=== PATIENT | female | born 1960 | race Caucasian/White ===

== ENCOUNTER 2018-08-26 09:03 | Outpatient (RCR) | payer MEDICARE, MEDICAID ==
[2018-08-26 11:04] LABS: INR 2.5 (0.8-1.4); PROTHROMBIN TIME PATIENT 27.7 SEC (12.2-14.7)
== END 2018-11-24 | disposition home or self-care (01) ==
LOC: EDSTATUS 09:03 → LAB FS 09:03
PROVIDERS: ATTEND Internal Medicine Cardiovascular Disease
DX: Z95.2 Presence of prosthetic heart valve (principal)
CPT/HCPCS: 36415; 85610

== ENCOUNTER → 2019-07-29 | Outpatient (CLI) | payer MEDICARE, MEDICAID ==
[2019-07-29 11:47] LABS: INR 1.5 (0.8-1.4); PROTHROMBIN TIME PATIENT 18.9 SEC (12.2-14.7)
== END ==
LOC: LAB FS 10:53
PROVIDERS: ATTEND Internal Medicine Cardiovascular Disease
DX: Z51.81 Encounter for therapeutic drug level monitoring (principal); Z79.01 Long term (current) use of anticoagulants
CPT/HCPCS: 36415; 85610

== ENCOUNTER 2019-11-03 10:25 | Outpatient (RCR) | payer MEDICARE, MEDICAID ==
[2019-11-03 12:24] LABS: INR 4.8 (0.8-1.4); PROTHROMBIN TIME PATIENT 44.3 SEC (12.2-14.7)
[2019-11-18 10:12] LABS: INR 2.5 (0.8-1.4); PROTHROMBIN TIME PATIENT 26.8 SEC (12.2-14.7)
== END 2020-02-01 | disposition home or self-care (01) ==
LOC: LAB FS 10:25
PROVIDERS: ATTEND Internal Medicine Cardiovascular Disease
DX: Z95.2 Presence of prosthetic heart valve (principal)
CPT/HCPCS: 36415; 85610

== ENCOUNTER 2020-09-09 09:46 | Emergency (ER) | payer MEDICARE, MEDICAID ==
[~2020-09-09] VITALS: Ht 157.4 cm; Wt 60.6 kg
[2020-09-09 10:15] LABS: COLOR,URINE YELLOW
[2020-09-09 10:16] LABS: BACTERIA,URINE TRACE /HPF; BILIRUBIN,URINE NEGATIVE (NEGATIVE); CLARITY,URINE CLEAR; GLUCOSE, URINE (UA) NEGATIVE (NEGATIVE); KETONES,URINE NEGATIVE (NEGATIVE); LEUKOCYTE ESTERASE ,URINE NEGATIVE (NEGATIVE); NITRITE,URINE NEGATIVE (NEGATIVE); PH,URINE 6.5 (5-9); PROTEIN,URINE NEGATIVE (NEGATIVE); WBC,URINE 0-2 /HPF
--- NOTE | 2020-09-09 10:18 | ED General ---
General Chief Complaint: Altered Mental Status Stated Complaint: AMS; DIZZINESS; HX HEAD INJ Source of Information: Patient, Family History of Present Illness Date Seen by Provider: Sep 09, 2020 Time Seen by Provider: 09:48 Initial Comments 60-year-old female presenting with family to the emergency department due to complaints of increasing confusion and trouble concentrating. She does have a history of Daniel and non-Hodgkin's lymphoma with treatment that cured it as well as cardiac disease and aortic valve replacement. She also has fallen at least twice in the last 2 weeks for unknown reasons. She states that she gets dizzy and falls. She has trouble remembering things and gets confused easily. She states this has been getting worse in the last 4 to 5 days. She had episode on the where she got dizzy lightheaded and fell and was shaking and then was sleeping the entire trip up to [facility] where she was seen by her cardiology provider. The wanted to keep her at [facility] and do a CT scan and other work-up and evaluation for her confusion but she refused and came home. She was supposed to go back yesterday to have a work-up and be admitted for the confusion and trouble concentrating. However, again she refused to let her family take her. Then today she reports that she was told she could come here to the ED and have testing and treatment done locally for her conditions and since she did not want to go "all the way" back up to [facility], she came here this morning to be checked out. She denies having any black or tarry stools or blood in her stool. She states that she had a normal bowel movement this morning. She denies taking lactulose or anything to help with her bowel movements. She does take a diuretic to help with her liver failure and edema. She states that her weight has been stable and has not really changed, it is usually right around 135 pounds. She denies any fever or chills, pain with urination, cough, shortness of breath, abdominal pain, diarrhea, change in vision, headache. She denies having pain anywhere but states that she has to write things down and cannot remember things for very long. She states this has been worse in the last 4 to 5 days. Timing/Duration: 4-5 Days, Getting Worse Severity: Moderate Associated Systoms: No Chest Pain, No Cough, No Diaphoresis, No Fever/Chills, No Headaches; Malaise (feels run down and does not want to do anything.), Nausea/Vomiting (chronic and not changed from baseline); No Rash, No Seizure, No Shortness of Air, No Syncope; Weakness (generalized) Allergies and Home Medications Allergies Coded Allergies: No Known Drug Allergies (Unverified , 09/09/20) Patient Home Medication List Home Medication List Reviewed: Yes Review of Systems Review of Systems Constitutional: No chills, No diaphoresis, No fever; malaise (generalized and feels fatigue and run down), weakness (general); No weight gain, No weight loss EENTM: No blurred vision, No double vision, No epistaxis Respiratory: No cough, No short of breath Cardiovascular: No chest pain, No edema (controlled with diuretics); vascular heart diseas (has Aortic Valve Replacement) Gastrointestinal: No abdominal pain, No constipation, No diarrhea, No hematemesis, No jaundice, No melena; vomiting (chronic and no different than usual) Genitourinary: No dysuria, No frequency Musculoskeletal: no symptoms reported Skin: no symptoms reported Psychiatric/Neurological: See HPI Hematologic/Lymphatic: Anemia (chronic and getting iron infusions at [facility]) Immunological/Allergic: see HPI Past Hdwblpg-[place]-Reaasi Hx Past Med/Social Hx: Reviewed Nursing Past Med/Soc Hx Patient Social History Alcohol Use: Denies Use Smoking Status: Unknown if Ever Smoked Past Medical History Abdominal, Cardiac (3 open heart surgeries, including an Aortic Valve Replacement), Hysterectomy, Open Heart Surgery (x3), Valve Replacement (Aortic Valve Replacement) Respiratory: No Cardiac: Yes Coronary Artery Disease, Valvular Heart Disease Neurological: No 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 oz. kg; BMI Method: General Appearance: No Apparent Distress, WD/WN HEENT: PERRL/EOMI; No Photophobia Neck: Full Range of Motion, Normal Inspection, Non Tender, Supple Respiratory: Chest Non Tender, Lungs Clear, Normal Breath Sounds, No Accessory Muscle Use, No Respiratory Distress Cardiovascular: Regular Rate, Rhythm, Normal Peripheral Pulses, Other (click from valve) Gastrointestinal: Normal Bowel Sounds, No Pulsatile Mass, Non Tender, Soft, Hepatomegaly Rectal: Deferred Back: Normal Inspection Extremity: Normal Capillary Refill, No Calf Tenderness, No Pedal Edema Neurologic/Psychiatric: Alert, Oriented x3, public administration teacher II-XII Norm as Tested Skin: Normal Color, Warm/Dry Progress/Results/Core Measures Suspected Sepsis SIRS Temperature: Pulse: Respiratory Rate: Laboratory Tests 09/09/20 10:15: White Blood Count 4.9 Blood Pressure / Mean: Laboratory Tests 09/09/20 10:15: Creatinine 1.41H, INR Comment 2.2H, Platelet Count 220, Total Bilirubin 1.3H Results/Orders Lab Results Laboratory Tests Test 09/09/20 09:52 09/09/20 10:15 09/09/20 10:20 Range/Units Urine Color YELLOW Urine Clarity CLEAR Urine pH 6.5 5-9 Urine Specific Melvin <=1.005 1.016-1.022 Urine Protein NEGATIVE NEGATIVE Urine Glucose (UA) NEGATIVE NEGATIVE Urine Ketones NEGATIVE NEGATIVE Urine Nitrite NEGATIVE NEGATIVE Urine Bilirubin NEGATIVE NEGATIVE Urine Urobilinogen 0.2 < = 1.0 MG/DL Urine Leukocyte Esterase NEGATIVE NEGATIVE Urine RBC (Auto) NEGATIVE NEGATIVE Urine RBC NONE /HPF Urine WBC 0-2 /HPF Urine Crystals NONE /LPF Urine Bacteria TRACE /HPF Urine Casts NONE /LPF Urine Mucus NEGATIVE /LPF Urine Culture Indicated NO Urine Opiates Screen NEGATIVE NEGATIVE Urine Oxycodone Screen NEGATIVE NEGATIVE Urine Methadone Screen NEGATIVE NEGATIVE Urine Propoxyphene Screen NEGATIVE NEGATIVE Urine Barbiturates Screen NEGATIVE NEGATIVE Ur Tricyclic Antidepressants Screen NEGATIVE NEGATIVE Urine Phencyclidine Screen NEGATIVE NEGATIVE Urine Amphetamines Screen NEGATIVE NEGATIVE Urine Methamphetamines Screen NEGATIVE NEGATIVE Urine Benzodiazepines Screen NEGATIVE NEGATIVE Urine Cocaine Screen NEGATIVE NEGATIVE Urine Cannabinoids Screen POSITIVE H NEGATIVE White Blood Count 4.9 4.3-11.0 10^3/uL Red Blood Count 3.63 L 4.35-5.85 10^6/uL Hemoglobin 9.5 L 11.5-16.0 G/DL Hematocrit 30 L 35-52 % Mean Corpuscular Volume 82 80-99 FL Mean Corpuscular Hemoglobin 26 25-34 PG Mean Corpuscular Hemoglobin Concent 32 32-36 G/DL Red Cell Distribution Width 23.9 H 10.0-14.5 % Platelet Count 220 130-400 10^3/uL Mean Platelet Volume 8.9 7.4-10.4 FL Immature Granulocyte % (Auto) 0 % Neutrophils (%) (Auto) 80 H 42-75 % Lymphocytes (%) (Auto) 9 L 12-44 % Monocytes (%) (Auto) 9 0-12 % Eosinophils (%) (Auto) 1 0-10 % Basophils (%) (Auto) 1 0-10 % Neutrophils # (Auto) 3.9 1.8-7.8 X 10^3 Lymphocytes # (Auto) 0.5 L 1.0-4.0 X 10^3 Monocytes # (Auto) 0.4 0.0-1.0 X 10^3 Eosinophils # (Auto) 0.0 0.0-0.3 10^3/uL Basophils # (Auto) 0.0 0.0-0.1 10^3/uL Immature Granulocyte # (Auto) 0.0 0.0-0.1 10^3/uL Prothrombin Time 24.9 H 12.2-14.7 SEC INR Comment 2.2 H 0.8-1.4 Activated Partial Thromboplast Time 43 H 24-35 SEC Sodium Level 131 L 135-145 MMOL/L Potassium Level 3.3 L 3.6-5.0 MMOL/L Chloride Level 94 L 98-107 MMOL/L Carbon Dioxide Level 25 21-32 MMOL/L Anion Gap 12 5-14 MMOL/L Blood Urea Nitrogen 30 H 7-18 MG/DL Creatinine 1.41 H 0.60-1.30 MG/DL Estimat Glomerular Filtration Rate 38 BUN/Creatinine Ratio 21 Glucose Level 93 70-105 MG/DL Calcium Level 8.5 8.5-10.1 MG/DL Corrected Calcium 8.6 8.5-10.1 MG/DL Total Bilirubin 1.3 H 0.1-1.0 MG/DL Aspartate Amino Transf (AST/SGOT) 30 5-34 U/L Alanine Aminotransferase (ALT/SGPT) 15 0-55 U/L Alkaline Phosphatase 82 40-136 U/L Total Protein 7.0 6.4-8.2 GM/DL Albumin 3.9 3.2-4.5 GM/DL Salicylates Level < 0.3 L 5.0-20.0 MG/DL Acetaminophen Level < 10 L 10-30 UG/ML Serum Alcohol < 10 <10 MG/DL Ammonia 102 H 11-32 UMOL/L My Orders Orders - BHARGAV BLOCK MD Ua Culture If Indicated (09/09/20 09:55) Drug Screen Stat (Urine) (09/09/20 09:55) Cbc With Automated Diff (09/09/20 10:13) Comprehensive Metabolic Panel (09/09/20 10:13) Alcohol (09/09/20 10:13) Acetaminophen (09/09/20 10:13) Salicylate (09/09/20 10:13) Ed Iv/Invasive Line Start (09/09/20 10:13) Monitor-Rhythm Ecg Trace Only (09/09/20 10:13) Protime With Inr (09/09/20 10:13) Partial Thromboplastin Time (09/09/20 10:13) Ct Head/Cervical Spine Wo (09/09/20 10:13) Ammonia (09/09/20 10:18) Vital Signs/I&O 09/09/20 09/09/20 09:52 11:15 Temp 36.7 36.7 Pulse 96 87 Resp 16 16 B/P (MAP) 105/56 (72) 96/60 (72) Pulse Ox 97 94 O2 Delivery Room Air Capillary Refill : Progress Note #1: Progress Note With patient having increasing confusion and trouble concentrating as well as a history of recurrent falls on warfarin and liver disease certainly head bleed or injury as well as hepatic encephalopathy or metabolic disorder or at the top of the differential diagnosis. Obtain CT scan of head and cervical spine with her recurrent falls. Check labs including coags and ammonia level. Urinalysis with urine drug screen. Differential diagnosis includes intracranial hemorrhage, hepatic encephalopathy, metabolic encephalopathy, hyponatremia, renal failure, liver failure, heart failure, UTI, stroke Progress Note #2: Time: 10:59 Progress Note Reviewed with pt and family that her CT head did not show bleeding or fracture of skull or cervical spine. She had no infection in urine and WBC normal. She has mild drop in her sodium to 131 but that is only slightly lower than our lower limit of normal range at 135. She has elevated Cr to 1.4 and GFR 38. Unsure what her baseline would be since she goes to [facility] and [facility]. Encouraged to check back with medicine if she is continued symptoms and more concerns. She has a follow-up appointment on with Dr. Gray. 1219 Ammonia level is elevated to 102 which would go along with hepatic encephalopathy. As the patient was advised she would need follow up with liver and kidney doctors at to help treat for this. She still was not wanting to go be admitted when she was in the ED and was more wanting to ensure she did not have any bleeding in her brain. Diagnostic Imaging Diagonstic Imaging: CT Plain Films/CT/US/NM/MRI: c-spine, head Comments NAME: DANIELLE ROD[facility]ERS [facility] REC#: [id number] PT STATUS: REG ER : 1960 PHYSICIAN: BHARGAV BLOCK MD ADMIT DATE: 09/09/20/ER FS Draft Date of Exam:09/09/20 CT HEAD/CERVICAL SPINE WO PROCEDURE: CT head and CT cervical spine without contrast. TECHNIQUE: Multiple contiguous axial images were obtained through the brain and cervical spine without the use of intravenous contrast. Sagittal and coronal reformations through the cervical spine were then performed. Auto Exposure Controls were utilized during the CT exam to meet ALARA standards for radiation dose reduction. INDICATION: Falls and increasing confusion. No prior studies are available for comparison. CT HEAD: Ventricles and sulci are within normal limits. There is no sulcal effacement or midline shift. No acute intra-axial or extra-axial hemorrhage is detected. Cisterns are patent. The visualized paranasal sinuses are clear. IMPRESSION: No acute intracranial process is detected. CT CERVICAL SPINE: There is straightening of the normal cervical lordotic curvature. Minimal anterolisthesis of C3 on C4 is noted. Significant degenerative disc disease is identified at C4-C5, C5-C6 and C6-C7 levels where there is significant disc space narrowing and marginal osteophyte formation. No fractures are identified. The prevertebral tissues are within normal limits. The odontoid is intact. IMPRESSION: Cervical spondylosis. No acute bony abnormality is detected. Dictated on workstation # [id number] Dict: 09/09/20 1034 Trans: 09/09/20 1051 [facility] [id number] Interpreted by: ANNETTE NORRIS MD Electronically signed by: Departure Impression Primary Impression: Confusional state Additional Impressions: Recurrent falls Renal insufficiency Hepatic encephalopathy Disposition: 01 HOME, SELF-CARE Condition: Stable Departure-Patient Inst. Decision time for Depature: 11:09 Referrals: DULCE MARIA GRAY MD (PCP/Family) Primary Care Physician Patient Instructions: Preventing Falls, Delirium (Confusion) (DC) Add. Discharge Instructions: No signs of bleeding in your brain on imaging today. Also no sign of infection. Your Sodium was at 131. Your kidney's do show some mile impairment in filtering but this may be due to your diuretics or water pills you have to take. Your Creatinine was 1.4 and GFR was 38. Usually the Creatinine is 1 or lower and the GFR is greater than 60. If you have continued problems or more concerns then you would need additional testing and evaluation by the liver and kidney doctors at [facility] where Cardiology and Neurology could assist with your evaluation and treatment. All discharge instructions reviewed with patient and/or family. Voiced understanding. BHARGAV BLOCK MD Sep 09, 2020 10:18
[2020-09-09 10:26] LABS: AMPHETAMINE SCREEN, URINE NEGATIVE (NEGATIVE); BARBITURATE SCREEN URINE NEGATIVE (NEGATIVE); BENZODIAZEPINES SCREEN URINE NEGATIVE (NEGATIVE); CANNABINOID SCREEN, URINE POSITIVE (NEGATIVE); COCAINE SCREEN URINE NEGATIVE (NEGATIVE); METHADONE STAT NEGATIVE (NEGATIVE); METHAMPHETAMINE SCREEN URINE S NEGATIVE (NEGATIVE); OPIATE SCREEN URINE NEGATIVE (NEGATIVE); OXYCODONE STAT NEGATIVE (NEGATIVE); PROPOXYPHENE STAT NEGATIVE (NEGATIVE); TRICYCLIC ANTIDEPRESSANTS SCRE NEGATIVE (NEGATIVE)
[2020-09-09 10:27] LABS: BASOPHILS % (AUTO) 1 % (0-10); EOSINOPHILS % (AUTO) 1 % (0-10); HEMATOCRIT 30 % (35-52); HEMOGLOBIN 9.5 G/DL (11.5-16.0); LYMPHOCYTES # (AUTO) 0.5 X 10^3 (1.0-4.0); LYMPHOCYTES % (AUTO) 9 % (12-44); MEAN CORPUSCULAR HEMOGLOBIN 26 PG (25-34); MEAN CORPUSCULAR HGB CONC 32 G/DL (32-36); MEAN CORPUSCULAR VOLUME 82 FL (80-99); MEAN PLATELET VOLUME 8.9 FL (7.4-10.4); MONOCYTES # (AUTO) 0.4 X 10^3 (0.0-1.0); MONOCYTES % (AUTO) 9 % (0-12); NEUTROPHILS # (AUTO) 3.9 X 10^3 (1.8-7.8); NEUTROPHILS % (AUTO) 80 % (42-75); PLATELET COUNT 220 10^3/uL (130-400); WHITE BLOOD COUNT 4.9 10^3/uL (4.3-11.0)
[2020-09-09 10:38] LABS: INR 2.2 (0.8-1.4); PROTHROMBIN TIME PATIENT 24.9 SEC (12.2-14.7)
[2020-09-09 10:52] LABS: ACETAMINOPHEN < 10 UG/ML (10-30); ALANINE AMINOTRANSFERASE 15 U/L (0-55); ALBUMIN 3.9 GM/DL (3.2-4.5); ALKALINE PHOSPHATASE 82 U/L (40-136); BILIRUBIN,TOTAL 1.3 MG/DL (0.1-1.0); BUN/CREATININE RATIO 21; CALCIUM 8.5 MG/DL (8.5-10.1); CARBON DIOXIDE 25 MMOL/L (21-32); CHLORIDE 94 MMOL/L (98-107); CREATININE SERUM 1.41 MG/DL (0.60-1.30); GFR ESTIMATED 38; GLUCOSE 93 MG/DL (70-105); POTASSIUM 3.3 MMOL/L (3.6-5.0); SALICYLATE < 0.3 MG/DL (5.0-20.0); SODIUM 131 MMOL/L (135-145)
--- NOTE | 2020-09-09 10:52 | Diagnostic Imaging Report ---
PROCEDURE: CT head and CT cervical spine without contrast. TECHNIQUE: Multiple contiguous axial images were obtained through the brain and cervical spine without the use of intravenous contrast. Sagittal and coronal reformations through the cervical spine were then performed. Auto Exposure Controls were utilized during the CT exam to meet ALARA standards for radiation dose reduction. INDICATION: Falls and increasing confusion. No prior studies are available for comparison. CT HEAD: Ventricles and sulci are within normal limits. There is no sulcal effacement or midline shift. No acute intra-axial or extra-axial hemorrhage is detected. Cisterns are patent. The visualized paranasal sinuses are clear. IMPRESSION: No acute intracranial process is detected. CT CERVICAL SPINE: There is straightening of the normal cervical lordotic curvature. Minimal anterolisthesis of C3 on C4 is noted. Significant degenerative disc disease is identified at C4-C5, C5-C6 and C6-C7 levels where there is significant disc space narrowing and marginal osteophyte formation. No fractures are identified. The prevertebral tissues are within normal limits. The odontoid is intact. IMPRESSION: Cervical spondylosis. No acute bony abnormality is detected. Dictated by: Dictated on workstation # [id number]
[2020-09-09 11:15] VITALS: BP 96/60
== END 2020-09-09 11:15 | disposition home or self-care (01) ==
LOC: EDUNIT# 09:46 → ER FS 09:48
DX: R41.0 Disorientation, unspecified (principal); R29.6 Repeated falls; N28.9 Disorder of kidney and ureter, unspecified; K72.90 Hepatic failure, unspecified without coma
CPT/HCPCS: 36415; 70450; 72125; 80053; 80306; 81000; 82140; 85025; 85610; 85730; 99284; G0480 ×3; 80320; 80329

== ENCOUNTER 2020-11-04 12:16 | Emergency (ER) | payer MEDICARE, MEDICAID ==
[~2020-11-04] VITALS: Ht 162 cm; Wt 60.0 kg
--- OUTSIDE RECORDS SUMMARY | 2020-11-04 12:21 | XMS REPORT | Encounter Summary ---
Author Author [facility] Organization [facility] Address Unknown Phone Unavailable Care Team Providers Care Solidworks Designer Name Role Phone Self, Garfield OLVERA PCP Riley Hopson MD 3 Encounter Details Care Team Description Date Type Department Allison Marti MD [address] [facility] [id number] [place] [address] Iron deficiency anemia due to chronic bl ood loss (Primary Dx); Hepatic cirrhosis, unspecified hepatic cirrhosis type, unspecified whether ascites present (HCC) 10/30/2020 Orders Only Hepatology: Main [facility], [facility] [address] [facility] [address] [place] [address] Social History Date Tobacco Use Types Packs/Day Years Used Never Smoker Smokeless Tobacco: Never Used Comments Alcohol Use Standard Drinks/Week Not Currently 0 (1 standard drink = 0.6 o z pure alcohol) Sex Assigned at Date Recorded 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 documented as of this encounter Functional Status Date of Assessment Functional Status Response 10/23/2020 Does the patient have a hearing impairment: No 10/12/2020 Does the patient have a visual impairment: Yes 10/12/2020 Does the patient have impaired ambulation: Yes 10/12/2020 Does the patient have an activity of daily living No (ADL) impairment: 10/12/2020 Does the patient have an instrumental activity of No daily living (IADL) impairment: Date of Assessment Cognitive Status Response 10/12/2020 Does the patient have a cognitive impairment: No documented as of this encounter Plan of Treatment Not on filedocumented as of this encounter Goals Goal Patient Associated Recent Progress Patient-Stat Aut hor Goal Type Problems ed? [facility] On track (10/23/2020 Yes Sheldon, 1:06 PM CDT) CHRYSTAL Singh documented as of this encounter Results * PROTIME INR (PT) (10/30/2020) INR 1.6 [facility] Specimen Blood - Blood Narrative Performed At This result has an attachment that is n ot available. Performing Organization Address City/State/ZIP Code P shane Number [facility] [address] [place] [address] documented in this encounter Visit Diagnoses Diagnosis Iron deficiency anemia due to chronic b lood loss - Primary Iron deficiency anemia secondary to blo od loss (chronic) Hepatic cirrhosis, unspecified hepatic cirrhosis type, unspecified whether ascites present (HCC) documented in this encounter Additional Health Concerns Assessment Noted Time A fall risk assessment has been completed for the pat ient 10/26/2020 8:00 AM CDT PHQ-2 Depression Total Score: 0 08/24/2020 7:42 AM CDT documented as of this encounter
--- OUTSIDE RECORDS SUMMARY | 2020-11-04 12:21 | XMS REPORT | Encounter Summary ---
Author Author [facility] Organization [facility] Address Unknown Phone Unavailable Care Team Providers Care Fisheries Technical Officer Name Role Phone Self, Gafrield OLVERA PCP Riley Hopson MD 3 Reason for Visit * Reason Comments Anticoagulation INR 1.6 Encounter Details Care Team Description Date Type Department Taisha Botello, CHRYSTAL Anticoagulation (INR 1.6) 10/27/2020 Anticoagulation Cardiology: [facility] [address] [place] [address] [address], [address] [place] [address] Social History Date Tobacco Use Types Packs/Day Years Used Never Smoker Smokeless Tobacco: Never Used Comments Alcohol Use Standard Drinks/Week Not Currently 0 (1 standard drink = 0.6 o z pure alcohol) Sex Assigned at Date Recorded 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 Longo. Orders given, Continue Warfarin 5mg daily and Lovenox BID. Recheck INR on Friday. Called and notified patient's who states, "She checked her INR today". Repeated instructions to patient's again a nd he then verbalized understanding. See telephone note. documented in this encounter Plan of Treatment Not on filedocumented as of this encounter Goals Goal Patient Associated Recent Progress Patient-Stat Aut hor Goal Type Problems ed? [facility] On track (10/23/2020 Yes Sheldon, 1:06 PM CDT) CHRYSTAL Singh documented as of this encounter Visit Diagnoses Diagnosis Paroxysmal atrial fibrillation (HCC) Atrial fibrillation Chronic anticoagulation Long-term (current) use of anticoagulan ts documented in this encounter Additional Health Concerns Assessment Noted Time A fall risk assessment has been completed for the pat ient 10/26/2020 8:00 AM CDT PHQ-2 Depression Total Score: 0 08/24/2020 7:42 AM CDT documented as of this encounter
--- OUTSIDE RECORDS SUMMARY | 2020-11-04 12:21 | XMS REPORT | Encounter Summary ---
Author Author [facility] Organization [facility] Address Unknown Phone Unavailable Care Team Providers Care Director Of Event Sales Name Role Phone Self, Garfield OLVERA PCP Riley Hopson MD 3 Encounter Details Care Team Description Date Type Department Caitlin Esparza RN Iron deficiency anemia due to chronic bl ood loss (Primary Dx) 10/26/2020 Orders Only Hepatology: [facility] [address] [facility] [address], [address] [place] [address] Social History Date Tobacco Use Types Packs/Day Years Used Never Smoker Smokeless Tobacco: Never Used Comments Alcohol Use Standard Drinks/Week Not Currently 0 (1 standard drink = 0.6 o z pure alcohol) Sex Assigned at Date Recorded 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 [facility] On track (10/23/2020 Yes Sheldon, 1:06 PM CDT) CHRYSTAL Singh documented as of this encounter Visit Diagnoses Diagnosis Iron deficiency anemia due to chronic b lood loss - Primary Iron deficiency anemia secondary to blo od loss (chronic) documented in this encounter Additional Health Concerns Assessment Noted Time A fall risk assessment has been completed for the pat ient 10/26/2020 8:00 AM CDT PHQ-2 Depression Total Score: 0 08/24/2020 7:42 AM CDT documented as of this encounter
--- OUTSIDE RECORDS SUMMARY | 2020-11-04 12:21 | XMS REPORT | Encounter Summary ---
Author Author [facility] Organization [facility] Address Unknown Phone Unavailable Care Team Providers Care Lozenge Maker Helper Name Role Phone Self, Garfield OLVERA PCP Riley Hopson MD 3 Reason for Visit * Reason Comments Anticoagulation INR 1.6 Encounter Details Care Team Description Date Type Department Josi Purvis BSN Anticoagulation (INR 1.6) 10/30/2020 Anticoagulation Cardiology: [facility] [address] [place] [address] [address], [address] [place] [address] Social History Date Tobacco Use Types Packs/Day Years Used Never Smoker Smokeless Tobacco: Never Used Comments Alcohol Use Standard Drinks/Week Not Currently 0 (1 standard drink = 0.6 o z pure alcohol) Sex Assigned at Date Recorded 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 [facility] On track (10/23/2020 Yes Sheldon, [...]
--- OUTSIDE RECORDS SUMMARY | 2020-11-04 12:21 | XMS REPORT | Encounter Summary ---
Author Author [facility] Organization [facility] Address Unknown Phone Unavailable Care Team Providers Care Marketing Strategist Name Role Phone Self, Garfield OLVERA PCP Riley Hopson MD 3 Reason for Visit * Reason Onset Date Comments Follow-up Phone Call 10/27/2020 Encounter Details Care Team Description Date Type Department Taisha Botello RN Follow-up Phone Call 10/27/2020 Telephone Cardiology: [facility] [address] [place] [address] [address], [address] [place] [address] Social History Date Tobacco Use Types Packs/Day Years Used Never Smoker Smokeless Tobacco: Never Used Comments Alcohol Use Standard Drinks/Week Not Currently 0 (1 standard drink = 0.6 o z pure alcohol) Sex Assigned at Date Recorded 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 Spoke with patient. I asked the bonnie garcia who was previously managing her INR. The patient states it was being managed by Dr. Riley Hopson in [place] but she now "answers to heart failure". I asked the patient what dose she was previously taking and she was unable to tell me. The patient then got upset and asked me why I was asking her questions. She states that Dr. Hopson told her he is now "hands off". I told her that we were not previo usly managing her warfarin outpatient and so I was asking for her dose. She con tinued to get upset and yell and then hung up the phone. Called patient back. Her answered the phone and asked me why I asked he r questions. I told him that we verify these doses with all of our patients and since we weren't previously managing I was wanting to verify her dose. When I asked what dose she was taking he states, "don't you have a computer in front of you? Do you think we are idiots?" I then explained again that we verify bonnie garcia's doses to make sure that they are taking the correct dose and that we have t he correct information in our system. He continued to berate this RN and tell m e he knows how to read a medicine bottle. He then asked what the patient's INR is and I told him 1.6. He responded "that is all she needed to know." I told h im I would call the doctor to see if any changes needed to be made and call him back. He verbalized understanding. Called Dr. Longo. Notified him that we were not previously managing but on the patient was told to call us with INR. Told him she is on 5mg once a d ay, prescribed yesterday, and taking Lovenox BID. She was admitted for GI Bleed and HF. Orders given for patient to continue current dose of Warfarin and Love nox and recheck INR on Friday. Returned call and spoke with patient's . Gave him the instructions per Sabi Longo. He states, "she checked her INR today". I again repeated the instruc tions from Dr. Longo. He then verbalized understanding. documented in this encounter Plan of Treatment Not on filedocumented as of this encounter Goals Goal Patient Associated Recent Progress Patient-Stat Aut hor Goal Type Problems ed? [facility] On track (10/23/2020 Yes [place], 1:06 PM CDT) CHRYSTAL Singh documented as of this encounter Visit Diagnoses Not on filedocumented in this encounter Additional Health Concerns Assessment Noted Time A fall risk assessment has been completed for the pat ient 10/26/2020 8:00 AM CDT PHQ-2 Depression Total Score: 0 08/24/2020 7:42 AM CDT documented as of this encounter
--- OUTSIDE RECORDS SUMMARY | 2020-11-04 12:21 | XMS REPORT | Encounter Summary ---
Author Author [facility] Organization [facility] Address Unknown Phone Unavailable Care Team Providers Care Expediter Clerk Name Role Phone Self, Garfield OLVERA PCP Riley Hopson MD 3 Reason for Visit * Reason Comments Anticoagulation INR 2.4 Encounter Details Care Team Description Date Type Department Josi Purvis BSN Anticoagulation (INR 2.4) 11/02/2020 Anticoagulation Cardiology: [facility] [address] [place] [address] [address], [address] [place] [address] Social History Date Tobacco Use Types Packs/Day Years Used Never Smoker Smokeless Tobacco: Never Used Comments Alcohol Use Standard Drinks/Week Not Currently 0 (1 standard drink = 0.6 o z pure alcohol) Sex Assigned at Date Recorded 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 [facility] On track (10/23/2020 Yes [place], 1:06 PM CDT) CHRYSTAL Singh documented as of this encounter Visit Diagnoses Diagnosis Chronic anticoagulation - Primary Long-term (current) use of anticoagulan ts Paroxysmal atrial fibrillation (HCC) Atrial fibrillation documented in this encounter Additional Health Concerns Assessment Noted Time A fall risk assessment has been completed for the pat ient 10/26/2020 8:00 AM CDT PHQ-2 Depression Total Score: 0 08/24/2020 7:42 AM CDT documented as of this encounter
--- OUTSIDE RECORDS SUMMARY | 2020-11-04 12:21 | XMS REPORT | Encounter Summary ---
Author Author [facility] Organization [facility] Address Unknown Phone Unavailable Care Team Providers Care Cellar Supervisor Name Role Phone Self, Garfield OLVERA PCP Riley Hopson MD 3 Reason for Visit * Reason Onset Date Comments Post-hospital Follow Up 10/27/2020 72 hour post h ospital follow up call Encounter Details Care Team Description Date Type Department Mariely Chan LPN Post-hospital Follow Up (72 hour post ho spital follow up call) 10/27/2020 Telephone Cardiology: [facility] [address] [facility] [address], [address] [place] [address] Social History Date Tobacco Use Types Packs/Day Years Used Never Smoker Smokeless Tobacco: Never Used Comments Alcohol Use Standard Drinks/Week Not Currently 0 (1 standard drink = 0.6 o z pure alcohol) Sex Assigned at Date Recorded 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 Transportation No issies Home Health No Medications Diet 200 mg cholesterol, 2 G Na Scale/Weight Yes 131.8 lbs today Signs and Symptoms Asymptomatic Continued education needed for heart failure symptom management and when to cont act our office. * Telephone Encounter - Mariely Chan LPN - 10/27/2020 2:09 PM CDT Patient Discharge Date from hospital: 10/26/20 Date Call Attempted: 10/27/20 Number of Attempts: 2 Date Call Completed: Second call placed to pt for 72 hour post hospital follow up call. LM on unautho rized VM requesting cb. Extole message sent. Next Appointment Next follow-up appointment on 11/09/20 at 1000 with Berna Maidson APRN. Transportation Home Health No Medications Diet 200 mg cholesterol, 2 G Na Scale/Weight Signs and Symptoms Intervention(s) Plan of Care Continued education needed for heart failure symptom management and when to cont act our office. * Telephone Encounter - Mariely Chan LPN - 10/27/2020 11:44 AM CDT Patient Discharge Date from hospital: 10/26/20 Date Call Attempted: 10/27/20 Number of Attempts: 1 Date Call Completed: Next Appointment Next follow-up appointment on 11/09/20 at 1000 with Berna Madison APRN. Transportation Home Health No Medications Diet 200 mg cholesterol, 2 G Na Scale/Weight Signs and Symptoms Intervention(s) Plan of Care Continued education needed for heart failure symptom management and when to cont act our office. documented in this encounter Plan of Treatment Not on filedocumented as of this encounter Goals Goal Patient Associated Recent Progress Patient-Stat Aut hor Goal Type Problems ed? [facility] On track (10/23/2020 Yes [place], 1:06 PM CDT) CHRYSTAL Singh documented as of this encounter Procedures Comments Procedure Name Priority Date/Time Associated Diag nosis HOME INR Routine 10/27/2020 documented in this encounter Results * HOME INR (10/27/2020) INR Home 1.6 OTHER OUTSIDE LAB Specimen Narrative Performed At Pt gave value over the phone OTHER OUTSIDE LAB Performing Organization Address City/State/ZIP Code P shane Number OTHER OUTSIDE LAB documented in this encounter Visit Diagnoses Not on filedocumented in this encounter Additional Health Concerns Assessment Noted Time A fall risk assessment has been completed for the pat ient 10/26/2020 8:00 AM CDT PHQ-2 Depression Total Score: 0 08/24/2020 7:42 AM CDT documented as of this encounter
--- OUTSIDE RECORDS SUMMARY | 2020-11-04 12:21 | XMS REPORT | Clinical Summary ---
Author Author [facility] Organization [facility] Address Unknown Phone Unavailable Care Team Providers Care Facilities Maintenance Assistant Name Role Phone Self, Garfield OLVERA PCP Riley Hopson MD 3 Source Comments Some departments are not documenting in the electronic medical record. If you d o not see the information that you expected, contact Release of Information in [facility] hospital [employer] Information Management department at [phone] for further assistan ce in locating additional records.[facility] Allergies No Known Active Allergies Medications End Date Status Medication Sig Dispensed Refills Start Date Active sertraline (ZOLOFT) 100 Take 100 mg 0 mg tablet by mouth daily. Active potassium chloride SR Take 20 mEq 0 (K-DUR) 20 mEq tablet by mouth twice daily. Take with a meal and a full glass of water. Active levothyroxine (SYNTHROID) Take 75 mcg 0 75 mcg tablet by mouth daily 30 minutes before breakfast. Active fluticasone propionate Apply to 0 (FLONASE) 50 each nostril mcg/actuation nasal as directed spray, suspension daily. Shake bottle gently before using. Active ergocalciferol (VITAMIN Take 1 0 D-2) 1,250 mcg (50,000 capsule by 1 unit) capsule mouth every 7 days. Active VASCEPA 1 gram capsule TAKE 2 0 03/22/2 02 CAPSULES BY 0 MOUTH TWICE DAILY WITH MEALS Active ascorbic acid (VITAMIN C) Take 500 mg 0 500 mg tablet by mouth daily. Active calcium carbonate Take 1,250 mg 0 (OS-KRUPA) 1250 mg tablet by mouth daily. Active pantoprazole DR Take one 90 tablet 0 (PROTONIX) 40 mg tablet by 1 tabletIndications: mouth daily. dyspepsia, Indications: gastroesophageal reflux indigestion, disease, heartburn, upper gastroesophag GI bleed eal reflux disease, heartburn, bleeding from stomach, esophagus or duodenum Active promethazine (PHENERGAN) Take 25 mg by 0 25 mg tablet mouth as Needed for Nausea or Vomiting. Active ondansetron (ZOFRAN) 4 mg Take 4 mg by 0 tablet mouth every 8 hours as needed for Nausea or Vomiting. Active metOLazone (ZAROXOLYN) Take one 40 tablet 1 2.5 mg tabletIndications: tablet by 1 Chronic heart failure mouth twice with preserved ejection weekly. Take fraction (HCC) on Friday and Friday. When directed, take 30-60 minutes prior to your Bumex. Active bumetanide (BUMEX) 1 mg Take three 180 tablet 0 tablet tablets by 1 mouth twice daily. Active warfarin (COUMADIN) 5 mg Take one 90 tablet 0 0 tablet tablet by 1 mouth daily. Take as directed by physician managing INR. Active enoxaparin (LOVENOX) 60 Inject 0.6 mL 14 each 0 mg syringe under the 1 skin every 12 hours. 10/26/2020 Discontinued (Reorder) warfarin (COUMADIN) 2.5 Take one 30 tablet 0 mg tablet tablet by 1 mouth daily. Take as directed by physician managing INR. 10/26/2020 Discontinued (Reorder) bumetanide (BUMEX) 2 mg Take 2.5 150 tablet 3 tablet tablets by 1 mouth twice daily. 10/26/2020 Discontinued spironolactone Take one 90 tablet 3 (ALDACTONE) 100 mg tablet tablet by 1 mouth daily for 360 days. Take with food. 10/26/2020 Discontinued metoprolol tartrate Take one-half 90 tablet 3 07/22 (LOPRESSOR) 25 mg tablet tablet by 1 mouth twice daily. 10/24/2020 Discontinued (Removed from [facility] Med List) FERROUS GLUCONATE PO Take 37.5 mg 0 by mouth every 48 hours. 10/26/2020 Discontinued enoxaparin (LOVENOX) 60 Inject 0.6 mL 20 each 0 mg syringe under the 1 skin every 12 hours for 10 days. Active Problems Problem Noted Date Hypoalbuminemia 10/23/2020 LEONORA (acute kidney injury) 10/21/2020 GI bleeding 10/20/2020 Cirrhosis 09/07/2020 Non-ischemic cardiomyopathy 09/07/2020 Paroxysmal atrial fibrillation 09/07/2020 Stage 3b chronic kidney disease 09/07/2020 Atrial tachycardia 09/07/2020 Iron deficiency anemia 08/03/2020 High output congestive heart failure 08/01/2020 Hypotension, unspecified 07/10/2020 Chronic heart failure with preserved ejection fractio n 06/07/2020 Anemia 06/07/2020 Severe tricuspid regurgitation 06/07/2020 Aortic valve prosthesis present 06/07/2020 Chronic anticoagulation 06/07/2020 Overview: Formatting of this note might be differ ent from the original. warfarin History of endocarditis 06/07/2020 Resolved Problems Problem Noted Date Resolved Date Affective changes following head trauma 09/07/2020 09/07/2020 Chest pain 06/01/2020 06/12/2020 Primary pulmonary hypertension 05/25/2020 021 Cor pulmonale (chronic) 05/25/2020 08/01/2020 Encounters Care Team Description Date Type Specialty Josi Purvis BSN Anticoagulation (INR 2.4) 11/02/2020 Anticoagulation Cardiology Fernie Camargo LPN Follow-up Phone Call 10/31/2020 Telephone Cardiology Josi Purvis BSN Anticoagulation (INR 1.6) 10/30/2020 Anticoagulation Cardiology Kathryn Barbosa MA Labs Only 10/30/2020 Documentation Cardiology Orquidea Doe MD Iron deficiency anemia due to chronic bl ood loss (Primary Dx); Hepatic cirrhosis, unspecified hepatic cirrhosis type, unspecified whether ascites present (HCC) 10/30/2020 Orders Only Hepatology Fernie Camargo LPN 10/30/2020 Telephone Cardiology Taisha Botello RN Anticoagulation (INR 1.6) 10/27/2020 Anticoagulation Cardiology Taisha Botello RN Follow-up Phone Call 10/27/2020 Telephone Cardiology Mariely Chan LPN Post-hospital Follow Up (72 hour post ho spital follow up call) 10/27/2020 Telephone Cardiology Caitlin Esparza RN Iron deficiency anemia due to chronic bl ood loss (Primary Dx) 10/26/2020 Orders Only Hepatology KizzyBrittanyby 10/25/2020 Clinical Cardiology Support Riley Caraballo MD Shih, Grace H, MD 10/21/2020 Anesthesia Gastroenterology Event Cosmo Gomez MD ESOPHAGOGASTRODUODENOSCOPY WITH SPECIMEN COLLECTION BY BRUSHING/ WASHING 10/21/2020 Surgery Gastroenterology Javi Tillman MD 10/21/2020 Hospital Cardiology Encounter Leonardo Davis MD Raza, Sidra, MD Rahim, Zhilwan K, GI bleeding 10/20/2020 Hospital - Encounter 10/26/2020 10/20/2020 Travel Leonardo Davis MD Not Performed CATHETERIZATION RIGHT HEART WITH INSERTION PULMONARY ARTERY SENSOR 10/20/2020 Surgery Cardiology Kathi Chen RN 10/19/2020 Telephone Cardiology Kathi Chen RN 10/19/2020 Prep for Case Cardiology Kathi Chen RN 10/19/2020 Prep for Case Cardiology Kathryn Barbosa MA Labs Only (COVID result) 10/17/2020 Documentation Cardiology Nithya Madison, CUFF STITCHER-WASHING MACHINE MECHANIC Follow Up 10/12/2020 Office Visit Cardiology Santos Hickman MD 10/12/2020 Hospital Lab Encounter Carlos Longo MD Non-ischemic cardiomyopathy (HCC); Dilated cardiomyopathy (HCC) 10/12/2020 Orders Only Cardiology 10/12/2020 Travel Kathi Chen RN Erroneous encounter-disregard 10/11/2020 Telephone Cardiology Reagan Edgar RN Precertification (Medicare) 10/06/2020 Documentation Cardiology Kathi Chen RN Chronic heart failure with preserved eje ction fraction (HCC) (Primary Dx); Encounter for screening laboratory testing for COVID-19 virus in asymptomatic patient 10/06/2020 Prep for Case Cardiology Kathi Chen RN Other (CardioMEMS Screen) 10/06/2020 Documentation Cardiology Christelle Robbins RN 10/06/2020 Orders Only Cardiology Orquidea Doe MD Other 10/05/2020 Telephone Transplant Surgery Orquidea Doe MD Other 10/03/2020 Telephone Transplant Surgery Wisam Valencia MD General Question; Swelling 10/03/2020 Telephone Oncology Fernie Camargo LPN Worsening Symptoms; Other (Symptoms impr oving see note) 09/27/2020 Telephone Cardiology Wisam Valencia MD Iron deficiency anemia, unspecified iron deficiency anemia type (Primary Dx); Cirrhosis of liver with ascites, unspecified hepatic cirrhosis type (HCC) 09/21/2020 Office Visit Oncology Telehealth Orquidea Doe MD Other cirrhosis of liver (HCC) 09/20/2020 Hospital Lab Encounter Taisha Botello RN 09/20/2020 Orders Only Cardiology Fernie Camargo LPN Follow Up 09/08/2020 Telephone Cardiology Nithya Madison APRN-WASHING MACHINE MECHANIC Follow Up (F/U) 09/07/2020 Office Visit Cardiology 09/07/2020 Travel Carlos Longo MD High output congestive heart failure (HC C) (Primary Dx); Iron deficiency anemia due to chronic blood loss 09/05/2020 Infusion Infusion 09/05/2020 Travel Orquidea Doe MD 09/01/2020 Documentation Transplant Surgery Orquidea Doe MD 08/24/2020 Hospital Lab Encounter Orquidea Doe MD Chronic heart failure with preserved eje ction fraction (HCC) (Primary Dx); Iron deficiency anemia, unspecified iron deficiency anemia type; Other cirrhosis of liver (HCC) 08/24/2020 Office Visit Transplant Surgery 08/24/2020 Carlos Sutherland MD High output congestive heart failure (HC C) (Primary Dx); Iron deficiency anemia due to chronic blood loss 08/22/2020 Infusion Infusion 08/22/2020 Travel Fernie Camargo LPN Medication Question 08/11/2020 Telephone Cardiology Wisam Valencia MD Infusion Therapy (Iron) 08/10/2020 Telephone Oncology Mariely Chan LPN Medication Refill 08/08/2020 Refill Cardiology Trevor Busby Financial/Insurance Questions (Benefit C ollection ) 08/04/2020 Telephone Transplant Surgery from Last 3 Months Immunizations Name Administration Dates Next Due Flu Vaccine Quadrivalent 05/25/2019 Recombinant =>20 YO PF Pneumococcal Vaccine 03/05/2018 (23-Angelique Adult) Pneumococcal 11/21/2017 Vaccine(13-Angelique Peds/immunocompromised adult) Surgical History Surgery Date Site/Laterality Comments AORTIC VALVE REPLACEMENT 05/22/2009 - mechanical 06/21/2009 UPPER GASTROINTESTINAL 06/06/2020 N/A ESOPHAG OGASTRODUODENOSCOPY WITH BIOPSY - FLEXIBLE ENDOSCOPY performed by Leonidas Hernández MD at [facility] COLONOSCOPY 06/06/2020 N/A COLONOSCOPY LAWSON GNOSTIC WITH SPECIMEN COLLECTION BY BRUSHING/ WASHING - FLEXIBLE performed by Bao Hernández MD at [facility] UPPER GASTROINTESTINAL 10/21/2020 N/A ESOPHAG OGASTRODUODENOSCOPY WITH SPECIMEN ENDOSCOPY - 10/22/2020 COLLECTION BY BRUSH ING/ WASHING performed by Cosmo Gomez MD at [facility] SIGMOIDOSCOPY 10/21/2020 N/A SIGMOIDOSCOPY W ITH CONTROL OF BLEEDING - FLEXIBLE - 10/22/2020 performed by Cosmo Gomez MD at [facility] SIGMOIDOSCOPY 10/21/2020 SIGMOIDOSCOPY WITH DIRECTED SUBMUCOSAL INJECTION - - 10/22/2020 FLEXIBLE performed by Cosmo Pastor MD at [facility] Medical History Medical History Date Comments Disorder of thyroid gland Hypertension Cancer (HCC) Non- hodgkins lymphoma, teja mo Iron deficiency anemia 08/03/2020 Iron deficiency anemia 08/03/2020 Family History Medical History Relation Name Comments COPD Mother Relation Name Status Comments Father Alive Mother Social History Date Tobacco Use Types Packs/Day Years Used Never Smoker Smokeless Tobacco: Never Used Tobacco Cessation: Counseling Given: No Comments Alcohol Use Standard Drinks/Week Not Currently 0 (1 standard drink = 0.6 o z pure alcohol) Sex Assigned at Date Recorded Female 06/01/2020 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 Last Filed Vital Signs Reading Time Taken Comments Vital Sign 96/60 10/26/2020 8:00 AM CDT Blood Pressure 94 10/26/2020 8:00 AM CDT Pulse 37 C (98.6 F) 10/26/2020 8:00 AM CDT Temperature 18 09/05/2020 7:55 AM CDT Respiratory Rate 100% 10/26/2020 8:00 AM CDT Oxygen Saturation - - Inhaled Oxygen Concentration 60.4 kg (133 lb 3.2 oz) 10/26/2020 4:00 AM CDT Weight 157.5 cm (5' 2") 10/23/2020 5:23 PM CDT Height 24.36 10/23/2020 5:23 PM CDT Body Mass Index Plan of Treatment Health Maintenance Due Date Last Done Comments MEDICARE ANNUAL WELLNESS 1960 VISIT DTAP/TDAP VACCINES (1 - 01/05/1980 Tdap) PHYSICAL (COMPREHENSIVE) 01/05/1980 EXAM CERVICAL CANCER SCREENING 1983 BREAST CANCER SCREENING 2002 SHINGLES RECOMBINANT 01/05/2012 VACCINE (1 of 2) INFLUENZA VACCINE 12/22/2020 05/25/2019 COLORECTAL CANCER 06/06/2030 06/06/2020, SCREENING 06/06/2020 HEPATITIS C SCREENING Completed 06/01/2020 HIV SCREENING Completed 06/02/2020 Goals Goal Patient Associated Recent Progress Patient-Stat Aut hor Goal Type Problems ed? 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 therapist home based Comments Procedure Name Priority Date/Time Associated Diag nosis HOME INR Routine 11/02/2020 PROTIME INR (PT) Routine 10/30/2020 Hepatic cirrh osis, unspecified hepatic cirrhosis type, unspecified whether ascites present (HCC) HOME INR Routine 10/27/2020 HC PTT(APTT) Routine 10/26/2020 6:16 AM CDT HC PT(INR) Routine 10/26/2020 6:16 AM CDT HC MAGNESIUM Routine 10/26/2020 6:16 AM CDT HC COMPREHENSIVE Routine 10/26/2020 METABOLIC PANEL 6:16 AM CDT HC CBC,AUTOMATED Routine 10/26/2020 6:16 AM CDT HC PTT(APTT) STAT 10/26/2020 12:27 AM CDT HC PTT(APTT) STAT 10/25/2020 6:00 PM CDT HC MAGNESIUM Add on 10/25/2020 6:05 AM CDT HC ALPHA FETO PROTEIN, Routine 10/25/2020 SERUM 6:05 AM CDT HC COMPREHENSIVE Routine 10/25/2020 METABOLIC PANEL 6:05 AM CDT HC CBC,AUTOMATED Routine 10/25/2020 6:05 AM CDT HC PT(INR) Routine 10/25/2020 6:05 AM CDT HC IRON BINDING CAPACITY Add on 10/24/2020 + %SAT 5:47 AM CDT HC COMPREHENSIVE Routine 10/24/2020 METABOLIC PANEL 5:47 AM CDT HC CBC,AUTOMATED Routine 10/24/2020 5:47 AM CDT HC PT(INR) Routine 10/24/2020 5:47 AM CDT HC COMPREHENSIVE Routine 10/23/2020 METABOLIC PANEL 12:35 PM CDT HC CBC,AUTOMATED Routine 10/23/2020 12:35 PM CDT HC PT(INR) Routine 10/23/2020 8:37 AM CDT HC HEMOGLOBIN GERRY 10/22/2020 11:17 PM CDT TRANSFUSE RBC'S Routine 10/22/2020 9:53 PM CDT HC LACTIC ACID(LACTATE) STAT 10/22/2020 8:59 PM CDT HC CBC,AUTOMATED Routine 10/22/2020 8:59 PM CDT CBC Routine 10/22/2020 12:34 PM CDT HC MAGNESIUM Add on 10/22/2020 3:12 AM CDT HC CBC,AUTOMATED Routine 10/22/2020 3:12 AM CDT HC PT(INR) Routine 10/22/2020 3:12 AM CDT HC COMPREHENSIVE Routine 10/22/2020 METABOLIC PANEL 3:12 AM CDT SIGMOIDOSCOPY WITH 10/21/2020 Hematochezia DIRECTED SUBMUCOSAL 10:32 PM CDT INJECTION - FLEXIBLE SIGMOIDOSCOPY WITH 10/21/2020 Hematochezia CONTROL OF BLEEDING - 10:32 PM CDT FLEXIBLE ESOPHAGOGASTRODUODENOSCOP 10/21/2020 Hematochezi a Y WITH SPECIMEN 10:32 PM CDT COLLECTION BY BRUSHING/ WASHING EGD REPORT 10/21/2020 9:59 PM CDT FLEXIBLE SIGMOIDOSCOPY 10/21/2020 9:34 PM CDT TRANSFUSE RBC'S Routine 10/21/2020 8:51 PM CDT HC PT(INR) STAT 10/21/2020 6:46 PM CDT CBC STAT 10/21/2020 6:46 PM CDT TRANSFUSE PLASMA (FFP) Routine 10/21/2020 5:59 PM CDT TRANSFUSE RBC'S STAT 10/21/2020 1:45 PM CDT TRANSFUSE RBC'S Routine 10/21/2020 1:35 PM CDT PREPARE PLASMA (FFP) Routine 10/21/2020 12:38 PM CDT 2D + DOPPLER ECHO W/ GERRY 10/21/2020 CONTRAST 9:56 AM CDT TROPONIN-I Routine 10/21/2020 9:50 AM CDT ECG 12-LEAD Routine 10/21/2020 8:56 AM CDT ECG 12-LEAD Routine 10/21/2020 8:55 AM CDT HC TROPONIN-I Add on 10/21/2020 5:15 AM CDT HC CBC,AUTOMATED Routine 10/21/2020 5:15 AM CDT HC PT(INR) Routine 10/21/2020 5:15 AM CDT HC COMPREHENSIVE Routine 10/21/2020 METABOLIC PANEL 5:15 AM CDT HC LACTIC ACID(LACTATE) Routine 10/21/2020 5:10 AM CDT HC CBC,AUTOMATED Routine 10/20/2020 10:15 PM CDT HC PHOSPHOROUS, SERUM Code 10/20/2020 5:12 PM CDT HC MAGNESIUM Code 10/20/2020 5:12 PM CDT HC TROPONIN-I Code 10/20/2020 5:12 PM CDT HC COMPREHENSIVE Code 10/20/2020 METABOLIC PANEL 5:12 PM CDT HC PTT(APTT) Code 10/20/2020 5:12 PM CDT HC PT(INR) Code 10/20/2020 5:12 PM CDT CBC Code 10/20/2020 5:12 PM CDT POC GLUCOSE 10/20/2020 5:11 PM CDT TRANSFUSE RBC'S Routine 10/20/2020 4:37 PM CDT BASIC METABOLIC PANEL STAT 10/20/2020 3:29 PM CDT COVID-19 (SARS-COV-2) PCR Routine 10/20/2020 12:53 PM CDT HC BLOOD TYPING, ABO STAT 10/20/2020 CONFIRM 91 11:54 AM CDT HC ABO GROUP STAT 10/20/2020 11:33 AM CDT HC PT(INR) POC 10/20/2020 9:13 AM CDT HC MAGNESIUM Add on 10/20/2020 9:07 AM CDT HC PT(INR) Add on 10/20/2020 9:07 AM CDT BLUE TOP TUBE 10/20/2020 9:07 AM CDT HC BASIC METABOLIC PANEL STAT 10/20/2020 9:07 AM CDT HC CBC,AUTOMATED STAT 10/20/2020 9:07 AM CDT ECG 12-LEAD STAT 10/20/2020 8:46 AM CDT CATHETERIZATION RIGHT Routine 10/20/2020 Chronic heart failure HEART WITH INSERTION 8:45 AM CDT with preserved e jection PULMONARY ARTERY SENSOR fraction (HCC) TELEMETRY STRIPS-SCAN 10/20/2020 12:00 AM CDT TELEMETRY STRIPS-SCAN 10/20/2020 12:00 AM CDT TELEMETRY STRIPS-SCAN 10/20/2020 12:00 AM CDT TELEMETRY STRIPS-SCAN 10/20/2020 12:00 AM CDT TELEMETRY STRIPS-SCAN 10/20/2020 12:00 AM CDT TELEMETRY STRIPS-SCAN 10/20/2020 12:00 AM CDT TELEMETRY STRIPS-SCAN 10/20/2020 12:00 AM CDT TELEMETRY STRIPS-SCAN 10/20/2020 12:00 AM CDT ECG-SCAN 10/20/2020 12:00 AM CDT ECG-SCAN 10/20/2020 12:00 AM CDT ECG-SCAN 10/20/2020 12:00 AM CDT ECG-SCAN 10/20/2020 12:00 AM CDT TELEMETRY STRIPS-SCAN 10/20/2020 12:00 AM CDT TELEMETRY STRIPS-SCAN 10/20/2020 12:00 AM CDT TELEMETRY STRIPS-SCAN 10/20/2020 12:00 AM CDT TELEMETRY STRIPS-SCAN 10/20/2020 12:00 AM CDT TELEMETRY STRIPS-SCAN 10/20/2020 12:00 AM CDT TELEMETRY STRIPS-SCAN 10/20/2020 12:00 AM CDT TELEMETRY STRIPS-SCAN 10/20/2020 12:00 AM CDT TELEMETRY STRIPS-SCAN 10/20/2020 12:00 AM CDT TELEMETRY STRIPS-SCAN 10/20/2020 12:00 AM CDT COVID-19 (SARS-COV-2) PCR STAT 10/16/2020 Enco unter for screening laboratory testing for COVID-19 virus in asymptomatic patient HC B-TYPE NATRIURETIC Routine 10/12/2020 Non-isch emic PEPTIDE 10:28 AM CDT cardiomyopathy (HCC ) Dilated cardiomyopathy (HCC) HC CBC,AUTOMATED Routine 10/12/2020 Chronic heart failure 10:28 AM CDT with preserved ejection fraction (HCC) HC BASIC METABOLIC PANEL Routine 10/12/2020 Chron ic heart failure 10:28 AM CDT with preserved ejection fraction (HCC) ECG-SCAN 10/12/2020 12:00 AM CDT AL CONSLTJ&REPRT SLIDES 09/20/2020 PREPARED ELSEWHERE 9:42 AM CDT PATHOLOGY REPORTS FROM 09/20/2020 OUTSIDE SCAN 12:00 AM CDT HC CBC W/ AUTOMATED DIFF Routine 08/24/2020 Chron ic heart failure 9:19 AM CDT with preserved ejection fraction (HCC) Iron deficiency anemia, unspecified iron deficiency anemia type HC COMPREHENSIVE Routine 08/24/2020 Chronic heart failure METABOLIC PANEL 9:19 AM CDT with preserved ejec tion fraction (HCC) Iron deficiency anemia, unspecified iron deficiency anemia type HC PT(INR) Routine 08/24/2020 Chronic heart f ailure 9:19 AM CDT with preserved ejection fraction (HCC) Iron deficiency anemia, unspecified iron deficiency anemia type HC BILIRUBIN DIRECT Routine 08/24/2020 Chronic he art failure 9:19 AM CDT with preserved ejection fraction (HCC) Iron deficiency anemia, unspecified iron deficiency anemia type HC HAPTOGLOBIN;QUANT Routine 08/24/2020 Chronic h eart failure 9:19 AM CDT with preserved ejection fraction (HCC) Iron deficiency anemia, unspecified iron deficiency anemia type HC RETICULOCYTE COUNT; Routine 08/24/2020 Chronic heart failure AUTO 9:19 AM CDT with preserved ejec tion fraction (HCC) Iron deficiency anemia, unspecified iron deficiency anemia type PERIPHERAL SMEAR Routine 08/24/2020 Chronic heart failure 9:19 AM CDT with preserved ejection fraction (HCC) Iron deficiency anemia, unspecified iron deficiency anemia type HC 25-OH VITAMIN D Routine 08/24/2020 Chronic hea rt failure 9:19 AM CDT with preserved ejection fraction (HCC) Iron deficiency anemia, unspecified iron deficiency anemia type Other cirrhosis of liver (HCC) HC VITAMIN A Routine 08/24/2020 Chronic heart f ailure 9:19 AM CDT with preserved ejection fraction (HCC) Iron deficiency anemia, unspecified iron deficiency anemia type HC ZINC(ZN) Routine 08/24/2020 Chronic heart f ailure 9:19 AM CDT with preserved ejection fraction (HCC) Iron deficiency anemia, unspecified iron deficiency anemia type from Last 3 Months Results * HOME INR (11/02/2020) Only the most recent of 2 results within the time period is included. INR Home 2.4 OTHER OUTSIDE LAB Specimen Narrative Performed At OTHER OUTSIDE LAB Called in by pt Performing Organization Address City/[facility] Code P shane Number OTHER OUTSIDE LAB * PROTIME INR (PT) (10/30/2020) Only the most recent of 11 results within the time period is included. INR 1.6 [facility] Specimen Blood - Blood Narrative Performed At This result has an attachment that is n ot available. Performing Organization Address [facility] P shane Number [facility] [address] [id number] * PTT (APTT) (10/26/2020 6:16 AM CDT) Only the most recent of 4 results within the time period is included. APTT 34.5 24.0 - 36.5 SEC [facility] Specimen Performing Organization Address [facility] P shane Number [facility] [address] [place] [address] * CBC (10/26/2020 6:16 AM CDT) Only the most recent of 13 results within the time period is included. White Blood 7.0 4.5 - 11.0 K/UL [facility] Cells RBC 2.50 (L) 4.0 - 5.0 M/UL [facility] Hemoglobin 8.2 (L) 12.0 - 15.0 GM/DL [facility] Hematocrit 23.7 (L) 36 - 45 % [facility] MCV 94.8 80 - 100 FL [facility] MCH 32.7 26 - 34 PG [facility] MCHC 34.5 32.0 - 36.0 G/DL [facility] RDW 17.2 (H) 11 - 15 % [facility] Platelet Count 167 150 - 400 K/UL [facility] MPV 7.1 7 - 11 FL [facility] Specimen Blood Performing Organization Address [facility]/ZIP Code P shane Number [facility] [address] [place] [address] * MAGNESIUM (10/26/2020 6:16 AM CDT) Only the most recent of 5 results within the time period is included. Magnesium 1.9 1.6 - 2.6 mg/dL [facility] Specimen Blood Performing Organization Address City/[facility]/ZIP Code P shane Number [facility] [address] [place] [address] * COMPREHENSIVE METABOLIC PANEL (10/26/2020 6:16 AM CDT) Only the most recent of 8 results within the time period is included. Sodium 131 (L) 137 - 147 MMOL/L [facility] Potassium 4.5 3.5 - 5.1 MMOL/L [facility] Chloride 98 98 - 110 MMOL/L [facility] Glucose 92 70 - 100 MG/DL [facility] Blood Urea 19 7 - 25 MG/DL [facility] Nitrogen Creatinine 1.14 (H) 0.4 - 1.00 MG/DL [facility] Calcium 7.7 (L) 8.5 - 10.6 MG/DL [facility] Total Protein 5.2 (L) 6.0 - 8.0 G/DL [facility] Total Bilirubin 0.8 0.3 - 1.2 MG/DL [facility] Albumin 2.9 (L) 3.5 - 5.0 G/DL [facility] Alk Phosphatase 60 25 - 110 U/L [facility] AST (SGOT) 24 7 - 40 U/L [facility] CO2 26 21 - 30 MMOL/L [facility] ALT (SGPT) 9 7 - 56 U/L [facility] Anion Gap 7 3 - 12 [facility] eGFR Non 49 (L) >60 mL/min [facility] Comment: [place] The eGFR is not validated f or use in drug dosing adjustments. Continue to use estimated creatinine clearance per dosing reference text. Please contact the Clinical Pharmacist for questions. eGFR 59 (L) >60 mL/min [facility] [place] Comment: The eGFR is not validated for use in drug dosing adjustments. Continue to use estimated creatinine clearance per dosing reference text. Please contact the Clinical Pharmacist for questions. Specimen Blood Performing Organization Address City/[facility]/ZIP Code P shane Number [facility] [address] [place] [address] * ALPHA FETO PROTEIN (AFP) (10/25/2020 6:05 AM CDT) Alpha Feto 1.4 0.0 - 15.0 NG/ML [facility] Protein Specimen Blood Performing Organization Address City/[facility]/ZIP Code P shane Number MAIN LAB [address] [place] [address] * IRON + BINDING CAPACITY + %SAT+ FERRITIN (10/24/2020 5:47 AM CDT) Iron 32 (L) 50 - 160 MCG/DL [facility] Iron 262 (L) 270 - 380 MCG/DL [facility] Binding-TIBC % Saturation 12 (L) 28 - 42 % [facility] Ferritin 130 10 - 200 NG/ML [facility] Specimen Performing Organization Address City/[facility]/ZIP Code P shane Number [facility] [address] [place] [address] * HEMOGLOBIN & HEMATOCRIT (10/22/2020 11:17 PM CDT) Hemoglobin 7.9 (L) 12.0 - 15.0 GM/DL MA[facility] LAB Hematocrit 22.8 (L) 36 - 45 % MAIN LAB Specimen Blood Performing Organization Address City/[facility]/ZIP Code P shane Number MAIN LAB [address] [place] [address] * TRANSFUSE RBC'S (10/22/2020 9:53 PM CDT) Only the most recent of 4 results within the time period is included. Specimen Blood * LACTIC ACID(LACTATE) (10/22/2020 8:59 PM CDT) Only the most recent of 2 results within the time period is included. Lactic Acid 1.9 0.5 - 2.0 MMOL/L [facility] LAB Specimen Blood Performing Organization Address City/[facility]/ZIP Code P shane Number MAIN LAB [address] [place] [address] * EGD REPORT (10/21/2020 9:59 PM CDT) Provation Patient Name: Khurram SPARKS OTHER Report Procedure Date: 10/21/2020 9:59 RESULT S PM CSN: [id number] Date of : 1960 Gender: Female Attending Physician: Cosmo Gomez MD Procedure: Upper GI endoscopy Indications: Hematochezia Providers: Cosmo Gomez MD (Doctor), Jesus Senior (Fellow), Sarah Sapp (Nurse), Omid Brooke, Senior Java Architect (Senior Java Architect) Referring Physician: Cosmo Gomez MD Medications: Monitored Anesthesia Care Complications: No immediate complications. Procedure: Pre-Anesthesia Assessment: - Prior to the procedure, a History and Physical was performed, and patient medications and allergies were reviewed. The patient's tolerance of previous anesthesia was also reviewed. The risks and benefits of the procedure and the sedation options and risks were discussed with the patient. All questions were answered, and informed consent was obtained. Prior Anticoagulants: The patient has taken heparin. ASA Grade Assessment: IV - A patient with severe systemic disease that is a constant threat to life. After reviewing the risks and benefits, the patient was deemed in satisfactory condition to undergo the procedure. After obtaining informed consent, the endoscope was passed under direct vision. Throughout the procedure, the patient's blood pressure, pulse, and oxygen saturations were monitored continuously. The Endoscope was introduced through the mouth, and advanced to the second part of duodenum. The upper GI endoscopy was accomplished without difficulty. The patient tolerated the procedure well. Findings: Esophagogastric landmarks were identified: the gastroesophageal junction was found at 43 cm from the incisors. The Z-line was irregular. Tongue of salmon colored mucosa seen measuring 1 cm, but no biopsies given clinical context. No esophageal varices. No gross lesions were noted in the entire examined stomach. No gastric varices. Bilious fluid in stomach The duodenal bulb, first portion of the duodenum and second portion of the duodenum were normal. Impression: - Esophagogastric landmarks identified. - Z-line irregular. Tongue of salmon colored mucosa, not biopsied given clinical context - No gross lesions in the stomach. No esophageal or gastric varices - Normal duodenal bulb, first portion of the duodenum and second portion of the duodenum. - No specimens collected. Estimated Blood Loss: Estimated blood loss: none. Recommendation: - Patient has a contact number available for emergencies. The signs and symptoms of potential delayed complications were discussed with the patient. Return to normal activities tomorrow. Written discharge instructions were provided to the patient. - Resume previous diet. - Continue present medications. - proceed to flex sig - consider outpatient EGD after discussion and pending clinical course to evaluate for Castellanos's esophagus Scope In: 10:48:20 PM Scope Out: 10:54:26 PM Total Procedure Duration Time 0 hours 6 minutes 6 seconds Procedure Code(s): --- Professional --- 67502, Esophagogastroduodenoscopy, flexible, transoral; diagnostic, including collection of specimen(s) by brushing or washing, when performed (separate procedure) Diagnosis Code(s): --- Professional --- K22.8, Other specified diseases of esophagus K92.1, Melena (includes Hematochezia) CPT copyright 2020 [employer]. All rights reserved. The codes documented in this report are preliminary and upon notch machine operator review may be revised to meet current compliance requirements. Attending Participation: I was present and participated during the entire procedure, including non-turpin portions. MD Cosmo Emmanuel MD 10/23/2020 3:03:01 PM The attending physician has electronically signed and finalized this document. Jesus Senior, Number of Addenda: 0 Note Initiated On: 10/21/2020 9:59 PM Specimen Performing Organization Address City/State/ZIP Code P shane Number KU OTHER RESULTS * FLEXIBLE SIGMOIDOSCOPY (10/21/2020 9:34 PM CDT) Provation Patient Name: Khurram SPARKS OTHER Report Procedure Date: 10/21/2020 9:34 RESULT S PM CSN: [id number] Date of : 1960 Gender: Female Attending Physician: Cosmo Gomez MD Procedure: Flexible Sigmoidoscopy Indications: Hematochezia Providers: Cosmo Gomez MD (Doctor), Sarah Sapp (Nurse), Omid Brooke, Senior Java Architect (Senior Java Architect), Jesus Senior (Fellow) Referring Physician: Cosmo Gomez MD Medications: Monitored Anesthesia Care Complications: No immediate complications. Procedure: Pre-Anesthesia Assessment: - Prior to the procedure, a History and Physical was performed, and patient medications and allergies were reviewed. The patient's tolerance of previous anesthesia was also reviewed. The risks and benefits of the procedure and the sedation options and risks were discussed with the patient. All questions were answered, and informed consent was obtained. Prior Anticoagulants: The patient has taken heparin. ASA Grade Assessment: IV - A patient with severe systemic disease that is a constant threat to life. After reviewing the risks and benefits, the patient was deemed in satisfactory condition to undergo the procedure. After obtaining informed consent, the endoscope was passed under direct vision. Throughout the procedure, the patient's blood pressure, pulse, and oxygen saturations were monitored continuously. The Endoscope was introduced through the anus and advanced to the left transverse colon. The flexible sigmoidoscopy was accomplished without difficulty. The patient tolerated the procedure well. The quality of the bowel preparation was good. Findings: - Fresh blood with clot on KELLY - There fresh and old blood throughout the colon up to the extent of exam (mid transverse colon) - after extension irrigation and inspection, there was an area of arterial oozing without obvious underlying lesion, representing likely dieulafoy lesion - This single angiodysplastic lesion with bleeding was found in the sigmoid colon at around 30 cm. Area was successfully injected with 5 mL of a 1:10,000 solution of epinephrine for hemostasis. Coagulation for hemostasis using bipolar probe was successful. For additional hemostasis, two hemostatic clips were successfully placed. There was no bleeding at the end of the procedure. Few nonbleeding colon ulcers in sigmoid colon seen as well, possibly from prior AVM treatment Impression: - there was old blood throughout the colon up to the extent of exam (mid transverse colon) - after extension irrigation and inspection, there was an area of arterial oozing without obvious underlying lesion, representing likely dieulafoy lesion - A single bleeding colonic angiodysplastic lesion. Injected. Treated with bipolar cautery. Clips were placed. - Few nonbleeding colon ulcers in sigmoid colon seen as well, possibly from prior AVM treatment - No specimens collected. Estimated Blood Loss: Estimated blood loss was minimal. Recommendation: - Patient has a contact number available for emergencies. The signs and symptoms of potential delayed complications were discussed with the patient. Return to normal activities tomorrow. Written discharge instructions were provided to the patient. - clear liquid diet - continue antibiotics for SBP ppx - ok to stop IV PPI and octreotide drip - hold heparin for 24 hours and would be ok to restart if no further bleeding - trend CBC Scope In: 11:00:15 PM Scope Out: 11:57:55 PM Total Procedure Duration Time 0 hours 57 minutes 40 seconds Procedure Code(s): --- Professional --- 94168, Sigmoidoscopy, flexible; with control of bleeding, any method Diagnosis Code(s): --- Professional --- K55.21, Angiodysplasia of colon with hemorrhage K92.1, Melena (includes Hematochezia) CPT copyright 2020 [employer]. All rights reserved. The codes documented in this report are preliminary and upon notch machine operator review may be revised to meet current compliance requirements. Attending Participation: I personally performed the entire procedure. I was present and participated during the entire procedure, including non-turpin portions. MD Cosmo Emmanuel MD 10/23/2020 3:34:56 PM The attending physician has electronically signed and finalized this document. Jesus Senior, Number of Addenda: 0 Note Initiated On: 10/21/2020 9:34 PM Specimen Performing Organization Address City/State/ZIP Code P shane Number [facility] OTHER RESULTS * PREPARE PLASMA (FFP) (10/21/2020 12:38 PM CDT) Units Ordered 1 [facility] MAIN [facility] Unit Number [id number] [facility]IN [facility] Blood Component THAWED PLASMA [facility]IN [facility] Type Unit Division 00 [facility]IN [facility] Status OF Unit TRANSFUSED [facility] MAIN LAB ISSUE DATE TIME [id number] MAIN LAB PRODUCT CODE [id number] MAIN LAB BLOOD TYPE O POS [facility] MAIN [facility] CODING STATUS 5100 [facility] MAIN LAB BLOOD [id number] [facility]IN [facility] EXPIRATION DATE Transfusion OK TO TRANSFUSE [facility]IN [facility] Status Specimen Other (Specify) Performing Organization Address City/State/ZIP Code P shane Number MAIN LAB [address] [place] [address] * 2D + DOPPLER ECHO (10/21/2020 9:56 AM CDT) LVOT diameter 1.94 cm OTHER OUTSIDE LAB IVS 1.21 0.6 - 0.9 cm OTHER OUTSIDE LAB LVIDD 4.46 3.8 - 5.2 cm OTHER OUTSIDE LAB LVIDS 3.00 2.2 - 3.5 cm OTHER OUTSIDE LAB PW 1.16 0.6 - 0.9 cm OTHER OUTSIDE LAB Left Ventricle 153.00 46 - 106 mL OTHER OUTSIDE Diastolic LAB Volume Left Ventricle 93 29 - 61 mL OTHER OUTSIDE Diastolic LAB Volume Index Left Ventricle 89.00 14 - 42 mL OTHER OUTSIDE Systolic Volume LAB Left Ventricle 54 8 - 24 mL OTHER OUTSIDE Systolic Volume LAB Index LVOT peak fred 1.29 m/s OTHER OUTSIDE LAB LVOT peak VTI 26.53 cm OTHER OUTSIDE LAB TDI lateral e' 0.17 m/s OTHER OUTSIDE LAB Right 4.67 1.9 - 3.5 cm OTHER OUTSIDE Ventricular Mid LAB Diameter LA size 5.96 2.7 - 3.8 cm OTHER OUTSIDE LAB LA volume 113.74 22 - 52 mL OTHER OUTSIDE LAB Right Atrial 27.23 <18 cm2 OTHER OUTSIDE Area LAB Right Atrial 6.01 2.2 - 2.8 cm OTHER OUTSIDE Major Dimension LAB , with a mean 14.06 mmHg OTHER OUTSIDE gradient of LAB AV peak 2.60 m/s OTHER OUTSIDE velocity LAB Ao VTI 42.64 cm OTHER OUTSIDE LAB Mr max fred 4.56 m/s OTHER OUTSIDE LAB MV Peak E Fred 1.59 m/s OTHER OUTSIDE PW LAB Right 5.45 2.5 - 4.1 cm OTHER OUTSIDE Ventricular LAB Basal Diameter Right Heart 0.10 m/s OTHER OUTSIDE Systolic TDI S' LAB Right Heart 2.06 >1.7 cm OTHER OUTSIDE Systolic Mmode LAB TAPSE Sinus 2.38 2.4 - 3.6 cm OTHER OUTSIDE LAB Ascending aorta 3.27 cm OTHER OUTSIDE LAB BSA 1.64 m2 OTHER OUTSIDE LAB FS 32.74 28 - 44 % OTHER OUTSIDE LAB EF 55.65 % OTHER OUTSIDE LAB LV mass 192 67 - 162 g OTHER OUTSIDE LAB RWT 0.52 <=0.42 OTHER OUTSIDE LAB Aortic valve 1.84 cm2 OTHER OUTSIDE area = LAB AV index 0.50 OTHER OUTSIDE (redding) LAB LVOT area 2.96 cm2 OTHER OUTSIDE LAB LVOT stroke 78.42 cm3 OTHER OUTSIDE volume LAB TV rest 79 mmHg OTHER OUTSIDE pulmonary LAB artery pressure Lateral E/E' 9.35 OTHER OUTSIDE ratio LAB Left Atrium 69.35 16 - 34 OTHER OUTSIDE Index LAB Left Ventricle 117 43 - 95 g/m2 OTHER OUTSIDE Mass Index LAB ECHO EF 60 % OTHER OUTSIDE LAB TR PEAK 4 m/s OTHER OUTSIDE VELOCITY LAB RV SYSTOLIC 64 OTHER OUTSIDE PRESSURE LAB RA PRESSURE 15 OTHER OUTSIDE LAB and a peak 29 mmHg OTHER OUTSIDE gradient of LAB TDI Medial e' 0.088 m/s OTHER OUTSIDE LAB Medial E/E' 18.07 OTHER OUTSIDE ratio LAB Cardiology Siemens [id number] OTHER OUTSIDE Ultrasound LAB Machine Specimen Narrative Performed At OTHER OUTSIDE LAB Technically difficult study. Echo contr ast was given to enhance endocardial definition. 1. Normal left ventricular size. Mild concentric hypertrophy. Normal systolic function. Estimated EF ~60%. Abnormal septal wall motion consistent with prior cardiac surgery. 2. The right ventricle is moderately di lated. Systolic function is preserved. Flattening of the interven tricular septum suggestive of right ventricular pressure/volume overload. 3. Severe biatrial dilatation. 4. There is reported mechanical prosthe sis in the aortic position. Normal valve function. Peak velocity 2.6 m/s . Mean gradient 14 mmHg. DVI 0.50. Trivial regurgitation. 5. Mild calcification of the posterior mitral valve annulus. No stenosis. Mean gradient 4-5 mmHg at a heart rate of 92 bpm. Mild regurgitation. 6. Torrential tricuspid valve regurgita tion. 7. No significant pericardial effusion. 8. Estimated pulmonary artery systolic pressure 79 mmHg. 9. Markedly elevated central venous pre ssure. Comparison is made with a prior transth oracic echocardiogram performed 05/22/2020. There has been interval inc rease in estimated pulmonary artery systolic pressure. Previously 64 mmHg . Otherwise, no significant changes have occurred. Performing Organization Address City/[facility] Code P shane Number OTHER OUTSIDE LAB * TROPONIN-I (10/21/2020 9:50 AM CDT) Only the most recent of 3 results within the time period is included. Troponin-I 0.04 0.0 - 0.05 NG/ML MAIN LAB Specimen Blood Performing Organization Address City/[facility] P shane Number MAIN LAB [address] [place] [address] * PHOSPHORUS (10/20/2020 5:12 PM CDT) Phosphorus 3.3 2.0 - 4.5 MG/DL [facility] MAIN LAB Specimen Blood Performing Organization Address City/[facility] P shane Number KU MAIN LAB [address] [place] [address] * POC GLUCOSE (10/20/2020 5:11 PM CDT) Glucose, POC 152 (H) 70 - 100 MG/DL [facility] MAIN LAB Specimen Performing Organization Address City/[facility] P shane Number K[facility] MAIN LAB [address] [place] [address] * BASIC METABOLIC PANEL (10/20/2020 3:29 PM CDT) Only the most recent of 3 results within the time period is included. Pathologist [facility] Sodium 132 (L) 137 - 147 MMOL/L [facility] Potassium 3.6 3.5 - 5.1 MMOL/L [facility] Chloride 99 98 - 110 MMOL/L [facility] CO2 24 21 - 30 MMOL/L [facility] MAIN LAB Anion Gap 9 3 - 12 [facility] Glucose 118 (H) 70 - 100 MG/DL [facility] Blood Urea 40 (H) 7 - 25 MG/DL [facility] Nitrogen Creatinine 1.28 (H) 0.4 - 1.00 MG/DL [facility] Calcium 7.7 (L) 8.5 - 10.6 MG/DL [facility] eGFR Non 43 (L) >60 mL/min [facility] Comment: [place] The eGFR is not validated f or use in drug dosing adjustments. Continue to use estimated creatinine clearance per dosing reference text. Please contact the Clinical Pharmacist for questions. eGFR 52 (L) >60 mL/min [facility] [employer] Comment: The eGFR is not validated for use in drug dosing adjustments. Continue to use estimated creatinine clearance per dosing reference text. Please contact the Clinical Pharmacist for questions. Specimen Blood Performing Organization Address City/State/ZIP Code P shane Number [facility] [address] [place] [address] * COVID-19 (SARS-COV-2) PCR (10/20/2020 12:53 PM CDT) Only the most recent of 2 results within the time period is included. Pathologist [facility] COVID-19 FLOCKED SWAB [facility] (SARS-CoV-2) NASOPHARYNGEAL PCR Source COVID-19 NOT DETECTED DN-NOT DETECTED [facility] (SARS-CoV-2) Comment: PCR This assay is designed to detect the N2 and E genes of SARS-CoV-2 using nucleic acid amplification. A Not Detected result does not preclude the possibility of SARS-CoV-2 infection since the adequacy of sample collection and/or low viral burden may result in the presence of viral nucleic acids below the analytical sensitivity of this test method. Test results should be used along with other clinical and laboratory data in making the diagnosis. Test parameters have not been validated for screening in asymptomatic patients. This test has not been FDA cleared or approved. This test is authorized for use under the FDA Emergency Use Authorization and performance characteristics have been verified by the [facility] clinical laboratory. Fact sheet for providers: https://www.fda.gov/media/9501 13/download Fact sheet for patients: https://www.fda.gov/media/3478 12/download Specimen Flocked Swab - Nasopharyngeal Performing Organization Address City/State/ZIP Code P shane Number [facility] MAIN LAB [address] [place] [address] * BLOOD TYPE CONFIRMATION - ORDER ONLY IF REQUESTED BY LAB (10/20/2020 11:54 AM CDT) ABO/RH(D) O POS [facility] MAIN LAB Specimen Bowel Contents Performing Organization Address City/[facility]/ZIP Code P shane Number [facility] MAIN LAB [address] [place] [address] * TYPE & CROSSMATCH (10/20/2020 11:33 AM CDT) Units Ordered 7 [facility] MAIN LAB Crossmatch 10/23/2020,2359 [facility] MAIN LAB Expires Record Check 2ND TYPE REQUIRED [facility] MAIN LAB ABO/RH(D) O POS [facility] MAIN LAB Antibody Screen NEG [facility] MAIN LAB Electronic YES [facility] MAIN LAB Crossmatch Unit Number [id number] [facility] MAIN LAB Blood Component RBC,ADSOL,LEUKO REDUCED,1ST [facility] MAIN L AB Type CONT. Unit Division 00 [facility] MAIN LAB Status OF Unit TRANSFUSED [facility] MAIN LAB ISSUE DATE TIME [facility] MAIN LAB PRODUCT CODE [id number] [facility] MAIN LAB BLOOD TYPE O POS [facility] MAIN LAB CODING STATUS 5100 [facility] MAIN LAB BLOOD [id number] [facility] MAIN LAB EXPIRATION DATE Transfusion OK TO TRANSFUSE [facility] MAIN LAB Status Crossmatch COMPATIBLE,ELECTRONIC [facility] MAIN LAB Result Unit Number [id number] [facility] MAIN LAB Blood Component RBC,ADSOL,LEUKO REDUCED [facility] MAIN [facility] Type Unit Division 00 [facility] MAIN LAB Status OF Unit TRANSFUSED [facility] MAIN LAB ISSUE DATE TIME [facility] MAIN LAB PRODUCT CODE [id number] [facility] MAIN LAB BLOOD TYPE O POS [facility] MAIN LAB CODING STATUS 5100 [facility] MAIN LAB BLOOD [id number] [facility] MAIN [facility] EXPIRATION DATE Transfusion OK TO TRANSFUSE [facility] MAIN LAB Status Crossmatch COMPATIBLE,ELECTRONIC [facility] MAIN LAB Result Unit Number [id number] [facility] MAIN LAB Blood Component RBC,ADSOL,LEUKO REDUCED [facility] MAIN [facility] Type Unit Division 00 [facility] MAIN LAB Status OF Unit TRANSFUSED [facility] MAIN LAB ISSUE DATE TIME [facility] MAIN LAB PRODUCT CODE [id number] [facility] MAIN LAB BLOOD TYPE O POS [facility] MAIN LAB CODING STATUS 5100 [facility] MAIN LAB BLOOD [id number] [facility] MAIN [facility] EXPIRATION DATE Transfusion OK TO TRANSFUSE [facility] MAIN LAB Status Crossmatch COMPATIBLE,ELECTRONIC [facility] MAIN LAB Result Unit Number [id number] [facility] MAIN LAB Blood Component RBC,ADSOL,LEUKO REDUCED,2ND [facility] MAIN L AB Type CONT. Unit Division 00 [facility] MAIN LAB Status OF Unit TRANSFUSED [facility] MAIN LAB ISSUE DATE TIME [facility] MAIN LAB PRODUCT CODE [id number] [facility] MAIN LAB BLOOD TYPE O POS [facility] MAIN LAB CODING STATUS 5100 [facility] MAIN LAB BLOOD [id number] [facility] MAIN LAB EXPIRATION DATE Transfusion OK TO TRANSFUSE [facility] MAIN LAB Status Crossmatch COMPATIBLE,ELECTRONIC [facility] MAIN LAB Result Unit Number [id number] [facility] MAIN LAB Blood Component RBC,ADSOL,LEUKO REDUCED [facility] MAIN LAB Type Unit Division 00 [facility] MAIN LAB Status OF Unit TRANSFUSED [facility] MAIN LAB ISSUE DATE TIME [id number] [facility] MAIN LAB PRODUCT CODE [id number] [facility] MAIN LAB BLOOD TYPE O POS [facility] MAIN LAB CODING STATUS 5100 [facility] MAIN LAB BLOOD [id number] [facility] MAIN LAB EXPIRATION DATE Transfusion OK TO TRANSFUSE [facility] MAIN LAB Status Crossmatch COMPATIBLE,ELECTRONIC [facility] MAIN LAB Result Unit Number [id number] [facility] MAIN LAB Blood Component RBC,ADSOL,LEUKO REDUCED [facility] MAIN [facility] Type Unit Division 00 [facility] MAIN LAB Status OF Unit TRANSFUSED [facility] MAIN LAB ISSUE DATE TIME [facility] MAIN LAB PRODUCT CODE [id number] [facility] MAIN LAB BLOOD TYPE O POS [facility] MAIN LAB CODING STATUS 5100 [facility] MAIN LAB BLOOD [id number] [facility] MAIN LAB EXPIRATION DATE Transfusion OK TO TRANSFUSE [facility] MAIN LAB Status Crossmatch COMPATIBLE,ELECTRONIC [facility] MAIN LAB Result Specimen Lung Performing Organization Address City/State/ZIP Code P shane Number [facility] MAIN LAB [address] [place] [address] * POC PT/INR (10/20/2020 9:13 AM CDT) INR POC 2.8 (H) 0.8 - 1.2 [facility] MAIN LAB Specimen Performing Organization Address City/State/ZIP Code P shane Number MAIN LAB [address] [place] [address] * BLUE TOP TUBE (10/20/2020 9:07 AM CDT) Specimen Performing Organization Address City/State/ZIP Code P shane Number LAB RESULTS * TELEMETRY STRIPS-SCAN (10/20/2020 12:00 AM CDT) Narrative Performed At This result has an attachment that is n ot available. Ordered by an unspecified provider. * TELEMETRY STRIPS-SCAN (10/20/2020 12:00 AM CDT) Narrative Performed At This result has an attachment that is n ot available. Ordered by an unspecified provider. * TELEMETRY STRIPS-SCAN (10/20/2020 12:00 AM CDT) Narrative Performed At This result has an attachment that is n ot available. Ordered by an unspecified provider. * TELEMETRY STRIPS-SCAN (10/20/2020 12:00 AM CDT) Narrative Performed At This result has an attachment that is n ot available. Ordered by an unspecified provider. * TELEMETRY STRIPS-SCAN (10/20/2020 12:00 AM CDT) Narrative Performed At This result has an attachment that is n ot available. Ordered by an unspecified provider. * TELEMETRY STRIPS-SCAN (10/20/2020 12:00 AM CDT) Narrative Performed At This result has an attachment that is n ot available. Ordered by an unspecified provider. * TELEMETRY STRIPS-SCAN (10/20/2020 12:00 AM CDT) Narrative Performed At This result has an attachment that is n ot available. Ordered by an unspecified provider. * TELEMETRY STRIPS-SCAN (10/20/2020 12:00 AM CDT) Narrative Performed At This result has an attachment that is n ot available. Ordered by an unspecified provider. * TELEMETRY STRIPS-SCAN (10/20/2020 12:00 AM CDT) Narrative Performed At This result has an attachment that is n ot available. Ordered by an unspecified provider. * TELEMETRY STRIPS-SCAN (10/20/2020 12:00 AM CDT) Narrative Performed At This result has an attachment that is n ot available. Ordered by an unspecified provider. * TELEMETRY STRIPS-SCAN (10/20/2020 12:00 AM CDT) Narrative Performed At This result has an attachment that is n ot available. Ordered by an unspecified provider. * TELEMETRY STRIPS-SCAN (10/20/2020 12:00 AM CDT) Narrative Performed At This result has an attachment that is n ot available. Ordered by an unspecified provider. * TELEMETRY STRIPS-SCAN (10/20/2020 12:00 AM CDT) Narrative Performed At This result has an attachment that is n ot available. Ordered by an unspecified provider. * TELEMETRY STRIPS-SCAN (10/20/2020 12:00 AM CDT) Narrative Performed At This result has an attachment that is n ot available. Ordered by an unspecified provider. * TELEMETRY STRIPS-SCAN (10/20/2020 12:00 AM CDT) Narrative Performed At This result has an attachment that is n ot available. Ordered by an unspecified provider. * TELEMETRY STRIPS-SCAN (10/20/2020 12:00 AM CDT) Narrative Performed At This result has an attachment that is n ot available. Ordered by an unspecified provider. * TELEMETRY STRIPS-SCAN (10/20/2020 12:00 AM CDT) Narrative Performed At This result has an attachment that is n ot available. Ordered by an unspecified provider. * ECG-SCAN (10/20/2020 12:00 AM CDT) Narrative Performed At This result has an attachment that is n ot available. Ordered by an unspecified provider. * ECG-SCAN (10/20/2020 12:00 AM CDT) Narrative Performed At This result has an attachment that is n ot available. Ordered by an unspecified provider. * ECG-SCAN (10/20/2020 12:00 AM CDT) Narrative Performed At This result has an attachment that is n ot available. Ordered by an unspecified provider. * ECG-SCAN (10/20/2020 12:00 AM CDT) Narrative Performed At This result has an attachment that is n ot available. Ordered by an unspecified provider. * BNP (B-TYPE NATRIURETIC PEPTI) (10/12/2020 10:28 AM CDT) B Type 421.0 (H) 0 - 100 PG/ML [facility] MAIN LAB Natriuretic Peptide Specimen Blood Performing Organization Address City/State/ZIP Code P shane Number MAIN LAB [address] [place] [address] * ECG-SCAN (10/12/2020 12:00 AM CDT) Narrative Performed At This result has an attachment that is n ot available. Ordered by an unspecified provider. * OUTSIDE PATHOLOGY CONSULT (09/20/2020 9:42 AM CDT) PATHOLOGY [facility] [email or web address] Department of Pathology and Laboratory Medicine [address] [place] [address] Surgical Pathology Office: [phone] PATHOLOGY CONSULTATION NAME: ZARIA PAULSON SURG PATH #: [id number] MR #: [id number] ALT ID #: LOCATION: [facility] DATE OF PROCEDURE: 09/20/2020 AGE: 60 SEX: F DATE RECEIVED: 09/20/2020 : 1960 TIME RECEIVED: 09:42 PHYSICIAN: ORQUIDEA DOE MD DATE OF REPORT: 09/20/2020 COPY TO: DATE OF PRINTIN09/20/2020 OUTSIDE INSTITUTION: [facility] Department of Pathology [address] [place] [address] ############################## ############################## ############ Final Diagnosis: A. Outside case "[id number]" (Date Collected: 07/14/2016): 2. Liver, biopsy: Central vein and perivenular sinusoidal dilatation consistent with hepatic vascular outflow impairment. 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 Attestation: By this signature, I attest that I have personally formulated the final interpretation expressed in this report and that the above diagnosis is based upon my examination of the slides and/or other material indicated in this report. +++ +++ mr/09/20/2020 ############################## ############################## ############ Material Received: A: Outside Slides, x11 slides, [id number], [facility], Department of Pathology, [address] [place] [address] History: 60-year-old female. Gross Description: A. Received are eleven (11) total outside slides and a report labeled "[id number]". mr/09/20/2020 If immunohistochemical stains and/or in situ hybridization are cited in this report, the performance characteristics were determined by the Department of Pathology and Laboratory Medicine of the [facility] ([facility]) in compliance with CLIA'88 regulations. Some of these tests rely on the use of "analyte specific reagents" and are subject to specific labeling requirements by the FDA. Known positive and negative control tissues demonstrate appropriate staining. Results should be interpreted with caution given the likelihood of false negativity on decalcified specimens. This testing was developed by the Department of Pathology and Laboratory Medicine of the [facility]. It has not been cleared or approved by the FDA. The FDA has determined that such clearance or approval is not necessary. Specimen Performing Organization Address City/State/ZIP Code P shane Number [facility] [address] [place] [place] [address] * PATHOLOGY REPORTS FROM OUTSIDE SCAN (09/20/2020 12:00 AM CDT) Narrative Performed At This result has an attachment that is n ot available. Ordered by an unspecified provider. * ZINC (08/24/2020 9:19 AM CDT) Zinc 0.46 (L) REFERENCE LAB Comment: Reference range: 0.66 to 1.10 Unit: mcg/mL ADDITIONAL INFORMATION This test was developed and its performance characteristics determined by [facility] in a manner consistent with CLIA requirements. This test has not been cleared or approved by the U.S. Food and Drug Administration. [facility], [address] [place] [id number] Specimen Blood Performing Organization Address City/[facility]/ZIP Code P shane Number REFERENCE LAB REFERENCE LAB See results for address. * VITAMIN A (08/24/2020 9:19 AM CDT) [facility] Vitamin A 42.0 REFERENCE LAB Comment: Reference range: 32.5 to 78.0 Unit: mcg/dL ADDITIONAL INFORMATION This test was developed and its performance characteristics determined by [facility] in a manner consistent with CLIA requirements. This test has not been cleared or approved by the U.S. Food and Drug Administration. [facility], [address] [place], [place] [id number] Specimen Blood Performing Organization Address [facility] P shane Number REFERENCE LAB REFERENCE LAB See results for address. * PERIPHERAL SMEAR (08/24/2020 9:19 AM CDT) [facility] Peripheral NORMOCYTIC ANEMIA WITH MAIN LAB Smear ANISOPOIKILOCYTOSIS. ABSOLUTE LYMPHOCYTOPENIA. PLATELETS APPEAR NORMAL IN NUMBER AND MORPHOLOGY. Pathologist INTERPRETED BY CHIKI Cruz AB Signature By the PATH SIGNATURE ABOVE , I attest that I have personally formulated the final interpretation expressed in this report and that the above diagnosis is based upon my examination of the slides and/or other material indicated in this report. Specimen Blood Performing Organization Address [facility] P shane Number MAIN LAB [address] [place] [address] * 25-OH VITAMIN D (D2 + D3) (08/24/2020 9:19 AM CDT) Pathologist [facility] Vitamin 83.9 (H) 30 - 80 NG/ML MAIN LAB D(25-OH)Total Specimen Blood Performing Organization Address [facility] P shane Number MAIN LAB [address] [place] [address] * RETICULOCYTE COUNT (08/24/2020 9:19 AM CDT) [facility] Retic, 2.3 (H) 0.5 - 2.0 % [facility] Uncorrected Retic, 1.6 % [facility] Corrected Retic, Absolute 89.9 30 - 94 K/UL [facility]IN [facility] Specimen Blood Performing Organization Address City/[facility]/ZIP Code P shane Number [facility] [address] [place] [address] * CBC AND DIFF (08/24/2020 9:19 AM CDT) White Blood 5.0 4.5 - 11.0 K/UL [facility] MAIN [facility] Cells RBC 3.85 (L) 4.0 - 5.0 M/UL [facility] Hemoglobin 9.5 (L) 12.0 - 15.0 GM/DL [facility] Hematocrit 29.9 (L) 36 - 45 % [facility] MCV 77.6 (L) 80 - 100 FL [facility] MCH 24.7 (L) 26 - 34 PG [facility] MCHC 31.8 (L) 32.0 - 36.0 G/DL [facility] RDW 21.3 (H) 11 - 15 % [facility] Platelet Count 293 150 - 400 K/UL [facility] MPV 6.7 (L) 7 - 11 FL [facility] Neutrophils 79 (H) 41 - 77 % [facility] Lymphocytes 10 (L) 24 - 44 % [facility] Monocytes 10 4 - 12 % [facility] Eosinophils 0 0 - 5 % [facility] Basophils 1 0 - 2 % [facility] Absolute 4.01 1.8 - 7.0 K/UL [facility] Neutrophil Count Absolute Lymph 0.49 (L) 1.0 - 4.8 K/UL [facility] Count Absolute 0.49 0 - 0.80 K/UL [facility] Monocyte Count Absolute 0.01 0 - 0.45 K/UL [facility] Eosinophil Count Absolute 0.03 0 - 0.20 K/UL [facility] Basophil Count Specimen Blood Performing Organization Address City/State/ZIP Code P shane Number [facility]IN [facility] [address] [place] [address] * HAPTOGLOBIN (08/24/2020 9:19 AM CDT) Haptoglobin <30 16 - 200 MG/DL [facility] Specimen Blood Performing Organization Address City/[facility]/ZIP Code P shane Number [facility] [address] [place] [address] * BILIRUBIN, DIRECT (08/24/2020 9:19 AM CDT) Bilirubin, 0.4 (H) <0.4 MG/DL [facility] Direct Specimen Blood Performing Organization Address City/State/ZIP Code P shane Number [facility] [address] [place] [address] from Last 3 Months Insurance Type Payer Benefit Subscriber ID Effective Phone Address Plan / Dates Group Medicare MEDICARE MEDICARE [id number] 1999- PART A AND Present B [place] [id number] 2020-P [place]ICA[place] [id number] 1 Advance Directives Patient Creative Technologist Explanation Type Date Recorded Advance 10/26/2020 12:00 AM Directive/DPOA Advance 10/20/2020 11:41 AM Directive/DPOA Date Inactivated Comments Code Status Date Activated 10/26/2020 12:53 PM Full Code 10/20/2020 12:21 PM Provider has discussed Code Status No, discussion no t w/Patient or Family? necessary based on Dx 10/20/2020 12:21 PM Full Code 10/20/2020 8:46 AM Provider has discussed Code Status No, discussion no t w/Patient or Family? necessary based on Dx 06/12/2020 11:20 AM Full Code 06/02/2020 12:21 AM Provider has discussed Code Status Yes w/Patient or Family? 06/02/2020 12:21 AM Full Code 06/01/2020 9:02 PM Provider has discussed Code Status No, more discussi on w/Patient or Family? needed
--- OUTSIDE RECORDS SUMMARY | 2020-11-04 12:22 | XMS REPORT | Encounter Summary ---
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 Role Phone Self, Garfield OLVERA PCP Riley Hopson MD 3 Reason for Visit * Auth/Cert Referred By Contact Referred To Contact Status Reason Specialty Diagnoses / Procedures Diagnoses Chronic heart failure with preserved ejection fraction (HCC) Procedures SD UNLISTED CARDIOVASCULAR SERVICE/PROCEDURE CATHETERIZATION RIGHT HEART WITH INSERTION PULMONARY ARTERY SENSOR Encounter Details Care Team Description Date Type Department Riley Caraballo MD [address] [place] [address] [phone] Christal Perez MD [address] [address] [phone] 10/21/2020 Anesthesia Endoscopy: Main Cam pus, Event [facility] [address] [facility], [address] [place] [address] Anesthesia Record Responsible Anesthesiologist Anesthesia Start Time Anesthesi a Stop Time Procedure Name Riley Caraballo MD 10/21/20223210/22/2010 ESOPHAGOGASTRODUODENOSCOP Y WITH SPECIMEN COLLECTION BY BRUSHING/ WASHING (N/A ) Date Time Event Comment 2027 AN Equip Check 2231 Out of Pre Procedure 223 In Room 2232 Anes Start 2232 An Start Data 2237 An Induction The patient was ree valuated immediately before moderate or deep sedation use and before anesthesia induction. 224 An Intubation 2241 Anesthesia Ready 2247 Proc Start 1 An Extubation 2021 0002 an stop data 0011 Handoff to RN I completed my SBAR handoff to the receiving nurse. 0011 An Stop Meds Name Total midazolam (VERSED) 1 mg/mL injection 10 mg fentaNYL PF (SUBLIMAZE) injection 25 mcg succinylcholine (ANECTINE) injection 100 mg (VIAL) rocuronium (ZEMURON) injection 30 mg ondansetron (ZOFRAN) injection 4 mg dexamethasone (DECADRON) 4 mg/mL 4 mg injection phenylephrine (ERASTO-SYNEPHRINE) 0.1 mg/mL 100 mcg injection syr sugammadex (BRIDION) 100 mg/mL iv soln 130 mg artificial tears (GENTEAL TEARS; BION 2 drop TEARS) single dose solution phenylephrine (ERASTO-SYNEPHRINE) 10 mg in 1.94 mg sodium chloride 0.9% (NS) 250 mL IV dri p (std conc) amiodarone (CORDARONE) 360 mg in 0 mg dextrose, iso-osm 200 mL infusion octreotide (SandoSTATIN) 500 mcg in 0 mcg sodium chloride 0.9% (NS) 100 mL IV dri p (std conc) electrolyte-A (PLASMA-LYTE) 500 mL albumin 5% (250mL) 100 mL * Name O2 N2O Inspired N2O Sevoflurane Inspired Sevoflurane * No blood administrations on file. Removal Type Details Placement 10/26/20 0825 by Shalonda Santizo RN Peripheral 10/20/20; 0941; RN; L; Antecubital; 20 10/20/20 0941 by BIENVENIDO Dennison G; No; 1; 10/26/20; 0825 CHRYSTAL Rausch 10/26/20 1013 by Shalonda Santizo RN Peripheral 10/20/20; 1047; RN; R; Inner; Forearm; 10/20/20 1047 by BIENVENIDO Dennison 20 G; 10/26/20; 1013 CHRYSTAL Rausch 10/24/20 1106 by Nupur Adams RN Indwelling 10/20/20; 1751; Unit (Comment); Regular 10/20/20 1751 by Juma Urinary (Two-way); 10/24/20; 1106 CHRYSTAL Rausch Catheter 10/26/20 0825 by Shalonda Santizo RN Peripheral 10/20/20; 1855; RN; L; Inner; Forearm; 10/20/20 1855 by IV 22 G; No; 2; 10/26/20; 0825 Hortencia Read RN 10/22/20 0002 by Lindsey Petty SRNA ETT 10/21/20; 2240; Mask ventilation not 0 10/21/202240 by Malinda, attempted (0); Direct laryngoscopy, BOB Portillo Stylet, Rapid sequence; Cuffed, Single-Lumen; ETT Size: 7mm; Mac; Blade Size: 3; Cricoid Pressure: Yes; Oral; 1-Full view of the glottis; 1 insertion attempt; ETCO2 Detector; Vol of Air in Cuff: 10 mL; Taped at Gums: 21 centimeters; Intubated by resident; dentition and oral mucosa unchanged; 10/22/20; 0002 documented in this encounter Social History Date Tobacco Use Types Packs/Day Years Used Never Smoker Smokeless Tobacco: Never Used Comments Alcohol Use Standard Drinks/Week Not Currently 0 (1 standard drink = 0.6 o z pure alcohol) Sex Assigned at Date Recorded 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 documented as of this encounter Functional Status Date of Assessment Functional Status Response 10/12/2020 Does the patient have a hearing impairment: [...] impairment: No documented as of this encounter OR Notes * Anesthesia Postprocedure Evaluation - Catie Mane MD - 10/22/2020 1:50 AM CDT Post-Anesthesia Evaluation Name: Zaria Paulson : 1960 Age: 60 y.o. Sex: female Procedure Information Anesthesia Start Date/Time: 10/21/202232 Procedures: ESOPHAGOGASTRODUODENOSCOPY WITH SPECIMEN COLLECTION BY BRUSHING/ WASHING (N/ A ) SIGMOIDOSCOPY WITH CONTROL OF BLEEDING - FLEXIBLE (N/A ) SIGMOIDOSCOPY WITH DIRECTED SUBMUCOSAL INJECTION - FLEXIBLE Location: GI VIRTUAL ROOM / ENDO/GI Surgeons: Cosmo Gomez MD Post-Anesthesia Vitals BP: 112/64 (10/22 114) Pulse: 108 (10/22 114) Respirations: 20 PER MINUTE (10/22 114) SpO2: 97 % (10/22 114) SpO2 Pulse: 102 (10/22 114) Vitals Value Taken Time BP 112/64 10/22/20 0115 Temp 36.5 C (97.7 F) 10/22/20 0011 Pulse 108 10/22/20 0115 Respirations 20 PER MINUTE 10/22/20 0115 SpO2 97 % 10/22/20 0115 Post Anesthesia Evaluation Note Evaluation location: Pre/Post Patient participation: recovered; patient participated in evaluation Level of consciousness: sleepy but conscious Pain score: 1 Pain management: adequate Hydration: normovolemia Temperature: 36.0C - 38.4C Airway patency: adequate Perioperative Events Post-op nausea and vomiting: no PONV Postoperative Status Cardiovascular status: hemodynamically stable Respiratory status: spontaneous ventilation and supplemental oxygen Follow-up needed: none Perioperative Events Perioperative Event: No Emergency Case Activation: No Associated attestation - Riley Caraballo MD - 10/22/2020 6:52 AM CDT Post-Anesthesia Evaluation Attestation: I reviewed and agree the indicated post- anesthesia care was provided. I have reviewed turpin portions of the indicated post anesthesia care. I have examined the patient's vitals, physical status, and com plications and agree with what is documented. Staff name: Riley Caraballo MD Date: 10/22/2020 * Anesthesia Preprocedure Evaluation - Catie Mane MD - 10/21/2020 5:28 PM CDT Anesthesia Pre-Procedure Evaluation Name: Zaria Paulson : 1960 Age: 60 y.o. Sex: female Procedure Info: ESOPHAGOGASTRODUODENOSCOPY WITH CONTROL OF BLEEDING - FLEXIBLE (N/A ) SIGMOIDOSCOPY WITH CONTROL OF BLEEDING - FLEXIBLE (N/A ) Physical Assessment Vital Signs (last filed in past 24 hours): BP: 106/66 (10/21 1810) Temp: 36.7 C (98.1 F) (10/21 1810) Pulse: 104 (10/21 1757) Respirations: 26 PER MINUTE (10/21 1757) SpO2: 100 % (10/21 1757) Height: 157.5 cm (62.01") (10/22 955) Weight: 61.7 kg (136 lb 0.4 oz) (10/22 955) Patient History No Known Allergies Current Medications Medication Directions ascorbic acid (VITAMIN C) 500 mg tablet Take 500 mg by mouth daily. bumetanide (BUMEX) 2 mg tablet Take 2.5 tablets by mouth twice daily. calcium carbonate (OS-KRUPA) 1250 mg tablet Take 1,250 mg by mouth daily. enoxaparin (LOVENOX) 60 mg syringe Inject 0.6 mL under the skin every 12 hours f or 10 days. ergocalciferol (VITAMIN D-2) 1,250 mcg (50,000 unit) capsule Take 1 capsule by m outh every 7 days. FERROUS GLUCONATE PO Take 37.5 mg by mouth every 48 hours. fluticasone propionate (FLONASE) 50 mcg/actuation nasal spray, suspension Apply to each nostril as directed daily. Shake bottle gently before using. levothyroxine (SYNTHROID) 75 mcg tablet Take 75 mcg by mouth daily 30 minutes be fore breakfast. metOLazone (ZAROXOLYN) 2.5 mg tablet Take one tablet by mouth twice weekly. Take on Friday and Friday. When directed, take 30-60 minutes prior to your Bum ex. metoprolol tartrate (LOPRESSOR) 25 mg tablet Take one-half tablet by mouth twice daily. ondansetron (ZOFRAN) 4 mg tablet Take 4 mg by mouth every 8 hours as needed for Nausea or Vomiting. pantoprazole DR (PROTONIX) 40 mg tablet Take one tablet by mouth daily. Indicati ons: indigestion, gastroesophageal reflux disease, heartburn, bleeding from stom ach, esophagus or duodenum potassium chloride SR (K-DUR) 20 mEq tablet Take 20 mEq by mouth twice daily. Ta ke with a meal and a full glass of water. promethazine (PHENERGAN) 25 mg tablet Take 25 mg by mouth as Needed for Nausea o r Vomiting. sertraline (ZOLOFT) 100 mg tablet Take 100 mg by mouth daily. spironolactone (ALDACTONE) 100 mg tablet Take one tablet by mouth daily for 360 days. Take with food. VASCEPA 1 gram capsule TAKE 2 CAPSULES BY MOUTH TWICE DAILY WITH MEALS warfarin (COUMADIN) 2.5 mg tablet Take one tablet by mouth daily. Take as direct ed by physician managing INR. Patient taking differently: Take 5 mg by mouth daily. Take as directed by physic mg managing INR. Review of Systems/Medical History Patient summary reviewed Nursing notes reviewed Pertinent labs reviewed PONV Screening: Female gender, Non-smoker and Postoperative opioids No history of anesthetic complications No family history of anesthetic complications Pulmonary Shortness of breath Admitted with worsening SOB. Pulmonary HTN. PASP worse on TTE 10/21/20 compared to previous in 05/2020 Cardiovascular Recent diagnostic studies: echocardiogram Exercise tolerance: <4 METS No pacemaker Hypertension, Valvular problems/murmurs (s/p mechanical AV replacement on Warfarin. Pt n ot sure what original valvular lesion was.. had surgery at age 14. "torrential t ricuspid regurgitation") No coronary artery bypass graft No PTCA Dysrhythmias (recent rapid response activations for afib with RVR, started o n amio infusion); atrial fibrillation Angina No DVT CHF (Pt has pulmonary HTN based on echo. Suspected pulm pressures of 79 mmHg ) Dyspnea on exertion (worse with anemia) GI/Hepatic/Renal Liver disease Cirrhosis Renal disease (LEONORA) Nausea Vomiting Hematochezia on admission. Neuro/Psych - negative No seizures No hx TIA No CVA Musculoskeletal - negative No neck pain Endocrine/Other No diabetes Hypothyroidism Anemia (actively receiving blood transfusions, 3 pRBCs and 1 FFP this admiss ion. Most recent Hgb 6.6 07/ AM) Constitution - negative Physical Exam Airway Findings Mallampati: II TM distance: >3 FB Neck ROM: full Mouth opening: good Airway patency: adequate Dental Findings: Negative Cardiovascular Findings: Rhythm: regular Rate: normal Other findings: murmur Pulmonary Findings: Breath sounds clear to auscultation. Abdominal Findings: Negative Neurological Findings: Alert and oriented x 3 Constitutional findings: No acute distress Diagnostic Tests Hematology: Lab Results Component Value Date HGB 6.6 10/21/2020 HCT 19.0 10/21/2020 PLTCT 173 10/21/2020 WBC 10.3 10/21/2020 NEUT 79 08/24/2020 ANC 4.01 08/24/2020 ALC 0.49 08/24/2020 TINY 10 08/24/2020 AMC 0.49 08/24/2020 EOSA 0 08/24/2020 ABC 0.03 08/24/2020 MCV 90.6 10/21/2020 MCH 31.4 10/21/2020 MCHC 34.6 10/21/2020 MPV 7.8 10/21/2020 RDW 17.9 10/21/2020 General Chemistry: Lab Results Component Value Date NA 135 10/21/2020 K 4.1 10/21/2020 CL 101 10/21/2020 CO2 22 10/21/2020 GAP 12 10/21/2020 BUN 46 10/21/2020 CR 1.72 10/21/2020 GLU 141 10/21/2020 GLU 143 07/28/2020 CA 8.1 10/21/2020 ALBUMIN 3.0 10/21/2020 LACTIC 1.9 10/21/2020 MG 1.8 10/20/2020 TOTBILI 0.8 10/21/2020 PO4 3.3 10/20/2020 Coagulation: Lab Results Component Value Date PTT 34.9 10/20/2020 INR 3.7 10/21/2020 Anesthesia Plan ASA score: 4 Plan: general Induction method: intravenous NPO status: acceptable Informed Consent Anesthetic plan and risks discussed with patient. Use of blood products discussed with patient Blood Consent: consented Plan discussed with: anesthesiologist, EXECUTIVE RECEPTIONIST and resident. Comments: (TTE 10/21/20: 1. Normal left ventricular size. Mild concentric hyper trophy. Normal systolic function. Estimated EF ~60%. Abnormal septal wall brisa on consistent with prior cardiac surgery. 2. The right ventricle is moderately dilated. Systolic function is preserved. Flattening of the interventricular septum suggestive of right ventricular pressu re/volume overload. 3. Severe biatrial dilatation. 4. There is reported mechanical prosthesis in the aortic position. Normal valve function. Peak velocity 2.6 m/s. Mean gradient 14 mmHg. DVI 0.50. Trivial r egurgitation. 5. Mild calcification of the posterior mitral valve annulus. No stenosis. Mean gradient 4-5 mmHg at a heart rate of 92 bpm. Mild regurgitation. 6. Torrential tricuspid valve regurgitation. 7. No significant pericardial effusion. 8. Estimated pulmonary artery systolic pressure 79 mmHg. 9. Markedly elevated central venous pressure. Comparison is made with a prior transthoracic echocardiogram performed 05/22/2020. There has been interval increase in estimated pulmonary artery systolic pressu re. Previously 64 mmHg. Otherwise, no significant changes have occurred.) documented in this encounter Plan of Treatment Not on filedocumented as of this encounter Goals Goal Patient Associated Recent Progress Patient-Stat Aut hor Goal Type Problems ed? [facility] On track (10/23/2020 Yes [place], 1:06 PM CDT) CHRYSTAL Singh documented as of this encounter Visit Diagnoses Not on filedocumented in this encounter Administered Medications Action Date Dose Rate Site Medication Order MAR Action 10/21/2020 11:05 PM CDT albumin 5% infusion (250 mL) Given - New Intravenous, INTRA-PROCEDURE MED(CONT), Bag Starting on 10/21/20 at 2305, Until 10/22/20 at 0011, Anesthesia Intra-op 10/21/2020 10:41 PM CDT 2 drops artificial tears single dose ophthalmic Given solution Both Eyes, INTRA-PROCEDURE MED, Startin g on 10/21/20 at 2241, Until Sun 1 at 0011, Anesthesia Intra-op 10/21/2020 10:45 PM CDT 4 mg dexamethasone (DECADRON) injection Given Intravenous, INTRA-PROCEDURE MED, Starting on 10/21/20 at 2245, Until 10/22/20 at 0011, Anesthesia Intra-op 10/21/2020 10:33 PM CDT electrolyte-A (PLASMA-LYTE A PH 7.4) Given - New injection Bag Intravenous, INTRA-PROCEDURE MED(CONT), Starting on 10/21/20 at 2233, Until 10/22/20 at 0011, Anesthesia Intra-op 10/21/2020 10:51 PM CDT 25 mcg fentaNYL citrate PF (SUBLIMAZE) Given injection Intravenous, INTRA-PROCEDURE MED, Starting on 10/21/20 at 2251, Until 10/22/20 at 0011, Anesthesia Intra-op 10/21/2020 10:38 PM CDT 10 mg midazolam (VERSED) injection Given Intravenous, INTRA-PROCEDURE MED, Starting on 10/21/20 at 2238, Until 10/22/20 at 0011, Anesthesia Intra-op 10/21/2020 11:58 PM CDT 4 mg ondansetron (ZOFRAN) injection Given Intravenous, INTRA-PROCEDURE MED, Starting on 10/21/20 at 2358, Until 10/22/20 at 0015, Anesthesia Intra-op 10/21/2020 11:57 PM CDT 0.1 mcg/kg/min 9.255 mL/hr phenylephrine (ERASTO-SYNEPHRINE) 10 mg in Dose/Rate sodium chloride 0.9% (NS) 250 mL IV drip Change (std conc) 250 mL, Intravenous, INTRA-PROCEDURE MED(CONT), Starting on 10/21/20 at 2300, Until 10/22/20 at 0011, Anesthesia Intra-op 0.2 mcg/kg/min 18.51 mL/hr Dose/Rate Change 10/21/2020 11:53 PM CDT 0.4 mcg/kg/min 37.02 mL/hr Dose/Rate Change 10/21/2020 11:50 PM CDT 0.6 mcg/kg/min 55.53 mL/hr Dose/Rate Change 10/21/2020 11:08 PM CDT 0.4 mcg/kg/min 37.02 mL/hr Dose/Rate Change 10/21/2020 11:02 PM CDT 0.2 mcg/kg/min 18.51 mL/hr Given - New Bag 10/21/2020 11:00 PM CDT 10/21/2020 11:03 PM CDT 100 mcg phenylephrine (ERASTO-SYNEPHRINE) injection Given syringe Intravenous, INTRA-PROCEDURE MED, Starting on 10/21/20 at 2303, Until 10/22/20 at 0011, Anesthesia Intra-op 10/21/2020 10:58 PM CDT 10 mg rocuronium injection Given Intravenous, INTRA-PROCEDURE MED, Starting on 10/21/20 at 2251, Until 10/22/20 at 0011, Anesthesia Intra-op 10 mg Given 10/21/2020 10:51 PM CDT 10 mg Given 10/21/2020 10:48 PM CDT 10/21/2020 10:38 PM CDT 100 mg succinylcholine (ANECTINE) injection Given Intravenous, INTRA-PROCEDURE MED, Starting on 10/21/20 at 2238, Until 10/22/20 at 0011, Anesthesia Intra-op 10/21/2020 11:58 PM CDT 130 mg sugammadex (BRIDION) injection Given Intravenous, INTRA-PROCEDURE MED, Starting on 10/21/20 at 2358, Until 10/22/20 at 0011, Anesthesia Intra-op documented in this encounter Additional Health Concerns Assessment Noted Time A fall risk assessment has been completed for the pat ient 10/21/2020 7:43 PM CDT PHQ-2 Depression Total Score: 0 08/24/2020 7:42 AM CDT documented as of this encounter
--- OUTSIDE RECORDS SUMMARY | 2020-11-04 12:22 | XMS REPORT | Encounter Summary ---
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 [facility] On track (10/23/2020 Yes She[place]on, 1:06 PM CDT) CHRYSTAL Singh documented as of this encounter Visit Diagnoses Not on filedocumented in this encounter Additional Health Concerns Assessment Noted Time A fall risk assessment has been completed for the pat ient 10/20/2020 10:42 PM CDT PHQ-2 Depression Total Score: 0 08/24/2020 7:42 AM CDT documented as of this encounter
--- OUTSIDE RECORDS SUMMARY | 2020-11-04 12:22 | XMS REPORT | Encounter Summary ---
Author Author [facility] Organization [facility] Address Unknown Phone Unavailable Care Team Providers Care Clinical Lab Technologist Name Role Phone Self, Garfield OLVERA PCP Riley Hopson MD 3 Reason for Visit * Auth/Cert Referred By Contact Referred To Contact Status Reason Specialty Diagnoses / Procedures Diagnoses Chronic heart failure with preserved ejection fraction (HCC) Procedures UT UNLISTED CARDIOVASCULAR SERVICE/PROCEDURE CATHETERIZATION RIGHT HEART WITH INSERTION PULMONARY ARTERY SENSOR Encounter Details Care Team Description Date Type Department Cosmo Gomez MD [address] [place], [place] [id number] ESOPHAGOGASTRODUODENOSCOPY WITH SPECIMEN COLLECTION BY BRUSHING/ WASHING 10/21/2020 Surgery Endoscopy: [facility] [address] [place] [address] Surgery Details Trauma Case? Date/Time Status Location OR Service Patient Class Case Class Case Type 10/21/20 Posted [facility] VIRTUAL Anesthesio Inpatient Urge nt - 10:10 PM ROOM logy Life or limb threatenin g if interventi on does not occur within 8 hrs or IP LOS will be prolonged Panel 1 Procedure LRB Anes Op Region Wound Class Com ments ESOPHAGOGASTRODUODENOSCOP N/A Defer to Y WITH SPECIMEN Anesthesia COLLECTION BY BRUSHING/ WASHING SIGMOIDOSCOPY WITH N/A Defer to CONTROL OF BLEEDING - Anesthesia FLEXIBLE SIGMOIDOSCOPY WITH Defer to DIRECTED SUBMUCOSAL Anesthesia INJECTION - FLEXIBLE Panel Surgeon Surgeon Role Service 1 Jesus Senior MD Fellow Gastroenterology 1 Cosmo Gomez MD Primary Anesthesiology Social History Date Tobacco Use Types Packs/Day Years Used Never Smoker Smokeless Tobacco: Never Used Comments Alcohol Use Standard Drinks/Week Not Currently 0 (1 standard drink = 0.6 o z pure alcohol) Sex Assigned at Date Recorded Female 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 documented as of this encounter Last Filed Vital Signs Reading Time Taken Comments Vital Sign 117/71 10/21/2020 10:00 PM CDT Blood Pressure 104 10/21/2020 10:00 PM CDT Pulse 36.5 C (97.7 F) 10/21/2020 9:15 PM CDT Temperature - - Respiratory Rate 98% 10/21/2020 10:00 PM CDT Oxygen Saturation - - Inhaled Oxygen Concentration - - Weight - - Height - - Body Mass Index documented in this encounter Functional Status Date of Assessment [...] impairment: No documented as of this encounter Discharge Summaries * Duyen Arroyo DO - 10/26/2020 10:40 AM CDT Discharge Summary Name: Zaria Paulson Date Of : 1960 Age: 60 years Admit date: 10/20/2020 Discharge date: 10/26/2020 Discharge Attending: Duyen Arroyo Discharge Summary Completed By: Duyen Arroyo DO Service: [facility] 6154 Reason for hospitalization: Chronic heart failure with preserved ejection fraction (HCC) [I50.32] GI bleeding [K92.2] Primary Discharge Diagnosis: GI bleeding Hospital Diagnoses: Hospital Problems Active Problems * (Principal) GI bleeding Chronic heart failure with preserved ejection fraction (HCC) Anemia Severe tricuspid regurgitation Aortic valve prosthesis present Chronic anticoagulation History of endocarditis Iron deficiency anemia Cirrhosis (HCC) Paroxysmal atrial fibrillation (HCC) Stage 3b chronic kidney disease (HCC) LEONORA (acute kidney injury) (HCC) Hypoalbuminemia Significant Past Medical History Cancer (HCC) Comment: Non- hodgkins lymphoma, chemo Disorder of thyroid gland Hypertension Iron deficiency anemia Iron deficiency anemia Allergies Patient has no known allergies. Brief Hospital Course Zaria Paulson is a 60 y.o. female with history of liver cirrhosis, HFpEF, SHANTANU M, S/P mechanical aortic valve on coumadin, atrial fibrillation and previously t reated non-Hodgkin's lymphoma who presented to the hospital for implantation of CardioMEMs but was found to be severely anemia and is now being admitted to the medicine for acute GI bleeding. On 10/21 patient had EGD which was unremarkable, additionally had flex sig which showed arterial oozing around 30 cm in the sigmoid colon that was consistent wit h dieulafoy lesion status post epinephrine injection along with bipolar cautery and 2 hemoclips with resolution of bleeding. Patient overall received 5 units o f packed RBCs and 1 unit of FFP throughout her hospitalization. Throughout her stay patient was also noted to be in A. fib with RVR and a one-point on amiodaro ne infusion which was discontinued. Due to RV failure concerns patient's metopr olol was also discontinued by cardiology team. Overall patient tolerated blood transfusion well from respiratory and cardiac standpoint. Patient was resumed o n her home warfarin and was sent home with Lovenox bridge for 7 days and to [facility] INR on 10/27. Patient is to additionally have a repeat BMP in 1 week and follow -up with heart failure team. I did want to keep patient for another 24 hours however patient was very adamant about going home. Patient knows when to return if she starts developing bleedi ng again. Ultimately patient was discharged in stable condition. Items Needing Follow Up Pending items or areas that need to be addressed at follow up: 1. INR in one day 2. BMP in 1 week 3. F/u with HF team Pending Labs and Follow Up Radiology Pending labs and/or radiology review at this time of discharge are listed below: if this area is blank, there are no items for review. Pending Labs Order Current Status CBC Collected (10/22/20 0314) LACTIC ACID(LACTATE) Collected (10/20/20 1720) BLUE TOP TUBE In process TRANSFUSE PLASMA (FFP) Preliminary result TRANSFUSE RBC'S Preliminary result TRANSFUSE RBC'S Preliminary result Medications Medication List CHANGE how you take these medications bumetanide 1 mg tablet; Commonly known as: BUMEX; Dose: 3 mg; Take three tablets by mouth twice daily.; Quantity: 180 tablet; Refills: 0; What changed: medication strength, how much to take warfarin 5 mg tablet; Commonly known as: COUMADIN; Dose: 5 mg; Take one tablet by mouth daily. Take as directed by physician managing INR.; Quantity: 90 tablet; Refills: 0; What changed: medication strength, how much to take CONTINUE taking these medications ascorbic acid 500 mg tablet; Commonly known as: VITAMIN C; Dose: 500 mg; Refills: 0 calcium carbonate 1250 mg tablet; Commonly known as: OS-KRUPA; Dose: 1,250 mg; Refills: 0 enoxaparin 60 mg syringe; Commonly known as: LOVENOX; Dose: 60 mg; Inject 0.6 mL under the skin every 12 hours.; Quantity: 14 each; Refills: 0 ergocalciferol (vitamin D2) 1,250 mcg (50,000 unit) capsule; Commonly known as: DRISDOL; Dose: 1 capsule; Refills: 0 fluticasone propionate 50 mcg/actuation nasal spray, suspension; Commonly known as: FLONASE; Refills: 0 levothyroxine 75 mcg tablet; Commonly known as: SYNTHROID; Dose: 75 mcg; Refills: 0 metOLazone 2.5 mg tablet; Commonly known as: ZAROXOLYN; Dose: 2.5 mg; Doctor's comments: Dosing update: please don't refill until requested by patient; Take one tablet by mouth twice weekly. Take on Friday and Friday. When directed, take 30-60 minutes prior to your Bumex.; Quantity: 40 tablet; Refills: 1 ondansetron 4 mg tablet; Commonly known as: ZOFRAN; Dose: 4 mg; Refills: [address] 40 mg tablet; Commonly known as: PROTONIX; Dose: 40 mg; Take one tablet by mouth daily. Indications: indigestion, gastroesophageal reflux disease, heartburn, bleeding from stomach, esophagus or duodenum; For: indigestion, gastroesophageal reflux disease, heartburn, bleeding from stomach, esophagus or duodenum; Quantity: 90 tablet; Refills: 0 potassium chloride SR 20 mEq tablet; Commonly known as: K-DUR; Dose: 20 mEq; Refills: 0 promethazine 25 mg tablet; Commonly known as: PHENERGAN; Dose: 25 mg; Refills: 0 sertraline 100 mg tablet; Commonly known as: ZOLOFT; Dose: 100 mg; Refills: 0 VASCEPA 1 gram capsule; Generic drug: icosapent ethyL; Refills: 0 STOP taking these medications metoprolol tartrate 25 mg tablet spironolactone 100 mg tablet; Commonly known as: ALDACTONE Return Appointments and Scheduled Appointments Scheduled appointments: Nov 09, 2020 10:00 AM Hospital Follow Up with [facility] Cardiology: [facility] (CVM Exam) [address] [facility] [address] Nov 15, 2020 2:15 PM (Arrive by 2:00 PM) Procedure with [facility] Laboratory: [facility] (--) [address] [address] Nov 15, 2020 2:30 PM Return Patient with [facility] Cardiology: [facility] (CVM Exam) [address] [address] Dec 19, 2020 12:00 PM Return Patient with Allison Marti MD Transplant: [facility] ([facility] [address] [facility] [address] Consults, Procedures, Diagnostics, Micro, Pathology Consults: Cardiology and Hepatology Surgical Procedures & Dates: None Significant Diagnostic Studies, Micro and Procedures: noted in brief hospital co urse Significant Pathology: noted in brief hospital course Nutrition: Dietitian Documentation Muscle Wasting: Yes Moderate Clavicle, [place] Edema: No Discharge Disposition, Condition Patient Disposition: Home Condition at Discharge: Stable Code Status Code Status History Date Active Date Inactive Code Status Order ID 10/20/2020 [id number] 10/26/2020 1253 Full Code [id number] Vijaya Millard MD Inpatient 10/20/2020 0846 10/20/2020 1221 Full Code [id number] Crissy Gould PA-C I npatient Only showing the last 2 code statuses. Patient Instructions PROTIME INR (PT) Standing Status: Future Standing Exp. Date: 10/26/21 Which provider would you like to CC? SHRUTI NEWBERRY [[id number]] Release to patient Immediate BASIC METABOLIC PANEL Standing Status: Future Standing Exp. Date: 10/26/21 Which provider would you like to CC? SHRUTI NEWBERRY [[id number]] Release to patient Immediate Cardiac Diet Limiting unhealthy fats and cholesterol is the most important step you can take in reducing your risk for cardiovascular disease. Unhealthy fats include satur ated and trans fats. Monitor your sodium and cholesterol intake. Restrict your sodium to 2g (grams) or 2000mg (milligrams) daily, and your cholesterol to 200m g daily. If you have questions regarding your diet at home, you may contact a dietitian magalys t . Report These Signs and Symptoms Please contact your doctor if you have any of the following symptoms: Chest israel n, shortness of breath, lightheadedness, dizziness, near fainting, palpitations, abd pain, back pain, or bleeding. Risk Reduction Plan Cardiac Event Personal Risk Factor Reduction Plan Take this sheet to your physician to show treatment recommendations Zaria Paulson Admission Date: (Not on file) LOS: @LOS@ Blood Pressure Risk Goal: Keep blood pressure below 130/80 Your Numbers: BP Readings from Last 1 Encounters: 10/12/20 : 99/62 Plan: High blood pressure is the single most important risk factor for cardiac e vents because it's the #1 cause of cardiac events. Take medication as prescribe d and monitor your blood pressure. Abnormal lipids (fats in blood) Risk Goal: Total Cholesterol: <200 LDL (bad cholesterol): primary prevention <100 LDL (bad cholesterol): secondary prevention < 70 HDL ("good" cholesterol): >40 for men, >50 for women Triglycerides: <150 Your Numbers: No results found for: CHOL No results found for: LDL No results found for: HDL No results found for: TRIG Plan: Diets high in saturated fat, trans fat and cholesterol can raise blood cho lesterol levels increasing your risk of having a cardiac event. Take medication as prescribed and eat a heart healthy, low sodium diet. Smoking Risk Goals: If you smoke, STOP! Plan: Smoking DOUBLES your risk of having a cardiac event. Quitting can greatly reduce your risk. To register for smoking cessation program call [phone] or visit www.smokefree.gov Diabetes Risk Goal: Non-diabetic: Below 5.7% Goal for diabetic: Less than 7% Your Numbers: No results found for: HGBA1C Plan: If you have diabetes, even if treated, you are at an increased risk of hav ing a cardiac event. Alcohol Use Risk Goal: Alcohol use can lead to a cardiac event. Plan: For men, limit intake to no more than 2 drinks per day. For women, limit intake to no more than one drink per day. Weight Management Risk Goal: Healthy: BMI is 18.5 to 24.9 Overweight: BMI is 25 to 29.9 Obese: BMI is 30 or higher Morbid Obesity: BMI [...] Your Numbers: Your Plan: If you have questions about your diet after you go home, you can call a conchita carmona at [phone] Physical Activity Risk Goal: Patients should have approval by a physician prior to beginning an exercis e program. Plan: Try to get at least 30 minutes of moderate physical activity five days a w [place] point or 20 minutes of vigorous physical activity three days a week with your doct or's approval. To the Neurology and the NeuroSurg Discharge order sets set add a new order in t he education section titled "Risk Reduction Plan", in the comments section add t he following (default select this new order for neuro and neuro surg and ensure this information is added to the AVS). Questions About Your Stay For questions or concerns regarding your hospital stay: - DURING BUSINESS HOURS (8:00 AM - 4:30 PM): Call [phone] and asked to be transferred to your discharge attending physic mg. - AFTER BUSINESS HOURS (4:30 PM - 8:00 AM, on weekends, or holidays): Call [phone] and ask the burn table operator to page the on-call doctor for the discha rge attending physician. Discharging attending physician: NADEGE MAHARAJ [[id number]] Procedure Specific Activity *Resume your normal activity in 2 days. Incision Care *Call if there is an increase in pain, swelling, or redness. *DO NOT soak incision in water. *NO tub baths, hot tubs, or swimming. *You may shower after discharge. Testing Not Required for Covid-19 Questions About Your Stay For questions or concerns regarding your hospital stay, call [phone]. Discharging attending physician: DUYEN ARROYO [[id number]] Appointment Request: Cardiology Heart Failure Please arrange Telehealth f/u with [facility] team. Thanks. Was decompensated heart failure the primary reason for hospitalization? Yes Because you selected Yes a post hospital follow up is required 3-7 days fo llowing discharge. I Acknowledge If an appointment in the HF clinic is unavailable within 7days of discharge, ple ase select permissible alternate departments to conduct heart failure related po hospital follow up: HF Specialist Only (will be scheduled outside of 7 day wi ndow, if unavailable) Expected date of discharge: 10/26/20 Ordering Provider's or Responsible Teams's Pager #? [phone] Additional Orders: Case Management, Supplies, Home Health Home Health/DME None Signed: Duyen Arroyo DO 10/26/2020 cc: Primary Care Physician: Garfield Gray Referring physicians: Nithya Madison, APR* Additional provider(s): Did we miss something? If additional records are needed, please fax a request on office letterhead to [phone]. Please include the patient's name, date of b irth, fax number and type of information needed. Additional request can be made by email at [email or web address]. For general questions of information about electronic records sharing, call [phone]. documented in this encounter Medications at Time of Discharge Start Date End Date Medication Sig Dispensed Refills ascorbic acid (VITAMIN C) Take 500 mg 0 500 mg tablet by mouth daily. 10/26/2020 bumetanide (BUMEX) 1 mg Take three 180 tablet 0 tablet tablets by mouth twice daily. calcium carbonate Take 1,250 mg 0 (OS-KRUPA) 1250 mg tablet by mouth daily. 10/26/2020 enoxaparin (LOVENOX) 60 Inject 0.6 mL 14 each 0 mg syringe under the skin every 12 hours. 05/09/2020 ergocalciferol (VITAMIN Take 1 0 D-2) 1,250 mcg (50,000 capsule by unit) capsule mouth every 7 days. fluticasone propionate Apply to 0 (FLONASE) 50 each nostril mcg/actuation nasal as directed spray, suspension daily. Shake bottle gently before using. levothyroxine (SYNTHROID) Take 75 mcg 0 75 mcg tablet by mouth daily 30 minutes before breakfast. 08/14/2020 metOLazone (ZAROXOLYN) Take one 40 tablet 1 2.5 mg tabletIndications: tablet by Chronic heart failure mouth twice with preserved ejection weekly. Take fraction (HCC) on Friday and Friday. When directed, take 30-60 minutes prior to your Bumex. ondansetron (ZOFRAN) 4 mg Take 4 mg by 0 tablet mouth every 8 hours as needed for Nausea or Vomiting. 06/12/[address] Take one 90 tablet 0 (PROTONIX) 40 mg tablet by tabletIndications: mouth daily. dyspepsia, Indications: gastroesophageal reflux indigestion, disease, heartburn, upper gastroesophag GI bleed eal reflux disease, heartburn, bleeding from stomach, esophagus or duodenum potassium chloride SR Take 20 mEq 0 (K-DUR) 20 mEq tablet by mouth twice daily. Take with a meal and a full glass of water. promethazine (PHENERGAN) Take 25 mg by 0 25 mg tablet mouth as Needed for Nausea or Vomiting. sertraline (ZOLOFT) 100 Take 100 mg 0 mg tablet by mouth daily. 03/22/2020 VASCEPA 1 gram capsule TAKE 2 0 CAPSULES BY MOUTH TWICE DAILY WITH MEALS 10/26/2020 warfarin (COUMADIN) 5 mg Take one 90 tablet 0 tablet tablet by mouth daily. Take as directed by physician managing INR. documented as of this encounter Ordered Prescriptions Start Date End Date Prescription Sig Dispensed Refills 10/26/2020 enoxaparin (LOVENOX) 60 Inject 0.6 mL 14 each 0 mg syringe under the skin every 12 hours. 10/26/2020 warfarin (COUMADIN) 5 mg Take one 90 tablet 0 tablet tablet by mouth daily. Take as directed by physician managing INR. 10/26/2020 bumetanide (BUMEX) 1 mg Take three 180 tablet 0 tablet tablets by mouth twice daily. documented in this encounter Discharge Disposition Code Departure Means Destination Disposition Wheelchair Home or Self Care documented in this encounter Progress Notes * Shalonda Santizo RN - 10/26/2020 10:12 AM CDT Zaria Paulson discharged on 10/26/2020. . Discharge instructions reviewed with patient. Valuables returned: Where Are Valuables Stored?: With , [facility]. Home medications: . Functional assessment at discharge complete: Yes PIV's removed. Pt filled out living will. Medications explained and dc paperwork explained. Pt d/c to discharge lounge * Duyen Arroyo DO - 10/26/2020 9:33 AM CDT Day of Discharge Note Day of discharge progress note for Zaria Paulson Chart data reviewed including medications, consultation notes, lab, vitals, imag ing. Patient was seen and examined with pertinent information listed below. Subjective: Patient states that she continues to do well. She would really want to be discharged today, states that she is leaving regardless. Had one nonbloo dy BM today. States overall she is doing quite well. Exam: Gen: appears comfortable on RA HEENT: AT/NC. No scleral icterus, EOM grossly intact. Ears/nose grossly normal. Moist mucous membranes Cardiovascular: Regular rhythm, rate in the 100s, normal s1s2, holosystolic mech anical murmur Respiratory: Normal respiratory effort, CTAB Gastrointestinal: Non-distended soft abdomen, bowel sounds present, no peritonea l signs Musculoskeletal: Spontaneously moves all extremities Extremities: No edema Skin: Dry Neurological: A&O x3. Grossly non-focal Psychiatry: Mood and affect congruent Discharge plans and pertinent follow up items after discharge: Patient presented with hematochezia requiring multiple blood transfusions. Status post EGD witho ut any source of bleeding. Status post sigmoidoscopy with sigmoid colon dieulaf oy lesion status post epi injection, bipolar cautery and to hemoclips. Patient was also in A. fib with RVR requiring amiodarone infusion. Patient has been doi ng well for multiple days and being discharged in stable conditions. Please ref er to discharge summary for further details. Patient feels comfortable with plans for discharge. All questions were answered . Discharge discussion, including follow up/discharge instructions, occurred wi th patient [id number]. Duyen Arroyo DO 10/26/2020 Discharge Planning: greater than 30 minutes spent in pt dc care today spent coun seling pt, coordinating dc care, placing dc orders and helping complete dc summa ry. * Elizabeth Stafford, CHRYSTAL - 10/26/2020 6:18 AM CDT Heart Failure Nursing Progress Note Admission Date: 10/20/2020 LOS: 6 days Admission Weight: 59.8 kg (131 lb 12.8 oz) Most recent weights (inpatient): Vitals: 10/23/20 1723 10/25/20 0900 10/26/20 0400 Weight: 59.8 kg (131 lb 12.8 oz) 60.1 kg (132 lb 6.4 oz) 60.4 kg (133 lb 3.2 oz) Weight change from previous day: + 1 lb Fluid restriction ordered: 2 L Intake/Output Summary: (Last 24 hours) Intake/Output Summary (Last 24 hours) at 10/26/2020 0618 Last data filed at 10/26/2020 0120 Gross per 24 hour Intake 590 ml Output 775 ml Net -185 ml Is patient incontinent No Anticipated discharge date: 10/26 Discharge goals: feel better Daily Assessment of Patient Stated Goals: Short Term Goal Identified by patient (Short Term=during hospitalization): PO anticoagulant * Shalonda Santizo RN - 10/25/2020 6:32 PM CDT Heart Failure Nursing Progress Note Admission Date: 10/20/2020 LOS: 5 days Admission Weight: 59.8 kg (131 lb 12.8 oz) Most recent weights (inpatient): Vitals: 10/23/20 1723 10/25/20 0900 Weight: 59.8 kg (131 lb 12.8 oz) 60.1 kg (132 lb 6.4 oz) Weight change from previous day:+0.3kg Fluid restriction ordered: 2L Intake/Output Summary: (Last 24 hours) Intake/Output Summary (Last 24 hours) at 10/25/2020 1832 Last data filed at 10/25/2020 1600 Gross per 24 hour Intake 350 ml Output 775 ml Net -425 ml Is patient incontinent No Anticipated discharge date: 10/26 Discharge goals: get good plan of care Daily Assessment of Patient Stated Goals: Short Term Goal Identified by patient (Short Term=during hospitalization): Bridge with heparin * Shruti Newberry PA-C - 10/25/2020 1:16 PM CDT Heart Failure Progress Note NAME:Zaria Paulson :1960 AGE: 60 y.o. ADMISSION DATE: 10/20/2020 DAYS ADMITTED: LOS: 5 days 60F HFpEF 60%/RV failure, severe TR, Cirrhosis, nonischemic cardiomyopathy ([facility] 05/2020 no CAD), Mechanical aortic valve implanted in 2010 on warfarin, Paroxysma l atrial fibrillation and previously treated non-Hodgkin's lymphoma who presente d on 10/20 for scheduled CardioMEMS implant however was found to be severely anem ic and was admitted to medicine service for acute GI bleed. She has received ~ 6 units pRBC and 1 unit of FFP. She was RR on 10/20/20 for A fib RVR. She received IV metoprolol and was loaded w ith amiodarone IV (10/20-10/22). She underwent EGD on 10/21 which revealed normal es ophagus. Flex sig revealed arterial oozing consistent with dieulfoy lesion s/p e pi injection, cautery and hemoclip. Echo on 10/21/2020 revealed EF 60% with abno rmal septal wall motion consistent with prior cardiac surgery. RV was moderatel y dilated with preserved systolic function and flattening of the interventricula r septum suggestive of RV pressure/volume overload. Severe biatrial dilatation. Normal aortic valve function with peak velocity of 2.6 and mean gradient of 14 . Mild calcification of the posterior MV annulus. No stenosis. Mean gradient 4 5 at heart rate of 92 bpm. Mild MR. Torrential TR. No significant pericardial effusion. Estimated PASP 79. Markedly elevated CVP 10-20. Increase in PASP f rom prior. BNP 421, Trop X 3 (-). Severe TR note don 05/22/20. CVP was 10-20 at that time. Torrential TR noted on CVP remains elevated 10-20. Historically she underwent R/LHC on 06/08/2020 which revealed RA 20, RV 44/14, PA P 49/24/32, PCWP 25, TPG 7, PVR 1.3, CO/CI (t ) 5.33/3.18, CO/CI f) 9.24/4.5. An aortic pressure was 82/56 with a mean of 67 at that time. No evidence of significant CAD. Recommendations: Today: 1. Patient is net ~ -3.3L since admit and net -580 ml overnight. Discontinue Bum etanide 2 mg IV BID (done). Start Bumetanide 3 mg po bid starting 10/26/20 (ordere d). [employer] she has been taking Bumetanide 5 mg po bid along with Metolazone 2.5 mg po twice weekly. She did not receive any thiazide diuretics this admit. We discu ssed that she has required way less diuretics here with improvement in cr. Recom mend to discharge home on bumetanide 3 mg po bid and PRN Metolazone 2.5 mg twice weekly for weight gain above 132# . Consider KDUR 20 meq PO bid on discharge. S he will need to take additional KDUR days she takes metolazone. Please check BMP in one week. 2. Follow up with Dr. Bustillo in 1-2 months. At that time she will re-asses s patient and consider referral to valve team in future for Torrential TR if ind icated. For now Dr. Bustillo recommends to follow up in the HF clinic first as outpatient and recover from GI bleed. Decide further work up and referral in the outpatient setting at the follow up appointment. I discussed this with bonnie garcia in detail. 3. Marginal BP. Concerns for RV failure. Metoprolol discontinued this admit. BP remains marginal overnight. somewhat improved this am. No plans to resumed Metop rolol 12.5 mg po bid for now. Re-assess in the outpatient setting. 4. Evaluated by GI team and underwent EGD and flex sig as noted above. Octreoti de infusion has been discontinued. She has received ~6 units of PRBC as well as FFP this admit. Warfarin to be started on 10/24/2020. INR 1.8 on 10/24/20. 5. Recommend Cashier Wrapper consultation to discuss sodium restricted diet as well as hypoalbuminemia 2.8 on 10/24/2020. 6. Iron studies 10/24/2020 with percent sat of 12 and ferritin was 130. Agree wi th IV iron. Ongoin. BMP once a day/BID on diuretic drip. Magnesium level daily. Keep Potassium greater than 4.0 and Magnesium greater than 2.0. 2. 2000mg sodium dietary restriction. 3. Fluid Restriction:1.5 4. Strict I/O. Goal output: net neg 1L/24 hour 5. Daily standing scale weight. Goal Dry Weight: ~129-130# 6. Follow up appointment with a member of the HF team: Primary team is planning discharge in am if Hemoglobin styas stable. Telehealth visit requested with Dr. Bustillo's team for 7 days follow up. She will need close follow up. She has an appointment with Berna Kitchen APRN on 11/15/20. F/u requested with Dr. Ronny doe in 1-2 months as well. The Complexity of medical decision making is high due to the multi-system diseas es present and the complexity/severity and gravity of the patient's underlying c ardiac illnesses and interplay of other issues. Would be happy to see patient again as needed. Please call as needed for questi ons or new developments. Thank you! Discussed with Cardiology attending Dr. Bustillo. Discussed with Dr. Geller with Primary team. Shruti Newberry PA-C Department of Cardiovascular Medicine [facility] Available on Voalte/AMS/Pager [phone] Assessment: Acute on Chronic diastolic HFpEF, EF: 60% NYHA class III, ACC Stage C/predomina ntly RV failure Major Complications or Comorbidities ([facility] [place]): acute/ acute on chronic systolic and /or diastolic heart failure, Torrential TR She presents with signs of euvolemia with bi ventricular failure without signs of low flow state. Intake/Output Summary (Last 24 hours) at 10/25/2020 1338 Last data filed at 10/25/2020 1200 Gross per 24 hour Intake 350 ml Output 775 ml Net -425 ml Admission Weight: 59.8 kg (131 lb 12.8 oz) Most recent weights (inpatient): Vitals: 10/23/20 1723 10/25/20 0900 Weight: 59.8 kg (131 lb 12.8 oz) 60.1 kg (132 lb 6.4 oz) Recommendations: GDMT [employer] Changes BB Lopressor 12.5 mg twice daily -10/23 did not receive PM dose 10/24 Am dose held. BB discontinued due to low BP and concerns for RV failure. ACEI/ARB/ARNI No Ejection Fraction >= 40% SGLT-2 Inhibitor Aldosterone Antagonist spironolactone 100 mg daily on hold with elevated creati nine. Hydralazine/Nitrate No (N/A - patient not Black/) Ivabradine No; Not treated with maximally tolerated dose beta blockers or beta b lockers contraindicated HRMT No (EF>35%) Anticoagulation for mechanical aortic valve Yes- goal 2.5-3.5 10/20: INR 3.2 10/21: INR 3.7- hold warfarin tonight, may need FFP. 10/22: INR 3.1, resume warfarin tonight 10/23: INR 2.8 Cardiac Rehab Evaluation for LVEF <40% Diuretic Therapy Prior to admission dose Bumex 5 mg p.o. BID and metolazone 2.5 mg twice weekly Given on admission Daily Dosing 10/22-10/24 IV Bumex 2 mg BID. 10/25 IV bumex 2 mg X 1 10/26 bumex 3 mg po bid Nonischemic cardiomyopathy: She had a left heart cath on 06/08/2020 that showed n o evidence of significant coronary disease. The right heart cath showed RA 20, R V 44/14, PA 49/24 with a mean of 32, wedge 25, cardiac output was 5.3 with index 3.18 by thermodilution. Paroxysmal atrial fibrillation. Episode of [employer] with RVR on 10/20 at 1715, 5 mg IV metoprolol and 40 mg IV lasix were given with improvement in HR to 100 bpm. Sh e was started on amiodarone drip (10/20-10/22). No PO loading. Mechanical aortic valve: Initial surgery in 1975 at age [age] years old, second srinath rnotomy 1997 when bioprosthetic aortic valve was replaced, third sternotomy in 2 011 with mechanical valve replacement last echocardiogram showed peak velocity 2 .5 with mean gradient 13, peak aortic valve gradient 25 mmHg. Severe tricuspid regurgitation: Echocardiogram on 05/22 showed severe tricuspid re gurgitation with PA pressure 64 mmHg, pasp has increased to 79. Diuresis as abov e. May need to consider outpatient referral to valve team for torrential TR LEONORA on CKD stage III: baseline creatinine 1.3, on admission 1.72. >1.9.>1.79. improving with diuresis. Suspect some component of cardiorenal syndrome Acute GIB/Anemia:: History of angio ectasia on colonoscopy, previous EGD. Admiss ion hgb 5.9, she is receiving 2 units PRBCs. She has been started on octreotide and GI team is planning on EGD with fleixble sigmoidoscopy . 10/23: Hemoglobin has maintained steady at 8.0 today. Liver cirrhosis: Per Dr. Longo's note was felt to be secondary to chemotherapy, has had previous liver biopsy Pulmonary hypertension: Follows with Dr. Rosales, she has had a right heart cath from outside hospital showing PA pressure 50/23, wedge 19, cardiac output was 5. 5 with index 3.2. Non-Hodgkin's lymphoma diagnosed in 2004 underwent chemotherapy follows with hem atology. Restrictive lung disease: FVC 56%/FEV1 60% and DLCO of 66%. Hypokalemia-improved: 10/22: K 3.3 , KDur 20 meq po TID. 10/24: K 4.1 10/25 K 4 Subjective: Felling much improved today. She is emotional with ongoing multipl e issues but hopeful and motivated to get better. No abdominal distention or bl oating which is her typical symptoms when she is fluid overloaded. She states " I don't have fluid because I don't have belly. I don't really keep flui ds in my legs." Review of Systems: Denies chest pain, shortness of breath, lightheadedness, dizziness, near faintin g, palpitations, abd pain, back pain. Denies any bleeding issues. Medical History: Diagnosis Date Cancer (HCC) Non- hodgkins lymphoma, chemo Disorder of thyroid gland Hypertension Iron deficiency anemia 08/03/2020 Iron deficiency anemia 08/03/2020 Surgical History: Procedure Laterality Date AORTIC VALVE REPLACEMENT 05/2009 mechanical ESOPHAGOGASTRODUODENOSCOPY WITH BIOPSY - FLEXIBLE N/A 06/06/2020 Performed by Bao Hernández MD at [facility] COLONOSCOPY DIAGNOSTIC WITH SPECIMEN COLLECTION BY BRUSHING/ WASHING - FLEXI BLE N/A 06/06/2020 Performed by Bao Hernández MD at [facility] ANGIOGRAPHY CORONARY ARTERY WITH RIGHT AND LEFT HEART CATHETERIZATION N/A Performed by Higinio Clarke MD at [facility] [employer] [employer] [facility] POSSIBLE PERCUTANEOUS CORONARY STENT PLACEMENT WITH ANGIOPLASTY N/A Performed by Higinio Clarke MD at [facility] [facility] ESOPHAGOGASTRODUODENOSCOPY WITH SPECIMEN COLLECTION BY BRUSHING/ WASHING N/A 10/21/2020 Performed by Cosmo Gomez MD at [facility] SIGMOIDOSCOPY WITH CONTROL OF BLEEDING - FLEXIBLE N/A 10/21/2020 Performed by Cosmo Gomez MD at [facility] SIGMOIDOSCOPY WITH DIRECTED SUBMUCOSAL INJECTION - FLEXIBLE 10/21/2020 Performed by Cosmo Gomez MD at [facility] Family History Problem Relation Age of Onset COPD Mother Social History Socioeconomic History Marital status: Life Partner Spouse name: Not on file Number of children: 3 Years of education: Not on file Highest education level: Not on file Occupational History Not on file Tobacco Use Smoking status: Never Smoker Smokeless tobacco: Never Used Substance and Sexual Activity Alcohol use: Not Currently Drug use: Never Sexual activity: Not Currently Other Topics Concern Not on file Social History Narrative Not on file Objective: Allergies: No Known Allergies Medications: Scheduled Meds:[START ON 10/26/2020] bumetanide (BUMEX) tablet 3 mg, 3 mg, Oral, B ID(9-17) cefTRIAXone (ROCEPHIN) IVP 1 g, 1 g, Intravenous, Q24H* fluticasone propionate (FLONASE) nasal spray 1 spray, 1 spray, Each Nostril, BID iron sucrose (VENOFER) 300 mg in sodium chloride 0.9% (NS) IVPB, 300 mg, Intrave nous, QDAY levothyroxine (SYNTHROID) tablet 75 mcg, 75 mcg, Oral, QDAY 30 min before breakf ast pantoprazole DR (PROTONIX) tablet 40 mg, 40 mg, Oral, QDAY(21) potassium chloride SR (K-DUR) tablet 20 mEq, 20 mEq, Oral, TID sertraline (ZOLOFT) tablet 100 mg, 100 mg, Oral, QDAY warfarin (COUMADIN) tablet 5 mg, 5 mg, Oral, QHS Continuous Infusions: PRN and Respiratory Meds:acetaminophen Q4H PRN, aluminum/magnesium hydroxide Q4H PRN, diphenhydrAMINE Q4H PRN, docusate QDAY PRN, EPINEPHrine PF Q5 MIN PRN, james atonin QHS PRN, nitroglycerin Q5 MIN PRN, ondansetron Q6H PRN, promethazine Q6H PRN, warfarin, pharmacy to manage Per Pharmacy Medications Prior to Admission Medication Sig Dispense Refill Last Dose ascorbic acid (VITAMIN C) 500 mg tablet Take 500 mg by mouth daily. Past [place] bumetanide (BUMEX) 2 mg tablet Take 2.5 tablets by mouth twice daily. 150 ta blet 3 Past Week calcium carbonate (OS-KRUPA) 1250 mg tablet Take 1,250 mg by mouth daily. Pa Week [] enoxaparin (LOVENOX) 60 mg syringe Inject 0.6 mL under the skin ev [place] 12 hours for 10 days. 20 each 0 10/19/2020 ergocalciferol (VITAMIN D-2) 1,250 mcg (50,000 unit) capsule Take 1 capsule by mouth every 7 days. Past Week fluticasone propionate (FLONASE) 50 mcg/actuation nasal spray, suspension Ap ply to each nostril as directed daily. Shake bottle gently before using. >1 Month levothyroxine (SYNTHROID) 75 mcg tablet Take 75 mcg by mouth daily 30 minute s before breakfast. Past Week metOLazone (ZAROXOLYN) 2.5 mg tablet Take one tablet by mouth twice weekly. Take on Friday and Friday. When directed, take 30-60 minutes prior to your Bumex. 40 tablet 1 Past Week metoprolol tartrate (LOPRESSOR) 25 mg tablet Take one-half tablet by mouth t wice daily. 90 tablet 3 Past Week ondansetron (ZOFRAN) 4 mg tablet Take 4 mg by mouth every 8 hours as needed for Nausea or Vomiting. med not active pantoprazole DR (PROTONIX) 40 mg tablet Take one tablet by mouth daily. Blanquita cations: indigestion, gastroesophageal reflux disease, heartburn, bleeding from stomach, esophagus or duodenum 90 tablet 0 Past Week potassium chloride SR (K-DUR) 20 mEq tablet Take 20 mEq by mouth twice daily . Take with a meal and a full glass of water. Past Week promethazine (PHENERGAN) 25 mg tablet Take 25 mg by mouth as Needed for Naus ea or Vomiting. med not active sertraline (ZOLOFT) 100 mg tablet Take 100 mg by mouth daily. Past Week spironolactone (ALDACTONE) 100 mg tablet Take one tablet by mouth daily for 360 days. Take with food. 90 tablet 3 Past Week VASCEPA 1 gram capsule TAKE 2 CAPSULES BY MOUTH TWICE DAILY WITH MEALS Pas t Week warfarin (COUMADIN) 2.5 mg tablet Take one tablet by mouth daily. Take as di rected by physician managing INR. (Patient taking differently: Take 5 mg by mout h daily. Take as directed by physician managing INR.) 30 tablet 0 Past Week Vital Signs: Last Filed Vital Signs: 24 Hour Range BP: 94/59 (10/25 1099) Temp: 37.1 C (98.7 F) (10/25 830) Pulse: 96 (10/25 1099) Respirations: 18 PER MINUTE (10/25 830) SpO2: 96 % (10/25 1099) SpO2 Pulse: 106 (10/25 1099) BP: (84-101)/(57-66) Temp: [36.6 C (97.8 F)-37.1 C (98.7 F)] Pulse: [96-104] Respirations: [18 PER MINUTE] SpO2: [96 %-100 %] Wt Readings from Last 10 Encounters: 10/25/20 60.1 kg (132 lb 6.4 oz) 10/21/20 61.7 kg (136 lb 0.4 oz) 10/12/20 61.7 kg (136 lb) 09/07/20 61.2 kg (135 lb) 08/24/20 60.6 kg (133 lb 9.6 oz) 08/22/20 59.9 kg (132 lb) 08/03/20 66 kg (145 lb 9.6 oz) 08/01/20 68.2 kg (150 lb 6.4 oz) 07/18/20 66.5 kg (146 lb 9.6 oz) 07/10/20 69.8 kg (153 lb 12.8 oz) Physical Exam: General Appearance: thin, appears stated age, appears fatigued. Skin: bruising on right forehead, right shoulder and right knee.Appears slightly jaundiced. Digits and Nails: no cyanosis or clubbing Eyes: conjunctivae and lids normal, pupils are equal and round Teeth/Gums/Palate: dentition unremarkable, no lesions Lips & Oral Mucosa: no pallor or cyanosis Neck Veins: JVP ~7cm, HJR positive, however, does have torrential TR Chest Inspection: chest is normal in appearance Respiratory Effort: breathing comfortably, no respiratory distress Auscultation/Percussion: lungs CTA Cardiac Rhythm: regular rhythm and tachycardiac rate Cardiac Auscultation: S1, S2 present but clear splitting not heard, no rub, no S 3 gallop, no S4 gallop Murmurs:grade ii/vi systolic murmur at RSB Lower Extremity Edema:nolower extremity edema Peripheral Circulation: distal upper and lower extremities warm Abdominal Exam: soft, non-tender, no masses, bowel sounds normal Orientation: oriented to time, place and person Affect & Mood: appropriate and sustained affect Language and Memory: patient responsive and seems to comprehend information Laboratory Review: CBC w diff Lab Results Component Value Date/Time WBC 5.0 10/25/2020 06:05 AM RBC 2.43 (L) 10/25/2020 06:05 AM HGB 7.9 (L) 10/25/2020 06:05 AM HCT 23.0 (L) 10/25/2020 06:05 AM MCV 94.5 10/25/2020 06:05 AM MCH 32.7 10/25/2020 06:05 AM MCHC 34.6 10/25/2020 06:05 AM RDW 17.0 (H) 10/25/2020 06:05 AM PLTCT 141 (L) 10/25/2020 06:05 AM MPV 7.2 10/25/2020 06:05 AM Lab Results Component Value Date/Time NEUT 79 (H) 08/24/2020 09:19 AM ANC 4.01 08/24/2020 09:19 AM LYMA 10 (L) 08/24/2020 09:19 AM ALC 0.49 (L) 08/24/2020 09:19 AM TINY 10 08/24/2020 09:19 AM AMC 0.49 08/24/2020 09:19 AM EOSA 0 08/24/2020 09:19 AM AEC 0.01 08/24/2020 09:19 AM BASA 1 08/24/2020 09:19 AM ABC 0.03 08/24/2020 09:19 AM Chemistry Lab Results Component Value Date/Time NA 134 (L) 10/25/2020 06:05 AM K 4.0 10/25/2020 06:05 AM CL 99 10/25/2020 06:05 AM CO2 28 10/25/2020 06:05 AM GAP 7 10/25/2020 06:05 AM BUN 21 10/25/2020 06:05 AM CR 0.95 10/25/2020 06:05 AM GLU 89 10/25/2020 06:05 AM GLU 143 (H) 07/28/2020 09:45 AM Lab Results Component Value Date/Time CA 7.8 (L) 10/25/2020 06:05 AM PO4 3.3 10/20/2020 05:12 PM ALBUMIN 2.8 (L) 10/25/2020 06:05 AM TOTPROT 4.8 (L) 10/25/2020 06:05 AM ALKPHOS 57 10/25/2020 06:05 AM AST 21 10/25/2020 06:05 AM ALT 10 10/25/2020 06:05 AM TOTBILI 0.8 10/25/2020 06:05 AM GFR >60 10/25/2020 06:05 AM GFRAA >60 10/25/2020 06:05 AM Renal Function Lab Results Component Value Date/Time NA 134 (L) 10/25/2020 06:05 AM K 4.0 10/25/2020 06:05 AM CL 99 10/25/2020 06:05 AM CO2 28 10/25/2020 06:05 AM GAP 7 10/25/2020 06:05 AM BUN 21 10/25/2020 06:05 AM BUN 34 (H) 10/24/2020 05:47 AM BUN 42 (H) 10/23/2020 12:35 PM Lab Results Component Value Date/Time CR 0.95 10/25/2020 06:05 AM CR 1.47 (H) 10/24/2020 05:47 AM CR 1.79 (H) 10/23/2020 12:35 PM GLU 89 10/25/2020 06:05 AM GLU 143 (H) 07/28/2020 09:45 AM CA 7.8 (L) 10/25/2020 06:05 AM PO4 3.3 10/20/2020 05:12 PM ALBUMIN 2.8 (L) 10/25/2020 06:05 AM Lipid Profile INR No results found for: CHOL, TRIG, HDL, LDL, VLDL, NONHDLCHOL, CHOLHDLC Lab Results Component Value Date INR 1.4 (H) 10/25/2020 Chest X-Ray: none this admit. Tele/ECG: SR 90's. No sustained arrhythmias Echocardiogram Details: Echo Results (Last 3 results in the past 3 years) Echo EF LVIDD LA Size IVS LVPW Rest PAP (10/21/20) 60 (10/21/20) 4.46 (10/21/20) 5.96 (10/21/20) 1.21 (10/21/20) 1.16 (10/21/20) 79 (05/22/20) 60 (05/22/20) 4.31 (05/22/20) 6.56 (05/22/20) 1.21 (05/22/20) 1.30 (05/22/20) 64 * Duyen Arroyo DO - 10/25/2020 9:07 AM CDT General Progress Note Name: Zaria Paulson Today's Date: 10/25/2020 Admission Date: 10/20/2020 LOS: 5 days Assessment/Plan: Principal Problem: GI bleeding Active Problems: Chronic heart failure with preserved ejection fraction (HCC) Anemia Severe tricuspid regurgitation Aortic valve prosthesis present Chronic anticoagulation History of endocarditis Iron deficiency anemia Cirrhosis (HCC) Paroxysmal atrial fibrillation (HCC) Stage 3b chronic kidney disease (HCC) LEONORA (acute kidney injury) (HCC) Hypoalbuminemia Zaria Paulson is a 60 y.o. female with history of liver cirrhosis, HFpEF, SHANTANU M, S/P mechanical aortic valve on coumadin, atrial fibrillation and previously t reated non-Hodgkin's lymphoma who presented to the hospital for implantation of CardioMEMs but was found to be severely anemia and is now being admitted to the medicine for acute GI bleeding. Acute GI bleed Acute blood loss anemia worsening chronic iron deficiency anemia - Given bright red stool with clots, concern for colonic source, possibly anothe r AVM but given drop in Hb and BP, as well as nausea, upper GI source cannot be ruled out. It would be unusual for varices to develop over months, but defer to hepatology. - Hepatology consulted, recs appreciated - Last iron infusion in August 2020. EGD in May 2020 essentially normal. C-scope in May 2020 with angiectasia, treated with argon plasma. - 10/21 s/p EGD with no bleeding, flex sig showed arterial oozing around 30 cm in sigmoid colon that was consistent w/dieulafoy lesion s/epi injection along with bipolar cautery and 2 hemoclips - IV octreotide discontinued 10/21 - IV PPI switched to PO; continue IV rocephin - Transfuse to keep Hb>7 - S/p 5 units transfused thus far, along with FFP - Continues to do well - Will give IV iron x 3 days Chronic HFpEF without acute exacerbation Pulmonary HTN with chronic cor pulmonale Paroxysmal atrial fibrillation with RVR - Originally presented for CardioMEMs implantation, procedure deferred for now - Hold [employer] aldactone, bumex, metolazone, metoprolol due to severe hypotension as sociated with GI bleeding - Monitor closely for resuming as BP allows. BB should be restarted first for moran ppression of atrial tachycardia -10/20 rapid responded due to A. fib with RVR in the setting of hypotension, was given IV push metoprolol and started on amiodarone infusion -10/21 patient continues to go in and out of A. fib with RVR on amiodarone infusi on, beta-gulshan limited due to hypotension - 10/21 heart failure consulted, case discussed and they feel that patient should go to the ICU however after discussion and eval by ICU team, they feel patient can stay on floor - Echo in May 2020 with EF 60% and abnormal septal motion from right ventricle pressure overload. Right ventricle contractility was assumed normal. - Currently doing well from heart failure standpoint - 10/22 discontinued amio infusion - 10/22 started on bumex 2 mg IV BID along with KCL 20 mEq TID - 10/24 metoprolol discontinued by heart failure team, no plans to resume on this admission - 10/25 IV Bumex discontinued, p.o. to start on 10/26 - INR 1.4 today, continue with warfarin with pharmacy to dose Mechanical aortic valve - Open heart surgery at age 16 in 1975 for aortic valve repair. Developed CHF an d underwent bioprosthetic valve placement in 1997. Subsequently had failed biopr osthetic valve and underwent mechanical valve placement in 2010. - On coumadin at home with recent hold for procedure with lovenox bridging. Last dose of lovenox 10/19 PM. - INR on admission 2.8 10/23 - S/p 1 unit of FFP due to continued bleeding on 10/21 - INR 1.4 today, continue with warfarin with pharmacy to dose Liver cirrhosis - Likely from chemotherapy for NHL - Hepatology following - SBP ppx with rocephin CKD Stage III Hypokalemia, resolved - sCr. Near baseline, hypokalemia likely from GI losses - Renal function worsening due to acute blood loss anemia - Continue treating underlying condition - Renal function improving Hyponatremia - Mild - Continue to monitor, likely from underling liver disease vs diuresis Hypokalemia - PO replacement - Continue to monitor NHL - Appears to be in remission IVF: none Nutrition: Cardiac healthy diet VTE prophylaxis: warfarin Code Status: Full code Disposition: Admit to medicine for further evaluation and management of principl e problem. Plan to discharge within the next 24 to 48 hours. Duyen Arroyo, DO Internal Medicine Med Private L Subjective Zaria Paulson is a 60 y.o. female. Patient continues to do well. One BM last night without blood. Eating and drinking well. No complaints. ROS: Denies chest pain and SOB. No abdominal pain. No N/V. No fever or chills. Medications Scheduled Meds:bumetanide (BUMEX) injection 2 mg, 2 mg, Intravenous, BID(12-08) cefTRIAXone (ROCEPHIN) IVP 1 g, 1 g, Intravenous, Q24H* fluticasone propionate (FLONASE) nasal spray 1 spray, 1 spray, Each Nostril, BID iron sucrose (VENOFER) 300 mg in sodium chloride 0.9% (NS) IVPB, 300 mg, Intrave nous, QDAY levothyroxine (SYNTHROID) tablet 75 mcg, 75 mcg, Oral, QDAY 30 min before breakf ast pantoprazole DR (PROTONIX) tablet 40 mg, 40 mg, Oral, QDAY(21) potassium chloride SR (K-DUR) tablet 20 mEq, 20 mEq, Oral, TID sertraline (ZOLOFT) tablet 100 mg, 100 mg, Oral, QDAY warfarin (COUMADIN) tablet 5 mg, 5 mg, Oral, QHS Continuous Infusions: PRN and Respiratory Meds:acetaminophen Q4H PRN, aluminum/magnesium hydroxide Q4H PRN, diphenhydrAMINE Q4H PRN, docusate QDAY PRN, EPINEPHrine PF Q5 MIN PRN, james atonin QHS PRN, nitroglycerin Q5 MIN PRN, ondansetron Q6H PRN, promethazine Q6H PRN, warfarin, pharmacy to manage Per Pharmacy Objective: Vital Signs: Last Filed Vital Signs: 24 Miguel r Range BP: 94/59 (10/25 830) Temp: 37.1 C (98.7 F) (10/25 830) Pulse: 96 (10/25 830) Respirations: 18 PER MINUTE (10/25 830) SpO2: 100 % (10/25 830) SpO2 Pulse: 99 (10/26 399) BP: (84-98)/(52-66) Temp: [36.6 C (97.8 F)-37.1 C (98.7 F)] Pulse: [94-104] Respirations: [18 PER MINUTE] SpO2: [96 %-100 %] Vitals: 10/23/20 1723 Weight: 59.8 kg (131 lb 12.8 oz) Intake/Output Summary: (Last 24 hours) Intake/Output Summary (Last 24 hours) at 10/25/2020 0907 Last data filed at 10/25/2020 0400 Gross per 24 hour Intake 100 ml Output 500 ml Net -400 ml Stool Occurrence: 0 Physical Exam Gen: appears comfortable on RA HEENT: AT/NC. No scleral icterus, EOM grossly intact. Ears/nose grossly normal. Moist mucous membranes Cardiovascular: Regular rhythm, rate in the 100s, normal s1s2, holosystolic mech anical murmur Respiratory: Normal respiratory effort, CTAB Gastrointestinal: Non-distended soft abdomen, bowel sounds present, no peritonea l signs Musculoskeletal: Spontaneously moves all extremities Extremities: No edema Skin: Dry Neurological: A&O x3. Grossly non-focal Psychiatry: Mood and affect congruent Lab Review Pertinent labs reviewed Point of Care Testing (Last 24 hours) Glucose: 89 (10/25/20 0605) Radiology and other Diagnostics Review: Pertinent radiology reviewed., EKG Reviewed Duyen Arroyo DO * Gabriel Dominguez MD - 10/25/2020 7:48 AM CDT Hepatology Consult Note Patient Name:Zaria Paulson Admission Date: 10/20/2020 8:34 AM Principal Problem: GI bleeding Active Problems: Chronic heart failure with preserved ejection fraction (HCC) Anemia Severe tricuspid regurgitation Aortic valve prosthesis present Chronic anticoagulation History of endocarditis Iron deficiency anemia Cirrhosis (HCC) Paroxysmal atrial fibrillation (HCC) Stage 3b chronic kidney disease (HCC) LEONORA (acute kidney injury) (HCC) Hypoalbuminemia History of Present Illness/Subjective: Hgb stable. Pt feeling well today. No melena, brbpr, hematemesis. Assessment/ Plan: Zaria Paulson is a 60 y.o. female with history of HFpEF, mechanical AVR on wa rfarin, pAfib, HTN, JANKI, CKD, hypothyroidism non-Hodgkin's lymphoma, cirrhosis w ith ascites who presented for implantation of CardioMEMs device. Procedure was c ancelled after patient reported ongoing hematochezia. Hepatology is consulted fo r further evaluation. Decompensated Cirrhosis -Etiology uncertain. Patient reports 2/2 chemotherapy; however she does have a l ongstanding cardiac hx with severe TR and pulmonary HTN. Previous liver bx revie wed by [facility] and shows features of outflow obstruction raising concern fo r cardiac cirrhosis. -Decompensated by ascites/volume overload (cardiac?) -Follows with Dr. Marti -Not a transplant candidate due to co-morbidities -MELD elevated due to warfarin use -MELD-Na score: 10 at 10/25/2020 6:05 AM MELD score: 10 at 10/25/2020 6:05 AM Calculated from: Serum Creatinine: 0.95 MG/DL (Rounded to 1 MG/DL) at 10/25/2020 6:05 AM Serum Sodium: 134 MMOL/L at 10/25/2020 6:05 AM Total Bilirubin: 0.8 MG/DL (Rounded to 1 MG/DL) at 10/25/2020 6:05 AM INR(ratio): 1.4 at 10/25/2020 6:05 AM Age: 60 years 9 months Hematochezia Hx of Colonic AVMs Varices screening -Hematochezia x4 days. No pain Chronic nausea without hematemesis or CGE. -Mildly tachycardic 90-100, Systolic BP 85-100. (Appears similar to recent clini c appt where HR 89 and BP 99/62) -Hgb 5.9 at presentation from 11.6 previously -On warfarin at baseline, last 10/14, INR 3.2. Bridging with lovenox, last 10/19 -EGD 06/06/20: Normal esophagus, stomach, duodenum -Colonoscopy 06/06/20: Normal TI, 3mm IC valve polyp (not resected), single angio ectasia in sigmoid treated with APC, sigmoid diverticulosis, external hemorrhoid s. -Differential includes bleeding from angioectasia, diverticular bleed. Less like ly ischemic colitis. With soft BP and tachycardia, brisk upper bleeding is not e xcluded. > 10/21 EGD normal. Flex sig with sigmoid dieulafoy s/p epinephrine, bipolar cautery, hemoclips x 2 with successful hemostasis. Ascites/Volume Status -Appears moderately distended. No peripheral edema. Last imaging in May with m oderate ascites and body wall edema -[employer] Bumex 5 mg BID, Spironolactone 100 mg BID, metolazone twice weekly Hepatic Encephalopathy -No prior history -On exam, A&Ox3, no asterixis HCC Screening -CT w/ contrast 06/01/20 neg for focal hepatic lesions - AFP 1.4 (10/2020) HFpEF S/p AVR Severe Tricuspid regurgitation Pulmonary HTN Recommendations: - No further episodes of GI blood loss. Hgb stable. -Ceftriaxone (or equivalent) for SBP prophylaxis x 7 days total - Diuretics per cardiology - Anticoagulation per primary / cardiology. Initated on warfarin 10/24. Monitor fo r signs of GI blood loss. - Will need outpatient EGD and colonoscopy for evaluation of remaining colon alexandre yps and possible BE - IV iron x 3 days Hepatology will sign off at this time, please call with questions Patient seen/discussed with Dr. Ok Dominguez GI Fellow 1923 PMH: Medical History: Diagnosis Date Cancer (HCC) Non- hodgkins lymphoma, chemo Disorder of thyroid gland Hypertension Iron deficiency anemia 08/03/2020 Iron deficiency anemia 08/03/2020 Current medications: No current facility-administered medications on file prior to encounter. Current Outpatient Medications on File Prior to Encounter Medication Sig Dispense Refill ascorbic acid (VITAMIN C) 500 mg tablet Take 500 mg by mouth daily. bumetanide (BUMEX) 2 mg tablet Take 2.5 tablets by mouth twice daily. 150 ta blet 3 calcium carbonate (OS-KRUPA) 1250 mg tablet Take 1,250 mg by mouth daily. ergocalciferol (VITAMIN D-2) 1,250 mcg (50,000 unit) capsule Take 1 capsule by mouth every 7 days. fluticasone propionate (FLONASE) 50 mcg/actuation nasal spray, suspension Ap ply to each nostril as directed daily. Shake bottle gently before using. levothyroxine (SYNTHROID) 75 mcg tablet Take 75 mcg by mouth daily 30 minute s before breakfast. metOLazone (ZAROXOLYN) 2.5 mg tablet Take one tablet by mouth twice weekly. Take on Friday and Friday. When directed, take 30-60 minutes prior to your Bumex. 40 tablet 1 metoprolol tartrate (LOPRESSOR) 25 mg tablet Take one-half tablet by mouth t wice daily. 90 tablet 3 ondansetron (ZOFRAN) 4 mg tablet Take 4 mg by mouth every 8 hours as needed for Nausea or Vomiting. pantoprazole DR (PROTONIX) 40 mg tablet Take one tablet by mouth daily. Blanquita cations: indigestion, gastroesophageal reflux disease, heartburn, bleeding from stomach, esophagus or duodenum 90 tablet 0 potassium chloride SR (K-DUR) 20 mEq tablet Take 20 mEq by mouth twice daily . Take with a meal and a full glass of water. promethazine (PHENERGAN) 25 mg tablet Take 25 mg by mouth as Needed for Naus ea or Vomiting. sertraline (ZOLOFT) 100 mg tablet Take 100 mg by mouth daily. spironolactone (ALDACTONE) 100 mg tablet Take one tablet by mouth daily for 360 days. Take with food. 90 tablet 3 VASCEPA 1 gram capsule TAKE 2 CAPSULES BY MOUTH TWICE DAILY WITH MEALS warfarin (COUMADIN) 2.5 mg tablet Take one tablet by mouth daily. Take as di rected by physician managing INR. (Patient taking differently: Take 5 mg by mout h daily. Take as directed by physician managing INR.) 30 tablet 0 PSH: Surgical History: Procedure Laterality Date AORTIC VALVE REPLACEMENT 05/2009 mechanical ESOPHAGOGASTRODUODENOSCOPY WITH BIOPSY - FLEXIBLE N/A 06/06/2020 Performed by Bao Hernández MD at [facility] COLONOSCOPY DIAGNOSTIC WITH SPECIMEN COLLECTION BY BRUSHING/ WASHING - FLEXI BLE N/A 06/06/2020 Performed by Bao Hernández MD at [facility] ANGIOGRAPHY CORONARY ARTERY WITH RIGHT AND LEFT HEART CATHETERIZATION N/A Performed by Higinio Clarke MD at [facility] [employer] [facility] POSSIBLE PERCUTANEOUS CORONARY STENT PLACEMENT WITH ANGIOPLASTY N/A Performed by Higinio Clarke MD at [facility] [employer] [facility] ESOPHAGOGASTRODUODENOSCOPY WITH SPECIMEN COLLECTION BY BRUSHING/ WASHING N/A 10/21/2020 Performed by Cosmo Gomez MD at [facility] SIGMOIDOSCOPY WITH CONTROL OF BLEEDING - FLEXIBLE N/A 10/21/2020 Performed by Cosmo Gomez MD at [facility] SIGMOIDOSCOPY WITH DIRECTED SUBMUCOSAL INJECTION - FLEXIBLE 10/21/2020 Performed by Cosmo Gomez MD at [facility] SH: Social History Socioeconomic History Marital status: Life Partner Spouse name: Not on file Number of children: 3 Years of education: Not on file Highest education level: Not on file Occupational History Not on file Tobacco Use Smoking status: Never Smoker Smokeless tobacco: Never Used Substance and Sexual Activity Alcohol use: Not Currently Drug use: Never Sexual activity: Not Currently Other Topics Concern Not on file Social History Narrative Not on file FH: Family History Problem Relation Age of Onset COPD Mother Review of Systems: Constitutional: No fevers, chills, weight loss Eyes: No vision deficit, no icterus Ears, nose, mouth: No oral bleeding, ulcer Cardiovascular: No chest pain, palpitations Respiratory: No dyspnea, cough Gastrointestinal: See HPI Musculoskeltal: No joint inflammation, new deformity Integumentary: No rashes, exudate Neurologic: No cognitive change, focal weakness Hematologic: No for easy bleeding or bruising Please see HPI for additional pertinent documentation Physical Exam: Vitals: 10/24/20 1735 10/24/20 2000 10/25/20 0006 10/25/20 0400 BP: 92/61 90/64 (!) 85/59 (!) 84/59 BP Source: Arm, Right Upper Arm, Right Upper Pulse: 101 104 102 98 Temp: 36.8 C (98.2 F) 36.9 C (98.5 F) 36.6 C (97.8 F) SpO2: 97% 100% 96% 97% Weight: Height: Constitutional- Vitals above, no acute distress. Head - Normocephalic, atraumatic. Eyes - EOMI grossly. No icterus or injection. Ears, nose, mouth, throat- No oral ulcer or bleeding. Neck - No swelling or tracheal deviation. Respiratory - Symmetric chest rise, no increased work of breathing. Cardiovascular - Peripheral pulses intact, no pedal edema. Gastrointestinal- Soft, non-tender, moderately distended. Skin - No exposed rash, lesion. Neurologic - No CN deficit, normal fluid speech Psychiatric - Judgement intact, thought content appropriate. Labs/Imaging: Pertient labs/imaging were reviewed on initiation of progress note. Associated attestation - Rachael Euceda MD - 10/26/2020 3:04 AM CDT ATTESTATION I personally performed the turpin portions of the E/M visit, discussed case with re sident and concur with resident documentation of history, physical exam, assessm ent, and treatment plan unless otherwise noted. Course reviewed. Blood pressure low, but stable. Labs: White count 5 hemoglobin 7.9 platelets 141 INR 1.4 sodium 134 potassium 4 BUN 21 creatinine 0.95 total bilirubin 0.8 AST 21 ALT 10 alkaline phosphatase 57 60 y.o. female with history of HFpEF, mechanical AVR on warfarin, pAfib, HTN, ID A, CKD, hypothyroidism non-Hodgkin's lymphoma, and suspected cirrhosis with asci lilliam who presented for implantation of CardioMEMs device, but developed hematoche norman secondary to colonic Dieulafoy, treated with epinephrine, bipolar, and clips (also found to have 4 nonbleeding colonic ulcers). Okay to continue anticoagul ation with close monitoring by cardiology. She will need CBC one week after dis charge. Ceftriaxone 1 gram x 7 total days. Day 6 today. If any evidence of GI b leeding, please page GI fellow bonding supervisor. Consider future EGD to evaluate for Castellanos's. Will defer to primary hepatologis t regarding timing, but could be done with next colonoscopy. She needs a colono scopy in May 2021 given remaining polyp. Remains hypotensive. Defer to cardiology regarding whether she would benefit fro m dobutamine or trial of midodrine. Recommend IV iron x 3 days. AFP normal. She is due for HCC screening with cross-sectional imaging next month . She has follow up with Dr. Marti next month. Management of heart failure per cardiology. Hepatology will sign off. Please call with questions. Staff name: Rachael Euceda MD Date: 10/25/2020 * Lilly Walton RN - 10/24/2020 7:22 PM CDT I have reviewed the notes, assessments, and/or procedures performed by Nupur Gasca RN, and concur with her/his documentation unless otherwise noted. * Shruti Newberry PA-C - 10/24/2020 1:48 PM CDT Heart Failure Progress Note NAME:Zaria Paulson :1960 AGE: 60 y.o. ADMISSION DATE: 10/20/2020 DAYS ADMITTED: LOS: 4 days 60F HFpEF 60%/RV failure, severe TR, Cirrhosis, nonischemic cardiomyopathy ([facility] 05/2020 no CAD), Mechanical aortic valve implanted in 2010 on warfarin, Paroxysma l atrial fibrillation and previously treated non-Hodgkin's lymphoma who presente d on 10/20 for scheduled CardioMEMS implant however was found to be severely anem ic and was admitted to medicine service for acute GI bleed. She has received ~ 6 units pRBC and 1 unit of FFP. She was RR on 10/20/20 for A fib RVR. She received IV metoprolol and was loaded w ith amiodarone IV (10/20-10/22). She underwent EGD on 10/21 which revealed normal es ophagus. Flex sig revealed arterial oozing consistent with dieulfoy lesion s/p e pi injection, cautery and hemoclip. Echo on 10/21/2020 revealed EF 60% with abno rmal septal wall motion consistent with prior cardiac surgery. RV was moderatel y dilated with preserved systolic function and flattening of the interventricula r septum suggestive of RV pressure/volume overload. Severe biatrial dilatation. Normal aortic valve function with peak velocity of 2.6 and mean gradient of 14. Mild calcification of the posterior MV annulus. No stenosis. Mean gradient 45 at heart rate of 92 bpm. Mild MR. Torrential TR. No significant pericardial effusion. Estimated PASP 79. Markedly elevated CVP 10-20. Increase in PASP f rom prior. BNP 421, Trop X 3 (-). Severe TR note don 05/22/20. CVP was 10-20 at that time. Torrential TR noted on CVP remains elevated 10-20. Historically she underwent R/LHC on 06/08/2020 which revealed RA 20, RV 44/14, PA P 49/24/32, PCWP 25, TPG 7, PVR 1.3, CO/CI (t ) 5.33/3.18, CO/CI f) 9.24/4.5. An aortic pressure was 82/56 with a mean of 67 at that time. No evidence of significant CAD. Recommendations: Today: 1. Patient is net ~ -3L since admit and net -2.5L overnight. Continue bumetanid e 2 mg IV twice daily today. Weight is trending down to baseline. Cr. Is improvi ng. Consider transitioned to [employer] dose to bumetanide 2.5 mg p.o. twice daily in n ext 24-48 hours. 2. Recommend ongoing diuresis for now. Recommend to consider referral to valve t eam in future for Torrential TR. For now Dr. Bustillo recommends to follow u p in the HF clinic first as outpatient and recover from GI bleed. Decide further work up and referral in the outpatient setting at the follow up appointment. 3. Continue K-Dur 20 M EQ p.o. 3 times daily. Goal K 4-4.5 4. Marginal BP. Concerns for RV failure. Metoprolol held and she has not receive d doses this am and last night. Discontinue Metoprolol 12.5 mg po bid (done). 5. GI team on board. She underwent EGD and flex sig as noted above. Octreotide infusion has been discontinued. She has received 6 units of PRBC as well as FFP this admit. Warfarin to be started on 10/24/2020. INR 1.8 on 10/24/20. 6. Recommend Cashier Wrapper consultation to discuss sodium restricted diet as well as hypoalbuminemia 2.8 on 10/24/2020. 7. Iron studies 10/24/2020 with percent sat of 12 and ferritin was 130. Recommend IV iron. Ongoin. BMP once a day/BID on diuretic drip. Magnesium level daily. Keep Potassium greater than 4.0 and Magnesium greater than 2.0. 2. 2000mg sodium dietary restriction. 3. Fluid Restriction:1.5 4. Strict I/O. Goal output: net neg 1L/24 hour 5. Daily standing scale weight. Goal Dry Weight: ~129-130# 6. Follow up appointment with a member of the HF team: Primary team, for Heart F ailure Clinic post hospital 7 day follow up visit, please place [facility] App[facility] Request order set for "Cardiology: Heart Failure" kirti ointment request within 24-48 hours of discharge. (Please do not place order any earlier in effort to reduce possible need for cancellation and rescheduling of visit). The Complexity of medical decision making is high due to the multi-system diseas es present and the complexity/severity and gravity of the patient's underlying c ardiac illnesses and interplay of other issues. Discussed with Cardiology attending Dr. Bustillo. Discussed with Dr. Geller with Primary team. Shruti Newberry PA-C Department of Cardiovascular Medicine [facility] Available on Voalte/AMS/Pager [phone] Assessment: Acute on Chronic diastolic HFpEF, EF: 60% NYHA class III, ACC Stage C/predomina ntly RV failure Major Complications or Comorbidities ([facility]): acute/ acute on chronic systolic and /or diastolic heart failure, Torrential TR She presents with signs of hypovolemia with bi ventricular failure without sign s of low flow state. Intake/Output Summary (Last 24 hours) at 10/24/2020 1418 Last data filed at 10/24/2020 1034 Gross per 24 hour Intake 570 ml Output 3550 ml Net -2980 ml Admission Weight: 59.8 kg (131 lb 12.8 oz) Most recent weights (inpatient): Vitals: 10/23/20 1723 Weight: 59.8 kg (131 lb 12.8 oz) Recommendations: GDMT [employer] Changes BB Lopressor 12.5 mg twice daily -10/23 did not receive PM dose 10/24 Am dose held. BB discontinued due to low BP and concerns for RV failure. ACEI/ARB/ARNI No Ejection Fraction >= 40% SGLT-2 Inhibitor Aldosterone Antagonist spironolactone 100 mg daily on hold with elevated creati nine. Hydralazine/Nitrate No (N/A - patient not Black/) Ivabradine No; Not treated with maximally tolerated dose beta blockers or beta b lockers contraindicated HRMT No (EF>35%) Anticoagulation for mechanical aortic valve Yes- goal 2.5-3.5 10/20: INR 3.2 10/21: INR 3.7- hold warfarin tonight, may need FFP. 10/22: INR 3.1, resume warfarin tonight 10/23: INR 2.8 Cardiac Rehab Evaluation for LVEF <40% Diuretic Therapy Prior to admission dose Bumex 5 mg p.o. BID and metolazone 2.5 mg twice weekly Given on admission Daily Dosing 10/22- IV Bumex 2 mg BID. Nonischemic cardiomyopathy: She had a left heart cath on 06/08/2020 that showed n o evidence of significant coronary disease. The right heart cath showed RA 20, R V 44/14, PA 49/24 with a mean of 32, wedge 25, cardiac output was 5.3 with index 3.18 by thermodilution. Paroxysmal atrial fibrillation. Episode of Afb with RVR on 10/20 at 1715, 5 mg IV metoprolol and 40 mg IV lasix were given with improvement in HR to 100 bpm. She was started on amiodarone drip (10/20-10/22). No PO loading. Mechanical aortic valve: Initial surgery in 1975 at age [age] years old, second srinath rnotomy 1997 when bioprosthetic aortic valve was replaced, third sternotomy in with mechanical valve replacement last echocardiogram showed peak velocity 2 .5 with mean gradient 13, peak aortic valve gradient 25 mmHg. Severe tricuspid regurgitation: Echocardiogram on 05/22 showed severe tricuspid re gurgitation with PA pressure 64 mmHg, pasp has increased to 79. Diuresis as abov e. May need to consider outpatient referral to valve team for torrential TR LEONORA on CKD stage III: baseline creatinine 1.3, on admission 1.72. >1.9.>1.79. improving with diuresis. Suspect some component of cardiorenal syndrome Acute GIB/Anemia:: History of angio ectasia on colonoscopy, previous EGD. Admiss ion hgb 5.9, she is receiving 2 units PRBCs. She has been started on octreotide and GI team is planning on EGD with fleixble sigmoidoscopy . 10/23: Hemoglobin has maintained steady at 8.0 today. Liver cirrhosis: Per Dr. Longo's note was felt to be secondary to chemotherapy, has had previous liver biopsy Pulmonary hypertension: Follows with Dr. Rosales, she has had a right heart cath from outside hospital showing PA pressure 50/23, wedge 19, cardiac output was 5. 5 with index 3.2. Non-Hodgkin's lymphoma diagnosed in 2004 underwent chemotherapy follows with hem atology. Restrictive lung disease: FVC 56%/FEV1 60% and DLCO of 66%. Hypokalemia-improved: 10/22: K 3.3 , KDur 20 meq po TID. 10/24: K 4.1 Subjective: Felling much improved today. Review of Systems: Denies chest pain, shortness of breath, lightheadedness, dizziness, near faintin g, palpitations, abd pain, back pain. Denies any bleeding issues. Medical History: Diagnosis Date Cancer (HCC) Non- hodgkins lymphoma, chemo Disorder of thyroid gland Hypertension Iron deficiency anemia 08/03/2020 Iron deficiency anemia 08/03/2020 Surgical History: Procedure Laterality Date AORTIC VALVE REPLACEMENT 05/2009 mechanical ESOPHAGOGASTRODUODENOSCOPY WITH BIOPSY - FLEXIBLE N/A 06/06/2020 Performed by Bao Hernández MD at [facility] COLONOSCOPY DIAGNOSTIC WITH SPECIMEN COLLECTION BY BRUSHING/ WASHING - FLEXI BLE N/A 06/06/2020 Performed by Bao Hernández MD at [facility] ANGIOGRAPHY CORONARY ARTERY WITH RIGHT AND LEFT HEART CATHETERIZATION N/A Performed by Higinio Clarke MD at [facility] [employer] POSSIBLE PERCUTANEOUS CORONARY STENT PLACEMENT WITH ANGIOPLASTY N/A Performed by Higinio Clarke MD at [facility] [employer] [facility] ESOPHAGOGASTRODUODENOSCOPY WITH SPECIMEN COLLECTION BY BRUSHING/ WASHING N/A 10/21/2020 Performed by Cosmo Gomez MD at [facility] SIGMOIDOSCOPY WITH CONTROL OF BLEEDING - FLEXIBLE N/A 10/21/2020 Performed by Cosmo Gomez MD at [facility] SIGMOIDOSCOPY WITH DIRECTED SUBMUCOSAL INJECTION - FLEXIBLE 10/21/2020 Performed by Cosmo Gomez MD at [facility] Family History Problem Relation Age of Onset COPD Mother Social History Socioeconomic History Marital status: Life Partner Spouse name: Not on file Number of children: 3 Years of education: Not on file Highest education level: Not on file Occupational History Not on file Tobacco Use Smoking status: Never Smoker Smokeless tobacco: Never Used Substance and Sexual Activity Alcohol use: Not Currently Drug use: Never Sexual activity: Not Currently Other Topics Concern Not on file Social History Narrative Not on file Objective: Allergies: No Known Allergies Medications: Scheduled Meds:bumetanide (BUMEX) injection 2 mg, 2 mg, Intravenous, BID(9-17) cefTRIAXone (ROCEPHIN) IVP 1 g, 1 g, Intravenous, Q24H* fluticasone propionate (FLONASE) nasal spray 1 spray, 1 spray, Each Nostril, BID iron sucrose (VENOFER) 300 mg in sodium chloride 0.9% (NS) IVPB, 300 mg, Intrave nous, QDAY levothyroxine (SYNTHROID) tablet 75 mcg, 75 mcg, Oral, QDAY 30 min before breakf ast pantoprazole DR (PROTONIX) tablet 40 mg, 40 mg, Oral, QDAY(21) potassium chloride SR (K-DUR) tablet 20 mEq, 20 mEq, Oral, TID sertraline (ZOLOFT) tablet 100 mg, 100 mg, Oral, QDAY warfarin (COUMADIN) tablet 5 mg, 5 mg, Oral, QHS Continuous Infusions: PRN and Respiratory Meds:acetaminophen Q4H PRN, aluminum/magnesium hydroxide Q4H PRN, diphenhydrAMINE Q4H PRN, docusate QDAY PRN, EPINEPHrine PF Q5 MIN PRN, james atonin QHS PRN, nitroglycerin Q5 MIN PRN, ondansetron Q6H PRN, promethazine Q6H PRN, warfarin, pharmacy to manage Per Pharmacy Medications Prior to Admission Medication Sig Dispense Refill Last Dose ascorbic acid (VITAMIN C) 500 mg tablet Take 500 mg by mouth daily. Past [place] bumetanide (BUMEX) 2 mg tablet Take 2.5 tablets by mouth twice daily. 150 ta blet 3 Past Week calcium carbonate (OS-KRUPA) 1250 mg tablet Take 1,250 mg by mouth daily. Pa Week [] enoxaparin (LOVENOX) 60 mg syringe Inject 0.6 mL under the skin ev [place] 12 hours for 10 days. 20 each 0 10/19/2020 ergocalciferol (VITAMIN D-2) 1,250 mcg (50,000 unit) capsule Take 1 capsule by mouth every 7 days. Past Week fluticasone propionate (FLONASE) 50 mcg/actuation nasal spray, suspension Ap ply to each nostril as directed daily. Shake bottle gently before using. >1 Month levothyroxine (SYNTHROID) 75 mcg tablet Take 75 mcg by mouth daily 30 minute s before breakfast. Past Week metOLazone (ZAROXOLYN) 2.5 mg tablet Take one tablet by mouth twice weekly. Take on Friday and Friday. When directed, take 30-60 minutes prior to your Bumex. 40 tablet 1 Past Week metoprolol tartrate (LOPRESSOR) 25 mg tablet Take one-half tablet by mouth t wice daily. 90 tablet 3 Past Week ondansetron (ZOFRAN) 4 mg tablet Take 4 mg by mouth every 8 hours as needed for Nausea or Vomiting. med not active pantoprazole DR (PROTONIX) 40 mg tablet Take one tablet by mouth daily. Blanquita cations: indigestion, gastroesophageal reflux disease, heartburn, bleeding from stomach, esophagus or duodenum 90 tablet 0 Past Week potassium chloride SR (K-DUR) 20 mEq tablet Take 20 mEq by mouth twice daily . Take with a meal and a full glass of water. Past Week promethazine (PHENERGAN) 25 mg tablet Take 25 mg by mouth as Needed for Naus ea or Vomiting. med not active sertraline (ZOLOFT) 100 mg tablet Take 100 mg by mouth daily. Past Week spironolactone (ALDACTONE) 100 mg tablet Take one tablet by mouth daily for 360 days. Take with food. 90 tablet 3 Past Week VASCEPA 1 gram capsule TAKE 2 CAPSULES BY MOUTH TWICE DAILY WITH MEALS Pas t Week warfarin (COUMADIN) 2.5 mg tablet Take one tablet by mouth daily. Take as di rected by physician managing INR. (Patient taking differently: Take 5 mg by mout h daily. Take as directed by physician managing INR.) 30 tablet 0 Past Week Vital Signs: Last Filed Vital Signs: 24 Hour Range BP: 95/56 (10/24 1333) Temp: 36.6 C (97.8 F) (10/24 1211) Pulse: 102 (10/24 1333) Respirations: 18 PER MINUTE (10/24 1211) SpO2: 100 % (10/24 1211) SpO2 Pulse: 93 (10/24 0300) Height: 157.5 cm (5' 2") (10/23 1723) BP: (80-98)/(52-67) Temp: [36.4 C (97.5 F)-36.7 C (98.1 F)] Pulse: [91-102] Respirations: [18 PER MINUTE-20 PER MINUTE] SpO2: [96 %-100 %] Intensity Pain Scale (Self Report): 0 (10/24/20 0056) Wt Readings from Last 10 Encounters: 10/23/20 59.8 kg (131 lb 12.8 oz) 10/21/20 61.7 kg (136 lb 0.4 oz) 10/12/20 61.7 kg (136 lb) 09/07/20 61.2 kg (135 lb) 08/24/20 60.6 kg (133 lb 9.6 oz) 08/22/20 59.9 kg (132 lb) 08/03/20 66 kg (145 lb 9.6 oz) 08/01/20 68.2 kg (150 lb 6.4 oz) 07/18/20 66.5 kg (146 lb 9.6 oz) 07/10/20 69.8 kg (153 lb 12.8 oz) Physical Exam: General Appearance: thin, appears stated age, appears fatigued. Skin: bruising on right forehead, right shoulder and right knee.Appears slightly jaundiced. Digits and Nails: no cyanosis or clubbing Eyes: conjunctivae and lids normal, pupils are equal and round Teeth/Gums/Palate: dentition unremarkable, no lesions Lips & Oral Mucosa: no pallor or cyanosis Neck Veins: JVP ~8- 9cm, HJR positive. Does have torrential TR Chest Inspection: chest is normal in appearance Respiratory Effort: breathing comfortably, no respiratory distress Auscultation/Percussion: lungs CTA Cardiac Rhythm: regular rhythm and tachycardiac rate Cardiac Auscultation: S1, S2 present but clear splitting not heard, no rub, no S 3 gallop, no S4 gallop Murmurs:grade ii/vi systolic murmur at RSB Lower Extremity Edema:nolower extremity edema Peripheral Circulation: distal upper and lower extremities warm Abdominal Exam: soft, non-tender, no masses, bowel sounds normal Orientation: oriented to time, place and person Affect & Mood: appropriate and sustained affect Language and Memory: patient responsive and seems to comprehend information Laboratory Review: CBC w diff Lab Results Component Value Date/Time WBC 4.8 10/24/2020 05:47 AM RBC 2.53 (L) 10/24/2020 05:47 AM HGB 8.0 (L) 10/24/2020 05:47 AM HCT 23.7 (L) 10/24/2020 05:47 AM MCV 93.6 10/24/2020 05:47 AM MCH 31.6 10/24/2020 05:47 AM MCHC 33.8 10/24/2020 05:47 AM RDW 16.6 (H) 10/24/2020 05:47 AM PLTCT 118 (L) 10/24/2020 05:47 AM MPV 7.2 10/24/2020 05:47 AM Lab Results Component Value Date/Time NEUT 79 (H) 08/24/2020 09:19 AM ANC 4.01 08/24/2020 09:19 AM LYMA 10 (L) 08/24/2020 09:19 AM ALC 0.49 (L) 08/24/2020 09:19 AM TINY 10 08/24/2020 09:19 AM AMC 0.49 08/24/2020 09:19 AM EOSA 0 08/24/2020 09:19 AM AEC 0.01 08/24/2020 09:19 AM BASA 1 08/24/2020 09:19 AM ABC 0.03 08/24/2020 09:19 AM Chemistry Lab Results Component Value Date/Time NA 131 (L) 10/24/2020 05:47 AM K 4.1 10/24/2020 05:47 AM CL 98 10/24/2020 05:47 AM CO2 28 10/24/2020 05:47 AM GAP 5 10/24/2020 05:47 AM BUN 34 (H) 10/24/2020 05:47 AM CR 1.47 (H) 10/24/2020 05:47 AM GLU 112 (H) 10/24/2020 05:47 AM GLU 143 (H) 07/28/2020 09:45 AM Lab Results Component Value Date/Time CA 7.7 (L) 10/24/2020 05:47 AM PO4 3.3 10/20/2020 05:12 PM ALBUMIN 2.8 (L) 10/24/2020 05:47 AM TOTPROT 4.9 (L) 10/24/2020 05:47 AM ALKPHOS 50 10/24/2020 05:47 AM AST 22 10/24/2020 05:47 AM ALT 11 10/24/2020 05:47 AM TOTBILI 0.8 10/24/2020 05:47 AM GFR 37 (L) 10/24/2020 05:47 AM GFRAA 44 (L) 10/24/2020 05:47 AM Renal Function Lab Results Component Value Date/Time NA 131 (L) 10/24/2020 05:47 AM K 4.1 10/24/2020 05:47 AM CL 98 10/24/2020 05:47 AM CO2 28 10/24/2020 05:47 AM GAP 5 10/24/2020 05:47 AM BUN 34 (H) 10/24/2020 05:47 AM BUN 42 (H) 10/23/2020 12:35 PM BUN 50 (H) 10/22/2020 03:12 AM Lab Results Component Value Date/Time CR 1.47 (H) 10/24/2020 05:47 AM CR 1.79 (H) 10/23/2020 12:35 PM CR 1.91 (H) 10/22/2020 03:12 AM GLU 112 (H) 10/24/2020 05:47 AM GLU 143 (H) 07/28/2020 09:45 AM CA 7.7 (L) 10/24/2020 05:47 AM PO4 3.3 10/20/2020 05:12 PM ALBUMIN 2.8 (L) 10/24/2020 05:47 AM Lipid Profile INR No results found for: CHOL, TRIG, HDL, LDL, VLDL, NONHDLCHOL, CHOLHDLC Lab Results Component Value Date INR 1.8 (H) 10/24/2020 Chest X-Ray: none this admit. Tele/ECG: SR 90. No sustained arrhythmias Echocardiogram Details: Echo Results (Last 3 results in the past 3 years) Echo EF LVIDD LA Size IVS LVPW Rest PAP (10/21/20) 60 (10/21/20) 4.46 (10/21/20) 5.96 (10/21/20) 1.21 (10/21/20) 1.16 (10/21/20) 79 (05/22/20) 60 (05/22/20) 4.31 (05/22/20) 6.56 (05/22/20) 1.21 (05/22/20) 1.30 (05/22/20) 64 * Duyen Arroyo DO - 10/24/2020 12:24 PM CDT General Progress Note Name: Zaria Paulson Today's Date: 10/24/2020 Admission Date: 10/20/2020 LOS: 4 days Assessment/Plan: Principal Problem: GI bleeding Active Problems: Chronic heart failure with preserved ejection fraction (HCC) Anemia Severe tricuspid regurgitation Aortic valve prosthesis present Chronic anticoagulation History of endocarditis Iron deficiency anemia Cirrhosis (HCC) Paroxysmal atrial fibrillation (HCC) Stage 3b chronic kidney disease (HCC) LEONORA (acute kidney injury) (HCC) Hypoalbuminemia Zaria Paulson is a 60 y.o. female with history of liver cirrhosis, HFpEF, SHANTANU M, S/P mechanical aortic valve on coumadin, atrial fibrillation and previously t reated non-Hodgkin's lymphoma who presented to the hospital for implantation of CardioMEMs but was found to be severely anemia and is now being admitted to the medicine for acute GI bleeding. Acute GI bleed Acute blood loss anemia worsening chronic iron deficiency anemia - Given bright red stool with clots, concern for colonic source, possibly anothe r AVM but given drop in Hb and BP, as well as nausea, upper GI source cannot be ruled out. It would be unusual for varices to develop over months, but defer to hepatology. - Hepatology consulted, recs appreciated - Last iron infusion in August 2020. EGD in May 2020 essentially normal. C-scope in May 2020 with angiectasia, treated with argon plasma. - 10/21 s/p EGD with no bleeding, flex sig showed arterial oozing around 30 cm in sigmoid colon that was consistent w/dieulafoy lesion s/epi injection along with bipolar cautery and 2 hemoclips - IV octreotide discontinued 10/21 - IV PPI switched to PO; continue IV rocephin - Transfuse to keep Hb>7 - S/p 5 units transfused thus far, along with FFP - Continues to do well - Will give IV iron x 3 days Chronic HFpEF without acute exacerbation Pulmonary HTN with chronic cor pulmonale Paroxysmal atrial fibrillation with RVR - Originally presented for CardioMEMs implantation, procedure deferred for now - Hold [employer] aldactone, bumex, metolazone, metoprolol due to severe hypotension as sociated with GI bleeding - Monitor closely for resuming as BP allows. BB should be restarted first for moran ppression of atrial tachycardia -10/20 rapid responded due to A. fib with RVR in the setting of hypotension, was given IV push metoprolol and started on amiodarone infusion -10/21 patient continues to go in and out of A. fib with RVR on amiodarone infusi on, beta-gulshan limited due to hypotension - 10/21 heart failure consulted, case discussed and they feel that patient should go to the ICU however after discussion and eval by ICU team, they feel patient can stay on floor - Echo in May 2020 with EF 60% and abnormal septal motion from right ventricle pressure overload. Right ventricle contractility was assumed normal. - Currently doing well from heart failure standpoint - 10/22 discontinued amio infusion - 10/22 started on 12.5 mg of metoprolol BID with parameters - 10/22 started on bumex 2 mg IV BID along with KCL 20 mEq TID - Since patient has done well for the past 24 hours, resuming warfarin with phar lizbeth to dose Mechanical aortic valve - Open heart surgery at age 16 in 1975 for aortic valve repair. Developed CHF an d underwent bioprosthetic valve placement in 1997. Subsequently had failed biopr osthetic valve and underwent mechanical valve placement in 2010. - On coumadin at home with recent hold for procedure with lovenox bridging. Last dose of lovenox 10/19 PM. - INR on admission 2.8 8 - S/p 1 unit of FFP due to continued bleeding on 10/21 - 10/24 resuming warfarin Liver cirrhosis - Likely from chemotherapy for NHL - Hepatology following - SBP ppx with rocephin CKD Stage III Hypokalemia, resolved - sCr. Near baseline, hypokalemia likely from GI losses - Renal function worsening due to acute blood loss anemia - Continue treating underlying condition - Renal function improving Hyponatremia -mild -Continue to monitor, likely from underling liver disease vs diuresis Hypokalemia - PO replacement - Continue to monitor NHL - Appears to be in remission IVF: none Nutrition: Cardiac healthy diet VTE prophylaxis: warfarin Code Status: Full code Disposition: Admit to medicine for further evaluation and management of principl e problem Duyen Arroyo, DO Internal Medicine Med Private L Subjective Zaria Paulson is a 60 y.o. female. Patient continues to do well. No issues overnight. Eating and drinking well. No further bloody bowel movements. Doing well from respiratory standpoint. ROS: Denies chest pain and SOB. No abdominal pain. No N/V. No fever or chills. Medications Scheduled Meds:bumetanide (BUMEX) injection 2 mg, 2 mg, Intravenous, BID(-17) cefTRIAXone (ROCEPHIN) IVP 1 g, 1 g, Intravenous, Q24H* fluticasone propionate (FLONASE) nasal spray 1 spray, 1 spray, Each Nostril, BID iron sucrose (VENOFER) 300 mg in sodium chloride 0.9% (NS) IVPB, 300 mg, Intrave nous, QDAY levothyroxine (SYNTHROID) tablet 75 mcg, 75 mcg, Oral, QDAY 30 min before breakf ast pantoprazole DR (PROTONIX) tablet 40 mg, 40 mg, Oral, QDAY(21) potassium chloride SR (K-DUR) tablet 20 mEq, 20 mEq, Oral, TID sertraline (ZOLOFT) tablet 100 mg, 100 mg, Oral, QDAY warfarin (COUMADIN) tablet 5 mg, 5 mg, Oral, QHS Continuous Infusions: PRN and Respiratory Meds:acetaminophen Q4H PRN, aluminum/magnesium hydroxide Q4H PRN, diphenhydrAMINE Q4H PRN, docusate QDAY PRN, EPINEPHrine PF Q5 MIN PRN, james atonin QHS PRN, nitroglycerin Q5 MIN PRN, ondansetron Q6H PRN, promethazine Q6H PRN, warfarin, pharmacy to manage Per Pharmacy Objective: Vital Signs: Last Filed Vital Signs: 24 Miguel r Range BP: 91/52 (10/24 1210) Temp: 36.6 C (97.8 F) (10/24 1210) Pulse: 94 (10/24 1210) Respirations: 18 PER MINUTE (10/24 1210) SpO2: 100 % (10/24 1210) SpO2 Pulse: 93 (10/24 0300) Height: 157.5 cm (62") (10/23 1722) BP: (80-92)/(52-67) Temp: [36.4 C (97.5 F)-36.7 C (98.1 F)] Pulse: [91-99] Respirations: [18 PER MINUTE-20 PER MINUTE] SpO2: [96 %-100 %] Intensity Pain Scale (Self Report): 0 (10/24/20 0056) Vitals: 10/23/20 1723 Weight: 59.8 kg (131 lb 12.8 oz) Intake/Output Summary: (Last 24 hours) Intake/Output Summary (Last 24 hours) at 10/24/2020 1224 Last data filed at 10/24/2020 1034 Gross per 24 hour Intake 570 ml Output 3550 ml Net -2980 ml Stool Occurrence: 1 Physical Exam Gen: appears comfortable on RA HEENT: AT/NC. No scleral icterus, EOM grossly intact. Ears/nose grossly normal. Moist mucous membranes Cardiovascular: Regular rhythm, rate in the 90s, normal s1s2, holosystolic mecha nical murmur Respiratory: Normal respiratory effort, CTAB Gastrointestinal: Non-distended soft abdomen, bowel sounds present, no peritonea l signs Musculoskeletal: Spontaneously moves all extremities Extremities: No edema Skin: Dry Neurological: A&O x3. Grossly non-focal Psychiatry: Mood and affect congruent Lab Review Pertinent labs reviewed Point of Care Testing (Last 24 hours) Glucose: (!) 112 (10/24/20 0547) Radiology and other Diagnostics Review: Pertinent radiology reviewed., EKG Reviewed Duyen Arroyo DO * Heaven Lewis PHARMD - 10/24/2020 8:39 AM CDT Pharmacy Warfarin Note Subjective: Pharmacy consulted to assist with management of warfarin therapy. Objective: Zaria Paulson is a 60 y.o. female receiving warfarin for Mechanical AVR. Current Warfarin Orders Medication Dose Route Frequency warfarin (COUMADIN) tablet 5 mg 5 mg Oral QHS warfarin, pharmacy to manage 1 each Service Per Pharmacy Bridge therapy: None. Warfarin dose for Ms. Paulson prior to admission: 5mg INR Date/Time Value Ref Range Status 10/24/2020 0547 1.8 (H) 0.8 - 1.2 Final 10/23/2020 0837 2.8 (H) 0.8 - 1.2 Final 10/22/2020 0312 3.1 (H) 0.8 - 1.2 Final 10/21/2020 1846 3.7 (H) 0.8 - 1.2 Final Drug interaction(s): None. Assessment: Goal INR for Ms. Paulson is 2-3 for Mechanical AVR. INR: INR (no units) Date/Time Value 10/24/2020 0547 1.8 (H) INR POC (no units) Date/Time Value 10/20/2020 0913 2.8 (H) Plan: 1. Will re-initiate patient on her [employer] dose of 5mg. Discussed with provider an d no plans to bridge patient at this time due to recent bleeding complications. 2. Next INR: Tomorrow 3. Pharmacy will continue to monitor, follow and adjust therapy as needed. If a patient requires an invasive procedure that necessitates warfarin being hel d, anticoagulation reversal, or if a provider other than Pharmacy discontinues/p laces an order for warfarin, the pharmacy to manage warfarin order will be disco ntinued per the policy and warfarin therapy will no longer be managed by Paula Lewis PHARMD 10/24/2020 * Duyen Arroyo DO - 10/23/2020 9:28 AM CDT General Progress Note Name: Zaria Paulson Today's Date: 10/23/2020 Admission Date: 10/20/2020 LOS: 3 days Assessment/Plan: Principal Problem: GI bleeding Active Problems: Chronic heart failure with preserved ejection fraction (HCC) Anemia Severe tricuspid regurgitation Aortic valve prosthesis present Chronic anticoagulation History of endocarditis Iron deficiency anemia Cirrhosis (HCC) Paroxysmal atrial fibrillation (HCC) Stage 3b chronic kidney disease (HCC) LEONORA (acute kidney injury) (HCC) Zaria Paulson is a 60 y.o. female with history of liver cirrhosis, HFpEF, SHANTANU M, S/P mechanical aortic valve on coumadin, atrial fibrillation and previously t reated non-Hodgkin's lymphoma who presented to the hospital for implantation of CardioMEMs but was found to be severely anemia and is now being admitted to the medicine for acute GI bleeding. Acute GI bleed Acute blood loss anemia worsening chronic iron deficiency anemia - Given bright red stool with clots, concern for colonic source, possibly anothe r AVM but given drop in Hb and BP, as well as nausea, upper GI source cannot be ruled out. It would be unusual for varices to develop over months, but defer to hepatology. - Hepatology consulted, recs appreciated - Last iron infusion in August 2020. EGD in May 2020 essentially normal. C-scope in May 2020 with angiectasia, treated with argon plasma. - 10/21 s/p EGD with no bleeding, flex sig showed arterial oozing around 30 cm in sigmoid colon that was consistent w/dieulafoy lesion s/epi injection along with bipolar cautery and 2 hemoclips - IV octreotide discontinued 10/21 - IV PPI switched to PO; continue IV rocephin - Transfuse to keep Hb>7 - S/p 5 units transfused thus far, along with FFP - Doing better 10/23, continue to monitor Chronic HFpEF without acute exacerbation Pulmonary HTN with chronic cor pulmonale Paroxysmal atrial fibrillation with RVR - Originally presented for CardioMEMs implantation, procedure deferred for now - Hold [employer] aldactone, bumex, metolazone, metoprolol due to severe hypotension as sociated with GI bleeding - Monitor closely for resuming as BP allows. BB should be restarted first for moran ppression of atrial tachycardia -10/20 rapid responded due to A. fib with RVR in the setting of hypotension, was given IV push metoprolol and started on amiodarone infusion -10/21 patient continues to go in and out of A. fib with RVR on amiodarone infusi on, beta-gulshan limited due to hypotension - 10/21 heart failure consulted, case discussed and they feel that patient should go to the ICU however after discussion and eval by ICU team, they feel patient can stay on floor - Echo in May 2020 with EF 60% and abnormal septal motion from right ventricle pressure overload. Right ventricle contractility was assumed normal. - Currently doing well from heart failure standpoint - 10/22 discontinued amio infusion - 10/22 started on 12.5 mg of metoprolol BID with parameters - 10/22 started on bumex 2 mg IV BID along with KCL 20 mEq TID - Will continue to hold of on anticoagulation since patient received another uni t of blood and had bloody BM overnight, plan on resuming anticoagulation in 24 h ours if remains stable Mechanical aortic valve - Open heart surgery at age 16 in 1975 for aortic valve repair. Developed CHF an d underwent bioprosthetic valve placement in 1997. Subsequently had failed biopr osthetic valve and underwent mechanical valve placement in 2010. - On coumadin at home with recent hold for procedure with lovenox bridging. Last dose of lovenox 10/19 PM. - INR on admission 2.8 10/23 - S/p 1 unit of FFP due to continued bleeding on 10/21 - Plan on holding anticoagulation for another 24 hours Liver cirrhosis - Likely from chemotherapy for NHL - Hepatology following CKD Stage III Hypokalemia, resolved - sCr. Near baseline, hypokalemia likely from GI losses - Renal function worsening due to acute blood loss anemia - Continue treating underlying condition - Awaiting labs from today Hyponatremia -mild, resolved Hypokalemia - PO replacement - Awaiting labs from today - Continue to monitor NHL - Appears to be in remission IVF: none Nutrition: Cardiac healthy diet VTE prophylaxis: SCDs only Code Status: Full code Disposition: Admit to medicine for further evaluation and management of principl e problem Duyen Arroyo, DO Internal Medicine Med Private L Subjective Zaria Paulson is a 60 y.o. female. Patient doing well this AM. Had 2 large B Ms yesterday that had blood in them. No abd pain. Eating and drinking well. ROS: Denies chest pain and SOB. No abdominal pain. No N/V. No fever or chills. Medications Scheduled Meds:bumetanide (BUMEX) injection 2 mg, 2 mg, Intravenous, BID(-) cefTRIAXone (ROCEPHIN) IVP 2 g, 2 g, Intravenous, Q24H* fluticasone propionate (FLONASE) nasal spray 1 spray, 1 spray, Each Nostril, BID levothyroxine (SYNTHROID) tablet 75 mcg, 75 mcg, Oral, QDAY 30 min before breakf ast metoprolol tartrate tablet 12.5 mg, 12.5 mg, Oral, BID pantoprazole (PROTONIX) injection 40 mg, 40 mg, Intravenous, BID(-) potassium chloride SR (K-DUR) tablet 20 mEq, 20 mEq, Oral, TID sertraline (ZOLOFT) tablet 100 mg, 100 mg, Oral, QDAY Continuous Infusions: PRN and Respiratory Meds:acetaminophen Q4H PRN, aluminum/magnesium hydroxide Q4H PRN, docusate QDAY PRN, fentaNYL citrate PF Q5 MIN PRN, fentaNYL citrate PF Q5 MIN PRN, fentaNYL citrate PF Q5 MIN PRN, melatonin QHS PRN, nitroglycerin Q5 MIN PRN, ondansetron Q6H PRN, promethazine Q6H PRN, promethazine Q10 MIN PRN Objective: Vital Signs: Last Filed Vital Signs: 24 Miguel r Range BP: 98/60 (10/24 835) Temp: 36.3 C (97.4 F) (10/24 835) Pulse: 97 (10/24 835) Respirations: 18 PER MINUTE (10/24 835) SpO2: 100 % (10/24 835) SpO2 Pulse: 89 (10/23 599) BP: (81-102)/(56-64) Temp: [36.3 C (97.4 F)-36.9 C (98.5 F)] Pulse: [87-97] Respirations: [18 PER MINUTE-24 PER MINUTE] SpO2: [97 %-100 %] Intensity Pain Scale (Self Report): Asleep (10/22/20 2318) There were no vitals filed for this visit. Intake/Output Summary: (Last 24 hours) Intake/Output Summary (Last 24 hours) at 10/23/2020927 Last data filed at 10/22/2020 2121 Gross per 24 hour Intake 1250 ml Output 850 ml Net 400 ml Stool Occurrence: 1 Physical Exam Gen: appears comfortable on RA HEENT: AT/NC. No scleral icterus, EOM grossly intact. Ears/nose grossly normal. Moist mucous membranes Cardiovascular: Regular rhythm, rate in the 90s, normal s1s2, holosystolic mecha nical murmur Respiratory: Normal respiratory effort, CTAB Gastrointestinal: Non-distended soft abdomen, bowel sounds present, no peritonea l signs Musculoskeletal: Spontaneously moves all extremities Extremities: No edema Skin: Dry Neurological: A&O x3. Grossly non-focal Psychiatry: Mood and affect congruent Lab Review Pertinent labs reviewed Point of Care Testing (Last 24 hours) Radiology and other Diagnostics Review: Pertinent radiology reviewed., EKG Reviewed Duyen Arroyo DO * Gabriel Dominguez MD - 10/23/2020 9:05 AM CDT Hepatology Consult Note Patient Name:Zaria Paulson Admission Date: 10/20/2020 8:34 AM Principal Problem: GI bleeding Active Problems: Chronic heart failure with preserved ejection fraction (HCC) Anemia Severe tricuspid regurgitation Aortic valve prosthesis present Chronic anticoagulation History of endocarditis Iron deficiency anemia Cirrhosis (HCC) Paroxysmal atrial fibrillation (HCC) Stage 3b chronic kidney disease (HCC) LEONORA (acute kidney injury) (HCC) History of Present Illness/Subjective: Pt feeling well this morning. No further bouts of hematochezia or melena. No n/ v. Tolerating diet. Hgb stable. Assessment/ Plan: Zaria Paulson is a 60 y.o. female with history of HFpEF, mechanical AVR on wa rfarin, pAfib, HTN, JANKI, CKD, hypothyroidism non-Hodgkin's lymphoma, cirrhosis w ith ascites who presented for implantation of CardioMEMs device. Procedure was c ancelled after patient reported ongoing hematochezia. Hepatology is consulted fo r further evaluation. Decompensated Cirrhosis -Etiology uncertain. Patient reports 2/2 chemotherapy; however she does have a l ongstanding cardiac hx with severe TR and pulmonary HTN. Previous liver bx revie wed by pathology and shows features of outflow obstruction raising concern fo r cardiac cirrhosis. -Decompensated by ascites/volume overload (cardiac?) -Follows with Dr. Marti -Not a transplant candidate due to co-morbidities -MELD elevated due to warfarin use -MELD-Na score: 24 at 10/23/2020 8:37 AM MELD score: 24 at 10/23/2020 8:37 AM Calculated from: Serum Creatinine: 1.91 MG/DL at 10/22/2020 3:12 AM Serum Sodium: 137 MMOL/L at 10/22/2020 3:12 AM Total Bilirubin: 0.8 MG/DL (Rounded to 1 MG/DL) at 10/22/2020 3:12 AM INR(ratio): 2.8 at 10/23/2020 8:37 AM Age: 60 years 9 months Hematochezia Hx of Colonic AVMs Varices screening -Hematochezia x4 days. No pain Chronic nausea without hematemesis or CGE. -Mildly tachycardic 90-100, Systolic BP 85-100. (Appears similar to recent clini c appt where HR 89 and BP 99/62) -Hgb 5.9 at presentation from 11.6 previously -On warfarin at baseline, last 10/14, INR 3.2. Bridging with lovenox, last 10/19 -EGD 06/06/20: Normal esophagus, stomach, duodenum -Colonoscopy 06/06/20: Normal TI, 3mm IC valve polyp (not resected), single angio ectasia in sigmoid treated with APC, sigmoid diverticulosis, external hemorrhoid s. -Differential includes bleeding from angioectasia, diverticular bleed. Less like ly ischemic colitis. With soft BP and tachycardia, brisk upper bleeding is not e xcluded. > 10/21 EGD normal. Flex sig with sigmoid dieulafoy s/p epinephrine, bipolar cautery, hemoclips x 2 with successful hemostasis. Ascites/Volume Status -Appears moderately distended. No peripheral edema. Last imaging in May with m oderate ascites and body wall edema -[employer] Bumex 5 mg BID, Spironolactone 100 mg BID, metolazone twice weekly Hepatic Encephalopathy -No prior history -On exam, A&Ox3, no asterixis HCC Screening -CT w/ contrast 06/01/20 neg for focal hepatic lesions -No prior AFP HFpEF S/p AVR Severe Tricuspid regurgitation Pulmonary HTN Recommendations: - No further episodes of GI blood loss. Hgb stable. -Ceftriaxone (or equivalent) for SBP prophylaxis x 7 days total -Hold diuretics - With strong indication for anticoagulation, would recommend beginning shorter acting anticoagulation today (lovenox, heparin) -- per cardiology. If there is n o evidence of recurrent bleeding, would start warfarin 10/24/20. Patient seen/discussed with Dr. Ok Dominguez GI Fellow [id number] PMH: Medical History: Diagnosis Date Cancer (HCC) Non- hodgkins lymphoma, chemo Disorder of thyroid gland Hypertension Iron deficiency anemia 08/03/2020 Iron deficiency anemia 08/03/2020 Current medications: No current facility-administered medications on file prior to encounter. Current Outpatient Medications on File Prior to Encounter Medication Sig Dispense Refill ascorbic acid (VITAMIN C) 500 mg tablet Take 500 mg by mouth daily. bumetanide (BUMEX) 2 mg tablet Take 2.5 tablets by mouth twice daily. 150 ta blet 3 calcium carbonate (OS-KRUPA) 1250 mg tablet Take 1,250 mg by mouth daily. ergocalciferol (VITAMIN D-2) 1,250 mcg (50,000 unit) capsule Take 1 capsule by mouth every 7 days. FERROUS GLUCONATE PO Take 37.5 mg by mouth every 48 hours. fluticasone propionate (FLONASE) 50 mcg/actuation nasal spray, suspension Ap ply to each nostril as directed daily. Shake bottle gently before using. levothyroxine (SYNTHROID) 75 mcg tablet Take 75 mcg by mouth daily 30 minute s before breakfast. metOLazone (ZAROXOLYN) 2.5 mg tablet Take one tablet by mouth twice weekly. Take on Friday and Friday. When directed, take 30-60 minutes prior to your Bumex. 40 tablet 1 metoprolol tartrate (LOPRESSOR) 25 mg tablet Take one-half tablet by mouth t wice daily. 90 tablet 3 ondansetron (ZOFRAN) 4 mg tablet Take 4 mg by mouth every 8 hours as needed for Nausea or Vomiting. pantoprazole DR (PROTONIX) 40 mg tablet Take one tablet by mouth daily. Blanquita cations: indigestion, gastroesophageal reflux disease, heartburn, bleeding from stomach, esophagus or duodenum 90 tablet 0 potassium chloride SR (K-DUR) 20 mEq tablet Take 20 mEq by mouth twice daily . Take with a meal and a full glass of water. promethazine (PHENERGAN) 25 mg tablet Take 25 mg by mouth as Needed for Naus ea or Vomiting. sertraline (ZOLOFT) 100 mg tablet Take 100 mg by mouth daily. spironolactone (ALDACTONE) 100 mg tablet Take one tablet by mouth daily for 360 days. Take with food. 90 tablet 3 VASCEPA 1 gram capsule TAKE 2 CAPSULES BY MOUTH TWICE DAILY WITH MEALS warfarin (COUMADIN) 2.5 mg tablet Take one tablet by mouth daily. Take as di rected by physician managing INR. (Patient taking differently: Take 5 mg by mout h daily. Take as directed by physician managing INR.) 30 tablet 0 PSH: Surgical History: Procedure Laterality Date AORTIC VALVE REPLACEMENT 05/2009 mechanical ESOPHAGOGASTRODUODENOSCOPY WITH BIOPSY - FLEXIBLE N/A 06/06/2020 Performed by Bao Hernández MD at [facility] COLONOSCOPY DIAGNOSTIC WITH SPECIMEN COLLECTION BY BRUSHING/ WASHING - FLEXI BLE N/A 06/06/2020 Performed by Bao Hernández MD at [facility] ANGIOGRAPHY CORONARY ARTERY WITH RIGHT AND LEFT HEART CATHETERIZATION N/A Performed by Higinio Clarke MD at [facility] POSSIBLE PERCUTANEOUS CORONARY STENT PLACEMENT WITH ANGIOPLASTY N/A Performed by Higinio Clarke MD at [facility] SH: Social History Socioeconomic History Marital status: Life Partner Spouse name: Not on file Number of children: 3 Years of education: Not on file Highest education level: Not on file Occupational History Not on file Tobacco Use Smoking status: Never Smoker Smokeless tobacco: Never Used Substance and Sexual Activity Alcohol use: Not Currently Drug use: Never Sexual activity: Not Currently Other Topics Concern Not on file Social History Narrative Not on file FH: Family History Problem Relation Age of Onset COPD Mother Review of Systems: Constitutional: No fevers, chills, weight loss Eyes: No vision deficit, no icterus Ears, nose, mouth: No oral bleeding, ulcer Cardiovascular: No chest pain, palpitations Respiratory: No dyspnea, cough Gastrointestinal: See HPI Musculoskeltal: No joint inflammation, new deformity Integumentary: No rashes, exudate Neurologic: No cognitive change, focal weakness Hematologic: No for easy bleeding or bruising Please see HPI for additional pertinent documentation Physical Exam: Vitals: 10/23/20 0518 10/23/20 0600 10/23/20 0836 10/23/20 1250 BP: (!) 84/62 91/64 98/60 92/58 BP Source: Arm, Left Upper Arm, Left Upper Arm, Left Upper Pulse: 89 93 97 99 Temp: 36.4 C (97.5 F) 36.3 C (97.4 F) 36.4 C (97.6 F) SpO2: 99% 98% 100% 98% Constitutional- Vitals above, no acute distress. Head - Normocephalic, atraumatic. Eyes - EOMI grossly. No icterus or injection. Ears, nose, mouth, throat- No oral ulcer or bleeding. Neck - No swelling or tracheal deviation. Respiratory - Symmetric chest rise, no increased work of breathing. Cardiovascular - Peripheral pulses intact, no pedal edema. Gastrointestinal- Soft, non-tender, moderately distended. Skin - No exposed rash, lesion. Neurologic - No CN deficit, normal fluid speech Psychiatric - Judgement intact, thought content appropriate. Labs/Imaging: Pertient labs/imaging were reviewed on initiation of progress note. Associated attestation - Rachael Euceda MD - 10/24/2020 6:30 AM CDT ATTESTATION I personally performed the turpin portions of the E/M visit, discussed case with re sident and concur with resident documentation of history, physical exam, assessm ent, and treatment plan unless otherwise noted. Course review. Last bloody stool on 10/22. Blood pressure low, but stable. Labs: White count 6.8 hemoglobin 8 platelets 117 sodium 131 potassium 4.1 BUN 42 creatinine 1.79 total bilirubin 0.8 AST 26 ALT 11 alkaline phosphatase 52 60 y.o. female with history of HFpEF, mechanical AVR on warfarin, pAfib, HTN, ID A, CKD, hypothyroidism non-Hodgkin's lymphoma, and suspected cirrhosis with asci lilliam who presented for implantation of CardioMEMs device, now with hematochezia s econdary to colonic Dieulafoy, treated with epinephrine, bipolar, and clips (als o found to have 4 nonbleeding colonic ulcers). Reasonable to resume anticoagula tion now with close monitoring by cardiology. Ok to start wafarin today if no pl ans for Lovenox or heparin drip. She will need CBC one week after discharge. C eftriaxone 1 gram x total days (can decrease from 2 g unless there is a non GI b leed indication for this higher dose). If any evidence of GI bleeding, please p age GI fellow bonding supervisor. Can consider future EGD to evaluate for Castellanos's. Will defer to primary hepatol ogist. She needs a colonoscopy in May 2021 given remaining polyp. We will check AFP with a.m. labs. She is due for HCC screening with cross-secti onal imaging next month. Management of heart failure per cardiology. Staff name: Rachael Euceda MD Date: 10/24/2020 * Maggi Salamanca RN - 10/22/2020 8:42 PM CDT 2041: [facility] notified regarding patients low BP of 81/60. Patient states she can ru n low if she is sleeping and feels OK. Lactic acid ordered at this time and CBC sent. 2243: Patients BP was 84/59. Dr. Gonsalez notified with [facility] again. Lactic acid WNL . Provider would like pt's map to be above 60 and so long as she remains asympto matic no change in management. Repeat H&H elba at this time per providers request. * Duyen Arroyo DO - 10/22/2020 8:33 AM CDT General Progress Note Name: Zaria Paulson Today's Date: 10/22/2020 Admission Date: 10/20/2020 LOS: 2 days Assessment/Plan: Principal Problem: GI bleeding Active Problems: Chronic heart failure with preserved ejection fraction (HCC) Anemia Severe tricuspid regurgitation Aortic valve prosthesis present Chronic anticoagulation History of endocarditis Iron deficiency anemia Cirrhosis (HCC) Paroxysmal atrial fibrillation (HCC) Stage 3b chronic kidney disease (HCC) LEONORA (acute kidney injury) (HCC) Zaria Paulson is a 60 y.o. female with history of liver cirrhosis, HFpEF, SHANTANU M, S/P mechanical aortic valve on coumadin, atrial fibrillation and previously t reated non-Hodgkin's lymphoma who presented to the hospital for implantation of CardioMEMs but was found to be severely anemia and is now being admitted to the medicine for acute GI bleeding. Acute GI bleed Acute blood loss anemia worsening chronic iron deficiency anemia - Given bright red stool with clots, concern for colonic source, possibly anothe r AVM but given drop in Hb and BP, as well as nausea, upper GI source cannot be ruled out. It would be unusual for varices to develop over months, but defer to hepatology. - Hepatology consulted, recs appreciated - Last iron infusion in August 2020. EGD in May 2020 essentially normal. C-scope in May 2020 with angiectasia, treated with argon plasma. - 10/21 s/p EGD with no bleeding, flex sig showed arterial oozing around 30 cm in sigmoid colon that was consistent w/dieulafoy lesion s/epi injection along with bipolar cautery and 2 hemoclips - IV octreotide discontinued 10/21 - Continue IV PPI BID, IV rocephin - Transfuse to keep Hb>7 - S/p 4 units transfused thus far, along with FFP - Doing better 10/22, continue to monitor Chronic HFpEF without acute exacerbation Pulmonary HTN with chronic cor pulmonale Paroxysmal atrial fibrillation with RVR - Originally presented for CardioMEMs implantation, procedure deferred for now - Hold F[employer]T H[employer] INS[employer]OR [employer] PACKER aldactone, bumex, metolazone, metoprolol due to severe hypotension as sociated with GI bleeding - Monitor closely for resuming as BP allows. BB should be restarted first for moran ppression of atrial tachycardia -10/20 rapid responded due to A. fib with RVR in the setting of hypotension, was given IV push metoprolol and started on amiodarone infusion -10/21 patient continues to go in and out of A. fib with RVR on amiodarone infusi on, beta-gulshan limited due to hypotension - 10/21 heart failure consulted, case discussed and they feel that patient should go to the ICU however after discussion and eval by ICU team, they feel patient can stay on floor - Echo in May 2020 with EF 60% and abnormal septal motion from right ventricle pressure overload. Right ventricle contractility was assumed normal. - Currently doing well from heart failure standpoint - Continues to be on amio infusion - 10/22 started on 12.5 mg of metoprolol BID with parameters - Will continue to hold of on anticoagulation Mechanical aortic valve - Open heart surgery at age 16 in 1975 for aortic valve repair. Developed CHF an d underwent bioprosthetic valve placement in 1997. Subsequently had failed biopr osthetic valve and underwent mechanical valve placement in 2010. - On coumadin at home with recent hold for procedure with lovenox bridging. Last dose of lovenox 10/19 PM. - INR on admission 3.1 10/22 - S/p 1 unit of FFP due to continued bleeding on 10/21 Liver cirrhosis - Likely from chemotherapy for NHL - Hepatology following CKD Stage III Hypokalemia, resolved - sCr. Near baseline, hypokalemia likely from GI losses - Renal function worsening due to acute blood loss anemia - Continue treating underlying condition Hyponatremia -mild, improving Hypokalemia - PO replacement - Continue to monitor NHL - Appears to be in remission IVF: none Nutrition: CLD VTE prophylaxis: SCDs only Code Status: Full code Disposition: Admit to medicine for further evaluation and management of principl e problem Duyen Arroyo, DO Internal Medicine Med Private L Subjective Zaria Paulson is a 60 y.o. female. States that she is feeling much better. W as pretty sleepy this AM. Could not tell me when she last had a BM. Had EGD/sigm odoscopy yesterday. ROS: Denies chest pain and SOB. No abdominal pain. No N/V. No fever or chills. Medications Scheduled Meds:cefTRIAXone (ROCEPHIN) IVP 2 g, 2 g, Intravenous, Q24H* fluticasone propionate (FLONASE) nasal spray 1 spray, 1 spray, Each Nostril, BID levothyroxine (SYNTHROID) tablet 75 mcg, 75 mcg, Oral, QDAY 30 min before breakf ast metoprolol tartrate tablet 12.5 mg, 12.5 mg, Oral, BID pantoprazole (PROTONIX) injection 40 mg, 40 mg, Intravenous, BID(02-11) potassium chloride SR (K-DUR) tablet 60 mEq, 60 mEq, Oral, ONCE sertraline (ZOLOFT) tablet 100 mg, 100 mg, Oral, QDAY Continuous Infusions: amiodarone (CORDARONE) 360 mg in dextrose, iso-osm 200 mL infusion 0.5 mg/mi n (10/22/20 0212) PRN and Respiratory Meds:acetaminophen Q4H PRN, aluminum/magnesium hydroxide Q4H PRN, docusate QDAY PRN, fentaNYL citrate PF Q5 MIN PRN, fentaNYL citrate PF Q5 MIN PRN, fentaNYL citrate PF Q5 MIN PRN, nitroglycerin Q5 MIN PRN, ondansetron Q 6H PRN, promethazine Q6H PRN, promethazine Q10 MIN PRN Objective: Vital Signs: Last Filed Vital Signs: 24 Miguel r Range BP: 97/66 (08/01 0600) Temp: 36.1 C (97 F) (10/22 450) Pulse: 99 (10/22 599) Respirations: 20 PER MINUTE (10/22 450) SpO2: 96 % (10/22 599) SpO2 Pulse: 96 (10/22 599) Height: 157.5 cm (62.01") (10/21 0956) BP: (93-127)/(56-84) Temp: [36.1 C (97 F)-37.1 C (98.7 F)] Pulse: [93-116] Respirations: [17 PER MINUTE-33 PER MINUTE] SpO2: [91 %-100 %] Intensity Pain Scale (Self Report): 5 (10/21/202114) There were no vitals filed for this visit. Intake/Output Summary: (Last 24 hours) Intake/Output Summary (Last 24 hours) at 10/22/2020 0833 Last data filed at 10/22/2020 0300 Gross per 24 hour Intake 880 ml Output 1250 ml Net -370 ml Stool Occurrence: 1 Physical Exam Gen: appears comfortable on RA HEENT: AT/NC. No scleral icterus, EOM grossly intact. Ears/nose grossly normal. Moist mucous membranes Cardiovascular: irregularly irregular, rate in the low 90s, normal s1s2, holosys tolic mechanical murmur Respiratory: Normal respiratory effort, CTAB Gastrointestinal: Non-distended soft abdomen, bowel sounds present, no peritonea l signs Musculoskeletal: Spontaneously moves all extremities Extremities: No edema Skin: Dry Neurological: A&O x3. Grossly non-focal Psychiatry: Mood and affect congruent Lab Review Pertinent labs reviewed Point of Care Testing (Last 24 hours) Glucose: (!) 181 (10/22/20 0312) Radiology and other Diagnostics Review: Pertinent radiology reviewed., EKG Reviewed Duyen Arroyo DO * Claudette Walton APRN-IMMIGRATION JUDGE - 10/22/2020 7:39 AM CDT Heart Failure Progress Note NAME:Zaria Paulson :1960 AGE: 60 y.o. ADMISSION DATE: 10/20/2020 DAYS ADMITTED: LOS: 2 days Principal Problem: GI bleeding Active Problems: Chronic heart failure with preserved ejection fraction (HCC) Anemia Severe tricuspid regurgitation Aortic valve prosthesis present Chronic anticoagulation History of endocarditis Iron deficiency anemia Cirrhosis (HCC) Paroxysmal atrial fibrillation (HCC) Stage 3b chronic kidney disease (HCC) LEONORA (acute kidney injury) (HCC) Zaria Paulson is a 60-year-old female who presented on 10/20 for scheduled Car dioMEMS implant however was found to be severely anemic and was admitted to [facility] for acute GI bleed. She has medical history significant for cirrho sis, heart failure with preserved ejection fraction (60%), nonischemic cardiomyo yolanda ([facility] 05/2020 no CAD), mechanical aortic valve implanted in 2010 on warfarin , atrial fibrillation and previously treated non-Hodgkin's lymphoma. She has se en Dr. Longo for initial consultation on 08/01/2020, was last seen in clinic on 10/12 by Nithya Madison APRN. Recommendations: Bumex 2 mg IV BID for now while receiving blood transfusions. Her PASP on echo h as increased since May to 79, IVC is 10-20.Will start kdur 20 meq po tid. Goa l K 4-4.5. Primary team may resume warfarin since bleeding has been controlled. DC amiodarone infusion. GI team has been consulted, she has had EGD and flex sig. Octreotide infusion h as been discontinued. She has received 5 units PRBCs and ffp. Would recheck iron studies. Patient was seen and examined with Dr.Vidic Claudette Walton, HF, IMMIGRATION JUDGE [id number] Assessment: Acute on Chronic diastolic HFpEF, EF: 60% on echo 10/21/20. Technically difficult study. Echo contrast was given to enhance endocardial defi nition. 1. Normal left ventricular size. Mild concentric [...] made with a prior transthoracic echocardiogram performed . There has been interval increase in estimated pulmonary artery systolic pres sure. Previously 64 mmHg. Otherwise, no significant changes have occurred. Major Complications or Comorbidities ([facility]): acute/ acute on chronic systolic and /or diastolic heart failure NYHA functional class III (marked limitation of physical activity - comfortable at rest, but less than ordinary activity causes symptoms of HF e.g., getting kelly ssed or standing from a sitting position), ACC Stage C (structural heart disease with prior or current symptoms of HF). She presents with signs of hypovolemia with bi ventricular failure without sign s of low flow state. Admission BNP:421 Intake/Output: Entire stay net: -119 ml, Last 24 hr net: -370 ml Goal Dry Weight:estimated 130 pounds Admission Most recent weights (inpatient): There were no vitals filed for this visit. Recommendations: GDMT [employer]ER Changes BB Lopressor 12.5 mg twice daily ACEI/ARB/ARNI No Ejection Fraction >= 40% SGLT-2 Inhibitor Aldosterone Antagonist spironolactone 100 mg daily on hold with elevated creati nine. Hydralazine/Nitrate No (N/A - patient not Black/) Ivabradine No; Not treated with maximally tolerated dose beta blockers or beta b lockers contraindicated HRMT No (EF>35%) Anticoagulation for mechanical aortic valve Yes 10/20: INR 3.2 10/21: INR 3.7- hold warfarin tonight, may need FFP. 10/22: INR 3.1, resume warfarin tonight Cardiac Rehab Evaluation for LVEF <40% Diuretic Therapy Prior to admission dose Bumex 5 mg p.o. twice daily and metolazone 2.5 mg twi ce weekly Given on admission Daily Dosing 10/22 IV Bumex 2 mg BID. Nonischemic cardiomyopathy: She had a left heart cath on 06/08/2020 that showed n o evidence of significant coronary disease. The right heart cath showed RA 20, R V 44/14, PA 49/24 with a mean of 32, wedge 25, cardiac output was 5.3 with index 3.18 by thermodilution. Paroxysmal atrial fibrillation, Afb with RVR on 10/20 at 1715, 5 mg IV metoprolol and 40 mg IV lasix were given with improvement in HR to 100 bpm. She was start ed on amiodarone drip. Mechanical aortic valve: Initial surgery in 1975 at age [age] years old, second srinath rnotomy 1997 when bioprosthetic aortic valve was replaced, third sternotomy in with mechanical valve replacement last echocardiogram showed peak velocity 2 .5 with mean gradient 13, peak aortic valve gradient 25 mmHg. Severe tricuspid regurgitation: Echocardiogram on 05/22 showed severe tricuspid re gurgitation with PA pressure 64 mmHg, pasp has increased to 79. LEONORA on CKD stage III: baseline creatinine 1.3, on admission 1.72. >1.9. Acute GIB/Anemia:: History of angio ectasia on colonoscopy, previous EGD. Admiss ion hgb 5.9, she is receiving 2 units PRBCs. She has been started on octreotide and GI team is planning on EGD with fleixble sigmoidoscopy . Liver cirrhosis: Per Dr. Longo's note was felt to be secondary to chemotherapy, has had previous liver biopsy Pulmonary hypertension: Follows with Dr. Rosales, she has had a right heart cath from outside hospital showing PA pressure 50/23, wedge 19, cardiac output was 5. 5 with index 3.2. Non-Hodgkin's lymphoma diagnosed in 2004 underwent chemotherapy follows with hem atology. Restrictive lung disease: FVC 56%/FEV1 60% and DLCO of 66%. Hypokalemia: K 3.3 today, will start kdur 20 meq po TID. BMP once a day. Magnesium level daily. Keep Potassium greater than 4.0 and Magn esium greater than 2.0. 2000 mg sodium dietary restriction. Fluid Restriction 1.5L Yes Strict I/O. Standing scale daily weight. Cashier Wrapper consultation to discuss sodium restricted diet recommended. Pharmacy/Medication counseling recommended. Case Management/Social Work recommended. Physical Therapy consult recommended. Follow Up: appointment with a member of the HF team or PCP within 7 calendar day s of discharge. Subjective: She currently complains of fatigue. She had an egd/ flex late last evening. Review of Systems: Gastrointestinal: negative, positive for decreased appetite, nausea, vomiting an d melena Medical History: Diagnosis Date Cancer (HCC) Non- hodgkins lymphoma, chemo Disorder of thyroid gland Hypertension Iron deficiency anemia 08/03/2020 Iron deficiency anemia 08/03/2020 Surgical History: Procedure Laterality Date AORTIC VALVE REPLACEMENT 05/2009 mechanical ESOPHAGOGASTRODUODENOSCOPY WITH BIOPSY - FLEXIBLE N/A 06/06/2020 Performed by Bao Hernández MD at [facility] COLONOSCOPY DIAGNOSTIC WITH SPECIMEN COLLECTION BY BRUSHING/ WASHING - FLEXI BLE N/A 06/06/2020 Performed by Bao Hernández MD at [facility] ANGIOGRAPHY CORONARY ARTERY WITH RIGHT AND LEFT HEART CATHETERIZATION N/A Performed by Higinio Clarke MD at [facility] POSSIBLE PERCUTANEOUS CORONARY STENT PLACEMENT WITH ANGIOPLASTY N/A Performed by Higinio Clarke MD at [facility] Family History Problem Relation Age of Onset COPD Mother Social History Socioeconomic History Marital status: Life Partner Spouse name: Not on file Number of children: 3 Years of education: Not on file Highest education level: Not on file Occupational History Not on file Tobacco Use Smoking status: Never Smoker Smokeless tobacco: Never Used Substance and Sexual Activity Alcohol use: Not Currently Drug use: Never Sexual activity: Not Currently Other Topics Concern Not on file Social History Narrative Not on file Objective: Allergies: No Known Allergies Medications: Scheduled Meds:cefTRIAXone (ROCEPHIN) IVP 2 g, 2 g, Intravenous, Q24H* fluticasone propionate (FLONASE) nasal spray 1 spray, 1 spray, Each Nostril, BID levothyroxine (SYNTHROID) tablet 75 mcg, 75 mcg, Oral, QDAY 30 min before breakf ast pantoprazole (PROTONIX) injection 40 mg, 40 mg, Intravenous, BID(02-11) sertraline (ZOLOFT) tablet 100 mg, 100 mg, Oral, QDAY Continuous Infusions: amiodarone (CORDARONE) 360 mg in dextrose, iso-osm 200 mL infusion 0.5 mg/mi n (10/22/20211) PRN and Respiratory Meds:acetaminophen Q4H PRN, aluminum/magnesium hydroxide Q4H PRN, docusate QDAY PRN, fentaNYL citrate PF Q5 MIN PRN, fentaNYL citrate PF Q5 MIN PRN, fentaNYL citrate PF Q5 MIN PRN, nitroglycerin Q5 MIN PRN, ondansetron Q 6H PRN, promethazine Q6H PRN, promethazine Q10 MIN PRN Medications Prior to Admission Medication Sig Dispense Refill Last Dose ascorbic acid (VITAMIN C) 500 mg tablet Take 500 mg by mouth daily. bumetanide (BUMEX) 2 mg tablet Take 2.5 tablets by mouth twice daily. 150 ta blet 3 10/19/2020 calcium carbonate (OS-KRUPA) 1250 mg tablet Take 1,250 mg by mouth daily. enoxaparin (LOVENOX) 60 mg syringe Inject 0.6 mL under the skin every 12 miguel rs for 10 days. 20 each 0 10/19/2020 ergocalciferol (VITAMIN D-2) 1,250 mcg (50,000 unit) capsule Take 1 capsule by mouth every 7 days. 10/19/2020 FERROUS GLUCONATE PO Take 37.5 mg by mouth every 48 hours. 10/19/2020 fluticasone propionate (FLONASE) 50 mcg/actuation nasal spray, suspension Ap ply to each nostril as directed daily. Shake bottle gently before using. Unkn own levothyroxine (SYNTHROID) 75 mcg tablet Take 75 mcg by mouth daily 30 minute s before breakfast. 10/19/2020 metOLazone (ZAROXOLYN) 2.5 mg tablet Take one tablet by mouth twice weekly. Take on Friday and Friday. When directed, take 30-60 minutes prior to your Bumex. 40 tablet 1 Past Week metoprolol tartrate (LOPRESSOR) 25 mg tablet Take one-half tablet by mouth t wice daily. 90 tablet 3 10/19/2020 ondansetron (ZOFRAN) 4 mg tablet Take 4 mg by mouth every 8 hours as needed for Nausea or Vomiting. Unknown pantoprazole DR (PROTONIX) 40 mg tablet Take one tablet by mouth daily. Blanquita cations: indigestion, gastroesophageal reflux disease, heartburn, bleeding from stomach, esophagus or duodenum 90 tablet 0 Unknown potassium chloride SR (K-DUR) 20 mEq tablet Take 20 mEq by mouth twice daily . Take with a meal and a full glass of water. 10/19/2020 promethazine (PHENERGAN) 25 mg tablet Take 25 mg by mouth as Needed for Naus ea or Vomiting. Unknown sertraline (ZOLOFT) 100 mg tablet Take 100 mg by mouth daily. spironolactone (ALDACTONE) 100 mg tablet Take one tablet by mouth daily for 360 days. Take with food. 90 tablet 3 10/19/2020 VASCEPA 1 gram capsule TAKE 2 CAPSULES BY MOUTH TWICE DAILY WITH MEALS 09/22 warfarin (COUMADIN) 2.5 mg tablet Take one tablet by mouth daily. Take as di rected by physician managing INR. (Patient taking differently: Take 5 mg by mout h daily. Take as directed by physician managing INR.) 30 tablet 0 Past Week Vital Signs: Last Filed Vital Signs: 24 Hour Range BP: 97/66 (10/22 599) Temp: 36.1 C (97 F) (10/22 450) Pulse: 99 (10/22 599) Respirations: 20 PER MINUTE (10/22 450) SpO2: 96 % (10/22 599) SpO2 Pulse: 96 (10/22 599) Height: 157.5 cm (5' 2.01") (10/21 09) BP: (93-127)/(56-84) Temp: [36.1 C (97 F)-37.1 C (98.7 F)] Pulse: [93-116] Respirations: [17 PER MINUTE-33 PER MINUTE] SpO2: [91 %-100 %] Intensity Pain Scale (Self Report): 5 (10/21/202114) Wt Readings from Last 10 Encounters: 10/21/20 61.7 kg (136 lb 0.4 oz) 10/12/20 61.7 kg (136 lb) 09/07/20 61.2 kg (135 lb) 08/24/20 60.6 kg (133 lb 9.6 oz) 08/22/20 59.9 kg (132 lb) 08/03/20 66 kg (145 lb 9.6 oz) 08/01/20 68.2 kg (150 lb 6.4 oz) 07/18/20 66.5 kg (146 lb 9.6 oz) 07/10/20 69.8 kg (153 lb 12.8 oz) 07/07/20 69.4 kg (153 lb) Physical Exam: General Appearance: thin, appears stated age, appears fatigued. Skin: bruising on right forehead, right shoulder and right knee.Appears slightly jaundiced. Digits and Nails: no cyanosis or clubbing Eyes: conjunctivae and lids normal, pupils are equal and round Teeth/Gums/Palate: dentition unremarkable, no lesions Lips & Oral Mucosa: no pallor or cyanosis Neck Veins: JVP ~9cm, HJR positive Chest Inspection: chest is normal in appearance Respiratory Effort: breathing comfortably, no respiratory distress Auscultation/Percussion: lungs CTA Cardiac Rhythm: regular rhythm and tachycardiac rate Cardiac Auscultation: S1, S2 present but clear splitting not heard, no rub, no S 3 gallop, no S4 gallop Murmurs:grade ii/vi systolic murmur at RSB Radial Arteries: normal symmetric radial pulses Pedal Pulses: normal symmetric pedal pulses Lower Extremity Edema:nolower extremity edema Peripheral Circulation: distal upper and lower extremities warm Abdominal Exam: soft, non-tender, no masses, bowel sounds normal Liver & Spleen: no hepatosplenomegaly Muscle Strength: normal muscle tone Orientation: oriented to time, place and person Affect & Mood: appropriate and sustained affect Language and Memory: patient responsive and seems to comprehend information Neurologic Exam: neurological assessment grossly intact and moves all extremitie s Laboratory Review: CBC w diff Lab Results Component Value Date/Time WBC 10.0 10/22/2020 03:12 AM RBC 2.26 (L) 10/22/2020 03:12 AM HGB 7.2 (L) 10/22/2020 03:12 AM HCT 20.9 (L) 10/22/2020 03:12 AM MCV 92.3 10/22/2020 03:12 AM MCH 31.8 10/22/2020 03:12 AM MCHC 34.4 10/22/2020 03:12 AM RDW 16.7 (H) 10/22/2020 03:12 AM PLTCT 124 (L) 10/22/2020 03:12 AM MPV 7.6 10/22/2020 03:12 AM Lab Results Component Value Date/Time NEUT 79 (H) 08/24/2020 09:19 AM ANC 4.01 08/24/2020 09:19 AM LYMA 10 (L) 08/24/2020 09:19 AM ALC 0.49 (L) 08/24/2020 09:19 AM TINY 10 08/24/2020 09:19 AM AMC 0.49 08/24/2020 09:19 AM EOSA 0 08/24/2020 09:19 AM AEC 0.01 08/24/2020 09:19 AM BASA 1 08/24/2020 09:19 AM ABC 0.03 08/24/2020 09:19 AM Chemistry Lab Results Component Value Date/Time NA 137 10/22/2020 03:12 AM K 3.3 (L) 10/22/2020 03:12 AM CL 101 10/22/2020 03:12 AM CO2 23 10/22/2020 03:12 AM GAP 13 (H) 10/22/2020 03:12 AM BUN 50 (H) 10/22/2020 03:12 AM CR 1.91 (H) 10/22/2020 03:12 AM GLU 181 (H) 10/22/2020 03:12 AM GLU 143 (H) 07/28/2020 09:45 AM Lab Results Component Value Date/Time CA 8.3 (L) 10/22/2020 03:12 AM PO4 3.3 10/20/2020 05:12 PM ALBUMIN 3.1 (L) 10/22/2020 03:12 AM TOTPROT 5.4 (L) 10/22/2020 03:12 AM ALKPHOS 51 10/22/2020 03:12 AM AST 23 10/22/2020 03:12 AM ALT 10 10/22/2020 03:12 AM TOTBILI 0.8 10/22/2020 03:12 AM GFR 27 (L) 10/22/2020 03:12 AM GFRAA 33 (L) 10/22/2020 03:12 AM Renal Function Lab Results Component Value Date/Time NA 137 10/22/2020 03:12 AM K 3.3 (L) 10/22/2020 03:12 AM CL 101 10/22/2020 03:12 AM CO2 23 10/22/2020 03:12 AM GAP 13 (H) 10/22/2020 03:12 AM BUN 50 (H) 10/22/2020 03:12 AM BUN 46 (H) 10/21/2020 05:15 AM BUN 40 (H) 10/20/2020 05:12 PM Lab Results Component Value Date/Time CR 1.91 (H) 10/22/2020 03:12 AM CR 1.72 (H) 10/21/2020 05:15 AM CR 1.35 (H) 10/20/2020 05:12 PM GLU 181 (H) 10/22/2020 03:12 AM GLU 143 (H) 07/28/2020 09:45 AM CA 8.3 (L) 10/22/2020 03:12 AM PO4 3.3 10/20/2020 05:12 PM ALBUMIN 3.1 (L) 10/22/2020 03:12 AM Lipid Profile INR No results found for: CHOL, TRIG, HDL, LDL, VLDL, NONHDLCHOL, CHOLHDLC Lab Results Component Value Date INR 3.1 (H) 10/22/2020 Chest X-Ray: Tele/ECG: ST 100 Echocardiogram Details: Echo Results (Last 3 results in the past 3 years) Echo EF LVIDD LA Size IVS LVPW Rest PAP (10/21/20) 60 (10/21/20) 4.46 (10/21/20) 5.96 (10/21/20) 1.21 (10/21/20) 1.16 (10/21/20) 79 (05/22/20) 60 (05/22/20) 4.31 (05/22/20) 6.56 (05/22/20) 1.21 (05/22/20) 1.30 (05/22/20) 64 Associated attestation - Shanell Ybarra DO - 10/22/2020 3:09 PM CDT Cardiology Staff Physician Attestation Zaria Paulson is a 60 y.o. female who reports feeling better overall. She was found to have dieulafoy lesions s/p clipping. No more afib. Received total 5 un its of PRBC and one unit of FFP. HR in 100 range BP 102/61 | Pulse 93 | Temp 36.6 C (97.8 F) | LMP (LMP Unknown) | SpO2 100% On examination the cardiac rhythm is regular. JVP is 20cm, and extremities +1ed sonia. Recent labs, radiology and other diagnostics studies were reviewed. INR 3.1 Hgb 7.2 Cr 1.8 My impression is s/p mechanical AVR, RV failure, severe TR, group II pulmonary h tn, GI bleed due to Dieulafoy lesion s/p clipping Plan: Bumex 2mg IV TID, resume low dose warfarin when safe from GI standpoint, continu e protonix I have personally interviewed and examined the patient, have reviewed the medica l record & all pertinent medical documentation including the history, physical, & impression, and jointly formulated the treatment plan as outlined by the IMMIGRATION JUDGE The Complexity of medical decision making is high due to the multi-system diseas es present and the complexity and acuity of the pt's current clinical status wit h concerns including but not limited to complexity/severity and gravity of the p atient's underlying cardiac illnesses and interplay of other issues. I personally interviewed and examined the patient. I have examined the patient, reviewed the history, physical impression and plan outlined by the resident, mode and agree with my edits as outlined below. Staff alternative energy engineer: DO Jalen Jaimes Nizar T, MD - 10/22/2020 12:43 AM CDT Gastroenterology/Hepatology Progress Note Subjective: Patient underwent flexible sigmoidoscopy that showed an actively bleeding Alexia song lesion in the sigmoid colon. This was successfully treated with epinephrine , coagulation and clipping She denies any complaints She reports decreased volume of blood in the stool. She received 1 unit of bloo d today her hemoglobin dropped from 7.2 to 6.7 and repeat hemoglobin is 7.9 Objective/PE: Vitals: 10/23/20 0000 BP: (!) 87/63 Pulse: 88 Temp: SpO2: 97% General: Alert and oriented. Appears comfortable Cardiac: + Murmur Lungs: No wheezes or crackles Abdomen: Soft, nontender, nondistended, with positive bowel sounds MSK: No LE edema Neuro/psych: Alert & oriented X 3. No asterixis Significant Labs: Recent Labs 10/20/20 0907 10/20/20 1529 10/20/20 17110/20/20 17110/21/20 0515 10/21/20 0515 10/22/20311 NA 133* < > 134* -- 135* -- 137 K 2.9* < > 3.8 < > 4.1 < > 3.3* BUN 42* < > 40* -- 46* -- 50* CR 1.32* < > 1.35* -- 1.72* -- 1.91* GLU 136* < > 132* -- 141* -- 181* CA 8.4* < > 8.3* -- 8.1* -- 8.3* AST -- -- 24 -- 27 -- 23 ALT -- -- 11 -- 11 -- 10 ALKPHOS -- -- 58 -- 55 -- 51 ALBUMIN -- -- 3.1* -- 3.0* -- 3.1* MG 1.8 -- 1.8 -- -- -- 2.0 PO4 -- -- 3.3 -- -- -- -- < > = values in this interval not displayed. Recent Labs 10/20/20 0907 10/20/20 0913 10/20/20 1712 10/20/20 2215 10/21/20 0515 10/21/20 0950 10/21/20 1846 10/22/20 0312 10/22/20 1234 10/22/20205810/22/20 2317 WBC 7.8 -- 11.0 11.7* 10.3 -- 10.1 10.0 9.8 9.2 -- HGB 5.9* -- 6.1* 7.2* 6.6* -- 7.2* 7.2* 6.7* 7.7* 7.9* HCT 17.0* -- 17.6* 21.0* 19.0* -- 21.3* 20.9* 19.6* 22.4* 22.8* PLTCT 200 -- 197 171 173 -- 156 124* 119* 117* -- INR 3.2* 2.8* 3.1* -- 3.7* -- 3.7* 3.1* -- -- -- PTT -- -- 34.9 -- -- -- -- -- -- -- -- TNI -- -- 0.04 -- 0.04 0.04 -- -- -- -- -- MELD-Na score: 25 at 10/22/2020 3:12 AM MELD score: 25 at 10/22/2020 3:12 AM Calculated from: Serum Creatinine: 1.91 MG/DL at 10/22/2020 3:12 AM Serum Sodium: 137 MMOL/L at 10/22/2020 3:12 AM Total Bilirubin: 0.8 MG/DL (Rounded to 1 MG/DL) at 10/22/2020 3:12 AM INR(ratio): 3.1 at 10/22/2020 3:12 AM Age: 60 years 9 months Imaging: Impression/Assessment/Plan/Recommendations: Principal Problem: GI bleeding Active Problems: Chronic heart failure with preserved ejection fraction (HCC) Anemia Severe tricuspid regurgitation Aortic valve prosthesis present Chronic anticoagulation History of endocarditis Iron deficiency anemia Cirrhosis (HCC) Paroxysmal atrial fibrillation (HCC) Stage 3b chronic kidney disease (HCC) LEONORA (acute kidney injury) (HCC) Continue blood transfusion for target >7 and INR target ~2 Continue holding initiation of anticoagulation Resume clear liquid diet and if the patient does not have drop in her hemoglo bin will bleeding by tomorrow diet can be advanced Cosmo Gomez Gastroenterology/Transplant Hepatology * Jesus Senior MD - 10/22/2020 12:04 AM CDT Brief GI progress note Patient had EGD and flexible sigmoidoscopy tonight. Please see full procedure re port when finalized for further details. EGD without evidence of active or old bleeding. There was bilious fluid in the s tomach. No esophageal or gastric varices. Possible area of Castellanos's esophagus, but this was not biopsied given clinical context. Colon up to ~mid transverse had old blood throughout. After extensive irrigation and washing, there was an area of arterial oozing around 30 cm in the sigmoid c olon that was consistent with a dieulafoy lesion. This was treated with epinephr ine injection, bipolar cautery, and 2 hemoclips. There was successful hemostasis at end of procedure Recommendations - holding heparin for 24 hours and ok to resume if no further bleeding - trend CBC closely - continue antibiotics for SBP ppx - ok to stop octreotide and IV PPI - clear liquid diet for now * Maggi Salamanca RN - 10/21/2020 10:22 PM CDT Orders placed at 1926 for RBC's and soap suds enema. RN called and spoke with Dr Chrissy Senior who is the GI fellow in regards to RBC's as patient currently has octr eotide gtt, amiodarone and plasma infusing through all 3 IV's. Fellow states we may be able to hold off on octreotide and infuse RBC's. RN advised fellow that zane stokes does have heart failure and plasma is running at TACO rate of 85mL/hr. OK to start blood as soon as plasma is done as they would like to take patient down for scope at 2100. 1956: Patient was complaining of chest pressure and MPL was voalted. Vital signs stable at this time and per Dr. Yip OK to give tylenol. 1999: Soap suds enema given to patient. RN gave report to [facility] CHRYSTAL Caldwell. 2014: prepost nurse at bedside. Patient cleaned up and taken off bedpad. 550ml o ut of bright red blood. Both RN's transported patient to Preop. Blood also relea sed at this time. 2029: Patient in PrePost. * Cosmo Gomez MD - 10/21/2020 5:35 PM CDT Gastroenterology/Hepatology Progress Note Subjective: Patient today reports having chest heaviness, dyspnea and sweating. She had ep isode of non-bloody bilious emesis, She completed 2 units overnight her hemoglobin increased to 7.2 and dropped agai n to 6.6. She continues to have blood in the stool. Her INR remains elevated a t 3.7 Rapid response team was called during her change in status Objective/PE: Vitals: 10/21/20 1701 BP: 108/72 Pulse: Temp: 36.7 C (98.1 F) SpO2: General: Anxious appearing Cardiac: + Murmur Lungs: No wheezes or crackles Abdomen: Soft, nontender, nondistended, with positive bowel sounds MSK: No LE edema Neuro/psych: Alert & oriented X 3. No asterixis Significant Labs: Recent Labs 10/20/20 0907 10/20/20 0907 10/20/20 1529 10/20/20 1529 10/20/20 17110/20/20 17110/21/20 0515 NA 133* < > 132* -- 134* -- 135* K 2.9* < > 3.6 < > 3.8 < > 4.1 BUN 42* < > 40* -- 40* -- 46* CR 1.32* < > 1.28* -- 1.35* -- 1.72* GLU 136* < > 118* -- 132* -- 141* CA 8.4* < > 7.7* -- 8.3* -- 8.1* AST -- -- -- -- 24 -- 27 ALT -- -- -- -- 11 -- 11 ALKPHOS -- -- -- -- 58 -- 55 ALBUMIN -- -- -- -- 3.1* -- 3.0* MG 1.8 -- -- -- 1.8 -- -- PO4 -- -- -- -- 3.3 -- -- < > = values in this interval not displayed. Recent Labs 10/20/20 0907 10/20/20 0913 10/20/20 17110/20/20 2215 10/21/20 0515 10/21/20 0950 WBC 7.8 -- 11.0 11.7* 10.3 -- HGB 5.9* -- 6.1* 7.2* 6.6* -- HCT 17.0* -- 17.6* 21.0* 19.0* -- PLTCT 200 -- 197 171 173 -- INR 3.2* 2.8* 3.1* -- 3.7* -- PTT -- -- 34.9 -- -- -- TNI -- -- 0.04 -- 0.04 0.04 MELD-Na score: 27 at 10/21/2020 5:15 AM MELD score: 26 at 10/21/2020 5:15 AM Calculated from: Serum Creatinine: 1.72 MG/DL at 10/21/2020 5:15 AM Serum Sodium: 135 MMOL/L at 10/21/2020 5:15 AM Total Bilirubin: 0.8 MG/DL (Rounded to 1 MG/DL) at 10/21/2020 5:15 AM INR(ratio): 3.7 at 10/21/2020 5:15 AM Age: 60 years 9 months Imaging: Impression/Assessment/Plan/Recommendations: Principal Problem: GI bleeding Active Problems: Chronic heart failure with preserved ejection fraction (HCC) Anemia Severe tricuspid regurgitation Aortic valve prosthesis present Chronic anticoagulation History of endocarditis Iron deficiency anemia Cirrhosis (HCC) Paroxysmal atrial fibrillation (HCC) Stage 3b chronic kidney disease (HCC) LEONORA (acute kidney injury) (HCC) Continue blood transfusion for target >7 and INR target ~2 We will proceed with EGD/sigmoidoscopy once above parameters were reached and depending on clinical status Cosmo Gomez Gastroenterology/Transplant Hepatology * Rachael Mehta RN - 10/21/2020 4:01 PM CDT Follow up from RR performed. Pt resting comfortably with family at bedside. Pt s tates feeling slightly better. Pt expresses episodes of nausea and vomiting. VS stable, SBP 120s, SpO2 98% on RA, HR ~80-90s. PRBC infusing. Encouraged pt and R N to call for any needs or concerns. * Duyen Arroyo DO - 10/21/2020 8:23 AM CDT General Progress Note Name: Zaria Paulson Today's Date: 10/21/2020 Admission Date: 10/20/2020 LOS: 1 day Assessment/Plan: Principal Problem: GI bleeding Active Problems: Chronic heart failure with preserved ejection fraction (HCC) Anemia Severe tricuspid regurgitation Aortic valve prosthesis present Chronic anticoagulation History of endocarditis Iron deficiency anemia Cirrhosis (HCC) Paroxysmal atrial fibrillation (HCC) Stage 3b chronic kidney disease (HCC) Zaria Paulson is a 60 y.o. female with history of liver cirrhosis, HFpEF, SHANTANU M, S/P mechanical aortic valve on coumadin, atrial fibrillation and previously t reated non-Hodgkin's lymphoma who presented to the hospital for implantation of CardioMEMs but was found to be severely anemia and is now being admitted to the medicine for acute GI bleeding. Acute GI bleed Acute blood loss anemia worsening chronic iron deficiency anemia - Given bright red stool with clots, concern for colonic source, possibly anothe r AVM but given drop in Hb and BP, as well as nausea, upper GI source cannot be ruled out. It would be unusual for varices to develop over months, but defer to hepatology. - Hepatology consulted, recs appreciated - Last iron infusion in August 2020. EGD in May 2020 essentially normal. C-scope in May 2020 with angiectasia, treated with argon plasma. - IV PPI BID, IV octreotide, IV rocephin - NPO at midnight for EGD and flex sig today, will need enema prior to flexsig - Transfuse to keep Hb>7 - S/p 3 units transfused thus far, FFP ordered as she continues to have bloody s tools - Potentially to have EGD/flex sig at bedside if patient were to transfer to ICU Chronic HFpEF without acute exacerbation Pulmonary HTN with chronic cor pulmonale Paroxysmal atrial fibrillation with RVR - Originally presented for CardioMEMs implantation, procedure deferred for now - Hold [employer] aldactone, bumex, metolazone, metoprolol due to severe hypotension as sociated with GI bleeding - Monitor closely for resuming as BP allows. BB should be restarted first for moran ppression of atrial tachycardia -10/20 rapid responded due to A. fib with RVR in the setting of hypotension, was given IV push metoprolol and started on amiodarone infusion -10/21 patient continues to go in and out of A. fib with RVR on amiodarone infusi on, beta-gulshan limited due to hypotension - Heart failure consulted, case discussed and they feel that patient should go t o the ICU however after discussion and eval by ICU team, they feel patient can s mauri on floor for now - Echo in May 2020 with EF 60% and abnormal septal motion from right ventricle pressure overload. Right ventricle contractility was assumed normal. Mechanical aortic valve - Open heart surgery at age 16 in 1975 for aortic valve repair. Developed CHF an d underwent bioprosthetic valve placement in 1997. Subsequently had failed biopr osthetic valve and underwent mechanical valve placement in 2010. - On coumadin at home with recent hold for procedure with lovenox bridging. Last dose of lovenox 10/19 PM. - INR on admission 3.7 10/21 - Hold INR reversal for now given mechanical valve. HF following, did order 1 un it of FFP due to continued bleeding Liver cirrhosis - Likely from chemotherapy for NHL - Hepatology following. CKD Stage III Hypokalemia, resolved - sCr. Near baseline, hypokalemia likely from GI losses - Renal function might worsen due to acute blood loss anemia Hyponatremia -mild, improving NHL - Appears to be in remission IVF: none Nutrition: NPO VTE prophylaxis: SCDs only Code Status: Full code Disposition: Admit to medicine for further evaluation and management of principl e problem Duyen Arroyo, DO Internal Medicine Med Private L Total time spent was greater than 35 minutes of which greater than 50% was spent [id number] with the patient in care coordination (reviewing the records, angelal nieves, documentation, discussion with the nurse, case repairer and the social work , discussion with medical economics consultant services) and bedside counseling. Subjective Zaria Paulson is a 60 y.o. female. Patient doing better this AM. States no l onger having chest pain. Didn't sleep well last night. Has had only 1 bloody sto ol since admission. ROS: Denies chest pain and SOB. No abdominal pain. No N/V. No fever or chills. H aving BRBPR. Medications Scheduled Meds:cefTRIAXone (ROCEPHIN) IVP 2 g, 2 g, Intravenous, Q24H* fluticasone propionate (FLONASE) nasal spray 1 spray, 1 spray, Each Nostril, BID levothyroxine (SYNTHROID) tablet 75 mcg, 75 mcg, Oral, QDAY 30 min before breakf ast pantoprazole (PROTONIX) injection 40 mg, 40 mg, Intravenous, BID(02-11) sertraline (ZOLOFT) tablet 100 mg, 100 mg, Oral, QDAY Continuous Infusions: amiodarone (CORDARONE) 360 mg in dextrose, iso-osm 200 mL infusion Stopped ( 10/21/20 0243) octreotide (SandoSTATIN) 500 mcg in sodium chloride 0.9% (NS) 100 mL IV drip (std conc) 50 mcg/hr (10/21/20 0118) PRN and Respiratory Meds:acetaminophen Q4H PRN, aluminum/magnesium hydroxide Q4H PRN, docusate QDAY PRN, nitroglycerin Q5 MIN PRN, ondansetron Q6H PRN, prometha zine Q6H PRN Objective: Vital Signs: Last Filed Vital Signs: 24 Miguel r Range BP: 97/61 (10/22 807) Temp: 36.2 C (97.2 F) (10/22 807) Pulse: 110 (10/22 807) Respirations: 24 PER MINUTE (10/22 807) SpO2: 100 % (10/22 807) SpO2 Pulse: 100 (10/21 06) BP: (83-115)/(48-84) Temp: [36.2 C (97.2 F)-37.1 C (98.8 F)] Pulse: [74-129] Respirations: [12 PER MINUTE-33 PER MINUTE] SpO2: [96 %-100 %] There were no vitals filed for this visit. Intake/Output Summary: (Last 24 hours) Intake/Output Summary (Last 24 hours) at 10/21/2020 0823 Last data filed at 10/21/2020 0545 Gross per 24 hour Intake 1560.17 ml Output 1310 ml Net 250.17 ml Stool Occurrence: 1 Physical Exam Gen: appears comfortable on RA HEENT: AT/NC. No scleral icterus, EOM grossly intact. Ears/nose grossly normal. Moist mucous membranes Cardiovascular: Regular rhythm, rate in the low 90s, normal s1s2, holosystolic m echanical murmur Respiratory: Normal respiratory effort, CTAB Gastrointestinal: Non-distended soft abdomen, bowel sounds present, no peritonea l signs Musculoskeletal: Spontaneously moves all extremities Extremities: No edema Skin: Dry Neurological: A&O x3. Grossly non-focal Psychiatry: Mood and affect congruent Lab Review Pertinent labs reviewed Point of Care Testing (Last 24 hours) Glucose: (!) 141 (10/21/20 0515) POC Glucose (Download): (!) 152 (10/20/20 1711) Radiology and other Diagnostics Review: Pertinent radiology reviewed., EKG Reviewed Duyen Arroyo DO * Miracle Dennison RN - 10/20/2020 6:34 PM CDT Pt transported to [facility] on bedside monitor following Rapid response. Bedside rep ort and update to provided to primary RN. Pt transport with second unit of blood infusing at 85ml/hr. * Javi Tillman MD - 10/20/2020 5:18 PM CDT Called to RR d/t increased HR and dyspnea. BP is doing better compared to admit (currently 110/59). At baseline she is in the 90/50's. She denies feeling short of breath, but feels she is going to vomit. She had clear-yellow, bilious vomi ting. On exam she has a reg rhythm which is quite tachycardic (151 bpm). It ap pears sinus on tele, but is A fib w/ RVR on EKG (rate of 150bmp, along w/ her ch ronic RBBB. She is currently getting ready to start her 2nd unit of PRBC. Her diuretics and metoprolol are on hold since admit d/t lower BP readings on admit along w/ acute GI bleed. 5mg IV metoprolol and 40mg IV lasix ordered. Metoprolo l improved her HR (now 100 bpm on repeat EKG after), MAP of 66. Trop negative. Again her baseline MAP seems to be 62-68. My concern is that repeat beta blocke rs are going to lower her BP more. Will start on amio gtt. Will place pinon along w/ diuretics given that the pt is not able to move very i ndependently. 34 min spent in critical care time today w/ review of vitals, EKG, and labs as w ell as medication management. Javi Tillman MD, FACP [facility], [facility] Medicine Pager: [phone] * Yahaira Hewitt RN - 10/20/2020 5:09 PM CDT Rapid Response called. * Miracle Dennison RN - 10/20/2020 5:08 PM CDT Rapid response called prior to starting pts second unit of blood. Pt found to be tachycardic in the 130s, diaphoretic, and stating "her chest feels heavy". See rapid response note for more information. * Miracle Dennison RN - 10/20/2020 10:00 AM CDT On arrival to [facility] pt mentioned she had been experiencing bloody stools starting around Friday10/17/20. CBC, CMP, and INR completed. Critical lab hgb 5.9, K+ 2 .9, POC INR 2.8. Crissy FRIEND notified. Pt procedure canceled. 1100- Pt Bp down 83/54, orders for 250ml bolus NS given. Orders placed for K+ re placement 1130- Pt had large monica red liquid bowel movement. Orders for type & cross and confirmation. 1500- Pt had additional large red liquid bowel movement, 250 mL. Provider Vijaya Millard notified. * Miracle Dennison RN - 10/20/2020 8:46 AM CDT Patient arrived on unit via wheelchair accompanied by RN. Patient transferred to the bed with assistance. Frailty score equals 5 Assessment completed, refer to flowsheet for details. Orders released, reviewed, and implemented as appropriat e. Oriented to surroundings, call light within reach. Plan of care reviewed. Wi ll continue to monitor and assess. * Crissy Gould PA-C - 10/20/2020 7:54 AM CDT Zaria Paulson is a 60 y.o. female with heart failure with preserved ejection fraction, nonischemic cardiomyopathy,s/paortic valve replacement x3 (on court abstractor shantanu anticoagulation for mechanical valve),paroxysmal atrial fibrillation, hy pertension, previous endocarditis,iron deficiency anemia (IV iron given), court abstractor shantanu kidney disease,hypothyroidism, depression, non-Hodgkins lymphoma and cirrh osis (etiology secondary to chemotherapy from treatment with non-Hodgkin lymphom a). She was hospitalized 05/2020 for heart failure.Her echocardiogram revealedan LVEF 60% with severe tricuspid regurgitation, anestimatedPApressure of 64 mmHg, and markedly elevated central venous pressure. A right and left heart cath eterization showedRA 20, PA 49/24 with a mean of 32, pulmonary capillary wedge pressure 25, PA saturation 79%, RA saturation 81%, thermal cardiac output 5.33, with index 3.18, Yg cardiac output 9.2 with cardiac index 5.5and overallm inimal nonobstructive coronary artery disease.CT revealed cardiomegaly with mi ld pulmonary edema and moderate bilateral pleural effusions compatible with CHF/ volume overload.She was diuresed and discharged.Her goal dry weight is 135 p ounds. Has had ongoing increased shortness of breath, orthopnea and abdominal b loating with variable weights. She was felt to be a candidate for implantation of a CardioMEMS device and presented for this procedure today. On admission, patient reported having a lot of blood in her stool recently. She reports it is bright red blood and she feels some urgency to have a bowel movem ent but her stools are not loose. She denies diarrhea but she has been having n ausea and vomiting. Hemoglobin on admission 5.9, down from 11.6 last week. She has reportedly been holding warfarin since Saturday 10/14 and was started on Juanpablo enox which she has continued, last dose yesterday. She reports an INR has not b een checked this week. INR on admission was 2.8. K is also low at 2.9IV and oral potassium ordered. Patient will be admitted to an internal medicine team. Dr. Carlos Longo was notified. Review of records reveal she did have an EGD in May which was unremarkable and colonoscopy which revealed angio ectasia of si gmoid colon, treated with argon plasma. She also had some diverticuli and nonbl eeding hemorrhoids. Crissy Gould PA-C Interventional Cardiology Pager [phone] * Adriana Leblanc RN - 10/19/2020 9:14 AM CDT Cardiovascular Labs Scheduling Checklist 1. Date of procedure:10/20 2. Arrival time: 0900 3. Patient instructed NPO after MN; clear liquids until: 0800 4. Instructed to check-in at the [facility] registration desk and bring phot o id, insurance cards and a current list of home medications. Pack an overnight bag in the event you are admitted overnight: Y 5. If you have a history of sleep apnea and use a C-Pap or Bi-Pap machine, pleas e bring it with you to the hospital: N 6. Have a otr hazmat company driver available upon discharge as you may not be cleared to drive for 24 or 48 hours post procedure. (exception is RHC/biopsy patient with internal j ugular approach not receiving sedation): Y 7. If the patient's language preference is other than [place], please indicated [place] language and need for human resources benefits coordinator: N 8. Patient instructed to drink 64 oz water the day before their procedure if kirti licable and not contraindicated: N 9. Patient instructed no caffeine for 24 hours before procedure: Y 10. Pre-procedure medications reviewed: Y-PER PRE PROC INSTRUCTIONS 10/06 Hold the following Medications: Continue to take the followin. General Anesthesia/MAC and/or PVC ablations: Type and Cross required: N 12. Contrast allergy with need for contrast allergy prophylaxis: N 13. Patient instructed to bath with antibacterial soap or surgical scrub: Y 14. List all same day pre-procedure requirements, i.e. Labs/H&P/EKG:N 15. List any same day pre-procedure appointments:N 16. List any isolation precautions and organism:N 17. List any special considerations: N 18. Patient instructed to prepare for delays as there may be urgent or emergent cases: Y 19. Updated visitor guidelines reviewed (1 visitor allowed in [facility]: must wear a mask, Not permitted to stay the night and must leave by 1800): Y 20. Patient acknowledges understanding of pre-procedure instructions: COVID SWAB COMPLETE PER PATIENT REPORT documented in this encounter H&P Notes * Vijaya Millard MD - 10/20/2020 12:21 PM CDT Admission History and Physical Examination Name: Zaria Paulson 1 Admission Date: 10/20/2020 Assessment/Plan: Zaria Paulson is a 60 y.o. female with history of liver cirrhosis, HFpEF, SHANTANU M, S/P mechanical aortic valve on coumadin, atrial fibrillation and previously t reated non-Hodgkin's lymphoma who presented to the hospital for implantation of CardioMEMs but was found to be severely anemia and is now being admitted to the medicine for acute GI bleeding. Acute GI bleed Acute blood loss anemia worsening chronic iron deficiency anemia - Given bright red stool with clots, concern for colonic source, possibly anothe r AVM but given drop in Hb and BP, as well as nausea, upper GI source cannot be ruled out. It would be unusual for varices to develop over months, but defer to hepatology. - Hepatology consulted, recs appreciated - IV PPI BID, IV octreotide, IV rocephin CLD for now - NPO at midnight for EGD and flex sig tomorrow. No need for bowel prep, will ad director energy enema tomorrow - Transfuse to keep Hb>7, 2 units ordered for now. Patient consented - Last iron infusion in August 2020. EGD in May 2020 essentially normal. C-scope in May 2020 with angiectasia, treated with argon plasma. Chronic HFpEF without acute exacerbation Pulmonary HTN with chronic cor pulmonale - Originally presented for CardioMEMs implantation, procedure deferred for now - Hold [employer] aldactone, bumex, metolazone, metoprolol due to severe hypotension as sociated with GI bleeding - Monitor closely for resuming as BP allows. BB should be restarted first for moran ppression of atrial tachycardia - Weight has been stable around 130 lb per patient, which is her target dry weig ht. - Consult heart failure for co-management of this complicated case. - Echo in May 2020 with EF 60% and abnormal septal motion from right ventricle pressure overload. Right ventricle contractility was assumed normal. Mechanical aortic valve - Open heart surgery at age 16 in 1975 for aortic valve repair. Developed CHF an d underwent bioprosthetic valve placement in 1997. Subsequently had failed biopr osthetic valve and underwent mechanical valve placement in 2010. - On coumadin at home with recent hold for procedure with lovenox bridging. Last dose of lovenox 10/19 PM. - INR on admission 3.2, POC 2.8 - Hold INR reversal for now given mechanical valve. HF consult to guide further therapy. Liver cirrhosis - Likely from chemotherapy for NHL - Hepatology consulted. CKD Stage 2 Hypokalemia - Creat at baseline, hypokalemia likely from GI losses - Replace K Hyponatremia - Likely hypovolemic as volume depleted on exam. NHL - Appears to be in remission DVT Px - SCDs only due to active bleeding. Disposition - Full CPR - Discussed with patient. - Admit to [facility] with hepatology and heart failure consults. Total 70 minutes spent in patient care performing history and physical, clarifyi ng medical history, reviewing prior visits with patient, checking facts, reviewi ng recommendations, placing orders for admission, 35 minutes were spent in couns eling and coordination of care. An additional 40 minutes were spent reviewing records in [facility] and prior hospital izations, clinic visit notes and labs and imaging results. __ Primary Care Physician: Garfield Gray Verified Chief Complaint: Bright red blood per rectum. History of Present Illness: Zaria Paulson is a 60 y.o. female with history of liver cirrhosis, HFpEF, NICM, S/P mechanical aortic valve on coumadin, atrial f ibrillation and previously treated non-Hodgkin's lymphoma who [facility] but was found to be severely anemia and i s now being admitted to the medicine for acute GI bleeding. Patient was seen an d evaluated in [facility]. She sitting up in bed appearing comfortable and a little bi t pale. She reports feeling actually better than she had over the past few days with some fluid resuscitation. She reports that she started having bloody bowel movements this past Friday. She continued to have multiple episodes in a day but thought that she was having some hemorrhoidal bleeding. She presented as u sual for her procedure today and given her anemia, the concern for ongoing GI bl eeding was raised. She last received iron infusion in August 2020. She is denyin g any abdominal pain. She had some mild nausea prior to arrival but is not feel ing nauseated at this time. She is denying any lightheadedness or dizziness at rest but the nurse did report that she was lightheaded when she got her up [facility] er in the day. Blood pressure tends to run low and the numbers and of themselve s are not unusual for her. She took her last dose of Lovenox yesterday evening. No fever. No chills. No changes in urinary output. Weight has been stable at 130 at home. No headache or vision changes. Medical History: Diagnosis Date Cancer (HCC) Non- hodgkins lymphoma, chemo Disorder of thyroid gland Hypertension Iron deficiency anemia 08/03/2020 Iron deficiency anemia 08/03/2020 Surgical History: Procedure Laterality Date AORTIC VALVE REPLACEMENT 05/2009 mechanical ESOPHAGOGASTRODUODENOSCOPY WITH BIOPSY - FLEXIBLE N/A 06/06/2020 Performed by Bao Hernández MD at [facility] COLONOSCOPY DIAGNOSTIC WITH SPECIMEN COLLECTION BY BRUSHING/ WASHING - FLEXI BLE N/A 06/06/2020 Performed by Bao Hernández MD at [facility] ANGIOGRAPHY CORONARY ARTERY WITH RIGHT AND LEFT HEART CATHETERIZATION N/A Performed by Higinio Clarke MD at [facility] POSSIBLE PERCUTANEOUS CORONARY STENT PLACEMENT WITH ANGIOPLASTY N/A Performed by Higinio Clarke MD at [facility] Family History Problem Relation Age of Onset COPD Mother Social History Socioeconomic History Marital status: Life Partner Spouse name: Not on file Number of children: 3 Years of education: Not on file Highest education level: Not on file Occupational History Not on file Tobacco Use Smoking status: Never Smoker Smokeless tobacco: Never Used Substance and Sexual Activity Alcohol use: Not Currently Drug use: Never Sexual activity: Not Currently Other Topics Concern Not on file Social History Narrative Not on file Immunizations (includes history and patient reported): Immunization History Administered Date(s) Administered Flu Vaccine Quadrivalent Recombinant =>18 YO PF 05/25/2019 Pneumococcal Vaccine (23-Angelique Adult) 03/05/2018 Pneumococcal Vaccine(13-Angelique Peds/immunocompromised adult) 11/21/2017 Allergies: Patient has no known allergies. Medications: Prior to Admission Medications Prescriptions Last Dose Informant Patient Reported? Taking? FERROUS GLUCONATE PO 10/19/2020 Yes No Sig: Take 37.5 mg by mouth every 48 hours. VASCEPA 1 gram capsule 10/19/2020 Self Yes No Sig: TAKE 2 CAPSULES BY MOUTH TWICE DAILY WITH MEALS ascorbic acid (VITAMIN C) 500 mg tablet 10/19/2020 Self Yes No Sig: Take 500 mg by mouth daily. bumetanide (BUMEX) 2 mg tablet 10/19/2020 No No Sig: Take 2.5 tablets by mouth twice daily. calcium carbonate (OS-KRUPA) 1250 mg tablet 10/19/2020 Self Yes No Sig: Take 1,250 mg by mouth daily. enoxaparin (LOVENOX) 60 mg syringe 10/19/2020 No No Sig: Inject 0.6 mL under the skin every 12 hours for 10 days. ergocalciferol (VITAMIN D-2) 1,250 mcg (50,000 unit) capsule 10/19/2020 Self Yes No Sig: Take 1 capsule by mouth every 7 days. fluticasone propionate (FLONASE) 50 mcg/actuation nasal spray, suspension Unknow n Self Yes No Sig: Apply to each nostril as directed daily. Shake bottle gently before using. levothyroxine (SYNTHROID) 75 mcg tablet 10/19/2020 Self Yes No Sig: Take 75 mcg by mouth daily 30 minutes before breakfast. metOLazone (ZAROXOLYN) 2.5 mg tablet Past Week No No Sig: Take one tablet by mouth twice weekly. Take on Friday and Friday. Whe n directed, take 30-60 minutes prior to your Bumex. metoprolol tartrate (LOPRESSOR) 25 mg tablet 10/19/2020 No No Sig: Take one-half tablet by mouth twice daily. ondansetron (ZOFRAN) 4 mg tablet Unknown Yes No Sig: Take 4 mg by mouth every 8 hours as needed for Nausea or Vomiting. pantoprazole DR (PROTONIX) 40 mg tablet Unknown No No Sig: Take one tablet by mouth daily. Indications: indigestion, gastroesophageal reflux disease, heartburn, bleeding from stomach, esophagus or duodenum potassium chloride SR (K-DUR) 20 mEq tablet 10/19/2020 Self Yes No Sig: Take 20 mEq by mouth twice daily. Take with a meal and a full glass of wate r. promethazine (PHENERGAN) 25 mg tablet Unknown Yes No Sig: Take 25 mg by mouth as Needed for Nausea or Vomiting. sertraline (ZOLOFT) 100 mg tablet Self Yes No Sig: Take 100 mg by mouth daily. spironolactone (ALDACTONE) 100 mg tablet 10/19/2020 No No Sig: Take one tablet by mouth daily for 360 days. Take with food. warfarin (COUMADIN) 2.5 mg tablet Past Week No No Sig: Take one tablet by mouth daily. Take as directed by physician managing INR. Patient taking differently: Take 5 mg by mouth daily. Take as directed by physic mg managing INR. Facility-Administered Medications: None Review of Systems: CONSTITUTIONAL: No weight loss, fever, chills. Reports weakness and fatigue. HEENT: Eyes: No visual loss, blurred vision, double vision or yellow sclerae. Ears, Nose, Throat: No hearing loss, sneezing, congestion, runny nose or sore t hroat. SKIN: No rash or itching. CARDIOVASCULAR: No chest pain, chest pressure or chest discomfort. No palpitati ons or edema. RESPIRATORY: No shortness of breath, cough or sputum. GASTROINTESTINAL: Anorexia and nausea. Bright red blood GENITOURINARY: No dysuria, no hematuria, no hesitancy, no urgency, no nocturia. NEUROLOGICAL: No headache, dizziness, syncope, paralysis, ataxia, numbness or t ingling in the extremities. No change in bowel or bladder control. MUSCULOSKELETAL: No muscle, back pain, joint pain or stiffness. HEMATOLOGIC: No anemia, bleeding or bruising. LYMPHATICS: No enlarged nodes. No history of splenectomy. PSYCHIATRIC: No history of depression or anxiety. ENDOCRINOLOGIC: No reports of sweating, cold or heat intolerance. No polyuria o r polydipsia. ALLERGIES: No history of asthma, hives, eczema or rhinitis. Physical Exam: Vital Signs: Last Filed In 24 Hours Vital Signs: 24 Hour Range BP: 89/54 (10/21 1199) Temp: 36.6 C (97.9 F) (10/20 0913) Pulse: 105 (10/21 1199) Respirations: 20 PER MINUTE (10/21 1199) SpO2: 98 % (10/21 1199) SpO2 Pulse: 100 (10/21 1199) BP: (83-101)/(51-60) Temp: [36.6 C (97.9 F)] Pulse: [94-106] Respirations: [20 PER MINUTE-31 PER MINUTE] SpO2: [98 %-100 %] General: Alert, cooperative, no distress, appears older than stated age, pale Head: Normocephalic, atraumatic. Eyes: Conjunctivae pale, pupils reactive Oropharynx: Dry mucus membranes. Neck: Supple, symmetrical, trachea midline, no adenopathy, mild JVD Lungs: Clear to auscultation bilaterally, Sternotomy scars noted. Heart: Regular rate and rhythm, S1, S2 heard, mechanical click present. Abdomen: Soft, non-tender. Bowel sounds normal. No masses. Extremities: Extremities normal, atraumatic, no cyanosis or edema Pulses: 2+ and symmetric, all extremities Psychiatric: Normal mood and appropriate affect. Lab/Radiology/Other Diagnostic Tests: 24-hour labs: Results for orders placed or performed during the hospital encounter of 10/20/20 (from the past 24 hour(s)) CBC Collection Time: 10/20/20 9:07 AM Result Value Ref Range White Blood Cells 7.8 4.5 - 11.0 K/UL RBC 1.96 (L) 4.0 - 5.0 M/UL Hemoglobin 5.9 (LL) 12.0 - 15.0 GM/DL Hematocrit 17.0 (L) 36 - 45 % MCV 86.9 80 - 100 FL MCH 30.1 26 - 34 PG MCHC 34.7 32.0 - 36.0 G/DL RDW 21.9 (H) 11 - 15 % Platelet Count 200 150 - 400 K/UL MPV 7.2 7 - 11 FL BASIC METABOLIC PANEL Collection Time: 10/20/20 9:07 AM Result Value Ref Range Sodium 133 (L) 137 - 147 MMOL/L Potassium 2.9 (L) 3.5 - 5.1 MMOL/L Chloride 96 (L) 98 - 110 MMOL/L CO2 26 21 - 30 MMOL/L Anion Gap 11 3 - 12 Glucose 136 (H) 70 - 100 MG/DL Blood Urea Nitrogen 42 (H) 7 - 25 MG/DL Creatinine 1.32 (H) 0.4 - 1.00 MG/DL Calcium 8.4 (L) 8.5 - 10.6 MG/DL eGFR Non 41 (L) >60 mL/min eGFR 50 (L) >60 mL/min PROTIME INR (PT) Collection Time: 10/20/20 9:07 AM Result Value Ref Range INR 3.2 (H) 0.8 - 1.2 MAGNESIUM Collection Time: 10/20/20 9:07 AM Result Value Ref Range Magnesium 1.8 1.6 - 2.6 mg/dL POC PT/INR Collection Time: 10/20/20 9:13 AM Result Value Ref Range INR POC 2.8 (H) 0.8 - 1.2 TYPE & CROSSMATCH Collection Time: 10/20/20 11:33 AM Result Value Ref Range Units Ordered 2 Crossmatch Expires 10/23/2020,9618 Record Check 2ND TYPE REQUIRED ABO/RH(D) O POS Antibody Screen NEG Electronic Crossmatch YES Unit Number [id number] Blood Component Type RBC,ADSOL,LEUKO REDUCED,1ST CONT. Unit Division 00 Status OF Unit ISSUED ISSUE DATE TIME PRODUCT CODE [id number] BLOOD TYPE O POS CODING STATUS 5100 BLOOD EXPIRATION DATE Transfusion Status OK TO TRANSFUSE Crossmatch Result COMPATIBLE,ELECTRONIC BLOOD TYPE CONFIRMATION - ORDER ONLY IF REQUESTED BY LAB Collection Time: 10/20/20 11:54 AM Result Value Ref Range ABO/RH(D) O POS COVID-19 (SARS-COV-2) PCR Collection Time: 10/20/20 12:53 PM Specimen: Nasopharyngeal; Flocked Swab Result Value Ref Range COVID-19 (SARS-CoV-2) PCR Source FLOCKED SWAB NASOPHARYNGEAL COVID-19 (SARS-CoV-2) PCR NOT DETECTED DN-NOT DETECTED BASIC METABOLIC PANEL Collection Time: 10/20/20 3:29 PM Result Value Ref Range Sodium 132 (L) 137 - 147 MMOL/L Potassium 3.6 3.5 - 5.1 MMOL/L Chloride 99 98 - 110 MMOL/L CO2 24 21 - 30 MMOL/L Anion Gap 9 3 - 12 Glucose 118 (H) 70 - 100 MG/DL Blood Urea Nitrogen 40 (H) 7 - 25 MG/DL Creatinine 1.28 (H) 0.4 - 1.00 MG/DL Calcium 7.7 (L) 8.5 - 10.6 MG/DL eGFR Non 43 (L) >60 mL/min eGFR 52 (L) >60 mL/min Glucose: (!) 136 (10/20/20 0907) Pertinent radiology reviewed. Vijaya Millard MD General Internal Medicine * Crissy Gould PA-C - 10/12/2020 6:22 PM CDT Patient presents for procedure. Please see History and Physical copied below. Crissy Gould PA-C Interventional Cardiology Pager [phone] Progress Notes Nithya Madison (Nikki), DUMP GRADER-IMMIGRATION JUDGE (Nurse Practitioner) Nurse Practitpurvi judd, 10/12/20 1130 Signed Date of Service: 10/12/2020 Zaria Paulson is a 60 y.o. female. She is followed by Dr. Longo HPI Her past medical history is significant for heart failure with preserved ejectio n fraction, nonischemic cardiomyopathy, s/p aortic valve replacement x3 (on court abstractor shantanu anticoagulation for mechanical valve), paroxysmal atrial fibrillation, hyp ertension, previous endocarditis, iron deficiency anemia -received IV iron, court abstractor shantanu kidney disease, hypothyroidism, depression, non-Hodgkins lymphoma and cirr hosis (etiology secondary to chemotherapy from treatment with non-Hodgkin lympho ma). She was hospitalized 05/2020 for heart failure. Her echocardiogram revealedseve re tricuspid regurgitationwith anestimatedPApressure of 64 mmHg, markedl y elevated central venous pressureand an EF of 60%. Her cardiac catheterizatio n showedRA 20, PA 49/24 with a mean of 32, pulmonary capillary wedge pressure 25, PA saturation 79%, RA saturation 81%, thermal cardiac output 5.33, with inde x 3.18, Yg cardiac output 9.2 with cardiac index 5.5and overallminimal non obstructive coronary artery disease.CT revealed cardiomegaly with mild pulmona ry edema and moderate bilateral pleural effusions compatible with CHF/volume ove rload.She was diuresed, discharged home and instructed to follow up with cardi ology. Her goal dry weight is 135 pounds. She was last seen by myself 09/07/20. At this visit she described acute onset of confusion, slurred speech, tremor, fatigue, and forgetfulness x4 days, this was after a fall earlier in the week. Recommended she go to the ER immediately for f urther evaluation. She went for CT several days after and it was negative. Since that time she is called with worsening symptoms (increased shortness of br eath and ongoing abdominal bloating). Difficult to ascertain if her symptoms ar e due to cirrhosis or heart failure but Dr. Marti feels that it is not due to he r liver. She took an additional metolazone and her symptoms improved slightly. She returns today for follow-up. Her weight has been variable over the last fri. Her lowest weight is 129 pounds but she was up to 144 pounds. She took the additional metolazone is now down to 134 pounds. Her abdomen continues to be f irm which is creating issues with her appetite. She reports shortness of breath with minimal exertion. Her home blood pressures continue to be 90 systolically. She is using 23 pillows at night. She denies paroxysmal nocturnal dyspnea, lower extremity edema, chest pain, irregular heartbeat/palpitations, dizziness, and/or syncope/near syncope. She is following the low-sodium diet and 2 L fluid restriction. She struggles w ith her diet given her need for caloric intake/decreased appetite/low-sodium t. She is taking her medications as prescribed. Vitals: 10/12/20 1026 BP: 99/62 BP Source: Arm, Left Upper Patient Position: Sitting Pulse: 89 Temp: 36.7 C (98 F) TempSrc: Skin SpO2: 96% Weight: 61.7 kg (136 lb) Height: 1.575 m (5' 2") PainSc: Zero Body mass index is 24.87 kg/m. Past Medical History Patient Active Problem List Diagnosis Date Noted Cirrhosis (HCC) 09/07/2020 Non-ischemic cardiomyopathy (HCC) 09/07/2020 Paroxysmal atrial fibrillation (HCC) 09/07/2020 Stage 3b chronic kidney disease (HCC) 09/07/2020 Atrial tachycardia (HCC) 09/07/2020 Iron deficiency anemia 08/03/2020 High output congestive heart failure (HCC) 08/01/2020 Hypotension, unspecified 07/10/2020 Chronic heart failure with preserved ejection fraction (HCC) 06/07/2020 Anemia 06/07/2020 Severe tricuspid regurgitation 06/07/2020 Aortic valve prosthesis present 06/07/2020 Chronic anticoagulation 06/07/2020 warfarin History of endocarditis 06/07/2020 No Known Allergies Social History Socioeconomic History Marital status: Life Partner Spouse name: Not on file Number of children: 3 Years of education: Not on file Highest education level: Not on file Occupational History Not on file Tobacco Use Smoking status: Never Smoker Smokeless tobacco: Never Used Substance and Sexual Activity Alcohol use: Not Currently Drug use: Never Sexual activity: Not Currently Other Topics Concern Not on file Social History Narrative Not on file Surgical History: Procedure Laterality Date AORTIC VALVE REPLACEMENT 05/2009 mechanical ESOPHAGOGASTRODUODENOSCOPY WITH BIOPSY - FLEXIBLE N/A 06/06/2020 Performed by Bao Hernández MD at [facility] COLONOSCOPY DIAGNOSTIC WITH SPECIMEN COLLECTION BY BRUSHING/ WASHING - FLEXI BLE N/A 06/06/2020 Performed by Bao Hernández MD at [facility] ANGIOGRAPHY CORONARY ARTERY WITH RIGHT AND LEFT HEART CATHETERIZATION N/A Performed by Higinio Clarke MD at [facility] POSSIBLE PERCUTANEOUS CORONARY STENT PLACEMENT WITH ANGIOPLASTY N/A Performed by Higinio Clarke MD at [facility] Family History Problem Relation Age of Onset COPD Mother Review of Systems Constitution: Positive for malaise/fatigue. HENT: Negative. Eyes: Negative. Cardiovascular: Positive for dyspnea on exertion. Respiratory: Negative. Endocrine: Negative. Hematologic/Lymphatic: Negative. Skin: Negative. Gastrointestinal: Positive for bloating. Genitourinary: Negative. Neurological: Negative. Psychiatric/Behavioral: Negative. Allergic/Immunologic: Negative. Physical Exam Constitutional: No acute distress HENT: Head - normocephalic Eyes: Conjunctivae normal Neck:8-9JVP,+HJR Cardiac Rhythm: Normal rate, regular rhythm Cardiac Ausculation: S1/S2 normal, no definitive S3 or S4, no gallop or fricti on rub Murmurs:Murmur heard Radial Arteries: Normal symmetric radial pulses Lower Extremity Edema:No lower extremity edema Pulmonary/Chest: Breathing comfortably, no respiratory distress, lungs clear to ausculation, no rales / rhonchi / wheezing Abdominal:Round, firm,no obvious masses, bowel sounds present Musculoskeletal: Moves all extremities, walks without assistance Skin: Warm / dry, no erythema Neurological: Alert and oriented to person, place, and time; no focal deficits Psychiatric: Normal mood and affect; judgment, behavior, and thought content nor mal Language and Memory:patient responsive and seems to comprehend information Vital signs reviewed Cardiovascular Studies Right and left heart catheterization on 06/08/2020 HEMODYNAMICS: 1. The patient's BSA is 1.67, hemoglobin 9.8, blood pressure 102/59 with a mean of 75 mmHg. Heart rate was 97 beats per minute. 2. Right atrial mean pressure was 20 mmHg. 3. Right ventricular pressure was 44/14 mmHg. Pulmonary arterial pressures wer e 49/24 mmHg with a mean of 32 mmHg. Pulmonary capillary wedge pressure was 25 mmHg. Transpulmonary gradient was 7 mmHg. Pulmonary vascular resistance was 1.3 Wood unit. Oxygen saturation in the aorta was 98%, right atrium 81%, pulm onary artery 79%. 4. Cardiac output by thermodilution method was 5.33 L/minute with a cardiac inde x of 3.18 L/minute per sq m body surface area. 5. Cardiac output by Yg is 9.24 L/minute with a cardiac index of 5.5 L/minute per sq m body surface area. 6. Ending aortic pressure was 82/56 with a meanof 67 mmHg. SELECTIVE CORONARY ARTERIOGRAM: 1. Right coronary artery: This arises normally from the right coronary sinus. It is a dominant vessel. The right coronary artery is patent with no signifi cant disease. 2. Left main: The left main coronary artery arises normally from the left dylan nary sinus. The left main artery appears to be patent with no significant dise ase. 3. Left circumflex artery: This arises normally from the left main. It is a nondominant vessel. There is no significant disease noted in the proximal area . In the midportion, there are mild luminal irregularities. Obtuse marginal branches are patent. 4. Left anterior descending artery: This is a type 3 vessel arising normally f rom the left main. The left anterior descending artery shows no significant le sions in its proximal and mid area. Distally after giving rise to diagonal bra nch, there are mild luminal irregularities. The diagonal branch itself is olivas nt. Problems Addressed Today Encounter Diagnoses Name Primary? Chronic heart failure with preserved ejection fraction (HCC) Yes Non-ischemic cardiomyopathy (HCC) Dilated cardiomyopathy (HCC) Paroxysmal atrial fibrillation (HCC) Stage 3 chronic kidney disease, unspecified whether stage 3a or 3b CKD (HCC) Severe tricuspid regurgitation Assessment and Plan Chronic Heart Failure with Preserved Ejection Fraction: -Echo on05/22/2020 showed an EF of 60%. -GDMT:Spironolactone 100 mg daily, [id number] twice daily, metolazone 2.5 mg twice weekly -Today, she describes NYHA Functional ClassIII-IVsymptoms, appears hypervole angel luis by exam. Her lowest weight is 129 pounds but she was up to 144 pounds. Sh key took the additional metolazone is now down to 134 pounds. Given that her weig ht is on the way down her creatinine remains elevated at 1.71 from 08/24 we will n ot make any medication changes today. -She is scheduled for CardioMEMS on 10/20. Preprocedure labs were drawn. EKG pr eliminary read sinus rhythm with first-degree AV and right bundle zheng bloc k block, heart rate 89. -She is struggling with finding foods that she can eat given her decreased appet ite but need for caloric intake and low-sodium diet. Will refer her to a dietit mg. -As stated above CardioMEMS on 10/20. Will follow up with her in a month. Non-Ischemic Cardiomyopathy: -GDMT as described above Atrial Fibrillation (Paroxysmal)/ Atrial Tachycardia/ s/p AorticValveReplace ment: -She is onmetoprolol tartrateand denies palpitations. -She is onwarfarinoral anticoagulation with no significant signs / symptoms of bleeding. Her anticoagulation is managed by Dr. Hopson. Severe TricuspidRegurgitation: -Her echo on 05/22/2020 showed severe tricuspid regurgitation, PA pressure 64 mmHg . -Plan is to continue to monitor with hopes that reducing her volume overload riddhi l improve her tricuspid regurgitation. Chronic Kidney Disease - StageIII: -Her creatinine on 08/24/2020 was 1.71, her creatinine is continue to elevate over the last couple of months given her increased diuretic needs. We will need to continue to monitor. BMP checked today. Follow Up Visit:1 month with Berna Madison I have personally documented the HPI, exam and medical decision making. Eliot gasca education: I reviewed recent lab results and current medications, medication i nstructions, discussed heart failure signs &symptoms,low sodium diet, fluid restriction and daily weights. I have instructed the patient on the plan of care and they verbalize understanding of the plan. Please see AVS for full patient teaching. Patient advised to call our office if s/he has any problems, questions, worsening symptoms, or concerns prior to the next appointment. Total [id number]. Estimated counseling [id number]. Thank you for allowing me to participate in the care of this patient. If you hav e any questions please do not hesitate to contact our office. Berna Madison, DNP, DUMP GRADER, IMMIGRATION JUDGE-C Collaborating Physician: Dr. Ramo Lamb [place] [facility] Current Medications (including today's revisions) ascorbic acid (VITAMIN C) 500 mg tablet Take 500 mg by mouth daily. bumetanide (BUMEX) 2 mg tablet Take 2.5 tablets by mouth twice daily. calcium carbonate (OS-KRUPA) 1250 mg tablet Take 1,250 mg by mouth daily. ergocalciferol (VITAMIN D-2) 1,250 mcg (50,000 unit) capsule Take 1 capsule by mouth every 7 days. FERROUS GLUCONATE PO Take 37.5 mg by mouth every 48 hours. fluticasone propionate (FLONASE) 50 mcg/actuation nasal spray, suspension Ap ply to each nostril as directed daily. Shake bottle gently before using. levothyroxine (SYNTHROID) 75 mcg tablet Take 75 mcg by mouth daily 30 minute s before breakfast. metOLazone (ZAROXOLYN) 2.5 mg tablet Take one tablet by mouth twice weekly. Take on Friday and Friday. When directed, take 30-60 minutes prior to your Bumex. metoprolol tartrate (LOPRESSOR) 25 mg tablet Take one-half tablet by mouth t wice daily. ondansetron (ZOFRAN) 4 mg tablet Take 4 mg by mouth every 8 hours as needed for Nausea or Vomiting. pantoprazole DR (PROTONIX) 40 mg tablet Take one tablet by mouth daily. Blanquita cations: indigestion, gastroesophageal reflux disease, heartburn, bleeding from stomach, esophagus or duodenum potassium chloride SR (K-DUR) 20 mEq tablet Take 20 mEq by mouth twice daily . Take with a meal and a full glass of water. promethazine (PHENERGAN) 25 mg tablet Take 25 mg by mouth as Needed for Naus ea or Vomiting. sertraline (ZOLOFT) 100 mg tablet Take 100 mg by mouth daily. spironolactone (ALDACTONE) 100 mg tablet Take one tablet by mouth daily for 360 days. Take with food. VASCEPA 1 gram capsule TAKE 2 CAPSULES BY MOUTH TWICE DAILY WITH MEALS warfarin (COUMADIN) 2.5 mg tablet Take one tablet by mouth daily. Take as di rected by physician managing INR. (Patient taking differently: Take 5 mg by mout h daily. Take as directed by physician managing INR.) documented in this encounter Consult Notes * Brigitte Barlow - 10/24/2020 2:57 PM CDT Associated Order(s): CONSULT DIETITIAN CLINICAL NUTRITION Clinical Nutrition Initial Assessment Name: Zaria Paulson : 1960 Age : 60 y.o. Admission Date: 10/20/2020 LOS: 4 days Recommendation: Suggest Low Sodium Diet Offer Boost PRN Comments: Zaria Paulson is a 60 y.o. female with history of liver cirrhosis, HFpEF, SHANTANU M, S/P mechanical aortic valve on coumadin, atrial fibrillation and previously t reated non-Hodgkin's lymphoma who presented to the hospital for implantation of CardioMEMs but was found to be severely anemia and is now being admitted to the medicine for acute GI bleeding. 10/21 s/p EGD with no bleeding, flex sig showed a rterial oozing around 30 cm in sigmoid colon that was consistent w/dieulafoy les ion. Consult for heart healthy diet education. Spoke with patient at bedside therese arango. She reports poor po intake for the past 6 months. She has nausea in the morn ing with occasional emesis. She would spend a whole day trying to finish a can o f Iwebalize O's. She reports she has had low serum sodium in the past and was to ld she didn't have to follow a special diet. Her son encourages her to increase her protein intake, he bought her unflavored protein powder. She lives at home a nd her prepares her meals. Reviewed a low sodium, high protein heart hea lthy diet. Reviewed good protein sources, along with myplate guidelines, half of your plate fruits and vegeteables, a 1/4th whole grain and a 4th lean protein. Patient has been eating 90% of her meals inpatient. She reports her UBW is 130 p ounds. Patient appears to have significant fluid fluctuations between 130-160 po unds Nutrition Assessment of Patient: Admit Weight: 59.8 kg; ; BMI (Calculated): 24.11; BMI Categories Adult: Acceptable: 18.5-24.9; Appearance : Appropriate Pertinent Allergies/Intolerances: n/a Pertinent Labs: Na 131; Pertinent Meds: maalox, synthroid, zofran, protonix; Oral Diet Order: Cardiac;Diabetic [id number] Kcal/day (60 g carb/meal, 30 g carb/ HS snack); Current Oral Intake: Marginally Adequate Estimated Calorie Needs: 1800(30kcal/kg/present wt) Estimated Protein Needs: 72-84(1.2-1.4g/kg/present wt) Malnutrition Assessment: Does not meet criteria; ; ; ; ; Nutrition Focused Physical Assessment: ; ; Muscle Wasting: Yes; Severity: Moderate; Location: Clavicle, [place] Edema: No; ; Pressure Injury: none noted Nutrition Diagnosis: Increased nutrient needs, specify:(kcal/protein) Etiology: liver cirrhosis Signs & Symptoms: est kcal/protein intake vs est needs Intervention / Plan: reviewed high protein needs monitor wt, lab trends and GI symptoms monitor po intake and adequacy Goals: Verbalize understanding of diet Time Frame: Prior to discharge Status: Met Patient to consume >75% of meals Time Frame: Within 72 hours Brigitte Barlow, , RD, AUTOMOTIVE ENGINEER, LD, CCTD Office: [phone] Available on Voalte * Claudette Walton APRN-IMMIGRATION JUDGE - 10/21/2020 8:23 AM CDT Associated Order(s): CONSULT HEART FAILURE PHYSICIAN Heart Failure Consult NAME:Zaria Paulson :1960 AGE: 60 y.o. ADMISSION DATE: 10/20/2020 DAYS ADMITTED: LOS: 1 day Principal Problem: GI bleeding Active Problems: Chronic heart failure with preserved ejection fraction (HCC) Anemia Severe tricuspid regurgitation Aortic valve prosthesis present Chronic anticoagulation History of endocarditis Iron deficiency anemia Cirrhosis (HCC) Paroxysmal atrial fibrillation (HCC) Stage 3b chronic kidney disease (HCC) LEONORA (acute kidney injury) (HCC) Zaria Paulson is a 60-year-old female who presented on 10/20 for scheduled Car dioMEMS implant however was found to be severely anemic and was admitted to [facility] for acute GI bleed. She has medical history significant for cirrho sis, heart failure with preserved ejection fraction (60%), nonischemic cardiomyo yolanda ([facility] 05/2020 no CAD), mechanical aortic valve implanted in 2010 on warfarin , atrial fibrillation and previously treated non-Hodgkin's lymphoma. She has se en Dr. Longo for initial consultation on 08/01/2020, was last seen in clinic on 10/12 by Nithya Madison APRN. Recommendations: Echo today EKG Troponin Transfer to MICU for acute GIB, AFRVR, Bumex 2 mg IV BID for now while receiving blood transfusions. Hold warfarin for now, may need FFP while actively bleeding. Check LDH, haptoglobin and plasma free HGB. GI team has been consulted, she will be getting EGD and flex sig today. Current ly on IV octreotide at 50 mcg/hr. She has received 2 units PRBCs. Continue IV amiodarone drip loading dose for AFRVR. Portable CXR. Patient was seen and examined with Dr.Vidic Claudette Walton, HF, IMMIGRATION JUDGE [phone] Assessment: Acute on Chronic diastolic HFpEF, EF: 60% on last echo 05/22/2020. Repeat echo p ending today. Major Complications or Comorbidities ([facility]): acute/ acute on chronic systolic and /or diastolic heart failure NYHA functional class III (marked limitation of physical activity - comfortable at rest, but less than ordinary activity causes symptoms of HF e.g., getting kelly ssed or standing from a sitting position), ACC Stage C (structural heart disease with prior or current symptoms of HF). She presents with signs of hypovolemia with bi ventricular failure without sign s of low flow state. Admission BNP:421 Intake/Output: Entire stay net: +250 ml, Last 24 hr net: +250 ml Goal Dry Weight:estimated 130 pounds Admission Most recent weights (inpatient): There were no vitals filed for this visit. Recommendations: GDMT FELT HAT INSPECTOR AND PACKER Changes BB Lopressor 12.5 mg twice daily ACEI/ARB/ARNI No Ejection Fraction >= 40% SGLT-2 Inhibitor Aldosterone Antagonist spironolactone 100 mg daily Hydralazine/Nitrate No (N/A - patient not Black/) Ivabradine No; Not treated with maximally tolerated dose beta blockers or beta b lockers contraindicated HRMT No (EF>35%) Anticoagulation for mechanical aortic valve Yes 10/20: INR 3.2 10/21: INR 3.7- hold warfarin tonight, may need FFP. Cardiac Rehab Evaluation for LVEF <40% Diuretic Therapy Prior to admission dose Bumex 5 mg p.o. twice daily and metolazone 2.5 mg twi ce weekly Given on admission Daily Dosing Recommend IV Bumex 2 mg BID. Nonischemic cardiomyopathy: She had a left heart cath on 06/08/2020 that showed n o evidence of significant coronary disease. The right heart cath showed RA 20, R V 44/14, PA 49/24 with a mean of 32, wedge 25, cardiac output was 5.3 with index 3.18 by thermodilution. Paroxysmal atrial fibrillation, Afb with RVR on 10/20 at 1715, 5 mg IV metoprolol and 40 mg IV lasix were given with improvement in HR to 100 bpm. She was start ed on amiodarone drip. Mechanical aortic valve: Initial surgery in 1975 at age [age] years old, second srinath rnotomy 1997 when bioprosthetic aortic valve was replaced, third sternotomy in with mechanical valve replacement last echocardiogram showed peak velocity 2 .5 with mean gradient 13, peak aortic valve gradient 25 mmHg. Severe tricuspid regurgitation: Echocardiogram on 05/22 showed severe tricuspid re gurgitation with PA pressure 64 mmHg LEONORA on CKD stage III: baseline creatinine 1.3, on admission 1.72. Acute GIB/Anemia:: History of angio ectasia on colonoscopy, previous EGD. Admiss ion hgb 5.9, she is receiving 2 units PRBCs. She has been started on octreotide and GI team is planning on EGD with fleixble sigmoidoscopy . Pulmonary hypertension: Follows with Dr. Rosales, she has had a right heart cath from outside hospital showing PA pressure 50/23, wedge 19, cardiac output was 5. 5 with index 3.2 Non-Hodgkin's lymphoma diagnosed in 2004 underwent chemotherapy follows with hem atology. Liver cirrhosis: Per Dr. Longo's note was felt to be secondary to chemotherapy, has had previous liver biopsy Restrictive lung disease: FVC 56%/FEV1 60% and DLCO of 66%. BMP once a day. Magnesium level daily. Keep Potassium greater than 4.0 and Magn esium greater than 2.0. 2000 mg sodium dietary restriction. Fluid Restriction 1.5L Yes Strict I/O. Standing scale daily weight. Cashier Wrapper consultation to discuss sodium restricted diet recommended. Pharmacy/Medication counseling recommended. Case Management/Social Work recommended. Physical Therapy consult recommended. Follow Up: appointment with a member of the HF team or PCP within 7 calendar day s of discharge. Reason for Consultation: Evaluation and recommendations re: heart failure History of Present Illness: Zaria Paulson is a 60 y.o. female who we are aske d to see for evaluation of heart failure. She currently complains of dyspnea on exertion, palpitations and chest pain.She had been having bloody stools that st arted on Friday, and had been nauseated and vomitting. She reports the chest p ain was a heavy pressure that woke her up, she states she sat up and the pressur e was relieved. She has had palpitations and lightheadedness. She fell and hit h er head on a coffee table. She currently denies peripheral edema. Review of Systems: Gastrointestinal: negative, positive for decreased appetite, nausea, vomiting an d melena Medical History: Diagnosis Date Cancer (HCC) Non- hodgkins lymphoma, chemo Disorder of thyroid gland Hypertension Iron deficiency anemia 08/03/2020 Iron deficiency anemia 08/03/2020 Surgical History: Procedure Laterality Date AORTIC VALVE REPLACEMENT 05/2009 mechanical ESOPHAGOGASTRODUODENOSCOPY WITH BIOPSY - FLEXIBLE N/A 06/06/2020 Performed by Bao Hernández MD at [facility] COLONOSCOPY DIAGNOSTIC WITH SPECIMEN COLLECTION BY BRUSHING/ WASHING - FLEXI BLE N/A 06/06/2020 Performed by Bao Hernández MD at [facility] ANGIOGRAPHY CORONARY ARTERY WITH RIGHT AND LEFT HEART CATHETERIZATION N/A Performed by Higinio Clarke MD at [facility] POSSIBLE PERCUTANEOUS CORONARY STENT PLACEMENT WITH ANGIOPLASTY N/A Performed by Higinio Clarke MD at [facility] Family History Problem Relation Age of Onset COPD Mother Social History Socioeconomic History Marital status: Life Partner Spouse name: Not on file Number of children: 3 Years of education: Not on file Highest education level: Not on file Occupational History Not on file Tobacco Use Smoking status: Never Smoker Smokeless tobacco: Never Used Substance and Sexual Activity Alcohol use: Not Currently Drug use: Never Sexual activity: Not Currently Other Topics Concern Not on file Social History Narrative Not on file Objective: Allergies: No Known Allergies Medications: Scheduled Meds:cefTRIAXone (ROCEPHIN) IVP 2 g, 2 g, Intravenous, Q24H* fluticasone propionate (FLONASE) nasal spray 1 spray, 1 spray, Each Nostril, BID levothyroxine (SYNTHROID) tablet 75 mcg, 75 mcg, Oral, QDAY 30 min before breakf ast pantoprazole (PROTONIX) injection 40 mg, 40 mg, Intravenous, BID(02-11) sertraline (ZOLOFT) tablet 100 mg, 100 mg, Oral, QDAY Continuous Infusions: amiodarone (CORDARONE) 360 mg in dextrose, iso-osm 200 mL infusion 0.5 mg/mi n (10/21/20 1237) octreotide (SandoSTATIN) 500 mcg in sodium chloride 0.9% (NS) 100 mL IV drip (std conc) 50 mcg/hr (10/21/20 1019) PRN and Respiratory Meds:acetaminophen Q4H PRN, aluminum/magnesium hydroxide Q4H PRN, docusate QDAY PRN, nitroglycerin Q5 MIN PRN, ondansetron Q6H PRN, prometha zine Q6H PRN Medications Prior to Admission Medication Sig Dispense Refill Last Dose ascorbic acid (VITAMIN C) 500 mg tablet Take 500 mg by mouth daily. 021 bumetanide (BUMEX) 2 mg tablet Take 2.5 tablets by mouth twice daily. 150 ta blet 3 10/19/2020 calcium carbonate (OS-KRUPA) 1250 mg tablet Take 1,250 mg by mouth daily. enoxaparin (LOVENOX) 60 mg syringe Inject 0.6 mL under the skin every 12 miguel rs for 10 days. 20 each 0 10/19/2020 ergocalciferol (VITAMIN D-2) 1,250 mcg (50,000 unit) capsule Take 1 capsule by mouth every 7 days. 10/19/2020 FERROUS GLUCONATE PO Take 37.5 mg by mouth every 48 hours. 10/19/2020 fluticasone propionate (FLONASE) 50 mcg/actuation nasal spray, suspension Ap ply to each nostril as directed daily. Shake bottle gently before using. Unkn own levothyroxine (SYNTHROID) 75 mcg tablet Take 75 mcg by mouth daily 30 minute s before breakfast. 10/19/2020 metOLazone (ZAROXOLYN) 2.5 mg tablet Take one tablet by mouth twice weekly. Take on Friday and Friday. When directed, take 30-60 minutes prior to your Bumex. 40 tablet 1 Past Week metoprolol tartrate (LOPRESSOR) 25 mg tablet Take one-half tablet by mouth t wice daily. 90 tablet 3 10/19/2020 ondansetron (ZOFRAN) 4 mg tablet Take 4 mg by mouth every 8 hours as needed for Nausea or Vomiting. Unknown pantoprazole DR (PROTONIX) 40 mg tablet Take one tablet by mouth daily. Blanquita cations: indigestion, gastroesophageal reflux disease, heartburn, bleeding from stomach, esophagus or duodenum 90 tablet 0 Unknown potassium chloride SR (K-DUR) 20 mEq tablet Take 20 mEq by mouth twice daily . Take with a meal and a full glass of water. 10/19/2020 promethazine (PHENERGAN) 25 mg tablet Take 25 mg by mouth as Needed for Naus ea or Vomiting. Unknown sertraline (ZOLOFT) 100 mg tablet Take 100 mg by mouth daily. spironolactone (ALDACTONE) 100 mg tablet Take one tablet by mouth daily for 360 days. Take with food. 90 tablet 3 10/19/2020 VASCEPA 1 gram capsule TAKE 2 CAPSULES BY MOUTH TWICE DAILY WITH MEALS 09/22 warfarin (COUMADIN) 2.5 mg tablet Take one tablet by mouth daily. Take as di rected by physician managing INR. (Patient taking differently: Take 5 mg by mout h daily. Take as directed by physician managing INR.) 30 tablet 0 Past Week Vital Signs: Last Filed Vital Signs: 24 Hour Range BP: 93/56 (10/21 1252) Temp: 36.4 C (97.6 F) (10/21 1146) Pulse: 102 (10/21 1252) Respirations: 27 PER MINUTE (10/21 1252) SpO2: 95 % (10/21 1252) SpO2 Pulse: 100 (10/21 0633) Height: 157.5 cm (5' 2.01") (10/21 09) BP: (85-115)/(48-84) Temp: [36.2 C (97.2 F)-37.1 C (98.8 F)] Pulse: [74-123] Respirations: [12 PER MINUTE-30 PER MINUTE] SpO2: [92 %-100 %] Intensity Pain Scale (Self Report): 10 (10/21/20 0948) Wt Readings from Last 10 Encounters: 10/21/20 61.7 kg (136 lb 0.4 oz) 10/12/20 61.7 kg (136 lb) 09/07/20 61.2 kg (135 lb) 08/24/20 60.6 kg (133 lb 9.6 oz) 08/22/20 59.9 kg (132 lb) 08/03/20 66 kg (145 lb 9.6 oz) 08/01/20 68.2 kg (150 lb 6.4 oz) 07/18/20 66.5 kg (146 lb 9.6 oz) 07/10/20 69.8 kg (153 lb 12.8 oz) 07/07/20 69.4 kg (153 lb) Physical Exam: General Appearance: thin, appears stated age, appears fatigued. Skin: bruising on right forehead, right shoulder and right knee.Appears slightly jaundiced. Digits and Nails: no cyanosis or clubbing Eyes: conjunctivae and lids normal, pupils are equal and round Teeth/Gums/Palate: dentition unremarkable, no lesions Lips & Oral Mucosa: no pallor or cyanosis Neck Veins: JVP ~9cm, HJR positive Chest Inspection: chest is normal in appearance Respiratory Effort: breathing comfortably, no respiratory distress Auscultation/Percussion: lungs CTA Cardiac Rhythm: regular rhythm and tachycardiac rate Cardiac Auscultation: S1, S2 present but clear splitting not heard, no rub, no S 3 gallop, no S4 gallop Murmurs:grade ii/vi systolic murmur at RSB Radial Arteries: normal symmetric radial pulses Pedal Pulses: normal symmetric pedal pulses Lower Extremity Edema:nolower extremity edema Peripheral Circulation: distal upper and lower extremities warm Abdominal Exam: soft, non-tender, no masses, bowel sounds normal Liver & Spleen: no hepatosplenomegaly Muscle Strength: normal muscle tone Orientation: oriented to time, place and person Affect & Mood: appropriate and sustained affect Language and Memory: patient responsive and seems to comprehend information Neurologic Exam: neurological assessment grossly intact and moves all extremitie s Laboratory Review: CBC w diff Lab Results Component Value Date/Time WBC 10.3 10/21/2020 05:15 AM RBC 2.10 (L) 10/21/2020 05:15 AM HGB 6.6 (L) 10/21/2020 05:15 AM HCT 19.0 (L) 10/21/2020 05:15 AM MCV 90.6 10/21/2020 05:15 AM MCH 31.4 10/21/2020 05:15 AM MCHC 34.6 10/21/2020 05:15 AM RDW 17.9 (H) 10/21/2020 05:15 AM PLTCT 173 10/21/2020 05:15 AM MPV 7.8 10/21/2020 05:15 AM Lab Results Component Value Date/Time NEUT 79 (H) 08/24/2020 09:19 AM ANC 4.01 08/24/2020 09:19 AM LYMA 10 (L) 08/24/2020 09:19 AM ALC 0.49 (L) 08/24/2020 09:19 AM TINY 10 08/24/2020 09:19 AM AMC 0.49 08/24/2020 09:19 AM EOSA 0 08/24/2020 09:19 AM AEC 0.01 08/24/2020 09:19 AM BASA 1 08/24/2020 09:19 AM ABC 0.03 08/24/2020 09:19 AM Chemistry Lab Results Component Value Date/Time NA 135 (L) 10/21/2020 05:15 AM K 4.1 10/21/2020 05:15 AM CL 101 10/21/2020 05:15 AM CO2 22 10/21/2020 05:15 AM GAP 12 10/21/2020 05:15 AM BUN 46 (H) 10/21/2020 05:15 AM CR 1.72 (H) 10/21/2020 05:15 AM GLU 141 (H) 10/21/2020 05:15 AM GLU 143 (H) 07/28/2020 09:45 AM Lab Results Component Value Date/Time CA 8.1 (L) 10/21/2020 05:15 AM PO4 3.3 10/20/2020 05:12 PM ALBUMIN 3.0 (L) 10/21/2020 05:15 AM TOTPROT 5.4 (L) 10/21/2020 05:15 AM ALKPHOS 55 10/21/2020 05:15 AM AST 27 10/21/2020 05:15 AM ALT 11 10/21/2020 05:15 AM TOTBILI 0.8 10/21/2020 05:15 AM GFR 30 (L) 10/21/2020 05:15 AM GFRAA 37 (L) 10/21/2020 05:15 AM Renal Function Lab Results Component Value Date/Time NA 135 (L) 10/21/2020 05:15 AM K 4.1 10/21/2020 05:15 AM CL 101 10/21/2020 05:15 AM CO2 22 10/21/2020 05:15 AM GAP 12 10/21/2020 05:15 AM BUN 46 (H) 10/21/2020 05:15 AM BUN 40 (H) 10/20/2020 05:12 PM BUN 40 (H) 10/20/2020 03:29 PM Lab Results Component Value Date/Time CR 1.72 (H) 10/21/2020 05:15 AM CR 1.35 (H) 10/20/2020 05:12 PM CR 1.28 (H) 10/20/2020 03:29 PM GLU 141 (H) 10/21/2020 05:15 AM GLU 143 (H) 07/28/2020 09:45 AM CA 8.1 (L) 10/21/2020 05:15 AM PO4 3.3 10/20/2020 05:12 PM ALBUMIN 3.0 (L) 10/21/2020 05:15 AM Lipid Profile INR No results found for: CHOL, TRIG, HDL, LDL, VLDL, NONHDLCHOL, CHOLHDLC Lab Results Component Value Date INR 3.7 (H) 10/21/2020 Chest X-Ray: Tele/ECG: ST 100 Echocardiogram Details: Echo Results (Last 3 results in the past 3 years) Echo EF LVIDD LA Size IVS LVPW Rest PAP (05/22/20) 60 (05/22/20) 4.31 (05/22/20) 6.56 (05/22/20) 1.21 (05/22/20) 1.30 (05/22/20) 64 Associated attestation - Shanell Ybarra DO - 10/21/2020 4:34 PM CDT Cardiology Staff Physician Attestation Reason for consult: heart failure Zaria Paulson is a 60 y.o. female with PMH of group 2 pulmonary hypertensio n, chronic anticoagulation, 3 prior operations for her aortic valve initially at age 16 and subsequently bioprosthetic and eventually mechanical aortic valve in 2010, cirrhosis who presented with severe anemia. She did have atrial fibrilla tion with RVR overnight in setting of hemoglobin 5.9. Patient has been reportin g more chest pain over the last few days as she became more anemic. Patient mason s not recall having melena or hematochezia. According to her nurse and half she has had multiple episodes of hematochezia. She was started on Protonix and oct reotide by primary team. She is scheduled to undergo endoscopy later today. Patient's past medical history, past surgical history, social history, family hi story, allergies, home medications, review of symptoms was performed in detail. Please see details above in a note. Vitals: 10/21/20 1530 BP: Pulse: Temp: 37 C (98.6 F) SpO2: HEENT:NCAT, atraumatic, no RENEE Neck:JVP 15 cm Trace edema of lower extremity Heart: 4 out of 6 holosystolic murmur at right lower sternal border murmur Lungs:Decreased breath sounds bilaterally Abdomen is soft and nontender Skin: Soft nontender Please see above note which was reviewed for more details 14 point ROS was positive for shortness of breath, pain, nausea, melena. Otherwi se the 14 point ROS was negative Recent labs, radiology and other diagnostics studies were reviewed. INR 3.7, CBC showed WBC 10.3, hemoglobin 6.6 platelets 173 Echocardiogram LVEF 60%, moderate RV dysfunction, torrential tricuspid regurgita tion CXR mild pulmonary vascular congestion Creatinine 1.7 My impression is GI bleed, A. fib with RVR in setting of GI bleed, chronic antic oagulation, cirrhosis, RV failure, severe tricuspid regurgitation Plan is keep hemoglobin above 7, okay to reverse INR temporarily given patient h as ongoing bleeding, continue with gentle diuresis, further GI work-up pending, given ongoing bleeding, elevated INR, we would rcommend transfer to ICU until bl eeding stops I have personally interviewed and examined the patient, have reviewed the medica l record & all pertinent medical documentation including the HPI, physical exam, & impression, and jointly formulated the treatment plan as outlined by the IMMIGRATION JUDGE The Complexity of medical decision making is high due to the multi-system diseas es present and the complexity and acuity of the pt's current clinical status wit h concerns including but not limited to complexity/severity and gravity of the p atient's underlying cardiac illnesses and interplay of other issues. I personally interviewed and examined the patient. I have examined the patient, reviewed the history, physical impression and plan outlined by the resident, mode and agree with my edits as outlined below. Staff alternative energy engineer: DO Jalen Jaimes Christopher, MD - 10/20/2020 1:25 PM CDT Associated Order(s): CONSULT HEPATOLOGY PHYSICIAN Hepatology Consult Note Patient Name:Zaria Paulson Admission Date: 10/20/2020 8:34 AM Principal Problem: Chronic heart failure with preserved ejection fraction (HCC) Active Problems: Anemia Severe tricuspid regurgitation Aortic valve prosthesis present Chronic anticoagulation History of endocarditis Iron deficiency anemia Cirrhosis (HCC) Paroxysmal atrial fibrillation (HCC) Stage 3b chronic kidney disease (HCC) GI bleeding History of Present Illness/Subjective: Zaria Paulson is a 60 y.o. female with history of HFpEF, mechanical AVR on wa rfarin, pAfib, HTN, JANKI, CKD, hypothyroidism non-Hodgkin's lymphoma, cirrhosis w ith ascites who presented for implantation of CardioMEMs device. Procedure was c ancelled after patient reported ongoing hematochezia. Hepatology is consulted fo r further evaluation. The patient reports that she started having bloody stools on Friday. She descri bes passage of large amounts of bright red blood with some clots. She reports fr equent stools on Friday/Friday but slowing down yesterday and today. Last ep isode was this morning. She denies abdominal pain. She endorses nausea which is chronic. She reports spitting up small amounts of "acid". Denies any hematemesis or coffee ground emesis. She reports chronic dyspnea. Denies lightheadedness or dizziness. She has abdominal distension but no LE edema. She is maintained on m ultiple diuretics and denies worsening from baseline. She has not required parac entesis in the past. She denies any episodes of confusion or encephalopathy. She is usually anticoagulated on warfarin, this has been held for the previously pl anned procedure (last 10/14) and she has been bridging with Lovenox, last dose . Assessment/ Plan: Zaria Paulson is a 60 y.o. female with history of HFpEF, mechanical AVR on wa rfarin, pAfib, HTN, JANKI, CKD, hypothyroidism non-Hodgkin's lymphoma, cirrhosis w ith ascites who presented for implantation of CardioMEMs device. Procedure was c ancelled after patient reported ongoing hematochezia. Hepatology is consulted fo r further evaluation. Decompensated Cirrhosis -Etiology uncertain. Patient reports 2/2 chemotherapy; however she does have a l ongstanding cardiac hx with severe TR and pulmonary HTN. Previous liver bx revie wed by [facility] and shows features of outflow obstruction raising concern fo r cardiac cirrhosis. -Decompensated by ascites/volume overload (cardiac?) -Follows with Dr. Marti -Not a transplant candidate due to co-morbidities -MELD elevated due to warfarin use -MELD-Na score: 28 at 08/24/2020 9:19 AM MELD score: 25 at 08/24/2020 9:19 AM Calculated from: Serum Creatinine: 1.71 MG/DL at 08/24/2020 9:19 AM Serum Sodium: 131 MMOL/L at 08/24/2020 9:19 AM Total Bilirubin: 1.1 MG/DL at 08/24/2020 9:19 AM INR(ratio): 3.1 at 08/24/2020 9:19 AM Age: 60 years 7 months Hematochezia Hx of Colonic AVMs Varices screening -Hematochezia x4 days. No pain Chronic nausea without hematemesis or CGE. -Mildly tachycardic 90-100, Systolic BP 85-100. (Appears similar to recent clini c appt where HR 89 and BP 99/62) -Hgb 5.9 at presentation from 11.6 previously -On warfarin at baseline, last 10/14, INR 3.2. Bridging with lovenox, last 10/19 -EGD 06/06/20: Normal esophagus, stomach, duodenum -Colonoscopy 06/06/20: Normal TI, 3mm IC valve polyp (not resected), single angio ectasia in sigmoid treated with APC, sigmoid diverticulosis, external hemorrhoid s. -Differential includes bleeding from angioectasia, diverticular bleed. Less like ly ischemic colitis. With soft BP and tachycardia, brisk upper bleeding is not e xcluded. Ascites/Volume Status -Appears moderately distended. No peripheral edema. Last imaging in May with m oderate ascites and body wall edema -[employer] Bumex 5 mg BID, Spironolactone 100 mg BID, metolazone twice weekly Hepatic Encephalopathy -No prior history -On exam, A&Ox3, no asterixis HCC Screening -CT w/ contrast 06/01/20 neg for focal hepatic lesions -No prior AFP HFpEF S/p AVR Severe Tricuspid regurgitation Pulmonary HTN Recommendations: -Trend Hgb, transfuse <7 -Plan for EGD/flex sig tomorrow in OR if patient remains stable overnight -CLD today, NPO at SC -No PO bowel prep. Will need tap water enema tomorrow morning prior to procedure -Maintain 2 large bore IVs -IV PPI BID -Octreotide bolus and gtt -Ceftriaxone for SBP prophylaxis -Hold diuretics -Hold warfarin and Lovenox Patient seen/discussed with Dr. Patricia Cool GI fellow Pager [phone] 10/20/2020 3:15 PM PMH: Medical History: Diagnosis Date Cancer (HCC) Non- hodgkins lymphoma, chemo Disorder of thyroid gland Hypertension Iron deficiency anemia 08/03/2020 Iron deficiency anemia 08/03/2020 Current medications: No current facility-administered medications on file prior to encounter. Current Outpatient Medications on File Prior to Encounter Medication Sig Dispense Refill ascorbic acid (VITAMIN C) 500 mg tablet Take 500 mg by mouth daily. bumetanide (BUMEX) 2 mg tablet Take 2.5 tablets by mouth twice daily. 150 ta blet 3 calcium carbonate (OS-KRUPA) 1250 mg tablet Take 1,250 mg by mouth daily. ergocalciferol (VITAMIN D-2) 1,250 mcg (50,000 unit) capsule Take 1 capsule by mouth every 7 days. FERROUS GLUCONATE PO Take 37.5 mg by mouth every 48 hours. fluticasone propionate (FLONASE) 50 mcg/actuation nasal spray, suspension Ap ply to each nostril as directed daily. Shake bottle gently before using. levothyroxine (SYNTHROID) 75 mcg tablet Take 75 mcg by mouth daily 30 minute s before breakfast. metOLazone (ZAROXOLYN) 2.5 mg tablet Take one tablet by mouth twice weekly. Take on Friday and Friday. When directed, take 30-60 minutes prior to your Bumex. 40 tablet 1 metoprolol tartrate (LOPRESSOR) 25 mg tablet Take one-half tablet by mouth t wice daily. 90 tablet 3 ondansetron (ZOFRAN) 4 mg tablet Take 4 mg by mouth every 8 hours as needed for Nausea or Vomiting. pantoprazole DR (PROTONIX) 40 mg tablet Take one tablet by mouth daily. Blanquita cations: indigestion, gastroesophageal reflux disease, heartburn, bleeding from stomach, esophagus or duodenum 90 tablet 0 potassium chloride SR (K-DUR) 20 mEq tablet Take 20 mEq by mouth twice daily . Take with a meal and a full glass of water. promethazine (PHENERGAN) 25 mg tablet Take 25 mg by mouth as Needed for Naus ea or Vomiting. sertraline (ZOLOFT) 100 mg tablet Take 100 mg by mouth daily. spironolactone (ALDACTONE) 100 mg tablet Take one tablet by mouth daily for 360 days. Take with food. 90 tablet 3 VASCEPA 1 gram capsule TAKE 2 CAPSULES BY MOUTH TWICE DAILY WITH MEALS warfarin (COUMADIN) 2.5 mg tablet Take one tablet by mouth daily. Take as di rected by physician managing INR. (Patient taking differently: Take 5 mg by mout h daily. Take as directed by physician managing INR.) 30 tablet 0 PSH: Surgical History: Procedure Laterality Date AORTIC VALVE REPLACEMENT 05/2009 mechanical ESOPHAGOGASTRODUODENOSCOPY WITH BIOPSY - FLEXIBLE N/A 06/06/2020 Performed by Bao Hernández MD at [facility] COLONOSCOPY DIAGNOSTIC WITH SPECIMEN COLLECTION BY BRUSHING/ WASHING - FLEXI BLE N/A 06/06/2020 Performed by Bao Hernández MD at [facility] ANGIOGRAPHY CORONARY ARTERY WITH RIGHT AND LEFT HEART CATHETERIZATION N/A Performed by Higinio Clarke MD at [facility] POSSIBLE PERCUTANEOUS CORONARY STENT PLACEMENT WITH ANGIOPLASTY N/A Performed by Higinio Clarke MD at [facility] SH: Social History Socioeconomic History Marital status: Life Partner Spouse name: Not on file Number of children: 3 Years of education: Not on file Highest education level: Not on file Occupational History Not on file Tobacco Use Smoking status: Never Smoker Smokeless tobacco: Never Used Substance and Sexual Activity Alcohol use: Not Currently Drug use: Never Sexual activity: Not Currently Other Topics Concern Not on file Social History Narrative Not on file FH: Family History Problem Relation Age of Onset COPD Mother Review of Systems: Constitutional: No fevers, chills, weight loss Eyes: No vision deficit, no icterus Ears, nose, mouth: No oral bleeding, ulcer Cardiovascular: No chest pain, palpitations Respiratory: No dyspnea, cough Gastrointestinal: See HPI Musculoskeltal: No joint inflammation, new deformity Integumentary: No rashes, exudate Neurologic: No cognitive change, focal weakness Hematologic: No for easy bleeding or bruising Please see HPI for additional pertinent documentation Physical Exam: Vitals: 10/20/20 1300 10/20/20 1325 10/20/20 1400 10/20/20 1500 BP: (!) 88/57 91/56 (!) 87/63 95/57 BP Source: Pulse: 96 95 96 Temp: 36.7 C (98 F) 37.1 C (98.8 F) SpO2: 100% 100% 98% Constitutional- Vitals above, no acute distress. Head - Normocephalic, atraumatic. Eyes - EOMI grossly. No icterus or injection. Ears, nose, mouth, throat- No oral ulcer or bleeding. Neck - No swelling or tracheal deviation. Respiratory - Symmetric chest rise, no increased work of breathing. Cardiovascular - Peripheral pulses intact, no pedal edema. Gastrointestinal- Soft, non-tender, moderately distended. Skin - No exposed rash, lesion. Neurologic - No CN deficit, normal fluid speech Psychiatric - Judgement intact, thought content appropriate. Labs/Imaging: Pertient labs/imaging were reviewed on initiation of progress note. Associated attestation - Cosmo Gomez MD - 10/20/2020 5:11 PM CDT ATTESTATION I personally performed the turpin portions of the E/M visit, discussed case with e Resident/Fellow/Nurse Practitioner and concur with documentation of history, p hysical exam, assessment, and treatment plan unless otherwise noted. Reason for consult: Hematochezia 60 years old female with past medical history of preserved ejection fraction con gestive heart failure, mechanical aortic valve replacement, severe tricuspid reg urgitation, and cardiogenic cirrhosis She is admitted to the hospital due to ongoing lower GI bleeding. She reported that she has been getting frequent lbright blood for the past few days Her hemoglobin baseline is ~10 this dropped to 5.9. Her blood pressure is soft with slight tachycardia. INR 3.2 EGD and colonoscopy done in 05/2020 showed no evidence of portal hypertension or varices. Sigmoid AVM was noted and treated endoscopic Physical exam: Appears well, awake, alert and oriented MELD-Na score: 28 at 08/24/2020 9:19 AM MELD score: 25 at 08/24/2020 9:19 AM Calculated from: Serum Creatinine: 1.71 MG/DL at 08/24/2020 9:19 AM Serum Sodium: 131 MMOL/L at 08/24/2020 9:19 AM Total Bilirubin: 1.1 MG/DL at 08/24/2020 9:19 AM INR(ratio): 3.1 at 08/24/2020 9:19 AM Age: 60 years 7 months Impression/Assessment/Plan/Recommendations: Principal Problem: GI bleeding Active Problems: Chronic heart failure with preserved ejection fraction (HCC) Anemia Severe tricuspid regurgitation Aortic valve prosthesis present Chronic anticoagulation History of endocarditis Iron deficiency anemia Cirrhosis (HCC) Paroxysmal atrial fibrillation (HCC) Stage 3b chronic kidney disease (HCC) Start the patient on octreotide and PPI Blood transfusion for target >7 Noted elevated INR. Ideally we would want her INR to be <2 for any endoscopic interval intervention Plan for an EGD and flexible sigmoidoscopy tomorrow. Okay to keep on clear liqu ids tonight and n.p.o. past midnight. Please administer enema times 2 in the AM Cosmo Gomez MD Gastroenterology and Transplant Hepatology 10/20/2020 documented in this encounter Miscellaneous Notes * Case Mgmt DC Plan - Gavi Nobles RN - 10/26/2020 10:07 AM CDT Case Management Progress Note NAME:Zaria Paulson : AGE: 60 y.o. ADMISSION DATE: 10/20/2020 DAYS ADMITTED: LOS: 6 days Todays Date: 10/26/2020 Plan D/c home today Pt lives in [facility] with her SO of 6 years. Pt reports she was independ ent with most cares [employer]. She does not drive. Pt will have transport home provided by her SO Catarino. He will be coming from [facility]. Pt was on warfarin [employer]. She had her alternative energy engineer Riley Hopson following inrs/coum marco dosing. Pt reports that sometimes her HF team would follow it and adjust he r coumadin SW to see pt today to assist with DPOA paperwork Interventions Support Support: Pt/Family Updates re:POC or DC Plan Info or Referral Discharge Planning Discharge Planning: No Needs Identified Medication Needs Medication Needs: No Needs Identified Financial Financial: No Needs Identified Legal Legal: DPOA & Advance Directives Other Disposition Expected Discharge Date 10/27/2020 4:00 PM Transportation Does the patient need discharge transport arranged?: No Transportation Name, Phone and Availability #1: pts TABITHACatarino to provide transport. he will be coming from [place]. Does the patient use Medicaid Transportation?: No Next Level of Care (Acute Psych discharges only) Discharge Disposition Selected Continued Care - Admitted Since 10/20/2020 No services have been selected for the patient. Gavi Nobles Integrated Nurse Stock Puller Bsn Rn-[facility] [phone] Pager [phone] * Care Coordination-Inpatient - Caitlin Esparza RN - 10/26/2020 9:49 AM CDT INPATIENT HEPATOLOGY CARE COORDINATION Patient: Zaria Paulson 10/26/2020 Admit Date:10/20/2020 Discharge Dates: 10/26/2020 Discharge Disposition: Home Rounding Physician: Dr Rachael Euceda Brief narrative regarding inpatient admission: 60 y.o. female with history of HF pEF, mechanical AVR on warfarin, pAfib, HTN, JANKI, CKD, hypothyroidism non-Hodgki n's lymphoma, and suspected cirrhosis with ascites who presented for implantatio n of CardioMEMs device, but developed hematochezia secondary to colonic Dieulafo y, treated with epinephrine, bipolar, and clips (also found to have 4 nonbleedin g colonic ulcers). Hepatology Follow-ups: No changes made to [employer] schedule Hepatology appt. Appointment Date/Time: 12/19/2020 @ 12pm Appointment Provider: Dr Allison Marti. Raw Hide Trimmer Follow up: Labs Labs: CBC ordered and faxed to patient's preferred lab [facility] [employer] in [facility] is currently closed, but lab services are still available. Order fax ed to number provided by eligibility services representative when called to verify lab services at is location. . Clinic fax number placed on order for results t o be sent back to. Fax confirmation received. Due Date: Approx 11/02/2020 Education addressed: Phoned patient prior to today's DC and introduced myself a nd the role of inpatient nurse coordinator. Reviewed above DC plan. Reviewed sig ns/symptoms of GI bleeding. If bleeding occurs she was instructed to return to [facility] ER for evaluation. She verbalized understanding. Encouraged patient/family to call the clinic with any hepatology needs after discharge. [phone]. ~Will be available if patient needs anything from a hepatology standpoint while in the hospital Friday through Friday 7am-5pm ~Discharge information to be sent to the hepatology provider & team that will follow with patient in the outpatient clinic. Rachael Esparza RN-BSN Inpatient Hepatology Nurse Coordinator Pgr: [phone] [facility]- [phone] * Care Plan - Shalonda Santizo RN - 10/26/2020 9:32 AM CDT Pt to d/c to home today Problem: Skin Integrity Goal: Skin integrity intact Outcome: Goal Ongoing Goal: Healing of skin (Wound & Incision) Outcome: Goal Ongoing Goal: Healing of skin (Pressure Injury) Outcome: Goal Ongoing Problem: High Fall Risk Goal: High Fall Risk Outcome: Goal Ongoing Problem: Cardiovascular Self Care Goal: Maximize Cardiovascular Knowledge Outcome: Goal Ongoing Goal: Maximize Cardiovascular Attitudes Outcome: Goal Ongoing Goal: Maximize Cardiovascular Behaviors. Outcome: Goal Ongoing Problem: Nutrition Deficit Goal: Adequate nutritional intake Outcome: Goal Ongoing * Care Plan - Elizabeth Stafford RN - 10/26/2020 6:38 AM CDT Problem: Skin Integrity Goal: Skin integrity intact 10/26/2020 0638 by Elizabeth Stafford RN Outcome: Goal Ongoing 10/26/2020 0637 by Elizabeth Stafford RN Outcome: Goal Ongoing Goal: Healing of skin (Wound & Incision) 10/26/2020 0638 by Elizabeth Stafford RN Outcome: Goal Ongoing 10/26/2020 0637 by Elizabeth Stafford RN Outcome: Goal Ongoing Goal: Healing of skin (Pressure Injury) 10/26/2020 0638 by Elizabeth Stafford RN Outcome: Goal Ongoing 10/26/2020 0637 by Elizabeth Stafford RN Outcome: Goal Ongoing Problem: High Fall Risk Goal: High Fall Risk 10/26/2020 0638 by Elizabeth Stafford RN Outcome: Goal Ongoing 10/26/2020 0637 by Elizabeth Stafford RN Outcome: Goal Ongoing Problem: Cardiovascular Self Care Goal: Maximize Cardiovascular Knowledge 10/26/2020 0638 by Elizabeth Stafford RN Outcome: Goal Ongoing 10/26/2020 0637 by Elizabeth Stafford RN Outcome: Goal Ongoing Goal: Maximize Cardiovascular Attitudes 10/26/2020 0638 by Elizabeth Stafford RN Outcome: Goal Ongoing 10/26/2020 0637 by Elizabeth Stafford RN Outcome: Goal Ongoing Goal: Maximize Cardiovascular Behaviors. 10/26/2020 0638 by Elizabeth Stafford RN Outcome: Goal Ongoing 10/26/2020 0637 by Elizabeth Stafford RN Outcome: Goal Ongoing Problem: Nutrition Deficit Goal: Adequate nutritional intake 10/26/2020 0638 by Elizabeth Stafford RN Outcome: Goal Ongoing 10/26/2020 0637 by Elizabeth Stafford RN Outcome: Goal Ongoing * Elizabeth Leblanc RN - 10/26/2020 6:37 AM CDT Problem: Skin Integrity Goal: Skin integrity intact Outcome: Goal Ongoing Goal: Healing of skin (Wound & Incision) Outcome: Goal Ongoing Goal: Healing of skin (Pressure Injury) Outcome: Goal Ongoing Problem: High Fall Risk Goal: High Fall Risk Outcome: Goal Ongoing Problem: Cardiovascular Self Care Goal: Maximize Cardiovascular Knowledge Outcome: Goal Ongoing Goal: Maximize Cardiovascular Attitudes Outcome: Goal Ongoing Goal: Maximize Cardiovascular Behaviors. Outcome: Goal Ongoing Problem: Nutrition Deficit Goal: Adequate nutritional intake Outcome: Goal Ongoing * Laurita Gusman - Lilly Walton RN - 10/24/2020 7:21 PM CDT Problem: Skin Integrity Goal: Skin integrity intact Outcome: Goal Ongoing Goal: Healing of skin (Wound & Incision) Outcome: Goal Ongoing Goal: Healing of skin (Pressure Injury) Outcome: Goal Ongoing Problem: Infection, Risk of, Urinary Catheter-Associated Urinary Tract Infection Goal: Absence of urinary catheter-associated infection Outcome: Goal Achieved Problem: High Fall Risk Goal: High Fall Risk Outcome: Goal Ongoing Problem: Cardiovascular Self Care Goal: Maximize Cardiovascular Knowledge Outcome: Goal Ongoing Goal: Maximize Cardiovascular Attitudes Outcome: Goal Ongoing Goal: Maximize Cardiovascular Behaviors. Outcome: Goal Ongoing Problem: Nutrition Deficit Goal: Adequate nutritional intake Outcome: Goal Ongoing * Lilly Montano RN - 10/23/2020 6:34 PM CDT Problem: Skin Integrity Goal: Skin integrity intact Outcome: Goal Ongoing Goal: Healing of skin (Wound & Incision) Outcome: Goal Ongoing Goal: Healing of skin (Pressure Injury) Outcome: Goal Ongoing Problem: Infection, Risk of, Urinary Catheter-Associated Urinary Tract Infection Goal: Absence of urinary catheter-associated infection Outcome: Goal Ongoing Flowsheets (Taken 10/23/2020 1834) Absence of urinary catheter-associated infections: Manage urinary catheter Collect urinne specimens appropriately Urinary catheter discontinuation Provide patient/family education on CAUTI prevention Assess for signs and sypmtoms of catheter-associated urinary tract infection Provide urinary catheter home care education Problem: High Fall Risk Goal: High Fall Risk Outcome: Goal Ongoing Problem: Cardiovascular Self Care Goal: Maximize Cardiovascular Knowledge Outcome: Goal Ongoing Goal: Maximize Cardiovascular Attitudes Outcome: Goal Ongoing Goal: Maximize Cardiovascular Behaviors. Outcome: Goal Ongoing * Case Mgmt DC Plan - Gavi Nobles RN - 10/23/2020 4:07 PM CDT Case Management Admission Assessment NAME:Zaria Paulson :[birth year] AGE: 60 y.o. ADMISSION DATE: 10/20/2020 DAYS ADMITTED: LOS: 3 days Todays Date: 10/23/2020 Per emr, "Zaria Paulson is a 60 y.o. female with history of liver cirrhosis, HFpEF, NICM, S/P mechanical aortic valve on coumadin, atrial fibrillation and pr eviously treated non-Hodgkin's lymphoma who presented to the hospital for implan tation of CardioMEMs but was found to be severely anemia and is now being admitt ed to the medicine for acute GI bleeding". Source of Information: pt and emr Plan Plan: Case Management Assessment, Assist PRN with SW/NCM Services Spoke to patient and explained role in r/t d/c planning and provided contact information. Reviewed [facility], Preparing for Discharge, and Preferre d Provider Network hand-outs. Provided opportunity for questions and discussion. Pt encouraged to contact Case Management team with questions and concerns during hospitalization is any assist is needed. Pt lives in [facility] with her SO of 6 years. Pt reports she was independ ent with most cares [employer]. She does not drive. Pt will have transport home provided by her SO Catarino. He will be coming from [facility]. Pt has used HH and home infusion in the past, but could not remember the name of the companies. Pt was on warfarin [employer]. She had her alternative energy engineer Riley Hopson following inrs/coum marco dosing. Pt reports that sometimes her HF team would follow it and adjust he r coumadin. Plan: holding warfarin today. Monitoring pt when back on warfarin and adjust as needed pending INRs. Pending d/c . Will follow. Patient Address/Phone [address] [facility] [phone] (home) Emergency Contact Extended Emergency Contact Information Primary Emergency Contact: Catarino Westfall Mobile Relation: Significant Other Secondary Emergency Contact: Blair Chambers Mobile Relation: Son Healthcare Directive Healthcare Directive: No, patient does not have a healthcare directive Would patient like to fill out a (a new) Healthcare Directive?: No, patient decl ined Psych Advance Directive (Psych unit only): No, patient does not have a Psych Adv ance Directive Transportation Does the patient need discharge transport arranged?: No Transportation Name, Phone and Availability #1: pts Catarino LU to provide transport. he will be coming from [place]. Does the patient use Medicaid Transportation?: No Expected Discharge Date 10/26/2020 4:00 PM Living Situation Prior to Admission Living Arrangements Type of Residence: Home, independent Living Arrangements: Spouse/significant other How many levels in the residence?: 1 Can patient live on one level if needed?: Yes Does residence have entry and/or side stairs?: Yes(1 SRINATH with rail) Who provides assistance or could if needed?: SO Are they in good health?: Yes Can support system provide 24/7 care if needed?: Maybe Level of Function Prior level of function: Independent Cognitive Abilities Cognitive Abilities: Alert and Oriented, Engages in problem solving and planning , Participates in decision making Financial Resources Coverage Primary Insurance: Medicare Secondary Insurance: Medicaid Additional Coverage: RX, Other (comment)(pt reports she has additional medicatio n coverage with a medication discount program. meds cost 1-6 dollars) Source of Income Source Of Income: Other fpc income Financial Assistance Needed? no reported concerns regarding medication or medical coverage Psychosocial Needs Mental Health Mental Health History: No Substance Use History Substance Use History Screen: No Other na Current/Previous Services PCP Garfield Gray, , Pharmacy [place] [id number] [address] [address] Durable Medical Equipment Durable Medical Equipment at home: None Home Health Receiving home health: In the past Agency name: unable to remember Would patient use this agency again?: Yes Hemodialysis or Peritoneal Dialysis Undergoing hemodialysis or peritoneal dialysis: No Tube/Enteral Feeds Receive tube/enteral feeds: No Infusion Receive infusions: In the past Where: home Infusion company: unable to remember Would patient use this agency again?: Yes Private Duty Private duty help used: No Home and Community Based Services Home and community based services: No Wicho White Wicho White: N/A Hospice Hospice: No Outpatient Therapy PT: yes, pt had cardiac rehab post CABG at [facility] outpt. OT: No KALSOMINER: No Senior Living Facility/Long-Term SNF: No NH: No Inpatient Rehab IPR: No Long-Term Acute Care Hospital LTACH: No Acute Hospital Stay Acute Hospital Stay: In the past Was patient's stay within the last 30 days?: No Gavi Nobles Integrated Nurse Stock Puller Bsn Rn-[facility] [phone] Pager [phone] * Care Plan - Maggi Salamanca RN - 10/22/2020 10:19 PM CDT Problem: Skin Integrity Goal: Skin integrity intact Outcome: Goal Ongoing Goal: Healing of skin (Wound & Incision) Outcome: Goal Ongoing Goal: Healing of skin (Pressure Injury) Outcome: Goal Ongoing Problem: Infection, Risk of, Urinary Catheter-Associated Urinary Tract Infection Goal: Absence of urinary catheter-associated infection Outcome: Goal Ongoing Problem: High Fall Risk Goal: High Fall Risk Outcome: Goal Ongoing * Care Plan - Jerica Fry RN - 10/22/2020 7:26 PM CDT Problem: Skin Integrity Goal: Skin integrity intact Outcome: Goal Ongoing Goal: Healing of skin (Wound & Incision) Outcome: Goal Ongoing Goal: Healing of skin (Pressure Injury) Outcome: Goal Ongoing Problem: Infection, Risk of, Urinary Catheter-Associated Urinary Tract Infection Goal: Absence of urinary catheter-associated infection Outcome: Goal Ongoing Problem: High Fall Risk Goal: High Fall Risk Outcome: Goal Ongoing * Response Teams - Joan Parrish RN - 10/21/2020 12:53 PM CDT Code Blue Team Progress Note Date: 10/21/2020 Time: 12:53 PM Patient: Zaria Paulson Attending: Duyen Arroyo DO Service: [place] [id number] Admission Date: 10/20/2020 LOS: 1 day A Code/Rapid Response Timeline Event Report has been created for this patient on 10/21/20 at 1224 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 1 unit being infused. VSS at this time and pt plans to go for scope today. Discussed plans with Dr Ryan and pt stable to remain on niels or at this time. The lead provider for this event was Dr Arroyo. Joan Parrish RN * Response Teams - Nevin Tellez RN - 10/20/2020 5:23 PM CDT Rapid Response Team Progress Note Date: 10/20/2020 Time: 5:23 PM Patient: Zaria Paulson Attending: Vijaya Millard MD Service: [facility] 4554 Admission Date: 10/20/2020 LOS: 0 days A Code/Rapid Response Timeline Event Report has been created for this patient on 10/20/20 at 1708 Rapid called for tachy/ and c/o sob after transfusion,HR 120s to 130s afib, HR t reated with metoprolol, lasix given, pt with known GI bleed, blood transfusion r estarted, echo ordered Nevin Tellez RN * Care Coordination-Inpatient - Vijaya Millard MD - 10/20/2020 4:38 PM CDT Assigned to [facility] as moving to HC 7. Vijaya Millard MD documented in this encounter Plan of Treatment Date/Time Name Type Priority Associated Diag noses 10/21/2020 1:45 PM CDT TRANSFUSE RBC'S Blood Bank STAT 10/21/2020 5:59 PM CDT TRANSFUSE PLASMA (FFP) Blood Bank Routine 10/21/2020 1:45 PM CDT TRANSFUSE RBC'S Blood Bank STAT 10/21/2020 5:59 PM CDT TRANSFUSE PLASMA (FFP) Blood Bank Routine 10/21/2020 8:51 PM CDT TRANSFUSE RBC'S Blood Bank Routine 10/21/2020 8:51 PM CDT TRANSFUSE RBC'S Blood Bank Routine Order Schedule Name Type Priority Associated Diag noses Expected: 10/27/2020 (Approximate), Expi res: 10/26/2021 PROTIME INR (PT) Lab Routine Hematochezia Gastrointestinal hemorrhage, unspecified gastrointestinal hemorrhage type Atrial tachycardia (HCC) Expected: 11/02/2020 (Approximate), Expi res: 10/26/2021 BASIC METABOLIC PANEL Lab Routine Hematoch ezia Gastrointestinal hemorrhage, unspecified gastrointestinal hemorrhage type Atrial tachycardia (HCC) documented as of this encounter Goals Goal Patient Associated Recent Progress Patient-Stat Aut hor Goal Type Problems ed? [facility] On track (10/23/2020 Yes [place], 1:06 PM CDT) CHRYSTAL Singh documented as of this encounter Procedures Comments Procedure Name Priority Date/Time Associated Diag nosis HC PTT(APTT) Routine 10/26/2020 6:16 AM CDT HC PT(INR) Routine 10/26/2020 6:16 AM CDT HC CBC,AUTOMATED Routine 10/26/2020 6:16 AM CDT HC MAGNESIUM Routine 10/26/2020 6:16 AM CDT HC COMPREHENSIVE Routine 10/26/2020 METABOLIC PANEL 6:16 AM CDT HC PTT(APTT) STAT 10/26/2020 12:27 AM CDT HC PTT(APTT) STAT 10/25/2020 6:00 PM CDT HC ALPHA FETO PROTEIN, Routine 10/25/2020 SERUM 6:05 AM CDT HC PT(INR) Routine 10/25/2020 6:05 AM CDT HC CBC,AUTOMATED Routine 10/25/2020 6:05 AM CDT HC MAGNESIUM Add on 10/25/2020 6:05 AM CDT HC COMPREHENSIVE Routine 10/25/2020 METABOLIC PANEL 6:05 AM CDT HC IRON BINDING CAPACITY Add on 10/24/2020 + %SAT 5:47 AM CDT HC PT(INR) Routine 10/24/2020 5:47 AM CDT HC CBC,AUTOMATED Routine 10/24/2020 5:47 AM CDT HC COMPREHENSIVE Routine 10/24/2020 METABOLIC PANEL 5:47 AM CDT HC CBC,AUTOMATED Routine 10/23/2020 12:35 PM CDT HC COMPREHENSIVE Routine 10/23/2020 METABOLIC PANEL 12:35 PM CDT HC PT(INR) Routine 10/23/2020 8:37 AM CDT HC HEMOGLOBIN GERRY 10/22/2020 11:17 PM CDT TRANSFUSE RBC'S Routine 10/22/2020 9:53 PM CDT HC CBC,AUTOMATED Routine 10/22/2020 8:59 PM CDT HC LACTIC ACID(LACTATE) STAT 10/22/2020 8:59 PM CDT CBC Routine 10/22/2020 12:34 PM CDT HC PT(INR) Routine 10/22/2020 3:12 AM CDT HC CBC,AUTOMATED Routine 10/22/2020 3:12 AM CDT HC MAGNESIUM Add on 10/22/2020 3:12 AM CDT HC COMPREHENSIVE Routine [...] Add on 10/21/2020 5:15 AM CDT HC PT(INR) Routine 10/21/2020 5:15 AM CDT HC CBC,AUTOMATED Routine 10/21/2020 5:15 AM CDT HC COMPREHENSIVE Routine 10/21/2020 METABOLIC PANEL 5:15 AM CDT HC LACTIC ACID(LACTATE) Routine 10/21/2020 5:10 AM CDT HC CBC,AUTOMATED Routine 10/20/2020 10:15 PM CDT HC TROPONIN-I Code 10/20/2020 5:12 PM CDT HC PTT(APTT) Code 10/20/2020 5:12 PM CDT HC PT(INR) Code 10/20/2020 5:12 PM CDT CBC Code 10/20/2020 5:12 PM CDT HC PHOSPHOROUS, SERUM Code 10/20/2020 5:12 PM CDT HC MAGNESIUM Code 10/20/2020 5:12 PM CDT HC COMPREHENSIVE Code 10/20/2020 METABOLIC PANEL 5:12 PM CDT POC GLUCOSE 10/20/2020 5:11 PM CDT TRANSFUSE RBC'S Routine 10/20/2020 4:37 PM CDT BASIC METABOLIC PANEL STAT 10/20/2020 3:29 PM CDT COVID-19 (SARS-COV-2) PCR Routine 10/20/2020 12:53 PM CDT HC BLOOD TYPING, ABO STAT 10/20/2020 CONFIRM 91 11:54 AM CDT HC ABO GROUP STAT 10/20/2020 11:33 AM CDT HC PT(INR) POC 10/20/2020 9:13 AM CDT BLUE TOP TUBE 10/20/2020 9:07 AM CDT HC PT(INR) Add on 10/20/2020 9:07 AM CDT HC CBC,AUTOMATED STAT 10/20/2020 9:07 AM CDT HC MAGNESIUM Add on 10/20/2020 9:07 AM CDT HC BASIC METABOLIC PANEL STAT 10/20/2020 9:07 AM CDT ECG 12-LEAD [...] AM CDT ECG-SCAN 10/20/2020 12:00 AM CDT documented in this encounter Results * PTT (APTT) (10/26/2020 6:16 AM CDT) APTT 34.5 24.0 - 36.5 SEC MAIN LAB Specimen Performing Organization Address City/State/ZIP Code P shane Number MAIN LAB [address] [place] [address] * PROTIME INR (PT) (10/26/2020 6:16 AM CDT) INR 1.4 (H) 0.8 - 1.2 MAIN LAB Specimen Blood Performing Organization Address City/[facility]/ZIP Code P shane Number [facility] MA[facility] [address] [place] [address] * MAGNESIUM (10/26/2020 6:16 AM CDT) Magnesium 1.9 1.6 - 2.6 mg/dL [facility] MAIN LAB Specimen Blood Performing Organization Address City/[facility] Code P shane Number [facility] MAIN [facility] [address] [place] [address] * CBC (10/26/2020 6:16 AM CDT) White Blood 7.0 4.5 - 11.0 K/UL [...] MAIN LAB Specimen Blood Performing Organization Address [facility] P shane Number [facility]IN [facility] [address] [place] [address] * COMPREHENSIVE METABOLIC PANEL (10/26/2020 6:16 AM CDT) Sodium 131 (L) 137 - 147 MMOL/L [...] LAB Anion Gap 7 3 - 12 MAIN LAB eGFR Non 49 (L) >60 mL/min MAIN LAB Comment: [place] The eGFR is not validated f or use in drug dosing adjustments. Continue to use estimated creatinine clearance per dosing reference text. Please contact the Clinical Pharmacist for questions. eGFR 59 (L) >60 mL/min [facility] [place] Comment: The eGFR is not validated for use in drug dosing adjustments. Continue to use estimated creatinine clearance per dosing reference text. Please contact the Clinical Pharmacist for questions. Specimen Blood Performing Organization Address City/[facility]/ZIP Code P shane Number MAIN LAB [address] [place] [id number] * PTT (APTT) (10/26/2020 12:27 AM CDT) APTT 75.3 (H) 24.0 - 36.5 SEC MAIN LAB Specimen Blood Performing Organization Address City/[facility]/ZIP Code P shane Number [facility]IN [facility] [address] [place] [id number] * PTT (APTT) (10/25/2020 6:00 PM CDT) APTT 30.1 24.0 - 36.5 SEC MAIN LAB Specimen Blood Performing Organization Address City/[facility]/ZIP Code P shane Number MAIN LAB [address] [place] [address] * MAGNESIUM (10/25/2020 6:05 AM CDT) Magnesium 1.9 1.6 - 2.6 mg/dL MAIN LAB Specimen Performing Organization Address City/[facility]/ZIP Code P shane Number MAIN LAB [address] [place] [address] * CBC (10/25/2020 6:05 AM CDT) White Blood 5.0 4.5 - 11.0 K/UL [facility] LAB Cells RBC 2.43 (L) 4.0 - 5.0 M/UL [facility] LAB Hemoglobin 7.9 (L) 12.0 - 15.0 GM/DL [facility] MAIN LAB Hematocrit 23.0 (L) 36 - 45 % [facility] MAIN LAB MCV 94.5 80 - 100 FL [facility] MAIN LAB MCH 32.7 26 - 34 PG [facility] MAIN [facility] MCHC 34.6 32.0 - 36.0 G/DL [facility] MAIN LAB RDW 17.0 (H) 11 - 15 % [facility] MAIN LAB Platelet Count 141 (L) 150 - 400 K/UL [facility] MPV 7.2 7 - 11 FL [facility] MAIN LAB Specimen Blood Performing Organization Address City/State/ZIP Code P shane Number [facility] [address] [place] [address] * ALPHA FETO PROTEIN (AFP) (10/25/2020 6:05 AM CDT) Alpha Feto 1.4 0.0 - 15.0 NG/ML [facility] MAIN LAB Protein Specimen Blood Performing Organization Address City/[facility] Code P shane Number [facility] [address] [place] [address] * COMPREHENSIVE METABOLIC PANEL (10/25/2020 6:05 AM CDT) Sodium 134 (L) 137 - 147 MMOL/L [facility]IN [facility] Potassium 4.0 3.5 - 5.1 MMOL/L [facility] Chloride 99 98 - 110 MMOL/L [facility] Glucose 89 70 - 100 MG/DL [facility] Blood Urea 21 7 - 25 MG/DL [facility] Nitrogen Creatinine 0.95 0.4 - 1.00 MG/DL [facility] Calcium 7.8 (L) 8.5 - 10.6 MG/DL [facility] Total Protein 4.8 (L) 6.0 - 8.0 G/DL [facility] Total Bilirubin 0.8 0.3 - 1.2 MG/DL [facility] Albumin 2.8 (L) 3.5 - 5.0 G/DL [facility] Alk Phosphatase 57 25 - 110 U/L [facility] MAIN [facility] AST (SGOT) 21 7 - 40 U/L [facility] MAIN [facility] CO2 28 21 - 30 MMOL/L [facility] ALT (SGPT) 10 7 - 56 U/L [facility] Anion Gap 7 3 - 12 [facility] MAIN LAB eGFR Non >60 >60 mL/min [facility]IN [facility] Comment: [place] The eGFR is not validated f or use in drug dosing adjustments. Continue to use estimated creatinine clearance per dosing reference text. Please contact the Clinical Pharmacist for questions. eGFR >60 >60 mL/min [facility] [place] Comment: The eGFR is not validated for use in drug dosing adjustments. Continue to use estimated creatinine clearance per dosing reference text. Please contact the Clinical Pharmacist for questions. Specimen Blood Performing Organization Address City/State/ZIP Code P shane Number [facility] [address] [place] [address] * PROTIME INR (PT) (10/25/2020 6:05 AM CDT) INR 1.4 (H) 0.8 - 1.2 [facility] MAIN LAB Specimen Blood Performing Organization Address City/[facility]/ZIP [facility] P shane Number [facility] [address] [place] [address] * IRON + BINDING CAPACITY + %SAT+ FERRITIN (10/24/2020 5:47 AM CDT) Iron 32 (L) 50 - 160 MCG/DL [facility] Iron 262 (L) 270 - 380 MCG/DL [facility] Binding-TIBC % Saturation 12 (L) 28 - 42 % [facility] Ferritin 130 10 - 200 NG/ML [facility] Specimen Performing Organization Address [facility] P shane Number [facility] [address] [place] [address] * CBC (10/24/2020 5:47 AM CDT) White Blood 4.8 4.5 - 11.0 K/UL [facility] Cells RBC 2.53 (L) 4.0 - 5.0 M/UL [facility] Hemoglobin 8.0 (L) 12.0 - 15.0 GM/DL [facility] Hematocrit 23.7 (L) 36 - 45 % [facility] MCV 93.6 80 - 100 FL [facility] MCH 31.6 26 - 34 PG [facility] MCHC 33.8 32.0 - 36.0 G/DL [facility] RDW 16.6 (H) 11 - 15 % [facility] Platelet Count 118 (L) 150 - 400 K/UL [facility] MPV 7.2 7 - 11 FL [facility]IN [facility] Specimen Blood Performing Organization Address [facility] P shane Number [facility] [address] [place] [address] * COMPREHENSIVE METABOLIC PANEL (10/24/2020 5:47 AM CDT) Sodium 131 (L) 137 - 147 MMOL/L [facility] Potassium 4.1 3.5 - 5.1 MMOL/L [facility] Chloride 98 98 - 110 MMOL/L [facility] Glucose 112 (H) 70 - 100 MG/DL [facility] Blood Urea 34 (H) 7 - 25 MG/DL [facility] Nitrogen Creatinine 1.47 (H) 0.4 - 1.00 MG/DL [facility] Calcium 7.7 (L) 8.5 - 10.6 MG/DL [facility] Total Protein 4.9 (L) 6.0 - 8.0 G/DL [facility] Total Bilirubin 0.8 0.3 - 1.2 MG/DL [facility] Albumin 2.8 (L) 3.5 - 5.0 G/DL [facility] Alk Phosphatase 50 25 - 110 U/L [facility] AST (SGOT) 22 7 - 40 U/L [facility] CO2 28 21 - 30 MMOL/L [facility] ALT (SGPT) 11 7 - 56 U/L [facility] Anion Gap 5 3 - 12 [facility] MAIN [facility] eGFR Non 37 (L) >60 mL/min [facility]IN [facility] Comment: [place] The eGFR is not validated f or use in drug dosing adjustments. Continue to use estimated creatinine clearance per dosing reference text. Please contact the Clinical Pharmacist for questions. eGFR 44 (L) >60 mL/min [facility] [place] Comment: The eGFR is not validated for use in drug dosing adjustments. Continue to use estimated creatinine clearance per dosing reference text. Please contact the Clinical Pharmacist for questions. Specimen Blood Performing Organization Address City/State/ZIP Code P shane Number [facility] [address] [place] [address] * PROTIME INR (PT) (10/24/2020 5:47 AM CDT) INR 1.8 (H) 0.8 - 1.2 [facility] MAIN [facility] Specimen Blood Performing Organization Address City/State/ZIP Code P shane Number [facility] [address] [place] [address] * COMPREHENSIVE METABOLIC PANEL (10/23/2020 12:35 PM CDT) Sodium 131 (L) 137 - 147 MMOL/L [facility] Potassium 4.1 3.5 - 5.1 MMOL/L [facility] Chloride 99 98 - 110 MMOL/L [facility] Glucose 122 (H) 70 - 100 MG/DL [facility] Blood Urea 42 (H) 7 - 25 MG/DL [facility] Nitrogen Creatinine 1.79 (H) 0.4 - 1.00 MG/DL [facility] Calcium 7.9 (L) 8.5 - 10.6 MG/DL [facility] Total Protein 5.1 (L) 6.0 - 8.0 G/DL [facility] Total Bilirubin 0.8 0.3 - 1.2 MG/DL [facility] Albumin 2.9 (L) 3.5 - 5.0 G/DL [facility] Alk Phosphatase 52 25 - 110 U/L [facility] AST (SGOT) 26 7 - 40 U/L [facility] CO2 25 21 - 30 MMOL/L [facility] ALT (SGPT) 11 7 - 56 U/L [facility] Anion Gap 7 3 - 12 [facility]IN [facility] eGFR Non 29 (L) >60 mL/min [facility]IN [facility] Comment: [place] The eGFR is not validated f or use in drug dosing adjustments. Continue to use estimated creatinine clearance per dosing reference text. Please contact the Clinical Pharmacist for questions. eGFR 35 (L) >60 mL/min [facility] [place] Comment: The eGFR is not validated for use in drug dosing adjustments. Continue to use estimated creatinine clearance per dosing reference text. Please contact the Clinical Pharmacist for questions. Specimen Blood Performing Organization Address City/State/ZIP Code P shane Number [facility] [address] [place] [address] * CBC (10/23/2020 12:35 PM CDT) White Blood 6.8 4.5 - 11.0 K/UL [facility] Cells RBC 2.53 (L) 4.0 - 5.0 M/UL [facility] Hemoglobin 8.0 (L) 12.0 - 15.0 GM/DL [facility] Hematocrit 23.9 (L) 36 - 45 % [facility] MCV 94.2 80 - 100 FL [facility] MCH 31.7 26 - 34 PG [facility] MCHC 33.6 32.0 - 36.0 G/DL [facility] RDW 16.4 (H) 11 - 15 % [facility] Platelet Count 117 (L) 150 - 400 K/UL [facility] MPV 7.5 7 - 11 FL [facility] Specimen Blood Performing Organization Address City/[facility]/ZIP Code P shane Number [facility] [address] [place] [address] * PROTIME INR (PT) (10/23/2020 8:37 AM CDT) INR 2.8 (H) 0.8 - 1.2 [facility]IN [facility] Specimen Blood Performing Organization Address City/[facility]/ZIP Code P shane Number [facility] [address] [place] [address] * HEMOGLOBIN & HEMATOCRIT (10/22/2020 11:17 PM CDT) Hemoglobin 7.9 (L) 12.0 - 15.0 GM/DL [facility] Hematocrit 22.8 (L) 36 - 45 % [facility] Specimen Blood Performing Organization Address [facility] Code P shane Number [facility] [address] [place] [address] * TRANSFUSE RBC'S (10/22/2020 9:53 PM CDT) Specimen Blood * TRANSFUSE RBC'S (10/22/2020 9:53 PM CDT) Specimen Blood * LACTIC ACID(LACTATE) (10/22/2020 8:59 PM CDT) Lactic Acid 1.9 0.5 - 2.0 MMOL/L [facility] Specimen Blood Performing Organization Address [facility] Code P shane Number [facility] [address] [place] [address] * CBC (10/22/2020 8:59 PM CDT) White Blood 9.2 4.5 - 11.0 K/UL [facility] Cells RBC 2.39 (L) 4.0 - 5.0 M/UL [facility] Hemoglobin 7.7 (L) 12.0 - 15.0 GM/DL [facility] Hematocrit 22.4 (L) 36 - 45 % [facility] MCV 93.6 80 - 100 FL [facility] MCH 32.1 26 - 34 PG [facility] MCHC 34.3 32.0 - 36.0 G/DL [facility] RDW 16.3 (H) 11 - 15 % [facility] Platelet Count 117 (L) 150 - 400 K/UL [facility] MPV 7.7 7 - 11 FL [facility] Specimen Blood Performing Organization Address City/[facility]/ZIP Code P shane Number [facility] [address] [place] [address] * CBC (10/22/2020 12:34 PM CDT) White Blood 9.8 4.5 - 11.0 K/UL [facility] Cells RBC 2.08 (L) 4.0 - 5.0 M/UL [facility] Hemoglobin 6.7 (L) 12.0 - 15.0 GM/DL [facility] Hematocrit 19.6 (L) 36 - 45 % [facility] MCV 94.3 80 - 100 FL [facility] MCH 32.1 26 - 34 PG [facility] MCHC 34.0 32.0 - 36.0 G/DL [facility] RDW 16.8 (H) 11 - 15 % [facility] Platelet Count 119 (L) 150 - 400 K/UL [facility] MPV 7.5 7 - 11 FL [facility] Specimen Blood Performing Organization Address [facility]/ZIP Code P shane Number [facility] [address] [place] [address] * MAGNESIUM (10/22/2020 3:12 AM CDT) Magnesium 2.0 1.6 - 2.6 mg/dL [facility] Specimen Performing Organization Address City/[facility]/ZIP Code P shane Number [facility] [address] [place] [address] * CBC (10/22/2020 3:12 AM CDT) White Blood 10.0 4.5 - 11.0 K/UL [facility] Cells RBC 2.26 (L) 4.0 - 5.0 M/UL [facility] Hemoglobin 7.2 (L) 12.0 - 15.0 GM/DL [facility] Hematocrit 20.9 (L) 36 - 45 % [facility] MCV 92.3 80 - 100 FL [facility] MCH 31.8 26 - 34 PG [facility] MCHC 34.4 32.0 - 36.0 G/DL [facility] RDW 16.7 (H) 11 - 15 % [facility] Platelet Count 124 (L) 150 - 400 K/UL [facility] MPV 7.6 7 - 11 FL [facility] Specimen Blood Performing Organization Address City/State/ZIP Code P shane Number [facility] [address] [place] [address] * PROTIME INR (PT) (10/22/2020 3:12 AM CDT) INR 3.1 (H) 0.8 - 1.2 [facility] Specimen Blood Performing Organization Address City/State/ZIP Code P shane Number [facility] [address] [place] [address] * COMPREHENSIVE METABOLIC PANEL (10/22/2020 3:12 AM CDT) Sodium 137 137 - 147 MMOL/L [facility] Potassium 3.3 (L) 3.5 - 5.1 MMOL/L [facility] Chloride 101 98 - 110 MMOL/L [facility] Glucose 181 (H) 70 - 100 MG/DL [facility] Blood Urea 50 (H) 7 - 25 MG/DL [facility] Nitrogen Creatinine 1.91 (H) 0.4 - 1.00 MG/DL [facility] Calcium 8.3 (L) 8.5 - 10.6 MG/DL [facility] Total Protein 5.4 (L) 6.0 - 8.0 G/DL [facility] Total Bilirubin 0.8 0.3 - 1.2 MG/DL [facility] Albumin 3.1 (L) 3.5 - 5.0 G/DL [facility] Alk Phosphatase 51 25 - 110 U/L [facility] AST (SGOT) 23 7 - 40 U/L [facility] CO2 23 21 - 30 MMOL/L [facility] ALT (SGPT) 10 7 - 56 U/L [facility] Anion Gap 13 (H) 3 - 12 [facility] eGFR Non 27 (L) >60 mL/min [facility] Comment: [place] The eGFR is not validated f or use in drug dosing adjustments. Continue to use estimated creatinine clearance per dosing reference text. Please contact the Clinical Pharmacist for questions. eGFR 33 (L) >60 mL/min [facility] [place] Comment: The eGFR is not validated for use in drug dosing adjustments. Continue to use estimated creatinine clearance per dosing reference text. Please contact the Clinical Pharmacist for questions. Specimen Blood Performing Organization Address City/State/ZIP Code P shane Number [facility] [address] [place] [address] * EGD REPORT (10/21/2020 9:59 PM CDT) Provation Patient Name: Khurram SPARKS OTHER Report Procedure Date: 10/21/2020 9:59 RESULT S PM CSN: [id number] Date of : 1960 Gender: Female Attending Physician: Cosmo Gomez MD Procedure: Upper GI endoscopy Indications: Hematochezia Providers: Cosmo Gomez MD (Doctor), Jesus Senior (Fellow), Sarah Sapp (Nurse), Omid Brooke Blending Supervisor (Blending Supervisor) Referring Physician: Cosmo Gomez MD Medications: Monitored [...] 6 seconds Procedure Code(s): --- Professional --- 17748, Esophagogastroduodenoscopy, flexible, transoral; diagnostic, including collection of specimen(s) by brushing or washing, when performed (separate procedure) Diagnosis Code(s): --- Professional --- K22.8, Other specified diseases of esophagus K92.1, Melena (includes Hematochezia) CPT copyright 2020 [employer]. All rights reserved. The codes documented in this report are preliminary and upon assistant professor of psychology review may be revised to meet current [...] Date: 10/21/2020 9:34 RESULT S PM CSN: [id number] Date of : 1960 Gender: Female Attending Physician: Cosmo Gomez MD Procedure: Flexible Sigmoidoscopy Indications: Hematochezia Providers: Cosmo Gomez MD (Doctor), Sarah Sapp (Nurse), Omid Brooke, Blending Supervisor (Blending Supervisor), Jesus Senior (Fellow) Referring Physician: Cosmo Gomez [...] 40 seconds Procedure Code(s): --- Professional --- 26385, Sigmoidoscopy, flexible; with control of bleeding, any method Diagnosis Code(s): --- Professional --- K55.21, Angiodysplasia of colon with hemorrhage K92.1, Melena (includes Hematochezia) CPT copyright 2020 [employer]. All rights reserved. The codes documented in this report are preliminary and upon assistant professor of psychology review may be revised to meet current [...] P shane Number KU OTHER RESULTS * PROTIME INR (PT) (10/21/2020 6:46 PM CDT) INR 3.7 (H) 0.8 - 1.2 KU MAIN LAB Specimen Blood Performing Organization Address City/State/ZIP Code P shane Number KU MAIN LAB [address] [place] [address] * CBC (10/21/2020 6:46 PM CDT) White Blood 10.1 4.5 - 11.0 K/UL KU MAIN LAB Cells RBC 2.36 (L) 4.0 - 5.0 M/UL [facility] MAIN LAB Hemoglobin 7.2 (L) 12.0 - 15.0 GM/DL KU MAIN LAB Hematocrit 21.3 (L) 36 - 45 % K[facility] MAIN LAB MCV 90.4 80 - 100 FL KU MAIN LAB MCH 30.7 26 - 34 PG MAIN LAB MCHC 33.9 32.0 - 36.0 G/DL MAIN LAB RDW 17.3 (H) 11 - 15 % MAIN LAB Platelet Count 156 150 - 400 K/UL MAIN LAB MPV 7.2 7 - 11 FL MAIN LAB Specimen Blood Performing Organization Address City/State/ZIP Code P shane Number MAIN LAB [address] [place] [address] * TRANSFUSE RBC'S (10/21/2020 1:35 PM CDT) Specimen Blood * TRANSFUSE RBC'S (10/21/2020 1:35 PM CDT) Specimen Blood * PREPARE PLASMA (FFP) (10/21/2020 12:38 PM CDT) Units Ordered 1 MAIN LAB Unit Number [id number] [facility] MAIN LAB Blood Component THAWED PLASMA [facility]U MAIN LAB Type Unit Division 00 MAIN LAB Status OF Unit TRANSFUSED KU MAIN LAB ISSUE DATE TIME KU MAIN LAB PRODUCT CODE P7371Q02 MAIN LAB BLOOD TYPE O POS KU MAIN LAB CODING STATUS 5100 KU MAIN LAB BLOOD [id number] KU MAIN LAB EXPIRATION DATE Transfusion OK TO TRANSFUSE KU MAIN LAB Status Specimen Other (Specify) Performing Organization Address [facility] P shane Number MAIN LAB [address] [place] [address] * 2D + DOPPLER ECHO (10/21/2020 9:56 [...] OUTSIDE Systolic Volume LAB Index LVOT peak farhana 1.29 m/s OTHER OUTSIDE LAB LVOT peak [...] 42.64 cm OTHER OUTSIDE LAB Mr max farhana 4.56 m/s OTHER OUTSIDE LAB MV Peak E Farhana 1.59 m/s OTHER OUTSIDE PW LAB Right [...] = LAB AV index 0.50 OTHER OUTSIDE ([facility]) LAB LVOT area 2.96 cm2 OTHER OUTSIDE [...] 18.07 OTHER OUTSIDE ratio LAB Cardiology Siemens [id number] OTHER OUTSIDE Ultrasound LAB Machine Specimen Narrative [...] significant changes have occurred. Performing Organization Address City/[facility] Code P shane Number OTHER OUTSIDE LAB * TROPONIN-I (10/21/2020 9:50 AM CDT) Pathologist [facility] Troponin-I 0.04 0.0 - 0.05 NG/ML KU MAIN LAB Specimen Blood Performing Organization Address [facility] P shane Number KU MAIN LAB [address] [place] [address] * TROPONIN-I (10/21/2020 5:15 AM CDT) Pathologist [facility] Troponin-I 0.04 0.0 - 0.05 NG/ML KU MAIN LAB Specimen Performing Organization Address [facility] P shane Number KU MAIN LAB [address] [place] [address] * CBC (10/21/2020 5:15 AM CDT) White Blood 10.3 4.5 - 11.0 K/UL KU MAIN LAB Cells RBC 2.10 (L) 4.0 - 5.0 M/UL KU MAIN LAB Hemoglobin 6.6 (L) 12.0 - 15.0 GM/DL KU MAIN LAB Hematocrit 19.0 (L) 36 - 45 % K[facility] MAIN LAB MCV 90.6 80 - 100 FL KU MAIN LAB MCH 31.4 26 - 34 PG KU MAIN LAB MCHC 34.6 32.0 - 36.0 G/DL KU MAIN LAB RDW 17.9 (H) 11 - 15 % KU MAIN LAB Platelet Count 173 150 - 400 K/UL KU MAIN LAB MPV 7.8 7 - 11 FL KU MAIN LAB Specimen Blood Performing Organization Address City/State/ZIP Code P shane Number KU MAIN LAB [address] [place] [address] * PROTIME INR (PT) (10/21/2020 5:15 AM CDT) INR 3.7 (H) 0.8 - 1.2 KU MAIN LAB Specimen Blood Performing Organization Address City/[facility]/ZIP Code P shane Number KU MAIN LAB [address] [place] [address] * COMPREHENSIVE METABOLIC PANEL (10/21/2020 5:15 AM CDT) Sodium 135 (L) 137 - 147 MMOL/L KU MAIN LAB Potassium 4.1 3.5 - 5.1 MMOL/L [facility] MAIN LAB Chloride 101 98 - 110 MMOL/L KU MAIN LAB Glucose 141 (H) 70 - 100 MG/DL KU MAIN LAB Blood Urea 46 (H) 7 - 25 MG/DL KU MAIN LAB Nitrogen Creatinine 1.72 (H) 0.4 - 1.00 MG/DL KU MAIN LAB Calcium 8.1 (L) 8.5 - 10.6 MG/DL KU MAIN LAB Total Protein 5.4 (L) 6.0 - 8.0 G/DL KU MAIN LAB Total Bilirubin 0.8 0.3 - 1.2 MG/DL KU MAIN LAB Albumin 3.0 (L) 3.5 - 5.0 G/DL KU MAIN LAB Alk Phosphatase 55 25 - 110 U/L KU MAIN LAB AST (SGOT) 27 7 - 40 U/L KU MAIN LAB CO2 22 21 - 30 MMOL/L KU MAIN LAB ALT (SGPT) 11 7 - 56 U/L KU MAIN LAB Anion Gap 12 3 - 12 KU MAIN LAB eGFR Non 30 (L) >60 mL/min [facility] MAIN LAB Comment: [place] The eGFR is not validated f or use in drug dosing adjustments. Continue to use estimated creatinine clearance per dosing reference text. Please contact the Clinical Pharmacist for questions. eGFR 37 (L) >60 mL/min K[facility] MAIN LAB [place] Comment: The eGFR is not validated for use in drug dosing adjustments. Continue to use estimated creatinine clearance per dosing reference text. Please contact the Clinical Pharmacist for questions. Specimen Blood Performing Organization Address City/[facility]/ZIP Code P shane Number KU MAIN LAB [address] [place] [address] * LACTIC ACID(LACTATE) (10/21/2020 5:10 AM CDT) Lactic Acid 1.9 0.5 - 2.0 MMOL/L KU MAIN LAB Specimen Blood Performing Organization Address City/[facility] Code P shane Number KU MAIN LAB [address] [place] [address] * TRANSFUSE RBC'S (10/20/2020 10:16 PM CDT) Specimen Blood * CBC (10/20/2020 10:15 PM CDT) White Blood 11.7 (H) 4.5 - 11.0 K/UL KU MAIN LAB Cells RBC 2.31 (L) 4.0 - 5.0 M/UL KU MAIN LAB Hemoglobin 7.2 (L) 12.0 - 15.0 GM/DL KU MAIN LAB Hematocrit 21.0 (L) 36 - 45 % KU MAIN LAB MCV 91.1 80 - 100 FL KU MAIN LAB MCH 31.0 26 - 34 PG KU MAIN LAB MCHC 34.0 32.0 - 36.0 G/DL KU MAIN LAB RDW 17.7 (H) 11 - 15 % KU MAIN LAB Platelet Count 171 150 - 400 K/UL KU MAIN LAB MPV 7.1 7 - 11 FL KU MAIN LAB Specimen Blood Performing Organization Address [facility] Code P shane Number KU MAIN LAB [address] [place] [address] * PHOSPHORUS (10/20/2020 5:12 PM CDT) Phosphorus 3.3 2.0 - 4.5 MG/DL KU MAIN LAB Specimen Blood Performing Organization Address City/[facility]/ZIP Code P shane Number KU MAIN LAB [address] [place] [address] * MAGNESIUM (10/20/2020 5:12 PM CDT) Magnesium 1.8 1.6 - 2.6 mg/dL KU MAIN LAB Specimen Blood Performing Organization Address City/[facility]/ZIP Code P shane Number KU MAIN LAB [address] [place] [address] * TROPONIN-I (10/20/2020 5:12 PM CDT) Pathologist [facility] Troponin-I 0.04 0.0 - 0.05 NG/ML KU MAIN LAB Specimen Blood Performing Organization Address City/State/ZIP Code P shane Number KU MAIN LAB [address] [place] [address] * COMPREHENSIVE METABOLIC PANEL (10/20/2020 5:12 PM CDT) Pathologist [facility] Sodium 134 (L) 137 - 147 MMOL/L KU MAIN LAB Potassium 3.8 3.5 - 5.1 MMOL/L [facility] MAIN LAB Chloride 99 98 - 110 MMOL/L K[facility] MAIN LAB Glucose 132 (H) 70 - 100 MG/DL KU MAIN LAB Blood Urea 40 (H) 7 - 25 MG/DL KU MAIN LAB Nitrogen Creatinine 1.35 (H) 0.4 - 1.00 MG/DL K[facility] MAIN LAB Calcium 8.3 (L) 8.5 - 10.6 MG/DL KU MAIN LAB Total Protein 5.5 (L) 6.0 - 8.0 G/DL KU MAIN LAB Total Bilirubin 1.3 (H) 0.3 - 1.2 MG/DL KU MAIN LAB Albumin 3.1 (L) 3.5 - 5.0 G/DL K[facility] MAIN LAB Alk Phosphatase 58 25 - 110 U/L KU MAIN LAB AST (SGOT) 24 7 - 40 U/L KU MAIN LAB CO2 22 21 - 30 MMOL/L K[facility] MAIN LAB ALT (SGPT) 11 7 - 56 U/L K[facility] MAIN LAB Anion Gap 13 (H) 3 - 12 KU MAIN LAB eGFR Non 40 (L) >60 mL/min [facility] MAIN LAB Comment: [place] The eGFR is not validated f or use in drug dosing adjustments. Continue to use estimated creatinine clearance per dosing reference text. Please contact the Clinical Pharmacist for questions. eGFR 49 (L) >60 mL/min [facility] MAIN LAB [place] Comment: The eGFR is not validated for use in drug dosing adjustments. Continue to use estimated creatinine clearance per dosing reference text. Please contact the Clinical Pharmacist for questions. Specimen Blood Performing Organization Address City/[facility]/ZIP Code P shane Number KU MAIN LAB [address] [place] [address] * PTT (APTT) (10/20/2020 5:12 PM CDT) Pathologist [facility] APTT 34.9 24.0 - 36.5 SEC KU MAIN LAB Specimen Blood Performing Organization Address [facility]/ZIP Code P shane Number KU MAIN LAB [address] [place] [address] * PROTIME INR (PT) (10/20/2020 5:12 PM CDT) INR 3.1 (H) 0.8 - 1.2 KU MAIN LAB Specimen Blood Performing Organization Address [facility] P shane Number KU MAIN LAB [address] [place] [address] * CBC (10/20/2020 5:12 PM CDT) Pathologist [facility] White Blood 11.0 4.5 - 11.0 K/UL KU MAIN LAB Cells RBC 1.97 (L) 4.0 - 5.0 M/UL KU MAIN LAB Hemoglobin 6.1 (L) 12.0 - 15.0 GM/DL KU MAIN LAB Hematocrit 17.6 (L) 36 - 45 % KU MAIN LAB MCV 89.3 80 - 100 FL KU MAIN LAB MCH 31.1 26 - 34 PG KU MAIN LAB MCHC 34.9 32.0 - 36.0 G/DL KU MAIN LAB RDW 20.0 (H) 11 - 15 % KU MAIN LAB Platelet Count 197 150 - 400 K/UL KU MAIN LAB MPV 7.5 7 - 11 FL KU MAIN LAB Specimen Blood Performing Organization Address [facility] P shane Number KU MAIN LAB [address] [place] [address] * POC GLUCOSE (10/20/2020 5:11 PM CDT) Pathologist [facility] Glucose, POC 152 (H) 70 - 100 MG/DL KU MAIN LAB Specimen Performing Organization Address [facility] Code P shane Number KU MAIN LAB [address] [place] [address] * TRANSFUSE RBC'S (10/20/2020 4:37 PM CDT) Specimen Blood * BASIC METABOLIC PANEL (10/20/2020 3:29 PM CDT) Sodium 132 (L) 137 - 147 MMOL/L KU MAIN LAB Potassium 3.6 3.5 - 5.1 MMOL/L K[facility] MAIN LAB Chloride 99 98 - 110 MMOL/L KU MAIN LAB CO2 24 21 - 30 MMOL/L K[facility] MAIN LAB Anion Gap 9 3 - 12 [facility] Glucose 118 (H) 70 - 100 MG/DL [facility] Blood Urea 40 (H) 7 - 25 MG/DL [facility] Nitrogen Creatinine 1.28 (H) 0.4 - 1.00 MG/DL [facility] Calcium 7.7 (L) 8.5 - 10.6 MG/DL [facility] eGFR Non 43 (L) >60 mL/min [facility] Comment: [place] The eGFR is not validated f or use in drug dosing adjustments. Continue to use estimated creatinine clearance per dosing reference text. Please contact the Clinical Pharmacist for questions. eGFR 52 (L) >60 mL/min [facility] [place] Comment: The eGFR is not validated for use in drug dosing adjustments. Continue to use estimated creatinine clearance per dosing reference text. Please contact the Clinical Pharmacist for questions. Specimen Blood Performing Organization Address City/[facility] Code P shane Number MAIN LAB [address] [place] [address] * COVID-19 (SARS-COV-2) PCR (10/20/2020 12:53 PM CDT) COVID-19 FLOCKED SWAB [facility] (SARS-CoV-2) NASOPHARYNGEAL PCR Source COVID-19 NOT DETECTED DN-NOT DETECTED [facility] (SARS-CoV-2) Comment: PCR This assay is [...] performance characteristics have been verified by the [facility] clinical laboratory. Fact sheet for providers: https://www.fda.gov/media/1303 13/download Fact sheet for patients: https://www.fda.gov/media/6058 12/download Specimen Flocked Swab - Nasopharyngeal Performing Organization Address City/State/ZIP Code P shane Number [facility] [address] [place] [address] * BLOOD TYPE CONFIRMATION - ORDER ONLY IF REQUESTED BY LAB (10/20/2020 11:54 AM CDT) ABO/RH(D) O POS KU MAIN LAB Specimen Bowel Contents Performing Organization Address City/State/ZIP Code P shane Number KU MAIN LAB [address] [place] [address] * TYPE & CROSSMATCH (10/20/2020 11:33 AM CDT) Units Ordered 7 KU MAIN LAB Crossmatch 10/23/2020,2359 KU MAIN LAB Expires Record Check 2ND TYPE REQUIRED KU MAIN LAB ABO/RH(D) O POS KU MAIN LAB Antibody Screen NEG [facility]U MAIN LAB Electronic YES [facility]U MAIN LAB Crossmatch Unit Number [id number] KU MAIN LAB Blood Component RBC,ADSOL,LEUKO REDUCED,1ST KU MAIN L AB Type CONT. Unit Division 00 KU MAIN LAB Status OF Unit TRANSFUSED KU MAIN LAB ISSUE DATE TIME KU MAIN LAB PRODUCT CODE [id number] KU MAIN LAB BLOOD TYPE O POS KU MAIN LAB CODING STATUS 5100 KU MAIN LAB BLOOD [id number] KU MAIN LAB EXPIRATION DATE Transfusion OK TO TRANSFUSE KU MAIN LAB Status Crossmatch COMPATIBLE,ELECTRONIC [facility]U MAIN LAB Result Unit Number [id number] [facility] MAIN LAB Blood Component RBC,ADSOL,LEUKO REDUCED [facility]U MAIN LAB Type Unit Division 00 KU MAIN LAB Status OF Unit TRANSFUSED KU MAIN LAB ISSUE DATE TIME KU MAIN LAB PRODUCT CODE [id number] KU MAIN LAB BLOOD TYPE O POS KU MAIN LAB CODING STATUS 5100 KU MAIN LAB BLOOD [id number] KU MAIN LAB EXPIRATION DATE Transfusion OK TO TRANSFUSE KU MAIN LAB Status Crossmatch COMPATIBLE,ELECTRONIC [facility] MAIN LAB Result Unit Number [id number] [facility] MAIN LAB Blood Component RBC,ADSOL,LEUKO REDUCED [facility]U MAIN LAB Type Unit Division 00 KU MAIN LAB Status OF Unit TRANSFUSED KU MAIN LAB ISSUE DATE TIME KU MAIN LAB PRODUCT CODE [id number] KU MAIN LAB BLOOD TYPE O POS KU MAIN LAB CODING STATUS 5100 KU MAIN LAB BLOOD [id number] KU MAIN LAB EXPIRATION DATE Transfusion OK TO TRANSFUSE KU MAIN LAB Status Crossmatch COMPATIBLE,ELECTRONIC KU MAIN LAB Result Unit Number [id number] [facility] MAIN LAB Blood Component RBC,ADSOL,LEUKO REDUCED,2ND KU MAIN L AB Type CONT. Unit Division 00 KU MAIN LAB Status OF Unit TRANSFUSED KU MAIN LAB ISSUE DATE TIME KU MAIN LAB PRODUCT CODE [id number] KU MAIN LAB BLOOD TYPE O POS KU MAIN LAB CODING STATUS 5100 KU MAIN LAB BLOOD [id number] [facility] MAIN LAB EXPIRATION DATE Transfusion OK TO TRANSFUSE KU MAIN LAB Status Crossmatch COMPATIBLE,ELECTRONIC [facility]U MAIN LAB Result Unit Number [id number] [facility] MAIN LAB Blood Component RBC,ADSOL,LEUKO REDUCED [facility]U MAIN LAB Type Unit Division 00 KU MAIN LAB Status OF Unit TRANSFUSED KU MAIN LAB ISSUE DATE TIME [id number] KU MAIN LAB PRODUCT CODE [id number] KU MAIN LAB BLOOD TYPE O POS KU MAIN LAB CODING STATUS 5100 KU MAIN LAB BLOOD [id number] [facility] MAIN LAB EXPIRATION DATE Transfusion OK TO TRANSFUSE KU MAIN LAB Status Crossmatch COMPATIBLE,ELECTRONIC [facility] MAIN LAB Result Unit Number [id number] [facility] MAIN LAB Blood Component RBC,ADSOL,LEUKO REDUCED [facility]U MAIN LAB Type Unit Division 00 KU MAIN LAB Status OF Unit TRANSFUSED KU MAIN LAB ISSUE DATE TIME KU MAIN LAB PRODUCT CODE [id number] KU MAIN LAB BLOOD TYPE O POS KU MAIN LAB CODING STATUS 5100 KU MAIN LAB BLOOD [id number] KU MAIN LAB EXPIRATION DATE Transfusion OK TO TRANSFUSE KU MAIN LAB Status Crossmatch COMPATIBLE,ELECTRONIC [facility] MAIN LAB Result Specimen Lung Performing Organization Address [facility]/ZIP Code P shane Number KU MAIN LAB [address] [place] [address] * POC PT/INR (10/20/2020 9:13 AM CDT) INR POC 2.8 (H) 0.8 - 1.2 KU MAIN LAB Specimen Performing Organization Address City/[facility]/ZIP Code P shane Number KU MAIN LAB [address] [place] [address] * MAGNESIUM (10/20/2020 9:07 AM CDT) Magnesium 1.8 1.6 - 2.6 mg/dL K[facility] MAIN LAB Specimen Performing Organization Address [facility] Code P shane Number KU MAIN LAB [address] [place] [address] * PROTIME INR (PT) (10/20/2020 9:07 AM CDT) Pathologist [facility] INR 3.2 (H) 0.8 - 1.2 [facility] MAIN LAB Specimen Performing Organization Address City/[facility] Code P shane Number KU MAIN LAB [address] [place] [address] * BLUE TOP TUBE (10/20/2020 9:07 AM CDT) Specimen Performing Organization Address City/[facility] Code P shane Number KU LAB RESULTS * BASIC METABOLIC PANEL (10/20/2020 9:07 AM CDT) Pathologist [facility] Sodium 133 (L) 137 - 147 MMOL/L [facility] MAIN LAB Potassium 2.9 (L) 3.5 - 5.1 MMOL/L [facility] MAIN LAB Chloride 96 (L) 98 - 110 MMOL/L [facility] MAIN LAB CO2 26 21 - 30 MMOL/L [facility] MAIN LAB Anion Gap 11 3 - 12 [facility] MAIN LAB Glucose 136 (H) 70 - 100 MG/DL [facility] MAIN LAB Blood Urea 42 (H) 7 - 25 MG/DL [facility] MAIN LAB Nitrogen Creatinine 1.32 (H) 0.4 - 1.00 MG/DL [facility] MAIN LAB Calcium 8.4 (L) 8.5 - 10.6 MG/DL [facility] MAIN LAB eGFR Non 41 (L) >60 mL/min [facility] MAIN LAB Comment: [place] The eGFR is not validated f or use in drug dosing adjustments. Continue to use estimated creatinine clearance per dosing reference text. Please contact the Clinical Pharmacist for questions. eGFR 50 (L) >60 mL/min [facility] MAIN LAB [place] Comment: The eGFR is not validated for use in drug dosing adjustments. Continue to use estimated creatinine clearance per dosing reference text. Please contact the Clinical Pharmacist for questions. Specimen Blood Performing Organization Address City/[facility]/ZIP Code P shane Number KU MAIN LAB [address] [place] [address] * CBC (10/20/2020 9:07 AM CDT) Pathologist [facility] White Blood 7.8 4.5 - 11.0 K/UL MAIN LAB Cells RBC 1.96 (L) 4.0 - 5.0 M/UL [facility] MAIN LAB Hemoglobin 5.9 (LL) 12.0 - 15.0 GM/DL [facility] MAIN LAB Comment: CRITICAL VALUE CALLED TO AND READ BACK BY/TIME/TECH CHRYSTAL DENNISON at 10/20/2020 09:46:41 by 1949 Hematocrit 17.0 (L) 36 - 45 % MAIN LAB MCV 86.9 80 - 100 FL MAIN LAB MCH 30.1 26 - 34 PG MAIN LAB MCHC 34.7 32.0 - 36.0 G/DL MAIN LAB RDW 21.9 (H) 11 - 15 % MAIN LAB Platelet Count 200 150 - 400 K/UL MAIN LAB MPV 7.2 7 - 11 FL MAIN LAB Specimen Blood Performing Organization Address City/State/ZIP Code P shane Number MAIN LAB [address] [place] [address] * TELEMETRY STRIPS-SCAN (10/20/2020 12:00 AM CDT) [...] ot available. Ordered by an unspecified provider. documented in this encounter Visit Diagnoses Diagnosis Hematochezia Blood in stool documented in this encounter Admitting Diagnoses Diagnosis Chronic heart failure with preserved ej ection fraction (HCC) GI bleeding Hemorrhage of gastrointestinal tract, u nspecified documented in this encounter Administered Medications Action Date Dose Rate Site Medication Order MAR Action 10/23/2020 8:10 PM CDT 650 mg acetaminophen (TYLENOL) tablet 650 mg Given 650 mg, Oral, EVERY 4 HOURS PRN, Starting on Fri10/20/20 at 0846, Until Fri10/26/20 at 1248, Pain non-opioid: ma y be used alone or in combination with opioid analgesia, TOTAL ACETAMINOPHEN DOSE NOT TO EXCEED 4GM DAILY 650 mg Given 10/23/2020 2:39 AM CDT 650 mg Given 10/22/2020 5:01 PM CDT 650 mg Given 10/22/2020 2:42 PM CDT 650 mg Given 10/21/2020 8:07 PM CDT 10/22/2020 8:38 PM CDT 30 mL aluminum/magnesium hydroxide (MAALOX) Given oral suspension 30 mL 30 mL, Oral, EVERY 4 HOURS PRN, Starting on Fri10/20/20 at 0846, Until Fri10/26/20 at 1248, Indigestion/Heartburn 10/26/2020 8:11 AM CDT 3 mg bumetanide (BUMEX) tablet 3 mg Given 3 mg, Oral, TWICE DAILY, First dose (after last modification) on Fri10/26/20 at 0900, Until Discontinued 10/26/2020 9:52 AM CDT 1 g cefTRIAXone (ROCEPHIN) IVP 1 g Given 1 g, Intravenous, EVERY 24 HOURS, First dose (after last modification) on Fri10/24/20 at 1745, Until Discontinued, INSTR: IV PUSH -- RECONSTITUTE EACH 1 G M WITH 10 MLS of 0.9% NACL (NS) or STERIL E WATER (SW) or DEXTROSE 5% (D5W) 1 g Given 10/25/2020 4:14 PM CDT 1 g Given 10/24/2020 5:57 PM CDT diphenhydrAMINE (BENADRYL) injection 25 mg 25 mg, Intravenous, EVERY 4 HOURS PRN, Starting on Fri10/24/20 at 1134, Until Fri10/26/20 at 1248, Other..., IV iron infusion-related urticaria, If symptoms are rapidly progressing or continue after diphenhydramine, give epinephrine . docusate (COLACE) capsule 100 mg 100 mg, Oral, DAILY PRN, Starting on Fri10/20/20 at 0846, Until Toya 10/26/20 a t 1248, Constipation PO, Hold for loose stools. EPINEPHrine PF (ADRENALIN) injection 0. 3 mg 0.3 mg, Intramuscular, EVERY 5 MIN PRN , Starting on Fri10/24/20 at 1134, Until Fri10/26/20 at 1248, Other..., iron infusion reaction management or symptom s of anaphylaxis, If symptoms are rapidly progressing or continue after diphenhydramine, or patient has symptom s of anaphylaxis, give epinephrine. Max 4 doses. NOTE: This is a HIGH ALERT Medication. 10/21/2020 11:36 PM CDT 8 mL EPINEPHrine syringe Given INTRA-PROCEDURE MED, Starting on 10/21/20 at 2336, Until 10/22/20 at 0006, Intra-op 10/26/2020 7:13 AM CDT 1,101.5 Units/hr 13.8 mL/hr heparin (porcine) 20,000 Units in Given - New dextrose 5% (D5W) 250 mL IV infusion Bag (dbl conc) 0-2,000 Units/hr (0-25 mL/hr) 250 mL, at 0-25 mL/hr, Intravenous, TITRATE DIRECTED , Starting on Fri10/25/20 at 1745, Until Toya 10/26/20 at 1248, Weight-Based Heparin Algorithm (fluid restricted patients) - See separate order for Initial IV bolus (if ordered). - Initial IV infusion 15 units/kg/hr. Initial IV infusion not to exceed 1,700 units/hr. - Follow hepari n infusion scale - WITH ADJUSTMENT BOLUS for subsequent bolus and rate changes (see separate bolus order). Dbl conc = 80units/mL. NOTE: This is a HIGH ALERT Medication. 901.5 Units/hr 11.3 mL/hr Dose/Rate Verify 10/26/2020 1:06 AM CDT 901.5 Units/hr 11.3 mL/hr Given - New Bag 10/25/2020 6:45 PM CDT 10/26/2020 7:14 AM CDT 2,400 Units heparin (porcine) BOLUS for continuous Given inf (vial) 1,200-2,400 Units 1,200-2,400 Units (rounded from -2,404 Units = 20-40 Units/kg 60.1 kg) 2.4 mL, Intravenous, SEE ADMIN INSTRUCTIONS, Starting on Fri10/25/20 at 1740, Until Fri10/26/20 at 1248, ADJUSTMENT BOLUS (from vial) for hepari n drip -- Weight-Based Heparin Algorithm - Follow heparin infusion scale - WITH ADJUSTMENT BOLUS (see heparin infusion order administration instructions) for subsequent bolus and rate changes. - Administer adjustment bolus from vial. NOTE: This is a HIGH ALERT Medication. 10/26/2020 6:25 AM CDT 75 mcg levothyroxine (SYNTHROID) tablet 75 mcg Given 75 mcg, Oral, DAILY 30MIN BEFORE BREAKFAST, First dose on Fri10/20/20 at 1200, Until Discontinued, Give 1 hour before a meal. If patient is receiving tube feedings, hold tube feed 1hr befor e and 1hr after dose. 75 mcg Given 10/25/2020 6:12 AM CDT 75 mcg Given 10/24/2020 6:11 AM CDT 75 mcg Given 10/23/2020 6:16 AM CDT 75 mcg Given 10/22/2020 6:23 AM CDT 75 mcg Given 10/21/2020 6:47 AM CDT 75 mcg Given 10/20/2020 11:41 AM CDT 10/26/2020 12:31 AM CDT 3 mg melatonin tablet 3 mg Given 3 mg, Oral, AT BEDTIME PRN, Starting on Fri10/22/20 at 2044, Until Fri10/26/20 at 1248, Insomnia 3 mg Given 10/23/2020 8:10 PM CDT 3 mg Given 10/22/2020 9:03 PM CDT nitroglycerin (NITROSTAT) tablet 0.4 mg 0.4 mg, Sublingual, EVERY 5 MIN PRN, Starting on Fri10/20/20 at 0846, Until Toya 10/26/20 at 1248, Chest Pain, Not to exceed 3 doses per incident of chest pain. Notify physician if chest pain persists after 3 doses. 10/26/2020 9:57 AM CDT 4 mg ondansetron (ZOFRAN) injection 4 mg Given 4 mg, Intravenous, EVERY 6 HOURS PRN, Starting on Fri10/20/20 at 0919, Until Toya 10/26/20 at 1248, Nausea/Vomiting Injectable 4 mg Given 10/24/2020 8:38 AM CDT 4 mg Given 10/21/2020 7:57 PM CDT 4 mg Given 10/20/2020 3:32 PM CDT 4 mg Given 10/20/2020 9:25 AM CDT 10/25/2020 9:01 PM CDT [address] (PROTONIX) tablet 40 mg Given 40 mg, Oral, DAILY, First dose on Fri10/23/20 at 2100, Until Discontinued, Do not crush or chew tablet. 40 mg Given 10/24/2020 8:21 PM CDT 40 mg Given 10/23/2020 8:10 PM CDT 10/26/2020 8:12 AM CDT 20 mEq potassium chloride SR (K-DUR) tablet 20 Given mEq 20 mEq, Oral, THREE TIMES DAILY, First dose on Fri10/22/20 at 1145, Until Discontinued, - Tablet may be disperse d in water. Place tab in 30 mL of water for 40-60 seconds. - Gently swirl until fully dispersed. If particles remain after admin, add small amount of water and admin remaining content. - D O NOT CRUSH. Tablet may be split in half. Give with meal or full glass of water 20 mEq Given 10/25/2020 9:01 PM CDT 20 mEq Given 10/25/2020 2:13 PM CDT 20 mEq Given 10/25/2020 9:28 AM CDT 20 mEq Given 10/24/2020 8:21 PM CDT 20 mEq Given 10/24/2020 3:17 PM CDT 20 mEq Given 10/24/2020 8:38 AM CDT 20 mEq Given 10/23/2020 8:10 PM CDT 20 mEq Given 10/23/2020 2:37 PM CDT 20 mEq Given 10/23/2020 9:45 AM CDT 20 mEq Given 10/22/2020 8:38 PM CDT 20 mEq Given 10/22/2020 2:45 PM CDT 20 mEq Given 10/22/2020 11:16 AM CDT 10/21/2020 9:11 PM CDT 12.5 mg promethazine (PHENERGAN) injection 12.5 Given mg 12.5 mg, Intravenous, EVERY 6 HOURS PRN, Starting on Fri10/20/20 at 1626, Until Toya 10/26/20 at 1248, Nausea/Vomiting Injectable, PROTECT FRO M LIGHT For IV Administration: a. Dilute each dose with 10-20mL NS and administe r each dose slowly over at least 5 min through a running IV. Use lowest effective dose. b. Admin. through a large-bore vein (central venous site preferably). AVOID HAND OR WRIST VEINS UNLESS NO OTHER ALTERNATIVES ARE AVAILABLE. Do NOT administer intra-arterially. c. Check patency of site before admin. Inspect site around catheter tip and extremity for swelling , blanching, bleb formation, stretched an d firm skin or coolness. d. Remain in continual contact with the patient during admin. and for 5 minutes following to observe for adverse reactions and monitor injection site. e. Ask patient to report any burning o r discomfort during infusion. If extravasation is suspected, stop infusion immediately, implement Extravasation Management Protocol, and notify physician. 12.5 mg Given 10/20/2020 4:58 PM CDT 10/26/2020 8:11 AM CDT 100 mg sertraline (ZOLOFT) tablet 100 mg Given 100 mg, Oral, DAILY, First dose on Fri10/20/20 at 1315, Until Discontinued 100 mg Given 10/25/2020 9:28 AM CDT 100 mg Given 10/24/2020 8:38 AM CDT 100 mg Given 10/23/2020 9:45 AM CDT 100 mg Given 10/22/2020 9:31 AM CDT 100 mg Given 10/21/2020 10:09 AM CDT 10/21/2020 11:18 PM CDT 60 mL sterile water/simethicone irrigation Given INTRA-PROCEDURE MED, Starting on 10/21/20 at 2251, Until 10/22/20 at 0006, Intra-op 60 mL Given 10/21/2020 10:51 PM CDT 10/25/2020 9:01 PM CDT 5 mg warfarin (COUMADIN) tablet 5 mg Given 5 mg, Oral, AT BEDTIME DAILY, First dos e on Fri10/24/20 at 2100, Until Discontinued, NURSING: Provide patient with warfarin education leaflet. Do not give with cranberry juice. NOTE: This i s a HIGH ALERT Medication. 5 mg Given 10/24/2020 8:21 PM CDT warfarin, pharmacy to manage PER PHARMACY, 999 doses, Starting on 10/24/20 at 0905, Until Toya 10/26/20 at 1248, Warfarin Indication: Prosthetic cardiac valve, INR Goal: INR 2-3, This order is for informational use only. See separate order for administration and documentation of warfarin. NOTE: This is a HIGH ALERT Medication. documented in this encounter Discontinued Medications Start Date End Date Medication Sig Discontinue Reason 10/24/2020 FERROUS GLUCONATE PO Take 37.5 mg Removed from by mouth [employer] Med List every 48 hours. 08/01/2020 10/26/2020 spironolactone Take one (ALDACTONE) 100 mg tablet tablet by mouth daily for 360 days. Take with food. 08/08/2020 10/26/2020 metoprolol tartrate Take (LOPRESSOR) 25 mg tablet one-half tablet by mouth twice daily. 10/12/2020 10/26/2020 enoxaparin (LOVENOX) 60 Inject 0.6 mg syringe mL under the skin every 12 hours for 10 days. 06/12/2020 10/26/2020 warfarin (COUMADIN) 2.5 Take one Reorder mg tablet tablet by mouth daily. Take as directed by physician managing INR. 07/18/2020 10/26/2020 bumetanide (BUMEX) 2 mg Take 2.5 Reorder tablet tablets by mouth twice daily. documented as of this encounter Active and Recently Administered Medications Times are shown in CDT. 10/25/2020 10/26/2020 Medication Order 10/24/2020 0928 (Given - Provider: Shalonda Santizo RN ) bumetanide (BUMEX) injection 2 mg 0838 (Given - (CANCELED) Provider: Nupur 2 mg, Intravenous, TWICE DAILY, First Angie RN)17 58 dose on Fri10/22/20 at 1145, Until (Given - Provider: Discontinued, PROTECT FROM LIGHT Nupur Adams RN) 0811 (Given - Provider: Shalonda Santizo RN ) bumetanide (BUMEX) tablet 3 mg 3 mg, Oral, TWICE DAILY, First dose (after last modification) on Toya 10/26/20 at 0900, Until Discontinued 1614 (Given - Provider: Shalonda Santizo RN ) 0952 (Given - Provider: Shalonda Santizo RN - Comment: Per MD Arroyo, want to give before pt d/c) cefTRIAXone (ROCEPHIN) IVP 1 g 175 (Given - 1 g, Intravenous, EVERY 24 HOURS, First Provider[facility] 10/24/20 at 1745, Until Discontinued, INSTR: IV PUSH -- RECONSTITUTE EACH 1 G M WITH 10 MLS of 0.9% NACL (NS) or STERIL E WATER (SW) or DEXTROSE 5% (D5W) 0929 (Med Not Given - Provider: Shalonda jacques RN - Reason: Patient Refused)210 (Med Not Given - Provider: Elizabeth Stafford RN - Reason: Patient Refused) 08 (Med Not Given - Provider: Shalonda jacques RN - Reason: Patient Refused) fluticasone propionate (FLONASE) nasal 0933 (Med Not Given spray 1 spray - Provider: Lilly 1 spray, Each Nostril, TWICE DAILY, CHRYSTAL Walton - Surekha son: First dose on Fri10/20/20 at 1315, Until Patient Ref used)2022 Discontinued (Med Not Given - Provider: Elizabeth Stafford RN - Reason: Patient Refused) 0714 (Given - Provider: Shalonda Santizo RN - Comment: 2404 units) heparin (porcine) BOLUS for continuous inf (vial) 1,200-2,400 Units 1,200-2,400 Units (rounded from 1,202-2,404 Units = 20-40 Units/kg 60.1 kg) 2.4 mL, Intravenous, SEE ADMIN INSTRUCTIONS, Starting 10/25/20 at 1740, Until Toya 10/26/20 at 1248, ADJUSTMENT BOLUS (from vial) for hepari n drip -- Weight-Based Heparin Algorithm - Follow heparin infusion scale - WITH ADJUSTMENT BOLUS (see heparin infusion order administration instructions) for subsequent bolus and rate changes. - Administer adjustment bolus from vial. NOTE: This is a HIGH ALERT Medication. 184 (Given - Provider: Shalonda Santizo RN ) heparin (porcine) injection 4,210 Units (COMPLETED) 4,210 Units (rounded from 4,207 Units = 70 Units/kg 60.1 kg), Intravenous, ONCE, 1 dose, We d 10/25/20 at 1815, INITIAL BOLUS (from vial) for heparin drip -- Weight-Based Heparin Algorithm (fluid restricted patients) - Initial IV bolus: 70 units/kg - Not to exceed 7500 units - Administer initial bolus from vial. NOTE: This is a HIGH ALERT Medication. 0929 (Given - New Bag - Provider: Shalonda Santizo RN) 08 (Given - New Bag - Provider: Shalonda Santizo RN) iron sucrose (VENOFER) 300 mg in sodium 1332 (Given - New chloride 0.9% (NS) IVPB (COMPLETED) Bag - Provider: 300 mg, Intravenous, 115 mL, Administer Lilly Walton RN) over 150 Minutes, DAILY, 3 doses, First dose on Fri10/24/20 at 1245, Last dose o n Fri10/26/20 at 0900, -STOP infusion immediately, and notify physician for a new onset of the following: pruritis, facial flushing, chills, dyspnea, chest pain, back pain, hypotension, hypertension, lightheadedness, malaise, weakness, nausea, vomiting and diarrhea . -STOP infusion immediately, administer reaction management medication, call rapid response/code as appropriate and notify physician for a new onset of the following: diaphoresis, nausea, vomiting, severe low back pain, wheezin g for 20 min, and decreased level of consciousness, staggering, ataxia, increases in respiratory rate, tremor and convulsions. 0612 (Given - Provider: Jojo Mcelroy) 0625 (Given - Provider: Jojo Mcelroy) levothyroxine (SYNTHROID) tablet 75 mcg 06 (Given - 75 mcg, Oral, DAILY 30MIN BEFORE Provider: Maggi BREAKFAST, First dose on Fri10/20/20 at CHRYSTAL Salamanca) 1200, Until Discontinued, Give 1 hour before a meal. If patient is receiving tube feedings, hold tube feed 1hr befor e and 1hr after dose. 2100 (Given - Provider: Jojo Mcelroy) pantoprazole DR (PROTONIX) tablet 40 mg 2020 (Given - 40 mg, Oral, DAILY, First dose on Fri Provider: Christa al 10/23/20 at 2100, Until Discontinued, Do CHRYSTAL Stafford) not crush or chew tablet. 0928 (Given - Provider: Shalonda Santizo RN )1413 (Given - Provider: Shalonda Santizo RN)2100 (Given - Provider: Elizabeth Stafford RN) 08 (Given - Provider: Shalonda Santizo RN ) potassium chloride SR (K-DUR) tablet 20 0838 (Given - mEq Provider: Nupur 20 mEq, Oral, THREE TIMES DAILY, First CHRYSTAL Adams)1 517 dose on Fri10/22/20 at 1145, Until (Given - Provider: Discontinued, - Tablet may be dispersed Lilly valenzuela in water. Place tab in 30 mL of water RN)2020 (Given - for 40-60 seconds. - Gently swirl Provider: Kaye mackey until fully dispersed. If particles CHRYSTAL Stafford) remain after admin, add small amount of water and admin remaining content. - D O NOT CRUSH. Tablet may be split in half. Give with meal or full glass of water 0928 (Given - Provider: Shalonda Santizo RN ) 08 (Given - Provider: Shalonda Santizo RN ) sertraline (ZOLOFT) tablet 100 mg 0838 (Given - 100 mg, Oral, DAILY, First dose on Fri Provider: Noelle whitmore 10/20/20 at 1315, Until Discontinued CHRYSTAL Adams) 2100 (Given - Provider: Jojo Mcelroy) warfarin (COUMADIN) tablet 5 mg 2020 (Given - 5 mg, Oral, AT BEDTIME DAILY, First dose Provider: Randy ledezma on Fri10/24/20 at 2100, Until CHRYSTAL Stafford) Discontinued, NURSING: Provide patient with warfarin education leaflet. Do not give with cranberry juice. NOTE: This i s a HIGH ALERT Medication. 10/25/2020 10/26/2020 Medication Order 10/24/2020 1845 (Given - New Bag - Provider: Shalonda Santizo RN) 0106 (Dose/Rate Verify - Provider: Kaye Stafford RN - Comment: ptt 75.3, rate will remain 901.5 u/hr)0713 (Given - New Bag - Provider: Shalonda Santizo RN) heparin (porcine) 20,000 Units in dextrose 5% (D5W) 250 mL IV infusion (dbl conc) 0-2,000 Units/hr (0-25 mL/hr) 250 mL, at 0-25 mL/hr, Intravenous, TITRATE DIRECTED , Starting Fri10/25/20 at 1745, Until Toya 10/26/20 at 1248, Weight-Based Heparin Algorithm (fluid restricted patients) - See separate order for Initial IV bolus (if ordered). - Initial IV infusion 15 units/kg/hr. Initial IV infusion not to exceed 1,700 units/hr. - Follow hepari n infusion scale - WITH ADJUSTMENT BOLUS for subsequent bolus and rate changes (see separate bolus order). Dbl conc = 80units/mL. NOTE: This is a HIGH ALERT Medication. 10/25/2020 10/26/2020 Medication Order 10/24/2020 acetaminophen (TYLENOL) tablet 650 mg 650 mg, Oral, EVERY 4 HOURS PRN, Starting Fri10/20/20 at 0846, Until Fri10/26/20 at 1248, Pain non-opioid: may be used alone or in combination with opioi d analgesia, TOTAL ACETAMINOPHEN DOSE NOT TO EXCEED 4GM DAILY aluminum/magnesium hydroxide (MAALOX) oral suspension 30 mL 30 mL, Oral, EVERY 4 HOURS PRN, Starting Fri10/20/20 at 0846, Until Toya 10/26/20 at 1248, Indigestion/Heartburn diphenhydrAMINE (BENADRYL) injection 25 mg 25 mg, Intravenous, EVERY 4 HOURS PRN, Starting Fri10/24/20 at 1134, Until Fri10/26/20 at 1248, Other..., IV iron infusion-related urticaria, If symptoms are rapidly progressing or continue after diphenhydramine, give epinephrine . docusate (COLACE) capsule 100 mg 100 mg, Oral, DAILY PRN, Starting Fri10/20/20 at 0846, Until Toya 10/26/20 at 1248, Constipation PO, Hold for loose stools. EPINEPHrine PF (ADRENALIN) injection 0. 3 mg 0.3 mg, Intramuscular, EVERY 5 MIN PRN , Starting Fri10/24/20 at 1134, Until Toya 10/26/20 at 1248, Other..., iron infusion reaction management or symptoms of anaphylaxis, If symptoms are rapidly progressing or continue after diphenhydramine, or patient has symptom s of anaphylaxis, give epinephrine. Max 4 doses. NOTE: This is a HIGH ALERT Medication. 0031 (Given - Provider: Jojo Calzada) melatonin tablet 3 mg 3 mg, Oral, AT BEDTIME PRN, Starting Moran n 10/22/20 at 2044, Until Toya 10/26/20 at 1248, Insomnia nitroglycerin (NITROSTAT) tablet 0.4 mg 0.4 mg, Sublingual, EVERY 5 MIN PRN, Starting 10/20/20 at 0846, Until Toya 10/26/20 at 1248, Chest Pain, Not to exceed 3 doses per incident of chest pain. Notify physician if chest pain persists after 3 doses. 0957 (Given - Provider: Shalonda Santizo, CHRYSTAL ) ondansetron (ZOFRAN) injection 4 mg 0838 (Given - 4 mg, Intravenous, EVERY 6 HOURS PRN, Provider: Noelle whitmore Starting Fri10/20/20 at 0919, Until Toya CHRYSTAL Adams) 10/26/20 at 1248, Nausea/Vomiting Injectable promethazine (PHENERGAN) injection 12.5 mg 12.5 mg, Intravenous, EVERY 6 HOURS PRN, Starting Fri10/20/20 at 1626, Unti l Toya 10/26/20 at 1248, Nausea/Vomiting Injectable, PROTECT FROM LIGHT For IV Administration: a. Dilute each dose wit h 10-20mL NS and administer each dose slowly over at least 5 min through a running IV. Use lowest effective dose. b. Admin. through a large-bore vein (central venous site preferably). AVOI D HAND OR WRIST VEINS UNLESS NO OTHER ALTERNATIVES ARE AVAILABLE. Do NOT administer intra-arterially. c. Check patency of site before admin. Inspect site around catheter tip and extremity for swelling, blanching, bleb formation , stretched and firm skin or coolness. d. Remain in continual contact with th e patient during admin. and for 5 minutes following to observe for adverse reactions and monitor injection site. e. Ask patient to report any burning o r discomfort during infusion. If extravasation is suspected, stop infusion immediately, implement Extravasation Management Protocol, and notify physician. warfarin, pharmacy to manage PER PHARMACY, 999 doses, Starting 10/24/20 at 0905, Until Toya 10/26/20 at 1248, Warfarin Indication: Prosthetic cardiac valve, INR Goal: INR 2-3, This order is for informational use only. See separate order for administration and documentation of warfarin. NOTE: This is a HIGH ALERT Medication. documented in this encounter Orders First Ordered Date Medications Ordered That Might Not Have Count Last Ordered Date Been Administered bumetanide (BUMEX) tablet 2 mg 1 bumetanide (BUMEX) tablet 3 mg 1 021 heparin (porcine) 20,000 Units in 1 06/2020 dextrose 5% (D5W) 250 mL IV infusion (dbl conc) heparin (porcine) BOLUS for continuous 1 10/25/2020 inf (vial) 1,200-2,400 Units heparin (porcine) injection 4,210 Units 1 10/25/2020 cefTRIAXone (ROCEPHIN) IVP 1 g 1 021 10/21/2020 diphenhydrAMINE (BENADRYL) injection 25 2 10/24/2020 mg EPINEPHrine PF (ADRENALIN) injection 0.3 1 10/24/2020 mg ferrous sulfate (FEOSOL) tablet 325 mg 1 10/24/2020 iron sucrose (VENOFER) 300 mg in sodium 1 10/24/2020 chloride 0.9% (NS) IVPB warfarin (COUMADIN) tablet 5 mg 1 2020 warfarin, pharmacy to manage [address] (PROTONIX) tablet 40 mg 1 10/23/2020 bumetanide (BUMEX) injection 2 mg 1 03/2020 melatonin tablet 3 mg 1 10/22/2020 metoprolol tartrate tablet 12.5 mg 1 03/2020 potassium chloride SR (K-DUR) tablet 20 1 10/22/2020 mEq 10/20/2020 potassium chloride SR (K-DUR) tablet 60 2 10/22/2020 mEq fentaNYL citrate PF (SUBLIMAZE) 1 2020 injection 25 mcg fentaNYL citrate PF (SUBLIMAZE) 2 2020 injection 50 mcg metoclopramide (REGLAN) injection 10 mg 1 10/21/2020 promethazine (PHENERGAN) injection 6.25 1 10/21/2020 mg acetaminophen (TYLENOL) tablet 650 mg 1 10/20/2020 aluminum/magnesium hydroxide (MAALOX) 1 10/20/2020 oral suspension 30 mL amiodarone (CORDARONE) 360 mg in 1 10/20 dextrose, iso-osm 200 mL infusion aspirin tablet 325 mg 1 10/20/2020 cefTRIAXone (ROCEPHIN) IVP 2 g 1 021 docusate (COLACE) capsule 100 mg 1 10/20 fluticasone propionate (FLONASE) nasal 1 10/20/2020 spray 1 spray furosemide (LASIX) injection 40 mg 1 levothyroxine (SYNTHROID) tablet 75 mcg 1 10/20/2020 metoprolol (LOPRESSOR) injection 5 mg 1 10/20/2020 nitroglycerin (NITROSTAT) tablet 0.4 mg 1 10/20/2020 octreotide (SandoSTATIN) 500 mcg in 1 sodium chloride 0.9% (NS) 100 mL IV dri p (std conc) ondansetron (ZOFRAN) injection 4 mg 1 pantoprazole (PROTONIX) injection 40 mg 1 10/20/2020 potassium chloride in water IVPB 10 mEq 2 10/20/2020 promethazine (PHENERGAN) injection 12.5 1 10/20/2020 mg sertraline (ZOLOFT) tablet 100 mg 1 09/23 sodium chloride 0.9 % infusion 1 10/20 First Ordered Date Lab Orders Without Results Count Last Ordere d Date 10/20/2020 PREPARE RBC'S 5 10/22/2020 POC LACTATE 1 10/20/2020 First Ordered Date EKG Orders Without Results Count Last Ordere d Date 10/20/2020 ECG 12-LEAD 3 10/21/2020 First Ordered Date Diet Count Last Ordered Date DISCHARGE DIET CARDIAC 1 10/26/2020 First Ordered Date Nursing Count Last Ordered Date DISCHARGE ACTIVITY OTHER 1 10/26/2020 DISCHARGE CONTACT 2 10/26/2020 DISCHARGE ORDERS COMPLETE NOTIFICATION 1 10/26/2020 DISCHARGE SIGNS/SYMPTOMS 1 10/26/2020 DISCHARGE WOUND CARE 1 10/26/2020 RISK REDUCTION PLAN 1 10/26/2020 ENEMA 1 10/21/2020 EXTUBATE PATIENT PER ENDOTRACHIAL TUBE 1 10/21/2020 REMOVAL GUIDELINE NURSE COMMUNICATION 1 10/21/2020 10/20/2020 VITAL SIGNS FOR TRANSFUSION 5 10/21/2020 COVID-19 TESTING NOT REQUIRED 1 10/21/19 21 WEIGH PATIENT 1 10/20/2020 First Ordered Date Consult Count Last Ordered Date CONSULT DIETITIAN 1 10/24/2020 CONSULT HEART FAILURE PHYSICIAN 1 2020 CONSULT HEPATOLOGY PHYSICIAN 1 First Ordered Date Admission Count Last Ordered Date ADMIT TO INPATIENT 1 10/20/2020 First Ordered Date Discharge Count Last Ordered Date DISCHARGE PATIENT NOW 1 10/26/2020 First Ordered Date Vital Signs Count Last Ordered Date VITAL SIGNS 1 10/24/2020 First Ordered Date Activity Count Last Ordered Date MOBILITY 1 10/20/2020 First Ordered Date Cardiac Cath Count Last Ordered Date CARDIAC CATH REPORT 1 10/20/2020 First Ordered Date SPECIALITY EQUIPMENT Count Last Ordered Date COMMODE STANDARD 300LBS MAX 1 10/24/2020 First Ordered Date Order Set Communication Count Last Ordered D ate PLATELET MONITORING PER UFH PROTOCOL 1 0 10/25/2020 VTE DRUG PROPHYLAXIS CONTRAINDICATED 1 0 10/20/2020 First Ordered Date Appointment Request Count Last Ordered Date APPOINTMENT REQUEST: CARDIOLOGY HEART 1 10/25/2020 FAILURE First Ordered Date Appointment Count Last Ordered Date REQUEST FOR CARDIOLOGY APPOINTMENT 1 06/2020 First Ordered Date Intake & Output Count Last Ordered Date INTAKE AND OUTPUT 1 10/20/[address] & Maintain Count Last Ordered Date PLACE AND MAINTAIN SCD 1 10/20/2020 First Ordered Date ADT Patient Update Count Last Ordered Date CHANGE SERVICE / LEVEL OF CARE (NO BED 1 10/20/2020 REQUEST) documented in this encounter Additional Health Concerns Assessment Noted Time A fall risk assessment has been completed for the pat ient 10/26/2020 8:00 AM CDT PHQ-2 Depression Total Score: 0 08/24/2020 7:42 AM CDT documented as of this encounter
--- OUTSIDE RECORDS SUMMARY | 2020-11-04 12:22 | XMS REPORT | Encounter Summary ---
Author Author [facility] Organization [facility] Address Unknown Phone Unavailable Care Team Providers Care Field Care Manager Name Role Phone Self, Garfield OLVERA PCP Riley Hopson MD 3 Reason for Referral * Consultation (Discharge Pending) Referred By Contact Referred To Contact Status Reason Specialty Diagnoses / Procedures Shruti Newberry PA-C [address] [place] [id number] [place] [address] [facility] [address] [place] [address] 1, [address] [place] [address] New Request Cardiology Procedures APPOINTMENT REQUEST: CARDIOLOGY HEART FAILURE Electronically signed by Shruti Newberry PA-C at Reason for Visit * Auth/Cert Referred By Contact Referred To Contact Status Reason Specialty Diagnoses / Procedures Diagnoses Chronic heart failure with preserved ejection fraction (HCC) Procedures MO UNLISTED CARDIOVASCULAR SERVICE/PROCEDURE CATHETERIZATION RIGHT HEART WITH INSERTION PULMONARY ARTERY SENSOR Encounter Details Care Team Description Date Type Department Nadege Davis MD [address] [place] [phone] Vijaya Millard MD [address] [place] [address] [phone] Duyen Arroyo DO [address] [place] [address] [phone] GI bleeding 10/20/2020 [facility] Patient Care Unit H C7: - Encounter [facility] 10/26/2020 Care [address] [facility]. 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 Date Recorded COVID-19 Exposure Response 10/20/2020 8:33 [...] (98.6 F) 10/26/2020 8:00 AM CDT Temperature - - Respiratory Rate 100% 10/26/2020 8:00 AM CDT Oxygen Saturation - - Inhaled Oxygen Concentration 60.4 kg (133 lb 3.2 oz) 10/26/2020 4:00 AM CDT Weight 157.5 cm (5' 2") 10/23/2020 5:23 PM CDT Height 24.36 10/23/2020 5:23 PM CDT Body Mass Index documented in this encounter Functional Status Date of Assessment Functional Status Response 10/23/2020 Does the patient have a hearing impairment: No 09/21/2020 Does the patient have a visual impairment: Yes 09/21/2020 Does the patient have impaired ambulation: Yes 09/21/2020 Does the patient have an activity of daily living No (ADL) impairment: 09/21/2020 Does the patient have an instrumental activity of No daily living (IADL) impairment: Date of Assessment Cognitive Status Response 09/21/2020 Does the patient have a cognitive impairment: No documented as of this encounter Discharge Summaries * Duyen Arroyo DO - 10/26/2020 10:40 AM CDT Discharge Summary Name: Zaria Paulson Date Of : 1960 Age: 60 years Admit date: 10/20/2020 Discharge date: 10/26/2020 Discharge Attending: Duyen Arroyo Discharge Summary Completed By: Duyen Arroyo DO Service: [facility] 6154 Reason for hospitalization: Chronic heart [...] Lovenox bridge for 7 days and to [facility] k INR on 10/27. Patient is to [...] Hospital Follow Up with [facility] Cardiology: [facility] (CVM Exam) [address] [place] [address], [address] [facility] [address] Nov 15, 2020 2:15 PM (Arrive by 2:[address]) [address] [facility] Laboratory: [facility] (--) [address] [place] [phone] Nov 15, 2020 2:30 PM Return Patient with [facility] Cardiology: [facility] (CVM Exam) [address] [place] [phone] Dec 19, 2020 12:00 PM Return Patient with Allison Marti MD Transplant: [facility] ([facility]) [address], [address] [facility] [address] Consults, Procedures, Diagnostics, Micro, Pathology Consults: Cardiology and Hepatology Surgical Procedures & Dates: None Significant Diagnostic Studies, Micro and Procedures: noted in brief hospital co urse Significant Pathology: noted in brief hospital course Nutrition: Dietitian Documentation Muscle Wasting: Yes Moderate Clavicle, Caodaism Edema: No Discharge Disposition, Condition Patient Disposition: Home Condition at Discharge: Stable Code Status Code Status History Date Active Date Inactive Code Status Order ID 10/20/2020 1221 10/26/2020 1253 Full Code [id number] Vijaya Millard MD Inpatient 10/20/2020 0846 10/20/2020 1221 Full Code [id number] Crissy Gould PA-C I npatient Only showing the last 2 code statuses. Patient Instructions PROTIME INR (PT) Standing Status: Future Standing Exp. Date: 10/26/21 Which provider would you like to CC? SHRUTI NEWBERRY [[id number]] Release to patient Immediate BASIC METABOLIC PANEL Standing Status: Future Standing Exp. Date: 10/26/21 Which provider would you like to CC? SHRUTI NEWBERRY [[id number]] Release to patient Immediate Cardiac Diet Limiting [...] home, you may contact a dietitian magalys gasca . Report These Signs and Symptoms Please [...] To register for smoking cessation program call [phone] or visit www.smokefree.gov Diabetes Risk Goal: Non-diabetic: [...] you can call a conchita carmona at [phone] Physical Activity Risk Goal: Patients should have approval by a physician prior to beginning an exercis e program. Plan: Try to get at least 30 minutes of moderate physical activity five days a w [place] or 20 minutes of vigorous physical activity [...] HOURS (8:00 AM - 4:30 PM): Call [phone] and asked to be transferred to your discharge attending physic mg. - AFTER BUSINESS HOURS (4:30 PM - 8:00 AM, on weekends, or holidays): Call [phone] and ask the kelly machine operator to page the on-call doctor for the discha rge attending physician. Discharging attending physician: NADEGE DAVIS [[id number]] Procedure Specific Activity *Resume your normal activity in 2 days. Incision Care *Call if there is an increase in pain, swelling, or redness. *DO NOT soak incision in water. *NO tub baths, hot tubs, or swimming. *You may shower after discharge. Testing Not Required for Covid-19 Questions About Your Stay For questions or concerns regarding your hospital stay, call [phone]. Discharging attending physician: DUYEN ARROYO [[id number]] Appointment Request: Cardiology Heart Failure Please arrange [...] be scheduled outside of 7 day wi nd, if unavailable) Expected date of discharge: 10/26/20 Ordering Provider's or Responsible Teams's Pager #? [phone] Additional Orders: Case Management, Supplies, Home Health Home Health/DME None Signed: Duyen Arroyo DO 10/26/2020 cc: Primary Care Physician: Garfield Gray Referring physicians: Nithya Madison, APR* Additional provider(s): Did we miss something? If additional records are needed, please fax a request on office letterhead to [phone]. Please include the patient's name, date of b irth, fax number and type of information needed. Additional request can be made by email at [email or web address]. For general questions of information about electronic records sharing, call [phone]. documented in this encounter Medications at Time [...] follow up/discharge instructions, occurred wi th patient [id number]. Duyen Arroyo DO 10/26/2020 Discharge Planning: greater than 30 minutes spent in pt dc care today spent coun seling pt, coordinating dc care, placing dc orders and helping complete dc summa ry. * Elizabeth Stafford, RN - 10/26/2020 6:18 AM CDT Heart Failure [...] 60%/RV failure, severe TR, Cirrhosis, nonischemic cardiomyopathy ([facility] 05/2020 no CAD), Mechanical aortic valve implanted [...] mg po bid starting 10/26/20 (ordere d). BARREL WATERER she has been taking Bumetanide 5 mg [...] 10/24/2020. INR 1.8 on 10/24/20. 5. Recommend Dump Operator consultation to discuss sodium restricted diet as [...] Shruti Newberry PA-C Department of Cardiovascular Medicine [facility] Available on Voalte/AMS/Pager [phone] Assessment: Acute on Chronic diastolic HFpEF, EF: 60% NYHA class III, ACC Stage C/predomina ntly RV failure Major Complications or Comorbidities (FPC): acute/ acute on chronic systolic and /or [...] kg (132 lb 6.4 oz) Recommendations: GDMT BARREL WATERER Changes BB Lopressor 12.5 mg twice daily -10/23 did not receive PM dose 83 Am dose held. BB discontinued due to [...] 06/06/2020 Performed by Bao Hernández MD at [facility] COLONOSCOPY DIAGNOSTIC WITH SPECIMEN COLLECTION BY BRUSHING/ WASHING - FLEXI BLE N/A 06/06/2020 Performed by Bao Hernández MD at [facility] ANGIOGRAPHY CORONARY ARTERY WITH RIGHT AND LEFT HEART CATHETERIZATION N/A Performed by Higinio Clarke MD at [facility] POSSIBLE PERCUTANEOUS CORONARY STENT PLACEMENT WITH ANGIOPLASTY N/A Performed by Higinio Clarke MD at [facility] ESOPHAGOGASTRODUODENOSCOPY WITH SPECIMEN COLLECTION BY BRUSHING/ WASHING N/A 10/21/2020 Performed by Cosmo Gomez MD at [facility] SIGMOIDOSCOPY WITH CONTROL OF BLEEDING - FLEXIBLE N/A 10/21/2020 Performed by Cosmo Gomez MD at [facility] SIGMOIDOSCOPY WITH DIRECTED SUBMUCOSAL INJECTION - FLEXIBLE 10/21/2020 Performed by Cosmo Gomez MD at [facility] Family History Problem Relation Age of [...] tablet 3 mg, 3 mg, Oral, B ID(-) cefTRIAXone (ROCEPHIN) IVP 1 g, 1 g, [...] 500 mg by mouth daily. Past W [place] bumetanide (BUMEX) 2 mg tablet Take 2.5 [...] implantation, procedure deferred for now - Hold BARREL WATERER aldactone, bumex, metolazone, metoprolol due to severe [...] m oderate ascites and body wall edema -BARREL WATERER Bumex 5 mg BID, Spironolactone 100 mg [...] seen/discussed with Dr. Ok Dominguez GI Fellow 1079 PMH: Medical History: Diagnosis Date Cancer (HCC) [...] 06/06/2020 Performed by Bao Hernández MD at [facility] COLONOSCOPY DIAGNOSTIC WITH SPECIMEN COLLECTION BY BRUSHING/ WASHING - FLEXI BLE N/A 06/06/2020 Performed by Bao Hernández MD at [facility] ANGIOGRAPHY CORONARY ARTERY WITH RIGHT AND LEFT HEART CATHETERIZATION N/A Performed by Higinio Clarke MD at [facility] POSSIBLE PERCUTANEOUS CORONARY STENT PLACEMENT WITH ANGIOPLASTY N/A Performed by Higinio Clarke MD at [facility] ESOPHAGOGASTRODUODENOSCOPY WITH SPECIMEN COLLECTION BY BRUSHING/ WASHING N/A 10/21/2020 Performed by Cosmo Gomez MD at [facility] SIGMOIDOSCOPY WITH CONTROL OF BLEEDING - FLEXIBLE N/A 10/21/2020 Performed by Cosmo Gomez MD at [facility] SIGMOIDOSCOPY WITH DIRECTED SUBMUCOSAL INJECTION - FLEXIBLE 10/21/2020 Performed by Cosmo Gomez MD at [facility] SH: Social History Socioeconomic History Marital [...] pertinent documentation Physical Exam: Vitals: 10/24/20 1735 10/24/20199910/25/20 0006 10/25/20 0400 BP: 92/61 90/64 (!) [...] GI b leeding, please page GI fellow guest relations manager. Consider future EGD to evaluate for Castellanos's. [...] 60%/RV failure, severe TR, Cirrhosis, nonischemic cardiomyopathy ([facility] 05/2020 no CAD), Mechanical aortic valve implanted [...] Cr. Is improvi ng. Consider transitioned to BARREL WATERER dose to bumetanide 2.5 mg p.o. twice [...] 10/24/2020. INR 1.8 on 10/24/20. 6. Recommend Dump Operator consultation to discuss sodium restricted diet as [...] Shruti Newberry PA-C Department of Cardiovascular Medicine [facility] Available on Voalte/AMS/Pager [phone] Assessment: Acute on Chronic diastolic HFpEF, EF: 60% NYHA class III, ACC Stage C/predomina ntly RV failure Major Complications or Comorbidities (FPC): acute/ acute on chronic systolic and /or [...] kg (131 lb 12.8 oz) Recommendations: GDMT BARREL WATERER Changes BB Lopressor 12.5 mg twice daily [...] 06/06/2020 Performed by Bao Hernández MD at [facility] COLONOSCOPY DIAGNOSTIC WITH SPECIMEN COLLECTION BY BRUSHING/ WASHING - FLEXI BLE N/A 06/06/2020 Performed by Bao Hernández MD at [facility] ANGIOGRAPHY CORONARY ARTERY WITH RIGHT AND LEFT HEART CATHETERIZATION N/A Performed by Higinio Clarke MD at [facility] POSSIBLE PERCUTANEOUS CORONARY STENT PLACEMENT WITH ANGIOPLASTY N/A Performed by Higinio Clarke MD at [facility] ESOPHAGOGASTRODUODENOSCOPY WITH SPECIMEN COLLECTION BY BRUSHING/ WASHING N/A 10/21/2020 Performed by Cosmo Gomez MD at [facility] SIGMOIDOSCOPY WITH CONTROL OF BLEEDING - FLEXIBLE N/A 10/21/2020 Performed by Cosmo Gomez MD at [facility] SIGMOIDOSCOPY WITH DIRECTED SUBMUCOSAL INJECTION - FLEXIBLE 10/21/2020 Performed by Cosmo Gomez MD at [facility] Family History Problem Relation Age of Onset [...] 500 mg by mouth daily. Past [place] bumetanide (BUMEX) 2 mg tablet Take 2.5 [...] implantation, procedure deferred for now - Hold BARREL WATERER aldactone, bumex, metolazone, metoprolol due to severe [...] the past 24 hours, resuming warfarin with angella nieves to dose Mechanical aortic valve - Open [...] further evaluation and management of principl e dandy Arroyo, DO Internal Medicine Med Private L [...] (10/24 0300) Height: 157.5 cm (62") (10/23 172) BP: (80-92)/(52-67) Temp: [36.4 C (97.5 F)-36.7 [...] EKG Reviewed Duyen Arroyo DO * Heaven Lewis, DONNAD - 10/24/2020 8:39 AM CDT Pharmacy Warfarin [...] Plan: 1. Will re-initiate patient on her BARREL WATERER dose of 5mg. Discussed with provider an [...] implantation, procedure deferred for now - Hold BARREL WATERER aldactone, bumex, metolazone, metoprolol due to severe [...] 10/19 PM. - INR on admission 2.8 8/ - S/p 1 unit of FFP due [...] 2 mg, Intravenous, BID(-17) cefTRIAXone (ROCEPHIN) IVP 2 g, 2 g, Intravenous, Q24H* fluticasone propionate (FLONASE) nasal spray 1 spray, 1 spray, Each Nostril, BID levothyroxine (SYNTHROID) tablet 75 mcg, 75 mcg, Oral, QDAY 30 min before breakf ast metoprolol tartrate tablet 12.5 mg, 12.5 mg, Oral, BID pantoprazole (PROTONIX) injection 40 mg, 40 mg, Intravenous, BID(02-11) potassium chloride SR (K-DUR) tablet 20 mEq, [...] % (10/24 835) SpO2 Pulse: 89 (10/23 0600) BP: (81-102)/(56-64) Temp: [36.3 C (97.4 F)-36.9 C (98.5 F)] Pulse: [87-97] Respirations: [18 PER MINUTE-24 PER MINUTE] SpO2: [97 %-100 %] Intensity Pain Scale (Self Report): Asleep (10/22/20 2318) There were no vitals filed for this visit. Intake/Output Summary: (Last 24 hours) Intake/Output Summary (Last 24 hours) at 10/23/2020 0928 Last data filed at 10/22/2020 2121 Gross [...] m oderate ascites and body wall edema -BARREL WATERER Bumex 5 mg BID, Spironolactone 100 mg [...] seen/discussed with Dr. Ok Dominguez GI Fellow 3739 PMH: Medical History: Diagnosis Date Cancer (HCC) [...] 06/06/2020 Performed by Bao Hernández MD at [facility] COLONOSCOPY DIAGNOSTIC WITH SPECIMEN COLLECTION BY BRUSHING/ WASHING - FLEXI BLE N/A 06/06/2020 Performed by Bao Hernández MD at [facility] ANGIOGRAPHY CORONARY ARTERY WITH RIGHT AND LEFT HEART CATHETERIZATION N/A Performed by Higinio Clarke MD at [facility] POSSIBLE PERCUTANEOUS CORONARY STENT PLACEMENT WITH ANGIOPLASTY N/A Performed by Higinio Clarke MD at [facility] SH: Social History Socioeconomic History Marital status: [...] GI bleeding, please p age GI fellow guest relations manager. Can consider future EGD to evaluate for [...] RN - 10/22/2020 8:42 PM CDT 2041: MPL notified regarding patients low BP of 81/60. [...] implantation, procedure deferred for now - Hold BARREL WATERER aldactone, bumex, metolazone, metoprolol due to severe [...] Open heart surgery at age 16 in 1976 for aortic valve repair. Developed CHF an [...] Signs: 24 Miguel r Range BP: 97/66 (10/22 599) Temp: 36.1 [...] Reviewed Duyen Arroyo DO * Claudette Walton APRN-FISCAL SERVICES MANAGER - 10/22/2020 7:39 AM CDT Heart Failure [...] be severely anemic and was [facility] for acute GI bleed. She has medical history significant for cirrho sis, heart failure with preserved ejection fraction (60%), nonischemic cardiomyo yolanda ([facility] 05/2020 no CAD), mechanical aortic valve implanted [...] seen and examined with Dr.Vidic Claudette Walton, , FISCAL SERVICES MANAGER [id number] Assessment: Acute on Chronic diastolic HFpEF, EF: [...] made with a prior transthoracic echocardiogram performed 1. There has been interval increase in estimated pulmonary artery systolic pres sure. Previously 64 mmHg. Otherwise, no significant changes have occurred. Major Complications or Comorbidities (FPC): acute/ acute on chronic systolic and /or [...] vitals filed for this visit. Recommendations: GDMT BARREL WATERER Changes BB Lopressor 12.5 mg twice daily [...] Yes Strict I/O. Standing scale daily weight. Dump Operator consultation to discuss sodium restricted diet recommended. [...] 06/06/2020 Performed by Bao Hernández MD at [facility] COLONOSCOPY DIAGNOSTIC WITH SPECIMEN COLLECTION BY BRUSHING/ WASHING - FLEXI BLE N/A 06/06/2020 Performed by Bao Hernández MD at [facility] ANGIOGRAPHY CORONARY ARTERY WITH RIGHT AND LEFT HEART CATHETERIZATION N/A Performed by Higinio Clarke MD at [facility] POSSIBLE PERCUTANEOUS CORONARY STENT PLACEMENT WITH ANGIOPLASTY N/A Performed by Higinio Clarke MD at [facility] Family History Problem Relation Age of Onset [...] 0.6 mL under the skin every 12 migule rs for 10 days. 20 each 0 [...] (10/22 599) Height: 157.5 cm (5' 2.01") (10/22 955) BP: (93-127)/(56-84) Temp: [36.1 C (97 F)-37.1 [...] the treatment plan as outlined by the FISCAL SERVICES MANAGER The Complexity of medical decision making is [...] impression and plan outlined by the resident, l and agree with my edits as outlined below. Staff division chief: Shanell Ybarra DO * Cosmo Gomez MD - 10/22/2020 12:43 AM CDT Gastroenterology/Hepatology [...] Recent Labs 10/20/20 0907 10/20/20 1529 10/20/20 17110/20/20171110/21/20 0515 10/21/20 0515 10/22/20 0312 NA 133* < > 134* -- 135* [...] 10/20/20 17110/20/20 2215 10/21/20 0515 10/21/20 0950 10/21/20 1846 [...] bleeding by tomorrow diet can be advanced Nizar Talaat Gastroenterology/Transplant Hepatology * Jesus Senior MD - [...] and infuse RBC's. RN advised fellow that p divya does have heart failure and plasma is [...] to patient. RN gave report to Prepost RN Javi. 2015: prepost nurse at bedside. Patient cleaned up and taken off bedpad. 550ml o ut of bright red blood. Both RN's transported patient to Preop. Blood also relea sed at this time. 2030: Patient in PrePost. * Cosmo Gomez MD [...] 10/20/20 0907 10/20/20 1529 10/20/20 1529 10/20/20 1712 10/20/20 1712 10/21/20 0515 NA 133* < > 132* -- [...] 1712 10/20/20 2215 10/21/20 0515 10/21/20 0950 WBC 7.8 [...] implantation, procedure deferred for now - Hold BARREL WATERER aldactone, bumex, metolazone, metoprolol due to severe [...] problem Duyen Arroyo, DO Internal Medicine Med [facility] L Total time spent was greater than 35 minutes of which greater than 50% was spent [id number] with the patient in care coordination (reviewing the records, phar lizbeth, documentation, discussion with the nurse, mattress spring encaser and the social work , discussion with dairy feed sales consultant services) and bedside counseling. Subjective Zaria [...] 0515) POC Glucose (Download): (!) 152 (10/20/20 171) Radiology and other Diagnostics Review: Pertinent radiology reviewed., EKG Reviewed Duyen Arroyo DO * Miracle Dennison RN - 10/20/2020 6:34 PM CDT Pt transported to [facility] on bedside monitor following Rapid response. [...] medication management. Javi Tillman MD, FACP Clinical Terrazzo Laborer Internal Medicine, [facility] Medicine Pager: [phone] * Yahaira Hewitt RN - 10/20/2020 5:09 [...] 10/20/2020 10:00 AM CDT On arrival to [facility] pt mentioned she had been experiencing [...] fraction, nonischemic cardiomyopathy,s/paortic valve replacement x3 (on retail and promotions coordinator shantanu anticoagulation for mechanical valve),paroxysmal atrial fibrillation, hy pertension, previous endocarditis,iron deficiency anemia (IV iron given), retail and promotions coordinator shantanu kidney disease,hypothyroidism, depression, non-Hodgkins lymphoma and [...] hemorrhoids. Crissy Gould PA-C Interventional Cardiology Pager [phone] * Adriana Leblanc RN - 10/19/2020 9:14 AM CDT Cardiovascular Labs Scheduling Checklist 1. Date of procedure:10/20 2. Arrival time: 0900 3. Patient instructed NPO after MN; clear liquids until: 0800 4. Instructed to check-in at the [facility] registration desk and bring phot o id, insurance cards and a current list of home medications. Pack an overnight bag in the event you are admitted overnight: Y 5. If you have a history of sleep apnea and use a C-Pap or Bi-Pap machine, pleas e bring it with you to the hospital: N 6. Have a recycle driver available upon discharge as you may not be cleared to drive for 24 or 48 hours post procedure. (exception is RHC/biopsy patient with internal j ugular approach not receiving sedation): Y 7. If the patient's language preference is other than Senegalese, please indicated [place] language and need for wool and pelt grader: N 8. Patient instructed to drink 64 [...] No need for bowel prep, will ad habilitation specialist enema tomorrow - Transfuse to keep Hb>7, 2 units ordered for now. Patient consented - Last iron infusion in August 2020. EGD in May 2020 essentially normal. C-scope in May 2020 with angiectasia, treated with argon plasma. Chronic HFpEF without acute exacerbation Pulmonary HTN with chronic cor pulmonale - Originally presented for CardioMEMs implantation, procedure deferred for now - Hold BARREL WATERER aldactone, bumex, metolazone, metoprolol due to severe [...] - Discussed with patient. - Admit to [facility] with hepatology and heart failure consults. Total 70 minutes spent in patient care performing history and physical, clarifyi ng medical history, reviewing prior visits with patient, checking facts, reviewi recommendations, placing orders for admission, 35 minutes were spent in [facility] and coordination of care. An additional 40 minutes were spent reviewing records in [facility] and prior hospital izations, clinic visit notes and labs and imaging results. __ Primary Care Physician: Garfield Gray Verified Chief Complaint: Bright red blood per rectum. History of Present Illness: Zaria Paulson is a 60 y.o. female with history of liver cirrhosis, HFpEF, NICM, S/P mechanical aortic valve on coumadin, atrial f ibrillation and previously treated non-Hodgkin's lymphoma who [facility] CardioMEMs but was [...] was lightheaded when she got her up earli er in the day. Blood pressure tends [...] 06/06/2020 Performed by Bao Hernández MD at [facility] COLONOSCOPY DIAGNOSTIC WITH SPECIMEN COLLECTION BY BRUSHING/ WASHING - FLEXI BLE N/A 06/06/2020 Performed by Bao Hernández MD at [facility] ANGIOGRAPHY CORONARY ARTERY WITH RIGHT AND LEFT HEART CATHETERIZATION N/A Performed by Higinio Clarke MD at [facility] POSSIBLE PERCUTANEOUS CORONARY STENT PLACEMENT WITH ANGIOPLASTY N/A Performed by Higinio Clarke MD at [facility] Family History Problem Relation Age of Onset [...] tablets by mouth twice daily. calcium carbonate (OS-RKUPA) 1250 mg tablet 10/19/2020 Self Yes No [...] Ref Range Units Ordered 2 Crossmatch Expires 10/23/2020,2359 Record Check 2ND TYPE REQUIRED ABO/RH(D) O POS Antibody Screen NEG Electronic Crossmatch YES Unit Number [id number] Blood Component Type RBC,ADSOL,LEUKO REDUCED,1ST CONT. Unit Division 00 Status OF Unit ISSUED ISSUE DATE TIME PRODUCT CODE [id number] BLOOD TYPE O POS CODING STATUS 5100 [...] below. Crissy Gould PA-C Interventional Cardiology Pager [phone] Progress Notes Nithya Madison (Scottie Ragsdale, RYAN-FISCAL SERVICES MANAGER (Nurse Practitioner) Nurse Practitpurvi judd 10/12/20 1130 Signed Date of Service: 10/12/2020 Zaria Paulson is a 60 y.o. female. She is followed by Dr. Longo HPI Her past medical history is significant for heart failure with preserved ejectio n fraction, nonischemic cardiomyopathy, s/p aortic valve replacement x3 (on retail and promotions coordinator shantanu anticoagulation for mechanical valve), paroxysmal atrial fibrillation, hyp ertension, previous endocarditis, iron deficiency anemia -received IV iron, retail and promotions coordinator shantanu kidney disease, hypothyroidism, depression, non-Hodgkins lymphoma [...] 06/06/2020 Performed by Bao Hernández MD at [facility] COLONOSCOPY DIAGNOSTIC WITH SPECIMEN COLLECTION BY BRUSHING/ WASHING - FLEXI BLE N/A 06/06/2020 Performed by Bao Hernández MD at [facility] ANGIOGRAPHY CORONARY ARTERY WITH RIGHT AND LEFT HEART CATHETERIZATION N/A Performed by Higinio Clarke MD at [facility] POSSIBLE PERCUTANEOUS CORONARY STENT PLACEMENT WITH ANGIOPLASTY N/A Performed by Higinio Clarke MD at [facility] Family History Problem Relation Age of Onset [...] EF of 60%. -GDMT:Spironolactone 100 mg daily, [id number] twice daily, metolazone 2.5 mg twice weekly [...] concerns prior to the next appointment. Total [id number]. Estimated counseling [id number]. Thank you for allowing me to participate in the care of this patient. If you hav e any questions please do not hesitate to contact our office. Berna Madison, DNP, SPECIAL EDUCATION DIRECTOR, FISCAL SERVICES MANAGER-C Collaborating Physician: Dr. Ramo Lamb Mears for [facility] at [facility] Current Medications (including today's revisions) ascorbic acid [...] trying to finish a can o f [email or web address] O's. She reports she has had low serum sodium in the past and was to ld she didn't have to follow a special diet. Her son encourages her to increase her protein intake, he bought her unflavored protein powder. She lives at home a nd her prepares her meals. Reviewed a low sodium, high protein heart [facility] diet. Reviewed good protein sources, along with [...] synthroid, zofran, protonix; Oral Diet Order: Cardiac;Diabetic 9789-3912 Kcal/day (60 g carb/meal, 30 g carb/ HS snack); Current Oral Intake: Marginally Adequate Estimated Calorie Needs: 1800(30kcal/kg/present wt) Estimated Protein Needs: 72-84(1.2-1.4g/kg/present wt) Malnutrition Assessment: Does not meet criteria; ; ; ; ; Nutrition Focused Physical Assessment: ; ; Muscle Wasting: Yes; Severity: Moderate; Location: Clavicle, Caodaism Edema: No; ; Pressure Injury: none noted [...] Time Frame: Within 72 hours Brigitte Barlow, MS, RD, SCIENTIFIC MANAGER, LD, CCTD Office: [phone] Available on Voalte * Claudette Walton APRN-FISCAL SERVICES MANAGER - 10/21/2020 8:23 AM CDT Associated Order(s): [...] be severely anemic and was admitted [facility] for acute GI bleed. She has medical history significant for cirrho sis, heart failure with preserved ejection fraction (60%), nonischemic cardiomyo yolanda ([facility] 05/2020 no CAD), mechanical aortic valve implanted [...] and examined with Dr.Vidic Claudette Walton, HF, FISCAL SERVICES MANAGER [id number] Assessment: Acute on Chronic diastolic HFpEF, EF: 60% on last echo 05/22/2020. Repeat echo p ending today. Major Complications or Comorbidities (FPC): acute/ acute on chronic systolic and /or [...] vitals filed for this visit. Recommendations: GDMT BARREL WATERER Changes BB Lopressor 12.5 mg twice daily [...] Yes Strict I/O. Standing scale daily weight. Dump Operator consultation to discuss sodium restricted diet recommended. [...] 06/06/2020 Performed by Bao Hernández MD at [facility] COLONOSCOPY DIAGNOSTIC WITH SPECIMEN COLLECTION BY BRUSHING/ WASHING - FLEXI BLE N/A 06/06/2020 Performed by Boa Hernández MD at [facility] ANGIOGRAPHY CORONARY ARTERY WITH RIGHT AND LEFT HEART CATHETERIZATION N/A Performed by Higinio Clarke MD at [facility] POSSIBLE PERCUTANEOUS CORONARY STENT PLACEMENT WITH ANGIOPLASTY N/A Performed by Higinio Clarke MD at 2 [facility] Family History Problem Relation Age of Onset [...] 0633) Height: 157.5 cm (5' 2.01") (10/21 0956) BP: (85-115)/(48-84) Temp: [36.2 C (97.2 F)-37.1 [...] the treatment plan as outlined by the FISCAL SERVICES MANAGER The Complexity of medical decision making is [...] with my edits as outlined below. Staff division chief: DO Jalen Jaimes Christopher, MD - 10/20/2020 [...] with history of HFpEF, mechanical AVR on rfarin, pAfib, HTN, JANKI, CKD, hypothyroidism non-Hodgkin's [...] with history of HFpEF, mechanical AVR on rfarin, pAfib, HTN, JANKI, CKD, hypothyroidism non-Hodgkin's [...] m oderate ascites and body wall edema -BARREL WATERER Bumex 5 mg BID, Spironolactone 100 mg [...] remains stable overnight -CLD today, NPO at NE -No PO bowel prep. Will need tap water enema tomorrow morning prior to procedure -Maintain 2 large bore IVs -IV PPI BID -Octreotide bolus and gtt -Ceftriaxone for SBP prophylaxis -Hold diuretics -Hold warfarin and Lovenox Patient seen/discussed with Dr. Patricia Cool GI fellow Pager [phone] 10/20/2020 3:15 PM PMH: Medical History: Diagnosis [...] 06/06/2020 Performed by Bao Hernández MD at [facility] COLONOSCOPY DIAGNOSTIC WITH SPECIMEN COLLECTION BY BRUSHING/ WASHING - FLEXI BLE N/A 06/06/2020 Performed by Bao Hernández MD at [facility] ANGIOGRAPHY CORONARY ARTERY WITH RIGHT AND LEFT HEART CATHETERIZATION N/A Performed by Higinio Clarke MD at [facility] POSSIBLE PERCUTANEOUS CORONARY STENT PLACEMENT WITH ANGIOPLASTY N/A Performed by Higinio Clarke MD at [facility] SH: Social History Socioeconomic History Marital status: [...] Plan D/c home today Pt lives in [facility] with her SO of 6 years. Pt reports she was independ ent with most cares BARREL WATERER. She does not drive. Pt will have transport home provided by her SO Catarino. He will be coming from [facility]. Pt was on warfarin BARREL WATERER. She had her division chief Riley Hopson following inrs/coum marco dosing. Pt [...] Transportation Name, Phone and Availability #1: pts TABITHA Catarino Khoi to provide transport. he will be coming from [place]. Does the patient use Medicaid Transportation?: No Next Level of Care (Acute Psych discharges only) Discharge Disposition Selected Continued Care - Admitted Since 10/20/2020 No services have been selected for the patient. Gavi Nobles Integrated Nurse Cabin Cleaner Bsn R[facility] [phone] Pager [phone] * Care Coordination-Inpatient - Caitlin Esparza RN [...] ulcers). Hepatology Follow-ups: No changes made to BARREL WATERER schedule Hepatology appt. Appointment Date/Time: 12/19/2020 @ 12pm Appointment Provider: Dr Allison Marti. Orthopaedic Technologist Follow up: Labs Labs: CBC ordered and faxed to patient's preferred lab [facility] is currently closed, but lab services are still available. Order fax ed to number provided by retail representative when called to verify lab services [...] occurs [facility]. She verbalized understanding. Encouraged patient/family to call the clinic with any hepatology needs after discharge. [phone]. ~Will be available if patient needs anything from a hepatology standpoint while in the hospital Friday through Friday 7am-5pm ~Discharge information to be sent to the hepatology provider & team that will follow with patient in the outpatient clinic. Rachael Esparza RN-BSN Inpatient Hepatology Nurse Coordinator Pgr: [phone] [facility] [phone] * Care Plan - Shalonda Santizo RN [...] Outcome: Goal Ongoing * Laurita Gusman - Elizabeth Stafford RN - 10/26/2020 6:38 [...] Elizabeth Stafford RN Outcome: Goal Ongoing 10/26/2020 06 by Elizabeth Stafford RN Outcome: Goal Ongoing * Care Plan - Elizabeth Stafford RN - 10/26/2020 6:37 AM CDT Problem: [...] Outcome: Goal Ongoing * Care Plan - Lilly Walton RN - 10/24/2020 7:21 [...] Outcome: Goal Ongoing * Care Plan - Lilly Walton RN - 10/23/2020 6:34 PM CDT Problem: [...] any assist is needed. Pt lives in [facility] with her SO of 6 years. Pt reports she was independ ent with most cares BARREL WATERER. She does not drive. Pt will have transport home provided by her SO Catarino. He will be coming from [facility]. Pt has used HH and home infusion in the past, but could not remember the name of the companies. Pt was on warfarin BARREL WATERER. She had her division chief Riley Hopson following inrs/coum marco dosing. Pt reports that sometimes her HF team would follow it and adjust he r coumadin. Plan: holding warfarin today. Monitoring pt when back on warfarin and adjust as needed pending INRs. Pending d/c . Will follow. Patient Address/Phone [address] [facility] [phone] (home) Emergency Contact Extended Emergency Contact Information Primary Emergency Contact: Catarino Westfall Mobile Relation: Significant Other Secondary Emergency Contact: ReyesBlair Mobile Relation: Son Healthcare Directive Healthcare Directive: [...] provide transport. he will be coming from [place]. Does the patient use Medicaid Transportation?: No [...] Source of Income Source Of Income: Other long-term income Financial Assistance Needed? no reported concerns regarding medication or medical coverage Psychosocial Needs Mental Health Mental Health History: No Substance Use History Substance Use History Screen: No Other na Current/Previous Services PCP Garfield Gray, , Pharmacy [address] [address] Durable Medical Equipment Durable Medical Equipment at [...] pt had cardiac rehab post CABG at [facility] outpt. OT: No RETAIL MERCHANDISING SPECIALIST: No Group Home Facility/Snf SNF: No NH: No Inpatient Rehab IPR: No [facility] LTACH: No Acute Hospital Stay Acute Hospital Stay: In the past Was patient's stay within the last 30 days?: No Gavi Nobles Integrated Nurse Cabin Cleaner Bsn [facility] [phone] Pager [phone] * Care Plan - Maggi Salamanca RN [...] Zaria Paulson Attending: Duyen Arroyo DO Service: [facility] L- [id number] Admission Date: 10/20/2020 LOS: 1 day A Code/Rapid Response Timeline Event Report has been created for this patient on 10/21/20 at 1224 CLINICAL ADMINISTRATOR called due to concerns from a HF [...] Zaria Paulson Attending: Vijaya Millard MD Service: [place] [phone] Admission Date: 10/20/2020 LOS: 0 days A [...] - 10/20/2020 4:38 PM CDT Assigned to [facility] as moving to HC 7. Vijaya Millard [...] Patient-Stat Aut hor Goal Type Problems ed? [facility] On track (10/23/2020 Yes Sheldon, 1:06 [...] CDT) APTT 34.5 24.0 - 36.5 SEC [facility] Specimen Performing Organization Address [facility] Code P shane Number [facility] MAIN LAB [address] [place] [address] * PROTIME INR (PT) (10/26/2020 6:16 AM CDT) INR 1.4 (H) 0.8 - 1.2 [facility] Specimen Blood Performing Organization Address [facility] P shane Number [facility] MAIN [facility] [address] [place] [address] * MAGNESIUM (10/26/2020 6:16 AM CDT) Magnesium 1.9 1.6 - 2.6 mg/dL MAIN LAB Specimen Blood Performing Organization Address [facility] P shane Number [facility] MA[facility] [address] [place] [address] * CBC (10/26/2020 6:16 AM CDT) White Blood 7.0 4.5 - 11.0 K/UL [facility] Cells RBC 2.50 (L) 4.0 - 5.0 M/UL [facility] Hemoglobin 8.2 (L) 12.0 - 15.0 GM/DL [facility] Hematocrit 23.7 (L) 36 - 45 % [facility] MCV 94.8 80 - 100 FL [facility] MAIN [facility] MCH 32.7 26 - 34 PG MAIN LAB MCHC 34.5 32.0 - 36.0 G/DL MAIN LAB RDW 17.2 (H) 11 - 15 % [facility] MA[facility] Platelet Count 167 150 - 400 K/UL [facility] MAIN [facility] MPV 7.1 7 - 11 FL MAIN LAB Specimen Blood Performing Organization Address [facility] P shane Number [facility] MAIN [facility] [address] [place] [address] * COMPREHENSIVE METABOLIC PANEL (10/26/2020 6:16 AM [...] (L) >60 mL/min [facility] Comment: [place] The eGFR is not validated f or use in drug dosing adjustments. Continue to use estimated creatinine clearance per dosing reference text. Please contact the Clinical Pharmacist for questions. eGFR 59 (L) >60 mL/min [facility] [place]ese Comment: The eGFR is not validated for use in drug dosing adjustments. Continue to use estimated creatinine clearance per dosing reference text. Please contact the Clinical Pharmacist for questions. Specimen Blood Performing Organization Address City/State/ZIP Code P shane Number MAIN LAB [address] [place] [id number] * PTT (APTT) (10/26/2020 12:27 AM CDT) APTT 75.3 (H) 24.0 - 36.5 SEC [facility] Specimen Blood Performing Organization Address City/State/ZIP Code P shane Number [facility] MAIN [facility] [address] [place] [address] * PTT (APTT) (10/25/2020 6:00 PM CDT) APTT 30.1 24.0 - 36.5 SEC [facility] Specimen Blood Performing Organization Address City/[facility]/ZIP Code P shane Number [facility] MAIN [facility] [address] [place] [address] * MAGNESIUM (10/25/2020 6:05 AM CDT) Magnesium 1.9 1.6 - 2.6 mg/dL [facility] Specimen Performing Organization Address [facility] Code P shane Number [facility] MAIN [facility] [address] [place] [address] * CBC (10/25/2020 6:05 AM CDT) White Blood 5.0 4.5 - 11.0 K/UL [facility] MAIN [facility] Cells RBC 2.43 (L) 4.0 - 5.0 M/UL [facility]IN [facility] Hemoglobin 7.9 (L) 12.0 - 15.0 [...] MAIN LAB Specimen Blood Performing Organization Address [facility] Code P shane Number [facility] MAIN [facility] [address] [place] [address] * ALPHA FETO PROTEIN (AFP) (10/25/2020 6:05 AM CDT) Pathologist [facility] Alpha Feto 1.4 0.0 - 15.0 NG/ML [facility]IN [facility] Protein Specimen Blood Performing Organization Address City/[facility] P shane Number [facility] MAIN [facility] [address] [place] [address] * COMPREHENSIVE METABOLIC PANEL (10/25/2020 6:05 AM CDT) Pathologist [facility] Sodium 134 (L) 137 - 147 MMOL/L [...] >60 >60 mL/min [facility] Comment: [place] The eGFR is not validated f or use in drug dosing adjustments. Continue to use estimated creatinine clearance per dosing reference text. Please contact the Clinical Pharmacist for questions. eGFR >60 >60 mL/min [facility] [place] Comment: The eGFR is not validated for use in drug dosing adjustments. Continue to use estimated creatinine clearance per dosing reference text. Please contact the Clinical Pharmacist for questions. Specimen Blood Performing Organization Address City/State/ZIP Code P shane Number [facility] MAIN [facility] [address] [place] [address] * PROTIME INR (PT) (10/25/2020 6:05 AM CDT) INR 1.4 (H) 0.8 - 1.2 [facility] Specimen Blood Performing Organization Address City/[facility]/ZIP [facility] P shane Number [facility] MAIN [facility] [address] [place] [address] * IRON + BINDING CAPACITY + %SAT+ FERRITIN (10/24/2020 5:47 AM CDT) Iron 32 (L) 50 - 160 MCG/DL [facility] Iron 262 (L) 270 - 380 MCG/DL [facility] Binding-TIBC % Saturation 12 (L) 28 - 42 % [facility] Ferritin 130 10 - 200 NG/ML [facility] Specimen Performing Organization Address City/[facility]/ZIP [facility] P shane Number [facility] MAIN [facility] [address] [place] [address] * CBC (10/24/2020 5:47 AM CDT) White [...] P shane Number [facility] MAIN [facility] [address] [place] [address] * COMPREHENSIVE METABOLIC PANEL (10/24/2020 5:47 AM [...] (L) >60 mL/min [facility] Comment: [place] The eGFR is not validated f or use in drug dosing adjustments. Continue to use estimated creatinine clearance per dosing reference text. Please contact the Clinical Pharmacist for questions. eGFR 44 (L) >60 mL/min [facility] [place] Comment: The eGFR is not validated for use in drug dosing adjustments. Continue to use estimated creatinine clearance per dosing reference text. Please contact the Clinical Pharmacist for questions. Specimen Blood Performing Organization Address City/[facility]/ZIP Code P shane Number [facility] MAIN [facility] [address] [place] [address] * PROTIME INR (PT) (10/24/2020 5:47 AM CDT) INR 1.8 (H) 0.8 - 1.2 [facility] MA[facility] Specimen Blood Performing Organization Address [facility] P shane Number [facility] MAIN [facility] [address] [place] [address] * COMPREHENSIVE METABOLIC PANEL (10/23/2020 12:35 PM CDT) Pathologist [facility] Sodium 131 (L) 137 - 147 MMOL/L [...] (L) >60 mL/min [facility] Comment: [place] The eGFR is not validated f or use in drug dosing adjustments. Continue to use estimated creatinine clearance per dosing reference text. Please contact the Clinical Pharmacist for questions. eGFR 35 (L) >60 mL/min [facility] [place] Comment: The eGFR is not validated for use in drug dosing adjustments. Continue to use estimated creatinine clearance per dosing reference text. Please contact the Clinical Pharmacist for questions. Specimen Blood Performing Organization Address [facility] P shane Number [facility] [address] [place] [phone] * CBC (10/23/2020 12:35 PM CDT) White [...] MAIN LAB Specimen Blood Performing Organization Address City/[facility]/ZIP Code P shane Number MAIN LAB [address] [place] [phone] * PROTIME INR (PT) (10/23/2020 8:37 AM CDT) INR 2.8 (H) 0.8 - 1.2 MAIN LAB Specimen Blood Performing Organization Address City/[facility]/ZIP Code P shane Number MAIN LAB [address] [place] [phone] * HEMOGLOBIN & HEMATOCRIT (10/22/2020 11:17 PM CDT) Hemoglobin 7.9 (L) 12.0 - 15.0 GM/DL MAIN LAB Hematocrit 22.8 (L) 36 - 45 % MAIN LAB Specimen Blood Performing Organization Address City/[facility]/ZIP Code P shane Number MAIN LAB [address] [place] [phone] * TRANSFUSE RBC'S (10/22/2020 9:53 PM CDT) Specimen Blood * TRANSFUSE RBC'S (10/22/2020 9:53 PM CDT) Specimen Blood * LACTIC ACID(LACTATE) (10/22/2020 8:59 PM CDT) Lactic Acid 1.9 0.5 - 2.0 MMOL/L MAIN LAB Specimen Blood Performing Organization Address City/[facility]/ZIP Code P shane Number [facility] [address] [place] [address] * CBC (10/22/2020 8:59 PM CDT) White [...] MAIN LAB Specimen Blood Performing Organization Address City/[facility]/ZIP Code P shane Number [facility] MA[facility] [address] [place] [address] * CBC (10/22/2020 12:34 PM CDT) White [...] P shane Number [facility] MAIN [facility] [address] [place] [address] * MAGNESIUM (10/22/2020 3:12 AM CDT) Magnesium 2.0 1.6 - 2.6 mg/dL [facility] Specimen Performing Organization Address City/[facility]/ZIP Code P shane Number [facility] MA[facility] [address] [place] [address] * CBC (10/22/2020 3:12 AM CDT) White [...] P shane Number [facility] MAIN [facility] [address] [place] [address] * PROTIME INR (PT) (10/22/2020 3:12 AM CDT) INR 3.1 (H) 0.8 - 1.2 [facility] Specimen Blood Performing Organization Address City/[facility] Code P shane Number [facility] MAIN [facility] [address] [place] [address] * COMPREHENSIVE METABOLIC PANEL (10/22/2020 3:12 AM [...] (L) >60 mL/min [facility] Comment: [place] The eGFR is not validated f or use in drug dosing adjustments. Continue to use estimated creatinine clearance per dosing reference text. Please contact the Clinical Pharmacist for questions. eGFR 33 (L) >60 mL/min [facility] [place] Comment: The eGFR is not validated for use in drug dosing adjustments. Continue to use estimated creatinine clearance per dosing reference text. Please contact the Clinical Pharmacist for questions. Specimen Blood Performing Organization Address City/State/ZIP Code P shane Number [facility] MAIN LAB [address] [address] * EGD REPORT (10/21/2020 9:59 PM CDT) Provation Patient Name: Khurram SPARKS OTHER Report Procedure Date: 10/21/2020 9:59 RESULT S PM CSN: [id number] Date of : 1960 Gender: Female Attending Physician: Cosmo Gomez MD Procedure: Upper GI endoscopy Indications: Hematochezia Providers: Cosmo Gomez MD (Doctor), Jesus Senior (Fellow), Sarah Sapp (Nurse), Omid Brooke Flake Cutter Operator (Flake Cutter Operator) Referring Physician: Cosmo Gomez MD Medications: Monitored [...] 6 seconds Procedure Code(s): --- Professional --- 33772, Esophagogastroduodenoscopy, flexible, transoral; diagnostic, including collection of specimen(s) by brushing or washing, when performed (separate procedure) Diagnosis Code(s): --- Professional --- K22.8, Other specified diseases of esophagus K92.1, Melena (includes Hematochezia) CPT copyright 2020 [employer]. All rights reserved. The codes documented in this report are preliminary and upon information coder review may be revised to meet current [...] Date: 10/21/2020 9:34 RESULT S PM CSN: [id number] Date of : 1960 Gender: Female Attending Physician: Cosmo Gomez MD Procedure: Flexible Sigmoidoscopy Indications: Hematochezia Providers: Cosmo Gomez MD (Doctor), Sarah Sapp (Nurse), Omid Brooke, Flake Cutter Operator (Flake Cutter Operator), Jesus Senior (Fellow) Referring Physician: Cosmo Gomez [...] 40 seconds Procedure Code(s): --- Professional --- 59575, Sigmoidoscopy, flexible; with control of bleeding, any method Diagnosis Code(s): --- Professional --- K55.21, Angiodysplasia of colon with hemorrhage K92.1, Melena (includes Hematochezia) CPT copyright 2020 [employer]. All rights reserved. The codes documented in this report are preliminary and upon information coder review may be revised to meet current [...] P shane Number [facility] MAIN [facility] [address] [place] [address] * CBC (10/21/2020 6:46 PM CDT) Pathologist [facility] White Blood 10.1 4.5 - 11.0 K/UL MAIN LAB Cells RBC 2.36 (L) 4.0 - 5.0 M/UL MAIN LAB Hemoglobin 7.2 (L) 12.0 - 15.0 GM/DL MAIN LAB Hematocrit 21.3 (L) 36 - 45 % MAIN LAB MCV 90.4 80 - 100 FL MAIN LAB MCH 30.7 26 - 34 PG MAIN LAB MCHC 33.9 32.0 - 36.0 G/DL MAIN LAB RDW 17.3 (H) 11 - 15 % MAIN LAB Platelet Count 156 150 - 400 K/UL MAIN LAB MPV 7.2 7 - 11 FL MAIN LAB Specimen Blood Performing Organization Address [facility]/ZIP Code P shane Number MAIN LAB [address] [place] [phone] * TRANSFUSE RBC'S (10/21/2020 1:35 PM CDT) Specimen Blood * TRANSFUSE RBC'S (10/21/2020 1:35 PM CDT) Specimen Blood * PREPARE PLASMA (FFP) (10/21/2020 12:38 PM CDT) Pathologist [facility] Units Ordered 1 [facility] Unit Number [id number] [facility] Blood Component THAWED PLASMA [facility] Type Unit Division 00 [facility] Status OF Unit TRANSFUSED [facility] ISSUE DATE TIME [id number] [facility] PRODUCT CODE F0542I15 [facility]IN [facility] BLOOD TYPE O POS [facility] CODING STATUS 5100 [facility] MAIN LAB BLOOD [id number] [facility] EXPIRATION DATE Transfusion OK TO TRANSFUSE [facility] Status Specimen Other (Specify) Performing Organization Address City/[facility]/ZIP Code P shane Number MAIN LAB [address] [place] [phone] * 2D + DOPPLER ECHO (10/21/2020 9:56 AM CDT) Pathologist [facility] LVOT diameter 1.94 cm OTHER OUTSIDE LAB [...] = LAB AV index 0.50 OTHER OUTSIDE ([place]) LAB LVOT area 2.96 cm2 OTHER OUTSIDE [...] 18.07 OTHER OUTSIDE ratio LAB Cardiology Siemens [id number] OTHER OUTSIDE Ultrasound LAB Machine Specimen Narrative [...] significant changes have occurred. Performing Organization Address [facility] P shane Number OTHER OUTSIDE LAB * TROPONIN-I (10/21/2020 9:50 AM CDT) Pathologist [facility] Troponin-I 0.04 0.0 - 0.05 NG/ML MAIN LAB Specimen Blood Performing Organization Address City/[facility] P shane Number [facility] [address] [place] [address] * TROPONIN-I (10/21/2020 5:15 AM CDT) [facility] Troponin-I 0.04 0.0 - 0.05 NG/ML MAIN LAB Specimen Performing Organization Address [facility] P shane Number [facility] [address] [place] [address] * CBC (10/21/2020 5:15 AM CDT) Pathologist [facility] White Blood 10.3 4.5 - 11.0 K/UL [...] P shane Number [facility] [address] [place] [address] * PROTIME INR (PT) (10/21/2020 5:15 AM CDT) Pathologist [facility] INR 3.7 (H) 0.8 - 1.2 [facility] MA[facility] Specimen Blood Performing Organization Address City/[facility] Code P shane Number [facility] [address] [place] [address] * COMPREHENSIVE METABOLIC PANEL (10/21/2020 5:15 AM CDT) Pathologist [facility] Sodium 135 (L) 137 - 147 MMOL/L [...] (L) >60 mL/min [facility] Comment: Faroese The eGFR is not validated f or use in drug dosing adjustments. Continue to use estimated creatinine clearance per dosing reference text. Please contact the Clinical Pharmacist for questions. eGFR 37 (L) >60 mL/min [facility] Faroese Comment: The eGFR is not validated for use in drug dosing adjustments. Continue to use estimated creatinine clearance per dosing reference text. Please contact the Clinical Pharmacist for questions. Specimen Blood Performing Organization Address City/State/ZIP Code P shane Number [facility] [address] [place] [address] * LACTIC ACID(LACTATE) (10/21/2020 5:10 AM CDT) Pathologist [facility] Lactic Acid 1.9 0.5 - 2.0 MMOL/L [facility] Specimen Blood Performing Organization Address City/[facility] P shane Number [facility] [address] [place] [address] * TRANSFUSE RBC'S (10/20/2020 10:16 PM CDT) [...] MAIN LAB Specimen Blood Performing Organization Address City/[facility]/ZIP Code P shane Number [facility] [address] [place] [address] * PHOSPHORUS (10/20/2020 5:12 PM CDT) Phosphorus 3.3 2.0 - 4.5 MG/DL [facility] Specimen Blood Performing Organization Address City/[facility]/ZIP Code P shane Number [facility] [address] [place] [address] * MAGNESIUM (10/20/2020 5:12 PM CDT) Magnesium 1.8 1.6 - 2.6 mg/dL [facility] Specimen Blood Performing Organization Address City/[facility] Code P shane Number [facility] [address] [place] [address] * TROPONIN-I (10/20/2020 5:12 PM CDT) Troponin-I 0.04 0.0 - 0.05 NG/ML [facility] Specimen Blood Performing Organization Address City/[facility] Code P shane Number [facility] [address] [place] [address] * COMPREHENSIVE METABOLIC PANEL (10/20/2020 5:12 PM CDT) Sodium 134 (L) 137 - 147 [...] (L) >60 mL/min [facility] Comment: Faroese The eGFR is not validated f or use in drug dosing adjustments. Continue to use estimated creatinine clearance per dosing reference text. Please contact the Clinical Pharmacist for questions. eGFR 49 (L) >60 mL/min [facility] [place] Comment: The eGFR is not validated for use in drug dosing adjustments. Continue to use estimated creatinine clearance per dosing reference text. Please contact the Clinical Pharmacist for questions. Specimen Blood Performing Organization Address City/[facility]/ZIP Code P shane Number [facility] [address] [place] [address] * PTT (APTT) (10/20/2020 5:12 PM CDT) APTT 34.9 24.0 - 36.5 SEC [facility] Specimen Blood Performing Organization Address [facility] P shane Number [facility] [address] [place] [address] * PROTIME INR (PT) (10/20/2020 5:12 PM CDT) INR 3.1 (H) 0.8 - 1.2 MAIN LAB Specimen Blood Performing Organization Address [facility] P shane Number [facility] [address] [place] [address] * CBC (10/20/2020 5:12 PM CDT) White Blood 11.0 4.5 - 11.0 K/UL [...] MAIN LAB Specimen Blood Performing Organization Address [facility] P shane Number [facility] [address] [place] [address] * POC GLUCOSE (10/20/2020 5:11 PM CDT) Glucose, POC 152 (H) 70 - 100 MG/DL [facility] Specimen Performing Organization Address [facility]/ZIP Code P shane Number [facility] [address] [place] [address] * TRANSFUSE RBC'S (10/20/2020 4:37 PM CDT) Specimen Blood * BASIC METABOLIC PANEL (10/20/2020 3:29 PM CDT) Sodium 132 (L) 137 - 147 MMOL/L [facility] Potassium 3.6 3.5 - 5.1 MMOL/L [facility] Chloride 99 98 - 110 MMOL/L [facility] CO2 24 21 - 30 MMOL/L [facility] Anion Gap 9 3 - 12 [facility] Glucose 118 (H) 70 - 100 MG/DL [facility] Blood Urea 40 (H) 7 - 25 MG/DL [facility] Nitrogen Creatinine 1.28 (H) 0.4 - 1.00 MG/DL [facility] Calcium 7.7 (L) 8.5 - 10.6 MG/DL [facility] eGFR Non 43 (L) >60 mL/min [facility] Comment: Faroese The eGFR is not validated f or use in drug dosing adjustments. Continue to use estimated creatinine clearance per dosing reference text. Please contact the Clinical Pharmacist for questions. eGFR 52 (L) >60 mL/min [facility] [place] Comment: The eGFR is not validated for use in drug dosing adjustments. Continue to use estimated creatinine clearance per dosing reference text. Please contact the Clinical Pharmacist for questions. Specimen Blood Performing Organization Address City/State/ZIP Code P shane Number MAIN LAB [address] [place] [address] * COVID-19 (SARS-COV-2) PCR (10/20/2020 12:53 PM CDT) Pathologist [facility] COVID-19 FLOCKED SWAB [facility] (SARS-CoV-2) NASOPHARYNGEAL PCR Source COVID-19 NOT DETECTED DN-NOT DETECTED [facility] (SARS-CoV-2) Comment: PCR This assay is designed [...] performance characteristics have been verified by the [facility] clinical laboratory. Fact sheet for providers: https://www.fda.gov/media/8536 13/download Fact sheet for patients: https://www.fda.gov/media/1478 12/download Specimen Flocked Swab - Nasopharyngeal Performing Organization Address City/State/ZIP Code P shane Number [facility] [address] [place] [address] * BLOOD TYPE CONFIRMATION - ORDER ONLY IF REQUESTED BY LAB (10/20/2020 11:54 AM CDT) ABO/RH(D) O POS [facility] Specimen Bowel Contents Performing Organization Address City/[facility]/ZIP Code P shane Number [facility] [address] [place] [address] * TYPE & CROSSMATCH (10/20/2020 11:33 AM CDT) Units Ordered 7 [facility] Crossmatch 10/23/2020,2359 [facility] Expires Record Check 2ND TYPE REQUIRED [facility] ABO/RH(D) O POS [facility] Antibody Screen NEG [facility] Electronic YES [facility] Crossmatch Unit Number [id number] [facility] Blood Component RBC,ADSOL,LEUKO REDUCED,1ST [facility] AB Type CONT. Unit Division 00 [facility] Status OF Unit TRANSFUSED [facility] ISSUE DATE TIME [facility] PRODUCT CODE [id number] [facility] BLOOD TYPE O POS [facility] CODING STATUS 5100 [facility] BLOOD [id number] [facility] EXPIRATION DATE Transfusion OK TO TRANSFUSE [facility] Status Crossmatch COMPATIBLE,ELECTRONIC [facility] Result Unit Number [id number] [facility] Blood Component RBC,ADSOL,LEUKO REDUCED [facility] Type Unit Division 00 [facility] Status OF Unit TRANSFUSED [facility] ISSUE DATE TIME [id number] [facility] PRODUCT CODE [id number] [facility] BLOOD TYPE O POS [facility] CODING STATUS 5100 [facility] BLOOD [id number] [facility] EXPIRATION DATE Transfusion OK TO TRANSFUSE [facility] Status Crossmatch COMPATIBLE,ELECTRONIC [facility] Result Unit Number [id number] [facility] Blood Component RBC,ADSOL,LEUKO REDUCED [facility] Type Unit Division 00 [facility] Status OF Unit TRANSFUSED [facility] ISSUE DATE TIME [facility] PRODUCT CODE [id number] [facility] BLOOD TYPE O POS [facility] CODING STATUS 5100 [facility] BLOOD [id number] [facility] EXPIRATION DATE Transfusion OK TO TRANSFUSE [facility] Status Crossmatch COMPATIBLE,ELECTRONIC [facility] Result Unit Number [id number] [facility] Blood Component RBC,ADSOL,LEUKO REDUCED,2ND [facility] AB Type CONT. Unit Division 00 [facility] Status OF Unit TRANSFUSED [facility] ISSUE DATE TIME [facility] PRODUCT CODE [id number] [facility] BLOOD TYPE O POS [facility] CODING STATUS 5100 [facility] BLOOD [id number] [facility] EXPIRATION DATE Transfusion OK TO TRANSFUSE [facility] Status Crossmatch COMPATIBLE,ELECTRONIC [facility] Result Unit Number [id number] [facility] Blood Component RBC,ADSOL,LEUKO REDUCED [facility] Type Unit Division 00 [facility] Status OF Unit TRANSFUSED [facility] ISSUE DATE TIME [id number] [facility] PRODUCT CODE [id number] [facility] BLOOD TYPE O POS [facility] CODING STATUS 5100 [facility] BLOOD [id number] [facility] EXPIRATION DATE Transfusion OK TO TRANSFUSE [facility] Status Crossmatch COMPATIBLE,ELECTRONIC [facility] Result Unit Number [id number] [facility] Blood Component RBC,ADSOL,LEUKO REDUCED [facility] Type Unit Division 00 [facility] Status OF Unit TRANSFUSED [facility] ISSUE DATE TIME [facility] PRODUCT CODE [id number] [facility] BLOOD TYPE O POS [facility] CODING STATUS 5100 [facility] BLOOD [id number] [facility] EXPIRATION DATE Transfusion OK TO TRANSFUSE [facility] Status Crossmatch COMPATIBLE,ELECTRONIC [facility] Result Specimen Lung Performing Organization Address City/State/ZIP Code P shane Number [facility] [address] [place] [address] * POC PT/INR (10/20/2020 9:13 AM CDT) INR POC 2.8 (H) 0.8 - 1.2 [facility] Specimen Performing Organization Address City/[facility] P shane Number [facility] [address] [place] [address] * MAGNESIUM (10/20/2020 9:07 AM CDT) Magnesium 1.8 1.6 - 2.6 mg/dL [facility] Specimen Performing Organization Address [facility] P shane Number [facility] [address] [place] [address] * PROTIME INR (PT) (10/20/2020 9:07 AM CDT) INR 3.2 (H) 0.8 - 1.2 [facility] Specimen Performing Organization Address [facility] P shane Number [facility] [address] [place] [address] * BLUE TOP TUBE (10/20/2020 9:07 AM CDT) Specimen Performing Organization Address [facility] P shane Number [facility] RESULTS * BASIC METABOLIC PANEL (10/20/2020 9:07 AM CDT) Sodium 133 (L) 137 - 147 MMOL/L [...] (L) >60 mL/min [facility] Comment: Faroese The eGFR is not validated f or use in drug dosing adjustments. Continue to use estimated creatinine clearance per dosing reference text. Please contact the Clinical Pharmacist for questions. eGFR 50 (L) >60 mL/min [facility] [place] Comment: The eGFR is not validated for use in drug dosing adjustments. Continue to use estimated creatinine clearance per dosing reference text. Please contact the Clinical Pharmacist for questions. Specimen Blood Performing Organization Address City/[facility] P shane Number [facility] [address] [place] [address] * CBC (10/20/2020 9:07 AM CDT) White Blood 7.8 4.5 - 11.0 K/UL [facility] Cells RBC 1.96 (L) 4.0 - 5.0 M/UL MAIN LAB Hemoglobin 5.9 (LL) 12.0 - 15.0 GM/DL [facility] Comment: CRITICAL VALUE CALLED TO AND READ BACK BY/TIME/TECH CHRYSTAL DENNISON at 10/20/2020 09:46:41 by 1949 Hematocrit 17.0 (L) 36 - 45 % [facility] MCV 86.9 80 - 100 FL [facility] MCH 30.1 26 - 34 PG [facility] MCHC 34.7 32.0 - 36.0 G/DL [facility] RDW 21.9 (H) 11 - 15 % [facility] Platelet Count 200 150 - 400 K/UL [facility] MPV 7.2 7 - 11 FL [facility] Specimen Blood Performing Organization Address City/State/ZIP Code P shane Number [facility] [address] [place] [address] * TELEMETRY STRIPS-SCAN (10/20/2020 12:00 AM CDT) [...] documented in this encounter Visit Diagnoses Diagnosis Chronic heart failure with preserved ej ection fraction (HCC) Hematochezia Blood in stool LEONORA (acute kidney injury) (HCC) Acute kidney failure, unspecified Anemia, unspecified type Aortic valve prosthesis present Heart valve replaced by other means Chronic anticoagulation Long-term (current) use of anticoagulan ts Paroxysmal atrial fibrillation (HCC) Atrial fibrillation Severe tricuspid regurgitation Diseases of tricuspid valve Stage 3b chronic kidney disease (HCC) Cirrhosis of liver without ascites, uns pecified hepatic cirrhosis type (HCC) Iron deficiency anemia due to chronic b lood loss Iron deficiency anemia secondary to blo od loss (chronic) Acute on chronic diastolic (congestive) heart failure (HCC) Gastrointestinal hemorrhage, unspecifie d gastrointestinal hemorrhage type Atrial tachycardia (HCC) Other specified cardiac dysrhythmias Iron deficiency anemia Iron deficiency anemia, unspecified History of endocarditis Personal history of other diseases of c irculatory system Hypoalbuminemia Other disorders of plasma protein metab olism documented in this encounter Admitting Diagnoses Diagnosis [...] at 0846, Until Toya 10/26/20 at 1248, Pain non-opioid: ma y be [...] at 0846, Until Fri10/26/20 at 1248, Indigestion/Heartburn 10/22/2020 2:12 AM CDT 0.5 mg/min 17 mL/hr amiodarone (CORDARONE) 360 mg in Given - New dextrose, iso-osm 200 mL infusion Bag 200 mL, 0.5-1 mg/min (16.6667-33.3333 mL/hr, rounded to 17-33 mL/hr), at 17-3 3 mL/hr, Intravenous, TITRATE DIRECTED , Starting on Fri10/20/20 at 1745, Until Fri10/22/20 at 1030, Initiat e infusion at 1 mg/min for the first 6 hours, followed by 0.5 mg/min maintenance rate. SPECIAL TUBING REQUIRED Std conc = 1.8 mg/mL 0.5 mg/min 17 mL/hr Given - New Bag 10/21/2020 12:37 PM CDT 0.5 mg/min 17 mL/hr Given - New Bag 10/21/2020 1:17 AM CDT 1 mg/min 33 mL/hr Given - New Bag 10/20/2020 6:57 PM CDT 10/25/2020 9:28 AM CDT 2 mg bumetanide (BUMEX) injection 2 mg Given 2 mg, Intravenous, TWICE DAILY, First dose on Fri10/22/20 at 1145, Until Discontinued, PROTECT FROM LIGHT 2 mg Given 10/24/2020 5:58 PM CDT 2 mg Given 10/24/2020 8:38 AM CDT 2 mg Given 10/23/2020 5:17 PM CDT 2 mg Given 10/23/2020 9:46 AM CDT 2 mg Given 10/22/2020 5:01 PM CDT 2 mg Given 10/22/2020 11:13 AM CDT 10/26/2020 8:11 AM CDT 3 mg bumetanide [...] 1 g Given 10/24/2020 5:57 PM CDT 10/23/2020 5:16 PM CDT 2 g cefTRIAXone (ROCEPHIN) IVP 2 g Given 2 g, Intravenous, EVERY 24 HOURS, First dose on Fri10/20/20 at 1745, Until Discontinued, INSTR: IV PUSH -- RECONSTITUTE EACH 1 GM WITH 10 MLS of 0.9% NACL (NS) or STERILE WATER (SW) or DEXTROSE 5% (D5W) 2 g Given 10/22/2020 5:01 PM CDT 2 g Given 10/21/2020 4:59 PM CDT 2 g Given 10/20/2020 6:48 PM CDT diphenhydrAMINE (BENADRYL) injection 25 mg 25 mg, Intravenous, EVERY 4 HOURS PRN, Starting on Fri10/24/20 at 1134, Until Fri10/26/20 at 1248, Other..., IV iron infusion-related urticaria, If symptoms are rapidly progressing or continue after diphenhydramine, give epinephrine . docusate (COLACE) capsule 100 mg 100 mg, Oral, DAILY PRN, Starting on Fri10/20/20 at 0846, Until Fri10/26/20 a t 1248, Constipation PO, Hold for [...] NOTE: This is a HIGH ALERT Medication. 10/20/2020 5:26 PM CDT 40 mg furosemide (LASIX) injection 40 mg Given 40 mg, 4 mL, Intravenous, ONCE, 1 dose, On Fri10/20/20 at 1815, PROTECT FROM LIGHT 10/26/2020 7:13 AM CDT 1,101.5 Units/hr 13.8 [...] INSTRUCTIONS, Starting on Fri10/25/20 at 1740, Until Toya 10/26/20 at 1248, ADJUSTMENT BOLUS (from vial) for hepari n drip -- Weight-Based Heparin Algorithm - Follow heparin infusion scale - WITH ADJUSTMENT BOLUS (see heparin infusion order administration instructions) for subsequent bolus and rate changes. - Administer adjustment bolus from vial. NOTE: This is a HIGH ALERT Medication. 10/25/2020 6:45 PM CDT 4,210 Units heparin (porcine) injection 4,210 Units Given 4,210 Units (rounded from 4,207 Units = 70 Units/kg 60.1 kg), Intravenous, ONCE, 1 dose, On Fri10/25/20 at 1815, INITIAL BOLUS (from vial) for heparin drip -- Weight-Based Heparin Algorithm (fluid restricted patients) - Initial IV bolus: 70 units/kg - Not to exceed 7500 units - Administer initial bolus from vial. NOTE: This is a HIGH ALERT Medication. 10/26/2020 8:12 AM CDT 300 mg 46 mL/hr iron sucrose (VENOFER) 300 mg in sodium Given - New chloride 0.9% (NS) IVPB Bag 300 mg, Intravenous, 115 mL, Administer over 150 Minutes, DAILY, 3 doses, First dose on Fri10/24/20 at 1245, Last dose o n Toya 10/26/20 at 0900, -STOP infusion immediately, and notify [...] increases in respiratory rate, tremor and convulsions. 300 mg 46 mL/hr Given - New Bag 10/25/2020 9:29 AM CDT 300 mg 46 mL/hr Given - New Bag 10/24/2020 1:32 PM CDT 10/26/2020 6:25 AM CDT 75 mcg levothyroxine [...] 3 mg Given 10/22/2020 9:03 PM CDT 10/20/2020 5:25 PM CDT 5 mg metoprolol (LOPRESSOR) injection 5 mg Given 5 mg, Intravenous, ONCE, 1 dose, On Fri10/20/20 at 1815, PROTECT FROM LIGHT 10/23/2020 9:46 AM CDT 12.5 mg metoprolol tartrate tablet 12.5 mg Given 12.5 mg, Oral, TWICE DAILY, First dose on Fri10/22/20 at 0945, Until Discontinued, Hold for heart rate < 60 bpm or systolic BP < 95 12.5 mg Given 10/22/2020 9:31 AM CDT nitroglycerin (NITROSTAT) tablet 0.4 mg 0.4 mg, Sublingual, EVERY 5 MIN PRN, Starting on Fri10/20/20 at 0846, Until Fri10/26/20 at 1248, Chest Pain, Not to exceed 3 doses per incident of chest pain. Notify physician if chest pain persists after 3 doses. 10/21/2020 10:19 AM CDT 50 mcg/hr 10 mL/hr octreotide (SandoSTATIN) 500 mcg in Given - New sodium chloride 0.9% (NS) 100 mL IV drip Bag (std conc) 50 mcg/hr (10 mL/hr), Intravenous, 100 mL, at 10 mL/hr, CONTINUOUS, Starting o n Fri10/20/20 at 1330, Until Fri10/22/20 a t 0218, Initiate at 50 mcg/hr Titrate to keep: Do not titrate 50 mcg/hr 10 mL/hr Given - New Bag 10/21/2020 1:18 AM CDT 50 mcg/hr 10 mL/hr Given - New Bag 10/20/2020 2:53 PM CDT 10/26/2020 9:57 AM CDT 4 mg ondansetron (ZOFRAN) injection 4 mg Given 4 mg, Intravenous, EVERY 6 HOURS PRN, Starting on Fri10/20/20 at 0919, Until Fri10/26/20 at 1248, Nausea/Vomiting Injectable 4 mg Given 10/24/2020 8:38 AM CDT 4 mg Given 10/21/2020 7:57 PM CDT 4 mg Given 10/20/2020 3:32 PM CDT 4 mg Given 10/20/2020 9:25 AM CDT 10/23/2020 9:46 AM CDT 40 mg pantoprazole (PROTONIX) injection 40 mg Given 40 mg, Intravenous, TWICE DAILY, First dose on Fri10/20/20 at 1430, Until Discontinued 40 mg Given 10/22/2020 8:38 PM CDT 40 mg Given 10/22/2020 11:13 AM CDT 40 mg Given 10/21/2020 8:03 PM CDT 40 mg Given 10/21/2020 1:31 PM CDT 40 mg Given 10/20/2020 10:42 PM CDT 40 mg Given 10/20/2020 2:52 PM CDT 10/25/2020 9:01 PM CDT [address] (PROTONIX) tablet 40 mg Given 40 mg, Oral, DAILY, First dose on Fri10/23/20 at 2100, Until Discontinued, Do not crush or chew tablet. 40 mg Given 10/24/2020 8:21 PM CDT 40 mg Given 10/23/2020 8:10 PM CDT 10/20/2020 11:23 AM CDT 10 mEq 50 mL/hr potassium chloride in water IVPB 10 mEq Given - New 10 mEq, Intravenous, 50 mL, Administer Bag over 60 Minutes, EVERY 1 HOUR, 1 dose, First dose on Fri10/20/20 at 1200, NOTE : This is a HIGH ALERT Medication. 10/20/2020 12:51 PM CDT 10 mEq 50 mL/hr potassium chloride in water IVPB 10 mEq Given - New 10 mEq, Intravenous, 50 mL, Administer Bag over 60 Minutes, EVERY 1 HOUR, 1 dose, First dose on Fri10/20/20 at 1300, NOTE : This is a HIGH ALERT Medication. 10/26/2020 8:12 AM CDT 20 mEq potassium [...] 20 mEq Given 10/22/2020 11:16 AM CDT 10/20/2020 11:41 AM CDT 60 mEq potassium chloride SR (K-DUR) tablet 60 Given mEq 60 mEq, Oral, ONCE, 1 dose, On Fri10/20/20 at 1100, Do NOT break or crush tablet Give with meal or full glass of water 10/22/2020 9:31 AM CDT 60 mEq potassium chloride SR (K-DUR) tablet 60 Given mEq 60 mEq, Oral, ONCE, 1 dose, On Fri10/22/20 at 0845, - Tablet may be dispersed in water. Place tab in 30 mL of water for 40-60 seconds. - Gently swirl until fully dispersed. If particles remain after admin, add small amount of water and admin remaining content. - DO NOT CRUSH. Tablet may be split in half. Give with meal or full glass of water 10/21/2020 9:11 PM CDT 12.5 mg promethazine [...] 100 mg Given 10/21/2020 10:09 AM CDT 10/20/2020 11:25 AM CDT 250 mL 999 mL/hr sodium chloride 0.9 % infusion Given - New 250 mL, 250 mL, Intravenous, at 999 Bag mL/hr, BOLUS, 1 dose, On Fri10/20/20 at 1130 SODIUM CHLORIDE 0.9 % IV SOLP (Cabinet Override) NOW, 1 dose, On Fri10/20/20 at 0830, Created by cabinet override, Created by cabinet override 10/25/2020 9:01 PM CDT 5 mg warfarin [...] manage PER PHARMACY, 999 doses, Starting on e 10/24/20 at 0905, Until Toya 10/26/20 at [...] Take 37.5 mg Removed from by mouth [facility]REL [facility] Med List every 48 hours. 08/01/2020 10/26/2020 [...] DAILY, First Angie RN)17 58 dose on 10/22/20 at 1145, Until (Given - Provider: Discontinued, [...] pt d/c) cefTRIAXone (ROCEPHIN) IVP 1 g 1757 (Given - 1 g, Intravenous, EVERY 24 HOURS, First Provider: Sa rashid [facility]after last modification[facility] 10/24/20 at 1745, Until Discontinued, INSTR: IV PUSH -- RECONSTITUTE EACH 1 G M WITH 10 MLS of 0.9% NACL (NS) or STERIL E WATER (SW) or DEXTROSE 5% (D5W) 0929 (Med Not Given - Provider: Shalonda jacques RN - Reason: Patient Refused)2103 (Med Not Given - Provider: Elizabeth Stafford RN - Reason: Patient Refused) 0801 (Med Not Given - Provider: Shalonda jacques RN - Reason: Patient Refused) fluticasone propionate (FLONASE) nasal 0933 (Med Not Given spray 1 spray - Provider: Lilly 1 spray, Each Nostril, TWICE DAILY, CHRYSTAL Walton - [place] son: First dose on Fri10/20/20 at 1315, [...] 60.1 kg), Intravenous, ONCE, 1 dose, We 10/25/20 at 1815, INITIAL BOLUS (from vial) for heparin drip -- Weight-Based Heparin Algorithm (fluid restricted patients) - Initial IV bolus: 70 units/kg - Not to exceed 7500 units - Administer initial bolus from vial. NOTE: This is a HIGH ALERT Medication. 09 (Given - New Bag - Provider: Shalonda Santizo RN) 08 (Given - New Bag - Provider: Shalonda Santizo RN) iron sucrose (VENOFER) 300 mg in sodium 1332 (Given - New chloride 0.9% (NS) IVPB (COMPLETED) Bag - Provider: 300 mg, Intravenous, 115 mL, Administer Lilly Walton RN) over 150 Minutes, DAILY, 3 doses, First dose on Fri10/24/20 at 1245, Last dose o n Toya 10/26/20 at 0900, -STOP infusion immediately, and notify [...] increases in respiratory rate, tremor and convulsions. 06 (Given - Provider: Jojo Mcelroy) 06 (Given - Provider: Jojo Mcelroy) levothyroxine (SYNTHROID) tablet 75 mcg 610 (Given - 75 mcg, Oral, DAILY 30MIN BEFORE Provider: Maggi BREAKFAST, First dose on Fri10/20/20 at CHRYSTAL Salamanca) 1200, Until Discontinued, Give 1 hour before a meal. If patient is receiving tube feedings, hold tube feed 1hr befor e and 1hr after dose. 2100 (Given - Provider: oJjo Mcelroy) pantoprazole DR (PROTONIX) tablet 40 mg 2021 (Given - 40 mg, Oral, DAILY, First dose on Mon Provider: Christa al 10/23/20 at 2100, Until [...] with meal or full glass of water 09 (Given - Provider: Shalonda Santizo RN ) 08 (Given - Provider: Shalonda Santizo RN ) sertraline (ZOLOFT) tablet 100 mg 08 (Given - 100 mg, Oral, DAILY, First [...] DAILY PRN, Starting Fri10/20/20 at 0846, Until Fri10/26/20 at 1248, Constipation PO, Hold for loose stools. EPINEPHrine PF (ADRENALIN) injection 0. 3 mg 0.3 mg, Intramuscular, EVERY 5 MIN PRN , Starting Fri10/24/20 at 1134, Until Fri10/26/20 at [...] Administered bumetanide (BUMEX) tablet 2 mg 1 021 10/21/2020 diphenhydrAMINE (BENADRYL) injection 25 2 10/24/2020 mg EPINEPHrine PF (ADRENALIN) injection 0.3 1 10/24/2020 mg ferrous sulfate (FEOSOL) tablet 325 mg 1 10/24/2020 warfarin, pharmacy to manage 1 EPINEPHrine syringe 1 10/21/2020 fentaNYL citrate PF (SUBLIMAZE) 1 2020 injection 25 mcg fentaNYL citrate PF (SUBLIMAZE) 2 2020 injection 50 mcg metoclopramide (REGLAN) injection 10 mg 1 10/21/2020 promethazine (PHENERGAN) injection 6.25 1 10/21/2020 mg sterile water/simethicone irrigation 1 0 10/21/2020 aspirin tablet 325 mg 1 10/20/2020 docusate (COLACE) capsule 100 mg 1 10/20 fluticasone propionate (FLONASE) nasal 1 10/20/2020 spray 1 spray nitroglycerin (NITROSTAT) tablet 0.4 mg 1 10/20/2020 First Ordered Date Lab Orders Without Results [...]
--- OUTSIDE RECORDS SUMMARY | 2020-11-04 12:22 | XMS REPORT | Encounter Summary ---
Author Author [facility] Organization [facility] Address Unknown Phone Unavailable Care Team Providers Care Senior Ruby Developer Name Role Phone Self, Garfield OLVERA PCP Riley Hopson MD 3 Reason for Visit * Auth/Cert Referred By Contact Referred To Contact Status Reason Specialty Diagnoses / Procedures Diagnoses Chronic heart failure with preserved ejection fraction (HCC) Procedures RI UNLISTED CARDIOVASCULAR SERVICE/PROCEDURE CATHETERIZATION RIGHT HEART WITH INSERTION PULMONARY ARTERY SENSOR Encounter Details Care Team Description Date Type Department Javi Tillman MD [address] [place] [address] 10/21/2020 Hospital Cardiology:[facility] 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 documented as of this encounter Last Filed Vital Signs Reading Time Taken Comments Vital Sign 97/61 10/21/2020 9:56 AM CDT Blood Pressure - - Pulse - - Temperature - - Respiratory Rate - - Oxygen Saturation - - Inhaled Oxygen Concentration 61.7 kg (136 lb 0.4 oz) 10/21/2020 9:56 AM CDT Weight 157.5 cm (5' 2.01") 10/21/2020 9:56 AM CDT Height 24.87 10/21/2020 9:56 AM CDT Body Mass Index documented in this [...] impairment: No documented as of this encounter Medications at Time of Discharge [...] 10/26/2020 bumetanide (BUMEX) 2 mg Take 2.5 150 tablet 3 tablet tablets by mouth twice daily. 10/12/2020 10/26/2020 enoxaparin (LOVENOX) 60 Inject 0.6 mL 20 each 0 mg syringe under the skin every 12 hours for 10 days. 10/24/2020 FERROUS GLUCONATE PO Take 37.5 mg 0 by mouth every 48 hours. 08/08/2020 10/26/2020 metoprolol tartrate Take one-half 90 tablet 3 (LOPRESSOR) 25 mg tablet tablet by mouth twice daily. 08/01/2020 10/26/2020 spironolactone Take one 90 tablet 3 (ALDACTONE) 100 mg tablet tablet by mouth daily for 360 days. Take with food. 06/12/2020 10/26/2020 warfarin (COUMADIN) 2.5 Take one 30 tablet 0 mg tablet tablet by mouth daily. Take as directed by physician managing INR. documented as of this encounter Discharge Disposition Code Departure Means Destination Disposition Home Home or Self Care documented in this encounter Plan of Treatment Not on filedocumented as of this encounter Goals Goal Patient Associated Recent Progress Patient-Stat Aut hor Goal Type Problems ed? [facility] On track (10/23/2020 Yes [place], 1:06 PM CDT) CHRYSTAL Singh documented as of this encounter Procedures Comments Procedure Name Priority Date/Time Associated Diag nosis 2D + DOPPLER ECHO W/ GERRY 10/21/2020 CONTRAST 9:56 AM CDT documented in this encounter Visit Diagnoses Not on filedocumented in this encounter Administered Medications Action Date Dose Rate Site Medication Order MAR Action 10/21/2020 9:57 AM CDT 1.5 Diluted mL perflutren lipid microspheres (DEFINITY) Given injection 1-20 Diluted mL 1-20 Diluted mL, Intravenous, ONCE PRN, 1 dose, Starting on 10/21/20 at 0723 , Until 10/21/20 at 0957, For Procedure, A shift boss may only administer Definity through a saline lock. If IV is in use or a port, PICC, or central line is being used a nurse must administer. NOTE: This is a HIGH ALERT Medication., MAC Procedure Area Only - Medications documented in this encounter Orders First Ordered Date Medications Ordered That Might Not Have Count Last Ordered Date Been Administered perflutren lipid microspheres (DEFINITY) 1 10/21/2020 injection 1-20 Diluted mL documented in this encounter Additional Health Concerns Assessment Noted Time A fall risk assessment has been completed for the pat ient 10/21/2020 7:43 PM CDT PHQ-2 Depression Total Score: 0 08/24/2020 7:42 AM CDT documented as of this encounter
--- OUTSIDE RECORDS SUMMARY | 2020-11-04 12:22 | XMS REPORT | Encounter Summary ---
Author Author [facility] Organization [facility] Address Unknown Phone Unavailable Care Team Providers Care Metallurgical Engineer Name Role Phone Self, Garfield OLVERA PCP Riley Hopson MD 3 Reason for Visit * Reason Comments Nutrition Consultation Encounter Details Care Team Description Date Type Department Ceci Durand 10/25/2020 Clinical Cardiology: [facility] 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 She is being followed by our inpatient dietitian team. Met with her briefl y at bedside. Pt reports all of her nutrition questions have been answered and s he does not feel the need to reschedule her dietitian appointment at this time. Explained how to reschedule later if she chooses. Ceci Durand, MS, RD, LD Office Phone [phone] Available on DrAvailable documented in this encounter Plan of Treatment Not on filedocumented as of this encounter Goals Goal Patient Associated Recent Progress Patient-Stat Aut hor Goal Type Problems ed? [facility] On track (10/23/2020 Yes [place], 1:06 PM CDT) CHRYSTAL Singh documented as of this encounter Visit Diagnoses Not on filedocumented in this encounter Additional Health Concerns Assessment Noted Time A fall risk assessment has been completed for the pat ient 10/25/2020 9:00 PM CDT PHQ-2 Depression Total Score: 0 08/24/2020 7:42 AM CDT documented as of this encounter
--- OUTSIDE RECORDS SUMMARY | 2020-11-04 12:23 | XMS REPORT | Encounter Summary ---
Author Author [facility] Organization [facility] Address Unknown Phone Unavailable Care Team Providers Care Utilization Review Rn Name Role Phone Self, Garfield OLVERA PCP Riley Hopson MD 3 Reason for Visit * Reason Onset Date Comments Follow Up 09/08/2020 Encounter Details Care Team Description Date Type Department Fernie Camargo LPN Follow Up 09/08/2020 Telephone [facility]iology: [facility] [address] [place] [address] [address], [address] [place] [address] Social History Date Tobacco Use Types Packs/Day Years Used Never Smoker Smokeless Tobacco: Never Used Comments Alcohol Use Standard Drinks/Week Not Currently 0 (1 standard drink = 0.6 o z pure alcohol) Sex Assigned at Date Recorded Female 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 documented as of this encounter Functional Status Date of Assessment Functional Status Response 08/24/2020 Does the patient have a hearing impairment: No 08/24/2020 Does the patient have a visual impairment: Yes 08/24/2020 Does the patient have impaired ambulation: Yes 08/24/2020 Does the patient have an activity of daily living No (ADL) impairment: 08/24/2020 Does the patient have an instrumental activity of No daily living (IADL) impairment: Date of Assessment Cognitive Status Response 08/24/2020 Does the patient have a cognitive impairment: No documented as of this encounter Miscellaneous Notes * Telephone Encounter - Fernie Camargo LPN - 09/14/2020 9:33 AM CDT Spoke with pt, she reports she was seen at [facility] in [facility] and states t hat the imaging on her head did not show any bleeding or issues. Pt states her p tiago there told her to increase her salt intake because her sodium level was low on her labs. Discussed with pt her dietary sodium restrictions and informed pt that I will send a records request so we can review her labs and other record s. * Telephone Encounter - Fernie Camargo LPN - 09/12/2020 10:33 AM CDT Pt called reporting she had been seen in ED. Called and LM asking pt to clarify where she was seen so records could be requested. * Telephone Encounter - Fernie Camargo LPN - 09/08/2020 9:29 AM CDT Spoke with pt and reviewed recommendations from Berna Madison APRN to go to ED. Pt agreeable to plan and will go to ED in [place]. documented in this encounter Plan of Treatment Not on filedocumented as of this encounter Goals Goal Patient Associated Recent Progress Patient-Stat Aut hor Goal Type Problems ed? [facility] On track (10/23/2020 Yes [place], 1:06 PM CDT) CHRYSTAL Singh documented as of this encounter Visit Diagnoses Not on filedocumented in this encounter Additional Health Concerns Assessment Noted Time A fall risk assessment has been completed for the pat ient 09/07/2020 1:55 PM CDT PHQ-2 Depression Total Score: 0 08/24/2020 7:42 AM CDT documented as of this encounter
--- OUTSIDE RECORDS SUMMARY | 2020-11-04 12:23 | XMS REPORT | Encounter Summary ---
Author Author [facility] Organization [facility] Address Unknown Phone Unavailable Care Team Providers Care Costume Technician Name Role Phone Self, Garfield OLVERA PCP Riley Hopson MD 3 Reason for Visit * Reason Comments Other CardioMEMS Screen Encounter Details Care Team Description Date Type Department Kathi Chen RN Other (CardioMEMS Screen) 10/06/2020 Documentation [facility]iology: [facility] [address], [address] [place] [address] Social History Date Tobacco Use Types Packs/Day Years Used Never Smoker Smokeless Tobacco: Never Used Comments Alcohol Use Standard Drinks/Week Not Currently 0 (1 standard drink = 0.6 o z pure alcohol) Sex Assigned at Date Recorded Female 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 documented as of this encounter Functional Status Date of Assessment Functional Status Response 09/21/2020 Does the patient have a hearing impairment: [...] as of this encounter Progress Notes * Kathi Chen RN - 10/06/2020 10:16 AM CDT CardioMEMS Primary Screening Date: 10/06/20 Patient Referred by: Dr. Carlos Longo Heart failure admission within last 12 months Date: 06/01- Yes NYHA HF Class III (If no, please document NYHA Class) Yes Able to take dual antiplatelet or anticoagulants for 1 month post implant Y es Mechanical aortic valve will need Lovenox bridge Additional Screening if all above are yes Patient with active infection No History of recurrent PE or DVT (If yes, does patient have IVC filter?) No Unable to tolerate RHC No GFR < 25 mL/min and non-responsive to diuretics or on chronic renal dialysis No Congenital heart disease or mechanical right heart valve No Mechanical aortic valve Unrepaired severe valvular disease? Severe Tricuspid Regurgitation on echo during May admission. DOOR REPAIRER BUS device implanted within last 3 months? Date of Implant: N/A No BMI > 35, axillary chest circumference > 165 cm 40in No Patient unwilling to transmit device date or concerns with patient complian ce No Please ask patient the following: Echo in last 6 months? Date: 05/22/20 EF:60% Yes Patient manages own medications? (If no, who manages pt's medications?) Yes Patient/caregiver able to make medication interventions via phone? Yes CardioMEMS Pre-Implant Patient Education Education Completed by: Kathi Chen RN Video: How the CardioMEMs HF System Works N/A CardioMEMs Brochure 10/12/20 documented in this encounter Plan of Treatment Not on filedocumented as of this encounter Goals Goal Patient Associated Recent Progress Patient-Stat Aut hor Goal Type Problems ed? [facility] On track (10/23/2020 Yes [place], 1:06 PM CDT) CHRYSTAL Singh documented as of this encounter Visit Diagnoses Not on filedocumented in this encounter Additional Health Concerns Assessment Noted Time A fall risk assessment has been completed for the pat ient 09/21/2020 10:27 AM CDT PHQ-2 Depression Total Score: 0 08/24/2020 7:42 AM CDT documented as of this encounter
--- OUTSIDE RECORDS SUMMARY | 2020-11-04 12:23 | XMS REPORT | Encounter Summary ---
Author Author [facility] Organization [facility] Address Unknown Phone Unavailable Care Team Providers Care Skin Diving Teacher Name Role Phone Self, Garfield OLVERA PCP Riley Hopson MD 3 Encounter Details Care Team Description Date Type Department Santos Hcikman MD [address] [place] [address] [phone] 10/12/2020 Hospital Laboratory: [place] 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 [facility] On track (10/23/2020 Yes [place], 1:06 PM CDT) CHRYSTAL Singh documented as of this encounter Procedures Comments Procedure Name Priority Date/Time Associated Diag nosis HC CBC,AUTOMATED Routine 10/12/2020 Chronic heart failure 10:28 AM CDT with preserved ejection fraction (HCC) HC BASIC METABOLIC PANEL Routine 10/12/2020 Chron ic heart failure 10:28 AM CDT with preserved ejection fraction (HCC) documented in this encounter Results * CBC (10/12/2020 10:28 AM CDT) White Blood 5.5 4.5 - 11.0 K/UL [facility] Cells RBC 4.03 4.0 - 5.0 M/UL [facility] Hemoglobin 11.6 (L) 12.0 - 15.0 GM/DL [facility] Hematocrit 34.6 (L) 36 - 45 % [facility] MCV 85.8 80 - 100 FL [facility] MCH 28.8 26 - 34 PG [facility] MCHC 33.6 32.0 - 36.0 G/DL [facility] RDW 23.1 (H) 11 - 15 % [facility] Platelet Count 229 150 - 400 K/UL [facility] MPV 7.1 7 - 11 FL [facility] Specimen Blood Performing Organization Address City/[facility]/ZIP Code P shane Number [facility] [address] [place] [address] * BASIC METABOLIC PANEL (10/12/2020 10:28 AM CDT) Sodium 133 (L) 137 - 147 MMOL/L [facility] Potassium 3.9 3.5 - 5.1 MMOL/L [facility] Chloride 98 98 - 110 MMOL/L [facility] CO2 25 21 - 30 MMOL/L [facility] Anion Gap 10 3 - 12 [facility] Glucose 69 (L) 70 - 100 MG/DL [facility] Blood Urea 32 (H) 7 - 25 MG/DL [facility] Nitrogen Creatinine 1.38 (H) 0.4 - 1.00 MG/DL [facility] Calcium 9.4 8.5 - 10.6 MG/DL [facility] eGFR Non 39 (L) >60 mL/min [facility] Comment: [place] The eGFR is not validated f or use in drug dosing adjustments. Continue to use estimated creatinine clearance per dosing reference text. Please contact the Clinical Pharmacist for questions. eGFR 48 (L) >60 mL/min [facility] [place] Comment: The eGFR is not validated for use in drug dosing adjustments. Continue to use estimated creatinine clearance per dosing reference text. Please contact the Clinical Pharmacist for questions. Specimen Blood Performing Organization Address [facility]/[place]IP [facility] [place] [facility] [address] [place] [address] documented in this encounter Visit Diagnoses Diagnosis Chronic heart failure with preserved ej ection fraction (HCC) documented in this encounter Additional Health Concerns Assessment Noted Time A fall risk assessment has been completed for the pat ient 10/12/2020 10:26 AM CDT PHQ-2 Depression Total Score: 0 08/24/2020 7:42 AM CDT documented as of this encounter
--- OUTSIDE RECORDS SUMMARY | 2020-11-04 12:23 | XMS REPORT | Encounter Summary ---
Author Author [facility] Organization [facility] Address Unknown Phone Unavailable Care Team Providers Care Pin Ticket Machine Operator Name Role Phone Self, Garfield OLVERA PCP Riley Hopson MD 3 Encounter Details Care Team Description Date Type Department Kathi Chen RN 10/19/2020 Prep for Case [facility]iology: [facility] [address], [address] [place] [address] Social History Date Tobacco Use Types Packs/Day Years Used Never Smoker Smokeless Tobacco: Never Used Comments Alcohol Use Standard Drinks/Week Not Currently 0 (1 standard drink = 0.6 o z pure alcohol) Sex Assigned at Date Recorded Female 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 [facility] On track (10/23/2020 Yes [place], 1:06 [...]
--- OUTSIDE RECORDS SUMMARY | 2020-11-04 12:23 | XMS REPORT | Encounter Summary ---
Author Author [facility] Organization [facility] Address Unknown Phone Unavailable Care Team Providers Care Cinetechnician Name Role Phone Self, Garfield OLVERA PCP Riley Hopson MD 3 Reason for Visit * Reason Onset Date Comments General Question 10/03/2020 Swelling 10/03/2020 Encounter Details Care Team Description Date Type Department Wisam Valencia MD [address] [address] General Question; Swelling 10/03/2020 Telephone Oncology: Cancer [address] [address] Social History Date Tobacco Use Types Packs/Day Years Used Never Smoker Smokeless Tobacco: Never Used Comments Alcohol Use Standard Drinks/Week Not Currently 0 (1 standard drink = 0.6 o z pure alcohol) Sex Assigned at Date Recorded Female 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 She was informed this may be r/t liver and possible liver swelling. She is wond ering if we need to evaluate this. I spoke with pt and explained we would defer this to hepatology, Dr. Marti, and advised she contact their office to discus and possibly set up appt sooner for f urther evaluation. She agreed with plan and verbalized understanding, no further questions or concerns. documented in this encounter Plan of Treatment Not on filedocumented as of this encounter Goals Goal Patient Associated Recent Progress Patient-Stat Aut hor Goal Type Problems ed? [facility] On track (10/23/2020 Yes [place], 1:06 [...]
--- OUTSIDE RECORDS SUMMARY | 2020-11-04 12:23 | XMS REPORT | Encounter Summary ---
Author Author [facility] Organization [facility] Address Unknown Phone Unavailable Care Team Providers Care Turbo Generator Oiler Name Role Phone Self, Garfield OLVERA PCP Riley Hopson MD 3 Reason for Visit * Reason Comments Heme/Onc Care Encounter Details Care Team Description Date Type Department Wisam Valencia MD [address] [address] Iron deficiency anemia, unspecified iron deficiency anemia type (Primary Dx); Cirrhosis of liver with ascites, unspecified hepatic cirrhosis type (HCC) 09/21/2020 Office Visit Oncology: Cancer Patti nter, [address] [address] Social History Date Tobacco Use Types Packs/Day Years Used Never Smoker Smokeless Tobacco: Never Used Comments Alcohol Use Standard Drinks/Week Not Currently 0 (1 standard drink = 0.6 o z pure alcohol) Sex Assigned at Date Recorded 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 Name: Zaria Paulson : 1960 AGE: 60 y .o. DATE OF SERVICE: 09/21/2020 Subjective: Reason for Visit: No chief complaint on file. Zaria Paulson is a 60 y.o. female. Cancer Staging No matching staging information was found for the patient. History of Present Illness Obtained patient's verbal consent to treat them and their agreement to [facility] policy and NPP via this telehealth visit during the Coronavirus Public He alth Emergency Time in review of chart: 6 min Time projection camera operator: [address] Carlos Longo initially requested consultation on Mrs. Rachael Paulson regarding an emia. In 2004 the patient reports a history of non-Hodgkin's lymphoma, of stage III. This was in [facility]. She was treated with multi agent chemotherapy. She has a known history of liver cirrhosis. She tells me that she had a liver b iopsy in 2017. The patient was admitted June 01, 2020 to [facility] with chest pain and dyspnea. She was evaluated by GI, along with cardiology and they pulmonary hyp ertension specialty group. She was treated with diuresis for heart failure. 2D echo (05/22/2020): (LV) normal size, consider hypertrophic, systolic function n ormal; (RV) moderately dilated. Systolic function "probably normal "; biatrial dilation; positive agitated saline microcavitations contrasted for evidence of i ntracardiac flow communication. Mild mitral regurgitation. Severe tricuspid ve getation. Elevated PA pressures. CTA chest on admission: No evidence of pulmonary bolus. Cardiomegaly with mild pulmonary edema and moderate bilateral pleural effusions. Findings are compatib le with CHF/volume overload. Dilation of the main pulmonary artery with mild as ymptomatic right heart enlargement, likely manifestation reported pulmonary hype rtension. CT Abdomen/pelvis on admission: Moderate volume abdominal pelvic ascites, diffus e body wall edema, diffuse venous dilation compatible with volume overload. Mil d bowel wall thickening, likely secondary to congestion. No bowel obstruction. Normal-sized liver with nodular contour and heterogeneous enhancement, which may be secondary to fibrosis/hepatic VQ scan (06/02/2020): No evidence of pulmonary embolism EGD done at that hospitalization: Colonoscopy done in may 2020: She was discharged with a hemoglobin of 8.4. Ref. Range 06/10/2020 05:05 06/11/2020 04:40 06/12/2020 04:34 07/10/2020 00:00 Hemoglobin Latest Ref Range: 12.0 - 15.0 GM/DL 9.3 (L) 8.7 (L) 8.4 (L) Hematocrit Latest Ref Range: 36 - 45 % 27.6 (L) 25.6 (L) 24.9 (L) Platelet Count Latest Ref Range: 150 - 400 K/UL 293 265 243 White Blood Cells Latest Ref Range: 4.5 - 11.0 K/UL 6.9 6.6 6.8 When she came in for checkup on July 17, 2020 her hemoglobin was down to 6.6. She had 1 unit of red blood cell transfusion. Ref. Range 07/24/2020 00:00 Hemoglobin Latest Ref Range: 11.7 - 15.5 7.7 (L) Hematocrit Latest Ref Range: 35.0 - 45.0 25.5 (L) Platelet Count Unknown 391 White Blood Cells Unknown 5.5 RBC Latest Ref Range: 3.80 - 5.10 3.05 (L) Past medical history: Non-Hodgkin's lymphoma, liver cirrhosis, elevated right he art pressures and portal hypertension 1975: When she was 16 years old, she underwent open heart surgery, unclear what was the indication however she was told that she had aortic valve repaired which is quite unusual unclear if there was any other shunting physiology. Second sternotomy 1997, she had severe congestive heart failure symptoms and fou nd to have aortic valve regurgitation and undergone bioprosthetic aortic valve r eplacement. Third sternotomy in 2010, she had failed bioprosthetic aortic valve therefore un derwent third sternotomy in 2010 with mechanical aortic valve replacement and si nce then she has been on anticoagulation. She also has history of atrial fibrillation however she is on anticoagulation wi th warfarin due to mechanical aortic valve In 2004, she was diagnosed with NHL and underwent chemotherapy. She did have evidence of Streptococcus viridans infection in 2017 however on JANIE the mechanical aortic valve did not show any evidence of endocarditis. Additional laboratory reviewed: Ref. Range 08/24/2020 09:19 Haptoglobin Latest Ref Range: 16 - 200 MG/DL <30 Sodium Latest Ref Range: 137 - 147 MMOL/L 131 (L) Potassium Latest Ref Range: 3.5 - 5.1 MMOL/L 3.7 Chloride Latest Ref Range: 98 - 110 MMOL/L 94 (L) CO2 Latest Ref Range: 21 - 30 MMOL/L 26 Anion Gap Latest Ref Range: 3 - 12 11 Blood Urea Nitrogen Latest Ref Range: 7 - 25 MG/DL 30 (H) Creatinine Latest Ref Range: 0.4 - 1.00 MG/DL 1.71 (H) eGFR Non Latest Ref Range: >60 mL/min 31 (L) eGFR Latest Ref Range: >60 mL/min 37 (L) Glucose Latest Ref Range: 70 - 100 MG/DL 82 Albumin Latest Ref Range: 3.5 - 5.0 G/DL 4.0 Calcium Latest Ref Range: 8.5 - 10.6 MG/DL 9.7 Total Bilirubin Latest Ref Range: 0.3 - 1.2 MG/DL 1.1 Bilirubin, Direct Latest Ref Range: <0.4 MG/DL 0.4 (H) Total Protein Latest Ref Range: 6.0 - 8.0 G/DL 7.5 Zinc Unknown 0.46 (L) AST (SGOT) Latest Ref Range: 7 - 40 U/L 24 ALT (SGPT) Latest Ref Range: 7 - 56 U/L 14 Alk Phosphatase Latest Ref Range: 25 - 110 U/L 70 Ref. Range 06/01/2020 17:07 KELSY Screen Latest Ref Range: <80 TITER <80 Ref. Range 08/03/2020 15:19 Vitamin B12 Latest Ref Range: 180 - 914 PG/ML 1,535 (H) Iron Latest Ref Range: 50 - 160 MCG/DL 15 (L) % Saturation Latest Ref Range: 28 - 42 % 3 (L) Iron Binding-TIBC Latest Ref Range: 270 - 380 MCG/DL 493 (H) Ferritin Latest Ref Range: 10 - 200 NG/ML 24 Sodium Latest Ref Range: 137 - 147 MMOL/L 134 (L) Potassium Latest Ref Range: 3.5 - 5.1 MMOL/L 3.6 Chloride Latest Ref Range: 98 - 110 MMOL/L 94 (L) CO2 Latest Ref Range: 21 - 30 MMOL/L 29 Anion Gap Latest Ref Range: 3 - 12 11 Blood Urea Nitrogen Latest Ref Range: 7 - 25 MG/DL 25 Creatinine Latest Ref Range: 0.4 - 1.00 MG/DL 1.45 (H) eGFR Non Latest Ref Range: >60 mL/min 37 (L) eGFR Latest Ref Range: >60 mL/min 45 (L) Glucose Latest Ref Range: 70 - 100 MG/DL 75 Albumin Latest Ref Range: 3.5 - 5.0 G/DL 3.7 Calcium Latest Ref Range: 8.5 - 10.6 MG/DL 9.5 Total Bilirubin Latest Ref Range: 0.3 - 1.2 MG/DL 1.0 Total Protein Latest Ref Range: 6.0 - 8.0 G/DL 7.0 AST (SGOT) Latest Ref Range: 7 - 40 U/L 23 ALT (SGPT) Latest Ref Range: 7 - 56 U/L 10 Alk Phosphatase Latest Ref Range: 25 - 110 U/L 78 TSH Latest Ref Range: 0.35 - 5.00 MCU/ML 4.24 Social history: She lives in [facility]. Not a smoker, Family history: No liver disease in the family INTERVAL HISTORY: I set her up for INFED but she was already set up with GI for injectafer so she stayed with that. Injectafer given for JANKI 09/05/20 Ref. Range 08/03/2020 15:19 08/24/2020 09:19 09/20/2020 09:42 Hemoglobin Latest Ref Range: 12.0 - 15.0 GM/DL 8.2 (L) 9.5 (L) Hematocrit Latest Ref Range: 36 - 45 % 26.2 (L) 29.9 (L) Platelet Count Latest Ref Range: 150 - 400 K/UL 358 293 White Blood Cells Latest Ref Range: 4.5 - 11.0 K/UL 5.5 5.0 No lab done before this visit like planned The patient has ongoing ascites. She has had endoscopy without any evidence of portal hypertension or variceal bleeding. She has been on Coumadin She denies any melena or hematochezia. No nosebleeds or gum bleeding. No hemat uria. No jaundice or itching. She has dilated chest veins. She has not had any encephalopathy although she gets a little unsteady on her fe et. She has been having normal bowel movements. She never had any pica for ice. Reviewed her recent liver biopsy overread: Final Diagnosis: A. Outside case "[id number]" (Date Collected: 07/14/2016): 2. Liver, biopsy: Central vein and perivenular sinusoidal dilatation consistent with hepatic vascular outflow impairment. 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 Review of Systems No headaches or vision changes No swallowing problems No new lymph nodes enlarged No bruising or petechiae No breathing difficulty The patient denies chest pain or pleurisy No abdominal pain Ascites No change in bowel habits or gastrointestinal bleeding No hematuria There has been no change in arthralgias No new skin rashes No leg edema noted Objective: ascorbic acid (VITAMIN C) 500 mg tablet [...] Take as directed by physician managing INR.) There were no vitals filed for this visit. There is no height or weight on file to calculate BMI. Pain Addressed: N/A Patient Evaluated for a Clinical Trial: Patient not eligible for a treatment tri al (including not needing treatment, needs palliative care, in remission). Eastern Cooperative Oncology Group performance status is 1, Restricted in physic ally strenuous activity but ambulatory and able to carry out work of a light or sedentary nature, e.g., light house work, office work. Physical Exam In general, the patient is alert and pleasant Some slowness in answers, but appropriate Assessment and Plan: 1. Iron deficiency anemia, presumed from slow occult possible GI blood loss. I am going to go ahead and check her iron panel today. I am checking her B12 pane l as well. She has a normal white blood cell count and platelet count and I bel ieve her bone marrow production is likely intact. I set her up for INFED but she was already set up with GI for injectafer so she stayed with that. Injectafer given for JANKI 09/05/20 Will need CBC and Iron - will send lab orders in advance of her Hepatology appt. She would like to get labs at [facility] in [facility] 2. History of liver cirrhosis "secondary to chemotherapy" unknown etiology She has been referred to the hepatology specialist at . Sees Dr Marti in late Nov She has ascites and likely hepatic encephalopathy (mild) 3. High output heart failure secondary to liver cirrhosis 4. Mechanical aortic valve in 2010 on chronic anticoagulation 5. History of atrial fibrillation currently on anticoagulation 6. History of non-Hodgkin's lymphoma status post chemotherapy in 2004 in [facility] on CC: Dr Gray documented in this encounter Plan of Treatment Not on filedocumented as of this encounter Goals Goal Patient Associated Recent Progress Patient-Stat Aut hor Goal Type Problems ed? [facility] On track (10/23/2020 Yes Sheldon, 1:06 PM CDT) CHRYSTAL Singh documented as of this encounter Visit Diagnoses Diagnosis Iron deficiency anemia, unspecified iro n deficiency anemia type - Primary Cirrhosis of liver with ascites, unspec ified hepatic cirrhosis type (HCC) documented in this encounter Additional Health Concerns Assessment Noted Time A fall risk assessment has been completed for the pat ient 09/21/2020 10:27 AM CDT PHQ-2 Depression Total Score: 0 08/24/2020 7:42 AM CDT documented as of this encounter
--- OUTSIDE RECORDS SUMMARY | 2020-11-04 12:23 | XMS REPORT | Encounter Summary ---
Author Author [facility] Organization [facility] Address Unknown Phone Unavailable Care Team Providers Care Slubber Frame Changer Name Role Phone Self, Garfield OLVERA PCP Riley Hopson MD 3 Reason for Visit * Reason Comments Labs Only COVID result Encounter Details Care Team Description Date Type Department Kathryn Barbosa MA Labs Only (COVID result) 10/17/2020 Documentation Cardiology: [facility] 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 [facility] On track (10/23/2020 Yes Sheldon, 1:06 [...]
--- OUTSIDE RECORDS SUMMARY | 2020-11-04 12:23 | XMS REPORT | Encounter Summary ---
Author Author [facility] Organization [facility] Address Unknown Phone Unavailable Care Team Providers Care Mds Coordinator Name Role Phone Self, Garfield OLVERA PCP Riley Hopson MD 3 Reason for Visit * Reason Onset Date Comments Other 10/05/2020 Encounter Details Care Team Description Date Type Department Allison Marti MD [address] [facility] [id number] [place] [address] Other 10/05/2020 Telephone Transplant: Main Ca mpus, [facility] [address] [facility] [address] [place] [address] Social History Date Tobacco Use Types Packs/Day Years Used Never Smoker Smokeless Tobacco: Never Used Comments Alcohol Use Standard Drinks/Week Not Currently 0 (1 standard drink = 0.6 o z pure alcohol) Sex Assigned at Date Recorded Female 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 Ex plained that Dr. Marti and Dr. Longo had discussed her case and cardiology will manage and set up an appointment for her to be seen. Pt will reach out to cardio logy office if she does not hear anything soon. documented in this encounter Plan of Treatment Not on filedocumented as of this encounter Goals Goal Patient Associated Recent Progress Patient-Stat Aut hor Goal Type Problems ed? [facility] On track (10/23/2020 Yes Sheldon, 1:06 PM [...]
--- OUTSIDE RECORDS SUMMARY | 2020-11-04 12:23 | XMS REPORT | Encounter Summary ---
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 [facility] On track (10/23/2020 Yes Sheldon, 1:06 [...]
--- OUTSIDE RECORDS SUMMARY | 2020-11-04 12:23 | XMS REPORT | Encounter Summary ---
Author Author [facility] Organization [facility] Address Unknown Phone Unavailable Care Team Providers Care Medical Coding Auditor Name Role Phone Self, Garfield OLVERA PCP Riley Hopson MD 3 Reason for Visit * Reason Onset Date Comments Worsening Symptoms 09/27/2020 Other 10/03/2020 Symptoms improving see note Encounter Details Care Team Description Date Type Department Fernie Camargo LPN Worsening Symptoms; Other (Symptoms impr oving see note) 09/27/2020 Telephone Cardiology: [facility] [address] [place] [address] [address], [address] [place] [address] Social History Date Tobacco Use Types Packs/Day Years Used Never Smoker Smokeless Tobacco: Never Used Comments Alcohol Use Standard Drinks/Week Not Currently 0 (1 standard drink = 0.6 o z pure alcohol) Sex Assigned at Date Recorded Female 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 Patient Status patient is an established patient with [facility]. Signs and Symptoms SOA improved Still having abdominal swelling, says she is having discomfort Medication Review bumex 5 mg BID Metolazone 2.5 mg, pt took on 09/27, 09/29 and 09/30. Fluid and Sodium Intake Patient is drinking under 64 oz of fluid daily Date Weight B/P Pulse 10/03 136 10/02 135 / 135 Date Weight B/P Pulse 09/27 142 7/6 144 7/5 137 7/4 139.6 7/3 139 7/2 7 134 * Telephone Encounter - Blanche Padilla RN - 10/03/2020 8:40 AM CDT LMOM for pt with Dr. Longo's recommendations below. Reiterated to patient to do daily weights and record. Closely watch fluid and sodium intake and follow guide lines for fluid restriction and low-sodium diet. Notify us if weight up 3 lbs ov ernight or 5 lbs in 1 week or if any questions or concerns. Pt instructed to steven degroot upcoming appts with Hematology and liver transplant team. Carlos Longo MD to Helen Waggoner RN [facility] Nurse Hf Team [place] 8:15 AM We will be happy to see her if any cardiovascular recommendations required for f urther liver transplant evaluation otherwise keeping her goal weight 235 pounds weight with diuretics would be the optimal strategy from heart standpoint. I would recommend further coordination of her care and diuretic adjustment and w eight gain her symptoms with the liver transplant team and hematology rather jaylon n cardiology. September 28, 2020 DM 2:11 PM Fernie Camargo LPN routed this conversation to [facility] Nurse Hf Team Fernie Luna LPN Pt states she took an extra metolazone last night and is now down 5 lbs. Pt says her symptoms have improved. * Telephone Encounter - Fernie Camargo LPN - 09/28/2020 2:11 PM CDT Pt states she took an extra metolazone last night and is now down 5 lbs. Pt says her symptoms have improved. * Telephone Encounter - Helen Waggoner RN - 09/27/2020 3:10 PM CDT Called patient to follow up on previous call. Pt states her main concern is abdo ovi swelling, started beginning of September. "feeling hard" She denies worsened SOB at this time. She does not note any swelling to her extr emities, only abdomen. Denies lightheadedness. Weight today 09/27 142 lb. BP normal per pt, SBP in upper 90's Last OV 09/07 with Berna Madison APRN, weight at this visit was 135 lb Pt taking HF medications as prescribed. Denies early satiety or poor intake. Hav ing regular bowels. Will forward to Dr. Longo for further recommendations. * Telephone Encounter - Fernie Camargo LPN - 09/27/2020 12:40 PM CDT Patient Status patient is an established patient with [facility]. Signs and Symptoms Abdominal swelling "it is very hard" No leg swelling More SOA with activity Medication Review bumex 5 mg BID Metolazone 2.5 mg on wednesdays and saturdays [place] 100 Fluid and Sodium Intake Patient is drinking under 64 oz of fluid daily Date Weight B/P Pulse 09/27 142 7/6 144 7/5 137 7/4 139.6 7/3 139 7/2 7/ 134 documented in this encounter Plan of Treatment Not on filedocumented as of this encounter Goals Goal Patient Associated Recent Progress Patient-Stat Aut hor Goal Type Problems ed? [facility] On track (10/23/2020 Yes Sheldon, 1:06 [...]
--- OUTSIDE RECORDS SUMMARY | 2020-11-04 12:23 | XMS REPORT | Encounter Summary ---
Author Author [facility] Organization [facility] Address Unknown Phone Unavailable Care Team Providers Care Repair Electric Motor Assembler Name Role Phone Self, Garfield OLVERA PCP Riley Hopson MD 3 Encounter Details Care Team Description Date Type Department Orquidea Marti MD [address] [facility] [id number] [place] [address] [phone] Other cirrhosis of liver (HCC) 09/20/2020 Hospital Laboratory: Main Ca mpus, Encounter [facility] [address], [address] [place] [address] Social History Date Tobacco Use Types Packs/Day Years Used Never Smoker Smokeless Tobacco: Never Used Comments Alcohol Use Standard Drinks/Week Not Currently 0 (1 standard drink = 0.6 o z pure alcohol) Sex Assigned at Date Recorded Female 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 calcium carbonate Take 1,250 mg 0 (OS-KRUPA) 1250 mg tablet by mouth daily. 05/09/2020 ergocalciferol (VITAMIN Take 1 0 D-2) [...] CAPSULES BY MOUTH TWICE DAILY WITH MEALS 07/18/2020 10/26/2020 bumetanide (BUMEX) 2 mg Take 2.5 150 tablet 3 tablet tablets by mouth twice daily. 10/24/2020 FERROUS GLUCONATE PO Take 37.5 mg [...] Patient-Stat Aut hor Goal Type Problems ed? [facility] On track (10/23/2020 Yes Sheldon, 1:06 PM CDT) CHRYSTAL Singh documented as of this encounter Procedures Comments Procedure Name Priority Date/Time Associated Diag nosis OH CONSLTJ&REPRT SLIDES 09/20/2020 PREPARED ELSEWHERE 9:42 AM CDT PATHOLOGY REPORTS FROM 09/20/2020 OUTSIDE SCAN 12:00 AM CDT documented in this encounter Results * OUTSIDE PATHOLOGY CONSULT (09/20/2020 9:42 AM CDT) PATHOLOGY [facility] [email or web address] Department of Pathology and Laboratory Medicine [address] [place] [id number] Surgical Pathology Office: [phone] PATHOLOGY CONSULTATION NAME: DANIELLE RODGERS. SURG PATH #: [id number] MR #: [id number] ALT ID #: LOCATION: [facility] DATE OF PROCEDURE: 09/20/2020 AGE: 60 SEX: F DATE RECEIVED: 09/20/2020 : 1960 TIME RECEIVED: 09:42 PHYSICIAN: ORQUIDEA MARTI MD DATE OF REPORT: 09/20/2020 COPY TO: DATE OF PRINTIN09/20/2020 OUTSIDE INSTITUTION: [facility] Department of Pathology [address] [place] [id number] ############################## ############################## ############ Final Diagnosis: A. Outside case "[id number]" (Date Collected: 07/14/2016): 2. Liver, biopsy: Central [...] Material Received: A: Outside Slides, x11 slides, [id number], [facility], Department of Pathology, [address] [place] [address] History: 60-year-old female. Gross Description: A. Received are eleven (11) total outside slides and a report labeled "[id number]". mr/09/20/2020 If immunohistochemical stains and/or in situ hybridization are cited in this report, the performance characteristics were determined by the Department of Pathology and Laboratory Medicine of the [facility] ([employer]) in compliance with CLIA'88 regulations. [...] of Pathology and Laboratory Medicine of the [facility]. It has not been cleared or approved by the FDA. The FDA has determined that such clearance or approval is not necessary. Specimen Performing Organization Address City/State/ZIP Code P shane Number MAIN LAB [address] [place] [address] * PATHOLOGY REPORTS FROM OUTSIDE SCAN (09/20/2020 12:00 AM CDT) Narrative Performed At This result has an attachment that is n ot available. Ordered by an unspecified provider. documented in this encounter Visit Diagnoses Not on filedocumented in this encounter Additional Health Concerns Assessment Noted Time A fall risk assessment has been completed for the pat ient 09/07/2020 1:55 PM CDT PHQ-2 Depression Total Score: 0 08/24/2020 7:42 AM CDT documented as of this encounter
--- OUTSIDE RECORDS SUMMARY | 2020-11-04 12:23 | XMS REPORT | Encounter Summary ---
Author Author [facility] Organization [facility] Address Unknown Phone Unavailable Care Team Providers Care Tire Room Supervisor Name Role Phone Self, Garfield OLVERA PCP Riley Hopson MD 3 Reason for Referral * Consult, Test & Treat (Routine) Referred By Contact Referred To Contact Status Reason Specialty Diagnoses / Procedures Nithya Madison APRN-NP [address] [place] [address] [facility] [address] [facility], [address] [place] [address] Authorized Specialty Services Cardiology Diagnoses Required Chronic heart failure with preserved ejection fraction (HCC) Electronically signed by Nithya CATALAN (Nikki) at Reason for Visit * Reason Comments Follow Up * Consult, Test & Treat (Routine) Referred By Contact Referred To Contact Status Reason Specialty Diagnoses / Procedures Nithya Madison APRN-NP [address] [place] [address] Pending Review Procedures REQUEST FOR CARDIOLOGY APPOINTMENT Encounter Details Care Team Description Date Type Department Nithya Madison APRN-NP [address] [place] [address] [phone] Follow Up 10/12/2020 Office Visit Cardiology: [facility] 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 documented as of this encounter Last Filed Vital Signs Reading Time Taken Comments Vital Sign 99/62 10/12/2020 10:26 AM CDT Blood Pressure 89 10/12/2020 10:26 AM CDT Pulse 36.7 C (98 F) 10/12/2020 10:26 AM CDT Temperature - - Respiratory Rate 96% 10/12/2020 10:26 AM CDT Oxygen Saturation - - Inhaled Oxygen Concentration 61.7 kg (136 lb) 10/12/2020 10:26 AM CDT Weight 157.5 cm (5' 2") 10/12/2020 10:26 AM CDT Height 24.87 10/12/2020 10:26 AM CDT Body Mass Index documented in [...] impairment: No documented as of this encounter Patient Instructions * Patient Instructions* Yesica Oliver MA - 10/12/2020 11:30 AM CDT Thank you for coming to [facility]. Your instructions tod ay: 1. Recommendations: - No medication changes. - Will refer you to planned giving officer to help with food choices given all the complexiti es you have going on with your health (maintaining caloric intake with needing l ow sodium). - Continue to follow a 2 gm sodium diet and 2 L fluid restriction. - Call if you gain 3 lbs overnight or 5 lbs in 1 week OR if you have worsening s ymptoms (increased shortness of breath/swelling). - To report symptoms to the heart failure team call [phone]. - Will plan [facility] on 09/23. 2. Next follow up appointment in 4 weeks with Berna Madison. For up to date information on the COVID-19 virus, visit the CDC website. General supportive care during cold and flu season and infection prevention reminders: o Wash hands often with soap and water for at least 20 seconds o Cover your mouth and nose o Stay home if sick and symptoms mild or manageable - If you must be around people wear a mask If you are having symptoms of a lower respiratory infection (cough, shortnes s of breath) and/or fever AND either traveled in last 30 days (internationally o r to region of exposure) OR known exposure to patient with COVID19: o Call your primary care provider for questions or health needs. - Tell your doctor about your recent travel and your symptoms o In a medical emergency, call 127 or go to the nearest emergency room. If you wish to contact us, please call and leave a message for the heart failure nurses at [phone]. For urgent issues after hours, on the weekends or holidays, please call [phone] to be connected with the nurse or doctor cotton ball machine tender. To schedule or change an appointment call [phone]. MD Basilia Jeffers APRN Nikki Mattison, RYAN Parham RN [facility] Your Heart Failure Symptom Awareness and Action Plan Every Day Action Plan Weigh yourself in the morning before breakfast. Write it down and compare it to yesterday's weight. Take your medicine, as prescribed. Please call if you have concerns about the side effects, cost or refills. Check for worsened swelling in your feet, ankles and stomach Follow a 2000mg salt diet. Keep all healthcare appointments Green Zone Good! Symptoms are under control No shortness of breath No increase in ankle swelling No weight gain No chest pain No change in your usual activity Continue to follow your everyday action plan. Yellow Zone If you have any of these symptoms, please call the heart failure nurses: [phone] Increased shortness of breath with activity Weight gain of 3 pounds in one day or 5 pounds in a week Increased swelling in your ankles or legs Increased swelling in your stomach Increasing fatigue You may need an adjustment of your medications. Red Zone These are urgent symptoms. Please call the heart failure nurses: [phone] Shortness of breath at rest or waking up at night feeling short of breath or co ughing Increased number of pillows used or needing to sit upright to sleep Chest tightness at rest Dizziness, lightheadedness or feeling faint You need to schedule an appointme nt Emergency Zone call [phone] Worsening chest tightness or pain that is not rel ieved by medication Severe shortness of breath and a cough with pink, frothy sputum documented in this encounter Progress Notes * Nithya Madison APRN-NP (Nikki) - 10/12/2020 11:30 AM CDT Date of Service: 10/12/2020 Zaria Paulson is a 60 y.o. female. She is followed by Dr. Longo HPI Her past medical history is significant for heart failure with preserved ejectio n fraction, nonischemic cardiomyopathy, s/p aortic valve replacement x3 (on senior applications architect shantanu anticoagulation for mechanical valve), paroxysmal atrial fibrillation, hype rtension, previous endocarditis, iron deficiency anemia -received IV iron, chron ic kidney disease, hypothyroidism, depression, non-Hodgkins lymphoma and cirrho sis (etiology secondary to chemotherapy from treatment with non-Hodgkin lymphoma ). She was hospitalized 05/2020 for heart failure. Her echocardiogram revealed sever e tricuspid regurgitation with an estimated PA pressure of 64 mmHg, markedly harrison vated central venous pressure and an EF of 60%. Her cardiac catheterization show ed RA 20, PA 49/24 with a mean of 32, pulmonary capillary wedge pressure 25, PA saturation 79%, RA saturation 81%, thermal cardiac output 5.33, with index 3.18, Yg cardiac output 9.2 with cardiac index 5.5 and overall minimal nonobstructi ve coronary artery disease. CT revealed cardiomegaly with mild pulmonary edema a nd moderate bilateral pleural effusions compatible with CHF/volume overload. She was diuresed, discharged home and instructed to follow up with cardiology. Her goal dry weight is 135 pounds. [...] anticoagulation 06/07/2020 warfarin History of endocarditis 06/07/2020 Review of Systems Constitution: Positive for malaise/fatigue. [...] body surface area. 5. Cardiac output by Gy is 9.24 L/minute with a cardiac index [...] EF of 60%. -GDMT:Spironolactone 100 mg daily, [id number] twice daily, metolazone 2.5 mg twice weekly -Today, she describes NYHA Functional ClassIII-IVsymptoms, appears hypervole angel luis by exam. Her lowest weight is 129 pounds but she was up to 144 pounds. key took the additional metolazone is now [...] anticoagulation is managed by Dr. Hopson. Severe Tricuspid Regurgitation: -Her echo on 05/22/2020 showed severe tricuspid [...] concerns prior to the next appointment. Total [id number]. Estimated counseling time 20minutes. Thank you for allowing me to participate in the care of this patient. If you hav e any questions please do not hesitate to contact our office. Berna Madison, DNP, HOOP DRIVING MACHINE OPERATOR HELPER, 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-C Collaborating Physician: Dr. Ramo Lamb [facility] Current Medications (including today's revisions) ascorbic [...] physician managing INR.) documented in this encounter Plan of Treatment Order Schedule Name Type Priority Associated Diag noses Ordered: 10/12/2020 AMB REFERRAL TO NUTRITION Outpatient Routine Ms Sql Server Developer shantanu heart failure Referral with preserved ejection fraction (HCC) documented as of this encounter Goals Goal Patient Associated Recent Progress Patient-Stat Aut hor Goal Type Problems ed? [facility] On track (10/23/2020 Yes [place], 1:06 PM CDT) CHRYSTAL Singh documented as of this encounter Procedures Comments Procedure Name Priority Date/Time Associated Diag nosis ECG-SCAN 10/12/2020 12:00 AM CDT documented in this encounter Results * BNP (B-TYPE NATRIURETIC PEPTI) (10/12/2020 10:28 AM CDT) B Type 421.0 (H) 0 - 100 PG/ML [facility] Natriuretic Peptide Specimen Blood Performing Organization Address City/State/ZIP Code P shane Number MAIN LAB [address] [place] [address] * ECG-SCAN (10/12/2020 12:00 AM CDT) Narrative Performed At This result has an attachment that is n ot available. Ordered by an unspecified provider. documented in this encounter Visit Diagnoses Diagnosis Chronic heart failure with preserved ej ection fraction (HCC) - Primary Non-ischemic cardiomyopathy (HCC) Other primary cardiomyopathies Dilated cardiomyopathy (HCC) Other primary cardiomyopathies Paroxysmal atrial fibrillation (HCC) Atrial fibrillation Stage 3 chronic kidney disease, unspeci fied whether stage 3a or 3b CKD (HCC) Severe tricuspid regurgitation Diseases of tricuspid valve documented in this encounter Orders First Ordered Date Appointment Count Last Ordered Date REQUEST FOR CARDIOLOGY APPOINTMENT 1 documented in this encounter Additional Health Concerns Assessment Noted Time A fall risk assessment has been completed for the pat ient 10/12/2020 10:26 AM CDT PHQ-2 Depression Total Score: 0 08/24/2020 7:42 AM CDT documented as of this encounter
--- OUTSIDE RECORDS SUMMARY | 2020-11-04 12:23 | XMS REPORT | Encounter Summary ---
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 [facility] On track (10/23/2020 Yes [place], 1:06 PM CDT) CHRYSTAL Singh documented as of this encounter Visit Diagnoses Not on filedocumented in this encounter Additional Health Concerns Assessment Noted Time A fall risk assessment has been completed for the pat ient 08/24/2020 7:42 AM CDT PHQ-2 Depression Total Score: 0 08/24/2020 7:42 AM CDT documented as of this encounter
--- OUTSIDE RECORDS SUMMARY | 2020-11-04 12:23 | XMS REPORT | Encounter Summary ---
Author Author [facility] Organization [facility] Address Unknown Phone Unavailable Care Team Providers Care Fixture Fabricator Repairer Name Role Phone Self, Garfield OLVERA PCP Riley Hopson MD 3 Encounter Details Care Team Description Date Type Department Taisha Botello RN 09/20/2020 Orders Only Cardiology: [facility] 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
--- OUTSIDE RECORDS SUMMARY | 2020-11-04 12:23 | XMS REPORT | Encounter Summary ---
Author Author [facility] Organization [facility] Address Unknown Phone Unavailable Care Team Providers Care Operator Helper Name Role Phone Self, Garfield OLVERA PCP Riley Hopson MD 3 Encounter Details Care Team Description Date Type Department Kathi Chen RN 10/19/2020 Prep for Case Cardiology: [facility] [address] [place] [address] Social History Date Tobacco Use Types Packs/Day Years Used Never Smoker Smokeless Tobacco: Never Used Comments Alcohol Use Standard Drinks/Week Not Currently 0 (1 standard drink = 0.6 o z pure alcohol) Sex Assigned at Date Recorded Female 06/01/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 [facility] On track (10/23/2020 Yes [place], 1:06 [...]
--- OUTSIDE RECORDS SUMMARY | 2020-11-04 12:23 | XMS REPORT | Encounter Summary ---
Author Author [facility] Organization [facility] Address Unknown Phone Unavailable Care Team Providers Care Middle School Technology Teacher Name Role Phone Self, Garfield OLVERA PCP Riley Hopson MD 3 Encounter Details Care Team Description Date Type Department Carlos Longo MD [address] [place] [address] [phone] Non-ischemic cardiomyopathy (HCC); Dilated cardiomyopathy (HCC) 10/12/2020 Orders Only Cardiology: [facility] 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 [facility] On track (10/23/2020 Yes [place], 1:06 PM CDT) CHRYSTAL Singh documented as of this encounter Procedures Comments Procedure Name Priority Date/Time Associated Diag nosis HC B-TYPE NATRIURETIC Routine 10/12/2020 Non-isch emic PEPTIDE 10:28 AM CDT cardiomyopathy (HCC ) Dilated cardiomyopathy (HCC) documented in this encounter Results * BNP (B-TYPE NATRIURETIC PEPTI) (10/12/2020 10:28 AM CDT) B Type 421.0 (H) 0 - 100 PG/ML [facility] Natriuretic Peptide Specimen Blood Performing Organization Address City/State/ZIP Code P shane Number MAIN LAB [address] [place] [address] documented in this encounter Visit Diagnoses Diagnosis Non-ischemic cardiomyopathy (HCC) Other primary cardiomyopathies Dilated cardiomyopathy (HCC) Other primary cardiomyopathies documented in this encounter Additional Health Concerns Assessment Noted Time A fall risk assessment has been completed for the pat ient 10/12/2020 10:26 AM CDT PHQ-2 Depression Total Score: 0 08/24/2020 7:42 AM CDT documented as of this encounter
--- OUTSIDE RECORDS SUMMARY | 2020-11-04 12:23 | XMS REPORT | Encounter Summary ---
Author Author [facility] Organization [facility] Address Unknown Phone Unavailable Care Team Providers Care Banquet Set Up Person Name Role Phone Self, Garfield OLVERA PCP Riley Hopson MD 3 Encounter Details Care Team Description Date Type Department Kathi Chen RN Chronic heart failure with preserved eje ction fraction (HCC) (Primary Dx); Encounter for screening laboratory testing for COVID-19 virus in asymptomatic patient 10/06/2020 Prep for Case Cardiology: [facility] [address] [place] [address] [address], [address] [place] [address] Social History Date Tobacco Use Types Packs/Day Years Used Never Smoker Smokeless Tobacco: Never Used Comments Alcohol Use Standard Drinks/Week Not Currently 0 (1 standard drink = 0.6 o z pure alcohol) Sex Assigned at Date Recorded Female 06/01/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 [facility] On track (10/23/2020 Yes [place], 1:06 PM CDT) CHRYSTAL Singh documented as of this encounter Procedures Comments Procedure Name Priority Date/Time Associated Diag nosis COVID-19 (SARS-COV-2) PCR STAT 10/16/2020 [place] [address] for screening laboratory testing for COVID-19 virus in asymptomatic patient documented in this encounter Results * COVID-19 (SARS-COV-2) PCR (10/16/2020) COVID-19 Comment: Negative [facility] (SARS-CoV-2) PCR COVID-19 [facility] (SARS-CoV-2) PCR Source Specimen Flocked Swab - Nasopharyngeal Narrative Performed At This result has an attachment that is n ot available. Performing Organization Address City/State/ZIP Code P shane Number [facility] [address] [place] [address] documented in this encounter Visit Diagnoses Diagnosis Chronic heart failure with preserved ej ection fraction (HCC) - Primary Encounter for screening laboratory test ing for COVID-19 virus in asymptomatic patient documented in this encounter Orders First Ordered Date Case Request Count Last Ordered Date CASE REQUEST VESSEL BUILDER 1 10/06/2020 documented in this encounter Additional Health Concerns Assessment Noted Time A fall risk assessment has been completed for the pat ient 09/21/2020 10:27 AM CDT PHQ-2 Depression Total Score: 0 08/24/2020 7:42 AM CDT documented as of this encounter
--- OUTSIDE RECORDS SUMMARY | 2020-11-04 12:23 | XMS REPORT | Encounter Summary ---
Author Author [facility] Organization [facility] Address Unknown Phone Unavailable Care Team Providers Care Plastic Cablemaking Machine Operator Name Role Phone Self, Garfield OLVERA PCP Riley Hopson MD 3 Reason for Visit * Treatment (Routine) Referred By Contact Referred To Contact Status Reason Specialty Diagnoses / Procedures [facility] [address] [facility] [address], [address] [facility] [place] [address] [facility] Infusion Cl [address] [place] [address] Closed Diagnoses Iron deficiency anemia due to chronic blood loss High output congestive heart failure (HCC) P rocedures FERRIC CARBOXYMALTOSE (INJECTAFER) Encounter Details Care Team Description Date Type Department Carlos Longo MD [address] [facility] [address] [place] [address] [phone] High output congestive heart failure (HC C) (Primary Dx); Iron deficiency anemia due to chronic blood loss 09/05/2020 Infusion [facility] 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 documented as of this encounter Last Filed Vital Signs Reading Time Taken Comments Vital Sign 90/59 09/05/2020 9:12 AM CDT Blood Pressure 90 09/05/2020 7:55 AM CDT Pulse 36.6 C (97.8 F) 09/05/2020 7:55 AM CDT Temperature 18 09/05/2020 7:55 AM CDT Respiratory Rate 100% 09/05/2020 7:55 AM CDT Oxygen Saturation - - Inhaled [...] as of this encounter Progress Notes * Nithya Jaramillo, CHRYSTAL - 09/05/2020 8:30 AM CDT Pt tolerated injectafer infusion. No reaction noted post 30 min obs. documented in this encounter Plan of Treatment Not on filedocumented as of this encounter Goals Goal Patient Associated Recent Progress Patient-Stat Aut hor Goal Type Problems ed? [facility] On track (10/23/2020 Yes [place], 1:06 PM CDT) CHRYSTAL Singh documented as of this encounter Visit Diagnoses Diagnosis High output congestive heart failure (H CC) - Primary Iron deficiency anemia due to chronic b lood loss Iron deficiency anemia secondary to blo od loss (chronic) documented in this encounter Administered Medications Action Date Dose Rate Site Medication Order MAR Action 09/05/2020 8:15 AM CDT 750 mg 345 mL/hr ferric carboxymaltose (INJECTAFER) 750 Given - New mg in sodium chloride 0.9% (NS) 115 mL Bag IVPB 750 mg, Intravenous, 115 mL, Administer over 20 Minutes, ONCE, 1 dose, On Fri09/05/20 at 0822 documented in this encounter Orders First Ordered Date Medications Ordered That Might Not Have Count Last Ordered Date Been Administered ferric carboxymaltose (INJECTAFER) 750 1 09/05/2020 mg in sodium chloride 0.9% (NS) 115 mL IVPB First Ordered Date Nursing Count Last Ordered Date IMPLEMENT EXTRAVASATION MANAGEMENT 1 IMPLEMENT GENERAL IV LINE FLUSH PROTOCOL 1 09/05/2020 IMPLEMENT HYPOGLYCEMIA IN THE PEDIATRIC 1 09/05/2020 PATIENT PROTOCOL IMPLEMENT HYPOGLYCEMIA MANAGEMENT OF 1 0 09/05/2020 ADULT PATIENTS PROTOCOL IMPLEMENT MEDICATION REACTION 1 09/06/19 21 ANAPHYLAXIS, AND HYPERSENSITIVITY JOSEMANUEL C documented in this encounter Additional Health Concerns Assessment Noted Time A fall risk assessment has been completed for the pat ient 08/24/2020 7:42 AM CDT PHQ-2 Depression Total Score: 0 08/24/2020 7:42 AM CDT documented as of this encounter
--- OUTSIDE RECORDS SUMMARY | 2020-11-04 12:23 | XMS REPORT | Encounter Summary ---
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 [facility] On track (10/23/2020 Yes [place], 1:06 [...]
--- OUTSIDE RECORDS SUMMARY | 2020-11-04 12:23 | XMS REPORT | Encounter Summary ---
Author Author [facility] Organization [facility] Address Unknown Phone Unavailable Care Team Providers Care Process Technician Name Role Phone Self, Garfield OLVERA PCP Riley Hopson MD 3 Reason for Referral * Consult, Test & Treat (Routine) Referred By Contact Referred To Contact Status Reason Specialty Diagnoses / Procedures Nithya Madison, [employer]-DIGESTION OPERATOR [address] [place] [address] Pending Review Procedures REQUEST FOR CARDIOLOGY APPOINTMENT Electronically signed by Nithya Madison APRN (Nikki)-DIGESTION OPERATOR at Encounter Details Care Team Description Date Type Department Christelle Robbins RN 10/06/2020 Orders Only Cardiology: [facility] [address] [place] [address] [address], [address] [place] [address] Social History Date Tobacco Use Types Packs/Day Years Used Never Smoker Smokeless Tobacco: Never Used Comments Alcohol Use Standard Drinks/Week Not Currently 0 (1 standard drink = 0.6 o z pure alcohol) Sex Assigned at Date Recorded Female 06/01/2020 1:44 PM [employer] Date Recorded COVID-19 Exposure Response 09/07/2020 1:13 [...] Patient-Stat Aut hor Goal Type Problems ed? [facility] On track (10/23/2020 Yes Sheldon, 1:06 PM CDT) CHRYSTAL Singh documented as of this encounter Visit Diagnoses Not on filedocumented in this encounter Orders First Ordered Date Appointment Count Last Ordered Date REQUEST FOR CARDIOLOGY APPOINTMENT 1 documented in this encounter Additional Health Concerns Assessment Noted Time A fall risk assessment has been completed for the pat ient 09/21/2020 10:27 AM CDT PHQ-2 Depression Total Score: 0 08/24/2020 7:42 AM CDT documented as of this encounter
--- OUTSIDE RECORDS SUMMARY | 2020-11-04 12:23 | XMS REPORT | Encounter Summary ---
Author Author [facility] Organization [facility] Address Unknown Phone Unavailable Care Team Providers Care Quarter Seamer Name Role Phone Self, Garfield OLVERA PCP Riley Hopson MD 3 Reason for Visit * Auth/Cert Referred By Contact Referred To Contact Status Reason Specialty Diagnoses / Procedures Diagnoses Chronic heart failure with preserved ejection fraction (HCC) Procedures [place] UNLISTED CARDIOVASCULAR SERVICE/PROCEDURE CATHETERIZATION RIGHT HEART WITH INSERTION PULMONARY ARTERY SENSOR Encounter Details Care Team Description Date Type Department Nadege Davis MD [address] 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 documented as of this encounter Last Filed Vital Signs Reading Time Taken Comments Vital Sign 88/55 10/20/2020 11:00 PM CDT Blood Pressure 103 10/20/2020 10:00 PM CDT Pulse 36.5 C (97.7 F) 10/20/2020 8:27 PM CDT Temperature - - Respiratory Rate 100% 10/20/2020 10:00 PM CDT Oxygen Saturation - - [...] Summary Completed By: Duyen Arroyo DO Service: [facility] Reason for hospitalization: Chronic heart failure with [...] Lovenox bridge for 7 days and to [place] k INR on 10/27. Patient is to [...] Hospital Follow Up with [facility] Cardiology: [facility] (CVM Exam) [address] [facility] [address], [address] [facility] [address] Nov 15, 2020 2:15 PM (Arrive by 2:00 PM) Procedure with [facility] Laboratory: [facility] (--) [address] [address] Nov 15, 2020 2:30 PM Return Patient with [facility] Cardiology: [facility] (CVM Exam) [address] [address] Dec 19, 2020 12:00 PM Return Patient with Allison Marti MD Transplant: Main [facility], [facility] ([facility]) [address] [facility] [address], [address] [facility] [address] Consults, Procedures, Diagnostics, Micro, Pathology Consults: Cardiology and Hepatology Surgical Procedures & Dates: None Significant Diagnostic Studies, Micro and Procedures: noted in brief hospital co urse Significant Pathology: noted in brief hospital course Nutrition: Dietitian Documentation Muscle Wasting: Yes Moderate Clavicle, Bahai Edema: No Discharge Disposition, Condition Patient Disposition: Home Condition at Discharge: Stable Code Status Code Status History Date Active Date Inactive Code Status Order ID 10/20/2020 1221 10/26/2020 1253 Full Code [id number] Vijaya Millard MD Inpatient 10/20/2020 0846 10/20/2020 1221 Full Code [id number] Crissy Gould PA-C I npatient Only showing the last 2 code statuses. Patient Instructions PROTIME INR (PT) Standing Status: Future Standing Exp. Date: 10/26/21 Which provider would you like to CC? SHRUTI NEWBERRY [[id number]] Release to patient Immediate BASIC METABOLIC PANEL Standing Status: Future Standing Exp. Date: 10/26/21 Which provider would you like to CC? SHRUTI NEWBERRY [[id number]] Release to patient Immediate Cardiac Diet Limiting [...] Readings from Last 1 Encounters: 10/12/20 : Plan: High blood pressure is the single [...] To register for smoking cessation program call [phone] or visit www.smokefree.gov Diabetes Risk Goal: Non-diabetic: [...] you can call a conchita carmona at [phone] Physical Activity Risk Goal: Patients should have approval by a physician prior to beginning an exercis e program. Plan: Try to get at least 30 minutes of moderate physical activity five days a w sitka or 20 minutes of vigorous physical activity [...] HOURS (8:00 AM - 4:30 PM): Call [phone] and asked to be transferred to your discharge attending stacey holliday. - AFTER BUSINESS HOURS (4:30 PM - 8:00 AM, on weekends, or holidays): Call [phone] and ask the wrecking crane engine operator to page the on-call doctor for the discha rge attending physician. Discharging attending physician: NADEGE DAVIS [[id number]] Procedure Specific Activity *Resume your normal activity in 2 days. Incision Care *Call if there is an increase in pain, swelling, or redness. *DO NOT soak incision in water. *NO tub baths, hot tubs, or swimming. *You may shower after discharge. Testing Not Required for Covid-19 Questions About Your Stay For questions or concerns regarding your hospital stay, call [phone]. Discharging attending physician: DUYEN ARROYO [[id number]] Appointment Request: Cardiology Heart Failure Please arrange [...] departments to conduct heart failure related po [facility] follow up: HF Specialist Only (will be scheduled outside of 7 day wi ndow, if unavailable) Expected date of discharge: 10/26/20 Ordering Provider's or Responsible Teams's Pager #? [phone] Additional Orders: Case Management, Supplies, Home Health Home Health/DME None Signed: Duyen Arroyo DO 10/26/2020 cc: Primary Care Physician: Garfield Gray Referring physicians: Nithya Madison, ATA* Additional provider(s): Did we miss something? If additional records are needed, please fax a request on office letterhead to [phone]. Please include the patient's name, date of b irth, fax number and type of information needed. Additional request can be made by email at [email or web address]. For general questions of information about electronic records sharing, call [phone]. documented in this encounter Medications at Time [...] follow up/discharge instructions, occurred wi th patient seez-ro-xynr. Duyen Arroyo DO 10/26/2020 Discharge Planning: greater [...] 60%/RV failure, severe TR, Cirrhosis, nonischemic cardiomyopathy ([facility] 05/2020 no CAD), Mechanical aortic valve implanted [...] mg po bid starting 10/26/20 (ordere d). 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 INR 1.8 on 10/24/20. 5. Recommend Cable Mechanic consultation to discuss sodium restricted diet as [...] Shruti Newberry PA-C Department of Cardiovascular Medicine [facility] Available on Voalte/AMS/Pager [phone] Assessment: Acute on Chronic diastolic HFpEF, EF: 60% NYHA class III, ACC Stage C/predomina ntly RV failure Major Complications or Comorbidities ([facility]): acute/ acute on chronic systolic and /or [...] kg (132 lb 6.4 oz) Recommendations: GDMT MODEL ENGINE MECHANIC Changes BB Lopressor 12.5 mg twice daily [...] 06/06/2020 Performed by Bao Hernández MD at [facility] ENDO COLONOSCOPY DIAGNOSTIC WITH SPECIMEN COLLECTION BY BRUSHING/ WASHING - FLEXI BLE N/A 06/06/2020 Performed by Bao Hernández MD at [facility] ENDO ANGIOGRAPHY CORONARY ARTERY WITH RIGHT AND LEFT HEART CATHETERIZATION N/A Performed by Higinio Clarke MD at [facility] ACCOUNT PROCESSOR POSSIBLE PERCUTANEOUS CORONARY STENT PLACEMENT WITH ANGIOPLASTY N/A Performed by Higinio Clarke MD at [facility] ACCOUNT PROCESSOR ESOPHAGOGASTRODUODENOSCOPY WITH SPECIMEN COLLECTION BY BRUSHING/ WASHING N/A 10/21/2020 Performed by Cosmo Gomez MD at [facility] ENDO SIGMOIDOSCOPY WITH CONTROL OF BLEEDING - FLEXIBLE N/A 10/21/2020 Performed by Cosmo Gomez MD at [facility] ENDO SIGMOIDOSCOPY WITH DIRECTED SUBMUCOSAL INJECTION - FLEXIBLE 10/21/2020 Performed by Cosmo Gomez MD at [facility] ENDO Family History Problem Relation Age [...] tablet 3 mg, 3 mg, Oral, B ID(9-) cefTRIAXone (ROCEPHIN) IVP 1 g, 1 g, [...] 500 mg by mouth daily. Past W sitka bumetanide (BUMEX) 2 mg tablet Take 2.5 [...] (98.7 F) (10/25 830) Pulse: 96 (10/25 1100) Respirations: 18 PER MINUTE (10/25 830) SpO2: [...] implantation, procedure deferred for now - Hold MODEL ENGINE MECHANIC aldactone, bumex, metolazone, metoprolol due to severe [...] hours. Duyen Arroyo, DO Internal Medicine Med [facility] L Subjective Zaria Paulson is a 60 [...] m oderate ascites and body wall edema -MODEL ENGINE MECHANIC Bumex 5 mg BID, Spironolactone 100 mg [...] seen/discussed with Dr. Ok Dominguez GI Fellow 0665 PMH: Medical History: Diagnosis Date Cancer (HCC) [...] 06/06/2020 Performed by Bao Hernández MD at [facility] ENDO COLONOSCOPY DIAGNOSTIC WITH SPECIMEN COLLECTION BY BRUSHING/ WASHING - FLEXI BLE N/A 06/06/2020 Performed by Bao Hernández MD at [facility] ENDO ANGIOGRAPHY CORONARY ARTERY WITH RIGHT AND LEFT HEART CATHETERIZATION N/A Performed by Higinio Clarke MD at [facility] ACCOUNT PROCESSOR POSSIBLE PERCUTANEOUS CORONARY STENT PLACEMENT WITH ANGIOPLASTY N/A Performed by Higinio Clarke MD at [facility] ACCOUNT PROCESSOR ESOPHAGOGASTRODUODENOSCOPY WITH SPECIMEN COLLECTION BY BRUSHING/ WASHING N/A 10/21/2020 Performed by Cosmo Gomez MD at [facility] ENDO SIGMOIDOSCOPY WITH CONTROL OF BLEEDING - FLEXIBLE N/A 10/21/2020 Performed by Cosmo Gomez MD at [facility] ENDO SIGMOIDOSCOPY WITH DIRECTED SUBMUCOSAL INJECTION - FLEXIBLE 10/21/2020 Performed by Cosmo Gomez MD at [facility] ENDO SH: Social History Socioeconomic History [...] GI b leeding, please page GI fellow semiconductor 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 Consider future EGD to evaluate for Castellanos's. [...] 60%/RV failure, severe TR, Cirrhosis, nonischemic cardiomyopathy ([facility] 05/2020 no CAD), Mechanical aortic valve implanted [...] Cr. Is improvi ng. Consider transitioned to MODEL ENGINE MECHANIC dose to bumetanide 2.5 mg p.o. twice [...] 10/24/2020. INR 1.8 on 10/24/20. 6. Recommend Cable Mechanic consultation to discuss sodium restricted diet as [...] Shruti Newberry PA-C Department of Cardiovascular Medicine [facility] Available on Voalte/AMS/Pager [phone] Assessment: Acute on Chronic diastolic HFpEF, EF: 60% NYHA class III, ACC Stage C/predomina ntly RV failure Major Complications or Comorbidities ([facility]): acute/ acute on chronic systolic and /or [...] kg (131 lb 12.8 oz) Recommendations: GDMT MODEL ENGINE MECHANIC Changes BB Lopressor 12.5 mg twice daily [...] 06/06/2020 Performed by Bao Hernández MD at [facility] ENDO COLONOSCOPY DIAGNOSTIC WITH SPECIMEN COLLECTION BY BRUSHING/ WASHING - FLEXI BLE N/A 06/06/2020 Performed by Bao Hernández MD at [facility] ENDO ANGIOGRAPHY CORONARY ARTERY WITH RIGHT AND LEFT HEART CATHETERIZATION N/A Performed by Higinio Clarke MD at [facility] ACCOUNT PROCESSOR POSSIBLE PERCUTANEOUS CORONARY STENT PLACEMENT WITH ANGIOPLASTY N/A Performed by Higinio Clarke MD at [facility] ACCOUNT PROCESSOR ESOPHAGOGASTRODUODENOSCOPY WITH SPECIMEN COLLECTION BY BRUSHING/ WASHING N/A 10/21/2020 Performed by Cosmo Gomez MD at [facility] ENDO SIGMOIDOSCOPY WITH CONTROL OF BLEEDING - FLEXIBLE N/A 10/21/2020 Performed by Cosmo Gomez MD at [facility] ENDO SIGMOIDOSCOPY WITH DIRECTED SUBMUCOSAL INJECTION - FLEXIBLE 10/21/2020 Performed by Cosmo Gomez MD at [facility] ENDO Family History Problem Relation Age [...] 500 mg by mouth daily. Past W sitka bumetanide (BUMEX) 2 mg tablet Take 2.5 [...] implantation, procedure deferred for now - Hold MODEL ENGINE MECHANIC aldactone, bumex, metolazone, metoprolol due to severe [...] 10/19 PM. - INR on admission 2.8 8/2 - S/p 1 unit of FFP due [...] Plan: 1. Will re-initiate patient on her MODEL ENGINE MECHANIC dose of 5mg. Discussed with provider an [...] therapy will no longer be managed by Pharmac joellen Lewis PHARMD 10/24/2020 * Duyen Arroyo DO [...] implantation, procedure deferred for now - Hold MODEL ENGINE MECHANIC aldactone, bumex, metolazone, metoprolol due to severe [...] problem Duyen Arroyo, DO Internal Medicine Med [facility] L Subjective Zaria Paulson is a 60 y.o. female. Patient doing well this AM. Had 2 large B Ms yesterday that had blood in them. No abd pain. Eating and drinking well. ROS: Denies chest pain and SOB. No abdominal pain. No N/V. No fever or chills. Medications Scheduled Meds:bumetanide (BUMEX) injection 2 mg, 2 mg, Intravenous, BID(12-08) cefTRIAXone (ROCEPHIN) IVP 2 g, 2 g, [...] % (10/24 835) SpO2 Pulse: 89 (10/23 0500) BP: (81-102)/(56-64) Temp: [36.3 C (97.4 F)-36.9 [...] m oderate ascites and body wall edema -MODEL ENGINE MECHANIC Bumex 5 mg BID, Spironolactone 100 mg [...] seen/discussed with Dr. Ok Dominguez GI Fellow 5984 PMH: Medical History: Diagnosis Date Cancer (HCC) [...] 06/06/2020 Performed by Bao Hernández MD at [facility] ENDO COLONOSCOPY DIAGNOSTIC WITH SPECIMEN COLLECTION BY BRUSHING/ WASHING - FLEXI BLE N/A 06/06/2020 Performed by Bao Hernández MD at [facility] ENDO ANGIOGRAPHY CORONARY ARTERY WITH RIGHT AND LEFT HEART CATHETERIZATION N/A Performed by Higinio Clarke MD at [facility] ACCOUNT PROCESSOR POSSIBLE PERCUTANEOUS CORONARY STENT PLACEMENT WITH ANGIOPLASTY N/A Performed by Higinio Clarke MD at [facility] ACCOUNT PROCESSOR SH: Social History Socioeconomic History Marital status: [...] noted. Course review. Last bloody stool on 8/1. Blood pressure low, but stable. 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 Can consider future EGD to evaluate for [...] implantation, procedure deferred for now - Hold MODEL ENGINE MECHANIC aldactone, bumex, metolazone, metoprolol due to severe [...] Internal Medicine Med Private L Subjective Zaria Paluson is a 60 y.o. female. States that [...] 96 (10/22 599) Height: 157.5 cm (62.01") (10/22 955) BP: (93-127)/(56-84) Temp: [36.1 C (97 F)-37.1 C (98.7 F)] Pulse: [93-116] Respirations: [17 PER MINUTE-33 PER MINUTE] SpO2: [91 %-100 %] Intensity Pain Scale (Self Report): 5 (10/21/20 2115) There were no vitals filed for this [...] Reviewed Duyen Arroyo DO * Claudette Walton APRN-TESTING MANAGER - 10/22/2020 7:39 AM CDT Heart [...] be severely anemic and was [facility] bleed. She has medical history significant for cirrho sis, heart failure with preserved ejection fraction (60%), nonischemic cardiomyo yolanda ([facility] 05/2020 no CAD), mechanical aortic valve implanted in 2010 on warfarin , atrial fibrillation and previously treated non-Hodgkin's lymphoma. She has se en Dr. Longo for initial consultation on 08/01/2020, was last seen in clinic on 10/12 by Nithya Madison APRN. Recommendations: Bumex 2 mg IV BID for now while receiving blood transfusions. Her PASP on echo h as increased since May to , IVC is 10-20.Will start kdur 20 meq [...] and examined with Dr.Vidic Claudette Walton, HF, TESTING MANAGER [id number] Assessment: Acute on Chronic diastolic HFpEF, EF: [...] changes have occurred. Major Complications or Comorbidities ([facility]): acute/ acute on chronic systolic and /or [...] vitals filed for this visit. Recommendations: GDMT MODEL ENGINE MECHANIC Changes BB Lopressor 12.5 mg twice daily [...] Yes Strict I/O. Standing scale daily weight. Cable Mechanic consultation to discuss sodium restricted diet recommended. [...] 06/06/2020 Performed by Bao Hernández MD at [facility] ENDO COLONOSCOPY DIAGNOSTIC WITH SPECIMEN COLLECTION BY BRUSHING/ WASHING - FLEXI BLE N/A 06/06/2020 Performed by Bao Hernández MD at [facility] ENDO ANGIOGRAPHY CORONARY ARTERY WITH RIGHT AND LEFT HEART CATHETERIZATION N/A Performed by Higinio Clarke MD at [facility] ACCOUNT PROCESSOR POSSIBLE PERCUTANEOUS CORONARY STENT PLACEMENT WITH ANGIOPLASTY N/A Performed by Higinio Clarke MD at [facility] ACCOUNT PROCESSOR Family History Problem Relation Age of Onset [...] 599) Height: 157.5 cm (5' 2.01") (10/21 0956) BP: (93-127)/(56-84) Temp: [36.1 C [...] the treatment plan as outlined by the TESTING MANAGER The Complexity of medical decision making [...] with my edits as outlined below. Staff tile trimmer: DO Jalen Jaimes Nizar T, MD - [...] Recent Labs 10/20/20 0907 10/20/20 1529 10/20/20 1712 10/20/20 1712 10/21/20 0515 10/21/20 0515 10/22/20 0312 NA 133* [...] 0950 10/21/20 1846 10/22/20 0312 10/22/20 1234 10/22/20 2059 10/22/20 2317 WBC 7.8 -- 11.0 11.7* 10.3 [...] No asterixis Significant Labs: Recent Labs 10/20/20 0910/20/20 0910/20/20 1529 10/20/20 1529 10/20/20 17110/20/20 17110/21/20 0515 [...] this interval not displayed. Recent Labs 10/20/20 0910/20/20 0910/20/20171110/20/20 2215 10/21/20 0515 10/21/20 0950 WBC 7.8 [...] implantation, procedure deferred for now - Hold MODEL ENGINE MECHANIC aldactone, bumex, metolazone, metoprolol due to severe [...] of which greater than 50% was spent [id number] with the patient in care coordination (reviewing the records, angella nieves, documentation, discussion with the nurse, binder caser and the social work , discussion with vocational rehab consultant services) and bedside counseling. Subjective Zaria [...] (PROTONIX) injection 40 mg, 40 mg, Intravenous, BID(11-21) sertraline (ZOLOFT) tablet 100 mg, 100 mg, [...] % (10/22 807) SpO2 Pulse: 100 (10/21 632) BP: (83-115)/(48-84) Temp: [36.2 C (97.2 F)-37.1 [...] 10/20/2020 6:34 PM CDT Pt transported to [facility] on bedside monitor following Rapid response. Bedside [...] ell as medication management. Javi Tillman MD, [facility] Clinical Call Center Director Internal Medicine, [facility] Pager: [phone] * Yahaira Hewitt RN - 10/20/2020 5:09 [...] 10/20/2020 10:00 AM CDT On arrival to [facility] pt mentioned she had been experiencing [...] fraction, nonischemic cardiomyopathy,s/paortic valve replacement x3 (on lunchroom supervisor shantanu anticoagulation for mechanical valve),paroxysmal atrial fibrillation, hy pertension, previous endocarditis,iron deficiency anemia (IV iron given), lunchroom supervisor shantanu kidney disease,hypothyroidism, depression, non-Hodgkins lymphoma and [...] hemorrhoids. Crissy Gould PA-C Interventional Cardiology Pager [phone] * Adriana Leblanc RN - 10/19/2020 9:14 AM CDT Cardiovascular Labs Scheduling Checklist 1. Date of procedure:10/20 2. Arrival time: 0900 3. Patient instructed NPO after MN; clear liquids until: 0800 4. Instructed to check-in at the hospital for special care registration desk and bring phot o id, insurance cards and a current list of home medications. Pack an overnight bag in the event you are admitted overnight: Y 5. If you have a history of sleep apnea and use a C-Pap or Bi-Pap machine, pleas e bring it with you to the hospital: N 6. Have a chair car driver available upon discharge as you may not be cleared to drive for 24 or 48 hours post procedure. (exception is RHC/biopsy patient with internal j ugular approach not receiving sedation): Y 7. If the patient's language preference is other than Palestinian, please indicated [place] language and need for reel stripper: N 8. Patient instructed to drink 64 [...] No need for bowel prep, will ad property adjuster enema tomorrow - Transfuse to keep Hb>7, 2 units ordered for now. Patient consented - Last iron infusion in August 2020. EGD in May 2020 essentially normal. C-scope in May 2020 with angiectasia, treated with argon plasma. Chronic HFpEF without acute exacerbation Pulmonary HTN with chronic cor pulmonale - Originally presented for CardioMEMs implantation, procedure deferred for now - Hold MODEL ENGINE MECHANIC aldactone, bumex, metolazone, metoprolol due to severe [...] - Discussed with patient. - Admit to [facility] with hepatology and heart failure consults. Total 70 minutes spent in patient care performing history and physical, clarifyi ng medical history, reviewing prior visits with patient, checking facts, reviewi ng recommendations, placing orders for admission, 35 minutes were spent in couns eling and coordination of care. An additional 40 minutes were spent reviewing records in [facility] and prior hospital izations, clinic visit notes and labs and imaging results. __ Primary Care Physician: Garfield Gray Verified Chief Complaint: Bright red blood per rectum. History of Present Illness: Zaria Paulson is a 60 y.o. female with history of liver cirrhosis, HFpEF, NICM, S/P mechanical aortic valve on coumadin, atrial f ibrillation and previously treated non-Hodgkin's lymphoma who presented to the ospital for implantation of CardioMEMs but was found to be severely anemia and i s now being admitted to the medicine for acute GI bleeding. Patient was seen an d evaluated in [facility]. She sitting up in bed appearing comfortable [...] was lightheaded when she got her up [facility] er in the day. Blood pressure [...] 06/06/2020 Performed by Bao Hernández MD at [facility] ENDO COLONOSCOPY DIAGNOSTIC WITH SPECIMEN COLLECTION BY BRUSHING/ WASHING - FLEXI BLE N/A 06/06/2020 Performed by Bao Hernández MD at [facility] ENDO ANGIOGRAPHY CORONARY ARTERY WITH RIGHT AND LEFT HEART CATHETERIZATION N/A Performed by Higinio Clarke MD at [facility] ACCOUNT PROCESSOR POSSIBLE PERCUTANEOUS CORONARY STENT PLACEMENT WITH ANGIOPLASTY N/A Performed by Higinio Clarke MD at [facility] ACCOUNT PROCESSOR Family History Problem Relation Age of Onset [...] Ref Range Units Ordered 2 Crossmatch Expires 10/23/2020,5572 Record Check 2ND TYPE REQUIRED ABO/RH(D) O POS Antibody Screen NEG Electronic Crossmatch YES Unit Number [id number] Blood Component Type RBC,ADSOL,LEUKO REDUCED,1ST CONT. Unit Division 00 Status OF Unit ISSUED ISSUE DATE TIME [id number] PRODUCT CODE [id number] BLOOD TYPE O POS CODING STATUS 5100 BLOOD EXPIRATION DATE [id number] Transfusion Status OK TO TRANSFUSE Crossmatch Result [...] below. Crissy Gould PA-C Interventional Cardiology Pager [phone] Progress Notes Nithya Madison APRN (Nikki)-TWYLA (Nurse Practitioner) Nurse Family Olivia 10/12/20 1130 Signed Date of Service: 10/12/2020 Zaria Paulson is a 60 y.o. female. She is followed by Dr. Longo HPI Her past medical history is significant for heart failure with preserved ejectio n fraction, nonischemic cardiomyopathy, s/p aortic valve replacement x3 (on lunchroom supervisor shantanu anticoagulation for mechanical valve), paroxysmal atrial fibrillation, hyp ertension, previous endocarditis, iron deficiency anemia -received IV iron, lunchroom supervisor shantanu kidney disease, hypothyroidism, depression, non-Hodgkins lymphoma [...] home and instructed to follow up with chuck shen. Her goal dry weight is 135 pounds. [...] 06/06/2020 Performed by Bao Hernández MD at [facility] ENDO COLONOSCOPY DIAGNOSTIC WITH SPECIMEN COLLECTION BY BRUSHING/ WASHING - FLEXI BLE N/A 06/06/2020 Performed by Bao Hernández MD at [facility] ENDO ANGIOGRAPHY CORONARY ARTERY WITH RIGHT AND LEFT HEART CATHETERIZATION N/A Performed by Higinio Clarke MD at [facility] ACCOUNT PROCESSOR POSSIBLE PERCUTANEOUS CORONARY STENT PLACEMENT WITH ANGIOPLASTY N/A Performed by Higinio Clarke MD at [facility] ACCOUNT PROCESSOR Family History Problem Relation Age of Onset [...] EF of 60%. -GDMT:Spironolactone 100 mg daily, Medno4le twice daily, metolazone 2.5 mg twice weekly -Today, she describes NYHA Functional ClassIII-IVsymptoms, appears hypervole angel luis by exam. Her lowest weight is 129 pounds but she was up to 144 pounds. Sh e took the additional metolazone is now down [...] the HPI, exam and medical decision making. Patien t education: I reviewed recent lab results and [...] concerns prior to the next appointment. Total [id number]. Estimated counseling [id number]. Thank you for allowing me to participate in the care of this patient. If you hav e any questions please do not hesitate to contact our office. Berna Madison, DNP, MANAGER GROUP, TESTING MANAGER-C Collaborating Physician: Dr. Ramo Lamb Urich for [facility] at [facility] Current Medications (including today's revisions) ascorbic [...] trying to finish a can o f spaghetti O's. She reports she has had low [...] synthroid, zofran, protonix; Oral Diet Order: Cardiac;Diabetic [id number] Kcal/day (60 g carb/meal, 30 g carb/ HS snack); Current Oral Intake: Marginally Adequate Estimated Calorie Needs: 1800(30kcal/kg/present wt) Estimated Protein Needs: 72-84(1.2-1.4g/kg/present wt) Malnutrition Assessment: Does not meet criteria; ; ; ; ; Nutrition Focused Physical Assessment: ; ; Muscle Wasting: Yes; Severity: Moderate; Location: Clavicle, Bahai Edema: No; ; Pressure Injury: none noted [...] Within 72 hours Brigitte Barlow, MS, RD, STITCHER SPECIAL MACHINE, LD, CCTD Office: [phone] Available on Voalte * Claudette Walton APRN-TESTING MANAGER - 10/21/2020 8:23 AM CDT Associated [...] be severely anemic and was [facility] bleed. She has medical history significant for cirrho sis, heart failure with preserved ejection fraction (60%), nonischemic cardiomyo yolanda ([facility] 05/2020 no CAD), mechanical aortic valve implanted in 2010 on warfarin , atrial fibrillation and previously treated non-Hodgkin's lymphoma. She has se gabriela Longo for initial consultation on 08/01/2020, was [...] and examined with Dr.Vidic Claudette Walton, HF, TESTING MANAGER [phone] Assessment: Acute on Chronic diastolic HFpEF, EF: 60% on last echo 05/22/2020. Repeat echo p ending today. Major Complications or Comorbidities ([facility]): acute/ acute on chronic systolic and /or [...] vitals filed for this visit. Recommendations: GDMT MODEL ENGINE MECHANIC Changes BB Lopressor 12.5 mg twice daily [...] bpm. She was start ed on amiodarone ip. Mechanical aortic valve: Initial surgery in 1975 [...] sigmoidoscopy . Pulmonary hypertension: Follows with Dr. Rosaels, she has had a right heart cath [...] Yes Strict I/O. Standing scale daily weight. Cable Mechanic consultation to discuss sodium restricted diet recommended. [...] 06/06/2020 Performed by Bao Hernández MD at [facility] ENDO COLONOSCOPY DIAGNOSTIC WITH SPECIMEN COLLECTION BY BRUSHING/ WASHING - FLEXI BLE N/A 06/06/2020 Performed by Bao Hernández MD at [facility] ENDO ANGIOGRAPHY CORONARY ARTERY WITH RIGHT AND LEFT HEART CATHETERIZATION N/A Performed by Higinio Clarke MD at [facility] ACCOUNT PROCESSOR POSSIBLE PERCUTANEOUS CORONARY STENT PLACEMENT WITH ANGIOPLASTY N/A Performed by Higinio Clarke MD at [facility] ACCOUNT PROCESSOR Family History Problem Relation Age of Onset [...] bioprosthetic and eventually mechanical aortic valve in 2011, cirrhosis who presented with severe anemia. She [...] the treatment plan as outlined by the TESTING MANAGER The Complexity of medical decision making [...] with my edits as outlined below. Staff tile trimmer: DO Jalen Jaimes Christopher, MD - 10/20/2020 [...] m oderate ascites and body wall edema -MODEL ENGINE MECHANIC Bumex 5 mg BID, Spironolactone 100 mg [...] remains stable overnight -CLD today, NPO at UT -No PO bowel prep. Will need tap water enema tomorrow morning prior to procedure -Maintain 2 large bore IVs -IV PPI BID -Octreotide bolus and gtt -Ceftriaxone for SBP prophylaxis -Hold diuretics -Hold warfarin and Lovenox Patient seen/discussed with Dr. Patricia Cool GI fellow Pager [phone] 10/20/2020 3:15 PM PMH: Medical History: Diagnosis [...] 06/06/2020 Performed by Bao Hernández MD at [facility] ENDO COLONOSCOPY DIAGNOSTIC WITH SPECIMEN COLLECTION BY BRUSHING/ WASHING - FLEXI BLE N/A 06/06/2020 Performed by Bao Hernández MD at [facility] ENDO ANGIOGRAPHY CORONARY ARTERY WITH RIGHT AND LEFT HEART CATHETERIZATION N/A Performed by Higinio Clarke MD at [facility] ACCOUNT PROCESSOR POSSIBLE PERCUTANEOUS CORONARY STENT PLACEMENT WITH ANGIOPLASTY N/A Performed by Higinio Clarke MD at [facility] ACCOUNT PROCESSOR SH: Social History Socioeconomic History Marital status: [...] PM CDT ATTESTATION I personally performed the turpni portions of the E/M visit, discussed case [...] encounter Miscellaneous Notes * Case Mgmt DC Naseem - Gavi Nobles RN - 10/26/2020 10:07 AM CDT Case Management Progress Note NAME:Zaria Paulson : AGE: 60 y.o. ADMISSION DATE: 10/20/2020 DAYS ADMITTED: LOS: 6 days Todays Date: 10/26/2020 Plan D/c home today Pt lives in [facility] with her SO of 6 years. 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 She does not drive. Pt will have transport home provided by her SO Catarino. He will be coming from [facility]. Pt was on warfarin MODEL ENGINE MECHANIC. She had her tile trimmer Riley Hopson following inrs/coum marco dosing. Pt [...] provide transport. he will be coming from [place]. Does the patient use Medicaid Transportation?: No Next Level of Care (Acute Psych discharges only) Discharge Disposition Selected Continued Care - Admitted Since 10/20/2020 No services have been selected for the patient. Gavi Nobles Integrated Nurse Head Of Strategy [facility] [phone] Pager [phone] * Care Coordination-Inpatient - Caitlin Esparza RN [...] ulcers). Hepatology Follow-ups: No changes made to MODEL ENGINE MECHANIC schedule Hepatology appt. Appointment Date/Time: 12/19/2020 @ 12pm Appointment Provider: Dr Allison Marti. Cigar Making Machine Operator Follow up: Labs Labs: CBC ordered and faxed to patient's preferred lab [facility]. Hospital is currently closed, but lab services are still available. Order fax ed to number provided by outside energy sales representatives when called to verify lab services at [facility] location. . Clinic fax number placed on order for results t o be sent back to. Fax confirmation received. Due Date: Approx 11/02/2020 Education addressed: Phoned patient prior to today's DC and introduced myself a nd the role of inpatient nurse coordinator. Reviewed above DC plan. Reviewed sig ns/symptoms of GI bleeding. If bleeding occurs she was instructed to return to [facility] ER for evaluation. She verbalized understanding. Encouraged patient/family to call the clinic with any hepatology needs after discharge. [phone]. ~Will be available if patient needs anything from a hepatology standpoint while in the hospital Friday through Friday 7am-5pm ~Discharge information to be sent to the hepatology provider & team that will follow with patient in the outpatient clinic. Rachael Esparza RN-BSN Inpatient Hepatology Nurse Coordinator Pgr: [phone] [facility] [phone] * Care Plan - Shalonda Santizo RN [...] Elizabeth Stafford RN Outcome: Goal Ongoing * Laurita Gusman - Elizabeth Stafford RN - 10/26/2020 6:37 [...] any assist is needed. Pt lives in [facility] with her SO of 6 years. 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 She does not drive. Pt will have transport home provided by her SO Catarino. He will be coming from [facility]. Pt has used HH and home infusion in the past, but could not remember the name of the companies. Pt was on warfarin MODEL ENGINE MECHANIC. She had her tile trimmer Riley Hopson following inrs/coum marco dosing. Pt reports that sometimes her HF team would follow it and adjust he r coumadin. Plan: holding warfarin today. Monitoring pt when back on warfarin and adjust as needed pending INRs. Pending d/c . Will follow. Patient Address/Phone [address] [facility] [address] (home) Emergency Contact Extended Emergency Contact Information [...] Transportation Name, Phone and Availability #1: pts SOCatarino to provide transport. he will be coming from [place]. Does the patient use Medicaid Transportation?: No [...] Source of Income Source Of Income: Other fdc income Financial Assistance Needed? no reported concerns regarding medication or medical coverage Psychosocial Needs Mental Health Mental Health History: No Substance Use History Substance Use History Screen: No Other na Current/Previous Services PCP Isaac, [place], , Pharmacy [facility] - [place], [place] - [address] [address] Durable Medical Equipment Durable Medical Equipment at [...] pt had cardiac rehab post CABG at [facility] outpt. OT: No SCALPING MACHINE OPERATOR: No Custodial Facility/Longterm SNF: No NH: No Inpatient Rehab IPR: No Long-Term Acute Care Hospital LTACH: No Acute Hospital Stay Acute Hospital Stay: In the past Was patient's stay within the last 30 days?: No Gavi Nobles Integrated Nurse Head Of Strategy [facility] [phone] Pager [phone] * Care Plan - Maggi Salamanca RN [...] Zaria Paulson Attending: Duyen Arroyo DO Service: [place] [address] Admission Date: 10/20/2020 LOS: 1 day A Code/Rapid Response Timeline Event Report has been created for this patient on 10/21/20 at 1224 EDGE SANDER called due to concerns from a HF and GI perspective due to lower BP and acti ve GIB with low hgb. 1 unit being infused. VSS at this time and pt plans to go for scope today. Discussed plans with Dr Ryan and pt stable to remain on niels or at this time. The lead provider for this event was Dr Arroyo. Joan Parrish, CHRYSTAL * Response Teams - Nevin Tellez RN - 10/20/2020 5:23 PM CDT Rapid Response Team Progress Note Date: 10/20/2020 Time: 5:23 PM Patient: Zaria Paulson Attending: Vijaya Millard MD Service: [place] [address] Admission Date: 10/20/2020 LOS: 0 days A [...] - 10/20/2020 4:38 PM CDT Assigned to [facility] as moving to 7. Vijaya Millard MD documented in this [...] Patient-Stat Aut hor Goal Type Problems ed? [facility] On track (10/23/2020 Yes [place], 1:06 PM CDT) CHRYSTAL Singh documented as [...] Routine 10/22/2020 METABOLIC PANEL 3:12 AM CDT EGD REPORT 10/21/2020 9:59 PM CDT FLEXIBLE [...] KU MAIN LAB Specimen Performing Organization Address [facility] Code P shane Number MAIN LAB [address] [place] [address] * PROTIME INR (PT) (10/26/2020 6:16 AM CDT) INR 1.4 (H) 0.8 - 1.2 MAIN LAB Specimen Blood Performing Organization Address City/[facility] P shane Number MAIN LAB [address] [place] [address] * MAGNESIUM (10/26/2020 6:16 AM CDT) Magnesium 1.9 1.6 - 2.6 mg/dL MAIN LAB Specimen Blood Performing Organization Address [facility] P shane Number MAIN LAB [address] [place] [address] * CBC (10/26/2020 6:16 AM CDT) White Blood 7.0 4.5 - 11.0 K/UL KU MAIN LAB Cells RBC 2.50 (L) 4.0 - 5.0 M/UL MAIN LAB Hemoglobin 8.2 (L) 12.0 - 15.0 GM/DL MAIN LAB Hematocrit 23.7 (L) 36 - 45 % MAIN LAB MCV 94.8 80 - 100 [...] P shane Number KU MAIN LAB [address] [place] [address] * COMPREHENSIVE METABOLIC PANEL (10/26/2020 6:16 AM [...] (L) >60 mL/min KU MAIN LAB Comment: [place] The eGFR is not validated f or use in drug dosing adjustments. Continue to use estimated creatinine clearance per dosing reference text. Please contact the Clinical Pharmacist for questions. eGFR 59 (L) >60 mL/min KU MAIN LAB [place] Comment: The eGFR is not validated for use in drug dosing adjustments. Continue to use estimated creatinine clearance per dosing reference text. Please contact the Clinical Pharmacist for questions. Specimen Blood Performing Organization Address City/[facility]/ZIP Code P shane Number KU MAIN LAB [address] [place] [address] * PTT (APTT) (10/26/2020 12:27 AM CDT) APTT 75.3 (H) 24.0 - 36.5 SEC KU MAIN LAB Specimen Blood Performing Organization Address [facility] P shane Number KU MAIN LAB [address] [place] [address] * PTT (APTT) (10/25/2020 6:00 PM CDT) APTT 30.1 24.0 - 36.5 SEC MAIN LAB Specimen Blood Performing Organization Address [facility] P shane Number KU MAIN LAB [address] [place] [address] * MAGNESIUM (10/25/2020 6:05 AM CDT) Magnesium 1.9 1.6 - 2.6 mg/dL MAIN LAB Specimen Performing Organization Address [facility] P shane Number MAIN LAB [address] [place] [address] * CBC (10/25/2020 6:05 AM CDT) White Blood 5.0 4.5 - 11.0 K/UL MAIN LAB Cells RBC 2.43 (L) 4.0 - 5.0 M/UL KU MAIN LAB Hemoglobin 7.9 (L) 12.0 - 15.0 GM/DL KU MAIN LAB Hematocrit 23.0 (L) 36 - 45 % MAIN LAB MCV 94.5 80 - 100 FL MAIN LAB MCH 32.7 26 - 34 PG MAIN LAB MCHC 34.6 32.0 - 36.0 G/DL MAIN LAB RDW 17.0 (H) 11 - 15 % MAIN LAB Platelet Count 141 (L) 150 - 400 K/UL MAIN LAB MPV 7.2 7 - 11 FL MAIN LAB Specimen Blood Performing Organization Address [facility] P shane Number MAIN LAB [address] [place] [address] * ALPHA FETO PROTEIN (AFP) (10/25/2020 6:05 AM CDT) Alpha Feto 1.4 0.0 - 15.0 NG/ML MAIN LAB Protein Specimen Blood Performing Organization Address [facility] P shane Number MAIN LAB [address] [place] [address] * COMPREHENSIVE METABOLIC PANEL (10/25/2020 6:05 AM [...] >60 >60 mL/min KU MAIN LAB Comment: [place] The eGFR is not validated f or use in drug dosing adjustments. Continue to use estimated creatinine clearance per dosing reference text. Please contact the Clinical Pharmacist for questions. eGFR >60 >60 mL/min KU MAIN LAB [place] Comment: The eGFR is not validated for use in drug dosing adjustments. Continue to use estimated creatinine clearance per dosing reference text. Please contact the Clinical Pharmacist for questions. Specimen Blood Performing Organization Address City/State/ZIP Code P shane Number KU MAIN LAB [address] [place] [address] * PROTIME INR (PT) (10/25/2020 6:05 AM CDT) INR 1.4 (H) 0.8 - 1.2 KU MAIN LAB Specimen Blood Performing Organization Address City/State/ZIP Code P shane Number KU MAIN LAB [address] [place] [address] * IRON + BINDING CAPACITY + %SAT+ FERRITIN (10/24/2020 5:47 AM CDT) Iron 32 (L) 50 - 160 MCG/DL KU MAIN LAB Iron 262 (L) 270 - 380 MCG/DL KU MAIN LAB Binding-TIBC % Saturation 12 (L) 28 - 42 % KU MAIN LAB Ferritin 130 10 - 200 NG/ML KU MAIN LAB Specimen Performing Organization Address [facility]/ZIP Code P shane Number KU MAIN LAB [address] [place] [address] * CBC (10/24/2020 5:47 AM CDT) Pathologist [facility] White Blood 4.8 4.5 - 11.0 K/UL [...] MAIN LAB Specimen Blood Performing Organization Address [facility] P shane Number KU MAIN LAB [address] [place] [address] * COMPREHENSIVE METABOLIC PANEL (10/24/2020 5:47 AM CDT) Pathologist [facility] Sodium 131 (L) 137 [...] (L) >60 mL/min KU MAIN LAB Comment: [place] The eGFR is not validated f or use in drug dosing adjustments. Continue to use estimated creatinine clearance per dosing reference text. Please contact the Clinical Pharmacist for questions. eGFR 44 (L) >60 mL/min KU MAIN LAB [place] Comment: The eGFR is not validated for use in drug dosing adjustments. Continue to use estimated creatinine clearance per dosing reference text. Please contact the Clinical Pharmacist for questions. Specimen Blood Performing Organization Address City/State/ZIP Code P shane Number KU MAIN LAB [address] [place] [address] * PROTIME INR (PT) (10/24/2020 5:47 AM CDT) INR 1.8 (H) 0.8 - 1.2 KU MAIN LAB Specimen Blood Performing Organization Address City/[facility]/ZIP Code P shane Number KU MAIN LAB [address] [place] [address] * COMPREHENSIVE METABOLIC PANEL (10/23/2020 12:35 PM [...] (L) >60 mL/min KU MAIN LAB Comment: [place] The eGFR is not validated f or use in drug dosing adjustments. Continue to use estimated creatinine clearance per dosing reference text. Please contact the Clinical Pharmacist for questions. eGFR 35 (L) >60 mL/min KU MAIN LAB [place] Comment: The eGFR is not validated for use in drug dosing adjustments. Continue to use estimated creatinine clearance per dosing reference text. Please contact the Clinical Pharmacist for questions. Specimen Blood Performing Organization Address City/[facility]/ZIP Code P shane Number KU MAIN LAB [address] [place] [address] * CBC (10/23/2020 12:35 PM CDT) White [...] MAIN LAB Specimen Blood Performing Organization Address City/[facility] Code P shane Number KU MAIN LAB [address] [place] [phone] * PROTIME INR (PT) (10/23/2020 8:37 AM CDT) INR 2.8 (H) 0.8 - 1.2 KU MAIN LAB Specimen Blood Performing Organization Address City/[facility]/ZIP Code P shane Number KU MAIN LAB [address] [place] [phone] * HEMOGLOBIN & HEMATOCRIT (10/22/2020 11:17 PM CDT) Hemoglobin 7.9 (L) 12.0 - 15.0 GM/DL KU MAIN LAB Hematocrit 22.8 (L) 36 - 45 % KU MAIN LAB Specimen Blood Performing Organization Address City/[facility]/ZIP Code P shane Number KU MAIN LAB [address] [place] [phone] * TRANSFUSE RBC'S (10/22/2020 9:53 PM CDT) Specimen Blood * TRANSFUSE RBC'S (10/22/2020 9:53 PM CDT) Specimen Blood * LACTIC ACID(LACTATE) (10/22/2020 8:59 PM CDT) Pathologist [facility] Lactic Acid 1.9 0.5 - 2.0 MMOL/L KU MAIN LAB Specimen Blood Performing Organization Address City/[facility]/ZIP [facility] P shane Number [facility] MAIN LAB [address] [place] [address] * CBC (10/22/2020 8:59 PM CDT) White [...] MAIN LAB Specimen Blood Performing Organization Address City/[facility] P shane Number KU MAIN LAB [address] [place] [address] * CBC (10/22/2020 12:34 PM CDT) White [...] MAIN LAB Specimen Blood Performing Organization Address [facility]/ZIP Code P shane Number KU MAIN LAB [address] [place] [address] * MAGNESIUM (10/22/2020 3:12 AM CDT) Magnesium 2.0 1.6 - 2.6 mg/dL KU MAIN LAB Specimen Performing Organization Address [facility] P shane Number KU MAIN LAB [address] [place] [phone] * CBC (10/22/2020 3:12 AM CDT) White [...] MAIN LAB Specimen Blood Performing Organization Address [facility] P shane Number KU MAIN LAB [address] [place] [phone] * PROTIME INR (PT) (10/22/2020 3:12 AM CDT) INR 3.1 (H) 0.8 - 1.2 KU MAIN LAB Specimen Blood Performing Organization Address [facility]/ZIP Code P shane Number KU MAIN LAB [address] [place] [phone] * COMPREHENSIVE METABOLIC PANEL (10/22/2020 3:12 AM [...] (L) >60 mL/min KU MAIN LAB Comment: [place] The eGFR is not validated f or use in drug dosing adjustments. Continue to use estimated creatinine clearance per dosing reference text. Please contact the Clinical Pharmacist for questions. eGFR 33 (L) >60 mL/min KU MAIN LAB [place] Comment: The eGFR is not validated for use in drug dosing adjustments. Continue to use estimated creatinine clearance per dosing reference text. Please contact the Clinical Pharmacist for questions. Specimen Blood Performing Organization Address City/State/ZIP Code P shane Number MAIN LAB [address] [place] [address] * EGD REPORT (10/21/2020 9:59 PM CDT) Provation Patient Name: Khurram SPARKS OTHER Report Procedure Date: 10/21/2020 9:59 RESULT S PM [facility]: [id number] Date of : 1960 Gender: Female Attending Physician: Cosmo Gomez MD Procedure: Upper GI endoscopy Indications: Hematochezia Providers: Cosmo Gomez MD (Doctor), Jesus Senior (Fellow), Sarah Sapp (Nurse), Omid Brooke Clinical Application Specialist (Clinical Application Specialist) Referring Physician: Cosmo Gomez MD Medications: Monitored [...] 6 seconds Procedure Code(s): --- Professional --- 96134, Esophagogastroduodenoscopy, flexible, transoral; diagnostic, including collection of specimen(s) by brushing or washing, when performed (separate procedure) Diagnosis Code(s): --- Professional --- K22.8, Other specified diseases of esophagus K92.1, Melena (includes Hematochezia) CPT copyright 2020 [place] [employer]. All rights reserved. The codes documented in this report are preliminary and upon bin cleaner review may be revised to meet current [...] Date: 10/21/2020 9:34 RESULT S PM CSN: [id number] Date of : 1960 Gender: Female Attending Physician: Cosmo Gomez MD Procedure: Flexible Sigmoidoscopy Indications: Hematochezia Providers: Cosmo Gomez MD (Doctor), Sarah Sapp (Nurse), Omid Brooke, Clinical Application Specialist (Clinical Application Specialist), Jesus Senior (Fellow) Referring Physician: Cosmo Gomez [...] 40 seconds Procedure Code(s): --- Professional --- 58012, Sigmoidoscopy, flexible; with control of bleeding, any method Diagnosis Code(s): --- Professional --- K55.21, Angiodysplasia of colon with hemorrhage K92.1, Melena (includes Hematochezia) CPT copyright 2020 [place] [employer]. All rights reserved. The codes documented in this report are preliminary and upon bin cleaner review may be revised to meet current compliance requirements. Attending Participation: I personally performed the entire procedure. I was present and participated during the entire procedure, including non-turpin portions. MD Cosmo Emmanuel MD 10/23/2020 3:34:56 PM The attending physician has electronically signed and finalized this document. Jesus Senior, Number of Addenda: 0 Note Initiated On: 10/21/2020 9:34 PM Specimen Performing Organization Address City/[facility]/ZIP Code P shane Number KU OTHER RESULTS * PROTIME INR (PT) (10/21/2020 6:46 PM CDT) INR 3.7 (H) 0.8 - 1.2 KU MAIN LAB Specimen Blood Performing Organization Address [facility] P shane Number KU MAIN LAB [address] [place] [address] * CBC (10/21/2020 6:46 PM CDT) White [...] RDW 17.3 (H) 11 - 15 % KU MAIN LAB Platelet Count 156 150 - 400 K/UL KU MAIN LAB MPV 7.2 7 - 11 FL KU MAIN LAB Specimen Blood Performing Organization Address [facility] P shane Number KU MAIN LAB [address] [place] [address] * TRANSFUSE RBC'S (10/21/2020 1:35 PM CDT) Specimen Blood * TRANSFUSE RBC'S (10/21/2020 1:35 PM CDT) Specimen Blood * PREPARE PLASMA (FFP) (10/21/2020 12:38 PM CDT) Units Ordered 1 MAIN LAB Unit Number [id number] KU MAIN LAB Blood Component THAWED PLASMA KU MAIN LAB Type Unit Division 00 KU MAIN LAB Status OF Unit TRANSFUSED KU MAIN LAB ISSUE DATE TIME MAIN LAB PRODUCT CODE [id number] KU MAIN LAB BLOOD TYPE O POS KU MAIN LAB CODING STATUS 5100 KU MAIN LAB BLOOD [id number] [facility] MAIN LAB EXPIRATION DATE Transfusion OK TO TRANSFUSE MAIN LAB Status Specimen Other (Specify) Performing Organization Address City/State/ZIP Code P shane Number MAIN LAB [address] [place] [address] * 2D + DOPPLER ECHO (10/21/2020 9:56 [...] = LAB AV index 0.50 OTHER OUTSIDE ([place]) LAB LVOT area 2.96 cm2 OTHER OUTSIDE [...] 18.07 OTHER OUTSIDE ratio LAB Cardiology Siemens [id number] OTHER OUTSIDE Ultrasound LAB Machine Specimen Narrative [...] significant changes have occurred. Performing Organization Address City/State/ZIP Code P sh[place] Number OTHER OUTSIDE LAB * TROPONIN-I (10/21/2020 9:50 AM CDT) Troponin-I 0.04 0.0 - 0.05 NG/ML KU MAIN LAB Specimen Blood Performing Organization Address City/[facility]/ZIP Code P shane Number KU MAIN LAB [address] [place] [address] * TROPONIN-I (10/21/2020 5:15 AM CDT) Troponin-I 0.04 0.0 - 0.05 NG/ML KU MAIN LAB Specimen Performing Organization Address [facility] P shane Number KU MAIN LAB [address] [place] [address] * CBC (10/21/2020 5:15 AM CDT) White [...] MAIN LAB Specimen Blood Performing Organization Address [facility] P shane Number KU MAIN LAB [address] [place] [address] * PROTIME INR (PT) (10/21/2020 5:15 AM CDT) INR 3.7 (H) 0.8 - 1.2 KU MAIN LAB Specimen Blood Performing Organization Address City/[facility] Code P shane Number KU MAIN LAB [address] [place] [address] * COMPREHENSIVE METABOLIC PANEL (10/21/2020 5:15 AM [...] (L) >60 mL/min KU MAIN LAB Comment: [place] The eGFR is not validated f or use in drug dosing adjustments. Continue to use estimated creatinine clearance per dosing reference text. Please contact the Clinical Pharmacist for questions. eGFR 37 (L) >60 mL/min KU MAIN LAB [place] Comment: The eGFR is not validated for use in drug dosing adjustments. Continue to use estimated creatinine clearance per dosing reference text. Please contact the Clinical Pharmacist for questions. Specimen Blood Performing Organization Address City/State/ZIP Code P shane Number [facility] [address] [place] [address] * LACTIC ACID(LACTATE) (10/21/2020 5:10 AM CDT) Pathologist [facility] Lactic Acid 1.9 0.5 - 2.0 MMOL/L KU MAIN LAB Specimen Blood Performing Organization Address City/[facility]/ZIP Code P shane Number [facility] [address] [place] [address] * TRANSFUSE RBC'S (10/20/2020 10:16 PM CDT) [...] MAIN LAB Specimen Blood Performing Organization Address [facility]/ZIP Code P shane Number KU MAIN LAB [address] [place] [address] * PHOSPHORUS (10/20/2020 5:12 PM CDT) Phosphorus 3.3 2.0 - 4.5 MG/DL KU MAIN LAB Specimen Blood Performing Organization Address [facility] Code P shane Number KU MAIN LAB [address] [place] [address] * MAGNESIUM (10/20/2020 5:12 PM CDT) Magnesium 1.8 1.6 - 2.6 mg/dL KU MAIN LAB Specimen Blood Performing Organization Address [facility] P shane Number KU MAIN LAB [address] [place] [address] * TROPONIN-I (10/20/2020 5:12 PM CDT) Troponin-I 0.04 0.0 - 0.05 NG/ML KU MAIN LAB Specimen Blood Performing Organization Address [facility] P shane Number KU MAIN LAB [address] [place] [address] * COMPREHENSIVE METABOLIC PANEL (10/20/2020 5:12 PM [...] LAB CO2 22 21 - 30 MMOL/L MAIN LAB ALT (SGPT) 11 7 - 56 U/L KU MAIN LAB Anion Gap 13 (H) 3 - 12 MAIN LAB eGFR Non 40 (L) >60 mL/min MAIN LAB Comment: [place] The eGFR is not validated f or use in drug dosing adjustments. Continue to use estimated creatinine clearance per dosing reference text. Please contact the Clinical Pharmacist for questions. eGFR 49 (L) >60 mL/min KU MAIN LAB [place] Comment: The eGFR is not validated for use in drug dosing adjustments. Continue to use estimated creatinine clearance per dosing reference text. Please contact the Clinical Pharmacist for questions. Specimen Blood Performing Organization Address City/[facility]/ZIP Code P shane Number MAIN LAB [address] [place] [address] * PTT (APTT) (10/20/2020 5:12 PM CDT) APTT 34.9 24.0 - 36.5 SEC MAIN LAB Specimen Blood Performing Organization Address City/[facility]/ZIP Code P shane Number MAIN LAB [address] [place] [address] * PROTIME INR (PT) (10/20/2020 5:12 PM CDT) INR 3.1 (H) 0.8 - 1.2 [facility] Specimen Blood Performing Organization Address City/[facility]/ZIP Code P shane Number MAIN LAB [address] [place] [address] * CBC (10/20/2020 5:12 PM CDT) White Blood 11.0 4.5 - 11.0 K/UL MAIN LAB Cells RBC 1.97 (L) 4.0 - 5.0 M/UL KU MAIN LAB Hemoglobin 6.1 (L) 12.0 - 15.0 GM/DL KU MAIN LAB Hematocrit 17.6 (L) 36 - 45 % MAIN LAB MCV 89.3 80 - 100 FL MAIN LAB MCH 31.1 26 - 34 PG KU MAIN LAB MCHC 34.9 32.0 - 36.0 G/DL KU MAIN LAB RDW 20.0 (H) 11 - 15 % KU MAIN LAB Platelet Count 197 150 - 400 K/UL KU MAIN LAB MPV 7.5 7 - 11 FL KU MAIN LAB Specimen Blood Performing Organization Address City/State/ZIP Code P shane Number [facility] MAIN LAB [address] [place] [address] * POC GLUCOSE (10/20/2020 5:11 PM CDT) Glucose, POC 152 (H) 70 - 100 MG/DL KU MAIN LAB Specimen Performing Organization Address City/[facility] P shane Number KU MAIN LAB [address] [place] [address] * TRANSFUSE RBC'S (10/20/2020 4:37 PM CDT) Specimen Blood * BASIC METABOLIC PANEL (10/20/2020 3:29 PM CDT) Pathologist [facility] Sodium 132 (L) 137 - [...] Calcium 7.7 (L) 8.5 - 10.6 MG/DL MAIN LAB eGFR Non 43 (L) >60 mL/min MAIN LAB Comment: [place] The eGFR is not validated f or use in drug dosing adjustments. Continue to use estimated creatinine clearance per dosing reference text. Please contact the Clinical Pharmacist for questions. eGFR 52 (L) >60 mL/min KU MAIN LAB [place] Comment: The eGFR is not validated for use in drug dosing adjustments. Continue to use estimated creatinine clearance per dosing reference text. Please contact the Clinical Pharmacist for questions. Specimen Blood Performing Organization Address [facility]/ZIP [facility] P shane Number MAIN LAB [address] [place] [address] * COVID-19 (SARS-COV-2) PCR (10/20/2020 12:53 PM CDT) COVID-19 FLOCKED SWAB MAIN LAB (SARS-CoV-2) NASOPHARYNGEAL PCR Source COVID-19 NOT DETECTED DN-NOT DETECTED [facility] (SARS-CoV-2) Comment: PCR This assay [...] performance characteristics have been verified by the [facility] clinical laboratory. Fact sheet for providers: https://www.fda.gov/media/1363 13/download Fact sheet for patients: https://www.fda.gov/media/1333 12/download Specimen Flocked Swab - Nasopharyngeal Performing Organization Address City/State/ZIP Code P shane Number [facility] [address] [place] [address] * BLOOD TYPE CONFIRMATION - ORDER ONLY IF REQUESTED BY LAB (10/20/2020 11:54 AM CDT) ABO/RH(D) O POS MAIN LAB Specimen Bowel Contents Performing Organization Address City/[facility]/ZIP [facility] P shane Number [facility] [address] [place] [address] * TYPE & CROSSMATCH (10/20/2020 11:33 AM CDT) Units Ordered 7 MAIN LAB Crossmatch 10/23/2020,2359 MAIN LAB Expires Record Check 2ND TYPE REQUIRED MAIN LAB ABO/RH(D) O POS MAIN LAB Antibody Screen NEG MAIN LAB Electronic YES MAIN LAB Crossmatch Unit Number [id number] MAIN LAB Blood Component RBC,ADSOL,LEUKO REDUCED,1ST KU MAIN L AB Type CONT. Unit Division 00 MAIN LAB Status OF Unit TRANSFUSED KU MAIN LAB ISSUE DATE TIME MAIN LAB PRODUCT CODE [id number] KU MAIN LAB BLOOD TYPE O POS KU MAIN LAB CODING STATUS 5100 KU MAIN LAB BLOOD [id number] KU MAIN LAB EXPIRATION DATE Transfusion OK TO TRANSFUSE KU MAIN LAB Status Crossmatch COMPATIBLE,ELECTRONIC KU MAIN LAB Result Unit Number [id number] KU MAIN LAB Blood Component RBC,ADSOL,LEUKO REDUCED KU MAIN LAB Type Unit Division 00 KU MAIN LAB Status OF Unit TRANSFUSED KU MAIN LAB ISSUE DATE TIME [id number] KU MAIN LAB PRODUCT CODE [id number] KU MAIN LAB BLOOD TYPE O POS KU MAIN LAB CODING STATUS 5100 KU MAIN LAB BLOOD [id number] KU MAIN LAB EXPIRATION DATE Transfusion OK TO TRANSFUSE KU MAIN LAB Status Crossmatch COMPATIBLE,ELECTRONIC KU MAIN LAB Result Unit Number [id number] KU MAIN LAB Blood Component RBC,ADSOL,LEUKO REDUCED KU MAIN LAB Type Unit Division 00 KU MAIN LAB Status OF Unit TRANSFUSED KU MAIN LAB ISSUE DATE TIME [id number] KU MAIN LAB PRODUCT CODE [id number] KU MAIN LAB BLOOD TYPE O POS KU MAIN LAB CODING STATUS 5100 KU MAIN LAB BLOOD [id number] K[facility] MAIN LAB EXPIRATION DATE Transfusion OK TO TRANSFUSE KU MAIN LAB Status Crossmatch COMPATIBLE,ELECTRONIC KU MAIN LAB Result Unit Number [id number] K[facility] MAIN LAB Blood Component RBC,ADSOL,LEUKO REDUCED,2ND KU MAIN L AB Type CONT. Unit Division 00 KU MAIN LAB Status OF Unit TRANSFUSED KU MAIN LAB ISSUE DATE TIME [id number] KU MAIN LAB PRODUCT CODE [id number] KU MAIN LAB BLOOD TYPE O POS KU MAIN LAB CODING STATUS 5100 KU MAIN LAB BLOOD [id number] KU MAIN LAB EXPIRATION DATE Transfusion OK TO TRANSFUSE KU MAIN LAB Status Crossmatch COMPATIBLE,ELECTRONIC KU MAIN LAB Result Unit Number [id number] K[facility] MAIN LAB Blood Component RBC,ADSOL,LEUKO REDUCED KU MAIN LAB Type Unit Division 00 KU MAIN LAB Status OF Unit TRANSFUSED KU MAIN LAB ISSUE DATE TIME KU MAIN LAB PRODUCT CODE [id number] KU MAIN LAB BLOOD TYPE O POS KU MAIN LAB CODING STATUS 5100 KU MAIN LAB BLOOD [id number] KU MAIN LAB EXPIRATION DATE Transfusion OK TO TRANSFUSE KU MAIN LAB Status Crossmatch COMPATIBLE,ELECTRONIC KU MAIN LAB Result Unit Number [id number] K[facility] MAIN LAB Blood Component RBC,ADSOL,LEUKO REDUCED KU MAIN LAB Type Unit Division 00 KU MAIN LAB Status OF Unit TRANSFUSED KU MAIN LAB ISSUE DATE TIME KU MAIN LAB PRODUCT CODE [id number] KU MAIN LAB BLOOD TYPE O POS KU MAIN LAB CODING STATUS 5100 KU MAIN LAB BLOOD [id number] K[facility] MAIN LAB EXPIRATION DATE Transfusion OK TO TRANSFUSE KU MAIN LAB Status Crossmatch COMPATIBLE,ELECTRONIC KU MAIN LAB Result Specimen Lung Performing Organization Address [facility]/ZIP Code P shane Number KU MAIN LAB [address] [place] [address] * POC PT/INR (10/20/2020 9:13 AM CDT) INR POC 2.8 (H) 0.8 - 1.2 K[facility] MAIN LAB Specimen Performing Organization Address [facility] P shane Number KU MAIN LAB [address] [place] [address] * MAGNESIUM (10/20/2020 9:07 AM CDT) Magnesium 1.8 1.6 - 2.6 mg/dL KU MAIN LAB Specimen Performing Organization Address [facility] Code P shane Number K[facility] MAIN LAB [address] [place] [address] * PROTIME INR (PT) (10/20/2020 9:07 AM CDT) INR 3.2 (H) 0.8 - 1.2 K[facility] MAIN LAB Specimen Performing Organization Address [facility] P shane Number MAIN LAB [address] [place] [address] * BLUE TOP TUBE (10/20/2020 9:07 AM CDT) Specimen Performing Organization Address [facility] P shane Number LAB RESULTS * BASIC METABOLIC PANEL (10/20/2020 [...] Calcium 8.4 (L) 8.5 - 10.6 MG/DL MAIN LAB eGFR Non 41 (L) >60 mL/min MAIN LAB Comment: [place] The eGFR is not validated f or use in drug dosing adjustments. Continue to use estimated creatinine clearance per dosing reference text. Please contact the Clinical Pharmacist for questions. eGFR 50 (L) >60 mL/min KU MAIN LAB [place] Comment: The eGFR is not validated for use in drug dosing adjustments. Continue to use estimated creatinine clearance per dosing reference text. Please contact the Clinical Pharmacist for questions. Specimen Blood Performing Organization Address City/State/ZIP Code P shane Number MAIN LAB [address] [place] [address] * CBC (10/20/2020 9:07 AM CDT) White Blood 7.8 4.5 - 11.0 K/UL KU MAIN LAB Cells RBC 1.96 (L) 4.0 - 5.0 M/UL [facility] Hemoglobin 5.9 (LL) 12.0 - 15.0 GM/DL KU MAIN LAB Comment: CRITICAL VALUE CALLED TO AND READ BACK BY/TIME/TECH CHRYSTAL DENNISON at 10/20/2020 09:46:41 by 1949 Hematocrit 17.0 (L) 36 - 45 % MAIN LAB MCV 86.9 80 - 100 FL MAIN LAB MCH 30.1 26 - 34 PG MAIN LAB MCHC 34.7 32.0 - 36.0 G/DL [facility] RDW 21.9 (H) 11 - 15 % MAIN LAB Platelet Count 200 150 - 400 K/UL MAIN LAB MPV 7.2 7 - 11 FL MAIN LAB Specimen Blood Performing Organization Address City/State/ZIP Code P shane Number KU MAIN LAB [address] [place] [address] * TELEMETRY STRIPS-SCAN (10/20/2020 12:00 AM CDT) [...] ection fraction (HCC) documented in this encounter Admitting Diagnoses Diagnosis [...] This is a HIGH ALERT Medication. 10/26/2020 7:13 AM CDT 1,101.5 Units/hr 13.8 [...] Oral, THREE TIMES DAILY, First dose on 10/22/20 at 1145, Until Discontinued, - Tablet may [...] 100 mg Given 10/21/2020 10:09 AM CDT 10/25/2020 9:01 PM CDT 5 mg [...] doses, Starting on 10/24/20 at 0905, Until Fri10/26/20 at 1248, Warfarin Indication: Prosthetic cardiac valve, INR Goal: INR 2-3, This order is for informational use only. See separate order for administration and documentation of warfarin. NOTE: This is a HIGH ALERT Medication. documented in this encounter Discontinued Medications Start Date End Date Medication Sig Discontinue Reason 10/24/2020 FERROUS GLUCONATE PO Take 37.5 mg Removed from by mouth [employer] Med List every 48 hours. 08/01/2020 10/26/2020 [...] DAILY, First Angie RN)17 58 dose on [place] 10/22/20 at 1145, Until (Given - Provider: [...] pt d/c) cefTRIAXone (ROCEPHIN) IVP 1 g 1756 (Given - 1 g, Intravenous, EVERY 24 HOURS, First Provider: Sa rashid dose (after last modification) on Trenton Adams RN) 10/24/20 at 1745, Until Discontinued, INSTR: IV PUSH -- RECONSTITUTE EACH 1 G M WITH 10 MLS of 0.9% NACL (NS) or STERIL E WATER (SW) or DEXTROSE 5% (D5W) 09 (Med Not Given - Provider: Shalonda jacques RN - Reason: Patient Refused)2102 (Med Not Given - Provider: Elizabeth Stafford RN - Reason: Patient Refused) 08 (Med Not Given - Provider: Shalonda jacques RN - Reason: Patient Refused) fluticasone propionate (FLONASE) nasal 09 (Med Not Given spray 1 spray - [...] 2.4 mL, Intravenous, SEE ADMIN INSTRUCTIONS, Starting Fri10/25/20 at 1740, Until Fri10/26/20 at 1248, ADJUSTMENT BOLUS (from vial) for hepari n drip -- Weight-Based Heparin Algorithm - Follow heparin infusion scale - WITH ADJUSTMENT BOLUS (see heparin infusion order administration instructions) for subsequent bolus and rate changes. - Administer adjustment bolus from vial. NOTE: This is a HIGH ALERT Medication. 1845 (Given - Provider: Shalonda Santizo RN ) [...] New Bag - Provider: Shalonda Santizo RN) 0812 (Given - New Bag - Provider: Shalonda [...] 10/23/20 at 2100, Until Discontinued, Do CHRYSTAL [place]) not crush or chew tablet. 09 (Given - Provider: Shalonda Santizo RN )141 (Given - Provider: Shalonda Santizo RN)2100 (Given - Provider: Elizabeth Stafford RN) 811 (Given - Provider: Shalonda Santizo RN ) potassium chloride SR (K-DUR) tablet 20 837 (Given - mEq Provider: Nupur 20 mEq, [...] with meal or full glass of water 927 (Given - Provider: Shalonda Santizo RN ) 810 (Given - Provider: Shalonda Santizo RN ) [...] Until Toya 10/26/20 at 1248, Pain non-opioid: may be used [...] HOURS PRN, Starting Fri10/24/20 at 1134, Until Toya 10/26/20 at 1248, Other..., IV iron infusion-related urticaria, [...] mg, Sublingual, EVERY 5 MIN PRN, Starting Fri10/20/20 at 0846, Until Toya 10/26/20 at 1248, Chest Pain, Not to exceed 3 doses per incident of chest pain. Notify physician if chest pain persists after 3 doses. 0957 (Given - Provider: Shalonda Santizo RN ) ondansetron (ZOFRAN) injection 4 mg 0838 [...] to manage PER PHARMACY, 999 doses, Starting Fri10/24/20 at 0905, Until Toya 10/26/20 at 1248, [...] (dbl conc) heparin (porcine) BOLUS for continuous 10/25/2020 inf (vial) 1,200-2,400 Units heparin (porcine) injection 4,210 Units 1 10/25/2020 cefTRIAXone (ROCEPHIN) IVP 1 g 1 021 10/21/2020 diphenhydrAMINE (BENADRYL) injection 25 2 10/24/2020 mg EPINEPHrine PF (ADRENALIN) injection 0.3 1 10/24/2020 mg ferrous sulfate (FEOSOL) tablet 325 mg 10/24/2020 iron sucrose (VENOFER) 300 mg in sodium 1 10/24/2020 chloride 0.9% (NS) IVPB warfarin (COUMADIN) tablet 5 mg 2020 warfarin, pharmacy to manage pantoprazole DR (PROTONIX) tablet 40 mg 1 10/23/2020 bumetanide (BUMEX) injection 2 mg 03/2020 melatonin tablet 3 mg 1 10/22/2020 metoprolol tartrate tablet 12.5 mg 1 03/2020 potassium chloride SR (K-DUR) tablet 20 1 10/22/2020 mEq 10/20/2020 potassium chloride SR (K-DUR) tablet 60 2 10/22/2020 mEq EPINEPHrine syringe 1 10/21/2020 fentaNYL citrate PF (SUBLIMAZE) 1 2020 injection 25 mcg fentaNYL citrate PF (SUBLIMAZE) 2 2020 injection 50 mcg metoclopramide (REGLAN) injection 10 mg 1 10/21/2020 promethazine (PHENERGAN) injection 6.25 1 10/21/2020 mg sterile water/simethicone irrigation 1 0 10/21/2020 acetaminophen (TYLENOL) tablet 650 mg 1 10/20/2020 [...]
--- OUTSIDE RECORDS SUMMARY | 2020-11-04 12:23 | XMS REPORT | Encounter Summary ---
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 [employer] Name Role Phone Self, Garfield OLVERA PCP Riley Hopson MD 3 Reason for Visit * Reason Onset Date Comments Erroneous 10/11/2020 encounter-disregard Encounter Details Care Team Description Date Type Department Kathi Chen RN Erroneous encounter-disregard 10/11/2020 Telephone Cardiology: [facility] [address] [place] [address] [address], [address] [place] [address] Social History Date Tobacco Use Types Packs/Day Years Used Never Smoker Smokeless Tobacco: Never Used Comments Alcohol Use Standard Drinks/Week Not Currently 0 (1 standard drink = 0.6 o z pure alcohol) Sex Assigned at Date Recorded Female 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 [facility] On track (10/23/2020 Yes [place], 1:06 [...]
[2020-11-04] MEDS ORDERED: ONDANSETRON 4 MG/2 ML (SDV) Z0FRAN IV PRN (12:30)
[2020-11-04] MEDS ORDERED: fentaNYL INJ 100 MCG/2 ML AMP IVP ONE ×2 (12:30→15:45)
[2020-11-04 12:36] LABS: BASOPHILS % (AUTO) 1 % (0-10); EOSINOPHILS % (AUTO) 2 % (0-10); HEMATOCRIT 25 % (35-52); HEMOGLOBIN 8.1 G/DL (11.5-16.0); LYMPHOCYTES % (AUTO) 7 % (12-44); MEAN CORPUSCULAR HEMOGLOBIN 32 PG (25-34); MEAN CORPUSCULAR HGB CONC 32 G/DL (32-36); MEAN CORPUSCULAR VOLUME 99 FL (80-99); MEAN PLATELET VOLUME 9.3 FL (7.4-10.4); MONOCYTES % (AUTO) 7 % (0-12); NEUTROPHILS % (AUTO) 83 % (42-75); PLATELET COUNT 314 10^3/uL (130-400); WHITE BLOOD COUNT 8.5 10^3/uL (4.3-11.0)
[2020-11-04 12:37] LABS: BASOPHILS # (AUTO) 0.1 10^3/uL (0.0-0.1); EOSINOPHILS # (AUTO) 0.2 10^3/uL (0.0-0.3); LYMPHOCYTES # (AUTO) 0.6 X 10^3 (1.0-4.0); MONOCYTES # (AUTO) 0.6 X 10^3 (0.0-1.0)
[2020-11-04 12:45] LABS: INR 2.1 (0.8-1.4); PROTHROMBIN TIME PATIENT 23.9 SEC (12.2-14.7)
[2020-11-04 12:49] LABS: BACTERIA,URINE TRACE /HPF; BILIRUBIN,URINE NEGATIVE (NEGATIVE); CLARITY,URINE CLEAR; COLOR,URINE YELLOW; GLUCOSE, URINE (UA) NEGATIVE (NEGATIVE); HYALINE CASTS, URINE 0-2 /LPF; KETONES,URINE NEGATIVE (NEGATIVE); LEUKOCYTE ESTERASE ,URINE NEGATIVE (NEGATIVE); NITRITE,URINE NEGATIVE (NEGATIVE); PROTEIN,URINE NEGATIVE (NEGATIVE)
[2020-11-04 12:50] LABS: ALBUMIN 3.2 GM/DL (3.2-4.5); BILIRUBIN,TOTAL 0.7 MG/DL (0.1-1.0); CALCIUM 8.5 MG/DL (8.5-10.1); CREATININE SERUM 1.04 MG/DL (0.60-1.30); POTASSIUM 3.8 MMOL/L (3.6-5.0); TOTAL PROTEIN 5.9 GM/DL (6.4-8.2)
[2020-11-04 13:00] LABS: EOSINOPHILS % (MANUAL) 2 %; LYMPHOCYTES % (MANUAL) 3 %; MONOCYTES % (MANUAL) 4 %; NEUTROPHILS % (MANUAL) 91 %
[2020-11-04] MEDS ORDERED: NS 100 ML (IVPB) BAG IV ONE (13:00)
[2020-11-04] MEDS ORDERED: IOHEXOL 350 MG/ML 100 ML (OMNIPAQUE 350) VIAL IV ONE (13:00)
[2020-11-04] MEDS ORDERED: CATHETER FLUSH 10 ML SYR IV PRN (13:00)
[2020-11-04] MEDS ORDERED: HOLD METFORMIN - RECEIVED CONTRAST 20 ML VIAL IV SCH (13:00)
--- NOTE | 2020-11-04 13:07 | ED Abdominal Pain ---
General Chief Complaint: Abdominal/GI Problems Stated Complaint: LLQ PAIN Nursing Triage Note: PT REPORTS LLQ PAIN FOR 2 DAYS. SHE WAS VOMITING SOME MUCUS THEN THE PAIN STOPPED. THIS AM SHE HAD A BOWEL MOVEMENT AND THE PAIN STOPPED AFTER THAT WELL. THE PAIN WAX AND WAINS. WS ADMITTELAST WEEK FOR A GI BLEED. Source of Information: Patient, EMS History of Present Illness Date Seen by Provider: Nov 04, 2020 Time Seen by Provider: 12:20 Initial Comments 60-year-old female with past medical history of CAPELLAN cirrhosis, aortic valve replacement on warfarin, prior history of non-Hodgkin's lymphoma coming in via EMS from home due to left lower quadrant pain. She states the pain has been ongoing for the past 2 days, is progressing, severe, and sharp right in the area. It does not radiate anywhere. She had a small amount of mucus vomit this morning which helped with the pain. She had a normal bowel movement this morning that she states was nonbloody and was not black. Says she has never had pain like this before. She does state that she has a little bit more ascites today than she did a couple days ago, but she states she has never required any type of paracentesis because her Bumex works enough for that. She says this is not the most fluid she is ever had. Denies any fever, chills, chest pain, shortness of breath, diarrhea, dysuria, weakness, numbness, trauma, confusion, or any other concerns. She states she is taking all her medications as prescribed. Of note, she also states she was just discharged from [facility] this week due to a GI bleed which they did intervene on. She said she received over 5 units of blood at that time. She says she is having no symptoms related to this at this time, and they have since adjusted her warfarin dose. Allergies and Home Medications Allergies Coded Allergies: No Known Drug Allergies (Unverified , 09/09/20) Patient Home Medication List Home Medication List Reviewed: Yes Review of Systems Review of Systems Constitutional: No chills, No fever EENTM: No Blurred Vision Respiratory: Denies Cough, Denies Shortness of Air Cardiovascular: Denies Chest Pain Gastrointestinal: Abdomen Distended, Abdominal Pain; Denies Diarrhea; Nausea, Vomiting Genitourinary: Denies Flank Pain Musculoskeletal: No back pain Skin: No rash Psychiatric/Neurological: Denies Anxiety, Denies Depressed Endocrine: No Symptoms Reported Hematologic/Lymphatic: Easy Bruising All Other Systems Reviewed Negative Unless Noted: Yes Past Pimpznl-Lfekct-Acysxs Hx Patient Social History Tobacco Use?: No Use of E-Cig and/or Vaping dev: No Substance use?: No Alcohol Use?: No Pt feels they are or have been: No Seasonal Allergies Seasonal Allergies: No Past Medical History Surgery/Hospitalization HX: TITANIUM VALVE Surgeries: Yes (Lymphnode removal) Abdominal, Cardiac, Hysterectomy, Open Heart Surgery, Valve Replacement Respiratory: No Cardiac: Yes Coronary Artery Disease, Valvular Heart Disease Neurological: No ANALYSIS CONSULTANT History: Hysterectomy Genitourinary: No Gastrointestinal: Yes Liver Disease/Jaundice Musculoskeletal: No Endocrine: No HEENT: No Cancer: Yes (Non-Hodgkins lymphoma) Lymphoma Did You Recieve Any Treatments: Yes What Type of Treatment Did You: Chemotherapy Psychosocial: No Depression Integumentary: No Blood Disorders: Yes (Anemia) Physical Exam Vital Signs Vital Signs - First Documented 11/04/20 12:36 Temp 36.5 Pulse 99 Resp 18 B/P (MAP) 105/54 (71) Pulse Ox 99 O2 Delivery Room Air Capillary Refill : Less Than 3 Seconds Height/Weight/BMI Height: '" Weight: lbs. oz. kg; 22.00 BMI Method: General Appearance: WD/WN, no apparent distress HEENT: PERRL/EOMI, normal ENT inspection, pharynx normal Neck: non-tender, full range of motion, supple, normal inspection Respiratory: chest non-tender, lungs clear, normal breath sounds, no respi ratory distress, no accessory muscle use Cardiovascular: regular rate, rhythm, systolic murmur Gastrointestinal: normal bowel sounds, soft; No guarding, No rebound; tenderness (Left lower quadrant) Extremities: normal range of motion, non-tender, normal inspection, no calf tenderness, normal capillary refill, pedal edema Back: normal inspection, no CVA tenderness Neurologic/Psychiatric: no motor/sensory deficits, alert, normal mood/affect, oriented x 3, other (No asterixis) Skin: normal color, warm/dry, other (bruising to L flank) Lymphatic: no adenopathy Focused Exam Lactate Level 11/04/20 12:30: Lactic Acid Level 1.00 Lactic Acid Level Laboratory Tests Test 11/04/20 12:30 Lactic Acid Level 1.00 MMOL/L (0.50-2.00) Progress/Results/Core Measures Results/Orders Lab Results Laboratory Tests Test 11/04/20 12:22 11/04/20 12:30 11/04/20 12:37 Range/Units White Blood Count 8.5 4.3-11.0 10^3/uL Red Blood Count 2.55 L 4.35-5.85 10^6/uL Hemoglobin 8.1 L 11.5-16.0 G/DL Hematocrit 25 L 35-52 % Mean Corpuscular Volume 99 80-99 FL Mean Corpuscular Hemoglobin 32 25-34 PG Mean Corpuscular Hemoglobin Concent 32 32-36 G/DL Red Cell Distribution Width 18.6 H 10.0-14.5 % Platelet Count 314 130-400 10^3/uL Mean Platelet Volume 9.3 7.4-10.4 FL Immature Granulocyte % (Auto) 1 % Neutrophils (%) (Auto) 83 H 42-75 % Lymphocytes (%) (Auto) 7 L 12-44 % Monocytes (%) (Auto) 7 0-12 % Eosinophils (%) (Auto) 2 0-10 % Basophils (%) (Auto) 1 0-10 % Neutrophils # (Auto) 7.0 1.8-7.8 X 10^3 Lymphocytes # (Auto) 0.6 L 1.0-4.0 X 10^3 Monocytes # (Auto) 0.6 0.0-1.0 X 10^3 Eosinophils # (Auto) 0.2 0.0-0.3 10^3/uL Basophils # (Auto) 0.1 0.0-0.1 10^3/uL Immature Granulocyte # (Auto) 0.0 0.0-0.1 10^3/uL Neutrophils % (Manual) 91 % Lymphocytes % (Manual) 3 % Monocytes % (Manual) 4 % Eosinophils % (Manual) 2 % Prothrombin Time 23.9 H 12.2-14.7 SEC INR Comment 2.1 H 0.8-1.4 Activated Partial Thromboplast Time 48 H 24-35 SEC Sodium Level 133 L 135-145 MMOL/L Potassium Level 3.8 3.6-5.0 MMOL/L Chloride Level 97 L 98-107 MMOL/L Carbon Dioxide Level 26 21-32 MMOL/L Anion Gap 10 5-14 MMOL/L Blood Urea Nitrogen 14 7-18 MG/DL Creatinine 1.04 0.60-1.30 MG/DL Estimat Glomerular Filtration Rate 54 BUN/Creatinine Ratio 13 Glucose Level 96 70-105 MG/DL Calcium Level 8.5 8.5-10.1 MG/DL Corrected Calcium 9.1 8.5-10.1 MG/DL Total Bilirubin 0.7 0.1-1.0 MG/DL Aspartate Amino Transf (AST/SGOT) 45 H 5-34 U/L Alanine Aminotransferase (ALT/SGPT) 16 0-55 U/L Alkaline Phosphatase 84 40-136 U/L Pro-B-Type Natriuretic Peptide 1346.0 H <75.0 PG/ML Total Protein 5.9 L 6.4-8.2 GM/DL Albumin 3.2 3.2-4.5 GM/DL Lipase 32 8-78 U/L Lactic Acid Level 1.00 0.50-2.00 MMOL/L Urine Color YELLOW Urine Clarity CLEAR Urine pH 6.0 5-9 Urine Specific Chappell 1.010 L 1.016-1.022 Urine Protein NEGATIVE NEGATIVE Urine Glucose (UA) NEGATIVE NEGATIVE Urine Ketones NEGATIVE NEGATIVE Urine Nitrite NEGATIVE NEGATIVE Urine Bilirubin NEGATIVE NEGATIVE Urine Urobilinogen 0.2 < = 1.0 MG/DL Urine Leukocyte Esterase NEGATIVE NEGATIVE Urine RBC (Auto) TRACE-I NEGATIVE Urine RBC 2-5 H /HPF Urine WBC NONE /HPF Urine Squamous Epithelial Cells 5-10 /HPF Urine Crystals NONE /LPF Urine Bacteria TRACE /HPF Urine Casts PRESENT /LPF Urine Hyaline Casts 0-2 H /LPF Urine Mucus NEGATIVE /LPF Urine Culture Indicated NO My Orders Orders - KORY CONNELL MD Cbc With Automated Diff (11/04/20 12:30) Comprehensive Metabolic Panel (11/04/20 12:30) Blood Culture (11/04/20 12:30) Protime With Inr (11/04/20 12:30) Partial Thromboplastin Time (11/04/20 12:30) Ed Iv/Invasive Line Start (11/04/20 12:30) Ondansetron Injection (Zofran Injectio (11/04/20 12:30) Lactic Acid Analyzer (11/04/20 12:30) Ua Culture If Indicated (11/04/20 12:30) Ct Abdomen/Pelvis W (11/04/20 12:30) Fentanyl Inj (Sublimaze Injection) (11/04/20 12:30) Lipase (11/04/20 12:30) Manual Differential (11/04/20 12:22) Iohexol Injection (Omnipaque 350 Mg/Ml 1 (11/04/20 13:00) Received Contrast (Hold Metformin- Contr (11/04/20 13:00) Sodium Chloride Flush (Catheter Flush Sy (11/04/20 13:00) Ns (Ivpb) (Sodium Chloride 0.9% Ivpb Bag (11/04/20 13:00) Probnp Fs (11/04/20 13:35) Fentanyl Inj (Sublimaze Injection) (11/04/20 15:45) Fentanyl Inj (Sublimaze Injection) (11/04/20 15:36) Medications Given in ED Current Medications Medications Dose Ordered Sig/Simone Route Start Time Stop Time Status Last Admin Dose Admin Fentanyl Citrate 50 mcg ONCE ONCE IVP 11/04/20 12:30 11/04/20 12:34 DC 11/04/20 12:42 50 MCG Fentanyl Citrate 50 mcg ONCE ONCE IVP 11/04/20 15:45 11/04/20 15:46 11/04/20 15:39 50 MCG Iohexol 100 ml ONCE ONCE IV 11/04/20 13:00 11/04/20 13:01 DC 11/04/20 13:19 100 ML Ondansetron HCl 4 mg PRN PRN IV 11/04/20 12:30 11/04/20 12:42 DC 11/04/20 12:42 4 MG Sodium Chloride 10 ml NEEDED PRN IV 11/04/20 13:00 11/04/20 13:19 10 ML Sodium Chloride 100 ml ONCE ONCE IV 11/04/20 13:00 11/04/20 13:01 DC 11/04/20 13:19 100 ML Vital Signs/I&O 11/04/20 12:36 Temp 36.5 Pulse 99 Resp 18 B/P (MAP) 105/54 (71) Pulse Ox 99 O2 Delivery Room Air Blood Pressure Mean: 71 Progress Progress Note : Progress Note 60-year-old female with above history coming in due to left lower quadrant abdominal pain that has been going on for the past couple days and now worsening. ABCs were intact and vitals were stable on presentation although she is mildly tachycardic. Her blood pressure was 100's/50's consistently with a MAP always between 66-71. On exam she did have ascites, but notably she was not tender over her entire abdomen and it was more related to her left sided abdominal wall and flank. She does have bruising on the left side as well. Given her anticoagulation I am concerned for a bleed. Differential also includes SBP versus less likely diverticulitis versus some other etiology. An IV was placed and she was given repeat doses of fentanyl for pain control with frequent reassessment as well as zofran for nausea. Labs significant for hemoglobin of 8.1 which is near where she was last time when she was here, creatinine around 1, and INR of 2.1. CT imaging ordered and concerning for hematoma within the abdominal musculature on the left tracking down and towards her flank with signs of active extravasation.. I personally discussed the case with the radiologist generation engineer. At that time I called where she recently was admitted and where all of her specialist are. I received a call back at 2:[address] Meza will be the accepting physician and that they are working on a bed. 3:17PM we received a call that she has been assigned a bed. We contact EMS for transport at that time. I reassessed her prior to EMS arrival and HR and BP remained the same. Diagnostic Imaging Diagonstic Imaging: CT Plain Films/CT/US/NM/MRI: abdomen, pelvis Comments [facility]. [place], [place] NAME: DANIELLE RODGERS [facility] REC#: [id number] PT STATUS: REG ER : 1960 PHYSICIAN: KORY CONNELL MD ADMIT DATE: 11/04/20/ER FS Draft Date of Exam:11/04/20 CT ABDOMEN/PELVIS W EXAMINATION: CT abdomen and pelvis with intravenous contrast. TECHNIQUE: Multiple contiguous axial images were obtained through the abdomen and pelvis after the uneventful administration of intravenous contrast. All CT scans use one or more of the following dose optimizing techniques: automated exposure control, MA and/or KvP adjustment based on patient size and exam type or iterative reconstruction. HISTORY: Left lower quadrant pain. COMPARISON: None available. FINDINGS: Lung bases: Bilateral pleural effusions with adjacent atelectasis. There is enlargement of the right atrium with significant reflux of contrast into the IVC and hepatic veins suggestive of right heart failure. Solid organs: Nodular morphology of the liver. The gallbladder is normal. There is no biliary ductal dilation. Pancreas is normal. Spleen is mildly enlarged measuring up to 14.4 cm. Adrenal glands are normal. The kidneys are normal without hydronephrosis. Bowel: The stomach and small bowel are normal without obstruction. The colon is unremarkable. No findings of acute appendicitis. Peritoneum: There is moderate abdominal and pelvic ascites. No suspicious lymphadenopathy. Vasculature: Normal without aneurysm. Musculoskeletal: There are bilateral L5 pars defects. There is heterogeneous enlargement of the left rectus abdominis muscle. This extends into the retroperitoneum with heterogeneous layering hyperdense fluid. Total area involved measures approximately 16.4 cm x 9.2 x 9.0 cm. This extends from the level of the umbilicus to the pubic symphysis. There is a small focus of enhancement within the upper left rectus abdominis muscle suggesting active extravasation. There are other foci of active extravasation seen within the inferior pelvic aspect of the complex fluid collection (series 3 image 82, 80, 57). Pelvis: The uterus is surgically absent. No adnexal mass. The urinary bladder is normal. IMPRESSION: 1. Complex enlargement and fluid collection within the left rectus abdominal muscle extending into the retroperitoneum and left pelvic musculature. There are multiple foci suggestive of active extravasation. 2. Findings suggestive of cirrhosis with sequela of portal hypertension including mild splenomegaly and moderate ascites. 3. Small right pleural effusion. These findings were communicated to the Emergency Room physician Dr. Connell by Dr. Joe Rivas at 1:35 p.m. on 11/04/2020. Dictated on workstation # [id number] Dict: 11/04/20 1325 Trans: 11/04/20 1357 [facility] [id number] Interpreted by: MAX RIVAS DO Electronically signed by: Critical Care Note Critical Care Start Time: 13:30 Stop Time: 14:15 Progress A total of 45 minutes of critical care time was utilized while caring for this patient. She has significant bleeding with active extravasation into her abdominal wall cavity while on anticoagulation. She is also tachycardic and at high risk for hemodynamic instability. I frequently reassessed her abdominal exam as well as her vitals while in the room. I also spent time talking with the radiologist and outside facility facilitating her transfer for higher level of care. Departure Impression Primary Impression: Abdominal wall hematoma Qualified Codes: S30.1XXA - Contusion of abdominal wall, initial encounter Additional Impressions: Anticoagulated Mechanical heart valve present Disposition: 02 XFER SHT-TRM HOSP Condition: Stable Transfer Transfer Reason: Exceeds level of care Time Spoke to Accepting Phy: 14:20 Transfer Progress Notes Called transfer center for higher level of care as well as continuity of care, Dr. Meza is accepting physician. Bed assigned at 3:17 PM and at that time is when we contacted EMS for transport. Transfer Time: 15:44 Transfer Facility: [facility] Method of Transfer: EMS Departure-Patient Inst. Referrals: DULCE MARIA PEREYRA MD (PCP/Family) Primary Care Physician KORY CONNELL MD Nov 04, 2020 13:07
--- NOTE | 2020-11-04 13:58 | Diagnostic Imaging Report ---
EXAMINATION: CT abdomen and pelvis with intravenous contrast. TECHNIQUE: Multiple contiguous axial images were obtained through the abdomen and pelvis after the uneventful administration of intravenous contrast. All CT scans use one or more of the following dose optimizing techniques: automated exposure control, MA and/or KvP adjustment based on patient size and exam type or iterative reconstruction. HISTORY: Left lower quadrant pain. COMPARISON: None available. FINDINGS: Lung bases: Bilateral pleural effusions with adjacent atelectasis. There is enlargement of the right atrium with significant reflux of contrast into the IVC and hepatic veins suggestive of right heart failure. Solid organs: Nodular morphology of the liver. The gallbladder is normal. There is no biliary ductal dilation. Pancreas is normal. Spleen is mildly enlarged measuring up to 14.4 cm. Adrenal glands are normal. The kidneys are normal without hydronephrosis. Bowel: The stomach and small bowel are normal without obstruction. The colon is unremarkable. No findings of acute appendicitis. Peritoneum: There is moderate abdominal and pelvic ascites. No suspicious lymphadenopathy. Vasculature: Normal without aneurysm. Musculoskeletal: There are bilateral L5 pars defects. There is heterogeneous enlargement of the left rectus abdominis muscle. This extends into the retroperitoneum with heterogeneous layering hyperdense fluid. Total area involved measures approximately 16.4 cm x 9.2 x 9.0 cm. This extends from the level of the umbilicus to the pubic symphysis. There is a small focus of enhancement within the upper left rectus abdominis muscle suggesting active extravasation. There are other foci of active extravasation seen within the inferior pelvic aspect of the complex fluid collection (series 3 image 82, 80, 57). Pelvis: The uterus is surgically absent. No adnexal mass. The urinary bladder is normal. IMPRESSION: 1. Complex enlargement and fluid collection within the left rectus abdominal muscle extending into the retroperitoneum and left pelvic musculature. There are multiple foci suggestive of active extravasation. 2. Findings suggestive of cirrhosis with sequela of portal hypertension including mild splenomegaly and moderate ascites. 3. Small right pleural effusion. These findings were communicated to the Emergency Room physician Dr. Delvalle by Dr. Joe Chase at 1:35 p.m. on 11/04/2020. Dictated by: Dictated on workstation # [id number]
[2020-11-04] MEDS ORDERED: fentaNYL INJ 100 MCG/2 ML AMP ONE (15:36)
[2020-11-04 15:42] VITALS: BP 102/54
== END 2020-11-04 15:45 | disposition short-term general hospital (02) ==
LOC: EDUNIT# 12:16 → ER FS 12:17
DX: S30.1XXA Contusion of abdominal wall, initial encounter (principal); Z95.2 Presence of prosthetic heart valve; Z79.01 Long term (current) use of anticoagulants
CPT/HCPCS: 36415; 74177; 80053; 81000; 83605; 83690; 83880; 85007; 85027; 85610; 85730; 87040; 96374; 96375; 96376

== ENCOUNTER → 2020-11-17 | Outpatient (CLI) | payer MEDICARE, MEDICAID ==
[2020-11-17 10:23] LABS: CLARITY,URINE CLOUDY; COLOR,URINE RED; GLUCOSE, URINE (UA) NEGATIVE (NEGATIVE); PH,URINE 6.5 (5-9); PROTEIN,URINE 3+ (NEGATIVE)
[2020-11-17 10:24] LABS: BILIRUBIN,URINE 2+ (NEGATIVE); KETONES,URINE TRACE (NEGATIVE); LEUKOCYTE ESTERASE ,URINE 3+ (NEGATIVE); NITRITE,URINE POSITIVE (NEGATIVE); RBC,URINE TNTC /HPF
[2020-11-17 10:25] LABS: BACTERIA,URINE MODERATE /HPF; RENAL EPITHELIAL CELLS,URINE 0-2 /HPF; SQUAMOUS EPITHELIAL CELL,UR 0-2 /HPF; WBC,URINE 50-100 /HPF
== END ==
LOC: IHC 09:59
PROVIDERS: ATTEND Family Medicine
DX: R82.90 Unspecified abnormal findings in urine (principal)
CPT/HCPCS: 81000; 87077; 87088

== ENCOUNTER → 2020-11-23 | Outpatient (CLI) | payer MEDICARE, MEDICAID ==
[2020-11-23 11:25] LABS: INR 2.3 (0.8-1.4); PROTHROMBIN TIME PATIENT 25.3 SEC (12.2-14.7)
== END ==
LOC: IHC 10:35
PROVIDERS: ATTEND Family Medicine
DX: Z79.01 Long term (current) use of anticoagulants (principal)
CPT/HCPCS: 85610

== ENCOUNTER → 2020-11-24 | Outpatient (CLI) | payer MEDICARE, MEDICAID ==
[2020-11-24 12:05] LABS: INR 1.9 (0.8-1.4)
== END ==
LOC: IHC 11:13
PROVIDERS: ATTEND Family Medicine
DX: Z79.01 Long term (current) use of anticoagulants (principal)
CPT/HCPCS: 85610

== ENCOUNTER → 2020-11-25 | Outpatient (CLI) | payer MEDICARE, MEDICAID ==
[2020-11-25 11:29] LABS: INR 1.9 (0.8-1.4); PROTHROMBIN TIME PATIENT 22.4 SEC (12.2-14.7)
== END ==
LOC: IHC 10:42
PROVIDERS: ATTEND Family Medicine
DX: I50.82 Biventricular heart failure (principal); I38 Endocarditis, valve unspecified; I48.0 Paroxysmal atrial fibrillation; I07.1 Rheumatic tricuspid insufficiency; Z95.4 Presence of other heart-valve replacement; Z79.01 Long term (current) use of anticoagulants
CPT/HCPCS: 85610

== ENCOUNTER → 2020-11-26 | Outpatient (CLI) | payer MEDICARE, MEDICAID ==
[2020-11-26 10:45] LABS: PROTHROMBIN TIME PATIENT 22.7 SEC (12.2-14.7)
== END ==
LOC: LAB FS 10:03
PROVIDERS: ATTEND Family Medicine
DX: I38 Endocarditis, valve unspecified (principal); I48.0 Paroxysmal atrial fibrillation; I07.1 Rheumatic tricuspid insufficiency; Z95.4 Presence of other heart-valve replacement; Z79.01 Long term (current) use of anticoagulants
CPT/HCPCS: 36415; 85610

== ENCOUNTER → 2020-11-27 | Outpatient (CLI) | payer MEDICARE, MEDICAID ==
[2020-11-27 10:43] LABS: INR 2.3 (0.8-1.4); PROTHROMBIN TIME PATIENT 25.8 SEC (12.2-14.7)
== END ==
LOC: IHC 09:33
PROVIDERS: ATTEND Family Medicine
DX: Z79.01 Long term (current) use of anticoagulants (principal)
CPT/HCPCS: 85610

== ENCOUNTER → 2020-11-28 | Outpatient (CLI) | payer MEDICARE, MEDICAID ==
[2020-11-28 11:26] LABS: INR 2.9 (0.8-1.4); PROTHROMBIN TIME PATIENT 30.1 SEC (12.2-14.7)
== END ==
LOC: IHC 10:20
PROVIDERS: ATTEND Family Medicine
DX: Z51.81 Encounter for therapeutic drug level monitoring (principal); Z79.01 Long term (current) use of anticoagulants
CPT/HCPCS: 85610

== ENCOUNTER → 2020-12-06 | Outpatient (CLI) | payer MEDICARE, MEDICAID ==
[2020-12-06 10:58] LABS: INR 1.7 (0.8-1.4); PROTHROMBIN TIME PATIENT 19.8 SEC (12.2-14.7)
== END ==
LOC: IHC 10:00
PROVIDERS: ATTEND Family Medicine
DX: Z02.89 Encounter for other administrative examinations (principal); Z79.01 Long term (current) use of anticoagulants
CPT/HCPCS: 85610

== ENCOUNTER → 2020-12-08 | Outpatient (CLI) | payer MEDICARE, MEDICAID ==
[2020-12-08 15:23] LABS: PROTHROMBIN TIME PATIENT 23.1 SEC (12.2-14.7)
== END ==
LOC: IHC 15:02
PROVIDERS: ATTEND Family Medicine
DX: Z79.01 Long term (current) use of anticoagulants (principal)
CPT/HCPCS: 85610

== ENCOUNTER → 2020-12-11 | Outpatient (CLI) | payer MEDICARE, MEDICAID ==
[~2020-12-11] MED LIST: CEPH500T PO
== END ==
LOC: IHC 12:33
PROVIDERS: ATTEND Family Medicine
DX: I13.0 Hypertensive heart and chronic kidney disease with heart failure and stage 1 through stage 4 chronic kidney disease, or unspecified chronic kidney disease (principal); N18.9 Chronic kidney disease, unspecified
CPT/HCPCS: 80162

== ENCOUNTER 2020-12-13 11:54 | Emergency (ER) | payer MEDICARE, MEDICAID ==
[~2020-12-13] VITALS: Ht 167 cm; Wt 85.0 kg
--- NOTE | 2020-12-13 12:02 | ED General ---
General Stated Complaint: FALL; HEAD INJ Source of Information: Patient History of Present Illness Date Seen by Provider: Dec 13, 2020 Time Seen by Provider: 11:50 Initial Comments Patient is a 60-year-old female with history of chronic atrial fibrillation, chronic liver failure, liver cirrhosis who is currently anticoagulated on Coumadin who presents with head injury after falling from bed 3 hours prior to ED arrival. Patient states she rolled out of bed to her pain medication and head on the floor. She is unable to stand or walk and was found on the floor by her . She reports mild headache. She denies loss of consciousness feeling dizzy or dazed. She denies posterior neck pain. No nausea or vomiting. She reports generalized weakness with inability to stand and get out of bed which. Is new today. She denies fever chills, nausea vomiting or sweats. She reports chronic abdominal pain attributed to her ascites. She has not short of breath. Denies chest pain palpitations. No urinary frequency urgency or dysuria no fever chills or sweats no other acute symptoms or complaint. Arrival is by EMS Timing/Duration: 1-3 Hours Severity: Moderate Modifying Factors: improves with Other Associated Systoms: Other Allergies and Home Medications Allergies Coded Allergies: No Known Drug Allergies (Unverified , 09/09/20) Patient Home Medication List Home Medication List Reviewed: Yes Review of Systems Review of Systems Constitutional: see HPI EENTM: see HPI Respiratory: see HPI Cardiovascular: see HPI Genitourinary: see HPI Musculoskeletal: see HPI Skin: see HPI Psychiatric/Neurological: See HPI Hematologic/Lymphatic: See HPI Immunological/Allergic: see HPI All Other Systems Reviewed Negative Unless Noted: Yes Past Fmoavyx-Xbfjus-Avsclf Hx Patient Social History Tobacco Use?: Yes Seasonal Allergies Seasonal Allergies: No Past Medical History Surgery/Hospitalization HX: TITANIUM VALVE Surgeries: Yes (Lymphnode removal) Abdominal, Cardiac, Hysterectomy, Open Heart Surgery, Valve Replacement Respiratory: No Cardiac: Yes Coronary Artery Disease, Valvular Heart Disease Neurological: No DOWNSTAIRS MAID History: Hysterectomy Genitourinary: No Gastrointestinal: Yes Liver Disease/Jaundice Musculoskeletal: No Endocrine: No HEENT: No Cancer: Yes (Non-Hodgkins lymphoma) Lymphoma Did You Recieve Any Treatments: Yes What Type of Treatment Did You: Chemotherapy Psychosocial: No Depression Integumentary: No Blood Disorders: Yes (Anemia) Physical Exam Vital Signs Vital Signs - First Documented 12/13/20 11:55 Temp 36.5 Pulse 107 Resp 16 B/P (MAP) 107/58 (74) Pulse Ox 98 O2 Delivery Room Air Capillary Refill : Height, Weight, BMI Height: '" Weight: lbs. oz. 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/Affect, 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 Norm as Tested Skin: Normal Color Focused Exam Sepsis Stage: Ruled Out Possible Source: Other Lactate Level 12/13/20 13:02: Lactic Acid Level 1.65 Time of Focused Exam: 13:30 Respiratory: Lungs Clear Cardiovascular: Regular Rate, Rhythm Capillary Refill: Less Than 3 Seconds Skin: normal color Lactic Acid Level Laboratory Tests Test 12/13/20 13:02 Lactic Acid Level 1.65 MMOL/L (0.50-2.00) Within 3hrs of presentation: Admin ABX Progress/Results/Core Measures Suspected Sepsis SIRS Temperature: Pulse: Respiratory Rate: Laboratory Tests 12/13/20 12:09: White Blood Count 24.4H Blood Pressure / Mean: 12/13/20 13:02: Lactic Acid Level 1.65 Laboratory Tests 12/13/20 12:09: Creatinine 1.07, INR Comment 3.1H, Platelet Count 460H, Total Bilirubin 0.9 Results/Orders Lab Results Laboratory Tests Test 12/13/20 12:09 12/13/20 12:30 12/13/20 13:02 12/13/20 16:02 Range/Units White Blood Count 24.4 H 4.3-11.0 10^3/uL Red Blood Count 3.34 L 3.80-5.11 10^6/uL Hemoglobin 9.7 L 11.5-16.0 g/dL Hematocrit 30 L 35-52 % Mean Corpuscular Volume 90 80-99 fL Mean Corpuscular Hemoglobin 29 25-34 pg Mean Corpuscular Hemoglobin Concent 32 32-36 g/dL Red Cell Distribution Width 18.1 H 10.0-14.5 % Platelet Count 460 H 130-400 10^3/uL Mean Platelet Volume 8.7 L 9.0-12.2 fL Immature Granulocyte % (Auto) 1 % Neutrophils (%) (Auto) 95 H 42-75 % Lymphocytes (%) (Auto) 1 L 12-44 % Monocytes (%) (Auto) 3 0-12 % Eosinophils (%) (Auto) 0 0-10 % Basophils (%) (Auto) 0 0-10 % Neutrophils # (Auto) 23.0 H 1.8-7.8 X 10^3 Lymphocytes # (Auto) 0.3 L 1.0-4.0 X 10^3 Monocytes # (Auto) 0.7 0.0-1.0 X 10^3 Eosinophils # (Auto) 0.0 0.0-0.3 10^3/uL Basophils # (Auto) 0.1 0.0-0.1 10^3/uL Immature Granulocyte # (Auto) 0.3 H 0.0-0.1 10^3/uL Neutrophils % (Manual) 92 % Lymphocytes % (Manual) 1 % Monocytes % (Manual) 3 % Eosinophils % (Manual) 0 % Basophils % (Manual) 0 % Metamyelocytes % 1 % Band Neutrophils 3 % Hypochromasia MODERATE Poikilocytosis SLIGHT Prothrombin Time 31.9 H 12.2-14.7 SEC INR Comment 3.1 H 0.8-1.4 Sodium Level 130 L 135-145 MMOL/L Potassium Level 4.1 3.6-5.0 MMOL/L Chloride Level 93 L 98-107 MMOL/L Carbon Dioxide Level 25 21-32 MMOL/L Anion Gap 12 5-14 MMOL/L Blood Urea Nitrogen 20 H 7-18 MG/DL Creatinine 1.07 0.60-1.30 MG/DL Estimat Glomerular Filtration Rate 53 BUN/Creatinine Ratio 19 Glucose Level 83 70-105 MG/DL Calcium Level 8.8 8.5-10.1 MG/DL Corrected Calcium 9.4 8.5-10.1 MG/DL Total Bilirubin 0.9 0.1-1.0 MG/DL Aspartate Amino Transf (AST/SGOT) 49 H 5-34 U/L Alanine Aminotransferase (ALT/SGPT) 31 0-55 U/L Alkaline Phosphatase 177 H 40-136 U/L Troponin I < 0.30 <0.30 NG/ML C-Reactive Protein High Sensitivity 19.00 H 0.00-0.50 MG/DL Pro-B-Type Natriuretic Peptide 7250.0 H <75.0 PG/ML Total Protein 7.2 6.4-8.2 GM/DL Albumin 3.2 3.2-4.5 GM/DL Digoxin Level < 0.30 L 0.80-2.00 NG/ML Serum Alcohol < 10 <10 MG/DL Ammonia 42 H 11-32 UMOL/L Lactic Acid Level 1.65 0.50-2.00 MMOL/L Urine Color YELLOW Urine Clarity SL CLOUDY Urine pH 7.0 5-9 Urine Specific [place] <=1.005 1.016-1.022 Urine Protein NEGATIVE NEGATIVE Urine Glucose (UA) NEGATIVE NEGATIVE Urine Ketones NEGATIVE NEGATIVE Urine Nitrite NEGATIVE NEGATIVE Urine Bilirubin NEGATIVE NEGATIVE Urine Urobilinogen 0.2 < = 1.0 MG/DL Urine Leukocyte Esterase 1+ H NEGATIVE Urine RBC (Auto) TRACE-I NEGATIVE Urine RBC NONE /HPF Urine WBC 5-10 H /HPF Urine Squamous Epithelial Cells 0-2 /HPF Urine Crystals NONE /LPF Urine Bacteria MODERATE H /HPF Urine Casts NONE /LPF Urine Mucus NEGATIVE /LPF Urine Culture Indicated YES Urine Opiates Screen POSITIVE H NEGATIVE Urine Oxycodone Screen NEGATIVE NEGATIVE Urine Methadone Screen NEGATIVE NEGATIVE Urine Propoxyphene Screen NEGATIVE NEGATIVE Urine Barbiturates Screen NEGATIVE NEGATIVE Ur Tricyclic Antidepressants Screen NEGATIVE NEGATIVE Urine Phencyclidine Screen NEGATIVE NEGATIVE Urine Amphetamines Screen NEGATIVE NEGATIVE Urine Methamphetamines Screen NEGATIVE NEGATIVE Urine Benzodiazepines Screen NEGATIVE NEGATIVE Urine Cocaine Screen NEGATIVE NEGATIVE Urine Cannabinoids Screen NEGATIVE NEGATIVE My Orders Orders - WADE JOHNSON DO Cbc With Automated Diff (12/13/20 12:00) Comprehensive Metabolic Panel (12/13/20 12:00) Protime With Inr (12/13/20 12:00) Ct Head Wo (12/13/20 12:00) Probnp Fs (12/13/20 12:00) Troponin I Fs (12/13/20 12:00) Chest 1 View Ap/Pa Only (12/13/20 12:00) Ekg-Prn For Chest Pain Or Rhyt (12/13/20 12:00) Urinalysis (12/13/20 12:00) Digoxin (12/13/20 12:09) Alcohol (12/13/20 12:09) Drug Screen Stat (Urine) (12/13/20 12:09) Manual Differential (12/13/20 12:09) Ammonia (12/13/20 12:29) Lactic Acid Analyzer (12/13/20 12:44) Blood Culture (12/13/20 12:44) Blood Culture (12/13/20 13:08) Ct Chest/Abdomen/Pelvis W (12/13/20 14:05) Ceftriaxone (Rocephin) (12/13/20 14:15) Hs C Reactive Protein (12/13/20 12:09) Iohexol Injection (Omnipaque 350 Mg/Ml 1 (12/13/20 15:00) Received Contrast (Hold Metformin- Contr (12/13/20 15:00) Sodium Chloride Flush (Catheter Flush Sy (12/13/20 15:00) Ns (Ivpb) (Sodium Chloride 0.9% Ivpb Bag (12/13/20 15:00) Urine Culture (12/13/20 16:02) Medications Given in ED Current Medications Medications Dose Ordered Sig/Simone Route Start Time Stop Time Status Last Admin Dose Admin Ceftriaxone Sodium 1000 mg/ Sterile Water 10 ml @ 200 mls/hr ONCE ONCE IV 12/13/20 14:15 12/13/20 14:17 DC 12/13/20 14:17 200 MLS/HR Iohexol 100 ml ONCE ONCE IV 12/13/20 15:00 12/13/20 15:01 DC 12/13/20 15:10 100 ML Sodium Chloride 10 ml NEEDED PRN IV 12/13/20 15:00 12/13/20 15:10 10 ML Sodium Chloride 100 ml ONCE ONCE IV 12/13/20 15:00 12/13/20 15:01 DC 12/13/20 15:10 100 ML Vital Signs/I&O 12/13/20 11:55 Temp 36.5 Pulse 107 Resp 16 B/P (MAP) 107/58 (74) Pulse Ox 98 O2 Delivery Room Air Capillary Refill : Departure Communication (Admissions) CT head: No acute intracranial disease Chest x-ray: No lobar infiltrate CT chest/abdomen/pelvis: Large rectus hematoma. Ascites, no acute disease per radiology report. Patient with fall from bed height. Small right frontal forehead hematoma. INR is 3.1. No intracranial hemorrhage. Mental status intact. Patient alert more energetic throughout ED stay. Suspect polypharmacy contributing to symptoms. Of note, patient with leukocytosis of 24,000 with normal lactic acid and stable vital signs. Suspect possible stress reaction. Patient does have a UTI thought to be incidental. IV Rocephin given, will continue on Keflex. Patient will be discharged home with watchful waiting instructions with close PCP follow-up. Return precautions reviewed. Patient verbalizes understanding agreement discharge instructions prior to departure. Impression Primary Impression: Forehead contusion Additional Impressions: Leukocytosis Urinary tract infection Ascites Disposition: HOME, SELF-CARE Condition: Stable Departure-Patient Inst. Decision time for Depature: 16:56 Referrals: DULCE MARIA PEREYRA MD (PCP/Family) Primary Care Physician Patient Instructions: Minor Head Injury (DC), Urinary Tract Infection, Adult ED, Fluid in the Belly (Ascites) Add. Discharge Instructions: You were evaluated in the emergency department for fall with head injury on Coumadin. CT scan was performed which does not show evidence of intracranial bleeding. Lab work was performed and INR was 3.1. Please hold your next Coumadin dose. Urinary tract infection was also noted to be present. Please increase fluids and take next dose of antibiotics tomorrow. Follow-up with your PCP on Friday for reevaluation and to recheck INR. In the meantime if you develop new or worsening symptoms, return to the emergency department. Scripts Cephalexin (Cephalexin) 500 Mg Tablet 500 MG PO TID, #21 TAB Prov: WADE JOHNSON DO 12/13/20 WADE JOHNSON DO Dec 13, 2020 12:02
--- OUTSIDE RECORDS SUMMARY | 2020-12-13 12:02 | XMS REPORT | Encounter Summary ---
Author Author [facility] Organization [facility] Address Unknown Phone Unavailable Care Team Providers Care Salvage [employer] Name Role Phone Self, Garfield OLVERA PCP Riley Hopson MD 3 Reason for Visit * Reason Onset Date Comments Follow Up 12/12/2020 Patient INR Goal Encounter Details Care Team Description Date Type Department Helen Waggoner RN Follow Up (Patient INR Goal 12/12/2020) 12/12/2020 Telephone Cardiology: [facility] [address] [place] [address] [address], [address] [place] [address] Social History Date Tobacco Use Types Packs/Day Years Used Never Smoker Smokeless Tobacco: Never Used Comments Alcohol Use Standard Drinks/Week Not Currently 0 (1 standard drink = 0.6 o z pure alcohol) Sex Assigned at Date Recorded Female 06/01/2020 1:44 PM 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 documented as of this encounter Functional Status Date of Assessment Functional Status Response 12/12/2020 Does the patient have a hearing impairment: No 12/12/2020 Does the patient have a visual impairment: Yes 12/12/2020 Does the patient have impaired ambulation: Yes 12/12/2020 Does the patient have an activity of daily living No (ADL) impairment: 12/12/2020 Does the patient have an instrumental activity of No daily living (IADL) impairment: Date of Assessment Cognitive Status Response 12/12/2020 Does the patient have a cognitive impairment: No documented as of this encounter Miscellaneous Notes * Telephone Encounter - Helen Waggoner RN - 12/12/2020 9:52 AM CDT Patient was admitted to 11/29/20 from clinic by Basilia Gaitan APRN for IV di uretic therapy. Patient discharged on 12/04/2020. 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 Lyla dowell. Her discharge summary note from above hospitalization states the following: "Mechanical aortic valve -Implanted 2010 - [id number] daily" - INR4.1on admission > ContinueWarfarin with lower goal 2.0-2.5 given recent GI bleed (not usual 2.5-3.5 for mechnical valve). 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 Paroxysmal atrial fibrillation - Went into AF with RVR during 10/20-10/26 admission, given metoprolol and amiod arone likely 2/2 active GIB - Was not discharged on anti-arrhythmic therapy > BB discontinued given severe RV failure > Digoxin started 11/30 for HR control and RV support, 125 mcg every other day. Next level ~ 12/14. Anemia; stable Resolved:L flank/hip hematoma andLeft rectus abdominal hematoma - 11/04/20 CT a/p: complex enlargement and fluid collection within the left rect us abdominal muscle extending into the retroperitoneum and left pelvic musculatu re suggestive of active extravasation - 11/05/2020: Patient had episode of hematuria with drop in hemoglobin to 6.5. Became hypotensive following blood transfusion, repeat hemoglobin of 4.5, IR sammi led, patient taken for embolization of inferior epigastric artery on 11/06/2020 - CT a/p 11/08/20 -stable slight improvement of left hemipelvis rectus hematoma, small to moderate simple abdominal and pelvic ascites, cirrhosis, small right pl eural effusion, mild body wall edema, no mention of retroperitoneal hemorrhage - Hgb8.7 on admission and stable from 11/21 - INR4.1 on admission - Iron deficiency present on labs on admission - Patient denies hematemesis, melena, hematochezia, worsening hematoma. > S/p Iron infusion Cirrhosis Hx of colonic AVMs - Follows with Dr. Marti - Patient reports no history of esophageal varices > Paracentesis 12/02, 6.3L removed. " documented in this encounter Plan of Treatment Not on filedocumented as of this encounter Goals Goal Patient Associated Recent Progress Patient-Stat Aut hor Goal Type Problems ed? [facility] On track (10/23/2020 Yes Sheldon, 1:06 PM CDT) CHRYSTAL Singh documented as of this encounter Visit Diagnoses Not on filedocumented in this encounter Additional Health Concerns Assessment Noted Time A fall risk assessment has been completed for the pat ient 12/12/2020 2:28 PM CDT PHQ-2 Depression Total Score: 2 12/07/2020 3:18 PM CDT documented as of this encounter
--- OUTSIDE RECORDS SUMMARY | 2020-12-13 12:02 | XMS REPORT | Clinical Summary ---
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 If you d o not see the information that you expected, contact Release of Information in [facility] [employer] Information Management department at [phone] for further assistan ce in locating additional records.[facility] Allergies No Known Active Allergies Medications End Date Status Medication Sig Dispensed Refills Start Date Active potassium chloride SR Take 20 mEq [...] 1250 mg tablet by mouth daily. Active hyoscyamine (ANASPAZ) Place one 180 tablet 0 10/23 0.125 mg rapid dissolve tablet under 1 tablet tongue every 4 hours as needed. Active oxybutynin chloride Take one 180 tablet 0 (DITROPAN) 5 mg tablet tablet by 1 mouth three times daily. Active pantoprazole DR Take 40 mg by 0 (PROTONIX) 40 mg tablet mouth twice daily. Active mupirocin (BACTROBAN) 2 % Apply 1 g 0 topical ointment topically to affected area three times daily. Active acetaminophen (TYLENOL Take 500 mg 0 EXTRA STRENGTH) 500 mg by mouth tablet every 4 hours as needed for Pain. Max of 4,000 mg of acetaminophen in 24 hours. Active bumetanide (BUMEX) 1 mg Take five 360 tablet 1 tabletIndications: Acute tablets by 1 on chronic heart failure mouth twice with preserved ejection daily. fraction (HCC), Aortic valve prosthesis present Active sertraline (ZOLOFT) 100 Take one 180 tablet 0 mg tablet tablet by 1 mouth twice daily. Active warfarin (COUMADIN) 1 mg Take two 120 tablet 0 0 tablet tablets by 1 mouth daily. Active digoxin (LANOXIN) 125 mcg Take 62.5 mcg 90 tablet 3 (0.125 mg) tablet (1/2 tab) 1 alternating with 125 mcg (1 tab) daily Active spironolactone Take one 180 tablet 1 (ALDACTONE) 100 mg tablet by 1 tabletIndications: Acute mouth twice on chronic heart failure daily. Take with preserved ejection with food. fraction (HCC), Aortic valve prosthesis present 12/04/2020 Discontinued (Reorder) sertraline (ZOLOFT) 100 Take 100 mg 0 mg tablet by mouth daily. 11/15/2020 Discontinued ondansetron (ZOFRAN) 4 mg Take 4 mg by 0 tablet mouth every 8 hours as needed for Nausea or Vomiting. 11/15/2020 Discontinued metOLazone (ZAROXOLYN) Take one 40 tablet 1 2.5 mg tabletIndications: tablet by 1 Chronic heart failure mouth twice with preserved ejection weekly. Take fraction (HCC) on Friday and Friday. When directed, take 30-60 minutes prior to your Bumex. 11/15/2020 Discontinued (Reorder) bumetanide (BUMEX) 1 mg Take three 180 tablet 0 tablet tablets by 1 mouth twice daily. 11/15/2020 Discontinued warfarin (COUMADIN) 5 mg Take one 90 tablet 0 0 tablet tablet by 1 mouth daily. Take as directed by physician managing INR. 11/15/2020 Discontinued enoxaparin (LOVENOX) 60 Inject 0.6 mL 14 each 0 mg syringe under the 1 skin every 12 hours. 12/01/2020 Discontinued (Removed from P TA Med List) omeprazole DR ([facility]) Take 40 mg by 0 40 mg capsule mouth twice daily. 11/21/2020 Discontinued bumetanide (BUMEX) 1 mg Take two 120 tablet 1 tablet tablets by 1 mouth twice daily. 11/15/2020 Discontinued (Reorder) warfarin (COUMADIN) 1 mg Take one 120 tablet 0 0 tablet tablet by 1 mouth daily. Take four tablets by mouth daily to equal 4 mg dose daily. 12/04/2020 Discontinued (Reorder) warfarin (COUMADIN) 1 mg Take four 120 tablet 0 0 tablet tablets by 1 mouth daily to equal 4mg dose. 11/30/2020 Discontinued (Removed from P TA Med List) cefdinir (OMNICEF) 300 mg Take 1 0 10/23 capsuleIndications: Acute capsule by 1 on chronic heart failure mouth twice with preserved ejection daily. fraction (HCC), Aortic valve prosthesis present 12/04/2020 Discontinued (Reorder) spironolactone Take one 30 tablet 11 (ALDACTONE) 25 mg tablet by 1 tabletIndications: Acute mouth daily. on chronic heart failure Take with with preserved ejection food. fraction (HCC), Aortic valve prosthesis present 11/24/2020 Discontinued bumetanide (BUMEX) 1 mg Take three 120 tablet 1 tabletIndications: Acute tablets by 1 on chronic heart failure mouth twice with preserved ejection daily. fraction (HCC), Aortic valve prosthesis present 12/04/2020 Discontinued warfarin (COUMADIN) 4 mg Take one 90 tablet 1 0 tablet tablet by 1 mouth daily. 12/04/2020 Discontinued (Reorder) bumetanide (BUMEX) 1 mg Take four 120 tablet 1 tabletIndications: Acute tablets by 1 on chronic heart failure mouth twice with preserved ejection daily. fraction (HCC), Aortic valve prosthesis present 12/04/2020 Discontinued sertraline (ZOLOFT) 25 mg Take 25 mg by 0 tablet mouth daily. 12/12/2020 Discontinued spironolactone Take one 90 tablet 1 (ALDACTONE) 100 mg tablet by 1 tabletIndications: Acute mouth daily. on chronic heart failure Take with with preserved ejection food. fraction (HCC), Aortic valve prosthesis present 12/04/2020 Discontinued (Reorder) warfarin (COUMADIN) 1 mg Take two 120 tablet 0 0 tablet tablets by 1 mouth daily. Take four tablets by mouth daily to equal 4mg dose. 12/04/2020 Discontinued digoxin (LANOXIN) 125 mcg Take one 90 tablet 0 (0.125 mg) tablet tablet by 1 mouth every 48 hours. 12/12/2020 Discontinued digoxin (LANOXIN) 125 mcg Take one 90 tablet 0 (0.125 mg) tablet tablet by 1 mouth every 48 hours. Status Hospital, Clinic, or Ordered Dose Route Frequency Start End Date Other Facility Date Administered Medication Ended potassium chloride SR 40 mEq PO ONCE 11/22/19 0 (K-DUR) tablet 40 21 1 mEqIndications: Acute on chronic heart failure with preserved ejection fraction (HCC), Aortic valve prosthesis present Ended bumetanide (0-40 kg) IVP 2 mg IV ONCE 11/22/19 2 mg 21 1 Discontinued bumetanide (BUMEX) 2 mg IV ONCE 11/22/190 injection 2 mg 21 1 Ended bumetanide (BUMEX) 2 mg IV ONCE 11/24/1910/24 injection 2 mg 21 1 Active Problems Problem Noted Date Acute on chronic diastolic (congestive) heart failure 12/10/2020 Acute on chronic right heart failure 11/30/2020 Hyponatremia 11/30/2020 Acute on chronic heart failure 11/29/2020 Hematoma of left flank 11/15/2020 Hematoma of right flank 11/15/2020 Hematuria 11/15/2020 Vaginal bleeding 11/15/2020 Nontraumatic rectus hematoma 11/04/2020 Hypoalbuminemia 10/23/2020 LEONORA (acute kidney injury) 10/21/2020 GI bleeding 10/20/2020 Cirrhosis 09/07/2020 Non-ischemic cardiomyopathy 09/07/2020 Paroxysmal atrial fibrillation 09/07/2020 Stage 3b chronic kidney disease 09/07/2020 Atrial tachycardia 09/07/2020 Iron deficiency anemia 08/03/2020 High output congestive heart failure 08/01/2020 Hypotension, unspecified 07/10/2020 Chronic heart failure with preserved ejection fractio n 06/07/2020 Anemia 06/07/2020 Severe tricuspid regurgitation 06/07/2020 Hx of mechanical aortic valve replacement 06/07/2020 Chronic anticoagulation 06/07/2020 Overview: Formatting of this note might be differ ent from the original. warfarin History of endocarditis 06/07/2020 Resolved Problems Problem Noted Date Resolved Date Transfusion reaction 11/06/2020 11/15/2020 Overview: Formatting of this note might be differ ent from the original. Underlying Disease Transfusion Reaction NAME:Zaria Paulson :1960 AGE: 60 y.o. ADMISSION DATE: 11/04/2020 D AYS ADMITTED: LOS: 2 days Binh PAULSON is 60 y.o. female wit h history of cirrhosis, atrial fibrillation on warfarin, gastrointesti nal bleeding, rectus sheath hematoma and extra-peritoneal hematoma who recei kavin 25 mL of RBCs on 11/06/2020 with no premedication. Patient developed sys tolic hypotension 15 minutes after the transfusion started. Vital Signs: Temperature: 36.4C to 36.4C; Blood Pres sure: 103/61 mmHg to 70/43mmHg. The MAP: 75 mmHg to 52 mmHg, Pulse: 63 to 1 27; O2Sat: 98 % to100 % on room air. Patient responded to fluid resuscitatio n (saline bolus, 500ml), but her BP dropped again shortly. Her Hb dropped f rom 7.4g/dL to 4.5g/dL with 9 hours, which indicates active bleeding. Patien t received emergent mesenteric angiogram with coiling of the inferior epigastric arteries. Her Hb increased to 5.7g/dL 3 hours later. Blo od bank investigation for hemolysis was negative. Physician Interpretation: Patient s symptoms were most likely due to unde rlying disease Affective changes following head trauma 09/07/2020 09/07/2020 Chest pain 06/01/2020 06/12/2020 Primary pulmonary hypertension 05/25/2020 021 Cor pulmonale (chronic) 05/25/2020 08/01/2020 Encounters Care Team Description Date Type Specialty Rosa Rojas RN DME Order (Abdominal Binder) 12/13/2020 Telephone Cardiology Basilia Gaitan APRN-NP Post-hospital Follow Up 12/12/2020 Office Visit Cardiology 12/12/2020 Travel Helen Waggoner RN Follow Up (Patient INR Goal 12/12/2020) 12/12/2020 Telephone Cardiology Josi Purvis BSN Severe tricuspid regurgitation; Paroxysmal atrial fibrillation (HCC); Non-ischemic cardiomyopathy (HCC); History of endocarditis; High output congestive heart failure (HCC) 12/12/2020 Orders Only Cardiology Helen Waggoner RN Anticoagulation (INR 2.0) 12/11/2020 Anticoagulation Cardiology Kathryn Barbosa MA Labs Only 12/11/2020 Documentation Cardiology Josi Purvis BSN Lab Request 12/11/2020 Telephone Cardiology Josi Purvis BSN Medication Follow-up 12/08/2020 Telephone Cardiology Orquidea Doe MD Goff, Ashley M, APRN-TWYLA Other cirrhosis of liver (HCC) (Primary Dx) 12/07/2020 Office Visit Transplant Surgery 12/07/2020 Travel Kathryn Barbosa [place] Labs Only 12/06/2020 Documentation Cardiology Christelle Robbins RN Anticoagulation (INR 1.7) 12/06/2020 Anticoagulation Cardiology Mariely Chan LPN Post-hospital Follow Up (72 hour post ho spital follow up call) 12/05/2020 Telephone Cardiology Wisam Valencia MD 12/01/2020 Documentation Oncology Maggi Atkinson MD Miller, Nikki C, MD Madi, Mahmoud Y, MD Tarakji, Ahmad G, MD Acute on chronic heart failure (HCC) 11/29/2020 Hospital - Encounter 12/04/2020 Basilia Gaitan, BACON DE RINDER-DEAF INTERPRETER Follow Up (1 week HF f/u, labs drawn owen or to OV today, abdominal bloating, constipation) 11/29/2020 Office Visit Cardiology Basilia Gaitan, BACON DE RINDER-DEAF INTERPRETER 11/29/2020 Hospital Lab Encounter 11/29/2020 Travel Yesica Oliver MA 11/29/2020 Patient Profile Cardiology Susan Palomino RN Anticoagulation (INR 2.9) 11/28/2020 Anticoagulation Cardiology Fernie Camargo LPN 11/28/2020 Telephone Cardiology Kathryn Barbosa MA Labs Only 11/28/2020 Documentation Cardiology Josi Purvis BSN Provider Discussion About Patient (New I NR 1.6-2.0) 11/24/2020 Telephone Cardiology Helen Waggoner RN Anticoagulation (INR 1.9) 11/24/2020 Anticoagulation Cardiology Kathryn Barbosa MA Labs Only 11/24/2020 Documentation Cardiology Josi Purvis BSN Follow-up Phone Call 11/24/2020 Telephone Cardiology Fernie Camargo LPN Anticoagulation 11/24/2020 Telephone Cardiology Blanche Padilla RN Anticoagulation (INR 2.3) 11/23/2020 Anticoagulation Cardiology JcDesire stephenstany Labs Only (INR) 11/23/2020 Documentation Cardiology Fernie Camargo LPN Anticoagulation (Pt accidently took extr a Warfarin, see note) 11/23/2020 Telephone Cardiology Basilia Gaitan, BACON DE RINDER-DEAF INTERPRETER Post-hospital Follow Up; Heart Failure 11/21/2020 Office Visit Cardiology Susan Palomino RN Anticoagulation (INR 1.7) 11/21/2020 Anticoagulation Cardiology 11/21/2020 Travel Susan Palomino RN Anticoagulation 11/20/2020 Anticoagulation Cardiology Fernie Camargo LPN 11/20/2020 Telephone Cardiology Mariely Chan LPN Post-hospital Follow Up (72 hour post ho spital follow up call) 11/16/2020 Telephone Cardiology Gabriel Woodward MD 11/09/2020 Orders Only Urology Gabriel Woodward MD Gross hematuria (Primary Dx) 11/09/2020 Orders Only Urology Orquidea Doe MD Appointment Request 11/08/2020 Telephone Transplant Surgery Derrick Meza MD Barbaryan, Aram, MD Tripathi, Alok K, MD Beasley, Jeffrey L, Nontraumatic rectus hematoma 11/04/2020 Hospital - Encounter 11/15/2020 11/04/2020 Travel Josi Purvis BSN Anticoagulation (INR 2.4) 11/02/2020 Anticoagulation Cardiology Fernie Camargo LPN Follow-up Phone Call 10/31/2020 Telephone Cardiology Josi Purvis BSN Anticoagulation (INR 1.6) 10/30/2020 Anticoagulation Cardiology Kathryn Barbosa, MA Labs Only 10/30/2020 Documentation Cardiology Orquidea [...] loss (Primary Dx) 10/26/2020 Orders Only Hepatology Ceci Durand 10/25/2020 Clinical Cardiology Support Riley Caraballo MD Shih, Grace H, MD 10/21/2020 Anesthesia Gastroenterology Event Cosmo Gomez MD ESOPHAGOGASTRODUODENOSCOPY WITH SPECIMEN COLLECTION BY BRUSHING/ WASHING 10/21/2020 Surgery Gastroenterology Javi Tillman MD 10/21/2020 Hospital Cardiology Encounter Leonardo Davis MD Raza, Sidra, MD Rahim, Zhilwan K, DO GI bleeding 10/20/2020 Hospital - Encounter 10/26/2020 10/20/2020 Travel Leonardo Davis MD Not Performed CATHETERIZATION RIGHT HEART WITH INSERTION PULMONARY ARTERY SENSOR 10/20/2020 Surgery Cardiology Kathi Chen RN 10/19/2020 Telephone Cardiology Kathi Chen RN 10/19/2020 Prep for Case Cardiology Kathi Chen RN 10/19/2020 Prep for Case Cardiology Kathryn Barbosa MA Labs Only (COVID result) 10/17/2020 Documentation Cardiology Nithya Madison APRN-DEAF INTERPRETER Follow Up 10/12/2020 Office Visit Cardiology Santos [...] Taisha Botello RN 09/20/2020 Orders Only Cardiology from Last 3 Months Immunizations Name Administration Dates Next Due Flu Vaccine Quadrivalent 05/25/2019 Recombinant =>20 YO PF Pneumococcal Vaccine 03/05/2018 (23-Angelique Adult) Pneumococcal 11/21/2017 Vaccine(13-Angelique Peds/immunocompromised adult) Surgical History Surgery Date Site/Laterality Comments AORTIC VALVE REPLACEMENT 05/22/2009 - mechanical 06/21/2009 UPPER GASTROINTESTINAL 06/06/2020 N/A ESOPHAG OGASTRODUODENOSCOPY WITH BIOPSY - FLEXIBLE ENDOSCOPY performed by Leonidas Hernández MD at [facility] COLONOSCOPY 06/06/2020 N/A COLONOSCOPY LAWSON GNOSTIC WITH SPECIMEN COLLECTION BY BRUSHING/ WASHING - FLEXIBLE performed by Bao Hernández MD at [facility] END[facility] UPPER GASTROINTESTINAL 10/21/2020 N/A ESOPHAG OGASTRODUODENOSCOPY WITH SPECIMEN ENDOSCOPY - 10/22/2020 COLLECTION BY BRUSH ING/ WASHING performed by Cosmo Gomez MD at [facility] END[facility] SIGMOIDOSCOPY 10/21/2020 N/A SIGMOIDOSCOPY W ITH CONTROL OF BLEEDING - FLEXIBLE - 10/22/2020 performed by Cosmo Gomez MD at [facility] SIGMOIDOSCOPY 10/21/2020 SIGMOIDOSCOPY WITH DIRECTED SUBMUCOSAL INJECTION - - 10/22/2020 FLEXIBLE performed by Cosmo Pastor MD at [facility] Medical History Medical History Date Comments [...] at Date Recorded 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 Last Filed Vital Signs Reading Time Taken Comments Vital Sign 100/52 12/12/2020 2:28 PM CDT Blood Pressure 103 12/12/2020 2:28 PM CDT Pulse 36.7 C (98 F) 12/12/2020 2:28 PM CDT Temperature 18 12/07/2020 3:19 PM CDT Respiratory Rate 98% 12/12/2020 2:28 PM CDT Oxygen Saturation - - Inhaled Oxygen Concentration 60.4 kg (133 lb 3.2 oz) 12/12/2020 2:28 PM CDT Weight 157.5 cm (5' 2") 12/12/2020 2:28 PM CDT Height 24.36 12/12/2020 2:28 PM CDT Body Mass Index Plan of Treatment Health Maintenance Due Date Last Done Comments MEDICARE ANNUAL WELLNESS 1960 VISIT DTAP/TDAP VACCINES (1 - 01/05/1980 Tdap) PHYSICAL (COMPREHENSIVE) 01/05/1980 EXAM CERVICAL CANCER SCREENING 1983 BREAST CANCER SCREENING 2002 SHINGLES RECOMBINANT 01/05/2012 VACCINE (1 of 2) INFLUENZA VACCINE 10/22/2020 05/25/2019 COLORECTAL CANCER 06/06/2030 06/06/2020, SCREENING 06/06/2020 HEPATITIS C SCREENING Completed 06/01/2020 HIV SCREENING Completed 06/02/2020 Goals Goal Patient Associated Recent Progress Patient-Stat Aut hor Goal Type Problems ed? 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 Singh Implants Device Identifier Shelf Expiration Date Model / Serial / L ot Implanted Type Area Manufactur er [id number] 07/21/2021 [id number] / N/A / [id number] Device Closure 70cm 6fr Angio-Seal TERUMO Vip .035in Vascular - Sn/A MEDICAL Implanted: Qty: 1 on 11/06/2020 at [facility] [id number] 06/08/2025 [id number] / . / [id number] Coil Embolization 14cm 3mm .018in COOK Nomi 14.9 Loop Soft - S. MEDICAL Implanted: Qty: 1 on 11/06/2020 at [facility] [id number] 06/08/2025 [id number] / . / [id number] Coil Embolization 14cm 3mm .018in COOK Nomi 14.9 Loop Soft - S. MEDICAL Implanted: Qty: 1 on 11/06/2020 at [facility] [id number] 06/08/2025 [id number] / . / [id number] Coil Embolization 14cm 3mm .018in COOK Nomi 14.9 Loop Soft - S. MEDICAL Implanted: Qty: 1 on 11/06/2020 at [facility] [id number] 06/08/2025 [id number] / . / [id number] Coil Embolization 14cm 3mm .018in COOK Nomi 14.9 Loop Soft - S. MEDICAL Implanted: Qty: 1 on 11/06/2020 at [facility] [id number] 09/02/2028 [id number] / . / [id number] Coil Embolization 10cm .02in 4mm PENUMBRA Penumbra Coil 400 [employer] Implanted: Qty: 1 on 11/06/2020 at [facility] [id number] 06/08/2025 [id number] / . / [id number] Coil Embolization 14cm 3mm .018in COOK Nomi 14.9 Loop Soft - S. MEDICAL Implanted: Qty: 1 on 11/06/2020 at [facility] [id number] 06/08/2025 [id number] / . / [id number] Coil Embolization 14cm 3mm .018in COOK Nomi 14.9 Loop Soft - S. MEDICAL Implanted: Qty: 1 on 11/06/2020 at [facility] [id number] 06/08/2025 [id number] / . / [id number] Coil Embolization 14cm 3mm .018in COOK Nomi 14.9 Loop Soft - S. MEDICAL Implanted: Qty: 1 on 11/06/2020 at [facility] [id number] 06/08/2025 [id number] / . / [id number] Coil Embolization 14cm 3mm .018in COOK Nomi 14.9 Loop Soft - S. MEDICAL Implanted: Qty: 1 on 11/06/2020 at [facility] [id number] 07/03/2028 [id number] / . / [id number] Coil Ansley Pod J 30cm - S. PENUMBRA Implanted: Qty: 1 on 11/06/2020 at [facility] [id number] 02/24/2027 [id number] / . / [id number] Coil [employer] Pod J 45cm - S. PENUMBRA Implanted: Qty: 1 on 11/06/2020 at [facility] [id number] 06/08/2025 [id number] / . / [id number] Coil Embolization 14cm 3mm .018in COOK Nomi 14.9 Loop Soft - S. MEDICAL Implanted: Qty: 1 on 11/06/2020 at [facility] Procedures Comments Procedure Name Priority Date/Time Associated Diag nosis HC CHEM 8 PANEL, POC 12/12/2020 3:25 PM CDT DIGOXIN LEVEL STAT 12/11/2020 Severe tricuspi d regurgitation Paroxysmal atrial fibrillation (HCC) Non-ischemic cardiomyopathy (HCC) History of endocarditis High output congestive heart failure (HCC) PROTIME INR (PT) Routine 12/08/2020 Paroxysmal at rial fibrillation ([facility]) HOME INR Routine 12/06/2020 PROTIME INR (PT) Routine 12/06/2020 Paroxysmal at rial fibrillation ([facility]) HC MAGNESIUM Add on 12/04/2020 3:52 AM CDT HC DIGOXIN Routine 12/04/2020 3:52 AM CDT HC COMPREHENSIVE Routine 12/04/2020 METABOLIC PANEL 3:52 AM CDT HC CBC W/ AUTOMATED DIFF Routine 12/04/2020 3:52 AM CDT HC PT(INR) Routine 12/04/2020 3:52 AM CDT HC MAGNESIUM Routine 12/03/2020 2:53 PM CDT HC BASIC METABOLIC PANEL Routine 12/03/2020 2:53 PM CDT HC COMPREHENSIVE Routine 12/03/2020 METABOLIC PANEL 4:24 AM CDT HC CBC W/ AUTOMATED DIFF Routine 12/03/2020 4:24 AM CDT HC PT(INR) Routine 12/03/2020 4:24 AM CDT HC BASIC METABOLIC PANEL Routine 12/02/2020 1:14 PM CDT IR PARACENTESIS Routine 12/02/2020 THERAPEUTIC 9:46 AM CDT HC DIGOXIN Routine 12/02/2020 4:54 AM CDT HC PT(INR) Routine 12/02/2020 4:54 AM CDT HC COMPREHENSIVE Routine 12/02/2020 METABOLIC PANEL 4:54 AM CDT HC CBC W/ AUTOMATED DIFF Routine 12/02/2020 4:54 AM CDT US ABDOMEN LIMITED Routine 12/01/2020 3:02 PM CDT HC BASIC METABOLIC PANEL Routine 12/01/2020 12:47 PM CDT HC PT(INR) Routine 12/01/2020 6:04 AM CDT HC COMPREHENSIVE Routine 12/01/2020 METABOLIC PANEL 6:04 AM CDT HC CBC W/ AUTOMATED DIFF Routine 12/01/2020 6:04 AM CDT 2D + DOPPLER ECHO W/ Routine 11/30/2020 CONTRAST 7:55 AM CDT HC MAGNESIUM Add on 11/30/2020 4:25 AM CDT HC PT(INR) Routine 11/30/2020 4:25 AM CDT HC COMPREHENSIVE Routine 11/30/2020 METABOLIC PANEL 4:25 AM CDT HC CBC W/ AUTOMATED DIFF Routine 11/30/2020 4:25 AM CDT CONSULT IV THERAPY TEAM Routine 11/29/2020 9:25 PM CDT CONSULT IV THERAPY TEAM STAT 11/29/2020 5:42 PM CDT CHEST SINGLE VIEW Routine 11/29/2020 5:38 PM CDT HC B-TYPE NATRIURETIC Routine 11/29/2020 PEPTIDE 5:22 PM CDT HC Routine 11/29/2020 LIPID-5:CHOL/TRG/HDL/LDL+ 5:22 PM CDT VLDL HC HEMOGLOBIN A1C Routine 11/29/2020 5:22 PM CDT ECG 12-LEAD STAT 11/29/2020 4:21 PM CDT COVID-19 (SARS-COV-2) PCR Routine 11/29/2020 4:20 PM CDT HC PHOSPHOROUS, SERUM Add on 11/29/2020 10:40 AM CDT HC MAGNESIUM Add on 11/29/2020 10:40 AM CDT HC BASIC METABOLIC PANEL Routine 11/29/2020 Hemat ochezia 10:40 AM CDT Gastrointestinal hemorrhage, unspecified gastrointestinal hemorrhage type Atrial tachycardia (HCC) HC CBC W/ AUTOMATED DIFF Routine 11/29/2020 Iron deficiency anemia, 10:40 AM CDT unspecified iron deficiency anemia type HC IRON BINDING CAPACITY Routine 11/29/2020 Iron deficiency anemia, + %SAT 10:40 AM CDT unspecified iron deficiency anemia type HC PT(INR) Routine 11/29/2020 Chronic heart f ailure 10:40 AM CDT with preserved ejection fraction (HCC) TELEMETRY STRIPS-SCAN 11/29/2020 12:00 AM CDT TELEMETRY STRIPS-SCAN 11/29/2020 12:00 AM CDT TELEMETRY STRIPS-SCAN 11/29/2020 12:00 AM CDT TELEMETRY STRIPS-SCAN 11/29/2020 12:00 AM CDT TELEMETRY STRIPS-SCAN 11/29/2020 12:00 AM CDT TELEMETRY STRIPS-SCAN 11/29/2020 12:00 AM CDT TELEMETRY STRIPS-SCAN 11/29/2020 12:00 AM CDT TELEMETRY STRIPS-SCAN 11/29/2020 12:00 AM CDT TELEMETRY STRIPS-SCAN 11/29/2020 12:00 AM CDT ECG-SCAN 11/29/2020 12:00 AM CDT TELEMETRY STRIPS-SCAN 11/29/2020 12:00 AM CDT TELEMETRY STRIPS-SCAN 11/29/2020 12:00 AM CDT TELEMETRY STRIPS-SCAN 11/29/2020 12:00 AM CDT TELEMETRY STRIPS-SCAN 11/29/2020 12:00 AM CDT PROTIME INR (PT) Routine 11/28/2020 Chronic heart failure with preserved ejection fraction (HCC) PROTIME INR (PT) Routine 11/24/2020 Chronic heart failure with preserved ejection fraction (HCC) Paroxysmal atrial fibrillation (HCC) PROTIME INR (PT) Routine 11/23/2020 Chronic heart failure with preserved ejection fraction (HCC) HC CBC,AUTOMATED Routine 11/21/2020 Acute on horseradish grinder shantanu heart 9:39 AM CDT failure with preserved ejection fraction (HCC) Aortic valve prosthesis present Iron deficiency anemia due to chronic blood loss HC BNP POC 11/21/2020 Acute on chronic he art 8:32 AM CDT failure with preserved ejection fraction (HCC) Aortic valve prosthesis present HC CHEM 8 PANEL, POC 11/21/2020 Acute on chronic heart 8:32 AM CDT failure with preserved ejection fraction (HCC) Aortic valve prosthesis present HC PT(INR) POC 11/21/2020 Acute on chronic he art 8:24 AM CDT failure with preserved ejection fraction (HCC) Aortic valve prosthesis present HC PHOSPHOROUS, SERUM Routine 11/15/2020 6:10 AM CDT HC COMPREHENSIVE Routine 11/15/2020 METABOLIC PANEL 6:10 AM CDT HC CBC W/ AUTOMATED DIFF Routine 11/15/2020 6:10 AM CDT HC PT(INR) Routine 11/15/2020 6:10 AM CDT CULTURE-URINE Routine 11/14/2020 W/SENSITIVITY 5:35 PM CDT HC CBC W/ AUTOMATED DIFF Routine 11/14/2020 5:17 AM CDT HC PHOSPHOROUS, SERUM Routine 11/14/2020 5:17 AM CDT HC COMPREHENSIVE Routine 11/14/2020 METABOLIC PANEL 5:17 AM CDT HC PT(INR) Routine 11/14/2020 5:17 AM CDT HC HEMOGLOBIN Routine 11/14/2020 12:27 AM CDT HC CBC W/ AUTOMATED DIFF Routine 11/13/2020 7:12 AM CDT HC PHOSPHOROUS, SERUM Routine 11/13/2020 7:12 AM CDT HC COMPREHENSIVE Routine 11/13/2020 METABOLIC PANEL 7:12 AM CDT HC PT(INR) Routine 11/13/2020 7:12 AM CDT HC CBC W/ AUTOMATED DIFF Routine 11/12/2020 8:24 AM CDT HC PHOSPHOROUS, SERUM Routine 11/12/2020 8:24 AM CDT HC COMPREHENSIVE Routine 11/12/2020 METABOLIC PANEL 8:24 AM CDT HC PT(INR) Routine 11/12/2020 8:24 AM CDT HC CBC W/ AUTOMATED DIFF Routine 11/11/2020 6:05 AM CDT HC PHOSPHOROUS, SERUM Routine 11/11/2020 6:05 AM CDT HC COMPREHENSIVE Routine 11/11/2020 METABOLIC PANEL 6:05 AM CDT HC PT(INR) Routine 11/11/2020 6:05 AM CDT HC CBC,AUTOMATED Routine 11/10/2020 10:02 AM CDT HC PHOSPHOROUS, SERUM Routine 11/10/2020 10:02 AM CDT HC COMPREHENSIVE Routine 11/10/2020 METABOLIC PANEL 10:02 AM CDT HC PT(INR) Routine 11/10/2020 10:02 AM CDT HC CBC,AUTOMATED Routine 11/09/2020 9:42 PM CDT CBC Routine 11/09/2020 1:27 PM CDT HC HAPTOGLOBIN;QUANT Routine 11/09/2020 9:45 AM CDT HC LD(LDH;LACTIC Add on 11/09/2020 DEHYDROGENASE) 5:43 AM CDT HC BILIRUBIN DIRECT Add on 11/09/2020 5:43 AM CDT HC CBC,AUTOMATED 11/09/2020 5:43 AM CDT HC PHOSPHOROUS, SERUM Routine 11/09/2020 5:43 AM CDT HC COMPREHENSIVE Routine 11/09/2020 METABOLIC PANEL 5:43 AM CDT HC PT(INR) Routine 11/09/2020 5:43 AM CDT CBC Routine 11/08/2020 9:28 PM CDT OR BLOOD SMEAR PERIPHERAL Routine 11/08/2020 INTERP PHYS W/WRIT REPORT 5:46 PM CDT HC FIBRINOGEN Routine 11/08/2020 5:[address] LOWER EXTREM WO CONT Routine 11/08/2020 BILAT 5:[address] ABD/PELV WO CONTRAST Routine 11/08/2020 5:28 PM CDT HC CBC,AUTOMATED 91 Routine 11/08/2020 3:03 PM CDT HC CBC W/ AUTOMATED DIFF Routine 11/08/2020 10:04 AM CDT HC PHOSPHOROUS, SERUM Routine 11/08/2020 2:32 AM CDT HC COMPREHENSIVE Routine 11/08/2020 METABOLIC PANEL 2:32 AM CDT HC PT(INR) Routine 11/08/2020 2:32 AM CDT HC CBC W/ AUTOMATED DIFF Routine 11/08/2020 2:32 AM CDT HC CBC W/ AUTOMATED DIFF Routine 11/07/2020 6:50 PM CDT TRANSFUSE RBC'S Routine 11/07/2020 11:13 AM CDT HC CBC W/ AUTOMATED DIFF Routine 11/07/2020 9:14 AM CDT ECG 12-LEAD Routine 11/07/2020 7:12 AM CDT HC PHOSPHOROUS, SERUM Routine 11/07/2020 5:24 AM CDT HC COMPREHENSIVE Routine 11/07/2020 METABOLIC PANEL 5:24 AM CDT HC PT(INR) Routine 11/07/2020 5:24 AM CDT HC CBC W/ AUTOMATED DIFF Routine 11/07/2020 3:53 AM CDT HC CBC W/ AUTOMATED DIFF Routine 11/06/2020 9:30 PM CDT TRANSFUSE RBC'S Routine 11/06/2020 7:36 PM CDT HC HEMOGLOBIN STAT 11/06/2020 3:20 PM CDT URINALYSIS, MICROSCOPIC STAT 11/06/2020 9:05 AM CDT HC URINALYSIS, AUTO W STAT 11/06/2020 MICRO 9:05 AM CDT URINE HGB FOR TRANFUSION STAT 11/06/2020 REACTION 9:05 AM CDT HC CBC W/ AUTOMATED DIFF Routine 11/06/2020 8:48 AM CDT HC PHOSPHOROUS, SERUM Routine 11/06/2020 8:26 AM CDT HC COMPREHENSIVE Routine 11/06/2020 METABOLIC PANEL 8:26 AM CDT HC PT(INR) Routine 11/06/2020 8:26 AM CDT POC GLUCOSE 11/06/2020 7:43 AM CDT IR MESENTERIC ARTERIOGRAM Routine 11/06/2020 DIAGNOSTIC 5:50 AM CDT TRANSFUSE RBC'S Routine 11/06/2020 4:50 AM CDT HC TEG W KAOLIN R Routine 11/06/2020 ACTIVATED CLOTTING TIME 3:49 AM CDT HC PTT(APTT) Routine 11/06/2020 3:49 AM CDT HC PT(INR) Routine 11/06/2020 3:49 AM CDT TRANSFUSION REACTION STAT 11/06/2020 EVALUATION 3:28 AM CDT HC B-TYPE NATRIURETIC STAT 11/06/2020 PEPTIDE 3:28 AM CDT HC BASIC METABOLIC PANEL Routine 11/06/2020 3:28 AM CDT CBC Routine 11/06/2020 3:28 AM CDT HC POC LACTIC ACID 11/06/2020 3:12 AM CDT HC CBC W/ AUTOMATED DIFF Routine 11/06/2020 12:00 AM CDT HC PTT(APTT) Routine 11/05/2020 9:49 PM CDT HC CBC W/ AUTOMATED DIFF Routine 11/05/2020 5:28 PM CDT HC PTT(APTT) Add on 11/05/2020 2:20 PM CDT HC PT(INR) STAT 11/05/2020 2:20 PM CDT HC CBC W/ AUTOMATED DIFF Routine 11/05/2020 11:18 AM CDT HC LACTIC ACID(LACTATE) Routine 11/05/2020 5:46 AM CDT HC PHOSPHOROUS, SERUM Routine 11/05/2020 5:46 AM CDT HC COMPREHENSIVE Routine 11/05/2020 METABOLIC PANEL 5:46 AM CDT HC PT(INR) Routine 11/05/2020 5:46 AM CDT HC CBC W/ AUTOMATED DIFF Routine 11/05/2020 5:46 AM CDT CHEST SINGLE VIEW Routine 11/04/2020 9:11 PM CDT COVID-19 (SARS-COV-2) PCR Routine 11/04/2020 8:41 PM CDT HC ABO GROUP STAT 11/04/2020 8:40 PM CDT HC *FREE T4 (REFLEX) STAT 11/04/2020 8:40 PM CDT HC TSH SCREEN Routine 11/04/2020 8:40 PM CDT HC B-TYPE NATRIURETIC Routine 11/04/2020 PEPTIDE 8:40 PM CDT HC COMPREHENSIVE STAT 11/04/2020 METABOLIC PANEL 8:40 PM CDT HC PT(INR) STAT 11/04/2020 8:40 PM CDT HC CBC W/ AUTOMATED DIFF STAT 11/04/2020 8:40 PM CDT ECG 12-LEAD Routine 11/04/2020 7:35 PM CDT ECG-SCAN 11/04/2020 12:00 AM CDT TELEMETRY STRIPS-SCAN 11/04/2020 12:00 AM CDT TELEMETRY STRIPS-SCAN 11/04/2020 12:00 AM CDT TELEMETRY STRIPS-SCAN 11/04/2020 12:00 AM CDT TELEMETRY STRIPS-SCAN 11/04/2020 12:00 AM CDT TELEMETRY STRIPS-SCAN 11/04/2020 12:00 AM CDT TELEMETRY STRIPS-SCAN 11/04/2020 12:00 AM CDT TELEMETRY STRIPS-SCAN 11/04/2020 12:00 AM CDT TELEMETRY STRIPS-SCAN 11/04/2020 12:00 AM CDT TELEMETRY STRIPS-SCAN 11/04/2020 12:00 AM CDT TELEMETRY STRIPS-SCAN 11/04/2020 12:00 AM CDT TELEMETRY STRIPS-SCAN 11/04/2020 12:00 AM CDT TELEMETRY STRIPS-SCAN 11/04/2020 12:00 AM CDT TELEMETRY STRIPS-SCAN 11/04/2020 12:00 AM CDT TELEMETRY STRIPS-SCAN 11/04/2020 12:00 AM CDT TELEMETRY STRIPS-SCAN 11/04/2020 12:00 AM CDT TELEMETRY STRIPS-SCAN 11/04/2020 12:00 AM CDT TELEMETRY STRIPS-SCAN 11/04/2020 12:00 AM CDT ECG-SCAN 11/04/2020 12:00 AM CDT TELEMETRY STRIPS-SCAN 11/04/2020 12:00 AM CDT TELEMETRY STRIPS-SCAN 11/04/2020 12:00 AM CDT TELEMETRY STRIPS-SCAN 11/04/2020 12:00 AM CDT TELEMETRY STRIPS-SCAN 11/04/2020 12:00 AM CDT TELEMETRY STRIPS-SCAN 11/04/2020 12:00 AM CDT TELEMETRY STRIPS-SCAN 11/04/2020 12:00 AM CDT TELEMETRY STRIPS-SCAN 11/04/2020 12:00 AM CDT TELEMETRY STRIPS-SCAN 11/04/2020 12:00 AM CDT TELEMETRY STRIPS-SCAN 11/04/2020 12:00 AM CDT TELEMETRY STRIPS-SCAN 11/04/2020 12:00 AM CDT TELEMETRY STRIPS-SCAN 11/04/2020 12:00 AM CDT HOME INR Routine 11/02/2020 PROTIME INR (PT) [...] fraction (HCC) ECG-SCAN 10/12/2020 12:00 AM CDT OR CONSLTJ&REPRT SLIDES 09/20/2020 PREPARED ELSEWHERE 9:42 AM CDT PATHOLOGY REPORTS FROM 09/20/2020 OUTSIDE SCAN 12:00 AM CDT from Last 3 Months Results * POC BASIC METABOLIC PANEL (BMP) (12/12/2020 3:25 PM CDT) Only the most recent of 2 results within the time period is included. Sodium-POC 132 (L) 137 - 147 MMOL/L [facility] Potassium-POC 3.7 3.5 - 5.1 MMOL/L [facility] Chloride, POC 93 (L) 98 - 110 MMOL/L [facility] CO2, POC 23 21 - 30 MMOL/L [facility] Anion Gap, POC 21 (H) 3 - 12 [facility] Glucose, POC 114 (H) 70 - 100 MG/DL [facility] Bun, POC 18 7 - 25 MG/DL [facility] Creatinine, POC 1.0 0.4 - 1.00 MG/DL [facility] Ionized 1.13 1.0 - 1.3 MMOL/L [facility] Calcium-POC Specimen Performing Organization Address City/State/ZIP Code P shane Number [facility] [address] [place] [address] * DIGOXIN LEVEL (12/11/2020) Only the most recent of 3 results within the time period is included. Digoxin 0.31 (A) 0.80 - 2.0 OTHER OUTSIDE LAB Specimen Blood - Blood Narrative Performed At This result has an attachment that is n ot available. Performing Organization Address City/State/ZIP Code P shane Number OTHER OUTSIDE LAB * PROTIME INR (PT) (12/08/2020) Only the most recent of 35 results within the time period is included. INR 2.0 (H) 0.8 - 1.4 [facility] Protime 23.1 (H) 12.2 - 14.7 [facility] Specimen Blood - Blood Narrative Performed At This result has an attachment that is n ot available. Performing Organization Address City/State/ZIP Code P shane Number [facility] [address] [place] [address] * HOME INR (12/06/2020) Only the most recent of 3 results within the time period is included. INR Home 1.7 OTHER OUTSIDE LAB Specimen Narrative Performed At This result has an attachment that is n ot available. Performing Organization Address City/State/ZIP Code P shane Number OTHER OUTSIDE LAB * CBC AND DIFF (12/04/2020 3:52 AM CDT) Only the most recent of 23 results within the time period is included. White Blood 12.7 (H) 4.5 - 11.0 K/UL [facility] Cells RBC 2.92 (L) 4.0 - 5.0 M/UL [facility] Hemoglobin 8.7 (L) 12.0 - 15.0 GM/DL [facility] Hematocrit 26.6 (L) 36 - 45 % [facility] MCV 90.9 80 - 100 FL [facility] MCH 29.9 26 - 34 PG [facility] MCHC 32.9 32.0 - 36.0 G/DL [facility] RDW 18.5 (H) 11 - 15 % [facility] Platelet Count 326 150 - 400 K/UL [facility] MPV 6.4 (L) 7 - 11 FL [facility] Neutrophils 90 (H) 41 - 77 % [facility] Lymphocytes 3 (L) 24 - 44 % [facility] Monocytes 6 4 - 12 % [facility] Eosinophils 1 0 - 5 % [facility] Basophils 0 0 - 2 % [facility] Absolute 11.41 (H) 1.8 - 7.0 K/UL [facility] Neutrophil Count Absolute Lymph 0.31 (L) 1.0 - 4.8 K/UL [facility] Count Absolute 0.77 0 - 0.80 K/UL [facility] Monocyte Count Absolute 0.16 0 - 0.45 K/UL [facility] Eosinophil Count Absolute 0.00 0 - 0.20 K/UL [facility] Basophil Count Specimen Blood Performing Organization Address City/State/ZIP Code P shane Number [facility] [address] [place] [address] * MAGNESIUM (12/04/2020 3:52 AM CDT) Only the most recent of 9 results within the time period is included. Magnesium 2.0 1.6 - 2.6 mg/dL [facility] Specimen Performing Organization Address City/[facility]/ZIP Code P shane Number [facility] [address] [place] [address] * COMPREHENSIVE METABOLIC PANEL (12/04/2020 3:52 AM CDT) Only the most recent of 24 results within the time period is included. Sodium 132 (L) 137 - 147 MMOL/L [facility] Potassium 3.8 3.5 - 5.1 MMOL/L [facility] Chloride 96 (L) 98 - 110 MMOL/L [facility] Glucose 106 (H) 70 - 100 MG/DL [facility] Blood Urea 16 7 - 25 MG/DL [facility] Nitrogen Creatinine 0.92 0.4 - 1.00 MG/DL [facility] Calcium 8.2 (L) 8.5 - 10.6 MG/DL [facility] Total Protein 5.7 (L) 6.0 - 8.0 G/DL [facility] Total Bilirubin 0.8 0.3 - 1.2 MG/DL [facility] Albumin 2.9 (L) 3.5 - 5.0 G/DL [facility] Alk Phosphatase 91 25 - 110 U/L [facility] AST (SGOT) 20 7 - 40 U/L [facility] CO2 29 21 - 30 MMOL/L [facility] ALT (SGPT) 10 7 - 56 U/L [facility] Anion Gap 7 3 - 12 [facility] eGFR Non >60 >60 mL/min [facility] Comment: [place] The eGFR is not validated f or use in drug dosing adjustments. Continue to use estimated creatinine clearance per dosing reference text. Please contact the Clinical Pharmacist for questions. eGFR >60 >60 mL/min [facility] [place] Comment: The eGFR is not validated for use in drug dosing adjustments. Continue to use estimated creatinine clearance per dosing reference text. Please contact the Clinical Pharmacist for questions. Specimen Blood Performing Organization Address City/State/ZIP Code P shane Number [facility] [address] [place] [address] * BASIC METABOLIC PANEL (12/03/2020 2:53 PM CDT) Only the most recent of 8 results within the time period is included. Sodium 134 (L) 137 - 147 MMOL/L [facility] Potassium 3.4 (L) 3.5 - 5.1 MMOL/L [facility] Chloride 95 (L) 98 - 110 MMOL/L [facility] CO2 29 21 - 30 MMOL/L [facility] Anion Gap 10 3 - 12 [facility] Glucose 144 (H) 70 - 100 MG/DL [facility] Blood Urea 15 7 - 25 MG/DL [facility] Nitrogen Creatinine 0.93 0.4 - 1.00 MG/DL [facility] Calcium 8.1 (L) 8.5 - 10.6 MG/DL [facility] eGFR Non >60 >60 mL/min [facility] Comment: [place] The eGFR is not validated f or use in drug dosing adjustments. Continue to use estimated creatinine clearance per dosing reference text. Please contact the Clinical Pharmacist for questions. eGFR >60 >60 mL/min [facility] [place] Comment: The eGFR is not validated for use in drug dosing adjustments. Continue to use estimated creatinine clearance per dosing reference text. Please contact the Clinical Pharmacist for questions. Specimen Blood Performing Organization Address City/State/ZIP Code P shane Number [facility] [address] [place] [address] * IR PARACENTESIS THERAPEUTIC (12/02/2020 9:46 AM CDT) Specimen Impressions Performed At Successful therapeutic ultrasound guided paracentesis . 6300 mL of fluid was [facility] removed. Approved by Ramo Purcell MD on 12/02 10:20 AM IIban M.D., the attending radiologist, was present for the procedure, personally reviewed the imag es, and formulated the interpretations and opinions expressed in this report. @TT By my electronic signature, I attest th at I have personally reviewed the images for this examination and formulated the interpretations and opinions expressed in this report Finalized by Iban Sue M.D. on 01/2021 11:23 AM. Dictated by Ramo Purcell MD on 12/02/2020 10:19 AM. Narrative Performed At Therapeutic ultrasound-guided paracentesis [facility] CLINICAL INDICATION: Ascites EVENTS ASSISTANT: Ramo Purcell M.D. TECHNIQUE: Transverse real time images were obtained through the abdomen. The risks and benefits of this procedur e were discussed and informed written consent was obtained prior to performin g the procedure. The abdomen was then prepped and draped in usual sterile fashion. Limited ultrasound of the abdomen was performed . Under ultrasound guidance, a 5 [place] centesis needle was advanced into the p eritoneal fluid collection and catheter advanced into the collection over the n eedle and then the needle was removed. The catheter was connected to Vacutaine r bottles and 6300 mL straw-colored fluid was removed. There were no immediate co mplications of the procedure. No significant blood loss. Patient tolerat ed procedure well. FINDINGS: Moderate volume free peritoneal fluid d emonstrated on ultrasound. Procedure Note Interface, Radiant Results - 12/02/2020 11:26 AM CDT Therapeutic ultrasound-guided paracentesis CLINICAL INDICATION: Ascites EVENTS ASSISTANT: Ramo Purcell M.D. TECHNIQUE: Transverse real time images were obtained through the abdomen. The risks and benefits of this procedure were discussed and informed written consent was obtained prior to performing the procedure. The abdomen was then prepped and draped in usual sterile fashion. Limited ultrasound of the abdomen was performed. Under ultrasound guidance, a 5 [place] centesis needle was advanced into the peritoneal fluid collection and catheter advanced into the collection over the needle and then the needle was removed. The catheter was connected to Vacutainer bottles and 6300 mL straw-colored fluid was removed. There were no immediate complications of the procedure. No significant blood loss. Patient tolerated procedure well. FINDINGS: Moderate volume free peritoneal fluid demonstrated on ultrasound. IMPRESSION Successful therapeutic ultrasound guided paracentesis. 6300 mL of fluid was removed. Approved by Ramo Purcell MD on 12/02/2020 10:20 AM IIban M.D., the attending radiologist, was present for the procedure, personally reviewed the images, and formulated the interpretations and opinions expressed in this report. @TT By my electronic signature, I attest that I have personally reviewed the images for this examination and formulated the interpretations and opinions expressed in this report Finalized by Iban Sue M.D. on 12/02/2020 11:23 AM. Dictated by Ramo Purcell MD on 12/02/2020 10:19 AM. Performing Organization Address City/State/ZIP Code P shane Number [facility] * US ABDOMEN LIMITED (12/01/2020 3:02 PM CDT) Specimen Impressions Performed At 1. Cirrhotic morphology of the upper limits of norm al sized liver. No focal [facility] hepatic mass. 2. Large volume ascites. Normal size spleen. 3. Dilation of the IVC and hepatic ve ins, likely secondary to reported heart failure. 4. Right pleural effusion. By my electronic signature, I attest th at I have personally reviewed the images for this examination and formulated the interpretations and opinions expressed in this report Finalized by Loyda Romeo M.D. on 12/2020 3:31 PM. Dictated by Kasi Hills M.D. on 12/01/2020 2:57 PM. Narrative Performed At LIMITED ABDOMINAL ULTRASOUND [facility] HISTORY: Female, 60 year old. Heart f ailure/ascites, liver disease. COMPARISON: CT abdomen pelvis November 08, 2020 TECHNIQUE: Multiple real-time graysca le sonographic images were obtained of the abdomen. FINDINGS: Liver: The liver demonstrates heterogen ous echotexture, nodular contour, and upper limits of limits of normal in siz e measuring 18.5 cm in length. No focal liver lesions are identified. There is dilation of the IVC and hepatic veins, likely secondary to reported heart fail ure. Biliary System: No intrahepatic biliary ductal dilatation is identified. The common duct measures 0.3 cm. The gallbl adder is contracted without echogenic gallstones. Spleen: Normal in size measuring 11.7 c m. Peritoneal Space: Large volume abdomino pelvic ascites. Other: Right pleural effusion. Procedure Note Interface, Radiant Results - 12/01/2020 3:35 PM CDT LIMITED ABDOMINAL ULTRASOUND HISTORY: Female, 60 year old. Heart failure/ascites, liver disease. COMPARISON: CT abdomen pelvis November 08, 2020 TECHNIQUE: Multiple real-time grayscale sonographic images were obtained of the abdomen. FINDINGS: Liver: The liver demonstrates heterogenous echotexture, nodular contour, and upper limits of limits of normal in size measuring 18.5 cm in length. No focal liver lesions are identified. There is dilation of the IVC and hepatic veins, likely secondary to reported heart failure. Biliary System: No intrahepatic biliary ductal dilatation is identified. The common duct measures 0.3 cm. The gallbladder is contracted without echogenic gallstones. Spleen: Normal in size measuring 11.7 cm. Peritoneal Space: Large volume abdominopelvic ascites. Other: Right pleural effusion. IMPRESSION 1. Cirrhotic morphology of the upper li mits of normal sized liver. No focal hepatic mass. 2. Large volume ascites. Normal size sp shi. 3. Dilation of the IVC and hepatic vein s, likely secondary to reported heart failure. 4. Right pleural effusion. By my electronic signature, I attest that I have personally reviewed the images for this examination and formulated the interpretations and opinions expressed in this report Finalized by Loyda Romeo M.D. on 12/01/2020 3:31 PM. Dictated by Kasi Hills M.D. on 12/01/2020 2:57 PM. Performing Organization Address City/State/ZIP Code P shane Number [facility] * 2D + DOPPLER ECHO (11/30/2020 7:55 AM CDT) Only the most recent of 2 results within the time period is included. IVS 1.40 0.6 - 0.9 cm OTHER OUTSIDE LAB LVIDD 4.10 3.8 - 5.2 cm OTHER OUTSIDE LAB LVIDS 3.10 2.2 - 3.5 cm OTHER OUTSIDE LAB LVOT peak VTI 15.30 cm OTHER OUTSIDE LAB PW 1.40 0.6 - 0.9 cm OTHER OUTSIDE LAB LA size 5.80 2.7 - 3.8 cm OTHER OUTSIDE LAB , with a mean 11 mmHg OTHER OUTSIDE gradient of LAB Ao VTI 38.8 cm OTHER OUTSIDE LAB Sinus 2.90 2.4 - 3.6 cm OTHER OUTSIDE LAB Radius 0.70 cm OTHER OUTSIDE LAB Proximal aorta 3.70 1.9 - 3.5 cm OTHER OUTSIDE LAB Right Heart 2.02 >1.7 cm OTHER OUTSIDE Systolic Mmode LAB TAPSE Right 5.10 1.9 - 3.5 cm OTHER OUTSIDE Ventricular Mid LAB Diameter Right 6.50 2.5 - 4.1 cm OTHER OUTSIDE Ventricular LAB Basal Diameter Right Atrial 6.89 2.2 - 2.8 cm OTHER OUTSIDE Major Dimension LAB Right Atrial 29.10 <18 cm2 OTHER OUTSIDE Area LAB Right Heart 0.10 m/s OTHER OUTSIDE Systolic TDI S' LAB BSA 1.76 m2 OTHER OUTSIDE LAB FS 24.39 28 - 44 % OTHER OUTSIDE LAB EF 41.46 % OTHER OUTSIDE LAB LA volume 90 22 - 52 mL OTHER OUTSIDE LAB LV mass 217 67 - 162 g OTHER OUTSIDE LAB RWT 0.68 <=0.42 OTHER OUTSIDE LAB Left Atrium 51.14 16 - 34 OTHER OUTSIDE Index LAB Cardiology Cass[facility] Epiq OTHER OUTSIDE Ultrasound LAB Machine Left Ventricle 123 43 - 95 g/m2 OTHER OUTSIDE Mass Index LAB Left Ventricle 151 46 - 106 mL OTHER OUTSIDE Diastolic LAB Volume Left Ventricle 86 29 - 61 mL OTHER OUTSIDE Diastolic LAB Volume Index Left Ventricle 68 14 - 42 mL OTHER OUTSIDE Systolic Volume LAB Left Ventricle 39 8 - 24 mL OTHER OUTSIDE Systolic Volume LAB Index AV peak 2.5 m/s OTHER OUTSIDE velocity LAB Aortic valve 1.24 cm2 OTHER OUTSIDE area = LAB AV index 0.28 OTHER OUTSIDE ([place]) LAB LVOT diameter 2.0 cm OTHER OUTSIDE LAB LVOT area 3.14 cm2 OTHER OUTSIDE LAB LVOT peak farhana 0.7 m/s OTHER OUTSIDE LAB LVOT stroke 48.07 cm3 OTHER OUTSIDE volume LAB and a peak 22 mmHg OTHER OUTSIDE gradient of LAB Vn Nyquist 0.29 m/s OTHER OUTSIDE LAB Mr max farhana 4.4 m/s OTHER OUTSIDE LAB MR PISA EROA 0.20 cm2 OTHER OUTSIDE LAB TV rest 76 mmHg OTHER OUTSIDE pulmonary LAB artery pressure TR PEAK 3.9 m/s OTHER OUTSIDE VELOCITY LAB RV SYSTOLIC 61 OTHER OUTSIDE PRESSURE LAB RA PRESSURE 15 OTHER OUTSIDE LAB ECHO EF 55 % OTHER OUTSIDE LAB Specimen Narrative Performed At OTHER OUTSIDE LAB 1. Normal left ventricular cavity size with moderate concentric hypertrophy 2. Normal ejection fraction estimated a t 55% 3. Severely dilated right ventricle wit h reduced function 4. Severe biatrial dilatation 5. Markedly elevated central venous pre ssure 6. Moderate mitral annular calcificatio n with mild mitral regurgitation 7. Severe tricuspid regurgitation 8. Mechanical aortic valve with a mean gradient of 11 mmHg and peak velocity of 2.5 m/s 9. No pericardial effusion. Left pleu ral effusion. 10. Estimated peak systolic PA pressure 76 mmHg. Compared to prior echocardiogram perfor med on 10/21/2020, findings are similar. EF was 60%. Mechanical aor tic valve mean gradient was 14 mmHg with a peak velocity of 2.6 m/s. Ther e was severe tricuspid regurgitation noted. Peak systolic PA pressure was 79 mmHg. Performing Organization Address City/State/ZIP Code P shane Number OTHER OUTSIDE LAB * CHEST SINGLE VIEW (11/29/2020 5:38 PM CDT) Only the most recent of 2 results within the time period is included. Specimen Impressions Performed At 1. Stable mild cardiomegaly and indistinct pulmonar y vasculature suggesting [facility] pulmonary edema. 2. Moderate right and trace left pleu ral effusions with bibasilar atelectasis. By my electronic signature, I attest th at I have personally reviewed the images for this examination and formulated the interpretations and opinions expressed in this report Finalized by Darrell Hopson M.D. on 021 8:58 AM. Dictated by Luciano Foss D.O. on 11/30/2020 7:49 AM. Narrative Performed At CHEST SINGLE VIEW [facility] INDICATION: Acute on chronic heart fail ure COMPARISON STUDY: Chest radiograph 11/04. FINDINGS: Lungs/Pleura: The lung volume is normal . Bibasilar opacities. Moderate right and trace left pleural effusions. No pneumo thorax. Heart and Mediastinum: Stable mild card iomegaly and indistinct pulmonary vasculature. Prior median sternotomy an d CABG. Prior aortic valve replacement. Procedure Note Interface, Radiant Results - 11/30/2020 9:01 AM CDT CHEST SINGLE VIEW INDICATION: Acute on chronic heart failure COMPARISON STUDY: Chest radiograph 11/04/2020. FINDINGS: Lungs/Pleura: The lung volume is normal. Bibasilar opacities. Moderate right and trace left pleural effusions. No pneumothorax. Heart and Mediastinum: Stable mild cardiomegaly and indistinct pulmonary vasculature. Prior median sternotomy and CABG. Prior aortic valve replacement. IMPRESSION 1. Stable mild cardiomegaly and indisti nct pulmonary vasculature suggesting pulmonary edema. 2. Moderate right and trace left pleura l effusions with bibasilar atelectasis. By my electronic signature, I attest that I have personally reviewed the images for this examination and formulated the interpretations and opinions expressed in this report Finalized by Darrell Hopson M.D. on 11/30/2020 8:58 AM. Dictated by Luciano Foss D.O. on 11/30/2020 7:49 AM. Performing Organization Address City/[facility]/ZIP Code P shane Number [facility] * BNP (B-TYPE NATRIURETIC PEPTI) (11/29/2020 5:22 PM CDT) Only the most recent of 4 results within the time period is included. B Type 396.0 (H) 0 - 100 PG/ML MAIN LAB Natriuretic Peptide Specimen Blood Performing Organization Address [facility] P shane Number MAIN LAB [address] [place] [address] * HEMOGLOBIN A1C (11/29/2020 5:22 PM CDT) Pathologist [facility] Hemoglobin A1C 4.8 4.0 - 6.0 % MAIN LAB Comment: The ADA recommends that most patients with type 1 and type 2 diabetes maintain an A1c level <7%. Specimen Blood Performing Organization Address [facility] P shnae Number MAIN LAB [address] [place] [phone] * LIPID PROFILE (11/29/2020 5:22 PM CDT) Pathologist [facility] Cholesterol 76 <200 MG/DL MAIN LAB Triglycerides 77 <150 MG/DL MAIN LAB HDL 25 (L) >40 MG/DL [facility] LDL 43 <100 mg/dL [facility] VLDL 15 MG/DL [facility] Non HDL 51 MG/DL MAIN LAB Cholesterol Comment: Calculated non-HDL Cholesterol (non-HDL-C) indirectly measures LDL-C, Lp(a), IDL-C, and VLDL-C. It is a surrogate marker for Apoprotein B. Goal should be less than 130 mg/dL. Specimen Blood Performing Organization Address [facility] P shane Number MAIN LAB [address] [phone] * COVID-19 (SARS-COV-2) PCR (11/29/2020 4:20 PM CDT) Only the most recent of 4 results within the time period is included. COVID-19 FLOCKED SWAB [facility] (SARS-CoV-2) NASOPHARYNGEAL PCR Source COVID-19 NOT DETECTED DN-NOT DETECTED [facility] (SARS-CoV-2) Comment: PCR This assay is designed to detect the S and/or ORF1ab genes of SARS-CoV-2 using nucleic acid amplification. A "Not Detected" result does not preclude the possibility of SARS-CoV-2 infection since the adequacy of sample collection and/or low viral burden may result in the presence of viral nucleic acids below the analytical sensitivity of this test method. Test results should be used along with other clinical and laboratory data in making the diagnosis. Test parameters have not been validated for screening in asymptomatic patients.This test has not been FDA cleared or approved. This test is authorized for use under the FDA Emergency Use Authorization and performance characteristics have been verified by the [facility]. Fact sheet for providers: https://www.fda.gov/media/2331 85/download Fact sheet for patients: https://www.fda.gov/media/3047 87/download Specimen Flocked Swab - Nasopharyngeal Performing Organization Address City/[facility]/ZIP Code P shane Number [facility] [address] [place] [address] * IRON + BINDING CAPACITY + %SAT+ FERRITIN (11/29/2020 10:40 AM CDT) Only the most recent of 2 results within the time period is included. Iron 23 (L) 50 - 160 MCG/DL [facility] Iron 331 270 - 380 MCG/DL [facility] Binding-TIBC % Saturation 7 (L) 28 - 42 % [facility] Ferritin 112 10 - 200 NG/ML [facility] Specimen Blood Performing Organization Address City/[facility] Code P shane Number [facility] [address] [place] [address] * PHOSPHORUS (11/29/2020 10:40 AM CDT) Only the most recent of 13 results within the time period is included. Phosphorus 2.7 2.0 - 4.5 MG/DL [facility] Specimen Performing Organization Address [facility] P shane Number [facility] [address] [phone] * TELEMETRY STRIPS-SCAN (11/29/2020 12:00 AM CDT) Narrative Performed At This result has an attachment that is n ot available. Ordered by an unspecified provider. * TELEMETRY STRIPS-SCAN (11/29/2020 12:00 AM CDT) Narrative Performed At This result has an attachment that is n ot available. Ordered by an unspecified provider. * TELEMETRY STRIPS-SCAN (11/29/2020 12:00 AM CDT) Narrative Performed At This result has an attachment that is n ot available. Ordered by an unspecified provider. * TELEMETRY STRIPS-SCAN (11/29/2020 12:00 AM CDT) Narrative Performed At This result has an attachment that is n ot available. Ordered by an unspecified provider. * TELEMETRY STRIPS-SCAN (11/29/2020 12:00 AM CDT) Narrative Performed At This result has an attachment that is n ot available. Ordered by an unspecified provider. * TELEMETRY STRIPS-SCAN (11/29/2020 12:00 AM CDT) Narrative Performed At This result has an attachment that is n ot available. Ordered by an unspecified provider. * TELEMETRY STRIPS-SCAN (11/29/2020 12:00 AM CDT) Narrative Performed At This result has an attachment that is n ot available. Ordered by an unspecified provider. * TELEMETRY STRIPS-SCAN (11/29/2020 12:00 AM CDT) Narrative Performed At This result has an attachment that is n ot available. Ordered by an unspecified provider. * TELEMETRY STRIPS-SCAN (11/29/2020 12:00 AM CDT) Narrative Performed At This result has an attachment that is n ot available. Ordered by an unspecified provider. * TELEMETRY STRIPS-SCAN (11/29/2020 12:00 AM CDT) Narrative Performed At This result has an attachment that is n ot available. Ordered by an unspecified provider. * TELEMETRY STRIPS-SCAN (11/29/2020 12:00 AM CDT) Narrative Performed At This result has an attachment that is n ot available. Ordered by an unspecified provider. * TELEMETRY STRIPS-SCAN (11/29/2020 12:00 AM CDT) Narrative Performed At This result has an attachment that is n ot available. Ordered by an unspecified provider. * TELEMETRY STRIPS-SCAN (11/29/2020 12:00 AM CDT) Narrative Performed At This result has an attachment that is n ot available. Ordered by an unspecified provider. * ECG-SCAN (11/29/2020 12:00 AM CDT) Narrative Performed At This result has an attachment that is n ot available. Ordered by an unspecified provider. * CBC (11/21/2020 9:39 AM CDT) Only the most recent of 21 results within the time period is included. White Blood 8.2 4.5 - 11.0 K/UL [facility] Cells RBC 2.84 (L) 4.0 - 5.0 M/UL [facility] Hemoglobin 8.9 (L) 12.0 - 15.0 GM/DL [facility] Hematocrit 26.6 (L) 36 - 45 % [facility] MCV 93.5 80 - 100 FL [facility] MCH 31.5 26 - 34 PG [facility] MCHC 33.7 32.0 - 36.0 G/DL [facility] RDW 18.4 (H) 11 - 15 % [facility] Platelet Count 404 (H) 150 - 400 K/UL [facility] MPV 6.4 (L) 7 - 11 FL [facility] Specimen Blood Performing Organization Address City/[facility]/ZIP Code P shane Number [facility] [address] [place] [address] * BNP POC ER (11/21/2020 8:32 AM CDT) BNP POC 806.0 (H) 0 - 100 PG/ML MAIN LAB Specimen Performing Organization Address City/[facility]/ZIP Code P shane Number MAIN LAB [address] [place] [address] * POC PT/INR (11/21/2020 8:24 AM CDT) Only the most recent of 2 results within the time period is included. INR POC 1.7 (H) 0.8 - 1.2 MAIN LAB Specimen Performing Organization Address City/[facility]/ZIP [facility] [place] [place] P shane Number MAIN LAB [address] [place] [address] * CULTURE-URINE W/SENSITIVITY (11/14/2020 5:35 PM CDT) Battery Name URINE CULTURE [facility] Report Status FINAL 11/17/2020 MAIN LAB Specimen URINE INDWELLING CATHETER [facility] Description Special NONE MAIN LAB Requests Culture >100,000 CFU/ml MAIN LAB ENTEROCOCCUS FAECIUM (A) Culture >100,000 CFU/ml MAIN LAB ENTEROCOCCUS FAECALIS (A) Specimen Urine - Indwelling Catheter Antibiotic Method Susceptibility Organism Nitrofurantoin INTERPRETATION, NEWMAN AGUILAR Resistant Enterococcus faecium Ampicillin CHELO (MCG/ML), INTERPRETATION, PHX >8: Resistant Enterococcus faecium Vancomycin CHELO (MCG/ML), INTERPRETATION, PHX <=0.5: Susceptible Enterococcus faecium Levofloxacin CHELO (MCG/ML), INTERPRETATION, PHX <=0.5: Susceptible Enterococcus faecium Tetracycline CHELO (MCG/ML), INTERPRETATION, PHX <=0.5: Susceptible Enterococcus faecium Daptomycin CHELO (MCG/ML), INTERPRETATION, PHX 4: Susceptible Enterococcus faecium Ampicillin CHELO (MCG/ML), INTERPRETATION, PHX 1: Susceptible Enterococcus faecalis Vancomycin CHELO (MCG/ML), INTERPRETATION, PHX 2: Susceptible Enterococcus faecalis Levofloxacin CHELO (MCG/ML), INTERPRETATION, PHX <=0.5: Susceptible Enterococcus faecalis Nitrofurantoin CHELO (MCG/ML), INTERPRETATION, PHX <=16: Susceptible Enterococcus faecalis Tetracycline CHELO (MCG/ML), INTERPRETATION, PHX <=0.5: Susceptible Enterococcus faecalis Daptomycin CHELO (MCG/ML), INTERPRETATION, PHX <=1: Susceptible Enterococcus faecalis Performing Organization Address City/[facility]/ZIP Code P shane Number MAIN LAB [address] [phone] * HEMOGLOBIN & HEMATOCRIT (11/14/2020 12:27 AM CDT) Only the most recent of 3 results within the time period is included. Hemoglobin 8.0 (L) 12.0 - 15.0 GM/DL MAIN LAB Hematocrit 23.7 (L) 36 - 45 % MAIN LAB Specimen Blood Performing Organization Address City/[facility]/ZIP Code P shane Number MAIN LAB [address] [place] [address] * HAPTOGLOBIN (11/09/2020 9:45 AM CDT) Haptoglobin <30 16 - 200 MG/DL MAIN LAB Specimen Blood Performing Organization Address City/[facility]/ZIP Code P shane Number MAIN LAB [address] [place] [address] * LDH-LACTATE DEHYDROGENASE (11/09/2020 5:43 AM CDT) Lactate 241 (H) 100 - 210 U/L MAIN LAB Dehydrogenase Specimen Performing Organization Address City/[facility] Code P shane Number MAIN LAB [address] [place] [address] * BILIRUBIN, DIRECT (11/09/2020 5:43 AM CDT) Bilirubin, 0.4 (H) <0.4 MG/DL MAIN LAB Direct Specimen Performing Organization Address [facility] Code P shane Number MAIN LAB [address] [place] [address] * PERIPHERAL SMEAR (11/08/2020 5:46 PM CDT) Peripheral NO QUALITATIVE MORPHOLOGIC [facility] MAIN LA B Smear ABNORMALITIES OF DIAGNOSTIC SIGNIFICANCE. Pathologist INTERPRETED BY JOHNIE BLACK RUTH N LAB Signature M.D. By the PATH SIGNATURE ABOVE, I attest that I have personally formulated the final interpretation expressed in this report and that the above diagnosis is based upon my examination of the slides and/or other material indicated in this report. Specimen Blood Performing Organization Address [facility] Code P shane Number MAIN LAB [address] [place] [address] * FIBRINOGEN (11/08/2020 5:46 PM CDT) Fibrinogen 347 200 - 400 MG/DL MAIN LAB Specimen Blood Performing Organization Address [facility] P shane Number MAIN LAB [address] [place] [address] * CT ABD/PELV WO CONTRAST (11/08/2020 5:28 PM CDT) Specimen Impressions Performed At 1. Interval coil embolization of the left inferior epigastric artery with [facility] stable to slight improvement in a left hemipelvis and rectus hematoma. 2. No bowel obstruction, inflammatory mass, or pneumoperitoneum. Small moderate simple abdominal and pelvic as cites. 3. Cirrhotic morphology of the liver. 4. Small dependent right pleural effu esther. By my electronic signature, I attest th at I have personally reviewed the images for this examination and formulated the interpretations and opinions expressed in this report Finalized by Wesley Suazo MD, PhD on 11/08/2020 9:53 PM. Dictated by Blair Terry D.O. on 11/08/2020 9:33 PM. Narrative Performed At CT ABDOMEN AND PELVIS [facility] Clinical Indication: Left flank/hip h ematoma. Hematuria. Technique: Multiple contiguous axial CT images were obtained through the abdomen and pelvis without IV contrast. Post pr ocessing coronal and sagittal reconstruction images were made from th e axial images. IV contrast: None. Bowel contrast: None Comparison: CTA chest abdomen pelvis 01/[address] abdomen 11/04/2020. FINDINGS: Limited evaluation without the use of I V contrast which includes the viscera and vasculature. Lower Thorax: Mild cardiomegaly. Partia l evaluation of prior aortic valve replacement. Mild calcification of the mitral valve annulus. Low-attenuation of the intracardiac blood pool which can b e seen with anemia. Small right pleural effusion with adjacent atelectasis. Liver and Biliary system: The unopacifi ed liver is normal in size with slightly nodular contour consistent with cirrhos is. The gallbladder is thin walled and not distended without radiopaque gallst ones. No biliary ductal dilation. Spleen: Unremarkable. Adrenal Glands and Kidneys: The adrenal glands are unremarkable. No hydronephrosis or nephrolithiasis. Pancreas and Retroperitoneum: The pancr eas is unremarkable. No retroperitoneal lymphadenopathy. Aorta and Major Vessels: Normal caliber abdominal aorta. Bowel, Mesentery and Peritoneal space: The large and small bowel are normal caliber. Hyperdensity at the junction o f the descending colon and sigmoid colon may be ingested material. Moderate mese nteric edema and small volume abdominopelvic ascites. No pneumoperito neum. Pelvis: The urinary bladder is decompre ssed around a Trevino catheter. Redemonstration of a heterogeneous locu lated predominantly extraperitoneal hemorrhage along left hemipelvis and ad jacent to embolization coils in the region of the inferior epigastric arter ies measuring 9.6 x 7.3 cm (series 2 image 80), previously measuring 11.0 x 7.0 cm when measured in a similar fashion. No pelvic lymphadenopathy. Sub tle high attenuation along the right margin urinary bladder likely accumulat ion of small volume extraperitoneal contrast. Abdominal wall and Osseous Structures: Embolization coils in the region of the inferior epigastric vessels. Redemonstr ation of a left rectus hematoma which measures 7.5 x 4.5 x 10.8 cm (series 2 image 75 and series 602 image 112), previously measuring 8.0 x 5.0 x 12.5 c m when measured in a similar fashion. Bilateral pars defects of L5. No destru ctive osseous lesions. Prior median sternotomy. Mild body wall edema. Procedure Note Interface, Radiant Results - 11/08/2020 9:[address] ABDOMEN AND PELVIS Clinical Indication: Left flank/hip hematoma. Hematuria. Technique: Multiple contiguous axial CT images were obtained through the abdomen and pelvis without IV contrast. Post processing coronal and sagittal reconstruction images were made from the axial images. IV contrast: None. Bowel contrast: None Comparison: CTA chest abdomen pelvis 06/01/[address] abdomen 11/04/2020. FINDINGS: Limited evaluation without the use of IV contrast which includes the viscera and vasculature. Lower Thorax: Mild cardiomegaly. Partial evaluation of prior aortic valve replacement. Mild calcification of the mitral valve annulus. Low-attenuation of the intracardiac blood pool which can be seen with anemia. Small right pleural effusion with adjacent atelectasis. Liver and Biliary system: The unopacified liver is normal in size with slightly nodular contour consistent with cirrhosis. The gallbladder is thin walled and not distended without radiopaque gallstones. No biliary ductal dilation. Spleen: Unremarkable. Adrenal Glands and Kidneys: The adrenal glands are unremarkable. No hydronephrosis or nephrolithiasis. Pancreas and Retroperitoneum: The pancreas is unremarkable. No retroperitoneal lymphadenopathy. Aorta and Major Vessels: Normal caliber abdominal aorta. Bowel, Mesentery and Peritoneal space: The large and small bowel are normal caliber. Hyperdensity at the junction of the descending colon and sigmoid colon may be ingested material. Moderate mesenteric edema and small volume abdominopelvic ascites. No pneumoperitoneum. Pelvis: The urinary bladder is decompressed around a Trevino catheter. Redemonstration of a heterogeneous loculated predominantly extraperitoneal hemorrhage along left hemipelvis and adjacent to embolization coils in the region of the inferior epigastric arteries measuring 9.6 x 7.3 cm (series 2 image 80), previously measuring 11.0 x 7.0 cm when measured in a similar fashion. No pelvic lymphadenopathy. Subtle high attenuation along the right margin urinary bladder likely accumulation of small volume extraperitoneal contrast. Abdominal wall and Osseous Structures: Embolization coils in the region of the inferior epigastric vessels. Redemonstration of a left rectus hematoma which measures 7.5 x 4.5 x 10.8 cm (series 2 image 75 and series 602 image 112), previously measuring 8.0 x 5.0 x 12.5 cm when measured in a similar fashion. Bilateral pars defects of L5. No destructive osseous lesions. Prior median sternotomy. Mild body wall edema. IMPRESSION 1. Interval coil embolization of the le ft inferior epigastric artery with stable to slight improvement in a left hemipelvis and rectus hematoma. 2. No bowel obstruction, inflammatory m ass, or pneumoperitoneum. Small moderate simple abdominal and pelvic ascites. 3. Cirrhotic morphology of the liver. 4. Small dependent right pleural effusi on. By my electronic signature, I attest that I have personally reviewed the images for this examination and formulated the interpretations and opinions expressed in this report Finalized by Wesley Suazo MD, PhD on 11/08/2020 9:53 PM. Dictated by Blair Terry D.O. on 11/08/2020 9:33 PM. Performing Organization Address City/State/ZIP Code P shane Number [facility] * CT LOWER EXTREM WO CONT BILAT (11/08/2020 5:28 PM CDT) Specimen Bilateral Impressions Performed At 1. Please refer to same day CT abdomen and pelvis f or further discussion of [facility] pelvic mesenteric and peritoneal findin gs. Nonspecific bilateral lower extremity superficial soft tissue edema. 2. 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 By my electronic signature, I attest th at I have personally reviewed the images for this examination and formulated the interpretations and opinions expressed in this report Finalized by Wesley Suazo MD, PhD on 11/08/2020 9:49 PM. Dictated by Blair Terry D.O. on 11/08/2020 9:30 PM. Narrative Performed At CT LOWER EXTREM WO CONT BILAT [facility] Technique: Multiple sequential axial im ages were obtained through the bilateral lower extremities without IV contrast. Postprocessing was performed and coronal and sagittal reformatted images were ob tained from the source axial data. Clinical indication: Hematoma. Comparison: Same day CT abdomen pelvis Findings: Bones and joints: No acute fracture or destructive osseous lesion. Mild bilateral hip arthrosis and arthrosis o f the pubic symphysis with subtle calcification present. Soft tissues: No loculated fluid collec tion or soft tissue mass identified. Nonspecific superficial soft tissue rubi ma bilaterally. Other: Please refer to same day CT abdo men and pelvis for further discussion of pelvic mesenteric and peritoneal findin gs. Mild calcific atherosclerosis of the bilateral superficial femoral arteries. Evaluation for vascular stenosis is limited in the absence of IV contrast. Procedure Note Interface, Radiant Results - 11/08/2020 9:[address] LOWER EXTREM WO CONT BILAT Technique: Multiple sequential axial images were obtained through the bilateral lower extremities without IV contrast. Postprocessing was performed and coronal and sagittal reformatted images were obtained from the source axial data. Clinical indication: Hematoma. Comparison: Same day CT abdomen pelvis Findings: Bones and joints: No acute fracture or destructive osseous lesion. Mild bilateral hip arthrosis and arthrosis of the pubic symphysis with subtle calcification present. Soft tissues: No loculated fluid collection or soft tissue mass identified. Nonspecific superficial soft tissue edema bilaterally. Other: Please refer to same day CT abdomen and pelvis for further discussion of pelvic mesenteric and peritoneal findings. Mild calcific atherosclerosis of the bilateral superficial femoral arteries. Evaluation for vascular stenosis is limited in the absence of IV contrast. IMPRESSION 1. Please refer to same day CT abdomen and pelvis for further discussion of pelvic mesenteric and peritoneal findings. Nonspecific bilateral lower extremity superficial soft tissue edema. 2. Mild bilateral hip arthrosis and art hrosis of the pubic symphysis with calcifications present which can be seen with CPPD arthrosis. By my electronic signature, I attest that I have personally reviewed the images for this examination and formulated the interpretations and opinions expressed in this report Finalized by Wesley Suazo MD, PhD on 11/08/2020 9:49 PM. Dictated by Blair Terry D.O. on 11/08/2020 9:30 PM. Performing Organization Address City/State/ZIP Code P shane Number [facility] * TRANSFUSE RBC'S (11/06/2020 7:36 PM CDT) Only the most recent of 6 results within the time period is included. Specimen Blood * URINE HGB FOR TRANFUSION REACTION (11/06/2020 9:05 AM CDT) Urine Hgb on 2+ [facility] Transfusion RX Specimen Urine Performing Organization Address City/[facility] Code P shane Number [facility] [address] [phone] * URINALYSIS, MICROSCOPIC (11/06/2020 9:05 AM CDT) WBCs,UA PACKED 0 - 2 /HPF [facility] RBCs,UA PACKED 0 - 3 /HPF [facility] Specimen Urine - Urine Performing Organization Address [facility] P shane Number [facility] [address] [phone] * URINALYSIS DIPSTICK (11/06/2020 9:05 AM CDT) Color,UA RED [facility] Turbidity,UA CLEAR CLEAR-CLEAR [facility] Specific 1.037 (H) 1.003 - 1.035 [facility] [place]-Urine pH,UA 6.0 5.0 - 8.0 [facility] Protein,UA 3+ (A) NEG-NEG [facility] Glucose,UA NEG NEG-NEG [facility] Ketones,UA NEG NEG-NEG [facility] Bilirubin,UA NEG NEG-NEG [facility] Blood,UA 3+ (A) NEG-NEG [facility] Urobilinogen,UA NORMAL NORM-NORMAL [facility] Nitrite,UA NEG NEG-NEG [facility] Leukocytes,UA NEG NEG-NEG [facility] Urine Ascorbic NEG NEG-NEG [facility] Acid, UA Specimen Urine - Urine Performing Organization Address [facility] P shane Number [facility] [address] [phone] * POC GLUCOSE (11/06/2020 7:43 AM CDT) Only the most recent of 2 results within the time period is included. Glucose, POC 158 (H) 70 - 100 MG/DL [facility] Specimen Performing Organization Address [facility] Code P shane Number [facility] [address] [phone] * IR MESENTERIC ARTERIOGRAM DIAGNOSTIC (11/06/2020 5:50 AM CDT) Specimen Addenda Addendum by Blair Greene MD on 11/20/2020 8:34 AM Finalized by Blair Greene M.D. on 11/06/2020 9:41 AM. Dictated by Beth Almaguer M.D. on 11/06/2020 6:57 AM.Addendum: The second paragraph of the procedure section should read as follows: The patient was placed in supine position on the angiography table and the right groin was prepped and draped in sterile fashion. The skin and subcutaneous tissue overlying the right common femoral artery were infiltrated with 2% lidocaine for local anesthetic. Ultrasound of the right groin was performed demonstrating patency of the right common femoral artery. Under ultrasound guidance, the artery was accessed with a micropuncture needle. Needle entering the vessel was documented and sent to PACS. A 0.018" wire was advanced through the needle into the artery. The needle was exchanged for a 4 Trin[place] transitional catheter. The inner dilator and the 0.018 wire were removed and a 0.035 Bentson wire was advanced into the artery. The transitional catheter was exchanged for 5 Trinidadian vascular sheath, attached to a heparinized pressurized bag of saline. The fifth paragraph of the procedure section should read as follows: A series of 3 mm detachable coils and pod packing coils were deployed in the inferior epigastric artery. Hemostasis was achieved. The microcatheter was repositioned into a SECOND, MORE MEDIAL second order branch of the left inferior epigastric artery. Contrast injection confirmed location with areas of active extravasation. The vessel was then embolized using a 30 cm POD packing coil. The primary left inferior epigastric artery was then embolized using a series of 3 mm Nomi and 4 mm ansley coils. A post embolization arteriogram demonstrated no further antegrade flow in this vessel. Finalized by Blair Greene M.D. on 11/20/2020 8:31 AM. Dictated by Blair Greene M.D. on 11/20/2020 8:26 AM. Impressions Performed At 1. Successful embolization of the left inferior epi gastric artery with [facility] RES[facility] hemostasis achieved. 2. 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 Blair Toribio M.D, the attending r adiologist, was present for the critical and turpin portions of the procedure with a midlevel, resident, and/or fellow participating. Overlapping portions w ere non turpin and I was present. I interpret the critical and turpin portion of this procedure to have been angiogram with embolization. @TT By my electronic signature, I attest th at I have personally reviewed the images for this examination and formulated the interpretations and opinions expressed in this report Narrative Performed At PROCEDURE: [facility]U RAD RESULTS 1. Mesenteric/abdominal arteriogram 2. Successful embolization of the left inferior epigastric artery. CLINICAL INDICATION: Nontraumatic rectu s hematoma, acute anemia, history of cirrhosis. OPERATING PHYSICIAN: Rogelio Mckeon and Meliza Almaguer M.D. ACCESS SITE: Right common femoral arter y. MEDICATIONS: I was personally responsib le for the administration of moderate sedation services during the procedure performed and I confirm requirements described in CPT section on moderate se dation were followed, including the use of an independent trained observer who had no other duties during the procedure. See nursing log for complete details; t he drugs utilized were: Versed IV. CONTRAST: 95 cc' s Omnipaque-300 FLUOROSCOPY TIME: 308 mGy COMPLICATIONS: None. PROCEDURE: The risks, benefits, and alternatives t o the procedure and sedation were explained to the patient, and written i nformed consent obtained. The patient was placed in supine positi on on the angiography table, and the right groin was prepped and draped in s terile fashion. The skin and subcutaneous tissue overlying the right common femoral artery were infiltrated with 2% lidocaine for local anesthetic. Using ultrasound guidance, the right common femoral artery was punctured usi ng a micropuncture needle. A 0.118 a wire was advanced through the needle into th e artery. A dermatotomy was made with an 11 blade scalpel. The needle was exchan ged for a 5 Trinidadian transitional catheter. The inner dilator and the 0.018 wire we re removed and a 0.035 Bentson wire was advanced into the artery. Through the m icrocatheter a Bentson wire was advanced into the abdominal aorta. The microcath eter was withdrawn and exchanged for a 6 Trinidadian sheath. The sheath was attached to a continuous heparinized saline infusion. A 5 Trinidadian Omni Flush catheter was adva nced to the level of the aortic bifurcation. Digital subtraction pelvic arteriogram was performed. This demonstrated patency of the distal abdo ovi aorta, bilateral common, internal and external iliac arteries. Small fo ci of active extravasation are seen in the left lower quadrant. Next, a Glidew marsha and JB1 catheter were used to select the left external iliac artery. The 5 f rench catheter was advanced over the wire and a hand injected arteriogram was per formed. This demonstrate patency of the left external iliac artery and common i liac artery. There is active extravasation arising from left inferio r epigastric artery branches. The Omni flush catheter was exchanged f or a 5 Trinidadian JAYLIN 1 catheter over a Bentson wire. The JAYLIN 1 catheter was adv anced into the left inferior epigastric artery. Digital subtraction angiography was performed which showed areas of active extravasation from several small branch vessels. Next, a 2.8 Trinidadian microcatheter was advanced in a coaxial fashion and utilized to select the left inferior epigastric artery. A select ar teriogram was performed demonstrating patency of the left inferior epigastric artery with contrast extravasation. The microcatheter was subselectively advanc ed distally into the third order branches of the left inferior epigastric artery. Contrast injection confirmed location. A series of 3 mm detachable coils and p od packing coils were deployed in the inferior epigastric artery. Hemostasis was achieved. The microcatheter was repositioned into a more medial second order branch of the left inferior epigastric artery. Contrast injection c onfirmed location with areas of active extravasation. The vessel was then embo lized using a 30 cm POD packing coil. The primary left inferior epigastric artery was then embolized using a series of 3 mm Nomi and 4 mm ansley coils. A post e mbolization arteriogram demonstrated no further antegrade flow in this vessel. The JAYLIN 1 catheter was repositioned in t he left internal iliac artery. Digital subtraction angiography was performed s howing conventional branching anatomy and vessel caliber. No active extravasation . A right femoral sheath arteriogram was performed demonstrating an arteriovenous fistula below the level of the femoral sheath placement. Sheath placement was adequate and an Angio-Seal device succe ssfully deployed in the right groin. Hemostasis was achieved. A sterile gauz e and Tegaderm dressing was applied. Patient tolerated the procedure well an d left the department in stable condition. Procedure Note Interface, Radiant Results - 11/20/2020 8:34 AM CDT PROCEDURE: 1. Mesenteric/abdominal arteriogram 2. Successful embolization of the left i nferior epigastric artery. CLINICAL INDICATION: Nontraumatic rectus hematoma, acute anemia, history of cirrhosis. OPERATING PHYSICIAN: Blair Greene M.D. and Meliza Almaguer M.D. ACCESS SITE: Right common femoral artery. MEDICATIONS: I was personally responsible for the administration of moderate sedation services during the procedure performed and I confirm requirements described in CPT section on moderate sedation were followed, including the use of an independent trained observer who had no other duties during the procedure. See nursing log for complete details; the drugs utilized were: Versed IV. CONTRAST: 95 cc' s Omnipaque-300 FLUOROSCOPY TIME: 308 mGy COMPLICATIONS: None. PROCEDURE: The risks, benefits, and alternatives to the procedure and sedation were explained to the patient, and written informed consent obtained. The patient was placed in supine position on the angiography table, and the right groin was prepped and draped in sterile fashion. The skin and subcutaneous tissue overlying the right common femoral artery were infiltrated with 2% lidocaine for local anesthetic. Using ultrasound guidance, the right common femoral artery was punctured using a micropuncture needle. A 0.118 a wire was advanced through the needle into the artery. A dermatotomy was made with an 11 blade scalpel. The needle was exchanged for a 5 Trinidadian transitional catheter. The inner dilator and the 0.018 wire were removed and a 0.035 Bentson wire was advanced into the artery. Through the microcatheter a Bentson wire was advanced into the abdominal aorta. The microcatheter was withdrawn and exchanged for a 6 Trinidadian sheath. The sheath was attached to a continuous heparinized saline infusion. A 5 Trinidadian Omni Flush catheter was advanced to the level of the aortic bifurcation. Digital subtraction pelvic arteriogram was performed. This demonstrated patency of the distal abdominal aorta, bilateral common, internal and external iliac arteries. Small foci of active extravasation are seen in the left lower quadrant. Next, a Glidewire and JB1 catheter were used to select the left external iliac artery. The 5 emirati catheter was advanced over the wire and a hand injected arteriogram was performed. This demonstrate patency of the left external iliac artery and common iliac artery. There is active extravasation arising from left inferior epigastric artery branches. The Omni flush catheter was exchanged for a 5 Trinidadian JAYLIN 1 catheter over a Bentson wire. The JAYLIN 1 catheter was advanced into the left inferior epigastric artery. Digital subtraction angiography was performed which showed areas of active extravasation from several small branch vessels. Next, a 2.8 Trinidadian microcatheter was advanced in a coaxial fashion and utilized to select the left inferior epigastric artery. A select arteriogram was performed demonstrating patency of the left inferior epigastric artery with contrast extravasation. The microcatheter was subselectively advanced distally into the third order branches of the left inferior epigastric artery. Contrast injection confirmed location. A series of 3 mm detachable coils and pod packing coils were deployed in the inferior epigastric artery. Hemostasis was achieved. The microcatheter was repositioned into a more medial second order branch of the left inferior epigastric artery. Contrast injection confirmed location with areas of active extravasation. The vessel was then embolized using a 30 cm POD packing coil. The primary left inferior epigastric artery was then embolized using a series of 3 mm Nomi and 4 mm ansley coils. A post embolization arteriogram demonstrated no further antegrade flow in this vessel. The JAYLIN 1 catheter was repositioned in the left internal iliac artery. Digital subtraction angiography was performed showing conventional branching anatomy and vessel caliber. No active extravasation. A right femoral sheath arteriogram was performed demonstrating an arteriovenous fistula below the level of the femoral sheath placement. Sheath placement was adequate and an Angio-Seal device successfully deployed in the right groin. Hemostasis was achieved. A sterile gauze and Tegaderm dressing was applied. Patient tolerated the procedure well and left the department in stable condition. IMPRESSION 1. Successful embolization of the left inferior epigastric artery with hemostasis achieved. 2. 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 Blair Toribio M.D, the attending radiologist, was present for the critical and turpin portions of the procedure with a midlevel, resident, and/or fellow participating. Overlapping portions were non turpin and I was present. I interpret the critical and turpin portion of this procedure to have been angiogram with embolization. @TT By my electronic signature, I attest that I have personally reviewed the images for this examination and formulated the interpretations and opinions expressed in this report Performing Organization Address City/State/ZIP Code P shane Number KU RAD RESULTS * TEG WITH KAOLIN (11/06/2020 3:49 AM CDT) MA Kaolin 70.8 >49.9 MM REFERENCE LAB R Kaolin 2.9 <9.1 MIN REFERENCE LAB RK Kaolin 3.7 <12.1 MIN REFERENCE LAB K Kaolin 0.8 <3.1 MIN REFERENCE LAB Angle Kaolin 80.7 >54.9 DEG REFERENCE LAB Lysis30 0.3 <8.1 % REFERENCE LAB Specimen Blood Performing Organization Address [facility] P shane Number REFERENCE LAB REFERENCE LAB See results for address. * PTT (APTT) (11/06/2020 3:49 AM CDT) Only the most recent of 7 results within the time period is included. APTT 29.6 24.0 - 36.5 SEC [facility] Specimen Blood Performing Organization Address [facility] P shane Number [facility] MAIN [facility] [address] [phone] * TRANSFUSION REACTION EVALUATION (11/06/2020 3:28 AM CDT) Clerical Check NO ERRORS DETECTED [facility] Pre Trans Spec NO VISIBLE HEMOLYSIS [facility] Appearance Post Trans Spec NO VISIBLE HEMOLYSIS [facility] Appearance ABO/RH(D) O POS [facility] PHONG, Broad NEG [facility] Spectrum Melanie Hemoglobin on 2+ [facility] Urine Supernate Path Symptoms most likely due to [facility] AB Interpretation underlying diseaseComment: of Reaction Report Available in [facility] Pathology INTERPRETED BY CHIKI HUYNH M.D. [facility] Signature By the PATH SIGNATURE ABOVE , I attest that I have personally formulated the final interpretation expressed in this report and that the above diagnosis is based upon my examination of the slides and/or other material indicated in this report. Specimen Midstream Narrative Performed At This result has an attachment that is n ot available. Performing Organization Address [facility] P shane Number [facility] [address] [place] [address] * POC LACTATE (11/06/2020 3:12 AM CDT) LACTIC ACID POC 4.0 (HH) 0.5 - 2.0 MMOL/L [facility] Specimen Performing Organization Address [facility] P shane Number [facility] [address] [place] [address] * LACTIC ACID(LACTATE) (11/05/2020 5:46 AM CDT) Only the most recent of 3 results within the time period is included. Lactic Acid 0.8 0.5 - 2.0 MMOL/L [facility] Specimen Blood Performing Organization Address [facility] P shane Number [facility] [address] [place] [address] * FREE T4-FREE THYROXINE (11/04/2020 8:40 PM CDT) T4-Free 1.1 0.6 - 1.6 NG/DL [facility] Specimen Performing Organization Address City/State/ZIP Code P shane Number [facility] [address] [place] [address] * TSH WITH FREE T4 REFLEX (11/04/2020 8:40 PM CDT) TSH 10.59 (H) 0.35 - 5.00 MCU/ML [facility] Specimen Blood Performing Organization Address City/[facility]/ZIP Code P shane Number [facility] [address] [place] [address] * TYPE & CROSSMATCH (11/04/2020 8:40 PM CDT) Only the most recent of 2 results within the time period is included. Units Ordered 7 [facility] Crossmatch 11/07/2020,2359 [facility] Expires Record Check FOUND [facility] ABO/RH(D) O POS [facility] Antibody Screen NEG [facility] Electronic YES [facility] Crossmatch Unit Number [id number] [facility] Blood Component RBC,ADSOL,LEUKO REDUCED [facility] Type Unit Division 00 [facility] Status OF Unit TRANSFUSED [facility] ISSUE DATE TIME [id number] [facility] PRODUCT CODE [id number] [facility] BLOOD TYPE O POS [facility] CODING STATUS 5100 [facility] BLOOD [id number] [facility] EXPIRATION DATE Transfusion OK TO TRANSFUSE [facility] Status Crossmatch COMPATIBLE,ELECTRONIC [facility] Result Unit Number [id number] [facility] Blood Component RBC,ADSOL,LEUKO REDUCED [facility] Type Unit Division 00 [facility] Status OF Unit TRANSFUSED [facility] ISSUE DATE TIME [id number] [facility] PRODUCT CODE [id number] [facility] BLOOD TYPE O POS [facility] CODING STATUS 5100 [facility] BLOOD [id number] [facility] EXPIRATION DATE Transfusion OK TO TRANSFUSE [facility] Status Crossmatch COMPATIBLE,ELECTRONIC [facility] Result Unit Number [id number] [facility] Blood Component RBC,ADSOL,LEUKO REDUCED [facility] Type Unit Division 00 [facility] Status OF Unit TRANSFUSED [facility] ISSUE DATE TIME [facility] PRODUCT CODE [id number] [facility] BLOOD TYPE O POS [facility] CODING STATUS 5100 [facility] BLOOD [id number] [facility] EXPIRATION DATE Transfusion OK TO TRANSFUSE [facility] Status Crossmatch COMPATIBLE,ELECTRONIC [facility] Result Unit Number [id number] [facility] Blood Component RBC,ADSOL,LEUKO REDUCED,1ST [facility] AB Type CONT. Unit Division 00 [facility] Status OF Unit TRANSFUSED [facility] ISSUE DATE TIME [facility] PRODUCT CODE [id number] [facility] BLOOD TYPE O POS [facility] CODING STATUS 5100 [facility] BLOOD [id number] [facility] EXPIRATION DATE Transfusion OK TO TRANSFUSE [facility] Status Crossmatch COMPATIBLE,ELECTRONIC [facility] Result Unit Number [id number] [facility] Blood Component RBC,ADSOL,LEUKO REDUCED,1ST [facility] L AB Type CONT. Unit Division 00 [facility] Status OF Unit TRANSFUSED [facility] ISSUE DATE TIME [facility] PRODUCT CODE [id number] [facility] BLOOD TYPE O POS [facility] CODING STATUS 5100 [facility] BLOOD [id number] [facility] EXPIRATION DATE Transfusion OK TO TRANSFUSE [facility] Status Crossmatch COMPATIBLE,ELECTRONIC [facility] Result Specimen Blood,Peripheral Performing Organization Address City/State/ZIP Code P shane Number MAIN LAB [address] [place] [address] * TELEMETRY STRIPS-SCAN (11/04/2020 12:00 AM CDT) Narrative Performed At This result has an attachment that is n ot available. Ordered by an unspecified provider. * TELEMETRY STRIPS-SCAN (11/04/2020 12:00 AM CDT) Narrative Performed At This result has an attachment that is n ot available. Ordered by an unspecified provider. * TELEMETRY STRIPS-SCAN (11/04/2020 12:00 AM CDT) Narrative Performed At This result has an attachment that is n ot available. Ordered by an unspecified provider. * TELEMETRY STRIPS-SCAN (11/04/2020 12:00 AM CDT) Narrative Performed At This result has an attachment that is n ot available. Ordered by an unspecified provider. * TELEMETRY STRIPS-SCAN (11/04/2020 12:00 AM CDT) Narrative Performed At This result has an attachment that is n ot available. Ordered by an unspecified provider. * TELEMETRY STRIPS-SCAN (11/04/2020 12:00 AM CDT) Narrative Performed At This result has an attachment that is n ot available. Ordered by an unspecified provider. * TELEMETRY STRIPS-SCAN (11/04/2020 12:00 AM CDT) Narrative Performed At This result has an attachment that is n ot available. Ordered by an unspecified provider. * TELEMETRY STRIPS-SCAN (11/04/2020 12:00 AM CDT) Narrative Performed At This result has an attachment that is n ot available. Ordered by an unspecified provider. * TELEMETRY STRIPS-SCAN (11/04/2020 12:00 AM CDT) Narrative Performed At This result has an attachment that is n ot available. Ordered by an unspecified provider. * TELEMETRY STRIPS-SCAN (11/04/2020 12:00 AM CDT) Narrative Performed At This result has an attachment that is n ot available. Ordered by an unspecified provider. * TELEMETRY STRIPS-SCAN (11/04/2020 12:00 AM CDT) Narrative Performed At This result has an attachment that is n ot available. Ordered by an unspecified provider. * TELEMETRY STRIPS-SCAN (11/04/2020 12:00 AM CDT) Narrative Performed At This result has an attachment that is n ot available. Ordered by an unspecified provider. * TELEMETRY STRIPS-SCAN (11/04/2020 12:00 AM CDT) Narrative Performed At This result has an attachment that is n ot available. Ordered by an unspecified provider. * TELEMETRY STRIPS-SCAN (11/04/2020 12:00 AM CDT) Narrative Performed At This result has an attachment that is n ot available. Ordered by an unspecified provider. * TELEMETRY STRIPS-SCAN (11/04/2020 12:00 AM CDT) Narrative Performed At This result has an attachment that is n ot available. Ordered by an unspecified provider. * TELEMETRY STRIPS-SCAN (11/04/2020 12:00 AM CDT) Narrative Performed At This result has an attachment that is n ot available. Ordered by an unspecified provider. * TELEMETRY STRIPS-SCAN (11/04/2020 12:00 AM CDT) Narrative Performed At This result has an attachment that is n ot available. Ordered by an unspecified provider. * TELEMETRY STRIPS-SCAN (11/04/2020 12:00 AM CDT) Narrative Performed At This result has an attachment that is n ot available. Ordered by an unspecified provider. * TELEMETRY STRIPS-SCAN (11/04/2020 12:00 AM CDT) Narrative Performed At This result has an attachment that is n ot available. Ordered by an unspecified provider. * TELEMETRY STRIPS-SCAN (11/04/2020 12:00 AM CDT) Narrative Performed At This result has an attachment that is n ot available. Ordered by an unspecified provider. * TELEMETRY STRIPS-SCAN (11/04/2020 12:00 AM CDT) Narrative Performed At This result has an attachment that is n ot available. Ordered by an unspecified provider. * TELEMETRY STRIPS-SCAN (11/04/2020 12:00 AM CDT) Narrative Performed At This result has an attachment that is n ot available. Ordered by an unspecified provider. * TELEMETRY STRIPS-SCAN (11/04/2020 12:00 AM CDT) Narrative Performed At This result has an attachment that is n ot available. Ordered by an unspecified provider. * TELEMETRY STRIPS-SCAN (11/04/2020 12:00 AM CDT) Narrative Performed At This result has an attachment that is n ot available. Ordered by an unspecified provider. * TELEMETRY STRIPS-SCAN (11/04/2020 12:00 AM CDT) Narrative Performed At This result has an attachment that is n ot available. Ordered by an unspecified provider. * TELEMETRY STRIPS-SCAN (11/04/2020 12:00 AM CDT) Narrative Performed At This result has an attachment that is n ot available. Ordered by an unspecified provider. * TELEMETRY STRIPS-SCAN (11/04/2020 12:00 AM CDT) Narrative Performed At This result has an attachment that is n ot available. Ordered by an unspecified provider. * TELEMETRY STRIPS-SCAN (11/04/2020 12:00 AM CDT) Narrative Performed At This result has an attachment that is n ot available. Ordered by an unspecified provider. * ECG-SCAN (11/04/2020 12:00 AM CDT) Narrative Performed At This result has an attachment that is n ot available. Ordered by an unspecified provider. * ECG-SCAN (11/04/2020 12:00 AM CDT) Narrative Performed At This result has an attachment that is n ot available. Ordered by an unspecified provider. * ALPHA FETO PROTEIN (AFP) (10/25/2020 6:05 AM CDT) Alpha Feto 1.4 0.0 - 15.0 NG/ML MAIN LAB Protein Specimen Blood Performing Organization Address City/State/ZIP Code P shane Number MAIN LAB [address] [place] [address] * EGD REPORT (10/21/2020 9:59 PM CDT) Provation Patient Name: Khurram SPARKS OTHER Report Procedure Date: 10/21/2020 9:59 RESULT S PM CSN: [id number] Date of : 1960 Gender: Female Attending Physician: Cosmo Gomez MD Procedure: Upper GI endoscopy Indications: Hematochezia Providers: Cosmo Gomez MD (Doctor), Jesus Senior (Fellow), Sarah Sapp (Nurse), Omid Brooke Public Weigher (Public Weigher) Referring Physician: Cosmo Gomez MD Medications: Monitored [...] 6 seconds Procedure Code(s): --- Professional --- 60166, Esophagogastroduodenoscopy, flexible, transoral; diagnostic, including collection of specimen(s) by brushing or washing, when performed (separate procedure) Diagnosis Code(s): --- Professional --- K22.8, Other specified diseases of esophagus K92.1, Melena (includes Hematochezia) CPT copyright 2020 [employer]. All rights reserved. The codes documented in this report are preliminary and upon director of housing review may be revised to meet current [...] Date: 10/21/2020 9:34 RESULT S PM CSN: [id number] Date of : 1960 Gender: Female Attending Physician: Cosmo Gomez MD Procedure: Flexible Sigmoidoscopy Indications: Hematochezia Providers: Cosmo Gomez MD (Doctor), Sarah Sapp (Nurse), Omid Brooke, Public Weigher (Public Weigher), Jesus Senior (Fellow) Referring Physician: Cosmo Gomez [...] 40 seconds Procedure Code(s): --- Professional --- 79078, Sigmoidoscopy, flexible; with control of bleeding, any method Diagnosis Code(s): --- Professional --- K55.21, Angiodysplasia of colon with hemorrhage K92.1, Melena (includes Hematochezia) CPT copyright 2020 [employer]. All rights reserved. The codes documented in this report are preliminary and upon director of housing review may be revised to meet current [...] Units Ordered 1 MAIN LAB Unit Number [id number] MAIN LAB Blood Component THAWED PLASMA [facility] MAIN LAB Type Unit Division 00 MAIN LAB Status OF Unit TRANSFUSED [facility] MAIN LAB ISSUE DATE TIME [id number] MAIN LAB PRODUCT CODE [id number] MAIN LAB BLOOD TYPE O POS MAIN LAB CODING STATUS 5100 MAIN LAB BLOOD [id number] MAIN LAB EXPIRATION DATE Transfusion OK TO TRANSFUSE [facility] MAIN LAB Status Specimen Other (Specify) Performing Organization Address City/[facility]/ZIP Code P shane Number MAIN LAB [address] [place] [address] * TROPONIN-I (10/21/2020 9:50 AM CDT) Only the most recent of 3 results within the time period is included. Troponin-I 0.04 0.0 - 0.05 NG/ML MAIN LAB Specimen Blood Performing Organization Address City/[facility]/ZIP [facility] [place] [place] P shane Number MAIN LAB [address] [place] [address] * BLOOD TYPE CONFIRMATION - ORDER ONLY IF REQUESTED BY LAB (10/20/2020 11:54 AM CDT) ABO/RH(D) O POS MAIN LAB Specimen Bowel Contents Performing Organization Address City/[facility] Code P shane Number MAIN LAB [address] [place] [address] * BLUE TOP TUBE (10/20/2020 9:07 AM CDT) Specimen Performing Organization Address City/[facility] P shane Number LAB RESULTS * TELEMETRY [...] Ordered by an unspecified provider. * ECG-SCAN (10/12/2020 12:00 AM CDT) Narrative Performed At This result has an attachment that is n ot available. Ordered by an unspecified provider. * OUTSIDE PATHOLOGY CONSULT (09/20/2020 9:42 AM CDT) PATHOLOGY [facility] [email or web address] Department of Pathology and Laboratory Medicine [address] [place] [address] Surgical Pathology Office: [phone] PATHOLOGY CONSULTATION NAME: ZARIA PAULSON SURG PATH #: [id number] MR #: [id number] ALT ID #: LOCATION: [facility] DATE OF PROCEDURE: 09/20/2020 AGE: 60 SEX: F DATE RECEIVED: 09/20/2020 : 1960 TIME RECEIVED: 09:42 PHYSICIAN: ORQUIDEA DOE MD DATE OF REPORT: 09/20/2020 COPY TO: DATE OF PRINTIN09/20/2020 OUTSIDE INSTITUTION: [facility] Department of Pathology [address] [place] [id number] ############################## ############################## ############ Final Diagnosis: A. Outside case "[id number]" (Date Collected: 07/14/2016): 2. Liver, biopsy: Central [...] Material Received: A: Outside Slides, x11 slides, [id number], [facility], Department of Pathology, [address] [place] [address] History: 60-year-old female. Gross Description: A. Received are eleven (11) total outside slides and a report labeled "[id number]". mr/09/20/2020 If immunohistochemical stains and/or in situ hybridization are cited in this report, the performance characteristics were determined by the Department of Pathology and Laboratory Medicine of the [facility] ([employer]) in compliance with [...] of Pathology and Laboratory Medicine of the [facility]. It has not been cleared or approved by the FDA. The FDA has determined that such clearance or approval is not necessary. Specimen Performing Organization Address City/State/ZIP Code P shane Number [facility] [address] [place] [address] * PATHOLOGY REPORTS FROM OUTSIDE SCAN (09/20/2020 12:00 AM CDT) Narrative Performed At This result has an attachment that is n ot available. Ordered by an unspecified provider. 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 11/29/2020 6:59 PM Full Code 11/29/2020 3:32 PM Provider has discussed Code Status No, more discussi on w/Patient or Family? needed 11/15/2020 7:32 PM Full Code 11/04/2020 7:35 PM Provider has discussed Code Status Yes w/Patient or Family? 10/26/2020 12:53 PM Full Code 10/20/2020 12:21 PM Provider has discussed Code Status No, discussion no t w/Patient or Family? necessary based on Dx 10/20/2020 12:21 PM Full Code 10/20/2020 8:46 AM Provider has discussed Code Status No, discussion no t w/Patient or Family? necessary based on Dx
--- OUTSIDE RECORDS SUMMARY | 2020-12-13 12:02 | XMS REPORT | Encounter Summary ---
Author Author [facility] Address Unknown Phone Unavailable Care Team Providers Care Switch Tender Name Role Phone Self, Garfield OLVERA PCP Riley Hopson MD 3 Reason for Referral * Consult, Test & Treat (Routine) Referred By Contact Referred To Contact Status Reason Specialty Diagnoses / Procedures Basilia Gaitan APRN-NP [address] [place], [place] [id number] Pending Review Procedures REQUEST FOR CARDIOLOGY APPOINTMENT Electronically signed by Basilia CATALAN at * Consult, Test & Treat (Routine) Referred By Contact Referred To Contact Status Reason Specialty Diagnoses / Procedures Basilia Gaitan APRN-NP [address] [place], [place] [id number] Pending Review Procedures REQUEST FOR CARDIOLOGY APPOINTMENT Electronically signed by Basilia CATALAN at * Radiology Services (Routine) Referred By Contact Referred To Contact Status Reason Specialty Diagnoses / Procedures Basilia Gaitan APRN-NP [address] [place] [address] New Request Radiology Diagnoses Cirrhosis of liver with ascites, unspecified hepatic cirrhosis type (HCC) P rocedures IR PARACENTESIS THERAPEUTIC Electronically signed by Basilia CATALAN at Reason for Visit * Reason Comments Post-hospital Follow Up * Consultation (Discharge Pending) Referred By Contact Referred To Contact Status Reason Specialty Diagnoses / Procedures Diya Mena MD [address] [place] [address] [facility] [address] [facility] [address], [address] [place] [address] Pending Review Cardiology Procedures APPOINTMENT REQUEST: CARDIOLOGY HEART FAILURE Encounter Details Care Team Description Date Type Department Basilia Gaitan, CONFORMAL PAD FORMER-MANAGER CASH [address] [employer] [id number] [place], [place] [id number] Post-hospital Follow Up 12/12/2020 Office Visit Cardiology: [facility] 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 Your instructions tod ay: 1. Recommendations: we will ask the home health to get you an abdominal binder. Increase digoxin to 62.5 mcg alternating with 125 mcg daily. Have a digoxin lev el in 1 week. Must be 8 hrs after the dose. You can continue your spironolacton e at 100 mg twice a day. 2. Next follow up appointment on 12/20 w/miah Cui at 11:30. Please schedule cristina Pandya NP, w/ Palliative Care the same day. 3. Please call [phone] to schedule your Peritoneocentesis at either the [facility] or [facility] For up to date information on the COVID-19 virus, visit the CDC website. General supportive care during cold and flu season and infection prevention essence nders: Wash hands often with soap and water for at least 20 seconds Cover your mouth and nose Stay home if sick and symptoms mild or manageable If you must be around people wear a mask If you are having symptoms of a lower respiratory infection (cough, shortness of breath) and/or fever AND either traveled in last 30 days (internationally or to region of exposure) OR known exposure to patient with COVID19: Call your primary care provider for questions or health needs. Tell your doctor about your recent travel and your symptoms In a medical emergency, call [phone] or go to the nearest emergency room. If you wish to contact us, please call and leave a message for the heart failure nurses at [phone]. For urgent issues after hours, on the weekends or holidays, please call to be connected with the nurse or doctor push connector assembler. To schedule or change an appointment call [phone]. MD Basilia Jeffers APRN Nikki Mattison, APRN Maura Janes, CHYRSTAL [facility] Your Heart Failure Symptom Awareness and Action Plan Every Day Action Plan Weigh yourself in the morning before breakfast. Write it down and compare it to yesterday's weight. Take your medicine, as prescribed. Please call if you have concerns about the si de effects, cost or refills. Check for worsened [...] symptoms, please call the heart failure nurses: [phone] Increased shortness of breath with activity Weight gain of 3 pounds in one day or 5 pounds in a week Increased swelling in your ankles or legs Increased swelling in your stomach Increasing fatigue You may need an adjustment of your medications. Red Zone These are urgent symptoms. Please call the heart failure nurses: [phone] Sh ortness of breath at rest or waking up at night feeling short of breath or cough ing Increased number of pillows used or needing to sit upright to sleep Chest tightness at rest Dizziness, lightheadedness or feeling faint You need to schedule an appointment Emergency Zone - call 256 Worsening chest tightness or pain that is not relieved by medication Severe shortness of breath and a cough with pink, frothy sputum documented in this encounter Ordered Prescriptions Start Date End Date Prescription Sig Dispensed Refills 12/12/2020 spironolactone Take one 180 tablet 1 (ALDACTONE) 100 mg tablet by tabletIndications: Acute mouth twice on chronic heart failure daily. Take with preserved ejection with food. fraction (HCC), Aortic valve prosthesis present 12/12/2020 digoxin (LANOXIN) 125 mcg Take 62.5 mcg 90 tablet 3 (0.125 mg) tablet (1/2 tab) alternating with 125 mcg (1 tab) daily documented in this encounter Progress Notes * Basilia Gaitan, CONFORMAL PAD FORMER-MANAGER CASH - 12/12/2020 2:00 PM CDT Date of Service: 12/12/2020 Zaria Paulson is a 60 y.o. female. She is followed by Dr. Longo. HPI Zaria Paulson is seen today in a post hospital visit. She has chronic heart failure with preserved ejection fraction with significant RV failure, nonischemi c cardiomyopathy, s/p aortic valve replacement x3 (on chronic anticoagulation fo r mechanical valve),tricuspid valve regurgitation, paroxysmal atrial fibrillat ion, hypertension, previous endocarditis, iron deficiency anemia -received IV ir on, chronic kidney disease, hypothyroidism, depression, non-Hodgkins lymphoma an d cirrhosis (etiology secondary to chemotherapy from treatment with non-Hodgki n lymphoma). She was recently hospitalized at [facility] with GI bleed and nontraumatic rectus hematoma. She was transferred from [facility] for left rectus muscle hematoma and active extravasation. She had previou sly been admitted at the beginning of October for GI bleed in the setting of cirr hosis and was treated with ceftriaxone and pantoprazole. She did have hematuria and also went mesenteric angiogram with coil embolization of the left inferior e pigastric artery. She required 3 PRBCs during hospitalization. Warfarin was resu med after bleeding was controlled. She was discharged with the reduced dose of B umex compared to FITNESS ASSISTANT dosing. She was followed closely in heart failure clinic and readmitted to [facility] from heart failure clinic on 11/29/2020 with acute on chronic hea rt failure exacerbation. She was diuresed with Bumex drip and transitioned to Bu tootie 5 mg twice daily at discharge, and spironolactone was increased to 100 mg da [place]. Echocardiogram revealed severe RV dysfunction with severe TR. She was sta rted on digoxin and her beta-gulshan was discontinued. Abdominal ultrasound did reveal significant abdominal ascites and she underwent paracentesis with removal of 6.3 L of fluid on 12/02. Dr. Lamb had a lengthy discussion with the patient regarding her heart failure prognosis of likely less than 1 year given the sev erity of her RV failure and palliative care team was consulted. Zaria Paulson presents today accompanied by her . She reports that he r weight is stable on her home scale since hospital discharge. She continues to have left-sided upper and lower quadrant abdominal pain and fullness. She stat es that she can often massage the pain to improve it. This discomfort limits he r activity. She denies dyspnea on exertion. She denies any chest pain, lighthe adedness, syncope, or strokelike symptoms. She has had a chance to talk with elizabeth hallman of her family members regarding her prognosis. She will be meeting with her father this weekend. She believes she has been taking her spironolactone 100 mg twice a day, rather than once daily as prescribed at hospital discharge. Vitals: 12/12/20 1428 BP: 100/52 BP Source: Arm, Right Upper Patient Position: Sitting Pulse: 103 Temp: 36.7 C (98 F) TempSrc: Skin SpO2: 98% Weight: 60.4 kg (133 lb 3.2 oz) Height: 1.575 m (5' 2") PainSc: Eight Body mass index is 24.36 kg/m. Past Medical History Patient Active Problem List Diagnosis Date Noted Acute on chronic diastolic (congestive) heart failure (HCC) 12/10/2020 Acute on chronic right heart failure (HCC) 11/30/2020 Hyponatremia 11/30/2020 Acute on chronic heart failure (HCC) 11/29/2020 Hematoma of left flank 11/15/2020 Hematoma of right flank 11/15/2020 Hematuria 11/15/2020 Vaginal bleeding 11/15/2020 Nontraumatic rectus hematoma 11/04/2020 Hypoalbuminemia 10/23/2020 LEONORA (acute kidney injury) (HCC) 10/21/2020 GI bleeding 10/20/2020 Cirrhosis (HCC) 09/07/2020 Non-ischemic cardiomyopathy (HCC) 09/07/2020 Paroxysmal atrial fibrillation (HCC) 09/07/2020 Stage 3b chronic kidney disease (HCC) 09/07/2020 Atrial tachycardia (HCC) 09/07/2020 Iron deficiency anemia 08/03/2020 High output congestive heart failure (HCC) 08/01/2020 Hypotension, unspecified 07/10/2020 Chronic heart failure with preserved ejection fraction (HCC) 06/07/2020 Anemia 06/07/2020 Severe tricuspid regurgitation 06/07/2020 Hx of mechanical aortic valve replacement 06/07/2020 Chronic anticoagulation 06/07/2020 warfarin History of endocarditis 06/07/2020 ROS Review of Systems Constitutional: Negative. HENT: Negative. Eyes: Negative. Cardiovascular: Negative. Respiratory: Negative. Endocrine: Negative. Hematologic/Lymphatic: Negative. Skin: Negative. Musculoskeletal: Negative. Gastrointestinal: Positive for bloating and abdominal pain. Genitourinary: Negative. Neurological: Negative. Psychiatric/Behavioral: Negative. Allergic/Immunologic: Negative. Physical Exam General Appearance: In NAD Skin: warm, dry Neck Veins: 9 cm JVP, + HJR - severe TR Respiratory Effort: breathing comfortably, no respiratory distress Auscultation/Percussion: lungs diminished but clear to auscultation, bilateral l ower lobe rales, no rhonchi, no wheezing Cardiac Rhythm: regular rhythm and normal rate Cardiac Auscultation: S1, S2 normal, no rub, no definite S3 or S4 Murmurs: 3-4/6 murmur Lower Extremity Edema: No lower extremity edema Abdominal Exam: Distended and firm, slightly tender Orientation: oriented to time, place and person Cardiovascular Studies Echocardiogram 10/21/2020: LV normal size, mild concentric hypertrophy, LVEF 60%, no segmental wall motion abnormalities. Unable to assess diastolic function. RV moderately dilated with normal systolic function. Severe biatrial dilatation . CVP 10-20 mmHg. Mitral valve with mild stenosis, mild regurgitation, mild mi tral annular calcification. Severe TR. Mechanical aortic valve present, no srinath nosis, trace regurgitation. PASP 79 mmHg. Echocardiogram completed 11/30/2020: LV normal size, moderate concentric hypertrop hy, LVEF 55%, unable to assess diastolic function. RV severely dilated, RV syst olic function severely reduced. IVS 1.40 cm. Severe biatrial dilatation. CVP 1 0-20 mmHg. Moderate mitral annular calcification with mild MVR. Severe TVR. M echanical aortic valve with mean gradient 11 mmHg and peak velocity 2.5 m/s. PA SP 76 mmHg. Problems Addressed Today Encounter Diagnoses Name Primary? Acute on chronic right heart failure (HCC) Yes Severe tricuspid regurgitation Cirrhosis of liver with ascites, unspecified hepatic cirrhosis type (HCC) Hyponatremia Chronic anticoagulation Acute on chronic diastolic (congestive) heart failure (HCC) Acute on chronic heart failure with preserved ejection fraction (HCC) Aortic valve prosthesis present Assessment and Plan Acute on chronic Heart Failure with Preserved Ejection Fraction RV failure Severe TR Pulmonary hypertension: -Echo on05/22/2020 showed an EF of 60%. -Echocardiogram 11/30/2020: RV severely dilated with severely reduced systolic fun ction. CVP 10-20 mmHg. Severe TVR. PASP 76 mmHg. -Today, she describes NYHA Functional Class 34symptoms, appears slightly hy pervolemic by exam, particularly abdominal ascites. Her weight is stable at 13 3 pounds on the office scale, and stable on her home scale. -Previously scheduled for CardioMEMS on 10/20 but was hospitalized at the time, a nd now not a good candidate due to recent bleeding. > Diuretics: Continue Bumex 5 mg twice daily, spironolactone 100 mg twice daily >GDMT:She continues with spironolactone 100 mg twice daily, and potassium chloride 20 mEq twice daily. I have increased her digoxin (for RV failure) to 62.5 mcg alternating with 125 mcg daily as her recent digoxin level is 0.31 on 12/11. She will repeat a digoxin level in 1 week. > BMP today reveals creatinine 1.0, BUN 18, sodium 132, potassium 3.7, chloride 93, CO2 23. Atrial Fibrillation (Paroxysmal)/ Atrial Tachycardia/ s/p AorticValveReplace ment: -She is onmetoprolol tartrateand denies palpitations. -She is onwarfarinoral anticoagulation. Goal INR 2.03.0. (Goal had been lowered to 1.62.0 with recent hospitalization but Dr. Longo have readjusted to 2.03.0). Her anticoagulation is managed by Dr. Longo. Her beta-gulshan was discontinued during recent hospitalization and replaced wit h digoxin given RV failure. See dosing above. > INR monitored by INR RN team Chronic Kidney Disease - StageIII: Chronic hyponatremia -Her creatinine was 0.92 and sodium 132 on day of discharge 12/04 > Repeat BMP today Cirrhosis History of colonic AVMs She follows with hepatology, Dr. Marti. Paracentesis 12/02 with 6.3 L fluid removal > Continue spironolactone and Bumex as above > We will repeat abdominal ultrasound with paracentesis if indicated in IRorder has been placed > We will ask home health to supply abdominal binder Anemia Iron deficiency Recent GI bleeding in the setting of cirrhosis early October 2020 Left rectus abdominal muscle hematoma requiring hospital admission EGD on 10/21 which revealed normal esophagus. 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 Coil embolization in IR of the left inferior epigastric artery. She required 3 units PRBC during hospitalization 11/04-11/15. INR goal reduced to 1.62.0, but most recently increased back to normal range for mechanical valve 2.03.[address] Longo. IV iron sucrose given while hospitalized () Hemoglobin stable at 8.7 on discharge 12/04 -She denies any signs or symptoms of bleeding > We will order CBC at her follow-up appointment Hematuria Urinary retention Seen by urology during late October hospitalization with plan for outpatient CT u rogram and cystoscopy. > Follow-up appointment on 12/22/[address] urogram and cystoscopy Hypoalbuminemia > Encourage protein intake in diet Zaria Paulson will follow-up in the heart failure clinic with myself on 12/20. I have asked that she be scheduled with the palliative care MANAGER CASH, Gino Pandya, same day. She has been encouraged to contact us prior to the next appointment w ith any questions, concerns, or worsening symptoms. Thank you for allowing me to participate in the care of this patient. If you hav e any questions please do not hesitate to contact our office. RACHELL Pearson-BC, MSN, CHFN | CVM Advance Practice Provider Heart Failure ARSALAN Coordinator [facility] | | [email or web address] [address], [address], [place], [place] [address] Ramo Lamb Total Time Today was 69 minutes in the following activities: Preparing to see th e patient, Obtaining and/or reviewing separately obtained history, Performing a medically appropriate examination and/or evaluation, Counseling and educating th e patient/family/caregiver, Ordering medications, tests, or procedures, Document ing clinical information in the electronic or other health record and [facility] interpreting results (not separately reported) and communicating results to the patient/family/caregiver Current Medications (including today's revisions) acetaminophen (TYLENOL EXTRA STRENGTH) 500 mg tablet Take 500 mg by mouth ev deedee 4 hours as needed for Pain. Max of 4,000 mg of acetaminophen in 24 hours. ascorbic acid (VITAMIN C) 500 mg tablet Take 500 mg by mouth daily. bumetanide (BUMEX) 1 mg tablet Take five tablets by mouth twice daily. calcium carbonate (OS-KRUPA) 1250 mg tablet Take 1,250 mg by mouth daily. digoxin (LANOXIN) 125 mcg (0.125 mg) tablet Take 62.5 mcg (1/2 tab) alternat ing with 125 mcg (1 tab) daily ergocalciferol (VITAMIN D-2) 1,250 mcg (50,000 unit) capsule Take 1 capsule by mouth every 7 days. fluticasone propionate (FLONASE) 50 mcg/actuation nasal spray, suspension Ap ply to each nostril as directed daily. Shake bottle gently before using. hyoscyamine (ANASPAZ) 0.125 mg rapid dissolve tablet Place one tablet under tongue every 4 hours as needed. levothyroxine (SYNTHROID) 75 mcg tablet Take 75 mcg by mouth daily 30 minute s before breakfast. mupirocin (BACTROBAN) 2 % topical ointment Apply 1 g topically to affected a constantino three times daily. oxybutynin chloride (DITROPAN) 5 mg tablet Take one tablet by mouth three ti mes daily. pantoprazole DR (PROTONIX) 40 mg tablet Take 40 mg by mouth twice daily. potassium chloride SR (K-DUR) 20 mEq tablet Take 20 mEq by mouth twice daily . Take with a meal and a full glass of water. sertraline (ZOLOFT) 100 mg tablet Take one tablet by mouth twice daily. spironolactone (ALDACTONE) 100 mg tablet Take one tablet by mouth twice shayy y. Take with food. VASCEPA 1 gram capsule TAKE 2 CAPSULES BY MOUTH TWICE DAILY WITH MEALS warfarin (COUMADIN) 1 mg tablet Take two tablets by mouth daily. documented in this encounter Plan of Treatment Order Schedule Name Type Priority Associated Diag noses Expected: 12/12/2020 (Approximate), Expi res: 12/12/2021 IR PARACENTESIS Imaging Routine Cirrhosis of l iver with THERAPEUTIC ascites, unspecified hepatic cirrhosis type (HCC) Expected: 12/12/2020 (Approximate), Expi res: 12/12/2021 PROTIME INR (PT) Lab Routine Chronic antic oagulation Ordered: 12/12/2020 POC BASIC METABOLIC PANEL Point of Care STAT Acut e on chronic right (BMP) Testing heart failure (HCC) Expected: 12/19/2020 (Approximate), Expi res: 12/12/2021 DIGOXIN LEVEL Lab Routine Acute on chroni c right heart failure (HCC) Acute on chronic diastolic (congestive) heart failure (HCC) documented as of this encounter Goals Goal Patient Associated Recent Progress Patient-Stat Aut hor Goal Type Problems ed? [facility] On track (10/23/2020 Yes [place], 1:06 PM CDT) CHRYSTAL Singh documented as of this encounter Procedures Comments Procedure Name Priority Date/Time Associated Diag nosis HC CHEM 8 PANEL, POC 12/12/2020 3:25 PM CDT documented in this encounter Results * POC BASIC METABOLIC PANEL (BMP) (12/12/2020 3:25 PM CDT) Sodium-POC 132 (L) 137 - 147 MMOL/L [...] Number [facility] [address] [place] [address] documented in this encounter Visit Diagnoses Diagnosis Acute on chronic right heart failure (H CC) - Primary Severe tricuspid regurgitation Diseases of tricuspid valve Cirrhosis of liver with ascites, unspec ified hepatic cirrhosis type (HCC) Hyponatremia Hyposmolality and/or hyponatremia Chronic anticoagulation Long-term (current) use of anticoagulan ts Acute on chronic diastolic (congestive) heart failure (HCC) Acute on chronic heart failure with pre served ejection fraction (HCC) Aortic valve prosthesis present Heart valve replaced by other means documented in this encounter Discontinued Medications Start Date End Date Medication Sig Discontinue Reason 12/06/2020 12/12/2020 digoxin (LANOXIN) 125 mcg Take one (0.125 mg) tablet tablet by mouth every 48 hours. 12/04/2020 12/12/2020 spironolactone Take one (ALDACTONE) 100 mg tablet by tabletIndications: Acute mouth daily. on chronic heart failure Take with with preserved ejection food. fraction (HCC), Aortic valve prosthesis present documented as of this encounter Orders First Ordered Date Appointment Count Last Ordered Date REQUEST FOR CARDIOLOGY APPOINTMENT 2 documented in this encounter Additional Health Concerns Assessment Noted Time A fall risk assessment has been completed for the pat ient 12/12/2020 2:28 PM CDT PHQ-2 Depression Total Score: 2 12/07/2020 3:18 PM CDT documented as of this encounter
--- OUTSIDE RECORDS SUMMARY | 2020-12-13 12:02 | XMS REPORT | Encounter Summary ---
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 [facility] On track (10/23/2020 Yes [place], 1:06 [...]
--- OUTSIDE RECORDS SUMMARY | 2020-12-13 12:02 | XMS REPORT | Encounter Summary ---
Author Author [facility] Organization [facility] Address Unknown Phone Unavailable Care Team Providers Care Steamer Operator Name Role Phone Garfield Gray MD PCP Riley Hopson MD 3 Encounter Details Care Team Description Date Type Department Josi Purvis BSN Severe tricuspid regurgitation; Paroxysmal atrial fibrillation (HCC); Non-ischemic cardiomyopathy (HCC); History of endocarditis; High output congestive heart failure (HCC) 12/12/2020 Orders Only Cardiology: [facility] [address], [address] [place] [address] Social History Date Tobacco Use Types Packs/Day Years Used Never Smoker Smokeless Tobacco: Never Used Comments Alcohol Use Standard Drinks/Week Not Currently 0 (1 standard drink = 0.6 o z pure alcohol) Sex Assigned at Date Recorded Female 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 [facility] On track (10/23/2020 Yes Sheldon, 1:06 PM CDT) CHRYSTAL Singh documented as of this encounter Procedures Comments Procedure Name Priority Date/Time Associated Diag nosis DIGOXIN LEVEL STAT 12/11/2020 Severe tricuspi d regurgitation Paroxysmal atrial fibrillation (HCC) Non-ischemic cardiomyopathy (HCC) History of endocarditis High output congestive heart failure (HCC) documented in this encounter Results * DIGOXIN LEVEL (12/11/2020) Digoxin 0.31 (A) 0.80 - 2.0 OTHER OUTSIDE LAB Specimen Blood - Blood Narrative Performed At This result has an attachment that is n ot available. Performing Organization Address City/State/ZIP Code P shane Number OTHER OUTSIDE LAB documented in this encounter Visit Diagnoses Diagnosis Severe tricuspid regurgitation Diseases of tricuspid valve Paroxysmal atrial fibrillation (HCC) Atrial fibrillation Non-ischemic cardiomyopathy (HCC) Other primary cardiomyopathies History of endocarditis Personal history of other diseases of c irculatory system High output congestive heart failure (H CC) documented in this encounter Additional Health Concerns Assessment Noted Time A fall risk assessment has been completed for the pat ient 12/12/2020 2:28 PM CDT PHQ-2 Depression Total Score: 2 12/07/2020 3:18 PM CDT documented as of this encounter
--- OUTSIDE RECORDS SUMMARY | 2020-12-13 12:02 | XMS REPORT | Encounter Summary ---
Author Author [facility] Organization [facility] Address Unknown Phone Unavailable Care Team Providers Care Book Coverer Name Role Phone Self, Garfield OLVERA PCP Riley Hopson MD 3 Reason for Visit * Reason Onset Date Comments Medication Follow-up 12/08/2020 Encounter Details Care Team Description Date Type Department Josi Purvis BSN Medication Follow-up 12/08/2020 Telephone Cardiology: [facility] [address] [place] [address] [address], [address] [place] [address] Social History Date Tobacco Use Types Packs/Day Years Used Never Smoker Smokeless Tobacco: Never Used Comments Alcohol Use Standard Drinks/Week Not Currently 0 (1 standard drink = 0.6 o z pure alcohol) Sex Assigned at Date Recorded 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 documented as of this encounter Functional Status Date of Assessment Functional Status Response 12/07/2020 Does the patient have a hearing impairment: No 12/07/2020 Does the patient have a visual impairment: Yes 12/07/2020 Does the patient have impaired ambulation: Yes 12/07/2020 Does the patient have an activity of daily living No (ADL) impairment: 12/07/2020 Does the patient have an instrumental activity of No daily living (IADL) impairment: Date of Assessment Cognitive Status Response 12/07/2020 Does the patient have a cognitive impairment: No documented as of this encounter Miscellaneous Notes * Telephone Encounter - Josi Purvis BSN - 12/08/2020 4:57 PM CDT Images from the original note were not included. Basilai Gaitan, RE RECORDING MIXER-AUTOMATIC PINSETTER MECHANIC Josi Purvis BSN Caller: Unspecified (3 days ago, 3:11 PM) The chest discomfort is difficult to assess and treat without seeing her. I wo uld encourage her to continue using Tylenol. Her beta-gulshan was stopped in the hospital and she was started on digoxin whic h should be helping control her heart rates. Please make sure she filled this medication and started taking it. She is only taking it currently every 48 miguel rs. Lets check a digoxin level and see if she is in a therapeutic level. The level would need to be drawn at least 8 hours after a digoxin dose, or else it will be falsely elevated. Call to pt with Recs from Basilia SIMON. Pt states she is taking Digoxin q 48 hrs. Will not be a dig day on Friday when she has appt with Basilia will have labs drawn then. documented in this encounter Plan of Treatment Not on filedocumented as of this encounter Goals Goal Patient Associated Recent Progress Patient-Stat Aut hor Goal Type Problems ed? [facility] On track (10/23/2020 Yes Sheldon, 1:06 PM CDT) CHRYSTAL Singh documented as of this encounter Results * DIGOXIN LEVEL (12/11/2020) Digoxin 0.31 (A) 0.80 - 2.0 OTHER OUTSIDE LAB Specimen Blood - Blood Narrative Performed At This result has an attachment that is n ot available. Performing Organization Address City/State/ZIP Code P shane Number OTHER OUTSIDE LAB documented in this encounter Visit Diagnoses Diagnosis Severe tricuspid regurgitation - Primar y Diseases of tricuspid valve Paroxysmal atrial fibrillation (HCC) Atrial fibrillation Non-ischemic cardiomyopathy (HCC) Other primary cardiomyopathies History of endocarditis Personal history of other diseases of c irculatory system High output congestive heart failure (H CC) documented in this encounter Additional Health Concerns Assessment Noted Time A fall risk assessment has been completed for the pat ient 12/07/2020 3:19 PM CDT PHQ-2 Depression Total Score: 2 12/07/2020 3:18 PM CDT documented as of this encounter
--- OUTSIDE RECORDS SUMMARY | 2020-12-13 12:02 | XMS REPORT | Encounter Summary ---
Author Author [facility] Organization [facility] Address Unknown Phone Unavailable Care Team Providers Care Pyrometer Mechanic Name Role Phone Self, Garfield OLVERA PCP Riley Hopson MD 3 Reason for Visit * Reason Comments Labs Only Encounter Details Care Team Description Date Type Department Kathryn Barbosa MA Labs Only 12/11/2020 Documentation Cardiology: [facility] 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 [facility] On track (10/23/2020 Yes Sheldon, 1:06 PM CDT) CHRYSTAL Singh documented as of this encounter Procedures Comments Procedure Name Priority Date/Time Associated Diag nosis PROTIME INR (PT) Routine 12/08/2020 Paroxysmal at rial fibrillation (HCC) documented in this encounter Results * PROTIME INR (PT) (12/08/2020) INR 2.0 (H) 0.8 - 1.4 [facility] Protime 23.1 (H) 12.2 - 14.7 [facility] Specimen Blood - Blood Narrative Performed At This result has an attachment that is n ot available. Performing Organization Address City/State/ZIP Code P shane Number [facility] [address] [place] [address] documented in this encounter Visit Diagnoses Diagnosis Paroxysmal atrial fibrillation (HCC) Atrial fibrillation documented in this encounter Additional Health Concerns Assessment Noted Time A fall risk assessment has been completed for the pat ient 12/07/2020 3:19 PM CDT PHQ-2 Depression Total Score: 2 12/07/2020 3:18 PM CDT documented as of this encounter
--- OUTSIDE RECORDS SUMMARY | 2020-12-13 12:02 | XMS REPORT | Encounter Summary ---
Author Author [facility] Organization [facility] Address Unknown Phone Unavailable Care Team Providers Care Custom Studio Coordinator Name Role Phone Self, Garfield OLVERA PCP Riley Hopson MD 3 Reason for Visit * Reason Onset Date Comments Lab Request 12/11/2020 Encounter Details Care Team Description Date Type Department Josi Purvis BSN Lab Request 12/11/2020 Telephone Cardiology: [facility] [address] [place] [address] [address], [address] [place] [address] Social History Date Tobacco Use Types Packs/Day Years Used Never Smoker Smokeless Tobacco: Never Used Comments Alcohol Use Standard Drinks/Week Not Currently 0 (1 standard drink = 0.6 o z pure alcohol) Sex Assigned at Date Recorded 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 Per [facility] will see pt to day and can draw her dig level today documented in this encounter Plan of Treatment Not on filedocumented as of this encounter Goals Goal Patient Associated Recent Progress Patient-Stat Aut hor Goal Type Problems ed? [facility] On track (10/23/2020 Yes Sheldon, 1:06 [...]
--- OUTSIDE RECORDS SUMMARY | 2020-12-13 12:02 | XMS REPORT | Encounter Summary ---
Author Author [facility] Organization [facility] Address Unknown Phone Unavailable Care Team Providers Care Quartz Mounter Name Role Phone Self, Garfield OLVERA PCP Riley Hopson MD 3 Reason for Visit * Reason Comments Anticoagulation INR 2.0 Encounter Details Care Team Description Date Type Department Helen Waggoner RN Anticoagulation (INR 2.0) 12/11/2020 Anticoagulation Cardiology: [facility] [address] [place] [address] [address], [address] [place] [address] Social History Date Tobacco Use Types Packs/Day Years Used Never Smoker Smokeless Tobacco: Never Used Comments Alcohol Use Standard Drinks/Week Not Currently 0 (1 standard drink = 0.6 o z pure alcohol) Sex Assigned at Date Recorded 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 Left brief VM 12/11 to patient that a my chart message will be sent to patient with warfarin intake plan. I provided her nurse triage number with any questions she may have. documented in this encounter Plan of Treatment Not on filedocumented as of this encounter Goals Goal Patient Associated Recent Progress Patient-Stat Aut hor Goal Type Problems ed? [facility] On track (10/23/2020 Yes Sheldon, 1:06 PM CDT) CHRYSTAL Singh documented as of this encounter Visit Diagnoses Diagnosis Hx of mechanical aortic valve replaceme nt - Primary Heart valve replaced by other means Chronic [...]
--- OUTSIDE RECORDS SUMMARY | 2020-12-13 12:03 | XMS REPORT | Encounter Summary ---
Author Author [facility] Organization [facility] Address Unknown Phone Unavailable Care Team Providers Care General Service Officer Name Role Phone Self, Garfield OLVERA PCP Riley Hopson MD 3 Reason for Visit * Reason Comments Anticoagulation Encounter Details Care Team Description Date Type Department Susan Palomino RN Anticoagulation 11/20/2020 Anticoagulation Cardiology: [facility] [address], [address] [place] [address] Social History Date Tobacco Use Types Packs/Day Years Used Never Smoker Smokeless Tobacco: Never Used Comments Alcohol Use Standard Drinks/Week Not Currently 0 (1 standard drink = 0.6 o z pure alcohol) Sex Assigned at Date Recorded 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 documented as of this encounter Functional Status Date of Assessment Functional Status Response 11/06/2020 Does the patient have a hearing impairment: [...] as of this encounter Progress Notes * Susan Palomino RN - 11/20/2020 12:04 PM CDT Called and spoke to patient. Reviewed that we never received INR from external f acility. Patient agreeable to have INR checked tomorrow Patient reports that she was told to take 4 mg daily and has been since d/c. Updated tracker to patient reported warfarin. Patient tells me that her HHRN told her she could have a home INR machine, patient is interested in having home INR machine. Will discuss fur ther with NCM. documented in this encounter Plan of Treatment Not on filedocumented as of this encounter Goals Goal Patient Associated Recent Progress Patient-Stat Aut hor Goal Type Problems ed? [facility] On track (10/23/2020 Yes Sheldon, 1:06 PM CDT) CHRYSTAL Singh documented as of this encounter Visit Diagnoses Diagnosis Chronic anticoagulation - Primary Long-term (current) use of anticoagulan ts Paroxysmal atrial fibrillation (HCC) Atrial fibrillation documented in this encounter Additional Health Concerns Assessment Noted Time A fall risk assessment has been completed for the pat ient 11/15/2020 8:15 AM CDT PHQ-2 Depression Total Score: 0 08/24/2020 7:42 AM CDT documented as of this encounter
--- OUTSIDE RECORDS SUMMARY | 2020-12-13 12:03 | XMS REPORT | Encounter Summary ---
Author Author [facility] Organization [facility] Address Unknown Phone Unavailable Care Team Providers Care Parking Lot Supervisor Name Role Phone Self, Garfield OLVERA PCP Riley Hopson MD 3 Reason for Visit * Reason Comments Labs Only Encounter Details Care Team Description Date Type Department Kathryn Barbosa MA Labs Only 11/24/2020 Documentation Cardiology: [facility] 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 documented as of this encounter Functional Status Date of Assessment Functional Status Response 11/21/2020 Does the patient have a hearing impairment: No 11/21/2020 Does the patient have a visual impairment: Yes 11/21/2020 Does the patient have impaired ambulation: Yes 11/21/2020 Does the patient have an activity of daily living No (ADL) impairment: 11/21/2020 Does the patient have an instrumental activity of No daily living (IADL) impairment: Date of Assessment Cognitive Status Response 11/21/2020 Does the patient have a cognitive impairment: No documented as of this encounter Plan of Treatment Not on filedocumented as of this encounter Goals Goal Patient Associated Recent Progress Patient-Stat Aut hor Goal Type Problems ed? [facility] On track (10/23/2020 Yes Sheldon, 1:06 PM CDT) CHRYSTAL Singh documented as of this encounter Procedures Comments Procedure Name Priority Date/Time Associated Diag nosis PROTIME INR (PT) Routine 11/24/2020 Chronic heart failure with preserved ejection fraction (HCC) Paroxysmal atrial fibrillation (HCC) documented in this encounter Results * PROTIME INR (PT) (11/24/2020) INR 1.9 (H) 0.8 - 1.4 [facility] Protime 22.0 (H) 12.2 - 14.7 [facility] Specimen Blood - Blood Narrative Performed At This result has an attachment that is n ot available. Performing Organization Address City/State/ZIP Code P shane Number [facility] [address] [place] [address] documented in this encounter Visit Diagnoses Diagnosis Chronic heart failure with preserved ej ection fraction (HCC) Paroxysmal atrial fibrillation (HCC) Atrial fibrillation documented in this encounter Additional Health Concerns Assessment Noted Time A fall risk assessment has been completed for the pat ient 11/21/2020 8:16 AM CDT PHQ-2 Depression Total Score: 0 08/24/2020 7:42 AM CDT documented as of this encounter
--- OUTSIDE RECORDS SUMMARY | 2020-12-13 12:03 | XMS REPORT | Encounter Summary ---
Author Author [facility] Organization [facility] Address Unknown Phone Unavailable Care Team Providers Care Operations Trainer Name Role Phone Self, Garfield OLVERA PCP Riley Hopson MD 3 Reason for Visit * Reason Onset Date Comments Anticoagulation 11/24/2020 Encounter Details Care Team Description Date Type Department Fernie Camargo LPN Anticoagulation 11/24/2020 Telephone Cardiology: [facility] [address] [place] [address] [address], [address] [place] [address] Social History Date Tobacco Use Types Packs/Day Years Used Never Smoker Smokeless Tobacco: Never Used Comments Alcohol Use Standard Drinks/Week Not Currently 0 (1 standard drink = 0.6 o z pure alcohol) Sex Assigned at Date Recorded 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 Derek verb understanding. * Telephone Encounter - Fernie Camargo LPN - 11/24/2020 9:23 AM CDT MILAGRO Chahal called reporting pt was requesting an INR to be done today but she d oes not have orders. Asks for call back to [phone] to determine if INR needs to be done today. documented in this encounter Plan of Treatment Not on filedocumented as of this encounter Goals Goal Patient Associated Recent Progress Patient-Stat Aut hor Goal Type Problems ed? [facility] On track (10/23/2020 Yes [employer], 1:06 PM CDT) CHRYSTAL Singh documented as of this encounter Results * PROTIME INR (PT) (11/24/2020) INR 1.9 (H) 0.8 - 1.4 [facility] Protime 22.0 (H) 12.2 - 14.7 [facility] Specimen Blood - Blood Narrative Performed At This result has an attachment that is n ot available. Performing Organization Address City/State/ZIP Code P shane Number [facility] [address] [place] [address] documented in this encounter Visit Diagnoses Diagnosis Chronic heart failure with preserved ej ection fraction (HCC) - Primary Paroxysmal atrial fibrillation (HCC) Atrial fibrillation documented in this encounter Additional Health Concerns Assessment Noted Time A fall risk assessment has been completed for the pat ient 11/21/2020 8:16 AM CDT PHQ-2 Depression Total Score: 0 08/24/2020 7:42 AM CDT documented as of this encounter
--- OUTSIDE RECORDS SUMMARY | 2020-12-13 12:03 | XMS REPORT | Encounter Summary ---
Author Author [facility] Organization [facility] Address Unknown Phone Unavailable Care Team Providers Care Computer Information Systems Instructor Name Role Phone Self, Garfield OLVERA PCP Riley Hposon MD 3 Encounter Details Care Team Description Date Type Department Fernie Camargo LPN 11/28/2020 Telephone Cardiology: [facility] [address], [address] [place] [address] Social History Date Tobacco Use Types Packs/Day Years Used Never Smoker Smokeless Tobacco: Never Used Comments Alcohol Use Standard Drinks/Week Not Currently 0 (1 standard drink = 0.6 o z pure alcohol) Sex Assigned at Date Recorded 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 * Telephone Encounter - Fernie Camargo LPN - 11/28/2020 1:32 PM CDT Pt called repotting she checked her INR yesterday and it was 2.3 so she only too k 3 mg of warfarin and today it is 2.9. pt asks for call back to discuss warfari n dosing. documented in this encounter Plan of Treatment Not on filedocumented as of this encounter Goals Goal Patient Associated Recent Progress Patient-Stat Aut hor Goal Type Problems ed? [facility] On track (10/23/2020 Yes Sheldon, 1:06 [...]
--- OUTSIDE RECORDS SUMMARY | 2020-12-13 12:03 | XMS REPORT | Encounter Summary ---
Author Author [facility] Organization [facility] Address Unknown Phone Unavailable Care Team Providers Care Outsole Tacker Name Role Phone Self, Garfield OLVERA PCP Riley Hopson MD 3 Reason for Visit * Reason Comments Labs Only Encounter Details Care Team Description Date Type Department Kathryn Barbosa MA Labs Only 11/28/2020 Documentation Cardiology: [facility] 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 [facility] On track (10/23/2020 Yes Sheldon, 1:06 PM CDT) CHRYSTAL Singh documented as of this encounter Procedures Comments Procedure Name Priority Date/Time Associated Diag nosis PROTIME INR (PT) Routine 11/28/2020 Chronic heart failure with preserved ejection fraction (HCC) documented in this encounter Results * PROTIME INR (PT) (11/28/2020) INR 2.9 (H) 0.8 - 1.4 [facility] Protime 30.1 (H) 12.2 - 14.7 [facility] Specimen Blood - Blood Narrative Performed At This result has an attachment that is n ot available. Performing Organization Address City/State/ZIP Code P shane Number [facility] [address] [place] [address] documented in this encounter Visit Diagnoses Diagnosis Chronic heart failure with preserved ej ection fraction (HCC) documented in this encounter Additional Health Concerns Assessment Noted Time A fall risk assessment has been completed for the pat ient 11/21/2020 8:16 AM CDT PHQ-2 Depression Total Score: 0 08/24/2020 7:42 AM CDT documented as of this encounter
--- OUTSIDE RECORDS SUMMARY | 2020-12-13 12:03 | XMS REPORT | Encounter Summary ---
Author Author [facility] Organization [facility] Address Unknown Phone Unavailable Care Team Providers Care Superintendent Laundry Name Role Phone Self, Garfield LOVERA PCP Riley Hopson MD 3 Reason for Visit * Reason Onset Date Comments Post-hospital Follow Up 12/05/2020 72 hour post h ospital follow up call Encounter Details Care Team Description Date Type Department Mariely Chan LPN Post-hospital Follow Up (72 hour post ho spital follow up call) 12/05/2020 Telephone Cardiology: [facility] [address] [place] [address], [address] [place] [address] Social History Date Tobacco Use Types Packs/Day Years Used Never Smoker Smokeless Tobacco: Never Used Comments Alcohol Use Standard Drinks/Week Not Currently 0 (1 standard drink = 0.6 o z pure alcohol) Sex Assigned at Date Recorded 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 documented as of this encounter Functional Status Date of Assessment Functional Status Response 11/29/2020 Does the patient have a hearing impairment: [...] Telephone Encounter - Helen Waggoner RN - 12/06/2020 8:32 AM CDT Images from the original note were not included. 12/06 via my chart Zaria Paulson Patient Medical Advice Request Pool 2 hours ago (6:19 AM) I feel better today. Weight is 134.2 My heart at 119. Still a little belly. It's almost like it's connected to my bow els somehow. The pain includes around left side . If I massage it helps me go. * Telephone Encounter - Josi Purvis BSN - 12/05/2020 3:11 PM CDT Call to pt re complaints of pain under left breast. Pt states pain #4, denies S OA, denies diaphoresis, states pain does not move, denies nausea. Pt denies rep lication of pain with palpation. Pt states pain started yesterday 12/04/20. Revi ewed med rec pt taking all rx. Pt declines ER visit for EKG and eval, was just dismissed from hospital 12/04/20. B/P101/67 HR 105 Pt states HR has been elevated "for awhile". Advised pt will send a message to Niharika SIMON re her symptoms, if chest pain worsens, she becomes SOA, diap horetic, if pain moves to arm jaw or back or nausea begins to call 911. Pt verb understanding. * Telephone Encounter - Mariely Chan LPN - 12/05/2020 1:10 PM CDT Patient Discharge Date from hospital: 12/04/20 Date Call Attempted: 12/05/20 Number of Attempts: 1 Date Call Completed: 12/05/20 Next Appointment Next follow-up appointment on 12/12/20 at 1400 with Basilia Gaitan APRN at our [facility]. Transportation Yes [facility]) [phone] Fax) [phone] Medications Pt states she has all her medications and has no questions at this time. Diet 200 mg cholesterol, 2 G Na, 2 L fluid restriction Scale/Weight Yes, first morning weight today was 135.8 lbs. Signs and Symptoms Pt reports the following symptoms: Pt denies BLE edema or abdominal bloating. States SOA "is fine", SOA about the s harleen". Pt reporting LUQ pain. States "it's right under her L breast. Rates 07/01. Pt sta lilliam it is not chest pain. Describes as a achy pain that is constant until Tylyanira l kicks in. Pt states she does not think is not related to her recent rectus mus najma hematoma. Last BM was 30 minutes ago. Stool was "a little formed" and said i t is on the soft side. No dark, tarry stools or blood in stools. Pt denies gas p ain. Pt would like something for better pain control for a few days. INR will be completed by nurse tomorrow. Pt verbalized understanding of signs and symptoms of HF and when to contact a pr ovider or seek immediate assistance at the ER. Intervention(s) Routing LUQ pain concern to Dr. Longo's team. Pt educated on the importance of weighing daily first thing in the morning after voiding using the same scale in the same location and write results down in note pad or log. Notify us for weight gains of 3 lbs in one day or 5 lbs in one week. Notify us for increased SOA. Notify us for swelling or increased swelling in BLE or abdominal fullness/bloating. Call 911 for sudden, severe chest/pain pres sure/SOA develops. Be sure to make your follow up appointment and bring your glory ght logs, B/P logs, and medication list with you to your appointment. Call us at [phone] if you have any questions. Plan of Care Continued education needed for heart failure symptom management and when to cont act our office. documented in this encounter Plan of Treatment Not on filedocumented as of this encounter Goals Goal Patient Associated Recent Progress Patient-Stat Aut hor Goal Type Problems ed? [facility] On track (10/23/2020 Yes Sheldon, 1:06 PM CDT) CHRYSTAL Singh documented as of this encounter Visit Diagnoses Not on filedocumented in this encounter Additional Health Concerns Assessment Noted Time A fall risk assessment has been completed for the pat ient 12/03/2020 7:40 PM CDT PHQ-2 Depression Total Score: 0 08/24/2020 7:42 AM CDT documented as of this encounter
--- OUTSIDE RECORDS SUMMARY | 2020-12-13 12:03 | XMS REPORT | Encounter Summary ---
Author Author [facility] Organization [facility] Address Unknown Phone Unavailable Care Team Providers Care Mortgage Loan Coordinator Name Role Phone Isaac, Garfield OLVERA PCP Riley Hopson MD 3 Reason for Visit * Reason Comments Anticoagulation INR 1.7 Encounter Details Care Team Description Date Type Department Christelle Robbins RN Anticoagulation (INR 1.7) 12/06/2020 Anticoagulation Cardiology: [facility] [address] [place] [address], [address] [place] [address] Social History Date Tobacco Use Types Packs/Day Years Used Never Smoker Smokeless Tobacco: Never Used Comments Alcohol Use Standard Drinks/Week Not Currently 0 (1 standard drink = 0.6 o z pure alcohol) Sex Assigned at Date Recorded 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 Left detailed VM 12/06 to verified number of warfarin plan. My chart message sent with warfarin instructions. I asked for CB with questions or concerns. Asked for next INR to be checked on Friday 12/08 AM. documented in this encounter Plan of Treatment Not on filedocumented as of this encounter Goals Goal Patient Associated Recent Progress Patient-Stat Aut hor Goal Type Problems ed? [facility] On track (10/23/2020 Yes Sheldon, 1:06 PM CDT) CHRYSTAL Singh documented as of this encounter Procedures Comments Procedure Name Priority Date/Time Associated Diag nosis HOME INR Routine 12/06/2020 documented in this encounter Results * HOME INR (12/06/2020) INR Home 1.7 OTHER OUTSIDE LAB Specimen Narrative Performed At This result has an attachment that is n ot available. Performing Organization Address City/State/ZIP Code P shane Number OTHER OUTSIDE LAB documented in this encounter Visit Diagnoses Diagnosis Hx of [...]
--- OUTSIDE RECORDS SUMMARY | 2020-12-13 12:03 | XMS REPORT | Encounter Summary ---
Author Author [facility] Organization [facility] Address Unknown Phone Unavailable Care Team Providers Care Sand Caster Apprentice Name Role Phone Isaac, Garfield OLVERA PCP iRley Hopson MD 3 Reason for Visit * Reason Comments Anticoagulation INR 2.3 Encounter Details Care Team Description Date Type Department Blanche Padilla RN Anticoagulation (INR 2.3) 11/23/2020 Anticoagulation Cardiology: [facility] [address] [place] [address], [address] [place] [address] Social History Date Tobacco Use Types Packs/Day Years Used Never Smoker Smokeless Tobacco: Never Used Comments Alcohol Use Standard Drinks/Week Not Currently 0 (1 standard drink = 0.6 o z pure alcohol) Sex Assigned at Date Recorded 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 Pt states that she accidentally took 3mg extra of warfa rin yesterday. Pt states when she was hospitalized she bled when her INR was 2. 2 so she was told she should keep her INR goal between 1.6-2.0. RN noted in chart that Fiordaliza Harding APRN document INR goal 1.6-2.0 on 11/06/20 and Basilia Gaitan APRN did the same at the time of pt's discharge. Pt states she is afraid that she will bleed again if INR is over 2.0. She irma es any S/S of bleeding at this time. She states she knows the MD told her to steven p INR 2.0-3.0 but "that is too thin for her". She would like to have INR repeat ed tomorrow by her HHRN and she does not wish to take any warfarin today. Pt st ates she is going to eat greens now to make sure she is not too thin. She verbal izes understanding of seeking emergency medical help if she has any signs of ble eding or concerns and states she knows to dial 911. Pt also has concerns about her weight increase. See telephone note 11/23/20 for de tails. documented in this encounter Plan of Treatment [...]
--- OUTSIDE RECORDS SUMMARY | 2020-12-13 12:03 | XMS REPORT | Encounter Summary ---
Author Author [facility] Organization [facility] Address Unknown Phone Unavailable Care Team Providers Care Blueberry Grower Name Role Phone Self, Garfield OLVERA PCP Riley Hopson MD 3 Reason for Visit * Reason Comments Anticoagulation INR 1.7 Encounter Details Care Team Description Date Type Department Susan Palomino RN Anticoagulation (INR 1.7) 11/21/2020 Anticoagulation Cardiology: [facility] [address] [place] [address], [address] [place] [address] Social History Date Tobacco Use Types Packs/Day Years Used Never Smoker Smokeless Tobacco: Never Used Comments Alcohol Use Standard Drinks/Week Not Currently 0 (1 standard drink = 0.6 o z pure alcohol) Sex Assigned at Date Recorded 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 documented in this encounter Progress Notes * Allegra Gonsalves BSN - 11/21/2020 8:37 AM CDT Instructed patient on recommendations for INR. Patient insists that the hospital told her that it needs to be 1.7 (1.7-1.8) b/c of her increased bleeding if hig her. I did advise that not having her INR 2.0-3.0 as recommended by Qing urias ses her risk for blood clots. She insists that she will not change her dose. She will NOT, and brother agreed, change her dose. She states she will continue 4mg daily and will recheck INR next week. Advised that I would notify Dr. Longo of her dosage. documented in this encounter Miscellaneous Notes * Addendum Note - Allegra Gonsalves BSN - 11/21/2020 8:37 AM CDT Addended by: ALLEGRA GONSALVES on: 11/21/2020 11:15 AM Modules accepted: Orders documented in this encounter Plan of Treatment Not on filedocumented as of this encounter Goals Goal Patient Associated Recent Progress Patient-Stat Aut hor Goal Type Problems ed? [facility] On track (10/23/2020 Yes Sheldon, 1:06 [...]
--- OUTSIDE RECORDS SUMMARY | 2020-12-13 12:03 | XMS REPORT | Encounter Summary ---
Author Author [facility] Organization [facility] Address Unknown Phone Unavailable Care Team Providers Care Custom Framing Specialist Name Role Phone Self, Garfield OLVERA PCP Riley Hopson MD 3 Reason for Visit * Reason Comments Follow Up 1 week HF f/u, labs drawn p rior to OV today, abdominal bloating, constipation * Auth/Cert Referred By Contact Referred To Contact Status Reason Specialty Diagnoses / Procedures Diagnoses Acute on chronic heart failure, unspecified heart failure type (HCC) acute heart failure exacerbation Encounter Details Care Team Description Date Type Department Basilia Gaitan, IRRIGATION EQUIPMENT INSTALLER-MATERIAL REPROCESSING ASSOCIATE [address] [facility] [id number] [place] [address] Follow Up (1 week HF f/u, labs drawn owen or to OV today, abdominal bloating, constipation) 11/29/2020 [facility] 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 documented as of this encounter Last Filed Vital Signs Reading Time Taken Comments Vital Sign 102/66 11/29/2020 11:11 AM CDT Blood Pressure 89 11/29/2020 11:11 AM CDT Pulse - - Temperature - - Respiratory Rate 98% 11/29/2020 11:11 AM CDT Oxygen Saturation - - Inhaled Oxygen Concentration 72 kg (158 lb 12.8 oz) 11/29/2020 11:11 AM CDT Weight 157.5 cm (5' 2") 11/29/2020 11:11 AM CDT Height 29.04 11/29/2020 11:11 AM CDT Body Mass Index documented in [...] Patient Instructions * Patient Instructions* Basilia Gaitan APRN-TWYLA - 11/29/2020 11:30 AM CDT Thank you for coming to [facility]. Your instructions tod ay: 1. Recommendations: You are being admitted to the hospital for aggressive IV di uretic therapy 2. Next follow up appointment will be made at the time of hospital discharge For up to date information on the [...] your symptoms In a medical emergency, call 911 or go to the nearest emergency room. If you wish to contact us, please call and leave a message for the heart failure nurses at [phone]. For urgent issues after hours, on the weekends or holidays, please call to be connected with the nurse or doctor corrosion control fitter. To schedule or change an appointment call [phone]. MD Basilia Jeffers APRN Nikki Mattison, APRN Maura Janes, [facility]AL [facility] Your Heart Failure Symptom Awareness and [...] symptoms, please call the heart failure nurses: Increased shortness of breath with activity Weight gain of 3 pounds in one day or 5 pounds in a week Increased swelling in your ankles or legs Increased swelling in your stomach Increasing fatigue You may need an adjustment of your medications. Red Zone These are urgent symptoms. Please call the heart failure nurses: [phone] Sh ortness of breath at rest or waking up at night feeling short of breath or cough ing Increased number of pillows used or needing to sit upright to sleep Chest tightness at rest Dizziness, lightheadedness or feeling faint You need to schedule an appointment Emergency Zone - call 911 Worsening chest tightness or pain that is not relieved by medication Severe shortness of breath and a cough with pink, frothy sputum documented in this encounter Progress Notes * Basilia Gaitan APRN-NP - 11/29/2020 11:30 AM CDT Date of Service: 11/29/2020 Zaria Paulson is a 60 y.o. female. She is followed by Dr. Longo. HPI Zaria Paulson is seen today in a 1.5-week follow-up visit. She has chronic h eart failure with preserved ejection fraction, nonischemic cardiomyopathy, s/p a ortic valve replacement x3 (on chronic anticoagulation for mechanical valve),t ricuspid valve regurgitation, paroxysmal atrial fibrillation, hypertension, prev ious endocarditis, iron deficiency anemia -received IV iron, chronic kidney dise ase, hypothyroidism, depression, non-Hodgkins lymphoma and cirrhosis (etiology secondary to chemotherapy from treatment with non-Hodgkin lymphoma). She was recently hospitalized at [facility] with GI bleed and nontraumatic rectus hematoma. She was transferred from [facility] for left rectus muscle hematoma and active extravasation. She had previou sly been admitted at the beginning of October for GI bleed in the setting of cirr hosis and was treated with ceftriaxone and pantoprazole. Her admission INR was 2.5, 2 mg of vitamin K IV was given and her warfarin was held. The day after admission heparin drip was started due to the patient's mechanical aortic valve. The patient developed hematuria and 10 out of 10 abdominal pain. Her hemoglobin was 6.4 at this time. 1 unit of PRBCs was started but the earl ent had an episode of hypotension with SBP's in the 70s, and tachycardia in the 130s after 15 minutes of the transfusion. The transfusion was stopped and inter ventional radiology was consulted for intervention. IR performed mesenteric ang iogram and coil embolization of the left inferior epigastric artery. She receiv ed a total of 3 units PRBCs. Cardiology and hematology were consulted for antic oagulation purposes with her mechanical aortic valve. Warfarin was resumed afte r bleeding subsided with INR goal 1.62.0. She continued to have hematuria al luigi with urinary retention and urology was consulted with plan for outpatient CT urogram and cystoscopy. She did pass a voiding trial on the day of discharge w ith significant reduction in symptoms of her urge incontinence. Her WRITER PRODUCER Bumex w as reduced during her stay to 2 mg twice daily. Patient contacted our office on 11/20/2020 reporting increased weight, abdominal distention, lower extremity edema. She was instructed to increase Bumex to 3 mg twice daily and potassium chloride to 20 mEq 3 times daily. She was then seen in a post hospital visit on 11/21/2020 when she was noted to be hypervolemic and I offered heart failure diuretic infusion clinic versus hospit al admission on observation for IV diuresis and the patient declined. She was g iven Bumex 2 mg IV in the clinic with potassium replacement. Her spironolactone was restarted at 25 mg daily and Bumex continued at 3 mg twice daily. On 11/23 she reported her weight was up to 150 pounds on her scale and she was ins tructed that she could increase her Bumex to 4 mg twice daily. Zaria Paulson presents today accompanied by her . She has noticed inc reased abdominal distention, lower extremity edema, orthopnea, and dyspnea on ex ertion since her hospital discharge. Her weight on day after discharge on her h ome scale was 145 pounds and today she was 149.4 pounds. She denies any chest p ain, palpitation or heart racing, lightheadedness, syncope, or strokelike sympto ms. She reports that her hematuria is much improved with only lightly pink-ting ed urine at this point. Vitals: 11/29/20 1111 BP: 102/66 BP Source: Arm, Right Upper Patient Position: Sitting Pulse: 89 SpO2: 98% Weight: 72 kg (158 lb 12.8 oz) Height: 1.575 m (5' 2") PainSc: Zero Body mass index is 29.04 kg/m. Past Medical History Patient Active Problem List Diagnosis Date Noted Hematoma of left flank 11/15/2020 Hematoma of [...] Musculoskeletal: Negative. Gastrointestinal: Positive for bloating and constipation. Genitourinary: Negative. Neurological: Negative. Psychiatric/Behavioral: Negative. Allergic/Immunologic: Negative. Physical Exam General Appearance: In NAD Skin: warm, dry Neck Veins: >14 cm JVP, + HJR - severe TR Respiratory Effort: breathing comfortably, no respiratory distress Auscultation/Percussion: lungs diminished but clear to auscultation, bilateral l ower lobe rales, no rhonchi, no wheezing Cardiac Rhythm: regular rhythm and normal rate Cardiac Auscultation: S1, S2 normal, no rub, no definite S3 or S4 Murmurs: 3-4/6 murmur Lower Extremity Edema: 3+ bilat lower extremity edema to the knees, 1+ throughou t thighs Abdominal Exam: Distended and firm, slightly tender [...] srinath nosis, trace regurgitation. PASP 79 mmHg. Problems Addressed Today Encounter Diagnoses Name Primary? Severe tricuspid regurgitation Yes Acute on chronic heart failure with preserved ejection fraction (HCC) Aortic valve prosthesis present Paroxysmal atrial fibrillation (HCC) Stage 3b chronic kidney disease (HCC) Iron deficiency anemia due to chronic blood loss Assessment and Plan Acute on chronic Heart Failure with Preserved Ejection Fraction: -Echo on05/22/2020 showed an EF of 60%. -Today, she describes NYHA Functional ClassIVsymptoms, appears extremely hyp ervolemic by exam. Her weight was 145 pounds the day after hospital discharg e and is up to 156.4 pounds on her home scale. According to the office scale sh e is up 14 pounds since her hospital discharge 11/15. She has significant lower extremity edema -Previously scheduled for CardioMEMS on 10/20 but was hospitalized at the time, a nd now not a good candidate due to recent bleeding. > Diuretics: She is currently on Bumex 4 mg twice daily and continues to have significant hypervolemia. I recommended hospital admission for aggressive IV diuresis. Patient has agreed. >GDMT:She continues with spironolactone 25 mg daily and potassium chloride 30 mEq daily. > BMP from today is pending and will be monitored closely throughout her hospitalization. Atrial Fibrillation (Paroxysmal)/ Atrial Tachycardia/ s/p AorticValveReplace ment: -She is onmetoprolol tartrateand denies palpitations. -She is onwarfarinoral anticoagulation. Goal INR 2.03.0. (Goal had been lowered to 1.62.0 with recent hospitalization but Dr. Longo have readjusted to 2.03.0). Her anticoagulation is managed by Dr. Longo. > INR today is pending and warfarin will be adjusted by inpatient staff Severe TricuspidRegurgitation: -Her echo on 10/21/2020 showed severe tricuspid regurgitation, PA pressure 79 mmH g. >Plan is to continue to monitor with hopes that reducing her volume overload will improve her tricuspid regurgitation. Chronic Kidney Disease - StageIII: Fronek hyponatremia -Her creatinine on 11/15/2020 was 1.07. - BMP 11/21 revealed creatinine 1.2, BUN 15, sodium 131, potassium 3.7, chloride 97. > Repeat BMP today is pending Cirrhosis She follows with hepatology. > Continue spironolactone and Bumex as above Anemia Recent GI bleeding in the setting of cirrhosis early October 2020 Left rectus abdominal muscle hematoma requiring hospital admission EGD on 10/21 which revealed normal esophagus. 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 Coil embolization in IR of the left inferior epigastric artery. She required 3 units PRBC during hospitalization 11/04-8/25. INR goal reduced to 1.62.0, but most recently increased back to normal range for mechanical valve 2.03.[address] Longo. Hemoglobin 8.2 on discharge 11/15, and 8.9 on 11/21 -She denies any signs or symptoms of bleeding > CBC today is pending Hematuria Urinary retention Seen by urology during recent hospitalization with plan for outpatient CT urogra m and cystoscopy. > Follow-up appointment on 12/22/[address] urogram and cystoscopy Zaria Paulson will follow-up in the heart failure clinic after hospital disch arge. She has been encouraged to contact us prior to the next appointment with a ny questions, concerns, or worsening symptoms. Thank you for allowing me to participate in the care of this patient. If you hav e any questions please do not hesitate to contact our office. Basilia Gaitan, ANP-BC, MSN, CHFN | CVM Advance Practice Provider Heart Failure ARSALAN Coordinator [facility] | | [email or web address] [address] [facility] [address], [place] [address] Ramo Lamb Total Time Today was 55 minutes in the following activities: Preparing to see th e patient, Obtaining and/or reviewing separately obtained history, Performing a medically appropriate examination and/or evaluation, Counseling and educating th e patient/family/caregiver, Ordering medications, tests, or procedures, Document ing clinical information in the electronic or other health record and Independen tly interpreting results (not separately reported) and communicating results to the patient/family/caregiver Current Medications (including today's revisions) ascorbic acid (VITAMIN C) 500 mg tablet Take 500 mg by mouth daily. bumetanide (BUMEX) 1 mg tablet Take four tablets by mouth twice daily. calcium carbonate (OS-KRUPA) 1250 mg tablet Take 1,250 mg by mouth daily. cefdinir (OMNICEF) 300 mg capsule Take 1 capsule by mouth twice daily. ergocalciferol (VITAMIN D-2) 1,250 mcg (50,000 [...] mouth daily 30 minute s before breakfast. omeprazole DR (PRILOSEC) 40 mg capsule Take 40 mg by mouth twice daily. oxybutynin chloride (DITROPAN) 5 mg tablet Take one tablet by mouth three ti mes daily. potassium chloride SR (K-DUR) 20 mEq tablet Take 20 mEq by mouth twice daily . Take with a meal and a full glass of water. sertraline (ZOLOFT) 100 mg tablet Take 100 mg by mouth daily. spironolactone (ALDACTONE) 25 mg tablet Take one tablet by mouth daily. Take with food. VASCEPA 1 gram capsule TAKE 2 CAPSULES BY MOUTH TWICE DAILY WITH MEALS warfarin (COUMADIN) 1 mg tablet Take four tablets by mouth daily to equal 4m g dose. warfarin (COUMADIN) 4 mg tablet Take one tablet by mouth daily. documented in this encounter Plan of Treatment Not on filedocumented as of this encounter Goals Goal Patient Associated Recent Progress Patient-Stat Aut hor Goal Type Problems ed? [facility] On track (10/23/2020 Yes Sheldon, 1:06 PM CDT) CHRYSTAL Singh documented as of this encounter Visit Diagnoses Diagnosis Severe tricuspid regurgitation - Primar y Diseases of tricuspid valve Acute on chronic heart failure with pre served ejection fraction (HCC) Aortic valve prosthesis present Heart valve replaced by other means Paroxysmal atrial fibrillation (HCC) Atrial fibrillation Stage 3b chronic kidney disease (HCC) Iron deficiency anemia due to chronic b lood loss Iron deficiency anemia secondary to blo od loss (chronic) Chronic anticoagulation Long-term (current) use of anticoagulan ts documented in this encounter Orders First Ordered Date Appointment Count Last Ordered Date REQUEST FOR CARDIOLOGY APPOINTMENT 1 10/2020 documented in this encounter Additional Health Concerns Assessment Noted Time A fall risk assessment has been completed for the pat ient 11/29/2020 9:00 PM CDT PHQ-2 Depression Total Score: 0 08/24/2020 7:42 AM CDT documented as of this encounter
--- OUTSIDE RECORDS SUMMARY | 2020-12-13 12:03 | XMS REPORT | Encounter Summary ---
Author Author [facility] Organization [facility] Address Unknown Phone Unavailable Care Team Providers Care Financial Compliance Officer Name Role Phone Self, Garfield OLVERA PCP Riley Hopson MD 3 Reason for Visit * Auth/Cert Referred By Contact Referred To Contact Status Reason Specialty Diagnoses / Procedures Diagnoses Acute on chronic heart failure, unspecified heart failure type (HCC) acute heart failure exacerbation Encounter Details Care Team Description Date Type Department Basilia Gaitan, RESIDENTIAL MONITOR-THERMOFORMING MACHINE OPERATOR [address] [facility] [id number] [place] [address] [phone] 11/29/2020 [facility] [address] [address] Social History Date Tobacco Use Types Packs/Day Years Used Never Smoker Smokeless Tobacco: Never Used Comments Alcohol Use Standard Drinks/Week Not Currently 0 (1 standard drink = 0.6 o z pure alcohol) Sex Assigned at Date Recorded 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 Max of 4,000 mg of acetaminophen in 24 hours. ascorbic acid (VITAMIN C) Take 500 mg 0 500 mg tablet by mouth daily. 12/04/2020 bumetanide (BUMEX) 1 mg Take five 360 tablet 1 tabletIndications: Acute tablets by on chronic heart failure mouth twice with preserved ejection daily. fraction (HCC), Aortic valve prosthesis present calcium carbonate Take 1,250 mg 0 (OS-KRUPA) 1250 mg tablet by mouth daily. 05/09/2020 ergocalciferol (VITAMIN Take 1 0 D-2) 1,250 mcg (50,000 capsule by unit) capsule mouth every 7 days. fluticasone propionate Apply to 0 (FLONASE) 50 each nostril mcg/actuation nasal as directed spray, suspension daily. Shake bottle gently before using. 11/15/2020 hyoscyamine (ANASPAZ) Place one 180 tablet 0 0.125 mg rapid dissolve tablet under tablet tongue every 4 hours as needed. levothyroxine (SYNTHROID) Take 75 mcg 0 75 mcg tablet by mouth daily 30 minutes before breakfast. mupirocin (BACTROBAN) 2 % Apply 1 g 0 topical ointment topically to affected area three times daily. 11/15/2020 oxybutynin chloride Take one 180 tablet 0 (DITROPAN) 5 mg tablet tablet by mouth three times daily. pantoprazole DR Take 40 mg by 0 (PROTONIX) 40 mg tablet mouth twice daily. potassium chloride SR Take 20 mEq 0 (K-DUR) 20 mEq tablet by mouth twice daily. Take with a meal and a full glass of water. 12/04/2020 sertraline (ZOLOFT) 100 Take one 180 tablet 0 mg tablet tablet by mouth twice daily. 03/22/2020 VASCEPA 1 gram capsule TAKE 2 0 CAPSULES BY MOUTH TWICE DAILY WITH MEALS 12/04/2020 warfarin (COUMADIN) 1 mg Take two 120 tablet 0 tablet tablets by mouth daily. 11/24/2020 12/04/2020 bumetanide (BUMEX) 1 mg Take four 120 tablet 1 tabletIndications: Acute tablets by on chronic heart failure mouth twice with preserved ejection daily. fraction (HCC), Aortic valve prosthesis present 11/17/2020 11/30/2020 cefdinir (OMNICEF) 300 mg Take 1 0 capsuleIndications: Acute capsule by on chronic heart failure mouth twice with preserved ejection daily. fraction (HCC), Aortic valve prosthesis present 12/05/2020 12/04/2020 digoxin (LANOXIN) 125 mcg Take one 90 tablet 0 (0.125 mg) tablet tablet by mouth every 48 hours. 12/06/2020 12/12/2020 digoxin (LANOXIN) 125 mcg Take one 90 tablet 0 (0.125 mg) tablet tablet by mouth every 48 hours. 12/01/[address] (PRILOSEC) Take 40 mg by 0 40 mg capsule mouth twice daily. 12/04/2020 sertraline (ZOLOFT) 100 Take 100 mg 0 mg tablet by mouth daily. 12/04/2020 sertraline (ZOLOFT) 25 mg Take 25 mg by 0 tablet mouth daily. 12/04/2020 12/12/2020 spironolactone Take one 90 tablet 1 (ALDACTONE) 100 mg tablet by tabletIndications: Acute mouth daily. on chronic heart failure Take with with preserved ejection food. fraction (HCC), Aortic valve prosthesis present 11/21/2020 12/04/2020 spironolactone Take one 30 tablet 11 (ALDACTONE) 25 mg tablet by tabletIndications: Acute mouth daily. on chronic heart failure Take with with preserved ejection food. fraction (HCC), Aortic valve prosthesis present 12/04/2020 12/04/2020 warfarin (COUMADIN) 1 mg Take two 120 tablet 0 tablet tablets by mouth daily. Take four tablets by mouth daily to equal 4mg dose. 11/15/2020 12/04/2020 warfarin (COUMADIN) 1 mg Take four 120 tablet 0 tablet tablets by mouth daily to equal 4mg dose. 11/21/2020 12/04/2020 warfarin (COUMADIN) 4 mg Take one 90 tablet 1 tablet tablet by mouth daily. documented as of this encounter Discharge Disposition Code Departure Means Destination Disposition Home Home or Self Care documented in this encounter Plan of Treatment Not on filedocumented as of this encounter Goals Goal Patient Associated Recent Progress Patient-Stat Aut hor Goal Type Problems ed? [place] On track (10/23/2020 Yes [place], 1:06 PM CDT) CHRYSTAL Singh documented as of this encounter Procedures Comments Procedure Name Priority Date/Time Associated Diag nosis HC IRON BINDING CAPACITY Routine 11/29/2020 Iron deficiency anemia, + %SAT 10:40 AM CDT unspecified iron deficiency anemia type HC PT(INR) Routine 11/29/2020 Chronic heart f ailure 10:40 AM CDT with preserved ejection fraction (HCC) HC CBC W/ AUTOMATED DIFF Routine 11/29/2020 Iron deficiency anemia, 10:40 AM CDT unspecified iron deficiency anemia type HC PHOSPHOROUS, SERUM Add on 11/29/2020 10:40 AM CDT HC MAGNESIUM Add on 11/29/2020 10:40 AM CDT HC BASIC METABOLIC PANEL Routine 11/29/2020 Hemat ochezia 10:40 AM CDT Gastrointestinal hemorrhage, unspecified gastrointestinal hemorrhage type Atrial tachycardia (HCC) documented in this encounter Results * PHOSPHORUS (11/29/2020 10:40 AM CDT) Phosphorus 2.7 2.0 - 4.5 MG/DL [facility] Specimen Performing Organization Address City/[facility] Code P shane Number [facility] [address] [place] [address] * MAGNESIUM (11/29/2020 10:40 AM CDT) Magnesium 1.6 1.6 - 2.6 mg/dL [facility] Specimen Performing Organization Address City/[facility] P shane Number [facility] [address] [place] [address] * BASIC METABOLIC PANEL (11/29/2020 10:40 AM CDT) Sodium 133 (L) 137 - 147 MMOL/L [facility] Potassium 3.7 3.5 - 5.1 MMOL/L [facility] Chloride 99 98 - 110 MMOL/L [facility] CO2 24 21 - 30 MMOL/L [facility] Anion Gap 10 3 - 12 [facility] Glucose 121 (H) 70 - 100 MG/DL [facility] Blood Urea 17 7 - 25 MG/DL [facility] Nitrogen Creatinine 1.03 (H) 0.4 - 1.00 MG/DL [facility] Calcium 8.5 8.5 - 10.6 MG/DL [facility] eGFR Non 55 (L) >60 mL/min [facility] Comment: [place] The eGFR is not validated f or use in drug dosing adjustments. Continue to use estimated creatinine clearance per dosing reference text. Please contact the Clinical Pharmacist for questions. eGFR >60 >60 mL/min [facility] [place] Comment: The eGFR is not validated for use in drug dosing adjustments. Continue to use estimated creatinine clearance per dosing reference text. Please contact the Clinical Pharmacist for questions. Specimen Blood Performing Organization Address City/State/ZIP Code P shane Number [facility] [address] [place] [address] * CBC AND DIFF (11/29/2020 10:40 AM CDT) White Blood 7.5 4.5 - 11.0 K/UL [facility] Cells RBC 2.84 (L) 4.0 - 5.0 M/UL [facility] Hemoglobin 8.7 (L) 12.0 - 15.0 GM/DL [facility] Hematocrit 26.5 (L) 36 - 45 % [facility] MCV 93.3 80 - 100 FL [facility] MCH 30.5 26 - 34 PG [facility] MCHC 32.7 32.0 - 36.0 G/DL [facility] RDW 18.6 (H) 11 - 15 % [facility] Platelet Count 370 150 - 400 K/UL [facility] MPV 6.9 (L) 7 - 11 FL [facility] Neutrophils 86 (H) 41 - 77 % [facility] Lymphocytes 4 (L) 24 - 44 % [facility] Monocytes 7 4 - 12 % [facility] Eosinophils 2 0 - 5 % [facility] Basophils 1 0 - 2 % [facility] Absolute 6.45 1.8 - 7.0 K/UL [facility] Neutrophil Count Absolute Lymph 0.28 (L) 1.0 - 4.8 K/UL [facility] Count Absolute 0.56 0 - 0.80 K/UL [facility] Monocyte Count Absolute 0.18 0 - 0.45 K/UL [facility] Eosinophil Count Absolute 0.07 0 - 0.20 K/UL [facility] Basophil Count Specimen Blood Performing Organization Address City/[facility] Code P shane Number [facility] [address] [place] [address] * IRON + BINDING CAPACITY + %SAT+ FERRITIN (11/29/2020 10:40 AM CDT) Iron 23 (L) 50 - 160 MCG/DL [facility] Iron 331 270 - 380 MCG/DL [facility] Binding-TIBC % Saturation 7 (L) 28 - 42 % [facility] Ferritin 112 10 - 200 NG/ML [facility] Specimen Blood Performing Organization Address City/[facility] Code P shane Number [facility] [address] [place] [address] * PROTIME INR (PT) (11/29/2020 10:40 AM CDT) INR 4.1 (H) 0.8 - 1.2 [facility] Specimen Blood Performing Organization Address [facility] P shane Number [facility] [address] [place] [address] documented in this encounter Visit Diagnoses Diagnosis Chronic heart failure with preserved ej ection fraction (HCC) Iron deficiency anemia, unspecified iro n deficiency anemia type Hematochezia Blood in stool Gastrointestinal hemorrhage, unspecifie d gastrointestinal hemorrhage type Atrial tachycardia (HCC) Other specified cardiac dysrhythmias documented in this encounter Additional Health Concerns Assessment Noted Time A fall risk assessment has been completed for the pat ient 11/29/2020 9:00 PM CDT PHQ-2 Depression Total Score: 0 08/24/2020 7:42 AM CDT documented as of this encounter
--- OUTSIDE RECORDS SUMMARY | 2020-12-13 12:03 | XMS REPORT | Encounter Summary ---
Author Author [facility] Organization [facility] Address Unknown Phone Unavailable Care Team Providers Care Clinical Manager Home Care Name Role Phone Self, Garfield OLVERA PCP Riley Hopson MD 3 Reason for Visit * Reason Comments Anticoagulation INR 1.9 Encounter Details Care Team Description Date Type Department Helen Waggoner RN Anticoagulation (INR 1.9) 11/24/2020 Anticoagulation Cardiology: [facility] [address] [place] [address] [address], [address] [place] [address] Social History Date Tobacco Use Types Packs/Day Years Used Never Smoker Smokeless Tobacco: Never Used Comments Alcohol Use Standard Drinks/Week Not Currently 0 (1 standard drink = 0.6 o z pure alcohol) Sex Assigned at Date Recorded Female 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 Ybarra. INR today 1.9. Therapeutic per patient INR goal. Pt to take warfarin 4 mg daily. Spoke with patient and spouse of therapy plan, verbalized understanding. Pt woul d like to have INR checked tomorrow, Friday, 11/25 by . Informed on-call car diology team will need to be called with any questions pertaining to INR if chec ked over the weekend, provided on-call cardiology number [phone]. Pt and sp ouse verbalized understanding. Informed Dr. Longo's team will be back in clinic on Friday, 11/28. Verbalized understanding. No questions or concerns at this ti me. documented in this encounter Plan of Treatment Not on filedocumented as of this encounter Goals Goal Patient Associated Recent Progress Patient-Stat Aut hor Goal Type Problems ed? [facility] On track (10/23/2020 Yes [place], 1:06 PM CDT) CHRYSTAL Singh documented as [...]
--- OUTSIDE RECORDS SUMMARY | 2020-12-13 12:03 | XMS REPORT | Encounter Summary ---
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
--- OUTSIDE RECORDS SUMMARY | 2020-12-13 12:03 | XMS REPORT | Encounter Summary ---
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 Name Role Phone Self, Garfield OLVERA PCP Riley Hopson MD 3 Reason for Referral * Consultation (Discharge Pending) Referred By Contact Referred To Contact Status Reason Specialty Diagnoses / Procedures Diya Fagan MD [address] [place] [address] [address] [address] [facility] [address] [address], [address] [place] [address] Pending Review Cardiology Procedures APPOINTMENT REQUEST: CARDIOLOGY HEART FAILURE Electronically signed by Diya Fagan MD at Reason for Visit * Auth/Cert Referred By Contact Referred To Contact Status Reason Specialty Diagnoses / Procedures Diagnoses Acute on chronic heart failure, unspecified heart failure type (HCC) acute heart failure exacerbation Encounter Details Care Team Description Date Type Department Maggi Atkinson MD [address] [place] [address] [phone] Berna Walton MD [address] [place] [address] [phone] Ja George MD [address] [place] [address] [phone] Diya Fagan MD [address] [place] [address] [phone] Acute on chronic heart failure (HCC) 11/29/2020 Hospital Patient Care Unit H C5: - Encounter [facility] 12/04/2020 Care [address] [facility] [address] [place] [id number] Social History Date Tobacco Use Types Packs/Day Years Used Never Smoker Smokeless Tobacco: Never Used Comments Alcohol Use Standard Drinks/Week Not Currently 0 (1 standard drink = 0.6 o z pure alcohol) Sex Assigned at Date Recorded Female 06/01/2020 1:44 PM [employer] Date Recorded COVID-19 Exposure Response 11/29/2020 10:38 AM CDT In the last month, have you been in contact with No / Unsure someone who was confirmed or suspected to have Coronavirus / COVID-19? documented as of this encounter Last Filed Vital Signs Reading Time Taken Comments Vital Sign 98/62 12/04/2020 8:15 AM CDT Blood Pressure 99 12/04/2020 8:15 AM CDT Pulse 36.8 C (98.3 F) 12/04/2020 8:15 AM CDT Temperature - - Respiratory Rate 99% 12/04/2020 8:15 AM CDT Oxygen Saturation - - Inhaled Oxygen Concentration 61.1 kg (134 lb 12.8 oz) 12/04/2020 5:00 AM CDT Weight 157.5 cm (5' 2") 11/30/2020 5:19 AM CDT Height 24.66 11/30/2020 5:19 AM CDT Body Mass Index documented in [...] as of this encounter Discharge Summaries * Diya Fagan MD - 12/04/2020 11:05 AM CDT Discharge Summary Name: Zaria Paulson Date Of : 1960 Age: 60 years Admit date: 11/29/2020 Discharge date: 12/04/2020 Discharge Attending: Diya Fagan MD Discharge Summary Completed By: Diya Fagan MD Service: [facility] D- [id number] Reason for hospitalization: Acute on chronic heart failure, unspecified heart failure type (HCC) [I50.9] Primary Discharge Diagnosis: Same as Above Hospital Diagnoses: Hospital Problems Active Problems * (Principal) Acute on chronic heart failure (HCC) Severe tricuspid regurgitation Hx of mechanical aortic valve replacement Chronic anticoagulation Iron deficiency anemia Cirrhosis (HCC) Paroxysmal atrial fibrillation (HCC) Stage 3b chronic kidney disease (HCC) Acute on chronic right heart failure (HCC) Hyponatremia Acute on chronic diastolic (congestive) heart failure (HCC) Significant Past Medical History Cancer (HCC) Comment: Non- hodgkins lymphoma, chemo Disorder of thyroid gland Hypertension Iron deficiency anemia Iron deficiency anemia Allergies Patient has no known allergies. Brief Hospital Course Ms. Paulson is a 60yo F with a PMH of cirrhosis from unclear etiology, non-ischem ic cardiomyopathy, chronic heart failure with preserved ejection fraction, mecha nical aortic valve on warfarin, paroxysmal atrial fibrillation, remote hx of lym phoma and left rectus abdominal muscle hematoma who presented to cardiology clin ic 11/29 with weight gain. Acute on chronic RV failure and diastolic heart failure- improved Severe TR Non-ischemic cardiomyopathy - Follows with Dr. Bustillo, was previously scheduled for CardioMEMS 10/20 b ut was admitted for GIB - 10/21/20 echo: LVEF 60%, RV moderate dilated, severe biatrial dilatation, well -seated prosthesis in AV, torrential TR, markedly elevated CVP - PROJECT GEOPHYSICIST Bumex 3mg BID and spironolactone; increased to Bumex 4mg BID on 11/23 due to weight gain - Dry weight ~135lbs (discharged weight 151 on 11/21) - Weight on admission: 159 - TTE with normal LVEF 55%, severely dilated RV with severely reduced function, severe biatrial dilation, severe TR, markedly elevated CVP, stable position of t he AV. > initially on bumex drip. transitioned to PO bumex 5mg BID. > spironolactone dose increased to 100mg > Cardiology HF following > Poor overall prognosis with liver and heart disease, Lengthy discussion with patient on 12/[address] Lamb informing her of poor prognosis and potential life span of less than 1 year. Appreciate Palliative care assistance. No changes in code status or goals of care for now, however patient understanding of her prognosis. Mechanical aortic valve -Implanted 2010 - warfarin 4 mg daily - INR 4.1 on admission > Continue Warfarin with lower goal 2.0-2.5 given recent GI bleed (not usual 2.5-3.5 for mechnical valve). (patient reports her goal 1.7-2.0) > next INR check 12/06 through her [employer] office. Paroxysmal atrial fibrillation - Went into AF with RVR during 10/20-10/26 admission, given metoprolol and amiod arone likely 2/2 active GIB - Was not discharged on anti-arrhythmic therapy > BB discontinued given severe RV failure > Digoxin started 11/30 for HR control and RV support, 125 mcg every other day. Next level ~ 12/14. Anemia; stable Resolved: L flank/hip hematoma and Left rectus abdominal hematoma - 11/04/20 CT a/p: complex enlargement and fluid collection within the left rect us abdominal muscle extending into the retroperitoneum and left pelvic musculatu re suggestive of active extravasation - 11/05/2020: Patient had episode of hematuria with drop in hemoglobin to 6.5. Became hypotensive following blood transfusion, repeat hemoglobin of 4.5, IR rkupa led, patient taken for embolization of inferior epigastric artery on 11/06/2020 - CT a/p 11/08/20 -stable slight improvement of left hemipelvis rectus hematoma, small to moderate simple abdominal and pelvic ascites, cirrhosis, small right pl eural effusion, mild body wall edema, no mention of retroperitoneal hemorrhage - Hgb 8.7 on admission and stable from 11/21 - INR 4.1 on admission - Iron deficiency present on labs on admission - Patient denies hematemesis, melena, hematochezia, worsening hematoma. > S/p Iron infusion Cirrhosis Hx of colonic AVMs - Follows with Dr. Marti - Patient reports no history of esophageal varices > Paracentesis 12/02, 6.3L removed. Remote hx of lymphoma - s/p chemotherapy in 2004 Anxiety/Depression - PROJECT GEOPHYSICIST zoloft, increase to 100mg BID. Items Needing Follow Up Pending items or areas that need to be addressed at follow up: as above Pending Labs and Follow Up Radiology Pending labs and/or radiology review at this time of discharge are listed below: if this area is blank, there are no items for review. Medications Medication List START taking these medications digoxin 125 mcg (0.125 mg) tablet; Commonly known as: LANOXIN; Dose: 125 mcg; Take one tablet by mouth every 48 hours.; Quantity: 90 tablet; Refills: 0; Start taking on: December 06, 2020 CHANGE how you take these medications bumetanide 1 mg tablet; Commonly known as: BUMEX; Dose: 5 mg; Take five tablets by mouth twice daily.; Quantity: 360 tablet; Refills: 1; What changed: how much to take sertraline 100 mg tablet; Commonly known as: ZOLOFT; Dose: 100 mg; Take one tablet by mouth twice daily.; Quantity: 180 tablet; Refills: 0; What changed: when to take this, Another medication with the same name was removed. Continue taking this medication, and follow the directions you see here. spironolactone 100 mg tablet; Commonly known as: ALDACTONE; Dose: 100 mg; Take one tablet by mouth daily. Take with food.; Quantity: 90 tablet; Refills: 1; What changed: medication strength, how much to take warfarin 1 mg tablet; Commonly known as: COUMADIN; Dose: 2 mg; Take two tablets by mouth daily.; Quantity: 120 tablet; Refills: 0; What changed: how much to take, how to take this, when to take this, additional instructions, Another medication with the same name was removed. Continue taking this medication, and follow the directions you see here. CONTINUE taking these medications acetaminophen 500 mg tablet; Commonly known as: TYLENOL EXTRA STRENGTH; Dose: 500 mg; Refills: 0 ascorbic acid 500 mg tablet; Commonly known as: VITAMIN C; Dose: 500 mg; Refills: 0 calcium carbonate 1250 mg tablet; Commonly known as: OS-KRUPA; Dose: 1,250 mg; Refills: 0 ergocalciferol (vitamin D2) 1,250 mcg (50,000 unit) capsule; Commonly known as: DRISDOL; Dose: 1 capsule; Refills: 0 fluticasone propionate 50 mcg/actuation nasal spray, suspension; Commonly known as: FLONASE; Refills: 0 hyoscyamine 0.125 mg rapid dissolve tablet; Commonly known as: ANASPAZ; Dose: 0.125 mg; Place one tablet under tongue every 4 hours as needed.; Quantity: 180 tablet; Refills: 0 levothyroxine 75 mcg tablet; Commonly known as: SYNTHROID; Dose: 75 mcg; Refills: 0 mupirocin 2 % topical ointment; Commonly known as: BACTROBAN; Dose: 1 g; Refills: 0 oxybutynin chloride 5 mg tablet; Commonly known as: DITROPAN; Dose: 5 mg; Take one tablet by mouth three times daily.; Quantity: 180 tablet; Refills: [address] 40 mg tablet; Commonly known as: PROTONIX; Dose: 40 mg; Refills: 0 potassium chloride SR 20 mEq tablet; Commonly known as: K-DUR; Dose: 20 mEq; Refills: 0 VASCEPA 1 gram capsule; Generic drug: icosapent ethyL; Refills: 0 Return Appointments and Scheduled Appointments Scheduled appointments: Dec 07, 2020 3:30 PM Office visit with HOSSEIN Pascal Transplant: [facility] ([facility]) [address] [facility] [address] [facility] [address] Dec 12, 2020 2:00 PM Hospital follow-up visit with HOSSEIN Chavez Cardiology: [facility] (CVM Exam) [address] [facility] [address] Dec 22, 2020 2:[address] UROGRAM (SCHED ONLY) with CT-MOB Imaging, CT: [facility] (MOB Radiology) [address] [facility] [address] [facility] [address] Dec 22, 2020 3:30 PM Procedure with Fernie Abreu MD, UROLOGY PROCEDURE RM 1 Urology: [facility] (Urology) [address] [facility] [id number] Consults, Procedures, Diagnostics, Micro, Pathology Consults: Cardiology and Palliative Care Surgical Procedures & Dates: None Significant Diagnostic Studies, Micro and Procedures: noted in brief hospital co urse Significant Pathology: none Nutrition: No Dietitian Consult Discharge Disposition, Condition Patient Disposition: Home with Home Health Care Condition at Discharge: Stable Code Status Code Status History Date Active Date Inactive Code Status Order ID 11/29/2020 [id number] 12/04/2020 1317 Full Code [id number] Berna Walton MD [facility] 11/29/2020 1532 11/29/2020 1859 Full Code [id number] Berna Walton MD Inpatient Only showing the last 2 code statuses. Patient Instructions DIGOXIN LEVEL Standing Status: Future Standing Exp. Date: 12/04/21 Which provider would you like to CC? BASILIA SEQUEIRA [[id number]] Which provider would you like to CC? NITISH STARR [[id number]] Release to patient Immediate BASIC METABOLIC PANEL Standing Status: Future Standing Exp. Date: 12/04/21 Which provider would you like to CC? BASILIA SEQUEIRA [[id number]] Which provider would you like to CC? NITISH STARR [[id number]] Release to patient Immediate PROTIME INR (PT) Standing Status: Standing Number of Occurrences: 99 Standing Exp. Date: 12/04/21 Please draw level on Friday12/06/20. Please fax it to Dr. Nitish Starr/Basilia Sequeira APRN. Please fax results to: [phone] Release to patient Immediate Cardiac Diet Limiting [...] may contact a dietitian magalys gasca . Fluid Restrictions Limit the amount of your daily fluids to 2000ml (milliliters). This is equal t o about 8 cups a day.. If you have questions about your diet after you go home, you can call a dietitia n at [phone]. Activity as Tolerated It is important to keep increasing your activity level after you leave the hosp ital. Moving around can help prevent blood clots, lung infection (pneumonia) an d other problems. Gradually increasing the number of times you are up moving ar ound will help you return to your normal activity level more quickly. Continue to increase the number of times you are up to the chair and walking daily to ret urn to your normal activity level. Begin to work toward your normal activity lev el at discharge Report These Signs and Symptoms Please contact your doctor if you have any of the following symptoms: temperatu re higher than 100 degrees F, uncontrolled pain, persistent nausea and/or vomiti ng, difficulty breathing, chest pain, severe abdominal pain, headache, unable to urinate, unable to have bowel movement or drainage with a foul odor Questions About Your Stay For questions or concerns regarding your hospital stay Call [phone]. If yo u have an emergency, do not call this number,and please dial 911. For non-urgent matters, please call during normal business hours- this will help direct your c all to a physician more familiar with your care and needs Please note: * your hospital physicians will not be managing your ongoing outpatient care. Bassem del rosario direct all calls regarding ongoing outpatient care to your primary care ph ysician whenever possible. * Do not call this number to request pain medications. No pain medications will be filled nor refilled by calling this number. * All refill requests should be directed to your primary care provider. Discharging attending physician: DIYA FAGAN [[id number]] Warfarin Information WARFARIN INFORMATION Notify your [employer] office at discharge that you have an INR due on 12/07/19. If you are not notified on the day of your INR draw with the result and your dosage instructions, please call your doctor's office to get this information. Medication regimen: You will be discharged on warfarin. Warfarin is a blood thinner medication. Th e dose you are currently taking may change based on blood levels/INR upon follow -up. It is very important to continue taking the medication as prescribed. Do not change your dose unless instructed by a healthcare professional. Warfarin r equires monitoring of blood levels/INR on a regular basis. You should tell your healthcare professionals that you take warfarin. Follow-up: Follow-up on all scheduled appointments. Warfarin dosing may change based on yo ur blood level/INR. If not done already, you will want to schedule an appointme nt after discharge to follow-up on your blood levels/INR. You may need to follo w-up multiple times during the first several weeks after hospital discharge. Drug Interactions: Talk with your healthcare professional prior to starting or stopping any medicat ions. This includes prescription, [id number], natural supplements, vitami ns, and minerals. Many medications may increase or decrease your blood level/IN R. Dietary Advice: Certain foods with vitamin K may alter the effects of warfarin. Green, leafy ve getables (examples: broccoli, spinach, kale) are some vegetables that may change blood levels/INR. It is important to keep a consistent diet. Avoid any major changes in diet when taking warfarin. Please notify a health professional befor e changing your eating habits. Adverse Reactions: The most common reaction seen with warfarin is an increased risk of bleeding. B ruising may also be a common occurrence while taking this medication. Reasons to go to the emergency department: *Falling/hitting your head, with periods of headaches, vision changes, dizziness , loss of consciousness *Heavy pressure on your chest, difficulty breathing, shortness of breath. This may be a sign of a clot in your lungs. *Blood-tinged vomiting, or what looks like coffee-grounds. This may be a sign o f a stomach bleed. *Bright red urine. This may be a sign of a bleed in your bladder. *Extreme temperature changes, swelling, and pain in your thighs. This may be a sign of a clot in your legs. Additional Orders: Case Management, Supplies, Home Health Home Health/DME HOME HEALTH/DME ONCE Comments: Home Health/Durable Medical Equipment Order Details Patient Name: Zaria Paulson 83 Agency Instructions: Patient now stable for discharge, please resume previous home health services. R N Evaluate and treat., Start of care within 24-48 hours of hospital discharge, a nticipated discharge 12/04/2020. RN to complete general assessment, including vitals with temperature, monitor an d teach patient and/or caregiver medication management and compliance, monitor a nd teach pain management and pain medication compliance when necessary. Monitor and teach signs and symptoms of infection, monitor and teach disease management, including signs and symptoms, diet, who and when to call, hospital readmission avoidance., Labs: INR on 12/07/[address] Starr/ Basilia Sequeira [phone] Digoxin level, BMP 12/14/[address] Starr / Basilia Sequeira 1. Perform cardiopulmonary assessment to identify any s/s of heart failure, util ize HF Zone Sheet to guide daily assessment along with daily weights. Please pos t HF Zone Sheet in patient's home, and review with each visit regarding s/s. Ass essment should include evaluation of the following: Perform auscultation of lungs Presence of dyspnea Increased fatigue Worsening edema/swelling (peripheral edema, sacral edema, etc) Abdominal distention/bloating Paroxysmal nocturnal dyspnea Presence of jugular vein distention (JVD) Weight gain Dizziness/lightheadedness Shortness of breath at rest Chest tightness at rest 2. Have patient weigh daily (standing scale preferred), please contact Dr. Shannan [facility] for a weight gain of 3lbs in 1 day or 5lbs in a week . 3. Provide ongoing HF patient and family education. 4. Provide ongoing medication management. 5. Encourage patient to follow a low sodium, 2,000mg restricted diet to decrease the risk for volume overload. 6. Encourage patient to be as active as possible per patient tolerance. 7. If available provide Telehealth monitoring of daily weights, blood pressure, and O2 sat monitoring. 8. Patient has post hospital follow up appointment within 7 calendar days of DC. Please see After Visit Summary for scheduled appointments. Reinforce appointmen t compliance and remind pt. to bring medications to follow up visit. Clinical findings to support homebound status: Poor tolerance for activity Clinical findings to support home care services: Unstable clinical condition and Deficits in medical management Question Answer Comment Attending Name/Contact [facility] Diya [facility] [phone] / [phone] PCP Name/Contact Dr. Garfield Gray [phone]/ [phone] Specialist Name/Contact Dr. Katharine SPARKS [facility] Cardiology Heart Failure Home Health to Follow as previous Signed: Diya Fagan MD 12/04/2020 cc: Primary Care Physician: Garfield Gray Verified Referring physicians: Garfield Gray MD Additional provider(s): Did we miss something? If additional records are needed, please fax a request on office letterhead to [phone]. Please include the patient's name, date of b irth, fax number and type of information needed. Additional request can be made by email at [email or web address]. For general questions of information about electronic records sharing, call [phone]. documented in this encounter Medications at Time [...] tablet 0 tablet tablets by mouth daily. 12/06/2020 12/12/2020 digoxin (LANOXIN) 125 mcg Take one 90 tablet 0 (0.125 mg) tablet tablet by mouth every 48 hours. 12/04/2020 12/12/2020 spironolactone Take one 90 tablet 1 (ALDACTONE) 100 mg tablet by tabletIndications: Acute mouth daily. on chronic heart failure Take with with preserved ejection food. fraction (HCC), Aortic valve prosthesis present documented as of this encounter Ordered Prescriptions Start Date End Date Prescription Sig Dispensed Refills 12/04/2020 warfarin (COUMADIN) 1 mg Take two 120 tablet 0 tablet tablets by mouth daily. 12/04/2020 sertraline (ZOLOFT) 100 Take one 180 tablet 0 mg tablet tablet by mouth twice daily. 12/04/2020 bumetanide (BUMEX) 1 mg Take five 360 tablet 1 tabletIndications: Acute tablets by on chronic heart failure mouth twice with preserved ejection daily. fraction (HCC), Aortic valve prosthesis present 12/06/2020 12/12/2020 digoxin (LANOXIN) 125 mcg Take one 90 tablet 0 (0.125 mg) tablet tablet by mouth every 48 hours. 12/05/2020 12/04/2020 digoxin (LANOXIN) 125 mcg Take one 90 tablet 0 (0.125 mg) tablet tablet by mouth every 48 hours. 12/04/2020 12/04/2020 warfarin (COUMADIN) 1 mg Take two 120 tablet 0 tablet tablets by mouth daily. Take four tablets by mouth daily to equal 4mg dose. 12/04/2020 12/12/2020 spironolactone Take one 90 tablet 1 (ALDACTONE) 100 mg tablet by tabletIndications: Acute mouth daily. on chronic heart failure Take with with preserved ejection food. fraction (HCC), Aortic valve prosthesis present documented in this encounter Discharge Disposition Code Departure Means Destination Disposition Wheelchair Home or Self Care documented in this encounter Progress Notes * Diya Fagan MD - 12/04/2020 11:05 AM CDT General Progress Note Name: Zaria Paulson Today's Date: 12/04/2020 Admission Date: 11/29/2020 LOS: 5 days Assessment/Plan: Principal Problem: Acute on chronic heart failure (HCC) Active Problems: Chronic heart failure with preserved ejection fraction (HCC) Severe tricuspid regurgitation Hx of mechanical aortic valve replacement Chronic anticoagulation Iron deficiency anemia Cirrhosis (HCC) Paroxysmal atrial fibrillation (HCC) Stage 3b chronic kidney disease (HCC) RVF (right ventricular failure) (HCC) Hyponatremia Ms. Paulson is a 60yo F with a PMH of cirrhosis from unclear etiology, non-ischem ic cardiomyopathy, chronic heart failure with preserved ejection fraction, mecha nical aortic valve on warfarin, paroxysmal atrial fibrillation, remote hx of lym phoma and left rectus abdominal muscle hematoma who presented to cardiology clin ic 11/29 with weight gain. Acute on chronic heart failure with preserved ejection fraction - improved Severe TR Non-ischemic cardiomyopathy - Follows with Dr. Bustillo, was previously scheduled for CardioMEMS 10/20 b ut was admitted for GIB - 10/21/20 echo: LVEF 60%, RV moderate dilated, severe biatrial dilatation, well -seated prosthesis in AV, torrential TR, markedly elevated CVP - PROJECT GEOPHYSICIST Bumex 3mg BID and spironolactone; increased to Bumex 4mg BID on 11/23 due to weight gain - Dry weight ~135lbs (discharged weight 151 on 11/21) - Weight on admission: 159 - TTE with normal LVEF 55%, severely dilated RV with severely reduced function, severe biatrial dilation, severe TR, markedly elevated CVP, stable position of t he AV. > initially on bumex drip. transitioned to PO bumex 5mg BID. > spironolactone dose increased to 100mg > Cardiology HF following > Poor overall prognosis with liver and heart disease, Lengthy discussion with patient on 12/[address] Lamb informing her of poor prognosis and potential life span of less than 1 year. Appreciate Palliative care assistance. No changes in code status or goals of care for now, however patient understanding of her prognosis. Mechanical aortic valve -Implanted 2010 - PROJECT GEOPHYSICIST warfarin 4 mg daily - INR 4.1 on admission > Continue Warfarin with lower goal 2.0-2.5 given recent GI bleed (not usual 2.5-3.5 for mechnical valve). (patient reports her goal 1.7-2.0) > next INR check 12/06 through her [employer] office. Paroxysmal atrial fibrillation - Went into AF with RVR during 10/20-10/26 admission, given metoprolol and amiod arone likely 2/2 active GIB - Was not discharged on anti-arrhythmic therapy > BB discontinued given severe RV failure > Digoxin started 11/30 for HR control and RV support, 125 mcg every other day. Next level ~ 12/14. Anemia; stable Resolved: L flank/hip hematoma and Left rectus abdominal hematoma - 11/04/20 CT a/p: complex enlargement and fluid collection within the left rect us abdominal muscle extending into the retroperitoneum and left pelvic musculatu re suggestive of active extravasation - 11/05/2020: Patient had episode of hematuria with drop in hemoglobin to 6.5. Became hypotensive following blood transfusion, repeat hemoglobin of 4.5, IR krupa led, patient taken for embolization of inferior epigastric artery on 11/06/2020 - CT a/p 11/08/20 -stable slight improvement of left hemipelvis rectus hematoma, small to moderate simple abdominal and pelvic ascites, cirrhosis, small right pl eural effusion, mild body wall edema, no mention of retroperitoneal hemorrhage - Hgb 8.7 on admission and stable from 11/21 - INR 4.1 on admission - Iron deficiency present on labs on admission - Patient denies hematemesis, melena, hematochezia, worsening hematoma. > S/p Iron infusion Cirrhosis Hx of colonic AVMs - Follows with Dr. Marti - Patient reports no history of esophageal varices > Paracentesis 12/02, 6.3L removed. Remote hx of lymphoma - s/p chemotherapy in 2004 Anxiety/Depression - PROJECT GEOPHYSICIST zoloft, increase to 100mg BID. Discharge home today with close follow up with Cardiology. total of 40 minutes spent coordinating patient discharge today. Diya Fagan MD Med Private D, Team Pager [phone] Subjective No events overnight. Patient continues to feel well in general and has no new co mplaints. ready to go home. Medications Scheduled Meds:Continuous Infusions: PRN and Respiratory Meds: Objective: Vital Signs: Last Filed Vital Signs: 24 Miguel r Range BP: 98/62 (12/04 814) Temp: 36.8 C (98.3 F) (12/04 814) Pulse: 99 (12/04 814) Respirations: 18 PER MINUTE (12/04 814) SpO2: 99 % (12/04 814) BP: (91-103)/(52-63) Temp: [36.7 C (98.1 F)-36.8 C (98.3 F)] Pulse: [98-99] Respirations: [18 PER MINUTE-20 PER MINUTE] SpO2: [97 %-99 %] Vitals: 12/02/20 0543 12/03/20 0630 12/04/20 0500 Weight: 68.1 kg (150 lb 3.2 oz) 61.6 kg (135 lb 12.8 oz) 61.1 kg (134 lb 12.8 oz ) Intake/Output Summary: (Last 24 hours) Intake/Output Summary (Last 24 hours) at 12/04/20202003 Last data filed at 12/04/2020 0815 Gross per 24 hour Intake 480 ml Output 1150 ml Net -670 ml Stool Occurrence: 1 Physical Exam unchanged Lab Review Pertinent labs reviewed Point of Care Testing (Last 24 hours) Glucose: (!) 106 (12/04/20 0352) Radiology and other Diagnostics Review: Pertinent radiology reviewed. * Melissa Newberry PA-C - 12/04/2020 11:05 AM CDT Heart Failure Progress note NAME:Zaria Paulson :1960 AGE: 60 y.o. ADMISSION DATE: 11/29/2020 DAYS ADMITTED: LOS: 5 days Principal Problem: Acute on chronic heart failure (HCC) Active Problems: Chronic heart failure with preserved ejection fraction (HCC) Severe tricuspid regurgitation Hx of mechanical aortic valve replacement Chronic anticoagulation Iron deficiency anemia Cirrhosis (HCC) Paroxysmal atrial fibrillation (HCC) Stage 3b chronic kidney disease (HCC) RVF (right ventricular failure) (HCC) Hyponatremia Zaria Paulson is a 60 y.o. female with chronic heart failure with preserved e jection fraction 55%, nonischemic cardiomyopathy,s/paortic valve replacement x3 (on chronic anticoagulation for mechanical valve),tricuspid valve regurgit ation,paroxysmal atrial fibrillation, hypertension, previous endocarditis,ir on deficiency anemia -received IV iron, chronic kidney disease,hypothyroidism, depression, non-Hodgkins lymphoma and cirrhosis (etiology secondary to chemot herapy from treatment with non-Hodgkin lymphoma). Patient recently admitted to [facility] 14 days 11/15/2020 wit h GI bleed and nontraumatic rectus hematoma and was previously hospitalized [facility] [place] for GI bleed in setting of cirrhosis. During most recent hospit alization she underwent mesenteric angiogram and coil embolization of left infer ior epigastric artery. She received a total of 3 units PRBCs. She was resumed on warfarin for her mechanical valve prior to discharge. She had ongoing hematu alysha along with urinary retention and plans for outpatient follow-up with urology including CT urogram and cystoscopy. 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 She has contacted [facility] on several occasi ons since most recent hospital discharge reporting weight gain as well as seen o n 2 separate occasions. First on 11/21 in a post hospital visit when she was giv en IV Bumex and restarted on spironolactone. Bumex has been incrementally incre ased, currently at 4 mg twice daily. She was seen again on 11/29 in follow-up whe re she continued to be significantly hypervolemic and hospital admission was rec ommended. She was admitted to Recommendations: Today: 1. Initially required bumetanide drip which was transitioned to bumetanide 5 mg p.o. twice daily on 12/03/20. Good urine output. She is net -7.8 L since admit a nd -1 L overnight. PROJECT GEOPHYSICIST dose was 4 mg p.o. twice daily. Please check BMP in 1 we ek 2. Echocardiogram completed 11/30/2020: see results below. 3. Abdominal ultrasound 12/01 s/p Paracentesis 12/01 with removal of 6.3L of fluid . No fluid analysis. 4. Spironolactone adjusted up to 100 mg daily this admit. Tolerating well. 5. Initiated on digoxin this admit for HR/RV support. Received 500 mcg loading and then 125 mcg daily starting 12/01. Elevated digoxin level 1.4 on 12/04/2020 . Recommend to change from daily dosing to MWF. Hold today. Start Wednesday 11/22 5. Please repeat levels on 12/13/20. 6. Continue warfarin with goal 2.0-3.0 given recent GI bleed (not usual 2.5-3.5 for mechnical valve). Plan is to check levels on Friday. Per IM team patient is assisting level goal to be 1.7-2. 7. Patient has significant RV failure with severe TR with limited treatment opti ons. She may need inotrope support in the near future. She also has chronic li minal disease. This multiorgan failure has poor prognosis. Lengthy discussion wi th patient on 12/[address] Lamb informing her of poor prognosis and potential li fe span of less than 1 year. Palliative care team was consulted. She was seen by Gino Pandya APRN. Remains FULL code. Home with HH. 8. F/u: Basilia Sequeira APRN on 12/12/20 O[place]. BMP once a day. Magnesium level daily. Keep Potassium greater than 4.0 and M agnesium greater than 2.0. 2. 2000mg sodium dietary restriction. 3. Fluid Restriction:1.5 4. Strict I/O. Goal output: net neg evenL/24 hour 5. Daily standing scale weight. Goal Dry Weight: 134 lbs Pt discussed with Dr. Starr Discussed with Dr. Fagan with IM team. Would be happy to see patient again as needed. Please call as needed for questi ons or new developments. Thank you! The Complexity of medical decision making is high due to the multi-system diseas es present and the complexity/severity and gravity of the patient's underlying c ardiac illnesses and interplay of other issues. Melissa Newberry PA-C Available on AMS/Voalte Assessment: Acute on chronic combined RV systolic and diastolic HFpEF, EF: 55%/RV failure Echo 11/30/2020: LV normal size, moderate concentric hypertrophy, LVEF 55%, unable to assess diastolic function. RV severely dilated, RV systolic function severe ly reduced. IVS 1.40 cm. Severe biatrial dilatation. CVP 10-20 mmHg. Moderate mitral annular calcification with mild MVR. Severe TVR. Mechanical aortic gary ve with mean gradient 11 mmHg and peak velocity 2.5 m/s. PASP 76 mmHg. L/RHC 06/08/2020: RA 20, RV 44/14, PA P 49/24 with mean 32, PCWP 25 mmHg. TPG 7 mmHg, PVR 1.3 Wood units. CO/CI by TD 5.33/3.18, by Yg 9.24/5.5. No signific ant coronary stenosis. -Previously scheduled for CardioMEMS on 10/20 but was hospitalized at the time, a nd now not a good candidate due to recent bleeding. Major Complications or Comorbidities (ALF): acute/ acute on chronic systolic and /or diastolic heart failure NYHA functional class IV (unable to carry on any physical activity without sympt oms of HF, or symptoms of HF at rest), ACC Stage C (structural heart disease with prior or current symptoms of HF). She presents with signs of euvolemia with right ventricular failure without sig ns of low flow state. Admission BNP: 396 Admission Weight: 72.4 kg (159 lb 9.6 oz) Most recent weights (inpatient): Vitals: 12/02/20 0543 12/03/20 0630 12/04/20 0500 Weight: 68.1 kg (150 lb 3.2 oz) 61.6 kg (135 lb 12.8 oz) 61.1 kg (134 lb 12.8 oz ) Intake/Output Summary (Last 24 hours) at 12/04/2020 1232 Last data filed at 12/04/2020 0815 Gross per 24 hour Intake 966.11 ml Output 1900 ml Net -933.89 ml Diuretic Therapy Prior to admission dose Bumex 4 mg twice daily since 11/23 Given on admission 11/29: Bumex 5 mg IV x1, metolazone 2.5 mg p.o. x1 Daily Dosing 11/30- 12/03: Bumex gtt 0.5 mg/h 12/03 bumex 5 mg po bid GDMT PROJECT GEOPHYSICIST Changes BB metoprolol tartrate d/c'd in early October d/t RV failure 11/29: primary team resumed metoprolol tartrate 12.5 mg twice daily 11/30: discontinue in setting of severe RV dysfunction. Loaded w/ digoxin 500 mcg then 125 mcg daily. ACEI/ARB/ARNI No Ejection Fraction >= 40% Aldosterone Antagonist spironolactone 25 mg daily 12/02 increased to 100 mg po d aily Hydralazine/Nitrate No (EF>40) Ivabradine No; Not treated with maximally tolerated dose beta blockers or beta b lockers contraindicated HRMT No (EF>35%) Anticoagulation for Afib/flutter Warfarin 11/29: INR 4.1, warfarin held 11/30: INR 3.3, warfarin 2 mg 12/01: INR 3.0, managed by pharmacy team 12/04 INR 1.9. patient insistent to keep 1.7-2. Managed by IM team. > 11/30: start digoxin 500 mcg x 1, the 125 mcg daily starting 12/01. Digoxin level on 12/02 was 1.3. repeat dig levels on 12/04 1.4. digoxin held on 12/04. Plan to start 125 mcg MWF starting Wednesday 12/06. > 12/01: Palliative care consultation for goals of care conversation > 12/01: Abdominal ultrasound to assess for possible ascites collection for paracentesis Testing/Procedures 11/30 echocardiogramsee above Atrial Fibrillation (Paroxysmal)/ Atrial Tachycardia/ s/p AorticValveReplacement: Initial surgery in 1975 at age [age] years old, second sternotomy 1997 when biopros thetic aortic valve was replaced, third sternotomy in 2010 with mechanical valve replacement - see echo above -She is onwarfarinoral anticoagulation. Goal INR 2.03.0. (Goal had been lowered to 1.62.0 with recent hospitalization but Dr. Starr have readjusted to 2.03.0). Her anticoagulation is managed by Dr. Starr. > INR daily- see table above > 11/30: digoxin 500 mcg x 1 then 125 mcg daily. Dig level ordered for 12/02 AM was 1.3. repeat dig levels on 12/04 1.4. digoxin held on 12/04. Plan to start 125 mcg MWF starting Wednesday 12/06. SevereTricuspidRegurgitation: Pulmonary hypertension - Follows with Dr. Rosales -Her echo on 10/21/2020 showed severe tricuspid regurgitation, PA pressure 79 mmH g. >Plan is to continue to monitor with hopes that reducing her volume overload will improve her tricuspid regurgitation. > Palliative care consultation Chronic Kidney Disease - StageII/III: Chronic hyponatremia -creatinine on admission 11/29 1.03 on admit. -Sodium on admission 133> 132>133 ?132 on (12/04) > Monitor twice daily while on Bumex drip Hypoalbuminemia Albumin 2.9 on 11/30 > Encourage protein intake Liver cirrhosis/Ascites s/p paracentesis per IR on 12/01/20 She follows with hepatology. [place] to be secondary to chemotherapy, has had prev ious liver biopsy. > Continue spironolactone and Bumex as above Removal of 6.2L of fluid Anemia Iron deficiency Recent GI bleeding in [...] range for mechanical valve 2.03.[address] Starr. -She denies any signs or symptoms of bleeding Hemoglobin 8.7 on admission Iron panel 11/29: Total iron 23, 7% saturation, TIBC 331, ferritin 112 > Continue to monitor closely > IV iron sucrose per primary team () Hematuria Urinary retention Seen by urology during recent hospitalization with plan for outpatient CT urogra m and cystoscopy. > Follow-up appointment on 12/22/[address] urogram and cystoscopy Non-Hodgkin's lymphoma diagnosed in 2004 underwent chemotherapy follows with hematology. ROS:. Seen just prior to leaving. Denies chest pain, shortness of breath, lighth eadedness, dizziness, near fainting, palpitations, abd pain, back pain or bleedi ng issues. Feeling much improved. We discussed digoxin dosing and levels checked. We discus sed PT/INR check on Friday. Review of Systems: A comprehensive review of systems was negative except for: as noted above Medical History: Diagnosis Date Cancer (HCC) Non- hodgkins lymphoma, chemo Disorder of thyroid gland Hypertension Iron deficiency anemia 08/03/2020 Iron deficiency anemia 08/03/2020 Surgical History: Procedure Laterality Date AORTIC VALVE REPLACEMENT 05/2009 mechanical ESOPHAGOGASTRODUODENOSCOPY WITH BIOPSY - FLEXIBLE N/A 06/06/2020 Performed by Bao Hernández MD at [facility] ENDO COLONOSCOPY DIAGNOSTIC WITH SPECIMEN COLLECTION BY BRUSHING/ WASHING - FLEXI BLE N/A 06/06/2020 Performed by Bao Hernández MD at [facility] ENDO ANGIOGRAPHY CORONARY ARTERY WITH RIGHT AND LEFT HEART CATHETERIZATION N/A Performed by Higinio Clarke MD at [facility] PREVENTION COORDINATOR POSSIBLE PERCUTANEOUS CORONARY STENT PLACEMENT WITH ANGIOPLASTY N/A Performed by Higinio Clarke MD at 2 PREVENTION COORDINATOR ESOPHAGOGASTRODUODENOSCOPY WITH SPECIMEN COLLECTION BY BRUSHING/ WASHING N/A 10/21/2020 Performed by Cosmo Gomez MD at [facility] ENDO SIGMOIDOSCOPY WITH CONTROL OF BLEEDING - FLEXIBLE N/A 10/21/2020 Performed by Cosmo Gomez MD at [facility] ENDO SIGMOIDOSCOPY WITH DIRECTED SUBMUCOSAL INJECTION - FLEXIBLE 10/21/2020 Performed by Cosmo Gomez MD at [facility] ENDO Family History Problem Relation Age of Onset COPD Mother Social History Socioeconomic History Marital status: Life Partner Spouse name: Not on file Number of children: 3 Years of education: Not on file Highest education level: Not on file Occupational History Not on file Tobacco Use Smoking status: Never Smoker Smokeless tobacco: Never Used Vaping Use Vaping Use: Never used Substance and Sexual Activity Alcohol use: Not Currently Drug use: Never Sexual activity: Not Currently Other Topics Concern Not on file Social History Narrative Not on file Objective: Allergies: No Known Allergies Medications: Scheduled Meds:bumetanide (BUMEX) tablet 5 mg, 5 mg, Oral, BID(-) [START ON 12/05/2020] digoxin (LANOXIN) tablet 125 mcg, 125 mcg, Oral, Q48H* fluticasone propionate (FLONASE) nasal spray 1 spray, 1 spray, Each Nostril, QDA Y levothyroxine (SYNTHROID) tablet 75 mcg, 75 mcg, Oral, QDAY 30 min before breakf ast oxybutynin chloride (DITROPAN) tablet 5 mg, 5 mg, Oral, TID pantoprazole DR (PROTONIX) tablet 40 mg, 40 mg, Oral, QDAY() sertraline (ZOLOFT) tablet 100 mg, 100 mg, Oral, BID spironolactone (ALDACTONE) tablet 100 mg, 100 mg, Oral, QDAY warfarin (COUMADIN) tablet 2 mg, 2 mg, Oral, QHS Continuous Infusions: sodium chloride 0.9 % TKO infusion 10 mL/hr at 12/01/20 0824 PRN and Respiratory Meds:acetaminophen Q6H PRN, hydrOXYzine TID PRN, hyoscyamine Q4H PRN, melatonin QHS PRN, prochlorperazine Q6H PRN, senna QDAY PRN, warfarin, pharmacy to manage Per Pharmacy No medications prior to admission. Vital Signs: Last Filed Vital Signs: 24 Hour Range BP: 98/62 (12/04 814) Temp: 36.8 C (98.3 F) (12/04 814) Pulse: 99 (12/04 814) Respirations: 18 PER MINUTE (12/04 814) SpO2: 99 % (12/04 814) BP: (91-109)/(52-65) Temp: [36.7 C (98 F)-37.3 C (99.1 F)] Pulse: [98-113] Respirations: [16 PER MINUTE-20 PER MINUTE] SpO2: [97 %-100 %] Wt Readings from Last 10 Encounters: 12/04/20 61.1 kg (134 lb 12.8 oz) 11/29/20 72 kg (158 lb 12.8 oz) 11/21/20 68.7 kg (151 lb 6.4 oz) 11/15/20 65.6 kg (144 lb 9.6 oz) 10/26/20 60.4 kg (133 lb 3.2 oz) 10/21/20 61.7 kg (136 lb 0.4 oz) 10/12/20 61.7 kg (136 lb) 09/07/20 61.2 kg (135 lb) 08/24/20 60.6 kg (133 lb 9.6 oz) 08/22/20 59.9 kg (132 lb) Physical Exam: General Appearance: no distress, overweight Skin: warm and dry Lips & Oral Mucosa: no pallor or cyanosis Digits and Nails: normal color, smooth symmetric nails and digits Eyes: conjunctivae and lids normal Neck Veins: JVP 5cm, HJR negative. Does have severe TR on echo Auscultation: breathing comfortably, lungs clear to auscultation, bilateral lowe r lobe rales, no rhonchi, exp wheezing Cardiac Auscultation: Regular rhythm, S1, S2, no S3 or S4, 3-4/6 murmur Pedal Pulses: pulses 2+, symmetric Lower Extremity Edema: 1+ bilat to knees Abdominal Exam: non tender. Orientation: clear historian, good insight Laboratory Review: CBC w/Diff Lab Results Component Value Date/Time WBC 12.7 (H) 12/04/2020 03:52 AM RBC 2.92 (L) 12/04/2020 03:52 AM HGB 8.7 (L) 12/04/2020 03:52 AM HCT 26.6 (L) 12/04/2020 03:52 AM MCV 90.9 12/04/2020 03:52 AM MCH 29.9 12/04/2020 03:52 AM MCHC 32.9 12/04/2020 03:52 AM RDW 18.5 (H) 12/04/2020 03:52 AM PLTCT 326 12/04/2020 03:52 AM MPV 6.4 (L) 12/04/2020 03:52 AM Lab Results Component Value Date/Time NEUT 90 (H) 12/04/2020 03:52 AM ANC 11.41 (H) 12/04/2020 03:52 AM LYMA 3 (L) 12/04/2020 03:52 AM ALC 0.31 (L) 12/04/2020 03:52 AM TINY 6 12/04/2020 03:52 AM AMC 0.77 12/04/2020 03:52 AM EOSA 1 12/04/2020 03:52 AM AEC 0.16 12/04/2020 03:52 AM BASA 0 12/04/2020 03:52 AM ABC 0.00 12/04/2020 03:52 AM Chemistry Lab Results Component Value Date/Time NA 132 (L) 12/04/2020 03:52 AM K 3.8 12/04/2020 03:52 AM CL 96 (L) 12/04/2020 03:52 AM CO2 29 12/04/2020 03:52 AM GAP 7 12/04/2020 03:52 AM BUN 16 12/04/2020 03:52 AM CR 0.92 12/04/2020 03:52 AM GLU 106 (H) 12/04/2020 03:52 AM GLU 143 (H) 07/28/2020 09:45 AM Lab Results Component Value Date/Time CA 8.2 (L) 12/04/2020 03:52 AM PO4 2.7 11/29/2020 10:40 AM ALBUMIN 2.9 (L) 12/04/2020 03:52 AM TOTPROT 5.7 (L) 12/04/2020 03:52 AM ALKPHOS 91 12/04/2020 03:52 AM AST 20 12/04/2020 03:52 AM ALT 10 12/04/2020 03:52 AM TOTBILI 0.8 12/04/2020 03:52 AM GFR >60 12/04/2020 03:52 AM GFRAA >60 12/04/2020 03:52 AM Renal Function Lab Results Component Value Date/Time NA 132 (L) 12/04/2020 03:52 AM K 3.8 12/04/2020 03:52 AM CL 96 (L) 12/04/2020 03:52 AM CO2 29 12/04/2020 03:52 AM GAP 7 12/04/2020 03:52 AM BUN 16 12/04/2020 03:52 AM BUN 15 12/03/2020 02:53 PM BUN 16 12/03/2020 04:24 AM Lab Results Component Value Date/Time CR 0.92 12/04/2020 03:52 AM CR 0.93 12/03/2020 02:53 PM CR 1.00 12/03/2020 04:24 AM GLU 106 (H) 12/04/2020 03:52 AM GLU 143 (H) 07/28/2020 09:45 AM CA 8.2 (L) 12/04/2020 03:52 AM PO4 2.7 11/29/2020 10:40 AM ALBUMIN 2.9 (L) 12/04/2020 03:52 AM Lipid Profile INR Lab Results Component Value Date CHOL 76 11/29/2020 TRIG 77 11/29/2020 HDL 25 (L) 11/29/2020 LDL 43 11/29/2020 VLDL 15 11/29/2020 NONHDLCHOL 51 11/29/2020 Lab Results Component Value Date INR 1.9 (H) 12/04/2020 INR 2.4 11/02/2020 Chest X-Ray: 11/29 1. Stable mild cardiomegaly and indistinct pulmonary vasculature suggesting pu lmonary edema. 2. Moderate right and trace left pleural effusions with bibasilar atelectasis. Tele/ECG: Not on TELE. Echocardiogram Details: Echo Results (Last 3 results in the past 3 years) Echo EF LVIDD LA Size IVS LVPW Rest PAP (11/30/20) 55 (11/30/20) 4.10 (11/30/20) 5.80 (11/30/20) 1.40 (11/30/20) 1.40 (11/30/20) 76 (10/21/20) 60 (10/21/20) 4.46 (10/21/20) 5.96 (10/21/20) 1.21 (10/21/20) 1.16 (10/21/20) 79 (05/22/20) 60 (05/22/20) 4.31 (05/22/20) 6.56 (05/22/20) 1.21 (05/22/20) 1.30 (05/22/20) 64 * Carlo Klein RN - 12/04/2020 5:38 AM CDT Heart Failure Nursing Progress Note Admission Date: 11/29/2020 LOS: 5 days Admission Weight: 72.4 kg (159 lb 9.6 oz) Most recent weights (inpatient): Vitals: 12/02/20 0543 12/03/20 0630 12/04/20 0500 Weight: 68.1 kg (150 lb 3.2 oz) 61.6 kg (135 lb 12.8 oz) 61.1 kg (134 lb 12.8 oz ) Weight change from previous day: -0.5 kg Fluid restriction ordered: 1.5L Intake/Output Summary: (Last 24 hours) Intake/Output Summary (Last 24 hours) at 12/04/2020 0538 Last data filed at 12/04/2020 0400 Gross per 24 hour Intake 1053.07 ml Output 2200 ml Net -1146.93 ml Is patient incontinent No Anticipated discharge date: 12/04/20 Discharge goals: Diurese Daily Assessment of Patient Stated Goals: Short Term Goal Identified by patient (Short Term=during hospitalization): Go home today * Diya Fagan MD - 12/03/2020 7:47 PM CDT General Progress Note Name: Zaria Paulson Today's Date: 12/03/2020 Admission Date: 11/29/2020 LOS: 4 days Assessment/Plan: Principal Problem: Acute on chronic heart failure (HCC) Active Problems: Chronic heart failure with preserved ejection fraction (HCC) Severe tricuspid regurgitation Hx of mechanical aortic valve replacement Chronic anticoagulation Iron deficiency anemia Cirrhosis (HCC) Paroxysmal atrial fibrillation (HCC) Stage 3b chronic kidney disease (HCC) RVF (right ventricular failure) (HCC) Hyponatremia Ms. Paulson is a 60yo F with a PMH of cirrhosis from unclear etiology, non-ischem ic cardiomyopathy, chronic heart failure with preserved ejection fraction, mecha nical aortic valve on warfarin, paroxysmal atrial fibrillation, remote hx of lym phoma and left rectus abdominal muscle hematoma who presented to cardiology clin ic 11/29 with weight gain. Acute on chronic heart failure with preserved ejection fraction Severe TR Non-ischemic cardiomyopathy - Follows with Dr. Bustillo, was previously scheduled for CardioMEMS 10/20 b ut was admitted for GIB - 10/21/20 echo: LVEF 60%, RV moderate dilated, severe biatrial dilatation, well -seated prosthesis in AV, torrential TR, markedly elevated CVP - PROJECT GEOPHYSICIST Bumex 3mg BID and spironolactone; increased to Bumex 4mg BID on 11/23 due to weight gain - Dry weight ~135lbs (discharged weight 151 on 11/21) - Weight on admission: 159 - TTE with normal LVEF 55%, severely dilated RV with severely reduced function, severe biatrial dilation, severe TR, markedly elevated CVP, stable position of t he AV. > Transition bumex drip to PO bumex 5mg BID. > spironolactone dose increased to 100mg > Cardiology HF following > Poor overall prognosis with liver and heart disease, Lengthy discussion with patient on 12/[address] Lamb informing her of poor prognosis and potential life span of less than 1 year. Appreciate Palliative care assistance. Mechanical aortic valve -Implanted 2010 - PROJECT GEOPHYSICIST warfarin 4 mg daily - INR 4.1 on admission PLAN: > Continue Warfarin with lower goal 2.0-2.5 given recent GI bleed (not usual 2.5-3.5 for mechnical valve). Dosing per pharmacy. (patient reports her goal 1.7-2.0) Paroxysmal atrial fibrillation - Went into AF with RVR during 10/20-10/26 admission, given metoprolol and amiod arone likely 2/2 active GIB - Was not discharged on anti-arrhythmic therapy PLAN: > Monitor on telemetry > BB discontinued given severe RV failure > Digoxin started 11/30 for HR control and RV support, 125 mcg daily starting 12/01 (loaded on 11/30). Anemia; stable Resolved: L flank/hip hematoma and Left rectus abdominal hematoma - 11/04/20 CT a/p: complex enlargement and fluid collection within the left rect us abdominal muscle extending into the retroperitoneum and left pelvic musculatu re suggestive of active extravasation - 11/05/2020: Patient had episode of hematuria with drop in hemoglobin to 6.5. Became hypotensive following blood transfusion, repeat hemoglobin of 4.5, IR krupa led, patient taken for embolization of inferior epigastric artery on 11/06/2020 - CT a/p 11/08/20 -stable slight improvement of left hemipelvis rectus hematoma, small to moderate simple abdominal and pelvic ascites, cirrhosis, small right pl eural effusion, mild body wall edema, no mention of retroperitoneal hemorrhage - Hgb 8.7 on admission and stable from 11/21 - Patient had been taking her warfarin - INR 4.1 on admission - Iron deficiency present on labs on admission - Patient denies hematemesis, melena, hematochezia, worsening hematoma. PLAN: > Warfarin per pharamcy >Continue INR and CBC checks daily > Iron infusion Cirrhosis Hx of colonic AVMs - Follows with Dr. Marti - Patient reports no history of esophageal varices - MELD-Na score: 17 at 11/15/2020 6:10 AM PLAN: > Daily MELD labs > Continue PPI daily > Paracentesis 12/02, 6.3L removed. Remote hx of lymphoma - s/p chemotherapy in 2004 Anxiety/Depression - PROJECT GEOPHYSICIST zoloft, increase to 100mg BID. - try atarax prn for anxiety Fluids: No IVF Electrolytes: Replace Lytes PRN Nutrition: CardiacDiet DVT PPx: SCDs, warfarin Lines/Drains: PIV Code Status: FULL CODE Diya Fagan MD Med Private D, Team Pager [phone] Subjective No events overnight. She continues to feel well and reports overall improvement. Has mild cough. no significant dyspnea. no chest pain. No fever, chest pain, abdominal pain, vomiting Medications Scheduled Meds:bumetanide (BUMEX) tablet 5 mg, 5 mg, Oral, BID(-) digoxin (LANOXIN) tablet 125 mcg, 125 mcg, Oral, QDAY fluticasone propionate (FLONASE) nasal spray 1 spray, 1 spray, Each Nostril, QDA Y levothyroxine (SYNTHROID) tablet 75 mcg, 75 mcg, Oral, QDAY 30 min before breakf ast magnesium sulfate 1 g/D5W 100 mL IVPB, 1 g, Intravenous, Q4H* Followed by [START ON 12/04/2020] magnesium sulfate 1 g/D5W 100 mL IVPB, 1 g, Intravenous, Q4H* Followed by [START ON 12/04/2020] magnesium sulfate 1 g/D5W 100 mL IVPB, 1 g, Intravenous, Q4H* oxybutynin chloride (DITROPAN) tablet 5 mg, 5 mg, Oral, TID pantoprazole DR (PROTONIX) tablet 40 mg, 40 mg, Oral, QDAY() sertraline (ZOLOFT) tablet 100 mg, 100 mg, Oral, BID spironolactone (ALDACTONE) tablet 100 mg, 100 mg, Oral, QDAY warfarin (COUMADIN) tablet 2 mg, 2 mg, Oral, QHS Continuous Infusions: sodium chloride 0.9 % TKO infusion 10 mL/hr at 12/01/20 0824 PRN and Respiratory Meds:acetaminophen Q6H PRN, hydrOXYzine TID PRN, hyoscyamine Q4H PRN, melatonin QHS PRN, prochlorperazine Q6H PRN, senna QDAY PRN, warfarin, pharmacy to manage Per Pharmacy Objective: Vital Signs: Last Filed Vital Signs: 24 Miguel r Range BP: 104/58 (12/03 1852) Temp: 36.7 C (98 F) (12/03 1852) Pulse: 105 (12/03 1852) Respirations: 16 PER MINUTE (12/03 1852) SpO2: 100 % (12/03 1852) BP: (92-109)/(43-65) Temp: [36.6 C (97.9 F)-37.3 C (99.1 F)] Pulse: [99-113] Respirations: [16 PER MINUTE-20 PER MINUTE] SpO2: [96 %-100 %] Vitals: 12/01/20 0534 12/02/20 0543 12/03/20 0630 Weight: 69.3 kg (152 lb 12.8 oz) 68.1 kg (150 lb 3.2 oz) 61.6 kg (135 lb 12.8 oz ) Intake/Output Summary: (Last 24 hours) Intake/Output Summary (Last 24 hours) at 12/03/20201946 Last data filed at 12/03/2020 1854 Gross per 24 hour Intake 1293.07 ml Output 3100 ml Net -1806.93 ml Stool Occurrence: 1 Physical Exam GENERAL: NAD, alert RESPIRATORY: CTAB CV: irregular rhythm. + murmur/click. ABDOMEN: soft, active bowel sounds present, mildly distended, NTTP EXTREMITIES: BLE trace pitting edema SKIN: no rashes or lesions Lab Review Pertinent labs reviewed Point of Care Testing (Last 24 hours) Glucose: (!) 144 (12/03/20 1453) Radiology and other Diagnostics Review: Pertinent radiology reviewed. * Anastacio Singh MD - 12/03/2020 1:04 PM CDT Staff Cardiology Progress Note Admission Date: 11/29/2020 Today's Date: 12/03/2020 LOS: 4 days Assessment & Plan Zaria Paulson is a 60 y.o. patient with the following problems: Principal Problem: Acute on chronic heart failure (HCC) Active Problems: Chronic heart failure with preserved ejection fraction (HCC) Severe tricuspid regurgitation Hx of mechanical aortic valve replacement Chronic anticoagulation Iron deficiency anemia Cirrhosis (HCC) Paroxysmal atrial fibrillation (HCC) Stage 3b chronic kidney disease (HCC) RVF (right ventricular failure) (HCC) Hyponatremia 1. Cardiogenic cirrhosis Longstanding severe TR now with cirrhosis Abdominal ascites, otherwise no significant decompensation, total bilirubin 0 .7, AST, ALTs, alk phos normal, platelet count normal Follows with Dr. Marti outpatient Given RV failure, severe TR, not candidate for consideration of liver transpl ant Paracentesis Friday 6.3 L fluid removed, no abdominal discomfort today 2. Severe tricuspid valve regurgitation Severely dilated RV with severely reduced function and severe pulmonary hyper tension. PA systolic pressures in the 70s Poor prognosis, no treatment options for tricuspid regurgitation at this time Mainstay of therapy diuretics, will continue Diuretics as below 3. 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 Mechanical aortic valve On warfarin, target INR 2.02.5 in setting of recent bleeding issues INR 2.3 today, at goal, target lower goal in this patient with recent bleedin g issues Anticipate stability for discharge home tomorrow Subjective Patient doing well today, no abdominal discomfort, no dyspnea. Appetite is good . Eager for discharge home. We talked about continuing IV diuretic for 1 day m ore or transitioning to oral, she strongly favors DC IV Bumex, reasonable. No c oncerning dysrhythmias. Medications Scheduled Meds:digoxin (LANOXIN) tablet 125 mcg, 125 mcg, Oral, QDAY fluticasone propionate (FLONASE) nasal spray 1 spray, 1 spray, Each Nostril, QDA Y levothyroxine (SYNTHROID) tablet 75 mcg, 75 mcg, Oral, QDAY 30 min before breakf ast oxybutynin chloride (DITROPAN) tablet 5 mg, 5 mg, Oral, TID pantoprazole DR (PROTONIX) tablet 40 mg, 40 mg, Oral, QDAY(21) sertraline (ZOLOFT) tablet 100 mg, 100 mg, Oral, BID spironolactone (ALDACTONE) tablet 100 mg, 100 mg, Oral, QDAY warfarin (COUMADIN) tablet 2 mg, 2 mg, Oral, QHS Continuous Infusions: bumetanide (BUMEX) 12.5 mg in empty IV bag 50 mL IV drip (std conc) 0.5 mg/h r (12/03/20 0443) sodium chloride 0.9 % TKO infusion 10 mL/hr at 12/01/20 0824 PRN and Respiratory Meds:acetaminophen Q6H PRN, hydrOXYzine TID PRN, hyoscyamine Q4H PRN, melatonin QHS PRN, prochlorperazine Q6H PRN, senna QDAY PRN, warfarin, pharmacy to manage Per Pharmacy Objective Vital Signs: Last Filed Vital Signs: 24 Miguel r Range BP: 98/62 (12/03 1141) Temp: 37 C (98.6 F) (12/03 1141) Pulse: 100 (12/03 1141) Respirations: 18 PER MINUTE (12/03 1141) SpO2: 98 % (12/03 1141) BP: (92-106)/(43-62) Temp: [36.6 C (97.9 F)-37 C (98.6 F)] Pulse: [99-104] Respirations: [17 PER MINUTE-20 PER MINUTE] SpO2: [96 %-99 %] Vitals: 12/01/20 0534 12/02/20 0543 12/03/20 0630 Weight: 69.3 kg (152 lb 12.8 oz) 68.1 kg (150 lb 3.2 oz) 61.6 kg (135 lb 12.8 oz ) Intake/Output Summary: (Last 24 hours) Intake/Output Summary (Last 24 hours) at 12/03/2020 1304 Last data filed at 12/03/2020 1142 Gross per 24 hour Intake 1286.96 ml Output 2750 ml Net -1463.04 ml Body mass index is 24.84 kg/m. Physical Exam General Appearance: no acute distress HEENT: EOMI, MM-moist, post OP-clear Neck Veins: Massive engorgement, bounding V wave, JVP 1215 Carotid Arteries: no bruits Chest Inspection: Sternotomy scar Auscultation/Percussion: lungs clear to auscultation, no rales, rhonchi, or whee zing Cardiac Rhythm: regular rhythm & normal rate Cardiac Auscultation: Normal S1 & S2, no S3 Murmurs: 5/6 holosystolic murmur left lower sternal border best appreciated Abdominal Exam: soft, non-tender, normal bowel sounds, no masses or bruits minim al ascites Abdominal aorta: nonpalpable Extremities: no lower extremity edema; 2+ symmetric distal pulses Skin: warm & intact Neurologic Exam: oriented to time, place and person; no focal neurologic deficit s Lab Review Results for orders placed or performed during the hospital encounter of 11/29/20 (from the past 24 hour(s)) BASIC METABOLIC PANEL Collection Time: 09/11/21 1:14 PM Result Value Ref Range Sodium 134 (L) 137 - 147 MMOL/L Potassium 3.3 (L) 3.5 - 5.1 MMOL/L Chloride 100 98 - 110 MMOL/L CO2 28 21 - 30 MMOL/L Anion Gap 6 3 - 12 Glucose 104 (H) 70 - 100 MG/DL Blood Urea Nitrogen 14 7 - 25 MG/DL Creatinine 0.89 0.4 - 1.00 MG/DL Calcium 8.0 (L) 8.5 - 10.6 MG/DL eGFR Non >60 >60 mL/min eGFR >60 >60 mL/min PROTIME INR (PT) Collection Time: 12/03/20 4:24 AM Result Value Ref Range INR 2.3 (H) 0.8 - 1.2 CBC AND DIFF Collection Time: 12/03/20 4:24 AM Result Value Ref Range White Blood Cells 9.2 4.5 - 11.0 K/UL RBC 2.94 (L) 4.0 - 5.0 M/UL Hemoglobin 8.9 (L) 12.0 - 15.0 GM/DL Hematocrit 27.1 (L) 36 - 45 % MCV 92.1 80 - 100 FL MCH 30.2 26 - 34 PG MCHC 32.8 32.0 - 36.0 G/DL RDW 18.8 (H) 11 - 15 % Platelet Count 341 150 - 400 K/UL MPV 6.5 (L) 7 - 11 FL Neutrophils 89 (H) 41 - 77 % Lymphocytes 3 (L) 24 - 44 % Monocytes 6 4 - 12 % Eosinophils 1 0 - 5 % Basophils 1 0 - 2 % Absolute Neutrophil Count 8.27 (H) 1.8 - 7.0 K/UL Absolute Lymph Count 0.28 (L) 1.0 - 4.8 K/UL Absolute Monocyte Count 0.51 0 - 0.80 K/UL Absolute Eosinophil Count 0.11 0 - 0.45 K/UL Absolute Basophil Count 0.04 0 - 0.20 K/UL COMPREHENSIVE METABOLIC PANEL Collection Time: 12/03/20 4:24 AM Result Value Ref Range Sodium 135 (L) 137 - 147 MMOL/L Potassium 4.1 3.5 - 5.1 MMOL/L Chloride 97 (L) 98 - 110 MMOL/L Glucose 93 70 - 100 MG/DL Blood Urea Nitrogen 16 7 - 25 MG/DL Creatinine 1.00 0.4 - 1.00 MG/DL Calcium 8.2 (L) 8.5 - 10.6 MG/DL Total Protein 5.8 (L) 6.0 - 8.0 G/DL Total Bilirubin 0.8 0.3 - 1.2 MG/DL Albumin 3.0 (L) 3.5 - 5.0 G/DL Alk Phosphatase 96 25 - 110 U/L AST (SGOT) 19 7 - 40 U/L CO2 32 (H) 21 - 30 MMOL/L ALT (SGPT) 8 7 - 56 U/L Anion Gap 6 3 - 12 eGFR Non 57 (L) >60 mL/min eGFR >60 >60 mL/min Anastacio Singh MD * Summer Burt, PHARMD - 12/03/2020 9:14 AM CDT Pharmacy Warfarin Note Subjective: Pharmacy consulted to assist with management of warfarin therapy. Objective: Zaria Paulson is a 60 y.o. female receiving warfarin for Mechanical AVR Comme nt: Mechanical AVR. Current Warfarin Orders Medication Dose Route Frequency warfarin (COUMADIN) tablet 2 mg 2 mg Oral QHS warfarin, pharmacy to manage 1 each Service Per Pharmacy Bridge therapy: n/a. Warfarin dose for Ms. Paulson prior to admission: 4 mg daily INR Date/Time Value Ref Range Status 12/03/2020 0424 2.3 (H) 0.8 - 1.2 Final 12/02/2020 0454 2.8 (H) 0.8 - 1.2 Final 12/01/2020 0604 3.0 (H) 0.8 - 1.2 Final Drug interaction(s): no. Assessment: Goal INR for Ms. Paulson is 2-2.5 for Mechanical AVR Comment: Mechanical AVR & history of bleeding. INR: INR (no units) Date/Time Value 12/03/2020 0424 2.3 (H) INR Home (no units) Date/Time Value 11/02/2020 0000 2.4 INR POC (no units) Date/Time Value 11/21/2020 0824 1.7 (H) Plan: 1. INR 2.3, will continue 2mg nightly targeting lower end of goal INR range wit h history of GIB. 2. Next INR: Tomorrow 3. Pharmacy will [...] will no longer be managed by Pharmac y Summer Burt PHARMD 12/03/2020 * Anastacio Singh MD - 12/02/2020 2:16 PM CDT Staff Cardiology Progress Note Admission Date: 11/29/2020 Today's Date: 12/02/2020 LOS: 3 days Assessment & Plan Zaria Paulson is a 60 y.o. patient with the following problems: Principal Problem: Acute on chronic heart failure (HCC) Active Problems: Chronic heart failure with preserved ejection fraction (HCC) Severe tricuspid regurgitation Hx of mechanical aortic valve replacement Chronic anticoagulation Iron deficiency anemia Cirrhosis (HCC) Paroxysmal atrial fibrillation (HCC) Stage 3b chronic kidney disease (HCC) RVF (right ventricular failure) (HCC) Hyponatremia 1. Cardiogenic cirrhosis Longstanding severe TR now with cirrhosis Abdominal ascites, otherwise no significant decompensation, total bilirubin 0 .7, AST, ALTs, alk phos normal, platelet count normal Follows with Dr. Marti outpatient Given RV failure, severe TR, not candidate for consideration of liver transpl ant Paracentesis yesterday, 6.3 L fluid removed, feeling better today 2. Severe tricuspid valve regurgitation Severely dilated RV with severely reduced function and severe pulmonary hyper tension. PA systolic pressures in the 70s Poor prognosis, no treatment options for tricuspid regurgitation at this time Mainstay of therapy diuretics, will continue 3. Acute on chronic heart failure with preserved ejection fraction, RV failure Patient doing well with diuresis, continue Bumex drip, 3.5 L urine output yes terday Continue accurate I's/O's, continue daily standing scale weights I suspect weight today 150 pounds is in the air, 6.3 L paracentesis yesterday which is 2 pound weight loss?? We will follow up with weight tomorrow and I's and O's Anticipate transitioning to oral diuretic tomorrow, PROJECT GEOPHYSICIST Aldactone 25, Bumex 4 twice daily Aldactone has been increased to 100, anticipate higher dose of Bumex at disch arge also 4. Mechanical aortic valve On warfarin, target INR 2.02.5 in setting of recent bleeding issues I will follow up with patient tomorrow, anticipate stability for discharge home Friday Subjective Patient doing well today. Yesterday was a challenging day for her, she was told about her overall poor prognosis (less than 1 year) this is a bit of a surprise for her but she appreciates the honesty. Palliative care met with the patient. She remains full code. She has not yet shared with her family concerns about prognosis but will do so. She is feeling better after paracentesis, abdomen les s painful. Appetite is okay. No chest pain, no dyspnea. Medications Scheduled Meds:digoxin (LANOXIN) tablet 125 mcg, 125 mcg, Oral, QDAY fluticasone propionate (FLONASE) nasal spray 1 spray, 1 spray, Each Nostril, QDA Y levothyroxine (SYNTHROID) tablet 75 mcg, 75 mcg, Oral, QDAY 30 min before breakf ast oxybutynin chloride (DITROPAN) tablet 5 mg, 5 mg, Oral, TID pantoprazole DR (PROTONIX) tablet 40 mg, 40 mg, Oral, QDAY(21) sertraline (ZOLOFT) tablet 100 mg, 100 mg, Oral, BID spironolactone (ALDACTONE) tablet 100 mg, 100 mg, Oral, QDAY warfarin (COUMADIN) tablet 2 mg, 2 mg, Oral, QHS Continuous Infusions: bumetanide (BUMEX) 12.5 mg in empty IV bag 50 mL IV drip (std conc) Stopped (12/02/20 0729) sodium chloride 0.9 % TKO infusion 10 mL/hr at 12/01/20 0824 PRN and Respiratory Meds:acetaminophen Q6H PRN, diphenhydrAMINE HCL Q4H PRN, EPI NEPHrine PF Q5 MIN PRN, hydrOXYzine TID PRN, hyoscyamine Q4H PRN, melatonin QHS PRN, prochlorperazine Q6H PRN, senna QDAY PRN, warfarin, pharmacy to manage Per Pharmacy Objective Vital Signs: Last Filed Vital Signs: 24 Miguel r Range BP: 102/60 (12/02 1025) Temp: 36.8 C (98.2 F) (12/02 1025) Pulse: 100 (12/02 1025) Respirations: 18 PER MINUTE (12/02 1025) SpO2: 99 % (12/02 1025) BP: (101-115)/(56-69) Temp: [36.4 C (97.5 F)-37.1 C (98.8 F)] Pulse: [99-109] Respirations: [18 PER MINUTE-32 PER MINUTE] SpO2: [95 %-99 %] Intensity Pain Scale (Self Report): 2 (12/02/20 1048) Vitals: 11/30/20 0519 12/01/20 0534 12/02/20 0543 Weight: 70.8 kg (156 lb) 69.3 kg (152 lb 12.8 oz) 68.1 kg (150 lb 3.2 oz) Intake/Output Summary: (Last 24 hours) Intake/Output Summary (Last 24 hours) at 12/02/2020 1416 Last data filed at 12/02/2020 1252 Gross per 24 hour Intake 840 ml Output 3400 ml Net -2560 ml Body mass index is 27.47 kg/m. Physical Exam General Appearance: no acute distress HEENT: EOMI, MM-moist, post OP-clear Neck Veins: Massive engorgement, bounding V wave, JVP 1215 Carotid Arteries: no bruits Chest Inspection: Sternotomy scar Auscultation/Percussion: lungs clear to auscultation, no rales, rhonchi, or whee zing Cardiac Rhythm: regular rhythm & normal rate Cardiac Auscultation: Normal S1 & S2, no S3 Murmurs: 4/6 holosystolic murmur left lower sternal border best appreciated Abdominal Exam: soft, non-tender, normal bowel sounds, no masses or bruits minim al ascites Abdominal aorta: nonpalpable Extremities: no lower extremity edema; 2+ symmetric distal pulses Skin: warm & intact Neurologic Exam: oriented to time, place and person; no focal neurologic deficit s Lab Review Results for orders placed or performed during the hospital encounter of 11/29/20 (from the past 24 hour(s)) CBC AND DIFF Collection Time: 12/02/20 4:54 AM Result Value Ref Range White Blood Cells 8.0 4.5 - 11.0 K/UL RBC 2.80 (L) 4.0 - 5.0 M/UL Hemoglobin 8.6 (L) 12.0 - 15.0 GM/DL Hematocrit 25.4 (L) 36 - 45 % MCV 90.5 80 - 100 FL MCH 30.5 26 - 34 PG MCHC 33.7 32.0 - 36.0 G/DL RDW 18.0 (H) 11 - 15 % Platelet Count 347 150 - 400 K/UL MPV 6.3 (L) 7 - 11 FL Neutrophils 85 (H) 41 - 77 % Lymphocytes 4 (L) 24 - 44 % Monocytes 8 4 - 12 % Eosinophils 2 0 - 5 % Basophils 1 0 - 2 % Absolute Neutrophil Count 6.89 1.8 - 7.0 K/UL Absolute Lymph Count 0.30 (L) 1.0 - 4.8 K/UL Absolute Monocyte Count 0.61 0 - 0.80 K/UL Absolute Eosinophil Count 0.17 0 - 0.45 K/UL Absolute Basophil Count 0.08 0 - 0.20 K/UL COMPREHENSIVE METABOLIC PANEL Collection Time: 12/02/20 4:54 AM Result Value Ref Range Sodium 134 (L) 137 - 147 MMOL/L Potassium 3.4 (L) 3.5 - 5.1 MMOL/L Chloride 97 (L) 98 - 110 MMOL/L Glucose 89 70 - 100 MG/DL Blood Urea Nitrogen 15 7 - 25 MG/DL Creatinine 0.99 0.4 - 1.00 MG/DL Calcium 8.3 (L) 8.5 - 10.6 MG/DL Total Protein 6.0 6.0 - 8.0 G/DL Total Bilirubin 0.7 0.3 - 1.2 MG/DL Albumin 2.9 (L) 3.5 - 5.0 G/DL Alk Phosphatase 106 25 - 110 U/L AST (SGOT) 21 7 - 40 U/L CO2 28 21 - 30 MMOL/L ALT (SGPT) 9 7 - 56 U/L Anion Gap 9 3 - 12 eGFR Non 58 (L) >60 mL/min eGFR >60 >60 mL/min PROTIME INR (PT) Collection Time: 12/02/20 4:54 AM Result Value Ref Range INR 2.8 (H) 0.8 - 1.2 DIGOXIN LEVEL Collection Time: 12/02/20 4:54 AM Result Value Ref Range Digoxin 1.3 (H) 0.5 - 1.0 NG/ML BASIC METABOLIC PANEL Collection Time: 12/02/20 1:14 PM Result Value Ref Range Sodium 134 (L) 137 - 147 MMOL/L Potassium 3.3 (L) 3.5 - 5.1 MMOL/L Chloride 100 98 - 110 MMOL/L CO2 28 21 - 30 MMOL/L Anion Gap 6 3 - 12 Glucose 104 (H) 70 - 100 MG/DL Blood Urea Nitrogen 14 7 - 25 MG/DL Creatinine 0.89 0.4 - 1.00 MG/DL Calcium 8.0 (L) 8.5 - 10.6 MG/DL eGFR Non >60 >60 mL/min eGFR >60 >60 mL/min Anastacio Singh MD * Diya Fagan MD - 12/02/2020 1:44 PM CDT General Progress Note Name: Zaria Paulson Today's Date: 12/02/2020 Admission Date: 11/29/2020 LOS: 3 days Assessment/Plan: Principal Problem: Acute on chronic heart failure (HCC) Active Problems: Chronic heart failure with preserved ejection fraction (HCC) Severe tricuspid regurgitation Hx of mechanical aortic valve replacement Chronic anticoagulation Iron deficiency anemia Cirrhosis (HCC) Paroxysmal atrial fibrillation (HCC) Stage 3b chronic kidney disease (HCC) RVF (right ventricular failure) (HCC) Hyponatremia Ms. Paulson is a 60yo F with a PMH of cirrhosis from unclear etiology, non-ischem ic cardiomyopathy, chronic heart failure with preserved ejection fraction, mecha nical aortic valve on warfarin, paroxysmal atrial fibrillation, remote hx of lym phoma and left rectus abdominal muscle hematoma who presented to cardiology clin ic 11/29 with weight gain. Acute on chronic heart failure with preserved ejection fraction Severe TR Non-ischemic cardiomyopathy - Follows with Dr. Bustillo, was previously scheduled for Cardio[facility] 10/20 b ut was admitted for GIB - 10/21/20 echo: LVEF 60%, RV moderate dilated, severe biatrial dilatation, well -seated prosthesis in AV, torrential TR, markedly elevated CVP - PROJECT GEOPHYSICIST Bumex 3mg BID and spironolactone; increased to Bumex 4mg BID on 11/23 due to weight gain - Dry weight ~135lbs (discharged weight 151 on 11/21) - Weight on admission: 159 - TTE with normal LVEF 55%, severely dilated RV with severely reduced function, severe biatrial dilation, severe TR, markedly elevated CVP, stable position of t he AV. > Bumex drip @ 0.5 mg/hr for now > Cardiology HF following > Poor overall prognosis with liver and heart disease, Lengthy discussion with patient on 12/[address] Lamb informing her of poor prognosis and potential life span of less than 1 year. Appreciate Palliative care assistance. Mechanical aortic valve -Implanted 2010 - PROJECT GEOPHYSICIST warfarin 4 mg daily - INR 4.1 on admission PLAN: > Continue Warfarin with goal 2.0-3.0 given recent GI bleed (not usual 2.5-3.5 for mechnical valve). Dosing per pharmacy. (patient reports her goal 1.7-2.0) Paroxysmal atrial fibrillation - Went into AF with RVR during 10/20-10/26 admission, given metoprolol and amiod arone likely 04/25 active GIB - Was not discharged on anti-arrhythmic therapy PLAN: > Monitor on telemetry > BB discontinued given severe RV failure > Digoxin started 11/30 for HR control and RV support, 125 mcg daily starting 12/01 (loaded on 11/30). Anemia; stable Resolved: L flank/hip hematoma and Left rectus abdominal hematoma - 11/04/20 CT a/p: complex enlargement and fluid collection within the left rect us abdominal muscle extending into the retroperitoneum and left pelvic musculatu re suggestive of active extravasation - 11/05/2020: Patient had episode of hematuria with drop in hemoglobin to 6.5. Became hypotensive following blood transfusion, repeat hemoglobin of 4.5, IR krupa led, patient taken for embolization of inferior epigastric artery on 11/06/2020 - CT a/p 11/08/20 -stable slight improvement of left hemipelvis rectus hematoma, small to moderate simple abdominal and pelvic ascites, cirrhosis, small right pl eural effusion, mild body wall edema, no mention of retroperitoneal hemorrhage - Hgb 8.7 on admission and stable from 11/21 - Patient had been taking her warfarin - INR 4.1 on admission - Iron deficiency present on labs on admission - Patient denies hematemesis, melena, hematochezia, worsening hematoma. PLAN: > Warfarin per pharamcy >Continue INR and CBC checks daily > Iron infusion Cirrhosis Hx of colonic AVMs - Follows with Dr. Marti - Patient reports no history of esophageal varices - MELD-Na score: 17 at 11/15/2020 6:10 AM PLAN: > Daily MELD labs > Continue PPI daily > Paracentesis 12/02, reportedly 6L removed. Remote hx of lymphoma - s/p chemotherapy in 2004 Anxiety/Depression - PROJECT GEOPHYSICIST zoloft, increase to 100mg BID. - try atarax prn for anxiety Fluids: No IVF Electrolytes: Replace Lytes PRN Nutrition: CardiacDiet DVT PPx: SCDs, warfarin Lines/Drains: PIV Code Status: FULL CODE Diya Fagan MD Med Private D, Team Pager [phone] Subjective No events overnight. patient noted feeling ok in general. Has better relief in h er abdomen after paracentesis. She noted multiple bowel movements yesterday. No vomiting. No melena. No fever, chest pain, abdominal pain, vomiting Medications Scheduled Meds:digoxin (LANOXIN) tablet 125 mcg, 125 mcg, Oral, QDAY fluticasone propionate (FLONASE) nasal spray 1 spray, 1 spray, Each Nostril, QDA Y levothyroxine (SYNTHROID) tablet 75 mcg, 75 mcg, Oral, QDAY 30 min before breakf ast oxybutynin chloride (DITROPAN) tablet 5 mg, 5 mg, Oral, TID pantoprazole DR (PROTONIX) tablet 40 mg, 40 mg, Oral, QDAY(21) sertraline (ZOLOFT) tablet 100 mg, 100 mg, Oral, BID spironolactone (ALDACTONE) tablet 100 mg, 100 mg, Oral, QDAY warfarin (COUMADIN) tablet 2 mg, 2 mg, Oral, QHS Continuous Infusions: bumetanide (BUMEX) 12.5 mg in empty IV bag 50 mL IV drip (std conc) Stopped (12/02/20 0729) sodium chloride 0.9 % TKO infusion 10 mL/hr at 12/01/20 0824 PRN and Respiratory Meds:acetaminophen Q6H PRN, diphenhydrAMINE HCL Q4H PRN, EPI NEPHrine PF Q5 MIN PRN, hydrOXYzine TID PRN, hyoscyamine Q4H PRN, melatonin QHS PRN, prochlorperazine Q6H PRN, senna QDAY PRN, warfarin, pharmacy to manage Per Pharmacy Objective: Vital Signs: Last Filed Vital Signs: 24 Miguel r Range BP: 102/60 (12/02 102) Temp: 36.8 C (98.2 F) (12/02 1026) Pulse: 100 (12/02 1026) Respirations: 18 PER MINUTE (12/02 1026) SpO2: 99 % (12/02 1026) BP: (101-115)/(56-69) Temp: [36.4 C (97.5 F)-37.1 C (98.8 F)] Pulse: [99-109] Respirations: [18 PER MINUTE-32 PER MINUTE] SpO2: [95 %-99 %] Intensity Pain Scale (Self Report): 2 (12/02/20 1048) Vitals: 11/30/20 0519 12/01/20 0534 12/02/20 0543 Weight: 70.8 kg (156 lb) 69.3 kg (152 lb 12.8 oz) 68.1 kg (150 lb 3.2 oz) Intake/Output Summary: (Last 24 hours) Intake/Output Summary (Last 24 hours) at 12/02/2020 1344 Last data filed at 12/02/2020 1252 Gross per 24 hour Intake 840 ml Output 3400 ml Net -2560 ml Stool Occurrence: 1 Physical Exam GENERAL: NAD, resting in bed, alert, oriented, and awake RESPIRATORY: crackles in bases, no respiratory distress CV: irregular rhythm. + murmur/click. ABDOMEN: soft, active bowel sounds present, mildly distended, NTTP EXTREMITIES: BLE 1+ pitting edema SKIN: no rashes or lesions Lab Review Pertinent labs reviewed Point of Care Testing (Last 24 hours) Glucose: 89 (12/02/20 0454) Radiology and other Diagnostics Review: Pertinent radiology reviewed. * Summer Burt, DONNAD - 12/02/2020 11:24 AM CDT Pharmacy Warfarin Note Subjective: Pharmacy consulted to assist with management of warfarin therapy. Objective: Zaria Paulson is a 60 y.o. female receiving warfarin for Mechanical AVR Comme nt: Mechanical AVR. Current Warfarin Orders Medication Dose Route Frequency warfarin (COUMADIN) tablet 2 mg 2 mg Oral QHS warfarin, pharmacy to manage 1 each Service Per Pharmacy Bridge therapy: n/a. Warfarin dose for Ms. Paulson prior to admission: 4 mg daily INR Date/Time Value Ref Range Status 12/02/2020 0454 2.8 (H) 0.8 - 1.2 Final 12/01/2020 0604 3.0 (H) 0.8 - 1.2 Final 11/30/2020 0425 3.3 (H) 0.8 - 1.2 Final Drug interaction(s): no. Assessment: Goal INR for Ms. Paulosn is 2-3 for Mechanical AVR Comment: Mechanical AVR. INR: INR (no units) Date/Time Value 12/02/2020 0454 2.8 (H) INR Home (no units) Date/Time Value 11/02/2020 0000 2.4 INR POC (no units) Date/Time Value 11/21/2020 0824 1.7 (H) Plan: 1. 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 At goal, but will target closer to 2.0 with history of GIB. Adjusting to 2mg tonight. 2. Next INR: Tomorrow 3. Pharmacy will [...] therapy will no longer be managed by Raza Burt PHARMD 12/02/2020 * Alondra Morrison RN - 12/01/2020 7:28 PM CDT Heart Failure Nursing Progress Note Admission Date: 11/29/2020 LOS: 2 days Admission Weight: 72.4 kg (159 lb 9.6 oz) Most recent weights (inpatient): Vitals: 11/29/20 1454 11/30/20 0519 12/01/20 0534 Weight: 72.4 kg (159 lb 9.6 oz) 70.8 kg (156 lb) 69.3 kg (152 lb 12.8 oz) Weight change from previous day: -1.5kg Fluid restriction ordered: 1.5L Intake/Output Summary: (Last 24 hours) Intake/Output Summary (Last 24 hours) at 12/01/20201927 Last data filed at 12/01/2020 192 Gross per 24 hour Intake 1427 ml Output 3850 ml Net -2423 ml Is patient incontinent No Anticipated discharge date: TBD Discharge goals: Establish GOC with palliative care team Daily Assessment of Patient Stated Goals: Short Term Goal Identified by patient (Short Term=during hospitalization): Have paracentesis done to remove fluid * Ja George MD - 12/01/2020 11:33 AM CDT General Progress Note Name: Zaria Paulson Today's Date: 12/01/2020 Admission Date: 11/29/2020 LOS: 2 days Assessment/Plan: Principal Problem: Acute on chronic heart failure (HCC) Active Problems: Chronic heart failure with preserved ejection fraction (HCC) Severe tricuspid regurgitation Hx of mechanical aortic valve replacement Chronic anticoagulation Iron deficiency anemia Cirrhosis (HCC) Paroxysmal atrial fibrillation (HCC) Stage 3b chronic kidney disease (HCC) RVF (right ventricular failure) (HCC) Hyponatremia Ms. Paulson is a 60yo F with a PMH of cirrhosis from unclear etiology, non-ischem ic cardiomyopathy, chronic heart failure with preserved ejection fraction, mecha nical aortic valve on warfarin, paroxysmal atrial fibrillation, remote hx of lym phoma and left rectus abdominal muscle hematoma who presented to cardiology clin ic 11/29 with weight gain. Acute on Chronic heart failure with preserved ejection fraction Severe TR Non-ischemic cardiomyopathy - Follows with Dr. 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 Vitals: 11/29/20 1454 11/30/20 0519 12/01/20 0534 Weight: 72.4 kg (159 lb 9.6 oz) 70.8 kg (156 lb) 69.3 kg (152 lb 12.8 oz) PLAN: > 2000mg salt restriction, 1.5L fluid restriction > Strict I/O, daily standing weight > Bumex drip @ 0.5 mg/hr for now > Cardiology HF consulted > Poor overall prognosis with liver and heart disease, Lengthy discussion with patient on 12/[address] Lamb informing her of poor prognosis and potential life span of less than 1 year. Palliative care consultation placed. Mechanical aortic valve -Implanted 2010 - PROJECT GEOPHYSICIST warfarin 4 mg daily - INR 4.1 on admission PLAN: > Continue Warfarin with goal 2.0-3.0 given recent GI bleed (not usual 2.5-3.5 for mechnical valve). Dosing per pharmacy. Paroxysmal atrial fibrillation - Went into AF with RVR during 10/20-10/26 admission, given metoprolol and amiod arone likely 2/2 active GIB - Was not discharged on anti-arrhythmic therapy PLAN: > Monitor on telemetry > BB discontinued given severe RV failure > Digoxin started 11/30 for HR control and RV support, 125 mcg daily starting 12/01 (loaded on 11/30). Anemia; stable Resolved: L flank/hip hematoma and Left rectus abdominal hematoma - 11/04/20 CT a/p: complex enlargement and fluid collection within the left rect us abdominal muscle extending into the retroperitoneum and left pelvic musculatu re suggestive of active extravasation - 11/05/2020: Patient had episode of hematuria with drop in hemoglobin to 6.5. Became hypotensive following blood transfusion, repeat hemoglobin of 4.5, IR krupa led, patient taken for embolization of inferior epigastric artery on 11/06/2020 - CT a/p 11/08/20 -stable slight improvement of left hemipelvis rectus hematoma, small to moderate simple abdominal and pelvic ascites, cirrhosis, small right pl eural effusion, mild body wall edema, no mention of retroperitoneal hemorrhage - Hgb 8.7 on admission and stable from 11/21 - Patient had been taking her warfarin - INR 4.1 on admission - Iron deficiency present on labs on admission - Patient denies hematemesis, melena, hematochezia, worsening hematoma. PLAN: > Warfarin per pharamcy >Continue INR and CBC checks daily > Iron infusion Cirrhosis Hx of colonic AVMs - Follows with Dr. Marti - Patient reports no history of esophageal varices - MELD-Na score: 17 at 11/15/2020 6:10 AM MELD score: 13 at 11/15/2020 6:10 AM Calculated from: Serum Creatinine: 1.07 MG/DL at 11/15/2020 6:10 AM Serum Sodium: 132 MMOL/L at 11/15/2020 6:10 AM Total Bilirubin: 0.9 MG/DL (Using min of 1 MG/DL) at 11/15/2020 6:10 AM INR(ratio): 1.6 at 11/15/2020 6:10 AM Age: 60 years PLAN: > Daily MELD labs > Continue PPI daily > Abdominal ultrasound 12/01 to assess for ascites and possible paracentesis options. Remote hx of lymphoma - s/p chemotherapy in 2004 Anxiety/Depression - PROJECT GEOPHYSICIST zoloft continue - try atarax prn for anxiety Fluids: No IVF Electrolytes: Replace Lytes PRN Nutrition: CardiacDiet DVT PPx: SCDs, warfarin Lines/Drains: PIV Code Status: FULL CODE Ja George MD Med Private D, Team Pager [phone] Subjective Zaria Paulson is a 60 y.o. female. Patient reports feeling improved this mor clarissa compared to yesterday. She states that her shortness of breath is better. S he tried to walk to the bathroom and felt this improvement. She denied dizziness /LH. Moving her bowels. Denies chest pain, F/C/R, vision or hearing changes, abd ominal pain. Tearful after learning of her poor overall prognosis. Medications Scheduled Meds:digoxin (LANOXIN) tablet 125 mcg, 125 mcg, Oral, QDAY fluticasone propionate (FLONASE) nasal spray 1 spray, 1 spray, Each Nostril, QDA Y iron sucrose (VENOFER) 300 mg in sodium chloride 0.9% (NS) IVPB, 300 mg, Intrave nous, QDAY levothyroxine (SYNTHROID) tablet 75 mcg, 75 mcg, Oral, QDAY 30 min before breakf ast oxybutynin chloride (DITROPAN) tablet 5 mg, 5 mg, Oral, TID pantoprazole DR (PROTONIX) tablet 40 mg, 40 mg, Oral, QDAY(21) sertraline (ZOLOFT) tablet 100 mg, 100 mg, Oral, QDAY SODIUM CHLORIDE 0.9 % IV SOLP (Cabinet Override), , , NOW [START ON 12/02/2020] spironolactone (ALDACTONE) tablet 100 mg, 100 mg, Oral, QDA Y warfarin (COUMADIN) tablet 1 mg, 1 mg, Oral, QHS Continuous Infusions: bumetanide (BUMEX) 12.5 mg in empty IV bag 50 mL IV drip (std conc) 0.5 mg/h r (12/01/20 0536) sodium chloride 0.9 % TKO infusion 10 mL/hr at 12/01/20 0824 PRN and Respiratory Meds:acetaminophen Q6H PRN, diphenhydrAMINE HCL Q4H PRN, EPI NEPHrine PF Q5 MIN PRN, hydrOXYzine TID PRN, hyoscyamine Q4H PRN, melatonin QHS PRN, prochlorperazine Q6H PRN, senna QDAY PRN, warfarin, pharmacy to manage Per Pharmacy Objective: Vital Signs: Last Filed Vital Signs: 24 Miguel r Range BP: 109/64 (12/01 1050) Temp: 36.6 C (97.9 F) (12/01 1050) Pulse: 110 (12/01 1050) Respirations: 18 PER MINUTE (12/01 1050) SpO2: 95 % (12/01 1050) BP: (93-109)/(58-66) Temp: [36.3 C (97.4 F)-36.9 C (98.4 F)] Pulse: [94-110] Respirations: [18 PER MINUTE] SpO2: [95 %-100 %] Intensity Pain Scale (Self Report): 0 (11/30/20 1634) Vitals: 11/29/20 1454 11/30/20 0519 12/01/20 0534 Weight: 72.4 kg (159 lb 9.6 oz) 70.8 kg (156 lb) 69.3 kg (152 lb 12.8 oz) Intake/Output Summary: (Last 24 hours) Intake/Output Summary (Last 24 hours) at 12/01/2020 1133 Last data filed at 12/01/2020 0926 Gross per 24 hour Intake 2230 ml Output 3125 ml Net -895 ml Stool Occurrence: 1 Physical Exam GENERAL: NAD, resting in bed, alert, oriented, and awake HEENT: Clear conjunctiva, PERRLA, EOMI, JVD present to ear, HJR present NECK: supple RESPIRATORY: crackles in bases, no respiratory distress CV: tachycardic, irregular rythm ABDOMEN: soft, active bowel sounds present, moderatly-distended, no rebound or g uarding, NTTP EXTREMITIES: BLE 3+ pitting edema : n/a SKIN: no rashes or lesions NEUROLOGIC: normal movement, normal sensation, CN2-12 intact PSYCHIATRIC: cooperative, positive for depressed mood or anxiety Lab Review Pertinent labs reviewed Point of Care Testing (Last 24 hours) Glucose: 87 (12/01/20 0604) Radiology and other Diagnostics Review: Pertinent radiology reviewed. Ja George MD Pager * Ruddy Márquez PHARMD - 12/01/2020 9:02 AM CDT Pharmacy Warfarin Note Subjective: Pharmacy consulted to assist with management of warfarin therapy. Objective: Zaria Paulson is a 60 y.o. female receiving warfarin for Mechanical AVR Comme nt: Mechanical AVR. Current Warfarin Orders Medication Dose Route Frequency warfarin (COUMADIN) tablet 1 mg 1 mg Oral QHS warfarin, pharmacy to manage 1 each Service Per Pharmacy Bridge therapy: n/a. Warfarin dose for Ms. Paulson prior to admission: 4 mg daily INR Date/Time Value Ref Range Status 12/01/2020 0604 3.0 (H) 0.8 - 1.2 Final 11/30/2020 0425 3.3 (H) 0.8 - 1.2 Final 11/29/2020 1040 4.1 (H) 0.8 - 1.2 Final Drug interaction(s): no. Assessment: Goal INR for Ms. Paulson is 2-3 for Mechanical AVR Comment: Mechanical AVR. INR: INR (no units) Date/Time Value 12/01/2020 0604 3.0 (H) INR Home (no units) Date/Time Value 11/02/2020 0000 2.4 INR POC (no units) Date/Time Value 11/21/2020 0824 1.7 (H) Plan: 1. INR 3.0, with downward trend stablizing. At goal, however optimal target boaz ser to 2.0 with GI bleed history. Adjusting to 1mg tonight. Patient will likely need daily adjustments over next few days. 2. Next INR: Tomorrow 3. Pharmacy will [...] will no longer be managed by Pharmac y Ruddy Márquez PHARMD 12/01/2020 * Basilia Sequeira, DONOR RELATIONS OFFICER-COMPANY CONTROLLER - 12/01/2020 7:38 AM CDT Heart Failure Consult NAME:Zaria Paulson :1960 AGE: 60 y.o. ADMISSION DATE: 11/29/2020 DAYS ADMITTED: LOS: 2 days Principal Problem: Acute on chronic heart failure (HCC) Active Problems: Chronic heart failure with preserved ejection fraction (HCC) Severe tricuspid regurgitation Hx of mechanical aortic valve replacement Chronic anticoagulation Iron deficiency anemia Cirrhosis (HCC) Paroxysmal atrial fibrillation (HCC) Stage 3b chronic kidney disease (HCC) RVF (right ventricular failure) (HCC) Hyponatremia Zaria Paulson is a 60 y.o. female with chronic heart failure with preserved e jection fraction, nonischemic cardiomyopathy,s/paortic valve replacement x3 (on chronic anticoagulation for mechanical valve),tricuspid valve regurgitatio n,paroxysmal atrial fibrillation, hypertension, previous endocarditis,iron d eficiency anemia -received IV iron, chronic kidney disease,hypothyroidism, dep ression, non-Hodgkins lymphoma and cirrhosis (etiology secondary to chemothera py from treatment with non-Hodgkin lymphoma). Patient recently admitted to [facility] 14 days 11/15/2020 wit h GI bleed and nontraumatic rectus hematoma and was previously hospitalized [facility] of [place] for GI bleed in setting of cirrhosis. During most recent hospit alization she underwent mesenteric angiogram and coil embolization of left infer ior epigastric artery. She received a total of 3 units PRBCs. She was resumed on warfarin for her mechanical valve prior to discharge. She had ongoing hematu alysha along with urinary retention and plans for outpatient follow-up with urology including CT urogram and cystoscopy. 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 She has contacted [facility] on several occasi ons since most recent hospital discharge reporting weight gain as well as seen o n 2 separate occasions. First on 11/21 in a post hospital visit when she was giv en IV Bumex and restarted on spironolactone. Bumex has been incrementally incre ased, currently at 4 mg twice daily. She was seen again on 11/29 in follow-up whe re she continued to be significantly hypervolemic and hospital admission was rec ommended. She was admitted to Recommendations: Today: 1. Continue Bumex drip 0.5 mg/h as pt had good response overnight. 2. Echocardiogram completed 11/30/2020: see results below. 3. Abdominal ultrasound 12/01 to assess for ascites and possible paracentesis opt ions. (Ordered) 4. Increase spironolactone to 100 mg daily (ordered). 5. Continue digoxin (started 11/30) for HR control and RV support. Given 500 mcg loading 11/30 and then 125 mcg daily starting 12/01. Dig level ordered for 12/02 AM. 6. Continue warfarin with goal 2.0-3.0 given recent GI bleed (not usual 2.5-3.5 for mechnical valve). Warfarin dosing managed by pharmacy team. 7. Patient has significant RV failure with severe TR with limited treatment opti ons. She may need inotrope support in the near future. She also has chronic li minal disease. This multiorgan failure has poor prognosis. Lengthy discussion wi th patient on 12/[address] Lamb informing her of poor prognosis and potential li fe span of less than 1 year. Palliative care consultation placed after agreed up on by primary team. Patient is aware of palliative care team has been consulted . 8. Potassium 2.9 this a.m. Aggressive potassium replacement ordered with 20 mEq IV +60 mEq p.o. Will repeat BMP at 1400. (Ordered) Ongoin. BMP twice a day. Magnesium level daily. Keep Potassium greater than 4.0 and Magnesium greater than 2.0. 2. 2000mg sodium dietary restriction. 3. Fluid Restriction:1.5 4. Strict I/O. Goal output: net neg 2 and 3L/24 hour 5. Daily standing scale weight. Goal Dry Weight: 140 lbs Primary team responsible for placing [facility] App[facility]ment Request order set for "Cardiology: Heart Failure" appointment request within 24- 48 hours of discharge. (Please do not place order any earlier in effort to reduc e possible need for cancellation and rescheduling of visit). Pt examined and discussed with Dr. Lamb. Dr. Peres informed of above orders. Basilia Sequeira APRN-COMPANY CONTROLLER [phone] Assessment: Acute on chronic combined RV systolic and diastolic HFpEF, EF: 60%. RV failure Echocardiogram completed 11/30/2020: LV normal size, moderate concentric hypertrop hy, LVEF 55%, unable to assess diastolic function. RV severely dilated, RV syst olic function severely reduced. IVS 1.40 cm. Severe biatrial dilatation. CVP 1 0-20 mmHg. Moderate mitral annular calcification with mild MVR. Severe TVR. M echanical aortic valve with mean gradient 11 mmHg and peak velocity 2.5 m/s. PA SP 76 mmHg. L/RHC 06/08/2020: RA 20, RV 44/14, PA P 49/24 with mean 32, PCWP 25 mmHg. TPG 7 mmHg, PVR 1.3 Wood units. CO/CI by TD 5.33/3.18, by Yg 9.24/5.5. No signific ant coronary stenosis. -Previously scheduled for CardioMEMS on 10/20 but was hospitalized at the time, a nd now not a good candidate due to recent bleeding. Major Complications or Comorbidities (ALF): acute/ acute on chronic systolic and /or diastolic heart failure NYHA functional class IV (unable to carry on any physical activity without sympt oms of HF, or symptoms of HF at rest), ACC Stage C (structural heart disease with prior or current symptoms of HF). She presents with signs of hypervolemia with right ventricular failure without signs of low flow state. Admission BNP: 396 Admission Weight: 72.4 kg (159 lb 9.6 oz) Most recent weights (inpatient): Vitals: 11/29/20 1454 11/30/20 0519 12/01/20 0534 Weight: 72.4 kg (159 lb 9.6 oz) 70.8 kg (156 lb) 69.3 kg (152 lb 12.8 oz) I/O: net I/O for entire hospital stay: -2.8 L, net for last 24 hrs -0.9 L Diuretic Therapy Prior to admission dose Bumex 4 mg twice daily since 11/23 Given on admission 11/29: Bumex 5 mg IV x1, metolazone 2.5 mg p.o. x1 Daily Dosing 11/30- 12/01: Bumex gtt 0.5 mg/h GDMT PROJECT GEOPHYSICIST Changes BB metoprolol tartrate d/c'd in early October d/t RV failure 11/29: primary team resumed metoprolol tartrate 12.5 mg twice daily 11/30: discontinue in setting of severe RV dysfunction. Loaded w/ digoxin 500 mcg then 125 mcg daily. ACEI/ARB/ARNI No Ejection Fraction >= 40% Aldosterone Antagonist spironolactone 25 mg daily Hydralazine/Nitrate No (EF>40) Ivabradine No; Not treated with maximally tolerated dose beta blockers or beta b lockers contraindicated HRMT No (EF>35%) Anticoagulation for Afib/flutter Warfarin 11/29: INR 4.1, warfarin held 11/30: INR 3.3, warfarin 2 mg 12/01: INR 3.0, managed by pharmacy team > 11/30: start digoxin 500 mcg x 1, the 125 mcg daily starting 12/01. Digoxin level on 12/02. > 12/01: Palliative care consultation for goals of care conversation > 12/01: Abdominal ultrasound to assess for possible ascites collection for paracentesis Testing/Procedures 11/30 echocardiogramsee above Atrial Fibrillation (Paroxysmal)/ Atrial Tachycardia/ s/p AorticValveReplacement: Initial surgery in 1975 at age [age] years old, second sternotomy 1997 when biopros thetic aortic valve was replaced, third sternotomy in 2010 with mechanical valve replacement - see echo above -She is onwarfarinoral anticoagulation. Goal INR 2.03.0. (Goal had been lowered to 1.62.0 with recent hospitalization but Dr. Starr have readjusted to 2.03.0). Her anticoagulation is managed by Dr. Starr. > INR daily- see table above > 11/30: digoxin 500 mcg x 1 then 125 mcg daily. Dig level ordered for 12/02 AM. SevereTricuspidRegurgitation: Pulmonary hypertension - Follows with Dr. Rosales -Her echo on 10/21/2020 showed severe tricuspid regurgitation, PA pressure 79 mmH g. >Plan is to continue to monitor with hopes that reducing her volume overload will improve her tricuspid regurgitation. > Palliative care consultation Chronic Kidney Disease - StageIII: Chronic hyponatremia -creatinine on admission 11/29 1.03>0.98>1.0 today (12/01) -Sodium on admission 133> 132>133 today (12/01) > Monitor twice daily while on Bumex drip Hypoalbuminemia Albumin 2.9 on 11/30 > Encourage protein intake Liver cirrhosis She follows with hepatology. [place] to be secondary to chemotherapy, has had prev ious liver biopsy. > Continue spironolactone and Bumex as above Anemia Iron deficiency Recent GI bleeding in [...] range for mechanical valve 2.03.[address] Starr. -She denies any signs or symptoms of bleeding Hemoglobin 8.7 on admission 11/29>8.6>8.8 today (12/01) Iron panel 11/29: Total iron 23, 7% saturation, TIBC 331, ferritin 112 > Continue to monitor closely > IV iron sucrose per primary team () Hematuria Urinary retention Seen by urology during recent hospitalization with plan for outpatient CT urogra m and cystoscopy. > Follow-up appointment on 12/22/[address] urogram and cystoscopy Non-Hodgkin's lymphoma diagnosed in 2004 underwent chemotherapy follows with hematology. ROS:. She currently complains of fatigue, abdominal fullness, peripheral edema and weight change. She is feeling better today. Her symptoms continue to steadil y improve. She currently denies lightheadedness, near syncope, palpitations, ch est pain and muscle cramping. Review of Systems: A comprehensive review of systems was negative except for: as noted above Medical History: Diagnosis Date Cancer (HCC) Non- hodgkins lymphoma, chemo Disorder of thyroid gland Hypertension Iron deficiency anemia 08/03/2020 Iron deficiency anemia 08/03/2020 Surgical History: Procedure Laterality Date AORTIC VALVE REPLACEMENT 05/2009 mechanical ESOPHAGOGASTRODUODENOSCOPY WITH BIOPSY - FLEXIBLE N/A 06/06/2020 Performed by Bao Hernández MD at [facility] ENDO COLONOSCOPY DIAGNOSTIC WITH SPECIMEN COLLECTION BY BRUSHING/ WASHING - FLEXI BLE N/A 06/06/2020 Performed by Bao Hernández MD at [facility] ENDO ANGIOGRAPHY CORONARY ARTERY WITH RIGHT AND LEFT HEART CATHETERIZATION N/A Performed by Higinio Clarke MD at [facility] PREVENTION COORDINATOR POSSIBLE PERCUTANEOUS CORONARY STENT PLACEMENT WITH ANGIOPLASTY N/A Performed by Higinio Clarke MD at [facility] PREVENTION COORDINATOR ESOPHAGOGASTRODUODENOSCOPY WITH SPECIMEN COLLECTION BY BRUSHING/ WASHING N/A 10/21/2020 Performed by Cosmo Gomez MD at [facility] ENDO SIGMOIDOSCOPY WITH CONTROL OF BLEEDING - FLEXIBLE N/A 10/21/2020 Performed by Cosmo Gomez MD at [facility] ENDO SIGMOIDOSCOPY WITH DIRECTED SUBMUCOSAL INJECTION - FLEXIBLE 10/21/2020 Performed by Cosmo Gomez MD at [facility] ENDO Family History Problem Relation Age of Onset COPD Mother Social History Socioeconomic History Marital status: Life Partner Spouse name: Not on file Number of children: 3 Years of education: Not on file Highest education level: Not on file Occupational History Not on file Tobacco Use Smoking status: Never Smoker Smokeless tobacco: Never Used Vaping Use Vaping Use: Never used Substance and Sexual Activity Alcohol use: Not Currently Drug use: Never Sexual activity: Not Currently Other Topics Concern Not on file Social History Narrative Not on file Objective: Allergies: No Known Allergies Medications: Scheduled Meds:digoxin (LANOXIN) tablet 125 mcg, 125 mcg, Oral, QDAY fluticasone propionate (FLONASE) nasal spray 1 spray, 1 spray, Each Nostril, QDA Y iron sucrose (VENOFER) 300 mg in sodium chloride 0.9% (NS) IVPB, 300 mg, Intrave nous, QDAY levothyroxine (SYNTHROID) tablet 75 mcg, 75 mcg, Oral, QDAY 30 min before breakf ast oxybutynin chloride (DITROPAN) tablet 5 mg, 5 mg, Oral, TID pantoprazole DR (PROTONIX) tablet 40 mg, 40 mg, Oral, QDAY(21) sertraline (ZOLOFT) tablet 100 mg, 100 mg, Oral, QDAY spironolactone (ALDACTONE) tablet 50 mg, 50 mg, Oral, QDAY warfarin (COUMADIN) tablet 2 mg, 2 mg, Oral, QHS Continuous Infusions: bumetanide (BUMEX) 12.5 mg in empty IV bag 50 mL IV drip (std conc) 0.5 mg/h r (12/01/20 0536) PRN and Respiratory Meds:acetaminophen Q6H PRN, diphenhydrAMINE HCL Q4H PRN, EPI NEPHrine PF Q5 MIN PRN, hydrOXYzine TID PRN, hyoscyamine Q4H PRN, melatonin QHS PRN, prochlorperazine Q6H PRN, senna QDAY PRN, warfarin, pharmacy to manage Per Pharmacy Medications Prior to Admission Medication Sig Dispense Refill Last Dose acetaminophen (TYLENOL EXTRA STRENGTH) 500 mg tablet Take 500 mg by mouth ev [place] 4 hours as needed for Pain. Max of 4,000 mg of acetaminophen in 24 hours. 11/29/2020 ascorbic acid (VITAMIN C) 500 mg tablet Take 500 mg by mouth daily. 11/30/19 bumetanide (BUMEX) 1 mg tablet Take four tablets by mouth twice daily. 120 t ablet 1 11/29/2020 calcium carbonate (OS-KRUPA) 1250 mg tablet Take 1,250 mg by mouth daily. 11/29/2020 ergocalciferol (VITAMIN D-2) 1,250 mcg (50,000 unit) capsule Take 1 capsule by mouth every 7 days. 11/29/2020 fluticasone propionate (FLONASE) 50 mcg/actuation nasal spray, suspension Ap ply to each nostril as directed daily. Shake bottle gently before using. hyoscyamine (ANASPAZ) 0.125 mg rapid dissolve tablet Place one tablet under tongue every 4 hours as needed. 180 tablet 0 11/29/2020 levothyroxine (SYNTHROID) 75 mcg tablet Take 75 mcg by mouth daily 30 minute s before breakfast. 11/29/2020 mupirocin (BACTROBAN) 2 % topical ointment Apply 1 g topically to affected a constantino three times daily. 11/27/[address] (PRILOSEC) 40 mg capsule Take 40 mg by mouth twice daily. oxybutynin chloride (DITROPAN) 5 mg tablet Take one tablet by mouth three ti mes daily. 180 tablet 0 11/29/[address] (PROTONIX) 40 mg tablet Take 40 mg by mouth twice daily. potassium chloride SR (K-DUR) 20 mEq tablet Take 20 mEq by mouth twice daily . Take with a meal and a full glass of water. 11/29/2020 sertraline (ZOLOFT) 100 mg tablet Take 100 mg by mouth daily. sertraline (ZOLOFT) 25 mg tablet Take 25 mg by mouth daily. 11/29/2020 spironolactone (ALDACTONE) 25 mg tablet Take one tablet by mouth daily. Take with food. 30 tablet 11 11/29/2020 VASCEPA 1 gram capsule TAKE 2 CAPSULES BY MOUTH TWICE DAILY WITH MEALS 11/29 warfarin (COUMADIN) 1 mg tablet Take four tablets by mouth daily to equal 4m g dose. 120 tablet 0 warfarin (COUMADIN) 4 mg tablet Take one tablet by mouth daily. 90 tablet 1 11/29/2020 Vital Signs: Last Filed Vital Signs: 24 Hour Range BP: 97/61 (12/01 349) Temp: 36.3 C (97.4 F) (12/01 349) Pulse: 98 (12/01 349) Respirations: 18 PER MINUTE (12/01 349) SpO2: 96 % (12/01 349) BP: (93-101)/(59-66) Temp: [36.3 C (97.4 F)-36.9 C (98.4 F)] Pulse: [94-99] Respirations: [18 PER MINUTE] SpO2: [95 %-100 %] Intensity Pain Scale (Self Report): 0 (11/30/20 1634) Wt Readings from Last 10 Encounters: 12/01/20 69.3 kg (152 lb 12.8 oz) 11/29/20 72 kg (158 lb 12.8 oz) 11/21/20 68.7 kg (151 lb 6.4 oz) 11/15/20 65.6 kg (144 lb 9.6 oz) 10/26/20 60.4 kg (133 lb 3.2 oz) 10/21/20 61.7 kg (136 lb 0.4 oz) 10/12/20 61.7 kg (136 lb) 09/07/20 61.2 kg (135 lb) 08/24/20 60.6 kg (133 lb 9.6 oz) 08/22/20 59.9 kg (132 lb) Physical Exam: General Appearance: no distress, overweight Skin: warm and dry Lips & Oral Mucosa: no pallor or cyanosis Digits and Nails: normal color, smooth symmetric nails and digits Eyes: conjunctivae and lids normal Neck Veins: JVP 13cm, HJR positivesevere TR on echo Auscultation: breathing comfortably, lungs diminished but clear to auscultation, bilateral lower lobe rales, no rhonchi, exp wheezing Cardiac Auscultation: Regular rhythm, S1, S2, no S3 or S4, 3-4/6 murmur Radial Arteries: normal symmetric radial pulses Pedal Pulses: pulses 2+, symmetric Lower Extremity Edema: 1+ bilat to knees Abdominal Exam: Distended, firm (less today than yesterday), slightly tender Gait & Station: Resting in bed Muscle Strength: normal strength and tone Orientation: clear historian, good insight Laboratory Review: CBC w/Diff Lab Results Component Value Date/Time WBC 6.3 12/01/2020 06:04 AM RBC 2.96 (L) 12/01/2020 06:04 AM HGB 8.8 (L) 12/01/2020 06:04 AM HCT 26.9 (L) 12/01/2020 06:04 AM MCV 91.1 12/01/2020 06:04 AM MCH 29.9 12/01/2020 06:04 AM MCHC 32.8 12/01/2020 06:04 AM RDW 18.3 (H) 12/01/2020 06:04 AM PLTCT 365 12/01/2020 06:04 AM MPV 6.6 (L) 12/01/2020 06:04 AM Lab Results Component Value Date/Time NEUT 82 (H) 12/01/2020 06:04 AM ANC 5.14 12/01/2020 06:04 AM LYMA 5 (L) 12/01/2020 06:04 AM ALC 0.32 (L) 12/01/2020 06:04 AM TINY 8 12/01/2020 06:04 AM AMC 0.52 12/01/2020 06:04 AM EOSA 4 12/01/2020 06:04 AM AEC 0.24 12/01/2020 06:04 AM BASA 1 12/01/2020 06:04 AM ABC 0.05 12/01/2020 06:04 AM Chemistry Lab Results Component Value Date/Time NA 133 (L) 12/01/2020 06:04 AM K 2.9 (L) 12/01/2020 06:04 AM CL 97 (L) 12/01/2020 06:04 AM CO2 26 12/01/2020 06:04 AM GAP 10 12/01/2020 06:04 AM BUN 17 12/01/2020 06:04 AM CR 1.00 12/01/2020 06:04 AM GLU 87 12/01/2020 06:04 AM GLU 143 (H) 07/28/2020 09:45 AM Lab Results Component Value Date/Time CA 8.4 (L) 12/01/2020 06:04 AM PO4 2.7 11/29/2020 10:40 AM ALBUMIN 2.9 (L) 12/01/2020 06:04 AM TOTPROT 6.0 12/01/2020 06:04 AM ALKPHOS 107 12/01/2020 06:04 AM AST 23 12/01/2020 06:04 AM ALT 9 12/01/2020 06:04 AM TOTBILI 0.7 12/01/2020 06:04 AM GFR 57 (L) 12/01/2020 06:04 AM GFRAA >60 12/01/2020 06:04 AM Renal Function Lab Results Component Value Date/Time NA 133 (L) 12/01/2020 06:04 AM K 2.9 (L) 12/01/2020 06:04 AM CL 97 (L) 12/01/2020 06:04 AM CO2 26 12/01/2020 06:04 AM GAP 10 12/01/2020 06:04 AM BUN 17 12/01/2020 06:04 AM BUN 15 11/30/2020 04:25 AM BUN 17 11/29/2020 10:40 AM Lab Results Component Value Date/Time CR 1.00 12/01/2020 06:04 AM CR 0.98 11/30/2020 04:25 AM CR 1.03 (H) 11/29/2020 10:40 AM GLU 87 12/01/2020 06:04 AM GLU 143 (H) 07/28/2020 09:45 AM CA 8.4 (L) 12/01/2020 06:04 AM PO4 2.7 11/29/2020 10:40 AM ALBUMIN 2.9 (L) 12/01/2020 06:04 AM Lipid Profile INR Lab Results Component Value Date CHOL 76 11/29/2020 TRIG 77 11/29/2020 HDL 25 (L) 11/29/2020 LDL 43 11/29/2020 VLDL 15 11/29/2020 NONHDLCHOL 51 11/29/2020 Lab Results Component Value Date INR 3.0 (H) 12/01/2020 INR 2.4 11/02/2020 Chest X-Ray: 11/29 1. Stable mild cardiomegaly and indistinct pulmonary vasculature suggesting pu lmonary edema. 2. Moderate right and trace left pleural effusions with bibasilar atelectasis. Tele/ECG: SR 90s Echocardiogram Details: Echo Results (Last 3 results in the past 3 years) Echo EF LVIDD LA Size IVS LVPW Rest PAP (11/30/20) 55 (11/30/20) 4.10 (11/30/20) 5.80 (11/30/20) 1.40 (11/30/20) 1.40 (11/30/20) 76 (10/21/20) 60 (10/21/20) 4.46 (10/21/20) 5.96 (10/21/20) 1.21 (10/21/20) 1.16 (10/21/20) 79 (05/22/20) 60 (05/22/20) 4.31 (05/22/20) 6.56 (05/22/20) 1.21 (05/22/20) 1.30 (05/22/20) 64 Associated attestation - Ramo Lamb MD - 12/01/2020 1:37 PM CDT I personally interviewed and examined the patient. I have reviewed the history, physical examination, impression and plan as outlined by the advanced practice n arnold / nurse practitioner / LUCA and I concur unless otherwise noted. JVP remains elevated. We are working to optimize medications for RV failure and severe TR. 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 We will support patient but we recommend consulting with palliative care. Patient was understandably upset with news of overall poor pro gnosis she really had not heard much about this before. We hope all consulting s ervices can focus consult questions on optimizing quality of life since without liver transplant and without resolution of advanced RV failure she has a likely less than 1 year survival based on recent admissions and ongoing struggles with ascites and volume overload. She is also heading toward low cardiac output state / cardiogenic shock which would require discussion on role for inotropes in the future. Total time 35 minutes. Estimated counseling time 20 minutes including risks/bene fits/alternatives discussion related to plan as outlined and answering all quest ions related to the care plan while educating on the importance of adherence to recommended therapies, outpatient follow-up, and also addressing prognosis speci fic to the patient/family concerns. Thank you for allowing us to participate in the shared care of your patient. Ramo Lamb MD Advanced Heart Failure [facility] Transplant [employer] Statistical Programmer * Natalya Dillon RN - 12/01/2020 5:38 AM CDT Heart Failure Nursing Progress Note Admission Date: 11/29/2020 LOS: 2 days Admission Weight: 72.4 kg (159 lb 9.6 oz) Most recent weights (inpatient): Vitals: 11/29/20 1454 11/30/20 0519 12/01/20 0534 Weight: 72.4 kg (159 lb 9.6 oz) 70.8 kg (156 lb) 69.3 kg (152 lb 12.8 oz) Weight change from previous day: -1.5kg Fluid restriction ordered: 1.5L Intake/Output Summary: (Last 24 hours) Intake/Output Summary (Last 24 hours) at 12/01/2020 0538 Last data filed at 12/01/2020 0537 Gross per 24 hour Intake 1555.36 ml Output 3475 ml Net -1919.64 ml Is patient incontinent No Anticipated discharge date: TBD Discharge goals: diurese Daily Assessment of Patient Stated Goals: Short Term Goal Identified by patient (Short Term=during hospitalization): go ho me * Ruddy Márquez, PHARMD - 11/30/2020 3:37 PM CDT Pharmacy Warfarin Note Subjective: Pharmacy consulted to assist with management of warfarin therapy. Objective: Zaria Paulson is a 60 y.o. female receiving warfarin for Mechanical AVR Comme nt: Mechanical AVR. Current Warfarin Orders Medication Dose Route Frequency warfarin (COUMADIN) tablet 2 mg 2 mg Oral QHS warfarin, pharmacy to manage 1 each Service Per Pharmacy Bridge therapy: n/a. Warfarin dose for Ms. Paulson prior to admission: 4 mg daily INR Date/Time Value Ref Range Status 11/30/2020 0425 3.3 (H) 0.8 - 1.2 Final 11/29/2020 1040 4.1 (H) 0.8 - 1.2 Final 11/28/2020 0000 2.9 (H) 0.8 - 1.4 Final Drug interaction(s): no. Assessment: Goal INR for Ms. Paulson is 2-3 for Mechanical AVR Comment: Mechanical AVR. INR: INR (no units) Date/Time Value 11/30/2020 0425 3.3 (H) INR Home (no units) Date/Time Value 11/02/2020 0000 2.4 INR POC (no units) Date/Time Value 11/21/2020 0824 1.7 (H) Plan: 1. INR trending down after holding last evening. Restarting at low dose tonight , in attempt to avoid holding. 2mg tonight, likely to increase back to 3-4mg ran ge tomorrow. 2. Next INR: Tomorrow 3. Pharmacy will [...] therapy will no longer be managed by Elen Márquez PHARMD 11/30/2020 * Ja George MD - 11/30/2020 11:30 AM CDT General Progress Note Name: Zaria Paulson Today's Date: 11/30/2020 Admission Date: 11/29/2020 LOS: 1 day Assessment/Plan: Principal Problem: Acute on chronic heart failure (HCC) Ms. Paulson is a 60yo F with a PMH of cirrhosis from unclear etiology, non-ischem ic cardiomyopathy, chronic heart failure with preserved ejection fraction, mecha nical aortic valve on warfarin, paroxysmal atrial fibrillation, remote hx of lym phoma and left rectus abdominal muscle hematoma who presented to cardiology clin ic 11/29 with weight gain. Acute on Chronic heart failure with preserved ejection fraction Severe TR Non-ischemic cardiomyopathy - Follows with Dr. 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 PLAN: > 2000mg salt restriction, 1.5L fluid restriction > Strict I/O, daily standing weight > Bumex drip @ 0.5 mg/hr for now > Cardiology HF consulted Mechanical aortic valve -Implanted 2010 - PROJECT GEOPHYSICIST warfarin 4 mg daily - INR 4.1 on admission PLAN: > Warfarin per pharmacy > INR goal 2-3 per Cardiology recs Paroxysmal atrial fibrillation - Went into AF with RVR during 10/20-10/26 admission, given metoprolol and amiod arone likely 2/2 active GIB - Was not discharged on anti-arrhythmic therapy PLAN: > Monitor on telemetry > Metoprolol 12.5 mg PO BID Anemia; stable Resolved: L flank/hip hematoma and Left rectus abdominal hematoma - 11/04/20 CT a/p: complex enlargement and fluid collection within the left rect us abdominal muscle extending into the retroperitoneum and left pelvic musculatu re suggestive of active extravasation - 11/05/2020: Patient had episode of hematuria with drop in hemoglobin to 6.5. Became hypotensive following blood transfusion, repeat hemoglobin of 4.5, IR krupa led, patient taken for embolization of inferior epigastric artery on 11/06/2020 - CT a/p 11/08/20 -stable slight improvement of left hemipelvis rectus hematoma, small to moderate simple abdominal and pelvic ascites, cirrhosis, small right pl eural effusion, mild body wall edema, no mention of retroperitoneal hemorrhage - Hgb 8.7 on admission and stable from 11/21 - Patient had been taking her warfarin - INR 4.1 on admission - Iron deficiency present on labs on admission - Patient denies hematemesis, melena, hematochezia, worsening hematoma. PLAN: > Warfarin per pharamcy >Continue INR and CBC checks daily > Iron infusion Cirrhosis Hx of colonic AVMs - Follows with Dr. Marti - Patient reports no history of esophageal varices - MELD-Na score: 17 at 11/15/2020 6:10 AM MELD score: 13 at 11/15/2020 6:10 AM Calculated from: Serum Creatinine: 1.07 MG/DL at 11/15/2020 6:10 AM Serum Sodium: 132 MMOL/L at 11/15/2020 6:10 AM Total Bilirubin: 0.9 MG/DL (Using min of 1 MG/DL) at 11/15/2020 6:10 AM INR(ratio): 1.6 at 11/15/2020 6:10 AM Age: 60 years PLAN: > Daily MELD labs > Continue PPI daily Remote hx of lymphoma - s/p chemotherapy in 2004 Anxiety/Depression - PROJECT GEOPHYSICIST zoloft continue - try atarax prn for anxiety Fluids: No IVF Electrolytes: Replace Lytes PRN Nutrition: CardiacDiet DVT PPx: SCDs, warfarin Lines/Drains: PIV Code Status: FULL CODE Ja George MD Med Private D, Team Pager [phone] Subjective Zaria Paulson is a 60 y.o. female. Patient reports feeling improved this mor clarissa compared to yesterday. She states that her shortness of breath is better. S he tried to walk to the bathroom and felt this improvement. She denied dizziness /LH. Moving her bowels. Denies chest pain, F/C/R, vision or hearing changes, abd ominal pain. Medications Scheduled Meds:fluticasone propionate (FLONASE) nasal spray 1 spray, 1 spray, Ea ch Nostril, QDAY iron sucrose (VENOFER) 300 mg in sodium chloride 0.9% (NS) IVPB, 300 mg, Intrave nous, QDAY levothyroxine (SYNTHROID) tablet 75 mcg, 75 mcg, Oral, QDAY 30 min before breakf ast oxybutynin chloride (DITROPAN) tablet 5 mg, 5 mg, Oral, TID pantoprazole DR (PROTONIX) tablet 40 mg, 40 mg, Oral, QDAY(21) sertraline (ZOLOFT) tablet 100 mg, 100 mg, Oral, QDAY spironolactone (ALDACTONE) tablet 25 mg, 25 mg, Oral, QDAY Continuous Infusions: bumetanide (BUMEX) 12.5 mg in empty IV bag 50 mL IV drip (std conc) 0.5 mg/h r (11/30/20 0556) PRN and Respiratory Meds:acetaminophen Q6H PRN, diphenhydrAMINE HCL Q4H PRN, EPI NEPHrine PF Q5 MIN PRN, hydrOXYzine TID PRN, hyoscyamine Q4H PRN, melatonin QHS PRN, prochlorperazine Q6H PRN, senna QDAY PRN, warfarin, pharmacy to manage Per Pharmacy Objective: Vital Signs: Last Filed Vital Signs: 24 Miguel r Range BP: 95/62 (11/30 0839) Temp: 36.5 C (97.7 F) (11/30 838) Pulse: 94 (11/30 838) Respirations: 18 PER MINUTE (11/30 838) SpO2: 95 % (11/30 838) Height: 157.5 cm (62") (11/30 518) BP: (94-113)/(62-71) Temp: [36.3 C (97.3 F)-36.9 C (98.4 F)] Pulse: [92-120] Respirations: [18 PER MINUTE-22 PER MINUTE] SpO2: [92 %-99 %] Vitals: 11/29/20 1454 11/30/20518 Weight: 72.4 kg (159 lb 9.6 oz) 70.8 kg (156 lb) Intake/Output Summary: (Last 24 hours) Intake/Output Summary (Last 24 hours) at 11/30/2020 1130 Last data filed at 11/30/2020 1027 Gross per 24 hour Intake 1355.36 ml Output 3550 ml Net -2194.64 ml Physical Exam GENERAL: NAD, resting in bed, alert, oriented, and awake HEENT: Clear conjunctiva, PERRLA, EOMI, JVD present to ear, HJR present NECK: supple RESPIRATORY: crackles in bases, no respiratory distress CV: tachycardic, irregular rythm ABDOMEN: soft, active bowel sounds present, moderatly-distended, no rebound or g uarding, NTTP EXTREMITIES: BLE 3+ pitting edema : n/a SKIN: no rashes or lesions NEUROLOGIC: normal movement, normal sensation, CN2-12 intact PSYCHIATRIC: cooperative, positive for depressed mood or anxiety Lab Review Pertinent labs reviewed Point of Care Testing (Last 24 hours) Glucose: 89 (11/30/20 0425) Radiology and other Diagnostics Review: Pertinent radiology reviewed. Ja George MD Pager * Natalya Dillon RN - 11/30/2020 5:23 AM CDT Heart Failure Nursing Progress Note Admission Date: 11/29/2020 LOS: 1 day Admission Weight: 72.4 kg (159 lb 9.6 oz) Most recent weights (inpatient): Vitals: 11/29/20 1454 11/30/20 0519 Weight: 72.4 kg (159 lb 9.6 oz) 70.9 kg (156 lb 3.2 oz) Weight change from previous day: -1.5kg Fluid restriction ordered: 1.5L Intake/Output Summary: (Last 24 hours) Intake/Output Summary (Last 24 hours) at 11/30/2020 05 Last data filed at 11/30/2020 0519 Gross per 24 hour Intake 1000 ml Output 2450 ml Net -1450 ml Is patient incontinent No Anticipated discharge date: TBD Discharge goals: diurese Daily Assessment of Patient Stated Goals: Short Term Goal Identified by patient (Short Term=during hospitalization): contr ol HR documented in this encounter H&P Notes * Berna Walton MD - 11/29/2020 3:19 PM CDT Admission History and Physical Examination Name: Zaria Paulson 1 Admission Date: 11/29/2020 Assessment/Plan: Principal Problem: Acute on chronic heart failure (HCC) Ms. Paulson is a 60yo F with a PMH of cirrhosis from unclear etiology, non-ischem ic cardiomyopathy, chronic heart failure with preserved ejection fraction, mecha nical aortic valve on warfarin, paroxysmal atrial fibrillation, remote hx of lym phoma and left rectus abdominal muscle hematoma who presented to cardiology clin ic today with weight gain. Acute on Chronic heart failure with preserved ejection fraction Severe TR Non-ischemic cardiomyopathy - Follows with Dr. Bustillo, was previously scheduled for Cardio[facility] 10/20 b ut was admitted for GIB - 10/21/20 echo: LVEF 60%, RV moderate dilated, severe biatrial dilatation, well -seated prosthesis in AV, torrential TR, markedly elevated CVP - PROJECT GEOPHYSICIST Bumex 3mg BID and spironolactone; increased to Bumex 4mg BID on 11/23 due to weight gain - Dry weight ~135lbs (discharged weight 151 on 11/21) - Weight on admission: 159 - Given bumex 2mg in cardiology clinic PLAN: > Bumex 5mg IV now with metolazone 2.5mg now; may need to redose tonight; if not having good diuresis, may need bumex drip > Cardiology HF consulted > 2000mg salt restriction, 1.5L fluid restriction > Strict I/O, daily standing weight > Echo in AM Mechanical aortic valve -Implanted 2010 - PROJECT GEOPHYSICIST warfarin 4 mg daily - INR 4.1 on admission PLAN: > Warfarin per pharmacy > INR goal 2-3 per Cardiology recs Paroxysmal atrial fibrillation - Went into AF with RVR during 10/20-10/26 admission, given metoprolol and amiod arone likely 2/2 active GIB - Was not discharged on anti-arrhythmic therapy PLAN: > Monitor on telemetry > EKG pending Anemia; stable Resolved: L flank/hip hematoma and Left rectus abdominal hematoma - 11/04/20 CT a/p: complex enlargement and fluid collection within the left rect us abdominal muscle extending into the retroperitoneum and left pelvic musculatu re suggestive of active extravasation - 11/05/2020: Patient had episode of hematuria with drop in hemoglobin to 6.5. B ecame hypotensive following blood transfusion, repeat hemoglobin of 4.5, IR call ed, patient taken for embolization of inferior epigastric artery on 11/06/2020 - CT a/p 11/08/20 -stable slight improvement of left hemipelvis rectus hematoma, small to moderate simple abdominal and pelvic ascites, cirrhosis, small right pl eural effusion, mild body wall edema, no mention of retroperitoneal hemorrhage - Hgb 8.7 on admission and stable from 11/21 - Patient had been taking her warfarin - INR 4.1 on admission - Iron deficiency present on labs on admission - Patient denies hematemesis, melena, hematochezia, worsening hematoma. PLAN: > Hold Warfarin today with INR 4.1 today; Warfarin per pharamcy >Continue INR and CBC checks daily > Iron infusion Cirrhosis Hx of colonic AVMs - Follows with Dr. Marti - Patient reports no history of esophageal varices - MELD-Na score: 17 at 11/15/2020 6:10 AM MELD score: 13 at 11/15/2020 6:10 AM Calculated from: Serum Creatinine: 1.07 MG/DL at 11/15/2020 6:10 AM Serum Sodium: 132 MMOL/L at 11/15/2020 6:10 AM Total Bilirubin: 0.9 MG/DL (Using min of 1 MG/DL) at 11/15/2020 6:10 AM INR(ratio): 1.6 at 11/15/2020 6:10 AM Age: 60 years PLAN: > Daily MELD labs > Continue PPI daily Remote hx of lymphoma - s/p chemotherapy in 2004 Anxiety/Depression - PROJECT GEOPHYSICIST zoloft continue - try atarax prn for anxiety Fluids: No IVF Electrolytes: Replace Lytes PRN Nutrition: Cardiac Diet DVT PPx: SCDs, warfarin Lines/Drains: PIV Code Status: FULL CODE [facility] Available via [employer] __ Primary Care Physician: Garfield Gray Chief Complaint: Weight gain; heart failure History of Present Illness: Ms. Paulson is a 60yo F with a PMH of cirrhosis from unclear etiology, non-ischem ic cardiomyopathy, chronic heart failure with preserved ejection fraction, mecha nical aortic valve on warfarin, paroxysmal atrial fibrillation, remote hx of lym phoma and left rectus abdominal muscle hematoma who presented to cardiology clin ic today with weight gain. Patient has noticed weight gain since discharge. She also has had swelling feet/ legs and abdominal distension. She has had some sob; not worse with lying flat. She has been compliant with medications at home. She has been urinating well at home. She has been compliant with low salt diet and fluid restriction. She denies any blood in stool, hematuria or flank pain. Bruising has resolved. Patient very emotional about being in hospital. She feels anxious. Patient last BM was today. Pt denies chest pain, SOB, abdominal pain, N/V/D/C, u rinary frequency or dysuria, headache, dizziness, numbness/tingling. Medical History: Diagnosis Date Cancer (HCC) Non- hodgkins lymphoma, chemo Disorder of thyroid gland Hypertension Iron deficiency anemia 08/03/2020 Iron deficiency anemia 08/03/2020 Surgical History: Procedure Laterality Date AORTIC VALVE REPLACEMENT 05/2009 mechanical ESOPHAGOGASTRODUODENOSCOPY WITH BIOPSY - FLEXIBLE N/A 06/06/2020 Performed by Bao Hernández MD at [facility] ENDO COLONOSCOPY DIAGNOSTIC WITH SPECIMEN COLLECTION BY BRUSHING/ WASHING - FLEXI BLE N/A 06/06/2020 Performed by Bao Hernández MD at [facility] ENDO ANGIOGRAPHY CORONARY ARTERY WITH RIGHT AND LEFT HEART CATHETERIZATION N/A Performed by Higinio Clarke MD at [facility] PREVENTION COORDINATOR POSSIBLE PERCUTANEOUS CORONARY STENT PLACEMENT WITH ANGIOPLASTY N/A Performed by Higinio Clarke MD at [facility] PREVENTION COORDINATOR ESOPHAGOGASTRODUODENOSCOPY WITH SPECIMEN COLLECTION BY BRUSHING/ WASHING N/A 10/21/2020 Performed by Cosmo Gomez MD at [facility] ENDO SIGMOIDOSCOPY WITH CONTROL OF BLEEDING - FLEXIBLE N/A 10/21/2020 Performed by Cosmo Gomez MD at [facility] ENDO SIGMOIDOSCOPY WITH DIRECTED SUBMUCOSAL INJECTION - FLEXIBLE 10/21/2020 Performed by Cosmo Gomez MD at [facility] ENDO Family History Problem Relation Age of Onset COPD Mother Social History Socioeconomic History Marital status: Life Partner Spouse name: Not on file Number of children: 3 Years of education: Not on file Highest education level: Not on file Occupational History Not on file Tobacco Use Smoking status: Never Smoker Smokeless tobacco: Never Used Vaping Use Vaping Use: Never used Substance and Sexual Activity Alcohol use: Not Currently Drug use: Never Sexual activity: Not Currently Other Topics Concern Not on file Social History Narrative Not on file Social Determinants of Health Financial Resource Strain: Difficulty of Paying Living Expenses: Food Insecurity: Worried About Running Out of Food in the Last Year: Ran Out of Food in the Last Year: Transportation Needs: Lack of Transportation (Medical): Lack of Transportation (Non-Medical): Physical Activity: Days of Exercise per Week: Minutes of Exercise per Session: Stress: Feeling of Stress : Social Connections: Frequency of Communication with Friends and Family: Frequency of Social Gatherings with Friends and Family: Attends Rastafari Services: Active Member of Clubs or Organizations: Attends Club or Organization Meetings: Marital Status: Intimate Partner Violence: Fear of Current or Ex-Partner: Emotionally Abused: Physically Abused: Sexually Abused: Vaping/E-liquid Use Vaping Use Never User Vaping/E-liquid Substances CBD No Nicotine No Other No Flavored No THC No Unknown No Immunizations (includes history and patient reported): Immunization History Administered Date(s) Administered Flu Vaccine Quadrivalent Recombinant =>18 YO PF 05/25/2019 Pneumococcal Vaccine (23-[place] Adult) 03/05/2018 Pneumococcal Vaccine(13-[place] Peds/immunocompromised adult) 11/21/2017 Allergies: Patient has no known allergies. Medications: Medications Prior to Admission Medication Sig ascorbic acid (VITAMIN C) 500 mg tablet [...] tablet Take one tablet by mouth daily. Review of Systems: CONSTITUTIONAL: Pt denies weight loss, fever, chills, or fatigue. HEENT: Pt denies visual loss, blurred vision, hearing changes, or congestion. SKIN: Pt denies rash or new lesions. CARDIOVASCULAR: Pt denies chest pain, chest pressure, palpitations or edema. RESPIRATORY: Pt positive for mild shortness of breath. Denies cough. GASTROINTESTINAL: Pt denies nausea, vomiting, diarrhea, constipation, or abdomi nal pain. GENITOURINARY: Pt denies burning with urination or polyuria. NEUROLOGICAL: Pt denies headache, dizziness, numbness or tingling in the extrem ities. MUSCULOSKELETAL: Pt denies muscle pain, back pain, or joint pain. HEMATOLOGIC: Pt denies bleeding or bruising. PSYCHIATRIC: Pt positive for depression or anxiety. Physical Exam: Vital Signs: Last Filed In 24 Hours Vital Signs: 24 Hour Range BP: 113/71 (11/29 1453) Temp: 36.9 C (98.4 F) (11/29 1453) Pulse: 120 (11/29 1453) Respirations: 22 PER MINUTE (11/29 1453) SpO2: 99 % (11/29 1453) Height: 157.5 cm (62") (11/29 1453) BP: (102-113)/(66-71) Temp: [36.9 C (98.4 F)] Pulse: [89-120] Respirations: [22 PER MINUTE] SpO2: [98 %-99 %] GENERAL: NAD, resting in bed, alert, oriented, and awake HEENT: Clear conjunctiva, PERRLA, EOMI, JVD present to ear, HJR present NECK: supple RESPIRATORY: crackles in bases, no respiratory distress CV: tachycardic, irregular rythm ABDOMEN: soft, active bowel sounds present, moderatly-distended, no rebound or g uarding, NTTP EXTREMITIES: BLE 3+ pitting edema : n/a SKIN: no rashes or lesions NEUROLOGIC: normal movement, normal sensation, CN2-12 intact PSYCHIATRIC: cooperative, positive for depressed mood or anxiety Lab/Radiology/Other Diagnostic Tests: 24-hour labs: No results found for this visit on 11/29/20 (from the past 24 miguel r(s)). Pertinent radiology reviewed. Berna Walton MD documented in this encounter Consult Notes * Latesha Beltrán APRN-COMPANY CONTROLLER - 12/02/2020 9:09 AM CDT Associated Order(s): CONSULT INTERVENTIONAL RADIOLOGY PHYSICIAN Interventional Radiology Consult Note with Pre-procedural History and Physical Admission Date: 11/29/2020 LOS: 3 days Principal Problem: Acute on chronic heart failure (HCC) Active Problems: Chronic heart failure with preserved ejection fraction (HCC) Severe tricuspid regurgitation Hx of mechanical aortic valve replacement Chronic anticoagulation Iron deficiency anemia Cirrhosis (HCC) Paroxysmal atrial fibrillation (HCC) Stage 3b chronic kidney disease (HCC) RVF (right ventricular failure) (HCC) Hyponatremia Reason for consult: Ascites. Evaluate for paracentesis. Assessment: - Admitted with acute on chronic heart failure with pmh significant for cirrhosi s of liver - Ascites present on review of imaging - A/O, NAD, endorses complaints of abdominal distension - Labs, medications, and allergies meet procedural protocol. Platelet Count Date Value Ref Range Status 12/02/2020 347 150 - 400 K/UL Final ; INR Home Date Value Ref Range Status 11/02/2020 2.4 Final INR Date Value Ref Range Status 12/02/2020 2.8 (H) 0.8 - 1.2 Final Plan: - Will proceed with paracentesis. - Does not need to be kept NPO for this procedure, we use a local anesthetic onl y. Procedure: US guided paracentesis IR Pre Procedure Notes: Consent obtained Chief Complaint: Ascites Previous Anesthetic/Sedation History: N/A-local anesthetic Code Status: Full Code History of present illness: Zaria Paulson is a 60 y.o. female patient with hx of cirrhosis. IR consulted for image-guided paracentesis. See ROS below for current symptoms Review of Systems Constitutional: negative for fevers and chills Respiratory: negative for cough or sputum Gastrointestinal: positive for abdominal distention Medications Scheduled Meds:[MAR Hold] digoxin (LANOXIN) tablet 125 mcg, 125 mcg, Oral, QDAY [MAR Hold] fluticasone propionate (FLONASE) nasal spray 1 spray, 1 spray, Each N ostril, QDAY [MAR Hold] levothyroxine (SYNTHROID) tablet 75 mcg, 75 mcg, Oral, QDAY 30 min be fore breakfast [May] oxybutynin chloride (DITROPAN) tablet 5 mg, 5 mg, Oral, TID [May] pantoprazole DR (PROTONIX) tablet 40 mg, 40 mg, Oral, QDAY() [MAY Hold] sertraline (ZOLOFT) tablet 100 mg, 100 mg, Oral, QDAY [May] spironolactone (ALDACTONE) tablet 100 mg, 100 mg, Oral, QDAY [May] warfarin (COUMADIN) tablet 1 mg, 1 mg, Oral, QHS Continuous Infusions: bumetanide (BUMEX) 12.5 mg in empty IV bag 50 mL IV drip (std conc) Stopped (12/02/20728) sodium chloride 0.9 % TKO infusion 10 mL/hr at 12/01/20 0824 PRN and Respiratory Meds:[May] acetaminophen Q6H PRN, [MAY Hold] diphenhydr AMINE HCL Q4H PRN, [MAY Hold] EPINEPHrine PF Q5 MIN PRN, [MAY Hold] hydrOXYzine TID PRN, [MAY Hold] hyoscyamine Q4H PRN, [MAY Hold] melatonin QHS PRN, [May ] prochlorperazine Q6H PRN, [MAY Hold] senna QDAY PRN, [MAY Hold] warfarin, phar lizbeth to manage Per Pharmacy Objective Vital Signs: Last Filed Vital Signs: 24 Miguel r Range BP: 113/63 (12/02 724) Temp: 36.7 C (98.1 F) (12/02 724) Pulse: 100 (12/02 724) Respirations: 18 PER MINUTE (12/02 724) SpO2: 95 % (12/02 724) BP: (101-113)/(56-64) Temp: [36.4 C (97.5 F)-37.1 C (98.8 F)] Pulse: [99-110] Respirations: [18 PER MINUTE-20 PER MINUTE] SpO2: [95 %-96 %] Vitals: 11/30/20 0519 12/01/20 0534 12/02/20 0543 Weight: 70.8 kg (156 lb) 69.3 kg (152 lb 12.8 oz) 68.1 kg (150 lb 3.2 oz) Intake/Output Summary: (Last 24 hours) Intake/Output Summary (Last 24 hours) at 12/02/2020 0910 Last data filed at 12/02/2020 0742 Gross per 24 hour Intake 1187 ml Output 3050 ml Net -1863 ml Stool Occurrence: 1 Physical Exam General appearance: alert and no distress Neurologic: Grossly normal, at baseline Lungs: Nonlabored with normal effort Abdomen: distended Extremities: extremities normal, atraumatic, no cyanosis or edema Anesthesia Classification: N/A-local anesthetic Pre procedure anxiolysis plan: Lidocaine Intra-procedural Sedation/Medication Plan: Lidocaine Discussion/Reviews: Physician has discussed risks and alternatives of this type of sedation and above planned procedures with patient NPO Status: N/A-local anesthestic Status: N/A-local anesthetic and U/S guided Lab/Radiology/Other Diagnostic Tests: Labs: 24-hour labs: Results for orders placed or performed during the hospital encounter of 11/29/20 (from the past 24 hour(s)) BASIC METABOLIC PANEL Collection Time: 12/01/20 12:47 PM Result Value Ref Range Sodium 132 (L) 137 - 147 MMOL/L Potassium 3.6 3.5 - 5.1 MMOL/L Chloride 95 (L) 98 - 110 MMOL/L CO2 26 21 - 30 MMOL/L Anion Gap 11 3 - 12 Glucose 106 (H) 70 - 100 MG/DL Blood Urea Nitrogen 16 7 - 25 MG/DL Creatinine 0.99 0.4 - 1.00 MG/DL Calcium 8.4 (L) 8.5 - 10.6 MG/DL eGFR Non 58 (L) >60 mL/min eGFR >60 >60 mL/min CBC AND DIFF Collection Time: 12/02/20 4:54 AM Result Value Ref Range White Blood Cells 8.0 4.5 - 11.0 K/UL RBC 2.80 (L) 4.0 - 5.0 M/UL Hemoglobin 8.6 (L) 12.0 - 15.0 GM/DL Hematocrit 25.4 (L) 36 - 45 % MCV 90.5 80 - 100 FL MCH 30.5 26 - 34 PG MCHC 33.7 32.0 - 36.0 G/DL RDW 18.0 (H) 11 - 15 % Platelet Count 347 150 - 400 K/UL MPV 6.3 (L) 7 - 11 FL Neutrophils 85 (H) 41 - 77 % Lymphocytes 4 (L) 24 - 44 % Monocytes 8 4 - 12 % Eosinophils 2 0 - 5 % Basophils 1 0 - 2 % Absolute Neutrophil Count 6.89 1.8 - 7.0 K/UL Absolute Lymph Count 0.30 (L) 1.0 - 4.8 K/UL Absolute Monocyte Count 0.61 0 - 0.80 K/UL Absolute Eosinophil Count 0.17 0 - 0.45 K/UL Absolute Basophil Count 0.08 0 - 0.20 K/UL COMPREHENSIVE METABOLIC PANEL Collection Time: 12/02/20 4:54 AM Result Value Ref Range Sodium 134 (L) 137 - 147 MMOL/L Potassium 3.4 (L) 3.5 - 5.1 MMOL/L Chloride 97 (L) 98 - 110 MMOL/L Glucose 89 70 - 100 MG/DL Blood Urea Nitrogen 15 7 - 25 MG/DL Creatinine 0.99 0.4 - 1.00 MG/DL Calcium 8.3 (L) 8.5 - 10.6 MG/DL Total Protein 6.0 6.0 - 8.0 G/DL Total Bilirubin 0.7 0.3 - 1.2 MG/DL Albumin 2.9 (L) 3.5 - 5.0 G/DL Alk Phosphatase 106 25 - 110 U/L AST (SGOT) 21 7 - 40 U/L CO2 28 21 - 30 MMOL/L ALT (SGPT) 9 7 - 56 U/L Anion Gap 9 3 - 12 eGFR Non 58 (L) >60 mL/min eGFR >60 >60 mL/min PROTIME INR (PT) Collection Time: 12/02/20 4:54 AM Result Value Ref Range INR 2.8 (H) 0.8 - 1.2 DIGOXIN LEVEL Collection Time: 12/02/20 4:54 AM Result Value Ref Range Digoxin 1.3 (H) 0.5 - 1.0 NG/ML Radiology: Reviewed. We appreciate being able to participate in this patient's care. Please page with any questions or concerns. Latesha Beltrán APRN-TWYLA Pgr [phone] IR Team Pager [phone] (After-hours and Weekends) * Gino Pandya, DONOR RELATIONS OFFICER-COMPANY CONTROLLER - 12/01/2020 12:22 PM CDT Associated Order(s): CONSULT ADULT PALLIATIVE CARE PROVIDER PALLIATIVE CARE INPATIENT NOTE Name: Zaria Paulson : 1960 Age: 60 y.o. Admission Date: 11/29/2020 LOS: 2 days ASSESSMENT Zaria Paulson is a 60 y.o. female with chronic heart failure preserved EF, no nischemic cardiomyopathy, severe tricuspid regurgitation, significant RV failure , history of mechanical aortic valve replacement, cirrhosis of unclear etiology (at least a component of HF related complication), paroxysmal atrial fibrillatio n, hypertension, iron deficiency anemia, chronic kidney disease, history of non- Hodgkin lymphoma s/p chemo. Pt was admitted from cardiology clinic 11/29 due to ac utely decompensated HF. During admission, HF has discussed concern for limited p rognosis with patient given limited mngt options for RV dysfunction and tricuspi d valve issues in setting of concomitant cirrhosis--discussion of prognosis poss ibly 1 year. Palliative Care consultation has been requested for goals of care w ith plan for continued cooperative following with HF in clinic. Advance Care Planning: Code Status: Full Code Identified Health Care Decision Maker: Blair Chambers (son); medical DPOA on file Potential Disposition: Home with prior home health--[facility] ([facility]) PLAN #Acute on chronic HFpEF #Severe TR #Severe RV dysfunction #Cirrhosis #Ascites #Goals of care Discussion: Met in room with patient. Provided an overview of palliative care services. Patient tells me that she heard from Dr. Lamb his concern that her prognosis is likely within some months to 1 year given her very sick heart and sick liver, n either of which are able to be fixed with procedures/interventions/surgery. Debra ent discussed that she has been periodically tearful throughout the day hearing this information, however conveys acceptance of this reality. She continues to b e holding onto hope to be able to live much longer, also appreciating the honest y of what time may be so that she can be preparing herself and family. She is pl anning to wait to communicate she is learned about her prognosis to her family a fter she returns home. Regarding patient's current priorities/goals and how she wants to be approaching her care; reviewed idea of doing things for vs to patient. Patient has already been giving this some thought. At this time, she desires to remain full code. Sh key has already named her sons as medical DPOAs and feels confident they know what she would/would not want if complications in the future. She remains interested in testing, procedures, interventions that may be helpful to relieve symptoms and give her more time--specifically mentioning possible pa racentesis, potential option of infusion clinic for diuresis. Patient mentions her mother was on hospice--she describes this as a good experie nce. Provided counseling regarding hospice care. Pt indicates she would likely e ventually want hospice care for herself as she would prefer to at home. Toribio minal, this doesn't fit her current goals as she remains interested in hospitaliza tion, close clinic following with specialists, etc. She had [facility] recentl y and is interested to use them again at [place] for safety net planning. She is awar e this team also has hospice as option for her in the future and she would consi danielle using them. SUMMARY/RECOMMENDATIONS: Pt understandably sad, but accepting of prognosis discussion today with Dr. Lamb, anticipating some months to 1 year. She remains hopeful for more time. Of note, pt plans to communicate her prognosis to her and sons herse lf after getting back home. Pt desires to remain full code at this time; has named sons as DPOAs (on chanel e). She is open to testing/interventions/procedures, etc that may be helpful to relieve symptoms and help her live longer, such as paracentesis, infusion clinic for diuresis if an option, etc. Pt open to continued GOC discussions as condition progresses, keeping in min d idea of doing things for vs to patient. D/w HF after visit--re: ascites and fluid retention--planning for paracentes is. Will need to see if ongoing issues with accumulation. Will be ideal if pt ca n tolerate max [place] dosing with continued med adjustments; mngt per HF. Per Hep atology note 09/21/20, possible concomitant chronic liver disease--could consider their engagement inpatient--pt has f/u with them in clinic 9/16 (particularly if admission would interfere with this visit). SUBJECTIVE CC/Reason for Visit: swelling in abdomen/goals of care History of Present Illness: Zaria Paulson is a 60 y.o. female with chronic heart failure preserved EF, no nischemic cardiomyopathy, severe tricuspid regurgitation, significant RV failure , history of mechanical aortic valve replacement, cirrhosis of unclear etiology (at least a component of HF related complication), paroxysmal atrial fibrillatio n, hypertension, iron deficiency anemia, chronic kidney disease, history of non- Hodgkin lymphoma s/p chemo. Pt was admitted from cardiology clinic 11/29 due to ac utely decompensated HF. During admission, HF has discussed concern for limited p rognosis with patient given limited mngt options for RV dysfunction and tricuspi d valve issues in setting of concomitant cirrhosis--discussion of prognosis poss ibly 1 year. Palliative Care consultation has been requested for goals of care w ith plan for continued cooperative following with HF in clinic. Patient tells me that her primary symptom burden has been issues with continued fluid retention, more pronounced in her abdomen which sometimes will cause some shortness of breath during her recent admission. She was contacting the heart f ailure clinic regularly and her medications were adjusted. However, she general ly had poor response. She is feeling a bit better gradually this admission with continued aggressive diuresis, however continues to note quite a bit of swelling in her abdomen persisting. Medical History: Diagnosis Date Cancer (HCC) Non- hodgkins lymphoma, chemo Disorder of thyroid gland Hypertension Iron deficiency anemia 08/03/2020 Iron deficiency anemia 08/03/2020 Surgical History: Procedure Laterality Date AORTIC VALVE REPLACEMENT 05/2009 mechanical ESOPHAGOGASTRODUODENOSCOPY WITH BIOPSY - FLEXIBLE N/A 06/06/2020 Performed by Bao Hernández MD at [facility] ENDO COLONOSCOPY DIAGNOSTIC WITH SPECIMEN COLLECTION BY BRUSHING/ WASHING - FLEXI BLE N/A 06/06/2020 Performed by Bao Hernández MD at [facility] ENDO ANGIOGRAPHY CORONARY ARTERY WITH RIGHT AND LEFT HEART CATHETERIZATION N/A Performed by Higinio Clarke MD at [facility] PREVENTION COORDINATOR POSSIBLE PERCUTANEOUS CORONARY STENT PLACEMENT WITH ANGIOPLASTY N/A Performed by Higinio Clarke MD at [facility] PREVENTION COORDINATOR ESOPHAGOGASTRODUODENOSCOPY WITH SPECIMEN COLLECTION BY BRUSHING/ WASHING N/A 10/21/2020 Performed by Cosmo Gomez MD at [facility] ENDO SIGMOIDOSCOPY WITH CONTROL OF BLEEDING - FLEXIBLE N/A 10/21/2020 Performed by Cosmo Gomez MD at [facility] ENDO SIGMOIDOSCOPY WITH DIRECTED SUBMUCOSAL INJECTION - FLEXIBLE 10/21/2020 Performed by Cosmo Gomez MD at [facility] ENDO Social History Tobacco Use Smoking status: Never Smoker Smokeless tobacco: Never Used Vaping Use Vaping Use: Never used Substance Use Topics Alcohol use: Not Currently Drug use: Never Social History Social History Narrative Not on file Occupation: disability Marital status: Children: 2 sons Spiritual Screen: Deferred at this time Family History: Family History Problem Relation Age of Onset COPD Mother Family Status Relation Name Status Mother Father Alive Mother due to COPD and other "major organ problems" with home hospice servi gayatri. ROS: A 14 point review of systems was negative except for: Constitutional: positive f or fatigue Cardiovascular: positive for dyspnea, fatigue Gastrointestinal: positive for abdominal fullness OBJECTIVE Blood pressure 109/64, pulse 110, temperature 36.6 C (97.9 F), height 1.575 m (5' 2"), weight 69.3 kg (152 lb 12.8 oz), SpO2 95 %. Physical Exam Constitutional: Adult female; no obvious acute distress. Eyes: Sclera non-icteric, conjunctiva clear. ENMT: Lips, mucosa, and tongue moist. Neck: Supple. Trachea midline. Respiratory: Clear to ausculation throughout. Non-labored breathing pattern at r est or with conversation. CV: RRR. No murmur. No peripheral edema. Gastrointestinal: Abdomen with at least moderate ascites, non-tender. BS +. Musculoskeletal: Strength moderate in BUE and BLE. No clubbing or cyanosis of di gits. Skin: Warm, dry, no rash/lesions. Neurologic: Alert and oriented to person, place, time, and situation. Psych: Calm, engaged, appropriate judgement and insight. Current PPS%: 60% Lab Results: CBC Lab Results Component Value Date/Time WBC 6.3 12/01/2020 06:04 AM HGB 8.8 (L) 12/01/2020 06:04 AM PLTCT 365 12/01/2020 06:04 AM Lab Results Component Value Date/Time NEUT 82 (H) 12/01/2020 06:04 AM ANC 5.14 12/01/2020 06:04 AM Chemistries Lab Results Component Value Date/Time NA 133 (L) 12/01/2020 06:04 AM K 2.9 (L) 12/01/2020 06:04 AM BUN 17 12/01/2020 06:04 AM CR 1.00 12/01/2020 06:04 AM GLU 87 12/01/2020 06:04 AM GLU 143 (H) 07/28/2020 09:45 AM Lab Results Component Value Date/Time CA 8.4 (L) 12/01/2020 06:04 AM PO4 2.7 11/29/2020 10:40 AM ALBUMIN 2.9 (L) 12/01/2020 06:04 AM TOTPROT 6.0 12/01/2020 06:04 AM ALKPHOS 107 12/01/2020 06:04 AM AST 23 12/01/2020 06:04 AM ALT 9 12/01/2020 06:04 AM TOTBILI 0.7 12/01/2020 06:04 AM GFR 57 (L) 12/01/2020 06:04 AM GFRAA >60 12/01/2020 06:04 AM Other Pertinent Diagnostic Results: 11/29/20 CXR results reviewed: IMPRESSION 1. Stable mild cardiomegaly and indistinct pulmonary vasculature suggesting pulmonary edema. 2. Moderate right and trace left pleural effusions with bibasilar atelectasis. 11/30/20 ECHO results reviewed: Interpretation Summary 1. Normal left ventricular cavity size with moderate concentric hypertrophy 2. Normal ejection fraction estimated at 55% 3. Severely dilated right ventricle with reduced function 4. Severe biatrial dilatation 5. Markedly elevated central venous pressure 6. Moderate mitral annular calcification with mild mitral regurgitation 7. Severe tricuspid regurgitation 8. Mechanical aortic valve with a mean gradient of 11 mmHg and peak velocity of 2.5 m/s 9. No pericardial effusion. Left pleural effusion. 10. Estimated peak systolic PA pressure 76 mmHg. Compared to prior echocardiogram performed on 10/21/2020, findings are similar. EF was 60%. Mechanical aortic valve mean gradient was 14 mmHg with a peak veloc ity of 2.6 m/s. There was severe tricuspid regurgitation noted. Peak systolic PA pressure was 79 mmHg. I have collaborated with Dr. Susan Marti in the development of patient plan of ca re, they concur with the content of this note as written see cosignature below Gino Pandya APRN, TWYLA-C Palliative [facility] [employer], [employer] * Kandy Basiliadeep Russell APRN-COMPANY CONTROLLER - 11/30/2020 11:49 AM CDT Associated Order(s): CONSULT HEART FAILURE PHYSICIAN Heart Failure Consult NAME:Zaria Paulson :1960 AGE: 60 y.o. ADMISSION DATE: 11/29/2020 DAYS ADMITTED: LOS: 1 day Principal Problem: Acute on chronic heart failure (HCC) Active Problems: Chronic heart failure with preserved ejection fraction (HCC) Severe tricuspid regurgitation Hx of mechanical aortic valve replacement Chronic anticoagulation Iron deficiency anemia Cirrhosis (HCC) Paroxysmal atrial fibrillation (HCC) Stage 3b chronic kidney disease (HCC) RVF (right ventricular failure) (HCC) Hyponatremia Zaria Paulson is a 60 y.o. female with chronic heart failure with preserved e jection fraction, nonischemic cardiomyopathy,s/paortic valve replacement x3 (on chronic anticoagulation for mechanical valve),tricuspid valve regurgitatio n,paroxysmal atrial fibrillation, hypertension, previous endocarditis,iron d eficiency anemia -received IV iron, chronic kidney disease,hypothyroidism, dep ression, non-Hodgkins lymphoma and cirrhosis (etiology secondary to chemothera py from treatment with non-Hodgkin lymphoma). Patient recently admitted to [facility] 14 days 11/15/2020 wit h GI bleed and nontraumatic rectus hematoma and was previously hospitalized [facility] [place] for GI bleed in setting of cirrhosis. During most recent hospit alization she underwent mesenteric angiogram and coil embolization of left infer ior epigastric artery. She received a total of 3 units PRBCs. She was resumed on warfarin for her mechanical valve prior to discharge. She had ongoing hematu alysha along with urinary retention and plans for outpatient follow-up with urology including CT urogram and cystoscopy. 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 She has contacted [facility] on several occasi ons since most recent hospital discharge reporting weight gain as well as seen o n 2 separate occasions. First on 11/21 in a post hospital visit when she was giv en IV Bumex and restarted on spironolactone. Bumex has been incrementally incre ased, currently at 4 mg twice daily. She was seen again on 11/29 in follow-up whe re she continued to be significantly hypervolemic and hospital admission was rec ommended. She was admitted to Recommendations: Today: 1. Continue Bumex drip 0.5 mg/h as pt had good response overnight. 2. Echocardiogram completed 11/30/2020: LV normal size, moderate concentric hypert rophy, LVEF 55%, unable to assess diastolic function. RV severely dilated, RV s ystolic function severely reduced. IVS 1.40 cm. Severe biatrial dilatation. CV P 10-20 mmHg. Moderate mitral annular calcification with mild MVR. Severe TVR. Mechanical aortic valve with mean gradient 11 mmHg and peak velocity 2.5 m/s. PASP 76 mmHg. 3. Increase spironolactone to 50 mg daily (ordered). Goal is to get dose to 100 mg daily. 4. Discontinue metoprolol tart in setting of severe RV failure (dc'd). Start dig oxin HR control and RV support. 500 mcg loading today and then 125 mcg daily sta rting tomorrow, 12/01. (ordered) Dig level ordered for 11 AM. 5. May need to consider outpatient referral to valve team for torrential TR. 6. Recommend resume warfarin when INR <3.0. Goal 2.0-3.0 given recent GI bleed (not usual 2.5-3.5 for mechnical valve.) Ongoin. BMP twice a day. Magnesium level daily. Keep Potassium greater than 4.0 and Magnesium greater than 2.0. 2. 2000mg sodium dietary restriction. 3. Fluid Restriction:1.5 4. Strict I/O. Goal output: net neg 2 and 3L/24 hour 5. Daily standing scale weight. Goal Dry Weight: 140 lbs Primary team responsible for placing [facility] Appointment Request order set for "Cardiology: Heart Failure" appointment request within 24- 48 hours of discharge. (Please do not place order any earlier in effort to reduc e possible need for cancellation and rescheduling of visit). Pt examined and discussed with Dr. Lamb. Basilia Sequeira, DONOR RELATIONS OFFICER-COMPANY CONTROLLER [phone] Assessment: Acute on chronic combined RV systolic and diastolic HFpEF, EF: 60%. RV failure Echocardiogram completed 11/30/2020: LV normal size, moderate concentric hypertrop hy, LVEF 55%, unable to assess diastolic function. RV severely dilated, RV syst olic function severely reduced. IVS 1.40 cm. Severe biatrial dilatation. CVP 1 0-20 mmHg. Moderate mitral annular calcification with mild MVR. Severe TVR. M echanical aortic valve with mean gradient 11 mmHg and peak velocity 2.5 m/s. PA SP 76 mmHg. L/RHC 06/08/2020: RA 20, RV 44/14, PA P 49/24 with mean 32, PCWP 25 mmHg. TPG 7 mmHg, PVR 1.3 Wood units. CO/CI by TD 5.33/3.18, by Yg 9.24/5.5. No signific ant coronary stenosis. -Previously scheduled for [facility] on 10/20 but was hospitalized at the time, a nd now not a good candidate due to recent bleeding. Major Complications or Comorbidities (ALF): acute/ acute on chronic systolic and /or diastolic heart failure NYHA functional class IV (unable to carry on any physical activity without sympt oms of HF, or symptoms of HF at rest), ACC Stage C (structural heart disease with prior or current symptoms of HF). She presents with signs of hypervolemia with right ventricular failure without signs of low flow state. Admission BNP: 396 Admission Weight: 72.4 kg (159 lb 9.6 oz) Most recent weights (inpatient): Vitals: 11/29/20 1454 11/30/20 0519 Weight: 72.4 kg (159 lb 9.6 oz) 70.8 kg (156 lb) I/O: net I/O for entire hospital stay: 1.9 L, net for last 24 hrs -1.9 L Diuretic Therapy Prior to admission dose Bumex 4 mg twice daily since 11/23 Given on admission 11/29: Bumex 5 mg IV x1, metolazone 2.5 mg p.o. x1 Daily Dosing 11/30: Bumex gtt 0.5 mg/h GDMT PROJECT GEOPHYSICIST Changes BB metoprolol tartrate d/c'd in early October d/t RV failure 11/29: primary team resumed metoprolol tartrate 12.5 mg twice daily 11/30: discontinue in setting of severe RV dysfunction. Loaded w/ digoxin 500 mcg then 125 mcg daily. ACEI/ARB/ARNI No Ejection Fraction >= 40% Aldosterone Antagonist spironolactone 25 mg daily Hydralazine/Nitrate No (EF>40) Ivabradine No; Not treated with maximally tolerated dose beta blockers or beta b lockers contraindicated HRMT No (EF>35%) Anticoagulation for Afib/flutter Warfarin 11/29: INR 4.1, warfarin held 11/30: INR 3.3 > 11/30: start digoxin 500 mcg x 1, the 125 mcg daily starting 12/01 Testing/Procedures 11/30 echocardiogramsee above Atrial Fibrillation (Paroxysmal)/ Atrial Tachycardia/ s/p AorticValveReplacement: Initial surgery in 1975 at age [age] years old, second sternotomy 1997 when biopros thetic aortic valve was replaced, third sternotomy in 2010 with mechanical valve replacement - see echo above -She is onwarfarinoral anticoagulation. Goal INR 2.03.0. (Goal had been lowered to 1.62.0 with recent hospitalization but Dr. Starr have readjusted to 2.03.0). Her anticoagulation is managed by Dr. Starr. > INR daily- see table above > 11/30: digoxin 500 mcg x 1 then 125 mcg daily. Dig level ordered for 911 AM. SevereTricuspidRegurgitation: Pulmonary hypertension - Follows with Dr. Rosales -Her echo on 10/21/2020 showed severe tricuspid regurgitation, PA pressure 79 mmH g. >Plan is to continue to monitor with hopes that reducing her volume overload will improve her tricuspid regurgitation. >May need to consider outpatient referral to valve team for torrential TR Chronic Kidney Disease - StageIII: Chronic hyponatremia -creatinine on admission 11/29 1.03>0.98 today (11/30) -Sodium on admission 133> 132 today (11/30) > Monitor twice daily while on Bumex drip Hypoalbuminemia Albumin 2.9 on 11/30 > Encourage protein intake Liver cirrhosis She follows with hepatology. [place] to be secondary to chemotherapy, has had prev ious liver biopsy. > Continue spironolactone and Bumex as above Anemia Iron deficiency Recent GI bleeding in [...] range for mechanical valve 2.03.[address] Starr. -She denies any signs or symptoms of bleeding Hemoglobin 8.7 on admission 11/29>8.6 today (11/30) Iron panel 11/29: Total iron 23, 7% saturation, TIBC 331, ferritin 112 > Continue to monitor closely > IV iron per primary team () Hematuria Urinary retention Seen by urology during recent hospitalization with plan for outpatient CT urogra m and cystoscopy. > Follow-up appointment on 12/22/[address] urogram and cystoscopy Non-Hodgkin's lymphoma diagnosed in 2004 underwent chemotherapy follows with hematology. Reason for Consultation: Evaluation and recommendations re: heart failure History of Present Illness: Zaria Paulson is a 60 y.o. female who we are aske d to see for evaluation of heart failure. She currently complains of fatigue, s hortness of breath, dyspnea on exertion, abdominal fullness, peripheral edema an d weight change. She is feeling better today. Her orthopnea and appetite are imp roved. She currently denies lightheadedness, near syncope, palpitations, chest pain and muscle cramping. Review of Systems: A comprehensive review of systems was negative except for: as noted above Medical History: Diagnosis Date Cancer (HCC) Non- hodgkins lymphoma, chemo Disorder of thyroid gland Hypertension Iron deficiency anemia 08/03/2020 Iron deficiency anemia 08/03/2020 Surgical History: Procedure Laterality Date AORTIC VALVE REPLACEMENT 05/2009 mechanical ESOPHAGOGASTRODUODENOSCOPY WITH BIOPSY - FLEXIBLE N/A 06/06/2020 Performed by Bao Hernández MD at [facility] ENDO COLONOSCOPY DIAGNOSTIC WITH SPECIMEN COLLECTION BY BRUSHING/ WASHING - FLEXI BLE N/A 06/06/2020 Performed by Bao Hernández MD at [facility] ENDO ANGIOGRAPHY CORONARY ARTERY WITH RIGHT AND LEFT HEART CATHETERIZATION N/A Performed by Higinio Clarke MD at [facility] PREVENTION COORDINATOR POSSIBLE PERCUTANEOUS CORONARY STENT PLACEMENT WITH ANGIOPLASTY N/A Performed by Higinio Clarke MD at [facility] PREVENTION COORDINATOR ESOPHAGOGASTRODUODENOSCOPY WITH SPECIMEN COLLECTION BY BRUSHING/ WASHING N/A 10/21/2020 Performed by Cosmo Gomez MD at [facility] ENDO SIGMOIDOSCOPY WITH CONTROL OF BLEEDING - FLEXIBLE N/A 10/21/2020 Performed by Cosmo Gomez MD at [facility] ENDO SIGMOIDOSCOPY WITH DIRECTED SUBMUCOSAL INJECTION - FLEXIBLE 10/21/2020 Performed by Cosmo Gomez MD at [facility] ENDO Family History Problem Relation Age of Onset COPD Mother Social History Socioeconomic History Marital status: Life Partner Spouse name: Not on file Number of children: 3 Years of education: Not on file Highest education level: Not on file Occupational History Not on file Tobacco Use Smoking status: Never Smoker Smokeless tobacco: Never Used Vaping Use Vaping Use: Never used Substance and Sexual Activity Alcohol use: Not Currently Drug use: Never Sexual activity: Not Currently Other Topics Concern Not on file Social History Narrative Not on file Objective: Allergies: No Known Allergies Medications: Scheduled Meds:fluticasone propionate (FLONASE) nasal spray 1 spray, 1 spray, Ea ch Nostril, QDAY iron sucrose (VENOFER) 300 mg in sodium chloride 0.9% (NS) IVPB, 300 mg, Intrave nous, QDAY levothyroxine (SYNTHROID) tablet 75 mcg, 75 mcg, Oral, QDAY 30 min before breakf ast metoprolol tartrate tablet 12.5 mg, 12.5 mg, Oral, BID oxybutynin chloride (DITROPAN) tablet 5 mg, 5 mg, Oral, TID pantoprazole DR (PROTONIX) tablet 40 mg, 40 mg, Oral, QDAY(21) sertraline (ZOLOFT) tablet 100 mg, 100 mg, Oral, QDAY spironolactone (ALDACTONE) tablet 25 mg, 25 mg, Oral, ONCE [START ON 12/01/2020] spironolactone (ALDACTONE) tablet 50 mg, 50 mg, Oral, QDAY Continuous Infusions: bumetanide (BUMEX) 12.5 mg in empty IV bag 50 mL IV drip (std conc) 0.5 mg/h r (11/30/20 0556) PRN and Respiratory Meds:acetaminophen Q6H PRN, diphenhydrAMINE HCL Q4H PRN, EPI NEPHrine PF Q5 MIN PRN, hydrOXYzine TID PRN, hyoscyamine Q4H PRN, melatonin QHS PRN, prochlorperazine Q6H PRN, senna QDAY PRN, warfarin, pharmacy to manage Per Pharmacy Medications Prior to Admission Medication Sig Dispense Refill Last Dose ascorbic acid (VITAMIN C) 500 mg tablet Take 500 mg by mouth daily. bumetanide (BUMEX) 1 mg tablet Take four tablets by mouth twice daily. 120 t ablet 1 calcium carbonate (OS-KRUPA) 1250 mg tablet Take [...] under tongue every 4 hours as needed. 180 tablet 0 levothyroxine (SYNTHROID) 75 mcg tablet Take 75 mcg by mouth daily 30 minute s before breakfast. omeprazole DR (PRILOSEC) 40 mg capsule Take 40 mg by mouth twice daily. oxybutynin chloride (DITROPAN) 5 mg tablet Take one tablet by mouth three ti mes daily. 180 tablet 0 potassium chloride SR (K-DUR) 20 mEq tablet Take 20 mEq by mouth twice daily . Take with a meal and a full glass of water. sertraline (ZOLOFT) 100 mg tablet Take 100 mg by mouth daily. spironolactone (ALDACTONE) 25 mg tablet Take one tablet by mouth daily. Take with food. 30 tablet 11 VASCEPA 1 gram capsule TAKE 2 CAPSULES BY MOUTH TWICE DAILY WITH MEALS warfarin (COUMADIN) 1 mg tablet Take four tablets by mouth daily to equal 4m g dose. 120 tablet 0 warfarin (COUMADIN) 4 mg tablet Take one tablet by mouth daily. 90 tablet 1 Vital Signs: Last Filed Vital Signs: 24 Hour Range BP: 96/60 (11/30 1220) Temp: 36.6 C (97.8 F) (11/30 1220) Pulse: 98 (11/30 1220) Respirations: 18 PER MINUTE (11/30 1220) SpO2: 95 % (11/30 1220) Height: 157.5 cm (5' 2") (11/30 518) BP: (94-113)/(60-71) Temp: [36.3 C (97.3 F)-36.9 C (98.4 F)] Pulse: [92-120] Respirations: [18 PER MINUTE-22 PER MINUTE] SpO2: [92 %-99 %] Wt Readings from Last 10 Encounters: 11/30/20 70.8 kg (156 lb) 11/29/20 72 kg (158 lb 12.8 oz) 11/21/20 68.7 kg (151 lb 6.4 oz) 11/15/20 65.6 kg (144 lb 9.6 oz) 10/26/20 60.4 kg (133 lb 3.2 oz) 10/21/20 61.7 kg (136 lb 0.4 oz) 10/12/20 61.7 kg (136 lb) 09/07/20 61.2 kg (135 lb) 08/24/20 60.6 kg (133 lb 9.6 oz) 08/22/20 59.9 kg (132 lb) Physical Exam: General Appearance: no distress, overweight Skin: warm and dry Lips & Oral Mucosa: no pallor or cyanosis Digits and Nails: normal color, smooth symmetric nails and digits Eyes: conjunctivae and lids normal Neck Veins: JVP 14cm, HJR positivesevere TR on echo Auscultation: breathing comfortably, lungs diminished but clear to auscultation, bilateral lower lobe rales, no rhonchi, exp wheezing Cardiac Auscultation: Regular rhythm, S1, S2, no S3 or S4, 3-4/6 murmur Radial Arteries: normal symmetric radial pulses Pedal Pulses: pulses 2+, symmetric Lower Extremity Edema: 1-2+ bilat to knees, trace into thighs Abdominal Exam: Distended, firm, ascites present, slightly tender Gait & Station: Resting in bed Muscle Strength: normal strength and tone Orientation: clear historian, good insight Laboratory Review: CBC w/Diff Lab Results Component Value Date/Time WBC 6.2 11/30/2020 04:25 AM RBC 2.79 (L) 11/30/2020 04:25 AM HGB 8.6 (L) 11/30/2020 04:25 AM HCT 25.3 (L) 11/30/2020 04:25 AM MCV 90.9 11/30/2020 04:25 AM MCH 30.8 11/30/2020 04:25 AM MCHC 33.9 11/30/2020 04:25 AM RDW 18.1 (H) 11/30/2020 04:25 AM PLTCT 355 11/30/2020 04:25 AM MPV 6.5 (L) 11/30/2020 04:25 AM Lab Results Component Value Date/Time NEUT 82 (H) 11/30/2020 04:25 AM ANC 5.13 11/30/2020 04:25 AM LYMA 5 (L) 11/30/2020 04:25 AM ALC 0.28 (L) 11/30/2020 04:25 AM TINY 8 11/30/2020 04:25 AM AMC 0.51 11/30/2020 04:25 AM EOSA 4 11/30/2020 04:25 AM AEC 0.23 11/30/2020 04:25 AM BASA 1 11/30/2020 04:25 AM ABC 0.07 11/30/2020 04:25 AM Chemistry Lab Results Component Value Date/Time NA 132 (L) 11/30/2020 04:25 AM K 3.6 11/30/2020 04:25 AM CL 99 11/30/2020 04:25 AM CO2 25 11/30/2020 04:25 AM GAP 8 11/30/2020 04:25 AM BUN 15 11/30/2020 04:25 AM CR 0.98 11/30/2020 04:25 AM GLU 89 11/30/2020 04:25 AM GLU 143 (H) 07/28/2020 09:45 AM Lab Results Component Value Date/Time CA 8.2 (L) 11/30/2020 04:25 AM PO4 2.7 11/29/2020 10:40 AM ALBUMIN 2.9 (L) 11/30/2020 04:25 AM TOTPROT 5.9 (L) 11/30/2020 04:25 AM ALKPHOS 114 (H) 11/30/2020 04:25 AM AST 25 11/30/2020 04:25 AM ALT 11 11/30/2020 04:25 AM TOTBILI 0.7 11/30/2020 04:25 AM GFR 58 (L) 11/30/2020 04:25 AM GFRAA >60 11/30/2020 04:25 AM Renal Function Lab Results Component Value Date/Time NA 132 (L) 11/30/2020 04:25 AM K 3.6 11/30/2020 04:25 AM CL 99 11/30/2020 04:25 AM CO2 25 11/30/2020 04:25 AM GAP 8 11/30/2020 04:25 AM BUN 15 11/30/2020 04:25 AM BUN 17 11/29/2020 10:40 AM BUN 16 11/15/2020 06:10 AM Lab Results Component Value Date/Time CR 0.98 11/30/2020 04:25 AM CR 1.03 (H) 11/29/2020 10:40 AM CR 1.2 (H) 11/21/2020 08:32 AM CR 1.07 (H) 11/15/2020 06:10 AM GLU 89 11/30/2020 04:25 AM GLU 143 (H) 07/28/2020 09:45 AM CA 8.2 (L) 11/30/2020 04:25 AM PO4 2.7 11/29/2020 10:40 AM ALBUMIN 2.9 (L) 11/30/2020 04:25 AM Lipid Profile INR Lab Results Component Value Date CHOL 76 11/29/2020 TRIG 77 11/29/2020 HDL 25 (L) 11/29/2020 LDL 43 11/29/2020 VLDL 15 11/29/2020 NONHDLCHOL 51 11/29/2020 Lab Results Component Value Date INR 3.3 (H) 11/30/2020 INR 2.4 11/02/2020 Chest X-Ray: 11/29 1. Stable mild cardiomegaly and indistinct pulmonary vasculature suggesting pu lmonary edema. 2. Moderate right and trace left pleural effusions with bibasilar atelectasis. Tele/ECG: SR 90s-110s Echocardiogram Details: Echo Results (Last 3 results in the past 3 years) Echo EF LVIDD LA Size IVS LVPW Rest PAP (11/30/20) 55 (11/30/20) 4.10 (11/30/20) 5.80 (11/30/20) 1.40 (11/30/20) 1.40 (11/30/20) 76 (10/21/20) 60 (10/21/20) 4.46 (10/21/20) 5.96 (10/21/20) 1.21 (10/21/20) 1.16 (10/21/20) 79 (05/22/20) 60 (05/22/20) 4.31 (05/22/20) 6.56 (05/22/20) 1.21 (05/22/20) 1.30 (05/22/20) 64 Associated attestation - Ramo Lamb MD - 11/30/2020 2:18 PM CDT I personally interviewed and examined the patient. I have reviewed the history, physical examination, impression and plan as outlined by the advanced practice n arnold / nurse practitioner / PA-C and I concur unless otherwise noted. On exam, JVP is elevated. Combination of acute on chronic systolic and diastolic heart failure (HFpEF with RV failure), advanced liver disease, severe TR. We re commend transitioning back to higher dose spironolactone. Also we should avoid B B in this situation with RV failure and preserved LVEF. We will recommend digoxi n instead. May need to consider inotropes if RV failure progresses. Discussed wi patient and primary team. Total time 70 minutes. Estimated counseling time 40 minutes including risks/bene fits/alternatives discussion related to plan as outlined and answering all quest ions related to the care plan while educating on the importance of adherence to recommended therapies, outpatient follow-up, and also addressing prognosis speci fic to the patient/family concerns. Thank you for allowing us to participate in the shared care of your patient. Ramo Lamb MD [facility] Statistical Programmer documented in this encounter Miscellaneous Notes * Patient Education - FransiscoGhada savageh - 12/04/2020 10:59 AM CDT On 12/04/2020, Zaria Paulson was counseled and provided with a list of her dis charge medications as part of her After Visit Summary. The patient was instruct ed to bring this medication list to her next doctor's appointment and to update the list with any medication changes. Where indicated, the patient was provided with additional medication and/or disease-state information for heart failure. Pt had a good understanding of her disease state and how to manage it. All patient questions were answered and patient acknowledged understanding of e medications, side effects, and other pertinent medication information. Arleth Norris 12/04/2020 * Case Mgmt DC Plan - Reagan Vazquez - 12/04/2020 10:17 AM CDT Case Management Progress Note NAME:Zaria Paulson : AGE: 60 y.o. ADMISSION DATE: 11/29/2020 DAYS ADMITTED: LOS: 5 days Todays Date: 12/04/2020 Plan DC home today with family support, and [facility]. S/O provide transportation home at DC. Interventions Support Support: Pt/Family Updates re:POC or DC Plan Info or Referral Discharge Planning Discharge Planning: Home Health NCM notify [facility] of DC and send updated signed [facility] orders and clinical i nformation including AVS. Spoke to Hansa, orders and clinical information faxed to [facility] [place] [facility] [phone]. Medication Needs Financial Legal Other Disposition Expected Discharge Date 12/04/2020 Transportation Does the Patient Need Case Management to Arrange Discharge Transport? (ex: faci lity, ambulance, wheelchair/stretcher, Medicaid, cab, other): No Will the Patient Use Family Transport?: Yes Transportation Name, Phone and Availability #1: Senia Toribio [phone] Does the patient use Medicaid Transportation?: No Next Level of Care (Acute Psych discharges only) Discharge Disposition Selected Continued Care - Admitted Since 11/29/2020 Home Care Service Provider Selected Services Address Phone Fax Patient Preferred [facility] Health Services [address] [facility] [address] [phone] Reagan Vazquez RN BSN Integrated Nurse Switchbox Assembler [phone]/ [phone]/ Voalte [phone] * Care Plan - Carlo Klein RN - 12/04/2020 1:01 AM CDT Problem: Discharge Planning Goal: Knowledge regarding plan of care Outcome: Goal Ongoing Flowsheets (Taken 12/04/2020 0100) Knowledge regarding plan of care: Provide admission education to parent/caregiver Provide fall prevention education Provide VTE signs and symptoms education Provide pre-operative teaching Provide infection prevention education Provide plan of care education Provide medication management education Problem: Pain Goal: Knowledge of pain management Outcome: Goal Ongoing Flowsheets (Taken 12/04/2020 0100) Knowledge of pain management: Provide pain scale education Provide pain management methods education Provide pharmacological pain management education Goal: Progress Toward Pain Management Goals Outcome: Goal Ongoing Flowsheets (Taken 12/04/2020 0100) Progress toward pain management goals: Progress toward pain management goals Assess progress toward pain management goals * Care Plan - Tonie Fisher RN - 12/03/2020 3:55 PM CDT Problem: Discharge Planning Goal: Participation in plan of care Outcome: Goal Ongoing Flowsheets (Taken 12/03/2020 1554) Participation in Plan of Care: Involve patient/caregiver in care planning decisi on making Goal: Knowledge regarding plan of care Outcome: Goal Ongoing Flowsheets (Taken 12/03/2020 1554) Knowledge regarding plan of care: Provide admission education to parent/caregiver Provide fall prevention education Provide infection prevention education Provide plan of care education Provide procedural and treatment education Provide medication management education Goal: Prepared for discharge Outcome: Goal Ongoing Flowsheets (Taken 12/03/2020 1554) Prepared for discharge: Complete ADL ability assessment Provide safe use medical equipment education Provide diet and oral health education Collaborate with multidisciplinary team for hospital discharge coordination Problem: Moderate Fall Risk Goal: Moderate Fall Risk Outcome: Goal Ongoing Flowsheets (Taken 12/03/2020 1554) Moderate Fall Risk: All patients will receive: High fall risk sign, yellow wristband, yellow socks, gait belt, and shower shoes Stay with patient while toileting/showering Move patient near RN station if confused (if possible) Maximize bed functionality (optimize bed height, firm/flat surface) Use safe patient handling equipment as appropriate Remove excess equipment/supplies PT/OT consult for fall prevention assessment if scoring in Unsteady Gait or Vis ual or Auditory impairment Engage bed/chair alarm Educate patient to use call-light if tethered Problem: Pain Goal: Management of pain Outcome: Goal Ongoing Flowsheets (Taken 12/03/2020 1554) Management of pain: Complete pain assessment scale according to age, condition a nd ability to understand. Goal: Knowledge of pain management Outcome: Goal Ongoing Flowsheets (Taken 12/03/2020 1554) Knowledge of pain management: Provide pain scale education Goal: Progress Toward Pain Management Goals Outcome: Goal Ongoing * Procedures (Immed Post or Bedside) - Ramo Purcell MD - 12/02/2020 9:20 AM CDT Immediate Post Procedure Note Date: 12/02/2020 Attending Physician: Dr. Sue Performing Provider: Ramo Purcell MD Consent: Consent obtained from patient. Time out performed: Consent obtained, correct patient verified, correct procedur e verified, correct site verified, patient marked as necessary. Pre/Post Procedure Diagnosis: Ascites Indications: Ascites Procedure(s): US guided therapeutic paracentesis Findings: Moderate volume ascites. Straw colored fluid obtained. Estimated Blood Loss: None/Negligible Specimen(s) Removed/Disposition: None Complications: None Patient Tolerated Procedure: Well Post-Procedure Condition: stable Ramo Purcell MD * Case Mgmt DC Plan - Reagan Vazquez - 12/01/2020 2:02 PM CDT Case Management Progress Note NAME:Zaira Paulson : AGE: 60 y.o. ADMISSION DATE: 11/29/2020 DAYS ADMITTED: LOS: 2 days Todays Date: 12/01/2020 Plan Anticipate DC home with resumption of [facility]. provide transportation home at [place]. Nurse Switchbox Assembler We ekend Needs Instructions for W/E Staff: Please notify [facility] [phone] of DC and send updated clinical information including AVS. Teaching Needs Prior to DC: none Expected delivery of any needed medication/supplies/equipment: no Agency Expected SOC and Services Planned: Mon/Fri Interventions Support Support: Pt/Family Updates re:POC or DC Plan Info or Referral Discharge Planning Discharge Planning: Home Health [place] update [facility], and send signed [facility] orders and clinicl updates. [facility] sp bree with Hansa at [facility] office. Request to call [phone] to contact week end mark JARRELL. Medication Needs Financial Legal Other Disposition Expected Discharge Date 12/04/2020 Transportation Does the Patient Need Case Management to Arrange Discharge Transport? (ex: faci lity, ambulance, wheelchair/stretcher, Medicaid, cab, other): No Will the Patient Use Family Transport?: Yes Transportation Name, Phone and Availability #1: Senia Toribio [phone] Does the patient use Medicaid Transportation?: No Next Level of Care (Acute Psych discharges only) Discharge Disposition Selected Continued Care - Admitted Since 11/29/2020 No services have been selected for the patient. Reagan Vazquez RN BSN Integrated Nurse Switchbox Assembler [phone]/ [phone]/ Voalte [phone] * Case Mgmt DC Plan - Reagan Vazquez - 11/30/2020 1:48 PM CDT Case Management Admission Assessment NAME:Zaria Paulson :[birth year] AGE: 60 y.o. ADMISSION DATE: 11/29/2020 DAYS ADMITTED: LOS: 1 day Todays Date: 11/30/2020 Source of Information: patient This CM met with pt for assessment on this date. Provided contact information a nd explanation of SW/NCM roles. Reviewed [facility], Preparing for Disc harge, and Preferred Provider Network hand-outs. Provided opportunity for quest ions and discussion. Pt/family encouraged to contact Case Management team with q uestions and concerns during hospitalization and until patient is able to transi tion back to the patient's primary care physician. Plan Plan: Case Management Assessment, Discharge Planning for Home with Post-Acute Ca re Needs Anticipate DC home with family support, and resumption of [facility], [place] Senia Toribio provide transportation home at [place]. CM team continue to follow and assess additional CM needs. Interventions Support Support: Pt/Family Updates re:POC or DC Plan Info or Referral Discharge Planning Discharge Planning: Home Health NCM send clinical updates to [facility] central admissions. NCM will send upd ated [facility] orders and additional clinical information prior to DC. Medication Needs Financial Legal Other Disposition Expected Discharge Date 12/02/2020 Transportation Does the Patient Need Case Management to Arrange Discharge Transport? (ex: faci lity, ambulance, wheelchair/stretcher, Medicaid, cab, other): No Will the Patient Use Family Transport?: Yes Transportation Name, Phone and Availability #1: Catarino [phone] Does the patient use Medicaid Transportation?: No Next Level of Care (Acute Psych discharges only) Discharge Disposition Selected Continued Care - Admitted Since 11/29/2020 No services have been selected for the patient. Patient Address/Phone [address] [facility] [phone] (home) Emergency Contact Extended Emergency Contact Information Primary Emergency Contact: Catarino Westfall Mobile Relation: Significant Other Secondary Emergency Contact: Blair Chambers Mobile Relation: Son Healthcare Directive Healthcare Directive: Yes, patient has a healthcare directive Type of Healthcare Directive: Durable power of deputy attorney general for healthcare, [facility] re directive Location of Healthcare Directive: Patient does not have it with him/her Would patient like to fill out a (a new) Healthcare Directive?: No, patient decl ined Psych Advance Directive (Psych unit only): No, patient does not have a Psych Adv ance Directive Transportation Does the Patient Need Case Management to Arrange Discharge Transport? (ex: facil ity, ambulance, wheelchair/stretcher, Medicaid, cab, other): No Will the Patient Use Family Transport?: Yes Transportation Name, Phone and Availability #1: Catarino [phone] Does the patient use Medicaid Transportation?: No Expected Discharge Date 12/02/2020 Living Situation Prior to Admission Living Arrangements Type of Residence: Home, independent Living Arrangements: Spouse/significant other How many levels in the residence?: 1 Does residence have entry and/or side stairs?: Yes (1 step to enter) Assistance needed prior to admit or anticipated on discharge: No Who provides assistance or could if needed?: Catarino Can support system provide 24/7 care if needed?: Maybe Level of Function Prior level of function: Independent Cognitive Abilities Cognitive Abilities: Alert and Oriented, Participates in decision making Financial Resources Coverage Primary Insurance: Medicare (A&B) Secondary Insurance: Medicaid ([place] Medicaid) Additional Coverage: RX (Fills at [facility], Rx are affordable.) Source of Income Financial Assistance Needed? no Psychosocial Needs Mental Health Mental Health History: No Substance Use History Other none Current/Previous Services PCP Isaac, [place], , Pharmacy [facility] - [place], [place] - [address] [facility] [address] [facility] [address] [facility] [address] [facility]. [place] [address] [facility] [address] Durable Medical Equipment Durable Medical Equipment at home: [facility] Receiving home health: Yes Agency name: [facility] Fr. Menjivar Would patient use this agency again?: Yes Hemodialysis or Peritoneal Dialysis Undergoing hemodialysis or peritoneal dialysis: No Tube/Enteral Feeds Receive tube/enteral feeds: No Infusion Receive infusions: Yes Infusion company: Pt does not recall Private Duty Private duty help used: No Home and Community Based Services Home and community based services: No Wicho White Wicho White: No Hospice Hospice: No Outpatient Therapy PT: No OT: No SOCIAL WORK FACULTY MEMBER: No Care Home Facility/[facility] SNF: No NH: No Inpatient Rehab IPR: No Long-Term Acute Care Hospital LTACH: No Acute Hospital Stay Acute Hospital Stay: In the past Name of Hospital: [facility] When did patient receive care?: 11/04- Readmission Code Group: 9. Unrelated Readmision (previous admit r/t GIB, current admit r/t HF) Reagan Vazquez PURIFICATION OPERATOR HELPER Integrated Nurse Switchbox Assembler [phone]/ Rolandalclaire [phone] * Care Coordination-Inpatient - Mauricio Thapa MD - 11/30/2020 3:15 AM CDT Please page Med Private AOD [id number] before 8AM and page med private D after 8AM. * Drug Level - Heather Ott PHARMD - 11/29/2020 4:12 PM CDT Pharmacy Warfarin Note Subjective: Pharmacy consulted to assist with management of warfarin therapy. Objective: Zaria Paulson is a 60 y.o. female receiving warfarin for Mechanical AVR Comme nt: Mechanical AVR. Current Warfarin Orders Medication Dose Route Frequency warfarin, pharmacy to manage 1 each Service Per Pharmacy Bridge therapy: n/a. Warfarin dose for Ms. Paulson prior to admission: 4 mg daily INR Date/Time Value Ref Range Status 11/29/2020 1040 4.1 (H) 0.8 - 1.2 Final 11/28/2020 0000 2.9 (H) 0.8 - 1.4 Final Drug interaction(s): no. Assessment: Goal INR for Ms. Paulson is 2-3 for Mechanical AVR Comment: Mechanical AVR. INR: INR (no units) Date/Time Value 11/29/2020 1040 4.1 (H) INR Home (no units) Date/Time Value 11/02/2020 0000 2.4 INR POC (no units) Date/Time Value 11/21/2020 0824 1.7 (H) Plan: 1. Due to the large jump in INR from 2.9 yesterday to 4.1 today will hold tonig hts warfarin. 2. Next INR: Tomorrow 3. Pharmacy will [...] therapy will no longer be managed by Cheryl Ott PHARMD 11/29/2020 * Advanced Care Planning/Resuscitation Status - Berna Walton MD - 11/29/2020 4:00 PM CDT Advance Care Planning/Resuscitation Status Conversation Individuals present for advance care planning conversation: attending physician and patient Pertinent details of conversation (including direct quotes from patient or surro gate): Patient wishes to be full code and wants all life sustaining procedures i ncluding chest compressions, defibrillation, intubation with mechanical ventilat ion, pressors, and escalation of care in an event of cardiopulmonary arrest. DPOA: two sons Outcome of conversation: Full Code Documents completed as a result of this conversation: None Other documents present, which outline patient/surrogate wishes: None Attestation? N/A documented in this encounter Plan of Treatment Order Schedule Name Type Priority Associated Diag noses Expected: 12/07/2020 (Approximate), Expi res: 12/04/2021 DIGOXIN LEVEL Lab Routine Acute on chroni c heart failure with preserved ejection fraction (HCC) Expected: 12/11/2020 (Approximate), Expi res: 12/04/2021 BASIC METABOLIC PANEL Lab Routine Acute on chronic heart failure with preserved ejection fraction ([facility]) Once a Week Auto for 99 Occurrences star ting 12/04/2020 until 12/04/2021, 2 completed PROTIME INR (PT) Lab Routine Paroxysmal at rial fibrillation ([facility]) documented as of this encounter Goals Goal Patient Associated Recent Progress Patient-Stat Aut hor Goal Type Problems ed? [facility] On track (10/23/2020 Yes Sheldon, 1:06 PM CDT) CHRYSTAL Singh documented as of this encounter Procedures Comments Procedure Name Priority Date/Time Associated Diag nosis HC PT(INR) Routine 12/04/2020 3:52 AM CDT HC CBC W/ AUTOMATED DIFF Routine 12/04/2020 3:52 AM CDT HC MAGNESIUM Add on 12/04/2020 3:52 AM CDT HC DIGOXIN Routine 12/04/2020 3:52 AM CDT HC COMPREHENSIVE Routine 12/04/2020 METABOLIC PANEL 3:52 AM CDT HC MAGNESIUM Routine 12/03/2020 2:53 PM CDT HC BASIC METABOLIC PANEL Routine 12/03/2020 2:53 PM CDT HC PT(INR) Routine 12/03/2020 4:24 AM CDT HC CBC W/ AUTOMATED DIFF Routine 12/03/2020 4:24 AM CDT HC COMPREHENSIVE Routine 12/03/2020 METABOLIC PANEL 4:24 AM CDT HC BASIC METABOLIC PANEL Routine 12/02/2020 1:14 PM CDT IR PARACENTESIS Routine 12/02/2020 THERAPEUTIC 9:46 AM CDT HC PT(INR) Routine 12/02/2020 4:54 AM CDT HC CBC W/ AUTOMATED DIFF Routine 12/02/2020 4:54 AM CDT HC DIGOXIN Routine 12/02/2020 4:54 AM CDT HC COMPREHENSIVE Routine 12/02/2020 METABOLIC PANEL 4:54 AM CDT US ABDOMEN LIMITED Routine 12/01/2020 3:02 PM CDT HC BASIC METABOLIC PANEL Routine 12/01/2020 12:47 PM CDT HC PT(INR) Routine 12/01/2020 6:04 AM CDT HC CBC W/ AUTOMATED DIFF Routine 12/01/2020 6:04 AM CDT HC COMPREHENSIVE Routine 12/01/2020 METABOLIC PANEL 6:04 AM CDT 2D + DOPPLER ECHO W/ Routine 11/30/2020 CONTRAST 7:55 AM CDT HC PT(INR) Routine 11/30/2020 4:25 AM CDT HC CBC W/ AUTOMATED DIFF Routine 11/30/2020 4:25 AM CDT HC MAGNESIUM Add on 11/30/2020 4:25 AM CDT HC COMPREHENSIVE Routine 11/30/2020 METABOLIC PANEL 4:25 AM CDT CONSULT IV THERAPY TEAM Routine 11/29/2020 9:25 PM CDT CONSULT IV THERAPY TEAM STAT 11/29/2020 5:42 PM CDT CHEST SINGLE VIEW Routine 11/29/2020 5:38 PM CDT HC B-TYPE NATRIURETIC Routine 11/29/2020 PEPTIDE 5:22 PM CDT HC HEMOGLOBIN A1C Routine 11/29/2020 5:22 PM CDT HC Routine 11/29/2020 LIPID-5:CHOL/TRG/HDL/LDL+ 5:22 PM CDT VLDL ECG 12-LEAD STAT 11/29/2020 4:21 PM CDT COVID-19 (SARS-COV-2) PCR Routine 11/29/2020 4:20 PM CDT TELEMETRY STRIPS-SCAN 11/29/2020 12:00 AM CDT [...] AM CDT ECG-SCAN 11/29/2020 12:00 AM CDT documented in this encounter Results * PROTIME INR (PT) (12/08/2020) INR 2.0 (H) 0.8 - 1.4 [facility] Protime 23.1 (H) 12.2 - 14.7 [facility] Specimen Blood - Blood Narrative Performed At This result has an attachment that is n ot available. Performing Organization Address City/State/ZIP Code P shane Number [facility] [address] [place] [address] * PROTIME INR (PT) (12/06/2020) INR 1.7 (H) 0.8 - 1.4 [facility] Protime 19.8 (H) 12.2 - 14.7 [facility] Specimen Blood - Blood Narrative Performed At This result has an attachment that is n ot available. Performing Organization Address City/State/ZIP Code P shane Number [facility] [address] [place] [id number] * MAGNESIUM (12/04/2020 3:52 AM CDT) Magnesium 2.0 1.6 - 2.6 mg/dL [facility] Specimen Performing Organization Address City/[facility]/ZIP Code P shane Number [facility] [address] [place] [address] * COMPREHENSIVE METABOLIC PANEL (12/04/2020 3:52 AM CDT) Sodium 132 (L) 137 - 147 [...] >60 >60 mL/min [facility] Comment: [place] The eGFR is not validated f or use in drug dosing adjustments. Continue to use estimated creatinine clearance per dosing reference text. Please contact the Clinical Pharmacist for questions. eGFR >60 >60 mL/min [facility] [place] Comment: The eGFR is not validated for use in drug dosing adjustments. Continue to use estimated creatinine clearance per dosing reference text. Please contact the Clinical Pharmacist for questions. Specimen Blood Performing Organization Address City/[facility]/ZIP Code P shane Number [facility] [address] [place] [address] * CBC AND DIFF (12/04/2020 3:52 AM CDT) White Blood 12.7 (H) 4.5 - 11.0 [...] P shane Number [facility] [address] [place] [address] * DIGOXIN LEVEL (12/04/2020 3:52 AM CDT) Digoxin 1.4 (H) 0.5 - 1.0 NG/ML [facility] Specimen Blood Performing Organization Address City/[facility]/ZIP Code P shane Number [facility] [address] [place] [address] * PROTIME INR (PT) (12/04/2020 3:52 AM CDT) INR 1.9 (H) 0.8 - 1.2 [facility] Specimen Blood Performing Organization Address City/[facility] P shane Number [facility] [address] [place] [address] * MAGNESIUM (12/03/2020 2:53 PM CDT) Magnesium 1.4 (L) 1.6 - 2.6 mg/dL [facility] Specimen Blood Performing Organization Address City/[facility] P shane Number [facility] [address] [place] [address] * BASIC METABOLIC PANEL (12/03/2020 2:53 PM CDT) Sodium 134 (L) 137 - [...] >60 >60 mL/min [facility] Comment: [place] The eGFR is not validated f or use in drug dosing adjustments. Continue to use estimated creatinine clearance per dosing reference text. Please contact the Clinical Pharmacist for questions. eGFR >60 >60 mL/min [facility] [place] Comment: The eGFR is not validated for use in drug dosing adjustments. Continue to use estimated creatinine clearance per dosing reference text. Please contact the Clinical Pharmacist for questions. Specimen Blood Performing Organization Address [facility]/ZIP Code P shane Number [facility] [address] [place] [address] * COMPREHENSIVE METABOLIC PANEL (12/03/2020 4:24 AM CDT) Sodium 135 (L) 137 - 147 MMOL/L [facility] Potassium 4.1 3.5 - 5.1 MMOL/L [facility] Chloride 97 (L) 98 - 110 MMOL/L [facility] Glucose 93 70 - 100 MG/DL [facility] Blood Urea 16 7 - 25 MG/DL [facility] Nitrogen Creatinine 1.00 0.4 - 1.00 MG/DL [facility] Calcium 8.2 (L) 8.5 - 10.6 MG/DL [facility] Total Protein 5.8 (L) 6.0 - 8.0 G/DL [facility] Total Bilirubin 0.8 0.3 - 1.2 MG/DL [facility] Albumin 3.0 (L) 3.5 - 5.0 G/DL [facility] Alk Phosphatase 96 25 - 110 U/L [facility] AST (SGOT) 19 7 - 40 U/L [facility] CO2 32 (H) 21 - 30 MMOL/L [facility] ALT (SGPT) 8 7 - 56 U/L [facility] Anion Gap 6 3 - 12 [facility] eGFR Non 57 (L) >60 mL/min [facility] Comment: [place] The eGFR is not validated f or use in drug dosing adjustments. Continue to use estimated creatinine clearance per dosing reference text. Please contact the Clinical Pharmacist for questions. eGFR >60 >60 mL/min [facility] [place] Comment: The eGFR is not validated for use in drug dosing adjustments. Continue to use estimated creatinine clearance per dosing reference text. Please contact the Clinical Pharmacist for questions. Specimen Blood Performing Organization Address City/State/ZIP Code P shane Number [facility] [address] [place] [address] * CBC AND DIFF (12/03/2020 4:24 AM CDT) White Blood 9.2 4.5 - 11.0 K/UL [facility] Cells RBC 2.94 (L) 4.0 - 5.0 M/UL [facility] Hemoglobin 8.9 (L) 12.0 - 15.0 GM/DL [facility] Hematocrit 27.1 (L) 36 - 45 % [facility] MCV 92.1 80 - 100 FL [facility] MCH 30.2 26 - 34 PG [facility] MCHC 32.8 32.0 - 36.0 G/DL [facility] RDW 18.8 (H) 11 - 15 % [facility] Platelet Count 341 150 - 400 K/UL [facility] MPV 6.5 (L) 7 - 11 FL [facility] Neutrophils 89 (H) 41 - 77 % [facility] Lymphocytes 3 (L) 24 - 44 % [facility] Monocytes 6 4 - 12 % [facility] Eosinophils 1 0 - 5 % [facility] Basophils 1 0 - 2 % [facility] Absolute 8.27 (H) 1.8 - 7.0 K/UL [facility] Neutrophil Count Absolute Lymph 0.28 (L) 1.0 - 4.8 K/UL [facility] Count Absolute 0.51 0 - 0.80 K/UL [facility] Monocyte Count Absolute 0.11 0 - 0.45 K/UL [facility] Eosinophil Count Absolute 0.04 0 - 0.20 K/UL [facility] Basophil Count Specimen Blood Performing Organization Address City/State/ZIP Code P shane Number [facility] [address] [place] [address] * PROTIME INR (PT) (12/03/2020 4:24 AM CDT) INR 2.3 (H) 0.8 - 1.2 [facility] Specimen Blood Performing Organization Address City/[facility]/ZIP Code P shane Number [facility] [address] [place] [address] * BASIC METABOLIC PANEL (12/02/2020 1:14 PM CDT) Sodium 134 (L) 137 - 147 MMOL/L [facility] Potassium 3.3 (L) 3.5 - 5.1 MMOL/L [facility] Chloride 100 98 - 110 MMOL/L [facility] CO2 28 21 - 30 MMOL/L [facility] Anion Gap 6 3 - 12 [facility] Glucose 104 (H) 70 - 100 MG/DL [facility] Blood Urea 14 7 - 25 MG/DL [facility] Nitrogen Creatinine 0.89 0.4 - 1.00 MG/DL [facility] Calcium 8.0 (L) 8.5 - 10.6 MG/DL [facility] eGFR Non >60 >60 mL/min [facility] Comment: [place] The eGFR is not validated f or use in drug dosing adjustments. Continue to use estimated creatinine clearance per dosing reference text. Please contact the Clinical Pharmacist for questions. eGFR >60 >60 mL/min [facility] [place] Comment: The eGFR is not validated for use in drug dosing adjustments. Continue to use estimated creatinine clearance per dosing reference text. Please contact the Clinical Pharmacist for questions. Specimen Blood Performing Organization Address City/State/ZIP Code P shane Number [facility] [address] [place] [address] * IR PARACENTESIS THERAPEUTIC (12/02/2020 9:46 AM CDT) Specimen Impressions Performed At Successful therapeutic ultrasound guided paracentesis . 6300 mL of fluid was [facility] RESULTS removed. Approved by Ramo Purcell MD on 12/02 10:20 AM I, Iban Sue M.D., the attending radiologist, was present for [...] AM. Narrative Performed At Therapeutic ultrasound-guided paracentesis [facility] SULTS CLINICAL INDICATION: Ascites CLERICAL ADVISER: Ramo Purcell M.D. TECHNIQUE: Transverse real time images were obtained through the abdomen. The risks and benefits of this procedur e were discussed and informed written consent was obtained prior to performin g the procedure. The abdomen was then prepped and draped in usual sterile fashion. Limited ultrasound of the abdomen was performed . Under ultrasound guidance, a 5 [place] centesis needle was advanced into the p [...] CDT Therapeutic ultrasound-guided paracentesis CLINICAL INDICATION: Ascites CLERICAL ADVISER: Ramo Purcell M.D. TECHNIQUE: Transverse real time images were obtained through the abdomen. The risks and benefits of this procedure were discussed and informed written consent was obtained prior to performing the procedure. The abdomen was then prepped and draped in usual sterile fashion. Limited ultrasound of the abdomen was performed. Under ultrasound guidance, a 5 [place] centesis needle was advanced into the peritoneal [...] Ramo Purcell MD on 12/02/2020 10:20 AM I, Iban Sue M.D., the attending radiologist, was present for [...] P shane Number [facility] * COMPREHENSIVE METABOLIC PANEL (12/02/2020 4:54 AM CDT) Sodium 134 (L) 137 - 147 MMOL/L [facility] Potassium 3.4 (L) 3.5 - 5.1 MMOL/L [facility] Chloride 97 (L) 98 - 110 MMOL/L [facility] Glucose 89 70 - 100 MG/DL [facility] Blood Urea 15 7 - 25 MG/DL [facility] Nitrogen Creatinine 0.99 0.4 - 1.00 MG/DL [facility] Calcium 8.3 (L) 8.5 - 10.6 MG/DL [facility] Total Protein 6.0 6.0 - 8.0 G/DL [facility] Total Bilirubin 0.7 0.3 - 1.2 MG/DL [facility] Albumin 2.9 (L) 3.5 - 5.0 G/DL [facility] Alk Phosphatase 106 25 - 110 U/L [facility] AST (SGOT) 21 7 - 40 U/L [facility] CO2 28 21 - 30 MMOL/L [facility] ALT (SGPT) 9 7 - 56 U/L [facility] Anion Gap 9 3 - 12 [facility] eGFR Non 58 (L) >60 mL/min [facility] Comment: [place] The eGFR is not validated f or use in drug dosing adjustments. Continue to use estimated creatinine clearance per dosing reference text. Please contact the Clinical Pharmacist for questions. eGFR >60 >60 mL/min [facility] [place] Comment: The eGFR is not validated for use in drug dosing adjustments. Continue to use estimated creatinine clearance per dosing reference text. Please contact the Clinical Pharmacist for questions. Specimen Blood Performing Organization Address City/State/ZIP Code P shane Number [facility] [address] [place] [address] * CBC AND DIFF (12/02/2020 4:54 AM CDT) White Blood 8.0 4.5 - 11.0 K/UL [facility] Cells RBC 2.80 (L) 4.0 - 5.0 M/UL [facility] Hemoglobin 8.6 (L) 12.0 - 15.0 GM/DL [facility] Hematocrit 25.4 (L) 36 - 45 % [facility] MCV 90.5 80 - 100 FL [facility] MCH 30.5 26 - 34 PG [facility] MCHC 33.7 32.0 - 36.0 G/DL [facility] RDW 18.0 (H) 11 - 15 % [facility] Platelet Count 347 150 - 400 K/UL [facility] MPV 6.3 (L) 7 - 11 FL [facility] Neutrophils 85 (H) 41 - 77 % [facility] Lymphocytes 4 (L) 24 - 44 % [facility] Monocytes 8 4 - 12 % [facility] Eosinophils 2 0 - 5 % [facility] Basophils 1 0 - 2 % [facility] Absolute 6.89 1.8 - 7.0 K/UL [facility] Neutrophil Count Absolute Lymph 0.30 (L) 1.0 - 4.8 K/UL [facility] Count Absolute 0.61 0 - 0.80 K/UL [facility] Monocyte Count Absolute 0.17 0 - 0.45 K/UL [facility] Eosinophil Count Absolute 0.08 0 - 0.20 K/UL [facility] Basophil Count Specimen Blood Performing Organization Address City/State/ZIP Code P shane Number [facility] [address] [place] [address] * DIGOXIN LEVEL (12/02/2020 4:54 AM CDT) Digoxin 1.3 (H) 0.5 - 1.0 NG/ML [facility] Specimen Blood Performing Organization Address City/[facility]/ZIP Code P shane Number [facility] [address] [place] [address] * PROTIME INR (PT) (12/02/2020 4:54 AM CDT) INR 2.8 (H) 0.8 - 1.2 [facility] Specimen Blood Performing Organization Address City/[facility] P shane Number [facility] [address] [place] [address] * US ABDOMEN LIMITED (12/01/2020 3:02 PM [...] P shane Number [facility] * BASIC METABOLIC PANEL (12/01/2020 12:47 PM CDT) Sodium 132 (L) 137 - 147 MMOL/L [facility] Potassium 3.6 3.5 - 5.1 MMOL/L [facility] Chloride 95 (L) 98 - 110 MMOL/L [facility] CO2 26 21 - 30 MMOL/L [facility] Anion Gap 11 3 - 12 [facility] Glucose 106 (H) 70 - 100 MG/DL [facility] Blood Urea 16 7 - 25 MG/DL [facility] Nitrogen Creatinine 0.99 0.4 - 1.00 MG/DL [facility] Calcium 8.4 (L) 8.5 - 10.6 MG/DL [facility] eGFR Non 58 (L) >60 mL/min [facility] Comment: [place] The eGFR is not validated f or use in drug dosing adjustments. Continue to use estimated creatinine clearance per dosing reference text. Please contact the Clinical Pharmacist for questions. eGFR >60 >60 mL/min [facility] [place] Comment: The eGFR is not validated for use in drug dosing adjustments. Continue to use estimated creatinine clearance per dosing reference text. Please contact the Clinical Pharmacist for questions. Specimen Blood Performing Organization Address City/State/ZIP Code P shane Number [facility] [address] [place] [address] * COMPREHENSIVE METABOLIC PANEL (12/01/2020 6:04 AM CDT) Sodium 133 (L) 137 - 147 MMOL/L [facility] Potassium 2.9 (L) 3.5 - 5.1 MMOL/L [facility] Chloride 97 (L) 98 - 110 MMOL/L [facility] Glucose 87 70 - 100 MG/DL [facility] Blood Urea 17 7 - 25 MG/DL [facility] Nitrogen Creatinine 1.00 0.4 - 1.00 MG/DL [facility] Calcium 8.4 (L) 8.5 - 10.6 MG/DL [facility] Total Protein 6.0 6.0 - 8.0 G/DL [facility] Total Bilirubin 0.7 0.3 - 1.2 MG/DL [facility] Albumin 2.9 (L) 3.5 - 5.0 G/DL [facility] Alk Phosphatase 107 25 - 110 U/L [facility] AST (SGOT) 23 7 - 40 U/L [facility] CO2 26 21 - 30 MMOL/L [facility] ALT (SGPT) 9 7 - 56 U/L [facility] Anion Gap 10 3 - 12 [facility] eGFR Non 57 (L) >60 mL/min [facility] Comment: [place] The eGFR is not validated f or use in drug dosing adjustments. Continue to use estimated creatinine clearance per dosing reference text. Please contact the Clinical Pharmacist for questions. eGFR >60 >60 mL/min [facility] [place] Comment: The eGFR is not validated for use in drug dosing adjustments. Continue to use estimated creatinine clearance per dosing reference text. Please contact the Clinical Pharmacist for questions. Specimen Blood Performing Organization Address City/State/ZIP Code P shane Number [facility] [address] [place] [address] * CBC AND DIFF (12/01/2020 6:04 AM CDT) White Blood 6.3 4.5 - 11.0 K/UL [facility] Cells RBC 2.96 (L) 4.0 - 5.0 M/UL [facility] Hemoglobin 8.8 (L) 12.0 - 15.0 GM/DL [facility] Hematocrit 26.9 (L) 36 - 45 % [facility] MCV 91.1 80 - 100 FL [facility] MCH 29.9 26 - 34 PG [facility] MCHC 32.8 32.0 - 36.0 G/DL [facility] RDW 18.3 (H) 11 - 15 % [facility] Platelet Count 365 150 - 400 K/UL [facility] MPV 6.6 (L) 7 - 11 FL [facility] Neutrophils 82 (H) 41 - 77 % [facility] Lymphocytes 5 (L) 24 - 44 % [facility] Monocytes 8 4 - 12 % [facility] Eosinophils 4 0 - 5 % [facility] Basophils 1 0 - 2 % [facility] Absolute 5.14 1.8 - 7.0 K/UL [facility] Neutrophil Count Absolute Lymph 0.32 (L) 1.0 - 4.8 K/UL [facility] Count Absolute 0.52 0 - 0.80 K/UL [facility] Monocyte Count Absolute 0.24 0 - 0.45 K/UL [facility] Eosinophil Count Absolute 0.05 0 - 0.20 K/UL [facility] Basophil Count Specimen Blood Performing Organization Address City/[facility]/ZIP Code P shane Number [facility] [address] [place] [address] * PROTIME INR (PT) (12/01/2020 6:04 AM CDT) INR 3.0 (H) 0.8 - 1.2 [facility] Specimen Blood Performing Organization Address City/[facility]/ZIP Code P shane Number [facility] [address] [place] [address] * 2D + DOPPLER ECHO (11/30/2020 7:55 AM CDT) IVS 1.40 0.6 - 0.9 cm OTHER [...] = LAB AV index 0.28 OTHER OUTSIDE ([place]) LAB LVOT diameter 2.0 cm OTHER OUTSIDE LAB LVOT area 3.14 cm2 OTHER OUTSIDE LAB LVOT peak farhana 0.7 m/s OTHER OUTSIDE LAB LVOT stroke 48.07 cm3 OTHER OUTSIDE volume LAB and a peak 22 mmHg OTHER OUTSIDE gradient of LAB Vn Nyquist 0.29 m/s OTHER OUTSIDE LAB Mr max farhana 4.4 m/s OTHER OUTSIDE LAB MR ARMIN EROA 0.20 cm2 OTHER OUTSIDE LAB TV [...] pressure 76 mmHg. Compared to prior echocardiogram [facility] on 10/21/2020, findings are similar. EF was 60%. Mechanical aor tic valve mean gradient was 14 mmHg with a peak velocity of 2.6 m/s. Ther e was severe tricuspid regurgitation noted. Peak systolic PA pressure was 79 mmHg. Performing Organization Address City/State/ZIP Code P shane Number OTHER OUTSIDE LAB * MAGNESIUM (11/30/2020 4:25 AM CDT) Pathologist [facility] Magnesium 2.3 1.6 - 2.6 mg/dL [facility] Specimen Performing Organization Address City/State/ZIP Code P shane Number [facility] [address] [place] [address] * COMPREHENSIVE METABOLIC PANEL (11/30/2020 4:25 AM CDT) Sodium 132 (L) 137 - 147 MMOL/L [facility] Potassium 3.6 3.5 - 5.1 MMOL/L [facility] Chloride 99 98 - 110 MMOL/L [facility] Glucose 89 70 - 100 MG/DL [facility] Blood Urea 15 7 - 25 MG/DL [facility] Nitrogen Creatinine 0.98 0.4 - 1.00 MG/DL [facility] Calcium 8.2 (L) 8.5 - 10.6 MG/DL [facility] Total Protein 5.9 (L) 6.0 - 8.0 G/DL [facility] Total Bilirubin 0.7 0.3 - 1.2 MG/DL [facility] Albumin 2.9 (L) 3.5 - 5.0 G/DL [facility] Alk Phosphatase 114 (H) 25 - 110 U/L [facility] AST (SGOT) 25 7 - 40 U/L [facility] CO2 25 21 - 30 MMOL/L [facility] ALT (SGPT) 11 7 - 56 U/L [facility] Anion Gap 8 3 - 12 [facility] eGFR Non 58 (L) >60 mL/min [facility] Comment: [place] The eGFR is not validated f or use in drug dosing adjustments. Continue to use estimated creatinine clearance per dosing reference text. Please contact the Clinical Pharmacist for questions. eGFR >60 >60 mL/min [facility] [place] Comment: The eGFR is not validated for use in drug dosing adjustments. Continue to use estimated creatinine clearance per dosing reference text. Please contact the Clinical Pharmacist for questions. Specimen Blood Performing Organization Address City/State/ZIP Code P shane Number [facility] [address] [place] [address] * CBC AND DIFF (11/30/2020 4:25 AM CDT) White Blood 6.2 4.5 - 11.0 K/UL [facility] Cells RBC 2.79 (L) 4.0 - 5.0 M/UL [facility] Hemoglobin 8.6 (L) 12.0 - 15.0 GM/DL [facility] Hematocrit 25.3 (L) 36 - 45 % [facility] MCV 90.9 80 - 100 FL [facility] MCH 30.8 26 - 34 PG [facility] MCHC 33.9 32.0 - 36.0 G/DL [facility] RDW 18.1 (H) 11 - 15 % [facility] Platelet Count 355 150 - 400 K/UL [facility] MPV 6.5 (L) 7 - 11 FL [facility] Neutrophils 82 (H) 41 - 77 % [facility] Lymphocytes 5 (L) 24 - 44 % [facility] Monocytes 8 4 - 12 % [facility] Eosinophils 4 0 - 5 % [facility] Basophils 1 0 - 2 % [facility] Absolute 5.13 1.8 - 7.0 K/UL [facility] Neutrophil Count Absolute Lymph 0.28 (L) 1.0 - 4.8 K/UL [facility] Count Absolute 0.51 0 - 0.80 K/UL [facility] Monocyte Count Absolute 0.23 0 - 0.45 K/UL [facility] Eosinophil Count Absolute 0.07 0 - 0.20 K/UL [facility] Basophil Count Specimen Blood Performing Organization Address City/State/ZIP Code P shane Number [facility] [address] [place] [address] * PROTIME INR (PT) (11/30/2020 4:25 AM CDT) INR 3.3 (H) 0.8 - 1.2 [facility] Specimen Blood Performing Organization Address City/[facility]/ZIP Code P shane Number [facility] [address] [place] [address] * CHEST SINGLE VIEW (11/29/2020 5:38 PM CDT) Specimen Impressions Performed At 1. Stable mild [...] on 11/30/2020 7:49 AM. Performing Organization Address City/[facility]/ZIP Code P shane Number [facility] RES[facility] * BNP (B-TYPE NATRIURETIC PEPTI) (11/29/2020 5:22 PM CDT) B Type 396.0 (H) 0 - 100 PG/ML [facility] Natriuretic Peptide Specimen Blood Performing Organization Address [facility] P shane Number [facility] [address] [place] [id number] * LIPID PROFILE (11/29/2020 5:22 PM CDT) Cholesterol 76 <200 MG/DL [facility] Triglycerides 77 <150 MG/DL [facility] HDL 25 (L) >40 MG/DL [facility] LDL 43 <100 mg/dL [facility] VLDL 15 MG/DL [facility] Non HDL 51 MG/DL [facility] Cholesterol Comment: Calculated non-HDL Cholesterol (non-HDL-C) indirectly measures LDL-C, Lp(a), IDL-C, and VLDL-C. It is a surrogate marker for Apoprotein B. Goal should be less than 130 mg/dL. Specimen Blood Performing Organization Address [facility] P shane Number [facility] [address] [place] [address] * HEMOGLOBIN A1C (11/29/2020 5:22 PM CDT) Hemoglobin A1C 4.8 4.0 - 6.0 % [facility] Comment: The ADA recommends that most patients with type 1 and type 2 diabetes maintain an A1c level <7%. Specimen Blood Performing Organization Address [facility] P shane Number [facility] [address] [place] [id number] * COVID-19 (SARS-COV-2) PCR (11/29/2020 4:20 PM CDT) COVID-19 FLOCKED SWAB [facility] (SARS-CoV-2) NASOPHARYNGEAL PCR Source COVID-19 NOT DETECTED DN-NOT DETECTED [facility] (SARS-CoV-2) Comment: PCR This assay is [...] performance characteristics have been verified by the [facility]. Fact sheet for providers: https://www.fda.gov/media/1362 85/download Fact sheet for patients: https://www.fda.gov/media/1364 87/download Specimen Flocked Swab - Nasopharyngeal Performing Organization Address City/State/ZIP Code P shane Number MAIN LAB [address] [place] [address] * TELEMETRY STRIPS-SCAN (11/29/2020 12:00 AM CDT) [...] encounter Visit Diagnoses Diagnosis Acute on chronic heart failure, unspeci fied heart failure type (HCC) Cirrhosis of liver without ascites, uns pecified hepatic cirrhosis type (HCC) Right ventricular dysfunction Heart disease, unspecified Severe tricuspid regurgitation Diseases of tricuspid valve Other ascites Goals of care, counseling/discussion Other specified counseling Acute on chronic right-sided heart fail ure (HCC) Chronic anticoagulation Long-term (current) use of anticoagulan ts Chronic heart failure with preserved ej ection fraction (HCC) Hx of mechanical aortic valve replaceme nt Heart valve replaced by other means Paroxysmal atrial fibrillation (HCC) Atrial fibrillation Acute on chronic heart failure with pre served ejection fraction (HCC) Aortic valve prosthesis present Heart valve replaced by other means RVF (right ventricular failure) (HCC) Congestive heart failure, unspecified Hyponatremia Hyposmolality and/or hyponatremia Iron deficiency anemia Iron deficiency anemia, unspecified Stage 3b chronic kidney disease (HCC) documented in this encounter Administered Medications Action Date Dose Rate Site Medication Order MAR Action 12/03/2020 8:49 PM CDT 650 mg acetaminophen (TYLENOL) tablet 650 mg Given 650 mg, Oral, EVERY 6 HOURS PRN, Starting on Fri11/29/20 at 1532, Until Fri12/04/20 at 1312, Pain non-opioid: may be used alone or in combination wit h opioid analgesia, TOTAL ACETAMINOPHEN DOSE NOT TO EXCEED 4GM DAILY 650 mg Given 12/02/2020 8:09 PM CDT 650 mg Given 12/02/2020 10:12 AM CDT 650 mg Given 12/01/2020 9:20 PM CDT 650 mg Given 11/30/2020 10:03 PM CDT 650 mg Given 11/30/2020 3:55 PM CDT 12/02/2020 9:31 AM CDT 37.5 g albumin 25% injection Given - New INTRA-PROCEDURE MED(CONT), Starting on Bag 12/02/20 at 0931, Until 12/02/20 at 0931 12/03/2020 4:43 AM CDT 0.5 mg/hr 2 mL/hr bumetanide (BUMEX) 12.5 mg in empty IV Given - New bag 50 mL IV drip (std conc) Bag 0.5 mg/hr (2 mL/hr), Intravenous, 50 mL , at 2 mL/hr, CONTINUOUS, Starting on Fri11/29/20 at 2145, Until 12/03/20 at 1313, Loading Dose: 1 mg Std conc = 0.2 5 mg/mL PROTECT FROM LIGHT 0.5 mg/hr 2 mL/hr Given - New Bag 12/02/2020 5:40 AM CDT 0.5 mg/hr 2 mL/hr Given - New Bag 12/01/2020 5:36 AM CDT 0.5 mg/hr 2 mL/hr Given - New Bag 11/30/2020 5:56 AM CDT 0.5 mg/hr 2 mL/hr Dose/Rate Change 11/29/2020 11:28 PM CDT 1 mg/hr 4 mL/hr Given - New Bag 11/29/2020 9:55 PM CDT 11/29/2020 5:40 PM CDT 5 mg bumetanide (BUMEX) injection 5 mg Given 5 mg, Intravenous, ONCE, 1 dose, On Fri11/29/20 at 1700, PROTECT FROM LIGHT 12/04/2020 8:23 AM CDT 5 mg bumetanide (BUMEX) tablet 5 mg Given 5 mg, Oral, TWICE DAILY, First dose on Fri12/03/20 at 1700, Until Discontinued 5 mg Given 12/03/2020 5:03 PM CDT 12/03/2020 8:25 AM CDT 125 mcg digoxin (LANOXIN) tablet 125 mcg Given 125 mcg, Oral, DAILY, First dose on Fri12/01/20 at 0900, Until Discontinued, Hold for heart rate < 70 bpm NOTE: PHARMACOKINETIC MONITORING 125 mcg Given 12/02/2020 10:10 AM CDT 125 mcg Given 12/01/2020 8:23 AM CDT digoxin (LANOXIN) tablet 125 mcg 125 mcg, Oral, EVERY 48 HOURS, First dose (after last modification) on Fri12/05/20 at 0900, Until Discontinued, Hold for heart rate < 70 bpm NOTE: PHARMACOKINETIC MONITORING 11/30/2020 2:24 PM CDT 500 mcg digoxin (LANOXIN) tablet 500 mcg Given 500 mcg, Oral, ONCE, 1 dose, On Toya 11/30/20 at 1445, Hold for heart rate < 7 0 bpm NOTE: PHARMACOKINETIC MONITORING hydrOXYzine HCL (ATARAX) tablet 25 mg 25 mg, Oral, THREE TIMES DAILY PRN, Starting on Fri11/29/20 at 1602, Until Fri12/04/20 at 1312, Anxiety PO, Itchin g PO 12/01/2020 10:38 AM CDT 300 mg 77 mL/hr iron sucrose (VENOFER) 300 mg in sodium Given - New chloride 0.9% (NS) IVPB Bag 300 mg, Intravenous, 115 mL, Administer over 90 Minutes, DAILY, 3 doses, First dose on Fri11/29/20 at 1700, Last dose o n Fri12/01/20 at 0900, -STOP infusion immediately, and notify [...] respiratory rate, tremor and convulsions. 300 mg 77 mL/hr Given - New Bag 11/30/2020 8:51 AM CDT 300 mg 77 mL/hr Given - New Bag 11/29/2020 6:23 PM CDT 12/04/2020 5:33 AM CDT 75 mcg levothyroxine (SYNTHROID) tablet 75 mcg Given 75 mcg, Oral, DAILY 30MIN BEFORE BREAKFAST, First dose on Toya 11/30/20 at 0630, Until Discontinued, Give 1 hour before a meal. If patient is receiving tube feedings, hold tube feed 1hr befor e and 1hr after dose. 75 mcg Given 12/03/2020 6:23 AM CDT 75 mcg Given 12/02/2020 5:40 AM CDT 75 mcg Given 12/01/2020 5:36 AM CDT 75 mcg Given 11/30/2020 5:46 AM CDT 12/03/2020 8:37 PM CDT 1 g 25 mL/hr magnesium sulfate 1 g/D5W 100 mL IVPB Given - New 1 g, Intravenous, 100 mL, Administer Bag over 4 Hours, EVERY 4 HOURS, 1 dose, First dose on Fri12/03/20 at 2100, Each 1gm delivers 8.1 mEq Magnesium. 12/04/2020 12:50 AM CDT 1 g 25 mL/hr magnesium sulfate 1 g/D5W 100 mL IVPB Given - New 1 g, Intravenous, 100 mL, Administer Bag over 4 Hours, EVERY 4 HOURS, 1 dose, First dose on Fri12/04/20 at 0100, Each 1gm delivers 8.1 mEq Magnesium. 12/04/2020 5:32 AM CDT 1 g 25 mL/hr magnesium sulfate 1 g/D5W 100 mL IVPB Given - New 1 g, Intravenous, 100 mL, Administer Bag over 4 Hours, EVERY 4 HOURS, 1 dose, First dose on Fri12/04/20 at 0500, Each 1gm delivers 8.1 mEq Magnesium. 11/29/2020 8:59 PM CDT 4 g 6.3 mL/hr magnesium sulfate 4 g/50 mL IVPB Given - New 4 g, Intravenous, 50 mL, Administer over Bag 8 Hours, ONCE, 1 dose, On Fri11/29/20 at 1645, Each 1gm delivers 8.1 mEq Magnesium 12/03/2020 8:49 PM CDT 3 mg melatonin (MELATIN) tablet 3 mg Given 3 mg, Oral, AT BEDTIME PRN, Starting on Fri11/29/20 at 1532, Until Fri12/04/20 a t 1312, Insomnia 3 mg Given 12/02/2020 8:09 PM CDT 11/29/2020 5:38 PM CDT 2.5 mg metOLazone (ZAROXOLYN) tablet 2.5 mg Given 2.5 mg, Oral, ONCE, 1 dose, On Fri11/29/20 at 1715 11/29/2020 6:22 PM CDT 5 mg metoprolol (LOPRESSOR) injection 5 mg Given 5 mg, Intravenous, ONCE, 1 dose, On Fri11/29/20 at 1830, Hold for heart rate < 6 0 bpm, systolic BP < 90 or diastolic BP < 60 PROTECT FROM LIGHT 11/29/2020 9:40 PM CDT 12.5 mg metoprolol tartrate tablet 12.5 mg Given 12.5 mg, Oral, TWICE DAILY, First dose on Fri11/29/20 at 2230, Until Discontinued, Hold for heart rate < 60 bpm, systolic BP < 90 or diastolic BP < 60 12/04/2020 8:24 AM CDT 5 mg oxybutynin chloride (DITROPAN) tablet 5 Given mg 5 mg, Oral, THREE TIMES DAILY, First dose on Fri11/29/20 at 1630, Until Discontinued 5 mg Given 12/03/2020 8:36 PM CDT 5 mg Given 12/03/2020 2:57 PM CDT 5 mg Given 12/03/2020 8:25 AM CDT 5 mg Given 12/02/2020 8:09 PM CDT 5 mg Given 12/02/2020 2:40 PM CDT 5 mg Given 12/02/2020 8:17 AM CDT 5 mg Given 12/01/2020 8:09 PM CDT 5 mg Given 12/01/2020 3:22 PM CDT 5 mg Given 12/01/2020 8:22 AM CDT 5 mg Given 11/30/2020 8:11 PM CDT 5 mg Given 11/30/2020 2:24 PM CDT 5 mg Given 11/30/2020 8:46 AM CDT 5 mg Given 11/29/2020 8:58 PM CDT 5 mg Given 11/29/2020 5:39 PM CDT 12/03/2020 8:36 PM CDT [address] (PROTONIX) tablet 40 mg Given 40 mg, Oral, DAILY, First dose on Fri11/29/20 at 2100, Until Discontinued, Do not crush or chew tablet. 40 mg Given 12/02/2020 8:09 PM CDT 40 mg Given 12/01/2020 8:09 PM CDT 40 mg Given 11/30/2020 8:11 PM CDT 40 mg Given 11/29/2020 8:58 PM CDT 11/30/2020 7:56 AM CDT 3 Diluted mL perflutren lipid microspheres (DEFINITY) Given injection 1-20 Diluted mL 1-20 Diluted mL, Intravenous, ONCE PRN, 1 dose, Starting on Toya 11/30/20 at 0651, Until Toya 11/30/20 at 0756, For Procedure , A music typographer may only administer Definity through a saline lock. If IV i s in use or a port, PICC, or central line is being used a nurse must administer. NOTE: This is a HIGH ALERT Medication., MAC Procedure Area Only - Medications 12/01/2020 8:32 AM CDT 10 mEq 50 mL/hr potassium chloride in water IVPB 10 mEq Given - New 10 mEq, Intravenous, 50 mL, Administer Bag over 60 Minutes, EVERY 1 HOUR, 1 dose, First dose on Fri12/01/20 at 0845, NOTE : This is a HIGH ALERT Medication. 12/01/2020 9:25 AM CDT 10 mEq 50 mL/hr potassium chloride in water IVPB 10 mEq Given - New 10 mEq, Intravenous, 50 mL, Administer Bag over 60 Minutes, EVERY 1 HOUR, 1 dose, First dose on Fri12/01/20 at 0945, NOTE : This is a HIGH ALERT Medication. 11/29/2020 9:40 PM CDT 20 mEq potassium chloride SR (K-DUR) tablet 20 Given mEq 20 mEq, Oral, ONCE, 1 dose, On Fri11/29/20 at 2145, - Tablet may be dispersed in water. Place tab in 30 mL of water for 40-60 seconds. - Gently swirl until fully dispersed. If particles remain after admin, add small amount of water and admin remaining content. - DO NOT CRUSH. Tablet may be split in half. Give with meal or full glass of water 11/30/2020 8:46 AM CDT 40 mEq potassium chloride SR (K-DUR) tablet 40 Given mEq 40 mEq, Oral, ONCE, 1 dose, On Toya 11/30/20 at 0815, - Tablet may be dispersed in water. Place tab in 30 mL of water for 40-60 seconds. - Gently swirl until fully dispersed. If particles remain after admin, add small amount of water and admin remaining content. - DO NOT CRUSH. Tablet may be split in half. Give with meal or full glass of water 12/03/2020 2:57 PM CDT 40 mEq potassium chloride SR (K-DUR) tablet 40 Given mEq 40 mEq, Oral, ONCE, 1 dose, On 12/03/20 at 1415, - Tablet may be dispersed in water. Place tab in 30 mL of water for 40-60 seconds. - Gently swirl until fully dispersed. If particles remain after admin, add small amount of water and admin remaining content. - DO NOT CRUSH. Tablet may be split in half. Give with meal or full glass of water 12/04/2020 9:28 AM CDT 40 mEq potassium chloride SR (K-DUR) tablet 40 Given mEq 40 mEq, Oral, ONCE, 1 dose, On 12/04/20 at 0900, Do NOT break or crush tablet Give with meal or full glass of water 11/29/2020 5:38 PM CDT 60 mEq potassium chloride SR (K-DUR) tablet 60 Given mEq 60 mEq, Oral, ONCE, 1 dose, On Fri11/29/20 at 1600, - Tablet may be dispersed in water. Place tab in 30 mL of water for 40-60 seconds. - Gently swirl until fully dispersed. If particles remain after admin, add small amount of water and admin remaining content. - DO NOT CRUSH. Tablet may be split in half. Give with meal or full glass of water 12/01/2020 8:19 AM CDT 60 mEq potassium chloride SR (K-DUR) tablet 60 Given mEq 60 mEq, Oral, ONCE, 1 dose, On Fri12/01/20 at 0745, Give with meal or full glass of water 12/01/2020 5:43 PM CDT 60 mEq potassium chloride SR (K-DUR) tablet 60 Given mEq 60 mEq, Oral, ONCE, 1 dose, On Fri12/01/20 at 1700, Give with meal or full glass of water 12/02/2020 6:11 PM CDT 60 mEq potassium chloride SR (K-DUR) tablet 60 Given mEq 60 mEq, Oral, ONCE, 1 dose, On 12/02/20 at 1745, - Tablet may be dispersed in water. Place tab in 30 mL of water for 40-60 seconds. - Gently swirl until fully dispersed. If particles remain after admin, add small amount of water and admin remaining content. - DO NOT CRUSH. Tablet may be split in half. Give with meal or full glass of water 11/30/2020 3:25 AM CDT 10 mg prochlorperazine (COMPAZINE) injection Given 10 mg 10 mg, Intravenous, EVERY 6 HOURS PRN, Starting on Toya 11/30/20 at 0313, Until 12/04/20 at 1312, Nausea/Vomiting Injectable, PROTECT FROM LIGHT -- May b e given undiluted, or each 5mg may be diluted with 9 mL of NS to facilitate titration. 12/02/2020 8:17 AM CDT 100 mg sertraline (ZOLOFT) tablet 100 mg Given 100 mg, Oral, DAILY, First dose on Fri11/29/20 at 1630, Until Discontinued 100 mg Given 12/01/2020 8:23 AM CDT 100 mg Given 11/30/2020 8:46 AM CDT 100 mg Given 11/29/2020 5:38 PM CDT 12/04/2020 8:23 AM CDT 100 mg sertraline (ZOLOFT) tablet 100 mg Given 100 mg, Oral, TWICE DAILY, First dose (after last modification) on Sat 1 at 2100, Until Discontinued 100 mg Given 12/03/2020 8:35 PM CDT 100 mg Given 12/03/2020 8:25 AM CDT 100 mg Given 12/02/2020 8:09 PM CDT 12/01/2020 8:24 AM CDT 10 mL/hr sodium chloride 0.9 % TKO infusion Given - New Intravenous, at 10 mL/hr, CONTINUOUS, Bag Starting on Fri12/01/20 at 0815, Until Fri12/04/20 at 1312, Infusions ordered as IV piggy back (IVPB) or patient controlled analgesia (BRANCH SALES AND SERVICE REPRESENTATIVE) infusions ma y be infused with as a secondary or Y-sited with a primary infusion of 250 mL 0.9% sodium chloride, or other compatible fluid as applicable, at the rate of 10 mL/hr to flush the line afte r infusion and/or keep the line patent. 12/04/2020 8:23 AM CDT 100 mg spironolactone (ALDACTONE) tablet 100 mg Given 100 mg, Oral, DAILY, First dose (after last modification) on 12/02/20 at 0900, Until Discontinued, NURSING: Please educate patient and document: Avoid using salt substitutes which have a high potassium content (Nu-Salt). 100 mg Given 12/03/2020 8:25 AM CDT 100 mg Given 12/02/2020 8:17 AM CDT 11/30/2020 8:46 AM CDT 25 mg spironolactone (ALDACTONE) tablet 25 mg Given 25 mg, Oral, DAILY, First dose on Fri11/29/20 at 1630, Until Discontinued, NURSING: Please educate patient and document: Avoid using salt substitutes which have a high potassium content (Nu-Salt). 25 mg Given 11/29/2020 5:39 PM CDT 11/30/2020 2:23 PM CDT 25 mg spironolactone (ALDACTONE) tablet 25 mg Given 25 mg, Oral, ONCE, 1 dose, On Toya 1 at 1330, NURSING: Please educate patient and document: Avoid using salt substitutes which have a high potassium content (Nu-Salt). 12/01/2020 8:22 AM CDT 50 mg spironolactone (ALDACTONE) tablet 50 mg Given 50 mg, Oral, DAILY, First dose (after last modification) on Fri12/01/20 at 0900, Until Discontinued, NURSING: Please educate patient and document: Avoid using salt substitutes which have a high potassium content (Nu-Salt). 12/01/2020 10:37 AM CDT 50 mg spironolactone (ALDACTONE) tablet 50 mg Given 50 mg, Oral, ONCE, 1 dose, On Fri12/01/20 at 0945, NURSING: Please educate patient and document: Avoid using salt substitutes which have a hig h potassium content (Nu-Salt). 12/01/2020 8:09 PM CDT 1 mg warfarin (COUMADIN) tablet 1 mg Given 1 mg, Oral, AT BEDTIME DAILY, First dos e (after last modification) on Fri 1 at 2100, Until Discontinued, NURSING: Provide patient with warfarin education leaflet. Do not give with cranberry juice. NOTE: This is a HIGH ALERT Medication. 11/30/2020 8:11 PM CDT 2 mg warfarin (COUMADIN) tablet 2 mg Given 2 mg, Oral, AT BEDTIME DAILY, First dos e on Toya 11/30/20 at 2100, Until Discontinued, NURSING: Provide patient with warfarin education leaflet. Do not give with cranberry juice. NOTE: This i s a HIGH ALERT Medication. 12/03/2020 8:35 PM CDT 2 mg warfarin (COUMADIN) tablet 2 mg Given 2 mg, Oral, AT BEDTIME DAILY, First dos e (after last modification) on [facility] 1 at 2100, Until Discontinued, NURSING: Provide patient with warfarin education leaflet. Do not give with cranberry juice. NOTE: This is a HIGH ALERT Medication. 2 mg Given 12/02/2020 8:09 PM CDT warfarin, pharmacy to manage PER PHARMACY, 999 doses, Starting on We d 11/29/20 at 1636, Until 12/04/20 at 1312, Warfarin Indication: Other (specify in comments), INR Goal: INR 2-3, This order is for informational us e only. See separate order for administration and documentation of warfarin. NOTE: This is a HIGH ALERT Medication. documented in this encounter Discontinued Medications Start Date End Date Medication Sig Discontinue Reason 11/17/2020 11/30/2020 cefdinir (OMNICEF) 300 mg Take 1 Removed from capsuleIndications: Acute capsule by PROJECT GEOPHYSICIST Med List on chronic heart failure mouth twice with preserved ejection daily. fraction (HCC), Aortic valve prosthesis present 12/01/[address] ([facility]) Take 40 mg Removed from 40 mg capsule by mouth PROJECT GEOPHYSICIST Med List twice daily. 11/21/2020 12/04/2020 warfarin (COUMADIN) 4 mg Take one tablet tablet by mouth daily. 12/04/2020 sertraline (ZOLOFT) 25 mg Take 25 mg tablet by mouth daily. 12/04/2020 sertraline (ZOLOFT) 100 Take 100 mg Reorder mg tablet by mouth daily. 11/15/2020 12/04/2020 warfarin (COUMADIN) 1 mg Take four Reorder tablet tablets by mouth daily to equal 4mg dose. 11/21/2020 12/04/2020 spironolactone Take one Reorder (ALDACTONE) 25 mg tablet by tabletIndications: Acute mouth daily. on chronic heart failure Take with with preserved ejection food. fraction (HCC), Aortic valve prosthesis present 11/24/2020 12/04/2020 bumetanide (BUMEX) 1 mg Take four Reorder tabletIndications: Acute tablets by on chronic heart failure mouth twice with preserved ejection daily. fraction (HCC), Aortic valve prosthesis present 12/04/2020 12/04/2020 warfarin (COUMADIN) 1 mg Take two Reorder tablet tablets by mouth daily. Take four tablets by mouth daily to equal 4mg dose. 12/05/2020 12/04/2020 digoxin (LANOXIN) 125 mcg Take one (0.125 mg) tablet tablet by mouth every 48 hours. documented as of this encounter Historical Medications * This list may reflect changes made after this encounter. Start Date End Date Medication Sig Dispensed Refills acetaminophen (TYLENOL Take 500 mg 0 EXTRA STRENGTH) 500 mg by mouth tablet every 4 hours as needed for Pain. Max of 4,000 mg of acetaminophen in 24 hours. mupirocin (BACTROBAN) 2 % Apply 1 g 0 topical ointment topically to affected area three times daily. pantoprazole DR Take 40 mg by 0 (PROTONIX) 40 mg tablet mouth twice daily. 12/04/2020 sertraline (ZOLOFT) 25 mg Take 25 mg by 0 tablet mouth daily. added in this encounter Active and Recently Administered Medications Times are shown in CDT. 12/03/2020 12/04/2020 Medication Order 12/02/2020 1703 (Given - Provider: Jojo Fish) 0823 (Given - Provider: Sarah Suero RN) bumetanide (BUMEX) tablet 5 mg 5 mg, Oral, TWICE DAILY, First dose on Fri12/03/20 at 1700, Until Discontinued 0825 (Given - Provider: Jojo Fish) digoxin (LANOXIN) tablet 125 mcg 0908 (MAY Hold - (CANCELED) Provider: Kendrick, Orders 125 mcg, Oral, DAILY, First dose on Fri Discontinue - 12/01/20 at 0900, Until Discontinued, Reason: Patient not Hold for heart rate < 70 bpm NOTE: available/off PHARMACOKINETIC MONITORING unit)1007 (MAY Unhold - Provider: Kendrick, Orders Discontinue)1010 (Given - Provider: Aarti Jacobs RN - Comment: after pharmacy adjusted time pt off unit) digoxin (LANOXIN) tablet 125 mcg 125 mcg, Oral, EVERY 48 HOURS, First dose (after last modification) on Fri12/05/20 at 0900, Until Discontinued, Hold for heart rate < 70 bpm NOTE: PHARMACOKINETIC MONITORING 0825 (Med Not Given - Provider: Tonie vaughn RN - Reason: Patient Refused) 0824 (Med Not Given - Provider: Sarah Suero RN - Reason: Patient Refused) fluticasone propionate (FLONASE) nasal 0817 (Med Not Given spray 1 spray - Provider: Aarti 1 spray, Each Nostril, DAILY, First dose CHRYSTAL Jacobs - on Fri11/29/20 at 1630, Until Reason: Patient Discontinued Refused)0908 (MAY Hold - Provider: Kendrick, Orders Discontinue - Reason: Patient not available/off unit)1007 (MAY Unhold - Provider: Kendrick, Orders Discontinue) 0623 (Given - Provider: Vicky Barrett RN) 0533 (Given - Provider: Jojo Sullivan) levothyroxine (SYNTHROID) tablet 75 mcg 0540 (Given - 75 mcg, Oral, DAILY 30MIN BEFORE Provider: Vicky VALDES, First dose on Fri11/30/20 at CHRYSTAL Barrett)09 08 (MAY 629, Until Discontinued, Give 1 hour Hold - Provide r: Kendrick, before a meal. If patient is receiving Orders Disco ntinue - tube feedings, hold tube feed 1hr before Reason: Pat ient not and 1hr after dose. available/off unit)1007 (MAY Unhold - Provider: Kendrick, Orders Discontinue) 2036 (Given - New Bag - Provider: Carlo Klein RN) magnesium sulfate 1 g/D5W 100 mL IVPB (COMPLETED) 1 g, Intravenous, 100 mL, Administer over 4 Hours, EVERY 4 HOURS, 1 dose, First dose on Fri12/03/20 at 2100, Each 1gm delivers 8.1 mEq Magnesium. 0050 (Given - New Bag - Provider: Carlo Klein RN) magnesium sulfate 1 g/D5W 100 mL IVPB (COMPLETED) 1 g, Intravenous, 100 mL, Administer over 4 Hours, EVERY 4 HOURS, 1 dose, First dose on Fri12/04/20 at 0100, Each 1gm delivers 8.1 mEq Magnesium. 0532 (Given - New Bag - Provider: Carlo Klein RN) magnesium sulfate 1 g/D5W 100 mL IVPB (COMPLETED) 1 g, Intravenous, 100 mL, Administer over 4 Hours, EVERY 4 HOURS, 1 dose, First dose on Fri12/04/20 at 0500, Each 1gm delivers 8.1 mEq Magnesium. 0825 (Given - Provider: Jojo Fish)1457 (Given - Provider: Tonie Fisher RN)2035 (Given - Provider: Carlo Klein RN) 0824 (Given - Provider: Sarah Suero RN) oxybutynin chloride (DITROPAN) tablet 5 0817 (Given - mg Provider: Aarti 5 mg, Oral, THREE TIMES DAILY, First Arlene RN)090 8 dose on Fri11/29/20 at 1630, Until (MAY Hold - Discontinued Provider: Kendrick, Orders Discontinue - Reason: Patient not available/off unit)1007 (MAY Unhold - Provider: Kendrick, Orders Discontinue)1440 (Given - Provider: Aarti Jacobs, CHRYSTAL)2008 (Given - Provider: Vicky Barrett RN) 2035 (Given - Provider: Jojo Sullivan) pantoprazole DR (PROTONIX) tablet 40 mg 0908 (MAY Ho ld - 40 mg, Oral, DAILY, First dose on Fri Provider: Kendrick, Orders 11/29/20 at 2100, Until Discontinued, Do Discontinue - not crush or chew tablet. Reason: Patient not available/off unit)1007 (MAR Unhold - Provider: Kendrick, Orders Discontinue)2008 (Given - Provider: Vicky Barrett RN) 1457 (Given - Provider: Jojo Fish) potassium chloride SR (K-DUR) tablet 40 mEq (COMPLETED) 40 mEq, Oral, ONCE, 1 dose, On 12/03/20 at 1415, - Tablet may be dispersed in water. Place tab in 30 mL of water for 40-60 seconds. - Gently swirl until fully dispersed. If particles remain after admin, add small amount of water and admin remaining content. - DO NOT CRUSH. Tablet may be split in half. Give with meal or full glass of water 0928 (Given - Provider: Sarah Suero RN) potassium chloride SR (K-DUR) tablet 40 mEq (COMPLETED) 40 mEq, Oral, ONCE, 1 dose, On 12/04/20 at 0900, Do NOT break or crush tablet Give with meal or full glass of water potassium chloride SR (K-DUR) tablet 60 1811 (Given - mEq (COMPLETED) Provider: Aarti 60 mEq, Oral, ONCE, 1 dose, On Sat CHRYSTAL Jacobs) 12/02/20 at 1745, - Tablet may be dispersed in water. Place tab in 30 mL of water for 40-60 seconds. - Gently swirl until fully dispersed. If particles remain after admin, add small amount of water and admin remaining content. - DO NOT CRUSH. Tablet may be split in half. Give with meal or full glass of water sertraline (ZOLOFT) tablet 100 mg 0817 (Given - (CANCELED) Provider: Aarti 100 mg, Oral, DAILY, First dose on Fri CHRYSTAL Jacobs)0 908 11/29/20 at 1630, Until Discontinued (MAY Hold - Provider: Kendrick, Orders Discontinue - Reason: Patient not available/off unit)1007 (MAR Unhold - Provider: Kendrick, Orders Discontinue) 0825 (Given - Provider: Jojo Fish)2034 (Given - Provider: Carlo Klein RN) 822 (Given - Provider: Sarah Suero, CHRYSTAL) sertraline (ZOLOFT) tablet 100 mg 2008 (Given - 100 mg, Oral, TWICE DAILY, First dose Provider: Monica nicolas (after last modification) on 12/02/20 CHRYSTAL Barrett) at 2100, Until Discontinued 824 (Given - Provider: Jojo Fish) 822 (Given - Provider: Sarah Suero RN) spironolactone (ALDACTONE) tablet 100 mg 816 (Given - 100 mg, Oral, DAILY, First dose (after Provider: Manoj medrano last modification) on 12/02/20 at CHRYSTAL Jacobs)090 8 0900, Until Discontinued, NURSING: (MAR Hold - Please educate patient and document: Provider: Selma Sparks rdjaimie Avoid using salt substitutes which have Discontinue - a high potassium content (Nu-Salt). Reason: Patient not available/off unit)1007 (MAR Unhold - Provider: Kendrick, Orders Discontinue) 2034 (Given - Provider: Jojo Sullivan) warfarin (COUMADIN) tablet 2 mg 2008 (Given - 2 mg, Oral, AT BEDTIME DAILY, First dose Provider: Niharika west (after last modification) on 12/02/20 CHRYSTAL Barrett) at 2100, Until Discontinued, NURSING: Provide patient with warfarin education leaflet. Do not give with cranberry juice. NOTE: This is a HIGH ALERT Medication. 12/03/2020 12/04/2020 Medication Order 12/02/2020 0443 (Given - New Bag - Provider: Tangela Barrett RN) bumetanide (BUMEX) 12.5 mg in empty IV 0540 (Given - New bag 50 mL IV drip (std conc) (CANCELED) Bag - Provid er: 0.5 mg/hr (2 mL/hr), Intravenous, 50 mL, Vicky hinson, at 2 mL/hr, CONTINUOUS, Starting on Fri RN)0729 (Inf usion 11/29/20 at 2145, Until 12/03/20 at Paused - Provid er: 1313, Loading Dose: 1 mg Std conc = 0.25 Aarti dumont RN mg/mL PROTECT FROM LIGHT - Comment: per IR for paracentesis) sodium chloride 0.9 % TKO infusion Intravenous, at 10 mL/hr, CONTINUOUS, Starting on Fri12/01/20 at 0815, Until Fri12/04/20 at 1312, Infusions ordered as IV piggy back (IVPB) or patient controlled analgesia (BRANCH SALES AND SERVICE REPRESENTATIVE) infusions ma y be infused with as a secondary or Y-sited with a primary infusion of 250 mL 0.9% sodium chloride, or other compatible fluid as applicable, at the rate of 10 mL/hr to flush the line afte r infusion and/or keep the line patent. 12/03/2020 12/04/2020 Medication Order 12/02/20202048 (Given - Provider: Jojo Sullivan) acetaminophen (TYLENOL) tablet 650 mg 0908 (MAR Hold - 650 mg, Oral, EVERY 6 HOURS PRN, Provider: Johanny Sparks rs Starting on Fri11/29/20 at 1532, Until Discontinue - Fri12/04/20 at 1312, Pain non-opioid: Reason: Patien t not may be used alone or in combination with available/o ff opioid analgesia, TOTAL ACETAMINOPHEN unit)1007 (MAR DOSE NOT TO EXCEED 4GM DAILY Unhold - Provider: Kendrick, Orders Discontinue)101 (Given - Provider: Aarti Jacobs, CHRYSTAL)2008 (Given - Provider: Vicky Barrett RN) albumin 25% injection (COMPLETED) 0931 (Given - New INTRA-PROCEDURE MED(CONT), Starting on Bag - Provide r: 12/02/20 at 0931, Until 12/02/20 Rhiannon tomlinson RN) at 0931 hydrOXYzine HCL (ATARAX) tablet 25 mg 0908 (MAR Hold - 25 mg, Oral, THREE TIMES DAILY PRN, Provider: Kendrick, Or romana Starting on Fri11/29/20 at 1602, Until Discontinue - Fri12/04/20 at 1312, Anxiety PO, Itching Reason: Pat ient not PO available/off unit)1007 (MAR Unhold - Provider: Kendrick, Orders Discontinue) hyoscyamine (ANASPAZ) rapid dissolve 0908 (MAY Hold - tablet 0.125 mg Provider: Kendrick, Orders 0.125 mg, Sublingual, EVERY 4 HOURS Discontinue - PRN, Starting on Fri11/29/20 at 1532, Reason: Patient not Until Fri12/04/20 at 1312, Bladder available/off Spasms unit)1007 (MAY Unhold - Provider: Kendrick, Orders Discontinue) 2048 (Given - Provider: Jojo Sullivan) melatonin (MELATIN) tablet 3 mg 0908 (MAY Hold - 3 mg, Oral, AT BEDTIME PRN, Starting on Provider: Kendrick , Orders Fri11/29/20 at 1532, Until Fri12/04/20 at Discontinue - 131, Insomnia Reason: Patient not available/off unit)1007 (MAY Unhold - Provider: Kendrick, Orders Discontinue)2008 (Given - Provider: Vicky Barrett RN) prochlorperazine (COMPAZINE) injection 0908 (MAY Hol d - 10 mg Provider: Kendrick, Orders 10 mg, Intravenous, EVERY 6 HOURS PRN, Discontinue - Starting on Toya 11/30/20 at 0313, Until Reason: Patien t not Fri12/04/20 at 1312, Nausea/Vomiting available/off Injectable, PROTECT FROM LIGHT -- May be unit)1007 ( MAY given undiluted, or each 5mg may be Unhold - Provide r: diluted with 9 mL of NS to facilitate Hadley Sparks titration. Discontinue) senna (SENOKOT) tablet 1 tablet 0908 (MAY Hold - 1 tablet, Oral, DAILY PRN, Starting on Provider: Kendrick , Orders Fri11/29/20 at 1532, Until Fri12/04/20 at Discontinue - 1312, Constipation PO, Hold for loose Reason: Patien t not stools available/off unit)1007 (MAY Unhold - Provider: Kendrick, Orders Discontinue) warfarin, pharmacy to manage 0908 (MAY Hold - PER PHARMACY, 999 doses, Starting on Fri Provider: Yvonne pan, Orders 11/29/20 at 1636, Until Fri12/04/20 at Discontinue - 131, Warfarin Indication: Other Reason: Patient not (specify in comments), INR Goal: INR available/off 2-3, This order is for informational use unit)1007 ( MAY only. See separate order for Unhold - Provider: administration and documentation of Kednrick Orders warfarin. NOTE: This is a HIGH ALERT Discontinue) Medication. documented in this encounter Orders First Ordered Date Medications Ordered That Might Not Have Count Last Ordered Date Been Administered digoxin (LANOXIN) tablet 125 mcg 2 12/04 SODIUM CHLORIDE 0.9 % IV SOLP (Cabinet 1 12/01/2020 Override) metoprolol tartrate tablet 12.5 mg 1 11/2020 diphenhydrAMINE HCL (BENADRYL) injection 1 11/29/2020 25 mg EPINEPHrine PF (ADRENALIN) injection 0.3 1 11/29/2020 mg fluticasone propionate (FLONASE) nasal 1 11/29/2020 spray 1 spray hydrOXYzine HCL (ATARAX) tablet 25 mg 1 11/29/2020 hyoscyamine (ANASPAZ) rapid dissolve 1 0 11/29/2020 tablet 0.125 mg senna (SENOKOT) tablet 1 tablet 1 2020 warfarin (COUMADIN) tablet 4 mg 1 2020 warfarin, pharmacy to manage 1 First Ordered Date EKG Orders Without Results Count Last Ordere d Date ECG 12-LEAD 1 11/29/2020 First Ordered Date Procedures Count Last Ordered Date CONSULT IV THERAPY TEAM 2 11/29/2020 First Ordered Date Diet Count Last Ordered Date DISCHARGE DIET CARDIAC 1 12/04/2020 DISCHARGE DIET FLUID RESTRICTION 1 12/04 First Ordered Date Nursing Count Last Ordered Date DISCHARGE ACTIVITY NORMAL 1 12/04/2020 DISCHARGE CONTACT 1 12/04/2020 DISCHARGE SIGNS/SYMPTOMS 1 12/04/2020 DISCHARGE WARFARIN EDUCATION 1 1 WEIGH PATIENT 1 11/29/2020 First Ordered Date Consult Count Last Ordered Date CONSULT ADULT PALLIATIVE CARE PROVIDER 1 12/01/2020 CONSULT INTERVENTIONAL RADIOLOGY 1 12/01 PHYSICIAN CONSULT HEART FAILURE PHYSICIAN 1 2020 First Ordered Date Admission Count Last Ordered Date ADMIT TO INPATIENT (NO BED REQUEST) 1 First Ordered Date Discharge Count Last Ordered Date DISCHARGE PATIENT NOW 1 12/04/2020 First Ordered Date Equipment Count Last Ordered Date 11/30/2020 HEATING, MACHINE AK WITH PAD 2 1 11/29/2020 PUMP IV CONTROL UNIT W/MODULES 2 021 First Ordered Date Vital Signs Count Last Ordered Date VITAL SIGNS 1 11/29/2020 First Ordered Date Activity Count Last Ordered Date MOBILITY 1 11/29/2020 First Ordered Date SPECIALITY EQUIPMENT Count Last Ordered Date COMMODE STANDARD 300LBS MAX 1 11/29/2020 First Ordered Date Order Set Communication Count Last Ordered D ate VTE DRUG PROPHYLAXIS CONTRAINDICATED 1 0 11/29/2020 First Ordered Date Appointment Request Count Last Ordered Date APPOINTMENT REQUEST: CARDIOLOGY HEART 1 12/04/2020 FAILURE First Ordered Date Intake & Output Count Last Ordered Date INTAKE AND OUTPUT 1 11/29/[address] & Maintain Count Last Ordered Date PLACE AND MAINTAIN SCD 1 11/29/2020 First Ordered Date DME/Home Health Count Last Ordered Date HOME HEALTH/DME 1 12/04/2020 First Ordered Date ADT Patient Update Count Last Ordered Date 11/29/2020 CHANGE SERVICE / LEVEL OF CARE (NO BED 2 11/30/2020 REQUEST) documented in this encounter Additional Health Concerns Assessment Noted Time A fall risk assessment has been completed for the pat ient 12/03/2020 7:40 PM CDT PHQ-2 Depression Total Score: 0 08/24/2020 7:42 AM CDT documented as of this encounter
--- OUTSIDE RECORDS SUMMARY | 2020-12-13 12:03 | XMS REPORT | Encounter Summary ---
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 [facility] On track (10/23/2020 Yes Sheldon, 1:06 [...]
--- OUTSIDE RECORDS SUMMARY | 2020-12-13 12:03 | XMS REPORT | Encounter Summary ---
Author Author [facility] Organization [facility] Address Unknown Phone Unavailable Care Team Providers Care Pipe Layer Helper Name Role Phone Self, Garfield OLVERA PCP Riley Hopson MD 3 Reason for Visit * Reason Onset Date Comments Anticoagulation 11/23/2020 Pt accidently took extra Warfarin, see note Encounter Details Care Team Description Date Type Department Fernie Camargo LPN Anticoagulation (Pt accidently took extr a Warfarin, see note) 11/23/2020 Telephone Cardiology: [facility] [address] [place] [address] [address], [address] [place] [address] Social History Date Tobacco Use Types Packs/Day Years Used Never Smoker Smokeless Tobacco: Never Used Comments Alcohol Use Standard Drinks/Week Not Currently 0 (1 standard drink = 0.6 o z pure alcohol) Sex Assigned at Date Recorded Female 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 Will update anticoag accordingly * Telephone Encounter - Susan Palomino RN - 11/23/2020 5:07 PM CDT Called and spoke to patient. She will hold her warfarin tonight and recheck INR tomorrow. We will clarify with G what her INR goal should be. Patient reports that her weight this week has been steady at 149. She denies a 5 lb weight gain. Encouraged patient to continue taking her BP and weights every day and record t hem. She will report 3 lb overnight weight gain and 5 lb in a week weight gain. Patient reports that she has not been following her sodium restriction, but will attempt to do so starting today. At this time patient has no further questions or concerns. * Telephone Encounter - Susan Palomino RN - 11/23/2020 5:05 PM CDT Images from the original note were not included. Basilia Gaitan, YOUTH PROGRAM DIRECTOR-RESIDENTIAL BUILDER P Cvm Nurse Hf Team Coral Caller: Unspecified (Today, 12:58 PM) Please see inpatient note from 11/04 by Fiordaliza Harding and Dr. Ybarra. Note specifie s patient INR goal 1.6-2.0. If her weight is up 5 pounds and she continues to have excessive hypervolemia sh e needs to come back to the hospital. I offered to put her in on the observati on unit to give her IV diuretics or to put her in the IV heart failure diuretic infusion clinic and she declined both. She can increase her Bumex to 4 mg twic e daily if she refuses to come to the hospital. * Telephone Encounter - Blanche Padilla RN - 11/23/2020 1:25 PM CDT PC to patient to discuss INR/Warfarin. Pt states she "is pretty certain she too k an extra 3mg of Warfarin yesterday". Pt states she bleed in hospital and Ruthann Gaitan APRN set her INR at 1.6-2.0 because of this. She is adamant that she "will bleed with any higher INR then 2.0". Pt refusing to take and warfarin toda y bc she doesn't want to bleed. Pt refuses to take any warfarin today and wants to have INR rechecked by HHRN tomorrow. Pt request RN clarify her INR Goal and warfarin recommendations with RYAN Cui and return her call. Pt also reports her weight is up 5 lbs from 11/16/20- 11/23/20 all weights were flakita en on pt's home scale. Pt denies any edema/swelling or SOA. 11/16/20 145.0 lbs 11/17/20 147.2 11/18/20 148.2 11/19/20 149.6 11/20/20 149.0 11/23/20 150.1 Medications discussed with pt. Pt instructed to take Spironolactone 25mg 30 min prior to Bumex every AM. Pt is agreeable to plan. Message routed to provider for recommendations. * Telephone Encounter - Susan Palomino RN - 11/23/2020 9:11 AM CDT Called HHRN Ruthie she tells me she got local PCP to order stat INR on patient. W e do not know how much "extra" warfarin she took. Last INR on 11/21 INR was 1.7. Ruthie will fax us INR results today. We will complete anticoag encounter at that time and touch base with patient. * Telephone Encounter - Fernie Camargo LPN - 11/23/2020 8:46 AM CDT HHRN Ruthie called from [phone] reporting pt called her this morning concerned because she thinks she may have inadvertently taken an additional warfarin tabl et and is asking for her INR to be checked today. HHRN asks for order to have IN R checked today. Date Weight B/P Pulse Temp 11/23 150 108/69 108 98.9 documented in this encounter Plan of Treatment [...]
--- OUTSIDE RECORDS SUMMARY | 2020-12-13 12:03 | XMS REPORT | Encounter Summary ---
Author Author [facility] Organization [facility] Address Unknown Phone Unavailable Care Team Providers Care Mobile Sales Consultant Name Role Phone Self, Garfield OLVERA PCP Riley Hopson MD 3 Reason for Visit * Reason Onset Date Comments Provider Discussion About 11/24/2020 New INR 1.6- 2.0 Patient Encounter Details Care Team Description Date Type Department Josi Purvis BSN Provider Discussion About Patient (New I NR 1.6-2.0) 11/24/2020 Telephone Cardiology: [facility] [address] [facility] [address], [address] [place] [address] Social History Date Tobacco Use Types Packs/Day Years Used Never Smoker Smokeless Tobacco: Never Used Comments Alcohol Use Standard Drinks/Week Not Currently 0 (1 standard drink = 0.6 o z pure alcohol) Sex Assigned at Date Recorded Female 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 Basilia Gaitan, DITCH RIDER-SUPPORT REPRESENTATIVE P Cvm Nurse Hf Team Coral Caller: Unspecified (Yesterday, 12:58 PM) Please see inpatient note from [...] she refuses to come to the hospital. documented in this encounter Plan of Treatment Not on filedocumented as of this encounter Goals Goal Patient Associated Recent Progress Patient-Stat Aut hor Goal Type Problems ed? [facility] On track (10/23/2020 Yes Sheldon, 1:06 [...]
--- OUTSIDE RECORDS SUMMARY | 2020-12-13 12:03 | XMS REPORT | Encounter Summary ---
Author Author [facility] Organization [facility] Address Unknown Phone Unavailable Care Team Providers Care Diver Tender Name Role Phone Self, Garfield OLVERA PCP Riley Hopson MD 3 Reason for Referral * Radiology Services (Routine) Referred By Contact Referred To Contact Status Reason Specialty Diagnoses / Procedures Jeanette Garcia APRN-TWYLA [address] [address] New Request Radiology Diagnoses Other cirrhosis of liver (HCC) P rocedures US ABDOMEN LIMITED Electronically signed by Jeanette Garcia APRN-TWYLA at Encounter Details Care Team Description Date Type Department Allison Marti MD [address] [facility] [id number] [place] [address] [phone] Jeanette Garcia APRN-NP [address] [address] [phone] Other cirrhosis of liver (HCC) (Primary Dx) 12/07/2020 Office Visit Transplant: Main [facility], [facility] [address] [facility] [address], [address] [place] [address] Social History Date Tobacco Use Types Packs/Day Years Used Never Smoker Smokeless Tobacco: Never Used Comments Alcohol Use Standard Drinks/Week Not Currently 0 (1 standard drink = 0.6 o z pure alcohol) Sex Assigned at Date Recorded Female 06/01/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 documented as of this encounter Last Filed Vital Signs Reading Time Taken Comments Vital Sign 105/63 12/07/2020 3:19 PM CDT Blood Pressure 72 12/07/2020 3:19 PM CDT Pulse 36.9 C (98.4 F) 12/07/2020 3:19 PM CDT Temperature 18 12/07/2020 3:19 PM CDT Respiratory Rate 97% 12/07/2020 3:19 PM CDT Oxygen Saturation - - Inhaled Oxygen Concentration 61.7 kg (136 lb) 12/07/2020 3:19 PM CDT Weight 157.5 cm (5' 2") 12/07/2020 3:19 PM CDT Height 24.87 12/07/2020 3:19 PM CDT Body Mass Index documented in [...] this encounter Patient Instructions * Patient Instructions* Soledad Garcia RN - 12/07/2020 3:30 PM CDT Tumbling And Rolling Supervisor Please: Schedule next appt with Jeanette in 6 mo in person LTX Schedule US limited same day Things discussed at today's visit: Fatigue and muscle wasting are common complaints in patients with liver dise ase. Cardiology is in charge of the diuretics. We suggest Tylenol for pain, no more than 2,000 mg daily. Avoid all NSAIDS, Ibuprofen, Advil, Aleve and Naproxen, due to the risk it can cause your kidneys. We will get imaging every 6 months to continue to screen for liver cancer. W ith Cirrhosis, it places you at a greater risk for developing liver cancer. No worrisome lesions or masses suggestive of liver cancer seen on recent ult rasound. Let us know when you feel you need another belly drain. Let us know if you experience shortness of breath. Fluid can move up around the lungs. We would like for you to follow a low sodium diet, no more than 2,000 mg daily. Try to avoid fast food, frozen foods and processed foods. We would like for you to eat a quality source of protein at each meal. Quali ty sources are fish, lean red meat, turkey, chicken, beans, nuts, and eggs. You may also try to incorporate protein drinks like boost, ensure or carnation insta nt breakfast. Repeat EGD (upper scope) and colonoscopy next spring Pain medicine is not a good idea. It will slow the GI tract down and perpetu ate the problem you are having. If you have any outside procedures or labs, please call our office and let us kn ow so we can request these records. Please call the office at [phone] if you have any questions or concerns. RYAN Cote MD Allison Kinkade, CHRYSTAL Garcia, RN documented in this encounter Plan of Treatment Order Schedule Name Type Priority Associated Diag noses Expected: 06/06/2021 (Approximate), Expi res: 12/07/2021 US ABDOMEN LIMITED Imaging Routine Other cirrh osis of liver (HCC) documented as of this encounter Goals Goal Patient Associated Recent Progress Patient-Stat Aut hor Goal Type Problems ed? [facility] On track (10/23/2020 Yes Sheldon, 1:06 PM CDT) CHRYSTAL Singh documented as of this encounter Visit Diagnoses Diagnosis Other cirrhosis of liver (HCC) - Primar y documented in this encounter Additional Health Concerns Assessment Noted Time A fall risk assessment has been completed for the pat ient 12/07/2020 3:19 PM CDT PHQ-2 Depression Total Score: 2 12/07/2020 3:18 PM CDT documented as of this encounter
--- OUTSIDE RECORDS SUMMARY | 2020-12-13 12:03 | XMS REPORT | Encounter Summary ---
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 [facility] On track (10/23/2020 Yes Sheldon, 1:06 [...]
--- OUTSIDE RECORDS SUMMARY | 2020-12-13 12:03 | XMS REPORT | Encounter Summary ---
Author Author [facility] Organization [facility] Address Unknown Phone Unavailable Care Team Providers Care Senior Linux Administrator Name Role Phone Self, Garfield OLVERA PCP Riley Hopson MD 3 Reason for Visit * Reason Comments Labs Only Encounter Details Care Team Description Date Type Department Kathryn Barbosa MA Labs Only 12/06/2020 Documentation Cardiology: [facility] 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 [facility] On track (10/23/2020 Yes Sheldon, 1:06 PM CDT) CHRYSTAL Singh documented as of this encounter Procedures Comments Procedure Name Priority Date/Time Associated Diag nosis PROTIME INR (PT) Routine 12/06/2020 Paroxysmal at rial fibrillation (HCC) documented in this encounter Results * PROTIME INR (PT) (12/06/2020) INR 1.7 (H) 0.8 - 1.4 [facility] Protime 19.8 (H) 12.2 - 14.7 [facility] Specimen Blood - Blood Narrative Performed At This result has an attachment that is n ot available. Performing Organization Address City/State/ZIP Code P shane Number [facility] [address] [place] [address] documented in this encounter Visit Diagnoses Diagnosis Paroxysmal atrial fibrillation (HCC) Atrial fibrillation documented in this encounter Additional Health Concerns Assessment Noted Time A fall risk assessment has been completed for the pat ient 12/03/2020 7:40 PM CDT PHQ-2 Depression Total Score: 0 08/24/2020 7:42 AM CDT documented as of this encounter
--- OUTSIDE RECORDS SUMMARY | 2020-12-13 12:03 | XMS REPORT | Encounter Summary ---
Author Author [facility] Organization [facility] Address Unknown Phone Unavailable Care Team Providers Care Bottle Caser Name Role Phone Self, Garfield OLVERA PCP Riley Hopson MD 3 Encounter Details Care Team Description Date Type Department Fernie Camargo LPN 11/20/2020 Telephone Cardiology: [facility] [address] [facility] [address] [place] [address] Social History Date Tobacco Use Types Packs/Day Years Used Never Smoker Smokeless Tobacco: Never Used Comments Alcohol Use Standard Drinks/Week Not Currently 0 (1 standard drink = 0.6 o z pure alcohol) Sex Assigned at Date Recorded 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 Patient agreeab le to medication changes and labs at OV tomorrow. Will also add POC INR. * Telephone Encounter - Susan Palomino RN - 11/20/2020 12:35 PM CDT Images from the original note were not included. Basilia Gaitan, RYAN-TWYLA P Cvm Nurse Hf Team [place] Caller: Unspecified (Today, 8:49 AM) Also, she needs POC BMP and BNP at visit. Basilia Gaitan, RYAN-STUDENT SERVICES ADVISOR Cvm Nurse Hf Team [place] 30 minutes ago (12:04 PM) Have pt increase Bumex to 3 mg bid until she is seen in visit. Increase potassiu m chloride to 20 meq TID. * Telephone Encounter - Fernie Camargo LPN - 11/20/2020 9:26 AM CDT Pt called on 11/18 reporting swelling in her feet, pt also left 2 messages this A M with update on status. Patient Status patient is an established patient with [facility]. 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 [facility] On track (10/23/2020 Yes Sheldon, 1:06 PM CDT) CHRYSTAL Singh documented as of this encounter Visit Diagnoses Diagnosis Paroxysmal atrial fibrillation (HCC) - Primary Atrial fibrillation Chronic heart failure with preserved ej ection fraction (HCC) Severe tricuspid regurgitation Diseases of tricuspid valve History of endocarditis Personal history of other diseases of c irculatory system Chronic anticoagulation Long-term (current) use of anticoagulan ts documented in this encounter Additional Health Concerns Assessment Noted Time A fall risk assessment has been completed for the pat ient 11/15/2020 8:15 AM CDT PHQ-2 Depression Total Score: 0 08/24/2020 7:42 AM CDT documented as of this encounter
--- OUTSIDE RECORDS SUMMARY | 2020-12-13 12:03 | XMS REPORT | Encounter Summary ---
Author Author [facility] Organization [facility] Address Unknown Phone Unavailable Care Team Providers Care Traffic Officer Name Role Phone Self, Garfield OLVERA PCP Riley Hopson MD 3 Reason for Referral * Consult, Test & Treat (Routine) Referred By Contact Referred To Contact Status Reason Specialty Diagnoses / Procedures Basilia Sequeira, RYAN-CLOTH WINDER [address] [address] Pending Review Diagnoses Acute on chronic heart failure with preserved ejection fraction (HCC) Aortic valve prosthesis present P rocedures REQUEST FOR CARDIOLOGY APPOINTMENT Electronically signed by Basilia CATALAN at Reason for Visit * Reason Comments Post-hospital Follow Up Heart Failure * Consultation (Discharge Pending) Referred By Contact Referred To Contact Status Reason Specialty Diagnoses / Procedures Mark Manuel DO [address] [place] [address] [address] [address] [facility] [address] [address], [address] [place] [address] Pending Review Cardiology Procedures APPOINTMENT REQUEST: CARDIOLOGY HEART FAILURE Encounter Details Care Team Description Date Type Department Basilia Sequeira, GERMAN TUTOR-CLOTH WINDER [address] [address] [phone] Post-hospital Follow Up; Heart Failure 11/21/2020 Office Visit Cardiology: [facility] 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 documented as of this encounter Last Filed Vital Signs Reading Time Taken Comments Vital Sign 104/60 11/21/2020 8:16 AM CDT Blood Pressure 92 11/21/2020 8:16 AM CDT Pulse - - Temperature - - Respiratory Rate 98% 11/21/2020 8:16 AM CDT Oxygen Saturation - - Inhaled Oxygen Concentration 68.7 kg (151 lb 6.4 oz) 11/21/2020 8:16 AM CDT Weight 157.5 cm (5' 2") 11/21/2020 8:16 AM CDT Height 27.69 11/21/2020 8:16 AM CDT Body Mass Index documented in [...] this encounter Patient Instructions * Patient Instructions* Kathryn Barbosa MA - 11/21/2020 8:30 AM CDT Thank you for coming to [facility]. Your instructions tod ay: 1. Recommendations: We will give you Bumex 2 mg IV in the clinic today along wi th 40 mEq of potassium chloride p.o. Please restart spironolactone 25 mg daily. Continue Bumex 3 mg twice a day and potassium 3 of the 20 meq tabs daily. Daina colon contact us on Friday, 11/24, with an update on your home weights and symptoms. Have BMP drawn at follow-up visit on 11/29. 2. Next follow up appointment on 11/29 at 1130 with Basilia Sequeira at our [facility] location off of [address] For up to date information on the [...] symptoms o In a medical emergency, call [phone] or go to the nearest emergency room. If you wish to contact us, please call and leave a message for the heart failure nurses at [phone]. For urgent issues after hours, on the weekends or holidays, please call to be connected with the nurse or doctor stoker installation mechanic. To schedule or change an appointment call [phone]. MD Basilia Jeffers, RYAN Watkins RN [facility] at [facility] Your Heart Failure Symptom Awareness and [...] symptoms, please call the heart failure nurses: [phone] Increased shortness of breath with activity Weight gain of 3 pounds in one day or 5 pounds in a week Increased swelling in your ankles or legs Increased swelling in your stomach Increasing fatigue You may need an adjustment of your medications. Red Zone These are urgent symptoms. Please call the heart failure nurses: [phone] Shortness of breath at rest or waking up at night feeling short of breath or co ughing Increased number of pillows used or needing to sit upright to sleep Chest tightness at rest Dizziness, lightheadedness or feeling faint You need to schedule an appointme nt Emergency Zone call [phone] Worsening chest tightness or pain that is not rel ieved by medication Severe shortness of breath and a cough with pink, frothy sputum documented in this encounter Ordered Prescriptions Start Date End Date Prescription Sig Dispensed Refills 11/21/2020 11/24/2020 bumetanide (BUMEX) 1 mg Take three 120 tablet 1 tabletIndications: Acute tablets by on chronic heart failure mouth twice with preserved ejection daily. fraction (HCC), Aortic valve prosthesis present 11/21/2020 12/04/2020 spironolactone Take one 30 tablet 11 (ALDACTONE) 25 mg tablet by tabletIndications: Acute mouth daily. on chronic heart failure Take with with preserved ejection food. fraction (HCC), Aortic valve prosthesis present documented in this encounter Progress Notes * Basilia Sequeira APRN-NP - 11/21/2020 8:30 AM CDT Date of Service: 11/21/2020 Zaria Paulson is a 60 y.o. female. She is followed by Dr. Longo. HPI Zaria Paulson is seen today in a post hospital visit. She has chronic heart failure with preserved ejection fraction, nonischemic cardiomyopathy, s/p aortic valve replacement x3 (on chronic anticoagulation for mechanical valve), parox ysmal atrial fibrillation, hypertension, previous endocarditis, iron deficiency anemia -received IV iron, chronic kidney disease, hypothyroidism, depression, no n-Hodgkins lymphoma and cirrhosis (etiology secondary to chemotherapy from [facility] with non-Hodgkin lymphoma). She was recently hospitalized at [facility] with GI bleed and nontraumatic rectus hematoma. She was transferred from [facility] [place] for left rectus muscle hematoma and active [...] in symptoms of her urge incontinence. 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 Patient contacted our office on 11/20/2020 reporting increased weight, abdominal distention, lower extremity edema. She was instructed to increase Bumex to 3 mg twice daily and potassium chloride to 20 mEq 3 times daily. Zaria Paulson presents today accompanied by [...] pink-ting ed urine at this point. Vitals: 11/21/20 0816 BP: 104/60 BP Source: Arm, Right Upper Patient Position: Sitting Pulse: 92 SpO2: 98% Weight: 68.7 kg (151 lb 6.4 oz) Height: 1.575 m (5' 2") PainSc: Zero Body mass index is 27.69 kg/m. Past Medical History Patient Active Problem List Diagnosis Date Noted Hematoma of left flank 11/15/2020 Hematoma of right flank 11/15/2020 Hematuria 11/15/2020 Vaginal bleeding 11/15/2020 Nontraumatic rectus hematoma 11/04/2020 Hypoalbuminemia 10/23/2020 LEONORA (acute kidney injury) (HCC) 10/21/2020 GI bleeding 10/20/2020 Cirrhosis ([facility]) 09/07/2020 Non-ischemic cardiomyopathy (HCC) 09/07/2020 Paroxysmal atrial [...] Constitutional: Negative. HENT: Negative. Eyes: Negative. Cardiovascular: Positive for leg swelling. Respiratory: Negative. Endocrine: Negative. Hematologic/Lymphatic: Negative. Skin: Negative. Musculoskeletal: Negative. Gastrointestinal: Positive for bloating. Genitourinary: Negative. Neurological: Negative. Psychiatric/Behavioral: Negative. Allergic/Immunologic: Negative. All other systems reviewed and are negative. Physical Exam General Appearance: In NAD Skin: warm, dry Neck Veins: 12 cm JVP, + HJR - severe TR Respiratory Effort: breathing comfortably, no respiratory distress Auscultation/Percussion: lungs clear to auscultation, faint right lower lobe ral es, no rhonchi, no wheezing Cardiac Rhythm: regular rhythm and normal rate Cardiac Auscultation: S1, S2 normal, no rub, no definite S3 or S4 Murmurs: 3-4/6 murmur Lower Extremity Edema: 3+ bilat lower extremity edema Abdominal Exam: soft, non-tender, bowel sounds normal Orientation: oriented to time, [...] Encounter Diagnoses Name Primary? Acute on chronic heart failure with preserved ejection fraction (HCC) Yes Paroxysmal atrial fibrillation (HCC) Aortic valve prosthesis present Severe tricuspid regurgitation Chronic anticoagulation Iron deficiency anemia due to chronic blood loss Chronic hyponatremia Gastrointestinal hemorrhage, unspecified gastrointestinal hemorrhage type Assessment and Plan Acute on chronic Heart Failure with Preserved Ejection Fraction: -Echo on05/22/2020 showed an EF of 60%. -Today, she describes NYHA Functional ClassIVsymptoms, appears hypervolemic by exam. Her weight was 145 pounds the day after hospital discharge and is u p to 149.4 pounds on her home scale. She has had increasing lower extremity rubi ma and abdominal distention. -Previously scheduled for [facility] on 10/20 but was hospitalized at the time, a nd now not a good candidate due to recent bleeding. > We will give Bumex 2 mg IV in the clinic today with 40 mEq p.o. potassium chloride replacement. I did offer admission on observation for IV diuresis versus heart failure infusion clinic and the patient declined due to transportation. >GDMT:Asked her to restart spironolactone 25 mg daily (this was discontinued during hospitalization late September due to LEONORA). Continue Fuanx1pi twice daily (just increased yesterday, 11/20), continue potassium chloride 30 mEq daily. > Patient will call on 11/24 with an update on her home weights and symptoms > Follow-up BMP when she returns on 11/29. Atrial Fibrillation (Paroxysmal)/ Atrial Tachycardia/ s/p AorticValveReplace ment: -She is onmetoprolol tartrateand denies palpitations. -She is onwarfarinoral anticoagulation. INR goal adjusted to 1.62.0 with recent bleeding.Her anticoagulation is managed by Dr. Longo. > INR today is 1.7 and she will be given further instructions by PT/INR staff Severe TricuspidRegurgitation: -Her echo on 10/21/2020 showed severe tricuspid regurgitation, PA pressure 79 mmH g. >Plan is to continue to monitor with hopes that reducing her volume overload will improve her tricuspid regurgitation. Chronic Kidney Disease - StageIII: Fronek hyponatremia -Her creatinine on 11/15/2020 was 1.07. > BMP reveals creatinine 1.2, BUN 15, sodium 131, potassium 3.7, chloride 97. > Repeat BMP on 11/29 at follow-up visit Cirrhosis She follows with hepatology. > Continue [...] during hospitalization 11/04-11/15. INR goal reduced to 1.62.0. Hemoglobin 8.2 on discharge 11/15 > CBC today Hematuria Urinary retention Seen by urology during recent hospitalization with plan for outpatient CT urogra m and cystoscopy. > Follow-up appointment on 12/22/[address] urogram and cystoscopy Zaria Paulson will follow-up in the heart failure clinic on 11/29 with myself, Basilia Sequeira NP, with lab at that time. She has been encouraged to contact us prior to the next appointment with any questions, concerns, or worsening symptom s. Thank you for allowing me to participate in the care of this patient. If you hav e any questions please do not hesitate to contact our office. RACHELL Pearson-BC, MSN, CHFN | CVM Advance Practice Provider Heart Failure ARSALAN Coordinator [facility] | | [email or web address] [address] [facility], [address], [place] [address] Ramo Lamb Total Time Today was 55 minutes in the following activities: Preparing to see e patient, Obtaining and/or reviewing separately obtained history, Performing a medically appropriate examination and/or evaluation, Counseling and educating e patient/family/caregiver, Ordering medications, tests, or procedures, Document ing clinical information in the electronic or other health record and Independen tly interpreting results (not separately reported) and communicating results to the patient/family/caregiver Current Medications (including today's revisions) ascorbic acid (VITAMIN C) 500 mg tablet Take 500 mg by mouth daily. bumetanide (BUMEX) 1 mg tablet Take three tablets by mouth twice daily. calcium carbonate [...] mouth daily to equal 4m g dose. documented in this encounter Miscellaneous Notes * Addendum Note - Taisha Botello RN - 11/21/2020 8:30 AM CDT Addended by: TAISHA BOTELLO on: 11/23/2020 11:24 AM Modules accepted: Orders * Addendum Note - Basilia Sequeira APRN-NP - 11/21/2020 8:30 AM CDT Addended by: BASILIA SEQUEIRA on: 11/21/2020 06:15 PM Modules accepted: Orders * Addendum Note - Vaibhav Fernandez RN - 11/21/2020 8:30 AM CDT Addended by: VAIBHAV FERNANDEZ on: 11/21/2020 04:03 PM Modules accepted: Orders * Addendum Note - Saundra Milligan - 11/21/2020 8:30 AM CDT Addended by: SAUNDRA MILLIGAN on: 11/21/2020 10:35 AM Modules accepted: Orders * Addendum Note - Taisha Botello RN - 11/21/2020 8:30 AM CDT Addended by: TAISHA BOTELLO on: 11/21/2020 09:53 AM Modules accepted: Orders * Addendum Note - Buffy Gonsalves BSN - 11/21/2020 8:30 AM CDT Addended by: BUFFY GONSALVES on: 11/21/2020 09:42 AM Modules accepted: Orders documented in this encounter Plan of Treatment Not on filedocumented as of this encounter Goals Goal Patient Associated Recent Progress Patient-Stat Aut hor Goal Type Problems ed? 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 heart 9:39 AM CDT failure with preserved ejection fraction (HCC) Aortic valve prosthesis present Iron deficiency anemia due to chronic blood loss HC CHEM 8 PANEL, POC 11/21/2020 Acute on chronic heart 8:32 AM CDT failure with preserved ejection fraction (HCC) Aortic valve prosthesis present HC BNP POC 11/21/2020 Acute on chronic he art 8:32 AM CDT failure with preserved ejection fraction (HCC) Aortic valve prosthesis present HC PT(INR) POC 11/21/2020 Acute on chronic he art 8:24 AM CDT failure with preserved ejection fraction (HCC) Aortic valve prosthesis present documented in this encounter Results * CBC (11/21/2020 9:39 AM CDT) White Blood 8.2 4.5 - 11.0 K/UL [...] P shane Number [facility] [address] [place] [address] * BNP POC ER (11/21/2020 8:32 AM CDT) BNP POC 806.0 (H) 0 - 100 PG/ML [facility] Specimen Performing Organization Address City/[facility]/ZIP Code P shane Number [facility] [address] [place] [address] * POC BASIC METABOLIC PANEL (BMP) (11/21/2020 8:32 AM CDT) Sodium-POC 131 (L) 137 - 147 MMOL/L [facility] Potassium-POC 3.7 3.5 - 5.1 MMOL/L [facility] Chloride, POC 97 (L) 98 - 110 MMOL/L [facility] CO2, POC 19 (L) 21 - 30 MMOL/L [facility] Anion Gap, POC 20 (H) 3 - 12 [facility] Glucose, POC 108 (H) 70 - 100 MG/DL [facility] Bun, POC 15 7 - 25 MG/DL [facility] Creatinine, POC 1.2 (H) 0.4 - 1.00 MG/DL [facility] Ionized 1.07 1.0 - 1.3 MMOL/L [facility] Calcium-POC Specimen Performing Organization Address City/[facility]/ZIP Code P shane Number [facility] [address] [place] [address] * POC PT/INR (11/21/2020 8:24 AM CDT) INR POC 1.7 (H) 0.8 - 1.2 [facility] Specimen Performing Organization Address City/[facility]/ZIP Code P shane Number [facility] [address] [place] [address] documented in this encounter Visit Diagnoses Diagnosis Acute on chronic heart failure with pre served ejection fraction (HCC) - Primary Paroxysmal atrial fibrillation (HCC) Atrial fibrillation Aortic valve prosthesis present Heart valve replaced by other means Severe tricuspid regurgitation Diseases of tricuspid valve Chronic anticoagulation Long-term (current) use of anticoagulan ts Iron deficiency anemia due to chronic b lood loss Iron deficiency anemia secondary to blo od loss (chronic) Chronic hyponatremia Hyposmolality and/or hyponatremia Gastrointestinal hemorrhage, unspecifie d gastrointestinal hemorrhage type documented in this encounter Administered Medications Action Date Dose Rate Site Medication Order MAR Action 11/21/2020 10:30 AM CDT 2 mg bumetanide (BUMEX) injection 2 mg Given 2 mg, Intravenous, ONCE, 1 dose, On Fri11/23/20 at 1215, PROTECT FROM LIGHT 11/21/2020 9:50 AM CDT 40 mEq potassium chloride SR (K-DUR) tablet 40 Given mEq 40 mEq, Oral, ONCE, 1 dose, On Fri11/21/20 at 1000, - Tablet may be dispersed in water. Place tab in 30 mL of water for 40-60 seconds. - Gently swirl until fully dispersed. If particles remain after admin, add small amount of water and admin remaining content. - DO NOT CRUSH. Tablet may be split in half. Give with meal or full glass of water documented in this encounter Discontinued Medications Start Date End Date Medication Sig Discontinue Reason 11/15/2020 11/21/2020 bumetanide (BUMEX) 1 mg Take two tablet tablets by mouth twice daily. documented as of this encounter Historical Medications * This list may reflect changes made after this encounter. Start Date End Date Medication Sig Dispensed Refills 11/17/2020 11/30/2020 cefdinir (OMNICEF) 300 mg Take 1 0 capsuleIndications: Acute capsule by on chronic heart failure mouth twice with preserved ejection daily. fraction (HCC), Aortic valve prosthesis present added in this encounter Orders First Ordered Date Medications Ordered That Might Not Have Count Last Ordered Date Been Administered bumetanide (BUMEX) injection 2 mg 1 04/2020 bumetanide (0-40 kg) IVP 2 mg 1 11/22/19 21 First Ordered Date Appointment Count Last Ordered Date REQUEST FOR CARDIOLOGY APPOINTMENT 1 10/2020 documented in this encounter Additional Health Concerns Assessment Noted Time A fall risk assessment has been completed for the pat ient 11/21/2020 8:16 AM CDT PHQ-2 Depression Total Score: 0 08/24/2020 7:42 AM CDT documented as of this encounter
--- OUTSIDE RECORDS SUMMARY | 2020-12-13 12:03 | XMS REPORT | Encounter Summary ---
Author Author [facility] Organization [facility] Address Unknown Phone Unavailable Care Team Providers Care Framing Specialist Name Role Phone Self, Garfield OLVERA PCP Riley Hopson MD 3 Reason for Visit * Reason Onset Date Comments Post-hospital Follow Up 11/16/2020 72 hour post h ospital follow up call Encounter Details Care Team Description Date Type Department Mariely Chan LPN Post-hospital Follow Up (72 hour post ho spital follow up call) 11/16/2020 Telephone Cardiology: [facility] [address] [place] [address] [address], [address] [place] [address] Social History Date Tobacco Use Types Packs/Day Years Used Never Smoker Smokeless Tobacco: Never Used Comments Alcohol Use Standard Drinks/Week Not Currently 0 (1 standard drink = 0.6 o z pure alcohol) Sex Assigned at Date Recorded 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 Transportation Yes [facility]) [phone] Fax) [phone] Medications Pt states she has all her medications and has no questions at this time. Diet 200 mg cholesterol, 2 G Na, 1.5 L fluid restriction Scale/Weight Yes, first morning weight today was 145.0 Signs and Symptoms Pt reports the following symptoms: Pt states she did develop some swelling in her legs from the ride home yesterday . States KC is not "too bad right now". She is elevating today. Temp for fe colon was 99.0. nurse told her to continue monitoring temp and to watch for s/s UTI. Pt did check her INR today at [facility] [place]. She took 4 mg warfarin last night and will take 4 mg daily until further orders. She has 5 mg on y. Pt verbalized understanding of signs and symptoms of HF and when to contact a pr ovider or seek immediate assistance at the ER. Intervention(s) Advised pt to monitor temps and notify PCP for any s/s of UTI. I.e. pain/burning , increased confusion, balance impairment. Pt educated on the importance of weighing [...] your follow up appointment and bring your [facility] ght logs, B/P logs, and medication list with you to your appointment. Call us at [phone] if you have any questions. Plan of Care Continued education needed for heart failure symptom management and when to cont act our office. documented in this encounter Plan of Treatment Not on filedocumented as of this encounter Goals Goal Patient Associated Recent Progress Patient-Stat Aut hor Goal Type Problems ed? [facility] On track (10/23/2020 Yes Sheldon, [...]
--- OUTSIDE RECORDS SUMMARY | 2020-12-13 12:03 | XMS REPORT | Encounter Summary ---
Author Author [facility] Organization [facility] Address Unknown Phone Unavailable Care Team Providers Care Sugar Refiner Name Role Phone Self, Garfield OLVERA PCP Riley Hopson MD 3 Reason for Visit * Reason Comments Labs Only INR Encounter Details Care Team Description Date Type Department Jc, Beckie Labs Only (INR) 11/23/2020 Documentation Cardiology: [facility] 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 [facility] On track (10/23/2020 Yes [place], 1:06 PM CDT) CHRYSTAL Singh documented as of this encounter Procedures Comments Procedure Name Priority Date/Time Associated Diag nosis PROTIME INR (PT) Routine 11/23/2020 Chronic heart failure with preserved ejection fraction (HCC) documented in this encounter Results * PROTIME INR (PT) (11/23/2020) INR 2.3 (H) 0.8 - 1.4 [facility] Specimen Blood - Blood Narrative Performed At This result has an attachment that is n ot available. Performing Organization Address City/State/ZIP Code P shane Number [facility] [address] [place] [address] documented in this encounter Visit Diagnoses Diagnosis Nontraumatic rectus hematoma Nontraumatic hematoma of soft tissue Aortic valve prosthesis present Heart valve replaced by other means Chronic heart failure with preserved ej ection fraction (HCC) documented in this encounter Additional Health Concerns Assessment Noted Time A fall risk assessment has been completed for the pat ient 11/21/2020 8:16 AM CDT PHQ-2 Depression Total Score: 0 08/24/2020 7:42 AM CDT documented as of this encounter
--- OUTSIDE RECORDS SUMMARY | 2020-12-13 12:03 | XMS REPORT | Encounter Summary ---
Author Author [facility] Organization [facility] Address Unknown Phone Unavailable Care Team Providers Care Senior Economist Name Role Phone Self, Garfield OLVERA PCP Riley Hopson MD 3 Reason for Visit * Reason Onset Date Comments Follow-up Phone Call 11/24/2020 Encounter Details Care Team Description Date Type Department Josi Purvis BSN Follow-up Phone Call 11/24/2020 Telephone Cardiology: [facility] [address] [place] [address] 1, [address] [place] [address] Social History Date Tobacco Use Types Packs/Day Years Used Never Smoker Smokeless Tobacco: Never Used Comments Alcohol Use Standard Drinks/Week Not Currently 0 (1 standard drink = 0.6 o z pure alcohol) Sex Assigned at Date Recorded Female 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 fraction (HCC), Aortic valve prosthesis present documented in this encounter Miscellaneous Notes * Telephone Encounter - Josi Purvis BSN - 11/24/2020 1:49 PM CDT Images from the original note were not included. Basilia Gaitan, MACHINE SHOP HELPER-GAMING HOST P Cvm Nurse Hf Team Coral Caller: [...] she refuses to come to the hospital. Call to pt for follow up, she states feeling well, declines to go to hospital, h as gained 3# in 24 hrs per Basilia pt can take Bumex 4 mg BID pt verb understandi ng. Pt denies chest pain, SOA, states bilat feet and lower legs with increased edema, abd slt bloated. Advised pt per Basilia SIMON with excessive weight and fluid ( excessive hypervolemia) she needs to come back to the hospital, pt continues to decline. Advised pt if weight continues to increase, edema increase d, SOA develops to go to ER pt verb understanding. documented in this encounter Plan of Treatment Not on filedocumented as of this encounter Goals Goal Patient Associated Recent Progress Patient-Stat Aut hor Goal Type Problems ed? [facility] On track (10/23/2020 Yes Sheldon, 1:06 PM CDT) CHRYSTAL Singh documented as of this encounter Visit Diagnoses Diagnosis Acute on chronic heart failure with pre served ejection fraction (HCC) Aortic valve prosthesis present Heart valve replaced by other means documented in this encounter Discontinued Medications Start Date End Date Medication Sig Discontinue Reason 11/21/2020 11/24/2020 bumetanide (BUMEX) 1 mg Take three tabletIndications: Acute tablets by on chronic heart failure mouth twice with preserved ejection daily. fraction (HCC), Aortic valve prosthesis present documented as of this encounter Additional Health Concerns Assessment Noted Time A fall risk assessment has been completed for the pat ient 11/21/2020 8:16 AM CDT PHQ-2 Depression Total Score: 0 08/24/2020 7:42 AM CDT documented as of this encounter
--- OUTSIDE RECORDS SUMMARY | 2020-12-13 12:03 | XMS REPORT | Encounter Summary ---
Author Author [facility] Organization [facility] Address Unknown Phone Unavailable Care Team Providers Care Batch Or Continuous Still Operator Name Role Phone Isaac, Garfield OLVERA PCP Riley Hopson MD 3 Reason for Visit * Reason Comments Anticoagulation INR 2.9 Encounter Details Care Team Description Date Type Department Susan Palomino RN Anticoagulation (INR 2.9) 11/28/2020 Anticoagulation Cardiology: [facility] [address] [place] [address] 1, [address] [place] [address] Social History Date Tobacco Use Types Packs/Day Years Used Never Smoker Smokeless Tobacco: Never Used Comments Alcohol Use Standard Drinks/Week Not Currently 0 (1 standard drink = 0.6 o z pure alcohol) Sex Assigned at Date Recorded Female 06/01/2020 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 Called and reviewed INR goal, she is agreeable to [facility]'s INR goal. We will t ry to keep patient as close as we can to 2.0. Educated patient on s/s of bleedjean-pierre g. We will change her warfarin schedule to 4 mg everyday as her last 7 day avermagalys ge has been 28 mgs. Patient is agreeable to that plan and will check INR next Mo nday. Patient has OV with PE tomorrow. documented in this encounter Plan of Treatment Not on filedocumented as of this encounter Goals Goal Patient Associated Recent Progress Patient-Stat Aut hor Goal Type Problems ed? [facility] On track (10/23/2020 Yes Sheldon, 1:06 PM CDT) CHRYSTAL Singh documented as of this encounter Visit Diagnoses Diagnosis Chronic anticoagulation - Primary Long-term (current) use of anticoagulan ts Paroxysmal atrial fibrillation (HCC) Atrial fibrillation Hx of mechanical aortic valve replaceme nt Heart valve replaced by other means documented in this encounter Additional Health Concerns Assessment Noted Time A fall risk assessment has been completed for the pat ient 11/21/2020 8:16 AM CDT PHQ-2 Depression Total Score: 0 08/24/2020 7:42 AM CDT documented as of this encounter
--- OUTSIDE RECORDS SUMMARY | 2020-12-13 12:03 | XMS REPORT | Encounter Summary ---
Author Author [facility] Organization [facility] Address Unknown Phone Unavailable Care Team Providers Care Hand Flatwork Finisher Name Role Phone Isaac, Garfield OLVERA PCP Riley Hopson MD 3 Encounter Details Care Team Description Date Type Department Wisam Valencia MD [address] [id number] 12/01/2020 Documentation Oncology: Cancer [address] [address] Social History Date Tobacco Use Types Packs/Day Years Used Never Smoker Smokeless Tobacco: Never Used Comments Alcohol Use Standard Drinks/Week Not Currently 0 (1 standard drink = 0.6 o z pure alcohol) Sex Assigned at Date Recorded Female 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 [facility] On track (10/23/2020 Yes Sheldon, 1:06 PM CDT) CHRYSTAL Singh documented as of this encounter Visit Diagnoses Not on filedocumented in this encounter Additional Health Concerns Assessment Noted Time A fall risk assessment has been completed for the pat ient 12/01/2020 7:50 PM CDT PHQ-2 Depression Total Score: 0 08/24/2020 7:42 AM CDT documented as of this encounter
--- OUTSIDE RECORDS SUMMARY | 2020-12-13 12:03 | XMS REPORT | Encounter Summary ---
Author Author [facility] Organization [facility] Address Unknown Phone Unavailable Care Team Providers Care Industrial Order Clerk Name Role Phone Self, Garfield OLVERA PCP Riley Hopson MD 3 Encounter Details Care Team Description Date Type Department Yesica Oliver MA 11/29/2020 Patient Profile [facility] 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 [facility] On track (10/23/2020 Yes Sheldon, 1:06 [...]
--- OUTSIDE RECORDS SUMMARY | 2020-12-13 12:04 | XMS REPORT | Encounter Summary ---
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 [facility] On track (10/23/2020 Yes Sheldon, 1:06 PM CDT) CHRYSTAL Singh documented as of this encounter Visit Diagnoses Not on filedocumented in this encounter Additional Health Concerns Assessment Noted Time A fall risk assessment has been completed for the pat ient 11/04/2020 8:44 PM CDT PHQ-2 Depression Total Score: 0 08/24/2020 7:42 AM CDT documented as of this encounter
--- OUTSIDE RECORDS SUMMARY | 2020-12-13 12:04 | XMS REPORT | Encounter Summary ---
Author Author [facility] Organization [facility] Address Unknown Phone Unavailable Care Team Providers Care Demand Planning Analyst Name Role Phone Self, Garfield OLVERA PCP Riley Hopson MD 3 Reason for Visit * Reason Comments Anticoagulation INR 2.4 Encounter Details Care Team Description Date Type Department Josi Purvis BSN Anticoagulation (INR 2.4) 11/02/2020 Anticoagulation Cardiology: [facility] [address] [place] [address] [address], [address] [place] [address] Social History Date Tobacco Use Types Packs/Day Years Used Never Smoker Smokeless Tobacco: Never Used Comments Alcohol Use Standard Drinks/Week Not Currently 0 (1 standard drink = 0.6 o z pure alcohol) Sex Assigned at Date Recorded Female 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 [facility] On track (10/23/2020 Yes Sheldon, 1:06 [...]
--- OUTSIDE RECORDS SUMMARY | 2020-12-13 12:04 | XMS REPORT | Encounter Summary ---
Author Author [facility] Organization [facility] Address Unknown Phone Unavailable Care Team Providers Care Clinical Reimbursement Specialist Name Role Phone Isaac, Garfield OLVERA PCP Riley Hopson MD 3 Reason for Visit * Reason Comments Anticoagulation INR 1.6 Encounter Details Care Team Description Date Type Department Josi Purvis BSN Anticoagulation (INR 1.6) 10/30/2020 Anticoagulation Cardiology: [facility] [address] [place] [address] [address], [address] [place] [address] Social History Date Tobacco Use Types Packs/Day Years Used Never Smoker Smokeless Tobacco: Never Used Comments Alcohol Use Standard Drinks/Week Not Currently 0 (1 standard drink = 0.6 o z pure alcohol) Sex Assigned at Date Recorded Female 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
--- OUTSIDE RECORDS SUMMARY | 2020-12-13 12:04 | XMS REPORT | Encounter Summary ---
Author Author [facility] Organization [facility] Address Unknown Phone Unavailable Care Team Providers Care Central Service Tech Name Role Phone Self, Garfield OLVERA PCP Riley Hopson MD 3 Encounter Details Care Team Description Date Type Department Fernie Camargo LPN 10/30/2020 Telephone Cardiology: [facility] [address] [facility] [address], [address] [place] [address] Social History Date Tobacco Use Types Packs/Day Years Used Never Smoker Smokeless Tobacco: Never Used Comments Alcohol Use Standard Drinks/Week Not Currently 0 (1 standard drink = 0.6 o z pure alcohol) Sex Assigned at Date Recorded Female 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 Spoke with pt and she is not having any SOA, swelling or cardiac symptoms. Pt will contact PCP abo ut nausea. Pt will also go have labs done at [facility] in [place]. Fax , standing INR order faxed at this time. documented in this encounter Plan of Treatment Order Schedule Name Type Priority Associated Diag noses Twice a Week Auto for 99 Occurrences sta rting 10/30/2020 until 10/30/2021, 3 completed PROTIME INR (PT) Lab Routine Chronic heart failure with preserved ejection fraction (HCC) documented as of this encounter Goals Goal Patient Associated Recent Progress Patient-Stat Aut hor Goal Type Problems ed? [facility] On track (10/23/2020 Yes Sheldon, 1:06 PM CDT) CHRYSTAL Singh documented as of this encounter Results * PROTIME INR (PT) (11/29/2020 10:40 AM CDT) INR 4.1 (H) 0.8 - 1.2 MAIN LAB Specimen Blood Performing Organization Address City/[facility] P shane Number MAIN LAB [address] [place] [address] * PROTIME INR (PT) (11/28/2020) INR 2.9 (H) 0.8 - 1.4 MAIN LAB Protime 30.1 (H) 12.2 - 14.7 [facility] MAIN LAB Specimen Blood - Blood Narrative Performed At This result has an attachment that is n ot available. Performing Organization Address City/State/ZIP Code P shane Number MAIN LAB [address] [place] [address] * PROTIME INR (PT) (11/23/2020) INR 2.3 (H) 0.8 - 1.4 [facility] MAIN LAB Specimen Blood - Blood Narrative Performed At This result has an attachment that is n ot available. Performing Organization Address City/State/ZIP Code P shane Number MAIN LAB [address] [place] [address] documented in this encounter Visit Diagnoses Diagnosis Chronic heart failure with preserved ej ection fraction (HCC) - Primary documented in this encounter Additional Health Concerns Assessment Noted Time A fall risk assessment has been completed for the pat ient 10/26/2020 8:00 AM CDT PHQ-2 Depression Total Score: 0 08/24/2020 7:42 AM CDT documented as of this encounter
--- OUTSIDE RECORDS SUMMARY | 2020-12-13 12:04 | XMS REPORT | Encounter Summary ---
Author Author [facility] Organization [facility] Address Unknown Phone Unavailable Care Team Providers Care Statistician Name Role Phone Self, Garfield OLVERA PCP Riley Hopson MD 3 Reason for Visit * Reason Onset Date Comments Follow-up Phone Call 10/31/2020 Encounter Details Care Team Description Date Type Department Fernie Camargo LPN Follow-up Phone Call 10/31/2020 Telephone Cardiology: [facility] [address] [place] [address] [address], [address] [place] [address] Social History Date Tobacco Use Types Packs/Day Years Used Never Smoker Smokeless Tobacco: Never Used Comments Alcohol Use Standard Drinks/Week Not Currently 0 (1 standard drink = 0.6 o z pure alcohol) Sex Assigned at Date Recorded Female 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 Nithya Madison APRN-PROPERTY DEVELOPER Cvm Nurse Hf Team Coral 1 hour ago (4:46 PM) NM Have her increase her Bumex to 4 mg twice daily x2 days, then resume previous do se. Thanks, Berna Message text My Chart message sent to patient with above recommendations from Berna Madison APRN (pt active on [facility]). Asked for CB or my chart message with questions or conc erns. Provided after hours number if needs to reach cardiology team over weekend . * Telephone Encounter - Fernie Camargo LPN - 11/03/2020 9:02 AM CDT Pt called reporting weight is 139.2 lbs and her abdomen is swollen. Date Weight 11/03 139.2 11/02 137 11/01 136.4 10/31 135 * Telephone Encounter - Josi Purvis BSN - 11/02/2020 12:03 PM CDT Call to pt she states wt gain 4#, had intestinal "flu" For 2 days. Current wt 137# BP 102/60 sats 97%. Pt denies continued loose stools, states has purple br uise with hard lump on side, slt tender to touch. States does not radiate to ab d or back. Pt unaware of trauma to side, has not fallen or "bumped" anything. Pt denies SOA, denies dependent edema, small amt abd bloating. Pt taking all rx med rec reviewed. Advised pt will send Dr Longo message, if he has any recs wi ll call pt back. Pt rigoberto understanding. * Telephone Encounter - Fernie Camargo LPN - 11/02/2020 11:39 AM CDT Pt called reporting her INR. Pt also reports her weight is 137 lbs today and she has some minimal abdominal swelling. Pt says she feels great. * Telephone Encounter - Sherin Mata BSN - 11/01/2020 10:29 AM CDT Called and spoke with pt this morning and inquired as to how she was feeling michael ng that her weight looks to be a little elevated from the date of discharge. Up on d/c pt weight documented as 131.8 and pt reports home weight this am 136.4. She reports BP was good this am at 108/51 and O2 Sats-97%. She was nauseated an d had diarrhea yesterday and she is sure she had a "bug" yesterday but feels muc h better today. She reports still having some diarrhea, however no nausea. She denies any SOA or swelling. I thanked her for calling and told her we would ta lk to her soon after she gets her blood drawn for INR. * Telephone Encounter - Fernie Camargo LPN - 11/01/2020 9:34 AM CDT Pt called reporting weight is 136.4 lbs today. Pt says she feels much better tod ay than yesterday, pt had a stomach ache yesterday. * Telephone Encounter - Fernie Camargo LPN - 10/31/2020 9:44 AM CDT Pt called reporting she weighed 135 lbs today. Pt asymptomatic and does report s he had a sonic cheeseburger yesterday and drank a lot due to AC not working. Pt reports her AC is working and she will watch her fluid and sodium today. Patient Status patient is an established patient with [facility]. Signs and Symptoms No SOA or swelling "I feel comfortable" Medication Review Patient reports taking all prescribed medications as ordered and not missing any doses Date Weight B/P Pulse 10/31 135 documented in this encounter Plan of Treatment Not on filedocumented as of this encounter Goals Goal Patient Associated Recent Progress Patient-Stat Aut hor Goal Type Problems ed? [facility] On track (10/23/2020 Yes Sheldon, 1:06 PM CDT) CHRYSTAL Singh documented as of this encounter Procedures Comments Procedure Name Priority Date/Time Associated Diag nosis HOME INR Routine 11/02/2020 documented in this encounter Results * HOME INR (11/02/2020) INR Home 2.4 OTHER OUTSIDE LAB Specimen Narrative Performed At OTHER OUTSIDE LAB Called in by pt Performing Organization Address City/State/ZIP Code P shane [...]
--- OUTSIDE RECORDS SUMMARY | 2020-12-13 12:04 | XMS REPORT | Encounter Summary ---
Author Author [facility] Organization [facility] Address Unknown Phone Unavailable Care Team Providers Care Fine Chemicals Operator Name Role Phone Self, Garfield OLVERA PCP Riley Hopson MD 3 Reason for Referral * Radiology Services (Routine) Referred By Contact Referred To Contact Status Reason Specialty Diagnoses / [place] [address] [place] [address], [address] [place] [address] Authorized Radiology Diagnoses Gross hematuria P rocedures CT ABD/PELV WO/W CONTRAST Electronically signed by Herman Katz MD at Encounter Details Care Team Description Date Type Department Gabriel Woodward MD [address] [place] [address] Gross hematuria (Primary Dx) 11/09/2020 Orders Only Urology: [facility] 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 [facility] On track (10/23/2020 Yes Sheldon, 1:06 PM CDT) CHRYSTAL Singh documented as of this encounter Visit Diagnoses Diagnosis Gross hematuria - Primary documented in this encounter Additional Health Concerns Assessment Noted Time A fall risk assessment has been completed for the pat ient 11/09/2020 9:09 PM CDT PHQ-2 Depression Total Score: 0 08/24/2020 7:42 AM CDT documented as of this encounter
--- OUTSIDE RECORDS SUMMARY | 2020-12-13 12:04 | XMS REPORT | Encounter Summary ---
Author Author [facility] Organization [facility] Address Unknown Phone Unavailable Care Team Providers Care Ict Project Manager Name Role Phone Self, Garfield OLVERA PCP Riley Hopson MD 3 Encounter Details Care Team Description Date Type Department Gabriel Woodward MD [address] [place], [place] [id number] 11/09/2020 Orders Only Urology: [facility] [address] [place] [address]. 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 [facility] On track (10/23/2020 Yes Sheldon, [...]
--- OUTSIDE RECORDS SUMMARY | 2020-12-13 12:04 | XMS REPORT | Encounter Summary ---
Author Author [facility] Organization [facility] Address Unknown Phone Unavailable Care Team Providers Care Plumbers And Top Helpers Name Role Phone Self, [place] OLVERA PCP Riley Hopson MD 3 Reason for Referral * Consultation (Discharge Pending) Referred By Contact Referred To Contact Status Reason Specialty Diagnoses / Procedures Mark Rodgers DO [address] [place] [address] [place] [address] [facility] [address] [facility] [address], [address] [place] [address] Pending Review Cardiology Procedures APPOINTMENT REQUEST: CARDIOLOGY HEART FAILURE Electronically signed by Mark Rodgers DO at Reason for Visit * Auth/Cert Referred By Contact Referred To Contact Status Reason Specialty Diagnoses / Procedures Diagnoses GIB (gastrointestinal bleeding) ABD pain Encounter Details Care Team Description Date Type Department Derrick Meza MD [address] [place] [address] [phone] Albin Robertson MD [address] [place] [address] [phone] Aristeo Reveles MD [address] [place] [address] [phone] Mark Rodgers DO [address] [facility] [place] [address] [phone] Nontraumatic rectus hematoma 11/04/2020 Hospital Patient Care Unit H C7: - [facility]counter [facility] 11/15/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 documented as of this encounter Last Filed Vital Signs Reading Time Taken Comments Vital Sign 106/71 11/15/2020 11:45 AM CDT Blood Pressure 97 11/15/2020 11:45 AM CDT Pulse 36.6 C (97.8 F) 11/15/2020 11:45 AM CDT Temperature - - Respiratory Rate 97% 11/15/2020 11:45 AM CDT Oxygen Saturation - - Inhaled Oxygen Concentration 65.6 kg (144 lb 9.6 oz) 11/15/2020 6:12 AM CDT Weight 157.5 cm (5' 2.01") 11/10/2020 5:01 AM CDT Height 26.44 11/10/2020 5:01 AM CDT Body Mass Index documented in [...] as of this encounter Discharge Summaries * Leandro Cullen MD - 11/15/2020 4:17 PM CDT Discharge Summary Name: Zaria Paulson Date Of : 1960 Age: 60 years Admit date: 11/04/2020 Discharge date: 11/15/2020 Discharge Attending: Dr. Rodgers Discharge Summary Completed By: Leandro Cullen MD Service: Med 2070 Reason for hospitalization: GIB (gastrointestinal bleeding) [K92.2] Primary Discharge Diagnosis: Nontraumatic rectus hematoma Hospital Diagnoses: Hospital Problems Active Problems * (Principal) Nontraumatic rectus hematoma Chronic heart failure with preserved ejection fraction (HCC) Anemia Severe tricuspid regurgitation Aortic valve prosthesis present Chronic anticoagulation Hematoma of left flank Hematoma of right flank Hematuria Vaginal bleeding Resolved Problems RESOLVED: Transfusion reaction Significant Past Medical History Cancer (HCC) Comment: Non- hodgkins lymphoma, chemo Disorder of thyroid gland Hypertension Iron deficiency anemia Iron deficiency anemia Allergies Patient has no known allergies. Brief Hospital Course The patient was admitted and the following issues were addressed during this hos pitalization: Ms. Paulson is a 60yo F with a PMH of cirrhosis from unclear etiology, non-ischem ic cardiomyopathy, chronic heart failure with preserved ejection fraction, mecha nical aortic valve on warfarin, paroxysmal atrial fibrillation, and remote hx of lymphoma who presented via transfer from [facility] on 11/04 with concern for a left rectus abdominal muscle hematoma and active extravasation. She was recently admitted roughly at the beginning of October for GI bleeding in the setting of cirrhosis and was treated with ceftriaxone and pantoprazole. She was d/c and had been doing well. Then on 11/03 she developed severe 10/10 LLQ israel n and went to the ED at [facility]. A CT revealed a rectus abdominal hematoma w /concern for extravasation. Her admission INR was 2.5, 2 mg of vitamin K IV was given and her warfarin was held. The next day a heparin drip was started due to the patient's mechanical aortic v alve. The patient developed hematuria and 10 out of 10 abdominal pain. Her hem oglobin was 6.4 at this time. 1 unit of PRBCs was started but the patient had a n episode of hypotension with SBP's in the 70s, and tachycardia in the 130s afte r 15 minutes of the transfusion. The transfusion was stopped and interventional radiology was consulted for intervention. IR performed mesenteric angiogram an d coil embolization of the left inferior epigastric artery. She received a tota l of 3 units PRBCs. Cardiology and hematology were consulted in regards to her anticoagulation for her mechanical aortic valve. They decided to resume the war farin after her bleeding subsided with a new INR goal of 1.6-2.0. Warfarin was restarted 11/11 at 4 mg nightly. She received 5 mg on 11/14. On the day of disch arge, 11/15, her INR was 1.6. We will discharge her with 4 mg nightly and have h er follow-up with an INR tomorrow, outpatient. Dr. Starr, her heart failure car diologist manages her INR. The patient continued to have hematuria during her admission with urinary retent ion as well. Urology was consulted for this. Urology plans to manage this outp atient with a CT urogram and cystoscopy. She had urge incontinence, most likely due to irritation from prior GI bleed around the bladder. Oxybutynin 3 times d aily and hyoscyamine as needed was started. On the day of discharge the patient passed her voiding trial and had a significant reduction in the symptoms of her urge incontinence. Items Needing Follow Up Pending items or areas that need to be addressed at follow up: INR 11/16, Dr. Knight ta w/ cardiology will manage. Pending Labs and Follow Up Radiology Pending labs and/or radiology review at this time of discharge are listed below: if this area is blank, there are no items for review. Pending Labs Order Current Status CULTURE-URINE W/SENSITIVITY In process TRANSFUSE RBC'S Preliminary result TRANSFUSE RBC'S Preliminary result TRANSFUSE RBC'S Preliminary result Medications Medication List START taking these medications hyoscyamine 0.125 mg rapid dissolve tablet; Commonly known as: ANASPAZ; Dose: 0.125 mg; Place one tablet under tongue every 4 hours as needed.; Quantity: 180 tablet; Refills: 0 oxybutynin chloride 5 mg tablet; Commonly known as: DITROPAN; Dose: 5 mg; Take one tablet by mouth three times daily.; Quantity: 180 tablet; Refills: 0 CHANGE how you take these medications bumetanide 1 mg tablet; Commonly known as: BUMEX; Dose: 2 mg; Take two tablets by mouth twice daily.; Quantity: 120 tablet; Refills: 1; What changed: how much to take warfarin 1 mg tablet; Commonly known as: COUMADIN; Take four tablets by mouth daily to equal 4mg dose.; Quantity: 120 tablet; Refills: 0; What changed: medication strength, how much to take, how to take this, when to take this, additional instructions CONTINUE taking these medications ascorbic acid 500 [...] as: SYNTHROID; Dose: 75 mcg; Refills: [address] 40 mg capsule; Commonly known as: PriLOSEC; Dose: 40 mg; Refills: 0 potassium chloride SR 20 mEq tablet; Commonly known as: K-DUR; Dose: 20 mEq; Refills: 0 sertraline 100 mg tablet; Commonly known as: ZOLOFT; Dose: 100 mg; Refills: 0 VASCEPA 1 gram capsule; Generic drug: icosapent ethyL; Refills: 0 STOP taking these medications enoxaparin 60 mg syringe; Commonly known as: LOVENOX metOLazone 2.5 mg tablet; Commonly known as: ZAROXOLYN ondansetron HCL 4 mg tablet; Commonly known as: ZOFRAN Return Appointments and Scheduled Appointments Scheduled appointments: Dec 07, 2020 3:30 PM Office visit with HOSSEIN Pascal Transplant: [facility] ([facility]) [address] [facility] [address], [address] [facility] [address] Dec 22, 2020 2:[address] UROGRAM (SCHED ONLY) with CT[facility] Imaging, [facility] [address] [facility] [address] [facility] [phone] Dec 22, 2020 3:30 PM Procedure with Fernie Abreu MD, UROLOGY PROCEDURE RM 1 Urology: [facility] [place] (Urology) [address] [facility] [phone] Consults, Procedures, Diagnostics, Micro, Pathology Consults: Cardiology, Hematology and Urology Surgical Procedures & Dates: mesenteric angiography w/ coil embolization of left inferior gastric artery Significant Diagnostic Studies, Micro and Procedures: noted in brief hospital co urse Significant Pathology: none Nutrition: No Dietitian Consult Discharge Disposition, Condition Patient Disposition: Home Condition at Discharge: Stable Code Status Code Status History Date Active Date Inactive Code Status Order ID 10/20/2020 [id number] 10/26/2020 1253 Full Code [id number] Vijaya Millard MD Inpatient 10/20/2020 0846 10/20/2020 1221 Full Code [id number] Crissy Gould PA-C I npatient Only showing the last 2 code statuses. Patient Instructions Protime INR (PT) Standing Status: Future Standing Exp. Date: 11/15/[address] Starr at discharge that you have an INR due on 11/16/20. If you are n ot notified on the day of your INR draw with the result and your dosage instruct ions, please call your doctor's office to get this information. Which provider would you like to CC? NITISH STARR [[id number]] Release to patient Immediate Cardiac Diet Limiting [...] may contact a dietitian magalys gasca . Warfarin Information WARFARIN INFORMATION Notify Dr. Starr or his nurse practitioner Berna at discharge that you have an I NR due on 11/16/20. If you are not notified on the day of your INR draw with the result and your dosage instructions, please call your doctor's office to get thi s information. Medication regimen: You will be discharged [...] stopping any medicat ions. This includes prescription, tooy-etk-qddpuiv, natural supplements, vitami ns, and minerals. Many [...] sign of a clot in your legs. Report These Signs and Symptoms Please contact your doctor if you have any of the following symptoms: temperatu re higher than 100.4 degrees F, uncontrolled pain, persistent nausea and/or vomi ting, difficulty breathing, chest pain, severe abdominal pain, headache, unable to urinate, unable to have bowel movement, or bleeding Questions About Your Stay If you have an emergency after discharge, please dial 9-1-1. You may contact your discharging physician up to 7 days after discharge for ques tions about your hospitalization, discharge instructions, or medications by call ing [phone] during regular business hours (8AM-4PM) and asking to speak to the doctor listed on the discharge information. If you are not calling during business hours, ask for the on-call doctor. If you have new or worsening symptoms, you may be directed to your primary care provider (PCP) for ongoing questions, an Emergency Department, or an Urgent Car e Clinic for a more immediate evaluation. For all calls or questions more than 7 days after discharge, please contact your primary care provider (PCP). For medications after discharge: pain (opioid) medicine cannot be refilled or pr escribed by calling your discharging physician. These medications need to be fi lled by your primary care provider (PCP). Regular refill requests should be dir ected to your primary care provider (PCP). Discharging attending physician: MARK RODGERS [[id number]] Activity as Tolerated It is important to [...] your normal activity lev el at discharge Appointment Request: Cardiology Heart Failure Was decompensated heart failure the primary reason for hospitalization? No Was the patient seen by the heart failure team while inpatient and is requesting a follow up within 7 days with the HF clinic? Yes Because you selected Yes a post hospital follow up is required 3-7 days fo llowing discharge. I Acknowledge If an appointment in the HF clinic is unavailable within 7days of discharge, ple ase select permissible alternate departments to conduct heart failure related po st hospital follow up: General Book Cutter If an appointment in the HF clinic is unavailable within 7days of discharge, ple ase select permissible alternate departments to conduct heart failure related po st hospital follow up: HF Specialist Only (will be scheduled outside of 7 day wi ndow, if unavailable) Expected date of discharge: 11/15/2020 Ordering Provider's or Responsible Teams's Pager #? [phone] Additional Orders: Case Management, Supplies, Home Health Signed: Leandro Cullen MD 11/15/2020 cc: Primary Care Physician: [place] Referring physicians: Melissa Newberry PA-C Additional provider(s): Did we miss something? If additional records are needed, please fax a request on office letterhead to [phone]. Please include the patient's name, date of b irth, fax number and type of information needed. Additional request can be made by email at [email or web address]. For general questions of information about electronic records sharing, call [phone]. documented in this encounter Discharge Instructions * Discharge Instr - Case Management* Lacy Sims BSN - 11/09/2020 2:10 PM CDT A nurse with [facility] will come to your home within 24-48 hours of dis charge to initiate home nursing, physical therapy, and occupational therapy serv ices. Please see their contact information below. Your home health orders will b e overseen by your primary-care provider, Dr. [place] following discharge. Please reach out to [facility] or Dr. Gray's office with any questions f ollowing discharge. [facility] documented in this encounter Medications at Time [...] by mouth daily 30 minutes before breakfast. 11/15/2020 oxybutynin chloride Take one 180 tablet 0 (DITROPAN) 5 mg tablet tablet by mouth three times daily. potassium chloride SR Take 20 mEq 0 (K-DUR) 20 mEq tablet by mouth twice daily. Take with a meal and a full glass of water. 03/22/2020 VASCEPA 1 gram capsule TAKE 2 0 CAPSULES BY MOUTH TWICE DAILY WITH MEALS 11/15/2020 11/21/2020 bumetanide (BUMEX) 1 mg Take two 120 tablet 1 tablet tablets by mouth twice daily. 12/01/[address] (PRILOSEC) Take 40 mg by 0 40 mg capsule mouth twice daily. 12/04/2020 sertraline (ZOLOFT) 100 Take 100 mg 0 mg tablet by mouth daily. 11/15/2020 12/04/2020 warfarin (COUMADIN) 1 mg Take four 120 tablet 0 tablet tablets by mouth daily to equal 4mg dose. documented as of this encounter Ordered Prescriptions Start Date End Date Prescription Sig Dispensed Refills 11/15/2020 oxybutynin chloride Take one 180 tablet 0 (DITROPAN) 5 mg tablet tablet by mouth three times daily. 11/15/2020 hyoscyamine (ANASPAZ) Place one 180 tablet 0 0.125 mg rapid dissolve tablet under tablet tongue every 4 hours as needed. 11/15/2020 12/04/2020 warfarin (COUMADIN) 1 mg Take four 120 tablet 0 tablet tablets by mouth daily to equal 4mg dose. 11/15/2020 11/15/2020 warfarin (COUMADIN) 1 mg Take one 120 tablet 0 tablet tablet by mouth daily. Take four tablets by mouth daily to equal 4 mg dose daily. 11/15/2020 11/21/2020 bumetanide (BUMEX) 1 mg Take two 120 tablet 1 tablet tablets by mouth twice daily. documented in this encounter Discharge Disposition Code Departure Means Destination Disposition Wheelchair Home Health Care Svc documented in this encounter Progress Notes * Elizabeth Arredondo RN - 11/15/2020 4:00 PM CDT Zaria Paulson discharged on 11/15/2020. . Discharge instructions reviewed with patient and patient's significant other. Valuables returned: Yes . Home medications: None brought . Functional assessment at discharge complete: Yes . Patient ambulated to wheelchair and was transported home by spouse. * Kavita Owens OT - 11/15/2020 10:47 AM CDT OCCUPATIONAL THERAPY DISCHARGE NOTE Name: Zaria Paulson : 1960 Age : 60 y.o. Admission Date: 11/04/2020 LOS: 11 days Mobility Progressive Mobility Level: Walk in hallway Distance Walked (feet): 200 ft Level of Assistance: Stand by assistance Assistive Device: None Time Tolerated: 11-30 minutes Activity Limited By: Weakness Subjective Pertinent Dx per Physician: PMH: cirrhosis, non-ischemic cardiomyopathy, chronic HFpEF, mechanical aortic valve on AC, paroxysmal Afib, & remote lymphoma- admit from OSH with rectus sheath hematoma & active extravasation Pain / Complaints: Patient has no c/o pain;Patient agrees to participate in ther apy Objective Psychosocial Status: Willing and Cooperative to Participate Home Living Type of Home: House Home Layout: One Level (2 stairs to enter) Bathroom Shower / Tub: Tub/Shower Unit Bathroom Toilet: Standard Prior Function Level Of Ina: Independent with ADLs and functional transfers;Needed ass istance with ADLs;Needed assistance with homemaking Lives With: Spouse Receives Help From: Spouse Other Function Comments: Lives with who provides most homemaking. Pt rep orts available to assist prn and often times provides at least supervisi on for showering. Denies h/o falls or use of DME. Mostly household distance ambu lation at baseline only. ADL's Where Assessed: In Bathroom;Standing at Sink Grooming Assist: Stand By Assist Grooming Deficits: Supervision/Safety Toileting Assist: Stand By Assist Toileting Deficits: Supervision/Safety ADL Mobility Bed Mobility: Supine to Sit: Standby assist Bed Mobility: Sit to Supine: Standby assist Transfer Type: Sit to/from stand Transfer: Assistance Level: From;Bed;Toilet;Standby assist Transfer: Assistive Device: None End of Activity Status: In bed;Nursing notified Gait Distance: 200 feet Gait: Assistance Level: Standby assist Gait: Assistive Device: None Gait Comments: pt ambulates in hallway without device with SBA. pt asking about being UAL, discussed with nursing staff, this would be appropriate Activity Tolerance Endurance: 3/5 Tolerates 25-30 Minutes Exercise w/Multiple Rests Assessment Assessment: Decreased ADL Status;Decreased Endurance;Decreased Self-Care Trans Goal Formulation: Patient Comments: pt is performing all ADL and functional mobility at SBA level. has ach ieved therapy goals, safe to discharge home with intermittent assist from spouse when medically indicated AM-PAC 6 Clicks Daily Activity Inpatient Putting on and taking off regular lower body clothes?: None Bathing (Including washing, rinsing, drying): None Toileting, which includes using toilet, bedpan, or urinal: None Putting on and taking off regular upper body clothing: None Taking care of personal grooming such as brushing teeth: None Eating meals?: None Daily Activity Raw Score: 24 Standardized (t-scale) score: 57.54 CMS 0-100% Score: 0 CMS G Code Modifier: CH Plan OT Frequency: No Further Treatment ADL Goals Patient Will Perform Grooming: Standing at Sink;w/ Supervision/Safety;Met Patient Will Perform LE Dressing: w/ Safety/Supervision;Met Patient Will Perform Toileting: w/ Supervision/Safety;Met Functional Transfer Goals Pt Will Perform All Functional Transfers: w/ Supervision, Met OT Discharge Recommendations Recommendation: Home with intermittent supervision/assistance Therapist: SLAVA Mejia/Nancy [id number] Date: 11/15/2020 * Leandro Cullen MD - 11/15/2020 10:30 AM CDT General Progress Note Name: Zaria Paulson Today's Date: 11/15/2020 Admission Date: 11/04/2020 LOS: 11 days Assessment and Plan Principal Problem: Nontraumatic rectus hematoma Active Problems: Transfusion reaction Ms. Paulson is a 60yo F with a PMH of cirrhosis from unclear etiology, non-ischem ic cardiomyopathy, chronic heart failure with preserved ejection fraction, mecha nical aortic valve on warfarin, paroxysmal atrial fibrillation, and remote hx of lymphoma who presented via transfer from [facility] with concern for a left re ctus abdominal muscle hematoma and active extravasation. Interval Update: Voiding trial today. INR 1.6 today, warfarin decreased to 4 qhs . Okay to discharge today if she passes voiding trial. Will follow up with INR t omorrow outpatient =>managed by cardiology heart failure at Acute blood loss anemia L flank/hip hematoma Left rectus abdominal hematoma Hematuria - [facility] with 2-day hx of LLQ pain, 10/10 bot h sharp and dull and now progressing toward her midline - She denies any melena or hematochezia - 11/04/20 CT a/p: complex enlargement and fluid collection within the left rect us abdominal muscle extending into the retroperitoneum and left pelvic musculatu re suggestive of active extravasation - Hgb 8.1 at outside hospital -Hgb 7.7 on admission - Patient had been taking her warfarin and bridging with Lovenox -Vitamin K given in ED -INR 1.3, was 2.5 on admission -Patient typed and crossed, consented for blood products -Patient denies hematemesis, melena, hematochezia. No concern for GI bleed at t his time. -11/05/2020: Patient had episode of hematuria with drop in hemoglobin to 6.5. Be came hypotensive following blood transfusion, repeat hemoglobin of 4.5, IR shahrzad stout, patient taken for embolization of inferior epigastric artery on 11/06/2020 -Cardiology consulted 11/07 regarding risk/benefit of anticoagulation in setting of mechanical heart valve and high risk bleeding. Recommendations: -Resume warfarin once bleeding subsides -INR goal of 1.6-2.0 -Do not bridge with heparin/lovenox - status post 1u pRBC on 11/07, 3 units PRBC on 11/06 -Trevino placed 11/08 draining bloody urine with no monica blood - 11/08 Vaginal exam with evidence of vaginal blood - 11/08 L flank and hip hematoma discovered on rounds -Plt 203, Fibrinogen 347, haptoglobin <30, LDH 241 -CT a/p 11/08/20 -stable slight improvement of left hemipelvis rectus hematoma, s mall to moderate simple abdominal and pelvic ascites, cirrhosis, small right ple ural effusion, mild body wall edema, no mention of retroperitoneal hemorrhage -Heparin DC'd 11/05 -Consulted hematology, thought L rectus hematoma was from Lovenox injections. Ag hawa with cardiology recommendation to not bridge with Lovenox when warfarin is restarted. Signed off. - Consulted urology, patient not having significant hematuria to warrant inpatie nt cystoscopy and CT urogram. Will arrange outpatient. Signed off. Urology was r e-engaged yesterday d/t blood clots overnight that caused urinary retention & pain. They again recommended outpatient w/u. -Restarted coumadin 4mg 11/11, with no bridge per heme/cards recs. INR 1.6 today PLAN: > Hemoglobin stable at 8.2 today. >Decreased Coumadin to 4 mg qhs > Continue INR and CBC checks daily >voiding trial today, post-voids bladder checks q6hrs #Urge incontinence -during voiding trial yesterday, pt felt like she had urinary retention with israel n. Post void bladder scan was performed but is not reliable d/t pt's ascites. -Urology placed a 20 Fr Trevino catheter, 10 cc in balloon, was replaced without d ifficulty with return a small amount of avelar urine. Bladder was then irrigated until clear with 180 cc of fluid. No evidence of clot or urinary retention. >oxybutynin 5mg TID, hyoscyamine 0.125 q4 prn >voiding trial today. Discussed w/ pt that she most likely has urge incontinence w/ irritation from previous retroperitoneal bleed. Non-ischemic cardiomyopathy Chronic heart failure with preserved ejection fraction Severe TR - Follows with Dr. 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 PLAN: > Coumadin per above >INR goal 1.6-2.0 per Cardiology recs above Paroxysmal atrial fibrillation - Went into AF with RVR during 10/20-10/26 admission, given metoprolol and amiod arone likely 2/2 active GIB - Was not discharged on anti-arrhythmic therapy Cirrhosis Hx of colonic AVMs - Follows with Dr. Marti - Unclear etiology though pt states it was related to lymphoma treatment, kamar gasca was admitted from 10/20-10/26 for decompensated cirrhosis in setting of ascite s and volume overload - Underwent Flex sig with sigmoid dieulafoy s/p epinephrine, bipolar cautery, he moclips x 2 with successful hemostasis; received 6 units of pRBCs and 1 unit of FFP - No asterixis on exam -Patient reports no history of esophageal varices -Meld 14 on 11/09/2020 PLAN: > Daily MELD labs > Continue PPI daily Remote hx of lymphoma - s/p chemotherapy in 2004 FEN: no IVF, electrolytes reviewed, Cardiac diet with Na and H2O restriction. Prophalyxis: holding in setting of high risk bleed Disposition: Admit to inpatient. Code status: Full (Discussed on 11/04/2020) Patient seen and discussed with Dr. Mark Rodgers, DO Leandro Cullen MD Internal Medicine, PGY1 Available on Voalte Pager: [phone] Subjective Interval history: No acute events overnight. Pt seen this AM at bedside. Failed her voiding trial yesterday. We talked about how this was likely from urge incon tinence d/t retroperiotneal blood irritation on the bladder. We will try again t asmita. Pt has no other complaints. Denies CP, SOB, Abdominal pain, N/V, fever, & chills. Review of Systems: A comprehensive 12 point review of symptoms was negative except for as noted in the subjective history. Objective Vital Signs: Last Filed Vital Signs: 24 Miguel r Range BP: 105/62 (11/15 814) Temp: 36.8 C (98.3 F) (11/15 814) Pulse: 97 (11/15 814) Respirations: 18 PER MINUTE (11/15 814) SpO2: 100 % (11/15 814) BP: (89-108)/(52-65) Temp: [36.6 C (97.8 F)-37 C (98.6 F)] Pulse: [94-109] Respirations: [16 PER MINUTE-20 PER MINUTE] SpO2: [97 %-100 %] Intensity Pain Scale (Self Report): 2 (11/15/20 0018) Vitals: 11/12/20 0613 11/14/20 1100 11/15/20 0612 Weight: 64.2 kg (141 lb 9.6 oz) 65.1 kg (143 lb 9.6 oz) 65.6 kg (144 lb 9.6 oz) Intake/Output Summary: (Last 24 hours) Intake/Output Summary (Last 24 hours) at 11/15/2020 1030 Last data filed at 11/15/2020 0815 Gross per 24 hour Intake 1120 ml Output 1315 ml Net -195 ml Stool Occurrence: 1 Physical Exam Physical Exam General: Well-Developed, NAD, Aox3 Skin: warm, no ulcers or xanthomas. Bilateral echymosis on right & left hip/ flank, decreased in size on the right from yesterday. Left ecchymosis stable. HEENT: Normocephalic, atraumatic, anicteric sclera Heart: RRR, no murmurs rubs or gallops Lung: CTABL, normal respiratory effort Abdomen: Soft, nondistended, nontender, normoactive bowel sounds Ext: No GREGORY, cyanosis, clubbing Neuro: Sensation and motor grossly intact. Moving all extremities spontaneously Psyche: Affect normal Medications Medications Scheduled Meds:bumetanide (BUMEX) tablet 2 mg, 2 mg, Oral, BID(9-17) levothyroxine (SYNTHROID) tablet 75 mcg, 75 mcg, Oral, QDAY 30 min before breakf ast oxybutynin chloride (DITROPAN) tablet 5 mg, 5 mg, Oral, TID pantoprazole DR (PROTONIX) tablet 40 mg, 40 mg, Oral, QDAY(21) sertraline (ZOLOFT) tablet 100 mg, 100 mg, Oral, QDAY warfarin (COUMADIN) tablet 4 mg, 4 mg, Oral, Once per day on Sun Fri [START ON 11/18/2020] warfarin (COUMADIN) tablet 5 mg, 5 mg, Oral, Once per day o n Tue Sat Continuous Infusions: PRN and Respiratory Meds:acetaminophen Q6H PRN, hyoscyamine Q4H PRN, oxyCODONE Q 6H PRN, prochlorperazine maleate Q6H PRN, trimethobenzamide Q6H PRN, [DISCONTINU ED] warfarin QHS AND warfarin, pharmacy to manage Per Pharmacy Associated attestation - Mark Rodgers DO - 11/15/2020 10:07 PM CDT ATTESTATION I personally performed the turpin portions of the E/M visit, discussed case with e resident and concur with the documentation of history, physical exam, assessme nt, and treatment plan unless otherwise noted. I spent the below noted time prov iding and personally directing care that included: systems and physical examinat ion, review of laboratory data, review of imaging studies, review of medications , fluid and electrolyte management, hemodynamic monitoring, optimization of bloo d pressure, and coordination of care with consulting services. Pt voiding spontaneously after removel of trevino catheter. Still with avelar red urine but hgb stable. Feel safe for DC today with check of INR tomorrow. Care plan was discussed with the patient, high risk case manager, house staff, and pharmac ist. Carlos Rodgers DO Date: 11/15/2020 Internal Medicine, Hospitalist [phone] * Bao Urrutia MD - 11/15/2020 7:42 AM CDT Urology Brief Note Urology re-engaged for ongoing gross hematuria after Trevino catheter was removed yesterday 11/13/20. Patient has been voiding dark red urine today and having sign ificant bladder iritation. Bladder scan was preformed but this is not reliable g iven her abdominal ascities. 20 Fr Trevino catheter, 10 cc in balloon, was replace d without difficulty with return a small amount of avelar urine. Bladder was the n irrigated until clear with 180 cc of fluid. No evidence of clot or urinary ret ention. Patient has evidence of slow bleed in bladder that has potential to get worse as her INR becomes therapeutic. Would recommend maintaining Trevino catheter to dependent drainage while restarting Warfarin. If bleeding worsens with signi ficant drop in Hgb or she becomes hemodynamically unstable will plan for cytosco py with fulguration in the OR. Otherwise will continue to monitor at this time. Interval 11/15: Trevino continues to drain with light avelar urine in the tubing no clots seen. Continue with same plan. Plan: - Bladder irritation likely related to external compression from pelvic hematoma > Recommend Levsin and Ditropan PRN, ordered > Will obtain urine culture to ensure not infectious in etiology: No growth to date - Maintain Trevino catheter to dependent drainage - Flush catheter as needed with 60-120 ml sterile water/saline through catheter main port with 60 cc syringe - Trend Hgb and INR: INR at 1.6 and Hgb stable - Consider cytoscopy, with fulguration in OR if bleeding worsens - Okay for diet from Urology perspective - Urology will continue to follow Bao Urrutia MD Urology Resident * Nithya Goldman PHARMD - 11/15/2020 7:34 AM CDT Pharmacy Warfarin Note Subjective: Pharmacy consulted to assist with management of warfarin therapy. Objective: Zaria Paulson is a 60 y.o. female receiving warfarin for Mechanical AVR Comme nt: Mechanical AVR. Current Warfarin Orders Medication Dose Route Frequency warfarin (COUMADIN) tablet 4 mg 4 mg Oral Once per day on Fri Toya F ri [START ON 11/18/2020] warfarin (COUMADIN) tablet 5 mg 5 mg Oral Once per day on Fri warfarin, pharmacy to manage 1 each Service Per Pharmacy Bridge therapy: none per cards/heme. Warfarin dose for Ms. Paulson prior to admission: 7.5 Mon, 5 AOD INR Date/Time Value Ref Range Status 11/15/2020 0610 1.6 (H) 0.8 - 1.2 Final 11/14/2020 0517 1.3 (H) 0.8 - 1.2 Final 11/13/2020 0712 1.3 (H) 0.8 - 1.2 Final 11/12/2020 0824 1.2 0.8 - 1.2 Final Drug interaction(s): no. Assessment: Goal INR for Ms. Paulson is Other (comment) Comment: 1.6-2 for Mechanical AVR Com ment: Mechanical AVR. INR: INR (no units) Date/Time Value 11/15/2020 0610 1.6 (H) INR Home (no units) Date/Time Value 11/02/2020 0000 2.4 INR POC (no units) Date/Time Value 10/20/2020 0913 2.8 (H) Plan: 1. Decent rise in INR in past 24 hours. Patient received 1st dose of 5mg last n ight. Given rise in INR will adjust warfarin dose to 5mg on Tues/Sat and 4mg all other days. Depending on INR trend may need to reduce dose further given INR g oal 1.6-2. 2. Next INR: Tomorrow 3. Pharmacy will [...] therapy will no longer be managed by Tracy Goldman PHARMD 11/15/2020 * Buck Montes MD - 11/14/2020 3:39 PM CDT Urology Brief Note Urology re-engaged for ongoing gross hematuria after Trevino catheter was removed yesterday 11/13/20. Patient has been voiding dark red urine today and having sign ificant bladder iritation. Bladder scan was preformed but this is not reliable g iven her abdominal ascities. 20 Fr Trevino catheter, 10 cc in balloon, was replace d without difficulty with return a small amount of avelar urine. Bladder was the n irrigated until clear with 180 cc of fluid. No evidence of clot or urinary ret ention. Patient has evidence of slow bleed in bladder that has potential to get worse as her INR becomes therapeutic. Would recommend maintaining Trevino catheter to dependent drainage while restarting Warfarin. If bleeding worsens with signi ficant drop in Hgb or she becomes hemodynamically unstable will plan for cytosco py with fulguration in the OR. Otherwise will continue to monitor at this time. Plan - Bladder irritation likely related to external compression from pelvic hematoma > Recommend Levsin and Ditropan PRN, ordered > Will obtain urine culture to ensure not infectious in etiology - Maintain Trevino catheter to dependent drainage - Flush catheter as needed with 60-120 ml sterile water/saline through catheter main port with 60 cc syringe - Trend Hgb and INR - Consider cytoscopy, with fulguration in OR if bleeding worsens - Okay for diet from Urology perspective - Urology will continue to follow Buck Montes MD Urology Resident * Kavita Owens OT - 11/14/2020 2:35 PM CDT OCCUPATIONAL THERAPY NOTE Attempted to see patient for occupational therapy. Patient politely declines, re ports she has just returned from a walk in the hallway with nursing staff and villa s no current concerns with mobility. Occupational therapy will continue to juanita edward to provide intervention as indicated. Kavita Owens, KRISTENR/L [phone] * Brigitte Barlow - 11/14/2020 12:28 PM CDT CLINICAL NUTRITION Clinical Nutrition Follow-Up Assessment Name: Zaria Paulson : 1960 Age : 60 y.o. Admission Date: 11/04/2020 LOS: 10 days Recommendation: Cont current diet. Offer Boost PRN Comments: Ms. Paulson is a 60yo F with a PMH of cirrhosis from unclear etiology, non-ischem ic cardiomyopathy, chronic heart failure with preserved ejection fraction, mecha nical aortic valve on warfarin, paroxysmal atrial fibrillation, and remote hx of lymphoma who presented via transfer from [facility] with concern for a left re ctus abdominal muscle hematoma and active extravasation. Spoke with patient and spouse at bedside today. Patient reports her appetite is getting better, she did n't have one for awhile. At home she eats 3-4 small meals throughout the day. Sh e keeps track of her sodium intake and tries to stay below 2,000mg/day. Her weig ht fluctuates between 130-160 pounds, currently is 142 pounds. Educated patient on a low sodium, high protein diet. Reviewed good protein sources, her goal of 7 4g of protein/day. Provided handout on smoothie recipes and protein content of f ood. Patient and spouse were very interactive, expect good compliance. Nutrition Assessment of Patient: Admit Weight: 65 kg (11/05 Bed Scale, 1st sourced weight); BMI (Calculated): 25.89; BMI Categories Adult: Over Weight: 25-29.9 Pertinent Allergies/Intolerances: n/a Pertinent Labs: Na 134; Pertinent Meds: synthroid, protonix, compazine; Oral Diet Order: Cardiac;1500 mL/day fluid restriction; Current Oral Intake: Marginally Adequate;Improving Estimated Calorie Needs: 1850 kcal (30 kcal/kg DBW 61.7 kg) Estimated Protein Needs: 74-86 gm (1.2-1.4 gm/kg DBW 61.7 kg) Malnutrition Assessment: Does not meet criteria; ; ; ; ; Nutrition Focused Physical Assessment: Loss of Subcutaneous Fat: Yes; Severity: Mild; Location: Triceps Muscle Wasting: Yes; Severity: Mild; Location: Clavicle, Judaism Edema: No; ; Pressure Injury: none noted Comment: Abdomen s/nd/nt per RN, BM 11/10 Nutrition Diagnosis: Increased nutrient needs, specify: (kcal/protein) Etiology: liver cirrhosis Signs & Symptoms: estimated kcal/protein vs estimated needs Intervention / Plan: reviewed low sodium, high protien diet monitor wt, lab trends and GI symptoms monitor po intake and adequacy Goals: Patient to consume >75% of meals Time Frame: Throughout stay Status: Partially met;Ongoing Brigitte Barlow, MS, RD, LOFTSMAN/WOMAN, LD, CCTD Office: [phone] Available on Voalte * Leandro Cullen MD - 11/14/2020 9:30 AM CDT General Progress Note Name: Zaria Paulson Today's Date: 11/14/2020 Admission Date: 11/04/2020 LOS: 10 days Assessment and Plan Principal Problem: Nontraumatic rectus hematoma Active Problems: Transfusion reaction Ms. Paulson is a 60yo F with a PMH of cirrhosis from unclear etiology, non-ischem ic cardiomyopathy, chronic heart failure with preserved ejection fraction, mecha nical aortic valve on warfarin, paroxysmal atrial fibrillation, and remote hx of lymphoma who presented via transfer from [facility] with concern for a left re ctus abdominal muscle hematoma and active extravasation. Interval Update: Voiding trial today. INR 1.3 again, warfarin increased to 5qhs. Will continue admission until INR within goal. Acute blood loss anemia L flank/hip hematoma Left rectus abdominal hematoma Hematuria - Patient presented to [facility] with 2-day hx of LLQ pain, 10/10 bot h sharp and dull and now progressing toward her midline - She denies any melena or hematochezia - 11/04/20 CT a/p: complex enlargement and fluid collection within the left rect us abdominal muscle extending into the retroperitoneum and left pelvic musculatu re suggestive of active extravasation - Hgb 8.1 at outside hospital -Hgb 7.7 on admission - Patient had been taking her warfarin and bridging with Lovenox -Vitamin K given in ED -INR 1.3, was 2.5 on admission -Patient typed and crossed, consented for blood products -Patient denies hematemesis, melena, hematochezia. No concern for GI bleed at t his time. -11/05/2020: Patient had episode of hematuria with drop in hemoglobin to 6.5. Be came hypotensive following blood transfusion, repeat hemoglobin of 4.5, IR shahrzad stout, patient taken for embolization of inferior epigastric artery on 11/06/2020 -Cardiology consulted 11/07 regarding risk/benefit of anticoagulation in setting of mechanical heart valve and high risk bleeding. Recommendations: -Resume warfarin once bleeding subsides -INR goal of 1.6-2.0 -Do not bridge with heparin/lovenox - status post 1u pRBC on 11/07, 3 units PRBC on 11/06 -Trevino placed 11/08 draining bloody urine with no monica blood - 11/08 Vaginal exam with evidence of vaginal blood - 11/08 L flank and hip hematoma discovered on rounds -Plt 203, Fibrinogen 347, haptoglobin <30, LDH 241 -CT a/p 11/08/20 -stable slight improvement of left hemipelvis rectus hematoma, s mall to moderate simple abdominal and pelvic ascites, cirrhosis, small right ple ural effusion, mild body wall edema, no mention of retroperitoneal hemorrhage -Heparin DC'd 11/05 -Consulted hematology, thought L rectus hematoma was from Lovenox injections. Ag hawa with cardiology recommendation to not bridge with Lovenox when warfarin is restarted. Signed off. - Consulted urology, patient not having significant hematuria to warrant inpatie nt cystoscopy and CT urogram. Will arrange outpatient. Signed off. Urology was r e-engaged yesterday d/t blood clots overnight that caused urinary retention & pain. They again recommended outpatient w/u. -Restarted coumadin 4mg 11/11, with no bridge per heme/cards recs. INR 1.3 today PLAN: > Hemoglobin stable at 7.9 today. > Increased Coumadin from 4 mg to 5mg qhs > Continue INR and CBC checks daily >voiding trial today, post-voids bladder checks q6hrs Non-ischemic cardiomyopathy Chronic heart failure with preserved ejection fraction Severe TR - Follows with Dr. 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 PLAN: > Coumadin per above >INR goal 1.6-2.0 per Cardiology recs above Urinary retention - Bladder scan 685 ml and 356 on 11/08 - Trevino placed 11/08 - Possibly having bladder capacity affected by compressing rectus hematoma PLAN: > Will attempt voiding trial today Paroxysmal atrial fibrillation - Went into AF with RVR during 10/20-10/26 admission, given metoprolol and amiod arone likely 2/2 active GIB - Was not discharged on anti-arrhythmic therapy Cirrhosis Hx of colonic AVMs - Follows with Dr. Marti - Unclear etiology though pt states it was related to lymphoma treatment, kamar gasca was admitted from 10/20-10/26 for decompensated cirrhosis in setting of ascite s and volume overload - Underwent Flex sig with sigmoid dieulafoy s/p epinephrine, bipolar cautery, he moclips x 2 with successful hemostasis; received 6 units of pRBCs and 1 unit of FFP - No asterixis on exam -Patient reports no history of esophageal varices -Meld 14 on 11/09/2020 PLAN: > Daily MELD labs > Continue PPI daily Remote hx of lymphoma - s/p chemotherapy in 2004 FEN: no IVF, electrolytes reviewed, Cardiac diet with Na and H2O restriction. Prophalyxis: holding in setting of high risk bleed Disposition: Admit to inpatient. Code status: Full (Discussed on 11/04/2020) Patient seen and discussed with Dr. Mark Rodgers, DO Leandro Cullen MD Internal Medicine, PGY1 Available on Voalte Pager: [phone] Subjective Interval history: No acute events overnight. Pt seen this AM at bedside. She had some streaks of blood in the toilet paper when she wiped last night but no bloo dy or dark stools. Still has some blood intermixed with her urine but she has no t had any more clots/urinary retention. Denies CP, SOB, Abdominal pain, N/V, fev er, & chills. Review of Systems: A comprehensive 12 point review of symptoms was negative except for as noted in the subjective history. Objective Vital Signs: Last Filed Vital Signs: 24 Miguel r Range BP: 98/56 (11/14 518) Temp: 36.6 C (97.9 F) (11/14 518) Pulse: 96 (11/14 518) Respirations: 18 PER MINUTE (11/14 518) SpO2: 96 % (11/14 518) BP: (95-100)/(56-67) Temp: [36.6 C (97.9 F)-36.9 C (98.4 F)] Pulse: [96-106] Respirations: [18 PER MINUTE] SpO2: [96 %-100 %] Vitals: 11/10/20 0501 11/11/20 0600 11/12/20 0613 Weight: 64.2 kg (141 lb 9.6 oz) 64 kg (141 lb 1.5 oz) 64.2 kg (141 lb 9.6 oz) Intake/Output Summary: (Last 24 hours) Intake/Output Summary (Last 24 hours) at 11/14/2020 0930 Last data filed at 11/14/2020 0920 Gross per 24 hour Intake 362 ml Output 825 ml Net -463 ml Stool Occurrence: 1 Physical Exam Physical Exam General: Well-Developed, NAD, Aox3 Skin: warm, no ulcers or xanthomas. Bilateral echymosis on right & left hip/ flank, decreased in size on the right from yesterday. Left ecchymosis stable. HEENT: Normocephalic, atraumatic, anicteric sclera Heart: RRR, no murmurs rubs or gallops Lung: CTABL, normal respiratory effort Abdomen: Soft, nondistended, nontender, normoactive bowel sounds Ext: No GREGORY, cyanosis, clubbing Neuro: Sensation and motor grossly intact. Moving all extremities spontaneously Psyche: Affect normal Medications Medications Scheduled Meds:acetaminophen (TYLENOL EXTRA STRENGTH) tablet 500 mg, 500 mg, Ora l, Q6H* bumetanide (BUMEX) tablet 2 mg, 2 mg, Oral, BID(9-17) levothyroxine (SYNTHROID) tablet 75 mcg, 75 mcg, Oral, QDAY 30 min before breakf ast pantoprazole DR (PROTONIX) tablet 40 mg, 40 mg, Oral, QDAY(21) sertraline (ZOLOFT) tablet 100 mg, 100 mg, Oral, QDAY warfarin (COUMADIN) tablet 5 mg, 5 mg, Oral, QHS Continuous Infusions: PRN and Respiratory Meds:oxyCODONE Q6H PRN, prochlorperazine maleate Q6H PRN, tr imethobenzamide Q6H PRN, [DISCONTINUED] warfarin QHS AND warfarin, pharmacy to manage Per Pharmacy Associated attestation - Mark Rodgers DO - 11/14/2020 9:20 PM CDT ATTESTATION I personally performed the turpin portions of the E/M visit, discussed case with e resident and concur with the documentation of history, physical exam, assessme nt, and treatment plan unless otherwise noted. I spent the below noted time prov iding and personally directing care that included: systems and physical examinat ion, review of laboratory data, review of imaging studies, review of medications , fluid and electrolyte management, hemodynamic monitoring, optimization of bloo d pressure, and coordination of care with consulting services. Reengaged Urology today given ongoing gross hematuria. Trevino replaced, may need cystoscopy if bleeding continues with increase in INR. Care plan was discussed with the patient, high risk case manager, house staff, and pharmac ist. Carlos Rodgers DO Date: 11/14/2020 Internal Medicine, Hospitalist [phone] * Nithya Goldman, PHARMD - 11/14/2020 7:11 AM CDT Pharmacy Warfarin Note Subjective: Pharmacy consulted to assist with management of warfarin therapy. Objective: Zaria Paulson is a 60 y.o. female receiving warfarin for Mechanical AVR Comme nt: Mechanical AVR. Current Warfarin Orders Medication Dose Route Frequency warfarin (COUMADIN) tablet 5 mg 5 mg Oral QHS warfarin, pharmacy to manage 1 each Service Per Pharmacy Bridge therapy: none per cards/heme. Warfarin dose for Ms. Paulson prior to admission: 7.5 Mon, 5 AOD INR Date/Time Value Ref Range Status 11/14/2020 0517 1.3 (H) 0.8 - 1.2 Final 11/13/2020 0712 1.3 (H) 0.8 - 1.2 Final 11/12/2020 0824 1.2 0.8 - 1.2 Final Drug interaction(s): no. Assessment: Goal INR for Ms. Paulson is Other (comment) Comment: 1.6-2 for Mechanical AVR Com ment: Mechanical AVR. INR: INR (no units) Date/Time Value 11/14/2020 0517 1.3 (H) INR Home (no units) Date/Time Value 11/02/2020 0000 2.4 INR POC (no units) Date/Time Value 10/20/2020 0913 2.8 (H) Plan: 1. Patient has received 3 doses of 4mg of warfarin with essentially no upward t rend in INR. Will increase dose to 5mg po daily starting tonight. This is ~20% increase in total weekly dose from previous regimen. 2. Next INR: Tomorrow 3. Pharmacy will [...] therapy will no longer be managed by Tracy Goldman PHARMD 11/14/2020 * Jennifer Simmons, CHRYSTAL - 11/13/2020 5:54 PM CDT Heart Failure Nursing Progress Note Admission Date: 11/04/2020 LOS: 9 days Admission Weight: 63.8 kg (140 lb 9.6 oz) Most recent weights (inpatient): Vitals: 11/10/20 0501 11/11/20 0600 11/12/20 0613 Weight: 64.2 kg (141 lb 9.6 oz) 64 kg (141 lb 1.5 oz) 64.2 kg (141 lb 9.6 oz) Weight change from previous day: N/A missed weight this AM Fluid restriction ordered: 1.5 L Intake/Output Summary: (Last 24 hours) Intake/Output Summary (Last 24 hours) at 11/13/2020 1754 Last data filed at 11/13/2020 1621 Gross per 24 hour Intake 352 ml Output 1450 ml Net -1098 ml Is patient incontinent No Anticipated discharge date: TBD Discharge goals: To continue to adhere to fluid restriciton Daily Assessment of Patient Stated Goals: Short Term Goal Identified by patient (Short Term=during hospitalization): To continue to adhere to fluid restriciton * Gabriel Woodward MD - 11/13/2020 1:28 PM CDT Urology Brief Note Urology called to re-evaluate. Patient reports suprapubic pressure relieved afte r trevino catheter flushing overnight. Catheter currently draining well with light pink urine and some sediment. No clots in tubing or catheter collection bag. PLAN: - Flush catheter as needed with 60-120 ml sterile water/saline through catheter main port with 60 cc syringe - Urology to arrange outpatient CT urogram and cystoscopy - Okay to remove catheter at any time from urology standpoint. Please ensure pat ient is emptying bladder with post-void bladder scan. 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 Admission Date: 11/04/2020 LOS: 9 days Mobility Patient Turn/Position: Chair Progressive Mobility Level: Walk in room Distance Walked (feet): 35 ft Level of Assistance: Assist X1 Assistive Device: Hand Held Time Tolerated: 11-30 minutes Activity Limited By: Weakness Subjective Pertinent Dx per Physician: PMH: cirrhosis, non-ischemic cardiomyopathy, chronic HFpEF, mechanical aortic valve on AC, paroxysmal Afib, & remote lymphoma- admit from OSH with rectus sheath hematoma & active extravasation Precautions: Falls Pain / Complaints: Patient has no c/o pain;Patient agrees to participate in ther apy Comments: pt supine in bed upon OT arrival. Pt agreeable to OT session with BUSHRA moya. Pt left seated in bedside chair with alarm set upon OT exit. Objective Psychosocial Status: Willing and Cooperative to Participate Home Living Type of Home: House Home Layout: One Level (2 stairs to enter) Bathroom Shower / Tub: Tub/Shower Unit Bathroom Toilet: Standard Prior Function Level Of Ina: Independent with ADLs and functional transfers;Needed ass istance with ADLs;Needed assistance with homemaking Lives With: Spouse Receives Help From: Spouse Other Function Comments: Lives with who provides most homemaking. Pt rep orts available to assist prn and often times provides at least supervisi on for showering. Denies h/o falls or use of DME. Mostly household distance ambu lation at baseline only. ADL's Where Assessed: Edge of Bed LE Dressing Assist: Stand By Assist LE Dressing Deficits: Don/Doff R Sock;Don/Doff L Sock Comment: Pt reported completed grooming task prior to OT arrival. Pt declined co mpletion of additional ADLs this date. Pt agreeable to functional mobility in ro . ADL Mobility Bed Mobility: Supine to Sit: Standby assist Transfer Type: Sit to stand Transfer: Assistance Level: From;Bed;Standby assist Transfer: Assistive Device: Hand hold assist Transfer: Type of Assistance: For safety considerations;For balance Other Transfer Type: Stand to sit Other Transfer: Assistance Level: To;Bedside chair;Minimal assist End of Activity Status: Up in chair;Instructed patient to request assist with mo bility;Instructed patient to use call light Sitting Balance: Standby assist Standing Balance: Standby assist Gait Distance: 35 feet Gait: Assistance Level: Minimal assist (contact gaurd assist) Gait: Assistive Device: Hand hold assist Gait Comments: slow gait Activity Tolerance Endurance: 3/5 Tolerates 25-30 Minutes Exercise w/Multiple Rests Education Goal Formulation: With Patient Assessment Assessment: Decreased ADL Status;Decreased Endurance;Decreased Self-Care Trans Goal Formulation: Patient Comments: Demonstrated good functional mobility with contact gaurd assist. Pt co ntinues to progress towards functional goals. AM-PAC 6 Clicks Daily Activity Inpatient Putting on and taking off regular lower body clothes?: A Little Bathing (Including washing, rinsing, drying): A Little Toileting, which includes using toilet, bedpan, or urinal: A Little Putting on and taking off regular upper body clothing: None Taking care of personal grooming such as brushing teeth: None Eating meals?: None Daily Activity Raw Score: 21 Standardized (t-scale) score: 44.27 CMS 0-100% Score: 32.79 CMS G Code Modifier: CJ Plan OT Frequency: 5x/week OT Plan for Next Visit: Continued endurance training for standing grooming and f urther distance ambulation- bring walker and assess for d/c Functional Transfer Goals Pt Will Perform All Functional Transfers: w/ Supervision OT Discharge Recommendations Recommendation: Home with intermittent supervision/assistance Recommendation for Therapy Post Discharge: Home health Patient Currently Requires Physical Assist With: All home functioning ADLs Patient Currently Requires Supervision For: Mobility Patient Currently Requires Equipment: Bath/shower chair Therapist: SLAVA Weston/Nancy [id number] Date: 11/13/2020 * Leandro Cullen MD - 11/13/2020 10:56 AM CDT General Progress Note Name: Zaria Paulson Today's Date: 11/13/2020 Admission Date: 11/04/2020 LOS: 9 days Assessment and Plan Principal Problem: Nontraumatic rectus hematoma Active Problems: Transfusion reaction Ms. Paulson is a 60yo F with a PMH of cirrhosis from unclear etiology, non-ischem ic cardiomyopathy, chronic heart failure with preserved ejection fraction, mecha nical aortic valve on warfarin, paroxysmal atrial fibrillation, and remote hx of lymphoma who presented via transfer from [facility] with concern for a left re ctus abdominal muscle hematoma and active extravasation. Acute blood loss anemia L flank/hip hematoma Left rectus abdominal hematoma Hematuria - Patient [facility] with 2-day hx of LLQ pain, 10/10 bot h sharp and dull and now progressing toward her midline - She denies any melena or hematochezia - 11/04/20 CT a/p: complex enlargement and fluid collection within the left rect us abdominal muscle extending into the retroperitoneum and left pelvic musculatu re suggestive of active extravasation - Hgb 8.1 at outside hospital -Hgb 7.7 on admission - Patient had been taking her warfarin and bridging with Lovenox -Vitamin K given in ED -INR 1.3, was 2.5 on admission -Patient typed and crossed, consented for blood products -Patient denies hematemesis, melena, hematochezia. No concern for GI bleed at t his time. -11/05/2020: Patient had episode of hematuria with drop in hemoglobin to 6.5. Be came hypotensive following blood transfusion, repeat hemoglobin of 4.5, IR shahrzad stout, patient taken for embolization of inferior epigastric artery on 11/06/2020 -Cardiology consulted 11/07 regarding risk/benefit of anticoagulation in setting of mechanical heart valve and high risk bleeding. Recommendations: -Resume warfarin once bleeding subsides -INR goal of 1.6-2.0 -Do not bridge with heparin/lovenox - status post 1u pRBC on 11/07, 3 units PRBC on 11/06 -Trevino placed 11/08 draining bloody urine with no monica blood - 11/08 Vaginal exam with evidence of vaginal blood - 11/08 L flank and hip hematoma discovered on rounds -Plt 203, Fibrinogen 347, haptoglobin <30, LDH 241 -CT a/p 11/08/20 -stable slight improvement of left hemipelvis rectus hematoma, s mall to moderate simple abdominal and pelvic ascites, cirrhosis, small right ple ural effusion, mild body wall edema, no mention of retroperitoneal hemorrhage -Heparin DC'd 11/05 -Consulted hematology, thought L rectus hematoma was from Lovenox injections. Ag hawa with cardiology recommendation to not bridge with Lovenox when warfarin is restarted. Signed off. - Consulted urology, patient not having significant hematuria to warrant inpatie nt cystoscopy and CT urogram. Will arrange outpatient. Signed off. -Restarted coumadin 4mg 11/11, with no bridge per heme/cards recs. INR 1.3 today PLAN: > Hemoglobin stable at 8.0 today. > Cont Coumadin 4 mg > Continue INR and CBC checks daily >Flush trevino q12 hrs Non-ischemic cardiomyopathy Chronic heart failure with preserved ejection fraction Severe TR - Follows with Dr. 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 PLAN: > Coumadin per above >INR goal 1.6-2.0 per Cardiology recs above Urinary retention - Bladder scan 685 ml and 356 on 11/08 - Trevino placed 11/08 - Possibly having bladder capacity affected by compressing rectus hematoma PLAN: > Will attempt voiding trial prior to discharge Paroxysmal atrial fibrillation - Went into AF with RVR during 10/20-10/26 admission, given metoprolol and amiod arone likely 2/2 active GIB - Was not discharged on anti-arrhythmic therapy Cirrhosis Hx of colonic AVMs - Follows with Dr. Marti - Unclear etiology though pt states it was related to lymphoma treatment, patigabriela t was admitted from 10/20-10/26 for decompensated cirrhosis in setting of ascite s and volume overload - Underwent Flex sig with sigmoid dieulafoy s/p epinephrine, bipolar cautery, he moclips x 2 with successful hemostasis; received 6 units of pRBCs and 1 unit of FFP - No asterixis on exam -Patient reports no history of esophageal varices -Meld 14 on 11/09/2020 PLAN: > Daily MELD labs > Continue PPI daily Remote hx of lymphoma - s/p chemotherapy in 2004 FEN: no IVF, electrolytes reviewed, Cardiac diet with Na and H2O restriction. Prophalyxis: holding in setting of high risk bleed Disposition: Admit to inpatient. Code status: Full (Discussed on 11/04/2020) Patient seen and discussed with Dr. Mark Rodgers, DO Leanrdo Cullen MD Internal Medicine, PGY1 Available on Voalte Pager: [phone] Subjective Interval history: No acute events overnight. Pt seen this AM at bedside. She had some urinary retention last night with subsequent bladder pain. She told her nu rse and the nurse flushed the trevino,relieving her urinary retention. Has continu ed to have blood intermixed with urine. Denies CP, SOB, Abdominal pain, N/V, fev er, & chills. Review of Systems: A comprehensive 12 point review of symptoms was negative except for as noted in the subjective history. Objective Vital Signs: Last Filed Vital Signs: 24 Miguel r Range BP: 98/61 (11/13 824) Temp: 36.7 C (98 F) (11/13 824) Pulse: 96 (11/13 824) Respirations: 18 PER MINUTE (11/13 824) SpO2: 96 % (11/13 824) BP: (94-110)/(55-67) Temp: [36.6 C (97.8 F)-37.2 C (98.9 F)] Pulse: [78-97] Respirations: [16 PER MINUTE-20 PER MINUTE] SpO2: [96 %-100 %] Vitals: 11/10/20 0501 11/11/20 0600 11/12/20 0613 Weight: 64.2 kg (141 lb 9.6 oz) 64 kg (141 lb 1.5 oz) 64.2 kg (141 lb 9.6 oz) Intake/Output Summary: (Last 24 hours) Intake/Output Summary (Last 24 hours) at 11/13/2020 1142 Last data filed at 11/13/2020 1027 Gross per 24 hour Intake 470 ml Output 1675 ml Net -1205 ml Stool Occurrence: 1 Physical Exam Physical Exam General: Well-Developed, NAD, Aox3 Skin: warm, no ulcers or xanthomas. Bilateral echymosis on right & left hip/ flank. HEENT: Normocephalic, atraumatic, anicteric sclera Heart: RRR, no murmurs rubs or gallops Lung: CTABL, normal respiratory effort Abdomen: Soft, nondistended, nontender, normoactive bowel sounds Ext: No GREGORY, cyanosis, clubbing Neuro: Sensation and motor grossly intact. Moving all extremities spontaneously Psyche: Affect normal Medications Medications Scheduled Meds:acetaminophen (TYLENOL EXTRA STRENGTH) tablet 500 mg, 500 mg, Ora l, Q6H* bumetanide (BUMEX) tablet 2 mg, 2 mg, Oral, BID(9-17) levothyroxine (SYNTHROID) tablet 75 mcg, 75 mcg, Oral, QDAY 30 min before breakf ast pantoprazole DR (PROTONIX) tablet 40 mg, 40 mg, Oral, QDAY(21) potassium chloride SR (K-DUR) tablet 30 mEq, 30 mEq, Oral, ONCE sertraline (ZOLOFT) tablet 100 mg, 100 mg, Oral, QDAY warfarin (COUMADIN) tablet 4 mg, 4 mg, Oral, QHS Continuous Infusions: PRN and Respiratory Meds:oxyCODONE Q6H PRN, prochlorperazine maleate Q6H PRN, tr imethobenzamide Q6H PRN, warfarin QHS AND warfarin, pharmacy to manage Per P harmacy * Otto Hayes MD - 11/12/2020 9:12 AM CDT General Progress Note Name: Zaria Paulson Today's Date: 11/12/2020 Admission Date: 11/04/2020 LOS: 8 days Assessment and Plan Principal Problem: Nontraumatic rectus hematoma Active Problems: Transfusion reaction Ms. Paulson is a 60yo F with a PMH of cirrhosis from unclear etiology, non-ischem ic cardiomyopathy, chronic heart failure with preserved ejection fraction, mecha nical aortic valve on warfarin, paroxysmal atrial fibrillation, and remote hx of lymphoma who presented via transfer from [facility] with concern for a left re ctus abdominal muscle hematoma and active extravasation. Acute blood loss anemia L flank/hip hematoma Left rectus abdominal hematoma Hematuria - Patient presented to [facility] with 2-day hx of LLQ pain, 10/10 bot h sharp and dull and now progressing toward her midline - She denies any melena or hematochezia - 11/04/20 CT a/p: complex enlargement and fluid collection within the left rect us abdominal muscle extending into the retroperitoneum and left pelvic musculatu re suggestive of active extravasation - Hgb 8.1 at outside hospital -Hgb 7.7 on admission - Patient had been taking her warfarin and bridging with Lovenox -Vitamin K given in ED -INR 1.3, was 2.5 on admission -Patient typed and crossed, consented for blood products -Patient denies hematemesis, melena, hematochezia. No concern for GI bleed at t his time. -11/05/2020: Patient had episode of hematuria with drop in hemoglobin to 6.5. Be came hypotensive following blood transfusion, repeat hemoglobin of 4.5, IR shahrzad stout, patient taken for embolization of inferior epigastric artery on 11/06/2020 -Cardiology consulted 11/07 regarding risk/benefit of anticoagulation in setting of mechanical heart valve and high risk bleeding. Recommendations: -Resume warfarin once bleeding subsides -INR goal of 1.6-2.0 -Do not bridge with heparin/lovenox - status post 1u pRBC on 11/07, 3 units PRBC on 11/06 -Trevino placed 11/08 draining bloody urine with no monica blood - 11/08 Vaginal exam with evidence of vaginal blood - 11/08 L flank and hip hematoma discovered on rounds -Plt 203, Fibrinogen 347, haptoglobin <30, LDH 241 -CT a/p 11/08/20 -stable slight improvement of left hemipelvis rectus hematoma, s mall to moderate simple abdominal and pelvic ascites, cirrhosis, small right ple ural effusion, mild body wall edema, no mention of retroperitoneal hemorrhage -Heparin DC'd 11/05 -Consulted hematology, thought L rectus hematoma was from Lovenox injections. Ag hawa with cardiology recommendation to not bridge with Lovenox when warfarin is restarted. Signed off. - Consulted urology, patient not having significant hematuria to warrant inpatie nt cystoscopy and CT urogram. Will arrange outpatient. Signed off. -Restarted coumadin 4mg 11/11, with no bridge per heme/cards recs PLAN: > Hemoglobin stable at 8.2 today. > Cont Coumadin 4 mg > Continue INR and CBC checks daily Non-ischemic cardiomyopathy Chronic heart failure with preserved ejection fraction Severe TR - Follows with Dr. 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 -BP 90s over 50s -Cardiology Heart Failure consulted, Recommendations: -Restart bumex 4mg po BID -Resume VEGETABLE WASHING MACHINE OPERATOR metolazone at discharge - 2000mg salt restriction, 1.5L fluid restriction -Strict I/O, daily standing weight PLAN: > Continue Bumex 2mg po bid >2000mg salt restriction, 1.5L fluid restriction >Strict I/O, daily standing weight Mechanical aortic valve - Implanted 2010 - VEGETABLE WASHING MACHINE OPERATOR warfarin 5mg daily, was bridging with Lovenox from prior admission -INR goal 1.6-2.0 per Cardiology recs above -Patient given vitamin K on admission -INR 1.2, 2.5 on admission. PLAN: > Coumadin per above Urinary retention - Bladder scan 685 ml and 356 on 11/08 - Trevino placed 11/08 - Possibly having bladder capacity affected by compressing rectus hematoma PLAN: > Will attempt voiding trial prior to discharge Paroxysmal atrial fibrillation - Went into AF with RVR during 10/20-10/26 admission, given metoprolol and amiod arone likely 2/2 active GIB - Was not discharged on anti-arrhythmic therapy Cirrhosis Hx of colonic AVMs - Follows with Dr. Marti - Unclear etiology though pt states it was related to lymphoma treatment, patien t was admitted from 10/20-10/26 for decompensated cirrhosis in setting of ascite s and volume overload - Underwent Flex sig with sigmoid dieulafoy s/p epinephrine, bipolar cautery, he moclips x 2 with successful hemostasis; received 6 units of pRBCs and 1 unit of FFP - No asterixis on exam -Patient reports no history of esophageal varices -Meld 14 on 11/09/2020 PLAN: > Daily MELD labs > Continue PPI daily Remote hx of lymphoma - s/p chemotherapy in 2004 FEN: no IVF, electrolytes reviewed, Cardiac diet with Na and H2O restriction. Prophalyxis: holding in setting of high risk bleed Disposition: Admit to inpatient. Code status: Full (Discussed on 11/04/2020) Patient seen and discussed with MD Otto Mcallister MD Internal Medicine, PGY-1 Available on Voalte [phone] Subjective No acute overnight events. She reports feeling okay today, however is discourage d by prospect of tenuous balance between clotting and bleeding. She is agreeabl e to restarting warfarin. Reports continued hematuria worse after she is standi ng. Still has minimal appetite, but tolerating regular diet. She denies any hem atochezia or melena. Trevino with lightly blood-tinged urine in tube. Review of Systems: Review of Systems Constitutional: Negative for chills and fever. Respiratory: Negative for cough and shortness of breath. Cardiovascular: Negative for chest pain and palpitations. Gastrointestinal: Positive for abdominal pain (Pressure) and nausea. Negative fo r vomiting. Genitourinary: Positive for hematuria. Musculoskeletal: Negative for myalgias. Skin: Negative for rash. Neurological: Negative for dizziness and headaches. Endo/Heme/Allergies: Bruises/bleeds easily. Objective Vital Signs: Last Filed Vital Signs: 24 Miguel r Range BP: 104/58 (11/13 847) Temp: 36.7 C (98.1 F) (11/13 847) Pulse: 98 (11/13 847) Respirations: 17 PER MINUTE (11/13 847) SpO2: 96 % (11/13 847) BP: (94-104)/(55-64) Temp: [36.6 C (97.8 F)-37.1 C (98.8 F)] Pulse: [94-106] Respirations: [16 PER MINUTE-18 PER MINUTE] SpO2: [96 %-100 %] Intensity Pain Scale (Self Report): 2 (11/12/20 0433) Vitals: 11/10/20 0501 11/11/20 0600 11/12/20 0613 Weight: 64.2 kg (141 lb 9.6 oz) 64 kg (141 lb 1.5 oz) 64.2 kg (141 lb 9.6 oz) Intake/Output Summary: (Last 24 hours) Intake/Output Summary (Last 24 hours) at 11/12/2020 0912 Last data filed at 11/12/2020 0613 Gross per 24 hour Intake 1210 ml Output 950 ml Net 260 ml Stool Occurrence: 1 Physical Exam General Appearance: NAD, appears stated age, ill-appearing Skin: warm, dry, no ulcers or xanthomas, Very large hematoma extending from Left CVA to Proximal left hip at approximately the greater trochanter with some yell owing of the hematoma, unchanged from yesterday. Second hematoma roughly 15cm on Right hip with yellowing around edges, unchanged from yesterday. Minimally ten danielle to palpation Eyes: conjunctivae and lids normal, pupils are equal and round, no scleral icter us Lips & Oral Mucosa: no pallor or cyanosis Respiratory Effort: breathing comfortably, no respiratory distress Auscultation/Percussion: lungs clear to auscultation, no rales or rhonchi, no wh eezing Cardiac Rhythm: regular rhythm and normal rate Cardiac Auscultation: Loud blowing systolic murmur in the tricuspid region radia ting to abdomen, mechanical S2 click consistent with aortic valve. Carotid Arteries:no bruit, no JVD Lower Extremity Edema: no lower extremity edema, right femoral artery access sit e with dressing in place clean, dry, and intact. Abdominal Exam: Protuberant, soft, tender in left lower quadrant without guardin g or rebound, notable induration without erythema, mild ecchymoses in left lower quadrant consistent with Lovenox injection sites. No masses, bowel sounds norm al Language and Memory: Alert and attentive to conversation, able to respond approp riately when alert. Neurologic Exam: neurological assessment grossly intact Medications Medications Scheduled Meds:acetaminophen (TYLENOL EXTRA STRENGTH) tablet 500 mg, 500 mg, Ora l, Q6H* bumetanide (BUMEX) tablet 2 mg, 2 mg, Oral, BID(9-17) levothyroxine (SYNTHROID) tablet 75 mcg, 75 mcg, Oral, QDAY 30 min before breakf ast pantoprazole DR (PROTONIX) tablet 40 mg, 40 mg, Oral, QDAY(21) sertraline (ZOLOFT) tablet 100 mg, 100 mg, Oral, QDAY warfarin (COUMADIN) tablet 4 mg, 4 mg, Oral, QHS Continuous Infusions: PRN and Respiratory Meds:oxyCODONE Q6H PRN, prochlorperazine maleate Q6H PRN, tr imethobenzamide Q6H PRN, warfarin QHS AND warfarin, pharmacy to manage Per P harmacy Associated attestation - Aristeo Reveles MD - 11/12/2020 8:44 PM CDT ATTESTATION I personally performed the turpin portions of the E/M visit, discussed case with re sident and concur with resident documentation of history, physical exam, assessm ent, and treatment plan unless otherwise noted. Patient with mechanical AV: with varius bleeding/ hematomas (rectus sheath and f lank hematoma)/ hematuria on AC. Her Hb seems stable in last few days and was st arted on Coumadin only without bridging on 11/11. New goal INR of 1.6-2 (new goal INR because of recurrent bleed). Continue to monitor CBC qD and INR for re blee ding. She is extremely high risk for thrombosis and embolization from AV clots a nd was discussed with patient who expressed understanding. Today she reported more hematuria: her urine is coca -cola colored. Hb is stable and her INR is only 1.2 today.Will reengage with urology to consider inpatient workup for her hematuria over OP workup as suspect this may delay discharge proc ess. Her hematomas appear stable. Compexity of decision making high. 35 minutes were spent with >50% time spent face to face or on floor. Staff name: Aristeo Reveles MD Date: 11/12/2020 * Maggi Salamanca RN - 11/12/2020 6:58 AM CDT Heart Failure Nursing Progress Note Admission Date: 11/04/2020 LOS: 8 days Admission Weight: 63.8 kg (140 lb 9.6 oz) Most recent weights (inpatient): Vitals: 11/10/20 0501 11/11/20 0600 11/12/20 0613 Weight: 64.2 kg (141 lb 9.6 oz) 64 kg (141 lb 1.5 oz) 64.2 kg (141 lb 9.6 oz) Weight change from previous day: +0.2kg Fluid restriction ordered: 1.5L Intake/Output Summary: (Last 24 hours) Intake/Output Summary (Last 24 hours) at 11/12/2020 0659 Last data filed at 11/12/2020 0613 Gross per 24 hour Intake 1210 ml Output 1075 ml Net 135 ml Is patient incontinent No Anticipated discharge date: TBD Discharge goals: Avoid readmit Daily Assessment of Patient Stated Goals: Short Term Goal Identified by patient (Short Term=during hospitalization): Feel better overall * Roxanne Orozco, PHARMD - 11/11/2020 7:22 PM CDT Pharmacy Warfarin Note Subjective: Pharmacy consulted to assist with management of warfarin therapy. Objective: Zaria Paulson is a 60 y.o. female receiving warfarin for Mechanical AVR Comme nt: Mechanical AVR. Current Warfarin Orders Medication Dose Route Frequency warfarin (COUMADIN) tablet 4 mg 4 mg Oral QHS And warfarin, pharmacy to manage 1 each Service Per Pharmacy Bridge therapy: none per cards/heme. Warfarin dose for Ms. Paulson prior to admission: 7.5 Mon, 5 AOD INR Date/Time Value Ref Range Status 11/11/2020 0605 1.3 (H) 0.8 - 1.2 Final 11/10/2020 1002 1.2 0.8 - 1.2 Final 11/09/2020 0543 1.3 (H) 0.8 - 1.2 Final Assessment: Goal INR for Ms. Paulson is Other (comment) Comment: 1.6-2 for Mechanical AVR Com ment: Mechanical AVR. INR: INR (no units) Date/Time Value 11/11/2020 0605 1.3 (H) Plan: 1. Will restart warfarin at 4mg and no bridge. 2. Next INR: Tomorrow 3. Pharmacy will [...] no longer be managed by Pharmac y Roaxnne Orozco PHARMD 11/11/2020 * Otto Hayes MD - 11/11/2020 7:07 PM CDT General Progress Note Name: Zaria Paulson Today's Date: 11/11/2020 Admission Date: 11/04/2020 LOS: 7 days Assessment and Plan Principal Problem: Nontraumatic rectus hematoma Active Problems: Transfusion reaction Ms. Paulson is a 60yo F with a PMH of cirrhosis from unclear etiology, non-ischem ic cardiomyopathy, chronic heart failure with preserved ejection fraction, mecha nical aortic valve on warfarin, paroxysmal atrial fibrillation, and remote hx of lymphoma who presented via transfer from [facility] with concern for a left re ctus abdominal muscle hematoma and active extravasation. Acute blood loss anemia L flank/hip hematoma Left rectus abdominal hematoma Hematuria - Patient presented to [facility] with 2-day hx of LLQ pain, 10/10 bot h sharp and dull and now progressing toward her midline - She denies any melena or hematochezia - 11/04/20 CT a/p: complex enlargement and fluid collection within the left rect us abdominal muscle extending into the retroperitoneum and left pelvic musculatu re suggestive of active extravasation - Hgb 8.1 at outside hospital -Hgb 7.7 on admission - Patient had been taking her warfarin and bridging with Lovenox -Vitamin K given in ED -INR 1.3, was 2.5 on admission -Patient typed and crossed, consented for blood products -Patient denies hematemesis, melena, hematochezia. No concern for GI bleed at t his time. -11/05/2020: Patient had episode of hematuria with drop in hemoglobin to 6.5. Be came hypotensive following blood transfusion, repeat hemoglobin of 4.5, IR shahrzad stout, patient taken for embolization of inferior epigastric artery on 11/06/2020 -Cardiology consulted 11/07 regarding risk/benefit of anticoagulation in setting of mechanical heart valve and high risk bleeding. Recommendations: -Resume warfarin once bleeding subsides -INR goal of 1.6-2.0 -Do not bridge with heparin/lovenox - status post 1u pRBC on 11/07, 3 units PRBC on 11/06 -Trevino placed 11/08 draining bloody urine with no monica blood - 11/08 Vaginal exam with evidence of vaginal blood - 11/08 L flank and hip hematoma discovered on rounds -Plt 203, Fibrinogen 347, haptoglobin <30, LDH 241 -CT a/p 11/08/20 -stable slight improvement of left hemipelvis rectus hematoma, s mall to moderate simple abdominal and pelvic ascites, cirrhosis, small right ple ural effusion, mild body wall edema, no mention of retroperitoneal hemorrhage -Last Anticoagulation: heparin 11/05 -Consulted hematology, thought L rectus hematoma was from Lovenox injections. Ag hawa with cardiology recommendation to not bridge with Lovenox when warfarin is restarted. Signed off. - Consulted urology, patient not having significant hematuria to warrant inpatie nt cystoscopy and CT urogram. Will arrange outpatient. Signed off. PLAN: > Hemoglobin stable at 7.9 today. > We will start Coumadin 3 mg tonight, discussed with hematology, will not initiate heparin or Lovenox bridge. > Continue INR and CBC checks daily Non-ischemic cardiomyopathy Chronic heart failure with preserved ejection fraction Severe TR - Follows with Dr. 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 PLAN: > Hold anticoagulation per above Urinary retention - Bladder scan 685 ml and 356 on 11/08 - Trevino placed 11/08 - Possibly having bladder capacity affected by compressing rectus hematoma PLAN: > Will attempt voiding trial prior to discharge Paroxysmal atrial fibrillation - Went into AF with RVR during 10/20-10/26 admission, given metoprolol and amiod arone likely 2/2 active GIB - Was not discharged on anti-arrhythmic therapy Cirrhosis Hx of colonic AVMs - Follows with Dr. Marti - Unclear etiology though pt states it was related to lymphoma treatment, kamar gasca was admitted from 10/20-10/26 for decompensated cirrhosis in setting of ascite s and volume overload - Underwent Flex sig with sigmoid dieulafoy s/p epinephrine, bipolar cautery, he moclips x 2 with successful hemostasis; received 6 units of pRBCs and 1 unit of FFP - No asterixis on exam -Patient reports no history of esophageal varices -Meld 14 on 11/09/2020 PLAN: > Daily MELD labs > Continue PPI daily Remote hx of lymphoma - s/p chemotherapy in 2004 FEN: no IVF, electrolytes reviewed, Cardiac diet with Na and H2O restriction. Prophalyxis: holding in setting of high risk bleed Disposition: Admit to inpatient. Code status: Full (Discussed on 11/04/2020) Patient seen and discussed with MD Otto Mcallister MD Internal Medicine, PGY-1 Available on Voalte [phone] Subjective No acute overnight events. She reports continued left lower quadrant pressure, however states this is relieved with bowel movements today. Still has minimal ap petite, but tolerating regular diet. She denies any hematochezia or melena. Fole y still draining cola colored urine. Review of Systems: Review of Systems Constitutional: Negative for chills and fever. Respiratory: Negative for cough and shortness of breath. Cardiovascular: Negative for chest pain and palpitations. Gastrointestinal: Positive for abdominal pain (Pressure) and nausea. Negative fo r vomiting. Genitourinary: Positive for hematuria. Musculoskeletal: Negative for myalgias. Skin: Negative for rash. Neurological: Negative for dizziness and headaches. Endo/Heme/Allergies: Bruises/bleeds easily. Objective Vital Signs: Last Filed Vital Signs: 24 Miguel r Range BP: 101/56 (11/11 1621) Temp: 36.6 C (97.8 F) (11/11 1621) Pulse: 106 (11/11 1621) Respirations: 18 PER MINUTE (11/11 1621) SpO2: 99 % (11/11 1621) SpO2 Pulse: 95 (11/11 822) BP: (97-101)/(56-60) Temp: [36.5 C (97.7 F)-37.1 C (98.8 F)] Pulse: [81-106] Respirations: [18 PER MINUTE] SpO2: [96 %-99 %] Intensity Pain Scale (Self Report): 0 (11/11/20 0600) Vitals: 11/08/20 0618 11/10/20 0501 11/11/20 0600 Weight: 65.5 kg (144 lb 6.4 oz) 64.2 kg (141 lb 9.6 oz) 64 kg (141 lb 1.5 oz) Intake/Output Summary: (Last 24 hours) Intake/Output Summary (Last 24 hours) at 11/11/2020 1907 Last data filed at 11/11/2020 1622 Gross per 24 hour Intake 1060 ml Output 1375 ml Net -315 ml Stool Occurrence: 1 Physical Exam General Appearance: NAD, appears stated age, ill-appearing Skin: warm, dry, no ulcers or xanthomas, Very large hematoma extending from Left CVA to Proximal left hip at approximately the greater trochanter with some yell owing of the hematoma, unchanged from yesterday. Second hematoma roughly 15cm on Right hip with yellowing around edges, unchanged from yesterday. Minimally ten danielle to palpation Eyes: conjunctivae and lids normal, pupils are equal and round, no scleral icter us Lips & Oral Mucosa: no pallor or cyanosis Respiratory Effort: breathing comfortably, no respiratory distress Auscultation/Percussion: lungs clear to auscultation, no rales or rhonchi, no wh eezing Cardiac Rhythm: regular rhythm and normal rate Cardiac Auscultation: Loud blowing systolic murmur in the tricuspid region radia ting to abdomen, mechanical S2 click consistent with aortic valve. Carotid Arteries:no bruit, no JVD Lower Extremity Edema: no lower extremity edema, right femoral artery access sit e with dressing in place clean, dry, and intact. Abdominal Exam: Protuberant, soft, tender in left lower quadrant without guardin g or rebound, notable induration without erythema, mild ecchymoses in left lower quadrant consistent with Lovenox injection sites. No masses, bowel sounds norm al Language and Memory: Alert and attentive to conversation, able to respond approp riately when alert. Neurologic Exam: neurological assessment grossly intact Medications Medications Scheduled Meds:acetaminophen (TYLENOL EXTRA STRENGTH) tablet 500 mg, 500 mg, Ora l, Q6H* bumetanide (BUMEX) tablet 2 mg, 2 mg, Oral, BID(9-17) levothyroxine (SYNTHROID) tablet 75 mcg, 75 mcg, Oral, QDAY 30 min before breakf ast pantoprazole DR (PROTONIX) tablet 40 mg, 40 mg, Oral, QDAY(21) sertraline (ZOLOFT) tablet 100 mg, 100 mg, Oral, QDAY warfarin (COUMADIN) tablet 3 mg, 3 mg, Oral, QHS Continuous Infusions: PRN and Respiratory Meds:oxyCODONE Q6H PRN, prochlorperazine maleate Q6H PRN, tr imethobenzamide Q6H PRN, warfarin QHS AND warfarin, pharmacy to manage Per P harmacy Associated attestation - Aristeo Reveles MD - 11/12/2020 1:36 AM CDT ATTESTATION I personally performed the turpin portions of the E/M visit, discussed case with re sident and concur with resident documentation of history, physical exam, assessm ent, and treatment plan unless otherwise noted. Patient with mechanical AV: with varius bleeding/ hematomas (rectus sheath and f lank hematoma) on AC. Her Hb seems stable in last 3-4 days. Discussed with hemat ology fellow: risk of thrombosis with re -initiation of coumadin without bridgin g low and ok with restarting with goal INR of 1.6-2 (new goal INR because of rec urrent bleed). Will restart Coumadin and continue to monitor CBC qD and INR for re bleeding. She is extremely high risk for thrombosis and embolization from AV clots and was discussed with patient who expressed understanding. Compexity of decision making high. 35 minutes were spent with >50% time spent face to face or on floor. Staff name: Aristeo Reveles MD Date: 11/11/2020 * Jennifer Simmons RN - 11/11/2020 5:42 PM CDT Heart Failure Nursing Progress Note Admission Date: 11/04/2020 LOS: 7 days Admission Weight: 63.8 kg (140 lb 9.6 oz) Most recent weights (inpatient): Vitals: 11/08/20 0618 11/10/20 0501 11/11/20 0600 Weight: 65.5 kg (144 lb 6.4 oz) 64.2 kg (141 lb 9.6 oz) 64 kg (141 lb 1.5 oz) Weight change from previous day: -.2kg Fluid restriction ordered: 1.5 L Intake/Output Summary: (Last 24 hours) Intake/Output Summary (Last 24 hours) at 11/11/2020 1742 Last data filed at 11/11/2020 1622 Gross per 24 hour Intake 1060 ml Output 1375 ml Net -315 ml Is patient incontinent No Anticipated discharge date: TBD Discharge goals: Coagulation treatment Daily Assessment of Patient Stated Goals: Short Term Goal Identified by patient (Short Term=during hospitalization): To continue to adhere to fluid restriction * Ale Cazares RN - 11/11/2020 6:40 AM CDT Heart Failure Nursing Progress Note Admission Date: 11/04/2020 LOS: 7 days Admission Weight: 63.8 kg (140 lb 9.6 oz) Most recent weights (inpatient): Vitals: 11/08/20 0618 11/10/20 0501 11/11/20 0600 Weight: 65.5 kg (144 lb 6.4 oz) 64.2 kg (141 lb 9.6 oz) 64 kg (141 lb 1.5 oz) Weight change from previous day: -0.2 kg Fluid restriction ordered: 1.5L FR Intake/Output Summary: (Last 24 hours) Intake/Output Summary (Last 24 hours) at 11/11/2020 0640 Last data filed at 11/11/2020 0600 Gross per 24 hour Intake 1056 ml Output 1600 ml Net -544 ml Is patient incontinent No Anticipated discharge date: TBD Discharge goals: Diurese, anticoagulation Daily Assessment of Patient Stated Goals: Short Term Goal Identified by patient (Short Term=during hospitalization): Determine bleeding, decrease weight * Ale Cazares RN - 11/11/2020 6:40 AM CDT Education Documentation Symptoms of a Catheter Associated Urinary Tract Infection, taught by Emmett Cazares RN at 11/11/2020 6:36 AM. Learner: Patient Readiness: Acceptance Method: Explanation Response: Verbalizes Understanding CAUTI Prevention Techniques, taught by Ale Cazares RN at 11/11/2020 6:36 AM. Learner: Patient Readiness: Acceptance Method: Explanation Response: Verbalizes Understanding Urinary catheter home care, taught by Ale Cazares RN at 11/11/2020 6:36 AM. Learner: Patient Readiness: Acceptance Method: Explanation Response: Verbalizes Understanding Perineal care, taught by Ale Cazares RN at 11/11/2020 6:36 AM. Learner: Patient Readiness: Acceptance Method: Explanation Response: Verbalizes Understanding Education Comments No comments found. * Mariel Llanes RN - 11/10/2020 7:10 PM CDT Heart Failure Nursing Progress Note Admission Date: 11/04/2020 LOS: 6 days Admission Weight: 63.8 kg (140 lb 9.6 oz) Most recent weights (inpatient): Vitals: 11/07/20 0641 11/08/20 0618 11/10/20 0501 Weight: 66.2 kg (145 lb 15.1 oz) 65.5 kg (144 lb 6.4 oz) 64.2 kg (141 lb 9.6 oz) Weight change from previous day: +3.2 Fluid restriction ordered: 1.5L Intake/Output Summary: (Last 24 hours) Intake/Output Summary (Last 24 hours) at 11/10/2020 191 Last data filed at 11/10/2020 1616 Gross per 24 hour Intake 1031 ml Output 1400 ml Net -369 ml Is patient incontinent No Anticipated discharge date: 11/14 Discharge goals: Anticoagulation Daily Assessment of Patient Stated Goals: Short Term Goal Identified by patient (Short Term=during hospitalization): Stay on fluid restriction * Crissy Tee DO - 11/10/2020 5:34 PM CDT General Progress Note Name: Zaria Paulson Today's Date: 11/10/2020 Admission Date: 11/04/2020 LOS: 6 days Assessment and Plan Principal Problem: Nontraumatic rectus hematoma Active Problems: Transfusion reaction Ms. Paulson is a 60yo F with a PMH of cirrhosis from unclear etiology, non-ischem ic cardiomyopathy, chronic heart failure with preserved ejection fraction, mecha nical aortic valve on warfarin, paroxysmal atrial fibrillation, and remote hx of lymphoma who presented via transfer from [facility] with concern for a left re ctus abdominal muscle hematoma and active extravasation. Acute blood loss anemia L flank/hip hematoma Left rectus abdominal hematoma Hematuria - Patient presented to [facility] with 2-day hx of LLQ pain, 10/10 bot h sharp and dull and now progressing toward her midline - She denies any melena or hematochezia - 11/04/20 CT a/p: complex enlargement and fluid collection within the left rect us abdominal muscle extending into the retroperitoneum and left pelvic musculatu re suggestive of active extravasation - Hgb 8.1 at outside hospital -Hgb 7.7 on admission - Patient had been taking her warfarin and bridging with Lovenox -Vitamin K given in ED -INR 1.3, was 2.5 on admission -Patient typed and crossed, consented for blood products -Patient denies hematemesis, melena, hematochezia. No concern for GI bleed at t his time. -11/05/2020: Patient had episode of hematuria with drop in hemoglobin to 6.5. Be came hypotensive following blood transfusion, repeat hemoglobin of 4.5, IR shahrzad stout, patient taken for embolization of inferior epigastric artery on 11/06/2020 -Cardiology consulted 11/07 regarding risk/benefit of anticoagulation in setting of mechanical heart valve and high risk bleeding. Recommendations: -Resume warfarin once bleeding subsides -INR goal of 1.6-2.0 -Do not bridge with heparin/lovenox - status post 1u pRBC on 11/07, 3 units PRBC on 11/06 -Trevino placed 11/08 draining bloody urine with no monica blood - 11/08 Vaginal exam with evidence of vaginal blood - 11/08 L flank and hip hematoma discovered on rounds -Plt 203, Fibrinogen 347, haptoglobin <30, LDH 241 -CT a/p 11/08/20 -stable slight improvement of left hemipelvis rectus hematoma, s mall to moderate simple abdominal and pelvic ascites, cirrhosis, small right ple ural effusion, mild body wall edema, no mention of retroperitoneal hemorrhage -Last Anticoagulation: heparin 11/05 PLAN: > Hemoglobin improved to 8.7 today. Will continue to monitor for hemoglobin improvement prior to starting anticoagulation. Will continue to hold warfarin and may consider restarting in 2-3 days. > Consulted hematology, thought L rectus hematoma was from Lovenox injections. Agreed with cardiology recommendation to not bridge with Lovenox when warfarin is restarted. Signed off. > Consulted urology, patient not having significant hematuria to warrant inpatient cystoscopy and CT urogram. Will arrange outpatient. Signed off. > Continue INR and CBC checks daily Non-ischemic cardiomyopathy Chronic heart failure with preserved ejection fraction Severe TR - Follows with Dr. 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 PLAN: > Hold anticoagulation per above Urinary retention - Bladder scan 685 ml and 356 on 11/08 - Trevino placed 11/08 - Possibly having bladder capacity affected by compressing rectus hematoma PLAN: > Will attempt voiding trial prior to discharge Paroxysmal atrial fibrillation - Went into AF with RVR during 10/20-10/26 admission, given metoprolol and amiod arone likely 2/2 active GIB - Was not discharged on anti-arrhythmic therapy Cirrhosis Hx of colonic AVMs - Follows with Dr. Marti - Unclear etiology though pt states it was related to lymphoma treatment, patien campos was admitted from 10/20-10/26 for decompensated cirrhosis in setting of ascite s and volume overload - Underwent Flex sig with sigmoid dieulafoy s/p epinephrine, bipolar cautery, he moclips x 2 with successful hemostasis; received 6 units of pRBCs and 1 unit of FFP - No asterixis on exam -Patient reports no history of esophageal varices -Meld 14 on 11/09/2020 PLAN: > Daily MELD labs > Continue PPI daily Remote hx of lymphoma - s/p chemotherapy in 2004 FEN: no IVF, electrolytes reviewed, Cardiac diet with Na and H2O restriction. Prophalyxis: holding in setting of high risk bleed Disposition: Admit to inpatient. Code status: Full (Discussed on 11/04/2020) Patient seen and discussed with Dr. Derrick Tee, DO Internal Medicine, PGY-2 Available on Voalte [phone] Subjective No acute overnight events. She reported worsening left lower quadrant pressure t his morning. She states typically she has a BM overnight and this releases some pain/pressure however it did not today. She denies any hematochezia or melena. Sabrina martinez still draining cola colored urine. Review of Systems: Review of Systems Constitutional: Negative for chills and fever. Respiratory: Negative for cough and shortness of breath. Cardiovascular: Negative for chest pain and palpitations. Gastrointestinal: Positive for abdominal pain (Pressure) and nausea. Negative fo r vomiting. Genitourinary: Positive for hematuria. Musculoskeletal: Negative for myalgias. Skin: Negative for rash. Neurological: Negative for dizziness and headaches. Endo/Heme/Allergies: Bruises/bleeds easily. Objective Vital Signs: Last Filed Vital Signs: 24 Miguel r Range BP: 95/58 (11/10 1704) Temp: 36.6 C (97.8 F) (11/10 1704) Pulse: 96 (11/10 170) Respirations: 18 PER MINUTE (11/10 1704) SpO2: 100 % (11/10 1704) SpO2 Pulse: 94 (11/10 500) Height: 157.5 cm (62.01") (11/10 050) BP: (92-102)/(56-59) Temp: [36.6 C (97.8 F)-36.8 C (98.2 F)] Pulse: [93-109] Respirations: [16 PER MINUTE-18 PER MINUTE] SpO2: [97 %-100 %] Intensity Pain Scale (Self Report): 5 (11/10/20 0820) Vitals: 11/07/20 0641 11/08/20 0618 11/10/20 0501 Weight: 66.2 kg (145 lb 15.1 oz) 65.5 kg (144 lb 6.4 oz) 64.2 kg (141 lb 9.6 oz) Intake/Output Summary: (Last 24 hours) Intake/Output Summary (Last 24 hours) at 11/10/2020 4344 Last data filed at 11/10/2020 1616 Gross per 24 hour Intake 1031 ml Output 1400 ml Net -369 ml Stool Occurrence: 1 Physical Exam General Appearance: NAD, appears stated age, ill-appearing Skin: warm, dry, no ulcers or xanthomas, Very large hematoma extending from Left CVA to Proximal left hip at approximately the greater trochanter with some yell owing of the hematoma. Second hematoma roughly 15cm on Right hip with yellowing around edges, Minimally tender to palpation Eyes: conjunctivae and lids normal, pupils are equal and round, no scleral icter us Lips & Oral Mucosa: no pallor or cyanosis Respiratory Effort: breathing comfortably, no respiratory distress Auscultation/Percussion: lungs clear to auscultation, no rales or rhonchi, no wh eezing Cardiac Rhythm: regular rhythm and normal rate Cardiac Auscultation: Loud blowing systolic murmur in the tricuspid region radia ting to abdomen, mechanical S2 click consistent with aortic valve. Carotid Arteries:no bruit, no JVD Lower Extremity Edema: no lower extremity edema, right femoral artery access sit e with dressing in place clean, dry, and intact. Abdominal Exam: Protuberant, soft, tender in left lower quadrant without guardin g or rebound, notable induration without erythema, mild ecchymoses in left lower quadrant consistent with Lovenox injection sites. No masses, bowel sounds norm al Language and Memory: Alert and attentive to conversation, able to respond approp riately when alert. Neurologic Exam: neurological assessment grossly intact Medications Medications Scheduled Meds:acetaminophen (TYLENOL EXTRA STRENGTH) tablet 500 mg, 500 mg, Ora l, Q6H* bumetanide (BUMEX) tablet 2 mg, 2 mg, Oral, BID(9-17) levothyroxine (SYNTHROID) tablet 75 mcg, 75 mcg, Oral, QDAY 30 min before breakf ast pantoprazole DR (PROTONIX) tablet 40 mg, 40 mg, Oral, QDAY(21) sertraline (ZOLOFT) tablet 100 mg, 100 mg, Oral, QDAY Continuous Infusions: PRN and Respiratory Meds:oxyCODONE Q6H PRN, prochlorperazine maleate Q6H PRN, tr imethobenzamide Q6H PRN Associated attestation - Derrick Meza MD - 11/10/2020 8:30 PM CDT I personally performed the turpin portions of the E/M visit, discussed case with Me d [address] Tee concur with her documentation of history, physical exam , assessment, and treatment plan unless otherwise outlined with my notations. Was having abdominal fullness but no pain. No new ecchymosis and distension note d. Hemoglobin is better today - 8.7. Will continue to monitor Hematology consulted - feel the left rectus sheet hematoma was because of Loveno x injections. Plan not to bridge at the time of Warfarin initiation. Goal is niesha pinedo 1.6- 2. Derrick Meza MD Department of Internal Medicine, Hospitalist [phone] * Lizbet Chan, RD - 11/10/2020 2:55 PM CDT CLINICAL NUTRITION Clinical Nutrition Initial Assessment Name: Zaria Paulson : 1960 Age : 60 y.o. Admission Date: 11/04/2020 LOS: 6 days Recommendation: Agree with current diet order. Offer Boost PRN. Comments: 60yo F with a PMH of cirrhosis from unclear etiology (possible chemo-induced), n on-ischemic cardiomyopathy, chronic heart failure with preserved ejection fracti on, mechanical aortic valve on warfarin, paroxysmal atrial fibrillation, and rem ote hx of lymphoma who presented from OSH for abdominal pain. S/p IR embolizatio n for hematoma 11/06. CT a/p 11/08/20 -stable slight improvement of left hemipelvi s rectus hematoma, small to moderate simple abdominal and pelvic ascites, cirrho sis, small right pleural effusion, mild body wall edema, no mention of retroperi toneal hemorrhage. Pt with staff on multiple attempts today. Pt recently admitte d and seen by Clinical Nutrition on 10/24/20. Per 10/24 note: "reports poor po in take for the past 6 months. She has nausea in the morning with occasional emesis . She would spend a whole day trying to finish a can of spaghetti O's. She repor ts she has had low serum sodium in the past and was told she didn't have to foll ow a special diet. Her son encourages her to increase her protein intake, he anna ght her unflavored protein powder. She lives at home and her prepares he r meals She reports her UBW is 130 pounds. Patient appears to have significan t fluid fluctuations between 130-160 pounds." Will continue to monitor. Nutrition Assessment of Patient: Admit Weight: 65 kg (11/05 Bed Scale, 1st sourced weight); ; Desired Weight: 61. 7 kg BMI (Calculated): 25.89; BMI Categories Adult: Over Weight: 25-29.9; Appearance: Unable to observe Pertinent Allergies/Intolerances: NA Pertinent Labs: Na 133, Cr 1.18 T Bili 1.5; Pertinent Meds: synthroid, protonix, compazine, tigan; Oral Diet Order: Cardiac;1500 mL/day fluid restriction; Current Oral Intake: Marginally Adequate Estimated Calorie Needs: 1850 kcal (30 kcal/kg DBW 61.7 kg) Estimated Protein Needs: 74-86 gm (1.2-1.4 gm/kg DBW 61.7 kg) Malnutrition Assessment: (pending NFPE and subjective information); Nutrition Focused Physical Assessment: Edema: No; ; Pressure Injury: none noted Comment: Abdomen s/nd/nt per RN, BM 11/10 Nutrition Diagnosis: Increased nutrient needs, specify: (kcal/protein) Etiology: liver cirrhosis Signs & Symptoms: estimated kcal/protein vs estimated needs Intervention / Plan: Monitor PO intake, wt trends, labs, GI health Goals: Patient to consume >75% of meals Time Frame: Throughout stay Lizbet Chan MS, RD, LD Desk phone [phone] | Available on Voalte * Caitlin Novak OT - 11/10/2020 9:35 AM CDT OCCUPATIONAL THERAPY PROGRESS NOTE Name: Zaria Paulson : 1960 Age : 60 y.o. Admission Date: 11/04/2020 LOS: 6 days Mobility Patient Turn/Position: Chair Progressive Mobility Level: Walk in room Distance Walked (feet): 30 ft (15+15) Level of Assistance: Assist X1 Assistive Device: Hand Held Time Tolerated: 0-10 minutes Activity Limited By: Weakness;Fatigue Subjective Pertinent Dx per Physician: PMH: cirrhosis, non-ischemic cardiomyopathy, chronic HFpEF, mechanical aortic valve on AC, paroxysmal Afib, & remote lymphoma- admit from OSH with rectus sheath hematoma & active extravasation Precautions: Falls Pain / Complaints: Patient has no c/o pain;Patient agrees to participate in ther apy Objective Psychosocial Status: Willing and Cooperative to Participate Home Living Type of Home: House Home Layout: One Level (2 stairs to enter) Bathroom Shower / Tub: Tub/Shower Unit Bathroom Toilet: Standard Prior Function Level Of Ina: Independent with ADLs and functional transfers;Needed ass istance with ADLs;Needed assistance with homemaking Lives With: Spouse Receives Help From: Spouse Other Function Comments: Lives with who provides most homemaking. Pt rep orts available to assist prn and often times provides at least supervisi on for showering. Denies h/o falls or use of DME. Mostly household distance ambu lation at baseline only. ADL's Where Assessed: In Bathroom Toileting Assist: Stand By Assist Toileting Deficits: Supervision/Safety Comment: Participates in toileting with standby assist. ADL Mobility Bed Mobility: Supine to Sit: Standby assist Transfer Type: Sit to/from stand Transfer: Assistance Level: To/from;Bed;Bedside chair;Toilet;Minimal assist Transfer: Assistive Device: Hand hold assist Transfer: Type of Assistance: For balance;For safety considerations;For strength deficit End of Activity Status: Up in chair Sitting Balance: Standby assist Standing Balance: Standby assist Gait Distance: 30 feet (15+15) Gait: Assistance Level: Minimal assist Gait: Assistive Device: Hand hold assist Gait Comments: Slow but steady gait with hand-hold assist. Activity Tolerance Endurance: 3/5 Tolerates 25-30 Minutes Exercise w/Multiple Rests Comment: Denies c/o dizziness/SOA throughout session. Cognition Overall Cognitive Status: WFL to Adequately Complete Self Care Tasks Safely Assessment Assessment: Decreased ADL Status;Decreased Endurance;Decreased Self-Care Trans Goal Formulation: Patient Comments: Pt making daily gains with therpay. Pt remains limited by activity lola erance likely due to multiple medical exacerbations and prolonged acute stay wit h lack of mobility. Anticipate rapid progress with therapy particularly as pt mo bilizes more frequently. Pt most appropriate to progress with one skilled discip line to address these concerns during acute stay. Recommend d/c home with contin ued assist from for homemaking and ADLs prn and home health for further endurance training. AM-PAC 6 Clicks Daily Activity Inpatient Putting on and taking off regular lower body clothes?: A Little Bathing (Including washing, rinsing, drying): A Little Toileting, which includes using toilet, bedpan, or urinal: A Little Putting on and taking off regular upper body clothing: None Taking care of personal grooming such as brushing teeth: None Eating meals?: None Daily Activity Raw Score: 21 Standardized (t-scale) score: 44.27 CMS 0-100% Score: 32.79 CMS G Code Modifier: CJ Plan OT Frequency: 5x/week OT Plan for Next Visit: Continued endurance training for standing grooming and f urther distance ambulation- bring walker and assess for need at d/c. ADL Goals Patient Will Perform Grooming: Standing at Sink;w/ Supervision/Safety Patient Will Perform LE Dressing: w/ Safety/Supervision Patient Will Perform Toileting: w/ Supervision/Safety Functional Transfer Goals Pt Will Perform All Functional Transfers: w/ Supervision OT Discharge Recommendations Recommendation: Home with intermittent supervision/assistance Recommendation for Therapy Post Discharge: Home health Patient Currently Requires Physical Assist With: All home functioning ADLs Patient Currently Requires Supervision For: Mobility Patient Currently Requires Equipment: Bath/shower chair Therapist: MICHAEL Martinez [id number] Date: 11/10/2020 * Laine Maynard RN - 11/10/2020 6:16 AM CDT Heart Failure Nursing Progress Note Admission Date: 11/04/2020 LOS: 6 days Admission Weight: 63.8 kg (140 lb 9.6 oz) Most recent weights (inpatient): Vitals: 11/07/20 0641 11/08/20 0618 11/10/20 0501 Weight: 66.2 kg (145 lb 15.1 oz) 65.5 kg (144 lb 6.4 oz) 64.2 kg (141 lb 9.6 oz) Weight change from previous day:-1.3 kg Fluid restriction ordered: 1.5 L Intake/Output Summary: (Last 24 hours) Intake/Output Summary (Last 24 hours) at 11/10/2020 0616 Last data filed at 11/10/2020 0503 Gross per 24 hour Intake 980 ml Output 1300 ml Net -320 ml Is patient incontinent No Anticipated discharge date: 11/11 Discharge goals: control bleeding Daily Assessment of Patient Stated Goals: Short Term Goal Identified by patient (Short Term=during hospitalization): n/a * Conchis Almonte OT - 11/09/2020 1:56 PM CDT OCCUPATIONAL THERAPY NOTE Name: Zaria Paulson : 1960 Age : 60 y.o. Admission Date: 11/04/2020 LOS: 5 days Patient declined to participate despite encouragement and education about the ro le and benefits of occupational therapy.Pt reports she walked laps in her room twice today and is wanting to stay in bed to take a nap. Occupational therapy w ill continue to follow and provide intervention as indicated. Therapist: SLAVA Henriquez/Nancy [id number] Date: 11/09/2020 * Otto Hayes MD - 11/09/2020 9:50 AM CDT General Progress Note Name: Zaria Paulson Today's Date: 11/09/2020 Admission Date: 11/04/2020 LOS: 5 days Assessment and Plan Principal Problem: Nontraumatic rectus hematoma Active Problems: Transfusion reaction Ms. Paulson is a 60yo F with a PMH of cirrhosis from unclear etiology, non-ischem ic cardiomyopathy, chronic heart failure with preserved ejection fraction, mecha nical aortic valve on warfarin, paroxysmal atrial fibrillation, and remote hx of lymphoma who presented via transfer from [facility] with concern for a left re ctus abdominal muscle hematoma and active extravasation. Acute blood loss anemia L flank/hip hematoma Left rectus abdominal hematoma Hematuria - Patient presented to [facility] with 2-day hx of LLQ pain, 10/10 bot h sharp and dull and now progressing toward her midline - She denies any melena or hematochezia - 11/04/20 CT a/p: complex enlargement and fluid collection within the left rect us abdominal muscle extending into the retroperitoneum and left pelvic musculatu re suggestive of active extravasation - Hgb 8.1 at outside hospital -Hgb 7.7 on admission - Patient had been taking her warfarin and bridging with Lovenox -Vitamin K given in ED -INR 1.3, was 2.5 on admission -Patient typed and crossed, consented for blood products -Patient denies hematemesis, melena, hematochezia. No concern for GI bleed at t his time. -11/05/2020: Patient had episode of hematuria with drop in hemoglobin to 6.5. Be came hypotensive following blood transfusion, repeat hemoglobin of 4.5, TAN stout, patient taken for embolization of inferior epigastric artery on 11/06/2020 -Cardiology consulted 11/07 regarding risk/benefit of anticoagulation in setting of mechanical heart valve and high risk bleeding. Recommendations: -Resume warfarin once bleeding subsides -INR goal of 1.6-2.0 -Do not bridge with heparin/lovenox -Hemoglobin stable, 7.4 today from 7.5 & 7.6 overnight - status post 1u pRBC on 11/07, 3 units PRBC on 11/06 -Currently hemodynamically stable -Urinary retention, trevino placed 11/08, draining bloody urine with no monica blood - 11/08 Vaginal exam with evidence of vaginal blood - 11/08 L flank and hip hematoma discovered on rounds -Plt 203, Fibrinogen 347, haptoglobin <30, LDH 241 -CT a/p 11/08/20 -stable slight improvement of left hemipelvis rectus hematoma, s mall to moderate simple abdominal and pelvic ascites, cirrhosis, small right ple ural effusion, mild body wall edema, no mention of retroperitoneal hemorrhage -Last Anticoagulation: heparin 11/05 PLAN: > Continue holding anticoagulation > Consult hematology, for concern of continued bleeding despite holding anticoagulation > Will consult urology today > Continue INR and CBC checks every 8 hours Non-ischemic cardiomyopathy Chronic heart failure with preserved ejection fraction Severe TR - Follows with Dr. 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 -BP 90s over 50s -Cardiology Heart Failure consulted, Recommendations: -Restart bumex 4mg po BID -Resume VEGETABLE WASHING MACHINE OPERATOR metolazone at discharge - 2000mg salt restriction, 1.5L fluid restriction -Strict I/O, daily standing weight PLAN: > Decrease Bumex to 2mg po bid >2000mg salt restriction, 1.5L fluid restriction >Strict I/O, daily standing weight Mechanical aortic valve - Implanted 2010 - VEGETABLE WASHING MACHINE OPERATOR warfarin 5mg daily, was bridging with Lovenox from prior admission -INR goal 1.6-2.0 per Cardiology recs above -Patient given vitamin K on admission -INR 1.3, 2.5 on admission. PLAN: > hold anticoagulation per above Paroxysmal atrial fibrillation - Went into AF with RVR during 10/20-10/26 admission, given metoprolol and amiod arone likely 2/2 active GIB - Was not discharged on anti-arrhythmic therapy Cirrhosis Hx of colonic AVMs - Follows with Dr. Marti - Unclear etiology though pt states it was related to lymphoma treatment, kamar gasca was admitted from 10/20-10/26 for decompensated cirrhosis in setting of ascite s and volume overload - Underwent Flex sig with sigmoid dieulafoy s/p epinephrine, bipolar cautery, he moclips x 2 with successful hemostasis; received 6 units of pRBCs and 1 unit of FFP - No asterixis on exam -Patient reports no history of esophageal varices -Meld 14 on 11/09/2020 PLAN: > Daily MELD labs > Continue PPI daily Remote hx of lymphoma - s/p chemotherapy in 2004 FEN: no IVF, electrolytes reviewed, Cardiac diet with Na and H2O restriction. Prophalyxis: hold in setting of high risk bleed Disposition: Admit to inpatient. Code status: Full (Discussed on 11/04/2020) Patient seen and discussed with Dr. Derrick Hayes MD Internal Medicine, PGY1 Available on Voalte Subjective Zaria Paulson patient reports feeling well this morning. She states she has l ittle appetite, but is able to tolerate food. She denies pain over sites of ecch ymoses at this time. Denies vomiting, abdominal pain, chest pain, shortness of breath, headache, dizziness, myalgias. Review of Systems: Review of Systems Constitutional: Negative for chills and fever. Respiratory: Negative for cough and shortness of breath. Cardiovascular: Negative for chest pain and palpitations. Gastrointestinal: Positive for nausea. Negative for vomiting. Genitourinary: Positive for hematuria. Musculoskeletal: Negative for myalgias. Skin: Negative for rash. Neurological: Negative for dizziness and headaches. Endo/Heme/Allergies: Bruises/bleeds easily. Objective Vital Signs: Last Filed Vital Signs: 24 Miguel r Range BP: 98/56 (11/09 842) Temp: 36.8 C (98.2 F) (11/09 842) Pulse: 95 (11/09 842) Respirations: 16 PER MINUTE (11/09 842) SpO2: 96 % (11/09 842) BP: (92-106)/(49-60) Temp: [36.7 C (98.1 F)-37.2 C (99 F)] Pulse: [75-107] Respirations: [16 PER MINUTE-18 PER MINUTE] SpO2: [96 %-100 %] Intensity Pain Scale (Self Report): 3 (11/09/20842) Vitals: 11/05/20 0649 11/07/20 0641 11/08/20 0618 Weight: 65 kg (143 lb 4.8 oz) 66.2 kg (145 lb 15.1 oz) 65.5 kg (144 lb 6.4 oz) Intake/Output Summary: (Last 24 hours) Intake/Output Summary (Last 24 hours) at 11/09/2020 0950 Last data filed at 11/09/2020 0537 Gross per 24 hour Intake 0 ml Output 1650 ml Net -1650 ml Stool Occurrence: 1 Physical Exam General Appearance: NAD, appears stated age Skin: warm, dry, no ulcers or xanthomas, Very large hematoma extending from Left CVA to Proximal left hip at approximately the greater trochanter, Second hemato ma roughly 15cm on Right hip, Minimally tender to palpation Eyes: conjunctivae and lids normal, pupils are equal and round, no scleral icter us Lips & Oral Mucosa: no pallor or cyanosis Respiratory Effort: breathing comfortably, no respiratory distress Auscultation/Percussion: lungs clear to auscultation, no rales or rhonchi, no wh eezing Cardiac Rhythm: regular rhythm and normal rate Cardiac Auscultation: Loud blowing systolic murmur in the tricuspid region radia ting to abdomen, mechanical S2 click consistent with aortic valve. Carotid Arteries:no bruit, no JVD Lower Extremity Edema: no lower extremity edema, right femoral artery access sit e with dressing in place clean, dry, and intact. Abdominal Exam: Protuberant, soft, tender in left lower quadrant (improved again from yesterday) without guarding or rebound, notable induration without erythem a, mild ecchymoses in left lower quadrant consistent with Lovenox injection site s. No masses, bowel sounds normal Limited Pelvic Exam: no palpable mass, no cervical motion tenderness, scant bloo d Language and Memory: Alert and attentive to conversation, able to respond approp riately when alert. Neurologic Exam: neurological assessment grossly intact Medications Medications Scheduled Meds:acetaminophen (TYLENOL EXTRA STRENGTH) tablet 500 mg, 500 mg, Ora l, Q6H* bumetanide (BUMEX) tablet 2 mg, 2 mg, Oral, BID(9-17) levothyroxine (SYNTHROID) tablet 75 mcg, 75 mcg, Oral, QDAY 30 min before breakf ast pantoprazole DR (PROTONIX) tablet 40 mg, 40 mg, Oral, QDAY(21) sertraline (ZOLOFT) tablet 100 mg, 100 mg, Oral, QDAY Continuous Infusions: PRN and Respiratory Meds:oxyCODONE Q6H PRN, prochlorperazine Q6H PRN, trimethobe nzamide Q6H PRN Associated attestation - Derrick Meza MD - 11/09/2020 4:48 PM CDT I personally performed the turpin portions of the E/M visit, discussed case with Me d III team and Dr Hayes and concur with his documentation of history, physica l exam, assessment, and treatment plan unless otherwise outlined with my notati ons. Feels well overall. Hemoglobin earlier today was seven-point 4 repeat this afternoon was 8.1. Revie wed abdominal CT images with radiology today. Fluid in the abdomen is deemed to be ascites not necessarily hematoma. We will continue to hold anticoagulation. Had concern if there was another reason for her bleeding discussed with hemato logy. Consulted urology for hematuria plan to arrange outpatient CT urogram and cystos copy. We will continue to monitor hemoglobin . Derrick Meza MD Department of Internal Medicine, Hospitalist [phone] * Kavita Velasquez, RN - 11/08/2020 2:[address] Meza and [facility] 3 team of large bruising on pt's left hip/lower back and some bruising on pt's right hip/lower back. Team aware and have placed order s for CT scans. Will continue to monitor. * Wendy Samuels, PT - 11/08/2020 1:40 PM CDT PHYSICAL THERAPY NOTE Name: Zaria Paulson : 1960 Age : 60 y.o. Admission Date: 11/04/2020 LOS: 4 days Based on discussion with OT, patient's current level of function suggests that p atient will progress with one discipline. PT will sign off at this time. Please re-consult if change in functional status occurs. Therapist: Wendy Samuels, [place], DPT [id number] Date: 11/08/2020 * Caitlin Novak OT - 11/08/2020 9:20 AM CDT OCCUPATIONAL THERAPY ASSESSMENT NOTE Name: Zaria Paulson : 1960 Age : 60 y.o. Admission Date: 11/04/2020 LOS: 4 days Mobility Patient Turn/Position: Chair Progressive Mobility Level: Walk in room Distance Walked (feet): 20 ft (+20) Level of Assistance: Assist X1 Assistive Device: Hand Held Time Tolerated: 11-30 minutes Activity Limited By: Weakness;Fatigue Subjective Pertinent Dx per Physician: PMH: cirrhosis, non-ischemic cardiomyopathy, chronic HFpEF, mechanical aortic valve on AC, paroxysmal Afib, & remote lymphoma- admit from OSH with rectus sheath hematoma & active extravasation Precautions: Falls Pain / Complaints: Patient has no c/o pain;Patient agrees to participate in ther apy Objective Psychosocial Status: Willing and Cooperative to Participate Home Living Type of Home: House Home Layout: One Level (2 stairs to enter) Bathroom Shower / Tub: Tub/Shower Unit Bathroom Toilet: Standard Prior Function Level Of Ina: Independent with ADLs and functional transfers;Needed ass istance with ADLs;Needed assistance with homemaking Lives With: Spouse Receives Help From: Spouse Other Function Comments: Lives with who provides most homemaking. Pt rep orts available to assist prn and often times provides at least supervisi on for showering. Denies h/o falls or use of DME. Mostly household distance ambu lation at baseline only. Vision ADL's Where Assessed: Edge of Bed;In Bathroom;Standing at Sink Grooming Assist: Stand By Assist Grooming Deficits: Supervision/Safety LE Dressing Assist: Stand By Assist LE Dressing Deficits: Don/Doff R Sock;Don/Doff L Sock Toileting Assist: Minimal Assist (contact guard assist) Toileting Deficits: Steadying;Supervision/Safety Comment: Dons BLE socks seated EOB with [id number] technique and standby dionne t. Participates in toileting with contact guard assist while standing for balwinder c are following bowel movement. Stands at sink to wash hands with standby assist. ADL Mobility Bed Mobility: Supine to Sit: Standby assist Transfer Type: Sit to/from stand Transfer: Assistance Level: To/from;Bed;Bedside chair;Toilet;Minimal assist Transfer: Assistive Device: Hand hold assist Transfer: Type of Assistance: For balance;For safety considerations;For strength deficit End of Activity Status: Up in chair Sitting Balance: Standby assist Standing Balance: Standby assist Gait Distance: 40 feet (20+20) Gait: Assistance Level: Minimal assist Gait: Assistive Device: Hand hold assist Gait Comments: Slow but steady gait with hand-hold assist. Activity Tolerance Endurance: 3/5 Tolerates 25-30 Minutes Exercise w/Multiple Rests Comment: Denies c/o dizziness/SOA throughout session. Cognition Overall Cognitive Status: WFL to Adequately Complete Self Care Tasks Safely UE AROM Overall BUE AROM WNL: Yes Coordination: Adequate to Complete ADLs Grasp: Bilateral Grasp Functional for Activity UE Strength / Tone Overall Strength / Tone: WFL Able to Perform ADL Tasks Education Persons Educated: Patient Teaching Methods: Verbal Instruction Patient Response: Verbalized and Demo Understanding Topics: Role of OT, Goals for Therapy Goal Formulation: With Patient Assessment Assessment: Decreased ADL Status;Decreased Endurance;Decreased Self-Care Trans Goal Formulation: Patient Comments: Pt limited by activity tolerance likely due to multiple medical exacer bations and prolonged acute stay with lack of mobility. Anticipate rapid progres s with therapy particularly as pt mobilizes more frequently. Pt most appropriate to progress with one skilled discipline to address these concerns during acute stay. Recommend d/c home with continued assist from for homemaking and A DLs prn and home health for further endurance training. AM-PAC 6 Clicks Daily Activity Inpatient Putting on and taking off regular lower body clothes?: A Little Bathing (Including washing, rinsing, drying): A Little Toileting, which includes using toilet, bedpan, or urinal: A Little Putting on and taking off regular upper body clothing: None Taking care of personal grooming such as brushing teeth: None Eating meals?: None Daily Activity Raw Score: 21 Standardized (t-scale) score: 44.27 CMS 0-100% Score: 32.79 CMS G Code Modifier: CJ Plan OT Frequency: 5x/week OT Plan for Next Visit: Continued endurance training for standing grooming and f urther distance ambulation- bring walker and assess for need at d/c. ADL Goals Patient Will Perform Grooming: Standing at Sink;w/ Supervision/Safety Patient Will Perform LE Dressing: w/ Safety/Supervision Patient Will Perform Toileting: w/ Supervision/Safety Functional Transfer Goals Pt Will Perform All Functional Transfers: w/ Supervision OT Discharge Recommendations Recommendation: Home with intermittent supervision/assistance Recommendation for Therapy Post Discharge: Home health Patient Currently Requires Physical Assist With: All home functioning ADLs Patient Currently Requires Equipment: Bath/shower chair Therapist: SLAVA Martinez/Nancy [id number] Date: 11/08/2020 * Fiordaliza Harding APRN-[employer] - 11/08/2020 9:15 AM CDT Heart Failure Progress Note NAME:Zaria Paulson :1960 AGE: 60 y.o. ADMISSION DATE: 11/04/2020 DAYS ADMITTED: LOS: 4 days Principal Problem: Nontraumatic rectus hematoma Active Problems: Transfusion reaction Recommendations: - continue diuresis-would resume VEGETABLE WASHING MACHINE OPERATOR at discharge - resume VEGETABLE WASHING MACHINE OPERATOR metolazone at discharge - resume warfarin with INR goal of 1.6-2.0 - do not bridge with heparin/lovenox - BMP daily. Magnesium level daily. Keep Potassium greater than 4.0 and Magnesi um greater than 2.0. - 2000 mg sodium dietary restriction. - Fluid Restriction 1.5L - Strict I/O. - Standing scale daily weight. - Poultry Packer consultation to discuss sodium restricted diet recommended. - Pharmacy/Medication counseling recommended. - Case Management/Social Work recommended. - Physical Therapy consult recommended. - Heart Failure to sign off Follow Up: Berna Madison APRN in the HF clinic on 11/15/2020 Patient seen and discussed with Dr. Tate Harding APRN Heart Failure Consult Assessment: Mechanical aortic valve in situ - initial surgery in 1975 at age 16 - second sternotomy with bioprosthetic valve 1997 - third sternotomy with mechanical valve 2010 - on warfarin for anticoagulation-currently on hold > resume warfarin with INR goal of 1.6-2.0 > if further bleeding, will need to stop anticoagulation and resume asa only RV failure Acute on chronic diastolic HFpEF, EF: 60%. Major Complications or Comorbidities ([place]): acute/ acute on chronic systolic and /or diastolic heart failure NYHA functional class III (marked limitation of physical activity - comfortable at rest, but less than ordinary activity causes symptoms of HF e.g., getting niru ssed or standing from a sitting position), ACC Stage C (structural heart disease with prior or current symptoms of HF). She presents with signs of hypervolemia with bi ventricular failure with signs of low flow state. 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 Changes BB NA ACEI/ARB/ARNI NA SGLT-2 Inhibitor Aldosterone Antagonist none Hydralazine/Nitrate none Ivabradine none HRMT No (EF>35%) Anticoagulation for AVR Yes-warfarin Cardiac Rehab Evaluation for LVEF <40% Left rectus hematoma Anemia - presented to OSH with abdominal pain - found to have complex enlargement and fluid collection with the left rectus ab dominal muscle extending into the retroperitoneum suggestive of active extravasa tion on CT - became hemodynamically unstable with BP 70/50s, HR 130s, Hgb 6.4 - went to IR mesenteric angiogram with successful coiling of the inferior epigas tric arteries - 11/07: Hgb 6.7->transfuse again today 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 Liver cirrhosis - secondary to chemotherapy - follows with hepatology at Subjective: Zaria Paulson is a 60 y.o. female who we are asked to see for prachi luation of heart failure. She has a past medical history of heart failure with preserved ejection fraction, nonischemic cardiomyopathy, status post aortic valv e replacement with 3 separate occasions, paroxysmal atrial fibrillation, hyperte nsion, history of endocarditis, anemia, chronic kidney disease, hypothyroidism, depression, non-Hodgkin's lymphoma, and cirrhosis thought to be secondary to teja motherapy. She was transferred from OSH after presenting there with abdominal p ain. She underwent a CT of the abdomen which revealed a left rectus abdominal m uscle hematoma. Heart failure was consulted regarding her anticoagulation for h er AVR and her abdominal hematoma. She reports that she has been having some issues with urinary retention, requiri ng straight caths. She states this is "putting a lot of pressure in my belly." She received one unit of PRBCs yesterday. Objective: Vital Signs: Last Filed Vital Signs: 24 Hour Range BP: 93/59 (11/09 803) Temp: 36.4 C (97.5 F) (11/09 803) Pulse: 107 (11/09 803) Respirations: 18 PER MINUTE (11/09 803) SpO2: 97 % (11/09 803) BP: (86-104)/(46-60) Temp: [36.4 C (97.5 F)-37.2 C (99 F)] Pulse: [75-113] Respirations: [16 PER MINUTE-18 PER MINUTE] SpO2: [97 %-100 %] Intensity Pain Scale (Self Report): 4 (11/07/202141) Wt Readings from Last 10 Encounters: 11/08/20 65.5 kg (144 lb 6.4 oz) 10/26/20 60.4 kg (133 lb 3.2 oz) 10/21/20 61.7 kg (136 lb 0.4 oz) 10/12/20 61.7 kg (136 lb) 09/07/20 61.2 kg (135 lb) 08/24/20 60.6 kg (133 lb 9.6 oz) 08/22/20 59.9 kg (132 lb) 08/03/20 66 kg (145 lb 9.6 oz) 08/01/20 68.2 kg (150 lb 6.4 oz) 07/18/20 66.5 kg (146 lb 9.6 oz) Physical Exam: General Appearance: appears stated age, no distress Eyes: conjunctivae and lids normal, pupils are equal and round Teeth/Gums/Palate: dentition unremarkable, no lesions Lips & Oral Mucosa: no pallor or cyanosis Neck Veins: JVP ~10cm, HJR positive Respiratory Effort: breathing comfortably, no respiratory distress Auscultation/Percussion: lungs clear but diminished to auscultation, no rales or rhonchi, no wheezing Cardiac Rhythm: regular rhythm and normal rate Cardiac Auscultation: S1, S2 present but clear splitting not heard, no rub, no S 3 gallop, no S4 gallop Murmurs: 2/6 systolic murmur Radial Arteries: normal symmetric radial pulses Pedal Pulses: normal symmetric pedal pulses Lower Extremity Edema: no lower extremity edema Peripheral Circulation: distal upper and [...] diff Lab Results Component Value Date/Time WBC 8.6 11/08/2020 02:32 AM RBC 2.37 (L) 11/08/2020 02:32 AM HGB 7.3 (L) 11/08/2020 02:32 AM HCT 21.8 (L) 11/08/2020 02:32 AM MCV 92.0 11/08/2020 02:32 AM MCH 30.9 11/08/2020 02:32 AM MCHC 33.6 11/08/2020 02:32 AM RDW 17.4 (H) 11/08/2020 02:32 AM PLTCT 180 11/08/2020 02:32 AM MPV 6.8 (L) 11/08/2020 02:32 AM Lab Results Component Value Date/Time NEUT 82 (H) 11/08/2020 02:32 AM ANC 7.11 (H) 11/08/2020 02:32 AM LYMA 7 (L) 11/08/2020 02:32 AM ALC 0.62 (L) 11/08/2020 02:32 AM TINY 8 11/08/2020 02:32 AM AMC 0.67 11/08/2020 02:32 AM EOSA 2 11/08/2020 02:32 AM AEC 0.18 11/08/2020 02:32 AM BASA 1 11/08/2020 02:32 AM ABC 0.04 11/08/2020 02:32 AM Chemistry Lab Results Component Value Date/Time NA 131 (L) 11/08/2020 02:32 AM K 3.9 11/08/2020 02:32 AM CL 99 11/08/2020 02:32 AM CO2 24 11/08/2020 02:32 AM GAP 8 11/08/2020 02:32 AM BUN 24 11/08/2020 02:32 AM CR 1.49 (H) 11/08/2020 02:32 AM GLU 93 11/08/2020 02:32 AM GLU 143 (H) 07/28/2020 09:45 AM Lab Results Component Value Date/Time CA 7.8 (L) 11/08/2020 02:32 AM PO4 2.4 11/08/2020 02:32 AM ALBUMIN 2.6 (L) 11/08/2020 02:32 AM TOTPROT 4.9 (L) 11/08/2020 02:32 AM ALKPHOS 65 11/08/2020 02:32 AM AST 27 11/08/2020 02:32 AM ALT 14 11/08/2020 02:32 AM TOTBILI 1.1 11/08/2020 02:32 AM GFR 36 (L) 11/08/2020 02:32 AM GFRAA 43 (L) 11/08/2020 02:32 AM Renal Function Lab Results Component Value Date/Time NA 131 (L) 11/08/2020 02:32 AM K 3.9 11/08/2020 02:32 AM CL 99 11/08/2020 02:32 AM CO2 24 11/08/2020 02:32 AM GAP 8 11/08/2020 02:32 AM BUN 24 11/08/2020 02:32 AM BUN 22 11/07/2020 05:24 AM BUN 19 11/06/2020 08:26 AM Lab Results Component Value Date/Time CR 1.49 (H) 11/08/2020 02:32 AM CR 1.35 (H) 11/07/2020 05:24 AM CR 1.14 (H) 11/06/2020 08:26 AM GLU 93 11/08/2020 02:32 AM GLU 143 (H) 07/28/2020 09:45 AM CA 7.8 (L) 11/08/2020 02:32 AM PO4 2.4 11/08/2020 02:32 AM ALBUMIN 2.6 (L) 11/08/2020 02:32 AM Lipid Profile INR No results found for: CHOL, TRIG, HDL, LDL, VLDL, NONHDLCHOL, CHOLHDLC Lab Results Component Value Date INR 1.4 (H) 11/08/2020 INR 2.4 11/02/2020 Chest X-Ray 11/04: 1. Mild cardiomegaly with pulmonary venous congestion and indistinct pulmonary vasculature suggesting pulmonary edema. 2. Small pleural effusions, greater on the right, with bibasilar atelectasis. Tele/ECG: SR - ST Echocardiogram Details: Echo Results (Last 3 results in the past 3 years) Echo EF LVIDD LA Size IVS LVPW Rest PAP (10/21/20) 60 (10/21/20) 4.46 (10/21/20) 5.96 (10/21/20) 1.21 (10/21/20) 1.16 (10/21/20) 79 (05/22/20) 60 (05/22/20) 4.31 (05/22/20) 6.56 (05/22/20) 1.21 (05/22/20) 1.30 (05/22/20) 64 Echo 10/21: 1. Normal left ventricular size. Mild concentric [...] mmHg. 9. Markedly elevated central venous pressure. Associated attestation - Shanell Ybarra DO - 11/08/2020 6:22 PM CDT Cardiology Staff Physician Attestation Zaria Paulson is a 60 y.o. female who reports feeling better. She had two epi sodes of urinary retention. Peeing well even with lower dose of diuretics BP 106/60 (BP Source: Arm, Right Upper) | Pulse 104 | Temp 36.7 C (98.1 F) | Ht 1.575 m (5' 2") | Wt 65.5 kg (144 lb 6.4 oz) | LMP (LMP Unknown) | Sp O2 100% | BMI 26.41 kg/m On examination the cardiac rhythm is mechanical sound. JVP is 15 with prominent V wave, and extremities +1 edema. Recent labs, radiology and other diagnostics studies were reviewed. My impression is biventricular failure, acute on chronic diastolic heart failure , severe tricuspid regurgitation, pulmonary hypertension, GI bleed, inferior epi gastric bleeding, frailty and malnourishment, chronic anticoagulation Plan is lower INR goal, resume warfarin, continue with diuresis, if recurrence o f bleeding would recommend stopping anticoagulation altogether. Patient should be scheduled to see Dr. Starr next 2 weeks. Sign off at this time please call u s with any further questions I have personally interviewed and examined the patient, have reviewed the medica l record & all pertinent medical documentation including the history, physical, & impression, and jointly formulated the treatment plan as outlined by the ANALYST SALES The Complexity of medical decision making is [...] with my edits as outlined below. Staff coal handling supervisor: Shanell Ybarra DO * Otto Hayes MD - 11/08/2020 6:52 AM CDT General Progress Note Name: Zaria Paulson Today's Date: 11/08/2020 Admission Date: 11/04/2020 LOS: 4 days Assessment and Plan Principal Problem: Nontraumatic rectus hematoma Active Problems: Transfusion reaction Ms. Paulson is a 60yo F with a PMH of cirrhosis from unclear etiology, non-ischem ic cardiomyopathy, chronic heart failure with preserved ejection fraction, mecha nical aortic valve on warfarin, paroxysmal atrial fibrillation, and remote hx of lymphoma who presented via transfer from [facility] with concern for a left re ctus abdominal muscle hematoma and active extravasation. L flank/hip hematoma (new) Left rectus abdominal hematoma Hematuria - [facility] with 2-day hx of LLQ pain, 10/10 bot h sharp and dull and now progressing toward her midline - She denies any melena or hematochezia - 11/04/20 CT a/p: complex enlargement and fluid collection within the left rect us abdominal muscle extending into the retroperitoneum and left pelvic musculatu re suggestive of active extravasation - Hgb 8.1 at outside hospital -Hgb 7.7 on admission - Patient had been taking her warfarin and bridging with Lovenox -Vitamin K given in ED -INR down to 1.5 on 11/07/20, was 2.5 on admission -Patient typed and crossed, consented for blood products -Patient denies hematemesis, melena, hematochezia. No concern for GI bleed at t his time. -11/05/2020: Patient had episode of hematuria with drop in hemoglobin to 6.5. Be came hypotensive following blood transfusion, repeat hemoglobin of 4.5, IR shahrzad stout, patient taken for embolization of inferior epigastric artery on 11/06/2020 -Cardiology consulted 11/07 regarding risk/benefit of anticoagulation in setting of mechanical heart valve and high risk bleeding. Recommendations: -Resume warfarin once bleeding subsides -INR goal of 1.6-2.0 -Do not bridge with heparin/lovenox -Hemoglobin downtrending 7.3 today, from 7.7 on 11/07 - status post 1u pRBC on 11/07, 3 units PRBC on 11/06 -Hypotensive to 86/57 overnight, Currently hemodynamically stable -Urinary retention overnight, Bladder scan was 685, straight cath with dark jos turia - 11/08 Vaginal exam with evidence of vaginal blood - 11/08 L flank and hip hematoma discovered on rounds PLAN: > will hold anticoagulation pending stable hgb following transfusion > repeat CBC was 8.0 > will order CT A/P w/o contrast > Consider Consult urology on 11/09 if Hgb downtrending > Continue INR and CBC checks every 8 hours Non-ischemic cardiomyopathy Chronic heart failure with preserved ejection fraction Severe TR - Follows with Dr. 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 -BP 90s over 50s -Cardiology Heart Failure consulted, Recommendations: -Restart bumex 4mg po BID -Resume VEGETABLE WASHING MACHINE OPERATOR metolazone at discharge - 2000mg salt restriction, 1.5L fluid restriction -Strict I/O, daily standing weight -BP typically low, however was 86/57 overnight PLAN: > Decrease Bumex to 2mg po bid >2000mg salt restriction, 1.5L fluid restriction >Strict I/O, daily standing weight Mechanical aortic valve - Implanted 2010 - VEGETABLE WASHING MACHINE OPERATOR warfarin 5mg daily, was bridging with Lovenox from prior admission -INR goal 1.6-2.0 per Cardiology recs above -Patient given vitamin K on admission -INR 1.5, 2.5 on admission. PLAN: > hold anticoagulation per above Paroxysmal atrial fibrillation - Went into AF with RVR during 10/20-10/26 admission, given metoprolol and amiod arone likely 2/2 active GIB - Was not discharged on anti-arrhythmic therapy Cirrhosis Hx of colonic AVMs - Follows with Dr. 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 Prophalyxis: hold in setting of high risk bleed Disposition: Admit to inpatient. Code status: Full (Discussed on 11/04/2020) Patient seen and discussed with Dr. Derrick Hayes MD Internal Medicine, PGY1 Available on [facility] Zaria Davila patient reports feeling well this morning. On morning rounds, h nikolai, the patient was found to have a very large hematoma extending from the l eft flank to the proximal left thigh. She also had a smaller hematoma over the r ight hip. She denies pain at this time Denies vomiting, abdominal pain, chest p ain, shortness of breath, headache, dizziness, myalgias. Review of Systems: Review of Systems Constitutional: Negative for chills and fever. Respiratory: Negative for cough and shortness of breath. Cardiovascular: Negative for chest pain and palpitations. Gastrointestinal: Positive for nausea. Negative for vomiting. Genitourinary: Positive for hematuria. Musculoskeletal: Negative for myalgias. Skin: Negative for rash. Neurological: Negative for dizziness and headaches. Endo/Heme/Allergies: Bruises/bleeds easily. Objective Vital Signs: Last Filed Vital Signs: 24 Miguel r Range BP: 90/55 (11/08 508) Temp: 36.5 C (97.7 F) (11/08 508) Pulse: 101 (11/08 508) Respirations: 18 PER MINUTE (11/08 508) SpO2: 97 % (11/08 508) BP: (86-104)/(46-60) Temp: [36.4 C (97.5 F)-37.2 C (99 F)] Pulse: [75-113] Respirations: [16 PER MINUTE-18 PER MINUTE] SpO2: [97 %-100 %] Intensity Pain Scale (Self Report): 4 (11/07/20 2142) Vitals: 11/05/20 0649 11/07/20 0641 11/08/20 0618 Weight: 65 kg (143 lb 4.8 oz) 66.2 kg (145 lb 15.1 oz) 65.5 kg (144 lb 6.4 oz) Intake/Output Summary: (Last 24 hours) Intake/Output Summary (Last 24 hours) at 11/08/2020 0652 Last data filed at 11/08/2020 0614 Gross per 24 hour Intake 294.67 ml Output 1300 ml Net -1005.33 ml Stool Occurrence: 0 Physical Exam General Appearance: NAD, appears stated age Skin: warm, dry, no ulcers or xanthomas, Very large hematoma extending from Left CVA to Proximal left hip at approximately the greater trochanter, Second hemato ma roughly 15cm on Right hip, Minimally tender to palpation Eyes: conjunctivae and lids normal, pupils are equal and round, no scleral icter us Lips & Oral Mucosa: no pallor or cyanosis Respiratory Effort: breathing comfortably, no respiratory distress Auscultation/Percussion: lungs clear to auscultation, no rales or rhonchi, no wh eezing Cardiac Rhythm: regular rhythm and normal rate Cardiac Auscultation: Loud blowing systolic murmur in the tricuspid region radia ting to abdomen, mechanical S2 click consistent with aortic valve. Carotid Arteries:no bruit, no JVD Lower Extremity Edema: no lower extremity edema, right femoral artery access sit e with dressing in place clean, dry, and intact. Abdominal Exam: Protuberant, soft, tender in left lower quadrant (improved again from yesterday) without guarding or rebound, notable induration without erythem a, mild ecchymoses in left lower quadrant consistent with Lovenox injection site s. No masses, bowel sounds normal Limited Pelvic Exam: no palpable mass, no cervical motion tenderness, scant bloo d Language and Memory: patient mildly lethargic, but able to respond appropriately when alert Neurologic Exam: neurological assessment grossly intact Medications Medications Scheduled Meds:acetaminophen (TYLENOL EXTRA STRENGTH) tablet 500 mg, 500 mg, Ora l, Q6H* bumetanide (BUMEX) tablet 4 mg, 4 mg, Oral, BID(-17) levothyroxine (SYNTHROID) tablet 75 mcg, 75 mcg, Oral, QDAY 30 min before breakf ast pantoprazole DR (PROTONIX) tablet 40 mg, 40 mg, Oral, QDAY(21) sertraline (ZOLOFT) tablet 100 mg, 100 mg, Oral, QDAY Continuous Infusions: PRN and Respiratory Meds:oxyCODONE Q6H PRN, prochlorperazine Q6H PRN, trimethobe nzamide Q6H PRN Associated attestation - Derrick Meza MD - 11/08/2020 5:32 PM CDT I personally performed the turpin portions of the E/M visit, discussed case with Me d III team and Dr Hayes and concur with his documentation of history, physica l exam, assessment, and treatment plan unless otherwise outlined with my notati ons. Bruising in the left lower flank extending to the abdomen anteriorly and later i nformed of bruesing in the right lower back. Has been having some urinary reten tion with hematuria although there was concern she may have vaginal bleeding. P lacing Trevino catheter. Hemoglobin was 7.3 earlier this morning and around 8 at around 10. Currently 7. 6. CT of abdomen pelvis and lower extremity performed result pending. Will req uire angiography to determine bleeding site if she continues to have drop. Low risk for microangiopathy and DIC. Test would be abnormal given her recent a nticoagulation but will get a peripheral smear and fibrinogen. We will hold off anticoagulation until bleeding abates . Derrick Meza MD Department of Internal Medicine, Hospitalist [phone] * Otto Hayes MD - 11/07/2020 2:35 PM CDT General Progress Note Name: Zaria Paulson Today's Date: 11/07/2020 Admission Date: 11/04/2020 LOS: 3 days Assessment and Plan Principal Problem: Nontraumatic rectus hematoma Active Problems: Transfusion reaction Ms. Paulson is a 60yo F with a PMH of cirrhosis from unclear etiology, non-ischem ic cardiomyopathy, chronic heart failure with preserved ejection fraction, mecha nical aortic valve on warfarin, paroxysmal atrial fibrillation, and remote hx of lymphoma who presented via transfer from [facility] with concern for a left re ctus abdominal muscle hematoma and active extravasation. Left rectus abdominal hematoma Hematuria - Patient [facility] with 2-day hx of LLQ pain, 10/10 bot h sharp and dull and now progressing toward her midline - She denies any melena or hematochezia - 11/04/20 CT a/p: complex enlargement and fluid collection within the left rect us abdominal muscle extending into the retroperitoneum and left pelvic musculatu re suggestive of active extravasation - Hgb 8.1 at outside hospital -Hgb 7.7 on admission - Patient had been taking her warfarin and bridging with Lovenox -Vitamin K given in ED -INR down to 1.5 on 11/07/20, was 2.5 on admission -Patient typed and crossed, consented for blood products -Patient denies hematemesis, melena, hematochezia. No concern for GI bleed at t his time. -11/05/2020: Patient had episode of hematuria with drop in hemoglobin to 6.5. Be came hypotensive following blood transfusion, repeat hemoglobin of 4.5, IR shahrzad stout, patient taken for embolization of inferior epigastric artery on 11/06/2020 -11/06/2020, continued hematuria -Hemoglobin 6.7 this morning, down from 7.1 yesterday - status post 3 units PRBC on 11/06/20 -Currently hemodynamically stable -Cardiology consulted regarding risk/benefit of anticoagulation in setting of me chanical heart valve and high risk bleeding. Recommendations: -Resume warfarin once bleeding subsides -INR goal of 1.6-2.0 -Do not bridge with heparin/lovenox PLAN: > will hold anticoagulation pending stable hgb following transfusion > We will transfuse 1 unit PRBC for hgb 6.7 > Continue INR and CBC checks every 8 hours > We will reengage IR for any sign of increased bleeding. Non-ischemic cardiomyopathy Chronic heart failure with preserved ejection fraction Severe TR - Follows with Dr. 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 PLAN: > hold anticoagulation per above Paroxysmal atrial fibrillation - Went into AF with RVR during 10/20-10/26 admission, given metoprolol and amiod arone likely 2/2 active GIB - Was not discharged on anti-arrhythmic therapy Cirrhosis Hx of colonic AVMs - Follows with Dr. Marti - Unclear etiology though pt states it was related to lymphoma treatment, patigabriela t was admitted from 10/20-10/26 for decompensated cirrhosis in setting of ascite s and volume overload - Underwent Flex sig with sigmoid dieulafoy s/p epinephrine, bipolar cautery, he moclips x 2 with successful hemostasis; received 6 units of pRBCs and 1 unit of FFP - No asterixis on exam -Meld 15 on 11/05/2020, driven by iatrogenically elevated INR -Patient reports no history of esophageal varices PLAN: > Daily MELD labs > Continue PPI daily Remote hx of lymphoma - s/p chemotherapy in 2004 FEN: no IVF, electrolytes reviewed, Cardiac diet with Na and H2O restriction. Prophalyxis: hold in setting of high risk bleed Disposition: Admit to inpatient. Code status: Full (Discussed on 11/04/2020) Patient seen and discussed with Dr. Derrick Hayes MD Internal Medicine, PGY1 Available on [employer] Subjective Zaria Paulson patient reports feeling much better this morning. States her p ain is well controlled, she was able to tolerate solid diet but states she has l imited appetite. Patient reports 2 episodes of clear nonbloody urine overnight, however has noticed some red-tinged urine this morning. Patient endorses some nausea but states [employer] is working better than [employer]. Denies vomiting, abdo ovi pain, chest pain, shortness of breath, headache, dizziness, myalgias. Review of Systems: Review of Systems Constitutional: Negative for chills and fever. Respiratory: Negative for cough and shortness of breath. Cardiovascular: Negative for chest pain and palpitations. Gastrointestinal: Positive for nausea. Negative for vomiting. Genitourinary: Positive for hematuria. Musculoskeletal: Negative for myalgias. Skin: Negative for rash. Neurological: Negative for dizziness and headaches. Endo/Heme/Allergies: Bruises/bleeds easily. Objective Vital Signs: Last Filed Vital Signs: 24 Miguel r Range BP: 98/58 (11/07 1324) Temp: 36.7 C (98.1 F) (11/07 1324) Pulse: 112 (11/07 1324) Respirations: 16 PER MINUTE (11/07 1324) SpO2: 100 % (11/07 1324) BP: (94-112)/(48-78) Temp: [36.4 C (97.5 F)-37.2 C (98.9 F)] Pulse: [75-129] Respirations: [16 PER MINUTE-18 PER MINUTE] SpO2: [96 %-100 %] Vitals: 11/04/20 2020 11/05/20 0649 11/07/20 0641 Weight: 63.8 kg (140 lb 9.6 oz) 65 kg (143 lb 4.8 oz) 66.2 kg (145 lb 15.1 oz) Intake/Output Summary: (Last 24 hours) Intake/Output Summary (Last 24 hours) at 11/07/2020 1436 Last data filed at 11/07/2020 1325 Gross per 24 hour Intake 1120 ml Output 450 ml Net 670 ml Stool Occurrence: 0 Physical Exam General Appearance: NAD, appears stated age Skin: warm, dry, no ulcers or xanthomas Eyes: conjunctivae and lids normal, pupils are equal and round, no scleral icter us Lips & Oral Mucosa: no pallor or cyanosis Respiratory Effort: breathing comfortably, no respiratory distress Auscultation/Percussion: lungs clear to auscultation, no rales or rhonchi, no wh eezing Cardiac Rhythm: regular rhythm and normal rate Cardiac Auscultation: Loud blowing systolic murmur in the tricuspid region radia ting to abdomen, mechanical S2 click consistent with aortic valve. Murmurs: no murmur Carotid Arteries:no bruit, no JVD Lower Extremity Edema: no lower extremity edema, right femoral artery access sit e with dressing in place clean, dry, and intact. Abdominal Exam: Protuberant, soft, tender in left lower quadrant (improved again from yesterday) without guarding or rebound, notable induration without erythem a, mild ecchymoses in left lower quadrant consistent with Lovenox injection site s. No masses, bowel sounds normal Language and Memory: patient mildly lethargic, but able to respond appropriately when alert Neurologic Exam: neurological assessment grossly intact Medications Medications Scheduled Meds:acetaminophen (TYLENOL EXTRA STRENGTH) tablet 500 mg, 500 mg, Ora l, Q6H* bumetanide (BUMEX) tablet 4 mg, 4 mg, Oral, BID(-) levothyroxine (SYNTHROID) tablet 75 mcg, 75 mcg, Oral, QDAY 30 min before breakf ast pantoprazole DR (PROTONIX) tablet 40 mg, 40 mg, Oral, QDAY() sertraline (ZOLOFT) tablet 100 mg, 100 mg, Oral, QDAY Continuous Infusions: PRN and Respiratory Meds:oxyCODONE Q6H PRN, prochlorperazine Q6H PRN, trimethobe nzamide Q6H PRN Associated attestation - Derrick Meza MD - 11/07/2020 4:58 PM CDT I personally performed the turpin portions of the E/M visit, discussed case with Me d III team and Dr Hayes and concur with his documentation of history, physica l exam, assessment, and treatment plan unless otherwise outlined with my notati ons. States that she feels better than yesterday. Hemoglobin dropped to 6.7. Plan to transfuse 1 unit of blood. Has some hematur ia but not with monica blood. Holding of anticoagulation. Cardiology consulted regarding Recommendation for anticoagulation. Note that recommendation is between INR 1.6 -2. Derrick Meza MD Department of Internal Medicine, Hospitalist [phone] * Latesha Beltrán APRN-NP - 11/07/2020 11:17 AM CDT Interventional Radiology Follow Up Note Admission Date: 11/04/2020 LOS: 3 days Principal Problem: Nontraumatic rectus hematoma Active Problems: Transfusion reaction Procedure completed: Zaria Paulson is a 60 y.o. female who is status post coi ling of inferior epigastric arteries in IR 11/06/20. Assessment: - 11/06- "Free contrast extravasation with successful coiling of the inferior epi gastric arteries" - No s/s bleeding overnight, Hgb stable at 6.7 - Right groin dressing CDI without s/s hematoma Plan: 1. Continue to monitor Hgb. Continue to monitor INR. 2. IR to sign-off, re-engage with concern for re-bleeding 3. Defer AC recommendations to cardiology We appreciate being able to participate in this patient's care. Please page with any questions or concerns. [facility] Pgr [phone] IR Team Pager [phone] (After-hours and Weekends) Subjective Patient is a 60 yr old female who is s/p inferior epigastric coiling. No concern for re-bleeding this morning Review of Systems Constitutional: negative Ears, nose, mouth, throat, and face: negative Respiratory: negative Cardiovascular: negative Gastrointestinal: negative Musculoskeletal:negative Neurological: negative Behavioral/Psych: negative Medications Scheduled Meds:acetaminophen (TYLENOL EXTRA STRENGTH) tablet 500 mg, 500 mg, Ora l, Q6H* levothyroxine (SYNTHROID) tablet 75 mcg, 75 mcg, Oral, QDAY 30 min before breakf ast pantoprazole DR (PROTONIX) tablet 40 mg, 40 mg, Oral, QDAY(21) sertraline (ZOLOFT) tablet 100 mg, 100 mg, Oral, QDAY Continuous Infusions: PRN and Respiratory Meds:oxyCODONE Q6H PRN, prochlorperazine Q6H PRN, trimethobe nzamide Q6H PRN Objective Vital Signs: Last Filed Vital Signs: 24 Miguel r Range BP: 102/55 (11/07 1111) Temp: 36.7 C (98.1 F) (11/07 1111) Pulse: 110 (11/07 1100) Respirations: 16 PER MINUTE (11/07 1111) SpO2: 97 % (11/07 1111) BP: (94-112)/(48-78) Temp: [36.6 C (97.8 F)-37.2 C (98.9 F)] Pulse: [77-129] Respirations: [16 PER MINUTE-18 PER MINUTE] SpO2: [96 %-100 %] Vitals: 11/04/20 2020 11/05/20 0649 11/07/20 0641 Weight: 63.8 kg (140 lb 9.6 oz) 65 kg (143 lb 4.8 oz) 66.2 kg (145 lb 15.1 oz) Intake/Output Summary: (Last 24 hours) Intake/Output Summary (Last 24 hours) at 11/07/2020 1125 Last data filed at 11/07/2020 0838 Gross per 24 hour Intake 1434.5 ml Output 250 ml Net 1184.5 ml Stool Occurrence: 0 Physical Exam General appearance: alert and no distress Neurologic: Grossly normal, at baseline Lungs: Nonlabored with normal effort Heart: regular rate and rhythm Abdomen: soft, non-tender. Bowel sounds normal. No masses, no organomegaly Extremities: extremities normal, atraumatic, no cyanosis or edema Lab/Radiology/Other Diagnostic Tests: Labs: 24-hour labs: Results for orders placed or performed during the hospital encounter of 11/04/20 (from the past 24 hour(s)) HEMOGLOBIN & HEMATOCRIT Collection Time: 11/06/20 3:20 PM Result Value Ref Range Hemoglobin 6.7 (L) 12.0 - 15.0 GM/DL Hematocrit 20.2 (L) 36 - 45 % CBC AND DIFF Collection Time: 11/06/20 9:30 PM Result Value Ref Range White Blood Cells 13.0 (H) 4.5 - 11.0 K/UL RBC 2.28 (L) 4.0 - 5.0 M/UL Hemoglobin 7.1 (L) 12.0 - 15.0 GM/DL Hematocrit 20.9 (L) 36 - 45 % MCV 91.7 80 - 100 FL MCH 31.3 26 - 34 PG MCHC 34.2 32.0 - 36.0 G/DL RDW 18.3 (H) 11 - 15 % Platelet Count 213 150 - 400 K/UL MPV 7.1 7 - 11 FL Neutrophils 84 (H) 41 - 77 % Lymphocytes 6 (L) 24 - 44 % Monocytes 9 4 - 12 % Eosinophils 1 0 - 5 % Basophils 0 0 - 2 % Absolute Neutrophil Count 10.86 (H) 1.8 - 7.0 K/UL Absolute Lymph Count 0.77 (L) 1.0 - 4.8 K/UL Absolute Monocyte Count 1.19 (H) 0 - 0.80 K/UL Absolute Eosinophil Count 0.12 0 - 0.45 K/UL Absolute Basophil Count 0.03 0 - 0.20 K/UL CBC AND DIFF Collection Time: 11/07/20 3:53 AM Result Value Ref Range White Blood Cells 13.8 (H) 4.5 - 11.0 K/UL RBC 2.32 (L) 4.0 - 5.0 M/UL Hemoglobin 7.1 (L) 12.0 - 15.0 GM/DL Hematocrit 21.3 (L) 36 - 45 % MCV 91.9 80 - 100 FL MCH 30.6 26 - 34 PG MCHC 33.3 32.0 - 36.0 G/DL RDW 18.3 (H) 11 - 15 % Platelet Count 216 150 - 400 K/UL MPV 6.6 (L) 7 - 11 FL Neutrophils 83 (H) 41 - 77 % Lymphocytes 6 (L) 24 - 44 % Monocytes 8 4 - 12 % Eosinophils 2 0 - 5 % Basophils 1 0 - 2 % Absolute Neutrophil Count 11.47 (H) 1.8 - 7.0 K/UL Absolute Lymph Count 0.86 (L) 1.0 - 4.8 K/UL Absolute Monocyte Count 1.14 (H) 0 - 0.80 K/UL Absolute Eosinophil Count 0.24 0 - 0.45 K/UL Absolute Basophil Count 0.08 0 - 0.20 K/UL PROTIME INR (PT) Collection Time: 11/07/20 5:24 AM Result Value Ref Range INR 1.5 (H) 0.8 - 1.2 COMPREHENSIVE METABOLIC PANEL Collection Time: 11/07/20 5:24 AM Result Value Ref Range Sodium 132 (L) 137 - 147 MMOL/L Potassium 4.1 3.5 - 5.1 MMOL/L Chloride 101 98 - 110 MMOL/L Glucose 97 70 - 100 MG/DL Blood Urea Nitrogen 22 7 - 25 MG/DL Creatinine 1.35 (H) 0.4 - 1.00 MG/DL Calcium 7.7 (L) 8.5 - 10.6 MG/DL Total Protein 4.6 (L) 6.0 - 8.0 G/DL Total Bilirubin 1.1 0.3 - 1.2 MG/DL Albumin 2.5 (L) 3.5 - 5.0 G/DL Alk Phosphatase 58 25 - 110 U/L AST (SGOT) 37 7 - 40 U/L CO2 23 21 - 30 MMOL/L ALT (SGPT) 19 7 - 56 U/L Anion Gap 8 3 - 12 eGFR Non 40 (L) >60 mL/min eGFR 49 (L) >60 mL/min PHOSPHORUS Collection Time: 11/07/20 5:24 AM Result Value Ref Range Phosphorus 2.7 2.0 - 4.5 MG/DL CBC AND DIFF Collection Time: 11/07/20 9:14 AM Result Value Ref Range White Blood Cells 12.9 (H) 4.5 - 11.0 K/UL RBC 2.18 (L) 4.0 - 5.0 M/UL Hemoglobin 6.7 (L) 12.0 - 15.0 GM/DL Hematocrit 20.1 (L) 36 - 45 % MCV 92.4 80 - 100 FL MCH 30.8 26 - 34 PG MCHC 33.3 32.0 - 36.0 G/DL RDW 17.9 (H) 11 - 15 % Platelet Count 194 150 - 400 K/UL MPV 6.9 (L) 7 - 11 FL Neutrophils 85 (H) 41 - 77 % Lymphocytes 5 (L) 24 - 44 % Monocytes 8 4 - 12 % Eosinophils 1 0 - 5 % Basophils 1 0 - 2 % Absolute Neutrophil Count 10.92 (H) 1.8 - 7.0 K/UL Absolute Lymph Count 0.65 (L) 1.0 - 4.8 K/UL Absolute Monocyte Count 1.05 (H) 0 - 0.80 K/UL Absolute Eosinophil Count 0.18 0 - 0.45 K/UL Absolute Basophil Count 0.07 0 - 0.20 K/UL Radiology: Reviewed. * Otto Hayes MD - 11/06/2020 4:06 PM CDT General Progress Note Name: Zaria Paulson Today's Date: 11/06/2020 Admission Date: 11/04/2020 LOS: 2 days Assessment and Plan Principal Problem: Nontraumatic rectus hematoma Active Problems: Transfusion reaction Ms. Paulson is a 60yo F with a PMH of cirrhosis from unclear etiology, non-ischem ic cardiomyopathy, chronic heart failure with preserved ejection fraction, mecha nical aortic valve on warfarin, paroxysmal atrial fibrillation, and remote hx of lymphoma who presented via transfer from [facility] with concern for a left re ctus abdominal muscle hematoma and active extravasation. Left rectus abdominal hematoma - Patient presented to [facility] with 2-day hx of LLQ pain, 10/10 bot h sharp and dull and now progressing toward her midline - She denies any melena or hematochezia - 11/04/20 CT a/p: complex enlargement and fluid collection within the left rect us abdominal muscle extending into the retroperitoneum and left pelvic musculatu re suggestive of active extravasation - Hgb 8.1 at outside hospital -Hgb this morning 7.4 down from 7.7 on admission - Patient had been taking her warfarin and bridging with Lovenox -Vitamin K given in ED -INR 2.2 this morning, repeat INR 2.0 this afternoon -INR target 2.0-3.0 due to mechanical aortic valve -IR consulted, recommendations: -No acute intervention at this time -Hematoma appears stable -Can pursue prophylactic embolization due to necessity of anticoagulation and p atient with mechanical valve -Patient typed and crossed, consented for blood products -Patient denies hematemesis, melena, hematochezia. No concern for GI bleed at t his time. -11/05/2020: Patient had episode of hematuria with drop in hemoglobin to 6.5. Be came hypotensive following blood transfusion, repeat hemoglobin of 4.5, IR markham d, patient taken for embolization of inferior epigastric artery on 11/06/2020 -11/06/2020, continued hematuria -Hemoglobin 6.7 status post 2 units PRBC, -Currently hemodynamically stable PLAN: > We will hold anticoagulation for now, will consult cardiology to discuss risk benefit of anticoagulation in setting of mechanical heart valve and high risk bleeding. > We will transfuse 1 unit PRBC > Continue INR and CBC checks every 6 hours > We will reengage IR for any sign of increased bleeding. Cirrhosis Hx of colonic AVMs - Follows with Dr. 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 -BP 90s over 50s PLAN: > Hold Bumex for now with active bleeding Mechanical aortic valve - Implanted 2010 - VEGETABLE WASHING MACHINE OPERATOR warfarin 5mg daily, was bridging with Lovenox from prior admission -INR goal 2.0-3.5 -Patient given vitamin K on admission -INR 1.9, 2.5 on admission. PLAN: > We will consult cardiology on 11/07/2020 to discuss risk benefit of anticoagulation in setting of mechanical aortic valve and high risk bleeding. > Hold anticoagulation for now Paroxysmal atrial fibrillation - Went into AF with RVR during 10/20-10/26 admission, given metoprolol and amiod arone likely 2/2 active GIB - Was not discharged on anti-arrhythmic therapy Remote hx of lymphoma - s/p chemotherapy in 2004 FEN: no IVF, electrolytes reviewed, Diet NPO pending stabilization. Prophalyxis: Heparin GTT Disposition: Admit to inpatient. Code status: Full (Discussed on 11/04/2020) Patient seen and discussed with Dr. Derrick Hayes MD Internal Medicine, PGY1 Available on [employer] Subjective Zaria Paulson had a CUT OUT PRESS OPERATOR called last night due to hypotension following a pres umed hemorrhage versus transfusion reaction. Patient reported difficulty urinat ing followed by monica hematuria late yesterday evening. Repeat hemoglobin showe d a drop to 6.4 from 7.3. Blood transfusion was initiated however the patient b ecame hypotensive shortly after initiation. Transfusion was stopped and patient was given 500 mL IV fluids with appropriate response. Blood transfusion was re started sometime later and became hypotensive again. Repeat hemoglobin was now 4.5, so interventional radiology was called and patient was taken for arterial e mbolization. Successful embolization of 2 branches of the inferior epigastric a rtery was able to maintain hemostasis. Patient was given 1 more unit of PRBC an d responded appropriately with hemoglobin increasing to 5.7. When seen this [facility] clarissa patient was mildly lethargic and had difficulty attending to the interview. She does report improved abdominal pain, but does endorse significant nausea in the night. She states that Tigan has been ineffective in controlling nausea and states that she vomited once last night. Patient has reported continued blood- tinged urine throughout the day today as well. Review of Systems: Review of Systems Constitutional: Negative for chills and fever. Respiratory: Negative for cough and shortness of breath. Cardiovascular: Negative for chest pain and palpitations. Gastrointestinal: Positive for nausea and vomiting. Genitourinary: Positive for hematuria. Musculoskeletal: Negative for myalgias. Skin: Negative for rash. Neurological: Negative for dizziness and headaches. Endo/Heme/Allergies: Bruises/bleeds easily. Objective Vital Signs: Last Filed Vital Signs: 24 Miguel r Range BP: 110/68 (11/06 1558) Temp: 36.6 C (97.9 F) (11/06 1558) Pulse: 110 (11/06 1558) Respirations: 18 PER MINUTE (11/06 1558) SpO2: 100 % (11/06 1558) SpO2 Pulse: 115 (11/06 0545) BP: (69-112)/(33-78) Temp: [36.3 C (97.4 F)-37.2 C (98.9 F)] Pulse: [63-138] Respirations: [12 PER MINUTE-28 PER MINUTE] SpO2: [94 %-100 %] Intensity Pain Scale (Self Report): 10 (11/05/20 2140) Vitals: 11/04/20 2020 11/05/20 0649 Weight: 63.8 kg (140 lb 9.6 oz) 65 kg (143 lb 4.8 oz) Intake/Output Summary: (Last 24 hours) Intake/Output Summary (Last 24 hours) at 11/06/2020 1606 Last data filed at 11/06/2020 1430 Gross per 24 hour Intake 814.5 ml Output 850 ml Net -35.5 ml Stool Occurrence: 0 Physical Exam General Appearance: NAD, appears stated age Skin: warm, dry, no ulcers or xanthomas Eyes: conjunctivae and lids normal, pupils are equal and round, no scleral icter us Lips & Oral Mucosa: no pallor or cyanosis Respiratory Effort: breathing comfortably, no respiratory distress Auscultation/Percussion: lungs clear to auscultation, no rales or rhonchi, no wh eezing Cardiac Rhythm: regular rhythm and normal rate Cardiac Auscultation: Loud blowing systolic murmur in the tricuspid region radia ting to abdomen, mechanical S2 click consistent with aortic valve. Murmurs: no murmur Carotid Arteries:no bruit, no JVD Lower Extremity Edema: no lower extremity edema Abdominal Exam: Protuberant soft, tender in left lower quadrant (improved from y esterday) without guarding or rebound, notable induration without erythema, mild ecchymoses in left lower quadrant consistent with Lovenox injection sites. No masses, bowel sounds normal Language and Memory: patient mildly lethargic, but able to respond appropriately when alert Neurologic Exam: neurological assessment grossly intact Medications Medications Scheduled Meds:acetaminophen (TYLENOL EXTRA STRENGTH) tablet 500 mg, 500 mg, Ora l, Q6H* levothyroxine (SYNTHROID) tablet 75 mcg, 75 mcg, Oral, QDAY 30 min before breakf ast pantoprazole DR (PROTONIX) tablet 40 mg, 40 mg, Oral, QDAY(21) sertraline (ZOLOFT) tablet 100 mg, 100 mg, Oral, QDAY Continuous Infusions: PRN and Respiratory Meds:oxyCODONE Q6H PRN, prochlorperazine Q6H PRN, trimethobe nzamide Q6H PRN Associated attestation - Derrick Meza MD - 11/06/2020 5:10 PM CDT I personally performed the turpin portions of the E/M visit, discussed case with Me d III team and Dr Hayes and concur with his documentation of history, physica l exam, assessment, and treatment plan unless otherwise outlined with my notati ons. Has had drop in her hemoglobin overnight following initiation of heparin for aor tic valve replacement requiring anticoagulation. Interventional radiology perfo rmed angiogram that demonstrated contrast extravasation of the inferior epigastr ic arteries that was coiled. Transfused with 3 units of packed RBC, third 1 run clarissa. Latest hemoglobin is 6.7. Continue to monitor hemoglobin. We will consult regarding anticoagulation moving forward in light of hematuria, recent GI bleed and hematoma resulting from inferior epigastric bleeding. Derrick Meza MD Department of Internal Medicine, Hospitalist [phone] * Summer Roth, RN - 11/06/2020 8:09 AM CDT This RN notified team of pt having monica red blood in urine. Dr. Eaton notif ied. Pt abdomen distended and tender to touch. Hgb 6.4 @ 0000, team notified. Or danielle for 1 unit RBC to be administered. After initiating blood per protocol, pt B P decreased to 71/41. Dr. Eaton notified and infusion stopped. Rapid called. Pt received another unit of RBC per rapid team and was sent to IR to find geoffrey correa source of bleed. * Bertha Joy RN - 11/06/2020 4:41 AM CDT Sedation physician present in room. Recent vitals and patient condition reviewe d between sedating physician and nurse. Reassessment completed. Determination made to proceed with planned sedation. * Nithya Eaton MD - 11/05/2020 11:54 PM CDT Team notified that patient having monica red blood in urine and 12/31 abdominal p ain. Assessed patient at bedside. At this time, patient denies pain. States that pain improved with urination. H&H obtained. Spoke with RN who verified adequate IV access. Vitals reviewed, P 95, BP 105/61. Physical exam with soft abdomen, non-distended, non-tender to palpation. Pure-wick in place and sitting in pile of monica red urine. Patient no longer urinating blood. Patient denies bright red blood per rectum or melana. Paged IR stat. Discussed case with IR resident, Meliza Almaguer - recommended close monitoring, no need for further imaging. Will see next H&H result and determine need for IR intervention. Per resident, hematoma likely the cause of hematuria. Heparin paused. Patient remains NPO. Already consented for blood by Dr. Blackmon. Discussed plan with patient and at bedside. All questions answers. Update: Hemoglobin resulted 6.4. Patient ordered 1 unit pRBCs. Later notified by RN that patient became hypotensive with SBP in 70s and tachycardia in 130s after ~15 minutes of transfusion. Transfusion paused. Due to hypotension, RN called CUT OUT PRESS OPERATOR. Assessed patient at bedside. Ordered 500 cc bolus. NICOM not available at t his time. Appeared fluid responsive with improvement in BP. Initially suspected that hypotension due to hypovolemia with tachycardia; however, after attempting to restart blood transfusion, patient became hypotensive again. Blood transfusio n stopped. Resumed IVFs. Discussed with on-call IR resident and pulm crit fellow . Planning on IR-intervention now. Repeat hgb 4.5. Discussed with blood bank. 2 units pRBCs ordered. 4 units prepped. * Jeanette Benjamin RN - 11/05/2020 9:18 PM CDT Answered patients call light. Pt crying saying she feels like she needs to pee b ut can't. Bladder scan shows 305. ME3 paged. * Otto Hayes MD - 11/05/2020 3:39 PM CDT General Progress Note Name: Zaria Paulson Today's Date: 11/05/2020 Admission Date: 11/04/2020 LOS: 1 day Assessment and Plan Principal Problem: Nontraumatic rectus hematoma Ms. Paulson is a 60yo F with a PMH of cirrhosis from unclear etiology, non-ischem ic cardiomyopathy, chronic heart failure with preserved ejection fraction, mecha nical aortic valve on warfarin, paroxysmal atrial fibrillation, and remote hx of lymphoma who presented via transfer from [facility] with concern for a left re ctus abdominal muscle hematoma and active extravasation. Left rectus abdominal hematoma - Patient presented to [facility] with 2-day hx of LLQ pain, 10/10 bot h sharp and dull and now progressing toward her midline - She denies any melena or hematochezia - 11/04/20 CT a/p: complex enlargement and fluid collection within the left rect us abdominal muscle extending into the retroperitoneum and left pelvic musculatu re suggestive of active extravasation - Hgb 8.1 at outside hospital -Hgb this morning 7.4 down from 7.7 on admission - Patient had been taking her warfarin and bridging with Lovenox -Vitamin K given in ED -INR 2.2 this morning, repeat INR 2.0 this afternoon -INR target 2.0-3.0 due to mechanical aortic valve -IR consulted, recommendations: -No acute intervention at this time -Hematoma appears stable -Can pursue prophylactic embolization due to necessity of anticoagulation and p atient with mechanical valve -Patient typed and crossed, consented for blood products -Patient denies hematemesis, melena, hematochezia. No concern for GI bleed at t his time. PLAN: > We will start heparin gtt. due to patient's mechanical aortic valve > Check INR, CBC Q6h > We will reengage IR for any sign of increased bleeding. > Patient scheduled for arterial embolization with IR on 11/06/2020 Cirrhosis Hx of colonic AVMs - Follows with Dr. 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 -BP 90s over 50s PLAN: > Hold Bumex for now with active bleeding Mechanical aortic valve - Implanted 2010 - VEGETABLE WASHING MACHINE OPERATOR warfarin 5mg daily, was bridging with Lovenox from prior admission -INR goal 2.0-3.5 -Patient given vitamin K on admission -INR 2.0 this afternoon, down from 2.2 this morning and 2.5 on admission. PLAN: > We will start heparin gtt. despite high risk for bleeding > Discussed plan with IR, scheduled for embolization 11/06/2020, will consult if increased signs of bleeding. Paroxysmal atrial fibrillation - Went into AF with RVR during 10/20-10/26 admission, given metoprolol and amiod arone likely 2/2 active GIB - Was not discharged on anti-arrhythmic therapy Remote hx of lymphoma - s/p chemotherapy in 2004 FEN: no IVF, electrolytes reviewed, Diet NPO for potential IR procedure. Prophalyxis: Heparin GTT Disposition: Admit to inpatient. Code status: Full (Discussed on 11/04/2020) Patient seen and discussed with Dr. Derrick Hayes MD Internal Medicine, PGY1 Available on [employer] Subjective Zaria Paulson reports significant pain this morning in her left lower quadran t related to her hematoma. She states that she cannot get out of bed or bend du e to pain. She describes pain as constant dull aching, nonradiating. Patient a lso reports significant nausea. She states that she vomited once yesterday afte rnoon but none overnight. Review of Systems: Review of Systems Constitutional: Negative for chills and fever. Respiratory: Negative for cough and shortness of breath. Cardiovascular: Negative for chest pain and palpitations. Gastrointestinal: Positive for nausea and vomiting. Genitourinary: Negative for dysuria. Musculoskeletal: Negative for myalgias. Skin: Negative for rash. Neurological: Negative for dizziness and headaches. Endo/Heme/Allergies: Bruises/bleeds easily. Objective Vital Signs: Last Filed Vital Signs: 24 Miguel r Range BP: 96/57 (11/05 1538) Temp: 36.4 C (97.6 F) (11/05 1538) Pulse: 97 (11/05 1538) Respirations: 16 PER MINUTE (11/05 1538) SpO2: 98 % (11/05 1538) Height: 157.5 cm (62") (11/05 2019) BP: (90-102)/(54-61) Temp: [36.3 C (97.4 F)-37.1 C (98.7 F)] Pulse: [94-104] Respirations: [16 PER MINUTE-18 PER MINUTE] SpO2: [95 %-100 %] Intensity Pain Scale (Self Report): 9 (11/05/20 1048) Vitals: 11/04/20201911/05/20 0649 Weight: 63.8 kg (140 lb 9.6 oz) 65 kg (143 lb 4.8 oz) Intake/Output Summary: (Last 24 hours) Intake/Output Summary (Last 24 hours) at 11/05/2020 1543 Last data filed at 11/05/2020 1100 Gross per 24 hour Intake 840 ml Output 950 ml Net -110 ml Stool Occurrence: 0 Physical Exam General Appearance: NAD, appears stated age Skin: warm, dry, no ulcers or xanthomas Eyes: conjunctivae and lids normal, pupils are equal and round, no scleral icter us Lips & Oral Mucosa: no pallor or cyanosis Respiratory Effort: breathing comfortably, no respiratory distress Auscultation/Percussion: lungs clear to auscultation, no rales or rhonchi, no wh eezing Cardiac Rhythm: regular rhythm and normal rate Cardiac Auscultation: Loud blowing systolic murmur in the tricuspid region radia ting to abdomen, mechanical S2 click consistent with aortic valve. Murmurs: no murmur Carotid Arteries:no bruit, no JVD Lower Extremity Edema: no lower extremity edema Abdominal Exam: Protuberant soft, exquisitely tender in left lower quadrant with out guarding or rebound, notable induration without erythema, mild ecchymoses in left lower quadrant consistent with Lovenox injection sites. No masses, bowel sounds normal Language and Memory: patient responsive and seems to comprehend information Neurologic Exam: neurological assessment grossly intact Medications Medications Scheduled Meds:acetaminophen (TYLENOL EXTRA STRENGTH) tablet 500 mg, 500 mg, Ora l, Q6H* levothyroxine (SYNTHROID) tablet 75 mcg, 75 mcg, Oral, QDAY 30 min before breakf ast pantoprazole DR (PROTONIX) tablet 40 mg, 40 mg, Oral, QDAY(21) sertraline (ZOLOFT) tablet 100 mg, 100 mg, Oral, QDAY Continuous Infusions: heparin (porcine) 20,000 units/D5W 500 mL infusion (std conc)(premade) PRN and Respiratory Meds:oxyCODONE Q6H PRN, trimethobenzamide Q6H PRN Associated attestation - Derrick Meza MD - 11/05/2020 5:11 PM CDT I personally performed the turpin portions of the E/M visit, discussed case with Me d III team and Dr Hayes and concur with his documentation of history, physica l exam, assessment, and treatment plan unless otherwise outlined with my notati ons. Admitted as a transfer for rectus abdominal muscle hematoma with extravasation. Reviewed image with IR - it appears there is tamponade of the hematoma with no a ctive bleeding Has aortic valve prosthetic valve hence anticoagulation is a necessity - hence a fter discussing with IR - will keep NPO and start Heparin gtt, with plan to embo lize if there is any re bleeding. Monitor H/H, hemodynamics and expansion of hematoma Derrick Meza MD Department of Internal Medicine, Hospitalist [phone] * Fadumo Beard RN - 11/04/2020 5:33 PM CDT Patient arrived on unit via cart accompanied by transport. Patient transferred t o the bed with assistance. Assessment completed, refer to flowsheet for details. Orders released, reviewed, and implemented as appropriate. Oriented to surround ings, call light within reach. Plan of care reviewed. Will continue to monitor and assess. This RN paged Med private AOD 3x to let MD know the patient arrived to the unit. documented in this encounter H&P Notes * Meliza Almaguer MD - 11/06/2020 3:38 AM CDT IR Pre-Procedure History and Physical/Sedation Plan Procedure Date: 11/06/2020 Planned Procedure(s): IR mesenteric angiogram with possible coiling/stenting Procedural code status: Full Code Indication: Rectus sheath hematoma and extra-peritoneal hematoma. Chief Complaint: 60yo F with a PMH of cirrhosis from unclear etiology (possible chemo-induced), non-ischemic cardiomyopathy, chronic heart failure with preserv ed ejection fraction, mechanical aortic valve on warfarin, paroxysmal atrial fib rillation, and remote hx of lymphoma who presented from OSH for abdominal pain. Found to have rectus sheath hematoma and extra-peritoneal hematoma on CT imaging . Became hemodynamically unstable overnight, BP 70's/50's, pulse 130's, Hg 6.4. Team called in for angiogram. History of Present Illness: Zaria Paulson is a 60 y.o. female with a history as listed below who presents today for procedure. Patient Active Problem List Diagnosis Date Noted Nontraumatic rectus hematoma 11/04/2020 Hypoalbuminemia 10/23/2020 LEONORA [...] valve prosthesis present 06/07/2020 Chronic anticoagulation 06/07/2020 History of endocarditis 06/07/2020 Medical History: Diagnosis Date Cancer (HCC) Non- hodgkins lymphoma, chemo Disorder of thyroid gland Hypertension Iron deficiency anemia 08/03/2020 Iron deficiency anemia 08/03/2020 Surgical History: Procedure Laterality Date AORTIC VALVE REPLACEMENT 05/2009 mechanical ESOPHAGOGASTRODUODENOSCOPY WITH BIOPSY - FLEXIBLE N/A 06/06/2020 Performed by Bao Hernández MD at [facility] COLONOSCOPY DIAGNOSTIC WITH SPECIMEN COLLECTION BY BRUSHING/ WASHING - FLEXI BLE N/A 06/06/2020 Performed by Bao Hernández MD at [facility] ANGIOGRAPHY CORONARY ARTERY WITH RIGHT AND LEFT HEART CATHETERIZATION N/A Performed by Higinio Clarke MD at [facility] [facility] POSSIBLE PERCUTANEOUS CORONARY STENT PLACEMENT WITH ANGIOPLASTY N/A Performed by Higinio Clarke MD at [facility] [employer] ESOPHAGOGASTRODUODENOSCOPY WITH SPECIMEN COLLECTION BY BRUSHING/ WASHING N/A 10/21/2020 Performed by Cosmo Gomez MD at [facility] SIGMOIDOSCOPY WITH CONTROL OF BLEEDING - FLEXIBLE N/A 10/21/2020 Performed by Cosmo Gomez MD at [facility] SIGMOIDOSCOPY WITH DIRECTED SUBMUCOSAL INJECTION - FLEXIBLE 10/21/2020 Performed by Cosmo Gomez MD at [facility] Social History Tobacco Use Smoking status: Never Smoker Smokeless tobacco: Never Used Substance Use Topics Alcohol use: Not Currently Family History Problem Relation Age of Onset COPD Mother Medications Prior to Admission Medication Sig Dispense Refill Last Dose ascorbic acid (VITAMIN C) 500 mg tablet Take 500 mg by mouth daily. 021 bumetanide (BUMEX) 1 mg tablet Take three tablets by mouth twice daily. (Pat ient taking differently: Take 4 mg by mouth twice daily.) 180 tablet 0 11/04/2020 calcium carbonate (OS-KRUPA) 1250 mg tablet Take 1,250 mg by mouth daily. enoxaparin (LOVENOX) 60 mg syringe Inject 0.6 mL under the skin every 12 miguel rs. 14 each 0 11/04/2020 ergocalciferol (VITAMIN D-2) 1,250 mcg (50,000 unit) capsule Take 1 capsule by mouth every 7 days. 11/01/2020 fluticasone propionate (FLONASE) 50 mcg/actuation nasal spray, suspension Ap ply to each nostril as directed daily. Shake bottle gently before using. 11/03 levothyroxine (SYNTHROID) 75 mcg tablet Take 75 mcg by mouth daily 30 minute s before breakfast. 11/04/2020 metOLazone (ZAROXOLYN) 2.5 mg tablet Take one tablet by mouth twice weekly. Take on Friday and Friday. When directed, take 30-60 minutes prior to your Bumex. 40 tablet 1 11/04/[address] (PRILOSEC) 40 mg capsule Take 40 mg by mouth twice daily. ondansetron (ZOFRAN) 4 mg tablet Take 4 mg by mouth every 8 hours as needed for Nausea or Vomiting. Past Week potassium chloride SR (K-DUR) 20 mEq tablet Take 20 mEq by mouth twice daily . Take with a meal and a full glass of water. 11/04/2020 sertraline (ZOLOFT) 100 mg tablet Take 100 mg by mouth daily. 11/03/2020 VASCEPA 1 gram capsule TAKE 2 CAPSULES BY MOUTH TWICE DAILY WITH MEALS 10/22 warfarin (COUMADIN) 5 mg tablet Take one tablet by mouth daily. Take as dire cted by physician managing INR. 90 tablet 0 11/04/2020 No Known Allergies Review of Systems ROS negative except for: Abdominal pain. Previous Personal Anesthetic/Sedation History: Denies adverse events related to sedation/anesthesia. Previous Family Anesthetic/Sedation History: Denies adverse events related to se dation/anesthesia. Physical Exam: Vital Signs: Last Filed In 24 Hours Vital Signs: 24 Hour Range BP: 92/60 (11/06 328) Temp: 36.6 C (97.8 F) (11/06 328) Pulse: 109 (11/06 328) Respirations: 17 PER MINUTE (11/06 328) SpO2: 100 % (11/06 328) BP: (69-105)/(33-61) Temp: [36.3 C (97.4 F)-37.1 C (98.7 F)] Pulse: [63-130] Respirations: [13 PER MINUTE-21 PER MINUTE] SpO2: [97 %-100 %] Intensity Pain Scale (Self Report): 10 (11/05/20 2140) General appearance: A+O x 4, abdominal pain. Neurologic: Grossly normal. Lungs: Non labored at rest. Heart: Regular rate and rhythm Abdomen: Non-distended, TTP. NPO status: Acceptable Status: Not Anesthesia Classification: ASA III (A patient with a severe systemic disease th at limits activity, but is not incapacitating) Pre-operative anxiolysis Plan: Moderate sedation Sedation/Medication Plan: Moderate sedation Discussion/Reviews: Physician has discussed risks and alternatives of this type of sedation and above planned procedures with patient Lab/Radiology/Other Diagnostic Tests: Labs: Pertinent labs reviewed Meliza Almaguer MD * Ale Rojas APRN-TWYLA - 11/05/2020 3:31 PM CDT IR Pre-Procedure History and Physical/Sedation Plan Procedure Date: 11/05/2020 Planned Procedure(s): Mesenteric angiogram, possible intervention Procedural code status: Full Code Indication: GI Bleed, rectus abdominus and extra-peritoneal hematoma Chief Complaint: Hematoma History of Present Illness: Zaria Paulson is a 60 y.o. female with a history as listed below who presents today for procedure. 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 Concern for continued bleeding with restarting anticoagulation, will plan for mesenteric angiogram- possible intervention. Dr. Rhodes and Dr. Greene discussed plan of ca re. Patient reported lower abdominal pain. Patient Active Problem List Diagnosis Date Noted GIB (gastrointestinal bleeding) 11/04/2020 Hypoalbuminemia 10/23/2020 LEONORA (acute kidney injury) [...] valve prosthesis present 06/07/2020 Chronic anticoagulation 06/07/2020 History of endocarditis 06/07/2020 Medical History: Diagnosis Date Cancer (HCC) Non- hodgkins lymphoma, chemo Disorder of thyroid gland Hypertension Iron deficiency anemia 08/03/2020 Iron deficiency anemia 08/03/2020 Surgical History: Procedure Laterality Date AORTIC VALVE REPLACEMENT 05/2009 mechanical ESOPHAGOGASTRODUODENOSCOPY WITH BIOPSY - FLEXIBLE N/A 06/06/2020 Performed by Bao Hernández MD at [facility] COLONOSCOPY DIAGNOSTIC WITH SPECIMEN COLLECTION BY BRUSHING/ WASHING - FLEXI BLE N/A 06/06/2020 Performed by Bao Hernández MD at [facility] ANGIOGRAPHY CORONARY ARTERY WITH RIGHT AND LEFT HEART CATHETERIZATION N/A Performed by Higinio Clarke MD at [facility] [employer] POSSIBLE PERCUTANEOUS CORONARY STENT PLACEMENT WITH ANGIOPLASTY N/A Performed by Higinio Clarke MD at [facility] [employer] ESOPHAGOGASTRODUODENOSCOPY WITH SPECIMEN COLLECTION BY BRUSHING/ WASHING N/A 10/21/2020 Performed by Cosmo Gomez MD at [facility] SIGMOIDOSCOPY WITH CONTROL OF BLEEDING - FLEXIBLE N/A 10/21/2020 Performed by Cosmo Gomez MD at [facility] SIGMOIDOSCOPY WITH DIRECTED SUBMUCOSAL INJECTION - FLEXIBLE 10/21/2020 Performed by Cosmo Gomez MD at [facility] Social History Tobacco Use Smoking status: Never Smoker Smokeless tobacco: Never Used Substance Use Topics Alcohol use: Not Currently Family History Problem Relation Age of Onset COPD Mother Medications Prior to Admission Medication Sig Dispense Refill Last Dose ascorbic acid (VITAMIN C) 500 mg tablet Take 500 mg by mouth daily. 021 bumetanide (BUMEX) 1 mg tablet Take three tablets by mouth twice daily. (Pat ient taking differently: Take 4 mg by mouth twice daily.) 180 tablet 0 11/04/2020 calcium carbonate (OS-KRUPA) 1250 mg tablet Take 1,250 mg by mouth daily. enoxaparin (LOVENOX) 60 mg syringe Inject 0.6 mL under the skin every 12 miguel rs. 14 each 0 11/04/2020 ergocalciferol (VITAMIN D-2) 1,250 mcg (50,000 unit) capsule Take 1 capsule by mouth every 7 days. 11/01/2020 fluticasone propionate (FLONASE) 50 mcg/actuation nasal spray, suspension Ap ply to each nostril as directed daily. Shake bottle gently before using. 11/03 levothyroxine (SYNTHROID) 75 mcg tablet Take 75 mcg by mouth daily 30 minute s before breakfast. 11/04/2020 metOLazone (ZAROXOLYN) 2.5 mg tablet Take one tablet by mouth twice weekly. Take on Friday and Friday. When directed, take 30-60 minutes prior to your Bumex. 40 tablet 1 11/04/[address] (PRILOSEC) 40 mg capsule Take 40 mg by mouth twice daily. ondansetron (ZOFRAN) 4 mg tablet Take 4 mg by mouth every 8 hours as needed for Nausea or Vomiting. Past Week potassium chloride SR (K-DUR) 20 mEq tablet Take 20 mEq by mouth twice daily . Take with a meal and a full glass of water. 11/04/2020 sertraline (ZOLOFT) 100 mg tablet Take 100 mg by mouth daily. 11/03/2020 VASCEPA 1 gram capsule TAKE 2 CAPSULES BY MOUTH TWICE DAILY WITH MEALS 10/22 warfarin (COUMADIN) 5 mg tablet Take one tablet by mouth daily. Take as dire cted by physician managing INR. 90 tablet 0 11/04/2020 No Known Allergies Review of Systems Gastrointestinal: positive for abdominal pain Previous Personal Anesthetic/Sedation History: Denies adverse events related to sedation/anesthesia. Previous Family Anesthetic/Sedation History: Denies adverse events related to se dation/anesthesia. Physical Exam: Vital Signs: Last Filed In 24 Hours Vital Signs: 24 Hour Range BP: 95/54 (11/05 1312) Temp: 37.1 C (98.7 F) (11/05 1312) Pulse: 104 (11/05 1312) Respirations: 18 PER MINUTE (11/05 1312) SpO2: 97 % (11/05 1312) Height: 157.5 cm (62") (11/05 2019) BP: (90-102)/(54-61) Temp: [36.3 C (97.4 F)-37.1 C (98.7 F)] Pulse: [94-104] Respirations: [16 PER MINUTE-18 PER MINUTE] SpO2: [95 %-100 %] Intensity Pain Scale (Self Report): 9 (11/05/20 1048) General appearance: Alert and no distress noted. Neurologic: Grossly normal. Lungs: Non labored at rest. Heart: Regular rate and rhythm Abdomen: tenderness noted Airway: airway assessment performed Mallampati II (soft palate, uvula, fauces v isible) Head and Neck: no abnormalities noted Mouth: no abnormalities noted NPO status: Acceptable Status: Not Anesthesia Classification: ASA III (A patient with a severe systemic disease th at limits activity, but is not incapacitating) Pre-operative anxiolysis Plan: Midazolam Sedation/Medication Plan: Fentanyl, Lidocaine and Midazolam Discussion/Reviews: Physician has discussed risks and alternatives of this type of sedation and above planned procedures with patient Lab/Radiology/Other Diagnostic Tests: Labs: 24-hour labs: Results for orders placed or performed during the hospital encounter of 11/04/20 (from the past 24 hour(s)) CBC AND DIFF Collection Time: 11/04/20 8:40 PM Result Value Ref Range White Blood Cells 6.2 4.5 - 11.0 K/UL RBC 2.27 (L) 4.0 - 5.0 M/UL Hemoglobin 7.7 (L) 12.0 - 15.0 GM/DL Hematocrit 21.7 (L) 36 - 45 % MCV 95.6 80 - 100 FL MCH 33.9 26 - 34 PG MCHC 35.4 32.0 - 36.0 G/DL RDW 18.5 (H) 11 - 15 % Platelet Count 236 150 - 400 K/UL MPV 6.6 (L) 7 - 11 FL Neutrophils 83 (H) 41 - 77 % Lymphocytes 7 (L) 24 - 44 % Monocytes 7 4 - 12 % Eosinophils 2 0 - 5 % Basophils 1 0 - 2 % Absolute Neutrophil Count 5.18 1.8 - 7.0 K/UL Absolute Lymph Count 0.40 (L) 1.0 - 4.8 K/UL Absolute Monocyte Count 0.43 0 - 0.80 K/UL Absolute Eosinophil Count 0.13 0 - 0.45 K/UL Absolute Basophil Count 0.06 0 - 0.20 K/UL PROTIME INR (PT) Collection Time: 11/04/20 8:40 PM Result Value Ref Range INR 2.5 (H) 0.8 - 1.2 COMPREHENSIVE METABOLIC PANEL Collection Time: 11/04/20 8:40 PM Result Value Ref Range Sodium 134 (L) 137 - 147 MMOL/L Potassium 3.4 (L) 3.5 - 5.1 MMOL/L Chloride 100 98 - 110 MMOL/L Glucose 91 70 - 100 MG/DL Blood Urea Nitrogen 14 7 - 25 MG/DL Creatinine 1.00 0.4 - 1.00 MG/DL Calcium 8.1 (L) 8.5 - 10.6 MG/DL Total Protein 5.3 (L) 6.0 - 8.0 G/DL Total Bilirubin 0.9 0.3 - 1.2 MG/DL Albumin 2.9 (L) 3.5 - 5.0 G/DL Alk Phosphatase 67 25 - 110 U/L AST (SGOT) 25 7 - 40 U/L CO2 27 21 - 30 MMOL/L ALT (SGPT) 12 7 - 56 U/L Anion Gap 7 3 - 12 eGFR Non 57 (L) >60 mL/min eGFR >60 >60 mL/min BNP (B-TYPE NATRIURETIC PEPTI) Collection Time: 11/04/20 8:40 PM Result Value Ref Range B Type Natriuretic Peptide 279.0 (H) 0 - 100 PG/ML TSH WITH FREE T4 REFLEX Collection Time: 11/04/20 8:40 PM Result Value Ref Range TSH 10.59 (H) 0.35 - 5.00 MCU/ML TYPE & CROSSMATCH Collection Time: 11/04/20 8:40 PM Result Value Ref Range Units Ordered 0 Crossmatch Expires 11/07/2020,2358 Record Check FOUND ABO/RH(D) O POS Antibody Screen NEG Electronic Crossmatch YES FREE T4-FREE THYROXINE Collection Time: 11/04/20 8:40 PM Result Value Ref Range T4-Free 1.1 0.6 - 1.6 NG/DL COVID-19 (SARS-COV-2) PCR Collection Time: 11/04/20 8:41 PM Specimen: Nasopharyngeal; Flocked Swab Result Value Ref Range COVID-19 (SARS-CoV-2) PCR Source FLOCKED SWAB NASOPHARYNGEAL COVID-19 (SARS-CoV-2) PCR NOT DETECTED DN-NOT DETECTED CBC AND DIFF Collection Time: 11/05/20 5:46 AM Result Value Ref Range White Blood Cells 5.3 4.5 - 11.0 K/UL RBC 2.27 (L) 4.0 - 5.0 M/UL Hemoglobin 7.4 (L) 12.0 - 15.0 GM/DL Hematocrit 22.0 (L) 36 - 45 % MCV 97.0 80 - 100 FL MCH 32.8 26 - 34 PG MCHC 33.8 32.0 - 36.0 G/DL RDW 18.8 (H) 11 - 15 % Platelet Count 242 150 - 400 K/UL MPV 6.3 (L) 7 - 11 FL Neutrophils 79 (H) 41 - 77 % Lymphocytes 8 (L) 24 - 44 % Monocytes 9 4 - 12 % Eosinophils 3 0 - 5 % Basophils 1 0 - 2 % Absolute Neutrophil Count 4.15 1.8 - 7.0 K/UL Absolute Lymph Count 0.41 (L) 1.0 - 4.8 K/UL Absolute Monocyte Count 0.50 0 - 0.80 K/UL Absolute Eosinophil Count 0.16 0 - 0.45 K/UL Absolute Basophil Count 0.04 0 - 0.20 K/UL PROTIME INR (PT) Collection Time: 11/05/20 5:46 AM Result Value Ref Range INR 2.2 (H) 0.8 - 1.2 COMPREHENSIVE METABOLIC PANEL Collection Time: 11/05/20 5:46 AM Result Value Ref Range Sodium 137 137 - 147 MMOL/L Potassium 3.9 3.5 - 5.1 MMOL/L Chloride 102 98 - 110 MMOL/L Glucose 78 70 - 100 MG/DL Blood Urea Nitrogen 15 7 - 25 MG/DL Creatinine 1.04 (H) 0.4 - 1.00 MG/DL Calcium 8.4 (L) 8.5 - 10.6 MG/DL Total Protein 5.2 (L) 6.0 - 8.0 G/DL Total Bilirubin 0.9 0.3 - 1.2 MG/DL Albumin 2.9 (L) 3.5 - 5.0 G/DL Alk Phosphatase 72 25 - 110 U/L AST (SGOT) 23 7 - 40 U/L CO2 26 21 - 30 MMOL/L ALT (SGPT) 10 7 - 56 U/L Anion Gap 9 3 - 12 eGFR Non 54 (L) >60 mL/min eGFR >60 >60 mL/min PHOSPHORUS Collection Time: 11/05/20 5:46 AM Result Value Ref Range Phosphorus 2.7 2.0 - 4.5 MG/DL LACTIC ACID(LACTATE) Collection Time: 11/05/20 5:46 AM Result Value Ref Range Lactic Acid 0.8 0.5 - 2.0 MMOL/L CBC AND DIFF Collection Time: 11/05/20 11:18 AM Result Value Ref Range White Blood Cells 6.1 4.5 - 11.0 K/UL RBC 2.25 (L) 4.0 - 5.0 M/UL Hemoglobin 7.4 (L) 12.0 - 15.0 GM/DL Hematocrit 21.7 (L) 36 - 45 % MCV 96.7 80 - 100 FL MCH 32.9 26 - 34 PG MCHC 34.0 32.0 - 36.0 G/DL RDW 18.6 (H) 11 - 15 % Platelet Count 257 150 - 400 K/UL MPV 6.5 (L) 7 - 11 FL Neutrophils 84 (H) 41 - 77 % Lymphocytes 6 (L) 24 - 44 % Monocytes 8 4 - 12 % Eosinophils 1 0 - 5 % Basophils 1 0 - 2 % Absolute Neutrophil Count 5.17 1.8 - 7.0 K/UL Absolute Lymph Count 0.36 (L) 1.0 - 4.8 K/UL Absolute Monocyte Count 0.49 0 - 0.80 K/UL Absolute Eosinophil Count 0.07 0 - 0.45 K/UL Absolute Basophil Count 0.06 0 - 0.20 K/UL PROTIME INR (PT) Collection Time: 11/05/20 2:20 PM Result Value Ref Range INR 2.0 (H) 0.8 - 1.2 [facility] Pager [phone] * Homar Blackmon DO - 11/04/2020 7:58 PM CDT ADMISSION HISTORY AND PHYSICAL Name: Zaria Paulson 1 Admission Date: 11/04/2020 ASSESSMENT & PLAN Ms. Paulson is a 60yo F with a PMH of cirrhosis from unclear etiology, non-ischem ic cardiomyopathy, chronic heart failure with preserved ejection fraction, mecha nical aortic valve on warfarin, paroxysmal atrial fibrillation, and remote hx of lymphoma who presented via transfer from [facility] with concern for a left re ctus abdominal muscle hematoma and active extravasation. Left rectus abdominal hematoma - Patient [facility] with 2-day hx of LLQ pain, 10/10 bot h sharp and dull and now progressing toward her midline - She denies any melena or hematochezia - 11/04/20 CT a/p: complex enlargement and fluid collection within the left rect us abdominal muscle extending into the retroperitoneum and left pelvic musculatu re suggestive of active extravasation - Hgb 8.1 (Hgb at discharge from 10/26 8.2), INR 2.1 - Patient had been taking her warfarin and bridging with Lovenox PLAN: > CT uploaded to PACS, discussed with IR resident - will monitor for now but if any clinical instability will reengage for urgent embolization > Check INR, CBC Q8h > Type and cross, consented for blood products > Hold warfarin Cirrhosis Hx of colonic AVMs - Follows with Dr. Marti - Unclear etiology though pt states it was related to lymphoma treatment, kamar gasca was admitted from 10/20-10/26 for decompensated cirrhosis in setting of ascite s and volume overload - Underwent Flex sig with sigmoid dieulafoy s/p epinephrine, bipolar cautery, he moclips x 2 with successful hemostasis; received 6 units of pRBCs and 1 unit of FFP - No asterixis on exam PLAN: > Daily MELD labs > Continue PPI daily Non-ischemic cardiomyopathy Chronic heart failure with preserved ejection fraction Severe TR - Follows with Dr. 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 Code status: Full (Discussed on 11/04/2020) Patient discussed with Dr. Marcelo Blackmon DO Department of Internal Medicine, PGY-3 Pager: [phone] Chief Complaint: "My left side hurts" History of Present Illness Ms. Paulson is a 60yo F with a PMH of cirrhosis from unclear etiology, non-ischem ic cardiomyopathy, chronic heart failure with preserved ejection fraction, mecha nical aortic valve on warfarin, paroxysmal atrial fibrillation, and remote hx of lymphoma who presented via transfer from [facility] with concern for a left re ctus abdominal muscle hematoma and active extravasation. She was recently admitted roughly 2 weeks ago for GI bleeding in the setting of cirrhosis and was treated with ceftriaxone and pantoprazole. She had been doing well until the past few days her weight increased to about 140lbs. Her dry weigh t is 131lbs. Then yesterday she developed severe 10/10 LLQ pain and went to the ED at [facility]. A CT revealed a rectus abdominal hematoma w/concern for extra vasation. Hgb 8.1 and at baseline. INR 2.1. She denies any melena or hematochezi a at the moment. Review of Systems A comprehensive 14-point ROS was negative except for: LLQ pain Past medical history has a past medical history of Cancer (HCC), Disorder of thyroid gland, Hyperten esther, Iron deficiency anemia (08/03/2020), and Iron deficiency anemia (08/03/2020) . Past surgical history has a past surgical history that includes aortic valve replacement (05/2009); U pper gastrointestinal endoscopy (N/A, 06/06/2020); Colonoscopy (N/A, 06/06/2020); Upper gastrointestinal endoscopy (N/A, 10/21/2020); sigmoidoscopy (N/A, 10/21/2020 ); and sigmoidoscopy (10/21/2020). Family history Family History Problem Relation Age of Onset COPD Mother Social history Social History Socioeconomic History Marital status: Life [...] file Social History Narrative Not on file Allergies Patient has no known allergies. Medications Current Facility-Administered Medications Medication [START ON 11/05/2020] levothyroxine (SYNTHROID) tablet 75 mcg sertraline (ZOLOFT) tablet 100 mg Physical exam BP: 95/58 (11/04 1806) Temp: 37 C (98.6 F) (11/04 1806) Pulse: 99 (11/04 1806) Respirations: 16 PER MINUTE (11/04 1806) SpO2: 100 % (11/04 1806) Height: 157.5 cm (62") (11/05 2019) BP: (95)/(58) Temp: [37 C (98.6 F)] Pulse: [99] Respirations: [16 PER MINUTE] SpO2: [100 %] Vitals: 11/04/202019 Weight: 63.8 kg (140 lb 9.6 oz) General: Alert and response to question appropriately. VS as above. No acute d istress . Eyes: No conjunctival injection. EOMI. No scleral icterus. Ears, nose, mouth, and throat : No erythema. MMM. No erythema, exudate noted . Neck: Symmetric appearance without crepitus, no obvious mass or noticeable swel ling, Lungs: No use of accessory muscles. Clear to auscultation bilaterally without wheezes, rales, or rhonchi. Cardiovascular: Regular rate, S1, S2 normal, no murmurs, clicks, rubs, or gallop s appreciated . 2+ and symmetric, all extremities. No edema in BLE. Abdomen: severe TTP in LLQ, +fluid wave, global distension, normoactive bowel so unds Skin: Skin color normal, no obvious evidence of rashes. 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 R OM normal. No joints swelling or erythema. Neurologic: No asterixis, Alerted and oriented . 5/5 hand-brickmason supervisor and distal stre ngth. Normal ROM. Sensation grossly intact. No focal weakness. Psych: Alerted and oriented, calm, normal affect Labs No results for input(s): NA, K, CL, CO2, BUN, CR, GAP, MG, PO4, GFR, ALBUMIN, TO TBILI, AST, ALT in the last 72 hours. Recent Labs 11/02/20 0000 INR 2.4 Radiology and Other Diagnostic Procedures Review No results found. @[email or web address]@ Associated attestation - Albin Robertson MD - 11/04/2020 11:15 PM CDT ATTESTATION I personally performed the turpin portions of the E/M visit, discussed case with re sident and concur with resident documentation of history, physical exam, assessm ent, and treatment plan unless otherwise noted. 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 CBC every 8 hours, 2 large bore lines She is on coumadin for mechanical aortic valve Admission INR 2.5, gave 2 mg of vitamin k IV Daily INR IR consulted Repeat Ct abd tomorrow morning documented in this encounter Consult Notes * Gabriel Woodward MD - 11/09/2020 11:25 AM CDT Associated Order(s): CONSULT UROLOGY PHYSICIAN [facility] Urology Consult 11/09/2020 Patient: Zaria Paulson Admission Date: 11/04/2020, LOS: 5 days Admission Diagnosis: GIB (gastrointestinal bleeding) [K92.2] Date of Service: November 09, 2020 Reason for Consult: "Macroscopic hematuria, concern for bleeding in the kidneys or bladder. Please evaluate for possible intervention to stop hematuria." Referring Provider: Derrick Meza MD Attending Surgeon: Herman Katz MD Consult Performed by: Gabriel Woodward MD ASSESSMENT: 60 y.o. female with cirrhosis, CHF, mechanical aortic valve on warfa rin, Afib who presents after spontaneous left rectus hematoma s/p IR embolizatio n 11/06 now with gross hematuria. Patient will require formal hematuria workup to CT urogram and cystoscopy. We will delay the workup for several weeks to allow for some resolution of pelvic hematoma and allow complete workup of bleeding xiomara thesis. PLAN: - Urology will arrange outpatient CT Urogram and cystoscopy - Trevino catheter pre primary team. Okay for trial of void at any time per urolog y. Patient will likely have small bladder capacity related to compressing pelvic hematoma - Urology to sign off Will discuss with staff. Thank you for consulting Urology. Gabriel Woodward MD Urology PGY-3 Please page Urology office coordinator receptionist with any questions __ HPI: Zaria Paulson is a 60 y.o. female with cirrhosis, CHF, mechanical aortic valve on warfarin, Afib who presents after spontaneous left rectus hematoma s/p IR embolization 11/06 now with gross hematuria. Patient initially presented to [facility] on 11/04 with abdominal distention and urinary retention. A trevino catheter was placed with return of bloody urine. The patient was eventually transferred to where she underwent IR embolization of a bleeding epigastric artery. CT shows a large pelvic hematoma compressing the bladder. There is some high den sity material adjacent to the bladder which may represent extravasated contrast or blood products. The patient has never had an episode of gross hematuria previously. She cannot r ecall the chemotherapeutic agents used for treatment of her non-hodgkin lymphoma and records are not available. No workplace exposure to carcinogenic chemicals. Medical History: Diagnosis Date Cancer (HCC) Non- hodgkins lymphoma, chemo Disorder of thyroid gland Hypertension Iron deficiency anemia 08/03/2020 Iron deficiency anemia 08/03/2020 Surgical History: Procedure Laterality Date AORTIC VALVE REPLACEMENT 05/2009 mechanical ESOPHAGOGASTRODUODENOSCOPY WITH BIOPSY - FLEXIBLE N/A 06/06/2020 Performed by Bao Hernández MD at [facility] COLONOSCOPY DIAGNOSTIC WITH SPECIMEN COLLECTION BY BRUSHING/ WASHING - FLEXI BLE N/A 06/06/2020 Performed by Bao Hernández MD at [facility] ANGIOGRAPHY CORONARY ARTERY WITH RIGHT AND LEFT HEART CATHETERIZATION N/A Performed by Higinio Clarke MD at [facility] POSSIBLE PERCUTANEOUS CORONARY STENT PLACEMENT WITH ANGIOPLASTY N/A Performed by Higinio Clarke MD at [facility] [employer] ESOPHAGOGASTRODUODENOSCOPY WITH SPECIMEN COLLECTION BY BRUSHING/ WASHING N/A 10/21/2020 Performed by Cosmo Gomez MD at [facility] SIGMOIDOSCOPY WITH CONTROL OF BLEEDING - FLEXIBLE N/A 10/21/2020 Performed by Cosmo Gomez MD at [facility] SIGMOIDOSCOPY WITH DIRECTED SUBMUCOSAL INJECTION - FLEXIBLE 10/21/2020 Performed by Cosmo Gomez MD at [facility] Medications: Scheduled Meds:acetaminophen (TYLENOL EXTRA STRENGTH) tablet 500 mg, 500 mg, Ora l, Q6H* bumetanide (BUMEX) tablet 2 mg, 2 mg, Oral, BID(9-17) levothyroxine (SYNTHROID) tablet 75 mcg, 75 mcg, Oral, QDAY 30 min before breakf ast pantoprazole DR (PROTONIX) tablet 40 mg, 40 mg, Oral, QDAY(21) sertraline (ZOLOFT) tablet 100 mg, 100 mg, Oral, QDAY Continuous Infusions: PRN and Respiratory Meds:oxyCODONE Q6H PRN, prochlorperazine Q6H PRN, trimethobe nzamide Q6H PRN Allergies: Patient has no known allergies. Social History Socioeconomic History Marital status: Life [...] file Social History Narrative Not on file Family History Problem Relation Age of Onset COPD Mother Vitals: Vital Signs: Last Filed In 24 Hours Vital Signs: 24 Hour Range BP: 98/56 (11/09 842) Temp: 36.8 C (98.2 F) (11/09 842) Pulse: 95 (11/09 842) Respirations: 16 PER MINUTE (11/09 842) SpO2: 96 % (11/09 842) BP: (92-106)/(49-60) Temp: [36.7 C (98.1 F)-37.2 C (99 F)] Pulse: [75-107] Respirations: [16 PER MINUTE-18 PER MINUTE] SpO2: [96 %-100 %] Intensity Pain Scale (Self Report): 3 (11/09/20842) Intake/Output: Intake/Output Summary (Last 24 hours) at 11/09/2020 1129 Last data filed at 11/09/2020 1000 Gross per 24 hour Intake 240 ml Output 1600 ml Net -1360 ml Physical Exam: General: Alert, oriented, cooperative, no distress Head: Normocephalic, without obvious abnormality, atraumatic Eyes: EOMI, no scleral icterus Lungs: Unlabored on RA Heart: Regular rate, good peripheral perfusion Abdomen: Soft, mildly tender, left sided abdominal wall firmness, left flank hem atoma : Trevino catheter draining light pink urine Extremity: No clubbing, cyanosis, or edema Neurologic: Grossly intact. ROS: A complete review of systems was obtained and was negative except for the sympto ms reviewed above. Lab/Radiology/Other Diagnostic Tests: Recent Labs 11/06/20 1520 11/06/20 2130 11/07/20 0353 11/07/20 0524 11/07/20 0914 11/07/20 1850 11/08/20 0232 11/08/20 1004 11/08/20 1503 11/08/20 2128 11/09/20 0543 HGB 6.7* 7.1* 7.1* -- 6.7* 7.9* 7.3* 8.0* 7.6* 7.5* 7.4* HCT 20.2* 20.9* 21.3* -- 20.1* 23.9* 21.8* 23.6* 22.6* 21.3* 21.6* WBC -- 13.0* 13.8* -- 12.9* 11.9* 8.6 8.4 8.7 8.1 6.8 PLTCT -- 213 216 -- 194 211 180 203 195 194 203 NA -- -- -- 132* -- -- 131* -- -- -- 133* K -- -- -- 4.1 -- -- 3.9 -- -- -- 3.7 CL -- -- -- 101 -- -- 99 -- -- -- 100 CO2 -- -- -- 23 -- -- 24 -- -- -- 26 BUN -- -- -- 22 -- -- 24 -- -- -- 20 CR -- -- -- 1.35* -- -- 1.49* -- -- -- 1.20* GLU -- -- -- 97 -- -- 93 -- -- -- 88 CA -- -- -- 7.7* -- -- 7.8* -- -- -- 8.1* PO4 -- -- -- 2.7 -- -- 2.4 -- -- -- 2.7 ALBUMIN -- -- -- 2.5* -- -- 2.6* -- -- -- 2.7* TOTPROT -- -- -- 4.6* -- -- 4.9* -- -- -- 5.1* TOTBILI -- -- -- 1.1 -- -- 1.1 -- -- -- 1.4* AST -- -- -- 37 -- -- 27 -- -- -- 24 ALT -- -- -- 19 -- -- 14 -- -- -- 13 ALKPHOS -- -- -- 58 -- -- 65 -- -- -- 75 INR -- -- -- 1.5* -- -- 1.4* -- -- -- 1.3* Glucose: 88 (11/09/20 0543) Associated attestation - Herman Katz MD - 11/09/2020 7:47 PM CDT ATTESTATION I personally performed the turpin portions of the E/M visit, discussed case with re sident and concur with resident documentation of history, physical exam, assessm ent, and treatment plan unless otherwise noted. Zaria Paulson is a very pleasant 60-year-old female who has a history of cirrhosis , CHF, and mechanical aortic valve on anticoagulation, and atrial fibrillation w ho developed a spontaneous left rectus hematoma. She underwent IR embolization on November 06. She has since developed gross hematuria. She has no past history of smoking and no prior history of gross hematuria. On examination she has evidence of hematuria per her Trevino catheter drainage bag . Review of her CT scan reveals a large pelvic hematoma with some compression of t he bladder. This likely represents continued progression of her recent spontane ous bleed. At this time she is not having significant hematuria to contribute to any major ongoing blood loss. I would not recommend any testing or inpatient intervention s for this. I would recommend continuing her catheter until deemed appropriate by her primary team for removal. She should then undergo a voiding trial to ens ure adequate emptying. As an outpatient she will require a formal hematuria prachi luation with a cystoscopy and CT urogram. This will be set up as an outpatient. Staff name: Herman Katz MD Date: 11/09/2020 * Franci Temple MD - 11/09/2020 10:55 AM CDT Associated Order(s): CONSULT HEMATOLOGY PHYSICIAN General Consult Note Admission Date: 11/04/2020 LOS: 5 days Reason for Consult: Recurrent bleeding in multiple sites, was anticoagulated fo r mechanical aortic valve. Please assist with further hematologic work up for bl nele. Consult type: Opinion with orders Assessment/Plan Principal Problem: Nontraumatic rectus hematoma Active Problems: Transfusion reaction 60 yo female with PMH of AVR '11 on coumadin, cirrhosis, NICM, HFpEF, PAF and ly mphoma who is transferred from [facility] with concern for left rectus abdomina l hematoma. 1. # Left Rectus sheath abdominal hematoma # Left flank/hip hematoma # hematuria # Recent GI bleed # Acute blood loss anemia -Presented with hgb 8.1 @ OSH, dropped to 4.5 -11/04/20 CT a/p: complex enlargement and fluid collection within the left rectu s abdominal muscle extending into the retroperitoneum and left pelvic musculatur e suggestive of active extravasation -s/p IR coil embolization of inferior epigastric arteries 11/06/20 -was on coumadin + Lovenox 60mg bridge, INR 2.5 on admit s/p vitamin K in ED (of note, patient says she was only on Lovenox, not coumadin, due to upcoming cardi ac procedure but discharge summary and say both coumadin + lovenox) -recent hx of GI Bleed 10/20/20-10/26/20 requiring 5 units , Flex sig 10/21/20: oozi ng dieulafoy lesion s/p epi, cautery, 2 hemoclips -11/08 Vaginal exam with evidence of vaginal blood -11/08 L flank and hip hematoma discovered on rounds -repeat CT A/P 11/08: stable to slight improvement in a left hemipelvis and rectu s hematoma -urology consult pending -Hgb 7.4, last transfusion 11/07 -Current INR 1.3, fibrinogen 347, PTT 29.6, normal TEG and platelets 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 Cirrhosis -with hx of colonic AVMs -unclear etiology 4. Hx of non-Hodgkin's lymphoma -in 2004, last seen by 09/21/20 -Diagnosed/treated in [place], [place], stage III per pt- I attempted to get records b ut all were destroyed in the mantee -s/p multiagent chemo -06/01/20 CT C/A/P without LAD/masses/HSM 5. Hx of JANKI -s/p Injectafer 09/05/20 Recommendations: -Most likely abdominal bleeding 2/2 lovenox injections. Agree with cardiology to not bridge with Lovenox when coumadin is restarted. -Anticoagulation per cardiology Discussed with . Will sign off. ATTESTATION I personally interviewed and examined the patient. All notes made by myself are in italics. I have reviewed the history and ROS outlined by the nurse practition er. Chief Complaint: The patient is a 60-year-old woman with multiple medical comorbidities including cardiac disease, cirrhosis, and on long-term anticoagulation. She has complex medical presentation with abnormal bleeding including hematuria for which she is undergoing urology evaluation. She also reports possible vaginal bleeding. She denies GI blood loss. She was found to have abdominal wall hematoma Anticoagulation has been held at this time. PHYSICAL EXAM Gen: Alert/oriented NAD Eyes: pupils equal, sclera clear Lymph: no cervical/supraclavicular/axillary LAD CV: s1/s2 no murmur Pulm: CTAB Abd: soft, Nontender, nondistended, no organomegaly Ext: no edema Neuro: CN 2-12 grossly intact, nonfocal Radiology Review: I have personally reviewed all pertinent radiology reports. Laboratory Review: I have personally reviewed labs and significant labs noted in my HPI or Assessme nt/plan Pertinent additional labs have been reviewed and discussed in the assessment and plan Assessment/Plan: Principal Problem: Nontraumatic rectus hematoma Active Problems: Transfusion reaction We will defer to the urology team evaluation of the etiology of hematuria which is unlikely related to being on anticoagulation merrily. The location of the renal wall hematoma might be related to the injection site o f Lovenox. The patient and his spouse monitor require specific education about Lovenox administration in the future should that be utilized however we apprecia te the cardiology input regarding the lack of the need of Lovenox bridging in e future. Patient has tolerated anticoagulation otherwise fairly for several years. Will defer future care to the primary cardiology team. Franci Temple MD Area Director Of Home Health Sales Available on [employer] and [employer] History of Present Illness: Zaria Paulson is a 60 y.o. female with PMH of AVR '11 on coumadin, cirrhosis, NICM, HFpEF, PAF and lymphoma who is transferred fr [facility] with concern for left rectus abdominal hematoma. She denies any h istory of bleeding problems before 2 weeks ago. Has had 3 open heart surgeries, child etc. Without bleeding. Recent admission for GI Bleed, she was disc harge on Lovenox 60mg BID which she and admit to compliance with. Jennifer valenzuela patient says she was NOT taking coumadin along with the Lovenox due to upcomin g cardiac surgery but thought she was. On 11/01 started to notice abdomi nal swelling and by 11/04 had 10/10 pain. Denies previous vaginal bleeding or hem aturia. Denies use of ASA or NSAIDs, does take fish oil. Admits to hx of non-ho dgkins lymphoma in 2004 in the neck and chest, underwent "chemotherapy for about 1 year, got into remission." No hx of xrt. Medical History: Diagnosis Date Cancer (HCC) Non- hodgkins lymphoma, chemo Disorder of thyroid gland Hypertension Iron deficiency anemia 08/03/2020 Iron deficiency anemia 08/03/2020 Surgical History: Procedure Laterality Date AORTIC VALVE REPLACEMENT 05/2009 mechanical ESOPHAGOGASTRODUODENOSCOPY WITH BIOPSY - FLEXIBLE N/A 06/06/2020 Performed by Bao Hernández MD at [facility] COLONOSCOPY DIAGNOSTIC WITH SPECIMEN COLLECTION BY BRUSHING/ WASHING - FLEXIBLE N/A 06/06/2020 Performed by Bao Hernández MD at [facility] ANGIOGRAPHY CORONARY ARTERY WITH RIGHT AND LEFT HEART CATHETERIZATION N/A 2020 Performed by Higinio Clarke MD at [facility] [employer] POSSIBLE PERCUTANEOUS CORONARY STENT PLACEMENT WITH ANGIOPLASTY N/A 06/08/2020 Performed by Higinio Clarke MD at [facility] [employer] ESOPHAGOGASTRODUODENOSCOPY WITH SPECIMEN COLLECTION BY BRUSHING/ WASHING N/A Performed by Cosmo Gomez MD at [facility] SIGMOIDOSCOPY WITH CONTROL OF BLEEDING - FLEXIBLE N/A 10/21/2020 Performed by Cosmo Gomez MD at [facility] SIGMOIDOSCOPY WITH DIRECTED SUBMUCOSAL INJECTION - FLEXIBLE 10/21/2020 Performed by Cosmo Gomez MD at [facility] Social Hx: partner at bedside Social History Socioeconomic History Marital status: Life [...] file Social History Narrative Not on file Family History Problem Relation Age of Onset COPD Mother Allergies: Patient has no known allergies. Scheduled Meds:acetaminophen (TYLENOL EXTRA STRENGTH) tablet 500 mg, 500 mg, Ora l, Q6H* bumetanide (BUMEX) tablet 2 mg, 2 mg, Oral, BID(9-17) levothyroxine (SYNTHROID) tablet 75 mcg, 75 mcg, Oral, QDAY 30 min before breakf ast pantoprazole DR (PROTONIX) tablet 40 mg, 40 mg, Oral, QDAY(21) sertraline (ZOLOFT) tablet 100 mg, 100 mg, Oral, QDAY Continuous Infusions: PRN and Respiratory Meds:oxyCODONE Q6H PRN, prochlorperazine Q6H PRN, trimethobe nzamide Q6H PRN Review of Systems: Constitutional: + fatigue. Denies fever, chills, drenching night sweats, signifi cant weight gain/loss HEENT: Denies blurry vision, decreased hearing, tinnitus, sinus congestion or dr ainage, mouth sores or irritation, gingival bleeding Cardiovascular: Denies CP, palpitations, orthopnea, peripheral edema Pulmonary: + KC. Denies cough, purulent sputum production, wheezing, asthma, em physema, hemoptysis Gastrointestinal: + recent GI Bleed. Denies dysphagia, odynophagia, GERD, vomiti ng, diarrhea, constipation, hematemesis. Genitourinary: + hematuria. Denies dysuria, decreased urine output, urinary freq uency, urinary urgency, nocturia Musculoskeletal: + bilateral flank pain. Endocrine: Denies excessive thirst, dry skin, known thyroid abnormalities, heat/ cold intolerance Neurologic: Denies headache, seizures, numbness, tingling, focal weakness, confu esther, lethargy, disorientation Dermatologic: Denies rash, dry skin Hematologic: + abnormal bleeding Lymphatics: Denies new or changing lymph nodes, lymphedema Psychiatric: Denies anxiety, agitation, depression, mood swings Vital Signs: Last Filed in 24 hours Vital Signs: 24 hour Range BP: 98/56 (11/09 842) Temp: 36.8 C (98.2 F) (11/09 842) Pulse: 95 (11/09 842) Respirations: 16 PER MINUTE (11/09 842) SpO2: 96 % (11/09 842) BP: (92-106)/(49-60) Temp: [36.7 C (98.1 F)-37.2 C (99 F)] Pulse: [75-107] Respirations: [16 PER MINUTE-18 PER MINUTE] SpO2: [96 %-100 %] Physical Exam: General: A&O, no apparent distress Eyes: PERRL, anicteric sclera, conjunctiva and lids normal Neck: Supple, no rigidity Oropharynx: No erythema, exudates or lesions Respiratory: no tachypnea or oxygen use Cardiovascular: no tachycardia Abdomen: Bilateral side/flank ecchymosis. Soft, non-tender, non-distended. : Trevino with red urine Neurological: No focal deficits Extremities: No peripheral edema Skin: Scattered bruises. Lymph nodes: No cervical, axillary, supra/infraclavicular adenopathy Psychosocial: Appropriate Lab/Radiology/Other Diagnostic Tests: 24-hour labs: Results for orders placed or performed during the hospital encounter of 11/04/20 (from the past 24 hour(s)) CBC Collection Time: 11/08/20 3:03 PM Result Value Ref Range White Blood Cells 8.7 4.5 - 11.0 K/UL RBC 2.45 (L) 4.0 - 5.0 M/UL Hemoglobin 7.6 (L) 12.0 - 15.0 GM/DL Hematocrit 22.6 (L) 36 - 45 % MCV 92.5 80 - 100 FL MCH 31.1 26 - 34 PG MCHC 33.6 32.0 - 36.0 G/DL RDW 17.8 (H) 11 - 15 % Platelet Count 195 150 - 400 K/UL MPV 6.8 (L) 7 - 11 FL FIBRINOGEN Collection Time: 11/08/20 5:46 PM Result Value Ref Range Fibrinogen 347 200 - 400 MG/DL CBC Collection Time: 11/08/20 9:28 PM Result Value Ref Range White Blood Cells 8.1 4.5 - 11.0 K/UL RBC 2.33 (L) 4.0 - 5.0 M/UL Hemoglobin 7.5 (L) 12.0 - 15.0 GM/DL Hematocrit 21.3 (L) 36 - 45 % MCV 91.7 80 - 100 FL MCH 32.4 26 - 34 PG MCHC 35.4 32.0 - 36.0 G/DL RDW 17.7 (H) 11 - 15 % Platelet Count 194 150 - 400 K/UL MPV 6.6 (L) 7 - 11 FL PROTIME INR (PT) Collection Time: 11/09/20 5:43 AM Result Value Ref Range INR 1.3 (H) 0.8 - 1.2 COMPREHENSIVE METABOLIC PANEL Collection Time: 11/09/20 5:43 AM Result Value Ref Range Sodium 133 (L) 137 - 147 MMOL/L Potassium 3.7 3.5 - 5.1 MMOL/L Chloride 100 98 - 110 MMOL/L Glucose 88 70 - 100 MG/DL Blood Urea Nitrogen 20 7 - 25 MG/DL Creatinine 1.20 (H) 0.4 - 1.00 MG/DL Calcium 8.1 (L) 8.5 - 10.6 MG/DL Total Protein 5.1 (L) 6.0 - 8.0 G/DL Total Bilirubin 1.4 (H) 0.3 - 1.2 MG/DL Albumin 2.7 (L) 3.5 - 5.0 G/DL Alk Phosphatase 75 25 - 110 U/L AST (SGOT) 24 7 - 40 U/L CO2 26 21 - 30 MMOL/L ALT (SGPT) 13 7 - 56 U/L Anion Gap 7 3 - 12 eGFR Non 46 (L) >60 mL/min eGFR 56 (L) >60 mL/min PHOSPHORUS Collection Time: 11/09/20 5:43 AM Result Value Ref Range Phosphorus 2.7 2.0 - 4.5 MG/DL CBC Collection Time: 11/09/20 5:43 AM Result Value Ref Range White Blood Cells 6.8 4.5 - 11.0 K/UL RBC 2.33 (L) 4.0 - 5.0 M/UL Hemoglobin 7.4 (L) 12.0 - 15.0 GM/DL Hematocrit 21.6 (L) 36 - 45 % MCV 92.5 80 - 100 FL MCH 31.6 26 - 34 PG MCHC 34.1 32.0 - 36.0 G/DL RDW 17.3 (H) 11 - 15 % Platelet Count 203 150 - 400 K/UL MPV 6.8 (L) 7 - 11 FL BILIRUBIN, DIRECT Collection Time: 11/09/20 5:43 AM Result Value Ref Range Bilirubin, Direct 0.4 (H) <0.4 MG/DL LDH-LACTATE DEHYDROGENASE Collection Time: 11/09/20 5:43 AM Result Value Ref Range Lactate Dehydrogenase 241 (H) 100 - 210 U/L HAPTOGLOBIN Collection Time: 11/09/20 9:45 AM Result Value Ref Range Haptoglobin <30 16 - 200 MG/DL Pertinent radiology reviewed. Kya Huizar APRN-ANALYST SALES Pager [phone] * Fiordaliza Harding APRN-NP - 11/07/2020 9:11 AM CDT Associated Order(s): CONSULT CARDIOLOGY PHYSICIAN Heart Failure Consult NAME:Zaria Paulson :1960 AGE: 60 y.o. 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 Magnesium level daily. Keep Potassium greater than 4.0 and Magnesi um greater than 2.0. - 2000 mg sodium dietary restriction. - Fluid Restriction 1.5L - Strict I/O. - Standing scale daily weight. - Poultry Packer consultation to discuss sodium restricted diet recommended. - Pharmacy/Medication counseling recommended. - Case Management/Social Work recommended. - Physical Therapy consult recommended. - Heart Failure to sign off Follow Up: Berna Madison APRN in the HF clinic on 11/15/2020 Patient seen and discussed with Dr. Tate Harding APRN Heart Failure Consult Assessment: Mechanical aortic valve in situ - initial surgery in 1975 at age 16 - second sternotomy with bioprosthetic valve 1997 - third sternotomy with mechanical valve 2010 - on warfarin for anticoagulation-currently on hold > resume warfarin with INR goal of 1.6-2.0 > if further bleeding, will need to stop anticoagulation and resume asa only RV failure Acute on chronic diastolic HFpEF, EF: 60%. Major Complications or Comorbidities ([place]): acute/ acute on chronic systolic and /or diastolic heart failure NYHA functional class III (marked limitation of physical activity - comfortable at rest, but less than ordinary activity causes symptoms of HF e.g., getting niru ssed or standing from a sitting position), ACC Stage C (structural heart disease with prior or current symptoms of HF). She presents with signs of hypervolemia with bi ventricular failure with signs of low flow state. 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 Changes BB NA ACEI/ARB/ARNI NA SGLT-2 Inhibitor Aldosterone Antagonist none Hydralazine/Nitrate none Ivabradine none HRMT No (EF>35%) Anticoagulation for AVR Yes-warfarin Cardiac Rehab Evaluation for LVEF <40% Left rectus hematoma Anemia - presented to OSH with abdominal pain - found to have complex enlargement and fluid collection with the left rectus ab dominal muscle extending into the retroperitoneum suggestive of active extravasa tion on CT - became hemodynamically unstable with BP 70/50s, HR 130s, Hgb 6.4 - went to IR mesenteric angiogram with successful coiling of the inferior epigas tric arteries - 11/07: Hgb 6.7->transfuse again today [facility] 06/08/2020: no significant CAD Paroxysmal atrial fibrillation > 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 Liver cirrhosis - secondary to chemotherapy - follows with hepatology at Reason for Consultation: Evaluation and recommendations re: heart failure History of Present Illness: Zaria Paulson is a 60 y.o. female who we are aske d to see for evaluation of heart failure. She has a past medical history of hea rt failure with preserved ejection fraction, nonischemic cardiomyopathy, status post aortic valve replacement with 3 separate occasions, paroxysmal atrial fibri llation, hypertension, history of endocarditis, anemia, chronic kidney disease, hypothyroidism, depression, non-Hodgkin's lymphoma, and cirrhosis thought to be secondary to chemotherapy. She was transferred from OSH after presenting there with abdominal pain. She underwent a CT of the abdomen which revealed a left re ctus abdominal muscle hematoma. Heart failure was consulted regarding her antic oagulation for her AVR and her abdominal hematoma. She currently complains of fa tigue and abdominal fullness. She currently denies paroxysmal nocturnal dyspnea, orthopnea, lightheadedness, near syncope, palpitations and chest pain. Review of Systems: A comprehensive review of systems was negative except for: Constitutional: posit cynthia for fatigue Gastrointestinal: positive for abdominal distension Medical History: Diagnosis Date Cancer (HCC) Non- hodgkins lymphoma, chemo Disorder of thyroid gland Hypertension Iron deficiency anemia 08/03/2020 Iron deficiency anemia 08/03/2020 Surgical History: Procedure Laterality Date AORTIC VALVE REPLACEMENT 05/2009 mechanical ESOPHAGOGASTRODUODENOSCOPY WITH BIOPSY - FLEXIBLE N/A 06/06/2020 Performed by Bao Hernández MD at [facility] COLONOSCOPY DIAGNOSTIC WITH SPECIMEN COLLECTION BY BRUSHING/ WASHING - FLEXI BLE N/A 06/06/2020 Performed by Bao Hernández MD at [facility] ANGIOGRAPHY CORONARY ARTERY WITH RIGHT AND LEFT HEART CATHETERIZATION N/A Performed by Higinio Clarke MD at [facility] POSSIBLE PERCUTANEOUS CORONARY STENT PLACEMENT WITH ANGIOPLASTY N/A Performed by Higinio Clarke MD at [facility] ESOPHAGOGASTRODUODENOSCOPY WITH SPECIMEN COLLECTION BY BRUSHING/ WASHING N/A 10/21/2020 Performed by Cosmo Gomez MD at [facility] SIGMOIDOSCOPY WITH CONTROL OF BLEEDING - FLEXIBLE N/A 10/21/2020 Performed by Cosmo Gomez MD at [facility] SIGMOIDOSCOPY WITH DIRECTED SUBMUCOSAL INJECTION - FLEXIBLE 10/21/2020 Performed by Cosmo Gomez MD at [facility] Family History Problem Relation Age of [...] Objective: Allergies: No Known Allergies Medications: Scheduled Meds:acetaminophen (TYLENOL EXTRA STRENGTH) tablet 500 mg, 500 mg, Ora l, Q6H* levothyroxine (SYNTHROID) tablet 75 mcg, 75 mcg, Oral, QDAY 30 min before breakf ast pantoprazole DR (PROTONIX) tablet 40 mg, 40 mg, Oral, QDAY(21) sertraline (ZOLOFT) tablet 100 mg, 100 mg, Oral, QDAY Continuous Infusions: PRN and Respiratory Meds:oxyCODONE Q6H PRN, prochlorperazine Q6H PRN, trimethobe nzamide Q6H PRN Medications Prior to Admission Medication Sig Dispense Refill Last Dose ascorbic acid (VITAMIN C) 500 mg tablet Take 500 mg by mouth daily. 021 bumetanide (BUMEX) 1 mg tablet Take three tablets by mouth twice daily. (Pat ient taking differently: Take 4 mg by mouth twice daily.) 180 tablet 0 11/04/2020 calcium carbonate (OS-KRUPA) 1250 mg tablet Take 1,250 mg by mouth daily. enoxaparin (LOVENOX) 60 mg syringe Inject 0.6 mL under the skin every 12 miguel rs. 14 each 0 11/04/2020 ergocalciferol (VITAMIN D-2) 1,250 mcg (50,000 unit) capsule Take 1 capsule by mouth every 7 days. 11/01/2020 fluticasone propionate (FLONASE) 50 mcg/actuation nasal spray, suspension Ap ply to each nostril as directed daily. Shake bottle gently before using. 11/03 levothyroxine (SYNTHROID) 75 mcg tablet Take 75 mcg by mouth daily 30 minute s before breakfast. 11/04/2020 metOLazone (ZAROXOLYN) 2.5 mg tablet Take one tablet by mouth twice weekly. Take on Friday and Friday. When directed, take 30-60 minutes prior to your Bumex. 40 tablet 1 11/04/[address] (PRILOSEC) 40 mg capsule Take 40 mg by mouth twice daily. ondansetron (ZOFRAN) 4 mg tablet Take 4 mg by mouth every 8 hours as needed for Nausea or Vomiting. Past Week potassium chloride SR (K-DUR) 20 mEq tablet Take 20 mEq by mouth twice daily . Take with a meal and a full glass of water. 11/04/2020 sertraline (ZOLOFT) 100 mg tablet Take 100 mg by mouth daily. 11/03/2020 VASCEPA 1 gram capsule TAKE 2 CAPSULES BY MOUTH TWICE DAILY WITH MEALS 10/22 warfarin (COUMADIN) 5 mg tablet Take one tablet by mouth daily. Take as dire cted by physician managing INR. 90 tablet 0 11/04/2020 Vital Signs: Last Filed Vital Signs: 24 Hour Range BP: 94/48 (11/07 836) Temp: 36.8 C (98.2 F) (11/07 836) Pulse: 97 (11/07 836) Respirations: 18 PER MINUTE (11/07 836) SpO2: 100 % (11/07 836) BP: (90-112)/(48-78) Temp: [36.3 C (97.4 F)-37.2 C (98.9 F)] Pulse: [77-129] Respirations: [16 PER MINUTE-19 PER MINUTE] SpO2: [96 %-100 %] Wt Readings from Last 10 Encounters: 11/07/20 66.2 kg (145 lb 15.1 oz) 10/26/20 60.4 kg (133 lb 3.2 oz) 10/21/20 61.7 kg (136 lb 0.4 oz) 10/12/20 61.7 kg (136 lb) 09/07/20 61.2 kg (135 lb) 08/24/20 60.6 kg (133 lb 9.6 oz) 08/22/20 59.9 kg (132 lb) 08/03/20 66 kg (145 lb 9.6 oz) 08/01/20 68.2 kg (150 lb 6.4 oz) 07/18/20 66.5 kg (146 lb 9.6 oz) Physical Exam: General Appearance: appears stated age, no distress Eyes: conjunctivae and lids normal, pupils are equal and round Teeth/Gums/Palate: dentition unremarkable, no lesions Lips & Oral Mucosa: no pallor or cyanosis Neck Veins: JVP ~10cm, HJR positive Respiratory Effort: breathing comfortably, no respiratory distress Auscultation/Percussion: lungs clear but diminished to auscultation, no rales or rhonchi, no wheezing Cardiac Rhythm: regular rhythm and normal rate Cardiac Auscultation: S1, S2 present but clear splitting not heard, no rub, no S 3 gallop, no S4 gallop Murmurs: 2/6 systolic murmur Radial Arteries: normal symmetric radial pulses Pedal Pulses: normal symmetric pedal pulses Lower Extremity Edema: no lower extremity edema Peripheral Circulation: distal upper and [...] diff Lab Results Component Value Date/Time WBC 13.8 (H) 11/07/2020 03:53 AM RBC 2.32 (L) 11/07/2020 03:53 AM HGB 7.1 (L) 11/07/2020 03:53 AM HCT 21.3 (L) 11/07/2020 03:53 AM MCV 91.9 11/07/2020 03:53 AM MCH 30.6 11/07/2020 03:53 AM MCHC 33.3 11/07/2020 03:53 AM RDW 18.3 (H) 11/07/2020 03:53 AM PLTCT 216 11/07/2020 03:53 AM MPV 6.6 (L) 11/07/2020 03:53 AM Lab Results Component Value Date/Time NEUT 83 (H) 11/07/2020 03:53 AM ANC 11.47 (H) 11/07/2020 03:53 AM LYMA 6 (L) 11/07/2020 03:53 AM ALC 0.86 (L) 11/07/2020 03:53 AM TINY 8 11/07/2020 03:53 AM AMC 1.14 (H) 11/07/2020 03:53 AM EOSA 2 11/07/2020 03:53 AM AEC 0.24 11/07/2020 03:53 AM BASA 1 11/07/2020 03:53 AM ABC 0.08 11/07/2020 03:53 AM Chemistry Lab Results Component Value Date/Time NA 132 (L) 11/07/2020 05:24 AM K 4.1 11/07/2020 05:24 AM CL 101 11/07/2020 05:24 AM CO2 23 11/07/2020 05:24 AM GAP 8 11/07/2020 05:24 AM BUN 22 11/07/2020 05:24 AM CR 1.35 (H) 11/07/2020 05:24 AM GLU 97 11/07/2020 05:24 AM GLU 143 (H) 07/28/2020 09:45 AM Lab Results Component Value Date/Time CA 7.7 (L) 11/07/2020 05:24 AM PO4 2.7 11/07/2020 05:24 AM ALBUMIN 2.5 (L) 11/07/2020 05:24 AM TOTPROT 4.6 (L) 11/07/2020 05:24 AM ALKPHOS 58 11/07/2020 05:24 AM AST 37 11/07/2020 05:24 AM ALT 19 11/07/2020 05:24 AM TOTBILI 1.1 11/07/2020 05:24 AM GFR 40 (L) 11/07/2020 05:24 AM GFRAA 49 (L) 11/07/2020 05:24 AM Renal Function Lab Results Component Value Date/Time NA 132 (L) 11/07/2020 05:24 AM K 4.1 11/07/2020 05:24 AM CL 101 11/07/2020 05:24 AM CO2 23 11/07/2020 05:24 AM GAP 8 11/07/2020 05:24 AM BUN 22 11/07/2020 05:24 AM BUN 19 11/06/2020 08:26 AM BUN 20 11/06/2020 03:28 AM Lab Results Component Value Date/Time CR 1.35 (H) 11/07/2020 05:24 AM CR 1.14 (H) 11/06/2020 08:26 AM CR 1.33 (H) 11/06/2020 03:28 AM GLU 97 11/07/2020 05:24 AM GLU 143 (H) 07/28/2020 09:45 AM CA 7.7 (L) 11/07/2020 05:24 AM PO4 2.7 11/07/2020 05:24 AM ALBUMIN 2.5 (L) 11/07/2020 05:24 AM Lipid Profile INR No results found for: CHOL, TRIG, HDL, LDL, VLDL, NONHDLCHOL, CHOLHDLC Lab Results Component Value Date INR 1.5 (H) 11/07/2020 INR 2.4 11/02/2020 Chest X-Ray 11/04: 1. Mild cardiomegaly with pulmonary venous congestion and indistinct pulmonary vasculature suggesting pulmonary edema. 2. Small pleural effusions, greater on the right, with bibasilar atelectasis. Tele/ECG: SR - ST Echocardiogram Details: Echo Results (Last 3 results in the past 3 years) Echo EF LVIDD LA Size IVS LVPW Rest PAP (10/21/20) 60 (10/21/20) 4.46 (10/21/20) 5.96 (10/21/20) 1.21 (10/21/20) 1.16 (10/21/20) 79 (05/22/20) 60 (05/22/20) 4.31 (05/22/20) 6.56 (05/22/20) 1.21 (05/22/20) 1.30 (05/22/20) 64 Echo 10/21: 1. Normal left ventricular size. Mild concentric [...] mmHg. 9. Markedly elevated central venous pressure. Associated attestation - Shanell Ybarra DO - 11/07/2020 3:44 PM CDT Cardiology Staff Physician Attestation Reason for consult: heart failure Zaria Paulson is a 60 y.o. female with PMH of hypertension, hyperlipidemia, cirrhosis of liver, recurrent GI bleed, multiple prior sternotomies for aortic valve disease with current mechanical aortic valve in situ, chronic anticoagulat ion who presented again with GI bleed. Patient was doing Lovenox injections at home when she noticed bruising and significant drop in her hemoglobin. Patient reports feeling okay overall. She continues to be tired. Denies any nausea or vomiting. She did undergo coiling of her inferior epigastric artery. Her INR w as 2.2 on arrival. Patient's past medical history, past surgical history, social history, family hi story, allergies, home medications, review of symptoms was performed in detail. Please see details above in a note. Vitals: 11/07/20 1440 BP: 103/60 Pulse: 106 Temp: 36.8 C (98.3 F) SpO2: 98% HEENT:NCAT, atraumatic, no RENEE Neck:JVP 16 cm +1 edema of lower extremity Heart: 4 out of 6 systolic ejection murmur, mechanical click Lungs:Decreased breath sounds bilaterally Abdomen is soft and nontender Skin: Warm to touch Please see above note which was reviewed for more details 14 point ROS was positive for shortness of breath, bloating, lower extremity rubi ma and bleeding otherwise the 14 point ROS was negative Recent labs, radiology and other diagnostics studies were reviewed. Sodium 132 potassium 4.1 BUN 22 creatinine 1.4 INR 1.5 hemoglobin 7.1 platelets 216 My impression is status post mechanical aortic valve, biventricular failure, pul monary hypertension likely group 2, recurrent GI bleed, chronic anticoagulation Plan: Patient continues to be volume overloaded. We would recommend starting Bu tootie 4 mg p.o. twice daily. Additionally once her bleeding subsides and lesion c orrected by GI we would recommend resumption of warfarin for goal INR 1.6-2. If she has bleeding at this lower goal we will recommend discontinuing her anticoa gulation completely. We did discuss risk of holding anticoagulation but risk of continuing is even higher given recurrent life-threatening bleeds. I have personally interviewed and examined the patient, have reviewed the medica l record & all pertinent medical documentation including the HPI, physical exam, & impression, and jointly formulated the treatment plan as outlined by the nurse practitioner The Complexity of medical decision making is [...] with my edits as outlined below. Staff coal handling supervisor: Shanell Ybarra DO * Meliza Almaguer MD - 11/05/2020 8:16 AM CDT Associated Order(s): CONSULT INTERVENTIONAL RADIOLOGY PHYSICIAN Interventional Radiology Brief Consult Note 60yo F with a PMH of cirrhosis from unclear etiology (possible chemo-induced), n on-ischemic cardiomyopathy, chronic heart failure with preserved ejection fracti on, mechanical aortic valve on warfarin, paroxysmal atrial fibrillation, and rem ote hx of lymphoma who presented from OSH for abdominal pain. 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 Baseline Hg 8.0, baseline BP 90s/50s, pulse 100. Patien t at baseline on admission. INR 2.5, warfarin being reversed with Vitamin K and held at this time. CT abdomen pelvis from outside hospital demonstrated rectus abdominus and extra- peritoneal hematoma, per staff review. IR consulted for possible embolization. Case and imaging reviewed with Dr. Luci valenzuela. As patient is at baseline, hemodynamically stable, Warfarin is being held and reversed, will monitor at this time. Continue serial CBC and INR. If patient be comes unstable or Hg drops, will re-evaluate with possible intervention. Plan wa s discussed with Dr. Blackmon. Meliza Almaguer MD Thank you for allowing us to participate in the care of this patient. Please krupa l with questions or concerns. If calling after hours or over the weekend please page the IR resident office coordinator receptionist @ . documented in this encounter Miscellaneous Notes * Case Mgmt DC Plan - Delia Khan RN - 11/15/2020 2:27 PM CDT Case Management Progress Note NAME:Zaria Paulson : AGE: 60 y.o. ADMISSION DATE: 11/04/2020 DAYS ADMITTED: LOS: 11 days Todays Date: 11/15/2020 Plan Patient anticipated to discharge home tomorrow with [facility]. Interventions Support Support: Pt/Family Updates re:POC or DC Plan, Huddle/team update EMELIA reviewed EMR. EMELIA attended and participated in Med 3 huddle. Patient anticipated to be stable for discharge tomorrow. Patient will discharge home with [facility]. Info or Referral Information or Referral to Community Resources: No Needs Identified Discharge Planning Discharge Planning: Home Health NCM called [facility] ( ; ) and pr ovided an update on discharge plan of care. NCM to fax signed orders and DC AVS upon discharge. Will continue to follow. Medication Needs Medication Needs: No Needs Identified Financial Financial: No Needs Identified Legal Legal: No Needs Identified Other Other/None: No needs identified Disposition Expected Discharge Date 11/16/2020 Transportation Does the Patient Need Case Management to Arrange Discharge Transport? (ex: faci lity, ambulance, wheelchair/stretcher, Medicaid, cab, other): No Will the Patient Use Family Transport?: Yes Does the patient need discharge transport arranged?: No Transportation Name, Phone and Availability #1: [facility] [phone] Does the patient use Medicaid Transportation?: No Next Level of Care (Acute Psych discharges only) Discharge Disposition Selected Continued Care - Admitted Since 11/04/2020 [facility] Coordination complete. Service Provider Selected Services Address Phone Fax Patient Preferred [facility] [address] [place] [address] [place] [address] JOVANNY Berger, RN [facility] Nurse [employer] Transporter [phone] and available on Voalte * Care Plan - Jennifer Simmons RN - 11/13/2020 5:28 PM CDT Problem: Discharge Planning Goal: Participation in plan of care Outcome: Goal Ongoing Goal: Knowledge regarding plan of care Outcome: Goal Ongoing Goal: Prepared for discharge Outcome: Goal Ongoing Problem: Infection, Risk of Goal: Absence of infection Outcome: Goal Ongoing Goal: Knowledge of Infection Control Procedures Outcome: Goal Ongoing Problem: Pain Goal: Management of pain Outcome: Goal Ongoing Goal: Knowledge of pain management Outcome: Goal Ongoing Goal: Progress Toward Pain Management Goals Outcome: Goal Ongoing Problem: Moderate Fall Risk Goal: Moderate Fall Risk Outcome: Goal Ongoing Problem: Self-Care Deficit Goal: Maximize ADL functioning Outcome: Goal Ongoing Problem: Infection, Risk of, Urinary Catheter-Associated Urinary Tract Infection Goal: Absence of urinary catheter-associated infection Outcome: Goal Ongoing Problem: Nutrition Deficit Goal: Adequate nutritional intake Outcome: Goal Ongoing * Care Plan - Jennifer Simmons RN - 11/11/2020 5:41 PM CDT Problem: Discharge Planning Goal: Participation in plan of care Outcome: Goal Ongoing Goal: Knowledge regarding plan of care Outcome: Goal Ongoing Goal: Prepared for discharge Outcome: Goal Ongoing Problem: Infection, Risk of Goal: Absence of infection Outcome: Goal Ongoing Goal: Knowledge of Infection Control Procedures Outcome: Goal Ongoing Problem: Pain Goal: Management of pain Outcome: Goal Ongoing Goal: Knowledge of pain management Outcome: Goal Ongoing Goal: Progress Toward Pain Management Goals Outcome: Goal Ongoing Problem: Moderate Fall Risk Goal: Moderate Fall Risk Outcome: Goal Ongoing Problem: Self-Care Deficit Goal: Maximize ADL functioning Outcome: Goal Ongoing Problem: Infection, Risk of, Urinary Catheter-Associated Urinary Tract Infection Goal: Absence of urinary catheter-associated infection Outcome: Goal Ongoing Problem: Nutrition Deficit Goal: Adequate nutritional intake Outcome: Goal Ongoing * Care Plan - Ale Cazares RN - 11/11/2020 6:36 AM CDT Problem: Discharge Planning Goal: Participation in plan of care Outcome: Goal Ongoing Goal: Knowledge regarding plan of care Outcome: Goal Ongoing Goal: Prepared for discharge Outcome: Goal Ongoing Problem: Infection, Risk of Goal: Absence of infection Outcome: Goal Ongoing Goal: Knowledge of Infection Control Procedures Outcome: Goal Ongoing Problem: Pain Goal: Management of pain Outcome: Goal Ongoing Goal: Knowledge of pain management Outcome: Goal Ongoing Goal: Progress Toward Pain Management Goals Outcome: Goal Ongoing Problem: Moderate Fall Risk Goal: Moderate Fall Risk Outcome: Goal Ongoing Problem: Self-Care Deficit Goal: Maximize ADL functioning Outcome: Goal Ongoing Problem: Infection, Risk of, Urinary Catheter-Associated Urinary Tract Infection Goal: Absence of urinary catheter-associated infection Outcome: Goal Ongoing Problem: Nutrition Deficit Goal: Adequate nutritional intake Outcome: Goal Ongoing * Case Mgmt DC Plan - Lacy Sims BSN - 11/09/2020 11:18 AM CDT Case Management Progress Note NAME:Zaria Paulson : AGE: 60 y.o. ADMISSION DATE: 11/04/2020 DAYS ADMITTED: LOS: 5 days Todays Date: 11/09/2020 Plan: Discharge planning ongoing. Patient expressed interest in obtaining HH ser vices per PT/OT recommendations upon DC. Interventions Support Support: Pt/Family Updates re:POC or DC Plan, Patient Education NCM reviewed EMR. NCM attended and participated in [facility] 3 huddle. NCM spoke with patient and to review PT/OT recommendations for home w ith intermittent assistance and home health. Patient confirms is availab le in home to assist as needed. She would like to pursue HH referrals with [facility] providers in [place]. Reviewed available agencies with patient, plan to pursue referrals to [facility] and [facility]. Reviewed recommendation for shower chair in home. Patient shares that he is able to obtain shower chair at local retailer. NCM will continue to follow for discharge planning/needs. Info or Referral Information or Referral to Community Resources: No Needs Identified Discharge Planning Discharge Planning: Home Health NCM spoke with Stanton from patient PCP Garfield Gray MD office to confirm pro vider is able to follow HH orders upon DC. DANIELAM placed Home Health referrals placed to the following agencies in [place], [place]: [facility] (ph. [phone]), [facility] (ph. [phone]). EMELIA spoke with Audrey from [facility]- patient approved for nursing, PT, OT ser vices starting 24-48 hours following DC. Anticipated DC early next week. DANIELA to provide update to Audrey early next week regarding anticipated DC. NCM to fax HH orders and AVS upon DC. Medication Needs Medication Needs: No Needs Identified Financial Financial: No Needs Identified Legal Legal: No Needs Identified Other Other/None: No needs identified Disposition Expected Discharge Date 11/13/2020 Transportation Does the Patient Need Case Management to Arrange Discharge Transport? (ex: faci lity, ambulance, wheelchair/stretcher, Medicaid, cab, other): No Will the Patient Use Family Transport?: Yes Does the patient need discharge transport arranged?: No Transportation Name, Phone and Availability #1: Catarino [phone] Does the patient use Medicaid Transportation?: No Next Level of Care (Acute Psych discharges only) Discharge Disposition Selected Continued Care - Admitted Since 11/04/2020 No services have been selected for the patient. JOVANNY Crum, RN Nurse Clay Transporter Ph. [phone] Available on Voalte * Care Plan - Kavita Velasquez RN - 11/07/2020 4:34 PM CDT Problem: Discharge Planning Goal: Participation in plan of care Outcome: Goal Ongoing Goal: Knowledge regarding plan of care Outcome: Goal Ongoing Goal: Prepared for discharge Outcome: Goal Ongoing Problem: Infection, Risk of Goal: Absence of infection Outcome: Goal Ongoing Goal: Knowledge of Infection Control Procedures Outcome: Goal Ongoing Problem: Pain Goal: Management of pain Outcome: Goal Ongoing Goal: Knowledge of pain management Outcome: Goal Ongoing Goal: Progress Toward Pain Management Goals Outcome: Goal Ongoing Problem: Moderate Fall Risk Goal: Moderate Fall Risk Outcome: Goal Ongoing * Care Plan - Summer Roth RN - 11/07/2020 7:42 AM CDT Problem: Discharge Planning Goal: Participation in plan of care Outcome: Goal Ongoing Goal: Knowledge regarding plan of care Outcome: Goal Ongoing Goal: Prepared for discharge Outcome: Goal Ongoing Problem: Infection, Risk of Goal: Absence of infection Outcome: Goal Ongoing Goal: Knowledge of Infection Control Procedures Outcome: Goal Ongoing Problem: Moderate Fall Risk Goal: Moderate Fall Risk Outcome: Goal Ongoing * Case Mgmt DC Plan - Lacy Sims BSN - 11/06/2020 9:46 AM CDT Case Management Admission Assessment NAME:Zaria Paulson :[birth year] AGE: 60 y.o. ADMISSION DATE: 11/04/2020 DAYS ADMITTED: LOS: 2 days Todays Date: 11/06/2020 Source of Information: Patient and EMR Per EMR review: "Ms. Paulson is a 60yo F with a PMH of cirrhosis from unclear jeanne ology, non-ischemic cardiomyopathy, chronic heart failure with preserved ejectio n fraction, mechanical aortic valve on warfarin, paroxysmal atrial fibrillation, and remote hx of lymphoma who presented via transfer from [facility] with [facility] for a left rectus abdominal muscle hematoma and active extravasation." NCM reviewed EMR. NCM attended and participated in [facility] 3 huddle. NCM spoke with patient to complete initial assessment. NCM provided contact i nformation and explanation of NCM role. NCM provided opportunity for questions a nd discussion. Patient/family encouraged to contact Case Management team with qu estions and concerns during hospitalization and until patient is able to transit ion back to the patient's primary care physician. Demographics verified with patient. Patient shares that she lives with her , Catarino, in a one-level home in [place], [place]. Patient plans to return home upon discharge . Catarino will provide t ransportation. Patient is indepenedent in all self -care and ADL's. , Catarino, able to pr ovide assistance as needed and assist with transportation. Patient confirms that Warfarin is managed by Riley Hopson MD. Denies a history of the following: DME/SNF/Rehab/LTACH. Confirms PCP is Garfield Gray MD. Plan: Start heparin gtt. due to patient's mechanical aortic valv. CheckIN R, CBC Q6h. Consult IR for any sign of increased bleeding.Arterial embolization with IR on 11/06/2020 NCM will continue to follow for discharge planning/needs. Plan Plan: Case Management Assessment, Assist PRN with SW/NCM Services Patient Address/Phone [address] [address] (home) Emergency Contact Extended Emergency Contact Information Primary Emergency Contact: Catarino Westfall Mobile Relation: Significant Other Secondary Emergency Contact: Blair Chambers Mobile Relation: Son Transportation Does the Patient Need Case Management to Arrange Discharge Transport? (ex: facil ity, ambulance, wheelchair/stretcher, Medicaid, cab, other): No Will the Patient Use Family Transport?: Yes Does the patient need discharge transport arranged?: No Transportation Name, Phone and Availability #1: Catarino [phone] Does the patient use Medicaid Transportation?: No Expected Discharge Date 11/07/2020 Living Situation Prior to Admission Living Arrangements Type of Residence: Home, independent Living Arrangements: Spouse/significant other (Catarino) How many levels in the residence?: 1 Can patient live on one level if needed?: N/A Does residence have entry and/or side stairs?: Yes (1 RACH) Assistance needed prior to admit or anticipated on discharge: No Who provides assistance or could if needed?: spouse, Catarino Are they in good health?: Yes Can support system provide / care if needed?: Maybe Level of Function Prior level of function: Independent Cognitive Abilities Cognitive Abilities: Alert and Oriented, Participates in decision making, Recogn izes impact of health condition on lifestyle, Engages in problem solving and delmar nning Financial Resources Coverage Primary Insurance: Medicare Secondary Insurance: Medicaid ([place] Medicaid) Additional Coverage: RX (no concerns with prescription affordability) Source of Income Source Of Income: Other custodial income, SSDI Financial Assistance Needed? No Psychosocial Needs Mental Health Mental Health History: No Substance Use History Substance Use History Screen: Yes Other NA Current/Previous Services PCP Isaac, Garfield, , Pharmacy [address] [facility] [address] [facility] [address] Durable Medical Equipment Durable Medical Equipment at home: None Home Health Receiving home health: In the past Agency name: unable to recall Hemodialysis or Peritoneal Dialysis Undergoing hemodialysis or peritoneal dialysis: No Tube/Enteral Feeds Infusion Receive infusions: In the past Where: home Infusion company: unable to recall Private Duty Private duty help used: No Home and Community Based Services Home and community based services: No Wicho White Wicho White: N/A Hospice Hospice: No Outpatient Therapy PT: No OT: No ACETYLENE PLANT OPERATOR: No Halfway Facility/Snf SNF: No NH: No Inpatient Rehab IPR: No Long-Term Acute Care Hospital LTACH: No Acute Hospital Stay Acute Hospital Stay: In the past Was patient's stay within the last 30 days?: Yes Name of Hospital: [facility] When did patient receive care?: 10/20/20 Readmission Code Group: 9. Unrelated Readmision Lacy Sims, BSN, RN Nurse Clay Transporter Ph. [phone] Available on Voalte * Response Teams - Jeanette Garibay RN - 11/06/2020 6:30 AM CDT Pt remains in IR procedure. Unable to complete CUT OUT PRESS OPERATOR follow up at this time. Jeanette Garibay RN * Procedures (Immed Post or Bedside) - Meliza Almaguer MD - 11/06/2020 5:28 AM CDT Immediate Post Procedure Note Date: 11/06/2020 Attending Physician: Dr. Greene Performing Provider: Meliza Almaguer MD Consent: Consent obtained from patient. Time out performed: Consent obtained, correct patient verified, correct procedur e verified, correct site verified, patient marked as necessary. Pre/Post Procedure Diagnosis: Mesenteric angiogram Indications: Rectus sheath hematoma and extra-peritoneal hematoma Procedure(s): Mesenteric angiogram Findings: Free contrast extravasation with successful coiling of the inferior e pigastric arteries Estimated Blood Loss: Minimal Specimen(s) Removed/Disposition: None Complications: None Patient Tolerated Procedure: Well Post-Procedure Condition: stable Meliza Almaguer MD * Response Teams - Taisha Jorgensen RN - 11/06/2020 3:33 AM CDT Rapid Response Team Progress Note Date: 11/06/2020 Time: 3:33 AM Patient: Zaria Paulson Attending: Derrick Meza MD Service: Med [id number] Admission Date: 11/04/2020 LOS: 2 days A Code/Rapid Response Timeline Event Report has been created for this patient on 11/06 at 0253 CUT OUT PRESS OPERATOR called for hypotension with blood transfusion for Hemoglobin 6.4 Due to hypo tensive episode with blood, concern for transfusion reaction--labs sent. NS bolu s given with improvement of blood pressure. Continues to be hypotensive, additio nal PRBC given (discussed with blood bank). Patient transferred to IR. Dr. Eaton was present for the duration of the rapid response. Taisha Jorgensen RN * Care Plan - Priscilla Chan RN - 11/05/2020 3:29 AM CDT Problem: Discharge Planning Goal: Participation in plan of care Outcome: Goal Ongoing Goal: Knowledge regarding plan of care Outcome: Goal Ongoing Goal: Prepared for discharge Outcome: Goal Ongoing Problem: Infection, Risk of Goal: Absence of infection Outcome: Goal Ongoing Goal: Knowledge of Infection Control Procedures Outcome: Goal Ongoing Problem: Pain Goal: Management of pain Outcome: Goal Ongoing Goal: Knowledge of pain management Outcome: Goal Ongoing Goal: Progress Toward Pain Management Goals Outcome: Goal Ongoing * Advanced Care Planning/Resuscitation Status - Homar Blackmon DO - 11/04/2020 8:59 PM CDT Advance Care Planning/Resuscitation Status Conversation Individuals present for advance care planning conversation: resident/fellow phys ician Pertinent details of conversation (including direct quotes from patient or surro gate): Full code Outcome of conversation: Full Code Documents completed as a result of this conversation: None Other documents present, which outline patient/surrogate wishes: None Attestation? N/A documented in this encounter Plan of Treatment Date/Time Name Type Priority Associated Diag noses 11/06/2020 10:49 AM CDT TRANSFUSE RBC'S Blood Bank Routine 11/06/2020 4:00 PM CDT TRANSFUSE RBC'S Blood Bank Routine 11/07/2020 11:13 AM CDT TRANSFUSE RBC'S Blood Bank Routine 11/07/2020 11:13 AM CDT TRANSFUSE RBC'S Blood Bank Routine documented as of this encounter Goals Goal Patient Associated Recent Progress Patient-Stat Aut hor Goal Type Problems ed? [facility] On track (10/23/2020 Yes Sheldon, 1:06 PM CDT) CHRYSTAL Singh documented as of this encounter Procedures Comments Procedure Name Priority Date/Time Associated Diag nosis HC PT(INR) Routine 11/15/2020 6:10 AM CDT HC CBC W/ AUTOMATED DIFF Routine 11/15/2020 6:10 AM CDT HC PHOSPHOROUS, SERUM Routine 11/15/2020 6:10 AM CDT HC COMPREHENSIVE Routine 11/15/2020 METABOLIC PANEL 6:10 AM CDT CULTURE-URINE Routine 11/14/2020 W/SENSITIVITY 5:35 PM CDT HC PT(INR) Routine 11/14/2020 5:17 AM CDT HC CBC W/ AUTOMATED DIFF Routine 11/14/2020 5:17 AM CDT HC PHOSPHOROUS, SERUM Routine 11/14/2020 5:17 AM CDT HC COMPREHENSIVE Routine 11/14/2020 METABOLIC PANEL 5:17 AM CDT HC HEMOGLOBIN Routine 11/14/2020 12:27 AM CDT HC PT(INR) Routine 11/13/2020 7:12 AM CDT HC CBC W/ AUTOMATED DIFF Routine 11/13/2020 7:12 AM CDT HC PHOSPHOROUS, SERUM Routine 11/13/2020 7:12 AM CDT HC COMPREHENSIVE Routine 11/13/2020 METABOLIC PANEL 7:12 AM CDT HC PT(INR) Routine 11/12/2020 8:24 AM CDT HC CBC W/ AUTOMATED DIFF Routine 11/12/2020 8:24 AM CDT HC PHOSPHOROUS, SERUM Routine 11/12/2020 8:24 AM CDT HC COMPREHENSIVE Routine 11/12/2020 METABOLIC PANEL 8:24 AM CDT HC PT(INR) Routine 11/11/2020 6:05 AM CDT HC CBC W/ AUTOMATED DIFF Routine 11/11/2020 6:05 AM CDT HC PHOSPHOROUS, SERUM Routine 11/11/2020 6:05 AM CDT HC COMPREHENSIVE Routine 11/11/2020 METABOLIC PANEL 6:05 AM CDT HC PT(INR) Routine 11/10/2020 10:02 AM CDT HC CBC,AUTOMATED Routine 11/10/2020 10:02 AM CDT HC PHOSPHOROUS, SERUM Routine 11/10/2020 10:02 AM CDT HC COMPREHENSIVE Routine 11/10/2020 METABOLIC PANEL 10:02 AM CDT HC CBC,AUTOMATED Routine 11/09/2020 9:42 PM CDT CBC Routine 11/09/2020 1:27 PM CDT HC HAPTOGLOBIN;QUANT Routine 11/09/2020 9:45 AM CDT HC PT(INR) Routine 11/09/2020 5:43 AM CDT HC CBC,AUTOMATED 11/09/2020 5:43 AM CDT HC PHOSPHOROUS, SERUM Routine 11/09/2020 5:43 AM CDT HC LD(LDH;LACTIC Add on 11/09/2020 DEHYDROGENASE) 5:43 AM CDT HC BILIRUBIN DIRECT Add on 11/09/2020 5:43 AM CDT HC COMPREHENSIVE Routine 11/09/2020 METABOLIC PANEL 5:43 AM CDT CBC Routine 11/08/2020 9:28 PM CDT [place] BLOOD SMEAR PERIPHERAL Routine 11/08/2020 INTERP PHYS W/WRIT REPORT 5:46 PM CDT HC FIBRINOGEN Routine 11/08/2020 5:[address] ABD/PELV WO CONTRAST Routine 11/08/2020 5:[address] LOWER EXTREM WO CONT Routine 11/08/2020 BILAT 5:28 PM CDT HC CBC,AUTOMATED 91 Routine 11/08/2020 3:03 PM CDT HC CBC W/ AUTOMATED DIFF Routine 11/08/2020 10:04 AM CDT HC PT(INR) Routine 11/08/2020 2:32 AM CDT HC CBC W/ AUTOMATED DIFF Routine 11/08/2020 2:32 AM CDT HC PHOSPHOROUS, SERUM Routine 11/08/2020 2:32 AM CDT HC COMPREHENSIVE Routine 11/08/2020 METABOLIC PANEL 2:32 AM CDT HC CBC W/ AUTOMATED DIFF Routine 11/07/2020 6:50 PM CDT TRANSFUSE RBC'S Routine 11/07/2020 11:13 AM CDT HC CBC W/ AUTOMATED DIFF Routine 11/07/2020 9:14 AM CDT ECG 12-LEAD Routine 11/07/2020 7:12 AM CDT HC PT(INR) Routine 11/07/2020 5:24 AM CDT HC PHOSPHOROUS, SERUM Routine 11/07/2020 5:24 AM CDT HC COMPREHENSIVE Routine 11/07/2020 METABOLIC PANEL 5:24 AM CDT HC CBC W/ AUTOMATED DIFF Routine 11/07/2020 3:53 AM CDT HC CBC W/ AUTOMATED DIFF Routine 11/06/2020 9:30 PM CDT TRANSFUSE RBC'S Routine 11/06/2020 7:36 PM CDT HC HEMOGLOBIN STAT 11/06/2020 3:20 PM CDT URINE HGB FOR TRANFUSION STAT 11/06/2020 REACTION 9:05 AM CDT URINALYSIS, MICROSCOPIC STAT 11/06/2020 9:05 AM CDT HC URINALYSIS, AUTO W STAT 11/06/2020 MICRO 9:05 AM CDT HC CBC W/ AUTOMATED DIFF Routine 11/06/2020 8:48 AM CDT HC PT(INR) Routine 11/06/2020 8:26 AM CDT HC PHOSPHOROUS, SERUM Routine 11/06/2020 8:26 AM CDT HC COMPREHENSIVE Routine 11/06/2020 METABOLIC PANEL 8:26 AM CDT POC GLUCOSE 11/06/2020 7:43 AM CDT IR MESENTERIC ARTERIOGRAM Routine 11/06/2020 DIAGNOSTIC 5:50 AM CDT TRANSFUSE RBC'S Routine 11/06/2020 4:50 AM CDT HC TEG W KAOLIN R Routine 11/06/2020 ACTIVATED CLOTTING TIME 3:49 AM CDT HC PTT(APTT) Routine 11/06/2020 3:49 AM CDT HC PT(INR) Routine 11/06/2020 3:49 AM CDT TRANSFUSION REACTION STAT 11/06/2020 EVALUATION 3:28 AM CDT CBC Routine 11/06/2020 3:28 AM CDT HC B-TYPE NATRIURETIC STAT 11/06/2020 PEPTIDE 3:28 AM CDT HC BASIC METABOLIC PANEL Routine 11/06/2020 3:28 AM CDT HC POC [...] DIFF Routine 11/05/2020 11:18 AM CDT HC PT(INR) Routine 11/05/2020 5:46 AM CDT HC CBC W/ AUTOMATED DIFF Routine 11/05/2020 5:46 AM CDT HC PHOSPHOROUS, SERUM Routine 11/05/2020 5:46 AM CDT HC LACTIC ACID(LACTATE) Routine 11/05/2020 5:46 AM CDT HC COMPREHENSIVE Routine 11/05/2020 METABOLIC PANEL 5:46 AM CDT CHEST SINGLE VIEW Routine 11/04/2020 9:11 PM CDT COVID-19 (SARS-COV-2) PCR Routine 11/04/2020 8:41 PM CDT HC *FREE T4 (REFLEX) STAT 11/04/2020 8:40 PM CDT HC TSH SCREEN Routine 11/04/2020 8:40 PM CDT HC PT(INR) STAT 11/04/2020 8:40 PM CDT HC CBC W/ AUTOMATED DIFF STAT 11/04/2020 8:40 PM CDT HC ABO GROUP STAT 11/04/2020 8:40 PM CDT HC B-TYPE NATRIURETIC Routine 11/04/2020 PEPTIDE 8:40 PM CDT HC COMPREHENSIVE STAT 11/04/2020 METABOLIC PANEL 8:40 PM CDT ECG 12-LEAD Routine 11/04/2020 7:35 PM CDT TELEMETRY STRIPS-SCAN 11/04/2020 12:00 AM CDT [...] AM CDT ECG-SCAN 11/04/2020 12:00 AM CDT ECG-SCAN 11/04/2020 12:00 AM CDT documented in this encounter Results * PHOSPHORUS (11/15/2020 6:10 AM CDT) [facility] Phosphorus 2.8 2.0 - 4.5 MG/DL [facility] Specimen Blood Performing Organization Address City/State/ZIP Code P shane Number [facility] [address] [place] [address] * COMPREHENSIVE METABOLIC PANEL (11/15/2020 6:10 AM CDT) Pathologist [facility] Sodium 132 (L) 137 - 147 MMOL/L [facility] Potassium 3.7 3.5 - 5.1 MMOL/L [facility] Chloride 99 98 - 110 MMOL/L [facility] Glucose 75 70 - 100 MG/DL [facility] Blood Urea 16 7 - 25 MG/DL [facility] Nitrogen Creatinine 1.07 (H) 0.4 - 1.00 MG/DL [facility] Calcium 8.0 (L) 8.5 - 10.6 MG/DL [facility] Total Protein 5.3 (L) 6.0 - 8.0 G/DL [facility] Total Bilirubin 0.9 0.3 - 1.2 MG/DL [facility] Albumin 2.7 (L) 3.5 - 5.0 G/DL [facility] Alk Phosphatase 78 25 - 110 U/L [facility] AST (SGOT) 22 7 - 40 U/L [facility] CO2 26 21 - 30 MMOL/L [facility] ALT (SGPT) 11 7 - 56 U/L [facility] Anion Gap 7 3 - 12 [facility] eGFR Non 53 (L) >60 mL/min [facility] Comment: [place] The eGFR is not validated f or use in drug dosing adjustments. Continue to use estimated creatinine clearance per dosing reference text. Please contact the Clinical Pharmacist for questions. eGFR >60 >60 mL/min [facility] [place] Comment: The eGFR is not validated for use in drug dosing adjustments. Continue to use estimated creatinine clearance per dosing reference text. Please contact the Clinical Pharmacist for questions. Specimen Blood Performing Organization Address City/State/ZIP Code P shane Number [facility] [address] [place] [address] * CBC AND DIFF (11/15/2020 6:10 AM CDT) Pathologist [facility] White Blood 6.2 4.5 - 11.0 K/UL [facility] Cells RBC 2.61 (L) 4.0 - 5.0 M/UL [facility] Hemoglobin 8.2 (L) 12.0 - 15.0 GM/DL [facility] Hematocrit 24.0 (L) 36 - 45 % [facility] MCV 91.9 80 - 100 FL [facility] MCH 31.4 26 - 34 PG [facility] MCHC 34.1 32.0 - 36.0 G/DL [facility] RDW 18.6 (H) 11 - 15 % [facility] Platelet Count 356 150 - 400 K/UL [facility] MPV 6.5 (L) 7 - 11 FL [facility] Neutrophils 80 (H) 41 - 77 % [facility] Lymphocytes 6 (L) 24 - 44 % [facility] Monocytes 9 4 - 12 % [facility] Eosinophils 4 0 - 5 % [facility] Basophils 1 0 - 2 % [facility] Absolute 4.94 1.8 - 7.0 K/UL [facility] Neutrophil Count Absolute Lymph 0.35 (L) 1.0 - 4.8 K/UL [facility] Count Absolute 0.56 0 - 0.80 K/UL [facility] Monocyte Count Absolute 0.26 0 - 0.45 K/UL [facility] Eosinophil Count Absolute 0.07 0 - 0.20 K/UL [facility] Basophil Count Specimen Blood Performing Organization Address City/State/ZIP Code P shane Number [facility] [address] [place] [address] * PROTIME INR (PT) (11/15/2020 6:10 AM CDT) INR 1.6 (H) 0.8 - 1.2 MAIN LAB Specimen Blood Performing Organization Address City/[facility]/ZIP Code P shane Number [facility] [address] [place] [address] * CULTURE-URINE W/SENSITIVITY (11/14/2020 5:35 PM CDT) Battery Name URINE CULTURE [facility] Report Status FINAL 11/17/2020 [facility] Specimen URINE INDWELLING CATHETER [facility] Description Special NONE [facility] Requests Culture >100,000 CFU/ml [facility] ENTEROCOCCUS FAECIUM (A) Culture >100,000 CFU/ml [facility] ENTEROCOCCUS FAECALIS (A) Specimen Urine [...] <=1: Susceptible Enterococcus faecalis Performing Organization Address City/State/ZIP Code P shane Number [facility] [address] [place] [address] * CBC AND DIFF (11/14/2020 5:17 AM CDT) White Blood 6.0 4.5 - 11.0 K/UL [facility] Cells RBC 2.53 (L) 4.0 - 5.0 M/UL [facility] Hemoglobin 7.9 (L) 12.0 - 15.0 GM/DL [facility] Hematocrit 23.6 (L) 36 - 45 % [facility] MCV 93.2 80 - 100 FL [facility] MCH 31.1 26 - 34 PG [facility] MCHC 33.3 32.0 - 36.0 G/DL [facility] RDW 18.3 (H) 11 - 15 % [facility] Platelet Count 330 150 - 400 K/UL [facility] MPV 6.4 (L) 7 - 11 FL [facility] Neutrophils 79 (H) 41 - 77 % [facility] Lymphocytes 6 (L) 24 - 44 % [facility] Monocytes 10 4 - 12 % [facility] Eosinophils 4 0 - 5 % [facility] Basophils 1 0 - 2 % [facility] Absolute 4.77 1.8 - 7.0 K/UL [facility] Neutrophil Count Absolute Lymph 0.33 (L) 1.0 - 4.8 K/UL [facility] Count Absolute 0.58 0 - 0.80 K/UL [facility] Monocyte Count Absolute 0.25 0 - 0.45 K/UL [facility] Eosinophil Count Absolute 0.05 0 - 0.20 K/UL [facility] Basophil Count Specimen Blood Performing Organization Address City/State/ZIP Code P shane Number [facility] [address] [place] [address] * PHOSPHORUS (11/14/2020 5:17 AM CDT) Phosphorus 2.9 2.0 - 4.5 MG/DL [facility] Specimen Blood Performing Organization Address City/[facility]/ZIP Code P shane Number [facility] [address] [place] [address] * COMPREHENSIVE METABOLIC PANEL (11/14/2020 5:17 AM CDT) Sodium 134 (L) 137 - 147 MMOL/L [facility] Potassium 3.7 3.5 - 5.1 MMOL/L [facility] Chloride 100 98 - 110 MMOL/L [facility] Glucose 78 70 - 100 MG/DL [facility] Blood Urea 17 7 - 25 MG/DL [facility] Nitrogen Creatinine 1.10 (H) 0.4 - 1.00 MG/DL [facility] Calcium 8.2 (L) 8.5 - 10.6 MG/DL [facility] Total Protein 5.2 (L) 6.0 - 8.0 G/DL [facility] Total Bilirubin 1.0 0.3 - 1.2 MG/DL [facility] Albumin 2.7 (L) 3.5 - 5.0 G/DL [facility] Alk Phosphatase 73 25 - 110 U/L [facility] AST (SGOT) 21 7 - 40 U/L [facility] CO2 26 21 - 30 MMOL/L [facility] ALT (SGPT) 9 7 - 56 U/L [facility] Anion Gap 8 3 - 12 [facility] eGFR Non 51 (L) >60 mL/min [facility] Comment: [place] The eGFR is not validated f or use in drug dosing adjustments. Continue to use estimated creatinine clearance per dosing reference text. Please contact the Clinical Pharmacist for questions. eGFR >60 >60 mL/min [facility] [place] Comment: The eGFR is not validated for use in drug dosing adjustments. Continue to use estimated creatinine clearance per dosing reference text. Please contact the Clinical Pharmacist for questions. Specimen Blood Performing Organization Address City/State/ZIP Code P shane Number [facility] [address] [place] [address] * PROTIME INR (PT) (11/14/2020 5:17 AM CDT) INR 1.3 (H) 0.8 - 1.2 [facility] Specimen Blood Performing Organization Address City/[facility]/ZIP Code P shane Number [facility] [address] [place] [address] * HEMOGLOBIN & HEMATOCRIT (11/14/2020 12:27 AM CDT) Hemoglobin 8.0 (L) 12.0 - 15.0 GM/DL [facility] Hematocrit 23.7 (L) 36 - 45 % [facility] Specimen Blood Performing Organization Address City/[facility] Code P shane Number [facility] [address] [place] [address] * CBC AND DIFF (11/13/2020 7:12 AM CDT) White Blood 7.2 4.5 - 11.0 K/UL [facility] Cells RBC 2.53 (L) 4.0 - 5.0 M/UL [facility] Hemoglobin 8.0 (L) 12.0 - 15.0 GM/DL [facility] Hematocrit 23.5 (L) 36 - 45 % [facility] MCV 92.8 80 - 100 FL [facility] MCH 31.6 26 - 34 PG [facility] MCHC 34.0 32.0 - 36.0 G/DL [facility] RDW 18.6 (H) 11 - 15 % [facility] Platelet Count 330 150 - 400 K/UL [facility] MPV 6.2 (L) 7 - 11 FL [facility] Neutrophils 85 (H) 41 - 77 % [facility] Lymphocytes 4 (L) 24 - 44 % [facility] Monocytes 7 4 - 12 % [facility] Eosinophils 3 0 - 5 % [facility] Basophils 1 0 - 2 % [facility] Absolute 6.17 1.8 - 7.0 K/UL [facility] Neutrophil Count Absolute Lymph 0.28 (L) 1.0 - 4.8 K/UL [facility] Count Absolute 0.52 0 - 0.80 K/UL [facility] Monocyte Count Absolute 0.19 0 - 0.45 K/UL [facility] Eosinophil Count Absolute 0.05 0 - 0.20 K/UL [facility] Basophil Count Specimen Blood Performing Organization Address City/State/ZIP Code P shane Number [facility] [address] [place] [address] * PHOSPHORUS (11/13/2020 7:12 AM CDT) Phosphorus 3.0 2.0 - 4.5 MG/DL [facility] Specimen Blood Performing Organization Address City/[facility]/ZIP Code P shane Number [facility] [address] [place] [address] * COMPREHENSIVE METABOLIC PANEL (11/13/2020 7:12 AM CDT) Sodium 131 (L) 137 - 147 MMOL/L [facility] Potassium 3.4 (L) 3.5 - 5.1 MMOL/L [facility] Chloride 98 98 - 110 MMOL/L [facility] Glucose 78 70 - 100 MG/DL [facility] Blood Urea 18 7 - 25 MG/DL [facility] Nitrogen Creatinine 1.02 (H) 0.4 - 1.00 MG/DL [facility] Calcium 8.0 (L) 8.5 - 10.6 MG/DL [facility] Total Protein 5.3 (L) 6.0 - 8.0 G/DL [facility] Total Bilirubin 1.2 0.3 - 1.2 MG/DL [facility] Albumin 2.7 (L) 3.5 - 5.0 G/DL [facility] Alk Phosphatase 79 25 - 110 U/L [facility] AST (SGOT) 24 7 - 40 U/L [facility] CO2 25 21 - 30 MMOL/L [facility] ALT (SGPT) 11 7 - 56 U/L [facility] Anion Gap 8 3 - 12 [facility] eGFR Non 56 (L) >60 mL/min [facility] Comment: [place] The eGFR is not validated f or use in drug dosing adjustments. Continue to use estimated creatinine clearance per dosing reference text. Please contact the Clinical Pharmacist for questions. eGFR >60 >60 mL/min [facility] [place] Comment: The eGFR is not validated for use in drug dosing adjustments. Continue to use estimated creatinine clearance per dosing reference text. Please contact the Clinical Pharmacist for questions. Specimen Blood Performing Organization Address [facility]/ZIP Code P shane Number [facility] [address] [place] [address] * PROTIME INR (PT) (11/13/2020 7:12 AM CDT) INR 1.3 (H) 0.8 - 1.2 [facility] Specimen Blood Performing Organization Address City/[facility]/ZIP Code P shane Number [facility] [address] [place] [id number] * CBC AND DIFF (11/12/2020 8:24 AM CDT) White Blood 6.4 4.5 - 11.0 K/UL [facility] Cells RBC 2.53 (L) 4.0 - 5.0 M/UL [facility] Hemoglobin 8.2 (L) 12.0 - 15.0 GM/DL [facility] Hematocrit 23.5 (L) 36 - 45 % [facility] MCV 92.8 80 - 100 FL [facility] MCH 32.3 26 - 34 PG [facility] MCHC 34.8 32.0 - 36.0 G/DL [facility] RDW 18.3 (H) 11 - 15 % [facility] Platelet Count 301 150 - 400 K/UL [facility] MPV 6.5 (L) 7 - 11 FL [facility] Neutrophils 80 (H) 41 - 77 % [facility] Lymphocytes 7 (L) 24 - 44 % [facility] Monocytes 8 4 - 12 % [facility] Eosinophils 4 0 - 5 % [facility] Basophils 1 0 - 2 % [facility] Absolute 5.20 1.8 - 7.0 K/UL [facility] Neutrophil Count Absolute Lymph 0.43 (L) 1.0 - 4.8 K/UL [facility] Count Absolute 0.53 0 - 0.80 K/UL [facility] Monocyte Count Absolute 0.23 0 - 0.45 K/UL [facility] Eosinophil Count Absolute 0.04 0 - 0.20 K/UL [facility] Basophil Count Specimen Blood Performing Organization Address City/[facility]/ZIP Code P shane Number [facility] [address] [place] [address] * PHOSPHORUS (11/12/2020 8:24 AM CDT) Phosphorus 3.0 2.0 - 4.5 MG/DL [facility] Specimen Blood Performing Organization Address City/[facility]/ZIP Code P shane Number [facility] [address] [place] [address] * COMPREHENSIVE METABOLIC PANEL (11/12/2020 8:24 AM CDT) Sodium 133 (L) 137 - 147 MMOL/L [facility] Potassium 3.8 3.5 - 5.1 MMOL/L [facility] Chloride 100 98 - 110 MMOL/L [facility] Glucose 86 70 - 100 MG/DL [facility] Blood Urea 19 7 - 25 MG/DL [facility] Nitrogen Creatinine 1.07 (H) 0.4 - 1.00 MG/DL [facility] Calcium 8.2 (L) 8.5 - 10.6 MG/DL [facility] Total Protein 5.3 (L) 6.0 - 8.0 G/DL [facility] Total Bilirubin 1.2 0.3 - 1.2 MG/DL [facility] Albumin 2.7 (L) 3.5 - 5.0 G/DL [facility] Alk Phosphatase 77 25 - 110 U/L [facility] AST (SGOT) 23 7 - 40 U/L [facility] CO2 26 21 - 30 MMOL/L [facility] ALT (SGPT) 11 7 - 56 U/L [facility] Anion Gap 7 3 - 12 [facility] eGFR Non 53 (L) >60 mL/min [facility] Comment: [place] The eGFR is not validated f or use in drug dosing adjustments. Continue to use estimated creatinine clearance per dosing reference text. Please contact the Clinical Pharmacist for questions. eGFR >60 >60 mL/min [facility] [place] Comment: The eGFR is not validated for use in drug dosing adjustments. Continue to use estimated creatinine clearance per dosing reference text. Please contact the Clinical Pharmacist for questions. Specimen Blood Performing Organization Address City/[facility]/ZIP Code P shane Number [facility] [address] [place] [address] * PROTIME INR (PT) (11/12/2020 8:24 AM CDT) INR 1.2 0.8 - 1.2 [facility] Specimen Blood Performing Organization Address City/[facility]/ZIP Code P shane Number [facility] [address] [place] [address] * CBC AND DIFF (11/11/2020 6:05 AM CDT) Pathologist [facility] [place] White Blood 6.6 4.5 - 11.0 K/UL [facility] Cells RBC 2.53 (L) 4.0 - 5.0 M/UL [facility] Hemoglobin 7.9 (L) 12.0 - 15.0 GM/DL [facility] Hematocrit 23.4 (L) 36 - 45 % [facility] MCV 92.5 80 - 100 FL [facility] MCH 31.4 26 - 34 PG [facility] MCHC 33.9 32.0 - 36.0 G/DL [facility] RDW 18.0 (H) 11 - 15 % [facility] Platelet Count 272 150 - 400 K/UL [facility] MPV 6.8 (L) 7 - 11 FL [facility] Neutrophils 83 (H) 41 - 77 % [facility] Lymphocytes 5 (L) 24 - 44 % [facility] Monocytes 8 4 - 12 % [facility] Eosinophils 3 0 - 5 % [facility] Basophils 1 0 - 2 % [facility] Absolute 5.54 1.8 - 7.0 K/UL [facility] Neutrophil Count Absolute Lymph 0.35 (L) 1.0 - 4.8 K/UL [facility] Count Absolute 0.51 0 - 0.80 K/UL [facility] Monocyte Count Absolute 0.22 0 - 0.45 K/UL [facility] Eosinophil Count Absolute 0.03 0 - 0.20 K/UL [facility] Basophil Count Specimen Blood Performing Organization Address City/State/ZIP Code P shane Number [facility] [address] [place] [address] * PHOSPHORUS (11/11/2020 6:05 AM CDT) Pathologist [facility] [place] Phosphorus 2.7 2.0 - 4.5 MG/DL [facility] Specimen Blood Performing Organization Address City/State/ZIP Code P shane Number [facility] [address] [place] [address] * COMPREHENSIVE METABOLIC PANEL (11/11/2020 6:05 AM CDT) Pathologist [facility] [place] Sodium 134 (L) 137 - 147 MMOL/L [facility] Potassium 3.4 (L) 3.5 - 5.1 MMOL/L [facility] Chloride 99 98 - 110 MMOL/L [facility] Glucose 85 70 - 100 MG/DL [facility] Blood Urea 18 7 - 25 MG/DL [facility] Nitrogen Creatinine 1.01 (H) 0.4 - 1.00 MG/DL [facility] Calcium 7.8 (L) 8.5 - 10.6 MG/DL [facility] Total Protein 5.1 (L) 6.0 - 8.0 G/DL [facility] Total Bilirubin 1.3 (H) 0.3 - 1.2 MG/DL [facility] Albumin 2.7 (L) 3.5 - 5.0 G/DL [facility] Alk Phosphatase 80 25 - 110 U/L [facility] AST (SGOT) 24 7 - 40 U/L [facility] CO2 24 21 - 30 MMOL/L [facility] ALT (SGPT) 12 7 - 56 U/L [facility] Anion Gap 11 3 - 12 [facility] eGFR Non 56 (L) >60 mL/min [facility] Comment: [place] The eGFR is not validated f or use in drug dosing adjustments. Continue to use estimated creatinine clearance per dosing reference text. Please contact the Clinical Pharmacist for questions. eGFR >60 >60 mL/min [facility] [place] Comment: The eGFR is not validated for use in drug dosing adjustments. Continue to use estimated creatinine clearance per dosing reference text. Please contact the Clinical Pharmacist for questions. Specimen Blood Performing Organization Address City/State/ZIP Code P shane Number [facility] [address] [place] [address] * PROTIME INR (PT) (11/11/2020 6:05 AM CDT) INR 1.3 (H) 0.8 - 1.2 [facility] Specimen Blood Performing Organization Address City/[facility]/ZIP Code P shane Number [facility] [address] [place] [address] * CBC (11/10/2020 10:02 AM CDT) White Blood 6.9 4.5 - 11.0 K/UL [facility] Cells RBC 2.77 (L) 4.0 - 5.0 M/UL [facility] Hemoglobin 8.7 (L) 12.0 - 15.0 GM/DL [facility] Hematocrit 26.1 (L) 36 - 45 % [facility] MCV 94.4 80 - 100 FL [facility] MCH 31.4 26 - 34 PG [facility] MCHC 33.3 32.0 - 36.0 G/DL [facility] RDW 18.8 (H) 11 - 15 % [facility] Platelet Count 243 150 - 400 K/UL [facility] MPV 6.7 (L) 7 - 11 FL [facility] Specimen Blood Performing Organization Address City/State/ZIP Code P shane Number [facility] [address] [place] [address] * PHOSPHORUS (11/10/2020 10:02 AM CDT) Phosphorus 2.8 2.0 - 4.5 MG/DL [facility] Specimen Blood Performing Organization Address City/[facility]/ZIP Code P shane Number [facility] [address] [place] [address] * COMPREHENSIVE METABOLIC PANEL (11/10/2020 10:02 AM CDT) Sodium 133 (L) 137 - 147 MMOL/L [facility] Potassium 3.5 3.5 - 5.1 MMOL/L [facility] Chloride 98 98 - 110 MMOL/L [facility] Glucose 96 70 - 100 MG/DL [facility] Blood Urea 18 7 - 25 MG/DL [facility] Nitrogen Creatinine 1.18 (H) 0.4 - 1.00 MG/DL [facility] Calcium 8.2 (L) 8.5 - 10.6 MG/DL [facility] Total Protein 5.6 (L) 6.0 - 8.0 G/DL [facility] Total Bilirubin 1.5 (H) 0.3 - 1.2 MG/DL [facility] Albumin 2.9 (L) 3.5 - 5.0 G/DL [facility] Alk Phosphatase 84 25 - 110 U/L [facility] AST (SGOT) 25 7 - 40 U/L [facility] CO2 26 21 - 30 MMOL/L [facility] ALT (SGPT) 14 7 - 56 U/L [facility] Anion Gap 9 3 - 12 [facility] eGFR Non 47 (L) >60 mL/min [facility] Comment: [place] The eGFR is not validated f or use in drug dosing adjustments. Continue to use estimated creatinine clearance per dosing reference text. Please contact the Clinical Pharmacist for questions. eGFR 57 (L) >60 mL/min [facility] [place] Comment: The eGFR is not validated for use in drug dosing adjustments. Continue to use estimated creatinine clearance per dosing reference text. Please contact the Clinical Pharmacist for questions. Specimen Blood Performing Organization Address City/State/ZIP Code P shane Number [facility] [address] [place] [address] * PROTIME INR (PT) (11/10/2020 10:02 AM CDT) INR 1.2 0.8 - 1.2 [facility] Specimen Blood Performing Organization Address City/[facility]/ZIP Code P shane Number [facility] [address] [place] [address] * CBC (11/09/2020 9:42 PM CDT) White Blood 8.1 4.5 - 11.0 K/UL [facility] Cells RBC 2.43 (L) 4.0 - 5.0 M/UL [facility] Hemoglobin 7.7 (L) 12.0 - 15.0 GM/DL [facility] Hematocrit 22.9 (L) 36 - 45 % [facility] MCV 94.2 80 - 100 FL [facility] MCH 31.8 26 - 34 PG [facility] MCHC 33.8 32.0 - 36.0 G/DL [facility] RDW 18.4 (H) 11 - 15 % [facility] Platelet Count 232 150 - 400 K/UL [facility] MPV 6.7 (L) 7 - 11 FL [facility] Specimen Blood Performing Organization Address City/[facility] P shane Number [facility] [address] [place] [phone] * CBC (11/09/2020 1:27 PM CDT) White Blood 8.1 4.5 - 11.0 K/UL [facility] Cells RBC 2.57 (L) 4.0 - 5.0 M/UL [facility] Hemoglobin 8.1 (L) 12.0 - 15.0 GM/DL [facility] Hematocrit 24.1 (L) 36 - 45 % [facility] MCV 93.8 80 - 100 FL [facility] MCH 31.6 26 - 34 PG [facility] MCHC 33.7 32.0 - 36.0 G/DL [facility] RDW 17.5 (H) 11 - 15 % [facility] Platelet Count 220 150 - 400 K/UL [facility] MPV 6.7 (L) 7 - 11 FL [facility] Specimen Blood Performing Organization Address City/[facility]/ZIP Code P shane Number [facility] [address] [place] [address] * HAPTOGLOBIN (11/09/2020 9:45 AM CDT) Haptoglobin <30 16 - 200 MG/DL [facility] Specimen Blood Performing Organization Address City/[facility] Code P shane Number [facility] [address] [place] [id number] * LDH-LACTATE DEHYDROGENASE (11/09/2020 5:43 AM CDT) Lactate 241 (H) 100 - 210 U/L [facility] Dehydrogenase Specimen Performing Organization Address [facility] P shane Number [facility] [address] [place] [address] * BILIRUBIN, DIRECT (11/09/2020 5:43 AM CDT) Bilirubin, 0.4 (H) <0.4 MG/DL [facility] Direct Specimen Performing Organization Address [facility] P shane Number [facility] [address] [place] [address] * CBC (11/09/2020 5:43 AM CDT) White Blood 6.8 4.5 - 11.0 K/UL [facility] Cells RBC 2.33 (L) 4.0 - 5.0 M/UL [facility] Hemoglobin 7.4 (L) 12.0 - 15.0 GM/DL [facility] Hematocrit 21.6 (L) 36 - 45 % [facility] MCV 92.5 80 - 100 FL [facility] MCH 31.6 26 - 34 PG [facility] MCHC 34.1 32.0 - 36.0 G/DL [facility] RDW 17.3 (H) 11 - 15 % [facility] Platelet Count 203 150 - 400 K/UL [facility] MPV 6.8 (L) 7 - 11 FL [facility] Specimen Performing Organization Address [facility] Code P shane Number [facility] [address] [place] [phone] * PHOSPHORUS (11/09/2020 5:43 AM CDT) Phosphorus 2.7 2.0 - 4.5 MG/DL [facility] Specimen Blood Performing Organization Address City/State/ZIP Code P shane Number [facility] [address] [place] [address] * COMPREHENSIVE METABOLIC PANEL (11/09/2020 5:43 AM CDT) Sodium 133 (L) 137 - 147 MMOL/L [facility] Potassium 3.7 3.5 - 5.1 MMOL/L [facility] Chloride 100 98 - 110 MMOL/L [facility] Glucose 88 70 - 100 MG/DL [facility] Blood Urea 20 7 - 25 MG/DL [facility] Nitrogen Creatinine 1.20 (H) 0.4 - 1.00 MG/DL [facility] Calcium 8.1 (L) 8.5 - 10.6 MG/DL [facility] Total Protein 5.1 (L) 6.0 - 8.0 G/DL [facility] Total Bilirubin 1.4 (H) 0.3 - 1.2 MG/DL [facility] Albumin 2.7 (L) 3.5 - 5.0 G/DL [facility] Alk Phosphatase 75 25 - 110 U/L [facility] AST (SGOT) 24 7 - 40 U/L [facility] CO2 26 21 - 30 MMOL/L [facility] ALT (SGPT) 13 7 - 56 U/L [facility] Anion Gap 7 3 - 12 [facility] eGFR Non 46 (L) >60 mL/min [facility] Comment: [place] The eGFR is not validated f or use in drug dosing adjustments. Continue to use estimated creatinine clearance per dosing reference text. Please contact the Clinical Pharmacist for questions. eGFR 56 (L) >60 mL/min [facility] [place] Comment: The eGFR is not validated for use in drug dosing adjustments. Continue to use estimated creatinine clearance per dosing reference text. Please contact the Clinical Pharmacist for questions. Specimen Blood Performing Organization Address City/[facility]/ZIP Code P shane Number [facility] [address] [place] [address] * PROTIME INR (PT) (11/09/2020 5:43 AM CDT) INR 1.3 (H) 0.8 - 1.2 [facility] Specimen Blood Performing Organization Address City/State/ZIP Code P shane Number [facility] [address] [place] [address] * CBC (11/08/2020 9:28 PM CDT) White Blood 8.1 4.5 - 11.0 K/UL [facility] Cells RBC 2.33 (L) 4.0 - 5.0 M/UL [facility] Hemoglobin 7.5 (L) 12.0 - 15.0 GM/DL [facility] Hematocrit 21.3 (L) 36 - 45 % [facility] MCV 91.7 80 - 100 FL [facility] MCH 32.4 26 - 34 PG [facility] MCHC 35.4 32.0 - 36.0 G/DL [facility] RDW 17.7 (H) 11 - 15 % [facility] Platelet Count 194 150 - 400 K/UL [facility] MPV 6.6 (L) 7 - 11 FL [facility] Specimen Blood Performing Organization Address City/[facility]/ZIP Code P shane Number [facility] [address] [place] [phone] * PERIPHERAL SMEAR (11/08/2020 5:46 PM CDT) Peripheral NO QUALITATIVE MORPHOLOGIC [facility] B Smear ABNORMALITIES OF DIAGNOSTIC SIGNIFICANCE. Pathologist INTERPRETED BY JOHNIE Burton [facility] Krzysztof MSean. By the PATH SIGNATURE ABOVE, I attest that I have personally formulated the final interpretation expressed in this report and that the above diagnosis is based upon my examination of the slides and/or other material indicated in this report. Specimen Blood Performing Organization Address City/[facility]/ZIP Code P shane Number [facility] [address] [place] [address] * FIBRINOGEN (11/08/2020 5:46 PM CDT) Fibrinogen 347 200 - 400 MG/DL [facility] Specimen Blood Performing Organization Address City/[facility]/ZIP Code P shane Number [facility] [address] [place] [phone] * CT LOWER EXTREM WO CONT BILAT [...] 9:30 PM. Narrative Performed At [facility] CONT BILAT [facility] RESULTS Technique: Multiple [...] shane Number [facility] RES[facility] * CT ABD/PELV WO CONTRAST (11/08/2020 5:28 [...] P shane Number [facility] * CBC (11/08/2020 3:03 PM CDT) White Blood 8.7 4.5 - 11.0 K/UL [facility] Cells RBC 2.45 (L) 4.0 - 5.0 M/UL [facility] Hemoglobin 7.6 (L) 12.0 - 15.0 GM/DL [facility] Hematocrit 22.6 (L) 36 - 45 % [facility] MCV 92.5 80 - 100 FL [facility] MCH 31.1 26 - 34 PG [facility] MCHC 33.6 32.0 - 36.0 G/DL [facility] RDW 17.8 (H) 11 - 15 % [facility] Platelet Count 195 150 - 400 K/UL [facility] MPV 6.8 (L) 7 - 11 FL [facility] Specimen Blood Performing Organization Address City/[facility]/ZIP Code P shane Number [facility] [address] [place] [address] * CBC AND DIFF (11/08/2020 10:04 AM CDT) White Blood 8.4 4.5 - 11.0 K/UL [facility] Cells RBC 2.54 (L) 4.0 - 5.0 M/UL [facility] Hemoglobin 8.0 (L) 12.0 - 15.0 GM/DL [facility] Hematocrit 23.6 (L) 36 - 45 % [facility] MCV 92.8 80 - 100 FL [facility] MCH 31.6 26 - 34 PG [facility] MCHC 34.1 32.0 - 36.0 G/DL [facility] RDW 18.2 (H) 11 - 15 % [facility] Platelet Count 203 150 - 400 K/UL [facility] MPV 7.0 7 - 11 FL [facility] Neutrophils 87 (H) 41 - 77 % [facility] Lymphocytes 5 (L) 24 - 44 % [facility] Monocytes 6 4 - 12 % [facility] Eosinophils 2 0 - 5 % [facility] Basophils 0 0 - 2 % [facility] Absolute 7.40 (H) 1.8 - 7.0 K/UL [facility] Neutrophil Count Absolute Lymph 0.38 (L) 1.0 - 4.8 K/UL [facility] Count Absolute 0.48 0 - 0.80 K/UL [facility] Monocyte Count Absolute 0.15 0 - 0.45 K/UL [facility] Eosinophil Count Absolute 0.03 0 - 0.20 K/UL [facility] Basophil Count Specimen Blood Performing Organization Address City/State/ZIP Code P shane Number [facility] [address] [place] [address] * PHOSPHORUS (11/08/2020 2:32 AM CDT) Phosphorus 2.4 2.0 - 4.5 MG/DL [facility] Specimen Blood Performing Organization Address City/[facility]/ZIP Code P shane Number [facility] [address] [place] [address] * COMPREHENSIVE METABOLIC PANEL (11/08/2020 2:32 AM CDT) Sodium 131 (L) 137 - 147 MMOL/L [facility] Potassium 3.9 3.5 - 5.1 MMOL/L [facility] Chloride 99 98 - 110 MMOL/L [facility] Glucose 93 70 - 100 MG/DL [facility] Blood Urea 24 7 - 25 MG/DL [facility] Nitrogen Creatinine 1.49 (H) 0.4 - 1.00 MG/DL [facility] Calcium 7.8 (L) 8.5 - 10.6 MG/DL [facility] Total Protein 4.9 (L) 6.0 - 8.0 G/DL [facility] Total Bilirubin 1.1 0.3 - 1.2 MG/DL [facility] Albumin 2.6 (L) 3.5 - 5.0 G/DL [facility] Alk Phosphatase 65 25 - 110 U/L [facility] AST (SGOT) 27 7 - 40 U/L [facility] CO2 24 21 - 30 MMOL/L [facility] ALT (SGPT) 14 7 - 56 U/L [facility] Anion Gap 8 3 - 12 [facility] eGFR Non 36 (L) >60 mL/min [facility] Comment: [place] The eGFR is not validated f or use in drug dosing adjustments. Continue to use estimated creatinine clearance per dosing reference text. Please contact the Clinical Pharmacist for questions. eGFR 43 (L) >60 mL/min [facility] [place] Comment: The eGFR is not validated for use in drug dosing adjustments. Continue to use estimated creatinine clearance per dosing reference text. Please contact the Clinical Pharmacist for questions. Specimen Blood Performing Organization Address City/[facility]/ZIP Code P shane Number [facility] [address] [place] [address] * PROTIME INR (PT) (11/08/2020 2:32 AM CDT) INR 1.4 (H) 0.8 - 1.2 [facility] Specimen Blood Performing Organization Address City/[facility] P shane Number [facility] [address] [place] [address] * CBC AND DIFF (11/08/2020 2:32 AM CDT) White Blood 8.6 4.5 - 11.0 K/UL [facility] Cells RBC 2.37 (L) 4.0 - 5.0 M/UL [facility] Hemoglobin 7.3 (L) 12.0 - 15.0 GM/DL [facility] Hematocrit 21.8 (L) 36 - 45 % [facility] MCV 92.0 80 - 100 FL [facility] MCH 30.9 26 - 34 PG [facility] MCHC 33.6 32.0 - 36.0 G/DL [facility] RDW 17.4 (H) 11 - 15 % [facility] Platelet Count 180 150 - 400 K/UL [facility] MPV 6.8 (L) 7 - 11 FL [facility] Neutrophils 82 (H) 41 - 77 % [facility] Lymphocytes 7 (L) 24 - 44 % [facility] Monocytes 8 4 - 12 % [facility] Eosinophils 2 0 - 5 % [facility] Basophils 1 0 - 2 % [facility] Absolute 7.11 (H) 1.8 - 7.0 K/UL [facility] Neutrophil Count Absolute Lymph 0.62 (L) 1.0 - 4.8 K/UL [facility] Count Absolute 0.67 0 - 0.80 K/UL [facility] Monocyte Count Absolute 0.18 0 - 0.45 K/UL [facility] Eosinophil Count Absolute 0.04 0 - 0.20 K/UL [facility] Basophil Count Specimen Blood Performing Organization Address [facility]/ZIP Code P shane Number [facility] [address] [place] [address] * CBC AND DIFF (11/07/2020 6:50 PM CDT) White Blood 11.9 (H) 4.5 - 11.0 K/UL [facility] Cells RBC 2.59 (L) 4.0 - 5.0 M/UL [facility] Hemoglobin 7.9 (L) 12.0 - 15.0 GM/DL [facility] Hematocrit 23.9 (L) 36 - 45 % [facility] MCV 92.4 80 - 100 FL [facility] MCH 30.4 26 - 34 PG [facility] MCHC 32.9 32.0 - 36.0 G/DL [facility] RDW 17.8 (H) 11 - 15 % [facility] Platelet Count 211 150 - 400 K/UL [facility] MPV 6.8 (L) 7 - 11 FL [facility] Neutrophils 88 (H) 41 - 77 % [facility] Lymphocytes 4 (L) 24 - 44 % [facility] Monocytes 7 4 - 12 % [facility] Eosinophils 1 0 - 5 % [facility] Basophils 0 0 - 2 % [facility] Absolute 10.33 (H) 1.8 - 7.0 K/UL [facility] Neutrophil Count Absolute Lymph 0.50 (L) 1.0 - 4.8 K/UL [facility] Count Absolute 0.83 (H) 0 - 0.80 K/UL [facility] Monocyte Count Absolute 0.17 0 - 0.45 K/UL [facility] Eosinophil Count Absolute 0.05 0 - 0.20 K/UL [facility] Basophil Count Specimen Blood Performing Organization Address City/State/ZIP Code P shane Number [facility] [address] [place] [address] * CBC AND DIFF (11/07/2020 9:14 AM CDT) White Blood 12.9 (H) 4.5 - 11.0 K/UL [facility] Cells RBC 2.18 (L) 4.0 - 5.0 M/UL [facility] Hemoglobin 6.7 (L) 12.0 - 15.0 GM/DL [facility] Hematocrit 20.1 (L) 36 - 45 % [facility] MCV 92.4 80 - 100 FL [facility] MCH 30.8 26 - 34 PG [facility] MCHC 33.3 32.0 - 36.0 G/DL [facility] RDW 17.9 (H) 11 - 15 % [facility] Platelet Count 194 150 - 400 K/UL [facility] [...] - 2 % [facility] Absolute 10.92 (H) 1.8 - 7.0 K/UL [facility] Neutrophil Count Absolute Lymph 0.65 (L) 1.0 - 4.8 K/UL [facility] Count Absolute 1.05 (H) 0 - 0.80 K/UL [facility] Monocyte Count Absolute 0.18 0 - 0.45 K/UL [facility] Eosinophil Count Absolute 0.07 0 - 0.20 K/UL [facility] Basophil Count Specimen Blood Performing Organization Address City/State/ZIP Code P shane Number [facility] [address] [place] [address] * PHOSPHORUS (11/07/2020 5:24 AM CDT) Phosphorus 2.7 2.0 - 4.5 MG/DL [facility] Specimen Blood Performing Organization Address City/State/ZIP Code P shane Number [facility] [address] [place] [address] * COMPREHENSIVE METABOLIC PANEL (11/07/2020 5:24 AM CDT) Sodium 132 (L) 137 - 147 MMOL/L [facility] Potassium 4.1 3.5 - 5.1 MMOL/L [facility] Chloride 101 98 - 110 MMOL/L [facility] Glucose 97 70 - 100 MG/DL [facility] Blood Urea 22 7 - 25 MG/DL [facility] Nitrogen Creatinine 1.35 (H) 0.4 - 1.00 MG/DL [facility] Calcium 7.7 (L) 8.5 - 10.6 MG/DL [facility] Total Protein 4.6 (L) 6.0 - 8.0 G/DL [facility] Total Bilirubin 1.1 0.3 - 1.2 MG/DL [facility] Albumin 2.5 (L) 3.5 - 5.0 G/DL [facility] Alk Phosphatase 58 25 - 110 U/L [facility] AST (SGOT) 37 7 - 40 U/L [facility] CO2 23 21 - 30 MMOL/L [facility] ALT (SGPT) 19 7 - 56 U/L [facility] Anion Gap 8 3 - 12 [facility] eGFR Non 40 (L) >60 mL/min [facility] Comment: [place] The eGFR is not validated f or use in drug dosing adjustments. Continue to use estimated creatinine clearance per dosing reference text. Please contact the Clinical Pharmacist for questions. eGFR 49 (L) >60 mL/min [facility] [place] Comment: The eGFR is not validated for use in drug dosing adjustments. Continue to use estimated creatinine clearance per dosing reference text. Please contact the Clinical Pharmacist for questions. Specimen Blood Performing Organization Address City/State/ZIP Code P shane Number [facility] [address] [place] [address] * PROTIME INR (PT) (11/07/2020 5:24 AM CDT) INR 1.5 (H) 0.8 - 1.2 [facility] Specimen Blood Performing Organization Address City/State/ZIP Code P shane Number [facility] [address] [place] [address] * CBC AND DIFF (11/07/2020 3:53 AM CDT) White Blood 13.8 (H) 4.5 - 11.0 K/UL [facility] Cells RBC 2.32 (L) 4.0 - 5.0 M/UL [facility] Hemoglobin 7.1 (L) 12.0 - 15.0 GM/DL [facility] Hematocrit 21.3 (L) 36 - 45 % [facility] MCV 91.9 80 - 100 FL [facility] MCH 30.6 26 - 34 PG [facility] MCHC 33.3 32.0 - 36.0 G/DL [facility] MAIN LAB RDW 18.3 (H) 11 - 15 % [facility] Platelet Count 216 150 - 400 K/UL [facility] MPV 6.6 (L) 7 - 11 FL [facility] Neutrophils 83 (H) 41 - 77 % [facility] Lymphocytes 6 (L) 24 - 44 % [facility] Monocytes 8 4 - 12 % [facility] Eosinophils 2 0 - 5 % [facility] Basophils 1 0 - 2 % [facility] Absolute 11.47 (H) 1.8 - 7.0 K/UL [facility] Neutrophil Count Absolute Lymph 0.86 (L) 1.0 - 4.8 K/UL [facility] Count Absolute 1.14 (H) 0 - 0.80 K/UL [facility] Monocyte Count Absolute 0.24 0 - 0.45 K/UL [facility] Eosinophil Count Absolute 0.08 0 - 0.20 K/UL [facility] Basophil Count Specimen Blood Performing Organization Address City/[facility] Code P shane Number [facility] MAIN [facility] [address] [place] [address] * CBC AND DIFF (11/06/2020 9:30 PM CDT) White Blood 13.0 (H) 4.5 - 11.0 K/UL [facility] Cells RBC 2.28 (L) 4.0 - 5.0 M/UL [facility] Hemoglobin 7.1 (L) 12.0 - 15.0 GM/DL [facility] Hematocrit 20.9 (L) 36 - 45 % [facility] MCV 91.7 80 - 100 FL [facility] MCH 31.3 26 - 34 PG [facility] MCHC 34.2 32.0 - 36.0 G/DL [facility] RDW 18.3 (H) 11 - 15 % [facility] Platelet Count 213 150 - 400 K/UL [facility] MPV 7.1 7 - 11 FL [facility] Neutrophils 84 (H) 41 - 77 % [facility] Lymphocytes 6 (L) 24 - 44 % [facility] Monocytes 9 4 - 12 % [facility] Eosinophils 1 0 - 5 % [facility] Basophils 0 0 - 2 % [facility] Absolute 10.86 (H) 1.8 - 7.0 K/UL [facility] Neutrophil Count Absolute Lymph 0.77 (L) 1.0 - 4.8 K/UL [facility] Count Absolute 1.19 (H) 0 - 0.80 K/UL [facility] Monocyte Count Absolute 0.12 0 - 0.45 K/UL [facility] Eosinophil Count Absolute 0.03 0 - 0.20 K/UL [facility] Basophil Count Specimen Blood Performing Organization Address City/[facility]/ZIP Code P shane Number [facility] [address] [place] [address] * TRANSFUSE RBC'S (11/06/2020 7:36 PM CDT) Specimen Blood * TRANSFUSE RBC'S (11/06/2020 7:36 PM CDT) Specimen Blood * HEMOGLOBIN & HEMATOCRIT (11/06/2020 3:20 PM CDT) Hemoglobin 6.7 (L) 12.0 - 15.0 GM/DL [facility] Hematocrit 20.2 (L) 36 - 45 % [facility] Specimen Blood Performing Organization Address [facility] Code P shane Number [facility] [address] [place] [address] * URINALYSIS, MICROSCOPIC (11/06/2020 9:05 AM CDT) WBCs,UA PACKED 0 - 2 /HPF [facility] RBCs,UA PACKED 0 - 3 /HPF [facility] Specimen Urine - Urine Performing Organization Address [facility] P shane Number [facility] [address] [place] [address] * URINALYSIS DIPSTICK (11/06/2020 9:05 AM CDT) Color,UA RED [facility] Turbidity,UA CLEAR CLEAR-CLEAR [facility] Specific 1.037 (H) 1.003 - 1.035 [facility] [place]-Urine pH,UA 6.0 5.0 - 8.0 [facility] MAIN [...] Specimen Urine - Urine Performing Organization Address [facility] Code P shane Number [facility] [address] [place] [address] * URINE HGB FOR TRANFUSION REACTION (11/06/2020 9:05 AM CDT) Urine Hgb on 2+ [facility] Transfusion RX Specimen Urine Performing Organization Address City/[facility]/ZIP Code P shane Number [facility] [address] [place] [id number] * CBC AND DIFF (11/06/2020 8:48 AM CDT) White Blood 14.4 (H) 4.5 - 11.0 K/UL [facility] Cells RBC 1.75 (L) 4.0 - 5.0 M/UL [facility] Hemoglobin 5.7 (LL) 12.0 - 15.0 GM/DL [facility] Comment: CRITICAL VALUE CALLED TO AND READ BACK BY/TIME/TECH RN Nancy [place] at 11/06/2020 09:58:47 by 978 Hematocrit 16.6 (L) 36 - 45 % [facility] MCV 94.8 80 - 100 FL [facility] MCH 32.7 26 - 34 PG [facility] MCHC 34.5 32.0 - 36.0 G/DL [facility] RDW 17.0 (H) 11 - 15 % [facility] Platelet Count 245 150 - 400 K/UL [facility] MPV 6.8 (L) 7 - 11 FL [facility] Neutrophils 92 (H) 41 - 77 % [facility] Lymphocytes 2 (L) 24 - 44 % [facility] Monocytes 6 4 - 12 % [facility] Eosinophils 0 0 - 5 % [facility] Basophils 0 0 - 2 % [facility] Absolute 13.21 (H) 1.8 - 7.0 K/UL [facility] Neutrophil Count Absolute Lymph 0.33 (L) 1.0 - 4.8 K/UL [facility] Count Absolute 0.80 0 - 0.80 K/UL [facility] Monocyte Count Absolute 0.01 0 - 0.45 K/UL [facility] Eosinophil Count Absolute 0.04 0 - 0.20 K/UL [facility] Basophil Count Specimen Blood Performing Organization Address City/State/ZIP Code P shane Number [facility] [address] [place] [address] * PHOSPHORUS (11/06/2020 8:26 AM CDT) Phosphorus 3.5 2.0 - 4.5 MG/DL [facility] Specimen Blood Performing Organization Address City/State/ZIP Code P shane Number [facility] [address] [place] [address] * COMPREHENSIVE METABOLIC PANEL (11/06/2020 8:26 AM CDT) Sodium 133 (L) 137 - 147 MMOL/L [facility] Potassium 4.2 3.5 - 5.1 MMOL/L [facility] Chloride 103 98 - 110 MMOL/L [facility] Glucose 141 (H) 70 - 100 MG/DL [facility] Blood Urea 19 7 - 25 MG/DL [facility] Nitrogen Creatinine 1.14 (H) 0.4 - 1.00 MG/DL [facility] Calcium 7.3 (L) 8.5 - 10.6 MG/DL [facility] Total Protein 4.1 (L) 6.0 - 8.0 G/DL [facility] Total Bilirubin 1.0 0.3 - 1.2 MG/DL [facility] Albumin 2.3 (L) 3.5 - 5.0 G/DL [facility] Alk Phosphatase 53 25 - 110 U/L [facility] AST (SGOT) 46 (H) 7 - 40 U/L [facility] CO2 23 21 - 30 MMOL/L [facility] ALT (SGPT) 22 7 - 56 U/L [facility] Anion Gap 7 3 - 12 [facility] eGFR Non 49 (L) >60 mL/min [facility] Comment: [place] The eGFR is not validated f or use in drug dosing adjustments. Continue to use estimated creatinine clearance per dosing reference text. Please contact the Clinical Pharmacist for questions. eGFR 59 (L) >60 mL/min [facility] [place] Comment: The eGFR is not validated for use in drug dosing adjustments. Continue to use estimated creatinine clearance per dosing reference text. Please contact the Clinical Pharmacist for questions. Specimen Blood Performing Organization Address City/[facility]/ZIP Code P shane Number MAIN LAB [address] [place] [address] * PROTIME INR (PT) (11/06/2020 8:26 AM CDT) INR 1.9 (H) 0.8 - 1.2 [facility] Specimen Blood Performing Organization Address City/State/ZIP Code P shane Number [facility] [address] [place] [address] * POC GLUCOSE (11/06/2020 7:43 AM CDT) Glucose, POC 158 (H) 70 - 100 MG/DL [facility] Specimen Performing Organization Address City/State/[facility] P shane Number [facility] [address] [place] [address] * IR MESENTERIC ARTERIOGRAM DIAGNOSTIC (11/06/2020 5:50 [...] The needle was exchanged for a 4 Icelandic transitional catheter. The inner dilator and the 0.018 wire were removed and a 0.035 Bentson wire was advanced into the artery. The transitional catheter was exchanged for 5 Icelandic vascular sheath, attached to a heparinized pressurized [...] of right superf icial femoral arteriovenous fistula. I, Blair Greene M.D, the attending r adiologist, was present [...] of cirrhosis. OPERATING PHYSICIAN: Rogelio Mckeon and eMliza Almaguer M.D. ACCESS SITE: Right common femoral [...] needle was exchan ged for a 5 Icelandic transitional catheter. The inner dilator and the 0.018 wire we re removed and a 0.035 Bentson wire was advanced into the artery. Through the m icrocatheter a Bentson wire was advanced into the abdominal aorta. The microcath eter was withdrawn and exchanged for a 6 Icelandic sheath. The sheath was attached to a continuous heparinized saline infusion. A 5 Icelandic Omni Flush catheter was adva nced to [...] catheter was exchanged f or a 5 Icelandic JAYLIN 1 catheter over a [employer] wire. The JAYLIN 1 catheter was adv anced into the left inferior epigastric artery. Digital subtraction angiography was performed which showed areas of active extravasation from several small branch vessels. Next, a 2.8 Icelandic microcatheter was advanced in a coaxial fashion [...] The needle was exchanged for a 5 Icelandic transitional catheter. The inner dilator and the 0.018 wire were removed and a 0.035 Bentson wire was advanced into the artery. Through the microcatheter a Bentson wire was advanced into the abdominal aorta. The microcatheter was withdrawn and exchanged for a 6 Icelandic sheath. The sheath was attached to a continuous heparinized saline infusion. A 5 Icelandic Omni Flush catheter was advanced to the level of the aortic bifurcation. Digital subtraction pelvic arteriogram was performed. This demonstrated patency of the distal abdominal aorta, bilateral common, internal and external iliac arteries. Small foci of active extravasation are seen in the left lower quadrant. Next, a Glidewire and JB1 catheter were used to select the left external iliac artery. The 5 korean catheter was advanced over the wire and a hand injected arteriogram was performed. This demonstrate patency of the left external iliac artery and common iliac artery. There is active extravasation arising from left inferior epigastric artery branches. The Omni flush catheter was exchanged for a 5 Icelandic JAYLIN 1 catheter over a Bentson wire. The JAYLIN 1 catheter was advanced into the left inferior epigastric artery. Digital subtraction angiography was performed which showed areas of active extravasation from several small branch vessels. Next, a 2.8 Icelandic microcatheter was advanced in a coaxial fashion [...] [facility] * TRANSFUSE RBC'S (11/06/2020 4:50 AM CDT) Specimen Blood * TRANSFUSE RBC'S (11/06/2020 4:50 AM CDT) Specimen Blood * TEG WITH KAOLIN (11/06/2020 3:49 AM CDT) MA Kaolin 70.8 >49.9 MM REFERENCE LAB R Kaolin 2.9 <9.1 MIN REFERENCE LAB RK Kaolin 3.7 <12.1 MIN REFERENCE LAB K Kaolin 0.8 <3.1 MIN REFERENCE LAB Angle Kaolin 80.7 >54.9 DEG REFERENCE LAB Lysis30 0.3 <8.1 % REFERENCE LAB Specimen Blood Performing Organization Address City/[facility]/ZIP Code P shane Number REFERENCE LAB REFERENCE LAB See results for address. * PTT (APTT) (11/06/2020 3:49 AM CDT) APTT 29.6 24.0 - 36.5 SEC [facility] Specimen Blood Performing Organization Address [facility] P shane Number [facility] [address] [place] [address] * PROTIME INR (PT) (11/06/2020 3:49 AM CDT) INR 2.2 (H) 0.8 - 1.2 [facility] Specimen Blood Performing Organization Address [facility] P shane Number [facility] [address] [place] [address] * BNP (B-TYPE NATRIURETIC PEPTI) (11/06/2020 3:28 AM CDT) B Type 159.0 (H) 0 - 100 PG/ML [facility] Natriuretic Peptide Specimen Blood Performing Organization Address [facility] P shane Number [facility] [address] [place] [address] * TRANSFUSION REACTION EVALUATION (11/06/2020 3:28 AM [...] underlying diseaseComment: of Reaction Report Available in Epic Pathology INTERPRETED BY CHIKI HUYNH M.D. K[facility] [...] Code P shane Number MAIN LAB [address] [place] [address] * BASIC METABOLIC PANEL (11/06/2020 3:28 AM CDT) Pathologist [facility] [place] Sodium 132 (L) 137 - 147 MMOL/L [facility] Potassium 4.2 3.5 - 5.1 MMOL/L [facility] Chloride 102 98 - 110 MMOL/L [facility] CO2 22 21 - 30 MMOL/L [facility] Anion Gap 8 3 - 12 [facility] Glucose 165 (H) 70 - 100 MG/DL [facility] Blood Urea 20 7 - 25 MG/DL [facility] Nitrogen Creatinine 1.33 (H) 0.4 - 1.00 MG/DL [facility] Calcium 7.3 (L) 8.5 - 10.6 MG/DL [facility] eGFR Non 41 (L) >60 mL/min [facility] Comment: [place] The eGFR is not validated f or use in drug dosing adjustments. Continue to use estimated creatinine clearance per dosing reference text. Please contact the Clinical Pharmacist for questions. eGFR 50 (L) >60 mL/min [facility] [place] Comment: The eGFR is not validated for use in drug dosing adjustments. Continue to use estimated creatinine clearance per dosing reference text. Please contact the Clinical Pharmacist for questions. Specimen Blood Performing Organization Address City/[facility]/ZIP [facility] P shane Number [facility] MAIN [facility] [address] [place] [id number] * CBC (11/06/2020 3:28 AM CDT) White Blood 10.3 4.5 - 11.0 K/UL [facility] Cells RBC 1.35 (L) 4.0 - 5.0 M/UL [facility] Hemoglobin 4.5 (LL) 12.0 - 15.0 GM/DL [facility] Comment: CRITICAL VALUE CALLED TO AND READ BACK BY/TIME/TECH CHRYSTAL ROTH at 11/06/2020 03:56 by [id number] Hematocrit 13.1 (L) 36 - 45 % [facility] MCV 97.5 80 - 100 FL [facility] MCH 33.6 26 - 34 PG [facility] MCHC 34.5 32.0 - 36.0 G/DL [facility] RDW 18.5 (H) 11 - 15 % [facility] Platelet Count 276 150 - 400 K/UL [facility] MPV 7.2 7 - 11 FL [facility] Specimen Blood Performing Organization Address City/State/ZIP Code P shane Number [facility] [address] [place] [address] * POC LACTATE (11/06/2020 3:12 AM CDT) Pathologist [facility] [place] LACTIC ACID POC 4.0 (HH) 0.5 - 2.0 MMOL/L [facility] Specimen Performing Organization Address City/[facility] Code P shane Number [facility]IN [facility] [address] [place] [address] * CBC AND DIFF (11/06/2020 12:00 AM CDT) Pathologist [facility] [place] White Blood 9.3 4.5 - 11.0 K/UL [facility] Cells RBC 1.99 (L) 4.0 - 5.0 M/UL [facility] Hemoglobin 6.4 (L) 12.0 - 15.0 GM/DL [facility] Hematocrit 19.3 (L) 36 - 45 % [facility] MCV 97.0 80 - 100 FL [facility] MCH 32.4 26 - 34 PG [facility] MCHC 33.4 32.0 - 36.0 G/DL [facility] RDW 17.7 (H) 11 - 15 % [facility] Platelet Count 286 150 - 400 K/UL [facility] [...] - 2 % [facility] Absolute 8.34 (H) 1.8 - 7.0 K/UL [facility] Neutrophil Count Absolute Lymph 0.36 (L) 1.0 - 4.8 K/UL [facility] Count Absolute 0.56 0 - 0.80 K/UL [facility] Monocyte Count Absolute 0.03 0 - 0.45 K/UL [facility] Eosinophil Count Absolute 0.06 0 - 0.20 K/UL [facility] Basophil Count Specimen Blood Performing Organization Address City/[facility]/ZIP Code P shane Number [facility] [address] [place] [address] * PTT (APTT) (11/05/2020 9:49 PM CDT) APTT 36.2 24.0 - 36.5 SEC [facility] Specimen Blood Performing Organization Address City/[facility] Code P shane Number [facility] [address] [place] [address] * CBC AND DIFF (11/05/2020 5:28 PM CDT) White Blood 7.5 4.5 - 11.0 K/UL [facility] Cells RBC 2.26 (L) 4.0 - 5.0 M/UL [facility] Hemoglobin 7.3 (L) 12.0 - 15.0 GM/DL [facility] Hematocrit 22.1 (L) 36 - 45 % [facility] MCV 98.0 80 - 100 FL [facility] MCH 32.1 26 - 34 PG [facility] MCHC 32.8 32.0 - 36.0 G/DL [facility] RDW 18.4 (H) 11 - 15 % [facility] Platelet Count 269 150 - 400 K/UL [facility] MPV 6.7 (L) 7 - 11 FL [facility] Neutrophils 80 (H) 41 - 77 % [facility] Lymphocytes 7 (L) 24 - 44 % [facility] Monocytes 9 4 - 12 % [facility] Eosinophils 3 0 - 5 % [facility] Basophils 1 0 - 2 % [facility] Absolute 5.99 1.8 - 7.0 K/UL [facility] Neutrophil Count Absolute Lymph 0.54 (L) 1.0 - 4.8 K/UL [facility] Count Absolute 0.64 0 - 0.80 K/UL [facility] Monocyte Count Absolute 0.20 0 - 0.45 K/UL [facility] Eosinophil Count Absolute 0.08 0 - 0.20 K/UL [facility] Basophil Count Specimen Blood Performing Organization Address City/[facility]/ZIP Code P shane Number [facility] [address] [place] [address] * PTT (APTT) (11/05/2020 2:20 PM CDT) APTT 33.9 24.0 - 36.5 SEC [facility] Specimen Performing Organization Address [facility] P shane Number [facility] [address] [place] [address] * PROTIME INR (PT) (11/05/2020 2:20 PM CDT) INR 2.0 (H) 0.8 - 1.2 [facility] Specimen Blood Performing Organization Address [facility] P shane Number [facility] [address] [place] [address] * CBC AND DIFF (11/05/2020 11:18 AM CDT) White Blood 6.1 4.5 - 11.0 K/UL [facility] Cells RBC 2.25 (L) 4.0 - 5.0 M/UL [facility] Hemoglobin 7.4 (L) 12.0 - 15.0 GM/DL [facility] Hematocrit 21.7 (L) 36 - 45 % [facility] MCV 96.7 80 - 100 FL [facility] MCH 32.9 26 - 34 PG [facility] MCHC 34.0 32.0 - 36.0 G/DL [facility] RDW 18.6 (H) 11 - 15 % [facility] Platelet Count 257 150 - 400 K/UL [facility] MPV 6.5 (L) 7 - 11 FL [facility] Neutrophils 84 (H) 41 - 77 % [facility] Lymphocytes 6 (L) 24 - 44 % [facility] Monocytes 8 4 - 12 % [facility] Eosinophils 1 0 - 5 % [facility] Basophils 1 0 - 2 % [facility] Absolute 5.17 1.8 - 7.0 K/UL [facility] Neutrophil Count Absolute Lymph 0.36 (L) 1.0 - 4.8 K/UL [facility] Count Absolute 0.49 0 - 0.80 K/UL [facility] Monocyte Count Absolute 0.07 0 - 0.45 K/UL [facility] Eosinophil Count Absolute 0.06 0 - 0.20 K/UL [facility] Basophil Count Specimen Blood Performing Organization Address [facility] P shane Number [facility] [address] [place] [address] * LACTIC ACID(LACTATE) (11/05/2020 5:46 AM CDT) Lactic Acid 0.8 0.5 - 2.0 MMOL/L [facility] Specimen Blood Performing Organization Address City/[facility]/ZIP Code P shane Number [facility] [address] [place] [address] * PHOSPHORUS (11/05/2020 5:46 AM CDT) Phosphorus 2.7 2.0 - 4.5 MG/DL [facility] Specimen Blood Performing Organization Address City/[facility] P shane Number [facility] [address] [place] [address] * COMPREHENSIVE METABOLIC PANEL (11/05/2020 5:46 AM CDT) Sodium 137 137 - 147 MMOL/L [facility] Potassium 3.9 3.5 - 5.1 MMOL/L [facility] Chloride 102 98 - 110 MMOL/L [facility] Glucose 78 70 - 100 MG/DL [facility] Blood Urea 15 7 - 25 MG/DL [facility] Nitrogen Creatinine 1.04 (H) 0.4 - 1.00 MG/DL [facility] Calcium 8.4 (L) 8.5 - 10.6 MG/DL [facility] Total Protein 5.2 (L) 6.0 - 8.0 G/DL [facility] Total Bilirubin 0.9 0.3 - 1.2 MG/DL [facility] Albumin 2.9 (L) 3.5 - 5.0 G/DL [facility] Alk Phosphatase 72 25 - 110 U/L [facility] AST (SGOT) 23 7 - 40 U/L [facility] CO2 26 21 - 30 MMOL/L [facility] ALT (SGPT) 10 7 - 56 U/L [facility] Anion Gap 9 3 - 12 [facility] eGFR Non 54 (L) >60 mL/min [facility] Comment: [place] The eGFR is not validated f or use in drug dosing adjustments. Continue to use estimated creatinine clearance per dosing reference text. Please contact the Clinical Pharmacist for questions. eGFR >60 >60 mL/min [facility] [place] Comment: The eGFR is not validated for use in drug dosing adjustments. Continue to use estimated creatinine clearance per dosing reference text. Please contact the Clinical Pharmacist for questions. Specimen Blood Performing Organization Address City/[facility]/ZIP Code P shane Number [facility] [address] [place] [address] * PROTIME INR (PT) (11/05/2020 5:46 AM CDT) INR 2.2 (H) 0.8 - 1.2 [facility] Specimen Blood Performing Organization Address City/[facility]/ZIP Code P shane Number [facility] [address] [place] [address] * CBC AND DIFF (11/05/2020 5:46 AM CDT) White Blood 5.3 4.5 - 11.0 K/UL [facility] Cells RBC 2.27 (L) 4.0 - 5.0 M/UL [facility] Hemoglobin 7.4 (L) 12.0 - 15.0 GM/DL [facility] Hematocrit 22.0 (L) 36 - 45 % [facility] MCV 97.0 80 - 100 FL [facility] MCH 32.8 26 - 34 PG [facility] MCHC 33.8 32.0 - 36.0 G/DL [facility] RDW 18.8 (H) 11 - 15 % [facility] Platelet Count 242 150 - 400 K/UL [facility] MPV 6.3 (L) 7 - 11 FL [facility] Neutrophils 79 (H) 41 - 77 % [facility] Lymphocytes 8 (L) 24 - 44 % [facility] Monocytes 9 4 - 12 % [facility] Eosinophils 3 0 - 5 % [facility] Basophils 1 0 - 2 % [facility] Absolute 4.15 1.8 - 7.0 K/UL [facility] Neutrophil Count Absolute Lymph 0.41 (L) 1.0 - 4.8 K/UL [facility] Count Absolute 0.50 0 - 0.80 K/UL [facility] Monocyte Count Absolute 0.16 0 - 0.45 K/UL [facility] Eosinophil Count Absolute 0.04 0 - 0.20 K/UL [facility] Basophil Count Specimen Blood Performing Organization Address City/[facility]/ZIP Code P shane Number [facility] [address] [place] [address] * CHEST SINGLE VIEW (11/04/2020 9:11 PM CDT) Specimen Impressions Performed At 1. Mild cardiomegaly with pulmonary v enous congestion and indistinct pulmonary [facility] RESULTS vasculature suggesting pulmonary edema. 2. Small pleural effusions, greater o n the right, with bibasilar atelectasis. Finalized by Lavern Orozco M.D. on 8:28 AM. Dictated by Lavern Orozco M.D. on 11/05/2020 8:26 AM. Narrative Performed At CHEST SINGLE VIEW [facility] INDICATION: Shortness of breath. COMPARISON STUDY: None. FINDINGS: Lungs/Pleura: The lung volume is normal . Indistinct pulmonary vasculature. Small pleural effusions, greater on the right . Bibasilar opacities. No pneumothorax.. Heart and Mediastinum: Mild cardiomegal y and pulmonary venous congestion. Prior median sternotomy and CABG. Prior aorti c valve replacement. Procedure Note Interface, Radiant Results - 11/05/2020 8:32 AM CDT CHEST SINGLE VIEW INDICATION: Shortness of breath. COMPARISON STUDY: None. FINDINGS: Lungs/Pleura: The lung volume is normal. Indistinct pulmonary vasculature. Small pleural effusions, greater on the right. Bibasilar opacities. No pneumothorax.. Heart and Mediastinum: Mild cardiomegaly and pulmonary venous congestion. Prior median sternotomy and CABG. Prior aortic valve replacement. IMPRESSION 1. Mild cardiomegaly with pulmonary nitish ous congestion and indistinct pulmonary vasculature suggesting pulmonary edema. 2. Small pleural effusions, greater on the right, with bibasilar atelectasis. Finalized by Lavern Orozco M.D. on 11/05/2020 8:28 AM. Dictated by Lavern Orozco M.D. on 11/05/2020 8:26 AM. Performing Organization Address City/State/ZIP Code P shane Number [facility] * COVID-19 (SARS-COV-2) PCR (11/04/2020 8:41 PM CDT) COVID-19 FLOCKED SWAB [facility] (SARS-CoV-2) NASOPHARYNGEAL PCR Source COVID-19 NOT DETECTED DN-NOT DETECTED [facility] (SARS-CoV-2) Comment: PCR This assay is [...] performance characteristics have been verified by the [facility] clinical laboratory. Fact sheet for providers: https://www.fda.gov/media/4533 13/download Fact sheet for patients: https://www.fda.gov/media/5324 12/download Specimen Flocked Swab - Nasopharyngeal Performing Organization Address City/State/ZIP Code P shane Number [facility] [address] [place] [address] * FREE T4-FREE THYROXINE (11/04/2020 8:40 PM CDT) T4-Free 1.1 0.6 - 1.6 NG/DL [facility] Specimen Performing Organization Address City/State/ZIP Code P shane Number [facility] [address] [place] [address] * TYPE & CROSSMATCH (11/04/2020 8:40 PM CDT) Units Ordered 7 [facility] Crossmatch 11/07/2020,2359 [facility] Expires Record Check FOUND [facility] ABO/RH(D) O POS [facility] Antibody Screen NEG [facility] Electronic YES [facility] Crossmatch Unit Number [id number] [facility] Blood Component RBC,ADSOL,LEUKO REDUCED [facility] Type Unit Division 00 [facility] Status OF Unit TRANSFUSED [facility] ISSUE DATE TIME [id number] [facility] PRODUCT CODE [id number] [facility] BLOOD TYPE O POS [facility] CODING STATUS 5100 [facility] BLOOD [id number] [facility] EXPIRATION DATE Transfusion OK TO TRANSFUSE [facility] Status Crossmatch COMPATIBLE,ELECTRONIC [facility] Result Unit Number [id number] [facility] Blood Component RBC,ADSOL,LEUKO REDUCED [facility] Type Unit Division 00 [facility] Status OF Unit TRANSFUSED [facility] ISSUE DATE TIME [facility] PRODUCT CODE [id number] [facility] BLOOD TYPE O POS [facility] CODING STATUS 5100 [facility] BLOOD [id number] [facility] EXPIRATION DATE Transfusion OK TO TRANSFUSE [facility] Status Crossmatch COMPATIBLE,ELECTRONIC [facility] Result Unit Number [id number] [facility] Blood Component RBC,ADSOL,LEUKO REDUCED [facility] Type Unit Division 00 [facility] Status OF Unit TRANSFUSED [facility] ISSUE DATE TIME [facility] PRODUCT CODE [id number] [facility] BLOOD TYPE O POS [facility] CODING STATUS 5100 [facility] BLOOD [id number] [facility] EXPIRATION DATE Transfusion OK TO TRANSFUSE [facility] Status Crossmatch COMPATIBLE,ELECTRONIC [facility] Result Unit Number [id number] [facility] Blood Component RBC,ADSOL,LEUKO REDUCED,1ST [facility] AB Type CONT. Unit Division 00 [facility] Status OF Unit TRANSFUSED [facility] ISSUE DATE TIME [id number] [facility] PRODUCT CODE [id number] [facility] BLOOD TYPE O POS [facility] CODING STATUS 5100 [facility] BLOOD [id number] [facility] EXPIRATION DATE Transfusion OK TO [facility]SFUSE [facility] Status Crossmatch COMPATIBLE,ELECTRONIC [facility] Result Unit Number [id number] [facility] Blood Component RBC,ADSOL,LEUKO REDUCED,1ST [facility] Type CONT. Unit Division 00 [facility] Status OF Unit TRANSFUSED [facility] ISSUE DATE TIME [facility] PRODUCT CODE [id number] [facility] BLOOD TYPE O POS [facility] CODING STATUS 5100 [facility] BLOOD [id number] [facility] EXPIRATION DATE Transfusion OK TO TRANSFUSE [facility] Status Crossmatch COMPATIBLE,ELECTRONIC [facility] Result Specimen Blood,Peripheral Performing Organization Address City/[facility]/ZIP Code P shane Number [facility] [address] [place] [address] * TSH WITH FREE T4 REFLEX (11/04/2020 8:40 PM CDT) TSH 10.59 (H) 0.35 - 5.00 MCU/ML [facility] Specimen Blood Performing Organization Address City/[facility]/ZIP Code P shane Number [facility] [address] [place] [address] * BNP (B-TYPE NATRIURETIC PEPTI) (11/04/2020 8:40 PM CDT) B Type 279.0 (H) 0 - 100 PG/ML [facility] Natriuretic Peptide Specimen Blood Performing Organization Address City/State/ZIP Code P shane Number [facility] [address] [place] [address] * COMPREHENSIVE METABOLIC PANEL (11/04/2020 8:40 PM CDT) Sodium 134 (L) 137 - 147 MMOL/L [facility] Potassium 3.4 (L) 3.5 - 5.1 MMOL/L [facility] Chloride 100 98 - 110 MMOL/L [facility] Glucose 91 70 - 100 MG/DL [facility] Blood Urea 14 7 - 25 MG/DL [facility] Nitrogen Creatinine 1.00 0.4 - 1.00 MG/DL [facility] Calcium 8.1 (L) 8.5 - 10.6 MG/DL [facility] Total Protein 5.3 (L) 6.0 - 8.0 G/DL [facility] Total Bilirubin 0.9 0.3 - 1.2 MG/DL [facility] Albumin 2.9 (L) 3.5 - 5.0 G/DL [facility] Alk Phosphatase 67 25 - 110 U/L [facility] AST (SGOT) 25 7 - 40 U/L [facility] CO2 27 21 - 30 MMOL/L [facility] ALT (SGPT) 12 7 - 56 U/L [facility] Anion Gap 7 3 - 12 [facility] eGFR Non 57 (L) >60 mL/min [facility] Comment: [place] The eGFR is not validated f or use in drug dosing adjustments. Continue to use estimated creatinine clearance per dosing reference text. Please contact the Clinical Pharmacist for questions. eGFR >60 >60 mL/min [facility] [place] Comment: The eGFR is not validated for use in drug dosing adjustments. Continue to use estimated creatinine clearance per dosing reference text. Please contact the Clinical Pharmacist for questions. Specimen Blood Performing Organization Address City/State/ZIP Code P shane Number [facility] [address] [place] [address] * PROTIME INR (PT) (11/04/2020 8:40 PM CDT) INR 2.5 (H) 0.8 - 1.2 [facility] Specimen Blood Performing Organization Address City/[facility]/ZIP Code P shane Number [facility] [address] [place] [address] * CBC AND DIFF (11/04/2020 8:40 PM CDT) White Blood 6.2 4.5 - 11.0 K/UL [facility] Cells RBC 2.27 (L) 4.0 - 5.0 M/UL [facility] Hemoglobin 7.7 (L) 12.0 - 15.0 GM/DL [facility] Hematocrit 21.7 (L) 36 - 45 % [facility] MCV 95.6 80 - 100 FL [facility] MCH 33.9 26 - 34 PG [facility] MCHC 35.4 32.0 - 36.0 G/DL [facility] RDW 18.5 (H) 11 - 15 % [facility] Platelet Count 236 150 - 400 K/UL [facility] MPV 6.6 (L) 7 - 11 FL [facility] Neutrophils 83 (H) 41 - 77 % [facility] Lymphocytes 7 (L) 24 - 44 % [facility] Monocytes 7 4 - 12 % [facility] Eosinophils 2 0 - 5 % [facility] Basophils 1 0 - 2 % [facility] Absolute 5.18 1.8 - 7.0 K/UL [facility] Neutrophil Count Absolute Lymph 0.40 (L) 1.0 - 4.8 K/UL [facility] Count Absolute 0.43 0 - 0.80 K/UL [facility] Monocyte Count Absolute 0.13 0 - 0.45 K/UL [facility] Eosinophil Count Absolute 0.06 0 - 0.20 K/UL [facility] Basophil Count Specimen Blood Performing Organization Address City/[facility]/ZIP Code P shane Number [facility] [address] [place] [address] * ECG-SCAN (11/04/2020 12:00 AM CDT) Narrative [...] encounter Visit Diagnoses Diagnosis Nontraumatic rectus hematoma - Primary Nontraumatic hematoma of soft tissue Blood transfusion reaction, sequela H/O mechanical aortic valve replacement Heart valve replaced by other means Aortic valve prosthesis present Heart valve replaced by other means Chronic heart failure with preserved ej ection fraction (HCC) Chronic anticoagulation Long-term (current) use of anticoagulan ts Anemia Anemia, unspecified Severe tricuspid regurgitation Diseases of tricuspid valve Hematuria Hematuria, unspecified Vaginal bleeding Other specified noninflammatory disorde r of vagina documented in this encounter Admitting Diagnoses Diagnosis GIB (gastrointestinal bleeding) Hemorrhage of gastrointestinal tract, u nspecified documented in this encounter Administered Medications Action Date Dose Rate Site Medication Order MAR Action 11/14/2020 9:17 AM CDT 500 mg acetaminophen (TYLENOL EXTRA STRENGTH) Given tablet 500 mg 500 mg, Oral, EVERY 6 HOURS, First dos e (after last modification) on Sun 1 at 1300, Until Discontinued, TOTAL ACETAMINOPHEN DOSE NOT TO EXCEED 2GM DAILY 500 mg Given 11/14/2020 5:20 AM CDT 500 mg Given 11/13/2020 10:24 PM CDT 500 mg Given 11/13/2020 4:23 PM CDT 500 mg Given 11/13/2020 9:09 AM CDT 500 mg Given 11/13/2020 4:57 AM CDT 500 mg Given 11/12/2020 10:39 PM CDT 500 mg Given 11/12/2020 4:27 PM CDT 500 mg Given 11/12/2020 10:31 AM CDT 500 mg Given 11/12/2020 4:33 AM CDT 500 mg Given 11/11/2020 10:05 PM CDT 500 mg Given 11/11/2020 4:23 PM CDT 500 mg Given 11/11/2020 10:39 AM CDT 500 mg Given 11/11/2020 5:49 AM CDT 500 mg Given 11/10/2020 9:05 PM CDT 500 mg Given 11/10/2020 4:21 PM CDT 500 mg Given 11/10/2020 8:23 AM CDT 500 mg Given 11/10/2020 5:01 AM CDT 500 mg Given 11/09/2020 9:32 PM CDT 500 mg Given 11/09/2020 5:02 PM CDT 500 mg Given 11/09/2020 10:35 AM CDT 500 mg Given 11/09/2020 5:31 AM CDT 500 mg Given 11/08/2020 9:21 PM CDT 500 mg Given 11/07/2020 9:42 PM CDT 500 mg Given 11/05/2020 6:18 PM CDT 500 mg Given 11/05/2020 12:24 PM CDT 11/15/2020 12:18 AM CDT 500 mg acetaminophen (TYLENOL EXTRA STRENGTH) Given tablet 500 mg 500 mg, Oral, EVERY 6 HOURS PRN, Starting on Fri11/14/20 at 1000, Until Fri11/15/20 at 1927, Pain non-opioid: may be used alone or in combination wit h opioid analgesia, TOTAL ACETAMINOPHEN DOSE NOT TO EXCEED 2GM DAILY 11/05/2020 6:49 AM CDT 650 mg acetaminophen (TYLENOL) tablet 650 mg Given 650 mg, Oral, EVERY 4 HOURS PRN, Starting on 11/04/20 at 2131, Until 11/05/20 at 0935, Pain non-opioid: may be used alone or in combination wit h opioid analgesia, TOTAL ACETAMINOPHEN DOSE NOT TO EXCEED 4GM DAILY 650 mg Given 11/04/2020 10:28 PM CDT 11/15/2020 8:10 AM CDT 2 mg bumetanide (BUMEX) tablet 2 mg Given 2 mg, Oral, TWICE DAILY, First dose (after last modification) on Fri 1 at 0900, Until Discontinued 2 mg Given 11/14/2020 5:41 PM CDT 2 mg Given 11/14/2020 9:17 AM CDT 2 mg Given 11/13/2020 4:23 PM CDT 2 mg Given 11/13/2020 9:09 AM CDT 2 mg Given 11/12/2020 4:27 PM CDT 2 mg Given 11/12/2020 8:48 AM CDT 2 mg Given 11/11/2020 4:23 PM CDT 2 mg Given 11/11/2020 8:24 AM CDT 2 mg Given 11/10/2020 4:21 PM CDT 2 mg Given 11/10/2020 8:23 AM CDT 2 mg Given 11/09/2020 5:02 PM CDT 2 mg Given 11/09/2020 8:39 AM CDT 2 mg Given 11/08/2020 5:32 PM CDT 2 mg Given 11/08/2020 8:13 AM CDT 11/07/2020 4:14 PM CDT 4 mg bumetanide (BUMEX) tablet 4 mg Given 4 mg, Oral, TWICE DAILY, First dose on Fri11/07/20 at 1700, Until Discontinued 11/06/2020 4:43 AM CDT 25 mcg fentaNYL citrate PF (SUBLIMAZE) Given injection INTRA-PROCEDURE MED, Starting on Fri11/06/20 at 0443, Until Fri11/06/20 at 0443 11/05/2020 11:04 PM CDT 1,075 Units/hr 26.9 mL/hr heparin (porcine) 20,000 units/D5W 500 Dose/Rate mL infusion (std conc)(premade) Change 0-2,000 Units/hr (0-50 mL/hr) 500 mL, at 0-50 mL/hr, Intravenous, TITRATE DIRECTED , Starting on Fri11/05/20 at 1530, Until Fri11/06/20 at 0631, Weight-Based Heparin Algorithm - See separate order for Initial IV bolus (if ordered). - Initial IV infusion 15 units/kg/hr. Initial IV infusion not to exceed 1,700 units/hr. - Follow hepari n infusion scale - NO ADJUSTMENT BOLUS NOTE: This is a HIGH ALERT Medication. 975 Units/hr 24.4 mL/hr Dose/Rate Verify 11/05/2020 7:12 PM CDT 975 Units/hr 24.4 mL/hr Given - New Bag 11/05/2020 3:41 PM CDT hyoscyamine (ANASPAZ) rapid dissolve tablet 0.125 mg 0.125 mg, Sublingual, EVERY 4 HOURS PRN, Starting on Fri11/14/20 at 1628, Until Fri11/15/20 at 1927, Bladder Spasms 11/06/2020 5:51 AM CDT 95 mL iohexoL (OMNIPAQUE-300) 300 mg/mL Given injection 95 mL 95 mL, SEE ADMIN INSTRUCTIONS, ONCE, 1 dose, On Fri11/06/20 at 0600, NOTE: Thi s is a HIGH ALERT Medication. 11/15/2020 6:07 AM CDT 75 mcg levothyroxine (SYNTHROID) tablet 75 mcg Given 75 mcg, Oral, DAILY 30MIN BEFORE BREAKFAST, First dose on Fri11/05/20 at 0630, Until Discontinued, Give 1 hour before a meal. If patient is receiving tube feedings, hold tube feed 1hr befor e and 1hr after dose. 75 mcg Given 11/14/2020 8:05 AM CDT 75 mcg Given 11/13/2020 7:08 AM CDT 75 mcg Given 11/12/2020 6:11 AM CDT 75 mcg Given 11/11/2020 5:49 AM CDT 75 mcg Given 11/10/2020 7:29 AM CDT 75 mcg Given 11/09/2020 5:31 AM CDT 75 mcg Given 11/08/2020 6:30 AM CDT 75 mcg Given 11/07/2020 6:40 AM CDT 75 mcg Given 11/05/2020 6:21 AM CDT 11/06/2020 4:35 AM CDT 0.5 mg midazolam (VERSED) injection 1 mg Given 1 mg, Intravenous, ONCE, 1 dose, On Fri11/06/20 at 0345, Pre-Procedure (IR) 11/15/2020 3:39 PM CDT 5 mg oxybutynin chloride (DITROPAN) tablet 5 Given mg 5 mg, Oral, THREE TIMES DAILY, First dose on Fri11/14/20 at 1730, Until Discontinued 5 mg Given 11/15/2020 8:11 AM CDT 5 mg Given 11/14/2020 8:04 PM CDT 5 mg Given 11/14/2020 5:41 PM CDT 11/05/2020 5:23 PM CDT 5 mg oxyCODONE tablet 5 mg Given 5 mg, Oral, EVERY 6 HOURS PRN, Startin g on 11/05/20 at 0935, Until 11/05/20 at 1914, Pain PO 5 mg Given 11/05/2020 10:48 AM CDT 11/05/2020 9:54 PM CDT 10 mg oxyCODONE tablet 5-10 mg Given 5-10 mg, Oral, EVERY 6 HOURS PRN, Starting on 11/05/20 at 1914, Until Fri11/15/20 at 1927, Pain PO 11/14/2020 8:04 PM CDT [address] (PROTONIX) tablet 40 mg Given 40 mg, Oral, DAILY, First dose on 11/04/20 at 2215, Until Discontinued, Do not crush or chew tablet. 40 mg Given 11/13/2020 8:56 PM CDT 40 mg Given 11/12/2020 8:42 PM CDT 40 mg Given 11/11/2020 8:13 PM CDT 40 mg Given 11/10/2020 9:05 PM CDT 40 mg Given 11/09/2020 9:32 PM CDT 40 mg Given 11/08/2020 9:21 PM CDT 40 mg Given 11/07/2020 9:43 PM CDT 40 mg Given 11/06/2020 8:09 PM CDT 40 mg Given 11/05/2020 9:34 PM CDT 40 mg Given 11/04/2020 10:28 PM CDT 11/05/2020 1:58 AM CDT 2 mg 100 mL/hr phytonadione (VITAMIN K) 2 mg in Given - New dextrose 5% (D5W) 50 mL IVPB Bag 50 mL, Intravenous, Administer over 30 Minutes, at 100 mL/hr, ONCE, 1 dose, On 11/05/20 at 0100 11/13/2020 9:09 AM CDT 30 mEq potassium chloride SR (K-DUR) tablet 30 Given mEq 30 mEq, Oral, ONCE, 1 dose, On 11/13/20 at 0730, - Tablet may be dispersed in water. Place tab in 30 mL of water for 40-60 seconds. - Gently swirl until fully dispersed. If particles remain after admin, add small amount of water and admin remaining content. - DO NOT CRUSH. Tablet may be split in half. Give with meal or full glass of water 11/13/2020 12:01 PM CDT 30 mEq potassium chloride SR (K-DUR) tablet 30 Given mEq 30 mEq, Oral, ONCE, 1 dose, On 11/13/20 at 1115, - Tablet may be dispersed in water. Place tab in 30 mL of water for 40-60 seconds. - Gently swirl until fully dispersed. If particles remain after admin, add small amount of water and admin remaining content. - DO NOT CRUSH. Tablet may be split in half. Give with meal or full glass of water 11/04/2020 10:28 PM CDT 40 mEq potassium chloride SR (K-DUR) tablet 40 Given mEq 40 mEq, Oral, ONCE, 1 dose, On 11/04/20 at 2145, - Tablet may be dispersed in water. Place tab in 30 mL of water for 40-60 seconds. - Gently swirl until fully dispersed. If particles remain after admin, add small amount of water and admin remaining content. - DO NOT CRUSH. Tablet may be split in half. Give with meal or full glass of water 11/14/2020 9:16 AM CDT 40 mEq potassium chloride SR (K-DUR) tablet 40 Given mEq 40 mEq, Oral, ONCE, 1 dose, On Fri11/14/20 at 0800, - Tablet may be dispersed in water. Place tab in 30 mL of water for 40-60 seconds. - Gently swirl until fully dispersed. If particles remain after admin, add small amount of water and admin remaining content. - DO NOT CRUSH. Tablet may be split in half. Give with meal or full glass of water 11/15/2020 9:14 AM CDT 40 mEq potassium chloride SR (K-DUR) tablet 40 Given mEq 40 mEq, Oral, ONCE, 1 dose, On Fri11/15/20 at 0930, - Tablet may be dispersed in water. Place tab in 30 mL of water for 40-60 seconds. - Gently swirl until fully dispersed. If particles remain after admin, add small amount of water and admin remaining content. - DO NOT CRUSH. Tablet may be split in half. Give with meal or full glass of water 11/11/2020 8:25 AM CDT 60 mEq potassium chloride SR (K-DUR) tablet 60 Given mEq 60 mEq, Oral, ONCE, 1 dose, On 11/11/20 at 0745, Do NOT break or crush tablet Give with meal or full glass of water 11/15/2020 6:31 AM CDT 10 mg prochlorperazine maleate (COMPAZINE) Given tablet 10 mg 10 mg, Oral, EVERY 6 HOURS PRN, Starting on Fri11/06/20 at 1525, Until Fri11/15/20 at 1927, Nausea/Vomiting PO 10 mg Given 11/13/2020 9:09 AM CDT 10 mg Given 11/10/2020 9:17 AM CDT 10 mg Given 11/10/2020 2:22 AM CDT 10 mg Given 11/08/2020 12:40 AM CDT 10 mg Given 11/07/2020 7:44 AM CDT 10 mg Given 11/06/2020 4:08 PM CDT 11/15/2020 8:11 AM CDT 100 mg sertraline (ZOLOFT) tablet 100 mg Given 100 mg, Oral, DAILY, First dose on 11/04/20 at 2030, Until Discontinued 100 mg Given 11/14/2020 9:17 AM CDT 100 mg Given 11/13/2020 9:09 AM CDT 100 mg Given 11/12/2020 8:48 AM CDT 100 mg Given 11/11/2020 8:24 AM CDT 100 mg Given 11/10/2020 8:23 AM CDT 100 mg Given 11/09/2020 8:39 AM CDT 100 mg Given 11/08/2020 8:13 AM CDT 100 mg Given 11/07/2020 8:01 AM CDT 100 mg Given 11/06/2020 8:37 AM CDT 100 mg Given 11/05/2020 8:56 AM CDT 100 mg Given 11/04/2020 8:38 PM CDT 11/06/2020 3:36 AM CDT 1,000 mL 999 mL/hr sodium chloride 0.9 % infusion Given - New 1,000 mL, 1,000 mL, Intravenous, at 999 Bag mL/hr, BOLUS, 1 dose, On Fri11/06/20 at 0345 11/06/2020 4:50 AM CDT 1,000 mL 200 mL/hr sodium chloride 0.9 % infusion Given - New INTRA-PROCEDURE MED(CONT), Starting on Bag Fri11/06/20 at 0450, Until Fri11/06/20 at 0450 11/05/2020 9:37 PM CDT 200 mg Arm, Rig ht trimethobenzamide (TIGAN) injection 200 Given mg 200 mg, Intramuscular, EVERY 6 HOURS PRN, Starting on Fri11/05/20 at 0930, Until Fri11/15/20 at 1927, Nausea/Vomiting Injectable 11/13/2020 8:56 PM CDT 4 mg warfarin (COUMADIN) tablet 4 mg Given 4 mg, Oral, AT BEDTIME DAILY, First dos e on Fri11/11/20 at 2100, Until Discontinued, Discussed with Cardiology and Hematology, will treat to target IN R of 1.6-2.0, and will NOT bridge. NURSING: Provide patient with warfarin education leaflet. Do not give with cranberry juice. NOTE: This is a HIGH ALERT Medication. 4 mg Given 11/12/2020 8:42 PM CDT 4 mg Given 11/11/2020 8:13 PM CDT warfarin (COUMADIN) tablet 4 mg 4 mg, Oral, FIVE TIMES WEEKLY (Once per day on Fri), First dose (after last modification) on Fri 1 at 2100, Until Discontinued, NURSING: Provide patient with warfarin education leaflet. Do not give with cranberry juice. NOTE: This is a HIGH ALERT Medication. 11/14/2020 8:04 PM CDT 5 mg warfarin (COUMADIN) tablet 5 mg Given 5 mg, Oral, AT BEDTIME DAILY, First dos e on Fri11/14/20 at 2100, Until Discontinued, NURSING: Provide patient with warfarin education leaflet. Do not give with cranberry juice. NOTE: This i s a HIGH ALERT Medication. warfarin (COUMADIN) tablet 5 mg 5 mg, Oral, TWO TIMES WEEKLY (Once per day on Fri), First dose (after last modification) on Fri11/18/20 at 2100, Until Discontinued, NURSING: Provide patient with warfarin education leaflet . Do not give with cranberry juice. NOTE: This is a HIGH ALERT Medication. warfarin, pharmacy to manage PER PHARMACY, 999 doses, Starting on 11/11/20 at 2004, Until Fri11/15/20 at 192, Warfarin Indication: Prosthetic cardiac valve, INR Goal: INR (specify i n comment), This order is for informational use only. See separate order for administration and documentation of warfarin. NOTE: This i s a HIGH ALERT Medication. documented in this encounter Discontinued Medications Start Date End Date Medication Sig Discontinue Reason 11/05/2020 promethazine (PHENERGAN) Take 25 mg Removed from 25 mg tablet by mouth as [employer] Med List Needed for Nausea or Vomiting. 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 dyspepsia, Indications: gastroesophageal reflux indigestion, disease, heartburn, upper gastroesopha GI bleed geal reflux disease, heartburn, bleeding from stomach, esophagus or duodenum 11/15/2020 ondansetron (ZOFRAN) 4 mg Take 4 mg by tablet mouth every 8 hours as needed for Nausea or Vomiting. 08/14/2020 11/15/2020 metOLazone (ZAROXOLYN) Take one 2.5 mg tabletIndications: tablet by Chronic heart failure mouth twice with preserved ejection weekly. Take fraction (HCC) on Friday and Friday. When directed, take 30-60 minutes prior to your Bumex. 10/26/2020 11/15/2020 warfarin (COUMADIN) 5 mg Take one tablet tablet by mouth daily. Take as directed by physician managing INR. 10/26/2020 11/15/2020 enoxaparin (LOVENOX) 60 Inject 0.6 mg syringe mL under the skin every 12 hours. 10/26/2020 11/15/2020 bumetanide (BUMEX) 1 mg Take three Reorder tablet tablets by mouth twice daily. 11/15/2020 11/15/2020 warfarin (COUMADIN) 1 mg Take one Reorder tablet tablet by mouth daily. Take four tablets by mouth daily to equal 4 mg dose daily. documented as of this encounter Historical Medications * This list may reflect changes made after this encounter. Start Date End Date Medication Sig Dispensed Refills 12/01/2020 [facility]raz[facility] Take 40 mg by 0 40 mg capsule mouth twice daily. added in this encounter Active and Recently Administered Medications Times are shown in CDT. 11/14/2020 11/15/2020 Medication Order 11/13/2020 0520 (Given - Provider: Satish Mcmanus RN)0917 (Given - Provider: Elizabeth Arredondo RN) acetaminophen (TYLENOL EXTRA STRENGTH) 0457 (Given - tablet 500 mg (CANCELED) Provider: Satish 500 mg, Oral, EVERY 6 HOURS, First dose CHRYSTAL Mcmanus)0 909 (after last modification) on Fri11/05/20 (Given - Pr ovider: at 1300, Until Discontinued, TOTAL Jennifer Simmons , ACETAMINOPHEN DOSE NOT TO EXCEED 2GM RN)1623 (Given - DAILY Provider: Jennifer Simmons RN)2224 (Given - Provider: Satish Mcmanus RN) 0917 (Given - Provider: Elizabeth Arredondo RN)1741 (Given - Provider: Elizabeth Arredondo RN) 0810 (Given - Provider: Elizabeth Arredondo RN)1700 (Due) bumetanide (BUMEX) tablet 2 mg 0909 (Given - 2 mg, Oral, TWICE DAILY, First dose Provider: Akhil ma (after last modification) on Fri11/08/20 CHRYSTAL Simmons )1623 at 0900, Until Discontinued (Given - Provider: Jennifer Simmons RN) 0805 (Given - Provider: Satish Mcmanus RN) 0607 (Given - Provider: Jojo Mcelroy) levothyroxine (SYNTHROID) tablet 75 mcg 0708 (Given - 75 mcg, Oral, DAILY 30MIN BEFORE Provider: Deepthi VALDES, First dose on Fri11/05/20 at CHRYSTAL Colon) 0630, Until Discontinued, Give 1 hour before a meal. If patient is receiving tube feedings, hold tube feed 1hr befor e and 1hr after dose. 174 (Given - Provider: Elizabeth Arredondo RN)2003 (Given - Provider: Elizabeth Stafford RN) 08 (Given - Provider: Elizabeth Arredondo RN)1539 (Given - Provider: Elizabeth Arredondo RN) oxybutynin chloride (DITROPAN) tablet 5 mg 5 mg, Oral, THREE TIMES DAILY, First dose on Fri11/14/20 at 1730, Until Discontinued 2003 (Given - Provider: Jojo Mcelroy) pantoprazole DR (PROTONIX) tablet 40 mg 2056 (Given - 40 mg, Oral, DAILY, First dose on Sat Provider: Pau wilcox 11/04/20 at 2215, Until Discontinued, Do Yonathan RN) not crush or chew tablet. potassium chloride SR (K-DUR) tablet 30 908 (Given - mEq (COMPLETED) Provider: Jennifer 30 mEq, Oral, ONCE, 1 dose, On [facility] CHRYSTAL Simmons) 11/13/20 at 0730, - Tablet may be dispersed in water. Place tab in 30 mL of water for 40-60 seconds. - Gently swirl until fully dispersed. If particles remain after admin, add small amount of water and admin remaining content. - DO NOT CRUSH. Tablet may be split in half. Give with meal or full glass of water potassium chloride SR (K-DUR) tablet 30 120 (Given - mEq (COMPLETED) Provider: Jennifer 30 mEq, Oral, ONCE, 1 dose, On Mon CHRYSTAL Simmons) 11/13/20 at 1115, - Tablet may be dispersed in water. Place tab in 30 mL of water for 40-60 seconds. - Gently swirl until fully dispersed. If particles remain after admin, add small amount of water and admin remaining content. - DO NOT CRUSH. Tablet may be split in half. Give with meal or full glass of water 0916 (Given - Provider: Elizabeth Arredondo RN) potassium chloride SR (K-DUR) tablet 40 mEq (COMPLETED) 40 mEq, Oral, ONCE, 1 dose, On Fri11/14/20 at 0800, - Tablet may be dispersed in water. Place tab in 30 mL of water for 40-60 seconds. - Gently swirl until fully dispersed. If particles remain after admin, add small amount of water and admin remaining content. - DO NOT CRUSH. Tablet may be split in half. Give with meal or full glass of water 0914 (Given - Provider: Elizabeth Arredondo RN) potassium chloride SR (K-DUR) tablet 40 mEq (COMPLETED) 40 mEq, Oral, ONCE, 1 dose, On Fri11/15/20 at 0930, - Tablet may be dispersed in water. Place tab in 30 mL of water for 40-60 seconds. - Gently swirl until fully dispersed. If particles remain after admin, add small amount of water and admin remaining content. - DO NOT CRUSH. Tablet may be split in half. Give with meal or full glass of water 916 (Given - Provider: Elizabeth Arredondo, RN) 08 (Given - Provider: Elizabeth Arredondo, CHRYSTAL) sertraline (ZOLOFT) tablet 100 mg 908 (Given - 100 mg, Oral, DAILY, First dose on Fri Provider: Og waller 11/04/20 at 2030, Until Discontinued CHRYSTAL Simmons) warfarin (COUMADIN) tablet 4 mg 2055 (Given - (CANCELED) Provider: Satish 4 mg, Oral, AT BEDTIME DAILY, First dose CHRYSTAL Mcmanus) on Fri11/11/20 at 2100, Until Discontinued, Discussed with Cardiology and Hematology, will treat to target IN R of 1.6-2.0, and will NOT bridge. NURSING: Provide patient with warfarin education leaflet. Do not give with cranberry juice. NOTE: This is a HIGH ALERT Medication. warfarin (COUMADIN) tablet 4 mg 4 mg, Oral, FIVE TIMES WEEKLY (Once per day on Fri), First dose (after last modification) on Fri at 2100, Until Discontinued, NURSING: Provide patient with warfarin education leaflet. Do not give with cranberry juice. NOTE: This is a HIGH ALERT Medication. 2003 (Given - Provider: Jojo Mcelroy) warfarin (COUMADIN) tablet 5 mg (CANCELED) 5 mg, Oral, AT BEDTIME DAILY, First dos e on Fri11/14/20 at 2100, Until Discontinued, NURSING: Provide patient with warfarin education leaflet. Do not give with cranberry juice. NOTE: This i s a HIGH ALERT Medication. warfarin (COUMADIN) tablet 5 mg 5 mg, Oral, TWO TIMES WEEKLY (Once per day on Fri), First dose (after last modification) on Fri11/18/20 at 2100, Until Discontinued, NURSING: Provide patient with warfarin education leaflet . Do not give with cranberry juice. NOTE: This is a HIGH ALERT Medication. 11/14/2020 11/15/2020 Medication Order 11/13/2020 0018 (Given - Provider: Jojo Mcelroy) acetaminophen (TYLENOL EXTRA STRENGTH) tablet 500 mg 500 mg, Oral, EVERY 6 HOURS PRN, Starting on Fri11/14/20 at 1000, Until Fri11/15/20 at 1927, Pain non-opioid: may be used alone or in combination wit h opioid analgesia, TOTAL ACETAMINOPHEN DOSE NOT TO EXCEED 2GM DAILY hyoscyamine (ANASPAZ) rapid dissolve tablet 0.125 mg 0.125 mg, Sublingual, EVERY 4 HOURS PRN, Starting on Tu11/14/20 at 1628, Until Fri11/15/20 at 192, Bladder Spasms oxyCODONE tablet 5-10 mg 5-10 mg, Oral, EVERY 6 HOURS PRN, Starting on Fri11/05/20 at 1914, Until Fri11/15/20 at 192, Pain PO 0631 (Given - Provider: Jojo Mcelroy) prochlorperazine maleate (COMPAZINE) 0909 (Given - tablet 10 mg Provider: Jennifer 10 mg, Oral, EVERY 6 HOURS PRN, CHRYSTAL Simmons) Starting on Fri11/06/20 at 1525, Until Fri11/15/20 at 192, Nausea/Vomiting PO trimethobenzamide (TIGAN) injection 200 mg 200 mg, Intramuscular, EVERY 6 HOURS PRN, Starting on Fri11/05/20 at 0930, Until Fri11/15/20 at 192, Nausea/Vomiting Injectable warfarin, pharmacy to manage PER PHARMACY, 999 doses, Starting on 11/11/20 at 2004, Until Fri11/15/20 at 192, Warfarin Indication: Prosthetic cardiac valve, INR Goal: INR (specify i n comment), This order is for informational use only. See separate order for administration and documentation of warfarin. NOTE: This i s a HIGH ALERT Medication. documented in this encounter Orders First Ordered Date Medications Ordered That Might Not Have Count Last Ordered Date Been Administered warfarin (COUMADIN) tablet 4 mg 2 2020 warfarin (COUMADIN) tablet 5 mg 2 2020 hyoscyamine (ANASPAZ) rapid dissolve 1 0 11/14/2020 tablet 0.125 mg warfarin, pharmacy to manage 1 heparin (porcine) 20,000 units/D5W 500 1 11/05/2020 mL infusion (std conc)(premade) heparin (porcine) BOLUS for continuous 11/05/2020 inf (bag) 1,300-2,600 Units heparin (porcine) initial BOLUS for 1 continuous inf (bag) 5,200 Units cefTRIAXone (ROCEPHIN) IVP 1 g 1 021 pantoprazole (PROTONIX) injection 40 mg 1 11/04/2020 pantoprazole (PROTONIX) injection 80 mg 1 11/04/2020 pantoprazole(#) (PROTONIX) suspension 40 1 11/04/2020 mg phytonadione (VITAMIN K) 5 mg in 1 11/04 dextrose 5% (D5W) 50 mL IVPB First Ordered Date Lab Orders Without Results Count Last Ordere d Date PROTIME INR (PT) 1 11/15/2020 11/06/2020 PREPARE RBC'S 4 11/07/2020 First Ordered Date EKG Orders Without Results Count Last Ordere d Date 11/04/2020 ECG 12-LEAD 2 11/07/2020 First Ordered Date Diet Count Last Ordered Date DISCHARGE DIET CARDIAC 1 11/15/2020 First Ordered Date Nursing Count Last Ordered Date DISCHARGE ACTIVITY NORMAL 1 11/15/2020 DISCHARGE CONTACT 1 11/15/2020 DISCHARGE SIGNS/SYMPTOMS 1 11/15/2020 DISCHARGE WARFARIN EDUCATION 1 1 STRAIGHT CATH 2 11/08/2020 11/04/2020 VITAL SIGNS FOR TRANSFUSION 6 11/07/2020 WEIGH PATIENT 1 11/05/2020 First Ordered Date Consult Count Last Ordered Date CONSULT HEMATOLOGY PHYSICIAN 1 1 CONSULT UROLOGY PHYSICIAN 1 11/09/2020 CONSULT CARDIOLOGY PHYSICIAN 1 1 CONSULT INTERVENTIONAL RADIOLOGY 1 11/05 PHYSICIAN First Ordered Date OT Count Last Ordered Date OT CONSULT OCCUPATIONAL THERAPY 1 2020 First Ordered Date PT Count Last Ordered Date 11/06/2020 PT CONSULT PHYSICAL THERAPY 2 11/08/2020 First Ordered Date Admission Count Last Ordered Date ADMIT TO INPATIENT (NO BED REQUEST) 1 First Ordered Date Discharge Count Last Ordered Date DISCHARGE PATIENT NOW 1 11/15/2020 First Ordered Date Equipment Count Last Ordered Date HEATING, MACHINE AK WITH PAD 1 1 PUMP IV CONTROL UNIT W/MODULES 1 021 First Ordered Date Vital Signs Count Last Ordered Date VITAL SIGNS 1 11/04/2020 First Ordered Date Activity Count Last Ordered Date MOBILITY 1 11/04/2020 First Ordered Date Order Set Communication Count Last Ordered D ate VTE DRUG PROPHYLAXIS CONTRAINDICATED 1 0 11/04/2020 First Ordered Date Appointment Request Count Last Ordered Date APPOINTMENT REQUEST: CARDIOLOGY HEART 1 11/15/2020 FAILURE First Ordered Date Intake & Output Count Last Ordered Date INTAKE AND OUTPUT 1 11/04/[address] & Maintain Count Last Ordered Date PLACE AND MAINTAIN SCD 1 11/04/2020 First Ordered Date DME/Home Health Count Last Ordered Date HOME HEALTH/DME 1 11/15/2020 First Ordered Date ADT Patient Update Count Last Ordered Date CHANGE SERVICE / LEVEL OF CARE (NO BED 1 11/05/2020 REQUEST) documented in this encounter Additional Health Concerns Assessment Noted Time A fall risk assessment has been completed for the pat ient 11/15/2020 8:15 AM CDT PHQ-2 Depression Total Score: 0 08/24/2020 7:42 AM CDT documented as of this encounter
--- OUTSIDE RECORDS SUMMARY | 2020-12-13 12:04 | XMS REPORT | Encounter Summary ---
Author Author [facility] Organization [facility] Address Unknown Phone Unavailable Care Team Providers Care Store Manager Name Role Phone Isaac, Garfield OLVERA PCP Riley Hopson MD 3 Encounter Details Care Team Description Date Type Department Allison Marti MD [address] [facility] [id number] [place], [place] [id number] Iron deficiency anemia due to chronic bl ood loss (Primary Dx); Hepatic cirrhosis, unspecified hepatic cirrhosis type, unspecified whether ascites present (HCC) 10/30/2020 Orders Only Hepatology: Main Ca mpus, 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 [facility] On track (10/23/2020 Yes Sheldon, 1:06 PM CDT) CHRYSTAL Singh documented as of this encounter Results * PROTIME INR (PT) (10/30/2020) INR 1.6 [facility] Specimen Blood - Blood Narrative Performed At This result has an attachment that is n ot available. Performing Organization Address City/State/ZIP Code P shane Number MAIN LAB [address] [place] [address] documented in this encounter Visit Diagnoses Diagnosis [...]
--- OUTSIDE RECORDS SUMMARY | 2020-12-13 12:04 | XMS REPORT | Encounter Summary ---
Author Author [facility] Organization [facility] Address Unknown Phone Unavailable Care Team Providers Care Business Development Representative Name Role Phone Self, Garfield OLVERA PCP Riley Hopson MD 3 Reason for Visit * Reason Onset Date Comments Appointment Request 11/08/2020 Encounter Details Care Team Description Date Type Department Allison Marti MD [address] [facility] [id number] [place] [address] Appointment Request 11/08/2020 Telephone Transplant: Main Ca mpus, [facility] [address] [facility] [address] [place] [address] Social History Date Tobacco Use Types Packs/Day Years Used Never Smoker Smokeless Tobacco: Never Used Comments Alcohol Use Standard Drinks/Week Not Currently 0 (1 standard drink = 0.6 o z pure alcohol) Sex Assigned at Date Recorded 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 Marti to 11/22 6 w/ Jeanette Garcia APRN in [employer] message and [employer] message. documented in this encounter Plan of Treatment Not on filedocumented as of this encounter Goals Goal Patient Associated Recent Progress Patient-Stat Aut hor Goal Type Problems ed? [facility] On track (10/23/2020 Yes Sheldon, 1:06 PM CDT) CHRYSTAL Singh documented as of this encounter Visit Diagnoses Not on filedocumented in this encounter Additional Health Concerns Assessment Noted Time A fall risk assessment has been completed for the pat ient 11/08/2020 9:21 PM CDT PHQ-2 Depression Total Score: 0 08/24/2020 7:42 AM CDT documented as of this encounter
--- OUTSIDE RECORDS SUMMARY | 2020-12-13 12:04 | XMS REPORT | Encounter Summary ---
Author Author [facility] Organization [facility] Address Unknown Phone Unavailable Care Team Providers Care Construction Project Administrator Name Role Phone Self, Garfield OLVERA PCP Riley Hopson MD 3 Reason for Visit * Reason Comments Labs Only Encounter Details Care Team Description Date Type Department Kathryn Barbosa MA Labs Only 10/30/2020 Documentation Cardiology: [facility] 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 [facility] On track (10/23/2020 Yes Sheldon, 1:06 PM CDT) CHRYSTAL Singh documented as of this encounter Procedures Comments Procedure Name Priority Date/Time Associated Diag nosis PROTIME INR (PT) Routine 10/30/2020 Hepatic cirrh osis, unspecified hepatic cirrhosis type, unspecified whether ascites present (HCC) documented in this encounter Results * PROTIME INR (PT) (10/30/2020) INR 1.6 [facility] Specimen Blood - Blood Narrative Performed At This result has an attachment that is n ot available. Performing Organization Address City/State/ZIP Code P shane Number [facility] [address] [place] [address] documented in this encounter Visit Diagnoses Diagnosis Hepatic cirrhosis, unspecified hepatic cirrhosis type, unspecified whether ascites present (HCC) documented in this encounter Additional Health Concerns Assessment Noted Time A fall risk assessment has been completed for the pat ient 10/26/2020 8:00 AM CDT PHQ-2 Depression Total Score: 0 08/24/2020 7:42 AM CDT documented as of this encounter
--- OUTSIDE RECORDS SUMMARY | 2020-12-13 12:05 | XMS REPORT | Encounter Summary ---
Author Author [facility] Organization [facility] Address Unknown Phone Unavailable Care Team Providers Care Clinical Lab Specialist Name Role Phone Isaac, Garfield OLVERA PCP Riley Hopson MD 3 Reason for Visit * Auth/Cert Referred By Contact Referred To Contact Status Reason Specialty Diagnoses / Procedures Diagnoses Chronic heart failure with preserved ejection fraction (HCC) Procedures [place] UNLISTED CARDIOVASCULAR SERVICE/PROCEDURE CATHETERIZATION RIGHT HEART WITH INSERTION PULMONARY ARTERY SENSOR Encounter Details Care Team Description Date Type Department Riley Caraballo MD [address] [id number] Christal Perez MD [address] [address] [phone] 10/21/2020 Anesthesia Endoscopy: Main Cam pus, Event Main [facility] [address] [facility] [place] [address] Anesthesia Record Responsible Anesthesiologist Anesthesia Start Time Anesthesi a Stop Time Procedure Name Riley Caraballo MD 10/21/20223210/22/20 0011 ESOPHAGOGASTRODUODENOSCOP Y WITH SPECIMEN COLLECTION BY BRUSHING/ WASHING (N/A ) Date Time Event Comment 2027 AN Equip Check 223 Out of Pre Procedure 223 In Room 223 Anes Start 2232 An Start Data 2237 An Induction The patient was ree valuated immediately before moderate or deep sedation use and before anesthesia induction. 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 Most recent Hgb 6.6 10/21/ AM) Constitution - negative Physical Exam Airway [...] Blood Consent: consented Plan discussed with: anesthesiologist, RANGE AIDE and resident. Comments: (TTE 10/21/20: 1. Normal [...] [facility] On track (10/23/2020 Yes Sheldon, 1:06 [...]
--- OUTSIDE RECORDS SUMMARY | 2020-12-13 12:05 | XMS REPORT | Encounter Summary ---
Author Author [facility] Organization [facility] Address Unknown Phone Unavailable Care Team Providers Care Casket Assembler Name Role Phone Self, Garfield OLVERA PCP Riley Hopson MD 3 Reason for Referral * Consultation (Discharge Pending) Referred By Contact Referred To Contact Status Reason Specialty Diagnoses / Procedures Shruti Newberry PA-C [address] [place] [address] [id number] [place] [address] [facility] 4000 [facility] 1, [address] [place] [address] Pending Review Cardiology Procedures APPOINTMENT REQUEST: CARDIOLOGY HEART FAILURE Electronically signed by Shruti Newberry PA-C at Reason for Visit * Auth/Cert Referred By Contact Referred To Contact Status Reason Specialty Diagnoses / Procedures Diagnoses Chronic heart failure with preserved ejection fraction (HCC) Procedures [place] UNLISTED CARDIOVASCULAR SERVICE/PROCEDURE CATHETERIZATION RIGHT HEART WITH INSERTION PULMONARY ARTERY SENSOR Encounter Details Care Team Description Date Type Department Nadege Davis MD [address] [address] [phone] Vijaya Millard MD 4000 [place] [address] [phone] Duyen Arroyo DO 4000 [place] [address] [phone] GI bleeding 10/20/2020 Hospital Patient Care Unit H C7: - [facility]counter [facility] 10/26/2020 Care 4000 [facility]. 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 Patient is [...] [facility] ([facility] Exam) [address] [place] [address] 1, [address] [place] [phone] Nov 15, 2020 2:15 PM (Arrive by 2:00 PM) Procedure with [facility] Laboratory: [facility] (--) [address] [place] [phone] Nov 15, 2020 2:30 PM Return Patient with HOSSEIN Santo Cardiology: [facility] (CVM Exam) [address] [phone] Dec 19, 2020 12:00 PM Return Patient with Allison Marti MD Transplant: [facility] (CFT [facility]) 4000 [facility] Level 1, [address] [facility] [address] Consults, Procedures, Diagnostics, Micro, Pathology Consults: Cardiology and Hepatology Surgical Procedures & Dates: None Significant Diagnostic Studies, Micro and Procedures: noted in brief hospital co urse Significant Pathology: noted in brief hospital course Nutrition: Dietitian Documentation Muscle Wasting: Yes Moderate Clavicle, Mormon Edema: No Discharge Disposition, Condition Patient Disposition: Home Condition at Discharge: Stable Code Status Code Status History Date Active Date Inactive Code Status Order ID 10/20/2020 [id number] 10/26/2020 1253 Full Code [id number] Vijaya Millard MD Inpatient 10/20/2020 0846 10/20/2020 1221 Full Code [id number] Crissy Gould PA-C I npatient Only showing the last 2 code statuses. Patient Instructions PROTIME INR (PT) Standing Status: Future Standing Exp. Date: 10/26/21 Which provider would you like to CC? SHRUTI NEWBERRY [[id number]] Release to patient Immediate BASIC METABOLIC PANEL Standing Status: Future Standing Exp. Date: 10/26/21 Which provider would you like to CC? SHRUTI NEWBERRY [[id number]] Release to patient Immediate Cardiac Diet Limiting [...] To register for smoking cessation program call [phone] or visit www.smokefree.gov Diabetes Risk Goal: Non-diabetic: [...] you can call a conchita carmona at [phone] Physical Activity Risk Goal: Patients should have approval by a physician prior to beginning an exercis e program. Plan: Try to get at least 30 minutes of moderate physical activity five days a w tetlin or 20 minutes of vigorous physical activity three days a week with your doct or's approval. To the Neurology and the NeuroSurg Discharge order sets set add a new order in t he education section titled "Risk Reduction Plan", in the comments section add t jossy following (default select this new order for neuro and neuro surg and ensure this information is added to the AVS). Questions About Your Stay For questions or concerns regarding your hospital stay: - DURING BUSINESS HOURS (8:00 AM - 4:30 PM): Call [phone] and asked to be transferred to your discharge attending physic mg. - AFTER BUSINESS HOURS (4:30 PM - 8:00 AM, on weekends, or holidays): Call [phone] and ask the staining machine operator to page the on-call doctor for the discha rge attending physician. Discharging attending physician: NADEGE DAVIS [[id number]] Procedure Specific Activity *Resume your normal activity in 2 days. Incision Care *Call if there is an increase in pain, swelling, or redness. *DO NOT soak incision in water. *NO tub baths, hot tubs, or swimming. *You may shower after discharge. Testing Not Required for Covid-19 Questions About Your Stay For questions or concerns regarding your hospital stay, call [phone]. Discharging attending physician: DUYEN ARROYO [[id number]] Appointment Request: Cardiology Heart Failure Please arrange [...] be scheduled outside of 7 day wi , if unavailable) Expected date of discharge: 10/26/20 Ordering Provider's or Responsible Teams's Pager #? [phone] Additional Orders: Case Management, Supplies, Home Health Home Health/DME None Signed: Duyen Arroyo DO 10/26/2020 cc: Primary Care Physician: Garfield Gray Referring physicians: Nithya Madison, APR* Additional provider(s): Did we miss something? If additional records are needed, please fax a request on office letterhead to [phone]. Please include the patient's name, date of b irth, fax number and type of information needed. Additional request can be made by email at [email or web address]. For general questions of information about electronic records sharing, call [phone]. documented in this encounter Medications at Time [...] by mouth daily 30 minutes before breakfast. potassium chloride SR Take 20 mEq 0 (K-DUR) 20 mEq tablet by mouth twice daily. Take with a meal and a full glass of water. 03/22/2020 VASCEPA 1 gram capsule TAKE 2 0 CAPSULES BY MOUTH TWICE DAILY WITH MEALS 10/26/2020 11/15/2020 bumetanide (BUMEX) 1 mg Take three 180 tablet 0 tablet tablets by mouth twice daily. 10/26/2020 11/15/2020 enoxaparin (LOVENOX) 60 Inject 0.6 mL 14 each 0 mg syringe under the skin every 12 hours. 08/14/2020 11/15/2020 metOLazone (ZAROXOLYN) Take one 40 tablet 1 2.5 mg tabletIndications: tablet by Chronic heart failure mouth twice with preserved ejection weekly. Take fraction (HCC) on Friday and Friday. When directed, take 30-60 minutes prior to your Bumex. 11/15/2020 ondansetron (ZOFRAN) 4 mg Take 4 mg by 0 tablet mouth every 8 hours as needed for Nausea or Vomiting. 06/12/2020 11/05/[address] Take one 90 tablet 0 (PROTONIX) 40 mg tablet by tabletIndications: mouth daily. dyspepsia, Indications: gastroesophageal reflux indigestion, disease, heartburn, upper gastroesophag GI bleed eal reflux disease, heartburn, bleeding from stomach, esophagus or duodenum 11/05/2020 promethazine (PHENERGAN) Take 25 mg by 0 25 mg tablet mouth as Needed for Nausea or Vomiting. 12/04/2020 sertraline (ZOLOFT) 100 Take 100 mg 0 mg tablet by mouth daily. 10/26/2020 11/15/2020 warfarin (COUMADIN) 5 mg Take one 90 tablet 0 tablet tablet by mouth daily. Take as directed by physician managing INR. documented as of this encounter Ordered Prescriptions Start Date End Date Prescription Sig Dispensed Refills 10/26/2020 11/15/2020 enoxaparin (LOVENOX) 60 Inject 0.6 mL 14 each 0 mg syringe under the skin every 12 hours. 10/26/2020 11/15/2020 warfarin (COUMADIN) 5 mg Take one 90 tablet 0 tablet tablet by mouth daily. Take as directed by physician managing INR. 10/26/2020 11/15/2020 bumetanide (BUMEX) 1 mg Take three 180 [...] follow up/discharge instructions, occurred wi th patient [id number]. Duyen Arroyo DO 10/26/2020 Discharge Planning: greater than 30 minutes spent in pt dc care today spent coun seling pt, coordinating dc care, placing dc orders and helping complete dc summa ry. * Elizabeth Stafford RN - 10/26/2020 6:18 AM CDT Heart [...] 60%/RV failure, severe TR, Cirrhosis, nonischemic cardiomyopathy ([facility] 05/2020 no CAD), Mechanical aortic valve implanted [...] mg po bid starting 10/26/20 (ordere d). SLEEVE BASTER she has been taking Bumetanide 5 mg [...] 10/24/2020. INR 1.8 on 10/24/20. 5. Recommend Cargo Vessel Stewardess consultation to discuss sodium restricted diet as [...] Shruti Newberry PA-C Department of Cardiovascular Medicine [facility] Available on Voalte/AMS/Pager [phone] Assessment: Acute on Chronic diastolic HFpEF, EF: 60% NYHA class III, ACC Stage C/predomina ntly RV failure Major Complications or Comorbidities (DETENTION): acute/ acute on chronic systolic and /or [...] kg (132 lb 6.4 oz) Recommendations: GDMT SLEEVE BASTER Changes BB Lopressor 12.5 mg twice daily -10/23 did not receive PM dose 8/3 Am dose held. BB discontinued due to [...] 06/06/2020 Performed by Bao Hernández MD at [facility] COLONOSCOPY DIAGNOSTIC WITH SPECIMEN COLLECTION BY BRUSHING/ WASHING - FLEXI BLE N/A 06/06/2020 Performed by Bao Hernández MD at [facility] ANGIOGRAPHY CORONARY ARTERY WITH RIGHT AND LEFT HEART CATHETERIZATION N/A Performed by Higinio Clarke MD at [facility] OUTSOLE CEMENTER POSSIBLE PERCUTANEOUS CORONARY STENT PLACEMENT WITH ANGIOPLASTY N/A Performed by Higinio Clarke MD at [facility] OUTSOLE CEMENTER ESOPHAGOGASTRODUODENOSCOPY WITH SPECIMEN COLLECTION BY BRUSHING/ WASHING N/A 10/21/2020 Performed by Cosmo Gomez MD at [facility] SIGMOIDOSCOPY WITH CONTROL OF BLEEDING - FLEXIBLE N/A 10/21/2020 Performed by Cosmo Gomez MD at [facility] SIGMOIDOSCOPY WITH DIRECTED SUBMUCOSAL INJECTION - FLEXIBLE 10/21/2020 Performed by Cosmo Gomez MD at [facility] Family History Problem Relation Age of [...] 500 mg by mouth daily. Past W tetlin bumetanide (BUMEX) 2 mg tablet Take 2.5 [...] implantation, procedure deferred for now - Hold SLEEVE BASTER aldactone, bumex, metolazone, metoprolol due to severe [...] m oderate ascites and body wall edema -SLEEVE BASTER Bumex 5 mg BID, Spironolactone 100 mg [...] seen/discussed with Dr. Ok Dominguez GI Fellow 2834 PMH: Medical History: Diagnosis Date Cancer (HCC) [...] 06/06/2020 Performed by Bao Hernández MD at [facility] COLONOSCOPY DIAGNOSTIC WITH SPECIMEN COLLECTION BY BRUSHING/ WASHING - FLEXI BLE N/A 06/06/2020 Performed by Bao Hernández MD at [facility] ANGIOGRAPHY CORONARY ARTERY WITH RIGHT AND LEFT HEART CATHETERIZATION N/A Performed by Higinio Clarke MD at [facility] OUTSOLE CEMENTER POSSIBLE PERCUTANEOUS CORONARY STENT PLACEMENT WITH ANGIOPLASTY N/A Performed by Higinio Clarke MD at [facility] OUTSOLE CEMENTER ESOPHAGOGASTRODUODENOSCOPY WITH SPECIMEN COLLECTION BY BRUSHING/ WASHING N/A 10/21/2020 Performed by Cosmo Gomez MD at [facility] SIGMOIDOSCOPY WITH CONTROL OF BLEEDING - FLEXIBLE N/A 10/21/2020 Performed by Cosmo Gomez MD at [facility] SIGMOIDOSCOPY WITH DIRECTED SUBMUCOSAL INJECTION - FLEXIBLE 10/21/2020 Performed by Cosmo Gomez MD at [facility] SH: Social History Socioeconomic History Marital [...] GI b leeding, please page 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 Consider future EGD to evaluate for Castellanos's. [...] 60%/RV failure, severe TR, Cirrhosis, nonischemic cardiomyopathy ([facility] 05/2020 no CAD), Mechanical aortic valve implanted [...] Cr. Is improvi ng. Consider transitioned to SLEEVE BASTER dose to bumetanide 2.5 mg p.o. twice [...] 10/24/2020. INR 1.8 on 10/24/20. 6. Recommend Cargo Vessel Stewardess consultation to discuss sodium restricted diet as [...] Shruti Newberry PA-C Department of Cardiovascular Medicine [facility] Available on Voalte/AMS/Pager [phone] Assessment: Acute on Chronic diastolic HFpEF, EF: 60% NYHA class III, ACC Stage C/predomina ntly RV failure Major Complications or Comorbidities (DETENTION): acute/ acute on chronic systolic and /or [...] kg (131 lb 12.8 oz) Recommendations: GDMT SLEEVE BASTER Changes BB Lopressor 12.5 mg twice daily [...] 06/06/2020 Performed by Bao Hernández MD at [facility] COLONOSCOPY DIAGNOSTIC WITH SPECIMEN COLLECTION BY BRUSHING/ WASHING - FLEXI BLE N/A 06/06/2020 Performed by Bao Hernández MD at [facility] ANGIOGRAPHY CORONARY ARTERY WITH RIGHT AND LEFT HEART CATHETERIZATION N/A Performed by Higinio Clarke MD at [facility] OUTSOLE CEMENTER POSSIBLE PERCUTANEOUS CORONARY STENT PLACEMENT WITH ANGIOPLASTY N/A Performed by Higinio Clarke MD at [facility] OUTSOLE CEMENTER ESOPHAGOGASTRODUODENOSCOPY WITH SPECIMEN COLLECTION BY BRUSHING/ WASHING N/A 10/21/2020 Performed by Cosmo Gomez MD at [facility] SIGMOIDOSCOPY WITH CONTROL OF BLEEDING - FLEXIBLE N/A 10/21/2020 Performed by Cosmo Gomez MD at [facility] SIGMOIDOSCOPY WITH DIRECTED SUBMUCOSAL INJECTION - FLEXIBLE 10/21/2020 Performed by Cosmo Gomez MD at [facility] Family History Problem Relation Age of [...] 500 mg by mouth daily. Past W tetlin bumetanide (BUMEX) 2 mg tablet Take 2.5 [...] implantation, procedure deferred for now - Hold SLEEVE BASTER aldactone, bumex, metolazone, metoprolol due to severe [...] e dandy Arroyo, DO Internal Medicine [facility] Subjective Zaria Paulson is a 60 [...] 24 Miguel r Range BP: 91/52 (10/24 121) Temp: 36.6 C (97.8 F) (10/24 121) Pulse: 94 (10/24 121) Respirations: 18 PER MINUTE (10/24 121) SpO2: 100 % (10/24 121) SpO2 Pulse: 93 (10/24 0300) Height: 157.5 cm (62") (10/23 1723) BP: (80-92)/(52-67) Temp: [36.4 C (97.5 F)-36.7 [...] Plan: 1. Will re-initiate patient on her SLEEVE BASTER dose of 5mg. Discussed with provider an [...] implantation, procedure deferred for now - Hold SLEEVE BASTER aldactone, bumex, metolazone, metoprolol due to severe [...] Intake/Output Summary (Last 24 hours) at 10/23/2020 09 Last data filed at 10/22/20201 Gross per 24 hour Intake 1250 ml [...] m oderate ascites and body wall edema -SLEEVE BASTER Bumex 5 mg BID, Spironolactone 100 mg [...] seen/discussed with Dr. Ok Dominguez GI Fellow 5953 PMH: Medical History: Diagnosis Date Cancer (HCC) [...] 06/06/2020 Performed by Bao Hernández MD at [facility] COLONOSCOPY DIAGNOSTIC WITH SPECIMEN COLLECTION BY BRUSHING/ WASHING - FLEXI BLE N/A 06/06/2020 Performed by Bao Hernández MD at [facility] ANGIOGRAPHY CORONARY ARTERY WITH RIGHT AND LEFT HEART CATHETERIZATION N/A Performed by Higinio Clarke MD at [facility] OUTSOLE CEMENTER POSSIBLE PERCUTANEOUS CORONARY STENT PLACEMENT WITH ANGIOPLASTY N/A Performed by Higinio Clarke MD at [facility] OUTSOLE CEMENTER SH: Social History Socioeconomic History Marital status: [...] GI bleeding, please p age 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 Can consider future EGD to evaluate for Castellanos's. Will defer to primary hepatol ogist. She needs a colonoscopy in May 2021 given remaining polyp. We will check AFP with a.m. labs. She is due for HCC screening with cross-secti onal imaging next month. Management of heart failure per cardiology. Staff name: Rachael Euceda MD Date: 10/24/2020 * Claudette Walton, RYAN-HUMAN FACTORS SPECIALIST - 10/23/2020 7:57 AM CDT Heart Failure Progress Note NAME:Zaria Paulson :1960 AGE: 60 y.o. ADMISSION DATE: 10/20/2020 DAYS ADMITTED: LOS: 3 days Principal Problem: GI bleeding Active Problems: Chronic heart failure with preserved ejection fraction (HCC) Anemia Severe tricuspid regurgitation Aortic valve prosthesis present Chronic anticoagulation History of endocarditis Iron deficiency anemia Cirrhosis (HCC) Paroxysmal atrial fibrillation (HCC) Stage 3b chronic kidney disease (HCC) LEONORA (acute kidney injury) (HCC) Hypoalbuminemia Zaria Paulson is a 60-year-old female who presented on 10/20 for scheduled Car dioMEMS implant however was found to be severely anemic and was admitted to [facility] service for acute GI bleed. She has medical history significant for cirrho sis, heart failure with preserved ejection fraction (60%), nonischemic cardiomyo yolanda ([facility] 05/2020 no CAD), mechanical aortic valve implanted in 2010 on warfarin , atrial fibrillation and previously treated non-Hodgkin's lymphoma. Recommendations: Bumex 2 mg IV BID for now while receiving blood transfusions. Her PASP on echo h as increased since May to , IVC is 10-20. Continue kdur 20 meq po tid. Goal K 4-4.5. Primary team may resume warfarin since bleeding has been controlled. Hold parameters for lopressor if SBP<95,or HR<60 bpm GI team has been consulted, she has had EGD and flex sig. Octreotide infusion h as been discontinued. She has received 5 units PRBCs and ffp. Consult flume tender: albumin 2.9. Patient was seen and examined with Dr.Vidic Claudette Walton, HF, HUMAN FACTORS SPECIALIST [id number] Assessment: Acute on Chronic diastolic HFpEF, EF: [...] changes have occurred. Major Complications or Comorbidities (DETENTION): acute/ acute on chronic systolic and /or [...] flow state. Admission BNP:421 Intake/Output: Entire stay net:+280 ml, Last 24 hr net: +400 ml Goal Dry Weight:estimated 130 pounds Admission Most recent weights (inpatient): There were no vitals filed for this visit. Recommendations: GDMT SLEEVE BASTER Changes BB Lopressor 12.5 mg twice daily [...] ce weekly Given on admission Daily Dosing 10/22- [...] III: baseline creatinine 1.3, on admission 1.72. >1.9.>1.79 Acute GIB/Anemia:: History of angio ectasia on [...] 56%/FEV1 60% and DLCO of 66%. Hypokalemia: 10/22: K 3.3 today, will start kdur 20 meq po TID. 10/23: K 4.1 BMP once a day. Magnesium level daily. Keep Potassium greater than 4.0 and Magn esium greater than 2.0. 2000 mg sodium dietary restriction. Fluid Restriction 1.5L Yes Strict I/O. Standing scale daily weight. Cargo Vessel Stewardess consultation to discuss sodium restricted diet recommended. Pharmacy/Medication counseling recommended. Case Management/Social Work recommended. Physical Therapy consult recommended. Follow Up: appointment with a member of the HF team or PCP within 7 calendar day s of discharge. Subjective: She currently complains of fatigue , however, she is feeling much better today. Review of Systems: Gastrointestinal: negative, positive for decreased appetite, nausea, vomiting an d melena Medical History: Diagnosis Date Cancer (HCC) Non- hodgkins lymphoma, chemo Disorder of thyroid gland Hypertension Iron deficiency anemia 08/03/2020 Iron deficiency anemia 08/03/2020 Surgical History: Procedure Laterality Date AORTIC VALVE REPLACEMENT 05/2009 mechanical ESOPHAGOGASTRODUODENOSCOPY WITH BIOPSY - FLEXIBLE N/A 06/06/2020 Performed by Bao Hernández MD at [facility] COLONOSCOPY DIAGNOSTIC WITH SPECIMEN COLLECTION BY BRUSHING/ WASHING - FLEXI BLE N/A 06/06/2020 Performed by Bao Hernández MD at [facility] ANGIOGRAPHY CORONARY ARTERY WITH RIGHT AND LEFT HEART CATHETERIZATION N/A Performed by Higinio Clarke MD at [facility] OUTSOLE CEMENTER POSSIBLE PERCUTANEOUS CORONARY STENT PLACEMENT WITH ANGIOPLASTY N/A Performed by Higinio Clarke MD at [facility] OUTSOLE CEMENTER Family History Problem Relation Age of Onset [...] 2 mg, Intravenous, BID(9-17) cefTRIAXone (ROCEPHIN) IVP 2 g, 2 g, Intravenous, Q24H* fluticasone propionate (FLONASE) nasal spray 1 spray, 1 spray, Each Nostril, BID levothyroxine (SYNTHROID) tablet 75 mcg, 75 mcg, Oral, QDAY 30 min before breakf ast metoprolol tartrate tablet 12.5 mg, 12.5 mg, Oral, BID pantoprazole DR (PROTONIX) tablet 40 mg, 40 mg, Oral, QDAY(21) potassium chloride SR (K-DUR) tablet 20 mEq, 20 mEq, Oral, TID sertraline (ZOLOFT) tablet 100 mg, 100 mg, Oral, QDAY Continuous Infusions: PRN and Respiratory Meds:acetaminophen Q4H PRN, aluminum/magnesium hydroxide Q4H PRN, docusate QDAY PRN, melatonin QHS PRN, nitroglycerin Q5 MIN PRN, ondansetron Q6H PRN, promethazine Q6H PRN Medications Prior to Admission Medication Sig Dispense Refill Last Dose ascorbic acid (VITAMIN C) 500 mg tablet Take 500 mg by mouth daily. 021 bumetanide (BUMEX) 2 mg tablet Take 2.5 tablets by mouth twice daily. 150 ta blet 3 10/19/2020 calcium carbonate (OS-KRUPA) 1250 mg tablet Take 1,250 mg by mouth daily. [] enoxaparin (LOVENOX) 60 mg syringe Inject [...] Filed Vital Signs: 24 Hour Range BP: 92/58 (10/23 1250) Temp: 36.4 C (97.6 F) (10/23 1250) Pulse: 99 (10/23 1250) Respirations: 18 PER MINUTE (10/23 1250) SpO2: 98 % (10/23 1250) SpO2 Pulse: 89 (10/23 0600) BP: (81-98)/(56-64) Temp: [36.3 C (97.4 F)-36.9 C (98.5 F)] Pulse: [87-99] Respirations: [18 PER MINUTE-24 PER MINUTE] SpO2: [97 %-100 %] Intensity Pain Scale (Self Report): Asleep (10/22/20 2318) Wt Readings from Last 10 Encounters: 10/21/20 [...] diff Lab Results Component Value Date/Time WBC 6.8 10/23/2020 12:35 PM RBC 2.53 (L) 10/23/2020 12:35 PM HGB 8.0 (L) 10/23/2020 12:35 PM HCT 23.9 (L) 10/23/2020 12:35 PM MCV 94.2 10/23/2020 12:35 PM MCH 31.7 10/23/2020 12:35 PM MCHC 33.6 10/23/2020 12:35 PM RDW 16.4 (H) 10/23/2020 12:35 PM PLTCT 117 (L) 10/23/2020 12:35 PM MPV 7.5 10/23/2020 12:35 PM Lab Results Component Value Date/Time NEUT 79 [...] Results Component Value Date/Time NA 131 (L) 10/23/2020 12:35 PM K 4.1 10/23/2020 12:35 PM CL 99 10/23/2020 12:35 PM CO2 25 10/23/2020 12:35 PM GAP 7 10/23/2020 12:35 PM BUN 42 (H) 10/23/2020 12:35 PM CR 1.79 (H) 10/23/2020 12:35 PM GLU 122 (H) 10/23/2020 12:35 PM GLU 143 (H) 07/28/2020 09:45 AM Lab Results Component Value Date/Time CA 7.9 (L) 10/23/2020 12:35 PM PO4 3.3 10/20/2020 05:12 PM ALBUMIN 2.9 (L) 10/23/2020 12:35 PM TOTPROT 5.1 (L) 10/23/2020 12:35 PM ALKPHOS 52 10/23/2020 12:35 PM AST 26 10/23/2020 12:35 PM ALT 11 10/23/2020 12:35 PM TOTBILI 0.8 10/23/2020 12:35 PM GFR 29 (L) 10/23/2020 12:35 PM GFRAA 35 (L) 10/23/2020 12:35 PM Renal Function Lab Results Component Value Date/Time NA 131 (L) 10/23/2020 12:35 PM K 4.1 10/23/2020 12:35 PM CL 99 10/23/2020 12:35 PM CO2 25 10/23/2020 12:35 PM GAP 7 10/23/2020 12:35 PM BUN 42 (H) 10/23/2020 12:35 PM BUN 50 (H) 10/22/2020 03:12 AM BUN 46 (H) 10/21/2020 05:15 AM Lab Results Component Value Date/Time CR 1.79 (H) 10/23/2020 12:35 PM CR 1.91 (H) 10/22/2020 03:12 AM CR 1.72 (H) 10/21/2020 05:15 AM GLU 122 (H) 10/23/2020 12:35 PM GLU 143 (H) 07/28/2020 09:45 AM CA 7.9 (L) 10/23/2020 12:35 PM PO4 3.3 10/20/2020 05:12 PM ALBUMIN 2.9 (L) 10/23/2020 12:35 PM Lipid Profile INR No results found for: CHOL, TRIG, HDL, LDL, VLDL, NONHDLCHOL, CHOLHDLC Lab Results Component Value Date INR 2.8 (H) 10/23/2020 Chest X-Ray: Tele/ECG: SR 90 Echocardiogram Details: Echo Results (Last 3 results in the past 3 years) Echo EF LVIDD LA Size IVS LVPW Rest PAP (10/21/20) 60 (10/21/20) 4.46 (10/21/20) 5.96 (10/21/20) 1.21 (10/21/20) 1.16 (10/21/20) 79 (05/22/20) 60 (05/22/20) 4.31 (05/22/20) 6.56 (05/22/20) 1.21 (05/22/20) 1.30 (05/22/20) 64 * Maggi Salamanca RN - 10/22/2020 8:42 [...] implantation, procedure deferred for now - Hold SLEEVE BASTER aldactone, bumex, metolazone, metoprolol due to severe [...] (10/22 599) Height: 157.5 cm (62.01") (10/21 09) BP: (93-127)/(56-84) Temp: [36.1 C (97 F)-37.1 C (98.7 F)] Pulse: [93-116] Respirations: [17 PER MINUTE-33 PER MINUTE] SpO2: [91 %-100 %] Intensity Pain Scale (Self Report): 5 (10/21/205) There were no vitals filed for this [...] (Last 24 hours) Glucose: (!) 181 (10/22/20 031) Radiology and other Diagnostics Review: Pertinent radiology reviewed., EKG Reviewed Duyen Arroyo DO * Claudette Walton APRN-HUMAN FACTORS SPECIALIST - 10/22/2020 7:39 AM CDT Heart Failure [...] be severely anemic and was admitted to [facility] service for acute GI bleed. She has medical history significant for cirrho sis, heart failure with preserved ejection fraction (60%), nonischemic cardiomyo yolanda ([facility] 05/2020 no CAD), mechanical aortic valve implanted [...] and examined with Dr.Vidic Claudette Walton, HF, HUMAN FACTORS SPECIALIST [id number] Assessment: Acute on Chronic diastolic HFpEF, EF: [...] changes have occurred. Major Complications or Comorbidities (DETENTION): acute/ acute on chronic systolic and /or [...] vitals filed for this visit. Recommendations: GDMT SLEEVE BASTER Changes BB Lopressor 12.5 mg twice daily [...] Yes Strict I/O. Standing scale daily weight. Cargo Vessel Stewardess consultation to discuss sodium restricted diet recommended. [...] 06/06/2020 Performed by Bao Hernández MD at [facility] ENDO COLONOSCOPY DIAGNOSTIC WITH SPECIMEN COLLECTION BY BRUSHING/ WASHING - FLEXI BLE N/A 06/06/2020 Performed by Bao Hernández MD at [facility] ENDO ANGIOGRAPHY CORONARY ARTERY WITH RIGHT AND LEFT HEART CATHETERIZATION N/A Performed by Higinio Clarke MD at [facility] OUTSOLE CEMENTER POSSIBLE PERCUTANEOUS CORONARY STENT PLACEMENT WITH ANGIOPLASTY N/A 3/18/202 1 Performed by Higinio lCarke MD at [facility] OUTSOLE CEMENTER Family History Problem Relation Age of Onset [...] Signs: 24 Hour Range BP: 97/66 (10/22 0600) Temp: 36.1 C (97 F) (10/22 [...] the treatment plan as outlined by the HUMAN FACTORS SPECIALIST The Complexity of medical decision making is [...] with my edits as outlined below. Staff sap hana architect: DO Jalen Jaimes Nizar T, MD - [...] advanced [facility] Gastroenterology/Transplant Hepatology * Jesus eSnior MD - 10/22/2020 12:04 AM CDT Brief [...] RN gave report to Prepost RN Javi. 2014: prepost nurse at bedside. Patient cleaned [...] implantation, procedure deferred for now - Hold SLEEVE BASTER aldactone, bumex, metolazone, metoprolol due to severe [...] of which greater than 50% was spent [id number] with the patient in care coordination (reviewing the records, angella nieves, documentation, discussion with the nurse, case management manager and the social work , discussion with planning consultant services) and bedside counseling. Subjective Zaria [...] (10/21/20 0515) POC Glucose (Download): (!) 152 (10/20/201710) Radiology and other Diagnostics Review: Pertinent radiology reviewed., EKG Reviewed Duyen Arroyo DO * Miracle Dennison RN - 10/20/2020 6:34 PM CDT Pt transported to [facility] on bedside monitor following Rapid response. Bedside [...] medication management. Javi Tillman MD, FACP Clinical Electric Range Assembler Internal Medicine, [facility] Medicine Pager: [phone] * Yahaira Hewitt RN - 10/20/2020 5:09 [...] 10:00 AM CDT [facility] arrival to [facility] pt mentioned she had been experiencing [...] fraction, nonischemic cardiomyopathy,s/paortic valve replacement x3 (on inspector bullet slugs shantanu anticoagulation for mechanical valve),paroxysmal atrial fibrillation, hy pertension, previous endocarditis,iron deficiency anemia (IV iron given), inspector bullet slugs shantanu kidney disease,hypothyroidism, depression, non-Hodgkins lymphoma and [...] hemorrhoids. Crissy Gould PA-C Interventional Cardiology Pager [phone] * Adriana Leblanc RN - 10/19/2020 9:14 AM CDT Cardiovascular Labs Scheduling Checklist 1. Date of procedure:10/20 2. Arrival time: 0900 3. Patient instructed NPO after MN; clear liquids until: 0800 4. Instructed to check-in at the [facility] registration desk and bring phot o id, insurance cards and a current list of home medications. Pack an overnight bag in the event you are admitted overnight: Y 5. If you have a history of sleep apnea and use a C-Pap or Bi-Pap machine, pleas e bring it with you to the hospital: N 6. Have a star route mail driver available upon discharge as you may not be cleared to drive for 24 or 48 hours post procedure. (exception is RHC/biopsy patient with internal j ugular approach not receiving sedation): Y 7. If the patient's language preference is other than [place], please indicated crow language and need for nail setter: N 8. Patient instructed to drink 64 [...] No need for bowel prep, will ad cuprous chloride helper enema tomorrow - Transfuse to keep Hb>7, 2 units ordered for now. Patient consented - Last iron infusion in August 2020. EGD in May 2020 essentially normal. C-scope in May 2020 with angiectasia, treated with argon plasma. Chronic HFpEF without acute exacerbation Pulmonary HTN with chronic cor pulmonale - Originally presented for CardioMEMs implantation, procedure deferred for now - Hold SLEEVE BASTER aldactone, bumex, metolazone, metoprolol due to severe [...] - Discussed with patient. - Admit to [facility] with hepatology and heart failure consults. Total 70 minutes spent in patient care performing history and physical, clarifyi ng medical history, reviewing prior visits with patient, checking facts, reviewi ng recommendations, placing orders for admission, 35 minutes were spent in couns eling and coordination of care. An additional 40 minutes were spent reviewing records in [facility] and prior hospital izations, clinic visit [...] was lightheaded when she got her up [facility] er in the day. Blood pressure [...] 06/06/2020 Performed by Bao Hernández MD at [facility] ENDO COLONOSCOPY DIAGNOSTIC WITH SPECIMEN COLLECTION BY BRUSHING/ WASHING - FLEXI BLE N/A 06/06/2020 Performed by Bao Hernández MD at [facility] ENDO ANGIOGRAPHY CORONARY ARTERY WITH RIGHT AND LEFT HEART CATHETERIZATION N/A Performed by Higinio Clarke MD at [facility] OUTSOLE CEMENTER POSSIBLE PERCUTANEOUS CORONARY STENT PLACEMENT WITH ANGIOPLASTY N/A Performed by Higinio Clarke MD at [facility] OUTSOLE CEMENTER Family History Problem Relation Age of Onset [...] Vital Signs: 24 Hour Range BP: 89/54 (10/20 1200) Temp: 36.6 C (97.9 F) (10/20 0913) Pulse: 105 (07/30 1200) Respirations: 20 PER MINUTE (10/21 1199) SpO2: [...] Screen NEG Electronic Crossmatch YES Unit Number [id number] Blood Component Type RBC,ADSOL,LEUKO REDUCED,1ST CONT. Unit Division 00 Status OF Unit ISSUED ISSUE DATE TIME [id number] PRODUCT CODE [id number] BLOOD TYPE O POS CODING STATUS 5100 [...] below. Crissy Gould PA-C Interventional Cardiology Pager [phone] Progress Notes Nithya Madison (HOSSEIN Redd (Nurse Practitioner) Nurse PractitFamily henry 10/12/20 1130 Signed Date of Service: 10/12/2020 Zaria Paulson is a 60 y.o. female. She is followed by Dr. Longo HPI Her past medical history is significant for heart failure with preserved ejectio n fraction, nonischemic cardiomyopathy, s/p aortic valve replacement x3 (on inspector bullet slugs shantanu anticoagulation for mechanical valve), paroxysmal atrial fibrillation, hyp ertension, previous endocarditis, iron deficiency anemia -received IV iron, inspector bullet slugs shantanu kidney disease, hypothyroidism, depression, non-Hodgkins lymphoma [...] 06/06/2020 Performed by Bao Hernández MD at [facility] ENDO COLONOSCOPY DIAGNOSTIC WITH SPECIMEN COLLECTION BY BRUSHING/ WASHING - FLEXI BLE N/A 06/06/2020 Performed by Bao Hernández MD at [facility] ENDO ANGIOGRAPHY CORONARY ARTERY WITH RIGHT AND LEFT HEART CATHETERIZATION N/A Performed by Higinio Clarke MD at [facility] OUTSOLE CEMENTER POSSIBLE PERCUTANEOUS CORONARY STENT PLACEMENT WITH ANGIOPLASTY N/A Performed by Higinio Clarke MD at [facility] OUTSOLE CEMENTER Family History Problem Relation Age of Onset [...] EF of 60%. -GDMT:Spironolactone 100 mg daily, [id number] twice daily, metolazone 2.5 mg twice weekly [...] concerns prior to the next appointment. Total [id number]. Estimated counseling [id number]. Thank you for allowing me to participate in the care of this patient. If you hav e any questions please do not hesitate to contact our office. Berna Madison, DNP, ELECTRONIC TEST TECHNICIAN, HUMAN FACTORS SPECIALIST-C Collaborating Physician: Dr. Ramo Lamb [place] [facility] Current Medications (including today's revisions) [...] synthroid, zofran, protonix; Oral Diet Order: Cardiac;Diabetic [id number] Kcal/day (60 g carb/meal, 30 g carb/ HS snack); Current Oral Intake: Marginally Adequate Estimated Calorie Needs: 1800(30kcal/kg/present wt) Estimated Protein Needs: 72-84(1.2-1.4g/kg/present wt) Malnutrition Assessment: Does not meet criteria; ; ; ; ; Nutrition Focused Physical Assessment: ; ; Muscle Wasting: Yes; Severity: Moderate; Location: Clavicle, Mormon Edema: No; ; Pressure Injury: none noted [...] Within 72 hours Brigitte Barlow, MS, RD, GAS UTILITY WORKER, LD, CCTD Office: [phone] Available on Voalte * Claudette Walton APRN-HUMAN FACTORS SPECIALIST - 10/21/2020 8:23 AM CDT Associated Order(s): [...] be severely anemic and was admitted to [facility] service for acute GI bleed. She has medical history significant for cirrho sis, heart failure with preserved ejection fraction (60%), nonischemic cardiomyo yolanda ([facility] 05/2020 no CAD), mechanical aortic valve implanted [...] and examined with Dr.Vidic Claudette Walton, HF, HUMAN FACTORS SPECIALIST [id number] Assessment: Acute on Chronic diastolic HFpEF, EF: 60% on last echo 05/22/2020. Repeat echo p ending today. Major Complications or Comorbidities (DETENTION): acute/ acute on chronic systolic and /or [...] vitals filed for this visit. Recommendations: GDMT SLEEVE BASTER Changes BB Lopressor 12.5 mg twice daily [...] Yes Strict I/O. Standing scale daily weight. Cargo Vessel Stewardess consultation to discuss sodium restricted diet recommended. [...] 06/06/2020 Performed by Bao Hernández MD at [facility] ENDO COLONOSCOPY DIAGNOSTIC WITH SPECIMEN COLLECTION BY BRUSHING/ WASHING - FLEXI BLE N/A 06/06/2020 Performed by Bao Hernández MD at [facility] ENDO ANGIOGRAPHY CORONARY ARTERY WITH RIGHT AND LEFT HEART CATHETERIZATION N/A Performed by Higinio Clarke MD at [facility] OUTSOLE CEMENTER POSSIBLE PERCUTANEOUS CORONARY STENT PLACEMENT WITH ANGIOPLASTY N/A Performed by Higinio Clarke MD at [facility] OUTSOLE CEMENTER Family History Problem Relation Age of Onset [...] the treatment plan as outlined by the HUMAN FACTORS SPECIALIST The Complexity of medical decision making is [...] with my edits as outlined below. Staff sap hana architect: Shanell Ybarra DO * Hever Cool MD - 10/20/2020 1:25 PM CDT Associated [...] and pulmonary HTN. Previous liver bx revie fri by [facility] and shows features of [...] m oderate ascites and body wall edema -SLEEVE BASTER Bumex 5 mg BID, Spironolactone 100 mg [...] remains stable overnight -CLD today, NPO at [place] -No PO bowel prep. Will need tap water enema tomorrow morning prior to procedure -Maintain 2 large bore IVs -IV PPI BID -Octreotide bolus and gtt -Ceftriaxone for SBP prophylaxis -Hold diuretics -Hold warfarin and Lovenox Patient seen/discussed with Dr. Patricia Cool GI fellow Pager [phone] 10/20/2020 3:15 PM PMH: Medical History: Diagnosis [...] 06/06/2020 Performed by Bao Hernández MD at [facility] ENDO COLONOSCOPY DIAGNOSTIC WITH SPECIMEN COLLECTION BY BRUSHING/ WASHING - FLEXI BLE N/A 06/06/2020 Performed by Bao Hernández MD at [facility] ENDO ANGIOGRAPHY CORONARY ARTERY WITH RIGHT AND LEFT HEART CATHETERIZATION N/A Performed by Higinio Clarke MD at [facility] OUTSOLE CEMENTER POSSIBLE PERCUTANEOUS CORONARY STENT PLACEMENT WITH ANGIOPLASTY N/A Performed by Higinio Clarke MD at [facility] OUTSOLE CEMENTER SH: Social History Socioeconomic History Marital status: [...] Plan D/c home today Pt lives in [facility] with her SO of 6 years. Pt reports she was independ ent with most cares SLEEVE BASTER. She does not drive. Pt will have transport home provided by her SO Catarino. He will be coming from [facility]. Pt was on warfarin SLEEVE BASTER. She had her sap hana architect Riley Hopson following inrs/coum marco dosing. Pt [...] provide transport. he will be coming from [place]. Does the patient use Medicaid Transportation?: No Next Level of Care (Acute Psych discharges only) Discharge Disposition Selected Continued Care - Admitted Since 10/20/2020 No services have been selected for the patient. Gavi Nobles Integrated Nurse Php Lamp Developer [facility] [phone] Pager [phone] * Care Coordination-Inpatient - Caitlin Esparza RN [...] ulcers). Hepatology Follow-ups: No changes made to SLEEVE BASTER schedule Hepatology appt. Appointment Date/Time: 12/19/2020 @ 12pm Appointment Provider: Dr Allison Marti. Histologic Technician Follow up: Labs Labs: CBC ordered and faxed to patient's preferred lab [facility] in [facility]. Hospital is currently closed, but lab services are still available. Order fax ed to number provided by outside sales representative insurance when called to verify lab services at [...] she was instructed to return [facility] for evaluation. She verbalized understanding. Encouraged patient/family to call the clinic with any hepatology needs after discharge. [phone]. ~Will be available if patient needs anything from a hepatology standpoint while in the hospital Friday through Friday 7am-5pm ~Discharge information to be sent to the hepatology provider & team that will follow with patient in the outpatient clinic. Rachael Esparza RN-BSN Inpatient Hepatology Nurse Coordinator Pgr: [phone] [facility] [phone] * Care Plan - Shalonda Santzio RN - 10/26/2020 9:32 AM CDT Pt [...] Self Care Goal: Maximize Cardiovascular Knowledge 10/26/2020 06 by Elizabeth Stafford RN Outcome: Goal Ongoing 10/26/2020 06 by Elizabeth Stafford RN Outcome: Goal Ongoing Goal: Maximize Cardiovascular Attitudes 10/26/2020 06 by Elizabeth Stafford RN Outcome: Goal Ongoing 10/26/2020 06 by Elizabeth Stafford RN Outcome: Goal Ongoing Goal: Maximize Cardiovascular Behaviors. 10/26/2020 0638 by Elizabeth Stafford RN Outcome: Goal Ongoing 10/26/2020 0637 by Elizabeth Stafford RN Outcome: Goal Ongoing Problem: Nutrition Deficit Goal: Adequate nutritional intake 10/26/2020637 by Elizabeth Stafford RN Outcome: Goal Ongoing [...] nutritional intake Outcome: Goal Ongoing * Care Naseem - Lilly Walton RN - 10/24/2020 7:21 [...] nutritional intake Outcome: Goal Ongoing * Care Naseem - Lilly Walton RN - 10/23/2020 6:34 [...] Outcome: Goal Ongoing * Case Mgmt DC Naseem - Gavi Nobles RN - 10/23/2020 4:07 [...] any assist is needed. Pt lives in [facility] with her SO of 6 years. Pt reports she was independ ent with most cares SLEEVE BASTER. She does not drive. Pt will have transport home provided by her SO Catarino. He will be coming from [facility]. Pt has used HH and home infusion in the past, but could not remember the name of the companies. Pt was on warfarin SLEEVE BASTER. She had her sap hana architect Riley Hopson following inrs/coum marco dosing. Pt reports that sometimes her HF team would follow it and adjust he r coumadin. Plan: holding warfarin today. Monitoring pt when back on warfarin and adjust as needed pending INRs. Pending d/c . Will follow. Patient Address/Phone [address] [address] (home) Emergency Contact Extended Emergency [...] Transportation Name, Phone and Availability #1: pts SO, Catarino Westfall to provide transport. he will be coming from [place]. Does the patient use Medicaid Transportation?: No [...] Source of Income Source Of Income: Other mcfp income Financial Assistance Needed? no reported concerns regarding medication or medical coverage Psychosocial Needs Mental Health Mental Health History: No Substance Use History Substance Use History Screen: No Other na Current/Previous Services PCP [facility], [place], , Pharmacy [address] [address] Durable Medical Equipment Durable Medical Equipment at [...] Home and community based services: No Wicho Powell: N/A Hospice Hospice: No Outpatient Therapy PT: yes, pt had cardiac rehab post CABG at [facility] outpt. OT: No ASSEMBLER PRODUCT: No [facility] Facility/Halfway SNF: No NH: No Inpatient Rehab IPR: No Long-Term Acute [facility] Hospital LTACH: No Acute Hospital Stay Acute Hospital Stay: In the past Was patient's stay within the last 30 days?: No Gavi Nobles Integrated Nurse Php Lamp Developer [facility] [phone] Pager [phone] * Care Plan - Maggi Salamanca RN [...] Zaria Paulson Attending: Duyen Arroyo DO Service: [facility] L- [id number] Admission Date: 10/20/2020 LOS: 1 day A Code/Rapid Response Timeline Event Report has been created for this patient on 10/21/20 at 1224 SEWER CONNECTOR called due to concerns from a HF [...] this event was Dr Arroyo. Joan Parrish, RN * Response Teams - Nevin Tellez RN - 10/20/2020 5:23 PM CDT Rapid Response Team Progress Note Date: 10/20/2020 Time: 5:23 PM Patient: Zaria Paulson Attending: Vijaya Millard MD Service: [facility] 6154 Admission Date: 10/20/2020 LOS: 0 days A [...] - 10/20/2020 4:38 PM CDT Assigned to [facility] as moving to [facility] 7. Vijaya [...] PM CDT TRANSFUSE RBC'S Blood Bank Routine documented as of this encounter Goals Goal Patient Associated Recent Progress Patient-Stat Aut hor Goal Type Problems ed? [facility] On track (10/23/2020 Yes [place], 1:06 PM CDT) CHRYSTAL Singh documented as [...] CDT documented in this encounter Results * BASIC METABOLIC PANEL (11/29/2020 10:40 AM [...] (L) >60 mL/min [facility] Comment: [place] The eGFR is not validated f or use in drug dosing adjustments. Continue to use estimated creatinine clearance per dosing reference text. Please contact the Clinical Pharmacist for questions. eGFR >60 >60 mL/min [facility] [place] Comment: The eGFR is not validated for use in drug dosing adjustments. Continue to use estimated creatinine clearance per dosing reference text. Please contact the Clinical Pharmacist for questions. Specimen Blood Performing Organization Address City/[facility]/ZIP Code P shane Number [facility] [address] [place] [address] * PTT (APTT) (10/26/2020 6:16 AM CDT) APTT 34.5 24.0 - 36.5 SEC MAIN LAB Specimen Performing Organization Address City/[facility]/ZIP [facility] P shane Number [facility] [address] [place] [address] * PROTIME INR (PT) (10/26/2020 6:16 AM CDT) INR 1.4 (H) 0.8 - 1.2 MAIN LAB Specimen Blood Performing Organization Address City/[facility]/ZIP Code P shane Number [facility] [address] [place] [address] * MAGNESIUM (10/26/2020 6:16 AM CDT) Magnesium 1.9 1.6 - 2.6 mg/dL [facility] Specimen Blood Performing Organization Address City/[facility]/ZIP Code P shane Number [facility] [address] [place] [address] * CBC (10/26/2020 6:16 AM CDT) White [...] P shane Number [facility] [address] [place] [address] * COMPREHENSIVE METABOLIC PANEL (10/26/2020 6:16 AM CDT) Pathologist [facility] Sodium 131 (L) 137 - 147 MMOL/L [...] (L) >60 mL/min [facility] Comment: [place] The eGFR is not validated f or use in drug dosing adjustments. Continue to use estimated creatinine clearance per dosing reference text. Please contact the Clinical Pharmacist for questions. eGFR 59 (L) >60 mL/min [facility] [place] Comment: The eGFR is not validated for use in drug dosing adjustments. Continue to use estimated creatinine clearance per dosing reference text. Please contact the Clinical Pharmacist for questions. Specimen Blood Performing Organization Address City/[facility]/ZIP Code P shane Number [facility] [address] [place] [phone] * PTT (APTT) (10/26/2020 12:27 AM CDT) APTT 75.3 (H) 24.0 - 36.5 SEC [facility] Specimen Blood Performing Organization Address City/[facility]/ZIP Code P shane Number [facility] [address] [place] [phone] * PTT (APTT) (10/25/2020 6:00 PM CDT) APTT 30.1 24.0 - 36.5 SEC [facility] Specimen Blood Performing Organization Address City/[facility] Code P shane Number [facility] [address] [place] [phone] * MAGNESIUM (10/25/2020 6:05 AM CDT) Magnesium 1.9 1.6 - 2.6 mg/dL [facility] Specimen Performing Organization Address City/[facility] P shane Number [facility] [address] [place] [phone] * CBC (10/25/2020 6:05 AM CDT) White [...] MAIN LAB Specimen Blood Performing Organization Address City/[facility]/ZIP Code P shane Number [facility] [address] [place] [address] * ALPHA FETO PROTEIN (AFP) (10/25/2020 6:05 AM CDT) Alpha Feto 1.4 0.0 - 15.0 NG/ML [facility] Protein Specimen Blood Performing Organization Address City/[facility]/ZIP Code P shane Number [facility] [address] [place] [address] * COMPREHENSIVE METABOLIC PANEL (10/25/2020 6:05 AM [...] >60 >60 mL/min [facility] Comment: [place] The eGFR is not validated f or use in drug dosing adjustments. Continue to use estimated creatinine clearance per dosing reference text. Please contact the Clinical Pharmacist for questions. eGFR >60 >60 mL/min [facility] [place] Comment: The eGFR is not validated for use in drug dosing adjustments. Continue to use estimated creatinine clearance per dosing reference text. Please contact the Clinical Pharmacist for questions. Specimen Blood Performing Organization Address City/[facility]/ZIP Code P shane Number [facility] [address] [place] [address] * PROTIME INR (PT) (10/25/2020 6:05 AM CDT) INR 1.4 (H) 0.8 - 1.2 [facility] Specimen Blood Performing Organization Address [facility] P shane Number [facility] [address] [place] [address] * IRON + BINDING CAPACITY + %SAT+ FERRITIN (10/24/2020 5:47 AM CDT) Pathologist [facility] Iron 32 (L) 50 - 160 MCG/DL [facility] Iron 262 (L) 270 - 380 MCG/DL [facility] Binding-TIBC % Saturation 12 (L) 28 - 42 % [facility] Ferritin 130 10 - 200 NG/ML [facility] Specimen Performing Organization Address [facility] P shane Number [facility] MAIN [facility] [address] [place] [address] * CBC (10/24/2020 5:47 AM CDT) Pathologist [facility] [place] White Blood 4.8 4.5 - 11.0 K/UL [...] MAIN LAB Specimen Blood Performing Organization Address [facility] P shane Number [facility] [address] [place] [address] * COMPREHENSIVE METABOLIC PANEL (10/24/2020 5:47 AM CDT) Pathologist [facility] [place] Sodium 131 (L) 137 - 147 MMOL/L [...] (L) >60 mL/min [facility] Comment: [place] The eGFR is not validated f or use in drug dosing adjustments. Continue to use estimated creatinine clearance per dosing reference text. Please contact the Clinical Pharmacist for questions. eGFR 44 (L) >60 mL/min [facility] [place] Comment: The eGFR is not validated for use in drug dosing adjustments. Continue to use estimated creatinine clearance per dosing reference text. Please contact the Clinical Pharmacist for questions. Specimen Blood Performing Organization Address City/State/ZIP Code P shane Number MAIN LAB [address] [place] [address] * PROTIME INR (PT) (10/24/2020 5:47 AM CDT) INR 1.8 (H) 0.8 - 1.2 [facility] Specimen Blood Performing Organization Address City/State/ZIP Code P shane Number MAIN LAB [address] [place] [address] * COMPREHENSIVE METABOLIC PANEL (10/23/2020 12:35 PM [...] (L) >60 mL/min [facility] Comment: [place] The eGFR is not validated f or use in drug dosing adjustments. Continue to use estimated creatinine clearance per dosing reference text. Please contact the Clinical Pharmacist for questions. eGFR 35 (L) >60 mL/min [facility] [place] Comment: The eGFR is not validated for use in drug dosing adjustments. Continue to use estimated creatinine clearance per dosing reference text. Please contact the Clinical Pharmacist for questions. Specimen Blood Performing Organization Address City/State/ZIP Code P shane Number MAIN LAB [address] [place] [address] * CBC (10/23/2020 12:35 PM CDT) White Blood 6.8 4.5 - 11.0 K/UL MAIN LAB Cells RBC 2.53 (L) 4.0 - 5.0 M/UL [facility] Hemoglobin 8.0 (L) 12.0 - 15.0 GM/DL [facility] Hematocrit 23.9 (L) 36 - 45 % [facility] MCV 94.2 80 - 100 FL [facility] MCH 31.7 26 - 34 PG [facility]IN [facility] MCHC 33.6 32.0 - 36.0 G/DL MAIN LAB RDW 16.4 (H) 11 - 15 % [facility] Platelet Count 117 (L) 150 - 400 K/UL MAIN LAB MPV 7.5 7 - 11 FL MAIN LAB Specimen Blood Performing Organization Address City/State/ZIP Code P shane Number MAIN LAB [address] [place] [address] * PROTIME INR (PT) (10/23/2020 8:37 AM CDT) INR 2.8 (H) 0.8 - 1.2 [facility] Specimen Blood Performing Organization Address City/[facility]/ZIP Code P shane Number [facility] MAIN [facility] [address] [place] [address] * HEMOGLOBIN & HEMATOCRIT (10/22/2020 11:17 PM CDT) Hemoglobin 7.9 (L) 12.0 - 15.0 GM/DL [facility] Hematocrit 22.8 (L) 36 - 45 % [facility] Specimen Blood Performing Organization Address City/[facility] Code P shane Number [facility] MAIN [facility] [address] [place] [address] * TRANSFUSE RBC'S (10/22/2020 9:53 PM CDT) Specimen Blood * TRANSFUSE RBC'S (10/22/2020 9:53 PM CDT) Specimen Blood * LACTIC ACID(LACTATE) (10/22/2020 8:59 PM CDT) Pathologist [facility] [place] Lactic Acid 1.9 0.5 - 2.0 MMOL/L [facility] Specimen Blood Performing Organization Address [facility] P shane Number [facility] MAIN [facility] [address] [place] [address] * CBC (10/22/2020 8:59 PM CDT) White [...] Count 117 (L) 150 - 400 K/UL MAIN LAB MPV 7.7 7 - 11 FL [facility] Specimen Blood Performing Organization Address City/[facility] Code P shane Number [facility] MAIN [facility] [address] [place] [address] * CBC (10/22/2020 12:34 PM CDT) White [...] MAIN LAB Specimen Blood Performing Organization Address City/[facility]/ZIP Code P shane Number [facility] MAIN [facility] [address] [place] [address] * MAGNESIUM (10/22/2020 3:12 AM CDT) Magnesium 2.0 1.6 - 2.6 mg/dL [facility] Specimen Performing Organization Address City/[facility] Code P shane Number [facility] MAIN [facility] [address] [place] [address] * CBC (10/22/2020 3:12 AM CDT) White [...] MAIN LAB Specimen Blood Performing Organization Address City/[facility]/ZIP Code P shane Number [facility] MAIN [facility] [address] [place] [address] * PROTIME INR (PT) (10/22/2020 3:12 AM CDT) INR 3.1 (H) 0.8 - 1.2 [facility] Specimen Blood Performing Organization Address City/[facility]/ZIP Code P shane Number [facility] MAIN [facility] [address] [place] [address] * COMPREHENSIVE METABOLIC PANEL (10/22/2020 3:12 AM [...] (L) >60 mL/min [facility] Comment: [place] The eGFR is not validated f or use in drug dosing adjustments. Continue to use estimated creatinine clearance per dosing reference text. Please contact the Clinical Pharmacist for questions. eGFR 33 (L) >60 mL/min [facility] [place] Comment: The eGFR is not validated for use in drug dosing adjustments. Continue to use estimated creatinine clearance per dosing reference text. Please contact the Clinical Pharmacist for questions. Specimen Blood Performing Organization Address City/[facility]/ZIP Code P shane Number MAIN LAB [address] [place] [address] * EGD REPORT (10/21/2020 9:59 PM CDT) Provation Patient Name: Khurram SPARKS OTHER Report Procedure Date: 10/21/2020 9:59 RESULT S PM CSN: [id number] Date of : 1960 Gender: Female Attending Physician: Cosmo Gomez MD Procedure: Upper GI endoscopy Indications: Hematochezia Providers: Cosmo Gomez MD (Doctor), Jesus Senior (Fellow), Sarah Sapp (Nurse), Omid Brooke, Examination Grader (Examination Grader) Referring Physician: Cosmo Gomez MD Medications: Monitored [...] 6 seconds Procedure Code(s): --- Professional --- 74107, Esophagogastroduodenoscopy, flexible, transoral; diagnostic, including collection of specimen(s) by brushing or washing, when performed (separate procedure) Diagnosis Code(s): --- Professional --- K22.8, Other specified diseases of esophagus K92.1, Melena (includes Hematochezia) CPT copyright 2020 [place] [employer]. All rights reserved. The codes documented in this report are preliminary and upon extender review may be revised to meet current [...] Date: 10/21/2020 9:34 RESULT S PM CSN: [id number] Date of : 1960 Gender: Female Attending Physician: Cosmo Gomez MD Procedure: Flexible Sigmoidoscopy Indications: Hematochezia Providers: Cosmo Gomez MD (Doctor), Sarah Sapp (Nurse), Omid Brooke Examination Grader (Examination Grader), Jesus Senior (Fellow) Referring Physician: Cosmo Gomez [...] 40 seconds Procedure Code(s): --- Professional --- 28853, Sigmoidoscopy, flexible; with control of bleeding, any method Diagnosis Code(s): --- Professional --- K55.21, Angiodysplasia of colon with hemorrhage K92.1, Melena (includes Hematochezia) CPT copyright 2020 [place]. All rights reserved. The codes documented in this report are preliminary and upon extender review may be revised to meet current compliance requirements. Attending Participation: I personally performed the entire procedure. I was present and participated during the entire procedure, including non-turpin portions. MD Cosmo Emmanuel MD 10/23/2020 3:34:56 PM The attending physician has electronically signed and finalized this document. Jesus Senior, Number of Addenda: 0 Note Initiated On: 10/21/2020 9:34 PM Specimen Performing Organization Address [facility] Code P shane Number KU OTHER RESULTS * PROTIME INR (PT) (10/21/2020 6:46 PM CDT) INR 3.7 (H) 0.8 - 1.2 [facility] MAIN [facility] Specimen Blood Performing Organization Address [facility] P shane Number [facility] MAIN [facility] [address] [place] [address] * CBC (10/21/2020 6:46 PM CDT) White Blood 10.1 4.5 - 11.0 K/UL [facility] Cells RBC 2.36 (L) 4.0 - 5.0 M/UL [facility] Hemoglobin 7.2 (L) 12.0 - 15.0 GM/DL [facility] Hematocrit 21.3 (L) 36 - 45 % [facility] MCV 90.4 80 - 100 FL [facility] MCH 30.7 26 - 34 PG [facility] MCHC 33.9 32.0 - 36.0 G/DL [facility] RDW 17.3 (H) 11 - 15 % [facility] Platelet Count 156 150 - 400 K/UL [facility] MPV 7.2 7 - 11 FL [facility] Specimen Blood Performing Organization Address [facility] P shane Number [facility]IN [facility] [address] [place] [address] * TRANSFUSE RBC'S (10/21/2020 1:35 PM CDT) Specimen Blood * TRANSFUSE RBC'S (10/21/2020 1:35 PM CDT) Specimen Blood * PREPARE PLASMA (FFP) (10/21/2020 12:38 PM CDT) Units Ordered 1 [facility] Unit Number [id number] [facility] Blood Component THAWED PLASMA [facility] Type Unit Division 00 [facility] Status OF Unit TRANSFUSED [facility] ISSUE DATE TIME [facility]IN [facility] PRODUCT CODE [id number] [facility] BLOOD TYPE O POS [facility] CODING STATUS 5100 [facility]IN [facility] BLOOD [id number] [facility] EXPIRATION DATE Transfusion OK TO TRANSFUSE [facility] Status Specimen Other (Specify) Performing Organization Address City/State/ZIP Code P shane Number MAIN LAB [address] [place] [address] * 2D + DOPPLER ECHO (10/21/2020 9:56 [...] = LAB AV index 0.50 OTHER OUTSIDE (crow) LAB LVOT area 2.96 cm2 OTHER OUTSIDE [...] 18.07 OTHER OUTSIDE ratio LAB Cardiology Siemens [id number] OTHER OUTSIDE Ultrasound LAB Machine Specimen Narrative [...] significant changes have occurred. Performing Organization Address [facility] Code P shane Number OTHER OUTSIDE LAB * TROPONIN-I (10/21/2020 9:50 AM CDT) Pathologist [facility] [place] Troponin-I 0.04 0.0 - 0.05 NG/ML [facility]IN [facility] Specimen Blood Performing Organization Address [facility] P shane Number [facility] MAIN [facility] [address] [place] [address] * TROPONIN-I (10/21/2020 5:15 AM CDT) [facility] Troponin-I 0.04 0.0 - 0.05 NG/ML MAIN LAB Specimen Performing Organization Address [facility] P shane Number [facility] MAIN [facility] [address] [place] [address] * CBC (10/21/2020 5:15 AM CDT) [facility] White Blood 10.3 4.5 - 11.0 K/UL [...] MAIN LAB Specimen Blood Performing Organization Address [facility] P shane Number [facility] MAIN [facility] [address] [place] [address] * PROTIME INR (PT) (10/21/2020 5:15 AM CDT) INR 3.7 (H) 0.8 - 1.2 [facility] MA[facility] Specimen Blood Performing Organization Address City/State/ZIP Code P shane Number [facility] MAIN [facility] [address] [place] [address] * COMPREHENSIVE METABOLIC PANEL (10/21/2020 5:15 AM CDT) Pathologist [facility] [place] Sodium 135 (L) 137 - 147 MMOL/L [...] (L) >60 mL/min [facility] Comment: [place] The eGFR is not validated f or use in drug dosing adjustments. Continue to use estimated creatinine clearance per dosing reference text. Please contact the Clinical Pharmacist for questions. eGFR 37 (L) >60 mL/min [facility] [place] Comment: The eGFR is not validated for use in drug dosing adjustments. Continue to use estimated creatinine clearance per dosing reference text. Please contact the Clinical Pharmacist for questions. Specimen Blood Performing Organization Address City/State/ZIP Code P shane Number [facility]IN [facility] [address] [place] [address] * LACTIC ACID(LACTATE) (10/21/2020 5:10 AM CDT) Pathologist [facility] [place] Lactic Acid 1.9 0.5 - 2.0 MMOL/L [facility] Specimen Blood Performing Organization Address City/State/ZIP Code P shane Number [facility] [address] [place] [address] * TRANSFUSE RBC'S (10/20/2020 10:16 PM CDT) [...] LAB MCHC 34.0 32.0 - 36.0 G/DL MAIN LAB RDW 17.7 (H) 11 - 15 % [facility] Platelet Count 171 150 - 400 K/UL [facility] MPV 7.1 7 - 11 FL MAIN LAB Specimen Blood Performing Organization Address City/[facility]/ZIP Code P shane Number MAIN LAB [address] [place] [address] * PHOSPHORUS (10/20/2020 5:12 PM CDT) Phosphorus 3.3 2.0 - 4.5 MG/DL MAIN LAB Specimen Blood Performing Organization Address City/[facility]/ZIP Code P shane Number [facility] MAIN [facility] [address] [place] [address] * MAGNESIUM (10/20/2020 5:12 PM CDT) Magnesium 1.8 1.6 - 2.6 mg/dL MAIN LAB Specimen Blood Performing Organization Address City/[facility]/ZIP Code P shane Number MAIN LAB [address] [place] [address] * TROPONIN-I (10/20/2020 5:12 PM CDT) Troponin-I 0.04 0.0 - 0.05 NG/ML MAIN LAB Specimen Blood Performing Organization Address City/[facility]/ZIP Code P shane Number MAIN LAB [address] [place] [address] * COMPREHENSIVE METABOLIC PANEL (10/20/2020 5:12 PM [...] (L) >60 mL/min [facility] Comment: [place] The eGFR is not validated f or use in drug dosing adjustments. Continue to use estimated creatinine clearance per dosing reference text. Please contact the Clinical Pharmacist for questions. eGFR 49 (L) >60 mL/min [facility] [place] Comment: The eGFR is not validated for use in drug dosing adjustments. Continue to use estimated creatinine clearance per dosing reference text. Please contact the Clinical Pharmacist for questions. Specimen Blood Performing Organization Address City/[facility]/ZIP Code P shane Number MAIN LAB [address] [place] [address] * PTT (APTT) (10/20/2020 5:12 PM CDT) APTT 34.9 24.0 - 36.5 SEC [facility]IN [facility] Specimen Blood Performing Organization Address City/[facility] P shane Number MAIN LAB [address] [place] [address] * PROTIME INR (PT) (10/20/2020 5:12 PM CDT) INR 3.1 (H) 0.8 - 1.2 [facility]IN [facility] Specimen Blood Performing Organization Address City/[facility]/ZIP Code P shane Number [facility] MAIN [facility] [address] [place] [address] * CBC (10/20/2020 5:12 PM CDT) White [...] MAIN LAB Specimen Blood Performing Organization Address City/[facility]/ZIP Code P shane Number [facility] MAIN [facility] [address] [place] [address] * POC GLUCOSE (10/20/2020 5:11 PM CDT) Pathologist [facility] [place] Glucose, POC 152 (H) 70 - 100 MG/DL [facility] Specimen Performing Organization Address City/[facility]/ZIP Code P shane Number [facility] MAIN [facility] [address] [place] [address] * TRANSFUSE RBC'S (10/20/2020 4:37 PM CDT) Specimen Blood * BASIC METABOLIC PANEL (10/20/2020 3:29 PM CDT) Pathologist [facility] [place] Sodium 132 (L) 137 - 147 MMOL/L [...] (L) >60 mL/min [facility] Comment: [place] The eGFR is not validated f or use in drug dosing adjustments. Continue to use estimated creatinine clearance per dosing reference text. Please contact the Clinical Pharmacist for questions. eGFR 52 (L) >60 mL/min [facility] [place] Comment: The eGFR is not validated for use in drug dosing adjustments. Continue to use estimated creatinine clearance per dosing reference text. Please contact the Clinical Pharmacist for questions. Specimen Blood Performing Organization Address City/[facility]/ZIP Code P shane Number [facility] [address] [place] [phone] * COVID-19 (SARS-COV-2) PCR (10/20/2020 12:53 PM CDT) COVID-19 FLOCKED SWAB [facility] (SARS-CoV-2) NASOPHARYNGEAL PCR Source COVID-19 NOT DETECTED DN-NOT DETECTED [facility] (SARS-CoV-2) Comment: PCR This assay is [...] performance characteristics have been verified by the [facility] clinical laboratory. Fact sheet for providers: https://www.fda.gov/media/2623 13/download Fact sheet for patients: https://www.fda.gov/media/1363 12/download Specimen Flocked Swab - Nasopharyngeal Performing Organization Address City/[facility]/ZIP Code P shane Number [facility] [address] [place] [address] * BLOOD TYPE CONFIRMATION - ORDER ONLY IF REQUESTED BY LAB (10/20/2020 11:54 AM CDT) ABO/RH(D) O POS [facility] Specimen Bowel Contents Performing Organization Address City/State/ZIP Code P shane Number [facility] [address] [place] [address] * TYPE & CROSSMATCH (10/20/2020 11:33 AM CDT) Units Ordered 7 [facility] MAIN LAB Crossmatch 10/23/2020,2359 [facility]IN [facility] Expires Record Check 2ND TYPE REQUIRED [facility]IN [facility] ABO/RH(D) O POS [facility] Antibody Screen NEG [facility] Electronic YES [facility]IN [facility] Crossmatch Unit Number [id number] [facility] Blood Component RBC,ADSOL,LEUKO REDUCED,1ST [facility] MAIN L AB Type CONT. Unit Division 00 [facility] MAIN LAB Status OF Unit TRANSFUSED [facility]IN [facility] ISSUE DATE TIME [facility]IN [facility] PRODUCT CODE [id number] [facility] MAIN [facility] BLOOD TYPE O POS [facility] CODING STATUS 5100 [facility] MAIN [facility] BLOOD [id number] [facility] EXPIRATION DATE Transfusion OK TO TRANSFUSE [facility] Status Crossmatch COMPATIBLE,ELECTRONIC [facility] Result Unit Number [id number] [facility] Blood Component RBC,ADSOL,LEUKO REDUCED [facility] Type Unit Division 00 [facility] Status OF Unit TRANSFUSED [facility] ISSUE DATE TIME [id number] [facility] PRODUCT CODE [id number] [facility] BLOOD TYPE O POS [facility] CODING STATUS 5100 [facility] BLOOD [id number] [facility] EXPIRATION DATE Transfusion OK TO TRANSFUSE [facility] Status Crossmatch COMPATIBLE,ELECTRONIC [facility] Result Unit Number [id number] [facility] Blood Component RBC,ADSOL,LEUKO REDUCED [facility] Type Unit Division 00 [facility] Status OF Unit TRANSFUSED [facility] ISSUE DATE TIME [id number] [facility] PRODUCT CODE [id number] [facility] BLOOD TYPE O POS [facility] CODING STATUS 5100 [facility] BLOOD [id number] [facility] EXPIRATION DATE Transfusion OK TO TRANSFUSE [facility] Status Crossmatch COMPATIBLE,ELECTRONIC [facility] Result Unit Number [id number] [facility] Blood Component RBC,ADSOL,LEUKO REDUCED,2ND [facility] MAIN L AB Type CONT. Unit Division 00 [facility] Status OF Unit TRANSFUSED [facility] ISSUE DATE TIME [id number] [facility] PRODUCT CODE [id number] [facility] BLOOD TYPE O POS [facility] CODING STATUS 5100 [facility] BLOOD [id number] [facility] EXPIRATION DATE Transfusion OK TO TRANSFUSE [facility] Status Crossmatch COMPATIBLE,ELECTRONIC [facility] Result Unit Number [id number] [facility] Blood Component RBC,ADSOL,LEUKO REDUCED [facility] Type Unit Division 00 [facility] Status OF Unit TRANSFUSED [facility] ISSUE DATE TIME [facility]IN [facility] PRODUCT CODE [id number] [facility] BLOOD TYPE O POS [facility] CODING STATUS 5100 [facility] BLOOD [id number] [facility] EXPIRATION DATE Transfusion OK TO TRANSFUSE [facility] Status Crossmatch COMPATIBLE,ELECTRONIC [facility] Result Unit Number [id number] [facility] Blood Component RBC,ADSOL,LEUKO REDUCED [facility] Type Unit Division 00 [facility] Status OF Unit TRANSFUSED [facility] ISSUE DATE TIME [facility] PRODUCT CODE [id number] [facility] BLOOD TYPE O POS [facility] CODING STATUS 5100 [facility] BLOOD [id number] [facility] EXPIRATION DATE Transfusion OK TO TRANSFUSE [facility] Status Crossmatch COMPATIBLE,ELECTRONIC [facility] Result Specimen Lung Performing Organization Address [facility]/ZIP Code P shane Number [facility] MAIN LAB [address] [place] [phone] * POC PT/INR (10/20/2020 9:13 AM CDT) INR POC 2.8 (H) 0.8 - 1.2 [facility]IN [facility] Specimen Performing Organization Address [facility] P shane Number [facility] MAIN [facility] [address] [place] [phone] * MAGNESIUM (10/20/2020 9:07 AM CDT) Magnesium 1.8 1.6 - 2.6 mg/dL [facility] Specimen Performing Organization Address City/[facility]/ZIP Code P shane Number [facility] MAIN [facility] [address] [place] [address] * PROTIME INR (PT) (10/20/2020 9:07 AM CDT) INR 3.2 (H) 0.8 - 1.2 [facility]IN [facility] Specimen Performing Organization Address [facility] Code P shane Number [facility] MAIN [facility] [address] [place] [address] * BLUE TOP TUBE (10/20/2020 9:07 AM CDT) Specimen Performing Organization Address City/[facility]/ZIP Code P shane Number KU LAB RESULTS [...] (L) >60 mL/min [facility] Comment: [place] The eGFR is not validated f or use in drug dosing adjustments. Continue to use estimated creatinine clearance per dosing reference text. Please contact the Clinical Pharmacist for questions. eGFR 50 (L) >60 mL/min [facility] [place] Comment: The eGFR is not validated for use in drug dosing adjustments. Continue to use estimated creatinine clearance per dosing reference text. Please contact the Clinical Pharmacist for questions. Specimen Blood Performing Organization Address City/State/ZIP Code P shane Number [facility] MAIN [facility] [address] [place] [address] * CBC (10/20/2020 9:07 AM CDT) White [...] LAB MCHC 34.7 32.0 - 36.0 G/DL [facility] MAIN [facility] RDW 21.9 (H) 11 - 15 % [facility] MAIN [facility] Platelet Count 200 150 - 400 K/UL MAIN LAB MPV 7.2 7 - 11 FL [facility] MAIN [facility] Specimen Blood Performing Organization Address City/State/ZIP Code P shane Number MAIN LAB [address] [place] [address] * TELEMETRY STRIPS-SCAN (10/20/2020 12:00 AM CDT) [...] 0846, Until Toya 10/26/20 at 1248, Indigestion/Heartburn 10/22/2020 2:12 AM CDT 0.5 mg/min 17 mL/hr amiodarone (CORDARONE) 360 mg in Given - New dextrose, iso-osm 200 mL infusion Bag 200 mL, 0.5-1 mg/min (16.6667-33.3333 mL/hr, rounded to 17-33 mL/hr), at 17-3 3 mL/hr, Intravenous, TITRATE DIRECTED , Starting on Fri10/20/20 at 1745, Until [place] 10/22/20 at 1030, Initiat e infusion at 1 [...] , Starting on Fri10/25/20 at 1745, Until Fri10/26/20 at 1248, Weight-Based Heparin Algorithm (fluid restricted [...] Starting o n Fri10/20/20 at 1330, Until [place] 10/22/20 a t 0218, Initiate at 50 mcg/hr [...] Take 37.5 mg Removed from by mouth [facility] Med List every 48 hours. 08/01/2020 10/26/2020 [...] DAILY, First Angie RN)17 58 dose on [place] 10/22/20 at 1145, Until (Given - Provider: [...] Elizabeth Stafford RN - Reason: Patient Refused) 07 (Given - Provider: Shalonda Santizo RN - [...] al 10/23/20 at 2100, Until Discontinued, Do Nydia RN) not crush or chew tablet. 0928 (Given - Provider: Shalonda Santizo RN )1413 (Given - Provider: Shalonda Santizo RN)2100 (Given - Provider: Elizabeth Stafford RN) 0812 (Given - Provider: Shalonda Santizo RN ) potassium chloride SR (K-DUR) tablet 20 0838 (Given - mEq Provider: Nupur 20 mEq, Oral, THREE TIMES DAILY, First Angie RN)1 517 dose on Fri10/22/20 at 1145, Until (Given - Provider: Discontinued, - Tablet may be dispersed Lilly valenzuela in water. Place tab in 30 mL of water RN)2020 (Given - for 40-60 seconds. - Gently swirl Provider: Kaye e until fully dispersed. If particles CHRYSTAL Stafford) [...] Administered bumetanide (BUMEX) tablet 2 mg 1 2 021 10/21/2020 diphenhydrAMINE (BENADRYL) injection 25 2 [...]
--- OUTSIDE RECORDS SUMMARY | 2020-12-13 12:05 | XMS REPORT | Encounter Summary ---
Author Author [facility] Organization [facility] Address Unknown Phone Unavailable Care Team Providers Care Steerer Name Role Phone Self, Garfield OLVERA PCP Riley Hopson MD 3 Reason for Visit * Auth/Cert Referred By Contact Referred To Contact Status Reason Specialty Diagnoses / Procedures Diagnoses Chronic heart failure with preserved ejection fraction (HCC) Procedures [place] UNLISTED CARDIOVASCULAR SERVICE/PROCEDURE CATHETERIZATION RIGHT HEART WITH INSERTION PULMONARY ARTERY SENSOR Encounter Details Care Team Description Date Type Department Javi Tillman MD [address] [place] [address] 10/21/2020 Hospital Cardiology:Center f or Encounter [facility] 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 07/18/2020 10/26/2020 bumetanide (BUMEX) 2 mg Take 2.5 150 tablet 3 tablet tablets by mouth twice daily. 10/26/2020 11/15/2020 enoxaparin (LOVENOX) 60 Inject 0.6 mL 14 each 0 mg syringe under the skin every 12 hours. 10/12/2020 10/26/2020 enoxaparin (LOVENOX) 60 Inject 0.6 mL 20 each 0 mg syringe under the skin every 12 hours for 10 days. 10/24/2020 FERROUS GLUCONATE PO Take 37.5 mg 0 by mouth every 48 hours. 08/14/2020 11/15/2020 metOLazone (ZAROXOLYN) Take one 40 tablet 1 2.5 mg tabletIndications: tablet by Chronic heart failure mouth twice with preserved ejection weekly. Take fraction (HCC) on Friday and Friday. When directed, take 30-60 minutes prior to your Bumex. 08/08/2020 10/26/2020 metoprolol tartrate Take one-half 90 tablet 3 (LOPRESSOR) 25 mg tablet tablet by mouth twice daily. 11/15/2020 ondansetron (ZOFRAN) 4 mg Take 4 [...] mg 0 mg tablet by mouth daily. 08/01/2020 10/26/2020 spironolactone Take one 90 tablet 3 (ALDACTONE) 100 mg tablet tablet by mouth daily for 360 days. Take with food. 06/12/2020 10/26/2020 warfarin (COUMADIN) 2.5 Take one 30 tablet 0 mg tablet tablet by mouth daily. Take as directed by physician managing INR. 10/26/2020 11/15/2020 warfarin (COUMADIN) 5 mg Take [...] [facility] On [facility] (10/23/2020 Yes [place], 1:06 PM CDT) CHRYSTAL Singh documented as [...] Until 10/21/20 at 0957, For Procedure, A promotional marketing analyst may only administer Definity through a saline lock. If IV is in use or a port, PICC, or central line is being used a nurse must administer. NOTE: This is a HIGH ALERT Medication., MAC Procedure Area Only - Medications documented in this encounter Additional Health Concerns Assessment Noted Time A fall risk assessment has been completed for the pat ient 10/21/2020 7:43 PM CDT PHQ-2 Depression Total Score: 0 08/24/2020 7:42 AM CDT documented as of this encounter
--- OUTSIDE RECORDS SUMMARY | 2020-12-13 12:06 | XMS REPORT | Encounter Summary ---
Author Author [facility] Organization [facility] Address Unknown Phone Unavailable Care Team Providers Care Cell Tuber Hand Name Role Phone Self, Garfield OLVERA PCP Riley Hopson MD 3 Encounter Details Care Team Description Date Type Department Kathi Chen RN 10/19/2020 Prep for Case Cardiology: [facility] 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 [facility] On track (10/23/2020 Yes [place], 1:06 [...]
--- OUTSIDE RECORDS SUMMARY | 2020-12-13 12:06 | XMS REPORT | Encounter Summary ---
Author Author [facility] Organization [facility] Address Unknown Phone Unavailable Care Team Providers Care Diesel Locomotive Firer/Fireman Name Role Phone Self, Garfield OLVERA PCP Riley Hopson MD 3 Reason for Visit * Auth/Cert Referred By Contact Referred To Contact Status Reason Specialty Diagnoses / Procedures Diagnoses Chronic heart failure with preserved ejection fraction (HCC) Procedures MD UNLISTED CARDIOVASCULAR SERVICE/PROCEDURE CATHETERIZATION RIGHT HEART WITH INSERTION PULMONARY ARTERY SENSOR Encounter Details Care Team Description Date Type Department Nadege Davis MD [address] [place], [place] [id number] [place], [place] [id number] Not Performed CATHETERIZATION RIGHT HEART WITH INSERTION PULMONARY ARTERY SENSOR 10/20/2020 Surgery Laboratory: [facility] [address] [place] [address] 2, [address] [place] [address] Social History Date Tobacco Use Types Packs/Day Years Used Never Smoker Smokeless Tobacco: Never Used Comments Alcohol Use Standard Drinks/Week Not Currently 0 (1 standard drink = 0.6 o z pure alcohol) Sex Assigned at Date Recorded Female 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 Patient is [...] Hospital Follow Up with [facility] Cardiology: [facility] (CVM Exam) [address], [address] [facility] [address] Nov 15, 2020 2:15 PM (Arrive by 2:00 PM) Procedure with [facility] Laboratory: [facility] (--) [address] [address] Nov 15, 2020 2:30 PM Return Patient with [facility] Cardiology: [facility] (CVM Exam) [address] [address] Dec 19, 2020 12:00 PM Return Patient with Allison Marti MD Transplant: [facility], [facility] ([facility]) [address], [address] [facility] [address] Consults, Procedures, Diagnostics, Micro, Pathology Consults: Cardiology and Hepatology Surgical Procedures & Dates: None Significant Diagnostic Studies, Micro and Procedures: noted in brief hospital co urse Significant Pathology: noted in brief hospital course Nutrition: Dietitian Documentation Muscle Wasting: Yes Moderate Clavicle, Mormonism Edema: No Discharge Disposition, Condition Patient Disposition: Home Condition at Discharge: Stable Code Status Code Status History Date Active Date Inactive Code Status Order ID 10/20/2020 1221 10/26/2020 1253 Full Code [id number] Vijaya Millard MD Inpatient 10/20/2020 0846 10/20/2020 1221 Full Code [id number] Crissy Gould PA-C I npatient Only showing the last 2 code statuses. Patient Instructions PROTIME INR (PT) Standing Status: Future Standing Exp. Date: 10/26/21 Which provider would you like to CC? SHRUTI NEWBERRY [[id number]] Release to patient Immediate BASIC METABOLIC PANEL Standing Status: Future Standing Exp. Date: 10/26/21 Which provider would you like to CC? SHRUTI NEWBERRY [[id number]] Release to patient Immediate Cardiac Diet Limiting [...] To register for smoking cessation program call [phone] or visit www.smokefree.gov Diabetes Risk Goal: Non-diabetic: [...] you can call a conchita carmona at [phone] Physical Activity Risk Goal: Patients should have approval by a physician prior to beginning an exercis e program. Plan: Try to get at least 30 minutes of moderate physical activity five days a w [place] or 20 minutes of vigorous physical activity [...] HOURS (8:00 AM - 4:30 PM): Call [phone] and asked to be transferred to your discharge attending physic mg. - AFTER BUSINESS HOURS (4:30 PM - 8:00 AM, on weekends, or holidays): Call [phone] and ask the top precipitator operator to page the on-call doctor for the discha rge attending physician. Discharging attending physician: NADEGE DAVIS [[id number]] Procedure Specific Activity *Resume your normal activity in 2 days. Incision Care *Call if there is an increase in pain, swelling, or redness. *DO NOT soak incision in water. *NO tub baths, hot tubs, or swimming. *You may shower after discharge. Testing Not Required for Covid-19 Questions About Your Stay For questions or concerns regarding your hospital stay, call [phone]. Discharging attending physician: DUYEN ARROYO [[id number]] Appointment Request: Cardiology Heart Failure Please arrange Telehealth f/u with [facility] team. Thanks. Was decompensated heart failure the [...] Ordering Provider's or Responsible Teams's Pager #? [phone] Additional Orders: Case Management, Supplies, Home Health Home Health/DME None Signed: Duyen Arroyo DO 10/26/2020 cc: Primary Care Physician: Garfield Gray Referring physicians: Nithya Madison, ATA* Additional provider(s): Did we miss something? If additional records are needed, please fax a request on office letterhead to [phone]. Please include the patient's name, date of b irth, fax number and type of information needed. Additional request can be made by email at [email or web address]. For general questions of information about electronic records sharing, call [phone]. documented in this encounter Medications at Time [...] in this encounter Progress Notes * Shalonda Santzio RN - 10/26/2020 10:12 AM CDT Zaria [...] follow up/discharge instructions, occurred wi th patient [id number]. Duyen Arroyo DO 10/26/2020 Discharge Planning: greater [...] severe TR, Cirrhosis, nonischemic cardiomyopathy ([facility] 05/2020 no CAD), Mechanical aortic valve [...] mg po bid starting 10/26/20 (ordere d). SHAFT TENDER she has been taking Bumetanide 5 mg [...] 10/24/2020. INR 1.8 on 10/24/20. 5. Recommend Scrubber System Attendant consultation to discuss sodium restricted diet as [...] Shruti Newberry PA-C Department of Cardiovascular Medicine [facility] Available on Voalte/AMS/Pager [phone] Assessment: Acute on Chronic diastolic HFpEF, EF: 60% NYHA class III, ACC Stage C/predomina ntly RV failure Major Complications or Comorbidities ([facility]): acute/ acute on chronic systolic and /or [...] kg (132 lb 6.4 oz) Recommendations: GDMT SHAFT TENDER Changes BB Lopressor 12.5 mg twice daily [...] by Higinio Clarke MD at [facility] POSSIBLE PERCUTANEOUS CORONARY STENT PLACEMENT WITH ANGIOPLASTY N/A Performed by Higinio Clarke MD at [facility] ESOPHAGOGASTRODUODENOSCOPY WITH SPECIMEN COLLECTION BY BRUSHING/ WASHING [...] 500 mg by mouth daily. Past [place] bumetanide (BUMEX) 2 mg tablet Take 2.5 tablets by mouth twice daily. 150 ta blet 3 Past Week calcium carbonate (OS-KRUPA) 1250 mg tablet Take 1,250 mg by mouth daily. Pa [] enoxaparin (LOVENOX) 60 mg syringe Inject [...] implantation, procedure deferred for now - Hold SHAFT TENDER aldactone, bumex, metolazone, metoprolol due to severe [...] hours. Duyen Arroyo, DO Internal Medicine Med [facility] Subjective Zaria Paulson is a [...] PER MINUTE (10/25 830) SpO2: 100 % (08/04 0831) SpO2 Pulse: 99 (10/25 0400) BP: (84-98)/(52-66) Temp: [36.6 C (97.8 F)-37.1 [...] m oderate ascites and body wall edema -SHAFT TENDER Bumex 5 mg BID, Spironolactone 100 mg [...] seen/discussed with Dr. Ok Dominguez GI Fellow 7808 PMH: Medical History: Diagnosis Date Cancer (HCC) [...] by Higinio Clarke MD at [facility] POSSIBLE PERCUTANEOUS CORONARY STENT PLACEMENT WITH ANGIOPLASTY N/A Performed by Higinio Clarke MD at [facility] ESOPHAGOGASTRODUODENOSCOPY WITH SPECIMEN COLLECTION BY BRUSHING/ WASHING N/A 10/21/2020 Performed by Cosmo Gomez MD at [facility] ENDO SIGMOIDOSCOPY WITH CONTROL OF BLEEDING - FLEXIBLE N/A 10/21/2020 Performed by Cosmo Gomez MD at [facility] ENDO SIGMOIDOSCOPY WITH DIRECTED SUBMUCOSAL INJECTION - FLEXIBLE 10/21/2020 Performed by Cosmo Gomez MD at [facility] ENDO SH: Social History Socioeconomic History Marital [...] GI b leeding, please page 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 Consider future EGD to evaluate for Castellanos's. [...] severe TR, Cirrhosis, nonischemic cardiomyopathy ([facility] 05/2020 no CAD), Mechanical aortic valve [...] Cr. Is improvi ng. Consider transitioned to SHAFT TENDER dose to bumetanide 2.5 mg p.o. twice [...] 10/24/2020. INR 1.8 on 10/24/20. 6. Recommend Scrubber System Attendant consultation to discuss sodium restricted diet as [...] Shruti Newberry PA-C Department of Cardiovascular Medicine [facility] Available on Voalte/AMS/Pager [phone] Assessment: Acute on Chronic diastolic HFpEF, EF: 60% NYHA class III, ACC Stage C/predomina ntly RV failure Major Complications or Comorbidities ([facility]): acute/ acute on chronic systolic and /or [...] kg (131 lb 12.8 oz) Recommendations: GDMT SHAFT TENDER Changes BB Lopressor 12.5 mg twice daily [...] by Higinio Clarke MD at [facility] POSSIBLE PERCUTANEOUS CORONARY STENT PLACEMENT WITH ANGIOPLASTY N/A Performed by Higinio Clarke MD at [facility] ESOPHAGOGASTRODUODENOSCOPY WITH SPECIMEN COLLECTION BY BRUSHING/ WASHING [...] 500 mg by mouth daily. Past [place] bumetanide (BUMEX) 2 mg tablet Take 2.5 tablets by mouth twice daily. 150 ta blet 3 Past Week calcium carbonate (OS-KRUPA) 1250 mg tablet Take 1,250 mg by mouth daily. Pa st Week [] enoxaparin (LOVENOX) 60 mg syringe [...] Signs: 24 Hour Range BP: 95/56 (10/24 1332) Temp: 36.6 C (97.8 F) (10/24 121) Pulse: 102 (10/24 1333) Respirations: 18 PER MINUTE (10/24 121) SpO2: [...] implantation, procedure deferred for now - Hold SHAFT TENDER aldactone, bumex, metolazone, metoprolol due to severe [...] Reviewed Duyen Arroyo DO * Heaven Lewis, PHARMD - 10/24/2020 8:39 AM CDT Pharmacy [...] Plan: 1. Will re-initiate patient on her SHAFT TENDER dose of 5mg. Discussed with provider an [...] implantation, procedure deferred for now - Hold SHAFT TENDER aldactone, bumex, metolazone, metoprolol due to severe [...] 10/19 PM. - INR on admission 2.8 /2 - S/p 1 unit of FFP due [...] hours) at 10/23/2020927 Last data filed at 10/22/20202120 Gross per 24 hour Intake 1250 ml [...] m oderate ascites and body wall edema -SHAFT TENDER Bumex 5 mg BID, Spironolactone 100 mg [...] seen/discussed with Dr. 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 Can consider future EGD to evaluate for Castellanos's. Will defer to primary hepatol ogist. She needs a colonoscopy in May 2021 given remaining polyp. We will check AFP with a.m. labs. She is due for HCC screening with cross-secti onal imaging next month. Management of heart failure per cardiology. Staff name: Rachael Euceda MD Date: 10/24/2020 * Claudette Walton, [employer] - 10/23/2020 7:57 AM CDT Heart Failure [...] be severely anemic and was admitted to [facility] for acute GI bleed. She has medical history significant for cirrho sis, heart failure with preserved ejection fraction (60%), nonischemic cardiomyo yolanda ([facility] 05/2020 no CAD), mechanical aortic valve [...] received 5 units PRBCs and ffp. Consult ranch supervisor: albumin 2.9. Patient was seen and examined with Dr.Vidic Claudette Walton, HF, [employer] [id number] Assessment: Acute on Chronic diastolic HFpEF, EF: [...] changes have occurred. Major Complications or Comorbidities ([facility]): acute/ acute on chronic systolic and /or [...] vitals filed for this visit. Recommendations: GDMT SHAFT TENDER Changes BB Lopressor 12.5 mg twice daily [...] Yes Strict I/O. Standing scale daily weight. Scrubber System Attendant consultation to discuss sodium restricted diet recommended. [...] by Higinio Clarke MD at [facility] POSSIBLE PERCUTANEOUS CORONARY STENT PLACEMENT WITH ANGIOPLASTY N/A Performed by Higinio Clarke MD at [facility] Family History Problem Relation Age of Onset [...] Intensity Pain Scale (Self Report): Asleep (10/22/20 5468) Wt Readings from Last 10 Encounters: 10/21/20 [...] implantation, procedure deferred for now - Hold SHAFT TENDER aldactone, bumex, metolazone, metoprolol due to severe [...] problem Duyen Arroyo, DO Internal Medicine Med [facility] Subjective Zaria Paulson is a [...] 99 (10/22 599) Respirations: 20 PER MINUTE (08/01 0451) SpO2: 96 % (10/22 599) SpO2 Pulse: [...] EKG Reviewed Duyen Arroyo DO * Claudette Walton, [employer] - 10/22/2020 7:39 AM CDT Heart Failure [...] be severely anemic and was admitted to [facility] for acute GI bleed. She has medical history significant for cirrho sis, heart failure with preserved ejection fraction (60%), nonischemic cardiomyo yolanda ([facility] 05/2020 no CAD), mechanical aortic valve [...] and examined with Dr.Vidic Claudette Walton, , [employer] [id number] Assessment: Acute on Chronic diastolic HFpEF, EF: [...] changes have occurred. Major Complications or Comorbidities ([facility]): acute/ acute on chronic systolic and /or [...] vitals filed for this visit. Recommendations: GDMT SHAFT TENDER Changes BB Lopressor 12.5 mg twice daily [...] Yes Strict I/O. Standing scale daily weight. Scrubber System Attendant consultation to discuss sodium restricted diet recommended. [...] by Higinio Clarke MD at [facility] POSSIBLE PERCUTANEOUS CORONARY STENT PLACEMENT WITH ANGIOPLASTY N/A Performed by Higinio Clarke MD at [facility] Family History Problem Relation Age of Onset [...] %] Intensity Pain Scale (Self Report): 5 (10/21/201) Wt Readings from Last 10 Encounters: 10/21/20 [...] the treatment plan as outlined by the [employer] The Complexity of medical decision making is [...] with my edits as outlined below. Staff housekeeping/laundry supervisor: DO Jalen Jaimes Nizar T, MD - [...] 10/20/20 0907 10/20/20 1529 10/20/20 1712 10/20/20 17110/21/20 0515 10/21/20 0515 10/22/20 0312 NA 133* [...] Labs 10/20/20 0910/20/20 0910/20/20 1529 10/20/20 1529 10/20/20171110/20/20171110/21/20 0515 NA 133* < > 132* -- [...] status Cosmo Gomez Gastroenterology/Transplant Hepatology * Rachael Metha RN - 10/21/2020 4:01 PM CDT Follow [...] implantation, procedure deferred for now - Hold SHAFT TENDER aldactone, bumex, metolazone, metoprolol due to severe [...] of which greater than 50% was spent [id number] with the patient in care coordination (reviewing the records, angella nieves, documentation, discussion with the nurse, case management rn and the social work , discussion with decorating consultant services) and bedside counseling. Subjective Zaria [...] 10/20/2020 6:34 PM CDT Pt transported to [facility] on bedside monitor following Rapid response. [...] ell as medication management. J[facility] Tillman [facility] Clinical Concrete Paving Supervisor Internal Medicine, [facility] Medicine Pager: [phone] * Yahaira Hewitt RN - 10/20/2020 5:09 [...] 10/20/2020 10:00 AM CDT On arrival to [facility] pt mentioned she had been experiencing [...] fraction, nonischemic cardiomyopathy,s/paortic valve replacement x3 (on compotype operator shantanu anticoagulation for mechanical valve),paroxysmal atrial fibrillation, hy pertension, previous endocarditis,iron deficiency anemia (IV iron given), compotype operator shantanu kidney disease,hypothyroidism, depression, non-Hodgkins lymphoma and [...] since Saturday 10/14 and was started on Juanpalbo enox which she has continued, last dose [...] hemorrhoids. Crissy Gould PA-C Interventional Cardiology Pager [phone] * Adriana Leblanc RN - 10/19/2020 9:14 AM CDT Cardiovascular Labs Scheduling Checklist 1. Date of procedure:10/20 2. Arrival time: 0900 3. Patient instructed NPO after MN; clear liquids until: 0800 4. Instructed to [facility] desk and bring phot o id, insurance cards and a current list of home medications. Pack an overnight bag in the event you are admitted overnight: Y 5. If you have a history of sleep apnea and use a C-Pap or Bi-Pap machine, pleas e bring it with you to the hospital: N 6. Have a waste collection driver available upon discharge as you may not be cleared to drive for 24 or 48 hours post procedure. (exception is RHC/biopsy patient with internal j ugular approach not receiving sedation): Y 7. If the patient's language preference is other than Kinyarwanda, please indicated [place] language and need for hide splitter: N 8. Patient instructed to drink 64 [...] No need for bowel prep, will ad sample worker enema tomorrow - Transfuse to keep Hb>7, 2 units ordered for now. Patient consented - Last iron infusion in August 2020. EGD in May 2020 essentially normal. C-scope in May 2020 with angiectasia, treated with argon plasma. Chronic HFpEF without acute exacerbation Pulmonary HTN with chronic cor pulmonale - Originally presented for CardioMEMs implantation, procedure deferred for now - Hold SHAFT TENDER aldactone, bumex, metolazone, metoprolol due to severe [...] - Discussed with patient. - Admit to [facility] with hepatology and heart failure consults. Total 70 minutes spent in patient care performing history and physical, clarifyi ng medical history, reviewing prior visits with patient, checking facts, reviewi ng recommendations, placing orders for admission, 35 minutes were spent in couns eling and coordination of care. An additional 40 minutes were spent reviewing records in [facility] and prior hospital izations, clinic visit notes and labs and imaging results. __ Primary Care Physician: Garfield Gray Verified Chief Complaint: Bright red blood per rectum. History of Present Illness: Zaria Paulson is a 60 y.o. female with history of liver cirrhosis, HFpEF, NICM, S/P mechanical aortic valve on coumadin, atrial f ibrillation and previously treated non-Hodgkin's lymphoma who [facility] of CardioMEMs but was found [...] was lightheaded when she got her up [facility] in the day. Blood pressure tends [...] by Higinio Clarke MD at [facility] POSSIBLE PERCUTANEOUS CORONARY STENT PLACEMENT WITH ANGIOPLASTY N/A Performed by Higinio Clarke MD at [facility] Family History Problem Relation Age of Onset [...] C (97.9 F) (10/20 0913) Pulse: 105 (10/20 1200) Respirations: 20 PER MINUTE (10/20 1200) SpO2: 98 % (10/20 1200) SpO2 Pulse: 100 (10/21 1199) BP: (83-101)/(51-60) [...] Ref Range Units Ordered 2 Crossmatch Expires 10/23/2020,1402 Record Check 2ND TYPE REQUIRED ABO/RH(D) O POS Antibody Screen NEG Electronic Crossmatch YES Unit Number [id number] Blood Component Type RBC,ADSOL,LEUKO REDUCED,1ST CONT. Unit Division 00 Status OF Unit ISSUED ISSUE DATE TIME [id number] PRODUCT CODE [id number] BLOOD TYPE O POS CODING STATUS 5100 [...] below. Crissy Gould PA-C Interventional Cardiology Pager [phone] Progress Notes Nithya Madison (Nikki), [employer] (Nurse Practitioner) Nurse Family Olivia 10/12/20 1130 Signed Date of Service: 10/12/2020 Zaria Paulson is a 60 y.o. female. She is followed by Dr. Longo HPI Her past medical history is significant for heart failure with preserved ejectio n fraction, nonischemic cardiomyopathy, s/p aortic valve replacement x3 (on compotype operator shantanu anticoagulation for mechanical valve), paroxysmal atrial fibrillation, hyp ertension, previous endocarditis, iron deficiency anemia -received IV iron, compotype operator shantanu kidney disease, hypothyroidism, depression, non-Hodgkins lymphoma [...] WITH RIGHT AND LEFT HEART CATHETERIZATION N/A 3/ Performed by Higinio Clarke MD at [facility] POSSIBLE PERCUTANEOUS CORONARY STENT PLACEMENT WITH ANGIOPLASTY N/A 1 Performed by Higinio Clarke MD at [facility] Family History Problem Relation Age of Onset [...] EF of 60%. -GDMT:Spironolactone 100 mg daily, Sjaoj9dn twice daily, metolazone 2.5 mg twice weekly [...] concerns prior to the next appointment. Total [id number]. Estimated counseling [id number]. Thank you for allowing me to participate in the care of this patient. If you hav e any questions please do not hesitate to contact our office. Berna Madison, DNP, [employer], [employer]-C Collaborating Physician: Dr. Ramo Lamb [facility] Current Medications (including today's revisions) ascorbic [...] documented in this encounter Consult Notes * Cain, Brigitte - 10/24/2020 2:57 PM CDT Associated Order(s): [...] trying to finish a can o f [employer] O's. She reports she has had low [...] synthroid, zofran, protonix; Oral Diet Order: Cardiac;Diabetic 3720-8022 Kcal/day (60 g carb/meal, 30 g carb/ HS snack); Current Oral Intake: Marginally Adequate Estimated Calorie Needs: 1800(30kcal/kg/present wt) Estimated Protein Needs: 72-84(1.2-1.4g/kg/present wt) Malnutrition Assessment: Does not meet criteria; ; ; ; ; Nutrition Focused Physical Assessment: ; ; Muscle Wasting: Yes; Severity: Moderate; Location: Clavicle, Mormonism Edema: No; ; Pressure Injury: none noted [...] Within 72 hours Brigitte Barlow, MS, RD, ELECTROTYPER, LD, CCTD Office: [phone] Available on Voalte * Claudette Walton APRN-TWYLA - 10/21/2020 8:23 AM CDT Associated Order(s): [...] be severely anemic and was admitted to [facility] for acute GI bleed. She has medical history significant for cirrho sis, heart failure with preserved ejection fraction (60%), nonischemic cardiomyo yolanda ([facility] 05/2020 no CAD), mechanical aortic valve implanted in 2010 on warfarin , atrial fibrillation and previously treated non-Hodgkin's lymphoma. She has se gabriela Longo for initial consultation on 08/01/2020, was last seen in clinic on 10/12 by Nithya Los, [employer]. Recommendations: Echo today EKG Troponin Transfer to [...] and examined with Dr.Vidic Claudette Walton, HF, [employer] [id number] Assessment: Acute on Chronic diastolic HFpEF, EF: 60% on last echo 05/22/2020. Repeat echo p ending today. Major Complications or Comorbidities ([facility] acute/ acute on chronic systolic and /or [...] vitals filed for this visit. Recommendations: GDMT SHAFT TENDER Changes BB Lopressor 12.5 mg twice daily [...] Yes Strict I/O. Standing scale daily weight. Scrubber System Attendant consultation to discuss sodium restricted diet recommended. [...] by Higinio Clarke MD at [facility] POSSIBLE PERCUTANEOUS CORONARY STENT PLACEMENT WITH ANGIOPLASTY N/A Performed by Higinio Clarke MD at [facility] Family History Problem Relation Age of Onset [...] (10/21 1252) Respirations: 27 PER MINUTE (10/21 125) SpO2: 95 % (10/21 125) SpO2 Pulse: 100 (10/21 0633) Height: 157.5 [...] 4.31 (05/22/20) 6.56 (05/22/20) 1.21 (05/22/20) 1.30 (03/01/21) 64 Associated attestation - Shanell Ybarra DO [...] the treatment plan as outlined by the [employer] The Complexity of medical decision making is [...] with my edits as outlined below. Staff housekeeping/laundry supervisor: DO Jalen Jaimes Christopher, MD - 10/20/2020 [...] m oderate ascites and body wall edema -SHAFT TENDER Bumex 5 mg BID, Spironolactone 100 mg [...] remains stable overnight -CLD today, NPO at IN -No PO bowel prep. Will need tap water enema tomorrow morning prior to procedure -Maintain 2 large bore IVs -IV PPI BID -Octreotide bolus and gtt -Ceftriaxone for SBP prophylaxis -Hold diuretics -Hold warfarin and Lovenox Patient seen/discussed with Dr. Patricia Cool GI fellow Pager [phone] 10/20/2020 3:15 PM PMH: Medical History: Diagnosis [...] Performed by Higinio Clarke MD at [address] [facility] POSSIBLE PERCUTANEOUS CORONARY STENT PLACEMENT WITH ANGIOPLASTY N/A Performed by Higinio Clarke MD at [address] [address] SH: Social History Socioeconomic History Marital status: [...] AM CDT Case Management Progress Note NAME:Zaria Paulosn : AGE: 60 y.o. ADMISSION DATE: 10/20/2020 DAYS ADMITTED: LOS: 6 days Todays Date: 10/26/2020 Plan D/c home today Pt lives in [facility] with her SO of 6 years. Pt reports she was independ ent with most cares SHAFT TENDER. She does not drive. Pt will have transport home provided by her SO Catarino. He will be coming from [facility]. Pt was on warfarin SHAFT TENDER. She had her housekeeping/laundry supervisor Riley Hopson following inrs/coum marco dosing. Pt [...] provide transport. he will be coming from [place]. Does the patient use Medicaid Transportation?: No Next Level of Care (Acute Psych discharges only) Discharge Disposition Selected Continued Care - Admitted Since 10/20/2020 No services have been selected for the patient. Gavi Nobles Integrated Nurse Bag Machine Operator Bsn Rn-[facility] [phone] Pager [phone] * Care Coordination-Inpatient - Caitlin Esparza RN [...] ulcers). Hepatology Follow-ups: No changes made to SHAFT TENDER schedule Hepatology appt. Appointment Date/Time: 12/19/2020 @ 12pm Appointment Provider: Dr Allison Marti. [facility] Director Follow up: Labs Labs: CBC ordered and faxed to patient's preferred lab [facility] in [facility]. Hospital is currently closed, but lab services are still available. Order fax ed to number provided by service representative when called to verify lab services at [facility] location. . Clinic fax number placed on order for results t o be sent back to. Fax confirmation received. Due Date: Approx 11/02/2020 Education addressed: Phoned patient prior to today's DC and introduced myself a nd the role of inpatient nurse coordinator. Reviewed above DC plan. Reviewed sig ns/symptoms of GI bleeding. If bleeding occurs she was instructed to return to l al ER for evaluation. She verbalized understanding. Encouraged patient/family to call the clinic with any hepatology needs after discharge. [phone]. ~Will be available if patient needs anything from a hepatology standpoint while in the hospital Friday through Friday 7am-5pm ~Discharge information to be sent to the hepatology provider & team that will follow with patient in the outpatient clinic. Rachael Esparza RN-BSN Inpatient Hepatology Nurse Coordinator Pgr: [phone] [facility] [phone] * Care Plan - Shalonda Santizo RN [...] Outcome: Goal Ongoing 10/26/2020 0637 by Elizabeth tSafford RN Outcome: Goal Ongoing Goal: Healing of [...] Goal Ongoing * Lilly Montano RN - 10/24/2020 7:21 PM CDT Problem: [...] any assist is needed. Pt lives in [facility] with her SO of 6 years. Pt reports she was independ ent with [facility] cares SHAFT TENDER. She does not drive. Pt will have transport home provided by her SO aCtarino. He will be coming from [facility]. Pt has used HH and home infusion in the past, but could not remember the name of the companies. Pt was on warfarin SHAFT TENDER. She had her housekeeping/laundry supervisor Riley Hopson following inrs/coum marco dosing. Pt reports that sometimes her HF team would follow it and adjust he r coumadin. Plan: holding warfarin today. Monitoring pt when back on warfarin and adjust as needed pending INRs. Pending d/c . Will follow. Patient Address/Phone [address] [facility] [phone] (home) Emergency Contact Extended Emergency Contact Information Primary Emergency Contact: Catarino Westfall Mobile Relation: Significant Other Secondary Emergency Contact: RoyalBlair hinson Mobile Relation: Son Healthcare Directive Healthcare Directive: [...] provide transport. he will be coming from [place]. Does the patient use Medicaid Transportation?: No [...] Current/Previous Services PCP Garfield Gray, , Pharmacy [facility] - [place], [place] - [address] [facility] [address] Durable Medical Equipment Durable Medical Equipment at [...] Home and community based services: No [facility] White: N/A Hospice Hospice: No Outpatient Therapy PT: yes, pt had cardiac rehab post CABG at [facility] outpt. OT: No TIP BANDER: No Senior Care Facility/Custodial SNF: No NH: No Inpatient Rehab IPR: No Long-Term Acute Care Hospital LTACH: No Acute Hospital Stay Acute Hospital Stay: In the past Was patient's stay within the last 30 days?: No Gavi Nobles Integrated Nurse Bag Machine Operator Bsn Rn-[facility] [phone] Pager [phone] * Laurita Gusman - Maggi Salamanca RN - 10/22/2020 10:19 [...] High Fall Risk Outcome: Goal Ongoing * Jerica Arechiga RN - 10/22/2020 7:26 PM CDT Problem: [...] Zaria Paulson Attending: Duyen Arroyo DO Service: [facility] [id number] Admission Date: 10/20/2020 LOS: 1 day A Code/Rapid Response Timeline Event Report has been created for this patient on 10/21/20 at 1224 MANAGER OF ADMINISTRATION called due to concerns from a HF [...] Zaria Paulson Attending: Vijaya Millard MD Service: [facility] [id number] Admission Date: 10/20/2020 LOS: 0 days A Code/Rapid Response Timeline Event Report has been created for this patient on 10/20/20 at 1708 Rapid called for tachy/ and c/o sob after transfusion,HR 120s to 130s afib, HR t reated with metoprolol, lasix given, pt with known GI bleed, blood transfusion r estarted, echo ordered Nevni Geoff, RN * Care Coordination-Inpatient - Vijaya Millard MD - 10/20/2020 4:38 PM CDT Assigned to [facility] as moving to [facility] 7. Vijaya [...] Problems ed? [facility] On track (10/23/2020 Yes [place], 1:06 PM CDT) CHRYSTAL Singh documented as [...] (L) >60 mL/min [facility] Comment: [place] The eGFR is not validated f or use in drug dosing adjustments. Continue to use estimated creatinine clearance per dosing reference text. Please contact the Clinical Pharmacist for questions. eGFR >60 >60 mL/min [facility] [place] Comment: The eGFR is not validated for use in drug dosing adjustments. Continue to use estimated creatinine clearance per dosing reference text. Please contact the Clinical Pharmacist for questions. Specimen Blood Performing Organization Address City/State/ZIP Code P shane Number [facility] [address] [place] [address] * PTT (APTT) (10/26/2020 6:16 AM CDT) APTT 34.5 24.0 - 36.5 SEC MAIN LAB Specimen Performing Organization Address City/[facility]/ZIP Code P shane Number [facility] [address] [place] [address] * PROTIME INR (PT) (10/26/2020 6:16 AM CDT) INR 1.4 (H) 0.8 - 1.2 [facility] Specimen Blood Performing Organization Address City/[facility] P shane Number [facility] [address] [place] [address] * MAGNESIUM (10/26/2020 6:16 AM CDT) Magnesium 1.9 1.6 - 2.6 mg/dL [facility] Specimen Blood Performing Organization Address City/[facility] P shane Number [facility] [address] [place] [address] * CBC (10/26/2020 6:16 AM CDT) White [...] MAIN LAB Specimen Blood Performing Organization Address [facility] P shane Number [facility] [address] [place] [address] * COMPREHENSIVE METABOLIC PANEL (10/26/2020 6:16 AM [...] (L) >60 mL/min [facility] Comment: [place] The eGFR is not validated f or use in drug dosing adjustments. Continue to use estimated creatinine clearance per dosing reference text. Please contact the Clinical Pharmacist for questions. eGFR 59 (L) >60 mL/min [facility] [place] Comment: The eGFR is not validated for use in drug dosing adjustments. Continue to use estimated creatinine clearance per dosing reference text. Please contact the Clinical Pharmacist for questions. Specimen Blood Performing Organization Address City/[facility]/ZIP Code P shane Number MAIN LAB [address] [place], [place] [id number] * PTT (APTT) (10/26/2020 12:27 AM CDT) APTT 75.3 (H) 24.0 - 36.5 SEC MAIN LAB Specimen Blood Performing Organization Address City/[facility]/ZIP Code P shane Number [facility] [address] [place] [address] * PTT (APTT) (10/25/2020 6:00 PM CDT) APTT 30.1 24.0 - 36.5 SEC MAIN LAB Specimen Blood Performing Organization Address City/[facility]/ZIP Code P shane Number MAIN LAB [address] [place] [address] * MAGNESIUM (10/25/2020 6:05 AM CDT) Magnesium 1.9 1.6 - 2.6 mg/dL [facility] Specimen Performing Organization Address City/[facility]/ZIP Code P shane Number MAIN LAB [address] [place] [address] * CBC (10/25/2020 6:05 AM CDT) White [...] P shane Number [facility] [address] [place] [address] * ALPHA FETO PROTEIN (AFP) (10/25/2020 6:05 AM CDT) Alpha Feto 1.4 0.0 - 15.0 NG/ML [facility] Protein Specimen Blood Performing Organization Address City/[facility]/ZIP Code P shane Number [facility] [address] [place] [address] * COMPREHENSIVE METABOLIC PANEL (10/25/2020 6:05 AM [...] >60 >60 mL/min [facility] Comment: [place] The eGFR is not validated f or use in drug dosing adjustments. Continue to use estimated creatinine clearance per dosing reference text. Please contact the Clinical Pharmacist for questions. eGFR >60 >60 mL/min [facility] [place] Comment: The eGFR is not validated for use in drug dosing adjustments. Continue to use estimated creatinine clearance per dosing reference text. Please contact the Clinical Pharmacist for questions. Specimen Blood Performing Organization Address City/[facility]/ZIP Code P shane Number [facility] [address] [place] [address] * PROTIME INR (PT) (10/25/2020 6:05 AM CDT) Pathologist [facility] INR 1.4 (H) 0.8 - 1.2 [facility] Specimen Blood Performing Organization Address City/[facility] P shane Number [facility] [address] [place] [address] * IRON + BINDING CAPACITY + %SAT+ FERRITIN (10/24/2020 5:47 AM CDT) Pathologist [facility] Iron 32 (L) 50 - 160 MCG/DL [facility] Iron 262 (L) 270 - 380 MCG/DL [facility] Binding-TIBC % Saturation 12 (L) 28 - 42 % [facility] Ferritin 130 10 - 200 NG/ML [facility] Specimen Performing Organization Address City/[facility] P shane Number [facility] [address] [place] [address] * CBC (10/24/2020 5:47 AM CDT) White [...] P shane Number [facility] [address] [place] [address] * COMPREHENSIVE METABOLIC PANEL (10/24/2020 5:47 AM [...] (L) >60 mL/min [facility] Comment: [place] The eGFR is not validated f or use in drug dosing adjustments. Continue to use estimated creatinine clearance per dosing reference text. Please contact the Clinical Pharmacist for questions. eGFR 44 (L) >60 mL/min [facility] [place] Comment: The eGFR is not validated for use in drug dosing adjustments. Continue to use estimated creatinine clearance per dosing reference text. Please contact the Clinical Pharmacist for questions. Specimen Blood Performing Organization Address City/State/ZIP Code P shane Number [facility] [address] [place] [address] * PROTIME INR (PT) (10/24/2020 5:47 AM CDT) INR 1.8 (H) 0.8 - 1.2 [facility] Specimen Blood Performing Organization Address City/State/ZIP Code P shane Number [facility] [address] [place] [address] * COMPREHENSIVE METABOLIC PANEL (10/23/2020 12:35 PM [...] (L) >60 mL/min [facility] Comment: [place] The eGFR is not validated f or use in drug dosing adjustments. Continue to use estimated creatinine clearance per dosing reference text. Please contact the Clinical Pharmacist for questions. eGFR 35 (L) >60 mL/min [facility] [place] Comment: The eGFR is not validated for use in drug dosing adjustments. Continue to use estimated creatinine clearance per dosing reference text. Please contact the Clinical Pharmacist for questions. Specimen Blood Performing Organization Address City/State/ZIP Code P shane Number [facility] [address] [place] [address] * CBC (10/23/2020 12:35 PM CDT) White [...] MAIN LAB Specimen Blood Performing Organization Address City/[facility]/ZIP Code P shane Number [facility] [address] [place] [address] * PROTIME INR (PT) (10/23/2020 8:37 AM CDT) INR 2.8 (H) 0.8 - 1.2 [facility] Specimen Blood Performing Organization Address City/[facility] Code P shane Number [facility] [address] [place] [address] * HEMOGLOBIN & HEMATOCRIT (10/22/2020 11:17 PM CDT) Hemoglobin 7.9 (L) 12.0 - 15.0 GM/DL [facility] Hematocrit 22.8 (L) 36 - 45 % [facility] Specimen Blood Performing Organization Address [facility] Code P shane Number [facility] [address] [place] [address] * TRANSFUSE RBC'S (10/22/2020 9:53 PM CDT) Specimen Blood * TRANSFUSE RBC'S (10/22/2020 9:53 PM CDT) Specimen Blood * LACTIC ACID(LACTATE) (10/22/2020 8:59 PM CDT) Lactic Acid 1.9 0.5 - 2.0 MMOL/L [facility] Specimen Blood Performing Organization Address City/[facility]/ZIP Code P shane Number [facility] [address] [place] [address] * CBC (10/22/2020 8:59 PM CDT) White [...] MAIN LAB Specimen Blood Performing Organization Address City/[facility]/ZIP Code P shane Number [facility] [address] [place] [id number] * CBC (10/22/2020 12:34 PM CDT) White [...] MAIN LAB Specimen Blood Performing Organization Address City/[facility] Code P shane Number [facility] [address] [place] [address] * MAGNESIUM (10/22/2020 3:12 AM CDT) Magnesium 2.0 1.6 - 2.6 mg/dL [facility] Specimen Performing Organization Address City/[facility]/ZIP Code P shane Number [facility] [address] [place] [address] * CBC (10/22/2020 3:12 AM CDT) White [...] P shane Number [facility] [address] [place] [address] * PROTIME INR (PT) (10/22/2020 3:12 AM CDT) INR 3.1 (H) 0.8 - 1.2 [facility] Specimen Blood Performing Organization Address City/[facility]/ZIP Code P shane Number [facility] [address] [place] [address] * COMPREHENSIVE METABOLIC PANEL (10/22/2020 3:12 AM [...] (L) >60 mL/min [facility] Comment: [place] The eGFR is not validated f or use in drug dosing adjustments. Continue to use estimated creatinine clearance per dosing reference text. Please contact the Clinical Pharmacist for questions. eGFR 33 (L) >60 mL/min [facility] [place] Comment: The eGFR is not validated for use in drug dosing adjustments. Continue to use estimated creatinine clearance per dosing reference text. Please contact the Clinical Pharmacist for questions. Specimen Blood Performing Organization Address City/State/ZIP Code P shane Number MAIN LAB [address] [place] [address] * EGD REPORT (10/21/2020 9:59 PM CDT) Provation Patient Name: Khurram SPARKS OTHER Report Procedure Date: 10/21/2020 9:59 RESULT S PM CSN: [id number] Date of : 1960 Gender: Female Attending Physician: Cosmo Gomez MD Procedure: Upper GI endoscopy Indications: Hematochezia Providers: Cosmo Gomez MD (Doctor), Jesus Senior (Fellow), Sarah Sapp (Nurse), Omid Brooke Oil Tank Car Cleaner (Oil Tank Car Cleaner) Referring Physician: Cosmo Gomez MD Medications: Monitored [...] 6 seconds Procedure Code(s): --- Professional --- 70203, Esophagogastroduodenoscopy, flexible, transoral; diagnostic, including collection of specimen(s) by brushing or washing, when performed (separate procedure) Diagnosis Code(s): --- Professional --- K22.8, Other specified diseases of esophagus K92.1, Melena (includes Hematochezia) CPT copyright 2020 [place] [employer]. All rights reserved. The codes documented in this report are preliminary and upon medical records coder review may be revised to meet [...] Procedure Date: 10/21/2020 9:34 RESULT S PM [facility]: [id number] Date of : 1960 Gender: Female Attending Physician: Cosmo Gomez MD Procedure: Flexible Sigmoidoscopy Indications: Hematochezia Providers: Cosmo Gomez MD (Doctor), Sarah Sapp (Nurse), Omid Brooke, Oil Tank Car Cleaner (Oil Tank Car Cleaner), Jesus Senior (Fellow) Referring Physician: Cosmo Gomez [...] 40 seconds Procedure Code(s): --- Professional --- 36217, Sigmoidoscopy, flexible; with control of bleeding, any method Diagnosis Code(s): --- Professional --- K55.21, Angiodysplasia of colon with hemorrhage K92.1, Melena (includes Hematochezia) CPT copyright 2020 [place] [employer]. All rights reserved. The codes documented in this report are preliminary and upon medical records coder review may be revised to meet [...] P shane Number [facility] [address] [place] [address] * CBC (10/21/2020 6:46 PM CDT) White [...] MAIN LAB Specimen Blood Performing Organization Address [facility]/ZIP Code P shane Number MAIN LAB [address] [place] [address] * TRANSFUSE RBC'S (10/21/2020 1:35 PM CDT) Specimen Blood * TRANSFUSE RBC'S (10/21/2020 1:35 PM CDT) Specimen Blood * PREPARE PLASMA (FFP) (10/21/2020 12:38 PM CDT) Units Ordered 1 MAIN LAB Unit Number [id number] MAIN LAB Blood Component THAWED PLASMA [facility] Type Unit Division 00 MAIN LAB Status OF Unit TRANSFUSED MAIN LAB ISSUE DATE TIME [id number] MAIN LAB PRODUCT CODE [id number] MAIN LAB BLOOD TYPE O POS MAIN LAB CODING STATUS 5100 [facility] BLOOD [id number] [facility] EXPIRATION DATE Transfusion OK TO TRANSFUSE MAIN LAB Status Specimen Other (Specify) Performing Organization Address [facility] P shane Number MAIN LAB [address] [place] [phone] * 2D + DOPPLER ECHO (10/21/2020 9:56 [...] = LAB AV index 0.50 OTHER OUTSIDE ([facility]) LAB LVOT area 2.96 cm2 OTHER OUTSIDE [...] 18.07 OTHER OUTSIDE ratio LAB Cardiology Siemens [id number] OTHER OUTSIDE Ultrasound LAB Machine Specimen Narrative [...] significant changes have occurred. Performing Organization Address City/[facility] Code P shane Number OTHER OUTSIDE LAB * TROPONIN-I (10/21/2020 9:50 AM CDT) [facility] Troponin-I 0.04 0.0 - 0.05 NG/ML MAIN LAB Specimen Blood Performing Organization Address [facility] P shane Number [facility] [address] [place] [address] * TROPONIN-I (10/21/2020 5:15 AM CDT) [facility] Troponin-I 0.04 0.0 - 0.05 NG/ML MAIN LAB Specimen Performing Organization Address [facility] P shane Number [facility] [address] [place] [address] * CBC (10/21/2020 5:15 AM CDT) [facility] White Blood 10.3 4.5 - 11.0 K/UL MAIN LAB Cells RBC 2.10 (L) 4.0 [...] P shane Number [facility] [address] [place] [address] * PROTIME INR (PT) (10/21/2020 5:15 AM CDT) INR 3.7 (H) 0.8 - 1.2 [facility] Specimen Blood Performing Organization Address City/[facility]/ZIP Code P shane Number [facility] [address] [place] [address] * COMPREHENSIVE METABOLIC PANEL (10/21/2020 5:15 AM [...] (L) >60 mL/min [facility] Comment: [place] The eGFR is not validated f or use in drug dosing adjustments. Continue to use estimated creatinine clearance per dosing reference text. Please contact the Clinical Pharmacist for questions. eGFR 37 (L) >60 mL/min [facility] [place] Comment: The eGFR is not validated for use in drug dosing adjustments. Continue to use estimated creatinine clearance per dosing reference text. Please contact the Clinical Pharmacist for questions. Specimen Blood Performing Organization Address City/[facility]/ZIP Code P shane Number [facility] [address] [place] [address] * LACTIC ACID(LACTATE) (10/21/2020 5:10 AM CDT) Lactic Acid 1.9 0.5 - 2.0 MMOL/L [facility] Specimen Blood Performing Organization Address City/[facility] P shane Number [facility] [address] [place] [phone] * TRANSFUSE RBC'S (10/20/2020 10:16 PM CDT) [...] MAIN LAB Specimen Blood Performing Organization Address City/[facility] Code P shane Number [facility] [address] [place] [address] * PHOSPHORUS (10/20/2020 5:12 PM CDT) Phosphorus 3.3 2.0 - 4.5 MG/DL [facility] Specimen Blood Performing Organization Address City/[facility]/ZIP Code P shane Number [facility] [address] [place] [address] * MAGNESIUM (10/20/2020 5:12 PM CDT) Magnesium 1.8 1.6 - 2.6 mg/dL [facility] Specimen Blood Performing Organization Address City/[facility]/ZIP Code P shane Number [facility] [address] [place] [address] * TROPONIN-I (10/20/2020 5:12 PM CDT) Troponin-I 0.04 0.0 - 0.05 NG/ML [facility] Specimen Blood Performing Organization Address City/[facility]/ZIP Code P shane Number [facility] [address] [place] [address] * COMPREHENSIVE METABOLIC PANEL (10/20/2020 5:12 PM [...] (L) >60 mL/min [facility] Comment: [place] The eGFR is not validated f or use in drug dosing adjustments. Continue to use estimated creatinine clearance per dosing reference text. Please contact the Clinical Pharmacist for questions. eGFR 49 (L) >60 mL/min [facility] [place] Comment: The eGFR is not validated for use in drug dosing adjustments. Continue to use estimated creatinine clearance per dosing reference text. Please contact the Clinical Pharmacist for questions. Specimen Blood Performing Organization Address City/[facility]/ZIP Code P shane Number [facility] [address] [place] [address] * PTT (APTT) (10/20/2020 5:12 PM CDT) APTT 34.9 24.0 - 36.5 SEC MAIN LAB Specimen Blood Performing Organization Address City/[facility] Code P shane Number [facility] [address] [place] [address] * PROTIME INR (PT) (10/20/2020 5:12 PM CDT) INR 3.1 (H) 0.8 - 1.2 MAIN LAB Specimen Blood Performing Organization Address City/[facility]/ZIP Code P shane Number MAIN LAB [address] [place] [id number] * CBC (10/20/2020 5:12 PM CDT) Pathologist [facility] White Blood 11.0 4.5 - 11.0 K/UL [facility] Cells RBC 1.97 (L) 4.0 - 5.0 M/UL [facility] Hemoglobin 6.1 (L) 12.0 - 15.0 GM/DL [facility] Hematocrit 17.6 (L) 36 - 45 % [facility] MCV 89.3 80 - 100 FL MAIN LAB MCH 31.1 26 - 34 PG MAIN LAB MCHC 34.9 32.0 - 36.0 G/DL MAIN LAB RDW 20.0 (H) 11 - 15 % [facility] Platelet Count 197 150 - 400 K/UL [facility] MPV 7.5 7 - 11 FL [facility] Specimen Blood Performing Organization Address [facility] Code P shane Number MAIN LAB [address] [place] [address] * POC GLUCOSE (10/20/2020 5:11 PM CDT) Pathologist [facility] Glucose, POC 152 (H) 70 - 100 MG/DL [facility] Specimen Performing Organization Address City/[facility] [facility] Code P shane Number MAIN LAB [address] [place] [address] * TRANSFUSE RBC'S (10/20/2020 4:37 PM CDT) Specimen Blood * BASIC METABOLIC PANEL (10/20/2020 3:29 PM CDT) Sodium 132 (L) 137 - 147 MMOL/L [facility] Potassium 3.6 3.5 - 5.1 MMOL/L [facility] Chloride 99 98 - 110 MMOL/L [facility] CO2 24 21 - 30 MMOL/L [facility] Anion Gap 9 3 - 12 [facility] Glucose 118 (H) 70 - 100 MG/DL [facility] Blood Urea 40 (H) 7 - 25 MG/DL [facility] Nitrogen Creatinine 1.28 (H) 0.4 - 1.00 MG/DL [facility] Calcium 7.7 (L) 8.5 - 10.6 MG/DL [facility] eGFR Non 43 (L) >60 mL/min [facility] Comment: [place] The eGFR is not validated f or use in drug dosing adjustments. Continue to use estimated creatinine clearance per dosing reference text. Please contact the Clinical Pharmacist for questions. eGFR 52 (L) >60 mL/min [facility] [place] Comment: The eGFR is not validated for use in drug dosing adjustments. Continue to use estimated creatinine clearance per dosing reference text. Please contact the Clinical Pharmacist for questions. Specimen Blood Performing Organization Address City/State/ZIP Code P shane Number [facility] [address] [place] [address] * COVID-19 (SARS-COV-2) PCR (10/20/2020 12:53 PM CDT) COVID-19 FLOCKED SWAB [facility] (SARS-CoV-2) NASOPHARYNGEAL PCR Source COVID-19 NOT DETECTED DN-NOT DETECTED [facility] (SARS-CoV-2) Comment: PCR This assay is [...] performance characteristics have been verified by the [facility] clinical laboratory. Fact sheet for providers: https://www.fda.gov/media/3761 13/download Fact sheet for patients: https://www.fda.gov/media/1363 12/download Specimen Flocked Swab - Nasopharyngeal Performing Organization Address City/State/ZIP Code P shane Number [facility] [address] [place] [address] * BLOOD TYPE CONFIRMATION - ORDER ONLY IF REQUESTED BY LAB (10/20/2020 11:54 AM CDT) ABO/RH(D) O POS [facility] Specimen Bowel Contents Performing Organization Address City/State/ZIP Code P shane Number [facility] [address] [place] [id number] * TYPE & CROSSMATCH (10/20/2020 11:33 AM CDT) Units Ordered 7 [facility] Crossmatch 10/23/2020,2359 [facility] Expires Record Check 2ND TYPE REQUIRED [facility] ABO/RH(D) O POS [facility] Antibody Screen NEG [facility] Electronic YES [facility] Crossmatch Unit Number [id number] [facility] Blood Component RBC,ADSOL,LEUKO REDUCED,1ST [facility] AB Type CONT. Unit Division 00 [facility] Status OF Unit TRANSFUSED [facility] ISSUE DATE TIME [facility] PRODUCT CODE [id number] [facility] BLOOD TYPE O POS [facility] CODING STATUS 5100 [facility] BLOOD [id number] [facility] EXPIRATION DATE Transfusion OK TO TRANSFUSE [facility] Status Crossmatch COMPATIBLE,ELECTRONIC [facility] Result Unit Number [id number] [facility] Blood Component RBC,ADSOL,LEUKO REDUCED [facility] Type Unit Division 00 [facility] Status OF Unit TRANSFUSED [facility] ISSUE DATE TIME [id number] [facility] PRODUCT CODE [id number] [facility] BLOOD TYPE O POS [facility] CODING STATUS 5100 [facility] BLOOD [id number] [facility] EXPIRATION DATE Transfusion OK TO TRANSFUSE [facility] Status Crossmatch COMPATIBLE,ELECTRONIC [facility] Result Unit Number [id number] [facility] Blood Component RBC,ADSOL,LEUKO REDUCED [facility] Type Unit Division 00 [facility] Status OF Unit TRANSFUSED [facility] ISSUE DATE TIME [id number] [facility] PRODUCT CODE [id number] [facility] BLOOD TYPE O POS [facility] CODING STATUS 5100 [facility] BLOOD [id number] [facility] EXPIRATION DATE Transfusion OK TO TRANSFUSE [facility] Status Crossmatch COMPATIBLE,ELECTRONIC [facility] Result Unit Number [id number] [facility] Blood Component RBC,ADSOL,LEUKO REDUCED,2ND [facility] AB Type CONT. Unit Division 00 [facility] Status OF Unit TRANSFUSED [facility] ISSUE DATE TIME [facility] PRODUCT CODE [id number] [facility] BLOOD TYPE O POS [facility] CODING STATUS 5100 [facility] BLOOD [id number] [facility] EXPIRATION DATE Transfusion OK TO TRANSFUSE [facility] Status Crossmatch COMPATIBLE,ELECTRONIC [facility] Result Unit Number [id number] [facility] Blood Component RBC,ADSOL,LEUKO REDUCED [facility] Type Unit Division 00 [facility] Status OF Unit TRANSFUSED [facility] ISSUE DATE TIME [facility] PRODUCT CODE [id number] [facility] BLOOD TYPE O POS [facility] CODING STATUS 5100 [facility] BLOOD [id number] [facility] EXPIRATION DATE Transfusion OK TO TRANSFUSE [facility] Status Crossmatch COMPATIBLE,ELECTRONIC [facility] Result Unit Number [id number] [facility] Blood Component RBC,ADSOL,LEUKO REDUCED [facility] Type Unit Division 00 [facility] Status OF Unit TRANSFUSED [facility] ISSUE DATE TIME [facility] PRODUCT CODE [id number] [facility] BLOOD TYPE O POS [facility] CODING STATUS 5100 [facility] BLOOD [id number] [facility] EXPIRATION DATE Transfusion OK TO TRANSFUSE [facility] Status Crossmatch COMPATIBLE,ELECTRONIC [facility] Result Specimen Lung Performing Organization Address City/[facility]/ZIP Code P shane Number [facility] [address] [place] [address] * POC PT/INR (10/20/2020 9:13 AM CDT) INR POC 2.8 (H) 0.8 - 1.2 [facility] Specimen Performing Organization Address City/[facility]/ZIP Code P shane Number [facility] [address] [place] [address] * MAGNESIUM (10/20/2020 9:07 AM CDT) Magnesium 1.8 1.6 - 2.6 mg/dL [facility] Specimen Performing Organization Address City/[facility]/ZIP Code P shane Number [facility] [address] [place] [address] * PROTIME INR (PT) (10/20/2020 9:07 AM CDT) INR 3.2 (H) 0.8 - 1.2 [facility] Specimen Performing Organization Address City/[facility]/ZIP Code P shane Number [facility] [address] [place] [id number] * BLUE TOP TUBE (10/20/2020 9:07 AM CDT) Specimen Performing Organization Address City/[facility]/ZIP Code P shane Number [facility] RESULTS [...] (L) >60 mL/min [facility] Comment: [place] The eGFR is not validated f or use in drug dosing adjustments. Continue to use estimated creatinine clearance per dosing reference text. Please contact the Clinical Pharmacist for questions. eGFR 50 (L) >60 mL/min [facility] [place] Comment: The eGFR is not validated for use in drug dosing adjustments. Continue to use estimated creatinine clearance per dosing reference text. Please contact the Clinical Pharmacist for questions. Specimen Blood Performing Organization Address City/[facility]/ZIP Code P shane Number [facility] [address] [place] [address] * CBC (10/20/2020 9:07 AM CDT) White [...] Code P shane Number MAIN LAB [address] [place] [address] * TELEMETRY STRIPS-SCAN (10/20/2020 12:00 AM CDT) [...] PRN, Starting on Fri10/22/20 at 2044, Until Toya 10/26/20 at 1248, Insomnia 3 mg Given 10/23/2020 [...] PRN, Starting on Fri10/20/20 at 1626, Until Fri10/26/20 at 1248, Nausea/Vomiting Injectable, PROTECT FRO M [...] manage PER PHARMACY, 999 doses, Starting on 21 at 0905, Until Toya 10/26/20 at 1248, [...] Take 37.5 mg Removed from by mouth [employer]FT [employer]ER Med List every 48 hours. 08/01/2020 10/26/2020 [...] Sa rashid dose (after last modification) on Frigreat fallsCHRYSTAL) 10/24/20 at 1745, Until Discontinued, INSTR: IV [...] Each Nostril, TWICE DAILY, CHRYSTAL [place] - [place] son: First dose on Fri10/20/20 at 1315, [...] ALERT Medication. 184 (Given - Provider: Shalonda Santizo, CHRYSTAL ) heparin (porcine) injection 4,210 Units (COMPLETED) [...] New Bag - Provider: Shalonda Santizo RN) 811 (Given - New Bag - Provider: Shalonda [...] Nydia RN) not crush or chew tablet. 927 (Given - Provider: [place] Sukhdev, RN )1413 (Given - Provider: Shalonda Santizo [...] CHRYSTAL Adams) 2100 (Given - Provider: Jojo Mcelroy N) warfarin (COUMADIN) tablet 5 mg 2020 (Given [...] if chest pain persists after 3 doses. 956 (Given - Provider: Shalonda Santizo, RN ) ondansetron (ZOFRAN) injection 4 mg [...]
--- OUTSIDE RECORDS SUMMARY | 2020-12-13 12:06 | XMS REPORT | Encounter Summary ---
Author Author [facility] Organization [facility] Address Unknown Phone Unavailable Care Team Providers Care Band Manager Name Role Phone Self, Garfield OLVERA PCP [place] Hopson MD 3 Encounter Details Care Team Description Date Type Department Kathi Chen RN 10/19/2020 Prep for Case Cardiology: [facility] 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 [facility] On track (10/23/2020 Yes [place], 1:06 [...]
--- OUTSIDE RECORDS SUMMARY | 2020-12-13 12:06 | XMS REPORT | Encounter Summary ---
Author Author [facility] Organization [facility] Address Unknown Phone Unavailable Care Team Providers Care Lumber Salvager Name Role Phone Garfield Gray MD PCP Riley Hopson MD 3 Reason for Visit * Auth/Cert Referred By Contact Referred To Contact Status Reason Specialty Diagnoses / Procedures Diagnoses Chronic heart failure with preserved ejection fraction (HCC) Procedures [place] UNLISTED CARDIOVASCULAR SERVICE/PROCEDURE CATHETERIZATION RIGHT HEART WITH INSERTION PULMONARY ARTERY SENSOR Encounter Details Care Team Description Date Type Department Cosmo Gomez MD [address] [place] [address] ESOPHAGOGASTRODUODENOSCOPY WITH SPECIMEN COLLECTION BY BRUSHING/ WASHING 10/21/2020 Surgery Endoscopy: [facility] [address] [facility] [address] [place] [address] Surgery Details Trauma Case? Date/Time Status Location OR Service Patient Class Case Class Case Type 10/21/20 Posted [facility] ENDO GI VIRTUAL Anesthesio Inpatient Urge nt [...] at Date Recorded Female 06/01/2020 1:44 PM DIAMOND SELECTOR Date Recorded COVID-19 Exposure Response 10/20/2020 8:33 [...] Summary Completed By: Duyen Arroyo DO Service: [facility] 6154 Reason for hospitalization: Chronic heart [...] Lovenox bridge for 7 days and to [facility] k INR on 10/27. Patient is [...] Hospital Follow Up with [facility] Cardiology: [facility] (CVM Exam) [address] [facility] [address], [address] [facility] [address] Nov 15, 2020 2:15 PM (Arrive by 2:00 PM) Procedure with [facility] Laboratory: [facility] (--) [address] [place] [phone] Nov 15, 2020 2:30 PM Return Patient with [facility] Cardiology: [facility] (CVM Exam) [address] [place] [phone] Dec 19, 2020 12:00 PM Return Patient with Allison Marti MD Transplant: [facility] ([facility]) [address] [facility] [address], [address] [facility] [address] Consults, Procedures, Diagnostics, Micro, Pathology Consults: Cardiology and Hepatology Surgical Procedures & Dates: None Significant Diagnostic Studies, Micro and Procedures: noted in brief hospital co urse Significant Pathology: noted in brief hospital course Nutrition: Dietitian Documentation Muscle Wasting: Yes Moderate Clavicle, Yarsanism Edema: No Discharge Disposition, Condition Patient Disposition: Home Condition at Discharge: Stable Code Status Code Status History Date Active Date Inactive Code Status Order ID 10/20/2020 1221 10/26/2020 1253 Full Code [id number] Vijaya Millard MD Inpatient 10/20/2020 0846 10/20/2020 1221 Full Code [id number] Crissy Gould PA-C I npatient Only showing the last 2 code statuses. Patient Instructions PROTIME INR (PT) Standing Status: Future Standing Exp. Date: 10/26/21 Which provider would you like to CC? SHRUTI NEWBERRY [[id number]] Release to patient Immediate BASIC METABOLIC PANEL Standing Status: Future Standing Exp. Date: 10/26/21 Which provider would you like to CC? SHRUTI NEWBERRY [[id number]] Release to patient Immediate Cardiac Diet Limiting [...] To register for smoking cessation program call [phone] or visit www.smokefree.gov Diabetes Risk Goal: Non-diabetic: [...] you can call a conchita carmona at [phone] Physical Activity Risk Goal: Patients should have approval by a physician prior to beginning an exercis e program. Plan: Try to get at least 30 minutes of moderate physical activity five days a [place] or 20 minutes of vigorous physical activity [...] HOURS (8:00 AM - 4:30 PM): Call [phone] and asked to be transferred to your discharge attending physic mg. - AFTER BUSINESS HOURS (4:30 PM - 8:00 AM, on weekends, or holidays): Call [phone] and ask the cotton picking machine operator to page the on-call doctor for the discha rge attending physician. Discharging attending physician: NADEGE MAHARAJ [[id number]] Procedure Specific Activity *Resume your normal activity in 2 days. Incision Care *Call if there is an increase in pain, swelling, or redness. *DO NOT soak incision in water. *NO tub baths, hot tubs, or swimming. *You may shower after discharge. Testing Not Required for Covid-19 Questions About Your Stay For questions or concerns regarding your hospital stay, call [phone]. Discharging attending physician: DUYEN ARROYO [[id number]] Appointment Request: Cardiology Heart Failure Please arrange [...] Ordering Provider's or Responsible Teams's Pager #? [phone] Additional Orders: Case Management, Supplies, Home Health Home Health/DME None Signed: Duyen Arroyo DO 10/26/2020 cc: Primary Care Physician: Garfield Gray Referring physicians: Nithya Madison, APR* Additional provider(s): Did we miss something? If additional records are needed, please fax a request on office letterhead to [phone]. Please include the patient's name, date of b irth, fax number and type of information needed. Additional request can be made by email at [email or web address]. For general questions of information about electronic records sharing, call [phone]. documented in this encounter Medications at Time [...] follow up/discharge instructions, occurred wi th patient [id number]. 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 She underwent EGD on 10/21 which revealed [...] mg po bid starting 10/26/20 (ordere d). 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 INR 1.8 on 10/24/20. 5. Recommend Senior Sharepoint Architect consultation to discuss sodium restricted diet as [...] Shruti Newberry PA-C Department of Cardiovascular Medicine [facility] Available on Voalte/AMS/Pager [phone] Assessment: Acute on Chronic diastolic HFpEF, EF: [...] kg (132 lb 6.4 oz) Recommendations: GDMT ORNAMENTAL RAIL INSTALLER Changes BB Lopressor 12.5 mg twice daily [...] Dosing 10/22-10/24 IV Bumex 2 mg BID. 8/4 IV bumex 2 mg X 1 10/26 [...] 20 meq po TID. 10/24: K 4.1 8/4 K 4 Subjective: Felling much improved today. [...] 06/06/2020 Performed by Bao Hernández MD at [facility] ENDO COLONOSCOPY DIAGNOSTIC WITH SPECIMEN COLLECTION BY BRUSHING/ WASHING - FLEXI BLE N/A 06/06/2020 Performed by Bao Hernández MD at [facility] ENDO ANGIOGRAPHY CORONARY ARTERY WITH RIGHT AND LEFT HEART CATHETERIZATION N/A Performed by Higinio Clarke MD at [facility] FABRICATION DEPARTMENT SUPERVISOR POSSIBLE PERCUTANEOUS CORONARY STENT PLACEMENT WITH ANGIOPLASTY N/A Performed by Higinio Clarke MD at [facility] FABRICATION DEPARTMENT SUPERVISOR ESOPHAGOGASTRODUODENOSCOPY WITH SPECIMEN COLLECTION BY BRUSHING/ WASHING N/A 10/21/2020 Performed by Cosmo Gomez MD at [facility] ENDO SIGMOIDOSCOPY WITH CONTROL OF BLEEDING - FLEXIBLE N/A 10/21/2020 Performed by Cosmo Gomez MD at [facility] ENDO SIGMOIDOSCOPY WITH DIRECTED SUBMUCOSAL INJECTION - FLEXIBLE 10/21/2020 Performed by Cosmo Gomez MD at [facility] ENDO Family History Problem Relation Age [...] tablet 3 mg, 3 mg, Oral, B ID(12-08) cefTRIAXone (ROCEPHIN) IVP 1 g, 1 g, [...] 500 mg by mouth daily. 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 Ok Dominguez GI Fellow 8163 PMH: Medical History: Diagnosis Date Cancer (HCC) [...] 06/06/2020 Performed by Bao Hernández MD at [facility] ENDO COLONOSCOPY DIAGNOSTIC WITH SPECIMEN COLLECTION BY BRUSHING/ WASHING - FLEXI BLE N/A 06/06/2020 Performed by Bao Hernández MD at [facility] ENDO ANGIOGRAPHY CORONARY ARTERY WITH RIGHT AND LEFT HEART CATHETERIZATION N/A Performed by Higinio Clarke MD at [facility] FABRICATION DEPARTMENT SUPERVISOR POSSIBLE PERCUTANEOUS CORONARY STENT PLACEMENT WITH ANGIOPLASTY N/A Performed by Higinio Clarke MD at [facility] FABRICATION DEPARTMENT SUPERVISOR ESOPHAGOGASTRODUODENOSCOPY WITH SPECIMEN COLLECTION BY BRUSHING/ WASHING N/A 10/21/2020 Performed by Cosmo Gomez MD at [facility] ENDO SIGMOIDOSCOPY WITH CONTROL OF BLEEDING - FLEXIBLE N/A 10/21/2020 Performed by Cosmo Gomez MD at [facility] ENDO SIGMOIDOSCOPY WITH DIRECTED SUBMUCOSAL INJECTION - FLEXIBLE 10/21/2020 Performed by Cosmo Gomez MD at [facility] ENDO SH: Social History Socioeconomic History [...] 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 Consider future EGD to evaluate for Castellanos's. 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 Is improvi ng. 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 twice [...] 10/24/2020. INR 1.8 on 10/24/20. 6. Recommend Senior Sharepoint Architect consultation to discuss sodium restricted diet as [...] Shruti Newberry PA-C Department of Cardiovascular Medicine [facility] Available on Voalte/AMS/Pager [phone] Assessment: Acute on Chronic diastolic HFpEF, EF: [...] kg (131 lb 12.8 oz) Recommendations: GDMT ORNAMENTAL RAIL INSTALLER Changes BB Lopressor 12.5 mg twice daily [...] 06/06/2020 Performed by Bao Hernández MD at [facility] ENDO COLONOSCOPY DIAGNOSTIC WITH SPECIMEN COLLECTION BY BRUSHING/ WASHING - FLEXI BLE N/A 06/06/2020 Performed by Bao Hernández MD at [facility] ENDO ANGIOGRAPHY CORONARY ARTERY WITH RIGHT AND LEFT HEART CATHETERIZATION N/A Performed by Higinio Clarke MD at [facility] FABRICATION DEPARTMENT SUPERVISOR POSSIBLE PERCUTANEOUS CORONARY STENT PLACEMENT WITH ANGIOPLASTY N/A Performed by Higinio Clarke MD at [facility] FABRICATION DEPARTMENT SUPERVISOR ESOPHAGOGASTRODUODENOSCOPY WITH SPECIMEN COLLECTION BY BRUSHING/ WASHING N/A 10/21/2020 Performed by Cosmo Gomez MD at [facility] ENDO SIGMOIDOSCOPY WITH CONTROL OF BLEEDING - FLEXIBLE N/A 10/21/2020 Performed by Cosmo Gomez MD at [facility] ENDO SIGMOIDOSCOPY WITH DIRECTED SUBMUCOSAL INJECTION - FLEXIBLE 10/21/2020 Performed by Cosmo Gomez MD at [facility] ENDO Family History Problem Relation Age [...] 500 mg by mouth daily. Past [place] bumetanide (BUMEX) 2 mg tablet Take 2.5 [...] implantation, procedure deferred for now - Hold ORNAMENTAL RAIL INSTALLER aldactone, bumex, metolazone, metoprolol due to severe [...] doing well from heart failure standpoint - 8/1 discontinued amio infusion - 10/22 started on [...] (97.8 F) (10/24 1210) Pulse: 94 (10/24 121) Respirations: 18 PER MINUTE (10/24 1210) SpO2: [...] Plan: 1. 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 Discussed with provider an [...] implantation, procedure deferred for now - Hold ORNAMENTAL RAIL INSTALLER aldactone, bumex, metolazone, metoprolol due to severe [...] m oderate ascites and body wall edema -ORNAMENTAL RAIL INSTALLER Bumex 5 mg BID, Spironolactone 100 mg [...] seen/discussed with Dr. Ok Dominguez GI Fellow 9656 PMH: Medical History: Diagnosis Date Cancer (HCC) [...] 06/06/2020 Performed by Bao Hernández MD at [facility] ENDO COLONOSCOPY DIAGNOSTIC WITH SPECIMEN COLLECTION BY BRUSHING/ WASHING - FLEXI BLE N/A 06/06/2020 Performed by Bao Hernández MD at [facility] ENDO ANGIOGRAPHY CORONARY ARTERY WITH RIGHT AND LEFT HEART CATHETERIZATION N/A Performed by Higinio Clarke MD at [facility] FABRICATION DEPARTMENT SUPERVISOR POSSIBLE PERCUTANEOUS CORONARY STENT PLACEMENT WITH ANGIOPLASTY N/A Performed by Higinio Clarke MD at [facility] FABRICATION DEPARTMENT SUPERVISOR SH: Social History Socioeconomic History Marital status: [...] 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 Can consider future EGD to evaluate for Castellanos's. Will defer to primary hepatol ogist. She needs a colonoscopy in May 2021 given remaining polyp. We will check AFP with a.m. labs. She is due for HCC screening with cross-secti onal imaging next month. Management of heart failure per cardiology. Staff name: Rachael Euceda MD Date: 10/24/2020 * Claudette Walton APRN-TWYLA - 10/23/2020 7:57 AM CDT Heart Failure [...] be severely anemic and was admitted to [facility] service for acute GI bleed. She has medical history significant for cirrho sis, heart failure with preserved ejection fraction (60%), nonischemic cardiomyo yolanda ([facility] 05/2020 no CAD), mechanical aortic valve [...] received 5 units PRBCs and ffp. Consult biosecurity officer: albumin 2.9. Patient was seen and examined with Dr.Vidic Claudette Walton, , CELLOPHANE WRAPPING EXAMINER [id number] Assessment: Acute on Chronic diastolic HFpEF, EF: [...] vitals filed for this visit. Recommendations: GDMT ORNAMENTAL RAIL INSTALLER Changes BB Lopressor 12.5 mg twice daily [...] Yes Strict I/O. Standing scale daily weight. Senior Sharepoint Architect consultation to discuss sodium restricted diet recommended. [...] 06/06/2020 Performed by Bao Hernández MD at [facility] ENDO COLONOSCOPY DIAGNOSTIC WITH SPECIMEN COLLECTION BY BRUSHING/ WASHING - FLEXI BLE N/A 06/06/2020 Performed by Bao Hernández MD at [facility] ENDO ANGIOGRAPHY CORONARY ARTERY WITH RIGHT AND LEFT HEART CATHETERIZATION N/A Performed by Higinio Clarke MD at [facility] FABRICATION DEPARTMENT SUPERVISOR POSSIBLE PERCUTANEOUS CORONARY STENT PLACEMENT WITH ANGIOPLASTY N/A Performed by Higinio Clarke MD at [facility] FABRICATION DEPARTMENT SUPERVISOR Family History Problem Relation Age of Onset [...] implantation, procedure deferred for now - Hold 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 She has medical history significant for cirrho sis, heart failure with preserved ejection fraction (60%), nonischemic cardiomyo yolanda ([facility] 05/2020 no CAD), mechanical aortic valve [...] and examined with Dr.Vidic Claudette Walton, HF, CELLOPHANE WRAPPING EXAMINER [id number] Assessment: Acute on Chronic diastolic HFpEF, EF: [...] vitals filed for this visit. Recommendations: GDMT ORNAMENTAL RAIL INSTALLER Changes BB Lopressor 12.5 mg twice daily [...] Yes Strict I/O. Standing scale daily weight. Senior Sharepoint Architect consultation to discuss sodium restricted diet recommended. [...] 06/06/2020 Performed by Bao Hernández MD at [facility] ENDO COLONOSCOPY DIAGNOSTIC WITH SPECIMEN COLLECTION BY BRUSHING/ WASHING - FLEXI BLE N/A 06/06/2020 Performed by Bao Hernández MD at [facility] ENDO ANGIOGRAPHY CORONARY ARTERY WITH RIGHT AND LEFT HEART CATHETERIZATION N/A Performed by Higinio Clarke MD at [facility] FABRICATION DEPARTMENT SUPERVISOR POSSIBLE PERCUTANEOUS CORONARY STENT PLACEMENT WITH ANGIOPLASTY N/A Performed by Higinio Clarke MD at [facility] FABRICATION DEPARTMENT SUPERVISOR Family History Problem Relation Age of Onset [...] 0.6 mL under the skin every 12 [address] rs for 10 days. 20 each 0 [...] Intensity Pain Scale (Self Report): 5 (10/21/205) Wt Readings from Last 10 Encounters: 10/21/20 [...] the treatment plan as outlined by the CELLOPHANE WRAPPING EXAMINER The Complexity of medical decision making is [...] with my edits as outlined below. Staff certified family mediator: Shanell Ybarra DO * Cosmo Gomez MD [...] take patient down for scope at 2100. 7: Patient was complaining of chest pressure and MPL was voalted. Vital signs stable at this time and per Dr. Yip OK to give tylenol. 1999: Soap suds enema given to patient. RN gave report to [employer] CHRYSTAL Caldewll. 2015: prepost nurse at bedside. Patient cleaned [...] implantation, procedure deferred for now - Hold ORNAMENTAL RAIL INSTALLER aldactone, bumex, metolazone, metoprolol due to severe [...] problem Duyen Arroyo, DO Internal Medicine Med [facility] L Total time spent was greater than 35 minutes of which greater than 50% was spent [id number] with the patient in care coordination (reviewing the records, angella nieves, documentation, discussion with the nurse, case management manager and the social work , discussion with design consultant services) and bedside counseling. Subjective Zaria [...] 100 % (10/22 807) SpO2 Pulse: 100 (07/31 0633) BP: (83-115)/(48-84) Temp: [36.2 C (97.2 F)-37.1 [...] 10/20/2020 6:34 PM CDT Pt transported to [facility] on bedside monitor following Rapid response. Bedside [...] ell as medication management. 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 Crissy Gould PA-C Interventional Cardiology Pager [phone] * Adriana Leblanc RN - 10/19/2020 9:14 AM CDT Cardiovascular Labs Scheduling Checklist 1. Date of procedure:10/20 2. Arrival time: 0900 3. Patient instructed NPO after MN; clear liquids until: 0800 4. Instructed to check-in at the [facility] registration desk and bring phot o id, insurance cards and a current list of home medications. Pack an overnight bag in the event you are admitted overnight: Y 5. If you have a history of sleep apnea and use a C-Pap or Bi-Pap machine, pleas e bring it with you to the hospital: N 6. Have a fleet driver available upon discharge as you may not be cleared to drive for 24 or 48 hours post procedure. (exception is RHC/biopsy patient with internal j ugular approach not receiving sedation): Y 7. If the patient's language preference is other than Welsh, please indicated [place] language and need for japanese interpreter: N 8. Patient instructed to drink 64 [...] No need for bowel prep, will ad direct support specialist enema tomorrow - Transfuse to keep Hb>7, 2 units ordered for now. Patient consented - Last iron infusion in August 2020. EGD in May 2020 essentially normal. C-scope in May 2020 with angiectasia, treated with argon plasma. Chronic HFpEF without acute exacerbation Pulmonary HTN with chronic cor pulmonale - Originally presented for CardioMEMs implantation, procedure deferred for now - Hold ORNAMENTAL RAIL INSTALLER aldactone, bumex, metolazone, metoprolol due to severe [...] - Discussed with patient. - Admit to [facility] with hepatology and heart failure consults. Total 70 minutes spent in patient care performing history and physical, clarifyi ng medical history, reviewing prior visits with patient, checking facts, reviewi ng recommendations, placing orders for admission, 35 minutes were spent in [facility] and coordination of care. An additional 40 minutes were spent reviewing records in [facility] and prior hospital izations, clinic visit [...] was lightheaded when she got her up [facility] in the day. Blood pressure tends to [...] 06/06/2020 Performed by Bao Hernández MD at [facility] ENDO COLONOSCOPY DIAGNOSTIC WITH SPECIMEN COLLECTION BY BRUSHING/ WASHING - FLEXI BLE N/A 06/06/2020 Performed by Bao Hernández MD at [facility] ENDO ANGIOGRAPHY CORONARY ARTERY WITH RIGHT AND LEFT HEART CATHETERIZATION N/A Performed by Higinio Clarke MD at [facility] FABRICATION DEPARTMENT SUPERVISOR POSSIBLE PERCUTANEOUS CORONARY STENT PLACEMENT WITH ANGIOPLASTY N/A Performed by Higinio Clarke MD at [facility] FABRICATION DEPARTMENT SUPERVISOR Family History Problem Relation Age of Onset [...] Screen NEG Electronic Crossmatch YES Unit Number [id number] Blood Component Type RBC,ADSOL,LEUKO REDUCED,1ST CONT. Unit Division 00 Status OF Unit ISSUED ISSUE DATE TIME PRODUCT CODE [id number] BLOOD TYPE O POS CODING STATUS 5100 [...] below. Crissy Gould PA-C Interventional Cardiology Pager [phone] Progress Notes Nithya Madison (Berna) RYAN Rags[place]-CELLOPHANE WRAPPING EXAMINER (Nurse Practitioner) Nurse Luke Family binta 10/12/20 1130 Signed Date of Service: 10/12/2020 Zaria Paulson is a 60 y.o. female. She is followed by Dr. 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, hypothyroidism, depression, non-Hodgkins lymphoma [...] 06/06/2020 Performed by Bao Hernández MD at [facility] ENDO COLONOSCOPY DIAGNOSTIC WITH SPECIMEN COLLECTION BY BRUSHING/ WASHING - FLEXI BLE N/A 06/06/2020 Performed by Bao Hernández MD at [facility] ENDO ANGIOGRAPHY CORONARY ARTERY WITH RIGHT AND LEFT HEART CATHETERIZATION N/A Performed by Higinio Clarke MD at [facility] FABRICATION DEPARTMENT SUPERVISOR POSSIBLE PERCUTANEOUS CORONARY STENT PLACEMENT WITH ANGIOPLASTY N/A Performed by Higinio Clarke MD at [facility] FABRICATION DEPARTMENT SUPERVISOR Family History Problem Relation Age of Onset [...] luminal irregularities. The diagonal branch itself is oilvas nt. Problems Addressed Today Encounter Diagnoses Name [...] EF of 60%. -GDMT:Spironolactone 100 mg daily, [id number] twice daily, metolazone 2.5 mg twice weekly [...] concerns prior to the next appointment. Total [id number]. Estimated counseling [id number]. Thank you for allowing me to participate in the care of this patient. If you hav e any questions please do not hesitate to contact our office. Berna Madison, DNP, APPIAN BPM DEVELOPER, CELLOPHANE WRAPPING EXAMINER-C Collaborating Physician: Dr. Ramo Lamb [place] [facility] at [facility] Current Medications (including today's revisions) [...] synthroid, zofran, protonix; Oral Diet Order: Cardiac;Diabetic 1421-4394 Kcal/day (60 g carb/meal, 30 g carb/ HS snack); Current Oral Intake: Marginally Adequate Estimated Calorie Needs: 1800(30kcal/kg/present wt) Estimated Protein Needs: 72-84(1.2-1.4g/kg/present wt) Malnutrition Assessment: Does not meet criteria; ; ; ; ; Nutrition Focused Physical Assessment: ; ; Muscle Wasting: Yes; Severity: Moderate; Location: Clavicle, Yarsanism Edema: No; ; Pressure Injury: none noted [...] Within 72 hours Brigitte Barlow, MS, RD, CASH APPLICATIONS ASSOCIATE, LD, CCTD Office: [phone] Available on Voalte * Claudette Walton APRN-TWYLA [...] be severely anemic and was admitted to [facility] service for acute GI bleed. She has medical history significant for cirrho sis, heart failure with preserved ejection fraction (60%), nonischemic cardiomyo yolanda ([facility] 05/2020 no CAD), mechanical aortic valve [...] and examined with Dr.Vidic Claudette Walton, HF, CELLOPHANE WRAPPING EXAMINER [id number] Assessment: Acute on Chronic diastolic HFpEF, EF: [...] vitals filed for this visit. Recommendations: GDMT ORNAMENTAL RAIL INSTALLER Changes BB Lopressor 12.5 mg twice daily [...] Yes Strict I/O. Standing scale daily weight. Senior Sharepoint Architect consultation to discuss sodium restricted diet recommended. [...] 06/06/2020 Performed by Bao Hernández MD at [facility] ENDO COLONOSCOPY DIAGNOSTIC WITH SPECIMEN COLLECTION BY BRUSHING/ WASHING - FLEXI BLE N/A 06/06/2020 Performed by Bao Hernández MD at [facility] ENDO ANGIOGRAPHY CORONARY ARTERY WITH RIGHT AND LEFT HEART CATHETERIZATION N/A Performed by Higinio Clarke MD at 2 FABRICATION DEPARTMENT SUPERVISOR POSSIBLE PERCUTANEOUS CORONARY STENT PLACEMENT WITH ANGIOPLASTY N/A 1 Performed by Higinio Clarke MD at [facility] FABRICATION DEPARTMENT SUPERVISOR Family History Problem Relation Age of Onset [...] the treatment plan as outlined by the CELLOPHANE WRAPPING EXAMINER The Complexity of medical decision making is [...] with my edits as outlined below. 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 Patricia Cool GI fellow Pager [phone] 10/20/2020 3:15 PM PMH: Medical History: Diagnosis [...] 06/06/2020 Performed by Bao Hernández MD at [facility] ENDO COLONOSCOPY DIAGNOSTIC WITH SPECIMEN COLLECTION BY BRUSHING/ WASHING - FLEXI BLE N/A 06/06/2020 Performed by Bao Hernández MD at [facility] ENDO ANGIOGRAPHY CORONARY ARTERY WITH RIGHT AND LEFT HEART CATHETERIZATION N/A Performed by Higinio Clarke MD at [facility] FABRICATION DEPARTMENT SUPERVISOR POSSIBLE PERCUTANEOUS CORONARY STENT PLACEMENT WITH ANGIOPLASTY N/A Performed by Higinio Clarke MD at [facility] FABRICATION DEPARTMENT SUPERVISOR SH: Social History Socioeconomic History Marital status: [...] Plan D/c home today Pt lives in [facility] with her SO of 6 years. 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 She does not drive. Pt will have transport home provided by her SO Catarino. He will be coming from [facility]. 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 She had her certified family mediator Riley Hopson following inrs/coum marco dosing. Pt [...] provide transport. he will be coming from [place]. Does the patient use Medicaid Transportation?: No Next Level of Care (Acute Psych discharges only) Discharge Disposition Selected Continued Care - Admitted Since 10/20/2020 No services have been selected for the patient. Gavi Nobles Integrated Nurse Hydroelectric Plant Mechanical Engineer Bsn Rn-[facility] [phone] Pager [phone] * Care Coordination-Inpatient - Caitlin Esparza RN [...] ulcers). 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 Appointment Date/Time: 12/19/2020 @ 12pm Appointment Provider: Dr Allison Marti. Agency Cashier Follow up: Labs Labs: CBC ordered and faxed to patient's preferred lab [email or web address] in [facility]. Hospital is currently closed, but lab services are still available. Order fax ed to number provided by premium representative when called to verify lab services at [facility] location. . Clinic fax number placed on order for results t o be sent back to. Fax confirmation received. Due Date: Approx 11/02/2020 Education addressed: Phoned patient prior to today's DC and introduced myself a nd the role of inpatient nurse coordinator. Reviewed above DC plan. Reviewed sig ns/symptoms of GI bleeding. If bleeding occurs she was instructed to return to [facility] ER for evaluation. She verbalized understanding. Encouraged patient/family to call the clinic with any hepatology needs after discharge. [phone]. ~Will be available if patient needs anything from a hepatology standpoint while in the hospital Friday through Friday 7am-5pm ~Discharge information to be sent to the hepatology provider & team that will follow with patient in the outpatient clinic. Rachael Esparza RN-BSN Inpatient Hepatology Nurse Coordinator Pgr: [phone] [facility] [phone] * Care Plan - Shalonda Santizo RN [...] Nutrition Deficit Goal: Adequate nutritional intake 10/26/2020 06 by Elizabeth Stafford RN Outcome: Goal Ongoing 10/26/2020 0637 by Elizabeth Stafford RN Outcome: Goal Ongoing * Care Naseem - Elizabeth Stafford RN - 10/26/2020 6:37 [...] any assist is needed. Pt lives in [facility] with her SO of 6 years. 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 She does not drive. Pt will have transport home provided by her SO Catarino. He will be coming from [facility]. Pt has used HH and home infusion in the past, but could not remember the name of the companies. 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 She had her certified family mediator Riley Hopson following inrs/coum marco dosing. Pt reports that sometimes her HF team would follow it and adjust he r coumadin. Plan: holding warfarin today. Monitoring pt when back on warfarin and adjust as needed pending INRs. Pending d/c . Will follow. Patient Address/Phone [address] [facility] [address] (home) Emergency Contact Extended Emergency Contact [...] provide transport. he will be coming from [place]. Does the patient use Medicaid Transportation?: No [...] Source of Income Source Of Income: Other mcc income Financial Assistance Needed? no reported concerns regarding medication or medical coverage Psychosocial Needs Mental Health Mental Health History: No Substance Use History Substance Use History Screen: No Other na Current/Previous Services PCP Garfield Gray, , Pharmacy [facility] [address] [address] Durable Medical Equipment Durable Medical Equipment at [...] pt had cardiac rehab post CABG at [facility] outpt. OT: No PIE ICER MACHINE: No Long Term Facility/Residential SNF: No NH: No Inpatient Rehab IPR: No Long-Term Acute Care Hospital LTACH: No Acute Hospital Stay Acute Hospital Stay: In the past Was patient's stay within the last 30 days?: No Gavi Nobles Integrated Nurse Hydroelectric Plant Mechanical Engineer Bsn Rn-[facility] [phone] Pager [phone] * Care Plan - Maggi Salamanca RN [...] Zaria Paulson Attending: Duyen Arroyo DO Service: [facility]- [id number] Admission Date: 10/20/2020 LOS: 1 day A Code/Rapid Response Timeline Event Report has been created for this patient on 10/21/20 at 1224 [employer] called due to concerns from a HF [...] Zaria Paulson Attending: Vijaya Millard MD Service: [facility] L- 6154 Admission Date: 10/20/2020 LOS: 0 days [...] - 10/20/2020 4:38 PM CDT Assigned to [facility] as moving to 7. Vijaya Millard MD [...] hor Goal Type Problems ed? [facility] On track (10/23/2020 Yes [place], 1:06 PM CDT) CHRYSTAL Singh documented as of this encounter Procedures Comments Procedure Name Priority Date/Time Associated Diag nosis PTT(APTT) Routine 10/26/2020 6:16 AM CDT HC [...] LAB eGFR Non 55 (L) >60 mL/min MAIN LAB Comment: Citizen [place] The eGFR is not validated f or use in drug dosing adjustments. Continue to use estimated creatinine clearance per dosing reference text. Please contact the Clinical Pharmacist for questions. eGFR >60 >60 mL/min [facility] MAIN LAB Citizen [place] Comment: The eGFR is not validated for use in drug dosing adjustments. Continue to use estimated creatinine clearance per dosing reference text. Please contact the Clinical Pharmacist for questions. Specimen Blood Performing Organization Address City/[facility]/ZIP Code P shane Number [facility] MAIN LAB [address] [place] [address] * PTT (APTT) (10/26/2020 6:16 AM CDT) APTT 34.5 24.0 - 36.5 SEC [facility] MAIN LAB Specimen Performing Organization Address [facility] P shane Number [facility] MAIN LAB [address] [place] [address] * PROTIME INR (PT) (10/26/2020 6:16 AM CDT) INR 1.4 (H) 0.8 - 1.2 MAIN LAB Specimen Blood Performing Organization Address City/[facility] P shane Number [facility] MAIN LAB [address] [place] [address] * MAGNESIUM (10/26/2020 6:16 AM CDT) Magnesium 1.9 1.6 - 2.6 mg/dL [facility] MAIN LAB Specimen Blood Performing Organization Address [facility] P shane Number [facility] MAIN [facility] [address] [place] [address] * CBC (10/26/2020 6:16 AM CDT) White [...] P shane Number [facility] MAIN LAB [address] [place] [address] * COMPREHENSIVE METABOLIC PANEL (10/26/2020 6:16 AM [...] (L) >60 mL/min [facility] MAIN LAB Comment: [place] The eGFR is not validated f or use in drug dosing adjustments. Continue to use estimated creatinine clearance per dosing reference text. Please contact the Clinical Pharmacist for questions. eGFR 59 (L) >60 mL/min [facility] MAIN LAB [place] Comment: The eGFR is not validated for use in drug dosing adjustments. Continue to use estimated creatinine clearance per dosing reference text. Please contact the Clinical Pharmacist for questions. Specimen Blood Performing Organization Address City/State/ZIP Code P shane Number [facility] MAIN LAB [address] [place] [address] * PTT (APTT) (10/26/2020 12:27 AM CDT) APTT 75.3 (H) 24.0 - 36.5 SEC [facility] MAIN LAB Specimen Blood Performing Organization Address [facility] P shane Number [facility] MAIN LAB [address] [place] [address] * PTT (APTT) (10/25/2020 6:00 PM CDT) APTT 30.1 24.0 - 36.5 SEC MAIN LAB Specimen Blood Performing Organization Address [facility] P shane Number [facility] MAIN LAB [address] [place] [address] * MAGNESIUM (10/25/2020 6:05 AM CDT) Magnesium 1.9 1.6 - 2.6 mg/dL MAIN LAB Specimen Performing Organization Address [facility] P shane Number MAIN LAB [address] [place] [address] * CBC (10/25/2020 6:05 AM CDT) White Blood 5.0 4.5 - 11.0 K/UL MAIN LAB Cells RBC 2.43 (L) 4.0 - 5.0 M/UL MAIN LAB Hemoglobin 7.9 (L) 12.0 - 15.0 GM/DL MAIN LAB Hematocrit 23.0 (L) 36 - [...] MAIN LAB Specimen Blood Performing Organization Address [facility] P shane Number MAIN LAB [address] [place] [address] * ALPHA FETO PROTEIN (AFP) (10/25/2020 6:05 AM CDT) Alpha Feto 1.4 0.0 - 15.0 NG/ML MAIN LAB Protein Specimen Blood Performing Organization Address [facility] P shane Number MAIN LAB [address] [place] [address] * COMPREHENSIVE METABOLIC PANEL (10/25/2020 6:05 AM [...] >60 >60 mL/min [facility] MAIN LAB Comment: [place] The eGFR is not validated f or use in drug dosing adjustments. Continue to use estimated creatinine clearance per dosing reference text. Please contact the Clinical Pharmacist for questions. eGFR >60 >60 mL/min [facility] MAIN LAB [place] Comment: The eGFR is not validated for use in drug dosing adjustments. Continue to use estimated creatinine clearance per dosing reference text. Please contact the Clinical Pharmacist for questions. Specimen Blood Performing Organization Address City/State/ZIP Code P shane Number [facility] MAIN LAB [address] [place] [address] * PROTIME INR (PT) (10/25/2020 6:05 AM CDT) INR 1.4 (H) 0.8 - 1.2 [facility] MAIN LAB Specimen Blood Performing Organization Address City/State/ZIP Code P shane Number [facility] MAIN [facility] [address] [place] [address] * IRON + BINDING CAPACITY + %SAT+ FERRITIN (10/24/2020 5:47 AM CDT) Iron 32 (L) 50 - 160 MCG/DL [facility] MAIN LAB Iron 262 (L) 270 - 380 MCG/DL [facility] MAIN LAB Binding-TIBC % Saturation 12 (L) 28 - 42 % [facility] MAIN LAB Ferritin 130 10 - 200 NG/ML [facility] MAIN LAB Specimen Performing Organization Address City/[facility] Code P shane Number [facility] MAIN [facility] [address] [place] [address] * CBC (10/24/2020 5:47 AM CDT) White [...] MAIN LAB Specimen Blood Performing Organization Address [facility] P shane Number [facility] MAIN [facility] [address] [place] [address] * COMPREHENSIVE METABOLIC PANEL (10/24/2020 5:47 AM CDT) Pathologist [facility] Sodium 131 (L) 137 - 147 MMOL/L [...] (L) >60 mL/min [facility] MAIN LAB Comment: [place] The eGFR is not validated f or use in drug dosing adjustments. Continue to use estimated creatinine clearance per dosing reference text. Please contact the Clinical Pharmacist for questions. eGFR 44 (L) >60 mL/min [facility] MAIN LAB Citizen [place] Comment: The eGFR is not validated for use in drug dosing adjustments. Continue to use estimated creatinine clearance per dosing reference text. Please contact the Clinical Pharmacist for questions. Specimen Blood Performing Organization Address City/State/ZIP Code P shane Number [facility] MAIN [facility] [address] [place] [address] * PROTIME INR (PT) (10/24/2020 5:47 AM CDT) INR 1.8 (H) 0.8 - 1.2 [facility] MAIN LAB Specimen Blood Performing Organization Address City/[facility]/ZIP Code P shane Number [facility] MAIN [facility] [address] [place] [address] * COMPREHENSIVE METABOLIC PANEL (10/23/2020 12:35 PM [...] (L) >60 mL/min [facility] MAIN LAB Comment: Citizen [place] The eGFR is not validated f or use in drug dosing adjustments. Continue to use estimated creatinine clearance per dosing reference text. Please contact the Clinical Pharmacist for questions. eGFR 35 (L) >60 mL/min [facility] MAIN LAB [place] Comment: The eGFR is not validated for use in drug dosing adjustments. Continue to use estimated creatinine clearance per dosing reference text. Please contact the Clinical Pharmacist for questions. Specimen Blood Performing Organization Address City/[facility]/ZIP Code P shane Number [facility] MAIN [facility] [address] [place] [address] * CBC (10/23/2020 12:35 PM CDT) White [...] MAIN LAB Specimen Blood Performing Organization Address City/[facility] P shane Number [facility] MAIN [facility] [address] [place] [address] * PROTIME INR (PT) (10/23/2020 8:37 AM CDT) INR 2.8 (H) 0.8 - 1.2 [facility] MAIN LAB Specimen Blood Performing Organization Address City/[facility]/ZIP Code P shane Number [facility] MAIN [facility] [address] [place] [address] * HEMOGLOBIN & HEMATOCRIT (10/22/2020 11:17 PM CDT) Hemoglobin 7.9 (L) 12.0 - 15.0 GM/DL [facility] MAIN LAB Hematocrit 22.8 (L) 36 - 45 % [facility] MAIN LAB Specimen Blood Performing Organization Address City/[facility]/ZIP Code P shane Number [facility] MAIN [facility] [address] [place] [address] * TRANSFUSE RBC'S (10/22/2020 9:53 PM CDT) Specimen Blood * TRANSFUSE RBC'S (10/22/2020 9:53 PM CDT) Specimen Blood * LACTIC ACID(LACTATE) (10/22/2020 8:59 PM CDT) Lactic Acid 1.9 0.5 - 2.0 MMOL/L [facility] MAIN LAB Specimen Blood Performing Organization Address City/[facility] Code P shane Number [facility] MAIN [facility] [address] [place] [address] * CBC (10/22/2020 8:59 PM CDT) White [...] MAIN LAB Specimen Blood Performing Organization Address City/[facility] Code P shane Number [facility] MAIN [facility] [address] [place] [address] * CBC (10/22/2020 12:34 PM CDT) White [...] MAIN LAB Specimen Blood Performing Organization Address [facility] Code P shane Number [facility] MAIN LAB [address] [place] [id number] * MAGNESIUM (10/22/2020 3:12 AM CDT) Magnesium 2.0 1.6 - 2.6 mg/dL [facility] MAIN LAB Specimen Performing Organization Address [facility] P shane Number [facility] MAIN LAB [address] [place] [id number] * CBC (10/22/2020 3:12 AM CDT) White [...] MAIN LAB Specimen Blood Performing Organization Address [facility] P shane Number [facility] MAIN [facility] [address] [place] [phone] * PROTIME INR (PT) (10/22/2020 3:12 AM CDT) INR 3.1 (H) 0.8 - 1.2 [facility] MAIN LAB Specimen Blood Performing Organization Address [facility] Code P shane Number [facility] MAIN LAB [address] [place] [phone] * COMPREHENSIVE METABOLIC PANEL (10/22/2020 3:12 AM [...] (L) >60 mL/min [facility] MAIN LAB Comment: Citizen [place] The eGFR is not validated f or use in drug dosing adjustments. Continue to use estimated creatinine clearance per dosing reference text. Please contact the Clinical Pharmacist for questions. eGFR 33 (L) >60 mL/min [facility] MAIN LAB Citizen [place] Comment: The eGFR is not validated for use in drug dosing adjustments. Continue to use estimated creatinine clearance per dosing reference text. Please contact the Clinical Pharmacist for questions. Specimen Blood Performing Organization Address City/State/ZIP Code P shane Number MAIN LAB [address] [place] [address] * EGD REPORT (10/21/2020 9:59 PM CDT) Provation Patient Name: Khurram SPARKS OTHER Report Procedure Date: 10/21/2020 9:59 RESULT S PM CSN: [id number] Date of : 1960 Gender: Female Attending Physician: Cosmo Gomez MD Procedure: Upper GI endoscopy Indications: Hematochezia Providers: Cosmo Gomez MD (Doctor), Jesus Senior (Fellow), Sarah Sapp (Nurse), Omid Brooke Fire Range Technician (Fire Range Technician) Referring Physician: Cosmo Gomez MD Medications: Monitored [...] 6 seconds Procedure Code(s): --- Professional --- 92164, Esophagogastroduodenoscopy, flexible, transoral; diagnostic, including collection of specimen(s) by brushing or washing, when performed (separate procedure) Diagnosis Code(s): --- Professional --- K22.8, Other specified diseases of esophagus K92.1, Melena (includes Hematochezia) CPT copyright 2020 [place] [employer]. All rights reserved. The codes documented in this report are preliminary and upon rice cleaning machine tender review may be revised to meet current [...] Date: 10/21/2020 9:34 RESULT S PM CSN: [id number] Date of : 1960 Gender: Female Attending Physician: Cosmo Gomez MD Procedure: Flexible Sigmoidoscopy Indications: Hematochezia Providers: Cosmo Gomez MD (Doctor), Sarah Sapp (Nurse), Omid Brooke, Fire Range Technician (Fire Range Technician), Jesus Senior (Fellow) Referring Physician: Cosmo Gomez [...] 40 seconds Procedure Code(s): --- Professional --- 96163, Sigmoidoscopy, flexible; with control of bleeding, any method Diagnosis Code(s): --- Professional --- K55.21, Angiodysplasia of colon with hemorrhage K92.1, Melena (includes Hematochezia) CPT copyright 2020 [employer] [place] [employer]. All rights reserved. The codes documented in this report are preliminary and upon rice cleaning machine tender review may be revised to meet current compliance requirements. Attending Participation: I personally performed the entire procedure. I was present and participated during the entire procedure, including non-turpin portions. MD Cosmo Emmanuel MD 10/23/2020 3:34:56 PM The attending physician has electronically signed and finalized this document. Jesus Senior, Number of Addenda: 0 Note Initiated On: 10/21/2020 9:34 PM Specimen Performing Organization Address City/[facility]/ZIP Code P shane Number K[facility] OTHER RESULTS * PROTIME INR (PT) (10/21/2020 6:46 PM CDT) INR 3.7 (H) 0.8 - 1.2 [facility] MAIN LAB Specimen Blood Performing Organization Address [facility] P shane Number [facility] MAIN LAB [address] [place] [address] * CBC (10/21/2020 6:46 PM CDT) White [...] MAIN LAB Specimen Blood Performing Organization Address [facility] P shane Number MAIN LAB [address] [place] [address] * TRANSFUSE RBC'S (10/21/2020 1:35 PM CDT) Specimen Blood * TRANSFUSE RBC'S (10/21/2020 1:35 PM CDT) Specimen Blood * PREPARE PLASMA (FFP) (10/21/2020 12:38 PM CDT) Units Ordered 1 MAIN LAB Unit Number [id number] MAIN LAB Blood Component THAWED PLASMA [facility] MAIN LAB Type Unit Division 00 MAIN LAB Status OF Unit TRANSFUSED [facility] MAIN LAB ISSUE DATE TIME [id number] [facility] MAIN LAB PRODUCT CODE [id number] [facility] MAIN LAB BLOOD TYPE O POS [facility] MAIN LAB CODING STATUS 5100 [facility] MAIN LAB BLOOD [id number] [facility] MAIN LAB EXPIRATION DATE Transfusion OK TO TRANSFUSE MAIN LAB Status Specimen Other (Specify) Performing Organization Address City/State/ZIP Code P shane Number MAIN LAB [address] [place] [address] * 2D + DOPPLER ECHO (10/21/2020 9:56 [...] = LAB AV index 0.50 OTHER OUTSIDE ([place]) LAB LVOT area 2.96 cm2 OTHER OUTSIDE [...] 18.07 OTHER OUTSIDE ratio LAB Cardiology Siemens [id number] OTHER OUTSIDE Ultrasound LAB Machine Specimen Narrative [...] MAIN LAB Specimen Blood Performing Organization Address [facility] P shane Number [facility] MAIN LAB [address] [place] [address] * TROPONIN-I (10/21/2020 5:15 AM CDT) Troponin-I 0.04 0.0 - 0.05 NG/ML [facility] MAIN LAB Specimen Performing Organization Address [facility] P shane Number [facility] MAIN [facility] [address] [place] [address] * CBC (10/21/2020 5:15 AM CDT) White [...] MAIN LAB Specimen Blood Performing Organization Address [facility] P shane Number [facility] MAIN LAB [address] [place] [address] * PROTIME INR (PT) (10/21/2020 5:15 AM CDT) INR 3.7 (H) 0.8 - 1.2 [facility] MAIN LAB Specimen Blood Performing Organization Address [facility] P shane Number [facility] MAIN LAB [address] [place] [address] * COMPREHENSIVE METABOLIC PANEL (10/21/2020 5:15 AM [...] (L) >60 mL/min [facility] MAIN LAB Comment: [place] The eGFR is not validated f or use in drug dosing adjustments. Continue to use estimated creatinine clearance per dosing reference text. Please contact the Clinical Pharmacist for questions. eGFR 37 (L) >60 mL/min [facility] MAIN LAB [place] Comment: The eGFR is not validated for use in drug dosing adjustments. Continue to use estimated creatinine clearance per dosing reference text. Please contact the Clinical Pharmacist for questions. Specimen Blood Performing Organization Address City/State/ZIP Code P shane Number MAIN LAB [address] [place] [address] * LACTIC ACID(LACTATE) (10/21/2020 5:10 AM CDT) Pathologist [facility] Lactic Acid 1.9 0.5 - 2.0 MMOL/L MAIN LAB Specimen Blood Performing Organization Address City/State/ZIP Code P shane Number [facility] [address] [place] [address] * TRANSFUSE RBC'S (10/20/2020 10:16 PM CDT) Specimen Blood * CBC (10/20/2020 10:15 PM CDT) Pathologist [facility] White Blood 11.7 (H) 4.5 - 11.0 [...] MAIN LAB Specimen Blood Performing Organization Address City/[facility]/ZIP Code P shane Number [facility] MAIN [facility] [address] [place] [address] * PHOSPHORUS (10/20/2020 5:12 PM CDT) Phosphorus 3.3 2.0 - 4.5 MG/DL [facility] MAIN LAB Specimen Blood Performing Organization Address [facility] P shane Number [facility] [address] [place] [address] * MAGNESIUM (10/20/2020 5:12 PM CDT) Magnesium 1.8 1.6 - 2.6 mg/dL [facility] Specimen Blood Performing Organization Address [facility] Code P shane Number [facility] [address] [place] [address] * TROPONIN-I (10/20/2020 5:12 PM CDT) Troponin-I 0.04 0.0 - 0.05 NG/ML [facility] Specimen Blood Performing Organization Address [facility] P shane Number [facility] [address] [place] [address] * COMPREHENSIVE METABOLIC PANEL (10/20/2020 5:12 PM [...] (L) >60 mL/min [facility] Comment: Citizen Of [place] The eGFR is not validated f or use in drug dosing adjustments. Continue to use estimated creatinine clearance per dosing reference text. Please contact the Clinical Pharmacist for questions. eGFR 49 (L) >60 mL/min [facility] Citizen [place] Comment: The eGFR is not validated for use in drug dosing adjustments. Continue to use estimated creatinine clearance per dosing reference text. Please contact the Clinical Pharmacist for questions. Specimen Blood Performing Organization Address City/State/ZIP Code P shane Number MAIN LAB [address] [place] [address] * PTT (APTT) (10/20/2020 5:12 PM CDT) APTT 34.9 24.0 - 36.[address] [facility] Specimen Blood Performing Organization Address City/[facility]/ZIP Code P shane Number MAIN LAB [address] [place] [address] * PROTIME INR (PT) (10/20/2020 5:12 PM CDT) INR 3.1 (H) 0.8 - 1.2 [facility] Specimen Blood Performing Organization Address City/[facility]/ZIP Code P shane Number MAIN LAB [address] [place] [address] * CBC (10/20/2020 5:12 PM CDT) White Blood 11.0 4.5 - 11.0 K/UL [facility] Cells RBC 1.97 (L) 4.0 - 5.0 M/UL [facility] Hemoglobin 6.1 (L) 12.0 - 15.0 GM/DL MAIN LAB Hematocrit 17.6 (L) 36 - [...] MAIN LAB Specimen Blood Performing Organization Address City/[facility]/ZIP Code P shane Number MAIN LAB [address] [place] [address] * POC GLUCOSE (10/20/2020 5:11 PM CDT) Glucose, POC 152 (H) 70 - 100 MG/DL [facility] Specimen Performing Organization Address City/[facility] P shane Number MAIN LAB [address] [place] [address] * TRANSFUSE RBC'S (10/20/2020 4:37 PM CDT) Specimen Blood * BASIC METABOLIC PANEL (10/20/2020 3:29 PM CDT) Pathologist [facility] Sodium 132 (L) 137 - 147 MMOL/L [facility] Potassium 3.6 3.5 - 5.1 MMOL/L [facility] Chloride 99 98 - 110 MMOL/L [facility] CO2 24 21 - 30 MMOL/L [facility] Anion Gap 9 3 - 12 MAIN LAB Glucose 118 (H) 70 - 100 MG/DL [facility] Blood Urea 40 (H) 7 - 25 MG/DL [facility] Nitrogen Creatinine 1.28 (H) 0.4 - 1.00 MG/DL [facility] Calcium 7.7 (L) 8.5 - 10.6 MG/DL MAIN LAB eGFR Non 43 (L) >60 mL/min MAIN LAB Comment: Citizen [place] The eGFR is not validated f or use in drug dosing adjustments. Continue to use estimated creatinine clearance per dosing reference text. Please contact the Clinical Pharmacist for questions. eGFR 52 (L) >60 mL/min MAIN LAB Citizen [place] Comment: The eGFR is not validated for use in drug dosing adjustments. Continue to use estimated creatinine clearance per dosing reference text. Please contact the Clinical Pharmacist for questions. Specimen Blood Performing Organization Address [facility]/ZIP Code P shane Number MAIN LAB [address] [place] [address] * COVID-19 (SARS-COV-2) PCR (10/20/2020 12:53 PM CDT) COVID-19 FLOCKED SWAB MAIN LAB (SARS-CoV-2) NASOPHARYNGEAL PCR Source COVID-19 NOT DETECTED DN-NOT DETECTED [facility] (SARS-CoV-2) Comment: PCR This assay [...] performance characteristics have been verified by the [facility] clinical laboratory. Fact sheet for providers: https://www.fda.gov/media/1363 13/download Fact sheet for patients: https://www.fda.gov/media/1363 12/download Specimen Flocked Swab - Nasopharyngeal Performing Organization Address City/State/ZIP Code P shane Number [facility] [address] [place] [address] * BLOOD TYPE CONFIRMATION - ORDER ONLY IF REQUESTED BY LAB (10/20/2020 11:54 AM CDT) ABO/RH(D) O POS [facility] Specimen Bowel Contents Performing Organization Address City/[facility]/ZIP Code P shane [address] [facility] [address] [place] [address] * TYPE & CROSSMATCH (10/20/2020 11:33 AM CDT) Units Ordered 7 MAIN LAB Crossmatch 10/23/2020,2359 MAIN LAB Expires Record Check 2ND TYPE REQUIRED MAIN LAB ABO/RH(D) O POS MAIN LAB Antibody Screen NEG MAIN LAB Electronic YES MAIN LAB Crossmatch Unit Number [id number] MAIN LAB Blood Component RBC,ADSOL,LEUKO REDUCED,1ST [facility] AB Type CONT. Unit Division 00 MAIN LAB Status OF Unit TRANSFUSED MAIN LAB ISSUE DATE TIME [facility] PRODUCT CODE [id number] [facility] BLOOD TYPE O POS [facility] CODING STATUS 5100 [facility] BLOOD [id number] [facility] EXPIRATION DATE Transfusion OK TO TRANSFUSE [facility] Status Crossmatch COMPATIBLE,ELECTRONIC [facility] Result Unit Number [id number] [facility] Blood Component RBC,ADSOL,LEUKO REDUCED [facility] Type Unit Division 00 [facility] Status OF Unit TRANSFUSED [facility] ISSUE DATE TIME [id number] [facility] PRODUCT CODE [id number] [facility] BLOOD TYPE O POS [facility] CODING STATUS 5100 [facility] BLOOD [id number] [facility] EXPIRATION DATE Transfusion OK TO TRANSFUSE [facility] Status Crossmatch COMPATIBLE,ELECTRONIC [facility] Result Unit Number [id number] [facility] Blood Component RBC,ADSOL,LEUKO REDUCED [facility] Type Unit Division 00 [facility] Status OF Unit TRANSFUSED [facility] ISSUE DATE TIME [id number] [facility] PRODUCT CODE [id number] [facility] BLOOD TYPE O POS [facility] CODING STATUS 5100 [facility] BLOOD [id number] [facility] EXPIRATION DATE Transfusion OK TO TRANSFUSE [facility] Status Crossmatch COMPATIBLE,ELECTRONIC [facility] Result Unit Number [id number] [facility] Blood Component RBC,ADSOL,LEUKO REDUCED,2ND [facility] AB Type CONT. Unit Division 00 [facility] Status OF Unit TRANSFUSED [facility] ISSUE DATE TIME [id number] [facility] PRODUCT CODE [id number] [facility] BLOOD TYPE O POS [facility] CODING STATUS 5100 [facility] BLOOD [id number] [facility] EXPIRATION DATE Transfusion OK TO TRANSFUSE [facility] Status Crossmatch COMPATIBLE,ELECTRONIC [facility] Result Unit Number [id number] [facility] Blood Component RBC,ADSOL,LEUKO REDUCED [facility] Type Unit Division 00 [facility] Status OF Unit TRANSFUSED [facility] ISSUE DATE TIME [facility] PRODUCT CODE [id number] [facility] BLOOD TYPE O POS [facility] CODING STATUS 5100 [facility] BLOOD [id number] [facility] EXPIRATION DATE Transfusion OK TO TRANSFUSE [facility] Status Crossmatch COMPATIBLE,ELECTRONIC [facility] Result Unit Number [id number] [facility] Blood Component RBC,ADSOL,LEUKO REDUCED [facility] Type Unit Division 00 [facility] Status OF Unit TRANSFUSED [facility] ISSUE DATE TIME [facility] PRODUCT CODE [id number] [facility] BLOOD TYPE O POS [facility] CODING STATUS 5100 [facility] BLOOD [id number] [facility] EXPIRATION DATE Transfusion OK TO TRANSFUSE [facility] Status Crossmatch COMPATIBLE,ELECTRONIC [facility] Result Specimen Lung Performing Organization Address [facility]/[place] [facility] [place] shane Number [facility] [address] [place] [address] * POC PT/INR (10/20/2020 9:13 AM CDT) INR POC 2.8 (H) 0.8 - 1.2 [facility] Specimen Performing Organization Address [facility] P shane Number [facility] [address] [place] [phone] * MAGNESIUM (10/20/2020 9:07 AM CDT) Magnesium 1.8 1.6 - 2.6 mg/dL [facility] Specimen Performing Organization Address [facility] P shane Number [facility] [address] [place] [phone] * PROTIME INR (PT) (10/20/2020 9:07 AM CDT) INR 3.2 (H) 0.8 - 1.2 [facility] Specimen Performing Organization Address [facility] P shane Number [facility] [address] [place] [phone] * BLUE TOP TUBE (10/20/2020 9:07 AM CDT) Specimen Performing Organization Address [facility] P shane Number [facility] RESULTS [...] 41 (L) >60 mL/min MAIN LAB Comment: Citizen [place] The eGFR is not validated f or use in drug dosing adjustments. Continue to use estimated creatinine clearance per dosing reference text. Please contact the Clinical Pharmacist for questions. eGFR 50 (L) >60 mL/min [facility] Citizen [place] Comment: The eGFR is not validated for use in drug dosing adjustments. Continue to use estimated creatinine clearance per dosing reference text. Please contact the Clinical Pharmacist for questions. Specimen Blood Performing Organization Address City/State/ZIP Code P shane Number [facility] [address] [place] [address] * CBC (10/20/2020 9:07 AM CDT) White Blood 7.8 4.5 - 11.0 K/UL [facility] Cells RBC 1.96 (L) 4.0 - 5.0 M/UL [facility] Hemoglobin 5.9 (LL) 12.0 - 15.0 GM/DL [facility] Comment: CRITICAL VALUE CALLED TO AND READ BACK BY/TIME/TECH CHRYSTAL DENNISON at 10/20/2020 09:46:41 by 1949 Hematocrit 17.0 (L) 36 - 45 % [facility] MCV 86.9 80 - [address] [facility] MCH 30.1 26 - [address] [facility] MCHC 34.7 32.0 - 36.0 G/DL [facility] RDW 21.9 (H) 11 - 15 % [facility] Platelet Count 200 150 - 400 K/UL [facility] MPV 7.2 7 - [address] [facility] Specimen Blood Performing Organization Address City/State/ZIP Code P shane Number MAIN LAB [address] [place] [address] * TELEMETRY STRIPS-SCAN (10/20/2020 12:00 AM CDT) [...] Take 37.5 mg Removed from by mouth [employer] Med List every 48 hours. 08/01/2020 10/26/2020 [...] DAILY, First Angie RN)17 58 dose on [place] 10/22/20 at 1145, Until (Given - Provider: [...] Each Nostril, TWICE DAILY, CHRYSTAL Walton - Keymar son: First dose on Fri10/20/20 at 1315, [...] convulsions. 06 (Given - Provider: Jojo Mcelroy) 0625 (Given [...] ) potassium chloride SR (K-DUR) tablet 20 08 (Given - mEq Provider: Nupur 20 mEq, [...] 0-25 mL/hr, Intravenous, TITRATE DIRECTED , Starting 10/25/20 at 1745, Until Toya 10/26/20 at 1248, [...] bumetanide (BUMEX) tablet 2 mg 1 021 bumetanide (BUMEX) tablet 3 mg 1 021 heparin (porcine) 20,000 Units in 06/2020 dextrose 5% (D5W) 250 mL IV infusion (dbl conc) heparin (porcine) BOLUS for continuous 10/25/2020 inf (vial) 1,200-2,400 Units heparin (porcine) injection 4,210 Units 10/25/2020 cefTRIAXone (ROCEPHIN) IVP 1 g 1 [...]
[2020-12-13 12:22] LABS: HEMATOCRIT 30 % (35-52); HEMOGLOBIN 9.7 g/dL (11.5-16.0); MEAN CORPUSCULAR HEMOGLOBIN 29 pg (25-34); MEAN CORPUSCULAR VOLUME 90 fL (80-99); WHITE BLOOD COUNT 24.4 10^3/uL (4.3-11.0)
[2020-12-13 12:23] LABS: BASOPHILS % (AUTO) 0 % (0-10); EOSINOPHILS % (AUTO) 0 % (0-10); LYMPHOCYTES % (AUTO) 1 % (12-44); MEAN CORPUSCULAR HGB CONC 32 g/dL (32-36); MEAN PLATELET VOLUME 8.7 fL (9.0-12.2); MONOCYTES % (AUTO) 3 % (0-12); NEUTROPHILS % (AUTO) 95 % (42-75); PLATELET COUNT 460 10^3/uL (130-400)
[2020-12-13 12:24] LABS: BASOPHILS # (AUTO) 0.1 10^3/uL (0.0-0.1); LYMPHOCYTES # (AUTO) 0.3 X 10^3 (1.0-4.0); MONOCYTES # (AUTO) 0.7 X 10^3 (0.0-1.0)
[2020-12-13 12:28] LABS: INR 3.1 (0.8-1.4); PROTHROMBIN TIME PATIENT 31.9 SEC (12.2-14.7)
--- NOTE | 2020-12-13 12:30 | Diagnostic Imaging Report ---
EXAMINATION: CT head without contrast. TECHNIQUE: Multiple contiguous axial images were obtained through the brain without the use of intravenous contrast. All CT scans use one or more of the following dose optimizing techniques: automated exposure control, MA and/or KvP adjustment based on patient size and exam type or iterative reconstruction. HISTORY: Fall. Scalp contusion. Head pain. COMPARISON: 09/09/2020. FINDINGS: No large acute territorial ischemia, mass, or hemorrhage. No midline shift or mass effect. The ventricles, cortical sulci, and basilar cisterns are patent and unremarkable. The orbits are normal. Paranasal sinuses are normal. Mastoid air cells are clear. No soft tissue abnormality is seen. No osseus lesions or fractures are seen. IMPRESSION: 1. No large acute territorial ischemia, mass, or hemorrhage. Dictated by: Dictated on workstation # [id number]
--- NOTE | 2020-12-13 12:34 | Diagnostic Imaging Report ---
HISTORY: Shortness of air. COMPARISON: 11/05/2019 TECHNIQUE: Frontal view the chest FINDINGS: Lung volumes are mildly large. Interstitial markings are prominent. There is mild linear opacity in the lung bases bilaterally. There is no pleural effusion or pneumothorax. There is mild cardiac megaly which appears stable. Sternotomy wires and valve prosthesis are noted. Surgical clips are seen in the mediastinum in the left neck. Bones appear somewhat osteopenic. IMPRESSION: 1. Mild interstitial prominence, could be due to chronic interstitial disease or mild edema. 2. Linear opacities in the lung bases, may represent atelectasis/scarring. Dictated by: Dictated on workstation # [id number]
[2020-12-13 12:47] LABS: ALANINE AMINOTRANSFERASE 31 U/L (0-55); ALKALINE PHOSPHATASE 177 U/L (40-136); BILIRUBIN,TOTAL 0.9 MG/DL (0.1-1.0); BUN/CREATININE RATIO 19; CALCIUM 8.8 MG/DL (8.5-10.1); CARBON DIOXIDE 25 MMOL/L (21-32); CHLORIDE 93 MMOL/L (98-107); CREATININE SERUM 1.07 MG/DL (0.60-1.30); GFR ESTIMATED 53; GLUCOSE 83 MG/DL (70-105); POTASSIUM 4.1 MMOL/L (3.6-5.0); SODIUM 130 MMOL/L (135-145)
[2020-12-13 12:48] LABS: ALBUMIN 3.2 GM/DL (3.2-4.5); TOTAL PROTEIN 7.2 GM/DL (6.4-8.2)
[2020-12-13 12:52] LABS: BAND NEUTROPHILS 3 %; BASOPHILS % (MANUAL) 0 %; EOSINOPHILS % (MANUAL) 0 %; HYPOCHROMASIA MODERATE; LYMPHOCYTES % (MANUAL) 1 %; METAMYELOCYTES % 1 %; MONOCYTES % (MANUAL) 3 %; NEUTROPHILS % (MANUAL) 92 %
[2020-12-13 12:53] LABS: POIKILOCYTOSIS SLIGHT
[2020-12-13] MEDS ORDERED: cefTRIAXone 1,000 MG in WATER (STERILE) FOR INJECTION 10 ML IV ONE (14:15)
[2020-12-13] MEDS ORDERED: CATHETER FLUSH 10 ML SYR IV PRN (15:00)
[2020-12-13] MEDS ORDERED: HOLD METFORMIN - RECEIVED CONTRAST 20 ML VIAL IV SCH (15:00)
[2020-12-13] MEDS ORDERED: IOHEXOL 350 MG/ML 100 ML (OMNIPAQUE 350) VIAL IV ONE (15:00)
[2020-12-13] MEDS ORDERED: NS 100 ML (IVPB) BAG IV ONE (15:00)
--- NOTE | 2020-12-13 15:36 | Diagnostic Imaging Report ---
PROCEDURE: CT chest, abdomen, and pelvis with contrast. TECHNIQUE: Multiple contiguous axial images were obtained through the chest, abdomen, and pelvis after the administration of intravenous contrast. Auto Exposure Controls were utilized during the CT exam to meet ALARA standards for radiation dose reduction. INDICATION: Elevated white blood cell count, sepsis, recent GI bleed, hepatic cirrhosis, and a history of lymphoma. COMPARISON: Exam is compared with abdominopelvic CT of 11/04/2020. FINDINGS: CHEST: There are chest wall and right internal mammary venous collateral channels present. The SVC and innominate veins are patent. The aorta is patent. There is no pulmonary arterial embolus or filling defect. There is no pleural or pericardial effusion. There is distention of the right atrium and infracardiac IVC. There is elevation of the right diaphragm and a small right lateral pleural effusion, stable from prior abdominal CT. There is no pneumothorax. There is only mild right greater than left basilar partial atelectasis. No acute infiltrate or evidence for edema. ABDOMEN AND PELVIS: There has been interval coil embolization of the left extraperitoneal and abdominal wall hematoma. There is no longer active extravasation. The rectus sheath collection shows retraction and reduction in its density likely owing to its expected interval evolution. No findings to suggest continued bleeding into this collection. It today measures 11.5 x 6.5 cm. The left pelvic sidewall extraperitoneal hematoma has resorbed and resolved. No new site of bleeding. Heterogeneous hepatic density and enhancement consistent with the provided history of cirrhosis redemonstrated. There is enhancement of the intra- and extra-hepatic portal veins; however, their directional flow cannot be ascertained at CT. There is a recanalized patent periumbilical vein owing to portal hypertension and mild splenomegaly, stable. The adrenals and pancreas are negative. A moderate volume of abdominopelvic simple appearing intraperitoneal free fluid is stable. The urinary bladder is unremarkable. There is no bowel obstruction. The urinary tracts are unobstructed. There is patency of the distended intrahepatic cava as well as hepatic veins. Subhepatic cava is patent. Splenic and superior mesenteric veins are patent. The aorta and iliac vessels are patent and nonaneurysmal. No adverse development. IMPRESSION: 1. Evolving rectus sheath hematoma with resolution of prior active extravasation post coil embolization with no adverse development or findings of bleeding at today's study. 2. Redemonstration of moderate abdominopelvic ascites, cirrhotic liver, venous distention, and mild splenomegaly, unchanged. 3. Chest wall venous collaterals with no acute cardiopulmonary abnormality apparent. Dictated by: Dictated on workstation # [id number]
[2020-12-13 16:19] LABS: BILIRUBIN,URINE NEGATIVE (NEGATIVE); CLARITY,URINE SL CLOUDY; COLOR,URINE YELLOW; GLUCOSE, URINE (UA) NEGATIVE (NEGATIVE); KETONES,URINE NEGATIVE (NEGATIVE); LEUKOCYTE ESTERASE ,URINE 1+ (NEGATIVE); NITRITE,URINE NEGATIVE (NEGATIVE); PROTEIN,URINE NEGATIVE (NEGATIVE)
[2020-12-13 16:34] LABS: BACTERIA,URINE MODERATE /HPF; SQUAMOUS EPITHELIAL CELL,UR 0-2 /HPF
[2020-12-13 16:36] LABS: AMPHETAMINE SCREEN, URINE NEGATIVE (NEGATIVE); BARBITURATE SCREEN URINE NEGATIVE (NEGATIVE); BENZODIAZEPINES SCREEN URINE NEGATIVE (NEGATIVE); CANNABINOID SCREEN, URINE NEGATIVE (NEGATIVE); COCAINE SCREEN URINE NEGATIVE (NEGATIVE); METHADONE STAT NEGATIVE (NEGATIVE); METHAMPHETAMINE SCREEN URINE S NEGATIVE (NEGATIVE); OPIATE SCREEN URINE POSITIVE (NEGATIVE); OXYCODONE STAT NEGATIVE (NEGATIVE); PROPOXYPHENE STAT NEGATIVE (NEGATIVE); TRICYCLIC ANTIDEPRESSANTS SCRE NEGATIVE (NEGATIVE)
[2020-12-13 16:56] VITALS: BP 115/62
[2020-12-13] MEDS ORDERED: CEPH500T PO (16:58)
== END 2020-12-13 17:00 | disposition home or self-care (01) ==
LOC: EDUNIT# 11:54 → ER FS 11:55
DX: S00.83XA Contusion of other part of head, initial encounter (principal); D72.829 Elevated white blood cell count, unspecified; N39.0 Urinary tract infection, site not specified; R18.8 Other ascites; I48.20 Chronic atrial fibrillation, unspecified; Z79.01 Long term (current) use of anticoagulants; W06.XXXA Fall from bed, initial encounter
CPT/HCPCS: 36415; 70450; 71045; 71260; 74177; 80053; 80162; 80306; 81000; 82140; 83605; 83880; 84484; 85007; 85027; 85610; 86141; 87040; 87077; 87088; 87186; 96374; 99284; G0480; 80320

== ENCOUNTER → 2020-12-14 | Outpatient (CLI) | payer MEDICARE, MEDICAID ==
[2020-12-14 10:10] LABS: INR 3.3 (0.8-1.4); PROTHROMBIN TIME PATIENT 33.8 SEC (12.2-14.7)
== END ==
LOC: IHC 09:33
PROVIDERS: ATTEND Family Medicine
DX: Z79.01 Long term (current) use of anticoagulants (principal)
CPT/HCPCS: 85610

== ENCOUNTER 2020-12-22 13:28 | Emergency (ER) | payer MEDICARE, MEDICAID ==
[~2020-12-22] VITALS: Ht 157.5 cm; Wt 60.3 kg
--- OUTSIDE RECORDS SUMMARY | 2020-12-22 13:34 | XMS REPORT | Clinical Summary ---
Author Author [facility] Organization [facility] Address Unknown Phone Unavailable Care Team Providers Care Loan Supervisor Name Role Phone Self, Garfield OLVERA PCP Riley Hopson MD 3 Gino Pandya APRN-IMAGERY ANALYST 7 Source Comments Some departments are not documenting in the electronic medical record. If you d o not see the information that you expected, contact Release of Information in [facility] [employer] Information Management department at [phone] for further assistan ce in locating additional records.[facility] Allergies No Known Active Allergies Medications [...] VASCEPA 1 gram capsule TAKE 2 0 02 CAPSULES BY 0 MOUTH TWICE DAILY [...] mg of acetaminophen in 24 hours. Active sertraline (ZOLOFT) 100 Take one 180 tablet 0 mg tablet tablet by 1 mouth twice daily. Active warfarin (COUMADIN) 1 mg Take two 120 tablet 0 0 tablet tablets by 1 mouth daily. Active spironolactone Take one 180 tablet 1 (ALDACTONE) 100 mg tablet by 1 tabletIndications: Acute mouth twice on chronic heart failure daily. Take with preserved ejection with food. fraction (HCC), Aortic valve prosthesis present Active HYDROcodone/acetaminophen Take 1 tablet 0 11/23 (NORCO) 5/325 mg tablet by mouth 1 every 4-6 hours as needed Active amoxicillin (AMOXIL) 500 Take 500 mg 0 mg capsule by mouth every 8 hours. Active bumetanide (BUMEX) 1 mg Take three 360 tablet 1 tabletIndications: Acute tablets by 1 on chronic heart failure mouth twice with preserved ejection daily. fraction (HCC), Aortic valve prosthesis present Active digoxin (LANOXIN) 125 mcg Take one 45 tablet 0 (0.125 mg) tablet tablet by 1 mouth every 48 hours. 12/04/2020 Discontinued (Reorder) sertraline (ZOLOFT) 100 Take 100 mg 0 mg tablet by mouth daily. 12/01/2020 Discontinued (Removed from P [facility] Med List) omeprazole DR (PRILOSEC) Take 40 mg by 0 40 mg capsule mouth twice daily. 12/04/2020 Discontinued (Reorder) warfarin (COUMADIN) 1 mg Take four 120 tablet 0 0 tablet tablets by 1 mouth daily to equal 4mg dose. 11/30/2020 Discontinued (Removed from P TA Med List) cefdinir (OMNICEF) 300 mg Take 1 0 /2 capsuleIndications: Acute capsule by 1 on chronic [...] 25 mg by 0 tablet mouth daily. 12/22/2020 Discontinued bumetanide (BUMEX) 1 mg Take five 360 tablet 1 tabletIndications: Acute tablets by 1 on chronic heart failure mouth twice with preserved ejection daily. fraction (HCC), Aortic valve prosthesis present 12/12/2020 Discontinued spironolactone Take one 90 tablet [...] tablet by 1 mouth every 48 hours. 12/22/2020 Discontinued (Per Provider) digoxin (LANOXIN) 125 mcg Take 62.5 mcg 90 tablet 3 (0.125 mg) tablet (1/2 tab) 1 alternating with 125 mcg (1 tab) daily Status Hospital, Clinic, or Ordered Dose Route Frequency Start End Date Other Facility Date Administered Medication Ended bumetanide (0-40 kg) IVP 2 mg IV ONCE 11/22/19 2 mg 21 1 Active Problems Problem Noted Date Acute on chronic diastolic (congestive) heart failure 12/10/2020 RVF (right ventricular failure) 11/30/2020 Hyponatremia 11/30/2020 Acute on chronic heart [...] with 9 hours, which indicates active bleeding. Eliot gasca received emergent mesenteric angiogram with coiling of [...] Encounters Care Team Description Date Type Specialty Blanche Padilla RN 12/22/2020 Telephone Cardiology Blanche Padilla RN Other (Digoxin dose change per provider 12/21/2020) 12/22/2020 Telephone Cardiology Jolie Steel BSN Anticoagulation (INR 3.4) 12/22/2020 Anticoagulation Cardiology Kathryn Barbosa MA Labs Only 12/22/2020 Documentation Cardiology Caitlin Sparks Resource Information 12/21/2020 Telephone Cardiology Josi Purvis BSN Lab Request (CBC 1 week) 12/21/2020 Telephone Cardiology Basilia Gaitan APRN-NP Rohr, Aaron M, MD Cirrhosis of liver with ascites, unspeci fied hepatic cirrhosis type (HCC) 12/20/2020 Hospital Radiology Encounter Basilia Gaitan APRN-NP Arrived 12/20/2020 Hospital Lab Encounter Mumtaz, Gino T, MEETING SPECIALIST-IMAGERY ANALYST Chronic heart failure with preserved eje ction fraction (HCC) (Primary Dx); Severe tricuspid regurgitation; Non-ischemic cardiomyopathy (HCC); Cirrhosis of liver with ascites, unspecified hepatic cirrhosis type (HCC); Goals of care, counseling/discussion; RVF (right ventricular failure) (HCC) 12/20/2020 Office Visit Palliative Care Basilia Gaitan APRN-NP Heart Failure (1 week follow up); Follow Up 12/20/2020 Office Visit Cardiology Sherin Mata BSN Order Follow Up 12/20/2020 Documentation Cardiology Summer Du APRN-NP Other ascites (Primary Dx) 12/20/2020 Orders Only Radiology Sherin Mata BSN Anticoagulation (INR Goal change to 1.5- 2.0) 12/20/2020 Anticoagulation Cardiology 12/20/2020 Susan Cha RN Anticoagulation (INR 4.7) 12/18/2020 Anticoagulation Cardiology Susan Palomino RN Erroneous encounter-disregard 12/18/2020 Anticoagulation Cardiology Susan Palomino RN Medication Question About Anticoagulatio n Therapy 12/18/2020 Telephone Cardiology Arlene Rush RN Anticoagulation (INR 3.3 ) 12/14/2020 Anticoagulation Cardiology Beckie [facility] Labs Only (INR) 12/14/2020 Documentation Cardiology Susan Palomino, CHRYSTAL Records Request 12/14/2020 Documentation Cardiology Rosa Rojas RN DME Order (Abdominal Binder) 12/13/2020 Telephone Cardiology Basilia Gaitan APRN-NP Post-hospital Follow Up 12/12/2020 Office Visit Cardiology 12/12/2020 Helen Fajardo RN Follow Up (Patient INR Goal 12/12/2020) [...] Purvis BSN Medication Follow-up 12/08/2020 Telephone Cardiology Allison Marti MD Goff, Ashley M, MEETING SPECIALIST-IMAGERY ANALYST Other cirrhosis of liver (HCC) (Primary Dx) 12/07/2020 Office Visit Transplant Surgery 12/07/2020 Travel Kathryn Barbosa MA Labs Only 12/06/2020 Documentation Cardiology Christelle Robbins RN Anticoagulation (INR 1.7) 12/06/2020 Anticoagulation Cardiology Mariely Chan LPN Post-hospital Follow Up (72 hour post ho spital follow up call) 12/05/2020 Telephone Cardiology Wisam Valencia MD 12/01/2020 Documentation Oncology Maggi Atkinson MD Miller, MD Ariel Salinas, MD Rajesh Lambert, Diya Johnson MD Acute on chronic heart failure (HCC) 11/29/2020 Hospital - Encounter 12/04/2020 Basilia Gaitan, MEETING SPECIALIST-IMAGERY ANALYST Follow Up (1 week HF f/u, labs drawn owen or to OV today, abdominal bloating, constipation) 11/29/2020 Office Visit Cardiology Basilia Gaitan, MEETING SPECIALIST-IMAGERY ANALYST 11/29/2020 Hospital Lab Encounter 11/29/2020 Travel Yesica [...] RN Anticoagulation (INR 2.3) 11/23/2020 Anticoagulation Cardiology Beckie [facility] Labs Only (INR) 11/23/2020 Documentation Cardiology Fernie Camargo LPN Anticoagulation (Pt accidently took extr a Warfarin, see note) 11/23/2020 Telephone Cardiology Basilia Gaitan APRN-IMAGERY ANALYST Post-hospital Follow Up; Heart Failure 11/21/2020 Office [...] hematuria (Primary Dx) 11/09/2020 Orders Only Urology Allison Marti MD Appointment Request 11/08/2020 Telephone Transplant Surgery Derrick Meza MD Barbaryan, Aram, MD Tripathi, Alok K, MD Beasley, Jeffrey L, Nontraumatic rectus hematoma 11/04/2020 Hospital - Encounter 11/15/2020 11/04/2020 Travel Josi Purvis BSN Anticoagulation (INR 2.4) 11/02/2020 Anticoagulation Cardiology Fernie Camargo LPN Follow-up Phone Call 10/31/2020 Telephone Cardiology Josi Purvis BSN Anticoagulation (INR 1.6) 10/30/2020 Anticoagulation Cardiology Kathryn Barbosa, MALIK Labs Only 10/30/2020 Documentation Cardiology Allison Marti MD Iron deficiency anemia due to chronic [...] (COVID result) 10/17/2020 Documentation Cardiology Nithya Madison APRN-IMAGERY ANALYST Follow Up 10/12/2020 Office Visit Cardiology Santos [...] Christelle Robbins RN 10/06/2020 Orders Only Cardiology Allison Marti MD Other 10/05/2020 Telephone Transplant Surgery Allison Marti MD Other 10/03/2020 Telephone Transplant Surgery Wisam Valencia MD General Question; Swelling 10/03/2020 Telephone Oncology Fernie Camargo LPN Worsening Symptoms; Other (Symptoms impr oving see note) 09/27/2020 Telephone Cardiology Wisam Valencia MD Iron deficiency anemia, unspecified iron deficiency anemia type (Primary Dx); Cirrhosis of liver with ascites, unspecified hepatic cirrhosis type (HCC) 09/21/2020 Office Visit Oncology Telehealth from Last 3 Months Immunizations Name Administration Dates Next Due Flu Vaccine Quadrivalent 05/25/2019 Recombinant =>18 YO PF Pneumococcal Vaccine 03/05/2018 (23-Angelique Adult) Pneumococcal 11/21/2017 Vaccine(13-Angelique Peds/immunocompromised adult) Surgical History Surgery Date Site/Laterality Comments AORTIC VALVE REPLACEMENT 05/22/2009 - mechanical 06/21/2009 UPPER GASTROINTESTINAL 06/06/2020 N/A ESOPHAG OGASTRODUODENOSCOPY WITH BIOPSY - FLEXIBLE ENDOSCOPY performed by Leonidas Hernández MD at [facility] ENDO COLONOSCOPY 06/06/2020 N/A COLONOSCOPY LAWSON GNOSTIC WITH SPECIMEN COLLECTION BY BRUSHING/ WASHING - FLEXIBLE performed by Bao Hernández MD at [facility] ENDO UPPER GASTROINTESTINAL 10/21/2020 N/A ESOPHAG OGASTRODUODENOSCOPY WITH SPECIMEN ENDOSCOPY - 10/22/2020 COLLECTION BY BRUSH ING/ WASHING performed by Cosmo Gomez MD at [facility] ENDO SIGMOIDOSCOPY 10/21/2020 N/A SIGMOIDOSCOPY W ITH CONTROL OF BLEEDING - FLEXIBLE - 10/22/2020 performed by Cosmo Gomez MD at [facility] ENDO SIGMOIDOSCOPY 10/21/2020 SIGMOIDOSCOPY WITH DIRECTED SUBMUCOSAL INJECTION - - 10/22/2020 FLEXIBLE performed by Cosmo Pastor MD at [facility] ENDO Medical History Medical History Date Comments [...] at Date Recorded Female 06/01/2020 1:44 PM [employer] Date Recorded COVID-19 Exposure Response 12/20/2020 11:28 AM CDT In the last month, have you been in contact with No / Unsure someone who was confirmed or suspected to have Coronavirus / COVID-19? Last Filed Vital Signs Reading Time Taken Comments Vital Sign 105/69 12/20/2020 1:49 PM CDT Blood Pressure 111 12/20/2020 1:49 PM CDT Pulse 36.5 C (97.7 F) 12/20/2020 1:49 PM CDT Temperature 18 12/07/2020 3:19 PM CDT Respiratory Rate 96% 12/20/2020 1:49 PM CDT Oxygen Saturation - - Inhaled Oxygen Concentration 59.4 kg (131 lb) 12/20/2020 1:49 PM CDT Weight 157.5 cm (5' 2") 12/20/2020 1:49 PM CDT Height 23.96 12/20/2020 1:49 PM CDT Body Mass Index Plan of [...] L ot Implanted Type Area Manufactur er [id number] 07/21/2021 [id number] / N/A / [id number] Device Closure 70cm 6fr Angio-Seal TERUMO Vip .035in Vascular - Sn/A MEDICAL Implanted: Qty: 1 on 11/06/2020 at [facility] [id number] 06/08/2025 [id number] / . / [id number] Coil Embolization 14cm 3mm .018in COOK Noim 14.9 Loop Soft - S. MEDICAL Implanted: Qty: 1 on 11/06/2020 at [facility] [id number] 06/08/2025 [id number] / . / [id number] Coil Embolization 14cm 3mm .018in COOK Nomi 14.9 Loop Soft - S. MEDICAL Implanted: Qty: 1 on 11/06/2020 at [facility] [id number] 06/08/2025 [id number] / . / [id number] Coil Embolization 14cm 3mm .018in COOK Nomi 14.9 Loop Soft - S. MEDICAL Implanted: Qty: 1 on 11/06/2020 at [facility] [id number] 06/08/2025 [id number] / . / [id number] Coil Embolization 14cm 3mm .018in COOK Nomi 14.9 Loop Soft - S. MEDICAL Implanted: Qty: 1 on 11/06/2020 at [facility] [id number] 09/02/2028 [id number] / . / [id number] Coil Embolization 10cm .02in 4mm PENUMBRA Penumbra Coil 400 [employer] Implanted: Qty: 1 on 11/06/2020 at [facility] [id number] 06/08/2025 [id number] / . / [id number] Coil Embolization 14cm 3mm .018in COOK Nomi 14.9 Loop Soft - S. MEDICAL Implanted: Qty: 1 on 11/06/2020 at [facility] [id number] 06/08/2025 [id number] / . / [id number] Coil Embolization 14cm 3mm .018in COOK Nomi 14.9 Loop Soft - S. MEDICAL Implanted: Qty: 1 on 11/06/2020 at [facility] [id number] 06/08/2025 [id number] / . / [id number] Coil Embolization 14cm 3mm .018in COOK Nomi 14.9 Loop Soft - S. MEDICAL Implanted: Qty: 1 on 11/06/2020 at [facility] [id number] 06/08/2025 [id number] / . / [id number] Coil Embolization 14cm 3mm .018in COOK Nomi 14.9 Loop Soft - S. MEDICAL Implanted: Qty: 1 on 11/06/2020 at [facility] [id number] 07/03/2028 [id number] / . / [id number] Coil [place]ley Pod J 30cm - S. PENUMBRA Implanted: Qty: 1 on 11/06/2020 at [facility] [id number] 02/24/2027 [id number] / . / [id number] Coil [place]ley Pod J 45cm - S. PENUMBRA Implanted: Qty: 1 on 11/06/2020 at [facility] [id number] 06/08/2025 [id number] / . / [id number] Coil Embolization 14cm 3mm .018in COOK Nomi 14.9 Loop Soft - S. MEDICAL Implanted: Qty: 1 on 11/06/2020 at [facility] Procedures Comments Procedure Name Priority Date/Time Associated Diag nosis PROTIME INR (PT) Routine 12/22/2020 Chronic heart failure with preserved ejection fraction (HCC) Severe tricuspid regurgitation RVF (right ventricular failure) (HCC) Paroxysmal atrial fibrillation (HCC) Cirrhosis of liver with ascites, unspecified hepatic cirrhosis type (HCC) Urinary tract infection without hematuria, site unspecified Chronic anticoagulation BASIC METABOLIC PANEL Routine 12/22/2020 Chronic heart failure with preserved ejection fraction (HCC) Severe tricuspid regurgitation RVF (right ventricular failure) (HCC) Paroxysmal atrial fibrillation (HCC) Cirrhosis of liver with ascites, unspecified hepatic cirrhosis type (HCC) Urinary tract infection without hematuria, site unspecified Chronic anticoagulation CBC Routine 12/22/2020 RVF (right vent ricular failure) (HCC) Chronic heart failure with preserved ejection fraction (HCC) HC DIGOXIN Routine 12/20/2020 Acute on chroni c right 12:57 PM CDT heart failure (HCC) Acute on chronic diastolic (congestive) heart failure (HCC) HC CBC,AUTOMATED Routine 12/20/2020 Chronic antic oagulation 12:57 PM CDT HC AMMONIA Routine 12/20/2020 Cirrhosis of li minal with 12:57 PM CDT ascites, unspecified hepatic cirrhosis type (HCC) HC PT(INR) Routine 12/20/2020 Paroxysmal atri al 12:57 PM CDT fibrillation (HCC) HC COMPREHENSIVE Routine 12/20/2020 Chronic heart failure METABOLIC PANEL 12:57 PM CDT with preserved ejec tion fraction (HCC) HOME INR Routine 12/18/2020 PROTIME INR (PT) Routine 12/14/2020 Chronic antic oagulation HC CHEM 8 PANEL, POC 12/12/2020 3:25 PM CDT DIGOXIN LEVEL STAT 12/11/2020 Severe tricuspi d regurgitation Paroxysmal atrial fibrillation (HCC) Non-ischemic cardiomyopathy (HCC) History of endocarditis High output congestive heart failure (HCC) PROTIME INR (PT) Routine 12/08/2020 Paroxysmal at rial fibrillation (HCC) HOME INR Routine 12/06/2020 PROTIME INR (PT) Routine 12/06/2020 Paroxysmal at rial fibrillation (HCC) HC MAGNESIUM Add on 12/04/2020 3:52 AM [...] (HCC) HC CBC,AUTOMATED Routine 11/21/2020 Acute on tailer out shant[place] heart 9:39 AM CDT failure with [...] CDT CBC Routine 11/08/2020 9:28 PM CDT VA BLOOD SMEAR PERIPHERAL Routine 11/08/2020 INTERP PHYS [...] fraction (HCC) ECG-SCAN 10/12/2020 12:00 AM CDT from Last 3 Months Results * PROTIME INR (PT) (12/22/2020) Only the most recent of 38 results within the time period is included. INR 3.4 (H) 0.8 - 1.4 [facility] Protime 34 (H) 12.2 - 14.7 [facility] Specimen Blood - Blood Narrative Performed At This result has an attachment that is n ot available. Performing Organization Address City/State/ZIP Code P shane Number [facility] [address] [place] [address] * CBC (12/22/2020) Only the most recent of 23 results within the time period is included. White Blood 23.9 (H) 4.3 - 11.0 [facility] Cells RBC 2.85 (L) 3.80 - 5.11 [facility] Hemoglobin 8.3 (L) 11.5 - 16.0 [facility] Hematocrit 25 (L) 35 - 52 [facility] MCV 88 [facility] MCH 29 [facility] MCHC 33 [facility] Platelet Count 398 [facility] MPV 9.0 [facility] RDW 17.8 (H) 10.0 - 14.5 [facility] Specimen Blood - Blood Performing Organization Address City/[facility]/ZIP Code P shane Number [facility] [address] [place] [address] * BASIC METABOLIC PANEL (12/22/2020) Only the most recent of 9 results within the time period is included. Sodium 122 (<) 135 - 145 [facility] Potassium 4.6 [facility] Chloride 87 (L) 98 - 107 [facility] CO2 23 [facility] Blood Urea 28 (H) 7 - 18 [facility] Nitrogen Creatinine 1.25 (H) 7 - 18 [facility] Glucose 139 (H) 70 - 105 [facility] Calcium 8.2 (L) 8.5 - 10.1 [facility] eGFR Non 44 [facility] eGFR [facility] Anion Gap 12 [facility] BUN/Creatinine 22 [facility] Ratio Specimen Blood - Blood Performing Organization Address [facility]/ZIP Code P shane Number [facility] [address] [place] [address] * AMMONIA (12/20/2020 12:57 PM CDT) Ammonia 32 9 - 35 MCMOL/L [facility] Specimen Blood Performing Organization Address City/[facility]/ZIP [facility] P shane Number [facility] [address] [place] [address] * DIGOXIN LEVEL (12/20/2020 12:57 PM CDT) Only the most recent of 4 results within the time period is included. Digoxin 1.5 (H) 0.5 - 1.0 NG/ML [facility] Specimen Blood Performing Organization Address City/[facility]/ZIP Code P shane Number [facility] [address] [place] [address] * COMPREHENSIVE METABOLIC PANEL (12/20/2020 12:57 PM CDT) Only the most recent of 25 results within the time period is included. Sodium 125 (L) 137 - 147 MMOL/L [facility] Potassium 5.3 (H) 3.5 - 5.1 MMOL/L [facility] Chloride 90 (L) 98 - 110 MMOL/L [facility] Glucose 77 70 - 100 MG/DL [facility] Blood Urea 23 7 - 25 MG/DL [facility] Nitrogen Creatinine 1.20 (H) 0.4 - 1.00 MG/DL [facility] Calcium 9.0 8.5 - 10.6 MG/DL [facility] Total Protein 7.0 6.0 - 8.0 G/DL [facility] Total Bilirubin 0.9 0.3 - 1.2 MG/DL [facility] Albumin 3.0 (L) 3.5 - 5.0 G/DL [facility] Alk Phosphatase 136 (H) 25 - 110 U/L [facility] AST (SGOT) 37 7 - 40 U/L [facility] CO2 25 21 - 30 MMOL/L [facility] ALT (SGPT) 26 7 - 56 U/L [facility] Anion Gap 10 3 - 12 [facility] eGFR Non 46 (L) >60 mL/min [facility] Comment: [facility] The eGFR is not validated f or use in drug dosing adjustments. Continue to use estimated creatinine clearance per dosing reference text. Please contact the Clinical Pharmacist for questions. eGFR 56 (L) >60 mL/min [facility] Comment: The eGFR is not validated for use in drug dosing adjustments. Continue to use estimated creatinine clearance per dosing reference text. Please contact the Clinical Pharmacist for questions. Specimen Blood Performing Organization Address City/State/ZIP Code P shane Number MAIN LAB [address] [place] [address] * HOME INR (12/18/2020) Only the most recent of 4 results within the time period is included. Pathologist [facility] INR Home 4.7Comment: Result from CareEverywhere Specimen * POC BASIC METABOLIC PANEL (BMP) (12/12/2020 [...] MAIN LAB Calcium-POC Specimen Performing Organization Address City/[facility]/ZIP [facility] P shane Number [facility] [address] [place] [address] * CBC AND DIFF (12/04/2020 3:52 AM [...] Basophil Count Specimen Blood Performing Organization Address City/[facility]/ZIP Code P shane Number [facility] [address] [place] [address] * MAGNESIUM (12/04/2020 3:52 AM CDT) Only the most recent of 9 results within the time period is included. Magnesium 2.0 1.6 - 2.6 mg/dL [facility] Specimen Performing Organization Address City/State/ZIP Code P shane Number [facility] [address] [place] [address] * IR PARACENTESIS THERAPEUTIC (12/02/2020 9:46 AM [...] [facility] RAD RE SULTS CLINICAL INDICATION: Ascites DESIGN SPECIALIST: Ramo Purcell M.D. TECHNIQUE: Transverse real time images were obtained through the abdomen. The risks and benefits of this procedur e were discussed and informed written consent was obtained prior to performin g the procedure. The abdomen was then prepped and draped in usual sterile fashion. Limited ultrasound of the abdomen was performed . Under ultrasound guidance, a 5 [place]egalese centesis needle was advanced into the p [...] CDT Therapeutic ultrasound-guided paracentesis CLINICAL INDICATION: Ascites DESIGN SPECIALIST: Ramo Delozier, M.D. TECHNIQUE: Transverse real time images were obtained through the abdomen. The risks and benefits of this procedure were discussed and informed written consent was obtained prior to performing the procedure. The abdomen was then prepped and draped in usual sterile fashion. Limited ultrasound of the abdomen was performed. Under ultrasound guidance, a 5 [place]eg[place]e centesis needle was advanced into the peritoneal [...] = LAB AV index 0.28 OTHER OUTSIDE ([place]) LAB LVOT diameter 2.0 cm OTHER OUTSIDE LAB LVOT area 3.14 cm2 OTHER OUTSIDE LAB LVOT peak farhana 0.7 m/s OTHER OUTSIDE LAB LVOT stroke 48.07 cm3 OTHER OUTSIDE volume LAB and a peak 22 mmHg OTHER OUTSIDE gradient of LAB Vn Nyquist 0.29 m/s OTHER OUTSIDE LAB Mr max farhana 4.4 m/s OTHER OUTSIDE LAB MR PISSussy EROA 0.20 cm2 OTHER OUTSIDE LAB TV [...] on 11/30/2020 7:49 AM. Performing Organization Address City/[facility]/ZIP Code P shane Number RAD RESULTS * BNP (B-TYPE NATRIURETIC PEPTI) (11/29/2020 5:22 PM CDT) Only the most recent of 4 results within the time period is included. Pathologist [facility] B Type 396.0 (H) 0 - 100 PG/ML [facility] Natriuretic Peptide Specimen Blood Performing Organization Address City/[facility]/ZIP Code P shane Number MAIN LAB [address] [place] [address] * HEMOGLOBIN A1C (11/29/2020 5:22 PM CDT) Pathologist [facility] Hemoglobin A1C 4.8 4.0 - 6.0 % [facility] Comment: The ADA recommends that most patients with type 1 and type 2 diabetes maintain an A1c level <7%. Specimen Blood Performing Organization Address [facility] P shane Number MAIN LAB [address] [place] [address] * LIPID PROFILE (11/29/2020 5:22 PM CDT) Cholesterol 76 <200 MG/DL [facility] Triglycerides 77 <150 MG/DL [facility] HDL 25 (L) >40 MG/DL [facility] LDL 43 <100 mg/dL [facility] VLDL 15 MG/DL [facility] Non HDL 51 MG/DL [facility] Cholesterol Comment: Calculated non-HDL Cholesterol (non-HDL-C) indirectly measures LDL-C, Lp(a), IDL-C, and VLDL-C. It is a surrogate marker for Apoprotein B. Goal should be less than 130 mg/dL. Specimen Blood Performing Organization Address City/State/ZIP Code P shane Number [facility] [address] [place] [address] * COVID-19 (SARS-COV-2) PCR (11/29/2020 4:20 PM CDT) Only the most recent of 4 results within the time period is included. Pathologist [facility] COVID-19 FLOCKED SWAB [facility] (SARS-CoV-2) NASOPHARYNGEAL PCR Source COVID-19 NOT DETECTED DN-NOT DETECTED [facility] (SARS-CoV-2) Comment: PCR This assay is designed [...] performance characteristics have been verified by the [facility]. Fact sheet for providers: https://www.fda.gov/media/9380 85/download Fact sheet for patients: https://www.fda.gov/media/6876 87/download Specimen Flocked Swab - Nasopharyngeal Performing Organization Address City/State/ZIP [facility] P shane Number [facility] [address] [place] [address] * IRON + BINDING CAPACITY + %SAT+ FERRITIN (11/29/2020 10:40 AM CDT) Only the most recent of 2 results within the time period is included. Iron 23 (L) 50 - 160 MCG/DL [facility] Iron 331 270 - 380 MCG/DL [facility] Binding-TIBC % Saturation 7 (L) 28 - 42 % [facility] Ferritin 112 10 - 200 NG/ML [facility] Specimen Blood Performing Organization Address City/State/ZIP Code P shane Number MAIN LAB [address] [place] [address] * PHOSPHORUS (11/29/2020 10:40 AM CDT) Only the most recent of 13 results within the time period is included. Phosphorus 2.7 2.0 - 4.5 MG/DL [facility] Specimen Performing Organization Address City/[facility] Code P shane Number [facility] [address] [place] [address] * TELEMETRY STRIPS-SCAN (11/29/2020 12:00 AM CDT) [...] Ordered by an unspecified provider. * BNP POC ER (11/21/2020 8:32 AM CDT) BNP POC 806.0 (H) 0 - 100 PG/ML [facility] Specimen Performing Organization Address City/State/ZIP Code P shane Number [facility] [address] [place] [address] * POC PT/INR (11/21/2020 8:24 AM CDT) Only the most recent of 2 results within the time period is included. INR POC 1.7 (H) 0.8 - 1.2 [facility] Specimen Performing Organization Address City/[facility]/ZIP Code P shane Number MAIN LAB [address] [place] [address] * CULTURE-URINE W/SENSITIVITY (11/14/2020 5:35 PM CDT) Battery Name URINE CULTURE [facility] Report Status FINAL 11/17/2020 [facility] Specimen URINE INDWELLING CATHETER [facility] Description Special NONE [facility] Requests Culture >100,000 CFU/ml MAIN [...] <=1: Susceptible Enterococcus faecalis Performing Organization Address City/[facility]/ZIP Code P shane Number MAIN LAB [address] [place] [address] * HEMOGLOBIN & HEMATOCRIT (11/14/2020 12:27 AM CDT) Only the most recent of 3 results within the time period is included. Hemoglobin 8.0 (L) 12.0 - 15.0 GM/DL MAIN LAB Hematocrit 23.7 (L) 36 - 45 % MAIN LAB Specimen Blood Performing Organization Address City/State/ZIP Code P shane Number MAIN LAB [address] [place] [address] * HAPTOGLOBIN (11/09/2020 9:45 AM CDT) Haptoglobin <30 16 - 200 MG/DL MAIN LAB Specimen Blood Performing Organization Address City/[facility]/ZIP Code P shane Number MAIN LAB [address] [place] [address] * LDH-LACTATE DEHYDROGENASE (11/09/2020 5:43 AM CDT) Lactate 241 (H) 100 - 210 U/L MAIN LAB Dehydrogenase Specimen Performing Organization Address City/[facility]/ZIP Code P shane Number [facility] [address] [place] [address] * BILIRUBIN, DIRECT (11/09/2020 5:43 AM CDT) Bilirubin, 0.4 (H) <0.4 MG/DL MAIN LAB Direct Specimen Performing Organization Address [facility] Code P shane Number [facility] [address] [place] [address] * PERIPHERAL SMEAR (11/08/2020 5:46 PM CDT) Peripheral NO QUALITATIVE MORPHOLOGIC MAIN LA B Smear ABNORMALITIES OF DIAGNOSTIC SIGNIFICANCE. Pathologist INTERPRETED BY [facility] Signature M.D. By the PATH SIGNATURE ABOVE, I attest that I have personally formulated the final interpretation expressed in this report and that the above diagnosis is based upon my examination of the slides and/or other material indicated in this report. Specimen Blood Performing Organization Address [facility]/ZIP Code P shane Number MAIN LAB [address] [place] [address] * FIBRINOGEN (11/08/2020 5:46 PM CDT) Fibrinogen 347 200 - 400 MG/DL MAIN LAB Specimen Blood Performing Organization Address [facility] P shane Number MAIN LAB [address] [place] [address] * CT ABD/PELV WO CONTRAST (11/08/2020 5:28 [...] Transfusion RX Specimen Urine Performing Organization Address [facility]/ZIP Code P shane Number [facility] [address] [place] [phone] * URINALYSIS, MICROSCOPIC (11/06/2020 9:05 AM CDT) WBCs,UA PACKED 0 - 2 /HPF [facility] RBCs,UA PACKED 0 - 3 /HPF [facility] Specimen Urine - Urine Performing Organization Address [facility] P shane Number [facility] [address] [place] [phone] * URINALYSIS DIPSTICK (11/06/2020 9:05 AM CDT) Color,UA RED [facility] Turbidity,UA CLEAR CLEAR-CLEAR [facility] Specific 1.037 (H) 1.003 - 1.035 [facility] [place]-Urine pH,UA 6.0 5.0 - 8.0 [facility] MAIN [...] Specimen Urine - Urine Performing Organization Address [facility] P shane Number [facility] [address] [place] [phone] * POC GLUCOSE (11/06/2020 7:43 AM CDT) Only the most recent of 2 results within the time period is included. Glucose, POC 158 (H) 70 - 100 MG/DL [facility] Specimen Performing Organization Address [facility] P shane Number [facility] [address] [place] [address] * IR MESENTERIC ARTERIOGRAM DIAGNOSTIC (11/06/2020 5:50 [...] The needle was exchanged for a 4 Senegalese transitional catheter. The inner dilator and the 0.018 wire were removed and a 0.035 Bentson wire was advanced into the artery. The transitional catheter was exchanged for 5 Senegalese vascular sheath, attached to a heparinized pressurized [...] needle was exchan ged for a 5 Senegalese transitional catheter. The inner dilator and the 0.018 wire we re removed and a 0.035 Bentson wire was advanced into the artery. Through the m icrocatheter a Bentson wire was advanced into the abdominal aorta. The microcath eter was withdrawn and exchanged for a 6 Senegalese sheath. The sheath was attached to a continuous heparinized saline infusion. A 5 Senegalese Omni Flush catheter was adva nced to [...] catheter was exchanged f or a 5 Senegalese JAYLIN 1 catheter over a Bentson wire. The JAYLIN 1 catheter was adv anced into the left inferior epigastric artery. Digital subtraction angiography was performed which showed areas of active extravasation from several small branch vessels. Next, a 2.8 Senegalese microcatheter was advanced in a coaxial fashion [...] The needle was exchanged for a 5 Senegalese transitional catheter. The inner dilator and the 0.018 wire were removed and a 0.035 Bentson wire was advanced into the artery. Through the microcatheter a Bentson wire was advanced into the abdominal aorta. The microcatheter was withdrawn and exchanged for a 6 Senegalese sheath. The sheath was attached to a continuous heparinized saline infusion. A 5 Senegalese Omni Flush catheter was advanced to the level of the aortic bifurcation. Digital subtraction pelvic arteriogram was performed. This demonstrated patency of the distal abdominal aorta, bilateral common, internal and external iliac arteries. Small foci of active extravasation are seen in the left lower quadrant. Next, a Glidewire and JB1 catheter were used to select the left external iliac artery. The 5 telugu catheter was advanced over the wire and a hand injected arteriogram was performed. This demonstrate patency of the left external iliac artery and common iliac artery. There is active extravasation arising from left inferior epigastric artery branches. The Omni flush catheter was exchanged for a 5 Senegalese JAYLIN 1 catheter over a Bentson wire. The JAYLIN 1 catheter was advanced into the left inferior epigastric artery. Digital subtraction angiography was performed which showed areas of active extravasation from several small branch vessels. Next, a 2.8 Senegalese microcatheter was advanced in a coaxial fashion [...] of right superfic ial femoral arteriovenous fistula. IBlair M.D, the attending radiologist, was present for [...] REFERENCE LAB Specimen Blood Performing Organization Address City/[facility] P shane Number REFERENCE LAB REFERENCE LAB See results for address. * PTT (APTT) (11/06/2020 3:49 AM CDT) Only the most recent of 7 results within the time period is included. APTT 29.6 24.0 - 36.5 SEC [facility] Specimen Blood Performing Organization Address [facility] P shane Number [facility] [address] [place] [address] * TRANSFUSION REACTION EVALUATION (11/06/2020 3:28 AM [...] underlying diseaseComment: of Reaction Report Available in [facility] Pathology INTERPRETED BY CHIKI HUYNH [...] is n ot available. Performing Organization Address [facility] P shane Number [facility] [address] [place] [address] * POC LACTATE (11/06/2020 3:12 AM CDT) LACTIC ACID POC 4.0 (HH) 0.5 - 2.0 MMOL/L [facility] Specimen Performing Organization Address [facility] P shane Number [facility] [address] [place] [address] * LACTIC ACID(LACTATE) (11/05/2020 5:46 AM CDT) Only the most recent of 3 results within the time period is included. Lactic Acid 0.8 0.5 - 2.0 MMOL/L [facility] Specimen Blood Performing Organization Address [facility] P shane Number [facility] [address] [place] [phone] * FREE T4-FREE THYROXINE (11/04/2020 8:40 PM CDT) T4-Free 1.1 0.6 - 1.6 NG/DL [facility] Specimen Performing Organization Address City/State/ZIP Code P shane Number [facility] [address] [place] [address] * TSH WITH FREE T4 REFLEX (11/04/2020 8:40 PM CDT) TSH 10.59 (H) 0.35 - 5.00 MCU/ML [facility] Specimen Blood Performing Organization Address City/[facility]/ZIP Code P shane Number [facility] [address] [place] [address] * TYPE & CROSSMATCH (11/04/2020 8:40 PM CDT) Only the most recent of 2 results within the time period is included. Units Ordered 7 [facility] Crossmatch 11/07/2020,2359 [facility] Expires Record Check FOUND [facility] ABO/RH(D) O POS [facility] Antibody Screen NEG [facility] Electronic YES [facility] Crossmatch Unit Number [id number] [facility] Blood Component RBC,ADSOL,LEUKO REDUCED [facility] Type Unit Division 00 [facility] Status OF Unit TRANSFUSED [facility] ISSUE DATE TIME [id number] [facility] PRODUCT CODE [id number] [facility] BLOOD TYPE O POS [facility] CODING STATUS 5100 [facility] BLOOD [id number] [facility] EXPIRATION DATE Transfusion OK TO TRANSFUSE [facility] Status Crossmatch COMPATIBLE,ELECTRONIC [facility] Result Unit Number [id number] [facility] Blood Component RBC,ADSOL,LEUKO REDUCED [facility] Type Unit Division 00 [facility] Status OF Unit TRANSFUSED [facility] ISSUE DATE TIME [id number] [facility] PRODUCT CODE [id number] [facility] BLOOD TYPE O POS [facility] CODING STATUS 5100 [facility] BLOOD [id number] [facility] EXPIRATION DATE Transfusion OK TO TRANSFUSE [facility] Status Crossmatch COMPATIBLE,ELECTRONIC [facility] Result Unit Number [id number] [facility] Blood Component RBC,ADSOL,LEUKO REDUCED MAIN LAB Type Unit Division 00 [facility] Status OF Unit TRANSFUSED [facility] ISSUE DATE TIME [facility] PRODUCT CODE [id number] [facility] BLOOD TYPE O POS [facility] CODING STATUS 5100 [facility] BLOOD [id number] [facility] EXPIRATION DATE Transfusion OK TO TRANSFUSE [facility] Status Crossmatch COMPATIBLE,ELECTRONIC [facility] Result Unit Number [id number] [facility] Blood Component RBC,ADSOL,LEUKO REDUCED,1ST [facility] AB Type CONT. Unit Division 00 [facility] Status OF Unit TRANSFUSED [facility] ISSUE DATE TIME [facility] PRODUCT CODE [id number] [facility] BLOOD TYPE O POS [facility] CODING STATUS 5100 [facility] BLOOD [id number] [facility] EXPIRATION DATE Transfusion OK TO TRANSFUSE [facility] Status Crossmatch COMPATIBLE,ELECTRONIC [facility] Result Unit Number [id number] [facility] Blood Component RBC,ADSOL,LEUKO REDUCED,1ST [facility] AB Type CONT. Unit Division 00 [facility] Status OF Unit TRANSFUSED [facility] ISSUE DATE TIME [facility] PRODUCT CODE [id number] [facility] BLOOD TYPE O POS [facility] CODING STATUS 5100 [facility] BLOOD [id number] [facility] EXPIRATION DATE Transfusion OK TO TRANSFUSE [facility] Status Crossmatch COMPATIBLE,ELECTRONIC [facility] Result Specimen Blood,Peripheral Performing Organization Address City/State/ZIP Code P shane Number MAIN LAB [address] [place] [address] * TELEMETRY STRIPS-SCAN (11/04/2020 12:00 AM CDT) [...] Code P shane Number MAIN LAB [address] [place] [address] * EGD REPORT (10/21/2020 9:59 PM CDT) Provation Patient Name: Khurram SPARKS OTHER Report Procedure Date: 10/21/2020 9:59 RESULT S PM CSN: [id number] Date of : 1960 Gender: Female Attending Physician: Cosmo Gomez MD Procedure: Upper GI endoscopy Indications: Hematochezia Providers: Cosmo Gomez MD (Doctor), Jesus Senior (Fellow), Sarah Sapp (Nurse), Omid Brooke Want Ad Clerk (Want Ad Clerk) Referring Physician: Cosmo Gomez MD Medications: Monitored [...] 6 seconds Procedure Code(s): --- Professional --- 24727, Esophagogastroduodenoscopy, flexible, transoral; diagnostic, including collection of specimen(s) by brushing or washing, when performed (separate procedure) Diagnosis Code(s): --- Professional --- K22.8, Other specified diseases of esophagus K92.1, Melena (includes Hematochezia) CPT copyright 2020 [employer]. All rights reserved. The codes documented in this report are preliminary and upon welder production line arc review may be revised to meet current [...] Procedure Date: 10/21/2020 9:34 RESULT S PM [facility]: [id number] Date of : 1960 Gender: Female Attending Physician: Cosmo Gomez MD Procedure: Flexible Sigmoidoscopy Indications: Hematochezia Providers: Cosmo Gomez MD (Doctor), Sarah Sapp (Nurse), Omid Brooke, Want Ad Clerk (Want Ad Clerk), Jesus Senior (Fellow) Referring Physician: Cosmo Gomez [...] 40 seconds Procedure Code(s): --- Professional --- 66045, Sigmoidoscopy, flexible; with control of bleeding, any method Diagnosis Code(s): --- Professional --- K55.21, Angiodysplasia of colon with hemorrhage K92.1, Melena (includes Hematochezia) CPT copyright 2020 [employer]. All rights reserved. The codes documented in this report are preliminary and upon welder production line arc review may be revised to meet current [...] Units Ordered 1 MAIN LAB Unit Number [id number] MAIN LAB Blood Component THAWED PLASMA [facility] Type Unit Division 00 MAIN LAB Status OF Unit TRANSFUSED [facility] ISSUE DATE TIME MAIN LAB PRODUCT CODE [id number] MAIN LAB BLOOD TYPE O POS MAIN LAB CODING STATUS 5100 [facility] BLOOD [id number] MAIN LAB EXPIRATION DATE Transfusion OK TO TRANSFUSE MAIN LAB Status Specimen Other (Specify) Performing Organization Address City/[facility]/ZIP Code P shane Number MAIN LAB [address] [place] [address] * TROPONIN-I (10/21/2020 9:50 AM CDT) Only the most recent of 3 results within the time period is included. Troponin-I 0.04 0.0 - 0.05 NG/ML MAIN LAB Specimen Blood Performing Organization Address City/[facility]/ZIP Code P shane Number MAIN LAB [address] [place] [address] * BLOOD TYPE CONFIRMATION - ORDER ONLY IF REQUESTED BY LAB (10/20/2020 11:54 AM CDT) ABO/RH(D) O POS MAIN LAB Specimen Bowel Contents Performing Organization Address [facility] P shane Number MAIN LAB [address] [place] [address] * BLUE TOP TUBE (10/20/2020 9:07 AM CDT) Specimen Performing Organization Address City/[facility] Code P shane Number LAB RESULTS * [...] Plan / Dates Group Medicare MEDICARE MEDICARE [id number] 1999- PART A AND Present B [place] [id number] 2020-P MEDICAID resent [facility]/HO [id number] 11/13/2020 - [place] Present HEALTH/SNF /CORRECTION [id number] Advance Directives Patient Transmitter Chief Explanation Type Date Recorded Advance 10/26/2020 12:00 [...]
--- OUTSIDE RECORDS SUMMARY | 2020-12-22 13:35 | XMS REPORT | Encounter Summary ---
Author Author [facility] Organization [facility] Address Unknown Phone Unavailable Care Team Providers Care Design Sales Consultant Name Role Phone Self, Garfield OLVERA PCP Riley Hopson MD 3 Gino Pandya APRN-LOOM TECHNICIAN 7 Reason for Visit * Reason Comments Anticoagulation INR 3.4 Encounter Details Care Team Description Date Type Department Jolie Steel BSN Anticoagulation (INR 3.4) 12/22/2020 Anticoagulation Cardiology: [facility] [address] [place] [address] 1, [address] [place] [address] Social History Date Tobacco Use Types Packs/Day Years Used Never Smoker Smokeless Tobacco: Never Used Comments Alcohol Use Standard Drinks/Week Not Currently 0 (1 standard drink = 0.6 o z pure alcohol) Sex Assigned at Date Recorded Female 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 documented as of this encounter Functional Status Date of Assessment Functional Status Response 12/20/2020 Does the patient have a hearing impairment: No 12/20/2020 Does the patient have a visual impairment: Yes 12/20/2020 Does the patient have impaired ambulation: Yes 12/20/2020 Does the patient have an activity of daily living No (ADL) impairment: 12/20/2020 Does the patient have an instrumental activity of No daily living (IADL) impairment: Date of Assessment Cognitive Status Response 12/20/2020 Does the patient have a cognitive impairment: No documented as of this encounter Plan of Treatment Not on filedocumented as of this encounter Goals Goal Patient Associated Recent Progress Patient-Stat Aut hor Goal Type Problems ed? [facility] On track (10/23/2020 Yes Sheldon, 1:06 [...] has been completed for the pat ient 12/20/2020 1:50 PM CDT PHQ-2 Depression Total Score: 2 12/07/2020 3:18 PM CDT documented as of this encounter
--- OUTSIDE RECORDS SUMMARY | 2020-12-22 13:35 | XMS REPORT | Encounter Summary ---
Author Author [facility] Organization [facility] Address Unknown Phone Unavailable Care Team Providers Care Catering Associate Name Role Phone Self, Garfield OLVERA PCP Riley Hopson MD 3 Gino Pandya APRN-TWYLA 7 Reason for Referral * Radiology Services (Routine) Referred By Contact Referred To Contact Status Reason Specialty Diagnoses / Procedures Basilia Gaitan APRN-TWYLA [address] [address] [address] [place] [address] [place] [address], [address] [place] [phone] Authorized Radiology Diagnoses Cirrhosis of liver with ascites, unspecified hepatic cirrhosis type (HCC) P rocedures IR PARACENTESIS THERAPEUTIC ID ABDOM PARACENTESIS DX/THER W/IMAGING GUIDANCE Electronically signed by Basilia Gaitan APRN-TWYLA at Reason for Visit * Radiology Services (Routine) Referred By Contact Referred To Contact Status Reason Specialty Diagnoses / Procedures Basilia Gaitan APRN-TWYLA [address] [address] [address] [place] 4000 [facility], [address] [place] [address] Authorized Radiology Diagnoses Cirrhosis of liver with ascites, unspecified hepatic cirrhosis type (HCC) P rocedures IR PARACENTESIS THERAPEUTIC ID ABDOM PARACENTESIS DX/THER W/IMAGING GUIDANCE Encounter Details Care Team Description Date Type Department Basilia Gaitan, TELESALES REPRESENTATIVE-OWNER SPA DIRECTOR 4000 [facility] [place] [address] Scout Nelson MD [address] [place] [address] Cirrhosis of liver with ascites, unspeci fied hepatic cirrhosis type (HCC) 12/20/2020 Hospital Interventional Radi ology: Encounter [facility], [address], [address] [place] [address] Social History Date Tobacco Use Types Packs/Day Years Used Never Smoker Smokeless Tobacco: Never Used Comments Alcohol Use Standard Drinks/Week Not Currently 0 (1 standard drink = 0.6 o z pure alcohol) Sex Assigned at Date Recorded Female 06/01/2020 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 IR-PARACENTESIS A paracentesis is the removal of an abnormal buildup of fluid in your abdominal cavity. This fluid buildup is called ascites and may be caused by conditions suc h as liver disease, heart failure, or cancer. During this procedure, a needle is inserted into your abdomen to drain the fluid. The fluid may then be sent to the lab for testing if medically indicated. Removal of the fluid may also relieve belly pressure and shortness of breath caused by the ascites. POST-PROCEDURE PAIN: Pain control following your procedure is a priority for both you and your Phy sicians. Some soreness or tenderness at the site is to be expected for several days. W e recommend taking over the counter analgesics to help relieve this pain. Alternative methods for pain relief include but not limited to heat or cold c ompress, relaxation techniques, rest, and changing of positions. If pain continues after 5-7 days or you have severe pain not relieved by medi cation, please contact us as directed below. POST-PROCEDURE ACTIVITY: A responsible adult must drive you home. If you receive sedation, narcotic pain medication or anesthesia for the proce dure, you should not drive or operate heavy machinery or do anything that requir es concentration for at least 24 hours after procedure completion. It is recommended that a responsible adult be with you until morning. POST-PROCEDURE SITE CARE: You will have a small bandage over the procedure site. Keep this dry. You may remove it in 24 hours. You may shower in 24 hours, after removing the bandage. A dry gauze bandage may be reapplied as necessary to protect your clothing as the site may sometimes leak for several days after the procedure. Do not submerge the procedure site for 1 week (no bathtub, swimming, hot tub, etc.) Do not use ointments, creams or powders on the puncture site. Be sure your hands are clean when touching near the site. DIET/MEDICATIONS: You may resume your previous diet after the procedure. If you receive sedation or narcotic pain medications, avoid any foods or beve rages containing alcohol for at least 24 hours after the procedure. Please see the Medication Reconciliation sheet for instructions regarding res uming your home medications. CALL THE DOCTOR IF: Bright red blood soaks the bandage. You have pain not relieved by medication. Some soreness at the site is to be expected. You have signs of infection such as: fever greater than 101F, chills, redness , warmth, swelling, drainage or pus from the puncture site. For any of the above symptoms or for problems or concerns related to the procedu re performed at the [place] Location, call [phone] Friday-Friday from 7 -5p. After-hours and weekends, please call [phone] and ask for the [facility] Cyber Forensic Specialist on-call. You or your caregiver should call [phone] for any severe symptoms such as excessive bleeding, severe dizziness, trouble breathing or loss of consciousness. documented in this encounter Medications at Time of Discharge Start Date End Date Medication Sig Dispensed Refills acetaminophen (TYLENOL Take 500 mg 0 EXTRA STRENGTH) 500 mg by mouth tablet every 4 hours as needed for Pain. Max of 4,000 mg of acetaminophen in 24 hours. amoxicillin (AMOXIL) 500 Take 500 mg 0 mg capsule by mouth every 8 hours. ascorbic acid (VITAMIN C) Take 500 mg 0 500 mg tablet by mouth daily. 12/22/2020 bumetanide (BUMEX) 1 mg Take three 360 [...] suspension daily. Shake bottle gently before using. 12/15/2020 HYDROcodone/acetaminophen Take 1 tablet 0 (NORCO) 5/325 mg tablet by mouth every 4-6 hours as needed 11/15/2020 hyoscyamine (ANASPAZ) Place one 180 tablet [...] mg tablet tablet by mouth twice daily. 12/12/2020 spironolactone Take one 180 tablet 1 (ALDACTONE) 100 mg tablet by tabletIndications: Acute mouth twice on chronic heart failure daily. Take with preserved ejection with food. fraction (HCC), Aortic valve prosthesis present 03/22/2020 VASCEPA 1 gram capsule TAKE 2 0 CAPSULES BY MOUTH TWICE DAILY WITH MEALS 12/04/2020 warfarin (COUMADIN) 1 mg Take two 120 tablet 0 tablet tablets by mouth daily. 12/04/2020 12/22/2020 bumetanide (BUMEX) 1 mg Take five 360 tablet 1 tabletIndications: Acute tablets by on chronic heart failure mouth twice with preserved ejection daily. fraction (HCC), Aortic valve prosthesis present 12/12/2020 12/22/2020 digoxin (LANOXIN) 125 mcg Take 62.5 mcg 90 tablet 3 (0.125 mg) tablet (1/2 tab) alternating with 125 mcg (1 tab) daily documented as of this encounter Discharge Disposition Code Departure Means Destination Disposition Wheelchair Home or Self Care documented in this encounter Progress Notes * Kayden Felix RN - 12/20/2020 3:00 PM CDT Interventional Radiology Outpatient Scheduling Checklist 1. Name of Procedure(s): Paracentesis 2. Date of Procedure: 12/20/2020 3. Arrival Time: 1400 4. Procedure Time: 1500 5. Correct Procedural Room Assignment: IR Room #7 SONO 6. Blood Thinners Triaged and instructed per protocol: Y/N/NA: Patient araceli santos Coumadin, OK to continue per protocol. Confirmed accurate instructions sent to patient: Y/N: YES 7. Procedure Order Verified: Y/N: Yes 9. Patient instructed to have a bulk delivery driver: Y/N/NA: Yes 10. Patient instructed on NPO status: Y/N/NA: NO Restrictions. Confirmed accurate instructions sent to patient: Y/N: Yes 11. Specimen needed: Y/N/NA: NO Verified Order placed: Y/N: N/A 12. Allergies Verified: Y/N: Yes 13. Is there an Iodine Allergy: Y/N: No Does the Procedure Require contrast: Y/N: NO If so, was the IR- Contrast Allergy Pre-Procedure Medication protocol ordered: Y /NA: NA 14. Does the patient have labs according to IR Pre-procedure Laboratory Paramet er policy: Y/N/NA: Yes If No, was the patient instructed to obtain labs prior to procedure: Y/N/NA: NA 15. Will the patient need to be admitted or have a possible admission: Y/N: No If yes, confirmed accurate instructions sent to patient: Y/N/NA: NA 16. Patient States Understanding: Y/N: Yes 17. History of CATE: Y/N: No If yes, confirm request to bring CPAP sent to patient: Y/N/NA: NA 18. Patient declines electronic procedure instructions: Y/N: No * Summer Du APRN-TWYLA - 12/20/2020 2:59 PM CDT Interventional Radiology Progress Note Patient to IR today for paracentesis. Heart failure ordered labs to be drawn owen or to paracentesis and INR resulted at 6.4. Discussed with Dr. Nelson and will can cecelia paracentesis today. Discussed INR with Basilia Gaitan NP who manages patient and coumadin. She discussed with her attending and patient to be seen in heart failure clinic today for adjustment of medications. Patient tentatively schedule d for paracentesis 12/22 pending improvement in INR. Patient and verbaliz ed understanding. Summer Du APRN-OWNER SPA DIRECTOR * Court Diaz RN - 12/20/2020 2:42 PM CDT Cardiology reviewed patient labs. Med adjustment to be made today and recheck to be done on Friday. Patient will not get paracentesis today and instead will go down to the heart failure clinic for medication changes. IR to reschedule or Friday contingent on INR results. Patient stated understanding. * Kassandra aHrmon RN - 12/20/2020 2:15 PM CDT 1415: Pt had a critical INR of 6.4. Notified Dr. Nelson, who said to cancel parace ntesis. Pt notified and upset with this decision, as she is uncomfortably full o f ascites fluid. Summer Du APRN in contact with team managing coumadin to f igure out a plan. Pt denies needs at this time. Pt is hopeful to get paracentesi s today. 1445: Ultrasound scan of abdomen completed by RT Geoffrey to obtain images of flu id for cardiology's reference. 1440: Updated pt's of the situation and new plan (see Court's note). * Summer Taylor BSN - 12/20/2020 2:08 PM CDT Pt to IR [place] 5 for preprocedure work up. Connected to bedside monitor, VSS on RA. Critical result called from today's outpt labs, INR 6.4. TAN Dolan OWNER SPA DIRECTOR notified Leslie. Leslie to cancel paracentesis. OWNER SPA DIRECTOR also called Cardiology. Cardiology to admit pt. Pt updated on POC, all questions answered at this time. Cart locked in lowest position and call light in reach. * Brigitte Hinojosa RN - 12/20/2020 2:00 PM CDT Interventional Radiology Outpatient Scheduling Checklist 1. Name of Procedure(s): Paracentesis 2. Date of Procedure: 12/20/2020 3. Arrival Time: 1300 4. Procedure Time: 1400 5. Correct Procedural Room Assignment: [place] Room 7 6. Blood Thinners Triaged and instructed per protocol: Y/N/NA: NA Confirmed accurate instructions sent to patient: Y/N: NA 7. Procedure Order Verified: Y/N: Yes 9. Patient instructed to have a bulk delivery driver: Y/N/NA: Yes 10. Patient instructed on NPO status: Y/N/NA: NA Confirmed accurate instructions sent to patient: Y/N: Yes 11. Specimen needed: Y/N/NA: NA Verified Order placed: Y/N: Yes 12. Allergies Verified: Y/N: Yes 13. Is there an Iodine Allergy: Y/N: No Does the Procedure Require contrast: Y/N: NO If so, was the IR- Contrast Allergy Pre-Procedure Medication protocol ordered: Y /NA: NA 14. Does the patient have labs according to IR Pre-procedure Laboratory Paramet er policy: Y/N/NA: NA If No, was the patient instructed to obtain labs prior to procedure: Y/N/NA: NA 15. Will the patient need to be admitted or have a possible admission: Y/N: No If yes, confirmed accurate instructions sent to patient: Y/N/NA: NA 16. Patient States Understanding: Y/N: Yes 17. History of CATE: Y/N: No If yes, confirm request to bring CPAP sent to patient: Y/N/NA: NA 18. Does the patient have an insulin pump or continuous glucose monitor? Y/N: N O If yes, was the patient instructed that this will need to be removed for this p rocedure and to bring supplies to reapply once the procedure is complete? Y/N 19. Patient was sent electronic procedure instructions: Y/N: Yes; my chart documented in this encounter H&P Notes * Summer Du APRN-OWNER SPA DIRECTOR - 12/20/2020 1:54 PM CDT Pre Procedure History and Physical/Sedation Plan-OP Procedure Date: 12/20/2020 Planned Procedure(s): US guided paracentesis Indication for exam: Ascites Chief Complaint: See above History of Present Illness: Zaria Paulson is a 60 y.o. female that presents t o IR today for paracentesis. Patient reports feeling well except for abdominal d istention. Patient Active Problem List Diagnosis Date Noted Acute on chronic diastolic (congestive) heart failure (HCC) 12/10/2020 RVF (right ventricular failure) ([facility]) 11/30/2020 Hyponatremia 11/30/2020 Acute on chronic heart failure (HCC) 11/29/2020 Hematoma of left flank 11/15/2020 Hematoma of right flank 11/15/2020 Hematuria 11/15/2020 Vaginal bleeding 11/15/2020 Nontraumatic rectus hematoma 11/04/2020 Hypoalbuminemia 10/23/2020 LEONORA (acute kidney injury) ([facility]) 10/21/2020 GI bleeding 10/20/2020 Cirrhosis (HCC) 09/07/2020 [...] aortic valve replacement 06/07/2020 Chronic anticoagulation 06/07/2020 History of endocarditis 06/07/2020 Medical History: Diagnosis Date Cancer (HCC) Non- hodgkins lymphoma, chemo Disorder of thyroid gland Hypertension Iron deficiency anemia 08/03/2020 Iron deficiency anemia 08/03/2020 Surgical History: Procedure Laterality Date AORTIC VALVE REPLACEMENT 05/2009 mechanical ESOPHAGOGASTRODUODENOSCOPY WITH BIOPSY - FLEXIBLE N/A 06/06/2020 Performed by Bao Hernández MD at [facility] COLONOSCOPY DIAGNOSTIC WITH SPECIMEN COLLECTION BY BRUSHING/ WASHING - FLEXI BLE N/A 06/06/2020 Performed by Bao Hernández MD at [facility] ANGIOGRAPHY CORONARY ARTERY WITH RIGHT AND LEFT HEART CATHETERIZATION N/A Performed by Higinio Clarke MD at [facility] POSSIBLE PERCUTANEOUS CORONARY STENT PLACEMENT WITH ANGIOPLASTY N/A Performed by Higinio Clarke MD at [facility] ESOPHAGOGASTRODUODENOSCOPY WITH SPECIMEN COLLECTION BY BRUSHING/ WASHING N/A 10/21/2020 Performed by Cosmo Gomez MD at [facility] SIGMOIDOSCOPY WITH CONTROL OF BLEEDING - FLEXIBLE N/A 10/21/2020 Performed by Cosmo Gomez MD at [facility] SIGMOIDOSCOPY WITH DIRECTED SUBMUCOSAL INJECTION - FLEXIBLE 10/21/2020 Performed by Cosmo Gomez MD at [facility] Medications Prior to Admission Medication Sig Dispense Refill Last Dose acetaminophen (TYLENOL EXTRA STRENGTH) 500 mg tablet Take 500 mg by mouth ev [place] 4 hours as needed for Pain. Max of 4,000 mg of acetaminophen in 24 hours. amoxicillin (AMOXIL) 500 mg capsule Take 500 mg by mouth every 8 hours. ascorbic acid (VITAMIN C) 500 mg tablet Take 500 mg by mouth daily. bumetanide (BUMEX) 1 mg tablet Take five tablets by mouth twice daily. 360 t ablet 1 calcium carbonate (OS-KRUPA) 1250 mg tablet Take 1,250 mg by mouth daily. digoxin (LANOXIN) 125 mcg (0.125 mg) tablet Take 62.5 mcg (1/2 tab) alternat ing with 125 mcg (1 tab) daily 90 tablet 3 ergocalciferol (VITAMIN D-2) 1,250 mcg (50,000 unit) capsule Take 1 capsule by mouth every 7 days. fluticasone propionate (FLONASE) 50 mcg/actuation nasal spray, suspension Ap ply to each nostril as directed daily. Shake bottle gently before using. HYDROcodone/acetaminophen (NORCO) 5/325 mg tablet Take 1 tablet by mouth alok ry 4-6 hours as needed hyoscyamine (ANASPAZ) 0.125 mg rapid dissolve tablet [...] three ti mes daily. [address] (PROTONIX) 40 mg tablet Take 40 mg by mouth twice daily. potassium chloride SR (K-DUR) 20 mEq tablet Take 20 mEq by mouth twice daily . Take with a meal and a full glass of water. sertraline (ZOLOFT) 100 mg tablet Take one tablet by mouth twice daily. 180 tablet 0 spironolactone (ALDACTONE) 100 mg tablet Take one tablet by mouth twice shayy y. Take with food. 180 tablet 1 VASCEPA 1 gram capsule TAKE 2 CAPSULES BY MOUTH TWICE DAILY WITH MEALS warfarin (COUMADIN) 1 mg tablet Take two tablets by mouth daily. 120 tablet 0 No Known Allergies Social History: Social History Tobacco Use Smoking status: Never Smoker Smokeless tobacco: Never Used Substance Use Topics Alcohol use: Not Currently Family History Problem Relation Age of Onset COPD Mother Review of Systems Constitutional: negative for fevers and chills Respiratory: negative for cough or dyspnea Gastrointestinal: positive for abdominal distention Previous Anesthetic/Sedation History: NA. Code Status: Prior Physical Exam: Vital Signs: Last Filed In 24 Hours Vital Signs: 24 Hour Range BP: 105/69 (12/20 1349) Pulse: 111 (12/20 1349) Respirations: 30 PER MINUTE (12/20 1348) SpO2: 96 % (12/20 1348) SpO2 Pulse: 113 (12/20 134) Height: 157.5 cm (62") (12/20 120) BP: (90-105)/(60-69) Pulse: [94-111] Respirations: [30 PER MINUTE] SpO2: [96 %-98 %] General appearance: alert and no distress Neurologic: Grossly normal, at baseline Lungs: Nonlabored with normal effort Abdomen: soft, distended Sedation/Medication Plan: Lidocaine Medications for Reversal: None Discussion/Reviews: Physician has discussed risks and alternatives of this type of sedation and above planned procedures with patient NPO Status: Acceptable Status: Hysterectomy Lab/Radiology/Other Diagnostic Tests: Labs: Pertinent labs reviewed Summer Du APRN-OWNER SPA DIRECTOR Pager [phone] documented in this encounter Miscellaneous Notes * Patient Education - Kayden Felix RN - 12/20/2020 3:00 PM CDT Dear Ms Paulson, Thank you for choosing [facility] Interventional Rad iology for your procedure. Your appointment information is listed below: Appointment Date: 12/20/2020 Appointment Time: 3PM Arrival Time: 2PM Location: ? Main [place]: [address] [place] [address] Parking: [address] INTERVENTIONAL RADIOLOGY PRE-PROCEDURE INSTRUCTIONS LOCAL You are scheduled for a procedure in Interventional Radiology. [facility] and any direction from your Primary Care/Managing Physician. I f you have questions about your procedure or need to reschedule please call [phone]. Medication Instructions: Continue scheduled medication, including your Coumadin . Diet Instructions: Maintain regular diet with no restrictions. Day of Exam Instructions: 1. Bathe or shower with an antibacterial soap prior to your appointment. 2. Bring a list of your current medications and the dosages. 3. Wear comfortable clothing and leave valuables at home. 4. Arrive (1) hour prior to your appointment. This time will be spent registeri ng, interviewing, assessing, educating, and preparing you for the test. You will be with us anywhere from 30 minutes to 2 hours after your exam depe nding on your procedure. 5. Depending on the procedure and as instructed by the nurse a responsible adult may be required to drive you home (no Uber, taxis or buses are allowed). If a d river is required and you do not have one we will be unable to perform your pro cedure. 6. The nurse will give you discharge instructions about your care and activities after the procedure. * Patient Education - Brigitte Hinojosa RN - 12/20/2020 2:00 PM CDT Dear Khurram, Thank you for choosing [facility] Interventional Rad iology for your procedure. Your appointment information is listed below: Appointment Date: 12/20/2020 Appointment Time: 2:00 PM Arrival Time: 1:00 PM Location: ? Main [place]: [address] [place] [address] Parking: [address] INTERVENTIONAL RADIOLOGY PRE-PROCEDURE INSTRUCTIONS LOCAL You are scheduled for a procedure in Interventional Radiology. Please follow [facility] instructions and any direction from your Primary Care/Managing Physician. I f you have questions about your procedure or need to reschedule please call . Medication Instructions: Continue scheduled medication. Diet Instructions: Maintain regular diet with no restrictions. Day of Exam Instructions: 1. Bathe or shower with an antibacterial soap prior to your appointment. 2. Bring a list of your current medications and the dosages. 3. Wear comfortable clothing and leave valuables at home. 4. Arrive (1) hour prior to your appointment. This time will be spent registeri ng, interviewing, assessing, educating, and preparing you for the test. You will be with us anywhere from 30 minutes to 2 hours after your exam depe nding on your procedure. 5. Depending on the procedure and as instructed by the nurse a responsible adult may be required to drive you home (no Uber, taxis or buses are allowed). If a d river is required and you do not have one we will be unable to perform your pro cedure. 6. The nurse will give you discharge instructions about your care and activities after the procedure. documented in this encounter Plan of Treatment Order Schedule Name Type Priority Associated Diag noses 1 Occurrences starting 12/20/2020 until 12/20/2020 IR PARACENTESIS Imaging Routine Cirrhosis of l iver with THERAPEUTIC ascites, unspecified hepatic cirrhosis type (HCC) documented as of this encounter Goals Goal Patient Associated Recent Progress Patient-Stat Aut hor Goal Type Problems ed? [facility] On track (10/23/2020 Yes Sheldon, 1:06 PM CDT) CHRYSTAL Singh documented as of this encounter Visit Diagnoses Diagnosis Cirrhosis of liver with ascites, unspec ified hepatic cirrhosis type (HCC) documented in this encounter Additional Health Concerns Assessment Noted Time A fall risk assessment has been completed for the pat ient 12/20/2020 1:50 PM CDT PHQ-2 Depression Total Score: 2 12/07/2020 3:18 PM CDT documented as of this encounter
--- OUTSIDE RECORDS SUMMARY | 2020-12-22 13:35 | XMS REPORT | Encounter Summary ---
Author Author [facility] Organization [facility] Address Unknown Phone Unavailable Care Team Providers Care Dyno Technician Name Role Phone Self, Garfield OLVERA PCP Riley Hopson MD 3 Reason for Visit * Reason Onset Date Comments Follow Up 12/12/2020 Patient INR Goal Encounter Details Care Team Description Date Type Department Helen Waggoner RN Follow Up (Patient INR Goal 12/12/2020) 12/12/2020 Telephone Cardiology: [facility] [address] [place] [address] [address], [address] [place] [address] Social History Date Tobacco Use Types Packs/Day Years Used Never Smoker Smokeless Tobacco: Never Used Comments Alcohol Use Standard Drinks/Week Not Currently 0 (1 standard drink = 0.6 o z pure alcohol) Sex 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 Lyla dowell. Her discharge summary note from above hospitalization states the following: "Mechanical aortic valve -Implanted 2010 - [id number] daily" - INR4.1on admission > ContinueWarfarin with lower goal 2.0-2.5 given recent GI bleed (not usual 2.5-3.5 for mechnical valve). (patient reports her goal 1.7-2.0) > next INR check 12/06 through her Rn Observation office. Paroxysmal atrial fibrillation - Went into [...] Patient-Stat Aut hor Goal Type Problems ed? [facility] On track (10/23/2020 Yes Sheldon, 1:06 [...]
--- OUTSIDE RECORDS SUMMARY | 2020-12-22 13:35 | XMS REPORT | Encounter Summary ---
Author Author [facility] Organization [facility] Address Unknown Phone Unavailable Care Team Providers Care Company Driver Name Role Phone Self, Garfield OLVERA PCP Riley Hopson MD 3 Gino Pandya 7 Encounter Details Care Team Description Date Type Department Blanche Padilla RN 12/22/2020 Telephone Cardiology: [facility] [address] [facility] [address], [address] [place] [address] Social History Date Tobacco Use Types Packs/Day Years Used Never Smoker Smokeless Tobacco: Never Used Comments Alcohol Use Standard Drinks/Week Not Currently 0 (1 standard drink = 0.6 o z pure alcohol) Sex Assigned at Date Recorded Female 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 Lamb. Pt instructed to proceed to the ER now for evaluation. Pt re fuses to go to but states she will go to [place] via private vehicle, [employer] and to drive. Hospital is 10 min from pt's house. ER called. Spoke to RN. ----- Message from HOSSEIN Chavez sent at 12/22/2020 12:16 PM CDT ----- Her sodium level is way too low still can you review w/ [facility] or [facility] (I'm out of t he office today). They may want her to go to the ED for the low sodium. She need s to hold her Bumex and santosh until it comes back up. INR is better. Also, looks like her med list didn't get updated the other day. She should have held Bumex and santosh x 1 day and then Bumex should be 3 mg bid (see AVS as I thi cher Duff updated it when she came back to the office after going to IR). I also s et a message on adjusting her digoxin dose and that's not updated either. documented in this encounter Plan of Treatment [...]
--- OUTSIDE RECORDS SUMMARY | 2020-12-22 13:35 | XMS REPORT | Encounter Summary ---
Author Author [facility] Organization [facility] Address Unknown Phone Unavailable Care Team Providers Care Regional Account Director Name Role Phone Self, Garfield OLVERA PCP Riley Hopson MD 3 Gino Pandya APRN-EXPENDITURE REQUISITION CLERK 7 Reason for Visit * Reason Onset Date Comments Other 12/22/2020 Digoxin dose change per provider 12/21/2020 Encounter Details Care Team Description Date Type Department Blanche Padilla RN Other (Digoxin dose change per provider 12/21/2020) 12/22/2020 Telephone Cardiology: [facility] [address] [facility] [address] [place] [address] Social History Date Tobacco Use Types Packs/Day Years Used Never Smoker Smokeless Tobacco: Never Used Comments Alcohol Use Standard Drinks/Week Not Currently 0 (1 standard drink = 0.6 o z pure alcohol) Sex Assigned at Date Recorded 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 documented in this encounter Miscellaneous Notes * Telephone Encounter - Blanche Padilla RN - 12/22/2020 12:57 PM CDT Medication list updated and Basilia Gaitan APRN recommendations below ordered. PC to HHRN to let them know of needing Dig level, CBC in 1 week and Digoxin dose changed to Digoxin 0.125 every 48 hours. Josi Purvis BSN TA 9:39 AM Note ----- Message from Basilia Gaitan APRN-EXPENDITURE REQUISITION CLERK sent at 12/20/2020 5:51 PM CDT ----- Please have her reduce digoxin to 125 mcg every other day. Repeat digoxin level in 1 week. CMP and INR results have already been addressed. WBCs are elevated. Patient currently being treated for UTI. Repeat CBC in 1 we ek. documented in this encounter Plan of Treatment Order Schedule Name Type Priority Associated Diag noses Expected: 12/29/2020 (Approximate), Expi res: 12/22/2021 CBC Lab Routine Leukocytosis, u nspecified type Expected: 12/29/2020 (Approximate), Expi res: 12/22/2021 DIGOXIN LEVEL Lab Routine Chronic heart f ailure with preserved ejection fraction (HCC) Acute on chronic diastolic (congestive) heart failure (HCC) Atrial tachycardia (HCC) documented as of this encounter Goals Goal Patient Associated Recent Progress Patient-Stat Aut hor Goal Type Problems ed? Improve [facility] On track (10/23/2020 Yes [place], 1:06 PM CDT) CHRYSTAL Singh documented as of this encounter Visit Diagnoses Diagnosis Iron deficiency anemia due to chronic b lood loss - Primary Iron deficiency anemia secondary to blo od loss (chronic) Leukocytosis, unspecified type Chronic heart failure with preserved ej ection fraction (HCC) Acute on chronic diastolic (congestive) heart failure (HCC) Atrial tachycardia (HCC) Other specified cardiac dysrhythmias documented in this encounter Discontinued Medications Start Date End Date Medication Sig Discontinue Reason 12/12/2020 12/22/2020 digoxin (LANOXIN) 125 mcg Take 62.5 Per Provider (0.125 mg) tablet mcg (1/2 tab) alternating with 125 mcg (1 tab) daily documented as of this encounter Additional Health Concerns Assessment Noted Time A fall risk assessment has been completed for the pat ient 12/20/2020 1:50 PM CDT PHQ-2 Depression Total Score: 2 12/07/2020 3:18 PM CDT documented as of this encounter
--- OUTSIDE RECORDS SUMMARY | 2020-12-22 13:35 | XMS REPORT | Encounter Summary ---
Author Author [facility] Organization [facility] Address Unknown Phone Unavailable Care Team Providers Care Clam Treader Name Role Phone Self, Garfield OLVERA PCP Riley Hopson MD 3 Reason for Visit * Reason Comments Records Request Encounter Details Care Team Description Date Type Department Susan Palomino, CHRYSTAL Records Request 12/14/2020 Documentation Cardiology: [facility] 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
--- OUTSIDE RECORDS SUMMARY | 2020-12-22 13:35 | XMS REPORT | Encounter Summary ---
Author Author [facility] Organization [facility] Address Unknown Phone Unavailable Care Team Providers Care Stockkeeper Name Role Phone Garfield Gray MD PCP Riley Hopson MD 3 Encounter Details Care Team Description Date Type Department Josi Purvis BSN Severe tricuspid regurgitation; Paroxysmal atrial fibrillation (HCC); Non-ischemic cardiomyopathy (HCC); History of endocarditis; High output congestive heart failure (HCC) 12/12/2020 Orders Only Cardiology: [facility] [address] [facility] [address], [address] [place] [address] Social History Date Tobacco Use Types Packs/Day Years Used Never Smoker Smokeless Tobacco: Never Used Comments Alcohol Use Standard Drinks/Week Not Currently 0 (1 standard drink = 0.6 o z pure alcohol) Sex Assigned at Date Recorded Female 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 [facility] On track (10/23/2020 Yes [place], 1:06 [...]
--- OUTSIDE RECORDS SUMMARY | 2020-12-22 13:35 | XMS REPORT | Encounter Summary ---
Author Author [facility] Organization [facility] Address Unknown Phone Unavailable Care Team Providers Care Test Developer Name Role Phone Self, Garfield OLVERA PCP Riley Hopson MD 3 Gino Pandya APRN-INTERIOR DESIGN INSTRUCTOR 7 Reason for Visit * Reason Comments Order Follow Up Encounter Details Care Team Description Date Type Department Sherin Mata BSN Order Follow Up 12/20/2020 Documentation Cardiology: [facility] [address] [facility] [address], [address] [place] [address] Social History Date Tobacco Use Types Packs/Day Years Used Never Smoker Smokeless Tobacco: Never Used Comments Alcohol Use Standard Drinks/Week Not Currently 0 (1 standard drink = 0.6 o z pure alcohol) Sex Assigned at Date Recorded Female 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 [facility] On track (10/23/2020 Yes [place], 1:06 [...]
--- OUTSIDE RECORDS SUMMARY | 2020-12-22 13:35 | XMS REPORT | Encounter Summary ---
Author Author [facility] Organization [facility] Address Unknown Phone Unavailable Care Team Providers Care Aerial Lineman Name Role Phone Self, Garfield OLVERA PCP Riley Hopson MD 3 Gino Pandya SPECIAL SERVICE OFFICER-TOOL LAPPER HAND 7 Reason for Visit * Reason Comments Palliative Care Follow Up Encounter Details Care Team Description Date Type Department Gino Pandya, SPECIAL SERVICE OFFICER-TOOL LAPPER HAND [address] [facility] [place] [address] Chronic heart failure with preserved eje ction fraction (HCC) (Primary Dx); Severe tricuspid regurgitation; Non-ischemic cardiomyopathy (HCC); Cirrhosis of liver with ascites, unspecified hepatic cirrhosis type (HCC); Goals of care, counseling/discussion; RVF (right ventricular failure) (HCC) 12/20/2020 Office Visit Palliative Care: [facility] [place], [facility] [address] [facility] [address], [address] [place] [address] Social History Date Tobacco Use Types Packs/Day Years Used Never Smoker Smokeless Tobacco: Never Used Comments Alcohol Use Standard Drinks/Week Not Currently 0 (1 standard drink = 0.6 o z pure alcohol) Sex Assigned at Date Recorded Female 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 documented as of this encounter Last Filed Vital Signs Reading Time Taken Comments Vital Sign 90/60 12/20/2020 12:08 PM CDT Blood Pressure 94 12/20/2020 12:08 PM CDT Pulse - - Temperature - - Respiratory Rate 98% 12/20/2020 12:08 PM CDT Oxygen Saturation - - Inhaled Oxygen Concentration 60.3 kg (133 lb) 12/20/2020 12:08 PM CDT Weight 157.5 cm (5' 2") 12/20/2020 12:08 PM CDT Height 24.33 12/20/2020 12:08 PM CDT Body Mass Index documented in [...] as of this encounter Progress Notes * Gino Pandya, RYAN-TOOL LAPPER HAND - 12/20/2020 12:00 PM CDT PALLIATIVE CARE OUTPATIENT VISIT Date of Service: 12/20/2020 MAC/HF Attending: Dr. Carlos Longo PCP: Garfield Gray Inpatient consult date: 12/01/20 ASSESSMENT/PLAN #Chronic HFpEF #NICM #Sever TR #RV failure #Cirrhosis #Goals of care Pt indicates awareness of concern for limited prognosis, potentially <1 year. She has communicated her prognosis to family since hospital stay. Currently has [facility] which is appropriate level of support cur rently. Remains open to testing/procedures/interventions that may help her feel better; open to option for hospitalization in the future. Pt does indicate she w ould be open to hospice in the future if obvious continued decline in condition. Pt will give more consideration to her preferences for her code status--plans to discuss further with sons and will reach out if interested in more cooperati ve discussion--her hope would be for her sons to be able to see her acutely prio r to her ; we discussed practically what this may look like for her/sons co nsideration. HF has arranged paracentesis today; have d/w Lenny Gaitan NP who will be in to [facility] regarding future paracentesis plan for symptom relief. Per chart, may be consideration of palliative inotrope therapy in the future for symptom palliation. Follow-up: Will continue to follow periodically in coordination with upcoming HF clinic visits as can be arranged. Thank you for the opportunity to participate in the care of this patient. Please call with any questions or concerns. Gino Pandya APRN, TWYLA-C Palliative Care--Outpatient Heart Failure Pager: Office: (Total time spent 40 minutes, including visit preparation, counseling on illness /goals of care, care coordination, documentation.) SUBJECTIVE CC: Abdominal discomfort, fatigue HPI: Zaria Paulson is a 60 y.o. female with chronic heart failure preserved E F, nonischemic cardiomyopathy, severe tricuspid regurgitation, significant RV fa ilure, history of mechanical aortic valve replacement, cirrhosis of unclear etio logy (at least a component of HF related complication), paroxysmal atrial fibril lation, hypertension, iron deficiency anemia, chronic kidney disease, history of non-Hodgkin lymphoma s/p chemo. Pt was admitted from cardiology clinic 11/29-12/04 due to acutely decompensated HF. During admission, HF has discussed concern for limited prognosis with patient given limited mngt options for RV dysfunction and tricuspid valve issues in setting of concomitant cirrhosis--discussion of prog nosis possibly 1 year. Palliative Care consulted during admission for goals of c are with plan for continued cooperative following with HF in clinic. Met in room with patient and TABITHA Toribio. Provided overview of supportive palliative care services. Pt discusses that she has been able to talk with her sons and fa ther about prognosis of <1 year discussed during most recent inpatient admission. Patient tells me she feels these discussions went well overall. She continues to be hoping for quite a bit more time. She is having abd discomfort, progressive over recent days with noted increased abd girth felt r/t ascites--plan for paracentesis this afternoon. Similar discomfort previously before paracentesis during her recent admission. She is wrapping abd with PÉREZ bandage and this is helpful--she tells me she is having an abd binder delivered to home in the next couple days. She also used PRN Hydrocodone prescribed by PCP and finds this helpful. Pt has [facility] at home and is feeling well supported by their team. She discusses being open to hospice in the future if obvious decline in condition. We reviewed continued plan of care--pt describes her understanding that her hear t and liver issues cannot be "fixed" and that the primary plan is to try to help her feel as well as she can for as long as she can, primarily using medications to do this. She remains open to procedures, testing, interventions to help her feel better. We also reviewed DPOA on file--this remains accurate naming her sons. We discuss ed preferences for code status. Described CPR thoroughly. Pt still debating her preference in this regard. She has much hope that her sons could see her alive a gain, however also recognizes that she may have poor recovery if she were to att empt to undergo CPR. She wishes to plan to talk further with her sons about this and will contact palliative care through HF clinic if interest for cooperative family discussion or if pt decides she would not want CPR in the future. ROS: Denies nausea, chest pain, constipation OBJECTIVE Vitals: SpO2: 96% Weight: 60.6 kg (133 lb 9.6 oz) Height: 1.575 m (5' 2") PainSc: Zero Body mass index is 24.44 kg/m. Physical Exam: Constitutional: Adult female; no obvious acute distress; fatigued in appearance. Eyes: Sclera non-icteric, conjunctiva clear. ENMT: Lips, mucosa, and tongue moist. Neck: Supple. Trachea midline. Respiratory: Non-labored breathing pattern at rest or with conversation. Gastrointestinal: Abdomen appears to have moderate/large degree of ascites. Skin: Warm, dry, no rash/lesions. Neurologic: Alert and oriented to person, place, time, and situation. Psych: Calm, engaged in discussion; basic insight. Palliative Performance Scale: Performance Scale (%): 70 Advanced Care Planning: Code Status: Full Code Level of Intervention: Full Treatment DPOA: Blair Chambers (son)--form on file Living Will: none on file Cardiac Devices: none Medications: acetaminophen (TYLENOL EXTRA STRENGTH) 500 mg tablet [...] tablet Take two tablets by mouth daily. Palliative Care Outpatient - Heart Failure: MD Gino Mosley APRN [address] [facility] [address] [place] [address] [phone] Phone contact: [phone] documented in this encounter Plan of Treatment Not on filedocumented as of this encounter Goals Goal Patient Associated Recent Progress Patient-Stat Aut hor Goal Type Problems ed? [facility] On [facility] (10/23/2020 Yes [place], 1:06 PM CDT) CHRYSTAL Singh documented as of this encounter Visit Diagnoses Diagnosis Chronic heart failure with preserved ej ection fraction (HCC) - Primary Severe tricuspid regurgitation Diseases of tricuspid valve Non-ischemic cardiomyopathy (HCC) Other primary cardiomyopathies Cirrhosis of liver with ascites, unspec ified hepatic cirrhosis type (HCC) Goals of care, counseling/discussion Other specified counseling RVF (right ventricular failure) (HCC) Congestive heart failure, unspecified documented in this encounter Additional Health Concerns Assessment Noted Time A fall risk assessment has been completed for the pat ient 12/20/2020 1:50 PM CDT PHQ-2 Depression Total Score: 2 12/07/2020 3:18 PM CDT documented as of this encounter
--- OUTSIDE RECORDS SUMMARY | 2020-12-22 13:35 | XMS REPORT | Encounter Summary ---
Author Author [facility] Organization [facility] Address Unknown Phone Unavailable Care Team Providers Care Wood Polisher Name Role Phone Self, Garfield OLVERA PCP Riley Hopson MD 3 Gino Pandya APRN-MARINE PAINTER 7 Reason for Visit * Reason Onset Date Comments Lab Request 12/21/2020 CBC 1 week Encounter Details Care Team Description Date Type Department Josi Purvis BSN Lab Request (CBC 1 week) 12/21/2020 Telephone Cardiology: [facility] [address] [facility] [address], [address] [place] [address] Social History Date Tobacco Use Types Packs/Day Years Used Never Smoker Smokeless Tobacco: Never Used Comments Alcohol Use Standard Drinks/Week Not Currently 0 (1 standard drink = 0.6 o z pure alcohol) Sex Assigned at Date Recorded Female 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 Med list updated. Pt and HH notified of med change. * Telephone Encounter - Josi Purvis BSN - 12/21/2020 10:11 AM CDT Call to HH spoke to Tirso [facility] next week they will draw order faxed * Telephone Encounter - Josi Purvis BSN - 12/21/2020 9:39 AM CDT Call to pt advised will need CBC in 1 week, will contact HH to draw labs. Pt ve rb understanding * Telephone Encounter - Josi Purvis BSN - 12/21/2020 9:39 AM CDT ----- Message from Basilia Gaitan APRN-MARINE PAINTER sent at 12/20/2020 5:51 PM CDT ----- [...] [facility] On track (10/23/2020 Yes [place], 1:06 PM CDT) CHRYSTAL Singh documented as of this encounter Results * CBC (12/22/2020) White Blood 23.9 (H) 4.3 - 11.0 [...] Specimen Blood - Blood Performing Organization Address City/State/ZIP Code P shane Number [facility] [address] [place] [address] documented in this encounter Visit Diagnoses Diagnosis RVF (right ventricular failure) (HCC) - Primary Congestive heart failure, unspecified Chronic heart failure with preserved ej ection fraction (HCC) documented in this encounter Additional Health Concerns Assessment Noted Time A fall risk assessment has been completed for the pat ient 12/20/2020 1:50 PM CDT PHQ-2 Depression Total Score: 2 12/07/2020 3:18 PM CDT documented as of this encounter
--- OUTSIDE RECORDS SUMMARY | 2020-12-22 13:35 | XMS REPORT | Encounter Summary ---
Author Author [facility] Organization [facility] Address Unknown Phone Unavailable Care Team Providers Care Senior Director Of Global Commercial Technology Solutions Name Role Phone Self, Garfield OLVERA PCP Riley Hopson MD 3 Gino Pandya APRN-TWYLA 7 Reason for Referral * Consult, Test & Treat (Routine) Referred By Contact Referred To Contact Status Reason Specialty Diagnoses / Procedures Basilia Gaitan APRN-NP [id number] [place] [address] Pending Review Procedures REQUEST FOR CARDIOLOGY APPOINTMENT Electronically signed by Basilia CATALAN at Reason for Visit * Reason Comments Heart Failure 1 week follow up Follow Up Encounter Details Care Team Description Date Type Department Basilia Gaitan APRN-NP [id number] [place], [place] [id number] Heart Failure (1 week follow up); Follow Up 12/20/2020 Office Visit Cardiology: [facility] [address] [facility] [address], [address] [place] [address] Social History Date Tobacco Use Types Packs/Day Years Used Never Smoker Smokeless Tobacco: Never Used Comments Alcohol Use Standard Drinks/Week Not Currently 0 (1 standard drink = 0.6 o z pure alcohol) Sex Assigned at Date Recorded Female 06/01/2020 1:44 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 documented as of this encounter Last Filed Vital Signs Reading Time Taken Comments Vital Sign 90/60 12/20/2020 11:40 AM CDT Blood Pressure 94 12/20/2020 11:40 AM CDT Pulse - - Temperature - - Respiratory Rate 98% 12/20/2020 11:40 AM CDT Oxygen Saturation - - Inhaled Oxygen Concentration 60.6 kg (133 lb 9.6 oz) 12/20/2020 11:40 AM CDT Weight 157.5 cm (5' 2") 12/20/2020 11:40 AM CDT Height 24.44 12/20/2020 11:40 AM CDT Body Mass Index documented in [...] * Patient Instructions* Kathryn Barbosa MA - 12/20/2020 11:30 AM CDT Thank you for coming to [facility]. Your instructions tod ay: Recommendations: Hold Coumadin for Today(Wednesday 12/20) and Tomorrow(12/21) and we wi ll recheck your INR on Friday Hold Bumex tomorrow(12/21) Hold Potassium tomorrow (12/21) Hold Spironolactone tomorrow (12/21) Then on Friday Resume Bumex 3mg Twice a day Resume Spironolactone 100mg Twice a day Do NOT restart Potassium We will recheck labs(INR & BMP on Friday) to address Coumadin and Potassium. We will follow-up on your lab results to address when Paracentesis can be nuno eduled. Next follow up appointment 01/02 at 9:00 with Basilia Gaitan at the [facility]. For up to date information on the [...] symptoms o In a medical emergency, call [phone] or go to the nearest emergency room. If you wish to contact us, please call and leave a message for the heart failure nurses at [phone]. For urgent issues after hours, on the weekends or holidays, please call to be connected with the nurse or doctor environmental issues instructor. To schedule or change an appointment call [phone]. MD Basilia Jeffers, RYAN Watkins RN [facility] at [facility] Your Heart Failure Symptom Awareness and Action [...] symptoms, please call the heart failure nurses: [phone] Increased shortness of breath with activity Weight gain of 3 pounds in one day or 5 pounds in a week Increased swelling in your ankles or legs Increased swelling in your stomach Increasing fatigue You may need an adjustment of your medications. Red Zone These are urgent symptoms. Please call the heart failure nurses: [phone] Shortness of breath at rest or waking up at night feeling short of breath or co ughing Increased number of pillows used or needing to sit upright to sleep Chest tightness at rest Dizziness, lightheadedness or feeling faint You need to schedule an [facility] Emergency Zone call 911 Worsening chest tightness or pain that is not rel ieved by medication Severe shortness of breath and a cough with pink, frothy sputum documented in this encounter Ordered Prescriptions Start Date End Date Prescription Sig Dispensed Refills 12/22/2020 bumetanide (BUMEX) 1 mg Take three 360 tablet 1 tabletIndications: Acute tablets by on chronic heart failure mouth twice with preserved ejection daily. fraction (HCC), Aortic valve prosthesis present documented in this encounter Progress Notes * Basilia Gaitan, RYAN-METHANE GAS COLLECTION SYSTEM OPERATOR - 12/20/2020 11:30 AM CDT Date of Service: 12/20/2020 Zaria Paulson is a 60 y.o. female. She is followed by Dr. Longo. HPI Zaria Paulson is seen today in a 1 week follow-up visit. She has chronic hea rt failure with preserved ejection fraction with significant RV failure, nonisch emic cardiomyopathy, s/p aortic valve replacement x3 (on chronic anticoagulation for mechanical valve),tricuspid valve regurgitation, paroxysmal atrial fibril lation, hypertension, previous endocarditis, iron deficiency anemia -received IV iron, chronic kidney disease, hypothyroidism, depression, non-Hodgkins lymphoma and cirrhosis (etiology secondary to chemotherapy from treatment with non-Hod gkin lymphoma). She was recently hospitalized at [facility] with GI bleed and nontraumatic rectus hematoma. She was transferred from [facility] for left rectus muscle hematoma and active [...] reduced dose of B umex compared to TRANSPORTATION PLANNING TECHNICIAN dosing. She was followed closely in heart failure clinic and readmitted to [facility] from heart failure clinic on 11/29/2020 with [...] failure and palliative care team was consulted. She was seen in a post hospital visit on 12/12/2020 when she reported increased l eft upper and lower quadrant abdominal pain. I recommended repeat paracentesis w cyril is scheduled for later today. She reported taking her spironolactone 100 mg twice daily which I had her continue. I increased her digoxin (for RV failure) to 62.5 mcg alternating with 125 mcg daily as her digoxin level was low at 0.31 on 12/11. Zaria Paulson presents today accompanied by her . She reports that he r weight is stable on her home scale at 131-133 pounds. She continues to have l eft-sided upper and lower quadrant abdominal pain and fullness. Her pain is cur rently rated 89 out of 10. She is wrapping her abdomen with an Masood bandage f or the last 2 days which is helped slightly. She s continues to occasionally ma ssage the pain to improve it. This discomfort continues to limit her activity. She denies dyspnea on exertion. She denies any chest pain, lightheadedness, sy ncope, or strokelike symptoms. She has had a chance to talk with all of her [facility] members regarding her prognosis. She does report a fall on 12/16 and was tra nsported by ambulance to [facility]. This occurred when she was tryin g to get out of her bed and was too weak to stand. She was home alone. She rep orts a negative CT. She reports that she was diagnosed with a UTI and is curren tly on amoxicillin. Her reports that she has had a couple of episodes o f confusion over the last 2 weeks. Vitals: 12/20/20 1140 BP: 90/60 BP Source: Arm, Right Upper Patient Position: Sitting Pulse: 94 SpO2: 98% Weight: 60.6 kg (133 lb 9.6 oz) Height: 1.575 m (5' 2") PainSc: Eight Body mass index is 24.44 kg/m. Past Medical History Patient Active Problem List Diagnosis Date Noted Acute on chronic diastolic (congestive) heart failure (HCC) 12/10/2020 RVF (right ventricular failure) ([facility]) 11/30/2020 Hyponatremia 11/30/2020 Acute on chronic heart failure ([facility]) 11/29/2020 Hematoma of left flank 11/15/2020 Hematoma of right flank 11/15/2020 Hematuria 11/15/2020 Vaginal bleeding 11/15/2020 Nontraumatic rectus hematoma 11/04/2020 Hypoalbuminemia 10/23/2020 LEONORA (acute kidney injury) ([facility]) 10/21/2020 GI bleeding 10/20/2020 Cirrhosis ([facility]) 09/07/2020 Non-ischemic cardiomyopathy ([facility]) 09/07/2020 Paroxysmal atrial fibrillation ([facility]) 09/07/2020 Stage 3b chronic kidney disease ([facility]) 09/07/2020 Atrial tachycardia ([facility]) 09/07/2020 Iron deficiency anemia 08/03/2020 High output congestive heart failure ([facility]) 08/01/2020 Hypotension, unspecified 07/10/2020 Chronic heart failure with preserved ejection fraction ([facility]) 06/07/2020 Anemia 06/07/2020 Severe tricuspid regurgitation 06/07/2020 Hx of mechanical aortic valve replacement 06/07/2020 Chronic anticoagulation 06/07/2020 warfarin History of endocarditis 06/07/2020 ROS Review of Systems Constitutional: Negative. HENT: Negative. Eyes: Negative. Cardiovascular: Negative. Respiratory: Negative. Endocrine: Negative. Hematologic/Lymphatic: Negative. Skin: Negative. Musculoskeletal: Negative. Gastrointestinal: Positive for abdominal pain. Genitourinary: Negative. Neurological: Negative. Psychiatric/Behavioral: [...] failure with preserved ejection fraction (HCC) Yes Severe tricuspid regurgitation RVF (right ventricular failure) (HCC) Paroxysmal atrial fibrillation (HCC) Cirrhosis of liver with ascites, unspecified hepatic cirrhosis type (HCC) Urinary tract infection without hematuria, site unspecified Chronic anticoagulation Assessment and Plan Acute on chronic Heart [...] and potassium chloride 20 mEq twice daily. She will continue digoxin (for RV failure) 62.5 mcg alternating with 125 mcg daily and she will have digoxin level today. > CMP, digoxin level today > Patient is going to IR for abdominal ultrasound paracentesis as indicated today, 12/20. If there is a large amount of fluid we will try to determine if she needs regular ultrasound and paracentesis. > She is meeting with palliative care team today, Gino Pandya NP Atrial Fibrillation (Paroxysmal)/ Atrial Tachycardia/ s/p AorticValveReplace [...] above. > INR monitored by INR RN team. She will have an INR today. Chronic Kidney Disease - StageIII: Chronic hyponatremia -Her creatinine was 1.0 and sodium 132 on 12/12 > CMP today Cirrhosis History of colonic AVMs She follows with hepatology, Dr. Marti. Paracentesis 12/02 with 6.3 L fluid removal > Continue spironolactone and Bumex as above > We will repeat abdominal ultrasound with paracentesis if indicated in IR today, 12/20. We will need to determine if we need to do this on a regular basis. > Using abdominal binder > With recent confusion will check ammonia level Anemia Iron deficiency Recent GI bleeding in [...] denies any signs or symptoms of bleeding >CBC today Hematuria Urinary retention Seen by urology during late October hospitalization with plan for outpatient CT u rogram and cystoscopy. > Follow-up appointment on 12/22/[address] urogram and cystoscopy Hypoalbuminemia > Encourage protein intake in diet UTI > Currently on amoxicillin Zaria Paulson will follow-up in the heart failure clinic with myself on 01/02 . I have asked that she be scheduled with the palliative care METHANE GAS COLLECTION SYSTEM OPERATOR, Gino Pandya , same day. She has been encouraged to contact us prior to the next appointment with any questions, concerns, or worsening symptoms. Thank you for allowing me to participate in the care of this patient. If you hav e any questions please do not hesitate to contact our office. Basilia Gaitan, RACHELL-BC, MSN, CHFN | CVM Advance Practice Provider Heart Failure ARSALAN Coordinator [facility] | | [email or web address] Ramo Lamb Addendum: Patient lab results were reviewed with INR 6.4. Dr. Longo was contact ed and the PT/INR RN team followed up with the patient with further instructions . Given elevated INR her paracentesis will have to be put on hold. I did ask IR t eam to proceed with abdominal ultrasound to assess for abdominal ascites. Her BMP reveals creatinine slightly elevated at 1.2 with BUN at 23, sodium 125, potassium 5.3. She has been instructed to hold Bumex, potassium and spironolact one on 12/21. On Friday, 12/22, she will resume Bumex at 3 mg twice daily and spi ronolactone 100 mg twice daily. She will not resume potassium replacement. She will have repeat BMP and INR on 12/22. Total Time Today was 75 minutes in the following activities: Preparing to [...] by mouth daily. documented in this encounter Miscellaneous Notes * Addendum Note - Wanda Goodman BSN - 12/20/2020 11:30 AM CDT Addended by: WANDA GOODMAN on: 12/22/2020 12:31 PM Modules accepted: Orders documented in this encounter Plan of Treatment Not on filedocumented as of this encounter Goals Goal Patient Associated Recent Progress Patient-Stat Aut hor Goal Type Problems ed? [facility] On track (10/23/2020 Yes [place], 1:06 PM CDT) CHRYSTAL Singh documented as of this encounter Results * BASIC METABOLIC PANEL (12/22/2020) Sodium 122 (<) 135 - 145 [facility] [...] [facility] eGFR [facility] [place] Anion Gap 12 [facility] BUN/Creatinine 22 [facility] Ratio Specimen Blood - Blood Performing Organization Address City/State/ZIP Code P shane Number [facility] [address] [place] [address] * PROTIME INR (PT) (12/22/2020) INR 3.4 (H) 0.8 - 1.4 [facility] Protime 34 (H) 12.2 - 14.7 [facility] Specimen Blood - Blood Narrative Performed At This result has an attachment that is n ot available. Performing Organization Address City/[facility]/ZIP Code P shane Number [facility] [address] [id number] * CBC (12/20/2020 12:57 PM CDT) White Blood 22.2 (H) 4.5 - 11.0 K/UL [facility] Cells RBC 3.14 (L) 4.0 - 5.0 M/UL [facility] Hemoglobin 9.3 (L) 12.0 - 15.0 GM/DL [facility] Hematocrit 27.6 (L) 36 - 45 % [facility] MCV 88.0 80 - 100 FL [facility] MCH 29.5 26 - 34 PG [facility] MCHC 33.5 32.0 - 36.0 G/DL [facility] RDW 18.9 (H) 11 - 15 % [facility] Platelet Count 409 (H) 150 - 400 K/UL [facility] MPV 6.4 (L) 7 - 11 FL [facility] Specimen Blood Performing Organization Address [place]/[facility]/ZIP Code P shane Number [facility] [address] [id number] * AMMONIA (12/20/2020 12:57 PM CDT) Ammonia 32 9 - 35 MCMOL/L MAIN LAB Specimen Blood Performing Organization Address City/[facility] P shane Number [facility] [address] [id number] * PROTIME INR (PT) (12/20/2020 12:57 PM CDT) INR 6.4 (HH) 0.8 - 1.2 MAIN LAB Comment: CRITICAL VALUE CALLED TO AND READ BACK BY/TIME/TECH CHRYSTAL FRANCISCO at 12/20/2020 13:59:46 by 1006 Specimen Blood Performing Organization Address City/[facility]/ZIP Code P shane Number [facility] [address] [place] [address] * COMPREHENSIVE METABOLIC PANEL (12/20/2020 12:57 PM CDT) Sodium 125 (L) 137 - 147 MMOL/L [...] (L) >60 mL/min [facility] Comment: [place] The eGFR is not validated f or use in drug dosing adjustments. Continue to use estimated creatinine clearance per dosing reference text. Please contact the Clinical Pharmacist for questions. eGFR 56 (L) >60 mL/min [facility] [place] Comment: The eGFR is not validated for use in drug dosing adjustments. Continue to use estimated creatinine clearance per dosing reference text. Please contact the Clinical Pharmacist for questions. Specimen Blood Performing Organization Address City/State/ZIP Code P shane Number [facility] [address] [place] [address] documented in this encounter Visit Diagnoses Diagnosis Chronic heart failure with preserved ej ection fraction (HCC) - Primary Severe tricuspid regurgitation Diseases of tricuspid valve RVF (right ventricular failure) (HCC) Congestive heart failure, unspecified Paroxysmal atrial fibrillation (HCC) Atrial fibrillation Cirrhosis of liver with ascites, unspec ified hepatic cirrhosis type (HCC) Urinary tract infection without hematur ia, site unspecified Chronic anticoagulation Long-term (current) use of anticoagulan ts Acute on chronic heart failure with pre served ejection fraction (HCC) Aortic valve prosthesis present Heart valve replaced by other means documented in this encounter Discontinued Medications Start Date End Date Medication Sig Discontinue Reason 12/04/2020 12/22/2020 bumetanide (BUMEX) 1 mg Take five tabletIndications: Acute tablets by on chronic heart failure mouth twice with preserved ejection daily. fraction (HCC), Aortic valve prosthesis present documented as of this encounter Historical Medications * This list may reflect changes made after this encounter. Start Date End Date Medication Sig Dispensed Refills amoxicillin (AMOXIL) 500 Take 500 mg 0 mg capsule by mouth every 8 hours. 12/15/2020 HYDROcodone/acetaminophen Take 1 tablet 0 (NORCO) 5/325 mg tablet by mouth every 4-6 hours as needed added in this encounter Orders First Ordered [...]
--- OUTSIDE RECORDS SUMMARY | 2020-12-22 13:35 | XMS REPORT | Encounter Summary ---
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 [facility] On track (10/23/2020 Yes [place], 1:06 [...]
--- OUTSIDE RECORDS SUMMARY | 2020-12-22 13:35 | XMS REPORT | Encounter Summary ---
Author Author [facility] Organization [facility] Address Unknown Phone Unavailable Care Team Providers Care Change Control Analyst Name Role Phone Isaac, Garfield OLVERA PCP Riley Hopson MD 3 Reason for Visit * Reason Comments Anticoagulation INR 4.7 Encounter Details Care Team Description Date Type Department Susan Palomino RN Anticoagulation (INR 4.7) 12/18/2020 Anticoagulation Cardiology: [facility] [address] [place] [address] [address], [address] [place] [address] Social History Date Tobacco Use Types Packs/Day Years Used Never Smoker Smokeless Tobacco: Never Used Comments Alcohol Use Standard Drinks/Week Not Currently 0 (1 standard drink = 0.6 o z pure alcohol) Sex Assigned at Date Recorded Female 06/01/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 She tells me that she had her INR drawn at there PC P visit today and they advised her to hold warfarin today and tomorrow then resu me plan. Used CareEverywhere and confirmed INR today was 4.7. Instructed patient to hold tonight then take 2 mg tomorrow recheck on Friday. She is agreeable to plan. Advised pt that she should only follow Dr. Longo's office instructions on her warfarin and INR checks. Patient voiced understanding to this. Patient re ports she is to start amoxicillin tonight. At this time patient has no further q uestions or concerns. documented in this encounter Plan of Treatment Not on filedocumented as of this encounter Goals Goal Patient Associated Recent Progress Patient-Stat Aut hor Goal Type Problems ed? [facility] On track (10/23/2020 Yes [place], 1:06 PM CDT) CHRYSTAL Singh documented as of this encounter Procedures Comments Procedure Name Priority Date/Time Associated Diag nosis HOME INR Routine 12/18/2020 documented in this encounter Results * HOME INR (12/18/2020) INR Home 4.7Comment: Result from CareEverywhere Specimen documented in this encounter Visit Diagnoses Diagnosis [...]
--- OUTSIDE RECORDS SUMMARY | 2020-12-22 13:35 | XMS REPORT | Encounter Summary ---
Author Author [facility] Organization [facility] Address Unknown Phone Unavailable Care Team Providers Care Stocking Inspector Name Role Phone Self, Garfield OLVERA PCP Riley Hopson MD 3 Gino Pandya APRN-COOPER HELPER 7 Reason for Visit * Reason Onset Date Comments Resource Information 12/21/2020 Encounter Details Care Team Description Date Type Department Caitlin Sparks Resource Information 12/21/2020 Telephone Cardiology: [facility] [address] [place] [address] [address], [address] [place] [address] Social History Date Tobacco Use Types Packs/Day Years Used Never Smoker Smokeless Tobacco: Never Used Comments Alcohol Use Standard Drinks/Week Not Currently 0 (1 standard drink = 0.6 o z pure alcohol) Sex Assigned at Date Recorded Female 06/01/2020 1:44 PM ART LIBRARIAN Date Recorded COVID-19 Exposure Response 12/20/2020 11:28 [...] encounter Miscellaneous Notes * Telephone Encounter - Caitlin Sparks - 12/21/2020 3:23 PM CDT Progress Note REGI Machine Assembler Supervisor Plan: Provide resources for Life Alert, per request of Gino Pandya NP. Intervention: SW made out bound call to patient and self-disclosed name and role in clinic. Patient noted she was considering getting a Life Alert and inquired if there were any discounts or resources through [facility]. SW shared with patient t hat the [facility] Agency on Aging has resources and provided contact information for patient's local organizations, [facility] on Aging. No additio nal needs were identified at this time. Caitlin Sparks [facility] Out[facility] Heart Failure Cold Roll Operator Office: [phone] documented in this encounter Plan of Treatment Not on filedocumented as of this encounter Goals Goal Patient Associated Recent Progress Patient-Stat Aut hor Goal Type Problems ed? [facility] On track (10/23/2020 Yes [place], 1:06 PM CDT) CHRYSTAL Singh documented as of this encounter Visit Diagnoses Not on filedocumented in this encounter Additional Health Concerns Assessment Noted Time A fall risk assessment has been completed for the pat ient 12/20/2020 1:50 PM CDT PHQ-2 Depression Total Score: 2 12/07/2020 3:18 PM CDT documented as of this encounter
--- OUTSIDE RECORDS SUMMARY | 2020-12-22 13:35 | XMS REPORT | Encounter Summary ---
Author Author [facility] Organization [facility] Address Unknown Phone Unavailable Care Team Providers Care Fund Development Manager Name Role Phone Self, Garfield OLVERA PCP Riley Hopson MD 3 Reason for Visit * Reason Onset Date Comments Medication Follow-up 12/08/2020 Encounter Details Care Team Description Date Type Department Josi Purvis BSN Medication Follow-up 12/08/2020 Telephone Cardiology: [facility] [address] [place] [address] [address], [address] [place] [address] Social History Date Tobacco Use Types Packs/Day Years Used Never Smoker Smokeless Tobacco: Never Used Comments Alcohol Use Standard Drinks/Week Not Currently 0 (1 standard drink = 0.6 o z pure alcohol) Sex Assigned at Date Recorded Female 06/01/2020 1:44 PM VIRTUAL CUSTOMER ASSISTANT Date Recorded COVID-19 Exposure Response 12/07/2020 2:59 [...] original note were not included. Basilia Gaitan, GAS FITTER-INTERNATIONAL RELATIONS TEACHER Josi Purvis BSN Caller: Unspecified (3 days [...] Problems ed? [place] On track (10/23/2020 Yes [place], 1:06 PM [...]
--- OUTSIDE RECORDS SUMMARY | 2020-12-22 13:35 | XMS REPORT | Encounter Summary ---
Author Author [facility] Organization [facility] Address Unknown Phone Unavailable Care Team Providers Care Fish Receiver Name Role Phone Self, Garfield OLVERA PCP Riley Hopson MD 3 Reason for Referral * Radiology Services (Routine) Referred By Contact Referred To Contact Status Reason Specialty Diagnoses / Procedures Jeanette Garcia APRN-TWYLA [address] [address] New Request Radiology Diagnoses Other cirrhosis of liver (HCC) P rocedures US ABDOMEN LIMITED Electronically signed by Jeanette Garcia APRN-TWYLA at Encounter Details Care Team Description Date Type Department Allison Marti MD 4000 [facility] [id number] [place] [address] [phone] Jeanette Garcia APRN-NP [address] [address] [phone] Other cirrhosis of liver (HCC) (Primary Dx) 12/07/2020 Office Visit Transplant: Main [facility], [facility] 4000 [facility] [address] 1, [address] [place] [address] Social History Date Tobacco Use Types Packs/Day Years Used Never Smoker Smokeless Tobacco: Never Used Comments Alcohol Use Standard Drinks/Week Not Currently 0 (1 standard drink = 0.6 o z pure alcohol) Sex Assigned at Date Recorded Female 06/01/2020 1:44 PM 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 Please call the office at [phone] if you have any questions or concerns. [...]
--- OUTSIDE RECORDS SUMMARY | 2020-12-22 13:35 | XMS REPORT | Encounter Summary ---
Author Author [facility] Organization [facility] Address Unknown Phone Unavailable Care Team Providers Care Hay Sorter Name Role Phone Self, Garfield OLVERA PCP Riley Hopson MD 3 Reason for Visit * Reason Comments Labs Only INR Encounter Details Care Team Description Date Type Department Jc, Beckie Labs Only (INR) 12/14/2020 Documentation Cardiology: [facility] 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 [facility] On track (10/23/2020 Yes Hooker, 1:06 PM CDT) CHRYSTAL Singh documented as of this encounter Procedures Comments Procedure Name Priority Date/Time Associated Diag nosis PROTIME INR (PT) Routine 12/14/2020 Chronic antic oagulation documented in this encounter Results * PROTIME INR (PT) (12/14/2020) INR 3.3 (H) 0.8 - 1.4 [facility] Specimen Blood - Blood Narrative Performed At This result has an attachment that is n ot available. Performing Organization Address City/State/ZIP Code P shane Number [facility] [address] [place] [address] documented in this encounter Visit Diagnoses Diagnosis Chronic anticoagulation Long-term (current) use of anticoagulan ts documented in this encounter Additional Health Concerns Assessment Noted Time A fall risk assessment has been completed for the pat ient 12/12/2020 2:28 PM CDT PHQ-2 Depression Total Score: 2 12/07/2020 3:18 PM CDT documented as of this encounter
--- OUTSIDE RECORDS SUMMARY | 2020-12-22 13:35 | XMS REPORT | Encounter Summary ---
Author Author [facility] Organization [facility] Address Unknown Phone Unavailable Care Team Providers Care Processing Mgr Name Role Phone Self, Garfield OLVERA PCP Riley Hopson MD 3 Reason for Visit * Reason Onset Date Comments DME Order 12/13/2020 Abdominal Binder Encounter Details Care Team Description Date Type Department Rosa Rojas RN DME Order (Abdominal Binder) 12/13/2020 Telephone Cardiology: [facility] [address] [place] [address] 1, [address] [place] [address] Social History Date Tobacco Use Types Packs/Day Years Used Never Smoker Smokeless Tobacco: Never Used Comments Alcohol Use Standard Drinks/Week Not Currently 0 (1 standard drink = 0.6 o z pure alcohol) Sex Assigned at Date Recorded Female 06/01/2020 1:44 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 I was not sure how to do this - for ascitics. Reviewed chart Called patient's provider [facility]) [phone] Fax) [phone] Spoke to nurse Marie, she stated she would contact her SW and they would get an abdominal binder ordered for her. If they need an order from our provider I gave them my number to call back. No additional case management needs at this time. Rosa Rojas RN-BSN Nurse Poultry HangerSlurry Control Tender [facility] Ext. [phone] documented in this encounter Plan of Treatment Not on filedocumented as of this encounter Goals Goal Patient Associated Recent Progress Patient-Stat Aut hor Goal Type Problems ed? [facility] On track (10/23/2020 Yes [...]
--- OUTSIDE RECORDS SUMMARY | 2020-12-22 13:35 | XMS REPORT | Encounter Summary ---
Author Author [facility] Organization [facility] Address Unknown Phone Unavailable Care Team Providers Care Complaint Specialist Name Role Phone Self, Garfield OLVERA PCP Riley Hopson MD 3 Reason for Visit * Reason Comments Labs Only Encounter Details Care Team Description Date Type Department Kathryn Barbosa MA Labs Only 12/11/2020 Documentation Cardiology: [facility] 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 [facility] On track (10/23/2020 Yes Sheldon, 1:06 [...] P shane Number [facility] [address] [place] [address] documented in this encounter Visit Diagnoses Diagnosis Paroxysmal atrial fibrillation (HCC) Atrial fibrillation documented in this encounter Additional Health Concerns Assessment Noted Time A fall risk assessment has been completed for the pat ient 12/07/2020 3:19 PM CDT PHQ-2 Depression Total Score: 2 12/07/2020 3:18 PM CDT documented as of this encounter
--- OUTSIDE RECORDS SUMMARY | 2020-12-22 13:35 | XMS REPORT | Encounter Summary ---
Author Author [facility] Organization [facility] Address Unknown Phone Unavailable Care Team Providers Care Edi Analyst Name Role Phone Self, Garfield OLVERA PCP Riley Hopson MD 3 Gino Pandya APRN-SPORTS ANALYST 7 Reason for Visit * Reason Comments Anticoagulation INR Goal change to 1.5-2.0 Encounter Details Care Team Description Date Type Department Sherin Mata BSN Anticoagulation (INR Goal change to 1.5- 2.0) 12/20/2020 Anticoagulation Cardiology: [facility] [address] [place] [address] 1, [address] [place] [address] Social History Date Tobacco Use Types Packs/Day Years Used Never Smoker Smokeless Tobacco: Never Used Comments Alcohol Use Standard Drinks/Week Not Currently 0 (1 standard drink = 0.6 o z pure alcohol) Sex Assigned at Date Recorded Female 06/01/2020 1:44 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 Orders received and implemented as well as written documentation provided to pt with follow-up labs and medication changes. documented in this encounter Plan of Treatment [...]
--- OUTSIDE RECORDS SUMMARY | 2020-12-22 13:35 | XMS REPORT | Encounter Summary ---
Author Author [facility] Organization [facility] Address Unknown Phone Unavailable Care Team Providers Care Name Role Phone Self, Garfield OLVERA PCP Riley Hopson MD 3 Gino Pandya APRN-SUPERVISOR ORDNANCE TRUCK INSTALLATION 7 Reason for Visit * Reason Comments Labs Only Encounter Details Care Team Description Date Type Department Kathryn Barbosa MA Labs Only 12/22/2020 Documentation Cardiology: [facility] 4000 [facility] [address], [address] [place] [address] Social History Date Tobacco Use Types Packs/Day Years Used Never Smoker Smokeless Tobacco: Never Used Comments Alcohol Use Standard Drinks/Week Not Currently 0 (1 standard drink = 0.6 o z pure alcohol) Sex Assigned at Date Recorded Female 06/01/2020 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 [facility] On track (10/23/2020 Yes Sheldon, 1:06 PM [...] heart failure with preserved ejection fraction (HCC) BASIC METABOLIC PANEL Routine 12/22/2020 Chronic heart failure with preserved ejection fraction (HCC) Severe tricuspid regurgitation RVF (right ventricular failure) (HCC) Paroxysmal atrial fibrillation (HCC) Cirrhosis of liver with ascites, unspecified hepatic cirrhosis type (HCC) Urinary tract infection without hematuria, site unspecified Chronic anticoagulation documented in this encounter Results * PROTIME INR (PT) (12/22/2020) INR 3.4 (H) 0.8 - 1.4 [facility] Protime 34 (H) 12.2 - 14.7 [facility] Specimen Blood - Blood Narrative Performed At This result has an attachment that is n ot available. Performing Organization Address City/State/ZIP Code P shane Number [facility] [address] [place] [address] * BASIC METABOLIC PANEL (12/22/2020) Sodium 122 [...] [facility] eGFR [facility] Guinean Anion Gap 12 [facility] BUN/Creatinine 22 [facility] Ratio Specimen Blood - Blood Performing Organization Address City/State/ZIP Code P shane Number [facility] [address] [place] [address] * CBC (12/22/2020) White Blood 23.9 (H) [...] Specimen Blood - Blood Performing Organization Address City/[facility]/ZIP Code P shane Number [facility] [address] [place] [address] documented in this encounter Visit Diagnoses Diagnosis RVF (right ventricular failure) (HCC) Congestive heart failure, unspecified Chronic heart failure with preserved ej ection fraction (HCC) Severe tricuspid regurgitation Diseases of tricuspid valve Paroxysmal atrial fibrillation (HCC) Atrial fibrillation Cirrhosis [...]
--- OUTSIDE RECORDS SUMMARY | 2020-12-22 13:35 | XMS REPORT | Encounter Summary ---
Author Author [facility] Organization [facility] Address Unknown Phone Unavailable Care Team Providers Care Fashion Supervisor Name Role Phone Self, Garfield OLVERA PCP Riley Hopson MD 3 Reason for Visit * Reason Onset Date Comments Lab Request 12/11/2020 Encounter Details Care Team Description Date Type Department Josi Purvis BSN Lab Request 12/11/2020 Telephone Cardiology: [facility] [address] [place] [address] [address], [address] [place] [address] Social History Date Tobacco Use Types Packs/Day Years Used Never Smoker Smokeless Tobacco: Never Used Comments Alcohol Use Standard Drinks/Week Not Currently 0 (1 standard drink = 0.6 o z pure alcohol) Sex Assigned at Date Recorded Female 06/01/2020 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 Per Lion will [...]
--- OUTSIDE RECORDS SUMMARY | 2020-12-22 13:35 | XMS REPORT | Encounter Summary ---
Author Author [facility] Organization [facility] Address Unknown Phone Unavailable Care Team Providers Care Custom Applicator Name Role Phone Self, Garfield OLVERA PCP Riley Hopson MD 3 Reason for Visit * Reason Onset Date Comments Medication Question About 12/18/2020 Anticoagulation Therapy Encounter Details Care Team Description Date Type Department Susan Palomino RN Medication Question About Anticoagulatio n Therapy 12/18/2020 Telephone Cardiology: [facility] [address] [place] [address] [address], [address] [place] [address] Social History Date Tobacco Use Types Packs/Day Years Used Never Smoker Smokeless Tobacco: Never Used Comments Alcohol Use Standard Drinks/Week Not Currently 0 (1 standard drink = 0.6 o z pure alcohol) Sex Assigned at Date Recorded Female 06/01/2020 1:44 PM 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 AND 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 Date Recorded COVID-19 Exposure Response 12/12/2020 2:17 [...] Telephone Encounter - Susan Palomino RN - 12/18/2020 5:23 PM CDT See Anticoag encounter dated 12/18 * Telephone Encounter - Susan Palomino RN - 12/18/2020 4:43 PM CDT ----- Message from Elizabeth Banks RN sent at 12/18/2020 4:37 PM CDT ----- Regarding: FW: Prescription Question Contact: ----- Message ----- From: Zaria Paulson Sent: 12/18/2020 3:38 PM CDT To: Cvm Nurse Triage [facility] Subject: Prescription Question My doctor here took it in his office documented in this encounter Plan of Treatment Not on filedocumented as of this encounter Goals Goal Patient Associated Recent Progress Patient-Stat Aut hor Goal Type Problems ed? [facility] On track (10/23/2020 Yes Sheldon, [...]
--- OUTSIDE RECORDS SUMMARY | 2020-12-22 13:35 | XMS REPORT | Encounter Summary ---
Author Author [facility] Organization [facility] Address Unknown Phone Unavailable Care Team Providers Care Press Tender Smoke Signal Name Role Phone Self, Garfield OLVERA PCP Riley Hopson MD 3 Reason for Visit * Reason Comments Erroneous encounter-disregard Encounter Details Care Team Description Date Type Department Susan Palomino RN Erroneous encounter-disregard 12/18/2020 Anticoagulation Cardiology: [facility] [address] [place] [address] 1, [address] [place] [address] Social History Date Tobacco Use Types Packs/Day Years Used Never Smoker Smokeless Tobacco: Never Used Comments Alcohol Use Standard Drinks/Week Not Currently 0 (1 standard drink = 0.6 o z pure alcohol) Sex Assigned at Date Recorded Female 06/01/2020 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
--- OUTSIDE RECORDS SUMMARY | 2020-12-22 13:35 | XMS REPORT | Encounter Summary ---
Author Author [facility] Organization [facility] Address Unknown Phone Unavailable Care Team Providers Care Poultry Husbandry Worker Name Role Phone Self, Garfield OLVERA PCP Riley Hopson MD 3 Reason for Visit * Reason Comments Anticoagulation INR 2.0 Encounter Details Care Team Description Date Type Department Helen Waggoner RN Anticoagulation (INR 2.0) 12/11/2020 Anticoagulation Cardiology: [facility] [address] [place] [address] 1, [address] [place] [address] Social History Date Tobacco Use Types Packs/Day Years Used Never Smoker Smokeless Tobacco: Never Used Comments Alcohol Use Standard Drinks/Week Not Currently 0 (1 standard drink = 0.6 o z pure alcohol) Sex Assigned at Date Recorded Female 06/01/2020 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 [facility] On track (10/23/2020 Yes Sheldon, [...]
--- OUTSIDE RECORDS SUMMARY | 2020-12-22 13:35 | XMS REPORT | Encounter Summary ---
Author Author [facility] Organization [facility] Address Unknown Phone Unavailable Care Team Providers Care Automation Qa Lead Name Role Phone Self, Garfield OLVERA PCP Riley Hopson MD 3 Reason for Referral * Consult, Test & Treat (Routine) Referred By Contact Referred To Contact Status Reason Specialty Diagnoses / Procedures Basilia Gaitan APRN-NP [id number] [place] [address] Pending Review Procedures REQUEST FOR CARDIOLOGY APPOINTMENT Electronically signed by Basilia CATALAN at * Consult, Test & Treat (Routine) Referred By Contact Referred To Contact Status Reason Specialty Diagnoses / Procedures Basilia Gaitan APRN-NP [address] [address] Pending Review Procedures REQUEST FOR CARDIOLOGY APPOINTMENT Electronically signed by Basilia CATALAN at * Radiology Services (Routine) Referred By Contact Referred To Contact Status Reason Specialty Diagnoses / Procedures Basilia Gaitan APRN-NP 4000 [facility] [address] [place] [address] [facility] 4000 [facility] [address], [address] [place] [address] Authorized Radiology Diagnoses Cirrhosis of liver with ascites, unspecified hepatic cirrhosis type (HCC) P rocedures IR PARACENTESIS THERAPEUTIC HI ABDOM PARACENTESIS DX/THER W/IMAGING GUIDANCE Electronically signed by Basilia CATALAN at Reason for Visit * Reason Comments Post-hospital Follow Up * Consultation (Discharge Pending) Referred By Contact Referred To Contact Status Reason Specialty Diagnoses / Procedures Diya Mena MD 4000 [place] [address] [facility] 4000 [facility] [address], [address] [place] [address] Pending Review Cardiology Procedures APPOINTMENT REQUEST: CARDIOLOGY HEART FAILURE Encounter Details Care Team Description Date Type Department Basilia Gaitan APRN-NP 4000 [facility] [id number] [place], [place] [id number] Post-hospital Follow Up 12/12/2020 Office Visit Cardiology: [facility] [address] [place] [address] Social History Date Tobacco Use Types Packs/Day Years Used Never Smoker Smokeless Tobacco: Never Used Tobacco Cessation: Counseling Given: No Comments Alcohol Use Standard Drinks/Week Not Currently 0 (1 standard drink = 0.6 o z pure alcohol) Sex Assigned at Date Recorded Female 06/01/2020 1:44 PM ANALYTICAL CONSULTANT Date Recorded COVID-19 Exposure Response 12/12/2020 2:17 [...] Care the same day. 3. Please call [phone] to schedule your Peritoneocentesis at either the [facility] or [facility] For up to date information on the [...] message for the heart failure nurses at [phone]. For urgent issues after hours, on the weekends or holidays, please call to be connected with the nurse or doctor leasing consultant. To schedule or change an appointment call [phone]. MD Basilia Jeffers APRN Nikki Mattison, APRN Maura Janes, RN [facility] Your Heart Failure Symptom Awareness and Action [...] symptoms, please call the heart failure nurses: [phone] Increased shortness of breath with activity Weight gain of 3 pounds in one day or 5 pounds in a week Increased swelling in your ankles or legs Increased swelling in your stomach Increasing fatigue You may need an adjustment of your medications. Red Zone These are urgent symptoms. Please call the heart failure nurses: [phone] Sh ortness of breath at rest or waking up at night feeling short of breath or cough ing Increased number of pillows used or needing to sit upright to sleep Chest tightness at rest Dizziness, lightheadedness or feeling faint You need to schedule an appointment Emergency Zone - call 512 Worsening chest tightness or pain that is [...] this encounter Progress Notes * Basilia Gaitan, RYAN-JUMPBASTING MACHINE OPERATOR - 12/12/2020 2:00 PM CDT Date of [...] n lymphoma). She was recently hospitalized at [facility] with GI bleed and nontraumatic rectus hematoma. She was transferred from [facility] for left rectus muscle hematoma and active [...] reduced dose of B umex compared to OPTICIAN APPRENTICE dosing. She was followed closely in heart failure clinic and readmitted to [facility] from heart failure clinic on 11/29/2020 with [...] she be scheduled with the palliative care JUMPBASTING MACHINE OPERATOR, Gino Pandya, same day. She has been encouraged to contact us prior to the next appointment w ith any questions, concerns, or worsening symptoms. Thank you for allowing me to participate in the care of this patient. If you hav e any questions please do not hesitate to contact our office. RACHELL Pearson-BC, MSN, CHFN | CVM Advance Practice Provider Heart Failure RASALAN Coordinator [facility] | | [email or web address] [address], [address], [place], [place] [address] Ramo Lamb Total Time [...] THERAPEUTIC ascites, unspecified hepatic cirrhosis type (HCC) Ordered: 12/12/2020 POC BASIC METABOLIC PANEL Point of Care STAT Acut e on chronic right (BMP) Testing heart failure (HCC) documented as of this encounter Goals Goal Patient Associated Recent Progress Patient-Stat Aut hor Goal Type Problems ed? [facility] On track (10/23/2020 Yes Paulding, 1:06 PM CDT) CHRYSTAL Singh documented as of this encounter Procedures Comments Procedure Name Priority Date/Time Associated Diag nosis HC CHEM 8 PANEL, POC 12/12/2020 3:25 PM CDT documented in this encounter Results * DIGOXIN LEVEL (12/20/2020 12:57 PM CDT) Digoxin 1.5 (H) 0.5 - 1.0 NG/ML [facility] Specimen Blood Performing Organization Address City/[facility] Code P shane Number MAIN LAB [address] [place] [address] * PROTIME INR (PT) (12/14/2020) INR 3.3 (H) 0.8 - 1.4 [facility] Specimen Blood - Blood Narrative Performed At This result has an attachment that is n ot available. Performing Organization Address [facility] P shane Number MAIN LAB [address] [place] [address] * POC BASIC METABOLIC PANEL (BMP) (12/12/2020 [...] Number [facility] [address] [place] [address] documented in this encounter Visit Diagnoses Diagnosis [...]
--- OUTSIDE RECORDS SUMMARY | 2020-12-22 13:35 | XMS REPORT | Encounter Summary ---
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 [facility] On track (10/23/2020 Yes Sheldon, 1:06 [...]
--- OUTSIDE RECORDS SUMMARY | 2020-12-22 13:35 | XMS REPORT | Encounter Summary ---
Author Author [facility] Organization [facility] Address Unknown Phone Unavailable Care Team Providers Care Trim Machine Operator Name Role Phone Self, Garfield OLVERA PCP Riley Hopson MD 3 Reason for Visit * Reason Comments Anticoagulation INR 3.3 Encounter Details Care Team Description Date Type Department Arlene Rush RN Anticoagulation (INR 3.3 ) 12/14/2020 Anticoagulation Cardiology: [facility] [place], [address] [place] [address]. [address], [address] [place] [address] Social History Date Tobacco Use Types Packs/Day Years Used Never Smoker Smokeless Tobacco: Never Used Comments Alcohol Use Standard Drinks/Week Not Currently 0 (1 standard drink = 0.6 o z pure alcohol) Sex Assigned at Date Recorded Female 06/01/2020 1:44 PM ENERGY EFFICIENCY FINANCE MANAGER Date Recorded COVID-19 Exposure Response 12/12/2020 2:17 [...] Patient-Stat Aut hor Goal Type Problems ed? [facility] On track (10/23/2020 Yes Sheldon, [...]
--- OUTSIDE RECORDS SUMMARY | 2020-12-22 13:35 | XMS REPORT | Encounter Summary ---
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 [facility] On track (10/23/2020 Yes Sheldon, 1:06 PM [...]
--- OUTSIDE RECORDS SUMMARY | 2020-12-22 13:35 | XMS REPORT | Encounter Summary ---
Author Author [facility] Organization [facility] Address Unknown Phone Unavailable Care Team Providers Care Sr Account Executive Name Role Phone Self, Garfield OLVEAR PCP Riley Hopson MD 3 Gino Pandya NETWORKING ADMINISTRATOR-PROPULSION GENERATOR REPAIRER 7 Encounter Details Care Team Description Date Type Department Basilia Gaitan, NETWORKING ADMINISTRATOR-PROPULSION GENERATOR REPAIRER [address] [facility] [id number] [place], [place] [id number] Arrived 12/20/2020 Hospital Laboratory: Main [facility], Encounter [facility] [address] [facility] [address] [place] [address] Social History Date Tobacco Use Types Packs/Day Years Used Never Smoker Smokeless Tobacco: Never Used Comments Alcohol Use Standard Drinks/Week Not Currently 0 (1 standard drink = 0.6 o z pure alcohol) Sex Assigned at Date Recorded 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 [facility] On track (10/23/2020 Yes Sheldon, 1:06 PM CDT) CHRYSTAL Singh documented as of this encounter Procedures Comments Procedure Name Priority Date/Time Associated Diag nosis HC PT(INR) Routine 12/20/2020 Paroxysmal atri al 12:57 PM CDT fibrillation (HCC) HC CBC,AUTOMATED Routine 12/20/2020 Chronic antic oagulation 12:57 PM CDT HC AMMONIA Routine 12/20/2020 Cirrhosis of li minal with 12:57 PM CDT ascites, unspecified hepatic cirrhosis type (HCC) HC DIGOXIN Routine 12/20/2020 Acute on chroni c right 12:57 PM CDT heart failure (HCC) Acute on chronic diastolic (congestive) heart failure (HCC) HC COMPREHENSIVE Routine 12/20/2020 Chronic heart failure METABOLIC PANEL 12:57 PM CDT with preserved ejec tion fraction (HCC) documented in this encounter Results * DIGOXIN LEVEL (12/20/2020 12:57 PM CDT) Digoxin 1.5 (H) 0.5 - 1.0 NG/ML [facility] Specimen Blood Performing Organization Address City/State/ZIP Code P shane Number [facility] [address] [place] [address] * CBC (12/20/2020 12:57 PM CDT) White [...] MAIN LAB Specimen Blood Performing Organization Address City/[facility]/ZIP Code P shane Number [facility] [address] [place] [id number] * AMMONIA (12/20/2020 12:57 PM CDT) Ammonia 32 9 - 35 MCMOL/L [facility] Specimen Blood Performing Organization Address City/[facility]/ZIP Code P shane Number [facility] [address] [place] [address] * PROTIME INR (PT) (12/20/2020 12:57 PM CDT) INR 6.4 (HH) 0.8 - 1.2 [facility] Comment: CRITICAL VALUE CALLED TO AND READ BACK BY/TIME/TECH CHRYSTAL FRANCISCO at 12/20/2020 13:59:46 by [id number] Specimen Blood Performing Organization Address [facility]/ZIP Code P shane Number [facility] [address] [place] [address] * COMPREHENSIVE METABOLIC PANEL (12/20/2020 12:57 PM [...] (L) >60 mL/min [facility] Comment: [place] The eGFR is not validated f or use in drug dosing adjustments. Continue to use estimated creatinine clearance per dosing reference text. Please contact the Clinical Pharmacist for questions. eGFR 56 (L) >60 mL/min [facility] [place] Comment: The eGFR is not validated for use in drug dosing adjustments. Continue to use estimated creatinine clearance per dosing reference text. Please contact the Clinical Pharmacist for questions. Specimen Blood Performing Organization Address City/State/ZIP Code P shane Number [facility] [address] [place] [address] documented in this encounter Visit Diagnoses Diagnosis Chronic heart failure with preserved ej ection fraction (HCC) Paroxysmal atrial fibrillation (HCC) Atrial fibrillation Cirrhosis of liver with ascites, unspec ified hepatic cirrhosis type (HCC) Chronic anticoagulation Long-term (current) use of anticoagulan ts Acute on chronic heart failure with pre served ejection fraction (HCC) Acute on chronic right heart failure (H CC) Acute on chronic diastolic (congestive) heart failure (HCC) documented in this encounter Orders First Ordered Date Lab Orders Without Results Count Last Ordere d Date PROTIME INR (PT) 2 12/20/2020 documented in this encounter Additional Health Concerns Assessment Noted Time A fall risk assessment has been completed for the pat ient 12/20/2020 1:50 PM CDT PHQ-2 Depression Total Score: 2 12/07/2020 3:18 PM CDT documented as of this encounter
--- OUTSIDE RECORDS SUMMARY | 2020-12-22 13:35 | XMS REPORT | Encounter Summary ---
Author Author [facility] Organization [facility] Address Unknown Phone Unavailable Care Team Providers Care Vacuum System Tester Name Role Phone Self, Garfield OLVERA PCP Riley Hopson MD 3 Gino Pandya REVIEW CONSULTANT-PERIANESTHESIA NURSE 7 Reason for Referral * Radiology Services (Routine) Referred By Contact Referred To Contact Status Reason Specialty Diagnoses / Procedures Basilia Gaitan, REVIEW CONSULTANT-PERIANESTHESIA NURSE [address] [facility] [id number] [place] [address] Bh2 Ir [address] [facility] [address] [place] [address] Authorized Radiology Diagnoses Other ascites P rocedures IR PARACENTESIS THERAPEUTIC Electronically signed by Basilia Gaitan REVIEW CONSULTANT-PERIANESTHESIA NURSE at Encounter Details Care Team Description Date Type Department Summer Du REVIEW CONSULTANT-PERIANESTHESIA NURSE [address] [facility] [address] [place] [address] [phone] Other ascites (Primary Dx) 12/20/2020 Orders Only Imaging: [facility] [address] [place] [address] Social History Date Tobacco Use Types Packs/Day Years Used Never Smoker Smokeless Tobacco: Never Used Comments Alcohol Use Standard Drinks/Week Not Currently 0 (1 standard drink = 0.6 o z pure alcohol) Sex Assigned at Date Recorded 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 [facility] On track (10/23/2020 Yes Sheldon, 1:06 PM CDT) CHRYSTAL Singh documented as of this encounter Visit Diagnoses Diagnosis Other ascites - Primary documented in this encounter Additional Health Concerns Assessment Noted Time A fall risk assessment has been completed for the pat ient 12/20/2020 1:50 PM CDT PHQ-2 Depression Total Score: 2 12/07/2020 3:18 PM CDT documented as of this encounter
--- OUTSIDE RECORDS SUMMARY | 2020-12-22 13:36 | XMS REPORT | Encounter Summary ---
Author Author [facility] Organization [facility] Address Unknown Phone Unavailable Care Team Providers Care Metal Spinner Name Role Phone Self, Garfield OLVERA PCP Riley Hopson MD 3 Reason for Visit * Auth/Cert Referred By Contact Referred To Contact Status Reason Specialty Diagnoses / Procedures Diagnoses Acute on chronic heart failure, unspecified heart failure type (HCC) acute heart failure exacerbation Encounter Details Care Team Description Date Type Department Basilia Gaitan, MD SENIOR RESEARCH SCIENTIST-EXECUTIVE CHEF ASSISTANT [address] [facility] [id number] [place] [address] [phone] 11/29/2020 [facility] [address] [address] Social History Date Tobacco Use Types Packs/Day Years Used Never Smoker Smokeless Tobacco: Never Used Comments Alcohol Use Standard Drinks/Week Not Currently 0 (1 standard drink = 0.6 o z pure alcohol) Sex Assigned at Date Recorded Female 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 fraction (HCC), Aortic valve prosthesis present 11/24/2020 [...] Patient-Stat Aut hor Goal Type Problems ed? [facility] On track (10/23/2020 Yes Sheldon, 1:06 [...] Specimen Performing Organization Address City/[facility] Code P shane Number [facility] [address] [place] [address] * MAGNESIUM (11/29/2020 10:40 AM CDT) Magnesium 1.6 1.6 - 2.6 mg/dL [facility] Specimen Performing Organization Address City/[facility] P shane Number [facility] [address] [place] [address] * BASIC METABOLIC PANEL (11/29/2020 10:40 AM [...] (L) >60 mL/min [facility] Comment: [place] The eGFR is not validated f or use in drug dosing adjustments. Continue to use estimated creatinine clearance per dosing reference text. Please contact the Clinical Pharmacist for questions. eGFR >60 >60 mL/min [facility] [place] Comment: The eGFR is not validated for use in drug dosing adjustments. Continue to use estimated creatinine clearance per dosing reference text. Please contact the Clinical Pharmacist for questions. Specimen Blood Performing Organization Address City/State/ZIP Code P shane Number MAIN LAB [address] [place] [address] * CBC AND DIFF (11/29/2020 10:40 AM [...] Basophil Count Specimen Blood Performing Organization Address City/[facility]/ZIP Code P shane Number [facility] [address] [place] [address] * IRON + BINDING CAPACITY + %SAT+ FERRITIN (11/29/2020 10:40 AM CDT) Iron 23 (L) 50 - 160 MCG/DL [facility] Iron 331 270 - 380 MCG/DL [facility] Binding-TIBC % Saturation 7 (L) 28 - 42 % [facility] Ferritin 112 10 - 200 NG/ML [facility] Specimen Blood Performing Organization Address City/[facility] Code P shane Number [facility] [address] [place] [address] * PROTIME INR (PT) (11/29/2020 10:40 AM CDT) INR 4.1 (H) 0.8 - 1.2 [facility] Specimen Blood Performing Organization Address [facility] P shane Number [facility] [address] [place] [address] documented in this encounter Visit Diagnoses Diagnosis [...]
--- OUTSIDE RECORDS SUMMARY | 2020-12-22 13:36 | XMS REPORT | Encounter Summary ---
Author Author [facility] Organization [facility] Address Unknown Phone Unavailable Care Team Providers Care Fruit Thinner Name Role Phone Self, Garfield OLVERA PCP Riley Hopson MD 3 Reason for Referral * Consultation (Discharge Pending) Referred By Contact Referred To Contact Status Reason Specialty Diagnoses / Procedures Diya Fagan MD [address] [place] [address] [address] [address] [facility] [address] [address], [address] [place] [address] Pending Review Cardiology Procedures APPOINTMENT REQUEST: CARDIOLOGY HEART FAILURE Electronically signed by Diya Fagan MD at Reason for Visit * Auth/Cert Referred By Contact Referred To Contact Status Reason Specialty Diagnoses / Procedures Diagnoses Acute on chronic heart failure, unspecified heart failure type (HCC) acute heart failure exacerbation Encounter Details Care Team Description Date Type Department Maggi Atkinson MD [address] [place] [address] [phone] Berna Walton MD [address] [place] [address] [phone] Ja George MD [address] [place] [address] [phone] Diya Fagan MD [address] [place] [address] [phone] Acute on chronic heart failure (HCC) 11/29/2020 Hospital Patient Care Unit H C5: - [facility]counter [facility] 12/04/2020 Care [address] [facility] [address] [place] [id number] Social History Date Tobacco Use Types Packs/Day Years Used Never Smoker Smokeless Tobacco: Never Used Comments Alcohol Use Standard Drinks/Week Not Currently 0 (1 standard drink = 0.6 o z pure alcohol) Sex Assigned at Date Recorded Female 06/01/2020 1:44 PM [employer] MAINTENANCE Date Recorded COVID-19 Exposure Response 11/29/2020 10:38 [...] date: 11/29/2020 Discharge date: 12/04/2020 Discharge Attending: iDya Fagan MD Discharge Summary Completed By: Diya Fagan MD Service: [facility] D- [id number] Reason for hospitalization: Acute on chronic heart [...] AV, torrential TR, markedly elevated CVP - LAWN TECHNICIAN Bumex 3mg BID and spironolactone; increased to [...] > next INR check 12/06 through her [facility] office. Paroxysmal atrial fibrillation - Went into [...] - s/p chemotherapy in 2004 Anxiety/Depression - LAWN TECHNICIAN zoloft, increase to 100mg BID. Items Needing [...] PM Office visit with HOSSEIN Pascal Transplant: [facility] ([facility]) [address] [facility] [address], [address] [facility] [address] Dec 12, 2020 2:00 PM Hospital follow-up visit with HOSSEIN Chavez Cardiology: [facility] (CVM Exam) [address] [facility] [address] Dec 22, 2020 2:[address] UROGRAM (SCHED ONLY) with CT-MOB Imaging, CT: [facility] (MOB Radiology) [address] [facility] [address], [address] [facility] [address] Dec 22, 2020 3:30 PM Procedure with Fernie Abreu MD, UROLOGY PROCEDURE RM 1 Urology: [facility] (Urology) [address], [address] [facility] [id number] Consults, Procedures, Diagnostics, Micro, Pathology Consults: Cardiology [...] ID 11/29/2020 1900 12/04/2020 1317 Full Code [id number] Berna Walton MD [facility] t 11/29/2020 1532 11/29/2020 1859 Full Code [id number] Berna Walton MD Inpatient Only showing the last 2 code statuses. Patient Instructions DIGOXIN LEVEL Standing Status: Future Standing Exp. Date: 12/04/21 Which provider would you like to CC? BASILIA SEQUEIRA [[id number]] Which provider would you like to CC? NITISH STARR [[id number]] Release to patient Immediate BASIC METABOLIC PANEL Standing Status: Future Standing Exp. Date: 12/04/21 Which provider would you like to CC? BASILIA SEQUEIRA [[id number]] Which provider would you like to CC? NITISH STARR [[id number]] Release to patient Immediate PROTIME INR (PT) Standing Status: Standing Number of Occurrences: 99 Standing Exp. Date: 12/04/21 Please draw level on Friday12/06/20. Please fax it to Dr. Nitish Starr/Basilia Sequeira APRN. Please fax results to: [phone] Release to patient Immediate Cardiac Diet Limiting [...] you can call a dietitia n at [phone]. Activity as Tolerated It is important to [...] or concerns regarding your hospital stay Call [phone]. If yo u have an emergency, do [...] care provider. Discharging attending physician: DIYA FAGAN [[id number]] Warfarin Information WARFARIN INFORMATION Notify your [facility] office at discharge that you have an [...] stopping any medicat ions. This includes prescription, fkcc-zae-okboabl, natural supplements, vitami ns, and minerals. Many [...] fax results to Dr. Starr/ Basilia Sequeira [phone] Digoxin level, BMP 12/14/2020 fax results to [...] Answer Comment Attending Name/Contact [facility] Di[facility] [phone] / [phone] PCP Name/Contact Dr. Garfield Gray [phone]/ [phone] Specialist Name/Contact Dr. Katharine SPARKS [facility] Cardiology Heart Failure Home Health to Follow as previous Signed: Diya Fagan MD 12/04/2020 cc: Primary Care Physician: Garfield Gray Verified Referring physicians: Garfield Gray MD Additional provider(s): Did we miss something? If additional records are needed, please fax a request on office letterhead to [phone]. Please include the patient's name, date of b irth, fax number and type of information needed. Additional request can be made by email at [email or web address]. For general questions of information about electronic records sharing, call [phone]. documented in this encounter Medications at Time [...] mg tablet tablet by mouth twice daily. 12/06/2020 12/12/2020 digoxin (LANOXIN) 125 mcg [...] fraction (HCC), Aortic valve prosthesis present 12/04/2020 12/22/2020 bumetanide (BUMEX) 1 mg Take [...] AV, torrential TR, markedly elevated CVP - LAWN TECHNICIAN Bumex 3mg BID and spironolactone; increased to [...] prognosis. Mechanical aortic valve -Implanted 2010 - LAWN TECHNICIAN warfarin 4 mg daily - INR 4.1 on admission > Continue Warfarin with lower goal 2.0-2.5 given recent GI bleed (not usual 2.5-3.5 for mechnical valve). (patient reports her goal 1.7-2.0) > next INR check 12/06 through her [facility] office. Paroxysmal atrial fibrillation - Went into [...] - s/p chemotherapy in 2004 Anxiety/Depression - LAWN TECHNICIAN zoloft, increase to 100mg BID. Discharge home today with close follow up with Cardiology. total of 40 minutes spent coordinating patient discharge today. Diya Fagan MD Med Private D, Team Pager [phone] Subjective No events overnight. Patient continues to [...] with non-Hodgkin lymphoma). Patient recently admitted to [facility] 14 days 11/15/2020 wit h GI bleed and nontraumatic rectus hematoma and was previously hospitalized [facility] for GI bleed in setting [...] urology including CT urogram and cystoscopy. Her LAWN TECHNICIAN Bumex was reduced during hospital ization with [...] since admit a nd -1 L overnight. LAWN TECHNICIAN dose was 4 mg p.o. twice daily. [...] illnesses and interplay of other issues. Melissa Newberry, LUCA Available on AMS/Voalte Assessment: Acute on chronic [...] to recent bleeding. Major Complications or Comorbidities ([facility]): acute/ acute on chronic systolic and /or [...] 12/03 bumex 5 mg po bid GDMT LAWN TECHNICIAN Changes BB metoprolol tartrate d/c'd in early [...] IR on 12/01/20 She follows with hepatology. [place] to be secondary to chemotherapy, has had [...] 06/06/2020 Performed by Bao Hernández MD at [facility] COLONOSCOPY DIAGNOSTIC WITH SPECIMEN COLLECTION BY BRUSHING/ WASHING - FLEXI BLE N/A 06/06/2020 Performed by Bao Hernández MD at [facility] ANGIOGRAPHY CORONARY ARTERY WITH RIGHT AND LEFT HEART CATHETERIZATION N/A Performed by Higinio Clarke MD at [facility] POSSIBLE PERCUTANEOUS CORONARY STENT PLACEMENT WITH ANGIOPLASTY N/A Performed by Higinio Clarke MD at [facility] ESOPHAGOGASTRODUODENOSCOPY WITH SPECIMEN COLLECTION BY BRUSHING/ WASHING N/A 10/21/2020 Performed by Cosmo Gomez MD at [facility] SIGMOIDOSCOPY WITH CONTROL OF BLEEDING - FLEXIBLE N/A 10/21/2020 Performed by Cosmo Gomez MD at [facility] SIGMOIDOSCOPY WITH DIRECTED SUBMUCOSAL INJECTION - FLEXIBLE 10/21/2020 Performed by Cosmo Gomez MD at [facility] Family History Problem Relation Age [...] (BUMEX) tablet 5 mg, 5 mg, Oral, BID(-17) [START ON 12/05/2020] digoxin (LANOXIN) tablet 125 [...] AV, torrential TR, markedly elevated CVP - LAWN TECHNICIAN Bumex 3mg BID and spironolactone; increased to [...] assistance. Mechanical aortic valve -Implanted 2010 - LAWN TECHNICIAN warfarin 4 mg daily - INR 4.1 [...] - s/p chemotherapy in 2004 Anxiety/Depression - LAWN TECHNICIAN zoloft, increase to 100mg BID. - try atarax prn for anxiety Fluids: No IVF Electrolytes: Replace Lytes PRN Nutrition: CardiacDiet DVT PPx: SCDs, warfarin Lines/Drains: PIV Code Status: FULL CODE Diya Fagan MD Med Private D, Team Pager [phone] Subjective No events overnight. She continues to [...] (previous on 25 mg daily) and adjust LAWN TECHNICIAN Bumex from 4 up to 5 mg [...] 24 Miguel r Range BP: 98/62 (12/03 114) Temp: 37 C (98.6 F) (12/03 114) Pulse: 100 (12/03 114) Respirations: 18 PER MINUTE (12/03 114) SpO2: 98 % (12/03 114) BP: (92-106)/(43-62) Temp: [36.6 C (97.9 F)-37 [...] 24 hour(s)) BASIC METABOLIC PANEL Collection Time: 12/02/20 1:14 [...] with management of warfarin therapy. Objective: Zaria Paulsno is a 60 y.o. female receiving warfarin [...] no longer be managed by Pharmac joellen Burt PHARMD 12/03/2020 * Anastacio Singh MD [...] O's Anticipate transitioning to oral diuretic tomorrow, LAWN TECHNICIAN Aldactone 25, Bumex 4 twice daily Aldactone [...] 1025) Temp: 36.8 C (98.2 F) (12/02 102) Pulse: 100 (12/02 102) Respirations: 18 PER MINUTE (12/02 102) SpO2: 99 % (12/02 1025) BP: (101-115)/(56-69) [...] AV, torrential TR, markedly elevated CVP - LAWN TECHNICIAN Bumex 3mg BID and spironolactone; increased to [...] assistance. Mechanical aortic valve -Implanted 2010 - LAWN TECHNICIAN warfarin 4 mg daily - INR 4.1 [...] - s/p chemotherapy in 2004 Anxiety/Depression - LAWN TECHNICIAN zoloft, increase to 100mg BID. - try atarax prn for anxiety Fluids: No IVF Electrolytes: Replace Lytes PRN Nutrition: CardiacDiet DVT PPx: SCDs, warfarin Lines/Drains: PIV Code Status: FULL CODE Diya Fagan MD Med Private D, Team Pager [phone] Subjective No events overnight. 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 At goal, but will target [...] AV, torrential TR, markedly elevated CVP - LAWN TECHNICIAN Bumex 3mg BID and spironolactone; increased to [...] placed. Mechanical aortic valve -Implanted 2010 - LAWN TECHNICIAN warfarin 4 mg daily - INR 4.1 [...] - s/p chemotherapy in 2004 Anxiety/Depression - LAWN TECHNICIAN zoloft continue - try atarax prn for anxiety Fluids: No IVF Electrolytes: Replace Lytes PRN Nutrition: CardiacDiet DVT PPx: SCDs, warfarin Lines/Drains: PIV Code Status: FULL CODE Mahmoud Y Ariel, MD Med Private D, Team Pager [phone] Subjective Zaria Paulson is a 60 y.o. [...] y Ruddy Márquez PHARMD 12/01/2020 * Basilia Sequeira APRN-SNOWBOARDING INSTRUCTOR - 12/01/2020 7:38 AM CDT Heart Failure [...] with non-Hodgkin lymphoma). Patient recently admitted to [facility] 14 days 11/15/2020 wit h GI bleed and nontraumatic rectus hematoma and was previously hospitalized [facility] for GI bleed in setting [...] urology including CT urogram and cystoscopy. Her LAWN TECHNICIAN Bumex was reduced during hospital ization with [...] Dr. Peres informed of above orders. Basilia Russell Kandy, SURGERY TECH-SNOWBOARDING INSTRUCTOR [phone] Assessment: Acute on chronic combined RV systolic [...] to recent bleeding. Major Complications or Comorbidities ([facility]): acute/ acute on chronic systolic and /or [...] 11/30- 12/01: Bumex gtt 0.5 mg/h GDMT LAWN TECHNICIAN Changes BB metoprolol tartrate d/c'd in early [...] intake Liver cirrhosis She follows with hepatology. [place] to be secondary to chemotherapy, has had [...] 06/06/2020 Performed by Bao Hernández MD at [facility] COLONOSCOPY DIAGNOSTIC WITH SPECIMEN COLLECTION BY BRUSHING/ WASHING - FLEXI BLE N/A 06/06/2020 Performed by Bao Hernández MD at [facility] ANGIOGRAPHY CORONARY ARTERY WITH RIGHT AND LEFT HEART CATHETERIZATION N/A Performed by Higinio Clarke MD at [facility] POSSIBLE PERCUTANEOUS CORONARY STENT PLACEMENT WITH ANGIOPLASTY N/A Performed by Higinio Clarke MD at [facility] ESOPHAGOGASTRODUODENOSCOPY WITH SPECIMEN COLLECTION BY BRUSHING/ WASHING N/A 10/21/2020 Performed by Cosmo Gomez MD at [facility] SIGMOIDOSCOPY WITH CONTROL OF BLEEDING - FLEXIBLE N/A 10/21/2020 Performed by Cosmo Gomez MD at [facility] SIGMOIDOSCOPY WITH DIRECTED SUBMUCOSAL INJECTION - FLEXIBLE 10/21/2020 Performed by Cosmo Gomez MD at [facility] Family History Problem Relation Age [...] Lamb MD [facility] * Natalya Dillon RN - 12/01/2020 5:38 [...] AV, torrential TR, markedly elevated CVP - LAWN TECHNICIAN Bumex 3mg BID and spironolactone; increased to [...] consulted Mechanical aortic valve -Implanted 2010 - LAWN TECHNICIAN warfarin 4 mg daily - INR 4.1 [...] - s/p chemotherapy in 2004 Anxiety/Depression - LAWN TECHNICIAN zoloft continue - try atarax prn for anxiety Fluids: No IVF Electrolytes: Replace Lytes PRN Nutrition: CardiacDiet DVT PPx: SCDs, warfarin Lines/Drains: PIV Code Status: FULL CODE Ja George MD Med Private D, Team Pager [phone] Subjective Zaria Paulson is a 60 y.o. [...] Signs: 24 Miguel r Range BP: 95/62 (09/09 0839) Temp: 36.5 C (97.7 F) (11/30 [...] AV, torrential TR, markedly elevated CVP - LAWN TECHNICIAN Bumex 3mg BID and spironolactone; increased to [...] AM Mechanical aortic valve -Implanted 2010 - warfarin [...] - s/p chemotherapy in 2004 Anxiety/Depression - LAWN TECHNICIAN zoloft continue - try atarax prn for [...] 06/06/2020 Performed by Bao Hernández MD at [facility] COLONOSCOPY DIAGNOSTIC WITH SPECIMEN COLLECTION BY BRUSHING/ WASHING - FLEXI BLE N/A 06/06/2020 Performed by Bao Hernández MD at [facility] ANGIOGRAPHY CORONARY ARTERY WITH RIGHT AND LEFT HEART CATHETERIZATION N/A Performed by Higinio Clarke MD at [facility] POSSIBLE PERCUTANEOUS CORONARY STENT PLACEMENT WITH ANGIOPLASTY N/A Performed by Higinio Clarke MD at [facility] ESOPHAGOGASTRODUODENOSCOPY WITH SPECIMEN COLLECTION BY BRUSHING/ WASHING N/A 10/21/2020 Performed by Cosmo Gomez MD at [facility] SIGMOIDOSCOPY WITH CONTROL OF BLEEDING - FLEXIBLE N/A 10/21/2020 Performed by Cosmo Gomez MD at [facility] SIGMOIDOSCOPY WITH DIRECTED SUBMUCOSAL INJECTION - FLEXIBLE 10/21/2020 Performed by Cosmo Gomez MD at [facility] Family History Problem Relation Age [...] Social Gatherings with Friends and Family: Attends [employer] Services: Active Member of Clubs or Organizations: [...] 24 miguel r(s)). Pertinent radiology reviewed. Berna aWlton MD documented in this encounter Consult Notes * Latesha Beltrán APRN-SNOWBOARDING INSTRUCTOR - 12/02/2020 9:09 AM CDT Associated Order(s): [...] spray, 1 spray, Each N ostril, QDAY [MAY Hold] levothyroxine (SYNTHROID) tablet 75 mcg, 75 mcg, Oral, QDAY 30 min be fore breakfast [May] oxybutynin chloride (DITROPAN) tablet 5 mg, 5 mg, Oral, TID [MAY Hold] pantoprazole DR (PROTONIX) tablet 40 mg, 40 mg, Oral, QDAY(21) [MAY Hold] sertraline (ZOLOFT) tablet 100 mg, 100 mg, Oral, QDAY [May] spironolactone (ALDACTONE) tablet 100 mg, 100 mg, Oral, QDAY [MAY Hold] warfarin (COUMADIN) tablet 1 mg, 1 mg, Oral, QHS Continuous Infusions: bumetanide (BUMEX) 12.5 mg in empty IV bag 50 mL IV drip (std conc) Stopped (12/02/20 07) sodium chloride 0.9 % TKO infusion 10 mL/hr at 12/01/20 0824 PRN and Respiratory Meds:[MAY Hold] acetaminophen Q6H PRN, [MAY Hold] diphenhydr AMINE HCL Q4H PRN, [MAY Hold] EPINEPHrine PF Q5 MIN PRN, [MAY Hold] hydrOXYzine TID PRN, [MAY Hold] hyoscyamine Q4H PRN, [MAY Hold] melatonin QHS PRN, [MAY Hold ] prochlorperazine Q6H PRN, [MAY Hold] senna [...] questions or concerns. Latesha Beltrán APRN-TWYLA Pgr [phone] IR Team Pager [phone] (After-hours and Weekends) * Gino Pandya APRN-TWYLA - 12/01/2020 12:22 PM CDT Associated Order(s): [...] is interested to use them again at [place] for safety net planning. She is awar [...] ideal if pt ca n tolerate max [place] dosing with continued med adjustments; mngt per HF. Per Hep atology note 09/21/20, possible concomitant chronic liver disease--could consider their engagement inpatient--pt has f/u with them in clinic 12/07 (particularly if admission would interfere with this [...] 06/06/2020 Performed by Bao Hernández MD at [facility] COLONOSCOPY DIAGNOSTIC WITH SPECIMEN COLLECTION BY BRUSHING/ WASHING - FLEXI BLE N/A 06/06/2020 Performed by Bao Hernández MD at [facility] ANGIOGRAPHY CORONARY ARTERY WITH RIGHT AND LEFT HEART CATHETERIZATION N/A Performed by Higinio Calrke MD at [facility] POSSIBLE PERCUTANEOUS CORONARY STENT PLACEMENT WITH ANGIOPLASTY N/A Performed by Higinio Clarke MD at [facility] ESOPHAGOGASTRODUODENOSCOPY WITH SPECIMEN COLLECTION BY BRUSHING/ WASHING N/A 10/21/2020 Performed by Cosmo Gomez MD at [facility] SIGMOIDOSCOPY WITH CONTROL OF BLEEDING - FLEXIBLE N/A 10/21/2020 Performed by Cosmo Gomez MD at [facility] SIGMOIDOSCOPY WITH DIRECTED SUBMUCOSAL INJECTION - FLEXIBLE 10/21/2020 Performed by Cosmo Gomez MD at [facility] Social History Tobacco Use Smoking status: [...] APRN, TWYLA-C Palliative Care Voalte, AMSConnect * Basilia Sequeira APRN-TWYLA - 11/30/2020 11:49 AM CDT Associated Order(s): [...] with non-Hodgkin lymphoma). Patient recently admitted to [facility] 14 days 11/15/2020 wit h GI bleed and nontraumatic rectus hematoma and was previously hospitalized [facility] for GI bleed in setting [...] urology including CT urogram and cystoscopy. Her LAWN TECHNICIAN Bumex was reduced during hospital ization with [...] and discussed with Dr. Lamb. 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 Major Complications or Comorbidities ([facility]): acute/ acute on chronic systolic and /or [...] Dosing 11/30: Bumex gtt 0.5 mg/h GDMT LAWN TECHNICIAN Changes BB metoprolol tartrate d/c'd in early [...] 125 mcg daily. Dig level ordered for 11 AM. SevereTricuspidRegurgitation: Pulmonary hypertension - Follows with [...] intake Liver cirrhosis She follows with hepatology. [place] to be secondary to chemotherapy, has had [...] 06/06/2020 Performed by Bao Hernández MD at [facility] COLONOSCOPY DIAGNOSTIC WITH SPECIMEN COLLECTION BY BRUSHING/ WASHING - FLEXI BLE N/A 06/06/2020 Performed by Bao Hernández MD at [facility] ANGIOGRAPHY CORONARY ARTERY WITH RIGHT AND LEFT HEART CATHETERIZATION N/A Performed by Higinio Clarke MD at [facility] POSSIBLE PERCUTANEOUS CORONARY STENT PLACEMENT WITH ANGIOPLASTY N/A Performed by Higinio Clarke MD at [facility] ESOPHAGOGASTRODUODENOSCOPY WITH SPECIMEN COLLECTION BY BRUSHING/ WASHING N/A 10/21/2020 Performed by Cosmo Gomez MD at [facility] SIGMOIDOSCOPY WITH CONTROL OF BLEEDING - FLEXIBLE N/A 10/21/2020 Performed by Cosmo Gomez MD at [facility] SIGMOIDOSCOPY WITH DIRECTED SUBMUCOSAL INJECTION - FLEXIBLE 10/21/2020 Performed by Cosmo Gomez MD at [facility] Family History Problem Relation Age [...] Lamb MD [facility] documented in this encounter Miscellaneous Notes * Patient Education - Arleth Norris - 12/04/2020 10:59 AM CDT On 12/04/2020, [...] home today with family support, and [facility]. S/O provide transportation home at [place]. Interventions Support Support: Pt/Family Updates re:POC or DC Plan Info or Referral Discharge Planning Discharge Planning: Home Health MEM notify [facility] of [place] and send updated signed [facility] orders and clinical i nformation including AVS. Spoke to Hansa, orders and clinical information faxed to [facility] [phone]. Medication Needs Financial Legal Other Disposition Expected Discharge Date 12/04/2020 Transportation Does the Patient Need Case Management to Arrange Discharge Transport? (ex: faci lity, ambulance, wheelchair/stretcher, Medicaid, cab, other): No Will the Patient Use Family Transport?: Yes Transportation Name, Phone and Availability #1: [facility] [phone] Does the patient use Medicaid Transportation?: No Next Level of Care (Acute Psych discharges only) Discharge Disposition Selected Continued Care - Admitted Since 11/29/2020 Home Care Service Provider Selected Services Address Phone Fax Patient Preferred [facility] Health [facility] [address] [facility] [address] [phone] Reagan Vazquez RN BSN Integrated Nurse Airline Managerial Supervisor [phone]/ [phone]/ Voalte [phone] * Care Plan - Carlo Klein RN [...] 2:02 PM CDT Case Management Progress Note NAME:Zaria Paulson : AGE: 60 y.o. ADMISSION DATE: 11/29/2020 DAYS ADMITTED: LOS: 2 days Todays Date: 12/01/2020 Plan Anticipate DC home with resumption of [facility]. provide transportation home at [place]. Nurse Airline Managerial Supervisor We ekend Needs Instructions for W/E Staff: Please notify [facility] of [place] and send updated clinical information including AVS. Teaching Needs Prior to DC: none Expected delivery of any needed medication/supplies/equipment: no Agency Expected SOC and Services Planned: Mon/Tue Interventions Support Support: Pt/Family Updates re:POC or DC Plan Info or Referral Discharge Planning Discharge Planning: Home Health [facility] update [facility], and send signed [facility] orders and clinicl updates. [facility] alexx giron with Hansa at [facility] office. Request to call [phone] to contact week end mark JARRELL. Medication Needs Financial Legal Other Disposition Expected Discharge Date 12/04/2020 Transportation Does the Patient Need Case Management to Arrange Discharge Transport? (ex: faci lity, ambulance, wheelchair/stretcher, Medicaid, cab, other): No Will the Patient Use Family Transport?: Yes Transportation Name, Phone and Availability #1: Senia Toribio [phone] Does the patient use Medicaid Transportation?: No Next Level of Care (Acute Psych discharges only) Discharge Disposition Selected Continued Care - Admitted Since 11/29/2020 No services have been selected for the patient. Reagan Vazquez BEATER MACHINE OPERATOR Integrated Nurse Airline Managerial Supervisor [phone]/ [phone]/ Michelle [phone] * Case Mgmt DC Plan - Reagan [...] home with family support, and resumption of [facility] [place]. Senia Toribio provide transportation home at [place]. CM team continue to follow and assess additional CM needs. Interventions Support Support: Pt/Family Updates re:POC or DC Plan Info or Referral Discharge Planning Discharge Planning: Home Health NCM send clinical updates to [facility]. [facility] central admissions. NCM will send upd ated [facility] orders and additional clinical information prior to DC. Medication Needs Financial Legal Other Disposition Expected Discharge Date 12/02/2020 Transportation Does the Patient Need Case Management to Arrange Discharge Transport? (ex: faci lity, ambulance, wheelchair/stretcher, Medicaid, cab, other): No Will the Patient Use Family Transport?: Yes Transportation Name, Phone and Availability #1: Senia Toribio [phone] Does the patient use Medicaid Transportation?: No Next Level of Care (Acute Psych discharges only) Discharge Disposition Selected Continued Care - Admitted Since 11/29/2020 No services have been selected for the patient. Patient Address/Phone [address] [place] [phone] (home) Emergency Contact Extended Emergency Contact Information Primary Emergency Contact: Catarino Westfall Mobile Relation: Significant Other Secondary Emergency Contact: Blair Chambers Mobile Relation: Son Healthcare Directive Healthcare Directive: Yes, patient has a healthcare directive Type of Healthcare Directive: Durable power of social sciences instructor for healthcare, [facility] re directive Location of [...] Transportation Name, Phone and Availability #1: Catarino [phone] Does the patient use Medicaid Transportation?: No [...] Primary Insurance: Medicare (A&B) Secondary Insurance: Medicaid (Me Medicaid) Additional Coverage: RX (Fills at [facility], Rx are affordable.) Source of Income Financial Assistance Needed? no Psychosocial Needs Mental Health Mental Health History: No Substance Use History Other none Current/Previous Services PCP Isaac, [place], , Pharmacy [facility] - [place], [place] - [address] [facility] [address] [facility] [address] [facility] [address] [facility]. [place] [address] [facility] [address] Durable Medical Equipment Durable Medical Equipment at home: [facility] Receiving home health: Yes Agency name: [facility] Fr. Menjivar Would patient use this agency [...] No Outpatient Therapy PT: No OT: No ORE CRUSHER: No Fpc Facility/Senior Care SNF: No NH: No Inpatient Rehab IPR: No Long-Term Acute Care Hospital LTACH: No Acute Hospital Stay Acute Hospital Stay: In the past Name of Hospital: [facility] When did patient receive care?: 11/04- Readmission Code Group: 9. Unrelated Readmision (previous admit r/t GIB, current admit r/t HF) Reagan Vazquez BEATER MACHINE OPERATOR Integrated Nurse Airline Managerial Supervisor [phone]/ Rolandalclaire [phone] * Care Coordination-Inpatient - Mauricio Thapa MD - 11/30/2020 3:15 AM CDT Please page Med Private AOD [phone] before 8AM and page med private D after 8AM. * Drug Level - Heather Ott, DONNAD - 11/29/2020 4:12 PM CDT Pharmacy Warfarin [...] Schedule Name Type Priority Associated Diag noses Once a Week Auto for 99 Occurrences star ting 12/04/2020 until 12/04/2021, 2 completed PROTIME INR (PT) Lab Routine Paroxysmal at rial fibrillation (HCC) documented as of this encounter Goals Goal Patient Associated Recent Progress Patient-Stat Aut hor Goal Type Problems ed? [facility] On track (10/23/2020 Yes Sheldon, 1:06 [...] P shane Number [facility] [address] [place] [address] * PROTIME INR (PT) (12/06/2020) INR 1.7 (H) 0.8 - 1.4 [facility] Protime 19.8 (H) 12.2 - 14.7 [facility] Specimen Blood - Blood Narrative Performed At This result has an attachment that is n ot available. Performing Organization Address City/State/ZIP Code P shane Number [facility] [address] [place] [address] * MAGNESIUM (12/04/2020 3:52 AM CDT) Pathologist [facility] Magnesium 2.0 1.6 - 2.6 mg/dL [facility] Specimen Performing Organization Address City/State/ZIP Code P shane Number [facility] [address] [place] [address] * COMPREHENSIVE METABOLIC PANEL (12/04/2020 3:52 AM CDT) Pathologist [facility] Sodium 132 (L) 137 - 147 [...] >60 >60 mL/min [facility] Comment: Greek The eGFR is not validated f or use in drug dosing adjustments. Continue to use estimated creatinine clearance per dosing reference text. Please contact the Clinical Pharmacist for questions. eGFR >60 >60 mL/min [facility] Greek Comment: The eGFR is not validated for use in drug dosing adjustments. Continue to use estimated creatinine clearance per dosing reference text. Please contact the Clinical Pharmacist for questions. Specimen Blood Performing Organization Address City/[facility]/ZIP Code P shane Number [facility] [address] [place] [address] * CBC AND DIFF (12/04/2020 3:52 AM [...] Basophil Count Specimen Blood Performing Organization Address [facility]/ZIP Code P shane Number [facility] [address] [place] [address] * DIGOXIN LEVEL (12/04/2020 3:52 AM CDT) Digoxin 1.4 (H) 0.5 - 1.0 NG/ML [facility] Specimen Blood Performing Organization Address City/[facility]/ZIP Code P shane Number [facility] [address] [place] [address] * PROTIME INR (PT) (12/04/2020 3:52 AM CDT) INR 1.9 (H) 0.8 - 1.2 [facility] Specimen Blood Performing Organization Address City/[facility]/ZIP Code P shane Number [facility] [address] [place] [address] * MAGNESIUM (12/03/2020 2:53 PM CDT) Magnesium 1.4 (L) 1.6 - 2.6 mg/dL [facility] Specimen Blood Performing Organization Address City/[facility] P shane Number [facility] [address] [place] [address] * BASIC METABOLIC PANEL (12/03/2020 2:53 PM [...] >60 >60 mL/min [facility] Comment: Greek The eGFR is not validated f or use in drug dosing adjustments. Continue to use estimated creatinine clearance per dosing reference text. Please contact the Clinical Pharmacist for questions. eGFR >60 >60 mL/min [facility] Greek Comment: The eGFR is not validated for use in drug dosing adjustments. Continue to use estimated creatinine clearance per dosing reference text. Please contact the Clinical Pharmacist for questions. Specimen Blood Performing Organization Address City/[facility]/ZIP Code P shane Number [facility] [address] [place] [address] * COMPREHENSIVE METABOLIC PANEL (12/03/2020 4:24 AM [...] (L) >60 mL/min [facility] Comment: Greek The eGFR is not validated f or use in drug dosing adjustments. Continue to use estimated creatinine clearance per dosing reference text. Please contact the Clinical Pharmacist for questions. eGFR >60 >60 mL/min [facility] Greek Comment: The eGFR is not validated for use in drug dosing adjustments. Continue to use estimated creatinine clearance per dosing reference text. Please contact the Clinical Pharmacist for questions. Specimen Blood Performing Organization Address City/State/ZIP Code P shane Number [facility] [address] [place] [address] * CBC AND DIFF (12/03/2020 4:24 AM [...] Basophil Count Specimen Blood Performing Organization Address City/[facility]/ZIP Code P shane Number [facility] [address] [place] [address] * PROTIME INR (PT) (12/03/2020 4:24 AM CDT) INR 2.3 (H) 0.8 - 1.2 [facility] Specimen Blood Performing Organization Address [facility] P shane Number [facility] [address] [place] [address] * BASIC METABOLIC PANEL (12/02/2020 1:14 PM [...] >60 >60 mL/min [facility] Comment: Greek The eGFR is not validated f or use in drug dosing adjustments. Continue to use estimated creatinine clearance per dosing reference text. Please contact the Clinical Pharmacist for questions. eGFR >60 >60 mL/min [facility] Greek Comment: The eGFR is not validated for use in drug dosing adjustments. Continue to use estimated creatinine clearance per dosing reference text. Please contact the Clinical Pharmacist for questions. Specimen Blood Performing Organization Address [facility]/State/ZIP Code P shane Number MAIN LAB [address] [place] [address] * IR PARACENTESIS THERAPEUTIC (12/02/2020 9:46 AM CDT) Specimen Impressions Performed At Successful therapeutic ultrasound guided paracentesis . 6300 mL of fluid was [facility] RESULTS removed. Approved by Ramo Prucell MD on 12/02 10:20 AM I, Iban [...] AM. Narrative Performed At Therapeutic ultrasound-guided paracentesis [facility] [place] CLINICAL INDICATION: [facility] AVIATION TECHNICIAN AIRCRAFT: Ramo Purcell M.D. TECHNIQUE: Transverse real time images were obtained through the abdomen. The risks and benefits of this procedur e were discussed and informed written consent was obtained prior to performin g the procedure. The abdomen was then prepped and draped in usual sterile fashion. Limited ultrasound of the abdomen was performed . Under ultrasound guidance, a 5 Azeri centesis needle was advanced into the p [...] CDT Therapeutic ultrasound-guided paracentesis CLINICAL INDICATION: [facility] AVIATION TECHNICIAN AIRCRAFT: Ramo Purcell M.D. TECHNIQUE: Transverse real time images were obtained through the abdomen. The risks and benefits of this procedure were discussed and informed written consent was obtained prior to performing the procedure. The abdomen was then prepped and draped in usual sterile fashion. Limited ultrasound of the abdomen was performed. Under ultrasound guidance, a 5 Azeri centesis needle was advanced into the peritoneal [...] (L) >60 mL/min [facility] Comment: Greek The eGFR is not validated f or use in drug dosing adjustments. Continue to use estimated creatinine clearance per dosing reference text. Please contact the Clinical Pharmacist for questions. eGFR >60 >60 mL/min [facility] [place] Comment: The eGFR is not validated for use in drug dosing adjustments. Continue to use estimated creatinine clearance per dosing reference text. Please contact the Clinical Pharmacist for questions. Specimen Blood Performing Organization Address City/[facility]/ZIP Code P shane Number [facility] [address] [place] [address] * CBC AND DIFF (12/02/2020 4:54 AM [...] Basophil Count Specimen Blood Performing Organization Address City/[facility]/ZIP Code P shane Number [facility] [address] [place] [address] * DIGOXIN LEVEL (12/02/2020 4:54 AM CDT) Digoxin 1.3 (H) 0.5 - 1.0 NG/ML [facility] Specimen Blood Performing Organization Address City/State/ZIP Code P shane Number [facility] [address] [place] [address] * PROTIME INR (PT) (12/02/2020 4:54 AM CDT) INR 2.8 (H) 0.8 - 1.2 [facility] Specimen Blood Performing Organization Address City/[facility]/ZIP Code P shane Number [facility] [address] [place] [address] * US ABDOMEN LIMITED (12/01/2020 3:02 PM [...] (L) >60 mL/min [facility] Comment: Greek The eGFR is not validated f or use in drug dosing adjustments. Continue to use estimated creatinine clearance per dosing reference text. Please contact the Clinical Pharmacist for questions. eGFR >60 >60 mL/min [facility] [place] Comment: The eGFR is not validated for use in drug dosing adjustments. Continue to use estimated creatinine clearance per dosing reference text. Please contact the Clinical Pharmacist for questions. Specimen Blood Performing Organization Address City/[facility]/ZIP Code P shane Number [facility] [address] [place] [address] * COMPREHENSIVE METABOLIC PANEL (12/01/2020 6:04 AM [...] (L) >60 mL/min [facility] Comment: Greek The eGFR is not validated f or use in drug dosing adjustments. Continue to use estimated creatinine clearance per dosing reference text. Please contact the Clinical Pharmacist for questions. eGFR >60 >60 mL/min [facility] Greek Comment: The eGFR is not validated for use in drug dosing adjustments. Continue to use estimated creatinine clearance per dosing reference text. Please contact the Clinical Pharmacist for questions. Specimen Blood Performing Organization Address City/[facility] P shane Number [facility] [address] [place] [address] * CBC AND DIFF (12/01/2020 6:04 AM CDT) White Blood 6.3 4.5 - 11.0 K/UL MAIN LAB Cells RBC 2.96 (L) 4.0 - 5.0 M/UL MAIN LAB Hemoglobin 8.8 (L) 12.0 - 15.0 GM/DL [facility] Hematocrit 26.9 (L) 36 - 45 % MAIN LAB MCV 91.1 80 - 100 FL [facility] LAB MCH 29.9 26 - 34 PG MAIN LAB MCHC 32.8 32.0 - 36.0 G/DL MAIN LAB RDW 18.3 (H) 11 - 15 % [facility] Platelet Count 365 150 - 400 K/UL [facility] LAB MPV 6.6 (L) 7 - 11 FL [facility] Neutrophils 82 (H) 41 - 77 % [facility] Lymphocytes 5 (L) 24 - 44 % [facility] Monocytes 8 4 - 12 % MAIN LAB Eosinophils 4 0 - 5 % MAIN LAB Basophils 1 0 - 2 % MAIN LAB Absolute 5.14 1.8 - 7.0 [...] Code P shane Number MAIN LAB [address] [place] [address] * PROTIME INR (PT) (12/01/2020 6:04 AM CDT) [facility] INR 3.0 (H) 0.8 - 1.2 MAIN LAB Specimen Blood Performing Organization Address City/[facility]/ZIP Code P shane Number MAIN LAB [address] [place] [address] * 2D + DOPPLER ECHO (11/30/2020 7:55 AM CDT) [facility] IVS 1.40 0.6 - 0.9 cm OTHER [...] = LAB AV index 0.28 OTHER OUTSIDE ([place]) LAB LVOT diameter 2.0 cm OTHER OUTSIDE [...] 76 mmHg. Compared to prior echocardiogram perfor [facility] on 10/21/2020, findings are similar. EF was 60%. Mechanical aor tic valve mean gradient was 14 mmHg with a peak velocity of 2.6 m/s. Ther e was severe tricuspid regurgitation noted. Peak systolic PA pressure was 79 mmHg. Performing Organization Address City/State/ZIP Code P shane Number OTHER OUTSIDE LAB * MAGNESIUM (11/30/2020 4:25 AM CDT) Pathologist [facility] Magnesium 2.3 1.6 - 2.6 mg/dL [facility] Specimen Performing Organization Address City/State/ZIP Code P shane Number [facility] [address] [place] [address] * COMPREHENSIVE METABOLIC PANEL (11/30/2020 4:25 AM [...] (L) >60 mL/min [facility] Comment: Greek The eGFR is not validated f or use in drug dosing adjustments. Continue to use estimated creatinine clearance per dosing reference text. Please contact the Clinical Pharmacist for questions. eGFR >60 >60 mL/min [facility] Greek Comment: The eGFR is not validated for use in drug dosing adjustments. Continue to use estimated creatinine clearance per dosing reference text. Please contact the Clinical Pharmacist for questions. Specimen Blood Performing Organization Address City/State/ZIP Code P shane Number [facility] [address] [place] [address] * CBC AND DIFF (11/30/2020 4:25 AM [...] P shane Number [facility] [address] [place] [address] * PROTIME INR (PT) (11/30/2020 4:25 AM CDT) INR 3.3 (H) 0.8 - 1.2 MAIN LAB Specimen Blood Performing Organization Address City/State/ZIP Code P shane Number MAIN LAB [address] [place] [address] * CHEST SINGLE VIEW (11/29/2020 5:38 PM [...] on 11/30/2020 7:49 AM. Performing Organization Address City/[facility]/ZIP Code P shane Number [facility] RAD RESULTS * BNP (B-TYPE NATRIURETIC PEPTI) (11/29/2020 5:22 PM CDT) B Type 396.0 (H) 0 - 100 PG/ML MAIN LAB Natriuretic Peptide Specimen Blood Performing Organization Address [facility]/ZIP Code P shane Number MAIN LAB [address] [place] [address] * LIPID PROFILE (11/29/2020 5:22 PM CDT) Pathologist [facility] Cholesterol 76 <200 MG/DL MAIN LAB Triglycerides 77 <150 MG/DL MAIN LAB HDL 25 (L) >40 MG/DL MAIN LAB LDL 43 <100 mg/dL MAIN LAB VLDL 15 MG/DL MAIN LAB Non HDL 51 MG/DL MAIN LAB Cholesterol Comment: Calculated non-HDL Cholesterol (non-HDL-C) indirectly measures LDL-C, Lp(a), IDL-C, and VLDL-C. It is a surrogate marker for Apoprotein B. Goal should be less than 130 mg/dL. Specimen Blood Performing Organization Address [facility] P shane Number MAIN LAB [address] [place] [id number] * HEMOGLOBIN A1C (11/29/2020 5:22 PM CDT) Pathologist [facility] Hemoglobin A1C 4.8 4.0 - 6.0 % MAIN LAB Comment: The ADA recommends that most patients with type 1 and type 2 diabetes maintain an A1c level <7%. Specimen Blood Performing Organization Address City/[facility]/ZIP Code P shane Number MAIN LAB [address] [place] [address] * COVID-19 (SARS-COV-2) PCR (11/29/2020 4:20 PM CDT) COVID-19 FLOCKED SWAB MAIN LAB [...] performance characteristics have been verified by the [facility]. Fact sheet for providers: https://www.fda.gov/media/4862 85/download Fact sheet for patients: https://www.fda.gov/media/9274 87/download Specimen Flocked Swab - Nasopharyngeal Performing Organization Address City/State/ZIP Code P shane Number [facility] LAB [address] [place] [address] * TELEMETRY STRIPS-SCAN (11/29/2020 12:00 AM CDT) [...] 500 mcg, Oral, ONCE, 1 dose, On Fri11/30/20 at 1445, Hold for heart rate < [...] Intravenous, ONCE PRN, 1 dose, Starting on Fri11/30/20 at 0651, Until Fri11/30/20 at 0756, For Procedure , A senior managing director may only administer Definity through a saline [...] piggy back (IVPB) or patient controlled analgesia (HOBBING MACHINE OPERATOR) infusions ma y be infused with as [...] DAILY, First dose (after last modification) on Fri12/02/20 at 0900, Until Discontinued, NURSING: Please educate [...] 50 mg, Oral, ONCE, 1 dose, On 12/01/20 at 0945, NURSING: Please educate patient and [...] First dos e (after last modification) on Sat 1 at 2100, Until Discontinued, NURSING: Provide patient with warfarin education leaflet. Do not give with cranberry juice. NOTE: This is a HIGH ALERT Medication. 2 mg Given 12/02/2020 8:09 PM CDT warfarin, pharmacy to manage PER PHARMACY, 999 doses, Starting on d 11/29/20 at 1636, Until 12/04/20 at [...] 1 Removed from capsuleIndications: Acute capsule by LAWN TECHNICIAN Med List on chronic heart failure mouth twice with preserved ejection daily. fraction (HCC), Aortic valve prosthesis present 12/01/2020 omeprazole ([facility]) Take 40 mg Removed from 40 mg capsule by mouth LAWN TECHNICIAN Med List twice daily. 11/21/2020 12/04/2020 warfarin [...] in CDT. 12/03/2020 12/04/2020 Medication Order 12/02/2020 1700 (Given - Provider: Jojo Fish) 0850 (Given - Provider: Sarah Suero RN) bumetanide [...] dose. available/off unit)1007 (MAY Unhold - Provider: Ku, Orders Discontinue) 2036 (Given - New Bag [...] Provider: Jojo Fish)1457 (Given - Provider: Tonie Fisher, CHRYSTAL)2035 (Given - Provider: Carlo Klein RN) 0824 [...] Kendrick, Orders Discontinue)2008 (Given - Provider: Vicky Barrett, CHRYSTAL) 145 (Given - Provider: Jojo Fish) potassium chloride [...] of water 0928 (Given - Provider: Sarah Suero, CHRYSTAL) potassium chloride SR (K-DUR) tablet 40 mEq (COMPLETED) 40 mEq, Oral, ONCE, 1 dose, On 12/04/20 at 0900, Do NOT break or crush tablet Give with meal or full glass of water potassium chloride SR (K-DUR) tablet 60 1811 (Given - mEq (COMPLETED) Provider: Aarti 60 mEq, Oral, ONCE, 1 dose, On Fri CHRYSTAL Jacobs) 12/02/20 at 1745, - Tablet [...] (MAY Unhold - Provider: Kendrick, Orders Discontinue) 0825 (Given - Provider: Jojo Fish)2034 (Given - Provider: Carlo Klein RN) 0823 (Given - Provider: Sarah Suero, CHRYSTAL) sertraline (ZOLOFT) tablet 100 mg 2008 (Given - 100 mg, Oral, TWICE DAILY, First dose Provider: Monica nicolas (after last modification) on 12/02/20 CHRYSTAL Barrett) at 2100, Until Discontinued 08 (Given - Provider: Jojo Fish) 0823 (Given - Provider: Sarah Suero RN) spironolactone (ALDACTONE) tablet 100 mg 0817 (Given - 100 mg, Oral, DAILY, First dose (after Provider: Manoj medrano last modification) on 12/02/20 at CHRYSTAL Jacobs)090 8 0900, Until Discontinued, NURSING: (MAR Hold - Please educate patient and document: Provider: Selma Sparks rdjaimie Avoid using salt substitutes which have Discontinue - a high potassium content (Nu-Salt). Reason: Patient not available/off unit)1006 (MAR Unhold - Provider: Kendrick, Orders Discontinue) [...] CONTINUOUS, Starting on Fri12/01/20 at 0815, Until 12/04/20 at 1312, Infusions ordered as IV piggy back (IVPB) or patient controlled analgesia (HOBBING MACHINE OPERATOR) infusions ma y be infused with as a secondary or Y-sited with a primary infusion of 250 mL 0.9% sodium chloride, or other compatible fluid as applicable, at the rate of 10 mL/hr to flush the line afte r infusion and/or keep the line patent. 12/03/2020 12/04/2020 Medication Order 12/02/20202048 (Given - Provider: Jojo Sullivan) acetaminophen (TYLENOL) tablet 650 mg 0908 (MAY Hold - 650 mg, Oral, EVERY 6 HOURS PRN, Provider: Johanny Sparks rs Starting on Fri11/29/20 at 1532, Until Discontinue - Fri12/04/20 at 1312, Pain non-opioid: Reason: Patien t not may be used alone or in combination with available/o ff opioid analgesia, TOTAL ACETAMINOPHEN unit)1006 (MAR DOSE NOT TO EXCEED 4GM DAILY Unhold - Provider: Kendrick, Orders Discontinue)1011 (Given - Provider: Aarti Jacobs, RN)2008 (Given - Provider: Vicky Barrett, CHRYSTAL) albumin 25% injection (COMPLETED) 0931 (Given - New INTRA-PROCEDURE MED(CONT), Starting on Bag - Provide r: 12/02/20 at 0931, Until 12/02/20 Rhiannon tomlinson, RN) at 0931 hydrOXYzine HCL (ATARAX) tablet 25 mg 0908 (MAY Hold - 25 mg, Oral, THREE TIMES DAILY PRN, Provider: Pola Sparks Starting on Fri11/29/20 at 1602, Until Discontinue [...] 1532, Until Fri12/04/20 at Discontinue - 1312, Insomnia Reason: Patient not available/off unit)1007 (MAY [...] with 9 mL of NS to facilitate Kendrick, Orders titration. Discontinue) senna (SENOKOT) tablet 1 tablet 0908 (MAY Hold - 1 tablet, Oral, DAILY PRN, Starting on Provider: Kendrick , Orders Fri11/29/20 at 1532, Until Fri12/04/20 at Discontinue - 1312, Constipation PO, Hold for loose Reason: Patien t not stools available/off unit)1007 (MAY Unhold - Provider: Kendrick Orders Discontinue) warfarin, pharmacy to manage 0908 (MAY Hold - PER PHARMACY, 999 doses, Starting on Fri Provider: Yvonne pan, Orders 11/29/20 at 1636, Until Fri12/04/20 at Discontinue - 1312, Warfarin Indication: Other Reason: Patient not (specify in comments), INR Goal: INR available/off 2-3, This order is for informational use unit)1007 ( MAY only. See separate order for Unhold - Provider: administration and documentation of Hadley Sparks warfarin. NOTE: This is a HIGH ALERT [...]
--- OUTSIDE RECORDS SUMMARY | 2020-12-22 13:37 | XMS REPORT | Encounter Summary ---
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 Name Role Phone Self, Garfield OLVERA PCP Riley Hopson MD 3 Reason for Referral * Consultation (Discharge Pending) Referred By Contact Referred To Contact Status Reason Specialty Diagnoses / Procedures Mark Rodgers DO [address] [place] [address] [place] [address] [facility] [address] [facility] [address], [address] [place] [address] Pending Review Cardiology Procedures APPOINTMENT REQUEST: CARDIOLOGY HEART FAILURE Electronically signed by Mark Rodgers DO at Reason for Visit * Auth/Cert Referred By Contact Referred To Contact Status Reason Specialty Diagnoses / Procedures Diagnoses GIB (gastrointestinal bleeding) ABD pain Encounter Details Care Team Description Date Type Department Derrick Meza MD [address] [place] [address] [phone] Albin Robertson MD [address] [place] [address] [phone] Aristeo Reveles MD [address] [place] [address] [phone] Mark Rodgers DO [address] [facility] [place] [address] [phone] Nontraumatic rectus hematoma 11/04/2020 Hospital Patient Care Unit H C7: - [facility]counter [facility] 11/15/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 She was recently admitted roughly at the beginning of October for GI bleeding in the setting of cirrhosis and was treated with ceftriaxone and pantoprazole. She was d/c and had been doing well. Then on 11/03 she developed severe 10/10 LLQ israel n and went to the ED at [facility]. A CT revealed a rectus abdominal hematoma [...] PM Office visit with HOSSEIN Pascal Transplant: [facility] ([facility]) [address] [facility] [address], [address] [facility] [address] Dec 22, 2020 2:[address] UROGRAM (SCHED ONLY) with CT-MOB Imaging, CT: [facility] ([facility] Radiology) [address] [facility] [address] [facility] [phone] Dec 22, 2020 3:30 PM Procedure with Fernie Abreu MD, UROLOGY PROCEDURE RM 1 Urology: [facility] [place], [facility] (Urology) [address] [facility] [phone] Consults, Procedures, Diagnostics, Micro, Pathology Consults: Cardiology, [...] ID 10/20/2020 1221 10/26/2020 1253 Full Code [id number] Vijaya Millard MD Inpatient 10/20/2020 0846 10/20/2020 1221 Full Code [id number] Crissy Gould PA-C I npatient Only showing [...] would you like to CC? NITISH STARR [[id number]] Release to patient Immediate Cardiac Diet Limiting [...] stopping any medicat ions. This includes prescription, [id number], natural supplements, vitami ns, and minerals. Many [...] discharge instructions, or medications by call ing [phone] during regular business hours (8AM-4PM) and asking [...] provider (PCP). 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 [phone] Additional Orders: Case Management, Supplies, Home Health Signed: Leandro Cullen MD 11/15/2020 cc: Primary Care Physician: Garfield Gray Referring physicians: Melissa Newberry PA-C Additional provider(s): Did we miss something? If additional records are needed, please fax a request on office letterhead to [phone]. Please include the patient's name, date of b irth, fax number and type of information needed. Additional request can be made by email at [email or web address]. For general questions of information about electronic records sharing, call [phone]. documented in this encounter Discharge Instructions * Discharge Instr - Case Management* Lacy Sims BSN - 11/09/2020 2:10 PM CDT A nurse with [facility] will come to your home within 24-48 hours of dis charge to initiate home nursing, physical therapy, and occupational therapy serv ices. Please see their contact information below. Your home health orders will b e overseen by your primary-care provider, Dr. Garfield Gray following discharge. Please reach out to [facility] or Dr. Gray's office with any questions f ollowing discharge. [facility] documented in this encounter Medications at Time [...] Bathroom Toilet: Standard Prior Function Level Of [place]: Independent with ADLs and functional transfers;Needed ass [...] Home with intermittent supervision/assistance Therapist: SLAVA Mejia/Nancy [id number] Date: 11/15/2020 * Leandro Culeln MD - 11/15/2020 10:30 AM CDT General [...] of lymphoma who presented via transfer from [facility] with concern for a left re ctus [...] abdominal hematoma Hematuria - Patient presented to [facility] with 2-day hx of LLQ pain, 10/10 [...] AV, torrential TR, markedly elevated CVP - SPECIAL EDUCATOR Bumex 3mg BID, metolazone 2.5mg 1 tab twice weekly - Dry weight ~131lbs -Patient exam not concerning for volume overload. -BP 90s over 50s -Cardiology Heart Failure consulted, Recommendations: -Restart bumex 4mg po BID -Resume SPECIAL EDUCATOR metolazone at discharge - 2000mg salt restriction, 1.5L fluid restriction -Strict I/O, daily standing weight PLAN: > Continue Bumex 2mg po bid >2000mg salt restriction, 1.5L fluid restriction >Strict I/O, daily standing weight Mechanical aortic valve - Implanted 2010 - SPECIAL EDUCATOR warfarin 5mg daily, was bridging with Lovenox [...] Internal Medicine, PGY1 Available on Voalte Pager: [phone] Subjective Interval history: No acute events overnight. [...] Care plan was discussed with the patient, child support case officer, house staff, and pharmac ist. Carlos Rodgers DO Date: 11/15/2020 Internal Medicine, Hospitalist [phone] * Bao Urrutia MD - 11/15/2020 7:42 [...] provide intervention as indicated. Kavita Owens, KRISTENR/L [id number] * Brigitte Barlow - 11/14/2020 12:28 PM [...] lymphoma who presented via transfer from [facility] with concern for a left re ctus [...] Muscle Wasting: Yes; Severity: Mild; Location: Clavicle, Mu-Ism Edema: No; ; Pressure Injury: none noted [...] Status: Partially met;Ongoing Brigitte Barlow, MS, RD, INFRASTRUCTURE PROJECT MANAGER, LD, CCTD Office: [phone] Available on Voalte * Leandro Cullen MD [...] of lymphoma who presented via transfer from [facility] with concern for a left re ctus abdominal muscle hematoma and active extravasation. Interval Update: Voiding trial today. INR 1.3 again, warfarin increased to 5qhs. Will continue admission until INR within goal. Acute blood loss anemia L flank/hip hematoma Left rectus abdominal hematoma Hematuria - Patient presented to [facility] with 2-day hx of LLQ pain, 10/10 [...] AV, torrential TR, markedly elevated CVP - SPECIAL EDUCATOR Bumex 3mg BID, metolazone 2.5mg 1 tab twice weekly - Dry weight ~131lbs -Patient exam not concerning for volume overload. -BP 90s over 50s -Cardiology Heart Failure consulted, Recommendations: -Restart bumex 4mg po BID -Resume SPECIAL EDUCATOR metolazone at discharge - 2000mg salt restriction, 1.5L fluid restriction -Strict I/O, daily standing weight PLAN: > Continue Bumex 2mg po bid >2000mg salt restriction, 1.5L fluid restriction >Strict I/O, daily standing weight Mechanical aortic valve - Implanted 2010 - SPECIAL EDUCATOR warfarin 5mg daily, was bridging with Lovenox [...] Internal Medicine, PGY1 Available on Voalte Pager: [phone] Subjective Interval history: No acute events overnight. [...] Care plan was discussed with the patient, child support case officer, house staff, and pharmac ist. Carlos Rodgers DO Date: 11/14/2020 Internal Medicine, Hospitalist [phone] * Nithya Goldman, PHARMD - 11/14/2020 7:11 [...] Department Center 12/07/2020 3:30 PM Jeanette Garcia, BARTENDER SERVER-ENTRY LEVEL DRAFTER CFT LTX HEP CFT KU 12/22/2020 2:15 [...] Bathroom Toilet: Standard Prior Function Level Of [place]: Independent with ADLs and functional transfers;Needed ass [...] Requires Equipment: Bath/shower chair Therapist: SLAVA Weston/Nancy [id number] Date: 11/13/2020 * Leandro Cullen MD - [...] of lymphoma who presented via transfer from [facility] with concern for a left re ctus abdominal muscle hematoma and active extravasation. Acute blood loss anemia L flank/hip hematoma Left rectus abdominal hematoma Hematuria - Patient presented to [facility] with 2-day hx of LLQ pain, 10/10 [...] AV, torrential TR, markedly elevated CVP - SPECIAL EDUCATOR Bumex 3mg BID, metolazone 2.5mg 1 tab twice weekly - Dry weight ~131lbs -Patient exam not concerning for volume overload. -BP 90s over 50s -Cardiology Heart Failure consulted, Recommendations: -Restart bumex 4mg po BID -Resume SPECIAL EDUCATOR metolazone at discharge - 2000mg salt restriction, 1.5L fluid restriction -Strict I/O, daily standing weight PLAN: > Continue Bumex 2mg po bid >2000mg salt restriction, 1.5L fluid restriction >Strict I/O, daily standing weight Mechanical aortic valve - Implanted 2010 - SPECIAL EDUCATOR warfarin 5mg daily, was bridging with Lovenox [...] Internal Medicine, PGY1 Available on Voalte Pager: [phone] Subjective Interval history: No acute events overnight. [...] of lymphoma who presented via transfer from [facility] with concern for a left re ctus abdominal muscle hematoma and active extravasation. Acute blood loss anemia L flank/hip hematoma Left rectus abdominal hematoma Hematuria - Patient presented to [facility] with 2-day hx of LLQ pain, 10/10 [...] AV, torrential TR, markedly elevated CVP - SPECIAL EDUCATOR Bumex 3mg BID, metolazone 2.5mg 1 tab twice weekly - Dry weight ~131lbs -Patient exam not concerning for volume overload. -BP 90s over 50s -Cardiology Heart Failure consulted, Recommendations: -Restart bumex 4mg po BID -Resume SPECIAL EDUCATOR metolazone at discharge - 2000mg salt restriction, 1.5L fluid restriction -Strict I/O, daily standing weight PLAN: > Continue Bumex 2mg po bid >2000mg salt restriction, 1.5L fluid restriction >Strict I/O, daily standing weight Mechanical aortic valve - Implanted 2010 - SPECIAL EDUCATOR warfarin 5mg daily, was bridging with Lovenox [...] MD Internal Medicine, PGY-1 Available on Voalte [phone] Subjective No acute overnight events. She reports [...] no longer be managed by Pharmac y Roxanne Orozco PHARMD 11/11/2020 * Otto Hayes MD [...] of lymphoma who presented via transfer from [facility] with concern for a left re ctus abdominal muscle hematoma and active extravasation. Acute blood loss anemia L flank/hip hematoma Left rectus abdominal hematoma Hematuria - Patient presented to [facility] with 2-day hx of LLQ pain, 10/10 [...] AV, torrential TR, markedly elevated CVP - SPECIAL EDUCATOR Bumex 3mg BID, metolazone 2.5mg 1 tab twice weekly - Dry weight ~131lbs -Patient exam not concerning for volume overload. -BP 90s over 50s -Cardiology Heart Failure consulted, Recommendations: -Restart bumex 4mg po BID -Resume SPECIAL EDUCATOR metolazone at discharge - 2000mg salt restriction, 1.5L fluid restriction -Strict I/O, daily standing weight PLAN: > Continue Bumex to 2mg po bid >2000mg salt restriction, 1.5L fluid restriction >Strict I/O, daily standing weight Mechanical aortic valve - Implanted 2010 - SPECIAL EDUCATOR warfarin 5mg daily, was bridging with Lovenox [...] MD Internal Medicine, PGY-1 Available on Voalte [phone] Subjective No acute overnight events. She reports [...] of lymphoma who presented via transfer from [facility] with concern for a left re ctus abdominal muscle hematoma and active extravasation. Acute blood loss anemia L flank/hip hematoma Left rectus abdominal hematoma Hematuria - Patient presented to [facility] with 2-day hx of LLQ pain, 10/10 [...] AV, torrential TR, markedly elevated CVP - SPECIAL EDUCATOR Bumex 3mg BID, metolazone 2.5mg 1 tab twice weekly - Dry weight ~131lbs -Patient exam not concerning for volume overload. -BP 90s over 50s -Cardiology Heart Failure consulted, Recommendations: -Restart bumex 4mg po BID -Resume SPECIAL EDUCATOR metolazone at discharge - 2000mg salt restriction, 1.5L fluid restriction -Strict I/O, daily standing weight PLAN: > Continue Bumex to 2mg po bid >2000mg salt restriction, 1.5L fluid restriction >Strict I/O, daily standing weight Mechanical aortic valve - Implanted 2010 - SPECIAL EDUCATOR warfarin 5mg daily, was bridging with Lovenox [...] DO Internal Medicine, PGY-2 Available on Voalte [phone] Subjective No acute overnight events. She reported [...] Intake/Output Summary (Last 24 hours) at 11/10/2020 5014 Last data filed at 11/10/2020 1616 Gross [...] Meza MD Department of Internal Medicine, Hospitalist [phone] * Lizbet Chan, RD - 11/10/2020 2:55 [...] Lizbet Chan MS, RD, LD Desk phone [phone] | Available on Voalte * Caitlin Novak [...] Bathroom Toilet: Standard Prior Function Level Of [place]: Independent with ADLs and functional transfers;Needed ass [...] Requires Equipment: Bath/shower chair Therapist: MICHAEL Martinez [id number] Date: 11/10/2020 * Laine Maynard RN - [...] provide intervention as indicated. Therapist: SLAVA Henriquez/Nancy [id number] Date: 11/09/2020 * Otto Hayes MD - [...] of lymphoma who presented via transfer from [facility] with concern for a left re ctus abdominal muscle hematoma and active extravasation. Acute blood loss anemia L flank/hip hematoma Left rectus abdominal hematoma Hematuria - Patient presented to [facility] with 2-day hx of LLQ pain, 10/10 [...] AV, torrential TR, markedly elevated CVP - SPECIAL EDUCATOR Bumex 3mg BID, metolazone 2.5mg 1 tab twice weekly - Dry weight ~131lbs -Patient exam not concerning for volume overload. -BP 90s over 50s -Cardiology Heart Failure consulted, Recommendations: -Restart bumex 4mg po BID -Resume SPECIAL EDUCATOR metolazone at discharge - 2000mg salt restriction, 1.5L fluid restriction -Strict I/O, daily standing weight PLAN: > Decrease Bumex to 2mg po bid >2000mg salt restriction, 1.5L fluid restriction >Strict I/O, daily standing weight Mechanical aortic valve - Implanted 2010 - SPECIAL EDUCATOR warfarin 5mg daily, was bridging with Lovenox [...] Meza MD Department of Internal Medicine, Hospitalist [phone] * Kavita Velasquez, RN - 11/08/2020 2:[address] Meza and [facility] 3 team of large bruising on [...] status occurs. Therapist: Wendy Samuels, [place], DPT [id number] Date: 11/08/2020 * Caitlin Novak OT - [...] Bathroom Toilet: Standard Prior Function Level Of [place]: Independent with ADLs and functional transfers;Needed ass [...] Comment: Dons BLE socks seated EOB with [id number] technique and standby dionne t. Participates in [...] Requires Equipment: Bath/shower chair Therapist: SLAVA Martinez/Nancy [id number] Date: 11/08/2020 * Fiordaliza Harding APRN-ENTRY LEVEL DRAFTER - 11/08/2020 9:15 AM CDT Heart Failure Progress Note NAME:Zaria Paulson :1960 AGE: 60 y.o. ADMISSION DATE: 11/04/2020 DAYS ADMITTED: LOS: 4 days Principal Problem: Nontraumatic rectus hematoma Active Problems: Transfusion reaction Recommendations: - continue diuresis-would resume SPECIAL EDUCATOR at discharge - resume SPECIAL EDUCATOR metolazone at discharge - resume warfarin with INR goal of 1.6-2.0 - do not bridge with heparin/lovenox - BMP daily. Magnesium level daily. Keep Potassium greater than 4.0 and Magnesi um greater than 2.0. - 2000 mg sodium dietary restriction. - Fluid Restriction 1.5L - Strict I/O. - Standing scale daily weight. - Spring Tacker consultation to discuss sodium restricted diet recommended. [...] HFpEF, EF: 60%. Major Complications or Comorbidities ([facility]): acute/ acute on chronic systolic [...] 2mg po BID per primary team GDMT SPECIAL EDUCATOR Changes BB NA ACEI/ARB/ARNI NA SGLT-2 Inhibitor [...] arteries - 11/07: Hgb 6.7->transfuse again today [facility] 06/08/2020: no significant CAD Paroxysmal atrial fibrillation > SPECIAL EDUCATOR amiodraone 200mg daily and warfarin - currently [...] the treatment plan as outlined by the ENTRY LEVEL DRAFTER The Complexity of medical decision making is [...] with my edits as outlined below. Staff traffic engineer: Shanell Ybarra DO * Otto Hayes MD [...] of lymphoma who presented via transfer from [facility] with concern for a left re ctus abdominal muscle hematoma and active extravasation. L flank/hip hematoma (new) Left rectus abdominal hematoma Hematuria - Patient presented to [facility] with 2-day hx of LLQ pain, 10/10 [...] AV, torrential TR, markedly elevated CVP - SPECIAL EDUCATOR Bumex 3mg BID, metolazone 2.5mg 1 tab twice weekly - Dry weight ~131lbs -Patient exam not concerning for volume overload. -BP 90s over 50s -Cardiology Heart Failure consulted, Recommendations: -Restart bumex 4mg po BID -Resume SPECIAL EDUCATOR metolazone at discharge - 2000mg salt restriction, 1.5L fluid restriction -Strict I/O, daily standing weight -BP typically low, however was 86/57 overnight PLAN: > Decrease Bumex to 2mg po bid >2000mg salt restriction, 1.5L fluid restriction >Strict I/O, daily standing weight Mechanical aortic valve - Implanted 2010 - SPECIAL EDUCATOR warfarin 5mg daily, was bridging with Lovenox [...] Hayes MD Internal Medicine, PGY1 Available on [facility] Zaria Davila patient reports feeling well this [...] Meza MD Department of Internal Medicine, Hospitalist [phone] * Otto Hayes MD - 11/07/2020 2:35 [...] of lymphoma who presented via transfer from [facility] with concern for a left re ctus abdominal muscle hematoma and active extravasation. Left rectus abdominal hematoma Hematuria - Patient presented to [facility] with 2-day hx of LLQ pain, 10/10 [...] AV, torrential TR, markedly elevated CVP - SPECIAL EDUCATOR Bumex 3mg BID, metolazone 2.5mg 1 tab twice weekly - Dry weight ~131lbs -Patient exam not concerning for volume overload. -BP 90s over 50s -Cardiology Heart Failure consulted, Recommendations: -Restart bumex 4mg po BID -Resume SPECIAL EDUCATOR metolazone at discharge - 2000mg salt restriction, 1.5L fluid restriction -Strict I/O, daily standing weight PLAN: > Restart Bumex 4mg po bid >2000mg salt restriction, 1.5L fluid restriction >Strict I/O, daily standing weight Mechanical aortic valve - Implanted 2010 - SPECIAL EDUCATOR warfarin 5mg daily, was bridging with Lovenox [...] morning. Patient endorses some nausea but states HelloFresh is working better than Vigix. Denies vomiting, abdo ovi pain, chest pain, [...] Meza MD Department of Internal Medicine, Hospitalist [phone] * Latesha Beltrán APRN-NP - 11/07/2020 11:17 [...] any questions or concerns. HOSSEIN Hanna Pgr [phone] IR Team Pager [phone] (After-hours and Weekends) Subjective Patient is a [...] of lymphoma who presented via transfer from [facility] with concern for a left re ctus abdominal muscle hematoma and active extravasation. Left rectus abdominal hematoma - Patient presented to [facility] with 2-day hx of LLQ pain, 10/10 [...] AV, torrential TR, markedly elevated CVP - SPECIAL EDUCATOR Bumex 3mg BID, metolazone 2.5mg 1 tab twice weekly - Dry weight ~131lbs -Patient exam not concerning for volume overload. -BP 90s over 50s PLAN: > Hold Bumex for now with active bleeding Mechanical aortic valve - Implanted 2010 - SPECIAL EDUCATOR warfarin 5mg daily, was bridging with Lovenox [...] on Voalte Subjective Zaria Paulson had a BOTTOM STEEP TENDER called last night due to hypotension following [...] hemoglobin increasing to 5.7. When seen this [facility] patient was mildly lethargic and had [...] Meza MD Department of Internal Medicine, Hospitalist [phone] * Summer Roth, RN - 11/06/2020 8:09 [...] Transfusion paused. Due to hypotension, RN called BOTTOM STEEP TENDER. Assessed patient at bedside. Ordered 500 cc [...] of lymphoma who presented via transfer from [facility] with concern for a left re ctus abdominal muscle hematoma and active extravasation. Left rectus abdominal hematoma - Patient presented to [facility] with 2-day hx of LLQ pain, 10/10 [...] AV, torrential TR, markedly elevated CVP - SPECIAL EDUCATOR Bumex 3mg BID, metolazone 2.5mg 1 tab twice weekly - Dry weight ~131lbs -Patient exam not concerning for volume overload. -BP 90s over 50s PLAN: > Hold Bumex for now with active bleeding Mechanical aortic valve - Implanted 2010 - SPECIAL EDUCATOR warfarin 5mg daily, was bridging with Lovenox [...] Meza MD Department of Internal Medicine, Hospitalist [phone] * Fadumo Beard RN - 11/04/2020 5:33 [...] 06/06/2020 Performed by Bao Hernández MD at [facility] ENDO COLONOSCOPY DIAGNOSTIC WITH SPECIMEN COLLECTION BY BRUSHING/ WASHING - FLEXI BLE N/A 06/06/2020 Performed by Bao Hernández MD at [facility] ENDO ANGIOGRAPHY CORONARY ARTERY WITH RIGHT AND LEFT HEART CATHETERIZATION N/A Performed by Higinio Clarke MD at [facility] CLOTH SANDER POSSIBLE PERCUTANEOUS CORONARY STENT PLACEMENT WITH ANGIOPLASTY N/A Performed by Higinio Clarke MD at [facility] CLOTH SANDER ESOPHAGOGASTRODUODENOSCOPY WITH SPECIMEN COLLECTION BY BRUSHING/ WASHING N/A 10/21/2020 Performed by Cosmo Gomez MD at [facility] ENDO SIGMOIDOSCOPY WITH CONTROL OF BLEEDING - FLEXIBLE N/A 10/21/2020 Performed by Cosmo Gomez MD at [facility] ENDO SIGMOIDOSCOPY WITH DIRECTED SUBMUCOSAL INJECTION - FLEXIBLE 10/21/2020 Performed by Cosmo Gomez MD at 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 Patient recently discharged from [facility] for GI bleed, found to have colonic [...] 06/06/2020 Performed by Bao Hernández MD at [facility] ENDO COLONOSCOPY DIAGNOSTIC WITH SPECIMEN COLLECTION BY BRUSHING/ WASHING - FLEXI BLE N/A 06/06/2020 Performed by Bao Hernández MD at [facility] ENDO ANGIOGRAPHY CORONARY ARTERY WITH RIGHT AND LEFT HEART CATHETERIZATION N/A Performed by Higinio Clarke MD at [facility] CLOTH SANDER POSSIBLE PERCUTANEOUS CORONARY STENT PLACEMENT WITH ANGIOPLASTY N/A Performed by Higinio Clarke MD at [facility] CLOTH SANDER ESOPHAGOGASTRODUODENOSCOPY WITH SPECIMEN COLLECTION BY BRUSHING/ WASHING N/A 10/21/2020 Performed by Cosmo Gomez MD at [facility] SIGMOIDOSCOPY WITH CONTROL OF BLEEDING - FLEXIBLE N/A 10/21/2020 Performed by Cosmo Gomez MD at [facility] SIGMOIDOSCOPY WITH DIRECTED SUBMUCOSAL INJECTION - FLEXIBLE 10/21/2020 Performed by Cosmo Gomez MD at [facility] END[facility] Social History Tobacco Use Smoking [...] Ref Range Units Ordered 0 Crossmatch Expires 11/07/2020,235 Record Check FOUND ABO/RH(D) O POS Antibody [...] (H) 0.8 - 1.2 HOSSEIN Ferro Pager [phone] * Homar Blackmon DO - 11/04/2020 7:58 [...] of lymphoma who presented via transfer from [facility] with concern for a left re ctus abdominal muscle hematoma and active extravasation. Left rectus abdominal hematoma - Patient presented to [facility] with 2-day hx of LLQ pain, 10/10 [...] AV, torrential TR, markedly elevated CVP - SPECIAL EDUCATOR Bumex 3mg BID, metolazone 2.5mg 1 tab twice weekly - Dry weight ~131lbs PLAN: > Hold Bumex for now with active bleeding Mechanical aortic valve - Implanted 2010 - SPECIAL EDUCATOR warfarin 5mg daily, was bridging with Lovenox [...] DO Department of Internal Medicine, PGY-3 Pager: [phone] Chief Complaint: "My left side hurts" History of Present Illness Ms. Paulson is a 60yo F with a PMH of cirrhosis from unclear etiology, non-ischem ic cardiomyopathy, chronic heart failure with preserved ejection fraction, mecha nical aortic valve on warfarin, paroxysmal atrial fibrillation, and remote hx of lymphoma who presented via transfer from [facility] with concern for a left re ctus [...] pain and went to the ED at [facility]. A CT revealed a rectus abdominal hematoma [...] obvious evidence of rashes. Musculoskeletal: Normal 5/5 hand-business improvement manager strength and distal strength in BLE. R OM normal. No joints swelling or erythema. Neurologic: No asterixis, Alerted and oriented . 5/5 hand-business improvement manager and distal stre ngth. Normal ROM. Sensation grossly intact. No focal weakness. Psych: Alerted and oriented, calm, normal affect Labs No results for input(s): NA, K, CL, CO2, BUN, CR, GAP, MG, PO4, GFR, ALBUMIN, TO TBILI, AST, ALT in the last 72 hours. Recent Labs 11/02/20 0000 INR 2.4 Radiology and Other Diagnostic Procedures Review No results found. @[facility] MID[facility] CITYPlayerPro@ Associated attestation - Albin Robertson MD - [...] Hemodynamically stable, not tachycardic Will hold all SPECIAL EDUCATOR BP meds and diuretics CBC every 8 [...] Woodward MD Urology PGY-3 Please page Urology chairperson anesthesiology with any questions __ HPI: Zaria Paulson is a 60 y.o. female with cirrhosis, CHF, mechanical aortic valve on warfarin, Afib who presents after spontaneous left rectus hematoma s/p IR embolization 11/06 now with gross hematuria. Patient initially presented to [facility] on 11/04 with abdominal distention and [...] 06/06/2020 Performed by Bao Hernández MD at [facility] COLONOSCOPY DIAGNOSTIC WITH SPECIMEN COLLECTION BY BRUSHING/ WASHING - FLEXI BLE N/A 06/06/2020 Performed by Bao Hernández MD at [facility] ENDO ANGIOGRAPHY CORONARY ARTERY WITH RIGHT AND LEFT HEART CATHETERIZATION N/A Performed by Higinio Clarke MD at [facility] CLOTH SANDER POSSIBLE PERCUTANEOUS CORONARY STENT PLACEMENT WITH ANGIOPLASTY N/A Performed by Higinio Clarke MD at [facility] CLOTH SANDER ESOPHAGOGASTRODUODENOSCOPY WITH SPECIMEN COLLECTION BY BRUSHING/ WASHING N/A 10/21/2020 Performed by Cosmo Gomez MD at [facility] END[facility] SIGMOIDOSCOPY WITH CONTROL OF BLEEDING - FLEXIBLE N/A 10/21/2020 Performed by Cosmo Gomez MD at [facility] SIGMOIDOSCOPY WITH DIRECTED SUBMUCOSAL INJECTION - FLEXIBLE 10/21/2020 Performed by Cosmo Gomez MD at [facility] Medications: Scheduled Meds:acetaminophen (TYLENOL EXTRA STRENGTH) [...] with further hematologic work up for bl neel. Consult type: Opinion with orders Assessment/Plan Principal Problem: Nontraumatic rectus hematoma Active Problems: Transfusion reaction 60 yo female with PMH of AVR '11 on coumadin, cirrhosis, NICM, HFpEF, PAF and ly mphoma who is transferred from [facility] with concern for left rectus abdomina l [...] TEG and platelets 2. AVR and PAF- SPECIAL EDUCATOR coumadin held 2/2 bleeding 3. Cirrhosis -with hx of colonic AVMs -unclear etiology 4. Hx of non-Hodgkin's lymphoma -in 2004, last seen by 09/21/20 -Diagnosed/treated in [place], [place], stage III per pt- I attempted to get records b ut all were destroyed in the [place] -s/p multiagent chemo -06/01/20 CT C/A/P without [...] the primary cardiology team. Franci Temple MD Spray Drier Operator Helper Available on Voalte and AMS Connect History [...] 06/06/2020 Performed by Bao Hernández MD at [facility] COLONOSCOPY DIAGNOSTIC WITH SPECIMEN COLLECTION BY BRUSHING/ WASHING - FLEXIBLE N/A 06/06/2020 Performed by Bao Hernández MD at [facility] ENDO ANGIOGRAPHY CORONARY ARTERY WITH RIGHT AND LEFT HEART CATHETERIZATION N/A 2020 Performed by Higinio Clarke MD at [facility] CLOTH SANDER POSSIBLE PERCUTANEOUS CORONARY STENT PLACEMENT WITH ANGIOPLASTY N/A 06/08/2020 Performed by Higinio Clarke MD at [facility] CLOTH SANDER ESOPHAGOGASTRODUODENOSCOPY WITH SPECIMEN COLLECTION BY BRUSHING/ WASHING N/A Performed by Cosmo Gomez MD at [facility] SIGMOIDOSCOPY WITH CONTROL OF BLEEDING - FLEXIBLE N/A 10/21/2020 Performed by Cosmo Gomez MD at [facility] SIGMOIDOSCOPY WITH DIRECTED SUBMUCOSAL INJECTION - FLEXIBLE 10/21/2020 Performed by Cosmo Gomez MD at [facility] END[facility] Social Hx: partner at bedside Social [...] 200 MG/DL Pertinent radiology reviewed. Kya Huizar APRN-ENTRY LEVEL DRAFTER Pager [phone] * Fiordaliza Harding APRN-NP - 11/07/2020 9:11 AM CDT Associated Order(s): CONSULT CARDIOLOGY PHYSICIAN Heart Failure Consult NAME:Zaria Paulson :1960 AGE: 60 y.o. ADMISSION DATE: 11/04/2020 DAYS ADMITTED: LOS: 3 days Principal Problem: Nontraumatic rectus hematoma Active Problems: Transfusion reaction Recommendations: - resume SPECIAL EDUCATOR bumex 4mg po BID-ordered - resume SPECIAL EDUCATOR metolazone at discharge - resume warfarin with INR goal of 1.6-2.0 - do not bridge with heparin/lovenox - BMP daily. Magnesium level daily. Keep Potassium greater than 4.0 and Magnesi um greater than 2.0. - 2000 mg sodium dietary restriction. - Fluid Restriction 1.5L - Strict I/O. - Standing scale daily weight. - Spring Tacker consultation to discuss sodium restricted diet recommended. - Pharmacy/Medication counseling recommended. - Case Management/Social Work recommended. - Physical Therapy consult recommended. - Heart Failure to sign off Follow Up: Berna Madsion APRN in the HF clinic on 11/15/2020 [...] HFpEF, EF: 60%. Major Complications or Comorbidities ([facility]): acute/ acute on chronic systolic [...] 11/07: resume bumex 4mg po BID GDMT SPECIAL EDUCATOR Changes BB NA ACEI/ARB/ARNI NA SGLT-2 Inhibitor [...] arteries - 11/07: Hgb 6.7->transfuse again today [facility] 06/08/2020: no significant CAD Paroxysmal atrial fibrillation > SPECIAL EDUCATOR amiodraone 200mg daily and warfarin - currently [...] BIOPSY - FLEXIBLE N/A 06/06/2020 Performed by aBo Hernández MD at [facility] COLONOSCOPY DIAGNOSTIC WITH SPECIMEN COLLECTION BY BRUSHING/ WASHING - FLEXI BLE N/A 06/06/2020 Performed by Bao Hernández MD at [facility] END[facility] ANGIOGRAPHY CORONARY ARTERY WITH RIGHT AND LEFT HEART CATHETERIZATION N/A Performed by Higinio Clarke MD at [facility] CLOTH SANDER POSSIBLE PERCUTANEOUS CORONARY STENT PLACEMENT WITH ANGIOPLASTY N/A Performed by Higinio Clarke MD at [facility] CLOTH SANDER ESOPHAGOGASTRODUODENOSCOPY WITH SPECIMEN COLLECTION BY BRUSHING/ WASHING N/A 10/21/2020 Performed by Cosmo Gomez MD at [facility] SIGMOIDOSCOPY WITH CONTROL OF BLEEDING - FLEXIBLE N/A 10/21/2020 Performed by Cosmo Gomez MD at [facility] SIGMOIDOSCOPY WITH DIRECTED SUBMUCOSAL INJECTION - FLEXIBLE 10/21/2020 Performed by Cosmo Gomez MD at [facility] END[facility] Family History Problem Relation [...] with my edits as outlined below. Staff traffic engineer: Shanell Ybarra DO * Meliza Almaguer MD [...] abdominal pain. Patient recently d is[facility] from [facility] for GI bleed, found to have colonic [...] the weekend please page the IR resident chairperson anesthesiology @ . documented in this encounter Miscellaneous Notes * Case Mgmt DC Plan - Delia Khan RN - 11/15/2020 2:27 PM CDT Case Management Progress Note NAME:Zarai Paulson : AGE: 60 y.o. ADMISSION DATE: 11/04/2020 DAYS ADMITTED: LOS: 11 days Todays Date: 11/15/2020 Plan Patient anticipated to discharge home tomorrow with [facility]. Interventions Support Support: Pt/Family Updates re:POC or DC Plan, Huddle/team update EMELIA reviewed EMR. EMELIA attended and participated in Med 3 huddle. Patient anticipated to be stable for discharge tomorrow. Patient will discharge home with [facility]. Info or Referral Information or Referral to Community Resources: No Needs Identified Discharge Planning Discharge Planning: Home Health NCM called [facility] ( ; ) and pr ovided an [...] Transportation Name, Phone and Availability #1: [facility] [phone] Does the patient use Medicaid Transportation?: No Next Level of Care (Acute Psych discharges only) Discharge Disposition Selected Continued Care - Admitted Since 11/04/2020 [facility] Coordination complete. Service Provider Selected Services Address Phone Fax Patient Preferred [facility] [address] [place] [address] [place] [address] JOVANNY Berger, RN [facility] Nurse Robot Operator [phone] and available on Voalte * Care Plan [...] reviewed EMR. NCM attended and participated in [facility] 3 huddle. NCM spoke with patient and to review PT/OT recommendations for home w ith intermittent assistance and home health. Patient confirms is availab le in home to assist as needed. She would like to pursue HH referrals with in[facility] providers in [place]. Reviewed available agencies with patient, plan to pursue referrals to [facility] and [facility]. Reviewed recommendation for shower chair in home. [...] referrals placed to the following agencies in [place], [place]: [facility] (ph. [phone]), [facility] (ph. [phone]). EMELIA spoke with Audrey from [facility]- patient approved for nursing, PT, [...] Transportation Name, Phone and Availability #1: [place] [phone] Does the patient use Medicaid Transportation?: No Next Level of Care (Acute Psych discharges only) Discharge Disposition Selected Continued Care - Admitted Since 11/04/2020 No services have been selected for the patient. JOVANNY Crum, RN Nurse Robot Operator Ph. [phone] Available on Voalte * Care [...] lymphoma who presented via transfer from [facility] with [facility] for a left rectus abdominal muscle hematoma and active extravasation." NCM reviewed EMR. NCM attended and participated in [facility] 3 huddle. NCM spoke with patient to [...] , [place], in a one-level home in [place], [place]. Patient plans to return home upon [...] PRN with SW/NCM Services Patient Address/Phone [address] [address] (home) Emergency Contact Extended [...] Transportation Name, Phone and Availability #1: [place] [phone] Does the patient use Medicaid Transportation?: No [...] Coverage Primary Insurance: Medicare Secondary Insurance: Medicaid ([place] Medicaid) Additional Coverage: RX (no concerns with prescription affordability) Source of Income Source Of Income: Other usp income, SSDI Financial Assistance Needed? No Psychosocial Needs Mental Health Mental Health History: No Substance Use History Substance Use History Screen: Yes Other NA Current/Previous Services PCP Isaac, [place], , Pharmacy [address] [facility] [address] [facility] [address] Durable Medical Equipment Durable Medical Equipment at [...] No Outpatient Therapy PT: No OT: No PROPERTY MAINTENANCE TECHNICIAN: No Longterm Facility/Jail SNF: No NH: No Inpatient Rehab IPR: No Long-Term Acute Care Hospital LTACH: No Acute Hospital Stay Acute Hospital Stay: In the past Was patient's stay within the last 30 days?: Yes Name of Hospital: [facility] When did patient receive care?: 10/20/20 Readmission Code Group: 9. Unrelated Readmision Lacy Sims, BSN, RN Nurse Robot Operator [phone]. [phone] Available on Voalte * Response Teams - Jeanette Garibay RN - 11/06/2020 6:30 AM CDT Pt remains in IR procedure. Unable to complete BOTTOM STEEP TENDER follow up at this time. Jeanette Garibay [...] for this patient on 11/06 at 0253 BOTTOM STEEP TENDER called for hypotension with blood transfusion for [...] Patient-Stat Aut hor Goal Type Problems ed? [facility] On track (10/23/2020 Yes Sheldon, 1:06 PM [...] CDT CBC Routine 11/08/2020 9:28 PM CDT AK BLOOD SMEAR PERIPHERAL Routine 11/08/2020 INTERP PHYS [...] Results * PHOSPHORUS (11/15/2020 6:10 AM CDT) [facility] Phosphorus 2.8 2.0 - 4.5 MG/DL [facility] Specimen Blood Performing Organization Address City/State/ZIP Code P shane Number [facility] [address] [place] [address] * COMPREHENSIVE METABOLIC PANEL (11/15/2020 6:10 AM CDT) Pathologist [facility] Sodium 132 (L) 137 - 147 MMOL/L [...] (L) >60 mL/min [facility] Comment: [place] The eGFR is not validated f or use in drug dosing adjustments. Continue to use estimated creatinine clearance per dosing reference text. Please contact the Clinical Pharmacist for questions. eGFR >60 >60 mL/min [facility] [place] Comment: The eGFR is not validated for use in drug dosing adjustments. Continue to use estimated creatinine clearance per dosing reference text. Please contact the Clinical Pharmacist for questions. Specimen Blood Performing Organization Address City/State/ZIP Code P shane Number [facility] [address] [place] [address] * CBC AND DIFF (11/15/2020 6:10 AM CDT) Pathologist [facility] White Blood 6.2 4.5 - 11.0 K/UL [...] P shane Number [facility] [address] [place] [address] * PROTIME INR (PT) (11/15/2020 6:10 AM CDT) INR 1.6 (H) 0.8 - 1.2 MAIN LAB Specimen Blood Performing Organization Address City/[facility]/ZIP Code P shane Number [facility] [address] [place] [address] * CULTURE-URINE W/SENSITIVITY (11/14/2020 5:35 PM CDT) [...] P shane Number [facility] [address] [place] [address] * CBC AND DIFF (11/14/2020 5:17 AM [...] P shane Number [facility] [address] [place] [address] * PHOSPHORUS (11/14/2020 5:17 AM CDT) Phosphorus 2.9 2.0 - 4.5 MG/DL [facility] Specimen Blood Performing Organization Address City/[facility]/ZIP Code P shane Number [facility] [address] [place] [address] * COMPREHENSIVE METABOLIC PANEL (11/14/2020 5:17 AM [...] (L) >60 mL/min [facility] Comment: [place] The eGFR is not validated f or use in drug dosing adjustments. Continue to use estimated creatinine clearance per dosing reference text. Please contact the Clinical Pharmacist for questions. eGFR >60 >60 mL/min [facility] [place] Comment: The eGFR is not validated for use in drug dosing adjustments. Continue to use estimated creatinine clearance per dosing reference text. Please contact the Clinical Pharmacist for questions. Specimen Blood Performing Organization Address City/State/ZIP Code P shane Number [facility] [address] [place] [address] * PROTIME INR (PT) (11/14/2020 5:17 AM CDT) INR 1.3 (H) 0.8 - 1.2 [facility] Specimen Blood Performing Organization Address City/[facility]/ZIP Code P shane Number [facility] [address] [place] [address] * HEMOGLOBIN & HEMATOCRIT (11/14/2020 12:27 AM CDT) Hemoglobin 8.0 (L) 12.0 - 15.0 GM/DL [facility] Hematocrit 23.7 (L) 36 - 45 % [facility] Specimen Blood Performing Organization Address City/[facility] Code P shane Number [facility] [address] [place] [address] * CBC AND DIFF (11/13/2020 7:12 AM [...] P shane Number [facility] [address] [place] [address] * PHOSPHORUS (11/13/2020 7:12 AM CDT) Phosphorus 3.0 2.0 - 4.5 MG/DL [facility] Specimen Blood Performing Organization Address City/[facility]/ZIP Code P shane Number [facility] [address] [place] [address] * COMPREHENSIVE METABOLIC PANEL (11/13/2020 7:12 AM [...] (L) >60 mL/min [facility] Comment: [place] The eGFR is not validated f or use in drug dosing adjustments. Continue to use estimated creatinine clearance per dosing reference text. Please contact the Clinical Pharmacist for questions. eGFR >60 >60 mL/min [facility] [place] Comment: The eGFR is not validated for use in drug dosing adjustments. Continue to use estimated creatinine clearance per dosing reference text. Please contact the Clinical Pharmacist for questions. Specimen Blood Performing Organization Address [facility]/ZIP Code P shaen Number [facility] [address] [place] [address] * PROTIME INR (PT) (11/13/2020 7:12 AM CDT) INR 1.3 (H) 0.8 - 1.2 [facility] Specimen Blood Performing Organization Address City/[facility]/ZIP Code P shane Number [facility] [address] [place] [id number] * CBC AND DIFF (11/12/2020 8:24 AM [...] Basophil Count Specimen Blood Performing Organization Address City/[facility]/ZIP Code P shane Number [facility] [address] [place] [address] * PHOSPHORUS (11/12/2020 8:24 AM CDT) Phosphorus 3.0 2.0 - 4.5 MG/DL [facility] Specimen Blood Performing Organization Address City/[facility]/ZIP Code P shane Number [facility] [address] [place] [address] * COMPREHENSIVE METABOLIC PANEL (11/12/2020 8:24 AM [...] (L) >60 mL/min [facility] Comment: [place] The eGFR is not validated f or use in drug dosing adjustments. Continue to use estimated creatinine clearance per dosing reference text. Please contact the Clinical Pharmacist for questions. eGFR >60 >60 mL/min [facility] [place] Comment: The eGFR is not validated for use in drug dosing adjustments. Continue to use estimated creatinine clearance per dosing reference text. Please contact the Clinical Pharmacist for questions. Specimen Blood Performing Organization Address City/[facility]/ZIP Code P shane Number [facility] [address] [place] [address] * PROTIME INR (PT) (11/12/2020 8:24 AM CDT) INR 1.2 0.8 - 1.2 [facility] Specimen Blood Performing Organization Address City/[facility]/ZIP Code P shane Number [facility] [address] [place] [address] * CBC AND DIFF (11/11/2020 6:05 AM CDT) Pathologist [facility] White Blood 6.6 4.5 - 11.0 K/UL [...] P shane Number [facility] [address] [place] [address] * PHOSPHORUS (11/11/2020 6:05 AM CDT) Pathologist [facility] Phosphorus 2.7 2.0 - 4.5 MG/DL [facility] Specimen Blood Performing Organization Address City/State/ZIP Code P shane Number [facility] [address] [place] [address] * COMPREHENSIVE METABOLIC PANEL (11/11/2020 6:05 AM CDT) Pathologist [facility] Sodium 134 (L) 137 - 147 MMOL/L [...] (L) >60 mL/min [facility] Comment: [place] The eGFR is not validated f or use in drug dosing adjustments. Continue to use estimated creatinine clearance per dosing reference text. Please contact the Clinical Pharmacist for questions. eGFR >60 >60 mL/min [facility] [place] Comment: The eGFR is not validated for use in drug dosing adjustments. Continue to use estimated creatinine clearance per dosing reference text. Please contact the Clinical Pharmacist for questions. Specimen Blood Performing Organization Address City/State/ZIP Code P shane Number MAIN LAB [address] [place] [address] * PROTIME INR (PT) (11/11/2020 6:05 AM CDT) INR 1.3 (H) 0.8 - 1.2 [facility] Specimen Blood Performing Organization Address City/[facility]/ZIP Code P shane Number [facility] [address] [place] [address] * CBC (11/10/2020 10:02 AM CDT) White [...] P shane Number [facility] [address] [place] [address] * PHOSPHORUS (11/10/2020 10:02 AM CDT) Phosphorus 2.8 2.0 - 4.5 MG/DL [facility] Specimen Blood Performing Organization Address City/[facility]/ZIP Code P shane Number [facility] [address] [place] [address] * COMPREHENSIVE METABOLIC PANEL (11/10/2020 10:02 AM [...] (L) >60 mL/min [facility] Comment: [place] The eGFR is not validated f or use in drug dosing adjustments. Continue to use estimated creatinine clearance per dosing reference text. Please contact the Clinical Pharmacist for questions. eGFR 57 (L) >60 mL/min [facility] [place] Comment: The eGFR is not validated for use in drug dosing adjustments. Continue to use estimated creatinine clearance per dosing reference text. Please contact the Clinical Pharmacist for questions. Specimen Blood Performing Organization Address City/State/ZIP Code P shane Number [facility] [address] [place] [address] * PROTIME INR (PT) (11/10/2020 10:02 AM CDT) INR 1.2 0.8 - 1.2 [facility] Specimen Blood Performing Organization Address City/[facility]/ZIP Code P shane Number [facility] [address] [place] [address] * CBC (11/09/2020 9:42 PM CDT) White [...] MAIN LAB Specimen Blood Performing Organization Address City/[facility] P shane Number [facility] [address] [place] [phone] * CBC (11/09/2020 1:27 PM CDT) White [...] MAIN LAB Specimen Blood Performing Organization Address City/[facility]/ZIP Code P shane Number [facility] [address] [place] [address] * HAPTOGLOBIN (11/09/2020 9:45 AM CDT) Haptoglobin <30 16 - 200 MG/DL [facility] Specimen Blood Performing Organization Address City/[facility] Code P shane Number [facility] [address] [place] [phone] * LDH-LACTATE DEHYDROGENASE (11/09/2020 5:43 AM CDT) Lactate 241 (H) 100 - 210 U/L [facility] Dehydrogenase Specimen Performing Organization Address [facility] P shane Number [facility] [address] [place] [address] * BILIRUBIN, DIRECT (11/09/2020 5:43 AM CDT) Bilirubin, 0.4 (H) <0.4 MG/DL [facility] LAB Direct Specimen Performing Organization Address [facility] P shane Number [facility] [address] [place] [address] * CBC (11/09/2020 5:43 AM CDT) White [...] [facility] Specimen Performing Organization Address [facility] Code P shane Number [facility] [address] [place] [id number] * PHOSPHORUS (11/09/2020 5:43 AM CDT) Phosphorus 2.7 2.0 - 4.5 MG/DL [facility] Specimen Blood Performing Organization Address City/State/ZIP Code P shane Number [facility] [address] [place] [address] * COMPREHENSIVE METABOLIC PANEL (11/09/2020 5:43 AM [...] (L) >60 mL/min [facility] Comment: [place] The eGFR is not validated f or use in drug dosing adjustments. Continue to use estimated creatinine clearance per dosing reference text. Please contact the Clinical Pharmacist for questions. eGFR 56 (L) >60 mL/min [facility] [place] Comment: The eGFR is not validated for use in drug dosing adjustments. Continue to use estimated creatinine clearance per dosing reference text. Please contact the Clinical Pharmacist for questions. Specimen Blood Performing Organization Address City/[facility]/ZIP Code P shane Number [facility] [address] [place] [address] * PROTIME INR (PT) (11/09/2020 5:43 AM CDT) INR 1.3 (H) 0.8 - 1.2 [facility] Specimen Blood Performing Organization Address City/State/ZIP Code P shane Number [facility] [address] [place] [address] * CBC (11/08/2020 9:28 PM CDT) White [...] MAIN LAB Specimen Blood Performing Organization Address City/[facility]/ZIP Code P shane Number MAIN LAB [address] [place] [id number] * PERIPHERAL SMEAR (11/08/2020 5:46 PM CDT) [...] this report. Specimen Blood Performing Organization Address City/[facility]/ZIP Code P shane Number MAIN LAB [address] [place] [address] * FIBRINOGEN (11/08/2020 5:46 PM CDT) Fibrinogen 347 200 - 400 MG/DL [facility] Specimen Blood Performing Organization Address City/[facility]/ZIP Code P shane Number [facility] [address] [place] [phone] * CT LOWER EXTREM WO CONT BILAT [...] 9:30 PM. Narrative Performed At [facility] LOWER [facility] CONT BILAT KU RAD RESULTS Technique: [...] MAIN LAB Specimen Blood Performing Organization Address City/[facility]/ZIP Code P shane Number [facility] [address] [place] [address] * CBC AND DIFF (11/08/2020 10:04 AM [...] P shane Number [facility] [address] [place] [address] * PHOSPHORUS (11/08/2020 2:32 AM CDT) Phosphorus 2.4 2.0 - 4.5 MG/DL [facility] Specimen Blood Performing Organization Address City/[facility]/ZIP Code P shane Number [facility] [address] [place] [address] * COMPREHENSIVE METABOLIC PANEL (11/08/2020 2:32 AM [...] (L) >60 mL/min [facility] Comment: [place] The eGFR is not validated f or use in drug dosing adjustments. Continue to use estimated creatinine clearance per dosing reference text. Please contact the Clinical Pharmacist for questions. eGFR 43 (L) >60 mL/min [facility] [place] Comment: The eGFR is not validated for use in drug dosing adjustments. Continue to use estimated creatinine clearance per dosing reference text. Please contact the Clinical Pharmacist for questions. Specimen Blood Performing Organization Address City/[facility]/ZIP Code P shane Number [facility] [address] [place] [address] * PROTIME INR (PT) (11/08/2020 2:32 AM CDT) INR 1.4 (H) 0.8 - 1.2 [facility] Specimen Blood Performing Organization Address City/[facility] P shane Number [facility] [address] [place] [address] * CBC AND DIFF (11/08/2020 2:32 AM [...] Basophil Count Specimen Blood Performing Organization Address [facility]/ZIP Code P shane Number [facility] [address] [place] [address] * CBC AND DIFF (11/07/2020 6:50 PM [...] P shane Number [facility] [address] [place] [address] * CBC AND DIFF (11/07/2020 9:14 AM [...] P shane Number [facility] [address] [place] [address] * PHOSPHORUS (11/07/2020 5:24 AM CDT) Phosphorus 2.7 2.0 - 4.5 MG/DL [facility] Specimen Blood Performing Organization Address City/State/ZIP Code P shane Number [facility] [address] [place] [address] * COMPREHENSIVE METABOLIC PANEL (11/07/2020 5:24 AM [...] (L) >60 mL/min [facility] Comment: [place] The eGFR is not validated f or use in drug dosing adjustments. Continue to use estimated creatinine clearance per dosing reference text. Please contact the Clinical Pharmacist for questions. eGFR 49 (L) >60 mL/min [facility] [place] Comment: The eGFR is not validated for use in drug dosing adjustments. Continue to use estimated creatinine clearance per dosing reference text. Please contact the Clinical Pharmacist for questions. Specimen Blood Performing Organization Address City/State/ZIP Code P shane Number [facility] [address] [place] [address] * PROTIME INR (PT) (11/07/2020 5:24 AM CDT) INR 1.5 (H) 0.8 - 1.2 [facility] Specimen Blood Performing Organization Address City/State/ZIP Code P shane Number [facility] [address] [place] [address] * CBC AND DIFF (11/07/2020 3:53 AM [...] Basophil Count Specimen Blood Performing Organization Address City/[facility] Code P shane Number [facility] [address] [place] [address] * CBC AND DIFF (11/06/2020 9:30 PM [...] Basophil Count Specimen Blood Performing Organization Address City/[facility]/ZIP Code P shane Number [facility] [address] [place] [address] * TRANSFUSE RBC'S (11/06/2020 7:36 PM CDT) Specimen Blood * TRANSFUSE RBC'S (11/06/2020 7:36 PM CDT) Specimen Blood * HEMOGLOBIN & HEMATOCRIT (11/06/2020 3:20 PM CDT) Hemoglobin 6.7 (L) 12.0 - 15.0 GM/DL [facility] Hematocrit 20.2 (L) 36 - 45 % [facility] Specimen Blood Performing Organization Address [facility] Code P shane Number [facility] [address] [place] [address] * URINALYSIS, MICROSCOPIC (11/06/2020 9:05 AM CDT) WBCs,UA PACKED 0 - 2 /HPF [facility] RBCs,UA PACKED 0 - 3 /HPF [facility] Specimen Urine - Urine Performing Organization Address [facility] P shane Number [facility] [address] [place] [address] * URINALYSIS DIPSTICK (11/06/2020 9:05 AM CDT) Color,UA RED [facility] Turbidity,UA CLEAR CLEAR-CLEAR [facility] Specific 1.037 (H) 1.003 - 1.035 [facility] [place]-Urine pH,UA 6.0 5.0 - 8.0 [facility] MAIN [...] Specimen Urine - Urine Performing Organization Address [facility] Code P shane Number [facility] [address] [place] [address] * URINE HGB FOR TRANFUSION REACTION (11/06/2020 9:05 AM CDT) Urine Hgb on 2+ [facility] Transfusion RX Specimen Urine Performing Organization Address City/[facility]/ZIP Code P shane Number [facility] [address] [place] [phone] * CBC AND DIFF (11/06/2020 8:48 AM [...] P shane Number [facility] [address] [place] [address] * PHOSPHORUS (11/06/2020 8:26 AM CDT) Phosphorus 3.5 2.0 - 4.5 MG/DL [facility] Specimen Blood Performing Organization Address City/State/ZIP Code P shane Number [facility] [address] [place] [address] * COMPREHENSIVE METABOLIC PANEL (11/06/2020 8:26 AM [...] (L) >60 mL/min [facility] Comment: [place] The eGFR is not validated f or use in drug dosing adjustments. Continue to use estimated creatinine clearance per dosing reference text. Please contact the Clinical Pharmacist for questions. eGFR 59 (L) >60 mL/min [facility] [place] Comment: The eGFR is not validated for use in drug dosing adjustments. Continue to use estimated creatinine clearance per dosing reference text. Please contact the Clinical Pharmacist for questions. Specimen Blood Performing Organization Address City/[facility]/ZIP Code P shane Number MAIN LAB [address] [place] [address] * PROTIME INR (PT) (11/06/2020 8:26 AM CDT) INR 1.9 (H) 0.8 - 1.2 [facility] Specimen Blood Performing Organization Address City/State/ZIP Code P shane Number [facility] [address] [place] [address] * POC GLUCOSE (11/06/2020 7:43 AM CDT) Glucose, POC 158 (H) 70 - 100 MG/DL [facility] Specimen Performing Organization Address City/State/[facility] P shane Number [facility] [address] [place] [address] * IR MESENTERIC ARTERIOGRAM DIAGNOSTIC (11/06/2020 5:50 [...] 5 Senegalese JAYLIN 1 catheter over a [employer] wire. The JAYLIN 1 catheter was adv [...] the left external iliac artery. The 5 kinyarwanda catheter was advanced over the wire and [...] REFERENCE LAB Specimen Blood Performing Organization Address City/[facility]/ZIP Code P shane Number REFERENCE LAB REFERENCE LAB See results for address. * PTT (APTT) (11/06/2020 3:49 AM CDT) APTT 29.6 24.0 - 36.5 SEC [facility] Specimen Blood Performing Organization Address [facility] P shane Number [facility] [address] [place] [address] * PROTIME INR (PT) (11/06/2020 3:49 AM CDT) INR 2.2 (H) 0.8 - 1.2 [facility] Specimen Blood Performing Organization Address [facility] P shane Number [facility] [address] [place] [address] * BNP (B-TYPE NATRIURETIC PEPTI) (11/06/2020 3:28 AM CDT) B Type 159.0 (H) 0 - 100 PG/ML [facility] Natriuretic Peptide Specimen Blood Performing Organization Address [facility] P shane Number [facility] [address] [place] [address] * TRANSFUSION REACTION EVALUATION (11/06/2020 3:28 AM [...] Code P shane Number MAIN LAB [address] [place] [address] * BASIC METABOLIC PANEL (11/06/2020 3:28 AM CDT) Pathologist [facility] Sodium 132 (L) 137 - 147 MMOL/L [...] (L) >60 mL/min [facility] Comment: [place] The eGFR is not validated f or use in drug dosing adjustments. Continue to use estimated creatinine clearance per dosing reference text. Please contact the Clinical Pharmacist for questions. eGFR 50 (L) >60 mL/min [facility] [place] Comment: The eGFR is not validated for use in drug dosing adjustments. Continue to use estimated creatinine clearance per dosing reference text. Please contact the Clinical Pharmacist for questions. Specimen Blood Performing Organization Address City/[facility]/ZIP [facility] P shane Number [facility] [address] [place] [phone] * CBC (11/06/2020 3:28 AM CDT) White [...] P shane Number [facility] [address] [place] [address] * POC LACTATE (11/06/2020 3:12 AM CDT) Pathologist [facility] LACTIC ACID POC 4.0 (HH) 0.5 - 2.0 MMOL/L [facility] Specimen Performing Organization Address City/[facility] Code P shane Number [facility] [address] [place] [address] * CBC AND DIFF (11/06/2020 12:00 AM CDT) Pathologist [facility] White Blood 9.3 4.5 - 11.0 K/UL [...] Basophil Count Specimen Blood Performing Organization Address City/[facility]/ZIP Code P shane Number [facility] [address] [place] [address] * PTT (APTT) (11/05/2020 9:49 PM CDT) APTT 36.2 24.0 - 36.5 SEC [facility] Specimen Blood Performing Organization Address City/[facility] Code P shane Number [facility] [address] [place] [address] * CBC AND DIFF (11/05/2020 5:28 PM [...] Basophil Count Specimen Blood Performing Organization Address City/[facility]/ZIP Code P shane Number [facility] [address] [place] [address] * PTT (APTT) (11/05/2020 2:20 PM CDT) APTT 33.9 24.0 - 36.5 SEC [facility] Specimen Performing Organization Address [facility] P shane Number [facility] [address] [place] [address] * PROTIME INR (PT) (11/05/2020 2:20 PM CDT) INR 2.0 (H) 0.8 - 1.2 [facility] Specimen Blood Performing Organization Address [facility] P shane Number [facility] [address] [place] [address] * CBC AND DIFF (11/05/2020 11:18 AM [...] Basophil Count Specimen Blood Performing Organization Address [facility] P shane Number [facility] [address] [place] [address] * LACTIC ACID(LACTATE) (11/05/2020 5:46 AM CDT) Lactic Acid 0.8 0.5 - 2.0 MMOL/L [facility] Specimen Blood Performing Organization Address City/[facility]/ZIP Code P shane Number [facility] [address] [place] [address] * PHOSPHORUS (11/05/2020 5:46 AM CDT) Phosphorus 2.7 2.0 - 4.5 MG/DL [facility] Specimen Blood Performing Organization Address City/[facility] P shane Number [facility] [address] [place] [address] * COMPREHENSIVE METABOLIC PANEL (11/05/2020 5:46 AM [...] (L) >60 mL/min [facility] Comment: [place] The eGFR is not validated f or use in drug dosing adjustments. Continue to use estimated creatinine clearance per dosing reference text. Please contact the Clinical Pharmacist for questions. eGFR >60 >60 mL/min [facility] [place] Comment: The eGFR is not validated for use in drug dosing adjustments. Continue to use estimated creatinine clearance per dosing reference text. Please contact the Clinical Pharmacist for questions. Specimen Blood Performing Organization Address City/[facility]/ZIP Code P shane Number [facility] [address] [place] [address] * PROTIME INR (PT) (11/05/2020 5:46 AM CDT) INR 2.2 (H) 0.8 - 1.2 [facility] Specimen Blood Performing Organization Address City/[facility]/ZIP Code P shane Number [facility] [address] [place] [address] * CBC AND DIFF (11/05/2020 5:46 AM [...] Basophil Count Specimen Blood Performing Organization Address City/[facility]/ZIP Code P shnae Number [facility] [address] [place] [address] * CHEST SINGLE VIEW (11/04/2020 9:11 PM [...] performance characteristics have been verified by the [facility] clinical laboratory. Fact sheet for providers: https://www.fda.gov/media/6683 13/download Fact sheet for patients: https://www.fda.gov/media/1437 12/download Specimen Flocked Swab - Nasopharyngeal Performing Organization Address City/State/ZIP Code P shane Number [facility] [address] [place] [address] * FREE T4-FREE THYROXINE (11/04/2020 8:40 PM CDT) T4-Free 1.1 0.6 - 1.6 NG/DL [facility] Specimen Performing Organization Address City/State/ZIP Code P shane Number [facility] [address] [place] [address] * TYPE & CROSSMATCH (11/04/2020 8:40 PM CDT) Units Ordered 7 [facility] Crossmatch 11/07/2020,2359 [facility] Expires Record Check FOUND [facility] ABO/RH(D) O POS [facility] Antibody Screen NEG [facility] Electronic YES [facility] Crossmatch Unit Number [id number] [facility] Blood Component RBC,ADSOL,LEUKO REDUCED [facility] Type Unit Division 00 [facility] Status OF Unit TRANSFUSED [facility] ISSUE DATE TIME [id number] [facility] PRODUCT CODE [id number] [facility] BLOOD TYPE O POS [facility] CODING STATUS 5100 [facility] BLOOD [id number] [facility] EXPIRATION DATE Transfusion OK TO TRANSFUSE [facility] Status Crossmatch COMPATIBLE,ELECTRONIC [facility] Result Unit Number [id number] [facility] Blood Component RBC,ADSOL,LEUKO REDUCED [facility] Type Unit Division 00 [facility] Status OF Unit TRANSFUSED [facility] ISSUE DATE TIME [facility] PRODUCT CODE [id number] [facility] BLOOD TYPE O POS [facility] CODING STATUS 5100 [facility] BLOOD [id number] [facility] EXPIRATION DATE Transfusion OK TO TRANSFUSE [facility] Status Crossmatch COMPATIBLE,ELECTRONIC [facility] Result Unit Number [id number] [facility] Blood Component RBC,ADSOL,LEUKO REDUCED [facility] Type Unit Division 00 [facility] Status OF Unit TRANSFUSED [facility] ISSUE DATE TIME [facility] PRODUCT CODE [id number] [facility] BLOOD TYPE O POS [facility] CODING STATUS 5100 [facility] BLOOD [id number] [facility] EXPIRATION DATE Transfusion OK TO TRANSFUSE [facility] Status Crossmatch COMPATIBLE,ELECTRONIC [facility] Result Unit Number [id number] [facility] Blood Component RBC,ADSOL,LEUKO REDUCED,1ST [facility] AB Type CONT. Unit Division 00 [facility] Status OF Unit TRANSFUSED [facility] ISSUE DATE TIME [id number] [facility] PRODUCT CODE [id number] [facility] BLOOD TYPE O POS [facility] CODING STATUS 5100 [facility] BLOOD [id number] [facility] EXPIRATION DATE Transfusion OK TO TRANSFUSE [facility] Status Crossmatch COMPATIBLE,ELECTRONIC [facility] Result Unit Number [id number] [facility] Blood Component RBC,ADSOL,LEUKO REDUCED,1ST [facility] AB Type CONT. Unit Division 00 [facility] Status OF Unit TRANSFUSED [facility] ISSUE DATE TIME [facility] PRODUCT CODE [id number] [facility] BLOOD TYPE O POS [facility] CODING STATUS 5100 [facility] BLOOD [id number] [facility] EXPIRATION DATE Transfusion OK TO TRANSFUSE [facility] Status Crossmatch COMPATIBLE,ELECTRONIC [facility] Result Specimen Blood,Peripheral Performing Organization Address City/[facility]/ZIP Code P shane Number [facility] [address] [place] [address] * TSH WITH FREE T4 REFLEX (11/04/2020 8:40 PM CDT) TSH 10.59 (H) 0.35 - 5.00 MCU/ML [facility] Specimen Blood Performing Organization Address City/[facility]/ZIP Code P shane Number [facility] [address] [place] [address] * BNP (B-TYPE NATRIURETIC PEPTI) (11/04/2020 8:40 PM CDT) B Type 279.0 (H) 0 - 100 PG/ML [facility] Natriuretic Peptide Specimen Blood Performing Organization Address City/State/ZIP Code P shane Number [facility] [address] [place] [address] * COMPREHENSIVE METABOLIC PANEL (11/04/2020 8:40 PM [...] (L) >60 mL/min [facility] Comment: [place] The eGFR is not validated f or use in drug dosing adjustments. Continue to use estimated creatinine clearance per dosing reference text. Please contact the Clinical Pharmacist for questions. eGFR >60 >60 mL/min [facility] [place] Comment: The eGFR is not validated for use in drug dosing adjustments. Continue to use estimated creatinine clearance per dosing reference text. Please contact the Clinical Pharmacist for questions. Specimen Blood Performing Organization Address City/State/ZIP Code P shane Number [facility] [address] [place] [address] * PROTIME INR (PT) (11/04/2020 8:40 PM CDT) INR 2.5 (H) 0.8 - 1.2 [facility] Specimen Blood Performing Organization Address City/[facility]/ZIP Code P shane Number [facility] [address] [place] [address] * CBC AND DIFF (11/04/2020 8:40 PM [...] Basophil Count Specimen Blood Performing Organization Address City/[facility]/ZIP Code P shane Number [facility] [address] [place] [address] * ECG-SCAN (11/04/2020 12:00 AM CDT) Narrative [...] from 25 mg tablet by mouth as SPECIAL EDUCATOR Med List Needed for Nausea or Vomiting. 06/12/2020 11/05/[address] Take one Removed from (PROTONIX) 40 mg tablet by SPECIAL EDUCATOR Med List tabletIndications: mouth daily. dyspepsia, Indications: [...] Date Medication Sig Dispensed Refills 12/01/2020 omeprazole ([facility] Take 40 mg by 0 40 [...] 30 mEq, Oral, ONCE, 1 dose, On [facility] CHRYSTAL Simmons) 11/13/20 at 0730, - Tablet [...]
--- NOTE | 2020-12-22 14:10 | ED General ---
General Chief Complaint: Altered Mental Status Stated Complaint: ABD LAB Source of Information: Patient, Old Records, Spouse History of Present Illness Date Seen by Provider: Dec 22, 2020 Time Seen by Provider: 14:04 Initial Comments 60 yo female presenting to the ED after she was called at home by [facility] Cardiology provider stating she had low sodium and needed to come to the ED and be admitted. She presented to the ED here in [place] stating she has no new symptoms or concerns. She denies feeling light headed, dizzy, nausea, vomiting, new weakness. She has liver failure and ascites and states she needs her abdomen drained but her INR has been too high to allow that. She was not sure what she needed to do or what was the concern about her sodium. Associated Systoms: No Chest Pain, No Cough, No Diaphoresis, No Fever/Chills, No Headaches, No Nausea/Vomiting, No Seizure, No Shortness of Air, No Syncope Allergies and Home Medications Allergies Coded Allergies: No Known Drug Allergies (Unverified , 09/09/20) Patient Home Medication List Home Medication List Reviewed: Yes Cephalexin (Cephalexin) 500 Mg Tablet, 500 MG PO TID Prescribed by: WADE JOHNSON on 12/13/20 9040 Review of Systems Review of Systems Constitutional: No chills, No dizziness, No fever EENTM: No blurred vision, No vision loss Respiratory: no symptoms reported Cardiovascular: no symptoms reported Gastrointestinal: other (chronic abdominal distention with ascites and liver failure, tender to palpation LLQ that is chronic for patient) Genitourinary: no symptoms reported Musculoskeletal: No muscle twitching, No muscle weakness Skin: No rash Psychiatric/Neurological: Denies Seizure Past Uizoxxw-Cdmqyo-Ercmfc Hx Seasonal Allergies Seasonal Allergies: No Past Medical History Surgery/Hospitalization HX: TITANIUM VALVE Surgeries: Yes (Lymphnode removal) Abdominal, Cardiac, Hysterectomy, Open Heart Surgery, Valve Replacement Respiratory: No Cardiac: Yes Coronary Artery Disease, Valvular Heart Disease Neurological: No [employer]ER History: Hysterectomy Genitourinary: No Gastrointestinal: Yes Liver Disease/Jaundice Musculoskeletal: No Endocrine: No HEENT: No Cancer: Yes (Non-Hodgkins lymphoma) Lymphoma Did You Recieve Any Treatments: Yes What Type of Treatment Did You: Chemotherapy Psychosocial: No Depression Integumentary: No Blood Disorders: Yes (Anemia) Physical Exam Vital Signs Vital Signs - First Documented 12/22/20 13:39 Temp 36.5 Pulse 117 Resp 14 B/P (MAP) 100/54 (69) Pulse Ox 98 O2 Delivery Room Air Capillary Refill : Height, Weight, BMI Height: '" Weight: lbs. oz. kg; 30.00 BMI Method: General Appearance: No Apparent Distress, Chronically ill HEENT: PERRL/EOMI, Pharynx Normal Respiratory: Chest Non Tender, No Accessory Muscle Use, No Respiratory Distress, Decreased Breath Sounds Cardiovascular: Normal Peripheral Pulses, Tachycardia Gastrointestinal: Normal Bowel Sounds, No Pulsatile Mass, Soft, Distended (ascites present with fluid wave); No Guarding, No Rebound; Tenderness (focal tenderness LLQ, chronic per patient report) Rectal: Deferred Neurologic/Psychiatric: Alert, Oriented x3 Skin: Warm/Dry Progress/Results/Core Measures Suspected Sepsis SIRS Temperature: Pulse: Respiratory Rate: Blood Pressure / Mean: Results/Orders Vital Signs/I&O 12/22/20 12/22/20 13:39 15:15 Temp 36.5 Pulse 117 118 Resp 14 18 B/P (MAP) 100/54 (69) 101/54 Pulse Ox 98 96 O2 Delivery Room Air Room Air Capillary Refill : Progress Note #1: Progress Note Patient had been advised by heart failure clinic at [facility] to present to ED at for eval and admit for her worsening hyponatremia despite holding diuretics. When discussing with the patient the risks of low sodium and how they might manage and treated with IV fluids generally balanced with diuresis as well as possible draining of ascites she and her both voiced that she would need that done at and that could not be done here at the stand-alone emergency department. Patient and spouse were asking if they should just go dir ectly to rather than wait here any longer since blood work was just done a few hours ago and she was advised to come up to . I advised him that I would try and check with since I had not spoken with them directly but if they wanted to go directly to since that was the initial direction they received the certainly could. Since she just had labs and testing done a few hours prior to coming to the ED will hold off on repeating those tests. Progress Note #2: Progress Note [id number] Call placed to [facility] and reached CHRYSTAL Romo, about the patient. She took some basic information and will check with heart failure staff to see if there was something that they wanted done here in the stand alone ED or just to have pt come up to as initially directed. [id number] no word yet from but updated pt to see if she wanted to wait longer or to proceed up to . She stated she would prefer to go on to rather than sit here and wait longer, especially since there were not many options for treatment available here in the ED. She would rather go to if she is going to have to be admitted and have her drive her. I told her that seemed reasonable since she has already been holding her diuretics and still had Na drop from 125 Friday to 122 today. If she gets IVF it will be a fine line to balance hydration without overloading her. As patient was leaving, Clarissa called back and stated that Heart Failure provider recommended repeat work up here in ED and then call back after those results were all done. I advised them of this recommendation and they still wanted to go to rather than wait here for repeat labs from this am. Clarissa called back after the patient and had left and was getting information to see about presenting information to Medical team for admit. I advised her the patient had signed a declination of repeating labs and treatment and had left to go to by POV with her . As this had been the initial recommendation from heart failure staff, they decided to follow that rather than wait here longer. Departure Impression Primary Impression: Hyponatremia Disposition: 01 HOME, SELF-CARE Condition: Stable Departure-Patient Inst. Decision time for Depature: 15:20 Referrals: SELF,DULCE MARIA OLVERA (PCP/Family) Primary Care Physician Patient Instructions: Hyponatremia (DC) Add. Discharge Instructions: Follow up with [facility] for further evaluation and treatment as directed earlier by Cardiology Heart Failure staff. All discharge instructions reviewed with patient and/or family. Voiced understanding. BHARGAV BLOCK MD Dec 22, 2020 14:10
[2020-12-22 15:15] VITALS: BP 101/54
== END 2020-12-22 15:15 | disposition home or self-care (01) ==
LOC: EDUNIT# 13:28 → ER FS 13:30
DX: E87.1 Hypo-osmolality and hyponatremia (principal)

== ENCOUNTER → 2020-12-22 | Outpatient (CLI) | payer MEDICARE, MEDICAID ==
[2020-12-22 08:20] LABS: HEMATOCRIT 25 % (35-52); HEMOGLOBIN 8.3 g/dL (11.5-16.0); LYMPHOCYTES % (AUTO) 1 % (12-44); MEAN CORPUSCULAR HEMOGLOBIN 29 pg (25-34); MEAN CORPUSCULAR HGB CONC 33 g/dL (32-36); MEAN CORPUSCULAR VOLUME 88 fL (80-99); NEUTROPHILS % (AUTO) 95 % (42-75); PLATELET COUNT 398 10^3/uL (130-400); WHITE BLOOD COUNT 23.9 10^3/uL (4.3-11.0)
[2020-12-22 08:21] LABS: BASOPHILS # (AUTO) 0.1 10^3/uL (0.0-0.1); BASOPHILS % (AUTO) 0 % (0-10); EOSINOPHILS % (AUTO) 0 % (0-10); LYMPHOCYTES # (AUTO) 0.3 X 10^3 (1.0-4.0); MONOCYTES # (AUTO) 0.6 X 10^3 (0.0-1.0); MONOCYTES % (AUTO) 3 % (0-12); NEUTROPHILS # (AUTO) 22.7 X 10^3 (1.8-7.8)
[2020-12-22 08:33] LABS: INR 3.4 (0.8-1.4)
[2020-12-22 08:42] LABS: POTASSIUM 4.6 MMOL/L (3.6-5.0)
[2020-12-22 08:43] LABS: CALCIUM 8.2 MG/DL (8.5-10.1); CREATININE SERUM 1.25 MG/DL (0.60-1.30)
[2020-12-22 08:51] LABS: ANISOCYTOSIS SLIGHT; BAND NEUTROPHILS 4 %; BASOPHILS % (MANUAL) 0 %; EOSINOPHILS % (MANUAL) 0 %; LYMPHOCYTES % (MANUAL) 1 %; MONOCYTES % (MANUAL) 2 %; NEUTROPHILS % (MANUAL) 93 %
[2020-12-22 08:52] LABS: HYPOCHROMASIA MODERATE
== END ==
LOC: IHC 08:02
PROVIDERS: ATTEND Family Medicine
DX: I13.0 Hypertensive heart and chronic kidney disease with heart failure and stage 1 through stage 4 chronic kidney disease, or unspecified chronic kidney disease (principal); I50.33 Acute on chronic diastolic (congestive) heart failure; N18.9 Chronic kidney disease, unspecified; Z79.01 Long term (current) use of anticoagulants
CPT/HCPCS: 80048; 85007; 85027; 85610

== ENCOUNTER → 2020-12-31 | Outpatient (CLI) | payer MEDICARE, MEDICAID | LOC: IHC 08:45 | PROVIDERS: ATTEND Family Medicine | DX: D50.9 Iron deficiency anemia, unspecified (principal); D63.1 Anemia in chronic kidney disease | CPT/HCPCS: 85018 ==

== ENCOUNTER → 2021-01-01 | Outpatient (CLI) | payer MEDICARE, MEDICAID ==
[2021-01-01 16:50] LABS: INR 1.6 (0.8-1.4); PROTHROMBIN TIME PATIENT 19.1 SEC (12.2-14.7)
== END ==
LOC: IHC 16:18
PROVIDERS: ATTEND Family Medicine
DX: I48.0 Paroxysmal atrial fibrillation (principal)
CPT/HCPCS: 85610

== ENCOUNTER → 2021-01-05 | Outpatient (CLI) | payer MEDICARE, MEDICAID ==
[2021-01-05 16:55] LABS: INR 1.2 (0.8-1.4); PROTHROMBIN TIME PATIENT 15.8 SEC (12.2-14.7)
== END ==
LOC: IHC 16:36
PROVIDERS: ATTEND Family Medicine
DX: L02.214 Cutaneous abscess of groin (principal); Z79.01 Long term (current) use of anticoagulants
CPT/HCPCS: 85610

== ENCOUNTER → 2021-01-08 | Outpatient (CLI) | payer MEDICARE, MEDICAID ==
[2021-01-08 10:19] LABS: PROTHROMBIN TIME PATIENT 16.2 SEC (12.2-14.7)
[2021-01-08 10:20] LABS: INR 1.3 (0.8-1.4)
[2021-01-08 10:45] LABS: CALCIUM 8.7 MG/DL (8.5-10.1); CREATININE SERUM 1.21 MG/DL (0.60-1.30); POTASSIUM 4.1 MMOL/L (3.6-5.0)
== END ==
LOC: IHC 09:39
PROVIDERS: ATTEND Family Medicine
DX: I50.33 Acute on chronic diastolic (congestive) heart failure (principal); Z79.01 Long term (current) use of anticoagulants
CPT/HCPCS: 80048; 85610

== ENCOUNTER → 2021-01-12 | Outpatient (CLI) | payer MEDICARE, MEDICAID ==
[2021-01-12 14:04] LABS: INR 1.2 (0.8-1.4); PROTHROMBIN TIME PATIENT 15.2 SEC (12.2-14.7)
== END ==
LOC: LAB FS 12:47
DX: I48.0 Paroxysmal atrial fibrillation (principal); I07.1 Rheumatic tricuspid insufficiency; Z79.01 Long term (current) use of anticoagulants
CPT/HCPCS: 85610

== ENCOUNTER → 2021-01-18 | Outpatient (CLI) | payer MEDICARE, MEDICAID ==
[2021-01-18 10:48] LABS: CREATININE SERUM 1.31 MG/DL (0.60-1.30); POTASSIUM 4.6 MMOL/L (3.6-5.0)
[2021-01-18 10:49] LABS: CALCIUM 8.9 MG/DL (8.5-10.1)
== END ==
LOC: IHC 09:39
PROVIDERS: ATTEND Family Medicine
DX: N18.32 Chronic kidney disease, stage 3b (principal)
CPT/HCPCS: 80048

== ENCOUNTER → 2021-02-01 | Outpatient (CLI) | payer MEDICARE, MEDICAID ==
[2021-02-01 13:22] LABS: INR 1.1 (0.8-1.4)
== END ==
LOC: IHC 12:46
DX: Z79.01 Long term (current) use of anticoagulants (principal)
CPT/HCPCS: 85610

== ENCOUNTER → 2021-02-27 | Outpatient (REF) | payer MEDICARE, MEDICAID ==
[2021-02-27 16:14] LABS: INR 1.3 (0.8-1.4); PROTHROMBIN TIME PATIENT 16.5 SEC (12.2-14.7)
== END ==
LOC: FSOP 15:47
PROVIDERS: ATTEND Family Medicine
DX: Z95.2 Presence of prosthetic heart valve (principal); Z79.01 Long term (current) use of anticoagulants
CPT/HCPCS: 36415; 85610

== ENCOUNTER → 2021-03-06 | Outpatient (CLI) | payer MEDICARE, MEDICAID ==
--- NOTE | 2021-03-06 15:10 | Diagnostic Imaging Report ---
INDICATION: Cough. TIME OF EXAM: 2:24 PM. COMPARISON: Correlation is made with the prior chest from 11/05/2019. FINDINGS: Changes of median sternotomy are noted. The heart is enlarged but stable. There is central pulmonary venous congestion but no evidence of overt failure. No effusion or pneumothorax is identified. There appears to be a fracture involving the left posterior 6th rib. IMPRESSION: Cardiomegaly and central venous congestion. There appears to be an age-indeterminate left posterior 6th rib fracture. Dictated by: Dictated on workstation # [id number]
== END ==
LOC: RAD FS 14:11
PROVIDERS: ATTEND Family Medicine
DX: I51.7 Cardiomegaly (principal); I87.8 Other specified disorders of veins
CPT/HCPCS: 71046

== ENCOUNTER 2021-03-11 12:11 | Emergency (ER) | payer MEDICARE, MEDICAID ==
[~2021-03-11] VITALS: Ht 157.5 cm; Wt 52.6 kg
--- OUTSIDE RECORDS SUMMARY | 2021-03-11 12:16 | XMS REPORT | Clinical Summary ---
Author [facility] Address Unknown Phone Unavailable Care Team Providers Care Senior Research Scientist Name Role Phone Self, Garfield OLVERA PCP Riley Hopson MD [phone] Gino Pandya TELEVISION REPAIRMAN-HEADLINER INSTALLER [phone] Teri Brandon [phone] Unavailable Source Comments Some departments are not documenting in the electronic medical record. If you d o not see the information that you expected, contact Release of Information in [facility] Information Management department at [phone] for further assistan ce in locating additional records.[facility] Allergies No known active allergies Medications End Date Status Medication Sig Dispensed Refills Start Date Active levothyroxine (SYNTHROID) Take 75 mcg 0 75 mcg tablet by mouth daily 30 minutes before breakfast. Active fluticasone propionate Apply to 0 (FLONASE) 50 each nostril mcg/actuation nasal as directed spray, suspension daily. Shake bottle gently before using. Active VASCEPA 1 gram capsule TAKE 2 0 03/22/2 02 CAPSULES BY 0 MOUTH TWICE DAILY WITH MEALS Active calcium carbonate Take 1,250 mg 0 (OS-KRUPA) 1250 mg tablet by mouth daily. Active hyoscyamine (ANASPAZ) Place one 180 tablet 0 10/23 0.125 mg rapid dissolve tablet under 1 tablet tongue every 4 hours as needed. Active pantoprazole DR Take 40 mg by 0 (PROTONIX) 40 mg tablet mouth twice daily. Active sertraline (ZOLOFT) 100 Take one 180 tablet 0 / mg tablet tablet by 1 mouth twice daily. Active warfarin (COUMADIN) 1 mg Take two 120 tablet 0 1 tablet tablets by 1 mouth daily. Active midodrine (PROAMATINE) 5 Take three 270 tablet 3 1 mg tablet tablets by 1 mouth three times daily. Active ferrous gluconate Take one 90 tablet 1 01/05/20 2 (FERGON) 240 mg (27 mg tablet by 1 iron) tablet mouth daily. 02/01/2022 Active bumetanide (BUMEX) 1 mg Take five 900 tablet 3 tablet tablets by 1 mouth twice daily for 360 days. Active empagliflozin (JARDIANCE) Take one 90 tablet 3 10 mg tablet tablet by 1 mouth daily. Active oxybutynin chloride Take one 180 tablet 0 (DITROPAN) 5 mg tablet tablet by 1 mouth daily. Additional Information Patient taking differently: 5 mg Oral THREE TIMES DAILY, Reported on 02/19/2021 Active ascorbic acid (VITAMIN C) Take 500 mg 0 500 mg tablet by mouth daily. Active MULTIVITAMIN PO Take 1 tablet 0 by mouth daily. Active spironolactone Take three 540 tablet 3 (ALDACTONE) 25 mg tablet tablets by 1 mouth twice daily. Take with food. 02/19/2021 Discontinued (Other) ergocalciferol (VITAMIN Take 1 0 D-2) 1,250 mcg (50,000 capsule by 1 unit) capsule mouth every 7 days. 02/12/2021 Discontinued (Reorder) oxybutynin chloride Take one 180 tablet 0 (DITROPAN) 5 mg tablet tablet by 1 mouth three times daily. 02/21/2021 Discontinued (Reorder) spironolactone Take three 274 tablet 3 (ALDACTONE) 25 mg tablet tablets by 1 mouth daily. Take with food. Active Problems Patient Care Coordination Note Please complete a medical screening exam to rule out emergent issues. If no emergent needs are identified, please contact the MVP Team. MVP Team Contact: REI Mckinley, or Voalte Utilization: ED Visits: 0 Admissions: 6 within the past 12 months Test Manager of Utilization: Clinical: Disease Progression/Chronic Symptoms Common Complaint: HF exacerbation (SOA, Fatigue, volume overload); GIB Pattern of Concern: Patient with <1 year prognosis surrounding sick heart and liver, ongoing work with palliative surrounding GoC, ongoing work with care team at symptom onset Recommendation: Continue work with palliative surrounding GoC and potential palliative interventions or hospice LOC, Continue communication with clinics at symptom onset Community Support: Laura [phone] (also offers hospice services); DPOA (patient's sons): Rosales Rodgers ([phone]), lBair Chambers ([phone]) Providers: PCP: (external) Gabriel Gray ([phone]); Palliative: Gino Pandya ([phone]); CVM: Basilia Gaitan ([phone]); Transplant: Jeanette Garcia ([phone]); HF: Junaid Longo ([phone]); Urology: Fernie Abreu ([phone]) Disposition on last DC: 2021 home with [facility] (SN, PT, OT), on cardiac diet with fluid restriction Date of last MVP Communication: 12/25/2020 Problem Noted Date Fall 2021 Acute kidney injury superimposed on CKD 01/02/2021 Severe malnutrition 12/27/2020 Severe sepsis 12/22/2020 Acute on chronic diastolic (congestive) heart failure 12/10/2020 RVF (right ventricular failure) 11/30/2020 Hyponatremia 11/30/2020 Acute on chronic heart failure 11/29/2020 Hematoma of left flank 11/15/2020 Hematoma of right flank 11/15/2020 Hematuria 11/15/2020 Nontraumatic rectus hematoma 11/04/2020 Hypoalbuminemia 10/23/2020 [...] Resolved Problems Problem Noted Date Resolved Date Vaginal bleeding 11/15/2020 12/22/2020 Transfusion reaction 11/06/2020 11/15/2020 Overview: Formatting of this note is different fr om the original. Underlying Disease Transfusion Reaction NAME:Zaria Rodgers :1960 AGE: 60 y.o. ADMISSION DATE: 11/04/2020 D AYS ADMITTED: LOS: 2 days Binh RODGERS is 60 y.o. female wit h history [...] Encounters Care Team Description Date Type Specialty Karsten Griffiths MD Baze, Amy, RT(R)(),LRT Alondra Augustin RN Chronic heart failure with preserved eje ction fraction (HCC) 03/08/2021 Hospital Radiology Encounter 03/08/2021 Travel Helen Waggoner RN Anticoagulation (INR 2.2) 03/07/2021 Anticoagulation Cardiology Kathryn Barbosa MA Labs Only 03/07/2021 Documentation Cardiology Reagan Edgar RN Precertification (Medicare) 03/06/2021 Documentation Cardiology Ruddy Connelly MD Lind, Ashley, RT(R)(),LRT Heena Lundy RN Chronic heart failure with preserved eje ction fraction (HCC) 03/05/2021 Hospital Radiology Encounter Josi Purvis BSN Anticoagulation (INR 6.3) 03/05/2021 Anticoagulation Cardiology Allison Marti MD Appointment Request 03/05/2021 Telephone Transplant Surgery Sherin Mata BSN Other cirrhosis of liver (HCC) (Primary Dx); Severe malnutrition (HCC); Stage 3b chronic kidney disease (HCC); Acute kidney injury superimposed on CKD (HCC) 03/05/2021 Orders Only Cardiology 03/05/2021 Travel Karsten Griffiths MD Sage, Amber, RT(R)(),LRT Claudia Crenshaw RN Chronic heart failure with preserved eje ction fraction (HCC) 03/02/2021 Hospital Radiology Encounter 03/02/2021 Travel Josi Purvis BSN Anticoagulation (INR 1.3) 02/28/2021 Anticoagulation Cardiology Aarti Mars RN Nonrheumatic tricuspid valve regurgitati on (Primary Dx); Encounter for screening laboratory testing for COVID-19 virus in asymptomatic patient 02/22/2021 Prep for Case Cardiology Aarti Mars RN 02/22/2021 Prep for Case Cardiology Aarti Mars RN Severe tricuspid regurgitation (Primary Dx) 02/22/2021 Pre-Admit Cardiology Orders Only Aarti Mars RN Navigation Assessment (TR/Triluminate ev aluation) 02/22/2021 Patient Profile Cardiology Fernie Camargo LPN Medication Refill 02/21/2021 Refill Cardiology Fernie Camargo LPN 02/20/2021 Telephone Cardiology Carlos Longo MD Heart Failure (6 month follow up); Follo w Up 02/19/2021 Office Visit Cardiology Telehealth Scout Nelson MD Johnson, Monica, Jeanette [place], RT(R)(),LRT Chronic heart failure with preserved eje ction fraction (HCC) 02/19/2021 Hospital Radiology Encounter Josi Purvis BSN Anticoagulation (INR 1.4) 02/19/2021 Anticoagulation Cardiology Fernie Camargo LPN Tachycardia 02/19/2021 Telephone Cardiology 02/19/2021 Travel Blair Greene MD Keating, Natalie, RN Clegg, Rachel, RT(R)(),LRT Chronic heart failure with preserved eje ction fraction (HCC) 02/12/2021 Hospital Radiology Encounter Helen Waggoner RN Anticoagulation (INR 1.7) 02/12/2021 Anticoagulation Cardiology 02/12/2021 Travel Kathryn Barbosa MA Labs Only 02/12/2021 Documentation Cardiology Josi Purvis BSN Anticoagulation 02/09/2021 Anticoagulation Cardiology Allegra Cotter BSN Anticoagulation (INR 1.5) 02/09/2021 Anticoagulation Cardiology Josi Purvis, BSN Paroxysmal atrial fibrillation (HCC); Chronic heart failure with preserved ejection fraction (HCC) 02/09/2021 Orders Only Cardiology Fernie Camargo LPN Lab Results 02/09/2021 Documentation Cardiology Basilia Gaitan, TELEVISION REPAIRMAN-HEADLINER INSTALLER Jose Jovel MD Clegg, Rachel, RT(R)(),LRT Canceled (Patient-Rescheduled) 02/06/2021 Hospital Radiology Encounter Nithya Madison, TELEVISION REPAIRMAN-HEADLINER INSTALLER Heart Failure; Follow Up 02/06/2021 Office Visit Cardiology Jolie Steel BSN Other (attempting to schedule weekly par acentesis) 02/06/2021 Telephone Cardiology Allison Marti MD Other (CT) 02/06/2021 Telephone Hepatology 02/06/2021 Travel Helen Waggoner RN Anticoagulation (2.0) 02/05/2021 Anticoagulation Cardiology Beckie Greene Labs Only (INR) 02/05/2021 Documentation Cardiology Carlos Longo MD Werner, Elizabeth, RN Torline, Kit, RT(R)(),LRT Giancarlo Meneses MD Chronic heart failure with preserved eje ction fraction (HCC) 02/02/2021 Hospital Radiology Encounter Josi Purvis BSN Abdomen Swelling 02/02/2021 Telephone Cardiology Josi Purvis BSN Anticoagulation (INR 1.1) 02/01/2021 Anticoagulation Cardiology Taisha Botello RN Labs Only 02/01/2021 Documentation Cardiology Josi Purvis BSN Anticoagulation (INR 1.3) 01/29/2021 Anticoagulation Cardiology Beckie Greene Labs Only (INR) 01/29/2021 Documentation Cardiology Josi Purvis BSN Anticoagulation (INR 1.2) 01/25/2021 Anticoagulation Cardiology Josi Purvis BSN Paroxysmal atrial fibrillation (HCC) 01/25/2021 Orders Only Cardiology Josi Purvis BSN Lab Results W/medication Changes 01/24/2021 Telephone Cardiology Scout Nelson MD Schreiber, Anna, RN Livingston, Tiffany, RT(R)(),LRT Chronic heart failure with preserved eje ction fraction (HCC) 01/23/2021 Hospital Radiology Encounter 01/23/2021 Travel Susan Palomino RN Abdomen Swelling 01/22/2021 Telephone Cardiology Sherin Mata BSN Follow-up Phone Call (Symptom follow-up) 01/22/2021 Telephone Cardiology Josi Purvis BSN Anticoagulation (INR 1.2) 01/18/2021 Anticoagulation Cardiology Kathryn Barbosa MA Labs Only 01/18/2021 Documentation Cardiology Sherin Mata BSN Medication Dose Change (Bumex from 3mg B ID to 4mg BID) 01/17/2021 Telephone Cardiology Allegra Cotter BSN Lab Results (BMP orders, follow up, symp shazia check) 01/17/2021 Telephone Cardiology Sherin Mata BSN 01/15/2021 Telephone Cardiology Josi Purvis BSN Anticoagulation 01/15/2021 Anticoagulation Cardiology Kathryn Barbosa MA Labs Only 01/15/2021 Documentation Cardiology Susan Palomino RN Anticoagulation (INR 1.2) 01/12/2021 Anticoagulation Cardiology Nithya Madison, TELEVISION REPAIRMAN-HEADLINER INSTALLER 01/11/2021 Hospital Lab Encounter Nithya Madison TELEVISION REPAIRMAN-HEADLINER INSTALLER Post-hospital Follow Up 01/11/2021 Office Visit Cardiology 01/11/2021 Travel Susan Palomino, CHRYSTAL Abdomen Swelling 01/10/2021 Telephone Cardiology Josi Purvis BSN Lab Results 01/08/2021 Telephone Cardiology Josi Purvis BSN Error 01/08/2021 Anticoagulation Cardiology Kailey Irizarry Anticoagulation (INR 1.2) 01/08/2021 Anticoagulation Cardiology Kathryn Barbosa MA Labs Only 01/08/2021 Documentation Cardiology Jc Beckie Labs Only (INR) 01/08/2021 Documentation Cardiology Mariely Chan LPN Post-hospital Follow Up (72 hour post ho spital follow up call) 01/05/2021 Telephone Cardiology Fernie Abreu MD General Question 2021 Telephone Urology Riley Caraballo MD 01/03/2021 Anesthesia Gastroenterology Event Bao Hernández MD ESOPHAGOGASTRODUODENOSCOPY WITH CONTROL OF BLEEDING - FLEXIBLE 01/03/2021 Surgery Gastroenterology Wilberto Escalante, Wilberto Gamboa MD Tripathi, Alok K, MD Acute on chronic diastolic (congestive) heart failure (HCC) 01/02/2021 Hospital - Encounter 2021 Basilia Gaitan TELEVISION REPAIRMAN-HEADLINER INSTALLER 01/02/2021 Hospital Lab Encounter Basilia Gaitan TELEVISION REPAIRMAN-HEADLINER INSTALLER Follow Up 01/02/2021 Office Visit Cardiology Jc, Beckie Labs Only (INR) 01/02/2021 Documentation Cardiology 01/02/2021 Travel Blanche Padilla, CHRYSTAL Other (Pt wanting Dr. Feliciano Atkinson's phone #) 01/01/2021 Telephone Cardiology Maggi Atkinson MD 12/30/2020 Hospital Radiology Encounter Fernie Abreu MD Gross hematuria (Primary Dx) 12/28/2020 Orders Only Urology Elvers, MD Lucero Nava Benjamin A, DO Becker, David W, MD Abebe, Abebe M, MD King, Theresa E, MD Acute on chronic diastolic (congestive) heart failure (HCC) 12/22/2020 Hospital - Encounter 12/30/2020 12/22/2020 Travel Blanche Padilla RN 12/22/2020 Telephone Cardiology Blanche [...] 12/20/2020 Hospital Radiology Encounter Basilia Gaitan APRN-NP 12/20/2020 Hospital Lab Encounter Gino Pandya APRN-NP Chronic heart failure with preserved eje ction [...] 1.5- 2.0) 12/20/2020 Anticoagulation Cardiology 12/20/2020 Susan Cha, CHRYSTAL Anticoagulation (INR 4.7) 12/18/2020 Anticoagulation Cardiology Susan Palomino, RN Erroneous encounter-disregard 12/18/2020 Anticoagulation Cardiology Susan Palomino, wedding florist Question About Anticoagulatio n Therapy 12/18/2020 Telephone Cardiology Arlene Rush RN Anticoagulation (INR 3.3 ) 12/14/2020 Anticoagulation Cardiology Beckie Greene Labs Only (INR) 12/14/2020 Documentation Cardiology Susan Palomino, CHRYSTAL Records Request 12/14/2020 Documentation Cardiology Roas Rojas, CHRYSTAL DME Order (Abdominal Binder) 12/13/2020 Telephone Cardiology [...] Purvis BSN Lab Request 12/11/2020 Telephone Cardiology from Last 3 Months Immunizations Name Administration Dates Next Due COVID-19 (PFIZER), mRNA 02/05/2021, 01/15/2021 vacc, 30 mcg/0.3 mL (PF) Flu Vaccine Quadrivalent 05/25/2019 Recombinant =>18 YO PF Pneumococcal Vaccine 03/05/2018 (23-Angelique Adult) Pneumococcal 11/21/2017 Vaccine(13-Angelique Peds/immunocompromised adult) Surgical History Surgery Date Site/Laterality Comments AORTIC VALVE REPLACEMENT 05/22/2009 - mechanical 06/21/2009 UPPER GASTROINTESTINAL 06/06/2020 N/A ESOPHAG OGASTRODUODENOSCOPY WITH BIOPSY - FLEXIBLE ENDOSCOPY performed by Leonidas Hernández MD at [facility] COLONOSCOPY 06/06/2020 N/A COLONOSCOPY LAWSON GNOSTIC WITH SPECIMEN COLLECTION BY BRUSHING/ WASHING - FLEXIBLE performed by Bao Hernández MD at [facility] UPPER GASTROINTESTINAL 10/21/2020 N/A ESOPHAG OGASTRODUODENOSCOPY WITH SPECIMEN ENDOSCOPY - 10/22/2020 COLLECTION BY BRUSH ING/ WASHING performed by Cosmo Gomez MD at [facility] SIGMOIDOSCOPY 10/21/2020 N/A SIGMOIDOSCOPY W ITH CONTROL OF BLEEDING - FLEXIBLE - 10/22/2020 performed by Cosmo Gomez MD at [facility] SIGMOIDOSCOPY 10/21/2020 SIGMOIDOSCOPY WITH DIRECTED SUBMUCOSAL INJECTION - - 10/22/2020 FLEXIBLE performed by Cosmo Pastor MD at [facility] UPPER GASTROINTESTINAL 01/03/2021 N/A ESOPHAG OGASTRODUODENOSCOPY WITH CONTROL OF ENDOSCOPY BLEEDING - FLEXIBLE perform ed by Bao Hernández MD at [facility] Medical History Medical History Date Comments [...] at Date Recorded Female 06/01/2020 1:44 PM NURSE MIDWIFE Date Recorded COVID-19 Exposure Response 03/08/2021 7:56 AM NURSE MIDWIFE In the last month, have you been in contact with No / Unsure someone who was confirmed or suspected to have Coronavirus / COVID-19? Last Filed Vital Signs Reading Time Taken Comments Vital Sign 103/57 03/08/2021 8:58 AM NURSE MIDWIFE Blood Pressure 124 02/19/2021 10:30 AM NURSE MIDWIFE Pulse 36.9 C (98.4 F) 03/08/2021 8:00 AM NURSE MIDWIFE Temperature 18 12/07/2020 3:19 PM CDT Respiratory Rate 96% 03/08/2021 8:58 AM NURSE MIDWIFE Oxygen Saturation - - Inhaled Oxygen Concentration 55.8 kg (123 lb) 03/05/2021 8:14 AM NURSE MIDWIFE Weight 157.5 cm (5' 2") 03/05/2021 8:14 AM NURSE MIDWIFE Height 22.5 03/05/2021 8:14 AM NURSE MIDWIFE Body Mass Index Plan of Treatment Care Team Description Date Type Specialty Carlos Longo MD [address] [address] [place] [address] [facility] [address] [place] [phone] 03/22/2021 Hospital Radiology [place] [id number] [place] [phone] Nonrheumatic tricuspid valve regurgitati on 03/27/2021 Hospital Cardiology Encounter Jacob Almaraz [id number] [place] [phone] CATHETERIZATION RIGHT HEART 03/27/2021 Surgery Cardiology Date/Time Name Priority Associated Diagnose s 03/27/2021 9:05 AM NURSE MIDWIFE CATHETERIZATION RIGHT HEART Nonrheumatic tricuspid valve regurgitation Health Maintenance Due Date Last Done Comments MEDICARE ANNUAL WELLNESS 1960 VISIT DTAP/TDAP VACCINES (1 - 01/05/1980 Tdap) PHYSICAL (COMPREHENSIVE) 01/05/1980 EXAM CERVICAL CANCER SCREENING 1983 BREAST CANCER SCREENING 2002 SHINGLES RECOMBINANT 01/05/2012 VACCINE (1 of 2) INFLUENZA VACCINE 10/22/2020 05/25/2019 COVID-19 VACCINE (3 - 08/05/2021 02/05/2021, Booster for Pfizer 01/15/2021 series) COLORECTAL CANCER 06/06/2030 06/06/2020, SCREENING 06/06/2020 HEPATITIS C SCREENING Completed 06/01/2020 HIV SCREENING Completed 06/02/2020 Goals Goal Patient Associated Recent Progress Patient-Stat Aut hor Goal Type Problems ed? Improve [facility] On track (10/23/2020 Yes Sheldon, 1:06 PM CDT) CHRYSTAL Singh [facility] On track (12/25/2020 Yes Sheldon, 2:41 PM CDT) CHRYSTAL Singh Note: "To get better and stronger." Implants Device Identifier Shelf Expiration Date Model / Serial / L ot Implanted Type Area Manufactur er [id number] 07/21/2021 [id number] / N/A / [id number] Device Closure 70cm 6fr Angio-Seal TERUMO Vip .035in Vascular - Sn/A MEDICAL Implanted: Qty: 1 on 11/06/2020 at [facility] [id number] 06/08/2025 [id number] / . / [id number] Coil Embolization 14cm 3mm .018in COOK Nomi 14.9 Loop Soft - S. MEDICAL Implanted: Qty: 1 on 11/06/2020 at [facility] [id number] 06/08/2025 [id number] / . / [id number] Coil Embolization 14cm 3mm .018in COOK Nomi 14.9 Loop Soft - S. MEDICAL Implanted: Qty: 1 on 11/06/2020 at [facility] [id number] 06/08/2025 [id number] / . / [id number] Coil Embolization 14cm 3mm .018in COOK Nomi 14.9 Loop Soft - S. MEDICAL Implanted: Qty: 1 on 11/06/2020 at [facility] [id number] 06/08/2025 [id number] / . / [id number] Coil Embolization 14cm 3mm .018in COOK Nomi 14.9 Loop Soft - S. MEDICAL Implanted: Qty: 1 on 11/06/2020 at [facility] [id number] 09/02/2028 [id number] / . / [id number] Coil Embolization 10cm .02in 4mm PENUMBRA Penumbra Coil 400 Vivian - S. INC Implanted: Qty: 1 on 11/06/2020 at [facility] [id number] 06/08/2025 [id number] / . / [id number] Coil Embolization 14cm 3mm .018in COOK Nomi 14.9 Loop Soft - S. MEDICAL Implanted: Qty: 1 on 11/06/2020 at [facility] [id number] 06/08/2025 [id number] / . / [id number] Coil Embolization 14cm 3mm .018in COOK Nomi 14.9 Loop Soft - S. MEDICAL Implanted: Qty: 1 on 11/06/2020 at [facility] [id number] 06/08/2025 [id number] / . / [id number] Coil Embolization 14cm 3mm .018in COOK Nomi 14.9 Loop Soft - S. MEDICAL Implanted: Qty: 1 on 11/06/2020 at [facility] [id number] 06/08/2025 [id number] / . / [id number] Coil Embolization 14cm 3mm .018in COOK Nomi 14.9 Loop Soft - S. MEDICAL Implanted: Qty: 1 on 11/06/2020 at [facility] [id number] 07/03/2028 [id number] / . / [id number] Coil Vivian Pod J 30cm - S. PENUMBRA Implanted: Qty: 1 on 11/06/2020 at [facility] [id number] 02/24/2027 [id number] / . / [id number] Coil Vivian Pod J 45cm - S. PENUMBRA Implanted: Qty: 1 on 11/06/2020 at [facility] [id number] 06/08/2025 [id number] / . / [id number] Coil Embolization 14cm 3mm .018in COOK Nomi 14.9 Loop Soft - S. MEDICAL Implanted: Qty: 1 on 11/06/2020 at [facility] Procedures Comments Procedure Name Priority Date/Time Associated Diag nosis IR PARACENTESIS Routine 03/08/2021 Chronic heart failure THERAPEUTIC 8:32 AM NURSE MIDWIFE with preserved ejec tion fraction (HCC) RVF (right ventricular failure) (HCC) Other cirrhosis of liver (HCC) PROTIME INR (PT) Routine 03/07/2021 Chronic heart failure with preserved ejection fraction (HCC) IR PARACENTESIS Routine 03/05/2021 Chronic heart failure THERAPEUTIC 9:32 AM NURSE MIDWIFE with preserved ejec tion fraction (HCC) RVF (right ventricular failure) (HCC) Other cirrhosis of liver (HCC) HC PT(INR) Routine 03/05/2021 Chronic heart f ailure 8:28 AM NURSE MIDWIFE with preserved ejection fraction (HCC) IR PARACENTESIS Routine 03/02/2021 Chronic heart failure THERAPEUTIC 4:19 PM NURSE MIDWIFE with preserved ejec tion fraction (HCC) RVF (right ventricular failure) (HCC) Other cirrhosis of liver (HCC) HC CBC W/ AUTOMATED DIFF Routine 03/02/2021 Chron ic heart failure 3:24 PM NURSE MIDWIFE with preserved ejection fraction (HCC) Other cirrhosis of liver (HCC) HC COMPREHENSIVE Routine 03/02/2021 Chronic heart failure METABOLIC PANEL 3:24 PM NURSE MIDWIFE with preserved ejec tion fraction (HCC) Other cirrhosis of liver (HCC) HOME INR Routine 02/27/2021 IR PARACENTESIS Routine 02/19/2021 Chronic heart failure THERAPEUTIC 9:50 AM NURSE MIDWIFE with preserved ejec tion fraction (HCC) RVF (right ventricular failure) (HCC) Other cirrhosis of liver (HCC) HC PT(INR) Routine 02/19/2021 Paroxysmal atri al 8:19 AM NURSE MIDWIFE fibrillation (HCC) IR PARACENTESIS Routine 02/12/2021 Chronic heart failure THERAPEUTIC 4:21 PM NURSE MIDWIFE with preserved ejec tion fraction (HCC) RVF (right ventricular failure) (HCC) Other cirrhosis of liver (HCC) PROTIME INR (PT) Routine 02/12/2021 Paroxysmal at rial fibrillation (HCC) HOME INR Routine 02/09/2021 5:32 PM NURSE MIDWIFE HOME INR Routine 02/09/2021 PROTIME INR (PT) Routine 02/05/2021 Chronic heart failure with preserved ejection fraction (HCC) IR PARACENTESIS Routine 02/02/2021 Chronic heart failure THERAPEUTIC 4:19 PM NURSE MIDWIFE with preserved ejec tion fraction (HCC) RVF (right ventricular failure) (HCC) Other cirrhosis of liver (HCC) PROTIME INR (PT) Routine 02/01/2021 Chronic heart failure with preserved ejection fraction (HCC) PROTIME INR (PT) Routine 01/29/2021 Chronic heart failure with preserved ejection fraction (HCC) PROTIME INR (PT) Routine 01/25/2021 Paroxysmal at rial fibrillation (HCC) IR PARACENTESIS Routine 01/23/2021 Chronic heart failure THERAPEUTIC 3:18 PM CDT with preserved ejec tion fraction (HCC) RVF (right ventricular failure) (HCC) Other cirrhosis of liver (HCC) HC BASIC METABOLIC PANEL Routine 01/23/2021 Stage 3b chronic kidney 2:23 PM CDT disease (HCC) PROTIME INR (PT) Routine 01/18/2021 Paroxysmal at rial fibrillation (HCC) PROTIME INR (PT) Routine 01/15/2021 Paroxysmal at rial fibrillation (HCC) HOME INR Routine 01/12/2021 HC PT(INR) Routine 01/11/2021 Paroxysmal atri al 4:11 PM CDT fibrillation (HCC) HC BASIC METABOLIC PANEL Routine 01/11/2021 RVF ( right ventricular 4:11 PM CDT failure) (HCC) Acute on chronic heart failure with preserved ejection fraction (HCC) Stage 3b chronic kidney disease (HCC) HC CBC,AUTOMATED Routine 01/11/2021 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 4:11 PM CDT diastolic (congestive) heart failure (HCC) Cirrhosis of liver without ascites, unspecified hepatic cirrhosis type (HCC) Non-ischemic cardiomyopathy (HCC) Severe malnutrition (HCC) Iron deficiency anemia due to chronic blood loss Gastrointestinal hemorrhage, unspecified gastrointestinal hemorrhage type Acute on chronic heart failure with preserved ejection fraction (HCC) Aortic valve prosthesis present Acute kidney injury superimposed on CKD (HCC) RVF (right ventricular failure) (HCC) Acute on chronic right-sided heart failure (HCC) Chronic heart failure with preserved ejection fraction (HCC) Hx of mechanical aortic valve replacement Hypotension, unspecified hypotension type Cardiogenic shock (HCC) BASIC METABOLIC PANEL Routine 01/08/2021 Acute on chronic diastolic (congestive) heart failure (HCC) Cirrhosis of liver without ascites, unspecified hepatic cirrhosis type (HCC) Non-ischemic cardiomyopathy (HCC) Severe malnutrition (HCC) Iron deficiency anemia due to chronic blood loss Gastrointestinal hemorrhage, unspecified gastrointestinal hemorrhage type Acute on chronic heart failure with preserved ejection fraction (HCC) Aortic valve prosthesis present Acute kidney injury superimposed on CKD (HCC) RVF (right ventricular failure) (HCC) Acute on chronic right-sided heart failure (HCC) Chronic heart failure with preserved ejection fraction (HCC) Hx of mechanical aortic valve replacement Hypotension, unspecified hypotension type Cardiogenic shock (HCC) PROTIME INR (PT) Routine 01/05/2021 Chronic heart failure with preserved ejection fraction (HCC) HC CBC,AUTOMATED Routine 2021 5:09 AM CDT HC MAGNESIUM Routine 2021 5:09 AM CDT HC COMPREHENSIVE Routine 2021 METABOLIC PANEL 5:09 AM CDT HC PT(INR) Routine 2021 5:09 AM CDT BASIC METABOLIC PANEL Routine 01/03/2021 3:32 PM CDT CBC Routine 01/03/2021 3:32 PM CDT ECG 12-LEAD Routine 01/03/2021 10:42 AM CDT ESOPHAGOGASTRODUODENOSCOP 01/03/2021 Iron defici ency anemia Y WITH CONTROL OF 9:55 AM CDT due to chronic bloo d loss BLEEDING - FLEXIBLE EGD REPORT 01/03/2021 9:40 AM CDT HC MAGNESIUM Routine 01/03/2021 4:19 AM CDT HC COMPREHENSIVE Routine 01/03/2021 METABOLIC PANEL 4:19 AM CDT HC PT(INR) Routine 01/03/2021 4:19 AM CDT HC CBC,AUTOMATED Routine 01/03/2021 4:19 AM CDT HC BASIC METABOLIC PANEL Routine 01/03/2021 2:09 AM CDT T SPINE 3 VIEWS STAT 01/03/2021 12:51 AM CDT SACRUM & COCCYX MIN 2 STAT 01/03/2021 VIEWS 12:50 AM CDT L SPINE AP & LATERAL STAT 01/03/2021 12:48 AM CDT POC GLUCOSE 01/02/2021 11:10 PM CDT URINALYSIS, MICROSCOPIC Routine 01/02/2021 7:30 PM CDT HC URINALYSIS, AUTO W Routine 01/02/2021 MICRO 7:30 PM CDT IR PARACENTESIS Routine 01/02/2021 DIAGNOSTIC 4:13 PM CDT IR ABDOMINAL DRAIN Routine 01/02/2021 REMOVAL 4:13 PM CDT HC TOTAL PROTEIN-FLUID Routine 01/02/2021 4:00 PM CDT HC GLUCOSE-FLUID Routine 01/02/2021 4:00 PM CDT HC ALBUMIN, FLUID Routine 01/02/2021 4:00 PM CDT HC CELL COUNT Routine 01/02/2021 W/DIFF-FLUIDS 4:00 PM CDT GRAM STAIN 01/02/2021 4:00 PM CDT CULTURE-ANAEROBIC Routine 01/02/2021 4:00 PM CDT CULTURE-WOUND/TISSUE/FLUI Routine 01/02/2021 D(AEROBIC 4:00 PM CDT ONLY)W/SENSITIVITY HC BASIC METABOLIC PANEL Routine 01/02/2021 3:15 PM CDT TYPE & CROSSMATCH Routine 01/02/2021 2:20 PM CDT HC IRON BINDING CAPACITY Add on 01/02/2021 + %SAT 2:20 PM CDT HC COMPREHENSIVE Routine 01/02/2021 METABOLIC PANEL 2:20 PM CDT HC PT(INR) Routine 01/02/2021 2:20 PM CDT CBC Routine 01/02/2021 2:20 PM CDT COVID-19 (SARS-COV-2) PCR Routine 01/02/2021 2:00 PM CDT ECG 12-LEAD Routine 01/02/2021 1:21 PM CDT HC CHEM 8 PANEL, POC 01/02/2021 9:41 AM CDT HC PT(INR) Routine 01/02/2021 Chronic heart f ailure 8:58 AM CDT with preserved ejection fraction (HCC) HC DIGOXIN Routine 01/02/2021 Chronic heart f ailure 8:58 AM CDT with preserved ejection fraction (HCC) Acute on chronic diastolic (congestive) heart failure (HCC) Atrial tachycardia (HCC) HC CBC,AUTOMATED Routine 01/02/2021 Leukocytosis, unspecified 8:58 AM CDT type TELEMETRY STRIPS-SCAN 01/02/2021 12:00 AM CDT ECG-SCAN 01/02/2021 12:00 AM CDT ECG-SCAN 01/02/2021 12:00 AM CDT ECG-SCAN 01/02/2021 12:00 AM CDT TELEMETRY STRIPS-SCAN 01/02/2021 12:00 AM CDT TELEMETRY STRIPS-SCAN 01/02/2021 12:00 AM CDT TELEMETRY STRIPS-SCAN 01/02/2021 12:00 AM CDT PROTIME INR (PT) Routine 01/01/2021 Paroxysmal at rial fibrillation (HCC) CT ABD/PELV W CONTRAST Routine 12/30/2020 12:15 PM CDT HC COMPREHENSIVE Routine 12/30/2020 METABOLIC PANEL 5:06 AM CDT HC CBC W/ AUTOMATED DIFF Routine 12/30/2020 5:06 AM CDT HC PT(INR) Routine 12/30/2020 5:06 AM CDT HC PTT(APTT) Routine 12/30/2020 5:06 AM CDT HC PHOSPHOROUS, SERUM Routine 12/30/2020 (PO4CT) 5:06 AM CDT HC MAGNESIUM (MGCT) Routine 12/30/2020 5:06 AM CDT HC PT(INR) Routine 12/29/2020 9:33 AM CDT HC PTT(APTT) Routine 12/29/2020 9:33 AM CDT HC PHOSPHOROUS, SERUM Routine 12/29/2020 (PO4CT) 9:33 AM CDT HC MAGNESIUM (MGCT) Routine 12/29/2020 9:33 AM CDT HC PT(INR) Routine 12/28/2020 6:49 AM CDT HC COMPREHENSIVE Routine 12/28/2020 METABOLIC PANEL 6:49 AM CDT HC CBC W/ AUTOMATED DIFF Routine 12/28/2020 6:49 AM CDT HC PTT(APTT) Routine 12/28/2020 6:49 AM CDT HC PHOSPHOROUS, SERUM Routine 12/28/2020 (PO4CT) 6:49 AM CDT HC MAGNESIUM (MGCT) Routine 12/28/2020 6:49 AM CDT HC PT(INR) Routine 12/27/2020 11:35 AM CDT HC COMPREHENSIVE Routine 12/27/2020 METABOLIC PANEL 9:44 AM CDT HC CBC W/ AUTOMATED DIFF Routine 12/27/2020 9:44 AM CDT HC PTT(APTT) Routine 12/27/2020 9:44 AM CDT HC PHOSPHOROUS, SERUM Routine 12/27/2020 (PO4CT) 9:44 AM CDT HC MAGNESIUM (MGCT) Routine 12/27/2020 9:44 AM CDT HC COMPREHENSIVE Routine 12/26/2020 METABOLIC PANEL 5:42 AM CDT HC CBC W/ AUTOMATED DIFF Routine 12/26/2020 5:42 AM CDT HC PT(INR) Routine 12/26/2020 5:42 AM CDT HC PTT(APTT) Routine 12/26/2020 5:42 AM CDT HC PHOSPHOROUS, SERUM Routine 12/26/2020 (PO4CT) 5:42 AM CDT HC MAGNESIUM (MGCT) Routine 12/26/2020 5:42 AM CDT US ABDOMEN LIMITED Routine 12/25/2020 4:40 PM CDT HC PT(INR) Routine 12/25/2020 6:34 AM CDT HC COMPREHENSIVE Routine 12/25/2020 METABOLIC PANEL 6:34 AM CDT HC PTT(APTT) Routine 12/25/2020 6:34 AM CDT HC PHOSPHOROUS, SERUM Routine 12/25/2020 (PO4CT) 6:34 AM CDT HC MAGNESIUM (MGCT) Routine 12/25/2020 6:34 AM CDT HC CBC W/ AUTOMATED DIFF Routine 12/25/2020 6:34 AM CDT HC VANCOMYCIN-TROUGH Routine 12/24/2020 9:15 PM CDT HC PT(INR) Routine 12/24/2020 5:49 AM CDT HC COMPREHENSIVE Routine 12/24/2020 METABOLIC PANEL 5:49 AM CDT HC PTT(APTT) Routine 12/24/2020 5:49 AM CDT HC PHOSPHOROUS, SERUM Routine 12/24/2020 (PO4CT) 5:49 AM CDT HC MAGNESIUM (MGCT) Routine 12/24/2020 5:49 AM CDT HC CBC W/ AUTOMATED DIFF Routine 12/24/2020 5:49 AM CDT HC TROPONIN-I Routine 12/23/2020 11:32 PM CDT HC COMPREHENSIVE Routine 12/23/2020 METABOLIC PANEL 4:55 PM CDT TROPONIN-I Routine 12/23/2020 4:55 PM CDT IR PARACENTESIS Routine 12/23/2020 DIAGNOSTIC + THERAPEUTIC 10:59 AM CDT IR ASPIRATION/DRAIN Routine 12/23/2020 10:59 AM CDT CYTOLOGY SPECIMEN LABEL 12/23/2020 10:28 AM CDT CYTOLOGY SPECIMEN LABEL Routine 12/23/2020 10:28 AM CDT HC TOTAL PROTEIN-FLUID 12/23/2020 10:28 AM CDT HC ALBUMIN, FLUID 12/23/2020 10:28 AM CDT HC CELL COUNT 12/23/2020 W/DIFF-FLUIDS 10:28 AM CDT HC TOTAL PROTEIN-FLUID Routine 12/23/2020 10:28 AM CDT HC ALBUMIN, FLUID Routine 12/23/2020 10:28 AM CDT HC CELL COUNT Routine 12/23/2020 W/DIFF-FLUIDS 10:28 AM CDT CULTURE-WOUND/TISSUE/FLUI 12/23/2020 D(AEROBIC 10:28 AM CDT ONLY)W/SENSITIVITY GRAM STAIN 12/23/2020 10:28 AM CDT CULTURE-ANAEROBIC 12/23/2020 10:28 AM CDT CULTURE-WOUND/TISSUE/FLUI Routine 12/23/2020 D(AEROBIC 10:28 AM CDT ONLY)W/SENSITIVITY GRAM STAIN Routine 12/23/2020 10:28 AM CDT CULTURE-ANAEROBIC Routine 12/23/2020 10:28 AM CDT HC TROPONIN-I Routine 12/23/2020 9:49 AM CDT HC NON-PRESSER AND SHAPER KNITTED GOODS/THIN PREP 12/23/2020 9:43 AM CDT HC COMPREHENSIVE Routine 12/23/2020 METABOLIC PANEL 5:57 AM CDT HC DIGOXIN Routine 12/23/2020 5:57 AM CDT TROPONIN-I Routine 12/23/2020 5:57 AM CDT HC B-TYPE NATRIURETIC Routine 12/23/2020 PEPTIDE 5:57 AM CDT HC PTT(APTT) Routine 12/23/2020 5:57 AM CDT HC PT(INR) Routine 12/23/2020 5:57 AM CDT HC PHOSPHOROUS, SERUM Routine 12/23/2020 (PO4CT) 5:57 AM CDT HC MAGNESIUM (MGCT) Routine 12/23/2020 5:57 AM CDT HC CBC W/ AUTOMATED DIFF Routine 12/23/2020 5:57 AM CDT HC VANCOMYCIN-TIMED Routine 12/23/2020 5:56 AM CDT UA REFLEX LABEL Routine 12/23/2020 3:17 AM CDT URINALYSIS MICROSCOPIC Routine 12/23/2020 REFLEX TO CULTURE 3:17 AM CDT HC URINALYSIS UAR Routine 12/23/2020 3:17 AM CDT HC OSMOLALITY-URINE Routine 12/23/2020 3:17 AM CDT HC CREATININE-URINE Routine 12/23/2020 3:17 AM CDT HC SODIUM-URINE Routine 12/23/2020 3:17 AM CDT HC UREA NITROGEN-URINE Routine 12/23/2020 3:17 AM CDT HC TROPONIN-I STAT 12/23/2020 1:10 AM CDT HC LACTIC ACID - BG Routine 12/23/2020 SYRINGE 1:10 AM CDT CRITICAL CARE Routine 12/22/2020 9:29 PM CDT CHEST SINGLE VIEW STAT 12/22/2020 8:51 PM CDT HC POC LACTIC ACID 12/22/2020 8:32 PM CDT ECG 12-LEAD STAT 12/22/2020 8:[address] ABD/PELV W CONTRAST STAT 12/22/2020 8:05 PM CDT CULTURE-BLOOD STAT 12/22/2020 W/SENSITIVITY 7:25 PM CDT CULTURE-BLOOD STAT 12/22/2020 W/SENSITIVITY 7:25 PM CDT HC BNP POC 12/22/2020 6:58 PM CDT POC CREATININE, RAD 12/22/2020 6:55 PM CDT HC TROPONIN I, POC 12/22/2020 6:53 PM CDT HC OSMOLALITY;BLOOD Add on 12/22/2020 6:48 PM CDT HC CORTISOL, RANDOM Add on 12/22/2020 6:48 PM CDT HC PROLCALCITONIN (PROCA) Add on 12/22/2020 6:48 PM CDT HC DIGOXIN 12/22/2020 6:48 PM CDT HC LIPASE STAT 12/22/2020 6:48 PM CDT HC PT(INR) STAT 12/22/2020 6:48 PM CDT HC MAGNESIUM STAT 12/22/2020 6:48 PM CDT HC AMMONIA STAT 12/22/2020 6:48 PM CDT HC COMPREHENSIVE STAT 12/22/2020 METABOLIC PANEL 6:48 PM CDT HC CBC W/ AUTOMATED DIFF STAT 12/22/2020 6:48 PM CDT COVID-19 (SARS-COV-2) PCR Routine 12/22/2020 6:48 PM CDT ECG 12-LEAD STAT 12/22/2020 6:12 PM CDT PROTIME INR (PT) Routine 12/22/2020 Chronic heart [...] heart failure with preserved ejection fraction (HCC) TELEMETRY STRIPS-SCAN 12/22/2020 12:00 AM CDT TELEMETRY STRIPS-SCAN 12/22/2020 12:00 AM CDT TELEMETRY STRIPS-SCAN 12/22/2020 12:00 AM CDT TELEMETRY STRIPS-SCAN 12/22/2020 12:00 AM CDT TELEMETRY STRIPS-SCAN 12/22/2020 12:00 AM CDT TELEMETRY STRIPS-SCAN 12/22/2020 12:00 AM CDT TELEMETRY STRIPS-SCAN 12/22/2020 12:00 AM CDT TELEMETRY STRIPS-SCAN 12/22/2020 12:00 AM CDT TELEMETRY STRIPS-SCAN 12/22/2020 12:00 AM CDT TELEMETRY STRIPS-SCAN 12/22/2020 12:00 AM CDT TELEMETRY STRIPS-SCAN 12/22/2020 12:00 AM CDT TELEMETRY STRIPS-SCAN 12/22/2020 12:00 AM CDT TELEMETRY STRIPS-SCAN 12/22/2020 12:00 AM CDT TELEMETRY STRIPS-SCAN 12/22/2020 12:00 AM CDT TELEMETRY STRIPS-SCAN 12/22/2020 12:00 AM CDT TELEMETRY STRIPS-SCAN 12/22/2020 12:00 AM CDT TELEMETRY STRIPS-SCAN 12/22/2020 12:00 AM CDT TELEMETRY STRIPS-SCAN 12/22/2020 12:00 AM CDT TELEMETRY STRIPS-SCAN 12/22/2020 12:00 AM CDT TELEMETRY STRIPS-SCAN 12/22/2020 12:00 AM CDT TELEMETRY STRIPS-SCAN 12/22/2020 12:00 AM CDT TELEMETRY STRIPS-SCAN 12/22/2020 12:00 AM CDT TELEMETRY STRIPS-SCAN 12/22/2020 12:00 AM CDT TELEMETRY STRIPS-SCAN 12/22/2020 12:00 AM CDT TELEMETRY STRIPS-SCAN 12/22/2020 12:00 AM CDT TELEMETRY STRIPS-SCAN 12/22/2020 12:00 AM CDT TELEMETRY STRIPS-SCAN 12/22/2020 12:00 AM CDT TELEMETRY STRIPS-SCAN 12/22/2020 12:00 AM CDT TELEMETRY STRIPS-SCAN 12/22/2020 12:00 AM CDT TELEMETRY STRIPS-SCAN 12/22/2020 12:00 AM CDT ECG-SCAN 12/22/2020 12:00 AM CDT ECG-SCAN 12/22/2020 12:00 AM CDT TELEMETRY STRIPS-SCAN 12/22/2020 12:00 AM CDT TELEMETRY STRIPS-SCAN 12/22/2020 12:00 AM CDT TELEMETRY STRIPS-SCAN 12/22/2020 12:00 AM CDT TELEMETRY STRIPS-SCAN 12/22/2020 12:00 AM CDT TELEMETRY STRIPS-SCAN 12/22/2020 12:00 AM CDT TELEMETRY STRIPS-SCAN 12/22/2020 12:00 AM CDT TELEMETRY STRIPS-SCAN 12/22/2020 12:00 AM CDT HC DIGOXIN Routine 12/20/2020 Acute on chroni [...] endocarditis High output congestive heart failure (HCC) from Last 3 Months Results * IR PARACENTESIS THERAPEUTIC (03/08/2021 8:32 AM NURSE MIDWIFE) Only the most recent of 7 results within the time period is included. Modality Anatomical Region Laterality Ultrasound Specimen Impressions [facility]ULTS - 03/08/2021 11:35 AM NURSE MIDWIFE IMPRESSION: Ultrasound guided paracentesis with removal of 1.9 liters of fluid. IKarsten M.D., the attending radiologist, was present for the procedure, personally reviewed the images, and formulated the interpretations and opinions expressed in this report. @TT Finalized by Karsten Griffiths M.D. on 03/08/2021 11:35 AM. Dictated by Karsten Griffiths M.D. on 03/08/2021 11:35 AM. Narrative [facility] RESULTS - 03/08/2021 11:35 AM NURSE MIDWIFE Exam: Ultrasound-guided paracentesis. History: Ascites. Technique: After obtaining informed written consent the patient was placed supine on the procedure table. Using ultrasound guidance, an appropriate insertion site in the right lower quadrant was marked. The patient was prepped and draped in the usual sterile fashion. Lidocaine was used for local anesthesia. A Xvw-V-[id number] needle was inserted into the abdomen, with return of clear yellow fluid. Fluid was removed, the total amount as listed below. The needle was removed. Hemostasis was achieved using manual compression. The patient tolerated procedure well, and left the department in good condition. Procedure Note Karsten Griffiths MD - 03/08/2021 Exam: Ultrasound-guided paracentesis. History: Ascites. Technique: After obtaining informed written consent the patient was placed supine on the procedure table. Using ultrasound guidance, an appropriate insertion site in the right lower quadrant was marked. The patient was prepped and draped in the usual sterile fashion. Lidocaine was used for local anesthesia. A Wsh-A-[id number] needle was inserted into the abdomen, with return of clear yellow fluid. Fluid was removed, the total amount as listed below. The needle was removed. Hemostasis was achieved using manual compression. The patient tolerated procedure well, and left the department in good condition. IMPRESSION IMPRESSION: Ultrasound guided paracentesis with removal of 1.9 liters of fluid. I, Karsten Griffiths M.D., the attending radiologist, was present for the procedure, personally reviewed the images, and formulated the interpretations and opinions expressed in this report. @TT Finalized by Karsten Griffiths M.D. on 03/08/2021 11:35 AM. Dictated by Karsten Griffiths M.D. on 03/08/2021 11:35 AM. Performing Organization Address City/State/ZIP Code P shane Number [facility] RESULTS * PROTIME INR (PT) (03/07/2021) Only the most recent of 29 results within the time period is included. INR 2.2 [facility] Specimen Blood - Blood Narrative Performing Organization Address City/State/ZIP Code P shane Number [facility] [address] [place] [address] * (ABNORMAL) CBC AND DIFF (03/02/2021 3:24 PM NURSE MIDWIFE) Only the most recent of 9 results within the time period is included. White Blood 4.6 4.5 - 11.0 K/UL [facility] Cells RBC 3.53 (L) 4.0 - 5.0 M/UL [facility] Hemoglobin 10.9 (L) 12.0 - 15.0 GM/DL [facility] Hematocrit 32.8 (L) 36 - 45 % [facility] MCV 93.0 80 - 100 FL [facility] MCH 31.0 26 - 34 PG [facility] MCHC 33.4 32.0 - 36.0 G/DL [facility] RDW 18.1 (H) 11 - 15 % [facility] Platelet Count 300 150 - 400 K/UL [facility] MPV 6.8 (L) 7 - 11 FL [facility] Neutrophils 80 (H) 41 - 77 % [facility] Lymphocytes 9 (L) 24 - 44 % [facility] Monocytes 9 4 - 12 % [facility] Eosinophils 1 0 - 5 % [facility] Basophils 1 0 - 2 % [facility] Absolute 3.69 1.8 - 7.0 K/UL [facility] Neutrophil Count Absolute Lymph 0.42 (L) 1.0 - 4.8 K/UL [facility] Count Absolute 0.39 0 - 0.80 K/UL [facility] Monocyte Count Absolute 0.06 0 - 0.45 K/UL [facility] Eosinophil Count Absolute 0.02 0 - 0.20 K/UL [facility] Basophil Count Specimen Blood (substance) Performing Organization Address City/State/ZIP Code P shane Number [facility] [address] [place] [address] * (ABNORMAL) COMPREHENSIVE METABOLIC PANEL (03/02/2021 3:24 PM NURSE MIDWIFE) Only the most recent of 14 results within the time period is included. Sodium 130 (L) 137 - 147 MMOL/L [facility] Potassium 3.5 3.5 - 5.1 MMOL/L [facility] Chloride 94 (L) 98 - 110 MMOL/L [facility] Glucose 111 (H) 70 - 100 MG/DL [facility] Blood Urea 18 7 - 25 MG/DL [facility] Nitrogen Creatinine 1.19 (H) 0.4 - 1.00 MG/DL [facility] Calcium 8.3 (L) 8.5 - 10.6 MG/DL [facility] Total Protein 5.9 (L) 6.0 - 8.0 G/DL [facility] Total Bilirubin 0.8 0.3 - 1.2 MG/DL [facility] Albumin 3.2 (L) 3.5 - 5.0 G/DL [facility] Alk Phosphatase 91 25 - 110 U/L [facility] AST (SGOT) 31 7 - 40 U/L [facility] CO2 26 21 - 30 MMOL/L [facility] ALT (SGPT) 14 7 - 56 U/L [facility] Anion Gap 10 3 - 12 [facility] eGFR Non 46 (L) >60 mL/min [facility] Comment: [place] The eGFR is not validated f or use in drug dosing adjustments. Continue to use estimated creatinine clearance per dosing reference text. Please contact the Clinical Pharmacist for questions. eGFR 56 (L) >60 mL/min [facility] [place] Comment: The eGFR is not validated for use in drug dosing adjustments. Continue to use estimated creatinine clearance per dosing reference text. Please contact the Clinical Pharmacist for questions. Specimen Blood (substance) Performing Organization Address City/State/ZIP Code P sahne Number [facility] [address] [place] [address] * HOME INR (02/27/2021) Only the most recent of 5 results within the time period is included. INR Home 1.3 [facility] Specimen Narrative OTHER OUTSIDE LAB - 02/27/2021 Called in by [facility] Performing Organization Address City/State/ZIP Code P shane Number OTHER OUTS[facility] * (ABNORMAL) BASIC METABOLIC PANEL (01/23/2021 2:23 PM CDT) Only the most recent of 7 results within the time period is included. Sodium 131 (L) 137 - 147 MMOL/L [facility] Potassium 4.0 3.5 - 5.1 MMOL/L [facility] Chloride 98 98 - 110 MMOL/L [facility] CO2 24 21 - 30 MMOL/L [facility] Anion Gap 9 3 - 12 [facility] Glucose 107 (H) 70 - 100 MG/DL [facility] Blood Urea 22 7 - 25 MG/DL [facility] Nitrogen Creatinine 1.14 (H) 0.4 - 1.00 MG/DL [facility] Calcium 8.5 8.5 - 10.6 MG/DL [facility] eGFR Non 49 (L) >60 mL/min [facility] Comment: [place] The eGFR is not validated f or use in drug dosing adjustments. Continue to use estimated creatinine clearance per dosing reference text. Please contact the Clinical Pharmacist for questions. eGFR 59 (L) >60 mL/min [facility] [place] Comment: The eGFR is not validated for use in drug dosing adjustments. Continue to use estimated creatinine clearance per dosing reference text. Please contact the Clinical Pharmacist for questions. Specimen Blood Performing Organization Address City/State/ZIP Code P shane Number [facility] [address] [place] [address] * (ABNORMAL) CBC (01/11/2021 4:11 PM CDT) Only the most recent of 8 results within the time period is included. White Blood 7.1 4.5 - 11.0 K/UL [facility] Cells RBC 3.00 (L) 4.0 - 5.0 M/UL [facility] Hemoglobin 9.3 (L) 12.0 - 15.0 GM/DL [facility] Hematocrit 28.2 (L) 36 - 45 % [facility] MCV 93.9 80 - 100 FL [facility] MCH 31.1 26 - 34 PG [facility] MCHC 33.1 32.0 - 36.0 G/DL [facility] RDW 24.9 (H) 11 - 15 % [facility] Platelet Count 289 150 - 400 K/UL [facility] MPV 7.1 7 - 11 FL [facility] Specimen Blood Performing Organization Address City/State/ZIP Code P shane Number [facility] [address] [place] [address] * MAGNESIUM (2021 5:09 AM CDT) Only the most recent of 3 results within the time period is included. Magnesium 2.1 1.6 - 2.6 mg/dL [facility] Specimen Blood Performing Organization Address City/[facility]/ZIP Code P shane Number [facility] [address] [place] [phone] * EGD REPORT (01/03/2021 9:40 AM CDT) Provation Patient Name: Khurram SPARKS OTHER Report Procedure Date: 01/03/2021 RESULTS 9:40 AM CSN: [id number] Date of : 1960 Gender: Female Attending Physician: Bao Hernández MD Procedure: Upper GI endoscopy Indications: Melena Providers: Bao Hernández MD (Doctor), Rach Orozco (Nurse), Omid Brooke Cafe Operator (Cafe Operator) Referring Physician: Aristeo Reveles Medications: Monitored Anesthesia Care Complications: No immediate [...] obtained. Prior Anticoagulants: The patient has taken no anticoagulant or antiplatelet agents. ASA Grade Assessment: III - A patient with severe systemic disease. After reviewing the risks and benefits, the patient was deemed in satisfactory condition to undergo the procedure. After obtaining informed consent, the endoscope was passed under direct vision. Throughout the procedure, the patient's blood pressure, pulse, and oxygen saturations were monitored continuously. The Endoscope was introduced through the mouth, and advanced to the third part of duodenum. The upper GI endoscopy was accomplished without difficulty. The patient tolerated the procedure well. Findings: Esophagogastric landmarks were identified: the gastroesophageal junction was found at 41 cm from the incisors. The examined esophagus was essentially normal. A few columns of trace varices were seen. No high risk stigmata. Moderate portal hypertensive gastropathy was found in the entire examined stomach. No gastric varices were seen. The examined duodenum was normal. No fresh or altered blood or cause of bleeding were seen in the upper GI tract. Impression: - Esophagogastric landmarks identified. - Trace esophageal varices without high risk features. - Portal hypertensive gastropathy. - Normal examined duodenum. - No specimens collected. Estimated Blood Loss: Estimated blood loss: none. Recommendation: - Patient has a contact number available for emergencies. The signs and symptoms of potential delayed complications were discussed with the patient. Return to normal activities tomorrow. Written discharge instructions were provided to the patient. - Resume previous diet. - Continue present medications. - Inpatient Hepatology is following. Scope In: 10:00:56 AM Scope Out: 10:04:57 AM Total Procedure Duration Time 0 hours 4 minutes 1 second Procedure Code(s): --- Professional --- 43449, Esophagogastroduodenoscopy, flexible, transoral; diagnostic, including collection of specimen(s) by brushing or washing, when performed (separate procedure) Diagnosis Code(s): --- Professional --- K92.1, Melena (includes Hematochezia) K31.89, Other diseases of stomach and duodenum K76.6, Portal hypertension CPT copyright 2020 [employer] [place] [employer]. All rights reserved. The codes documented in this report are preliminary and upon engineer automated equipment review may be revised to meet current compliance requirements. Attending Participation: I personally performed the entire procedure. MD Bao Salguero MD 01/03/2021 10:10:10 AM The attending physician has electronically signed and finalized this document. Number of Addenda: 0 Note Initiated On: 01/03/2021 9:40 AM Specimen Performing Organization Address City/State/ZIP Code P shane Number [facility] RESULTS * T SPINE 3 VIEWS (01/03/2021 12:51 AM CDT) Modality Anatomical Region Laterality Computed Radiography Spine, T-Spine Specimen Narrative [facility] RESULTS - 01/03/2021 10:45 AM CDT T SPINE 3 VIEWS, L SPINE AP & LATERAL, SACRUM & COCCYX MIN 2 VIEWS CLINICAL HISTORY: Female, 60 years old. Fell on back. COMPARISON: CT abdomen/pelvis 12/30/2020 and 12/22/2020 T-spine: 1. No acute fracture or malalignment o f the thoracic spine. 2. Stable mild compression deformity o f T11 vertebral body. 3. Moderate disc disease noted at C4-C 7. L-spine: 1. Stable Grade 1 anterolisthesis of L 5 on S1, associated with known chronic bilateral L5 spondylolysis seen on recent CTs. 2. Mild anterior vertebral body spurri ng L2-S1. 3. Contrast material overlying the sto mach. Correlate with prior oral contrast administration. Sacrum and coccyx: 1. No acute fracture. 2. Mild bilateral SI joint arthrosis. By my electronic signature, I attest that I have personally reviewed the images for this examination and formulated the interpretations and opinions expressed in this report Finalized by Javi Wynn M.D. on 01/03/2021 10:45 AM. Dictated by Riley Irizarry D.O. on 01/03/2021 9:04 AM. Procedure Note Javi Wynn MD - 01/03/2021 T SPINE 3 VIEWS, L SPINE AP & LATERAL, SACRUM & COCCYX MIN 2 VIEWS CLINICAL HISTORY: Female, 60 years old. Fell on back. COMPARISON: CT abdomen/pelvis 12/30/2020 and 12/22/2020 T-spine: 1. No acute fracture or malalignment of the thoracic spine. 2. Stable mild compression deformity of T11 vertebral body. 3. Moderate disc disease noted at C4-C7 . L-spine: 1. Stable Grade 1 anterolisthesis of L5 on S1, associated with known chronic bilateral L5 spondylolysis seen on recent CTs. 2. Mild anterior vertebral body spurrin g L2-S1. 3. Contrast material overlying the stom ach. Correlate with prior oral contrast administration. Sacrum and coccyx: 1. No acute fracture. 2. Mild bilateral SI joint arthrosis. By my electronic signature, I attest that I have personally reviewed the images for this examination and formulated the interpretations and opinions expressed in this report Finalized by Javi Wynn M.D. on 01/03/2021 10:45 AM. Dictated by Riley Irizarry D.O. on 01/03/2021 9:04 AM. Performing Organization Address City/State/ZIP Code P shane Number [facility] RESULTS * SACRUM & COCCYX MIN 2 VIEWS (01/03/2021 12:50 AM CDT) Modality Anatomical Region Laterality Computed Radiography Pelvis Specimen Narrative [facility] RESULTS - 01/03/2021 10:45 AM CDT T SPINE 3 VIEWS, L SPINE AP & LATERAL, SACRUM & COCCYX MIN 2 VIEWS CLINICAL HISTORY: Female, 60 years old. Fell on back. COMPARISON: CT abdomen/pelvis 12/30/2020 and 12/22/2020 T-spine: 1. No acute fracture or malalignment o f the thoracic spine. 2. Stable mild compression deformity o f T11 vertebral body. 3. Moderate disc disease noted at C4-C 7. L-spine: 1. Stable Grade 1 anterolisthesis of L 5 on S1, associated with known chronic bilateral L5 spondylolysis seen on recent CTs. 2. Mild anterior vertebral body spurri ng L2-S1. 3. Contrast material overlying the sto mach. Correlate with prior oral contrast administration. Sacrum and coccyx: 1. No acute fracture. 2. Mild bilateral SI joint arthrosis. By my electronic signature, I attest that I have personally reviewed the images for this examination and formulated the interpretations and opinions expressed in this report Finalized by Javi Wynn M.D. on 01/03/2021 10:45 AM. Dictated by Riley Irizarry D.O. on 01/03/2021 9:04 AM. Procedure Note Javi Wynn MD - 01/03/2021 T SPINE 3 VIEWS, L SPINE AP & LATERAL, SACRUM & COCCYX MIN 2 VIEWS CLINICAL HISTORY: Female, 60 years old. Fell on back. COMPARISON: CT abdomen/pelvis 12/30/2020 and 12/22/2020 T-spine: 1. No acute fracture or malalignment of the thoracic spine. 2. Stable mild compression deformity of T11 vertebral body. 3. Moderate disc disease noted at C4-C7 . L-spine: 1. Stable Grade 1 anterolisthesis of L5 on S1, associated with known chronic bilateral L5 spondylolysis seen on recent CTs. 2. Mild anterior vertebral body spurrin g L2-S1. 3. Contrast material overlying the stom ach. Correlate with prior oral contrast administration. Sacrum and coccyx: 1. No acute fracture. 2. Mild bilateral SI joint arthrosis. By my electronic signature, I attest that I have personally reviewed the images for this examination and formulated the interpretations and opinions expressed in this report Finalized by Javi Wynn M.D. on 01/03/2021 10:45 AM. Dictated by Riley Irizarry D.O. on 01/03/2021 9:04 AM. Performing Organization Address City/State/ZIP Code P shane Number [facility] * L SPINE AP & LATERAL (01/03/2021 12:48 AM CDT) Modality Anatomical Region Laterality Computed Radiography Spine, L-Spine Specimen Narrative [facility] - 01/03/2021 10:45 AM CDT T SPINE 3 VIEWS, L SPINE AP & LATERAL, SACRUM & COCCYX MIN 2 VIEWS CLINICAL HISTORY: Female, 60 years old. Fell on back. COMPARISON: CT abdomen/pelvis 12/30/2020 and 12/22/2020 T-spine: 1. No acute fracture or malalignment o f the thoracic spine. 2. Stable mild compression deformity o f T11 vertebral body. 3. Moderate disc disease noted at C4-C 7. L-spine: 1. Stable Grade 1 anterolisthesis of L 5 on S1, associated with known chronic bilateral L5 spondylolysis seen on recent CTs. 2. Mild anterior vertebral body spurri ng L2-S1. 3. Contrast material overlying the sto mach. Correlate with prior oral contrast administration. Sacrum and coccyx: 1. No acute fracture. 2. Mild bilateral SI joint arthrosis. By my electronic signature, I attest that I have personally reviewed the images for this examination and formulated the interpretations and opinions expressed in this report Finalized by Javi Wynn M.D. on 01/03/2021 10:45 AM. Dictated by Riley Irizarry D.O. on 01/03/2021 9:04 AM. Procedure Note Javi Wynn MD - 01/03/2021 T SPINE 3 VIEWS, L SPINE AP & LATERAL, SACRUM & COCCYX MIN 2 VIEWS CLINICAL HISTORY: Female, 60 years old. Fell on back. COMPARISON: CT abdomen/pelvis 12/30/2020 and 12/22/2020 T-spine: 1. No acute fracture or malalignment of the thoracic spine. 2. Stable mild compression deformity of T11 vertebral body. 3. Moderate disc disease noted at C4-C7 . L-spine: 1. Stable Grade 1 anterolisthesis of L5 on S1, associated with known chronic bilateral L5 spondylolysis seen on recent CTs. 2. Mild anterior vertebral body spurrin g L2-S1. 3. Contrast material overlying the stom ach. Correlate with prior oral contrast administration. Sacrum and coccyx: 1. No acute fracture. 2. Mild bilateral SI joint arthrosis. By my electronic signature, I attest that I have personally reviewed the images for this examination and formulated the interpretations and opinions expressed in this report Finalized by Javi Wynn M.D. on 01/03/2021 10:45 AM. Dictated by Riley Irizarry D.O. on 01/03/2021 9:04 AM. Performing Organization Address [facility] Code P shane Number [facility] RES[facility] * (ABNORMAL) POC GLUCOSE (01/02/2021 11:10 PM CDT) Pathologist [facility] [place] Glucose, POC 151 (H) 70 - 100 MG/DL [facility] Specimen Performing Organization Address [facility] P shane Number [facility] [address] [place] [address] * URINALYSIS, MICROSCOPIC (01/02/2021 7:30 PM CDT) Pathologist [facility] [place] WBCs,UA 2-10 0 - 2 /HPF [facility] RBCs,UA NONE 0 - 3 /HPF [facility] MucousUA TRACE [facility] Squamous 0-2 0 - 5 [facility] Epithelial Cells Specimen Urine specimen (specimen) - Urine Performing Organization Address [facility] P shane Number [facility] [address] [place] [phone] * (ABNORMAL) URINALYSIS DIPSTICK (01/02/2021 7:30 PM CDT) Color,UA YELLOW [facility] Turbidity,UA CLEAR CLEAR-CLEAR [facility] Specific 1.012 1.003 - 1.035 [facility] Arverne-Urine pH,UA 6.0 5.0 - 8.0 [facility] Protein,UA NEG NEG-NEG [facility] Glucose,UA NEG NEG-NEG [facility] Ketones,UA NEG NEG-NEG [facility] Bilirubin,UA NEG NEG-NEG [facility] Blood,UA NEG NEG-NEG [facility] Urobilinogen,UA NORMAL NORM-NORMAL [facility] Nitrite,UA NEG NEG-NEG [facility] Leukocytes,UA NEG NEG-NEG [facility] Urine Ascorbic POS (A) NEG-NEG [facility] Acid, UA Comment: Ascorbic acid is found in various food supplies and dietary supplements, and is reported to cause strong interference with Macroscopic Urinalysis testing for glucose, blood and nitrite, and can result in a false negative result. Specimen Urine specimen (specimen) - Urine Performing Organization Address City/State/ZIP Code P shane Number [facility] [address] [place] [address] * IR PARACENTESIS DIAGNOSTIC (01/02/2021 4:13 PM CDT) Modality Anatomical Region Laterality Ultrasound Specimen Impressions [facility] RESULTS - 01/03/2021 7:38 AM CDT 1. Successful ultrasound guided diagno stic and therapeutic paracentesis. Approved by Giancarlo Bacon M.D. on 01/02/2021 4:25 PM By my electronic signature, I attest that I have personally reviewed the images for this examination and formulated the interpretations and opinions expressed in this report Finalized by Tae Tatum M.D. on 01/03/2021 7:38 AM. Dictated by Giancarlo Bacon M.D. on 01/02/2021 4:24 PM. Narrative [facility] RESULTS - 01/03/2021 7:38 AM CDT Ultrasound-guided diagnostic and therapeutic paracentesis CLINICAL INDICATION: Ascites. MEDICATIONS: I was personally responsible for the administration of moderate sedation services during the procedure performed and I confirm requirements described in CPT section on moderate sedation were followed, including the use of an independent trained observer who had no other duties during the procedure. See nursing log for complete details; the drugs utilized were: subcutaneous Lidocaine 2% MARKETING CONTENT SPECIALIST: Giancarlo Bacon M.D. TECHNIQUE: I, Larry Tatum M.D, the attending radiologist, was present for the critical and turpin portions of the procedure with a midlevel, resident, and/or fellow participating. Overlapping portions were non turpin and I was immediately available. I interpret the critical and turpin portion of this procedure to have been needle access. Transverse real time images were obtained through the abdomen. The risks and benefits of this procedure were discussed and informed written consent was obtained prior to performing the procedure. The abdomen was then prepped and draped in usual sterile fashion. Limited ultrasound of the abdomen was performed. Under ultrasound guidance, a 5 Dutch centesis needle was advanced into the peritoneal fluid collection and catheter advanced into the collection over the needle, and needle was removed. Real-time grayscale sonographic images were obtained and sent to PACS demonstrating moderate abdominal ascites. The catheter was connected to Vacutainer bottles and 5300 mL fluid was removed, some of which was sent for analysis. There were no immediate complications of the procedure. No significant blood loss. Patient tolerated procedure well. FINDINGS: Free peritoneal fluid demonstrated on ultrasound. Procedure Note Larry Tatum MD - 01/03/2021 Ultrasound-guided diagnostic and therapeutic paracentesis CLINICAL INDICATION: Ascites. MEDICATIONS: I was personally responsible for the administration of moderate sedation services during the procedure performed and I confirm requirements described in CPT section on moderate sedation were followed, including the use of an independent trained observer who had no other duties during the procedure. See nursing log for complete details; the drugs utilized were: subcutaneous Lidocaine 2% MARKETING CONTENT SPECIALIST: Giancarlo Bacon M.D. TECHNIQUE: I, Larry Tatum M.D, the attending radiologist, was present for the critical and turpin portions of the procedure with a midlevel, resident, and/or fellow participating. Overlapping portions were non turpin and I was immediately available. I interpret the critical and turpin portion of this procedure to have been needle access. Transverse real time images were obtained through the abdomen. The risks and benefits of this procedure were discussed and informed written consent was obtained prior to performing the procedure. The abdomen was then prepped and draped in usual sterile fashion. Limited ultrasound of the abdomen was performed. Under ultrasound guidance, a 5 Dutch centesis needle was advanced into the peritoneal fluid collection and catheter advanced into the collection over the needle, and needle was removed. Real-time grayscale sonographic images were obtained and sent to PACS demonstrating moderate abdominal ascites. The catheter was connected to Vacutainer bottles and 5300 mL fluid was removed, some of which was sent for analysis. There were no immediate complications of the procedure. No significant blood loss. Patient tolerated procedure well. FINDINGS: Free peritoneal fluid demonstrated on ultrasound. IMPRESSION 1. Successful ultrasound guided diagnos tic and therapeutic paracentesis. Approved by Giancarlo Bacon M.D. on 01/02/2021 4:25 PM By my electronic signature, I attest that I have personally reviewed the images for this examination and formulated the interpretations and opinions expressed in this report Finalized by Tae Tatum M.D. on 01/03/2021 7:38 AM. Dictated by Giancarlo Bacon M.D. on 01/02/2021 4:24 PM. Performing Organization Address City/State/ZIP Code P shane Number [facility] RESULTS * IR ABDOMINAL DRAIN REMOVAL (01/02/2021 4:13 PM CDT) Modality Anatomical Region Laterality Ultrasound Specimen Narrative JOSUÉ RAD - 01/02/2021 4:15 PM CDT This IR procedure does not require a dictated result. Performing Organization Address [facility]/ZIP Code P shane Number [facility] * PERITONEAL FLUID TOTAL PROTEIN (01/02/2021 4:00 PM CDT) Only the most recent of 3 results within the time period is included. Peritoneal 2.7 g/dL [facility] Fluid Total Comment: Protein Ascites fluid total prote in >1g/dL favors secondary bacterial peritonitis over spontaneous bacterial peritonitis Specimen Peritoneal Fluid Performing Organization Address [facility]/ZIP [facility] P shane Number [facility] [address] [place] [address] * PERITONEAL FLUID GLUCOSE (01/02/2021 4:00 PM CDT) Peritoneal 96 70 - 100 mg/dL [facility] Fluid Glucose Comment: Ascites fluid glucose <50 mg/dL favors secondary bacterial peritonitis over spontaneous bacterial peritonitis Specimen Peritoneal Fluid Performing Organization Address [facility]/ZIP [facility] P shane Number [facility] [address] [place] [address] * PERITONEAL FLUID ALBUMIN (01/02/2021 4:00 PM CDT) Only the most recent of 3 results within the time period is included. Peritoneal <1.5 g/dL [facility] Fluid Albumin Comment: Serum to ascites albumin gradient (SAAG) >1.1 g/d is seen in portal hypertension. SAAG <1.1 g/dL is seen in cancer and infections Specimen Peritoneal Fluid Performing Organization Address City/[facility]/ZIP Code P shane Number [facility] [address] [place] [address] * GRAM STAIN (01/02/2021 4:00 PM CDT) Only the most recent of 3 results within the time period is included. Battery Name GRAM STAIN [facility] Report Status FINAL 01/02/2021 [facility] Specimen FLUID PARACENTESIS FLUID [facility] Description Special No special requests [facility] Requests Gram Stain NO NEUTROPHILS SEEN [facility] Gram Stain NO ORGANISMS SEEN [facility] Specimen Fluid sample (specimen) - Paracentesis Fluid Performing Organization Address City/[facility]/ZIP Code P shane Number [facility] [address] [place] [address] * CULTURE-WOUND/TISSUE/FLUID(AEROBIC ONLY)W/SENSITIVITY (01/02/2021 4:00 PM CDT) Only the most recent of 3 results within the time period is included. Battery Name ROUTINE CULTURE [facility] Report Status FINAL 01/07/2021 [facility] Specimen FLUID PARACENTESIS FLUID MAIN LAB Description Special No special requests [facility] Requests Direct Gram NO NEUTROPHILS SEEN [facility] Stain Direct Gram NO ORGANISMS SEEN [facility] Stain Culture NO GROWTH 5 DAYS [facility] Specimen Fluid sample (specimen) - Paracentesis Fluid Performing Organization Address [facility]/ZIP Code P shane Number [facility] [address] [place] [address] * CULTURE-ANAEROBIC (01/02/2021 4:00 PM CDT) Only the most recent of 3 results within the time period is included. Battery Name ANAEROBE CULTURE [facility] Report Status FINAL 01/08/2021 [facility] Specimen FLUID PARACENTESIS FLUID [facility] Description Special No special requests [facility] Requests Culture NO ANAEROBES ISOLATED [facility] Specimen Fluid sample (specimen) - Paracentesis Fluid Performing Organization Address City/[facility]/ZIP Code P shane Number [facility] [address] [place] [address] * CELL COUNT W/DIFF-FLUIDS (01/02/2021 4:00 PM CDT) Only the most recent of 3 results within the time period is included. White Blood 160 /UL [facility] Cells,Fluid Red Blood 8,400 /UL [facility] Cells,Fluid Segmented 21 % [facility] Neutrophils, Fluid Lymphocytes,Flu 44 % [facility] id Monocyte/Histo, 34 % [facility] Fluid Eosinophils, 1 % [facility] Fluid Fluid Source FLUID MAIN LAB PERITONEAL FLUID Pathology HEMORRHAGIC FLUID MAIN LAB Interpretation, Fluid Pathologist INTERPRETED BY CHIKI HUYNH M.D. [facility] AB Signature By the PATH SIGNATURE ABOVE , I attest that I have personally formulated the final interpretation expressed in this report and that the above diagnosis is based upon my examination of the slides and/or other material indicated in this report. Specimen Fluid sample (specimen) - Peritoneal Fluid Performing Organization Address City/[facility]/ZIP Code P shane Number MAIN LAB [address] [place] [address] * (ABNORMAL) IRON + BINDING CAPACITY + %SAT+ FERRITIN (01/02/2021 2:20 PM CDT) Iron 38 (L) 50 - 160 MCG/DL MAIN LAB Iron 301 270 - 380 MCG/DL [facility] Binding-TIBC % Saturation 13 (L) 28 - 42 % [facility] Ferritin 1,540 (H) 10 - 200 NG/ML MAIN LAB Specimen Performing Organization Address City/[facility] Code P shane Number MAIN LAB [address] [place] [address] * TYPE & CROSSMATCH (01/02/2021 2:20 PM CDT) Units Ordered 0 MAIN LAB Crossmatch 01/05/2021,2359 MAIN LAB Expires Record Check FOUND MAIN LAB ABO/RH(D) O POS MAIN LAB Antibody Screen NEG MAIN LAB Electronic YES MAIN LAB Crossmatch Specimen Blood Performing Organization Address [facility]/ZIP Code P shane Number MAIN LAB [address] [place] [address] * COVID-19 (SARS-COV-2) PCR (01/02/2021 2:00 PM CDT) Only the most recent of 2 results within the time period is included. COVID-19 FLOCKED SWAB MAIN LAB (SARS-CoV-2) NASOPHARYNGEAL PCR Source COVID-19 NOT DETECTED DN-NOT DETECTED [facility] (SARS-CoV-2) Comment: PCR This [...] performance characteristics have been verified by the [facility] clinical laboratory. Fact sheet for providers: https://www.fda.gov/media/5895 13/download Fact sheet for patients: https://www.fda.gov/media/9568 12/download Specimen Flocked Swab - Nasopharyngeal Performing Organization Address City/State/ZIP Code P shane Number [facility] [address] [place] [phone] * (ABNORMAL) POC BASIC METABOLIC PANEL (BMP) (01/02/2021 9:41 AM CDT) Only the most recent of 2 results within the time period is included. Sodium-POC 128 (L) 137 - 147 MMOL/L [facility] Potassium-POC 5.7 (H) 3.5 - 5.1 MMOL/L [facility] Chloride, POC 94 (L) 98 - 110 MMOL/L [facility] CO2, POC 21 21 - 30 MMOL/L [facility] Anion Gap, POC 20 (H) 3 - 12 [facility] Glucose, POC 106 (H) 70 - 100 MG/DL [facility] Bun, POC 32 (H) 7 - 25 MG/DL [facility] Creatinine, POC 2.0 (H) 0.4 - 1.00 MG/DL [facility] Ionized 1.14 1.0 - 1.3 MMOL/L [facility] Calcium-POC Specimen Performing Organization Address City/State/ZIP [facility] P shane Number [facility] [address] [place] [address] * DIGOXIN LEVEL (01/02/2021 8:58 AM CDT) Only the most recent of 5 results within the time period is included. Digoxin 0.5 0.5 - 1.0 NG/ML MAIN LAB Specimen Blood Performing Organization Address City/State/ZIP Code P shane Number MAIN LAB [address] [place] [address] * TELEMETRY STRIPS-SCAN (01/02/2021 12:00 AM CDT) Narrative 01/02/2021 12:00 AM CDT Ordered by an unspecified provider. * TELEMETRY STRIPS-SCAN (01/02/2021 12:00 AM CDT) Narrative 01/02/2021 12:00 AM CDT Ordered by an unspecified provider. * TELEMETRY STRIPS-SCAN (01/02/2021 12:00 AM CDT) Narrative 01/02/2021 12:00 AM CDT Ordered by an unspecified provider. * TELEMETRY STRIPS-SCAN (01/02/2021 12:00 AM CDT) Narrative 01/02/2021 12:00 AM CDT Ordered by an unspecified provider. * ECG-SCAN (01/02/2021 12:00 AM CDT) Narrative 01/02/2021 12:00 AM CDT Ordered by an unspecified provider. * ECG-SCAN (01/02/2021 12:00 AM CDT) Narrative 01/02/2021 12:00 AM CDT Ordered by an unspecified provider. * ECG-SCAN (01/02/2021 12:00 AM CDT) Narrative 01/02/2021 12:00 AM CDT Ordered by an unspecified provider. * CT ABD/PELV W CONTRAST (12/30/2020 12:15 PM CDT) Only the most recent of 2 results within the time period is included. Modality Anatomical Region Laterality Computed Tomography Abdomen, Pelvis Specimen Impressions RAD RESULTS - 12/30/2020 3:14 PM CDT 1. Marked decrease in size of previously embolized left ventral abdominal wall intramuscular hematoma status post placement of percutaneous pigtail drain. 2. Persistent cardiomegaly, interstitial edema, trace right pleural effusion, and diffuse body wall edema consistent with CHF/volume overload. 3. Continued mild hepatomegaly and morph ologic features of cirrhosis, again likely secondary to chronic passive congestion related to underlying cardiac dysfunction. 4. Portal hypertension with persistent m ild splenomegaly, scattered portosystemic collaterals, mesenteric congestion, and moderate volume ascites. 5. No significant change in segments of large and small bowel mural thickening, likely related to underlying portal hypertension. No bowel obstruction. 6. Asymmetric decreased enhancement of t he left iliofemoral veins which is likely secondary to asymmetric mixing of opacified and unopacified blood. Left lower extremity Doppler ultrasound could be obtained for further evaluation of underlying DVT if clinically indicated. Finalized by Ceci Juan M.D. on 12/30/2020 3:14 PM. Dictated by Ceci Juan M.D. on 12/30/2020 2:54 PM. Narrative [facility] RESULTS - 12/30/2020 3:[address] ABDOMEN AND PELVIS Clinical Indication: Evaluation of hematoma resolution. Technique: Multiple contiguous axial images were obtained through the abdomen and pelvis following the administration of IV contrast material. Portal venous phase of postcontrast imaging was obtained. Post processing coronal and sagittal reconstruction images were made from the axial images. IV contrast: Yes Bowel contrast: None Comparison: CT abdomen/pelvis December 22, 2020 and focused abdominal ultrasound December 25, 2020. FINDINGS: Lower Thorax: Persistent trace right pleural effusion. Bibasilar interlobular septal thickening and hazy groundglass opacities. Persistent cardiomegaly with partially visualized biatrial enlargement. Liver and Biliary system: Redemonstration of hepatomegaly with cirrhotic liver morphology. Dilated IVC and hepatic veins again noted. No definite focal liver lesion on this single phase exam. No gallbladder or biliary ductal dilatation. Patent major portal veins. Spleen: Persistent mild splenomegaly, best appreciated in the axial plane. Adrenal Glands and Kidneys: No discrete adrenal nodule. Tiny right lower pole renal calculus. No hydronephrosis. Tiny right lower pole renal cortical hypodensity is too small to characterize. Pancreas and Retroperitoneum: Unremarkable pancreas. Scattered retroperitoneal collaterals without central retroperitoneal lymphadenopathy. Aorta and Major Vessels: Diminutive bilateral iliac arteries without aortoiliac aneurysm identified. Asymmetric diminished opacification of the left common iliac, internal/external iliac, and femoral veins. Bowel, Mesentery and Peritoneal space: Normal caliber large and small bowel with similar segments of mild bowel wall thickening, likely from underlying portal hypertension. Persistent moderate volume ascites with mesenteric congestion. Scattered portosystemic collaterals. Pelvis: Mildly distended bladder. Absent uterus. Scattered pelvic varices. Abdominal wall and Osseous Structures: Partially visualized prior median sternotomy. Embolization coils again seen along the left ventral abdominal wall. Interval placement of percutaneous pigtail drain within the previously seen large left ventral abdominal wall intramuscular hematoma which has significantly decreased in size, now measuring up to approximately 2.4 cm in thickness (series 3 image 66). Persistent diffuse body wall edema with more loculated fluid along the left lateral aspect of the abdominal wall hematoma, also decreased in size, with suggested extension to the skin surface (series 3 image 64). Numerous abdominal wall collaterals. Stable mild superior endplate compression deformity of T11. Procedure Note Ceci Juan MD - 12/30/2020 CT ABDOMEN AND PELVIS Clinical Indication: Evaluation of hematoma resolution. Technique: Multiple contiguous axial images were obtained through the abdomen and pelvis following the administration of IV contrast material. Portal venous phase of postcontrast imaging was obtained. Post processing coronal and sagittal reconstruction images were made from the axial images. IV contrast: Yes Bowel contrast: None Comparison: CT abdomen/pelvis December 22, 2020 and focused abdominal ultrasound December 25, 2020. FINDINGS: Lower Thorax: Persistent trace right pleural effusion. Bibasilar interlobular septal thickening and hazy groundglass opacities. Persistent cardiomegaly with partially visualized biatrial enlargement. Liver and Biliary system: Redemonstration of hepatomegaly with cirrhotic liver morphology. Dilated IVC and hepatic veins again noted. No definite focal liver lesion on this single phase exam. No gallbladder or biliary ductal dilatation. Patent major portal veins. Spleen: Persistent mild splenomegaly, best appreciated in the axial plane. Adrenal Glands and Kidneys: No discrete adrenal nodule. Tiny right lower pole renal calculus. No hydronephrosis. Tiny right lower pole renal cortical hypodensity is too small to characterize. Pancreas and Retroperitoneum: Unremarkable pancreas. Scattered retroperitoneal collaterals without central retroperitoneal lymphadenopathy. Aorta and Major Vessels: Diminutive bilateral iliac arteries without aortoiliac aneurysm identified. Asymmetric diminished opacification of the left common iliac, internal/external iliac, and femoral veins. Bowel, Mesentery and Peritoneal space: Normal caliber large and small bowel with similar segments of mild bowel wall thickening, likely from underlying portal hypertension. Persistent moderate volume ascites with mesenteric congestion. Scattered portosystemic collaterals. Pelvis: Mildly distended bladder. Absent uterus. Scattered pelvic varices. Abdominal wall and Osseous Structures: Partially visualized prior median sternotomy. Embolization coils again seen along the left ventral abdominal wall. Interval placement of percutaneous pigtail drain within the previously seen large left ventral abdominal wall intramuscular hematoma which has significantly decreased in size, now measuring up to approximately 2.4 cm in thickness (series 3 image 66). Persistent diffuse body wall edema with more loculated fluid along the left lateral aspect of the abdominal wall hematoma, also decreased in size, with suggested extension to the skin surface (series 3 image 64). Numerous abdominal wall collaterals. Stable mild superior endplate compression deformity of T11. IMPRESSION 1. Marked decrease in size of previously embolized left ventral abdominal wall intramuscular hematoma status post placement of percutaneous pigtail drain. 2. Persistent cardiomegaly, interstitial edema, trace right pleural effusion, and diffuse body wall edema consistent with CHF/volume overload. 3. Continued mild hepatomegaly and morph ologic features of cirrhosis, again likely secondary to chronic passive congestion related to underlying cardiac dysfunction. 4. Portal hypertension with persistent m ild splenomegaly, scattered portosystemic collaterals, mesenteric congestion, and moderate volume ascites. 5. No significant change in segments of large and small bowel mural thickening, likely related to underlying portal hypertension. No bowel obstruction. 6. Asymmetric decreased enhancement of t he left iliofemoral veins which is likely secondary to asymmetric mixing of opacified and unopacified blood. Left lower extremity Doppler ultrasound could be obtained for further evaluation of underlying DVT if clinically indicated. Finalized by Ceci Juan M.D. on 12/30/2020 3:14 PM. Dictated by Ceci Juan M.D. on 12/30/2020 2:54 PM. Performing Organization Address City/State/ZIP Code P shane Number [facility] * PHOSPHORUS CELLULAR THERAPEUTICS (12/30/2020 5:06 AM CDT) Only the most recent of 8 results within the time period is included. Phosphorus 2.9 2.0 - 4.5 MG/DL [facility] Specimen Blood Performing Organization Address City/State/ZIP Code P shane Number [facility] [address] [place] [address] * MAGNESIUM CELLULAR THERAPEUTICS (12/30/2020 5:06 AM CDT) Only the most recent of 8 results within the time period is included. Magnesium 1.9 1.6 - 2.6 mg/dL [facility] Specimen Blood Performing Organization Address City/State/ZIP Code P shane Number [facility] [address] [place] [address] * PTT (APTT) (12/30/2020 5:06 AM CDT) Only the most recent of 8 results within the time period is included. APTT 35.4 24.0 - 36.5 SEC [facility] Specimen Blood Performing Organization Address City/State/ZIP Code P shane Number [facility] [address] [place] [address] * US ABDOMEN LIMITED (12/25/2020 4:40 PM CDT) Modality Anatomical Region Laterality Ultrasound Abdomen Specimen Impressions [facility] - 12/25/2020 4:47 PM CDT FINDINGS/IMPRESSION: Targeted examination of the area of concern demonstrates an approximately 2.7 x 2.3 x 2.5 cm complex fluid collection in the subcutaneous tissues just deep to the skin surface. There is no internal blood flow by color Doppler. Movement of debris within the collection is seen on cine clips (series 1B). The rectus sheath hematoma deeper to this area is partially visualized but poorly evaluated. The appearance suggests evolving/liquefying hematoma. Finalized by Loyda Romeo M.D. on 12/25/2020 4:47 PM. Dictated by Loyda Romeo M.D. on 12/25/2020 4:45 PM. Narrative [facility] - 12/25/2020 4:47 PM CDT US ABDOMEN LIMITED CLINICAL INDICATION: Female, 60 years old. Recent left rectus sheath hematoma aspiration with enlarging subcutaneous tender fluid collection located inferior to dressing. TECHNIQUE: Focused grayscale and color Doppler imaging was performed of the area of concern in the left anterior abdominal wall inferior to the dressings. COMPARISON: CT abdomen and pelvis 12/22/2020 Procedure Note Loyda Romeo MD - 12/25/2020 US ABDOMEN LIMITED CLINICAL INDICATION: Female, 60 years old. Recent left rectus sheath hematoma aspiration with enlarging subcutaneous tender fluid collection located inferior to dressing. TECHNIQUE: Focused grayscale and color Doppler imaging was performed of the area of concern in the left anterior abdominal wall inferior to the dressings. COMPARISON: CT abdomen and pelvis 12/22/2020 IMPRESSION FINDINGS/IMPRESSION: Targeted examination of the area of concern demonstrates an approximately 2.7 x 2.3 x 2.5 cm complex fluid collection in the subcutaneous tissues just deep to the skin surface. There is no internal blood flow by color Doppler. Movement of debris within the collection is seen on cine clips (series 1B). The rectus sheath hematoma deeper to this area is partially visualized but poorly evaluated. The appearance suggests evolving/liquefying hematoma. Finalized by Loyda Romeo M.D. on 12/25/2020 4:47 PM. Dictated by Loyda Romeo M.D. on 12/25/2020 4:45 PM. Performing Organization Address City/State/ZIP Code P shane Number [facility] * (ABNORMAL) VANCOMYCIN TROUGH (12/24/2020 9:15 PM CDT) Vancomycin 9.5 (L) 10.0 - 20.0 MCG/ML [facility] Trough Specimen Venous blood specimen (specimen) - Blood Performing Organization Address City/[facility] P shane Number [facility] [address] [place] [address] * TROPONIN-I (12/23/2020 11:32 PM CDT) Only the most recent of 5 results within the time period is included. Troponin-I 0.04 0.0 - 0.05 NG/ML [facility] Specimen Blood Performing Organization Address [facility] P shane Number [facility] [address] [place] [id number] * IR PARACENTESIS DIAGNOSTIC + THERAPEUTIC (12/23/2020 10:59 AM CDT) Modality Anatomical Region Laterality X-Ray Angiography Specimen Impressions [facility] - 12/23/2020 11:12 AM CDT Successful ultrasound guided paracentesis. 4300 mL of fluid was removed. Scout Toribio M.D, the attending radiologist, was present for the critical and turpin portions of the procedure with a midlevel, resident, and/or fellow participating. Overlapping portions were non turpin and I was immediately available. I interpret the critical and turpin portion of this procedure. @TT Approved by Ruddy Blunt M.D. on 12/23/2020 11:12 AM By my electronic signature, I attest that I have personally reviewed the images for this examination and formulated the interpretations and opinions expressed in this report Finalized by Scout Nelson M.D. on 12/23/2020 11:12 AM. Dictated by Ruddy Blunt M.D. on 12/23/2020 11:11 AM. Narrative [facility] - 12/23/2020 11:12 AM CDT Ultrasound-guided diagnostic and therapeutic paracentesis CLINICAL INDICATION: Ascites, sepsis with unknown source MARKETING CONTENT SPECIALIST: Ruddy Blunt M.D. and Scout Nelson M.D. MEDICATIONS: 10 mL subcutaneous Lidocaine 2% TECHNIQUE: Transverse real time images were obtained through the abdomen. The risks and benefits of this procedure were discussed and informed written consent was obtained prior to performing the procedure. The abdomen was then prepped and draped in usual sterile fashion. Limited ultrasound of the abdomen was performed. Under ultrasound guidance, a 5 Dutch centesis needle was advanced into the peritoneal fluid collection and catheter advanced into the collection over the needle, and needle was removed. The catheter was connected to Vacutainer bottles and 4300 mL fluid was removed. There were no immediate complications of the procedure. No significant blood loss. Patient tolerated procedure well. FINDINGS: Moderate volume free peritoneal fluid demonstrated on ultrasound. Procedure Note Scout Nelson MD - 12/23/2020 Ultrasound-guided diagnostic and therapeutic paracentesis CLINICAL INDICATION: Ascites, sepsis with unknown source MARKETING CONTENT SPECIALIST: Ruddy Blunt M.D. and Scout Nelson M.D. MEDICATIONS: 10 mL subcutaneous Lidocaine 2% TECHNIQUE: Transverse real time images were obtained through the abdomen. The risks and benefits of this procedure were discussed and informed written consent was obtained prior to performing the procedure. The abdomen was then prepped and draped in usual sterile fashion. Limited ultrasound of the abdomen was performed. Under ultrasound guidance, a 5 Dutch centesis needle was advanced into the peritoneal fluid collection and catheter advanced into the collection over the needle, and needle was removed. The catheter was connected to Vacutainer bottles and 4300 mL fluid was removed. There were no immediate complications of the procedure. No significant blood loss. Patient tolerated procedure well. FINDINGS: Moderate volume free peritoneal fluid demonstrated on ultrasound. IMPRESSION Successful ultrasound guided paracentesis. 4300 mL of fluid was removed. IScout M.D, the attending radiologist, was present for the critical and turpin portions of the procedure with a midlevel, resident, and/or fellow participating. Overlapping portions were non turpin and I was immediately available. I interpret the critical and turpin portion of this procedure. @TT Approved by Ruddy Blunt M.D. on 12/23/2020 11:12 AM By my electronic signature, I attest that I have personally reviewed the images for this examination and formulated the interpretations and opinions expressed in this report Finalized by Scout Nelson M.D. on 12/23/2020 11:12 AM. Dictated by Ruddy Blunt M.D. on 12/23/2020 11:11 AM. Performing Organization Address City/State/ZIP Code P shane Number [facility] * IR ASPIRATION/DRAIN (12/23/2020 10:59 AM CDT) Modality Anatomical Region Laterality X-Ray Angiography Specimen Impressions [facility] - 12/23/2020 11:11 AM CDT Ultrasound-guided drain placement into the rectus sheath hematoma. Scout Toribio M.D, the attending radiologist, was present for the critical and turpin portions of the procedure with a midlevel, resident, and/or fellow participating. Overlapping portions were non turpin and I was immediately available. I interpret the critical and turpin portion of this procedure. @TT Approved by Ruddy Blunt M.D. on 12/23/2020 10:46 AM By my electronic signature, I attest that I have personally reviewed the images for this examination and formulated the interpretations and opinions expressed in this report Finalized by Scout Nelson M.D. on 12/23/2020 11:11 AM. Dictated by Ruddy Blunt M.D. on 12/23/2020 10:45 AM. Narrative [facility] - 12/23/2020 11:11 AM CDT Ultrasound-guided drain placement: Clinical Indication: Sepsis, unknown source. Sedation Medication: I was personally responsible for the administration of moderate sedation services during the procedure performed and I confirm requirements described in CPT section on moderate sedation were followed, including the use of an independent trained observer who had no other duties during the procedure. Versed IV and fentanyl IV were given for sedation. Technique and Findings: Scout Nelson M.D. was present and/or performed the turpin portions of this exam and personally formulated the interpretations and opinions expressed in this report. The nature of the procedure, risks, benefits, and expected outcomes were discussed with the patient who then provided informed written and verbal consent. The patient was placed in a supine position on the interventional table. Initial scans through the abdomen demonstrated the rectal sheath hematoma. The patient was prepped and draped in the usual sterile manner and the superficial tissues were anesthetized with 2% lidocaine solution. An 18 gauge Seldinger needle was advanced into the fluid collection under ultrasound guidance. Sanguinous, purulent fluid was aspirated. An Amplatz wire was advanced into the fluid collection and a 10 Dutch pigtail catheter was advanced into the fluid collection. Approximately 60 ml of fluid was aspirated. The pigtail catheter was sutured in place and connected to a J VAC system. The patient tolerated the procedure well and left the department in unchanged condition. Procedure Note Scout Nelson MD - 12/23/2020 Ultrasound-guided drain placement: Clinical Indication: Sepsis, unknown source. Sedation Medication: I was personally responsible for the administration of moderate sedation services during the procedure performed and I confirm requirements described in CPT section on moderate sedation were followed, including the use of an independent trained observer who had no other duties during the procedure. Versed IV and fentanyl IV were given for sedation. Technique and Findings: Scout Nelson M.D. was present and/or performed the turpin portions of this exam and personally formulated the interpretations and opinions expressed in this report. The nature of the procedure, risks, benefits, and expected outcomes were discussed with the patient who then provided informed written and verbal consent. The patient was placed in a supine position on the interventional table. Initial scans through the abdomen demonstrated the rectal sheath hematoma. The patient was prepped and draped in the usual sterile manner and the superficial tissues were anesthetized with 2% lidocaine solution. An 18 gauge Seldinger needle was advanced into the fluid collection under ultrasound guidance. Sanguinous, purulent fluid was aspirated. An Amplatz wire was advanced into the fluid collection and a 10 Dutch pigtail catheter was advanced into the fluid collection. Approximately 60 ml of fluid was aspirated. The pigtail catheter was sutured in place and connected to a J VAC system. The patient tolerated the procedure well and left the department in unchanged condition. IMPRESSION Ultrasound-guided drain placement into the rectus sheath hematoma. I, Scout Nelson M.D, the attending radiologist, was present for the critical and turpin portions of the procedure with a midlevel, resident, and/or fellow participating. Overlapping portions were non turpin and I was immediately available. I interpret the critical and turpin portion of this procedure. @TT Approved by Ruddy Blunt M.D. on 12/23/2020 10:46 AM By my electronic signature, I attest that I have personally reviewed the images for this examination and formulated the interpretations and opinions expressed in this report Finalized by Scout Nelson M.D. on 12/23/2020 11:11 AM. Dictated by Ruddy Blunt M.D. on 12/23/2020 10:45 AM. Performing Organization Address City/State/ZIP Code P shane Number RAD RESULTS * CYTOLOGY SPECIMEN LABEL (12/23/2020 10:28 AM CDT) Only the most recent of 2 results within the time period is included. Specimen Performing Organization Address City/State/ZIP Code P shane Number [facility] * NON-[employer] CYTOLOGY (BODY FLUIDS/TISSUE) (12/23/2020 9:43 AM CDT) Cytology [facility] [email or web address] Department of Pathology and Laboratory Medicine [address] [place] [address] Surgical Pathology Office: [phone] CYTOLOGY REPORT NAME: ZARAI RODGERS CYTOLOGY #: [id number] MR #: [id number] ALT ID #: BILLING #: [id number] LOCATION: 66 DATE OF PROCEDURE: 12/23/2020 AGE: 60 SEX: F DATE RECEIVED: 12/25/2020 : 1960 TIME RECEIVED: 09:43 PHYSICIAN: RADHA BABCOCK MD DATE OF REPORT: 12/26/2020 COPY TO: DO PARISA BRITO DAVID MED ABEBE, ABEBE MED DATE OF PRINTIN12/26/2020 Material Received: A: Other Source (Cyto)- Left Abdominal hematoma B: Abdominal Fluid History: 60-year-old female with ascites and rectus sheath hematoma concerning for infection. Gross Description: A. (1 ThinPrep) Received 45mL cloudy brown fluid. B. (1 ThinPrep, 1 DQ Direct Smear) Received 1000mL cloudy orange fluid. ############################## ############################## ############ Final Diagnosis: A. Other Source (Cyto)- Left Abdominal hematoma: Marked acute inflammation. Negative for malignant cells. B. Abdominal Fluid: Negative for malignant cells. Attestation: By this signature, I attest that I have personally formulated the final interpretation expressed in this report and that the above diagnosis is based upon my examination of the slides and/or other material indicated in this report. +++Electronically Signed Out By+++ pm/12/26/2020 Interpreted by: MD Fred Edmond, , Resident Specimen Performing Organization Address City/[facility]/ZIP [facility] P shane Number [facility] [address] [place] [address] * (ABNORMAL) BNP (B-TYPE NATRIURETIC PEPTI) (12/23/2020 5:57 AM CDT) B Type 820.0 (H) 0 - 100 PG/ML [facility] Natriuretic Peptide Specimen Blood Performing Organization Address [facility] P shane Number [facility] [address] [place] [address] * VANCOMYCIN TIMED LEVEL (12/23/2020 5:56 AM CDT) Vancomycin 14.2 MCG/ML [facility] Random Specimen Blood Performing Organization Address [facility] P shane Number [facility] [address] [place] [address] * UA REFLEX LABEL (12/23/2020 3:17 AM CDT) UA Reflex Criteria for reflex to culture [facility] Culture are WBC>10, Positive Nitrit e, and/or >=+1 leukocytes. If quantity is not sufficient, an addendum will follow. Specimen Urine Performing Organization Address [facility] P shane Number [facility] [address] [place] [address] * URINALYSIS MICROSCOPIC REFLEX TO CULTURE (12/23/2020 3:17 AM CDT) WBCs,UA 0-2 0 - 2 /HPF [facility] RBCs,UA 0-2 0 - 3 /HPF [facility] Comment,UA Criteria for reflex to culture [facility] are WBC>10, Positive Nitrite, and/or >=+1 leukocytes. If quantity is not sufficient, an addendum will follow. Squamous 0-2 0 - 5 [facility] Epithelial Cells Specimen Urine Performing Organization Address [facility] P shane Number [facility] [address] [place] [address] * (ABNORMAL) URINALYSIS DIPSTICK REFLEX TO CULTURE (12/23/2020 3:17 AM CDT) Color,UA YELLOW [facility] Turbidity,UA CLEAR CLEAR-CLEAR [facility] Specific 1.030 1.003 - 1.035 [facility] Arverne-Urine pH,UA 6.0 5.0 - 8.0 [facility] Protein,UA NEG NEG-NEG [facility] Glucose,UA NEG NEG-NEG [facility] Ketones,UA NEG NEG-NEG [facility] Bilirubin,UA NEG NEG-NEG [facility] Blood,UA NEG NEG-NEG [facility] Urobilinogen,UA NORMAL NORM-NORMAL [facility] Nitrite,UA NEG NEG-NEG [facility] Leukocytes,UA NEG NEG-NEG [facility] Urine Ascorbic POS (A) NEG-NEG [facility] Acid, UA Comment: Ascorbic acid is found in various food supplies and dietary supplements, and is reported to cause strong interference with Macroscopic Urinalysis testing for glucose, blood and nitrite, and can result in a false negative result. Specimen Urine Performing Organization Address [facility] P shane Number [facility] [address] [place] [address] * UREA NITROGEN-URINE RANDOM (12/23/2020 3:17 AM CDT) Urea Nitrogen 473 MG/DL [facility] Specimen Urine specimen (specimen) - Urine Performing Organization Address City/[facility] P shane Number [facility] [address] [place] [address] * SODIUM-URINE RANDOM (12/23/2020 3:17 AM CDT) Sodium, Random <10 MMOL/L [facility] Specimen Urine specimen (specimen) - Urine Performing Organization Address [facility] P shane Number [facility] [address] [place] [id number] * OSMOLALITY-URINE RANDOM (12/23/2020 3:17 AM CDT) Osmolality-Urin 323 50 - 1,400 MOS/KG [facility] e Specimen Urine specimen (specimen) - Urine Performing Organization Address [facility] P shane Number [facility] [address] [place] [address] * CREATININE-URINE RANDOM (12/23/2020 3:17 AM CDT) Creatinine, 54 MG/DL [facility] Random Specimen Urine specimen (specimen) - Urine Performing Organization Address [facility] P shane Number [facility] [address] [place] [address] * LACTIC ACID (BG - RAPID LACTATE) (12/23/2020 1:10 AM CDT) Lactic Acid,BG 1.1 0.5 - 2.0 MMOL/L [facility] Specimen Blood Performing Organization Address [facility] P shane Number [facility] [address] [place] [address] * Critical Care (12/22/2020 9:29 PM CDT) Narrative Anastacio Mckeon MD - 12/22/2020 9:29 PM CDT Anastacio Mckeon MD 12/23/2020 10:08 PM Critical Care Performed by: Anastacio Mckeon MD Authorized by: Anastacio Mckeon MD Total critical care time in minutes: 55 Critical care was exclusive of separately billable procedures and treating other patients and teaching time. Critical care was necessary to treat or prevent imminent or life-threatening deterioration of the following conditions: cardiac failure, sepsis and hepatic failure. Critical care was spent personally by me on the following activities: development of treatment plan with patient or surrogate, discussions with consultants, interpretation of cardiac output measurements, evaluation of patient's response to treatment, examination of patient, obtaining history from patient or surrogate, ordering and performing treatments and interventions, ordering and review of radiographic studies, ordering and review of laboratory studies, pulse oximetry, re-evaluation of patient's condition and review of old charts. Attending Attestation: I personally performed the procedure myself. * CHEST SINGLE VIEW (12/22/2020 8:51 PM CDT) Modality Anatomical Region Laterality Computed Radiography Chest Specimen Narrative [facility] - 12/22/2020 9:09 PM CDT CHEST SINGLE VIEW Clinical indication: LABS ONLY. Prior studies: AP portable chest November 29, 2020 Findings: The heart is moderately enlarged similar prior study. There is mild central vascular distention. Streaky areas of atelectasis are noted in the bases. Slight decrease in small right basal pleural effusion. Previous median sternotomy is again noted with aortic valve replacement seen. Surgical clips are seen in the base the neck of the left. There is no pneumothorax. Osseous structures and upper abdomen are grossly unremarkable. Impression Findings of persistent chronic CHF. Finalized by Wesley Suazo MD, PhD on 12/22/2020 9:09 PM. Dictated by Wesley Suazo MD, PhD on 12/22/2020 9:08 PM. Procedure Note Wesley Suazo MD - 12/22/2020 CHEST SINGLE VIEW Clinical indication: LABS ONLY. Prior studies: AP portable chest November 29, 2020 Findings: The heart is moderately enlarged similar prior study. There is mild central vascular distention. Streaky areas of atelectasis are noted in the bases. Slight decrease in small right basal pleural effusion. Previous median sternotomy is again noted with aortic valve replacement seen. Surgical clips are seen in the base the neck of the left. There is no pneumothorax. Osseous structures and upper abdomen are grossly unremarkable. Impression Findings of persistent chronic CHF. Finalized by Wesley Suazo MD, PhD on 12/22/2020 9:09 PM. Dictated by Wesley Suazo MD, PhD on 12/22/2020 9:08 PM. Performing Organization Address City/State/ZIP Code P shane Number [facility] RAD RESULTS * POC LACTATE (12/22/2020 8:32 PM CDT) LACTIC ACID POC 1.4 0.5 - 2.0 MMOL/L [facility] Specimen Performing Organization Address [facility] Code P shane Number [facility] [address] [place] [address] * CULTURE-BLOOD W/SENSITIVITY (12/22/2020 7:25 PM CDT) Only the most recent of 2 results within the time period is included. Battery Name BLOOD CULTURE [facility] Report Status FINAL 12/28/2020 [facility] Specimen BLOOD ARM, LEFT PERIPHERAL [facility] LA B Description DRAW Special NONE [facility] Requests Culture NO GROWTH 5 DAYS [facility] Specimen Blood specimen (specimen) - Arm, Left Performing Organization Address [facility] Code P shane Number MAIN LAB [address] [place] [address] * (ABNORMAL) BNP POC ER (12/22/2020 6:58 PM CDT) BNP POC 1,587.0 (H) 0 - 100 PG/ML MAIN LAB Specimen Performing Organization Address [facility] Code P shane Number [facility] [address] [place] [address] * (ABNORMAL) POC CREATININE, RAD (12/22/2020 6:55 PM CDT) Creatinine, POC 1.6 (H) 0.4 - 1.00 MG/DL [facility] Specimen Performing Organization Address [facility] P shane Number [facility] [address] [place] [address] * (ABNORMAL) POC TROPONIN (12/22/2020 6:53 PM CDT) Pmqzgxzw-X-UIP 0.10 (H) 0.00 - 0.05 NG/ML MAIN LAB Specimen Performing Organization Address [facility] Code P shane Number [facility] [address] [place] [address] * PROCALCITONIN (12/22/2020 6:48 PM CDT) Procalcitonin 0.27 ng/mL MAIN LAB Comment: Suspected Lower Respiratory Tract Infection: >0.25 ng/mL-Increased likeihood bacterial infection Suspected Sepsis: >0.5 ng/mL-Increased likelihood sepsis >2.0 ng/mL-High risk of sepsis/septic shock Specimen Performing Organization Address [facility] P shane Number MAIN LAB [address] [place] [address] * (ABNORMAL) CORTISOL,RANDOM (12/22/2020 6:48 PM CDT) Cortisol, 28.3 (H) 5.0 - 20.0 MCG/DL MAIN LAB Random Specimen Performing Organization Address [facility] P shane Number MAIN LAB [address] [place] [address] * (ABNORMAL) OSMOLALITY (12/22/2020 6:48 PM CDT) Osmolality 266 (L) 280 - 307 MOSMOL/KG MAIN LA B Specimen Performing Organization Address [facility] P shane Number MAIN LAB [address] [place] [address] * LIPASE (12/22/2020 6:48 PM CDT) Lipase 15 11 - 82 U/L MAIN LAB Specimen Blood Performing Organization Address [facility] P shane Number MAIN LAB [address] [place] [address] * (ABNORMAL) AMMONIA (12/22/2020 6:48 PM CDT) Only the most recent of 2 results within the time period is included. Ammonia 64 (H) 9 - 35 MCMOL/L MAIN LAB Specimen Blood Performing Organization Address [facility] P shane Number MAIN LAB [address] [place] [address] * TELEMETRY STRIPS-SCAN (12/22/2020 12:00 AM CDT) Narrative 12/22/2020 12:00 AM CDT Ordered by an unspecified provider. * TELEMETRY STRIPS-SCAN (12/22/2020 12:00 AM CDT) Narrative 12/22/2020 12:00 AM CDT Ordered by an unspecified provider. * TELEMETRY STRIPS-SCAN (12/22/2020 12:00 AM CDT) Narrative 12/22/2020 12:00 AM CDT Ordered by an unspecified provider. * TELEMETRY STRIPS-SCAN (12/22/2020 12:00 AM CDT) Narrative 12/22/2020 12:00 AM CDT Ordered by an unspecified provider. * TELEMETRY STRIPS-SCAN (12/22/2020 12:00 AM CDT) Narrative 12/22/2020 12:00 AM CDT Ordered by an unspecified provider. * TELEMETRY STRIPS-SCAN (12/22/2020 12:00 AM CDT) Narrative 12/22/2020 12:00 AM CDT Ordered by an unspecified provider. * TELEMETRY STRIPS-SCAN (12/22/2020 12:00 AM CDT) Narrative 12/22/2020 12:00 AM CDT Ordered by an unspecified provider. * TELEMETRY STRIPS-SCAN (12/22/2020 12:00 AM CDT) Narrative 12/22/2020 12:00 AM CDT Ordered by an unspecified provider. * TELEMETRY STRIPS-SCAN (12/22/2020 12:00 AM CDT) Narrative 12/22/2020 12:00 AM CDT Ordered by an unspecified provider. * TELEMETRY STRIPS-SCAN (12/22/2020 12:00 AM CDT) Narrative 12/22/2020 12:00 AM CDT Ordered by an unspecified provider. * TELEMETRY STRIPS-SCAN (12/22/2020 12:00 AM CDT) Narrative 12/22/2020 12:00 AM CDT Ordered by an unspecified provider. * TELEMETRY STRIPS-SCAN (12/22/2020 12:00 AM CDT) Narrative 12/22/2020 12:00 AM CDT Ordered by an unspecified provider. * TELEMETRY STRIPS-SCAN (12/22/2020 12:00 AM CDT) Narrative 12/22/2020 12:00 AM CDT Ordered by an unspecified provider. * TELEMETRY STRIPS-SCAN (12/22/2020 12:00 AM CDT) Narrative 12/22/2020 12:00 AM CDT Ordered by an unspecified provider. * TELEMETRY STRIPS-SCAN (12/22/2020 12:00 AM CDT) Narrative 12/22/2020 12:00 AM CDT Ordered by an unspecified provider. * TELEMETRY STRIPS-SCAN (12/22/2020 12:00 AM CDT) Narrative 12/22/2020 12:00 AM CDT Ordered by an unspecified provider. * TELEMETRY STRIPS-SCAN (12/22/2020 12:00 AM CDT) Narrative 12/22/2020 12:00 AM CDT Ordered by an unspecified provider. * TELEMETRY STRIPS-SCAN (12/22/2020 12:00 AM CDT) Narrative 12/22/2020 12:00 AM CDT Ordered by an unspecified provider. * TELEMETRY STRIPS-SCAN (12/22/2020 12:00 AM CDT) Narrative 12/22/2020 12:00 AM CDT Ordered by an unspecified provider. * TELEMETRY STRIPS-SCAN (12/22/2020 12:00 AM CDT) Narrative 12/22/2020 12:00 AM CDT Ordered by an unspecified provider. * TELEMETRY STRIPS-SCAN (12/22/2020 12:00 AM CDT) Narrative 12/22/2020 12:00 AM CDT Ordered by an unspecified provider. * TELEMETRY STRIPS-SCAN (12/22/2020 12:00 AM CDT) Narrative 12/22/2020 12:00 AM CDT Ordered by an unspecified provider. * TELEMETRY STRIPS-SCAN (12/22/2020 12:00 AM CDT) Narrative 12/22/2020 12:00 AM CDT Ordered by an unspecified provider. * TELEMETRY STRIPS-SCAN (12/22/2020 12:00 AM CDT) Narrative 12/22/2020 12:00 AM CDT Ordered by an unspecified provider. * TELEMETRY STRIPS-SCAN (12/22/2020 12:00 AM CDT) Narrative 12/22/2020 12:00 AM CDT Ordered by an unspecified provider. * TELEMETRY STRIPS-SCAN (12/22/2020 12:00 AM CDT) Narrative 12/22/2020 12:00 AM CDT Ordered by an unspecified provider. * TELEMETRY STRIPS-SCAN (12/22/2020 12:00 AM CDT) Narrative 12/22/2020 12:00 AM CDT Ordered by an unspecified provider. * TELEMETRY STRIPS-SCAN (12/22/2020 12:00 AM CDT) Narrative 12/22/2020 12:00 AM CDT Ordered by an unspecified provider. * TELEMETRY STRIPS-SCAN (12/22/2020 12:00 AM CDT) Narrative 12/22/2020 12:00 AM CDT Ordered by an unspecified provider. * TELEMETRY STRIPS-SCAN (12/22/2020 12:00 AM CDT) Narrative 12/22/2020 12:00 AM CDT Ordered by an unspecified provider. * TELEMETRY STRIPS-SCAN (12/22/2020 12:00 AM CDT) Narrative 12/22/2020 12:00 AM CDT Ordered by an unspecified provider. * TELEMETRY STRIPS-SCAN (12/22/2020 12:00 AM CDT) Narrative 12/22/2020 12:00 AM CDT Ordered by an unspecified provider. * TELEMETRY STRIPS-SCAN (12/22/2020 12:00 AM CDT) Narrative 12/22/2020 12:00 AM CDT Ordered by an unspecified provider. * TELEMETRY STRIPS-SCAN (12/22/2020 12:00 AM CDT) Narrative 12/22/2020 12:00 AM CDT Ordered by an unspecified provider. * TELEMETRY STRIPS-SCAN (12/22/2020 12:00 AM CDT) Narrative 12/22/2020 12:00 AM CDT Ordered by an unspecified provider. * TELEMETRY STRIPS-SCAN (12/22/2020 12:00 AM CDT) Narrative 12/22/2020 12:00 AM CDT Ordered by an unspecified provider. * TELEMETRY STRIPS-SCAN (12/22/2020 12:00 AM CDT) Narrative 12/22/2020 12:00 AM CDT Ordered by an unspecified provider. * ECG-SCAN (12/22/2020 12:00 AM CDT) Narrative 12/22/2020 12:00 AM CDT Ordered by an unspecified provider. * ECG-SCAN (12/22/2020 12:00 AM CDT) Narrative 12/22/2020 12:00 AM CDT Ordered by an unspecified provider. from Last 3 Months Insurance Type Payer Benefit Subscriber ID Effective Phone Address Plan / Dates Group Medicare MEDICARE MEDICARE [id number] 1999- [phone] [address] AND Present [address] [place] [address] [place] [id number] 2020-P [phone] PO [address] x MEDICAID resent [id number] [place] [id number] [facility] [id number] 11/13/2020- [address] [facility] /NURSING [facility] HOME MICHELLE PEREIRA [id number] Advance Directives Patient Glaciologist Explanation Type Date Recorded Advance 10/26/2020 12:00 AM Directive/DPOA Advance 10/20/2020 11:41 AM Directive/DPOA Date Inactivated Comments Code Status Date Activated 2021 2:22 PM Full Code 01/02/2021 1:21 PM Provider has discussed Code Status Yes w/Patient or Family? 12/30/2020 11:32 PM Full Code 12/22/2020 9:39 PM Provider has discussed Code Status No, more discussi on w/Patient or Family? needed 12/04/2020 1:17 PM Full Code 11/29/2020 7:00 PM Provider has discussed Code Status Yes w/Patient or Family? 11/29/2020 6:59 PM Full Code 11/29/2020 3:32 PM Provider has discussed Code Status No, more discussi on w/Patient or Family? needed 11/15/2020 7:32 PM Full Code 11/04/2020 7:35 PM Provider has discussed Code Status Yes w/Patient or Family? Care Teams Start Date End Date Senior Research Scientist Relationship Specialty 05/15/20 Garfield Gray MD PCP - General [address] Medicine [place], [place] [address] 06/13/20 Riley Hopson MD Consulting Cardiovascul [address] Physician ar Disease [address] [place], [place] [address] 12/20/20 Gino Pandya, TELEVISION REPAIRMAN-HEADLINER INSTALLER Nurse Nurse [address] [facility] [id number] , [place] [address] 01/19/21 Teri Brandon Continuum of Care Case Management
--- OUTSIDE RECORDS SUMMARY | 2021-03-11 12:16 | XMS REPORT | Encounter Summary ---
Author Author [facility] Organization [facility] Address Unknown Phone Unavailable Care Team Providers Care Hog Dropper Name Role Phone Self, Garfield OLVERA PCP Riley Hopson MD [phone] Gino Pandya JET AIRCRAFT SERVICER-CLINICAL ATHLETIC INSTRUCTOR [phone] Teri Brandon [phone] Unavailable Reason for Referral * Radiology Services (Routine) - Authorized Diagnoses / Procedures Referred By Contact Referred To Conta ct Specialty Diagnoses Chronic heart failure with preserved ejection fraction (HCC) RVF (right ventricular failure) (HCC) Other cirrhosis of liver (HCC) Procedures IR PARACENTESIS THERAPEUTIC Carlos Longo MD [address] [address] [address] [place] [address] [place] [address] Radiology Referral ID Status Reason Start Date Expiration Visits Vi sits Date Requested Authorized [id number] Authorized 01/22/2021 01/22/2022 20 20 Y LEVEL ADMINISTRATIVE ASSISTANT Reason for Visit * Radiology Services (Routine) - Authorized Diagnoses / Procedures Referred By Contact Referred To Conta ct Specialty Diagnoses Chronic heart failure with preserved ejection fraction (HCC) RVF (right ventricular failure) (HCC) Other cirrhosis of liver (HCC) Procedures IR PARACENTESIS THERAPEUTIC Carlos Longo MD [address] [place] [address] [facility] [place] [address] [place] [address] Radiology Referral ID Status Reason Start Date Expiration Visits Vi sits Date Requested Authorized [id number] Authorized 01/22/2021 01/22/2022 20 20 Encounter Details Care Team Description Date Type Department Karsten Griffiths MD [facility] [phone] Priya Becker, RT(R)(),LRT Alondra Augustin RN Chronic heart failure with preserved eje ction fraction (HCC) 03/08/2021 Hospital Interventional Radi ology: Encounter Maritza Oviedo [facility] [address] [place] [address] Social History Date Tobacco Use Types Packs/Day Years Used Never Smoker Smokeless Tobacco: Never Used Comments Alcohol Use Standard Drinks/Week Not Currently 0 (1 standard drink = 0.6 o z pure alcohol) Sex Assigned at Date Recorded Female 06/01/2020 1:44 PM ENTRY LEVEL ADMINISTRATIVE ASSISTANT Date Recorded COVID-19 Exposure Response 03/08/2021 7:56 AM ENTRY LEVEL ADMINISTRATIVE ASSISTANT In the last month, have you been in contact with No / Unsure someone who was confirmed or suspected to have Coronavirus / COVID-19? documented as of this encounter Last Filed Vital Signs Reading Time Taken Comments Vital Sign 103/57 03/08/2021 8:58 AM ENTRY LEVEL ADMINISTRATIVE ASSISTANT Blood Pressure - - Pulse 36.9 C (98.4 F) 03/08/2021 8:00 AM ENTRY LEVEL ADMINISTRATIVE ASSISTANT Temperature - - Respiratory Rate 96% 03/08/2021 8:58 AM ENTRY LEVEL ADMINISTRATIVE ASSISTANT Oxygen Saturation - - Inhaled Oxygen Concentration - - Weight - - Height - - Body Mass Index documented in this encounter Functional Status Date of Assessment Functional Status Response 02/06/2021 Does the patient have a hearing impairment: No 02/06/2021 Does the patient have a visual impairment: Yes 02/06/2021 Does the patient have impaired ambulation: Yes 02/06/2021 Does the patient have an activity of daily living No (ADL) impairment: 02/06/2021 Does the patient have an instrumental activity of No daily living (IADL) impairment: Date of Assessment Cognitive Status Response 02/06/2021 Does the patient have a cognitive impairment: No documented as of this encounter Medications at Time of Discharge Start Date End Date Medication Sig Dispensed Refills ascorbic acid (VITAMIN C) Take 500 mg 0 500 mg tablet by mouth daily. 02/06/2021 02/01/2022 bumetanide (BUMEX) 1 mg Take five 900 tablet 3 tablet tablets by mouth twice daily for 360 days. calcium carbonate Take 1,250 mg 0 (OS-KRUPA) 1250 mg tablet by mouth daily. 02/06/2021 empagliflozin (JARDIANCE) Take one 90 tablet 3 10 mg tablet tablet by mouth daily. 2021 ferrous gluconate Take one 90 tablet 1 (FERGON) 240 mg (27 mg tablet by iron) tablet mouth daily. fluticasone propionate Apply to 0 (FLONASE) 50 each nostril mcg/actuation nasal as directed spray, suspension daily. Shake bottle gently before using. 11/15/2020 hyoscyamine (ANASPAZ) Place one 180 tablet 0 0.125 mg rapid dissolve tablet under tablet tongue every 4 hours as needed. levothyroxine (SYNTHROID) Take 75 mcg 0 75 mcg tablet by mouth daily 30 minutes before breakfast. 2021 midodrine (PROAMATINE) 5 Take three 270 tablet 3 mg tablet tablets by mouth three times daily. MULTIVITAMIN PO Take 1 tablet 0 by mouth daily. 02/12/2021 oxybutynin chloride Take one 180 tablet 0 (DITROPAN) 5 mg tablet tablet by mouth daily. pantoprazole DR Take 40 mg by 0 (PROTONIX) 40 mg tablet mouth twice daily. 12/04/2020 sertraline (ZOLOFT) 100 Take one 180 tablet 0 mg tablet tablet by mouth twice daily. 02/21/2021 spironolactone Take three 540 tablet 3 (ALDACTONE) 25 mg tablet tablets by mouth twice daily. Take with food. 03/22/2020 VASCEPA 1 gram capsule TAKE 2 0 CAPSULES BY MOUTH TWICE DAILY WITH MEALS 12/30/2020 warfarin (COUMADIN) 1 mg Take two 120 tablet 0 tablet tablets by mouth daily. documented as of this encounter Discharge Disposition Code Departure Means Destination Disposition Car Home or Self Care documented in this encounter Progress Notes * Brigitte Hinojosa RN - 03/08/2021 9:00 AM ENTRY LEVEL ADMINISTRATIVE ASSISTANT Interventional Radiology Outpatient Scheduling Checklist 1. Name of Procedure(s): Paracentesis 2. Date of Procedure: 03/08/21 3. Arrival Time: 0800 4. Procedure Time: 0900 5. Correct Procedural Room Assignment: [facility] 6. Blood Thinners Triaged and instructed per protocol: Y/N/NA: Yes. Pt is t aking Warfarin and was instructed to continue taking per protocol. Confirmed accurate instructions sent to patient: Y/N: NA 7. Procedure Order Verified: Y/N: Yes 9. Patient instructed to have a dumpcart driver: Y/N/NA: Yes 10. Patient instructed on [...] Patient was sent electronic procedure instructions: Y/N: No; refused mychar t Y LEVEL ADMINISTRATIVE ASSISTANT documented in this encounter H&P Notes * Karsten Griffiths MD - 03/08/2021 7:51 AM ENTRY LEVEL ADMINISTRATIVE ASSISTANT Pre Procedure History and Physical/Sedation Plan-OP Procedure Date: 03/08/2021 Planned Procedure(s): Para Indication: ascites Chief Complaint: above History of Present Illness: Zaria Paulson is a 61 y.o. female. Patient Active Problem List Diagnosis Date Noted Fall 2021 Acute kidney injury superimposed on CKD ([facility]) 01/02/2021 Severe malnutrition ([facility]) 12/27/2020 Severe sepsis ([facility]) 12/22/2020 Acute on chronic diastolic (congestive) heart failure ([facility]) 12/10/2020 RVF (right ventricular failure) ([facility]) 11/30/2020 Hyponatremia 11/30/2020 Acute on chronic heart failure ([facility]) 11/29/2020 Hematoma of left flank 11/15/2020 Hematoma of right flank 11/15/2020 Hematuria 11/15/2020 Nontraumatic rectus hematoma 11/04/2020 Hypoalbuminemia 10/23/2020 LEONORA (acute kidney injury) ([facility]) 10/21/2020 GI bleeding 10/20/2020 Cirrhosis ([facility]) 09/07/2020 Non-ischemic cardiomyopathy (HCC) 09/07/2020 Paroxysmal atrial fibrillation (HCC) 09/07/2020 Stage 3b chronic kidney disease (HCC) 09/07/2020 Atrial tachycardia ([facility]) 09/07/2020 Iron deficiency anemia 08/03/2020 [...] 06/06/2020 Performed by Bao Hernández MD at [facility] COLONOSCOPY DIAGNOSTIC WITH SPECIMEN COLLECTION BY BRUSHING/ WASHING - FLEXI BLE N/A 06/06/2020 Performed by Bao Hernández MD at [facility] ANGIOGRAPHY CORONARY ARTERY WITH RIGHT AND LEFT HEART CATHETERIZATION N/A Performed by Higinio Clarke MD at [facility] POSSIBLE PERCUTANEOUS CORONARY STENT PLACEMENT WITH ANGIOPLASTY N/A Performed by Higinio Clarke MD at [facility] ESOPHAGOGASTRODUODENOSCOPY WITH SPECIMEN COLLECTION BY BRUSHING/ WASHING N/A 10/21/2020 Performed by Cosmo Gomez MD at [facility] SIGMOIDOSCOPY WITH CONTROL OF BLEEDING - FLEXIBLE N/A 10/21/2020 Performed by Cosmo Gomez MD at [facility] SIGMOIDOSCOPY WITH DIRECTED SUBMUCOSAL INJECTION - FLEXIBLE 10/21/2020 Performed by Cosmo Gomez MD at [facility] ESOPHAGOGASTRODUODENOSCOPY WITH CONTROL OF BLEEDING - FLEXIBLE N/A Performed by Bao Hernández MD at [facility] Medications Prior to Admission Medication Sig Dispense Refill Last Dose ascorbic acid (VITAMIN C) 500 mg tablet Take 500 mg by mouth daily. bumetanide (BUMEX) 1 mg tablet Take five tablets by mouth twice daily for 36 0 days. 900 tablet 3 calcium carbonate (OS-KRUPA) 1250 mg tablet Take 1,250 mg by mouth daily. empagliflozin (JARDIANCE) 10 mg tablet Take one tablet by mouth daily. 90 ta blet 3 ferrous gluconate (FERGON) 240 mg (27 mg iron) tablet Take one tablet by devin th daily. 90 tablet 1 fluticasone propionate (FLONASE) 50 mcg/actuation nasal spray, suspension Ap ply to each nostril as directed daily. Shake bottle gently before using. hyoscyamine (ANASPAZ) 0.125 mg rapid dissolve tablet Place one tablet under tongue every 4 hours as needed. 180 tablet 0 levothyroxine (SYNTHROID) 75 mcg tablet Take 75 mcg by mouth daily 30 minute s before breakfast. midodrine (PROAMATINE) 5 mg tablet Take three tablets by mouth three times d aily. 270 tablet 3 MULTIVITAMIN PO Take 1 tablet by mouth daily. oxybutynin chloride (DITROPAN) 5 mg tablet Take one tablet by mouth daily. ( Patient taking differently: Take 5 mg by mouth three times daily.) [address] (PROTONIX) 40 mg tablet Take 40 mg by mouth twice daily. sertraline (ZOLOFT) 100 mg tablet Take one tablet by mouth twice daily. 180 tablet 0 spironolactone (ALDACTONE) 25 mg tablet Take three tablets by mouth twice da [place]. Take with food. 540 tablet 3 VASCEPA 1 gram capsule TAKE [...] of Onset COPD Mother Review of Systems Review of systems not obtained due to patient factors. Previous Anesthetic/Sedation History: Physical Exam: Vital Signs: Last Filed In 24 Hours Vital Signs: 24 Hour Range General appearance: alert Neurologic: Grossly normal Lungs: clear to auscultation bilaterally Heart: regular rate and rhythm, S1, S2 normal, no murmur, click, rub or gallop Abdomen: soft, non-tender. Bowel sounds normal. No masses, no organomegaly Extremities: extremities normal, atraumatic, no cyanosis or edema Airway: airway assessment performed Mallampati II (soft palate, uvula, fauces visible) Anesthesia Classification: ASA II (A normal patient with mild systemic disease) Mallampati: Sedation/Medication Plan: Other Discussion/Reviews: Physician has discussed risks and alternatives of this type of sedation and above planned procedures with patient Lab/Radiology/Other Diagnostic Tests: Labs: No pertinent labs Karsten Griffiths MD Pager Y LEVEL ADMINISTRATIVE ASSISTANT documented in this encounter Procedure Notes * Karsten Griffiths MD - 03/08/2021 8:19 AM ENTRY LEVEL ADMINISTRATIVE ASSISTANT Immediate Post Procedure Note Date: 03/08/2021 Attending Physician: Sussy Griffiths Ring Cutter Lathe Operator(s): Priya Procedure(s): para Indications: ascites Findings: above Anesthesia: Local 5 mL 1% lidocaine without epinephrine Sedation/Medication Plan: Other Time out performed: Consent obtained, correct patient verified, correct procedur e verified, correct site verified, patient marked as necessary. Estimated Blood Loss: None/Negligible Specimen(s) Removed/Disposition: None Complications: None Comments: Karsten Griffiths MD Y LEVEL ADMINISTRATIVE ASSISTANT documented in this encounter Miscellaneous Notes * Patient Education - Brigitte Hinojosa RN - 03/08/2021 9:00 AM ENTRY LEVEL ADMINISTRATIVE ASSISTANT Dear Ms. Paulson, Thank you for choosing [facility] Interventional Rad iology for your procedure. Your appointment information is listed below: Appointment Date: 03/08/21 Appointment Time: 9:00 AM Arrival Time: 8:00 AM Location: [facility]: [address] [place] [address] Parking: available in the front of the building INTERVENTIONAL RADIOLOGY PRE-PROCEDURE INSTRUCTIONS LOCAL You are scheduled for a procedure in Interventional Radiology. [facility] and any direction from your [...] your care and activities after the procedure. Y LEVEL ADMINISTRATIVE ASSISTANT * Patient Instructions - Kassandra Harmon RN - 03/08/2021 7:45 AM ENTRY LEVEL ADMINISTRATIVE ASSISTANT Images from the original note were not [...] A responsible adult must drive you home. It is recommended that a responsible adult [...] resume your previous diet after the procedure. CALL THE DOCTOR IF: Bright red blood [...] to the procedu re performed at the [facility] Location, call [phone] Friday-Friday from 7 -5p. After-hours and weekends, please call [phone] and ask for the [facility] Filter Tank Tender Helper on-call. You or your caregiver should call 911 for any severe symptoms such as excessive bleeding, severe dizziness, trouble breathing or loss of consciousness. Y LEVEL ADMINISTRATIVE ASSISTANT documented in this encounter Plan of Treatment Care Team Description Date Type Specialty Carlos Longo MD [address] [facility] [place] [address] [place] [address] [place] [phone] 03/22/2021 [facility] Radiology [place]counter [place] Al[place] [address] [place] [phone] Nonrheumatic tricuspid valve regurgitati on 03/27/2021 Hospital Cardiology [place] [address], [address] [place] [phone] CATHETERIZATION RIGHT HEART 03/27/2021 Surgery Cardiology Date/Time Name Priority Associated Diagnose s 03/27/2021 9:05 AM ENTRY LEVEL ADMINISTRATIVE ASSISTANT CATHETERIZATION RIGHT HEART Nonrheumatic tricuspid valve regurgitation documented as of this encounter Goals Goal Patient Associated Recent Progress Patient-Stat Aut hor Goal Type Problems ed? Improve [facility] On track (10/23/2020 Yes Sheldon, 1:06 PM CDT) CHRYSTAL Singh [facility] On track (12/25/2020 Yes Sheldon, 2:41 PM CDT) CHRYSTAL Singh Note: "To get better and stronger." documented as of this encounter Procedures Comments Procedure Name Priority Date/Time Associated Diag nosis IR PARACENTESIS Routine 03/08/2021 Chronic heart failure THERAPEUTIC 8:32 AM ENTRY LEVEL ADMINISTRATIVE ASSISTANT with preserved ejec tion fraction (HCC) RVF (right ventricular failure) (HCC) Other cirrhosis of liver (HCC) documented in this encounter Results * IR PARACENTESIS THERAPEUTIC (03/08/2021 8:32 AM ENTRY LEVEL ADMINISTRATIVE ASSISTANT) Modality Anatomical Region Laterality Ultrasound Specimen Impressions [facility] RESULTS - 03/08/2021 11:35 AM ENTRY LEVEL ADMINISTRATIVE ASSISTANT IMPRESSION: Ultrasound guided paracentesis with removal of 1.9 liters of fluid. IKarsten M.D., the attending radiologist, was present for the procedure, personally reviewed the images, and formulated the interpretations and opinions expressed in this report. @TT Finalized by Karsten Griffiths M.D. on 03/08/2021 11:35 AM. Dictated by Karsten Griffiths M.D. on 03/08/2021 11:35 AM. Narrative [facility] RAD RESULTS - 03/08/2021 11:35 AM ENTRY LEVEL ADMINISTRATIVE ASSISTANT Exam: Ultrasound-guided paracentesis. History: Ascites. Technique: After obtaining informed written consent the patient was placed supine on the procedure table. Using ultrasound guidance, an appropriate insertion site in the right lower quadrant was marked. The patient was prepped and draped in the usual sterile fashion. Lidocaine was used for local anesthesia. A [id number] needle was inserted into the abdomen, with [...] Lidocaine was used for local anesthesia. A [id number]-[id number] needle was inserted into the abdomen, with [...] Code P shane Number [facility] RAD RESULTS documented in this encounter Visit Diagnoses Diagnosis Chronic heart failure with preserved ej ection fraction (HCC) RVF (right ventricular failure) (HCC) Congestive heart failure, unspecified Other cirrhosis of liver (HCC) Nonrheumatic tricuspid valve regurgitat ion Tricuspid valve disorders, specified as nonrheumatic documented in this encounter Administered Medications Action Date Dose Rate Site Medication Order MAR Action 03/08/2021 8:22 AM ENTRY LEVEL ADMINISTRATIVE ASSISTANT 12.5 g albumin 25% injection Given - New INTRA-PROCEDURE MED(CONT), Starting on Bag Toya 03/08/21 at 0822, Until Toya 1 at 0822 documented in this encounter Active and Recently Administered Medications Times are shown in ENTRY LEVEL ADMINISTRATIVE ASSISTANT. 03/07/2021 03/08/2021 Medication Order 03/06/2021 0822 (Given - New Bag - Provider: Alondra kwon RN) albumin 25% injection (COMPLETED) INTRA-PROCEDURE MED(CONT), Starting on Toya 03/08/21 at 0822, Until Toya 1 at 0822 documented in this encounter Orders First Ordered Date Medications Ordered That Might Not Have Count Last Ordered Date Been Administered albumin 25% injection 1 03/08/2021 documented in this encounter Additional Health Concerns Noted Time Assessment 03/08/2021 8:00 AM ENTRY LEVEL ADMINISTRATIVE ASSISTANT A fall risk assessment has been complet ed for the patient 12/07/2020 3:18 PM CDT PHQ-2 Depression Total Score: 2 documented as of this encounter Care Teams Start Date End Date Hog Dropper Relationship Specialty 05/15/20 Garfield Gray MD PCP - [address] [address] 06/13/20 Riley Hopson MD Consulting Cardiovascul [address] Physician ar Disease [address] [place] [address], [place] [address] 12/20/20 Gino Pandya, JET AIRCRAFT SERVICER-CLINICAL ATHLETIC INSTRUCTOR Nurse Nurse [address] [place] [address] 01/19/21 Teri Brandon Continuum of Care Case Management documented as of this encounter
--- OUTSIDE RECORDS SUMMARY | 2021-03-11 12:16 | XMS REPORT | Encounter Summary ---
Author Author [facility] Organization [facility] Address Unknown Phone Unavailable Care Team Providers Care Spiritual Counselor Name Role Phone Self, Garfield OLVERA PCP Riley Hopson MD [phone] Gino Pandya BEAN PICKER MACHINE OPERATOR-POT SANDER [phone] Teri Brandon [phone] Unavailable Encounter Details Care Team Description Date Type Department 03/08/2021 Travel Social History Date Tobacco Use Types Packs/Day Years Used Never Smoker Smokeless Tobacco: Never Used Comments Alcohol Use Standard Drinks/Week Not Currently 0 (1 standard drink = 0.6 o z pure alcohol) Sex Assigned at Date Recorded Female 06/01/2020 1:44 PM RN RELIEF CHARGE Date Recorded COVID-19 Exposure Response 03/08/2021 7:56 AM RN RELIEF CHARGE In the last month, have you been [...] as of this encounter Plan of Treatment Care Team Description Date Type Specialty Carlos Longo MD 4000 [facility] [place] [address] [place] [address], [address] [place] [phone] 03/22/2021 Hospital Radiology [place] Almaraz [place] [address], [address] [place] [phone] Nonrheumatic tricuspid valve regurgitati on 03/27/2021 Hospital Cardiology Encounter Jacob Almaraz MD [address], [address] [place] [phone] CATHETERIZATION RIGHT HEART 03/27/2021 Surgery Cardiology Date/Time Name Priority Associated Diagnose s 03/27/2021 9:05 AM RN RELIEF CHARGE CATHETERIZATION RIGHT HEART Nonrheumatic tricuspid valve regurgitation documented as of this encounter Goals Goal Patient Associated Recent Progress Patient-Stat Aut hor Goal Type Problems ed? Improve [facility] On track (10/23/2020 Yes Sheldon, 1:06 PM CDT) CHRYSTAL Singh [facility] On track (12/25/2020 Yes Sheldon, 2:41 PM CDT) CHRYSTAL Singh Note: "To get better and stronger." documented as of this encounter Visit Diagnoses Not on filedocumented in this encounter Additional Health Concerns Noted Time Assessment 03/08/2021 8:00 AM RN RELIEF CHARGE A fall risk assessment has been complet ed for the patient 12/07/2020 3:18 PM CDT PHQ-2 Depression Total Score: 2 documented as of this encounter Care Teams Start Date End Date Spiritual Counselor Relationship Specialty 05/15/20 Garfield Gray MD PCP - General [address] [place] [address] 06/13/20 Riley Hopson MD Consulting Cardiovascul [address] Physician ar Disease [address] [place] [address] 12/20/20 Gino Pandya, BEAN PICKER MACHINE OPERATOR-POT SANDER Nurse Nurse [address] [place] [address] 01/19/21 Teri rBandon Continuum of Care Case Management documented as of this encounter
--- OUTSIDE RECORDS SUMMARY | 2021-03-11 12:16 | XMS REPORT | Encounter Summary ---
Author Author [facility] Organization [facility] Address Unknown Phone Unavailable Care Team Providers Care Stripping Shovel Operator Name Role Phone Self, Garfield OLVERA PCP Riley Hopson MD [phone] Gino Pandya APRN-HEALTH INSURANCE ASSESSOR [phone] Teri Brandon [phone] Unavailable Reason for Visit * Reason Comments Labs Only Encounter Details Care Team Description Date Type Department Kathryn Barbosa MA Labs Only 03/07/2021 Documentation Cardiology: [facility] [address] [place] [address] 1, [address] [place] [address] Social History Date Tobacco Use Types Packs/Day Years Used Never Smoker Smokeless Tobacco: Never Used Comments Alcohol Use Standard Drinks/Week Not Currently 0 (1 standard drink = 0.6 o z pure alcohol) Sex Assigned at Date Recorded Female 06/01/2020 1:44 PM SCIENTIFIC PUBLICATIONS EDITOR Date Recorded COVID-19 Exposure Response 03/05/2021 8:08 AM SCIENTIFIC PUBLICATIONS EDITOR In the last month, have you been [...] Date Type Specialty Carlos Longo MD 4000 [facility] OPN754 [place], [place] [id number] [place] [address], [address] [place] [phone] 03/22/2021 Hospital Radiology [place] [address], [address] [place] [phone] Nonrheumatic tricuspid valve regurgitati on 03/27/2021 Hospital Cardiology [place] [address], [address] [place] [phone] CATHETERIZATION RIGHT HEART 03/27/2021 Surgery Cardiology Date/Time Name Priority Associated Diagnose s 03/27/2021 9:05 AM SCIENTIFIC PUBLICATIONS EDITOR CATHETERIZATION RIGHT HEART Nonrheumatic tricuspid valve regurgitation documented as of this encounter Goals Goal Patient Associated Recent Progress Patient-Stat Aut hor Goal Type Problems ed? Improve [facility] On track (10/23/2020 Yes Sheldon, 1:06 PM CDT) CHRYSTAL Singh [facility] On track (12/25/2020 Yes Sheldon, 2:41 PM CDT) CHRYSTAL Singh Note: "To get better and stronger." documented as of this encounter Procedures Comments Procedure Name Priority Date/Time Associated Diag nosis PROTIME INR (PT) Routine 03/07/2021 Chronic heart failure with preserved ejection fraction (HCC) documented in this encounter Results * PROTIME INR (PT) (03/07/2021) INR 2.2 [facility] Specimen Blood - Blood Narrative Performing Organization Address City/State/ZIP Code P shane Number [facility] [address] [place] [address] documented in this encounter Visit Diagnoses Diagnosis Chronic heart failure with preserved ej ection fraction (HCC) Nonrheumatic tricuspid valve regurgitat ion Tricuspid valve disorders, specified as nonrheumatic documented in this encounter Additional Health Concerns Noted Time Assessment 03/05/2021 8:16 AM SCIENTIFIC PUBLICATIONS EDITOR A fall risk assessment has been complet ed for the patient 12/07/2020 3:18 PM CDT PHQ-2 Depression Total Score: 2 documented as of this encounter Care Teams Start Date End Date Stripping Shovel Operator Relationship Specialty 05/15/20 Garfield Gray MD PCP - [address] [phone] 06/13/20 Riley Hopson MD Consulting Cardiovascul [address] [place] [address] Physician ar Disease [address] [place], [place] [address] 12/20/20 Gino Pandya, CELLAR HAND-HEALTH INSURANCE ASSESSOR Nurse Nurse 4000 [facility] Practitioner [facility] [place] [address] 01/19/21 Teri Brandon Continuum of Care Case Management documented as of this encounter
--- OUTSIDE RECORDS SUMMARY | 2021-03-11 12:17 | XMS REPORT | Encounter Summary ---
Author Author [facility] Organization [facility] Address Unknown Phone Unavailable Care Team Providers Care Assistant Professor Of Biology Name Role Phone Self, Garfield OLVERA PCP Riley Hopson MD [phone] Gino Pandya APRN-FLAT SPRING ASSEMBLER [phone] Teri Brandon [phone] Unavailable Reason for Referral * Consult, Test & Treat (Routine) - Authorized Diagnoses / Procedures Referred By [facility] Severe tricuspid regurgitation Carlos Longo MD 4000 [facility] [place] [address] [facility] 4000 [facility] [place] [address] Cardiothoracic Surgery Referral ID Status Reason Start Date Expiration Visits Vi sits Date Requested Authorized [id number] Authorized Specialty Services 02/22/2021 02/22/2022 1 1 Required Comments TR/Triluminate eval. CE MANAGER EXECUTIVE ASSISTANT Reason for Visit * Reason Comments Navigation Assessment TR/Triluminate evaluation Encounter Details Care Team Description Date Type Department Aarti Mars RN Navigation Assessment (TR/Triluminate ev aluation) 02/22/2021 Patient Profile Cardiology: [facility] 4000 [facility], [address] [place] [address] Social History Date Tobacco Use Types Packs/Day Years Used Never Smoker Smokeless Tobacco: Never Used Comments Alcohol Use Standard Drinks/Week Not Currently 0 (1 standard drink = 0.6 o z pure alcohol) Sex Assigned at Date Recorded Female 06/01/2020 1:44 PM OFFICE MANAGER EXECUTIVE ASSISTANT Date Recorded COVID-19 Exposure Response 02/19/2021 7:52 AM OFFICE MANAGER EXECUTIVE ASSISTANT In the last month, have you [...] Date Type Specialty Carlos Longo MD [address] [address] [place] [address], [address] [place] [phone] 03/22/2021 Hospital Radiology [place]counter [place] [address], [address] [place] [address] Nonrheumatic tricuspid valve regurgitati on 03/27/2021 Hospital Cardiology [place] [address], [address] [place] [phone] CATHETERIZATION RIGHT HEART 03/27/2021 Surgery Cardiology Date/Time Name Priority Associated Diagnose s 03/27/2021 9:05 AM OFFICE MANAGER EXECUTIVE ASSISTANT CATHETERIZATION RIGHT HEART Nonrheumatic tricuspid valve regurgitation Order Schedule Name Type Priority Associated Diag noses Ordered: 02/22/2021 AMB REFERRAL TO Outpatient Routine Severe tricusp id CARDIOTHORACIC SURGEON Referral regurgitation documented as of this encounter Goals Goal Patient Associated Recent Progress Patient-Stat Aut hor Goal Type Problems ed? Improve [facility] On track (10/23/2020 Yes Sheldon, 1:06 PM CDT) CHRYSTAL Singh [facility] On track (12/25/2020 Yes Sheldon, 2:41 PM CDT) CHRYSTAL Singh Note: "To get better and stronger." documented as of this encounter Visit Diagnoses Diagnosis Severe tricuspid regurgitation - Primar y Diseases of tricuspid valve Nonrheumatic tricuspid valve regurgitat ion Tricuspid valve disorders, specified as nonrheumatic documented in this encounter Additional Health Concerns Noted Time Assessment 02/19/2021 8:13 AM OFFICE MANAGER EXECUTIVE ASSISTANT A fall risk assessment has been complet ed for the patient 12/07/2020 3:18 PM CDT PHQ-2 Depression Total Score: 2 documented as of this encounter Care Teams Start Date End Date Assistant Professor Of Biology Relationship Specialty 05/15/20 Garfield Gray MD PCP - [address] [id number] 06/13/20 Riley Hopson MD Consulting Cardiovascul [address] [place] [address] Physician ar Disease [address] [place], [place] [address] 12/20/20 Gino Pandya, DRIVERS' CASH CLERK-FLAT SPRING ASSEMBLER Nurse Nurse [address] [address] 01/19/21 Teri Brandon Continuum of Care Case Management documented as of this encounter
--- OUTSIDE RECORDS SUMMARY | 2021-03-11 12:17 | XMS REPORT | Encounter Summary ---
Author Author [facility] Organization [facility] Address Unknown Phone Unavailable Care Team Providers Care Bariatric Nurse Name Role Phone Self, Garfield OLVERA PCP Riley Hopson MD [phone] Gino Pandya APRN-THERMAL CUTTER HAND [phone] Teri Brandon [phone] Unavailable Encounter Details Care Team Description Date Type Department Fernie Camargo LPN 02/20/2021 Telephone Cardiology: [facility] [address] [place] [address] 1, [address] [place] [address] Social History Date Tobacco Use Types Packs/Day Years Used Never Smoker Smokeless Tobacco: Never Used Comments Alcohol Use Standard Drinks/Week Not Currently 0 (1 standard drink = 0.6 o z pure alcohol) Sex Assigned at Date Recorded Female 06/01/2020 1:44 PM BLOOD BANK ASSISTANT Date Recorded COVID-19 Exposure Response 02/19/2021 7:52 AM BLOOD BANK ASSISTANT In the last month, have you [...] Miscellaneous Notes * Telephone Encounter - Helen Waggoner, CHRYSTAL - 02/20/2021 3:40 PM BLOOD BANK ASSISTANT Called patient to follow up on previous call. Informed her lab work is currently not needed after her tele-health visit yesterday 02/[address] Longo. Informed her next INR should be checked on Friday, 02/26. Pt verbalized understanding. Called pt's HHRNLion, informed of the plan. Aware of next INR check. No quest ions at this time. D BANK ASSISTANT * Telephone Encounter - Fernie Camargo LPN - 02/20/2021 2:48 PM BLOOD BANK ASSISTANT HHRN Alexis called from [phone] reporting that pt was asking about labs. HHR N does not currently have any lab orders for pt and asks when next INR should be drawn (was done yesterday). D BANK ASSISTANT documented in this encounter Plan of Treatment Care Team Description Date Type Specialty Carlos Longo MD 4000 [facility]600 [place] [address] [place] [address], [address] [place] [phone] 03/22/2021 Hospital Radiology Encounter Jacob Almaraz [place] [address], [address] [place] [address] Nonrheumatic tricuspid valve regurgitati on 03/27/2021 Hospital Cardiology Encounter Jacob Almaraz MD [address], [address] [place] [phone] CATHETERIZATION RIGHT HEART 03/27/2021 Surgery Cardiology Date/Time Name Priority Associated Diagnose s 03/27/2021 9:05 AM BLOOD BANK ASSISTANT CATHETERIZATION RIGHT HEART Nonrheumatic tricuspid valve regurgitation documented as of this encounter Goals Goal Patient Associated Recent Progress Patient-Stat Aut hor Goal Type Problems ed? Improve [facility] On track (10/23/2020 Yes Sheldon, 1:06 PM CDT) CHRYSTAL Singh Improve [facility] On track (12/25/2020 Yes Sheldon, 2:41 PM CDT) CHRYSTAL Singh Note: "To get better and stronger." documented as of this encounter Visit Diagnoses Not on filedocumented in this encounter Additional Health Concerns Noted Time Assessment 02/19/2021 8:13 AM BLOOD BANK ASSISTANT A fall risk assessment has been complet ed for the patient 12/07/2020 3:18 PM CDT PHQ-2 Depression Total Score: 2 documented as of this encounter Care Teams Start Date End Date Bariatric Nurse Relationship Specialty 05/15/20 Garfield Gray MD PCP - [address] [address] 06/13/20 Riley Hopson MD Consulting Cardiovascul [address] [place] [address] Physician [address] Disease [address] [place], [place] [address] 12/20/20 Gino Pandya, PLUMBER CUB-THERMAL CUTTER HAND Nurse Nurse [address] [place] [address] 01/19/21 Teri Brandon Continuum of Care Case Management documented as of this encounter
--- OUTSIDE RECORDS SUMMARY | 2021-03-11 12:17 | XMS REPORT | Encounter Summary ---
Author Author [facility] Organization [facility] Address Unknown Phone Unavailable Care Team Providers Care Wafer Batter Mixer Name Role Phone Self, Garfield OLVERA PCP Riley Hopson MD [phone] Gino Pandya GUEST SERVICES-LOADER HELPER [phone] Teri Brandon [phone] Unavailable Reason for Visit * Reason Onset Date Comments Other 02/06/2021 CT Encounter Details Care Team Description Date Type Department Allison Marti MD 4000 [facility] QC[address]893 [place] [address] Other (CT) 02/06/2021 Telephone Hepatology: Main [facility], [facility] 4000 [facility] [address], [address] [place] [address] Social History Date Tobacco Use Types Packs/Day Years Used Never Smoker Smokeless Tobacco: Never Used Comments Alcohol Use Standard Drinks/Week Not Currently 0 (1 standard drink = 0.6 o z pure alcohol) Sex Assigned at Date Recorded Female 06/01/2020 1:44 PM RN ON SITE Date Recorded COVID-19 Exposure Response 02/19/2021 7:52 AM RN ON SITE In the last month, have you been [...] encounter Miscellaneous Notes * Telephone Encounter - Kathy Betancourt RN - 02/27/2021 4:52 PM RN ON SITE spoke to patient. Patient reports balance issues over the last 2 weeks. Patient reports increased fatigue and home stress. Patient had TH visit with Dr. Longo. Patient will have repeat echo completed per their clinic visit. Patient has f/u visit in May with coordinating imaging. lab orders placed for completion. Debra ent v/u. ON SITE * Telephone Encounter - Gill Maya - 02/06/2021 10:22 AM RN ON SITE Call from Zaria Cano regarding CT appointment. Please return her call. ON SITE documented in this encounter Plan of Treatment Care Team Description Date Type Specialty Carlos Longo MD 4000 [facility]600 [place] [address] [place] [address], [address] [place] [phone] 03/22/2021 Hospital Radiology Encounter Jacob Almaraz MD [address], [address] [place] [address] Nonrheumatic tricuspid valve regurgitati on 03/27/2021 Hospital Cardiology Encounter Jacob Almaraz [place] [address], [address] [place] [address] CATHETERIZATION RIGHT HEART 03/27/2021 Surgery Cardiology Date/Time Name Priority Associated Diagnose s 03/27/2021 9:05 AM RN ON SITE CATHETERIZATION RIGHT HEART Nonrheumatic tricuspid valve regurgitation documented as of this encounter Goals Goal Patient Associated Recent Progress Patient-Stat Aut hor Goal Type Problems ed? Improve [facility] On track (10/23/2020 Yes Sheldon, 1:06 PM CDT) CHRYSTAL Singh [facility] On track (12/25/2020 Yes Sheldon, 2:41 PM CDT) CHRYSTAL Singh Note: "To get better and stronger." documented as of this encounter Results * (ABNORMAL) COMPREHENSIVE METABOLIC PANEL (03/02/2021 3:24 PM RN ON SITE) [facility] Signature Sodium 130 (L) 137 - 147 MMOL/L [...] (L) >60 mL/min [facility] Comment: [place] The eGFR is not validated f or use in drug dosing adjustments. Continue to use estimated creatinine clearance per dosing reference text. Please contact the Clinical Pharmacist for questions. eGFR 56 (L) >60 mL/min [facility] [place] Comment: The eGFR is not validated for use in drug dosing adjustments. Continue to use estimated creatinine clearance per dosing reference text. Please contact the Clinical Pharmacist for questions. Specimen Blood (substance) Performing Organization Address City/[facility]/ZIP Code P shane Number [facility] [address] [place] [address] * (ABNORMAL) CBC AND DIFF (03/02/2021 3:24 PM RN ON SITE) White Blood 4.6 4.5 - 11.0 K/UL [...] Count Specimen Blood (substance) Performing Organization Address City/[facility]/ZIP Code P shane Number [facility] [address] [place] [address] documented in this encounter Visit Diagnoses Diagnosis Chronic heart failure with preserved ej ection fraction (HCC) - Primary Other cirrhosis of liver (HCC) Nonrheumatic tricuspid valve regurgitat ion Tricuspid valve disorders, specified as nonrheumatic documented in this encounter Additional Health Concerns Noted Time Assessment 02/06/2021 9:31 AM RN ON SITE A fall risk assessment has been complet ed for the patient 12/07/2020 3:18 PM CDT PHQ-2 Depression Total Score: 2 documented as of this encounter Care Teams Start Date End Date Wafer Batter Mixer Relationship Specialty 05/15/20 Garfield Gray MD PCP - [address] [phone] 06/13/20 Riley Hopson MD Consulting Cardiovascul [address] Physician [address] Disease [address] [place], [place] [address] 12/20/20 Gino Pandya, GUEST SERVICES-LOADER HELPER Nurse Nurse 4000 [facility] Practitioner [address] [address] 01/19/21 Teri Brandon Continuum of Care Case Management documented as of this encounter
--- OUTSIDE RECORDS SUMMARY | 2021-03-11 12:17 | XMS REPORT | Encounter Summary ---
Author Author [facility] Organization [facility] Address Unknown Phone Unavailable Care Team Providers Care Order Processor Name Role Phone Self, Garfield OLVERA PCP Riley Hopson MD [phone] Gino Pandya EXCEPTIONAL STUDENT EDUCATION TEACHER-DIALYSIS RN [phone] Teri Brandon [phone] Unavailable Reason for Visit * Reason Onset Date Comments Other 02/06/2021 attempting to sched ule weekly paracentesis Encounter Details Care Team Description Date Type Department Jolie Steel BSN Other (attempting to schedule weekly par acentesis) 02/06/2021 Telephone Cardiology: [facility] [address] [place] [address] 1, [address] [place] [address] Social History Date Tobacco Use Types Packs/Day Years Used Never Smoker Smokeless Tobacco: Never Used Comments Alcohol Use Standard Drinks/Week Not Currently 0 (1 standard drink = 0.6 o z pure alcohol) Sex Assigned at Date Recorded Female 06/01/2020 1:44 PM NEUROPATHOLOGIST Date Recorded COVID-19 Exposure Response 02/06/2021 9:16 AM NEUROPATHOLOGIST In the last month, have you been [...] encounter Miscellaneous Notes * Telephone Encounter - Jolie Steel BSN - 02/06/2021 10:54 AM NEUROPATHOLOGIST Spoke with IR to request weekly paracentesis for patient. They will contact earl ent to discuss plan and how to schedule weekly paracentesis either today or tyrone rrow. Sent MyChart update to patient to let her know to expect a call from IR. OPATHOLOGIST documented in this encounter Plan of Treatment Care Team Description Date Type Specialty Carlos Longo MD 4000 [facility]600 [place] [address] [place] [address], [address] [place] [phone] 03/22/2021 Hospital Radiology Encounter Jacob Almaraz [address], [address] [place] [address] Nonrheumatic tricuspid valve regurgitati on 03/27/2021 Hospital Cardiology Encounter Jacob Almaraz MD [address], [address] [place] [address] CATHETERIZATION RIGHT HEART 03/27/2021 Surgery Cardiology Date/Time Name Priority Associated Diagnose s 03/27/2021 9:05 AM NEUROPATHOLOGIST CATHETERIZATION RIGHT HEART Nonrheumatic tricuspid valve regurgitation documented as of this encounter Goals Goal Patient Associated Recent Progress Patient-Stat Aut hor Goal Type Problems ed? [facility] On track (10/23/2020 Yes Sheldon, 1:06 PM CDT) CHRYSTAL Singh [facility] On track (12/25/2020 Yes Sheldon, 2:41 PM CDT) CHRYSTAL Singh Note: "To get better and stronger." documented as of this encounter Visit Diagnoses Not on filedocumented in this encounter Additional Health Concerns Noted Time Assessment 02/06/2021 9:31 AM NEUROPATHOLOGIST A fall risk assessment has been complet ed for the patient 12/07/2020 3:18 PM CDT PHQ-2 Depression Total Score: 2 documented as of this encounter Care Teams Start Date End Date Order Processor Relationship Specialty 05/15/20 Garfield Gray MD PCP - [address] [address] 06/13/20 Riley Hopson MD Consulting Cardiovascul [address] Physician [address] Disease [address] [place] [address] 12/20/20 Gino Pandya, EXCEPTIONAL STUDENT EDUCATION TEACHER-DIALYSIS RN Nurse Nurse [address] [address] 01/19/21 Teri Brandon Continuum of Care Case Management documented as of this encounter
--- OUTSIDE RECORDS SUMMARY | 2021-03-11 12:17 | XMS REPORT | Encounter Summary ---
Author Author [facility] Organization [facility] Address Unknown Phone Unavailable Care Team Providers Care Saloon Keeper Name Role Phone Self, Garfield OLVERA PCP Riley Hopson MD [phone] Gino Pandya APRN-REGULATOR ASSEMBLER [phone] Teri Brandon [phone] Unavailable Reason for Referral * Consult, Test & Treat (Routine) - Pending Review Diagnoses / Procedures Referred By Contact [facility] REQUEST FOR CARDIOLOGY APPOINTMENT Nithya Madison APRN-REGULATOR ASSEMBLER [address] [place] [address] Referral ID Status Reason Start Date Expiration Visits Vi sits Date Requested Authorized [id number] Pending 02/06/2021 02/06/2022 1 1 Review SORTER Reason for Visit * Reason Comments Heart Failure Follow Up Encounter Details Care Team Description Date Type Department Nithya Madison APRN-TWYLA [address] [place] [address] Heart Failure; Follow Up 02/06/2021 Office Visit Cardiology: [facility] [address] [facility] [address], [address] [place] [address] Social History Date Tobacco Use Types Packs/Day Years Used Never Smoker Smokeless Tobacco: Never Used Comments Alcohol Use Standard Drinks/Week Not Currently 0 (1 standard drink = 0.6 o z pure alcohol) Sex Assigned at Date Recorded Female 06/01/2020 1:44 PM LAST SORTER Date Recorded COVID-19 Exposure Response 02/06/2021 9:16 AM LAST SORTER In the last month, have you been in contact with No / Unsure someone who was confirmed or suspected to have Coronavirus / COVID-19? documented as of this encounter Last Filed Vital Signs Reading Time Taken Comments Vital Sign 110/60 02/06/2021 9:31 AM LAST SORTER Blood Pressure 119 02/06/2021 9:31 AM LAST SORTER Pulse - - Temperature - - Respiratory Rate 99% 02/06/2021 9:31 AM LAST SORTER Oxygen Saturation - - Inhaled Oxygen Concentration 58.2 kg (128 lb 3.2 oz) 02/06/2021 9:31 AM LAST SORTER home weight today was 125 lbs Weight 157.5 cm (5' 2") 02/06/2021 9:31 AM LAST SORTER Height 23.45 02/06/2021 9:31 AM LAST SORTER Body Mass Index documented in this encounter [...] Date End Date Prescription Sig Dispensed Refills 02/06/2021 empagliflozin (JARDIANCE) Take one 90 tablet 3 10 mg tablet tablet by mouth daily. 02/06/2021 02/01/2022 bumetanide (BUMEX) 1 mg Take five 900 tablet 3 tablet tablets by mouth twice daily for 360 days. documented in this encounter Progress Notes * Nithya Madison APRN-REGULATOR ASSEMBLER - 02/06/2021 9:30 AM LAST SORTER Date of Service: 02/06/2021 Zaria Paulson is a 61 y.o. female. She is followed by Dr. Longo HPI Her past medical history is significant for chronic heart failure with preserved ejection fraction, nonischemic cardiomyopathy, s/p aortic valve replacement x3 (on chronic anticoagulation for mechanical valve), severe tricuspid regurgitati on, paroxysmal atrial fibrillation, hypertension, previous endocarditis, iron de ficiency anemia -received IV iron, chronic kidney disease, hypothyroidism, depre ssion, non-Hodgkins lymphoma and cirrhosis (etiology secondary to chemotherapy from treatment with non-Hodgkin lymphoma). She has been hospitalized multiple times over the last 6 months (05/2020 for hear t failure, / for acute on chronic heart failure and GI bleed, for GI bleed and nontraumatic rectus hematoma, for acute on c hronic heart failure, /11/2020 for septic shock, for GI bleed (EGD showed varices, moderate portal hypertension gastropathy and under went paracentesis for ascites). She was last seen by myself on 01/11/2021 for post hospital follow-up. At this visit she was hypervolemic, was up 2 pounds from discharge a week prior and alre nakul showing signs of recurrent ascites. Her diuretics were increased with plans to discuss next steps with Dr. Longo given her complex history of heart failur e, severe tricuspid regurgitation, and cirrhosis. Dr. Longo and Dr. Marti discviviane ssed her condition, it is felt that this is primarily due to heart failure/valvu lar disease as her liver functions are preserved. We arranged having therapeuti c paracentesis every 2 weeks. She has been undergoing therapeutic paracentesis every 2 weeks. Her last parace ntesis was on 02/02/2021 in which they pulled off 7000 mL. She returns today for follow-up accompanied by her significant other. She repor ts her weight has already started to increase despite having a paracentesis 4 da ys ago. Her weight had gone down to 115 pounds and is now back up to 125 pounds . She reports significant symptom relief after the paracentesis. Her significa nt other believes that she is more active with receiving the paracentesis on a r outine basis. She is concerned that she needs them more often. She has tolerat ed the increase of her spironolactone without adverse effects. She is using 2 p illows at night. She denies paroxysmal nocturnal dyspnea, early satiety, chest pain, irregular heartbeat/palpitations, dizziness, and/or syncope/near syncope. Vitals: 02/06/21 0931 BP: 110/60 BP Source: Arm, Right Upper Patient Position: Sitting Pulse: 119 SpO2: 99% Weight: 58.2 kg (128 lb 3.2 oz) Height: 1.575 m (5' 2") PainSc: Zero Body mass index is 23.45 kg/m. Past Medical History Patient Active Problem List Diagnosis Date Noted Fall 2021 Acute kidney injury superimposed on CKD ([facility]) 01/02/2021 Severe malnutrition ([facility]) 12/27/2020 Severe sepsis ([facility]) 12/22/2020 Acute on chronic diastolic (congestive) heart failure ([facility]) 12/10/2020 RVF (right ventricular failure) ([facility]) 11/30/2020 Hyponatremia 11/30/2020 Acute on chronic heart failure ([facility]) 11/29/2020 Hematoma of left flank 11/15/2020 Hematoma of right flank 11/15/2020 Hematuria 11/15/2020 Nontraumatic rectus hematoma 11/04/2020 Hypoalbuminemia 10/23/2020 LEONORA (acute kidney injury) ([facility]) 10/21/2020 GI bleeding 10/20/2020 Cirrhosis ([facility]) 09/07/2020 Non-ischemic cardiomyopathy ([facility]) 09/07/2020 Paroxysmal atrial fibrillation ([facility]) 09/07/2020 Stage 3b chronic kidney disease ([facility]) 09/07/2020 Atrial tachycardia ([facility]) 09/07/2020 Iron deficiency anemia 08/03/2020 High output congestive heart failure ([facility]) 08/01/2020 Hypotension, unspecified 07/10/2020 Chronic heart failure with preserved ejection fraction ([facility]) 06/07/2020 Anemia 06/07/2020 Severe tricuspid regurgitation 06/07/2020 Hx of mechanical aortic valve replacement 06/07/2020 Chronic anticoagulation 06/07/2020 warfarin History of endocarditis 06/07/2020 Review of Systems Constitutional: Positive for malaise/fatigue and weight gain. HENT: Negative. Eyes: Negative. Cardiovascular: Positive for dyspnea on exertion and orthopnea. Respiratory: Negative. Endocrine: Negative. Hematologic/Lymphatic: Negative. Skin: Negative. Gastrointestinal: Positive for bloating. Genitourinary: Negative. Neurological: Negative. Psychiatric/Behavioral: Negative. Allergic/Immunologic: Negative. Physical ExamConstitutional: No acute distress HENT: Head - normocephalic Eyes: Conjunctivae normal Neck:10JVP,+HJR Cardiac Rhythm: Normal rate, regular rhythm Cardiac [...] comprehend information Vital signs reviewed Cardiovascular Studies 11/30/2020 echocardiogram 1. Normal left ventricular cavity size with [...] Peak systolic PA pressure was 79 mmHg. Right and left heart catheterization on 06/08/2020 HEMODYNAMICS: The patient's BSA is 1.67, hemoglobin 9.8, blood pressure 102/59 with a mean of 75 mmHg. Heart rate was 97 beats per minute. Right atrial mean pressure was 20 mmHg. Right ventricular pressure was 44/14 mmHg. Pulmonary arterial pressures wer e 49/24 mmHg with a mean of 32 mmHg. Pulmonary capillary wedge pressure was 25 mmHg. Transpulmonary gradient was 7 mmHg. Pulmonary vascular resistance was 1.3 Wood unit. Oxygen saturation in the aorta was 98%, right atrium 81%, pulm onary artery 79%. Cardiac output by thermodilution method was 5.33 L/minute with a cardiac inde x of 3.18 L/minute per sq m body surface area. Cardiac output by Yg is 9.24 L/minute with a cardiac index of 5.5 L/minute per sq m body surface area. Ending aortic pressure was 82/56 with a meanof 67 mmHg. SELECTIVE CORONARY ARTERIOGRAM: Right coronary artery: This arises normally from the right coronary sinus. It is a dominant vessel. The right coronary artery is patent with no signifi cant disease. Left main: The left main coronary artery arises normally from the left dylan nary sinus. The left main artery appears to be patent with no significant dise ase. Left circumflex artery: This arises normally from the left main. It is a nondominant vessel. There is no significant disease noted in the proximal area . In the midportion, there are mild luminal irregularities. Obtuse marginal branches are patent. Left anterior descending artery: This is a [...] failure with preserved ejection fraction (HCC) Yes Stage 3 chronic kidney disease, unspecified whether stage 3a or 3b CKD (HCC) Nonischemic cardiomyopathy (HCC) Paroxysmal atrial fibrillation (HCC) Severe tricuspid regurgitation RVF (right ventricular failure) (HCC) Hypotension, unspecified hypotension type Other cirrhosis of liver (HCC) Assessment and Plan Chronic Heart Failure with Preserved Ejection Fraction: -Echo on11/30/2020 showed an EF of 55 %. -GDMT:Spironolactone 75 mg twice daily daily, [id number] twice daily (GDMT/d iuresis limited due to hypotension) -She is not a candidate for CardioMEMS due to her recent GI bleed. -Today, she describes NYHA Functional ClassIII symptoms, appears hypervolemic by exam. Her weight has gone down to 115 pounds after her paracentesis last we ek however it is already back up to 125 pounds. She has tolerated the increase of spironolactone without any adverse effects. We will continue to try to uptit rate her GDMT/diuretics to see if we can slow down the progression of her hyperv olemia. We will start her on Jardiance 10 mg daily. Check BMP in 1 week. -Her GDMT in the past has been limited due to hypotension, will leave the midodr ine on for now. -With her progression of cirrhosis/volume overload will increase her paracentesi s to weekly as needed and attempt to try to keep her out of the hospital. -She has a follow-up appointment with Basilia Gaitan and Gino Pandya on 021. Have requested that she get in with Dr. Longo as soon as possible. Non-Ischemic Cardiomyopathy: -GDMT as described above Atrial Fibrillation (Paroxysmal)/ Atrial Tachycardia/ s/p AorticValveReplace ment: -She is onmetoprolol tartrateand denies palpitations. -She is onwarfarinoral anticoagulation with no significant signs / symptoms of bleeding. Her anticoagulation is managed by Dr. Longo's heart failure team. Severe Tricuspid Regurgitation: -Her echo on 05/22/2020 showed severe tricuspid regurgitation, PA pressure 64 mmHg . -Continue to work on volume management. She will need to see Dr. Longo soon as possible to determine next steps.. Hypotension: -Her blood pressures at home have been greater than 110 systolically. She denie s any dizziness. We will adjust her diuretics and if her blood pressure continu es to hold will work on titrating her off her midodrine. Chronic Kidney Disease - StageIII: -Her creatinine on 01/23/2021 was 1.14. Continue to monitor as we uptitrate GDMT /diuretics. Cirrhosis: -Dr. Longo and Dr. Marti discussed her condition, it is felt that her cirrhosis is primarily due to heart failure/valvular disease as her liver functions are pr eserved. -We previously arranged for therapeutic paracentesis every 2 weeks, her last par acentesis was on 02/02 and 7000 mL were removed. Her weight has already gone up from 115 pounds to 125 pounds in the last 4 days. -Will arrange for her therapeutic paracentesis to be completed every week as katalina ded. -As above she will need to see Dr. Longo as soon as possible to determine next s teps Follow Up Visit: Basilia Kandy and Gino Pandya on 03/14/2021. Have requeste d that she get in with Dr. Longo as soon as possible. I have personally documented the HPI, exam [...] concerns prior to the next appointment. Total [id number]. Estimated counseling time 25minutes. Thank you for allowing me to participate in the care of this patient. If you hav e any questions please do not hesitate to contact our office. Berna Madison, DNP, TRAINING ADMINISTRATOR, REGULATOR ASSEMBLER-C Collaborating Physician: Dr. Ramo Lamb [place] [facility] Current Medications (including today's revisions) bumetanide (BUMEX) 1 mg tablet Take five tablets by mouth twice daily for 36 0 days. calcium carbonate (OS-KRUPA) 1250 mg tablet Take 1,250 mg by mouth daily. empagliflozin (JARDIANCE) 10 mg tablet Take one tablet by mouth daily. ergocalciferol (VITAMIN D-2) 1,250 mcg (50,000 unit) capsule Take 1 capsule by mouth every 7 days. ferrous gluconate (FERGON) 240 mg (27 mg iron) tablet Take one tablet by devin th daily. fluticasone propionate (FLONASE) 50 mcg/actuation nasal spray, [...] tablets by mouth three times d aily. oxybutynin chloride (DITROPAN) 5 mg tablet Take one tablet by mouth three ti mes daily. pantoprazole DR (PROTONIX) 40 mg tablet Take 40 mg by mouth twice daily. sertraline (ZOLOFT) 100 mg tablet Take one tablet by mouth twice daily. spironolactone (ALDACTONE) 25 mg tablet Take three tablets by mouth daily. T loretta with food. (Patient taking differently: Take 75 mg by mouth twice daily. Aaron e with food.) VASCEPA 1 gram capsule TAKE 2 CAPSULES BY MOUTH TWICE DAILY WITH MEALS warfarin (COUMADIN) 1 mg tablet Take two tablets by mouth daily. SORTER documented in this encounter Miscellaneous Notes * Patient Instructions - Kathryn Barbosa MA - 02/06/2021 9:30 AM LAST SORTER Thank you for coming to [facility]. Your instructions tod ay: 1. Recommendations: - Start Jardiance 10mg daily. Let us know if this is too expensive. - Check BMP in 1 week. - We will try to change therapeutic paracentesis to weekly. - Follow a 2 gm sodium diet. - Ensure you are hydrating, drinking between 48-64 ounces daily (keeping below 2 L fluid restriction). - Call if you gain 3 lbs overnight or 5 lbs in 1 week OR if you have worsening s ymptoms (increased shortness of breath/swelling). - Call if you become dizzy/ lightheaded or if your blood pressure consistently d rops below 95/40. - To report symptoms to the heart failure team call [phone]. 2. Next follow up appointment: Basilia Gaitan on 03/14/21. Dr. Longo next availa ble. For up to date information on the [...] symptoms o In a medical emergency, call [phone] or go to the nearest emergency room. If you wish to contact us, please call and leave a message for the heart failure nurses at [phone]. For urgent issues after hours, on the weekends or holidays, please call [phone] to be connected with the nurse or doctor sunday school missionary. To schedule or change an appointment call [phone]. MD Basilia Jeffers, RYAN Watkins, CHRYSTAL Steel, CHRYSTAL Padilla, CHRYSTAL [place] [facility] Your Heart Failure Symptom Awareness [...] symptoms, please call the heart failure nurses: [phone] Increased shortness of breath with activity Weight gain of 3 pounds in one day or 5 pounds in a week Increased swelling in your ankles or legs Increased swelling in your stomach Increasing fatigue You may need an adjustment of your medications. Red Zone These are urgent symptoms. Please call the heart failure nurses: [phone] Shortness of breath at rest or waking up at night feeling short of breath or co ughing Increased number of pillows used or needing to sit upright to sleep Chest tightness at rest Dizziness, lightheadedness or feeling faint You need to schedule an appointme Emergency Zone call [phone] Worsening chest tightness or pain that is not rel ieved by medication Severe shortness of breath and a cough with pink, frothy sputum SORTER documented in this encounter Plan of Treatment Care Team Description Date Type Specialty Carlos Longo MD [address] [facility] [id number] [place] [address] [place] [address] [place] [phone] 03/22/2021 Hospital Radiology [place] [address], [address] [place] [phone] Nonrheumatic tricuspid valve regurgitati on 03/27/2021 Hospital Cardiology Encounter [place] Almaraz [place] [address], [address] [place] [phone] CATHETERIZATION RIGHT HEART 03/27/2021 Surgery Cardiology Order Schedule Name Type Priority Associated Diag noses Expected: 02/13/2021, Expires: 2 BASIC METABOLIC PANEL Lab Routine Stage 3 chronic kidney disease, unspecified whether stage 3a or 3b CKD (HCC) Date/Time Name Priority Associated Diagnose s 03/27/2021 9:05 AM LAST SORTER CATHETERIZATION RIGHT HEART Nonrheumatic tricuspid valve regurgitation documented as of this encounter Goals Goal Patient Associated Recent Progress Patient-Stat Aut hor Goal Type Problems ed? [facility] On track (10/23/2020 Yes Sheldon, 1:06 PM CDT) CHRYSTAL Singh [facility] On track (12/25/2020 Yes Sheldon, 2:41 PM CDT) CHRYSTAL Singh Note: "To get better and stronger." documented as of this encounter Visit Diagnoses Diagnosis Chronic heart failure with preserved ej ection fraction (HCC) - Primary Stage 3 chronic kidney disease, unspeci fied whether stage 3a or 3b CKD (HCC) Nonischemic cardiomyopathy (HCC) Other primary cardiomyopathies Paroxysmal atrial fibrillation (HCC) Atrial fibrillation Severe tricuspid regurgitation Diseases of tricuspid valve RVF (right ventricular failure) (HCC) Congestive heart failure, unspecified Hypotension, unspecified hypotension ty pe Other cirrhosis of liver (HCC) Nonrheumatic tricuspid valve regurgitat ion Tricuspid valve disorders, specified as nonrheumatic documented in this encounter Discontinued Medications Start Date End Date Medication Sig Discontinue Reason 12/15/2020 02/06/2021 HYDROcodone/acetaminophen Take 1 Patient's (NORCO) 5/325 mg tablet tablet by Choice mouth every 4-6 hours as needed 02/06/2021 mupirocin (BACTROBAN) 2 % Apply 1 g Patient's topical ointment topically to Choice affected area three times daily. 01/24/2021 02/06/2021 bumetanide (BUMEX) 1 mg Take five Reorder tablet tablets by mouth twice daily for 30 days. documented as of this encounter Orders First Ordered Date Appointment Count Last Ordered Date REQUEST FOR CARDIOLOGY APPOINTMENT 1 documented in this encounter Additional Health Concerns Noted Time Assessment 02/06/2021 9:31 AM LAST SORTER A fall risk assessment has been complet ed for the patient 12/07/2020 3:18 PM CDT PHQ-2 Depression Total Score: 2 documented as of this encounter Care Teams Start Date End Date Saloon Keeper Relationship Specialty 05/15/20 Garfiedl Gray MD PCP - [address] [phone] 06/13/20 Riley Hopson MD Consulting Cardiovascul [address] Physician ar Disease [address] [place] [id number] 12/20/20 Gino Pandya APRN-REGULATOR ASSEMBLER Nurse Nurse [address] [place] [id number] 01/19/21 Teri Brandon Continuum of Care Case Management documented as of this encounter
--- OUTSIDE RECORDS SUMMARY | 2021-03-11 12:17 | XMS REPORT | Encounter Summary ---
Author Author [facility] Address Unknown Phone Unavailable Care Team Providers Care Gallery Host Name Role Phone Self, Garfield OLVERA PCP Riley Hopson MD [phone] Gino Pandya APRN-IUSS MASTER ANALYST [phone] Teri Brandon [phone] Unavailable Reason for Visit * Reason Comments Anticoagulation INR 1.7 Encounter Details Care Team Description Date Type Department Helen Waggoner RN Anticoagulation (INR 1.7) 02/12/2021 Anticoagulation Cardiology: [facility] [address] [place] [address] [address], [address] [place] [address] Social History Date Tobacco Use Types Packs/Day Years Used Never Smoker Smokeless Tobacco: Never Used Comments Alcohol Use Standard Drinks/Week Not Currently 0 (1 standard drink = 0.6 o z pure alcohol) Sex Assigned at Date Recorded Female 06/01/2020 1:44 PM BASKET ASSEMBLER Date Recorded COVID-19 Exposure Response 02/12/2021 2:30 PM BASKET ASSEMBLER In the last month, have you been [...] Progress Notes * Helen Waggoner RN - 02/12/2021 3:24 PM BASKET ASSEMBLER INR 1.7 and WNL. My Chart message sent to patient of warfarin plan; patient acti ve on [facility]. Next INR check on Friday, 02/19. ET ASSEMBLER documented in this encounter Plan of Treatment Care Team Description Date Type Specialty Carlos Longo MD [address] [facility] [place], [place] [phone] [place] [address], [address] [place] [address] 03/22/2021 [facility] Radiology Encounter Jacob Almaraz MD [address], [address] [place] [phone] Nonrheumatic tricuspid valve regurgitati on 03/27/2021 Hospital Cardiology [place] [address], [address] [place] [phone] CATHETERIZATION RIGHT HEART 03/27/2021 Surgery Cardiology Date/Time Name Priority Associated Diagnose s 03/27/2021 9:05 AM BASKET ASSEMBLER CATHETERIZATION RIGHT HEART Nonrheumatic tricuspid valve regurgitation documented as of this encounter Goals Goal Patient Associated Recent Progress Patient-Stat Aut hor Goal Type Problems ed? [facility] On track (10/23/2020 Yes Sheldon, 1:06 PM CDT) CHRYSTAL Singh [facility] On track (12/25/2020 Yes Sheldon, 2:41 PM CDT) CHRYSTAL Singh Note: "To get better and stronger." documented as of this encounter Visit Diagnoses Not on filedocumented in this encounter Additional Health Concerns Noted Time Assessment 02/12/2021 3:04 PM BASKET ASSEMBLER A fall risk assessment has been complet ed for the patient 12/07/2020 3:18 PM CDT PHQ-2 Depression Total Score: 2 documented as of this encounter Care Teams Start Date End Date Gallery Host Relationship Specialty 05/15/20 Garfield Gray MD PCP - [address] [phone] 06/13/20 Riley Hopson MD Consulting Cardiovascul [address] Physician ar Disease [address] [place], [place] [address] 12/20/20 Gino Pandya, MILK BOTTLER-IUSS MASTER ANALYST Nurse Nurse [address] [place] [phone] 01/19/21 Teri Brandon Continuum of Care Case Management documented as of this encounter
--- OUTSIDE RECORDS SUMMARY | 2021-03-11 12:17 | XMS REPORT | Encounter Summary ---
Author Author [facility] Organization [facility] Address Unknown Phone Unavailable Care Team Providers Care Biological Plant Operator Name Role Phone Self, Garfield OLVERA PCP Riley Hopson MD [phone] Gino Pandya RESEARCH PROFESSOR OF BIOSTATISTICS-INSPECTOR BALANCE BRIDGE [phone] Teri Brandon [phone] Unavailable Encounter Details Care Team Description Date Type Department 03/05/2021 Travel Social History Date Tobacco Use Types Packs/Day Years Used Never Smoker Smokeless Tobacco: Never Used Comments Alcohol Use Standard Drinks/Week Not Currently 0 (1 standard drink = 0.6 o z pure alcohol) Sex Assigned at Date Recorded Female 06/01/2020 1:44 PM WILDLIFE BIOSTATION RESEARCH ECOLOGIST Date Recorded COVID-19 Exposure Response 03/05/2021 8:08 AM WILDLIFE BIOSTATION RESEARCH ECOLOGIST In the last month, have you been [...] Date Type Specialty Carlos Longo MD [address] [facility] [place] [address] [place] [address] [place] [phone] 03/22/2021 Hospital Radiology [place]counter [place] Almaraz [place] [address] [place] [phone] Nonrheumatic tricuspid valve regurgitati on 03/27/2021 Hospital [place] [address], [address] [place] [phone] CATHETERIZATION RIGHT HEART 03/27/2021 Surgery Cardiology Date/Time Name Priority Associated Diagnose s 03/27/2021 9:05 AM WILDLIFE BIOSTATION RESEARCH ECOLOGIST CATHETERIZATION RIGHT HEART Nonrheumatic tricuspid valve regurgitation documented as of this encounter Goals Goal Patient Associated Recent Progress Patient-Stat Aut hor Goal Type Problems ed? Improve [facility] On track (10/23/2020 Yes Sheldon, 1:06 PM CDT) CHRYSTAL Singh [facility] On track (12/25/2020 Yes Sheldon, 2:41 PM CDT) CHRYSTAL Singh Note: "To get better and stronger." documented as of this encounter Visit Diagnoses Not on filedocumented in this encounter Additional Health Concerns Noted Time Assessment 03/05/2021 8:16 AM WILDLIFE BIOSTATION RESEARCH ECOLOGIST A fall risk assessment has been complet ed for the patient 12/07/2020 3:18 PM CDT PHQ-2 Depression Total Score: 2 documented as of this encounter Care Teams Start Date End Date Biological Plant Operator Relationship Specialty 05/15/20 Garfield Gray MD PCP - General [address] [place] [address] 06/13/20 Riley Hopson MD Consulting Cardiovascul [address] Physician ar Disease [address] [place] [address] 12/20/20 Gino Pandya, RESEARCH PROFESSOR OF BIOSTATISTICS-INSPECTOR BALANCE BRIDGE Nurse Nurse [address] [place] [id number] 01/19/21 Teri Brandon Continuum of Care Case Management documented as of this encounter
--- OUTSIDE RECORDS SUMMARY | 2021-03-11 12:17 | XMS REPORT | Encounter Summary ---
Author Author [facility] Organization [facility] Address Unknown Phone Unavailable Care Team Providers Care Permastone Installer Name Role Phone Self, Garfield OLVERA PCP Riley Hopson MD [phone] Gino Pandya APRN-TUBULAR PRODUCTS FABRICATOR [phone] Teri Brandon [phone] Unavailable Reason for Visit * Reason Onset Date Comments Tachycardia 02/19/2021 Encounter Details Care Team Description Date Type Department Fernie Camargo LPN Tachycardia 02/19/2021 Telephone Cardiology: [facility] [address] [place] [address] 1, [address] [place] [address] Social History Date Tobacco Use Types Packs/Day Years Used Never Smoker Smokeless Tobacco: Never Used Comments Alcohol Use Standard Drinks/Week Not Currently 0 (1 standard drink = 0.6 o z pure alcohol) Sex Assigned at Date Recorded Female 06/01/2020 1:44 PM STAY CUTTER Date Recorded COVID-19 Exposure Response 02/19/2021 7:52 AM STAY CUTTER In the last month, have you been [...] Telephone Encounter - Susan Palomino RN - 02/19/2021 12:28 PM STAY CUTTER Called and spoke to patient. She cancelled appointment with Dr. Longo today, how ever she is agreeable to do Telehealth with him today at 3 PM. Patient states at the time of call she is not having fast heart rates. Will access further at the time of telehealth. CUTTER * Telephone Encounter - Fernie Camargo LPN - 02/19/2021 12:21 PM STAY CUTTER Received call from interventional radiology reporting pts pulse was up to 130 to day while she was there for her paracentesis. No symptoms reported. CUTTER documented in this encounter Plan of Treatment Care Team Description Date Type Specialty Carlos Longo MD [address] [address] [place] [address], [address] [place] [phone] 03/22/2021 Hospital Radiology [place]counter [place] [address], [address] [place] [phone] Nonrheumatic tricuspid valve regurgitati on 03/27/2021 Hospital Cardiology Encounter Jacob Almaraz [place] [address] [place] [phone] CATHETERIZATION RIGHT HEART 03/27/2021 Surgery Cardiology Date/Time Name Priority Associated Diagnose s 03/27/2021 9:05 AM STAY CUTTER CATHETERIZATION RIGHT HEART Nonrheumatic tricuspid valve regurgitation documented as of this encounter Goals Goal Patient Associated Recent Progress Patient-Stat Aut hor Goal Type Problems ed? Improve [facility] On track (10/23/2020 Yes Sheldon, 1:06 PM CDT) CHRYSTAL Singh Improve [facility] On track (12/25/2020 Yes Sheldon, 2:41 PM CDT) CHRYSTAL Singh Note: "To get better and stronger." documented as of this encounter Visit Diagnoses Not on filedocumented in this encounter Additional Health Concerns Noted Time Assessment 02/19/2021 8:13 AM STAY CUTTER A fall risk assessment has been complet ed for the patient 12/07/2020 3:18 PM CDT PHQ-2 Depression Total Score: 2 documented as of this encounter Care Teams Start Date End Date Permastone Installer Relationship Specialty 05/15/20 Garfield Gray MD PCP - [address] [phone] 06/13/20 Riley Hopson MD Consulting Cardiovascul [address] [place] [address] Physician ar Disease [address] [place], [place] [address] 12/20/20 Gino Pandya APRN-TUBULAR PRODUCTS FABRICATOR Nurse Nurse [address] [phone] 01/19/21 Teri Bradnon Continuum of Care Case Management documented as of this encounter
--- OUTSIDE RECORDS SUMMARY | 2021-03-11 12:17 | XMS REPORT | Encounter Summary ---
Author Author [facility] Organization [facility] Address Unknown Phone Unavailable Care Team Providers Care Instructor Hairspring Name Role Phone Self, Garfield OLVERA PCP Riley Hopson MD [phone] Gino Pandya APRN-SENIOR QA AUTOMATION ENGINEER [phone] Teri Brandon [phone] Unavailable Reason for Visit * Reason Comments Labs Only Encounter Details Care Team Description Date Type Department Kathryn Barbosa MA Labs Only 02/12/2021 Documentation Cardiology: [facility] [address] [place] [address] 1, [address] [place] [address] Social History Date Tobacco Use Types Packs/Day Years Used Never Smoker Smokeless Tobacco: Never Used Comments Alcohol Use Standard Drinks/Week Not Currently 0 (1 standard drink = 0.6 o z pure alcohol) Sex Assigned at Date Recorded Female 06/01/2020 1:44 PM STONE LAYER Date Recorded COVID-19 Exposure Response 02/06/2021 9:16 AM STONE LAYER In the last month, have you been [...] Date Type Specialty Carlos Longo MD 4000 [facility] [id number] [place], [place] [phone] [place] [address], [address] [place] [phone] 03/22/2021 Hospital Radiology Encounter Jacob Al[place]az [place] [address], [address] [place] [phone] Nonrheumatic tricuspid valve regurgitati on 03/27/2021 Hospital Cardiology Encounter Jacob Almaraz MD [address], [address] [place] [phone] CATHETERIZATION RIGHT HEART 03/27/2021 Surgery Cardiology Date/Time Name Priority Associated Diagnose s 03/27/2021 9:05 AM STONE LAYER CATHETERIZATION RIGHT HEART Nonrheumatic tricuspid valve regurgitation documented as of this encounter Goals Goal Patient Associated Recent Progress Patient-Stat Aut hor Goal Type Problems ed? Improve [facility] On track (10/23/2020 Yes Sheldon, 1:06 PM CDT) CHRYSTAL Singh [facility] On track (12/25/2020 Yes Sheldon, 2:41 PM CDT) CHRYSTAL Singh Note: "To get better and stronger." documented as of this encounter Procedures Comments Procedure Name Priority Date/Time Associated Diag nosis PROTIME INR (PT) Routine 02/12/2021 Paroxysmal at rial fibrillation (HCC) documented in this encounter Results * PROTIME INR (PT) (02/12/2021) INR 1.7 [facility] Specimen Blood - Blood Narrative Performing Organization Address City/State/ZIP Code P shane Number MAIN LAB [address] [place] [address] documented in this encounter Visit Diagnoses Diagnosis Paroxysmal atrial fibrillation (HCC) Atrial fibrillation Nonrheumatic tricuspid valve regurgitat ion Tricuspid valve disorders, specified as nonrheumatic documented in this encounter Additional Health Concerns Noted Time Assessment 02/12/2021 3:04 PM STONE LAYER A fall risk assessment has been complet ed for the patient 12/07/2020 3:18 PM CDT PHQ-2 Depression Total Score: 2 documented as of this encounter Care Teams Start Date End Date Instructor Hairspring Relationship Specialty 05/15/20 Garfield Gray MD PCP - [address] [phone] 06/13/20 Riley Hopson MD Consulting Cardiovascul [address] [place] [address] Physician ar Disease [address] [place], [place] [address] 12/20/20 Gino Pandya, VICE PRESIDENT OF MANUFACTURING-SENIOR QA AUTOMATION ENGINEER Nurse Nurse 4000 [facility] [place], [place] [phone] 01/19/21 Teri Brandon Continuum of Care Case Management documented as of this encounter
--- OUTSIDE RECORDS SUMMARY | 2021-03-11 12:17 | XMS REPORT | Encounter Summary ---
Author Author [facility] Organization [facility] Address Unknown Phone Unavailable Care Team Providers Care Process Controller Name Role Phone Self, Garfield OLVERA PCP Riley Hopson MD [phone] Gino Pandya LABORER LANDSCAPE-GROUND SURVEILLANCE SYSTEMS OPERATOR [phone] Teri Brandon [phone] Unavailable Reason for Referral * Radiology Services (Routine) - Authorized Diagnoses / Procedures Referred By Contact Referred To Conta ct Specialty Diagnoses Chronic heart failure with preserved ejection fraction (HCC) RVF (right ventricular failure) (HCC) Other cirrhosis of liver (HCC) Procedures IR PARACENTESIS THERAPEUTIC Carlos Longo MD [address] [address] [place] [place] [address] [place] [address] Radiology Referral ID Status Reason Start Date Expiration Visits Vi sits Date Requested Authorized [id number] Authorized 01/22/2021 01/22/2022 20 20 TE HUNTER Reason for Visit * Radiology Services (Routine) - Authorized Diagnoses / Procedures Referred By Contact Referred To Conta ct Specialty Diagnoses Chronic heart failure with preserved ejection fraction (HCC) RVF (right ventricular failure) (HCC) Other cirrhosis of liver (HCC) Procedures IR PARACENTESIS THERAPEUTIC Carlos Longo MD [address] [place] [id number] [address] [place] [address] [place] [address] Radiology Referral ID Status Reason Start Date Expiration Visits Vi sits Date Requested Authorized [id number] Authorized 01/22/2021 01/22/2022 20 20 Encounter Details Care Team Description Date Type Department Karsten Griffiths MD [facility] [phone] Shruhti Davey, RT(R)(),LRT Claudia Crenshaw RN Chronic heart failure with preserved eje ction fraction (HCC) 03/02/2021 Hospital Interventional Radi ology: Encounter [facility] [address] [place] [address] Social History Date Tobacco Use Types Packs/Day Years Used Never Smoker Smokeless Tobacco: Never Used Comments Alcohol Use Standard Drinks/Week Not Currently 0 (1 standard drink = 0.6 o z pure alcohol) Sex Assigned at Date Recorded Female 06/01/2020 1:44 PM COYOTE HUNTER Date Recorded COVID-19 Exposure Response 03/02/2021 2:50 PM COYOTE HUNTER In the last month, have you been in contact with No / Unsure someone who was confirmed or suspected to have Coronavirus / COVID-19? documented as of this encounter Last Filed Vital Signs Reading Time Taken Comments Vital Sign 110/71 03/02/2021 4:45 PM COYOTE HUNTER Blood Pressure - - Pulse 36.8 C (98.2 F) 03/02/2021 3:12 PM COYOTE HUNTER Temperature - - Respiratory Rate 96% 03/02/2021 4:45 PM COYOTE HUNTER Oxygen Saturation - - Inhaled Oxygen Concentration 60.6 kg (133 lb 9.6 oz) 03/02/2021 3:12 PM COYOTE HUNTER Weight 157.5 cm (5' 2") 03/02/2021 3:12 PM COYOTE HUNTER Height 24.44 03/02/2021 3:12 PM COYOTE HUNTER Body Mass Index documented in this encounter [...] Discharge Disposition Code Departure Means Destination Disposition Walk-out Home or Self Care documented in this encounter Progress Notes * Brigitte Hinojosa RN - 03/02/2021 4:00 PM COYOTE HUNTER Interventional Radiology Outpatient Scheduling Checklist 1. Name of Procedure(s): Paracentesis 2. Date of Procedure: 03/02/2021 3. Arrival Time: 1500 4. Procedure Time: 1600 5. Correct Procedural [facility]. Blood Thinners Triaged and instructed per protocol: Y/N/NA: NA Confirmed accurate instructions sent to patient: Y/N: NA 7. Procedure Order Verified: Y/N: Yes 9. Patient instructed to have a driver medic: Y/N/NA: Yes 10. Patient instructed on NPO [...] electronic procedure instructions: Y/N: Yes; my chart TE HUNTER documented in this encounter H&P Notes * Karsten Griffiths MD - 03/02/2021 4:00 PM COYOTE HUNTER Pre Procedure History and Physical/Sedation Plan-OP Procedure Date: 03/02/2021 Planned Procedure(s): Para Indication: ascites Chief Complaint: above History of Present Illness: Zaria Paulson is a 61 y.o. female. Patient Active Problem List Diagnosis Date Noted Fall 2021 Acute kidney injury superimposed on CKD ([facility]) 01/02/2021 Severe malnutrition ([facility]) 12/27/2020 Severe sepsis ([facility]) 12/22/2020 Acute on chronic diastolic (congestive) heart failure ([facility]) 12/10/2020 RVF (right ventricular failure) ([facility]) 11/30/2020 Hyponatremia 11/30/2020 Acute on chronic heart failure ([facility]) 11/29/2020 Hematoma of left flank 11/15/2020 Hematoma of right flank 11/15/2020 Hematuria 11/15/2020 Nontraumatic rectus hematoma 11/04/2020 Hypoalbuminemia 10/23/2020 LEONORA (acute kidney injury) ([facility]) 10/21/2020 GI bleeding 10/20/2020 Cirrhosis ([facility]) 09/07/2020 Non-ischemic cardiomyopathy ([facility]) 09/07/2020 Paroxysmal atrial fibrillation ([facility]) 09/07/2020 Stage 3b chronic kidney disease ([facility]) 09/07/2020 Atrial tachycardia ([facility]) 09/07/2020 Iron deficiency anemia 08/03/2020 High output [...] 06/06/2020 Performed by Bao Hernández MD at [facility] COLONOSCOPY DIAGNOSTIC WITH SPECIMEN COLLECTION BY BRUSHING/ WASHING - FLEXI BLE N/A 06/06/2020 Performed by Bao Hernández MD at [facility] ANGIOGRAPHY CORONARY ARTERY WITH RIGHT AND LEFT HEART CATHETERIZATION N/A Performed by Higinio Clarke MD at [facility] KETTLE ROOM HELPER POSSIBLE PERCUTANEOUS CORONARY STENT PLACEMENT WITH ANGIOPLASTY N/A Performed by Higinio Clarke MD at [facility] KETTLE ROOM HELPER ESOPHAGOGASTRODUODENOSCOPY WITH SPECIMEN COLLECTION BY BRUSHING/ WASHING N/A 10/21/2020 Performed by Cosmo Gomez MD at [facility] SIGMOIDOSCOPY WITH CONTROL OF BLEEDING - FLEXIBLE N/A 10/21/2020 Performed by Cosmo Gomez MD at [facility] END[facility] SIGMOIDOSCOPY WITH DIRECTED SUBMUCOSAL INJECTION - FLEXIBLE 10/21/2020 Performed by Cosmo Gomez MD at [facility] ENDO ESOPHAGOGASTRODUODENOSCOPY WITH CONTROL OF BLEEDING - FLEXIBLE N/A Performed by Bao Hernández MD at [facility] (Not in a hospital admission) No Known Allergies Social History: Social History [...] No pertinent labs Karsten Griffiths MD Pager TE HUNTER documented in this encounter Procedure Notes * Karsten Griffiths MD - 03/02/2021 3:59 PM COYOTE HUNTER Immediate Post Procedure Note Date: 03/02/2021 Attending Physician: Sussy Griffiths Testing Consultant(s): Shruthi Procedure(s): para Indications: ascites Findings: above Anesthesia: Local 5 mL 1% lidocaine without epinephrine Sedation/Medication Plan: Other Time out performed: Consent obtained, correct patient verified, correct procedur e verified, correct site verified, patient marked as necessary. Estimated Blood Loss: None/Negligible Specimen(s) Removed/Disposition: None Complications: None Comments: Karsten Griffiths MD TE HUNTER documented in this encounter Miscellaneous Notes * Patient Education - Brigitte Hinojosa RN - 03/02/2021 4:00 PM COYOTE HUNTER Dear Ms. Paulson, Thank you for choosing [facility] Interventional Rad iology for your procedure. Your appointment information is listed below: Appointment Date: 03/02/21 Appointment Time: 4:00 PM Arrival Time: 3:00 PM Location: [facility]: [address] [place] [address] Parking: available in the front of the building [facility] PRE-PROCEDURE INSTRUCTIONS LOCAL You are scheduled for a procedure in Interventional Radiology. Please follow dimitri instructions and any direction from your Primary [...] your care and activities after the procedure. TE HUNTER * Patient Instructions - Alondra Augustin RN - 03/02/2021 2:55 PM COYOTE HUNTER Images from the original note were not [...] to the procedu re performed at the [place] Location, call [phone] Friday-Friday from 7 -5p. After-hours and weekends, please call [phone] and ask for the [facility] Pack Operator on-call. You or your caregiver should call [phone] for any severe symptoms such as excessive bleeding, severe dizziness, trouble breathing or loss of consciousness. TE HUNTER documented in this encounter Plan of Treatment Care Team Description Date Type Specialty Carlos Longo MD [address] [facility] [place] [address] [place] [address], [address] [place] [address] 03/22/2021 Hospital Radiology [place]counter [place] Al[place]az [address], [address] [place] [phone] Nonrheumatic tricuspid valve regurgitati on 03/27/2021 Hospital Cardiology [place] [address], [address] [place] [phone] CATHETERIZATION RIGHT HEART 03/27/2021 Surgery Cardiology Date/Time Name Priority Associated Diagnose s 03/27/2021 9:05 AM COYOTE HUNTER CATHETERIZATION RIGHT HEART Nonrheumatic tricuspid valve regurgitation documented as of this encounter Goals Goal Patient Associated Recent Progress Patient-Stat Aut hor Goal Type Problems ed? Improve [facility] On track (10/23/2020 Yes Sheldon, 1:06 PM CDT) CHRYSTAL Singh [facility] On track (12/25/2020 Yes Sheldon, 2:41 PM CDT) CHRYSTAL Singh Note: "To get better and stronger." documented as of this encounter Procedures Comments Procedure Name Priority Date/Time Associated Diag nosis IR PARACENTESIS Routine 03/02/2021 Chronic heart failure THERAPEUTIC 4:19 PM COYOTE HUNTER with preserved ejec tion fraction (HCC) RVF (right ventricular failure) (HCC) Other cirrhosis of liver (HCC) HC CBC W/ AUTOMATED DIFF Routine 03/02/2021 Chron ic heart failure 3:24 PM COYOTE HUNTER with preserved ejection fraction (HCC) Other cirrhosis of liver (HCC) HC COMPREHENSIVE Routine 03/02/2021 Chronic heart failure METABOLIC PANEL 3:24 PM COYOTE HUNTER with preserved ejec tion fraction (HCC) Other cirrhosis of liver (HCC) documented in this encounter Results * IR PARACENTESIS THERAPEUTIC (03/02/2021 4:19 PM COYOTE HUNTER) Modality Anatomical Region Laterality Ultrasound Specimen Impressions [facility] - 03/02/2021 4:31 PM COYOTE HUNTER IMPRESSION: Ultrasound guided paracentesis with removal of 6.2 liters of fluid. Karsten Toribio M.D., the attending radiologist, was present for the procedure, personally reviewed the images, and formulated the interpretations and opinions expressed in this report. @TT Finalized by Karsten Griffiths M.D. on 03/02/2021 4:31 PM. Dictated by Karsten Griffiths M.D. on 03/02/2021 4:31 PM. Narrative [facility] RESULTS - 03/02/2021 4:31 PM COYOTE HUNTER Exam: Ultrasound-guided paracentesis. History: Ascites. Technique: After obtaining informed written consent the patient was placed supine on the procedure table. Using ultrasound guidance, an appropriate insertion site in the right lower quadrant was marked. The patient was prepped and draped in the usual sterile fashion. Lidocaine was used for local anesthesia. A Vul-A-Deagssam needle was inserted into the abdomen, with return of clear yellow fluid. Fluid was removed, the total amount as listed below. The needle was removed. Hemostasis was achieved using manual compression. The patient tolerated procedure well, and left the department in good condition. Procedure Note Karsten Griffiths MD - 03/02/2021 Exam: Ultrasound-guided paracentesis. History: Ascites. Technique: After obtaining informed written consent the patient was placed supine on the procedure table. Using ultrasound guidance, an appropriate insertion site in the right lower quadrant was marked. The patient was prepped and draped in the usual sterile fashion. Lidocaine was used for local anesthesia. A Knz-M-Pusolpke needle was inserted into the abdomen, with return of clear yellow fluid. Fluid was removed, the total amount as listed below. The needle was removed. Hemostasis was achieved using manual compression. The patient tolerated procedure well, and left the department in good condition. IMPRESSION IMPRESSION: Ultrasound guided paracentesis with removal of 6.2 liters of fluid. Karsten Toribio M.D., the attending radiologist, was present for the procedure, personally reviewed the images, and formulated the interpretations and opinions expressed in this report. @TT Finalized by Karsten Griffiths M.D. on 03/02/2021 4:31 PM. Dictated by Karsten Griffiths M.D. on 03/02/2021 4:31 PM. Performing Organization Address City/State/ZIP Code P shane Number [facility] * (ABNORMAL) CBC AND DIFF (03/02/2021 3:24 PM COYOTE HUNTER) White Blood 4.6 4.5 - 11.0 K/UL [...] P shane Number [facility] [address] [place] [address] * (ABNORMAL) COMPREHENSIVE METABOLIC PANEL (03/02/2021 3:24 PM COYOTE HUNTER) Sodium 130 (L) 137 - 147 MMOL/L [...] (L) >60 mL/min [facility] Comment: [place] The eGFR is not validated f or use in drug dosing adjustments. Continue to use estimated creatinine clearance per dosing reference text. Please contact the Clinical Pharmacist for questions. eGFR 56 (L) >60 mL/min [facility] [place] Comment: The eGFR is not validated for use in drug dosing adjustments. Continue to use estimated creatinine clearance per dosing reference text. Please contact the Clinical Pharmacist for questions. Specimen Blood (substance) Performing Organization Address City/State/ZIP Code P shane Number [facility] [address] [place] [address] documented in this encounter Visit Diagnoses Diagnosis Chronic heart failure with preserved ej ection fraction (HCC) RVF (right ventricular failure) (HCC) Congestive heart failure, unspecified Other cirrhosis of liver (HCC) Nonrheumatic tricuspid valve regurgitat ion Tricuspid valve disorders, specified as nonrheumatic documented in this encounter Administered Medications Action Date Dose Rate Site Medication Order MAR Action 03/02/2021 4:14 PM COYOTE HUNTER 12.5 g albumin 25% injection Given - New INTRA-PROCEDURE MED(CONT), Starting on Bag Fri03/02/21 at 1606, Until Fri 1 at 1614 12.5 g Given - New Bag 03/02/2021 4:09 PM COYOTE HUNTER 12.5 g Given - New Bag 03/02/2021 4:06 PM COYOTE HUNTER documented in this encounter Active and Recently Administered Medications Times are shown in COYOTE HUNTER. 03/01/2021 03/02/2021 Medication Order 02/28/2021 1606 (Given - New Bag - Provider: Claudia Crenshaw RN)1609 (Given - New Bag - Provider: Claudia Crenshaw RN)1614 (Given - New Bag - Provider: Claudia Crenshaw RN) albumin 25% injection (COMPLETED) INTRA-PROCEDURE MED(CONT), Starting on Fri03/02/21 at 1606, Until Fri 1 at 1614 documented in this encounter Additional Health Concerns Noted Time Assessment 03/02/2021 3:11 PM COYOTE HUNTER A fall risk assessment has been complet ed for the patient 12/07/2020 3:18 PM CDT PHQ-2 Depression Total Score: 2 documented as of this encounter Care Teams Start Date End Date Process Controller Relationship Specialty 05/15/20 Garfield Gray MD PCP - [address] [address] 06/13/20 Riley Hopson MD Consulting Cardiovascul [address] Physician [address] Disease [address] [place], [place] [address] 12/20/20 Gino Pandya, LABORER LANDSCAPE-GROUND SURVEILLANCE SYSTEMS OPERATOR Nurse Nurse [address] [address] 01/19/21 Teri Brandon Continuum of Care Case Management documented as of this encounter
--- OUTSIDE RECORDS SUMMARY | 2021-03-11 12:17 | XMS REPORT | Encounter Summary ---
Author Author [facility] Organization [facility] Address Unknown Phone Unavailable Care Team Providers Care Online Marketing Strategist Name Role Phone Self, Garfield OLVERA PCP Riley Hopson MD [phone] Gino Pandya ELEMENTARY ART TEACHER-SUPERVISOR AIRCRAFT CLEANING [phone] Teri Brandon [phone] Unavailable Encounter Details Care Team Description Date Type Department Aarti Mars RN Nonrheumatic tricuspid valve regurgitati on (Primary Dx); Encounter for screening laboratory testing for COVID-19 virus in asymptomatic patient 02/22/2021 Prep for Case Cardiology: [facility] 4000 [facility], [address] [place] [address] Social History Date Tobacco Use Types Packs/Day Years Used Never Smoker Smokeless Tobacco: Never Used Comments Alcohol Use Standard Drinks/Week Not Currently 0 (1 standard drink = 0.6 o z pure alcohol) Sex Assigned at Date Recorded Female 06/01/2020 1:44 PM SHIP'S OFFICER Date Recorded COVID-19 Exposure Response 02/19/2021 7:52 AM SHIP'S OFFICER In the last month, have you been [...] Date Type Specialty Carlos Longo MD 4000 [facility] HLH106 [place] [address] [place] [address], [address] [place] [phone] 03/22/2021 Hospital Radiology Encounter Jacob Almaraz MD [address], [address] [place] [phone] Nonrheumatic tricuspid valve regurgitati on 03/27/2021 Hospital Cardiology [place]counter [place] [address], [address] [place] [phone] CATHETERIZATION RIGHT HEART 03/27/2021 Surgery Cardiology Order Schedule Name Type Priority Associated Diag noses Expected: 03/23/2021 (Approximate), Expi res: 02/22/2022 COVID-19 (SARS-COV-2) PCR Microbiology Routine Enco unter for screening laboratory testing for COVID-19 virus in asymptomatic patient Date/Time Name Priority Associated Diagnose s 03/27/2021 9:05 AM SHIP'S OFFICER CATHETERIZATION RIGHT HEART Nonrheumatic tricuspid valve regurgitation documented as of this encounter Goals Goal Patient Associated Recent Progress Patient-Stat Aut hor Goal Type Problems ed? Improve [facility] On track (10/23/2020 Yes Sheldon, 1:06 PM CDT) CHRYSTAL Singh [facility] On track (12/25/2020 Yes Sheldon, 2:41 PM CDT) CHRYSTAL Singh Note: "To get better and stronger." documented as of this encounter Visit Diagnoses Diagnosis Nonrheumatic tricuspid valve regurgitat ion - Primary Tricuspid valve disorders, specified as nonrheumatic Encounter for screening laboratory test ing for COVID-19 virus in asymptomatic patient Nonrheumatic tricuspid valve regurgitat ion Tricuspid valve disorders, specified as nonrheumatic documented in this encounter Orders First Ordered Date Case Request Count Last Ordered Date CASE REQUEST GEOMETRY PROFESSOR 1 02/22/2021 documented in this encounter Additional Health Concerns Noted Time Assessment 02/19/2021 8:13 AM SHIP'S OFFICER A fall risk assessment has been complet ed for the patient 12/07/2020 3:18 PM CDT PHQ-2 Depression Total Score: 2 documented as of this encounter Care Teams Start Date End Date Online Marketing Strategist Relationship Specialty 05/15/20 Garfield Gray MD PCP - [address] [phone] 06/13/20 Riley Hopson MD Consulting Cardiovascul [address] [place] [address] Physician ar Disease [address] [place] [address] 12/20/20 Gino Pandya, ELEMENTARY ART TEACHER-SUPERVISOR AIRCRAFT CLEANING Nurse Nurse [address] [address] 01/19/21 Teri Brandon Continuum of Care Case Management documented as of this encounter
--- OUTSIDE RECORDS SUMMARY | 2021-03-11 12:17 | XMS REPORT | Encounter Summary ---
Author Author [facility] Organization [facility] Address Unknown Phone Unavailable Care Team Providers Care Retread Operator Name Role Phone Self, Garfield OLVERA PCP Riley Hopson MD [phone] Gino Pandya APRN-LEAKAGE TESTER [phone] Teri Brandon [phone] Unavailable Reason for Visit * Reason Comments Anticoagulation Encounter Details Care Team Description Date Type Department Josi Purvis BSN Anticoagulation 02/09/2021 Anticoagulation Cardiology: [facility] [address] [place] [address] [address], [address] [place] [address] Social History Date Tobacco Use Types Packs/Day Years Used Never Smoker Smokeless Tobacco: Never Used Comments Alcohol Use Standard Drinks/Week Not Currently 0 (1 standard drink = 0.6 o z pure alcohol) Sex Assigned at Date Recorded Female 06/01/2020 1:44 PM TUNNELLER Date Recorded COVID-19 Exposure Response 02/06/2021 9:16 AM TUNNELLER In the last month, have you been [...] Date Type Specialty Carlos Longo MD 4000 [facility] [id number] [place], [place] [id number] [place] [address], [address] [place] [phone] 03/22/2021 Hospital Radiology Encounter Jacob Almaraz [place] [address], [address] [place] [phone] Nonrheumatic tricuspid valve regurgitati on 03/27/2021 Hospital Cardiology Encounter Jacob Almaraz [place] [address], [address] [place] [phone] CATHETERIZATION RIGHT HEART 03/27/2021 Surgery Cardiology Date/Time Name Priority Associated Diagnose s 03/27/2021 9:05 AM TUNNELLER CATHETERIZATION RIGHT HEART Nonrheumatic tricuspid valve regurgitation documented as of this encounter Goals Goal Patient Associated Recent Progress Patient-Stat Aut hor Goal Type Problems ed? Improve [facility] On track (10/23/2020 Yes Sheldon, 1:06 PM CDT) CHRYSTAL Singh [facility] On track (12/25/2020 Yes Sheldon, 2:41 PM CDT) CHRYSTAL Singh Note: "To get better and stronger." documented as of this encounter Procedures Comments Procedure Name Priority Date/Time Associated Diag nosis HOME INR Routine 02/09/2021 5:32 PM TUNNELLER documented in this encounter Results * (ABNORMAL) HOME INR (02/09/2021 5:32 PM TUNNELLER) INR Home 1.2 (A) 1.5 - 2 [facility] Specimen Performing Organization Address City/State/ZIP Code P shane Number [facility] [address] [place] [phone] [address] documented in this encounter Visit Diagnoses Diagnosis Hx of mechanical aortic valve replaceme nt - Primary Heart valve replaced by other means Chronic anticoagulation Long-term (current) use of anticoagulan ts Paroxysmal atrial fibrillation (HCC) Atrial fibrillation Nonrheumatic tricuspid valve regurgitat ion Tricuspid valve disorders, specified as nonrheumatic documented in this encounter Additional Health Concerns Noted Time Assessment 02/06/2021 9:31 AM TUNNELLER A fall risk assessment has been complet ed for the patient 12/07/2020 3:18 PM CDT PHQ-2 Depression Total Score: 2 documented as of this encounter Care Teams Start Date End Date Retread Operator Relationship Specialty 05/15/20 Garfield Gray MD PCP - [address] [phone] 06/13/20 Riley Hopson MD Consulting Cardiovascul [address] Physician ar Disease [address] [place], [place] [address] 12/20/20 Gino Pandya, COOK MESS-LEAKAGE TESTER Nurse Nurse [address] [place] [address] 01/19/21 Teri Brandon Continuum of Care Case Management documented as of this encounter
--- OUTSIDE RECORDS SUMMARY | 2021-03-11 12:17 | XMS REPORT | Encounter Summary ---
Author Author [facility] Organization [facility] Address Unknown Phone Unavailable Care Team Providers Care Magazine Publisher Name Role Phone Self, Garfield OLVERA PCP Riley Hopson MD [phone] Gino Pandya HYDRAULIC STRAINER OPERATOR-PILOT SUPERVISOR [phone] Teri Brandon [phone] Unavailable Reason for Visit * Reason Comments Precertification Medicare Encounter Details Care Team Description Date Type Department Reagan Edgar RN Precertification (Medicare) 03/06/2021 Documentation Cardiology: [facility] [address] [facility], [address] [place] [address] Social History Date Tobacco Use Types Packs/Day Years Used Never Smoker Smokeless Tobacco: Never Used Comments Alcohol Use Standard Drinks/Week Not Currently 0 (1 standard drink = 0.6 o z pure alcohol) Sex Assigned at Date Recorded Female 06/01/2020 1:44 PM CLINICAL NURSE EDUCATOR Date Recorded COVID-19 Exposure Response 03/05/2021 8:08 AM CLINICAL NURSE EDUCATOR In the last month, have you been [...] as of this encounter Progress Notes * Reagan Edgar RN - 03/06/2021 11:27 AM CLINICAL NURSE EDUCATOR Medicare is listed as patient's primary insurance coverage. Pre-certification i s not required for hospitalizations. ICAL NURSE EDUCATOR documented in this encounter Plan of Treatment Care Team Description Date Type Specialty Carlos Longo MD [address] [facility] [address] [place] [address] [place] [address] [place] [address] 03/22/2021 Hospital Radiology [place] [address], [address] [place] [phone] Nonrheumatic tricuspid valve regurgitati on 03/27/2021 Hospital Cardiology [place]counter Jacob Almaraz MD [address], [address] [place] [address] CATHETERIZATION RIGHT HEART 03/27/2021 Surgery Cardiology Date/Time Name Priority Associated Diagnose s 03/27/2021 9:05 AM CLINICAL NURSE EDUCATOR CATHETERIZATION RIGHT HEART Nonrheumatic tricuspid valve regurgitation documented as of this encounter Goals Goal Patient Associated Recent Progress Patient-Stat Aut hor Goal Type Problems ed? Improve [facility] On track (10/23/2020 Yes Sheldon, 1:06 PM CDT) CHRYSTAL Singh [facility] On track (12/25/2020 Yes Sheldon, 2:41 PM CDT) CHRYSTAL Singh Note: "To get better and stronger." documented as of this encounter Visit Diagnoses Not on filedocumented in this encounter Additional Health Concerns Noted Time Assessment 03/05/2021 8:16 AM CLINICAL NURSE EDUCATOR A fall risk assessment has been complet ed for the patient 12/07/2020 3:18 PM CDT PHQ-2 Depression Total Score: 2 documented as of this encounter Care Teams Start Date End Date Magazine Publisher Relationship Specialty 05/15/20 Garfield Gray MD PCP - [address] [id number] 06/13/20 Riley Hopson MD Consulting Cardiovascul [address] Physician [address] Disease [address] [place], [place] [address] 12/20/20 Gino Pandya, HYDRAULIC STRAINER OPERATOR-PILOT SUPERVISOR Nurse Nurse [address] [place] [address] 01/19/21 Teri Brandon Continuum of Care Case Management documented as of this encounter
--- OUTSIDE RECORDS SUMMARY | 2021-03-11 12:17 | XMS REPORT | Encounter Summary ---
Author Author [facility] Organization [facility] Address Unknown Phone Unavailable Care Team Providers Care Warehouse Driver Name Role Phone Self, Garfield OLVERA PCP Riley Hopson MD [phone] Gino Pandya WEB PRESS OPERATOR HELPER OFFSET-DATA COMMUNICATIONS ANALYST [phone] Teri Brandon [phone] Unavailable Encounter Details Care Team Description Date Type Department 02/12/2021 Travel Social History Date Tobacco Use Types Packs/Day Years Used Never Smoker Smokeless Tobacco: Never Used Comments Alcohol Use Standard Drinks/Week Not Currently 0 (1 standard drink = 0.6 o z pure alcohol) Sex Assigned at Date Recorded Female 06/01/2020 1:44 PM PHARMACY DATA ANALYST Date Recorded COVID-19 Exposure Response 02/12/2021 2:30 PM PHARMACY DATA ANALYST In the last month, have you been [...] Date Type Specialty Carlos Longo MD [address] [facility] [place] [address] [place] [address], [address] [place] [phone] 03/22/2021 Hospital Radiology Encounter Jacob Almaraz [place] [address], [address] [place] [phone] Nonrheumatic tricuspid valve regurgitati on 03/27/2021 Hospital Cardiology [place]counter [place] Almaraz [place] [address], [address] [place] [phone] CATHETERIZATION RIGHT HEART 03/27/2021 Surgery Cardiology Date/Time Name Priority Associated Diagnose s 03/27/2021 9:05 AM PHARMACY DATA ANALYST CATHETERIZATION RIGHT HEART Nonrheumatic tricuspid valve regurgitation documented as of this encounter Goals Goal Patient Associated Recent Progress Patient-Stat Aut hor Goal Type Problems ed? Improve [facility] On track (10/23/2020 Yes Sheldon, 1:06 PM CDT) CHRYSTAL Singh [facility] On track (12/25/2020 Yes Sheldon, 2:41 PM CDT) CHRYSTAL Singh Note: "To get better and stronger." documented as of this encounter Visit Diagnoses Not on filedocumented in this encounter Additional Health Concerns Noted Time Assessment 02/12/2021 3:04 PM PHARMACY DATA ANALYST A fall risk assessment has been complet ed for the patient 12/07/2020 3:18 PM CDT PHQ-2 Depression Total Score: 2 documented as of this encounter Care Teams Start Date End Date Warehouse Driver Relationship Specialty 05/15/20 Garfield Gray MD PCP - General [address] [place] [address] 06/13/20 Riley Hopson MD Consulting Cardiovascul [address] Physician [address] Disease [address] [place] [address] 12/20/20 Gino Pandya, WEB PRESS OPERATOR HELPER OFFSET-DATA COMMUNICATIONS ANALYST Nurse Nurse [address] [place] [address] 01/19/21 Teri Brandon Continuum of Care Case Management documented as of this encounter
--- OUTSIDE RECORDS SUMMARY | 2021-03-11 12:17 | XMS REPORT | Encounter Summary ---
Author Author [facility] Organization [facility] Address Unknown Phone Unavailable Care Team Providers Care Houseperson Name Role Phone Self, Garfield OLVERA PCP Riley Hopson MD [phone] Gino Pandya MRI CT TECH-DENTAL OFFICE ASSISTANT [phone] Teri Brandon [phone] Unavailable Reason for Referral * Radiology Services (Routine) - Authorized Diagnoses / Procedures Referred By Contact Referred To Conta ct Specialty Diagnoses Chronic heart failure with preserved ejection fraction (HCC) RVF (right ventricular failure) (HCC) Other cirrhosis of liver (HCC) Procedures IR PARACENTESIS THERAPEUTIC Carlos Longo MD [address] [address] [place] [place] [address] [place] [address] Radiology Referral ID Status Reason Start Date Expiration Visits Vi sits Date Requested Authorized [id number] Authorized 01/22/2021 01/22/2022 20 20 MATIC PRESS HAND Reason for Visit * Radiology Services (Routine) - Authorized Diagnoses / Procedures Referred By Contact Referred To Conta ct Specialty Diagnoses Chronic heart failure with preserved ejection fraction (HCC) RVF (right ventricular failure) (HCC) Other cirrhosis of liver (HCC) Procedures IR PARACENTESIS THERAPEUTIC Carlos Longo MD [address] [place] [address] [place] [place] [address] [place] [address] Radiology Referral ID Status Reason Start Date Expiration Visits Vi sits Date Requested Authorized [id number] Authorized 01/22/2021 01/22/2022 20 20 Encounter Details Care Team Description Date Type Department [place], [place] [address], [address] [place] [phone] Miracle Morales, RN Shae Lino, RT(R)(),LRT Chronic heart failure with preserved eje ction fraction (HCC) 02/12/2021 Hospital Interventional Radi ology: Encounter [facility] [address] [place] [phone] Social History Date Tobacco Use Types Packs/Day Years Used Never Smoker Smokeless Tobacco: Never Used Comments Alcohol Use Standard Drinks/Week Not Currently 0 (1 standard drink = 0.6 o z pure alcohol) Sex Assigned at Date Recorded Female 06/01/2020 1:44 PM PNEUMATIC PRESS HAND Date Recorded COVID-19 Exposure Response 02/12/2021 2:30 PM PNEUMATIC PRESS HAND In the last month, have you been in contact with No / Unsure someone who was confirmed or suspected to have Coronavirus / COVID-19? documented as of this encounter Last Filed Vital Signs Reading Time Taken Comments Vital Sign 99/69 02/12/2021 4:49 PM PNEUMATIC PRESS HAND Blood Pressure - - Pulse 36.7 C (98 F) 02/12/2021 3:00 PM PNEUMATIC PRESS HAND Temperature - - Respiratory Rate 95% 02/12/2021 4:49 PM PNEUMATIC PRESS HAND Oxygen Saturation - - Inhaled Oxygen Concentration 60.3 kg (133 lb) 02/12/2021 3:00 PM PNEUMATIC PRESS HAND Weight 157.5 cm (5' 2") 02/12/2021 3:00 PM PNEUMATIC PRESS HAND Height 24.33 02/12/2021 3:00 PM PNEUMATIC PRESS HAND Body Mass Index documented in this encounter [...] Date End Date Medication Sig Dispensed Refills 02/06/2021 02/01/2022 bumetanide (BUMEX) 1 mg Take [...] tablet tablets by mouth three times daily. 02/12/2021 oxybutynin chloride Take one 180 [...] tablet 0 tablet tablets by mouth daily. 05/09/2020 02/19/2021 ergocalciferol (VITAMIN Take 1 0 D-2) 1,250 mcg (50,000 capsule by unit) capsule mouth every 7 days. 01/11/2021 02/21/2021 spironolactone Take three 274 tablet 3 (ALDACTONE) 25 mg tablet tablets by mouth daily. Take with food. documented as of this encounter Discharge Disposition Code Departure Means Destination Disposition Car Home or Self Care documented in this encounter Progress Notes * Kayden Felix RN - 02/12/2021 4:00 PM PNEUMATIC PRESS HAND Interventional Radiology Outpatient Scheduling Checklist 1. Name of Procedure(s): Paracentesis 2. Date of Procedure: 02/12/202102/19, 02/26, 03/05, 03/12 and 03/19 3. Arrival Time: 1500 0800 4. Procedure Time: 1600 0900 5. Correct Procedural Room Assignment: [facility] 6. Blood Thinners Triaged and instructed per protocol: Y/N/NA: Patient flakita ing Coumadin, OK to continue per protocol. Confirmed accurate instructions sent to patient: Y/N: YES 7. Procedure Order Verified: Y/N: Yes 9. Patient instructed to have a cmv driver: Y/N/NA: Yes 10. Patient instructed on [...] have labs according to IR Pre-procedure Laboratory Parame ter policy: Y/N/NA: Yes INR and Chemistry. NO recent CBC If No, was the patient instructed to obtain labs prior to procedure: Y/N/NA: NA 15. Will the patient need to be admitted or have a possible admission: Y/N: N o If yes, confirmed accurate instructions sent to patient: Y/N/NA: NA 16. Patient States Understanding:Y/N: Yes 17. History of CATE: Y/N: No If yes, confirm request to bring CPAP sent to patient: Y/N/NA: NA 18. Patient declines electronic procedure instructions: Y/N: No MATIC PRESS HAND documented in this encounter H&P Notes * Blair Greene MD - 02/12/2021 3:47 PM PNEUMATIC PRESS HAND Pre Procedure History and Physical/Sedation Plan-OP Procedure Date: 02/12/2021 Planned Procedure(s): paracentesis Indication: ascites Chief Complaint: ascites History of Present Illness: Zaria Paulson is a 61 y.o. female. ASCITES. Patient Active Problem List Diagnosis Date Noted Fall 2021 Acute kidney injury superimposed on CKD (HCC) 01/02/2021 Severe malnutrition ([facility]) 12/27/2020 Severe sepsis ([facility]) 12/22/2020 Acute on chronic diastolic (congestive) heart failure ([facility]) 12/10/2020 RVF (right ventricular failure) ([facility]) 11/30/2020 Hyponatremia 11/30/2020 Acute on chronic heart failure ([facility]) 11/29/2020 Hematoma of left flank 11/15/2020 Hematoma of right flank 11/15/2020 Hematuria 11/15/2020 Nontraumatic rectus hematoma 11/04/2020 Hypoalbuminemia 10/23/2020 LEONORA (acute kidney injury) ([facility]) 10/21/2020 GI bleeding 10/20/2020 Cirrhosis ([facility]) 09/07/2020 Non-ischemic cardiomyopathy (HCC) 09/07/2020 Paroxysmal atrial [...] 06/06/2020 Performed by Bao Hernández MD at [facility] COLONOSCOPY DIAGNOSTIC WITH SPECIMEN COLLECTION BY BRUSHING/ WASHING - FLEXI BLE N/A 06/06/2020 Performed by Bao Hernández MD at [facility] ANGIOGRAPHY CORONARY ARTERY WITH RIGHT AND LEFT HEART CATHETERIZATION N/A Performed by Higinio Clarke MD at [facility] INTERCELL CONNECTOR PLACER POSSIBLE PERCUTANEOUS CORONARY STENT PLACEMENT WITH ANGIOPLASTY N/A Performed by Higinio Clarke MD at [facility] INTERCELL CONNECTOR PLACER ESOPHAGOGASTRODUODENOSCOPY WITH SPECIMEN COLLECTION BY BRUSHING/ WASHING N/A 10/21/2020 Performed by Cosmo Gomez MD at [facility] SIGMOIDOSCOPY WITH CONTROL OF BLEEDING - FLEXIBLE N/A 10/21/2020 Performed by Cosmo Gomez MD at [facility] SIGMOIDOSCOPY WITH DIRECTED SUBMUCOSAL INJECTION - FLEXIBLE 10/21/2020 Performed by Cosmo Gomez MD at [facility] ESOPHAGOGASTRODUODENOSCOPY WITH CONTROL OF BLEEDING - FLEXIBLE N/A Performed by Bao Hernández MD at [facility] Medications Prior to Admission Medication Sig Dispense Refill Last Dose bumetanide (BUMEX) 1 mg tablet Take five tablets by mouth twice daily for 36 0 days. 900 tablet 3 02/12/2021 calcium carbonate (OS-KRUPA) 1250 mg tablet Take 1,250 mg by mouth daily. empagliflozin (JARDIANCE) 10 mg tablet Take one tablet by mouth daily. 90 ta blet 3 02/12/2021 ergocalciferol (VITAMIN D-2) 1,250 mcg (50,000 unit) capsule Take 1 capsule by mouth every 7 days. 02/11/2021 ferrous gluconate (FERGON) 240 mg (27 mg iron) tablet Take one tablet by devin th daily. 90 tablet 1 02/11/2021 fluticasone propionate (FLONASE) 50 mcg/actuation nasal spray, suspension Ap ply to each nostril as directed daily. Shake bottle gently before using. 01/23 hyoscyamine (ANASPAZ) 0.125 mg rapid dissolve tablet Place one tablet under tongue every 4 hours as needed. 180 tablet 0 02/12/2021 levothyroxine (SYNTHROID) 75 mcg tablet Take 75 mcg by mouth daily 30 minute s before breakfast. 02/12/2021 midodrine (PROAMATINE) 5 mg tablet Take three tablets by mouth three times d aily. 270 tablet 3 02/12/2021 oxybutynin chloride (DITROPAN) 5 mg tablet Take one tablet by mouth daily. 1 80 tablet [address] (PROTONIX) 40 mg tablet Take 40 mg by mouth twice daily. 1 04/14/2020 sertraline (ZOLOFT) 100 mg tablet Take one tablet by mouth twice daily. 180 tablet 0 02/12/2021 spironolactone (ALDACTONE) 25 mg tablet Take three tablets by mouth daily. T loretta with food. (Patient taking differently: Take 75 mg by mouth twice daily. Flakiat e with food.) 274 tablet 3 02/12/2021 VASCEPA 1 gram capsule TAKE 2 CAPSULES BY MOUTH TWICE DAILY WITH MEALS warfarin (COUMADIN) 1 mg tablet Take two tablets by mouth daily. 120 tablet 0 02/11/2021 No Known Allergies Social History: Social History Tobacco Use Smoking status: Never Smoker Smokeless tobacco: Never Used Substance Use Topics Alcohol use: Not Currently Family History Problem Relation Age of Onset COPD Mother Review of Systems A comprehensive review of systems was negative. Previous Anesthetic/Sedation History: tolerated without complication. Family History of Sedation Complications: Denies Adverse Events Physical Exam: Vital Signs: Last Filed In 24 Hours Vital Signs: 24 Hour Range BP: 104/85 (02/12 1500) Temp: 36.7 C (98 F) (02/12 1500) Height: 157.5 cm (62") (02/12 1500) BP: (104)/(85) Temp: [36.7 C (98 F)] General: Alert, cooperative, no distress Eyes: Conjunctivae clear, PERRL Neck: No LAD, No JVD Lungs: symmetric chest movement, no distress Chest wall: No tenderness or deformity Heart: RRR Abdomen: NT, distended Airway: airway assessment performed Mallampati II (soft palate, uvula, fauces visible) Anesthesia Classification: ASA III (A patient with a severe systemic disease th at limits activity, but is not incapacitating) Sedation/Medication Plan: Local Medications for Reversal: Flumazenil and naloxone PRN Discussion/Reviews: Physician has discussed risks and alternatives of this type of sedation and above planned procedures with patient NPO Status: Acceptable Status: Not Lab/Other Diagnostic Tests: Labs: Pertinent labs reviewed Blair Greene MD MATIC PRESS HAND documented in this encounter Miscellaneous Notes * Patient Education - Kayden Felix RN - 02/12/2021 4:00 PM PNEUMATIC PRESS HAND Dear Ms Davilakatie, Thank you for choosing [facility] Interventional Rad iology for your procedure. Your appointment information is listed below: Appointment Date: 02/12/202102/19, 02/26, 03/05, 03/12 and 03/19/2021 Appointment Time: 4PM 9AM Arrival Time: 3PM 8AM Location: [facility]: [address] [place] [address] Parking: available in the front of the building INTERVENTIONAL RADIOLOGY PRE-PROCEDURE INSTRUCTIONS LOCAL You are scheduled for a procedure in Interventional Radiology. Please follow dimitri instructions and any direction from your Primary Care/Managing Physician. I f you have questions about your procedure or need to reschedule please call [phone]. Medication Instructions: Continue scheduled medication. Diet Instructions: [...] your care and activities after the procedure. MATIC PRESS HAND * Patient Instructions - Claudia Crenshaw RN - 02/12/2021 3:09 PM PNEUMATIC PRESS HAND Images from the original note were not [...] to the procedu re performed at the [facility] Location, call [phone] Friday-Friday from 7 -5p. After-hours and weekends, please call [phone] and ask for the [facility] [address] Man on-call. You or your caregiver should call [phone] for any severe symptoms such as excessive bleeding, severe dizziness, trouble breathing or loss of consciousness. MATIC PRESS HAND documented in this encounter Plan of Treatment Care Team Description Date Type Specialty Carlos Longo MD [address] [facility] [id number] [place] [address] [place] [address], [address] [place] [address] 03/22/2021 Hospital Radiology [place]counter [place] [address] [place] [address] Nonrheumatic tricuspid valve regurgitati on 03/27/2021 Hospital Cardiology [place]counter [place] [address], [address] [place] [address] CATHETERIZATION RIGHT HEART 03/27/2021 Surgery Cardiology Date/Time Name Priority Associated Diagnose s 03/27/2021 9:05 AM PNEUMATIC PRESS HAND CATHETERIZATION RIGHT HEART Nonrheumatic tricuspid valve regurgitation documented as of this encounter Goals Goal Patient Associated Recent Progress Patient-Stat Aut hor Goal Type Problems ed? Improve [facility] On track (10/23/2020 Yes Sheldon, 1:06 PM CDT) CHRYSTAL Singh [facility] On track (12/25/2020 Yes Sheldon, 2:41 PM CDT) CHRYSTAL Singh Note: "To get better and stronger." documented as of this encounter Procedures Comments Procedure Name Priority Date/Time Associated Diag nosis IR PARACENTESIS Routine 02/12/2021 Chronic heart failure THERAPEUTIC 4:21 PM PNEUMATIC PRESS HAND with preserved ejec tion fraction (HCC) RVF (right ventricular failure) (HCC) Other cirrhosis of liver (HCC) documented in this encounter Results * IR PARACENTESIS THERAPEUTIC (02/12/2021 4:21 PM PNEUMATIC PRESS HAND) Modality Anatomical Region Laterality Ultrasound Specimen Impressions [facility] RESULTS - 02/12/2021 4:53 PM PNEUMATIC PRESS HAND 1. Successful ultrasound guided therap eutic paracentesis. Finalized by Blair Greene M.D. on 02/12/2021 4:53 PM. Dictated by Blair Greene M.D. on 02/12/2021 4:53 PM. Narrative [facility] RESULTS - 02/12/2021 4:53 PM PNEUMATIC PRESS HAND Ultrasound-guided paracentesis CLINICAL INDICATION: Symptomatic ascites MEDICATIONS: 10 mL subcutaneous Lidocaine 2% PLUNGER MACHINE OPERATOR: Blair Greene M.D. TECHNIQUE: Transverse real time images were obtained through the abdomen. The risks and benefits of this procedure were discussed and informed written consent was obtained prior to performing the procedure. The abdomen was then prepped and draped in usual sterile fashion. Limited ultrasound of the abdomen was performed. Under ultrasound guidance, a 5 Montenegrin centesis needle was advanced into the peritoneal fluid collection and catheter advanced into the collection over the needle, and needle was removed. The catheter was connected to Vacutainer bottles and 6100 mL of cloudy white fluid was removed. There were no immediate complications of the procedure. No significant blood loss. Patient tolerated procedure well. FINDINGS: Free peritoneal fluid demonstrated on ultrasound. Procedure Note Blair Greene MD - 02/12/2021 Ultrasound-guided paracentesis CLINICAL INDICATION: Symptomatic ascites MEDICATIONS: 10 mL subcutaneous Lidocaine 2% PLUNGER MACHINE OPERATOR: Blair Greene M.D. TECHNIQUE: Transverse real time images were obtained through the abdomen. The risks and benefits of this procedure were discussed and informed written consent was obtained prior to performing the procedure. The abdomen was then prepped and draped in usual sterile fashion. Limited ultrasound of the abdomen was performed. Under ultrasound guidance, a 5 Montenegrin centesis needle was advanced into the peritoneal fluid collection and catheter advanced into the collection over the needle, and needle was removed. The catheter was connected to Vacutainer bottles and 6100 mL of cloudy white fluid was removed. There were no immediate complications of the procedure. No significant blood loss. Patient tolerated procedure well. FINDINGS: Free peritoneal fluid demonstrated on ultrasound. IMPRESSION 1. Successful [facility] par[facility]esis. Finalized by Blair Greene M.D. on 02/12/2021 4:53 PM. Dictated by Blair Greene M.D. on 02/12/2021 4:53 PM. Performing Organization Address City/State/ZIP Code P [...] Dose Rate Site Medication Order MAR Action 02/12/2021 4:14 PM PNEUMATIC PRESS HAND 12.5 g albumin 25% injection Given - New INTRA-PROCEDURE MED(CONT), Starting on Bag Fri02/12/21 at 1607, Until Fri 1 at 1614 12.5 g Given - New Bag 02/12/2021 4:09 PM PNEUMATIC PRESS HAND 12.5 g Given - New Bag 02/12/2021 4:07 PM PNEUMATIC PRESS HAND documented in this encounter Active and Recently Administered Medications Times are shown in PNEUMATIC PRESS HAND. 02/11/2021 02/12/2021 Medication Order 02/10/2021 1607 (Given - New Bag - Provider: Alondra kwon RN)1609 (Given - New Bag - Provider: Alondra Augustin RN)1614 (Given - New Bag - Provider: Alondra Augustin RN) albumin 25% injection (COMPLETED) INTRA-PROCEDURE MED(CONT), Starting on Fri02/12/21 at 1607, Until Fri 1 at 1614 documented in this encounter Additional Health Concerns Noted Time Assessment 02/12/2021 3:04 PM PNEUMATIC PRESS HAND A fall risk assessment has been complet ed for the patient 12/07/2020 3:18 PM CDT PHQ-2 Depression Total Score: 2 documented as of this encounter Care Teams Start Date End Date Houseperson Relationship Specialty 05/15/20 Garfield Gray MD PCP - [address] [address] 06/13/20 Riley Hopson MD Consulting Cardiovascul [address] Physician [address] Disease [address] [place], [place] [address] 12/20/20 Gino Pandya, MRI CT TECH-DENTAL OFFICE ASSISTANT Nurse Nurse [address] [address] 01/19/21 Teri Brandon Continuum of Care Case Management documented as of this encounter
--- OUTSIDE RECORDS SUMMARY | 2021-03-11 12:17 | XMS REPORT | Encounter Summary ---
Author Author [facility] Organization [facility] Address Unknown Phone Unavailable Care Team Providers Care Telegraph Repeater Installer Name Role Phone Self, Garfield OLVERA PCP Riley Hopson MD [phone] Gino Pandya GENERAL MAINTENANCE MECHANIC-PROGRAM EVALUATOR [phone] Teri Brandon [phone] Unavailable Reason for Visit * Reason Onset Date Comments Appointment Request 03/05/2021 Encounter Details Care Team Description Date Type Department Allison Marti MD 4000 [facility] UL[address] [place], [place] [id number] Appointment Request 03/05/2021 Telephone Transplant: Main Rachael coto, [facility] [address] [facility] [address], [address] [place] [address] Social History Date Tobacco Use Types Packs/Day Years Used Never Smoker Smokeless Tobacco: Never Used Comments Alcohol Use Standard Drinks/Week Not Currently 0 (1 standard drink = 0.6 o z pure alcohol) Sex Assigned at Date Recorded Female 06/01/2020 1:44 PM TOY CONSULTANT Date Recorded COVID-19 Exposure Response 03/08/2021 7:56 AM TOY CONSULTANT In the last month, have you been [...] encounter Miscellaneous Notes * Telephone Encounter - Adriana Gallegos - 03/05/2021 11:50 AM TOY CONSULTANT Received an Internal new patient referral on this estab pt. Dr Enrrique Longo ref erred to Dr Miller-yet pt is estab with Figueroa/Radha. I will close the referral a n assume she will just need a return appt. CONSULTANT documented in this encounter Plan of Treatment Care Team Description Date Type Specialty Carlos Longo MD 4000 [facility] [place] [address] [place] [address], [address] [place] [address] 03/22/2021 Hospital Radiology Encounter Jacob Almaraz MD [address], [address] [place] [address] Nonrheumatic tricuspid valve regurgitati on 03/27/2021 Hospital Cardiology Encounter Jacob Almaraz MD [address], [address] [place] [address] CATHETERIZATION RIGHT HEART 03/27/2021 Surgery Cardiology Date/Time Name Priority Associated Diagnose s 03/27/2021 9:05 AM TOY CONSULTANT CATHETERIZATION RIGHT HEART Nonrheumatic tricuspid valve regurgitation documented as of this encounter Goals Goal Patient Associated Recent Progress Patient-Stat Aut hor Goal Type Problems ed? Improve [facility] On track (10/23/2020 Yes Sheldon, 1:06 PM CDT) CHRYSTAL Singh [facility] On track (12/25/2020 Yes Sheldon, 2:41 PM CDT) CHRYSTAL Singh Note: "To get better and stronger." documented as of this encounter Visit Diagnoses Not on filedocumented in this encounter Additional Health Concerns Noted Time Assessment 03/05/2021 8:16 AM TOY CONSULTANT A fall risk assessment has been complet ed for the patient 12/07/2020 3:18 PM CDT PHQ-2 Depression Total Score: 2 documented as of this encounter Care Teams Start Date End Date Telegraph Repeater Installer Relationship Specialty 05/15/20 Garfield Gray MD PCP - [address] [phone] 06/13/20 Riley Hopson MD Consulting Cardiovascul [address] Physician ar Disease [address] [place] [address] 12/20/20 Gino Pandya, GENERAL MAINTENANCE MECHANIC-PROGRAM EVALUATOR Nurse Nurse [address] [address] 01/19/21 Teri Brandon Continuum of Care Case Management documented as of this encounter
--- OUTSIDE RECORDS SUMMARY | 2021-03-11 12:17 | XMS REPORT | Encounter Summary ---
Author Author [facility] Organization [facility] Address Unknown Phone Unavailable Care Team Providers Care Floral Designer Name Role Phone Self, Garfield OLVERA PCP Riley Hopson MD [phone] Gino Pandya DIRECTOR OF RETAIL ANALYTICS-GRAIN MILL WORKER [phone] Teri Brandon [phone] Unavailable Encounter Details Care Team Description Date Type Department 02/19/2021 Travel Social History Date Tobacco Use Types Packs/Day Years Used Never Smoker Smokeless Tobacco: Never Used Comments Alcohol Use Standard Drinks/Week Not Currently 0 (1 standard drink = 0.6 o z pure alcohol) Sex Assigned at Date Recorded Female 06/01/2020 1:44 PM APARTMENT MAINTENANCE Date Recorded COVID-19 Exposure Response 02/19/2021 7:52 AM APARTMENT MAINTENANCE In the last month, have you been [...] Date Type Specialty Carlos Longo MD 4000 [facility]600 [place] [address] [place] [address], [address] [place] [phone] 03/22/2021 Hospital Radiology Encounter Jacob Almaraz MD [address], [address] [place] [phone] Nonrheumatic tricuspid valve regurgitati on 03/27/2021 Hospital Cardiology Encounter Jacob Almaraz MD [address], [address] [place] [phone] CATHETERIZATION RIGHT HEART 03/27/2021 Surgery Cardiology Date/Time Name Priority Associated Diagnose s 03/27/2021 9:05 AM APARTMENT MAINTENANCE CATHETERIZATION RIGHT HEART Nonrheumatic tricuspid valve regurgitation documented as of this encounter Goals Goal Patient Associated Recent Progress Patient-Stat Aut hor Goal Type Problems ed? Improve [facility] On track (10/23/2020 Yes Sheldon, 1:06 PM CDT) CHRYSTAL Singh [facility] On track (12/25/2020 Yes Sheldon, 2:41 PM CDT) CHRYSTAL Singh Note: "To get better and stronger." documented as of this encounter Visit Diagnoses Not on filedocumented in this encounter Additional Health Concerns Noted Time Assessment 02/19/2021 8:13 AM APARTMENT MAINTENANCE A fall risk assessment has been complet ed for the patient 12/07/2020 3:18 PM CDT PHQ-2 Depression Total Score: 2 documented as of this encounter Care Teams Start Date End Date Floral Designer Relationship Specialty 05/15/20 Garfield Gray MD PCP - General [address] [place] [address] 06/13/20 Riley Hopson MD Consulting Cardiovascul [address] Physician ar Disease [address] [place] [address] 12/20/20 Gino Pandya, DIRECTOR OF RETAIL ANALYTICS-GRAIN MILL WORKER Nurse Nurse [address] [place] [address] 01/19/21 Teri Brandon Continuum of Care Case Management documented as of this encounter
--- OUTSIDE RECORDS SUMMARY | 2021-03-11 12:17 | XMS REPORT | Encounter Summary ---
Author Author [facility] Organization [facility] Address Unknown Phone Unavailable Care Team Providers Care Dairy Powder Mixer Operator Name Role Phone Self, Garfield OLVERA PCP Riley Hopson MD [phone] Gino Pandya APRN-DESK LIEUTENANT [phone] Teri Brandon [phone] Unavailable Reason for Visit * Reason Comments Anticoagulation INR 6.3 Encounter Details Care Team Description Date Type Department Josi Purvis BSN Anticoagulation (INR 6.3) 03/05/2021 Anticoagulation Cardiology: [facility] [address] [place] [address] 1, [address] [place] [address] Social History Date Tobacco Use Types Packs/Day Years Used Never Smoker Smokeless Tobacco: Never Used Comments Alcohol Use Standard Drinks/Week Not Currently 0 (1 standard drink = 0.6 o z pure alcohol) Sex Assigned at Date Recorded Female 06/01/2020 1:44 PM DIRECTOR TRADE Date Recorded COVID-19 Exposure Response 03/05/2021 8:08 AM DIRECTOR TRADE In the last month, have you been [...] Date Type Specialty Carlos [facility] MD [address] [facility] [place] [address] [place] [address], [address] [place] [phone] 03/22/2021 Hospital Radiology Encounter Jacob Almaraz MD [address], [address] [place] [phone] Nonrheumatic tricuspid valve regurgitati on 03/27/2021 Hospital Cardiology Encounter Jacob Almaraz MD [address], [address] [place] [phone] CATHETERIZATION RIGHT HEART 03/27/2021 Surgery Cardiology Date/Time Name Priority Associated Diagnose s 03/27/2021 9:05 AM DIRECTOR TRADE CATHETERIZATION RIGHT HEART Nonrheumatic tricuspid valve regurgitation documented as of this encounter Goals Goal Patient Associated Recent Progress Patient-Stat Aut hor Goal Type Problems ed? [facility] On track (10/23/2020 Yes Sheldon, 1:06 PM CDT) CHRYSTAL Singh [facility] On track (12/25/2020 Yes Sheldon, [...] Concerns Noted Time Assessment 03/05/2021 8:16 AM DIRECTOR TRADE A fall risk assessment has been complet ed for the patient 12/07/2020 3:18 PM CDT PHQ-2 Depression Total Score: 2 documented as of this encounter Care Teams Start Date End Date Dairy Powder Mixer Operator Relationship Specialty 05/15/20 Garfield Gray MD PCP - [address] [address] 06/13/20 Riley Hopson MD Consulting Cardiovascul [address] Physician ar Disease [address] [place], [place] [address] 12/20/20 Gino Pandya, BILINGUAL TRAINER-DESK LIEUTENANT Nurse Nurse [address] [place] [address] 01/19/21 Teri Brandon Continuum of Care Case Management documented as of this encounter
--- OUTSIDE RECORDS SUMMARY | 2021-03-11 12:17 | XMS REPORT | Encounter Summary ---
Author Author [facility] Organization [facility] Address Unknown Phone Unavailable Care Team Providers Care Analysis Director Name Role Phone Self, Garfield OLVERA PCP Riley Hopson MD [phone] Gino Pandya APRN-UNIVERSAL GRINDER OPERATOR [phone] Teri Brandon [phone] Unavailable Reason for Visit * Reason Onset Date Comments Medication Refill 02/21/2021 Encounter Details Care Team Description Date Type Department Fernie Camargo LPN Medication Refill 02/21/2021 Refill Cardiology: [facility] [address] [place] [address], [address] [place] [address] Social History Date Tobacco Use Types Packs/Day Years Used Never Smoker Smokeless Tobacco: Never Used Comments Alcohol Use Standard Drinks/Week Not Currently 0 (1 standard drink = 0.6 o z pure alcohol) Sex Assigned at Date Recorded Female 06/01/2020 1:44 PM SPOUT WORKER Date Recorded COVID-19 Exposure Response 02/19/2021 7:52 AM SPOUT WORKER In the last month, have you been [...] Date End Date Prescription Sig Dispensed Refills 02/21/2021 spironolactone Take three 540 tablet 3 (ALDACTONE) 25 mg tablet tablets by mouth twice daily. Take with food. documented in this encounter Miscellaneous Notes * Telephone Encounter - Fernie Camargo LPN - 02/21/2021 10:10 AM SPOUT WORKER Med list updated to reflect what was prescribed and what pt is taking. Per 01/11 OV with Berna Madison APRN: "1. Recommendations: - Increase spironolactone 75mg twice daily." T WORKER documented in this encounter Plan of Treatment Care Team Description Date Type Specialty Carlos Longo MD 4000 [facility]600 [place] [address] [place] [address], [address] [place] [phone] 03/22/2021 [facility] Radiology Encounter Jacob Almaraz [place] [address], [address] [place] [phone] Nonrheumatic tricuspid valve regurgitati on 03/27/2021 Hospital Cardiology Encounter Jacob Almaraz MD [address], [address] [place] [phone] CATHETERIZATION RIGHT HEART 03/27/2021 Surgery Cardiology Date/Time Name Priority Associated Diagnose s 03/27/2021 9:05 AM SPOUT WORKER CATHETERIZATION RIGHT HEART Nonrheumatic tricuspid valve regurgitation documented as of this encounter Goals Goal Patient Associated Recent Progress Patient-Stat Aut hor Goal Type Problems ed? Improve [facility] On track (10/23/2020 Yes Sheldon, 1:06 PM CDT) CHRYSTAL Singh [facility] On track (12/25/2020 Yes Sheldon, 2:41 PM CDT) CHRYSTAL Singh Note: "To get better and stronger." documented as of this encounter Visit Diagnoses Not on filedocumented in this encounter Discontinued Medications Start Date End Date Medication Sig Discontinue Reason 01/11/2021 02/21/2021 spironolactone Take three Reorder (ALDACTONE) 25 mg tablet tablets by mouth daily. Take with food. documented as of this encounter Additional Health Concerns Noted Time Assessment 02/19/2021 8:13 AM SPOUT WORKER A fall risk assessment has been complet ed for the patient 12/07/2020 3:18 PM CDT PHQ-2 Depression Total Score: 2 documented as of this encounter Care Teams Start Date End Date Analysis Director Relationship Specialty 05/15/20 Garfield Gray MD PCP - [address] [phone] 06/13/20 Riley Hopson MD Consulting Cardiovascul [address] Physician ar Disease [address] [place], [place] [address] 12/20/20 Gino Pandya, MEAT SEAFOOD ASSOCIATE-UNIVERSAL GRINDER OPERATOR Nurse Nurse [address] [place] [address] 01/19/21 Teri Brandon Continuum of Care Case Management documented as of this encounter
--- OUTSIDE RECORDS SUMMARY | 2021-03-11 12:17 | XMS REPORT | Encounter Summary ---
Author Author [facility] Organization [facility] Address Unknown Phone Unavailable Care Team Providers Care Commuter Pilot Name Role Phone Self, Garfield OLVERA PCP iRley Hopson MD [phone] Gino Pandya APRN-YIELD ENGINEER [phone] Teri Brandon [phone] Unavailable Reason for Visit * Reason Comments Lab Results Encounter Details Care Team Description Date Type Department Fernie Camargo LPN Lab Results 02/09/2021 Documentation Cardiology: [facility] [address] [facility] [address] 1, [address] [place] [address] Social History Date Tobacco Use Types Packs/Day Years Used Never Smoker Smokeless Tobacco: Never Used Comments Alcohol Use Standard Drinks/Week Not Currently 0 (1 standard drink = 0.6 o z pure alcohol) Sex Assigned at Date Recorded Female 06/01/2020 1:44 PM BRANCH EMPLOYMENT COORDINATOR Date Recorded COVID-19 Exposure Response 02/06/2021 9:16 AM BRANCH EMPLOYMENT COORDINATOR In the last month, have you been [...] Date Type Specialty Carlos Longo MD 4000 [facility] [address] [place] [address] [place] [address], [address] [place] [phone] 03/22/2021 Hospital Radiology [place]counter Jacob Almaraz [place] [address], [address] [place] [phone] Nonrheumatic tricuspid valve regurgitati on 03/27/2021 Hospital Cardiology [place]counter [place] [address], [address] [place] [phone] CATHETERIZATION RIGHT HEART 03/27/2021 Surgery Cardiology Date/Time Name Priority Associated Diagnose s 03/27/2021 9:05 AM BRANCH EMPLOYMENT COORDINATOR CATHETERIZATION RIGHT HEART Nonrheumatic tricuspid valve regurgitation documented as of this encounter Goals Goal Patient Associated Recent Progress Patient-Stat Aut hor Goal Type Problems ed? Improve [facility] On track (10/23/2020 Yes Sheldon, 1:06 PM CDT) CHRYSTAL Singh [facility] On track (12/25/2020 Yes Sheldon, 2:41 PM CDT) CHRYSTAL Singh Note: "To get better and stronger." documented as of this encounter Procedures Comments Procedure Name Priority Date/Time Associated Diag nosis HOME INR Routine 02/09/2021 documented in this encounter Results * HOME INR (02/09/2021) INR Home 1.5 OTHER OUTSIDE LAB Specimen Performing Organization Address City/State/ZIP Code P shane Number OTHER OUTSIDE LAB documented in this encounter Visit Diagnoses Not on filedocumented in this encounter Additional Health Concerns Noted Time Assessment 02/06/2021 9:31 AM BRANCH EMPLOYMENT COORDINATOR A fall risk assessment has been complet ed for the patient 12/07/2020 3:18 PM CDT PHQ-2 Depression Total Score: 2 documented as of this encounter Care Teams Start Date End Date Commuter Pilot Relationship Specialty 05/15/20 Garfield Gray MD PCP - [address] [place] [address] 06/13/20 Riley Hopson MD Consulting Cardiovascul [address] Physician ar Disease [address] [place] [address] 12/20/20 Gino Pandya APRN-YIELD ENGINEER Nurse Nurse [address] [place] [address] 01/19/21 Teri Brandon Continuum of Care Case Management documented as of this encounter
--- OUTSIDE RECORDS SUMMARY | 2021-03-11 12:17 | XMS REPORT | Encounter Summary ---
Author Author [facility] Organization [facility] Address Unknown Phone Unavailable Care Team Providers Care Afternoon Babysitter Name Role Phone Self, Garfield OLVERA PCP Riley Hopson MD [phone] Gino Pandya LICENSED MORTGAGE LOAN OFFICER-AIRCRAFT POWERPLANT REPAIRER [phone] Teri Brandon [phone] Unavailable Reason for Visit * Reason Comments Labs Only INR Encounter Details Care Team Description Date Type Department Rentz, Beckie Labs Only (INR) 02/05/2021 Documentation Cardiology: [facility] 4000 [facility] [address] 1, [address] [place] [address] Social History Date Tobacco Use Types Packs/Day Years Used Never Smoker Smokeless Tobacco: Never Used Comments Alcohol Use Standard Drinks/Week Not Currently 0 (1 standard drink = 0.6 o z pure alcohol) Sex Assigned at Date Recorded Female 06/01/2020 1:44 PM TEARER Date Recorded COVID-19 Exposure Response 01/23/2021 1:48 PM CDT In the last month, have you been in contact with No / Unsure someone who was confirmed or suspected to have Coronavirus / COVID-19? documented as of this encounter Functional Status Date of Assessment Functional Status Response 01/11/2021 Does the patient have a hearing impairment: No 01/11/2021 Does the patient have a visual impairment: Yes 01/11/2021 Does the patient have impaired ambulation: Yes 01/11/2021 Does the patient have an activity of daily living No (ADL) impairment: 01/11/2021 Does the patient have an instrumental activity of No daily living (IADL) impairment: Date of Assessment Cognitive Status Response 01/11/2021 Does the patient have a cognitive impairment: No documented as of this encounter Plan of Treatment Care Team Description Date Type Specialty Carlos Longo MD 4000 [facility] [address] [place] [address] [place] [address], [address] [place] [address] 03/22/2021 Hospital Radiology [place]counter [place] Almaraz [place] [address], [address] [place] [phone] Nonrheumatic tricuspid valve regurgitati on 03/27/2021 Hospital Cardiology Encounter Jacob Almaraz MD [address], [address] [place] [phone] CATHETERIZATION RIGHT HEART 03/27/2021 Surgery Cardiology Date/Time Name Priority Associated Diagnose s 03/27/2021 9:05 AM TEARER CATHETERIZATION RIGHT HEART Nonrheumatic tricuspid valve regurgitation documented as of this encounter Goals Goal Patient Associated Recent Progress Patient-Stat Aut hor Goal Type Problems ed? Improve [facility] On track (10/23/2020 Yes Sheldon, 1:06 PM CDT) CHRYSTAL Singh [facility] On track (12/25/2020 Yes Sheldon, 2:41 PM CDT) CHRYSTAL Singh Note: "To get better and stronger." documented as of this encounter Procedures Comments Procedure Name Priority Date/Time Associated Diag nosis PROTIME INR (PT) Routine 02/05/2021 Chronic heart failure with preserved ejection fraction (HCC) documented in this encounter Results * PROTIME INR (PT) (02/05/2021) INR 2.0 [facility] Specimen Blood - Blood Narrative Performing Organization Address City/State/ZIP Code P shane Number [facility] [address] [place] [address] documented in this encounter Visit Diagnoses Diagnosis Chronic heart failure with preserved ej ection fraction (HCC) Nonrheumatic tricuspid valve regurgitat ion Tricuspid valve disorders, specified as nonrheumatic documented in this encounter Additional Health Concerns Noted Time Assessment 02/02/2021 2:24 PM TEARER A fall risk assessment has been complet ed for the patient 12/07/2020 3:18 PM CDT PHQ-2 Depression Total Score: 2 documented as of this encounter Care Teams Start Date End Date Afternoon Babysitter Relationship Specialty 05/15/20 Garfield Gray MD PCP - [address] [address] 06/13/20 Riley Hopson MD Consulting Cardiovascul [address] [place] [address] Physician ar Disease [address] [place] [address] 12/20/20 Gino Pandya, RYAN-AIRCRAFT POWERPLANT REPAIRER Nurse Nurse 4000 [facility] Practitioner Practitioner [facility]1100 [place], [place] [phone] 01/19/21 Teri Brandon Continuum of Care Case Management documented as of this encounter
--- OUTSIDE RECORDS SUMMARY | 2021-03-11 12:17 | XMS REPORT | Encounter Summary ---
Author Author [facility] Address Unknown Phone Unavailable Care Team Providers Care Morning Show Host Name Role Phone Self, Garfield OLVERA PCP Riley Hopson MD [phone] Gino Pandya APRN-GUEST LAUNDRY ATTENDANT [phone] Teri Brandon [phone] Unavailable Reason for Referral * Consult, Test & Treat (Routine) - Closed Diagnoses / Procedures Referred By Contact Referred To Conta ct Specialty Diagnoses Other cirrhosis of liver (HCC) Severe malnutrition (HCC) Stage 3b chronic kidney disease (HCC) Acute kidney injury superimposed on CKD (HCC) Carlos Longo MD [address] [facility] [id number] [place] [address] [facility] Gen Hepatology Cl [address] [facility] [address], [address] [place] [address] Hepatology Referral ID Status Reason Start Date Expiration Visits Vi sits Date Requested Authorized [id number] Closed Specialty Services 03/05/2021 03/05/2022 1 1 Required Comments Please see Dr Miller Re: Histopath-per Dr Carlos Longo RANCE ACCOUNT EXECUTIVE Encounter Details Care Team Description Date Type Department Sherin Mata BSN Other cirrhosis of liver (HCC) (Primary Dx); Severe malnutrition (HCC); Stage 3b chronic kidney disease (HCC); Acute kidney injury superimposed on CKD (HCC) 03/05/2021 Orders Only [facility] [address] [place] [address] Social History Date Tobacco Use Types Packs/Day Years Used Never Smoker Smokeless Tobacco: Never Used Comments Alcohol Use Standard Drinks/Week Not Currently 0 (1 standard drink = 0.6 o z pure alcohol) Sex Assigned at Date Recorded Female 06/01/2020 1:44 PM INSURANCE ACCOUNT EXECUTIVE Date Recorded COVID-19 Exposure Response 03/05/2021 8:08 AM INSURANCE ACCOUNT EXECUTIVE In the last month, have you been [...] Progress Notes * Sherin Mata BSN - 03/05/2021 10:32 AM INSURANCE ACCOUNT EXECUTIVE Images from the original note were not included. Carlos Longo MD I am okay with continuation of 75 mg twice daily of spironolactone. She is getting frequent paracentesis, she has her issues driven predominantly by liver but certainly heart failure is contributing significantly. I would also request the patient to be scheduled to be seen with Dr. Miller for histopathology expertise RANCE ACCOUNT EXECUTIVE documented in this encounter Plan of Treatment Care Team Description Date Type Specialty Carlos Longo MD [address] [facility] [id number] [place] [address] [place] [address] [place] [phone] 03/22/2021 Hospital Radiology [place] [address] [place] [address] Nonrheumatic tricuspid valve regurgitati on 03/27/2021 Hospital Cardiology [place]counter Jacob Almaraz MD [address] [place] [address] CATHETERIZATION RIGHT HEART 03/27/2021 Surgery Cardiology Date/Time Name Priority Associated Diagnose s 03/27/2021 9:05 AM INSURANCE ACCOUNT EXECUTIVE CATHETERIZATION RIGHT HEART Nonrheumatic tricuspid valve regurgitation Order Schedule Name Type Priority Associated Diag noses Ordered: 03/05/2021 AMB REFERRAL TO Outpatient Routine Other cirrhosi s of liver HEPATOLOGY Referral (HCC) Severe malnutrition (HCC) Stage 3b chronic kidney disease (HCC) Acute kidney injury superimposed on CKD (HCC) documented as of this encounter Goals Goal Patient Associated Recent Progress Patient-Stat Aut hor Goal Type Problems ed? Improve [facility] On track (10/23/2020 Yes Sheldon, 1:06 PM CDT) CHRYSTAL Singh [facility] On track (12/25/2020 Yes Sheldon, 2:41 PM CDT) CHRYSTAL Singh Note: "To get better and stronger." documented as of this encounter Visit Diagnoses Diagnosis Other cirrhosis of liver (HCC) - Primar y Severe malnutrition (HCC) Nutritional marasmus Stage 3b chronic kidney disease (HCC) Acute kidney injury superimposed on CKD (HCC) Nonrheumatic tricuspid valve regurgitat ion Tricuspid valve disorders, specified as nonrheumatic documented in this encounter Additional Health Concerns Noted Time Assessment 03/05/2021 8:16 AM INSURANCE ACCOUNT EXECUTIVE A fall risk assessment has been complet ed for the patient 12/07/2020 3:18 PM CDT PHQ-2 Depression Total Score: 2 documented as of this encounter Care Teams Start Date End Date Morning Show Host Relationship Specialty 05/15/20 Garfield Gray MD PCP - [address] [address] 06/13/20 Riley Hopson MD Consulting Cardiovascul [address] Physician [address] Disease [address] [place] [address] 12/20/20 Gino Pandya, BLACK TOP RAKER-GUEST LAUNDRY ATTENDANT Nurse Nurse [address] [place] [phone] 01/19/21 Teri Brandon Continuum of Care Case Management documented as of this encounter
--- OUTSIDE RECORDS SUMMARY | 2021-03-11 12:17 | XMS REPORT | Encounter Summary ---
Author Author [facility] Organization [facility] Address Unknown Phone Unavailable Care Team Providers Care Healthcare Network Consultant Name Role Phone Self, Garfield OLVERA PCP Riley Hopson MD [phone] Gino Pandya APRN-SHOP CLERK [phone] Teri Brandon [phone] Unavailable Reason for Visit * Reason Onset Date Comments Abdomen Swelling 02/02/2021 Encounter Details Care Team Description Date Type Department Josi Purvis BSN Abdomen Swelling 02/02/2021 Telephone Cardiology: [facility] [address] [facility] [address], [address] [place] [address] Social History Date Tobacco Use Types Packs/Day Years Used Never Smoker Smokeless Tobacco: Never Used Comments Alcohol Use Standard Drinks/Week Not Currently 0 (1 standard drink = 0.6 o z pure alcohol) Sex Assigned at Date Recorded Female 06/01/2020 1:44 PM SPECIAL EFFECTS DESIGNER Date Recorded COVID-19 Exposure Response 01/23/2021 1:48 [...] Telephone Encounter - Josi Purvis BSN - 02/02/2021 5:33 PM SPECIAL EFFECTS DESIGNER Call topt per Basilia, pt will see Berna Madison on Tuesday 02/06 at 9:30 at [facility]#. MyChart message sent as well IAL EFFECTS DESIGNER * Telephone Encounter - Josi Purvis BSN - 02/02/2021 10:41 AM SPECIAL EFFECTS DESIGNER Call from [place] manager java she states they will do cystoscopy @ 1400 pt to kassie prado in @ 1345, then CT@ 1500 with paracentesis to follow @ 1600, pt updated, ve rb understanding, and information called to IR with schedule. Message sent to Basilia Gaitan with update IAL EFFECTS DESIGNER * Telephone Encounter - Josi Purvis BSN - 02/02/2021 10:23 AM SPECIAL EFFECTS DESIGNER Call to pt advised have FU with IR can do paracentesis @ 1600, working with bentley peng to modify appts so she can complete all needed testing. IAL EFFECTS DESIGNER documented in this encounter Plan of Treatment Care Team Description Date Type Specialty Carlos Longo MD [address] [facility] [address] [place] [address] [place] [address], [address] [place] [address] 03/22/2021 Hospital Radiology Encounter Jacob Almaraz [address] [place] [address] Nonrheumatic tricuspid valve regurgitati on 03/27/2021 Hospital Cardiology [place]counter [place] Almaraz [place] [address], [address] [place] [address] CATHETERIZATION RIGHT HEART 03/27/2021 Surgery Cardiology Date/Time Name Priority Associated Diagnose s 03/27/2021 9:05 AM SPECIAL EFFECTS DESIGNER CATHETERIZATION RIGHT HEART Nonrheumatic tricuspid valve regurgitation documented as of this encounter Goals Goal Patient Associated Recent Progress Patient-Stat Aut hor Goal Type Problems ed? Improve [facility] [facility] On track (10/23/2020 Yes Sheldon, 1:06 PM CDT) CHRYSTAL Singh [facility] On track (12/25/2020 Yes Sheldon, 2:41 PM CDT) CHRYSATL Singh Note: "To get better and stronger." documented as of this encounter Visit Diagnoses Not on filedocumented in this encounter Additional Health Concerns Noted Time Assessment 02/02/2021 2:24 PM SPECIAL EFFECTS DESIGNER A fall risk assessment has been complet ed for the patient 12/07/2020 3:18 PM CDT PHQ-2 Depression Total Score: 2 documented as of this encounter Care Teams Start Date End Date Healthcare Network Consultant Relationship Specialty 05/15/20 Garfield Gray MD PCP - [address] [phone] 06/13/20 Riley Hopson MD Consulting Cardiovascul [address] Physician [address] Disease [address] [place], [place] [phone] 12/20/20 Gino Pandya APRN-SHOP CLERK Nurse Nurse [address] [place] [phone] 01/19/21 Teri Brandon Continuum of Care Case Management documented as of this encounter
--- OUTSIDE RECORDS SUMMARY | 2021-03-11 12:17 | XMS REPORT | Encounter Summary ---
Author Author [facility] Organization [facility] Address Unknown Phone Unavailable Care Team Providers Care Reinsurance Claim Analyst Name Role Phone Self, Garfield OLVERA PCP Riley Hopson MD [phone] Gino Pandya REGULATORY AGENCY DIRECTOR-TUGBOAT CAPTAIN [phone] Teri Brandon [phone] Unavailable Reason for Referral * Radiology Services (Routine) - Authorized Diagnoses / Procedures Referred By Contact Referred To Conta ct Specialty Diagnoses Chronic heart failure with preserved ejection fraction (HCC) RVF (right ventricular failure) (HCC) Other cirrhosis of liver (HCC) Procedures IR PARACENTESIS THERAPEUTIC Carlos Longo MD [address] [address] [place] [place] [address] [place] [address] Radiology Referral ID Status Reason Start Date Expiration Visits Vi sits Date Requested Authorized [id number] Authorized 01/22/2021 01/22/2022 20 20 F UNIT FORESTER Reason for Visit * Radiology Services (Routine) - Authorized Diagnoses / Procedures Referred By Contact Referred To Conta ct Specialty Diagnoses Chronic heart failure with preserved ejection fraction (HCC) RVF (right ventricular failure) (HCC) Other cirrhosis of liver (HCC) Procedures IR PARACENTESIS THERAPEUTIC Carlos Longo MD [address] [place] [address] [address] [place] [address] [place] [address] Radiology Referral ID Status Reason Start Date Expiration Visits Vi sits Date Requested Authorized [id number] Authorized 01/22/2021 01/22/2022 20 20 Encounter Details Care Team Description [place] [address], [address] [place] [phone] Willow Sue, RN Jeanette Kingston, RT(R)(),LRT Chronic heart failure with preserved eje ction fraction (HCC) 02/19/2021 Hospital Interventional Radi ology: Encounter [facility] [address] [place] [address] Social History Date Tobacco Use Types Packs/Day Years Used Never Smoker Smokeless Tobacco: Never Used Comments Alcohol Use Standard Drinks/Week Not Currently 0 (1 standard drink = 0.6 o z pure alcohol) Sex Assigned at Date Recorded Female 06/01/2020 1:44 PM CHIEF UNIT FORESTER Date Recorded COVID-19 Exposure Response 02/19/2021 7:52 AM CHIEF UNIT FORESTER In the last month, have you been in contact with No / Unsure someone who was confirmed or suspected to have Coronavirus / COVID-19? documented as of this encounter Last Filed Vital Signs Reading Time Taken Comments Vital Sign 113/56 02/19/2021 10:30 AM CHIEF UNIT FORESTER Blood Pressure 124 02/19/2021 10:30 AM CHIEF UNIT FORESTER Pulse 36.5 C (97.7 F) 02/19/2021 8:15 AM CHIEF UNIT FORESTER Temperature - - Respiratory Rate 96% 02/19/2021 10:15 AM CHIEF UNIT FORESTER Oxygen Saturation - - Inhaled Oxygen Concentration 61.6 kg (135 lb 12.8 oz) 02/19/2021 8:15 AM CHIEF UNIT FORESTER Weight 157.5 cm (5' 2") 02/19/2021 8:15 AM CHIEF UNIT FORESTER Height 24.84 02/19/2021 8:15 AM CHIEF UNIT FORESTER Body Mass Index documented in this encounter [...] tablet 0 tablet tablets by mouth daily. 01/11/2021 02/21/2021 spironolactone Take three 274 tablet 3 (ALDACTONE) 25 mg tablet tablets by mouth daily. Take with food. documented as of this encounter Discharge Disposition Code Departure Means Destination Disposition Car Home or Self Care documented in this encounter Progress Notes * Claudia Crenshaw, RN - 02/19/2021 10:47 AM CHIEF UNIT FORESTER Pt asymptomatic with Afib. Rates down to 120-125. Call placed to Dr Castañeda offic e and message sent to Dr Longo per voilte. No call back received. Spoke with annalise jimenez . He states that she always has a HR this high. He declined need fo r further intervention. Instructed him and the patient to call and follow-up wit h Dr Longo and to return to the ER if she becomes symptomatic with elevated hear t rates. Dr Nelson aware. F UNIT FORESTER * Willow Sue, CHRYSTAL - 02/19/2021 9:19 AM CHIEF UNIT FORESTER Patient's heart rate increased to 130s from previous 80s once patient was placed in procedure room. Patient was placed on the heart monitor. Patient in A-fib without any symptoms during heart rate change. Patient denying SOA, dizziness, heart racing. Patient's medications reviewed with patient and yudelka bueno verbalized she follows with Dr. Longo for her heart management and is usua lly is A-fib. F UNIT FORESTER documented in this encounter H&P Notes * Scout Nelson MD - 02/19/2021 7:58 AM CHIEF UNIT FORESTER Pre Procedure History and Physical/Sedation Plan Procedure Date: 02/19/2021 Planned Procedure(s): paracentesis Indication for exam: ascites Chief Complaint: As above History of Present Illness: Zaria Paulson is a 61 y.o. female. Pt presents to IR for above procedure. Overall, feels uncahnged today from previous. Please see most recent clinic visit for full HPI. Patient Active Problem List Diagnosis Date Noted Fall 2021 Acute kidney injury superimposed on CKD (HCC) 01/02/2021 Severe malnutrition (HCC) 12/27/2020 Severe sepsis (HCC) 12/22/2020 Acute on chronic diastolic (congestive) heart failure (HCC) 12/10/2020 RVF (right ventricular failure) (HCC) 11/30/2020 Hyponatremia 11/30/2020 Acute on chronic [...] 06/06/2020 Performed by Bao Hernández MD at [facility] ENDO COLONOSCOPY DIAGNOSTIC WITH SPECIMEN COLLECTION BY BRUSHING/ WASHING - FLEXI BLE N/A 06/06/2020 Performed by Bao Hernández MD at [facility] ENDO ANGIOGRAPHY CORONARY ARTERY WITH RIGHT AND LEFT HEART CATHETERIZATION N/A Performed by Higinio Clarke MD at [facility] POSSIBLE PERCUTANEOUS CORONARY STENT PLACEMENT WITH ANGIOPLASTY N/A Performed by Higinio Clarke MD at [facility] ESOPHAGOGASTRODUODENOSCOPY WITH SPECIMEN COLLECTION BY BRUSHING/ WASHING N/A 10/21/2020 Performed by Cosmo Gomez MD at [facility] ENDO SIGMOIDOSCOPY WITH CONTROL OF BLEEDING - FLEXIBLE N/A 10/21/2020 Performed by Cosmo Gomez MD at [facility] ENDO SIGMOIDOSCOPY WITH DIRECTED SUBMUCOSAL INJECTION - FLEXIBLE 10/21/2020 Performed by Cosmo Gomez MD at [facility] ENDO ESOPHAGOGASTRODUODENOSCOPY WITH CONTROL OF BLEEDING - FLEXIBLE N/A Performed by Bao Hernández MD at [facility] Medications Prior to Admission Medication Sig Dispense Refill Last Dose bumetanide (BUMEX) 1 mg tablet Take five tablets by mouth twice daily for 36 0 days. 900 tablet 3 calcium carbonate (OS-KRUPA) 1250 mg tablet Take 1,250 mg by mouth daily. empagliflozin (JARDIANCE) 10 mg tablet Take one tablet by mouth daily. 90 ta blet 3 ergocalciferol (VITAMIN D-2) 1,250 mcg (50,000 [...] three times d aily. 270 tablet 3 oxybutynin chloride (DITROPAN) 5 mg tablet Take one tablet by mouth daily. [address] (PROTONIX) 40 mg tablet Take 40 mg by mouth twice daily. sertraline (ZOLOFT) 100 mg tablet Take one tablet by mouth twice daily. 180 tablet 0 spironolactone (ALDACTONE) 25 mg tablet Take three tablets by mouth daily. T loretta with food. (Patient taking differently: Take 75 mg by mouth twice daily. Aaron e with food.) 274 tablet 3 VASCEPA 1 gram capsule TAKE [...] Onset COPD Mother Review of Systems A 14 point review of systems was negative except for: abdominal distention, fati zuleyma and abdominal pain Previous Anesthetic/Sedation History: none Code Status: Prior Allergies: Patient has no known allergies. Medications: Scheduled Meds:Continuous Infusions: PRN and Respiratory Meds: Vital Signs: Last Filed Vital Signs: 24 Hour Range Pre-procedure anxiolysis plan: Other Sedation/Medication Plan: Lidocaine Personal history of sedation complications: Denies adverse event. Family history of sedation complications: Denies adverse event. Medications for Reversal: None Discussion/Reviews: Physician has discussed risks and alternatives of this type of sedation and above planned procedures with patient NPO Status: Acceptable Airway: airway assessment performed Mallampati II (soft palate, uvula, fauces visible) Head and Neck: no abnormalities noted Mouth: no abnormalities noted Anesthesia Classification: ASA II (A normal patient with mild systemic disease) Status: N/A Lab/Radiology/Other Diagnostic Tests Labs: 24-hour labs: No results found for this visit on 02/19/21 (from the past 24 hour(s)). I have examined the patient, and there are no significant changes in their condi tion, from the previous H&P performed on 02/12/21. Scout Nelson MD Pager [phone] F UNIT FORESTER documented in this encounter Procedure Notes * Scout Nelson MD - 02/19/2021 9:18 AM CHIEF UNIT FORESTER Immediate Post Procedure Note Date: 02/19/2021 Attending Physician: Scout Nelson MD Procedure(s): paracentesis Indications: ascites Findings: Cloudy fluid Anesthesia: Local Sedation/Medication Plan: Lidocaine Time out performed: Consent obtained, correct patient verified, correct procedur e verified, correct site verified, patient marked as necessary. Estimated Blood Loss: None/Negligible Specimen(s) Removed/Disposition: Yes, sent to pathology Complications: None Comments: Tolerated well Scout Nelson MD F UNIT FORESTER documented in this encounter Miscellaneous Notes * Patient Instructions - Claudia Crenshaw RN - 02/19/2021 8:17 AM CHIEF UNIT FORESTER Images from the original note were not [...] to the procedu re performed at the [place] Location, call [phone] Friday-Friday from 7 -5p. After-hours and weekends, please call [phone] and ask for the [facility] [employer] Wireman on-call. You or your caregiver should call [phone] for any severe symptoms such as excessive bleeding, severe dizziness, trouble breathing or loss of consciousness. F UNIT FORESTER documented in this encounter Plan of Treatment Care Team Description Date Type Specialty Carlos Longo MD 4000 [facility] [place] [address] [place] [address], [address] [place] [address] 03/22/2021 Hospital Radiology Encounter Jacob Almaraz [address], [address] [place] [phone] Nonrheumatic tricuspid valve regurgitati on 03/27/2021 Hospital Cardiology [place]counter [place] Almaraz [place] [address], [address] [place] [phone] CATHETERIZATION RIGHT HEART 03/27/2021 Surgery Cardiology Date/Time Name Priority Associated Diagnose s 03/27/2021 9:05 AM CHIEF UNIT FORESTER CATHETERIZATION RIGHT HEART Nonrheumatic tricuspid valve regurgitation [...] Date/Time Associated Diag nosis IR PARACENTESIS Routine 02/19/2021 Chronic heart failure THERAPEUTIC 9:50 AM CHIEF UNIT FORESTER with preserved ejec tion fraction (HCC) RVF (right ventricular failure) (HCC) Other cirrhosis of liver (HCC) HC PT(INR) Routine 02/19/2021 Paroxysmal atri al 8:19 AM CHIEF UNIT FORESTER fibrillation (HCC) documented in this encounter Results * IR PARACENTESIS THERAPEUTIC (02/19/2021 9:50 AM CHIEF UNIT FORESTER) Modality Anatomical Region Laterality Ultrasound Specimen Impressions [facility] RESULTS - 02/19/2021 10:05 AM CHIEF UNIT FORESTER 1. Successful ultrasound guided parace ntesis. Finalized by Scout Nelson M.D. on 02/19/2021 10:05 AM. Dictated by Scout Nelson M.D. on 02/19/2021 10:05 AM. Narrative [facility] RESULTS - 02/19/2021 10:05 AM CHIEF UNIT FORESTER Ultrasound-guided paracentesis CLINICAL INDICATION: Ascites MEDICATIONS: I was personally responsible for the administration of moderate sedation services during the procedure performed and I confirm requirements described in CPT section on moderate sedation were followed, including the use of an independent trained observer who had no other duties during the procedure. See nursing log for complete details; the drugs utilized were: subcutaneous Lidocaine 2% GROCERY CARRIER: Scout Nelson M.D. TECHNIQUE: Transverse real time images were obtained through the abdomen. The risks and benefits of this procedure were discussed and informed written consent was obtained prior to performing the procedure. The abdomen was then prepped and draped in usual sterile fashion. Limited ultrasound of the abdomen was performed. Under ultrasound guidance, a 5 Gibraltarian centesis needle was advanced into the peritoneal fluid collection and catheter advanced into the collection over the needle, and needle was removed. Images were sent to PACS. The catheter was connected to Vacutainer bottles and 6000 mL fluid was removed. There were no immediate complications of the procedure. No significant blood loss. Patient tolerated procedure well. FINDINGS: Free peritoneal fluid demonstrated on ultrasound. Procedure Note Scout Nelson MD - 02/19/2021 Ultrasound-guided paracentesis CLINICAL INDICATION: Ascites MEDICATIONS: I was personally responsible for the administration of moderate sedation services during the procedure performed and I confirm requirements described in CPT section on moderate sedation were followed, including the use of an independent trained observer who had no other duties during the procedure. See nursing log for complete details; the drugs utilized were: subcutaneous Lidocaine 2% GROCERY CARRIER: Scout Nelson M.D. TECHNIQUE: Transverse real time images were obtained through the abdomen. The risks and benefits of this procedure were discussed and informed written consent was obtained prior to performing the procedure. The abdomen was then prepped and draped in usual sterile fashion. Limited ultrasound of the abdomen was performed. Under ultrasound guidance, a 5 Gibraltarian centesis needle was advanced into the peritoneal fluid collection and catheter advanced into the collection over the needle, and needle was removed. Images were sent to PACS. The catheter was connected to Vacutainer bottles and 6000 mL fluid was removed. There were no immediate complications of the procedure. No significant blood loss. Patient tolerated procedure well. FINDINGS: Free peritoneal fluid demonstrated on ultrasound. IMPRESSION 1. Successful ultrasound guided paracen tesis. Finalized by Scout Nelson M.D. on 02/19/2021 10:05 AM. Dictated by Scout Nelson M.D. on 02/19/2021 10:05 AM. Performing Organization Address City/State/ZIP Code P shane Number [facility] RESULTS * (ABNORMAL) PROTIME INR (PT) (02/19/2021 8:19 AM CHIEF UNIT FORESTER) INR 1.4 (H) 0.8 - 1.2 MAIN LAB Specimen Blood Performing Organization Address City/State/ZIP Code P shane Number MAIN LAB [address] [place] [address] documented in this encounter Visit Diagnoses Diagnosis Chronic heart failure with preserved ej ection fraction (HCC) RVF (right ventricular failure) (HCC) Congestive heart failure, unspecified Other cirrhosis of liver (HCC) Paroxysmal atrial fibrillation (HCC) Atrial fibrillation Nonrheumatic tricuspid valve regurgitat ion Tricuspid valve disorders, specified as nonrheumatic documented in this encounter Administered Medications Action Date Dose Rate Site Medication Order MAR Action 02/19/2021 9:29 AM CHIEF UNIT FORESTER 37.5 g 200 mL/hr albumin 25% injection Given - New INTRA-PROCEDURE MED(CONT), Starting on Bag 02/19/21 at 0929, Until Fri 1 at 0929 documented in this encounter Active and Recently Administered Medications Times are shown in CHIEF UNIT FORESTER. 02/18/2021 02/19/2021 Medication Order 02/17/2021 0929 (Given - New Bag - Provider: Willow Sue RN) albumin 25% injection (COMPLETED) INTRA-PROCEDURE MED(CONT), Starting on 02/19/21 at 0929, Until Fri 1 at 0929 documented in this encounter Orders First Ordered Date Medications Ordered That Might Not Have Count Last Ordered Date Been Administered albumin 25% injection 1 02/19/2021 documented in this encounter Additional Health Concerns Noted Time Assessment 02/19/2021 8:13 AM CHIEF UNIT FORESTER A fall risk assessment has been complet ed for the patient 12/07/2020 3:18 PM CDT PHQ-2 Depression Total Score: 2 documented as of this encounter Care Teams Start Date End Date Reinsurance Claim Analyst Relationship Specialty 05/15/20 Garfield Gray MD PCP - General [address] [address] 06/13/20 Riley Hopson MD Consulting Cardiovascul [address] Physician ar Disease [address] [place] [address] 12/20/20 Gino Pandya, REGULATORY AGENCY DIRECTOR-TUGBOAT CAPTAIN Nurse Nurse [address] [place], [place] [id number] , [place] [address] 01/19/21 Teri Brandon Continuum of Care Case Management documented as of this encounter
--- OUTSIDE RECORDS SUMMARY | 2021-03-11 12:17 | XMS REPORT | Encounter Summary ---
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 Care Weighmaster Name Role Phone Self, Garfield OLVERA PCP Riley Hopson MD [phone] Gino Pandya NATIONAL OPELINT ANALYST-MOVEMENT ASSEMBLY FINAL INSPECTOR [phone] Teri Brandon [phone] Unavailable Reason for Visit * Radiology Services (Routine) - Authorized Diagnoses / Procedures Referred By Contact Referred To Conta ct Specialty Diagnoses Other ascites Procedures IR PARACENTESIS THERAPEUTIC Basilia Gaitan, NATIONAL OPELINT ANALYST-MOVEMENT ASSEMBLY FINAL INSPECTOR 4000 [facility] [id number] [place] [address] [facility] Ir 4000 [facility] [address], [id number] [place] [address] Radiology Referral ID Status Reason Start Date Expiration Visits Vi sits Date Requested Authorized [id number] Authorized 12/20/2020 12/20/2021 1 1 Encounter Details Care Team Description Date Type Department Basilia Gaitan, NATIONAL OPELINT ANALYST-MOVEMENT ASSEMBLY FINAL INSPECTOR 4000 [facility] [id number] [place] [address] Jose Jovel MD [address] [address] Shae Lino, RT(R)(),LRT Canceled (Patient-Rescheduled) 02/06/2021 Hospital Interventional Radi ology: Encounter Desean ChavezMaritza [facility] [address] [place] [phone] Social History Date Tobacco Use Types Packs/Day Years Used Never Smoker Smokeless Tobacco: Never Used Comments Alcohol Use Standard Drinks/Week Not Currently 0 (1 standard drink = 0.6 o z pure alcohol) Sex Assigned at Date Recorded Female 06/01/2020 1:44 PM WATCH AND CLOCK MAKER AND REPAIRER Date Recorded COVID-19 Exposure Response 02/06/2021 9:16 AM WATCH AND CLOCK MAKER AND REPAIRER In the last month, have you been [...] tablet tablets by mouth three times daily. pantoprazole DR [...] by unit) capsule mouth every 7 days. 11/15/2020 02/12/2021 oxybutynin chloride Take one 180 tablet 0 (DITROPAN) 5 mg tablet tablet by mouth three times daily. 01/11/2021 02/21/2021 spironolactone Take three 274 tablet 3 (ALDACTONE) 25 mg tablet tablets by mouth daily. Take with food. documented as of this encounter Discharge Disposition Code Departure Means Destination Disposition Home Home or Self Care documented in this encounter Progress Notes * Brigitte Hinojosa RN - 02/06/2021 11:00 AM WATCH AND CLOCK MAKER AND REPAIRER Interventional Radiology Outpatient Scheduling Checklist 1. Name of Procedure(s): Paracentesis 2. Date of Procedure: 02/06/21 & 02/20/21 3. Arrival Time: 1000 4. Procedure Time: 1100 5. Correct Procedural Room Assignment: [facility] Room 6. Blood Thinners Triaged and instructed per protocol: Y/N/NA: Yes. Pt is t aking Warfarin and was instructed to continue taking per protocol. Confirmed accurate instructions sent to patient: Y/N: NA 7. Procedure Order Verified: Y/N: Yes 9. Patient instructed to have a forklift driver: Y/N/NA: Yes 10. Patient instructed on NPO status: Y/N/NA: NA Confirmed accurate instructions sent to patient: Y/N: Yes 11. Specimen needed: Y/N/NA: Yes Verified Order placed: Y/N: Yes 12. Allergies Verified: Y/N: Yes 13. Is there an Iodine Allergy: Y/N: No Does the Procedure Require contrast: Y/N: Yes If so, was the IR- Contrast Allergy Pre-Procedure Medication protocol ordered: Y /NA: NA 14. Does the patient have labs according to IR Pre-procedure Laboratory Paramet er policy: Y/N/NA: NO If No, was the patient instructed to [...] Yes; my chart documented in this encounter Miscellaneous Notes * Patient Education - Brigitte Hinojosa RN - 02/06/2021 11:00 AM WATCH AND CLOCK MAKER AND REPAIRER Dear Ms. Paulson, Thank you for choosing [facility] Interventional Rad iology for your procedure. Your appointment information is listed below: Appointment Date: 02/06/21 & 02/20/21 Appointment Time: 11:00 AM Arrival Time: 10:00 AM Location: ? Main [place]: [address] [place] [address] Parking: P3 Parking Garage Check-in at Admissions Desk in Lobby INTERVENTIONAL RADIOLOGY PRE-PROCEDURE INSTRUCTIONS LOCAL You are [...] Type Specialty Carlos Longo MD 4000 [facility] [place] [address] [place] [address], [address] [place] [phone] 03/22/2021 Hospital Radiology [place]counter Jacob Almaraz [place] [address], [address] [place] [phone] Nonrheumatic tricuspid valve regurgitati on 03/27/2021 Hospital Cardiology [place]counter [place] Al[place] [address], [address] [place] [phone] CATHETERIZATION RIGHT HEART 03/27/2021 Surgery Cardiology Date/Time Name Priority Associated Diagnose s 03/27/2021 9:05 AM WATCH AND CLOCK MAKER AND REPAIRER CATHETERIZATION RIGHT HEART Nonrheumatic tricuspid valve regurgitation documented as of this encounter Goals Goal Patient Associated Recent Progress Patient-Stat Aut hor Goal Type Problems ed? Improve [facility] On track (10/23/2020 Yes Sheldon, 1:06 PM CDT) CHRYSTAL Singh Improve [facility] On track (12/25/2020 Yes Sheldon, 2:41 PM CDT) CHRYSTAL Singh Note: "To get better and stronger." documented as of this encounter Visit Diagnoses Not on filedocumented in this encounter Additional Health Concerns Noted Time Assessment 02/06/2021 9:31 AM WATCH AND CLOCK MAKER AND REPAIRER A fall risk assessment has been complet ed for the patient 12/07/2020 3:18 PM CDT PHQ-2 Depression Total Score: 2 documented as of this encounter Care Teams Start Date End Date Weighmaster Relationship Specialty 05/15/20 Garfield Gray MD PCP - [address] [address] 06/13/20 Riley Hopson MD Consulting Cardiovascul [address] Physician ar Disease [address] [place], [place] [address] 12/20/20 Gino Pandya, NATIONAL OPELINT ANALYST-MOVEMENT ASSEMBLY FINAL INSPECTOR Nurse Nurse [address] [place] [address] 01/19/21 Teri Brandon Continuum of Care Case Management documented as of this encounter
--- OUTSIDE RECORDS SUMMARY | 2021-03-11 12:17 | XMS REPORT | Encounter Summary ---
Author Author [facility] Organization [facility] Address Unknown Phone Unavailable Care Team Providers Care Aerial Crop Duster Name Role Phone Self, Garfield OLVERA PCP Riley Hopson MD [phone] Gino Pandya APRN-CASE WORK AIDE [phone] Teri Barndon [phone] Unavailable Reason for Visit * Reason Comments Anticoagulation INR 1.5 Encounter Details Care Team Description Date Type Department Allegra Cotter BSN Anticoagulation (INR 1.5) 02/09/2021 Anticoagulation Cardiology: [facility] [address] [place] [address] 1, [address] [place] [address] Social History Date Tobacco Use Types Packs/Day Years Used Never Smoker Smokeless Tobacco: Never Used Comments Alcohol Use Standard Drinks/Week Not Currently 0 (1 standard drink = 0.6 o z pure alcohol) Sex Assigned at Date Recorded Female 06/01/2020 1:44 PM SERVICE WRITER ADVISOR Date Recorded COVID-19 Exposure Response 02/06/2021 9:16 AM SERVICE WRITER ADVISOR In the last month, have you been [...] as of this encounter Progress Notes * Allegra Cotter BSN - 02/09/2021 5:23 PM SERVICE WRITER ADVISOR ms sent to patient. No changes ICE WRITER ADVISOR documented in this encounter Plan of Treatment Care Team Description Date Type Specialty Carlos Longo MD [address] [facility] [address] [place] [address] [place] [address], [address] [place] [phone] 03/22/2021 Hospital Radiology Encounter Jacob Almaraz MD [address], [address] [place] [phone] Nonrheumatic tricuspid valve regurgitati on 03/27/2021 Hospital Cardiology Encounter Jacob Almaraz [place] [address], [address] [place] [phone] CATHETERIZATION RIGHT HEART 03/27/2021 Surgery Cardiology Date/Time Name Priority Associated Diagnose s 03/27/2021 9:05 AM SERVICE WRITER ADVISOR CATHETERIZATION RIGHT HEART Nonrheumatic tricuspid valve regurgitation documented as of this encounter Goals Goal Patient Associated Recent Progress Patient-Stat Aut hor Goal Type Problems ed? Improve [facility] On track (10/23/2020 Yes Sheldon, 1:06 PM CDT) CHRYSTAL Singh [facility] On track (12/25/2020 Yes Sheldon, 2:41 [...] Concerns Noted Time Assessment 02/06/2021 9:31 AM SERVICE WRITER ADVISOR A fall risk assessment has been complet ed for the patient 12/07/2020 3:18 PM CDT PHQ-2 Depression Total Score: 2 documented as of this encounter Care Teams Start Date End Date Aerial Crop Duster Relationship Specialty 05/15/20 Garfield Gray MD PCP - [address] [address] 06/13/20 Riley Hopson MD Consulting Cardiovascul [address] [place] [address] Physician ar Disease [address] [place], [place] [address] 12/20/20 Gino Pandya, RESEARCH COORDINATOR-CASE WORK AIDE Nurse Nurse [address] [place] [phone] 01/19/21 Teri Brandon Continuum of Care Case Management documented as of this encounter
--- OUTSIDE RECORDS SUMMARY | 2021-03-11 12:17 | XMS REPORT | Encounter Summary ---
Author Author [facility] Organization [facility] Address Unknown Phone Unavailable Care Team Providers Care Stationary Fireman Name Role Phone Self, Garfield OLVERA PCP Riley Hopson MD [phone] Gino Pandya INSULATION CUPOLA CHARGER-ASSESSOR [phone] Teri Brandon [phone] Unavailable Encounter Details Care Team Description Date Type Department 02/06/2021 Travel Social History Date Tobacco Use Types Packs/Day Years Used Never Smoker Smokeless Tobacco: Never Used Comments Alcohol Use Standard Drinks/Week Not Currently 0 (1 standard drink = 0.6 o z pure alcohol) Sex Assigned at Date Recorded Female 06/01/2020 1:44 PM NIP WRAPPER Date Recorded COVID-19 Exposure Response 02/06/2021 9:16 AM NIP WRAPPER In the last month, have you been [...] Date Type Specialty Carlos Longo MD 4000 [facility] [place] [address] [place] [address], [address] [place] [phone] 03/22/2021 Hospital Radiology Encounter Jacob Almaraz MD [address], [address] [place] [phone] Nonrheumatic tricuspid valve regurgitati on 03/27/2021 Hospital Cardiology [place]counter [place] [address], [address] [place] [phone] CATHETERIZATION RIGHT HEART 03/27/2021 Surgery Cardiology Date/Time Name Priority Associated Diagnose s 03/27/2021 9:05 AM NIP WRAPPER CATHETERIZATION RIGHT HEART Nonrheumatic tricuspid valve regurgitation documented as of this encounter Goals Goal Patient Associated Recent Progress Patient-Stat Aut hor Goal Type Problems ed? Improve [facility] On track (10/23/2020 Yes Sheldon, 1:06 PM CDT) CHRYSTAL Singh [facility] On track (12/25/2020 Yes Sheldon, 2:41 PM CDT) CHRYSTAL Singh Note: "To get better and stronger." documented as of this encounter Visit Diagnoses Not on filedocumented in this encounter Additional Health Concerns Noted Time Assessment 02/06/2021 9:31 AM NIP WRAPPER A fall risk assessment has been complet ed for the patient 12/07/2020 3:18 PM CDT PHQ-2 Depression Total Score: 2 documented as of this encounter Care Teams Start Date End Date Stationary Fireman Relationship Specialty 05/15/20 Garfield Gray MD PCP - General [address] [place] [address] 06/13/20 Riley Hopson MD Consulting Cardiovascul [address] Physician ar Disease [address] [place] [address] 12/20/20 Gino Pandya, INSULATION CUPOLA CHARGER-ASSESSOR Nurse Nurse [address] [place] [address] 01/19/21 Teri Brandon Continuum of Care Case Management documented as of this encounter
--- OUTSIDE RECORDS SUMMARY | 2021-03-11 12:17 | XMS REPORT | Encounter Summary ---
Author Author [facility] Organization [facility] Address Unknown Phone Unavailable Care Team Providers Care Carbon Plant Grinder Name Role Phone Self, Garfield OLVERA PCP Riley Hopson MD [phone] Gino Pandya [phone] Teri Brandon [phone] Unavailable Reason for Referral * Test (Routine) - Authorized Diagnoses / Procedures Referred By Contact [facility] Special[facility] Diagnoses Severe tricuspid regurgitation Procedures TRANSESOPHAGEAL ECHO DC ECHO TRANSESOPHAG R-T 2D W/PRB IMG ACQUISJ I&R DC DOP ECHOCARD COLOR FLOW VELOCITY MAPPING Mag Lozada APRN-NP 4000 [facility] [address] [place] [address] [facility] [address] [facility], [address] [place] [address] Cardiology Referral ID Status Reason Start Date Expiration Visits Vi sits Date Requested Authorized [id number] Authorized 02/22/2021 02/22/[address] Encounter Details Care Team Description Date Type Department Aarti Mars RN Severe tricuspid regurgitation (Primary Dx) 02/22/2021 Pre-Admit Cardiology: [facility] [address] [facility], [address] [place] [address] Social History Date Tobacco Use Types Packs/Day Years Used Never Smoker Smokeless Tobacco: Never Used Comments Alcohol Use Standard Drinks/Week Not Currently 0 (1 standard drink = 0.6 o z pure alcohol) Sex Assigned at Date Recorded Female 06/01/2020 1:44 PM DRYING ROOM ATTENDANT Date Recorded COVID-19 Exposure Response 02/19/2021 7:52 AM DRYING ROOM ATTENDANT In the last month, have you been [...] Date Type Specialty Carlos Longo MD [address] [address] [place] [address], [address] [place] [phone] 03/22/2021 Hospital Radiology Encounter Jacob Almaraz [place] [address], [address] [place] [phone] Nonrheumatic tricuspid valve regurgitati on 03/27/2021 Hospital Cardiology [place]counter [place] [address], [address] [place] [phone] CATHETERIZATION RIGHT HEART 03/27/2021 Surgery Cardiology Order Schedule Name Type Priority Associated Diag noses Expected: 03/27/2021, Expires: 2 TRANSESOPHAGEAL ECHO ECHO Routine Severe tr icuspid regurgitation Date/Time Name Priority Associated Diagnose s 03/27/2021 9:05 AM DRYING ROOM ATTENDANT CATHETERIZATION RIGHT HEART Nonrheumatic tricuspid valve regurgitation documented as of this encounter Goals Goal Patient Associated Recent Progress Patient-Stat Aut hor Goal Type Problems ed? Improve [facility] On track (10/23/2020 Yes Sheldon, 1:06 PM CDT) CHRYSTAL Singh [facility] On track (12/25/2020 Yes Sheldon, 2:41 PM CDT) CHRYSTAL Singh Note: "To get better and stronger." documented as of this encounter Visit Diagnoses Diagnosis Severe tricuspid regurgitation - Primar y Diseases of tricuspid valve Nonrheumatic tricuspid valve regurgitat ion Tricuspid valve disorders, specified as nonrheumatic documented in this encounter Additional Health Concerns Noted Time Assessment 02/19/2021 8:13 AM DRYING ROOM ATTENDANT A fall risk assessment has been complet ed for the patient 12/07/2020 3:18 PM CDT PHQ-2 Depression Total Score: 2 documented as of this encounter Care Teams Start Date End Date Carbon Plant Grinder Relationship Specialty 05/15/20 Garfield Gray MD PCP - [address] [phone] 06/13/20 Riley Hopson MD Consulting Cardiovascul [address] Physician ar Disease [address] [place], [place] [address] 12/20/20 Gino Pandya, SLEDGER-CLINICAL SUPPORT ASSOCIATE Nurse Nurse [address] [address] 01/19/21 Teri Brandon Continuum of Care Case Management documented as of this encounter
--- OUTSIDE RECORDS SUMMARY | 2021-03-11 12:17 | XMS REPORT | Encounter Summary ---
Author Author [facility] Organization [facility] Address Unknown Phone Unavailable Care Team Providers Care Home School Teacher Name Role Phone Self, Garfield OLVERA PCP Riley Hopson MD [phone] Gino Pandya APRN-COMMERCIAL ENERGY AUDITOR [phone] Teri Brandon [phone] Unavailable Reason for Visit * Reason Comments Anticoagulation INR 1.3 Encounter Details Care Team Description Date Type Department Josi Purvis BSN Anticoagulation (INR 1.3) 02/28/2021 Anticoagulation Cardiology: [facility] [address] [place] [address] 1, [address] [place] [address] Social History Date Tobacco Use Types Packs/Day Years Used Never Smoker Smokeless Tobacco: Never Used Comments Alcohol Use Standard Drinks/Week Not Currently 0 (1 standard drink = 0.6 o z pure alcohol) Sex Assigned at Date Recorded Female 06/01/2020 1:44 PM WARP PLACER Date Recorded COVID-19 Exposure Response 02/19/2021 7:52 AM WARP PLACER In the last month, have you been [...] Date Type Specialty Carlos Longo MD [address] [facility] [place] [address] [place] [address], [address] [place] [phone] 03/22/2021 Hospital Radiology Encounter Jacob Almaraz [place] [address], [address] [place] [phone] Nonrheumatic tricuspid valve regurgitati on 03/27/2021 Hospital Cardiology Encounter Jacob [place]az [place] [address], [address] [place] [phone] CATHETERIZATION RIGHT HEART 03/27/2021 Surgery Cardiology Date/Time Name Priority Associated Diagnose s 03/27/2021 9:05 AM WARP PLACER CATHETERIZATION RIGHT HEART Nonrheumatic tricuspid valve regurgitation documented as of this encounter Goals Goal Patient Associated Recent Progress Patient-Stat Aut hor Goal Type Problems ed? [facility] On track (10/23/2020 Yes Sheldon, 1:06 PM CDT) CHRYSTAL Singh [facility] On track (12/25/2020 Yes Sheldon, 2:41 PM [...] Concerns Noted Time Assessment 02/19/2021 8:13 AM WARP PLACER A fall risk assessment has been complet ed for the patient 12/07/2020 3:18 PM CDT PHQ-2 Depression Total Score: 2 documented as of this encounter Care Teams Start Date End Date Home School Teacher Relationship Specialty 05/15/20 Garfield Gray MD PCP - [address] [address] 06/13/20 Riley Hopson MD Consulting Cardiovascul [address] Physician ar Disease [address] [place], [place] [address] 12/20/20 Gino Pandya, WELDING MACHINE OPERATOR PLASMA ARC-COMMERCIAL ENERGY AUDITOR Nurse Nurse [address] [place] [address] 01/19/21 Teri Brandon Continuum of Care Case Management documented as of this encounter
--- OUTSIDE RECORDS SUMMARY | 2021-03-11 12:17 | XMS REPORT | Encounter Summary ---
Author Author [facility] Organization [facility] Address Unknown Phone Unavailable Care Team Providers Care Custodial Aide Name Role Phone Self, Garfield OLVERA PCP Riley Hopson MD [phone] Gino Pandya DIRECTOR PUBLIC SERVICE-CASE ASSISTANT [phone] Teri Brandon [phone] Unavailable Encounter Details Care Team Description Date Type Department 03/02/2021 Travel Social History Date Tobacco Use Types Packs/Day Years Used Never Smoker Smokeless Tobacco: Never Used Comments Alcohol Use Standard Drinks/Week Not Currently 0 (1 standard drink = 0.6 o z pure alcohol) Sex Assigned at Date Recorded Female 06/01/2020 1:44 PM GAMING DEALER Date Recorded COVID-19 Exposure Response 03/02/2021 2:50 PM GAMING DEALER In the last month, have you been [...] Type Specialty Carlos Longo MD [address] [facility] [place] [address] [place] [address], [address] [place] [phone] 03/22/2021 Hospital Radiology Encounter Jacob Al[place]az [place] [address] [place] [phone] Nonrheumatic tricuspid valve regurgitati on 03/27/2021 Hospital Cardiology Encounter Jacob Al[place]az [place] [address], [address] [place] [phone] CATHETERIZATION RIGHT HEART 03/27/2021 Surgery Cardiology Date/Time Name Priority Associated Diagnose s 03/27/2021 9:05 AM GAMING DEALER CATHETERIZATION RIGHT HEART Nonrheumatic tricuspid valve regurgitation documented as of this encounter Goals Goal Patient Associated Recent Progress Patient-Stat Aut hor Goal Type Problems ed? Improve [facility] On track (10/23/2020 Yes Sheldon, 1:06 PM CDT) CHRYSTAL Singh [facility] On track (12/25/2020 Yes Sheldon, 2:41 PM CDT) CHRYSTAL Singh Note: "To get better and stronger." documented as of this encounter Visit Diagnoses Not on filedocumented in this encounter Additional Health Concerns Noted Time Assessment 03/02/2021 3:11 PM GAMING DEALER A fall risk assessment has been complet ed for the patient 12/07/2020 3:18 PM CDT PHQ-2 Depression Total Score: 2 documented as of this encounter Care Teams Start Date End Date Custodial Aide Relationship Specialty 05/15/20 Garfield Gray MD PCP - General [address] [place] [address] 06/13/20 Riley Hopson MD Consulting Cardiovascul [address] Physician ar Disease [address] [place] [address] 12/20/20 Gino Pandya, DIRECTOR PUBLIC SERVICE-CASE ASSISTANT Nurse Nurse [address] [place] [address] 01/19/21 Teri Brandon Continuum of Care Case Management documented as of this encounter
--- OUTSIDE RECORDS SUMMARY | 2021-03-11 12:17 | XMS REPORT | Encounter Summary ---
Author Author [facility] Organization [facility] Address Unknown Phone Unavailable Care Team Providers Care Choir Singer Name Role Phone Self, Garfield OLVERA PCP Riley Hopson MD [phone] Gino Pandya RIVET SORTER-ESCALATOR ATTENDANT [phone] Teri Brandon [phone] Unavailable Reason for Referral * Radiology Services (Routine) - Authorized Diagnoses / Procedures Referred By Contact Referred To Conta ct Specialty Diagnoses Chronic heart failure with preserved ejection fraction (HCC) RVF (right ventricular failure) (HCC) Other cirrhosis of liver (HCC) Procedures IR PARACENTESIS THERAPEUTIC Carlos Longo MD [address] [address] [address] [place] [address] Radiology Referral ID Status Reason Start Date Expiration Visits Vi sits Date Requested Authorized [id number] Authorized 01/22/2021 01/22/2022 20 20 K SECRETARY Reason for Visit * Radiology Services (Routine) - Authorized Diagnoses / Procedures Referred By Contact Referred To Conta ct Specialty Diagnoses Chronic heart failure with preserved ejection fraction (HCC) RVF (right ventricular failure) (HCC) Other cirrhosis of liver (HCC) Procedures IR PARACENTESIS THERAPEUTIC Carlos Longo MD [address] [place] [address] [place] [address] Radiology Referral ID Status Reason Start Date Expiration Visits Vi sits Date Requested Authorized [id number] Authorized 01/22/2021 01/22/2022 20 20 Encounter Details Care Team Description Date [place] [address], [address] [place] [phone] Jeanette Kingston, RT(R)(),LRT Heena Lundy RN Chronic heart failure with preserved eje ction fraction (HCC) 03/05/2021 Hospital Interventional Radi ology: Encounter [facility] [address] [place] [phone] Social History Date Tobacco Use Types Packs/Day Years Used Never Smoker Smokeless Tobacco: Never Used Comments Alcohol Use Standard Drinks/Week Not Currently 0 (1 standard drink = 0.6 o z pure alcohol) Sex Assigned at Date Recorded Female 06/01/2020 1:44 PM CLERK SECRETARY Date Recorded COVID-19 Exposure Response 03/05/2021 8:08 AM CLERK SECRETARY In the last month, have you been in contact with No / Unsure someone who was confirmed or suspected to have Coronavirus / COVID-19? documented as of this encounter Last Filed Vital Signs Reading Time Taken Comments Vital Sign 112/68 03/05/2021 9:57 AM CLERK SECRETARY Blood Pressure - - Pulse 36.5 C (97.7 F) 03/05/2021 8:14 AM CLERK SECRETARY Temperature - - Respiratory Rate 95% 03/05/2021 9:57 AM CLERK SECRETARY Oxygen Saturation - - Inhaled Oxygen Concentration 55.8 kg (123 lb) 03/05/2021 8:14 AM CLERK SECRETARY Weight 157.5 cm (5' 2") 03/05/2021 8:14 AM CLERK SECRETARY Height 22.5 03/05/2021 8:14 AM CLERK SECRETARY Body Mass Index documented in this encounter [...] documented in this encounter Progress Notes * Willow Sue RN - 03/05/2021 10:04 AM CLERK SECRETARY INR; 6.3. RN notified by the lab at this time. K SECRETARY documented in this encounter H&P Notes * Ruddy Connelly MD - 03/05/2021 8:41 AM CLERK SECRETARY Pre Procedure History and Physical/Sedation Plan Procedure Date: 03/05/2021 Planned Procedure(s): paracetnesis Indication: ascites Sedation/Medication Plan: none Discussion/Reviews: Physician has discussed risks and alternatives of this type of sedation and above planned procedures with patient Notes: none Active Problems: * No active hospital problems. * Chief Complaint: ascites History of Present Illness: Zarai Paulson is a 61 y.o. female with ascites Previous Anesthetic/Sedation History: Denies previous adverse events Nursing Medical History Nursing Surgical History Pertinent medical/surgical history reviewed Social History Socioeconomic History Marital status: Spouse name: Catarino Number of children: 3 Years of education: [...] Social History Narrative Not on file Family history reviewed; non-contributory Allergies: Patient has no known allergies. Medications: No current facility-administered medications for this encounter. Review of Systems: Pertinent as noted per HPI Physical Exam: Temp: 36.5 C (97.7 F) (03/05 814) Respirations: 18 PER MINUTE (03/05 814) BP: 114/77 (03/05 814) General: Alert, cooperative, no distress, appears stated age Airway: airway assessment performed Mallampati II (soft palate, uvula, fauces visible) Anesthesia Classification: ASA II (A normal patient with mild systemic disease) Lab/Radiology/Other Diagnostic Tests: Labs: Pertinent labs reviewed CXR: Not obtained Consults: Not obtained Ruddy Connelly MD K SECRETARY documented in this encounter Miscellaneous Notes * Patient Instructions - Willow Sue RN - 03/05/2021 8:10 AM CLERK SECRETARY Images from the original note were not [...] to the procedu re performed at the [place] Location, call [phone] Friday-Friday from 7 -5p. After-hours and weekends, please call [phone] and ask [facility] M[facility] on-call. You or your caregiver should call [phone] for any severe symptoms such as excessive bleeding, severe dizziness, trouble breathing or loss of consciousness. K SECRETARY documented in this encounter Plan of Treatment Care Team Description Date Type Specialty Carlos Longo MD [address] [employer] [place] [address] [place] [address], [address] [place] [address] 03/22/2021 Hospital Radiology Encounter Jacob Almaraz [place] [address], [address] [place] [phone] Nonrheumatic tricuspid valve regurgitati on 03/27/2021 Hospital Cardiology Encounter [place] Almaraz [place] [address], [address] [place] [phone] CATHETERIZATION RIGHT HEART 03/27/2021 Surgery Cardiology Date/Time Name Priority Associated Diagnose s 03/27/2021 9:05 AM CLERK SECRETARY CATHETERIZATION RIGHT HEART Nonrheumatic tricuspid valve regurgitation documented as of this encounter Goals Goal Patient Associated Recent Progress Patient-Stat Aut hor Goal Type Problems ed? [facility] On track (10/23/2020 Yes Sheldon, 1:06 PM CDT) CHRYSTAL Singh [facility] On track (12/25/2020 Yes Sheldon, 2:41 PM CDT) CHRYSTAL Singh Note: "To get better and stronger." documented as of this encounter Procedures Comments Procedure Name Priority Date/Time Associated Diag nosis IR PARACENTESIS Routine 03/05/2021 Chronic heart failure THERAPEUTIC 9:32 AM CLERK SECRETARY with preserved ejec tion fraction (HCC) RVF (right ventricular failure) (HCC) Other cirrhosis of liver (HCC) HC PT(INR) Routine 03/05/2021 Chronic heart f ailure 8:28 AM CLERK SECRETARY with preserved ejection fraction (HCC) documented in this encounter Results * IR PARACENTESIS THERAPEUTIC (03/05/2021 9:32 AM CLERK SECRETARY) Modality Anatomical Region Laterality Ultrasound Specimen Impressions [facility] RESULTS - 03/05/2021 4:20 PM CLERK SECRETARY IMPRESSION: Successful ultrasound guided paracentesis with removal of 3.6 liters of fluid. Ruddy Toribio M.D., the attending radiologist, was present for the procedure, personally reviewed the images, and formulated the interpretations and opinions expressed in this report. @TT Finalized by RUDDY CONNELLY on 03/05/2021 4:20 PM. Dictated by RUDDY CONNELLY on 03/05/2021 4:19 PM. Narrative [facility] RESULTS - 03/05/2021 4:20 PM CLERK SECRETARY Reason for exam: Paracentesis, ascites. Operators: Ruddy Connelly M.D. The risks and benefits of procedure were explained the patient beforehand, the patient was allowed to ask any questions at this time. Using ultrasound guidance, an appropriate insertion site in the right lower quadrant was marked. The patient was prepped and draped in the usual sterile fashion. Approximately 5 cc of lidocaine was used for local anesthesia. A Jkp-D-Hjwjixdo needle was inserted into the abdomen, with return of serous yellow fluid. Approximately 3.6 liters of fluid was removed. The patient tolerated procedure well. The patient was then escorted from the department for continued care. Procedure Note Ruddy Connelly MD - 03/05/2021 Reason for exam: Paracentesis, ascites. Operators: Ruddy Connelly M.D. The risks and benefits of procedure were explained the patient beforehand, the patient was allowed to ask any questions at this time. Using ultrasound guidance, an appropriate insertion site in the right lower quadrant was marked. The patient was prepped and draped in the usual sterile fashion. Approximately 5 cc of lidocaine was used for local anesthesia. A Hbk-L-Rodhmfcj needle was inserted into the abdomen, with return of serous yellow fluid. Approximately 3.6 liters of fluid was removed. The patient tolerated procedure well. The patient was then escorted from the department for continued care. IMPRESSION IMPRESSION: Successful ultrasound guided paracentesis with removal of 3.6 liters of fluid. Ruddy Toribio M.D., the attending radiologist, was present for the procedure, personally reviewed the images, and formulated the interpretations and opinions expressed in this report. @TT Finalized by RUDDY CONNELLY on 03/05/2021 4:20 PM. Dictated by RUDDY CONNELLY on 03/05/2021 4:19 PM. Performing Organization Address City/State/ZIP Code P shane Number [facility] RESULTS * (ABNORMAL) PROTIME INR (PT) (03/05/2021 8:28 AM CLERK SECRETARY) INR 6.3 (HH) 0.8 - 1.2 [facility] Comment: CRITICAL VALUE CALLED TO AND READ BACK BY/TIME/TECH CHRYSTAL SUE at 03/05/2021 12:47:06 by 32 Specimen Blood Performing Organization Address City/State/ZIP Code P shane Number MAIN LAB [address] [place] [address] documented in this encounter Visit Diagnoses Diagnosis Chronic heart failure with preserved ej ection fraction (HCC) RVF (right ventricular failure) (HCC) Congestive heart failure, unspecified Other cirrhosis of liver (HCC) Nonrheumatic tricuspid valve regurgitat ion Tricuspid valve disorders, specified as nonrheumatic documented in this encounter Administered Medications Action Date Dose Rate Site Medication Order MAR Action 03/05/2021 9:13 AM CLERK SECRETARY 12.5 g albumin 25% injection Given - New INTRA-PROCEDURE MED(CONT), Starting on Bag Fri03/05/21 at 0907, Until Fri 1 at 0913 12.5 g Given - New Bag 03/05/2021 9:07 AM CLERK SECRETARY documented in this encounter Active and Recently Administered Medications Times are shown in CLERK SECRETARY. 03/04/2021 03/05/2021 Medication Order 03/03/2021 0907 (Given - New Bag - Provider: Sanjuana Lundy RN)0913 (Given - New Bag - Provider: Heena Lundy RN) albumin 25% injection (COMPLETED) INTRA-PROCEDURE MED(CONT), Starting on Fri03/05/21 at 0907, Until Fri 1 at 0913 documented in this encounter Additional Health Concerns Noted Time Assessment 03/05/2021 8:16 AM CLERK SECRETARY A fall risk assessment has been complet ed for the patient 12/07/2020 3:18 PM CDT PHQ-2 Depression Total Score: 2 documented as of this encounter Care Teams Start Date End Date Choir Singer Relationship Specialty 05/15/20 Garfield Gray MD PCP - [address] [phone] 06/13/20 Riley Hposon MD Consulting Cardiovascul [address] Physician [address] Disease [address] [place] [id number] 12/20/20 Gino Pandya, RIVET SORTER-ESCALATOR ATTENDANT Nurse Nurse [address] [place] [address] 01/19/21 Teri Brandon Continuum of Care Case Management documented as of this encounter
--- OUTSIDE RECORDS SUMMARY | 2021-03-11 12:17 | XMS REPORT | Encounter Summary ---
Author Author [facility] Organization [facility] Address Unknown Phone Unavailable Care Team Providers Care Strike Planning Applications Name Role Phone Self, Garfield OLVERA PCP Riley Hopson MD [phone] iGno Pandya APRN-VULCANIZER RUBBER PLATE [phone] Trei Brandon [phone] Unavailable Encounter Details Care Team Description Date Type Department Josi Purvis BSN Paroxysmal atrial fibrillation (HCC); Chronic heart failure with preserved ejection fraction (HCC) 02/09/2021 Orders Only Cardiology: [facility] [address] [facility] [address], [address] [place] [address] Social History Date Tobacco Use Types Packs/Day Years Used Never Smoker Smokeless Tobacco: Never Used Comments Alcohol Use Standard Drinks/Week Not Currently 0 (1 standard drink = 0.6 o z pure alcohol) Sex Assigned at Date Recorded Female 06/01/2020 1:44 PM CONVERSION MAN Date Recorded COVID-19 Exposure Response 02/06/2021 9:16 AM CONVERSION MAN In the last month, have you been [...] Date Type Specialty Carlos Longo MD [address] [facility] [place] [address] [place] [address], [address] [place] [phone] 03/22/2021 Hospital Radiology Encounter [place] [address], [address] [place] [phone] Nonrheumatic tricuspid valve regurgitati on 03/27/2021 Hospital Cardiology Encounter Jacob Almaraz [place] [address], [address] [place] [phone] CATHETERIZATION RIGHT HEART 03/27/2021 Surgery Cardiology Date/Time Name Type Priority Associated Diag noses 02/09/2021 5:21 PM CONVERSION MAN PROTIME INR (PT) Lab Routine Chronic heart failure with preserved ejection fraction (HCC) Date/Time Name Priority Associated Diagnose s 03/27/2021 9:05 AM CONVERSION MAN CATHETERIZATION RIGHT HEART Nonrheumatic tricuspid valve regurgitation documented as of this encounter Goals Goal Patient Associated Recent Progress Patient-Stat Aut hor Goal Type Problems ed? [facility] On track (10/23/2020 Yes Sheldon, 1:06 PM CDT) CHRYSTAL Singh [facility] On track (12/25/2020 Yes Sheldon, 2:41 PM CDT) CHRYSTAL Singh Note: "To get better and stronger." documented as of this encounter Visit Diagnoses Diagnosis Paroxysmal atrial fibrillation (HCC) Atrial fibrillation Chronic heart failure with preserved ej ection fraction (HCC) Nonrheumatic tricuspid valve regurgitat ion Tricuspid valve disorders, specified as nonrheumatic documented in this encounter Orders First Ordered Date Lab Orders Without Results Count Last Ordere d Date PROTIME INR (PT) 1 02/09/2021 documented in this encounter Additional Health Concerns Noted Time Assessment 02/06/2021 9:31 AM CONVERSION MAN A fall risk assessment has been complet ed for the patient 12/07/2020 3:18 PM CDT PHQ-2 Depression Total Score: 2 documented as of this encounter Care Teams Start Date End Date Strike Planning Applications Relationship Specialty 05/15/20 Garfield Gray MD PCP - [address] [address] 06/13/20 Riley Hopson MD Consulting Cardiovascul [address] Physician ar Disease [address] [place], [place] [address] 12/20/20 Gino Pandya, LUBRICATING ENGINEER-VULCANIZER RUBBER PLATE Nurse Nurse [address] [place] [address] 01/19/21 Teri Brandon Continuum of Care Case Management documented as of this encounter
--- OUTSIDE RECORDS SUMMARY | 2021-03-11 12:17 | XMS REPORT | Encounter Summary ---
Author Author [facility] Organization [facility] Address Unknown Phone Unavailable Care Team Providers Care Instructor Trainer Canine Service Name Role Phone Self, Garfield OLVERA PCP Riley Hopson MD [phone] Gino Pandya APRN-FINAL INSPECTOR AND TESTER [phone] Teri Brandon [phone] Unavailable Reason for Referral * Consult, Test & Treat (Routine) - Authorized Diagnoses / Procedures Referred By [facility] Severe tricuspid regurgitation Carlos Longo MD [address] [facility] [place] [address] [facility] [address] [facility], [address] [place] [address] Cardiology Referral ID Status Reason Start Date Expiration Visits Vi sits Date Requested Authorized [id number] Authorized Specialty Services 02/19/2021 02/19/2022 1 1 Required Comments Valve Clinic Referral for Tricuspid Valve Clipping Referral Details: New to Specialty - consult, test, treat Priority: Normal (first available) OFFSET PRESS FEEDER Reason for Visit * Reason Comments Heart Failure 6 month follow up Follow Up Encounter Details Care Team Description Date Type Department Carlos Longo MD [address] [facility] [place] [address] Heart Failure (6 month follow up); Babatunde edward Up 02/19/2021 Office Visit Cardiology: [facility] [address], [address] [place] [address] Social History Date Tobacco Use Types Packs/Day Years Used Never Smoker Smokeless Tobacco: Never Used Comments Alcohol Use Standard Drinks/Week Not Currently 0 (1 standard drink = 0.6 o z pure alcohol) Sex Assigned at Date Recorded Female 06/01/2020 1:44 PM WEB OFFSET PRESS FEEDER Date Recorded COVID-19 Exposure Response 02/19/2021 7:52 AM WEB OFFSET PRESS FEEDER In the last month, have you been [...] as of this encounter Progress Notes * Carlos Longo MD - 02/19/2021 3:30 PM WEB OFFSET PRESS FEEDER Date of Service: 02/19/2021 Obtained patient's verbal consent to treat them and their agreement to [facility] policy and NPP via this telehealth visit during the Coronavirus Public [facility]. This video home visit was conducted via communication between the patient and ph ysician/provider due to COVID-19. We have found that certain health care needs can be provided without an in-person visit.. This service lets us provide the ca re patients' need. If a prescription is necessary we can send it directly to [facility]. If testing is necessary this can be arranged. Zaria Paulson is a 61 y.o. female. HPI It is my pleasure to see Ms. Khurram Enciso, pleasant 60-year-old female who has be en referred here by Berna Madison. I saw her in Jul, 2020. She is a post hospit al discharge. She is accompanied by her in the [facility]. This is a very complex situation, she lives in [facility], She was first seen in pulmonary hypertension clinic by Dr. Kathi Rosales on 2020 as a referral to pulmonary hypertension comprehensive care center at [facility], she was told by her chemist intern that she has pulmonary hypertension on right heart catheterization. I have right heart cath eterization from December 2019, done outside hospital showing PA pressure of 50/2 3 with wedge of 19, cardiac output of 5.5 with index of 3.2, Her echocardiogram from May 22 showed LVEF of 60% with moderate to severe RV di lation with normal RV contractility with elevated CVP with PA systolic pressure of 64 mmHg, she had mechanical aortic valve which showed peak velocity of 2.5 an d mean gradient of 13 with peak aortic gradient of 25 mmHg. She had severe tric uspid regurgitation. From Dr. Rosales clinic, the plan was to repeat the right heart catheterization a nd VQ scan and CT scan to rule out any pulmonary embolism, she was diagnosed to have cor pulmonale. She was admitted on June 01 on medicine service when she presented with chest p ain and dyspnea, she was aggressively diuresed from her admission weight of 157, she had extensive evaluation done with GI, pulmonary hypertension group and car diology team, she had her aggressive diuresis and weight loss of approximately 2 7 pounds she was discharged home on 130 pounds weight. She also has angiectasia on colonoscopy which was thought to be as a result of bleeding and anemia she a lso had blood loss anemia, she also had EGD which did not show any evidence of b leeding. Cardiac History# I saw her in the clinic on August 01, 2020, I obtained an extensive history this is all the timeline is 1973: When she was 16 years old, [...] of atrial fibrillation however she is on anticoagulated wit h warfarin due to mechanical aortic valve Non-Hodgkin's lymphoma# In 2004, she was diagnosed with NHL and underwent chemotherapy. [facility]. She follows hematology regularly, however she feels that she develope d liver cirrhosis secondary to the chemotherapy which was diagnosed in 2016 as d etailed below She did have evidence of Streptococcus viridans infection in 2017 however on JANIE the mechanical aortic valve did not show any evidence of endocarditis. Liver cirrhosis#2017 I saw gastroenterology note, she had diagnosis of cirrhosis based on the liver b iopsy, I do not have the results however there is a gastroenterology note in the outside record in care everywhere. She does have cyclic vomiting. She has had endoscopy without any evidence of portal hypertension or variceal bleeding. She does have ascites. She has been on Coumadin her INR is elevated, her albumin is 2.5 suggestive of declining synthetic function. She does not have any protei jennifer. Currently, although her discharge weight was 130, her home scale weight is close to 142 pounds, our scale is showing 150 pounds, she has gained about 12 pounds. However she reported that she did not feel great when she was 130. She did re ceive 2 units of blood transfusion for low hemoglobin. I do not know the detail s at this time Reduced restrictive lung disease her FVC 56% FEV1 of 60% and DLCO of 66% suggest cynthia of restrictive lung disease possibly related to pulmonary edema and chronic venous congestion. She is getting frequent decided tab, discussion with the liver specialist at , it is predominantly driven by her severe RV dysfunction. Overall she feels wel l. She was asking if she has options for tricuspid valve surgery however due to her frailty she is not a surgical candidate for tricuspid valve There is no height or weight on file to calculate BMI. Past Medical History Patient Active Problem List [...] 11/04/2020 Hypoalbuminemia 10/23/2020 LEONORA (acute kidney injury) ([facility]) 10/21/2020 GI bleeding 10/20/2020 Cirrhosis (HCC) 09/07/2020 Non-ischemic cardiomyopathy (HCC) 09/07/2020 Paroxysmal atrial fibrillation (HCC) 09/07/2020 Stage 3b chronic kidney disease (HCC) 09/07/2020 Atrial tachycardia (HCC) 09/07/2020 Iron deficiency anemia 08/03/2020 High output congestive heart failure ([facility]) 08/01/2020 Hypotension, unspecified 07/10/2020 Chronic heart failure with preserved ejection fraction (HCC) 06/07/2020 Anemia 06/07/2020 Severe tricuspid regurgitation 06/07/2020 Hx of mechanical aortic valve replacement 06/07/2020 Chronic anticoagulation 06/07/2020 warfarin History of endocarditis 06/07/2020 Review of Systems Constitutional: Negative. HENT: Negative. Eyes: Negative. Cardiovascular: Negative. Respiratory: Negative. Endocrine: Negative. Hematologic/Lymphatic: Negative. Skin: Negative. Musculoskeletal: Negative. Gastrointestinal: Negative. Genitourinary: Negative. Neurological: Negative. Psychiatric/Behavioral: Negative. Allergic/Immunologic: Negative. All other systems reviewed and are negative. Physical exam limited d/t video tele health visit: General Appearance: patient in no apparent distress. Skin: pink, no jaundice, exposed skin is intact Eyes: conjunctivae and lids normal, pupils are equal and round Lips: no pallor or cyanosis Neck Veins: Respiratory Effort: breathing comfortably, no respiratory distress Lower extremities: Orientation: oriented to time, place and person PSYCH: Appropriate Language and Memory: patient responsive and seems to comprehend information NEURO: Alert and conversant Cardiovascular Studies Problems Addressed Today Encounter Diagnoses Name Primary? Hx of mechanical aortic valve replacement Yes Severe tricuspid regurgitation Chronic anticoagulation Severe malnutrition (HCC) Stage 3b chronic kidney disease (HCC) Assessment and Plan 1. Recommendations: -Refer to valve clinic for tricuspid valve clipping. 2. Next follow up appointment in [place] already scheduled in February. Total Time Today was minutes in the following activities: Preparing to see the patient Current Medications (including today's revisions) ascorbic acid (VITAMIN C) 500 mg tablet Take 500 mg by mouth daily. bumetanide (BUMEX) 1 mg tablet Take five tablets by mouth twice daily for 36 0 days. calcium carbonate (OS-KRUPA) 1250 mg tablet Take 1,250 mg by mouth daily. empagliflozin (JARDIANCE) 10 mg tablet Take one tablet by mouth daily. ferrous gluconate (FERGON) 240 mg (27 mg [...] tablets by mouth three times d aily. MULTIVITAMIN PO Take 1 tablet by mouth daily. oxybutynin chloride (DITROPAN) 5 mg tablet Take one tablet by mouth daily. ( Patient taking differently: Take 5 mg by mouth three times daily.) pantoprazole DR (PROTONIX) 40 mg tablet Take 40 mg by mouth twice daily. sertraline (ZOLOFT) 100 mg tablet Take one tablet by mouth twice daily. spironolactone (ALDACTONE) 25 mg tablet Take three tablets by mouth twice da [place]. Take with food. VASCEPA 1 gram capsule TAKE 2 CAPSULES BY MOUTH TWICE DAILY WITH MEALS warfarin (COUMADIN) 1 mg tablet Take two tablets by mouth daily. OFFSET PRESS FEEDER documented in this encounter Miscellaneous Notes * Patient Instructions - Kathryn Barbosa MA - 02/19/2021 3:30 PM WEB OFFSET PRESS FEEDER Thank you for coming to [facility]. Your instructions tod ay: 1. Recommendations: -Refer to valve clinic for tricuspid valve clipping. 2. Next follow up appointment in [place] already scheduled in February. For up to date information on the [...] symptoms o In a medical emergency, call 911 or go to the nearest emergency room. Carlos Longo MD, MSc RYAN Haji RN [facility] at [facility] Scheduling: In order to provide you the best care possible we ask that you follow up as leila edward: For NON-URGENT questions please contact us through your [employer] account. For all medication refills please contact your pharmacy or send a request ronald Hernandez. For all questions that may need to be addressed urgently please call the nursing triage line at [phone] Friday - Friday 8 AM-5 PM only. Please leave a deta iled message with your name, date of , and reason for your call. To schedule an appointment call [phone]. Please allow 10 business days for the results of any testing to be reviewed. Ple ase call our office if you have not heard from a nurse within this time frame. Your Heart Failure Symptom Awareness and Action [...] symptoms. Please call the heart failure nurses: [phone] Shortness of breath at rest or waking up at night feeling short of breath or co ughing Increased number of pillows used or needing to sit upright to sleep Chest tightness at rest Dizziness, lightheadedness or feeling faint You need to schedule an appointme nt Emergency Zone call 911 Worsening chest tightness or pain that is not rel ieved by medication Severe shortness of breath and a cough with pink, frothy sputum OFFSET PRESS FEEDER documented in this encounter Plan of Treatment Care Team Description Date Type Specialty Carlos Longo MD [address] [address] [place] [address] [place] [phone] 03/22/2021 [facility] Radiology [place] [address], [address] [place] [phone] Nonrheumatic tricuspid valve regurgitati on 03/27/2021 Hospital Cardiology [place]counter [place] [address], [address] [place] [phone] CATHETERIZATION RIGHT HEART 03/27/2021 Surgery Cardiology Date/Time Name Priority Associated Diagnose s 03/27/2021 9:05 AM WEB OFFSET PRESS FEEDER CATHETERIZATION RIGHT HEART Nonrheumatic tricuspid valve regurgitation Order Schedule Name Type Priority Associated Diag noses Ordered: 02/19/2021 AMB REFERRAL TO ADULT Outpatient Routine Severe t ricuspid CARDIOLOGY:INTERVENTIONAL Referral regurgitatio n CARDIOLOGY documented as of this encounter Goals Goal Patient Associated Recent Progress Patient-Stat Aut hor Goal Type Problems ed? Improve [facility] On track (10/23/2020 Yes Redan, 1:06 PM CDT) CHRYSTAL Singh [facility] On track (12/25/2020 Yes Sheldon, 2:41 PM CDT) CHRYSTAL Singh Note: "To get better and stronger." documented as of this encounter Visit Diagnoses Diagnosis Hx of mechanical aortic valve replaceme nt - Primary Heart valve replaced by other means Severe tricuspid regurgitation Diseases of tricuspid valve Chronic anticoagulation Long-term (current) use of anticoagulan ts Severe malnutrition (HCC) Nutritional marasmus Stage 3b chronic kidney disease (HCC) Nonrheumatic tricuspid valve regurgitat ion Tricuspid valve disorders, specified as nonrheumatic documented in this encounter Discontinued Medications Start Date End Date Medication Sig Discontinue Reason 05/09/2020 02/19/2021 ergocalciferol (VITAMIN Take 1 Other D-2) 1,250 mcg (50,000 capsule by unit) capsule mouth every 7 days. documented as of this encounter Historical Medications * This list may reflect changes made after this encounter. Start Date End Date Medication Sig Dispensed Refills MULTIVITAMIN PO Take 1 tablet 0 by mouth daily. ascorbic acid (VITAMIN C) Take 500 mg 0 500 mg tablet by mouth daily. added in this encounter Additional Health Concerns Noted Time Assessment 02/19/2021 8:13 AM WEB OFFSET PRESS FEEDER A fall risk assessment has been complet ed for the patient 12/07/2020 3:18 PM CDT PHQ-2 Depression Total Score: 2 documented as of this encounter Care Teams Start Date End Date Instructor Trainer Canine Service Relationship Specialty 05/15/20 Garfield Gray MD PCP - General [address] Medicine [place], [place] [phone] 06/13/20 Riley Hopson MD Consulting Cardiovascul [address] Physician ar Disease [address] [place] [address] 12/20/20 Gino Pandya, PSYCHOLOGY PROFESSOR-FINAL INSPECTOR AND TESTER Nurse Nurse [address] [facility] Practitioner Practitioner [facility] , [place] [address] 01/19/21 Teri Brandon Continuum of Care Case Management documented as of this encounter
--- OUTSIDE RECORDS SUMMARY | 2021-03-11 12:17 | XMS REPORT | Encounter Summary ---
Author Author [facility] Organization [facility] Address Unknown Phone Unavailable Care Team Providers Care Material Attendant Name Role Phone Self, Garfield OLVERA PCP Riley Hopson MD [phone] Gino Pandya APRN-FUR COAT SEWER [phone] Teri Brandon [phone] Unavailable Reason for Visit * Reason Comments Anticoagulation 2.0 Encounter Details Care Team Description Date Type Department Helen Waggoner RN Anticoagulation (2.0) 02/05/2021 Anticoagulation Cardiology: [facility] [address] [place] [address] 1, [address] [place] [address] Social History Date Tobacco Use Types Packs/Day Years Used Never Smoker Smokeless Tobacco: Never Used Comments Alcohol Use Standard Drinks/Week Not Currently 0 (1 standard drink = 0.6 o z pure alcohol) Sex Assigned at Date Recorded Female 06/01/2020 1:44 PM JIG MAKER Date Recorded COVID-19 Exposure Response 01/23/2021 1:48 [...] Progress Notes * Helen Waggoner RN - 02/05/2021 3:07 PM JIG MAKER INR 2.0 and WNL. I left detailed VM to verified number 02/05 of warfarin therapy plan. I reviewed plan with Jeff Davis. I informed patient that I will send my chart message with instructions. I asked for / message with questions or concerns. Next INR check on Friday, 02/12. MAKER documented in this encounter Plan of Treatment Care Team Description Date Type Specialty Carlos Longo MD [address] [facility] [address] [place] [address] [place] [address], [address] [place] [phone] 03/22/2021 Hospital Radiology Encounter Jacob Almaraz [address], [address] [place] [phone] Nonrheumatic tricuspid valve regurgitati on 03/27/2021 Hospital Cardiology [place]counter [place] Almaraz [place] [address], [address] [place] [phone] CATHETERIZATION RIGHT HEART 03/27/2021 Surgery Cardiology Date/Time Name Priority Associated Diagnose s 03/27/2021 9:05 AM JIG MAKER CATHETERIZATION RIGHT HEART Nonrheumatic tricuspid valve regurgitation documented as of this encounter Goals Goal Patient Associated Recent Progress Patient-Stat Aut hor Goal Type Problems ed? [facility] On track (10/23/2020 Yes Sheldon, 1:06 PM CDT) CHRYSTAL Singh [facility] On track (12/25/2020 Yes Sheldon, 2:41 PM CDT) Samantha RN Note: "To get better and stronger." documented [...] Concerns Noted Time Assessment 02/02/2021 2:24 PM JIG MAKER A fall risk assessment has been complet ed for the patient 12/07/2020 3:18 PM CDT PHQ-2 Depression Total Score: 2 documented as of this encounter Care Teams Start Date End Date Material Attendant Relationship Specialty 05/15/20 Garfield Gray MD PCP - [address] [phone] 06/13/20 Riley Hopson MD Consulting Cardiovascul [address] [place] [address] Physician [address] [place], [place] [phone] 12/20/20 Gino Pandya, YARD STOCKER-FUR COAT SEWER Nurse Nurse [address] [phone] 01/19/21 Teri Brandon Continuum of Care Case Management documented as of this encounter
--- OUTSIDE RECORDS SUMMARY | 2021-03-11 12:17 | XMS REPORT | Encounter Summary ---
Author Author [facility] Organization [facility] Address Unknown Phone Unavailable Care Team Providers Care Auto Parts Salesperson Name Role Phone Self, Garfield OLVERA PCP Riley Hopson MD [phone] Gino Pandya APRN-CONCRETE BUCKET LOADER [phone] Teri Brandon [phone] Unavailable Reason for Visit * Reason Comments Anticoagulation INR 1.4 Encounter Details Care Team Description Date Type Department Josi Purvis BSN Anticoagulation (INR 1.4) 02/19/2021 Anticoagulation Cardiology: [facility] [address] [place] [address] [address], [address] [place] [address] Social History Date Tobacco Use Types Packs/Day Years Used Never Smoker Smokeless Tobacco: Never Used Comments Alcohol Use Standard Drinks/Week Not Currently 0 (1 standard drink = 0.6 o z pure alcohol) Sex Assigned at Date Recorded Female 06/01/2020 1:44 PM GAMB CUTTER Date Recorded COVID-19 Exposure Response 02/19/2021 7:52 AM GAMB CUTTER In the last month, have you [...] Date Type Specialty Carlos Longo MD [address] [facility] [place] [address] [place] [address], [address] [place] [phone] 03/22/2021 Hospital Radiology Encounter [place] [address], [address] [place] [phone] Nonrheumatic tricuspid valve regurgitati on 03/27/2021 Hospital Cardiology [place]counter [place]az [place] [address], [address] [place] [phone] CATHETERIZATION RIGHT HEART 03/27/2021 Surgery Cardiology Date/Time Name Priority Associated Diagnose s 03/27/2021 9:05 AM GAMB CUTTER CATHETERIZATION RIGHT HEART Nonrheumatic tricuspid valve regurgitation documented as of this encounter Goals Goal Patient Associated Recent Progress Patient-Stat Aut hor Goal Type Problems ed? [facility] On track (10/23/2020 Yes Sheldon, 1:06 [...] Concerns Noted Time Assessment 02/19/2021 8:13 AM GAMB CUTTER A fall risk assessment has been complet ed for the patient 12/07/2020 3:18 PM CDT PHQ-2 Depression Total Score: 2 documented as of this encounter Care Teams Start Date End Date Auto Parts Salesperson Relationship Specialty 05/15/20 Garfield Gray MD PCP - [address] [address] 06/13/20 Riley Hopson MD Consulting Cardiovascul [address] Physician ar Disease [address] [place], [place] [address] 12/20/20 Gino Pandya, BEHAVIORAL SERVICES TECH-CONCRETE BUCKET LOADER Nurse Nurse [address] [place] [address] 01/19/21 Teri Brandon Continuum of Care Case Management documented as of this encounter
--- OUTSIDE RECORDS SUMMARY | 2021-03-11 12:18 | XMS REPORT | Encounter Summary ---
Author Author [facility] Organization [facility] Address Unknown Phone Unavailable Care Team Providers Care Cook Sauce Name Role Phone Self, Garfield OLVERA PCP Riley Hopson MD [phone] Gino Pandya APRN-CANDY STARCH MOLD PRINTER [phone] Caitlin Desai [phone] Unavailable Reason for Visit * Reason Comments Labs Only Encounter Details Care Team Description Date Type Department Kathryn Barbosa MA Labs Only 01/15/2021 Documentation Cardiology: [facility] [id number] [place] [address] Social History Date Tobacco Use Types Packs/Day Years Used Never Smoker Smokeless Tobacco: Never Used Comments Alcohol Use Standard Drinks/Week Not Currently 0 (1 standard drink = 0.6 o z pure alcohol) Sex Assigned at Date Recorded Female 06/01/2020 1:44 PM HOSPITAL ACCOUNT MANAGER Date Recorded COVID-19 Exposure Response 01/11/2021 2:59 PM CDT In the last month, [...] Date Type Specialty Carlos Longo MD [address] [facility] [id number] [place] [address] [place] [address] [place] [phone] 03/22/2021 Hospital Radiology [place] [id number] [place] [phone] Nonrheumatic tricuspid valve regurgitati on 03/27/2021 Hospital Cardiology [place]az [place] [id number] [place] [phone] CATHETERIZATION RIGHT HEART 03/27/2021 Surgery Cardiology Date/Time Name Priority Associated Diagnose s 03/27/2021 9:05 AM HOSPITAL ACCOUNT MANAGER CATHETERIZATION RIGHT HEART Nonrheumatic tricuspid valve regurgitation documented as of this encounter Goals Goal Patient Associated Recent Progress Patient-Stat Aut hor Goal Type Problems ed? [facility] On track (10/23/2020 Yes Sheldon, 1:06 PM CDT) CHRYSTAL Singh [facility] On track (12/25/2020 Yes Sheldon, 2:41 PM CDT) CHRYSTAL Singh Note: "To get better and stronger." documented as of this encounter Procedures Comments Procedure Name Priority Date/Time Associated Diag nosis PROTIME INR (PT) Routine 01/15/2021 Paroxysmal at rial fibrillation (HCC) documented in this encounter Results * (ABNORMAL) PROTIME INR (PT) (01/15/2021) INR 6.0 (>) 1.7 - 2.0 [facility] Specimen Blood specimen (specimen) - Blood Narrative Performing Organization Address City/State/ZIP Code P shane Number MAIN LAB [address] [place] [address] documented in this encounter Visit Diagnoses Diagnosis Paroxysmal atrial fibrillation (HCC) Atrial fibrillation Nonrheumatic tricuspid valve regurgitat ion Tricuspid valve disorders, specified as nonrheumatic documented in this encounter Additional Health Concerns Noted Time Assessment 01/11/2021 3:09 PM CDT A fall risk assessment has been complet ed for the patient 12/07/2020 3:18 PM CDT PHQ-2 Depression Total Score: 2 documented as of this encounter Care Teams Start Date End Date Cook Sauce Relationship Specialty 05/15/20 Garfield Gray MD PCP - [address] [id number] 06/13/20 Riley Hopson MD Consulting Cardiovascul [address] Physician ar Disease [address] [place], [place] [address] 12/20/20 Gino Pandya, FACTORY SUPERINTENDENT-CANDY STARCH MOLD PRINTER Nurse Nurse [address] [address] 12/25/20 01/16/21 Caitlin Desai [facility] Case Management documented as of this encounter
--- OUTSIDE RECORDS SUMMARY | 2021-03-11 12:18 | XMS REPORT | Encounter Summary ---
Author Author [facility] Organization [facility] Address Unknown Phone Unavailable Care Team Providers Care Wood Last Maker Name Role Phone Self, Garfield OLVERA PCP Riley Hopson MD [phone] Gino Pandya FINAL INSPECTOR PAPER-TRACK ANNOUNCER [phone] Teri Brandon [phone] Unavailable Reason for Referral * Radiology Services (Routine) - Authorized Diagnoses / Procedures Referred By Contact [facility] Chronic heart failure with preserved ejection fraction (HCC) RVF (right ventricular failure) (HCC) Other cirrhosis of liver (HCC) Procedures IR PARACENTESIS THERAPEUTIC Carlos Longo MD [address] [address] [place] [place] [address] [place] [address] Radiology Referral ID Status Reason Start Date Expiration Visits Vi sits Date Requested Authorized [id number] Authorized 01/22/2021 01/22/2022 20 20 Reason for Visit * Reason Onset Date Comments Abdomen Swelling 01/22/2021 Encounter Details Care Team Description Date Type Department Susan Palomino RN Abdomen Swelling 01/22/2021 Telephone [facility] [address] [place] [phone] Social History Date Tobacco Use Types Packs/Day Years Used Never Smoker Smokeless Tobacco: Never Used Comments Alcohol Use Standard Drinks/Week Not Currently 0 (1 standard drink = 0.6 o z pure alcohol) Sex Assigned at Date Recorded Female 06/01/2020 1:44 PM QUALITY COMPLIANCE COORDINATOR Date Recorded COVID-19 Exposure Response 01/11/2021 2:59 [...] Telephone Encounter - Susan Palomino RN - 01/22/2021 4:56 PM CDT Placed order for paracentesis to be done every 2 weeks, starting tomorrow. Called IR scheduled Para to be done tomorrow. Called and spoke to patient she is agreeable to plan and will also have her lab work due on 01/18 completed at that time. At this time patient has no further qu estions or concerns. * Telephone Encounter - Susan Palomino RN - 01/22/2021 4:22 PM CDT ----- Message from HOSSEIN Santo sent at 01/22/2021 3:55 PM CDT --- -- Regarding: FW: Hepatology Follow up Dr. Longo is very aware of this patient and has stated that we are going to assu me care for her diuresis so please arrange her for a therapeutic paracentesis to be done at [facility] (I believe this is the best location for). Also see wh at would need to be done to make this on a frequent basis/as needed. I believe she will need this approximately every 2 weeks. ThanksBerna ----- Message ----- From: Sherin Mata BSN Sent: 01/22/2021 3:37 PM CDT To: HOSSEIN Santo Subject: RE: Hepatology Follow up Ned Coronel! I received message from Ms. Paulson today that she is feeling poorly and wants to be "Tapped". Kayla sent messages to BOBBY(Tonja), BUCK, Off this week and IDA(no reap onse yet). Here is the message I sent: Zaria Paulson is complaining about increased abd swelling and discomfort. She de nies SOA, but her weight has increased 01/13- 124lbs to 132.8 today. She repor ts her color is good, bp-112/76. She says her HR is elevated when she first ge ts up(108) but comes down to 100 when she's up and not moving around. I believ e the last time they tapped her abdomen was 01/03 when she was in the hospital. Last lab work is from 01/11- NA-130, Chl-95, Cr-1.62, Hgb-9.3, Hct-28.2 01/18 INR-1.2 Please advise. Sherin Can ----- Message ----- From: Nithya Madison APRN-NP Sent: 01/17/2021 9:30 AM CDT To: HOSSEIN Chow, # Subject: FW: Hepatology Follow up Can you please contact patient and see how she is doing in regards to her volume status. Please let her know that Dr. Marti and Dr. Longo have discussed her co ndition and is felt that her cirrhosis (abdominal bloating) is felt to be due co ngestion from to her worsening heart failure. We will continue to adjust diuret ics and she may need to continue with therapeutic paracentesis. Also see if we can arrange for her to see Gino again with her next heart failure appointment. Berna Can ----- Message ----- From: Carlos Longo MD Sent: 01/16/2021 5:47 PM CDT To: Allison Marti MD, HOSSEIN Santo, # Subject: RE: Hepatology Follow up Thank you for your input Dr. Marti. Always very thoughtful. We will continue to manage her. Berna, Please see if we can provide palliative options. If she requires hospitalization, we will be happy to assist as I am on consult service. I have not seen her for a while. ----- Message ----- From: Allison Marti MD Sent: 01/16/2021 1:41 PM CDT To: Carlos Longo MD, HOSSEIN Santo, # Subject: RE: Hepatology Follow up Dr. Longo: As you can tell from both the liver biopsy AND the RHC she has significant cardi ac dysfunction. Whether or not it is her heart or her cirrhosis (or more likely some of both), the principes of management are the same, sodium restriction and diuretics. 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 Also her liver synthetic function is quite well preserved (normal bilirubin and normal INR when not on a nticoagulation). The mere presence of cirrhosis on biopsy does not equate with a scites, ascites does equate with portal hypertension. In Ms. 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 If she needs scheduled paracentesis, we can set this up but she has not required this in the past, but things change. There is no cure for cirrhosis short of li minal transplant and her cardiac findings will preclude consideration for transpla nt. What she does not need is two different people managing her diuretics. Please call me if you have questions or would prefer we manage her diuretics. CONSTANCE ----- Message ----- From: Carlos Longo MD Sent: 01/15/2021 4:28 PM CDT To: Allison Marti MD, HOSSEIN Santo, # Subject: Hepatology Follow up Thank you Berna appreciate your note, as we suspected previously that we are gilmar ling primarily with liver cirrhosis, and associated complications, I would appreciate liver cirrhosis hepatology team to provide expertise in this matter. I am copying Dr. Sow and Dr. Miller Also please do see that patient also get palliative care assessment if not done so already Carlos Longo MD, [facility] Department of Cardiovascular Medicine [facility] Pager: [phone] ----- Message ----- From: Nithya Madison APRN-NP Sent: 01/11/2021 4:56 PM CDT To: Carlos Longo MD Az. I saw Ms. Paulson today in clinic for her post hospital follow-up. I am con cerned that we do not have a good plan for her moving forward in regards to what I perceive cirrhosis. She has had 6 hospitalizations in the last year, for michael ng with volume overload. She has undergone paracentesis in a month's time, on 12 02 they removed 6300 mL, on 12/23 4300 mL, and on 01/02 5300 mL. She did not hav e any follow-up with hepatology post discharge. I have asked her to make an kirti ointment as soon as possible. I know previously it was not felt to be due to he r liver but I I struggle with thinking that that is not the significant part of this. Since being discharged a week ago, she is up 2 pounds and her abdominal b loating is starting to progress. I have adjusted her diuretics and will try to keep a close eye on her but wanted to discuss with you to see what the next step s should be? Should we have some coordination with hepatology? There has been no mention of even doing therapeutic paracentesis as needed but believe that we will need some kind of plan for this or she will continue to be admitted. Appre ciate any insight you can give me. Thanks, Berna documented in this encounter Plan of Treatment Care Team Description Date Type Specialty Carlos Longo MD [address] [facility] [id number] [place] [address] [place] [address] [place] [phone] 03/22/2021 Hospital Radiology [place] [address] [place] [phone] Nonrheumatic tricuspid valve regurgitati on 03/27/2021 Hospital Cardiology [place] [address] [place] [phone] CATHETERIZATION RIGHT HEART 03/27/2021 Surgery Cardiology Order Schedule Name Type Priority Associated Diag noses Every 2 Weeks Auto for [address] arting 01/22/2021 until 01/22/2022, 7 completed IR PARACENTESIS Imaging Routine Chronic heart failure THERAPEUTIC with preserved ejection fraction (HCC) RVF (right ventricular failure) (HCC) Other cirrhosis of liver (HCC) Date/Time Name Priority Associated Diagnose s 03/27/2021 9:05 AM QUALITY COMPLIANCE COORDINATOR CATHETERIZATION RIGHT HEART Nonrheumatic tricuspid valve regurgitation documented as of this encounter Goals Goal Patient Associated Recent Progress Patient-Stat Aut hor Goal Type Problems ed? [facility] On track (10/23/2020 Yes Sheldon, 1:06 PM CDT) CHRYSTAL Singh [facility] On track (12/25/2020 Yes Sheldon, 2:41 PM CDT) CHRYSTAL Singh Note: "To get better and stronger." documented as of this encounter Results * IR PARACENTESIS THERAPEUTIC (03/08/2021 8:32 AM QUALITY COMPLIANCE COORDINATOR) Modality Anatomical Region Laterality Ultrasound Specimen Impressions [facility] RES[facility] - 03/08/2021 11:35 AM QUALITY COMPLIANCE COORDINATOR IMPRESSION: Ultrasound guided paracentesis with removal of 1.9 liters of fluid. Karsten Toribio M.D., the attending radiologist, was present for the procedure, personally reviewed the images, and formulated the interpretations and opinions expressed in this report. @TT Finalized by Karsten Griffiths M.D. on 03/08/2021 11:35 AM. Dictated by Karsten Griffiths M.D. on 03/08/2021 11:35 AM. Narrative [facility] RESULTS - 03/08/2021 11:35 AM QUALITY COMPLIANCE COORDINATOR Exam: Ultrasound-guided paracentesis. History: Ascites. Technique: After obtaining informed written consent the patient was placed supine on the procedure table. Using ultrasound guidance, an appropriate insertion site in the right lower quadrant was marked. The patient was prepped and draped in the usual sterile fashion. Lidocaine was used for local anesthesia. A Ldh-K-Njkvmqbu needle was inserted into the abdomen, with [...] Lidocaine was used for local anesthesia. A Kvl-T-Bjbyhbac needle was inserted into the abdomen, with return of clear yellow fluid. Fluid was removed, the total amount as listed below. The needle was removed. Hemostasis was achieved using manual compression. The patient tolerated procedure well, and left the department in good condition. IMPRESSION IMPRESSION: Ultrasound guided paracentesis with removal of 1.9 liters of fluid. Karsten Toribio M.D., the attending radiologist, was present for the procedure, personally reviewed the images, and formulated the interpretations and opinions expressed in this report. @TT Finalized by Karsten Griffiths M.D. on 03/08/2021 11:35 AM. Dictated by Karsten Griffiths M.D. on 03/08/2021 11:35 AM. Performing Organization Address City/State/ZIP Code P shane Number [facility] RESULTS * IR PARACENTESIS THERAPEUTIC (03/05/2021 9:32 AM QUALITY COMPLIANCE COORDINATOR) Modality Anatomical Region Laterality Ultrasound Specimen Impressions [facility]ULTS - 03/05/2021 4:20 PM QUALITY COMPLIANCE COORDINATOR IMPRESSION: Successful ultrasound guided paracentesis with removal of 3.6 liters of fluid. Ruddy Toribio M.D., the attending radiologist, was present for the procedure, personally reviewed the images, and formulated the interpretations and opinions expressed in this report. @TT Finalized by RUDDY CONNELLY on 03/05/2021 4:20 PM. Dictated by RUDDY CONNELLY on 03/05/2021 4:19 PM. Narrative [facility] RESULTS - 03/05/2021 4:20 PM QUALITY COMPLIANCE COORDINATOR Reason for exam: Paracentesis, ascites. Operators: Ruddy [...] lidocaine was used for local anesthesia. A Zyt-M-Oiznzwcg needle was inserted into the abdomen, with [...] lidocaine was used for local anesthesia. A Hvm-X-Nltbodtu needle was inserted into the abdomen, with [...] shane Number [facility] RESULTS * IR PARACENTESIS THERAPEUTIC (03/02/2021 4:19 PM QUALITY COMPLIANCE COORDINATOR) Modality Anatomical Region Laterality Ultrasound Specimen Impressions [facility] RESULTS - 03/02/2021 4:31 PM QUALITY COMPLIANCE COORDINATOR IMPRESSION: Ultrasound guided paracentesis with removal of 6.2 liters of fluid. Karsten Toribio M.D., the attending radiologist, was present for the procedure, personally reviewed the images, and formulated the interpretations and opinions expressed in this report. @TT Finalized by Karsten Griffiths M.D. on 03/02/2021 4:31 PM. Dictated by Karsten Griffiths M.D. on 03/02/2021 4:31 PM. Narrative [facility] RESULTS - 03/02/2021 4:31 PM QUALITY COMPLIANCE COORDINATOR Exam: Ultrasound-guided paracentesis. History: Ascites. Technique: After obtaining informed written consent the patient was placed supine on the procedure table. Using ultrasound guidance, an appropriate insertion site in the right lower quadrant was marked. The patient was prepped and draped in the usual sterile fashion. Lidocaine was used for local anesthesia. A Aou-K-Rryivwwo needle was inserted into the abdomen, with [...] Lidocaine was used for local anesthesia. A Ied-J-Cokcczou needle was inserted into the abdomen, with return of clear yellow fluid. Fluid was removed, the total amount as listed below. The needle was removed. Hemostasis was achieved using manual compression. The patient tolerated procedure well, and left the department in good condition. IMPRESSION IMPRESSION: Ultrasound guided paracentesis with removal of 6.2 liters of fluid. IKarsten M.D., the attending radiologist, was present for the procedure, personally reviewed the images, and formulated the interpretations and opinions expressed in this report. @TT Finalized by Karsten Griffiths M.D. on 03/02/2021 4:31 PM. Dictated by Karsten Griffiths M.D. on 03/02/2021 4:31 PM. Performing Organization Address City/State/ZIP Code P shane Number [facility] RESULTS * IR PARACENTESIS THERAPEUTIC (02/19/2021 9:50 AM QUALITY COMPLIANCE COORDINATOR) Modality Anatomical Region Laterality Ultrasound Specimen Impressions [facility] RESULTS - 02/19/2021 10:05 AM QUALITY COMPLIANCE COORDINATOR 1. Successful ultrasound guided parace ntesis. Finalized by Scout Nelson M.D. on 02/19/2021 10:05 AM. Dictated by Scout Nelson M.D. on 02/19/2021 10:05 AM. Narrative [facility] RESULTS - 02/19/2021 10:05 AM QUALITY COMPLIANCE COORDINATOR Ultrasound-guided paracentesis CLINICAL INDICATION: Ascites MEDICATIONS: I was personally responsible for the administration of moderate sedation services during the procedure performed and I confirm requirements described in CPT section on moderate sedation were followed, including the use of an independent trained observer who had no other duties during the procedure. See nursing log for complete details; the drugs utilized were: subcutaneous Lidocaine 2% MOBILE EQUIPMENT MECHANIC: Scout Nelson M.D. TECHNIQUE: Transverse real time images were obtained through the abdomen. The risks and benefits of this procedure were discussed and informed written consent was obtained prior to performing the procedure. The abdomen was then prepped and draped in usual sterile fashion. Limited ultrasound of the abdomen was performed. Under ultrasound guidance, a 5 [place] centesis needle was advanced into the peritoneal [...] peritoneal fluid demonstrated on ultrasound. Procedure Note Leslie, Scout M, MD - 02/19/2021 Ultrasound-guided paracentesis CLINICAL INDICATION: [...] the drugs utilized were: subcutaneous Lidocaine 2% MOBILE EQUIPMENT MECHANIC: Scout Nelson M.D. TECHNIQUE: Transverse real time images were obtained through the abdomen. The risks and benefits of this procedure were discussed and informed written consent was obtained prior to performing the procedure. The abdomen was then prepped and draped in usual sterile fashion. Limited ultrasound of the abdomen was performed. Under ultrasound guidance, a 5 [place] centesis needle was advanced into the peritoneal [...] shane Number [facility] RESULTS * IR PARACENTESIS THERAPEUTIC (02/12/2021 4:21 PM QUALITY COMPLIANCE COORDINATOR) Modality Anatomical Region Laterality Ultrasound Specimen Impressions [facility] RESULTS - 02/12/2021 4:53 PM QUALITY COMPLIANCE COORDINATOR 1. Successful ultrasound guided therap eutic paracentesis. Finalized by Blair Greene M.D. on 02/12/2021 4:53 PM. Dictated by Blair Greene M.D. on 02/12/2021 4:53 PM. Narrative [facility] RESULTS - 02/12/2021 4:53 PM QUALITY COMPLIANCE COORDINATOR Ultrasound-guided paracentesis CLINICAL INDICATION: Symptomatic ascites MEDICATIONS: 10 mL subcutaneous Lidocaine 2% MOBILE EQUIPMENT MECHANIC: Blair Greene M.D. TECHNIQUE: Transverse real time images were obtained through the abdomen. The risks and benefits of this procedure were discussed and informed written consent was obtained prior to performing the procedure. The abdomen was then prepped and draped in usual sterile fashion. Limited ultrasound of the abdomen was performed. Under ultrasound guidance, a 5 [place] centesis needle was advanced into the peritoneal [...] ascites MEDICATIONS: 10 mL subcutaneous Lidocaine 2% MOBILE EQUIPMENT MECHANIC: Blair Greene M.D. TECHNIQUE: Transverse real time images were obtained through the abdomen. The risks and benefits of this procedure were discussed and informed written consent was obtained prior to performing the procedure. The abdomen was then prepped and draped in usual sterile fashion. Limited ultrasound of the abdomen was performed. Under ultrasound guidance, a 5 [place] centesis needle was advanced into the peritoneal [...] ultrasound. IMPRESSION 1. Successful ultrasound guided therape [facility] paracentesis. Finalized by Blair Greene M.D. on 02/12/2021 4:53 PM. Dictated by Blair Greene M.D. on 02/12/2021 4:53 PM. Performing Organization Address City/State/ZIP Code P shane Number [facility] RESULTS * IR PARACENTESIS THERAPEUTIC (02/02/2021 4:19 PM QUALITY COMPLIANCE COORDINATOR) Modality Anatomical Region Laterality Ultrasound Specimen Impressions [facility] RESULTS - 02/03/2021 8:39 AM QUALITY COMPLIANCE COORDINATOR Successful ultrasound guided paracentesis. 7000 mL of fluid was removed. Giancarlo Toribio M.D, the attending radiologist, was present for the critical and turpin portions of the procedure with an advanced practice provider, resident, and/or fellow participating. Overlapping portions were non turpin and I was immediately available. I interpret the critical and turpin portion of this procedure to have been the procedural time out and needle access. @TT Approved by Cyrus Cr M.D. on 02/02/2021 4:33 PM By my electronic signature, I attest that I have personally reviewed the images for this examination and formulated the interpretations and opinions expressed in this report Finalized by Giancarlo Meneses M.D. on 02/03/2021 8:39 AM. Dictated by Cyrus Cr M.D. on 02/02/2021 4:33 PM. Narrative [facility] RESULTS - 02/03/2021 8:39 AM QUALITY COMPLIANCE COORDINATOR 7000 Ultrasound-guided paracentesis CLINICAL INDICATION: Ascites MOBILE EQUIPMENT MECHANIC: Cyrus Cr M.D. and Giancarlo Meneses M.D. MEDICATIONS: Lidocaine TECHNIQUE: Transverse real time images were obtained through the abdomen. The risks and benefits of this procedure were discussed and informed written consent was obtained prior to performing the procedure. The abdomen was then prepped and draped in usual sterile fashion. Limited ultrasound of the abdomen was performed. Under ultrasound guidance, a 5 [place]an centesis needle was advanced into the peritoneal fluid collection and catheter advanced into the collection over the needle, and needle was removed. The catheter was connected to Vacutainer bottles and 7000 mL fluid was removed. There were no immediate complications of the procedure. No significant blood loss. Patient tolerated procedure well. FINDINGS: Large volume free peritoneal fluid demonstrated on ultrasound. Procedure Note Giancarlo Meneses MD - 02/03/2021 7000 Ultrasound-guided paracentesis CLINICAL INDICATION: Ascites MOBILE EQUIPMENT MECHANIC: Cyrus Cr M.D. and Giancarlo Meneses M.D. MEDICATIONS: Lidocaine TECHNIQUE: Transverse real time images were obtained through the abdomen. The risks and benefits of this procedure were discussed and informed written consent was obtained prior to performing the procedure. The abdomen was then prepped and draped in usual sterile fashion. Limited ultrasound of the abdomen was performed. Under ultrasound guidance, a 5 [place] centesis needle was advanced into the peritoneal fluid collection and catheter advanced into the collection over the needle, and needle was removed. The catheter was connected to Vacutainer bottles and 7000 mL fluid was removed. There were no immediate complications of the procedure. No significant blood loss. Patient tolerated procedure well. FINDINGS: Large volume free peritoneal fluid demonstrated on ultrasound. IMPRESSION Successful ultrasound guided paracentesis. 7000 mL of fluid was removed. I, Giancarlo Meneses M.D, the attending radiologist, was present for the critical and turpin portions of the procedure with an advanced practice provider, resident, and/or fellow participating. Overlapping portions were non turpin and I was immediately available. I interpret the critical and turpin portion of this procedure to have been the procedural time out and needle access. @TT Approved by Cyrus Cr M.D. on 02/02/2021 4:33 PM By my electronic signature, I attest that I have personally reviewed the images for this examination and formulated the interpretations and opinions expressed in this report Finalized by Giancarlo Meneses M.D. on 02/03/2021 8:39 AM. Dictated by Cyrus Cr M.D. on 02/02/2021 4:33 PM. Performing Organization Address City/State/ZIP Code P shane Number [facility] RESULTS * IR PARACENTESIS THERAPEUTIC (01/23/2021 3:18 PM CDT) Modality Anatomical Region Laterality X-Ray Angiography Specimen Impressions [facility] RESULTS - 01/23/2021 4:53 PM CDT 1. Successful ultrasound guided parace ntesis. Finalized by Scout Nelson M.D. on 01/23/2021 4:53 PM. Dictated by Scout Nelson M.D. on 01/23/2021 4:53 PM. Narrative [facility] RESULTS - 01/23/2021 4:53 PM CDT Ultrasound-guided paracentesis CLINICAL INDICATION: Ascites MEDICATIONS: I was personally responsible for the administration of moderate sedation services during the procedure performed and I confirm requirements described in CPT section on moderate sedation were followed, including the use of an independent trained observer who had no other duties during the procedure. See nursing log for complete details; the drugs utilized were: subcutaneous Lidocaine 2% MOBILE EQUIPMENT MECHANIC: Scout Nelson M.D. TECHNIQUE: Transverse real time images were obtained through the abdomen. The risks and benefits of this procedure were discussed and informed written consent was obtained prior to performing the procedure. The abdomen was then prepped and draped in usual sterile fashion. Limited ultrasound of the abdomen was performed. Under ultrasound guidance, a 5 [place] centesis needle was advanced into the peritoneal fluid collection and catheter advanced into the collection over the needle, and needle was removed. Images were sent to PACS. The catheter was connected to Vacutainer bottles and 7700 mL fluid was removed. There were no immediate complications of the procedure. No significant blood loss. Patient tolerated procedure well. FINDINGS: Free peritoneal fluid demonstrated on ultrasound. Procedure Note Scout Nelson MD - 01/23/2021 Ultrasound-guided paracentesis CLINICAL INDICATION: Ascites MEDICATIONS: I was personally responsible for the administration of moderate sedation services during the procedure performed and I confirm requirements described in CPT section on moderate sedation were followed, including the use of an independent trained observer who had no other duties during the procedure. See nursing log for complete details; the drugs utilized were: subcutaneous Lidocaine 2% MOBILE EQUIPMENT MECHANIC: Scout Nelson M.D. TECHNIQUE: Transverse real time images were obtained through the abdomen. The risks and benefits of this procedure were discussed and informed written consent was obtained prior to performing the procedure. The abdomen was then prepped and draped in usual sterile fashion. Limited ultrasound of the abdomen was performed. Under ultrasound guidance, a 5 Sri [place]an centesis needle was advanced into the peritoneal fluid collection and catheter advanced into the collection over the needle, and needle was removed. Images were sent to PACS. The catheter was connected to Vacutainer bottles and 7700 mL fluid was removed. There were no immediate complications of the procedure. No significant blood loss. Patient tolerated procedure well. FINDINGS: Free peritoneal fluid demonstrated on ultrasound. IMPRESSION 1. Successful ultrasound guided paracen tesis. Finalized by Scout Nelson M.D. on 01/23/2021 4:53 PM. Dictated by Scout Nelson M.D. on 01/23/2021 4:53 PM. Performing Organization Address City/State/ZIP Code P shane Number [facility] RESULTS documented in this encounter Visit Diagnoses Diagnosis Chronic heart failure with preserved ej ection fraction (HCC) - Primary RVF (right ventricular failure) (HCC) Congestive heart failure, unspecified Other cirrhosis of liver (HCC) Chronic heart failure with preserved ej ection fraction (HCC) RVF (right ventricular failure) (HCC) Congestive heart failure, unspecified Other cirrhosis of liver (HCC) Stage 3b chronic kidney disease (HCC) Chronic heart failure with preserved ej ection fraction (HCC) RVF (right ventricular failure) (HCC) Congestive heart failure, unspecified Other cirrhosis of liver (HCC) Chronic heart failure with preserved ej ection fraction (HCC) RVF (right ventricular failure) (HCC) Congestive heart failure, unspecified Other cirrhosis of liver (HCC) Chronic heart failure with preserved ej ection fraction (HCC) RVF (right ventricular failure) (HCC) Congestive heart failure, unspecified Other cirrhosis of liver (HCC) Paroxysmal atrial fibrillation (HCC) Atrial fibrillation Chronic heart failure with preserved ej ection fraction (HCC) RVF (right ventricular failure) (HCC) Congestive heart failure, unspecified Other cirrhosis of liver (HCC) Chronic heart failure with preserved ej ection fraction (HCC) RVF (right ventricular failure) (HCC) Congestive heart failure, unspecified Other cirrhosis of liver (HCC) Chronic heart failure with preserved ej ection [...] encounter Care Teams Start Date End Date Wood Last Maker Relationship Specialty 05/15/20 Garfield Gray MD PCP - [address] [address] 06/13/20 Riley Hopson MD Consulting Cardiovascul [address] Physician ar Disease [address] [place], [place] [address] 12/20/20 Gino Pandya, FINAL INSPECTOR PAPER-TRACK ANNOUNCER Nurse Nurse [address] [place] [address] 01/19/21 Teri Brandon Continuum of Care Case Management documented as of this encounter
--- OUTSIDE RECORDS SUMMARY | 2021-03-11 12:18 | XMS REPORT | Encounter Summary ---
Author Author [facility] Organization [facility] Address Unknown Phone Unavailable Care Team Providers Care Cement Breaker Name Role Phone Self, Garfield OLVERA PCP Riley Hopson MD [phone] Gino Pandya APRN-SUPERVISOR NUTRITIONAL YEAST [phone] Teri Brandon [phone] Unavailable Encounter Details Care Team Description Date Type Department Josi Purvis BSN Paroxysmal atrial fibrillation (HCC) 01/25/2021 Orders Only Cardiology: [facility] [address] [place] [address] 1, [address] [place] [address] Social History Date Tobacco Use Types Packs/Day Years Used Never Smoker Smokeless Tobacco: Never Used Comments Alcohol Use Standard Drinks/Week Not Currently 0 (1 standard drink = 0.6 o z pure alcohol) Sex Assigned at Date Recorded Female 06/01/2020 1:44 PM 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 TECHNICIAN Date Recorded COVID-19 Exposure Response 01/23/2021 1:48 [...] Date Type Specialty Carlos Longo MD [address] [facility] [id number] [place], [place] [phone] [place] [address], [address] [place] [phone] 03/22/2021 Hospital Radiology [place] [address], [address] [place] [phone] Nonrheumatic tricuspid valve regurgitati on 03/27/2021 Hospital Cardiology [place]counter [place] Almaraz [place] [address], [address] [place] [phone] CATHETERIZATION RIGHT HEART 03/27/2021 Surgery Cardiology Date/Time Name Priority Associated Diagnose s 03/27/2021 9:05 AM CMM TECHNICIAN CATHETERIZATION RIGHT HEART Nonrheumatic tricuspid valve regurgitation documented as of this encounter Goals Goal Patient Associated Recent Progress Patient-Stat Aut hor Goal Type Problems ed? Improve [facility] On track (10/23/2020 Yes Sheldon, 1:06 PM CDT) CHRYSTAL Singh [facility] On track (12/25/2020 Yes Sehldon, 2:41 PM CDT) CHRYSTAL Singh Note: "To get better and stronger." documented as of this encounter Procedures Comments Procedure Name Priority Date/Time Associated Diag nosis PROTIME INR (PT) Routine 01/25/2021 Paroxysmal at rial fibrillation (HCC) documented in this encounter Results * (ABNORMAL) PROTIME INR (PT) (01/25/2021) INR 1.2 1.5 - 2.0 [facility] Specimen Blood specimen (specimen) - Blood Narrative Performing Organization Address City/State/ZIP Code P shane Number [facility] [address] [phone] documented in this encounter Visit Diagnoses Diagnosis Paroxysmal atrial fibrillation (HCC) Atrial fibrillation Nonrheumatic tricuspid valve regurgitat ion Tricuspid valve disorders, specified as nonrheumatic documented in this encounter Additional Health Concerns Noted Time Assessment 01/23/2021 2:20 PM CDT A fall risk assessment has been complet ed for the patient 12/07/2020 3:18 PM CDT PHQ-2 Depression Total Score: 2 documented as of this encounter Care Teams Start Date End Date Cement Breaker Relationship Specialty 05/15/20 Garfield Gray MD PCP - [address] [phone] 06/13/20 Riley Hopson MD Consulting Cardiovascul [address] [place] [address] Physician ar Disease [address] [place], [place] [address] 12/20/20 Gino Pandya, METAL ENGINEERING PROCESS WORKER-SUPERVISOR NUTRITIONAL YEAST Nurse Nurse [address] [place] [phone] 01/19/21 Teri Brandon Continuum of Care Case Management documented as of this encounter
--- OUTSIDE RECORDS SUMMARY | 2021-03-11 12:18 | XMS REPORT | Encounter Summary ---
Author Author [facility] Organization [facility] Address Unknown Phone Unavailable Care Team Providers Care Fishing Captain Name Role Phone Self, Garfield OLVERA PCP Riley Hopson MD [phone] Gino Pandya APRN-MILITARY POLICE OFFICER [phone] Caitlin Desai [phone] Unavailable Encounter Details Care Team Description Date Type Department Sherin Mata BSN 01/15/2021 Telephone Cardiology: [facility] [address] [facility] [address], [address] [place] [address] Social History Date Tobacco Use Types Packs/Day Years Used Never Smoker Smokeless Tobacco: Never Used Comments Alcohol Use Standard Drinks/Week Not Currently 0 (1 standard drink = 0.6 o z pure alcohol) Sex Assigned at Date Recorded Female 06/01/2020 1:44 PM 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 CASTINGS Date Recorded COVID-19 Exposure Response 01/11/2021 2:59 [...] Date Type Specialty Carlos Longo MD [address] [facility] [place] [address] [place] [address], [address] [place] [phone] 03/22/2021 Hospital Radiology [place] Almaraz [place] [address], [address] [place] [phone] Nonrheumatic tricuspid valve regurgitati on 03/27/2021 Hospital Cardiology Encounter [place] Almaraz MD [address], [address] [place] [phone] CATHETERIZATION RIGHT HEART 03/27/2021 Surgery Cardiology Date/Time Name Priority Associated Diagnose s 03/27/2021 9:05 AM DRAFTER CASTINGS CATHETERIZATION RIGHT HEART Nonrheumatic tricuspid valve regurgitation documented as of this encounter Goals Goal Patient Associated Recent Progress Patient-Stat Aut hor Goal Type Problems ed? Improve [facility] On track (10/23/2020 Yes Sheldon, 1:06 PM CDT) CHRYSTAL Singh [facility] On track (12/25/2020 Yes Sheldon, 2:41 [...] encounter Care Teams Start Date End Date Fishing Captain Relationship Specialty 05/15/20 Garfield Gray MD PCP - General [address] [address] 06/13/20 Riley Hopson MD Consulting Cardiovascul [address] Physician ar Disease [address] [place] [address] 12/20/20 Gino Pandya, STATE FEDERAL RELATIONS DEPUTY DIRECTOR-MILITARY POLICE OFFICER Nurse Nurse [address] [place] [address] 12/25/20 01/16/21 Caitlin Desai Continuum of Care Case Management documented as of this encounter
--- OUTSIDE RECORDS SUMMARY | 2021-03-11 12:18 | XMS REPORT | Encounter Summary ---
Author Author [facility] Organization [facility] Address Unknown Phone Unavailable Care Team Providers Care Music Department Chair Name Role Phone Self, Garfield OLVERA PCP Riley Hopson MD [phone] Gino Pandya APRN-NUT FORMER [phone] Reason for Referral * Consult, Test & Treat (Routine) - Authorized Diagnoses / Procedures Referred By Contact [facility]oses Chronic heart failure with preserved ejection fraction (HCC) Nithya Madison, INVESTOR RELATIONS SPECIALIST-NUT FORMER [address] [place] [address] [address] [address] [facility] [address] [address], [address] [place] [address] Cardiology Referral ID Status Reason Start Date Expiration Visits Vi sits Date Requested Authorized [id number] Authorized Specialty Services 01/17/2021 01/17/2022 1 1 Required Comments Please schedule same day as next follow up appointment 03/13. Reason for Visit * Reason Onset Date Comments Lab Results 01/17/2021 BMP orders, follow up, symptom check Encounter Details Care Team Description Date Type Department Allegra Cotter BSN Lab Results (BMP orders, follow up, symp shazia check) 01/17/2021 Telephone Cardiology: [facility] [address] [facility] 1, [address] [place] [phone] Social History Date Tobacco Use Types Packs/Day Years Used Never Smoker Smokeless Tobacco: Never Used Comments Alcohol Use Standard Drinks/Week Not Currently 0 (1 standard drink = 0.6 o z pure alcohol) Sex Assigned at Date Recorded Female 06/01/2020 1:44 PM COOK PICKLED MEAT Date Recorded COVID-19 Exposure Response 01/11/2021 2:59 [...] encounter Miscellaneous Notes * Telephone Encounter - Wanda Goodman BSN - 01/17/2021 2:15 PM CDT Spoke with patient regarding oxygen questions and update on symptoms with lab or ders and follow up. She said she is feeling okay, had some stomach pains previou sly that subsided for now. She states she is up about 3 pounds from yesterday, b ut she is having labs drawn tomorrow and would like to see what her weight is to alicea before addressing it. Lab orders placed for 2-3 week labs to be done, riddhi coello fax order to [email or web address]. Will update Berna on patient weight and labs for tyrone rrow. Instructed her diuretic adjustment and reducing sodium will help with her symptoms. Order placed for follow up with Gino at next appt. Will message kia vivas. * Telephone Encounter - Wanda Goodman BSN - 01/17/2021 2:08 PM CDT Images from the original note were not included. Nithya Madison APRN-NP P Cvm Nurse Hf Team Libby Cc: Basilia Gaitan APRN-NP; Gino Pandya APRN-NP Can you please contact patient and see how she is doing in regards to her volume status. Please let her know that Dr. Marti and Dr. Longo have discussed her c ondition and is felt that her cirrhosis (abdominal bloating) is felt to be due c ongestion from to her worsening heart failure. We will continue to adjust diur etics and she may need to continue with therapeutic paracentesis. Also see if we can arrange for her to see Gino again with her next heart failure appointmen t. Berna Can * Telephone Encounter - Wanda Goodman BSN - 01/17/2021 1:46 PM CDT Images from the original note were not included. FW: Prescription Question Received: Today Nithya Madison APRN-NP P Cvm Nurse Hf Team Gibran Cc: Basilia Gaitan APRN-NP Previously with her GI bleed and low hemoglobin she may have not had enough oxyg en carrying capacity but her hemoglobin has started to stabilize. I reviewed h er oxygen saturations in the hospital and they appear to be above 90. I do not believe oxygen would benefit her at this time but will continue to monitor this. Her shortness of breath is related to her heart failure along with ascites. Her best options are to try to keep fluid under control. I had sent the previous message to assess her symptoms, not sure if that call is taken place yet or not. We will need to keep a close eye on her and attempt to best manage her volume overload. She may need frequent therapeutic paracente sis in the future to help with this as well. Berna Can Previous Messages ----- Message ----- From: Wanda Goodman BSN Sent: 01/17/2021 11:49 AM CDT To: HOSSEIN Chavez, * Subject: FW: Prescription Question Hi Basilia trujillo Berna, Seems both of you have seen Zaria recently and are continuing to follow up, and s he sent a MyChart message addressed to each of you. She is having labs done tomorrow. She is researching her condition and asking if oxygen would benefit her. I am not sure what lab she is referring to, if she is asking for ABG maybe? Here is her other message she sent: "I have a question. I've been reading on my condition. I wonder how much oxygen is showing in my blood? Would using oxygen help in dropping the fluid? Not neckatie blanca have to have forever, but as a treatment for fluid. Would this benefit me ? " Do either of you want to make a recommendation regarding oxygen? Or add on any l abs? Thank you, Wanda * Telephone Encounter - Allegra Cotter BSN - 01/17/2021 11:24 AM CDT ----- Message from HOSSEIN Santo sent at 01/17/2021 11:20 AM CDT -- --- Creatinine is elevated but given her increased volume will make any changes to h er diuretics at this time (unless she is having worsening symptoms in which we m ay have to increase that again). Have her check BMP and 2-3 weeks. Thanks, Fran camara ----- Message ----- From: Basilia Gaitan APRN-NP Sent: 01/16/2021 4:59 PM CDT To: HOSSEIN Santo You saw her on 01/11. Not sure if these were available at the time of your visi t with her. documented in this encounter Plan of Treatment Care Team Description Date Type Specialty [facility]o MD [address] [facility] [place] [address] [place] [address], [address] [place] [address] 03/22/2021 Hospital Radiology Encounter Jacob Almaraz [place] [address], [address] [place] [address] Nonrheumatic tricuspid valve regurgitati on 03/27/2021 Hospital Cardiology [place] [address], [address] [place] [address] CATHETERIZATION RIGHT HEART 03/27/2021 Surgery Cardiology Order Schedule Name Type Priority Associated Diag noses Expected: 01/31/2021 (Approximate), Expi res: 01/17/2022 BASIC METABOLIC PANEL Lab Routine Chronic heart failure with preserved ejection fraction (HCC) Date/Time Name Priority Associated Diagnose s 03/27/2021 9:05 AM COOK PICKLED MEAT CATHETERIZATION RIGHT HEART Nonrheumatic tricuspid valve regurgitation Order Schedule Name Type Priority Associated Diag noses Ordered: 01/17/2021 AMB REFERRAL PALLIATIVE Outpatient Routine Chroni c heart failure CARE Referral with preserved ejec tion fraction (HCC) documented as of this encounter Goals Goal Patient Associated Recent Progress Patient-Stat Aut hor Goal Type Problems ed? Improve [facility] On track (10/23/2020 Yes Sheldon, 1:06 PM CDT) CHRYSTAL Singh [facility] On track (12/25/2020 Yes Sheldon, 2:41 PM CDT) CHRYSTAL Singh Note: "To get better and stronger." documented as of this encounter Visit Diagnoses Diagnosis Chronic heart failure with preserved ej ection fraction (HCC) - Primary Nonrheumatic tricuspid valve regurgitat ion Tricuspid valve disorders, specified as nonrheumatic * Addendum Note - Wanda Goodman BSN - 01/17/2021 2:27 PM CDT Addended by: WANDA GOODMAN on: 01/17/2021 02:27 PM Modules accepted: Orders documented in this encounter Additional Health Concerns Noted Time Assessment 01/11/2021 3:09 PM CDT A fall risk assessment has been complet ed for the patient 12/07/2020 3:18 PM CDT PHQ-2 Depression Total Score: 2 documented as of this encounter Care Teams Start Date End Date Music Department Chair Relationship Specialty 05/15/20 Garfield Gray MD PCP - [address] [address] 06/13/20 Riley Hopson MD Consulting Cardiovascul [address] Physician [address] Disease [address] [place], [place] [address] 12/20/20 Gino Pandya, INVESTOR RELATIONS SPECIALIST-NUT FORMER Nurse Nurse [address] [place] [phone] documented as of this encounter
--- OUTSIDE RECORDS SUMMARY | 2021-03-11 12:18 | XMS REPORT | Encounter Summary ---
Author Author [facility] Organization [facility] Address Unknown Phone Unavailable Care Team Providers Care Caterpillar Driver Name Role Phone Self, Garfield OLVERA PCP Riley Hopson MD [phone] Gino Pandya APRN-PATTERN GATER [phone] Teri Brandon [phone] Unavailable Reason for Visit * Reason Onset Date Comments Lab Results W/medication 01/24/2021 Changes Encounter Details Care Team Description Date Type Department Sathya Gutiérrez BSN Lab Results W/medication Changes 01/24/2021 Telephone Cardiology: [facility] [address] [place] [address] 1, [address] [place] [address] Social History Date Tobacco Use Types Packs/Day Years Used Never Smoker Smokeless Tobacco: Never Used Comments Alcohol Use Standard Drinks/Week Not Currently 0 (1 standard drink = 0.6 o z pure alcohol) Sex Assigned at Date Recorded Female 06/01/2020 1:44 PM PUBLIC HEALTH ADVISOR Date Recorded COVID-19 Exposure Response 01/23/2021 1:48 [...] Date End Date Prescription Sig Dispensed Refills 01/24/2021 02/06/2021 bumetanide (BUMEX) 1 mg Take five 240 tablet 0 tablet tablets by mouth twice daily for 30 days. documented in this encounter Miscellaneous Notes * Telephone Encounter - Sathya Gutiérrez BSN - 01/24/2021 1:46 PM CDT Spoke to pt re Berna SIMON recs Bumex 5 mg BID pt verb understanding sta lilliam has plenty of Bumex. Advised pt to have BMP drawn at next paracentesis pt s tates unable to schedule. CNC will contact IR and cb pt. Pt verb understanding . Call to IR they state will call pt to make appt now. * Telephone Encounter - Sathya Gutiérrez BSN - 01/24/2021 1:28 PM CDT ----- Message from HOSSEIN Santo sent at 01/24/2021 1:12 PM CDT --- -- With her creatinine improved lets go up on her Bumex to 5 mg twice daily to see if we can better control her volume and potentially put time in between her para centesis. Check BMP with her next paracentesis. Berna Can ----- Message ----- From: Sathya Gutiérrez BSN Sent: 01/24/2021 11:56 AM CDT To: HOSSEIN Santo BMP for your review Pt had drawn during paracentesis. Labs slt improved Creat & GFR Na+ remains low Per Susan Paracentesis has been order every other week Do you want labs with her pericementitises Please advise Thank you Sathya documented in this encounter Plan of Treatment Care Team Description Date Type Specialty Carlos Longo MD [address] [facility] [id number] [place] [address] [place] [address], [address] [place] [phone] 03/22/2021 Hospital Radiology Encounter Jacob Almaraz [place] [address], [address] [place] [phone] Nonrheumatic tricuspid valve regurgitati on 03/27/2021 Hospital Cardiology [place] [address], [address] [place] [phone] CATHETERIZATION RIGHT HEART 03/27/2021 Surgery Cardiology Order Schedule Name Type Priority Associated Diag noses Expected: 01/31/2021 (Approximate), Expi res: 01/24/2022 BASIC METABOLIC PANEL Lab Routine Non-isch emic cardiomyopathy (HCC) Chronic heart failure with preserved ejection fraction (HCC) Date/Time Name Priority Associated Diagnose s 03/27/2021 9:05 AM PUBLIC HEALTH ADVISOR CATHETERIZATION RIGHT HEART Nonrheumatic tricuspid valve regurgitation documented as of this encounter Goals Goal Patient Associated Recent Progress Patient-Stat Aut hor Goal Type Problems ed? Improve [facility] On track (10/23/2020 Yes Sheldon, 1:06 PM CDT) CHRYSTAL Singh [facility] On track (12/25/2020 Yes Sheldon, 2:41 PM CDT) CHRYSTAL Singh Note: "To get better and stronger." documented as of this encounter Visit Diagnoses Diagnosis Non-ischemic cardiomyopathy (HCC) - Cristal katz Other primary cardiomyopathies Chronic heart failure with preserved ej ection fraction (HCC) Nonrheumatic tricuspid valve regurgitat ion Tricuspid valve disorders, specified as nonrheumatic * Addendum Note - Sathya Gutiérrez BSN - 01/24/2021 5:31 PM CDT Addended by: SATHYA GUTIÉRREZ on: 01/24/2021 05:31 PM Modules accepted: Orders * Addendum Note - Sathya Gutiérrez BSN - 01/24/2021 2:36 PM CDT Addended by: SATHYA GUTIÉRREZ on: 01/24/2021 02:36 PM Modules accepted: Orders documented in this encounter Discontinued Medications Start Date End Date Medication Sig Discontinue Reason 01/17/2021 01/24/2021 bumetanide (BUMEX) 1 mg Take four tablet tablets by mouth twice daily for 30 days. documented as of this encounter Additional Health Concerns Noted Time Assessment 01/23/2021 2:20 PM CDT A fall risk assessment has been complet ed for the patient 12/07/2020 3:18 PM CDT PHQ-2 Depression Total Score: 2 documented as of this encounter Care Teams Start Date End Date Caterpillar Driver Relationship Specialty 05/15/20 Garfield Gray MD PCP - [address] [address] 06/13/20 Riley Hopson MD Consulting Cardiovascul [address] [place] [address] Physician ar Disease [address] [place], [place] [address] 12/20/20 Gino Pandya, PICKING BELT OPERATOR-PATTERN GATER Nurse Nurse [address] [address] 01/19/21 Teri Brandon Continuum of Care Case Management documented as of this encounter
--- OUTSIDE RECORDS SUMMARY | 2021-03-11 12:18 | XMS REPORT | Encounter Summary ---
Author Author [facility] Organization [facility] Address Unknown Phone Unavailable Care Team Providers Care Account Director Name Role Phone Self, Garfield OLVERA PCP Riley Hopson MD [phone] Gino Panyda LENS MOLD SETTER-MASH FILTER OPERATOR [phone] Teri Brandon [phone] Unavailable Encounter Details Care Team Description Date Type Department 01/23/2021 Travel Social History Date Tobacco Use Types Packs/Day Years Used Never Smoker Smokeless Tobacco: Never Used Comments Alcohol Use Standard Drinks/Week Not Currently 0 (1 standard drink = 0.6 o z pure alcohol) Sex Assigned at Date Recorded Female 06/01/2020 1:44 PM COMMUNITY HEALTH PROGRAM COORDINATOR Date Recorded COVID-19 Exposure Response 01/23/2021 1:48 [...] Date Type Specialty Carlos Longo MD 4000 [facility] [place] [address] [place] [address], [address] [place] [phone] 03/22/2021 Hospital Radiology Encounter Jacob Almaraz MD [address], [address] [place] [address] Nonrheumatic tricuspid valve regurgitati on 03/27/2021 Hospital Cardiology Encounter Jacob Almaraz MD [address], [address] [place] [address] CATHETERIZATION RIGHT HEART 03/27/2021 Surgery Cardiology Date/Time Name Priority Associated Diagnose s 03/27/2021 9:05 AM COMMUNITY HEALTH PROGRAM COORDINATOR CATHETERIZATION RIGHT HEART Nonrheumatic tricuspid valve regurgitation documented as of this encounter Goals Goal Patient Associated Recent Progress Patient-Stat Aut hor Goal Type Problems ed? Improve [facility] On track (10/23/2020 Yes Sheldon, 1:06 PM [...] encounter Care Teams Start Date End Date Account Director Relationship Specialty 05/15/20 Garfield Gray MD PCP - General [address] [place] [address] 06/13/20 Riley Hopson MD Consulting Cardiovascul [address] Physician ar Disease [address] [place] [address] 12/20/20 Gino Pandya, LENS MOLD SETTER-MASH FILTER OPERATOR Nurse Nurse [address] [place] [address] 01/19/21 Teri Brandon Continuum of Care Case Management documented as of this encounter
--- OUTSIDE RECORDS SUMMARY | 2021-03-11 12:18 | XMS REPORT | Encounter Summary ---
Author Author [facility] Organization [facility] Address Unknown Phone Unavailable Care Team Providers Care Batter Mixer Helper Name Role Phone Self, Garfield OLVERA PCP Riley Hopson MD [phone] Gino Pandya RENEWABLE ENERGY TECHNICIAN-TEST CENTER MANAGER [phone] Teri Brandon [phone] Unavailable Reason for Visit * Reason Comments Labs Only INR Encounter Details Care Team Description Date Type Department [place], [place] Labs Only (INR) 01/29/2021 Documentation Cardiology: [facility] 4000 [facility] [address], [address] [place] [address] Social History Date Tobacco Use Types Packs/Day Years Used Never Smoker Smokeless Tobacco: Never Used Comments Alcohol Use Standard Drinks/Week Not Currently 0 (1 standard drink = 0.6 o z pure alcohol) Sex Assigned at Date Recorded Female 06/01/2020 1:44 PM CLINICAL ASSISTANT Date Recorded COVID-19 Exposure Response 01/23/2021 1:48 [...] Date Type Specialty Carlos Longo MD 4000 [facility] [address] [place] [address] [place] [address], [address] [place] [phone] 03/22/2021 Hospital Radiology Encounter Jacob Almaraz MD [address], [address] [place] [phone] Nonrheumatic tricuspid valve regurgitati on 03/27/2021 Hospital Cardiology Encounter Jacob Almaraz MD [address], [address] [place] [phone] CATHETERIZATION RIGHT HEART 03/27/2021 Surgery Cardiology Date/Time Name Priority Associated Diagnose s 03/27/2021 9:05 AM CLINICAL ASSISTANT CATHETERIZATION RIGHT HEART Nonrheumatic tricuspid valve regurgitation documented as of this encounter Goals Goal Patient Associated Recent Progress Patient-Stat Aut hor Goal Type Problems ed? [facility] On track (10/23/2020 Yes Sheldon, 1:06 PM CDT) CHRYSTAL Singh [facility] On track (12/25/2020 Yes Sheldon, 2:41 PM CDT) CHRYSTAL Singh Note: "To get better and stronger." documented as of this encounter Procedures Comments Procedure Name Priority Date/Time Associated Diag nosis PROTIME INR (PT) Routine 01/29/2021 Chronic heart failure with preserved ejection fraction (HCC) documented in this encounter Results * PROTIME INR (PT) (01/29/2021) INR 1.3 [facility] Specimen Blood specimen (specimen) - Blood Narrative Performing Organization Address City/State/ZIP Code P shane Number [facility] [address] [place] [address] documented in this encounter Visit Diagnoses Diagnosis [...] encounter Care Teams Start Date End Date Batter Mixer Helper Relationship Specialty 05/15/20 Garfield Gray MD PCP - [address] [address] 06/13/20 Riley Hopson MD Consulting Cardiovascul [address] [place] [address] Physician ar Disease [address] [place], [place] [address] 12/20/20 Gino Pandya, RENEWABLE ENERGY TECHNICIAN-TEST CENTER MANAGER Nurse Nurse 4000 [facility] Practitioner Practitioner [facility] [place] [address] 01/19/21 Teri Brandon Continuum of Care Case Management documented as of this encounter
--- OUTSIDE RECORDS SUMMARY | 2021-03-11 12:18 | XMS REPORT | Encounter Summary ---
Author Author [facility] Organization [facility] Address Unknown Phone Unavailable Care Team Providers Care Skin Lap Bonder Name Role Phone Self, Garfield OLVERA PCP Riley Hopson MD [phone] Gino Pandya APRN-DRY CHAIN OPERATOR [phone] Teri Brandon [phone] Unavailable Reason for Visit * Reason Comments Anticoagulation INR 1.3 Encounter Details Care Team Description Date Type Department Josi Purvis BSN Anticoagulation (INR 1.3) 01/29/2021 Anticoagulation Cardiology: [facility] [address] [place] [address] 1, [address] [place] [address] Social History Date Tobacco Use Types Packs/Day Years Used Never Smoker Smokeless Tobacco: Never Used Comments Alcohol Use Standard Drinks/Week Not Currently 0 (1 standard drink = 0.6 o z pure alcohol) Sex Assigned at Date Recorded Female 06/01/2020 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 Date Recorded COVID-19 Exposure Response 01/23/2021 1:48 [...] Date Type Specialty Carlos Longo MD 4000 [facility] [address] [place] [address] [place] [address], [address] [place] [phone] 03/22/2021 Hospital Radiology Encounter Jacob Almaraz [place] [address], [address] [place] [phone] Nonrheumatic tricuspid valve regurgitati on 03/27/2021 Hospital Cardiology Encounter Jacob Almaraz MD [address], [address] [place] [phone] CATHETERIZATION RIGHT HEART 03/27/2021 Surgery Cardiology Date/Time Name Priority Associated Diagnose s 03/27/2021 9:05 AM MANAGER INTELLIGENCE CATHETERIZATION RIGHT HEART Nonrheumatic tricuspid valve regurgitation documented as of this encounter Goals Goal Patient Associated Recent Progress Patient-Stat Aut hor Goal Type Problems ed? Improve [facility] On track (10/23/2020 Yes Sheldon, 1:06 PM CDT) CHRYSTAL Singh [facility] On track (12/25/2020 Yes Sheldon, 2:41 PM [...] encounter Care Teams Start Date End Date Skin Lap Bonder Relationship Specialty 05/15/20 Garfield Gray MD PCP - [address] [address] 06/13/20 Riley Hopson MD Consulting Cardiovascul [address] Physician ar Disease [address] [place], [place] [address] 12/20/20 Gino Pandya, INSPECTOR ROUGH CASTINGS-DRY CHAIN OPERATOR Nurse Nurse 4000 [facility] Practitioner Practitioner [address] [address] 01/19/21 Teri Brandon Continuum of Care Case Management documented as of this encounter
--- OUTSIDE RECORDS SUMMARY | 2021-03-11 12:18 | XMS REPORT | Encounter Summary ---
Author Author [facility] Organization [facility] Address Unknown Phone Unavailable Care Team Providers Care Unclaimed Property Manager Name Role Phone Self, Garfield OLVERA PCP Riley Hopson MD [phone] Gino Pandya APRN-REEL OPERATOR [phone] Teri Brandon [phone] Unavailable Reason for Visit * Reason Onset Date Comments Follow-up Phone Call 01/22/2021 Symptom follow-up Encounter Details Care Team Description Date Type Department Sherin Mata BSN Follow-up Phone Call (Symptom follow-up) 01/22/2021 Telephone Cardiology: [facility] [address] [place] [address] 1, [address] [place] [address] Social History Date Tobacco Use Types Packs/Day Years Used Never Smoker Smokeless Tobacco: Never Used Comments Alcohol Use Standard Drinks/Week Not Currently 0 (1 standard drink = 0.6 o z pure alcohol) Sex Assigned at Date Recorded Female 06/01/2020 1:44 PM BIT SHARPENER OPERATOR Date Recorded COVID-19 Exposure Response 01/11/2021 2:59 [...] encounter Miscellaneous Notes * Telephone Encounter - Sherin Mata BSN - 01/22/2021 9:55 AM CDT Called pt to talk about current symptoms. She reports increased abd swelling an d discomfort in her abd. She stated "I need them to drain this again". BP-112/ 76, HR-108. She reports color is good and denies SOA. Weight at 132.8 today(in creased from 124 upon discharge). Reported this and latest lab work to [facility] geovanna leija. * Telephone Encounter - Sherin Mata BSN - 01/22/2021 9:54 AM CDT ----- Message from JOVANNY Schneider sent at 01/22/2021 7:51 AM CDT ----- Regarding: FW: Prescription Question Contact: ----- Message ----- From: Zaria Paulson Sent: 01/21/2021 9:27 PM CDT To: [facility] Nurse Triage [facility] Subject: Prescription Question Please call me about my swollen tummy problem documented in this encounter Plan of Treatment Care Team Description Date Type Specialty Carlos Longo MD [facility] [place] [address] [place] [address], [address] [place] [address] 03/22/2021 Hospital Radiology Encounter Jacob Almaraz [place] [address], [address] [place] [address] Nonrheumatic tricuspid valve regurgitati on 03/27/2021 Hospital Cardiology Encounter Jacob Almaraz MD [address], [address] [place] [address] CATHETERIZATION RIGHT HEART 03/27/2021 Surgery Cardiology Date/Time Name Priority Associated Diagnose s 03/27/2021 9:05 AM BIT SHARPENER OPERATOR CATHETERIZATION RIGHT HEART Nonrheumatic tricuspid valve regurgitation documented as of this encounter Goals Goal Patient Associated Recent Progress Patient-Stat Aut hor Goal Type Problems ed? Improve [facility] On track (10/23/2020 Yes Sheldon, 1:06 PM CDT) CHRYSTAL Singh Improve [facility] On track (12/25/2020 Yes Sheldon, 2:41 PM [...] encounter Care Teams Start Date End Date Unclaimed Property Manager Relationship Specialty 05/15/20 Garfield Gray MD PCP - [address] [place] [address] 06/13/20 Riley Hopson MD Consulting Cardiovascul [address] Physician ar Disease [address] [place] [phone] 12/20/20 Gino Pandya, STREET VENDOR-REEL OPERATOR Nurse Nurse [address] [place] [phone] 01/19/21 Teri Brandon Continuum of Care Case Management documented as of this encounter
--- OUTSIDE RECORDS SUMMARY | 2021-03-11 12:18 | XMS REPORT | Encounter Summary ---
Author Author [facility] Organization [facility] Address Unknown Phone Unavailable Care Team Providers Care Beam Builder Helper Name Role Phone Self, Garfield OLVERA PCP Riley Hopson MD [phone] Gino Pandya APRN-PLASTIC CUTTER [phone] Reason for Visit * Reason Onset Date Comments Medication Dose Change 01/17/2021 Bumex from 3mg BID to 4mg BID Encounter Details Care Team Description Date Type Department Sherin Mata BSN Medication Dose Change (Bumex from 3mg B ID to 4mg BID) 01/17/2021 Telephone Cardiology: [facility] 4000 [facility] 1, [address] [place] [address] Social History Date Tobacco Use Types Packs/Day Years Used Never Smoker Smokeless Tobacco: Never Used Comments Alcohol Use Standard Drinks/Week Not Currently 0 (1 standard drink = 0.6 o z pure alcohol) Sex Assigned at Date Recorded Female 06/01/2020 1:44 PM PROJECTION PRINTER Date Recorded COVID-19 Exposure Response 01/11/2021 2:59 [...] Date End Date Prescription Sig Dispensed Refills 01/17/2021 01/24/2021 bumetanide (BUMEX) 1 mg Take four 240 tablet 0 tablet tablets by mouth twice daily for 30 days. documented in this encounter Miscellaneous Notes * Telephone Encounter - Sherin Mata BSN - 01/17/2021 5:46 PM CDT Called an spoke to pt regarding Orders from [facility] to increase Bumex to 4mg BID. She verbalized understanding as well as confirmed that she had enough pil ls already. She understands HH out to draw labs tomorrow. documented in this encounter Plan of Treatment Care Team Description Date Type Specialty Carlos Longo MD [address] [address] [place] [address], [address] [place] [address] 03/22/2021 Hospital Radiology Encounter Jacob Al[place] [address], [address] [place] [address] Nonrheumatic tricuspid valve regurgitati on 03/27/2021 Hospital Cardiology Encounter Jacob Almaraz MD [address], [address] [place] [address] CATHETERIZATION RIGHT HEART 03/27/2021 Surgery Cardiology Date/Time Name Priority Associated Diagnose s 03/27/2021 9:05 AM PROJECTION PRINTER CATHETERIZATION RIGHT HEART Nonrheumatic tricuspid valve regurgitation documented as of this encounter Goals Goal Patient Associated Recent Progress Patient-Stat Aut hor Goal Type Problems ed? Improve [facility] On track (10/23/2020 Yes Sheldon, 1:06 PM CDT) CHRYSTAL Singh [facility] On track (12/25/2020 Yes Sheldon, 2:41 PM CDT) CHRYSTAL Singh Note: "To get better and stronger." documented as of this encounter Visit Diagnoses Not on filedocumented in this encounter Discontinued Medications Start Date End Date Medication Sig Discontinue Reason 12/30/2020 01/17/2021 bumetanide (BUMEX) 1 mg Take three Ineffective tablet tablets by Therapy mouth twice daily for 30 days. documented as of this encounter Additional Health Concerns Noted Time Assessment 01/11/2021 3:09 PM CDT A fall risk assessment has been complet ed for the patient 12/07/2020 3:18 PM CDT PHQ-2 Depression Total Score: 2 documented as of this encounter Care Teams Start Date End Date Beam Builder Helper Relationship Specialty 05/15/20 Garfield Gray MD PCP - [address] [address] 06/13/20 Riley Hopson MD Consulting Cardiovascul [address] [place] [address] Physician [address] Disease [address] [place], [place] [address] 12/20/20 Gino Pandya, WATCH ASSEMBLY INSPECTOR-PLASTIC CUTTER Nurse Nurse [address] [place] [phone] documented as of this encounter
--- OUTSIDE RECORDS SUMMARY | 2021-03-11 12:18 | XMS REPORT | Encounter Summary ---
Author Author [facility] Organization [facility] Address Unknown Phone Unavailable Care Team Providers Care Surgical First Assistant Name Role Phone Self, Garfield OLVERA PCP Riley Hopson MD [phone] Gino Pandya FUEL CELL DESIGNER-WOOD CREW SUPERVISOR [phone] Caitlin Desai [phone] Unavailable Reason for Visit * Reason Comments Anticoagulation Encounter Details Care Team Description Date Type Department Josi Purvis BSN Anticoagulation 01/15/2021 Anticoagulation Cardiology: [facility] 4000 [facility] 1, [address] [place] [address] Social History Date Tobacco Use Types Packs/Day Years Used Never Smoker Smokeless Tobacco: Never Used Comments Alcohol Use Standard Drinks/Week Not Currently 0 (1 standard drink = 0.6 o z pure alcohol) Sex Assigned at Date Recorded Female 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 R epeat INR 01/18 documented in this encounter Plan of Treatment Care Team Description Date Type Specialty Carlos Longo MD 4000 [facility]600 [place] [address] [place] [address], [address] [place] [phone] 03/22/2021 Hospital Radiology Encounter Jacob Almaraz MD [address], [address] [place] [phone] Nonrheumatic tricuspid valve regurgitati on 03/27/2021 Hospital Cardiology Encounter Jacob Almaraz MD [address], [address] [place] [phone] CATHETERIZATION RIGHT HEART 03/27/2021 Surgery Cardiology Date/Time Name Priority Associated Diagnose s 03/27/2021 9:05 AM JOURNEYMAN PLUMBER CATHETERIZATION RIGHT HEART Nonrheumatic tricuspid valve regurgitation documented as of this encounter Goals Goal Patient Associated Recent Progress Patient-Stat Aut hor Goal Type Problems ed? [facility] On track (10/23/2020 Yes Sheldon, 1:06 PM CDT) CHRYSTAL Singh [facility] On track (12/25/2020 Yes Sheldon, 2:41 [...] encounter Care Teams Start Date End Date Surgical First Assistant Relationship Specialty 05/15/20 Garfield Gray MD PCP - [address] [address] 06/13/20 Riley Hopson MD Consulting Cardiovascul [address] [place] [address] Physician ar Disease [address] [place], [place] [address] 12/20/20 Gino Pandya, FUEL CELL DESIGNER-WOOD CREW SUPERVISOR Nurse Nurse [address] [place] [address] 12/25/20 01/16/21 Caitlin Desai Continuum of Care Case Management documented as of this encounter
--- OUTSIDE RECORDS SUMMARY | 2021-03-11 12:18 | XMS REPORT | Encounter Summary ---
Author Author [facility] Organization [facility] Address Unknown Phone Unavailable Care Team Providers Care Consulting Business Developer Name Role Phone Self, Garfield OLVERA PCP Riley Hopson MD [phone] Gino Pandya APRN-CHEESE SPRAYER [phone] Caitlin Desai [phone] Unavailable Encounter Details Care Team Description Date Type Department 01/11/2021 Travel Social History Date Tobacco Use Types Packs/Day Years Used Never Smoker Smokeless Tobacco: Never Used Comments Alcohol Use Standard Drinks/Week Not Currently 0 (1 standard drink = 0.6 o z pure alcohol) Sex Assigned at Date Recorded Female 06/01/2020 1:44 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 Date Recorded COVID-19 Exposure Response 01/11/2021 2:59 [...] Date Type Specialty Carlos Longo MD 4000 [facility]600 [place] [address] [place] [address], [address] [place] [phone] 03/22/2021 Hospital Radiology Encounter Jacob Almaraz [place] [address], [address] [place] [address] Nonrheumatic tricuspid valve regurgitati on 03/27/2021 Hospital Cardiology Encounter Jacob Almaraz MD [address], [address] [place] [address] CATHETERIZATION RIGHT HEART 03/27/2021 Surgery Cardiology Date/Time Name Priority Associated Diagnose s 03/27/2021 9:05 AM SANITATION WORKER CLEANING EQUIPMENT CATHETERIZATION RIGHT HEART Nonrheumatic tricuspid valve regurgitation documented as of this encounter Goals Goal Patient Associated Recent Progress Patient-Stat Aut hor Goal Type Problems ed? Improve [facility] On track (10/23/2020 Yes [...] encounter Care Teams Start Date End Date Consulting Business Developer Relationship Specialty 05/15/20 Garfield Gray MD PCP - General [address] [place] [address] 06/13/20 Riley Hopson MD Consulting Cardiovascul [address] Physician ar Disease [address] [place] [address] 12/20/20 Gino Pandya, NET UI DEVELOPER-CHEESE SPRAYER Nurse Nurse [address] [place] [address] 12/25/20 01/16/21 Caitlin Desai Continuum of Care Case Management documented as of this encounter
--- OUTSIDE RECORDS SUMMARY | 2021-03-11 12:18 | XMS REPORT | Encounter Summary ---
Author Author [facility] Organization [facility] Address Unknown Phone Unavailable Care Team Providers Care Guard Captain Name Role Phone Self, Garfield OLVERA PCP Riley Hopson MD [phone] Gino Pandya OVERNIGHT CASHIER-MECHANICAL ENGINEERING TECHNICIAN [phone] Caitlin Desai [phone] Unavailable Reason for Visit * Reason Comments Anticoagulation INR 1.2 Encounter Details Care Team Description Date Type Department Susan Palomino RN Anticoagulation (INR 1.2) 01/12/2021 Anticoagulation Cardiology: [facility] 4000 [facility] 1, [address] [place] [address] Social History Date Tobacco Use Types Packs/Day Years Used Never Smoker Smokeless Tobacco: Never Used Comments Alcohol Use Standard Drinks/Week Not Currently 0 (1 standard drink = 0.6 o z pure alcohol) Sex Assigned at Date Recorded Female 06/01/2020 1:44 PM RN HOSPICE Date Recorded COVID-19 Exposure Response 01/11/2021 2:59 [...] Progress Notes * Susan Palomino RN - 01/12/2021 5:22 PM CDT Called and spoke to patient. Reviewed plan above. She is agreeable to the plan a nd at this time has no further questions or concerns. documented in this encounter Plan of Treatment Care Team Description Date Type Specialty Carlos Longo MD 4000 [facility]600 [place] [address] [place] [address], [address] [place] [address] 03/22/2021 Hospital Radiology [place]counter [place] [address], [address] [place] [address] Nonrheumatic tricuspid valve regurgitati on 03/27/2021 [facility] Cardiology [place] [address], [address] [place] [address] CATHETERIZATION RIGHT HEART 03/27/2021 Surgery Cardiology Date/Time Name Priority Associated Diagnose s 03/27/2021 9:05 AM RN HOSPICE CATHETERIZATION RIGHT HEART Nonrheumatic tricuspid valve regurgitation documented as of this encounter Goals Goal Patient Associated Recent Progress Patient-Stat Aut hor Goal Type Problems ed? [facility] On track (10/23/2020 Yes Sheldon, 1:06 PM CDT) CHRYSTAL Singh [facility] On track (12/25/2020 Yes Sheldon, 2:41 PM CDT) CHRYSTAL Singh Note: "To get better and stronger." documented as of this encounter Procedures Comments Procedure Name Priority Date/Time Associated Diag nosis HOME INR Routine 01/12/2021 documented in this encounter Results * HOME INR (01/12/2021) INR Home 1.2 OTHER OUTSIDE LAB Specimen Narrative Performing Organization Address City/State/ZIP Code P [...] encounter Care Teams Start Date End Date Guard Captain Relationship Specialty 05/15/20 Garfield Gray MD PCP - [address] [address] 06/13/20 Riley Hopson MD Consulting Cardiovascul [address] [place] [address] Physician ar Disease [address] [place], [place] [address] 12/20/20 Gino Pandya, OVERNIGHT CASHIER-MECHANICAL ENGINEERING TECHNICIAN Nurse Nurse [address] [address] 12/25/20 01/16/21 Caitlin Desai Continuum of Care Case Management documented as of this encounter
--- OUTSIDE RECORDS SUMMARY | 2021-03-11 12:18 | XMS REPORT | Encounter Summary ---
Author Author [facility] Organization [facility] Address Unknown Phone Unavailable Care Team Providers Care Duck Operator Name Role Phone Self, Garfield OLVERA PCP Riley Hopson MD [phone] Gino Pandya TIPPLE OILER-SHIPPING CLERK/ADMIN [phone] Caitlin Desai [phone] Unavailable Reason for Visit * Reason Onset Date Comments Abdomen Swelling 01/10/2021 Encounter Details Care Team Description Date Type Department Susan Palomino RN Abdomen Swelling 01/10/2021 Telephone Cardiology: [facility] [address] [facility] [address], [address] [place] [address] Social History Date Tobacco Use Types Packs/Day Years Used Never Smoker Smokeless Tobacco: Never Used Comments Alcohol Use Standard Drinks/Week Not Currently 0 (1 standard drink = 0.6 o z pure alcohol) Sex Assigned at Date Recorded Female 06/01/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 documented as of this encounter Functional Status Date of Assessment Functional Status Response 01/02/2021 Does the patient have a hearing impairment: No 01/02/2021 Does the patient have a visual impairment: Yes 01/02/2021 Does the patient have impaired ambulation: Yes 01/02/2021 Does the patient have an activity of daily living No (ADL) impairment: 01/02/2021 Does the patient have an instrumental activity of No daily living (IADL) impairment: Date of Assessment Cognitive Status Response 01/02/2021 Does the patient have a cognitive impairment: No documented as of this encounter Miscellaneous Notes * Telephone Encounter - Susan Palomino RN - 01/10/2021 11:31 AM CDT Patient sent message asking if Paracentesis was needed today prior to OV tomorro w. Called and spoke to patient. Offered her OV with [facility] today, 01/10, at this ti me patient declines appointment due to transportation issues. She states she wou ld like to keep OV with Berna Madison APRN tomorrow to discuss abdominal swell ing. Per chart review patient had paracentesis on 12/02 with 6.3 L fluid removal , additionally, "Recommendations: Patient wants to discharge today because it is her birthday. Ideally we would b e able to monitor her her for stability after discontinuing her Bumex drip and i ncreasing her midodrine however she wants to go home. MARITIME ENGINEER was on Bumex 3 mg twice daily, would continue this dose. MARITIME ENGINEER on spironolactone 100 mg twice daily, would reduce that to 50 mg twice daily . Would continue her K-Dur 20 M EQ p.o. twice daily. Continue midodrine 15 mg po TID. discontinued her MARITIME ENGINEER metoprolol tartrate due to hypotension. Her MARITIME ENGINEER warfarin 2 mg daily has been resumed, INR today is 1.5. Difficult situa tion given her hemoglobin 7.8. INR goal 2-2.5 We have recommended Palliative Care Consult, however, patient continues to have aggressive goals of care. Please request a post hospital follow-up appointment in heart failure clinic. S he will need a repeat BMP and INR at that time. Atrial Fibrillation (Paroxysmal)/ Atrial Tachycardia/ s/p AorticValveReplace ment: -She is onmetoprolol tartrateand denies palpitations. -She is onwarfarinoral anticoagulation. Goal INR 2.03.0. (Goal had be en lowered to 1.62.0 with recent hospitalization but Dr. Longo have readjuste d to 2.03.0). Her anticoagulation is managed by Dr. Longo. -Resumed on metoprolol tartrate 12.5 mg twice daily during recent hospitalizat ion, digoxin discontinued > INR monitored by INR RN team.Home INR reported as 1.6 on 01/01. 01/03: INR 1.9: Warfarin has been on hold due to recent anemia, she is having EG D today, once stabilized from that will need to resume warfarin with target get INR 2-2.[address] Lamb. 01/03: Underwent EGD that showed trace varices, portal hypertensive gastropathy" Per patient request will await OV tomorrow to address concerns. documented in this encounter Plan of Treatment Care Team Description Date Type Specialty Carlos Longo MD [address] [facility] [place], [place] [id number] [place] [address], [address] [place] [phone] 03/22/2021 Hospital Radiology [place] [address], [address] [place] [phone] Nonrheumatic tricuspid valve regurgitati on 03/27/2021 Hospital Cardiology Encounter Jacob Al[place]az [address], [address] [place] [phone] CATHETERIZATION RIGHT HEART 03/27/2021 Surgery Cardiology Date/Time Name Priority Associated Diagnose s 03/27/2021 9:05 AM PATTERN ATTENDANT CATHETERIZATION RIGHT HEART Nonrheumatic tricuspid valve regurgitation documented as of this encounter Goals Goal Patient Associated Recent Progress Patient-Stat Aut hor Goal Type Problems ed? [facility] On track (10/23/2020 Yes Sheldon, 1:06 PM CDT) CHRYSTAL Singh [facility] On track (12/25/2020 Yes Sheldon, 2:41 PM CDT) CHRYSTAL Singh Note: "To get better and stronger." documented as of this encounter Visit Diagnoses Not on filedocumented in this encounter Additional Health Concerns Noted Time Assessment 2021 9:00 AM CDT A fall risk assessment has been complet ed for the patient 12/07/2020 3:18 PM CDT PHQ-2 Depression Total Score: 2 documented as of this encounter Care Teams Start Date End Date Duck Operator Relationship Specialty 05/15/20 Garfield Gray MD PCP - [address] [phone] 06/13/20 Riley Hopson MD Consulting Cardiovascul [address] Physician [address] Disease [address] [place], [place] [address] 12/20/20 Gino Pandya, TIPPLE OILER-SHIPPING CLERK/ADMIN Nurse Nurse [address] [place] [phone] 12/25/20 01/16/21 Caitlin Desai Continuum of Care Case Management documented as of this encounter
--- OUTSIDE RECORDS SUMMARY | 2021-03-11 12:18 | XMS REPORT | Encounter Summary ---
Author Author [facility] Organization [facility] Address Unknown Phone Unavailable Care Team Providers Care Returns Processor Name Role Phone Self, Garfield OLVERA PCP Riley Hopson MD [phone] Gino Pandya OPERATIONS INTELLIGENCE-MEASUREMENT SUPERINTENDENT [phone] Teri Brandon [phone] Unavailable Reason for Referral * Radiology Services (Routine) - Authorized Diagnoses / Procedures Referred By Contact Referred To Conta ct Specialty Diagnoses Chronic heart failure with preserved ejection fraction (HCC) RVF (right ventricular failure) (HCC) Other cirrhosis of liver (HCC) Procedures IR PARACENTESIS THERAPEUTIC Carlos Longo MD [address] [address] [address] [place] [address] Radiology Referral ID Status Reason Start Date Expiration Visits Vi sits Date Requested Authorized [id number] Authorized 01/22/2021 01/22/2022 20 20 TER MACHINE TENDER Reason for Visit * Radiology Services (Routine) - Authorized Diagnoses / Procedures Referred By Contact Referred To Conta ct Specialty Diagnoses Chronic heart failure with preserved ejection fraction (HCC) RVF (right ventricular failure) (HCC) Other cirrhosis of liver (HCC) Procedures IR PARACENTESIS THERAPEUTIC Carlos Longo MD [address] [place] [address] [address] [place] [address] Radiology Referral ID Status Reason Start Date Expiration Visits Vi sits Date Requested Authorized [id number] Authorized 01/22/2021 01/22/2022 20 20 Encounter Details Care Team Description Date Type Department Carlos Longo MD 4000 [facility] [address] [place], [place] [phone] Caitlin Cr RN Torline, Arik, RT(R)(),LRT Giancarlo Meneses MD [address] [facility] [address] Fl[address] [place], [place] [phone] Chronic heart failure with preserved eje ction fraction (HCC) 02/02/2021 Hospital Interventional Radi ology: Encounter [facility], [facility] [address] [facility] [address], [address] [place] [address] Social History Date Tobacco Use Types Packs/Day Years Used Never Smoker Smokeless Tobacco: Never Used Comments Alcohol Use Standard Drinks/Week Not Currently 0 (1 standard drink = 0.6 o z pure alcohol) Sex Assigned at Date Recorded Female 06/01/2020 1:44 PM PLASTER MACHINE TENDER Date Recorded COVID-19 Exposure Response 01/23/2021 1:48 PM CDT In the last month, have you been in contact with No / Unsure someone who was confirmed or suspected to have Coronavirus / COVID-19? documented as of this encounter Last Filed Vital Signs Reading Time Taken Comments Vital Sign 106/60 02/02/2021 4:45 PM PLASTER MACHINE TENDER Blood Pressure 129 02/02/2021 4:50 PM PLASTER MACHINE TENDER Pulse 36.6 C (97.9 F) 02/02/2021 4:18 PM PLASTER MACHINE TENDER Temperature - - Respiratory Rate 96% 02/02/2021 4:50 PM PLASTER MACHINE TENDER Oxygen Saturation - - Inhaled Oxygen Concentration [...] Date End Date Medication Sig Dispensed Refills calcium carbonate Take 1,250 mg 0 (OS-KRUPA) 1250 mg tablet by mouth daily. 2021 ferrous gluconate [...] tablet 0 tablet tablets by mouth daily. 01/24/2021 02/06/2021 bumetanide (BUMEX) 1 mg Take five 240 tablet 0 tablet tablets by mouth twice daily for 30 days. 05/09/2020 02/19/2021 ergocalciferol (VITAMIN Take 1 0 D-2) 1,250 mcg (50,000 capsule by unit) capsule mouth every 7 days. 12/15/2020 02/06/2021 HYDROcodone/acetaminophen Take 1 tablet 0 (NORCO) 5/325 mg tablet by mouth every 4-6 hours as needed 02/06/2021 mupirocin (BACTROBAN) 2 % Apply 1 g 0 topical ointment topically to affected area three times daily. 11/15/2020 02/12/2021 oxybutynin chloride Take one 180 tablet 0 (DITROPAN) 5 mg tablet tablet by mouth three times daily. 01/11/2021 02/21/2021 spironolactone Take three 274 tablet 3 (ALDACTONE) 25 mg tablet tablets by mouth daily. Take with food. documented as of this encounter Discharge Disposition Code Departure Means Destination Disposition Wheelchair Home or Self Care documented in this encounter Progress Notes * Esther Fonseca RN - 02/02/2021 5:07 PM PLASTER MACHINE TENDER Pt recovery complete. PIV removed. Patient states this has been her baseline HR and that she follows with cardiology. Denies pain/dizziness/SOA. Ambulatory status: Ambulatory. Vitals stable. Dressing is clean, dry, and intact. Pain level returned to baseline. Discharge instructions reviewed with: Patient AVS signed and provided to patient. [facility] wheelchair transport. TER MACHINE TENDER documented in this encounter H&P Notes * Latesha Beltrán APRN-TWYLA - 02/02/2021 2:49 PM PLASTER MACHINE TENDER IR Pre-Procedure History and Physical/Sedation Plan Procedure Date: 02/02/2021 Planned Procedure(s): Ultrasound-guided paracentesis Indication: Fluid testing; Therapeutic drainage Chief Complaint: Ascites History of Present Illness: Zaria Paulson is a 61 y.o. female with a history as listed below who presents today for procedure. She reports abdominal distensi on, she denies other complaints and is agreeable to procedure. Patient Active Problem List Diagnosis Date Noted Fall 2021 Acute kidney injury superimposed on CKD (HCC) 01/02/2021 Severe malnutrition (HCC) 12/27/2020 Severe sepsis (HCC) 12/22/2020 Acute on chronic diastolic (congestive) heart failure (HCC) 12/10/2020 RVF (right ventricular failure) ([facility]) 11/30/2020 Hyponatremia 11/30/2020 Acute on chronic heart failure (HCC) 11/29/2020 Hematoma of left flank 11/15/2020 Hematoma of right flank 11/15/2020 Hematuria 11/15/2020 Nontraumatic rectus hematoma 11/04/2020 Hypoalbuminemia 10/23/2020 LEONORA (acute kidney injury) ([facility]) 10/21/2020 GI bleeding 10/20/2020 Cirrhosis ([facility]) 09/07/2020 Non-ischemic cardiomyopathy ([facility]) 09/07/2020 Paroxysmal atrial fibrillation ([facility]) 09/07/2020 Stage 3b chronic kidney disease ([facility]) 09/07/2020 Atrial tachycardia ([facility]) 09/07/2020 Iron deficiency anemia 08/03/2020 High output congestive heart failure (HCC) 08/01/2020 Hypotension, unspecified 07/10/2020 Chronic heart failure with preserved ejection fraction (HCC) 06/07/2020 Anemia 06/07/2020 Severe tricuspid regurgitation 06/07/2020 Hx of mechanical aortic valve replacement 06/07/2020 Chronic anticoagulation 06/07/2020 History of endocarditis 06/07/2020 Medical History: Diagnosis Date Cancer ([facility]) Non- hodgkins lymphoma, chemo Disorder of thyroid gland Hypertension Iron deficiency anemia 08/03/2020 Iron deficiency anemia 08/03/2020 Surgical History: Procedure Laterality Date AORTIC VALVE REPLACEMENT 05/2009 mechanical ESOPHAGOGASTRODUODENOSCOPY WITH BIOPSY - FLEXIBLE N/A 06/06/2020 Performed by Bao Hernández MD at [facility] ENDO COLONOSCOPY DIAGNOSTIC WITH SPECIMEN COLLECTION BY BRUSHING/ WASHING - FLEXI BLE N/A 06/06/2020 Performed by Bao Hernández MD at [facility] ENDO ANGIOGRAPHY CORONARY ARTERY WITH RIGHT AND LEFT HEART CATHETERIZATION N/A Performed by Higinio Clarke MD at [facility] LEGAL SUPPORT MANAGER POSSIBLE PERCUTANEOUS CORONARY STENT PLACEMENT WITH ANGIOPLASTY N/A 3/18/202 1 Performed by Higinio Clarke MD at [facility] LEGAL SUPPORT MANAGER ESOPHAGOGASTRODUODENOSCOPY WITH SPECIMEN COLLECTION BY BRUSHING/ WASHING N/A 10/21/2020 Performed by Cosmo Gomez MD at [facility] ENDO SIGMOIDOSCOPY WITH CONTROL OF BLEEDING - FLEXIBLE N/A 10/21/2020 Performed by Cosmo Gomez MD at [facility] ENDO SIGMOIDOSCOPY WITH DIRECTED SUBMUCOSAL INJECTION - FLEXIBLE 10/21/2020 Performed by Cosmo Gomez MD at [facility] ENDO ESOPHAGOGASTRODUODENOSCOPY WITH CONTROL OF BLEEDING - FLEXIBLE N/A 1 Performed by Bao Hernández MD at [facility] ENDO Social History Tobacco Use Smoking status: Never Smoker Smokeless tobacco: Never Used Substance Use Topics Alcohol use: Not Currently Family History Problem Relation Age of Onset COPD Mother Medications Prior to Admission Medication Sig Dispense Refill Last Dose bumetanide (BUMEX) 1 mg tablet Take five tablets by mouth twice daily for 30 days. 240 tablet 0 02/02/2021 calcium carbonate (OS-KRUPA) 1250 mg tablet Take 1,250 mg by mouth daily. ergocalciferol (VITAMIN D-2) 1,250 mcg (50,000 unit) capsule Take 1 capsule by mouth every 7 days. Past Week ferrous gluconate (FERGON) 240 mg (27 mg [...] mouth daily 30 minute s before breakfast. 02/02/2021 midodrine (PROAMATINE) 5 mg tablet Take three tablets by mouth three times d aily. 270 tablet 3 02/02/2021 mupirocin (BACTROBAN) 2 % topical ointment Apply 1 g topically to affected a constantino three times daily. oxybutynin chloride (DITROPAN) 5 mg tablet Take one tablet by mouth three ti mes daily. 180 tablet 0 02/02/[address] (PROTONIX) 40 mg tablet Take 40 mg by mouth twice daily. 1 04/04/2020 sertraline (ZOLOFT) 100 mg tablet Take one tablet by mouth twice daily. 180 tablet 0 02/02/2021 spironolactone (ALDACTONE) 25 mg tablet Take three tablets by mouth daily. T loretta with food. 274 tablet 3 02/02/2021 VASCEPA 1 gram capsule TAKE 2 CAPSULES BY MOUTH TWICE DAILY WITH MEALS 02/2021 warfarin (COUMADIN) 1 mg tablet Take two tablets by mouth daily. 120 tablet 0 02/01/2021 No Known Allergies Review of Systems Constitutional: negative Ears, nose, mouth, throat, and face: negative Respiratory: negative Cardiovascular: negative Gastrointestinal: positive for abdominal distension Musculoskeletal:negative Neurological: negative Behavioral/Psych: negative Physical Exam: Vital Signs: Last Filed In 24 Hours Vital Signs: 24 Hour Range BP: 112/74 (02/02 1420) Temp: (P) 36.7 C (98 F) (02/02 142) Pulse: 128 (02/02 1420) Respirations: 15 PER MINUTE (02/02 1420) SpO2: 98 % (02/03 1420) SpO2 Pulse: 69 (02/02 1420) BP: (112)/(74) Temp: [36.7 C (98 F)] Pulse: [128] Respirations: [15 PER MINUTE] SpO2: [98 %] General appearance: alert and no distress noted. Neurologic: Grossly normal. Lungs: Non labored. Heart: regular rate and rhythm Abdomen: distended Pre-procedure anxiolysis plan: N/A Sedation/Medication Plan: Local anesthetic Personal history of sedation complications: Denies adverse event. Family history of sedation complications: Denies adverse event. Medications for Reversal: NA Discussion/Reviews: Physician has discussed risks and alternatives of this type of sedation and above planned procedures with patient NPO Status: NA Airway: NA Head and Neck: NA Mouth: NA Anesthesia Classification: NA local only Status: N/A Lab/Radiology/Other Diagnostic Tests: Labs: Pertinent labs reviewed HOSSEIN Hanna Pager [phone] TER MACHINE TENDER documented in this encounter Procedure Notes * Cyrus Cr MD - 02/02/2021 3:54 PM PLASTER MACHINE TENDER Immediate Post Procedure Note Date: 02/02/2021 Attending Physician: Gideon Performing Provider: Cyrus Cr MD Consent: Consent obtained from patient. Time out performed: Consent obtained, correct patient verified, correct procedur e verified, correct site verified, patient marked as necessary. Pre/Post Procedure Diagnosis: Ascites Indications: Ascites Procedure(s): Paracentesis Findings: Yellow fluid obtained Estimated Blood Loss: None/Negligible Specimen(s) Removed/Disposition: Yes, sent to pathology Complications: None Patient Tolerated Procedure: Well Post-Procedure Condition: stable Cyrus Cr MD Pager [phone] TER MACHINE TENDER documented in this encounter Miscellaneous Notes * Patient Instructions - Esther Fonseca RN - 02/02/2021 2:05 PM PLASTER MACHINE TENDER Images from the original note were not [...] to the procedu re performed at the [place] Location, call [phone] Friday-Friday from 7 -5p. After-hours and weekends, please call [phone] and ask for the [facility] Sanitary Engineering Teacher on-call. You or your caregiver should call [phone] for any severe symptoms such as excessive bleeding, severe dizziness, trouble breathing or loss of consciousness. TER MACHINE TENDER documented in this encounter Plan of Treatment Care Team Description Date Type Specialty [facility] MD [address] [facility] [place] [address] [place] [address] [facility] [address] [place] [address] 03/22/2021 Hospital Radiology Encounter [place]az [place] [address] [place] [address] Nonrheumatic tricuspid valve regurgitati on 03/27/2021 Hospital Cardiology Encounter Jacob Almaraz [place] [address] [place] [address] CATHETERIZATION RIGHT HEART 03/27/2021 Surgery Cardiology Date/Time Name Priority Associated Diagnose s 03/27/2021 9:05 AM PLASTER MACHINE TENDER CATHETERIZATION RIGHT HEART Nonrheumatic tricuspid valve regurgitation documented as of this encounter Goals Goal Patient Associated Recent Progress Patient-Stat Aut hor Goal Type Problems ed? Improve [facility] On track (10/23/2020 Yes Sheldon, 1:06 PM CDT) CHRYSTAL Singh [facility] On track (12/25/2020 Yes Sheldon, 2:41 PM CDT) CHRYSTAL Singh Note: "To get better and stronger." documented as of this encounter Procedures Comments Procedure Name Priority Date/Time Associated Diag nosis IR PARACENTESIS Routine 02/02/2021 Chronic heart failure THERAPEUTIC 4:19 PM PLASTER MACHINE TENDER with preserved ejec tion fraction (HCC) RVF (right ventricular failure) (HCC) Other cirrhosis of liver (HCC) documented in this encounter Results * IR PARACENTESIS THERAPEUTIC (02/02/2021 4:19 PM PLASTER MACHINE TENDER) Modality Anatomical Region Laterality Ultrasound Specimen Impressions [facility] RAD RESULTS - 02/03/2021 8:39 AM PLASTER MACHINE TENDER Successful ultrasound guided paracentesis. 7000 mL of fluid was removed. IGiancarlo M.D, the attending radiologist, was present for [...] [facility] RAD RESULTS - 02/03/2021 8:39 AM PLASTER MACHINE TENDER 7000 Ultrasound-guided paracentesis CLINICAL INDICATION: Ascites SPORTS MEDICINE SPECIALIST: Cyrus Cr M.D. and Giancarlo Meneses M.D. MEDICATIONS: Lidocaine TECHNIQUE: Transverse real time images were obtained through the abdomen. The risks and benefits of this procedure were discussed and informed written consent was obtained prior to performing the procedure. The abdomen was then prepped and draped in usual sterile fashion. Limited ultrasound of the abdomen was performed. Under ultrasound guidance, a 5 [place]ican centesis needle was advanced into the peritoneal [...] 02/03/2021 7000 Ultrasound-guided paracentesis CLINICAL INDICATION: Ascites SPORTS MEDICINE SPECIALIST: Cyrus Cr M.D. and Giancarlo Meneses M.D. MEDICATIONS: Lidocaine TECHNIQUE: Transverse real time images were obtained through the abdomen. The risks and benefits of this procedure were discussed and informed written consent was obtained prior to performing the procedure. The abdomen was then prepped and draped in usual sterile fashion. Limited ultrasound of the abdomen was performed. Under ultrasound guidance, a 5 [place]ican centesis needle was advanced into the peritoneal [...] Dose Rate Site Medication Order MAR Action 02/02/2021 4:17 PM PLASTER MACHINE TENDER 12.5 g albumin 25% injection Given - New INTRA-PROCEDURE MED(CONT), Starting on Bag Fri02/02/21 at 1610, Until Fri 1 at 1617 12.5 g Given - New Bag 02/02/2021 4:14 PM PLASTER MACHINE TENDER 12.5 g Given - New Bag 02/02/2021 4:10 PM PLASTER MACHINE TENDER 02/02/2021 4:20 PM PLASTER MACHINE TENDER 12.5 g albumin 25% injection Given - New INTRA-PROCEDURE MED(CONT), Starting on Bag Fri02/02/21 at 1620, Until Fri 1 at 1620 documented in this encounter Active and Recently Administered Medications Times are shown in PLASTER MACHINE TENDER. 02/01/2021 02/02/2021 Medication Order 01/31/2021 1610 (Given - New Bag - Provider: Court Diaz RN)1614 (Given - New Bag - Provider: Court Diaz RN)1617 (Given - New Bag - Provider: Court Diaz RN) albumin 25% injection (COMPLETED) INTRA-PROCEDURE MED(CONT), Starting on Fri02/02/21 at 1610, Until Fri 1 at 1617 1620 (Given - New Bag - Provider: Court Diaz RN) albumin 25% injection (COMPLETED) INTRA-PROCEDURE MED(CONT), Starting on Fri02/02/21 at 1620, Until Fri 1 at 1620 documented in this encounter Additional Health Concerns Noted Time Assessment 02/02/2021 2:24 PM PLASTER MACHINE TENDER A fall risk assessment has been complet ed for the patient 12/07/2020 3:18 PM CDT PHQ-2 Depression Total Score: 2 documented as of this encounter Care Teams Start Date End Date Returns Processor Relationship Specialty 05/15/20 Garfield Gray MD PCP - [address] [address] 06/13/20 Riley Hopson MD Consulting Cardiovascul [address] Physician [address] Disease [address] [place], [place] [address] 12/20/20 Gino Pandya APRN-MEASUREMENT SUPERINTENDENT Nurse Nurse [address] [place] [phone] 01/19/21 Teri Brandon Continuum of Care Case Management documented as of this encounter
--- OUTSIDE RECORDS SUMMARY | 2021-03-11 12:18 | XMS REPORT | Encounter Summary ---
Author Author [facility] Organization [facility] Address Unknown Phone Unavailable Care Team Providers Care Commodity Lead Name Role Phone Self, Garfield OLVERA PCP Riley Hopson MD [phone] Gino Pandya NURSE NAVIGATOR-FINANCIAL ADVISOR TRAINEE [phone] Caitlin Desai [phone] Unavailable Encounter Details Care Team Description Date Type Department Nithya Madison NURSE NAVIGATOR-FINANCIAL ADVISOR TRAINEE [address] [place] [address] 01/11/2021 [facility] [address] [address] Social History Date Tobacco Use Types Packs/Day Years Used Never Smoker Smokeless Tobacco: Never Used Comments Alcohol Use Standard Drinks/Week Not Currently 0 (1 standard drink = 0.6 o z pure alcohol) Sex Assigned at Date Recorded 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 12/31/2020 01/14/2021 amoxicillin-potassium Take one 28 tablet 0 clavulanate (AUGMENTIN) tablet by 875/125 mg tablet mouth twice daily for 14 days. Take with food. 12/30/2020 01/17/2021 bumetanide (BUMEX) 1 mg Take three 180 [...] Date Type Specialty Carlos Longo MD 4000 [facility] [place], [place] [id number] [place] [address] [place] [phone] 03/22/2021 [facility] Radiology [place] [address] [place] [phone] Nonrheumatic tricuspid valve regurgitati on 03/27/2021 [facility] Cardiology [place]counter [place]maraz [place] [address] [place] [phone] CATHETERIZATION RIGHT HEART 03/27/2021 Surgery Cardiology Date/Time Name Priority Associated Diagnose s 03/27/2021 9:05 AM SLATE SPLITTING SUPERVISOR CATHETERIZATION RIGHT HEART Nonrheumatic tricuspid valve regurgitation documented as of this encounter Goals Goal Patient Associated Recent Progress Patient-Stat Aut hor Goal Type Problems ed? [facility] On track (10/23/2020 Yes Sheldon, 1:06 PM CDT) CHRYSTAL Singh [facility] On track (12/25/2020 Yes Sheldon, 2:41 PM CDT) Samantha, RN Note: "To get better and stronger." documented as of this encounter Procedures Comments Procedure Name Priority Date/Time Associated Diag nosis HC PT(INR) Routine 01/11/2021 Paroxysmal atri al 4:11 PM CDT fibrillation (HCC) HC CBC,AUTOMATED Routine 01/11/2021 Acute on magneto electrician shantanu 4:11 PM CDT diastolic (congestive) heart [...] Hypotension, unspecified hypotension type Cardiogenic shock (HCC) HC BASIC METABOLIC PANEL Routine 01/11/2021 RVF ( right ventricular 4:11 PM CDT failure) (HCC) Acute on chronic heart failure with preserved ejection fraction (HCC) Stage 3b chronic kidney disease (HCC) documented in this encounter Results * PROTIME INR (PT) (01/11/2021 4:11 PM CDT) INR 1.2 0.8 - 1.2 [facility] Specimen Blood Performing Organization Address City/State/ZIP Code P shane Number [facility] [address] [place] [address] * (ABNORMAL) BASIC METABOLIC PANEL (01/11/2021 4:11 PM CDT) Sodium 130 (L) 137 - 147 MMOL/L [facility] Potassium 4.1 3.5 - 5.1 MMOL/L [facility] Chloride 95 (L) 98 - 110 MMOL/L [facility] CO2 26 21 - 30 MMOL/L [facility] Anion Gap 9 3 - 12 [facility] Glucose 102 (H) 70 - 100 MG/DL [facility] Blood Urea 19 7 - 25 MG/DL [facility] Nitrogen Creatinine 1.62 (H) 0.4 - 1.00 MG/DL [facility] Calcium 8.8 8.5 - 10.6 MG/DL [facility] eGFR Non 33 (L) >60 mL/min [facility] Comment: [place] The eGFR is not validated f or use in drug dosing adjustments. Continue to use estimated creatinine clearance per dosing reference text. Please contact the Clinical Pharmacist for questions. eGFR 39 (L) >60 mL/min [facility] [place] Comment: The eGFR is not validated for use in drug dosing adjustments. Continue to use estimated creatinine clearance per dosing reference text. Please contact the Clinical Pharmacist for questions. Specimen Blood Performing Organization Address City/State/ZIP Code P shane Number [facility] [address] [place] [address] * (ABNORMAL) CBC (01/11/2021 4:11 PM CDT) White Blood 7.1 4.5 - 11.0 K/UL [...] MAIN LAB Specimen Blood Performing Organization Address City/[facility]/ZIP Code P shane Number [facility] [address] [place] [address] documented in this encounter Visit Diagnoses Diagnosis Acute on chronic diastolic (congestive) heart failure (HCC) Cirrhosis of liver without ascites, uns pecified hepatic cirrhosis type (HCC) Non-ischemic cardiomyopathy (HCC) Other primary cardiomyopathies Severe malnutrition (HCC) Nutritional marasmus Iron deficiency anemia due to chronic b lood loss Iron deficiency anemia secondary to blo od loss (chronic) Gastrointestinal hemorrhage, unspecifie d gastrointestinal hemorrhage type Acute on chronic heart failure with pre served ejection fraction (HCC) Aortic valve prosthesis present Heart valve replaced by other means Acute kidney injury superimposed on CKD (HCC) RVF (right ventricular failure) (HCC) Congestive heart failure, unspecified Acute on chronic right-sided heart fail ure (HCC) Chronic heart failure with preserved ej ection fraction (HCC) Hx of mechanical aortic valve replaceme nt Heart valve replaced by other means Hypotension, unspecified hypotension ty pe Cardiogenic shock (HCC) Cardiogenic shock Stage 3b chronic kidney disease (HCC) Chronic anticoagulation Long-term (current) use of [...] encounter Care Teams Start Date End Date Commodity Lead Relationship Specialty 05/15/20 Garfield Gray MD PCP - [address] [id number] 06/13/20 Riley Hopson MD Consulting Cardiovascul [address] [place] [address] Physician ar Disease [address] [place], [place] [address] 12/20/20 Gion Pandya, NURSE NAVIGATOR-FINANCIAL ADVISOR TRAINEE Nurse Nurse [address] [phone] 12/25/20 01/16/21 Caitlin Desai Continuum of Care Case Management documented as of this encounter
--- OUTSIDE RECORDS SUMMARY | 2021-03-11 12:18 | XMS REPORT | Encounter Summary ---
Author Author [facility] Organization [facility] Address Unknown Phone Unavailable Care Team Providers Care Molder Meat Name Role Phone Self, Garfield OLVERA PCP Riley Hopson MD [phone] Gino Pandya APRN-SMOOTH PLATER [phone] Teri Brandon [phone] Unavailable Reason for Visit * Reason Comments Anticoagulation INR 1.1 Encounter Details Care Team Description Date Type Department Josi Purvis BSN Anticoagulation (INR 1.1) 02/01/2021 Anticoagulation Cardiology: [facility] [address] [place] [address] [address], [address] [place] [address] Social History Date Tobacco Use Types Packs/Day Years Used Never Smoker Smokeless Tobacco: Never Used Comments Alcohol Use Standard Drinks/Week Not Currently 0 (1 standard drink = 0.6 o z pure alcohol) Sex Assigned at Date Recorded 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 Longo, he gave order for patient to have warfarin 6 mg tonight, tomorrow then 4 mr on Friday and Friday. Will plan to recheck INR CE DISTRICT SWITCHBOARD OPERATOR documented in this encounter Plan of Treatment Care Team Description Date Type Specialty Carlos Longo MD 4000 [facility] [place] [address] [place] [address], [address] [place] [phone] 03/22/2021 Hospital Radiology [place]counter [place] [address] [place] [phone] Nonrheumatic tricuspid valve regurgitati on 03/27/2021 Hospital Cardiology [place] [address], [address] [place] [phone] CATHETERIZATION RIGHT HEART 03/27/2021 Surgery Cardiology Date/Time Name Priority Associated Diagnose s 03/27/2021 9:05 AM POLICE DISTRICT SWITCHBOARD OPERATOR CATHETERIZATION RIGHT HEART Nonrheumatic tricuspid valve regurgitation documented as of this encounter Goals Goal Patient Associated Recent Progress Patient-Stat Aut hor Goal Type Problems ed? [facility] On track (10/23/2020 Yes Sheldon, 1:06 PM CDT) CHRYSTAL Singh [facility] On track (12/25/2020 Yes Sheldon, 2:41 [...] encounter Care Teams Start Date End Date Molder Meat Relationship Specialty 05/15/20 Garfield Gray MD PCP - [address] [phone] 06/13/20 Riley Hopson MD Consulting Cardiovascul [address] [place] [address] Physician ar Disease [address] [place], [place] [address] 12/20/20 Gino Pandya, AFTER SCHOOL DRIVER-SMOOTH PLATER Nurse Nurse [address] [address] 01/19/21 Teri Brandon Continuum of Care Case Management documented as of this encounter
--- OUTSIDE RECORDS SUMMARY | 2021-03-11 12:18 | XMS REPORT | Encounter Summary ---
Author Author [facility] Organization [facility] Address Unknown Phone Unavailable Care Team Providers Care Clinical Dietitian Name Role Phone Self, Garfield OLVERA PCP Riley Hopson MD [phone] Gino Pandya APRN-SERVICE TRAINER [phone] Teri Brandon [phone] Unavailable Reason for Visit * Reason Comments Anticoagulation INR 1.2 Encounter Details Care Team Description Date Type Department Josi Purvis BSN Anticoagulation (INR 1.2) 01/18/2021 Anticoagulation Cardiology: [facility] [address] [place] [address] [address], [address] [place] [address] Social History Date Tobacco Use Types Packs/Day Years Used Never Smoker Smokeless Tobacco: Never Used Comments Alcohol Use Standard Drinks/Week Not Currently 0 (1 standard drink = 0.6 o z pure alcohol) Sex Assigned at Date Recorded 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 Date Recorded COVID-19 Exposure Response 01/11/2021 [...] Specialty Carlos Longo MD 4000 [facility] [id number] [place] [address] [place] [address] [place] [phone] 03/22/2021 Hospital Radiology Encounter Jacob Almaraz [place] [address] [place] [phone] Nonrheumatic tricuspid valve regurgitati on 03/27/2021 Hospital Cardiology Encounter Jacob Almaraz MD [address], [address] [place] [phone] CATHETERIZATION RIGHT HEART 03/27/2021 Surgery Cardiology Date/Time Name Priority Associated Diagnose s 03/27/2021 9:05 AM FAX MACHINE OPERATOR CATHETERIZATION RIGHT HEART Nonrheumatic tricuspid valve regurgitation documented as of this encounter Goals Goal Patient Associated Recent Progress Patient-Stat Aut hor Goal Type Problems ed? [facility] On track (10/23/2020 Yes Sheldon, 1:06 PM [...] encounter Care Teams Start Date End Date Clinical Dietitian Relationship Specialty 05/15/20 Garfield Gray MD PCP - [address] [address] 06/13/20 Riley Hopson MD Consulting Cardiovascul [address] Physician ar Disease [address] [place], [place] [address] 12/20/20 Gino Pandya, GOVERNMENT GUARD-SERVICE TRAINER Nurse Nurse 4000 [facility] Practitioner Practitioner [address] [address] 01/19/21 Teri Brandon Continuum of Care Case Management documented as of this encounter
--- OUTSIDE RECORDS SUMMARY | 2021-03-11 12:18 | XMS REPORT | Encounter Summary ---
Author Author [facility] Organization [facility] Address Unknown Phone Unavailable Care Team Providers Care Gasket Maker Name Role Phone Self, Garfield OLVERA PCP Riley Hopson MD [phone] Gino Pandya APRN-MOWER OPERATOR [phone] Caitlin Desai [phone] Unavailable Reason for Referral * Consult, Test & Treat (Routine) - Pending Review Diagnoses / Procedures Referred By Contact Referred To [facility] Specialty Procedures REQUEST FOR CARDIOLOGY APPOINTMENT Nithya Madison APRN-NP [address] [place] [address] Referral ID Status Reason Start Date Expiration Visits Vi sits Date Requested Authorized [id number] Pending 01/11/2021 01/11/2022 1 1 Review Reason for Visit * Reason Comments Post-hospital Follow Up * Consultation (Discharge Pending) - New Request Diagnoses / Procedures Referred By [facility] APPOINTMENT REQUEST: CARDIOLOGY HEART FAILURE Aristeo Reveles MD [address] [facility] [address] [place] [address] [facility] [address] [facility] [address], [address] [place] [address] Cardiology Referral ID Status Reason Start Date Expiration Visits Vi sits Date Requested Authorized [id number] New Request 2021 2022 1 1 Encounter Details Care Team Description Date Type Department Nithya Madison APRN-TWYLA [address] [place] [address] Post-hospital Follow Up 01/11/2021 Office Visit Cardiology: [facility] 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 documented as of this encounter Last Filed Vital Signs Reading Time Taken Comments Vital Sign 102/54 01/11/2021 3:09 PM CDT Blood Pressure 95 01/11/2021 3:09 PM CDT Pulse 36.7 C (98 F) 01/11/2021 3:09 PM CDT Temperature - - Respiratory Rate 97% 01/11/2021 3:09 PM CDT Oxygen Saturation - - Inhaled Oxygen Concentration 56.6 kg (124 lb 12.8 oz) 01/11/2021 3:09 PM CDT Weight 157.5 cm (5' 2") 01/11/2021 3:09 PM CDT Height 22.83 01/11/2021 3:09 PM CDT Body Mass Index documented in [...] Date End Date Prescription Sig Dispensed Refills 01/11/2021 02/21/2021 spironolactone Take three 274 tablet 3 (ALDACTONE) 25 mg tablet tablets by mouth daily. Take with food. documented in this encounter Progress Notes * Nithya Madison, RYAN-MOWER OPERATOR - 01/11/2021 3:30 PM CDT Date of Service: 01/11/2021 Zaria Paulson is a 61 y.o. female. [...] from treatment with non-Hodgkin lymphoma). She was hospitalized 05/2020 for heart failure. She was rehospitalized for acute on chronic heart failure and GI bleed. [facility] given her GI bleed she is no longer a good candidate. She was hosp italized again for GI bleed and nontraumatic rectus hematoma.She was then rehospitalized for acute on chronic hospitalization and ag ain for septic shock. She presented to clinic on 01/02 and was found to be 7 pounds above her discharg e weight (13 pounds above from clinic weight. She was then was hospitalized 1209/. She was seen by GI and underwent an EGD that showed varices mo derate portal hypertension gastropathy. There was a suspected GI bleed from the portal gastropathy but no active bleeding and her Coumadin was continued. She was aggressively diuresed. She was treated with midodrine for her hypotension. Metoprolol tartrate discontinued. She also experienced LEONORA which improved with diuresis. For her ascites she underwent a paracentesis and they removed 5300 mL of fluid. As stated above she has had 6 hospitalizations in the last year for those hospit alizations included volume overload. She has also undergone 3 paracentesis in a month's time, on 91 they removed 6300 mL, on 12/23 4300 mL, and on 01/02 5300 m L. She is here today for post hospital follow-up. She reports having a significant amount of abdominal bloating starting again on the (1 day after discharge). She believes her abdomen is getting rounder every day. Her weight is currently up from 222 pounds to 224 pounds. She states her heart rate at rest is contr olled but as soon as she starts to move her heart rate goes up. She is sleeping with 2 pillows. She is not having any lower extremity edema. She states her s tools have normalized, no signs/symptoms of bleeding. Her blood pressure at [facility] is been 830670/70s. She has been working hard at following a 2 g sodium di et and 1500 mL fluid restriction. She is taking her medications as prescribed. She paroxysmal nocturnal dyspnea, early satiety, chest pain, irregular heartbea t/palpitations, dizziness, and/or syncope/near syncope. Vitals: 01/11/21 1509 BP: 102/54 BP Source: Arm, Right Upper Patient Position: Sitting Pulse: 95 Temp: 36.7 C (98 F) TempSrc: Skin SpO2: 97% Weight: 56.6 kg (124 lb 12.8 oz) Height: 1.575 m (5' 2") PainSc: Zero Body mass index is 22.83 kg/m. Past Medical History Patient Active Problem List Diagnosis Date Noted Fall 2021 Acute kidney injury superimposed on CKD ([facility]) 01/02/2021 Severe malnutrition ([facility]) 12/27/2020 Severe sepsis ([facility]) 12/22/2020 Acute on chronic diastolic (congestive) heart failure ([facility]) 12/10/2020 RVF (right ventricular failure) ([facility]) 11/30/2020 Hyponatremia 11/30/2020 Acute on chronic heart failure ([facility]) 11/29/2020 Hematoma of left flank 11/15/2020 Hematoma [...] with preserved ejection fraction (HCC) Yes Stage 3b chronic kidney disease (HCC) Severe tricuspid regurgitation Paroxysmal atrial fibrillation (HCC) Non-ischemic cardiomyopathy (HCC) Other cirrhosis of liver (HCC) Gastrointestinal hemorrhage, unspecified gastrointestinal hemorrhage type Other specified hypotension Assessment and Plan Chronic Heart Failure with Preserved Ejection Fraction: -Echo on11/30/2020 showed an EF of 55 %. -GDMT:Spironolactone 50 mg twice daily daily, [id number] twice daily (GDMT/d iuresis limited due to hypotension) -She is not a candidate for Cardio[facility] due to her recent GI bleed. -Today, she describes NYHA Functional ClassIII symptoms, appears hypervolemic by exam. She reports only being home 1 day before starting to experience abdom inal bloating again. Her weight is up 2 pounds, from 222 pounds to 224 pounds. Given the complexity of her condition with the heart failure, severe tricuspid regurgitation, and cirrhosis (frequent need for paracentesis) I will need to alta k to Dr. Longo about next steps in trying to keep her out of the hospital. -For now we will work on increasing her diuretics. She will go up on her spiron olactone to 75 mg twice daily. Discontinue potassium. Check BMP in 1 week. -Have instructed her to contact us if she gains weight or has any worsening symp toms. And we will continue to work on diuretic adjustment. Have left her midod rine on for now but if her blood pressures remain stable we will work on titrati ng that off. -Reinforce 2 g sodium diet and 1500 mL fluid restriction. -Follow-up with heart failure nurse practitioner in 2 weeks. This can be via [facility] unless she has significant weight gain then we will change it to in per son in case we need to admit her. Non-Ischemic Cardiomyopathy: -GDMT as described above Atrial [...] overload riddhi l improve her tricuspid regurgitation. Hypotension: -Her blood pressures at home have been greater than 110 systolically. She denie s any dizziness. We will adjust her diuretics and if her blood pressure continu es to hold will work on titrating her off her midodrine. Chronic Kidney Disease - StageIII: -Her creatinine on 01/08/2021 was 1.21. Recheck BMP in 1 week after adjustments of diuretics. Cirrhosis: -She has had ongoing issues with cirrhosis, undergoing 3 peritoneal taps in the last month with 4-6 L of fluids removed each time. -Have encouraged her to make an appointment with Dr. Marti as soon as possible. -In the meantime I will review her condition with Dr. Longo to see if we can hel p with determining next steps. GI Bleed: -She recently experienced GI bleed. She reports her stools have normalized and there is no signs/symptoms of bleeding at this time. Follow Up Visit:heart failure nurse practitioner in 2 weeks. I have personally documented the HPI, exam [...] concerns prior to the next appointment. Total [id number]. Estimated counseling time 25minutes. Thank you for allowing me to participate in the care of this patient. If you hav e any questions please do not hesitate to contact our office. Berna Madison, DNP, SPACE OPERATIONS OFFICER, MOWER OPERATOR-C Collaborating Physician: Dr. Ramo Lamb Sibley [facility] Current Medications (including today's revisions) amoxicillin-potassium clavulanate (AUGMENTIN) 875/125 mg tablet Take one tab let by mouth twice daily for 14 days. Take with food. bumetanide (BUMEX) 1 mg tablet Take three tablets by mouth twice daily for 3 0 days. calcium carbonate (OS-KRUPA) 1250 mg [...] tablets by mouth three times d aily. mupirocin (BACTROBAN) 2 % topical ointment Apply [...] by mouth daily. T loretta with food. VASCEPA 1 gram capsule TAKE 2 CAPSULES BY MOUTH TWICE DAILY WITH MEALS warfarin (COUMADIN) 1 mg tablet Take two tablets by mouth daily. documented in this encounter Miscellaneous Notes * Patient Instructions - Yesica Oliver MA - 01/11/2021 3:30 PM CDT Thank you for coming to [facility]. Your instructions tod ay: 1. Recommendations: - Increase spironolactone 75mg twice daily. - Stop potassium. - Check labs in 1 week, BMP - Continue to keep a log of your weight, blood pressure, and heart rate. Bring t o the next clinic visit. - Follow a 2 gm sodium diet and 2 L fluid restriction. - Call if you gain 3 lbs overnight or 5 lbs in 1 week OR if you have worsening s ymptoms (increased shortness of breath/swelling). - Call if you become dizzy/ lightheaded or if your blood pressure consistently d rops below 90/40. - To report symptoms to the heart failure team call [phone]. - Will discuss with Dr. Longo next steps. - Try to get in with Dr. Marti as soon as possible. 2. Next follow up appointment in 2 weeks with Berna Madison or Basilia hayes telehealth. For up to date information on the [...] symptoms o In a medical emergency, call [phone] or go to the nearest emergency room. If you wish to contact us, please call and leave a message for the heart failure nurses at [phone]. For urgent issues after hours, on the weekends or holidays, please call [phone] to be connected with the nurse or doctor production tester. To schedule or change an appointment call [phone]. MD Basilia Jeffers APRN Nikki Mattison, RYAN Parham, CHRYSTAL Steel, CHRYSTAL Padilla, CHRYSTAL Sibley for [facility] Your Heart Failure Symptom Awareness [...] symptoms. Please call the heart failure nurses: [phone] Shortness of breath at rest or waking [...] pink, frothy sputum documented in this encounter Plan of Treatment Care Team Description Date Type Specialty Carlos Longo MD [address] [facility] [place] [address] [place] [address] [place] [address] 03/22/2021 Hospital Radiology [place]counter [place] Al[place]az [address] [place] [id number] Nonrheumatic tricuspid valve regurgitati on 03/27/2021 Hospital Cardiology [place] [address] [place] [address] CATHETERIZATION RIGHT HEART 03/27/2021 Surgery Cardiology Date/Time Name Priority Associated Diagnose s 03/27/2021 9:05 AM GIMP TACKER CATHETERIZATION RIGHT HEART Nonrheumatic tricuspid valve regurgitation documented as of this encounter Goals Goal Patient Associated Recent Progress Patient-Stat Aut hor Goal Type Problems ed? [facility] On track (10/23/2020 Yes Sheldon, 1:06 PM CDT) CHRYSTAL Singh [facility] On track (12/25/2020 Yes Sheldon, 2:41 PM CDT) CHRYSTAL Singh Note: "To get better and stronger." documented as of this encounter Results * (ABNORMAL) BASIC METABOLIC PANEL (01/23/2021 2:23 PM CDT) Sodium 131 (L) 137 - [...] (L) >60 mL/min [facility] Comment: Czech The eGFR is not validated f or use in drug dosing adjustments. Continue to use estimated creatinine clearance per dosing reference text. Please contact the Clinical Pharmacist for questions. eGFR 59 (L) >60 mL/min [facility] [place] Comment: The eGFR is not validated for use in drug dosing adjustments. Continue to use estimated creatinine clearance per dosing reference text. Please contact the Clinical Pharmacist for questions. Specimen Blood Performing Organization Address City/State/ZIP Code P shane Number [facility] [address] [place] [place] [address] documented in this encounter Visit Diagnoses Diagnosis Chronic heart failure with preserved ej ection fraction (HCC) - Primary Stage 3b chronic kidney disease (HCC) Severe tricuspid regurgitation Diseases of tricuspid valve Paroxysmal atrial fibrillation (HCC) Atrial fibrillation Non-ischemic cardiomyopathy (HCC) Other primary cardiomyopathies Other cirrhosis of liver (HCC) Gastrointestinal hemorrhage, unspecifie d gastrointestinal hemorrhage type Other specified hypotension Nonrheumatic tricuspid valve regurgitat ion Tricuspid valve disorders, specified as nonrheumatic documented in this encounter Discontinued Medications Start Date End Date Medication Sig Discontinue Reason 2021 01/11/2021 spironolactone Take (ALDACTONE) 100 mg one-half tabletIndications: Acute tablet by on chronic heart failure mouth twice with preserved ejection daily. Take fraction (HCC), Aortic with food. valve prosthesis present 01/11/2021 potassium chloride SR Take 20 mEq (K-DUR) 20 mEq tablet by mouth twice daily. Take with a meal and a full glass of water. documented as of this encounter Orders First [...] encounter Care Teams Start Date End Date Gasket Maker Relationship Specialty 05/15/20 Garfield Gray MD PCP - [address] [place] [address] 06/13/20 Riley Hopson MD Consulting Cardiovascul [address] Physician [address] Disease [address] [place], [place] [address] 12/20/20 Gino Pandya, SPACE OPERATIONS OFFICER-MOWER OPERATOR Nurse Nurse [address] [place] [phone] 12/25/20 01/16/21 Caitlin Desai Continuum of Care Case Management documented as of this encounter
--- OUTSIDE RECORDS SUMMARY | 2021-03-11 12:18 | XMS REPORT | Encounter Summary ---
Author Author [facility] Organization [facility] Address Unknown Phone Unavailable Care Team Providers Care Detective And Intelligence Analyst Name Role Phone Self, Garfield OLVERA PCP Riley Hopson MD [phone] Gino Pandya ORTHOPEDIC RN-LEGISLATIVE AIDE [phone] Teri Brandon [phone] Unavailable Reason for Referral * Radiology Services (Routine) - Authorized Diagnoses / Procedures Referred By Contact Referred To Conta ct Specialty Diagnoses Chronic heart failure with preserved ejection fraction (HCC) RVF (right ventricular failure) (HCC) Other cirrhosis of liver (HCC) Procedures IR PARACENTESIS THERAPEUTIC Carlos Longo MD [address] [address] [address] [place] [address] [place] [address] Radiology Referral ID Status Reason Start Date Expiration Visits Vi sits Date Requested Authorized [id number] Authorized 01/22/2021 01/22/2022 20 20 Reason for Visit * Radiology Services (Routine) - Authorized Diagnoses / Procedures Referred By Contact Referred To Conta ct Specialty Diagnoses Chronic heart failure with preserved ejection fraction (HCC) RVF (right ventricular failure) (HCC) Other cirrhosis of liver (HCC) Procedures IR PARACENTESIS THERAPEUTIC Carlos Longo MD [address] [place] [address] [address] [place] [address] [place] [address] Radiology Referral ID Status Reason Start Date Expiration Visits Vi sits Date Requested Authorized [id number] Authorized 01/22/2021 01/22/2022 20 20 Encounter Details Care Team Description [place] [address], [address] [place] [phone] Alondra Augustin, Roxanne Maya, RT(R)(),LRT Chronic heart failure with preserved eje ction fraction (HCC) 01/23/2021 Hospital Interventional Radi ology: Encounter [facility] [address] [place] [phone] Social History Date Tobacco Use Types Packs/Day Years Used Never Smoker Smokeless Tobacco: Never Used Comments Alcohol Use Standard Drinks/Week Not Currently 0 (1 standard drink = 0.6 o z pure alcohol) Sex Assigned at Date Recorded Female 06/01/2020 1:44 PM DE ALCHOLIZER Date Recorded COVID-19 Exposure Response 01/23/2021 1:48 PM CDT In the last month, have you been in contact with No / Unsure someone who was confirmed or suspected to have Coronavirus / COVID-19? documented as of this encounter Last Filed Vital Signs Reading Time Taken Comments Vital Sign 100/71 01/23/2021 3:45 PM CDT Blood Pressure - - Pulse 36.3 C (97.4 F) 01/23/2021 2:22 PM CDT Temperature - - Respiratory Rate 95% 01/23/2021 3:45 PM CDT Oxygen Saturation - - Inhaled [...] tablet 0 tablet tablets by mouth daily. 01/17/2021 01/24/2021 bumetanide (BUMEX) 1 mg Take [...] documented in this encounter Progress Notes * Agapito Shay, RN - 01/23/2021 3:00 PM CDT Dear Ms. Paulson, Thank you for choosing [facility] Interventional Rad iology for your procedure. Your appointment information is listed below: Appointment Date: 01/23/21 Appointment Time: 3pm Arrival Time: 2pm Location: [facility]: [address] [place] [address] Parking: available in the front of the building INTERVENTIONAL RADIOLOGY PRE-PROCEDURE INSTRUCTIONS SEDATION You are scheduled for a procedure in Interventional Radiology with procedural se dation. Please follow these instructions and any direction from your Primary Ca re/Managing Physician. If you have questions about your procedure or need to re schedule please call [phone]. Medication Instructions: You may take the following medications with a small sip of water: < ALL MEDICATIONS SCHEDULED > Diet Instructions: Maintain a regular diet with no restrictions. Day of Exam Instructions: 1. Bathe or shower with an antibacterial soap prior to your appointment. 2. If you have a history of Obstructive Sleep Apnea (CATE) bring your CPAP/BIPAP. 3. Bring a list of your current medications and the dosages. 4. Wear comfortable clothing and leave valuables at home. 5. Arrive (1) hour prior to your appointment. This time will be spent registeri ng, interviewing, assessing, educating and preparing you for the test. You will be with us anywhere from 30 minutes to 6 hours after your exam depe nding on your procedure. 6. You may be sedated for the procedure. A responsible adult must drive you home (no Uber, taxis or buses are allowed) and stay with you overnight. If you do not have a fleet driver we will be unable to perform your procedure. 7. You will not be able to return to work or drive the same day if receiving sed ation. * Agapito Shay RN - 01/23/2021 3:00 PM CDT Interventional Radiology Outpatient Scheduling Checklist 1. Name of Procedure(s): Para 2. Date of Procedure: 01/23/21 3. Arrival Time: 1400 4. Procedure Time: 1500 5. Correct Procedural Room Assignment: ICC 2 6. Blood Thinners Triaged and instructed per protocol: Y/N/NA: NA Confirmed accurate instructions sent to patient: Y/N: NA 7. Procedure Order Verified: Y/N: Yes 9. Patient instructed to have a fleet driver: Y/N/NA: Yes 10. Patient instructed on NPO status: Y/N/NA: NA Confirmed accurate instructions sent to patient: Y/N: Yes 11. Specimen needed: Y/N/NA: NA Verified Order placed: Y/N: Yes 12. Allergies Verified: Y/N: Yes 13. Is there an Iodine Allergy: Y/N: No Does the Procedure Require contrast: Y/N: NA If so, was the IR- Contrast Allergy Pre-Procedure Medication protocol ordered: Y /NA: NA 14. Does the patient have labs according to IR Pre-procedure Laboratory Paramet er policy: Y/N/NA: PLT 289 If No, was the patient instructed to obtain labs prior to procedure: Y/N/NA: NA 15. Will the patient need to be admitted or have a possible admission: Y/N: No If yes, confirmed accurate instructions sent to patient: Y/N/NA: NA 16. Patient States Understanding: Y/N: Yes 17. History of CATE: Y/N: If yes, confirm request to bring CPAP sent to patient: Y/N/NA: NA 18. Patient declines electronic procedure instructions: Y/N: Arm[facility] called to schedule patient. She is to call patient and provide instruct ions. * Summer Bragg RN - 01/23/2021 2:26 PM CDT Procedural education done with pt who verbalized understanding of procedure and post procedure care. All questions answered. Pt in position of comfort at this t chhaya. Safety precautions in place, call light in reach. documented in this encounter H&P Notes * Latesha Beltrán APRN-LEGISLATIVE AIDE - 01/23/2021 2:07 PM CDT Pre Procedure History and Physical/Sedation Plan-OP Procedure Date: 01/23/2021 Planned Procedure(s): US guided paracentesis Indication for exam: Abdominal ascites Chief Complaint: Abdominal distension History of Present Illness: Zaria Paulson is a 61 y.o. female. She presents to IR today for paracentesis. She reports abdominal fullness. She is agreeable t o procedure. Patient Active Problem List Diagnosis Date [...] 06/06/2020 Performed by Bao Hernández MD at [facility] COLONOSCOPY DIAGNOSTIC WITH SPECIMEN COLLECTION BY BRUSHING/ WASHING - FLEXI BLE N/A 06/06/2020 Performed by Bao Hernández MD at [facility] ANGIOGRAPHY CORONARY ARTERY WITH RIGHT AND LEFT HEART CATHETERIZATION N/A Performed by Higinio Clarke MD at [facility] POSSIBLE PERCUTANEOUS CORONARY STENT PLACEMENT WITH ANGIOPLASTY N/A Performed by Higinio Clarke MD at [facility] ESOPHAGOGASTRODUODENOSCOPY WITH SPECIMEN COLLECTION BY BRUSHING/ WASHING N/A 10/21/2020 Performed by Cosmo Gomez MD at [facility] ENDO SIGMOIDOSCOPY WITH CONTROL OF BLEEDING - FLEXIBLE N/A 10/21/2020 Performed by Cosmo Gomez MD at [facility] ENDO SIGMOIDOSCOPY WITH DIRECTED SUBMUCOSAL INJECTION - FLEXIBLE 10/21/2020 Performed by Cosmo Gomez MD at [facility] ENDO ESOPHAGOGASTRODUODENOSCOPY WITH CONTROL OF BLEEDING - FLEXIBLE N/A Performed by Bao Hernández MD at [facility] Medications Prior to Admission Medication Sig Dispense Refill Last Dose bumetanide (BUMEX) 1 mg tablet Take four tablets by mouth twice daily for 30 days. 240 tablet 0 calcium carbonate (OS-KRUPA) 1250 mg tablet Take 1,250 mg by mouth daily. ergocalciferol (VITAMIN D-2) 1,250 mcg (50,000 unit) capsule Take 1 capsule by mouth every 7 days. ferrous gluconate (FERGON) 240 mg (27 mg iron) tablet Take one tablet by daily. 90 tablet 1 fluticasone propionate (FLONASE) [...] three times d aily. 270 tablet 3 mupirocin (BACTROBAN) 2 % topical ointment Apply [...] T loretta with food. 274 tablet 3 VASCEPA 1 gram capsule [...] COPD Mother Review of Systems Constitutional: negative Ears, nose, mouth, throat, and face: negative Respiratory: negative Cardiovascular: negative Gastrointestinal: positive for abdominal distension Musculoskeletal:negative Neurological: negative Behavioral/Psych: negative Previous Anesthetic/Sedation History: Reviewed Code Status: Prior Physical Exam: Vital Signs: Last Filed In 24 Hours Vital Signs: 24 Hour Range General appearance: alert and no distress Neurologic: Grossly normal, at baseline Lungs: Nonlabored with normal effort Abdomen: distended Extremities: extremities normal, atraumatic, no cyanosis or edema Pre procedure anxiolysis plan: NA local only Sedation/Medication Plan: Lidocaine Personal history of sedation complications: Denies adverse event. Family history of sedation complications: Denies adverse event. Medications for Reversal: None Discussion/Reviews: Physician has discussed risks and alternatives of this type of sedation and above planned procedures with patient NPO Status: Acceptable Status: N/A Lab/Radiology/Other Diagnostic Tests: Labs: Pertinent labs reviewed Latesha Beltrán APRN-LEGISLATIVE AIDE Pager [phone] documented in this encounter Procedure Notes * Scout Nelson MD - 01/23/2021 2:41 PM CDT Immediate Post Procedure Note Date: 01/23/2021 Attending Physician: Scout Nelson MD Procedure(s): paracentesis Indications: ascites Findings: Cloudy yellow fluid Anesthesia: Local Sedation/Medication Plan: Lidocaine Time out performed: Consent obtained, correct patient verified, correct procedur e verified, correct site verified, patient marked as necessary. Estimated Blood Loss: None/Negligible Specimen(s) Removed/Disposition: Yes, sent to pathology Complications: None Comments: Tolerated well Scout Nelson MD documented in this encounter Miscellaneous Notes * Patient Instructions - Summer Bragg RN - 01/23/2021 1:55 PM CDT Images from the original note [...] to the procedu re performed at the [place] Location, call [phone] Friday-Friday from 7 -5p. After-hours and weekends, please call [phone] and ask [facility] Drill Punch Operator on-call. You or your caregiver should call [phone] for any severe symptoms such as excessive bleeding, severe dizziness, trouble breathing or loss of consciousness. documented in this encounter Plan of Treatment Care Team Description Date Type Specialty Carlos Longo MD [address] [facility] [id number] [place] [address] [place] [address], [address] [place] [phone] 03/22/2021 Hospital Radiology [place] [address], [address] [place] [phone] Nonrheumatic tricuspid valve regurgitati on 03/27/2021 Hospital Cardiology [place] Almaraz [place] [address], [address] [place] [phone] CATHETERIZATION RIGHT HEART 03/27/2021 Surgery Cardiology Date/Time Name Priority Associated Diagnose s 03/27/2021 9:05 AM DE ALCHOLIZER CATHETERIZATION RIGHT HEART Nonrheumatic tricuspid valve regurgitation documented as of this encounter Goals Goal Patient Associated Recent Progress Patient-Stat Aut hor Goal Type Problems ed? Improve [facility] On track (10/23/2020 Yes Sheldon, 1:06 PM CDT) CHRYSTAL Singh [facility] On track (12/25/2020 Yes Sheldon, 2:41 PM CDT) CHRYSTAL Signh Note: "To get better and stronger." documented as of this encounter Procedures Comments Procedure Name Priority Date/Time Associated Diag nosis IR PARACENTESIS Routine 01/23/2021 Chronic heart failure THERAPEUTIC 3:18 PM CDT with preserved ejec tion fraction (HCC) RVF (right ventricular failure) (HCC) Other cirrhosis of liver (HCC) HC BASIC METABOLIC PANEL Routine 01/23/2021 Stage 3b chronic kidney 2:23 PM CDT disease (HCC) documented in this encounter Results * IR PARACENTESIS THERAPEUTIC (01/23/2021 3:18 PM [...] the drugs utilized were: subcutaneous Lidocaine 2% LEASE ATTENDANT: Scout Nelson M.D. TECHNIQUE: Transverse real time images were obtained through the abdomen. The risks and benefits of this procedure were discussed and informed written consent was obtained prior to performing the procedure. The abdomen was then prepped and draped in usual sterile fashion. Limited ultrasound of the abdomen was performed. Under ultrasound guidance, a 5 O[place]i centesis needle was advanced into the peritoneal [...] the drugs utilized were: subcutaneous Lidocaine 2% LEASE ATTENDANT: Scout Nelson M.D. TECHNIQUE: Transverse real time images were obtained through the abdomen. The risks and benefits of this procedure were discussed and informed written consent was obtained prior to performing the procedure. The abdomen was then prepped and draped in usual sterile fashion. Limited ultrasound of the abdomen was performed. Under ultrasound guidance, a 5 [place]i centesis needle was advanced into the peritoneal [...] shane Number [facility] RESULTS * (ABNORMAL) BASIC METABOLIC PANEL (01/23/2021 2:23 [...] (L) >60 mL/min [facility] Comment: [place] The eGFR is not validated f or use in drug dosing adjustments. Continue to use estimated creatinine clearance per dosing reference text. Please contact the Clinical Pharmacist for questions. eGFR 59 (L) >60 mL/min [facility] [place] Comment: The eGFR is not validated for use in drug dosing adjustments. Continue to use estimated creatinine clearance per dosing reference text. Please contact the Clinical Pharmacist for questions. Specimen Blood Performing Organization Address City/State/ZIP Code P shane Number [facility] [address] [place] [address] documented in this encounter Visit Diagnoses Diagnosis Chronic heart failure with preserved ej ection fraction (HCC) RVF (right ventricular failure) (HCC) Congestive heart failure, unspecified Other cirrhosis of liver (HCC) Stage 3b chronic kidney disease (HCC) Nonrheumatic tricuspid valve regurgitat ion Tricuspid valve disorders, specified as nonrheumatic documented in this encounter Administered Medications Action Date Dose Rate Site Medication Order MAR Action 01/23/2021 3:04 PM CDT 12.5 g albumin 25% injection Given - New INTRA-PROCEDURE MED(CONT), Starting on Bag 01/23/21 at 1443, Until 01/23/21 at 1504 12.5 g Given - New Bag 01/23/2021 2:51 PM CDT 12.5 g Given - New Bag 01/23/2021 2:45 PM CDT 12.5 g Given - New Bag 01/23/2021 2:43 PM CDT documented in this encounter Active and Recently Administered Medications Times are shown in CDT. 01/22/2021 01/23/2021 Medication Order 01/21/2021 1443 (Given - New Bag - Provider: Alondra kwon RN)1445 (Given - New Bag - Provider: Alondra Augustin RN)1451 (Given - New Bag - Provider: Alondra Augustin RN)1504 (Given - New Bag - Provider: Alondra Augustin RN)1537 (Infusion Stopped - Provider: Summer Bragg RN - Comment: 50g total infused) albumin 25% injection (COMPLETED) INTRA-PROCEDURE MED(CONT), Starting on 01/23/21 at 1443, Until 01/23/21 at 1504 documented in this encounter Additional Health Concerns Noted Time Assessment 01/23/2021 2:20 PM CDT A fall risk assessment has been complet ed for the patient 12/07/2020 3:18 PM CDT PHQ-2 Depression Total Score: 2 documented as of this encounter Care Teams Start Date End Date Detective And Intelligence Analyst Relationship Specialty 05/15/20 Garfield Gray MD PCP - [address] Medicine [place], [place] [phone] 06/13/20 Riley Hopson MD Consulting Cardiovascul [address] Physician ar Disease [address] [place] [address] 12/20/20 Gino Pandya, ORTHOPEDIC RN-LEGISLATIVE AIDE Nurse Nurse [address] [place] [address] [phone] 01/19/21 Teri Brandon Continuum of Care Case Management documented as of this encounter
[2021-03-11] MEDS ORDERED: fentaNYL INJ 100 MCG/2 ML AMP IM STA (12:28)
--- NOTE | 2021-03-11 13:27 | Diagnostic Imaging Report ---
INDICATION: Fall with left hip pain. COMPARISON: None. DISCUSSION: AP view of the pelvis and two views of the left hip were obtained. No significant degenerative disease. Coil mass is noted within the left lower abdomen. No fracture or dislocation. Alignment is anatomic. Soft tissues are unremarkable. IMPRESSION: 1. Negative pelvis and left hip. Dictated by: Dictated on workstation # [id number]
--- NOTE | 2021-03-11 13:29 | Diagnostic Imaging Report ---
INDICATION: Fall with left hip pain. COMPARISON: None. DISCUSSION: Four views of left femur were obtained. Degenerative disease and chondrocalcinosis noted within the left knee. No fracture or dislocation. Vascular coil mass noted within the left lower quadrant. Soft tissues are unremarkable. IMPRESSION: 1. Negative left femur. Dictated by: Dictated on workstation # [id number]
--- NOTE | 2021-03-11 13:35 | ED Lower Extremity ---
General Chief Complaint: Lower Extremity Stated Complaint: LT LEG PAIN Nursing Triage Note: PT TO ROOM [facility] WITH C/O LEFT INNER THIGH AND LEFT BUTTOCKS PAIN. PT REPORTS SHE "DONE THE SPLITS LAST NIGHT" AND NOW HAS PAIN. Source: patient, EMS History of Present Illness Date Seen by Provider: Mar 11, 2021 Time Seen by Provider: 12:12 Initial Comments 61-year-old female presenting with EMS after having a fall on 03/10. She was trying to carry something and had fallen as she has very unsteady feet and difficulty trying to carry anything and balance herself while she is walking. She had fallen and landed behind her couch. She hit her left leg on a 2 x 4 and was having a lot of pain. She was able to get up with assistance and make it to bed. She refused to come to the emergency department last night and be evaluated. She was still having a lot of pain today so when she woke up she finally allowed family to call EMS to have her transported to the emergency department. She is complaining of pain primarily on the left hip and posterior thigh. It is worse when she moves her leg. She has no numbness or tingling in the leg. She has a small bruise to her left chest but denies any chest wall pain or difficulty breathing. She denies hitting her head or losing consciousness. She has not taken anything for pain Onset: yesterday Severity: severe Pain/Injury Location: left hip, left thigh Method of Injury: fell Modifying Factors: Worse With Movement Allergies and Home Medications Allergies Coded Allergies: No Known Drug Allergies (Unverified , 09/09/20) Patient Home Medication List Home Medication List Reviewed: Yes Baclofen (Baclofen) 10 Mg Tablet, 10 MG PO BID PRN for MUSCLE SPASMS Prescribed by: BHARGAV BLOCK on 03/11/21 1406 Cephalexin (Cephalexin) 500 Mg Tablet, 500 MG PO TID Prescribed by: WADE JOHNSON on 12/13/20 8928 Review of Systems Constitutional: No chills, No fever EENTM: no symptoms reported Respiratory: no symptoms reported Cardiovascular: no symptoms reported Gastrointestinal: no symptoms reported Genitourinary: no symptoms reported Musculoskeletal: see HPI Skin: see HPI Psychiatric/Neurological: Denies Numbness, Denies Paresthesia Past Udeecjs-Nukdkd-Uvffdz Hx Patient Social History Tobacco Use?: No Smoking Status: Never a Smoker Smokeless Tobacco Frequency: Never a User Use of E-Cig and/or Vaping dev: No Use of E-Cig and/or Vaping Sergey: Never a User Substance use?: No Alcohol Use?: No Pt feels they are or have been: No Immunizations Up To Date First/Initial COVID19 Vaccinat: 05/2020 Second COVID19 Vaccination Yariel: 05/2020 Seasonal Allergies Seasonal Allergies: No Past Medical History Surgery/Hospitalization HX: TITANIUM VALVE Surgeries: Yes (Lymphnode removal) Abdominal, Cardiac, Hysterectomy, Open Heart Surgery, Valve Replacement Respiratory: No Cardiac: Yes Coronary Artery Disease, Valvular Heart Disease Neurological: No 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 oz. kg; 21.00 BMI Method: General Appearance: no apparent distress, other (Patient appears chronically ill.) Cardiovascular: normal peripheral pulses Hips: left hip limited range of motion (Decreased range of motion due to pain from muscle spasms in her posterior left leg and thigh), left hip pain, left hip soft tissue tenderness Legs: left leg pain, left leg soft tissue tenderness Neurologic/Tendon: normal sensation, normal motor functions Neurologic/Psychiatric: alert, oriented x 3 Skin: warm/dry, ecchymosis (Small bruise to the left lateral chest wall. No crepitus or step-off) Progress/Results/Core Measures Results/Orders My Orders Orders - BHARGAV BLOCK MD Fentanyl Inj (Sublimaze Injection) (03/11/21 12:28) Pelvis With Left Hip 2-3 View (03/11/21 12:28) Femur 2 View Left (03/11/21 12:28) Vital Signs/I&O 03/11/21 03/11/21 13:04 14:09 Temp 35.7 Pulse 118 67 Resp 19 16 B/P (MAP) 102/70 (81) 119/64 Pulse Ox 98 O2 Delivery Room Air Room Air Blood Pressure Mean: 81 Progress Progress Note #1: Progress Note Ordered a small dose of fentanyl 25 mcg IM to try and help with her pain. X- rays of the pelvis with left hip as well as left femur to evaluate for any fractures or dislocation. Progress Note #2: Progress Note X-rays did not demonstrate any acute fracture or dislocation. The pelvis, hip, femur all appeared stable and intact. Patient had some improvement with a shot for her pain. Will prescribe a low-dose muscle relaxer to try and help improve muscle spasms and pain in her thigh. Since she does have a history of liver disease will defer any management and narcotic down in addition to the muscle relaxer. Counseled to follow-up through with Dr. Gray. She may need to get additional home health assistance or be set up with a wheelchair or additional help with her mobility Diagnostic Imaging Diagonstic Imaging: Xray Plain Films/CT/US/NM/MRI: pelvis, hip Comments [facility] [place], [place] NAME: DANIELLE RODGERS [facility] REC#: [id number] PT STATUS: DEP ER : 1960 PHYSICIAN: BHARGAV BLOCK MD ADMIT DATE: 03/11/21/ER FS Signed Date of Exam:03/11/21 PELVIS WITH LEFT HIP 2-3 VIEW INDICATION: Fall with left hip pain. COMPARISON: None. DISCUSSION: AP view of the pelvis and two views of the left hip were obtained. No significant degenerative disease. Coil mass is noted within the left lower abdomen. No fracture or dislocation. Alignment is anatomic. Soft tissues are unremarkable. IMPRESSION: 1. Negative pelvis and left hip. Dictated by: Dictated on workstation # [id number] Dict: 03/11/21 1303 Trans: 03/11/21 1538 AS6 [id number] Interpreted by: DUTCH AU MD Electronically signed by: DUTCH AU MD 03/11/21 1538 Reviewed: Reviewed by Me Diagonstic Imaging: Xray Plain Films/CT/US/NM/MRI: femur Comments [facility] [place], [place] NAME: DANIELLE RODGERS [facility] REC#: [id number] PT STATUS: DEP ER : 1960 PHYSICIAN: BHARGAV BLOCK MD ADMIT DATE: 03/11/21/ER FS Signed Date of Exam:03/11/21 FEMUR 2 VIEW LEFT INDICATION: Fall with left hip pain. COMPARISON: None. DISCUSSION: Four views of left femur were obtained. Degenerative disease and chondrocalcinosis noted within the left knee. No fracture or dislocation. Vascular coil mass noted within the left lower quadrant. Soft tissues are unremarkable. IMPRESSION: 1. Negative left femur. Dictated by: Dictated on workstation # [id number] Dict: 03/11/21 1304 Trans: 03/11/21 1538 AS6 [id number] Interpreted by: DUTCH AU MD Electronically signed by: DUTCH AU MD 03/11/21 1538 Reviewed: Reviewed by Me Departure Impression Primary Impression: Contusion of left thigh, initial encounter Additional Impressions: Fall at home Qualified Codes: W19.XXXA - Unspecified fall, initial encounter; Y92.009 - Unspecified place in unspecified non-institutional (private) residence as the place of occurrence of the external cause Muscle spasm of left lower extremity Disposition: 01 HOME, SELF-CARE Condition: Stable Departure-Patient Inst. Decision time for Depature: 14:04 Referrals: DULCE MARIA GRAY MD (PCP/Family) Primary Care Physician Patient Instructions: Preventing Falls ED, Muscle Spasm ED, Minor Contusion ED, Using Cold for Pain Add. Discharge Instructions: There were no signs of fracture or broken bones on the imaging. Use the muscle relaxer to help with spasms and pain. Use ice 15 to 20 minutes every 2-3 hours as needed for pain and inflammation in the thigh and leg. Follow up with Dr. Gray for continued pain and concerns. He may need to order additional home health for you All discharge instructions reviewed with patient and/or family. Voiced understanding. Scripts Baclofen (Baclofen) 10 Mg Tablet 10 MG PO BID PRN for MUSCLE SPASMS for 10 Days, #20 TAB 0 Refills Prov: BHARGAV BLOCK MD 03/11/21 BHARGAV BLOCK MD Mar 11, 2021 13:35
[2021-03-11] MEDS ORDERED: BACL10TA PO (14:06)
[2021-03-11 14:09] VITALS: BP 119/64
== END 2021-03-11 14:09 | disposition home or self-care (01) ==
LOC: EDUNIT# 12:11 → ER FS 12:12
DX: S70.12XA Contusion of left thigh, initial encounter (principal); S20.212A Contusion of left front wall of thorax, initial encounter; M62.838 Other muscle spasm; W22.8XXA Striking against or struck by other objects, initial encounter; Y92.009 Unspecified place in unspecified non-institutional (private) residence as the place of occurrence of the external cause
CPT/HCPCS: 73502; 73552

== ENCOUNTER 2021-03-14 10:36 | Emergency (ER) | payer MEDICARE, MEDICAID ==
[~2021-03-14] VITALS: Ht 157.5 cm; Wt 52.6 kg
[~2021-03-14 10:36] MED LIST changes: +BACL10TA PO
--- OUTSIDE RECORDS SUMMARY | 2021-03-14 10:43 | XMS REPORT | Encounter Summary ---
Author Author [facility] Organization [facility] Address Unknown Phone Unavailable Care Team Providers Care Valve Inspector Name Role Phone Self, Garfield OLVERA PCP Riley Hopson MD [phone] Gino Pandya APRN-CELLAR PUMPER [phone] Teri Brandon [phone] Unavailable Reason for Visit * Reason Comments Anticoagulation INR 2.3 Encounter Details Care Team Description Date Type Department Helen Waggoner RN Anticoagulation (INR 2.3) 03/12/2021 Anticoagulation Cardiology: [facility] [address] [place] [address] 1, [address] [place] [address] Social History Date Tobacco Use Types Packs/Day Years Used Never Smoker Smokeless Tobacco: Never Used Comments Alcohol Use Standard Drinks/Week Not Currently 0 (1 standard drink = 0.6 o z pure alcohol) Sex Assigned at Date Recorded Female 06/01/2020 1:44 PM GENERAL WORKER Date Recorded COVID-19 Exposure Response 03/08/2021 7:56 AM GENERAL WORKER In the last month, have you [...] of this encounter Progress Notes * Helen Waggoner, RN - 03/12/2021 2:17 PM GENERAL WORKER INR 2.3. Called and discussed plan to continue to take Warfarin 4 mg and recheck INR on AM, 03/15. Pt verbalized understanding. No questions or concerns at this time. RAL WORKER documented in this encounter Plan of Treatment Care Team Description Date Type Specialty Nithya Madison, AUTOMOTIVE GLASS INSTALLER-CELLAR PUMPER [address] [place] [address] Larry Tatum MD [address] [place] [address] Jeanette Kingston, RT(R)(),LRT 03/19/2021 [facility] Encounter Carlos Longo MD [facility] [place] [address] [place] [address] [place] [phone] Canceled (Patient-Personal) 03/22/2021 [facility] [place] Almaraz [place] [id number] [place] [phone] Nonrheumatic tricuspid valve regurgitati on 03/27/2021 Hospital Cardiology [place] Almaraz [place] [id number] [place] [phone] CATHETERIZATION RIGHT HEART 03/27/2021 Surgery Cardiology Date/Time Name Priority Associated Diagnose s 03/27/2021 9:05 AM GENERAL WORKER CATHETERIZATION RIGHT HEART Nonrheumatic tricuspid valve regurgitation documented as of this encounter Goals Goal Patient Associated Recent Progress Patient-Stat Aut hor Goal Type Problems ed? Improve [facility] On track (10/23/2020 Yes Sheldon, 1:06 PM CDT) CHRYSTAL Singh [facility] On track (12/25/2020 Yes Sheldon, 2:41 PM CDT) CHRYSTAL Singh Note: "To get better and stronger." documented as of this encounter Visit Diagnoses Not on filedocumented in this encounter Additional Health Concerns Noted Time Assessment 03/08/2021 8:00 AM GENERAL WORKER A fall risk assessment has been complet ed for the patient 12/07/2020 3:18 PM CDT PHQ-2 Depression Total Score: 2 documented as of this encounter Care Teams Start Date End Date Valve Inspector Relationship Specialty 05/15/20 Garfield Gray MD PCP - [address] [address] 06/13/20 Riley Hopson MD Consulting Cardiovascul [address] Physician ar Disease [address] [place], [place] [id number] 12/20/20 Gino Pandya, AUTOMOTIVE GLASS INSTALLER-CELLAR PUMPER Nurse Nurse [address] [place] [phone] 01/19/21 Teri Brandon Continuum of Care Case Management documented as of this encounter
--- OUTSIDE RECORDS SUMMARY | 2021-03-14 10:43 | XMS REPORT | Clinical Summary ---
Author Author [facility] Organization [facility] Address Unknown Phone Unavailable Care Team Providers Care Supervisor Of Instruction Name Role Phone Self, Garfield OLVERA PCP Riley Hopson MD [phone] Gino Pandya US ADMINISTRATIVE LAW JUDGE-BOWLING BALL MOLDER [phone] Teri Brandon [phone] Unavailable Source Comments Some departments are not documenting in the electronic medical record. If you d o not see the information that you expected, contact Release of Information in [facility] Information Management department at [phone] for further assistan ce in locating additional records.[facility] Allergies No known active allergies Medications End [...] Admissions: 6 within the past 12 months Dresser Tender of Utilization: Clinical: Disease Progression/Chronic Symptoms Common [...] clinics at symptom onset Community Support: Laura [phone] (also offers hospice services); DPOA (patient's sons): Rosales Rodgers ([phone]), Blair Chambers ([phone]) Providers: PCP: (external) Gabriel Gray ([phone]); Palliative: Gino Pandya ([phone]); CVM: Basilia Gaitan ([phone]); Transplant: Jeanette Garcia ([phone]); HF: Junaid Longo ([phone]); Urology: Fernie Abreu ([phone]) Disposition on last DC: 2021 home with [facility] (SN, PT, OT), on cardiac diet [...] with 9 hours, which indicates active bleeding. Patigabriela t received emergent mesenteric angiogram with coiling [...] Encounters Care Team Description Date Type Specialty Gino Pandya APRN-BOWLING BALL MOLDER Scheduling 03/13/2021 Telephone Cardiology Carlos Longo MD 03/12/2021 Hospital Radiology Encounter Sherin Mata BSN Chronic heart failure with preserved eje ction fraction (HCC) (Primary Dx); History of endocarditis; Non-ischemic cardiomyopathy (HCC); Other cirrhosis of liver (HCC) 03/12/2021 Orders Only Cardiology Helen Waggoner RN Anticoagulation (INR 2.3) 03/12/2021 Anticoagulation Cardiology Rufino Springer MA Labs Only (pt inr) 03/12/2021 Documentation Cardiology Helen Waggoner, CHRYSTAL Records Request ([place] [facility] ramírez BurgerBliss) 03/12/2021 Documentation Cardiology Karsten Griffiths MD Baze, Amy, RT(R)(),LRT Alondra [...] ev aluation) 02/22/2021 Patient Profile Cardiology Fernie Camargo, BOILER MECHANIC Medication Refill 02/21/2021 Refill Cardiology Fernie Camargo, BOILER MECHANIC 02/20/2021 Telephone Cardiology Carlos Longo MD Heart Failure (6 month follow up); Follo w Up 02/19/2021 Office Visit Cardiology Telehealth Scout Nelson MD Johnson, Monica, Jeanette [place], RT(R)(),LRT Chronic heart failure with preserved eje ction fraction (HCC) 02/19/2021 Hospital Radiology Encounter Josi Purvis BSN Anticoagulation (INR 1.4) 02/19/2021 Anticoagulation Cardiology Fernie Camargo, BOILER MECHANIC Tachycardia 02/19/2021 Telephone Cardiology 02/19/2021 Travel Blair [...] Anticoagulation (INR 1.5) 02/09/2021 Anticoagulation Cardiology Josi Purvis BSN Paroxysmal atrial fibrillation (HCC); Chronic heart failure with preserved ejection fraction (HCC) 02/09/2021 Orders Only Cardiology Fernie Camargo, BOILER MECHANIC Lab Results 02/09/2021 Documentation Cardiology Basilia Gaitan, US ADMINISTRATIVE LAW JUDGE-BOWLING BALL MOLDER Jose Jovel MD Clegg, Rachel, RT(R)(),LRT Canceled (Patient-Rescheduled) 02/06/2021 Hospital Radiology Encounter Nithya Madison, US ADMINISTRATIVE LAW JUDGE-BOWLING BALL MOLDER Heart Failure; Follow Up 02/06/2021 Office Visit Cardiology Jolie Steel BSN Other (attempting to schedule weekly par acentesis) 02/06/2021 Telephone Cardiology Allison Marti MD Other (CT) 02/06/2021 Telephone Hepatology 02/06/2021 Travel Helen Waggoner RN Anticoagulation (2.0) 02/05/2021 Anticoagulation Cardiology [place], Beckie Labs Only (INR) 02/05/2021 Documentation Cardiology Carlos Longo MD Werner, Elizabeth, Arik [place], RT(R)(),LRT Giancarlo Meneses MD Chronic heart failure with preserved eje ction fraction (HCC) 02/02/2021 Hospital Radiology Encounter Josi Purvis BSN Abdomen Swelling 02/02/2021 Telephone Cardiology Josi Purvis BSN Anticoagulation (INR 1.1) 02/01/2021 Anticoagulation Cardiology Taisha Botello, CHRYSTAL Labs Only 02/01/2021 Documentation Cardiology Josi Purvis BSN Anticoagulation (INR 1.3) 01/29/2021 Anticoagulation Cardiology Jc, Beckie Labs Only (INR) 01/29/2021 Documentation Cardiology Josi [...] MA Labs Only 01/15/2021 Documentation Cardiology Susan Palomino, CHRYSTAL Anticoagulation (INR 1.2) 01/12/2021 Anticoagulation Cardiology Nithya Madison APRN-NP 01/11/2021 Hospital Lab Encounter Nithya Madison APRN-NP Post-hospital Follow Up 01/11/2021 Office Visit Cardiology 01/11/2021 Travel Susan Palomino RN Abdomen Swelling 01/10/2021 Telephone Cardiology Josi Purvis BSN Lab Results 01/08/2021 Telephone Cardiology Josi Purvis BSN Error 01/08/2021 Anticoagulation Cardiology Kailey Irizarry Anticoagulation (INR 1.2) 01/08/2021 Anticoagulation Cardiology Kathryn Barbosa MA Labs Only 01/08/2021 Documentation Cardiology Beckie Greene Labs Only (INR) 01/08/2021 Documentation Cardiology Mariely [...] 01/02/2021 Hospital - Encounter 2021 Basilia Gaitan APRN-BOWLING BALL MOLDER 01/02/2021 Hospital Lab Encounter Basilia Gaitan APRNADEN Follow Up 01/02/2021 Office Visit Cardiology Beckie Greene Labs Only (INR) 01/02/2021 Documentation Cardiology 01/02/2021 Blanche Caal, CHRYSTAL Other (Pt wanting Dr. Feliciano Atkinson's phone #) 01/01/2021 Telephone Cardiology Maggi Atkinson MD 12/30/2020 Hospital Radiology Encounter Fernie Abreu MD Gross hematuria (Primary Dx) 12/28/2020 Orders Only Urology Dangers, MD Lucero Nava Benjamin A, DO Becker, David W, MD Abebe, Abebe M, MD King, Theresa E, MD Acute on chronic diastolic (congestive) heart failure (HCC) 12/22/2020 Hospital - Encounter 12/30/2020 12/22/2020 Blanche Caal RN 12/22/2020 Telephone Cardiology Blanche Padilla RN Other (Digoxin dose change per provider 12/21/2020) 12/22/2020 Telephone Cardiology Jolie Steel BSN Anticoagulation (INR 3.4) 12/22/2020 Anticoagulation Cardiology Kathryn Barbosa MA Labs Only 12/22/2020 Documentation Cardiology Caitlin Sparks Resource Information 12/21/2020 Telephone Cardiology Josi Purvis BSN Lab Request (CBC 1 week) 12/21/2020 Telephone Cardiology Basilia Gaitan, Scout Clifford MD Cirrhosis of liver with ascites, unspeci [...] BSN Order Follow Up 12/20/2020 Documentation Cardiology Florian, Summer M, US ADMINISTRATIVE LAW JUDGE-BOWLING BALL MOLDER Other ascites (Primary Dx) 12/20/2020 Orders Only Radiology Sherin Mata BSN Anticoagulation (INR Goal change to 1.5- 2.0) 12/20/2020 Anticoagulation Cardiology 12/20/2020 Travel Susan Palomino, CHRYSTAL Anticoagulation (INR 4.7) 12/18/2020 Anticoagulation Cardiology Susan Palomino, CHRYSTAL Erroneous encounter-disregard 12/18/2020 Anticoagulation Cardiology Susan Palomino, clinical scientist Question About Anticoagulatio n Therapy 12/18/2020 Telephone Cardiology Arlene Rush RN Anticoagulation (INR 3.3 ) 12/14/2020 Anticoagulation Cardiology Jc, Beckie Labs Only (INR) 12/14/2020 Documentation Cardiology Susan Palomino, CHRYSTAL Records Request 12/14/2020 Documentation Cardiology Rosa Rojas, CHRYSTAL DME Order (Abdominal Binder) 12/13/2020 Telephone Cardiology from Last 3 Months Immunizations [...] ENDOSCOPY performed by Leonidas Hernández MD at [facility] COLONOSCOPY 06/06/2020 N/A COLONOSCOPY LAWSON GNOSTIC WITH SPECIMEN COLLECTION BY BRUSHING/ WASHING - FLEXIBLE performed by Bao Hernández MD at [facility] UPPER GASTROINTESTINAL 10/21/2020 N/A ESOPHAG OGASTRODUODENOSCOPY WITH SPECIMEN ENDOSCOPY - 10/22/2020 COLLECTION BY BRUSH ING/ WASHING performed by Cosmo Gomez MD at [facility] SIGMOIDOSCOPY 10/21/2020 N/A SIGMOIDOSCOPY W ITH CONTROL OF BLEEDING - FLEXIBLE - 10/22/2020 performed by Cosmo Gomez MD at [facility] SIGMOIDOSCOPY 10/21/2020 SIGMOIDOSCOPY WITH DIRECTED SUBMUCOSAL INJECTION - - 10/22/2020 FLEXIBLE performed by Cosmo Pastor MD at [facility] UPPER GASTROINTESTINAL 01/03/2021 N/A ESOPHAG OGASTRODUODENOSCOPY WITH CONTROL OF ENDOSCOPY BLEEDING - FLEXIBLE perform ed by Bao Hernández MD at [facility] Medical History Medical History Date [...] at Date Recorded Female 06/01/2020 1:44 PM PECAN PICKER Date Recorded COVID-19 Exposure Response 03/08/2021 7:56 AM PECAN PICKER In the last month, have you been in contact with No / Unsure someone who was confirmed or suspected to have Coronavirus / COVID-19? Last Filed Vital Signs Reading Time Taken Comments Vital Sign 103/57 03/08/2021 8:58 AM PECAN PICKER Blood Pressure 124 02/19/2021 10:30 AM PECAN PICKER Pulse 36.9 C (98.4 F) 03/08/2021 8:00 AM PECAN PICKER Temperature 18 12/07/2020 3:19 PM CDT Respiratory Rate 96% 03/08/2021 8:58 AM PECAN PICKER Oxygen Saturation - - Inhaled Oxygen Concentration 55.8 kg (123 lb) 03/05/2021 8:14 AM PECAN PICKER Weight 157.5 cm (5' 2") 03/05/2021 8:14 AM PECAN PICKER Height 22.5 03/05/2021 8:14 AM PECAN PICKER Body Mass Index Plan of Treatment Care Team Description Date Type Specialty Nithya Madison, US ADMINISTRATIVE LAW JUDGE-BOWLING BALL MOLDER [address] [place] [address] Larry Tatum MD [address] [address] Thee, Jeanette, RT(R)(),LRT 03/19/2021 Hospital Radiology Encounter Carlos Longo MD [address] [facility] [place] [address] [place] [address] [place] [phone] Canceled (Patient-Personal) 03/22/2021 [facility] Radiology [place] [address] [place] [phone] Nonrheumatic tricuspid valve regurgitati on 03/27/2021 Hospital Cardiology [place] [address] [place] [phone] CATHETERIZATION RIGHT HEART 03/27/2021 Surgery Cardiology Date/Time Name Priority Associated Diagnose s 03/27/2021 9:05 AM PECAN PICKER CATHETERIZATION RIGHT HEART Nonrheumatic tricuspid valve regurgitation [...] Sheldon, 1:06 PM CDT) CHRYSTAL Singh [facility] On track (12/25/2020 Yes Sheldon, 2:41 PM CDT) CHRYSTAL Singh Note: "To get better and stronger." Implants Device Identifier Shelf Expiration Date Model / Serial / L ot Implanted Type Area Manufactur [id number] 07/21/2021 [id number] / N/A / [id number] Device Closure 70cm 6fr Angio-Seal TERUMO Vip .035in Vascular - Sn/A MEDICAL Implanted: Qty: 1 on 11/06/2020 at [facility] [id number] 06/08/2025 [id number] / . / [id number] Coil Embolization 14cm 3mm .018in COOK Nomi 14.9 Loop Soft - S. MEDICAL Implanted: Qty: 1 on 11/06/2020 at [facility] [id number] 06/08/2025 [id number] / . / [id number] Coil Embolization 14cm 3mm .018in COOK Nomi 14.9 Loop Soft - S. MEDICAL Implanted: Qty: 1 on 11/06/2020 at [facility] [id number] 06/08/2025 [id number] / . / [id number] Coil Embolization 14cm 3mm .018in COOK Nomi 14.9 Loop Soft - S. MEDICAL Implanted: Qty: 1 on 11/06/2020 at [facility] [id number] 06/08/2025 [id number] / . / [id number] Coil Embolization 14cm 3mm .018in COOK Nomi 14.9 Loop Soft - S. MEDICAL Implanted: Qty: 1 on 11/06/2020 at [facility] [id number] 09/02/2028 [id number] / . / [id number] Coil Embolization 10cm .02in 4mm PENUMBRA Penumbra Coil 400 Vivian - S. [employer] Implanted: Qty: 1 on 11/06/2020 at [facility] [id number] 06/08/2025 [id number] / . / [id number] Coil Embolization 14cm 3mm .018in COOK Nomi 14.9 Loop Soft - S. MEDICAL Implanted: Qty: 1 on 11/06/2020 at [facility] [id number] 06/08/2025 [id number] / . / [id number] Coil Embolization 14cm 3mm .018in COOK Nomi 14.9 Loop Soft - S. MEDICAL Implanted: Qty: 1 on 11/06/2020 at [facility] [id number] 06/08/2025 [id number] / . / [id number] Coil Embolization 14cm 3mm .018in COOK Nomi 14.9 Loop Soft - S. MEDICAL Implanted: Qty: 1 on 11/06/2020 at [facility] [id number] 06/08/2025 [id number] / . / [id number] Coil Embolization 14cm 3mm .018in COOK Nomi 14.9 Loop Soft - S. MEDICAL Implanted: Qty: 1 on 11/06/2020 at [facility] [id number] 07/03/2028 [id number] / . / [id number] Coil Vivian Pod J 30cm - S. PENUMBRA Implanted: Qty: 1 on 11/06/2020 at [facility] [id number] 02/24/2027 [id number] / . / [id number] Coil Vivian Pod J 45cm - S. PENUMBRA Implanted: Qty: 1 on 11/06/2020 at [facility] [id number] 06/08/2025 [id number] / . / [id number] Coil Embolization 14cm 3mm .018in COOK Nomi 14.9 Loop Soft - S. MEDICAL Implanted: Qty: 1 on 11/06/2020 at [facility] Procedures Comments Procedure Name Priority Date/Time Associated Diag nosis PROTIME INR (PT) Routine 03/12/2021 Paroxysmal at rial fibrillation (HCC) IR PARACENTESIS Routine 03/08/2021 Chronic heart failure THERAPEUTIC 8:32 AM PECAN PICKER with preserved ejec tion fraction (HCC) RVF (right ventricular failure) (HCC) Other cirrhosis of liver (HCC) PROTIME INR (PT) Routine 03/07/2021 Chronic heart failure with preserved ejection fraction (HCC) IR PARACENTESIS Routine 03/05/2021 Chronic heart failure THERAPEUTIC 9:32 AM PECAN PICKER with preserved ejec tion fraction (HCC) RVF (right ventricular failure) (HCC) Other cirrhosis of liver (HCC) HC PT(INR) Routine 03/05/2021 Chronic heart f ailure 8:28 AM PECAN PICKER with preserved ejection fraction (HCC) IR PARACENTESIS Routine 03/02/2021 Chronic heart failure THERAPEUTIC 4:19 PM PECAN PICKER with preserved ejec tion fraction (HCC) RVF (right ventricular failure) (HCC) Other cirrhosis of liver (HCC) HC CBC W/ AUTOMATED DIFF Routine 03/02/2021 Chron ic heart failure 3:24 PM PECAN PICKER with preserved ejection fraction (HCC) Other cirrhosis of liver (HCC) HC COMPREHENSIVE Routine 03/02/2021 Chronic heart failure METABOLIC PANEL 3:24 PM PECAN PICKER with preserved ejec tion fraction (HCC) Other cirrhosis of liver (HCC) HOME INR Routine 02/27/2021 IR PARACENTESIS Routine 02/19/2021 Chronic heart failure THERAPEUTIC 9:50 AM PECAN PICKER with preserved ejec tion fraction (HCC) RVF (right ventricular failure) (HCC) Other cirrhosis of liver (HCC) HC PT(INR) Routine 02/19/2021 Paroxysmal atri al 8:19 AM PECAN PICKER fibrillation (HCC) IR PARACENTESIS Routine 02/12/2021 Chronic heart failure THERAPEUTIC 4:21 PM PECAN PICKER with preserved ejec tion fraction (HCC) RVF (right ventricular failure) (HCC) Other cirrhosis of liver (HCC) PROTIME INR (PT) Routine 02/12/2021 Paroxysmal at rial fibrillation (HCC) HOME INR Routine 02/09/2021 5:32 PM PECAN PICKER HOME INR Routine 02/09/2021 PROTIME INR (PT) Routine 02/05/2021 Chronic heart failure with preserved ejection fraction (HCC) IR PARACENTESIS Routine 02/02/2021 Chronic heart failure THERAPEUTIC 4:19 PM PECAN PICKER with preserved ejec tion fraction (HCC) RVF [...] (HCC) HC CBC,AUTOMATED Routine 01/11/2021 Acute on chronometer tester shantanu 4:11 PM CDT diastolic (congestive) heart [...] TROPONIN-I Routine 12/23/2020 9:49 AM CDT HC NON-CLUTCH OPERATOR/THIN PREP 12/23/2020 9:43 AM CDT HC COMPREHENSIVE [...] INR (PT) Routine 12/14/2020 Chronic antic oagulation from Last 3 Months Results * (ABNORMAL) PROTIME INR (PT) (03/12/2021) Only the most recent of 30 results within the time period is included. INR 2.3 (H) 1.7 - 2 [facility] Specimen Blood - Blood Narrative Performing Organization Address City/State/ZIP Code P shane Number [facility] [address] [place] [address] * IR PARACENTESIS THERAPEUTIC (03/08/2021 8:32 AM PECAN PICKER) Only the most recent of 7 results within the time period is included. Modality Anatomical Region Laterality Ultrasound Specimen Impressions [facility] RESULTS - 03/08/2021 11:35 AM PECAN PICKER IMPRESSION: Ultrasound guided paracentesis with removal of 1.9 liters of fluid. IKarsten M.D., the attending radiologist, was present for the procedure, personally reviewed the images, and formulated the interpretations and opinions expressed in this report. @TT Finalized by Karsten Griffiths M.D. on 03/08/2021 11:35 AM. Dictated by Karsten Griffiths M.D. on 03/08/2021 11:35 AM. Narrative [facility] RESULTS - 03/08/2021 11:35 AM PECAN PICKER Exam: Ultrasound-guided paracentesis. History: Ascites. Technique: After obtaining informed written consent the patient was placed supine on the procedure table. Using ultrasound guidance, an appropriate insertion site in the right lower quadrant was marked. The patient was prepped and draped in the usual sterile fashion. Lidocaine was used for local anesthesia. A Ope-O-Eptsugxa needle was inserted into the abdomen, with [...] Lidocaine was used for local anesthesia. A Lun-I-Gyssmrdz needle was inserted into the abdomen, with [...] (ABNORMAL) CBC AND DIFF (03/02/2021 3:24 PM PECAN PICKER) Only the most recent of 9 results [...] P shane Number [facility] [address] [place] [address] * (ABNORMAL) COMPREHENSIVE METABOLIC PANEL (03/02/2021 3:24 PM PECAN PICKER) Only the most recent of 14 results [...] (L) >60 mL/min [facility] Comment: [place] The eGFR is not validated f or use in drug dosing adjustments. Continue to use estimated creatinine clearance per dosing reference text. Please contact the Clinical Pharmacist for questions. eGFR 56 (L) >60 mL/min [facility] [place] Comment: The eGFR is not validated for use in drug dosing adjustments. Continue to use estimated creatinine clearance per dosing reference text. Please contact the Clinical Pharmacist for questions. Specimen Blood (substance) Performing Organization Address City/State/ZIP Code P shane Number [facility] [address] [place] [id number] * HOME INR (02/27/2021) Only the most [...] within the time period is included. Pathologist [facility] Sodium 131 [...] (L) >60 mL/min [facility] Comment: [place] The eGFR is not validated f or use in drug dosing adjustments. Continue to use estimated creatinine clearance per dosing reference text. Please contact the Clinical Pharmacist for questions. eGFR 59 (L) >60 mL/min [facility] [place] Comment: The eGFR is not validated for use in drug dosing adjustments. Continue to use estimated creatinine clearance per dosing reference text. Please contact the Clinical Pharmacist for questions. Specimen Blood Performing Organization Address City/State/ZIP Code P shane Number [facility] [address] [place] [phone] * (ABNORMAL) CBC (01/11/2021 4:11 PM CDT) [...] P shane Number [facility] [address] [place] [address] * MAGNESIUM (2021 5:09 AM CDT) Only the most recent of 3 results within the time period is included. Magnesium 2.1 1.6 - 2.6 mg/dL [facility] Specimen Blood Performing Organization Address City/[facility] Code P shane Number [facility] [address] [place] [address] * EGD REPORT (01/03/2021 9:40 AM CDT) Provation Patient Name: Khurram SPARKS OTHER Report Procedure Date: 01/03/2021 RESULTS 9:40 AM CSN: [id number] Date of : 1960 Gender: Female Attending Physician: Bao Hernández MD Procedure: Upper GI endoscopy Indications: Melena Providers: Bao Hernández MD (Doctor), Rach Orozco (Nurse), Omid Brooke Bender Machine Operator (Bender Machine Operator) Referring Physician: Aristeo Reveles Medications: Monitored [...] 1 second Procedure Code(s): --- Professional --- 94968, Esophagogastroduodenoscopy, flexible, transoral; diagnostic, including collection of specimen(s) by brushing or washing, when performed (separate procedure) Diagnosis Code(s): --- Professional --- K92.1, Melena (includes Hematochezia) K31.89, Other diseases of stomach and duodenum K76.6, Portal hypertension CPT copyright 2020 [place] [employer]. All rights reserved. The codes documented in this report are preliminary and upon hims coder review may be revised to meet [...] on 01/03/2021 9:04 AM. Performing Organization Address City/[facility] P shane Number RAD RESULTS * (ABNORMAL) POC GLUCOSE (01/02/2021 11:10 PM CDT) Glucose, POC 151 (H) 70 - 100 MG/DL [facility] Specimen Performing Organization Address [facility] P shane Number [facility] [address] [place] [address] * URINALYSIS, MICROSCOPIC (01/02/2021 7:30 PM CDT) WBCs,UA 2-10 0 - 2 /HPF [facility] RBCs,UA NONE 0 - 3 /HPF [facility] MucousUA TRACE [facility] Squamous 0-2 0 - 5 [facility] Epithelial Cells Specimen Urine specimen (specimen) - Urine Performing Organization Address [facility] P shane Number [facility] [address] [place] [address] * (ABNORMAL) URINALYSIS DIPSTICK (01/02/2021 7:30 PM CDT) Color,UA YELLOW [facility] Turbidity,UA CLEAR CLEAR-CLEAR [facility] Specific 1.012 1.003 - 1.035 [facility] Graham-Urine pH,UA 6.0 5.0 - 8.0 [facility] [...] P shane Number [facility] [address] [place] [address] * IR PARACENTESIS DIAGNOSTIC (01/02/2021 4:13 PM [...] the drugs utilized were: subcutaneous Lidocaine 2% DIVERSIFIED CROPS I FARMWORKER: Giancarlo Bacon M.D. TECHNIQUE: Larry Toribio M.D, the attending radiologist, was present [...] was performed. Under ultrasound guidance, a 5 Cambodian centesis needle was advanced into the peritoneal [...] the drugs utilized were: subcutaneous Lidocaine 2% DIVERSIFIED CROPS I FARMWORKER: Giancarlo Bacon M.D. TECHNIQUE: Larry Toribio M.D, the attending radiologist, was present [...] was performed. Under ultrasound guidance, a 5 Cambodian centesis needle was advanced into the peritoneal [...] on 01/02/2021 4:24 PM. Performing Organization Address [facility] P shane Number [facility] RAD RESULTS * IR ABDOMINAL DRAIN REMOVAL (01/02/2021 4:13 PM CDT) Modality Anatomical Region Laterality Ultrasound Specimen Narrative [facility] - 01/02/2021 4:15 PM CDT This IR procedure does not require a dictated result. Performing Organization Address [facility] P shane Number [facility] * PERITONEAL FLUID TOTAL PROTEIN (01/02/2021 4:00 PM CDT) Only the most recent of 3 results within the time period is included. Peritoneal 2.7 g/dL [facility] Fluid Total Comment: Protein Ascites fluid total prote in >1g/dL favors secondary bacterial peritonitis over spontaneous bacterial peritonitis Specimen Peritoneal Fluid Performing Organization Address [facility] P shane Number [facility] [address] [place] [address] * PERITONEAL FLUID GLUCOSE (01/02/2021 4:00 PM CDT) Peritoneal 96 70 - 100 mg/dL [facility] Fluid Glucose Comment: Ascites fluid glucose <50 mg/dL favors secondary bacterial peritonitis over spontaneous bacterial peritonitis Specimen Peritoneal Fluid Performing Organization Address [facility] P shane Number [facility] [address] [place] [address] * PERITONEAL FLUID ALBUMIN (01/02/2021 4:00 PM CDT) Only the most recent of 3 results within the time period is included. Peritoneal <1.5 g/dL [facility] Fluid Albumin Comment: Serum to ascites albumin gradient (SAAG) >1.1 g/d is seen in portal hypertension. SAAG <1.1 g/dL is seen in cancer and infections Specimen Peritoneal Fluid Performing Organization Address City/[facility]/ZIP Code P shane Number [facility] [address] [place] [address] * GRAM STAIN (01/02/2021 4:00 PM CDT) [...] (specimen) - Paracentesis Fluid Performing Organization Address [facility] Code P shane Number [facility] [address] [place] [address] * CULTURE-WOUND/TISSUE/FLUID(AEROBIC ONLY)W/SENSITIVITY (01/02/2021 4:00 PM CDT) [...] (specimen) - Paracentesis Fluid Performing Organization Address [facility]/ZIP Code P shane Number [facility] [address] [place] [address] * CULTURE-ANAEROBIC (01/02/2021 4:00 PM CDT) Only [...] (specimen) - Paracentesis Fluid Performing Organization Address [facility]/ZIP Code P shane Number [facility] [address] [place] [address] * CELL COUNT W/DIFF-FLUIDS (01/02/2021 4:00 PM [...] [facility] Fluid Fluid Source FLUID [facility] PERITONEAL FLUID Pathology HEMORRHAGIC FLUID [facility] Interpretation, Fluid Pathologist INTERPRETED BY [...] (specimen) - Peritoneal Fluid Performing Organization Address [facility] Code P shane Number [facility] [address] [place] [phone] * (ABNORMAL) IRON + BINDING CAPACITY + %SAT+ FERRITIN (01/02/2021 2:20 PM CDT) Iron 38 (L) 50 - 160 MCG/DL [facility] Iron 301 270 - 380 MCG/DL [facility] Binding-TIBC % Saturation 13 (L) 28 - 42 % [facility] Ferritin 1,540 (H) 10 - 200 NG/ML [facility] Specimen Performing Organization Address [facility] Code P shane Number [facility] [address] [place] [address] * TYPE & CROSSMATCH (01/02/2021 2:20 PM CDT) Units Ordered 0 [facility] Crossmatch 01/05/2021,2359 [facility] Expires Record Check FOUND [facility] ABO/RH(D) O POS [facility] Antibody Screen NEG [facility] Electronic YES [facility] Crossmatch Specimen Blood Performing Organization Address [facility]/ZIP Code P shane Number [facility] [address] [place] [address] * COVID-19 (SARS-COV-2) PCR (01/02/2021 2:00 PM CDT) Only the most recent of 2 results within the time period is included. COVID-19 FLOCKED SWAB MAIN LAB (SARS-CoV-2) NASOPHARYNGEAL PCR Source COVID-19 NOT DETECTED DN-NOT DETECTED [facility] (SARS-CoV-2) Comment: PCR This [...] performance characteristics have been verified by the [facility] clinical laboratory. Fact sheet for providers: https://www.fda.gov/media/1363 13/download Fact sheet for patients: https://www.fda.gov/media/1363 12/download Specimen Flocked Swab - Nasopharyngeal Performing Organization Address City/State/ZIP Code P shane Number MAIN LAB [address] [place] [address] * (ABNORMAL) POC BASIC METABOLIC PANEL (BMP) (01/02/2021 9:41 AM CDT) Sodium-POC 128 (L) 137 - 147 MMOL/L [...] Code P shane Number MAIN LAB [address] [place] [address] * DIGOXIN LEVEL (01/02/2021 8:58 AM CDT) Only the most recent of 4 results within the time period is included. Digoxin 0.5 0.5 - 1.0 NG/ML MAIN LAB Specimen Blood Performing Organization Address [facility] P shane Number MAIN LAB [address] [place] [address] * TELEMETRY STRIPS-SCAN (01/02/2021 12:00 AM CDT) [...] Laterality Computed Tomography Abdomen, Pelvis Specimen Impressions [facility] RAD RESULTS - 12/30/2020 3:14 PM [...] M.D. on 12/30/2020 3:14 PM. Dictated by [employer] Juan M.D. on 12/30/2020 2:54 PM. Narrative [...] shane Number KU RAD RESULTS * PHOSPHORUS [employer] (12/30/2020 5:06 AM CDT) Only the most recent of 8 results within the time period is included. Phosphorus 2.9 2.0 - 4.5 MG/DL [facility] Specimen Blood Performing Organization Address City/[facility]/ZIP Code P shane Number [facility] [address] [place] [phone] * MAGNESIUM CELLULAR THERAPEUTICS (12/30/2020 5:06 AM CDT) Only the most recent of 8 results within the time period is included. Magnesium 1.9 1.6 - 2.6 mg/dL [facility] Specimen Blood Performing Organization Address City/[facility]/ZIP Code P shane Number [facility] [address] [place] [phone] * PTT (APTT) (12/30/2020 5:06 AM CDT) Only the most recent of 8 results within the time period is included. APTT 35.4 24.0 - 36.5 SEC [facility] Specimen Blood Performing Organization Address City/[facility] Code P shane Number [facility] [address] [place] [phone] * US ABDOMEN LIMITED (12/25/2020 4:40 PM [...] specimen (specimen) - Blood Performing Organization Address City/[facility]/ZIP Code P shane Number [facility] [address] [place] [address] * TROPONIN-I (12/23/2020 11:32 PM CDT) Only the most recent of 5 results within the time period is included. Troponin-I 0.04 0.0 - 0.05 NG/ML [facility] Specimen Blood Performing Organization Address City/[facility]/ZIP Code P shane Number [facility] [address] [place] [address] * IR PARACENTESIS DIAGNOSTIC + THERAPEUTIC (12/23/2020 10:59 AM CDT) Modality Anatomical Region Laterality X-Ray Angiography Specimen Impressions [facility] RAD RESULTS - 12/23/2020 11:12 AM CDT Successful ultrasound guided paracentesis. 4300 mL of fluid was removed. I, Scout Nelson M.D, the attending radiologist, [...] CLINICAL INDICATION: Ascites, sepsis with unknown source DIVERSIFIED CROPS I FARMWORKER: Ruddy Blunt M.D. and Scout Nelson M.D. [...] was performed. Under ultrasound guidance, a 5 Cambodian centesis needle was advanced into the peritoneal [...] CLINICAL INDICATION: Ascites, sepsis with unknown source DIVERSIFIED CROPS I FARMWORKER: Ruddy Blunt M.D. and Scout Nelson M.D. [...] was performed. Under ultrasound guidance, a 5 Cambodian centesis needle was advanced into the peritoneal [...] into the fluid collection and a 10 Cambodian pigtail catheter was advanced into the fluid [...] into the fluid collection and a 10 Cambodian pigtail catheter was advanced into the fluid [...] AM. Performing Organization Address City/State/ZIP Code P [facility] Number RAD RESULTS * CYTOLOGY SPECIMEN LABEL (12/23/2020 10:28 AM CDT) Only the most recent of 2 results within the time period is included. Specimen Performing Organization Address City/State/ZIP Code P shane Number LAB RESULTS * NON-CLUTCH OPERATOR CYTOLOGY (BODY FLUIDS/TISSUE) (12/23/2020 9:43 AM CDT) Cytology [facility] [email or web address] Department of Pathology and Laboratory Medicine [address] [place] [address] Surgical Pathology Office: [phone] CYTOLOGY REPORT NAME: ZARIA RODGERS CYTOLOGY #: [id number] MR #: [id number] ALT ID #: BILLING #: [id number] LOCATION: DATE OF PROCEDURE: 12/23/2020 AGE: 60 SEX: [...] Edmond, , Resident Specimen Performing Organization Address [facility] P shane Number MAIN LAB [address] [place] [address] * (ABNORMAL) BNP (B-TYPE NATRIURETIC PEPTI) (12/23/2020 5:57 AM CDT) B Type 820.0 (H) 0 - 100 PG/ML MAIN LAB Natriuretic Peptide Specimen Blood Performing Organization Address [facility] P shane Number MAIN LAB [address] [place] [address] * VANCOMYCIN TIMED LEVEL (12/23/2020 5:56 AM CDT) Vancomycin 14.2 MCG/ML MAIN LAB Random Specimen Blood Performing Organization Address [facility] P shane Number [facility] [address] [place] [address] * UA REFLEX LABEL (12/23/2020 3:17 AM CDT) UA Reflex Criteria for reflex to culture [facility] Culture are WBC>10, Positive Nitrit e, and/or >=+1 leukocytes. If quantity is not sufficient, an addendum will follow. Specimen Urine Performing Organization Address City/[facility]/ZIP Code P shane Number [facility] [address] [place] [phone] * URINALYSIS MICROSCOPIC REFLEX TO CULTURE (12/23/2020 3:17 AM CDT) WBCs,UA 0-2 0 - 2 /HPF [facility] RBCs,UA 0-2 0 - 3 /HPF [facility] Comment,UA Criteria for reflex to culture [facility] are WBC>10, Positive Nitrite, and/or >=+1 leukocytes. If quantity is not sufficient, an addendum will follow. Squamous 0-2 0 - 5 [facility] Epithelial Cells Specimen Urine Performing Organization Address City/[facility] Code P shane Number [facility] [address] [place] [address] * (ABNORMAL) URINALYSIS DIPSTICK REFLEX TO CULTURE (12/23/2020 3:17 AM CDT) Color,UA YELLOW [facility] Turbidity,UA CLEAR CLEAR-CLEAR [facility] Specific 1.030 1.003 - 1.035 [facility] Graham-Urine pH,UA 6.0 5.0 - 8.0 K[facility] MAIN [...] negative result. Specimen Urine Performing Organization Address City/[facility] P shane Number [facility] [address] [place] [address] * UREA NITROGEN-URINE RANDOM (12/23/2020 3:17 AM CDT) Urea Nitrogen 473 MG/DL [facility] Specimen Urine specimen (specimen) - Urine Performing Organization Address [facility] P shane Number [facility] [address] [place] [address] * SODIUM-URINE RANDOM (12/23/2020 3:17 AM CDT) Sodium, Random <10 MMOL/L [facility] Specimen Urine specimen (specimen) - Urine Performing Organization [facility] P shane Number MAIN LAB [address] [place] [address] * OSMOLALITY-URINE RANDOM (12/23/2020 3:17 AM CDT) Osmolality-Urin 323 50 - 1,400 MOS/KG [facility] e Specimen Urine specimen (specimen) - Urine Performing Organization Address [facility] P shane Number MAIN LAB [address] [place] [address] * CREATININE-URINE RANDOM (12/23/2020 3:17 AM CDT) Creatinine, 54 MG/DL [facility] Random Specimen Urine specimen (specimen) - Urine Performing Organization [facility] P shane Number MAIN LAB [address] [place] [address] * LACTIC ACID (BG - RAPID LACTATE) (12/23/2020 1:10 AM CDT) Lactic Acid,BG 1.1 0.5 - 2.0 MMOL/L MAIN LAB Specimen Blood Performing Organization Address [facility] P shane Number MAIN LAB [address] [place] [address] * Critical Care (12/22/2020 9:29 PM CDT) [...] on 12/22/2020 9:08 PM. Performing Organization Address [facility] P shane Number [facility] RAD RESULTS * POC LACTATE (12/22/2020 8:32 PM CDT) LACTIC ACID POC 1.4 0.5 - 2.0 MMOL/L [facility] Specimen Performing Organization Address [facility] P shane Number [facility] [address] [place] [address] * CULTURE-BLOOD W/SENSITIVITY (12/22/2020 7:25 PM CDT) Only the most recent of 2 results within the time period is included. Battery Name BLOOD CULTURE [facility] Report Status FINAL 12/28/2020 [facility] Specimen BLOOD ARM, LEFT PERIPHERAL MAIN LA B Description DRAW Special NONE [facility] Requests Culture NO GROWTH 5 DAYS [facility] Specimen Blood specimen (specimen) - Arm, Left Performing Organization Address [facility] P shane Number [facility] [address] [place] [address] * (ABNORMAL) BNP POC ER (12/22/2020 6:58 PM CDT) BNP POC 1,587.0 (H) 0 - 100 PG/ML [facility] Specimen Performing Organization Address [facility] P shane Number [facility] [address] [place] [address] * (ABNORMAL) POC CREATININE, RAD (12/22/2020 6:55 PM CDT) Creatinine, POC 1.6 (H) 0.4 - 1.00 MG/DL [facility] Specimen Performing Organization Address [facility] P shane Number [facility] [address] [place] [address] * (ABNORMAL) POC TROPONIN (12/22/2020 6:53 PM CDT) Dvbbmhtz-N-CKI 0.10 (H) 0.00 - 0.05 NG/ML [facility] Specimen Performing Organization Address [facility] P shane Number [facility] [address] [place] [address] * PROCALCITONIN (12/22/2020 6:48 PM CDT) Procalcitonin 0.27 ng/mL MAIN LAB Comment: Suspected Lower Respiratory Tract Infection: >0.25 ng/mL-Increased likeihood bacterial infection Suspected Sepsis: >0.5 ng/mL-Increased likelihood sepsis >2.0 ng/mL-High risk of sepsis/septic shock Specimen Performing Organization Address [facility] P shane Number MAIN LAB [address] [place] [address] * (ABNORMAL) CORTISOL,RANDOM (12/22/2020 6:48 PM CDT) Cortisol, 28.3 (H) 5.0 - 20.0 MCG/DL MAIN LAB Random Specimen Performing Organization [facility] P shane Number MAIN LAB [address] [place] [address] * (ABNORMAL) OSMOLALITY (12/22/2020 6:48 PM CDT) Osmolality 266 (L) 280 - 307 MOSMOL/KG MAIN LA B Specimen Performing Organization Address [facility] P shane Number MAIN LAB [address] [place] [address] * LIPASE (12/22/2020 6:48 PM CDT) Lipase 15 11 - 82 U/L MAIN LAB Specimen Blood Performing Organization Address [facility] P shane Number MAIN LAB [address] [place] [address] * (ABNORMAL) AMMONIA (12/22/2020 6:48 PM CDT) Only the most recent of 2 results within the time period is included. Ammonia 64 (H) 9 - 35 MCMOL/L MAIN LAB Specimen Blood Performing Organization Address [facility] P shane Number MAIN LAB [address] [place], [place] [phone] * TELEMETRY STRIPS-SCAN (12/22/2020 12:00 AM CDT) [...] Plan / Dates Group Medicare MEDICARE MEDICARE [id number] 1999- [phone] [address] [place] [address] [place] [id number] 2020-P [phone] [address] MEDICAID resent [address] [place] [address] [facility]/HO [id number] 11/13/2020- [address] [facility] [address] Advance Directives Patient Client Account Representative Explanation Type Date Recorded Advance 10/26/2020 12:00 [...] Family? Care Teams Start Date End Date Supervisor Of Instruction Relationship Specialty 05/15/20 Garfield Gray MD PCP - General [address] [address] 06/13/20 Riley Hopson MD Consulting Cardiovascul [address] Physician ar Disease [address] [place] [id number] 12/20/20 Gino Pandya, US ADMINISTRATIVE LAW JUDGE-BOWLING BALL MOLDER Nurse Nurse [address] [address] 01/19/21 Teri Brandon Continuum of Care Case Management
--- OUTSIDE RECORDS SUMMARY | 2021-03-14 10:43 | XMS REPORT | Encounter Summary ---
Author Author [facility] Organization [facility] Address Unknown Phone Unavailable Care Team Providers Care Flight Nurse Name Role Phone Self, Garfield OLVERA PCP Riley Hopson MD [phone] Gino Pandya STUDY COORDINATOR-GAUGE AND WEIGH MACHINE ADJUSTER [phone] Teri Brandon [phone] Unavailable Reason for Visit * Reason Onset Date Comments Scheduling 03/13/2021 Encounter Details Care Team Description Date Type Department Gino Pandya, STUDY COORDINATOR-GAUGE AND WEIGH MACHINE ADJUSTER [address] [facility] [id number] [place], [place] [phone] Scheduling 03/13/2021 Telephone Cardiology: [facility] [address] [facility] [address] [place] [address] Social History Date Tobacco Use Types Packs/Day Years Used Never Smoker Smokeless Tobacco: Never Used Comments Alcohol Use Standard Drinks/Week Not Currently 0 (1 standard drink = 0.6 o z pure alcohol) Sex Assigned at Date Recorded Female 06/01/2020 1:44 PM AIRFIELD ENGINEER OFFICER Date Recorded COVID-19 Exposure Response 03/08/2021 7:56 AM AIRFIELD ENGINEER OFFICER In the last month, have you [...] encounter Miscellaneous Notes * Telephone Encounter - Ruchi Montez - 03/13/2021 1:21 PM AIRFIELD ENGINEER OFFICER ----- Message from HOSSEIN Chow sent at 03/13/2021 12:41 PM AIRFIELD ENGINEER OFFICER ---- - Regarding: offer telehealth visit Hi Dr. Qing Hopper would like me to see this patient in follow-up in review of goals of c are. Can you reach out and see if she would like to do this? (Looks like some pr ior appointments have been scheduled with me, but cancelled. Thank you! Gino IELD ENGINEER OFFICER documented in this encounter Plan of Treatment Care Team Description Date Type Specialty Nithya Madison APRN-NP [address] [place] [address] Larry Tatum MD [address] [facility] [address] [place] [address] Jeanette Kingston, RT(R)(),LRT 03/19/2021 Hospital Radiology Encounter Carlos Longo MD [address] [facility] [id number] [place] [address] [place] [address] [place] [phone] Canceled (Patient-Personal) 03/22/2021 Hospital Radiology [place] [id number] [place] [address] Nonrheumatic tricuspid valve regurgitati on 03/27/2021 Hospital Cardiology [place] [address] [place] [address] CATHETERIZATION RIGHT HEART 03/27/2021 Surgery Cardiology Date/Time Name Priority Associated Diagnose s 03/27/2021 9:05 AM AIRFIELD ENGINEER OFFICER CATHETERIZATION RIGHT HEART Nonrheumatic tricuspid valve regurgitation documented as of this encounter Goals Goal Patient Associated Recent Progress Patient-Stat Aut hor Goal Type Problems ed? Improve [facility] On track (10/23/2020 Yes Sheldon, 1:06 PM CDT) CHRYSTAL Singh [facility] On track (12/25/2020 Yes Sheldon, 2:41 PM CDT) CHRYSTAL Singh Note: "To get better and stronger." documented as of this encounter Visit Diagnoses Not on filedocumented in this encounter Additional Health Concerns Noted Time Assessment 03/08/2021 8:00 AM AIRFIELD ENGINEER OFFICER A fall risk assessment has been complet ed for the patient 12/07/2020 3:18 PM CDT PHQ-2 Depression Total Score: 2 documented as of this encounter Care Teams Start Date End Date Flight Nurse Relationship Specialty 05/15/20 Garfield Gray MD PCP - [address] Medicine [place], [place] [phone] 06/13/20 Riley Hopson MD Consulting Cardiovascul [address] Physician ar Disease [address] [place] [id number] 12/20/20 Gino Pandya, STUDY COORDINATOR-GAUGE AND WEIGH MACHINE ADJUSTER Nurse Nurse [address] [facility] [place] [address] 01/19/21 Teri Brandon Continuum of Care Case Management documented as of this encounter
--- OUTSIDE RECORDS SUMMARY | 2021-03-14 10:43 | XMS REPORT | Encounter Summary ---
Author Author [facility] Organization [facility] Address Unknown Phone Unavailable Care Team Providers Care Dental Assistant Name Role Phone Self, Garfield OLVERA PCP Riley Hopson MD [phone] Gino Pandya SWITCHBOARD CLERK-ASPHALT WORKER [phone] Teri Brandon [phone] Unavailable Reason for Visit * Radiology Services (Routine) - Authorized Diagnoses / Procedures Referred By Contact Referred To Conta ct Specialty Diagnoses Chronic heart failure with preserved ejection fraction (HCC) RVF (right ventricular failure) (HCC) Other cirrhosis of liver (HCC) Procedures IR PARACENTESIS THERAPEUTIC Carlos Longo MD [address] [address] [place] [place] [address] [place] [address] Radiology Referral ID Status Reason Start Date Expiration Visits Vi sits Date Requested Authorized [id number] Authorized 01/22/2021 01/22/2022 20 Encounter Details Care Team Description Date Type Department Carlos Longo MD [address] [phone] 03/12/2021 Hospital Interventional Radi ology: Encounter Maritza Oviedo [facility] [address] [place] [id number] Social History Date Tobacco Use Types Packs/Day Years Used Never Smoker Smokeless Tobacco: Never Used Comments Alcohol Use Standard Drinks/Week Not Currently 0 (1 standard drink = 0.6 o z pure alcohol) Sex Assigned at Date Recorded Female 06/01/2020 1:44 PM SITE PROJECT MANAGER Date Recorded COVID-19 Exposure Response 03/08/2021 7:56 AM SITE PROJECT MANAGER In the last month, have you been [...] Team Description Date Type Specialty Nithya [place], SWITCHBOARD CLERK-ASPHALT WORKER [address] [place] [address] Larry Tatum MD [address] [place] [address] Jeanette Kingston, RT(R)(),LRT 03/19/2021 Hospital Radiology Encounter Carlos Longo MD 4000 [facility] [address] [place] [address] [place] [address], [address] [place] [phone] Canceled (Patient-Personal) 03/22/2021 Hospital Radiology Encounter Jacob Almaraz MD [address], [address] [place] [address] Nonrheumatic tricuspid valve regurgitati on 03/27/2021 Hospital Cardiology Encounter Jacob Almaraz MD [address], [address] [place] [address] CATHETERIZATION RIGHT HEART 03/27/2021 Surgery Cardiology Order Schedule Name Type Priority Associated Diag noses Every 2 Weeks Auto for [address] arting 01/22/2021 until 01/22/2022, 7 completed IR PARACENTESIS Imaging Routine Chronic heart failure THERAPEUTIC with preserved ejection fraction (HCC) RVF (right ventricular failure) (HCC) Other cirrhosis of liver (HCC) Date/Time Name Priority Associated Diagnose s 03/27/2021 9:05 AM SITE PROJECT MANAGER CATHETERIZATION RIGHT HEART Nonrheumatic tricuspid valve regurgitation documented as of this encounter Goals Goal Patient Associated Recent Progress Patient-Stat Aut hor Goal Type Problems ed? Improve [facility] On track (10/23/2020 Yes Sheldon, 1:06 PM CDT) CHRYSTAL Singh [facility] On track (12/25/2020 Yes Sheldon, 2:41 PM CDT) CHRYSTAL Singh Note: "To get better and stronger." documented as of this encounter Results * IR PARACENTESIS THERAPEUTIC (03/08/2021 8:32 AM SITE PROJECT MANAGER) Modality Anatomical Region Laterality Ultrasound Specimen Impressions [facility] RESULTS - 03/08/2021 11:35 AM SITE PROJECT MANAGER IMPRESSION: Ultrasound guided paracentesis with removal of 1.9 liters of fluid. IKarsten M.D., the attending radiologist, was present for the procedure, personally reviewed the images, and formulated the interpretations and opinions expressed in this report. @TT Finalized by Karsten Griffiths M.D. on 03/08/2021 11:35 AM. Dictated by Karsten Griffiths M.D. on 03/08/2021 11:35 AM. Narrative [facility] RESULTS - 03/08/2021 11:35 AM SITE PROJECT MANAGER Exam: Ultrasound-guided paracentesis. History: Ascites. Technique: After obtaining informed written consent the patient was placed supine on the procedure table. Using ultrasound guidance, an appropriate insertion site in the right lower quadrant was marked. The patient was prepped and draped in the usual sterile fashion. Lidocaine was used for local anesthesia. A Dvv-K-Lthzzpmu needle was inserted into the abdomen, with [...] Lidocaine was used for local anesthesia. A Ktj-R-Xmayioxt needle was inserted into the abdomen, with [...] * IR PARACENTESIS THERAPEUTIC (03/05/2021 9:32 AM SITE PROJECT MANAGER) Modality Anatomical Region Laterality Ultrasound Specimen Impressions [facility] RESULTS - 03/05/2021 4:20 PM SITE PROJECT MANAGER IMPRESSION: Successful ultrasound guided paracentesis with removal of 3.6 liters of fluid. Ruddy Toribio M.D., the attending radiologist, was present for the procedure, personally reviewed the images, and formulated the interpretations and opinions expressed in this report. @TT Finalized by RUDDY CONNELLY on 03/05/2021 4:20 PM. Dictated by RUDDY CONNELLY on 03/05/2021 4:19 PM. Narrative [facility] RESULTS - 03/05/2021 4:20 PM SITE PROJECT MANAGER Reason for exam: Paracentesis, ascites. Operators: Ruddy [...] lidocaine was used for local anesthesia. A Qub-N-Qfskugov needle was inserted into the abdomen, with [...] lidocaine was used for local anesthesia. A Xjm-U-Mtmkhjwo needle was inserted into the abdomen, with [...] * IR PARACENTESIS THERAPEUTIC (03/02/2021 4:19 PM SITE PROJECT MANAGER) Modality Anatomical Region Laterality Ultrasound Specimen Impressions [facility] RESULTS - 03/02/2021 4:31 PM SITE PROJECT MANAGER IMPRESSION: Ultrasound guided paracentesis with removal of 6.2 liters of fluid. Karsten Toribio M.D., the attending radiologist, was present for the procedure, personally reviewed the images, and formulated the interpretations and opinions expressed in this report. @TT Finalized by Karsten Griffiths M.D. on 03/02/2021 4:31 PM. Dictated by Karsten Griffiths M.D. on 03/02/2021 4:31 PM. Narrative [facility] RESULTS - 03/02/2021 4:31 PM SITE PROJECT MANAGER Exam: Ultrasound-guided paracentesis. History: Ascites. Technique: After obtaining informed written consent the patient was placed supine on the procedure table. Using ultrasound guidance, an appropriate insertion site in the right lower quadrant was marked. The patient was prepped and draped in the usual sterile fashion. Lidocaine was used for local anesthesia. A Yxm-P-Oeqbbsrv needle was inserted into the abdomen, with [...] Lidocaine was used for local anesthesia. A Drx-X-Eqwdmcgu needle was inserted into the abdomen, with [...] * IR PARACENTESIS THERAPEUTIC (02/19/2021 9:50 AM SITE PROJECT MANAGER) Modality Anatomical Region Laterality Ultrasound Specimen Impressions [facility] RESULTS - 02/19/2021 10:05 AM SITE PROJECT MANAGER 1. Successful ultrasound guided parace ntesis. Finalized by Scout Nelson M.D. on 02/19/2021 10:05 AM. Dictated by Scout Nelson M.D. on 02/19/2021 10:05 AM. Narrative [facility] RESULTS - 02/19/2021 10:05 AM SITE PROJECT MANAGER Ultrasound-guided paracentesis CLINICAL INDICATION: Ascites MEDICATIONS: I was personally responsible for the administration of moderate sedation services during the procedure performed and I confirm requirements described in CPT section on moderate sedation were followed, including the use of an independent trained observer who had no other duties during the procedure. See nursing log for complete details; the drugs utilized were: subcutaneous Lidocaine 2% CANARY RAISER: Scout Nelson M.D. TECHNIQUE: Transverse real time images were obtained through the abdomen. The risks and benefits of this procedure were discussed and informed written consent was obtained prior to performing the procedure. The abdomen was then prepped and draped in usual sterile fashion. Limited ultrasound of the abdomen was performed. Under ultrasound guidance, a 5 Indian centesis needle was advanced into the peritoneal [...] the drugs utilized were: subcutaneous Lidocaine 2% CANARY RAISER: Scout Nelson M.D. TECHNIQUE: Transverse real time images were obtained through the abdomen. The risks and benefits of this procedure were discussed and informed written consent was obtained prior to performing the procedure. The abdomen was then prepped and draped in usual sterile fashion. Limited ultrasound of the abdomen was performed. Under ultrasound guidance, a 5 Indian centesis needle was advanced into the peritoneal [...] * IR PARACENTESIS THERAPEUTIC (02/12/2021 4:21 PM SITE PROJECT MANAGER) Modality Anatomical Region Laterality Ultrasound Specimen Impressions [facility] RESULTS - 02/12/2021 4:53 PM SITE PROJECT MANAGER 1. Successful ultrasound guided therap eutic paracentesis. Finalized by Blair Greene M.D. on 02/12/2021 4:53 PM. Dictated by Blair Greene M.D. on 02/12/2021 4:53 PM. Narrative [facility] RESULTS - 02/12/2021 4:53 PM SITE PROJECT MANAGER Ultrasound-guided paracentesis CLINICAL INDICATION: Symptomatic ascites MEDICATIONS: 10 mL subcutaneous Lidocaine 2% CANARY RAISER: Blair Greene M.D. TECHNIQUE: Transverse real time images were obtained through the abdomen. The risks and benefits of this procedure were discussed and informed written consent was obtained prior to performing the procedure. The abdomen was then prepped and draped in usual sterile fashion. Limited ultrasound of the abdomen was performed. Under ultrasound guidance, a 5 Indian centesis needle was advanced into the peritoneal [...] ascites MEDICATIONS: 10 mL subcutaneous Lidocaine 2% CANARY RAISER: Blair Greene M.D. TECHNIQUE: Transverse real time images were obtained through the abdomen. The risks and benefits of this procedure were discussed and informed written consent was obtained prior to performing the procedure. The abdomen was then prepped and draped in usual sterile fashion. Limited ultrasound of the abdomen was performed. Under ultrasound guidance, a 5 Indian centesis needle was advanced into the peritoneal [...] ultrasound. IMPRESSION 1. Successful ultrasound guided [facility] paracentesis. Finalized by Blair Greene M.D. on 02/12/2021 4:53 PM. Dictated by Blair Greene M.D. on 02/12/2021 4:53 PM. Performing Organization Address City/State/ZIP Code P shane Number [facility] RESULTS * IR PARACENTESIS THERAPEUTIC (02/02/2021 4:19 PM SITE PROJECT MANAGER) Modality Anatomical Region Laterality Ultrasound Specimen Impressions [facility] RESULTS - 02/03/2021 8:39 AM SITE PROJECT MANAGER Successful ultrasound guided paracentesis. 7000 mL of [...] [facility] RESULTS - 02/03/2021 8:39 AM SITE PROJECT MANAGER 7000 Ultrasound-guided paracentesis CLINICAL INDICATION: Ascites CANARY RAISER: Cyrus Cr M.D. and Giancarlo Meneses M.D. MEDICATIONS: Lidocaine TECHNIQUE: Transverse real time images were obtained through the abdomen. The risks and benefits of this procedure were discussed and informed written consent was obtained prior to performing the procedure. The abdomen was then prepped and draped in usual sterile fashion. Limited ultrasound of the abdomen was performed. Under ultrasound guidance, a 5 Indian centesis needle was advanced into the peritoneal [...] 02/03/2021 7000 Ultrasound-guided paracentesis CLINICAL INDICATION: Ascites CANARY RAISER: Cyrus Cr M.D. and Giancarlo Meneses M.D. MEDICATIONS: Lidocaine TECHNIQUE: Transverse real time images were obtained through the abdomen. The risks and benefits of this procedure were discussed and informed written consent was obtained prior to performing the procedure. The abdomen was then prepped and draped in usual sterile fashion. Limited ultrasound of the abdomen was performed. Under ultrasound guidance, a 5 Indian centesis needle was advanced into the peritoneal [...] the drugs utilized were: subcutaneous Lidocaine 2% CANARY RAISER: Scout Nelson M.D. TECHNIQUE: Transverse real time images were obtained through the abdomen. The risks and benefits of this procedure were discussed and informed written consent was obtained prior to performing the procedure. The abdomen was then prepped and draped in usual sterile fashion. Limited ultrasound of the abdomen was performed. Under ultrasound guidance, a 5 Indian centesis needle was advanced into the peritoneal [...] the drugs utilized were: subcutaneous Lidocaine 2% CANARY RAISER: Scout Nelson M.D. TECHNIQUE: Transverse real time images were obtained through the abdomen. The risks and benefits of this procedure were discussed and informed written consent was obtained prior to performing the procedure. The abdomen was then prepped and draped in usual sterile fashion. Limited ultrasound of the abdomen was performed. Under ultrasound guidance, a 5 Indian centesis needle was advanced into the peritoneal [...] RESULTS documented in this encounter Visit Diagnoses Not on filedocumented in this encounter Additional Health Concerns Noted Time Assessment 03/08/2021 8:00 AM SITE PROJECT MANAGER A fall risk assessment has been complet ed for the patient 12/07/2020 3:18 PM CDT PHQ-2 Depression Total Score: 2 documented as of this encounter Care Teams Start Date End Date Dental Assistant Relationship Specialty 05/15/20 Garfield Gray MD PCP - [address] [id number] 06/13/20 Riley Hopson MD Consulting Cardiovascul [address] Physician ar Disease [address] [place], [place] [address] 12/20/20 Gino Pandya APRN-ASPHALT WORKER Nurse Nurse [address] [address] 01/19/21 Teri Brandon Continuum of Care Case Management documented as of this encounter
--- OUTSIDE RECORDS SUMMARY | 2021-03-14 10:43 | XMS REPORT | Encounter Summary ---
Author Author [facility] Organization [facility] Address Unknown Phone Unavailable Care Team Providers Care Irrigation Service Technician Name Role Phone Self, Garfield OLVERA PCP Riley Hopson MD [phone] Gino Pandya HEAVY LIFT RIGGER-SURVEYING CREW RODMAN [phone] Teri Brandon [phone] Unavailable Reason for Visit * Reason Comments Labs Only pt inr Encounter Details Care Team Description Date Type Department Rufino Springer MA Labs Only (pt inr) 03/12/2021 Documentation Cardiology: [facility] [address] [place] [address] 1, [address] [place] [address] Social History Date Tobacco Use Types Packs/Day Years Used Never Smoker Smokeless Tobacco: Never Used Comments Alcohol Use Standard Drinks/Week Not Currently 0 (1 standard drink = 0.6 o z pure alcohol) Sex Assigned at Date Recorded Female 06/01/2020 1:44 PM CERTIFIED MASTER SAFECRACKER Date Recorded COVID-19 Exposure Response 03/08/2021 7:56 AM CERTIFIED MASTER SAFECRACKER In the last month, have you been [...] Team Description Date Type Specialty Nithya [place], HEAVY LIFT RIGGER-SURVEYING CREW RODMAN [address] [place], [place] [phone] Larry Tatum MD 4000 [facility] 2nd Flr [place], [place] [phone] Jeanette Kingston RT(R)(),LRT 03/19/2021 Hospital Radiology Encounter Carlos Longo MD 4000 [facility] [address] [place], [place] [phone] [place] [address], [address] [place] [phone] Canceled (Patient-Personal) 03/22/2021 Hospital Radiology Encounter Jacob Almaraz MD [address], [address] [place] [phone] Nonrheumatic tricuspid valve regurgitati on 03/27/2021 Hospital Cardiology Encounter Jacob Almaraz MD [address], [address] [place] [phone] CATHETERIZATION RIGHT HEART 03/27/2021 Surgery Cardiology Date/Time Name Priority Associated Diagnose s 03/27/2021 9:05 AM CERTIFIED MASTER SAFECRACKER CATHETERIZATION RIGHT HEART Nonrheumatic tricuspid valve regurgitation documented as of this encounter Goals Goal Patient Associated Recent Progress Patient-Stat Aut hor Goal Type Problems ed? [facility] On track (10/23/2020 Yes Sheldon, 1:06 PM CDT) CHRYSTAL Singh [facility] On track (12/25/2020 Yes Sheldon, 2:41 PM CDT) CHRYSTAL Singh Note: "To get better and stronger." documented as of this encounter Procedures Comments Procedure Name Priority Date/Time Associated Diag nosis PROTIME INR (PT) Routine 03/12/2021 Paroxysmal at rial fibrillation (HCC) documented in this encounter Results * (ABNORMAL) PROTIME INR (PT) (03/12/2021) INR 2.3 (H) 1.7 - 2 MAIN LAB Specimen Blood - Blood Narrative Performing Organization Address City/State/ZIP Code P shane Number MAIN LAB [address] [place] [address] documented in this encounter Visit Diagnoses Diagnosis Paroxysmal atrial fibrillation (HCC) Atrial fibrillation Nonrheumatic tricuspid valve regurgitat ion Tricuspid valve disorders, specified as nonrheumatic documented in this encounter Orders First Ordered Date Lab Orders Without Results Count Last Ordere d Date PROTIME INR (PT) 2 03/12/2021 documented in this encounter Additional Health Concerns Noted Time Assessment 03/08/2021 8:00 AM CERTIFIED MASTER SAFECRACKER A fall risk assessment has been complet ed for the patient 12/07/2020 3:18 PM CDT PHQ-2 Depression Total Score: 2 documented as of this encounter Care Teams Start Date End Date Irrigation Service Technician Relationship Specialty 05/15/20 Garfield Gray MD PCP - [address] [id number] 06/13/20 Riley Hopson MD Consulting Cardiovascul [address] Physician ar Disease [address] [place] [id number] 12/20/20 Gino Pandya, HEAVY LIFT RIGGER-SURVEYING CREW RODMAN Nurse Nurse 4000 [facility] [place] [address] 01/19/21 Teri [place] Continuum of Care Case Management documented as of this encounter
--- OUTSIDE RECORDS SUMMARY | 2021-03-14 10:43 | XMS REPORT | Encounter Summary ---
Author Author [facility] Organization [facility] Address Unknown Phone Unavailable Care Team Providers Care Foot Specialist Name Role Phone Self, Garfield OLVERA PCP Riley Hopson MD [phone] Gino Pandya APRN-SUPERVISOR LEAD REFINERY [phone] Teri [place] [phone] Unavailable Reason for Visit * Reason Comments Records Request [facility]ar Encounter Details Care Team Description Date Type Department Helen Waggoner, CHRYSTAL Records Request (Ashley [facility]) 03/12/2021 Documentation Cardiology: [facility] 4000 [facility] 1, [address] [place] [address] Social History Date Tobacco Use Types Packs/Day Years Used Never Smoker Smokeless Tobacco: Never Used Comments Alcohol Use Standard Drinks/Week Not Currently 0 (1 standard drink = 0.6 o z pure alcohol) Sex Assigned at Date Recorded Female 06/01/2020 1:44 PM INTERVENTIONAL CARDIOLOGIST Date Recorded COVID-19 Exposure Response 03/08/2021 7:56 AM INTERVENTIONAL CARDIOLOGIST In the last month, have you been [...] Progress Notes * Helen Waggoner RN - 03/12/2021 11:09 AM INTERVENTIONAL CARDIOLOGIST To: Ashley [facility] Karly in [place] RE: Zaria Paulson : 1960 Medical Records request for continuity of care. Zaria Paulson is scheduled for an appointment on 03/14/21 with Basilia Gaitan APRN in the Advanced Heart Failure clinic at [facility]. Please fax records to [phone] [facility] CVM - Advanced Heart Failure/Heart Transplant/VAD Clinic [address] [facility]. [address] [place] [address] Ph. [phone] Fax. [phone] Requested Records: o Recent Cardiac Testing (ECHO, Chest CT, Cardiac MRI, Cardiac PET, cath reports , Stress test, Thallium, Arterial/Venous studies, Pulmonary function testing, et c) o Cardiac Device (ICD/PPM) information (if applicable): last device check, impla ntation information, elevated work platform operator/serial number information o EKGs within the last 2 years o Recent Labs within the last 12mo o Hospitalization/ED records: all Discharge Summaries and any Cardiology H&Ps CONFIDENTIALITY NOTICE This facsimile transmission contains confidential information, some or all of wh ich may be protected health information as defined by the federal Health Insuran ce Portability & Accountability Act (HIPAA) Privacy Rule. The information contained in this facsimile is intended only for the exclusive and confidential use of the designated recipient named above. If you are not the designated recipient (or an employee or agent responsible for delivering this facsimile transmission to the designated recipient), you are hereby notified that any disclosure, dissemination, distribution or copying of this information is strictly prohibited and may be subject to legal restriction or sanction. If you have received this transmission in error, immediately notify the [facility] at [phone] to arrange for the return or destruction of the information and all copies. [address] [facility] [id number] | [place], [place] [address] | Phone | | [facility] RVENTIONAL CARDIOLOGIST documented in this encounter Plan of Treatment Care Team Description Date Type Specialty Nithya [place], KEG RAISER-SUPERVISOR LEAD REFINERY [address] [place], [place] [phone] Larry Tatum MD 4000 [facility] 2nd Flr [place], [place] [phone] Jeanette Kingston RT(R)(),LRT 03/19/2021 Hospital Radiology Encounter Carlos Longo MD 4000 [facility] [address] [place], [place] [phone] [place] [address], [address] [place] [phone] Canceled (Patient-Personal) 03/22/2021 [facility] Radiology [place]counter Jacob Almaraz [place] [address], [address] [place] [phone] Nonrheumatic tricuspid valve regurgitati on 03/27/2021 Hospital Cardiology Encounter Jacob Almaraz MD [address], [address] [place] [phone] CATHETERIZATION RIGHT HEART 03/27/2021 Surgery Cardiology Date/Time Name Priority Associated Diagnose s 03/27/2021 9:05 AM INTERVENTIONAL CARDIOLOGIST CATHETERIZATION RIGHT HEART Nonrheumatic tricuspid valve regurgitation documented as of this encounter Goals Goal Patient Associated Recent Progress Patient-Stat Aut hor Goal Type Problems ed? Improve [facility] On track (10/23/2020 Yes Sheldon, 1:06 PM CDT) CHRYSTAL Singh [facility] On track (12/25/2020 Yes Sheldon, 2:41 PM CDT) CHRYSTAL Singh Note: "To get better and stronger." documented as of this encounter Visit Diagnoses Not on filedocumented in this encounter Additional Health Concerns Noted Time Assessment 03/08/2021 8:00 AM INTERVENTIONAL CARDIOLOGIST A fall risk assessment has been complet ed for the patient 12/07/2020 3:18 PM CDT PHQ-2 Depression Total Score: 2 documented as of this encounter Care Teams Start Date End Date Foot Specialist Relationship Specialty 05/15/20 Garfield Gray MD PCP - [address] [address] 06/13/20 Riley Hopson MD Consulting Cardiovascul [address] Physician ar Disease [address] [place], [place] [address] 12/20/20 Gino Pandya, KEG RAISER-SUPERVISOR LEAD REFINERY Nurse Nurse [address] [phone] 01/19/21 Teri [place] Continuum of Care Case Management documented as of this encounter
--- OUTSIDE RECORDS SUMMARY | 2021-03-14 10:44 | XMS REPORT | Encounter Summary ---
Author Author [facility] Organization [facility] Address Unknown Phone Unavailable Care Team Providers Care Ice Bag Assembler Name Role Phone Self, Garfield OLVERA PCP Riley Hopson MD [phone] Gino Pandya APRN-LICENSED MORTICIAN [phone] Teri Brandon [phone] Unavailable Reason for Referral * Consult, Test & Treat (Routine) - Authorized Diagnoses / Procedures Referred By [facility] Severe tricuspid regurgitation Carlos Longo MD 4000 [facility] [place] [address] [facility] 4000 [facility] [place] [address] Cardiothoracic Surgery Referral ID Status Reason Start Date Expiration Visits Vi sits Date Requested Authorized [id number] Authorized Specialty Services 02/22/2021 02/22/2022 1 1 Required Comments TR/Triluminate eval. RETAIL Reason for Visit * Reason Comments Navigation Assessment TR/Triluminate evaluation Encounter Details Care Team Description Date Type Department Aarti Mars RN Navigation Assessment (TR/Triluminate ev aluation) 02/22/2021 Patient Profile Cardiology: [facility] 4000 [facility], [address] [place] [address] Social History Date Tobacco Use Types Packs/Day Years Used Never Smoker Smokeless Tobacco: Never Used Comments Alcohol Use Standard Drinks/Week Not Currently 0 (1 standard drink = 0.6 o z pure alcohol) Sex Assigned at Date Recorded Female 06/01/2020 1:44 PM CSR RETAIL Date Recorded COVID-19 Exposure Response 02/19/2021 7:52 AM CSR RETAIL In the last month, have you been [...] Team Description Date Type Specialty Nithya Madison, HEADER SET UP OPERATOR-LICENSED MORTICIAN [address] [place] [address] Larry Tatum MD [address] [place] [address] Jeanette Kingston, RT(R)(),LRT 03/19/2021 Hospital Radiology Encounter Carlos Longo MD [address] [facility] [address] [place] [address] [place] [address], [address] [place] [phone] Canceled (Patient-Personal) 03/22/2021 Hospital Radiology [place] [address], [address] [place] [phone] Nonrheumatic tricuspid valve regurgitati on 03/27/2021 Hospital Cardiology [place]az [place] [address], [address] [place] [phone] CATHETERIZATION RIGHT HEART 03/27/2021 Surgery Cardiology Date/Time Name Priority Associated Diagnose s 03/27/2021 9:05 AM CSR RETAIL CATHETERIZATION RIGHT HEART Nonrheumatic tricuspid valve regurgitation Order Schedule Name Type Priority Associated Diag noses Ordered: 02/22/2021 AMB REFERRAL TO Outpatient Routine Severe tricusp id CARDIOTHORACIC SURGEON Referral regurgitation documented as of this encounter Goals Goal Patient Associated Recent Progress Patient-Stat Aut hor Goal Type Problems ed? Improve [facility] On track (10/23/2020 Yes Sheldon, 1:06 PM CDT) CHRYSTAL Singh [facility] On track (12/25/2020 Yes Sheldon, 2:41 PM CDT) CHRYSTAL Singh Note: "To get better and stronger." documented as of this encounter Visit Diagnoses Diagnosis Severe tricuspid regurgitation - Primar y Diseases of tricuspid valve Nonrheumatic tricuspid valve regurgitat ion Tricuspid valve disorders, specified as nonrheumatic documented in this encounter Additional Health Concerns Noted Time Assessment 02/19/2021 8:13 AM CSR RETAIL A fall risk assessment has been complet ed for the patient 12/07/2020 3:18 PM CDT PHQ-2 Depression Total Score: 2 documented as of this encounter Care Teams Start Date End Date Ice Bag Assembler Relationship Specialty 05/15/20 Garfield Gray MD PCP - General [address] [place] [address] 06/13/20 Riley Hopson MD Consulting Cardiovascul [address] Physician ar Disease [address] [place] [address] 12/20/20 Gino Pandya, HEADER SET UP OPERATOR-LICENSED MORTICIAN Nurse Nurse [address] [place] [address] Practitioner [facility] , [place] [address] 01/19/21 Teri Brandon Continuum of Care Case Management documented as of this encounter
--- OUTSIDE RECORDS SUMMARY | 2021-03-14 10:44 | XMS REPORT | Encounter Summary ---
Author Author [facility] Organization [facility] Address Unknown Phone Unavailable Care Team Providers Care Maintenance And Engineering Manager Name Role Phone Self, Garfield OLVERA PCP Riley Hopson MD [phone] Gino Pandya NEWS LIBRARIAN-BUSINESS SUPPORT MANAGER [phone] Teri Brandon [phone] Unavailable Reason for Referral * Radiology Services (Routine) - Authorized Diagnoses / Procedures Referred By Contact Referred To Conta ct Specialty Diagnoses Chronic heart failure with preserved ejection fraction (HCC) RVF (right ventricular failure) (HCC) Other cirrhosis of liver (HCC) Procedures IR PARACENTESIS THERAPEUTIC Carlos Longo MD [address] [address] [place] [address] [place] [address] Radiology Referral ID Status Reason Start Date Expiration Visits Vi sits Date Requested Authorized [id number] Authorized 01/22/2021 01/22/2022 20 20 OR BIOSTATISTICIAN/GROUP LEADER Reason for Visit * Radiology Services (Routine) - Authorized Diagnoses / Procedures Referred By Contact Referred To Conta ct Specialty Diagnoses Chronic heart failure with preserved ejection fraction (HCC) RVF (right ventricular failure) (HCC) Other cirrhosis of liver (HCC) Procedures IR PARACENTESIS THERAPEUTIC Carlos Longo MD [address] [place] [address] [facility] [place] [address] [place] [address] Radiology Referral ID Status Reason Start Date Expiration Visits Vi sits Date Requested Authorized [id number] Authorized 01/22/2021 01/22/2022 20 20 Encounter Details Care Team Description Date Type Department Karsten Griffiths MD [facility] [address] [id number] Priya Becker, RT(R)(),LRT Alondra Augustin RN Chronic heart failure with preserved eje ction fraction (HCC) 03/08/2021 Hospital Interventional Radi ology: Encounter Maritza Oviedo [facility] [address] [place] [address] Social History Date Tobacco Use Types Packs/Day Years Used Never Smoker Smokeless Tobacco: Never Used Comments Alcohol Use Standard Drinks/Week Not Currently 0 (1 standard drink = 0.6 o z pure alcohol) Sex Assigned at Date Recorded Female 06/01/2020 1:44 PM SENIOR BIOSTATISTICIAN/GROUP LEADER Date Recorded COVID-19 Exposure Response 03/08/2021 7:56 AM SENIOR BIOSTATISTICIAN/GROUP LEADER In the last month, have you been in contact with No / Unsure someone who was confirmed or suspected to have Coronavirus / COVID-19? documented as of this encounter Last Filed Vital Signs Reading Time Taken Comments Vital Sign 103/57 03/08/2021 8:58 AM SENIOR BIOSTATISTICIAN/GROUP LEADER Blood Pressure - - Pulse 36.9 C (98.4 F) 03/08/2021 8:00 AM SENIOR BIOSTATISTICIAN/GROUP LEADER Temperature - - Respiratory Rate 96% 03/08/2021 8:58 AM SENIOR BIOSTATISTICIAN/GROUP LEADER Oxygen Saturation - - Inhaled Oxygen Concentration [...] Brigitte Hinojosa RN - 03/08/2021 9:00 AM SENIOR BIOSTATISTICIAN/GROUP LEADER Interventional Radiology Outpatient Scheduling Checklist 1. Name of Procedure(s): Paracentesis 2. Date of Procedure: 03/08/21 3. Arrival Time: 0800 4. Procedure Time: 0900 5. Correct Procedural Room Assignment: [facility] 6. Blood Thinners Triaged and instructed per protocol: Y/N/NA: Yes. Pt is t aking Warfarin and was instructed to continue taking per protocol. Confirmed accurate instructions sent to patient: Y/N: NA 7. Procedure Order Verified: Y/N: Yes 9. Patient instructed to have a pile driver: Y/N/NA: Yes 10. Patient instructed on [...] procedure instructions: Y/N: No; refused mychar t OR BIOSTATISTICIAN/GROUP LEADER documented in this encounter H&P Notes * Karsten Griffiths MD - 03/08/2021 7:51 AM SENIOR BIOSTATISTICIAN/GROUP LEADER Pre Procedure History and Physical/Sedation Plan-OP Procedure Date: 03/08/2021 Planned Procedure(s): Para Indication: ascites Chief Complaint: above History of Present Illness: Zaria Paulson is a 61 y.o. female. Patient Active Problem List Diagnosis Date Noted Fall 2021 Acute kidney injury superimposed on CKD ([facility]) 01/02/2021 Severe malnutrition ([facility]) 12/27/2020 Severe sepsis ([facility]) 12/22/2020 Acute on chronic diastolic (congestive) heart failure ([facility]) 12/10/2020 RVF (right ventricular failure) ([facility]) 11/30/2020 Hyponatremia 11/30/2020 Acute on chronic heart failure ([facility]) 11/29/2020 Hematoma of left flank 11/15/2020 Hematoma of right flank 11/15/2020 Hematuria 11/15/2020 Nontraumatic rectus hematoma 11/04/2020 Hypoalbuminemia 10/23/2020 LEONORA (acute kidney injury) ([facility]) 10/21/2020 GI bleeding 10/20/2020 Cirrhosis ([facility]) 09/07/2020 Non-ischemic cardiomyopathy (HCC) 09/07/2020 Paroxysmal atrial fibrillation (HCC) 09/07/2020 Stage 3b chronic kidney disease (HCC) 09/07/2020 Atrial tachycardia ([facility]) 09/07/2020 Iron deficiency anemia 08/03/2020 High output [...] 06/06/2020 Performed by Bao Hernández MD at [facility] COLONOSCOPY DIAGNOSTIC WITH SPECIMEN COLLECTION BY BRUSHING/ WASHING - FLEXI BLE N/A 06/06/2020 Performed by Bao Hernández MD at [facility] ANGIOGRAPHY CORONARY ARTERY WITH RIGHT AND LEFT HEART CATHETERIZATION N/A Performed by Higinio Clarke MD at [facility] FULL STACK WEB DEVELOPER POSSIBLE PERCUTANEOUS CORONARY STENT PLACEMENT WITH ANGIOPLASTY N/A Performed by Higinio Clarke MD at [facility] FULL STACK WEB DEVELOPER ESOPHAGOGASTRODUODENOSCOPY WITH SPECIMEN COLLECTION BY BRUSHING/ WASHING N/A 10/21/2020 Performed by Cosmo Gomez MD at [facility] SIGMOIDOSCOPY WITH CONTROL OF BLEEDING - FLEXIBLE N/A 10/21/2020 Performed by Cosmo Gomez MD at [facility] SIGMOIDOSCOPY WITH DIRECTED SUBMUCOSAL INJECTION - FLEXIBLE 10/21/2020 Performed by Cosmo Gomez MD at [facility] END[facility] ESOPHAGOGASTRODUODENOSCOPY WITH CONTROL OF BLEEDING - FLEXIBLE N/A Performed by Bao Hernández MD at [facility] Medications Prior to Admission Medication Sig [...] No pertinent labs Karsten Griffiths MD Pager OR BIOSTATISTICIAN/GROUP LEADER documented in this encounter Procedure Notes * Karsten Griffiths MD - 03/08/2021 8:19 AM SENIOR BIOSTATISTICIAN/GROUP LEADER Immediate Post Procedure Note Date: 03/08/2021 Attending Physician: Sussy Griffiths Catering Sales Manager(s): Priya Procedure(s): para Indications: ascites Findings: above Anesthesia: Local 5 mL 1% lidocaine without epinephrine Sedation/Medication Plan: Other Time out performed: Consent obtained, correct patient verified, correct procedur e verified, correct site verified, patient marked as necessary. Estimated Blood Loss: None/Negligible Specimen(s) Removed/Disposition: None Complications: None Comments: Karsten Griffiths MD OR BIOSTATISTICIAN/GROUP LEADER documented in this encounter Miscellaneous Notes * Patient Education - Brigitte Hinojosa RN - 03/08/2021 9:00 AM SENIOR BIOSTATISTICIAN/GROUP LEADER Dear Ms. Paulson, Thank you for choosing [facility] Interventional Rad iology for your procedure. Your appointment information is listed below: Appointment Date: 03/08/21 Appointment Time: 9:00 AM Arrival Time: 8:00 AM Location: [facility]: [address] [place] [address] Parking: available in the front of the building INTERVENTIONAL RADIOLOGY PRE-PROCEDURE INSTRUCTIONS LOCAL You are scheduled for a procedure in Interventional Radiology. Please follow [facility] instructions and any direction from your Primary [...] your care and activities after the procedure. OR BIOSTATISTICIAN/GROUP LEADER * Patient Instructions - Kassandra Harmon RN - 03/08/2021 7:45 AM SENIOR BIOSTATISTICIAN/GROUP LEADER Images from the original note were not [...] to the procedu re performed at the [facility] Location, call [phone] Friday-Friday from 7 -5p. After-hours and weekends, please call [phone] and ask for the [facility] Multiple Launch Rocket System Crewmember on-call. You or your caregiver should call 911 for any severe symptoms such as excessive bleeding, severe dizziness, trouble breathing or loss of consciousness. OR BIOSTATISTICIAN/GROUP LEADER documented in this encounter Plan of Treatment Care Team Description Date Type Specialty Nithya Madison, NEWS LIBRARIAN-BUSINESS SUPPORT MANAGER [address] [place] [address] Larry Tatum MD [address] [place] [address] Jeanette Kingston RT(R)(),LRT 03/19/2021 Hospital Radiology Encounter Carlos Longo MD 4000 [facility] [address] [place] [address] [place] [address], [address] [place] [phone] Canceled (Patient-Personal) 03/22/2021 Hospital Radiology [place] Al[place] [address], [address] [place] [address] Nonrheumatic tricuspid valve regurgitati on 03/27/2021 Hospital Cardiology Encounter Jacob Almaraz [place] [address] [place] [address] CATHETERIZATION RIGHT HEART 03/27/2021 Surgery Cardiology Date/Time Name Priority Associated Diagnose s 03/27/2021 9:05 AM SENIOR BIOSTATISTICIAN/GROUP LEADER CATHETERIZATION RIGHT HEART Nonrheumatic tricuspid valve regurgitation documented as of this encounter Goals Goal Patient Associated Recent Progress Patient-Stat Aut hor Goal Type Problems ed? Improve [facility] On track (10/23/2020 Yes Sheldon, 1:06 PM CDT) CHRYSTAL Singh [facility] On track (12/25/2020 Yes Chapin, 2:41 PM CDT) CHRYSTAL Singh Note: "To get better and stronger." documented as of this encounter Procedures Comments Procedure Name Priority Date/Time Associated Diag nosis IR PARACENTESIS Routine 03/08/2021 Chronic heart failure THERAPEUTIC 8:32 AM SENIOR BIOSTATISTICIAN/GROUP LEADER with preserved ejec tion fraction (HCC) RVF (right ventricular failure) (HCC) Other cirrhosis of liver (HCC) documented in this encounter Results * IR PARACENTESIS THERAPEUTIC (03/08/2021 8:32 AM SENIOR BIOSTATISTICIAN/GROUP LEADER) Modality Anatomical Region Laterality Ultrasound Specimen Impressions [facility] RESULTS - 03/08/2021 11:35 AM SENIOR BIOSTATISTICIAN/GROUP LEADER IMPRESSION: Ultrasound guided paracentesis with removal of [...] [facility] RESULTS - 03/08/2021 11:35 AM SENIOR BIOSTATISTICIAN/GROUP LEADER Exam: Ultrasound-guided paracentesis. History: Ascites. Technique: After obtaining informed written consent the patient was placed supine on the procedure table. Using ultrasound guidance, an appropriate insertion site in the right lower quadrant was marked. The patient was prepped and draped in the usual sterile fashion. Lidocaine was used for local anesthesia. A Bon-M-Oabkhsdb needle was inserted into the abdomen, with [...] Lidocaine was used for local anesthesia. A Sai-M-Bjrzyysn needle was inserted into the abdomen, with [...] Medication Order MAR Action 03/08/2021 8:22 AM SENIOR BIOSTATISTICIAN/GROUP LEADER 12.5 g albumin 25% injection Given - New INTRA-PROCEDURE MED(CONT), Starting on Bag Toya 03/08/21 at 0822, Until Toya 1 at 0822 documented in this encounter Active and Recently Administered Medications Times are shown in SENIOR BIOSTATISTICIAN/GROUP LEADER. 03/07/2021 03/08/2021 Medication Order 03/06/2021 0822 (Given [...] Concerns Noted Time Assessment 03/08/2021 8:00 AM SENIOR BIOSTATISTICIAN/GROUP LEADER A fall risk assessment has been complet ed for the patient 12/07/2020 3:18 PM CDT PHQ-2 Depression Total Score: 2 documented as of this encounter Care Teams Start Date End Date Maintenance And Engineering Manager Relationship Specialty 05/15/20 Garfield Gray MD PCP - [address] [address] 06/13/20 Riley Hopson MD Consulting Cardiovascul [address] Physician [address] Disease [address] [place], [place] [address] 12/20/20 Gino Pandya, NEWS LIBRARIAN-BUSINESS SUPPORT MANAGER Nurse Nurse [address] [address] 01/19/21 Teri Brandon Continuum of Care Case Management documented as of this encounter
--- OUTSIDE RECORDS SUMMARY | 2021-03-14 10:44 | XMS REPORT | Encounter Summary ---
Author Author [facility] Organization [facility] Address Unknown Phone Unavailable Care Team Providers Care Graphics Coordinator Name Role Phone Self, Garfield OLVERA PCP Riley Hopson MD [phone] Gino Pandya APRN-SURGICAL PHYSICIAN ASSISTANT [phone] Teri Brandon [phone] Unavailable Encounter Details Care Team Description Date Type Department Aarti Mars RN 02/22/2021 Prep for Case Cardiology: [facility] 4000 [facility] [address], [address] [place] [address] Social History Date Tobacco Use Types Packs/Day Years Used Never Smoker Smokeless Tobacco: Never Used Comments Alcohol Use Standard Drinks/Week Not Currently 0 (1 standard drink = 0.6 o z pure alcohol) Sex Assigned at Date Recorded Female 06/01/2020 1:44 PM RIVER RAFTING GUIDE Date Recorded COVID-19 Exposure Response 02/19/2021 7:52 AM RIVER RAFTING GUIDE In the last month, have you been [...] Team Description Date Type Specialty Nithya Madison, GRISTMILL OPERATOR-SURGICAL PHYSICIAN ASSISTANT [address] [place], [place] [id number] Larry Tatum MD 4000 [facility] [address]nd [address] [place], [place] [phone] Jeanette Kingston, RT(R)(),LRT 03/19/2021 [facility] Radiology Encounter Carlos Longo MD 4000 [facility] [address] [place], [place] [phone] [place] [address], [address] [place] [phone] Canceled (Patient-Personal) 03/22/2021 [facility] Radiology Encounter Jacob Almaraz [place] [address], [address] [place] [phone] Nonrheumatic tricuspid valve regurgitati on 03/27/2021 [facility] Cardiology [place]counter [place] [address], [address] [place] [phone] CATHETERIZATION RIGHT HEART 03/27/2021 Surgery Cardiology Date/Time Name Priority Associated Diagnose s 03/27/2021 9:05 AM RIVER RAFTING GUIDE CATHETERIZATION RIGHT HEART Nonrheumatic tricuspid valve regurgitation documented as of this encounter Goals Goal Patient Associated Recent Progress Patient-Stat Aut hor Goal Type Problems ed? [facility] On track (10/23/2020 Yes Sheldon, 1:06 PM CDT) CHRYSTAL Singh [facility] On track (12/25/2020 Yes Sheldon, 2:41 PM CDT) Samantha, RN Note: "To get better and stronger." documented as of this encounter Visit Diagnoses Not on filedocumented in this encounter Additional Health Concerns Noted Time Assessment 02/19/2021 8:13 AM RIVER RAFTING GUIDE A fall risk assessment has been complet ed for the patient 12/07/2020 3:18 PM CDT PHQ-2 Depression Total Score: 2 documented as of this encounter Care Teams Start Date End Date Graphics Coordinator Relationship Specialty 05/15/20 Garfield Gray MD PCP - [address] [address] 06/13/20 Riley Hopson MD Consulting Cardiovascul [address] Physician ar Disease [address] [place] [address] 12/20/20 Gino Pandya, GRISTMILL OPERATOR-SURGICAL PHYSICIAN ASSISTANT Nurse Nurse [address] [place] [phone] 01/19/21 Teri Brandon Continuum of Care Case Management documented as of this encounter
--- OUTSIDE RECORDS SUMMARY | 2021-03-14 10:44 | XMS REPORT | Encounter Summary ---
Author Author [facility] Organization [facility] Address Unknown Phone Unavailable Care Team Providers Care Grinder Mill Operator Name Role Phone Self, Garfield OLVERA PCP Riley Hopson MD [phone] Gnio Pandya APRN-ELECTRIC SHOVEL OPERATOR [phone] Teri Brandon [phone] Unavailable Reason for Visit * Reason Comments Labs Only Encounter Details Care Team Description Date Type Department Kathryn Barbosa MA Labs Only 03/07/2021 Documentation Cardiology: [facility] [address] [place] [address] [address], [address] [place] [address] Social History Date Tobacco Use Types Packs/Day Years Used Never Smoker Smokeless Tobacco: Never Used Comments Alcohol Use Standard Drinks/Week Not Currently 0 (1 standard drink = 0.6 o z pure alcohol) Sex Assigned at Date Recorded Female 06/01/2020 1:44 PM DIGITAL PRODUCTION ARTIST Date Recorded COVID-19 Exposure Response 03/05/2021 8:08 AM DIGITAL PRODUCTION ARTIST In the last month, have you been [...] Team Description Date Type Specialty Nithya Madison, FARM FORESTRY AND GARDEN WORKERS-ELECTRIC SHOVEL OPERATOR [address] [place], [place] [phone] Larry Tatum MD 4000 [facility] 2nd [address]r [place], [place] [phone] Jeanette Kingston RT(R)(),LRT 03/19/2021 Hospital Radiology Encounter Carlos Longo MD 4000 [facility] TSZ156 [place], [place] [phone] [place] [address], [address] [place] [phone] Canceled (Patient-Personal) 03/22/2021 [facility] Radiology Encounter Jacob Almaraz [place] [address], [address] [place] [phone] Nonrheumatic tricuspid valve regurgitati on 03/27/2021 Hospital Cardiology Encounter Jacob Al[place]az [place] [address], [address] [place] [phone] CATHETERIZATION RIGHT HEART 03/27/2021 Surgery Cardiology Date/Time Name Priority Associated Diagnose s 03/27/2021 9:05 AM DIGITAL PRODUCTION ARTIST CATHETERIZATION RIGHT HEART Nonrheumatic tricuspid valve regurgitation documented as of this encounter Goals Goal Patient Associated Recent Progress Patient-Stat Aut hor Goal Type Problems ed? [facility] On track (10/23/2020 Yes Sheldon, 1:06 PM CDT) CHRYSTAL Singh [facility] On track (12/25/2020 Yes Sheldon, 2:41 [...] P shane Number [facility] [address] [place] [address] documented in this encounter Visit Diagnoses Diagnosis Chronic heart failure with preserved ej ection fraction (HCC) Nonrheumatic tricuspid valve regurgitat ion Tricuspid valve disorders, specified as nonrheumatic documented in this encounter Additional Health Concerns Noted Time Assessment 03/05/2021 8:16 AM DIGITAL PRODUCTION ARTIST A fall risk assessment has been complet ed for the patient 12/07/2020 3:18 PM CDT PHQ-2 Depression Total Score: 2 documented as of this encounter Care Teams Start Date End Date Grinder Mill Operator Relationship Specialty 05/15/20 Garfield Gray MD PCP - [address] [address] 06/13/20 Riley Hopson MD Consulting Cardiovascul [address] Physician ar Disease [address] [place] [address] 12/20/20 Gino Pandya, FARM FORESTRY AND GARDEN WORKERS-ELECTRIC SHOVEL OPERATOR Nurse Nurse 4000 [facility] [place] [address] 01/19/21 Teri Brandon Continuum of Care Case Management documented as of this encounter
--- OUTSIDE RECORDS SUMMARY | 2021-03-14 10:44 | XMS REPORT | Encounter Summary ---
Author Author [facility] Organization [facility] Address Unknown Phone Unavailable Care Team Providers Care Finisher Wallboard And Plasterboard Name Role Phone Self, Garfield OLVERA PCP Riley Hopson MD [phone] Gino Pandya AMBULATORY CARE-PREPRINT ANALYST [phone] Teri Brandon [phone] Unavailable Encounter Details Care Team Description Date Type Department 03/05/2021 Travel Social History Date Tobacco Use Types Packs/Day Years Used Never Smoker Smokeless Tobacco: Never Used Comments Alcohol Use Standard Drinks/Week Not Currently 0 (1 standard drink = 0.6 o z pure alcohol) Sex Assigned at Date Recorded Female 06/01/2020 1:44 PM SMOKEHOUSE OPERATOR Date Recorded COVID-19 Exposure Response 03/05/2021 8:08 AM SMOKEHOUSE OPERATOR In the last month, have you been [...] Team Description Date Type Specialty Nithya Madison, AMBULATORY CARE-PREPRINT ANALYST [address] [facility] [address] [place] [address] Larry Tatum MD 4000 [facility] 2nd Flr [place], [place] [phone] Jeanette Kingston, RT(R)(),LRT 03/19/2021 Hospital Radiology Encounter Carlos Longo MD 4000 [facility] [address] [place], [place] [phone] [place] [address], [address] [place] [phone] Canceled (Patient-Personal) 03/22/2021 Hospital Radiology Encounter Jacob Almaraz [address], [address] [place] [phone] Nonrheumatic tricuspid valve regurgitati on 03/27/2021 Hospital [place] [address], [address] [place] [phone] CATHETERIZATION RIGHT HEART 03/27/2021 Surgery Cardiology Date/Time Name Priority Associated Diagnose s 03/27/2021 9:05 AM SMOKEHOUSE OPERATOR CATHETERIZATION RIGHT HEART Nonrheumatic tricuspid valve regurgitation documented as of this encounter Goals Goal Patient Associated Recent Progress Patient-Stat Aut hor Goal Type Problems ed? Improve [facility] On track (10/23/2020 Yes Sheldon, 1:06 PM CDT) CHRYSTAL Singh [facility] On track (12/25/2020 Yes Sheldon, 2:41 PM CDT) CHRYSTAL Singh Note: "To get better and stronger." documented as of this encounter Visit Diagnoses Not on filedocumented in this encounter Additional Health Concerns Noted Time Assessment 03/05/2021 8:16 AM SMOKEHOUSE OPERATOR A fall risk assessment has been complet ed for the patient 12/07/2020 3:18 PM CDT PHQ-2 Depression Total Score: 2 documented as of this encounter Care Teams Start Date End Date Finisher Wallboard And Plasterboard Relationship Specialty 05/15/20 Garfield Gray MD PCP - [address] [address] 06/13/20 Riley Hopson MD Consulting Cardiovascul [address] Physician ar Disease [address] [place], [place] [address] 12/20/20 Gino Pandya, AMBULATORY CARE-PREPRINT ANALYST Nurse Nurse [address] [place] [phone] 01/19/21 Teri Brandon Continuum of Care Case Management documented as of this encounter
--- OUTSIDE RECORDS SUMMARY | 2021-03-14 10:44 | XMS REPORT | Encounter Summary ---
Author Author [facility] Organization [facility] Address Unknown Phone Unavailable Care Team Providers Care Shot Core Drill Operator Name Role Phone Self, Garfield OLVERA PCP Riley Hopson MD [phone] Gino Pandya SNAKE CHARMER-LOSS PREVENTION ANALYST [phone] Teri Brandon [phone] Unavailable Encounter Details Care Team Description Date Type Department Aarti Mars RN Nonrheumatic tricuspid valve regurgitati on (Primary Dx); Encounter for screening laboratory testing for COVID-19 virus in asymptomatic patient 02/22/2021 Prep for Case Cardiology: [facility] 4000 [facility], [address] [place] [address] Social History Date Tobacco Use Types Packs/Day Years Used Never Smoker Smokeless Tobacco: Never Used Comments Alcohol Use Standard Drinks/Week Not Currently 0 (1 standard drink = 0.6 o z pure alcohol) Sex Assigned at Date Recorded Female 06/01/2020 1:44 PM INFRASTRUCTURE DEVELOPER Date Recorded COVID-19 Exposure Response 02/19/2021 7:52 AM INFRASTRUCTURE DEVELOPER In the last month, have you been [...] Team Description Date Type Specialty Nithya Madison, SNAKE CHARMER-LOSS PREVENTION ANALYST [address] [place] [address] Larry Tatum MD 4000 [facility] 2nd [place] [address] Jeanette Kingston, (R)(),LRT 03/19/2021 Hospital Radiology Encounter Carlos Longo MD 4000 [facility] [address] [place] [address] [place] [address], [address] [place] [phone] Canceled (Patient-Personal) 03/22/2021 [facility] Radiology [place] [address], [address] [place] [phone] Nonrheumatic tricuspid valve regurgitati on 03/27/2021 Hospital Cardiology [place]counter [place] [address], [address] [place] [phone] CATHETERIZATION RIGHT HEART 03/27/2021 Surgery Cardiology Order Schedule Name Type Priority Associated Diag noses Expected: 03/23/2021 (Approximate), Expi res: 02/22/2022 COVID-19 (SARS-COV-2) PCR Microbiology Routine Enco unter for screening laboratory testing for COVID-19 virus in asymptomatic patient Date/Time Name Priority Associated Diagnose s 03/27/2021 9:05 AM INFRASTRUCTURE DEVELOPER CATHETERIZATION RIGHT HEART Nonrheumatic tricuspid valve regurgitation documented as of this encounter Goals Goal Patient Associated Recent Progress Patient-Stat Aut hor Goal Type Problems ed? [facility] On track (10/23/2020 Yes Sheldon, 1:06 PM CDT) CHRYSTAL Singh [facility] On track (12/25/2020 Yes Sheldon, [...] Request Count Last Ordered Date CASE REQUEST CLAIMS ADMINISTRATOR 1 02/22/2021 documented in this encounter Additional Health Concerns Noted Time Assessment 02/19/2021 8:13 AM INFRASTRUCTURE DEVELOPER A fall risk assessment has been complet ed for the patient 12/07/2020 3:18 PM CDT PHQ-2 Depression Total Score: 2 documented as of this encounter Care Teams Start Date End Date Shot Core Drill Operator Relationship Specialty 05/15/20 Garfield Gray MD PCP - [address] [phone] 06/13/20 Riley Hopson MD Consulting Cardiovascul [address] Physician [address] Disease [address] [place], [place] [address] 12/20/20 Gino Pandya, SNAKE CHARMER-LOSS PREVENTION ANALYST Nurse Nurse 4000 [facility] Practitioner [address] [address] 01/19/21 Teri Brandon Continuum of Care Case Management documented as of this encounter
--- OUTSIDE RECORDS SUMMARY | 2021-03-14 10:44 | XMS REPORT | Encounter Summary ---
Author Author [facility] Organization [facility] Address Unknown Phone Unavailable Care Team Providers Care International Student Advisor Name Role Phone Self, Garfield OLVERA PCP Riley Hopson MD [phone] Gino Pandya APRN-MANAGER OPERATIONS [phone] Teri Brandon [phone] Unavailable Reason for Visit * Reason Comments Anticoagulation INR 2.2 Encounter Details Care Team Description Date Type Department Helen Waggoner RN Anticoagulation (INR 2.2) 03/07/2021 Anticoagulation Cardiology: [facility] [address] [place] [address] 1, [phone] Social History Date Tobacco Use Types Packs/Day Years Used Never Smoker Smokeless Tobacco: Never Used Comments Alcohol Use Standard Drinks/Week Not Currently 0 (1 standard drink = 0.6 o z pure alcohol) Sex Assigned at Date Recorded Female 06/01/2020 1:44 PM DAMAGED FREIGHT INSPECTOR Date Recorded COVID-19 Exposure Response 03/05/2021 8:08 AM DAMAGED FREIGHT INSPECTOR In the last month, have you been [...] Progress Notes * Helen Waggoner, RN - 03/07/2021 11:58 AM DAMAGED FREIGHT INSPECTOR INR 2.2. Called patient and left detailed VM to patient with instructions of war farin intake. Informed patient my chart message will be sent with instructions. Next INR checked advised to be Friday, 03/12 or Friday, 03/14 per pt erendira moss. I asked for CB with questions to nurse triage line. GED FREIGHT INSPECTOR documented in this encounter Plan of Treatment Care Team Description Date Type Specialty Nithya Madison, GYROSCOPIC INSTRUMENT MECHANIC-MANAGER OPERATIONS [address] [place] [address] Larry Tatum MD [address] [address] Jeanette Kingston, RT(R)(),LRT 03/19/2021 Hospital Radiology Encounter Carlos Longo MD 4000 [facility] KLY143 [address] [place] [address], [address] [place] [address] Canceled (Patient-Personal) 03/22/2021 Hospital Radiology [place] Jacob Almaraz [place] [address], [address] [place] [address] Nonrheumatic tricuspid valve regurgitati on 03/27/2021 Hospital Cardiology Encounter Jacob Almaraz MD [address], [address] [place] [address] CATHETERIZATION RIGHT HEART 03/27/2021 Surgery Cardiology Date/Time Name Priority Associated Diagnose s 03/27/2021 9:05 AM DAMAGED FREIGHT INSPECTOR CATHETERIZATION RIGHT HEART Nonrheumatic tricuspid valve regurgitation documented as of this encounter Goals Goal Patient Associated Recent Progress Patient-Stat Aut hor Goal Type Problems ed? [facility] On track (10/23/2020 Yes Sheldon, 1:06 PM CDT) CHRYSTAL Singh [facility] On track (12/25/2020 Yes Sheldon, 2:41 [...] Concerns Noted Time Assessment 03/05/2021 8:16 AM DAMAGED FREIGHT INSPECTOR A fall risk assessment has been complet ed for the patient 12/07/2020 3:18 PM CDT PHQ-2 Depression Total Score: 2 documented as of this encounter Care Teams Start Date End Date International Student Advisor Relationship Specialty 05/15/20 Garfield Gray MD PCP - [address] [address] 06/13/20 Riley Hopson MD Consulting Cardiovascul [address] Physician ar Disease [address] [place], [place] [address] 12/20/20 Gino Pandya, GYROSCOPIC INSTRUMENT MECHANIC-MANAGER OPERATIONS Nurse Nurse [address] [place] [address] 01/19/21 Teri Brandon Continuum of Care Case Management documented as of this encounter
--- OUTSIDE RECORDS SUMMARY | 2021-03-14 10:44 | XMS REPORT | Encounter Summary ---
Author Author [facility] Organization [facility] Address Unknown Phone Unavailable Care Team Providers Care Special Education Coordinator Name Role Phone Self, Garfield OLVERA PCP Riley Hopson MD [phone] Gino Pandya COMMERCIAL CREDIT LEAD-UPTWIST SPINNER [phone] Teri Brandon [phone] Unavailable Reason for Referral * Radiology Services (Routine) - Authorized Diagnoses / Procedures Referred By Contact Referred To Conta ct Specialty Diagnoses Chronic heart failure with preserved ejection fraction (HCC) RVF (right ventricular failure) (HCC) Other cirrhosis of liver (HCC) Procedures IR PARACENTESIS THERAPEUTIC Carlos Longo MD [address] [address] [place] [place] [address] [place] [address] Radiology Referral ID Status Reason Start Date Expiration Visits Vi sits Date Requested Authorized [id number] Authorized 01/22/2021 01/22/2022 20 20 DEVELOPMENT PROJECT MANAGER Reason for Visit * Radiology Services (Routine) - Authorized Diagnoses / Procedures Referred By Contact Referred To Conta ct Specialty Diagnoses Chronic heart failure with preserved ejection fraction (HCC) RVF (right ventricular failure) (HCC) Other cirrhosis of liver (HCC) Procedures IR PARACENTESIS THERAPEUTIC Carlos Longo MD [address] [place] [address] [place] [place] [address] [place] [address] Radiology Referral ID Status Reason Start Date Expiration Visits Vi sits Date Requested Authorized [id number] Authorized 01/22/2021 01/22/2022 20 20 Encounter Details Care Team Description Date [place] [address], [address] [place] [phone] Willow Sue, RN Jeanette Kingston, RT(R)(),LRT Chronic heart failure with preserved eje ction fraction (HCC) 02/19/2021 Hospital Interventional Radi ology: Encounter [facility] [place] [address] [place] [address] Social History Date Tobacco Use Types Packs/Day Years Used Never Smoker Smokeless Tobacco: Never Used Comments Alcohol Use Standard Drinks/Week Not Currently 0 (1 standard drink = 0.6 o z pure alcohol) Sex Assigned at Date Recorded Female 06/01/2020 1:44 PM LAND DEVELOPMENT PROJECT MANAGER Date Recorded COVID-19 Exposure Response 02/19/2021 7:52 AM LAND DEVELOPMENT PROJECT MANAGER In the last month, have you been in contact with No / Unsure someone who was confirmed or suspected to have Coronavirus / COVID-19? documented as of this encounter Last Filed Vital Signs Reading Time Taken Comments Vital Sign 113/56 02/19/2021 10:30 AM LAND DEVELOPMENT PROJECT MANAGER Blood Pressure 124 02/19/2021 10:30 AM LAND DEVELOPMENT PROJECT MANAGER Pulse 36.5 C (97.7 F) 02/19/2021 8:15 AM LAND DEVELOPMENT PROJECT MANAGER Temperature - - Respiratory Rate 96% 02/19/2021 10:15 AM LAND DEVELOPMENT PROJECT MANAGER Oxygen Saturation - - Inhaled Oxygen Concentration 61.6 kg (135 lb 12.8 oz) 02/19/2021 8:15 AM LAND DEVELOPMENT PROJECT MANAGER Weight 157.5 cm (5' 2") 02/19/2021 8:15 AM LAND DEVELOPMENT PROJECT MANAGER Height 24.84 02/19/2021 8:15 AM LAND DEVELOPMENT PROJECT MANAGER Body Mass Index documented in this encounter [...] Claudia Crenshaw, RN - 02/19/2021 10:47 AM LAND DEVELOPMENT PROJECT MANAGER Pt asymptomatic with Afib. Rates down to [...] elevated hear t rates. Dr Nelson aware. DEVELOPMENT PROJECT MANAGER * Willow Sue, CHRYSTAL - 02/19/2021 9:19 AM LAND DEVELOPMENT PROJECT MANAGER Patient's heart rate increased to 130s from previous 80s once patient was placed in procedure room. Patient was placed on the heart monitor. Patient in A-fib without any symptoms during heart rate change. Patient denying SOA, dizziness, heart racing. Patient's medications reviewed with patient and yudelka bueno verbalized she follows with Dr. Longo for her heart management and is usua lly is A-fib. DEVELOPMENT PROJECT MANAGER documented in this encounter H&P Notes * Scout Nelson MD - 02/19/2021 7:58 AM LAND DEVELOPMENT PROJECT MANAGER Pre Procedure History and Physical/Sedation Plan Procedure [...] 06/06/2020 Performed by Bao Hernández MD at [facility] COLONOSCOPY DIAGNOSTIC WITH SPECIMEN COLLECTION BY BRUSHING/ WASHING - FLEXI BLE N/A 06/06/2020 Performed by Bao Hernández MD at [facility] ANGIOGRAPHY CORONARY ARTERY WITH RIGHT AND LEFT HEART CATHETERIZATION N/A Performed by Higinio Clarke MD at [facility] MUSICIAN POSSIBLE PERCUTANEOUS CORONARY STENT PLACEMENT WITH ANGIOPLASTY N/A Performed by Higinio Clarke MD at [facility] ESOPHAGOGASTRODUODENOSCOPY WITH SPECIMEN COLLECTION BY BRUSHING/ WASHING N/A 10/21/2020 Performed by Cosmo Gomez MD at [facility] SIGMOIDOSCOPY WITH CONTROL OF BLEEDING - FLEXIBLE N/A 10/21/2020 Performed by Cosmo Gomez MD at [facility] SIGMOIDOSCOPY WITH DIRECTED SUBMUCOSAL INJECTION - FLEXIBLE 10/21/2020 Performed by Cosmo Gomez MD at [facility] ESOPHAGOGASTRODUODENOSCOPY WITH CONTROL OF BLEEDING - FLEXIBLE N/A Performed by Bao Hernández MD at [facility] Medications Prior to Admission Medication Sig Dispense [...] performed on 02/12/21. Scout Nelson MD Pager [phone] DEVELOPMENT PROJECT MANAGER documented in this encounter Procedure Notes * Scout Nelson MD - 02/19/2021 9:18 AM LAND DEVELOPMENT PROJECT MANAGER Immediate Post Procedure Note Date: 02/19/2021 Attending Physician: Scout Nelson MD Procedure(s): paracentesis Indications: ascites Findings: Cloudy fluid Anesthesia: Local Sedation/Medication Plan: Lidocaine Time out performed: Consent obtained, correct patient verified, correct procedur e verified, correct site verified, patient marked as necessary. Estimated Blood Loss: None/Negligible Specimen(s) Removed/Disposition: Yes, sent to pathology Complications: None Comments: Tolerated well Scout Nelson MD DEVELOPMENT PROJECT MANAGER documented in this encounter Miscellaneous Notes * Patient Instructions - Claudia Crenshaw RN - 02/19/2021 8:17 AM LAND DEVELOPMENT PROJECT MANAGER Images from the original note were not [...] to the procedu re performed at the [facility], call [phone] Friday-Friday from 7 -5p. After-hours and weekends, please call [phone] and ask for the [facility] Director on-call. You or your caregiver should call [phone] for any severe symptoms such as excessive bleeding, severe dizziness, trouble breathing or loss of consciousness. DEVELOPMENT PROJECT MANAGER documented in this encounter Plan of Treatment Care Team Description Date Type Specialty Nithya Madison, COMMERCIAL CREDIT LEAD-UPTWIST SPINNER [address] [place], [place] [phone] Larry Tatum MD 4000 [facility] 2nd [place] [address] Jeanette Kingston RT(R)(),LRT 03/19/2021 Hospital Radiology Encounter Carlos Longo MD 4000 [facility] [id number] [place] [address] [place] [address], [address] [place] [phone] Canceled (Patient-Personal) 03/22/2021 Hospital Radiology Encounter Jacob Almaraz MD [address], [address] [place] [phone] Nonrheumatic tricuspid valve regurgitati on 03/27/2021 Hospital Cardiology [place]counter [place] Al[place] [address], [address] [place] [address] CATHETERIZATION RIGHT HEART 03/27/2021 Surgery Cardiology Date/Time Name Priority Associated Diagnose s 03/27/2021 9:05 AM LAND DEVELOPMENT PROJECT MANAGER CATHETERIZATION RIGHT HEART Nonrheumatic tricuspid valve regurgitation documented as of this encounter Goals Goal Patient Associated Recent Progress Patient-Stat Aut hor Goal Type Problems ed? Improve [facility] On track (10/23/2020 Yes Sheldon, 1:06 PM CDT) CHRYSTAL Singh [facility] On track (12/25/2020 Yes Sheldon, 2:41 PM CDT) CHRYSTAL Singh Note: "To get better and stronger." documented as of this encounter Procedures Comments Procedure Name Priority Date/Time Associated Diag nosis IR PARACENTESIS Routine 02/19/2021 Chronic heart failure THERAPEUTIC 9:50 AM LAND DEVELOPMENT PROJECT MANAGER with preserved ejec tion fraction (HCC) RVF (right ventricular failure) (HCC) Other cirrhosis of liver (HCC) HC PT(INR) Routine 02/19/2021 Paroxysmal atri al 8:19 AM LAND DEVELOPMENT PROJECT MANAGER fibrillation (HCC) documented in this encounter Results * IR PARACENTESIS THERAPEUTIC (02/19/2021 9:50 AM LAND DEVELOPMENT PROJECT MANAGER) Modality Anatomical Region Laterality Ultrasound Specimen Impressions [facility] RESULTS - 02/19/2021 10:05 AM LAND DEVELOPMENT PROJECT MANAGER 1. Successful ultrasound guided parace ntesis. Finalized by Scout Nelson M.D. on 02/19/2021 10:05 AM. Dictated by Scout Nelson M.D. on 02/19/2021 10:05 AM. Nan [facility] RESULTS - 02/19/2021 10:05 AM LAND DEVELOPMENT PROJECT MANAGER Ultrasound-guided paracentesis CLINICAL INDICATION: Ascites [...] the drugs utilized were: subcutaneous Lidocaine 2% MOLD BUILDER: Scout Nelson M.D. TECHNIQUE: Transverse real time [...] the drugs utilized were: subcutaneous Lidocaine 2% MOLD BUILDER: Scout Nelson M.D. TECHNIQUE: Transverse real time [...] (ABNORMAL) PROTIME INR (PT) (02/19/2021 8:19 AM LAND DEVELOPMENT PROJECT MANAGER) INR 1.4 (H) 0.8 - 1.2 [facility] Specimen Blood Performing Organization Address City/State/ZIP Code P shane Number [facility] [address] [place] [address] documented in this encounter Visit Diagnoses Diagnosis [...] Medication Order MAR Action 02/19/2021 9:29 AM LAND DEVELOPMENT PROJECT MANAGER 37.5 g 200 mL/hr albumin 25% injection Given - New INTRA-PROCEDURE MED(CONT), Starting on Bag 02/19/21 at 0929, Until Fri 1 at 0929 documented in this encounter Active and Recently Administered Medications Times are shown in LAND DEVELOPMENT PROJECT MANAGER. 02/18/2021 02/19/2021 Medication Order 02/17/2021 0929 (Given [...] Concerns Noted Time Assessment 02/19/2021 8:13 AM LAND DEVELOPMENT PROJECT MANAGER A fall risk assessment has been complet ed for the patient 12/07/2020 3:18 PM CDT PHQ-2 Depression Total Score: 2 documented as of this encounter Care Teams Start Date End Date Special Education Coordinator Relationship Specialty 05/15/20 Garfield Gray MD PCP - [address] [address] 06/13/20 Riley Hopson MD Consulting Cardiovascul [address] Physician ar Disease [address] [place], [place] [address] 12/20/20 Gino Pandya, COMMERCIAL CREDIT LEAD-UPTWIST SPINNER Nurse Nurse [address] [place] [address] [address] 01/19/21 Teri Brandon Continuum of Care Case Management documented as of this encounter
--- OUTSIDE RECORDS SUMMARY | 2021-03-14 10:44 | XMS REPORT | Encounter Summary ---
[facility] Address Unknown Phone Unavailable Care Team Providers Care Barrel Tester And Drainer Name Role Phone Self, Garfield OLVERA PCP Riley Hopson MD [phone] Gino Pandya ARTIST'S MODEL-CHIEF RISK OFFICER [phone] Teri Brandon [phone] Unavailable Reason for Referral * Radiology Services (Routine) - Authorized Diagnoses / Procedures Referred By Contact Referred To Conta ct Specialty Diagnoses Chronic heart failure with preserved ejection fraction (HCC) RVF (right ventricular failure) (HCC) Other cirrhosis of liver (HCC) Procedures IR PARACENTESIS THERAPEUTIC Carlos Longo MD [address] [address] [address] [place] [address] Radiology Referral ID Status Reason Start Date Expiration Visits Vi sits Date Requested Authorized [id number] Authorized 01/22/2021 01/22/2022 20 20 CARPENTER Reason for Visit * Radiology Services (Routine) - Authorized Diagnoses / Procedures Referred By Contact Referred To Conta ct Specialty Diagnoses Chronic heart failure with preserved ejection fraction (HCC) RVF (right ventricular failure) (HCC) Other cirrhosis of liver (HCC) Procedures IR PARACENTESIS THERAPEUTIC Carlos Longo MD [address] [place] [address] [address] [place] [address] Radiology Referral ID Status Reason Start Date Expiration Visits Vi sits Date Requested Authorized [id number] Authorized 01/22/2021 01/22/2022 20 20 Encounter Details Care Team Description Date Type Department [place] [address], [address] [place] [phone] Miracle Morales, RN Shae Lino, RT(R)(),LRT Chronic heart failure with preserved eje ction fraction (HCC) 02/12/2021 Hospital Interventional Radi ology: Encounter [facility] [address] [place] [id number] Social History Date Tobacco Use Types Packs/Day Years Used Never Smoker Smokeless Tobacco: Never Used Comments Alcohol Use Standard Drinks/Week Not Currently 0 (1 standard drink = 0.6 o z pure alcohol) Sex Assigned at Date Recorded Female 06/01/2020 1:44 PM FORM CARPENTER Date Recorded COVID-19 Exposure Response 02/12/2021 2:30 PM FORM CARPENTER In the last month, have you been in contact with No / Unsure someone who was confirmed or suspected to have Coronavirus / COVID-19? documented as of this encounter Last Filed Vital Signs Reading Time Taken Comments Vital Sign 99/69 02/12/2021 4:49 PM FORM CARPENTER Blood Pressure - - Pulse 36.7 C (98 F) 02/12/2021 3:00 PM FORM CARPENTER Temperature - - Respiratory Rate 95% 02/12/2021 4:49 PM FORM CARPENTER Oxygen Saturation - - Inhaled Oxygen Concentration 60.3 kg (133 lb) 02/12/2021 3:00 PM FORM CARPENTER Weight 157.5 cm (5' 2") 02/12/2021 3:00 PM FORM CARPENTER Height 24.33 02/12/2021 3:00 PM FORM CARPENTER Body Mass Index documented in this encounter [...] Kayden Felix RN - 02/12/2021 4:00 PM FORM CARPENTER Interventional Radiology Outpatient Scheduling Checklist 1. Name of Procedure(s): Paracentesis 2. Date of Procedure: 02/12/202102/19, 02/26, 03/05, 03/12 and 03/19 3. Arrival Time: 1500 0800 4. Procedure Time: 1600 0900 5. Correct Procedural Room Assignment: [facility] 6. Blood Thinners Triaged and instructed per protocol: Y/N/NA: Patient flakita ing Coumadin, OK to continue per protocol. Confirmed accurate instructions sent to patient: Y/N: YES 7. Procedure Order Verified: Y/N: Yes 9. Patient instructed to have a auto transport driver: Y/N/NA: Yes 10. Patient instructed on [...] Patient declines electronic procedure instructions: Y/N: No CARPENTER documented in this encounter H&P Notes * Blair Greene MD - 02/12/2021 3:47 PM FORM CARPENTER Pre Procedure History and Physical/Sedation Plan-OP Procedure Date: 02/12/2021 Planned Procedure(s): paracentesis Indication: ascites Chief Complaint: ascites History of Present Illness: Zaria Paulson is a 61 y.o. female. ASCITES. Patient Active Problem List Diagnosis Date Noted Fall 2021 Acute kidney injury superimposed on CKD (HCC) 01/02/2021 Severe malnutrition ([facility]) 12/27/2020 Severe sepsis ([facility]) 12/22/2020 Acute on chronic diastolic (congestive) heart failure ([facility]) 12/10/2020 RVF (right ventricular failure) ([facility]) 11/30/2020 Hyponatremia 11/30/2020 Acute on chronic heart failure ([facility]) 11/29/2020 Hematoma of left flank 11/15/2020 Hematoma of right flank 11/15/2020 Hematuria 11/15/2020 Nontraumatic rectus hematoma 11/04/2020 Hypoalbuminemia 10/23/2020 LEONORA (acute kidney injury) ([facility]) 10/21/2020 GI bleeding 10/20/2020 Cirrhosis ([facility]) 09/07/2020 Non-ischemic cardiomyopathy (HCC) 09/07/2020 Paroxysmal [...] 06/06/2020 Performed by Bao Hernández MD at [facility] COLONOSCOPY DIAGNOSTIC WITH SPECIMEN COLLECTION BY BRUSHING/ WASHING - FLEXI BLE N/A 06/06/2020 Performed by Bao Hernández MD at [facility] ANGIOGRAPHY CORONARY ARTERY WITH RIGHT AND LEFT HEART CATHETERIZATION N/A Performed by Higinio Clarke MD at [facility] RETURN CHECKER POSSIBLE PERCUTANEOUS CORONARY STENT PLACEMENT WITH ANGIOPLASTY N/A Performed by Higinio Clarke MD at [facility] RETURN CHECKER ESOPHAGOGASTRODUODENOSCOPY WITH SPECIMEN COLLECTION BY BRUSHING/ WASHING N/A 10/21/2020 Performed by Cosmo Gomez MD at [facility] SIGMOIDOSCOPY WITH CONTROL OF BLEEDING - FLEXIBLE N/A 10/21/2020 Performed by Cosmo Gomez MD at [facility] SIGMOIDOSCOPY WITH DIRECTED SUBMUCOSAL INJECTION - FLEXIBLE 10/21/2020 Performed by Cosmo Gomez MD at [facility] ESOPHAGOGASTRODUODENOSCOPY WITH CONTROL OF BLEEDING - FLEXIBLE N/A Performed by Bao Hernández MD at [facility] Medications Prior to Admission Medication [...] Take 75 mg by mouth twice daily. Flakita e with food.) 274 tablet 3 02/12/2021 [...] Labs: Pertinent labs reviewed Blair Greene MD CARPENTER documented in this encounter Miscellaneous Notes * Patient Education - Kayden Felix RN - 02/12/2021 4:00 PM FORM CARPENTER Dear Ms Davilakatie, Thank you for choosing [facility] Interventional Rad iology for your procedure. Your appointment information is listed below: Appointment Date: 02/12/202102/19, 02/26, 03/05, 03/12 and 03/19/2021 Appointment Time: 4PM 9AM Arrival Time: 3PM 8AM Location: [facility]: [address] [place] [address] Parking: available in the front of the [...] your care and activities after the procedure. CARPENTER * Patient Instructions - Claudia Crenshaw RN - 02/12/2021 3:09 PM FORM CARPENTER Images from the original note were not [...] to the procedu re performed at the [facility], call [phone] Friday-Friday from 7 -5p. After-hours and weekends, please call [phone] and ask for the [facility] Academic Computing Director on-call. You or your caregiver should call [phone] for any severe symptoms such as excessive bleeding, severe dizziness, trouble breathing or loss of consciousness. CARPENTER documented in this encounter Plan of Treatment Care Team Description Date Type Specialty Nithya Madison, ARTIST'S MODEL-CHIEF RISK OFFICER [address] [place], [place] [phone] Larry Tatum MD 4000 [facility] [address]nd [address] [place], [place] [phone] Jeanette Kingston RT(R)(),LRT 03/19/2021 Hospital Radiology Encounter Carlos Longo MD 4000 [facility] [address] [place], [place] [phone] [place] [address], [address] [place] [phone] Canceled (Patient-Personal) 03/22/2021 Hospital Radiology [place] [address], [address] [place] [phone] Nonrheumatic tricuspid valve regurgitati on 03/27/2021 Hospital Cardiology [place]counter [place] Al[place] [address], [address] [place] [phone] CATHETERIZATION RIGHT HEART 03/27/2021 Surgery Cardiology Date/Time Name Priority Associated Diagnose s 03/27/2021 9:05 AM FORM CARPENTER CATHETERIZATION RIGHT HEART Nonrheumatic tricuspid valve regurgitation documented as of this encounter Goals Goal Patient Associated Recent Progress Patient-Stat Aut hor Goal Type Problems ed? Improve [facility] On track (10/23/2020 Yes Sheldon, 1:06 PM CDT) CHRYSTAL Singh [facility] On track (12/25/2020 Yes Sheldon, 2:41 PM CDT) CHRYSTAL Singh Note: "To get better and stronger." documented as of this encounter Procedures Comments Procedure Name Priority Date/Time Associated Diag nosis IR PARACENTESIS Routine 02/12/2021 Chronic heart failure THERAPEUTIC 4:21 PM FORM CARPENTER with preserved ejec tion fraction (HCC) RVF (right ventricular failure) (HCC) Other cirrhosis of liver (HCC) documented in this encounter Results * IR PARACENTESIS THERAPEUTIC (02/12/2021 4:21 PM FORM CARPENTER) Modality Anatomical Region Laterality Ultrasound Specimen Impressions [facility] RESULTS - 02/12/2021 4:53 PM FORM CARPENTER 1. Successful ultrasound guided therap eutic paracentesis. Finalized by Blair Greene M.D. on 02/12/2021 4:53 PM. Dictated by Blair Greene M.D. on 02/12/2021 4:53 PM. Narrative [facility] RAD RESULTS - 02/12/2021 4:53 PM FORM CARPENTER Ultrasound-guided paracentesis CLINICAL INDICATION: Symptomatic ascites MEDICATIONS: 10 mL subcutaneous Lidocaine 2% WEB WORKER: Blair Greene M.D. TECHNIQUE: Transverse real time images were obtained through the abdomen. The risks and benefits of this procedure were discussed and informed written consent was obtained prior to performing the procedure. The abdomen was then prepped and draped in usual sterile fashion. Limited ultrasound of the abdomen was performed. Under ultrasound guidance, a 5 Samoan centesis needle was advanced into the peritoneal [...] ascites MEDICATIONS: 10 mL subcutaneous Lidocaine 2% WEB WORKER: Blair Greene M.D. TECHNIQUE: Transverse real time images were obtained through the abdomen. The risks and benefits of this procedure were discussed and informed written consent was obtained prior to performing the procedure. The abdomen was then prepped and draped in usual sterile fashion. Limited ultrasound of the abdomen was performed. Under ultrasound guidance, a 5 Samoan centesis needle was advanced into the peritoneal [...] ultrasound. IMPRESSION 1. Successful ultrasound guided therape utic paracentesis. Finalized by Blair Greene M.D. on [...] Medication Order MAR Action 02/12/2021 4:14 PM FORM CARPENTER 12.5 g albumin 25% injection Given - New INTRA-PROCEDURE MED(CONT), Starting on Bag Fri02/12/21 at 1607, Until Fri 1 at 1614 12.5 g Given - New Bag 02/12/2021 4:09 PM FORM CARPENTER 12.5 g Given - New Bag 02/12/2021 4:07 PM FORM CARPENTER documented in this encounter Active and Recently Administered Medications Times are shown in FORM CARPENTER. 02/11/2021 02/12/2021 Medication Order 02/10/2021 1607 (Given - New Bag - Provider: Alondra kwon RN)1609 (Given - New Bag - Provider: Alondra Augustin RN)1614 (Given - New Bag - Provider: Alondra Augustin RN) albumin 25% injection (COMPLETED) INTRA-PROCEDURE MED(CONT), Starting on 02/12/21 at 1607, Until Fri 1 at 1614 documented in this encounter Additional Health Concerns Noted Time Assessment 02/12/2021 3:04 PM FORM CARPENTER A fall risk assessment has been complet ed for the patient 12/07/2020 3:18 PM CDT PHQ-2 Depression Total Score: 2 documented as of this encounter Care Teams Start Date End Date Barrel Tester And Drainer Relationship Specialty 05/15/20 Garfield Gray MD PCP - [address] [address] 06/13/20 Riley Hopson MD Consulting Cardiovascul [address] Physician ar Disease [address] [place] [id number] 12/20/20 Gino Pandya, ARTIST'S MODEL-CHIEF RISK OFFICER Nurse Nurse [address] [place] [address] 01/19/21 Teri Brandon Continuum of Care Case Management documented as of this encounter
--- OUTSIDE RECORDS SUMMARY | 2021-03-14 10:44 | XMS REPORT | Encounter Summary ---
Author Author [facility] Organization [facility] Address Unknown Phone Unavailable Care Team Providers Care Scale Assembly Set Up Worker Name Role Phone Self, Garfield OLVERA PCP Riley Hopson MD [phone] Gino Pandya FIELD ASSISTANT-REPAIR SUPERVISOR [phone] Teri Brandon [phone] Unavailable Encounter Details Care Team Description Date Type Department 03/08/2021 Travel Social History Date Tobacco Use Types Packs/Day Years Used Never Smoker Smokeless Tobacco: Never Used Comments Alcohol Use Standard Drinks/Week Not Currently 0 (1 standard drink = 0.6 o z pure alcohol) Sex Assigned at Date Recorded Female 06/01/2020 1:44 PM TEST DRILLER Date Recorded COVID-19 Exposure Response 03/08/2021 7:56 AM TEST DRILLER In the last month, have you been [...] Team Description Date Type Specialty Nithya Madison, FIELD ASSISTANT-REPAIR SUPERVISOR [address] [place] [address] Larry Tatum MD 4000 [facility] 2nd Flr [place], [place] [phone] Jeanette Kingston, RT(R)(),LRT 03/19/2021 Hospital Radiology Encounter Carlos Longo MD 4000 [facility] [address] [place], [place] [phone] [place] [address], [address] [place] [phone] Canceled (Patient-Personal) 03/22/2021 Hospital Radiology [place]counter Jacob Almaraz MD [address], [address] [place] [phone] Nonrheumatic tricuspid valve regurgitati on 03/27/2021 Hospital Cardiology Encounter Jacob Almaraz [place] [address], [address] [place] [phone] CATHETERIZATION RIGHT HEART 03/27/2021 Surgery Cardiology Date/Time Name Priority Associated Diagnose s 03/27/2021 9:05 AM TEST DRILLER CATHETERIZATION RIGHT HEART Nonrheumatic tricuspid valve regurgitation documented as of this encounter Goals Goal Patient Associated Recent Progress Patient-Stat Aut hor Goal Type Problems ed? [facility] On track (10/23/2020 Yes Sheldon, 1:06 PM CDT) CHRYSTAL Singh [facility] On track (12/25/2020 Yes Sheldon, 2:41 PM CDT) CHRYSTAL Singh Note: "To get better and stronger." documented as of this encounter Visit Diagnoses Not on filedocumented in this encounter Additional Health Concerns Noted Time Assessment 03/08/2021 8:00 AM TEST DRILLER A fall risk assessment has been complet ed for the patient 12/07/2020 3:18 PM CDT PHQ-2 Depression Total Score: 2 documented as of this encounter Care Teams Start Date End Date Scale Assembly Set Up Worker Relationship Specialty 05/15/20 Garfield Gray MD PCP - [address] [address] 06/13/20 Riley Hopson MD Consulting Cardiovascul [address] Physician ar Disease [address] [place], [place] [address] 12/20/20 Gino Pandya, FIELD ASSISTANT-REPAIR SUPERVISOR Nurse Nurse [address] [place] [phone] 01/19/21 Teri Brandon Continuum of Care Case Management documented as of this encounter
--- OUTSIDE RECORDS SUMMARY | 2021-03-14 10:44 | XMS REPORT | Encounter Summary ---
Author Author [facility] Organization [facility] Address Unknown Phone Unavailable Care Team Providers Care Grounds Restoration Specialist Name Role Phone Self, Garfield OLVERA PCP Riley Hopson MD [phone] Gino Pandya [phone] Teri Brandon [phone] Unavailable Reason for Referral * Test (Routine) - Authorized Diagnoses / Procedures Referred By [facility] Severe tricuspid regurgitation Procedures TRANSESOPHAGEAL ECHO [place] ECHO TRANSESOPHAG R-T 2D W/PRB IMG ACQUISJ I&R KS DOP ECHOCARD COLOR FLOW VELOCITY MAPPING Mag Lozada APRN-NP 4000 [facility] [address] [place] [address] [facility] 4000 [facility], [address] [place] [address] Cardiology Referral ID Status Reason Start Date Expiration Visits Vi sits Date Requested Authorized [id number] Authorized 02/22/2021 02/22/[address] Encounter Details Care Team Description Date Type Department Aarti Mars RN Severe tricuspid regurgitation (Primary Dx) 02/22/2021 Pre-Admit Cardiology: Center for Orders Only [facility] [address] [facility], [address] [place] [address] Social History Date Tobacco Use Types Packs/Day Years Used Never Smoker Smokeless Tobacco: Never Used Comments Alcohol Use Standard Drinks/Week Not Currently 0 (1 standard drink = 0.6 o z pure alcohol) Sex Assigned at Date Recorded Female 06/01/2020 1:44 PM DEMOLITION HAMMER OPERATOR Date Recorded COVID-19 Exposure Response 02/19/2021 7:52 AM DEMOLITION HAMMER OPERATOR In the last month, have you [...] Team Description Date Type Specialty Nithya Madison, LEAN FACILITATOR-HELMINTHOLOGIST [address] [place] [address] Larry Tatum MD 4000 [facility] 2nd [place] [address] Jeanette Kingston, RT(R)(),LRT 03/19/2021 Hospital Radiology Encounter Carlos Longo MD 4000 [facility] [id number] [place] [address] [place] [address], [address] [place] [phone] Canceled (Patient-Personal) 03/22/2021 Hospital Radiology Encounter Jacob Almaraz MD [address], [address] [place] [address] Nonrheumatic tricuspid valve regurgitati on 03/27/2021 Hospital Cardiology Encounter Jacob Almaraz [place] [address], [address] [place] [address] CATHETERIZATION RIGHT HEART 03/27/2021 Surgery Cardiology Order Schedule Name Type Priority Associated Diag noses Expected: 03/27/2021, Expires: TRANSESOPHAGEAL ECHO ECHO Routine Severe tr icuspid regurgitation Date/Time Name Priority Associated Diagnose s 03/27/2021 9:05 AM DEMOLITION HAMMER OPERATOR CATHETERIZATION RIGHT HEART Nonrheumatic tricuspid valve regurgitation documented as of this encounter Goals Goal Patient Associated Recent Progress Patient-Stat Aut hor Goal Type Problems ed? Improve [facility] On track (10/23/2020 Yes Sheldon, 1:06 PM CDT) CHRYSTAL Singh [facility] On track (12/25/2020 Yes Sheldon, 2:41 PM CDT) CHRYSTAL Singh Note: "To get better and stronger." documented as of this encounter Visit Diagnoses Diagnosis Severe tricuspid regurgitation - Primar y Diseases of tricuspid valve Nonrheumatic tricuspid valve regurgitat ion Tricuspid valve disorders, specified as nonrheumatic documented in this encounter Additional Health Concerns Noted Time Assessment 02/19/2021 8:13 AM DEMOLITION HAMMER OPERATOR A fall risk assessment has been complet ed for the patient 12/07/2020 3:18 PM CDT PHQ-2 Depression Total Score: 2 documented as of this encounter Care Teams Start Date End Date Grounds Restoration Specialist Relationship Specialty 05/15/20 Garfield Gray MD PCP - General [address] [place] [address] 06/13/20 Riley Hopson MD Consulting Cardiovascul [address] Physician ar Disease [address] [place] [id number] 12/20/20 Gino Pandya, LEAN FACILITATOR-HELMINTHOLOGIST Nurse Nurse 4000 [facility] Practitioner Practitioner [facility] , [place] [address] 01/19/21 Teri Brandon Continuum of Care Case Management documented as of this encounter
--- OUTSIDE RECORDS SUMMARY | 2021-03-14 10:44 | XMS REPORT | Encounter Summary ---
Author Author [facility] Organization [facility] Address Unknown Phone Unavailable Care Team Providers Care Service Dispatcher Name Role Phone Self, Garfield OLVERA PCP Riley Hopson MD [phone] Gino Pandya PIG FARMER-NURSE TRANSITION [phone] Teri Brandon [phone] Unavailable Reason for Referral * Radiology Services (Routine) - Authorized Diagnoses / Procedures Referred By Contact Referred To Conta ct Specialty Diagnoses Chronic heart failure with preserved ejection fraction (HCC) RVF (right ventricular failure) (HCC) Other cirrhosis of liver (HCC) Procedures IR PARACENTESIS THERAPEUTIC Carlos Longo MD [address] [address] [place] [place] [address] [place] [address] Radiology Referral ID Status Reason Start Date Expiration Visits Vi sits Date Requested Authorized [id number] Authorized 01/22/2021 01/22/2022 20 20 [employer] Reason for Visit * Radiology Services (Routine) - Authorized Diagnoses / Procedures Referred By Contact Referred To Conta ct Specialty Diagnoses Chronic heart failure with preserved ejection fraction (HCC) RVF (right ventricular failure) (HCC) Other cirrhosis of liver (HCC) Procedures IR PARACENTESIS THERAPEUTIC Carlos Longo MD [address] [place] [address] [place] [place] [address] [place] [address] Radiology Referral ID Status Reason Start Date Expiration Visits Vi sits Date Requested Authorized [id number] Authorized 01/22/2021 01/22/2022 20 20 Encounter Details Care Team Description Date [place] [address], [address] [place] [phone] Jeanette Kingston, RT(R)(),LRT Heena Lundy RN Chronic heart failure with preserved eje ction fraction (HCC) 03/05/2021 Hospital Interventional Radi ology: Encounter Calcium [facility] [address] [place] [id number] Social History Date Tobacco Use Types Packs/Day Years Used Never Smoker Smokeless Tobacco: Never Used Comments Alcohol Use Standard Drinks/Week Not Currently 0 (1 standard drink = 0.6 o z pure alcohol) Sex Assigned at Date Recorded Female 06/01/2020 1:44 PM [employer] Date Recorded COVID-19 Exposure Response 03/05/2021 8:08 AM [employer] In the last month, have you been in contact with No / Unsure someone who was confirmed or suspected to have Coronavirus / COVID-19? documented as of this encounter Last Filed Vital Signs Reading Time Taken Comments Vital Sign 112/68 03/05/2021 9:57 AM [employer] Blood Pressure - - Pulse 36.5 C (97.7 F) 03/05/2021 8:14 AM [employer] Temperature - - Respiratory Rate 95% 03/05/2021 9:57 AM [employer] Oxygen Saturation - - Inhaled Oxygen Concentration 55.8 kg (123 lb) 03/05/2021 8:14 AM [employer] Weight 157.5 cm (5' 2") 03/05/2021 8:14 AM [employer] Height 22.5 03/05/2021 8:14 AM [employer] Body Mass Index documented in this encounter [...] Willow Sue RN - 03/05/2021 10:04 AM [employer] INR; 6.3. RN notified by the lab at this time. [employer] documented in this encounter H&P Notes * Ruddy Connelly MD - 03/05/2021 8:41 AM [employer] Pre Procedure History and Physical/Sedation Plan Procedure [...] obtained Consults: Not obtained Ruddy Connelly MD [employer] documented in this encounter Miscellaneous Notes * Patient Instructions - Willow Sue RN - 03/05/2021 8:10 AM [employer] Images from the original note were not [...] to the procedu re performed at the [facility], call [phone] Friday-Friday from 7 -5p. After-hours and weekends, please call [phone] and [facility] Costume Director on-[facility]. You or your caregiver should call [phone] for any severe symptoms such as excessive bleeding, severe dizziness, trouble breathing or loss of consciousness. [employer] documented in this encounter Plan of Treatment Care Team Description Date Type Specialty Nithya Madison, PIG FARMER-NURSE TRANSITION [address] [place], [place] [phone] Larry Tatum MD [address] [place] [address] Jeanette Kingston RT(R)(),LRT 03/19/2021 Hospital Radiology Encounter Carlos Longo MD [address] [place] [address] [place] [address], [address] [place] [phone] Canceled (Patient-Personal) 03/22/2021 Hospital Radiology Encounter Jacob Almaraz [address], [address] [place] [phone] Nonrheumatic tricuspid valve regurgitati on 03/27/2021 Hospital Cardiology Encounter Jacob Almaraz MD [address], [address] [place] [phone] CATHETERIZATION RIGHT HEART 03/27/2021 Surgery Cardiology Date/Time Name Priority Associated Diagnose s 03/27/2021 9:05 AM [employer] CATHETERIZATION RIGHT HEART Nonrheumatic tricuspid valve regurgitation documented as of this encounter Goals Goal Patient Associated Recent Progress Patient-Stat Aut hor Goal Type Problems ed? [facility] On track (10/23/2020 Yes Sheldon, 1:06 PM CDT) CHRYSTAL Singh [facility] On track (12/25/2020 Yes Sheldon, 2:41 PM CDT) CHRYSTAL Singh Note: "To get better and stronger." documented as of this encounter Procedures Comments Procedure Name Priority Date/Time Associated Diag nosis IR PARACENTESIS Routine 03/05/2021 Chronic heart failure THERAPEUTIC 9:32 AM [employer] with preserved ejec tion fraction (HCC) RVF (right ventricular failure) (HCC) Other cirrhosis of liver (HCC) HC PT(INR) Routine 03/05/2021 Chronic heart f ailure 8:28 AM [employer] with preserved ejection fraction (HCC) documented in this encounter Results * IR PARACENTESIS THERAPEUTIC (03/05/2021 9:32 AM [employer]) Modality Anatomical Region Laterality Ultrasound Specimen Impressions [facility] RESULTS - 03/05/2021 4:20 PM [employer] IMPRESSION: Successful ultrasound guided paracentesis with removal of 3.6 liters of fluid. Ruddy Toribio M.D., the attending radiologist, was present for the procedure, personally reviewed the images, and formulated the interpretations and opinions expressed in this report. @TT Finalized by RUDDY CONNELLY on 03/05/2021 4:20 PM. Dictated by RUDDY CONNELLY on 03/05/2021 4:19 PM. Narrative [facility] RESULTS - 03/05/2021 4:20 PM [employer] Reason for exam: Paracentesis, ascites. Operators: Ruddy [...] lidocaine was used for local anesthesia. A [id number]-V-Yusilwha needle was inserted into the abdomen, with [...] lidocaine was used for local anesthesia. A Sie-W-Cjplqnzx needle was inserted into the abdomen, with [...] (ABNORMAL) PROTIME INR (PT) (03/05/2021 8:28 AM [employer]) INR 6.3 (HH) 0.8 - 1.2 [facility] Comment: CRITICAL VALUE CALLED TO AND READ BACK BY/TIME/TECH CHRYSTAL SUE at 03/05/2021 12:47:06 by 32 Specimen Blood Performing Organization Address City/State/ZIP Code P shane Number [facility] [address] [place] [address] documented in this encounter Visit Diagnoses Diagnosis Chronic heart failure with preserved ej ection fraction (HCC) RVF (right ventricular failure) (HCC) Congestive heart failure, unspecified Other cirrhosis of liver (HCC) Nonrheumatic tricuspid valve regurgitat ion Tricuspid valve disorders, specified as nonrheumatic documented in this encounter Administered Medications Action Date Dose Rate Site Medication Order MAR Action 03/05/2021 9:13 AM [employer] 12.5 g albumin 25% injection Given - New INTRA-PROCEDURE MED(CONT), Starting on Bag Fri03/05/21 at 0907, Until Fri 1 at 0913 12.5 g Given - New Bag 03/05/2021 9:07 AM [employer] documented in this encounter Active and Recently Administered Medications Times are shown in [employer]. 03/04/2021 03/05/2021 Medication Order 03/03/2021 0907 (Given - New Bag - Provider: Sanjuana Lundy RN)0913 (Given - New Bag - Provider: Heena Lundy RN) albumin 25% injection (COMPLETED) INTRA-PROCEDURE MED(CONT), Starting on Fri03/05/21 at 0907, Until Fri 1 at 0913 documented in this encounter Additional Health Concerns Noted Time Assessment 03/05/2021 8:16 AM [employer] A fall risk assessment has been complet ed for the patient 12/07/2020 3:18 PM CDT PHQ-2 Depression Total Score: 2 documented as of this encounter Care Teams Start Date End Date Service Dispatcher Relationship Specialty 05/15/20 Garfield Gray MD PCP - [address] [address] 06/13/20 Riley Hopson MD Consulting Cardiovascul [address] Physician ar Disease [address] [place] [address] 12/20/20 Gino Pandya, PIG FARMER-NURSE TRANSITION Nurse Nurse [address] [place] [phone] 01/19/21 Teri Brandon Continuum of Care Case Management documented as of this encounter
--- OUTSIDE RECORDS SUMMARY | 2021-03-14 10:44 | XMS REPORT | Encounter Summary ---
Author Author [facility] Organization [facility] Address Unknown Phone Unavailable Care Team Providers Care Plant Taxonomist Name Role Phone Self, Garfield OLVERA PCP Riley Hopson MD [phone] iGno Pandya MECHANICAL CAD DRAFTER-DOOR OPERATOR [phone] Teri Brandon [phone] Unavailable Reason for Visit * Reason Comments Precertification Medicare Encounter Details Care Team Description Date Type Department Reagan Edgar RN Precertification (Medicare) 03/06/2021 Documentation Cardiology: [facility] 4000 [facility], [address] [place] [address] Social History Date Tobacco Use Types Packs/Day Years Used Never Smoker Smokeless Tobacco: Never Used Comments Alcohol Use Standard Drinks/Week Not Currently 0 (1 standard drink = 0.6 o z pure alcohol) Sex Assigned at Date Recorded Female 06/01/2020 1:44 PM MULTIMEDIA COORDINATOR Date Recorded COVID-19 Exposure Response 03/05/2021 8:08 AM MULTIMEDIA COORDINATOR In the last month, have you [...] Reagan Edgar RN - 03/06/2021 11:27 AM MULTIMEDIA COORDINATOR Medicare is listed as patient's primary insurance coverage. Pre-certification i s not required for hospitalizations. IMEDIA COORDINATOR documented in this encounter Plan of Treatment Care Team Description Date Type Specialty Nithya Madison, MECHANICAL CAD DRAFTER-DOOR OPERATOR [address] [place] [address] Larry Tatum MD [address] [place] [address] Jeanette Kingston RT(R)(),LRT 03/19/2021 [facility] Radiology Encounter Carlos Longo MD 4000 [facility] [address] [place] [address] [place] [address], [address] [place] [address] Canceled (Patient-Personal) 03/22/2021 [facility] Radiology Encounter Jacob Almaraz [address], [address] [place] [phone] Nonrheumatic tricuspid valve regurgitati on 03/27/2021 Hospital Cardiology Encounter Jacob Almaraz MD [address], [address] [place] [address] CATHETERIZATION RIGHT HEART 03/27/2021 Surgery Cardiology Date/Time Name Priority Associated Diagnose s 03/27/2021 9:05 AM MULTIMEDIA COORDINATOR CATHETERIZATION RIGHT HEART Nonrheumatic tricuspid valve regurgitation documented as of this encounter Goals Goal Patient Associated Recent Progress Patient-Stat Aut hor Goal Type Problems ed? [facility] On track (10/23/2020 Yes Sheldon, 1:06 PM CDT) CHRYSTAL Singh [facility] On track (12/25/2020 Yes Sheldon, 2:41 PM CDT) CHRYSTAL Singh Note: "To get better and stronger." documented as of this encounter Visit Diagnoses Not on filedocumented in this encounter Additional Health Concerns Noted Time Assessment 03/05/2021 8:16 AM MULTIMEDIA COORDINATOR A fall risk assessment has been complet ed for the patient 12/07/2020 3:18 PM CDT PHQ-2 Depression Total Score: 2 documented as of this encounter Care Teams Start Date End Date Plant Taxonomist Relationship Specialty 05/15/20 Garfield Gray MD PCP - [address] [address] 06/13/20 Riley Hopson MD Consulting Cardiovascul [address] Physician ar Disease [address] [place], [place] [phone] 12/20/20 Gino Pandya, MECHANICAL CAD DRAFTER-DOOR OPERATOR Nurse Nurse [address] [address] 01/19/21 Teri Brandon Continuum of Care Case Management documented as of this encounter
--- OUTSIDE RECORDS SUMMARY | 2021-03-14 10:44 | XMS REPORT | Encounter Summary ---
Author Author [facility] Organization [facility] Address Unknown Phone Unavailable Care Team Providers Care Electric Trucker Name Role Phone Self, Garfield OLVERA PCP Riley Hopson MD [phone] Gino Pandya INTERNET MARKETER-REFINERY OPERATOR [employer] [phone] Teri Brandon [phone] Unavailable Reason for Visit * Reason Onset Date Comments Appointment Request 03/05/2021 Encounter Details Care Team Description Date Type Department Allison Marti MD 4000 [facility] [id number] [place], [place] [phone] Appointment Request 03/05/2021 Telephone Transplant: Main Rachael coto, [facility] 4000 [facility] [address], [address] [place] [address] Social History Date Tobacco Use Types Packs/Day Years Used Never Smoker Smokeless Tobacco: Never Used Comments Alcohol Use Standard Drinks/Week Not Currently 0 (1 standard drink = 0.6 o z pure alcohol) Sex Assigned at Date Recorded Female 06/01/2020 1:44 PM DISTRICT PLANT SUPERINTENDENT Date Recorded COVID-19 Exposure Response 03/08/2021 7:56 AM DISTRICT PLANT SUPERINTENDENT In the last month, have you been [...] - Adriana Gallegos - 03/05/2021 11:50 AM DISTRICT PLANT SUPERINTENDENT Received an Internal new patient referral on this estab pt. Dr Enrrique Longo ref erred to Dr Miller-yet pt is estab with Figueroa/Radha. I will close the referral a n assume she will just need a return appt. RICT PLANT SUPERINTENDENT documented in this encounter Plan of Treatment Care Team Description Date Type Specialty Nithya Madison, INTERNET MARKETER-REFINERY OPERATOR [employer] [address] [place] [address] Larry Tatum MD [address] [place] [address] Jeanette Kingston, RT(R)(),LRT 03/19/2021 Hospital Radiology Encounter Carlos Longo MD 4000 [facility] [address] [place] [address] [place] [address], [address] [place] [phone] Canceled (Patient-Personal) 03/22/2021 Hospital Radiology [place]counter Jacob Almaraz [place] [address], [address] [place] [address] Nonrheumatic tricuspid valve regurgitati on 03/27/2021 Hospital Cardiology Encounter Jacob Almaraz MD [address], [address] [place] [phone] CATHETERIZATION RIGHT HEART 03/27/2021 Surgery Cardiology Date/Time Name Priority Associated Diagnose s 03/27/2021 9:05 AM DISTRICT PLANT SUPERINTENDENT CATHETERIZATION RIGHT HEART Nonrheumatic tricuspid valve regurgitation documented as of this encounter Goals Goal Patient Associated Recent Progress Patient-Stat Aut hor Goal Type Problems ed? Improve [facility] On track (10/23/2020 Yes Sheldon, 1:06 PM CDT) CHRYSTAL Singh [facility] On track (12/25/2020 Yes Sheldon, 2:41 PM CDT) CHRYSTAL Singh Note: "To get better and stronger." documented as of this encounter Visit Diagnoses Not on filedocumented in this encounter Additional Health Concerns Noted Time Assessment 03/05/2021 8:16 AM DISTRICT PLANT SUPERINTENDENT A fall risk assessment has been complet ed for the patient 12/07/2020 3:18 PM CDT PHQ-2 Depression Total Score: 2 documented as of this encounter Care Teams Start Date End Date Electric Trucker Relationship Specialty 05/15/20 Garfield Gray MD PCP - [address] [phone] 06/13/20 Riley Hopson MD Consulting Cardiovascul [address] Physician ar Disease [address] [place] [address] 12/20/20 Gino Pandya, INTERNET MARKETER-REFINERY OPERATOR [employer] Nurse Nurse [address] [address] 01/19/21 Teri Brandon Continuum of Care Case Management documented as of this encounter
--- OUTSIDE RECORDS SUMMARY | 2021-03-14 10:44 | XMS REPORT | Encounter Summary ---
Author Author [facility] Organization [facility] Address Unknown Phone Unavailable Care Team Providers Care Resistor Winder Name Role Phone Self, Garfield OLVERA PCP Riley Hopson MD [phone] Gino Pandya MANAGER LSW-BRANCH CHIEF [phone] Teri Brandon [phone] Unavailable Reason for Referral * Radiology Services (Routine) - Authorized Diagnoses / Procedures Referred By Contact Referred To Conta ct Specialty Diagnoses Chronic heart failure with preserved ejection fraction (HCC) RVF (right ventricular failure) (HCC) Other cirrhosis of liver (HCC) Procedures IR PARACENTESIS THERAPEUTIC Carlos Longo MD [address] [address] [address] [place] [address] [place] [address] Radiology Referral ID Status Reason Start Date Expiration Visits Vi sits Date Requested Authorized [id number] Authorized 01/22/2021 01/22/2022 20 20 URERS Reason for Visit * Radiology Services (Routine) - Authorized Diagnoses / Procedures Referred By Contact Referred To Conta ct Specialty Diagnoses Chronic heart failure with preserved ejection fraction (HCC) RVF (right ventricular failure) (HCC) Other cirrhosis of liver (HCC) Procedures IR PARACENTESIS THERAPEUTIC Carlos Longo MD [address] [place] [address] [address] [place] [address] Radiology Referral ID Status Reason Start Date Expiration Visits Vi sits Date Requested Authorized [id number] Authorized 01/22/2021 01/22/2022 20 20 Encounter Details Care Team Description Date Type Department Karsten Griffiths MD [facility] [address] [phone] Shruthi Davey, RT(R)(),LRT Claudia Crenshaw RN Chronic heart failure with preserved eje ction fraction (HCC) 03/02/2021 Hospital Interventional Radi ology: Encounter Maritza [facility] [address] [place] [address] Social History Date Tobacco Use Types Packs/Day Years Used Never Smoker Smokeless Tobacco: Never Used Comments Alcohol Use Standard Drinks/Week Not Currently 0 (1 standard drink = 0.6 o z pure alcohol) Sex Assigned at Date Recorded Female 06/01/2020 1:44 PM LABOURERS Date Recorded COVID-19 Exposure Response 03/02/2021 2:50 PM LABOURERS In the last month, have you been in contact with No / Unsure someone who was confirmed or suspected to have Coronavirus / COVID-19? documented as of this encounter Last Filed Vital Signs Reading Time Taken Comments Vital Sign 110/71 03/02/2021 4:45 PM LABOURERS Blood Pressure - - Pulse 36.8 C (98.2 F) 03/02/2021 3:12 PM LABOURERS Temperature - - Respiratory Rate 96% 03/02/2021 4:45 PM LABOURERS Oxygen Saturation - - Inhaled Oxygen Concentration 60.6 kg (133 lb 9.6 oz) 03/02/2021 3:12 PM LABOURERS Weight 157.5 cm (5' 2") 03/02/2021 3:12 PM LABOURERS Height 24.44 03/02/2021 3:12 PM LABOURERS Body Mass Index documented in this encounter [...] Brigitte Hinojosa RN - 03/02/2021 4:00 PM LABOURERS Interventional Radiology Outpatient Scheduling Checklist 1. Name of Procedure(s): Paracentesis 2. Date of Procedure: 03/02/2021 3. Arrival Time: 1500 4. Procedure Time: 1600 5. Correct [facility] Blood Thinners Triaged and instructed per protocol: Y/N/NA: NA Confirmed accurate instructions sent to patient: Y/N: NA 7. Procedure Order Verified: Y/N: Yes 9. Patient instructed to have a regional refrigerated cdl truck driver: Y/N/NA: Yes 10. Patient instructed on [...] electronic procedure instructions: Y/N: Yes; my chart URERS documented in this encounter H&P Notes * Karsten Griffiths MD - 03/02/2021 4:00 PM LABOURERS Pre Procedure History and Physical/Sedation Plan-OP Procedure Date: 03/02/2021 Planned Procedure(s): Para Indication: ascites Chief Complaint: above History of Present Illness: Zaria Paulson is a 61 y.o. female. Patient Active Problem List Diagnosis Date Noted Fall 2021 Acute kidney injury superimposed on CKD ([facility]) 01/02/2021 Severe malnutrition ([facility]) 12/27/2020 Severe sepsis ([facility]) 12/22/2020 Acute on chronic diastolic (congestive) heart failure ([facility]) 12/10/2020 RVF (right ventricular failure) ([facility]) 11/30/2020 Hyponatremia 11/30/2020 Acute on chronic heart failure ([facility]) 11/29/2020 Hematoma of left flank 11/15/2020 Hematoma of right flank 11/15/2020 Hematuria 11/15/2020 Nontraumatic rectus hematoma 11/04/2020 Hypoalbuminemia 10/23/2020 LEONORA (acute kidney injury) ([facility]) 10/21/2020 GI bleeding 10/20/2020 Cirrhosis ([facility]) 09/07/2020 Non-ischemic cardiomyopathy ([facility]) 09/07/2020 Paroxysmal atrial fibrillation ([facility]) 09/07/2020 Stage 3b chronic kidney disease ([facility]) 09/07/2020 Atrial tachycardia ([facility]) 09/07/2020 Iron deficiency anemia 08/03/2020 [...] 06/06/2020 Performed by Bao Hernández MD at [facility] COLONOSCOPY DIAGNOSTIC WITH SPECIMEN COLLECTION BY BRUSHING/ WASHING - FLEXI BLE N/A 06/06/2020 Performed by Bao Hernández MD at [facility] ANGIOGRAPHY CORONARY ARTERY WITH RIGHT AND LEFT HEART CATHETERIZATION N/A Performed by Higinio Clarke MD at [facility] DEBURRER MACHINE POSSIBLE PERCUTANEOUS CORONARY STENT PLACEMENT WITH ANGIOPLASTY N/A Performed by Higinio Clarke MD at [facility] DEBURRER MACHINE ESOPHAGOGASTRODUODENOSCOPY WITH SPECIMEN COLLECTION BY BRUSHING/ WASHING N/A 10/21/2020 Performed by Cosmo Gomez MD at [facility] ENDO SIGMOIDOSCOPY WITH CONTROL OF BLEEDING - FLEXIBLE N/A 10/21/2020 Performed by Cosmo Gomez MD at [facility] ENDO SIGMOIDOSCOPY WITH DIRECTED SUBMUCOSAL INJECTION - FLEXIBLE 10/21/2020 Performed by Cosmo Gomez MD at [facility] ENDO ESOPHAGOGASTRODUODENOSCOPY WITH CONTROL OF BLEEDING - FLEXIBLE N/A Performed by Bao Hernández MD at [facility] (Not in a hospital admission) No [...] Diagnostic Tests: Labs: No pertinent labs Karsten rGiffiths MD Pager URERS documented in this encounter Procedure Notes * Karsten Griffiths MD - 03/02/2021 3:59 PM LABOURERS Immediate Post Procedure Note Date: 03/02/2021 Attending Physician: Sussy Griffiths Woods Manager(s): Shruthi Procedure(s): para Indications: ascites Findings: above Anesthesia: Local 5 mL 1% lidocaine without epinephrine Sedation/Medication Plan: Other Time out performed: Consent obtained, correct patient verified, correct procedur e verified, correct site verified, patient marked as necessary. Estimated Blood Loss: None/Negligible Specimen(s) Removed/Disposition: None Complications: None Comments: Karsten Griffiths MD URERS documented in this encounter Miscellaneous Notes * Patient Education - Brigitte Hinojosa RN - 03/02/2021 4:00 PM LABOURERS Dear Ms. Paulson, Thank you for choosing [facility] Interventional Rad iology for your procedure. Your appointment information is listed below: Appointment Date: 03/02/21 Appointment Time: 4:00 PM Arrival Time: 3:00 PM Location: [facility]: [address] [place] [address] Parking: available in the front of the building [facility] INTER[facility]IONAL RADIOLOGY PRE-PROCEDURE INSTRUCTIONS LOCAL You are [...] your care and activities after the procedure. URERS * Patient Instructions - Alondra Augustin RN - 03/02/2021 2:55 PM LABOURERS Images from the original note were not [...] to the procedu re performed at the [place] Location, call [phone] Friday-Friday from 7 -5p. After-hours and weekends, please call [phone] and ask for the [facility] Director Market Research on-call. You or your caregiver should call [phone] for any severe symptoms such as excessive bleeding, severe dizziness, trouble breathing or loss of consciousness. URERS documented in this encounter Plan of Treatment Care Team Description Date Type Specialty Nithya Madison, MANAGER LSW-BRANCH CHIEF [address] [place] [address] Larry Tatum MD [address] [place] [address] Jeanette Kingston, RT(R)(),LRT 03/19/2021 [facility] Radiology Encounter Carlos Longo MD 4000 [facility] [id number] [place] [address] [place] [address], [address] [place] [phone] Canceled (Patient-Personal) 03/22/2021 [facility] Radiology Encounter Jacob Almaraz [place] [address], [address] [place] [phone] Nonrheumatic tricuspid valve regurgitati on 03/27/2021 Hospital Cardiology Encounter Jacob Al[place] [address], [address] [place] [phone] CATHETERIZATION RIGHT HEART 03/27/2021 Surgery Cardiology Date/Time Name Priority Associated Diagnose s 03/27/2021 9:05 AM LABOURERS CATHETERIZATION RIGHT HEART Nonrheumatic tricuspid valve regurgitation documented as of this encounter Goals Goal Patient Associated Recent Progress Patient-Stat Aut hor Goal Type Problems ed? Improve [facility] On track (10/23/2020 Yes Sheldon, 1:06 PM CDT) CHRYSTAL Singh [facility] On track (12/25/2020 Yes Sheldon, 2:41 PM CDT) CHRYSTAL Singh Note: "To get better and stronger." documented as of this encounter Procedures Comments Procedure Name Priority Date/Time Associated Diag nosis IR PARACENTESIS Routine 03/02/2021 Chronic heart failure THERAPEUTIC 4:19 PM LABOURERS with preserved ejec tion fraction (HCC) RVF (right ventricular failure) (HCC) Other cirrhosis of liver (HCC) HC CBC W/ AUTOMATED DIFF Routine 03/02/2021 Chron ic heart failure 3:24 PM LABOURERS with preserved ejection fraction (HCC) Other cirrhosis of liver (HCC) HC COMPREHENSIVE Routine 03/02/2021 Chronic heart failure METABOLIC PANEL 3:24 PM LABOURERS with preserved ejec tion fraction (HCC) Other cirrhosis of liver (HCC) documented in this encounter Results * IR PARACENTESIS THERAPEUTIC (03/02/2021 4:19 PM LABOURERS) Modality Anatomical Region Laterality Ultrasound Specimen Impressions [facility] RESULTS - 03/02/2021 4:31 PM LABOURERS IMPRESSION: Ultrasound guided paracentesis with removal of 6.2 liters of fluid. IKarsten M.D., the attending radiologist, was present for the procedure, personally reviewed the images, and formulated the interpretations and opinions expressed in this report. @TT Finalized by Karsten Griffiths M.D. on 03/02/2021 4:31 PM. Dictated by Karsten Griffiths M.D. on 03/02/2021 4:31 PM. Narrative [facility] RESULTS - 03/02/2021 4:31 PM LABOURERS Exam: Ultrasound-guided paracentesis. History: Ascites. Technique: After obtaining informed written consent the patient was placed supine on the procedure table. Using ultrasound guidance, an appropriate insertion site in the right lower quadrant was marked. The patient was prepped and draped in the usual sterile fashion. Lidocaine was used for local anesthesia. A Aom-S-Nvjrmkcj needle was inserted into the abdomen, with [...] Lidocaine was used for local anesthesia. A Hlj-A-Lovdleqh needle was inserted into the abdomen, with [...] (ABNORMAL) CBC AND DIFF (03/02/2021 3:24 PM LABOURERS) White Blood 4.6 4.5 - 11.0 K/UL [...] Count Specimen Blood (substance) Performing Organization Address City/[facility]/ZIP Code P shane Number [facility] [address] [place] [address] * (ABNORMAL) COMPREHENSIVE METABOLIC PANEL (03/02/2021 3:24 PM LABOURERS) Sodium 130 (L) 137 - 147 MMOL/L [...] (L) >60 mL/min [facility] Comment: Italian The eGFR is not validated f or use in drug dosing adjustments. Continue to use estimated creatinine clearance per dosing reference text. Please contact the Clinical Pharmacist for questions. eGFR 56 (L) >60 mL/min [facility] Italian Comment: The eGFR is not validated for use in drug dosing adjustments. Continue to use estimated creatinine clearance per dosing reference text. Please contact the Clinical Pharmacist for questions. Specimen Blood (substance) Performing Organization Address City/[facility]/ZIP Code P shane Number [facility] [address] [place] [address] documented in this encounter Visit Diagnoses Diagnosis Chronic heart failure with preserved ej ection fraction (HCC) RVF (right ventricular failure) (HCC) Congestive heart failure, unspecified Other cirrhosis of liver (HCC) Nonrheumatic tricuspid valve regurgitat ion Tricuspid valve disorders, specified as nonrheumatic documented in this encounter Administered Medications Action Date Dose Rate Site Medication Order MAR Action 03/02/2021 4:14 PM LABOURERS 12.5 g albumin 25% injection Given - New INTRA-PROCEDURE MED(CONT), Starting on Bag Fri03/02/21 at 1606, Until Fri 1 at 1614 12.5 g Given - New Bag 03/02/2021 4:09 PM LABOURERS 12.5 g Given - New Bag 03/02/2021 4:06 PM LABOURERS documented in this encounter Active and Recently Administered Medications Times are shown in LABOURERS. 03/01/2021 03/02/2021 Medication Order 02/28/2021 1606 (Given - New Bag - Provider: Claudia Crenshaw, CHRYSTAL)1609 (Given - New Bag - Provider: Claudia Crenshaw RN)1614 (Given - New Bag - Provider: Claudia Crenshaw RN) albumin 25% injection (COMPLETED) INTRA-PROCEDURE MED(CONT), Starting on 03/02/21 at 1606, Until Fri 1 at 1614 documented in this encounter Additional Health Concerns Noted Time Assessment 03/02/2021 3:11 PM LABOURERS A fall risk assessment has been complet ed for the patient 12/07/2020 3:18 PM CDT PHQ-2 Depression Total Score: 2 documented as of this encounter Care Teams Start Date End Date Resistor Winder Relationship Specialty 05/15/20 Garfield Gray MD PCP - [address] [phone] 06/13/20 Riley Hopson MD Consulting Cardiovascul [address] Physician ar Disease [address] [place], [place] [address] 12/20/20 Gino Pandya, MANAGER LSW-BRANCH CHIEF Nurse Nurse [address] [place] [address] 01/19/21 Teri Brandon Continuum of Care Case Management documented as of this encounter
--- OUTSIDE RECORDS SUMMARY | 2021-03-14 10:44 | XMS REPORT | Encounter Summary ---
Author Author [facility] Organization [facility] Address Unknown Phone Unavailable Care Team Providers Care Carpet Inspector Name Role Phone Self, Garfield OLVERA PCP Riley Hopson MD [phone] Gino Pandya APRN-SENIOR SECURITY ANALYST [phone] Teri Brandon [phone] Unavailable Reason for Visit * Reason Comments Anticoagulation INR 6.3 Encounter Details Care Team Description Date Type Department Josi Purvis BSN Anticoagulation (INR 6.3) 03/05/2021 Anticoagulation Cardiology: [facility] [address] [place] [address] [address], [address] [place] [address] Social History Date Tobacco Use Types Packs/Day Years Used Never Smoker Smokeless Tobacco: Never Used Comments Alcohol Use Standard Drinks/Week Not Currently 0 (1 standard drink = 0.6 o z pure alcohol) Sex Assigned at Date Recorded Female 06/01/2020 1:44 PM AWS DEVELOPER Date Recorded COVID-19 Exposure Response 03/05/2021 8:08 AM AWS DEVELOPER In the last month, have you [...] Team Description Date Type Specialty Nithya Madison, PHYSIOGNOMIST-SENIOR SECURITY ANALYST [address] [place] [address] Larry Tatum MD 4000 [facility] 2nd Flr [place], [place] [phone] Jeanette Kingston RT(R)(),LRT 03/19/2021 Hospital Radiology Encounter Carlos Longo MD 4000 [facility] UHA[address]21 [place], [place] [phone] [place] [address], [address] [place] [phone] Canceled (Patient-Personal) 03/22/2021 Hospital Radiology Encounter Jacob Almaraz [place] [address], [address] [place] [phone] Nonrheumatic tricuspid valve regurgitati on 03/27/2021 Hospital Cardiology Encounter Jacob Al[place]az [place] [address], [address] [place] [phone] CATHETERIZATION RIGHT HEART 03/27/2021 Surgery Cardiology Date/Time Name Priority Associated Diagnose s 03/27/2021 9:05 AM AWS DEVELOPER CATHETERIZATION RIGHT HEART Nonrheumatic tricuspid valve regurgitation documented as of this encounter Goals Goal Patient Associated Recent Progress Patient-Stat Aut hor Goal Type Problems ed? [facility] On track (10/23/2020 Yes Sheldon, 1:06 PM CDT) CHRYSTAL Singh [facility] On track (12/25/2020 Yes [...] Concerns Noted Time Assessment 03/05/2021 8:16 AM AWS DEVELOPER A fall risk assessment has been complet ed for the patient 12/07/2020 3:18 PM CDT PHQ-2 Depression Total Score: 2 documented as of this encounter Care Teams Start Date End Date Carpet Inspector Relationship Specialty 05/15/20 Garfield Gray MD PCP - [address] [phone] 06/13/20 Riley Hopson MD Consulting Cardiovascul [address] [place] [address] Physician ar Disease [address] [place], [place] [address] 12/20/20 Gino Pandya, PHYSIOGNOMIST-SENIOR SECURITY ANALYST Nurse Nurse [address] [phone] 01/19/21 Teri Brandon Continuum of Care Case Management documented as of this encounter
--- OUTSIDE RECORDS SUMMARY | 2021-03-14 10:44 | XMS REPORT | Encounter Summary ---
Author Author [facility] Organization [facility] Address Unknown Phone Unavailable Care Team Providers Care Exterminator Helper Termite Name Role Phone Self, Garfield OLVERA PCP Riley Hopson MD [phone] Gino Pandya APRN-TECHNICAL ASSISTANT [phone] Teri Brandon [phone] Unavailable Reason for Referral * Consult, Test & Treat (Routine) - Closed Diagnoses / Procedures Referred By Contact Referred To Conta ct Specialty Diagnoses Other cirrhosis of liver (HCC) Severe malnutrition (HCC) Stage 3b chronic kidney disease (HCC) Acute kidney injury superimposed on CKD (HCC) Carlos Longo MD 4000 [facility] [id number] [place] [address] [facility] Gen Hepatology Cl 4000 [facility] [address], [address] [place] [address] Hepatology Referral ID Status Reason Start Date Expiration Visits Vi sits Date Requested Authorized [id number] Closed Specialty Services 03/05/2021 03/05/2022 1 1 Required Comments Please see Dr Miller Re: Histopath-per Dr Carlos Longo ER APPRENTICE Encounter Details Care Team Description Date Type Department Sherin Mata BSN Other cirrhosis of liver (HCC) (Primary Dx); Severe malnutrition (HCC); Stage 3b chronic kidney disease (HCC); Acute kidney injury superimposed on CKD (HCC) 03/05/2021 [facility] [address] [place] [address] Social History Date Tobacco Use Types Packs/Day Years Used Never Smoker Smokeless Tobacco: Never Used Comments Alcohol Use Standard Drinks/Week Not Currently 0 (1 standard drink = 0.6 o z pure alcohol) Sex Assigned at Date Recorded Female 06/01/2020 1:44 PM CHASER APPRENTICE Date Recorded COVID-19 Exposure Response 03/05/2021 8:08 AM CHASER APPRENTICE In the last month, have you been [...] Sherin Mata BSN - 03/05/2021 10:32 AM CHASER APPRENTICE Images from the original note were not included. Carlos Longo MD I am okay with continuation of 75 mg twice daily of spironolactone. She is getting frequent paracentesis, she has her issues driven predominantly by liver but certainly heart failure is contributing significantly. I would also request the patient to be scheduled to be seen with Dr. Miller for histopathology expertise ER APPRENTICE documented in this encounter Plan of Treatment Care Team Description Date Type Specialty Nithya Madison, JUMP ROLL OPERATOR-TECHNICAL ASSISTANT [address] [place] [address] Larry Tatum MD [address] [address] Jeanette Kingston, RT(R)(),LRT 03/19/2021 [facility] Radiology Encounter Carlos Longo MD 4000 [facility] [id number] [place] [address] [place] [address], [address] [place] [phone] Canceled (Patient-Personal) 03/22/2021 [facility] Radiology Encounter Jacob Almaraz [place] [address], [address] [place] [phone] Nonrheumatic tricuspid valve regurgitati on 03/27/2021 [facility] Cardiology Encounter Jacob Almaraz MD [address], [address] [place] [phone] CATHETERIZATION RIGHT HEART 03/27/2021 Surgery Cardiology Date/Time Name Priority Associated Diagnose s 03/27/2021 9:05 AM CHASER APPRENTICE CATHETERIZATION RIGHT HEART Nonrheumatic tricuspid valve regurgitation [...] Aut hor Goal Type Problems ed? Improve [facility] On track (10/23/2020 Yes Sheldon, 1:06 PM CDT) CHRYSTAL Singh [facility] On track (12/25/2020 Yes Sheldon, [...] Concerns Noted Time Assessment 03/05/2021 8:16 AM CHASER APPRENTICE A fall risk assessment has been complet ed for the patient 12/07/2020 3:18 PM CDT PHQ-2 Depression Total Score: 2 documented as of this encounter Care Teams Start Date End Date Exterminator Helper Termite Relationship Specialty 05/15/20 Garfield Gray MD PCP - [address] [address] 06/13/20 Riley Hopson MD Consulting Cardiovascul [address] [place] [address] Physician ar Disease [address] [place], [place] [address] 12/20/20 Gino Pandya, JUMP ROLL OPERATOR-TECHNICAL ASSISTANT Nurse Nurse [address] [place] [phone] 01/19/21 Teri Brandon Continuum of Care Case Management documented as of this encounter
[2021-03-14] MEDS ORDERED: NS IV 1000 ML 1,000 ML IV SCH ×2 (11:00→15:30)
--- NOTE | 2021-03-14 11:01 | ED General ---
General Chief Complaint: Altered Mental Status Source of Information: Patient, EMS, Old Records Exam Limitations: Other (altered mental status, not answering questions) History of Present Illness Date Seen by Provider: Mar 14, 2021 Time Seen by Provider: 10:38 Initial Comments 61-year-old female presenting with altered mental status and decreased activity in the last 2 days. She presents by EMS from home. She did have a fall on Friday where she was trying to carry something and walk at the same time. When she did this she fell and hit her left leg on the 2.4. She came in Friday afternoon and was evaluated but no obvious fracture or dislocation was seen on imaging. She seemed to be having muscle spasms especially with movement of the leg. She was prescribed baclofen for muscle relaxer. She has not been eating or drinking well at home and just taking medications. She also was taking hydrocodone at home that was prescribed by primary care on Monday 03/12. Today she presents and has a very dry mouth and dry mucous membranes. She is not answering questions. Timing/Duration: 1-2 Days Modifying Factors: worse with Medication (baclofen and hydrocodone makes it worse) Associated Systoms: Other (unable to obtain other symptoms/ROS as pt is not answering questions) Allergies and Home Medications Allergies Coded Allergies: No Known Drug Allergies (Unverified , 09/09/20) Patient Home Medication List Home Medication List Reviewed: Yes Baclofen (Baclofen) 10 Mg Tablet, 10 MG PO BID PRN for MUSCLE SPASMS Prescribed by: BHARGAV BLOCK on 03/11/21 1406 Cephalexin (Cephalexin) 500 Mg Tablet, 500 MG PO TID Prescribed by: WADE JOHNSON on 12/13/20 1658 Review of Systems Review of Systems Constitutional: weakness (generalized) Musculoskeletal: muscle pain (left hip and thigh pain since fall 03/10) Unable to obtain ROS as pt is not answering questions. 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 oz. kg; 21.00 BMI Method: General Appearance: No Apparent Distress, Chronically ill HEENT: PERRL/EOMI; No Moist Mucous Membranes (dry mucous membranes with cracked dry lips) Neck: Full Range of Motion, Normal Inspection, Non Tender, Supple Respiratory: Chest Non Tender, Lungs Clear, Normal Breath Sounds Cardiovascular: Regular Rate, Rhythm, Normal Peripheral Pulses, Systolic Murmur Gastrointestinal: Normal Bowel Sounds, No Pulsatile Mass, Non Tender, Soft Rectal: Deferred Extremity: Normal Capillary Refill, No Calf Tenderness, No Pedal Edema, Other (tenderness to palpation and movement of left hip and posterior thigh) Neurologic/Psychiatric: Alert (has eyes open and is looking around but not answering questions or consistently following commands); No Oriented x3 (not answering any orientation questions) Skin: Warm/Dry, Ecchymosis (multiple ecchymotic areas in various stages of healing) Focused Exam Lactate Level 03/14/21 10:50: Lactic Acid Level 1.40 Lactic Acid Level Laboratory Tests Test 03/14/21 10:50 Lactic Acid Level 1.40 MMOL/L (0.50-2.00) Progress/Results/Core Measures Suspected Sepsis SIRS Temperature: Pulse: Respiratory Rate: Laboratory Tests 03/14/21 10:50: White Blood Count 8.8 Blood Pressure / Mean: 03/14/21 10:50: Lactic Acid Level 1.40 Laboratory Tests 03/14/21 10:50: Creatinine 1.14, INR Comment 1.9H, Platelet Count 240, Total Bilirubin 1.3H Results/Orders Lab Results Laboratory Tests Test 03/14/21 10:50 Range/Units White Blood Count 8.8 4.3-11.0 10^3/uL Red Blood Count 3.87 3.80-5.11 10^6/uL Hemoglobin 12.0 11.5-16.0 g/dL Hematocrit 35 35-52 % Mean Corpuscular Volume 91 80-99 fL Mean Corpuscular Hemoglobin 31 25-34 pg Mean Corpuscular Hemoglobin Concent 34 32-36 g/dL Red Cell Distribution Width 15.9 H 10.0-14.5 % Platelet Count 240 130-400 10^3/uL Mean Platelet Volume 8.7 L 9.0-12.2 fL Immature Granulocyte % (Auto) 1 % Neutrophils (%) (Auto) 87 H 42-75 % Lymphocytes (%) (Auto) 7 L 12-44 % Monocytes (%) (Auto) 6 0-12 % Eosinophils (%) (Auto) 0 0-10 % Basophils (%) (Auto) 0 0-10 % Neutrophils # (Auto) 7.6 1.8-7.8 X 10^3 Lymphocytes # (Auto) 0.6 L 1.0-4.0 X 10^3 Monocytes # (Auto) 0.5 0.0-1.0 X 10^3 Eosinophils # (Auto) 0.0 0.0-0.3 10^3/uL Basophils # (Auto) 0.0 0.0-0.1 10^3/uL Immature Granulocyte # (Auto) 0.1 0.0-0.1 10^3/uL Neutrophils % (Manual) 94 % Lymphocytes % (Manual) 4 % Monocytes % (Manual) 1 % Eosinophils % (Manual) 0 % Basophils % (Manual) 0 % Band Neutrophils 1 % Prothrombin Time 21.9 H 12.2-14.7 SEC INR Comment 1.9 H 0.8-1.4 Activated Partial Thromboplast Time 47 H 24-35 SEC Urine Color YELLOW Urine Clarity SL CLOUDY Urine pH 6.0 5-9 Urine Specific [place] 1.015 L 1.016-1.022 Urine Protein NEGATIVE NEGATIVE Urine Glucose (UA) 1+ H NEGATIVE Urine Ketones NEGATIVE NEGATIVE Urine Nitrite NEGATIVE NEGATIVE Urine Bilirubin NEGATIVE NEGATIVE Urine Urobilinogen 0.2 < = 1.0 MG/DL Urine Leukocyte Esterase TRACE H NEGATIVE Urine RBC (Auto) NEGATIVE NEGATIVE Urine RBC NONE /HPF Urine WBC 2-5 /HPF Urine Squamous Epithelial Cells 0-2 /HPF Urine Crystals NONE /LPF Urine Bacteria TRACE /HPF Urine Casts NONE /LPF Urine Mucus NEGATIVE /LPF Urine Culture Indicated NO Sodium Level 134 L 135-145 MMOL/L Potassium Level 3.5 L 3.6-5.0 MMOL/L Chloride Level 94 L 98-107 MMOL/L Carbon Dioxide Level 26 21-32 MMOL/L Anion Gap 14 5-14 MMOL/L Blood Urea Nitrogen 25 H 7-18 MG/DL Creatinine 1.14 0.60-1.30 MG/DL Estimat Glomerular Filtration Rate 49 BUN/Creatinine Ratio 22 Glucose Level 110 H 70-105 MG/DL Lactic Acid Level 1.40 0.50-2.00 MMOL/L Calcium Level 9.4 8.5-10.1 MG/DL Corrected Calcium 9.8 8.5-10.1 MG/DL Total Bilirubin 1.3 H 0.1-1.0 MG/DL Aspartate Amino Transf (AST/SGOT) 43 H 5-34 U/L Alanine Aminotransferase (ALT/SGPT) 16 0-55 U/L Alkaline Phosphatase 106 40-136 U/L Ammonia 42 H 11-32 UMOL/L Troponin I < 0.30 <0.30 NG/ML Pro-B-Type Natriuretic Peptide 3904.0 H <75.0 PG/ML Total Protein 6.9 6.4-8.2 GM/DL Albumin 3.5 3.2-4.5 GM/DL Salicylates Level < 0.3 L 5.0-20.0 MG/DL Urine Opiates Screen POSITIVE H NEGATIVE Urine Oxycodone Screen NEGATIVE NEGATIVE Urine Methadone Screen NEGATIVE NEGATIVE Urine Propoxyphene Screen NEGATIVE NEGATIVE Acetaminophen Level < 10 L 10-30 UG/ML Urine Barbiturates Screen NEGATIVE NEGATIVE Ur Tricyclic Antidepressants Screen NEGATIVE NEGATIVE Urine Phencyclidine Screen NEGATIVE NEGATIVE Urine Amphetamines Screen NEGATIVE NEGATIVE Urine Methamphetamines Screen NEGATIVE NEGATIVE Urine Benzodiazepines Screen NEGATIVE NEGATIVE Urine Cocaine Screen NEGATIVE NEGATIVE Urine Cannabinoids Screen POSITIVE H NEGATIVE Serum Alcohol < 10 <10 MG/DL My Orders Orders - BHARGAV BLOCK MD Ua Culture If Indicated (03/14/21 10:51) Cbc With Automated Diff (03/14/21 10:51) Comprehensive Metabolic Panel (03/14/21 10:51) Alcohol (03/14/21 10:51) Drug Screen Stat (Urine) (03/14/21 10:51) Acetaminophen (03/14/21 10:51) Salicylate (03/14/21 10:51) Ekg Tracing (03/14/21 10:51) Ed Iv/Invasive Line Start (03/14/21 10:51) Monitor-Rhythm Ecg Trace Only (03/14/21 10:51) Ns Iv 1000 Ml (Sodium Chloride 0.9%) (03/14/21 11:00) Blood Culture (03/14/21 10:51) Ammonia (03/14/21 10:51) Chest 1 View Ap/Pa Only (03/14/21 10:51) Ct Head Wo (03/14/21 10:51) Ct Abdomen/Pelvis Wo (03/14/21 10:51) Trevino Cath (03/14/21 10:51) Lactic Acid Analyzer (03/14/21 10:51) Probnp Fs (03/14/21 10:51) Troponin I Fs (03/14/21 10:51) Protime With Inr (03/14/21 10:51) Partial Thromboplastin Time (03/14/21 10:51) Manual Differential (03/14/21 10:50) Ns Iv 1000 Ml (Sodium Chloride 0.9%) (03/14/21 15:30) Vital Signs/I&O 03/14/21 03/14/21 10:44 16:24 Temp 36.0 Pulse 106 111 Resp 16 25 B/P (MAP) 124/63 (83) 104/57 Pulse Ox 98 94 O2 Delivery Room Air Room Air Capillary Refill : Progress Note #1: Progress Note Obtain labs including ammonia level with her reported history of liver disease. Cardiac enzymes with ECG and place on cardiac telemetry monitoring. Trevino catheter to monitor urine output and have accurate I/Os. Check urine for signs of infection and hydration. Give IVF for hydration with her mucous membranes being dry and heart rate showing tachycardia. As far as her GCS she has her eyes open spontaneously for a 4, for verbal she is not answering questions but did say she needed to pee so given 4 for confusion, for motor response given 5 as she localized to pain but was not consistently obeying commands. From speaking with family she has been much more confused and decreased responsiveness since Friday night when she started taking hydrocodone and baclofen. She slept all day on Friday and he was unable to get her to take any of her regular medicines or eat or drink. Today he finally called Dr. Gray's office back and they said it would not be the medicine because she has taken the Hydrocodone before and told him to have her be seen. Progress Note #2: Progress Note Labs appear stable without acute abnormality. She has stable white blood cell count. Her lactic acid is not elevated. Her urine does not show signs of infection. She has no alcohol, acetaminophen or salicylate in her system. She does have THC and opiates in her system. She has no acute findings on the CT of her head. With the CT of her abdomen and pelvis she does have findings for superior and inferior pubic ramus fracture on the left. These are nondisplaced. She also has an anterior cortex sacral alar fracture. Ammonia level still pending. Will check with [facility] to see if they have any beds available for admission. Patient's request that she go there if possible since her specialists are there. Progress Note #3: Progress Note 1325 I spoke with CHRYSTAL Moeller at the [facility] transfer center. She took information on the patient and will check with the physician advisor to see if they have capability and capacity to take the patient. 1448 Dr. Donaldson will be accepting physician for patient to come to [facility]. Will call back with bed assignment. ECG Initial ECG Impression Date: Mar 14, 2021 Initial ECG Impression Time: 11:03 Initial ECG Rate: 98 Initial ECG Rhythm: Normal Sinus Initial ECG Comparisson: No Previous ECG Available Comment Ectopic atrial rhythm with a heart rate of 90 bpm. Right bundle branch block. NJ interval 175 ms. QT interval 424 ms with a QTc interval 542 ms. There is baseline wander on the tracing. She has some ST depression in leads I, aVL, V5, V6. No ST elevation. No prior tracing available for comparison. Diagnostic Imaging Diagonstic Imaging: Xray Plain Films/CT/US/NM/MRI: chest Comments [facility] [place], [place] NAME: DANIELLE RODGERS [facility] REC#: [id number] PT STATUS: REG ER : 1960 PHYSICIAN: BHARGAV BLOCK MD ADMIT DATE: 03/14/21/ER FS Signed Date of Exam:03/14/21 CHEST 1 VIEW AP/PA ONLY Indication: Altered mental status. TIME OF EXAM: 11:11 AM Correlation is made with prior chest 12/11/2020. Changes of median sternotomy are noted. Heart is enlarged. There is central congestion. Interstitial markings are slightly prominent as well which could be owing to mild interstitial edema. No effusion or pneumothorax is seen. Surgical clips in the left neck. IMPRESSION: Mild congestive changes, as described. Dictated by: Dictated on workstation # [id number] Dict: 03/14/21 1149 Trans: 03/14/21 1521 [facility] [id number] Interpreted by: ANNETTE NORRIS MD Electronically signed by: ANNETTE NORRIS MD 03/14/21 152 Reviewed: Reviewed by Ny Diagonstic Imaging: CT Plain Films/CT/US/NM/MRI: head Comments [facility] [place] [place] NAME: DANIELLE RODGERS [employer] [facility] REC#: [id number] PT STATUS: REG ER : 1960 PHYSICIAN: BHARGAV BLOCK MD ADMIT DATE: 03/14/21/ER FS Signed Date of Exam:03/14/21 CT HEAD WO PROCEDURE: CT head without contrast. TECHNIQUE: Multiple contiguous axial images were obtained through the brain without the use of intravenous contrast. Auto Exposure Controls were utilized during the CT exam to meet ALARA standards for radiation dose reduction. INDICATION: Altered mental status. COMPARISON: 12/13/2020. FINDINGS: The exam is stable and unremarkable. There is no hemorrhage, hydrocephalus, edema, mass, mass effect, or evidence for an elevation of the intracerebral pressures. Orbits, sinuses, and calvarium are nonacute. The basilar cisterns are patent. IMPRESSION: Stable unremarkable CT head. Dictated by: Dictated on workstation # [id number] Dict: 03/14/21 1142 Trans: 03/14/21 1548 [id number] Interpreted by: RONAN JONES Electronically signed by: RONAN JONES 03/14/21 1548 Reviewed: Reviewed by Ny Diagonstic Imaging: CT Plain Films/CT/US/NM/MRI: abdomen, pelvis Comments [facility] [place] [place] NAME: [employer] [facility] REC#: [id number] PT STATUS: REG ER : 1960 PHYSICIAN: BHARGAV BLOCK MD ADMIT DATE: 03/14/21/ER FS Signed Date of Exam:03/14/21 CT ABDOMEN/PELVIS WO PROCEDURE: CT abdomen and pelvis without contrast. TECHNIQUE: Multiple contiguous axial images were obtained through the abdomen and pelvis without the use of intravenous contrast. Auto Exposure Controls were utilized during the CT exam to meet ALARA standards for radiation dose reduction. INDICATION: Fall with left leg pain. COMPARISON: Comparison made with abdominopelvic CT 12/13/2020. FINDINGS: Old unfused right posterior eighth rib fracture is chronic. No acute abnormality of the partially visualized rib segments. There is cardiomegaly as well as some vascular congestion and likely mild interstitial edema in the visualized lung bases. There is a cxgxh-mb-zirxtnxe volume of abdominopelvic free fluid; however, this has decreased when compared to the previous exam. There is no fluid-fluid level or hematocrit effect to suggest underlying hemoperitoneum. There is no free air. There are embolic coils in the left abdominal wall with resolution of a previous large rectus sheath hematoma. The spleen is within normal limits. No focal liver lesion or bile duct dilatation. The gallbladder is partly contracted. No visualized stone. There is no hydroureteronephrosis. Urinary bladder is catheterized and appeared nonfocal. There are fractures of the left superior and inferior pubic rami. Superiorly, this extends into the anterior column of the acetabulum with no articular offset. New from prior is anterior cortical irregularity of the lateral left sacral ala as well as some linear sclerosis deep to that site. The sclerotic changes may be from subacute healed or healing fracture or reflect trabecular impaction in the setting of an acute zone 1 sacral fracture. The femoral heads, necks, trochanters, and visualized subtrochanteric shafts are intact. The right pelvic ring is intact. No symphyseal or SI joint diastasis. No evidence for pelvic sidewall or extraperitoneal pelvic hematoma. IMPRESSION: 1. Left superior and inferior pubic rami fractures superiorly involving the anterior column of the acetabulum with no articular offset. Proximal femora are intact. 2. Left zone 1 sacral alar fracture isolated to the anterior cortex. Some sclerosis deep to that site may be from trabecular impaction or healed or healing subacute fracture. Findings in the left sacrum all new from the comparative CT of 12/13/2020. 3. No pelvic sidewall or extraperitoneal hematoma. Lrwth-ew-qexeupkh volume free fluid, decreased from prior. 4. Resolution of previous rectus sheath hematoma with overlying embolic coils noted. 5. Cardiomegaly, vascular congestion, and probable basilar interstitial edema without basilar pleural fluid. Dictated by: Dictated on workstation # [id number] Dict: 03/14/21 1144 Trans: 03/14/21 1548 [id number] Interpreted by: RONAN JONES Electronically signed by: RONAN JONES 03/14/21 1548 Reviewed: Reviewed by Me Departure Impression Primary Impression: Altered mental status Qualified Codes: R41.0 - Disorientation, unspecified Additional Impressions: Dehydration Closed fracture of left inferior pubic ramus Qualified Codes: S32.592A - Other specified fracture of left pubis, initial encounter for closed fracture Closed fracture of left superior pubic ramus Qualified Codes: S32.512A - Fracture of superior rim of left pubis, initial encounter for closed fracture Disposition: XFER SHT-TRM HOSP Condition: Stable Transfer Transfer Reason: Patient preference Time Spoke to Accepting Phy: 14:48 Transfer Progress Notes 1325 call placed to [facility] transfer center and spoke with CHRYSTAL Moeller. She took the basic information on the patient and will call back after speaking with the physician advisor to see if they have capability and capacity to take the patient 1448 CHRYSTAL Moeller called back and advised that Dr. Donaldson accepted the patient and they will call back once a bed is available. Transfer Facility: [facility] Method of Transfer: EMS Departure-Patient Inst. Referrals: DULCE MARIA GRAY MD (PCP/Family) Primary Care Physician BHARGAV BLOCK MD Mar 14, 2021 11:01
[2021-03-14 11:11] LABS: BILIRUBIN,URINE NEGATIVE (NEGATIVE); CLARITY,URINE SL CLOUDY; COLOR,URINE YELLOW; GLUCOSE, URINE (UA) 1+ (NEGATIVE); KETONES,URINE NEGATIVE (NEGATIVE); LEUKOCYTE ESTERASE ,URINE TRACE (NEGATIVE); NITRITE,URINE NEGATIVE (NEGATIVE); PROTEIN,URINE NEGATIVE (NEGATIVE)
[2021-03-14 11:14] LABS: HEMATOCRIT 35 % (35-52); MEAN CORPUSCULAR HEMOGLOBIN 31 pg (25-34); MEAN CORPUSCULAR HGB CONC 34 g/dL (32-36); MEAN CORPUSCULAR VOLUME 91 fL (80-99); MEAN PLATELET VOLUME 8.7 fL (9.0-12.2); PLATELET COUNT 240 10^3/uL (130-400); WHITE BLOOD COUNT 8.8 10^3/uL (4.3-11.0)
[2021-03-14 11:15] LABS: BASOPHILS % (AUTO) 0 % (0-10); EOSINOPHILS % (AUTO) 0 % (0-10); LYMPHOCYTES # (AUTO) 0.6 X 10^3 (1.0-4.0); LYMPHOCYTES % (AUTO) 7 % (12-44); MONOCYTES # (AUTO) 0.5 X 10^3 (0.0-1.0); MONOCYTES % (AUTO) 6 % (0-12); NEUTROPHILS # (AUTO) 7.6 X 10^3 (1.8-7.8); NEUTROPHILS % (AUTO) 87 % (42-75)
[2021-03-14 11:38] LABS: SODIUM 134 MMOL/L (135-145)
[2021-03-14 11:39] LABS: ALANINE AMINOTRANSFERASE 16 U/L (0-55); ALKALINE PHOSPHATASE 106 U/L (40-136); BILIRUBIN,TOTAL 1.3 MG/DL (0.1-1.0); BUN/CREATININE RATIO 22; CALCIUM 9.4 MG/DL (8.5-10.1); CARBON DIOXIDE 26 MMOL/L (21-32); CHLORIDE 94 MMOL/L (98-107); CREATININE SERUM 1.14 MG/DL (0.60-1.30); GFR ESTIMATED 49; GLUCOSE 110 MG/DL (70-105); INR 1.9 (0.8-1.4); POTASSIUM 3.5 MMOL/L (3.6-5.0); PROTHROMBIN TIME PATIENT 21.9 SEC (12.2-14.7); TOTAL PROTEIN 6.9 GM/DL (6.4-8.2)
[2021-03-14 11:40] LABS: ACETAMINOPHEN < 10 UG/ML (10-30); ALBUMIN 3.5 GM/DL (3.2-4.5); SALICYLATE < 0.3 MG/DL (5.0-20.0)
[2021-03-14 11:45] LABS: BACTERIA,URINE TRACE /HPF; SQUAMOUS EPITHELIAL CELL,UR 0-2 /HPF
[2021-03-14 11:46] LABS: AMPHETAMINE SCREEN, URINE NEGATIVE (NEGATIVE); BARBITURATE SCREEN URINE NEGATIVE (NEGATIVE); BENZODIAZEPINES SCREEN URINE NEGATIVE (NEGATIVE); CANNABINOID SCREEN, URINE POSITIVE (NEGATIVE); COCAINE SCREEN URINE NEGATIVE (NEGATIVE); METHADONE STAT NEGATIVE (NEGATIVE); METHAMPHETAMINE SCREEN URINE S NEGATIVE (NEGATIVE); OPIATE SCREEN URINE POSITIVE (NEGATIVE); OXYCODONE STAT NEGATIVE (NEGATIVE); PROPOXYPHENE STAT NEGATIVE (NEGATIVE); TRICYCLIC ANTIDEPRESSANTS SCRE NEGATIVE (NEGATIVE)
--- NOTE | 2021-03-14 11:52 | Diagnostic Imaging Report ---
Indication: Altered mental status. TIME OF EXAM: 11:11 AM Correlation is made with prior chest 12/11/2020. Changes of median sternotomy are noted. Heart is enlarged. There is central congestion. Interstitial markings are slightly prominent as well which could be owing to mild interstitial edema. No effusion or pneumothorax is seen. Surgical clips in the left neck. IMPRESSION: Mild congestive changes, as described. Dictated by: Dictated on workstation # [id number]
--- NOTE | 2021-03-14 11:52 | Diagnostic Imaging Report ---
PROCEDURE: CT head without contrast. TECHNIQUE: Multiple contiguous axial images were obtained through the brain without the use of intravenous contrast. Auto Exposure Controls were utilized during the CT exam to meet ALARA standards for radiation dose reduction. INDICATION: Altered mental status. COMPARISON: 12/13/2020. FINDINGS: The exam is stable and unremarkable. There is no hemorrhage, hydrocephalus, edema, mass, mass effect, or evidence for an elevation of the intracerebral pressures. Orbits, sinuses, and calvarium are nonacute. The basilar cisterns are patent. IMPRESSION: Stable unremarkable CT head. Dictated by: Dictated on workstation # [id number]
--- NOTE | 2021-03-14 12:02 | Diagnostic Imaging Report ---
PROCEDURE: CT abdomen and pelvis without contrast. TECHNIQUE: Multiple contiguous axial images were obtained through the abdomen and pelvis without the use of intravenous contrast. Auto Exposure Controls were utilized during the CT exam to meet ALARA standards for radiation dose reduction. INDICATION: Fall with left leg pain. COMPARISON: Comparison made with abdominopelvic CT 12/13/2020. FINDINGS: Old unfused right posterior eighth rib fracture is chronic. No acute abnormality of the partially visualized rib segments. There is cardiomegaly as well as some vascular congestion and likely mild interstitial edema in the visualized lung bases. There is a mlafc-js-eiqaelxs volume of abdominopelvic free fluid; however, this has decreased when compared to the previous exam. There is no fluid-fluid level or hematocrit effect to suggest underlying hemoperitoneum. There is no free air. There are embolic coils in the left abdominal wall with resolution of a previous large rectus sheath hematoma. The spleen is within normal limits. No focal liver lesion or bile duct dilatation. The gallbladder is partly contracted. No visualized stone. There is no hydroureteronephrosis. Urinary bladder is catheterized and appeared nonfocal. There are fractures of the left superior and inferior pubic rami. Superiorly, this extends into the anterior column of the acetabulum with no articular offset. New from prior is anterior cortical irregularity of the lateral left sacral ala as well as some linear sclerosis deep to that site. The sclerotic changes may be from subacute healed or healing fracture or reflect trabecular impaction in the setting of an acute zone 1 sacral fracture. The femoral heads, necks, trochanters, and visualized subtrochanteric shafts are intact. The right pelvic ring is intact. No symphyseal or SI joint diastasis. No evidence for pelvic sidewall or extraperitoneal pelvic hematoma. IMPRESSION: 1. Left superior and inferior pubic rami fractures superiorly involving the anterior column of the acetabulum with no articular offset. Proximal femora are intact. 2. Left zone 1 sacral alar fracture isolated to the anterior cortex. Some sclerosis deep to that site may be from trabecular impaction or healed or healing subacute fracture. Findings in the left sacrum all new from the comparative CT of 12/13/2020. 3. No pelvic sidewall or extraperitoneal hematoma. Afwfo-yl-lqzbjwts volume free fluid, decreased from prior. 4. Resolution of previous rectus sheath hematoma with overlying embolic coils noted. 5. Cardiomegaly, vascular congestion, and probable basilar interstitial edema without basilar pleural fluid. Dictated by: Dictated on workstation # [id number]
[2021-03-14 12:30] LABS: BAND NEUTROPHILS 1 %; BASOPHILS % (MANUAL) 0 %; EOSINOPHILS % (MANUAL) 0 %; LYMPHOCYTES % (MANUAL) 4 %; MONOCYTES % (MANUAL) 1 %; NEUTROPHILS % (MANUAL) 94 %
[2021-03-14 16:24] VITALS: BP 104/57
== END 2021-03-14 18:01 | disposition short-term general hospital (02) ==
LOC: EDUNIT# 10:36 → ER FS 10:38
DX: S32.592A Other specified fracture of left pubis, initial encounter for closed fracture (principal); S32.512A Fracture of superior rim of left pubis, initial encounter for closed fracture; R41.82 Altered mental status, unspecified; E86.0 Dehydration; W22.8XXA Striking against or struck by other objects, initial encounter
CPT/HCPCS: 36415; 51702; 70450; 71045; 74176; 80053; 80306; 81000; 82140; 83605; 83880; 84484; 85007; 85027; 85610; 85730; 87040; 93005; 93041; 96360; 96361; 99291; G0480 ×3; 80320; 80329

== ENCOUNTER → 2021-03-29 | Outpatient (CLI) | payer MEDICARE, MEDICAID ==
[2021-03-29 17:14] LABS: INR 1.2 (0.8-1.4); PROTHROMBIN TIME PATIENT 15.2 SEC (12.2-14.7)
[2021-03-29 17:25] LABS: POTASSIUM 3.4 MMOL/L (3.6-5.0)
[2021-03-29 17:26] LABS: CALCIUM 8.3 MG/DL (8.5-10.1); CREATININE SERUM 1.12 MG/DL (0.60-1.30)
== END ==
PROVIDERS: ATTEND Family Medicine
DX: N17.9 Acute kidney failure, unspecified (principal); Z79.01 Long term (current) use of anticoagulants
CPT/HCPCS: 36415; 80048; 85610

== ENCOUNTER 2021-04-14 18:45 | Inpatient (IN) | payer MEDICARE, MEDICAID ==
[2021-04-14] VITALS (7 sets, daily range): BP systolic 72–123; BP diastolic 58–79
--- OUTSIDE RECORDS SUMMARY | 2021-04-14 18:59 | XMS REPORT | Encounter Summary ---
Author Author [facility] Organization [facility] Address Unknown Phone Unavailable Care Team Providers Care Director Banking Name Role Phone Self, Garfield OLVERA PCP Riley Hopson MD [phone] Gino Pandya APRN-BAKERY ASSISTANT [phone] Teri Brandon [phone] Unavailable Reason for Referral * Radiology Services (Routine) - Authorized Diagnoses / Procedures Referred By Contact Referred To Conta ct Specialty Diagnoses Other cirrhosis of liver (HCC) Procedures IR PARACENTESIS DIAGNOSTIC + THERAPEUTIC Jeanette Garcia APRN-TWYLA [address] [address] [place] [place] [address] [place] [address] Radiology Referral ID Status Reason Start Date Expiration Visits Vi sits Date Requested Authorized [id number] Authorized 04/02/2021 04/02/2022 20 20 TENSIONING IRONWORKER HELPER Reason for Visit * Radiology Services (Routine) - Authorized Diagnoses / Procedures Referred By Contact Referred To Conta ct Specialty Diagnoses Other cirrhosis of liver (HCC) Procedures IR PARACENTESIS DIAGNOSTIC + THERAPEUTIC Jeanette Garcia APRN-BAKERY ASSISTANT [address] [address] [place] [place] [address] [place] [address] Radiology Referral ID Status Reason Start Date Expiration Visits Vi sits Date Requested Authorized [id number] Authorized 04/02/2021 04/02/2022 20 20 Encounter Details Care Team Description Date Type Department Giancarlo Meneses MD [address] [phone] Jeanette Kingston, RT(R)(),LRT Jose Jovel MD [address] [address] Adithya Rene, RN Other cirrhosis of liver (HCC) 04/11/2021 Hospital Interventional Radi ology: Encounter [facility] [address] [place] [address] Social History Date Tobacco Use Types Packs/Day Years Used Never Smoker Smokeless Tobacco: Never Used Comments: secondhand Comments Alcohol Use Standard Drinks/Week Not Currently 0 (1 standard drink = 0.6 o z pure alcohol) Sex Assigned at Date Recorded Female 06/01/2020 1:44 PM POST TENSIONING IRONWORKER HELPER Date Recorded COVID-19 Exposure Response 04/11/2021 1:00 PM POST TENSIONING IRONWORKER HELPER In the last month, have you been in contact with No / Unsure someone who was confirmed or suspected to have Coronavirus / COVID-19? documented as of this encounter Last Filed Vital Signs Reading Time Taken Comments Vital Sign 101/78 04/11/2021 3:10 PM POST TENSIONING IRONWORKER HELPER Blood Pressure - - Pulse - - Temperature - - Respiratory Rate 96% 04/11/2021 3:10 PM POST TENSIONING IRONWORKER HELPER Oxygen Saturation - - Inhaled Oxygen Concentration 54.4 kg (120 lb) 04/11/2021 1:05 PM POST TENSIONING IRONWORKER HELPER Weight 157.5 cm (5' 2.01") 04/11/2021 1:05 PM POST TENSIONING IRONWORKER HELPER Height 21.94 04/11/2021 1:05 PM POST TENSIONING IRONWORKER HELPER Body Mass Index documented in this encounter Functional Status Date of Assessment Functional Status Response 03/20/2021 Does the patient have a hearing impairment: [...] Medication Sig Dispensed Refills acetaminophen (TYLENOL Take 1,000 mg 0 EXTRA STRENGTH) 500 mg by mouth tablet every 4 hours as needed for Pain. Max of 4,000 mg of acetaminophen in 24 hours. ascorbic acid (VITAMIN C) Take 500 mg 0 500 mg tablet by mouth daily. 03/22/2021 03/17/2022 bumetanide (BUMEX) 1 mg Take two 360 tablet 3 tablet tablets by mouth twice daily for 360 days. Will need creatinine/re nal function rechecked on 03/25 prior to resuming diuretics. Cardiology (Dr. Carlos Longo) managing. calcium carbonate Take 1,250 mg 0 (OS-KRUPA) 1250 mg tablet by mouth daily. 04/02/2021 ciprofloxacin (CIPRO) 500 Take one 30 tablet 1 mg tablet tablet by mouth daily. 2021 ferrous gluconate Take one 90 tablet 1 (FERGON) 240 mg (27 mg tablet by iron) tablet mouth daily. fluticasone propionate Apply 1 spray 0 (FLONASE) 50 to each mcg/actuation nasal nostril as spray, suspension directed daily. Shake bottle gently before using. 11/15/2020 hyoscyamine (ANASPAZ) Place one 180 tablet 0 0.125 mg rapid dissolve tablet under tablet tongue every 4 hours as needed. 03/22/2021 lactulose 10 gram/15 mL Take 30 mL by 0 oral solution mouth every 4 hours. Titrate to have 3-4 bowel movements per day. levothyroxine (SYNTHROID) Take 75 mcg 0 75 mcg tablet by mouth daily 30 minutes before breakfast. 2021 midodrine (PROAMATINE) 5 Take three 270 tablet 3 mg tablet tablets by mouth three times daily. MULTIVITAMIN PO Take 1 tablet 0 by mouth daily. 04/02/2021 ondansetron HCL (ZOFRAN) Take one 30 tablet 0 4 mg tablet tablet by mouth every 8 hours as needed for Nausea or Vomiting. 02/12/2021 oxybutynin chloride Take one 180 tablet 0 (DITROPAN) 5 mg tablet tablet by mouth daily. pantoprazole DR Take 40 mg by 0 (PROTONIX) 40 mg tablet mouth twice daily. 03/19/2021 rifAXIMin (XIFAXAN) 550 Take one 60 tablet 11 mg tablet tablet by mouth twice daily. 12/04/2020 sertraline (ZOLOFT) 100 Take one 180 tablet 0 mg tablet tablet by mouth twice daily. 03/22/2021 spironolactone Take one 540 tablet 3 (ALDACTONE) 25 mg tablet tablet by mouth twice daily. Take with food. Will need creatinine/re nal function rechecked on 03/25 prior to resuming diuretics. Cardiology (Dr. Carlos Longo) managing. 03/22/2020 VASCEPA 1 gram capsule TAKE 2 0 CAPSULES BY MOUTH TWICE DAILY WITH MEALS 03/22/2021 warfarin (COUMADIN) 1 mg Take three 120 tablet 0 tablet tablets by mouth daily. 03/22/2021 04/12/2021 metoprolol tartrate 25 mg Take one-half 180 tablet 0 tablet tablet by mouth twice daily. documented as of this encounter Discharge Disposition Code Departure Means Destination Disposition Wheelchair Home or Self Care documented in this encounter Progress Notes * Esther Borjas, CHRYSTAL - 04/11/2021 2:00 PM POST TENSIONING IRONWORKER HELPER Interventional Radiology Outpatient Scheduling Checklist 1. Name of Procedure(s): Paracentesis 2. Date of Procedure: 04/11/21 3. Arrival Time: 1300 4. Procedure Time: 1400 5. Correct Procedural Room Assignment: [facility] 6. Blood Thinners Triaged and instructed per protocol: Y/N/NA: NA Confirmed accurate instructions sent to patient: Y/N: NA 7. Procedure Order Verified: Y/N: Yes 9. Patient instructed to have a helper driver: Y/N/NA: Yes 10. Patient instructed on NPO status: Y/N/NA: NA Confirmed accurate instructions sent to patient: Y/N: Yes 11. Specimen needed: Y/N/NA: Yes Verified Order placed: Y/N: Yes 12. Allergies Verified: Y/N: Yes 13. Is there an Iodine Allergy: Y/N: No Does the Procedure Require contrast: Y/N: No If so, was the IR- Contrast Allergy [...] an insulin pump or continuous glucose monitor? NA If yes, was the patient instructed that this will need to be removed for this p rocedure and to bring supplies to reapply once the procedure is complete? NA 19. Patient was sent electronic procedure instructions: Y/N: Yes TENSIONING IRONWORKER HELPER documented in this encounter H&P Notes * Rachna Soto, APPEALS EXAMINER-BAKERY ASSISTANT - 04/11/2021 1:58 PM POST TENSIONING IRONWORKER HELPER IR Pre-Procedure History and Physical/Sedation Plan Procedure Date: 04/11/2021 Planned Procedure(s): Ultrasound-guided paracentesis Indication: Fluid testing; Therapeutic drainage Chief Complaint: Ascites History of Present Illness: Zaria Paulson is a 61 y.o. female with a history as listed below who presents today for procedure. Patient Active Problem List Diagnosis Date Noted Encephalopathy 03/14/2021 Fall 2021 Acute kidney injury superimposed on [...] [place]) 10/21/2020 GI bleeding 10/20/2020 Cirrhosis ([facility] [place]) 09/07/2020 Non-ischemic cardiomyopathy ([facility] [place]) 09/07/2020 Paroxysmal atrial fibrillation ([facility] [place]) 09/07/2020 Stage 3b chronic kidney disease ([facility] [place]) 09/07/2020 Atrial tachycardia ([facility] [place]) 09/07/2020 Iron deficiency anemia 08/03/2020 High output congestive heart failure ([facility] [place]) 08/01/2020 Hypotension, unspecified 07/10/2020 Chronic heart failure with preserved ejection fraction ([facility] [place]) 06/07/2020 Anemia 06/07/2020 Severe tricuspid regurgitation 06/07/2020 Hx of mechanical aortic valve replacement 06/07/2020 Chronic anticoagulation 06/07/2020 History of endocarditis 06/07/2020 Medical History: Diagnosis Date Cancer ([facility] [place]) Non- hodgkins lymphoma, chemo Disorder of thyroid gland Hypertension Iron deficiency anemia 08/03/2020 Iron deficiency anemia 08/03/2020 Surgical History: Procedure Laterality Date AORTIC VALVE REPLACEMENT 05/2009 mechanical ESOPHAGOGASTRODUODENOSCOPY WITH BIOPSY - FLEXIBLE N/A 06/06/2020 Performed by Bao Hernández MD at [facility] COLONOSCOPY DIAGNOSTIC WITH SPECIMEN COLLECTION BY BRUSHING/ WASHING - FLEXI BLE N/A 06/06/2020 Performed by Bao Hernández MD at [facility] ANGIOGRAPHY CORONARY ARTERY WITH RIGHT AND LEFT HEART CATHETERIZATION N/A Performed by Higinio Clarke MD at [facility] POSSIBLE PERCUTANEOUS CORONARY STENT PLACEMENT WITH ANGIOPLASTY N/A Performed by Higinio Clarke MD at [facility] ESOPHAGOGASTRODUODENOSCOPY WITH SPECIMEN COLLECTION BY BRUSHING/ WASHING N/A 10/21/2020 Performed by Cosmo Gomez MD at [facility] SIGMOIDOSCOPY WITH CONTROL OF BLEEDING - FLEXIBLE N/A 10/21/2020 Performed by Cosmo Gomez MD at [facility] SIGMOIDOSCOPY WITH DIRECTED SUBMUCOSAL INJECTION - FLEXIBLE 10/21/2020 Performed by Cosmo Gomez MD at [facility] ESOPHAGOGASTRODUODENOSCOPY WITH CONTROL OF BLEEDING - FLEXIBLE N/A Performed by Bao Hernández MD at [facility] Social History Tobacco Use Smoking status: Never Smoker Smokeless tobacco: Never Used Tobacco comment: secondhand Substance Use Topics Alcohol use: Not Currently Family History Problem Relation Age of Onset COPD Mother Medications Prior to Admission Medication Sig Dispense Refill Last Dose acetaminophen (TYLENOL EXTRA STRENGTH) 500 mg tablet Take 1,000 mg by mouth every 4 hours as needed for Pain. Max of 4,000 mg of acetaminophen in 24 hours. Unknown ascorbic acid (VITAMIN C) 500 mg tablet Take 500 mg by mouth daily. 022 bumetanide (BUMEX) 1 mg tablet Take two tablets by mouth twice daily for 360 days. Will need creatinine/renal function rechecked on 03/25 prior to resuming di uretics. Cardiology (Dr. Carlos Longo) managing. 360 tablet 3 04/11/2021 calcium carbonate (OS-KRUPA) 1250 mg tablet Take 1,250 mg by mouth daily. ciprofloxacin (CIPRO) 500 mg tablet Take one tablet by mouth daily. 30 table t 1 04/11/2021 ferrous gluconate (FERGON) 240 mg (27 mg iron) tablet Take one tablet by devin daily. (Patient taking differently: Take 240 mg by mouth at bedtime daily.) 9 0 tablet 1 04/10/2021 fluticasone propionate (FLONASE) 50 mcg/actuation nasal spray, suspension Ap ply 1 spray to each nostril as directed daily. Shake bottle gently before using. Unknown hyoscyamine (ANASPAZ) 0.125 mg rapid dissolve tablet Place one tablet under tongue every 4 hours as needed. 180 tablet 0 04/11/2021 lactulose 10 gram/15 mL oral solution Take 30 mL by mouth every 4 hours. Tit rate to have 3-4 bowel movements per day. 04/10/2021 levothyroxine (SYNTHROID) 75 mcg tablet Take 75 mcg by mouth daily 30 minute s before breakfast. 04/11/2021 metoprolol tartrate 25 mg tablet Take one-half tablet by mouth twice daily. 180 tablet 04/11/2021 midodrine (PROAMATINE) 5 mg tablet Take three tablets by mouth three times d aily. 270 tablet 3 04/11/2021 MULTIVITAMIN PO Take 1 tablet by mouth daily. 04/11/2021 ondansetron HCL (ZOFRAN) 4 mg tablet Take one tablet by mouth every 8 hours as needed for Nausea or Vomiting. 30 tablet 0 Unknown oxybutynin chloride (DITROPAN) 5 mg tablet Take one tablet by mouth daily. 1 80 tablet 0 04/11/[address] (PROTONIX) 40 mg tablet Take 40 mg by mouth twice daily. rifAXIMin (XIFAXAN) 550 mg tablet Take one tablet by mouth twice daily. 60 t ablet 11 04/11/2021 sertraline (ZOLOFT) 100 mg tablet Take one tablet by mouth twice daily. 180 tablet 0 04/11/2021 spironolactone (ALDACTONE) 25 mg tablet Take one tablet by mouth twice daily . Take with food. Will need creatinine/renal function rechecked on 03/25 prior t o resuming diuretics. Cardiology (Dr. Carlos Longo) managing. 540 tablet 3 2021 VASCEPA 1 gram capsule TAKE 2 CAPSULES BY MOUTH TWICE DAILY WITH MEALS 03/24 warfarin (COUMADIN) 1 mg tablet Take three tablets by mouth daily. 120 table t 0 04/10/2021 No Known Allergies Review of Systems Constitutional: negative for fevers and chills Respiratory: negative Cardiovascular: negative Gastrointestinal: negative Physical Exam: Vital Signs: Last Filed In 24 Hours Vital Signs: 24 Hour Range Height: 157.5 cm (62.01") (04/11 1305) Intensity Pain Scale (Self Report): 9 (04/11/21 1305) General appearance: alert and no distress noted. [...] and Neck: NA Mouth: NA Anesthesia Classification: ASA III (A patient with a severe systemic disease th at limits activity, but is not incapacitating) Status: Not Lab/Radiology/Other Diagnostic Tests: Labs: Pertinent labs reviewed Rachna Soto, APPEALS EXAMINER-BAKERY ASSISTANT Pager [phone] TENSIONING IRONWORKER HELPER documented in this encounter Procedure Notes * Fred Johnson - 04/11/2021 2:18 PM POST TENSIONING IRONWORKER HELPER Immediate Post Procedure Note Date: 04/11/2021 Attending Physician: Dr. Jovel Procedure(s): Paracentesis Pre/Post Diagnosis: Ascities Description/Findings: Clear fluid Anesthesia: 2% lidocaine Time out performed: Consent obtained, correct patient verified, correct procedur e verified, correct site verified, patient marked as necessary. Estimated Blood Loss: None/Negligible Specimen(s) Removed/Disposition: Yes, sent to pathology Complications: None Fred Johnson MD TENSIONING IRONWORKER HELPER documented in this encounter Miscellaneous Notes * Patient Instructions - Nupur Mandujano RN - 04/11/2021 3:17 PM POST TENSIONING IRONWORKER HELPER Images from the original note were not [...] to the procedu re performed at the [place] Location, call [phone] Friday-Friday from 7 -5p. After-hours and weekends, please call [phone] and ask for the [facility] Coating Machine Helper on-call. You or your caregiver should call [phone] for any severe symptoms such as excessive bleeding, severe dizziness, trouble breathing or loss of consciousness. TENSIONING IRONWORKER HELPER * Patient Education - Esther Borjas RN - 04/11/2021 2:00 PM POST TENSIONING IRONWORKER HELPER Dear Ms. Paulson, Thank you for choosing [facility] Interventional Rad iology for your procedure. Your appointment information is listed below: Appointment Date: 04/11/21 Appointment Time: 2:00 PM Arrival Time: 1:00 PM Location: [facility]: [address] [place] [address] Parking: available in the front of the building/ please go to main entrance and go to registration INTERVENTIONAL RADIOLOGY PRE-PROCEDURE INSTRUCTIONS LOCAL You are scheduled for a procedure in Interventional Radiology. Please follow [facility] instructions and any direction from your Primary [...] and leave valuables at home. 4. Arrive 1 hour prior to your appointment. This time will be spent registering , interviewing, assessing, educating, and preparing you for [...] be unable to perform your pro cedure. The nurse will give you discharge instructions about your care and activities af ter the procedure. TENSIONING IRONWORKER HELPER documented in this encounter Plan of Treatment Care Team Description Date Type Specialty Carlos Longo MD 4000 [facility] [id number] [place] [address] Giancarlo Meneses MD [address] [place], [place] [id number] Clarissa Harmon Stephanie, RT(R)(),LRT 04/16/2021 Hospital Radiology Encounter documented as of this encounter Goals Goal Patient Associated Recent Progress Patient-Stat Aut hor Goal Type Problems ed? Improve [facility] On track (03/20/2021 Yes Sheldon, 1:41 PM POST TENSIONING IRONWORKER HELPER) CHRYSTAL Singh [facility] On track (03/20/2021 Yes Sheldon, 1:41 PM POST TENSIONING IRONWORKER HELPER) CHRYSTAL Singh Note: "To get better and stronger." documented as of this encounter Procedures Comments Procedure Name Priority Date/Time Associated Diag nosis IR PARACENTESIS Routine 04/11/2021 Other cirrhosi s of liver DIAGNOSTIC + THERAPEUTIC 2:44 PM POST TENSIONING IRONWORKER HELPER (HCC) HC CELL COUNT Routine 04/11/2021 Other cirrhosis of liver W/DIFF-FLUIDS 2:17 PM POST TENSIONING IRONWORKER HELPER (HCC) CT ABD/PEL EXTERNAL Routine 03/14/2021 IMAGING 12:05 AM POST TENSIONING IRONWORKER HELPER CT HEAD EXTERNAL IMAGING Routine 03/14/2021 12:00 AM POST TENSIONING IRONWORKER HELPER documented in this encounter Results * IR PARACENTESIS DIAGNOSTIC + THERAPEUTIC (04/11/2021 2:44 PM POST TENSIONING IRONWORKER HELPER) Modality Anatomical Region Laterality Ultrasound Specimen Impressions [facility] - 04/11/2021 3:12 PM POST TENSIONING IRONWORKER HELPER Successful ultrasound guided paracentesis. 3700 mL of fluid was removed. I, Jose Jovel M.D, the attending radiologist, was present for the critical and turpin portions of the procedure with a midlevel, resident, and/or fellow participating. Overlapping portions were non turpin and I was immediately available. I interpret the critical and turpin portion of this procedure to have been needle access. @TT Approved by Fred Johnson M.D. on 04/11/2021 2:58 PM By my electronic signature, I attest that I have personally reviewed the images for this examination and formulated the interpretations and opinions expressed in this report Finalized by Jose Jovel M.D. on 04/11/2021 3:12 PM. Dictated by Fred Johnson M.D. on 04/11/2021 2:57 PM. Narrative [facility] RESULTS - 04/11/2021 3:12 PM POST TENSIONING IRONWORKER HELPER Ultrasound-guided paracentesis CLINICAL INDICATION: Ascites. Other cirrhosis of liver. SHIPPING HELPER: Fred Johnson M.D. and Jose Jovel M.D. MEDICATIONS: Lidocaine TECHNIQUE: Transverse real time images were obtained through the abdomen. The risks and benefits of this procedure were discussed and informed written consent was obtained prior to performing the procedure. The abdomen was then prepped and draped in usual sterile fashion. Limited ultrasound of the abdomen was performed. Under ultrasound guidance, a 5 Kazakh centesis needle was advanced into the peritoneal fluid collection and catheter advanced into the collection over the needle, and needle was removed. The catheter was connected to Vacutainer bottles and 3700 mL fluid was removed. There were no immediate complications of the procedure. No significant blood loss. Patient tolerated procedure well. FINDINGS: 3700 volume free peritoneal fluid demons trated on ultrasound. Procedure Note Jose Jovel MD - 04/11/2021 Ultrasound-guided paracentesis CLINICAL INDICATION: Ascites. Other cirrhosis of liver. SHIPPING HELPER: Fred Johnson M.D. and Jose Jovel M.D. MEDICATIONS: Lidocaine TECHNIQUE: Transverse real time images were obtained through the abdomen. The risks and benefits of this procedure were discussed and informed written consent was obtained prior to performing the procedure. The abdomen was then prepped and draped in usual sterile fashion. Limited ultrasound of the abdomen was performed. Under ultrasound guidance, a 5 Kazakh centesis needle was advanced into the peritoneal fluid collection and catheter advanced into the collection over the needle, and needle was removed. The catheter was connected to Vacutainer bottles and 3700 mL fluid was removed. There were no immediate complications of the procedure. No significant blood loss. Patient tolerated procedure well. FINDINGS: 3700 volume free peritoneal fluid demons trated on ultrasound. IMPRESSION Successful ultrasound guided paracentesis. 3700 mL of fluid was removed. Jose Toribio M.D, the attending radiologist, was present for the critical and turpin portions of the procedure with a midlevel, resident, and/or fellow participating. Overlapping portions were non turpin and I was immediately available. I interpret the critical and turpin portion of this procedure to have been needle access. @TT Approved by Fred Johnson M.D. on 04/11/2021 2:58 PM By my electronic signature, I attest that I have personally reviewed the images for this examination and formulated the interpretations and opinions expressed in this report Finalized by Jose Jovel M.D. on 04/11/2021 3:12 PM. Dictated by Fred Johnson M.D. on 04/11/2021 2:57 PM. Performing Organization Address City/State/ZIP Code P shane Number [facility] * CELL COUNT W/DIFF-FLUIDS (04/11/2021 2:17 PM POST TENSIONING IRONWORKER HELPER) White Blood 79 /UL [facility] Cells,Fluid Red Blood 6,300 /UL [facility] Cells,Fluid Segmented 3 % [facility] Neutrophils, Fluid Lymphocytes,Flu 47 % [facility] id Monocyte/Histo, 38 % [facility] Fluid Eosinophils, 1 % [facility] Fluid Other,Fluid 11 % [facility] Fluid Source FLUID [facility] PARACENTESIS FLUID Pathology HEMORRHAGIC FLUID [facility] Interpretation, Fluid Pathologist INTERPRETED BY CHIKI HUYNH M.D. [facility] Signature By the PATH SIGNATURE ABOVE , I attest that I have personally formulated the final interpretation expressed in this report and that the above diagnosis is based upon my examination of the slides and/or other material indicated in this report. Specimen Fluid - Body fluid sample (specimen) Performing Organization Address [facility]/ZIP Code P shane Number [facility] [address] [place] [address] * CT ABD/PEL EXTERNAL IMAGING (03/14/2021 12:05 AM POST TENSIONING IRONWORKER HELPER) Modality Anatomical Region Laterality Computed Radiography Specimen Narrative Scheduling, Silent - 04/11/2021 2:13 PM POST TENSIONING IRONWORKER HELPER This order has been auto finalized and does not contain a result. * CT HEAD EXTERNAL IMAGING (03/14/2021 12:00 AM POST TENSIONING IRONWORKER HELPER) Modality Anatomical Region Laterality Computed Radiography Specimen Narrative Scheduling, Silent - 04/11/2021 2:12 PM POST TENSIONING IRONWORKER HELPER This order has been auto finalized and does not contain a result. documented in this encounter Visit Diagnoses Diagnosis Other cirrhosis of liver (HCC) documented in this encounter Administered Medications Action Date Dose Rate Site Medication Order MAR Action 04/11/2021 2:15 PM POST TENSIONING IRONWORKER HELPER 25 g albumin 25% injection Given - New INTRA-PROCEDURE MED(CONT), Starting on Bag 04/11/21 at 1415, Until 04/11/21 at 1415 04/11/2021 1:17 PM POST TENSIONING IRONWORKER HELPER 4 mg ondansetron (ZOFRAN) injection 4 mg Given 4 mg, Intravenous, ONCE, 1 dose, On 04/11/21 at 1400 documented in this encounter Active and Recently Administered Medications Times are shown in POST TENSIONING IRONWORKER HELPER. 04/10/2021 04/11/2021 Medication Order 04/09/2021 1317 (Given - Provider: Natalya Lofton , CHRYSTAL) ondansetron (ZOFRAN) injection 4 mg (COMPLETED) 4 mg, Intravenous, ONCE, 1 dose, On Fri04/11/21 at 1400 04/10/2021 04/11/2021 Medication Order 04/09/2021 1415 (Given - New Bag - Provider: Luigi Rene RN) albumin 25% injection (COMPLETED) INTRA-PROCEDURE MED(CONT), Starting on Fri04/11/21 at 1415, Until Fri04/11/21 at 1415 documented in this encounter Additional Health Concerns Noted Time Assessment 04/11/2021 1:06 PM POST TENSIONING IRONWORKER HELPER A fall risk assessment has been complet ed for the patient 12/07/2020 3:18 PM CDT PHQ-2 Depression Total Score: 2 documented as of this encounter Care Teams Start Date End Date Director Banking Relationship Specialty 05/15/20 Garfield Gray MD PCP - [address] [phone] 06/13/20 Riley Hopson MD Consulting Cardiovascul [address] Physician ar Disease [address] [place] [id number] 12/20/20 Gino Pandya APRN-BAKERY ASSISTANT Nurse Nurse [address] [place], [place] [phone] [place] [address] 01/19/21 Teri Brandon Continuum of Care Case Management documented as of this encounter
--- OUTSIDE RECORDS SUMMARY | 2021-04-14 18:59 | XMS REPORT | Encounter Summary ---
Author Author [facility] Organization [facility] Address Unknown Phone Unavailable Care Team Providers Care Financial Aid Director Name Role Phone Self, Garfield OLVERA PCP Riley Hopson MD [phone] Gino Pandya APRN-FIRE ENGINE PUMP OPERATOR [phone] Teri Barndon [phone] Unavailable Reason for Visit * Reason Onset Date Comments Follow-up Phone Call 04/10/2021 Spoke to [facility] about Lab results and gave direction Follow-up Phone Call 04/10/2021 Spoke to Pt about lab work and coordination of care-She informed me that [facility] would be her [facility] Follow-up Phone Call 04/10/2021 Spoke to Karen cuenca about necessary lab work Encounter Details Care Team Description Date Type Department Sherin Mata BSN Follow-up Phone Call (Spoke to [facility] about Lab results and gave direction); Follow-up Phone Call (Spoke to Pt about lab work and coordination of care-She informed me that [facility] would be her HH); Follow-up Phone Call (Spoke to [facility] about necessary lab work) 04/10/2021 Telephone Cardiology: [facility] 4000 [facility] Level 1, [address] [place] [address] Social History Date Tobacco Use Types Packs/Day Years Used Never Smoker Smokeless Tobacco: Never Used Comments Alcohol Use Standard Drinks/Week Not Currently 0 (1 standard drink = 0.6 o z pure alcohol) Sex Assigned at Date Recorded Female 06/01/2020 1:44 PM FACILITIES CLERK Date Recorded COVID-19 Exposure Response 04/06/2021 12:38 PM FACILITIES CLERK In the last month, have you been [...] Telephone Encounter - Sherin Mata BSN - 04/10/2021 3:58 PM FACILITIES CLERK Images from the original note were not included. Fiordaliza Harding, INCIDENT RESPONSE CONSULTANT-FIRE ENGINE PUMP OPERATOR P Cvm Nurse Hf Team Coral I have no idea if anyone addressed this. If no one has, can she get 80mEq of K + today and then 20meq daily and recheck BMP on Friday of this week? Spoke to Danny RN @ [facility] to inform her of above recommendations. She r ead back and verified orders. Additionally, she informed this RN that pt was be ing discharged from [facility] and that [facility] would be back on the kera e. Then called pt to inform her the above orders so that she is aware of P.O.C. Sh e verbalized understanding and confirmed that [facility] would be back on her kera e. Lastly, called to speak w/[facility] and spoke to Renetta) who reports we would need a new order for HH. Additionally, [facility] had inquiries on pts propriety for HH as opposed to Palliative Care. Additionally, we discussed a Pleurx valve as opposed to Bi weekly paracentesis. Message sent to [facility] w/inquiries surrou nding all requests. New HH orders will need to be faxed to [phone]. LITIES CLERK documented in this encounter Plan of Treatment Care Team Description Date Type Specialty Carlos Longo MD [address] [place] [address] Giancarlo Meneses MD 4000 [facility] 2nd [place] [address] Clarissa Harmon Stephanie, RT(R)(),LRT 04/16/2021 Hospital Radiology Encounter Order Schedule Name Type Priority Associated Diag noses Expected: 04/13/2021 (Approximate), Expi res: 04/10/2022 BASIC METABOLIC PANEL Lab Routine Chronic heart failure with preserved ejection fraction (HCC) Hx of mechanical aortic valve replacement Severe tricuspid regurgitation History of endocarditis documented as of this encounter Goals Goal Patient Associated Recent Progress Patient-Stat Aut hor Goal Type Problems ed? Improve [facility] On track (03/20/2021 Yes Sheldon, 1:41 PM FACILITIES CLERK) CHRYSTAL Singh [facility] On track (03/20/2021 Yes Sheldon, 1:41 PM FACILITIES CLERK) CHRYSTAL Singh Note: "To get better and stronger." documented as of this encounter Visit Diagnoses Diagnosis Chronic heart failure with preserved ej ection fraction (HCC) - Primary Hx of mechanical aortic valve replaceme nt Heart valve replaced by other means Severe tricuspid regurgitation Diseases of tricuspid valve History of endocarditis Personal history of other diseases of c irculatory system documented in this encounter Additional Health Concerns Noted Time Assessment 04/06/2021 12:41 PM FACILITIES CLERK A fall risk assessment has been complet ed for the patient 12/07/2020 3:18 PM CDT PHQ-2 Depression Total Score: 2 documented as of this encounter Care Teams Start Date End Date Financial Aid Director Relationship Specialty 05/15/20 Garfield Gray MD PCP - General [address] Medicine [place], [place] [address] 06/13/20 Riley Hopson MD Consulting Cardiovascul [address] Physician [address] Disease [address] [place] [id number] 12/20/20 Gino Pandya, INCIDENT RESPONSE CONSULTANT-FIRE ENGINE PUMP OPERATOR Nurse Nurse 4000 [facility] Practitioner Practitioner [facility] , [place] [address] 01/19/21 Teri Brandon Continuum of Care Case Management documented as of this encounter
--- OUTSIDE RECORDS SUMMARY | 2021-04-14 18:59 | XMS REPORT | Encounter Summary ---
Author Author [facility] Organization [facility] Address Unknown Phone Unavailable Care Team Providers Care Caponizer Name Role Phone Self, Garfield OLVERA PCP Riley Hopson MD [phone] Gino Pandya APRN-AQUACULTURE PROGRAM DIRECTOR [phone] Teri Brandon [phone] Unavailable Encounter Details Care Team Description Date Type Department 04/11/2021 Travel Social History Date Tobacco Use Types Packs/Day Years Used Never Smoker Smokeless Tobacco: Never Used Comments: secondhand Comments Alcohol Use Standard Drinks/Week Not Currently 0 (1 standard drink = 0.6 o z pure alcohol) Sex Assigned at Date Recorded Female 06/01/2020 1:44 PM MOUSE BREEDER Date Recorded COVID-19 Exposure Response 04/11/2021 1:00 PM MOUSE BREEDER In the last month, have you been [...] Date Type Specialty Carlos Longo MD 4000 [facility] [place] [address] Giancarlo Meneses MD 4000 [facility] 2nd [place] [address] Clarissa Harmon Stephanie, RT(R)(),LRT 04/16/2021 Hospital Radiology Encounter documented as of this encounter Goals Goal Patient Associated Recent Progress Patient-Stat Aut hor Goal Type Problems ed? Improve [facility] On track (03/20/2021 Yes Sheldon, 1:41 PM MOUSE BREEDER) CHRYSTAL Singh Improve [facility] On track (03/20/2021 Yes Sheldon, 1:41 PM MOUSE BREEDER) CHRYSTAL Singh Note: "To get better and stronger." documented as of this encounter Visit Diagnoses Not on filedocumented in this encounter Additional Health Concerns Noted Time Assessment 04/11/2021 1:06 PM MOUSE BREEDER A fall risk assessment has been complet ed for the patient 12/07/2020 3:18 PM CDT PHQ-2 Depression Total Score: 2 documented as of this encounter Care Teams Start Date End Date Caponizer Relationship Specialty 05/15/20 Garfield Gray MD PCP - [address] [phone] 06/13/20 Riley Hopson MD Consulting Cardiovascul [address] Physician [address] Disease [address] [place], [place] [address] 12/20/20 Gino Pandya, CONING MACHINE OPERATOR-AQUACULTURE PROGRAM DIRECTOR Nurse Nurse 4000 [facility] , [place] [address] 01/19/21 Teri Brandon Continuum of Care Case Management documented as of this encounter
--- OUTSIDE RECORDS SUMMARY | 2021-04-14 18:59 | XMS REPORT | Encounter Summary ---
Author Author [facility] Organization [facility] Address Unknown Phone Unavailable Care Team Providers Care Intelligence Operations Specialist Name Role Phone Self, Garfield OLVERA PCP Riley Hopson MD [phone] Gino Pandya BOX BRANDER-LAYDOWN MACHINE OPERATOR [phone] Teri Brandon [phone] Unavailable Reason for Visit * Reason Comments Anticoagulation INR 2.7 Encounter Details Care Team Description Date Type Department Kailey Irizarry Anticoagulation (INR 2.7) 04/10/2021 Anticoagulation Cardiology: [facility] [address] [place] [address] 1, [address] [place] [address] Social History Date Tobacco Use Types Packs/Day Years Used Never Smoker Smokeless Tobacco: Never Used Comments Alcohol Use Standard Drinks/Week Not Currently 0 (1 standard drink = 0.6 o z pure alcohol) Sex Assigned at Date Recorded Female 06/01/2020 1:44 PM COMPLEX HUMAN RESOURCES MANAGER Date Recorded COVID-19 Exposure Response 04/06/2021 12:38 PM COMPLEX HUMAN RESOURCES MANAGER In the last month, have you [...] as of this encounter Progress Notes * Kailey Irizarry - 04/10/2021 10:25 AM COMPLEX HUMAN RESOURCES MANAGER Spoke with olena at [facility], . Warfarin dosing and INR rech dashawn plans were verified today, who verbalized understanding of instruction. Debra ent will be [facility] of this week 04/12.. Called patient and spoke with her regarding instructions given to [facility]. Pt will use home monitor to recheck lab when she is discharge home. Recheck Mo nday 04/17/21. Repeat instructions provided by pt, verbalized understanding of do sing and plan. Pt also informed this nurse, that she received 6mg last night, no t the 3mg that was on tracker. LEX HUMAN RESOURCES MANAGER documented in this encounter Plan of Treatment Care Team Description Date Type Specialty Carlos Longo MD 4000 [facility] [address] [place] [address] Giancarlo Meneses MD 4000 [facility] [address] [place] [address] Clarissa Harmon Stephanie, RT(R)(),LRT 04/16/2021 Hospital Radiology Encounter documented as of this encounter Goals Goal Patient Associated Recent Progress Patient-Stat Aut hor Goal Type Problems ed? Improve [facility] On track (03/20/2021 Yes Sheldon, 1:41 PM COMPLEX HUMAN RESOURCES MANAGER) CHRYSTAL Singh [facility] On track (03/20/2021 Yes Sheldon, 1:41 PM COMPLEX HUMAN RESOURCES MANAGER) CHRYSTAL Singh Note: "To get better and stronger." documented as of this encounter Visit Diagnoses Diagnosis Hx of mechanical aortic valve replaceme nt - Primary Heart valve replaced by other means Chronic anticoagulation Long-term (current) use of anticoagulan ts Paroxysmal atrial fibrillation (HCC) Atrial fibrillation documented in this encounter Additional Health Concerns Noted Time Assessment 04/06/2021 12:41 PM COMPLEX HUMAN RESOURCES MANAGER A fall risk assessment has been complet ed for the patient 12/07/2020 3:18 PM CDT PHQ-2 Depression Total Score: 2 documented as of this encounter Care Teams Start Date End Date Intelligence Operations Specialist Relationship Specialty 05/15/20 Garfield Gray MD PCP - [address] [place] [address] 06/13/20 Riley Hopson MD Consulting Cardiovascul [address] Physician ar Disease [address] [place], [place] [address] 12/20/20 Gino Pandya, BOX BRANDER-LAYDOWN MACHINE OPERATOR Nurse Nurse [address] [place] [address] 01/19/21 Teri Brandon Continuum of Care Case Management documented as of this encounter
--- OUTSIDE RECORDS SUMMARY | 2021-04-14 18:59 | XMS REPORT | Encounter Summary ---
Author Author [facility] Organization [facility] Address Unknown Phone Unavailable Care Team Providers Care Neurology Teacher Name Role Phone Self, Garfield OLVERA PCP Riley Hopson MD [phone] Gino Pandya FILLING MACHINE SET UP MECHANIC-NUTRITIONIST [phone] Teri Brandon [phone] Unavailable Encounter Details Care Team Description Date Type Department Cammy Fine LPN 04/12/2021 Telephone Cardiology: [facility] [address] [place] [address] 1, [address] [place] [address] Social History Date Tobacco Use Types Packs/Day Years Used Never Smoker Smokeless Tobacco: Never Used Comments: secondhand Comments Alcohol Use Standard Drinks/Week Not Currently 0 (1 standard drink = 0.6 o z pure alcohol) Sex Assigned at Date Recorded Female 06/01/2020 1:44 PM SHOVE UP Date Recorded COVID-19 Exposure Response 04/11/2021 1:00 PM SHOVE UP In the last month, have you been [...] Date End Date Prescription Sig Dispensed Refills 04/12/2021 metoprolol tartrate 25 mg Take one-half 90 tablet 3 tablet tablet by mouth twice daily. documented in this encounter Miscellaneous Notes * Telephone Encounter - Cammy Fine LPN - 04/12/2021 2:49 PM SHOVE UP E UP * Telephone Encounter - Cammy Fine LPN - 04/12/2021 8:58 AM SHOVE UP Spoke with pt, she is going to reschedule OV and echo today because she does not want to come due to coming to yesterday. Pt notes she missed all her evening medications last night, advised she resume medications as prescribed this AM. E UP documented in this encounter Plan of Treatment Care Team Description Date Type Specialty Carlos Longo MD 4000 [facility] [address] [place] [address] Giancarlo Meneses MD 4000 [facility] 2[address] [place] [address] Clarissa Harmon Stephanie, RT(R)(),LRT 04/16/2021 Hospital Radiology Encounter documented as of this encounter Goals Goal Patient Associated Recent Progress Patient-Stat Aut hor Goal Type Problems ed? Improve [facility] On track (03/20/2021 Yes Sheldon, 1:41 PM SHOVE UP) CHRYSTAL Singh [facility] On track (03/20/2021 Yes Sheldon, 1:41 PM SHOVE UP) CHRYSTAL Singh Note: "To get better and stronger." documented as of this encounter Visit Diagnoses * Addendum Note - Cammy Fine LPN - 04/12/2021 3:06 PM SHOVE UP Addended by: CAMMY FINE on: 04/12/2021 03:06 PM Modules accepted: Orders E UP documented in this encounter Discontinued Medications Start Date End Date Medication Sig Discontinue Reason 03/22/2021 04/12/2021 metoprolol tartrate 25 mg Take Reorder tablet one-half tablet by mouth twice daily. documented as of this encounter Additional Health Concerns Noted Time Assessment 04/11/2021 1:06 PM SHOVE UP A fall risk assessment has been complet ed for the patient 12/07/2020 3:18 PM CDT PHQ-2 Depression Total Score: 2 documented as of this encounter Care Teams Start Date End Date Neurology Teacher Relationship Specialty 05/15/20 Garfield Gray MD PCP - [address] [address] 06/13/20 Riley Hopson MD Consulting Cardiovascul [address] Physician ar Disease [address] [place], [place] [address] 12/20/20 Gino Pandya, FILLING MACHINE SET UP MECHANIC-NUTRITIONIST Nurse Nurse [address] [place] [phone] 01/19/21 Teri Brandon Continuum of Care Case Management documented as of this encounter
--- OUTSIDE RECORDS SUMMARY | 2021-04-14 18:59 | XMS REPORT | Encounter Summary ---
Author Author [facility] Organization [facility] Address Unknown Phone Unavailable Care Team Providers Care Quill Cleaner Name Role Phone Self, Garfield OLVERA PCP Riley Hopson MD [phone] Gino Pandya APRN-GENERAL COUNSELOR [phone] Teri Brandon [phone] Unavailable Encounter Details Care Team Description Date Type Department Christy Soriano RN 04/12/2021 Telephone Cardiology: [facility] 4000 [facility] [address], [address] [place] [address] Social History Date Tobacco Use Types Packs/Day Years Used Never Smoker Smokeless Tobacco: Never Used Comments: secondhand Comments Alcohol Use Standard Drinks/Week Not Currently 0 (1 standard drink = 0.6 o z pure alcohol) Sex Assigned at Date Recorded Female 06/01/2020 1:44 PM TUBE HANDLER Date Recorded COVID-19 Exposure Response 04/11/2021 1:00 PM TUBE HANDLER In the last month, have you been [...] encounter Miscellaneous Notes * Telephone Encounter - Christy Soriano RN - 04/12/2021 9:50 AM TUBE HANDLER Spoke to Ms. Paulson. Discussed next available date to r/s her valve evaluation. She states she is working to get a schedule again for her paracentesis. Advised that we will reschedule and the contact closer to her visit to confirm the appoi ntments will work for her. HANDLER * Telephone Encounter - Christy Soriano RN - 04/12/2021 9:41 AM TUBE HANDLER ----- Message from Nithya Cherry RN sent at 04/12/2021 9:25 AM TUBE HANDLER ----- Regarding: RE: R/S Appt This is valve clinic appt. I will forward to Christy and Manoj to reschedule pt's ap pts. Thanks ----- Message ----- From: Summer Saba RN Sent: 04/12/2021 9:09 AM TUBE HANDLER To: Nithya Cherry RN Subject: FW: R/S Appt ----- Message ----- From: Tre Amin Sent: 04/12/2021 9:08 AM TUBE HANDLER To: Cvm Nurse Interventional Team Maynard Subject: R/S Appt Alfredo Pt called to r/s appt with Dr Walker and Echo, Please Advise Thank You HANDLER documented in this encounter Plan of Treatment Care Team Description Date Type Specialty Carlos Longo MD 4000 [facility] [address] [place], [place] [phone] Giancarlo Meneses MD 4000 [facility] 2nd [place] [address] Clarissa Harmon Stephanie, RT(R)(),LRT 04/16/2021 Hospital Radiology Encounter documented as of this encounter Goals Goal Patient Associated Recent Progress Patient-Stat Aut hor Goal Type Problems ed? Improve [facility] On track (03/20/2021 Yes Sheldon, 1:41 PM TUBE HANDLER) CHRYSTAL Singh Improve [facility] On track (03/20/2021 Yes Sheldon, 1:41 PM TUBE HANDLER) CHRYSTAL Singh Note: "To get better and stronger." documented as of this encounter Visit Diagnoses Not on filedocumented in this encounter Additional Health Concerns Noted Time Assessment 04/11/2021 1:06 PM TUBE HANDLER A fall risk assessment has been complet ed for the patient 12/07/2020 3:18 PM CDT PHQ-2 Depression Total Score: 2 documented as of this encounter Care Teams Start Date End Date Quill Cleaner Relationship Specialty 05/15/20 Garfield Gray MD PCP - [address] [address] 06/13/20 Riley Hopson MD Consulting Cardiovascul [address] Physician ar Disease [address] [place], [place] [address] 12/20/20 Gino Pandya, MAIL CENSOR-GENERAL COUNSELOR Nurse Nurse [address] [place] [phone] 01/19/21 Teri Brnadon Continuum of Care Case Management documented as of this encounter
--- OUTSIDE RECORDS SUMMARY | 2021-04-14 18:59 | XMS REPORT | Encounter Summary ---
Author Author [facility] Organization [facility] Address Unknown Phone Unavailable Care Team Providers Care Operations Section Manager Name Role Phone Self, Garfield OLVERA PCP Riley Hopson MD [phone] Gino Pandya BUTCHER CHICK[employer] FISH-REPORT ANALYST [phone] Teri Brandon [phone] Unavailable Reason for Visit * Reason Onset Date Comments Appointment Request 04/12/2021 Encounter Details Care Team Description Date Type Department Allison Marti MD 4000 [facility] [id number] [place], [place] [phone] Appointment Request 04/12/2021 Telephone Transplant: Main Rachael coto, [facility] 4000 [facility] Level 1, [address] [place] [address] Social History Date Tobacco Use Types Packs/Day Years Used Never Smoker Smokeless Tobacco: Never Used Comments: secondhand Comments Alcohol Use Standard Drinks/Week Not Currently 0 (1 standard drink = 0.6 o z pure alcohol) Sex Assigned at Date Recorded Female 06/01/2020 1:44 PM CRADLE PLACER Date Recorded COVID-19 Exposure Response 04/11/2021 1:00 PM CRADLE PLACER In the last month, have you [...] * Telephone Encounter - Adriana Gallegos - 04/12/2021 12:20 PM CRADLE PLACER Received New Patient Referral from Dr Longo yet patient is estab with [facility] ed to see Radha on June 08. Not sure if pt needs a sooner appt or not. ?? I riddhi l close the new pt referral. thx LE PLACER documented in this encounter Plan of Treatment Care Team Description Date Type Specialty Carlos Longo MD 4000 [facility] V[address] [place] [address] Giancarlo Meneses MD 4000 [facility] 2nd [place] [address] Clarissa Harmon Stephanie, RT(R)(),LRT 04/16/2021 Hospital Radiology Encounter documented as of this encounter Goals Goal Patient Associated Recent Progress Patient-Stat Aut hor Goal Type Problems ed? Improve [facility] On track (03/20/2021 Yes Sheldon, 1:41 PM CRADLE PLACER) CHRYSTAL Singh Improve [facility] On track (03/20/2021 Yes Sheldon, 1:41 PM CRADLE PLACER) CHRYSTAL Singh Note: "To get better and stronger." documented as of this encounter Visit Diagnoses Not on filedocumented in this encounter Additional Health Concerns Noted Time Assessment 04/11/2021 1:06 PM CRADLE PLACER A fall risk assessment has been complet ed for the patient 12/07/2020 3:18 PM CDT PHQ-2 Depression Total Score: 2 documented as of this encounter Care Teams Start Date End Date Operations Section Manager Relationship Specialty 05/15/20 Garfield Gray MD PCP - [address] [address] 06/13/20 Riley Hopson MD Consulting Cardiovascul [address] Physician ar Disease [address] [place] [address] 12/20/20 Gino Pandya, BUTCHER [employer] FISH-REPORT ANALYST Nurse Nurse [address] [place] [phone] 01/19/21 Teri Brandon Continuum of Care Case Management documented as of this encounter
--- OUTSIDE RECORDS SUMMARY | 2021-04-14 18:59 | XMS REPORT | Encounter Summary ---
Author Author [facility] Organization [facility] Address Unknown Phone Unavailable Care Team Providers Care Resource Conservationist Name Role Phone Self, Garfield OLVERA PCP Riley Hopson MD [phone] Gino Pandya SUPERVISOR WET END-ANIMAL CARE SUPERVISOR [phone] Teri Brandon [phone] Unavailable Reason for Referral * Consult, Test & Treat (Routine) - Closed Diagnoses / Procedures Referred By Contact [facility] Diagnoses Chronic heart failure with preserved ejection fraction (HCC) Hx of mechanical aortic valve replacement History of endocarditis Alcoholic cirrhosis, unspecified whether ascites present (HCC) Stage 3b chronic kidney disease (HCC) Carlos Longo MD [id number] [place] [address] [facility] Gen Hepatology Cl [address] [facility] [address] [place] [address] Hepatology Referral ID Status Reason Start Date Expiration Visits Vi sits Date Requested Authorized [id number] Closed Specialty Services 04/12/2021 04/12/2022 1 1 Required Comments Please give recommendations for Peurx valve and pt appropriateness for this as she is coming to hospital twice a week to have paracentesis performed. 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 * Consult, Test & Treat (Routine) - Authorized Diagnoses / Procedures Referred By Contact [facility] Chronic heart failure with preserved ejection fraction (HCC) Hx of mechanical aortic valve replacement History of endocarditis Alcoholic cirrhosis, unspecified whether ascites present (HCC) Stage 3b chronic kidney disease (HCC) Carlos Longo MD [id number] [place] [address] [facility] [address] [facility] [address], [address] [place] [address] Cardiology Referral ID Status Reason Start Date Expiration Visits Vi sits Date Requested Authorized [id number] Authorized Specialty Services 04/12/2021 04/12/2022 1 1 Required Answer Question As Soon As Possible When 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 Encounter Details Care Team Description Date Type Department Sherin Mata BSN 04/12/2021 Telephone Cardiology: [facility] [address] [facility] [address], [address] [place] [address] Social History Date Tobacco Use Types Packs/Day Years Used Never Smoker Smokeless Tobacco: Never Used Comments: secondhand Comments Alcohol Use Standard Drinks/Week Not Currently 0 (1 standard drink = 0.6 o z pure alcohol) Sex Assigned at Date Recorded Female 06/01/2020 1:44 PM 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 Date Recorded COVID-19 Exposure Response 04/11/2021 1:00 PM 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 In the last month, have you [...] Date Type Specialty Carlos Longo MD [id number] [place] [address] Giancarlo Meneses MD [address] [facility] [address] [place] [address] Clarissa Harmon Stephanie, RT(R)(),LRT 04/16/2021 [facility] Radiology Encounter Order Schedule Name Type Priority Associated Diag noses Ordered: 04/12/2021 AMB REFERRAL PALLIATIVE Outpatient Routine Chroni c heart failure CARE Referral with preserved ejec tion fraction (HCC) Hx of mechanical aortic valve replacement History of endocarditis Alcoholic cirrhosis, unspecified whether ascites present (HCC) Stage 3b chronic kidney disease (HCC) Ordered: 04/12/2021 AMB REFERRAL TO Outpatient Routine Chronic heart failure HEPATOLOGY Referral with preserved ejec tion fraction (HCC) Hx of mechanical aortic valve replacement History of endocarditis Alcoholic cirrhosis, unspecified whether ascites present (HCC) Stage 3b chronic kidney disease (HCC) documented as of this encounter Goals Goal Patient Associated Recent Progress Patient-Stat Aut hor Goal Type Problems ed? Improve [facility] On track (03/20/2021 Yes Sheldon, 1:41 PM 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) CHRYSTAL Singh [facility] On track (03/20/2021 Yes Sheldon, 1:41 PM 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) CHRYSTAL Singh Note: "To get better and stronger." documented as of this encounter Visit Diagnoses Diagnosis Chronic heart failure with preserved ej ection fraction (HCC) - Primary Hx of mechanical aortic valve replaceme nt Heart valve replaced by other means History of endocarditis Personal history of other diseases of c irculatory system Alcoholic cirrhosis, unspecified whethe r ascites present (HCC) Stage 3b chronic kidney disease (HCC) documented in this encounter Additional Health Concerns Noted Time Assessment 04/11/2021 1:06 PM 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 A fall risk assessment has been complet ed for the patient 12/07/2020 3:18 PM CDT PHQ-2 Depression Total Score: 2 documented as of this encounter Care Teams Start Date End Date Resource Conservationist Relationship Specialty 05/15/20 Garfield Gray MD PCP - General [address] [place] [address] 06/13/20 Riley Hopson MD Consulting Cardiovascul [address] Physician ar Disease [address] [place] [id number] 12/20/20 Gino Pandya, SUPERVISOR WET END-ANIMAL CARE SUPERVISOR Nurse Nurse [address] [place] [address] [phone] 01/19/21 Teri Brandon Continuum of Care Case Management documented as of this encounter
--- OUTSIDE RECORDS SUMMARY | 2021-04-14 18:59 | XMS REPORT | Clinical Summary ---
Author Author [facility] Organization [facility] Address Unknown Phone Unavailable Care Team Providers Care Metal Numerical Tool Programmer Name Role Phone Self, Garfield OLVERA PCP Riley Hopson MD [phone] Gino Pandya ELECTRICAL MECHANICAL TECHNICIAN-FUNDRAISING MANAGER [phone] Teri Brandon [phone] Unavailable Source Comments Some departments are not documenting in the electronic medical record. If you d o not see the information that you expected, contact Release of Information in [facility] Information Management department at [phone] for further assistan ce in locating additional records.[facility] Allergies No known active allergies Medications End Date Status Medication Sig Dispensed Refills Start Date Active levothyroxine (SYNTHROID) Take 75 mcg 0 75 mcg tablet by mouth daily 30 minutes before breakfast. Active fluticasone propionate Apply 1 spray 0 (FLONASE) 50 to each mcg/actuation nasal nostril as spray, suspension directed daily. Shake bottle gently before using. Active [...] tablet by 1 mouth twice daily. Active midodrine (PROAMATINE) 5 Take three 270 tablet 3 1 mg tablet tablets by 1 mouth three times daily. Active ferrous gluconate Take one 90 tablet 1 01/05/20 2 (FERGON) 240 mg (27 mg tablet by 1 iron) tablet mouth daily. Additional Information Patient taking differently: 240 mg Oral AT BEDTIME DAILY, Informant: Med List, Reported on 03/15/2021 Active oxybutynin chloride Take one 180 tablet 0 (DITROPAN) 5 mg tablet tablet by 1 mouth daily. Active ascorbic acid (VITAMIN C) Take 500 mg 0 500 mg tablet by mouth daily. Active MULTIVITAMIN PO Take 1 tablet 0 by mouth daily. Active acetaminophen (TYLENOL Take 1,000 mg 0 EXTRA STRENGTH) 500 mg by mouth tablet every 4 hours as needed for Pain. Max of 4,000 mg of acetaminophen in 24 hours. Active rifAXIMin (XIFAXAN) 550 Take one 60 tablet 11 mg tablet tablet by 1 mouth twice daily. Active lactulose 10 gram/15 mL Take 30 mL by 0 oral solution mouth every 4 1 hours. Titrate to have 3-4 bowel movements per day. Active warfarin (COUMADIN) 1 mg Take three 120 tablet 0 1 tablet tablets by 1 mouth daily. 03/17/2022 Active bumetanide (BUMEX) 1 mg Take two 360 tablet 3 tablet tablets by 1 mouth twice daily for 360 days. Will need creatinine/re nal function rechecked on 03/25 prior to resuming diuretics. Cardiology (Dr. Carlos Longo) managing. Active spironolactone Take one 540 tablet 3 (ALDACTONE) 25 mg tablet tablet by 1 mouth twice daily. Take with food. Will need creatinine/re nal function rechecked on 03/25 prior to resuming diuretics. Cardiology (Dr. Carlos Longo) managing. Active ciprofloxacin (CIPRO) 500 Take one 30 tablet 1 mg tablet tablet by 2 mouth daily. Active ondansetron HCL (ZOFRAN) Take one 30 tablet 0 0 4 mg tablet tablet by 2 mouth every 8 hours as needed for Nausea or Vomiting. Active metoprolol tartrate 25 mg Take one-half 90 tablet 3 tablet tablet by 2 mouth twice daily. 03/22/2021 Discontinued (Reorder) warfarin (COUMADIN) 1 mg Take two 120 tablet 0 1 tablet tablets by 1 mouth daily. 03/22/2021 Discontinued (Reorder) bumetanide (BUMEX) 1 mg Take five 900 tablet 3 tablet tablets by 1 mouth twice daily for 360 days. 03/22/2021 Discontinued empagliflozin (JARDIANCE) Take one 90 tablet 3 10 mg tablet tablet by 1 mouth daily. 03/22/2021 Discontinued (Reorder) spironolactone Take three 540 tablet 3 (ALDACTONE) 25 mg tablet tablets by 1 mouth twice daily. Take with food. 03/22/2021 Discontinued (Reorder) bumetanide (BUMEX) 1 mg Take two 360 tablet 3 tablet tablets by 1 mouth twice daily for 360 days. Will need creatinine/re nal function rechecked on 03/25 prior to resuming diuretics. Cardiology (Dr. Carlos Longo) managing. 03/22/2021 Discontinued enoxaparin (LOVENOX) 60 Inject 0.6 mL 0 mg syringe under the 1 skin every 12 hours. 04/12/2021 Discontinued (Reorder) metoprolol tartrate 25 mg Take one-half 180 tablet 0 tablet tablet by 1 mouth twice daily. 03/22/2021 Discontinued (Reorder) spironolactone Take one 540 tablet 3 (ALDACTONE) 25 mg tablet tablet by 1 mouth twice daily. Take with food.To start 03/24/2021. Will need creatinine/re nal function rechecked on 03/25 prior to resuming diuretics. Cardiology (Dr. Carlos Longo) managing. 03/28/2021 Discontinued (Ineffective Th erapy) enoxaparin (LOVENOX) 60 Inject 0.6 mL 0 mg syringe under the 1 skin daily. Active Problems Patient Care Coordination Note Please complete a medical screening exam to rule out emergent issues. If no emergent needs are identified, please contact the MVP Team. MVP Team Contact: REI Mckinley, or Voalte Utilization: ED Visits: 0 Admissions: 7 within the past 12 months [place] Former of Utilization: Clinical: Disease Progression/Chronic Symptoms Common [...] with clinics at symptom onset Community Support: [facility] [phone] (also offers hospice services); DPOA (patient's sons): Rosales Vishal ([phone]), Blair Chambers ([phone]) Providers: PCP: (external) Gabriel Gray ([phone]); Palliative: Gino Pandya ([phone]); CVM: Basilia Gaitan ([phone]); Transplant: Jeanette Garcia ([phone]); HF: Junaid Longo ([phone]); Urology: Fernie Abreu ([phone]) Disposition on last DC: 03/22/21 to [facility] [place] ([phone]) Date of last MVP Communication: 03/22/21 Problem Noted Date Encephalopathy 03/14/2021 Fall 2021 Acute kidney injury [...] 11/04/2020 D AYS ADMITTED: LOS: 2 days VISHAL, Binh Cano is 60 y.o. female wit h history [...] Encounters Care Team Description Date Type Specialty Allison Marti MD Appointment Request 04/12/2021 Telephone Transplant Surgery Sherin Mata BSN 04/12/2021 Telephone Cardiology Christy Soriano RN 04/12/2021 Telephone Cardiology Fernie Camargo LPN 04/12/2021 Telephone Cardiology Giancarlo Meneses MD Lind, Ashley, RT(R)(),LRT Jose Jovel MD Howey, Kenneth, CHRYSTAL Other cirrhosis of liver (HCC) 04/11/2021 Hospital Radiology Encounter 04/11/2021 Travel Sherin Mata BSN Follow-up Phone Call (Spoke to Medical [facility] about Lab results and gave direction); Follow-up Phone Call (Spoke to Pt about lab work and coordination of care-She informed me that [facility] would be her HH); Follow-up Phone Call (Spoke to [facility] about necessary lab work) 04/10/2021 Telephone Cardiology Kailey Irizarry Anticoagulation (INR 2.7) 04/10/2021 Anticoagulation Cardiology Fernie Camargo, MEDICAID SPECIALIST 04/10/2021 Documentation Cardiology Rufino Springer MA Labs Only 04/10/2021 Documentation Cardiology Gino Pandya APRN-FUNDRAISING MANAGER Scheduling 04/10/2021 Telephone Palliative Care Allison Marti MD Lind, Ashley, RT(R)(),LRT Larry Tatum MD Canceled (Patient-Rescheduled) 04/06/2021 Hospital Radiology Encounter Larry Tatum MD Beisser, Andy, Marly Bradley, RT(R)(CV),LRT Chronic heart failure with preserved ejection fraction (HCC) 04/06/2021 Hospital Radiology Encounter Susan Palomino, CHRYSTAL 04/06/2021 Anticoagulation Cardiology 04/06/2021 Travel Gino Pandya APRN-FUNDRAISING MANAGER Scheduling 04/05/2021 Telephone Palliative Care Josi Purvis BSN Anticoagulation (INR 1.6) 04/04/2021 Anticoagulation Cardiology Fernie Camargo, MEDICAID SPECIALIST Lab Results 04/04/2021 Documentation Cardiology Jeanette Garcia APRN-FUNDRAISING MANAGER Other 04/04/2021 Telephone Transplant Surgery Blair Greene MD Livingston, Tiffany, RT(R)(),LRT Miracle Morales RN Reeves, Alan R, MD Chronic heart failure with preserved eje ction fraction (HCC) 04/03/2021 Hospital Radiology Encounter 04/03/2021 Travel Sherin Mata BSN Follow-up Phone Call 04/02/2021 Telephone Cardiology Jeanette Garcia APRN-FUNDRAISING MANAGER Other cirrhosis of liver (HCC) (Primary Dx) 04/02/2021 Orders Only Transplant Surgery Sherin Mata BSN Chronic heart failure with preserved eje ction fraction (HCC); Other cirrhosis of liver (HCC); Encephalopathy; Pre-procedure lab exam; Severe tricuspid regurgitation 04/02/2021 Orders Only Cardiology Jose Jovel MD Clegg, Rachel, RT(R)(),LRT Ruddy Connelly MD Schreiber, Anna, RN Other cirrhosis of liver (HCC) 03/30/2021 Hospital Radiology Encounter Sherin Mata BSN 03/30/2021 Anticoagulation Cardiology Fernie Camargo LPN Lab Results 03/30/2021 Documentation Cardiology 03/30/2021 Travel Sherin Mata BSN Patient Questions (Spoke to facility abo ia pt current status as well as Lab work for tomorrow) 03/29/2021 Telephone Cardiology Caitlin Sparks Care Coordination 03/28/2021 Telephone Cardiology Allison Marti MD Other 03/28/2021 Telephone Transplant Surgery Sherin Mata BSN Follow-up Phone Call ([facility] give [facility] per [facility]) 03/28/2021 Telephone Cardiology Vilma Parham RN Anticoagulation (INR 1.8) 03/27/2021 Anticoagulation Cardiology Sherin Mata BSN Follow-up Phone Call (Called to [facility] [place] to review current options for P.O.C. ) 03/27/2021 Telephone Cardiology Shea Barnes Labs Only 03/27/2021 Documentation Cardiology Christy Soriano RN Appointment (Reschedule Valve evaluation ) 03/27/2021 Telephone Cardiology Fernie Camarog LPN 03/27/2021 Telephone Cardiology Carlos Longo MD Custer, Brandon M, MD Canceled (Patient-Personal) 03/22/2021 Hospital Radiology Encounter Christy Soriano RN Appointment Request (reschedule valve ev aluation) 03/22/2021 Documentation Cardiology Shea Barnes Labs Only 03/21/2021 Documentation Cardiology Shea Barnes Paroxysmal atrial fibrillation (HCC) 03/21/2021 Orders Only Cardiology Nithya Madison ELECTRICAL MECHANICAL TECHNICIAN-FUNDRAISING MANAGER No Show 03/19/2021 Hospital Radiology Encounter Rogervargas Yonatantanmay 03/19/2021 Documentation Pharmacy Kian Walker 03/19/2021 Documentation Pharmacy Caitlin Esparza RN 03/19/2021 Orders Only Transplant Surgery Mag Rodriguez, 03/18/2021 Hospital Encounter Alfredo Chou MD Zhidovetskiy, Dmitriy, DO Pei, Lei, MD Capra, Jennifer M, DO Encephalopathy 03/14/2021 Hospital - Encounter 03/22/2021 03/14/2021 Hospital Radiology Encounter 03/14/2021 Hospital Radiology Encounter 03/14/2021 Travel Gino Pandya, ELECTRICAL MECHANICAL TECHNICIAN-FUNDRAISING MANAGER Scheduling 03/13/2021 Telephone Cardiology Sherin Mata BSN Chronic heart failure with preserved eje ction fraction (HCC) (Primary Dx); History of endocarditis; Non-ischemic cardiomyopathy (HCC); Other cirrhosis of liver (HCC) 03/12/2021 Orders Only Cardiology Helen Waggoner RN Anticoagulation (INR 2.3) 03/12/2021 Anticoagulation Cardiology Rufino Springer MA Labs Only (pt inr) 03/12/2021 Documentation Cardiology Helen Waggoner RN Records Request ([facility]) 03/12/2021 Documentation Cardiology Karsten Griffiths MD Baze, [...] Cardiology Telehealth Scout Nelson MD Johnson, Monica, RN Lind, Ashley, RT(R)(),LRT Chronic heart failure with preserved eje [...] Lab Results 02/09/2021 Documentation Cardiology Basilia Gaitan, ELECTRICAL MECHANICAL TECHNICIAN-FUNDRAISING MANAGER Jose Jovel MD Clegg, Rachel, RT(R)(),LRT Canceled (Patient-Rescheduled) 02/06/2021 Hospital Radiology Encounter Nithya Madison, ELECTRICAL MECHANICAL TECHNICIAN-FUNDRAISING MANAGER Heart Failure; Follow Up 02/06/2021 Office Visit [...] BSN Anticoagulation (INR 1.3) 01/29/2021 Anticoagulation Cardiology Jc Beckie Labs Only (INR) 01/29/2021 Documentation Cardiology [...] RN Anticoagulation (INR 1.2) 01/12/2021 Anticoagulation Cardiology from Last 3 Months Immunizations Name Administration Dates Next Due COVID-19 (PFIZER), mRNA 02/05/2021, 01/15/2021 vacc, 30 mcg/0.3 mL (PF) Flu Vaccine Quadrivalent 01/15/2021 =>3 Yo (Preservative Free) Flu Vaccine Quadrivalent 05/25/2019 Recombinant =>18 YO PF Pneumococcal Vaccine 03/05/2018 (23-Angelique Adult) Pneumococcal 11/21/2017 Vaccine(13-Angelique Peds/immunocompromised adult) Surgical History Surgery Date Site/Laterality Comments AORTIC VALVE REPLACEMENT 05/22/2009 - mechanical 06/21/2009 UPPER GASTROINTESTINAL 06/06/2020 N/A ESOPHAG OGASTRODUODENOSCOPY WITH BIOPSY - FLEXIBLE ENDOSCOPY performed by Leonidas Hernández MD at [facility] ENDO COLONOSCOPY 06/06/2020 N/A COLONOSCOPY LAWSON GNOSTIC WITH SPECIMEN COLLECTION BY BRUSHING/ WASHING - FLEXIBLE performed by Bao Hernández MD at [facility] ENDO UPPER GASTROINTESTINAL 10/21/2020 N/A ESOPHAG OGASTRODUODENOSCOPY WITH SPECIMEN ENDOSCOPY - 10/22/2020 COLLECTION BY BRUSH ING/ WASHING performed by Cosmo Gomez MD at [facility] ENDO SIGMOIDOSCOPY 10/21/2020 N/A SIGMOIDOSCOPY W ITH CONTROL OF BLEEDING - FLEXIBLE - 10/22/2020 performed by Cosmo Gomez MD at [facility] ENDO SIGMOIDOSCOPY 10/21/2020 SIGMOIDOSCOPY WITH DIRECTED SUBMUCOSAL INJECTION - - 10/22/2020 FLEXIBLE performed by Cosmo Pastor MD at [facility] ENDO UPPER GASTROINTESTINAL 01/03/2021 N/A ESOPHAG OGASTRODUODENOSCOPY WITH CONTROL OF ENDOSCOPY BLEEDING - FLEXIBLE perform ed by Bao Hernández MD at [facility] ENDO Medical History Medical History Date [...] Never Used Tobacco Cessation: Counseling Given: No Comments: secondhand Comments Alcohol Use Standard Drinks/Week Not Currently 0 (1 standard drink = 0.6 o z pure alcohol) Sex Assigned at Date Recorded Female 06/01/2020 1:44 PM CHIEF INFORMATION SECURITY OFFICER Date Recorded COVID-19 Exposure Response 04/11/2021 1:00 PM CHIEF INFORMATION SECURITY OFFICER In the last month, have you been in contact with No / Unsure someone who was confirmed or suspected to have Coronavirus / COVID-19? Last Filed Vital Signs Reading Time Taken Comments Vital Sign 101/78 04/11/2021 3:10 PM CHIEF INFORMATION SECURITY OFFICER Blood Pressure 84 03/22/2021 11:10 AM CHIEF INFORMATION SECURITY OFFICER Pulse 36.7 C (98.1 F) 04/06/2021 12:42 PM CHIEF INFORMATION SECURITY OFFICER Temperature 18 12/07/2020 3:19 PM CDT Respiratory Rate 96% 04/11/2021 3:10 PM CHIEF INFORMATION SECURITY OFFICER Oxygen Saturation - - Inhaled Oxygen Concentration 54.4 kg (120 lb) 04/11/2021 1:05 PM CHIEF INFORMATION SECURITY OFFICER Weight 157.5 cm (5' 2.01") 04/11/2021 1:05 PM CHIEF INFORMATION SECURITY OFFICER Height 21.94 04/11/2021 1:05 PM CHIEF INFORMATION SECURITY OFFICER Body Mass Index Plan of Treatment Care Team Description Date Type Specialty Carlos Longo MD [address] [facility] [id number] [place] [address] Giancarlo Meneses MD [address] [facility] [address] [place] [address] Clarissa Harmon, Crissy, RT(R)(),LRT 04/16/2021 Hospital Radiology Encounter Health Maintenance Due Date Last Done Comments MEDICARE ANNUAL WELLNESS 1960 VISIT DTAP/TDAP VACCINES (1 - 01/05/1980 Tdap) PHYSICAL (COMPREHENSIVE) 01/05/1980 EXAM CERVICAL CANCER SCREENING 1983 BREAST CANCER SCREENING 2002 SHINGLES RECOMBINANT 01/05/2012 VACCINE (1 of 2) COVID-19 VACCINE (3 - 07/06/2021 02/05/2021, Booster for Pfizer 01/15/2021 series) COLORECTAL CANCER 06/06/2030 06/06/2020, SCREENING 06/06/2020 HEPATITIS C SCREENING Completed 06/01/2020 HIV SCREENING Completed 06/02/2020 INFLUENZA VACCINE Completed 01/15/2021, 05/25/2019 Goals Goal Patient Associated Recent Progress Patient-Stat Aut hor Goal Type Problems ed? Improve [facility] On track (03/20/2021 Yes Sheldon, 1:41 PM CHIEF INFORMATION SECURITY OFFICER) CHRYSTAL Singh [facility] On track (03/20/2021 Yes Sheldon, 1:41 PM CHIEF INFORMATION SECURITY OFFICER) CHRYSTAL Singh Note: "To get better and stronger." Implants Device Identifier Shelf Expiration Date Model / Serial / L ot Implanted Type Area Manufactur er [id number] 07/21/2021 [id number] / N/A / [id number] Device Closure 70cm 6fr Angio-Seal TERUMO Vip .035in Vascular - Sn/A MEDICAL Implanted: Qty: 1 on 11/06/2020 at [facility] [id number] 06/08/2025 [id number] / . / [id number] Coil Embolization 14cm 3mm .018in COOK Nomi 14.9 Loop Soft - S. MEDICAL Implanted: Qty: 1 on 11/06/2020 at [facility] [id number] 06/08/2025 [id number] / . / [id number] Coil Embolization 14cm 3mm .018in COOK Nomi 14.9 Loop Soft - S. MEDICAL Implanted: Qty: 1 on 11/06/2020 at [facility] [id number] 06/08/2025 [id number] / . / [id number] Coil Embolization 14cm 3mm .018in COOK Nomi 14.9 Loop Soft - S. MEDICAL Implanted: Qty: 1 on 11/06/2020 at [facility] [id number] 06/08/2025 [id number] / . / [id number] Coil Embolization 14cm 3mm .018in COOK Nomi 14.9 Loop Soft - S. MEDICAL Implanted: Qty: 1 on 11/06/2020 at [facility] [id number] 09/02/2028 [id number] / . / [id number] Coil Embolization 10cm .02in 4mm PENUMBRA Penumbra Coil 400 Vivian - S. [employer] Implanted: Qty: 1 on 11/06/2020 at [facility] [id number] 06/08/2025 [id number] / . / [id number] Coil Embolization 14cm 3mm .018in COOK Nomi 14.9 Loop Soft - S. MEDICAL Implanted: Qty: 1 on 11/06/2020 at [facility] [id number] 06/08/2025 [id number] / . / [id number] Coil Embolization 14cm 3mm .018in COOK Nomi 14.9 Loop Soft - S. MEDICAL Implanted: Qty: 1 on 11/06/2020 at [facility] [id number] 06/08/2025 [id number] / . / [id number] Coil Embolization 14cm 3mm .018in COOK Nomi 14.9 Loop Soft - S. MEDICAL Implanted: Qty: 1 on 11/06/2020 at [facility] [id number] 06/08/2025 [id number] / . / [id number] Coil Embolization 14cm 3mm .018in COOK Nomi 14.9 Loop Soft - S. MEDICAL Implanted: Qty: 1 on 11/06/2020 at [facility] [id number] 07/03/2028 [id number] / . / [id number] Coil Vivian Pod J 30cm - S. PENUMBRA Implanted: Qty: 1 on 11/06/2020 at [facility] [id number] 02/24/2027 [id number] / . / [id number] Coil Vivian Pod J 45cm - S. PENUMBRA Implanted: Qty: 1 on 11/06/2020 at [facility] [id number] 06/08/2025 [id number] / . / [id number] Coil Embolization 14cm 3mm .018in COOK Nomi 14.9 Loop Soft - S. MEDICAL Implanted: Qty: 1 on 11/06/2020 at [facility] Procedures Comments Procedure Name Priority Date/Time Associated Diag nosis IR PARACENTESIS Routine 04/11/2021 Other cirrhosi s of liver DIAGNOSTIC + THERAPEUTIC 2:44 PM CHIEF INFORMATION SECURITY OFFICER (HCC) HC CELL COUNT Routine 04/11/2021 Other cirrhosis of liver W/DIFF-FLUIDS 2:17 PM CHIEF INFORMATION SECURITY OFFICER (HCC) HOME INR Routine 04/10/2021 IR PARACENTESIS Routine 04/06/2021 Chronic heart failure THERAPEUTIC 2:30 PM CHIEF INFORMATION SECURITY OFFICER with preserved ejec tion fraction (HCC) History of endocarditis Non-ischemic cardiomyopathy (HCC) Other cirrhosis of liver (HCC) HC CELL COUNT Routine 04/06/2021 Other cirrhosis of liver W/DIFF-FLUIDS 2:05 PM CHIEF INFORMATION SECURITY OFFICER (HCC) HC PT(INR) Routine 04/06/2021 Chronic heart f ailure 1:03 PM CHIEF INFORMATION SECURITY OFFICER with preserved ejection fraction (HCC) HC COMPREHENSIVE Routine 04/06/2021 Chronic heart failure METABOLIC PANEL 1:03 PM CHIEF INFORMATION SECURITY OFFICER with preserved ejec tion fraction (HCC) Other cirrhosis of liver (HCC) Encephalopathy HC CBC,AUTOMATED Routine 04/06/2021 Pre-procedure lab exam 1:03 PM CHIEF INFORMATION SECURITY OFFICER Severe tricuspid regurgitation IR PARACENTESIS Routine 04/03/2021 Chronic heart failure THERAPEUTIC 2:14 PM CHIEF INFORMATION SECURITY OFFICER with preserved ejec tion fraction (HCC) History of endocarditis Non-ischemic cardiomyopathy (HCC) Other cirrhosis of liver (HCC) HC CELL COUNT Routine 04/03/2021 Other cirrhosis of liver W/DIFF-FLUIDS 2:02 PM CHIEF INFORMATION SECURITY OFFICER (HCC) HOME INR Routine 04/02/2021 IR PARACENTESIS Routine 03/30/2021 Other cirrhosi s of liver DIAGNOSTIC + THERAPEUTIC 3:16 PM CHIEF INFORMATION SECURITY OFFICER (HCC) HC CELL COUNT Routine 03/30/2021 Other cirrhosis of liver W/DIFF-FLUIDS 2:54 PM CHIEF INFORMATION SECURITY OFFICER (HCC) HOME INR Routine 03/30/2021 BASIC METABOLIC PANEL Routine 03/29/2021 Pre-proc edure lab exam 4:10 PM CHIEF INFORMATION SECURITY OFFICER Severe tricuspid regurgitation PROTIME INR (PT) Routine 03/26/2021 Paroxysmal at rial fibrillation (HCC) HC CBC W/ AUTOMATED DIFF Routine 03/22/2021 11:46 AM CHIEF INFORMATION SECURITY OFFICER HC COMPREHENSIVE Routine 03/22/2021 METABOLIC PANEL 11:46 AM CHIEF INFORMATION SECURITY OFFICER HC PT(INR) Routine 03/22/2021 11:46 AM CHIEF INFORMATION SECURITY OFFICER HC TOTAL PROTEIN-FLUID Routine 03/22/2021 9:24 AM CHIEF INFORMATION SECURITY OFFICER HC ALBUMIN, FLUID Routine 03/22/2021 9:24 AM CHIEF INFORMATION SECURITY OFFICER HC CELL COUNT Routine 03/22/2021 W/DIFF-FLUIDS 9:24 AM CHIEF INFORMATION SECURITY OFFICER GRAM STAIN Routine 03/22/2021 9:24 AM CHIEF INFORMATION SECURITY OFFICER CULTURE-ANAEROBIC Routine 03/22/2021 9:24 AM CHIEF INFORMATION SECURITY OFFICER CULTURE-WOUND/TISSUE/FLUI Routine 03/22/2021 D(AEROBIC 9:24 AM CHIEF INFORMATION SECURITY OFFICER ONLY)W/SENSITIVITY IR PARACENTESIS Routine 03/22/2021 DIAGNOSTIC + THERAPEUTIC 9:21 AM CHIEF INFORMATION SECURITY OFFICER ECG-SCAN 03/22/2021 12:00 AM CHIEF INFORMATION SECURITY OFFICER COVID-19 (SARS-COV-2) PCR Routine 03/21/2021 4:34 PM CHIEF INFORMATION SECURITY OFFICER HC COMPREHENSIVE Routine 03/21/2021 METABOLIC PANEL 5:49 AM CHIEF INFORMATION SECURITY OFFICER HC CBC W/ AUTOMATED DIFF Routine 03/21/2021 5:49 AM CHIEF INFORMATION SECURITY OFFICER HC PT(INR) Routine 03/21/2021 5:49 AM CHIEF INFORMATION SECURITY OFFICER HC COMPREHENSIVE Routine 03/20/2021 METABOLIC PANEL 10:17 AM CHIEF INFORMATION SECURITY OFFICER HC CBC W/ AUTOMATED DIFF Routine 03/20/2021 10:17 AM CHIEF INFORMATION SECURITY OFFICER HC PT(INR) Routine 03/20/2021 10:17 AM CHIEF INFORMATION SECURITY OFFICER US RENAL BLADDER COMPLETE Routine 03/19/2021 1:54 PM CHIEF INFORMATION SECURITY OFFICER HC UREA NITROGEN-URINE Routine 03/19/2021 12:00 PM CHIEF INFORMATION SECURITY OFFICER HC CREATININE-URINE Routine 03/19/2021 12:00 PM CHIEF INFORMATION SECURITY OFFICER HC SODIUM-URINE Routine 03/19/2021 12:00 PM CHIEF INFORMATION SECURITY OFFICER UA REFLEX LABEL Routine 03/19/2021 11:59 AM CHIEF INFORMATION SECURITY OFFICER URINALYSIS MICROSCOPIC Routine 03/19/2021 REFLEX TO CULTURE 11:59 AM CHIEF INFORMATION SECURITY OFFICER HC URINALYSIS UAR Routine 03/19/2021 11:59 AM CHIEF INFORMATION SECURITY OFFICER CULTURE-URINE 03/19/2021 W/SENSITIVITY 11:59 AM CHIEF INFORMATION SECURITY OFFICER HC COMPREHENSIVE Routine 03/19/2021 METABOLIC PANEL 6:38 AM CHIEF INFORMATION SECURITY OFFICER HC CBC W/ AUTOMATED DIFF Routine 03/19/2021 6:38 AM CHIEF INFORMATION SECURITY OFFICER HC PT(INR) Routine 03/19/2021 6:38 AM CHIEF INFORMATION SECURITY OFFICER HC PT(INR) Routine 03/18/2021 12:24 PM CHIEF INFORMATION SECURITY OFFICER HC COMPREHENSIVE Specimen 03/18/2021 METABOLIC PANEL in Lab 12:24 PM CHIEF INFORMATION SECURITY OFFICER CONSULT VASCULAR ACCESS Routine 03/18/2021 TEAM 11:57 AM CHIEF INFORMATION SECURITY OFFICER HC CBC W/ AUTOMATED DIFF Routine 03/18/2021 7:25 AM CHIEF INFORMATION SECURITY OFFICER HC PT(INR) Routine 03/17/2021 4:16 AM CHIEF INFORMATION SECURITY OFFICER HC COMPREHENSIVE Routine 03/17/2021 METABOLIC PANEL 4:16 AM CHIEF INFORMATION SECURITY OFFICER HC CBC W/ AUTOMATED DIFF Routine 03/17/2021 4:16 AM CHIEF INFORMATION SECURITY OFFICER POC GLUCOSE 03/16/2021 4:52 PM CHIEF INFORMATION SECURITY OFFICER EXTRA URINE CHAVARRIA TOP 03/16/2021 12:48 PM CHIEF INFORMATION SECURITY OFFICER URINE TIGER TOP TUBE 03/16/2021 12:48 PM CHIEF INFORMATION SECURITY OFFICER HC UREA NITROGEN-URINE STAT 03/16/2021 12:48 PM CHIEF INFORMATION SECURITY OFFICER HC CREATININE-URINE Routine 03/16/2021 12:48 PM CHIEF INFORMATION SECURITY OFFICER HC SODIUM-URINE Routine 03/16/2021 12:48 PM CHIEF INFORMATION SECURITY OFFICER HC PT(INR) Routine 03/16/2021 7:55 AM CHIEF INFORMATION SECURITY OFFICER HC COMPREHENSIVE Routine 03/16/2021 METABOLIC PANEL 7:55 AM CHIEF INFORMATION SECURITY OFFICER HC CBC W/ AUTOMATED DIFF Routine 03/16/2021 7:55 AM CHIEF INFORMATION SECURITY OFFICER IR PARACENTESIS Routine 03/15/2021 DIAGNOSTIC + THERAPEUTIC 12:17 PM CHIEF INFORMATION SECURITY OFFICER HC TOTAL PROTEIN-FLUID Specimen 03/15/2021 in Lab 12:08 PM CHIEF INFORMATION SECURITY OFFICER HC ALBUMIN, FLUID Specimen 03/15/2021 in Lab 12:08 PM CHIEF INFORMATION SECURITY OFFICER HC CELL COUNT Routine 03/15/2021 W/DIFF-FLUIDS 12:08 PM CHIEF INFORMATION SECURITY OFFICER GRAM STAIN 03/15/2021 12:08 PM CHIEF INFORMATION SECURITY OFFICER CULTURE-WOUND/TISSUE/FLUI Routine 03/15/2021 D(AEROBIC 12:08 PM CHIEF INFORMATION SECURITY OFFICER ONLY)W/SENSITIVITY CULTURE-BLOOD Routine 03/15/2021 W/SENSITIVITY 10:00 AM CHIEF INFORMATION SECURITY OFFICER CULTURE-BLOOD Routine 03/15/2021 W/SENSITIVITY 9:50 AM CHIEF INFORMATION SECURITY OFFICER HC PT(INR) Routine 03/15/2021 6:58 AM CHIEF INFORMATION SECURITY OFFICER HC COMPREHENSIVE Routine 03/15/2021 METABOLIC PANEL 6:58 AM CHIEF INFORMATION SECURITY OFFICER HC CBC W/ AUTOMATED DIFF Routine 03/15/2021 6:58 AM CHIEF INFORMATION SECURITY OFFICER URINALYSIS MICROSCOPIC Routine 03/14/2021 REFLEX TO CULTURE 10:06 PM CHIEF INFORMATION SECURITY OFFICER HC URINALYSIS UAR Routine 03/14/2021 10:06 PM CHIEF INFORMATION SECURITY OFFICER CULTURE-URINE 03/14/2021 W/SENSITIVITY 10:06 PM CHIEF INFORMATION SECURITY OFFICER HC *FREE T4 (REFLEX) Routine 03/14/2021 9:10 PM CHIEF INFORMATION SECURITY OFFICER HC TSH SCREEN Routine 03/14/2021 9:10 PM CHIEF INFORMATION SECURITY OFFICER HC COMPREHENSIVE Routine 03/14/2021 METABOLIC PANEL 9:10 PM CHIEF INFORMATION SECURITY OFFICER HC CBC W/ AUTOMATED DIFF Routine 03/14/2021 9:10 PM CHIEF INFORMATION SECURITY OFFICER HC AMMONIA Routine 03/14/2021 9:10 PM CHIEF INFORMATION SECURITY OFFICER COVID-19 (SARS-COV-2) PCR Routine 03/14/2021 9:10 PM CHIEF INFORMATION SECURITY OFFICER CHEST SINGLE VIEW Routine 03/14/2021 9:04 PM CHIEF INFORMATION SECURITY OFFICER CT ABD/PEL EXTERNAL Routine 03/14/2021 IMAGING 12:05 AM CHIEF INFORMATION SECURITY OFFICER CT HEAD EXTERNAL IMAGING Routine 03/14/2021 12:00 AM CHIEF INFORMATION SECURITY OFFICER TELEMETRY STRIPS-SCAN 03/14/2021 12:00 AM CHIEF INFORMATION SECURITY OFFICER ECG-SCAN 03/14/2021 12:00 AM CHIEF INFORMATION SECURITY OFFICER PROTIME INR (PT) Routine 03/12/2021 Paroxysmal at rial fibrillation (HCC) IR PARACENTESIS Routine 03/08/2021 Chronic heart failure THERAPEUTIC 8:32 AM CHIEF INFORMATION SECURITY OFFICER with preserved ejec tion fraction (HCC) RVF (right ventricular failure) (HCC) Other cirrhosis of liver (HCC) PROTIME INR (PT) Routine 03/07/2021 Chronic heart failure with preserved ejection fraction (HCC) IR PARACENTESIS Routine 03/05/2021 Chronic heart failure THERAPEUTIC 9:32 AM CHIEF INFORMATION SECURITY OFFICER with preserved ejec tion fraction (HCC) RVF (right ventricular failure) (HCC) Other cirrhosis of liver (HCC) HC PT(INR) Routine 03/05/2021 Chronic heart f ailure 8:28 AM CHIEF INFORMATION SECURITY OFFICER with preserved ejection fraction (HCC) IR PARACENTESIS Routine 03/02/2021 Chronic heart failure THERAPEUTIC 4:19 PM CHIEF INFORMATION SECURITY OFFICER with preserved ejec tion fraction (HCC) RVF (right ventricular failure) (HCC) Other cirrhosis of liver (HCC) HC CBC W/ AUTOMATED DIFF Routine 03/02/2021 Chron ic heart failure 3:24 PM CHIEF INFORMATION SECURITY OFFICER with preserved ejection fraction (HCC) Other cirrhosis of liver (HCC) HC COMPREHENSIVE Routine 03/02/2021 Chronic heart failure METABOLIC PANEL 3:24 PM CHIEF INFORMATION SECURITY OFFICER with preserved ejec tion fraction (HCC) Other cirrhosis of liver (HCC) HOME INR Routine 02/27/2021 PROTIME INR (PT) Routine 02/27/2021 Paroxysmal at rial fibrillation (HCC) PROTIME INR (PT) Routine 02/27/2021 Paroxysmal at rial fibrillation (HCC) IR PARACENTESIS Routine 02/19/2021 Chronic heart failure THERAPEUTIC 9:50 AM CHIEF INFORMATION SECURITY OFFICER with preserved ejec tion fraction (HCC) RVF (right ventricular failure) (HCC) Other cirrhosis of liver (HCC) HC PT(INR) Routine 02/19/2021 Paroxysmal atri al 8:19 AM CHIEF INFORMATION SECURITY OFFICER fibrillation (HCC) IR PARACENTESIS Routine 02/12/2021 Chronic heart failure THERAPEUTIC 4:21 PM CHIEF INFORMATION SECURITY OFFICER with preserved ejec tion fraction (HCC) RVF (right ventricular failure) (HCC) Other cirrhosis of liver (HCC) PROTIME INR (PT) Routine 02/12/2021 Paroxysmal at rial fibrillation (HCC) HOME INR Routine 02/09/2021 5:32 PM CHIEF INFORMATION SECURITY OFFICER HOME INR Routine 02/09/2021 PROTIME INR (PT) Routine 02/05/2021 Chronic heart failure with preserved ejection fraction (HCC) IR PARACENTESIS Routine 02/02/2021 Chronic heart failure THERAPEUTIC 4:19 PM CHIEF INFORMATION SECURITY OFFICER with preserved ejec tion fraction (HCC) RVF [...] rial fibrillation (HCC) HOME INR Routine 01/12/2021 from Last 3 Months Results * IR PARACENTESIS DIAGNOSTIC + THERAPEUTIC (04/11/2021 2:44 PM CHIEF INFORMATION SECURITY OFFICER) Only the most recent of 4 results within the time period is included. Modality Anatomical Region Laterality Ultrasound Specimen Impressions [facility] RESULTS - 04/11/2021 3:12 PM CHIEF INFORMATION SECURITY OFFICER Successful ultrasound guided paracentesis. 3700 mL of [...] [facility] RESULTS - 04/11/2021 3:12 PM CHIEF INFORMATION SECURITY OFFICER Ultrasound-guided paracentesis CLINICAL INDICATION: Ascites. Other cirrhosis of liver. ADVERTISING TRAFFIC MANAGER: Fred Johnson M.D. and Jose Jovel M.D. [...] CLINICAL INDICATION: Ascites. Other cirrhosis of liver. ADVERTISING TRAFFIC MANAGER: Fred Johnson M.D. and Jose Jovel M.D. [...] * CELL COUNT W/DIFF-FLUIDS (04/11/2021 2:17 PM CHIEF INFORMATION SECURITY OFFICER) Only the most recent of 6 results within the time period is included. White Blood 79 /UL [facility] MAIN LAB [...] LAB Interpretation, Fluid Pathologist INTERPRETED BY CHIKI SPARKS MAIN L AB Signature By the PATH SIGNATURE ABOVE , I attest that I have personally formulated the final interpretation expressed in this report and that the above diagnosis is based upon my examination of the slides and/or other material indicated in this report. Specimen Fluid - Body fluid sample (specimen) Performing Organization Address City/State/ZIP Code P shane Number [facility] [address] [place] [address] * HOME INR (04/10/2021) Only the most recent of 7 results within the time period is included. INR Home 2.7 OTHER OUTSIDE LAB Specimen Narrative OTHER OUTSIDE LAB - 04/10/2021 Called in by medical lodge [phone]. Performing Organization Address City/State/ZIP Code P shane Number OTHER OUTSIDE LAB * IR PARACENTESIS THERAPEUTIC (04/06/2021 2:30 PM CHIEF INFORMATION SECURITY OFFICER) Only the most recent of 9 results within the time period is included. Modality Anatomical Region Laterality Ultrasound Specimen Impressions [facility] RESULTS - 04/06/2021 2:52 PM CHIEF INFORMATION SECURITY OFFICER IMPRESSION: Successful ultrasound guided paracentesis. 3200 mL of fluid was removed. Approved by HOSSEIN Callahan on 04/06/2021 2:49 PM By my electronic signature, I attest that I have personally reviewed the images for this examination and formulated the interpretations and opinions expressed in this report Finalized by Tae Tatum M.D. on 04/06/2021 2:52 PM. Dictated by HOSSEIN Callahan on 04/06/2021 2:48 PM. Narrative [facility] RESULTS - 04/06/2021 2:52 PM CHIEF INFORMATION SECURITY OFFICER Ultrasound-guided therapeutic paracentesis CLINICAL INDICATION: Ascites MEDICATIONS: 10 mL subcutaneous Lidocaine 2% ADVERTISING TRAFFIC MANAGER: HOSSEIN Callahan ATTENDING: Tae Tatum M.D. TECHNIQUE: Larry Toribio M.D, the attending [...] catheter was connected to Vacutainer bottles and 3200 mL fluid was removed. There were no immediate complications of the procedure. No significant blood loss. Patient tolerated procedure well. FINDINGS: Moderate volume free peritoneal fluid demonstrated on ultrasound. Procedure Note Larry Tatum MD - 04/06/2021 Ultrasound-guided therapeutic paracentesis CLINICAL INDICATION: Ascites MEDICATIONS: 10 mL subcutaneous Lidocaine 2% ADVERTISING TRAFFIC MANAGER: HOSSEIN Callahan ATTENDING: Tae Tatum M.D. TECHNIQUE: I, Larry Tatum M.D, the [...] catheter was connected to Vacutainer bottles and 3200 mL fluid was removed. There were no immediate complications of the procedure. No significant blood loss. Patient tolerated procedure well. FINDINGS: Moderate volume free peritoneal fluid demonstrated on ultrasound. IMPRESSION IMPRESSION: Successful ultrasound guided paracentesis. 3200 mL of fluid was removed. Approved by HOSSEIN Callahan on 04/06/2021 2:49 PM By my electronic signature, I attest that I have personally reviewed the images for this examination and formulated the interpretations and opinions expressed in this report Finalized by Tae Tatum M.D. on 04/06/2021 2:52 PM. Dictated by HOSSEIN Callahan on 04/06/2021 2:48 PM. Performing Organization Address City/State/ZIP Code P shane Number [facility] RESULTS * (ABNORMAL) PROTIME INR (PT) (04/06/2021 1:03 PM CHIEF INFORMATION SECURITY OFFICER) Only the most recent of 23 results within the time period is included. INR 3.1 (H) 0.8 - 1.2 MAIN LAB Specimen Blood Performing Organization Address City/State/ZIP Code P shane Number MAIN LAB [address] [place] [address] * (ABNORMAL) CBC (04/06/2021 1:03 PM CHIEF INFORMATION SECURITY OFFICER) White Blood 6.4 4.5 - 11.0 K/UL [facility] Cells RBC 3.75 (L) 4.0 - 5.0 M/UL [facility] Hemoglobin 11.6 (L) 12.0 - 15.0 GM/DL [facility] MAIN [facility] Hematocrit 34.1 (L) 36 - 45 % [facility] MAIN [facility] MCV 91.0 80 - 100 FL [facility]IN [facility] MCH 31.0 26 - 34 PG [facility]IN [facility] MCHC 34.1 32.0 - 36.0 G/DL [facility]IN [facility] RDW 18.2 (H) 11 - 15 % [facility] Platelet Count 200 150 - 400 K/UL [facility] MPV 7.2 7 - 11 FL [facility] Specimen Blood (substance) Performing Organization Address City/State/ZIP Code P shane Number [facility] [address] [place] [address] * (ABNORMAL) COMPREHENSIVE METABOLIC PANEL (04/06/2021 1:03 PM CHIEF INFORMATION SECURITY OFFICER) Only the most recent of 11 results within the time period is included. Pathologist [facility] Sodium 134 (L) 137 - 147 MMOL/L [facility] Potassium 3.1 (L) 3.5 - 5.1 MMOL/L [facility] Chloride 100 98 - 110 MMOL/L [facility] Glucose 104 (H) 70 - 100 MG/DL [facility] Blood Urea 29 (H) 7 - 25 MG/DL [facility]IN [facility] Nitrogen Creatinine 1.30 (H) 0.4 - 1.00 MG/DL [facility]IN [facility] Calcium 8.1 (L) 8.5 - 10.6 MG/DL [facility] Total Protein 5.5 (L) 6.0 - 8.0 G/DL [facility] Total Bilirubin 0.6 0.3 - 1.2 MG/DL [facility] Albumin 3.2 (L) 3.5 - 5.0 G/DL [facility] Alk Phosphatase 211 (H) 25 - 110 U/L [facility] AST (SGOT) 32 7 - 40 U/L [facility] CO2 22 21 - 30 MMOL/L [facility] ALT (SGPT) 14 7 - 56 U/L [facility] Anion Gap 12 3 - 12 [facility] MAIN [facility] eGFR 47 (L)Comment: eGFR calculated >60 mL/min [facility] MAIN [facility] using the CKD-EPIcr_R equation Specimen Blood (substance) Performing Organization Address City/State/ZIP Code P shane Number [facility]IN [facility] [address] [place] [id number] * (ABNORMAL) BASIC METABOLIC PANEL (03/29/2021 4:10 PM CHIEF INFORMATION SECURITY OFFICER) Only the most recent of 2 results within the time period is included. Sodium 135 [facility] Potassium 3.4 (A) 3.6 - 5.0 [facility] Chloride 104 [facility] CO2 22 [facility] Blood Urea 24 (A) 7 - 18 [facility] Nitrogen Creatinine 1.12 [facility] Glucose 94 [facility] Calcium 8.3 (A) 8.5 - 10.1 [facility] MAIN LAB eGFR Non [facility] MAIN LAB eGFR 50 [facility] MAIN [facility] Kazakh Anion Gap 9 [facility] MAIN [facility] Specimen Blood - Blood (substance) Narrative Performing Organization Address City/[facility] Code P shane Number [facility] MAIN [facility] [address] [place] [address] * (ABNORMAL) CBC AND DIFF (03/22/2021 11:46 AM CHIEF INFORMATION SECURITY OFFICER) Only the most recent of 10 results within the time period is included. White Blood 5.0 4.5 - 11.0 K/UL [facility] MAIN [facility] Cells RBC 4.02 4.0 - 5.0 M/UL [facility] Hemoglobin 12.1 12.0 - 15.0 GM/DL [facility]IN [facility] Hematocrit 37.6 36 - 45 % [facility]IN [facility] MCV 93.5 80 - 100 FL [facility]IN [facility] MCH 30.2 26 - 34 PG [facility]IN [facility] MCHC 32.3 32.0 - 36.0 G/DL [facility]IN [facility] RDW 17.2 (H) 11 - 15 % [facility]IN [facility] Platelet Count 239 150 - 400 K/UL [facility] MAIN LAB [...] - 2 % [facility] MAIN [facility] Absolute 4.06 1.8 - 7.0 K/UL [facility] MAIN [facility] Neutrophil Count Absolute Lymph 0.51 (L) 1.0 - 4.8 K/UL [facility] Count Absolute 0.37 0 - 0.80 K/UL [facility]IN [facility] Monocyte Count Absolute 0.08 0 - 0.45 K/UL [facility]IN [facility] Eosinophil Count Absolute 0.03 0 - 0.20 K/UL [facility]IN [facility] Basophil Count Specimen Blood (substance) Performing Organization Address [facility] P shane Number [facility] MAIN [facility] [address] [place] [address] * PERITONEAL FLUID TOTAL PROTEIN (03/22/2021 9:24 AM CHIEF INFORMATION SECURITY OFFICER) Only the most recent of 2 results within the time period is included. Peritoneal 3.7 g/dL [facility]IN [facility] Fluid Total Comment: Protein Ascites fluid total prote in >1g/dL favors secondary bacterial peritonitis over spontaneous bacterial peritonitis Specimen Peritoneal fluid (substance) Performing Organization Address [facility] P shane Number [facility] MAIN [facility] [address] [place] [address] * PERITONEAL FLUID ALBUMIN (03/22/2021 9:24 AM CHIEF INFORMATION SECURITY OFFICER) Only the most recent of 2 results within the time period is included. Peritoneal 2.2 g/dL [facility]IN [facility] Fluid Albumin Comment: Serum to ascites albumin gradient (SAAG) >1.1 g/d is seen in portal hypertension. SAAG <1.1 g/dL is seen in cancer and infections Specimen Peritoneal fluid (substance) Performing Organization Address [facility] P shane Number [facility] MAIN [facility] [address] [place] [address] * GRAM STAIN (03/22/2021 9:24 AM CHIEF INFORMATION SECURITY OFFICER) Only the most recent of 2 results within the time period is included. Battery Name GRAM STAIN MAIN LAB Report Status FINAL 03/22/2021 [facility] MAIN LAB Specimen FLUID PERITONEAL [facility]IN [facility] Description Special No special requests [facility] MAIN LAB Requests Gram Stain FEW [facility] MAIN LAB NEUTROPHILS Gram Stain MANY [facility] MAIN [facility] RBC'S Gram Stain NO ORGANISMS SEEN [facility] MAIN LAB Specimen Fluid Performing Organization Address [facility] Code P shane Number [facility] MAIN [facility] [address] [place] [address] * CULTURE-WOUND/TISSUE/FLUID(AEROBIC ONLY)W/SENSITIVITY (03/22/2021 9:24 AM CHIEF INFORMATION SECURITY OFFICER) Only the most recent of 2 results within the time period is included. Battery Name ROUTINE CULTURE MAIN LAB Report Status FINAL 03/27/2021 [facility] MAIN LAB Specimen FLUID PERITONEAL MAIN LAB Description Special No special requests [facility] MAIN LAB Requests Direct Gram FEW [facility] MAIN LAB Stain NEUTROPHILS Direct Gram MANY [facility]IN [facility] Stain RBC'S Direct Gram NO ORGANISMS SEEN [facility] MAIN LAB Stain Culture NO GROWTH 5 DAYS [facility] MAIN LAB Specimen Fluid Performing Organization Address City/State/ZIP Code P shane Number [facility] MAIN [facility] [address] [place] [address] * CULTURE-ANAEROBIC (03/22/2021 9:24 AM CHIEF INFORMATION SECURITY OFFICER) Battery Name ANAEROBE CULTURE [facility] MAIN [facility] Report Status FINAL 03/27/2021 [facility] MAIN LAB Specimen FLUID PERITONEAL MAIN LAB Description Special No special requests [facility] MAIN LAB Requests Culture NO ANAEROBES ISOLATED [facility] MAIN [facility] Specimen Fluid Performing Organization Address City/State/ZIP Code P shane Number [facility] MAIN [facility] [address] [place] [address] * ECG-SCAN (03/22/2021 12:00 AM CHIEF INFORMATION SECURITY OFFICER) Narrative 03/22/2021 12:00 AM CHIEF INFORMATION SECURITY OFFICER Ordered by an unspecified provider. * COVID-19 (SARS-COV-2) PCR (03/21/2021 4:34 PM CHIEF INFORMATION SECURITY OFFICER) Only the most recent of 2 results within the time period is included. Pathologist [facility] COVID-19 FLOCKED SWAB MAIN LAB (SARS-CoV-2) NASOPHARYNGEAL PCR Source COVID-19 NOT DETECTED DN-NOT DETECTED [facility] (SARS-CoV-2) Comment: PCR This assay [...] performance characteristics have been verified by the [facility]. Fact sheet for providers: https://www.fda.gov/media/4950 85/download Fact sheet for patients: https://www.fda.gov/media/1361 87/download Specimen Flocked Swab - Nasopharyngeal structure (body structure) Performing Organization Address City/State/ZIP Code P shane Number [facility] MAIN [facility] [address] [place] [address] * US RENAL BLADDER COMPLETE (03/19/2021 1:54 PM CHIEF INFORMATION SECURITY OFFICER) Modality Anatomical Region Laterality Ultrasound Pelvis Specimen Impressions [facility] RESULTS - 03/19/2021 2:02 PM CHIEF INFORMATION SECURITY OFFICER 1. Normal size kidneys without evidenc e of hydronephrosis. 2. Small volume abdominopelvic ascites . By my electronic signature, I attest that I have personally reviewed the images for this examination and formulated the interpretations and opinions expressed in this report Finalized by Sekou Hood MD on 03/19/2021 2:02 PM. Dictated by Vicky No M.D. on 03/19/2021 1:42 PM. Narrative [facility] RESULTS - 03/19/2021 2:02 PM CHIEF INFORMATION SECURITY OFFICER RENAL ULTRASOUND CLINICAL INDICATION: Acute kidney injury. TECHNIQUE: Multiple grayscale ultrasound images were obtained through the kidneys and urinary bladder. COMPARISON: CT abdomen pelvis 12/30/2020 and abdominal ultrasound 12/01/2020. FINDINGS: Right kidney: Measures 9.0 x 4.0 cm. No hydronephrosis or shadowing calculi. Left kidney: Measures 10.1 x 6.3 cm. No hydronephrosis or shadowing calculi. Urinary bladder: Minimally distended with indwelling Trevino catheter. Other: Partially visualized chronic liver with small volume abdominopelvic ascites. Procedure Note Sekou Hood MD - 03/19/2021 RENAL ULTRASOUND CLINICAL INDICATION: Acute kidney injury. TECHNIQUE: Multiple grayscale ultrasound images were obtained through the kidneys and urinary bladder. COMPARISON: CT abdomen pelvis 12/30/2020 and abdominal ultrasound 12/01/2020. FINDINGS: Right kidney: Measures 9.0 x 4.0 cm. No hydronephrosis or shadowing calculi. Left kidney: Measures 10.1 x 6.3 cm. No hydronephrosis or shadowing calculi. Urinary bladder: Minimally distended with indwelling Trevino catheter. Other: Partially visualized chronic liver with small volume abdominopelvic ascites. IMPRESSION 1. Normal size kidneys without evidence of hydronephrosis. 2. Small volume abdominopelvic ascites. By my electronic signature, I attest that I have personally reviewed the images for this examination and formulated the interpretations and opinions expressed in this report Finalized by Sekou Hood MD on 03/19/2021 2:02 PM. Dictated by Vicky No M.D. on 03/19/2021 1:42 PM. Performing Organization Address [facility] P shane Number [facility] RAD RESULTS * UREA NITROGEN-URINE RANDOM (03/19/2021 12:00 PM CHIEF INFORMATION SECURITY OFFICER) Only the most recent of 2 results within the time period is included. Urea Nitrogen 614 MG/DL MAIN LAB Specimen Urine - Urine specimen (specimen) Performing Organization Address [facility] P shane Number MAIN LAB [address] [place] [address] * SODIUM-URINE RANDOM (03/19/2021 12:00 PM CHIEF INFORMATION SECURITY OFFICER) Only the most recent of 2 results within the time period is included. Sodium, Random <10 MMOL/L MAIN LAB Specimen Urine - Urine specimen (specimen) Performing Organization [facility] P shane Number MAIN LAB [address] [place] [address] * CREATININE-URINE RANDOM (03/19/2021 12:00 PM CHIEF INFORMATION SECURITY OFFICER) Only the most recent of 2 results within the time period is included. Creatinine, 81 MG/DL MAIN LAB Random Specimen Urine - Urine specimen (specimen) Performing Organization [facility] P shane Number [facility] MAIN LAB [address] [place] [address] * UA REFLEX LABEL (03/19/2021 11:59 AM CHIEF INFORMATION SECURITY OFFICER) UA Reflex Criteria [facility] Culture are WBC>10, Positive Nitrit e, and/or >=+1 leukocytes. If quantity is not sufficient, an addendum will follow. Specimen Urine specimen (specimen) Performing Organization Address [facility] P shane Number MAIN LAB [address] [place] [address] * URINALYSIS MICROSCOPIC REFLEX TO CULTURE (03/19/2021 11:59 AM CHIEF INFORMATION SECURITY OFFICER) Only the most recent of 2 results within the time period is included. WBCs,UA 10-20 0 - 2 /HPF [facility] MAIN LAB RBCs,UA PACKED 0 - 3 /HPF [facility] MAIN LAB Comment,UA Criteria for reflex to culture [facility] are WBC>10, Positive Nitrite, and/or >=+1 leukocytes. If quantity is not sufficient, an addendum will follow. MucousUA TRACE [facility] MAIN LAB WBC Clumps PRESENT [facility] MAIN LAB Squamous 0-2 0 - 5 [facility] MAIN LAB Epithelial Cells Budding Yeast PACKED [facility] MAIN LAB Hyaline Cast 2-5 [facility] MAIN LAB Transitional 0-2 [facility] MAIN LAB Epithelial Specimen Urine specimen (specimen) Performing Organization Address City/State/ZIP Code P shane Number [facility] MAIN [facility] [address] [place] [address] * (ABNORMAL) URINALYSIS DIPSTICK REFLEX TO CULTURE (03/19/2021 11:59 AM CHIEF INFORMATION SECURITY OFFICER) Only the most recent of 2 results within the time period is included. Color,UA YELLOW [facility] MAIN LAB Turbidity,UA 1+ (A) CLEAR-CLEAR [facility] MAIN LAB Specific 1.017Comment: NOTE NEW 1.005 - 1.030 [facility] MAIN LAB Erin-Urine REFERENCE RANGES pH,UA 5.0 5.0 - 8.0 [facility] MAIN LAB Protein,UA 1+ (A) NEG-NEG [facility] MAIN LAB Glucose,UA 1+ (A) NEG-NEG [facility] MAIN LAB Ketones,UA NEG NEG-NEG [facility] MAIN LAB Bilirubin,UA NEG NEG-NEG [facility] MAIN LAB Blood,UA 2+ (A) NEG-NEG [facility] MAIN LAB Urobilinogen,UA NORMAL NORM-NORMAL [facility] MAIN LAB Nitrite,UA NEG NEG-NEG [facility]IN [facility] Leukocytes,UA TRACE (A) NEG-NEG [facility] MAIN LAB Urine Ascorbic NEG NEG-NEG [facility] MAIN LAB Acid, UA Specimen Urine specimen (specimen) Performing Organization Address City/[facility]/ZIP Code P shane Number [facility] MAIN LAB [address] [place] [address] * CULTURE-URINE W/SENSITIVITY (03/19/2021 11:59 AM CHIEF INFORMATION SECURITY OFFICER) Only the most recent of 2 results within the time period is included. Battery Name URINE CULTURE [facility] MAIN LAB Report Status FINAL 03/20/2021 [facility] MAIN LAB Specimen URINE MIDSTREAM [facility] MAIN LAB Description Special No special requests [facility] MAIN LAB Requests Culture NO GROWTH [facility] MAIN LAB Specimen Urine Performing Organization Address City/[facility]/ZIP Code P shane Number [facility] MAIN LAB [address] [place] [address] * (ABNORMAL) POC GLUCOSE (03/16/2021 4:52 PM CHIEF INFORMATION SECURITY OFFICER) Glucose, POC 255 (H) 70 - 100 MG/DL [facility] MAIN LAB Specimen Performing Organization Address City/[facility] Code P shane Number [facility] MAIN LAB [address] [place] [address] * EXTRA URINE CHAVARRIA TOP (03/16/2021 12:48 PM CHIEF INFORMATION SECURITY OFFICER) Specimen Performing Organization Address City/[facility] Code P shane Number MAIN LAB [address] [place] [address] * URINE TIGER TOP TUBE (03/16/2021 12:48 PM CHIEF INFORMATION SECURITY OFFICER) Specimen Performing Organization Address [facility] P shane Number MAIN LAB [address] [place] [address] * CULTURE-BLOOD W/SENSITIVITY (03/15/2021 10:00 AM CHIEF INFORMATION SECURITY OFFICER) Only the most recent of 2 results within the time period is included. Battery Name BLOOD CULTURE MAIN LAB Report Status FINAL 03/21/2021 MAIN LAB Specimen BLOOD ARM, LEFT ANTECUBITAL MAIN L AB Description Special No special requests [facility] MAIN LAB Requests Culture NO GROWTH 5 DAYS MAIN LAB Specimen Blood Performing Organization Address [facility] P shane Number MAIN LAB [address] [place] [address] * FREE T4-FREE THYROXINE (03/14/2021 9:10 PM CHIEF INFORMATION SECURITY OFFICER) T4-Free 0.9 0.6 - 1.6 NG/DL MAIN LAB Specimen Performing Organization Address [facility] Code P shane Number MAIN LAB [address] [place] [address] * (ABNORMAL) TSH WITH FREE T4 REFLEX (03/14/2021 9:10 PM CHIEF INFORMATION SECURITY OFFICER) TSH 8.95 (H) 0.35 - 5.00 MCU/ML [facility] MAIN LAB Specimen Blood (substance) Performing Organization Address City/[facility]/ZIP Code P shane Number MAIN LAB [address] [place] [address] * (ABNORMAL) AMMONIA (03/14/2021 9:10 PM CHIEF INFORMATION SECURITY OFFICER) Ammonia 54 (H) 9 - 35 MCMOL/L [facility] MAIN LAB Specimen Blood (substance) Performing Organization Address City/State/ZIP Code P shane Number MAIN LAB [address] [place] [address] * CHEST SINGLE VIEW (03/14/2021 9:04 PM CHIEF INFORMATION SECURITY OFFICER) Modality Anatomical Region Laterality Computed Radiography Chest Specimen Impressions [facility] RES[facility] - 03/15/2021 8:42 AM CHIEF INFORMATION SECURITY OFFICER Stable mild cardiomegaly and findings of CHF. Poor depth of inspiration with bibasilar atelectasis. Finalized by Theo Pinto M.D. on 03/15/2021 8:42 AM. Dictated by Theo Pinto M.D. on 03/15/2021 8:42 AM. Narrative [facility] RESULTS - 03/15/2021 8:42 AM CHIEF INFORMATION SECURITY OFFICER Single view INDICATION: Evaluate for pneumonia COMPARISON CHEST FILM: December 22, 2020 FINDINGS: Devices: Sternotomy wires, prosthetic aortic valve and surgical clips remain in place. Heart And Pulmonary Vasculature: The heart size is mildly enlarged with persistent pulmonary vascular congestion. Lungs and Pleura: There is poor depth of inspiration with bibasilar atelectasis. No pleural effusion or pneumothorax is identified. Procedure Note Theo Pinto MD - 03/15/2021 Single view INDICATION: Evaluate for pneumonia COMPARISON CHEST FILM: December 22, 2020 FINDINGS: Devices: Sternotomy wires, prosthetic aortic valve and surgical clips remain in place. Heart And Pulmonary Vasculature: The heart size is mildly enlarged with persistent pulmonary vascular congestion. Lungs and Pleura: There is poor depth of inspiration with bibasilar atelectasis. No pleural effusion or pneumothorax is identified. IMPRESSION Stable mild cardiomegaly and findings of CHF. Poor depth of inspiration with bibasilar atelectasis. Finalized by Theo Pinto M.D. on 03/15/2021 8:42 AM. Dictated by Theo Pinto M.D. on 03/15/2021 8:42 AM. Performing Organization Address City/State/ZIP Code P shane Number [facility] RESULTS * CT ABD/PEL EXTERNAL IMAGING (03/14/2021 12:05 AM CHIEF INFORMATION SECURITY OFFICER) Modality Anatomical Region Laterality Computed Radiography Specimen Narrative Scheduling, Silent - 04/11/2021 2:13 PM CHIEF INFORMATION SECURITY OFFICER This order has been auto finalized and does not contain a result. * CT HEAD EXTERNAL IMAGING (03/14/2021 12:00 AM CHIEF INFORMATION SECURITY OFFICER) Modality Anatomical Region Laterality Computed Radiography Specimen Narrative Scheduling, Silent - 04/11/2021 2:12 PM CHIEF INFORMATION SECURITY OFFICER This order has been auto finalized and does not contain a result. * TELEMETRY STRIPS-SCAN (03/14/2021 12:00 AM CHIEF INFORMATION SECURITY OFFICER) Narrative 03/14/2021 12:00 AM CHIEF INFORMATION SECURITY OFFICER Ordered by an unspecified provider. * ECG-SCAN (03/14/2021 12:00 AM CHIEF INFORMATION SECURITY OFFICER) Narrative 03/14/2021 12:00 AM CHIEF INFORMATION SECURITY OFFICER Ordered by an unspecified provider. from Last 3 Months Insurance Type Payer Benefit Subscriber ID Effective Phone Address Plan / Dates Group Medicare MEDICARE MEDICARE [id number] 1999- [phone] [address] AND Present [address] [place] [address] [place] [id number] 2020-P [phone] [address] MEDICAID resent [id number] [place] [address] [facility]HO [id number] 11/13/2020- [address] Present [facility]/[address] /[place] [address] 9544 Advance Directives Patient Visitor Services Technician Explanation Type Date Recorded Advance 10/26/2020 12:00 AM Directive/DPOA Advance 10/20/2020 11:41 AM Directive/DPOA Date Inactivated Comments Code Status Date Activated 03/22/2021 3:41 PM Full Code 03/14/2021 9:35 PM Provider has discussed Code Status Yes w/Patient or Family? 2021 2:22 PM Full Code 01/02/2021 1:21 [...] more discussi on w/Patient or Family? needed Care Teams Start Date End Date Metal Numerical Tool Programmer Relationship Specialty 05/15/20 Garfield Gray MD PCP - [address] [id number] 06/13/20 Riley Hopson MD Consulting Cardiovascul [address] Physician ar Disease [address] [place], [place] [address] 12/20/20 Gino Pandya, ELECTRICAL MECHANICAL TECHNICIAN-FUNDRAISING MANAGER Nurse Nurse [address] [address] 01/19/21 Teri Brandon Continuum of Care Case Management
[2021-04-14] MEDS ORDERED: NOREPINEPHRINE 8 MG/250 ML 250 ML IV SCH ×2 (19:00→20:15)
[2021-04-14] MEDS ORDERED: NS IV 1000 ML 1,000 ML IV SCH ×2 (19:00→21:00)
--- OUTSIDE RECORDS SUMMARY | 2021-04-14 19:00 | XMS REPORT | Encounter Summary ---
Author Author [facility] Organization [facility] Address Unknown Phone Unavailable Care Team Providers Care Computer Science Intern Name Role Phone Self, Garfield OLVERA PCP Riley Hopson MD [phone] Gino Pandya MISSILE MECHANIC-RUBBER STAMP ASSEMBLER [phone] Teri Brandon [phone] Unavailable Encounter Details Care Team Description Date Type Department Fernie Camargo LPN 04/10/2021 Documentation Cardiology: [facility] [address] [place] [address] [address] 1, [address] [place] [address] Social History Date Tobacco Use Types Packs/Day Years Used Never Smoker Smokeless Tobacco: Never Used Comments Alcohol Use Standard Drinks/Week Not Currently 0 (1 standard drink = 0.6 o z pure alcohol) Sex Assigned at Date Recorded Female 06/01/2020 1:44 PM FINANCIAL INSTITUTION VICE PRESIDENT Date Recorded COVID-19 Exposure Response 04/06/2021 12:38 PM FINANCIAL INSTITUTION VICE PRESIDENT In the last month, have you been [...] Date Type Specialty Carlos Longo MD 4000 [facility] [address] [place] [address] Giancarlo Meneses MD 4000 [facility] 2nd [place] [address] Clarissa Harmon Stephanie, RT(R)(),LRT 04/16/2021 Hospital Radiology Encounter documented as of this encounter Goals Goal Patient Associated Recent Progress Patient-Stat Aut hor Goal Type Problems ed? Improve [facility] On track (03/20/2021 Yes [place], 1:41 PM FINANCIAL INSTITUTION VICE PRESIDENT) CHRYSTAL Singh Improve [facility] On track (03/20/2021 Yes [place], 1:41 PM FINANCIAL INSTITUTION VICE PRESIDENT) CHRYSTAL Singh Note: "To get better and stronger." documented as of this encounter Procedures Comments Procedure Name Priority Date/Time Associated Diag nosis HOME INR Routine 04/10/2021 documented in this encounter Results * HOME INR (04/10/2021) INR Home 2.7 OTHER OUTSIDE LAB Specimen Narrative OTHER OUTSIDE LAB - 04/10/2021 Called in by [facility] [id number]. Performing Organization Address City/State/ZIP Code P shane Number OTHER OUTSIDE LAB documented in this encounter Visit Diagnoses Not on filedocumented in this encounter Additional Health Concerns Noted Time Assessment 04/06/2021 12:41 PM FINANCIAL INSTITUTION VICE PRESIDENT A fall risk assessment has been complet ed for the patient 12/07/2020 3:18 PM CDT PHQ-2 Depression Total Score: 2 documented as of this encounter Care Teams Start Date End Date Computer Science Intern Relationship Specialty 05/15/20 Garfield Gray MD PCP - General [address] [place] [address] 06/13/20 Riley Hopson MD Consulting Cardiovascul [address] Physician ar Disease [address] [place] [address] 12/20/20 Gino Pandya, MISSILE MECHANIC-RUBBER STAMP ASSEMBLER Nurse Nurse [address] [place] [address] 01/19/21 Teri Brandon Continuum of Care Case Management documented as of this encounter
--- OUTSIDE RECORDS SUMMARY | 2021-04-14 19:00 | XMS REPORT | Encounter Summary ---
Author Author [facility] Organization [facility] Address Unknown Phone Unavailable Care Team Providers Care Coatings Inspector Name Role Phone Self, Garfield OLVERA PCP Riley Hopson MD [phone] Gino Pandya APRN-INCENDIARY POWDER MIXER [phone] Teri Brandon [phone] Unavailable Reason for Visit * Reason Comments Anticoagulation INR 1.6 Encounter Details Care Team Description Date Type Department Josi Purvis BSN Anticoagulation (INR 1.6) 04/04/2021 Anticoagulation Cardiology: [facility] [address] [place] [address] 1, [address] [place] [address] Social History Date Tobacco Use Types Packs/Day Years Used Never Smoker Smokeless Tobacco: Never Used Comments Alcohol Use Standard Drinks/Week Not Currently 0 (1 standard drink = 0.6 o z pure alcohol) Sex Assigned at Date Recorded Female 06/01/2020 1:44 PM AUTOMOTIVE HEAVY MECHANIC Date Recorded COVID-19 Exposure Response 04/03/2021 12:48 PM AUTOMOTIVE HEAVY MECHANIC In the last month, have you been [...] Longo MD 4000 [facility] [address] [place] [address] Giancarlo Meneses MD 4000 [facility] 2nd [place] [address] Clarissa Harmon Stephanie, RT(R)(),LRT 04/16/2021 Hospital Radiology Encounter documented as of this encounter Goals Goal Patient Associated Recent Progress Patient-Stat Aut hor Goal Type Problems ed? Improve [facility] On track (03/20/2021 Yes [place], 1:41 PM AUTOMOTIVE HEAVY MECHANIC) CHRYSTAL Singh [facility] On track (03/20/2021 Yes [place], 1:41 PM AUTOMOTIVE HEAVY MECHANIC) CHRYSTAL Singh Note: "To get better and stronger." documented as of this encounter Visit Diagnoses Diagnosis Hx of mechanical aortic valve replaceme nt - Primary Heart valve replaced by other means Chronic anticoagulation Long-term (current) use of anticoagulan ts Paroxysmal atrial fibrillation (HCC) Atrial fibrillation documented in this encounter Additional Health Concerns Noted Time Assessment 03/30/2021 2:23 PM AUTOMOTIVE HEAVY MECHANIC A fall risk assessment has been complet ed for the patient 12/07/2020 3:18 PM CDT PHQ-2 Depression Total Score: 2 documented as of this encounter Care Teams Start Date End Date Coatings Inspector Relationship Specialty 05/15/20 Garfield Gray MD PCP - [address] [place] [address] 06/13/20 Riley Hopson MD Consulting Cardiovascul [address] Physician ar Disease [address] [place] [id number] 12/20/20 Gino Pandya, OIL DERRICK OPERATOR-INCENDIARY POWDER MIXER Nurse Nurse 4000 [facility] [id number] , [place] [address] 01/19/21 Teri Brandon Continuum of Care Case Management documented as of this encounter
--- OUTSIDE RECORDS SUMMARY | 2021-04-14 19:00 | XMS REPORT | Encounter Summary ---
Author Author [facility] Organization [facility] Address Unknown Phone Unavailable Care Team Providers Care Veneer Jointer Operator Name Role Phone Self, Garfield OLVERA PCP Riley Hopson MD [phone] Gino Pandya QUALITY CONTROL TECH RAW MATERIALS-SECURITIES ATTORNEY [phone] Teri Brandon [phone] Unavailable Reason for Visit * Reason Onset Date Comments Appointment 03/27/2021 Reschedule Valve ev aluation Encounter Details Care Team Description Date Type Department Christy Soriano RN Appointment (Reschedule Valve evaluation ) 03/27/2021 Telephone Cardiology: [facility] 4000 [facility], [address] [place] [address] Social History Date Tobacco Use Types Packs/Day Years Used Never Smoker Smokeless Tobacco: Never Used Comments Alcohol Use Standard Drinks/Week Not Currently 0 (1 standard drink = 0.6 o z pure alcohol) Sex Assigned at Date Recorded Female 06/01/2020 1:44 PM PEDIATRIC PHYSICIAN ASSISTANT Date Recorded COVID-19 Exposure Response 03/14/2021 2:50 PM PEDIATRIC PHYSICIAN ASSISTANT In the last month, have you [...] Telephone Encounter - Christy Soriano RN - 03/27/2021 3:11 PM PEDIATRIC PHYSICIAN ASSISTANT Spoke to Ms. Olea regarding rescheduling her valve evaluation. Determined it be st to only reschedule her echo and office visit. Updated on the dates below and she is agreeable to the schedule for valve evaluation. She had futher questions regarding her fluid restrictions and paracentesis that I advised her would need to be address with her Hepatology team. She plans to contact them. Future Appointments Date Time Provider Department Center 04/12/2021 11:30 AM [facility] SPECIAL PROC/RESEARCH [facility] CVM Procedur 04/12/2021 1:30 PM Stiven Walker MD M[facility]UCL CVM Exam 04/20/2021 10:00 AM Andrea Monterroso MD MPAPDERM IM 06/08/2021 9:15 AM [facility] Radiolog 06/08/2021 10:30 AM Jeanette Garcia, QUALITY CONTROL TECH RAW MATERIALS-SECURITIES ATTORNEY CFT LTX HEP CFT [facility] ATRIC PHYSICIAN ASSISTANT documented in this encounter Plan of Treatment Care Team Description Date Type Specialty Carlos Longo MD 4000 [facility] [address] [place] [address] Giancarlo Meneses MD 4000 [facility] 2nd [place] [address] Clarissa Harmon Stephanie, RT(R)(),LRT 04/16/2021 Hospital Radiology Encounter documented as of this encounter Goals Goal Patient Associated Recent Progress Patient-Stat Aut hor Goal Type Problems ed? [facility] On track (03/20/2021 Yes [place], 1:41 PM PEDIATRIC PHYSICIAN ASSISTANT) CHRYSTAL Singh [facility] On track (03/20/2021 Yes [place], 1:41 PM PEDIATRIC PHYSICIAN ASSISTANT) Samantha RN Note: "To get better and stronger." documented as of this encounter Visit Diagnoses Not on filedocumented in this encounter Additional Health Concerns Noted Time Assessment 03/22/2021 8:43 AM PEDIATRIC PHYSICIAN ASSISTANT A fall risk assessment has been complet ed for the patient 12/07/2020 3:18 PM CDT PHQ-2 Depression Total Score: 2 documented as of this encounter Care Teams Start Date End Date Veneer Jointer Operator Relationship Specialty 05/15/20 Garfield Gray MD PCP - [address] [address] 06/13/20 Riley Hopson MD Consulting Cardiovascul [address] Physician ar Disease [address] [place] [address] 12/20/20 Gino Pandya, QUALITY CONTROL TECH RAW MATERIALS-SECURITIES ATTORNEY Nurse Nurse [address] [place] [address] 01/19/21 Teri Brandon Continuum of Care Case Management documented as of this encounter
--- OUTSIDE RECORDS SUMMARY | 2021-04-14 19:00 | XMS REPORT | Encounter Summary ---
Author Author [facility] [place] [facility] Organization [facility] [place] Address Unknown Phone Unavailable Care Team Providers Care Shrimp Peeling Machine Tender Name Role Phone Self, Garfield OLVERA PCP Riley Hopson MD [phone] Gino Pandya ART SPECIALIST-TEXTILE SUPERVISOR [phone] Teri Brandon [phone] Unavailable Reason for Visit * Reason Onset Date Comments Follow-up Phone Call 03/27/2021 Called to Steven Deutsch to review current options for P.O.C. Encounter Details Care Team Description Date Type Department Sherin Mata BSN Follow-up Phone Call (Called to [facility] to review current options for P.O.C. ) 03/27/2021 Telephone Cardiology: [facility] [address] [place] [address] 1, [address] [place] [address] Social History Date Tobacco Use Types Packs/Day Years Used Never Smoker Smokeless Tobacco: Never Used Comments Alcohol Use Standard Drinks/Week Not Currently 0 (1 standard drink = 0.6 o z pure alcohol) Sex Assigned at Date Recorded Female 06/01/2020 1:44 PM STONECUTTER HAND Date Recorded COVID-19 Exposure Response 03/14/2021 2:50 PM STONECUTTER HAND In the last month, have you [...] Telephone Encounter - Sherin Mata BSN - 03/27/2021 4:00 PM STONECUTTER HAND Called to speak to Care Team at [facility], [facility] Spoke w/Tamera the acting DON who reports pt has been refusing her Lo venox, but she is taking 3-1mg tablets of coumadin every evening. I did inform her that pt's therapeutic goal for INR is 1.5-2.0. So the 1.8 INR from 03/26 is t herapeutic. I informed her that we will address lovenox dosage w/Provider, but in the mean time keep offering pt the BID dose prescribed(60mg BID sq) and stay on the 3mg coumadin daily. Recheck INR on Thursday 03/30 and we can readdress couma din. Tamera also asked about paracentesis for pt. I let her know that Pt let' s us know when she is needing that as she knows her body well. She has a standi ng order w/our IR dept. I asked about transportation services and they report [facility] would most likely utilize their Van services should the need arise. Tamera verbalized understanding and agreed to current P.O.C. I provided Nurse triage number to her and she reported the name of nurse Perlita Hopson that will be caring f or pt this afternoon after Tamera leaves. I let them know I will call back to check in before I go off shift as well. ECUTTER HAND documented in this encounter Plan of Treatment Care Team Description Date Type Specialty Carlos Longo MD 4000 [facility] [place] [address] Giancarlo Meneses MD 4000 [facility] [address] [place] [address] Clarissa Harmon Stephanie, RT(R)(),LRT 04/16/2021 Hospital Radiology Encounter documented as of this encounter Goals Goal Patient Associated Recent Progress Patient-Stat Aut hor Goal Type Problems ed? Improve [facility] On track (03/20/2021 Yes [place], 1:41 PM STONECUTTER HAND) CHRYSTAL Singh Improve [facility] On track (03/20/2021 Yes [place], 1:41 PM STONECUTTER HAND) CHRYSTAL Singh Note: "To get better and stronger." documented as of this encounter Visit Diagnoses Not on filedocumented in this encounter Additional Health Concerns Noted Time Assessment 03/22/2021 8:43 AM STONECUTTER HAND A fall risk assessment has been complet ed for the patient 12/07/2020 3:18 PM CDT PHQ-2 Depression Total Score: 2 documented as of this encounter Care Teams Start Date End Date Shrimp Peeling Machine Tender Relationship Specialty 05/15/20 Garfield Gray MD PCP - [address] [address] 06/13/20 Riley Hopson MD Consulting Cardiovascul [address] Physician ar Disease [address] [place], [place] [address] 12/20/20 Gino Pandya, ART SPECIALIST-TEXTILE SUPERVISOR Nurse Nurse 4000 [facility] [place] [address] 01/19/21 Teri Brandon Continuum of Care Case Management documented as of this encounter
--- OUTSIDE RECORDS SUMMARY | 2021-04-14 19:00 | XMS REPORT | Encounter Summary ---
Author Author [facility] Organization [facility] Address Unknown Phone Unavailable Care Team Providers Care Delivery Coordinator Name Role Phone Self, Garfield OLVERA PCP Riley Hopson MD [phone] Gino Pandya APRN-WET ROOM SUPERVISOR [phone] Teir Brandon [phone] Unavailable Reason for Visit * Reason Comments Labs Only Encounter Details Care Team Description Date Type Department Shea Barnes Labs Only 03/27/2021 Documentation Cardiology: [facility] [address] [place] [address] 1, [address] [place] [address] Social History Date Tobacco Use Types Packs/Day Years Used Never Smoker Smokeless Tobacco: Never Used Comments Alcohol Use Standard Drinks/Week Not Currently 0 (1 standard drink = 0.6 o z pure alcohol) Sex Assigned at Date Recorded Female 06/01/2020 1:44 PM FINANCIAL SALES PROFESSIONAL Date Recorded COVID-19 Exposure Response 03/14/2021 2:50 PM FINANCIAL SALES PROFESSIONAL In the last month, have you been [...] Date Type Specialty Carlos Longo MD 4000 [facility] [address] [place] [address] Giancarlo Meneses MD 4000 [facility] 2[address] [place] [address] Clarissa Harmon Stephanie, RT(R)(),LRT 04/16/2021 Hospital Radiology Encounter documented as of this encounter Goals Goal Patient Associated Recent Progress Patient-Stat Aut hor Goal Type Problems ed? Improve [facility] On track (03/20/2021 Yes [place], 1:41 PM FINANCIAL SALES PROFESSIONAL) CHRYSTAL Singh Improve [facility] On track (03/20/2021 Yes [place], 1:41 PM FINANCIAL SALES PROFESSIONAL) CHRYSTAL Singh Note: "To get better and stronger." documented as of this encounter Visit Diagnoses Not on filedocumented in this encounter Additional Health Concerns Noted Time Assessment 03/22/2021 8:43 AM FINANCIAL SALES PROFESSIONAL A fall risk assessment has been complet ed for the patient 12/07/2020 3:18 PM CDT PHQ-2 Depression Total Score: 2 documented as of this encounter Care Teams Start Date End Date Delivery Coordinator Relationship Specialty 05/15/20 Garfield Gray MD PCP - [address] [address] 06/13/20 Riley Hopson MD Consulting Cardiovascul [address] Physician ar Disease [address] [place] [address] 12/20/20 Gino Pandya, ACTIVITIES COUNSELOR-WET ROOM SUPERVISOR Nurse Nurse 4000 [facility] [id number] , [place] [address] 01/19/21 Teri Brandon Continuum of Care Case Management documented as of this encounter
--- OUTSIDE RECORDS SUMMARY | 2021-04-14 19:00 | XMS REPORT | Encounter Summary ---
Author Author [facility] Organization [facility] Address Unknown Phone Unavailable Care Team Providers Care Manufacturing Engineering Technologist Name Role Phone Self, Garfield OLVERA PCP Riley Hopson MD [phone] Gino Pandya APRN-COMMERCIAL FISHERMAN [phone] Teri Brandon [phone] Unavailable Encounter Details Care Team Description Date Type Department Sherin Mata BSN 03/30/2021 Anticoagulation Cardiology: [facility] [address] [place] [address] 1, [address] [place] [address] Social History Date Tobacco Use Types Packs/Day Years Used Never Smoker Smokeless Tobacco: Never Used Comments Alcohol Use Standard Drinks/Week Not Currently 0 (1 standard drink = 0.6 o z pure alcohol) Sex Assigned at Date Recorded Female 06/01/2020 1:44 PM CAD DESIGNER Date Recorded COVID-19 Exposure Response 03/30/2021 2:13 PM CAD DESIGNER In the last month, have you been [...] Progress Notes * Sherin Mata BSN - 03/30/2021 5:03 PM CAD DESIGNER Spoke to Perlita JARRELL about pt INR (1.2). Perlita reports that they only have 3mg cou madins on hand at this time. Directed her to give 3 mg today(after paracentesis performed today), give 6mg tomorrow 03/31, 3mg 04/01 and redraw INR on Sunday 04/02. She verbalized understanding of this change and will order 1mg tablets to hope fully have on-hand next week. DESIGNER documented in this encounter Plan of Treatment Care Team Description Date Type Specialty Carlos Longo MD 4000 [facility] [place] [address] Giancarlo Meneses MD 4000 [facility] 2nd [place] [address] Clarissa Harmon Stephanie, RT(R)(),LRT 04/16/2021 Hospital Radiology Encounter documented as of this encounter Goals Goal Patient Associated Recent Progress Patient-Stat Aut hor Goal Type Problems ed? Improve [facility] On track (03/20/2021 Yes [place], 1:41 PM CAD DESIGNER) CHRYSTAL Singh Improve [facility] On track (03/20/2021 Yes [place], 1:41 PM CAD DESIGNER) CHRYSTAL Singh Note: "To get better and stronger." documented as of this encounter Visit Diagnoses Diagnosis Hx of mechanical aortic valve replaceme nt - Primary Heart valve replaced by other means Chronic anticoagulation Long-term (current) use of anticoagulan ts Paroxysmal atrial fibrillation (HCC) Atrial fibrillation documented in this encounter Additional Health Concerns Noted Time Assessment 03/30/2021 2:23 PM CAD DESIGNER A fall risk assessment has been complet ed for the patient 12/07/2020 3:18 PM CDT PHQ-2 Depression Total Score: 2 documented as of this encounter Care Teams Start Date End Date Manufacturing Engineering Technologist Relationship Specialty 05/15/20 Garfield Gray MD PCP - [address] [address] 06/13/20 Riley Hopson MD Consulting Cardiovascul [address] Physician ar Disease [address] [place], [place] [address] 12/20/20 Gino Pandya, ASSISTANT EXECUTIVE HOUSEKEEPER-COMMERCIAL FISHERMAN Nurse Nurse 4000 [facility] , [place] [address] 01/19/21 Teri Brandon Continuum of Care Case Management documented as of this encounter
--- OUTSIDE RECORDS SUMMARY | 2021-04-14 19:00 | XMS REPORT | Encounter Summary ---
Author Author [facility] Organization [facility] Address Unknown Phone Unavailable Care Team Providers Care Video Poker Floorman Name Role Phone Self, Garfield OLVERA PCP Riley Hopson MD [phone] Gino Pandya TRAY DELIVERY AIDE-SENIOR COMPENSATION CONSULTANT [phone] Teri Brandon [phone] Unavailable Reason for Visit * Radiology Services (Routine) - Authorized Diagnoses / Procedures Referred By Contact Referred To Conta ct Specialty Diagnoses Chronic heart failure with preserved ejection fraction (HCC) RVF (right ventricular failure) (HCC) Other cirrhosis of liver (HCC) Procedures IR PARACENTESIS THERAPEUTIC Carlos Longo MD [address] [address] [place] [place] [address] [place] [address] Radiology Referral ID Status Reason Start Date Expiration Visits Vi sits Date Requested Authorized [id number] Authorized 01/22/2021 01/22/2022 20 20 Encounter Details Care Team Description Date Type Department Carlos Longo MD [address] [address] [place] [address], [address] [place] [phone] Canceled (Patient-Personal) 03/22/2021 Hospital Interventional Radi ology: Encounter Desean Chavez [facility] [address] [place] [phone] Social History Date Tobacco Use Types Packs/Day Years Used Never Smoker Smokeless Tobacco: Never Used Comments Alcohol Use Standard Drinks/Week Not Currently 0 (1 standard drink = 0.6 o z pure alcohol) Sex Assigned at Date Recorded Female 06/01/2020 1:44 PM BEHAVIORAL HEALTH SPECIALIST Date Recorded COVID-19 Exposure Response 03/14/2021 2:50 PM BEHAVIORAL HEALTH SPECIALIST In the last month, have you been [...] 0 tablet tablets by mouth daily. 03/22/2021 03/28/2021 enoxaparin (LOVENOX) 60 Inject 0.6 mL 0 mg syringe under the skin daily. 03/22/2021 04/12/2021 metoprolol tartrate 25 mg Take one-half 180 tablet 0 tablet tablet by mouth twice daily. documented as of this encounter Discharge Disposition Code Departure Means Destination Disposition Home Home or Self Care documented in this encounter Progress Notes * Brigitte Hinojosa RN - 03/22/2021 9:00 AM BEHAVIORAL HEALTH SPECIALIST Interventional Radiology Outpatient Scheduling Checklist 1. Name of Procedure(s): Paracentesis 2. Date of Procedure: 03/22/21 3. Arrival Time: 0800 4. Procedure Time: 0900 5. Correct Procedural Room Assignment: [facility] Room 1 6. Blood Thinners Triaged and instructed per protocol: Y/N/NA: Yes. Pt is t aking Warfarin and was instructed to continue taking per protocol. Confirmed accurate instructions sent to patient: Y/N: NA 7. Procedure Order Verified: Y/N: Yes 9. Patient instructed to have a straight truck driver: Y/N/NA: Yes 10. Patient instructed [...] procedure instructions: Y/N: No; refused mychar t VIORAL HEALTH SPECIALIST documented in this encounter Miscellaneous Notes * Patient Education - Brigitte Hinojosa RN - 03/22/2021 9:00 AM BEHAVIORAL HEALTH SPECIALIST Dear Ms. Paulson, Thank you for choosing [facility] Interventional Rad iology for your procedure. Your appointment information is listed below: Appointment Date: 03/22/21 Appointment Time: 9:00 AM Arrival Time: 8:00 AM Location: [facility]: [address] [place] [address] Parking: available in the front of the building INTERVENTIONAL RADIOLOGY PRE-PROCEDURE INSTRUCTIONS LOCAL You are scheduled for a procedure in Interventional Radiology. Please follow [facility] instructions and any direction from your Primary Care/Managing Physician. I f you have questions about your procedure or need to reschedule please call [phone]. Medication Instructions: Continue scheduled medication. Diet Instructions: [...] your care and activities after the procedure. VIORAL HEALTH SPECIALIST documented in this encounter Plan of Treatment Care Team Description Date Type Specialty Carlos Longo MD 4000 [facility] [id number] [place] [address] Giancarlo Meneses MD 4000 [facility] [address] [place] [address] Clarissa Harmon Stephanie, (R)(),LRT 04/16/2021 Hospital Radiology Encounter documented as of this encounter Goals Goal Patient Associated Recent Progress Patient-Stat Aut hor Goal Type Problems ed? Improve [facility] On track (03/20/2021 Yes Sheldon, 1:41 PM BEHAVIORAL HEALTH SPECIALIST) CHRYSTAL Singh Improve [facility] On track (03/20/2021 Yes Sheldon, 1:41 PM BEHAVIORAL HEALTH SPECIALIST) CHRYSTAL Singh Note: "To get better and stronger." documented as of this encounter Procedures Comments Procedure Name Priority Date/Time Associated Diag nosis ECG-SCAN 03/22/2021 12:00 AM BEHAVIORAL HEALTH SPECIALIST documented in this encounter Results * ECG-SCAN (03/22/2021 12:00 AM BEHAVIORAL HEALTH SPECIALIST) Narrative 03/22/2021 12:00 AM BEHAVIORAL HEALTH SPECIALIST Ordered by an unspecified provider. documented in this encounter Visit Diagnoses Not on filedocumented in this encounter Additional Health Concerns Noted Time Assessment 03/22/2021 8:43 AM BEHAVIORAL HEALTH SPECIALIST A fall risk assessment has been complet ed for the patient 12/07/2020 3:18 PM CDT PHQ-2 Depression Total Score: 2 documented as of this encounter Care Teams Start Date End Date Video Poker Floorman Relationship Specialty 05/15/20 Garfield Gray MD PCP - [address] [address] 06/13/20 Riley Hopson MD Consulting Cardiovascul [address] Physician [address] Disease [address] [place], [place] [address] 12/20/20 Gino Pandya, TRAY DELIVERY AIDE-SENIOR COMPENSATION CONSULTANT Nurse Nurse [address] [address] 01/19/21 Teri Brandon Continuum of Care Case Management documented as of this encounter
--- OUTSIDE RECORDS SUMMARY | 2021-04-14 19:00 | XMS REPORT | Encounter Summary ---
Author Author [facility] Organization [facility] Address Unknown Phone Unavailable Care Team Providers Care Math Interventionist Name Role Phone Self, Garfield OLVERA PCP Riley Hopson MD [phone] Gino Pandya APRN-TWYLA [phone] Teri Brandon [phone] Unavailable Reason for Referral * Radiology Services (Routine) - Authorized Diagnoses / Procedures Referred By Contact Referred To Conta ct Specialty Diagnoses Chronic heart failure with preserved ejection fraction (HCC) History of endocarditis Non-ischemic cardiomyopathy (HCC) Other cirrhosis of liver (HCC) Procedures IR PARACENTESIS THERAPEUTIC Nithya Madison APRN-NP [address] [place] [address] [place] [place] [address] [place] [address] Radiology Referral ID Status Reason Start Date Expiration Visits Vi sits Date Requested Authorized [id number] Authorized 03/12/2021 03/12/2022 8 8 TY SURVEYOR Reason for Visit * Radiology Services (Routine) - Authorized Diagnoses / Procedures Referred By Contact Referred To Conta ct Specialty Diagnoses Chronic heart failure with preserved ejection fraction (HCC) History of endocarditis Non-ischemic cardiomyopathy (HCC) Other cirrhosis of liver (HCC) Procedures IR PARACENTESIS THERAPEUTIC Nithya Madison APRN-NP [address] [place] [address] [place] [place] [address] [place] [address] Radiology Referral ID Status Reason Start Date Expiration Visits Vi sits Date Requested Authorized [id number] Authorized 03/12/2021 03/12/2022 8 8 Encounter Details Care Team Description Date Type Department [place], [place] [address], [address] [place] [address] Roxanne Meléndez, RT(R)(),LRT Miracle Morales, Karsten Park MD [address] [address] Chronic heart failure with preserved eje ction fraction (HCC) 04/03/2021 Hospital Interventional Radi ology: Encounter Maritza Oviedo [facility] [address] [place] [address] Social History Date Tobacco Use Types Packs/Day Years Used Never Smoker Smokeless Tobacco: Never Used Comments Alcohol Use Standard Drinks/Week Not Currently 0 (1 standard drink = 0.6 o z pure alcohol) Sex Assigned at Date Recorded Female 06/01/2020 1:44 PM COUNTY SURVEYOR Date Recorded COVID-19 Exposure Response 04/03/2021 12:48 PM COUNTY SURVEYOR In the last month, have you been in contact with No / Unsure someone who was confirmed or suspected to have Coronavirus / COVID-19? documented as of this encounter Last Filed Vital Signs Reading Time Taken Comments Vital Sign 103/69 04/03/2021 2:45 PM COUNTY SURVEYOR Blood Pressure - - Pulse 36.7 C (98 F) 04/03/2021 1:09 PM COUNTY SURVEYOR Temperature - - Respiratory Rate 98% 04/03/2021 2:45 PM COUNTY SURVEYOR Oxygen Saturation - - Inhaled Oxygen Concentration 54.4 kg (120 lb) 04/03/2021 1:02 PM COUNTY SURVEYOR Weight - - Height 21.94 03/30/2021 2:17 PM COUNTY SURVEYOR Body Mass Index documented in this encounter [...] Progress Notes * Kayden Felix RN - 04/03/2021 2:00 PM COUNTY SURVEYOR Interventional Radiology Outpatient Scheduling Checklist 1.Name of Procedure(s):Paracentesis 2.Date of Procedure:04/03 and 04/06/2021 3.Arrival Time: 1300 4.Procedure Time: 1400 5.Correct Procedural Room Assignment:[facility] Rad Room #2 and SONO 6.Blood Thinners Triaged and instructed per protocol: Y/N/NA: Patient taking Coumadin, OK to continue per protocol. Confirmed accurate instructions sent to patient: Y/N:YES 7.Procedure Order Verified: Y/N: Yes 9.Patient instructed to have a cmv driver: Y/N/NA: Yes 10.Patient instructed on NPO status: Y/N/NA: NO Restrictions. Confirmed accurate instructions sent to patient: Y/N: Yes 11.Specimen needed: Y/N/NA: NO Verified Order placed: Y/N:N/A 12.Allergies Verified:Y/N:Yes 13.Is there an Iodine Allergy: Y/N:No Does the Procedure Require contrast: Y/N:NO If so, was the IR- Contrast Allergy Pre-Procedure Medication protocol ordered: Y /NA: NA 14.Does the patient have labs according to IR Pre-procedure Laboratory [place] eter policy: Y/N/NA: Yes If No, was the patient instructed to obtain labs prior to procedure: Y/N/NA: N A 15.Will the patient need to be admitted or have a possible admission: Y/N: No If yes, confirmed accurate instructions sent to patient: Y/N/NA: NA 16.Patient States Understanding:Y/N: Yes 17.History of CATE:Y/N: No If yes, confirm request to bring CPAP sent to patient: Y/N/NA: NA 18. Patient declines electronic procedure instructions: Y/N: No TY SURVEYOR documented in this encounter H&P Notes * Karsten Griffiths MD - 04/03/2021 2:00 PM COUNTY SURVEYOR Pre Procedure History and Physical/Sedation Plan-OP Procedure Date: 04/03/2021 Planned Procedure(s): Para Indication: ascites Chief Complaint: above History of Present Illness: Zaria Paulson is a 61 y.o. female. Patient Active Problem List Diagnosis Date Noted Encephalopathy 03/14/2021 Fall 2021 Acute kidney injury superimposed on CKD (HCC) 01/02/2021 Severe malnutrition (HCC) 12/27/2020 Severe sepsis (HCC) 12/22/2020 Acute on chronic diastolic (congestive) heart failure (HCC) 12/10/2020 RVF (right ventricular failure) ([facility] [...] Bao Hernández MD at [facility] COLONOSCOPY DIAGNOSTIC WITH SPECIMEN COLLECTION BY BRUSHING/ WASHING - FLEXI BLE N/A 06/06/2020 Performed by Bao Hernández MD at [facility] ANGIOGRAPHY CORONARY ARTERY WITH RIGHT AND LEFT HEART CATHETERIZATION N/A Performed by Higinio Clarke MD at [facility] ESCALATION ENGINEER POSSIBLE PERCUTANEOUS CORONARY STENT PLACEMENT WITH ANGIOPLASTY N/A Performed by Higinio Clarke MD at [facility] ESCALATION ENGINEER ESOPHAGOGASTRODUODENOSCOPY WITH SPECIMEN COLLECTION BY BRUSHING/ WASHING N/A 10/21/2020 Performed by Cosmo Gomez MD at [facility] SIGMOIDOSCOPY WITH CONTROL OF BLEEDING - FLEXIBLE N/A 10/21/2020 Performed by Cosmo Gomez MD at [facility] SIGMOIDOSCOPY WITH DIRECTED SUBMUCOSAL INJECTION - FLEXIBLE 10/21/2020 Performed by Cosmo Gomez MD at [facility] ESOPHAGOGASTRODUODENOSCOPY WITH CONTROL OF BLEEDING - FLEXIBLE N/A Performed by Bao Hernández MD at [facility] (Not in a hospital admission) No Known [...] No pertinent labs Karsten Griffiths MD Pager TY SURVEYOR documented in this encounter Procedure Notes * Karsten Griffiths MD - 04/03/2021 2:07 PM COUNTY SURVEYOR Immediate Post Procedure Note Date: 04/03/2021 Attending Physician: Sussy Griffiths Associate Store Manager(s): Helen Procedure(s): para Indications: ascites Findings: above Anesthesia: Local 7 mL 1% lidocaine without epinephrine Sedation/Medication Plan: Other Time out performed: Consent obtained, correct patient verified, correct procedur e verified, correct site verified, patient marked as necessary. Estimated Blood Loss: None/Negligible Specimen(s) Removed/Disposition: None Complications: None Comments: Karsten Griffiths MD TY SURVEYOR documented in this encounter Miscellaneous Notes * Patient Education - Kayden Felix RN - 04/03/2021 2:00 PM COUNTY SURVEYOR Dear Ms Paulson, Thank you for choosing The [facility] Interventional Rad iology for your procedure. Your appointment information is listed below: Appointment Date: 04/03 and 04/06/2021 Appointment Time: 2PM Arrival Time: 1PM Location: [facility]: [address] [place] [address] Parking: available in the front of the building INTERVENTIONAL RADIOLOGY PRE-PROCEDURE INSTRUCTIONS LOCAL You are scheduled for a procedure in Interventional Radiology. [facility] and any direction from your Primary Care/Managing Physician. I f you have questions about your procedure or need to reschedule please call [phone]. Medication Instructions: Continue scheduled medication. Diet Instructions: [...] minutes to 2 hours after your exam depgabriela ding on your procedure. 5. Depending on the [...] your care and activities after the procedure. TY SURVEYOR * Patient Instructions - Sharmila Combs RN - 04/03/2021 1:12 PM COUNTY SURVEYOR Images from the original note were not [...] to the procedu re performed at the [place] Location, call [phone] Friday-Friday from 7 -5p. After-hours and weekends, please call [phone] and ask for the [facility] Lavatory Attendant on-call. You or your caregiver should call 911 for any severe symptoms such as excessive bleeding, severe dizziness, trouble breathing or loss of consciousness. TY SURVEYOR documented in this encounter Plan of Treatment Care Team Description Date Type Specialty Carlos Longo MD 4000 [facility] [place], [place] [phone] Giancarlo Meneses MD 4000 [facility] [address] [place] [address] Clarissa Harmon Stephanie, RT(R)(),LRT 04/16/2021 Hospital Radiology Encounter documented as of this encounter Goals Goal Patient Associated Recent Progress Patient-Stat Aut hor Goal Type Problems ed? Improve [facility] On track (03/20/2021 Yes Sheldon, 1:41 PM COUNTY SURVEYOR) CHRYSTAL Singh Improve [facility] On track (03/20/2021 Yes Sheldon, 1:41 PM COUNTY SURVEYOR) CHRYSTAL Singh Note: "To get better and stronger." documented as of this encounter Procedures Comments Procedure Name Priority Date/Time Associated Diag nosis IR PARACENTESIS Routine 04/03/2021 Chronic heart failure THERAPEUTIC 2:14 PM COUNTY SURVEYOR with preserved ejec tion fraction (HCC) History of endocarditis Non-ischemic cardiomyopathy (HCC) Other cirrhosis of liver (HCC) HC CELL COUNT Routine 04/03/2021 Other cirrhosis of liver W/DIFF-FLUIDS 2:02 PM COUNTY SURVEYOR (HCC) documented in this encounter Results * IR PARACENTESIS THERAPEUTIC (04/03/2021 2:14 PM COUNTY SURVEYOR) Modality Anatomical Region Laterality X-Ray Angiography Specimen Impressions [facility] RESULTS - 04/03/2021 2:24 PM COUNTY SURVEYOR IMPRESSION: Ultrasound guided paracentesis with removal of 2.8 liters of fluid. Karsten Toribio M.D., the attending radiologist, was present for the procedure, personally reviewed the images, and formulated the interpretations and opinions expressed in this report. @TT Finalized by Karsten Griffiths M.D. on 04/03/2021 2:24 PM. Dictated by Karsten Griffiths M.D. on 04/03/2021 2:24 PM. Narrative [facility] RESULTS - 04/03/2021 2:24 PM COUNTY SURVEYOR Exam: Ultrasound-guided paracentesis. History: Ascites. Technique: After obtaining informed written consent the patient was placed supine on the procedure table. Using ultrasound guidance, an appropriate insertion site in the right lower quadrant was marked. The patient was prepped and draped in the usual sterile fashion. Lidocaine was used for local anesthesia. A Pxn-L-Bewzkrdl needle was inserted into the abdomen, with return of clear yellow fluid. Fluid was removed, the total amount as listed below. The needle was removed. Hemostasis was achieved using manual compression. The patient tolerated procedure well, and left the department in good condition. Procedure Note Karsten Griffiths MD - 04/03/2021 Exam: Ultrasound-guided paracentesis. History: Ascites. Technique: After obtaining informed written consent the patient was placed supine on the procedure table. Using ultrasound guidance, an appropriate insertion site in the right lower quadrant was marked. The patient was prepped and draped in the usual sterile fashion. Lidocaine was used for local anesthesia. A Wqy-R-Zuamljga needle was inserted into the abdomen, with return of clear yellow fluid. Fluid was removed, the total amount as listed below. The needle was removed. Hemostasis was achieved using manual compression. The patient tolerated procedure well, and left the department in good condition. IMPRESSION IMPRESSION: Ultrasound guided paracentesis with removal of 2.8 liters of fluid. Karsten Toribio M.D., the attending radiologist, was present for the procedure, personally reviewed the images, and formulated the interpretations and opinions expressed in this report. @TT Finalized by Karsten Griffiths M.D. on 04/03/2021 2:24 PM. Dictated by Karsten Griffiths M.D. on 04/03/2021 2:24 PM. Performing Organization Address City/State/ZIP Code P shane Number [facility] RESULTS * CELL COUNT W/DIFF-FLUIDS (04/03/2021 2:02 PM COUNTY SURVEYOR) White Blood 120 /UL [facility] Cells,Fluid Red Blood 11,700 /UL [facility] Cells,Fluid Segmented 3 % [facility] Neutrophils, Fluid Lymphocytes,Flu 40 % [facility] id Monocyte/Histo, 47 % [facility] Fluid Other,Fluid 10 % [facility] Fluid Source FLUID [facility] PARACENTESIS FLUID Pathology HEMORRHAGIC FLUID [facility] Interpretation, Fluid Pathologist INTERPRETED BY KALYN CERVANTES M.D. [facility] Signature By the PATH SIGNATURE ABOVE , I attest that I have personally formulated the final interpretation expressed in this report and that the above diagnosis is based upon my examination of the slides and/or other material indicated in this report. Specimen Fluid - Body fluid sample (specimen) Performing Organization Address City/[facility]/ZIP Code P shane Number [facility] [address] [place] [address] documented in this encounter Visit Diagnoses Diagnosis Chronic heart failure with preserved ej ection fraction (HCC) History of endocarditis Personal history of other diseases of c irculatory system Non-ischemic cardiomyopathy (HCC) Other primary cardiomyopathies Other cirrhosis of liver (HCC) documented in this encounter Administered Medications Action Date Dose Rate Site Medication Order MAR Action 04/03/2021 2:10 PM COUNTY SURVEYOR 12.5 g albumin 25% injection Given - New INTRA-PROCEDURE MED(CONT), Starting on Bag e 04/03/21 at 1407, Until Fri04/03/21 at 1410 12.5 g Given - New Bag 04/03/2021 2:07 PM COUNTY SURVEYOR documented in this encounter Active and Recently Administered Medications Times are shown in COUNTY SURVEYOR. 04/02/2021 04/03/2021 Medication Order 04/01/2021 1407 (Given - New Bag - Provider: Sadia Morales RN)1410 (Given - New Bag - Provider: Miracle Morales RN) albumin 25% injection (COMPLETED) INTRA-PROCEDURE MED(CONT), Starting on Tu04/03/21 at 1407, Until Fri04/03/21 at 1410 documented in this encounter Additional Health Concerns Noted Time Assessment 03/30/2021 2:23 PM COUNTY SURVEYOR A fall risk assessment has been complet ed for the patient 12/07/2020 3:18 PM CDT PHQ-2 Depression Total Score: 2 documented as of this encounter Care Teams Start Date End Date Math Interventionist Relationship Specialty 05/15/20 Garfield Gray MD PCP - [address] [address] 06/13/20 Riley Hopson MD Consulting Cardiovascul [address] Physician [address] Disease [address] [place], [place] [address] 12/20/20 Gino Pandya, EQUAL EMPLOYMENT OPPORTUNITY OFFICER-NUTRITION AIDES TEACHER Nurse Nurse [address] [place] [phone] 01/19/21 Teri Brandon Continuum of Care Case Management documented as of this encounter
--- OUTSIDE RECORDS SUMMARY | 2021-04-14 19:00 | XMS REPORT | Encounter Summary ---
Author Author [facility] Organization [facility] Address Unknown Phone Unavailable Care Team Providers Care Supervisor Briar [employer] Name Role Phone Self, Garfield OLVERA PCP Riley Hopson MD [phone] Gino Pandya APRN-CYBER SECURITY CONSULTANT [phone] Teri Brandon [phone] Unavailable Reason for Visit * Reason Comments Anticoagulation INR 1.8 Encounter Details Care Team Description Date Type Department Vilma Parham RN Anticoagulation (INR 1.8) 03/27/2021 Anticoagulation Cardiology: [facility] [address] [place] [address] 1, [address] [place] [address] Social History Date Tobacco Use Types Packs/Day Years Used Never Smoker Smokeless Tobacco: Never Used Comments Alcohol Use Standard Drinks/Week Not Currently 0 (1 standard drink = 0.6 o z pure alcohol) Sex Assigned at Date Recorded Female 06/01/2020 1:44 PM JUNIOR DATABASE ADMINISTRATOR Date Recorded COVID-19 Exposure Response 03/14/2021 2:50 PM JUNIOR DATABASE ADMINISTRATOR In the last month, have you been [...] as of this encounter Progress Notes * Vilma Parham, RN - 03/27/2021 5:46 PM JUNIOR DATABASE ADMINISTRATOR Reviewed with Dr Longo via phone call - no need to bridge with Lovenox. 03/27/2021 5:53 PM OR DATABASE ADMINISTRATOR documented in this encounter Plan of Treatment Care Team Description Date Type Specialty Carlos Longo MD 4000 [facility] [address] [place], [place] [phone] Giancarlo Meneses MD 4000 [facility] [address]nd [place] [address] Clarissa Harmon Stephanie, RT(R)(),LRT 04/16/2021 Hospital Radiology Encounter documented as of this encounter Goals Goal Patient Associated Recent Progress Patient-Stat Aut hor Goal Type Problems ed? Improve [facility] On track (03/20/2021 Yes Sheldon, 1:41 PM JUNIOR DATABASE ADMINISTRATOR) CHRYSTAL Singh Improve [facility] On track (03/20/2021 Yes Sheldon, 1:41 PM JUNIOR DATABASE ADMINISTRATOR) CHRYSTAL Singh Note: "To get better and stronger." documented as of this encounter Visit Diagnoses Not on filedocumented in this encounter Additional Health Concerns Noted Time Assessment 03/22/2021 8:43 AM JUNIOR DATABASE ADMINISTRATOR A fall risk assessment has been complet ed for the patient 12/07/2020 3:18 PM CDT PHQ-2 Depression Total Score: 2 documented as of this encounter Care Teams Start Date End Date Supervisor Briar Shop Relationship Specialty 05/15/20 Garfield Gray MD PCP - General [address] [place] [address] 06/13/20 Riley Hopson MD Consulting Cardiovascul [address] Physician ar Disease [address] [place] [address] 12/20/20 Gino Pandya, CHRONOMETER ASSEMBLER AND ADJUSTER-CYBER SECURITY CONSULTANT Nurse Nurse [address] [place] [address] 01/19/21 Teri Brandon Continuum of Care Case Management documented as of this encounter
--- OUTSIDE RECORDS SUMMARY | 2021-04-14 19:00 | XMS REPORT | Encounter Summary ---
Author Author [facility] Organization [facility] Address Unknown Phone Unavailable Care Team Providers Care Window Machine Operator Name Role Phone Self, Garfield OLVERA PCP Riley Hopson MD [phone] Gino Pandya HEAD ATHLETIC TRAINER-UNEMPLOYMENT INSURANCE DIRECTOR [phone] Teri Brandon [phone] Unavailable Reason for Visit * Reason Onset Date Comments Scheduling 04/10/2021 Encounter Details Care Team Description Date Type Department Gino Pandya, HEAD ATHLETIC TRAINER-UNEMPLOYMENT INSURANCE DIRECTOR 4000 [facility] [id number] [place], [place] [phone] Scheduling 04/10/2021 Telephone Palliative Care: [place] in [place], [address], [address] [place] [address] Social History Date Tobacco Use Types Packs/Day Years Used Never Smoker Smokeless Tobacco: Never Used Comments Alcohol Use Standard Drinks/Week Not Currently 0 (1 standard drink = 0.6 o z pure alcohol) Sex Assigned at Date Recorded Female 06/01/2020 1:44 PM HISTOLOGIST Date Recorded COVID-19 Exposure Response 04/06/2021 12:38 PM HISTOLOGIST In the last month, have you been [...] * Telephone Encounter - Ruchi Montez - 04/10/2021 8:52 AM HISTOLOGIST I had finally spoken to pt this morning and she states that she will call me [facility] when she is ready to schedule an appointment with Gino. Per pt has decline sc heduling appt for now. Ruchi OLOGIST * Telephone Encounter - Ruchi Montez - 04/10/2021 8:51 AM HISTOLOGIST ----- Message from HOSSEIN Chow sent at 04/05/2021 9:48 AM HISTOLOGIST ----- Regarding: call to schedule appt Can you please call this patient and see if she would like to bet set up for a t elehealth visit with me in next 1-2 weeks? I have seen pt in the past and she is aware her providers would like for me to see her again in follow-up. Thanks! Gino OLOGIST documented in this encounter Plan of Treatment Care Team Description Date Type Specialty Carlos Longo MD 4000 [facility] [id number] [place] [address] Giancarlo Meneses MD 4000 [facility] [address]nd [place] [address] Clarissa Harmon Stephanie, RT(R)(),LRT 04/16/2021 Hospital Radiology Encounter documented as of this encounter Goals Goal Patient Associated Recent Progress Patient-Stat Aut hor Goal Type Problems ed? Improve [facility] On track (03/20/2021 Yes Sheldon, 1:41 PM HISTOLOGIST) CHRYSTAL Singh [facility] On track (03/20/2021 Yes Sheldon, 1:41 PM HISTOLOGIST) CHRYSTAL Singh Note: "To get better and stronger." documented as of this encounter Visit Diagnoses Not on filedocumented in this encounter Additional Health Concerns Noted Time Assessment 04/06/2021 12:41 PM HISTOLOGIST A fall risk assessment has been complet ed for the patient 12/07/2020 3:18 PM CDT PHQ-2 Depression Total Score: 2 documented as of this encounter Care Teams Start Date End Date Window Machine Operator Relationship Specialty 05/15/20 Garfield Gray MD PCP - [address] [phone] 06/13/20 Riley Hopson MD Consulting Cardiovascul [address] [place] [address] Physician ar Disease [address] [place], [place] [address] 12/20/20 Gino Pandya, HEAD ATHLETIC TRAINER-UNEMPLOYMENT INSURANCE DIRECTOR Nurse Nurse [address] [address] 01/19/21 Teri Brandon Continuum of Care Case Management documented as of this encounter
--- OUTSIDE RECORDS SUMMARY | 2021-04-14 19:00 | XMS REPORT | Encounter Summary ---
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 Care Nuclear Unit Operator Name Role Phone Self, Garfield OLVERA PCP Riley Hopson MD [phone] Gino Pandya CLAIMS SUPERVISOR-STRAIGHTENER [phone] Teri Brandon [phone] Unavailable Encounter Details Care Team Description Date Type Department Sherin Mata BSN Chronic heart failure with preserved eje ction fraction (HCC); Other cirrhosis of liver (HCC); Encephalopathy; Pre-procedure lab exam; Severe tricuspid regurgitation 04/02/2021 Orders Only Cardiology: [facility] 4000 [facility] 1, [address] [place] [address] Social History Date Tobacco Use Types Packs/Day Years Used Never Smoker Smokeless Tobacco: Never Used Comments Alcohol Use Standard Drinks/Week Not Currently 0 (1 standard drink = 0.6 o z pure alcohol) Sex Assigned at Date Recorded Female 06/01/2020 1:44 PM JOB INTERVIEWER Date Recorded COVID-19 Exposure Response 03/30/2021 2:13 PM JOB INTERVIEWER In the last month, have you been [...] Date Type Specialty Carlos Longo MD 4000 [facility] TFP751 [place] [address] Giancarlo Meneses MD 4000 [facility] 2nd [place] [address] Clarissa Harmon Stephanie, RT(R)(),LRT 04/16/2021 Hospital Radiology Encounter documented as of this encounter Goals Goal Patient Associated Recent Progress Patient-Stat Aut hor Goal Type Problems ed? Improve [facility] On track (03/20/2021 Yes Sinclair, 1:41 PM JOB INTERVIEWER) CHRYSTAL Singh [facility] On track (03/20/2021 Yes Sheldon, 1:41 PM JOB INTERVIEWER) CHRYSTAL Singh Note: "To get better and stronger." documented as of this encounter Procedures Comments Procedure Name Priority Date/Time Associated Diag nosis BASIC METABOLIC PANEL Routine 03/29/2021 Pre-proc edure lab exam 4:10 PM JOB INTERVIEWER Severe tricuspid regurgitation documented in this encounter Results * (ABNORMAL) BASIC METABOLIC PANEL (03/29/2021 4:10 PM JOB INTERVIEWER) Sodium 135 [facility] Potassium 3.4 [...] MAIN LAB eGFR 50 [facility] [place] Anion Gap 9 [facility] Specimen Blood - Blood (substance) Narrative Performing Organization Address City/State/ZIP Code P shane Number [facility] [address] [place] [address] documented in this encounter Visit Diagnoses Diagnosis Chronic heart failure with preserved ej ection fraction (HCC) Other cirrhosis of liver (HCC) Encephalopathy Encephalopathy, unspecified Pre-procedure lab exam Pre-procedural laboratory examination Severe tricuspid regurgitation Diseases of tricuspid valve documented in this encounter Orders First Ordered Date Lab Orders Without Results Count Last Ordere d Date PROTIME INR (PT) 1 04/02/2021 documented in this encounter Additional Health Concerns Noted Time Assessment 03/30/2021 2:23 PM JOB INTERVIEWER A fall risk assessment has been complet ed for the patient 12/07/2020 3:18 PM CDT PHQ-2 Depression Total Score: 2 documented as of this encounter Care Teams Start Date End Date Nuclear Unit Operator Relationship Specialty 05/15/20 Garfield Gray MD PCP - [address] [phone] 06/13/20 Riley Hopson MD Consulting Cardiovascul [address] [place] [address] Physician ar Disease [address] [place], [place] [address] 12/20/20 Gino Pandya, CLAIMS SUPERVISOR-STRAIGHTENER Nurse Nurse [address] [address] 01/19/21 Teri Brandon Continuum of Care Case Management documented as of this encounter
--- OUTSIDE RECORDS SUMMARY | 2021-04-14 19:00 | XMS REPORT | Encounter Summary ---
Author Author [facility] Organization [facility] Address Unknown Phone Unavailable Care Team Providers Care Ceramic Products Sales Engineer Name Role Phone Self, Garfield OLVERA PCP Riley Hopson MD [phone] Gino Pandya CORNCOB PIPE MANUFACTURING SUPERVISOR-JEWEL BEARING DRILLER [phone] Teri Brandon [phone] Unavailable Reason for Visit * Reason Onset Date Comments Other 04/04/2021 Encounter Details Care Team Description Date Type Department Jeanette Garcia, CORNCOB PIPE MANUFACTURING SUPERVISOR-JEWEL BEARING DRILLER 4000 [facility] [address]st [place] [address] Other 04/04/2021 Telephone Transplant: Main Ca mpus, [facility] 4000 [facility] Level 1, [address] [place] [address] Social History Date Tobacco Use Types Packs/Day Years Used Never Smoker Smokeless Tobacco: Never Used Comments Alcohol Use Standard Drinks/Week Not Currently 0 (1 standard drink = 0.6 o z pure alcohol) Sex Assigned at Date Recorded Female 06/01/2020 1:44 PM ACCIDENT EXAMINER Date Recorded COVID-19 Exposure Response 04/03/2021 12:48 PM ACCIDENT EXAMINER In the last month, have you been [...] encounter Miscellaneous Notes * Telephone Encounter - Jeanette Garcia APRN-NP - 04/05/2021 8:13 AM ACCIDENT EXAMINER Returned called- all questions answered DENT EXAMINER * Telephone Encounter - Adriana Gallegos - 04/04/2021 1:28 PM ACCIDENT EXAMINER Patricia, Admin with [facility] in [place], would like to speak with Jeanette . No other details were given. Plz call [phone] DENT EXAMINER documented in this encounter Plan of Treatment Care Team Description Date Type Specialty Carlos Lonog MD 4000 [facility] LFF713 [place] [address] Giancarlo Meneses MD 4000 [facility] [address] [place] [address] Clarissa Harmon Stephanie, RT(R)(),LRT 04/16/2021 Hospital Radiology Encounter documented as of this encounter Goals Goal Patient Associated Recent Progress Patient-Stat Aut hor Goal Type Problems ed? Improve [facility] On track (03/20/2021 Yes Sheldon, 1:41 PM ACCIDENT EXAMINER) CHRYSTAL Singh [facility] On track (03/20/2021 Yes Sheldon, 1:41 PM ACCIDENT EXAMINER) CHRYSTAL Singh Note: "To get better and stronger." documented as of this encounter Visit Diagnoses Not on filedocumented in this encounter Additional Health Concerns Noted Time Assessment 03/30/2021 2:23 PM ACCIDENT EXAMINER A fall risk assessment has been complet ed for the patient 12/07/2020 3:18 PM CDT PHQ-2 Depression Total Score: 2 documented as of this encounter Care Teams Start Date End Date Ceramic Products Sales Engineer Relationship Specialty 05/15/20 Garfield Gray MD PCP - [address] [address] 06/13/20 Riley Hopson MD Consulting Cardiovascul [address] Physician ar Disease [address] [place] [address] 12/20/20 Gino Pandya, CORNCOB PIPE MANUFACTURING SUPERVISOR-JEWEL BEARING DRILLER Nurse Nurse [address] [place] [address] 01/19/21 Teri Brandon Continuum of Care Case Management documented as of this encounter
--- OUTSIDE RECORDS SUMMARY | 2021-04-14 19:00 | XMS REPORT | Encounter Summary ---
Author Author [facility] Organization [facility] Address Unknown Phone Unavailable Care Team Providers Care Faculty Member Name Role Phone Self, Garfield OLVERA PCP Riley Hopson MD [phone] Gino Pandya APRN-MANUFACTURING ADVISOR [phone] Teri Brandon [phone] Unavailable Reason for Referral * Radiology Services (Routine) - Authorized Diagnoses / Procedures Referred By Contact Referred To Conta ct Specialty Diagnoses Other cirrhosis of liver (HCC) Procedures IR PARACENTESIS DIAGNOSTIC + THERAPEUTIC Jeanette Garcia APRN-NP 4000 [facility] 1[address] [place] [address] [place] [place] [address] [facility] 1 [place] [address] Radiology Referral ID Status Reason Start Date Expiration Visits Vi sits Date Requested Authorized [id number] Authorized 04/02/2021 04/02/2022 20 20 [place] GUIDE Encounter Details Care Team Description Date Type Department Jeanette Garcia APRN-NP [address] [phone] Other cirrhosis of liver (HCC) (Primary Dx) 04/02/2021 Orders Only Transplant: Main Ca mpus, [facility] 4000 [facility] Level 1, [address] [place] [phone] Social History Date Tobacco Use Types Packs/Day Years Used Never Smoker Smokeless Tobacco: Never Used Comments Alcohol Use Standard Drinks/Week Not Currently 0 (1 standard drink = 0.6 o z pure alcohol) Sex Assigned at Date Recorded Female 06/01/2020 1:44 PM [place] RIVER GUIDE Date Recorded COVID-19 Exposure Response 03/30/2021 2:13 PM [place] GUIDE In the last month, have you [...] Date Type Specialty Carlos Longo MD 4000 [facility] [id number] [place] [address] Giancarlo Meneses MD 4000 [facility] [address] [place] [address] Clarissa Harmon Stephanie, RT(R)(),LRT 04/16/2021 [facility] Radiology Encounter Order Schedule Name Type Priority Associated Diag noses Twice a Week Auto for 20 Occurrences sta rting 04/02/2021 until 09/30/2021, 1 completed IR PARACENTESIS Imaging Routine Other cirrhosi s of liver DIAGNOSTIC + THERAPEUTIC (HCC) Twice a Week Auto for 20 Occurrences sta rting 04/02/2021 until 09/30/2021, 2 completed CELL COUNT W/DIFF-FLUIDS Lab Routine Other cirrhosis of liver (HCC) documented as of this encounter Goals Goal Patient Associated Recent Progress Patient-Stat Aut hor Goal Type Problems ed? Improve [facility] On track (03/20/2021 Yes Sheldon, 1:41 PM [place] GUIDE) CHRYSTAL Singh [facility] On track (03/20/2021 Yes Sheldon, 1:41 PM [place] GUIDE) CHRYSTAL Singh Note: "To get better and stronger." documented as of this encounter Results * IR PARACENTESIS DIAGNOSTIC + THERAPEUTIC (04/11/2021 2:44 PM [place] GUIDE) Modality Anatomical Region Laterality Ultrasound Specimen Impressions [facility] RESULTS - 04/11/2021 3:12 PM [place] GUIDE Successful ultrasound guided paracentesis. 3700 mL of [...] [facility] RESULTS - 04/11/2021 3:12 PM [place] GUIDE Ultrasound-guided paracentesis CLINICAL INDICATION: Ascites. Other cirrhosis of liver. WORKDAY FINANCIALS CONSULTANT: Fred Johnson M.D. and Jose Jovel M.D. MEDICATIONS: Lidocaine TECHNIQUE: Transverse real time images were obtained through the abdomen. The risks and benefits of this procedure were discussed and informed written consent was obtained prior to performing the procedure. The abdomen was then prepped and draped in usual sterile fashion. Limited ultrasound of the abdomen was performed. Under ultrasound guidance, a 5 Albanian centesis needle was advanced into the peritoneal [...] CLINICAL INDICATION: Ascites. Other cirrhosis of liver. WORKDAY FINANCIALS CONSULTANT: Fred Johnson M.D. and Jose Jovel M.D. MEDICATIONS: Lidocaine TECHNIQUE: Transverse real time images were obtained through the abdomen. The risks and benefits of this procedure were discussed and informed written consent was obtained prior to performing the procedure. The abdomen was then prepped and draped in usual sterile fashion. Limited ultrasound of the abdomen was performed. Under ultrasound guidance, a 5 Albanian centesis needle was advanced into the peritoneal [...] * CELL COUNT W/DIFF-FLUIDS (04/11/2021 2:17 PM [place] GUIDE) White Blood 79 /UL [facility] [...] Body fluid sample (specimen) Performing Organization Address City/[facility]/ZIP Code P shane Number [facility] [address] [place] [address] * CELL COUNT W/DIFF-FLUIDS (04/03/2021 2:02 PM [place] GUIDE) White Blood 120 /UL [facility] [...] LAB Interpretation, Fluid Pathologist INTERPRETED BY KALYN SPARKS RUTH N LAB Signature By the PATH SIGNATURE ABOVE , I attest that I have personally formulated the final interpretation expressed in this report and that the above diagnosis is based upon my examination of the slides and/or other material indicated in this report. Specimen Fluid - Body fluid sample (specimen) Performing Organization Address City/[facility] P shane Number [facility] [address] [place] [address] documented in this encounter Visit Diagnoses Diagnosis Other cirrhosis of liver (HCC) - Primar y Other cirrhosis of liver (HCC) documented in this encounter Additional Health Concerns Noted Time Assessment 03/30/2021 2:23 PM [place] GUIDE A fall risk assessment has been complet ed for the patient 12/07/2020 3:18 PM CDT PHQ-2 Depression Total Score: 2 documented as of this encounter Care Teams Start Date End Date Faculty Member Relationship Specialty 05/15/20 Garfield Gray MD PCP - General [address] [place] [place] [address] 06/13/20 Riley Hopson MD Consulting Cardiovascul [address] [place] [address] Physician ar Disease [address] [place] [address] 12/20/20 Gino Pandya, STATE GAME WARDEN-MANUFACTURING ADVISOR Nurse Nurse [address] [place] [address] 01/19/21 Teri Brandon Continuum of Care Case Management documented as of this encounter
--- OUTSIDE RECORDS SUMMARY | 2021-04-14 19:00 | XMS REPORT | Encounter Summary ---
Author Author [facility] Organization [facility] Address Unknown Phone Unavailable Care Team Providers Care Community Relations Officer Name Role Phone Self, Garfield OLVERA PCP Riley Hopson MD [phone] Gino Pandya DIGITAL PRODUCTION ARTIST-RN NIGHT [phone] Teri Brandon [phone] Unavailable Reason for Visit * Reason Onset Date Comments Follow-up Phone Call 03/28/2021 [facility] Encounter Details Care Team Description Date Type Department Sherin Mata BSN Follow-up Phone Call ([facility] w[facility]) 03/28/2021 Telephone Cardiology: [facility] [address] [place] [address] 1, [address] [place] [address] Social History Date Tobacco Use Types Packs/Day Years Used Never Smoker Smokeless Tobacco: Never Used Comments Alcohol Use Standard Drinks/Week Not Currently 0 (1 standard drink = 0.6 o z pure alcohol) Sex Assigned at Date Recorded Female 06/01/2020 1:44 PM HAIR STYLIST Date Recorded COVID-19 Exposure Response 03/14/2021 2:50 PM HAIR STYLIST In the last month, have you been [...] Telephone Encounter - Sherin Mata BSN - 03/28/2021 9:33 AM HAIR STYLIST Spoke w/Crystal regarding anticoag P.O.C. D/C lovenox, and continue 3mg warfari n q pm and recheck INR to our clinic-Number provided STYLIST documented in this encounter Plan of Treatment Care Team Description Date Type Specialty Carlos Longo MD 4000 [facility] [id number] [place] [address] Giancarlo Meneses MD 4000 [facility] [address] [place] [address] Clarissa Harmon Stephanie, RT(R)(),LRT 04/16/2021 Hospital Radiology Encounter documented as of this encounter Goals Goal Patient Associated Recent Progress Patient-Stat Aut hor Goal Type Problems ed? Improve [facility] On track (03/20/2021 Yes Sheldon, 1:41 PM HAIR STYLIST) CHRYSTAL Singh Improve [facility] On track (03/20/2021 Yes Sheldon, 1:41 PM HAIR STYLIST) CHRYSTAL Singh Note: "To get better and stronger." documented as of this encounter Visit Diagnoses Not on filedocumented in this encounter Discontinued Medications Start Date End Date Medication Sig Discontinue Reason 03/22/2021 03/28/2021 enoxaparin (LOVENOX) 60 Inject 0.6 Ineffective mg syringe mL under the Therapy skin daily. documented as of this encounter Additional Health Concerns Noted Time Assessment 03/22/2021 8:43 AM HAIR STYLIST A fall risk assessment has been complet ed for the patient 12/07/2020 3:18 PM CDT PHQ-2 Depression Total Score: 2 documented as of this encounter Care Teams Start Date End Date Community Relations Officer Relationship Specialty 05/15/20 Garfield Gray MD PCP - [address] [address] 06/13/20 Riley Hopson MD Consulting Cardiovascul [address] Physician ar Disease [address] [place], [place] [address] 12/20/20 Gino Pandya, DIGITAL PRODUCTION ARTIST-RN NIGHT Nurse Nurse [address] [place] [address] 01/19/21 Teri Brandon Continuum of Care Case Management documented as of this encounter
--- OUTSIDE RECORDS SUMMARY | 2021-04-14 19:00 | XMS REPORT | Encounter Summary ---
Author Author [facility] Organization [facility] Address Unknown Phone Unavailable Care Team Providers Care Newspaper Illustrator Name Role Phone Self, Garfield OLVERA PCP Riley Hopson MD [phone] Gino Pandya WATCH TECHNICIAN-DROP WIRE ALIGNER [phone] Teri Brandon [phone] Unavailable Encounter Details Care Team Description Date Type Department 04/06/2021 Travel Social History Date Tobacco Use Types Packs/Day Years Used Never Smoker Smokeless Tobacco: Never Used Comments Alcohol Use Standard Drinks/Week Not Currently 0 (1 standard drink = 0.6 o z pure alcohol) Sex Assigned at Date Recorded Female 06/01/2020 1:44 PM PV DESIGN ENGINEER Date Recorded COVID-19 Exposure Response 04/06/2021 12:38 PM PV DESIGN ENGINEER In the last month, have you been [...] Date Type Specialty Carlos Longo MD 4000 [facility] [place] [address] Giancarlo Meneses MD 4000 [facility] [address]nd [place] [address] Clarissa Harmon Stephanie, RT(R)(),LRT 04/16/2021 Hospital Radiology Encounter documented as of this encounter Goals Goal Patient Associated Recent Progress Patient-Stat Aut hor Goal Type Problems ed? Improve [facility] On track (03/20/2021 Yes Sheldon, 1:41 PM PV DESIGN ENGINEER) CHRYSTAL Singh Improve [facility] On track (03/20/2021 Yes Sheldon, 1:41 PM PV DESIGN ENGINEER) CHRYSTAL Singh Note: "To get better and stronger." documented as of this encounter Visit Diagnoses Not on filedocumented in this encounter Additional Health Concerns Noted Time Assessment 04/06/2021 12:41 PM PV DESIGN ENGINEER A fall risk assessment has been complet ed for the patient 12/07/2020 3:18 PM CDT PHQ-2 Depression Total Score: 2 documented as of this encounter Care Teams Start Date End Date Newspaper Illustrator Relationship Specialty 05/15/20 Garfield Gray MD PCP - [address] [address] 06/13/20 Riley Hopson MD Consulting Cardiovascul [address] Physician ar Disease [address] [place], [place] [phone] 12/20/20 Gino Pandya, WATCH TECHNICIAN-DROP WIRE ALIGNER Nurse Nurse 4000 [facility] Practitioner Practitioner [facility] , [place] [address] 01/19/21 Teri Brandon Continuum of Care Case Management documented as of this encounter
--- OUTSIDE RECORDS SUMMARY | 2021-04-14 19:00 | XMS REPORT | Encounter Summary ---
Author Author [facility] Organization [facility] Address Unknown Phone Unavailable Care Team Providers Care Pharmaceutical Detailer Name Role Phone Self, Garfield OLVERA PCP Riley Hopson MD [phone] Gino Pandya APRN-APPLIANCE REPAIRER [phone] Teri Brandon [phone] Unavailable Reason for Visit * Reason Comments Labs Only Encounter Details Care Team Description Date Type Department Rufino Springer MA Labs Only 04/10/2021 Documentation Cardiology: [facility] [address] [facility] [address], [address] [place] [address] Social History Date Tobacco Use Types Packs/Day Years Used Never Smoker Smokeless Tobacco: Never Used Comments Alcohol Use Standard Drinks/Week Not Currently 0 (1 standard drink = 0.6 o z pure alcohol) Sex Assigned at Date Recorded Female 06/01/2020 1:44 PM PRODUCT/INDUSTRY CONSULTANT Date Recorded COVID-19 Exposure Response 04/06/2021 12:38 PM PRODUCT/INDUSTRY CONSULTANT In the last month, have you [...] Date Type Specialty Carlos Longo MD [address] [facility] [id number] [place] [address] Giancarlo Meneess MD [address] [facility] [address] [place] [address] Clarissa Harmon Stephanie, RT(R)(),LRT 04/16/2021 Hospital Radiology Encounter documented as of this encounter Goals Goal Patient Associated Recent Progress Patient-Stat Aut hor Goal Type Problems ed? Improve [facility] On track (03/20/2021 Yes [place], 1:41 PM PRODUCT/INDUSTRY CONSULTANT) CHRYSTAL Singh Improve [facility] On track (03/20/2021 Yes [place], 1:41 PM PRODUCT/INDUSTRY CONSULTANT) CHRYSTAL Singh Note: "To get better and stronger." documented as of this encounter Procedures Comments Procedure Name Priority Date/Time Associated Diag nosis PROTIME INR (PT) Routine 04/09/2020 Chronic heart failure with preserved ejection fraction (HCC) documented in this encounter Results * (ABNORMAL) PROTIME INR (PT) (04/09/2020) INR 2.7 (H) 0.9 - 1.7 [facility] Protime 28.1 (H) 11.3 - 14.1 MAIN LAB Specimen Blood - Blood Narrative Performing Organization Address City/State/ZIP Code P shane Number MAIN LAB [address] [place] [address] documented in this encounter Visit Diagnoses Diagnosis Chronic heart failure with preserved ej ection fraction (HCC) documented in this encounter Additional Health Concerns Noted Time Assessment 04/06/2021 12:41 PM PRODUCT/INDUSTRY CONSULTANT A fall risk assessment has been complet ed for the patient 12/07/2020 3:18 PM CDT PHQ-2 Depression Total Score: 2 documented as of this encounter Care Teams Start Date End Date Pharmaceutical Detailer Relationship Specialty 05/15/20 Garfield Gray MD PCP - [address] [address] 06/13/20 Riley Hopson MD Consulting Cardiovascul [address] Physician [address] Disease [address] [place] [address] 12/20/20 Gino Pandya, HIGH LIFT DRIVER-APPLIANCE REPAIRER Nurse Nurse [address] [place] [address] [phone] 01/19/21 Teri Brandon Continuum of Care Case Management documented as of this encounter
--- OUTSIDE RECORDS SUMMARY | 2021-04-14 19:00 | XMS REPORT | Encounter Summary ---
Author Author [facility] Organization [facility] Address Unknown Phone Unavailable Care Team Providers Care Linux Devops Engineer Name Role Phone Self, Garfield OLVERA PCP Riley Hopson MD [phone] Gino Pandya APRN-PRODUCTION SOUND MIXER [phone] Teri Brandon [phone] Unavailable Reason for Visit * Reason Comments Lab Results Encounter Details Care Team Description Date Type Department Fernie Camargo LPN Lab Results 03/30/2021 Documentation Cardiology: [facility] [address] [facility] [address] 1, [address] [place] [address] Social History Date Tobacco Use Types Packs/Day Years Used Never Smoker Smokeless Tobacco: Never Used Comments Alcohol Use Standard Drinks/Week Not Currently 0 (1 standard drink = 0.6 o z pure alcohol) Sex Assigned at Date Recorded Female 06/01/2020 1:44 PM CLINICAL TRIALS SYSTEMS ADMINISTRATOR Date Recorded COVID-19 Exposure Response 03/30/2021 2:13 PM CLINICAL TRIALS SYSTEMS ADMINISTRATOR In the last month, have you [...] Date Type Specialty Carlos Longo MD [address] [facility] [id number] [place] [address] Giancarlo Meneses MD [address] [facility] 2nd [place] [address] Clarissa Harmon Stephanie, RT(R)(),LRT 04/16/2021 Hospital Radiology Encounter documented as of this encounter Goals Goal Patient Associated Recent Progress Patient-Stat Aut hor Goal Type Problems ed? Improve [facility] On track (03/20/2021 Yes [place], 1:41 PM CLINICAL TRIALS SYSTEMS ADMINISTRATOR) CHRYSTAL Singh Improve [facility] On track (03/20/2021 Yes [place], 1:41 PM CLINICAL TRIALS SYSTEMS ADMINISTRATOR) CHRYSTAL Singh Note: "To get better and stronger." documented as of this encounter Procedures Comments Procedure Name Priority Date/Time Associated Diag nosis HOME INR Routine 03/30/2021 documented in this encounter Results * HOME INR (03/30/2021) INR Home 1.2 OTHER OUTSIDE LAB Specimen Narrative OTHER OUTSIDE LAB - 03/30/2021 Called in by [facility] [phone] Performing Organization Address City/State/ZIP Code P shane Number OTHER OUTSIDE LAB documented in this encounter Visit Diagnoses Not on filedocumented in this encounter Additional Health Concerns Noted Time Assessment 03/30/2021 2:23 PM CLINICAL TRIALS SYSTEMS ADMINISTRATOR A fall risk assessment has been complet ed for the patient 12/07/2020 3:18 PM CDT PHQ-2 Depression Total Score: 2 documented as of this encounter Care Teams Start Date End Date Linux Devops Engineer Relationship Specialty 05/15/20 Garfield Gray MD PCP - General [address] [place] [address] 06/13/20 Riley Hopson MD Consulting Cardiovascul [address] Physician ar Disease [address] [place] [address] 12/20/20 Gino Pandya, CLEARING INSPECTOR-PRODUCTION SOUND MIXER Nurse Nurse [address] [place] [id number] 01/19/21 Teri Brandon Continuum of Care Case Management documented as of this encounter
--- OUTSIDE RECORDS SUMMARY | 2021-04-14 19:00 | XMS REPORT | Encounter Summary ---
Author Author [facility] Organization [facility] Address Unknown Phone Unavailable Care Team Providers Care Front Attendant Name Role Phone Self, Garfield OLVERA PCP Riley Hopson MD [phone] Gino Pandya GLOBAL TRANSPORTATION MANAGER-EXTENSION COURSE COORDINATOR [phone] Teri Brandon [phone] Unavailable Reason for Referral * Radiology Services (Routine) - Authorized Diagnoses / Procedures Referred By Contact Referred To Conta ct Specialty Diagnoses Other cirrhosis of liver (HCC) Procedures IR PARACENTESIS DIAGNOSTIC + THERAPEUTIC Allison Marti MD [address] [place] [address] [place] [place] [address] 1 [place] [address] Radiology Referral ID Status Reason Start Date Expiration Visits Vi sits Date Requested Authorized [id number] Authorized 03/28/2021 03/28/2022 1 1 MAKER Reason for Visit * Radiology Services (Routine) - Authorized Diagnoses / Procedures Referred By Contact Referred To Conta ct Specialty Diagnoses Other cirrhosis of liver (HCC) Procedures IR PARACENTESIS DIAGNOSTIC + THERAPEUTIC Allison Marti MD [address] [place] [address] [place] [place] [address] [place] [address] Radiology Referral ID Status Reason Start Date Expiration Visits Vi sits Date Requested Authorized [id number] Authorized 03/28/2021 03/28/2022 1 1 Encounter Details Care Team Description Date Type Department Jose Jovel MD [address] [address] Shae Lino, RT(R)(),[place] [address], [address] [place] [address] Alondra Augustin, RN Other cirrhosis of liver (HCC) 03/30/2021 Hospital Interventional Radi ology: Encounter Desean Chavez [facility] [address] 1 [place] [address] Social History Date Tobacco Use Types Packs/Day Years Used Never Smoker Smokeless Tobacco: Never Used Comments Alcohol Use Standard Drinks/Week Not Currently 0 (1 standard drink = 0.6 o z pure alcohol) Sex Assigned at Date Recorded Female 06/01/2020 1:44 PM LAP MAKER Date Recorded COVID-19 Exposure Response 03/30/2021 2:13 PM LAP MAKER In the last month, have you been in contact with No / Unsure someone who was confirmed or suspected to have Coronavirus / COVID-19? documented as of this encounter Last Filed Vital Signs Reading Time Taken Comments Vital Sign 89/59 03/30/2021 3:45 PM LAP MAKER Blood Pressure - - Pulse 36.4 C (97.6 F) 03/30/2021 2:17 PM LAP MAKER Temperature - - Respiratory Rate 98% 03/30/2021 3:45 PM LAP MAKER Oxygen Saturation - - Inhaled Oxygen Concentration 54.4 kg (120 lb) 03/30/2021 2:17 PM LAP MAKER Weight 157.5 cm (5' 2.01") 03/30/2021 2:17 PM LAP MAKER Height 21.94 03/30/2021 2:17 PM LAP MAKER Body Mass Index documented in this encounter [...] Progress Notes * Willow Sue RN - 03/30/2021 3:27 PM LAP MAKER Report called to [facility] and given to CHRYSTAL Briscoe. MAKER documented in this encounter H&P Notes * Rachna Soto APRN-EXTENSION COURSE COORDINATOR - 03/30/2021 1:55 PM LAP MAKER IR Pre-Procedure History and Physical/Sedation Plan Procedure Date: 03/30/2021 Planned Procedure(s): Ultrasound-guided paracentesis Indication: Fluid testing; [...] failure (HCC) 12/10/2020 [facility]right ventricular failure[facility] 09/07/2020 Stage 3b chronic kidney disease (HCC) 09/07/2020 Atrial tachycardia ([facility]) 09/07/2020 Iron deficiency anemia 08/03/2020 High output congestive heart failure (HCC) 08/01/2020 Hypotension, unspecified 07/10/2020 Chronic heart failure with preserved ejection fraction (HCC) 06/07/2020 Anemia 06/07/2020 Severe tricuspid regurgitation 06/07/2020 Hx of mechanical aortic valve replacement 06/07/2020 Chronic anticoagulation 06/07/2020 History of endocarditis 06/07/2020 Medical History: Diagnosis Date Cancer ([facility]) Non- hodgkins lymphoma, chemo Disorder of thyroid gland Hypertension Iron deficiency anemia 08/03/2020 Iron deficiency anemia 08/03/2020 Surgical History: Procedure Laterality Date AORTIC VALVE REPLACEMENT 05/2009 mechanical ESOPHAGOGASTRODUODENOSCOPY WITH BIOPSY - FLEXIBLE N/A 06/06/2020 Performed by Bao Hernández MD at [facility] COLONOSCOPY DIAGNOSTIC WITH SPECIMEN COLLECTION BY BRUSHING/ WASHING - FLEXI BLE N/A 06/06/2020 Performed by Bao Hernández MD at [facility] ANGIOGRAPHY CORONARY ARTERY WITH RIGHT AND LEFT HEART CATHETERIZATION N/A Performed by Higinio Clarke MD at [facility] POSSIBLE PERCUTANEOUS CORONARY STENT PLACEMENT WITH ANGIOPLASTY N/A 1 Performed by Higinio Clarke MD at [facility] ESOPHAGOGASTRODUODENOSCOPY WITH SPECIMEN COLLECTION BY BRUSHING/ WASHING N/A 10/21/2020 Performed by Cosmo Gomez MD at [facility] SIGMOIDOSCOPY WITH CONTROL OF BLEEDING - FLEXIBLE N/A 10/21/2020 Performed by Cosmo Gomez MD at [facility] SIGMOIDOSCOPY WITH DIRECTED SUBMUCOSAL INJECTION - FLEXIBLE 10/21/2020 Performed by Cosmo Gomez MD at [facility] ESOPHAGOGASTRODUODENOSCOPY WITH CONTROL OF BLEEDING - FLEXIBLE N/A 1 Performed by Bao Hernández MD at [facility] Social History Tobacco Use Smoking [...] 4,000 mg of acetaminophen in 24 hours. 03/30/2021 ascorbic acid (VITAMIN C) 500 mg tablet Take 500 mg by mouth daily. 03/30/19 bumetanide (BUMEX) 1 mg tablet Take two tablets by mouth twice daily for 360 days. Will need creatinine/renal function rechecked on 03/25 prior to resuming di uretics. Cardiology (Dr. Carlos Longo) managing. 360 tablet 3 03/30/2021 calcium carbonate (OS-KRUPA) 1250 mg tablet Take 1,250 mg by mouth daily. 03/30/2021 ferrous gluconate (FERGON) 240 mg (27 mg iron) tablet Take one tablet by devin th daily. (Patient taking differently: Take 240 mg by mouth at bedtime daily.) 9 0 tablet 1 03/29/2021 fluticasone propionate (FLONASE) 50 mcg/actuation nasal spray, suspension Ap ply 1 spray to each nostril as directed daily. Shake bottle gently before using. 03/30/2021 hyoscyamine (ANASPAZ) 0.125 mg rapid dissolve tablet Place one tablet under tongue every 4 hours as needed. 180 tablet 0 03/30/2021 lactulose 10 gram/15 mL oral solution Take 30 mL by mouth every 4 hours. Tit rate to have 3-4 bowel movements per day. 03/30/2021 levothyroxine (SYNTHROID) 75 mcg tablet Take 75 mcg by mouth daily 30 minute s before breakfast. 03/30/2021 metoprolol tartrate 25 mg tablet Take one-half tablet by mouth twice daily. 180 tablet 03/30/2021 midodrine (PROAMATINE) 5 mg tablet Take three tablets by mouth three times d aily. 270 tablet 3 03/30/2021 MULTIVITAMIN PO Take 1 tablet by mouth daily. 03/30/2021 oxybutynin chloride (DITROPAN) 5 mg tablet Take one tablet by mouth daily. 1 80 tablet 0 03/30/[address] (PROTONIX) 40 mg tablet Take 40 mg by mouth twice daily. rifAXIMin (XIFAXAN) 550 mg tablet Take one tablet by mouth twice daily. 60 t ablet 11 03/30/2021 sertraline (ZOLOFT) 100 mg tablet Take one tablet by mouth twice daily. 180 tablet 0 03/30/2021 spironolactone (ALDACTONE) 25 mg tablet Take one tablet by mouth twice daily . Take with food. Will need creatinine/renal function rechecked on 03/25 prior t o resuming diuretics. Cardiology (Dr. Carlos Longo) managing. 540 tablet 3 022 VASCEPA 1 gram capsule TAKE 2 CAPSULES BY MOUTH TWICE DAILY WITH MEALS 03/30 warfarin (COUMADIN) 1 mg tablet Take three tablets by mouth daily. 120 table t 0 03/29/2021 No Known Allergies Review of Systems Constitutional: negative Respiratory: positive for dyspnea on exertion Cardiovascular: negative Gastrointestinal: positive for abdominal pain Physical Exam: Vital Signs: Last Filed In 24 Hours Vital Signs: 24 Hour Range BP: 103/77 (03/30 1416) Temp: 36.4 C (97.6 F) (03/30 1416) Respirations: 16 PER MINUTE (03/30 1416) Height: 157.5 cm (62.01") (03/30 1416) BP: (103)/(77) Temp: [36.4 C (97.6 F)] Respirations: [16 PER MINUTE] General appearance: alert and no distress noted. [...] limits activity, but is not incapacitating) Status: N/A Lab/Radiology/Other Diagnostic Tests: Labs: Pertinent labs reviewed Rachna Soto APRN-EXTENSION COURSE COORDINATOR Pager [phone] MAKER documented in this encounter Miscellaneous Notes * Patient Instructions - Willow Sue RN - 03/30/2021 2:24 PM LAP MAKER Images from the original note were not [...] to the procedu re performed at the [place] Location, call [phone] Friday-Friday from 7 -5p. After-hours and weekends, please call [phone] and ask for the [facility] Companion on-call. You or your caregiver should call [phone] for any severe symptoms such as excessive bleeding, severe dizziness, trouble breathing or loss of consciousness. MAKER documented in this encounter Plan of Treatment Care Team Description Date Type Specialty Carlos Longo MD [address] [facility] [id number] [place], [place] [id number] Giancarlo Meneses MD [address] [address] Clarissa Harmon Stephanie, RT(R)(),LRT 04/16/2021 Hospital Radiology Encounter documented as of this encounter Goals Goal Patient Associated Recent Progress Patient-Stat Aut hor Goal Type Problems ed? Improve [facility] On track (03/20/2021 Yes [place], 1:41 PM LAP MAKER) CHRYSTAL Singh [facility] On track (03/20/2021 Yes [place], 1:41 PM LAP MAKER) CHRYSTAL Singh Note: "To get better and stronger." documented as of this encounter Procedures Comments Procedure Name Priority Date/Time Associated Diag nosis IR PARACENTESIS Routine 03/30/2021 Other cirrhosi s of liver DIAGNOSTIC + THERAPEUTIC 3:16 PM LAP MAKER (HCC) HC CELL COUNT Routine 03/30/2021 Other cirrhosis of liver W/DIFF-FLUIDS 2:54 PM LAP MAKER (HCC) documented in this encounter Results * IR PARACENTESIS DIAGNOSTIC + THERAPEUTIC (03/30/2021 3:16 PM LAP MAKER) Modality Anatomical Region Laterality X-Ray Angiography Specimen Impressions [facility] RESULTS - 03/30/2021 4:03 PM LAP MAKER IMPRESSION: Successful ultrasound guided paracentesis with removal of 5 liters of fluid. IRuddy M.D., the attending radiologist, was present for the procedure, personally reviewed the images, and formulated the interpretations and opinions expressed in this report. @TT Finalized by RUDDY CONNELLY on 03/30/2021 4:03 PM. Dictated by RUDDY CONNELLY on 03/30/2021 4:03 PM. Narrative [facility] RESULTS - 03/30/2021 4:03 PM LAP MAKER Reason for exam: Paracentesis, ascites. Operators: Ruddy [...] lidocaine was used for local anesthesia. A [id number]-G-[id number] needle was inserted into the abdomen, with return of serous yellow fluid. Approximately 5 liters of fluid was removed. The patient tolerated procedure well. The patient was then escorted from the department for continued care. Procedure Note Ruddy Connelly MD - 03/30/2021 Reason for exam: Paracentesis, ascites. Operators: Ruddy [...] lidocaine was used for local anesthesia. A Thf-V-Fcytlqbv needle was inserted into the abdomen, with return of serous yellow fluid. Approximately 5 liters of fluid was removed. The patient tolerated procedure well. The patient was then escorted from the department for continued care. IMPRESSION IMPRESSION: Successful ultrasound guided paracentesis with removal of 5 liters of fluid. IRuddy M.D., the attending radiologist, was present for the procedure, personally reviewed the images, and formulated the interpretations and opinions expressed in this report. @TT Finalized by RUDDY CONNELLY on 03/30/2021 4:03 PM. Dictated by RUDDY CONNELLY on 03/30/2021 4:03 PM. Performing Organization Address City/State/ZIP Code P shane Number [facility] RESULTS * CELL COUNT W/DIFF-FLUIDS (03/30/2021 2:54 PM LAP MAKER) White Blood 87 /UL [facility] Cells,Fluid Red Blood 13,300 /UL [facility] Cells,Fluid Segmented 1 % [facility] Neutrophils, Fluid Lymphocytes,Flu 28 % [facility] id Monocyte/Histo, 66 % [facility] Fluid Other,Fluid 5 % [facility] Fluid Source FLUID [facility] PARACENTESIS FLUID Pathology HEMORRHAGIC FLUID [facility] Interpretation, Fluid Pathologist INTERPRETED BY KALYN [facility] Signature By the PATH SIGNATURE ABOVE , I attest that I have personally formulated the final interpretation expressed in this report and that the above diagnosis is based upon my examination of the slides and/or other material indicated in this report. Specimen Fluid - Body fluid sample (specimen) Performing Organization Address City/State/ZIP Code P shane Number [facility] [address] [place] [address] documented in this encounter Visit Diagnoses Diagnosis Other cirrhosis of liver (HCC) documented in this encounter Administered Medications Action Date Dose Rate Site Medication Order MAR Action 03/30/2021 3:08 PM LAP MAKER 12.5 g albumin 25% injection Given - New INTRA-PROCEDURE MED(CONT), Starting on Bag 03/30/21 at 1459, Until 03/30/21 at 1508 12.5 g Given - New Bag 03/30/2021 3:00 PM LAP MAKER 12.5 g Given - New Bag 03/30/2021 2:59 PM LAP MAKER documented in this encounter Active and Recently Administered Medications Times are shown in LAP MAKER. 03/29/2021 03/30/2021 Medication Order 03/28/2021 1459 (Given - New Bag - Provider: Alondra kwon RN)1500 (Given - New Bag - Provider: Alondra Augustin RN)1508 (Given - New Bag - Provider: Alondra Augustin RN)1545 (Infusion Stopped - Provider: Willow Sue RN) albumin 25% injection (COMPLETED) INTRA-PROCEDURE MED(CONT), Starting on 03/30/21 at 1459, Until 03/30/21 at 1508 documented in this encounter Additional Health Concerns Noted Time Assessment 03/30/2021 2:23 PM LAP MAKER A fall risk assessment has been complet ed for the patient 12/07/2020 3:18 PM CDT PHQ-2 Depression Total Score: 2 documented as of this encounter Care Teams Start Date End Date Front Attendant Relationship Specialty 05/15/20 Garfield Gray MD PCP - [address] [address] 06/13/20 Riley Hopson MD Consulting Cardiovascul [address] Physician ar Disease [address] [place] [id number] 12/20/20 Gino Pandya, GLOBAL TRANSPORTATION MANAGER-EXTENSION COURSE COORDINATOR Nurse Nurse [address] [place] [address] 01/19/21 Teri Brandon Continuum of Care Case Management documented as of this encounter
--- OUTSIDE RECORDS SUMMARY | 2021-04-14 19:00 | XMS REPORT | Encounter Summary ---
Author Author [facility] Organization [facility] Address Unknown Phone Unavailable Care Team Providers Care Director Of Curriculum Name Role Phone Self, Garfield OLVERA PCP Riley Hopson MD [phone] Gino Pandya APPLICATION INTERNSHIP-RETURN AGENT [phone] Teri Brandon [phone] Unavailable Reason for Referral * Radiology Services (Routine) - Authorized Diagnoses / Procedures Referred By Contact Referred To Conta ct Specialty Diagnoses Other cirrhosis of liver (HCC) Procedures IR PARACENTESIS DIAGNOSTIC + THERAPEUTIC Allison Marti MD [address] [place], [place] [address] [place] [address] [place] [place] [address] [address] Radiology Referral ID Status Reason Start Date Expiration Visits Vi sits Date Requested Authorized [id number] Authorized 03/28/2021 03/28/2022 1 1 COMMERCIAL SALESPERSON Reason for Visit * Reason Onset Date Comments Other 03/28/2021 Encounter Details Care Team Description Date Type Department Allison Marti MD [address] [place], [place] [address] [place], [place] [phone] Other 03/28/2021 Telephone Transplant: [facility], [address], [address] [place] [id number] Social History Date Tobacco Use Types Packs/Day Years Used Never Smoker Smokeless Tobacco: Never Used Comments Alcohol Use Standard Drinks/Week Not Currently 0 (1 standard drink = 0.6 o z pure alcohol) Sex Assigned at Date Recorded Female 06/01/2020 1:44 PM HVAC COMMERCIAL SALESPERSON Date Recorded COVID-19 Exposure Response 03/14/2021 2:50 PM HVAC COMMERCIAL SALESPERSON In the last month, have you been [...] Telephone Encounter - Shea Weiss RN - 03/28/2021 11:54 AM HVAC COMMERCIAL SALESPERSON [facility] updated about pt's para scheduled for 03/30. COMMERCIAL SALESPERSON * Telephone Encounter - Shea Weiss RN - 03/28/2021 10:28 AM HVAC COMMERCIAL SALESPERSON Returned call. Explained that cardiology office is managing plan with Lovenox an d Coumadin but per charting, they have been in touch with staff at [facility] . Requesting para to be done this Friday. Called [facility]. Confirmed that pt's boyfriend would be able to take her to [facility]. Email sent to IR scheduling. Will update pt and [facility] with availab le appointment time for para. COMMERCIAL SALESPERSON * Telephone Encounter - Albert Dobbs - 03/28/2021 9:34 AM HVAC COMMERCIAL SALESPERSON Pt called wanting to discuss having to take lovenox. Pt states that she has vomi ts every time she takes and would like to know if she will need to continue taki ng it. Pt is also needing to get a paracentesis and would like to get that done at the [place] location. Please give her a call. COMMERCIAL SALESPERSON documented in this encounter Plan of Treatment Care Team Description Date Type Specialty Carlos Longo MD 4000 [facility] [address]VM[address] [place], [place] [phone] Giancarlo Meneses MD 4000 [facility] 2nd Flr [place], [place] [phone] Clarissa Harmon Stephanie, RT(R)(),LRT 04/16/2021 Hospital Radiology Encounter documented as of this encounter Goals Goal Patient Associated Recent Progress Patient-Stat Aut hor Goal Type Problems ed? Improve [facility] On track (03/20/2021 Yes Sheldon, 1:41 PM HVAC COMMERCIAL SALESPERSON) CHRYSTAL Singh [facility] On track (03/20/2021 Yes Sheldon, 1:41 PM HVAC COMMERCIAL SALESPERSON) CHRYSTAL Singh Note: "To get better and stronger." documented as of this encounter Results * IR PARACENTESIS DIAGNOSTIC + THERAPEUTIC (03/30/2021 3:16 PM HVAC COMMERCIAL SALESPERSON) Modality Anatomical Region Laterality X-Ray Angiography Specimen Impressions [facility] RESULTS - 03/30/2021 4:03 PM HVAC COMMERCIAL SALESPERSON IMPRESSION: Successful ultrasound guided paracentesis with removal of 5 liters of fluid. Ruddy Toribio M.D., the attending radiologist, was present for the procedure, personally reviewed the images, and formulated the interpretations and opinions expressed in this report. @TT Finalized by RUDDY CONNELLY on 03/30/2021 4:03 PM. Dictated by RUDDY CONNELLY on 03/30/2021 4:03 PM. Narrative [facility] RESULTS - 03/30/2021 4:03 PM HVAC COMMERCIAL SALESPERSON Reason for exam: Paracentesis, ascites. Operators: Ruddy [...] lidocaine was used for local anesthesia. A Qnf-A-Oxifvzur needle was inserted into the abdomen, with [...] lidocaine was used for local anesthesia. A Vsi-K-Ohsyedeg needle was inserted into the abdomen, with return of serous yellow fluid. Approximately 5 liters of fluid was removed. The patient tolerated procedure well. The patient was then escorted from the department for continued care. IMPRESSION IMPRESSION: Successful ultrasound guided paracentesis with removal of 5 liters of fluid. Ruddy Toribio M.D., the attending radiologist, was present for the procedure, personally reviewed the images, and formulated the interpretations and opinions expressed in this report. @TT Finalized by RUDDY CONNELLY on 03/30/2021 4:03 PM. Dictated by RUDDY CONNELLY on 03/30/2021 4:03 PM. Performing Organization Address City/State/ZIP Code P shane Number [facility] RESULTS * CELL COUNT W/DIFF-FLUIDS (03/30/2021 2:54 PM HVAC COMMERCIAL SALESPERSON) White Blood 87 /UL [facility] Cells,Fluid Red Blood 13,300 /UL [facility] Cells,Fluid Segmented 1 % [facility] Neutrophils, Fluid Lymphocytes,Flu 28 % [facility] id Monocyte/Histo, 66 % [facility] Fluid Other,Fluid 5 % [facility] Fluid Source FLUID [facility] PARACENTESIS FLUID Pathology HEMORRHAGIC FLUID MAIN LAB Interpretation, [...] shane Number MAIN LAB [address] [place] [address] documented in this encounter Visit Diagnoses Diagnosis Other cirrhosis of liver (HCC) - Primar y Other cirrhosis of liver (HCC) documented in this encounter Additional Health Concerns Noted Time Assessment 03/22/2021 8:43 AM HVAC COMMERCIAL SALESPERSON A fall risk assessment has been complet ed for the patient 12/07/2020 3:18 PM CDT PHQ-2 Depression Total Score: 2 documented as of this encounter Care Teams Start Date End Date Director Of Curriculum Relationship Specialty 05/15/20 Garfield Gray MD PCP - [address] [phone] 06/13/20 Riley Hopson MD Consulting Cardiovascul [address] Physician [address] Disease [address] [place], [place] [address] 12/20/20 Gino Pandya, APPLICATION INTERNSHIP-RETURN AGENT Nurse Nurse [address] [address] 01/19/21 Teri Brandon Continuum of Care Case Management documented as of this encounter
--- OUTSIDE RECORDS SUMMARY | 2021-04-14 19:00 | XMS REPORT | Encounter Summary ---
Author Author [facility] Organization [facility] Address Unknown Phone Unavailable Care Team Providers Care Case Aide Name Role Phone Self, Garfield OLVERA PCP Riley Hopson MD [phone] Gino Pandya APRN-ROCK DRILL OPERATOR [phone] Teri Brandon [phone] Unavailable Encounter Details Care Team Description Date Type Department Susan Palomino RN 04/06/2021 Anticoagulation Cardiology: [facility] [address] [place] [address] 1, [address] [place] [address] Social History Date Tobacco Use Types Packs/Day Years Used Never Smoker Smokeless Tobacco: Never Used Comments Alcohol Use Standard Drinks/Week Not Currently 0 (1 standard drink = 0.6 o z pure alcohol) Sex Assigned at Date Recorded Female 06/01/2020 1:44 PM ANALYTICAL CHEMISTRY TEACHER Date Recorded COVID-19 Exposure Response 04/06/2021 12:38 PM ANALYTICAL CHEMISTRY TEACHER In the last month, have you been [...] of this encounter Progress Notes * Susan Palomino, RN - 04/06/2021 5:06 PM ANALYTICAL CHEMISTRY TEACHER Called and spoke to facility and pt. Reviewed plan above. NO further questions a t this time. YTICAL CHEMISTRY TEACHER documented in this encounter Plan of Treatment Care Team Description Date Type Specialty Carlos Longo MD 4000 [facility] [address]E158 [place] [address] Giancarlo Meneses MD 4000 [facility] 2nd [place] [address] Clarissa Harmon Stephanie, RT(R)(),LRT 04/16/2021 Hospital Radiology Encounter documented as of this encounter Goals Goal Patient Associated Recent Progress Patient-Stat Aut hor Goal Type Problems ed? Improve [facility] On track (03/20/2021 Yes Sheldon, 1:41 PM ANALYTICAL CHEMISTRY TEACHER) CHRYSTAL Singh [facility] On track (03/20/2021 Yes Sheldon, 1:41 PM ANALYTICAL CHEMISTRY TEACHER) CHRYSTAL Singh Note: "To get better and stronger." documented as of this encounter Visit Diagnoses Diagnosis Hx of mechanical aortic valve replaceme nt - Primary Heart valve replaced by other means Chronic anticoagulation Long-term (current) use of anticoagulan ts Paroxysmal atrial fibrillation (HCC) Atrial fibrillation documented in this encounter Additional Health Concerns Noted Time Assessment 04/06/2021 12:41 PM ANALYTICAL CHEMISTRY TEACHER A fall risk assessment has been complet ed for the patient 12/07/2020 3:18 PM CDT PHQ-2 Depression Total Score: 2 documented as of this encounter Care Teams Start Date End Date Case Aide Relationship Specialty 05/15/20 Garfield Gray MD PCP - General [address] [place] [address] 06/13/20 Riley Hopson MD Consulting Cardiovascul [address] Physician [address] Disease [address] [place] [address] 12/20/20 Gino Pandya, DEAN OF STUDENTS-ROCK DRILL OPERATOR Nurse Nurse [address] [place] [address] 01/19/21 Teri Brandon Continuum of Care Case Management documented as of this encounter
--- OUTSIDE RECORDS SUMMARY | 2021-04-14 19:00 | XMS REPORT | Encounter Summary ---
Author Author [facility] Organization [facility] Address Unknown Phone Unavailable Care Team Providers Care Rig Supervisor Name Role Phone Self, Garfield OVLERA PCP Riley Hopson MD [phone] Gino Pandya APRN-LOADER ENGINEER [phone] Teri Brandon [phone] Unavailable Reason for Visit * Reason Comments Appointment Request reschedule valve evaluation Encounter Details Care Team Description Date Type Department Christy Soriano RN Appointment Request (reschedule valve ev aluation) 03/22/2021 Documentation Cardiology: [facility] 4000 [facility] [address] [place] [address] Social History Date Tobacco Use Types Packs/Day Years Used Never Smoker Smokeless Tobacco: Never Used Comments Alcohol Use Standard Drinks/Week Not Currently 0 (1 standard drink = 0.6 o z pure alcohol) Sex Assigned at Date Recorded Female 06/01/2020 1:44 PM PBX TEACHER Date Recorded COVID-19 Exposure Response 03/14/2021 2:50 PM PBX TEACHER In the last month, have you [...] as of this encounter Progress Notes * Christy Soriano RN - 03/22/2021 10:04 AM PBX TEACHER Based on current hospitalization all apopintments for Triclip evaluation will be postponed. Have rescheduled Ms. Paulson for echo and office visit with Dr Walker on 04/12/21. Will reschedule remaining testing after this evaluation. TEACHER documented in this encounter Plan of Treatment Care Team Description Date Type Specialty Carlos Longo MD 4000 [facility] [place] [address] Giancarlo Meneses MD 4000 [facility] 2nd [place] [address] Clarissa Harmon Stephanie, RT(R)(),LRT 04/16/2021 Hospital Radiology Encounter documented as of this encounter Goals Goal Patient Associated Recent Progress Patient-Stat Aut hor Goal Type Problems ed? Improve [facility] On track (03/20/2021 Yes Sheldon, 1:41 PM PBX TEACHER) CHRYSTAL Singh Improve [facility] On track (03/20/2021 Yes Sheldon, 1:41 PM PBX TEACHER) CHRYSTAL Singh Note: "To get better and stronger." documented as of this encounter Visit Diagnoses Not on filedocumented in this encounter Additional Health Concerns Noted Time Assessment 03/22/2021 8:43 AM PBX TEACHER A fall risk assessment has been complet ed for the patient 12/07/2020 3:18 PM CDT PHQ-2 Depression Total Score: 2 documented as of this encounter Care Teams Start Date End Date Rig Supervisor Relationship Specialty 05/15/20 Garfield Gray MD PCP - [address] [address] 06/13/20 Riley Hopson MD Consulting Cardiovascul [address] Physician [address] Disease [address] [place] [address] 12/20/20 Gino Pandya, DIRECTOR OF FEDERAL SALES-LOADER ENGINEER Nurse Nurse 4000 [place] [address] 01/19/21 Teri Brandon Continuum of Care Case Management documented as of this encounter
--- OUTSIDE RECORDS SUMMARY | 2021-04-14 19:00 | XMS REPORT | Encounter Summary ---
Author Author [facility] Organization [facility] Address Unknown Phone Unavailable Care Team Providers Care Rn Case Management Name Role Phone Self, Garfield OLVERA PCP Riley Hopson MD [phone] Gino Pandya PATTERN FILER-MARKET RESEARCH MANAGER [phone] Teri Brandon [phone] Unavailable Encounter Details Care Team Description Date Type Department 04/03/2021 Travel Social History Date Tobacco Use Types Packs/Day Years Used Never Smoker Smokeless Tobacco: Never Used Comments Alcohol Use Standard Drinks/Week Not Currently 0 (1 standard drink = 0.6 o z pure alcohol) Sex Assigned at Date Recorded Female 06/01/2020 1:44 PM FORM BUILDING SUPERVISOR Date Recorded COVID-19 Exposure Response 04/03/2021 12:48 PM FORM BUILDING SUPERVISOR In the last month, have you been [...] Type Specialty Carlos Longo MD 4000 [facility] [place] [address] Giancarlo Meneses MD 4000 [facility] 2nd [place] [address] Clarissa Harmon Stephanie, RT(R)(),LRT 04/16/2021 Hospital Radiology Encounter documented as of this encounter Goals Goal Patient Associated Recent Progress Patient-Stat Aut hor Goal Type Problems ed? Improve [facility] On track (03/20/2021 Yes Sheldon, 1:41 PM FORM BUILDING SUPERVISOR) CHRYSTAL Singh [facility] On track (03/20/2021 Yes Sheldon, 1:41 PM FORM BUILDING SUPERVISOR) CHRYSTAL Singh Note: "To get better and stronger." documented as of this encounter Visit Diagnoses Not on filedocumented in this encounter Additional Health Concerns Noted Time Assessment 03/30/2021 2:23 PM FORM BUILDING SUPERVISOR A fall risk assessment has been complet ed for the patient 12/07/2020 3:18 PM CDT PHQ-2 Depression Total Score: 2 documented as of this encounter Care Teams Start Date End Date Rn Case Management Relationship Specialty 05/15/20 Garfield rGay MD PCP - [address] [address] 06/13/20 Riley Hopson MD Consulting Cardiovascul [address] Physician ar Disease [address] [place], [place] [address] 12/20/20 Gino Pandya, PATTERN FILER-MARKET RESEARCH MANAGER Nurse Nurse 4000 [facility] Practitioner Practitioner [facility] , [place] [address] 01/19/21 Teri Brandon Continuum of Care Case Management documented as of this encounter
--- OUTSIDE RECORDS SUMMARY | 2021-04-14 19:00 | XMS REPORT | Encounter Summary ---
Author Author [facility] Organization [facility] Address Unknown Phone Unavailable Care Team Providers Care Forging Engineer Name Role Phone Self, Garfield OLVERA PCP Riley Hopson MD [phone] Gino Pandya ASSEMBLY DETAILER-CHIEF RESERVOIR ENGINEERING [phone] Teri Brandon [phone] Unavailable Reason for Visit * Radiology Services (Routine) - Authorized Diagnoses / Procedures Referred By Contact Referred To Conta ct Specialty Diagnoses Other cirrhosis of liver (HCC) Procedures IR PARACENTESIS DIAGNOSTIC + THERAPEUTIC Allison Marti MD [address] [address] [place] [address] [place] [address] Radiology Referral ID Status Reason Start Date Expiration Visits Vi sits Date Requested Authorized [id number] Authorized 03/28/2021 03/28/2022 1 1 Encounter Details Care Team Description Date Type Department Allison Marti MD 4000 [facility]70 [place] [address] Jeanette Kingston, RT(R)(),LRT Larry Tatum MD 4000 [facility] 2nd [place] [address] Canceled (Patient-Rescheduled) 04/06/2021 Hospital Interventional Radi ology: Encounter Desean ChavezMaritza [facility] [address] [place] [id number] Social History Date Tobacco Use Types Packs/Day Years Used Never Smoker Smokeless Tobacco: Never Used Comments Alcohol Use Standard Drinks/Week Not Currently 0 (1 standard drink = 0.6 o z pure alcohol) Sex Assigned at Date Recorded Female 06/01/2020 1:44 PM FBI PROFILER Date Recorded COVID-19 Exposure Response 04/06/2021 12:38 PM FBI PROFILER In the last month, have you been [...] in this encounter Progress Notes * Agapito Shay RN - 04/06/2021 10:00 AM FBI PROFILER Interventional Radiology Outpatient Scheduling Checklist 1. Name of Procedure(s): Para 2. Date of Procedure: 03/30/21 3. Arrival Time: 1400 4. Procedure Time: 1500 5. Correct Procedural Room Assignment: ICC 2 6. Blood Thinners Triaged and instructed per protocol: Y/N/NA: Yes, coumadin , may continue per protocol. Confirmed accurate instructions sent to patient: Y/N: NA 7. Procedure Order Verified: Y/N: Yes 9. Patient instructed to have a driver sales: Y/N/NA: Yes 10. Patient instructed on NPO status: Y/N/NA: na Confirmed accurate instructions sent to patient: Y/N: Yes 11. Specimen needed: Y/N/NA: Yes Verified Order placed: Y/N: Yes 12. Allergies Verified: Y/N: Yes 13. Is there an Iodine Allergy: Y/N: No Does the Procedure Require contrast: Y/N: na If so, was the IR- Contrast Allergy Pre-Procedure Medication protocol ordered: Y /NA: NA 14. Does the patient have labs according to IR Pre-procedure Laboratory Paramet er policy: Y/N/NA: Na, plt 239 If No, was the patient instructed to [...] an insulin pump or continuous glucose monitor? Y/N If yes, was the patient instructed that this will need to be removed for this p rocedure and to bring supplies to reapply once the procedure is complete? Y/N 19. Patient was sent electronic procedure instructions: Y/N: Yes, mychart. PROFILER documented in this encounter Miscellaneous Notes * Patient Education - Agapito Shay RN - 04/06/2021 10:00 AM FBI PROFILER Dear Khurram, Thank you for choosing [facility] Interventional Rad iology for your procedure. Your appointment information is listed below: Appointment Date: 03/30/21 Appointment Time: 3:00pm Arrival Time: 2:00pm Location: ? [facility]: [address] [place] [address] Parking: available in the front of the building INTERVENTIONAL RADIOLOGY PRE-PROCEDURE INSTRUCTIONS SEDATION You are scheduled for a procedure in Interventional Radiology. Please follow select specialty hospitale instructions and any direction from your Primary Care/Managing Physician. I f you have questions about your procedure or need to reschedule please call [phone]. Medication Instructions: You may take the following [...] your exam depe nding on your procedure. PROFILER documented in this encounter Plan of Treatment Care Team Description Date Type Specialty Carlos Longo MD 4000 [facility] [address] [place] [address] Giancarlo Meneses MD 4000 [facility] [address]nd [place] [address] Clarissa Harmon Stephanie, RT(R)(),LRT 04/16/2021 Hospital Radiology Encounter documented as of this encounter Goals Goal Patient Associated Recent Progress Patient-Stat Aut hor Goal Type Problems ed? [facility] On track (03/20/2021 Yes Sheldon, 1:41 PM FBI PROFILER) CHRYSTAL Singh [facility] On track (03/20/2021 Yes Sheldon, 1:41 PM FBI PROFILER) CHRYSTAL Singh Note: "To get better and stronger." documented as of this encounter Procedures Comments Procedure Name Priority Date/Time Associated Diag nosis IR PARACENTESIS Routine 03/30/2021 Other cirrhosi s of liver DIAGNOSTIC + THERAPEUTIC 3:16 PM FBI PROFILER (HCC) documented in this encounter Results * IR PARACENTESIS DIAGNOSTIC + THERAPEUTIC (03/30/2021 3:16 PM FBI PROFILER) Modality Anatomical Region Laterality X-Ray Angiography Specimen Impressions [facility] RESULTS - 03/30/2021 4:03 PM FBI PROFILER IMPRESSION: Successful ultrasound guided paracentesis with removal of 5 liters of fluid. Ruddy Toribio M.D., the attending radiologist, was present for the procedure, personally reviewed the images, and formulated the interpretations and opinions expressed in this report. @TT Finalized by RUDDY CONNELLY on 03/30/2021 4:03 PM. Dictated by RUDDY CONNELLY on 03/30/2021 4:03 PM. Narrative [facility] RESULTS - 03/30/2021 4:03 PM FBI PROFILER Reason for exam: Paracentesis, ascites. Operators: Ruddy [...] lidocaine was used for local anesthesia. A Bcx-E-Ketzlmqq needle was inserted into the abdomen, with [...] lidocaine was used for local anesthesia. A Ptx-Y-Vjdjgawi needle was inserted into the abdomen, with [...] Concerns Noted Time Assessment 04/06/2021 12:41 PM FBI PROFILER A fall risk assessment has been complet ed for the patient 12/07/2020 3:18 PM CDT PHQ-2 Depression Total Score: 2 documented as of this encounter Care Teams Start Date End Date Forging Engineer Relationship Specialty 05/15/20 Garfield Gray MD PCP - [address] [address] 06/13/20 Riley Hopson MD Consulting Cardiovascul [address] Physician [address] Disease [address] [place], [place] [address] 12/20/20 Gino Pandya, ASSEMBLY DETAILER-CHIEF RESERVOIR ENGINEERING Nurse Nurse [address] [address] 01/19/21 Teri Brandon Continuum of Care Case Management documented as of this encounter
--- OUTSIDE RECORDS SUMMARY | 2021-04-14 19:00 | XMS REPORT | Encounter Summary ---
Author Author [facility] Organization [facility] Address Unknown Phone Unavailable Care Team Providers Care Oven Operator Automatic Name Role Phone Self, Garfield OLVERA PCP Riley Hopson MD [phone] Gino Pandya APRN-GRAPHIC ARTS INSTRUCTOR [phone] Teri Brandon [phone] Unavailable Encounter Details Care Team Description Date Type Department Fernie Camargo LPN 03/27/2021 Telephone Cardiology: [facility] [address] [place] [address] 1, [address] [place] [address] Social History Date Tobacco Use Types Packs/Day Years Used Never Smoker Smokeless Tobacco: Never Used Comments Alcohol Use Standard Drinks/Week Not Currently 0 (1 standard drink = 0.6 o z pure alcohol) Sex Assigned at Date Recorded Female 06/01/2020 1:44 PM VP SOFTWARE Date Recorded COVID-19 Exposure Response 03/14/2021 2:50 PM VP SOFTWARE In the last month, have you been [...] Telephone Encounter - Fernie Camargo LPN - 03/27/2021 12:51 PM VP SOFTWARE Danny with [facility] [place] called reporting an INR of 1.8 and asks i f lovenox is to be continued as pt is telling her it was supposed to be stopped. She also asks about when next paracentesis is to be scheduled. Call back number [phone] SOFTWARE documented in this encounter Plan of Treatment Care Team Description Date Type Specialty Carlos Longo MD 4000 [facility] [place], [place] [id number] Giancarlo Meneses MD 4000 [facility] [address] [place], [place] [id number] Clarissa Harmon Stephanie, RT(R)(),LRT 04/16/2021 Hospital Radiology Encounter documented as of this encounter Goals Goal Patient Associated Recent Progress Patient-Stat Aut hor Goal Type Problems ed? [facility] On track (03/20/2021 Yes Sheldon, 1:41 PM VP SOFTWARE) CHRYSTAL Singh [facility] On track (03/20/2021 Yes Sheldon, 1:41 PM VP SOFTWARE) CHRYSTAL Singh Note: "To get better and stronger." documented as of this encounter Visit Diagnoses Not on filedocumented in this encounter Additional Health Concerns Noted Time Assessment 03/22/2021 8:43 AM VP SOFTWARE A fall risk assessment has been complet ed for the patient 12/07/2020 3:18 PM CDT PHQ-2 Depression Total Score: 2 documented as of this encounter Care Teams Start Date End Date Oven Operator Automatic Relationship Specialty 05/15/20 Garfield Gray MD PCP - [address] [address] 06/13/20 Riley Hopson MD Consulting Cardiovascul [address] Physician ar Disease [address] [place], [place] [address] 12/20/20 Gino Pandya, FURNITURE SERVICER-GRAPHIC ARTS INSTRUCTOR Nurse Nurse [address] [address] 01/19/21 Teir Brandon Continuum of Care Case Management documented as of this encounter
--- OUTSIDE RECORDS SUMMARY | 2021-04-14 19:00 | XMS REPORT | Encounter Summary ---
Author Author [facility] Organization [facility] Address Unknown Phone Unavailable Care Team Providers Care Cable Worker Helper Name Role Phone Self, Garfield OLVERA PCP Riley Hopson MD [phone] Gino Pandya APRN-VETERINARY TECHNICIAN [phone] Teri Brandon [phone] Unavailable Reason for Visit * Reason Onset Date Comments Care Coordination 03/28/2021 Encounter Details Care Team Description Date Type Department Caitlin Sparks Care Coordination 03/28/2021 Telephone Cardiology: [facility] 4000 [facility] 1, [address] [place] [address] Social History Date Tobacco Use Types Packs/Day Years Used Never Smoker Smokeless Tobacco: Never Used Comments Alcohol Use Standard Drinks/Week Not Currently 0 (1 standard drink = 0.6 o z pure alcohol) Sex Assigned at Date Recorded Female 06/01/2020 1:44 PM WIRE LATHER Date Recorded COVID-19 Exposure Response 03/14/2021 2:50 PM WIRE LATHER In the last month, have you been [...] * Telephone Encounter - Caitlin Sparks - 03/28/2021 10:52 AM WIRE LATHER Progress Note REGI Forging Machine Operator Plan: SW to follow-up with patient on "legal matter concerns" as noted in her pa tient message, per request of Gino Pandya VETERINARY TECHNICIAN. Intervention: SW made out bound call to patient to obtain more information upon receiving p atient message in [employer] requesting call back due to legal matters. Patient stated, "I've got everything taken care of now" regarding any previou s legal matter concern. Patient did not elaborate what previous concerns were. Patient shared she is interested in setting up a telehealth or in-person visi t with palliative nurse practitioner, Gino Pandya, and stated, "I'm not avoidi ng him but didn't realize he would still want to see me while I'm here ([facility] santos to [facility])." Patient further shared she is scheduled for a paracentesis on March 30, 2021 in [place], [place]. SW provided updates to care team. No further case management needs addressed at this time. Caitlin Sparks, [facility] Gas Cutter Office: [phone] LATHER documented in this encounter Plan of Treatment Care Team Description Date Type Specialty Carlos Longo MD 4000 [facility] [id number] [place] [address] Giancarlo Meneses MD [address] [place] [address] Clarissa Harmon Stephanie, RT(R)(),LRT 04/16/2021 Hospital Radiology Encounter documented as of this encounter Goals Goal Patient Associated Recent Progress Patient-Stat Aut hor Goal Type Problems ed? [facility] On track (03/20/2021 Yes [place], 1:41 PM WIRE LATHER) CHRYSTAL Singh [facility] On track (03/20/2021 Yes Sheldon, 1:41 PM WIRE LATHER) CHRYSTAL Singh Note: "To get better and stronger." documented as of this encounter Visit Diagnoses Not on filedocumented in this encounter Additional Health Concerns Noted Time Assessment 03/22/2021 8:43 AM WIRE LATHER A fall risk assessment has been complet ed for the patient 12/07/2020 3:18 PM CDT PHQ-2 Depression Total Score: 2 documented as of this encounter Care Teams Start Date End Date Cable Worker Helper Relationship Specialty 05/15/20 Garfield Gray MD PCP - [address] [id number] 06/13/20 Riely Hopson MD Consulting Cardiovascul [address] [place] [address] Physician ar Disease [address] [place], [place] [address] 12/20/20 Gino Pandya, AIRPORT OPERATIONS SUPERVISOR-VETERINARY TECHNICIAN Nurse Nurse [address] [address] 01/19/21 Teri Brandon Continuum of Care Case Management documented as of this encounter
--- OUTSIDE RECORDS SUMMARY | 2021-04-14 19:00 | XMS REPORT | Encounter Summary ---
Author Author [facility] Organization [facility] Address Unknown Phone Unavailable Care Team Providers Care Restaurant Line Cook Name Role Phone Self, Garfield OLVERA PCP Riley Hopson MD [phone] Gino Pandya APRN-MOTHER TESTER [phone] Teri Brandon [phone] Unavailable Reason for Visit * Reason Onset Date Comments Follow-up Phone Call 04/02/2021 Encounter Details Care Team Description Date Type Department Sherin Mata BSN Follow-up Phone Call 04/02/2021 Telephone Cardiology: [facility] [address] [place] [address] 1, [address] [place] [address] Social History Date Tobacco Use Types Packs/Day Years Used Never Smoker Smokeless Tobacco: Never Used Comments Alcohol Use Standard Drinks/Week Not Currently 0 (1 standard drink = 0.6 o z pure alcohol) Sex Assigned at Date Recorded Female 06/01/2020 1:44 PM FOUNDATION DRILL OPERATOR HELPER Date Recorded COVID-19 Exposure Response 03/30/2021 2:13 PM FOUNDATION DRILL OPERATOR HELPER In the last month, have you [...] Telephone Encounter - Sherin Mata BSN - 04/02/2021 1:19 PM FOUNDATION DRILL OPERATOR HELPER Called and spoke to pt about her [employer] message surrounding lab draws. Explain ed that we have continued to monitor and treat INR. There are other providers o rdering different tests and she expressed understanding. Additionally, she irma es any leg spasms like she had last week. She reports she has had lab drawn tod ay and she will be coming to tomorrow for paracentesis. She reports overall feeling pretty good. I explained we have not received INR results yet from chanelle joellen. She verbalized understanding and appreciated the phone call. DATION DRILL OPERATOR HELPER documented in this encounter Plan of Treatment Care Team Description Date Type Specialty Carlos Longo MD 4000 [facility] [id number] [place] [address] Giancarlo Meneses MD 4000 [facility] [address] [place] [address] Clarissa Harmon Stephanie, RT(R)(),LRT 04/16/2021 Hospital Radiology Encounter documented as of this encounter Goals Goal Patient Associated Recent Progress Patient-Stat Aut hor Goal Type Problems ed? Improve [facility] On track (03/20/2021 Yes Sheldon, 1:41 PM FOUNDATION DRILL OPERATOR HELPER) CHRYSTAL Singh [facility] On track (03/20/2021 Yes Sheldon, 1:41 PM FOUNDATION DRILL OPERATOR HELPER) CHRYSTAL Singh Note: "To get better and stronger." documented as of this encounter Visit Diagnoses Not on filedocumented in this encounter Additional Health Concerns Noted Time Assessment 03/30/2021 2:23 PM FOUNDATION DRILL OPERATOR HELPER A fall risk assessment has been complet ed for the patient 12/07/2020 3:18 PM CDT PHQ-2 Depression Total Score: 2 documented as of this encounter Care Teams Start Date End Date Restaurant Line Cook Relationship Specialty 05/15/20 Garfield Gray MD PCP - [address] [phone] 06/13/20 Riley Hopson MD Consulting Cardiovascul [address] Physician ar Disease [address] [place], [place] [address] 12/20/20 Gino Pandya, PRE PRESS PROOFER-MOTHER TESTER Nurse Nurse [address] [address] 01/19/21 Teri Brandon Continuum of Care Case Management documented as of this encounter
--- OUTSIDE RECORDS SUMMARY | 2021-04-14 19:00 | XMS REPORT | Encounter Summary ---
Author Author [facility] Organization [facility] Address Unknown Phone Unavailable Care Team Providers Care Executive Communications Manager Name Role Phone Self, Garfield OLVERA PCP Riley Hopson MD [phone] Gino Pandya APRN-TWYLA [phone] Teri Brandon [phone] Unavailable Reason for Referral * Radiology Services (Routine) - Authorized Diagnoses / Procedures Referred By Contact Referred To Conta ct Specialty Diagnoses Chronic heart failure with preserved ejection fraction (HCC) History of endocarditis Non-ischemic cardiomyopathy (HCC) Other cirrhosis of liver (HCC) Procedures IR PARACENTESIS THERAPEUTIC Nithya Madison APRN-NP [address] [place] [address] [address] [place] [address] [place] [address] Radiology Referral ID Status Reason Start Date Expiration Visits Vi sits Date Requested Authorized [id number] Authorized 03/12/2021 03/12/2022 8 8 NER SPRAYER Reason for Visit * Radiology Services (Routine) - Authorized Diagnoses / Procedures Referred By Contact Referred To Conta ct Specialty Diagnoses Chronic heart failure with preserved ejection fraction (HCC) History of endocarditis Non-ischemic cardiomyopathy (HCC) Other cirrhosis of liver (HCC) Procedures IR PARACENTESIS THERAPEUTIC Nithya Madison APRN-NP [address] [place] [address] [place] [place] [address] [place] [address] Radiology Referral ID Status Reason Start Date Expiration Visits Vi sits Date Requested Authorized [id number] Authorized 03/12/2021 03/12/2022 8 8 Encounter Details Care Team Description Date Type Department Larry Tatum MD [address] [place] [id number] Doe Bell RN Vandervegte, Heather, RT(R)(CV),LRT Chronic heart failure with preserved ejection fraction (HCC) 04/06/2021 Hospital Interventional Radi [facility]logy[facility] [address] [place] [phone] Social History Date Tobacco Use Types Packs/Day Years Used Never Smoker Smokeless Tobacco: Never Used Comments Alcohol Use Standard Drinks/Week Not Currently 0 (1 standard drink = 0.6 o z pure alcohol) Sex Assigned at Date Recorded Female 06/01/2020 1:44 PM THINNER SPRAYER Date Recorded COVID-19 Exposure Response 04/06/2021 12:38 PM THINNER SPRAYER In the last month, have you been in contact with No / Unsure someone who was confirmed or suspected to have Coronavirus / COVID-19? documented as of this encounter Last Filed Vital Signs Reading Time Taken Comments Vital Sign 101/69 04/06/2021 2:55 PM THINNER SPRAYER Blood Pressure - - Pulse 36.7 C (98.1 F) 04/06/2021 12:42 PM THINNER SPRAYER Temperature - - Respiratory Rate 95% 04/06/2021 2:55 PM THINNER SPRAYER Oxygen Saturation - - Inhaled Oxygen Concentration [...] or Self Care documented in this encounter H&P Notes * Latesha Beltrán APRN-LOAN OPERATIONS SPECIALIST - 04/06/2021 12:46 PM THINNER SPRAYER IR Pre-Procedure History and Physical/Sedation Plan Procedure Date: 04/06/2021 Planned Procedure(s): Ultrasound-guided paracentesis Indication: Fluid testing; [...] Acute on chronic diastolic (congestive) heart failure ([facility]) 12/10/2020 RVF (right ventricular failure) ([facility]) 11/30/2020 Hyponatremia 11/30/2020 Acute on chronic heart failure ([facility]) 11/29/2020 Hematoma of left flank 11/15/2020 Hematoma of right flank 11/15/2020 Hematuria 11/15/2020 Nontraumatic rectus hematoma 11/04/2020 Hypoalbuminemia 10/23/2020 LEONORA (acute kidney injury) ([facility]) 10/21/2020 GI bleeding 10/20/2020 Cirrhosis ([facility]) 09/07/2020 Non-ischemic cardiomyopathy ([facility]) 09/07/2020 Paroxysmal atrial fibrillation ([facility]) 09/07/2020 Stage 3b chronic kidney disease ([facility]) 09/07/2020 Atrial tachycardia ([facility]) 09/07/2020 Iron deficiency anemia 08/03/2020 High output congestive heart failure ([facility]) 08/01/2020 Hypotension, unspecified 07/10/2020 Chronic heart failure with preserved ejection fraction ([facility]) 06/07/2020 Anemia 06/07/2020 Severe tricuspid regurgitation 06/07/2020 Hx of mechanical aortic valve replacement 06/07/2020 Chronic anticoagulation 06/07/2020 History of endocarditis 06/07/2020 Medical History: Diagnosis Date Cancer ([facility]) Non- hodgkins lymphoma, chemo Disorder of thyroid gland Hypertension Iron deficiency anemia 08/03/2020 Iron deficiency anemia 08/03/2020 Surgical History: Procedure Laterality Date AORTIC VALVE REPLACEMENT 05/2009 mechanical ESOPHAGOGASTRODUODENOSCOPY WITH BIOPSY - FLEXIBLE N/A 06/06/2020 Performed by Bao Hernández MD at [facility] COLONOSCOPY DIAGNOSTIC WITH SPECIMEN COLLECTION BY BRUSHING/ WASHING - FLEXI BLE N/A 06/06/2020 Performed by Bao Hernández MD at [facility] ANGIOGRAPHY CORONARY ARTERY WITH RIGHT AND LEFT HEART CATHETERIZATION N/A Performed by Higinio Clarke MD at [facility] RADIOLOGIC TECHNOLOGIST MAMMOGRAM POSSIBLE PERCUTANEOUS CORONARY STENT PLACEMENT WITH ANGIOPLASTY N/A Performed by Higinio Clarke MD at [facility] RADIOLOGIC TECHNOLOGIST MAMMOGRAM ESOPHAGOGASTRODUODENOSCOPY WITH SPECIMEN COLLECTION BY BRUSHING/ WASHING N/A 10/21/2020 Performed by Cosmo Gomez MD at [facility]O SIGMOIDOSCOPY WITH CONTROL OF BLEEDING - FLEXIBLE N/A 10/21/2020 Performed by Cosmo Gomez MD at [facility] SIGMOIDOSCOPY WITH DIRECTED SUBMUCOSAL INJECTION - FLEXIBLE 10/21/2020 Performed by Cosmo Gomez MD at [facility]O ESOPHAGOGASTRODUODENOSCOPY WITH CONTROL OF BLEEDING - FLEXIBLE N/A Performed by Bao Hernández MD at [facility] Social History Tobacco Use Smoking [...] 4,000 mg of acetaminophen in 24 hours. 04/06/2021 ascorbic acid (VITAMIN C) 500 mg tablet Take 500 mg by mouth daily. 022 bumetanide (BUMEX) 1 mg tablet Take two tablets by mouth twice daily for 360 days. Will need creatinine/renal function rechecked on 03/25 prior to resuming di uretics. Cardiology (Dr. Carlos Longo) managing. 360 tablet 3 04/06/2021 calcium carbonate (OS-KRUPA) 1250 mg tablet Take 1,250 mg by mouth daily. ciprofloxacin (CIPRO) 500 mg tablet Take one tablet by mouth daily. 30 table t 1 04/06/2021 ferrous gluconate (FERGON) 240 mg (27 mg iron) tablet Take one tablet by devin th daily. (Patient taking differently: Take 240 mg by mouth at bedtime daily.) 9 0 tablet 1 04/05/2021 fluticasone propionate (FLONASE) 50 mcg/actuation nasal spray, suspension Ap ply 1 spray to each nostril as directed daily. Shake bottle gently before using. Unknown hyoscyamine (ANASPAZ) 0.125 mg rapid dissolve tablet Place one tablet under tongue every 4 hours as needed. 180 tablet 0 04/06/2021 lactulose 10 gram/15 mL oral solution Take 30 mL by mouth every 4 hours. Tit rate to have 3-4 bowel movements per day. 04/05/2021 levothyroxine (SYNTHROID) 75 mcg tablet Take 75 mcg by mouth daily 30 minute s before breakfast. 04/06/2021 metoprolol tartrate 25 mg tablet Take one-half tablet by mouth twice daily. 180 tablet 04/06/2021 midodrine (PROAMATINE) 5 mg tablet Take three tablets by mouth three times d aily. 270 tablet 3 04/06/2021 MULTIVITAMIN PO Take 1 tablet by mouth daily. 04/06/2021 ondansetron HCL (ZOFRAN) 4 mg tablet Take one tablet by mouth every 8 hours as needed for Nausea or Vomiting. 30 tablet 0 04/06/2021 oxybutynin chloride (DITROPAN) 5 mg tablet Take one tablet by mouth daily. 1 80 tablet 0 04/06/[address] (PROTONIX) 40 mg tablet Take 40 mg by mouth twice daily. rifAXIMin (XIFAXAN) 550 mg tablet Take one tablet by mouth twice daily. 60 t ablet 11 04/06/2021 sertraline (ZOLOFT) 100 mg tablet Take one tablet by mouth twice daily. 180 tablet 0 04/06/2021 spironolactone (ALDACTONE) 25 mg tablet Take one [...] by mouth daily. 120 table t 0 04/05/2021 No Known Allergies Review of Systems Constitutional: negative Ears, nose, mouth, throat, and face: negative Respiratory: negative Cardiovascular: negative Gastrointestinal: positive for abdominal distension Musculoskeletal:+ right upper leg pain + pelvic pain Neurological: negative Behavioral/Psych: negative Physical Exam: Vital Signs: Last Filed In 24 Hours Vital Signs: 24 Hour Range General appearance: alert and no distress noted. [...] Neck: NA Mouth: NA Anesthesia Classification: NA Status: N/A Lab/Radiology/Other Diagnostic Tests: Labs: Pertinent labs reviewed HOSSEIN Hanna Pager [phone] NER SPRAYER documented in this encounter Procedure Notes * Latesha Beltrán APRN-NP - 04/06/2021 2:16 PM THINNER SPRAYER Immediate Post Procedure Note Date: 04/06/2021 Attending Physician: Dr. Larry Tatum MD Performing Provider: HOSSEIN Hanna Consent: Consent obtained from patient. Time out performed: Consent obtained, correct patient verified, correct procedur e verified, correct site verified, patient marked as necessary. Pre/Post Procedure Diagnosis: Recurrent abdominal ascites Indications: Abdominal ascites Procedure(s): Abdominal ascites Findings: Successful paracentesis with straw colored aspirate without complicat ion. Estimated Blood Loss: None/Negligible Specimen(s) Removed/Disposition: None Complications: None Patient Tolerated Procedure: Well Post-Procedure Condition: stable HOSSEIN Hanna Pager [phone] NER SPRAYER documented in this encounter Miscellaneous Notes * Patient Instructions - Kassandra Harmon RN - 04/06/2021 12:27 PM THINNER SPRAYER Images from the original note were not [...] to the procedu re performed at the [place] Location, call [phone] Friday-Friday from 7 -5p. After-hours and weekends, please call [phone] and ask for the [facility] Hot Metal Mixer Operator on-call. You or your caregiver should call [phone] for any severe symptoms such as excessive bleeding, severe dizziness, trouble breathing or loss of consciousness. NER SPRAYER documented in this encounter Plan of Treatment Care Team Description Date Type Specialty Carlos Longo MD 4000 [facility] [place] [address] Giancarlo Meneses MD [address] [phone] Clarissa Harmon Stephanie, RT(R)(),LRT 04/16/2021 Hospital Radiology Encounter documented as of this encounter Goals Goal Patient Associated Recent Progress Patient-Stat Aut hor Goal Type Problems ed? Improve [facility] On track (03/20/2021 Yes Sheldon, 1:41 PM THINNER SPRAYER) CHRYSTAL Singh [facility] On track (03/20/2021 Yes Sheldon, 1:41 PM THINNER SPRAYER) CHRYSTAL Singh Note: "To get better and stronger." documented as of this encounter Procedures Comments Procedure Name Priority Date/Time Associated Diag nosis IR PARACENTESIS Routine 04/06/2021 Chronic heart failure THERAPEUTIC 2:30 PM THINNER SPRAYER with preserved ejec tion fraction (HCC) History of endocarditis Non-ischemic cardiomyopathy (HCC) Other cirrhosis of liver (HCC) HC CELL COUNT Routine 04/06/2021 Other cirrhosis of liver W/DIFF-FLUIDS 2:05 PM THINNER SPRAYER (HCC) HC PT(INR) Routine 04/06/2021 Chronic heart f ailure 1:03 PM THINNER SPRAYER with preserved ejection fraction (HCC) HC CBC,AUTOMATED Routine 04/06/2021 Pre-procedure lab exam 1:03 PM THINNER SPRAYER Severe tricuspid regurgitation HC COMPREHENSIVE Routine 04/06/2021 Chronic heart failure METABOLIC PANEL 1:03 PM THINNER SPRAYER with preserved ejec tion fraction (HCC) Other cirrhosis of liver (HCC) Encephalopathy documented in this encounter Results * IR PARACENTESIS THERAPEUTIC (04/06/2021 2:30 PM THINNER SPRAYER) Modality Anatomical Region Laterality Ultrasound Specimen Impressions [facility] RESULTS - 04/06/2021 2:52 PM THINNER SPRAYER IMPRESSION: Successful ultrasound guided paracentesis. 3200 mL [...] [facility] RESULTS - 04/06/2021 2:52 PM THINNER SPRAYER Ultrasound-guided therapeutic paracentesis CLINICAL INDICATION: Ascites MEDICATIONS: 10 mL subcutaneous Lidocaine 2% MANAGER CLINICAL: HOSSEIN Callahan ATTENDING: Tae Tatum M.D. TECHNIQUE: [...] was performed. Under ultrasound guidance, a 5 Liberian centesis needle was advanced into the peritoneal [...] Ascites MEDICATIONS: 10 mL subcutaneous Lidocaine 2% MANAGER CLINICAL: HOSSEIN Callahan ATTENDING: Tae Tatum M.D. TECHNIQUE: [...] was performed. Under ultrasound guidance, a 5 Liberian centesis needle was advanced into the peritoneal [...] [facility] RESULTS * CELL COUNT W/DIFF-FLUIDS (04/06/2021 2:05 PM THINNER SPRAYER) White Blood 110 /UL [facility] Cells,Fluid Red Blood 6,600 /UL [facility] Cells,Fluid Segmented 2 % [facility] Neutrophils, Fluid Lymphocytes,Flu 47 % [facility] id Monocyte/Histo, 50 % [facility] Fluid Other,Fluid 1 % [facility] Fluid Source FLUID [facility] PERITONEAL FLUID Pathology NO DIAGNOSTIC ABNORMALITIES [facility] AB Interpretation, Fluid Pathologist INTERPRETED BY OZZY ORTIZ [facility] Signature M.Saige By the PATH SIGNATURE ABOVE, I attest that I have personally formulated the final interpretation expressed in this report and that the above diagnosis is based upon my examination of the slides and/or other material indicated in this report. Specimen Fluid - Peritoneal fluid (substance) Performing Organization Address City/State/ZIP Code P shane Number [facility] [address] [place] [address] * (ABNORMAL) PROTIME INR (PT) (04/06/2021 1:03 PM THINNER SPRAYER) INR 3.1 (H) 0.8 - 1.2 [facility] Specimen Blood Performing Organization Address [facility]ZIP Code P shane Number [facility] [address] [place] [address] * (ABNORMAL) COMPREHENSIVE METABOLIC PANEL (04/06/2021 1:03 PM THINNER SPRAYER) Pathologist [facility] Sodium 134 (L) 137 - 147 MMOL/L [...] equation Specimen Blood (substance) Performing Organization Address [facility] P shane Number [facility] [address] [place] [address] * (ABNORMAL) CBC (04/06/2021 1:03 PM THINNER SPRAYER) Pathologist [facility] White Blood 6.4 4.5 - 11.0 K/UL [...] Number [facility] [address] [place] [address] documented in this encounter Visit Diagnoses Diagnosis Chronic heart failure with preserved ej ection fraction (HCC) History of endocarditis Personal history of other diseases of c irculatory system Non-ischemic cardiomyopathy (HCC) Other primary cardiomyopathies Other cirrhosis of liver (HCC) Pre-procedure lab exam Pre-procedural laboratory examination Severe tricuspid regurgitation Diseases of tricuspid valve Encephalopathy Encephalopathy, unspecified documented in this encounter Administered Medications Action Date Dose Rate Site Medication Order MAR Action 04/06/2021 2:17 PM THINNER SPRAYER 12.5 g albumin 25% injection Given - New INTRA-PROCEDURE MED(CONT), Starting on Bag Fri04/06/21 at 1410, Until Fri04/06/21 at 1417 12.5 g Given - New Bag 04/06/2021 2:10 PM THINNER SPRAYER documented in this encounter Active and Recently Administered Medications Times are shown in THINNER SPRAYER. 04/05/2021 04/06/2021 Medication Order 04/04/2021 1410 (Given - New Bag - Provider: Doe jones RN)1417 (Given - New Bag - Provider: Doe Bell RN) albumin 25% injection (COMPLETED) INTRA-PROCEDURE MED(CONT), Starting on Fri04/06/21 at 1410, Until Fri04/06/21 at 1417 documented in this encounter Additional Health Concerns Noted Time Assessment 04/06/2021 12:41 PM THINNER SPRAYER A fall risk assessment has been complet ed for the patient 12/07/2020 3:18 PM CDT PHQ-2 Depression Total Score: 2 documented as of this encounter Care Teams Start Date End Date Executive Communications Manager Relationship Specialty 05/15/20 Garfield Gray MD PCP - General [address] [place] [address] 06/13/20 Riley Hopson MD Consulting Cardiovascul [address] Physician ar Disease [address] [place] [address] 12/20/20 Gino Pandya, DIRECTOR SALES AND TRADE MARKETING-LOAN OPERATIONS SPECIALIST Nurse Nurse [address] [place] [address] 01/19/21 Teri Brandon Continuum of Care Case Management documented as of this encounter
--- OUTSIDE RECORDS SUMMARY | 2021-04-14 19:00 | XMS REPORT | Encounter Summary ---
Author Author [facility] Organization [facility] Address Unknown Phone Unavailable Care Team Providers Care E Tailer Name Role Phone Self, Garfield OLVERA PCP Riley Hopson MD [phone] Gino Pandya BELL NECK HAMMERER-LABEL PRINTER [phone] Teri Brandon [phone] Unavailable Reason for Visit * Reason Onset Date Comments Scheduling 04/05/2021 Encounter Details Care Team Description Date Type Department Gino Pandya, BELL NECK HAMMERER-LABEL PRINTER 4000 [facility] [id number] [place], [place] [phone] Scheduling 04/05/2021 Telephone Palliative Care: Nicolas[place] in [place], [address], [address] [place] [address] Social History Date Tobacco Use Types Packs/Day Years Used Never Smoker Smokeless Tobacco: Never Used Comments Alcohol Use Standard Drinks/Week Not Currently 0 (1 standard drink = 0.6 o z pure alcohol) Sex Assigned at Date Recorded Female 06/01/2020 1:44 PM NURSE INSTRUCTOR Date Recorded COVID-19 Exposure Response 04/03/2021 12:48 PM NURSE INSTRUCTOR In the last month, have you been [...] * Telephone Encounter - Ruchi Montez - 04/05/2021 10:07 AM NURSE INSTRUCTOR ----- Message from HOSSEIN Chow sent at 04/05/2021 9:48 AM NURSE INSTRUCTOR ----- Regarding: call to schedule appt Can you please call this patient and see if she would like to bet set up for a elehealth visit with me in next 1-2 weeks? I have seen pt in the past and she is aware her providers would like for me to see her again in follow-up. Thanks! Gino E INSTRUCTOR documented in this encounter Plan of Treatment Care Team Description Date Type Specialty Carlos Longo MD 4000 [facility] [address] [place] [address] Giancarlo eMneses MD 4000 [facility] [address] [place] [address] Clarissa Harmon Stephanie, RT(R)(),LRT 04/16/2021 Hospital Radiology Encounter documented as of this encounter Goals Goal Patient Associated Recent Progress Patient-Stat Aut hor Goal Type Problems ed? Improve [facility] On track (03/20/2021 Yes Sheldon, 1:41 PM NURSE INSTRUCTOR) CHRYSTAL Singh [facility] On track (03/20/2021 Yes Sheldon, 1:41 PM NURSE INSTRUCTOR) CHRYSTAL Singh Note: "To get better and stronger." documented as of this encounter Visit Diagnoses Not on filedocumented in this encounter Additional Health Concerns Noted Time Assessment 03/30/2021 2:23 PM NURSE INSTRUCTOR A fall risk assessment has been complet ed for the patient 12/07/2020 3:18 PM CDT PHQ-2 Depression Total Score: 2 documented as of this encounter Care Teams Start Date End Date E Tailer Relationship Specialty 05/15/20 Garfield Gray MD PCP - [address] [address] 06/13/20 Rliey Hopson MD Consulting Cardiovascul [address] Physician [address] Disease [address] [place], [place] [address] 12/20/20 Gino Pandya, BELL NECK HAMMERER-LABEL PRINTER Nurse Nurse [address] [address] 01/19/21 Teri Brandon Continuum of Care Case Management documented as of this encounter
--- OUTSIDE RECORDS SUMMARY | 2021-04-14 19:00 | XMS REPORT | Encounter Summary ---
Author Author [facility] Organization [facility] Address Unknown Phone Unavailable Care Team Providers Care Automation Manager Name Role Phone Self, Garfield OLVERA PCP Riley Hopson MD [phone] Gino Pandya DEPARTMENT SUPERVISOR-PRODUCT EXPERT [phone] Teri Brandon [phone] Unavailable Encounter Details Care Team Description Date Type Department 03/30/2021 Travel Social History Date Tobacco Use Types Packs/Day Years Used Never Smoker Smokeless Tobacco: Never Used Comments Alcohol Use Standard Drinks/Week Not Currently 0 (1 standard drink = 0.6 o z pure alcohol) Sex Assigned at Date Recorded Female 06/01/2020 1:44 PM POLICE ACADEMY PROGRAM COORDINATOR Date Recorded COVID-19 Exposure Response 03/30/2021 2:13 PM POLICE ACADEMY PROGRAM COORDINATOR In the last month, have you [...] Date Type Specialty Carlos Longo MD 4000 [facility] [place] [address] Giancarlo Meneses MD 4000 [facility] [address] [place] [address] Clarissa Harmon Stephanie, RT(R)(),LRT 04/16/2021 Hospital Radiology Encounter documented as of this encounter Goals Goal Patient Associated Recent Progress Patient-Stat Aut hor Goal Type Problems ed? Improve [facility] On track (03/20/2021 Yes [place], 1:41 PM POLICE ACADEMY PROGRAM COORDINATOR) CHRYSTAL Singh Improve [facility] On track (03/20/2021 Yes Sheldon, 1:41 PM POLICE ACADEMY PROGRAM COORDINATOR) CHRYSTAL Singh Note: "To get better and stronger." documented as of this encounter Visit Diagnoses Not on filedocumented in this encounter Additional Health Concerns Noted Time Assessment 03/30/2021 2:23 PM POLICE ACADEMY PROGRAM COORDINATOR A fall risk assessment has been complet ed for the patient 12/07/2020 3:18 PM CDT PHQ-2 Depression Total Score: 2 documented as of this encounter Care Teams Start Date End Date Automation Manager Relationship Specialty 05/15/20 Garfield Gray MD PCP - [address] [address] 06/13/20 Riley Hopson MD Consulting Cardiovascul [address] Physician ar Disease [address] [place], [place] [address] 12/20/20 Gino Pandya, DEPARTMENT SUPERVISOR-PRODUCT EXPERT Nurse Nurse 4000 [facility] Practitioner Practitioner [facility] , [place] [address] 01/19/21 Teri Brandon Continuum of Care Case Management documented as of this encounter
--- OUTSIDE RECORDS SUMMARY | 2021-04-14 19:00 | XMS REPORT | Encounter Summary ---
Author Author [facility] Organization [facility] Address Unknown Phone Unavailable Care Team Providers Care Childcare Center Administrator Name Role Phone Self, Garfield OLVERA PCP Riley Hopson MD [phone] Gino Pandya APRN-ORGAN BUILDER [phone] Teri Brandon [phone] Unavailable Reason for Visit * Reason Onset Date Comments Patient Questions 03/29/2021 Spoke to facility a bout pt current status as well as Lab work for tomorrow Encounter Details Care Team Description Date Type Department Sherin Mata BSN Patient Questions (Spoke to facility abo ut pt current status as well as Lab work for tomorrow) 03/29/2021 Telephone Cardiology: [facility] [address] [facility] [address], [address] [place] [address] Social History Date Tobacco Use Types Packs/Day Years Used Never Smoker Smokeless Tobacco: Never Used Comments Alcohol Use Standard Drinks/Week Not Currently 0 (1 standard drink = 0.6 o z pure alcohol) Sex Assigned at Date Recorded Female 06/01/2020 1:44 PM TRACK VEHICLE REPAIRER Date Recorded COVID-19 Exposure Response 03/14/2021 2:50 PM TRACK VEHICLE REPAIRER In the last month, have you [...] Telephone Encounter - Sherin Mata BSN - 03/29/2021 4:27 PM TRACK VEHICLE REPAIRER Spoke w/RN Kenzie at the Rehab that pt is currently staying at. She reports th at lab results are sent out and can have an extended TAT. She & I agreed, since pt was c/o some lower leg "spasms" and we were going into the weekend we would have her labs drawn tonight so that we can address INR and any electrolyte issues. Kenzie reported that she will pass on info in report to oncoming RN. Additionally, Kenzie reported pt walke apprx 50-65 feet today under her own power with just a walker, she also reported that pt is planning to have transport her to for paracentesis tomorrow(03/30). Communicated updates to pt via [employer] K VEHICLE REPAIRER documented in this encounter Plan of Treatment Care Team Description Date Type Specialty Carlos Longo MD [address] [facility] [id number] [place] [address] Giancarlo Meneses MD [address] [facility] [address] [place] [address] Clarissa Harmon Stephanie, RT(R)(),LRT 04/16/2021 Hospital Radiology Encounter documented as of this encounter Goals Goal Patient Associated Recent Progress Patient-Stat Aut hor Goal Type Problems ed? Improve [facility] On track (03/20/2021 Yes [place]ldon, 1:41 PM TRACK VEHICLE REPAIRER) CHRYSTAL Singh Improve [facility] On track (03/20/2021 Yes [place]ldon, 1:41 PM TRACK VEHICLE REPAIRER) CHRYSTAL Singh Note: "To get better and stronger." documented as of this encounter Visit Diagnoses Not on filedocumented in this encounter Additional Health Concerns Noted Time Assessment 03/22/2021 8:43 AM TRACK VEHICLE REPAIRER A fall risk assessment has been complet ed for the patient 12/07/2020 3:18 PM CDT PHQ-2 Depression Total Score: 2 documented as of this encounter Care Teams Start Date End Date Childcare Center Administrator Relationship Specialty 05/15/20 Garfield Gray MD PCP - [address] [id number] 06/13/20 Riley Hopson MD Consulting Cardiovascul [address] Physician ar Disease [address] [place], [place] [address] 12/20/20 Gino Pandya, PROFESSOR OF THEATER-ORGAN BUILDER Nurse Nurse [address] [place] [address] 01/19/21 Teri Brandon Continuum of Care Case Management documented as of this encounter
--- OUTSIDE RECORDS SUMMARY | 2021-04-14 19:00 | XMS REPORT | Encounter Summary ---
Author Author [facility] Organization [facility] Address Unknown Phone Unavailable Care Team Providers Care Fire Extinguisher Repairer Inspector Name Role Phone Self, Garfield OLVERA PCP Riley Hopson MD [phone] Gino Pandya APRN-CITY CARRIER ASSISTANT [phone] Teri Brandon [phone] Unavailable Reason for Visit * Reason Comments Lab Results Encounter Details Care Team Description Date Type Department Fernie Camargo LPN Lab Results 04/04/2021 Documentation Cardiology: [facility] [address] [facility] [address], [address] [place] [address] Social History Date Tobacco Use Types Packs/Day Years Used Never Smoker Smokeless Tobacco: Never Used Comments Alcohol Use Standard Drinks/Week Not Currently 0 (1 standard drink = 0.6 o z pure alcohol) Sex Assigned at Date Recorded Female 06/01/2020 1:44 PM ROVING DEPARTMENT END FINDER Date Recorded COVID-19 Exposure Response 04/03/2021 12:48 PM ROVING DEPARTMENT END FINDER In the last month, have you been [...] Type Specialty Carlos Longo MD [address] [facility] [id number] [place] [address] Giancarlo Meneses MD [address] [facility] [address]nd [place] [place] [address] Clarissa Harmon Stephanie, RT(R)(),LRT 04/16/2021 Hospital Radiology Encounter documented as of this encounter Goals Goal Patient Associated Recent Progress Patient-Stat Aut hor Goal Type Problems ed? Improve [facility] On track (03/20/2021 Yes [place], 1:41 PM ROVING DEPARTMENT END FINDER) CHRYSTAL Singh Improve [facility] On track (03/20/2021 Yes Sheldon, 1:41 PM ROVING DEPARTMENT END FINDER) CHRYSTAL Singh Note: "To get better and stronger." documented as of this encounter Procedures Comments Procedure Name Priority Date/Time Associated Diag nosis HOME INR Routine 04/02/2021 documented in this encounter Results * HOME INR (04/02/2021) INR Home 1.6 OTHER OUTSIDE LAB Specimen Narrative OTHER OUTSIDE LAB - 04/02/2021 Called in by [facility] [place]. [phone] Performing Organization Address City/State/ZIP Code P sh[place] Number OTHER OUTSIDE LAB documented in this encounter Visit Diagnoses Not on filedocumented in this encounter Additional Health Concerns Noted Time Assessment 03/30/2021 2:23 PM ROVING DEPARTMENT END FINDER A fall risk assessment has been complet ed for the patient 12/07/2020 3:18 PM CDT PHQ-2 Depression Total Score: 2 documented as of this encounter Care Teams Start Date End Date Fire Extinguisher Repairer Inspector Relationship Specialty 05/15/20 Garfield Gray MD PCP - General [address] [place] [address] 06/13/20 Hopson, Nicho, MD Consulting Cardiovascul [address] [place] [address] Physician ar Disease [address] [place] [address] 12/20/20 Gino Pandya, SWEAT BAND SEPARATOR-CITY CARRIER ASSISTANT Nurse Nurse [address] [place] [address] 01/19/21 Teri Brandon Continuum of Care Case Management documented as of this encounter
--- OUTSIDE RECORDS SUMMARY | 2021-04-14 19:01 | XMS REPORT | Encounter Summary ---
Author Author [facility] Organization [facility] Address Unknown Phone Unavailable Care Team Providers Care Level Vial Inside Grinder Name Role Phone Self, Garfield OLVERA PCP Riley Hopson MD [phone] Gino Pandya GOVERNMENT PROPERTY INSPECTOR-CAREER TECHNICAL EDUCATION INSTRUCTOR [phone] Teri Brandon [phone] Unavailable Encounter Details Care Team Description Date Type Department Caitlin Esparza RN 03/19/2021 Orders Only Transplant: Main Ca mpus, [facility] [address] [facility] [address], [address] [place] [address] Social History Date Tobacco Use Types Packs/Day Years Used Never Smoker Smokeless Tobacco: Never Used Comments Alcohol Use Standard Drinks/Week Not Currently 0 (1 standard drink = 0.6 o z pure alcohol) Sex Assigned at Date Recorded Female 06/01/2020 1:44 PM PLANETARIUM TECHNICIAN Date Recorded COVID-19 Exposure Response 03/14/2021 2:50 PM PLANETARIUM TECHNICIAN In the last month, have you been [...] Date End Date Prescription Sig Dispensed Refills 03/19/2021 rifAXIMin (XIFAXAN) 550 Take one 60 tablet 11 mg tablet tablet by mouth twice daily. documented in this encounter Plan of Treatment Care Team Description Date Type Specialty Carlos Longo MD [address] [facility] [id number] [place] [address] Giancarlo Meneses MD [address] [facility] 2nd [place] [address] Clarissa Harmon Stephanie, RT(R)(),LRT 04/16/2021 Hospital Radiology Encounter documented as of this encounter Goals Goal Patient Associated Recent Progress Patient-Stat Aut hor Goal Type Problems ed? Improve [facility] On track (03/20/2021 Yes [place]on, 1:41 PM PLANETARIUM TECHNICIAN) CHRYSTAL Singh Improve [facility] On track (03/20/2021 Yes [place], 1:41 PM PLANETARIUM TECHNICIAN) CHRYSTAL Singh Note: "To get better and stronger." documented as of this encounter Visit Diagnoses Not on filedocumented in this encounter Additional Health Concerns Noted Time Assessment 03/19/2021 10:24 PM PLANETARIUM TECHNICIAN A fall risk assessment has been complet ed for the patient 12/07/2020 3:18 PM CDT PHQ-2 Depression Total Score: 2 documented as of this encounter Care Teams Start Date End Date Level Vial Inside Grinder Relationship Specialty 05/15/20 Garfield Gray MD PCP - [address] [id number] 06/13/20 Riley Hopson MD Consulting Cardiovascul [address] Physician ar Disease [address] [place] [id number] 12/20/20 Gino Pandya, GOVERNMENT PROPERTY INSPECTOR-CAREER TECHNICAL EDUCATION INSTRUCTOR Nurse Nurse [address] [facility] [id number] , [place] [address] 01/19/21 Teri Brandon Continuum of Care Case Management documented as of this encounter
--- OUTSIDE RECORDS SUMMARY | 2021-04-14 19:01 | XMS REPORT | Encounter Summary ---
Author Author [facility] Organization [facility] Address Unknown Phone Unavailable Care Team Providers Care Textile Machinery Sales Representative Name Role Phone Self, Garfield OLVERA PCP Riley Hopson MD [phone] Gino Pandya APRN-TURNTABLE MAN [phone] Teri Brandon [phone] Unavailable Reason for Visit * Radiology Services (Routine) - Authorized Diagnoses / Procedures Referred By Contact Referred To Conta ct Specialty Diagnoses Chronic heart failure with preserved ejection fraction (HCC) History of endocarditis Non-ischemic cardiomyopathy (HCC) Other cirrhosis of liver (HCC) Procedures IR PARACENTESIS THERAPEUTIC Nithya Madison APRN-TURNTABLE MAN [address] [place] [address] [place] [place] [address] [place] [address] Radiology Referral ID Status Reason Start Date Expiration Visits Vi sits Date Requested Authorized [id number] Authorized 03/12/2021 03/12/2022 8 8 Encounter Details Care Team Description Date Type Department Nithya Madison APRN-TURNTABLE MAN [address] [place] [address] No Show 03/19/2021 Hospital Interventional Radi ology: [facility] [address] [place] [address] Social History Date Tobacco Use Types Packs/Day Years Used Never Smoker Smokeless Tobacco: Never Used Comments Alcohol Use Standard Drinks/Week Not Currently 0 (1 standard drink = 0.6 o z pure alcohol) Sex Assigned at Date Recorded Female 06/01/2020 1:44 PM ONLINE PRODUCER Date Recorded COVID-19 Exposure Response 03/14/2021 2:50 PM ONLINE PRODUCER In the last month, have you been [...] Will need creatinine/re nal function rechecked on 12 prior to resuming diuretics. Cardiology (Dr. Carlos Longo) managing. 03/22/2020 VASCEPA 1 gram capsule TAKE 2 0 CAPSULES BY MOUTH TWICE DAILY WITH MEALS 03/22/2021 warfarin (COUMADIN) 1 mg Take three 120 tablet 0 tablet tablets by mouth daily. 03/22/2021 03/22/2021 bumetanide (BUMEX) 1 mg Take two 360 tablet 3 tablet tablets by mouth twice daily for 360 days. Will need creatinine/re nal function rechecked on 1 prior to resuming diuretics. Cardiology (Dr. Carlos Longo) managing. 02/06/2021 03/22/2021 bumetanide (BUMEX) 1 mg Take five 900 tablet 3 tablet tablets by mouth twice daily for 360 days. 02/06/2021 03/22/2021 empagliflozin (JARDIANCE) Take one 90 tablet 3 10 mg tablet tablet by mouth daily. 03/22/2021 03/22/2021 enoxaparin (LOVENOX) 60 Inject 0.6 mL 0 mg syringe under the skin every 12 hours. 03/22/2021 03/28/2021 enoxaparin (LOVENOX) 60 Inject 0.6 mL 0 mg syringe under the skin daily. 03/22/2021 04/12/2021 metoprolol tartrate 25 mg Take one-half 180 tablet 0 tablet tablet by mouth twice daily. 03/22/2021 03/22/2021 spironolactone Take one 540 tablet 3 (ALDACTONE) 25 mg tablet tablet by mouth twice daily. Take with food.To start 03/24/2021. Will need creatinine/re nal function rechecked on 03/25 prior to resuming diuretics. Cardiology (Dr. Carlos Longo) managing. 02/21/2021 03/22/2021 spironolactone Take three 540 tablet 3 (ALDACTONE) 25 mg tablet tablets by mouth twice daily. Take with food. 12/30/2020 03/22/2021 warfarin (COUMADIN) 1 mg Take two 120 tablet 0 tablet tablets by mouth daily. documented as of this encounter Discharge Disposition Code Departure Means Destination Disposition Home Home or Self Care documented in this encounter Progress Notes * Naida Marcelino, RN - 03/19/2021 9:00 AM ONLINE PRODUCER Interventional Radiology Outpatient Scheduling Checklist 1. Name of Procedure(s): Paracentesis 2. Date of Procedure: 03/19/21 3. Arrival Time: 0800 4. Procedure Time: 0900 5. Correct Procedural Room Assignment: [facility] 6. Blood Thinners Triaged and instructed per protocol: Y/N/NA: NA Confirmed accurate instructions sent to patient: Y/N: NA 7. Procedure Order Verified: Y/N: Yes 9. Patient instructed to have a ambulance driver paramedic: Y/N/NA: Yes 10. Patient instructed on NPO status: Y/N/NA: No dietary restrictions Confirmed accurate instructions sent to patient: Y/N: Yes 11. Specimen needed: Y/N/NA: No Verified Order placed: Y/N: Yes 12. Allergies [...] was sent electronic procedure instructions: Y/N: Yes NE PRODUCER documented in this encounter Miscellaneous Notes * Patient Education - Naida Marcelino RN - 03/19/2021 9:00 AM ONLINE PRODUCER Dear Ms. Paulson, Thank you for choosing [facility] Interventional Rad iology for your procedure. Your appointment information is listed below: Appointment Date: 03/19/21 Appointment Time: 9:00am Arrival Time: 8:00am Location: [facility]: [address] [place] [address] Parking: available in the front of the building/ go to the main entrance and the n go to registration. INTERVENTIONAL RADIOLOGY PRE-PROCEDURE INSTRUCTIONS You are scheduled for a procedure in Interventional Radiology with procedural se dation. Please follow these instructions and any direction from your Primary Ca re/Managing Physician. If you have questions about your procedure or need to re schedule please call [phone]. Medication Instructions: Continue your regular medications as directed. You do not need to hold your medi cations. Diet Instructions: No dietary restrictions Day of Exam Instructions: 1. Bathe or shower with an antibacterial soap prior to your appointment. 2. Bring a list of your current medications and the dosages. 3. Wear comfortable clothing and leave valuables at home. 4. Arrive 1 hour prior to your appointment. This time will be spent registering , interviewing, assessing, educating and preparing you for the test. You will be with us anywhere from 30 minutes to 6 hours after your exam depe nding on your procedure. Interventional Radiology Team Perioperative and Procedural Scheduling Department [facility] NE PRODUCER documented in this encounter Plan of Treatment Care Team Description Date Type Specialty Carlos Longo MD [address] [facility] [id number] [place] [address] Giancarlo Meneses MD [address] [facility] [address]nd [place] [address] Clarissa Harmon Stephanie, RT(R)(),LRT 04/16/2021 Hospital Radiology Encounter documented as of this encounter Goals Goal Patient Associated Recent Progress Patient-Stat Aut hor Goal Type Problems ed? Improve [facility] On track (03/20/2021 Yes [place], 1:41 PM ONLINE PRODUCER) CHRYSTAL Singh [facility] On track (03/20/2021 Yes [place], 1:41 PM ONLINE PRODUCER) CHRYSTAL Singh Note: "To get better and stronger." documented as of this encounter Visit Diagnoses Not on filedocumented in this encounter Additional Health Concerns Noted Time Assessment 03/19/2021 10:24 PM ONLINE PRODUCER A fall risk assessment has been complet ed for the patient 12/07/2020 3:18 PM CDT PHQ-2 Depression Total Score: 2 documented as of this encounter Care Teams Start Date End Date Textile Machinery Sales Representative Relationship Specialty 05/15/20 Garfield Gray MD PCP - General [address] [address] 06/13/20 Riley Hopson MD Consulting Cardiovascul [address] Physician ar Disease [address] [place] [address] 12/20/20 Gino Pandya, DIRECTOR INBOUND SALES-TURNTABLE MAN Nurse Nurse [address] [place] [address] Practitioner [id number] , [place] [address] 01/19/21 Teri Brandon Continuum of Care Case Management documented as of this encounter
--- OUTSIDE RECORDS SUMMARY | 2021-04-14 19:01 | XMS REPORT | Encounter Summary ---
Author Author [facility] Organization [facility] Address Unknown Phone Unavailable Care Team Providers Care Consumer Studies Professor Name Role Phone Self, Garfield OLVERA PCP Riley Hopson MD [phone] Gino Pandya PRODUCT MARKETING MANAGER-CHILDREN'S CHOIR DIRECTOR [phone] Teri Brandon [phone] Unavailable Reason for Referral * Radiology Services (Routine) - Authorized Diagnoses / Procedures Referred By Contact Referred To Conta ct Specialty Diagnoses Chronic heart failure with preserved ejection fraction (HCC) RVF (right ventricular failure) (HCC) Other cirrhosis of liver (HCC) Procedures IR PARACENTESIS THERAPEUTIC Carlos Longo MD [address] [address] [address] [place] [address] 1 [place] [address] Radiology Referral ID Status Reason Start Date Expiration Visits Vi sits Date Requested Authorized [id number] Authorized 01/22/2021 01/22/2022 20 20 CULTURAL SALES REPRESENTATIVE Reason for Visit * Radiology Services (Routine) - Authorized Diagnoses / Procedures Referred By Contact Referred To Conta ct Specialty Diagnoses Chronic heart failure with preserved ejection fraction (HCC) RVF (right ventricular failure) (HCC) Other cirrhosis of liver (HCC) Procedures IR PARACENTESIS THERAPEUTIC Carlos Longo MD [address] [place] [address] [facility] [place] [address] [place] [address] Radiology Referral ID Status Reason Start Date Expiration Visits Vi sits Date Requested Authorized [id number] Authorized 01/22/2021 01/22/2022 20 20 Encounter Details Care Team Description Date Type Department Karsten Griffiths MD [facility] [address] [id number] Priya Becker, RT(R)(),LRT Alondra Augustin RN Chronic heart failure with preserved eje ction fraction (HCC) 03/08/2021 Hospital Interventional Radi ology: Encounter Maritza Oviedo [facility] [address] [place] [address] Social History Date Tobacco Use Types Packs/Day Years Used Never Smoker Smokeless Tobacco: Never Used Comments Alcohol Use Standard Drinks/Week Not Currently 0 (1 standard drink = 0.6 o z pure alcohol) Sex Assigned at Date Recorded Female 06/01/2020 1:44 PM AGRICULTURAL SALES REPRESENTATIVE Date Recorded COVID-19 Exposure Response 03/08/2021 7:56 AM AGRICULTURAL SALES REPRESENTATIVE In the last month, have you been in contact with No / Unsure someone who was confirmed or suspected to have Coronavirus / COVID-19? documented as of this encounter Last Filed Vital Signs Reading Time Taken Comments Vital Sign 103/57 03/08/2021 8:58 AM AGRICULTURAL SALES REPRESENTATIVE Blood Pressure - - Pulse 36.9 C (98.4 F) 03/08/2021 8:00 AM AGRICULTURAL SALES REPRESENTATIVE Temperature - - Respiratory Rate 96% 03/08/2021 8:58 AM AGRICULTURAL SALES REPRESENTATIVE Oxygen Saturation - - Inhaled Oxygen Concentration [...] CAPSULES BY MOUTH TWICE DAILY WITH MEALS 02/06/2021 03/22/2021 bumetanide (BUMEX) 1 mg Take five 900 tablet 3 tablet tablets by mouth twice daily for 360 days. 02/06/2021 03/22/2021 empagliflozin (JARDIANCE) Take one 90 tablet 3 10 mg tablet tablet by mouth daily. 02/21/2021 03/22/2021 spironolactone Take three 540 tablet [...] Brigitte Hinojosa RN - 03/08/2021 9:00 AM AGRICULTURAL SALES REPRESENTATIVE Interventional Radiology Outpatient Scheduling Checklist 1. Name of Procedure(s): Paracentesis 2. Date of Procedure: 03/08/21 3. Arrival Time: 0800 4. Procedure Time: 0900 5. Correct Procedural Room Assignment: [facility] 6. Blood Thinners Triaged and instructed per protocol: Y/N/NA: Yes. Pt is t aking Warfarin and was instructed to continue taking per protocol. Confirmed accurate instructions sent to patient: Y/N: NA 7. Procedure Order Verified: Y/N: Yes 9. Patient instructed to have a class b truck driver: Y/N/NA: Yes 10. Patient instructed [...] procedure instructions: Y/N: No; refused mychar t CULTURAL SALES REPRESENTATIVE documented in this encounter H&P Notes * Karsten Griffiths MD - 03/08/2021 7:51 AM AGRICULTURAL SALES REPRESENTATIVE Pre Procedure History and Physical/Sedation Plan-OP Procedure Date: 03/08/2021 Planned Procedure(s): Para Indication: ascites Chief Complaint: above History of Present Illness: Zaria Paulson is a 61 y.o. female. Patient Active Problem List Diagnosis Date Noted Fall 2021 Acute kidney injury superimposed on CKD ([facility]) 01/02/2021 Severe malnutrition ([facility]) 12/27/2020 Severe sepsis ([facility]) 12/22/2020 Acute on chronic diastolic (congestive) heart failure ([facility]) 12/10/2020 RVF (right ventricular failure) ([facility]) 11/30/2020 Hyponatremia 11/30/2020 Acute on chronic heart failure ([facility]) 11/29/2020 Hematoma of left flank 11/15/2020 Hematoma of right flank 11/15/2020 Hematuria 11/15/2020 Nontraumatic rectus hematoma 11/04/2020 Hypoalbuminemia 10/23/2020 LEONORA (acute kidney injury) ([facility]) 10/21/2020 GI bleeding 10/20/2020 Cirrhosis ([facility]) 09/07/2020 Non-ischemic cardiomyopathy (HCC) 09/07/2020 Paroxysmal atrial fibrillation (HCC) 09/07/2020 Stage 3b chronic kidney disease (HCC) 09/07/2020 Atrial tachycardia ([facility] [...] 06/06/2020 Performed by Bao Hernández MD at [facility] ENDO COLONOSCOPY DIAGNOSTIC WITH SPECIMEN COLLECTION BY BRUSHING/ WASHING - FLEXI BLE N/A 06/06/2020 Performed by Bao Hernández MD at [facility] END[facility] ANGIOGRAPHY CORONARY ARTERY WITH RIGHT AND LEFT HEART CATHETERIZATION N/A Performed by Higinio Clarke MD at [facility] POSSIBLE PERCUTANEOUS CORONARY STENT PLACEMENT WITH ANGIOPLASTY N/A Performed by Higinio Clarke MD at [facility] ESOPHAGOGASTRODUODENOSCOPY WITH SPECIMEN COLLECTION BY BRUSHING/ WASHING N/A 10/21/2020 Performed by Cosmo Gomez MD at [facility] END[facility] SIGMOIDOSCOPY WITH CONTROL OF BLEEDING - FLEXIBLE N/A 10/21/2020 Performed by Cosmo Gomez MD at [facility] END[facility] SIGMOIDOSCOPY WITH DIRECTED SUBMUCOSAL INJECTION - FLEXIBLE 10/21/2020 Performed by Cosmo Gomez MD at [facility] ENDO ESOPHAGOGASTRODUODENOSCOPY WITH CONTROL OF BLEEDING - FLEXIBLE N/A Performed by Bao Hernández MD at [facility] Medications Prior to Admission Medication [...] No pertinent labs Karsten Griffiths MD Pager CULTURAL SALES REPRESENTATIVE documented in this encounter Procedure Notes * Karsten Griffiths MD - 03/08/2021 8:19 AM AGRICULTURAL SALES REPRESENTATIVE Immediate Post Procedure Note Date: 03/08/2021 Attending Physician: Sussy Griffiths Motion Study Engineer(s): Priya Procedure(s): para Indications: ascites Findings: above Anesthesia: Local 5 mL 1% lidocaine without epinephrine Sedation/Medication Plan: Other Time out performed: Consent obtained, correct patient verified, correct procedur e verified, correct site verified, patient marked as necessary. Estimated Blood Loss: None/Negligible Specimen(s) Removed/Disposition: None Complications: None Comments: Karsten Griffiths MD CULTURAL SALES REPRESENTATIVE documented in this encounter Miscellaneous Notes * Patient Education - Brigitte Hinojosa RN - 03/08/2021 9:00 AM AGRICULTURAL SALES REPRESENTATIVE Dear Ms. Paulson, Thank you for choosing [facility] Interventional Rad iology for your procedure. Your appointment information is listed below: Appointment Date: 03/08/21 Appointment Time: 9:00 AM Arrival Time: 8:00 AM Location: [facility]: [address] [place] [address] Parking: available in the front of the building INTERVENTIONAL RADIOLOGY PRE-PROCEDURE INSTRUCTIONS LOCAL You are scheduled for a procedure in Interventional Radiology. Please follow th dimirti instructions and any direction from your Primary [...] your care and activities after the procedure. CULTURAL SALES REPRESENTATIVE * Patient Instructions - Kassandra Harmon RN - 03/08/2021 7:45 AM AGRICULTURAL SALES REPRESENTATIVE Images from the original note were not [...] to the procedu re performed at the [place] Location, call [phone] Friday-Friday from 7 -5p. After-hours and weekends, please call [phone] and ask for the [facility] Automotive Paint Technician on-call. You or your caregiver should call 911 for any severe symptoms such as excessive bleeding, severe dizziness, trouble breathing or loss of consciousness. CULTURAL SALES REPRESENTATIVE documented in this encounter Plan of Treatment Care Team Description Date Type Specialty Carlos Longo MD 4000 [facility] AGL455 [place], [place] [phone] Giancarlo Meneses MD 4000 [facility] [address] [place], [place] [phone] Clarissa Harmon Stephanie, RT(R)(),LRT 04/16/2021 Hospital Radiology Encounter documented as of this encounter Goals Goal Patient Associated Recent Progress Patient-Stat Aut hor Goal Type Problems ed? Improve [facility] On track (03/20/2021 Yes [place], 1:41 PM AGRICULTURAL SALES REPRESENTATIVE) CHRYSTAL Singh [facility] On track (03/20/2021 Yes [place]ldon, 1:41 PM AGRICULTURAL SALES REPRESENTATIVE) CHRYSTAL Singh Note: "To get better and stronger." documented as of this encounter Procedures Comments Procedure Name Priority Date/Time Associated Diag nosis IR PARACENTESIS Routine 03/08/2021 Chronic heart failure THERAPEUTIC 8:32 AM AGRICULTURAL SALES REPRESENTATIVE with preserved ejec tion fraction (HCC) RVF (right ventricular failure) (HCC) Other cirrhosis of liver (HCC) documented in this encounter Results * IR PARACENTESIS THERAPEUTIC (03/08/2021 8:32 AM AGRICULTURAL SALES REPRESENTATIVE) Modality Anatomical Region Laterality Ultrasound Specimen Impressions [facility] RESULTS - 03/08/2021 11:35 AM AGRICULTURAL SALES REPRESENTATIVE IMPRESSION: Ultrasound guided paracentesis with removal of 1.9 liters of fluid. Karsten Toribio M.D., the attending radiologist, was present for the procedure, personally reviewed the images, and formulated the interpretations and opinions expressed in this report. @TT Finalized by Karsten Griffiths M.D. on 03/08/2021 11:35 AM. Dictated by Karsten Griffiths M.D. on 03/08/2021 11:35 AM. Narrative [facility] RESULTS - 03/08/2021 11:35 AM AGRICULTURAL SALES REPRESENTATIVE Exam: Ultrasound-guided paracentesis. History: Ascites. Technique: After obtaining informed written consent the patient was placed supine on the procedure table. Using ultrasound guidance, an appropriate insertion site in the right lower quadrant was marked. The patient was prepped and draped in the usual sterile fashion. Lidocaine was used for local anesthesia. A Cwc-D-Qjahuooh needle was inserted into the abdomen, with [...] Lidocaine was used for local anesthesia. A Xzt-U-Qqqorycz needle was inserted into the abdomen, with [...] failure, unspecified Other cirrhosis of liver (HCC) documented in this encounter Administered Medications Action Date Dose Rate Site Medication Order MAR Action 03/08/2021 8:22 AM AGRICULTURAL SALES REPRESENTATIVE 12.5 g albumin 25% injection Given - New INTRA-PROCEDURE MED(CONT), Starting on Bag Toya 03/08/21 at 0822, Until Toya 2 1 at 0822 documented in this encounter Active and Recently Administered Medications Times are shown in AGRICULTURAL SALES REPRESENTATIVE. 03/07/2021 03/08/2021 Medication Order 03/06/2021 0822 (Given [...] Concerns Noted Time Assessment 03/08/2021 8:00 AM AGRICULTURAL SALES REPRESENTATIVE A fall risk assessment has been complet ed for the patient 12/07/2020 3:18 PM CDT PHQ-2 Depression Total Score: 2 documented as of this encounter Care Teams Start Date End Date Consumer Studies Professor Relationship Specialty 05/15/20 Garfield Gray MD PCP - General [address] Medicine [place], [place] [address] 06/13/20 Riley Hopson MD Consulting Cardiovascul [address] Physician ar Disease [address] [place] [address] 12/20/20 Gino Pandya, PRODUCT MARKETING MANAGER-CHILDREN'S CHOIR DIRECTOR Nurse Nurse 4000 [facility] Practitioner Practitioner [facility] , [place] [address] 01/19/21 Teri Brandon Continuum of Care Case Management documented as of this encounter
--- OUTSIDE RECORDS SUMMARY | 2021-04-14 19:01 | XMS REPORT | Encounter Summary ---
Author Author [facility] Organization [facility] Address Unknown Phone Unavailable Care Team Providers Care Refractory Repairer Name Role Phone Self, Garfield OLVERA PCP Riley Hopson MD [phone] Gino Pandya A&P TECHNICIAN-SOIL ENGINEER [phone] Teri Brandon [phone] Unavailable Reason for Visit * Reason Onset Date Comments Appointment Request 03/05/2021 Encounter Details Care Team Description Date Type Department Allison Marti MD 4000 [facility] WA2333 [place], [place] [phone] Appointment Request 03/05/2021 Telephone Transplant: Main Rachael coto, [facility] 4000 [facility] Level 1, [address] [place] [address] Social History Date Tobacco Use Types Packs/Day Years Used Never Smoker Smokeless Tobacco: Never Used Comments Alcohol Use Standard Drinks/Week Not Currently 0 (1 standard drink = 0.6 o z pure alcohol) Sex Assigned at Date Recorded Female 06/01/2020 1:44 PM TOOLROOM CLERK Date Recorded COVID-19 Exposure Response 03/08/2021 7:56 AM TOOLROOM CLERK In the last month, have you [...] - Adriana Gallegos - 03/05/2021 11:50 AM TOOLROOM CLERK Received an Internal new patient referral on this estab pt. Dr Enrrique Longo ref erred to Dr Miller-yet pt is estab with Figueroa/Radha. I will close the referral a n assume she will just need a return appt. ROOM CLERK documented in this encounter Plan of Treatment Care Team Description Date Type Specialty Carlos Longo MD 4000 [facility] [id number] [place] [address] Giancarlo Meneses MD 4000 [facility] [address] [place] [address] Clarissa Harmon Stephanie, RT(R)(),LRT 04/16/2021 Hospital Radiology Encounter documented as of this encounter Goals Goal Patient Associated Recent Progress Patient-Stat Aut hor Goal Type Problems ed? Improve [facility] On track (03/20/2021 Yes Sheldon, 1:41 PM TOOLROOM CLERK) CHRYSTAL Singh [facility] On track (03/20/2021 Yes Sheldon, 1:41 PM TOOLROOM CLERK) CHRYSTAL Singh Note: "To get better and stronger." documented as of this encounter Visit Diagnoses Not on filedocumented in this encounter Additional Health Concerns Noted Time Assessment 03/05/2021 8:16 AM TOOLROOM CLERK A fall risk assessment has been complet ed for the patient 12/07/2020 3:18 PM CDT PHQ-2 Depression Total Score: 2 documented as of this encounter Care Teams Start Date End Date Refractory Repairer Relationship Specialty 05/15/20 Garfield Grya MD PCP - [address] [address] 06/13/20 Riley Hopson MD Consulting Cardiovascul [address] Physician ar Disease [address] [place] [address] 12/20/20 Gino Pandya, A&P TECHNICIAN-SOIL ENGINEER Nurse Nurse [address] [place] [phone] 01/19/21 Teri Brandon Continuum of Care Case Management documented as of this encounter
--- OUTSIDE RECORDS SUMMARY | 2021-04-14 19:01 | XMS REPORT | Encounter Summary ---
Author Author [facility] Organization [facility] Address Unknown Phone Unavailable Care Team Providers Care Paste Mixer Liquid Name Role Phone Self, Garfield OLVERA PCP Riley Hopson MD [phone] Gino Pandya APRN-DOOR BUILDER [phone] Teri Brandon [phone] Unavailable Reason for Visit * Reason Comments Labs Only Encounter Details Care Team Description Date Type Department Shea Barnes Labs Only 03/21/2021 Documentation Cardiology: [facility] [address] [place] [address] 1, [address] [place] [address] Social History Date Tobacco Use Types Packs/Day Years Used Never Smoker Smokeless Tobacco: Never Used Comments Alcohol Use Standard Drinks/Week Not Currently 0 (1 standard drink = 0.6 o z pure alcohol) Sex Assigned at Date Recorded Female 06/01/2020 1:44 PM CRIMINAL ATTORNEY Date Recorded COVID-19 Exposure Response 03/14/2021 2:50 PM CRIMINAL ATTORNEY In the last month, have you been [...] Specialty Carlos Longo MD 4000 [facility] KBJ780 [place] [address] Giancarlo Meneses MD 4000 [facility] [address] [place] [address] Clarissa Harmon Stephanie, RT(R)(),LRT 04/16/2021 Hospital Radiology Encounter documented as of this encounter Goals Goal Patient Associated Recent Progress Patient-Stat Aut hor Goal Type Problems ed? Improve [facility] On track (03/20/2021 Yes [place], 1:41 PM CRIMINAL ATTORNEY) CHRYSTAL Singh Improve [facility] On track (03/20/2021 Yes Sheldon, 1:41 PM CRIMINAL ATTORNEY) CHRYSTAL Singh Note: "To get better and stronger." documented as of this encounter Procedures Comments Procedure Name Priority Date/Time Associated Diag nosis PROTIME INR (PT) Routine 02/27/2021 Paroxysmal at rial fibrillation (HCC) documented in this encounter Results * PROTIME INR (PT) (02/27/2021) INR 1.3 MAIN LAB Specimen Blood - Blood Narrative Performing Organization Address City/State/ZIP Code P shane Number MAIN LAB [address] [place] [address] documented in this encounter Visit Diagnoses Diagnosis Paroxysmal atrial fibrillation (HCC) Atrial fibrillation documented in this encounter Additional Health Concerns Noted Time Assessment 03/21/2021 8:51 AM CRIMINAL ATTORNEY A fall risk assessment has been complet ed for the patient 12/07/2020 3:18 PM CDT PHQ-2 Depression Total Score: 2 documented as of this encounter Care Teams Start Date End Date Paste Mixer Liquid Relationship Specialty 05/15/20 Garfield Gray MD PCP - General [address] [address] 06/13/20 Riley Hopson MD Consulting Cardiovascul [address] Physician ar Disease [address] [place] [address] 12/20/20 Gino Pandya, ACOUSTICAL ENGINEER-DOOR BUILDER Nurse Nurse [address] [address] 01/19/21 Teri Brandon Continuum of Care Case Management documented as of this encounter
--- OUTSIDE RECORDS SUMMARY | 2021-04-14 19:01 | XMS REPORT | Encounter Summary ---
Author Author [facility] Organization [facility] Address Unknown Phone Unavailable Care Team Providers Care In Room Dining Server Name Role Phone Self, Garfield OLVERA PCP Riley Hopson MD [phone] Gino Pandya LAST PICKER-NETWORK TECHNICAL ANALYST [phone] Teri Brandon [phone] Unavailable Reason for Visit * Reason Comments Labs Only pt inr Encounter Details Care Team Description Date Type Department Rufino Springer MA Labs Only (pt inr) 03/12/2021 Documentation Cardiology: [facility] [address] [place] [address] 1, [address] [place] [address] Social History Date Tobacco Use Types Packs/Day Years Used Never Smoker Smokeless Tobacco: Never Used Comments Alcohol Use Standard Drinks/Week Not Currently 0 (1 standard drink = 0.6 o z pure alcohol) Sex Assigned at Date Recorded Female 06/01/2020 1:44 PM ENDOCRINOLOGIST Date Recorded COVID-19 Exposure Response 03/08/2021 7:56 AM ENDOCRINOLOGIST In the last month, have you been [...] Date Type Specialty Carlos Longo MD 4000 [facility] OTS917 [place] [address] Giancarlo Meneses MD 4000 [facility] [address] [place] [address] Clarissa Harmon Stephanie, RT(R)(),LRT 04/16/2021 Hospital Radiology Encounter documented as of this encounter Goals Goal Patient Associated Recent Progress Patient-Stat Aut hor Goal Type Problems ed? Improve [facility] On track (03/20/2021 Yes Sheldon, 1:41 PM ENDOCRINOLOGIST) CHRYSTAL Singh Improve [facility] On track (03/20/2021 Yes Sheldon, 1:41 PM ENDOCRINOLOGIST) CHRYSTAL Singh Note: "To get better and stronger." documented as of this encounter Procedures Comments Procedure Name Priority Date/Time Associated Diag nosis PROTIME INR (PT) Routine 03/26/2021 Paroxysmal at rial fibrillation ([facility]) PROTIME INR (PT) Routine 03/12/2021 Paroxysmal at rial fibrillation (HCC) documented in this encounter Results * (ABNORMAL) PROTIME INR (PT) (03/26/2021) INR 1.8 (H) 0.9 - 1.1 [facility] Protime 20.8 (H) 11.3 - 14.1 [facility] Specimen Blood - Blood Narrative Performing Organization Address City/State/ZIP Code P shane Number [facility] [address] [place] [address] * (ABNORMAL) PROTIME INR (PT) (03/12/2021) INR 2.3 (H) 1.7 - 2 [facility] Specimen Blood - Blood Narrative Performing Organization Address City/State/ZIP Code P shane Number [facility] [address] [place] [address] documented in this encounter Visit Diagnoses Diagnosis Paroxysmal atrial fibrillation (HCC) Atrial fibrillation documented in this encounter Orders First Ordered Date Lab Orders Without Results Count Last Ordere d Date PROTIME INR (PT) 1 03/12/2021 documented in this encounter Additional Health Concerns Noted Time Assessment 03/08/2021 8:00 AM ENDOCRINOLOGIST A fall risk assessment has been complet ed for the patient 12/07/2020 3:18 PM CDT PHQ-2 Depression Total Score: 2 documented as of this encounter Care Teams Start Date End Date In Room Dining Server Relationship Specialty 05/15/20 Garfield Gray MD PCP - [address] [address] 06/13/20 Riley Hopson MD Consulting Cardiovascul [address] [place] [address] Physician ar Disease [address] [place], [place] [address] 12/20/20 Gino Pandya, LAST PICKER-NETWORK TECHNICAL ANALYST Nurse Nurse 4000 [facility] Practitioner Practitioner [facility] [place], [place] [phone] 01/19/21 Teri Brandon Continuum of Care Case Management documented as of this encounter
--- OUTSIDE RECORDS SUMMARY | 2021-04-14 19:01 | XMS REPORT | Encounter Summary ---
Author Author [facility] Organization [facility] Address Unknown Phone Unavailable Care Team Providers Care Geriatric Nurse Name Role Phone Self, Garfield OLVERA PCP Riley Hopson MD [phone] Gino Pandya MEN'S FURNISHINGS SALESPERSON-BRICK POINTER [phone] Teri Brandon [phone] Unavailable Reason for Referral * Radiology Services (Routine) - Authorized Diagnoses / Procedures Referred By Contact Referred To Conta ct Specialty Diagnoses Chronic heart failure with preserved ejection fraction (HCC) RVF (right ventricular failure) (HCC) Other cirrhosis of liver (HCC) Procedures IR PARACENTESIS THERAPEUTIC Carlos Longo MD [address] [address] [address] [place] [address] 1 [place] [address] Radiology Referral ID Status Reason Start Date Expiration Visits Vi sits Date Requested Authorized [id number] Authorized 01/22/2021 01/22/2022 20 20 CTOR OF PRIMARY CARE Reason for Visit * Radiology Services (Routine) - Authorized Diagnoses / Procedures Referred By Contact Referred To Conta ct Specialty Diagnoses Chronic heart failure with preserved ejection fraction (HCC) RVF (right ventricular failure) (HCC) Other cirrhosis of liver (HCC) Procedures IR PARACENTESIS THERAPEUTIC Carlos Longo MD [address] [place] [address] [place] [place] [address] 1 [place] [address] Radiology Referral ID Status Reason Start Date Expiration Visits Vi sits Date Requested Authorized [id number] Authorized 01/22/2021 01/22/2022 20 20 Encounter Details Care Team Description [place] [address], [address] [place] [phone] Jeanette Kingston, RT(R)(),LRT Heena Lundy RN Chronic heart failure with preserved eje ction fraction (HCC) 03/05/2021 Hospital Interventional Radi ology: Encounter Scissors [facility] [address] [place] [id number] Social History Date Tobacco Use Types Packs/Day Years Used Never Smoker Smokeless Tobacco: Never Used Comments Alcohol Use Standard Drinks/Week Not Currently 0 (1 standard drink = 0.6 o z pure alcohol) Sex Assigned at Date Recorded Female 06/01/2020 1:44 PM DIRECTOR OF PRIMARY CARE Date Recorded COVID-19 Exposure Response 03/05/2021 8:08 AM DIRECTOR OF PRIMARY CARE In the last month, have you been in contact with No / Unsure someone who was confirmed or suspected to have Coronavirus / COVID-19? documented as of this encounter Last Filed Vital Signs Reading Time Taken Comments Vital Sign 112/68 03/05/2021 9:57 AM DIRECTOR OF PRIMARY CARE Blood Pressure - - Pulse 36.5 C (97.7 F) 03/05/2021 8:14 AM DIRECTOR OF PRIMARY CARE Temperature - - Respiratory Rate 95% 03/05/2021 9:57 AM DIRECTOR OF PRIMARY CARE Oxygen Saturation - - Inhaled Oxygen Concentration 55.8 kg (123 lb) 03/05/2021 8:14 AM DIRECTOR OF PRIMARY CARE Weight 157.5 cm (5' 2") 03/05/2021 8:14 AM DIRECTOR OF PRIMARY CARE Height 22.5 03/05/2021 8:14 AM DIRECTOR OF PRIMARY CARE Body Mass Index documented in this encounter [...] Willow Sue RN - 03/05/2021 10:04 AM DIRECTOR OF PRIMARY CARE INR; 6.3. RN notified by the lab at this time. CTOR OF PRIMARY CARE documented in this encounter H&P Notes * Ruddy Patel MD - 03/05/2021 8:41 AM DIRECTOR OF PRIMARY CARE Pre Procedure History and Physical/Sedation Plan Procedure [...] CXR: Not obtained Consults: Not obtained Ruddy Patel MD CTOR OF PRIMARY CARE documented in this encounter Miscellaneous Notes * Patient Instructions - Willow Sue RN - 03/05/2021 8:10 AM DIRECTOR OF PRIMARY CARE Images from the original note were not [...] to the procedu re performed at the [place] Location, call [phone] Friday-Friday from 7 -5p. After-hours and weekends, please call [phone] and ask for the [facility] Operations Technical Director on-call. You or your caregiver should call [phone] for any severe symptoms such as excessive bleeding, severe dizziness, trouble breathing or loss of consciousness. CTOR OF PRIMARY CARE documented in this encounter Plan of Treatment Care Team Description Date Type Specialty Carlos oLngo MD 4000 [facility] VTI[address] [place], [place] [phone] Giancarlo Meneses MD [address] [place] [address] Clarissa Harmon Stephanie, RT(R)(),LRT 04/16/2021 Hospital Radiology Encounter documented as of this encounter Goals Goal Patient Associated Recent Progress Patient-Stat Aut hor Goal Type Problems ed? [facility] On track (03/20/2021 Yes [place], 1:41 PM DIRECTOR OF PRIMARY CARE) CHRYSTAL Singh [facility] On track (03/20/2021 Yes [place], 1:41 PM DIRECTOR OF PRIMARY CARE) CHRYSTAL Singh Note: "To get better and stronger." documented as of this encounter Procedures Comments Procedure Name Priority Date/Time Associated Diag nosis IR PARACENTESIS Routine 03/05/2021 Chronic heart failure THERAPEUTIC 9:32 AM DIRECTOR OF PRIMARY CARE with preserved ejec tion fraction (HCC) RVF (right ventricular failure) (HCC) Other cirrhosis of liver (HCC) HC PT(INR) Routine 03/05/2021 Chronic heart f ailure 8:28 AM DIRECTOR OF PRIMARY CARE with preserved ejection fraction (HCC) documented in this encounter Results * IR PARACENTESIS THERAPEUTIC (03/05/2021 9:32 AM DIRECTOR OF PRIMARY CARE) Modality Anatomical Region Laterality Ultrasound Specimen Impressions [facility] RESULTS - 03/05/2021 4:20 PM DIRECTOR OF PRIMARY CARE IMPRESSION: Successful ultrasound guided paracentesis with removal of 3.6 liters of fluid. IRuddy M.D., the attending radiologist, was present for the procedure, personally reviewed the images, and formulated the interpretations and opinions expressed in this report. @TT Finalized by RUDDY PATEL on 03/05/2021 4:20 PM. Dictated by RUDDY PATEL on 03/05/2021 4:19 PM. Narrative [facility] RESULTS - 03/05/2021 4:20 PM DIRECTOR OF PRIMARY CARE Reason for exam: Paracentesis, ascites. Operators: Ruddy Patel M.D. The risks and benefits of procedure were explained the patient beforehand, the patient was allowed to ask any questions at this time. Using ultrasound guidance, an appropriate insertion site in the right lower quadrant was marked. The patient was prepped and draped in the usual sterile fashion. Approximately 5 cc of lidocaine was used for local anesthesia. A Qfc-V-Cmochluk needle was inserted into the abdomen, with return of serous yellow fluid. Approximately 3.6 liters of fluid was removed. The patient tolerated procedure well. The patient was then escorted from the department for continued care. Procedure Note Ruddy Patel MD - 03/05/2021 Reason for exam: Paracentesis, ascites. Operators: Ruddy Patel M.D. The risks and benefits of procedure were explained the patient beforehand, the patient was allowed to ask any questions at this time. Using ultrasound guidance, an appropriate insertion site in the right lower quadrant was marked. The patient was prepped and draped in the usual sterile fashion. Approximately 5 cc of lidocaine was used for local anesthesia. A Jnv-G-Qfmnxelg needle was inserted into the abdomen, with return of serous yellow fluid. Approximately 3.6 liters of fluid was removed. The patient tolerated procedure well. The patient was then escorted from the department for continued care. IMPRESSION IMPRESSION: Successful ultrasound guided paracentesis with removal of 3.6 liters of fluid. IRuddy M.D., the attending radiologist, was present for the procedure, personally reviewed the images, and formulated the interpretations and opinions expressed in this report. @TT Finalized by RUDDY PATEL on 03/05/2021 4:20 PM. Dictated by RUDDY PATEL on 03/05/2021 4:19 PM. Performing Organization Address City/State/ZIP Code P shane Number RAD RESULTS * (ABNORMAL) PROTIME INR (PT) (03/05/2021 8:28 AM DIRECTOR OF PRIMARY CARE) INR 6.3 (HH) 0.8 - 1.2 [facility] Comment: CRITICAL VALUE CALLED TO AND READ BACK BY/TIME/TECH CHRYSTAL SUE at 03/05/2021 12:47:06 by 32 Specimen Blood Performing Organization Address City/State/ZIP Code P shane Number [facility] [address] [place] [address] documented in this encounter Visit Diagnoses Diagnosis Chronic heart failure with preserved ej ection fraction (HCC) RVF (right ventricular failure) (HCC) Congestive heart failure, unspecified Other cirrhosis of liver (HCC) documented in this encounter Administered Medications Action Date Dose Rate Site Medication Order MAR Action 03/05/2021 9:13 AM DIRECTOR OF PRIMARY CARE 12.5 g albumin 25% injection Given - New INTRA-PROCEDURE MED(CONT), Starting on Bag Fri03/05/21 at 0907, Until Fri 1 at 0913 12.5 g Given - New Bag 03/05/2021 9:07 AM DIRECTOR OF PRIMARY CARE documented in this encounter Active and Recently Administered Medications Times are shown in DIRECTOR OF PRIMARY CARE. 03/04/2021 03/05/2021 Medication Order 03/03/2021 0907 (Given - New Bag - Provider: Sanjuana Lundy RN)0913 (Given - New Bag - Provider: Heena Lundy RN) albumin 25% injection (COMPLETED) INTRA-PROCEDURE MED(CONT), Starting on Fri03/05/21 at 0907, Until Fri 1 at 0913 documented in this encounter Additional Health Concerns Noted Time Assessment 03/05/2021 8:16 AM DIRECTOR OF PRIMARY CARE A fall risk assessment has been complet ed for the patient 12/07/2020 3:18 PM CDT PHQ-2 Depression Total Score: 2 documented as of this encounter Care Teams Start Date End Date Geriatric Nurse Relationship Specialty 05/15/20 Garfield Gray MD PCP - [address] [address] 06/13/20 Riley Hopson MD Consulting Cardiovascul [address] [place] [address] Physician ar Disease [address] [place], [place] [address] 12/20/20 Gino Pandya, MEN'S FURNISHINGS SALESPERSON-BRICK POINTER Nurse Nurse [address] [place] [address] 01/19/21 Teri Brandon Continuum of Care Case Management documented as of this encounter
--- OUTSIDE RECORDS SUMMARY | 2021-04-14 19:01 | XMS REPORT | Encounter Summary ---
Author Author [facility] Organization [facility] Address Unknown Phone Unavailable Care Team Providers Care Purchasing Specialist Name Role Phone Self, Garfield OLVERA PCP Riley Hopson MD [phone] Gino Pandya TEAMCENTER SOLUTION ARCHITECT-WELDER APPRENTICE GAS [phone] Trei Brandon [phone] Unavailable Encounter Details Care Team Description Date Type Department Kian Walker 03/19/2021 Documentation [address] [address] Social History Date Tobacco Use Types Packs/Day Years Used Never Smoker Smokeless Tobacco: Never Used Comments Alcohol Use Standard Drinks/Week Not Currently 0 (1 standard drink = 0.6 o z pure alcohol) Sex Assigned at Date Recorded Female 06/01/2020 1:44 PM RESIDENTIAL ASSISTANT Date Recorded COVID-19 Exposure Response 03/14/2021 2:50 PM RESIDENTIAL ASSISTANT In the last month, have you [...] as of this encounter Progress Notes * Kian Walker - 03/19/2021 11:17 AM RESIDENTIAL ASSISTANT The Prior Authorization for Xifaxan has been submitted for Zaria Paulson via Cover My Meds. Will continue to follow. Jodiebalwinder [facility] Patient Advocate [phone] DENTIAL ASSISTANT documented in this encounter Plan of Treatment Care Team Description Date Type Specialty Carlos Longo MD 4000 [facility] [address] [place] [address] Giancarlo Meneses MD 4000 [facility] [address] [place] [address] Clarissa Harmon Stephanie, RT(R)(),LRT 04/16/2021 Hospital Radiology Encounter documented as of this encounter Goals Goal Patient Associated Recent Progress Patient-Stat Aut hor Goal Type Problems ed? [facility] On track (03/20/2021 Yes [place], 1:41 PM RESIDENTIAL ASSISTANT) CHRYSTAL Singh [facility] On track (03/20/2021 Yes [place], 1:41 PM RESIDENTIAL ASSISTANT) CHRYSTAL Singh Note: "To get better and stronger." documented as of this encounter Visit Diagnoses Not on filedocumented in this encounter Additional Health Concerns Noted Time Assessment 03/19/2021 10:24 PM RESIDENTIAL ASSISTANT A fall risk assessment has been complet ed for the patient 12/07/2020 3:18 PM CDT PHQ-2 Depression Total Score: 2 documented as of this encounter Care Teams Start Date End Date Purchasing Specialist Relationship Specialty 05/15/20 Garfield Gray MD PCP - General [address] [address] 06/13/20 Riley Hopson MD Consulting Cardiovascul [address] Physician ar Disease [address] [place] [id number] 12/20/20 Gino Pandya, TEAMCENTER SOLUTION ARCHITECT-WELDER APPRENTICE GAS Nurse Nurse 4000 [facility] Practitioner Practitioner [facility] , [place] [address] 01/19/21 Teri Brandon Continuum of Care Case Management documented as of this encounter
--- OUTSIDE RECORDS SUMMARY | 2021-04-14 19:01 | XMS REPORT | Encounter Summary ---
Author Author [facility] Organization [facility] Address Unknown Phone Unavailable Care Team Providers Care Laborer [place]aft [place] Name Role Phone Self, Garfield OLVERA PCP Riley Hopson MD [phone] Gino Pandya SURVEY PARTY CHIEF-PRODUCT EVANGELIST [phone] Teri Brandon [phone] Unavailable Encounter Details Care Team Description Date Type Department 03/14/2021 Hospital Imaging: [facility] [address], [address] [place] [address] Social History Date Tobacco Use Types Packs/Day Years Used Never Smoker Smokeless Tobacco: Never Used Comments Alcohol Use Standard Drinks/Week Not Currently 0 (1 standard drink = 0.6 o z pure alcohol) Sex Assigned at Date Recorded Female 06/01/2020 1:44 PM CUT FILE CLERK Date Recorded COVID-19 Exposure Response 03/08/2021 7:56 AM CUT FILE CLERK In the last month, have you [...] Specialty Carlos Longo MD 4000 [facility] [place] [address] Giancarlo Meneses MD [address] [phone] Clarissa Harmon Stephanie, RT(R)(),LRT 04/16/2021 Hospital Radiology Encounter documented as of this encounter Goals Goal Patient Associated Recent Progress Patient-Stat Aut hor Goal Type Problems ed? Improve [facility] On track (03/20/2021 Yes [place], 1:41 PM CUT FILE CLERK) CHRYSTAL Singh [facility] On track (03/20/2021 Yes Sheldon, 1:41 PM CUT FILE CLERK) CHRYSTAL Singh Note: "To get better and stronger." documented as of this encounter Procedures Comments Procedure Name Priority Date/Time Associated Diag nosis CT HEAD EXTERNAL IMAGING Routine 03/14/2021 12:00 AM CUT FILE CLERK documented in this encounter Results * CT HEAD EXTERNAL IMAGING (03/14/2021 12:00 AM CUT FILE CLERK) Modality Anatomical Region Laterality Computed Radiography Specimen Narrative Scheduling, Silent - 04/11/2021 2:12 PM CUT FILE CLERK This order has been auto finalized and does not contain a result. documented in this encounter Visit Diagnoses Not on filedocumented in this encounter Additional Health Concerns Noted Time Assessment 03/14/2021 11:45 PM CUT FILE CLERK A fall risk assessment has been complet ed for the patient 12/07/2020 3:18 PM CDT PHQ-2 Depression Total Score: 2 documented as of this encounter Care Teams Start Date End Date Laborer [place] Relationship Specialty 05/15/20 Garfield Gray MD PCP - General [address] [address] 06/13/20 Riley Hopson MD Consulting Cardiovascul [address] Physician ar Disease [address] [place] [address] 12/20/20 Gino Pandya, SURVEY PARTY CHIEF-PRODUCT EVANGELIST Nurse Nurse 4000 [facility] Practitioner Practitioner [facility] , [place] [address] 01/19/21 Teri Brandon Continuum of Care Case Management documented as of this encounter
--- OUTSIDE RECORDS SUMMARY | 2021-04-14 19:01 | XMS REPORT | Encounter Summary ---
Author Author [facility] Organization [facility] Address Unknown Phone Unavailable Care Team Providers Care Rolling Mill Plugger Name Role Phone Self, Garfield OLVERA PCP Riley Hopson MD [phone] Gino Pandya APRN-SECRETARY RECEPTIONIST [phone] Teri Brandon [phone] Unavailable Reason for Referral * Radiology Services (Routine) - Authorized Diagnoses / Procedures Referred By Contact Referred To Conta ct Specialty Diagnoses Chronic heart failure with preserved ejection fraction (HCC) History of endocarditis Non-ischemic cardiomyopathy (HCC) Other cirrhosis of liver (HCC) Procedures IR PARACENTESIS THERAPEUTIC Nithya Madison APRN-SECRETARY RECEPTIONIST [address] [place] [address] [address] [place] [address] Radiology Referral ID Status Reason Start Date Expiration Visits Vi sits Date Requested Authorized [id number] Authorized 03/12/2021 03/12/2022 8 8 ING MACHINE OPERATOR AUTOMATIC Encounter Details Care Team Description Date Type Department Sherin Mata BSN Chronic heart failure with preserved eje ction fraction (HCC) (Primary Dx); History of endocarditis; Non-ischemic cardiomyopathy (HCC); Other cirrhosis of liver (HCC) 03/12/2021 Orders Only Cardiology: [facility] [address] [place] [address] Social History Date Tobacco Use Types Packs/Day Years Used Never Smoker Smokeless Tobacco: Never Used Comments Alcohol Use Standard Drinks/Week Not Currently 0 (1 standard drink = 0.6 o z pure alcohol) Sex Assigned at Date Recorded Female 06/01/2020 1:44 PM BRAZING MACHINE OPERATOR AUTOMATIC Date Recorded COVID-19 Exposure Response 03/08/2021 7:56 AM BRAZING MACHINE OPERATOR AUTOMATIC In the last month, have you been [...] Date Type Specialty Carlos Longo MD 4000 [facility] [address] [place] [address] Giancarlo Meneses MD 4000 [facility] [address] [place] [address] Clarissa Harmon Stephanie, RT(R)(),LRT 04/16/2021 [facility] Radiology Encounter Order Schedule Name Type Priority Associated Diag noses Twice a Week Auto for 8 Occurrences star ting 03/12/2021 until 03/12/2022, 2 completed IR PARACENTESIS Imaging Routine Chronic heart failure THERAPEUTIC with preserved ejection fraction (HCC) History of endocarditis Non-ischemic cardiomyopathy (HCC) Other cirrhosis of liver (HCC) documented as of this encounter Goals Goal Patient Associated Recent Progress Patient-Stat Aut hor Goal Type Problems ed? [facility] On track (03/20/2021 Yes Sheldon, 1:41 PM BRAZING MACHINE OPERATOR AUTOMATIC) CHRYSTAL Singh [facility] On track (03/20/2021 Yes Sheldon, 1:41 PM BRAZING MACHINE OPERATOR AUTOMATIC) CHRYSTAL Singh Note: "To get better and stronger." documented as of this encounter Results * IR PARACENTESIS THERAPEUTIC (04/06/2021 2:30 PM BRAZING MACHINE OPERATOR AUTOMATIC) Modality Anatomical Region Laterality Ultrasound Specimen Impressions [facility] RESULTS - 04/06/2021 2:52 PM BRAZING MACHINE OPERATOR AUTOMATIC IMPRESSION: Successful ultrasound guided paracentesis. 3200 mL [...] [facility] RESULTS - 04/06/2021 2:52 PM BRAZING MACHINE OPERATOR AUTOMATIC Ultrasound-guided therapeutic paracentesis CLINICAL INDICATION: Ascites MEDICATIONS: 10 mL subcutaneous Lidocaine 2% BOBBIN WINDER TENDER: HOSSEIN [place] ATTENDING: Tae Tatum M.D. TECHNIQUE: ILarry M.D, the attending radiologist, was present for [...] was performed. Under ultrasound guidance, a 5 Setswana centesis needle was advanced into the peritoneal [...] Ascites MEDICATIONS: 10 mL subcutaneous Lidocaine 2% BOBBIN WINDER TENDER: HOSSEIN Callahan ATTENDING: Tae Tatum M.D. TECHNIQUE: [...] was performed. Under ultrasound guidance, a 5 Setswana centesis needle was advanced into the peritoneal [...] [facility] RESULTS * IR PARACENTESIS THERAPEUTIC (04/03/2021 2:14 PM BRAZING MACHINE OPERATOR AUTOMATIC) Modality Anatomical Region Laterality X-Ray Angiography Specimen Impressions [facility] RESULTS - 04/03/2021 2:24 PM BRAZING MACHINE OPERATOR AUTOMATIC IMPRESSION: Ultrasound guided paracentesis with removal of 2.8 liters of fluid. Karsten Toribio M.D., the attending radiologist, was present for the procedure, personally reviewed the images, and formulated the interpretations and opinions expressed in this report. @TT Finalized by Karsten Griffiths M.D. on 04/03/2021 2:24 PM. Dictated by Karsten Griffiths M.D. on 04/03/2021 2:24 PM. Narrative [facility] RESULTS - 04/03/2021 2:24 PM BRAZING MACHINE OPERATOR AUTOMATIC Exam: Ultrasound-guided paracentesis. History: Ascites. Technique: After obtaining informed written consent the patient was placed supine on the procedure table. Using ultrasound guidance, an appropriate insertion site in the right lower quadrant was marked. The patient was prepped and draped in the usual sterile fashion. Lidocaine was used for local anesthesia. A Fch-F-Utxndaho needle was inserted into the abdomen, with [...] Lidocaine was used for local anesthesia. A Nyc-Z-Whjbppfr needle was inserted into the abdomen, with return of clear yellow fluid. Fluid was removed, the total amount as listed below. The needle was removed. Hemostasis was achieved using manual compression. The patient tolerated procedure well, and left the department in good condition. IMPRESSION IMPRESSION: Ultrasound guided paracentesis with removal of 2.8 liters of fluid. IKarsten M.D., the attending [...] preserved ej ection fraction (HCC) - Primary History of endocarditis Personal history of other diseases of c irculatory system Non-ischemic cardiomyopathy (HCC) Other primary cardiomyopathies Other cirrhosis of liver (HCC) Chronic heart failure with preserved ej ection fraction (HCC) History of endocarditis Personal history of other diseases of c irculatory system Non-ischemic cardiomyopathy (HCC) Other primary cardiomyopathies Other cirrhosis of liver (HCC) Chronic heart failure with preserved ej ection fraction (HCC) History of endocarditis Personal history of other diseases of c irculatory system Non-ischemic cardiomyopathy (HCC) Other primary cardiomyopathies Other cirrhosis of liver (HCC) Pre-procedure lab exam Pre-procedural laboratory examination Severe tricuspid regurgitation Diseases of tricuspid valve Encephalopathy Encephalopathy, unspecified documented in this encounter Additional Health Concerns Noted Time Assessment 03/08/2021 8:00 AM BRAZING MACHINE OPERATOR AUTOMATIC A fall risk assessment has been complet ed for the patient 12/07/2020 3:18 PM CDT PHQ-2 Depression Total Score: 2 documented as of this encounter Care Teams Start Date End Date Rolling Mill Plugger Relationship Specialty 05/15/20 Garfield Gray MD PCP - [address] [phone] 06/13/20 Riley Hopson MD Consulting Cardiovascul [address] [place] [address] Physician ar Disease [address] [place], [place] [address] 12/20/20 Gino Pandya APRN-SECRETARY RECEPTIONIST Nurse Nurse [address] [phone] 01/19/21 Teri Brandon Continuum of Care Case Management documented as of this encounter
--- OUTSIDE RECORDS SUMMARY | 2021-04-14 19:01 | XMS REPORT | Encounter Summary ---
Author Author [facility] Organization [facility] Address Unknown Phone Unavailable Care Team Providers Care Pen Tender Name Role Phone Self, Garfield OLVERA PCP Riley Hopson MD [phone] Gino Pandya [employer] [facility] [employer] [phone] Teri Brandon [phone] Unavailable Reason for Visit * Auth/Cert Diagnoses / Procedures Referred By Contact Referred To Conta ct Specialty Diagnoses Encephalopathy AMS Referral ID Status Reason Start Date Expiration Visits Vi sits Date Requested Authorized [id number] 1 1 Encounter Details Care Team Description Date Type Department Mag Rodriguez, DO [address] [place] [address] 03/18/2021 Hospital Vascular Access [place] m: Encounter [facility] [place] [address] [facility] [address], [address] [place] [address] Social History Date Tobacco Use Types Packs/Day Years Used Never Smoker Smokeless Tobacco: Never Used Comments Alcohol Use Standard Drinks/Week Not Currently 0 (1 standard drink = 0.6 o z pure alcohol) Sex Assigned at Date Recorded Female 06/01/2020 1:44 PM ORAL SURGEON Date Recorded COVID-19 Exposure Response 03/14/2021 2:50 PM ORAL SURGEON In the last month, have you been [...] documented in this encounter Progress Notes * Diogenes Hinojosa - 03/18/2021 12:15 PM ORAL SURGEON Vascular Access Team consulted to obtain lab specimen. Ultrasound Used: Yes How Many Attempts: 1 Location of Unsuccessful Attempts: na At 1224 approximately 8 ml of blood obtained from Right Upper arm . Patient lola erated the procedure well. Specimen labeled and sent to lab. SURGEON documented in this encounter Plan of Treatment Care Team Description Date Type Specialty Carlos Longo MD [address] [facility] [place] [address] Giancarlo Meneses MD [address] [facility] [address] [place] [address] Clarissa Harmon Stephanie, RT(R)(),LRT 04/16/2021 Hospital Radiology Encounter documented as of this encounter Goals Goal Patient Associated Recent Progress Patient-Stat Aut hor Goal Type Problems ed? Improve [facility] On track (03/20/2021 Yes Sheldon, 1:41 PM ORAL SURGEON) CHRYSTAL Singh Improve [facility] On track (03/20/2021 Yes Sheldon, 1:41 PM ORAL SURGEON) CHRYSTAL Singh Note: "To get better and stronger." documented as of this encounter Procedures Comments Procedure Name Priority Date/Time Associated Diag nosis CONSULT VASCULAR ACCESS Routine 03/18/2021 TEAM 11:57 AM ORAL SURGEON documented in this encounter Visit Diagnoses Not on filedocumented in this encounter Orders First Ordered Date Procedures Count Last Ordered Date CONSULT VASCULAR ACCESS TEAM 1 documented in this encounter Additional Health Concerns Noted Time Assessment 03/18/2021 9:00 AM ORAL SURGEON A fall risk assessment has been complet ed for the patient 12/07/2020 3:18 PM CDT PHQ-2 Depression Total Score: 2 documented as of this encounter Care Teams Start Date End Date Pen Tender Relationship Specialty 05/15/20 Garfield Gray MD PCP - [address] [address] 06/13/20 Riley Hopson MD Consulting Cardiovascul [address] Physician ar Disease [address] [place], [place] [id number] 12/20/20 Gino Pandya, [employer] [facility] [employer] Nurse Nurse [address] [place] [id number] 01/19/21 Teri Brandon Continuum of Care Case Management documented as of this encounter
--- OUTSIDE RECORDS SUMMARY | 2021-04-14 19:01 | XMS REPORT | Encounter Summary ---
Author Author [facility] Organization [facility] Address Unknown Phone Unavailable Care Team Providers Care Local Owner Operator Truck Driver Name Role Phone Self, Dulce Maria OLVERA PCP Riley Hopson MD [phone] Gino Pandya REHAB SPECIALIST-HAIR DRESSER [phone] Teri Brandon [phone] Unavailable Reason for Referral * Consult, Test & Treat (Discharge Pending) - New Request Diagnoses / Procedures Referred By Contact Referred To [facility] Special[facility] Procedures APPOINTMENT REQUEST: [facility] Mag Rodriguez DO [address] [place] [address] Referral ID Status Reason Start Date Expiration Visits Vi sits Date Requested Authorized [id number] New Request 03/22/2021 03/22/2022 1 1 DING CLERK Reason for Visit * Auth/Cert Diagnoses / Procedures Referred By Contact Referred To [facility] Specialty Diagnoses Encephalopathy AMS Referral ID Status Reason Start Date Expiration Visits Vi sits Date Requested Authorized [id number] 1 1 Encounter Details Care Team Description Date Type Department Alfredo Chou MD [address] [place] [address] Dimitri Alvarez DO [address] [place] [address] Maury Rushing MD [address] [place] [address] Mag Rodriguez DO [address] [place] [address] [facility] 03/14/2021 Hospital Patient Care Unit B H15: - Encounter Main [place], Main 03/22/2021 Hospital [address] [facility] [address] [place] [id number] Social History Date Tobacco Use Types Packs/Day Years Used Never Smoker Smokeless Tobacco: Never Used Comments Alcohol Use Standard Drinks/Week Not Currently 0 (1 standard drink = 0.6 o z pure alcohol) Sex Assigned at Date Recorded Female 06/01/2020 1:44 PM ENCODING CLERK Date Recorded COVID-19 Exposure Response 03/14/2021 2:50 PM ENCODING CLERK In the last month, have you been in contact with No / Unsure someone who was confirmed or suspected to have Coronavirus / COVID-19? documented as of this encounter Last Filed Vital Signs Reading Time Taken Comments Vital Sign 102/69 03/22/2021 11:10 AM ENCODING CLERK Blood Pressure 84 03/22/2021 11:10 AM ENCODING CLERK Pulse 36.7 C (98 F) 03/22/2021 11:10 AM ENCODING CLERK Temperature - - Respiratory Rate 100% 03/22/2021 11:10 AM ENCODING CLERK Oxygen Saturation - - Inhaled Oxygen Concentration 54.8 kg (120 lb 13 oz) 03/14/2021 8:14 PM ENCODING CLERK Weight 157.5 cm (5' 2.01") 03/14/2021 8:14 PM ENCODING CLERK reported Height 22.09 03/14/2021 8:14 PM ENCODING CLERK Body Mass Index documented in this encounter [...] as of this encounter Discharge Summaries * Mag Rodriguez DO - 03/22/2021 1:41 PM ENCODING CLERK Discharge Summary Name: Zaria Paulson Date Of : 1960 Age: 61 years Admit date: 03/14/2021 Discharge date: 03/22/2021 Discharge Attending: Mag Rodriguez DO Discharge Summary Completed By: Mag Rodriguez DO Service: [facility] [id number] Reason for hospitalization: Encephalopathy [G93.40] Primary Discharge Diagnosis: Same as Above Hospital Diagnoses: Hospital Problems Active Problems * (Principal) Encephalopathy Chronic anticoagulation Cirrhosis (HCC) Acute kidney injury superimposed on CKD (HCC) Significant Past Medical History Cancer (HCC) Comment: Non- hodgkins lymphoma, chemo Disorder of thyroid gland Hypertension Iron deficiency anemia Iron deficiency anemia Allergies Patient has no known allergies. Brief Hospital Course The patient was admitted and the following issues were addressed during this hos pitalization: (with pertinent details including admission exam/imaging/labs). Zaria Paulson is a 61yo F with a PMHx of NICM, HFpEF, paroxysmal atrial fibrilla tion, mechanical aortic valve, cirrhosis of unclear etiology, CKD with recent fa ll who presents with Altered mental status. Acute encephalopathy/Hepatic encephalopathy - improving/nearly resolved Decompensated Liver Cirrhosis - Likely etiology from hepatic encephalopathy +- UTI -CT head and chest x ray unremarkable per outside records -UA show few bacteria and packed white blood cells. MELD-Na score: 21 at 03/21/2021 5:49 AM MELD score: 16 at 03/21/2021 5:49 AM Calculated from: Serum Creatinine: 1.56 MG/DL at 03/21/2021 5:49 AM Serum Sodium: 131 MMOL/L at 03/21/2021 5:49 AM Total Bilirubin: 0.5 MG/DL (Using min of 1 MG/DL) at 03/21/2021 5:49 AM INR(ratio): 1.6 at 03/21/2021 5:49 AM Age: 61 years - Paracentesis - negative for SBP - blood cultures ngtd >Avoid sedating agents like benzos and opioids if possible > continue on lactulose, continue, titrate to 3-4 BMs/day - stressed importance to patient, son and patient's SO on discharge need for frequent BMs and monitoring >consulted hepatology, appreciate recommendations rifaxmin twice daily started this admission >continue DIE CAST ENGINEER midodrine > hold further diuretics with rise in Cr.- has been stable for last few days - s/p paracentesis on 03/22 - anticipate that it will be 7-10 days that she woul d need the next paracentesis. Done 03/22 to delay next outpatient paracentesis as patient is going to a SNF E.Coli UTI - treated - Urine culture with <100,000 E. Coli - UA w/packed WBC, 3+leuks, few bacteria - completed 3 days of rocephin (03/15-03/17) Chronic diastolic heart failure Non-ischemic cardiomyopathy Paroxysmal atrial fibrillation Mechanical aortic valve Follows with advanced HF clinic here at (Dr. Busitllo) - Echo 11/30/20: LVEF 55%, severely dilated RV with reduced function, moderate leo ral annular calcification, severe TR, peak PA pressure 76 mmHg. - Weight on admission 142 lbs (dry weight ~ 128 - 132 lbs) - DIE CAST ENGINEER regimen: 5 mg bumex twice daily , aldactone 75mg twice daily , and lopress or 12.5 mg twice daily. Digoxin recently discontinued d/t renal function. > hold DIE CAST ENGINEER diuretics until outpatient CMP to be done next week and cardiology inpput. 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 Starr - patient's primary pier hand helper on day of discharge - message sent to Cardiology clinic for follow up Pubic ramus fracture per outside records, non displaced -Most likely can follow-up on this with ortho as outpatient LEONORA on CKD stage III Baseline Cr ~ 1.1. - Cr up to 1.56 --> 1.65 --> 1.5 - hold further diuretics - FeUrea - with >35%; give 25g q6h of albumin for 24 hours - consult nephrology - repeat Urine lytes UA and US renal without etiology - Give 1L NS 03/20 - hold farxiga for now - do not plan to resume at discharge with recurrent UTIs and not a strong indication (no systolic HF) - cr has remained stable for the last few days Hypothyroidism >Continue DIE CAST ENGINEER levothyroxine 75 mcg daily H/O Depression Continue DIE CAST ENGINEER sertraline 100 mg twice daily Items Needing Follow Up Pending items or areas that need to be addressed at follow up: CMP weekly Pending Labs and Follow Up Radiology Pending labs and/or radiology review at this time of discharge are listed below: if this area is blank, there are no items for review. Pending Labs Order Current Status UA REFLEX LABEL Collected (03/21/211736) URINALYSIS DIPSTICK REFLEX TO CULTURE Collected (03/21/211736) URINALYSIS MICROSCOPIC REFLEX TO CULTURE Collected (03/21/211736) CELL COUNT W/DIFF-FLUIDS In process CULTURE-ANAEROBIC In process UA REFLEX LABEL In process UA REFLEX LABEL In process CULTURE-WOUND/TISSUE/FLUID(AEROBIC ONLY)W/SENSITIVITY Preliminary result Medications Medication List START taking these medications enoxaparin 60 mg syringe; Commonly known as: LOVENOX; Dose: 60 mg; Inject 0.6 mL under the skin daily.; Refills: 0 lactulose 10 gram/15 mL oral solution; Dose: 20 g; Take 30 mL by mouth every 4 hours. Titrate to have 3-4 bowel movements per day.; Refills: 0 metoprolol tartrate 25 mg tablet; Dose: 12.5 mg; Take one-half tablet by mouth twice daily.; Quantity: 180 tablet; Refills: 0 XIFAXAN 550 mg tablet; Generic drug: rifAXIMin; Dose: 550 mg; Take one tablet by mouth twice daily.; Quantity: 60 tablet; Refills: 11 CHANGE how you take these medications bumetanide 1 mg tablet; Commonly known as: BUMEX; Dose: 2 mg; Doctor's comments: Do not fill pt has enough Bumex will contact pharmacy when needs more; Take two tablets by mouth twice daily for 360 days. Will need creatinine/renal function rechecked on 03/25 prior to resuming diuretics. Cardiology (Dr. Nitish Starr) managing.; Quantity: 360 tablet; Refills: 3; What changed: how much to take, additional instructions ferrous gluconate 240 mg (27 mg iron) tablet; Commonly known as: FERGON; Dose: 240 mg; Take one tablet by mouth daily.; Quantity: 90 tablet; Refills: 1; What changed: when to take this spironolactone 25 mg tablet; Commonly known as: ALDACTONE; Dose: 25 mg; Take one tablet by mouth twice daily. Take with food. Will need creatinine/renal function rechecked on 03/25 prior to resuming diuretics. Cardiology (Dr. Nitish Starr) managing.; Quantity: 540 tablet; Refills: 3; What changed: how much to take, additional instructions warfarin 1 mg tablet; Commonly known as: COUMADIN; Dose: 3 mg; Take three tablets by mouth daily.; Quantity: 120 tablet; Refills: 0; What changed: how much to take CONTINUE taking these medications acetaminophen 500 mg tablet; Commonly known as: TYLENOL EXTRA STRENGTH; Dose: 1,000 mg; Refills: 0 ascorbic acid 500 mg tablet; Commonly known as: VITAMIN C; Dose: 500 mg; Refills: 0 calcium carbonate 1250 mg tablet; Commonly known as: OS-KRUPA; Dose: 1,250 mg; Refills: 0 fluticasone propionate 50 mcg/actuation nasal spray, suspension; Commonly known as: FLONASE; Dose: 1 spray; Refills: 0 hyoscyamine 0.125 mg rapid dissolve tablet; Commonly known as: ANASPAZ; Dose: 0.125 mg; Place one tablet under tongue every 4 hours as needed.; Quantity: 180 tablet; Refills: 0 levothyroxine 75 mcg tablet; Commonly known as: SYNTHROID; Dose: 75 mcg; Refills: 0 midodrine 5 mg tablet; Commonly known as: PROAMATINE; Dose: 15 mg; Take three tablets by mouth three times daily.; Quantity: 270 tablet; Refills: 3 MULTIVITAMIN PO; Dose: 1 tablet; Refills: 0 oxybutynin chloride 5 mg tablet; Commonly known as: DITROPAN; Dose: 5 mg; Take one tablet by mouth daily.; Quantity: 180 tablet; Refills: [address] 40 mg tablet; Commonly known as: PROTONIX; Dose: 40 mg; Refills: 0 sertraline 100 mg tablet; Commonly known as: ZOLOFT; Dose: 100 mg; Take one tablet by mouth twice daily.; Quantity: 180 tablet; Refills: 0 VASCEPA 1 gram capsule; Generic drug: icosapent ethyL; Refills: 0 STOP taking these medications JARDIANCE 10 mg tablet; Generic drug: empagliflozin Return Appointments and Scheduled Appointments Scheduled appointments: Apr 12, 2021 11:30 AM Echo Doppler with [facility] Cardiology:[facility] (CVM Procedural) [address] [facility] [id number] Apr 12, 2021 1:30 PM Office visit with Stiven Walker MD Cardiology: [facility] (CVM Exam) [address] [facility] [address] Apr 20, 2021 10:00 AM Office visit with Andrea Monterroso MD Dermatology: [facility] (Internal Medicine) [address] [facility] [address] Jun 08, 2021 9:15 AM US ABDOMEN LIMITED with [facility] Imaging, Ultrasound: [facility] (MOB Radiology) [address] [facility] [address] Jun 08, 2021 10:30 AM Office visit with Jeanette Garcia APRN-HAIR DRESSER Transplant: [facility], [facility] (CFT [facility]) [address] [facility] [address] Additional appointment instructions: Will need weekly labs - CMP to be sent to Dr. Nitish Starr's team Fax: Consults, Procedures, Diagnostics, Micro, Pathology Consults: Hepatology and Nephrology Surgical Procedures & Dates: para centesis 03/15 and 03/22 Significant Diagnostic Studies, Micro and Procedures: noted in brief hospital co urse Significant Pathology: none Nutrition: Dietitian Documentation Discharge Disposition, Condition Patient Disposition: Prison Facility Condition at Discharge: Stable Code Status Code Status History Date Active Date Inactive Code Status Order ID 01/02/2021 [id number] 2021 1422 Full Code [id number] Wilberto Diaz MD I npatient 12/22/2020213812/30/2020 2332 Full Code [id number] Kasi Barker, DO ED Only showing the last 2 code statuses. Patient Instructions Comprehensive Metabolic Panel (CMP) Standing Status: Standing Number of Occurrences: 4 Standing Exp. Date: 05/21/21 Fax to: [phone] Dr. Nitish Starr, Cardiology Which provider would you like to CC? HAFSADULCE MARIA [[id number]] Which provider would you like to CC? NITISH STARR [[id number]] Which provider would you like to CC? ORQUIDEA DOE [[id number]] Which provider would you like to CC? GEOVANI SEQUEIRA [[id number]] Release to patient Immediate Protime INR (PT) Standing Status: Future Standing Exp. Date: 04/22/21 Goal INR of 2-3. Bridging with Lovenox Release to patient Immediate Low Sodium Diet You will need to monitor the amount of sodium in your diet. Do not eat more jaylon n 2g (grams) or 2000mg (milligrams) per day. If you have questions regarding your diet at home, you may contact a dietitian a t . Low Sodium Diet You will need to monitor the amount of sodium in your diet. Do not eat more jaylon n 2g (grams) or 2000mg (milligrams) per day. If you have questions regarding your diet at home, you may contact a dietitian a t . Fluid Restrictions Limit the amount of your daily fluids to 1500ml (milliliters). This is equal t o about 6 cups a day.. If you have questions about your diet after you go home, you can call a dietitia n at [phone]. Activity as Tolerated It is important to [...] or concerns regarding your hospital stay Call [phone]. If yo u have an emergency, do not call this number,and pleasedial 911. For non-urgen t matters, please call during normal business hours- this will help direct your call to a physician more familiar with your care and needs Please note: * your hospital physicians will not be managing your ongoing outpatient care. Please direct all calls regarding ongoing outpatient care to your primary care p hysician whenever possible. * Do not call this number to request pain medications. No pain medications riddhi l be filled nor refilled by calling this number. * All refill requests should be directed to your primary care provider. Discharging attending physician: MAG RODRIGUEZ [[id number]] Activity as Tolerated It is important to [...] or concerns regarding your hospital stay Call [phone]. If yo u have an emergency, do not call this number,and pleasedial 911. For non-urgen t matters, please call during normal business hours- this will help direct your call to a physician more familiar with your care and needs Please note: * your hospital physicians will not be managing your ongoing outpatient care. Please direct all calls regarding ongoing outpatient care to your primary care p hysician whenever possible. * Do not call this number to request pain medications. No pain medications riddhi l be filled nor refilled by calling this number. * All refill requests should be directed to your primary care provider. Discharging attending physician: MAG RODRIGUEZ [[id number]] Other Information Patient needs weekly CMP labs sent to Cardiology Team. Dr. Nitish Starr and Raz Sequeira, RYAN Complete if patient is going to a Prison Facility I certify that the patient requires skilled care Yes The patient's stay is expected to be less than 30 days Yes I will be in charge of patient in [facility] No Additional Orders: Case Management, Supplies, Home Health Home Health/DME None Signed: Mag Rodriguez DO 03/22/2021 cc: Primary Care Physician: Dulce Maria Gray Referring physicians: Steve Perry MD Additional provider(s): Did we miss something? If additional records are needed, please fax a request on office letterhead to [phone]. Please include the patient's name, date of b irth, fax number and type of information needed. Additional request can be made by email at [email or web address]. For general questions of information about electronic records sharing, call [phone]. DING CLERK * Shae Cm - 03/22/2021 11:01 AM ENCODING CLERK PIN DRAFTING MACHINE TENDER Note: Printed and delivered transfer packet to pt's wall unit per request of Deanne Wolf [facility], [facility]. Shae Cm Desk Officer DING CLERK * Deanne Bedolla - 03/21/2021 3:30 PM ENCODING CLERK Case Management Progress Note NAME:Zaria Paulson : AGE: 61 y.o. ADMISSION DATE: 03/14/2021 DAYS ADMITTED: LOS: 7 days Todays Date: 03/21/2021 Plan Discharge to [facility] tomorrow at 1pm via [facility] transport Interventions Pt accepted by [facility] and they can take her tomorrow Facility requested REGI set up [facility] transport and have it billed to them REGI set up transport through [facility], , for 1pm and requested them to bill [facility] REGI updated attending, pt, and pt's son REGI tasked PIN DRAFTING MACHINE TENDER to complete transfer packet Support Info or Referral Discharge Planning Discharge Planning: Prison Facility Medication Needs Financial Legal Other Disposition Expected Discharge Date 03/22/2021 1:00 PM Transportation Next Level of Care (Acute Psych discharges only) Discharge Disposition Deanne Bedolla LMSW *[id number] Selected Continued Care - Admitted Since 03/14/2021 [facility] Destination Coordination complete. Service Provider Selected Services Address Phone Fax Patient Preferred [facility] [place] [facility] [address], [place] [address] [phone] DING CLERK * Deanne Bedolla - 03/20/2021 5:14 PM ENCODING CLERK Case Management Progress Note NAME:Zaria Paulson : AGE: 61 y.o. ADMISSION DATE: 03/14/2021 DAYS ADMITTED: LOS: 6 days Todays Date: 03/20/2021 Plan Discharge to SNF Interventions Met with pt to discuss post-acute services recommended Provided Medicare.gov choice list with quality data from SNF Compare and offered to answer questions. Patient selected the following: [facility] Referral sent and facility is currently reviewing Support Info or Referral Discharge Planning Medication Needs Financial Legal Other Disposition Expected Discharge Date 03/21/2021 Transportation Next Level of Care (Acute Psych discharges only) Discharge Disposition Deanne Bedolla LMSW *[id number] Selected Continued Care - Admitted Since 03/14/2021 No services have been selected for the patient. DING CLERK * Deanne Bedolla - 03/15/2021 2:53 PM ENCODING CLERK Case Management Progress Note NAME:Zaira Paulson : AGE: 61 y.o. ADMISSION DATE: 03/14/2021 DAYS ADMITTED: LOS: 1 day Todays Date: 03/15/2021 Plan Complete CM assessment Interventions Attempted to complete CM assessment Pt confused Will attempt at a later date Support Info or Referral Discharge Planning Medication Needs Financial Legal Other Disposition Expected Discharge Date 03/17/2021 Transportation Next Level of Care (Acute Psych discharges only) Discharge Disposition Deanne Bedolla LMSW *[id number] Selected Continued Care - Admitted Since 03/14/2021 No services have been selected for the patient. DING CLERK documented in this encounter Discharge Instructions * Appointments* Mag Rodriguez DO - 03/22/2021 1:02 PM ENCODING CLERK Will need weekly labs - CMP to be sent to Dr. Nitish Starr's team Fax: DING CLERK documented in this encounter Medications at Time [...] 03/25 prior to resuming diuretics. Cardiology (Dr. Nitish Starr) managing. calcium carbonate Take 1,250 mg 0 [...] 03/25 prior to resuming diuretics. Cardiology (Dr. Nitish Starr) managing. 03/22/2020 VASCEPA 1 gram capsule TAKE [...] twice daily. documented as of this encounter Ordered Prescriptions Start Date End Date Prescription Sig Dispensed Refills 03/22/2021 spironolactone Take one 540 tablet 3 (ALDACTONE) 25 mg tablet tablet by mouth twice daily. Take with food. Will need creatinine/re nal function rechecked on 03/25 prior to resuming diuretics. Cardiology (Dr. Nitish Starr) managing. 03/22/2021 03/17/2022 bumetanide (BUMEX) 1 mg Take two 360 tablet 3 tablet tablets by mouth twice daily for 360 days. Will need creatinine/re nal function rechecked on 03/25 prior to resuming diuretics. Cardiology (Dr. Nitish Starr) managing. 03/22/2021 warfarin (COUMADIN) 1 mg Take three 120 tablet 0 tablet tablets by mouth daily. 03/22/2021 lactulose 10 gram/15 mL Take 30 mL by 0 oral solution mouth every 4 hours. Titrate to have 3-4 bowel movements per day. 03/22/2021 03/28/2021 enoxaparin (LOVENOX) 60 Inject 0.6 mL 0 mg syringe under the skin daily. 03/22/2021 03/22/2021 spironolactone Take one 540 tablet 3 (ALDACTONE) 25 mg tablet tablet by mouth twice daily. Take with food.To start 03/24/2021. Will need creatinine/re nal function rechecked on 03/25 prior to resuming diuretics. Cardiology (Dr. Nitish Starr) managing. 03/22/2021 04/12/2021 metoprolol tartrate 25 mg Take one-half 180 tablet 0 tablet tablet by mouth twice daily. 03/22/2021 03/22/2021 enoxaparin (LOVENOX) 60 Inject 0.6 mL 0 mg syringe under the skin every 12 hours. 03/22/2021 03/22/2021 bumetanide (BUMEX) 1 mg Take two 360 tablet 3 tablet tablets by mouth twice daily for 360 days. Will need creatinine/re nal function rechecked on 03/25 prior to resuming diuretics. Cardiology (Dr. Nitish Starr) managing. documented in this encounter Discharge Disposition Code Departure Means Destination Disposition Wheelchair Prison Facility documented in this encounter Progress Notes * Teri Brandon - 03/22/2021 11:10 AM ENCODING CLERK Continuum of Care Multiple Visit Patient - Case Management Progress Note NAME: Zaria Paulson : 1960 AGE: 61 y.o. Admits in past 12 mos: ED Visits: 0 Admissions: 7 Plan: Reassess for concerns/ barriers that hinder OP success. MVP Intervention: SWCM met with patient and s/o at bedside. Provided introduction and re-explai jyoti the MVP program. Discussed patients current home supports and plans at discharge. Patient repo rted that [facility] [place] [facility] and will stay fo r 4 wks. Patient reported that she was familiar with the facility as it was in [facility] and her mother had stayed there. Patient reported being hopeful for PT and OP to "make things better" as well as being able to get visitors.Patient and s/o reported that he will be providing patient with caregiver support after SNF. SWCM offered information on HCBS. Patient declined and stated that her oldest son was assisting her with that. Discussed patient fluid restriction as patient reported some concern. SWCM pr ovided encouragement to follow her care teams recommendations in order to make [facility] care improvments. Asked open ended questions to gain insight into patient's health goals. Jayde nt stated, "Everything was going to get better". Patient was not open to nathalia santos in goals of care conversation at this time. Re-explained the MVP team follow up upon future ED presentations/ IP admisspurvi armas. Provided business card. Next Steps: SWCM to monitor and remain available for further support to address ongoing Psychosocial barriers that hinder OP success. Other Considerations for Care Planning: Patient is actively engaged with Palliative Care, Gino Pandya, [facility]. Patient uses food resources in her area and [facility] SWCM provided with SNAP benef its overview and information. Check in about food security/ability to maintain r ecommended diet and link to additional resources as needed. Patient has Home Health for SN services, may need additional support at home. Check in on patient's decision to pursue HCBS services and link again to [employer] [facility] as needed. Continue to check with patient on affordability of utilities and medications and link to resources as needed. Previous Interventions: 12/25/20-MVP program introduced to the patient. Discussed program's goals. [facility] SW CM provided patient with pill box, SNAP information, HCBS overview information a nd local contacts Teri Brandon DING CLERK * Mag Rodriguez DO - 03/22/2021 8:14 AM ENCODING CLERK Internal Medicine Progress Note Name: Zaria Paulson Today's Date: 03/22/2021 Admission Date: 03/14/2021 LOS: 8 days Assessment/Plan: Principal Problem: Encephalopathy Zaria Paulson is a 61 yo F with a PMHx of NICM, HFpEF, paroxysmal atrial fibrillat ion, mechanical aortic valve, cirrhosis of unclear etiology, CKD with recent fal l who presents with Altered mental status. Acute encephalopathy/Hepatic encephalopathy - improving/nearly resolved Decompensated Liver Cirrhosis - Likely etiology from hepatic encephalopathy +- UTI -CT head and chest x ray unremarkable per outside records -UA show few bacteria and packed white blood cells. MELD-Na score: 21 at 03/21/2021 5:49 AM MELD score: 16 at 03/21/2021 5:49 AM Calculated from: Serum Creatinine: 1.56 MG/DL at 03/21/2021 5:49 AM Serum Sodium: 131 MMOL/L at 03/21/2021 5:49 AM Total Bilirubin: 0.5 MG/DL (Using min of 1 MG/DL) at 03/21/2021 5:49 AM INR(ratio): 1.6 at 03/21/2021 5:49 AM Age: 61 years - Paracentesis - negative for SBP - blood cultures ngtd Plan; >Avoid sedating agents like benzos and opioids if possible > continue on lactulose, continue, titrate to 3-4 BMs/day - stressed importance to patient, son and patient's SO >consulted hepatology, appreciate recommendations rifaxmin twice daily started this admission >continue DIE CAST ENGINEER midodrine > hold further diuretics with rise in Cr.- has been stable for last few days - s/p paracentesis on 03/22 - anticipate that it will be 7-10 days that she woul d need the next paracentesis. Done 03/22 to delay next outpatient paracentesis as patient is going to a SNF E.Coli UTI - treated - Urine culture with <100,000 E. Coli - UA w/packed WBC, 3+leuks, few bacteria - completed 3 days of rocephin (03/15-03/17) Chronic diastolic heart failure Non-ischemic cardiomyopathy Paroxysmal atrial fibrillation Mechanical aortic valve Follows with advanced HF clinic here at (Dr. Bustillo) - Echo 11/30/20: LVEF 55%, severely dilated RV with reduced function, moderate leo ral annular calcification, severe TR, peak PA pressure 76 mmHg. - Weight on admission 142 lbs (dry weight ~ 128 - 132 lbs) - DIE CAST ENGINEER regimen: 5 mg bumex twice daily , aldactone 75mg twice daily , and lopress or 12.5 mg twice daily. Digoxin recently discontinued d/t renal function. Plan > hold DIE CAST ENGINEER diuretics until outpatient CMP to be done next week > Continue Lopressor 12.5 mg twice daily with BP and HR parameters > Daily INR and river boat captain warfarin changed to 4 mg daily, pharm to manage - stop Farxiga with recurrent UTIs and no reduced EF Pubic ramus fracture per outside records, non displaced -Most likely can follow-up on this with ortho as outpatient LEONORA on CKD stage III Baseline Cr ~ 1.1. - Cr up to 1.56 --> 1.65 --> 1.5 - hold further diuretics - FeUrea - with >35%; give 25g q6h of albumin for 24 hours - consult nephrology - repeat Urine lytes UA and US renal without etiology - Give 1L NS 03/20 - hold farxiga for now - do not plan to resume at discharge with recurrent UTIs and not a strong indication (no systolic HF) - cr has remained stable for the last few days - continue to hold diuretics until 03/25. - reduced dose at discharge to resume after repeat CMP and cardiology inpput. - spoke with Dr. Starr - patient's primary pier hand helper today. Hypothyroidism >Continue DIE CAST ENGINEER levothyroxine 75 mcg daily H/O Depression Continue DIE CAST ENGINEER sertraline 100 mg twice daily FEN ppx Full code Dispo: Medically stable for discharge to SNF today. Mag Rodriguez, DO Primary Data [facility] B- [id number] >31 minutes in [id number] time spent with patient, patient/family counseling, coordination of care, and completion of discharge summary. . Subjective: Patient reports that she is doing well today - she had 2L removed with paracente sis yesterday. She is doing well today. No new symptoms. No fevers or chills . She is anxious to go to SNF and excited about PT/OT. ROS: Gen: no fevers or chills CV: no CP or palpitations Pulm: no dyspnea, cough GI: no nausea, vomiting, diarrhea or constipation, having stools Medications: Scheduled Meds:enoxaparin (LOVENOX) syringe 60 mg, 60 mg, Subcutaneous, QDAY(21) fluticasone propionate (FLONASE) nasal spray 1 spray, 1 spray, Each Nostril, QDA Y lactulose oral solution 20 g, 30 mL, Oral, Q4H levothyroxine (SYNTHROID) tablet 75 mcg, 75 mcg, Oral, QDAY 30 min before breakf ast metoprolol tartrate tablet 12.5 mg, 12.5 mg, Oral, BID midodrine (PROAMATINE) tablet 15 mg, 15 mg, Oral, TID oxybutynin chloride (DITROPAN) tablet 5 mg, 5 mg, Oral, TID pantoprazole DR (PROTONIX) tablet 40 mg, 40 mg, Oral, BID rifAXIMin (XIFAXAN) tablet 550 mg, 550 mg, Oral, BID sertraline (ZOLOFT) tablet 100 mg, 100 mg, Oral, BID warfarin (COUMADIN) tablet 3 mg, 3 mg, Oral, QHS Continuous Infusions: PRN and Respiratory Meds: Objective: Vitals: Vital Signs: Last Filed Vital Signs: 24 Miguel r Range BP: 132/91 (03/22 738) Temp: 36.9 C (98.4 F) (03/22 738) Pulse: 117 (03/22 738) Respirations: 18 PER MINUTE (03/22 738) SpO2: 95 % (03/22 738) BP: (85-132)/(48-91) Temp: [36.3 C (97.4 F)-36.9 C (98.4 F)] Pulse: [79-117] Respirations: [16 PER MINUTE-18 PER MINUTE] SpO2: [94 %-95 %] Intensity Pain Scale (Self Report): 8 (03/21/21 1430) Vitals: 03/14/212013 Weight: 54.8 kg (120 lb 13 oz) Intake/Output Summary: (Last 24 hours) Intake/Output Summary (Last 24 hours) at 03/22/2021 0814 Last data filed at 03/22/2021 0100 Gross per 24 hour Intake 702 ml Output 440 ml Net 262 ml Stool Occurrence: 1 Physical Exam: GEN: Alert and oriented x4, no acute distress, cooperative Neuro: oriented to self,moves all extremities; PERRL; EOMI PULM: Lungs, clear to auscultation bilaterally. No respiratory distress. CV: Regular rhythm. Systolic murmur; ABD: Soft, non-tender, minimally distended. Bowel Sounds present. No rebound ten derness, no guarding. EXT: No edema, no cyanosis. Lab Review: Pertinent labs reviewed Radiology and other Diagnostics Review: Pertinent radiology reviewed. Mag Rodriguez DO Primary Data [facility] B- 4997 DING CLERK * Gabriel St MD - 03/21/2021 4:21 PM ENCODING CLERK Gastroenterology Progress Note Patient Name:Zaria Paulson Admission Date: 03/14/2021 7:50 PM Principal Problem: Encephalopathy History of Present Illness/Subjective: 61 y.o.femalewith history of cardiac cirrhosis decompensated by ascites, A. fib, status post mechanical aortic valve on warfarin who was transferred from [facility] with encephalopathy. Hepatology consulted for further evaluation and managem ent. Interval update: Patient denies nausea, vomiting, abdominal pain, brain fog, fev ers, chills. Assessment/ Plan: Decompensatedcardiaccirrhosis: MELD-Na score: 21 at 03/21/2021 5:49 AM MELD score: 16 at 03/21/2021 5:49 AM Calculated from: Serum Creatinine: 1.56 MG/DL at 03/21/2021 5:49 AM Serum Sodium: 131 MMOL/L at 03/21/2021 5:49 AM Total Bilirubin: 0.5 MG/DL (Using min of 1 MG/DL) at 03/21/2021 5:49 AM INR(ratio): 1.6 at 03/21/2021 5:49 AM Age: 61 years -Follows with Dr. Doe. Not a transplant candidate due to comorbidities. -MELD elevated due to warfarin use. -Decompensated by ascites. Patient has evidence of encephalopathy on exam. Hepatic encephalopathy:No prior history. Not on DIE CAST ENGINEER medications.Evidence o f encephalopathy on exam likely in the setting of UTI. Lactulose initiated on 03/14. Variceal screening:Last EGD in 12/2020 with trace esophageal varices. No gastr ic varices. Moderate portal hypertensive gastropathy in entire stomach. Fluid/volume status:Ascites present. On DIE CAST ENGINEER bumex 5 mg BID and spironolactone 75 mg BID. Diuretics managed by Cardiology. Has required 3 therapeutic paracente ses this month. HCC screening:Abdominal U/S with no hepatic mass in 11/2020. AFP 1.4 in 10/2020. HFpEF: S/p mAVR: Severe tricuspid regurgitation: Pulmonary HTN: Patient's encephalopathy has resolved. Her creatinine remained stably elevated. Renal was consulted and she received 1 L NS on 03/20. Diuretics continue to be held and should be restarted at a lower dose given LEONORA on presentation likely due to overdiuresis. Recommendations: 1) low-sodium, high-protein diet 2) agree with holding DIE CAST ENGINEER Bumex and spironolactone. Diuretics are managed by ca rdiology prior to admission. Would recommend a lower dose when reinitiated. 3) continue lactulose. Titrate to 3-4 bowel movements daily. Continue rifaximi n 550 mg twice daily. 4) trend CMP and INR daily. Patient seen/discussed with Dr. Hector. Tamir St M.D. GI Fellow 03/21/2021 4:21 PM Review of Systems: A 10 point review systems was taken and is negative except otherwise mentioned i n the HPI. Please see HPI for additional pertinent documentation Physical Exam: Vitals: 03/20/21 1553 03/20/21 2008 03/21/21 0134 03/21/21 0828 BP: 101/67 106/71 94/69 98/64 BP Source: Arm, Right Upper Arm, Right Upper Arm, Right Upper Arm, Right Upper Pulse: 84 90 82 90 Temp: 36.8 C (98.3 F) 36.4 C (97.6 F) 36.7 C (98 F) SpO2: 92% 98% 93% 94% Weight: Height: Constitutional- Vitals above, no acute distress. Head - Normocephalic, atraumatic. Eyes - EOMI grossly. No icterus Ears, nose, mouth, throat- No oral ulcer or bleeding. Respiratory - Symmetric chest rise, no increased work of breathing. Cardiovascular - Peripheral pulses intact, no pedal edema. Gastrointestinal- Non-TTP. No hepatospenomegaly. Skin - No exposed rash, lesion. Neurologic - No CN deficit, normal fluid speech Psychiatric - Judgement intact, thought content appropriate. Labs/Imaging: Pertient labs/imaging were reviewed on initiation of progress note. DING CLERK Associated attestation - Sesar Hector MD - 03/21/2021 10:30 PM ENCODING CLERK This is a 61-year-old lady with cardiac cirrhosis and admitted for both acute ki dney injury and hepatic encephalopathy. After stopping the diuretics and volume resuscitation to the hepatic encephalopathy and acute kidney injury have both i mproved. My suggestion is to cut the PTO diuretics to half. ATTESTATION I personally performed the turpin portions of the E/M visit, discussed case with re sident and concur with resident documentation of history, physical exam, assessm ent, and treatment plan unless otherwise noted. Staff name: Sesar Hector MD Date: 03/21/2021 * Mag Rodriguez DO - 03/21/2021 12:44 PM ENCODING CLERK DING CLERK * Nasreen Alvarez MD - 03/21/2021 12:08 PM ENCODING CLERK Renal Progress Note Name: Zaria Paulson Today's Date: 03/21/2021 Admission Date: 03/14/2021 LOS: 7 days Assessment and Plan Principal Problem: Encephalopathy Zaria Paulson is a 61 y.o. female LEONORA on CKD LEONORA likely related to intravascular depletion versus hepatorenal syndrome U Na 33 03/16 which is unlikely for HRS repeat urine sodium less than on Decembe r Renal ultrasound on March 19 within normal limits UTI - treated Acute encephalopathy- resolved Decompensated liver cirrhosis On Midodrine Chronic distolic heart failure NICM Parox A fib Mechanical aortic valve On lopressor and AC Pubic ramous fracture Hyponatremia: chronic.Baseline about 130 chronically Recommendations: Creatinine appears to be overall stable. No improvement with IV fluids supportin g HRS We will continue to hold diuretics today. I do not see any signs of fluid overl oad although her ascites makes it challenging to fully assess that. Would encourage p.o. hydration. Avoid nephrotoxic meds and contrast Avoid hypotension Continue midodrine If patient is planned for discharge is appropriate to send her on a lower dose d iuretics with follow-up BMP weekly. She can be followed by hematology and inter nal medicine. She can be seen by nephrology clinic if her creatinine is worseni ng. Nasreen Alvarez MD Pager [phone] Subjective Zaria Paulson is a 61 y.o. female no major events Reports working with PT No lower limb edema Medications Medications MEDSenoxaparin, 60 mg, Subcutaneous, QDAY(21) fluticasone propionate, 1 spray, Each Nostril, QDAY lactulose, 30 mL, Oral, Q4H levothyroxine, 75 mcg, Oral, QDAY 30 min before breakfast metoprolol tartrate, 12.5 mg, Oral, BID midodrine, 15 mg, Oral, TID oxybutynin chloride, 5 mg, Oral, TID pantoprazole DR, 40 mg, Oral, BID rifAXIMin, 550 mg, Oral, BID sertraline, 100 mg, Oral, BID warfarin, 3 mg, Oral, QHS IV MEDS Prn acetaminophen Q6H PRN 1,000 mg at 03/21/21 0851, ondansetron Q6H P RN 4 mg at 03/20/21 0642 OR ondansetron (ZOFRAN) IV Q6H PRN, saliva, synthet ic PRN, warfarin, pharmacy to manage Per Pharmacy Physical Exam Vital Signs: Last Filed In 24 Hours Vital Signs: 24 Hour Range BP: 98/64 (03/21 828) Temp: 36.7 C (98 F) (03/21 828) Pulse: 90 (03/21 828) Respirations: 16 PER MINUTE (03/21 828) SpO2: 94 % (03/21 828) BP: (94-106)/(64-71) Temp: [36.4 C (97.6 F)-36.8 C (98.3 F)] Pulse: [82-90] Respirations: [16 PER MINUTE] SpO2: [92 %-98 %] Intensity Pain Scale (Self Report): 8 (03/21/21 0851) Intake/Output Summary (Last 24 hours) at 03/21/2021 1209 Last data filed at 03/21/2021 0854 Gross per 24 hour Intake 480 ml Output Net 480 ml Vitals: 03/14/212013 Weight: 54.8 kg (120 lb 13 oz) Gen: Alert and Oriented, NAD HEENT: Sclera normal, MMM, EOMI , mouth and ear lesion noted neck: supple, NO LN CV: no JVD, S1 and S2 normal, no rubs, murmurs or gallops Pulm: Nl respiratory effort, Clear to auscultation bilateral GI: BS+ x4, non-tender to palpation, + ascites Neuro: Grossly normal, moving all extremities, speech intact Ext: no edema Skin: no visible or palpable rash Labs: Recent Labs 03/18/21 1224 03/19/21 0638 03/20/21 1017 03/21/21 0549 NA 130* 129* 131* 131* K 3.6 3.8 3.7 3.3* CL 97* 95* 96* 98 CO2 25 24 24 22 GAP 8 10 11 11 BUN 26* 29* 31* 35* CR 1.65* 1.50* 1.52* 1.56* GLU 156* 74 93 88 CA 8.7 8.7 8.8 8.5 ALBUMIN 3.3* 3.3* 3.7 3.5 Recent Labs 03/18/21 1224 03/19/21 0638 03/20/21 1017 03/21/21 0549 WBC -- 6.3 5.9 5.7 HGB -- 11.7* 12.0 11.4* HCT -- 35.6* 35.6* 34.5* PLTCT -- 224 246 233 INR 3.3* 2.5* 1.8* 1.6* AST 31 28 29 27 ALT 15 13 13 11 ALKPHOS 101 99 124* 132* Estimated Creatinine Clearance: 33.6 mL/min (A) (based on SCr of 1.56 mg/dL (H)) . Vitals: 03/14/212013 Weight: 54.8 kg (120 lb 13 oz) No results for input(s): PHART, PO2ART in the last 72 hours. Invalid input(s): PC02A DING CLERK * Sharmila Coreas, OT - 03/21/2021 11:38 AM ENCODING CLERK OCCUPATIONAL THERAPY ASSESSMENT NOTE Name: Zaria Paulson : 1960 Age : 61 y.o. Admission Date: 03/14/2021 LOS: 7 days Mobility Patient Turn/Position: (pt currently working with PT) Progressive Mobility Level: Walk in room Distance Walked (feet): 20 ft Level of Assistance: Assist X1 Assistive Device: Walker Activity Limited By: Weakness;Fatigue Subjective Pertinent Dx per Physician: PMHx of NICM, HFpEF, paroxysmal atrial fibrillation, mechanical aortic valve, CKD, depression, non-Hodgkins lymphoma and cirrhosis (etiology secondary to chemotherapy from treatment with non-Hodgkin lymphoma), t herapeutic paracentesis every 2 weeks with recent fall who presents with altered mental status. Note non-displaced pubic rami fracture per outside records. Precautions: Falls Pain / Complaints: Patient agrees to participate in therapy Objective Psychosocial Status: Willing and Cooperative to Participate Home Living Type of Home: House Home Layout: One Level (3 stairs to enter) Bathroom Shower / Tub: Tub/Shower Unit Bathroom Toilet: Standard Bathroom Equipment: Shower Chair Home Equipment: Walker Prior Function Level Of [place]: Independent with ADLs and functional transfers;Needed ass istance with ADLs;Needed assistance with homemaking Lives With: Significant Other Receives Help From: Significant Other Other Function Comments: Pt reports requiring increased assist for ADLs from her significnat other leading up to admission. She reprots she typically ambulates with a RW. She estimates having 3-4 falls in recent months-- describes associate d confusion and weakness prior to falls. Vision Current Vision: Wears Glasses All of the Time ADL's Where Assessed: (bedside commode) LE Dressing Assist: Moderate Assist LE Dressing Deficits: Thread RLE Into Underwear;Pull Up Over Hips Toileting Assist: Maximum Assist Toileting Deficits: Supervision/Safety Comment: Pt performs SPT to BSC for BM. Pt able to assist with threading one leg into new briefs after initiated and assists somehwat in pulling over hips in fr ont with steadying assist. ADL Mobility Bed Mobility: Supine to Sit: Standby assist Bed Mobility: Sit to Supine: Standby assist Transfer Type: Sit to/from stand Transfer: Assistance Level: From;Bed;Minimal assist Transfer: Assistive Device: Roller walker Transfer: Type of Assistance: For safety considerations;For balance Other Transfer Type: Stand pivot Other Transfer: Assistance Level: From;Bed;To;Commode;Minimal assist Other Transfer: Assistive Device: Roller walker End of Activity Status: In bed;Instructed patient to request assist with mobilit y;Instructed patient to use call light;Nursing notified Gait Distance: 20 feet Gait: Assistance Level: Minimal assist Gait: Assistive Device: Roller walker Activity Tolerance Endurance: 3/5 Tolerates 25-30 Minutes Exercise w/Multiple Rests Cognition Overall Cognitive Status: WFL to Adequately Complete Self Care Tasks Safely Cognition Comment: Pt reports feeling her mentation is improving Assessment Assessment: Decreased Endurance;Decreased Self-Care Trans;Decreased High-Level A DLs Goal Formulation: Patient Comments: Pt limited by generalized weakness and deconditioning. Pt will benefit from ongoing therapy services to maximize functional status. Pt reports she renetta karelly wished to d/c home with HH and family support, but she is now feeling li ke inpatient setting will be best for her. AM-PAC 6 Clicks Daily Activity Inpatient Putting on and taking off regular lower body clothes?: A Lot Bathing (Including washing, rinsing, drying): A Lot Toileting, which includes using toilet, bedpan, or urinal: A Lot Putting on and taking off regular upper body clothing: None Taking care of personal grooming such as brushing teeth: None Eating meals?: None Daily Activity Raw Score: 18 Standardized (t-scale) score: 38.66 CMS 0-100% Score: 46.65 CMS G Code Modifier: CK Plan OT Frequency: 3-5x/week OT Plan for Next Visit: Endurance, stand at sink for grooming, LB dressing, toil eting in bathroom ADL Goals Patient Will Perform All ADL's: w/ Stand By Assist Functional Transfer Goals Pt Will Perform All Functional Transfers: w/ Stand By Assist OT Discharge Recommendations Recommendation: Inpatient setting Patient Currently Requires Physical Assist With: All mobility;All personal care ADLs;All home functioning ADLs Therapist: SLAVA Sandra/Nancy [id number] Date: 03/21/2021 DING CLERK * Mag Rodriguez, DO - 03/21/2021 7:37 AM ENCODING CLERK Internal Medicine Progress Note Name: Zaria Paulson Today's Date: 03/21/2021 Admission Date: 03/14/2021 LOS: 7 days Assessment/Plan: Principal Problem: Encephalopathy Zaria Paulson is a 61 yo F with a PMHx of NICM, HFpEF, paroxysmal atrial fibrillat ion, mechanical aortic valve, cirrhosis of unclear etiology, CKD with recent fal l who presents with Altered mental status. Acute encephalopathy/Hepatic encephalopathy - improving/nearly resolved Decompensated Liver Cirrhosis - Likely etiology from hepatic encephalopathy +- UTI -CT head and chest x ray unremarkable per outside records -UA show few bacteria and packed white blood cells. MELD-Na score: 21 at 03/21/2021 5:49 AM MELD score: 16 at 03/21/2021 5:49 AM Calculated from: Serum Creatinine: 1.56 MG/DL at 03/21/2021 5:49 AM Serum Sodium: 131 MMOL/L at 03/21/2021 5:49 AM Total Bilirubin: 0.5 MG/DL (Using min of 1 MG/DL) at 03/21/2021 5:49 AM INR(ratio): 1.6 at 03/21/2021 5:49 AM Age: 61 years - Paracentesis - negative for SBP - blood cultures ngtd Plan; >Avoid sedating agents like benzos and opioids if possible > started on lactulose, continue, titrate to 3-4 BMs/day once encephalopathy resolved >consulted hepatology, appreciate recommendations, likely will be adding rifaxmin to regimen >continue DIE CAST ENGINEER midodrine > hold further diuretics with rise in Cr. - had been receiving paracentesis about every 10 days. Will perform paracentes is prior to discharge. E.Coli UTI - treated - Urine culture with <100,000 E. Coli - UA w/packed WBC, 3+leuks, few bacteria - completed 3 days of rocephin (03/15-03/17) Chronic diastolic heart failure Non-ischemic cardiomyopathy Paroxysmal atrial fibrillation Mechanical aortic valve Follows with advanced HF clinic here at (Dr. Bustillo) - Echo 11/30/20: LVEF 55%, severely dilated RV with reduced function, moderate leo ral annular calcification, severe TR, peak PA pressure 76 mmHg. - Weight on admission 142 lbs (dry weight ~ 128 - 132 lbs) - DIE CAST ENGINEER regimen: 3 mg bumex BID, aldactone 100 mg BID, and lopressor 12.5 mg BID. Digoxin recently discontinued d/t renal function. Plan > hold DIE CAST ENGINEER diuretics > Continue Lopressor 12.5 mg twice daily with BP and HR parameters > Daily INR and river boat captain warfarin 4 mg daily, pharm to manage - stop Farxiga with recurrent UTIs and no reduced EF Pubic ramus fracture per outside records, non displaced -Most likely can follow-up on this with ortho as outpatient LEONORA on CKD stage III Baseline Cr ~ 1.1. - Cr up to 1.56 --> 1.65 --> 1.5 - hold further diuretics - FeUrea - with >35%; give 25g q6h of albumin for 24 hours - consult nephrology - repeat Urine lytes UA and US renal without etiology - Give 1L NS 03/20 - hold farxiga for now - do not plan to resume at discharge with recurrent UTIs and not a strong indication (no systolic HF) - cr has remained stable for the last few days - will resume diuretics at discha rge at 1/2 the prior dose. Hypothyroidism >Continue DIE CAST ENGINEER levothyroxine 75 mcg daily H/O Depression Continue DIE CAST ENGINEER sertraline 100 mg BID FEN ppx Full code Dispo: Continue inpatient admission, acute encephalopathy resolved. Patient is willing to go to a facility for rehab/PT/OT. Awaiting facility acceptance. W ill need paracentesis prior to discharge - likely tomorrow morning. Mag Rodriguez, DO [facility] B- [id number] Total floor/unit time (reviewing and writing notes, examining the patient, revie wing test results etc) spent was 35 minutes from of which > 50% was spent in care coordination and bedside counseling. Subjective: Patient reports that she is doing well today - she wanted to know if she could b e seen by dermatology for her lip wound that she has. No new symptoms today - she reports getting up to walk with PT yesterday. ROS: Gen: no fevers or chills CV: no CP or palpitations Pulm: no dyspnea, cough GI: no nausea, vomiting, diarrhea or constipation, having stools Medications: Scheduled Meds:enoxaparin (LOVENOX) syringe 60 mg, 60 mg, Subcutaneous, QDAY(21) fluticasone propionate (FLONASE) nasal spray 1 spray, 1 spray, Each Nostril, QDA Y lactulose oral solution 20 g, 30 mL, Oral, Q4H levothyroxine (SYNTHROID) tablet 75 mcg, 75 mcg, Oral, QDAY 30 min before breakf ast metoprolol tartrate tablet 12.5 mg, 12.5 mg, Oral, BID midodrine (PROAMATINE) tablet 15 mg, 15 mg, Oral, TID oxybutynin chloride (DITROPAN) tablet 5 mg, 5 mg, Oral, TID pantoprazole DR (PROTONIX) tablet 40 mg, 40 mg, Oral, BID rifAXIMin (XIFAXAN) tablet 550 mg, 550 mg, Oral, BID sertraline (ZOLOFT) tablet 100 mg, 100 mg, Oral, BID warfarin (COUMADIN) tablet 3 mg, 3 mg, Oral, QHS Continuous Infusions: PRN and Respiratory Meds: Objective: Vitals: Vital Signs: Last Filed Vital Signs: 24 Miguel r Range BP: 94/69 (03/21 134) Temp: 36.4 C (97.6 F) (03/20 2008) Pulse: 82 (03/21 134) Respirations: 16 PER MINUTE (03/21 134) SpO2: 93 % (03/21 134) BP: (94-106)/(67-71) Temp: [36.4 C (97.6 F)-36.8 C (98.3 F)] Pulse: [82-90] Respirations: [16 PER MINUTE] SpO2: [92 %-98 %] Intensity Pain Scale (Self Report): 5 (03/20/21 0900) Vitals: 03/14/212013 Weight: 54.8 kg (120 lb 13 oz) Intake/Output Summary: (Last 24 hours) Intake/Output Summary (Last 24 hours) at 03/21/2021 0737 Last data filed at 03/20/2021 2113 Gross per 24 hour Intake 240 ml Output Net 240 ml Stool Occurrence: 1 Physical Exam: GEN: Alert and oriented x4, no acute distress, cooperative Neuro: oriented to self,moves all extremities; PERRL; EOMI PULM: Lungs, clear to auscultation bilaterally. No respiratory distress. CV: Regular rhythm. Systolic murmur; ABD: Soft, non-tender, minimally distended. Bowel Sounds present. No rebound ten derness, no guarding. EXT: No edema, no cyanosis. Lab Review: Pertinent labs reviewed Radiology and other Diagnostics Review: Pertinent radiology reviewed. Mag Rodriguez DO Primary Data [facility] B- [id number] DING CLERK * Coty Gaxiola RN - 03/20/2021 2:38 PM ENCODING CLERK Trevino removed by this RN at [address] Rodriguez DING CLERK * Ashish Ambriz RN - 03/20/2021 1:52 PM ENCODING CLERK Patient alert and oriented x4. Profile updated, care plan/education reviewed, an d call light within reach. DING CLERK * Nasreen Alvarez MD - 03/20/2021 12:37 PM ENCODING CLERK Renal Progress Note Name: Zaria Paulson Today's Date: 03/20/2021 Admission Date: 03/14/2021 LOS: 6 days Assessment and Plan Principal Problem: Encephalopathy Zaria Paulson is a 61 y.o. female LEONORA on CKD LEONORA likely related to fluid status. HRS is possible U Na 33 03/16 which is unlikely for HRS repeat urine sodium less than on e r Renal ultrasound on March 19 within normal limits UTI - treated Acute encephalopathy- resolved Decompensated liver cirrhosis On Midodrine Chronic distolic heart failure NICM Parox A fib Mechanical aortic valve On lopressor and AC Pubic ramous fracture Hyponatremia: chronic. Baseline about 130 chronically Recommendations: Creatinine seems to be stable. She has very low urine sodium which could be due to hepatorenal syndrome or intravascular depletion. I would continue to hold diuretics patient has no sign of fluid overload. Would encourage p.o. hydration. And it would be appropriate to give 1 L normal saline and follow effect on kidney function. Avoid nephrotoxic meds and contrast Avoid hypotension if possible Continue midodrine Her UA continues to show WBCs, RBCs, leukocyte esterase, blood, and protein. I would appreciate internal medicine thought about SGLT2 inhibitors. It may be ap propriate to discontinue the and fully treat her UTI. It may also be appropriat e to reconsider the trade-off of benefits and harms of SGLT2 inhibitor if she is going to have recurrent infections. We will continue to follow Nasreen Alvarez MD Pager [phone] Subjective Zaria Paulson is a 61 y.o. female No major events overnight Patient denies fever, chest pain, or shortness of breath. Trevino catheter in place draining yellow urine she had 650 cc of urine last 24 ho urs Medications Medications MEDSdapagliflozin, 10 mg, Oral, QDAY fluticasone propionate, 1 spray, Each Nostril, QDAY lactulose, 30 mL, Oral, Q4H levothyroxine, 75 mcg, Oral, QDAY 30 min before breakfast metoprolol tartrate, 12.5 mg, Oral, BID midodrine, 15 mg, Oral, TID oxybutynin chloride, 5 mg, Oral, TID pantoprazole DR, 40 mg, Oral, BID rifAXIMin, 550 mg, Oral, BID sertraline, 100 mg, Oral, BID warfarin, 2 mg, Oral, QHS IV MEDS Prn acetaminophen Q6H PRN 1,000 mg at 03/20/21 0856, ondansetron Q6H P RN 4 mg at 03/20/21 0642 OR ondansetron (ZOFRAN) IV Q6H PRN, warfarin, pharm acy to manage Per Pharmacy Physical Exam Vital Signs: Last Filed In 24 Hours Vital Signs: 24 Hour Range BP: 97/68 (03/20 1132) Temp: 36.8 C (98.2 F) (03/20 1132) Pulse: 83 (03/20 1132) Respirations: 16 PER MINUTE (03/20 113) SpO2: 95 % (03/20 1132) BP: (90-109)/(62-89) Temp: [36.4 C (97.6 F)-37.1 C (98.7 F)] Pulse: [47-97] Respirations: [16 PER MINUTE-18 PER MINUTE] SpO2: [95 %-98 %] Intensity Pain Scale (Self Report): 5 (03/20/21 0900) Intake/Output Summary (Last 24 hours) at 03/20/2021 1237 Last data filed at 03/20/2021 0311 Gross per 24 hour Intake 240 ml Output 650 ml Net -410 ml Vitals: 03/14/212013 Weight: 54.8 kg (120 lb 13 oz) Gen: Alert and Oriented, No Acute Distress HEENT: Sclera normal; MMM CV: no JVD, S1 and S2 normal, no rubs, murmurs or gallops Pulm: Clear to Auscultation bilateral GI: BS+ x4, non-tender to palpation Neuro: Grossly normal, moving all extremities, speech intact Ext: no edema, clubbing or cyanosis Skin: no rash Labs: Recent Labs 03/18/21 1224 03/19/21 0638 03/20/21 1017 NA 130* 129* 131* K 3.6 3.8 3.7 CL 97* 95* 96* CO2 25 24 24 GAP 8 10 11 BUN 26* 29* 31* CR 1.65* 1.50* 1.52* GLU 156* 74 93 CA 8.7 8.7 8.8 ALBUMIN 3.3* 3.3* 3.7 Recent Labs 03/18/21 0725 03/18/21 1224 03/19/21 0638 03/20/21 1017 WBC 5.9 -- 6.3 5.9 HGB 12.9 -- 11.7* 12.0 HCT 40.1 -- 35.6* 35.6* PLTCT 241 -- 224 246 INR -- 3.3* 2.5* 1.8* AST -- 31 28 29 ALT -- 15 13 13 ALKPHOS -- 101 99 124* Estimated Creatinine Clearance: 34.5 mL/min (A) (based on SCr of 1.52 mg/dL (H)) . Vitals: 03/14/212013 Weight: 54.8 kg (120 lb 13 oz) No results for input(s): PHART, PO2ART in the last 72 hours. Invalid input(s): PC02A DING CLERK * Sharmila Patel, PT - 03/20/2021 10:06 AM ENCODING CLERK PHYSICAL THERAPY ASSESSMENT Name: Zaria Paulson : 1960 Age : 61 y.o. Admission Date: 03/14/2021 LOS: 6 days Subjective Significant hospital events: PMHx of NICM, HFpEF, paroxysmal atrial fibrillation , mechanical aortic valve, CKD, depression, non-Hodgkins lymphoma and cirrhosis (etiology secondary to chemotherapy from treatment with non-Hodgkin lymphoma), therapeutic paracentesis every 2 weeks with recent fall who presents with altere d mental status. Note non-displaced pubic rami fracture per outside records. Mental / Cognitive Status: Alert;Oriented;To Person;To Place;Cooperative (did no t ask date) Persons Present: Son (Blair) Pain: 7/10;8/10;During activity (and 0/10 at rest in bed pre/post assessment) Pain Location: Left (pelvis and left shoulder) Pain Interventions: Patient agrees to participate in therapy with modifications to session;Patient pre-medicated Comments: Room Air Comments: Multiple hospital admissions over past 6 months. Son reports patient initially presented to OSH on 03/12/21after falling and was discharged home, ret urned to hospital a few days later. Ambulation Assist: Independent Mobility at Household Level with Device Patient Owned Equipment: Roller Walker;Manual Wheelchair;Commode (tub bench) Home Situation: Lives with Family (boyfriend) Type of Home: House Entry Stairs: 3-5 Stairs In-Home Stairs: No Stairs Comments: Son confirms if patient decides to discharge home, her boyfriend and sourav hastings could assist her into home, bump wheelchair up stairs. Son expresses that he is hopeful patient will at least consider an inpatient stay prior to return home. ROM ROM Position Assessed: Supine;Seated ROM Method: Active LE ROM: Bilateral;Hip;Limited (by pain) Strength Overall Strength: Generalized Weakness Bed Mobility/Transfer Bed Mobility: Supine to Sit: Minimal Assist;Head of Bed Elevated;Assist with B L E;Assist with Trunk Bed Mobility: Sit to Supine: Moderate Assist;Bed Flat;Assist with B LE Comments: Reviewed recommendation for assist with LEs during bed mobility with s on at end of session Transfer Type: Sit to/from Stand Transfer: Assistance Level: To/From;Bed;Minimal Assist (initially had 2nd person as precaution, not needed) Other Transfer Type: Stand Pivot Other Transfer: Assistance Level: To/From;Commode;Minimal Assist Other Transfer: Assistive Device: Roller Walker Other Transfer: Type Of Assistance: Verbal Cues;Requires Extra Time End Of Activity Status: In Bed;Nursing Notified;Instructed Patient to Request As sist with Mobility;Instructed Patient to Use Call Light (alarm activated) Comments: Patient declined sitting up in bedside chair at this time. Encouraged patient to sit up in chair several times/day (i.e. for meals). Gait Gait Distance: able take 2 small side steps to/from commode Gait: Assistance Level: Minimal Assist Gait: Assistive Device: Roller Walker Gait: Descriptors: Pace: Slow Activity Limited By: Complaint of Pain Activity/Exercise Sit Edge Of Bed: 10 minutes (+) Sit Edge Of Bed Assist: Stand By Assist Education Persons Educated: Patient Patient Barriers To Learning: Confusion Interventions: Repetition of Instructions;Family Education Teaching Methods: Verbal Instruction;Demonstration Patient Response: More Instruction Required;Return Demonstration Topics: Plan/Goals of PT Interventions;Use of Assistive Device/Orthosis;Mobility Progression;Safety Awareness;Up with Assist Only;Importance of Increasing Activ ity;Recommend Continued Therapy Assessment/Progress Impaired Mobility Due To: Pain;Decreased Activity Tolerance;Deconditioning;Decre ased Strength;Impaired Balance;Safety Concerns Assessment/Progress: Should Improve w/ Continued PT Comments: Patient is not ambulatory at this time, only able to complete stand pi vot transfers to/from commode with assistance this date with extra time. Eliot gasca is limited by pain but comfort during mobility did appear to improve with assi st and recommendations from this therapist for technique. Patient would benefit from inpatient setting for rehabilitation prior to return to home. She reports preference to return home with HH therapies and family assistance but is willing to explore option of placement. AM-PAC 6 Clicks Basic Mobility Inpatient Turning from your back to your side while in a flat bed without using bed rails: A Little Moving from lying on your back to sitting on the side of a flatbed without using bedrails : A Lot Moving to and from a bed to a chair (including a wheelchair): A Little Standing up from a chair using your arms (e.g. wheelchair, or bedside chair): A Little To walk in hospital room: Total Climbing 3-5 steps with a railing: Total Raw Score: 13 Standardized (T-scale) Score: 33.99 Basic Mobility CMS 0-100%: 57.65 CMS G Code Modifier for Basic Mobility: CK Goals Goal Formulation: With Patient Time For Goal Achievement: 1 day, To, 3 days Patient Will Go Supine To/From Sit: w/ Minimal Assist (bed flat) Patient Will Ambulate: 11-30 Feet, w/ Walker, w/ Minimal Assist Patient Will Go Up / Down Stairs: (will establish at later date as appropriate) Plan Treatment Interventions: Mobility Training;Strengthening;Balance Activities;Endu di Training Plan Frequency: 3-5 Days per Week PT Plan for Next Visit: assess gait with walker PT Discharge Recommendations Recommendation: Inpatient setting if patient agreeable (would like to discuss op tions with SW) versus home with home health and [facility] and will bump patient up stairs in wheelchair. Discussed with CM that either setting could be appropriate depending on patient goals and family's ability to provide significant assistance. Currently patient requires assistance for all mobility and ADLs. Patient Currently Requires Equipment: Owns what is needed Therapist Sharmila Patel, PT, DPT Date 03/20/2021 DING CLERK * Mag Rodriguez, DO - 03/20/2021 8:23 AM ENCODING CLERK Internal Medicine Progress Note Name: Zaria Paulson Today's Date: 03/20/2021 Admission Date: 03/14/2021 LOS: 6 days Assessment/Plan: Principal Problem: Encephalopathy Zaria Paulson is a 61 yo F with a PMHx of NICM, HFpEF, paroxysmal atrial fibrillat ion, mechanical aortic valve, cirrhosis of unclear etiology, CKD with recent fal l who presents with Altered mental status. Acute encephalopathy/Hepatic encephalopathy - improving/nearly resolved Decompensated Liver Cirrhosis - Likely etiology from hepatic encephalopathy +- UTI -CT head and chest x ray unremarkable per outside records -UA show few bacteria and packed white blood cells. MELD-Na score: 26 at 03/19/2021 6:38 AM MELD score: 21 at 03/19/2021 6:38 AM Calculated from: Serum Creatinine: 1.50 MG/DL at 03/19/2021 6:38 AM Serum Sodium: 129 MMOL/L at 03/19/2021 6:38 AM Total Bilirubin: 0.6 MG/DL (Using min of 1 MG/DL) at 03/19/2021 6:38 AM INR(ratio): 2.5 at 03/19/2021 6:38 AM Age: 61 years - Paracentesis - negative for SBP - blood cultures ngtd Plan; >Avoid sedating agents like benzos and opioids if possible > started on lactulose, continue, titrate to 3-4 BMs/day once encephalopathy resolved >consulted hepatology, appreciate recommendations, likely will be adding rifaxmin to regimen >continue DIE CAST ENGINEER midodrine > hold further diuretics with rise in Cr. E.Coli UTI - treated - Urine culture with <100,000 E. Coli - UA w/packed WBC, 3+leuks, few bacteria - completed 3 days of rocephin (03/15-03/17) Chronic diastolic heart failure Non-ischemic cardiomyopathy Paroxysmal atrial fibrillation Mechanical aortic valve Follows with advanced HF clinic here at (Dr. Bustillo) - Echo 11/30/20: LVEF 55%, severely dilated RV with reduced function, moderate leo ral annular calcification, severe TR, peak PA pressure 76 mmHg. - Weight on admission 142 lbs (dry weight ~ 128 - 132 lbs) - DIE CAST ENGINEER regimen: 3 mg bumex BID, aldactone 100 mg BID, and lopressor 12.5 mg BID. Digoxin recently discontinued d/t renal function. Plan > hold DIE CAST ENGINEER diuretics > Continue Lopressor 12.5 mg twice daily with BP and HR parameters > Daily INR and river boat captain warfarin 4 mg daily, pharm to manage - stop Farxiga with recurrent UTIs and no reduced EF Pubic ramus fracture per outside records, non displaced -Most likely can follow-up on this with ortho as outpatient LEONORA on CKD stage III Baseline Cr ~ 1.1. - Cr up to 1.56 --> 1.65 --> 1.5 - hold further diuretics - FeUrea - with >35%; give 25g q6h of albumin for 24 hours - consult nephrology - repeat Urine lytes UA and US renal without etiology - Give 1L NS today - hold farxiga for now - do not plan to resume at discharge with recurrent UTIs and not a strong indication (no systolic HF) - removed trevino today - will repeat UA Hypothyroidism >Continue DIE CAST ENGINEER levothyroxine 75 mcg daily H/O Depression Continue DIE CAST ENGINEER sertraline 100 mg BID FEN ppx Full code Dispo: Continue inpatient admission, acute encephalopathy improved, however LEONORA present - nephrology consulted today. Mag Rodriguez, [facility] B- [id number] Subjective: Patient reports that she feels much better today. She is agreeable to discharge to SNF. She is A&Ox4 but often does not follow conversation - we discussed renal function and diuresis, but she referred to her INR and warfarin. Son who is DPOA states this is not how she was a few months ago and has noticed an overall decline in general. ROS: Gen: no fevers or chills CV: no CP or palpitations Pulm: no dyspnea, cough GI: no nausea, vomiting, diarrhea or constipation, having stools Medications: Scheduled Meds:dapagliflozin (FARXIGA) tablet 10 mg, 10 mg, Oral, QDAY fluticasone propionate (FLONASE) nasal spray 1 spray, 1 spray, Each Nostril, QDA Y lactulose oral solution 20 g, 30 mL, Oral, Q4H levothyroxine (SYNTHROID) tablet 75 mcg, 75 mcg, Oral, QDAY 30 min before breakf ast metoprolol tartrate tablet 12.5 mg, 12.5 mg, Oral, BID midodrine (PROAMATINE) tablet 15 mg, 15 mg, Oral, TID oxybutynin chloride (DITROPAN) tablet 5 mg, 5 mg, Oral, TID pantoprazole DR (PROTONIX) tablet 40 mg, 40 mg, Oral, BID rifAXIMin (XIFAXAN) tablet 550 mg, 550 mg, Oral, BID sertraline (ZOLOFT) tablet 100 mg, 100 mg, Oral, BID warfarin (COUMADIN) tablet 2 mg, 2 mg, Oral, QHS Continuous Infusions: PRN and Respiratory Meds: Objective: Vitals: Vital Signs: Last Filed Vital Signs: 24 Miguel r Range BP: 96/62 (03/20 311) Temp: 36.4 C (97.6 F) (03/20 311) Pulse: 88 (03/20 311) Respirations: 16 PER MINUTE (03/20 311) SpO2: 98 % (03/20 311) BP: (90-109)/(61-89) Temp: [36.4 C (97.6 F)-37.1 C (98.7 F)] Pulse: [47-97] Respirations: [16 PER MINUTE-18 PER MINUTE] SpO2: [94 %-98 %] Intensity Pain Scale (Self Report): 8 (03/20/21310) Vitals: 03/14/212013 Weight: 54.8 kg (120 lb 13 oz) Intake/Output Summary: (Last 24 hours) Intake/Output Summary (Last 24 hours) at 03/20/2021 0823 Last data filed at 03/20/2021310 Gross per 24 hour Intake 240 ml Output 650 ml Net -410 ml Stool Occurrence: 1 Physical Exam: GEN: Alert and oriented x4, no acute distress, cooperative Neuro: oriented to self,moves all extremities; PERRL; EOMI PULM: Lungs, clear to auscultation bilaterally. No respiratory distress. CV: Regular rhythm. Systolic murmur; ABD: Soft, non-tender, non-distended. Bowel Sounds present. No rebound tendernes s, no guarding. EXT: No edema, no cyanosis. Lab Review: Pertinent labs reviewed Radiology and other Diagnostics Review: Pertinent radiology reviewed. Mag Rodriguez DO Primary Data [facility] B- 7208 DING CLERK * Coty Gaxiola RN - 03/19/2021 6:54 PM ENCODING CLERK Patients daughter in law Kavita called. Would like me to pass along that her and the patients son Prieto would like to be called during rounds 03/20/21. Will advis e team. DING CLERK * Gabriel St MD - 03/19/2021 1:23 PM ENCODING CLERK Gastroenterology Progress Note Patient Name:Zaria Paulson Admission Date: 03/14/2021 7:50 PM Principal Problem: Encephalopathy History of Present Illness/Subjective: 61 y.o. female with history of cardiac cirrhosis decompensated by ascites, A. fi b, status post mechanical aortic valve on warfarin who was transferred from OSH with encephalopathy. Hepatology consulted for further evaluation and management . Interval update: Patient is oriented and does not have asterixis on exam. She de nies fevers, chills, nausea, vomiting, or abdominal pain. Assessment/ Plan: Decompensated cardiac cirrhosis: MELD-Na score: 26 at 03/19/2021 6:38 AM MELD score: 21 at 03/19/2021 6:38 AM Calculated from: Serum Creatinine: 1.50 MG/DL at 03/19/2021 6:38 AM Serum Sodium: 129 MMOL/L at 03/19/2021 6:38 AM Total Bilirubin: 0.6 MG/DL (Using min of 1 MG/DL) at 03/19/2021 6:38 AM INR(ratio): 2.5 at 03/19/2021 6:38 AM Age: 61 years -Follows with Dr. Doe. Not a transplant candidate due to comorbidities. -MELD elevated due to warfarin use. -Decompensated by ascites. Patient has evidence of encephalopathy on exam. Hepatic encephalopathy: No prior history. Not on DIE CAST ENGINEER medications. Evidence of e ncephalopathy on exam likely in the setting of UTI. Lactulose initiated on 02/22 2. Variceal screening: Last EGD in 12/2020 with trace esophageal varices. No gastri c varices. Moderate portal hypertensive gastropathy in entire stomach. Fluid/volume status: Ascites present. On DIE CAST ENGINEER bumex 5 mg BID and spironolactone 7 5 mg BID. Diuretics managed by Cardiology. Has required 3 therapeutic paracentes es this month. HCC screening: Abdominal U/S with no hepatic mass in 11/2020. AFP 1.4 in 10/2020. HFpEF: S/p mAVR: Severe tricuspid regurgitation: Pulmonary HTN: Patient's encephalopathy has improved with initiation of lactulose and holding d iuretics. We suspect patient's encephalopathy on presentation was due to dehydr ation which is further supported by LEONORA which developed. Creatinine is improvin g with administration of albumin. Agree with continuing to hold diuretics. Whe n patient is discharged, would consider a lower dose of diuretics. Recommend in itiation of rifaximin as well which can be continued upon discharge. Recommendations: 1) low-sodium, high-protein diet 2) agree with holding DIE CAST ENGINEER Bumex 5 mg twice daily and spironolactone 75 mg twice daily. Diuretics are managed by cardiology prior to admission. Would recommend restarting at a lower dose upon discharge. 3) continue lactulose titrating to 3-4 bowel movements daily. Would start rifax imin 550 mg twice daily 4) trend CMP and INR daily Patient seen/discussed with Dr. Hector. Tamir St M.D. GI Fellow 03/19/2021 1:24 PM Review of Systems: A ten point ROS was taken and is negative except otherwise mentioned in the HPI> Please see HPI for additional pertinent documentation Physical Exam: Vitals: 03/18/21 1700 03/19/21 0415 03/19/21 0744 03/19/21 1137 BP: 102/71 99/71 102/63 107/61 BP Source: Arm, Right Upper Arm, Right Upper Arm, Right Upper Arm, Left Upper Pulse: 90 89 91 96 Temp: 36.4 C (97.6 F) 36.5 C (97.7 F) 36.5 C (97.7 F) 36.7 C (98.1 F) SpO2: 99% 94% 98% 94% Weight: Constitutional- Vitals above, no acute distress. Head - Normocephalic, atraumatic. Eyes - EOMI grossly. No icterus Ears, nose, mouth, throat- No oral ulcer or bleeding. Respiratory - Symmetric chest rise, no increased work of breathing. Cardiovascular - Peripheral pulses intact, no pedal edema. Gastrointestinal- Non-TTP. No hepatospenomegaly. Skin - No exposed rash, lesion. Neurologic - No CN deficit, normal fluid speech Psychiatric - Judgement intact, thought content appropriate. Labs/Imaging: Pertient labs/imaging were reviewed on initiation of progress note. DING CLERK Associated attestation - Sesar Hector MD - 03/19/2021 11:05 PM ENCODING CLERK This is a 61-year-old lady with cardiac cirrhosis and admitted for both hepatic encephalopathy and acute kidney injury. Patient is on a very high-dose diuretic s as outpatient simultaneous presentation with hepatic encephalopathy and acute kidney injury is likely the result of overdiuresis. While patient may benefit f rom lactulose and starting rifaximin patient will also benefit from cutting down the diuretics. ATTESTATION I personally performed the turpin portions of the E/M visit, discussed case with re sident and concur with resident documentation of history, physical exam, assessm ent, and treatment plan unless otherwise noted. Staff name: Sesar Hector MD Date: 03/19/2021 * Mag Rodriguez DO - 03/19/2021 8:18 AM ENCODING CLERK Internal Medicine Progress Note Name: Zaria Paulson Today's Date: 03/19/2021 Admission Date: 03/14/2021 LOS: 5 days Assessment/Plan: Principal Problem: Encephalopathy Zaria Paulson is a 61 yo F with a PMHx of NICM, HFpEF, paroxysmal atrial fibrillat ion, mechanical aortic valve, cirrhosis of unclear etiology, CKD with recent fal l who presents with Altered mental status. Acute encephalopathy/Hepatic encephalopathy - improving/nearly resolved Decompensated Liver Cirrhosis - Likely etiology from hepatic encephalopathy +- UTI -CT head and chest x ray unremarkable per outside records -UA show few bacteria and packed white blood cells. MELD-Na score: 26 at 03/19/2021 6:38 AM MELD score: 21 at 03/19/2021 6:38 AM Calculated from: Serum Creatinine: 1.50 MG/DL at 03/19/2021 6:38 AM Serum Sodium: 129 MMOL/L at 03/19/2021 6:38 AM Total Bilirubin: 0.6 MG/DL (Using min of 1 MG/DL) at 03/19/2021 6:38 AM INR(ratio): 2.5 at 03/19/2021 6:38 AM Age: 61 years - Paracentesis - negative for SBP - blood cultures ngtd Plan; >Avoid sedating agents like benzos and opioids if possible > started on lactulose, continue, titrate to 3-4 BMs/day once encephalopathy resolved >consulted hepatology, appreciate recommendations, likely will be adding rifaxmin to regimen >continue DIE CAST ENGINEER midodrine > hold further diuretics with rise in Cr. E.Coli UTI - treated - Urine culture with <100,000 E. Coli - UA w/packed WBC, 3+leuks, few bacteria - completed 3 days of rocephin (03/15-03/17) Chronic diastolic heart failure Non-ischemic cardiomyopathy Paroxysmal atrial fibrillation Mechanical aortic valve Follows with advanced HF clinic here at (Dr. Bustillo) - Echo 11/30/20: LVEF 55%, severely dilated RV with reduced function, moderate leo ral annular calcification, severe TR, peak PA pressure 76 mmHg. - Weight on admission 142 lbs (dry weight ~ 128 - 132 lbs) - DIE CAST ENGINEER regimen: 3 mg bumex BID, aldactone 100 mg BID, and lopressor 12.5 mg BID. Digoxin recently discontinued d/t renal function. Plan > hold DIE CAST ENGINEER diuretics > Continue Lopressor 12.5 mg twice daily with BP and HR parameters > Daily INR and river boat captain warfarin 4 mg daily, pharm to manage Pubic ramus fracture per outside records, non displaced -Most likely can follow-up on this with ortho as outpatient LEONORA on CKD stage III Baseline Cr ~ 1.1. - Cr up to 1.56 --> 1.65 --> 1.5 - hold further diuretics - FeUrea - with >35%; give 25g q6h of albumin for 24 hours - consult nephrology - repeat Urine lytes UA and US renal today, appreciate inpu t Hypothyroidism >Continue [employer] levothyroxine 75 mcg daily H/O Depression Continue DIE [employer] sertraline 100 mg BID FEN ppx Full code Dispo: Continue inpatient admission, acute encephalopathy improved, however LEONORA present - nephrology consulted today. Mag Rodriguez, [facility] B- [id number] Subjective: Patient reports that she feels much better today. She is A&Ox4. She ate her toast/breakfast this morning. feels that she is doing better, reports that she knows her symptoms can return. ROS: Gen: no fevers or chills CV: no CP or palpitations Pulm: no dyspnea, cough GI: no nausea, vomiting, diarrhea or constipation, having stools Medications: Scheduled Meds:albumin 25% injection 25 g, 25 g, Intravenous, Q6H* dapagliflozin (FARXIGA) tablet 10 mg, 10 mg, Oral, QDAY fluticasone propionate (FLONASE) nasal spray 1 spray, 1 spray, Each Nostril, QDA Y lactulose oral solution 20 g, 30 mL, Oral, Q4H levothyroxine (SYNTHROID) tablet 75 mcg, 75 mcg, Oral, QDAY 30 min before breakf ast metoprolol tartrate tablet 12.5 mg, 12.5 mg, Oral, BID midodrine (PROAMATINE) tablet 15 mg, 15 mg, Oral, TID oxybutynin chloride (DITROPAN) tablet 5 mg, 5 mg, Oral, TID pantoprazole DR (PROTONIX) tablet 40 mg, 40 mg, Oral, BID sertraline (ZOLOFT) tablet 100 mg, 100 mg, Oral, BID warfarin (COUMADIN) tablet 2 mg, 2 mg, Oral, QHS Continuous Infusions: PRN and Respiratory Meds: Objective: Vitals: Vital Signs: Last Filed Vital Signs: 24 Miguel r Range BP: 102/63 (03/19 744) Temp: 36.5 C (97.7 F) (03/19 744) Pulse: 91 (03/19 744) Respirations: 18 PER MINUTE (03/19 744) SpO2: 98 % (03/19 744) BP: (98-102)/(63-74) Temp: [36.4 C (97.6 F)-36.7 C (98.1 F)] Pulse: [89-94] Respirations: [16 PER MINUTE-18 PER MINUTE] SpO2: [94 %-100 %] Intensity Pain Scale (Self Report): 7 (03/18/21 1146) Vitals: 03/14/212013 Weight: 54.8 kg (120 lb 13 oz) Intake/Output Summary: (Last 24 hours) Intake/Output Summary (Last 24 hours) at 03/19/2021 0818 Last data filed at 03/18/2021 1759 Gross per 24 hour Intake 430 ml Output 375 ml Net 55 ml Stool Occurrence: 1 Physical Exam: GEN: Alert and oriented x4, no acute distress, cooperative Neuro: oriented to self,moves all extremities; PERRL; EOMI PULM: Lungs, clear to auscultation bilaterally. No respiratory distress. CV: Regular rhythm. Systolic murmur; ABD: Soft, non-tender, non-distended. Bowel Sounds present. No rebound tendernes s, no guarding. EXT: No edema, no cyanosis. Lab Review: Pertinent labs reviewed Radiology and other Diagnostics Review: Pertinent radiology reviewed. Mag Rodriguez DO Primary Data [facility] B- [id number] DING CLERK * Crissy Mcgee, PHARMD - 03/18/2021 1:26 PM ENCODING CLERK Pharmacy Warfarin Note Subjective: Pharmacy consulted to assist with management of warfarin therapy. Objective: Zaria Paulson is a 61 y.o. female [facility], Afib . Current Warfarin Orders Medication Dose Route Frequency warfarin (COUMADIN) tablet 2 mg 2 mg Oral QHS warfarin, pharmacy to manage 1 each Service Per Pharmacy Bridge therapy: N/A. Warfarin dose for Ms. Paulson prior to admission: 4mg nightly INR Date/Time Value Ref Range Status 03/18/2021 1224 3.3 (H) 0.8 - 1.2 Final 03/17/2021 0416 4.1 (H) 0.8 - 1.2 Final 03/16/2021 0755 3.2 (H) 0.8 - 1.2 Final Drug interaction(s): none. Assessment: Goal INR for Ms. Paulson is 2-3 [facility], Afib . INR: INR (no units) Date/Time Value 03/18/2021 1224 3.3 (H) Plan: 1. INR trending down. Will restart warfarin at 2 mg daily. 2. Next INR: Tomorrow 3. Pharmacy will [...] no longer be managed by Pharmac y Crissy Mcgee, PHARMD 03/18/2021 DING CLERK * Mag Rodriguez, DO - 03/18/2021 8:17 AM ENCODING CLERK Internal Medicine Progress Note Name: Zaria Paulson Today's Date: 03/18/2021 Admission Date: 03/14/2021 LOS: 4 days Assessment/Plan: Principal Problem: Encephalopathy Zaria Paulson is a 61 yo F with a PMHx of NICM, HFpEF, paroxysmal atrial fibrillat ion, mechanical aortic valve, cirrhosis of unclear etiology, CKD with recent fal l who presents with Altered mental status. Acute encephalopathy/Hepatic encephalopathy - improving/nearly resolved Decompensated Liver Cirrhosis - Likely etiology from hepatic encephalopathy +- UTI -CT head and chest x ray unremarkable per outside records -UA show few bacteria and packed white blood cells. MELD-Na score: 29 at 03/17/2021 4:16 AM MELD score: 27 at 03/17/2021 4:16 AM Calculated from: Serum Creatinine: 1.56 MG/DL at 03/17/2021 4:16 AM Serum Sodium: 132 MMOL/L at 03/17/2021 4:16 AM Total Bilirubin: 0.6 MG/DL (Using min of 1 MG/DL) at 03/17/2021 4:16 AM INR(ratio): 4.1 at 03/17/2021 4:16 AM Age: 61 years - Paracentesis - negative for SBP - blood cultures ngtd Plan; >Avoid sedating agents like benzos and opioids if possible > started on lactulose, continue, titrate to 3-4 BMs/day once encephalopathy resolved >consulted hepatology, appreciate recommendations >continue DIE [employer] midodrine > hold further diuretics with rise in Cr. E.Coli UTI - treated - Urine culture with <100,000 E. Coli - UA w/packed WBC, 3+leuks, few bacteria - completed 3 days of rocephin (03/15-03/17) Chronic diastolic heart failure Non-ischemic cardiomyopathy Paroxysmal atrial fibrillation Mechanical aortic valve Follows with advanced HF clinic here at (Dr. Bustillo) - Echo 11/30/20: LVEF 55%, severely dilated RV with reduced function, moderate leo ral annular calcification, severe TR, peak PA pressure 76 mmHg. - Weight on admission 142 lbs (dry weight ~ 128 - 132 lbs) - DIE [employer]INEER regimen: 3 mg bumex BID, aldactone 100 mg BID, and lopressor 12.5 mg BID. Digoxin recently discontinued d/t renal function. Plan > hold D[employer] diuretics > Continue Lopressor 12.5 mg twice daily with BP and HR parameters > Daily INR and river boat captain warfarin 4 mg daily, pharm to manage Pubic ramus fracture per outside records, non displaced -Most likely can follow-up on this with ortho as outpatient LEONORA on CKD stage III Baseline Cr ~ 1.1. - Cr up to 1.56 --> 1.65 - hold further diuretics - FeUrea - with >35%; give 25g q6h of albumin - consult nephrology for tomorrow Hypothyroidism >Continue D[employer] levothyroxine 75 mcg daily H/O Depression Continue DIE [employer] sertraline 100 mg BID FEN ppx Full code Dispo: Continue inpatient admission, acute encephalopathy markedly improved tod ay, however cr continues to rise. Consulting nephrology for 03/19. Mag Rodriguez, Primary Data [facility] B- 6673 Subjective: Patient reports that she feels much better today. at bedside and confir ms that she is doing much better today. She is A&Ox4. She is having occasional spasms in her upper legs/inguinal region. Has not been up out of bed much since admission. HH had signed off last weekend prior to her fall. ROS: Gen: no fevers or chills CV: no CP or palpitations Pulm: no dyspnea, cough GI: no nausea, vomiting, diarrhea or constipation, having stools Medications: Scheduled Meds:dapagliflozin (FARXIGA) tablet 10 mg, 10 mg, Oral, QDAY fluticasone propionate (FLONASE) nasal spray 1 spray, 1 spray, Each Nostril, QDA Y lactulose oral solution 20 g, 30 mL, Oral, Q4H levothyroxine (SYNTHROID) tablet 75 mcg, 75 mcg, Oral, QDAY 30 min before breakf ast metoprolol tartrate tablet 12.5 mg, 12.5 mg, Oral, BID midodrine (PROAMATINE) tablet 15 mg, 15 mg, Oral, TID oxybutynin chloride (DITROPAN) tablet 5 mg, 5 mg, Oral, TID pantoprazole DR (PROTONIX) tablet 40 mg, 40 mg, Oral, BID sertraline (ZOLOFT) tablet 100 mg, 100 mg, Oral, BID Continuous Infusions: PRN and Respiratory Meds: Objective: Vitals: Vital Signs: Last Filed Vital Signs: 24 Miguel r Range BP: 97/70 (03/18 703) Temp: 36.2 C (97.1 F) (03/18 703) Pulse: 88 (03/18 703) Respirations: 16 PER MINUTE (03/18 703) SpO2: 97 % (03/18 703) BP: (93-104)/(64-72) Temp: [36.2 C (97.1 F)-36.8 C (98.2 F)] Pulse: [84-93] Respirations: [16 PER MINUTE] SpO2: [94 %-100 %] Intensity Pain Scale (Self Report): 9 (03/17/212045) Vitals: 03/14/212013 Weight: 54.8 kg (120 lb 13 oz) Intake/Output Summary: (Last 24 hours) Intake/Output Summary (Last 24 hours) at 03/18/2021 0817 Last data filed at 03/18/2021 0704 Gross per 24 hour Intake 480 ml Output 1375 ml Net -895 ml Stool Occurrence: 1 Physical Exam: GEN: Alert and oriented x4, no acute distress, cooperative Neuro: oriented to self,moves all extremities; PERRL; EOMI PULM: Lungs, clear to auscultation bilaterally. No respiratory distress. CV: Regular rhythm. Systolic murmur; ABD: Soft, non-tender, non-distended. Bowel Sounds present. No rebound tendernes s, no guarding. EXT: No edema, no cyanosis. Lab Review: Pertinent labs reviewed Radiology and other Diagnostics Review: Pertinent radiology reviewed. Mag Rodriguez DO Primary Data [facility] B- 4997 DING CLERK * Crissy Mcgee, PHARMD - 03/17/2021 9:03 AM ENCODING CLERK Pharmacy Warfarin Note Subjective: Pharmacy consulted to assist with management of warfarin therapy. Objective: Zaria Paulson is a 61 y.o. female receiving warfarin [facility], Afib . Current Warfarin Orders Medication Dose Route Frequency warfarin (COUMADIN) tablet 2 mg 2 mg Oral QHS warfarin, pharmacy to manage 1 each Service Per Pharmacy Bridge therapy: N/A. Warfarin dose for Ms. Paulson prior to admission: 4mg nightly INR Date/Time Value Ref Range Status 03/18/2021 1224 3.3 (H) 0.8 - 1.2 Final 03/17/2021 0416 4.1 (H) 0.8 - 1.2 Final 03/16/2021 0755 3.2 (H) 0.8 - 1.2 Final Drug interaction(s): none. Assessment: Goal INR for Ms. Paulson is 2-3 for [facility], Afib . INR: INR (no units) Date/Time Value 03/18/2021 1224 3.3 (H) INR Home (no units) Date/Time Value 02/27/2021 0000 1.3 INR POC (no units) Date/Time Value 11/21/2020 0824 1.7 (H) Plan: 1. INR trending down. Will restart warfarin at 2 mg daily 2. Next INR: Tomorrow 3. Pharmacy will [...] no longer be managed by Pharmac y Crissy Mcgee PHARMD 03/18/2021 DING CLERK * Mag Rodriguez, - 03/17/2021 7:29 AM ENCODING CLERK Internal Medicine Progress Note Name: Zaria Paulson Today's Date: 03/17/2021 Admission Date: 03/14/2021 LOS: 3 days Assessment/Plan: Principal Problem: Encephalopathy Zaria Paulson is a 61 yo F with a PMHx of NICM, HFpEF, paroxysmal atrial fibrillat ion, mechanical aortic valve, cirrhosis of unclear etiology, CKD with recent fal l who presents with Altered mental status. Acute encephalopathy/Hepatic encephelopathy Decompensated Liver Cirrhosis - Likely etiology from hepatic encephalopathy +- UTI -CT head and chest x ray unremarkable per outside records -UA show few bacteria and packed white blood cells. MELD-Na score: 29 at 03/17/2021 4:16 AM MELD score: 27 at 03/17/2021 4:16 AM Calculated from: Serum Creatinine: 1.56 MG/DL at 03/17/2021 4:16 AM Serum Sodium: 132 MMOL/L at 03/17/2021 4:16 AM Total Bilirubin: 0.6 MG/DL (Using min of 1 MG/DL) at 03/17/2021 4:16 AM INR(ratio): 4.1 at 03/17/2021 4:16 AM Age: 61 years - Paracentesis - negative for SBP - blood cultures ngtd Plan; >Avoid sedating agents like benzos and opioids if possible > started on lactulose, continue, titrate to 3-4 BMs/day once encephalopathy resolved >consulted hepatology >continue DIE [employer]INEER midodrine > hold further diuretics with rise in Cr. E.Coli UTI - Urine culture with <100,000 E. Coli - UA w/packed WBC, 3+leuks, few bacteria - completed 3 days of rocephin (03/15-03/17) Chronic diastolic heart failure Non-ischemic cardiomyopathy Paroxysmal atrial fibrillation Mechanical aortic valve Follows with advanced HF clinic here at (Dr. Bustillo) - Echo 11/30/20: LVEF 55%, severely dilated RV with reduced function, moderate leo ral annular calcification, severe TR, peak PA pressure 76 mmHg. - Weight on admission 142 lbs (dry weight ~ 128 - 132 lbs) - DIE CA[employer] ENGINEER regimen: 3 mg bumex BID, aldactone 100 mg BID, and lopressor 12.5 mg BID. Digoxin recently discontinued d/t renal function. Plan > hold DIE [employer]INEER diuretics > Continue Lopressor 12.5 mg twice daily with BP and HR parameters > Daily INR and river boat captain warfarin 4 mg daily, pharm to manage Pubic ramus fracture per outside records, non displaced -Most likely can follow-up on this with ortho as outpatient LEONORA on CKD stage III Baseline Cr ~ 1.1. - Cr up to 1.56 today - hold further diuretics - FeUrea - with >35%; if continues to worsen will consult Nephrology tomorrow. Hypothyroidism >Continue DIE [employer]INEER levothyroxine 75 mcg daily H/O Depression Continue DIE CAST ENGINEER sertraline 100 mg BID FEN ppx Full code Dispo: Continue inpatient admission for acute encephalopathy. Having waxing a nd waning, was improved yesterday, however today - seems to be worsening. Mag Rodriguez, DO [facility] B- [id number] Subjective: Patient has difficulty with conversing today and following commands. When bein g checked for asterixis - has difficulty with following commands and starts to p oint towards the wall. She is not oriented to place or time. at beds fauzia. Patient has difficulty articulating her symptoms and areas of pain. ROS: Gen: no fevers or chills CV: no CP or palpitations Pulm: no dyspnea, cough GI: no nausea, vomiting, diarrhea or constipation, having stools Medications: Scheduled Meds:cefTRIAXone (ROCEPHIN) IVP 1 g, 1 g, Intravenous, Q24H* dapagliflozin (FARXIGA) tablet 10 mg, 10 mg, Oral, QDAY fluticasone propionate (FLONASE) nasal spray 1 spray, 1 spray, Each Nostril, QDA Y lactulose oral solution 20 g, 30 mL, Oral, Q4H levothyroxine (SYNTHROID) tablet 75 mcg, 75 mcg, Oral, QDAY 30 min before breakf ast metoprolol tartrate tablet 12.5 mg, 12.5 mg, Oral, BID midodrine (PROAMATINE) tablet 15 mg, 15 mg, Oral, TID oxybutynin chloride (DITROPAN) tablet 5 mg, 5 mg, Oral, TID pantoprazole DR (PROTONIX) tablet 40 mg, 40 mg, Oral, BID potassium chloride SR (K-DUR) tablet 40 mEq, 40 mEq, Oral, Q4H sertraline (ZOLOFT) tablet 100 mg, 100 mg, Oral, BID warfarin (COUMADIN) tablet 2 mg, 2 mg, Oral, QHS Continuous Infusions: PRN and Respiratory Meds: Objective: Vitals: Vital Signs: Last Filed Vital Signs: 24 Miguel r Range BP: 94/60 (03/17 344) Temp: 36.7 C (98 F) (03/17 344) Pulse: 93 (03/17 344) Respirations: 16 PER MINUTE (03/17 344) SpO2: 95 % (03/17 344) BP: (88-97)/(54-63) Temp: [36.5 C (97.7 F)-37 C (98.6 F)] Pulse: [93-98] Respirations: [16 PER MINUTE-20 PER MINUTE] SpO2: [92 %-100 %] Intensity Pain Scale (Self Report): 8 (03/16/212100) Vitals: 03/14/212013 Weight: 54.8 kg (120 lb 13 oz) Intake/Output Summary: (Last 24 hours) Intake/Output Summary (Last 24 hours) at 03/17/2021 0729 Last data filed at 03/17/2021 0000 Gross per 24 hour Intake 720 ml Output 2275 ml Net -1555 ml Stool Occurrence: 1 Physical Exam: GEN: Alert and oriented to person only, not to time, location or situation, no a cute distress, cooperative, but distracted and has difficulty following commands . Neuro: oriented to self,moves all extremities; PERRL; EOMI PULM: Lungs, clear to auscultation bilaterally. No respiratory distress. CV: Regular rhythm. Systolic murmur; ABD: Soft, non-tender, non-distended. Bowel Sounds present. No rebound tendernes s, no guarding. EXT: No edema, no cyanosis. Lab Review: Pertinent labs reviewed Radiology and other Diagnostics Review: Pertinent radiology reviewed. Mag Rodriguez DO [facility] B- 3642 DING CLERK * Agustin Steiner RN - 03/17/2021 2:45 AM ENCODING CLERK This RN stayed in pt room for 30 minutes trying to assist in the communication o f pt needs. Patient could not express needs. This RN tried verbal, visual, and w ritten communication. Patient could identify objects, colors, and could read wor ds quickly and clearly. Pt was asked to write her name. She tried four times bef ore she got her whole first name and a portion of her middle. Writing was very s haky and it was hard to follow her thought process in placement of letters and s ymbols. Pt would act as if she was typing in a way close to texting with her fin gers while trying to communicate her needs. This RN asked pt if she knew how to text and stated no. RN offered every therapeutic intervention possible and still did not meet needs. Will continue to monitor DING CLERK * Crissy Mcgee PHARMD - 03/16/2021 11:37 AM ENCODING CLERK Pharmacy Warfarin Note Subjective: Pharmacy consulted to assist with management of warfarin therapy. Objective: Zaria Paulson is a 61 y.o. female receiving warfarin for [facility] AVR, Afib . Current Warfarin Orders Medication Dose Route Frequency warfarin (COUMADIN) tablet 2 mg 2 mg Oral QHS warfarin, pharmacy to manage 1 each Service Per Pharmacy Bridge therapy: N/A. Warfarin dose for Ms. Paulson prior to admission: 4 mg daily INR Date/Time Value Ref Range Status 03/16/2021 0755 3.2 (H) 0.8 - 1.2 Final 03/15/2021 0658 2.3 (H) 0.8 - 1.2 Final Drug interaction(s): none. Assessment: Goal INR for Ms. Paulson is 2-[facility], Afib . INR: INR (no units) Date/Time Value 03/16/2021 0755 3.2 (H) INR Home (no units) Date/Time Value 02/27/2021 0000 1.3 INR POC (no units) Date/Time Value 11/21/2020 0824 1.7 (H) Plan: 1. INR increased from 2.3 to 3.2 today. Decrease warfarin dose to 2 mg nightly 2. Next INR: Tomorrow 3. Pharmacy will [...] no longer be managed by Pharmac y Crissy Mcgee PHARMSabi 03/16/2021 DING CLERK * Mag Rodriguez DO - 03/16/2021 8:23 AM ENCODING CLERK Internal Medicine Progress Note Name: Zaria Paulson Today's Date: 03/16/2021 Admission Date: 03/14/2021 LOS: 2 days Assessment/Plan: Principal Problem: Encephalopathy Zaria Paulson is a 61 yo F with a PMHx of NICM, HFpEF, paroxysmal atrial fibrillat ion, mechanical aortic valve, cirrhosis of unclear etiology, CKD with recent fal l who presents with Altered mental status. Acute encephalopathy/Hepatic encephelopathy Decompensated Liver Cirrhosis - Likely etiology from hepatic encephalopathy +- UTI -CT head and chest x ray unremarkable per outside records -UA show few bacteria and packed white blood cells. MELD-Na score: 25 at 03/16/2021 7:55 AM MELD score: 23 at 03/16/2021 7:55 AM Calculated from: Serum Creatinine: 1.47 MG/DL at 03/16/2021 7:55 AM Serum Sodium: 133 MMOL/L at 03/16/2021 7:55 AM Total Bilirubin: 1.0 MG/DL at 03/16/2021 7:55 AM INR(ratio): 3.2 at 03/16/2021 7:55 AM Age: 61 years - Paracentesis - negative for SBP Plan; >Avoid sedating agents like benzos and opioids if possible > started on lactulose, continue, titrate to 3-4 BMs/day once encephalopathy resolved > Start IV Rocephin while waiting for urine culture. > blood cx X2 >consulted hepatology >continue DIE CAST ENGINEER midodrine > hold further diuretics with rise in Cr. E.Coli UTI - Urine culture with <100,000 E. Coli - UA w/packed WBC, 3+leuks, few bacteria - continue rocephin (03/15-current) Chronic diastolic heart failure Non-ischemic cardiomyopathy Paroxysmal atrial fibrillation Mechanical aortic valve Follows with advanced HF clinic here at (Dr. Bustillo) - Echo 11/30/20: LVEF 55%, severely dilated RV with reduced function, moderate leo ral annular calcification, severe TR, peak PA pressure 76 mmHg. - Weight on admission 142 lbs (dry weight ~ 128 - 132 lbs) - DIE CAST ENGINEER regimen: 3 mg bumex BID, aldactone 100 mg BID, and lopressor 12.5 mg BID. Digoxin recently discontinued d/t renal function. Plan > hold DIE CAST ENGINEER diuretics > Continue Lopressor 12.5 mg twice daily. > Daily INR and river boat captain warfarin 4 mg daily, pharm to manage Pubic ramus fracture per outside records, non displaced -Most likely can follow-up on this with ortho as outpatient LEONORA on CKD stage III Baseline Cr ~ 1.1. - Cr up to 1.47 today - hold further diuretics - Check urine lytes Hypothyroidism >Continue DIE CAST ENGINEER levothyroxine 75 mcg daily H/O Depression Continue DIE CAST ENGINEER sertraline 100 mg BID FEN ppx Full code Dispo: Continue inpatient admission for acute encephalopathy. Having some imp rovement Mag Rodriguez, DO [facility] B- 6284 Subjective: Patient reports that she is feeling better today, is able to sit up in bed and i s eating breakfast. She knows she is at [employer] that it is February, has a hard t chhaya with the year. Her is at bedside and reports improvement. ROS: Gen: no fevers or chills CV: no CP or palpitations Pulm: no dyspnea, cough GI: no nausea, vomiting, diarrhea or constipation, having frequent stools Medications: Scheduled Meds:bumetanide (BUMEX) tablet 5 mg, 5 mg, Oral, BID cefTRIAXone (ROCEPHIN) IVP 1 g, 1 g, Intravenous, Q24H* dapagliflozin (FARXIGA) tablet 10 mg, 10 mg, Oral, QDAY fluticasone propionate (FLONASE) nasal spray 1 spray, 1 spray, Each Nostril, QDA Y lactulose oral solution 20 g, 30 mL, Oral, Q4H levothyroxine (SYNTHROID) tablet 75 mcg, 75 mcg, Oral, QDAY 30 min before breakf ast metoprolol tartrate tablet 12.5 mg, 12.5 mg, Oral, BID midodrine (PROAMATINE) tablet 15 mg, 15 mg, Oral, TID oxybutynin chloride (DITROPAN) tablet 5 mg, 5 mg, Oral, TID pantoprazole DR (PROTONIX) tablet 40 mg, 40 mg, Oral, BID sertraline (ZOLOFT) tablet 100 mg, 100 mg, Oral, BID spironolactone (ALDACTONE) tablet 75 mg, 75 mg, Oral, BID warfarin (COUMADIN) tablet 4 mg, 4 mg, Oral, QHS Continuous Infusions: PRN and Respiratory Meds: Objective: Vitals: Vital Signs: Last Filed Vital Signs: 24 Miguel r Range BP: 85/54 (03/16 703) Temp: 36.6 C (97.9 F) (03/16 703) Pulse: 93 (03/16 703) Respirations: 20 PER MINUTE (03/16 703) SpO2: 97 % (03/16 703) SpO2 Pulse: 102 (03/15 1306) BP: (85-122)/(54-97) Temp: [36.5 C (97.7 F)-37.1 C (98.8 F)] Pulse: [93-137] Respirations: [10 PER MINUTE-27 PER MINUTE] SpO2: [93 %-97 %] Vitals: 03/14/212013 Weight: 54.8 kg (120 lb 13 oz) Intake/Output Summary: (Last 24 hours) Intake/Output Summary (Last 24 hours) at 03/16/2021 0823 Last data filed at 03/16/2021 0740 Gross per 24 hour Intake 240 ml Output 2550 ml Net -2310 ml Stool Occurrence: 0 Physical Exam: GEN: Alert and oriented x 3, no acute distress, cooperative. PULM: Lungs, clear to auscultation bilaterally. No respiratory distress. CV: Regular rhythm. Systolic murmur; ABD: Soft, non-tender, non-distended. Bowel Sounds present. No rebound tendernes s, no guarding. EXT: No edema, no cyanosis. Lab Review: Pertinent labs reviewed Radiology and other Diagnostics Review: Pertinent radiology reviewed. Mag Rodriguez DO [facility] B- 1518 DING CLERK * Court Diaz RN - 03/15/2021 10:24 AM ENCODING CLERK Team paged as pt came down to IR and is in A-fib RVR rate 120-140s. Able to answ er A&O questions. BP stable at this time. Orders for metoprolol placed at this time. Will continue to monitor. DING CLERK * Maury Rushing MD - 03/15/2021 7:45 AM ENCODING CLERK Internal Medicine Progress Note Name: Zaria Paulson Today's Date: 03/15/2021 Admission Date: 03/14/2021 LOS: 1 day Assessment/Plan: Principal Problem: Encephalopathy Zaria Paulson is a 61 yo F with a PMHx of NICM, HFpEF, paroxysmal atrial fibrillat ion, mechanical aortic valve, cirrhosis of unclear etiology, CKD with recent fal l who presents with Altered mental status. Acute encephalopathy Cirrhosis hepatic encephelopathy - Likely etiology from [place] encephalopathy +- UTI -CT head and chest x ray unremarkable per outside records -UA show few bacteria and packed white blood cells. >Avoid sedating agents like benzos and opioids if possible >Start lactulose > Start IV Rocephin while waiting for urine culture. > Diagnostic and therapeutic paracentesis > blood cx X2 >consulted hepatology >continue DIE CAST ENGINEER midodrine Chronic diastolic heart failure Non-ischemic cardiomyopathy Paroxysmal atrial fibrillation Mechanical aortic valve Follows with advanced HF clinic here at (Dr. Bustillo) - Echo 11/30/20: LVEF 55%, severely dilated RV with reduced function, moderate leo ral annular calcification, severe TR, peak PA pressure 76 mmHg. - Weight on admission 142 lbs (dry weight ~ 128 - 132 lbs) - DIE CAST ENGINEER regimen: 3 mg bumex BID, aldactone 100 mg BID, and lopressor 12.5 mg BID. Digoxin recently discontinued d/t renal function. Plan >continue DIE CAST ENGINEER diuretics above > Continue Lopressor 12.5 mg twice daily. >check INR and restart home warfarin 4 mg daily Pubic ramus fracture per outside records, non displaced -Most likely can follow-up on this with ortho as outpatient CKD stage III Baseline Cr ~ 1.1. Appears close to baseline will monitor Hypothyroidism >Continue DIE CAST ENGINEER levothyroxine 75 mcg daily H/O Depression Continue DIE CAST ENGINEER sertraline 100 mg BID FEN ppx Full code Admit to medicine Maury Rushing M.D. Attending Physician Department of Internal Medicine Subjective: Patient remains confused this morning, she is a lethargic disoriented, sussy gasca bedside reports that there is no improvement in mental status since yesterday, reported normally patient will have 2-3 large bowel movement but recently she h as been having only 1 bowel movement per day and progressively getting more conf used. He report that patient's baseline is pretty coherent, denies fever or chi lls ROS: ROS not able to perform due to patient factor. Medications: Scheduled Meds:bumetanide (BUMEX) tablet 5 mg, 5 mg, Oral, BID dapagliflozin (FARXIGA) tablet 10 mg, 10 mg, Oral, QDAY fluticasone propionate (FLONASE) nasal spray 1 spray, 1 spray, Each Nostril, QDA Y lactulose oral solution 20 g, 30 mL, Oral, TID levothyroxine (SYNTHROID) tablet 75 mcg, 75 mcg, Oral, QDAY 30 min before breakf ast midodrine (PROAMATINE) tablet 15 mg, 15 mg, Oral, TID oxybutynin chloride (DITROPAN) tablet 5 mg, 5 mg, Oral, TID pantoprazole DR (PROTONIX) tablet 40 mg, 40 mg, Oral, BID sertraline (ZOLOFT) tablet 100 mg, 100 mg, Oral, BID spironolactone (ALDACTONE) tablet 75 mg, 75 mg, Oral, BID warfarin (COUMADIN) tablet 4 mg, 4 mg, Oral, QHS Continuous Infusions: PRN and Respiratory Meds: Objective: Vitals: Vital Signs: Last Filed Vital Signs: 24 Miguel r Range BP: 100/66 (03/14 2345) Temp: 36.9 C (98.4 F) (03/14 2345) Pulse: 103 (03/14 2345) Respirations: 22 PER MINUTE (03/14 2345) SpO2: 98 % (03/14 2345) BP: (100-105)/(59-66) Temp: [36.4 C (97.6 F)-36.9 C (98.4 F)] Pulse: [103] Respirations: [22 PER MINUTE] SpO2: [95 %-98 %] Intensity Pain Scale (Self Report): Asleep (03/14/212344) Vitals: 03/14/212013 Weight: 54.8 kg (120 lb 13 oz) Intake/Output Summary: (Last 24 hours) Intake/Output Summary (Last 24 hours) at 03/15/2021 0745 Last data filed at 03/14/20219 Gross per 24 hour Intake Output 400 ml Net -400 ml Physical Exam: GEN: Alert and oriented x 4, no acute distress, cooperative. ENT: Oropharynx pink and moist. No erythema or exudate. PULM: Lungs, clear to auscultation bilaterally. No respiratory distress. CV: Regular rhythm. No murmurs noted. BUE/BLE pulses present. ABD: Soft, non-tender, non-distended. Bowel Sounds present. No rebound tendernes s, no guarding. EXT: No edema, no cyanosis. Lab Review: Pertinent labs reviewed Radiology and other Diagnostics Review: Pertinent radiology reviewed. Maury Rushing MD Pager [phone] DING CLERK documented in this encounter H&P Notes * Dimitri Alvarez, - 03/14/2021 7:59 PM ENCODING CLERK Admission History and Physical Examination Name: Zaria Paulson 1 Admission Date: 03/14/2021 Assessment/Plan: Active Problems: * No active hospital problems. * Zaria Paulson is a 61 yo F with a PMHx of NICM, HFpEF, paroxysmal atrial fibrillat ion, mechanical aortic valve, cirrhosis of unclear etiology, CKD with recent fal l who presents with Altered mental status. Altered mental status in context of Cirrhosis Suspected hepatic encephelopathy -CT head and chest x ray unremarkable per outside records >Avoid sedating agents like benzos and opioids if possible >Start lactulose >check UA >consult hepatology >continue DIE CAST ENGINEER midodrine Chronic diastolic heart failure Non-ischemic cardiomyopathy Paroxysmal atrial fibrillation Mechanical aortic valve Follows with advanced HF clinic here at (Dr. Bustillo) - Echo 11/30/20: LVEF 55%, severely dilated RV with reduced function, moderate leo ral annular calcification, severe TR, peak PA pressure 76 mmHg - Weight on admission 142 lbs (dry weight ~ 128 - 132 lbs) - DIE CAST ENGINEER regimen: 3 mg bumex BID, aldactone 100 mg BID, and lopressor 12.5 mg BID. Digoxin recently discontinued d/t renal function. Plan >continue DIE CAST ENGINEER diuretics above >check INR and restart home warfarin 4 mg daily Pubic ramus fracture per outside records, non displaced -Most likely can follow-up on this with ortho as outpatient CKD stage III Baseline Cr ~ 1.1. Appears close to baseline will monitor Hypothyroidism >Check TSH >Continue DIE CAST ENGINEER levothyroxine 75 mcg daily H/O Depression Continue DIE CAST ENGINEER sertraline 100 mg BID FEN ppx Full code Admit to medicine __ Primary Care Physician: Dulce Maria Gray Verified Chief Complaint: Altered mentation History of Present Illness: Zaria Paulson is a 61 y.o. female with a PMHx o f NICM, HFpEF, paroxysmal atrial fibrillation, mechanical aortic valve, cirrhosi s of unclear etiology, CKD with recent fall who presents with Altered mental sta tus. She is able to open her eyes and nod if she is in pain but otherwise is no t oriented and not able to have a meaningful conversation. I confirmed history from her at bedside. She had fall on Friday and had taken oxy and nick lofen for the fall which made her mentation worse. She has been having worsenin g mentation over last 2 weeks but significantly worse over last few days. Denie s any sick contacts, fevers, chills, nausea or emesis and she has had one BM tod ay. Medical History: Diagnosis Date Cancer (HCC) Non- hodgkins lymphoma, chemo Disorder of thyroid gland Hypertension Iron deficiency anemia 08/03/2020 Iron deficiency anemia 08/03/2020 Surgical History: Procedure Laterality Date AORTIC VALVE REPLACEMENT 05/2009 mechanical ESOPHAGOGASTRODUODENOSCOPY WITH BIOPSY - FLEXIBLE N/A 06/06/2020 Performed by Bao Hernández MD at [facility] COLONOSCOPY DIAGNOSTIC WITH SPECIMEN COLLECTION BY BRUSHING/ WASHING - FLEXI BLE N/A 06/06/2020 Performed by Bao Hernández MD at [facility] ANGIOGRAPHY CORONARY ARTERY WITH RIGHT AND LEFT HEART CATHETERIZATION N/A Performed by Higinio Clarke MD at 2 CASHIER ASSISTANT POSSIBLE PERCUTANEOUS CORONARY STENT PLACEMENT WITH ANGIOPLASTY N/A 1 Performed by Higinio Clarke MD at [facility] CASHIER ASSISTANT ESOPHAGOGASTRODUODENOSCOPY WITH SPECIMEN COLLECTION BY BRUSHING/ WASHING N/A 10/21/2020 Performed by Cosmo Gomez MD at [facility] SIGMOIDOSCOPY WITH CONTROL OF BLEEDING - FLEXIBLE N/A 10/21/2020 Performed by Cosmo Gomez MD at [facility] SIGMOIDOSCOPY WITH DIRECTED SUBMUCOSAL INJECTION - FLEXIBLE 10/21/2020 Performed by Cosmo Gomez MD at [facility] ESOPHAGOGASTRODUODENOSCOPY WITH CONTROL OF BLEEDING - FLEXIBLE N/A 1 Performed by Bao Hernández MD at [facility] Family history reviewed; non-contributory Social History Socioeconomic History Marital status: Spouse [...] Social Determinants of Health Financial Resource Strain: Not on file Food Insecurity: Not on file Transportation Needs: Not on file Physical Activity: Not on file Stress: Not on file Social Connections: Not on file Intimate Partner Violence: Not on file Vaping/E-liquid Use Vaping Use Never User Vaping/E-liquid Substances CBD No Nicotine No Other No Flavored No THC No Unknown No Immunizations (includes history and patient reported): Immunization History Administered Date(s) Administered COVID-19 (PFIZER), mRNA vacc, 30 mcg/0.3 mL (PF) 01/15/2021, 02/05/2021 Flu Vaccine Quadrivalent Recombinant =>18 YO PF [...] tablet Take two tablets by mouth daily. Review of Systems: Rest of 14 ROS is negative other than what is stated in HPI Physical Exam: Vital Signs: Last Filed In 24 Hours Vital Signs: 24 Hour Range General: Alert, cooperative, no distress, appears stated age Head: Normocephalic, without obvious abnormality, atraumatic Eyes: Conjunctivae/corneas clear. PERRL, EOMs intact. Fundi benign Throat: Lips, mucosa and tongue normal. Teeth and gums normal Neck: Supple, symmetrical, trachea midline, no adenopathy, thyroid: no enlargem ent/tenderness/nodules, no carotid bruit and no JVD Lungs: Clear to auscultation bilaterally Heart: Regular rate and rhythm, S1, S2 normal, no murmur, click rub or gallop Abdomen: Soft, non-tender. Bowel sounds normal. No masses. No organomegaly. Extremities: Extremities normal, atraumatic, no cyanosis or edema Peripheral pulses: 2+ and symmetric, all extremities Skin: Skin color, texture, turgor normal. No rashes or lesions Neurologic: Alert and oriented x 0 not answering orientation questions but can open eyes track and nod if in pain Lab/Radiology/Other Diagnostic Tests: 24-hour labs: No results found for this visit on 03/14/21 (from the past 24 miguel r(s)). Pertinent radiology reviewed. Dimitri Alvarez DO Pager [phone] DING CLERK documented in this encounter Procedure Notes * Larry Tatum MD - 03/22/2021 9:25 AM ENCODING CLERK Immediate Post Procedure Note Date: 03/22/2021 Attending Physician: Rc Performing Provider: Larry Tatum MD Consent: Consent obtained from patient. Time out performed: Consent obtained, correct patient verified, correct procedur e verified, correct site verified, patient marked as necessary. Pre/Post Procedure Diagnosis: ascites Indications: same Procedure(s): Paracentesis Findings: Moderate ascites Estimated Blood Loss: None/Negligible Specimen(s) Removed/Disposition: Yes, sent to pathology Complications: None Patient Tolerated Procedure: Well Post-Procedure Condition: stable Larry Tatum MD Pager [phone] DING CLERK * Kory Meneses MD - 03/15/2021 12:19 PM ENCODING CLERK Immediate Post Procedure Note Date: 03/15/2021 Attending Physician: Gideon Cad Detailer(s): None Procedure(s): Paracentesis Preprocedure/postprocedure diagnosis: Abdominal Ascites Description of procedure and procedural findings: Clear yellow ascites aspirated from the abdomen. Total volumes pending, please refer to separate dictation. Anesthesia: Local 10 mL 1% lidocaine without epinephrine Sedation/Medication Plan: Other Time out performed: Consent obtained, correct patient verified, correct procedur e verified, correct site verified, patient marked as necessary. Estimated Blood Loss: None/Negligible Specimen(s) Removed/Disposition: None Complications: None KORY MENESES MD DING CLERK documented in this encounter Consult Notes * Summer Du Jn, REHAB SPECIALIST-HAIR DRESSER - 03/21/2021 2:47 PM ENCODING CLERK Associated Order(s): CONSULT INTERVENTIONAL RADIOLOGY PHYSICIAN Pre Procedure History and Physical/Sedation Plan A full consult has been completed regarding this patient during this admission previously. Therefore this consult will only link to an updated pre-procedure H& P. For details of patient assessment, please see previous IR consult. Thank you. IR Pre-Procedure History and Physical/Sedation Plan Procedure Date: 03/21/2021 Planned Procedure(s): US guided paracentesis Procedural code status: Full Code Indication: Ascites Chief Complaint: See above History of Present Illness: Zaria Paulson is a 61 y.o. female with a history NICM, HFpEF, paroxysmal atrial fibrillation, mechanical aortic valve, cirrhosis of unclear etiology, CKD with recent fall who presents with Altered mental statu s. IR was consulted for paracentesis 03/22. Patient reports feeling well on exam today. Patient Active Problem List Diagnosis Date Noted [...] 11/04/2020 Hypoalbuminemia 10/23/2020 LEONORA (acute kidney injury) ([facility]) 10/21/2020 GI bleeding 10/20/2020 Cirrhosis (HCC) 09/07/2020 [...] Performed by Bao Hernández MD at [facility] COLONOSCOPY DIAGNOSTIC WITH SPECIMEN COLLECTION BY BRUSHING/ WASHING - FLEXI BLE N/A 06/06/2020 Performed by Bao Hernández MD at [facility] ANGIOGRAPHY CORONARY ARTERY WITH RIGHT AND LEFT HEART CATHETERIZATION N/A Performed by Higinio Clarke MD at [facility] CASHIER ASSISTANT POSSIBLE PERCUTANEOUS CORONARY STENT PLACEMENT WITH ANGIOPLASTY N/A Performed by Higinio Clarke MD at [facility] CASHIER ASSISTANT ESOPHAGOGASTRODUODENOSCOPY WITH SPECIMEN COLLECTION BY BRUSHING/ WASHING N/A 10/21/2020 Performed by Cosmo Gomez MD at [facility] SIGMOIDOSCOPY WITH CONTROL OF BLEEDING - FLEXIBLE N/A 10/21/2020 Performed by Cosmo Gomez MD at [facility] SIGMOIDOSCOPY WITH DIRECTED SUBMUCOSAL INJECTION - FLEXIBLE 10/21/2020 Performed by Cosmo Gomez MD at [facility] ESOPHAGOGASTRODUODENOSCOPY WITH CONTROL OF BLEEDING - FLEXIBLE N/A Performed by Bao Hernández MD at [facility] Social History Tobacco Use Smoking status: Never [...] 4,000 mg of acetaminophen in 24 hours. Past Week ascorbic acid (VITAMIN C) 500 mg tablet Take 500 mg by mouth daily. Past [place] bumetanide (BUMEX) 1 mg tablet Take five tablets by mouth twice daily for 36 0 days. 900 tablet 3 Past Week calcium carbonate (OS-KRUPA) 1250 mg tablet Take 1,250 mg by mouth daily. Pa st Week empagliflozin (JARDIANCE) 10 mg tablet Take one tablet by mouth daily. 90 ta blet 3 Past Week ferrous gluconate (FERGON) 240 mg (27 mg iron) tablet Take one tablet by devin th daily. (Patient taking differently: Take 240 mg by mouth at bedtime daily.) 9 0 tablet 1 Past Week fluticasone propionate (FLONASE) 50 mcg/actuation nasal spray, suspension Ap ply 1 spray to each nostril as directed daily. Shake bottle gently before using. Past Week hyoscyamine (ANASPAZ) 0.125 mg rapid dissolve tablet Place one tablet under tongue every 4 hours as needed. 180 tablet 0 Past Month levothyroxine (SYNTHROID) 75 mcg tablet Take 75 mcg by mouth daily 30 minute s before breakfast. Past Week midodrine (PROAMATINE) 5 mg tablet Take three tablets by mouth three times d aily. 270 tablet 3 Past Week MULTIVITAMIN PO Take 1 tablet by mouth daily. Past Week oxybutynin chloride (DITROPAN) 5 mg tablet Take one tablet by mouth daily. 1 80 tablet 0 Past Week pantop[address]ole [address] (PROTONIX) 40 mg tablet Take 40 mg by mouth twice daily. P ast Week sertraline (ZOLOFT) 100 mg tablet Take one tablet by mouth twice daily. 180 tablet 0 Past Week spironolactone (ALDACTONE) 25 mg tablet Take three tablets by mouth twice da [place]. Take with food. 540 tablet 3 Past Week VASCEPA 1 gram capsule TAKE 2 CAPSULES BY MOUTH TWICE DAILY WITH MEALS Pas t Week warfarin (COUMADIN) 1 mg tablet Take two tablets by mouth daily. (Patient ta brandin differently: Take 4 mg by mouth daily.) 120 tablet 0 Past Week No Known Allergies Review of Systems Constitutional: negative for fevers and chills Respiratory: negative for cough or dyspnea Gastrointestinal: negative for nausea, vomiting and abdominal pain Previous Personal Anesthetic/Sedation History: NA. Previous Family Anesthetic/Sedation History: NA. Physical Exam: Vital Signs: Last Filed In 24 Hours Vital Signs: 24 Hour Range BP: 98/64 (03/21 828) Temp: 36.7 C (98 F) (03/21 828) Pulse: 90 (03/21 828) Respirations: 16 PER MINUTE (03/21 828) SpO2: 94 % (03/21 828) BP: (94-106)/(64-71) Temp: [36.4 C (97.6 F)-36.8 C (98.3 F)] Pulse: [82-90] Respirations: [16 PER MINUTE] SpO2: [92 %-98 %] Intensity Pain Scale (Self Report): 8 (03/21/21 1430) General appearance: Alert and no distress noted. Neurologic: Grossly normal. Lungs: Non labored at rest. Abdomen: soft Status: Hysterectomy Sedation/Medication Plan: Lidocaine Discussion/Reviews: Physician has discussed risks and alternatives of this type of sedation and above planned procedures with patient Lab/Radiology/Other Diagnostic Tests: Labs: Pertinent labs reviewed Summer Du APRN-HAIR DRESSER Pager [phone] DING CLERK * Nasreen Alvarez MD - 03/19/2021 10:38 AM ENCODING CLERK Associated Order(s): CONSULT NEPHROLOGY PHYSICIAN Renal Consult Zaria Paulson Admission Date: 03/14/2021 Assessment and Plan Principal Problem: Encephalopathy Zaria Paulson is a 61 y.o. female LEONORA on CKD LEONORA likely related to fluid status and less likely HRS U Na 33 03/16 which is unlikely for HRS UTI - treated Acute encephalopathy- almost resolved Decompensated liver cirrhosis On Midodrine Chronic distolic heart failure NICM Parox A fib Mechanical aortic valve On lopressor and AC Pubic ramous fracture Hyponatremia: chronic. Baseline about 130 chronically Recommendations: Repeat urine analysis and urine sodium Check renal ultrasound Avoid nephrotoxic meds and contrast I would continue to hold diuretics Strict I's and O's We will restrict fluids to 1500 cc/day this includes p.o. intake and IV fluids i ncluding medications I would be cautious with albumin without giving diuretics as it may lead to pulm onary edema. At this point I think it is reasonable to hold albumin and diuretic s and follow kidney function. Patient is on SGLT2 inhibitors. These medications have considerable cardiorenal benefit. However they are known to precipitate urinary tract infection. If the p atient has recurrent urinary tract infection may reconsider the trade-off of adrián efit and harms and decide on the best management plan. Thank you for consulting nephrology and for allowing to participate in her care please do not hesitate to call me with any questions Nasreen Alvarez MD Pager [phone] History Reason for Consult: LEONORA on CKD HPI: Zaria Paulson is a 61 y.o. female with the past medical history of nonis chemic cardiomyopathy, heart failure with preserved ejection fraction, paroxysma l A. fib, mechanical aortic valve, liver cirrhosis, chronic kidney disease who w as admitted on March 14 for third mental status. Nephrology consult called for LEONORA on CKD. I looked through her record since May and she appears to have had multiple acute kidney injury episodes with t he considerable fluctuation in her creatinine. To the best I can tell her creat inine baseline is may be between one-point 0.2. However she has had at least 5 LEONORA with a creatinine that has reached 1.9 in the last 3 months. At this time and since her admission she had a creatinine of 1.9 on March 15, she had a peak creatinine of 1.65 on March 18, her creatinine today. I/O -1.5 03/16, -0.7 03/17, had some considerable stool output. Past Medical History Medical History: Diagnosis Date Cancer (HCC) Non- hodgkins lymphoma, chemo Disorder of thyroid gland Hypertension Iron deficiency anemia 08/03/2020 Iron deficiency anemia 08/03/2020 Surgical History: Procedure Laterality Date AORTIC VALVE REPLACEMENT 05/2009 mechanical ESOPHAGOGASTRODUODENOSCOPY WITH BIOPSY - FLEXIBLE N/A 06/06/2020 Performed by Bao Hernández MD at [facility] COLONOSCOPY DIAGNOSTIC WITH SPECIMEN COLLECTION BY BRUSHING/ WASHING - FLEXI BLE N/A 06/06/2020 Performed by Bao Hernández MD at [facility] ANGIOGRAPHY CORONARY ARTERY WITH RIGHT AND LEFT HEART CATHETERIZATION N/A Performed by Higinio Clarke MD at [facility] CASHIER ASSISTANT POSSIBLE PERCUTANEOUS CORONARY STENT PLACEMENT WITH ANGIOPLASTY N/A Performed by Higinio Clarke MD at [facility] CASHIER ASSISTANT ESOPHAGOGASTRODUODENOSCOPY WITH SPECIMEN COLLECTION BY BRUSHING/ WASHING N/A 10/21/2020 Performed by Cosmo Gomez MD at [facility] SIGMOIDOSCOPY WITH CONTROL OF BLEEDING - FLEXIBLE N/A 10/21/2020 Performed by Cosmo Gomez MD at [facility] SIGMOIDOSCOPY WITH DIRECTED SUBMUCOSAL INJECTION - FLEXIBLE 10/21/2020 Performed by Cosmo Gomez MD at [facility] ESOPHAGOGASTRODUODENOSCOPY WITH CONTROL OF BLEEDING - FLEXIBLE N/A Performed by Bao Hernández MD at [facility] Family History Family History Problem Relation Age of Onset COPD Mother Social History Social History Socioeconomic History Marital status: Spouse [...] file Social History Narrative Not on file Medications MEDSdapagliflozin, 10 mg, Oral, QDAY fluticasone propionate, 1 spray, Each Nostril, QDAY lactulose, 30 mL, Oral, Q4H levothyroxine, 75 mcg, Oral, QDAY 30 min before breakfast metoprolol tartrate, 12.5 mg, Oral, BID midodrine, 15 mg, Oral, TID oxybutynin chloride, 5 mg, Oral, TID pantoprazole DR, 40 mg, Oral, BID sertraline, 100 mg, Oral, BID warfarin, 2 mg, Oral, QHS IV MEDS Prn acetaminophen Q6H PRN 500 mg at 03/19/21 0334, warfarin, pharmacy to manage Per Pharmacy HOME MEDS Prior to Admission Medications Prescriptions Last Dose Informant Patient Reported? Taking? MULTIVITAMIN PO Past Week Med List Yes Yes Sig: Take 1 tablet by mouth daily. VASCEPA 1 gram capsule Past Week Med List Yes Yes Sig: TAKE 2 CAPSULES BY MOUTH TWICE DAILY WITH MEALS acetaminophen (TYLENOL EXTRA STRENGTH) 500 mg tablet Past Week Spouse Yes Yes Sig: Take 1,000 mg by mouth every 4 hours as needed for Pain. Max of 4,000 mg of acetaminophen in 24 hours. ascorbic acid (VITAMIN C) 500 mg tablet Past Week Med List Yes Yes Sig: Take 500 mg by mouth daily. bumetanide (BUMEX) 1 mg tablet Past Week Med List No Yes Sig: Take five tablets by mouth twice daily for 360 days. calcium carbonate (OS-KRUPA) 1250 mg tablet Past Week Med List Yes Yes Sig: Take 1,250 mg by mouth daily. empagliflozin (JARDIANCE) 10 mg tablet Past Week Med List No Yes Sig: Take one tablet by mouth daily. ferrous gluconate (FERGON) 240 mg (27 mg iron) tablet Past Week Med List No Yes Sig: Take one tablet by mouth daily. Patient taking differently: Take 240 mg by mouth at bedtime daily. fluticasone propionate (FLONASE) 50 mcg/actuation nasal spray, suspension Past [place] Med List Yes Yes Sig: Apply 1 spray to each nostril as directed daily. Shake bottle gently before using. hyoscyamine (ANASPAZ) 0.125 mg rapid dissolve tablet Past Month Med List No Yes Sig: Place one tablet under tongue every 4 hours as needed. levothyroxine (SYNTHROID) 75 mcg tablet Past Week Med List Yes Yes Sig: Take 75 mcg by mouth daily 30 minutes before breakfast. midodrine (PROAMATINE) 5 mg tablet Past Week Med List No Yes Sig: Take three tablets by mouth three times daily. oxybutynin chloride (DITROPAN) 5 mg tablet Past Week Med List No Yes Sig: Take one tablet by mouth daily. pantoprazole DR (PROTONIX) 40 mg tablet Past Week Med List Yes Yes Sig: Take 40 mg by mouth twice daily. rifAXIMin (XIFAXAN) 550 mg tablet No No Sig: Take one tablet by mouth twice daily. sertraline (ZOLOFT) 100 mg tablet Past Week Med List No Yes Sig: Take one tablet by mouth twice daily. spironolactone (ALDACTONE) 25 mg tablet Past Week Med List No Yes Sig: Take three tablets by mouth twice daily. Take with food. warfarin (COUMADIN) 1 mg tablet Past Week Med List No Yes Sig: Take two tablets by mouth daily. Patient taking differently: Take 4 mg by mouth daily. Facility-Administered Medications: None Review of Systems Constitutional: negative Eyes: negative Ears, nose, mouth, throat, and face: negative Respiratory: negative Cardiovascular: negative Gastrointestinal: negative Genitourinary:negative Integument/breast: negative Hematologic/lymphatic: negative Musculoskeletal:negative Neurological: negative Endocrine: negative Physical Exam Vital Signs: Last Filed In 24 Hours Vital Signs: 24 Hour Range BP: 102/63 (03/19 744) Temp: 36.5 C (97.7 F) (03/19 744) Pulse: 91 (03/19 744) Respirations: 18 PER MINUTE (03/19 744) SpO2: 98 % (03/19 744) BP: (98-102)/(63-74) Temp: [36.4 C (97.6 F)-36.7 C (98.1 F)] Pulse: [89-94] Respirations: [16 PER MINUTE-18 PER MINUTE] SpO2: [94 %-100 %] Intensity Pain Scale (Self Report): 7 (03/18/21 1146) Vitals: 03/14/212013 Weight: 54.8 kg (120 lb 13 oz) Intake/Output Summary (Last 24 hours) at 03/19/2021 1038 Last data filed at 03/18/2021 1759 Gross per 24 hour Intake 200 ml Output 375 ml Net -175 ml Gen: Alert and Oriented X3 but some flight of ideas, No Acute Distress HEENT: Sclera normal, MMM, EOMI Neck: supple, No LN CV: no JVD, mechanical valve click, irreg S1 s2 Pulm: Nl respiratory effort, CTA B/L GI: BS+ x4, non-tender to palpation, ascites Neuro: Grossly normal, moving all extremities, speech intact Ext: no edema Skin: no visible or palbable rash Labs Recent Labs 03/17/21 0416 03/18/21 1224 03/19/21 0638 NA 132* 130* 129* K 3.2* 3.6 3.8 CL 94* 97* 95* CO2 24 25 24 GAP 14* 8 10 BUN 25 26* 29* CR 1.56* 1.65* 1.50* GLU 109* 156* 74 CA 8.1* 8.7 8.7 ALBUMIN 3.1* 3.3* 3.3* Recent Labs 03/17/21 0416 03/18/21 0725 03/18/21 1224 03/19/21 0638 WBC 6.2 5.9 -- 6.3 HGB 12.4 12.9 -- 11.7* HCT 38.0 40.1 -- 35.6* PLTCT 288 241 -- 224 INR 4.1* -- 3.3* 2.5* AST 39 -- 31 28 ALT 16 -- 15 13 ALKPHOS 96 -- 101 99 Estimated Creatinine Clearance: 34.9 mL/min (A) (based on SCr of 1.5 mg/dL (H)). Vitals: 03/14/212013 Weight: 54.8 kg (120 lb 13 oz) No results for input(s): PHART, PO2ART in the last 72 hours. Invalid input(s): PC02A Radiology Pertinent radiology reviewed. DING CLERK * Christelle Dumont APRN-HAIR DRESSER - 03/15/2021 10:07 AM ENCODING CLERK Associated Order(s): CONSULT INTERVENTIONAL RADIOLOGY PHYSICIAN Interventional Radiology Consult Note with Pre-procedural History and Physical Admission Date: 03/14/2021 LOS: 1 day Principal Problem: Encephalopathy Reason for consult: Ascites. Evaluate for paracentesis. Assessment: - Admitted with Encephalopathy - Pt currently confused - Labs, medications, and allergies meet procedural protocol. - Platelet Count Date Value Ref Range Status 03/15/2021 226 150 - 400 K/UL Final ; INR Home Date Value Ref Range Status 02/27/2021 1.3 Final INR Date Value Ref Range Status 03/15/2021 2.3 (H) 0.8 - 1.2 Final Plan: - Will proceed with paracentesis. - Does not need to be kept NPO for this procedure, we use a local anesthetic onl y. Procedure: US guided paracentesis IR Pre Procedure Notes: none Chief Complaint: Ascites Previous Anesthetic/Sedation History: N/A-local anesthetic Code Status: Full Code History of present illness: Zaria Paulson is a 61 y.o. female patient with hx as above. IR consulted for image-guided paracentesis. Review of Systems JHONY d/t pt condition Medications Scheduled Meds:bumetanide (BUMEX) tablet 5 mg, 5 mg, Oral, BID cefTRIAXone (ROCEPHIN) IVP 1 g, 1 g, Intravenous, Q24H* dapagliflozin (FARXIGA) tablet 10 mg, 10 mg, Oral, QDAY fluticasone propionate (FLONASE) nasal spray 1 spray, 1 spray, Each Nostril, QDA Y lactulose oral solution 20 g, 30 mL, Oral, Q4H levothyroxine (SYNTHROID) tablet 75 mcg, 75 mcg, Oral, QDAY 30 min before breakf ast midodrine (PROAMATINE) tablet 15 mg, 15 mg, Oral, TID oxybutynin chloride (DITROPAN) tablet 5 mg, 5 mg, Oral, TID pantoprazole DR (PROTONIX) tablet 40 mg, 40 mg, Oral, BID sertraline (ZOLOFT) tablet 100 mg, 100 mg, Oral, BID spironolactone (ALDACTONE) tablet 75 mg, 75 mg, Oral, BID warfarin (COUMADIN) tablet 4 mg, 4 mg, Oral, QHS WATER FOR INJECTION, STERILE IJ SOLN (Cabinet Override), , , NOW Continuous Infusions: PRN and Respiratory Meds: Objective Vital Signs: Last Filed Vital Signs: 24 Miguel r Range BP: 100/66 (03/14 2345) Temp: 36.9 C (98.4 F) (03/14 2345) Pulse: 103 (03/14 2345) Respirations: 22 PER MINUTE (03/14 2345) SpO2: 98 % (03/14 2345) BP: (100-105)/(59-66) Temp: [36.4 C (97.6 F)-36.9 C (98.4 F)] Pulse: [103] Respirations: [22 PER MINUTE] SpO2: [95 %-98 %] Intensity Pain Scale (Self Report): Asleep (03/14/21 2345) Vitals: 03/14/212013 Weight: 54.8 kg (120 lb 13 oz) Intake/Output Summary: (Last 24 hours) Intake/Output Summary (Last 24 hours) at 03/15/2021 1008 Last data filed at 03/15/2021 0800 Gross per 24 hour Intake Output 750 ml Net -750 ml Physical Exam General appearance: lethargic Neurologic: Encephalopathic Lungs: Nonlabored with normal effort Abdomen: distended Extremities: extremities normal, atraumatic, no cyanosis or edema Anesthesia Classification: N/A-local anesthetic Pre procedure anxiolysis plan: Lidocaine Intra-procedural Sedation/Medication Plan: Lidocaine Discussion/Reviews: Physician has discussed risks and alternatives of this type of sedation and above planned procedures with significant other NPO Status: N/A-local anesthestic Status: N/A-local anesthetic and U/S guided Lab/Radiology/Other Diagnostic Tests: Labs: Pertinent labs reviewed Radiology: Reviewed. We appreciate being able to participate in this patient's care. Please page with any questions or concerns. HOSSEIN Hector Pgr [phone] IR Team Pager [phone] (After-hours and Weekends) DING CLERK * Gabriel St MD - 03/15/2021 7:31 AM ENCODING CLERK Associated Order(s): CONSULT HEPATOLOGY PHYSICIAN Hepatology Consult Note Patient Name:Zaria Paulson Admission Date: 03/14/2021 7:50 PM Principal Problem: Encephalopathy History of Present Illness/Subjective: Zaria Paulson is a 61 y.o. 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 fib, status post mechanical aortic valve on warfarin who was transferred from [facility] with encephalopathy. Hepatology consulted for further prachi luation and management. Patient is encephalopathic and not responding appropriately to questions. Her h usband is present at the bedside and provides majority of the history. Reported ly, patient has become more forgetful over the past 1 to 2 weeks. She has suffe red 2 falls in the past week. Her first fall was unwitnessed and patient's husb and came home to find her on the floor next to the bed. She had an additional f all over the past weekend and landed on her sacrum. She was prescribed hydrocod one and baclofen by her PCP on 03/12 for pain management. She took 1 dose of hy drocodone as well as her cyclobenzaprine on 03/12 and became more confus ed prompting presentation to OSH. CT head without contrast and CT A/P at OSH di d not show any acute process. She was transferred for further management. On a dmission, urinalysis was notable for positive nitrites, packed WBCs, and positiv e bacteria. She was started on ceftriaxone for UTI. Currently, patient is unable to answer orienting questions. She denies any dysu alysha or increased frequency. Patient is looking towards her to answer qu estions after being asked. Assessment/ Plan: Decompensated cardiac cirrhosis: -MELD-Na score: MELD-Na score: 16 at 03/14/2021 9:10 PM MELD score: 16 at 03/14/2021 9:10 PM Calculated from: Serum Creatinine: 1.02 MG/DL at 03/14/2021 9:10 PM Serum Sodium: 140 MMOL/L (Using max of 137 MMOL/L) at 03/14/2021 9:10 PM Total Bilirubin: 1.2 MG/DL at 03/14/2021 9:10 PM INR(ratio): 2.3 at 03/12/2021 12:00 AM Age: 61 years -Follows with Dr. Doe. Not a transplant candidate due to comorbidities. -MELD elevated due to warfarin use. -Decompensated by ascites. Patient has evidence of encephalopathy on exam. Hepatic encephalopathy: No prior history. Not on DIE CAST ENGINEER medications. Evidence of e ncephalopathy on exam likely in the setting of UTI. Lactulose initiated on 02/22. Variceal screening: Last EGD in 12/2020 with trace esophageal varices. No gastri c varices. Moderate portal hypertensive gastropathy in entire stomach. Fluid/volume status: Ascites present. On DIE CAST ENGINEER bumex 5 mg BID and spironolactone 7 5 mg BID. Diuretics managed by Cardiology. Has required 3 therapeutic paracentes es this month. HCC screening: Abdominal U/S with no hepatic mass in 11/2020. AFP 1.4 in 10/2020. HFpEF: S/p mAVR: Severe tricuspid regurgitation: Pulmonary HTN: This is a 61-year-old female with history of decompensated cardiac cirrhosis who was transferred from [facility] with encephalopathy. She has no overt signs of bleedi ng. Urinalysis is suggestive of UTI and patient has been started on ceftriaxone . Would recommend titration of lactulose to 3-4 bowel movements daily and compl etion of infectious work-up. Recommendations: 1) low-sodium, high-protein diet 2) check blood cultures x2, diagnostic paracentesis with cell count and differen tial, Gram stain and culture, total protein, and albumin 3) follow-up urine cultures 4) continue DIE CAST ENGINEER Bumex 5 mg twice daily. Would increase spironolactone to 100 mg twice daily. 5) continue lactulose. Titrate to 3-4 bowel movements daily. 6) trend CMP and INR daily Patient seen/discussed with Dr. Gomez. Tamir St GI & Hepatology Fellow 03/15/2021 7:31 AM PMH: Medical History: Diagnosis Date Cancer (HCC) [...] tablets by mouth daily. 120 tablet 0 PSH: Surgical History: Procedure Laterality Date AORTIC VALVE REPLACEMENT 05/2009 mechanical ESOPHAGOGASTRODUODENOSCOPY WITH BIOPSY - FLEXIBLE N/A 06/06/2020 Performed by Bao Hernández MD at [facility] COLONOSCOPY DIAGNOSTIC WITH SPECIMEN COLLECTION BY BRUSHING/ WASHING - FLEXI BLE N/A 06/06/2020 Performed by Bao Hernández MD at [facility] ANGIOGRAPHY CORONARY ARTERY WITH RIGHT AND LEFT HEART CATHETERIZATION N/A Performed by Higinio Clarke MD at [facility] CASHIER ASSISTANT POSSIBLE PERCUTANEOUS CORONARY STENT PLACEMENT WITH ANGIOPLASTY N/A Performed by Higinio Clarke MD at [facility] CASHIER ASSISTANT ESOPHAGOGASTRODUODENOSCOPY WITH SPECIMEN COLLECTION BY BRUSHING/ WASHING N/A 10/21/2020 Performed by Cosmo Gomez MD at [facility] SIGMOIDOSCOPY WITH CONTROL OF BLEEDING - FLEXIBLE N/A 10/21/2020 Performed by Cosmo Gomez MD at [facility] SIGMOIDOSCOPY WITH DIRECTED SUBMUCOSAL INJECTION - FLEXIBLE 10/21/2020 Performed by Cosmo Gomez MD at [facility] ESOPHAGOGASTRODUODENOSCOPY WITH CONTROL OF BLEEDING - FLEXIBLE N/A Performed by Bao Hernández MD at [facility] SH: Social History Socioeconomic History Marital status: Spouse [...] of Onset COPD Mother Review of Systems: A ten point ROS was taken and is negative except otherwise mentioned in the HPI. Please see HPI for additional pertinent documentation Physical Exam: Vitals: 03/14/21201303/14/21 2345 BP: 105/59 100/66 BP Source: Arm, Right Upper Arm, Right Upper Pulse: 103 103 Temp: 36.4 C (97.6 F) 36.9 C (98.4 F) SpO2: 95% 98% Weight: 54.8 kg (120 lb 13 oz) Constitutional- Vitals above, encephalopathic, not responding appropriately to q uestions, unable to follow commands to assess for asterixis Head - Normocephalic, atraumatic. Eyes - EOMI grossly. No icterus or injection. Ears, nose, mouth, throat- No oral ulcer or bleeding. Neck - No swelling or tracheal deviation. Respiratory - Symmetric chest rise, no increased work of breathing. Cardiovascular - Peripheral pulses intact, no pedal edema. Gastrointestinal- Non-TTP. No hepatospenomegaly. Skin - No exposed rash, lesion. Neurologic - No CN deficit, encephalopathic Labs/Imaging: Pertient labs/imaging were reviewed on initiation of progress note. DING CLERK Associated attestation - Cosmo Gomez MD - 03/15/2021 3:45 PM ENCODING CLERK ATTESTATION I personally performed the turpin portions of the E/M visit, discussed case with e Resident/Fellow/Nurse Practitioner and concur with documentation of history, p hysical exam, assessment, and treatment plan unless otherwise noted. 61 years old female with past medical history of HFpEF, mechanical aortic valve, severe tricuspid regurgitation and cardiogenic cirrhosis decompensated with the development of ascites (fluid analysis compatible with CHF). The patient was admitted with altered mental status after she took Flexeril + No rco for pain due to multiple falls. She was also noted to have UTI and started antibiotics. Physical exam: Alert and oriented x2-3 Asterixis + MELD-Na score: 17 at 03/15/2021 6:58 AM MELD score: 17 at 03/15/2021 6:58 AM Calculated from: Serum Creatinine: 0.96 MG/DL (Using min of 1 MG/DL) at 03/15/2021 6:58 AM Serum Sodium: 141 MMOL/L (Using max of 137 MMOL/L) at 03/15/2021 6:58 AM Total Bilirubin: 1.3 MG/DL at 03/15/2021 6:58 AM INR(ratio): 2.3 at 03/15/2021 6:58 AM Age: 61 years Impression/Assessment/Plan/Recommendations: Encephalopathy, likely hepatic triggered by narcotics, UTI Recurrent cardiac ascites Cardiogenic cirrhosis Agree with infectious work-up Follow-up ascitic fluid analysis Resume diuretics. Suggest increasing Aldactone to 100 mg twice daily Continue lactulose with target 3 bowel movements a day Cosmo Gomez MD Gastroenterology and Transplant Hepatology 03/15/2021 documented in this encounter Nursing Notes * Caitlin Esparza, RN - 03/20/2021 2:21 PM ENCODING CLERK INPATIENT HEPATOLOGY CARE COORDINATION Patient: Zaria Paulson 03/20/2021 Admit Date:03/14/2021 Discharge Dates: TBD Discharge Disposition:Anticipate Facility [place] Rounding Physician: Dr Sesar Hector Brief narrative regarding inpatient admission: 61 y.o.femalewith history of cardiac cirrhosis decompensated by ascites, A. fib, status post mechanical aorti c valve on warfarin who was transferred from [facility] with encephalopathy. Hepatolo gy consulted for further evaluation and management. Hepatology Follow-ups: No changes made to DIE CAST ENGINEER scheduled Hepatology follow up. Di uretics and shalonda managed by Cardiology per patient. Appointment Date/Time: 06/08/2021 @ 1030 Appointment Provider: Jeanette Garcia APRN (Dr Orquidea Doe[facility] clinic) Pharmacy Needs : Lactulose/Xifaxan started during this admit. Verified both are affordable at [facility]. Reviewed lactulose titration in great detail. Encouraged 3 Vel wel movements daily. Provided patient with laminated chart to keep track of shayy y lactulose and bowel movements. Reviewed Xifaxan indication and dose. Encouraged patient to reach out to Dr Enedina elmore's clinic for any refills of these medications in the future. Reviewed triggers of HE including medications, dehydration, and infection. Patie nt verbalized understanding. ~Will be available if patient needs anything from a hepatology standpoint while in the hospital Friday through Friday 7am-5pm ~Discharge information to be sent to the hepatology provider & team that will follow with patient in the outpatient clinic. Rachael Esparza RN-BSN Inpatient Hepatology Nurse Coordinator Pgr: [phone]- [phone] DING CLERK * Dimitri Alvarez DO - 03/14/2021 9:39 PM ENCODING CLERK Patient moved from Swing 3 to Med B. Night 1 will take call overnight until 080 0 Dimitri Alvarez DO [id number] DING CLERK documented in this encounter Miscellaneous Notes * Patient Instructions - Kamille Landis RN - 03/22/2021 8:40 AM ENCODING CLERK Images from the original note were [...] to the procedu re performed at the [facility], call [phone] Friday-Friday from 7 -5p. After-hours and weekends, please call [phone] and ask for the [facility] Nurse on-call. You or your caregiver should call [phone] for any severe symptoms such as excessive bleeding, severe dizziness, trouble breathing or loss of consciousness. IR-PARACENTESIS A paracentesis is the removal of [...] a priority for both you and your y sicians. Some soreness or tenderness at the [...] to the procedu re performed at the [facility], call [phone] Friday-Friday from 7 -5p. After-hours and weekends, please call [phone] and ask for the [facility] Nurse on-call. You or your caregiver should call [phone] for any severe symptoms such as excessive bleeding, severe dizziness, trouble breathing or loss of consciousness. T * Drug Level - Bernadine Banegas PHARMD - 03/20/2021 1:40 PM ENCODING CLERK Pharmacy Warfarin Note Subjective: Pharmacy consulted to assist with management of warfarin therapy. Objective: Zaria Paulson is a 61 y.o. female receiving warfarin for [facility] AVR, Afib . Current Warfarin Orders Medication Dose Route Frequency warfarin (COUMADIN) tablet 3 mg 3 mg Oral QHS warfarin, pharmacy to manage 1 each Service Per Pharmacy Bridge therapy: enox. Warfarin dose for Ms. Paulson prior to admission: 4mg nightly INR Date/Time Value Ref Range Status 03/20/2021 1017 1.8 (H) 0.8 - 1.2 Final 03/19/2021 0638 2.5 (H) 0.8 - 1.2 Final 03/18/2021 1224 3.3 (H) 0.8 - 1.2 Final Drug interaction(s): none. Assessment: [facility] . INR: INR (no units) Date/Time Value 03/20/2021 1017 1.8 (H) INR Home (no units) Date/Time Value 02/27/2021 0000 1.3 INR POC (no units) Date/Time Value 11/21/2020 0824 1.7 (H) Plan: 1. INR now subtherapeutic likely due to holding dose on 03/17. Will increase d ose to 3mg by mouth at bedtime. 2. Next INR: Tomorrow 3. Pharmacy will [...] therapy will no longer be managed by Mahad Banegas PHARMD 03/20/2021 DING CLERK * Care Plan - Huyen Patel RN - 03/18/2021 4:44 PM ENCODING CLERK Problem: Discharge Planning Goal: Participation in plan of care Outcome: Goal Ongoing Goal: Knowledge regarding plan of care Outcome: Goal Ongoing Goal: Prepared for discharge Outcome: Goal Ongoing Problem: Skin Integrity Goal: Skin integrity intact Outcome: Goal Ongoing Goal: Healing of skin (Wound & Incision) Outcome: Goal Ongoing Goal: Healing of skin (Pressure Injury) Outcome: Goal Ongoing Problem: Infection, Risk of, Urinary Catheter-Associated Urinary Tract Infection Goal: Absence of urinary catheter-associated infection Outcome: Goal Ongoing DING CLERK documented in this encounter Plan of Treatment Care Team Description Date Type Specialty Nitish Starr MD [address] [facility] [place] [address] Kory Meneses MD [address] [place] [address] Clarissa Harmon Stephanie, RT(R)(),LRT 04/16/2021 Hospital Radiology Encounter Date/Time Name Type Priority Associated Diag noses 03/14/2021 10:06 PM ENCODING CLERK UA REFLEX LABEL Lab Routine Order Schedule Name Type Priority Associated Diag noses Once a Week Auto for 4 Occurrences start ing 03/22/2021 until 05/21/2021, 1 completed COMPREHENSIVE METABOLIC Lab Routine Chroni c heart failure PANEL with preserved ejection fraction (HCC) Other cirrhosis of liver (HCC) Encephalopathy Expected: 03/26/2021 (Approximate), Expi res: 04/22/2021 PROTIME INR (PT) Lab Routine Chronic heart failure with preserved ejection fraction (HCC) Other cirrhosis of liver (HCC) Encephalopathy documented as of this encounter Goals Goal Patient Associated Recent Progress Patient-Stat Aut hor Goal Type Problems ed? Improve [facility] On track (03/20/2021 Yes Sheldon, 1:41 PM ENCODING CLERK) CHRYSTAL Singh Improve [facility] On track (03/20/2021 Yes Sheldon, 1:41 PM ENCODING CLERK) CHRYSTAL Singh Note: "To get better and stronger." documented as of this encounter Procedures Comments Procedure Name Priority Date/Time Associated Diag nosis HC PT(INR) Routine 03/22/2021 11:46 AM ENCODING CLERK HC CBC W/ AUTOMATED DIFF Routine 03/22/2021 11:46 AM ENCODING CLERK HC COMPREHENSIVE Routine 03/22/2021 METABOLIC PANEL 11:46 AM ENCODING CLERK HC TOTAL PROTEIN-FLUID Routine 03/22/2021 9:24 AM ENCODING CLERK HC ALBUMIN, FLUID Routine 03/22/2021 9:24 AM ENCODING CLERK GRAM STAIN Routine 03/22/2021 9:24 AM ENCODING CLERK CULTURE-WOUND/TISSUE/FLUI Routine 03/22/2021 D(AEROBIC 9:24 AM ENCODING CLERK ONLY)W/SENSITIVITY CULTURE-ANAEROBIC Routine 03/22/2021 9:24 AM ENCODING CLERK HC CELL COUNT Routine 03/22/2021 W/DIFF-FLUIDS 9:24 AM ENCODING CLERK IR PARACENTESIS Routine 03/22/2021 DIAGNOSTIC + THERAPEUTIC 9:21 AM ENCODING CLERK COVID-19 (SARS-COV-2) PCR Routine 03/21/2021 4:34 PM ENCODING CLERK HC PT(INR) Routine 03/21/2021 5:49 AM ENCODING CLERK HC CBC W/ AUTOMATED DIFF Routine 03/21/2021 5:49 AM ENCODING CLERK HC COMPREHENSIVE Routine 03/21/2021 METABOLIC PANEL 5:49 AM ENCODING CLERK HC PT(INR) Routine 03/20/2021 10:17 AM ENCODING CLERK HC CBC W/ AUTOMATED DIFF Routine 03/20/2021 10:17 AM ENCODING CLERK HC COMPREHENSIVE Routine 03/20/2021 METABOLIC PANEL 10:17 AM ENCODING CLERK US RENAL BLADDER COMPLETE Routine 03/19/2021 1:54 PM ENCODING CLERK HC UREA NITROGEN-URINE Routine 03/19/2021 12:00 PM ENCODING CLERK HC SODIUM-URINE Routine 03/19/2021 12:00 PM ENCODING CLERK HC CREATININE-URINE Routine 03/19/2021 12:00 PM ENCODING CLERK UA REFLEX LABEL Routine 03/19/2021 11:59 AM ENCODING CLERK URINALYSIS MICROSCOPIC Routine 03/19/2021 REFLEX TO CULTURE 11:59 AM ENCODING CLERK HC URINALYSIS UAR Routine 03/19/2021 11:59 AM ENCODING CLERK CULTURE-URINE 03/19/2021 W/SENSITIVITY 11:59 AM ENCODING CLERK HC PT(INR) Routine 03/19/2021 6:38 AM ENCODING CLERK HC CBC W/ AUTOMATED DIFF Routine 03/19/2021 6:38 AM ENCODING CLERK HC COMPREHENSIVE Routine 03/19/2021 METABOLIC PANEL 6:38 AM ENCODING CLERK HC PT(INR) Routine 03/18/2021 12:24 PM ENCODING CLERK HC COMPREHENSIVE Specimen 03/18/2021 METABOLIC PANEL in Lab 12:24 PM ENCODING CLERK CONSULT VASCULAR ACCESS Routine 03/18/2021 TEAM 11:57 AM ENCODING CLERK HC CBC W/ AUTOMATED DIFF Routine 03/18/2021 7:25 AM ENCODING CLERK HC PT(INR) Routine 03/17/2021 4:16 AM ENCODING CLERK HC CBC W/ AUTOMATED DIFF Routine 03/17/2021 4:16 AM ENCODING CLERK HC COMPREHENSIVE Routine 03/17/2021 METABOLIC PANEL 4:16 AM ENCODING CLERK POC GLUCOSE 03/16/2021 4:52 PM ENCODING CLERK EXTRA URINE CHAVARRIA TOP 03/16/2021 12:48 PM ENCODING CLERK URINE TIGER TOP TUBE 03/16/2021 12:48 PM ENCODING CLERK HC UREA NITROGEN-URINE STAT 03/16/2021 12:48 PM ENCODING CLERK HC SODIUM-URINE Routine 03/16/2021 12:48 PM ENCODING CLERK HC CREATININE-URINE Routine 03/16/2021 12:48 PM ENCODING CLERK HC PT(INR) Routine 03/16/2021 7:55 AM ENCODING CLERK HC CBC W/ AUTOMATED DIFF Routine 03/16/2021 7:55 AM ENCODING CLERK HC COMPREHENSIVE Routine 03/16/2021 METABOLIC PANEL 7:55 AM ENCODING CLERK IR PARACENTESIS Routine 03/15/2021 DIAGNOSTIC + THERAPEUTIC 12:17 PM ENCODING CLERK HC TOTAL PROTEIN-FLUID Specimen 03/15/2021 in Lab 12:08 PM ENCODING CLERK HC ALBUMIN, FLUID Specimen 03/15/2021 in Lab 12:08 PM ENCODING CLERK GRAM STAIN 03/15/2021 12:08 PM ENCODING CLERK CULTURE-WOUND/TISSUE/FLUI Routine 03/15/2021 D(AEROBIC 12:08 PM ENCODING CLERK ONLY)W/SENSITIVITY HC CELL COUNT Routine 03/15/2021 W/DIFF-FLUIDS 12:08 PM ENCODING CLERK CULTURE-BLOOD Routine 03/15/2021 W/SENSITIVITY 10:00 AM ENCODING CLERK CULTURE-BLOOD Routine 03/15/2021 W/SENSITIVITY 9:50 AM ENCODING CLERK HC PT(INR) Routine 03/15/2021 6:58 AM ENCODING CLERK HC CBC W/ AUTOMATED DIFF Routine 03/15/2021 6:58 AM ENCODING CLERK HC COMPREHENSIVE Routine 03/15/2021 METABOLIC PANEL 6:58 AM ENCODING CLERK URINALYSIS MICROSCOPIC Routine 03/14/2021 REFLEX TO CULTURE 10:06 PM ENCODING CLERK HC URINALYSIS UAR Routine 03/14/2021 10:06 PM ENCODING CLERK CULTURE-URINE 03/14/2021 W/SENSITIVITY 10:06 PM ENCODING CLERK COVID-19 (SARS-COV-2) PCR Routine 03/14/2021 9:10 PM ENCODING CLERK HC *FREE T4 (REFLEX) Routine 03/14/2021 9:10 PM ENCODING CLERK HC TSH SCREEN Routine 03/14/2021 9:10 PM ENCODING CLERK HC CBC W/ AUTOMATED DIFF Routine 03/14/2021 9:10 PM ENCODING CLERK HC AMMONIA Routine 03/14/2021 9:10 PM ENCODING CLERK HC COMPREHENSIVE Routine 03/14/2021 METABOLIC PANEL 9:10 PM ENCODING CLERK CHEST SINGLE VIEW Routine 03/14/2021 9:04 PM ENCODING CLERK TELEMETRY STRIPS-SCAN 03/14/2021 12:00 AM ENCODING CLERK ECG-SCAN 03/14/2021 12:00 AM ENCODING CLERK documented in this encounter Results * (ABNORMAL) COMPREHENSIVE METABOLIC PANEL (04/06/2021 1:03 PM ENCODING CLERK) Sodium 134 (L) 137 - 147 MMOL/L [...] P shane Number [facility] [address] [place] [address] * (ABNORMAL) CBC AND DIFF (03/22/2021 11:46 AM ENCODING CLERK) White Blood 5.0 4.5 - 11.0 K/UL [...] Count Specimen Blood (substance) Performing Organization Address City/[facility]/ZIP Code P shane Number [facility] [address] [place] [address] * (ABNORMAL) COMPREHENSIVE METABOLIC PANEL (03/22/2021 11:46 AM ENCODING CLERK) Sodium 132 (L) 137 - 147 MMOL/L [facility] Potassium 3.9 3.5 - 5.1 MMOL/L [facility] Chloride 102 98 - 110 MMOL/L [facility] Glucose 91 70 - 100 MG/DL [facility] Blood Urea 37 (H) 7 - 25 MG/DL [facility] Nitrogen Creatinine 1.68 (H) 0.4 - 1.00 MG/DL [facility] Calcium 8.4 (L) 8.5 - 10.6 MG/DL [facility] Total Protein 6.0 6.0 - 8.0 G/DL [facility] Total Bilirubin 0.6 0.3 - 1.2 MG/DL [facility] Albumin 3.7 3.5 - 5.0 G/DL [facility] Alk Phosphatase 152 (H) 25 - 110 U/L [facility] AST (SGOT) 29 7 - 40 U/L [facility] CO2 21 21 - 30 MMOL/L [facility] ALT (SGPT) 12 7 - 56 U/L [facility] Anion Gap 9 3 - 12 [facility] eGFR 35 (L)Comment: eGFR calculated >60 mL/min [facility] using the CKD-EPIcr_R equation Specimen Blood (substance) Performing Organization Address City/[facility]/ZIP Code P shane Number [facility] [address] [place] [address] * (ABNORMAL) PROTIME INR (PT) (03/22/2021 11:46 AM ENCODING CLERK) INR 1.8 (H) 0.8 - 1.2 [facility] Specimen Blood (substance) Performing Organization Address [facility]/ZIP Code P shane Number [facility] [address] [place] [address] * GRAM STAIN (03/22/2021 9:24 AM ENCODING CLERK) Battery Name GRAM STAIN [facility] Report Status FINAL 03/22/2021 [facility] Specimen FLUID PERITONEAL [facility] Description Special No special requests [facility] Requests Gram Stain FEW [facility] NEUTROPHILS Gram Stain MANY [facility] RBC'S Gram Stain NO ORGANISMS SEEN [facility] Specimen Fluid Performing Organization Address [facility] P shane Number [facility] MAIN LAB [address] [place] [address] * CULTURE-ANAEROBIC (03/22/2021 9:24 AM ENCODING CLERK) Battery Name ANAEROBE CULTURE [facility] Report Status FINAL 03/27/2021 [facility] Specimen FLUID PERITONEAL [facility] Description Special No special requests [facility] Requests Culture NO ANAEROBES ISOLATED [facility] Specimen Fluid Performing Organization Address [facility] P shane Number [facility]IN [facility] [address] [place] [phone] * CULTURE-WOUND/TISSUE/FLUID(AEROBIC ONLY)W/SENSITIVITY (03/22/2021 9:24 AM ENCODING CLERK) Battery Name ROUTINE CULTURE [facility] Report Status FINAL 03/27/2021 [facility] Specimen FLUID PERITONEAL [facility] Description Special No special requests [facility] Requests Direct Gram FEW [facility] Stain NEUTROPHILS Direct Gram MANY [facility] Stain RBC'S Direct Gram NO ORGANISMS SEEN [facility] Stain Culture NO GROWTH 5 DAYS [facility] Specimen Fluid Performing Organization Address [facility] Code P shane Number MAIN LAB [address] [place] [address] * PERITONEAL FLUID TOTAL PROTEIN (03/22/2021 9:24 AM ENCODING CLERK) Peritoneal 3.7 g/dL MAIN LAB Fluid Total Comment: Protein Ascites fluid total prote in >1g/dL favors secondary bacterial peritonitis over spontaneous bacterial peritonitis Specimen Peritoneal fluid (substance) Performing Organization Address [facility]/ZIP [facility] P shane Number MAIN LAB [address] [place] [address] * PERITONEAL FLUID ALBUMIN (03/22/2021 9:24 AM ENCODING CLERK) Peritoneal 2.2 g/dL [facility] Fluid Albumin Comment: Serum to ascites albumin gradient (SAAG) >1.1 g/d is seen in portal hypertension. SAAG <1.1 g/dL is seen in cancer and infections Specimen Peritoneal fluid (substance) Performing Organization Address City/[facility]/ZIP Code P shane Number [facility] MAIN [facility] [address] [place] [address] * CELL COUNT W/DIFF-FLUIDS (03/22/2021 9:24 AM ENCODING CLERK) White Blood 130 /UL [facility] Cells,Fluid Red Blood 6,300 /UL [facility] Cells,Fluid Lymphocytes,Flu 70 % [facility] id Monocyte/Histo, 29 % [facility] Fluid Eosinophils, 1 [...] - Peritoneal fluid (substance) Performing Organization Address [facility] P shane Number [facility] [address] [place] [phone] * IR PARACENTESIS DIAGNOSTIC + THERAPEUTIC (03/22/2021 9:21 AM ENCODING CLERK) Modality Anatomical Region Laterality Ultrasound Specimen Impressions [facility] RAD RESULTS - 03/22/2021 9:42 AM ENCODING CLERK Ultrasound-guided diagnostic and therapeutic paracentesis yielding 2.0 L of ascites Finalized by Tae Tatum M.D. on 03/22/2021 9:42 AM. Dictated by Tae Tatum M.D. on 03/22/2021 9:41 AM. Narrative [facility] RAD RESULTS - 03/22/2021 9:42 AM ENCODING CLERK Ultrasound-guided diagnostic and therapeutic paracentesis CLINICAL HISTORY: Ascites TECHNIQUE AND FINDINGS: ILarry M.D., the attending radiologist, was present for the procedure, personally reviewed the images, and formulated the interpretations and opinions expressed in this report. After informed written consent was obtained, the patient was brought to the ultrasound suite and placed in the supine position. The right abdomen was prepped and draped in the usual sterile fashion. 2 lidocaine was used to anesthetize the skin and a 19-gauge Yueh needle was advanced into the ascites under ultrasound guidance. Real-time grayscale sonographic imaging of the right abdomen was performed demonstrating moderate abdominal ascites. An image was saved and sent to PACS. 2 L of ascites was removed and a sample sent to lab for analysis. The needle was removed and a sterile dressing was applied. The patient tolerated the procedure well and was taken to the recovery area in unchanged condition. MEDICATIONS: None Procedure Note Larry Tatum MD - 03/22/2021 Ultrasound-guided diagnostic and therapeutic paracentesis CLINICAL HISTORY: Ascites TECHNIQUE AND FINDINGS: Larry Toribio M.D., the attending radiologist, was present for the procedure, personally reviewed the images, and formulated the interpretations and opinions expressed in this report. After informed written consent was obtained, the patient was brought to the ultrasound suite and placed in the supine position. The right abdomen was prepped and draped in the usual sterile fashion. 2 lidocaine was used to anesthetize the skin and a 19-gauge Yueh needle was advanced into the ascites under ultrasound guidance. Real-time grayscale sonographic imaging of the right abdomen was performed demonstrating moderate abdominal ascites. An image was saved and sent to PACS. 2 L of ascites was removed and a sample sent to lab for analysis. The needle was removed and a sterile dressing was applied. The patient tolerated the procedure well and was taken to the recovery area in unchanged condition. MEDICATIONS: None IMPRESSION Ultrasound-guided diagnostic and therapeutic paracentesis yielding 2.0 L of ascites Finalized by Tae Tatum M.D. on 03/22/2021 9:42 AM. Dictated by Tea Tatum M.D. on 03/22/2021 9:41 AM. Performing Organization Address City/State/ZIP Code P shane Number K[facility] RAD RESULTS * COVID-19 (SARS-COV-2) PCR (03/21/2021 4:34 PM ENCODING CLERK) COVID-19 FLOCKED SWAB MAIN LAB (SARS-CoV-2) NASOPHARYNGEAL PCR Source COVID-19 NOT DETECTED DN-NOT DETECTED MAIN LAB (SARS-CoV-2) Comment: PCR This assay [...] performance characteristics have been verified by the [facility]. Fact sheet for providers: https://www.fda.gov/media/7381 85/download Fact sheet for patients: https://www.fda.gov/media/1625 87/download Specimen Flocked Swab - Nasopharyngeal structure (body structure) Performing Organization Address City/State/ZIP Code P shane Number [facility] MAIN [facility] [address] [place] [address] * (ABNORMAL) COMPREHENSIVE METABOLIC PANEL (03/21/2021 5:49 AM ENCODING CLERK) Sodium 131 (L) 137 - 147 MMOL/L [facility] Potassium 3.3 (L) 3.5 - 5.1 MMOL/L [facility] Chloride 98 98 - 110 MMOL/L [facility] Glucose 88 70 - 100 MG/DL [facility] Blood Urea 35 (H) 7 - 25 MG/DL [facility] Nitrogen Creatinine 1.56 (H) 0.4 - 1.00 MG/DL [facility] Calcium 8.5 8.5 - 10.6 MG/DL [facility] Total Protein 5.7 (L) 6.0 - 8.0 G/DL [facility] Total Bilirubin 0.5 0.3 - 1.2 MG/DL [facility] Albumin 3.5 3.5 - 5.0 G/DL [facility] Alk Phosphatase 132 (H) 25 - 110 U/L [facility] AST (SGOT) 27 7 - 40 U/L [facility] CO2 22 21 - 30 MMOL/L [facility] ALT (SGPT) 11 7 - 56 U/L [facility] Anion Gap 11 3 - 12 [facility] eGFR 38 (L)Comment: eGFR calculated >60 mL/min [facility] using the CKD-EPIcr_R equation Specimen Blood (substance) Performing Organization Address City/[facility]/ZIP Code P shane Number [facility] [address] [place] [address] * (ABNORMAL) CBC AND DIFF (03/21/2021 5:49 AM ENCODING CLERK) White Blood 5.7 4.5 - 11.0 K/UL [facility] Cells RBC 3.75 (L) 4.0 - 5.0 M/UL [facility] Hemoglobin 11.4 (L) 12.0 - 15.0 GM/DL [facility] Hematocrit 34.5 (L) 36 - 45 % [facility] MCV 92.1 80 - 100 FL [facility] MCH 30.4 26 - 34 PG [facility] MCHC 33.0 32.0 - 36.0 G/DL [facility] RDW 16.6 (H) 11 - 15 % [facility] Platelet Count 233 150 - 400 K/UL [facility] MPV 7.2 7 - 11 FL [facility] Neutrophils 78 (H) 41 - 77 % [facility] Lymphocytes 11 (L) 24 - 44 % [facility] Monocytes 8 4 - 12 % [facility] Eosinophils 2 0 - 5 % [facility] Basophils 1 0 - 2 % [facility] Absolute 4.52 1.8 - 7.0 K/UL [facility] Neutrophil Count Absolute Lymph 0.60 (L) 1.0 - 4.8 K/UL [facility] Count Absolute 0.44 0 - 0.80 K/UL [facility] Monocyte Count Absolute 0.10 0 - 0.45 K/UL [facility] Eosinophil Count Absolute 0.03 0 - 0.20 K/UL [facility] Basophil Count Specimen Blood (substance) Performing Organization Address City/[facility]/ZIP Code P shaen Number [facility] MAIN [facility] [address] [place] [address] * (ABNORMAL) PROTIME INR (PT) (03/21/2021 5:49 AM ENCODING CLERK) INR 1.6 (H) 0.8 - 1.2 [facility] Specimen Blood (substance) Performing Organization Address City/[facility]/ZIP Code P shane Number [facility] [address] [place] [address] * (ABNORMAL) COMPREHENSIVE METABOLIC PANEL (03/20/2021 10:17 AM ENCODING CLERK) Sodium 131 (L) 137 - 147 MMOL/L [facility] Potassium 3.7 3.5 - 5.1 MMOL/L [facility] Chloride 96 (L) 98 - 110 MMOL/L [facility] Glucose 93 70 - 100 MG/DL [facility] Blood Urea 31 (H) 7 - 25 MG/DL [facility] Nitrogen Creatinine 1.52 (H) 0.4 - 1.00 MG/DL [facility] Calcium 8.8 8.5 - 10.6 MG/DL [facility] Total Protein 6.3 6.0 - 8.0 G/DL [facility] Total Bilirubin 0.7 0.3 - 1.2 MG/DL [facility] Albumin 3.7 3.5 - 5.0 G/DL [facility] Alk Phosphatase 124 (H) 25 - 110 U/L [facility] AST (SGOT) 29 7 - 40 U/L [facility] CO2 24 21 - 30 MMOL/L [facility] ALT (SGPT) 13 7 - 56 U/L [facility] Anion Gap 11 3 - 12 [facility] eGFR 39 (L)Comment: eGFR calculated >60 mL/min [facility] using the CKD-EPIcr_R equation Specimen Blood (substance) Performing Organization Address City/State/ZIP Code P shane Number [facility] [address] [place] [address] * (ABNORMAL) CBC AND DIFF (03/20/2021 10:17 AM ENCODING CLERK) White Blood 5.9 4.5 - 11.0 K/UL [facility] Cells RBC 3.88 (L) 4.0 - 5.0 M/UL [facility] Hemoglobin 12.0 12.0 - 15.0 GM/DL [facility] Hematocrit 35.6 (L) 36 - 45 % [facility] MCV 91.7 80 - 100 FL [facility] MCH 30.8 26 - 34 PG [facility] MCHC 33.5 32.0 - 36.0 G/DL [facility] RDW 16.3 (H) 11 - 15 % [facility] Platelet Count 246 150 - 400 K/UL [facility] MPV 7.2 7 - 11 FL [facility] Neutrophils 81 (H) 41 - 77 % [facility] Lymphocytes 10 (L) 24 - 44 % [facility] Monocytes 7 4 - 12 % [facility] Eosinophils 1 0 - 5 % [facility] Basophils 1 0 - 2 % [facility] Absolute 4.78 1.8 - 7.0 K/UL [facility] Neutrophil Count Absolute Lymph 0.61 (L) 1.0 - 4.8 K/UL [facility] Count Absolute 0.38 0 - 0.80 K/UL [facility] Monocyte Count Absolute 0.08 0 - 0.45 K/UL [facility] Eosinophil Count Absolute 0.06 0 - 0.20 K/UL [facility] Basophil Count Specimen Blood (substance) Performing Organization Address City/[facility]/ZIP Code P shane Number [facility] MAIN [facility] [address] [place] [address] * (ABNORMAL) PROTIME INR (PT) (03/20/2021 10:17 AM ENCODING CLERK) INR 1.8 (H) 0.8 - 1.2 [facility] Specimen Blood (substance) Performing Organization Address City/[facility] Code P shane Number [facility] MAIN [facility] [address] [place] [address] * US RENAL BLADDER COMPLETE (03/19/2021 1:54 PM ENCODING CLERK) Modality Anatomical Region Laterality Ultrasound Pelvis Specimen Impressions [facility] RAD RESULTS - 03/19/2021 2:02 PM ENCODING CLERK 1. Normal size kidneys without evidenc e [...] [facility] RAD RESULTS - 03/19/2021 2:02 PM ENCODING CLERK RENAL ULTRASOUND CLINICAL INDICATION: Acute kidney injury. [...] on 03/19/2021 1:42 PM. Performing Organization Address [facility] P shane Number RAD RESULTS * UREA NITROGEN-URINE RANDOM (03/19/2021 12:00 PM ENCODING CLERK) Urea Nitrogen 614 MG/DL [facility] Specimen Urine - Urine specimen (specimen) Performing Organization Address [facility] P shane Number [facility] [address] [place] [address] * CREATININE-URINE RANDOM (03/19/2021 12:00 PM ENCODING CLERK) Creatinine, 81 MG/DL [facility] Random Specimen Urine - Urine specimen (specimen) Performing Organization Address [facility] P shane Number [facility] [address] [place] [address] * SODIUM-URINE RANDOM (03/19/2021 12:00 PM ENCODING CLERK) Sodium, Random <10 MMOL/L [facility] Specimen Urine - Urine specimen (specimen) Performing Organization Address [facility]/State/ZIP Code P shane Number [facility] [address] [place] [address] * CULTURE-URINE W/SENSITIVITY (03/19/2021 11:59 AM ENCODING CLERK) Battery Name URINE CULTURE [facility] Report Status FINAL 03/20/2021 [facility] Specimen URINE MIDSTREAM [facility] Description Special No special requests [facility] Requests Culture NO GROWTH [facility] Specimen Urine Performing Organization Address [facility] Code P shane Number [facility] [address] [place] [phone] * UA REFLEX LABEL (03/19/2021 11:59 AM ENCODING CLERK) UA Reflex Criteria for reflex to culture [facility] Culture are WBC>10, Positive Nitrit e, and/or >=+1 leukocytes. If quantity is not sufficient, an addendum will follow. Specimen Urine specimen (specimen) Performing Organization Address [facility] P shane Number [facility] [address] [place] [address] * URINALYSIS MICROSCOPIC REFLEX TO CULTURE (03/19/2021 11:59 AM ENCODING CLERK) WBCs,UA 10-20 0 - 2 /HPF KU [...] Specimen Urine specimen (specimen) Performing Organization Address [facility]/ZIP Code P shane Number [facility] [address] [place] [phone] * (ABNORMAL) URINALYSIS DIPSTICK REFLEX TO CULTURE (03/19/2021 11:59 AM ENCODING CLERK) Color,UA YELLOW [facility] Turbidity,UA 1+ (A) CLEAR-CLEAR [facility] Specific 1.017Comment: NOTE NEW 1.005 - 1.030 [facility] LAB [place]-Urine REFERENCE RANGES pH,UA 5.0 5.0 - 8.0 [...] P shane Number [facility] [address] [place] [address] * (ABNORMAL) COMPREHENSIVE METABOLIC PANEL (03/19/2021 6:38 AM ENCODING CLERK) Pathologist [facility] Sodium 129 (L) 137 - 147 MMOL/L [facility] Potassium 3.8 3.5 - 5.1 MMOL/L [facility] Chloride 95 (L) 98 - 110 MMOL/L [facility] Glucose 74 70 - 100 MG/DL [facility] Blood Urea 29 (H) 7 - 25 MG/DL [facility] Nitrogen Creatinine 1.50 (H) 0.4 - 1.00 MG/DL [facility] Calcium 8.7 8.5 - 10.6 MG/DL [facility] Total Protein 5.8 (L) 6.0 - 8.0 G/DL [facility] Total Bilirubin 0.6 0.3 - 1.2 MG/DL [facility] Albumin 3.3 (L) 3.5 - 5.0 G/DL [facility] Alk Phosphatase 99 25 - 110 U/L [facility] AST (SGOT) 28 7 - 40 U/L [facility] CO2 24 21 - 30 MMOL/L [facility] ALT (SGPT) 13 7 - 56 U/L [facility] Anion Gap 10 3 - 12 [facility] eGFR 40 (L)Comment: eGFR calculated >60 mL/min [facility] using the CKD-EPIcr_R equation Specimen Blood (substance) Performing Organization Address [facility]/ZIP Code P shane Number [facility] MAIN [facility] [address] [place] [address] * (ABNORMAL) CBC AND DIFF (03/19/2021 6:38 AM ENCODING CLERK) White Blood 6.3 4.5 - 11.0 K/UL [facility] Cells RBC 3.87 (L) 4.0 - 5.0 M/UL [facility] Hemoglobin 11.7 (L) 12.0 - 15.0 GM/DL [facility] Hematocrit 35.6 (L) 36 - 45 % [facility] MCV 92.0 80 - 100 FL [facility] MCH 30.3 26 - 34 PG [facility] MCHC 33.0 32.0 - 36.0 G/DL [facility] RDW 16.6 (H) 11 - 15 % [facility] Platelet Count 224 150 - 400 K/UL [facility] MPV 7.1 7 - 11 FL [facility] Neutrophils 74 41 - 77 % [facility] Lymphocytes 15 (L) 24 - 44 % [facility] Monocytes 8 4 - 12 % [facility] Eosinophils 2 0 - 5 % [facility] Basophils 1 0 - 2 % [facility] Absolute 4.67 1.8 - 7.0 K/UL [facility] Neutrophil Count Absolute Lymph 0.91 (L) 1.0 - 4.8 K/UL [facility] Count Absolute 0.50 0 - 0.80 K/UL [facility] Monocyte Count Absolute 0.13 0 - 0.45 K/UL [facility] Eosinophil Count Absolute 0.05 0 - 0.20 K/UL [facility] Basophil Count Specimen Blood (substance) Performing Organization Address City/[facility]/ZIP Code P shane Number [facility]IN [facility] [address] [place] [address] * (ABNORMAL) PROTIME INR (PT) (03/19/2021 6:38 AM ENCODING CLERK) INR 2.5 (H) 0.8 - 1.2 [facility] Specimen Blood (substance) Performing Organization Address [facility]/ZIP [facility] P shane Number [facility] [address] [place] [address] * (ABNORMAL) PROTIME INR (PT) (03/18/2021 12:24 PM ENCODING CLERK) INR 3.3 (H) 0.8 - 1.2 [facility] Specimen Blood (substance) Performing Organization Address [facility]/ZIP Code P shane Number [facility] [address] [place] [address] * (ABNORMAL) COMPREHENSIVE METABOLIC PANEL (03/18/2021 12:24 PM ENCODING CLERK) Sodium 130 (L) 137 - 147 MMOL/L [facility] Potassium 3.6 3.5 - 5.1 MMOL/L [facility] Chloride 97 (L) 98 - 110 MMOL/L [facility] Glucose 156 (H) 70 - 100 MG/DL [facility] Blood Urea 26 (H) 7 - 25 MG/DL [facility] Nitrogen Creatinine 1.65 (H) 0.4 - 1.00 MG/DL [facility] Calcium 8.7 8.5 - 10.6 MG/DL [facility] Total Protein 6.0 6.0 - 8.0 G/DL [facility] Total Bilirubin 0.6 0.3 - 1.2 MG/DL [facility] Albumin 3.3 (L) 3.5 - 5.0 G/DL [facility] Alk Phosphatase 101 25 - 110 U/L [facility] AST (SGOT) 31 7 - 40 U/L [facility] CO2 25 21 - 30 MMOL/L [facility] ALT (SGPT) 15 7 - 56 U/L [facility] Anion Gap 8 3 - 12 [facility] eGFR 36 (L)Comment: eGFR calculated >60 mL/min [facility] using the CKD-EPIcr_R equation Specimen Blood (substance) Performing Organization Address City/State/ZIP Code P shane Number [facility] [address] [place] [address] * (ABNORMAL) CBC AND DIFF (03/18/2021 7:25 AM ENCODING CLERK) White Blood 5.9 4.5 - 11.0 K/UL [facility] Cells RBC 4.10 4.0 - 5.0 M/UL [facility] Hemoglobin 12.9 12.0 - 15.0 GM/DL [facility] Hematocrit 40.1 36 - 45 % [facility] MCV 97.9 80 - 100 FL [facility] MCH 31.4 26 - 34 PG [facility] MCHC 32.1 32.0 - 36.0 G/DL [facility] RDW 17.7 (H) 11 - 15 % [facility] Platelet Count 241 150 - 400 K/UL [facility] MPV 6.8 (L) 7 - 11 FL [facility] Neutrophils 70 41 - 77 % [facility] Lymphocytes 16 (L) 24 - 44 % [facility] Monocytes 10 4 - 12 % [facility] Eosinophils 2 0 - 5 % [facility] Basophils 2 0 - 2 % [facility] Absolute 4.10 1.8 - 7.0 K/UL [facility] Neutrophil Count Absolute Lymph 1.00 1.0 - 4.8 K/UL [facility] Count Absolute 0.60 0 - 0.80 K/UL [facility] Monocyte Count Absolute 0.10 0 - 0.45 K/UL [facility] Eosinophil Count Absolute 0.10 0 - 0.20 K/UL [facility] Basophil Count Specimen Blood (substance) Performing Organization Address City/[facility]/ZIP Code P shane Number [facility] [address] [place] [address] * (ABNORMAL) PROTIME INR (PT) (03/17/2021 4:16 AM ENCODING CLERK) INR 4.1 (H) 0.8 - 1.2 [facility] Specimen Blood (substance) Performing Organization Address [facility]/ZIP Code P shane Number [facility] [address] [place] [address] * (ABNORMAL) COMPREHENSIVE METABOLIC PANEL (03/17/2021 4:16 AM ENCODING CLERK) Sodium 132 (L) 137 - 147 MMOL/L [facility] Potassium 3.2 (L) 3.5 - 5.1 MMOL/L [facility] Chloride 94 (L) 98 - 110 MMOL/L [facility] Glucose 109 (H) 70 - 100 MG/DL [facility] Blood Urea 25 7 - 25 MG/DL [facility] Nitrogen Creatinine 1.56 (H) 0.4 - 1.00 MG/DL [facility] Calcium 8.1 (L) 8.5 - 10.6 MG/DL [facility] Total Protein 5.8 (L) 6.0 - 8.0 G/DL [facility] Total Bilirubin 0.6 0.3 - 1.2 MG/DL [facility] Albumin 3.1 (L) 3.5 - 5.0 G/DL [facility] Alk Phosphatase 96 25 - 110 U/L [facility] AST (SGOT) 39 7 - 40 U/L [facility] CO2 24 21 - 30 MMOL/L [facility] ALT (SGPT) 16 7 - 56 U/L [facility] Anion Gap 14 (H) 3 - 12 [facility] eGFR 38 (L)Comment: eGFR calculated >60 mL/min [facility] using the CKD-EPIcr_R equation Specimen Blood (substance) Performing Organization Address City/[facility]/ZIP Code P shane Number [facility] [address] [place] [address] * (ABNORMAL) CBC AND DIFF (03/17/2021 4:16 AM ENCODING CLERK) White Blood 6.2 4.5 - 11.0 K/UL [facility] Cells RBC 4.15 4.0 - 5.0 M/UL [facility] Hemoglobin 12.4 12.0 - 15.0 GM/DL [facility] Hematocrit 38.0 36 - 45 % [facility] MCV 91.7 80 - 100 FL [facility] MCH 30.0 26 - 34 PG [facility] MCHC 32.7 32.0 - 36.0 G/DL [facility] RDW 16.7 (H) 11 - 15 % [facility] Platelet Count 288 150 - 400 K/UL [facility] MPV 7.0 7 - 11 FL [facility] Neutrophils 77 41 - 77 % [facility] Lymphocytes 10 (L) 24 - 44 % [facility] Monocytes 9 4 - 12 % [facility] Eosinophils 3 0 - 5 % [facility] Basophils 1 0 - 2 % [facility] Absolute 4.82 1.8 - 7.0 K/UL [facility] Neutrophil Count Absolute Lymph 0.64 (L) 1.0 - 4.8 K/UL [facility] Count Absolute 0.56 0 - 0.80 K/UL [facility] Monocyte Count Absolute 0.17 0 - 0.45 K/UL [facility] Eosinophil Count Absolute 0.04 0 - 0.20 K/UL [facility] Basophil Count Specimen Blood (substance) Performing Organization Address City/[facility]/ZIP Code P shane Number [facility] [address] [place] [address] * (ABNORMAL) POC GLUCOSE (03/16/2021 4:52 PM ENCODING CLERK) Glucose, POC 255 (H) 70 - 100 MG/DL [facility] Specimen Performing Organization Address [facility]/ZIP Code P shane Number [facility] [address] [place] [address] * EXTRA URINE CHAVARRIA TOP (03/16/2021 12:48 PM ENCODING CLERK) Specimen Performing Organization Address [facility] P shane Number [facility] [address] [place] [address] * URINE TIGER TOP TUBE (03/16/2021 12:48 PM ENCODING CLERK) Specimen Performing Organization [facility] P shane Number [facility] [address] [place] [address] * UREA NITROGEN-URINE RANDOM (03/16/2021 12:48 PM ENCODING CLERK) Urea Nitrogen 393 MG/DL [facility] Specimen Urine - Urine specimen (specimen) Performing Organization Address [facility] P shane Number [facility] [address] [place] [address] * CREATININE-URINE RANDOM (03/16/2021 12:48 PM ENCODING CLERK) Creatinine, 56 MG/DL [facility] Random Specimen Urine - Urine specimen (specimen) Performing Organization [facility] P shane Number [facility] [address] [place] [address] * SODIUM-URINE RANDOM (03/16/2021 12:48 PM ENCODING CLERK) Sodium, Random 33 MMOL/L [facility] Specimen Urine - Urine specimen (specimen) Performing Organization [facility] P shane Number [facility] [address] [place] [address] * (ABNORMAL) PROTIME INR (PT) (03/16/2021 7:55 AM ENCODING CLERK) INR 3.2 (H) 0.8 - 1.2 [facility] Specimen Blood (substance) Performing Organization Address [facility] P shane Number [facility] [address] [place] [address] * (ABNORMAL) COMPREHENSIVE METABOLIC PANEL (03/16/2021 7:55 AM ENCODING CLERK) Sodium 133 (L) 137 - 147 MMOL/L [facility] Potassium 3.3 (L) 3.5 - 5.1 MMOL/L [facility] Chloride 95 (L) 98 - 110 MMOL/L [facility] Glucose 80 70 - 100 MG/DL [facility] Blood Urea 27 (H) 7 - 25 MG/DL [facility] Nitrogen Creatinine 1.47 (H) 0.4 - 1.00 MG/DL [facility] Calcium 8.7 8.5 - 10.6 MG/DL [facility] Total Protein 5.7 (L) 6.0 - 8.0 G/DL [facility] Total Bilirubin 1.0 0.3 - 1.2 MG/DL [facility] Albumin 3.0 (L) 3.5 - 5.0 G/DL [facility] Alk Phosphatase 88 25 - 110 U/L [facility] AST (SGOT) 39 7 - 40 U/L [facility] CO2 26 21 - 30 MMOL/L [facility] ALT (SGPT) 15 7 - 56 U/L [facility] Anion Gap 12 3 - 12 [facility] eGFR 41 (L)Comment: eGFR calculated >60 mL/min [facility] using the CKD-EPIcr_R equation Specimen Blood (substance) Performing Organization Address City/State/ZIP Code P shane Number [facility] [address] [place] [address] * (ABNORMAL) CBC AND DIFF (03/16/2021 7:55 AM ENCODING CLERK) White Blood 6.4 4.5 - 11.0 K/UL [facility] Cells RBC 3.90 (L) 4.0 - 5.0 M/UL [facility] Hemoglobin 11.7 (L) 12.0 - 15.0 GM/DL [facility] Hematocrit 35.9 (L) 36 - 45 % [facility] LAB MCV 91.8 80 - 100 FL [facility] MCH 30.1 26 - 34 PG [facility] MCHC 32.7 32.0 - 36.0 G/DL [facility] RDW 16.5 (H) 11 - 15 % [facility] Platelet Count 249 150 - 400 K/UL [facility] MPV 6.7 (L) 7 - 11 FL [facility] Neutrophils 78 (H) 41 - 77 % [facility] Lymphocytes 10 (L) 24 - 44 % [facility] Monocytes 9 4 - 12 % [facility] Eosinophils 2 0 - 5 % [facility] Basophils 1 0 - 2 % [facility] Absolute 5.03 1.8 - 7.0 K/UL [facility] Neutrophil Count Absolute Lymph 0.63 (L) 1.0 - 4.8 K/UL [facility] Count Absolute 0.57 0 - 0.80 K/UL [facility] Monocyte Count Absolute 0.15 0 - 0.45 K/UL [facility] Eosinophil Count Absolute 0.04 0 - 0.20 K/UL [facility] Basophil Count Specimen Blood (substance) Performing Organization Address City/State/ZIP Code P shane Number [facility] [address] [place] [address] * IR PARACENTESIS DIAGNOSTIC + THERAPEUTIC (03/15/2021 12:17 PM ENCODING CLERK) Modality Anatomical Region Laterality Ultrasound Specimen Impressions [facility] RESULTS - 03/16/2021 9:01 AM ENCODING CLERK Successful diagnostic and therapeutic paracentesis as described. Finalized by Kory Meneses M.D. on 03/16/2021 9:01 AM. Dictated by Kory Meneses M.D. on 03/16/2021 8:59 AM. Narrative [facility] RESULTS - 03/16/2021 9:01 AM ENCODING CLERK Ultrasound guided diagnostic and therapeutic paracentesis: History: Paracentesis, ascites. Technique and Findings: The risks and benefits of procedure were explained the patient beforehand, the patient was allowed to ask any questions at this time. Using ultrasound guidance, an appropriate insertion site in the right lower quadrant was marked. A hardcopy image of patients ascites was recorded. The patient was prepped and draped in the usual sterile fashion. Approximately 5 ml of lidocaine was used for local anesthesia. A Priceonomicseh paracentesis needle was inserted into the abdomen, with return of clear yellow fluid. Approximately 1150 ml of fluid was removed. The centesis catheter was then withdrawn. A sterile dressing was applied at the skin site. The patient tolerated the procedure well. The patient was then escorted from the department for continued care. A sample of ascites was sent to lab for further analysis. Sedation: No IV sedation was administered. Procedure Note Kory Meneses MD - 03/16/2021 Ultrasound guided diagnostic and therapeutic paracentesis: History: Paracentesis, ascites. Technique and Findings: The risks and benefits of procedure were explained the patient beforehand, the patient was allowed to ask any questions at this time. Using ultrasound guidance, an appropriate insertion site in the right lower quadrant was marked. A hardcopy image of patients ascites was recorded. The patient was prepped and draped in the usual sterile fashion. Approximately 5 ml of lidocaine was used for local anesthesia. A Yueh paracentesis needle was inserted into the abdomen, with return of clear yellow fluid. Approximately 1150 ml of fluid was removed. The centesis catheter was then withdrawn. A sterile dressing was applied at the skin site. The patient tolerated the procedure well. The patient was then escorted from the department for continued care. A sample of ascites was sent to lab for further analysis. Sedation: No IV sedation was administered. IMPRESSION Successful diagnostic and therapeutic paracentesis as described. Finalized by Koyr Meneses M.D. on 03/16/2021 9:01 AM. Dictated by Kory Meneses M.D. on 03/16/2021 8:59 AM. Performing Organization Address [facility] Code P shane Number [facility] RESULTS * PERITONEAL FLUID TOTAL PROTEIN (03/15/2021 12:08 PM ENCODING CLERK) Peritoneal 3.2 g/dL [facility] Fluid Total Comment: Protein Ascites fluid total prote in >1g/dL favors secondary bacterial peritonitis over spontaneous bacterial peritonitis Specimen Peritoneal fluid (substance) Performing Organization Address [facility] P shane Number [facility] [address] [place] [address] * PERITONEAL FLUID ALBUMIN (03/15/2021 12:08 PM ENCODING CLERK) Peritoneal 1.9 g/dL [facility] Fluid Albumin Comment: Serum to ascites albumin gradient (SAAG) >1.1 g/d is seen in portal hypertension. SAAG <1.1 g/dL is seen in cancer and infections Specimen Peritoneal fluid (substance) Performing Organization Address [facility] P shane Number [facility] [address] [place] [address] * GRAM STAIN (03/15/2021 12:08 PM ENCODING CLERK) Battery Name GRAM STAIN [facility] Report Status FINAL 03/15/2021 [facility] Specimen FLUID PARACENTESIS FLUID [facility] Description Special No special requests [facility] Requests Gram Stain MANY [facility] RBC'S Gram Stain MODERATE [facility] NEUTROPHILS Gram Stain NO ORGANISMS SEEN [facility] Specimen Fluid Performing Organization Address [facility] Code P shane Number [facility] [address] [place] [address] * CULTURE-WOUND/TISSUE/FLUID(AEROBIC ONLY)W/SENSITIVITY (03/15/2021 12:08 PM ENCODING CLERK) Battery Name ROUTINE CULTURE [facility] Report Status FINAL 03/20/2021 [facility] Specimen FLUID PARACENTESIS FLUID [facility] Description Special No special requests [facility] Requests Direct Gram MANY [facility] Stain RBC'S Direct Gram MODERATE [facility] Stain NEUTROPHILS Direct Gram NO ORGANISMS SEEN [facility] Stain Culture NO GROWTH 5 DAYS [facility] Specimen Fluid Performing Organization Address City/[facility]/ZIP Code P shane Number [facility] [address] [place] [address] * CELL COUNT W/DIFF-FLUIDS (03/15/2021 12:08 PM ENCODING CLERK) White Blood 200 /UL [facility] Cells,Fluid Red Blood 17,200 /UL [facility] Cells,Fluid Segmented 3 % [facility] Neutrophils, Fluid Lymphocytes,Flu 63 % [facility] id Monocyte/Histo, 34 % [facility] Fluid Fluid Source [...] - Peritoneal fluid (substance) Performing Organization Address City/[facility]/ZIP Code P shane Number [facility] [address] [place] [address] * CULTURE-BLOOD W/SENSITIVITY (03/15/2021 10:00 AM ENCODING CLERK) Battery Name BLOOD CULTURE [facility] Report Status FINAL 03/21/2021 [facility] Specimen BLOOD ARM, LEFT ANTECUBITAL [facility] AB Description Special No special requests [facility] Requests Culture NO GROWTH 5 DAYS [facility] Specimen Blood Performing Organization Address City/[facility]/ZIP Code P shane Number [facility] [address] [place] [address] * CULTURE-BLOOD W/SENSITIVITY (03/15/2021 9:50 AM ENCODING CLERK) Battery Name BLOOD CULTURE [facility] Report Status FINAL 03/21/2021 [facility] Specimen BLOOD ARM, RIGHT FA [facility] Description Special No special requests [facility] Requests Culture NO GROWTH 5 DAYS [facility] Specimen Blood Performing Organization Address [facility]/ZIP Code P shane Number [facility] [address] [place] [address] * (ABNORMAL) PROTIME INR (PT) (03/15/2021 6:58 AM ENCODING CLERK) INR 2.3 (H) 0.8 - 1.2 [facility] Specimen Blood (substance) Performing Organization Address [facility] Code P shane Number [facility] [address] [place] [address] * (ABNORMAL) COMPREHENSIVE METABOLIC PANEL (03/15/2021 6:58 AM ENCODING CLERK) Sodium 141 137 - 147 MMOL/L [facility] Potassium 3.5 3.5 - 5.1 MMOL/L [facility] Chloride 102 98 - 110 MMOL/L [facility] Glucose 78 70 - 100 MG/DL [facility] Blood Urea 23 7 - 25 MG/DL [facility] Nitrogen Creatinine 0.96 0.4 - 1.00 MG/DL [facility] Calcium 8.6 8.5 - 10.6 MG/DL [facility] Total Protein 5.9 (L) 6.0 - 8.0 G/DL [facility] Total Bilirubin 1.3 (H) 0.3 - 1.2 MG/DL [facility] Albumin 3.1 (L) 3.5 - 5.0 G/DL [facility] Alk Phosphatase 87 25 - 110 U/L [facility] AST (SGOT) 37 7 - 40 U/L [facility] CO2 28 21 - 30 MMOL/L [facility] ALT (SGPT) 14 7 - 56 U/L [facility] Anion Gap 11 3 - 12 [facility] eGFR >60Comment: eGFR calculated >60 mL/min [facility] using the CKD-EPIcr_R equation Specimen Blood (substance) Performing Organization Address [facility]/ZIP Code P shane Number [facility] [address] [place] [address] * (ABNORMAL) CBC AND DIFF (03/15/2021 6:58 AM ENCODING CLERK) White Blood 5.7 4.5 - 11.0 K/UL [facility] Cells RBC 3.73 (L) 4.0 - 5.0 M/UL [facility] Hemoglobin 11.3 (L) 12.0 - 15.0 GM/DL [facility] Hematocrit 34.3 (L) 36 - 45 % [facility] MCV 91.8 80 - 100 FL [facility] MCH 30.2 26 - 34 PG [facility] MCHC 32.9 32.0 - 36.0 G/DL [facility] RDW 16.6 (H) 11 - 15 % [facility] Platelet Count 226 150 - 400 K/UL [facility] [...] - 2 % [facility] Absolute 4.72 1.8 - 7.0 K/UL [facility] Neutrophil Count Absolute Lymph 0.51 (L) 1.0 - 4.8 K/UL [facility] Count Absolute 0.44 0 - 0.80 K/UL [facility] Monocyte Count Absolute 0.06 0 - 0.45 K/UL [facility] Eosinophil Count Absolute 0.02 0 - 0.20 K/UL [facility] Basophil Count Specimen Blood (substance) Performing Organization Address City/State/ZIP Code P shane Number MAIN LAB [address] [place] [address] * (ABNORMAL) CULTURE-URINE W/SENSITIVITY (03/14/2021 10:06 PM ENCODING CLERK) Battery Name URINE CULTURE MAIN LAB Report Status FINAL 03/16/2021 MAIN LAB Specimen URINE MIDSTREAM MAIN LAB Description Special No special requests [facility] Requests Culture <100,000 CFU/ml MAIN LAB ESCHERICHIA COLI (A) Specimen Urine Antibiotic Method Susceptibility Organism Amikacin CHELO (MCG/ML), INTERPRETATION, PHX <=8: Susceptible Escherichia coli Ampicillin/Sulbactam CHELO (MCG/ML), INTERPRETATION, PHX 2/1: Susceptible Escherichia coli Ampicillin CHELO (MCG/ML), INTERPRETATION, PHX <=4: Susceptible Escherichia coli Cefepime CHELO (MCG/ML), INTERPRETATION, PHX <=1: Susceptible Escherichia coli Ceftriaxone CHELO (MCG/ML), INTERPRETATION, PHX <=1: Susceptible Escherichia coli Gentamicin CHELO (MCG/ML), INTERPRETATION, PHX <=2: Susceptible Escherichia coli Levofloxacin CHELO (MCG/ML), INTERPRETATION, PHX <=0.5: Susceptible Escherichia coli Nitrofurantoin CHELO (MCG/ML), INTERPRETATION, PHX 32: Susceptible Escherichia coli Piperacil/Tazobactam CHELO (MCG/ML), INTERPRETATION, PHX <=2/4: Susceptible Escherichia coli Trimethsulfa CHELO (MCG/ML), INTERPRETATION, PHX <=0.5/9.5: Susceptible Escherichia coli Oral Cephalosporins CHELO (MCG/ML), INTERPRETATION, PHX <=1: Susceptible Escherichia coli Performing Organization Address [facility]/ZIP Code P shane Number [facility] [address] [place] [address] * (ABNORMAL) URINALYSIS MICROSCOPIC REFLEX TO CULTURE (03/14/2021 10:06 PM ENCODING CLERK) WBCs,UA PACKED 0 - 2 /HPF [facility] RBCs,UA 20-50 0 - 3 /HPF [facility] Comment,UA Criteria for reflex to culture [facility] are WBC>10, Positive Nitrite, and/or >=+1 leukocytes. If quantity is not sufficient, an addendum will follow. MucousUA TRACE [facility] Bacteria,UA FEW (A) NEG-NEG [facility] WBC Clumps PRESENT [facility] Squamous 0-2 0 - 5 [facility] Epithelial Cells Specimen Urine specimen (specimen) Performing Organization Address [facility] P shane Number [facility] [address] [place] [phone] * (ABNORMAL) URINALYSIS DIPSTICK REFLEX TO CULTURE (03/14/2021 10:06 PM ENCODING CLERK) Color,UA YELLOW [facility] Turbidity,UA 2+ (A) CLEAR-CLEAR [facility] Specific 1.014Comment: NOTE NEW 1.005 - 1.030 [facility] [place]-Urine REFERENCE RANGES pH,UA 5.0 5.0 - 8.0 [facility] Protein,UA 1+ (A) NEG-NEG [facility] Glucose,UA 2+ (A) NEG-NEG [facility] Ketones,UA NEG NEG-NEG [facility] Bilirubin,UA NEG NEG-NEG [facility] Blood,UA 3+ (A) NEG-NEG [facility] Urobilinogen,UA NORMAL NORM-NORMAL [facility] Nitrite,UA NEG NEG-NEG [facility] Leukocytes,UA 3+ (A) NEG-NEG [facility] Urine Ascorbic POS (A) NEG-NEG [facility] Acid, UA Comment: Ascorbic acid is found in various food supplies and dietary supplements, and is reported to cause strong interference with Macroscopic Urinalysis testing for glucose, blood and nitrite, and can result in a false negative result. Specimen Urine specimen (specimen) Performing Organization Address City/[facility] Code P shane Number [facility] [address] [place] [address] * FREE T4-FREE THYROXINE (03/14/2021 9:10 PM ENCODING CLERK) T4-Free 0.9 0.6 - 1.6 NG/DL [facility] Specimen Performing Organization Address [facility] P shane Number [facility] [address] [place] [address] * COVID-19 (SARS-COV-2) PCR (03/14/2021 9:10 PM ENCODING CLERK) COVID-19 FLOCKED SWAB [facility] (SARS-CoV-2) NASOPHARYNGEAL PCR Source COVID-19 NOT DETECTED DN-NOT DETECTED [facility] (SARS-CoV-2) Comment: PCR This assay is [...] performance characteristics have been verified by the [facility]. Fact sheet for providers: https://www.fda.gov/media/6674 85/download Fact sheet for patients: https://www.fda.gov/media/3308 87/download Specimen Flocked Swab - Nasopharyngeal structure (body structure) Performing Organization Address [facility]/ZIP Code P shane Number [facility] [address] [place] [address] * (ABNORMAL) TSH WITH FREE T4 REFLEX (03/14/2021 9:10 PM ENCODING CLERK) Pathologist [facility] [place] TSH 8.95 (H) 0.35 - 5.00 MCU/ML [facility] Specimen Blood (substance) Performing Organization Address [facility] Code P shane Number [facility] [address] [place] [address] * (ABNORMAL) COMPREHENSIVE METABOLIC PANEL (03/14/2021 9:10 PM ENCODING CLERK) Pathologist [facility] [place] Sodium 140 137 - 147 MMOL/L [facility] Potassium 3.4 (L) 3.5 - 5.1 MMOL/L [facility] Chloride 101 98 - 110 MMOL/L [facility] Glucose 80 70 - 100 MG/DL [facility] Blood Urea 24 7 - 25 MG/DL [facility] Nitrogen Creatinine 1.02 (H) 0.4 - 1.00 MG/DL [facility] Calcium 8.9 8.5 - 10.6 MG/DL [facility] Total Protein 5.7 (L) 6.0 - 8.0 G/DL [facility] Total Bilirubin 1.2 0.3 - 1.2 MG/DL [facility] Albumin 3.1 (L) 3.5 - 5.0 G/DL [facility] Alk Phosphatase 83 25 - 110 U/L [facility] AST (SGOT) 38 7 - 40 U/L [facility] CO2 27 21 - 30 MMOL/L [facility] ALT (SGPT) 13 7 - 56 U/L [facility] Anion Gap 12 3 - 12 [facility] eGFR >60Comment: eGFR calculated >60 mL/min [facility] using the CKD-EPIcr_R equation Specimen Blood (substance) Performing Organization Address [facility]/ZIP Code P shane Number [facility] [address] [place] [address] * (ABNORMAL) CBC AND DIFF (03/14/2021 9:10 PM ENCODING CLERK) Pathologist [facility] [place] White Blood 5.6 4.5 - 11.0 K/UL [facility] Cells RBC 3.70 (L) 4.0 - 5.0 M/UL [facility] Hemoglobin 11.2 (L) 12.0 - 15.0 GM/DL [facility] Hematocrit 33.8 (L) 36 - 45 % [facility] MCV 91.4 80 - 100 FL [facility] MCH 30.4 26 - 34 PG [facility] MCHC 33.2 32.0 - 36.0 G/DL [facility] RDW 16.7 (H) 11 - 15 % [facility] Platelet Count 214 150 - 400 K/UL [facility] [...] - 2 % [facility] Absolute 4.66 1.8 - 7.0 K/UL [facility] Neutrophil Count Absolute Lymph 0.38 (L) 1.0 - 4.8 K/UL [facility] Count Absolute 0.45 0 - 0.80 K/UL [facility] Monocyte Count Absolute 0.06 0 - 0.45 K/UL [facility] Eosinophil Count Absolute 0.01 0 - 0.20 K/UL [facility] Basophil Count Specimen Blood (substance) Performing Organization Address City/[facility]/ZIP Code P shane Number [facility] [address] [place] [address] * (ABNORMAL) AMMONIA (03/14/2021 9:10 PM ENCODING CLERK) Ammonia 54 (H) 9 - 35 MCMOL/L [facility] Specimen Blood (substance) Performing Organization Address City/[facility] Code P shane Number [facility] [address] [place] [address] * CHEST SINGLE VIEW (03/14/2021 9:04 PM ENCODING CLERK) Modality Anatomical Region Laterality Computed Radiography Chest Specimen Impressions [facility] RESULTS - 03/15/2021 8:42 AM ENCODING CLERK Stable mild cardiomegaly and findings of CHF. Poor depth of inspiration with bibasilar atelectasis. Finalized by Theo Pinto M.D. on 03/15/2021 8:42 AM. Dictated by Theo Pinto M.D. on 03/15/2021 8:42 AM. Narrative [facility] RESULTS - 03/15/2021 8:42 AM ENCODING CLERK Single view INDICATION: Evaluate for pneumonia COMPARISON [...] P shane Number [facility] RESULTS * TELEMETRY STRIPS-SCAN (03/14/2021 12:00 AM ENCODING CLERK) Narrative 03/14/2021 12:00 AM ENCODING CLERK Ordered by an unspecified provider. * ECG-SCAN (03/14/2021 12:00 AM ENCODING CLERK) Narrative 03/14/2021 12:00 AM ENCODING CLERK Ordered by an unspecified provider. documented in this encounter Visit Diagnoses Diagnosis Encephalopathy - Primary Encephalopathy, unspecified Chronic heart failure with preserved ej ection fraction (HCC) Other cirrhosis of liver (HCC) Acute kidney injury superimposed on CKD (HCC) Chronic anticoagulation Long-term (current) use of anticoagulan ts Cirrhosis (HCC) Cirrhosis of liver without mention of a lcohol documented in this encounter Admitting Diagnoses Diagnosis Encephalopathy Encephalopathy, unspecified documented in this encounter Administered Medications Action Date Dose Rate Site Medication Order MAR Action 03/22/2021 8:06 AM ENCODING CLERK 1,000 mg acetaminophen (TYLENOL EXTRA STRENGTH) Given tablet 1,000 mg 1,000 mg, Oral, EVERY 6 HOURS PRN, Starting on 03/19/21 at 1909, Until Toya 03/22/21 at 1541, Pain non-opioid: may be used alone or in combination wit h opioid analgesia, TOTAL ACETAMINOPHEN DOSE NOT TO EXCEED 4GM DAILY 1,000 mg Given 03/21/2021 8:21 PM ENCODING CLERK 1,000 mg Given 03/21/2021 2:30 PM ENCODING CLERK 1,000 mg Given 03/21/2021 8:51 AM ENCODING CLERK 1,000 mg Given 03/21/2021 1:22 AM ENCODING CLERK 1,000 mg Given 03/20/2021 8:41 PM ENCODING CLERK 1,000 mg Given 03/20/2021 8:56 AM ENCODING CLERK 1,000 mg Given 03/20/2021 3:15 AM ENCODING CLERK 03/19/2021 7:05 PM ENCODING CLERK 500 mg acetaminophen (TYLENOL EXTRA STRENGTH) Given tablet 500 mg 500 mg, Oral, EVERY 6 HOURS PRN, Starting on Toya 03/15/21 at 2054, Until 03/19/21 at 1909, Pain non-opioid: may be used alone or in combination wit h opioid analgesia, TOTAL ACETAMINOPHEN DOSE NOT TO EXCEED 4GM DAILY 500 mg Given 03/19/2021 3:34 AM ENCODING CLERK 500 mg Given 03/18/2021 8:39 PM ENCODING CLERK 500 mg Given 03/18/2021 11:46 AM ENCODING CLERK 500 mg Given 03/18/2021 3:58 AM ENCODING CLERK 500 mg Given 03/17/2021 8:38 PM ENCODING CLERK 500 mg Given 03/17/2021 3:07 PM ENCODING CLERK 500 mg Given 03/17/2021 3:54 AM ENCODING CLERK 500 mg Given 03/16/2021 9:01 PM ENCODING CLERK 500 mg Given 03/16/2021 9:38 AM ENCODING CLERK 500 mg Given 03/15/2021 9:10 PM ENCODING CLERK 03/17/2021 12:19 PM ENCODING CLERK 25 g 180 mL/hr albumin 25% injection 25 g Given - New 100 mL, 25 g, Intravenous, at 180 mL/hr, Bag ONCE, 1 dose, On 03/17/21 at 1215 03/19/2021 9:28 AM ENCODING CLERK 25 g 180 mL/hr albumin 25% injection 25 g Given - New 100 mL, 25 g, Intravenous, at 180 mL/hr, Bag EVERY 6 HOURS, 4 doses, First dose on 03/18/21 at 1445, Last dose on 03/19/21 at 0845 25 g 180 mL/hr Given - New Bag 03/19/2021 3:35 AM ENCODING CLERK 25 g 180 mL/hr Given - New Bag 03/18/2021 8:41 PM ENCODING CLERK 25 g 180 mL/hr Given - New Bag 03/18/2021 4:33 PM ENCODING CLERK 03/22/2021 9:30 AM ENCODING CLERK 12.5 g albumin 25% injection Given - New INTRA-PROCEDURE MED(CONT), Starting on Bag Toya 03/22/21 at 0930, Until Toya 1 at 0930 03/16/2021 9:38 AM ENCODING CLERK 5 mg bumetanide (BUMEX) tablet 5 mg Given 5 mg, Oral, TWICE DAILY, First dose on Fri03/14/21 at 2200, Until Discontinue d 5 mg Given 03/15/2021 8:37 PM ENCODING CLERK 5 mg Given 03/15/2021 8:25 AM ENCODING CLERK 03/17/2021 8:32 AM ENCODING CLERK 1 g cefTRIAXone (ROCEPHIN) IVP 1 g Given 1 g, Intravenous, EVERY 24 HOURS, First dose on Fri03/15/21 at 0900, Until Discontinued, INSTR: IV PUSH -- RECONSTITUTE EACH 1 GM WITH 10 MLS of 0.9% NACL (NS) or STERILE WATER (SW) or DEXTROSE 5% (D5W) 1 g Given 03/16/2021 9:35 AM ENCODING CLERK 1 g Given 03/15/2021 8:39 AM ENCODING CLERK 03/20/2021 8:56 AM ENCODING CLERK 10 mg dapagliflozin (FARXIGA) tablet 10 mg Given 10 mg, Oral, DAILY, First dose on Fri03/15/21 at 0900, Until Discontinued 10 mg Given 03/19/2021 9:29 AM ENCODING CLERK 10 mg Given 03/18/2021 9:05 AM ENCODING CLERK 10 mg Given 03/17/2021 8:33 AM ENCODING CLERK 10 mg Given 03/16/2021 9:39 AM ENCODING CLERK 10 mg Given 03/15/2021 8:25 AM ENCODING CLERK 03/21/2021 8:22 PM ENCODING CLERK 60 mg Abdomen: LUQ enoxaparin (LOVENOX) syringe 60 mg Given 60 mg, Subcutaneous, DAILY, First dose on Fri03/20/21 at 2100, Until Discontinued, For patients undergoing surgery: Consult physician in advance - - enoxaparin is an anticoagulant and may need to be held for 12hr prior to surgery or invasive procedures. NOTE: This is a HIGH ALERT Medication. 60 mg Abdomen:RLQ Given 03/20/2021 8:41 PM ENCODING CLERK 03/22/2021 8:08 AM ENCODING CLERK 1 spray fluticasone propionate (FLONASE) nasal Given spray 1 spray 1 spray, Each Nostril, DAILY, First dos e on Fri03/15/21 at 0900, Until Discontinued 1 spray Given 03/21/2021 8:48 AM ENCODING CLERK 1 spray Given 03/20/2021 8:57 AM ENCODING CLERK 1 spray Given 03/19/2021 9:30 AM ENCODING CLERK 1 spray Given 03/18/2021 9:05 AM ENCODING CLERK 1 spray Given 03/17/2021 8:34 AM ENCODING CLERK 1 spray Given 03/16/2021 9:39 AM ENCODING CLERK 1 spray Given 03/15/2021 8:39 AM ENCODING CLERK 03/15/2021 8:24 AM ENCODING CLERK 20 g lactulose oral solution 20 g Given 20 g (30 mL), Oral, THREE TIMES DAILY, First dose on Fri03/14/21 at 2200, Until Discontinued 20 g Given 03/14/2021 9:58 PM ENCODING CLERK 03/22/2021 12:17 PM ENCODING CLERK 20 g lactulose oral solution 20 g Given 20 g (30 mL), Oral, EVERY 4 HOURS, First dose (after last modification) on Fri03/15/21 at 1200, Until Discontinued, Titrate to 3-4 BM's per day 20 g Given 03/22/2021 8:07 AM ENCODING CLERK 20 g Given 03/22/2021 3:52 AM ENCODING CLERK 20 g Given 03/22/2021 1:17 AM ENCODING CLERK 20 g Given 03/21/2021 8:20 PM ENCODING CLERK 20 g Given 03/21/2021 4:30 PM ENCODING CLERK 20 g Given 03/21/2021 12:50 PM ENCODING CLERK 20 g Given 03/21/2021 8:47 AM ENCODING CLERK 20 g Given 03/21/2021 4:02 AM ENCODING CLERK 20 g Given 03/21/2021 12:06 AM ENCODING CLERK 20 g Given 03/20/2021 8:41 PM ENCODING CLERK 20 g Given 03/20/2021 4:38 PM ENCODING CLERK 20 g Given 03/20/2021 12:20 PM ENCODING CLERK 20 g Given 03/20/2021 8:56 AM ENCODING CLERK 20 g Given 03/20/2021 3:15 AM ENCODING CLERK 20 g Given 03/19/2021 10:29 PM ENCODING CLERK 20 g Given 03/19/2021 4:21 PM ENCODING CLERK 20 g Given 03/19/2021 1:51 PM ENCODING CLERK 20 g Given 03/19/2021 9:30 AM ENCODING CLERK 20 g Given 03/18/2021 4:00 PM ENCODING CLERK 20 g Given 03/18/2021 9:00 AM ENCODING CLERK 20 g Given 03/18/2021 3:58 AM ENCODING CLERK 20 g Given 03/18/2021 12:08 AM ENCODING CLERK 20 g Given 03/17/2021 8:36 PM ENCODING CLERK 20 g Given 03/17/2021 3:08 PM ENCODING CLERK 20 g Given 03/17/2021 12:18 PM ENCODING CLERK 20 g Given 03/17/2021 8:32 AM ENCODING CLERK 20 g Given 03/17/2021 3:52 AM ENCODING CLERK 20 g Given 03/16/2021 11:49 PM ENCODING CLERK 20 g Given 03/16/2021 9:01 PM ENCODING CLERK 20 g Given 03/16/2021 3:38 PM ENCODING CLERK 20 g Given 03/16/2021 9:36 AM ENCODING CLERK 20 g Given 03/16/2021 4:51 AM ENCODING CLERK 20 g Given 03/16/2021 12:26 AM ENCODING CLERK 20 g Given 03/15/2021 8:05 PM ENCODING CLERK 20 g Given 03/15/2021 5:12 PM ENCODING CLERK 20 g Given 03/15/2021 2:31 PM ENCODING CLERK 03/22/2021 6:52 AM ENCODING CLERK 75 mcg levothyroxine (SYNTHROID) tablet 75 mcg Given 75 mcg, Oral, DAILY 30MIN BEFORE BREAKFAST, First dose on Toya 03/15/21 a t 0630, Until Discontinued, Give 1 hour before a meal. If patient is receiving tube feedings, hold tube feed 1hr befor e and 1hr after dose. 75 mcg Given 03/21/2021 6:03 AM ENCODING CLERK 75 mcg Given 03/20/2021 6:19 AM ENCODING CLERK 75 mcg Given 03/19/2021 9:28 AM ENCODING CLERK 75 mcg Given 03/18/2021 6:46 AM ENCODING CLERK 75 mcg Given 03/17/2021 6:26 AM ENCODING CLERK 75 mcg Given 03/16/2021 4:51 AM ENCODING CLERK 75 mcg Given 03/15/2021 5:14 AM ENCODING CLERK 03/15/2021 10:28 AM ENCODING CLERK 5 mg metoprolol (LOPRESSOR) injection 5 mg Given 5 mg, Intravenous, ONCE, 1 dose, On Fri03/15/21 at 1030, Hold for heart rate < 60 bpm PROTECT FROM LIGHT 03/22/2021 8:06 AM ENCODING CLERK 12.5 mg metoprolol tartrate tablet 12.5 mg Given 12.5 mg, Oral, TWICE DAILY, First dose on Fri03/15/21 at 1245, Until Discontinued, Hold for heart rate < 60 bpm or systolic BP < 90 12.5 mg Given 03/21/2021 8:47 AM ENCODING CLERK 12.5 mg Given 03/20/2021 12:20 PM ENCODING CLERK 12.5 mg Given 03/19/2021 10:28 PM ENCODING CLERK 12.5 mg Given 03/19/2021 9:29 AM ENCODING CLERK 12.5 mg Given 03/17/2021 8:36 PM ENCODING CLERK 12.5 mg Given 03/17/2021 8:33 AM ENCODING CLERK 12.5 mg Given 03/16/2021 9:02 PM ENCODING CLERK 12.5 mg Given 03/15/2021 8:04 PM ENCODING CLERK 12.5 mg Given 03/15/2021 2:31 PM ENCODING CLERK 03/22/2021 12:15 PM ENCODING CLERK 15 mg midodrine (PROAMATINE) tablet 15 mg Given 15 mg, Oral, THREE TIMES DAILY, First dose on Fri03/14/21 at 2200, Until Discontinued 15 mg Given 03/22/2021 8:06 AM ENCODING CLERK 15 mg Given 03/21/2021 4:31 PM ENCODING CLERK 15 mg Given 03/21/2021 12:50 PM ENCODING CLERK 15 mg Given 03/21/2021 8:47 AM ENCODING CLERK 15 mg Given 03/20/2021 4:38 PM ENCODING CLERK 15 mg Given 03/20/2021 12:20 PM ENCODING CLERK 15 mg Given 03/20/2021 8:56 AM ENCODING CLERK 15 mg Given 03/19/2021 5:36 PM ENCODING CLERK 15 mg Given 03/19/2021 1:51 PM ENCODING CLERK 15 mg Given 03/19/2021 9:28 AM ENCODING CLERK 15 mg Given 03/18/2021 8:38 PM ENCODING CLERK 15 mg Given 03/18/2021 6:01 PM ENCODING CLERK 15 mg Given 03/18/2021 11:46 AM ENCODING CLERK 15 mg Given 03/17/2021 8:37 PM ENCODING CLERK 15 mg Given 03/17/2021 3:07 PM ENCODING CLERK 15 mg Given 03/17/2021 8:32 AM ENCODING CLERK 15 mg Given 03/16/2021 9:04 PM ENCODING CLERK 15 mg Given 03/16/2021 3:42 PM ENCODING CLERK 15 mg Given 03/16/2021 9:38 AM ENCODING CLERK 15 mg Given 03/15/2021 8:04 PM ENCODING CLERK 15 mg Given 03/15/2021 2:31 PM ENCODING CLERK 15 mg Given 03/15/2021 8:24 AM ENCODING CLERK 15 mg Given 03/14/2021 9:58 PM ENCODING CLERK 03/20/2021 6:42 AM ENCODING CLERK 4 mg ondansetron (ZOFRAN ODT) rapid dissolve Given tablet 4 mg 4 mg, Oral, EVERY 6 HOURS PRN, Startin g on Fri03/20/21 at 0637, Until Toya 03/22/21 at 1541, Nausea/Vomiting PO, Place on tongue and allow to dissolve. 03/22/2021 8:36 AM ENCODING CLERK 4 mg ondansetron (ZOFRAN) injection 4 mg Given 4 mg, Intravenous, EVERY 6 HOURS PRN, Starting on Fri03/20/21 at 0637, Until Toya 03/22/21 at 1541, Nausea/Vomiting Injectable 03/22/2021 8:07 AM ENCODING CLERK 5 mg oxybutynin chloride (DITROPAN) tablet 5 Given mg 5 mg, Oral, THREE TIMES DAILY, First dose on Fri03/14/21 at 2100, Until Discontinued 5 mg Given 03/21/2021 8:21 PM ENCODING CLERK 5 mg Given 03/21/2021 2:30 PM ENCODING CLERK 5 mg Given 03/21/2021 8:51 AM ENCODING CLERK 5 mg Given 03/20/2021 8:40 PM ENCODING CLERK 5 mg Given 03/20/2021 4:38 PM ENCODING CLERK 5 mg Given 03/20/2021 8:56 AM ENCODING CLERK 5 mg Given 03/19/2021 10:28 PM ENCODING CLERK 5 mg Given 03/19/2021 2:55 PM ENCODING CLERK 5 mg Given 03/19/2021 10:12 AM ENCODING CLERK 5 mg Given 03/18/2021 4:00 PM ENCODING CLERK 5 mg Given 03/18/2021 9:05 AM ENCODING CLERK 5 mg Given 03/17/2021 8:37 PM ENCODING CLERK 5 mg Given 03/17/2021 3:08 PM ENCODING CLERK 5 mg Given 03/17/2021 8:32 AM ENCODING CLERK 5 mg Given 03/16/2021 9:04 PM ENCODING CLERK 5 mg Given 03/16/2021 3:38 PM ENCODING CLERK 5 mg Given 03/16/2021 9:38 AM ENCODING CLERK 5 mg Given 03/15/2021 8:05 PM ENCODING CLERK 5 mg Given 03/15/2021 2:31 PM ENCODING CLERK 5 mg Given 03/15/2021 8:25 AM ENCODING CLERK 5 mg Given 03/14/2021 9:58 PM ENCODING CLERK 03/22/2021 8:06 AM ENCODING CLERK [address] (PROTONIX) tablet 40 mg Given 40 mg, Oral, TWICE DAILY, First dose on Fri03/14/21 at 2200, Until Discontinued, Do not crush or chew tablet. 40 mg Given 03/21/2021 8:21 PM ENCODING CLERK 40 mg Given 03/21/2021 8:47 AM ENCODING CLERK 40 mg Given 03/20/2021 8:40 PM ENCODING CLERK 40 mg Given 03/20/2021 8:57 AM ENCODING CLERK 40 mg Given 03/19/2021 10:29 PM ENCODING CLERK 40 mg Given 03/19/2021 9:29 AM ENCODING CLERK 40 mg Given 03/18/2021 8:39 PM ENCODING CLERK 40 mg Given 03/18/2021 9:05 AM ENCODING CLERK 40 mg Given 03/17/2021 8:37 PM ENCODING CLERK 40 mg Given 03/17/2021 8:32 AM ENCODING CLERK 40 mg Given 03/16/2021 9:04 PM ENCODING CLERK 40 mg Given 03/16/2021 9:37 AM ENCODING CLERK 40 mg Given 03/15/2021 8:05 PM ENCODING CLERK 40 mg Given 03/15/2021 8:25 AM ENCODING CLERK 40 mg Given 03/14/2021 9:58 PM ENCODING CLERK 03/17/2021 12:18 PM ENCODING CLERK 40 mEq potassium chloride SR (K-DUR) tablet 40 Given mEq 40 mEq, Oral, EVERY 4 HOURS, 2 doses, First dose on Fri03/17/21 at 0830, Las t dose on Fri03/17/21 at 1200, Give with meal or full glass of water 40 mEq Given 03/17/2021 8:33 AM ENCODING CLERK 03/21/2021 8:47 AM ENCODING CLERK 60 mEq potassium chloride SR (K-DUR) tablet 60 Given mEq 60 mEq, Oral, ONCE, 1 dose, On Fri03/21/21 at 0745, Give with meal or ful l glass of water 03/22/2021 8:06 AM ENCODING CLERK 550 mg rifAXIMin (XIFAXAN) tablet 550 mg Given 550 mg, Oral, TWICE DAILY, First dose o n 03/19/21 at 1445, Until Discontinue d 550 mg Given 03/21/2021 8:21 PM ENCODING CLERK 550 mg Given 03/21/2021 8:47 AM ENCODING CLERK 550 mg Given 03/20/2021 8:40 PM ENCODING CLERK 550 mg Given 03/20/2021 8:56 AM ENCODING CLERK 550 mg Given 03/19/2021 10:28 PM ENCODING CLERK 550 mg Given 03/19/2021 2:55 PM ENCODING CLERK 03/21/2021 2:35 PM ENCODING CLERK 1 spray saliva, synthetic (MOUTHKOTE) oral spray Given 1 spray 1 spray, Mouth/Throat, NEEDED, Starting on Fri03/21/21 at 1119, Until [facility] 03/22/21 at 1541, Dry Mouth 03/22/2021 8:07 AM ENCODING CLERK 100 mg sertraline (ZOLOFT) tablet 100 mg Given 100 mg, Oral, TWICE DAILY, First dose o n Fri03/14/21 at 2200, Until Discontinue d 100 mg Given 03/21/2021 8:21 PM ENCODING CLERK 100 mg Given 03/21/2021 8:47 AM ENCODING CLERK 100 mg Given 03/20/2021 8:40 PM ENCODING CLERK 100 mg Given 03/20/2021 8:56 AM ENCODING CLERK 100 mg Given 03/19/2021 10:28 PM ENCODING CLERK 100 mg Given 03/19/2021 9:29 AM ENCODING CLERK 100 mg Given 03/18/2021 8:39 PM ENCODING CLERK 100 mg Given 03/18/2021 9:05 AM ENCODING CLERK 100 mg Given 03/17/2021 8:37 PM ENCODING CLERK 100 mg Given 03/17/2021 8:33 AM ENCODING CLERK 100 mg Given 03/16/2021 9:03 PM ENCODING CLERK 100 mg Given 03/16/2021 9:37 AM ENCODING CLERK 100 mg Given 03/15/2021 8:04 PM ENCODING CLERK 100 mg Given 03/15/2021 8:25 AM ENCODING CLERK 100 mg Given 03/14/2021 9:59 PM ENCODING CLERK 03/20/2021 4:38 PM ENCODING CLERK 1,000 mL 100 mL/hr sodium chloride 0.9 % infusion Given - New 1,000 mL, 1,000 mL, Intravenous, at 100 Bag mL/hr, ONCE, 1 dose, On Fri03/20/21 at 1515 03/21/2021 12:54 PM ENCODING CLERK 1,000 mL 125 mL/hr sodium chloride 0.9 % infusion Given - New 1,000 mL, 1,000 mL, Intravenous, at 125 Bag mL/hr, ONCE, 1 dose, On Fri03/21/21 at 1330 03/16/2021 9:37 AM ENCODING CLERK 75 mg spironolactone (ALDACTONE) tablet 75 mg Given 75 mg, Oral, TWICE DAILY, First dose on Fri03/14/21 at 2200, Until Discontinued, NURSING: Please educate patient and document: Avoid using salt substitutes which have a high potassium content (Nu-Salt). 75 mg Given 03/15/2021 8:04 PM ENCODING CLERK 75 mg Given 03/15/2021 8:25 AM ENCODING CLERK 75 mg Given 03/14/2021 9:58 PM ENCODING CLERK 03/17/2021 1:28 AM ENCODING CLERK 50 mg traMADoL (ULTRAM) tablet 50 mg Given 50 mg, Oral, ONCE, 1 dose, On 03/17/21 at 0045 03/18/2021 4:57 AM ENCODING CLERK 50 mg traMADoL (ULTRAM) tablet 50 mg Given 50 mg, Oral, ONCE, 1 dose, On Fri03/18/21 at 0415 03/16/2021 9:03 PM ENCODING CLERK 2 mg warfarin (COUMADIN) tablet 2 mg Given 2 mg, Oral, AT BEDTIME DAILY, First dos e (after last modification) on Fri03/16/21 at 2100, Until Discontinued, NURSING: Provide patient with warfarin education leaflet. Do not give with cranberry juice. NOTE: This is a HIGH ALERT Medication. 03/19/2021 10:28 PM ENCODING CLERK 2 mg warfarin (COUMADIN) tablet 2 mg Given 2 mg, Oral, AT BEDTIME DAILY, First dos e on 03/18/21 at 2100, Until Discontinued, NURSING: Provide patient with warfarin education leaflet. Do not give with cranberry juice. NOTE: This i s a HIGH ALERT Medication. 2 mg Given 03/18/2021 8:39 PM ENCODING CLERK 03/21/2021 8:21 PM ENCODING CLERK 3 mg warfarin (COUMADIN) tablet 3 mg Given 3 mg, Oral, AT BEDTIME DAILY, First dos e (after last modification) on Fri03/20/21 at 2100, Until Discontinued, NURSING: Provide patient with warfarin education leaflet. Do not give with cranberry juice. NOTE: This is a HIGH ALERT Medication. 3 mg Given 03/20/2021 8:39 PM ENCODING CLERK 03/15/2021 8:05 PM ENCODING CLERK 4 mg warfarin (COUMADIN) tablet 4 mg Given 4 mg, Oral, AT BEDTIME DAILY, First dos e on Fri03/14/21 at 2215, Until Discontinued, NURSING: Provide patient with warfarin education leaflet. Do not give with cranberry juice. NOTE: This i s a HIGH ALERT Medication. 4 mg Given 03/14/2021 9:58 PM ENCODING CLERK warfarin, pharmacy to manage PER PHARMACY, 999 doses, Starting on Fr i 03/16/21 at 1231, Until Toya 03/22/21 at 1541, Warfarin Indication: Prosthetic cardiac valve, A fib/A flutter, INR Goal: INR 2-3, This order is for informational use only. See separate order for administration and documentation of warfarin. NOTE: This i s a HIGH ALERT Medication. documented in this encounter Discontinued Medications Start Date End Date Medication Sig Discontinue Reason 02/06/2021 03/22/2021 empagliflozin (JARDIANCE) Take one 10 mg tablet tablet by mouth daily. 12/30/2020 03/22/2021 warfarin (COUMADIN) 1 mg Take two Reorder tablet tablets by mouth daily. 02/06/2021 03/22/2021 bumetanide (BUMEX) 1 mg Take five Reorder tablet tablets by mouth twice daily for 360 days. 02/21/2021 03/22/2021 spironolactone Take three Reorder (ALDACTONE) 25 mg tablet tablets by mouth twice daily. Take with food. 03/22/2021 03/22/2021 bumetanide (BUMEX) 1 mg Take two Reorder tablet tablets by mouth twice daily for 360 days. Will need creatinine/r enal function rechecked on 03/25 prior to resuming diuretics. Cardiology (Dr. Nitish Starr) managing. 03/22/2021 03/22/2021 spironolactone Take one Reorder (ALDACTONE) 25 mg tablet tablet by mouth twice daily. Take with food.To start 03/24/2021. Will need creatinine/r enal function rechecked on 03/25 prior to resuming diuretics. Cardiology (Dr. Nitish Starr) managing. 03/22/2021 03/22/2021 enoxaparin (LOVENOX) 60 Inject 0.6 mg syringe mL under the skin every 12 hours. documented as of this encounter Historical Medications * This list may reflect changes made after this encounter. Start Date End Date Medication Sig Dispensed Refills acetaminophen (TYLENOL Take 1,000 mg 0 EXTRA STRENGTH) 500 mg by mouth tablet every 4 hours as needed for Pain. Max of 4,000 mg of acetaminophen in 24 hours. added in this encounter Active and Recently Administered Medications Times are shown in ENCODING CLERK. 03/21/2021 03/22/2021 Medication Order 03/20/2021 dapagliflozin (FARXIGA) tablet 10 mg 0856 (Given - (CANCELED) Provider: Coty 10 mg, Oral, DAILY, First dose on Toyaviviane Gaxiola RN) 03/15/21 at 0900, Until Discontinued 2021 (Given - Provider: Jose L Andrews RN) 0832 (MAY Hold - Provider: Kendrick, Orders Di scontinue - Reason: Patient not available/off unit)1057 (MAR Unhold - Provider: Kendrick, Orders Discontinue) enoxaparin (LOVENOX) syringe 60 mg 2040 (Given - 60 mg, Subcutaneous, DAILY, First dose Provider: Joaquin grimes on Fri03/20/21 at 2100, Until CHRYSTAL Andrews) Discontinued, For patients undergoing surgery: Consult physician in advance - - enoxaparin is an anticoagulant and may need to be held for 12hr prior to surgery or invasive procedures. NOTE: This is a HIGH ALERT Medication. 0848 (Given - Provider: Jojo Mathis) 0808 (Given - Provider: Micheal myers RN)0832 (MAY Hold - Provider: Kendrick, Orders Discontinue - Reason: Patient not available/off unit)1057 (MAR Unhold - Provider: Kendrick, Orders Discontinue) fluticasone propionate (FLONASE) nasal 0857 (Given - spray 1 spray Provider: Coty 1 spray, Each Nostril, DAILY, First dose CHRYSTAL Gaxiola) on Toya 03/15/21 at 0900, Until Discontinued 0006 (Given - Provider: Jose L Andrews RN)0402 (Given - Provider: Jose L Andrews RN)0847 (Given - Provider: Summer Elizalde RN)1250 (Given - Provider: Summer Elizalde, CHRYSTAL)1630 (Given - Provider: Summer Elizalde, RN)2020 (Given - Provider: Jose L Andrews RN) 0117 (Given - Provider: Jose L Andrews RN)0352 (Given - Provider: Jose L Andrews RN)0807 (Given - Provider: Micheal Morgan, CHRYSTAL)0832 (MAY Hold - Provider: Kendrick, Orders Discontinue - Reason: Patient not available/off unit)1057 (MAR Unhold - Provider: Kendrick, Orders Discontinue)1217 (Given - Provider: Norah Morgan RN) lactulose oral solution 20 g 0053 (Med Not Given 20 g (30 mL), Oral, EVERY 4 HOURS, - Provider: Suni ia First dose (after last modification) on Jana kirby RN [facility] 03/15/21 at 1200, Until - Reason: Order Discontinued, Titrate to 3-4 BM's per parameters not day met)0315 (Given - Provider: Gudelia Patterson RN)0856 (Given - Provider: Coty Gaxiola RN)1220 (Given - Provider: Coty Gaxiola, CHRYSTAL)1638 (Given - Provider: Coty Gaxiola, RN)2041 (Given - Provider: Jose L Andrews RN) 0603 (Given - Provider: Jose L Andrews RN) 0652 (Given - Provider: Jose L Andrews RN)0832 (MAY Hold - Provider: Kendrick, Orders Discontinue - Reason: Patient not available/off unit)1057 (MAY Unhold - Provider: Kendrick, Orders Discontinue) levothyroxine (SYNTHROID) tablet 75 mcg 0619 (Given - 75 mcg, Oral, DAILY 30MIN BEFORE Provider: Gudelia BREAKFAST, First dose on Toya 03/15/21 at Wood montoya RN) 0630, Until Discontinued, Give 1 hour before a meal. If patient is receiving tube feedings, hold tube feed 1hr befor e and 1hr after dose. 0847 (Given - Provider: Jojo Mathis)2145 (Med Not Given - Provider: Jose L Andrews RN - Reason: Other (Comment) - Comment: LOW BP) 0806 (Given - Provider: Micheal myers RN) metoprolol tartrate tablet 12.5 mg 1220 (Given - 12.5 mg, Oral, TWICE DAILY, First dose Provider: All ie on Fri03/15/21 at 1245, Until CHRYTSAL Gaxiola)2038 (Med Discontinued, Hold for heart rate < 60 Not Given - bpm or systolic BP < 90 Provider: Jose L Andrews RN - Reason: Contraindicated) 0847 (Given - Provider: Jojo Mathis)1250 (Given - Provider: Summer Elizalde RN)1631 (Given - Provider: Summer Elizalde RN) 0806 (Given - Provider: Micheal myers RN)0832 (MAR Hold - Provider: Kendrick, Orders Discontinue - Reason: Patient not available/off unit)1057 (MAR Unhold - Provider: Kendrick, Orders Discontinue)1215 (Given - Provider: Micheal Morgan RN) midodrine (PROAMATINE) tablet 15 mg 0856 (Given - 15 mg, Oral, THREE TIMES DAILY, First Provider: Godwin e dose on Fri03/14/21 at 2200, Until CHRYSTAL Gaxiola)1220 Discontinued (Given - Provider: Coty Gaxiola RN)1638 (Given - Provider: Coty Gaxiola RN) 0851 (Given - Provider: Jojo Mathis)1430 (Given - Provider: Summer Elizalde RN)202 (Given - Provider: Jose L Andrews RN) 0807 (Given - Provider: Micheal myers RN)0832 (MAR Hold - Provider: Kendrick, Orders Discontinue - Reason: Patient not available/off unit)1057 (MAR Unhold - Provider: Kendrick, Orders Discontinue) oxybutynin chloride (DITROPAN) tablet 5 0856 (Given - mg Provider: Coty 5 mg, Oral, THREE TIMES DAILY, First CHRYSTAL Gaxiola)1638 dose on Fri03/14/21 at 2100, Until (Given - Provide r: Discontinued Coty Gaxiola RN)2040 (Given - Provider: Jose L Andrews RN) 0847 (Given - Provider: Jojo Mathis)2020 (Given - Provider: Jose L Andrews RN) 0806 (Given - Provider: Micheal myers RN)0832 (MAY Hold - Provider: Kendrick, Orders Discontinue - Reason: Patient not available/off unit)105 (MAR Unhold - Provider: Kendrick, Orders Discontinue) pantoprazole DR (PROTONIX) tablet 40 mg 0857 (Given - 40 mg, Oral, TWICE DAILY, First dose on Provider: Michael verdugo Fri03/14/21 at 2200, Until CHRYSTAL Gaxiola)2039 Discontinued, Do not crush or chew (Given - Provider : tablet. Jose L Andrews RN) 0847 (Given - Provider: Jojo Mathis) potassium chloride SR (K-DUR) tablet 60 mEq (COMPLETED) 60 mEq, Oral, ONCE, 1 dose, On Fri03/21/21 at 0745, Give with meal or ful l glass of water 0847 (Given - Provider: Jojo Mathis)2020 (Given - Provider: Jose L Andrews RN) 0806 (Given - Provider: Micheal myers RN) rifAXIMin (XIFAXAN) tablet 550 mg 0856 (Given - 550 mg, Oral, TWICE DAILY, First dose on Provider: Sussy schumacher Fri03/19/21 at 1445, Until Discontinued CHRYSTAL Gaxiola) 2039 (Given - Provider: Jsoe L Andrews RN) 0847 (Given - Provider: Jojo Mathis)2020 (Given - Provider: Jose L Andrews RN) 0807 (Given - Provider: Micheal myers RN)0832 (MAY Hold - Provider: Kendrick, Orders Discontinue - Reason: Patient not available/off unit)1057 (MAR Unhold - Provider: Kendrick, Orders Discontinue) sertraline (ZOLOFT) tablet 100 mg 0856 (Given - 100 mg, Oral, TWICE DAILY, First dose on Provider: Sussy schumacher Fri03/14/21 at 2200, Until Discontinued CHRYSTAL Gaxiola) 2039 (Given - Provider: Jose L Andrews RN) sodium chloride 0.9 % infusion 1638 (Given - New (COMPLETED) Bag - Provider: 1,000 mL, 1,000 mL, Intravenous, at 100 Coty Gaxiola RN) mL/hr, ONCE, 1 dose, On Fri03/20/21 at 1515 1254 (Given - New Bag - Provider: Summer Elizalde RN) sodium chloride 0.9 % infusion (COMPLETED) 1,000 mL, 1,000 mL, Intravenous, at 125 mL/hr, ONCE, 1 dose, On Fri03/21/21 at 1330 2020 (Given - Provider: Jose L Andrews RN) 0832 (MAY Hold - Provider: Kendrick, Orders Di scontinue - Reason: Patient not available/off unit)1057 (MAY Unhold - Provider: Kendrick, Orders Discontinue) warfarin (COUMADIN) tablet 3 mg 2038 (Given - 3 mg, Oral, AT BEDTIME DAILY, First dose Provider: Jojo alcala (after last modification) on Fri CHRYSTAL Andrews) 03/20/21 at 2100, Until Discontinued, NURSING: Provide patient with warfarin education leaflet. Do not give with cranberry juice. NOTE: This is a HIGH ALERT Medication. 03/21/2021 03/22/2021 Medication Order 03/20/2021 0122 (Given - Provider: Jose L Andrews RN)0851 (Given - Provider: Summer Elizalde, CHRYSTAL)1430 (Given - Provider: Summer Elizalde RN)2020 (Given - Provider: Jose L Andrews RN) 0806 (Given - Provider: Micheal myers RN)0832 (MAY Hold - Provider: Kendrick, Orders Discontinue - Reason: Patient not available/off unit)1057 (MAY Unhold - Provider: Kendrick, Orders Discontinue) acetaminophen (TYLENOL EXTRA STRENGTH) 0315 (Given - tablet 1,000 mg Provider: Gudelia 1,000 mg, Oral, EVERY 6 HOURS PRN, [place], Starting on 03/19/21 at 1909, Until RN)0856 (Giv en - Toya 03/22/21 at 1541, Pain non-opioid: Provider: All ie may be used alone or in combination with Minor, CHRYSTAL) 204 opioid analgesia, TOTAL ACETAMINOPHEN (Given - Provi danielle: DOSE NOT TO EXCEED 4GM DAILY Jose L Andrews RN) 0930 (Given - New Bag - Provider: Kavita Lozada RN) albumin 25% injection (COMPLETED) INTRA-PROCEDURE MED(CONT), Starting on Fri03/22/21 at 0930, Until Fri 1 at 0930 0832 (MAY Hold - Provider: Kendrick, Orders Di scontinue - Reason: Patient not available/off unit)0836 (See Alternative - Provider: Kamille Carrasco, CHRYSTAL)1057 (MAY Unhold - Provider: Kendrick, Orders Discontinue) ondansetron (ZOFRAN ODT) rapid dissolve 0642 (Given - tablet 4 mg(Linked Group 1) Provider: Gudelia 4 mg, Oral, EVERY 6 HOURS PRN, Starting Wood montoya RN) on Fri03/20/21 at 0637, Until Fri03/22/21 at 1541, Nausea/Vomiting PO, Place on tongue and allow to dissolve. 0832 (MAY Hold - Provider: Kendrick, Orders Di scontinue - Reason: Patient not available/off unit)0836 (Given - Provider: Kamille Carrasco RN)1057 (MAY Unhold - Provider: Kendrick, Orders Discontinue) ondansetron (ZOFRAN) injection 4 0642 (See mg(Linked Group 1) Alternative - 4 mg, Intravenous, EVERY 6 HOURS PRN, Provider: Sin tia Starting on Fri03/20/21 at 0637, Until Jana kirby RN) Toya 03/22/21 at 1541, Nausea/Vomiting Injectable 1435 (Given - Provider: Jojo Mathis) 0832 (MAY Hold - Provider: Kendrick, Orders Di scontinue - Reason: Patient not available/off unit)1057 (MAY Unhold - Provider: Kendrick, Orders Discontinue) saliva, synthetic (MOUTHKOTE) oral spra y 1 spray 1 spray, Mouth/Throat, NEEDED, Starting on Fri03/21/21 at 1119, Until Fri03/22/21 at 1541, Dry Mouth 0832 (MAY Hold - Provider: Kendrick, Orders Di scontinue - Reason: Patient not available/off unit)1057 (MAY Unhold - Provider: Kendrick, Orders Discontinue) warfarin, pharmacy to manage PER PHARMACY, 999 doses, Starting on 03/16/21 at 1231, Until Fri03/22/21 at 1541, Warfarin Indication: Prosthetic cardiac valve, A fib/A flutter, INR Goal: INR 2-3, This order is for informational use only. See separate order for administration and documentation of warfarin. NOTE: This i s a HIGH ALERT Medication. Order Group 1: ondansetron (ZOFRAN ODT) rapid dissolve tablet 4 mgJump to med 4 mg, Oral, EVERY 6 HOURS PRN, Startin g on e 03/20/21 at 0637, Until Toya 03/22/21 at 1541, Nausea/Vomiting PO
Place on tongue a nd allow to dissolve.
Or ondansetron (ZOFRAN) injection 4 mgJump to med 4 mg, Intravenous, EVERY 6 HOURS PRN, Starting on Fri03/20/21 at 0637, Until Toya 03/22/21 at 1541, Nausea/Vomiting Injectable documented in this encounter Orders First Ordered Date Medications Ordered That Might Not Have Count Last Ordered Date Been Administered SODIUM CHLORIDE 0.9 % IV SOLP (Cabinet 1 03/18/2021 Override) warfarin, pharmacy to manage 1 1 WATER FOR INJECTION, STERILE IJ SOLN 1 1 05/16/2020 (Cabinet Override) First Ordered Date Procedures Count Last Ordered Date CONSULT VASCULAR ACCESS TEAM 1 1 First Ordered Date Diet Count Last Ordered Date DISCHARGE DIET FLUID RESTRICTION 1 03/22 DISCHARGE DIET LOW SODIUM 2 03/22/2021 First Ordered Date Nursing Count Last Ordered Date DISCHARGE ACTIVITY NORMAL 2 03/22/2021 DISCHARGE CONTACT 2 03/22/2021 DISCHARGE EDUCATION 1 03/22/2021 DISCHARGE SIGNS/SYMPTOMS 2 03/22/2021 WEIGH PATIENT 1 03/14/2021 First Ordered Date Consult Count Last Ordered Date 03/15/2021 CONSULT INTERVENTIONAL RADIOLOGY 2 03/21 PHYSICIAN CONSULT NEPHROLOGY PHYSICIAN 1 1 CONSULT HEPATOLOGY PHYSICIAN 1 First Ordered Date OT Count Last Ordered Date OT CONSULT OCCUPATIONAL THERAPY 1 2020 First Ordered Date PT Count Last Ordered Date PT CONSULT PHYSICAL THERAPY 1 03/18/2021 First Ordered Date Admission Count Last Ordered Date ADMIT TO INPATIENT (NO BED REQUEST) 1 First Ordered Date Discharge Count Last Ordered Date DISCHARGE PATIENT NOW 1 03/22/2021 [facility] First Ordered Date Equipment Count Last Ordered Date PUMP IV CONTROL UNIT W/MODULES 1 021 First Ordered Date Vital Signs Count Last Ordered Date VITAL SIGNS 1 03/14/2021 First Ordered Date Activity Count Last Ordered Date MOBILITY 1 03/14/2021 First Ordered Date SPECIALITY EQUIPMENT Count Last Ordered Date COMMODE STANDARD 300LBS MAX 1 03/15/2021 First Ordered Date Order Set Communication Count Last Ordered D ate VTE DRUG PROPHYLAXIS CONTRAINDICATED 1 1 05/15/2020 First Ordered Date Appointment Request Count Last Ordered Date APPOINTMENT REQUEST: [facility] 1 1 (MOB) First Ordered Date Intake & Output Count Last Ordered Date INTAKE AND OUTPUT 1 03/14/[address] & Maintain Count Last Ordered Date PLACE AND MAINTAIN SCD 1 03/14/2021 First Ordered Date ADT Patient Update Count Last Ordered Date CHANGE SERVICE / LEVEL OF CARE (NO BED 3 03/14/2021 REQUEST) documented in this encounter Additional Health Concerns Noted Time Assessment 03/22/2021 8:43 AM ENCODING CLERK A fall risk assessment has been complet ed for the patient 12/07/2020 3:18 PM CDT PHQ-2 Depression Total Score: 2 documented as of this encounter Care Teams Start Date End Date Local Owner Operator Truck Driver Relationship Specialty 05/15/20 Dulce Maria Gray MD PCP - [address] [address] 06/13/20 Riley Hopson MD Consulting Cardiovascul [address] Physician ar Disease [address] [place], [place] [address] 12/20/20 Gino Pandya, REHAB SPECIALIST-HAIR DRESSER Nurse Nurse [address] [address] 01/19/21 Teri Brandon Continuum of Care Case Management documented as of this encounter
--- OUTSIDE RECORDS SUMMARY | 2021-04-14 19:01 | XMS REPORT | Encounter Summary ---
Author Author [facility] Address Unknown Phone Unavailable Care Team Providers Care Ice Handler Name Role Phone Self, Garfield OLVERA PCP Riley Hopson MD [phone] Gino Pandya APRN-DESIGN AND SALES CONSULTANT [phone] Teri Brandon [phone] Unavailable Reason for Visit * Reason Comments Records Request [place] [facility] Encounter Details Care Team Description Date Type Department Helen Waggoner, CHRYSTAL Records Request ([place] [facility]) 03/12/2021 Documentation Cardiology: [facility] 4000 [facility] 1, [address] [place] [address] Social History Date Tobacco Use Types Packs/Day Years Used Never Smoker Smokeless Tobacco: Never Used Comments Alcohol Use Standard Drinks/Week Not Currently 0 (1 standard drink = 0.6 o z pure alcohol) Sex Assigned at Date Recorded Female 06/01/2020 1:44 PM CUSTOMER SALES SERVICE MANAGER Date Recorded COVID-19 Exposure Response 03/08/2021 7:56 AM CUSTOMER SALES SERVICE MANAGER In the last month, have you [...] Helen Waggoner RN - 03/12/2021 11:09 AM CUSTOMER SALES SERVICE MANAGER To: [place] [facility] [place] RE: Zaria Paulson : 1960 Medical Records request for continuity of care. Zaria Paulson is scheduled for an appointment on 03/14/21 with Basilia Gaitan APRN in the Advanced Heart Failure clinic at [facility]. Please fax records to [phone] [facility] CVM - Advanced Heart Failure/Heart Transplant/VAD Clinic [address] [place] [place] [address] Ph. [phone] Fax. [phone] Requested Records: o Recent Cardiac Testing (ECHO, Chest CT, Cardiac MRI, Cardiac PET, cath reports , Stress test, Thallium, Arterial/Venous studies, Pulmonary function testing, et c) o Cardiac Device (ICD/PPM) information (if applicable): last device check, impla ntation information, recycling operator/serial number information o EKGs within the [...] this transmission in error, immediately notify the Auto Body Painter at [phone] to arrange for the return or destruction of the information and all copies. 4000 [facility] [id number] | [place], [place] [address] | Phone | | [employer] OMER SALES SERVICE MANAGER documented in this encounter Plan of Treatment Care Team Description Date Type Specialty Carlos Longo MD 4000 [facility] C[address]955 [place] [address] Giancarlo Meneses MD 4000 [facility] 2nd Flr [place], [place] [id number] Clarissa Harmon Stephanie, RT(R)(),LRT 04/16/2021 Hospital Radiology Encounter documented as of this encounter Goals Goal Patient Associated Recent Progress Patient-Stat Aut hor Goal Type Problems ed? Improve [facility] On track (03/20/2021 Yes Sheldon, 1:41 PM CUSTOMER SALES SERVICE MANAGER) CHRYSTAL Singh Improve [facility] On track (03/20/2021 Yes Sheldon, 1:41 PM CUSTOMER SALES SERVICE MANAGER) CHRYSTAL Singh Note: "To get better and stronger." documented as of this encounter Visit Diagnoses Not on filedocumented in this encounter Additional Health Concerns Noted Time Assessment 03/08/2021 8:00 AM CUSTOMER SALES SERVICE MANAGER A fall risk assessment has been complet ed for the patient 12/07/2020 3:18 PM CDT PHQ-2 Depression Total Score: 2 documented as of this encounter Care Teams Start Date End Date Ice Handler Relationship Specialty 05/15/20 Garfield Gray MD PCP - General [address] [phone] 06/13/20 Riley Hopson MD Consulting Cardiovascul [address] Physician ar Disease [address] [place] [address] 12/20/20 Gino Pandya, DIE REPAIR MACHINIST-DESIGN AND SALES CONSULTANT Nurse Nurse 4000 [facility] Practitioner [facility] , [place] [address] 01/19/21 Teri Brandon Continuum of Care Case Management documented as of this encounter
--- OUTSIDE RECORDS SUMMARY | 2021-04-14 19:01 | XMS REPORT | Encounter Summary ---
Author Author [facility] Organization [facility] Address Unknown Phone Unavailable Care Team Providers Care Drum Drier Operator Name Role Phone Self, Garfield OLVERA PCP Riley Hopson MD [phone] Gino Pandya HOME HEALTH CARE CASE MANAGER-SUPERVISOR SALVAGE [phone] Teri Brandon [phone] Unavailable Encounter Details Care Team Description Date Type Department Kian Walker 03/19/2021 Documentation [address] [address] Social History Date Tobacco Use Types Packs/Day Years Used Never Smoker Smokeless Tobacco: Never Used Comments Alcohol Use Standard Drinks/Week Not Currently 0 (1 standard drink = 0.6 o z pure alcohol) Sex Assigned at Date Recorded Female 06/01/2020 1:44 PM STRIPPER OPAQUER Date Recorded COVID-19 Exposure Response 03/14/2021 2:50 PM STRIPPER OPAQUER In the last month, have you been [...] Progress Notes * Kian Walker - 03/19/2021 11:37 AM STRIPPER OPAQUER The Prior Authorization for Xifaxan was approved for Zaria Paulson until 08/23. The copay is $4.00. [facility] Patient Advocate [phone] PPER OPAQUER documented in this encounter Plan of Treatment Care Team Description Date Type Specialty Carlos Longo MD 4000 [facility] [address] [place] [address] Giancarlo Meneses MD 4000 [facility] 2nd Flr [place], [place] [phone] Clarissa Harmon Stephanie, RT(R)(),LRT 04/16/2021 Hospital Radiology Encounter documented as of this encounter Goals Goal Patient Associated Recent Progress Patient-Stat Aut hor Goal Type Problems ed? Improve [facility] On track (03/20/2021 Yes Sheldon, 1:41 PM STRIPPER OPAQUER) CHRYSTAL Singh [facility] On track (03/20/2021 Yes Sheldon, 1:41 PM STRIPPER OPAQUER) CHRYSTAL Singh Note: "To get better and stronger." documented as of this encounter Visit Diagnoses Not on filedocumented in this encounter Additional Health Concerns Noted Time Assessment 03/19/2021 10:24 PM STRIPPER OPAQUER A fall risk assessment has been complet ed for the patient 12/07/2020 3:18 PM CDT PHQ-2 Depression Total Score: 2 documented as of this encounter Care Teams Start Date End Date Drum Drier Operator Relationship Specialty 05/15/20 Garfield Gray MD PCP - General [address] [address] 06/13/20 Riley Hopson MD Consulting Cardiovascul [address] Physician ar Disease [address] [place] [address] 12/20/20 Gino Pandya, HOME HEALTH CARE CASE MANAGER-SUPERVISOR SALVAGE Nurse Nurse [address] [place] [address] Practitioner [place] [id number] , [place] [address] 01/19/21 Teri Brandon Continuum of Care Case Management documented as of this encounter
--- OUTSIDE RECORDS SUMMARY | 2021-04-14 19:01 | XMS REPORT | Encounter Summary ---
Author Author [facility] Organization [facility] Address Unknown Phone Unavailable Care Team Providers Care Homicide Squad Commanding Officer Name Role Phone Self, Garfield OLVERA PCP Riley Hopson MD [phone] Gino Pandya OPERATING SYSTEMS SPECIALIST-SCRAP IRON CUTTER [phone] Teri Brandon [phone] Unavailable Encounter Details Care Team Description Date Type Department 03/14/2021 Hospital Imaging: [facility] [place] [address], [address] [place] [address] Social History Date Tobacco Use Types Packs/Day Years Used Never Smoker Smokeless Tobacco: Never Used Comments Alcohol Use Standard Drinks/Week Not Currently 0 (1 standard drink = 0.6 o z pure alcohol) Sex Assigned at Date Recorded Female 06/01/2020 1:44 PM NAUTICAL INSTRUMENT MECHANIC Date Recorded COVID-19 Exposure Response 03/14/2021 2:50 PM NAUTICAL INSTRUMENT MECHANIC In the last month, have you [...] Date Type Specialty Carlos Longo MD 4000 [facility] [place] [address] Giancarlo Meneses MD 4000 [facility] 2nd [place], [place] [phone] Clarissa Harmon Stephanie, RT(R)(),LRT 04/16/2021 Hospital Radiology Encounter documented as of this encounter Goals Goal Patient Associated Recent Progress Patient-Stat Aut hor Goal Type Problems ed? Improve [facility] On track (03/20/2021 Yes Sheldon, 1:41 PM NAUTICAL INSTRUMENT MECHANIC) CHRYSTAL Singh Improve [facility] On track (03/20/2021 Yes Sheldon, 1:41 PM NAUTICAL INSTRUMENT MECHANIC) CHRYSTAL Singh Note: "To get better and stronger." documented as of this encounter Procedures Comments Procedure Name Priority Date/Time Associated Diag nosis CT ABD/PEL EXTERNAL Routine 03/14/2021 IMAGING 12:05 AM NAUTICAL INSTRUMENT MECHANIC documented in this encounter Results * CT ABD/PEL EXTERNAL IMAGING (03/14/2021 12:05 AM NAUTICAL INSTRUMENT MECHANIC) Modality Anatomical Region Laterality Computed Radiography Specimen Narrative Scheduling, Sil[place] - 04/11/2021 2:13 PM NAUTICAL INSTRUMENT MECHANIC This order has been auto finalized and does not contain a result. documented in this encounter Visit Diagnoses Not on filedocumented in this encounter Additional Health Concerns Noted Time Assessment 03/14/2021 11:45 PM NAUTICAL INSTRUMENT MECHANIC A fall risk assessment has been complet ed for the patient 12/07/2020 3:18 PM CDT PHQ-2 Depression Total Score: 2 documented as of this encounter Care Teams Start Date End Date Homicide Squad Commanding Officer Relationship Specialty 05/15/20 Garfield Gray MD PCP - General [address] [place] [address] 06/13/20 Riley Hopson MD Consulting Cardiovascul [address] Physician ar Disease [address] [place] [address] 12/20/20 Gino Pandya, OPERATING SYSTEMS SPECIALIST-SCRAP IRON CUTTER Nurse Nurse 4000 [employer] Practitioner Practitioner [facility] , [place] [address] 01/19/21 Teri Brandon Continuum of Care Case Management documented as of this encounter
--- OUTSIDE RECORDS SUMMARY | 2021-04-14 19:01 | XMS REPORT | Encounter Summary ---
Author Author [facility] Organization [facility] Address Unknown Phone Unavailable Care Team Providers Care Retail Coverage Merchandiser Name Role Phone Self, Garfield OLVERA PCP Riley Hopson MD [phone] Gino Pandya APRN-COMMERCIAL SERVICE TECHNICIAN [phone] Teri Brandon [phone] Unavailable Encounter Details Care Team Description Date Type Department Shea Barnes Paroxysmal atrial fibrillation (HCC) 03/21/2021 Orders Only Cardiology: [facility] [address] [place] [address] 1, [address] [place] [address] Social History Date Tobacco Use Types Packs/Day Years Used Never Smoker Smokeless Tobacco: Never Used Comments Alcohol Use Standard Drinks/Week Not Currently 0 (1 standard drink = 0.6 o z pure alcohol) Sex Assigned at Date Recorded Female 06/01/2020 1:44 PM SERVICE DESK TECHNICIAN Date Recorded COVID-19 Exposure Response 03/14/2021 2:50 PM SERVICE DESK TECHNICIAN In the last month, have you [...] Date Type Specialty Carlos Longo MD 4000 [facility] JZB175 [place] [address] Giancarlo Meneses MD 4000 [facility] 2nd [place] [address] Clarissa Harmon Stephanie, RT(R)(),LRT 04/16/2021 Hospital Radiology Encounter documented as of this encounter Goals Goal Patient Associated Recent Progress Patient-Stat Aut hor Goal Type Problems ed? Improve [facility] On track (03/20/2021 Yes Sheldon, 1:41 PM SERVICE DESK TECHNICIAN) CHRYSTAL Singh Improve [facility] On track (03/20/2021 Yes [employer], 1:41 PM SERVICE DESK TECHNICIAN) CHRYSTAL Singh Note: "To get better and stronger." documented as of this encounter Procedures Comments Procedure Name Priority Date/Time Associated Diag nosis PROTIME INR (PT) Routine 02/27/2021 Paroxysmal at rial fibrillation (HCC) documented in this encounter Results * PROTIME INR (PT) (02/27/2021) INR 1.3 MAIN LAB Specimen Blood - Blood Narrative Performing Organization Address City/State/ZIP Code P shane Number MAIN LAB [address] [place] [address] documented in this encounter Visit Diagnoses Diagnosis Paroxysmal atrial fibrillation (HCC) Atrial fibrillation documented in this encounter Additional Health Concerns Noted Time Assessment 03/21/2021 8:51 AM SERVICE DESK TECHNICIAN A fall risk assessment has been complet ed for the patient 12/07/2020 3:18 PM CDT PHQ-2 Depression Total Score: 2 documented as of this encounter Care Teams Start Date End Date Retail Coverage Merchandiser Relationship Specialty 05/15/20 Garfield Gray MD PCP - General [address] [phone] 06/13/20 Riley Hopson MD Consulting Cardiovascul [address] Physician ar Disease [address] [place] [address] 12/20/20 Gino Pandya, DRAW BENCH OPERATOR HELPER-COMMERCIAL SERVICE TECHNICIAN Nurse Nurse [address] [address] 01/19/21 Teri Brandon Continuum of Care Case Management documented as of this encounter
--- OUTSIDE RECORDS SUMMARY | 2021-04-14 19:01 | XMS REPORT | Encounter Summary ---
Author Author [facility] Organization [facility] Address Unknown Phone Unavailable Care Team Providers Care Belt Molder Name Role Phone Self, Garfield OLVERA PCP Riley Hopson MD [phone] Gino Pandya HUMAN SERVICES SUPERVISOR-GRAPHIC DESIGN ASSISTANT [phone] Teri Brandon [phone] Unavailable Encounter Details Care Team Description Date Type Department 03/14/2021 Travel Social History Date Tobacco Use Types Packs/Day Years Used Never Smoker Smokeless Tobacco: Never Used Comments Alcohol Use Standard Drinks/Week Not Currently 0 (1 standard drink = 0.6 o z pure alcohol) Sex Assigned at Date Recorded Female 06/01/2020 1:44 PM BIOINFORMATICS PROGRAMMER Date Recorded COVID-19 Exposure Response 03/14/2021 2:50 PM BIOINFORMATICS PROGRAMMER In the last month, have you been [...] Specialty Carlos Longo MD 4000 [facility] [place] [address] Giancarlo Meneses MD 4000 [facility] 2nd [place] [address] Clarissa Harmon Stephanie, RT(R)(),LRT 04/16/2021 Hospital Radiology Encounter documented as of this encounter Goals Goal Patient Associated Recent Progress Patient-Stat Aut hor Goal Type Problems ed? Improve [facility] On track (03/20/2021 Yes Sheldon, 1:41 PM BIOINFORMATICS PROGRAMMER) CHRYSTAL Singh Improve [facility] On track (03/20/2021 Yes Sheldon, 1:41 PM BIOINFORMATICS PROGRAMMER) CHRYSTAL Singh Note: "To get better and stronger." documented as of this encounter Visit Diagnoses Not on filedocumented in this encounter Additional Health Concerns Noted Time Assessment 03/14/2021 11:45 PM BIOINFORMATICS PROGRAMMER A fall risk assessment has been complet ed for the patient 12/07/2020 3:18 PM CDT PHQ-2 Depression Total Score: 2 documented as of this encounter Care Teams Start Date End Date Belt Molder Relationship Specialty 05/15/20 Garfield Gray MD PCP - [address] [address] 06/13/20 Riley Hopson MD Consulting Cardiovascul [address] Physician ar Disease [address] [place], [place] [address] 12/20/20 Gino Pandya, HUMAN SERVICES SUPERVISOR-GRAPHIC DESIGN ASSISTANT Nurse Nurse 4000 [facility] Practitioner Practitioner [facility] , [place] [address] 01/19/21 Teri Brandon Continuum of Care Case Management documented as of this encounter
--- OUTSIDE RECORDS SUMMARY | 2021-04-14 19:01 | XMS REPORT | Encounter Summary ---
Author Author [facility] Organization [facility] Address Unknown Phone Unavailable Care Team Providers Care Wind Project Manager Name Role Phone Self, Garfiedl OLVERA PCP Riley Hopson MD [phone] Gino Pandya APRN-IMPROVEMENT COORDINATOR [phone] Teri Brandon [phone] Unavailable Reason for Visit * Reason Comments Anticoagulation INR 2.3 Encounter Details Care Team Description Date Type Department Helen Waggoner RN Anticoagulation (INR 2.3) 03/12/2021 Anticoagulation Cardiology: [facility] [address] [place] [address] 1, [address] [place] [address] Social History Date Tobacco Use Types Packs/Day Years Used Never Smoker Smokeless Tobacco: Never Used Comments Alcohol Use Standard Drinks/Week Not Currently 0 (1 standard drink = 0.6 o z pure alcohol) Sex Assigned at Date Recorded Female 06/01/2020 1:44 PM SIMPLEX PRINTER INSTALLER Date Recorded COVID-19 Exposure Response 03/08/2021 7:56 AM SIMPLEX PRINTER INSTALLER In the last month, have you been [...] Notes * Helen Waggoner RN - 03/12/2021 2:17 PM SIMPLEX PRINTER INSTALLER INR 2.3. Called and discussed plan to continue to take Warfarin 4 mg and recheck INR on AM, 03/15. Pt verbalized understanding. No questions or concerns at this time. LEX PRINTER INSTALLER documented in this encounter Plan of Treatment Care Team Description Date Type Specialty Carlos Longo MD 4000 [facility] N[address]762 [place], [place] [phone] Giancarlo Meneses MD 4000 [facility] 2nd [place] [address] Clarissa Harmon Stephanie, RT(R)(),LRT 04/16/2021 Hospital Radiology Encounter documented as of this encounter Goals Goal Patient Associated Recent Progress Patient-Stat Aut hor Goal Type Problems ed? Improve [facility] On track (03/20/2021 Yes Sheldon, 1:41 PM SIMPLEX PRINTER INSTALLER) CHRYSTAL Singh Improve [facility] On track (03/20/2021 Yes Sheldon, 1:41 PM SIMPLEX PRINTER INSTALLER) CHRYSTAL Singh Note: "To get better and stronger." documented as of this encounter Visit Diagnoses Not on filedocumented in this encounter Additional Health Concerns Noted Time Assessment 03/08/2021 8:00 AM SIMPLEX PRINTER INSTALLER A fall risk assessment has been complet ed for the patient 12/07/2020 3:18 PM CDT PHQ-2 Depression Total Score: 2 documented as of this encounter Care Teams Start Date End Date Wind Project Manager Relationship Specialty 05/15/20 Garfield Gray MD PCP - [address] [address] 06/13/20 Riley Hopson MD Consulting Cardiovascul [address] Physician ar Disease [address] [place] [address] 12/20/20 Gino Pandya, WAREHOUSE DIRECTOR-IMPROVEMENT COORDINATOR Nurse Nurse [address] [place] [address] 01/19/21 Teri Brandon Continuum of Care Case Management documented as of this encounter
--- OUTSIDE RECORDS SUMMARY | 2021-04-14 19:01 | XMS REPORT | Encounter Summary ---
Author Author [facility] Organization [facility] Address Unknown Phone Unavailable Care Team Providers Care Human Resource Analyst Name Role Phone Self, Garfield OLVERA PCP Riley Hopson MD [phone] Gino Pandya MARKETING OPERATIONS ANALYST-MACHINE JOINER CEMENTER [phone] Teri Brandon [phone] Unavailable Reason for Visit * Reason Onset Date Comments Scheduling 03/13/2021 Encounter Details Care Team Description Date Type Department Gino Pandya, MARKETING OPERATIONS ANALYST-MACHINE JOINER CEMENTER 4000 [facility] [id number] [place], [place] [phone] Scheduling 03/13/2021 Telephone Cardiology: [facility] 4000 [facility] 1, [address] [place] [address] Social History Date Tobacco Use Types Packs/Day Years Used Never Smoker Smokeless Tobacco: Never Used Comments Alcohol Use Standard Drinks/Week Not Currently 0 (1 standard drink = 0.6 o z pure alcohol) Sex Assigned at Date Recorded Female 06/01/2020 1:44 PM COMMUNITY HEALTH ADVISOR Date Recorded COVID-19 Exposure Response 03/08/2021 7:56 AM COMMUNITY HEALTH ADVISOR In the last month, have you [...] - Ruchi Montez - 03/13/2021 1:21 PM COMMUNITY HEALTH ADVISOR ----- Message from HOSSEIN Chow sent at 03/13/2021 12:41 PM COMMUNITY HEALTH ADVISOR ---- - Regarding: offer telehealth visit Hi Dr. Qing Hopper would like me to see this patient in follow-up in review of goals of c are. Can you reach out and see if she would like to do this? (Looks like some pr ior appointments have been scheduled with me, but cancelled. Thank you! Gino UNITY HEALTH ADVISOR documented in this encounter Plan of Treatment Care Team Description Date Type Specialty Carlos Longo MD 4000 [facility] THE831 [place] [address] Giancarlo Meneses MD 4000 [facility] 2nd [place] [address] Clarissa Harmon Stephanie, RT(R)(),LRT 04/16/2021 Hospital Radiology Encounter documented as of this encounter Goals Goal Patient Associated Recent Progress Patient-Stat Aut hor Goal Type Problems ed? Improve [facility] On track (03/20/2021 Yes Sheldon, 1:41 PM COMMUNITY HEALTH ADVISOR) CHRYSTAL Singh [facility] On track (03/20/2021 Yes Sheldon, 1:41 PM COMMUNITY HEALTH ADVISOR) CHRYSTAL Singh Note: "To get better and stronger." documented as of this encounter Visit Diagnoses Not on filedocumented in this encounter Additional Health Concerns Noted Time Assessment 03/08/2021 8:00 AM COMMUNITY HEALTH ADVISOR A fall risk assessment has been complet ed for the patient 12/07/2020 3:18 PM CDT PHQ-2 Depression Total Score: 2 documented as of this encounter Care Teams Start Date End Date Human Resource Analyst Relationship Specialty 05/15/20 Garfield Gray MD PCP - [address] [address] 06/13/20 Riley Hopson MD Consulting Cardiovascul [address] Physician ar Disease [address] [place] [address] 12/20/20 Gino Pandya, MARKETING OPERATIONS ANALYST-MACHINE JOINER CEMENTER Nurse Nurse [address] [place] [address] 01/19/21 Teri Brandon Continuum of Care Case Management documented as of this encounter
--- OUTSIDE RECORDS SUMMARY | 2021-04-14 19:01 | XMS REPORT | Encounter Summary ---
Author Author [facility] Organization [facility] Address Unknown Phone Unavailable Care Team Providers Care Cardiac Exercise Specialist Name Role Phone Self, Garfield OLVERA PCP Riley Hopson MD [phone] Gino Pandya COLLISION TECHNICIAN-CARTON AND CAN SUPPLY SUPERVISOR [phone] Teri Brandon [phone] Unavailable Encounter Details Care Team Description Date Type Department 03/08/2021 Travel Social History Date Tobacco Use Types Packs/Day Years Used Never Smoker Smokeless Tobacco: Never Used Comments Alcohol Use Standard Drinks/Week Not Currently 0 (1 standard drink = 0.6 o z pure alcohol) Sex Assigned at Date Recorded Female 06/01/2020 1:44 PM NOVELTY CANDY MAKER Date Recorded COVID-19 Exposure Response 03/08/2021 7:56 AM NOVELTY CANDY MAKER In the last month, have you [...] Date Type Specialty Carlos Longo MD 4000 [facility] [place] [address] Giancarlo Meneses MD 4000 [facility] [address] [place] [address] Clarissa Harmon Stephanie, RT(R)(),LRT 04/16/2021 Hospital Radiology Encounter documented as of this encounter Goals Goal Patient Associated Recent Progress Patient-Stat Aut hor Goal Type Problems ed? Improve [facility] On track (03/20/2021 Yes Sheldon, 1:41 PM NOVELTY CANDY MAKER) CHRYSTAL Singh [facility] On track (03/20/2021 Yes Sheldon, 1:41 PM NOVELTY CANDY MAKER) CHRYSTAL Singh Note: "To get better and stronger." documented as of this encounter Visit Diagnoses Not on filedocumented in this encounter Additional Health Concerns Noted Time Assessment 03/08/2021 8:00 AM NOVELTY CANDY MAKER A fall risk assessment has been complet ed for the patient 12/07/2020 3:18 PM CDT PHQ-2 Depression Total Score: 2 documented as of this encounter Care Teams Start Date End Date Cardiac Exercise Specialist Relationship Specialty 05/15/20 Garfield Gray MD PCP - [address] [address] 06/13/20 Riley Hopson MD Consulting Cardiovascul [address] Physician ar Disease [address] [place], [place] [address] 12/20/20 Gino Pandya, COLLISION TECHNICIAN-CARTON AND CAN SUPPLY SUPERVISOR Nurse Nurse 4000 [facility] Practitioner Practitioner [facility] , [place] [address] 01/19/21 Teri Brandon Continuum of Care Case Management documented as of this encounter
--- OUTSIDE RECORDS SUMMARY | 2021-04-14 19:02 | XMS REPORT | Encounter Summary ---
Author Author [facility] Organization [facility] Address Unknown Phone Unavailable Care Team Providers Care Professor Of Geology Name Role Phone Self, Garfield OVLERA PCP Riley Hopson MD [phone] Gino Pandya CYBER SECURITY INSTRUCTOR-SCRIPT COORDINATOR [phone] Teri Brandon [phone] Unavailable Reason for Referral * Radiology Services (Routine) - Authorized Diagnoses / Procedures Referred By Contact Referred To Conta ct Specialty Diagnoses Chronic heart failure with preserved ejection fraction (HCC) RVF (right ventricular failure) (HCC) Other cirrhosis of liver (HCC) Procedures IR PARACENTESIS THERAPEUTIC Carlos Longo MD [address] [address] [place] [place] [address] [place] [address] Radiology Referral ID Status Reason Start Date Expiration Visits Vi sits Date Requested Authorized [id number] Authorized 01/22/2021 01/22/2022 20 20 PILOT Reason for Visit * Radiology Services (Routine) - Authorized Diagnoses / Procedures Referred By Contact Referred To Conta ct Specialty Diagnoses Chronic heart failure with preserved ejection fraction (HCC) RVF (right ventricular failure) (HCC) Other cirrhosis of liver (HCC) Procedures IR PARACENTESIS THERAPEUTIC Carlos Longo MD [address] [place] [address] [address] [place] [address] Radiology Referral ID Status Reason Start Date Expiration Visits Vi sits Date Requested Authorized [id number] Authorized 01/22/2021 01/22/2022 20 20 Encounter Details Care Team Description [place] [address] [place] [id number] Willow Sue, RN Jeanette Kingston, RT(R)(),LRT Chronic heart failure with preserved eje ction fraction (HCC) 02/19/2021 Hospital Interventional Radi ology: Encounter [facility] [address] [place] [address] Social History Date Tobacco Use Types Packs/Day Years Used Never Smoker Smokeless Tobacco: Never Used Comments Alcohol Use Standard Drinks/Week Not Currently 0 (1 standard drink = 0.6 o z pure alcohol) Sex Assigned at Date Recorded Female 06/01/2020 1:44 PM SHIP PILOT Date Recorded COVID-19 Exposure Response 02/19/2021 7:52 AM SHIP PILOT In the last month, have you been in contact with No / Unsure someone who was confirmed or suspected to have Coronavirus / COVID-19? documented as of this encounter Last Filed Vital Signs Reading Time Taken Comments Vital Sign 113/56 02/19/2021 10:30 AM SHIP PILOT Blood Pressure 124 02/19/2021 10:30 AM SHIP PILOT Pulse 36.5 C (97.7 F) 02/19/2021 8:15 AM SHIP PILOT Temperature - - Respiratory Rate 96% 02/19/2021 10:15 AM SHIP PILOT Oxygen Saturation - - Inhaled Oxygen Concentration 61.6 kg (135 lb 12.8 oz) 02/19/2021 8:15 AM SHIP PILOT Weight 157.5 cm (5' 2") 02/19/2021 8:15 AM SHIP PILOT Height 24.84 02/19/2021 8:15 AM SHIP PILOT Body Mass Index documented in this encounter [...] 10 mg tablet tablet by mouth daily. 01/11/2021 02/21/2021 spironolactone Take three 274 tablet 3 (ALDACTONE) 25 mg tablet tablets by mouth daily. Take with food. 12/30/2020 03/22/2021 warfarin (COUMADIN) 1 mg Take two 120 tablet 0 tablet tablets by mouth daily. documented as of this encounter Discharge Disposition Code Departure Means Destination Disposition Car Home or Self Care documented in this encounter Progress Notes * Claudia Crenshaw, CHRYSTAL - 02/19/2021 10:47 AM SHIP PILOT Pt asymptomatic with Afib. Rates down to 120-125. Call placed to Dr Garry fuentes e and message sent to Dr Longo [...] elevated hear t rates. Dr Nelson aware. PILOT * Willow Sue, CHRYSTAL - 02/19/2021 9:19 AM SHIP PILOT Patient's heart rate increased to 130s from previous 80s once patient was placed in procedure room. Patient was placed on the heart monitor. Patient in A-fib without any symptoms during heart rate change. Patient denying SOA, dizziness, heart racing. Patient's medications reviewed with patient and yudelka bueno verbalized she follows with Dr. Longo for her heart management and is usua lly is A-fib. PILOT documented in this encounter H&P Notes * Scout Nelson MD - 02/19/2021 7:58 AM SHIP PILOT Pre Procedure History and Physical/Sedation Plan Procedure [...] Performed by Bao Hernández MD at [facility] ENDO COLONOSCOPY DIAGNOSTIC WITH SPECIMEN COLLECTION BY BRUSHING/ WASHING - FLEXI BLE N/A 06/06/2020 Performed by Bao Hernández MD at [facility] ENDO ANGIOGRAPHY CORONARY ARTERY WITH RIGHT AND LEFT HEART CATHETERIZATION N/A Performed by Higinio Clarke MD at [facility] ENGRAVER PANTOGRAPH POSSIBLE PERCUTANEOUS CORONARY STENT PLACEMENT WITH ANGIOPLASTY N/A 1 Performed by Higinio Clarke MD at [facility] ENGRAVER PANTOGRAPH ESOPHAGOGASTRODUODENOSCOPY WITH SPECIMEN COLLECTION BY BRUSHING/ WASHING [...] N/A Performed by Bao Hernández MD at [facility] ENDO Medications Prior to Admission [...] performed on 02/12/21. Scout Nelson MD Pager [phone] PILOT documented in this encounter Procedure Notes * Scout Nelson MD - 02/19/2021 9:18 AM SHIP PILOT Immediate Post Procedure Note Date: 02/19/2021 Attending Physician: Scout Nelson MD Procedure(s): paracentesis Indications: ascites Findings: Cloudy fluid Anesthesia: Local Sedation/Medication Plan: Lidocaine Time out performed: Consent obtained, correct patient verified, correct procedur e verified, correct site verified, patient marked as necessary. Estimated Blood Loss: None/Negligible Specimen(s) Removed/Disposition: Yes, sent to pathology Complications: None Comments: Tolerated well Scout Nelson MD PILOT documented in this encounter Miscellaneous Notes * Patient Instructions - Claudia Crenshaw RN - 02/19/2021 8:17 AM SHIP PILOT Images from the original note were not [...] to the procedu re performed at the [facility] Location, call [phone] Friday-Friday from 7 -5p. After-hours and weekends, please call [phone] and ask for the [facility] Physical Science Technician on-call. You or your caregiver should call [phone] for any severe symptoms such as excessive bleeding, severe dizziness, trouble breathing or loss of consciousness. PILOT documented in this encounter Plan of Treatment Care Team Description Date Type Specialty Carlos Longo MD 4000 [facility] [address] [place], [place] [id number] Giancarlo Meneses MD 4000 [facility] [address] [place], [place] [phone] Clarissa Harmon Stephanie, RT(Jojo)(),LRT 04/16/2021 Hospital Radiology Encounter documented as of this encounter Goals Goal Patient Associated Recent Progress Patient-Stat Aut hor Goal Type Problems ed? Improve [facility] On track (03/20/2021 Yes Sheldon, 1:41 PM SHIP PILOT) CHRYSTAL Singh [facility] On track (03/20/2021 Yes Sheldon, 1:41 PM SHIP PILOT) CHRYSTAL Singh Note: "To get better and stronger." documented as of this encounter Procedures Comments Procedure Name Priority Date/Time Associated Diag nosis IR PARACENTESIS Routine 02/19/2021 Chronic heart failure THERAPEUTIC 9:50 AM SHIP PILOT with preserved ejec tion fraction (HCC) RVF (right ventricular failure) (HCC) Other cirrhosis of liver (HCC) HC PT(INR) Routine 02/19/2021 Paroxysmal atri al 8:19 AM SHIP PILOT fibrillation (HCC) documented in this encounter Results * IR PARACENTESIS THERAPEUTIC (02/19/2021 9:50 AM SHIP PILOT) Modality Anatomical Region Laterality Ultrasound Specimen Impressions [facility] RAD RESULTS - 02/19/2021 10:05 AM SHIP PILOT 1. Successful ultrasound guided parace ntesis. Finalized by Scout Nelson M.D. on 02/19/2021 10:05 AM. Dictated by Scout Nelson M.D. on 02/19/2021 10:05 AM. Narrative [facility] RAD RESULTS - 02/19/2021 10:05 AM SHIP PILOT Ultrasound-guided paracentesis CLINICAL INDICATION: Ascites MEDICATIONS: I was personally responsible for the administration of moderate sedation services during the procedure performed and I confirm requirements described in CPT section on moderate sedation were followed, including the use of an independent trained observer who had no other duties during the procedure. See nursing log for complete details; the drugs utilized were: subcutaneous Lidocaine 2% PRE PLANNING ADVISOR: Scout Nelson M.D. TECHNIQUE: Transverse real time images were obtained through the abdomen. The risks and benefits of this procedure were discussed and informed written consent was obtained prior to performing the procedure. The abdomen was then prepped and draped in usual sterile fashion. Limited ultrasound of the abdomen was performed. Under ultrasound guidance, a 5 Bermudian centesis needle was advanced into the peritoneal [...] the drugs utilized were: subcutaneous Lidocaine 2% PRE PLANNING ADVISOR: Scout Nelson M.D. TECHNIQUE: Transverse real time images were obtained through the abdomen. The risks and benefits of this procedure were discussed and informed written consent was obtained prior to performing the procedure. The abdomen was then prepped and draped in usual sterile fashion. Limited ultrasound of the abdomen was performed. Under ultrasound guidance, a 5 Bermudian centesis needle was advanced into the peritoneal [...] (ABNORMAL) PROTIME INR (PT) (02/19/2021 8:19 AM SHIP PILOT) INR 1.4 (H) 0.8 - 1.2 [facility] Specimen Blood Performing Organization Address City/State/ZIP Code P shane Number MAIN LAB [address] [place] [address] documented in this encounter Visit Diagnoses Diagnosis Chronic heart failure with preserved ej ection fraction (HCC) RVF (right ventricular failure) (HCC) Congestive heart failure, unspecified Other cirrhosis of liver (HCC) Paroxysmal atrial fibrillation (HCC) Atrial fibrillation documented in this encounter Administered Medications Action Date Dose Rate Site Medication Order MAR Action 02/19/2021 9:29 AM SHIP PILOT 37.5 g 200 mL/hr albumin 25% injection Given - New INTRA-PROCEDURE MED(CONT), Starting on Bag 02/19/21 at 0929, Until Mon 1 at 0929 documented in this encounter Active and Recently Administered Medications Times are shown in SHIP PILOT. 02/18/2021 02/19/2021 Medication Order 02/17/2021 0929 (Given - New Bag - Provider: Willow Sue RN) albumin 25% injection (COMPLETED) INTRA-PROCEDURE MED(CONT), Starting on 02/19/21 at 0929, Until Mon 1 at 0929 documented in this encounter Orders First Ordered Date Medications Ordered That Might Not Have Count Last Ordered Date Been Administered albumin 25% injection 1 02/19/2021 documented in this encounter Additional Health Concerns Noted Time Assessment 02/19/2021 8:13 AM SHIP PILOT A fall risk assessment has been complet ed for the patient 12/07/2020 3:18 PM CDT PHQ-2 Depression Total Score: 2 documented as of this encounter Care Teams Start Date End Date Professor Of Geology Relationship Specialty 05/15/20 Garfield Gray MD PCP - [address] [phone] 06/13/20 Riley Hopson MD Consulting Cardiovascul [address] Physician [address] Disease [address] [place] [address] 12/20/20 Gino Pandya, CYBER SECURITY INSTRUCTOR-SCRIPT COORDINATOR Nurse Nurse [address] [address] 01/19/21 Teri Brandon Continuum of Care Case Management documented as of this encounter
--- OUTSIDE RECORDS SUMMARY | 2021-04-14 19:02 | XMS REPORT | Encounter Summary ---
Author Author [facility] Organization [facility] Address Unknown Phone Unavailable Care Team Providers Care Criminal Judge Name Role Phone Self, Garfield OLVERA PCP Riley Hopson MD [phone] Gino Pandya APRN-PATIENT FINANCIAL SPECIALIST [phone] Teri Brandon [phone] Unavailable Reason for Referral * Consult, Test & Treat (Routine) - Authorized Diagnoses / Procedures Referred By [facility] Severe tricuspid regurgitation Carlos Longo MD 4000 [facility] [place] [address] [facility] 4000 [facility] [place] [address] Cardiothoracic Surgery Referral ID Status Reason Start Date Expiration Visits Vi sits Date Requested Authorized [id number] Authorized Specialty Services 02/22/2021 02/22/2022 1 1 Required Comments TR/Triluminate eval. ROL ANALYST Reason for Visit * Reason Comments Navigation Assessment TR/Triluminate evaluation Encounter Details Care Team Description Date Type Department Aarti Mars RN Navigation Assessment (TR/Triluminate ev aluation) 02/22/2021 Patient Profile Cardiology: [facility] 4000 [facility], [address] [place] [address] Social History Date Tobacco Use Types Packs/Day Years Used Never Smoker Smokeless Tobacco: Never Used Comments Alcohol Use Standard Drinks/Week Not Currently 0 (1 standard drink = 0.6 o z pure alcohol) Sex Assigned at Date Recorded Female 06/01/2020 1:44 PM CONTROL ANALYST Date Recorded COVID-19 Exposure Response 03/14/2021 2:50 PM CONTROL ANALYST In the last month, have you [...] as of this encounter Progress Notes * Aarti Mars RN - 02/22/2021 12:58 PM CONTROL ANALYST Cardiac Navigation Intake Assessment Document Patient Name: Zaria Paulson : 1960 Insurance: Payor: MEDICARE / Plan: MEDICARE PART A AND B / Product Type: Medic are / Appointment Info: Future Appointments Date Time Provider Department Center 03/02/2021 4:00 PM IR - IC SONO 1 IC1IR ICC Interv R 03/05/2021 9:00 AM IR - IC SONO 1 IC1IR ICC Interv R 03/12/2021 9:00 AM IR - IC SONO 1 IC1IR ICC Interv R 03/14/2021 2:30 PM Basilia Gaitan, SOFTWARE COMPUTER SPECIALIST-PATIENT FINANCIAL SPECIALIST MACHFC CVM Exam 03/14/2021 3:00 PM Gino Pandya, SOFTWARE COMPUTER SPECIALIST-PATIENT FINANCIAL SPECIALIST [id number] CVM Exam 03/19/2021 9:00 AM IR - IC SONO 1 IC1IR ICC Interv R 03/20/2021 11:30 AM [facility] SPECIAL PROC/RESEARCH MACKUECPV CVM Procedur 03/20/2021 2:00 PM Alxe Seo III, MD MATCSKUMCCL CTS 03/26/2021 1:30 PM Stiven Walker MD MACKUCL CVM Exam 03/26/2021 1:30 PM [facility] BOREMATIC MACHINE OPERATOR MACKU CVM Procedur 03/27/2021 10:00 AM [facility] JANIE/CARDIOVERSION MACKUECPV CVM Procedur 06/08/2021 9:15 AM SONOGRAPHY-MOB MOBSON MOB Radiolog 06/08/2021 10:30 AM Jeanette Garcia APRN-PATIENT FINANCIAL SPECIALIST CFT LTX HEP CFT [facility] JANIE (with Dr. Avilez) & RHC (with Dr. Saenz) scheduled 03/27. Diagnosis & Reason for Visit: TR/Triluminate evaluation Physician Info: Referring Physician(Brazer Crawler Torch): Dr. Carlos Longo PCP: Garfield Gray MD Location of Films: Echo - [facility] History of Present Illness: 05/22/20 PFTs Spirometry demonstrates a moderate to severe reduction in vital capa city. There is no significant response to bronchodilators. Residual volume is normal. Total lung capacity is moderately decreased. Transport factor (diffusion capacity) not corrected for hemoglobin is mildly dec reased. RV/TLC is normal. FEV1: 1.49 (60%) DLCO: 14.27 (66%) 06/08/20 R/LHC Moderately elevated pulmonary arterial pressures. Significantly elevated pulmonary capillary wedge pressures. No evidence of any significant coronary artery disease. 11/30/20 Echo Normal left ventricular cavity size with moderate concentric hypertr ophy Normal ejection fraction estimated at 55% Severely dilated right ventricle with reduced function Severe biatrial dilatation Markedly elevated central venous pressure Moderate mitral annular calcification with mild mitral regurgitation Severe tricuspid regurgitation Mechanical aortic valve with a mean gradient of 11 mmHg and peak velocity of 2.5 m/s No pericardial effusion. Left pleural effusion. Estimated peak systolic PA pressure 76 mmHg. 02/20/[address] Shannan Longo for TR/Triluminate eval. Medical history(Pertinent to valve workup) : CHF, TR, h/o AVR x 3. 2010 - mecha nical AVR (on warfarin), history of endocarditis, NICM, A-fib, anemia, cirrhosis (etiology secondary to chemo for non-Hodgkins lymphoma), encephalopathy, history of GI bleeding, history of non-hodgkins lymphoma, CKD, and recently receiving weekly paracentesis. COVID Vaccine ([employer]): 1st dose: (01/15/21); 2nd dose: (02/05/21) - Per [place] [facility] Surgery/Procedure history (Pertinent to valve workup) : History of AVR x 3 (1975 , 1997, and 2010 w/ mechanical AVR). Echo, PFTs, & R/LHC (results above) Dental health: Goes to the dentist routinely: No Last dental check up: "a few years ago" Educated to the need for dental clearance prior to scheduling potential valve blackwell rgery. NEEDS Assessment: Social Work/Financial: No need identified Physical: Uses a walker; occasionally a wheelchair Communication: No needs identified Reviewed records with Allegra Lozada APRN & Garrett Maza RN Plan: Office visit, repeat echo, JANIE and RHC (w/ Lovenox bridge per Allegra) Creatinine Clearance: 51.578 (weight: 61.6 kg; creatinine: 1.14 - 01/23/21) Comments: 02/22/2021 3:16 PM - Spoke with patient. Updated on current plan. Detkey rmined the best date for an appointment. Educated to all appointment information . Appointment letters and JANIE/RHC instructions mailed to her home. 03/01/2021 12:30 PM - Discovered patient's 03/06 echo appointment had been cancel led through [employer]. Connected with patient over the phone to check in. She states she must have cancelled accidentally as she intended on keeping her 03/06 valve clinic appts. Echo appt now not available 03/06. Rescheduled patient's ec ho and OV with Dr. Seo to 03/20. During our conversation she was a bit confused about all of her upcoming appts, compared with our previous conversation one we ek ago. Talked through them in detail with her. She verbalizes understanding. Goldy florez mentioned missing her paracentesis appointment this past Friday. She expre sses concern for weight gain. She has been in contact with Dr. Carlos Longo's [facility] team today. Advised patient per HF nursing mychart messages today, she need s to call IR to see if they can work her in for a paracentesis today/tomorrow. Bassem tsokes states she has not yet called IR. Provided her with the direct phone numb er. Advised patient if IR is not able to schedule her tomorrow, she should call Dr. Longo's nursing team immediately. Provided her with the heart failure nursin g triage phone number. All questions answered, she has none further at this time . Provided her with the direct valve clinic nurse navigation phone number to sammi coello as needed. 03/20 appt letter mailed to patient's home today. Message sent to Yvonne Mata RN and Susan Palomino RN on the heart failure team with this informati on. ROL ANALYST documented in this encounter Plan of Treatment Care Team Description Date Type Specialty Cralos Longo MD 4000 [facility] [place], [place] [id number] Giancarlo Meneses MD 4000 [facility] 2nd [place] [address] Clarissa Harmon Stephanie, RT(R)(),LRT 04/16/2021 [facility] Radiology Encounter Order Schedule Name Type Priority Associated Diag noses Ordered: 02/22/2021 AMB REFERRAL TO Outpatient Routine Severe tricusp id CARDIOTHORACIC SURGEON Referral regurgitation documented as of this encounter Goals Goal Patient Associated Recent Progress Patient-Stat Aut hor Goal Type Problems ed? Improve [facility] On track (03/20/2021 Yes Sheldon, 1:41 PM CONTROL ANALYST) CHRYSTAL Singh [facility] On track (03/20/2021 Yes Sheldon, 1:41 PM CONTROL ANALYST) CHRYSTAL Singh Note: "To get better and stronger." documented as of this encounter Visit Diagnoses Diagnosis Severe tricuspid regurgitation - Primar y Diseases of tricuspid valve documented in this encounter Additional Health Concerns Noted Time Assessment 02/19/2021 8:13 AM CONTROL ANALYST A fall risk assessment has been complet ed for the patient 12/07/2020 3:18 PM CDT PHQ-2 Depression Total Score: 2 documented as of this encounter Care Teams Start Date End Date Criminal Judge Relationship Specialty 05/15/20 Garfield Gray MD PCP - [address] [id number] 06/13/20 Riley Hopson MD Consulting Cardiovascul [address] Physician [address] Disease [address] [place] [address] 12/20/20 Gino Pandya, SOFTWARE COMPUTER SPECIALIST-PATIENT FINANCIAL SPECIALIST Nurse Nurse [address] [place] [phone] 01/19/21 Teri Brandon Continuum of Care Case Management documented as of this encounter
--- OUTSIDE RECORDS SUMMARY | 2021-04-14 19:02 | XMS REPORT | Encounter Summary ---
Author Author [facility] Organization [facility] Address Unknown Phone Unavailable Care Team Providers Care Lot Worker Name Role Phone Self, Garfield OLVERA PCP Riley Hopson MD [phone] Gino Pandya APRN-RAILROAD SHOP INSPECTOR [phone] Teri Brandon [phone] Unavailable Reason for Referral * Consult, Test & Treat (Routine) - Authorized Diagnoses / Procedures Referred By Contact [facility] Specialty Diagnoses Severe tricuspid regurgitation Carlos Longo MD 4000 [facility] [place] [address] [facility] 4000 [facility], [address] [place] [address] Cardiology Referral ID Status Reason Start Date Expiration Visits Vi sits Date Requested Authorized [id number] Authorized Specialty Services 02/19/2021 02/19/2022 1 1 Required Comments Valve Clinic Referral for Tricuspid Valve Clipping Referral Details: New to Specialty - consult, test, treat Priority: Normal (first available) AL PATHOLOGIST Reason for Visit * Reason Comments Heart Failure 6 month follow up Follow Up Encounter Details Care Team Description Date Type Department Carlos Longo MD 4000 [facility] [place] [address] Heart Failure (6 month follow up); Babatunde edward Up 02/19/2021 Office Visit Cardiology: [facility] [address], [address] [place] [address] Social History Date Tobacco Use Types Packs/Day Years Used Never Smoker Smokeless Tobacco: Never Used Comments Alcohol Use Standard Drinks/Week Not Currently 0 (1 standard drink = 0.6 o z pure alcohol) Sex Assigned at Date Recorded Female 06/01/2020 1:44 PM ANIMAL PATHOLOGIST Date Recorded COVID-19 Exposure Response 02/19/2021 7:52 AM ANIMAL PATHOLOGIST In the last month, have you been [...] Carlos Longo MD - 02/19/2021 3:30 PM ANIMAL PATHOLOGIST Date of Service: 02/19/2021 Obtained patient's verbal consent to treat them and their agreement to [facility] policy and NPP via this telehealth visit during the Coronavirus [facility] Emergency. This video home visit was conducted via communication between the patient and ph ysician/provider due to COVID-19. We have found that certain health care needs can be provided without an in-person visit.. This service lets us provide the ca re patients' need. If a prescription is necessary we can send it directly to [facility] pharmacy. If testing is necessary this can be arranged. Zaria Paulson is a 61 y.o. female. HPI It is my pleasure to see Ms. Khurram Enciso, pleasant 60-year-old female who has be en referred here by Berna Madison. I saw her in Jul, 2020. She is a post hospit al discharge. She is accompanied by her in the [facility]. This is a very complex situation, she lives in [facility], She was first seen in pulmonary hypertension clinic by Dr. Kathi Rosales on 2020 as a referral to pulmonary hypertension comprehensive care center at [facility], she was told by her railroad car painter that she has pulmonary hypertension on right [...] underwent chemotherapy. [facility]. She follows hematology regularly, [...] 11/04/2020 Hypoalbuminemia 10/23/2020 LEONORA (acute kidney injury) ([facility]) 10/21/2020 GI bleeding 10/20/2020 Cirrhosis (HCC) 09/07/2020 Non-ischemic cardiomyopathy (HCC) 09/07/2020 Paroxysmal atrial fibrillation (HCC) 09/07/2020 Stage 3b chronic kidney disease (HCC) 09/07/2020 Atrial tachycardia (HCC) 09/07/2020 Iron deficiency anemia 08/03/2020 High output congestive heart failure ([facility]) 08/01/2020 Hypotension, unspecified 07/10/2020 [...] tablet Take two tablets by mouth daily. AL PATHOLOGIST documented in this encounter Miscellaneous Notes * Patient Instructions - Kathryn Barbosa MA - 02/19/2021 3:30 PM ANIMAL PATHOLOGIST Thank you for coming to [facility] [...] [facility] Scheduling: In order to provide you the best care possible we ask that you follow up as leila edward: For NON-URGENT questions please contact us through your [employer] account. For all medication refills please contact your pharmacy or send a request ronald Hernandez. For all questions that may need to be addressed urgently please call the nursing triage line at [phone] Friday - Friday 8 AM-5 PM only. Please leave a deta iled message with your name, date of , and reason for your call. To schedule an appointment call [phone]. Please allow 10 business days for the [...] symptoms. Please call the heart failure nurses: [phone] Shortness of breath at rest or waking [...] and a cough with pink, frothy sputum AL PATHOLOGIST documented in this encounter Plan of Treatment Care Team Description Date Type Specialty Carlos Longo MD 4000 [facility] [id number] [place] [address] Giancarlo Meneses MD 4000 [facility] 2nd [place] [address] Clarissa Harmon Stephanie, RT(R)(),LRT 04/16/2021 [facility] Radiology Encounter Order Schedule Name Type Priority Associated Diag noses Ordered: 02/19/2021 AMB REFERRAL TO ADULT Outpatient Routine Severe t ricuspid CARDIOLOGY:INTERVENTIONAL Referral regurgitatio n CARDIOLOGY documented as of this encounter Goals Goal Patient Associated Recent Progress Patient-Stat Aut hor Goal Type Problems ed? Improve [facility] On track (03/20/2021 Yes Sheldon, 1:41 PM ANIMAL PATHOLOGIST) CHRYSTAL Singh [facility] On track (03/20/2021 Yes Sheldon, 1:41 PM ANIMAL PATHOLOGIST) CHRYSTAL Singh Note: "To get better and stronger." documented as of this encounter Visit Diagnoses Diagnosis Hx of mechanical aortic valve replaceme nt - Primary Heart valve replaced by other means Severe tricuspid regurgitation Diseases of tricuspid valve Chronic anticoagulation Long-term (current) use of anticoagulan ts Severe malnutrition (HCC) Nutritional marasmus Stage 3b chronic kidney disease (HCC) documented in this encounter Discontinued Medications Start [...] Concerns Noted Time Assessment 02/19/2021 8:13 AM ANIMAL PATHOLOGIST A fall risk assessment has been complet ed for the patient 12/07/2020 3:18 PM CDT PHQ-2 Depression Total Score: 2 documented as of this encounter Care Teams Start Date End Date Lot Worker Relationship Specialty 05/15/20 Garfield Gray MD PCP - [address] [address] 06/13/20 Riley Hopson MD Consulting Cardiovascul [address] Physician [address] Disease [address] [place] [address] 12/20/20 Gino Pandya, PROGRAM CONSULTANT-RAILROAD SHOP INSPECTOR Nurse Nurse [address] [place] [address] [phone] 01/19/21 Teri Brandon Continuum of Care Case Management documented as of this encounter
--- OUTSIDE RECORDS SUMMARY | 2021-04-14 19:02 | XMS REPORT | Encounter Summary ---
Author Author [facility] Organization [facility] Address Unknown Phone Unavailable Care Team Providers Care Brief Writer Name Role Phone Self, Garfield OLVERA PCP Riley Hopson MD [phone] Gino Pandya LEAD MANUFACTURING ENGINEER-COMMUNITY THEATER ACTOR [phone] Teri Brandon [phone] Unavailable Encounter Details Care Team Description Date Type Department Aarti Mars RN Nonrheumatic tricuspid valve regurgitati on (Primary Dx); Encounter for screening laboratory testing for COVID-19 virus in asymptomatic patient 02/22/2021 Prep for Case Cardiology: [facility] 4000 [facility], [address] [place] [address] Social History Date Tobacco Use Types Packs/Day Years Used Never Smoker Smokeless Tobacco: Never Used Comments Alcohol Use Standard Drinks/Week Not Currently 0 (1 standard drink = 0.6 o z pure alcohol) Sex Assigned at Date Recorded Female 06/01/2020 1:44 PM ELEMENTARY READING SPECIALIST Date Recorded COVID-19 Exposure Response 02/19/2021 7:52 AM ELEMENTARY READING SPECIALIST In the last month, have you [...] Type Specialty Carlos Longo MD 4000 [facility] [id number] [place] [address] Giancarlo Meneses MD 4000 [facility] 2[address] [place] [address] Clarissa Harmon Stephanie, RT(R)(),LRT 04/16/2021 Hospital Radiology Encounter Order Schedule Name Type Priority Associated Diag noses Expected: 03/23/2021 (Approximate), Expi res: 02/22/2022 COVID-19 (SARS-COV-2) PCR Microbiology Routine Enco unter for screening laboratory testing for COVID-19 virus in asymptomatic patient documented as of this encounter Goals Goal Patient Associated Recent Progress Patient-Stat Aut hor Goal Type Problems ed? Improve [facility] On track (03/20/2021 Yes Sheldon, 1:41 PM ELEMENTARY READING SPECIALIST) CHRYSTAL Singh [facility] On track (03/20/2021 Yes Sheldon, 1:41 PM ELEMENTARY READING SPECIALIST) CHRYSTAL Singh Note: "To get better and stronger." documented as of this encounter Visit Diagnoses Diagnosis Nonrheumatic tricuspid valve regurgitat ion - Primary Tricuspid valve disorders, specified as nonrheumatic Encounter for screening laboratory test ing for COVID-19 virus in asymptomatic patient documented in this encounter Additional Health Concerns Noted Time Assessment 02/19/2021 8:13 AM ELEMENTARY READING SPECIALIST A fall risk assessment has been complet ed for the patient 12/07/2020 3:18 PM CDT PHQ-2 Depression Total Score: 2 documented as of this encounter Care Teams Start Date End Date Brief Writer Relationship Specialty 05/15/20 Garfield Gray MD PCP - [address] [place], [place] [address] 06/13/20 Riley Hopson MD Consulting Cardiovascul [address] [place] [address] Physician ar Disease [address] [place] [address] 12/20/20 Gino Pandya, LEAD MANUFACTURING ENGINEER-COMMUNITY THEATER ACTOR Nurse Nurse [address] [address] 01/19/21 Teri Brandon Continuum of Care Case Management documented as of this encounter
--- OUTSIDE RECORDS SUMMARY | 2021-04-14 19:02 | XMS REPORT | Encounter Summary ---
Author Author [facility] Organization [facility] Address Unknown Phone Unavailable Care Team Providers Care Kiln Setter Name Role Phone Self, Garfield OLVERA PCP Riley Hopson MD [phone] Gino Pandya TAKE AWAY MAN-TEST ENGINEER NUCLEAR EQUIPMENT [phone] Teri Brandon [phone] Unavailable Reason for Referral * Radiology Services (Routine) - Authorized Diagnoses / Procedures Referred By Contact Referred To Conta ct Specialty Diagnoses Chronic heart failure with preserved ejection fraction (HCC) RVF (right ventricular failure) (HCC) Other cirrhosis of liver (HCC) Procedures IR PARACENTESIS THERAPEUTIC Carlos Longo MD [address] [address] [place] [place] [address] [place] [address] Radiology Referral ID Status Reason Start Date Expiration Visits Vi sits Date Requested Authorized [id number] Authorized 01/22/2021 01/22/2022 20 20 ANY MINER BLASTING Reason for Visit * Radiology Services (Routine) - Authorized Diagnoses / Procedures Referred By Contact Referred To Conta ct Specialty Diagnoses Chronic heart failure with preserved ejection fraction (HCC) RVF (right ventricular failure) (HCC) Other cirrhosis of liver (HCC) Procedures IR PARACENTESIS THERAPEUTIC Carlos Longo MD [address] [place] [address] [place] [place] [address] [place] [address] Radiology Referral ID Status Reason Start Date Expiration Visits Vi sits Date Requested Authorized [id number] Authorized 01/22/2021 01/22/2022 20 20 Encounter Details Care Team Description Date Type Department Karsten Griffiths MD [facility] [address] [id number] Shruthi Davey, RT(R)(),LRT Claudia Crenshaw RN Chronic heart failure with preserved eje ction fraction (HCC) 03/02/2021 Hospital Interventional Radi ology: Encounter Maritza Oviedo [facility] [address] [place] [address] Social History Date Tobacco Use Types Packs/Day Years Used Never Smoker Smokeless Tobacco: Never Used Comments Alcohol Use Standard Drinks/Week Not Currently 0 (1 standard drink = 0.6 o z pure alcohol) Sex Assigned at Date Recorded Female 06/01/2020 1:44 PM COMPANY MINER BLASTING Date Recorded COVID-19 Exposure Response 03/02/2021 2:50 PM COMPANY MINER BLASTING In the last month, have you been in contact with No / Unsure someone who was confirmed or suspected to have Coronavirus / COVID-19? documented as of this encounter Last Filed Vital Signs Reading Time Taken Comments Vital Sign 110/71 03/02/2021 4:45 PM COMPANY MINER BLASTING Blood Pressure - - Pulse 36.8 C (98.2 F) 03/02/2021 3:12 PM COMPANY MINER BLASTING Temperature - - Respiratory Rate 96% 03/02/2021 4:45 PM COMPANY MINER BLASTING Oxygen Saturation - - Inhaled Oxygen Concentration 60.6 kg (133 lb 9.6 oz) 03/02/2021 3:12 PM COMPANY MINER BLASTING Weight 157.5 cm (5' 2") 03/02/2021 3:12 PM COMPANY MINER BLASTING Height 24.44 03/02/2021 3:12 PM COMPANY MINER BLASTING Body Mass Index documented in this encounter [...] Brigitte Hinojosa RN - 03/02/2021 4:00 PM COMPANY MINER BLASTING Interventional Radiology Outpatient Scheduling Checklist 1. Name of Procedure(s): Paracentesis 2. Date of Procedure: 03/02/2021 3. Arrival Time: 1500 4. Procedure Time: 1600 5. Correct Procedural Room Assignment: [facility] Room 6. Blood Thinners Triaged and instructed per protocol: Y/N/NA: NA Confirmed accurate instructions sent to patient: Y/N: NA 7. Procedure Order Verified: Y/N: Yes 9. Patient instructed to have a driver/merchandiser: Y/N/NA: Yes 10. Patient instructed on NPO [...] electronic procedure instructions: Y/N: Yes; my chart ANY MINER BLASTING documented in this encounter H&P Notes * Karsten Griffiths MD - 03/02/2021 4:00 PM COMPANY MINER BLASTING Pre Procedure History and Physical/Sedation Plan-OP Procedure Date: 03/02/2021 Planned Procedure(s): Para Indication: ascites Chief Complaint: above History of Present Illness: Zaria Paulson is a 61 y.o. female. Patient Active Problem List Diagnosis Date Noted Fall 2021 Acute kidney injury superimposed on CKD ([facility]) 01/02/2021 Severe malnutrition ([facility]) 12/27/2020 Severe sepsis ([facility]) 12/22/2020 Acute on chronic diastolic (congestive) heart failure ([facility]) 12/10/2020 RVF (right ventricular failure) ([facility]) 11/30/2020 Hyponatremia 11/30/2020 Acute on chronic heart failure ([facility]) 11/29/2020 Hematoma of left flank 11/15/2020 Hematoma of right flank 11/15/2020 Hematuria 11/15/2020 Nontraumatic rectus hematoma 11/04/2020 Hypoalbuminemia 10/23/2020 LEONORA (acute kidney injury) ([facility]) 10/21/2020 GI bleeding 10/20/2020 Cirrhosis ([facility]) 09/07/2020 Non-ischemic cardiomyopathy (HCC) 09/07/2020 Paroxysmal atrial fibrillation ([facility]) 09/07/2020 Stage 3b chronic kidney disease (HCC) 09/07/2020 Atrial tachycardia ([facility]) 09/07/2020 Iron deficiency anemia [...] 06/06/2020 Performed by Bao Hernández MD at [facility] COLONOSCOPY DIAGNOSTIC WITH SPECIMEN COLLECTION BY BRUSHING/ WASHING - FLEXI BLE N/A 06/06/2020 Performed by Bao Hernández MD at [facility] ANGIOGRAPHY CORONARY ARTERY WITH RIGHT AND LEFT HEART CATHETERIZATION N/A Performed by Higinio Clarke MD at [facility] LINE SERVER POSSIBLE PERCUTANEOUS CORONARY STENT PLACEMENT WITH ANGIOPLASTY N/A Performed by Higinio Clarke MD at [facility] [employer] LINE SERVER ESOPHAGOGASTRODUODENOSCOPY WITH SPECIMEN COLLECTION BY BRUSHING/ WASHING N/A 10/21/2020 Performed by Cosmo Gomez MD at [facility] SIGMOIDOSCOPY WITH CONTROL OF BLEEDING - FLEXIBLE N/A 10/21/2020 Performed by Cosmo Gomez MD at [facility] ENDO SIGMOIDOSCOPY WITH DIRECTED SUBMUCOSAL INJECTION - FLEXIBLE 10/21/2020 Performed by Cosmo Gomez MD at [facility] ENDO ESOPHAGOGASTRODUODENOSCOPY WITH CONTROL OF BLEEDING - FLEXIBLE N/A Performed by Bao Hernández MD at [facility] (Not in a hospital admission) No Known [...] No pertinent labs Karsten Griffiths MD Pager ANY MINER BLASTING documented in this encounter Procedure Notes * Karsten Griffiths MD - 03/02/2021 3:59 PM COMPANY MINER BLASTING Immediate Post Procedure Note Date: 03/02/2021 Attending Physician: Sussy Griffiths Household Chores(s): Shruthi Procedure(s): para Indications: ascites Findings: above Anesthesia: Local 5 mL 1% lidocaine without epinephrine Sedation/Medication Plan: Other Time out performed: Consent obtained, correct patient verified, correct procedur e verified, correct site verified, patient marked as necessary. Estimated Blood Loss: None/Negligible Specimen(s) Removed/Disposition: None Complications: None Comments: Karsten Griffiths MD ANY MINER BLASTING documented in this encounter Miscellaneous Notes * Patient Education - Brigitte Hinojosa RN - 03/02/2021 4:00 PM COMPANY MINER BLASTING Dear Ms. Paulson, Thank you for choosing [facility] Interventional Rad iology for your procedure. Your appointment information is listed below: Appointment Date: 03/02/21 Appointment Time: 4:00 PM Arrival Time: 3:00 PM Location: [facility]: [address] [place] [address] Parking: available in the front of the building Check-in at Admissions Desk in Lobby INTERVENTIONAL [...] your care and activities after the procedure. ANY MINER BLASTING * Patient Instructions - Alondra Augustin RN - 03/02/2021 2:55 PM COMPANY MINER BLASTING Images from the original note were not [...] to the procedu re performed at the [place] Location, call [phone] Friday-Friday from 7 -5p. After-hours and weekends, please call [phone] and ask for the [facility] Pediatrician on-call. You or your caregiver should call [phone] for any severe symptoms such as excessive bleeding, severe dizziness, trouble breathing or loss of consciousness. ANY MINER BLASTING documented in this encounter Plan of Treatment Care Team Description Date Type Specialty Carlos Longo MD 4000 [facility] [place] [address] Giancarlo Meneses MD 4000 [facility] 2nd [place] [address] Clarissa Harmon Stephanie, RT(R)(),LRT 04/16/2021 Hospital Radiology Encounter documented as of this encounter Goals Goal Patient Associated Recent Progress Patient-Stat Aut hor Goal Type Problems ed? Improve [facility] On track (03/20/2021 Yes Hackett, 1:41 PM COMPANY MINER BLASTING) CHRYSTAL Singh Improve [facility] On track (03/20/2021 Yes Sheldon, 1:41 PM COMPANY MINER BLASTING) CHRYSTAL Singh Note: "To get better and stronger." documented as of this encounter Procedures Comments Procedure Name Priority Date/Time Associated Diag nosis IR PARACENTESIS Routine 03/02/2021 Chronic heart failure THERAPEUTIC 4:19 PM COMPANY MINER BLASTING with preserved ejec tion fraction (HCC) RVF (right ventricular failure) (HCC) Other cirrhosis of liver (HCC) HC CBC W/ AUTOMATED DIFF Routine 03/02/2021 Chron ic heart failure 3:24 PM COMPANY MINER BLASTING with preserved ejection fraction (HCC) Other cirrhosis of liver (HCC) HC COMPREHENSIVE Routine 03/02/2021 Chronic heart failure METABOLIC PANEL 3:24 PM COMPANY MINER BLASTING with preserved ejec tion fraction (HCC) Other cirrhosis of liver (HCC) documented in this encounter Results * IR PARACENTESIS THERAPEUTIC (03/02/2021 4:19 PM COMPANY MINER BLASTING) Modality Anatomical Region Laterality Ultrasound Specimen Impressions [facility] RESULTS - 03/02/2021 4:31 PM COMPANY MINER BLASTING IMPRESSION: Ultrasound guided paracentesis with removal of 6.2 liters of fluid. IKarsten M.D., the attending radiologist, was present for the procedure, personally reviewed the images, and formulated the interpretations and opinions expressed in this report. @TT Finalized by Karsten Griffiths M.D. on 03/02/2021 4:31 PM. Dictated by Karsten Griffiths M.D. on 03/02/2021 4:31 PM. Narrative [facility] RESULTS - 03/02/2021 4:31 PM COMPANY MINER BLASTING Exam: Ultrasound-guided paracentesis. History: Ascites. Technique: After obtaining informed written consent the patient was placed supine on the procedure table. Using ultrasound guidance, an appropriate insertion site in the right lower quadrant was marked. The patient was prepped and draped in the usual sterile fashion. Lidocaine was used for local anesthesia. A [id number]-Y-[id number] needle was inserted into the abdomen, with [...] Lidocaine was used for local anesthesia. A [id number]-[id number] needle was inserted into the abdomen, with [...] (ABNORMAL) CBC AND DIFF (03/02/2021 3:24 PM COMPANY MINER BLASTING) White Blood 4.6 4.5 - 11.0 K/UL [...] P shane Number [facility] [address] [place] [address] * (ABNORMAL) COMPREHENSIVE METABOLIC PANEL (03/02/2021 3:24 PM COMPANY MINER BLASTING) Sodium 130 (L) 137 - 147 MMOL/L [...] (L) >60 mL/min [facility] Comment: [place] The eGFR is not validated f or use in drug dosing adjustments. Continue to use estimated creatinine clearance per dosing reference text. Please contact the Clinical Pharmacist for questions. eGFR 56 (L) >60 mL/min [facility] [place] Comment: The eGFR is not validated for use in drug dosing adjustments. Continue to use estimated creatinine clearance per dosing reference text. Please contact the Clinical Pharmacist for questions. Specimen Blood (substance) Performing Organization Address City/State/ZIP Code P shane Number [facility] [address] [place] [address] documented in this encounter Visit Diagnoses Diagnosis Chronic heart failure with preserved ej ection fraction (HCC) RVF (right ventricular failure) (HCC) Congestive heart failure, unspecified Other cirrhosis of liver (HCC) documented in this encounter Administered Medications Action Date Dose Rate Site Medication Order MAR Action 03/02/2021 4:14 PM COMPANY MINER BLASTING 12.5 g albumin 25% injection Given - New INTRA-PROCEDURE MED(CONT), Starting on Bag Fri03/02/21 at 1606, Until Fri 1 at 1614 12.5 g Given - New Bag 03/02/2021 4:09 PM COMPANY MINER BLASTING 12.5 g Given - New Bag 03/02/2021 4:06 PM COMPANY MINER BLASTING documented in this encounter Active and Recently Administered Medications Times are shown in COMPANY MINER BLASTING. 03/01/2021 03/02/2021 Medication Order 02/28/2021 1606 (Given - New Bag - Provider: Claudia Crenshaw RN)1609 (Given - New Bag - Provider: Claudia Crenshaw RN)1614 (Given - New Bag - Provider: Claudia Crenshaw, RN) albumin 25% injection (COMPLETED) INTRA-PROCEDURE MED(CONT), Starting on 03/02/21 at 1606, Until Fri 1 at 1614 documented in this encounter Additional Health Concerns Noted Time Assessment 03/02/2021 3:11 PM COMPANY MINER BLASTING A fall risk assessment has been complet ed for the patient 12/07/2020 3:18 PM CDT PHQ-2 Depression Total Score: 2 documented as of this encounter Care Teams Start Date End Date Kiln Setter Relationship Specialty 05/15/20 Garfield Gray MD PCP - [address] [phone] 06/13/20 Riley Hopson MD Consulting Cardiovascul [address] Physician ar Disease [address] [place], [place] [address] 12/20/20 Gino Pandya, TAKE AWAY MAN-TEST ENGINEER NUCLEAR EQUIPMENT Nurse Nurse [address] [facility] , [place], [place] [phone] 01/19/21 Teri Brandon Continuum of Care Case Management documented as of this encounter
--- OUTSIDE RECORDS SUMMARY | 2021-04-14 19:02 | XMS REPORT | Encounter Summary ---
Author [facility] Organization [facility] Address Unknown Phone Unavailable Care Team Providers Care Break Off Worker Name Role Phone Self, Garfield OLVERA PCP Riley Hopson MD [phone] Gino Pandya APRN-MANAGER DIALYSIS [phone] Teri Brandon [phone] Unavailable Encounter Details Care Team Description Date Type Department Aarti Mars RN 02/22/2021 Prep for Case Cardiology: [facility] [address] [facility] [address] [place] [address] Social History Date Tobacco Use Types Packs/Day Years Used Never Smoker Smokeless Tobacco: Never Used Comments Alcohol Use Standard Drinks/Week Not Currently 0 (1 standard drink = 0.6 o z pure alcohol) Sex Assigned at Date Recorded Female 06/01/2020 1:44 PM 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 Improve [facility] On track (03/20/2021 Yes Sheldon, 1:41 PM LOAN INTERVIEWER) CHRYSTAL Singh [facility] On track (03/20/2021 Yes Sheldon, 1:41 PM LOAN INTERVIEWER) CHRYSTAL Singh Note: "To get better and stronger." documented as of this encounter Visit Diagnoses Not on filedocumented in this encounter Additional Health Concerns Noted Time Assessment 02/19/2021 8:13 AM LOAN INTERVIEWER A fall risk assessment has been complet ed for the patient 12/07/2020 3:18 PM CDT PHQ-2 Depression Total Score: 2 documented as of this encounter Care Teams Start Date End Date Break Off Worker Relationship Specialty 05/15/20 Garfield Gray MD PCP - [address] [place] [address] 06/13/20 Riley Hopson MD Consulting Cardiovascul [address] Physician ar Disease [address] [place] [id number] 12/20/20 Gino Pandya, STEAMBLASTER-MANAGER DIALYSIS Nurse Nurse [address] [facility] [id number] , [place] [address] 01/19/21 Teri Brandon Continuum of Care Case Management documented as of this encounter
--- OUTSIDE RECORDS SUMMARY | 2021-04-14 19:02 | XMS REPORT | Encounter Summary ---
Author Author [facility] Organization [facility] Address Unknown Phone Unavailable Care Team Providers Care Account Administrator Name Role Phone Self, Garfield OLVERA PCP Riley Hopson MD [phone] Gino Pandya FIRST AID OFFICER-GREEN TIRE INSPECTOR [phone] Teri Brandon [phone] Unavailable Encounter Details Care Team Description Date Type Department Aarti Mars RN Severe tricuspid regurgitation (Primary Dx) 02/22/2021 Pre-Admit Cardiology: [facility] [address] [facility] [address] [place] [address] Social History Date Tobacco Use Types Packs/Day Years Used Never Smoker Smokeless Tobacco: Never Used Comments Alcohol Use Standard Drinks/Week Not Currently 0 (1 standard drink = 0.6 o z pure alcohol) Sex Assigned at Date Recorded Female 06/01/2020 1:44 PM 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 Improve [facility] On track (03/20/2021 Yes Sheldon, 1:41 PM SPEECH AND LANGUAGE SPECIALIST) CHRYSTAL Singh Improve [facility] On track (03/20/2021 Yes Sheldon, 1:41 PM SPEECH AND LANGUAGE SPECIALIST) CHRYSTAL Singh Note: "To get better and stronger." documented as of this encounter Visit Diagnoses Diagnosis Severe tricuspid regurgitation - Primar y Diseases of tricuspid valve documented in this encounter Additional Health Concerns Noted Time Assessment 02/19/2021 8:13 AM SPEECH AND LANGUAGE SPECIALIST A fall risk assessment has been complet ed for the patient 12/07/2020 3:18 PM CDT PHQ-2 Depression Total Score: 2 documented as of this encounter Care Teams Start Date End Date Account Administrator Relationship Specialty 05/15/20 Garfield Gray MD PCP - General [address] [place] [address] 06/13/20 Riley Hopson MD Consulting Cardiovascul [address] Physician ar Disease [address] [place] [id number] 12/20/20 Gino Pandya APRN-GREEN TIRE INSPECTOR Nurse Nurse [address] [facility] [id number] , [place] [address] 01/19/21 Teri Brandon Continuum of Care Case Management documented as of this encounter
[2021-04-14 19:03] LABS: BASOPHILS % (AUTO) 0 % (0-10); EOSINOPHILS # (AUTO) 0.1 10^3/uL (0.0-0.3); EOSINOPHILS % (AUTO) 1 % (0-10); HEMATOCRIT 44 % (35-52); HEMOGLOBIN 13.4 g/dL (11.5-16.0); LYMPHOCYTES # (AUTO) 2.3 X 10^3 (1.0-4.0); LYMPHOCYTES % (AUTO) 18 % (12-44); MEAN CORPUSCULAR HEMOGLOBIN 31 pg (25-34); MEAN CORPUSCULAR HGB CONC 31 g/dL (32-36); MEAN CORPUSCULAR VOLUME 101 fL (80-99); MEAN PLATELET VOLUME 10.2 fL (9.0-12.2); MONOCYTES # (AUTO) 0.8 X 10^3 (0.0-1.0); MONOCYTES % (AUTO) 6 % (0-12); NEUTROPHILS # (AUTO) 9.8 X 10^3 (1.8-7.8); NEUTROPHILS % (AUTO) 74 % (42-75); PLATELET COUNT 289 10^3/uL (130-400); WHITE BLOOD COUNT 13.2 10^3/uL (4.3-11.0)
[2021-04-14 19:05] LABS: INR 1.6 (0.8-1.4); PROTHROMBIN TIME PATIENT 19.1 SEC (12.2-14.7)
--- NOTE | 2021-04-14 19:05 | ED Chest Pain ---
General Stated Complaint: STEMI Source: EMS Exam Limitations: clinical condition (KORY CONNELL MD) History of Present Illness Date Seen by Provider: Apr 14, 2021 Time Seen by Provider: 18:45 Initial Comments 61-year-old female with past medical history of Daniel cirrhosis coming in via EMS due to a STEMI. Call was initially placed because she was in respiratory distress with blue lips and becoming less responsive. EMS noted a STEMI on arrival and she was bradycardic and hypotensive. She was externally paced and thought to be too unstable to make it to the [facility] per STEMI prot ocol so she came to the stand-alone ER. Family was adamant that she did not go to [facility] and that she go to which is her typical hospital. (KORY CONNELL MD) Allergies and Home Medications Allergies Coded Allergies: No Known Drug Allergies (Unverified , 09/09/20) Patient Home Medication List Home Medication List Reviewed: Yes (KORY CONNELL MD) Baclofen (Baclofen) 10 Mg Tablet, 10 MG PO BID PRN for MUSCLE SPASMS Prescribed by: BHARGAV BLOCK on 03/11/21 1406 Cephalexin (Cephalexin) 500 Mg Tablet, 500 MG PO TID Prescribed by: WADE JOHNSON on 12/13/20 1658 Review of Systems Review of Systems Constitutional: No chills (KORY CONNELL MD) Past Pupihtv-Rucuor-Kpszwx Hx Patient Social History Tobacco Use?: No (KORY CONNELL MD) Immunizations Up To Date First/Initial COVID19 Vaccinat: 05/2020 Second COVID19 Vaccination Yariel: 05/2020 (KORY CONNELL MD) Seasonal Allergies Seasonal Allergies: No (KORY CONNELL MD) Past Medical History Surgery/Hospitalization HX: TITANIUM VALVE Surgeries: Yes (Lymphnode removal) Abdominal, Cardiac, Hysterectomy, Open Heart Surgery, Valve Replacement Respiratory: No Cardiac: Yes Coronary Artery Disease, Valvular Heart Disease Neurological: No 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 Genitourinary: No Gastrointestinal: Yes Liver Disease/Jaundice Musculoskeletal: No Endocrine: No HEENT: No Cancer: Yes (Non-Hodgkins lymphoma) Lymphoma Did You Recieve Any Treatments: Yes What Type of Treatment Did You: Chemotherapy Psychosocial: No Depression Integumentary: No Blood Disorders: Yes (Anemia) (KORY CONNELL MD) Physical Exam Vital Signs Vital Signs - First Documented 04/14/21 04/14/21 18:45 19:55 Temp 35.2 Pulse 80 Resp 12 B/P (MAP) 72/58 (63) Pulse Ox 85 O2 Delivery NIV CPAP FiO2 70 (MICHELLE MOREJON DO) Vital Signs Capillary Refill : (KORY CONNELL MD) Height, Weight, BMI Height: '" Weight: lbs. oz. kg; 21.00 BMI Method: General Appearance: Other HEENT: PERRL/EOMI, Normal ENT Inspection, Pharynx Normal Neck: Full Range of Motion Respiratory: Chest Non Tender (Obtunded), Normal Breath Sounds, Other (Decreased respiratory effort, on BiPAP) Cardiovascular: No Murmur, Bradycardia Gastrointestinal: Normal Bowel Sounds, Non Tender, Soft Extremity: Normal Range of Motion, Slow Capillary Refill Neurologic/Psychiatric: Other Skin: Normal Color Lymphatic: No Adenopathy (KORY CONNELL MD) Procedures/Interventions Reason for Intubation: unresponsive Date of ETT Placement: Apr 14, 2021 Time of ETT Placement: 19:00 Intubation Method: orotracheal Tube Size: 7.5 Breath Sounds after Intubation: bilateral-equal Intubation Complications: no complications Post Intubation Xray: Yes ETT in good position (KORY CONNELL MD) Progress/Results/Core Measures Results/Orders Lab Results Laboratory Tests Test 04/14/21 19:00 04/14/21 20:00 04/14/21 20:05 04/14/21 20:12 Range/Units White Blood Count 13.2 H 9.2 4.3-11.0 10^3/uL Red Blood Count 4.36 3.87 3.80-5.11 10^6/uL Hemoglobin 13.4 11.7 11.5-16.0 g/dL Hematocrit 44 37 35-52 % Mean Corpuscular Volume 101 H 95 80-99 fL Mean Corpuscular Hemoglobin 31 30 25-34 pg Mean Corpuscular Hemoglobin Concent 31 L 32 32-36 g/dL Red Cell Distribution Width 20.2 H 19.5 H 10.0-14.5 % Platelet Count 289 185 130-400 10^3/uL Mean Platelet Volume 10.2 10.4 9.0-12.2 fL Immature Granulocyte % (Auto) 1 1 % Neutrophils (%) (Auto) 74 89 H 42-75 % Lymphocytes (%) (Auto) 18 4 L 12-44 % Monocytes (%) (Auto) 6 5 0-12 % Eosinophils (%) (Auto) 1 1 0-10 % Basophils (%) (Auto) 0 0 0-10 % Neutrophils # (Auto) 9.8 H 8.2 H 1.8-7.8 10^3/uL Lymphocytes # (Auto) 2.3 0.3 L 1.0-4.0 10^3/uL Monocytes # (Auto) 0.8 0.5 0.0-1.0 10^3/uL Eosinophils # (Auto) 0.1 0.1 0.0-0.3 10^3/uL Basophils # (Auto) 0.0 0.0 0.0-0.1 10^3/uL Immature Granulocyte # (Auto) 0.2 H 0.1 0.0-0.1 10^3/uL Prothrombin Time 19.1 H 12.2-14.7 SEC INR Comment 1.6 H 0.8-1.4 Activated Partial Thromboplast Time 37 H 24-35 SEC Sodium Level 123 *L 128 L 135-145 MMOL/L Potassium Level 7.2 *H 6.1 H 3.6-5.0 MMOL/L Chloride Level 94 L 105 98-107 MMOL/L Carbon Dioxide Level 13 L 13 L 21-32 MMOL/L Anion Gap 16 H 10 5-14 MMOL/L Blood Urea Nitrogen 40 H 37 H 7-18 MG/DL Creatinine 1.65 H 1.65 H 0.60-1.30 MG/DL Estimat Glomerular Filtration Rate 36 36 BUN/Creatinine Ratio 24 22 Glucose Level 125 H 98 70-105 MG/DL Calcium Level 9.0 8.6 8.5-10.1 MG/DL Corrected Calcium 9.7 8.5-10.1 MG/DL Magnesium Level 2.6 H 1.6-2.4 MG/DL Total Bilirubin 1.1 H 0.1-1.0 MG/DL Aspartate Amino Transf (AST/SGOT) 106 H 5-34 U/L Alanine Aminotransferase (ALT/SGPT) 34 0-55 U/L Alkaline Phosphatase 241 H 40-136 U/L Troponin I < 0.30 0.142 H <0.028 NG/ML Pro-B-Type Natriuretic Peptide 5021.0 H <75.0 PG/ML Total Protein 5.9 L 6.4-8.2 GM/DL Albumin 3.1 L 3.2-4.5 GM/DL Percent Immature Platelet Fraction 3.7 0.0-7.6 % B-Type Natriuretic Peptide 2321.2 H <100.0 PG/ML Blood Gas Puncture Site LEFT RADIAL Blood Gas Patient Temperature 36.5 Arterial Blood pH 7.24 *L 7.37-7.43 Arterial Blood Partial Pressure CO2 41 35-45 MMHG Arterial Blood Partial Pressure O2 53 L 79-93 MMHG Arterial Blood HCO3 17 *L 23-27 MMOL/L Arterial Blood Total CO2 18.4 L 21.0-31.0 MMOL/L Arterial Blood Oxygen Saturation 74 L 94-100 % Arterial Blood Base Excess -9.2 L -2.5-2.5 MMOL/L Joshua Test YES-POS Blood Gas Ventilator Setting YES Blood Gas Inspired Oxygen 30% Test 04/14/21 20:38 Range/Units Urine Color YELLOW Urine Clarity CLEAR Urine pH 6.0 5-9 Urine Specific [place] 1.010 L 1.016-1.022 Urine Protein TRACE H NEGATIVE Urine Glucose (UA) 1+ H NEGATIVE Urine Ketones NEGATIVE NEGATIVE Urine Nitrite NEGATIVE NEGATIVE Urine Bilirubin NEGATIVE NEGATIVE Urine Urobilinogen 0.2 < = 1.0 MG/DL Urine Leukocyte Esterase NEGATIVE NEGATIVE Urine RBC (Auto) TRACE-I H NEGATIVE Urine RBC NONE /HPF Urine WBC RARE /HPF Urine Squamous Epithelial Cells NONE /HPF Urine Crystals NONE /LPF Urine Bacteria FEW H /HPF Urine Casts PRESENT /LPF Urine Hyaline Casts 0-2 H /LPF Urine Mucus NEGATIVE /LPF Urine Yeast LARGE H /HPF Urine Culture Indicated YES (MICHELLE MOREJON DO) My Orders Orders - MICHELLE MOREJON DO Ekg Tracing (04/14/21 19:54) Monitor-Rhythm Ecg Trace Only (04/14/21 19:54) Albuterol Pre-Mix Nebs (Rt) (Proventil (04/14/21 19:54) Rt Request For Service (04/14/21 19:54) Svn Small Volume Nebulizer (04/14/21 19:54) Arterial Blood Gas (04/14/21 19:54) Basic Metabolic Panel (1/22/22 19:54) Bnp [place] (04/14/21 19:54) Cbc With Automated Diff (04/14/21 19:54) Troponin I [place] (04/14/21 19:54) Insulin (Regular) Human (Novolin R (Per (04/14/21 20:00) D50w (Emergency) Syringe (Dextrose 50% 5 (04/14/21 20:00) Norepinephrine 8 Mg/250 Ml (Norepinephri (04/14/21 20:15) Norepinephrine 8 Mg/250 Ml (Norepinephri (04/14/21 20:03) Ct Head Wo-R/O Stroke (04/14/21 20:28) Lactic Acid Analyzer (04/14/21 20:29) Procalcitonin (Pct) (04/14/21 20:29) Ua Culture If Indicated (04/14/21 20:29) Blood Culture (04/14/21 20:29) Comprehensive Metabolic Panel (04/14/21 20:29) Fibrin Degradation Products (04/14/21 20:29) Hs C Reactive Protein (04/14/21 20:29) LDH (04/14/21 20:29) Covid 19 Inhouse Test (04/14/21 20:29) Influenza A And B By Pcr (04/14/21 20:29) Isolation Central Supply Req (04/14/21 20:29) Digoxin (04/14/21 20:33) Acetaminophen (04/14/21 20:45) Alcohol (04/14/21 20:45) Ammonia (04/14/21 20:45) Drug Screen Stat (Urine) (04/14/21 20:45) Thyroid Analyzer (04/14/21 20:45) Urine Culture (04/14/21 20:38) Ed Iv/Invasive Line Start (04/14/21 21:00) Ns Iv 1000 Ml (Sodium Chloride 0.9%) (04/14/21 21:00) Propofol Drip (Icu) (Diprivan Drip (Icu) (04/14/21 21:00) Triglycerides (04/14/21 21:00) Triglycerides (04/16/21 21:00) (MICHELLE MOREJON DO) Medications Given in ED Current Medications Medications Dose Ordered Sig/Simone Route Start Time Stop Time Status Last Admin Dose Admin Dextrose 50 ml ONCE ONCE IV 04/14/21 20:00 04/14/21 20:01 DC 04/14/21 20:13 50 ML Insulin Human Regular 10 unit ONCE ONCE IV 04/14/21 20:00 04/14/21 20:01 DC 04/14/21 20:13 10 UNIT (MICHELLE MOREJON DO) Vital Signs/I&O 04/14/21 04/14/21 04/14/21 04/14/21 18:45 19:18 19:55 20:40 Temp 35.2 Pulse 80 80 72 66 Resp 12 18 16 B/P (MAP) 72/58 (63) 114/68 (83) 55/21 Pulse Ox 85 97 100 O2 Delivery NIV CPAP Mechanical Ventilator FiO2 70 (MICHELLE MOREJON DO) Progress Progress Note : Progress Note 61-year-old female with above history coming in via EMS as a STEMI alert. On review of EMSs EKG she does have ST elevation in the inferior leads with reciprocal changes. STEMI alert was called. Family was adamant the patient go to , but after discussion with his sales program manager and [facility]'s car diologist, we will send her to the closest 1 which is [place]. Patient did require intubation because she was obtunded and not responding and was not protecting her airway while on BiPAP. Blood pressure was hypotensive with systolic in the 60s which improved after fluid bolus as well as external pacing since her heart rate was in the 40s. She did require some Versed and fentanyl IV for sedation after intubation. Called and discussed the case with Dr. Queen to will take the patient to the Nutrition Intern as a STEMI alert. As the patient was leaving, the lab called and said the potassium was elevated to 7.2 and not hemolyzed. I contacted EMS and told him to give calcium gluconate en route for potential hyperkalemic changes. I contacted Dr. Queen to discuss the new findings after the patient left. He says he will have the patient met in the emergency department instead of the [facility] so they can stabilize her potassium before he potentially takes her there. They will also get a repeat EKG to see if the changes go away when her potassium is lower. (KORY CONNELL MD) Departure Impression Primary Impression: STEMI (ST elevation myocardial infarction) Qualified Codes: I21.3 - ST elevation (STEMI) myocardial infarction of unspecified site Additional Impressions: Unresponsive Hyperkalemia Bradycardia Disposition: 30 STILL A PATIENT Condition: Critical Admissions Decision to Admit Reason: Admit from ER (General) Decision to Admit/Date: Apr 14, 2021 Time/Decision to Admit Time: 19:20 (KORY CONNELL MD) Transfer Transfer Facility: [facility] Method of Transfer: EMS (KORY CONNELL MD) Departure-Patient Inst. Referrals: DULCE MARIA PEREYRA MD (PCP/Family) Primary Care Physician KORY CONNELL MD Apr 14, 2021 19:05 MICHELLE MOREJON DO Apr 14, 2021 20:43
--- NOTE | 2021-04-14 19:13 | Diagnostic Imaging Report ---
INDICATION: Myocardial infarct. COMPARISON: 03/14/2021. FINDINGS: Sternal wires are midline. ET or trach tube tip mid thoracic trachea. OG catheter is in the upper stomach. The heart is enlarged but is decreased in size from the prior. There is mild vascular prominence but this also improved. IMPRESSION: Support apparatus in good alignment. Improvements in cardiomegaly and vascular congestion. No pneumothorax or significant pleural fluid apparent. No adverse development from prior. OG catheter in the upper stomach. Dictated by: Dictated on workstation # [id number]
[2021-04-14 19:15] LABS: ALBUMIN 3.1 GM/DL (3.2-4.5); BILIRUBIN,TOTAL 1.1 MG/DL (0.1-1.0); CREATININE SERUM 1.65 MG/DL (0.60-1.30); MAGNESIUM 2.6 MG/DL (1.6-2.4); POTASSIUM 7.2 MMOL/L (3.6-5.0); TOTAL PROTEIN 5.9 GM/DL (6.4-8.2)
[2021-04-14] MEDS ORDERED: CALCIUM GLUC. 10% 4.65 MEQ/10 ML VIAL ONE ×2 (19:15→19:16)
[2021-04-14] MEDS ORDERED: RT-ALBUTEROL SULF 2.5 MG/3 ML PRE-MIX VIAL INH STA (19:54)
[2021-04-14] MEDS ORDERED: DEXTROSE 50% 50 ML (IMS) SYR IV ONE ×2 (20:00→23:00)
[2021-04-14] MEDS ORDERED: inSUlin (REGULAR) HUMAN 1 UNIT/0.01 ML (CHARGE PER UNIT) IV ONE ×2 (20:00→23:00)
[2021-04-14] MEDS ORDERED: NOREPINEPHRINE 8 MG/250 ML 250 ML IV ONE (20:03)
[2021-04-14 20:04] LABS: BASOPHILS % (AUTO) 0 % (0-10); HEMATOCRIT 37 % (35-52); HEMOGLOBIN 11.7 g/dL (11.5-16.0); MEAN CORPUSCULAR HGB CONC 32 g/dL (32-36)
[2021-04-14 20:06] LABS: EOSINOPHILS # (AUTO) 0.1 10^3/uL (0.0-0.3); EOSINOPHILS % (AUTO) 1 % (0-10); LYMPHOCYTES # (AUTO) 0.3 10^3/uL (1.0-4.0); LYMPHOCYTES % (AUTO) 4 % (12-44); MEAN CORPUSCULAR HEMOGLOBIN 30 pg (25-34); MEAN CORPUSCULAR VOLUME 95 fL (80-99); MEAN PLATELET VOLUME 10.4 fL (9.0-12.2); MONOCYTES # (AUTO) 0.5 10^3/uL (0.0-1.0); MONOCYTES % (AUTO) 5 % (0-12); NEUTROPHILS # (AUTO) 8.2 10^3/uL (1.8-7.8); NEUTROPHILS % (AUTO) 89 % (42-75); PLATELET COUNT 185 10^3/uL (130-400); WHITE BLOOD COUNT 9.2 10^3/uL (4.3-11.0)
[2021-04-14 20:21] LABS: CALCIUM 8.6 MG/DL (8.5-10.1); CREATININE SERUM 1.65 MG/DL (0.60-1.30); POTASSIUM 6.1 MMOL/L (3.6-5.0)
[2021-04-14 20:22] LABS: ABG BASE EXCESS -9.2 MMOL/L (-2.5-2.5); ABG OXYGEN SATURATION 74 % (94-100); ABG PCO2 41 MMHG (35-45); ABG PO2 53 MMHG (79-93); ABG TCO2 18.4 MMOL/L (21.0-31.0)
[2021-04-14 20:23] LABS: ABG PH 7.24 (7.37-7.43)
[2021-04-14 20:24] LABS: ALLENS TEST YES-POS; INSPIRED O2 30%; PATIENT TEMP 36.5; VENTILATOR YES
--- NOTE | 2021-04-14 20:34 | Consultation-Cardiology ---
HPI-Cardiology Cardiology Consultation: Date of Consultation 04/14/2021 Date of Admission 04/14/2021 Attending Physician Admitting Physician Garfield Gray MD Consulting Physician DUTCH MORILLO JR, MD HPI: Time Seen by a Provider: 20:30 Chief Complaint: Reason for consultation: Possible inferior STEMI. I saw Zaria in the emergency room at [facility] in [place], [place] this evening. When I saw the patient, she was intubated and unresponsive. I initially received a call from the emergency room physician in [place], [place] reporting that this patient had arrived by ambulance in respiratory distress with severe bradycardia requiring intermittent external pacing. An electrocardiogram performed in the ambulance showed inferior ST elevation but this was in the presence of probable ventricular escape beats. A code STEMI was activated from the outside emergency room. The patient was then transferred ported by ground ambulance to our facility. In the outside emergency room the patient was found to have hyperkalemia with a potassium of 7. The ambulance crew was advised of the hyperkalemia and was instructed to give the patient calcium gluconate and albuterol nebulizer. The ambulance did not have insulin. Upon arrival to our emergency room, she remained intubated and unresponsive. She was in shock. Norepinephrine infusion was initiated. A stat electrocardiogram at that time showed possible atrial fibrillation with a right bundle branch block and no evidence of ST elevation or any significant ST depression. At that time, the code STEMI was canceled. Her only visits to our facility have been emergency room visits. Anytime she needed to be admitted to the hospital, it appears she was transferred to [facility]. I am not able to obtain any history from the patient due to her clinical status and no family is readily available. Certain portions of this document may have been dictated utilizing voice recognition technology. Inherent to this technology, typographical and grammatical errors may exist. As much as I am diligent to identify and correct these mistakes, some errors may remain in the document. Review of Systems-Cardiology Review of Systems Other comments Not obtainable due to clinical status DLH-Pmdvul-Fuzwls Hx Patient Social History Marrital Status: 2nd Hand Smoke Exposure: No Have you traveled recently?: No Pt feels they are or have been: No Past Medical History PMH As described under Assessment. Family Medical History Family Medical History: Not obtainable due to clinical status. Allergies and Home Medications Allergies Coded Allergies: No Known Drug Allergies (Unverified , 09/09/20) Patient Home Medication List Home Medication List Reviewed: Yes Baclofen (Baclofen) 10 Mg Tablet, 10 MG PO BID PRN for MUSCLE SPASMS Prescribed by: BHARGAV BLOCK on 03/11/21 1406 Cephalexin (Cephalexin) 500 Mg Tablet, 500 MG PO TID Prescribed by: WADE JOHNSON on 12/13/20 1658 Exam Vital Signs Vital Signs Date Time Temp Pulse Resp B/P (MAP) Pulse Ox O2 Delivery O2 Flow Rate FiO2 04/14/21 19:18 80 18 114/68 (83) 97 Mechanical Ventilator 04/14/21 18:45 35.2 Physical Exam General: Intubated and unresponsive. Well nourished and appears older than her stated age. Eye: Conjunctivae are clear. There are no xanthelasma. HENT: Normocephalic. Atraumatic. Carotid pulsations 2/2 without bruits. Neck: Jugular venous pressure does not appear elevated. No thyromegaly appreciated. Respiratory: Symmetrical expansion bilaterally. Coarse breath sounds due to the ventilator. Cardiovascular: Normal rate. Regular rhythm. 3/6 systolic ejection murmur. Metallic S2. No gallop. Point of maximal impulse is not appear displaced. Good pulses equal in all extremities. No edema. Gastrointestinal: Soft. Normal bowel sounds. Skin: Skin turgor is normal. There is no pallor. Musculoskeletal: No obvious deformities. Neurologic: Intubated and unresponsive. Psychiatric: Not obtainable due to clinical status. Labs Laboratory Tests Test 04/14/21 19:00 04/14/21 20:00 04/14/21 20:05 04/14/21 20:12 Range/Units White Blood Count 13.2 H 9.2 4.3-11.0 10^3/uL Red Blood Count 4.36 3.87 3.80-5.11 10^6/uL Hemoglobin 13.4 11.7 11.5-16.0 g/dL Hematocrit 44 37 35-52 % Mean Corpuscular Volume 101 H 95 80-99 fL Mean Corpuscular Hemoglobin 31 30 25-34 pg Mean Corpuscular Hemoglobin Concent 31 L 32 32-36 g/dL Red Cell Distribution Width 20.2 H 19.5 H 10.0-14.5 % Platelet Count 289 185 130-400 10^3/uL Mean Platelet Volume 10.2 10.4 9.0-12.2 fL Immature Granulocyte % (Auto) 1 1 % Neutrophils (%) (Auto) 74 89 H 42-75 % Lymphocytes (%) (Auto) 18 4 L 12-44 % Monocytes (%) (Auto) 6 5 0-12 % Eosinophils (%) (Auto) 1 1 0-10 % Basophils (%) (Auto) 0 0 0-10 % Neutrophils # (Auto) 9.8 H 8.2 H 1.8-7.8 10^3/uL Lymphocytes # (Auto) 2.3 0.3 L 1.0-4.0 10^3/uL Monocytes # (Auto) 0.8 0.5 0.0-1.0 10^3/uL Eosinophils # (Auto) 0.1 0.1 0.0-0.3 10^3/uL Basophils # (Auto) 0.0 0.0 0.0-0.1 10^3/uL Immature Granulocyte # (Auto) 0.2 H 0.1 0.0-0.1 10^3/uL Prothrombin Time 19.1 H 12.2-14.7 SEC INR Comment 1.6 H 0.8-1.4 Activated Partial Thromboplast Time 37 H 24-35 SEC Sodium Level 123 *L 128 L 135-145 MMOL/L Potassium Level 7.2 *H 6.1 H 3.6-5.0 MMOL/L Chloride Level 94 L 105 98-107 MMOL/L Carbon Dioxide Level 13 L 13 L 21-32 MMOL/L Anion Gap 16 H 10 5-14 MMOL/L Blood Urea Nitrogen 40 H 37 H 7-18 MG/DL Creatinine 1.65 H 1.65 H 0.60-1.30 MG/DL Estimat Glomerular Filtration Rate 36 36 BUN/Creatinine Ratio 24 22 Glucose Level 125 H 98 70-105 MG/DL Calcium Level 9.0 8.6 8.5-10.1 MG/DL Corrected Calcium 9.7 8.5-10.1 MG/DL Magnesium Level 2.6 H 1.6-2.4 MG/DL Total Bilirubin 1.1 H 0.1-1.0 MG/DL Aspartate Amino Transf (AST/SGOT) 106 H 5-34 U/L Alanine Aminotransferase (ALT/SGPT) 34 0-55 U/L Alkaline Phosphatase 241 H 40-136 U/L Troponin I < 0.30 0.142 H <0.028 NG/ML Pro-B-Type Natriuretic Peptide 5021.0 H <75.0 PG/ML Total Protein 5.9 L 6.4-8.2 GM/DL Albumin 3.1 L 3.2-4.5 GM/DL Percent Immature Platelet Fraction 3.7 0.0-7.6 % B-Type Natriuretic Peptide 2321.2 H <100.0 PG/ML Blood Gas Puncture Site LEFT RADIAL Blood Gas Patient Temperature 36.5 Arterial Blood pH 7.24 *L 7.37-7.43 Arterial Blood Partial Pressure CO2 41 35-45 MMHG Arterial Blood Partial Pressure O2 53 L 79-93 MMHG Arterial Blood HCO3 17 *L 23-27 MMOL/L Arterial Blood Total CO2 18.4 L 21.0-31.0 MMOL/L Arterial Blood Oxygen Saturation 74 L 94-100 % Arterial Blood Base Excess -9.2 L -2.5-2.5 MMOL/L Joshua Test YES-POS Blood Gas Ventilator Setting YES Blood Gas Inspired Oxygen 30% Test 04/14/21 20:38 Range/Units Urine Color YELLOW Urine Clarity CLEAR Urine pH 6.0 5-9 Urine Specific [place] 1.010 L 1.016-1.022 Urine Protein TRACE H NEGATIVE Urine Glucose (UA) 1+ H NEGATIVE Urine Ketones NEGATIVE NEGATIVE Urine Nitrite NEGATIVE NEGATIVE Urine Bilirubin NEGATIVE NEGATIVE Urine Urobilinogen 0.2 < = 1.0 MG/DL Urine Leukocyte Esterase NEGATIVE NEGATIVE Urine RBC (Auto) TRACE-I H NEGATIVE Urine RBC NONE /HPF Urine WBC RARE /HPF Urine Squamous Epithelial Cells NONE /HPF Urine Crystals NONE /LPF Urine Bacteria FEW H /HPF Urine Casts PRESENT /LPF Urine Hyaline Casts 0-2 H /LPF Urine Mucus NEGATIVE /LPF Urine Yeast LARGE H /HPF Urine Culture Indicated YES Radiology ECHOCARDIOGRAM (04/14/2021): 1. This is a stat bedside study performed in the emergency room. 2. Left ventricle: The cavity size is normal. There is severe concentric hypertrophy. Systolic function is hyperdynamic. The estimated ejection fraction is 70-75%. There is flattening of the interventricular septum consistent with right ventricular pressure and/or volume overload. The left ventricular diasto lic function was not completely evaluated on this limited study. 3. Right ventricle: The right ventricle is moderately dilated measuring 4 cm at the base. The right ventricular systolic function appears preserved. 4. Left atrium: The left atrium is severely dilated with a volume ranging from 97-111 mL. 5. Right atrium: The right atrium is severely dilated with an area of 33 cm. 6. Atrial septum: The interatrial septum is bowed to the left consistent with elevated right atrial pressure. 7. Aortic valve: There is a bileaflet mechanical prosthetic aortic valve that visually appears to be functioning normally and has acceptable gradients. 8. Tricuspid valve: There is severe tricuspid regurgitation. 9. Inferior vena cava: The vessel is dilated. The respirophasic diameter changes are blunted (less than 50%). These findings are consistent with markedly elevated right atrial pressure (15 mmHg). 10. Pulmonary arteries: The estimated pulmonary artery systolic pressure is 92 mmHg assuming a right atrial pressure of 15 mmHg. 11. Pericardium, extracardiac: Ascites is noted. 12. No previous study is available for comparison. ECG Impression ECG Comment Possible underlying atrial fibrillation with right bundle branch block and no evidence of ST elevation or any significant ST depression. Diagnosis/Problems Diagnosis/Problems (1) Shock Assessment & Plan: Exact etiology unclear. She has multiple metabolic derangements. However, her ejection fraction is normal and she has a mechanical aortic valve prosthesis that appears to be functioning normally. I suspect there is some other etiology of shock other than cardiogenic shock. (2) Complete heart block Assessment & Plan: She appears as though she may have an ectopic atrial rhythm versus underlying atrial fibrillation and then developed complete heart block that required temporary external pacing. This may have been related to the severe hyperkalemia that has now started to improve with treatment. She is no longer in heart block and is no longer requiring external pacing. (3) History of aortic valve replacement with metallic valve Assessment & Plan: Stat bedside echocardiogram was performed in the emergency room that shows what appears to be a [place] aortic valve that appears to be functioning normally without significant stenosis or regurgitation. Her external medication list shows that she may be taking warfarin at home and her INR was 1.9. (4) Pulmonary hypertension Assessment & Plan: Her echocardiogram shows severe pulmonary hypertension that is of unknown etiology. I would suspect a pulmonary embolism would be unlikely since she has been taking warfarin. On the other hand, she has had previous visits to [facility] emergency room and her INR levels have been intermittently subtherapeutic. (5) Acute on chronic respiratory failure with hypoxia and hypercapnia Assessment & Plan: Exact etiology unclear. The emergency room physician is running additional testing to help elucidate the cause of her acute respiratory failure. This will be managed by the hospitalist and reinforced steel placing supervisor. (6) Acute kidney injury superimposed on chronic kidney disease Assessment & Plan: This may have caused or at least contributed to the hyperkalemia. Her most recent baseline creatinine appears to be somewhere around 1.2. (7) Hyperkalemia Status: Acute Assessment & Plan: As above, this may at least be partially due to the acute kidney injury on chronic kidney disease. She has now received calcium gluconate, albuterol, insulin, and D50. Her potassium levels will need to be followed serially until they normalize. This will be managed by the hospitalist and reinforced steel placing supervisor. (8) Unresponsive Status: Acute Assessment & Plan: Etiology unclear. Toxicology screen is pending as ordered by the emergency room physician. The patient is also getting a head CT. DUTCH MORILLO JR, MD Apr 14, 2021 20:34
[2021-04-14 20:43] LABS: BILIRUBIN,URINE NEGATIVE (NEGATIVE); CLARITY,URINE CLEAR; COLOR,URINE YELLOW; GLUCOSE, URINE (UA) 1+ (NEGATIVE); KETONES,URINE NEGATIVE (NEGATIVE); LEUKOCYTE ESTERASE ,URINE NEGATIVE (NEGATIVE); NITRITE,URINE NEGATIVE (NEGATIVE); PROTEIN,URINE TRACE (NEGATIVE)
[2021-04-14 20:54] LABS: BACTERIA,URINE FEW /HPF; WBC,URINE RARE /HPF
[2021-04-14 20:55] LABS: HYALINE CASTS, URINE 0-2 /LPF; YEAST,URINE LARGE /HPF
[2021-04-14] MEDS ORDERED: PROPOFOL DRIP (ICU) 100 ML IV SCH ×2 (21:00→21:45)
--- NOTE | 2021-04-14 21:07 | Diagnostic Imaging Report ---
PROCEDURE: CT head w/o r/o stroke. TECHNIQUE: Multiple contiguous axial images were obtained through the brain without the use of intravenous contrast. Auto Exposure Controls were utilized during the CT exam to meet ALARA standards for radiation dose reduction. INDICATION: "Neurological deficits". COMPARISON: Head CT of 03/14/2021. FINDINGS: There has been no interval change. There is no intracranial hemorrhage, hydrocephalus, edema, mass, mass effect or evidence for an elevation of the intracerebral pressures. The basilar cisterns are patent. There is no sulcal effacement. Orbits, sinuses and calvarium nonacute. There is no loss of the armenta-white matter differentiations. No sulcal effacement. IMPRESSION: Stable head CT. No hemorrhage, edema or acute appearing abnormality. Dictated by: Dictated on workstation # [id number]
[2021-04-14] MEDS ORDERED: HEParin 1000 UNIT/ML (10ML VIAL) FOR BOLUS IV SCH (21:45)
[2021-04-14 21:58] LABS: AMPHETAMINE SCREEN, URINE NEGATIVE (NEGATIVE); BARBITURATE SCREEN URINE NEGATIVE (NEGATIVE); BENZODIAZEPINES SCREEN URINE NEGATIVE (NEGATIVE); CANNABINOID SCREEN, URINE NEGATIVE (NEGATIVE); COCAINE SCREEN URINE NEGATIVE (NEGATIVE); METHADONE STAT NEGATIVE (NEGATIVE); METHAMPHETAMINE SCREEN URINE S NEGATIVE (NEGATIVE); OPIATE SCREEN URINE NEGATIVE (NEGATIVE); OXYCODONE STAT NEGATIVE (NEGATIVE); PROPOXYPHENE STAT NEGATIVE (NEGATIVE); TRICYCLIC ANTIDEPRESSANTS SCRE NEGATIVE (NEGATIVE)
[2021-04-14 22:02] LABS: CHLORIDE 104 MMOL/L (98-107); POTASSIUM 5.9 MMOL/L (3.6-5.0); SODIUM 129 MMOL/L (135-145)
[2021-04-14 22:03] LABS: CALCIUM 8.6 MG/DL (8.5-10.1)
[2021-04-14 22:04] LABS: AMMONIA 35 UMOL/L (11-32); TRIGLYCERIDES 82 MG/DL (<150)
[2021-04-14 22:05] LABS: GLUCOSE 64 MG/DL (70-105); TOTAL PROTEIN 5.7 GM/DL (6.4-8.2)
[2021-04-14 22:06] LABS: BILIRUBIN,TOTAL 1.2 MG/DL (0.1-1.0); CARBON DIOXIDE 14 MMOL/L (21-32)
[2021-04-14 22:08] LABS: ALKALINE PHOSPHATASE 236 U/L (40-136)
[2021-04-14 22:09] LABS: ACETAMINOPHEN 14 UG/ML (10-30); GFR ESTIMATED 40
[2021-04-14 22:10] LABS: BUN/CREATININE RATIO 25
[2021-04-14 22:12] LABS: ALANINE AMINOTRANSFERASE 37 U/L (0-55)
[2021-04-14 22:31] LABS: TSH (THYROID ANALYZER) 22.21 UIU/ML (0.35-4.94)
[2021-04-14] MEDS ORDERED: SODIUM BICARB 8.4% 50 MEQ/50 ML (ABBOTT) SYR IV ONE (23:00)
[2021-04-14] MEDS ORDERED: CALCIUM GLUC. 10% 4.65 MEQ/10 ML VIAL IV ONE (23:00)
[2021-04-14 23:06] LABS: FREE T4 (FREE THYROXINE) 0.74 NG/DL (0.70-1.48)
[2021-04-14] MEDS: NOREPINEPHRINE 8 MG/250 ML 250 ML IV SCH (23:22)
--- NOTE | 2021-04-14 23:23 | Tele-ICU Progress Note ---
Progress Note 61F with , mechanical valve, CAD, NHL s/p chemo, CAPELLAN cirrhosis admitted with STEMI. 911 called for resp distress, cyanosis, altered mentation. EMS noted STEMI, sumaya, hypotensive. Due to instability, brought to nearest stand alone ER. She was unresponsive in ER, ETT. SBP as low as 60s, HR 40s. EKG with ST elevations in inferior leads with reciprical changes (per ER note). Just prior to transfer to [facility] for emergent cath, K resulted at 7.2. Calcium gluconate and albuterol were given en route. Unclear if other treatments were given. On arrival, levo initiated for hypotension. EKG with afib, RBBB, no evidence of ST derrangements. Code STEMI was cnacelled. STAT bedside echo with severe LVH, hyperdynamic EF 70-75, flattening of IVS. Repeat K on arrival improved to 6.1, post-procedure repeat pending. - ACS: initially appeared to be STEMI, but resolved. May have had complete heart block, now resolved. Emergent cath cancelled. Noted to have elevated right sided pressures. Baseline unknown. Per cadiology PE less likely with therapuetic AC. May have had intermittent subtherapuetic episodes. But imaging will not business change manager at this time. - ARF: ETT for airway protection. Oxygenating well. Wean vent per protocol. - hyperkalemia: improved from 7.2 to 6.1 to 5.9. Will give additional bicarb, calcium, insulin, dextrose. - LEONORA: creatinine 1.6. Baseline 1-1.2. Like ATN secondary to hypoperfusion. Avoid hypotension, nephrotoxins. Monitor UOP, renal function. - metabolic acidosis: mild, given ACS will initiate bicarb gtt. - chronic liver failure: appears to have significant ascites, anasarca. No specific interventions. Focused Exam Lactate Level 04/14/21 21:21: Lactic Acid Level 3.12*H Height, Weight, BMI Height: '" Weight: lbs. oz. kg; 21.00 BMI Method: Lactic Acid Level Laboratory Tests Test 04/14/21 21:21 Lactic Acid Level 3.12 MMOL/L (0.50-2.00) *H OZZY SALDIVAR MD Apr 14, 2021 23:23
[2021-04-14] MEDS ORDERED: DexMEDEtomidine 250 ML DRIP 250 ML IV ONE (23:29)
[2021-04-14] MEDS: DexMEDEtomidine 250 ML DRIP 250 ML IV SCH (23:34)
[2021-04-14] MEDS ORDERED: fentaNYL INJ 100 MCG/2 ML AMP IV ONE (23:45)
[2021-04-14] MEDS: NS IV 1000 ML 1,000 ML IV SCH (23:59)
[2021-04-15] VITALS (30 sets, daily range): BP systolic 91–119; BP diastolic 58–77
[2021-04-15] MEDS ORDERED: SODIUM BICARB 8.4% 50 MEQ/50 ML (ABBOTT) SYR ONE (00:17)
[2021-04-15] MEDS ORDERED: 1/2 NS IV SOLUTION 1,000 ML IV ONE (00:18)
[2021-04-15] MEDS: SODIUM BICARBONATE 8.4% VIAL 100 MEQ in 1/2 NS IV SOLUTION 1,000 ML IV SCH ×3 (00:20→18:32)
[2021-04-15] MEDS: fentaNYL DRIP PRE-MIX 250 ML IV SCH ×4 (00:20→20:35)
[2021-04-15 05:22] LABS: BASOPHILS % (AUTO) 0 % (0-10); EOSINOPHILS % (AUTO) 0 % (0-10); HEMATOCRIT 40 % (35-52); LYMPHOCYTES # (AUTO) 0.6 10^3/uL (1.0-4.0); LYMPHOCYTES % (AUTO) 5 % (12-44); MEAN CORPUSCULAR HEMOGLOBIN 30 pg (25-34); MEAN CORPUSCULAR HGB CONC 33 g/dL (32-36); MEAN CORPUSCULAR VOLUME 92 fL (80-99); MEAN PLATELET VOLUME 9.1 fL (9.0-12.2); MONOCYTES # (AUTO) 0.6 10^3/uL (0.0-1.0); MONOCYTES % (AUTO) 5 % (0-12); NEUTROPHILS # (AUTO) 10.1 10^3/uL (1.8-7.8); NEUTROPHILS % (AUTO) 89 % (42-75); PLATELET COUNT 279 10^3/uL (130-400); WHITE BLOOD COUNT 11.3 10^3/uL (4.3-11.0)
[2021-04-15 05:24] LABS: ABG BASE EXCESS -4.4 MMOL/L (-2.5-2.5); ABG OXYGEN SATURATION 96 % (94-100); ABG PCO2 37 MMHG (35-45); ABG PH 7.35 (7.37-7.43); ABG PO2 88 MMHG (79-93); ABG TCO2 21.3 MMOL/L (21.0-31.0)
[2021-04-15 05:25] LABS: ALLENS TEST YES-POS; INSPIRED O2 21%; VENTILATOR YES
[2021-04-15 05:44] LABS: ALBUMIN 2.8 GM/DL (3.2-4.5); POTASSIUM 5.5 MMOL/L (3.6-5.0)
[2021-04-15 05:45] LABS: CALCIUM 8.3 MG/DL (8.5-10.1)
[2021-04-15 05:47] LABS: TOTAL PROTEIN 5.4 GM/DL (6.4-8.2)
[2021-04-15 05:48] LABS: BILIRUBIN,TOTAL 1.1 MG/DL (0.1-1.0)
[2021-04-15 05:50] LABS: CREATININE SERUM 1.44 MG/DL (0.60-1.30)
--- NOTE | 2021-04-15 05:53 | ED General ---
General Chief Complaint: Cardiac/General Problems Stated Complaint: AMS,RESP FAILURE, ELEV TROPONIN Nursing Triage Note: Patient brought to the ED by EMS for chief complaint of STEMI and bradycardia requiring pacing. Nursing Sepsis Screen: Severe Sepsis Risk Source of Information: EMS, Old Records (PER [place] [facility] RECORDS ), Other (DR. MORILLO) History of Present Illness Date Seen by Provider: Apr 14, 2021 Time Seen by Provider: 19:50 Initial Comments PT ARRIVES VIA [facility] EMS IN TRANSPORT FROM [place] [facility] DR. MORILLO HAD BEEN CONTACTED BY [facility] PRIOR TO TRANSFER FOR DX OF STEMI, AND PLAN WAS TO TAKE PT DIRECTLY TO [facility] [facility] [facility] WAS INFORMED BY DR. MORILLO JUST PRIOR TO PT'S ARRIVAL, THAT PT WOULD NEED TO BE SEEN IN THIS ER PRIOR TO TAKING TO [employer], DUE TO POTASSIUM LEVEL OF 7.2. DR. MORILLO IS HERE ON PT'S ARRIVAL TO ER AND CO-MANAGING PT WHILE IN ER. EMS WAS CALLED TO THE HOME FOR PT WITH DIFFICULTY BREATHING, AND FOUND TO BE UNRESPONSIVE WITH O2 SAT OF 60%, HEART RATE OF 30 PT WAS TAKEN TO [place] [facility] AND WAS INTUBATED AND EXTERNAL PACER PLACED. PT WAS GIVEN VERSED AND FENTANYL PRIOR TO INTUBATION. PT WAS GIVEN CALCIUM GLUCONATE 2 GM PRIOR TO ARRIVAL HERE. MUCH LATER DURING ER COURSE, EMS REPORTED TO CAREER DEVELOPMENT COUNSELOR THAT THEY WERE CALLED BY THE MALE IN THE HOME ( ACTUALLY PT'S BOYFRIEND) EARLY THIS MORNING, WANTING THEM TO BRING PT SOME OXYGEN BECAUSE SHE WASN'T ACTING RIGHT. REPORTEDLY EMS DID NOT GO TO THE HOME AT THAT TIME. NO ADDITIONAL INFORMATION IS OBTAINABLE ON ARRIVAL. PT HAS ONLY HAD ER VISITS TO [place] SINCE 08/2020. NO PRIOR ADMISSIONS OR ER VISITS HERE SEE [place] [facility] CHARTS FOR DETAILS. PT HAS REPORTED CONFUSION, POOR MEMORY, AND FREQUENT FALLS ON PRIOR VISITS THERE. PCP: DR. PEREYRA, [facility]. Allergies and Home Medications Allergies Coded Allergies: No Known Drug Allergies (Unverified , 09/09/20) Patient Home Medication List Home Medication List Reviewed: Yes Baclofen (Baclofen) 10 Mg Tablet, 10 MG PO BID PRN for MUSCLE SPASMS Prescribed by: BHARGAV BLOCK on 03/11/21 1406 Cephalexin (Cephalexin) 500 Mg Tablet, 500 MG PO TID Prescribed by: WADE JOHNSON on 12/13/20 6115 Review of Systems Review of Systems Constitutional: other (UNABLE TO OBTAIN FROM PT. 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 ) Lymphoma Did You Recieve Any Treatments: Yes What Type of Treatment Did You: Chemotherapy Psychosocial: No Depression Integumentary: No Blood Disorders: Yes (Anemia) Family Medical History PT RECEIVES ALL SPECIALTY CARE AT : ADDITIONAL PAST MEDICAL/PROCEDURAL HISTORY: -MULTIPLE PARACENTESIS PROCEDURES FOR CHRONIC ASCITES -HX OF GI BLEED -ABDOMINAL WALL HEMATOMA 10/2020 REQUIRING ADMIT TO -LEFT THIGH HEMATOMA 02/2021 Physical Exam Vital Signs Vital Signs - First Documented 04/14/21 04/14/21 18:45 19:50 Temp 35.2 Pulse 80 Resp 12 B/P (MAP) 72/58 (63) Pulse Ox 85 O2 Delivery NIV CPAP O2 Flow Rate 16.00 FiO2 30 Capillary Refill : Less Than 3 Seconds Height, Weight, BMI Height: '" Weight: lbs. oz. kg; 21.00 BMI Method: General Appearance: Other (PT IS INTUBATED AND SEDATED ON ARRIVAL WITH EXTERNAL PACER IN PLACE) Respiratory: Normal Breath Sounds (WITH VENTILATOR) Cardiovascular: Regular Rate, Rhythm, Systolic Murmur (5/6 MURMUR WITH MECHANICAL CLICK. ) Gastrointestinal: Soft, Other (OLDER APPEARING BRUISING TO ABDOMEN AND THIGHS. NO EVIDENCE OF FRESH BRUSING; DOES APPEAR TO HAVE ABDOMINAL ASCITES ON EXAM. ) Extremity: No Pedal Edema Neurologic/Psychiatric: Other (SEDATED. ) Skin: Warm/Dry; No Petechia Focused Exam Lactate Level 04/14/21 21:21: Lactic Acid Level 3.12*H Lactic Acid Level Laboratory Tests Test 04/14/21 21:21 Lactic Acid Level 3.12 MMOL/L (0.50-2.00) *H Procedures/Interventions Reason for Intubation: unresponsive Date of ETT Placement: Apr 14, 2021 Time of ETT Placement: 19:00 Intubation Method: orotracheal Tube Size: 7.50 Breath Sounds after Intubation: bilateral-equal Intubation Complications: no complications Post Intubation Xray: Yes ETT in good position Progress/Results/Core Measures Suspected Sepsis Infection Criteria Present: Suspected New Infection Sepsis Screen: Severe Sepsis Risk SIRS Temperature: Pulse: 81 Respiratory Rate: 16 Laboratory Tests 04/14/21 19:00: White Blood Count 13.2H 04/14/21 20:00: White Blood Count 9.2 Blood Pressure 92 /61 Mean: 89 04/14/21 21:21: Lactic Acid Level 3.12*H Laboratory Tests 04/14/21 19:00: INR Comment 1.6H, Platelet Count 289, Total Bilirubin 1.1H 04/14/21 20:00: Platelet Count 185, Creatinine 1.65H 04/14/21 21:34: Total Bilirubin 1.2H, Creatinine 1.50H Results/Orders Lab Results Laboratory Tests Test 04/14/21 19:00 04/14/21 20:00 04/14/21 20:05 04/14/21 20:12 Range/Units White Blood Count 13.2 H 9.2 4.3-11.0 10^3/uL Red Blood Count 4.36 3.87 3.80-5.11 10^6/uL Hemoglobin 13.4 11.7 11.5-16.0 g/dL Hematocrit 44 37 35-52 % Mean Corpuscular Volume 101 H 95 80-99 fL Mean Corpuscular Hemoglobin 31 30 25-34 pg Mean Corpuscular Hemoglobin Concent 31 L 32 32-36 g/dL Red Cell Distribution Width 20.2 H 19.5 H 10.0-14.5 % Platelet Count 289 185 130-400 10^3/uL Mean Platelet Volume 10.2 10.4 9.0-12.2 fL Immature Granulocyte % (Auto) 1 1 % Neutrophils (%) (Auto) 74 89 H 42-75 % Lymphocytes (%) (Auto) 18 4 L 12-44 % Monocytes (%) (Auto) 6 5 0-12 % Eosinophils (%) (Auto) 1 1 0-10 % Basophils (%) (Auto) 0 0 0-10 % Neutrophils # (Auto) 9.8 H 8.2 H 1.8-7.8 10^3/uL Lymphocytes # (Auto) 2.3 0.3 L 1.0-4.0 10^3/uL Monocytes # (Auto) 0.8 0.5 0.0-1.0 10^3/uL Eosinophils # (Auto) 0.1 0.1 0.0-0.3 10^3/uL Basophils # (Auto) 0.0 0.0 0.0-0.1 10^3/uL Immature Granulocyte # (Auto) 0.2 H 0.1 0.0-0.1 10^3/uL Prothrombin Time 19.1 H 12.2-14.7 SEC INR Comment 1.6 H 0.8-1.4 Activated Partial Thromboplast Time 37 H 24-35 SEC Sodium Level 123 *L 128 L 135-145 MMOL/L Potassium Level 7.2 *H 6.1 H 3.6-5.0 MMOL/L Chloride Level 94 L 105 98-107 MMOL/L Carbon Dioxide Level 13 L 13 L 21-32 MMOL/L Anion Gap 16 H 10 5-14 MMOL/L Blood Urea Nitrogen 40 H 37 H 7-18 MG/DL Creatinine 1.65 H 1.65 H 0.60-1.30 MG/DL Estimat Glomerular Filtration Rate 36 36 BUN/Creatinine Ratio 24 22 Glucose Level 125 H 98 70-105 MG/DL Calcium Level 9.0 8.6 8.5-10.1 MG/DL Corrected Calcium 9.7 8.5-10.1 MG/DL Magnesium Level 2.6 H 1.6-2.4 MG/DL Total Bilirubin 1.1 H 0.1-1.0 MG/DL Aspartate Amino Transf (AST/SGOT) 106 H 5-34 U/L Alanine Aminotransferase (ALT/SGPT) 34 0-55 U/L Alkaline Phosphatase 241 H 40-136 U/L Troponin I < 0.30 0.142 H <0.028 NG/ML Pro-B-Type Natriuretic Peptide 5021.0 H <75.0 PG/ML Total Protein 5.9 L 6.4-8.2 GM/DL Albumin 3.1 L 3.2-4.5 GM/DL Percent Immature Platelet Fraction 3.7 0.0-7.6 % D-Dimer 2.40 H 0.00-0.49 UG/ML B-Type Natriuretic Peptide 2321.2 H <100.0 PG/ML Blood Gas Puncture Site LEFT RADIAL Blood Gas Patient Temperature 36.5 Arterial Blood pH 7.24 *L 7.37-7.43 Arterial Blood Partial Pressure CO2 41 35-45 MMHG Arterial Blood Partial Pressure O2 53 L 79-93 MMHG Arterial Blood HCO3 17 *L 23-27 MMOL/L Arterial Blood Total CO2 18.4 L 21.0-31.0 MMOL/L Arterial Blood Oxygen Saturation 74 L 94-100 % Arterial Blood Base Excess -9.2 L -2.5-2.5 MMOL/L Joshua Test YES-POS Blood Gas Ventilator Setting YES Blood Gas Inspired Oxygen 30% Influenza Type A (RT-PCR) Not Detected Not Detecte Influenza Type B (RT-PCR) Not Detected Not Detecte SARS-CoV-2 RNA (RT-PCR) Not Detected Not Detecte Test 04/14/21 20:38 04/14/21 21:21 04/14/21 21:34 Range/Units Urine Color YELLOW Urine Clarity CLEAR Urine pH 6.0 5-9 Urine Specific Cornelius 1.010 L 1.016-1.022 Urine Protein TRACE H NEGATIVE Urine Glucose (UA) 1+ H NEGATIVE Urine Ketones NEGATIVE NEGATIVE Urine Nitrite NEGATIVE NEGATIVE Urine Bilirubin NEGATIVE NEGATIVE Urine Urobilinogen 0.2 < = 1.0 MG/DL Urine Leukocyte Esterase NEGATIVE NEGATIVE Urine RBC (Auto) TRACE-I H NEGATIVE Urine RBC NONE /HPF Urine WBC RARE /HPF Urine Squamous Epithelial Cells NONE /HPF Urine Crystals NONE /LPF Urine Bacteria FEW H /HPF Urine Casts PRESENT /LPF Urine Hyaline Casts 0-2 H /LPF Urine Mucus NEGATIVE /LPF Urine Yeast LARGE H /HPF Urine Culture Indicated YES Urine Opiates Screen NEGATIVE NEGATIVE Urine Oxycodone Screen NEGATIVE NEGATIVE Urine Methadone Screen NEGATIVE NEGATIVE Urine Propoxyphene Screen NEGATIVE NEGATIVE Urine Barbiturates Screen NEGATIVE NEGATIVE Ur Tricyclic Antidepressants Screen NEGATIVE NEGATIVE Urine Phencyclidine Screen NEGATIVE NEGATIVE Urine Amphetamines Screen NEGATIVE NEGATIVE Urine Methamphetamines Screen NEGATIVE NEGATIVE Urine Benzodiazepines Screen NEGATIVE NEGATIVE Urine Cocaine Screen NEGATIVE NEGATIVE Urine Cannabinoids Screen NEGATIVE NEGATIVE Lactic Acid Level 3.12 *H 0.50-2.00 MMOL/L Sodium Level 129 L 135-145 MMOL/L Potassium Level 5.9 H 3.6-5.0 MMOL/L Chloride Level 104 98-107 MMOL/L Carbon Dioxide Level 14 L 21-32 MMOL/L Anion Gap 11 5-14 MMOL/L Blood Urea Nitrogen 37 H 7-18 MG/DL Creatinine 1.50 H 0.60-1.30 MG/DL Estimat Glomerular Filtration Rate 40 BUN/Creatinine Ratio 25 Glucose Level 64 L 70-105 MG/DL Calcium Level 8.6 8.5-10.1 MG/DL Corrected Calcium 9.4 8.5-10.1 MG/DL Total Bilirubin 1.2 H 0.1-1.0 MG/DL Aspartate Amino Transf (AST/SGOT) 106 H 5-34 U/L Alanine Aminotransferase (ALT/SGPT) 37 0-55 U/L Alkaline Phosphatase 236 H 40-136 U/L Ammonia 35 H 11-32 UMOL/L Lactate Dehydrogenase 349 H 125-220 U/L C-Reactive Protein High Sensitivity 4.89 H 0.00-0.50 MG/DL Total Protein 5.7 L 6.4-8.2 GM/DL Albumin 3.0 L 3.2-4.5 GM/DL Triglycerides Level 82 <150 MG/DL Procalcitonin 0.11 H <0.10 NG/ML Free Thyroxine 0.74 0.70-1.48 NG/DL TSH [place] Testing 22.21 H 0.35-4.94 UIU/ML Digoxin Level < 0.30 L 0.80-2.00 NG/ML Acetaminophen Level 14 10-30 UG/ML Serum Alcohol < 10 <10 MG/DL My Orders Orders - MICHELLE MOREJON DO Ekg Tracing (04/14/21 19:54) Monitor-Rhythm Ecg Trace Only (04/14/21 19:54) Albuterol Pre-Mix Nebs (Rt) (Proventil (04/14/21 19:54) Rt Request For Service (04/14/21 19:54) Svn Small Volume Nebulizer (04/14/21 19:54) Arterial Blood Gas (04/14/21 19:54) Basic Metabolic Panel (04/14/21 19:54) Bnp [place] (04/14/21 19:54) Cbc With Automated Diff (04/14/21 19:54) Troponin I [place] (04/14/21 19:54) Insulin (Regular) Human (Novolin R (Per (04/14/21 20:00) D50w (Emergency) Syringe (Dextrose 50% 5 (04/14/21 20:00) Norepinephrine 8 Mg/250 Ml (Norepinephri (04/14/21 20:15) Norepinephrine 8 Mg/250 Ml (Norepinephri (04/14/21 20:03) Ct Head Wo-R/O Stroke (04/14/21 20:28) Lactic Acid Analyzer (04/14/21 20:29) Procalcitonin (Pct) (04/14/21 20:29) Ua Culture If Indicated (04/14/21 20:29) Blood Culture (04/14/21 20:29) Comprehensive Metabolic Panel (04/14/21 20:29) Fibrin Degradation Products (04/14/21 20:29) Hs C Reactive Protein (04/14/21 20:29) LDH (04/14/21 20:29) Covid 19 Inhouse Test (04/14/21 20:29) Influenza A And B By Pcr (04/14/21 20:29) Isolation Central Supply Req (04/14/21 20:29) Digoxin (04/14/21 20:33) Acetaminophen (04/14/21 20:45) Alcohol (04/14/21 20:45) Ammonia (04/14/21 20:45) Drug Screen Stat (Urine) (04/14/21 20:45) Thyroid Analyzer (04/14/21 20:45) Urine Culture (04/14/21 20:38) Ed Iv/Invasive Line Start (04/14/21 21:00) Ns Iv 1000 Ml (Sodium Chloride 0.9%) (04/14/21 21:00) Propofol Drip (Icu) (Diprivan Drip (Icu) (04/14/21 21:00) Triglycerides (04/14/21 21:00) Triglycerides (04/16/21 21:00) Free T4 (Free Thyroxine) (04/14/21 21:34) Medications Given in ED Current Medications Medications Dose Ordered Sig/Simone Route Start Time Stop Time Status Last Admin Dose Admin Dextrose 50 ml ONCE ONCE IV 04/14/21 20:00 04/14/21 20:01 DC 04/14/21 20:13 50 ML Insulin Human Regular 10 unit ONCE ONCE IV 04/14/21 20:00 04/14/21 20:01 DC 04/14/21 20:13 10 UNIT Vital Signs/I&O 04/14/21 04/14/21 04/14/21 04/14/21 18:45 19:18 19:50 19:55 Temp 35.2 Pulse 80 80 72 Resp 12 18 16 B/P (MAP) 72/58 (63) 114/68 (83) Pulse Ox 85 97 100 100 O2 Delivery NIV CPAP Mechanical Ventilator Mechanical Ventilator O2 Flow Rate 16.00 FiO2 30 70 04/14/21 04/14/21 20:40 21:23 Pulse 66 79 B/P (MAP) 124/82 04/15/21 00:00 Intake Total 2000 ml Balance 2000 ml Capillary Refill : Less Than 3 Seconds Blood Pressure Mean: 89 Progress Note : Progress Note BP ON ARRIVAL HERE IS 55 SYSTOLIC--LEVOPHED ORDERED. PT WAS GIVEN HOUR LONG ALBUTEROL TREATMENT FOR HYPERKALEMIA, ALONG WITH D50 AND INSULIN. WILL HOLD KAYEXELATE AT THIS TIME, AFTER DISCUSSING WITH DR. MORILLO. EKG DONE ON ARRIVAL HERE, DOES NOT SHOW EVIDENCE OF STEMI, DOES HAVE SOME ANT ERIOR/LATERAL ST DEPRESSION, BUT HAS A RBBB THAT IS UNCHANGED FROM EKG FROM 03/14/21. DR. MORILLO HAS CALLED OFF CURED MEAT PACKING SUPERVISOR AT THIS TIME, DUE TO NO EVIDENCE OF STEMI ON EKG, AND OTHER CRITICAL ISSUES THAT NEED TO BE ADDRESSED. PROPOFOL WAS STARTED FOR SEDATION. ECHOCARDIOGRAM WAS ORDERED BY DR. MORILLO IN ER, AND HE REPORTS THAT PT HAS A NORMAL EJECTION FRACTION, BUT HAS SEVERE PULMONARY HTN. . CT OF HEAD, WELL ADDITIONAL LAB ORDERED TO FIND ADDITIONAL CAUSES FOR UNRESPONSIVENESS. ECG Initial ECG Impression Date: Apr 14, 2021 Initial ECG Impression Time: 19:56 Initial ECG Rate: 65 Comment NO P-WAVES, BUT HAS SUPRAVENTRICULAR RHYTHM, RBBB, ST DEPRESSION ANTERIOR/LATERAL LEADS. NO STEMI. Diagnostic Imaging Comments CT HEAD--PER RADIOLOGIST REPORT AT 2109 FINDINGS: There has been no interval change. There is no intracranial hemorrhage, hydrocephalus, edema, mass, mass effect or evidence for an elevation of the intracerebral pressures. The basilar cisterns are patent. There is no sulcal effacement. Orbits, sinuses and calvarium nonacute. There is no loss of the armenta-white matter differentiations. No sulcal effacement. IMPRESSION: Stable head CT. No hemorrhage, edema or acute appearing abnormality. REVIEWED CXR DONE AT [place] [facility]: FINDINGS: Sternal wires are midline. ET or trach tube tip mid thoracic trachea. OG catheter is in the upper stomach. The heart is enlarged but is decreased in size from the prior. There is mild vascular prominence but this also improved. IMPRESSION: Support apparatus in good alignment. Improvements in cardiomegaly and vascular congestion. No pneumothorax or significant pleural fluid apparent. No adverse development from prior. OG catheter in the upper stomach. Reviewed: Reviewed by Me Departure Communication (Admissions) Family Conversation 2121--SPOKE WITH PT'S SON, CUCO, AND UPDATED HIM ON PT'S CONDITION. HE STATES HE IS HER DPOA, AND HE LIVES IN [place]. HE STATES THAT PT LIVES WITH HER BOYFRIEND. SHE FRACTURED HER PELVIS 1 MONTH AGO AND WAS IN [facility], AND THEN WENT TO [facility] IN [place] FOR REHAB, BUT PT REMOVED HERSELF FROM THE FACILITY ON Friday04/12/21 AND WENT BACK HOME. HE SPOKE WITH HER LAST NIGHT, AND SHE HAD NAUSEA/VOMITING/DIARRHEA LAST NIGHT AFTER SHE ATE [facility]. HE SPOKE WITH HER EARLIER TODAY AND SHE WAS VERY WEAK WHEN HE TALKED WITH HER, THEN DID NOT HEAR ANYTHING UNTIL THIS EVENING WITH HER CURRENT PROBLEM. HE REPORTS THAT SHE HAS EXTENSIVE MEDICAL PROBLEMS, INCLUDING CHF, LIVER FAILURE, KIDNEY FAILURE, HX OF LYMPHOMA 18 YEARS AGO, AORTIC VALVE REPLACEMENT AND HAD 3 DIFFERENT OPEN HEART SURGERIES FOR THIS HE STATES SHE HAS HAD COVID-19 VACCINES X 2, BUT DOES NOT KNOW IF SHE HAS HAD A BOOSTER VACCINE. HE STATES AT THIS TIME, SHE IS A FULL CODE. DISCUSSED HER CRITICAL CONDITION AND POOR PROGNOSIS AND HE APPEARS TO UNDER STAND. IN ER FOR MUCH OF PT'S ER STAY, HE ADVISES TO ADMIT TO HOSPITALIST AND HE WILL CONTINUE TO CONSULT ON PT. HE DOES NOT ADVISE ADDITIONAL CT CHEST ANGIOGRAM AT THIS TIME, DUE TO RENAL FUNCTION. 2013--SPOKE WITH DR. ARREDONDO, ACCEPTS PT FOR ADMIT. SHE WILL DO ADMIT ORDERS, AND CONSULT E-ICU. Impression Primary Impression: Unresponsive Additional Impressions: Acute respiratory failure Chronic liver failure Chronic renal failure Hyperkalemia SEVERE BRADYCARDIA SHOCK-MULTIFACTORIAL Elevated troponin CHF (congestive heart failure) Hx of aortic valve replacement Chronic anticoagulation Complete heart block RECENT PELVIS FRACTURE Hyponatremia Recurrent falls Ascites Disposition: ADMITTED INPATIENT Condition: Critical Admissions Decision to Admit Reason: Admit from ER (General) Decision to Admit/Date: Apr 14, 2021 Time/Decision to Admit Time: 20:25 Departure-Patient Inst. Referrals: SELFDULCE MARIA MD (PCP) Primary Care Physician MICHELLE MOREJON DO Apr 15, 2021 05:53
[2021-04-15] MEDS ORDERED: POTASSIUM CL 10MEQ/50ML IVPB 50 ML IV SCH (06:00)
[2021-04-15] MEDS: KCL 20 MEQ TAB (K-DUR) PO SCH (06:03)
[2021-04-15] MEDS: NS IV 1000 ML 1,000 ML IV SCH ×3 (06:11→21:40)
[2021-04-15] MEDS: MAGNESIUM 1 GM/100 ML IVPB 100 ML IV SCH (06:12)
--- NOTE | 2021-04-15 07:05 | History & Physical-Hospitalist ---
History of Present Illness HPI/Chief Complaint Chief complaint: Septic shock with respiratory failure History of present illness: This is a 61-year-old white female who was transferred to the nearest cardiac Machine Ironer instead of her usual med admission due to what appeared to be an ST elevation IL. She was diagnosed with shock and intubated for airway safety. She was found to have potassium of 7.2 giving rise to what appeared to be a STEMI but it was not. Dr. Queen had been in the ER awaiting her arrival. Considering no STEMI she was admitted to ICU wi th septic shock possibly from SBP considering UA and chest x-ray were within normal limits. She appears to be very debilitated and I did review [facility] records and she receives paracenteses on a regular basis due to end-stage liver disease and she had been holding her Coumadin due to requiring the procedure. Her INR was 1.6. Echocardiogram revealed severely elevated PA pressure so heparin drip was initiated due to suspicion for massive PE. Chronic kidney disease precluded angiogram to confirm suspicion of PE. She does have paroxysmal atrial fibrillation. After pancultured she was placed on Levaquin for SBP coverage. Patient appears to be very end-of-life. Source: patient Exam Limitations: no limitations Date Seen 04/15/21 Time Seen by a Provider: 11:30 Attending Physician Romina Solitario DO PCP Self,Garfield OLVERA Referring Physician Date of Admission Apr 14, 2021 at 21:37 Home Medications & Allergies Home Medications Reviewed patient Home Medication Reconciliation performed by pharmacy medication reconciliations certified ophthalmic technician and/or nursing. Patients Allergies have been reviewed. Allergies Allergies Coded Allergies No Known Drug Allergies (Unverified09/09/20) Past Cxsghyd-Ruaubq-Jxivtc Hx Patient Social History Marrital Status: Employed/Student: unemployed Tobacco Use?: No Smoking Status: Unknown if Ever Smoked Pt feels they are or have been: No Immunizations Up To Date First/Initial COVID19 Vaccinat: 05/2020 Second COVID19 Vaccination Yariel: 05/2020 Seasonal Allergies Seasonal Allergies: No Current Status Communicates: Verbally Primary Language: Latvian Preferred Spoken Language: Latvian Past Medical History Surgeries: Abdominal, Cardiac, Hysterectomy, Open Heart Surgery, Valve Replacement Atrial Fibrillation, Coronary Artery Disease, Valvular Heart Disease 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, Menopausal Renal Failure Liver Disease/Jaundice, Gastrointestinal Bleed, Cirrhosis Lymphoma Did You Recieve Any Treatments: Yes What Type of Treatment Did You: Chemotherapy Depression Blood Disorders: Yes (Anemia) Family Medical History PT RECEIVES ALL SPECIALTY CARE AT : ADDITIONAL PAST MEDICAL/PROCEDURAL HISTORY: -MULTIPLE PARACENTESIS PROCEDURES FOR CHRONIC ASCITES -HX OF GI BLEED -ABDOMINAL WALL HEMATOMA 10/2020 REQUIRING ADMIT TO -LEFT THIGH HEMATOMA 02/2021 Review of Systems ROS-Unable to Obtain: Intubated Constitutional: see HPI Physical Exam Physical Exam Vital Signs Vital Signs - First Documented 04/14/21 04/14/21 18:45 19:50 Temp 35.2 Pulse 80 Resp 12 B/P (MAP) 72/58 (63) Pulse Ox 85 O2 Delivery NIV CPAP O2 Flow Rate 16.00 FiO2 30 Capillary Refill : Less Than 3 Seconds Height, Weight, BMI Height: '" Weight: lbs. oz. kg; 21.00 BMI Method: General Appearance: No Apparent Distress, Chronically ill Eyes: Right Eye Normal Inspection, Right Eye PERRL Neck: Normal Inspection Respiratory: Chest Non Tender, Lungs Clear, Normal Breath Sounds, Decreased Breath Sounds Cardiovascular: Regular Rate, Rhythm, No Gallop, No JVD, Normal Peripheral Pulses, Systolic Murmur Gastrointestinal: Normal Bowel Sounds, No Organomegaly, No Pulsatile Mass Back: Normal Inspection Extremity: Normal Capillary Refill, Normal Inspection, Normal Range of Motion, Non Tender, No Calf Tenderness, Pedal Edema Neurologic/Psychiatric: Alert, Oriented x3, No Motor/Sensory Deficits, Normal Mood/Affect Skin: Normal Color, Warm/Dry Lymphatic: No Adenopathy Results Results/Procedures Labs Laboratory Tests 04/14/21 19:00 04/14/21 20:00 04/14/21 21:34 04/15/21 05:12 Patient resulted labs reviewed. Assessment/Plan Admission Diagnosis Assessment: Septic shock Respiratory failure intubated in ER Severe hyperkalemia Chronic kidney disease End-stage liver disease Ascites receiving paracentesis often at Possible SBP placed on Levaquin renal dosed Paroxysmal atrial fibrillation Aortic valve replacement Plan: Heparin drip Cardiology consult May need paracentesis Prognosis guarded Admission Status: Inpatient Order (span 2 midnights) Reason for Inpatient Admission: Respiratory failure Diagnosis/Problems Diagnosis/Problems (1) Unresponsive Status: Acute (2) Acute respiratory failure Status: Acute (3) Shock (4) Acute kidney injury superimposed on chronic kidney disease (5) Acute on chronic respiratory failure with hypoxia and hypercapnia (6) Bradycardia Status: Acute (7) Chronic renal failure Status: Acute (8) Chronic anticoagulation Status: Acute (9) Chronic liver failure Status: Acute (10) Hyperkalemia Status: Acute (11) Ascites Status: Acute (12) Hyponatremia Status: Acute ROMINA SOLITARIO DO Apr 15, 2021 07:05
--- NOTE | 2021-04-15 07:05 | Diagnostic Imaging Report ---
INDICATION: Endotracheal tube check. TIME OF EXAM: 11:43 PM CORRELATION is made with prior chest earlier the same day. ET tube has tip above the tyra. The NG tube passes below the diaphragm. There are changes of median sternotomy. External pacer overlies the right hemithorax. There are some congestive changes in both lungs. There are some infiltrates or atelectasis in both bases. No effusion or pneumothorax is seen. IMPRESSION: Mild bibasilar infiltrates or atelectasis as well as central congestive changes. Dictated by: Dictated on workstation # [id number]
[2021-04-15] MEDS: LACTULOSE SYRUP 10GM/15ML (ENULOSE) 30ML UDC NG SCH ×3 (08:17→20:34)
[2021-04-15] MEDS: PANTOPRAZOLE 40 MG (PROTONIX) VIAL IV SCH (08:17)
[2021-04-15] MEDS: NOREPINEPHRINE 8 MG/250 ML 250 ML IV SCH ×3 (08:18→21:40)
[2021-04-15] MEDS: RT-ALBUTEROL SULF 2.5 MG/3 ML PRE-MIX VIAL INH PRN (10:38)
--- NOTE | 2021-04-15 10:41 | Tele-ICU Progress Note ---
Subjective Date Seen by a Provider: Apr 15, 2021 Time Seen by a Provider: 09:30 Subjective/Events-last exam This virtual visit was conducted using real time audio/video. Thank you for asking us to see this patient for respiratory insufficiency. Recent events: 61F with mechanical valve, CAD, NHL s/p chemo, CAPELLAN cirrhosis admitted with ?STEMI. 911 called for resp distress, cyanosis, altered mentation. EMS noted STEMI, sumaya, hypotensive. Due to instability, brought to nearest stand alone ER. She was unresponsive in ER, ETT. SBP as low as 60s, HR 40s. EKG with ST elevations in inferior leads with reciprocal changes (per ER note). Just prior to transfer to [facility] for emergent cath, K resulted at 7.2. Calcium gluconate and albuterol were given en route. Unclear if other treatments were given. On arr ival, levo initiated for hypotension. EKG with afib, RBBB, no evidence of ST derrangements. Code STEMI was cancelled. STAT bedside echo with severe LVH, hyperdynamic EF 70-75, flattening of IVS. External pacer D/Cd. PE: VSS on pressor. O2 sat 94% on 30%/+5 HEENT: No obvious masses, adenopathy or JVD. Chest: clear to auscultation. CV: RRR S1 S2 No murmur or added sounds. Abd: Non-tender. Distended. Bowel sounds Y. : Unremarkable. Trevino Y. FORM LAYER/psychiatric: Grossly intact. No obvious focal findings. Extremities: Generalized edema. Capillary refill < 3 seconds. Skin: unremarkable. Results: Elevated WCC 11.3, BUN 36, Creat 1.44, K 5.5. Decreased Na 129. B.35/37/88. CXR: pending. Available chart/ vitals / labs / images reviewed. Video assessment done using teleICU camera, rest of exam as per RN. A/P: Respiratory insufficiency: Continue present management with vent, BDs, Prec., Prop. Monitor for increasing oxygenation needs. Critical Care: critically ill patient. Cont. Levoquin, Levophed, heparin, SSI, PPI. KCl discontinued. Discussed with CHRYSTAL Maria. Asked RN to reach out to eICU if any questions or concerns later. Time spent with patient/coordination of care with other health professionals (mins): 27 Sepsis Event Evaluation Height, Weight, BMI Height: '" Weight: lbs. oz. kg; 21.00 BMI Method: Focused Exam Lactate Level 04/14/21 21:21: Lactic Acid Level 3.12*H 04/14/21 23:37: Lactic Acid Level 2.83*H 04/15/21 05:12: Lactic Acid Level 1.26 Exam Exam Patient acknowledged, consented, and participated in this virtual visit which was conducted using real time audio/video Vital Signs Date Time Temp Pulse Resp B/P (MAP) Pulse Ox O2 Delivery O2 Flow Rate FiO2 04/15/21 10:00 90 27 116/69 (85) 98 Mechanical Ventilator 21.00 04/15/21 09:00 103 28 116/75 (89) 94 Mechanical Ventilator 21.00 04/15/21 08:18 119/77 04/15/21 08:00 94 Mechanical Ventilator 21 04/15/21 08:00 104 11 119/74 (89) 93 Mechanical Ventilator 21.00 04/15/21 07:45 99 26 92 21 04/15/21 07:00 98 25 114/72 (86) 91 Mechanical Ventilator 21.00 04/15/21 07:00 88 04/15/21 06:00 85 20 114/69 (84) 93 Mechanical Ventilator 21.00 04/15/21 05:00 82 18 110/67 (81) 99 Mechanical Ventilator 21.00 04/15/21 04:00 98 Mechanical Ventilator 21 04/15/21 04:00 84 21 92/58 (69) 91 Mechanical Ventilator 21.00 04/15/21 04:00 37.0 04/15/21 03:00 81 21 104/69 (81) 99 Mechanical Ventilator 21.00 04/15/21 02:19 81 16 95 21 04/15/21 02:00 82 18 98/62 (74) 95 Mechanical Ventilator 21.00 04/15/21 02:00 36.1 04/15/21 01:01 85 04/15/21 01:00 85 22 91/60 (70) 100 Mechanical Ventilator 21.00 04/15/21 00:00 35.8 04/15/21 00:00 92 18 100/62 (75) 100 Mechanical Ventilator 21.00 04/15/21 00:00 98 Mechanical Ventilator 21 04/14/21 23:34 87 123/72 1/22/22 23:30 87 17 123/72 (89) 99 Mechanical Ventilator 21.00 04/14/21 23:29 35.2 80 97 30 04/14/21 23:22 82 116/77 04/14/21 23:00 85 22 105/70 (82) 99 Mechanical Ventilator 21.00 04/14/21 22:30 80 18 110/69 (83) 99 Mechanical Ventilator 21.00 04/14/21 22:20 79 16 100 30 04/14/21 22:15 78 15 113/79 (90) 100 Mechanical Ventilator 21.00 04/14/21 22:00 35.5 04/14/21 22:00 83 15 115/75 (88) 100 Mechanical Ventilator 30.00 04/14/21 22:00 98 Mechanical Ventilator 21 04/14/21 21:55 76 10 109/73 100 Mechanical Ventilator 16.00 30.00 04/14/21 21:23 79 124/82 04/14/21 20:40 66 55/21 04/14/21 19:55 72 16 100 70 04/14/21 19:50 100 Mechanical Ventilator 16.00 30 04/14/21 19:18 80 18 114/68 (83) 97 Mechanical Ventilator 04/14/21 18:45 35.2 80 12 72/58 (63) 85 NIV CPAP I & O 04/15/21 07:00 Intake Total 2000 ml Output Total 4550 ml Balance -2550 ml Height & Weight Height: '" Weight: lbs. oz. kg; 21.00 BMI Method: General Appearance: Other (PT IS INTUBATED AND SEDATED ON ARRIVAL WITH EXTERNAL PACER IN PLACE) HEENT: PERRL/EOMI, Normal ENT Inspection, Pharynx Normal Neck: Full Range of Motion Respiratory: Normal Breath Sounds (WITH VENTILATOR) Cardiovascular: Regular Rate, Rhythm, Systolic Murmur (5/6 MURMUR WITH MECHANICAL CLICK. ) Capillary Refill: Less Than 3 Seconds Extremity: No Pedal Edema Neurologic/Psychiatric: Other (SEDATED. ) Skin: Warm/Dry; No Petechia Lymphatic: No Adenopathy Results Lab Laboratory Tests 04/14/21 19:00 04/14/21 20:00 04/14/21 21:34 04/15/21 05:12 Assessment/Plan Assessment/Plan See free text. Critical Care: Ventilator Management JUDY TRUJILLO MD Apr 15, 2021 10:41
[2021-04-15] MEDS ORDERED: HEParin 1000 UNIT/ML (10ML VIAL) FOR BOLUS IV SCH (11:00)
[2021-04-15 11:06] LABS: TRIGLYCERIDES 77 MG/DL (<150); VLDL CHOLESTEROL 15 MG/DL (5-40)
[2021-04-15 11:11] LABS: CHOLESTEROL 89 MG/DL (< 200)
[2021-04-15 11:12] LABS: HDL CHOLESTEROL 20 MG/DL (40-60)
--- NOTE | 2021-04-15 11:21 | Cardiology Progress Note ---
Progress Note-Cardiology Events since last exam Date Seen by Provider: Apr 15, 2021 Time Seen by Provider: 11:15 Events since last exam I am following her due to heart failure among other cardiac issues. She remains in the intensive care unit intubated and sedated. She remains in shock on norepinephrine infusion. I spoke to 2 of her sons who served as her DPOA and they were at her bedside. She has always wanted to be a full code and they do not recall her ever expressing interest in DNR. They tell me that she has had 3 open heart surgeries in her life and at least 2 previous aortic valve replacements. They do not know of any history of coronary artery disease. She also has severe liver disease and has been getting paracentesis twice a week for quite some time. This all has occurred at [facility]. Because of her frequent paracentesis procedures, she intermittently holds her warfarin. She follows with Dr. Longo for her heart disease. Earlier today, the nurse attempted to do some weaning on the ventilator and the patient developed worsening hypoxia so she is now back on full support. Certain portions of this document may have been dictated utilizing voice recog nition technology. Inherent to this technology, typographical and grammatical errors may exist. As much as I am diligent to identify and correct these mistakes, some errors may remain in the document. Vitals Last set of Vitals Signs Vital Signs 04/15/21 04/15/21 04/15/21 04:00 10:00 10:38 Temp 37.0 Pulse 91 Resp 25 B/P (MAP) 116/69 (85) Pulse Ox 95 O2 Delivery Mechanical Ventilator O2 Flow Rate 21.00 FiO2 35 Labs Labs Laboratory Tests 04/14/21 19:00 04/14/21 20:00 04/14/21 21:34 04/15/21 05:12 Exam Vital Signs Vital Signs Date Time Temp Pulse Resp B/P (MAP) Pulse Ox O2 Delivery O2 Flow Rate FiO2 04/15/21 10:38 91 25 95 35 04/15/21 10:00 116/69 (85) Mechanical Ventilator 21.00 04/15/21 04:00 37.0 Physical Exam General: Intubated and sedated. Well nourished and appears older than her stated age. Eye: Conjunctivae are clear. There are no xanthelasma. HENT: Normocephalic. Atraumatic. Carotid pulsations 2/2 without bruits. Neck: Jugular venous pressure does not appear elevated. No thyromegaly appreciated. Respiratory: Symmetrical expansion bilaterally. Coarse breath sounds due to the ventilator. Cardiovascular: Normal rate. Regular rhythm. Metallic S2. 3/6 systolic eje ction murmur. No gallop. Point of maximal impulse is not appear displaced. Good pulses equal in all extremities. No edema. Gastrointestinal: Soft. Normal bowel sounds. Skin: Skin turgor is normal. There is no pallor. Musculoskeletal: No obvious deformities. Neurologic: Intubated and sedated. Psychiatric: Not obtainable due to clinical status. Labs Laboratory Tests Test 04/14/21 19:00 04/14/21 20:00 04/14/21 20:05 04/14/21 20:12 Range/Units White Blood Count 13.2 H 9.2 4.3-11.0 10^3/uL Red Blood Count 4.36 3.87 3.80-5.11 10^6/uL Hemoglobin 13.4 11.7 11.5-16.0 g/dL Hematocrit 44 37 35-52 % Mean Corpuscular Volume 101 H 95 80-99 fL Mean Corpuscular Hemoglobin 31 30 25-34 pg Mean Corpuscular Hemoglobin Concent 31 L 32 32-36 g/dL Red Cell Distribution Width 20.2 H 19.5 H 10.0-14.5 % Platelet Count 289 185 130-400 10^3/uL Mean Platelet Volume 10.2 10.4 9.0-12.2 fL Immature Granulocyte % (Auto) 1 1 % Neutrophils (%) (Auto) 74 89 H 42-75 % Lymphocytes (%) (Auto) 18 4 L 12-44 % Monocytes (%) (Auto) 6 5 0-12 % Eosinophils (%) (Auto) 1 1 0-10 % Basophils (%) (Auto) 0 0 0-10 % Neutrophils # (Auto) 9.8 H 8.2 H 1.8-7.8 10^3/uL Lymphocytes # (Auto) 2.3 0.3 L 1.0-4.0 10^3/uL Monocytes # (Auto) 0.8 0.5 0.0-1.0 10^3/uL Eosinophils # (Auto) 0.1 0.1 0.0-0.3 10^3/uL Basophils # (Auto) 0.0 0.0 0.0-0.1 10^3/uL Immature Granulocyte # (Auto) 0.2 H 0.1 0.0-0.1 10^3/uL Prothrombin Time 19.1 H 12.2-14.7 SEC INR Comment 1.6 H 0.8-1.4 Activated Partial Thromboplast Time 37 H 24-35 SEC Sodium Level 123 *L 128 L 135-145 MMOL/L Potassium Level 7.2 *H 6.1 H 3.6-5.0 MMOL/L Chloride Level 94 L 105 98-107 MMOL/L Carbon Dioxide Level 13 L 13 L 21-32 MMOL/L Anion Gap 16 H 10 5-14 MMOL/L Blood Urea Nitrogen 40 H 37 H 7-18 MG/DL Creatinine 1.65 H 1.65 H 0.60-1.30 MG/DL Estimat Glomerular Filtration Rate 36 36 BUN/Creatinine Ratio 24 22 Glucose Level 125 H 98 70-105 MG/DL Calcium Level 9.0 8.6 8.5-10.1 MG/DL Corrected Calcium 9.7 8.5-10.1 MG/DL Magnesium Level 2.6 H 1.6-2.4 MG/DL Total Bilirubin 1.1 H 0.1-1.0 MG/DL Aspartate Amino Transf (AST/SGOT) 106 H 5-34 U/L Alanine Aminotransferase (ALT/SGPT) 34 0-55 U/L Alkaline Phosphatase 241 H 40-136 U/L Troponin I < 0.30 0.142 H <0.028 NG/ML Pro-B-Type Natriuretic Peptide 5021.0 H <75.0 PG/ML Total Protein 5.9 L 6.4-8.2 GM/DL Albumin 3.1 L 3.2-4.5 GM/DL Percent Immature Platelet Fraction 3.7 0.0-7.6 % D-Dimer 2.40 H 0.00-0.49 UG/ML B-Type Natriuretic Peptide 2321.2 H <100.0 PG/ML Blood Gas Puncture Site LEFT RADIAL Blood Gas Patient Temperature 36.5 Arterial Blood pH 7.24 *L 7.37-7.43 Arterial Blood Partial Pressure CO2 41 35-45 MMHG Arterial Blood Partial Pressure O2 53 L 79-93 MMHG Arterial Blood HCO3 17 *L 23-27 MMOL/L Arterial Blood Total CO2 18.4 L 21.0-31.0 MMOL/L Arterial Blood Oxygen Saturation 74 L 94-100 % Arterial Blood Base Excess -9.2 L -2.5-2.5 MMOL/L Joshua Test YES-POS Blood Gas Ventilator Setting YES Blood Gas Inspired Oxygen 30% Influenza Type A (RT-PCR) Not Detected Not Detecte Influenza Type B (RT-PCR) Not Detected Not Detecte SARS-CoV-2 RNA (RT-PCR) Not Detected Not Detecte Test 04/14/21 20:38 04/14/21 21:21 04/14/21 21:34 04/14/21 23:37 Range/Units Urine Color YELLOW Urine Clarity CLEAR Urine pH 6.0 5-9 Urine Specific [place] 1.010 L 1.016-1.022 Urine Protein TRACE H NEGATIVE Urine Glucose (UA) 1+ H NEGATIVE Urine Ketones NEGATIVE NEGATIVE Urine Nitrite NEGATIVE NEGATIVE Urine Bilirubin NEGATIVE NEGATIVE Urine Urobilinogen 0.2 < = 1.0 MG/DL Urine Leukocyte Esterase NEGATIVE NEGATIVE Urine RBC (Auto) TRACE-I H NEGATIVE Urine RBC NONE /HPF Urine WBC RARE /HPF Urine Squamous Epithelial Cells NONE /HPF Urine Crystals NONE /LPF Urine Bacteria FEW H /HPF Urine Casts PRESENT /LPF Urine Hyaline Casts 0-2 H /LPF Urine Mucus NEGATIVE /LPF Urine Yeast LARGE H /HPF Urine Culture Indicated YES Urine Opiates Screen NEGATIVE NEGATIVE Urine Oxycodone Screen NEGATIVE NEGATIVE Urine Methadone Screen NEGATIVE NEGATIVE Urine Propoxyphene Screen NEGATIVE NEGATIVE Urine Barbiturates Screen NEGATIVE NEGATIVE Ur Tricyclic Antidepressants Screen NEGATIVE NEGATIVE Urine Phencyclidine Screen NEGATIVE NEGATIVE Urine Amphetamines Screen NEGATIVE NEGATIVE Urine Methamphetamines Screen NEGATIVE NEGATIVE Urine Benzodiazepines Screen NEGATIVE NEGATIVE Urine Cocaine Screen NEGATIVE NEGATIVE Urine Cannabinoids Screen NEGATIVE NEGATIVE Lactic Acid Level 3.12 *H 2.83 *H 0.50-2.00 MMOL/L Sodium Level 129 L 135-145 MMOL/L Potassium Level 5.9 H 3.6-5.0 MMOL/L Chloride Level 104 98-107 MMOL/L Carbon Dioxide Level 14 L 21-32 MMOL/L Anion Gap 11 5-14 MMOL/L Blood Urea Nitrogen 37 H 7-18 MG/DL Creatinine 1.50 H 0.60-1.30 MG/DL Estimat Glomerular Filtration Rate 40 BUN/Creatinine Ratio 25 Glucose Level 64 L 70-105 MG/DL Calcium Level 8.6 8.5-10.1 MG/DL Corrected Calcium 9.4 8.5-10.1 MG/DL Total Bilirubin 1.2 H 0.1-1.0 MG/DL Aspartate Amino Transf (AST/SGOT) 106 H 5-34 U/L Alanine Aminotransferase (ALT/SGPT) 37 0-55 U/L Alkaline Phosphatase 236 H 40-136 U/L Ammonia 35 H 11-32 UMOL/L Lactate Dehydrogenase 349 H 125-220 U/L C-Reactive Protein High Sensitivity 4.89 H 0.00-0.50 MG/DL Total Protein 5.7 L 6.4-8.2 GM/DL Albumin 3.0 L 3.2-4.5 GM/DL Triglycerides Level 82 <150 MG/DL Procalcitonin 0.11 H <0.10 NG/ML Free Thyroxine 0.74 0.70-1.48 NG/DL TSH Crossnore Testing 22.21 H 0.35-4.94 UIU/ML Digoxin Level < 0.30 L 0.80-2.00 NG/ML Acetaminophen Level 14 10-30 UG/ML Serum Alcohol < 10 <10 MG/DL Test 04/15/21 00:58 04/15/21 05:12 04/15/21 05:14 Range/Units Glucometer 69 L 70-110 MG/DL White Blood Count 11.3 H 4.3-11.0 10^3/uL Red Blood Count 4.28 3.80-5.11 10^6/uL Hemoglobin 13.0 11.5-16.0 g/dL Hematocrit 40 35-52 % Mean Corpuscular Volume 92 80-99 fL Mean Corpuscular Hemoglobin 30 25-34 pg Mean Corpuscular Hemoglobin Concent 33 32-36 g/dL Red Cell Distribution Width 19.3 H 10.0-14.5 % Platelet Count 279 130-400 10^3/uL Mean Platelet Volume 9.1 9.0-12.2 fL Immature Granulocyte % (Auto) 1 % Neutrophils (%) (Auto) 89 H 42-75 % Lymphocytes (%) (Auto) 5 L 12-44 % Monocytes (%) (Auto) 5 0-12 % Eosinophils (%) (Auto) 0 0-10 % Basophils (%) (Auto) 0 0-10 % Neutrophils # (Auto) 10.1 H 1.8-7.8 10^3/uL Lymphocytes # (Auto) 0.6 L 1.0-4.0 10^3/uL Monocytes # (Auto) 0.6 0.0-1.0 10^3/uL Eosinophils # (Auto) 0.0 0.0-0.3 10^3/uL Basophils # (Auto) 0.0 0.0-0.1 10^3/uL Immature Granulocyte # (Auto) 0.1 0.0-0.1 10^3/uL Sodium Level 129 L 135-145 MMOL/L Potassium Level 5.5 H 3.6-5.0 MMOL/L Chloride Level 103 98-107 MMOL/L Carbon Dioxide Level 16 L 21-32 MMOL/L Anion Gap 10 5-14 MMOL/L Blood Urea Nitrogen 36 H 7-18 MG/DL Creatinine 1.44 H 0.60-1.30 MG/DL Estimat Glomerular Filtration Rate 42 BUN/Creatinine Ratio 25 Glucose Level 83 70-105 MG/DL Lactic Acid Level 1.26 0.50-2.00 MMOL/L Calcium Level 8.3 L 8.5-10.1 MG/DL Corrected Calcium 9.3 8.5-10.1 MG/DL Phosphorus Level 4.0 2.3-4.7 MG/DL Magnesium Level 2.0 1.6-2.4 MG/DL Total Bilirubin 1.1 H 0.1-1.0 MG/DL Aspartate Amino Transf (AST/SGOT) 101 H 5-34 U/L Alanine Aminotransferase (ALT/SGPT) 38 0-55 U/L Alkaline Phosphatase 224 H 40-136 U/L Total Protein 5.4 L 6.4-8.2 GM/DL Albumin 2.8 L 3.2-4.5 GM/DL Triglycerides Level 77 <150 MG/DL Cholesterol Level 89 < 200 MG/DL LDL Cholesterol Direct 53 1-129 MG/DL VLDL Cholesterol 15 5-40 MG/DL HDL Cholesterol 20 L 40-60 MG/DL Blood Gas Puncture Site NOT INDICATED Blood Gas Patient Temperature 37.0 Arterial Blood pH 7.35 L 7.37-7.43 Arterial Blood Partial Pressure CO2 37 35-45 MMHG Arterial Blood Partial Pressure O2 88 79-93 MMHG Arterial Blood HCO3 20 L 23-27 MMOL/L Arterial Blood Total CO2 21.3 21.0-31.0 MMOL/L Arterial Blood Oxygen Saturation 96 94-100 % Arterial Blood Base Excess -4.4 L -2.5-2.5 MMOL/L Joshua Test YES-POS Blood Gas Ventilator Setting YES Blood Gas Inspired Oxygen 21% Diagnosis/Problems Diagnosis/Problems (1) Acute on chronic heart failure with preserved ejection fraction (HFpEF) Assessment & Plan: She probably has some degree of acute on chronic pulmonary congestion. She also has superimposed severe pulmonary hypertension. She did receive intravenous fluid resuscitation. I will hold off on giving her any diuretic at this time due to her ongoing shock. (2) Shock Assessment & Plan: Exact etiology unclear. She has multiple metabolic derangements. However, her ejection fraction is normal and she has a mechanical aortic valve prosthesis that appears to be functioning normally. I suspect there is some other etiology of shock other than cardiogenic shock, possibly septic shock. (3) Complete heart block Assessment & Plan: She appears as though she may have an ectopic atrial rhythm versus underlying atrial fibrillation and then developed complete heart block that required temporary external pacing. This may have been related to the severe hyperkalemia that has now started to improve with treatment. She is no longer in heart block. (4) Pulmonary hypertension Assessment & Plan: Her echocardiogram from 04/14 shows severe pulmonary hypertension that is of unknown etiology. I would suspect a pulmonary embolism would be unlikely since she has been taking warfarin. I suspect this may be chronic. I have requested a copy of her most recent echocardiogram from her regular solar project manager at the outside facility. (5) History of aortic valve replacement with metallic valve Assessment & Plan: Her echocardiogram echocardiogram from 04/14 showed what appears to be a probable [place]i aortic valve that appears to be functioning normally without significant stenosis or regurgitation. I will start her on intravenous heparin for the short-term. Ultimately, she will need to get back on her warfarin. (6) Acute on chronic respiratory failure with hypoxia and hypercapnia Assessment & Plan: Exact etiology unclear. I suspect this is multifactorial but not with a significant amount of heart failure. This is being managed by the hospitalist and cleaner laboratory equipment. (7) Acute kidney injury superimposed on chronic kidney disease Assessment & Plan: This may have caused or at least contributed to the h yperkalemia. Her most recent baseline creatinine appears to be somewhere around 1.2. (8) Hyperkalemia Status: Acute Assessment & Plan: As above, this may at least be partially due to the acute kidney injury on chronic kidney disease. Her potassium level is improving. Her sons tell me that she had been taking potassium at home and also has been eating potassium rich foods because she has been having problems with low potassium l evels. I would question whether or not she may have inadvertently taken too much potassium supplementation. (9) Unresponsive Status: Acute Assessment & Plan: Etiology unclear. Her urine toxicology screen was unremarkable and her head CT did not show any abnormalities to explain unresponsiveness. When I was in the room, she did appear to be moving all extremities but unclear whether or not there was any purposeful activity. DUTCH MORILLO JR, MD Apr 15, 2021 11:21
--- NOTE | 2021-04-15 11:22 | Diagnostic Imaging Report ---
INDICATION: Central venous catheter evaluation Portable AP view of the chest was obtained with comparison made to study of one day earlier. There has been placement of a left central venous catheter with tip projecting over the upper aspect of the right atrium. This is somewhat obscured by monitoring lead. Defibrillator pad is seen on the right. Otherwise, there is continued cardiomegaly and pulmonary venous congestion without pneumothorax or other significant change. IMPRESSION: Findings suggest probable congestive heart failure without evidence of complication related to left central venous catheter placement. Dictated by: Dictated on workstation # [id number]
[2021-04-15] MEDS: HEParin DRIP 25000 UNIT/500ML 500 ML IV SCH (11:57)
--- NOTE | 2021-04-15 12:19 | CONSULTATION REPORT ---
DATE OF SERVICE: ATTENDING PRIMARY CARE PHYSICIAN: Dr. Garfield Gray. ADMITTING PHYSICIAN: Dr. Solitario. HISTORY OF PRESENT ILLNESS: The patient is a 61-year-old female with a history of multiple medical comorbidities. She has a history of coronary artery disease, valvular heart disease, nonalcoholic steatohepatitis as well as a history of non-Hodgkin's lymphoma. She was brought in by EMS for respiratory distress, cyanosis and altered mentation. She was found to have ST segment elevation, bradycardic and was also hypotensive and was resuscitated. On arrival to [facility], Levophed was started for her significant hypotension and she was also intubated. A bedside echocardiogram was done, which showed a hyperdynamic ejection fraction of 70%. The patient is requiring increased Levophed to maintain mean arterial pressure and has poor peripheral venous circulation and will require central venous catheter. PAST MEDICAL HISTORY: Coronary artery disease, valvular heart disease, nonalcoholic steatohepatitis, history of non-Hodgkin's lymphoma, renal failure. PAST SURGICAL HISTORY: Open aortic valve replacement and hysterectomy. ALLERGIES: NO KNOWN DRUG ALLERGIES. MEDICATIONS: Baclofen, Cephalexin, Coumadin. SOCIAL HISTORY: Negative smoke, negative alcohol. FAMILY HISTORY: Noncontributory. VITAL SIGNS: Temperature 37.0, blood pressure 116/69, pulse 91, respirations 25, 35% FiO2. REVIEW OF SYSTEMS: Well-nourished female on vent and sedated. She appears to be comfortable. She does not have any abdominal distention and does respond to touch. No known history of nausea or vomiting, no diarrhea or constipation. No known fever, chills or any recent inadvertent weight loss. PHYSICAL EXAMINATION: CHEST: Scattered wheezes bilaterally. HEART: Regular with a systolic ejection murmur. EXTREMITIES: No lower extremity edema, negative Homans sign. HEENT: No scleral icterus. NECK: No cervical lymphadenopathy. ABDOMEN: Soft, nontender, nondistended. SKIN: Warm, dry. ASSESSMENT AND PLAN: A 61-year-old female in cardiac shock of unknown etiology. She is requiring increasing doses of vasopressors and will require a central venous catheter. Job ID: [id number] DocumentID: [id number] Dictated Date: 04/15/2021 11:23:51 Sales Service Technician Date: 04/15/2021 12:18:21 Dictated By: AFSHIN CARMICHAEL MD
--- NOTE | 2021-04-15 12:54 | OPERATIVE REPORT ---
DATE OF SERVICE: 04/15/2021 ATTENDING PRIMARY CARE PHYSICIAN: Dr. Garfield Gray. ADMITTING PHYSICIAN: Dr. Solitario. PREOPERATIVE DIAGNOSIS: Cardiogenic shock. POSTOPERATIVE DIAGNOSIS: Cardiogenic shock. PROCEDURE: Placement of left subclavian central venous catheter. SURGEON: Afshin Riggins MD. ANESTHESIA: Local. ESTIMATED BLOOD LOSS: Minimal. DISPOSITION: The patient tolerated the procedure well. INDICATIONS: The patient is a 61-year-old female, who was found to be unresponsive and cyanotic. She does have multiple medical problems including valvular heart disease, coronary artery disease, nonalcoholic steatohepatitis as well as history of non-Hodgkin lymphoma. She continued to be hypotensive and upon admission was intubated and started on vasopressors with Levophed and is requiring increased doses and will require a central venous catheter. DESCRIPTION OF PROCEDURE: Chest and neck were prepped and draped in standard surgical fashion. A 1% lidocaine was used to anesthetize the left subclavian region. The left subclavian vein was then cannulated with drawing of venous blood. The guidewire was then inserted without any resistance. The cannulating needle removed and a skin incision made using 11 blade. A tract was then created using a venous dilator. Through this opening, a triple lumen central venous catheter was placed over the guidewire using the Seldinger technique. The guidewire was removed. All three ports elba venous blood and saline pushed in without any resistance. The catheter was then sutured to the skin using interrupted 3-0 silk sutures. Catheter was then cleaned and covered with Op-Site. The patient tolerated the procedure well. We will get a post-procedure chest x-ray. Job ID: [id number] DocumentID: [id number] Dictated Date: 04/15/2021 11:27:01 Certified Caregiver Date: 04/15/2021 12:52:53 Dictated By: AFSHIN RIGGINS MD
[2021-04-16] VITALS (65 sets, daily range): BP systolic 83–124; BP diastolic 52–82
[2021-04-16] MEDS: fentaNYL DRIP PRE-MIX 250 ML IV SCH ×3 (02:58→17:39)
[2021-04-16] MEDS: DexMEDEtomidine 250 ML DRIP 250 ML IV SCH (02:58)
[2021-04-16] MEDS: SODIUM BICARBONATE 8.4% VIAL 100 MEQ in 1/2 NS IV SOLUTION 1,000 ML IV SCH (04:17)
[2021-04-16] MEDS: NS IV 1000 ML 1,000 ML IV SCH (05:27)
[2021-04-16 05:46] LABS: ABG BASE EXCESS -0.2 MMOL/L (-2.5-2.5); ABG OXYGEN SATURATION 98 % (94-100); ABG PCO2 34 MMHG (35-45); ABG PH 7.45 (7.37-7.43); ABG PO2 86 MMHG (79-93); ABG TCO2 24.4 MMOL/L (21.0-31.0); BASOPHILS % (AUTO) 1 % (0-10); EOSINOPHILS # (AUTO) 0.2 10^3/uL (0.0-0.3); EOSINOPHILS % (AUTO) 2 % (0-10); HEMATOCRIT 36 % (35-52); HEMOGLOBIN 12.3 g/dL (11.5-16.0); LYMPHOCYTES # (AUTO) 1.1 10^3/uL (1.0-4.0); LYMPHOCYTES % (AUTO) 13 % (12-44); MEAN CORPUSCULAR HEMOGLOBIN 31 pg (25-34); MEAN CORPUSCULAR HGB CONC 34 g/dL (32-36); MEAN CORPUSCULAR VOLUME 91 fL (80-99); MEAN PLATELET VOLUME 9.2 fL (9.0-12.2); MONOCYTES # (AUTO) 0.7 10^3/uL (0.0-1.0); MONOCYTES % (AUTO) 8 % (0-12); NEUTROPHILS # (AUTO) 6.6 10^3/uL (1.8-7.8); NEUTROPHILS % (AUTO) 76 % (42-75); PLATELET COUNT 214 10^3/uL (130-400); WHITE BLOOD COUNT 8.7 10^3/uL (4.3-11.0)
[2021-04-16 05:50] LABS: ALLENS TEST YES-POS; INSPIRED O2 30%; PATIENT TEMP 36.6; VENTILATOR YES
[2021-04-16 06:12] LABS: ALBUMIN 2.5 GM/DL (3.2-4.5); BILIRUBIN,TOTAL 1.1 MG/DL (0.1-1.0); CALCIUM 7.6 MG/DL (8.5-10.1); CREATININE SERUM 1.17 MG/DL (0.60-1.30); MAGNESIUM 1.5 MG/DL (1.6-2.4); PHOSPHORUS 2.9 MG/DL (2.3-4.7); TOTAL PROTEIN 4.8 GM/DL (6.4-8.2)
[2021-04-16] MEDS: MAGNESIUM 1 GM/100 ML IVPB 100 ML IV SCH ×2 (06:25→06:41)
[2021-04-16] MEDS: KCL 20 MEQ TAB (K-DUR) PO SCH (06:25)
--- NOTE | 2021-04-16 06:53 | Occ Therapy Progress Note ---
Therapy Progress Note OT orders received. Pt currently intubated. OT to monitor pt's status and will initiate treatment when pt is medically stable and able to actively participate in skilled therapy. FRANCISCO JAVIER REGALADO Apr 16, 2021 06:53
--- NOTE | 2021-04-16 07:16 | Physical Therapy Progress Note ---
Therapy Progress Note Patient currently intubated and sedated. PT will monitor patient status and initiate treatment when patient is able to actively participate with skilled therapy. HERMAN KENNY PT Apr 16, 2021 07:16
[2021-04-16] MEDS: PANTOPRAZOLE 40 MG (PROTONIX) VIAL IV SCH (08:01)
[2021-04-16] MEDS: LACTULOSE SYRUP 10GM/15ML (ENULOSE) 30ML UDC NG SCH ×3 (08:01→20:31)
[2021-04-16] MEDS: NOREPINEPHRINE 8 MG/250 ML 250 ML IV SCH ×2 (08:02→17:40)
--- NOTE | 2021-04-16 08:07 | Diagnostic Imaging Report ---
INDICATION: Pneumonia. Comparison made with prior examination from 04/15/2021. FINDINGS: There is cardiomegaly. There is some venous congestion. Some patchy bibasilar atelectasis and/or pneumonitis. Lines and tubes appear to be in satisfactory position. There has been a previous median sternotomy and heart valve replacement. IMPRESSION: Cardiomegaly and mild venous congestion with some patchy bibasal pulmonary infiltrates. Dictated by: Dictated on workstation # [id number]
--- NOTE | 2021-04-16 09:57 | Cardiology Progress Note ---
Progress Note-Cardiology Events since last exam Date Seen by Provider: Apr 16, 2021 Time Seen by Provider: 09:56 Events since last exam I am following her due to heart failure and mechanical aortic valve replacement. She remains in the intensive care unit intubated and sedated. She has been starting to wake up when nursing reduces the sedation. She has been having some oozing from the central line insertion site. She is on norepinephrine due to persistent shock. No family was at her bedside when I saw the patient this morning. I was not able to obtain any history from the patient due to her sedation. Certain portions of this document may have been dictated utilizing voice recognition technology. Inherent to this technology, typographical and grammatical errors may exist. As much as I am diligent to identify and correct these mistakes, some errors may remain in the document. Vitals Last set of Vitals Signs Vital Signs 04/16/21 04/16/21 04/16/21 15:00 17:40 18:30 Pulse 123 Resp 22 B/P (MAP) 109/82 Pulse Ox 94 O2 Flow Rate 30.00 FiO2 30 Labs Labs Laboratory Tests 04/16/21 05:30 Exam Vital Signs Vital Signs Date Time Temp Pulse Resp B/P (MAP) Pulse Ox O2 Delivery O2 Flow Rate FiO2 04/16/21 18:30 123 22 94 30 04/16/21 17:40 109/82 04/16/21 16:00 Mechanical Ventilator 04/16/21 16:00 36.9 04/16/21 15:00 30.00 Physical Exam General: Intubated and sedated. Well nourished and appears older than her stated age. Eye: Conjunctivae are clear. There are no xanthelasma. HENT: Normocephalic. Atraumatic. Carotid pulsations 2/2 without bruits. Neck: Jugular venous pressure does not appear elevated. No thyromegaly appreciated. Respiratory: Symmetrical expansion bilaterally. Coarse breath sounds due to the ventilator. Cardiovascular: Normal rate. Regular rhythm. Metallic S2. 3/6 systolic ejection murmur. No gallop. Point of maximal impulse is not appear displaced. Good pulses equal in all extremities. No edema. Gastrointestinal: Soft. Normal bowel sounds. Skin: Skin turgor is normal. There is no pallor. Musculoskeletal: No obvious deformities. Neurologic: Intubated and sedated. Psychiatric: Not obtainable due to clinical status. Labs Laboratory Tests Test 04/15/21 23:05 04/16/21 05:12 04/16/21 05:30 04/16/21 12:24 Range/Units Activated Partial Thromboplast Time 177 *H 94 H 117 *H 24-35 SEC White Blood Count 8.7 4.3-11.0 10^3/uL Red Blood Count 3.95 3.80-5.11 10^6/uL Hemoglobin 12.3 11.5-16.0 g/dL Hematocrit 36 35-52 % Mean Corpuscular Volume 91 80-99 fL Mean Corpuscular Hemoglobin 31 25-34 pg Mean Corpuscular Hemoglobin Concent 34 32-36 g/dL Red Cell Distribution Width 19.5 H 10.0-14.5 % Platelet Count 214 130-400 10^3/uL Mean Platelet Volume 9.2 9.0-12.2 fL Immature Granulocyte % (Auto) 1 % Neutrophils (%) (Auto) 76 H 42-75 % Lymphocytes (%) (Auto) 13 12-44 % Monocytes (%) (Auto) 8 0-12 % Eosinophils (%) (Auto) 2 0-10 % Basophils (%) (Auto) 1 0-10 % Neutrophils # (Auto) 6.6 1.8-7.8 10^3/uL Lymphocytes # (Auto) 1.1 1.0-4.0 10^3/uL Monocytes # (Auto) 0.7 0.0-1.0 10^3/uL Eosinophils # (Auto) 0.2 0.0-0.3 10^3/uL Basophils # (Auto) 0.0 0.0-0.1 10^3/uL Immature Granulocyte # (Auto) 0.1 0.0-0.1 10^3/uL Blood Gas Puncture Site RT RAD Blood Gas Patient Temperature 36.6 Arterial Blood pH 7.45 H 7.37-7.43 Arterial Blood Partial Pressure CO2 34 L 35-45 MMHG Arterial Blood Partial Pressure O2 86 79-93 MMHG Arterial Blood HCO3 23 23-27 MMOL/L Arterial Blood Total CO2 24.4 21.0-31.0 MMOL/L Arterial Blood Oxygen Saturation 98 94-100 % Arterial Blood Base Excess -0.2 -2.5-2.5 MMOL/L Joshua Test YES-POS Blood Gas Ventilator Setting YES Blood Gas Inspired Oxygen 30% Sodium Level 135 135-145 MMOL/L Potassium Level 4.0 3.6-5.0 MMOL/L Chloride Level 104 98-107 MMOL/L Carbon Dioxide Level 21 21-32 MMOL/L Anion Gap 10 5-14 MMOL/L Blood Urea Nitrogen 24 H 7-18 MG/DL Creatinine 1.17 0.60-1.30 MG/DL Estimat Glomerular Filtration Rate 54 BUN/Creatinine Ratio 21 Glucose Level 74 70-105 MG/DL Calcium Level 7.6 L 8.5-10.1 MG/DL Corrected Calcium 8.8 8.5-10.1 MG/DL Phosphorus Level 2.9 2.3-4.7 MG/DL Magnesium Level 1.5 L 1.6-2.4 MG/DL Total Bilirubin 1.1 H 0.1-1.0 MG/DL Aspartate Amino Transf (AST/SGOT) 74 H 5-34 U/L Alanine Aminotransferase (ALT/SGPT) 37 0-55 U/L Alkaline Phosphatase 200 H 40-136 U/L Total Protein 4.8 L 6.4-8.2 GM/DL Albumin 2.5 L 3.2-4.5 GM/DL Triglycerides Level 80 <150 MG/DL Test 04/16/21 12:31 04/16/21 17:46 04/16/21 17:47 Range/Units Glucometer 83 80 70-110 MG/DL Activated Partial Thromboplast Time 106 H 24-35 SEC Diagnosis/Problems Diagnosis/Problems (1) Acute on chronic heart failure with preserved ejection fraction (HFpEF) Assessment & Plan: She probably has some degree of acute on chronic pulmonary congestion. She also has superimposed severe pulmonary hypertension. She did receive intravenous fluid resuscitation. I will hold off on giving her any diuretic at this time due to her ongoing shock. (2) Shock Assessment & Plan: Exact etiology unclear. She has multiple metabolic derangements and I suspect superimposed sepsis. However, her ejection fraction is normal and she has a mechanical aortic valve prosthesis that appears to be functioning normally which makes cardiogenic shock unlikely. (3) Complete heart block Assessment & Plan: She appears as though she may have an ectopic atrial rhythm versus underlying atrial fibrillation and then developed complete heart block that required temporary external pacing prior to admission. This may have been related to the severe hyperkalemia that has now improved with treatment. She is no longer in heart block. (4) Pulmonary hypertension Assessment & Plan: Her echocardiogram from 04/14 shows severe pulmonary hypert ension that is of unknown etiology. I would suspect a pulmonary embolism would be unlikely since she has been taking warfarin. I suspect this may be chronic. 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 (5) History of aortic valve replacement with metallic valve Assessment & Plan: Her echocardiogram echocardiogram from 04/14 showed what appears to be a probable [employer] [facility]i aortic valve that appears to be functioning normally without significant stenosis or regurgitation. I have her on intravenous heparin due to the mechanical aortic valve. Ultimately, she will need to get back on her warfarin. (6) Acute on chronic respiratory failure with hypoxia and hypercapnia Assessment & Plan: Exact etiology unclear. I suspect this is multifactorial but not with a significant amount of heart failure. This is being managed by the hospitalist and wellness director. (7) Acute kidney injury superimposed on chronic kidney disease Assessment & Plan: This may have caused or at least contributed to the hyperk alemia. Her most recent baseline creatinine appears to be somewhere around 1.2. This is improving. (8) Hyperkalemia Status: Acute Assessment & Plan: This has improved. As above, this may at least be partially due to the acute kidney injury on chronic kidney disease. Her potassium level is improving. Her sons tell me that she had been taking potassium at home and also has been eating potassium rich foods because she has been having problems with low potassium levels. I would question whether or not she may have inadvertently taken too much potassium supplementation. (9) Unresponsive Status: Acute Assessment & Plan: Etiology unclear. Her urine toxicology screen was unremarkable and her head CT did not show any abnormalities to explain unresponsiveness. She has been moving all 4 extremities when the nurse lightens the sedation. Another attempt will be made tomorrow. DUTCH MORILLO JR, MD Apr 16, 2021 09:57
--- NOTE | 2021-04-16 10:21 | Tele-ICU Progress Note ---
Subjective Date Seen by a Provider: Apr 16, 2021 Time Seen by a Provider: 10:21 Sepsis Event Evaluation Height, Weight, BMI Height: '" Weight: lbs. oz. kg; 21.00 BMI Method: Focused Exam Lactate Level 04/14/21 21:21: Lactic Acid Level 3.12*H 04/14/21 23:37: Lactic Acid Level 2.83*H 04/15/21 05:12: Lactic Acid Level 1.26 Exam Exam Patient acknowledged, consented, and participated in this virtual visit which was conducted using real time audio/video Vital Signs Date Time Temp Pulse Resp B/P (MAP) Pulse Ox O2 Delivery O2 Flow Rate FiO2 04/16/21 09:30 96 30 103/68 (79) 95 04/16/21 09:15 96 23 105/66 (77) 95 04/16/21 09:00 98 20 103/65 (78) 95 Mechanical Ventilator 30.00 04/16/21 08:45 98 20 106/66 (76) 95 04/16/21 08:30 100 21 105/71 (81) 94 04/16/21 08:15 98 21 108/64 (79) 95 04/16/21 08:02 96 103/62 04/16/21 08:00 95 Mechanical Ventilator 30 04/16/21 08:00 98 20 103/62 (76) 95 Mechanical Ventilator 30.00 04/16/21 08:00 98 99 103/62 (76) Mechanical Ventilator 30.00 04/16/21 07:45 103 63 100/59 (73) 04/16/21 07:30 100 49 96/59 (71) 95 04/16/21 07:30 37.1 04/16/21 07:15 111 18 93/57 (71) 95 04/16/21 07:13 123 27 93 30 04/16/21 07:00 114 04/16/21 07:00 113 27 106/60 (73) 95 Mechanical Ventilator 30.00 04/16/21 06:00 109 16 106/61 (76) 95 Mechanical Ventilator 30.00 04/16/21 05:26 36.6 04/16/21 05:00 100 16 114/64 (81) 95 Mechanical Ventilator 30.00 04/16/21 04:00 100 16 107/61 (76) 95 Mechanical Ventilator 30.00 04/16/21 04:00 96 Mechanical Ventilator 30 04/16/21 03:00 100 16 97/56 (70) 95 Mechanical Ventilator 30.00 04/16/21 02:24 99 25 94 30 04/16/21 02:00 100 16 105/62 (76) 94 Mechanical Ventilator 30.00 04/16/21 01:00 100 16 103/62 (76) 94 Mechanical Ventilator 30.00 04/16/21 01:00 100 04/16/21 00:34 Mechanical Ventilator 30.00 04/16/21 00:00 100 16 100/60 (73) 94 Mechanical Ventilator 21.00 04/16/21 00:00 98 Mechanical Ventilator 30 04/15/21 23:39 36.4 04/15/21 23:00 97 16 104/60 (75) 94 Mechanical Ventilator 21.00 04/15/21 22:00 98 16 104/64 (77) 94 Mechanical Ventilator 21.00 04/15/21 21:45 98 25 94 30 04/15/21 21:40 98 117/66 04/15/21 21:00 98 16 109/61 (77) 94 Mechanical Ventilator 21.00 04/15/21 20:36 98 114/65 04/15/21 20:00 37.4 04/15/21 20:00 98 Mechanical Ventilator 30 04/15/21 20:00 98 16 113/65 (81) 94 Mechanical Ventilator 21.00 04/15/21 19:00 97 16 112/61 (78) 94 Mechanical Ventilator 21.00 04/15/21 19:00 97 04/15/21 18:08 96 24 94 30 04/15/21 18:00 96 24 110/61 (77) 95 Mechanical Ventilator 21.00 04/15/21 17:00 96 32 110/60 (77) 94 Mechanical Ventilator 21.00 04/15/21 16:00 95 Mechanical Ventilator 30 04/15/21 16:00 95 23 109/61 (77) 95 Mechanical Ventilator 21.00 04/15/21 15:00 96 23 108/59 (75) 94 Mechanical Ventilator 21.00 04/15/21 14:40 94 24 94 30 04/15/21 14:14 111/59 04/15/21 14:00 95 25 111/59 (76) 94 Mechanical Ventilator 21.00 04/15/21 13:00 96 22 109/60 (76) 94 Mechanical Ventilator 21.00 04/15/21 12:39 98 04/15/21 12:00 94 Mechanical Ventilator 30 04/15/21 12:00 98 27 107/59 (75) 95 Mechanical Ventilator 21.00 04/15/21 11:23 37.3 109 21 106/63 (77) 95 Mechanical Ventilator 21.00 04/15/21 10:38 91 25 95 35 I & O 04/16/21 06:59 Intake Total 4100 ml Output Total 3750 ml Balance 350 ml Height & Weight Height: '" Weight: lbs. oz. kg; 21.00 BMI Method: General Appearance: No Apparent Distress, Chronically ill HEENT: PERRL/EOMI, Normal ENT Inspection, Pharynx Normal Neck: Normal Inspection Respiratory: Chest Non Tender, Lungs Clear, Normal Breath Sounds, Decreased Breath Sounds Cardiovascular: Regular Rate, Rhythm, No Gallop, No JVD, Normal Peripheral Pulses, Systolic Murmur Capillary Refill: Less Than 3 Seconds Extremity: Normal Capillary Refill, Normal Inspection, Normal Range of Motion, Non Tender, No Calf Tenderness, Pedal Edema Neurologic/Psychiatric: Alert, Oriented x3, No Motor/Sensory Deficits, Normal Mood/Affect Skin: Normal Color, Warm/Dry Lymphatic: No Adenopathy Results Lab Laboratory Tests 04/14/21 19:00 04/14/21 20:00 04/14/21 21:34 04/15/21 05:12 04/16/21 05:30 Assessment/Plan Assessment/Plan (Tele-ICU Physician , Progress Note ) Available chart/ vitals / labs / Images reviewed Video assessment done using teleICU camera, rest of exam as per RN Discussed with RN , EXAM PER RN Events overnight : Afebrile FiO2 - 30 I/O = neg 5400 Drips: bicarb , heparin , NS Pressors: LEVO hemodynamically stable Sedation gtt: ( RASS -2 ) prx 0.7, prop , fent 175 VENT SETTINGS and ABG reviewed Not candidate for SBT today REVIEWED Cardiovascular Stability / Sedation Score / FI02/PEEP / ABG / CXR Consultants: shanel Hospital course: A/P Acute resp failure - in vent 30% - will assess for liberation tomorrow -decrease sedation today A/Ch CHF - EF 70 % - as per cards - will stop IBF with improved Cr and negatibe 6 L urine output Shock - cards vs other - - weaning down LEVO - follow check cortisol AVR with netallin valve - on heparin GTT LEONORA- improved , will decrease bicarb gtt with goal to stop soon ID - on levofloxacin empiric 04/14 - cx neg AMS change - CTH neg -tox screen neg , ammonia WNL -follow closely with decreasing seation Lines : Scl LEFT (Central Line Necessity Reviewed) Trevino: + OG: Nutrition: TF to start 04/16 Analgesia: Anxiety/ delirium VTE Prophylaxis: hep gtt Stress Ulcer Prophylaxis: Glycemic Control: Plans in collaboration with bedside consultants and IM MDs. Discussed with RN to reach out if any questions or concerns A total of 33 minutes of critical care time was devoted to this patient today, required to treat and/or prevent further deterioration of critical care condition ( as above) . ROBBIE MILLER MD Apr 16, 2021 10:21
--- NOTE | 2021-04-16 12:42 | Progress Note - Hospitalist ---
JA[facility] AR[facility] 04/16/21 1242: Subjective HPI/CC On Admission Chief complaint: Septic shock with respiratory failure History of present illness: This is a 61-year-old white female who was transferred to the nearest cardiac [employer] instead of her usual [facility] admission due to what appeared to be an ST elevation [place]. She was diagnosed with shock and intubated for airway safety. She was found to have potassium of 7.2 giving rise to what appeared to be a STEMI but it was not. Dr. Queen had been in the ER awaiting her arrival. Considering no STEMI she was admitted to ICU with septic shock possibly from SBP considering UA and chest x-ray were within normal limits. She appears to be very debilitated and I did review [facility] records and she receives paracenteses on a regular basis due to end-stage liver disease and she had been holding her Coumadin due to requiring the procedure. Her INR was 1.6. Echocardiogram revealed severely elevated PA pressure so heparin drip was initiated due to suspicion for massive PE. Chronic kidney disease precluded angiogram to confirm suspicion of PE. She does have paroxysmal atrial fibrillation. After pancultured she was placed on Levaquin for SBP coverage. Patient appears to be very end-of-life. Subjective/Events-last exam Patient intubated and sedated Family at bedside during physician rounds Focused Exam Lactate Level 04/14/21 21:21: Lactic Acid Level 3.12*H 04/14/21 23:37: Lactic Acid Level 2.83*H 04/15/21 05:12: Lactic Acid Level 1.26 Objective Exam Vital Signs Vital Signs Date Time Temp Pulse Resp B/P (MAP) Pulse Ox O2 Delivery O2 Flow Rate FiO2 04/16/21 10:28 104 22 95 30 04/16/21 09:30 103/68 (79) 04/16/21 09:00 Mechanical Ventilator 30.00 04/16/21 07:30 37.1 Capillary Refill : Less Than 3 Seconds General Appearance: No Apparent Distress, Other (Sedated) HEENT: PERRL/EOMI, Normal ENT Inspection (Intubated and central line, but no other gross deformities), Other (Intubated) Respiratory: Other (Mechanical breath sounds bilaterally, but lungs sound coarse) Cardiovascular: Normal Peripheral Pulses (Radial pulses bilaterally), Systolic Murmur, Tachycardia Gastrointestinal: Non Tender, Soft Neurologic/Psychiatric: Other (Sedated) Lymphatic: No Adenopathy (Supraclavicular) Results/Procedures Lab Laboratory Tests 04/16/21 05:30 Patient resulted labs reviewed. Assessment/Plan Assessment and Plan Assess & Plan/Chief Complaint Assessment: Septic shock Respiratory failure intubated in ER Severe hyperkalemia (resolved (4.0) Chronic kidney disease End-stage liver disease Ascites receiving paracentesis often at [facility] Possible SBP placed on Levaquin renal dosed Paroxysmal atrial fibrillation Aortic valve replacement Plan: Continue antiobiotics Currently requiring Levophed Appreciate Cardiology Prognosis guarded ROMINA ARREDONDO DO 04/17/21 0529: Subjective HPI/CC On Admission Date Seen by Provider: Apr 16, 2021 Time Seen by Provider: 10:00 Subjective/Events-last exam Pt more responsive Low vent settings Coarse breath sounds noted Aortic stenosis murmur ABG is 7.3 Remains on Levophed for hypotension Sodium level improved from 129 to 135 Chest x-ray shows cardiomegaly Heparin drip maintained Objective Exam General Appearance: No Apparent Distress, Chronically ill, Other (Sedated) Respiratory: Decreased Breath Sounds Cardiovascular: Systolic Murmur Assessment/Plan Assessment and Plan Assess & Plan/Chief Complaint Monitor closely Intubation Guarded prognosis Supervisory-Addendum Brief Verification & Attestation Participated in pt care: history, MDM, physical Personally performed: exam, history, MDM, supervision of care Care discussed with: Medical Student Procedures: n/a Results interpretation: Verified all documentation Verification and Attestation of Medical Student E/M Service A medical student performed and documented this service in my presence. I reviewed and verified all information documented by the medical student and made modifications to such information, when appropriate. I personally performed the physical exam and medical decision making. Romina Arredondo, Apr 17, 2021,05:29 [facility] Apr 16, 2021 12:42 ROMINA ARREDONDO DO Apr 17, 2021 05:29
[2021-04-16] MEDS ORDERED: PANT40TA52 PO (14:59)
[2021-04-16] MEDS ORDERED: SPIR25TA5 PO (14:59)
[2021-04-16] MEDS ORDERED: LACT10SO27 PO (14:59)
[2021-04-16] MEDS ORDERED: BUME1TAB8 PO (14:59)
[2021-04-16] MEDS ORDERED: POTA-169 PO (14:59)
[2021-04-16] MEDS ORDERED: FERR240T5 PO (14:59)
[2021-04-16] MEDS ORDERED: WARF6TAB49 PO (14:59)
[2021-04-16] MEDS ORDERED: HYOS-6 PO (14:59)
[2021-04-16] MEDS ORDERED: FLUT9.9S NSEACH (14:59)
[2021-04-16] MEDS ORDERED: MULT-1136 PO (14:59)
[2021-04-16] MEDS ORDERED: LEVO75TA97 PO (14:59)
[2021-04-16] MEDS ORDERED: ASCO-262 PO (14:59)
[2021-04-16] MEDS ORDERED: SERT-414 PO (14:59)
[2021-04-16] MEDS ORDERED: CALC600T91 PO (14:59)
[2021-04-16] MEDS ORDERED: METO-333 PO (14:59)
[2021-04-16] MEDS ORDERED: WARF3TAB56 PO (14:59)
[2021-04-16] MEDS ORDERED: MIDO5TAB3 PO (14:59)
[2021-04-16] MEDS ORDERED: OXYB5TAB13 PO (14:59)
[2021-04-16] MEDS ORDERED: RIFA550T PO (14:59)
[2021-04-16] MEDS: HEParin DRIP 25000 UNIT/500ML 500 ML IV SCH (17:51)
[2021-04-17] VITALS (30 sets, daily range): BP systolic 94–131; BP diastolic 55–90
[2021-04-17] MEDS: DexMEDEtomidine 250 ML DRIP 250 ML IV SCH ×2 (00:41→23:10)
[2021-04-17] MEDS: SODIUM BICARBONATE 8.4% VIAL 100 MEQ in 1/2 NS IV SOLUTION 1,000 ML IV SCH (00:42)
[2021-04-17 05:08] LABS: BASOPHILS % (AUTO) 1 % (0-10); EOSINOPHILS # (AUTO) 0.2 10^3/uL (0.0-0.3); EOSINOPHILS % (AUTO) 3 % (0-10); HEMATOCRIT 35 % (35-52); HEMOGLOBIN 11.6 g/dL (11.5-16.0); LYMPHOCYTES # (AUTO) 0.6 10^3/uL (1.0-4.0); LYMPHOCYTES % (AUTO) 8 % (12-44); MEAN CORPUSCULAR HEMOGLOBIN 31 pg (25-34); MEAN CORPUSCULAR HGB CONC 33 g/dL (32-36); MEAN CORPUSCULAR VOLUME 93 fL (80-99); MEAN PLATELET VOLUME 8.4 fL (9.0-12.2); MONOCYTES # (AUTO) 0.6 10^3/uL (0.0-1.0); MONOCYTES % (AUTO) 8 % (0-12); NEUTROPHILS # (AUTO) 6.1 10^3/uL (1.8-7.8); NEUTROPHILS % (AUTO) 80 % (42-75); PLATELET COUNT 186 10^3/uL (130-400); WHITE BLOOD COUNT 7.6 10^3/uL (4.3-11.0)
[2021-04-17 05:10] LABS: ABG BASE EXCESS 1.5 MMOL/L (-2.5-2.5); ABG OXYGEN SATURATION 98 % (94-100); ABG PCO2 39 MMHG (35-45); ABG PH 7.43 (7.37-7.43); ABG PO2 83 MMHG (79-93); ABG TCO2 26.5 MMOL/L (21.0-31.0); ALLENS TEST YES-POS; INSPIRED O2 30%; PATIENT TEMP 37.2; VENTILATOR YES
[2021-04-17 05:34] LABS: ALBUMIN 2.3 GM/DL (3.2-4.5); BILIRUBIN,TOTAL 1.3 MG/DL (0.1-1.0); CALCIUM 7.6 MG/DL (8.5-10.1); CREATININE SERUM 0.9 MG/DL (0.60-1.30); PHOSPHORUS 2.5 MG/DL (2.3-4.7); POTASSIUM 3.6 MMOL/L (3.6-5.0); TOTAL PROTEIN 4.6 GM/DL (6.4-8.2)
[2021-04-17] MEDS: MAGNESIUM 1 GM/100 ML IVPB 100 ML IV SCH (05:39)
[2021-04-17] MEDS: KCL 20 MEQ TAB (K-DUR) PO SCH (06:06)
[2021-04-17] MEDS: POTASSIUM CL 10MEQ/50ML IVPB 50 ML IV SCH ×3 (06:15→09:35)
--- NOTE | 2021-04-17 06:48 | Occ Therapy Progress Note ---
Therapy Progress Note Pt is currently intubated. OT to monitor pt's progress and will initiate treatment when pt is medically stable and able to actively participate in skilled therapy. FRANCISCO JAVIER REGALADO Apr 17, 2021 06:48
--- NOTE | 2021-04-17 07:30 | Physical Therapy Progress Note ---
Therapy Progress Note Patient currently intubated and sedated. PT will monitor patient status and initiate treatment when patient is able to actively participate with skilled therapy. HERMAN KENNY PT Apr 17, 2021 07:30
[2021-04-17] MEDS: PANTOPRAZOLE 40 MG (PROTONIX) VIAL IV SCH (07:37)
[2021-04-17] MEDS: LACTULOSE SYRUP 10GM/15ML (ENULOSE) 30ML UDC NG SCH ×3 (07:37→20:28)
[2021-04-17] MEDS: fentaNYL DRIP PRE-MIX 250 ML IV SCH ×3 (07:38→23:10)
--- NOTE | 2021-04-17 07:54 | Diagnostic Imaging Report ---
INDICATION: Follow-up pneumonia. EXAMINATION: Chest 04/17/2021 COMPARISON: 04/16/2021 FINDINGS: Heart is enlarged with pulmonary vasculature stable from previous imaging. There are increased interstitial markings throughout both lungs also stable with bibasilar infiltrates and effusions. There is no pneumothorax. There are sternotomy wires with heart valve present. ET tube tip unremarkable. Feeding tube courses beneath the diaphragm and lies in the left upper quadrant. IMPRESSION: 1. Findings of pulmonary edema with bibasilar infiltrates and effusions. 2. Cardiomegaly with other findings as above. Dictated by: Dictated on workstation # [id number]
--- NOTE | 2021-04-17 08:58 | Cardiology Progress Note ---
Progress Note-Cardiology Events since last exam Date Seen by Provider: Apr 17, 2021 Time Seen by Provider: 08:53 Events since last exam I am following her due to heart failure and now probable atrial fibrillation /flutter. She remains intubated in the intensive care unit but opens her eyes to voice. She seems to be following simple commands. I am not able to obtain any history from the patient due to her intubated status. Last evening she developed tachycardia. This has improved this morning with increasing her sedation. The plan is to attempt to wean sedation later today and work on weaning trials from the ventilator. I did speak to her nurse of today. Certain portions of this document may have been dictated utilizing voice recognition technology. Inherent to this technology, typographical and grammatical errors may exist. As much as I am diligent to identify and correct these mistakes, some errors may remain in the document. Vitals Last set of Vitals Signs Vital Signs 04/17/21 04/17/21 04/17/21 04:00 06:37 08:00 Temp 37.2 Pulse 101 Resp 10 B/P (MAP) 104/68 (80) Pulse Ox 96 O2 Delivery Mechanical Ventilator O2 Flow Rate 30.00 FiO2 30 Labs Labs Laboratory Tests 04/17/21 04:57 Exam Vital Signs Vital Signs Date Time Temp Pulse Resp B/P (MAP) Pulse Ox O2 Delivery O2 Flow Rate FiO2 04/17/21 08:00 101 10 104/68 (80) 96 Mechanical Ventilator 30.00 04/17/21 06:37 30 04/17/21 04:00 37.2 Physical Exam General: Intubated but awake. Well nourished and appears older than her stated age. Eye: Conjunctivae are clear. There are no xanthelasma. HENT: Normocephalic. Atraumatic. Carotid pulsations 2/2 without bruits. Neck: Jugular venous pressure does not appear elevated. No thyromegaly appreciated. Respiratory: Symmetrical expansion bilaterally. Coarse breath sounds due to the ventilator. Cardiovascular: Normal rate. Irregular rhythm. Metallic S2. 3/6 systolic ejection murmur. No gallop. Point of maximal impulse is not appear displaced. Good pulses equal in all extremities. No edema. Gastrointestinal: Soft. Normal bowel sounds. Skin: Skin turgor is normal. There is no pallor. Musculoskeletal: No obvious deformities. Neurologic: Intubated but awake. She seems to be moving all 4 extremities. Psychiatric: Sedated but arousable to voice. Labs Laboratory Tests Test 04/16/21 12:24 04/16/21 12:31 04/16/21 17:46 04/16/21 17:47 Range/Units Activated Partial Thromboplast Time 117 *H 106 H 24-35 SEC Glucometer 83 80 70-110 MG/DL Test 04/17/21 00:10 04/17/21 00:12 04/17/21 04:49 04/17/21 04:57 Range/Units Activated Partial Thromboplast Time 109 H 24-35 SEC Glucometer 104 70-110 MG/DL Blood Gas Puncture Site RT RADIAL Blood Gas Patient Temperature 37.2 Arterial Blood pH 7.43 7.37-7.43 Arterial Blood Partial Pressure CO2 39 35-45 MMHG Arterial Blood Partial Pressure O2 83 79-93 MMHG Arterial Blood HCO3 25 23-27 MMOL/L Arterial Blood Total CO2 26.5 21.0-31.0 MMOL/L Arterial Blood Oxygen Saturation 98 94-100 % Arterial Blood Base Excess 1.5 -2.5-2.5 MMOL/L Joshua Test YES-POS Blood Gas Ventilator Setting YES Blood Gas Inspired Oxygen 30% White Blood Count 7.6 4.3-11.0 10^3/uL Red Blood Count 3.80 3.80-5.11 10^6/uL Hemoglobin 11.6 11.5-16.0 g/dL Hematocrit 35 35-52 % Mean Corpuscular Volume 93 80-99 fL Mean Corpuscular Hemoglobin 31 25-34 pg Mean Corpuscular Hemoglobin Concent 33 32-36 g/dL Red Cell Distribution Width 19.5 H 10.0-14.5 % Platelet Count 186 130-400 10^3/uL Mean Platelet Volume 8.4 L 9.0-12.2 fL Immature Granulocyte % (Auto) 0 % Neutrophils (%) (Auto) 80 H 42-75 % Lymphocytes (%) (Auto) 8 L 12-44 % Monocytes (%) (Auto) 8 0-12 % Eosinophils (%) (Auto) 3 0-10 % Basophils (%) (Auto) 1 0-10 % Neutrophils # (Auto) 6.1 1.8-7.8 10^3/uL Lymphocytes # (Auto) 0.6 L 1.0-4.0 10^3/uL Monocytes # (Auto) 0.6 0.0-1.0 10^3/uL Eosinophils # (Auto) 0.2 0.0-0.3 10^3/uL Basophils # (Auto) 0.0 0.0-0.1 10^3/uL Immature Granulocyte # (Auto) 0.0 0.0-0.1 10^3/uL Sodium Level 138 135-145 MMOL/L Potassium Level 3.6 3.6-5.0 MMOL/L Chloride Level 106 98-107 MMOL/L Carbon Dioxide Level 22 21-32 MMOL/L Anion Gap 10 5-14 MMOL/L Blood Urea Nitrogen 15 7-18 MG/DL Creatinine 0.90 0.60-1.30 MG/DL Estimat Glomerular Filtration Rate 74 BUN/Creatinine Ratio 17 Glucose Level 107 H 70-105 MG/DL Calcium Level 7.6 L 8.5-10.1 MG/DL Corrected Calcium 9.0 8.5-10.1 MG/DL Phosphorus Level 2.5 2.3-4.7 MG/DL Magnesium Level 2.0 1.6-2.4 MG/DL Total Bilirubin 1.3 H 0.1-1.0 MG/DL Aspartate Amino Transf (AST/SGOT) 55 H 5-34 U/L Alanine Aminotransferase (ALT/SGPT) 31 0-55 U/L Alkaline Phosphatase 174 H 40-136 U/L Total Protein 4.6 L 6.4-8.2 GM/DL Albumin 2.3 L 3.2-4.5 GM/DL Test 04/17/21 05:59 Range/Units Activated Partial Thromboplast Time 123 *H 24-35 SEC Diagnosis/Problems Diagnosis/Problems (1) Acute on chronic heart failure with preserved ejection fraction (HFpEF) Assessment & Plan: She probably has some degree of acute on chronic pulmonary congestion. She also has superimposed severe pulmonary hypertension. She did receive intravenous fluid resuscitation. Her chest x-ray from this morning shows pulmonary congestion. I will start her on a furosemide infusion. She was on spironolactone 75 mg twice daily at home. This may have contributed to her hypokalemia that was present at the time of admission. For the time being, I will hold off on restarting spironolactone. (2) Paroxysmal atrial fibrillation Assessment & Plan: Have reviewed the records from her regular water sponger and she does have a history of paroxysmal atrial fibrillation. Heart rates are improved today. She may develop intermittent tachycardia during weaning trials of sedation and the ventilator. Unfortunately, she remains on norepinephrine infusion which makes it difficult to treat the tachycardia. Her heart rates are improved this morning. If she does develop recurrent, persistent tachycardia, we could consider an amiodarone infusion. (3) Shock Assessment & Plan: Exact etiology unclear. She has multiple metabolic derangements and I suspect superimposed sepsis. However, her ejection fraction is normal and she has a mechanical aortic valve prosthesis that appears to be functioning normally which makes cardiogenic shock unlikely. The nurse's have been working on weaning norepinephrine. (4) Complete heart block Assessment & Plan: Now resolved. She appears as though she may have an ectopic atrial rhythm versus underlying atrial fibrillation at the time of admission and then developed complete heart block that required temporary external pacing. This may have been related to the severe hyperkalemia that has now improved with treatment. (5) Pulmonary hypertension Assessment & Plan: Her echocardiogram from 04/14 shows severe pulmonary hypertension that is of unknown etiology. I would suspect a pulmonary embolism would be unlikely since she has been taking warfarin. Her most recent echocardiogram from 2020 at [facility] also showed severe pulmonary hypertension. This is likely related to her chronic heart failure. She may benefit from home oxygen if she is not already using this. (6) History of aortic valve replacement with metallic valve Assessment & Plan: Her echocardiogram echocardiogram from 04/14 showed what appears to be a probable [employer] Edi aortic valve that appears to be functioning normally without significant stenosis or regurgitation. I have her on intravenous heparin due to the mechanical aortic valve. Ultimately, she will need to get back on her warfarin. (7) Acute on chronic respiratory failure with hypoxia and hypercapnia Assessment & Plan: Exact etiology unclear. I suspect this is multifactorial but not with a significant amount of heart failure. This is being managed by the hospitalist and internet webmaster. Weaning trials from the ventilator are in process. (8) Acute kidney injury superimposed on chronic kidney disease Assessment & Plan: This may have caused or at least contributed to the hyperkalemia. Her most recent baseline creatinine appears to be somewhere around 1.2. This has improved. (9) Hyperkalemia Status: Acute Assessment & Plan: This has improved. As above, this may at least be partially due to the acute kidney injury on chronic kidney disease. Her potassium level is now normal. Her sons tell me that she had been taking potassium at home and also has been eating potassium rich foods because she has been having problems with low potassium levels. I would question whether or not she may have inadvertently taken too much potassium supplementation. Furthermore, she was supposed to be taking spironolactone for her heart failure which also may have contributed to the hyperkalemia. (10) Unresponsive Status: Acute Assessment & Plan: This seems to be resolving. Etiology unclear. Her urine toxicology screen was unremarkable and her head CT did not show any abnormalities to explain unresponsiveness. DUTCH MORILLO JR, MD Apr 17, 2021 08:58
[2021-04-17] MEDS ORDERED: D5W 100 ML IVPB 100 ML IV ONE (09:29)
--- NOTE | 2021-04-17 10:01 | Tele-ICU Progress Note ---
Subjective Date Seen by a Provider: Apr 17, 2021 Time Seen by a Provider: 10:01 Sepsis Event Evaluation Height, Weight, BMI Height: '" Weight: lbs. oz. kg; 21.00 BMI Method: Focused Exam Lactate Level 04/14/21 21:21: Lactic Acid Level 3.12*H 04/14/21 23:37: Lactic Acid Level 2.83*H 04/15/21 05:12: Lactic Acid Level 1.26 Exam Exam Patient acknowledged, consented, and participated in this virtual visit which was conducted using real time audio/video Vital Signs Date Time Temp Pulse Resp B/P (MAP) Pulse Ox O2 Delivery O2 Flow Rate FiO2 04/17/21 09:56 171 22 94 30 04/17/21 09:00 106 105/55 (72) 96 Mechanical Ventilator 30.00 04/17/21 08:00 101 10 104/68 (80) 96 Mechanical Ventilator 30.00 04/17/21 08:00 96 Mechanical Ventilator 30 04/17/21 08:00 37.5 04/17/21 07:00 101 04/17/21 07:00 149 9 107/73 (84) 96 Mechanical Ventilator 30.00 04/17/21 06:37 149 21 100 30 04/17/21 06:32 180 04/17/21 06:08 109 16 108/72 (84) 97 Mechanical Ventilator 30.00 04/17/21 05:05 101 16 111/72 (85) 97 Mechanical Ventilator 30.00 04/17/21 04:00 96 Mechanical Ventilator 30 04/17/21 04:00 37.2 04/17/21 04:00 106 16 107/65 (79) 96 Mechanical Ventilator 30.00 04/17/21 03:00 101 16 108/70 (83) 95 Mechanical Ventilator 30.00 04/17/21 02:29 118 22 94 30 04/17/21 02:00 104 16 105/62 (72) 95 Mechanical Ventilator 30.00 04/17/21 01:00 107 04/17/21 01:00 107 16 104/66 (78) 95 Mechanical Ventilator 30.00 04/17/21 00:41 110 102/61 04/17/21 00:00 110 16 104/67 (79) 96 Mechanical Ventilator 30.00 04/17/21 00:00 37.3 1/24/22 23:59 96 Mechanical Ventilator 30 04/16/21 23:00 113 16 110/61 (77) 94 Mechanical Ventilator 30.00 04/16/21 22:44 113 23 94 30 04/16/21 22:00 138 16 111/74 (82) 94 Mechanical Ventilator 30.00 04/16/21 21:00 131 16 108/70 (81) 94 Mechanical Ventilator 30.00 04/16/21 20:00 96 Mechanical Ventilator 30 04/16/21 20:00 135 16 106/72 (86) 94 Mechanical Ventilator 30.00 04/16/21 19:32 36.7 04/16/21 19:00 117 04/16/21 19:00 117 16 114/73 (87) 94 Mechanical Ventilator 30.00 04/16/21 18:30 96 30 109/66 (86) 95 04/16/21 18:30 123 22 94 30 04/16/21 18:15 112 23 105/69 (77) 95 04/16/21 18:00 123 22 114/73 (87) 95 Mechanical Ventilator 30.00 04/16/21 17:45 112 22 108/65 (75) 04/16/21 17:40 125 109/82 04/16/21 17:30 120 21 109/82 (90) 92 04/16/21 17:15 117 22 107/73 (82) 94 04/16/21 17:00 109 23 109/76 (89) 94 Mechanical Ventilator 30.00 04/16/21 16:45 123 33 112/68 (79) 94 04/16/21 16:30 122 26 112/71 (90) 92 04/16/21 16:15 114 23 117/72 (86) 93 Mechanical Ventilator 30.00 04/16/21 16:00 95 Mechanical Ventilator 30 04/16/21 16:00 36.9 04/16/21 16:00 122 22 117/69 (85) 95 04/16/21 15:45 110 22 119/70 (80) 94 04/16/21 15:30 122 23 120/71 (79) 95 04/16/21 15:15 123 23 118/79 (93) 95 04/16/21 15:00 102 21 116/73 (85) 94 Mechanical Ventilator 30.00 04/16/21 14:46 112 22 95 30 04/16/21 14:45 124 22 115/71 (89) 93 04/16/21 14:30 123 21 111/76 (87) 04/16/21 14:15 112 21 116/75 (85) 95 04/16/21 14:00 109 21 114/66 (83) 95 Mechanical Ventilator 30.00 04/16/21 13:45 123 21 112/68 (93) 92 04/16/21 13:30 108 21 112/65 (81) 96 04/16/21 13:15 121 22 103/68 (79) 97 04/16/21 13:00 118 21 112/72 (78) 95 Mechanical Ventilator 30.00 04/16/21 13:00 118 04/16/21 12:45 126 21 106/67 (76) 94 04/16/21 12:30 108 21 100/64 (77) 92 04/16/21 12:15 112 21 110/77 (90) 04/16/21 12:00 121 22 124/74 (88) 95 Mechanical Ventilator 30.00 04/16/21 12:00 95 Mechanical Ventilator 30 04/16/21 12:00 36.9 04/16/21 11:45 107 23 120/77 (84) 95 04/16/21 11:30 106 22 121/74 (87) 93 04/16/21 11:15 103 24 118/71 (84) 95 04/16/21 11:00 96 24 107/70 (91) 95 Mechanical Ventilator 30.00 04/16/21 10:59 97 24 105/66 (80) 04/16/21 10:45 100 21 83/52 (60) 94 04/16/21 10:30 100 24 110/66 (80) 94 04/16/21 10:28 104 22 95 30 04/16/21 10:15 102 23 110/65 (83) 95 I & O 04/17/21 07:00 Intake Total 2070 ml Output Total 1850 ml Balance 220 ml Height & Weight Height: '" Weight: lbs. oz. kg; 21.00 BMI Method: General Appearance: No Apparent Distress, Chronically ill, Other (Sedated) HEENT: PERRL/EOMI, Normal ENT Inspection (Intubated and central line, but no other gross deformities), Other (Intubated) Neck: Normal Inspection Respiratory: Decreased Breath Sounds Cardiovascular: Systolic Murmur Capillary Refill: Less Than 3 Seconds Extremity: Normal Capillary Refill, Normal Inspection, Normal Range of Motion, Non Tender, No Calf Tenderness, Pedal Edema Neurologic/Psychiatric: Other (Sedated) Skin: Normal Color, Warm/Dry Lymphatic: No Adenopathy (Supraclavicular) Results Lab Laboratory Tests 04/16/21 05:30 04/17/21 04:57 Assessment/Plan Assessment/Plan (Tele-ICU Physician , Progress Note ) Available chart/ vitals / labs / Images reviewed Video assessment done using teleICU camera, rest of exam as per RN Discussed with RN , EXAM PER RN Events overnight : Afebrile FiO2 - 30 I/O = neg 5400 Drips: bicarb , heparin , NS Pressors: LEVO hemodynamically stable Sedation gtt: ( RASS -2 ) prx 0.7, prop , fent 175 VENT SETTINGS and ABG reviewed Not candidate for SBT today REVIEWED Cardiovascular Stability / Sedation Score / FI02/PEEP / ABG / CXR Consultants: shanel Hospital course: 04/17 - AFIB RVR A/P Acute resp failure - in vent 30% - will assess for liberation today - developed intermittent tachycardia during weaning trials of sedation and the ventilator. -decrease sedation today - A/Ch CHF - EF 70 % - as per cards - will stop IVF with improved Cr and negative 6 L urine output and pulm HTN - lasix gtt 04/17 Shock - cards vs other - weaning down LEVO - cortisol= 20 on 04/16 Pulm HTN - severe as per ECHO -- RBSP 90 mm Hg etiology to be established , cont AC - as per cards - discussed with Dr Queen - patient is followed in [facility] ( but not on any meds for pulnm HTN AVR with metallic valve - on heparin GTT LEONORA- improved , will decrease bicarb gtt with goal to stop soon ID - on levofloxacin empiric 04/14 - cx neg AMS change - CTH neg -tox screen neg , ammonia WNL -follow closely with decreasing seation Lines : Scl LEFT (Central Line Necessity Reviewed) Trevino: + OG: Nutrition: TF to start 04/16 Analgesia: Anxiety/ delirium VTE Prophylaxis: hep gtt Stress Ulcer Prophylaxis: Glycemic Control: Plans in collaboration with bedside consultants and IM MDs. Discussed with RN to reach out if any questions or concerns A total of 33 minutes of critical care time was devoted to this patient today, required to treat and/or prevent further deterioration of critical care condition ( as above) . ROBBIE MILLER MD Apr 17, 2021 10:01
--- NOTE | 2021-04-17 10:33 | Tele-ICU Progress Note ---
Subjective Date Seen by a Provider: Apr 17, 2021 Time Seen by a Provider: 10:33 Sepsis Event Evaluation Height, Weight, BMI Height: '" Weight: lbs. oz. kg; 21.00 BMI Method: Focused Exam Lactate Level 04/14/21 21:21: Lactic Acid Level 3.12*H 04/14/21 23:37: Lactic Acid Level 2.83*H 04/15/21 05:12: Lactic Acid Level 1.26 Exam Exam Patient acknowledged, consented, and participated in this virtual visit which was conducted using real time audio/video Vital Signs Date Time Temp Pulse Resp B/P (MAP) Pulse Ox O2 Delivery O2 Flow Rate FiO2 04/17/21 10:00 163 21 97/75 (82) 94 Mechanical Ventilator 30.00 04/17/21 09:56 171 22 94 30 04/17/21 09:00 106 105/55 (72) 96 Mechanical Ventilator 30.00 04/17/21 08:00 101 10 104/68 (80) 96 Mechanical Ventilator 30.00 04/17/21 08:00 96 Mechanical Ventilator 30 04/17/21 08:00 37.5 04/17/21 07:00 101 04/17/21 07:00 149 9 107/73 (84) 96 Mechanical Ventilator 30.00 04/17/21 06:37 149 21 100 30 04/17/21 06:32 180 04/17/21 06:08 109 16 108/72 (84) 97 Mechanical Ventilator 30.00 04/17/21 05:05 101 16 111/72 (85) 97 Mechanical Ventilator 30.00 04/17/21 04:00 96 Mechanical Ventilator 30 04/17/21 04:00 37.2 04/17/21 04:00 106 16 107/65 (79) 96 Mechanical Ventilator 30.00 04/17/21 03:00 101 16 108/70 (83) 95 Mechanical Ventilator 30.00 04/17/21 02:29 118 22 94 30 04/17/21 02:00 104 16 105/62 (72) 95 Mechanical Ventilator 30.00 04/17/21 01:00 107 04/17/21 01:00 107 16 104/66 (78) 95 Mechanical Ventilator 30.00 04/17/21 00:41 110 102/61 04/17/21 00:00 110 16 104/67 (79) 96 Mechanical Ventilator 30.00 04/17/21 00:00 37.3 04/16/21 23:59 96 Mechanical Ventilator 30 04/16/21 23:00 113 16 110/61 (77) 94 Mechanical Ventilator 30.00 04/16/21 22:44 113 23 94 30 04/16/21 22:00 138 16 111/74 (82) 94 Mechanical Ventilator 30.00 04/16/21 21:00 131 16 108/70 (81) 94 Mechanical Ventilator 30.00 04/16/21 20:00 96 Mechanical Ventilator 30 04/16/21 20:00 135 16 106/72 (86) 94 Mechanical Ventilator 30.00 04/16/21 19:32 36.7 04/16/21 19:00 117 04/16/21 19:00 117 16 114/73 (87) 94 Mechanical Ventilator 30.00 04/16/21 18:30 96 30 109/66 (86) 95 04/16/21 18:30 123 22 94 30 04/16/21 18:15 112 23 105/69 (77) 95 04/16/21 18:00 123 22 114/73 (87) 95 Mechanical Ventilator 30.00 04/16/21 17:45 112 22 108/65 (75) 04/16/21 17:40 125 109/82 04/16/21 17:30 120 21 109/82 (90) 92 04/16/21 17:15 117 22 107/73 (82) 94 04/16/21 17:00 109 23 109/76 (89) 94 Mechanical Ventilator 30.00 04/16/21 16:45 123 33 112/68 (79) 94 04/16/21 16:30 122 26 112/71 (90) 92 04/16/21 16:15 114 23 117/72 (86) 93 Mechanical Ventilator 30.00 04/16/21 16:00 95 Mechanical Ventilator 30 04/16/21 16:00 36.9 04/16/21 16:00 122 22 117/69 (85) 95 04/16/21 15:45 110 22 119/70 (80) 94 04/16/21 15:30 122 23 120/71 (79) 95 04/16/21 15:15 123 23 118/79 (93) 95 04/16/21 15:00 102 21 116/73 (85) 94 Mechanical Ventilator 30.00 04/16/21 14:46 112 22 95 30 04/16/21 14:45 124 22 115/71 (89) 93 04/16/21 14:30 123 21 111/76 (87) 04/16/21 14:15 112 21 116/75 (85) 95 04/16/21 14:00 109 21 114/66 (83) 95 Mechanical Ventilator 30.00 04/16/21 13:45 123 21 112/68 (93) 92 04/16/21 13:30 108 21 112/65 (81) 96 04/16/21 13:15 121 22 103/68 (79) 97 04/16/21 13:00 118 21 112/72 (78) 95 Mechanical Ventilator 30.00 04/16/21 13:00 118 04/16/21 12:45 126 21 106/67 (76) 94 04/16/21 12:30 108 21 100/64 (77) 92 04/16/21 12:15 112 21 110/77 (90) 04/16/21 12:00 121 22 124/74 (88) 95 Mechanical Ventilator 30.00 04/16/21 12:00 95 Mechanical Ventilator 30 04/16/21 12:00 36.9 04/16/21 11:45 107 23 120/77 (84) 95 04/16/21 11:30 106 22 121/74 (87) 93 04/16/21 11:15 103 24 118/71 (84) 95 04/16/21 11:00 96 24 107/70 (91) 95 Mechanical Ventilator 30.00 04/16/21 10:59 97 24 105/66 (80) 04/16/21 10:45 100 21 83/52 (60) 94 I & O 04/17/21 07:00 Intake Total 2070 ml Output Total 1850 ml Balance 220 ml Height & Weight Height: '" Weight: lbs. oz. kg; 21.00 BMI Method: General Appearance: No Apparent Distress, Chronically ill, Other (Sedated) HEENT: PERRL/EOMI, Normal ENT Inspection (Intubated and central line, but no other gross deformities), Other (Intubated) Neck: Normal Inspection Respiratory: Decreased Breath Sounds Cardiovascular: Systolic Murmur Capillary Refill: Less Than 3 Seconds Extremity: Normal Capillary Refill, Normal Inspection, Normal Range of Motion, Non Tender, No Calf Tenderness, Pedal Edema Neurologic/Psychiatric: Other (Sedated) Skin: Normal Color, Warm/Dry Lymphatic: No Adenopathy (Supraclavicular) Results Lab Laboratory Tests 04/16/21 05:30 04/17/21 04:57 Assessment/Plan Assessment/Plan (Tele-ICU Physician , Progress Note ) Available chart/ vitals / labs / Images reviewed Video assessment done using teleICU camera, rest of exam as per RN Discussed with RN , EXAM PER RN Events overnight : Afebrile FiO2 - 30 I/O = neg 5400 Drips: bicarb , heparin , NS Pressors: LEVO hemodynamically stable Sedation gtt: ( RASS -2 ) prx 0.7, prop , fent 175 VENT SETTINGS and ABG reviewed Not candidate for SBT today REVIEWED Cardiovascular Stability / Sedation Score / FI02/PEEP / ABG / CXR Consultants: shanel Hospital course: 04/17 - AFIB RVR A/P Acute resp failure - in vent 30% - will assess for liberation today - developed intermittent tachycardia during weaning trials of sedation and the ventilator. -decrease sedation today - A/Ch CHF - EF 70 % - as per cards - will stop IVF with improved Cr and negative 6 L urine output and pulm HTN - lasix gtt 04/17 Shock - cards vs other - weaning down LEVO - cortisol= 20 on 04/16 Pulm HTN - severe as per ECHO -- RBSP 90 mm Hg etiology to be established , cont AC - as per cards - discussed with Dr Queen - patient is followed in [facility] ( but not on any meds for pulnm HTN AVR with metallic valve - on heparin GTT LEONORA- improved , will decrease bicarb gtt with goal to stop soon ID - on levofloxacin empiric 04/14 - cx neg AMS change - CTH neg -tox screen neg , ammonia WNL -follow closely with decreasing seation Lines : Scl LEFT (Central Line Necessity Reviewed) Trevino: + OG: Nutrition: TF to start 04/16 Analgesia: Anxiety/ delirium VTE Prophylaxis: hep gtt Stress Ulcer Prophylaxis: Glycemic Control: Plans in collaboration with bedside consultants and IM MDs. Discussed with RN to reach out if any questions or concerns A total of 33 minutes of critical care time was devoted to this patient today, required to treat and/or prevent further deterioration of critical care condition ( as above) . ROBBIE MILLER MD Apr 17, 2021 10:33
--- NOTE | 2021-04-17 10:46 | Progress Note - Hospitalist ---
[facility] 04/17/21 1046: Subjective HPI/CC On Admission Date Seen by Provider: Apr 17, 2021 Time Seen by Provider: 08:00 Chief complaint: Septic shock with respiratory failure History of present illness: This is a 61-year-old white female who was transferred to the nearest cardiac [facility] instead of her usual [facility] med admission due to what appeared to be an ST elevation LA. She was diagnosed with shock and intubated for airway safety. She was found to have potassium of 7.2 giving rise to what appeared to be a STEMI but it was not. Dr. Queen had been in the ER awaiting her arrival. Considering no STEMI she was admitted to ICU with septic shock possibly from SBP considering UA and chest x-ray were within normal limits. She appears to be very debilitated and I did review [facility] records and she receives paracenteses on a regular basis due to end-stage liver disease and she had been holding her Coumadin due to requiring the procedure. Her INR was 1.6. Echocardiogram revealed severely elevated PA pressure so heparin drip was initiated due to suspicion for massive PE. Chronic kidney disease precluded angiogram to confirm suspicion of PE. She does have paroxysmal atrial fibril lation. After pancultured she was placed on Levaquin for SBP coverage. Patient appears to be very end-of-life. Subjective/Events-last exam Patient Intubated, but alert and responding with head movements Denies any pain Did have an episode of Aflutter last night/morning Currently on Levophed Focused Exam Lactate Level 04/14/21 21:21: Lactic Acid Level 3.12*H 04/14/21 23:37: Lactic Acid Level 2.83*H 04/15/21 05:12: Lactic Acid Level 1.26 Objective Exam Vital Signs Vital Signs Date Time Temp Pulse Resp B/P (MAP) Pulse Ox O2 Delivery O2 Flow Rate FiO2 04/17/21 11:25 146 104/72 04/17/21 11:00 20 95 Mechanical Ventilator 30.00 04/17/21 09:56 30 04/17/21 08:00 37.5 Capillary Refill : Less Than 3 Seconds General Appearance: No Apparent Distress, Chronically ill HEENT: PERRL/EOMI, Normal ENT Inspection (No gross deformities, but intubated with OG tube) Neck: Non Tender, Supple Respiratory: No Accessory Muscle Use, No Respiratory Distress, Other (Mechanical breath sounds and coarse breath sounds had improved) Cardiovascular: Normal Peripheral Pulses (Radial pulses 2+ bilaterally), Systolic Murmur (Aortic murmur secondary to mechanical valve), Tachycardia Gastrointestinal: Normal Bowel Sounds, Non Tender, Soft Back: Other (Laying supine) Extremity: Non Tender, No Calf Tenderness Neurologic/Psychiatric: Alert, Other (Intubated) Results/Procedures Lab Laboratory Tests 04/17/21 04:57 Patient resulted labs reviewed. Assessment/Plan Assessment and Plan Assess & Plan/Chief Complaint Assessment: Septic shock Respiratory failure intubated in ER Severe hyperkalemia (resolved (4.0) Chronic kidney disease End-stage liver disease Ascites receiving paracentesis often at Possible SBP placed on Levaquin renal dosed Paroxysmal atrial fibrillation Aortic valve replacement Plan: Will try to Extubate today Continue antiobiotics Currently requiring Levophed, begin weaning pressor if able Appreciate Cardiology Prognosis guarded ROMINA ARREDONDO DO 04/18/21 0541: Subjective Subjective/Events-last exam Pt had an uneventful hospital course for 4 days after she was emergently admitted. After transferring from [place] [facility] for what appeared to be a ST elevation LA but ended up being hyperkalemia with potassium 7.2 with acute kidney injury. Requiring aggressive management of that. No need for cardiac catheterization but she was maintained on intubation. She did have an episode of atrial flutter. She remained tachycardic requiring Levaquin for empiric coverage of SBP since she does receive paracentesis twice weekly at . Creatinine returned back to normal at 0.9. ABG was 7.43/39/83. She was gonna be a difficult extubation due to pulmonary hypertension, so was contacted and she remains stable. Objective Exam General Appearance: Anxious, Chronically ill Respiratory: No Accessory Muscle Use, No Respiratory Distress, Decreased Breath Sounds Cardiovascular: Regular Rate, Rhythm, Systolic Murmur (Aortic murmur secondary to mechanical valve), Tachycardia Neurologic/Psychiatric: Alert Assessment/Plan Assessment and Plan Assess & Plan/Chief Complaint Await transfer to for acceptance Supervisory-Addendum Brief Verification & Attestation Participated in pt care: history, MDM, physical Personally performed: exam, history, MDM, supervision of care Care discussed with: Medical Student Procedures: n/a Results interpretation: Verified all documentation Verification and Attestation of Medical Student E/M Service A medical student performed and documented this service in my presence. I reviewed and verified all information documented by the medical student and made modifications to such information, when appropriate. I personally performed the physical exam and medical decision making. Romina Arredondo, Apr 18, 2021,05:40 [facility] Apr 17, 2021 10:46 ROMINA ARREDONDO DO Apr 18, 2021 05:41
[2021-04-17] MEDS: FUROSEMIDE INJECTION 120 MG in D5W 100 ML IVPB 100 ML IV SCH (10:48)
[2021-04-17] MEDS: NOREPINEPHRINE 8 MG/250 ML 250 ML IV SCH (11:25)
[2021-04-17] MEDS ORDERED: D5W IV SOLUTION (EXCEL) 0 ML IV ONE (15:48)
[2021-04-17] MEDS: AMIODARONE INJECTION 450 MG in D5W IV SOLUTION (EXCEL) 250 ML IV SCH (16:26)
[2021-04-18] VITALS (29 sets, daily range): BP systolic 92–112; BP diastolic 58–70
[2021-04-18] MEDS: AMIODARONE INJECTION 450 MG in D5W IV SOLUTION (EXCEL) 250 ML IV SCH ×2 (00:19→15:17)
[2021-04-18] MEDS: fentaNYL DRIP PRE-MIX 250 ML IV SCH ×4 (03:49→20:33)
[2021-04-18 04:37] LABS: BASOPHILS % (AUTO) 0 % (0-10); EOSINOPHILS # (AUTO) 0.2 10^3/uL (0.0-0.3); EOSINOPHILS % (AUTO) 3 % (0-10); HEMATOCRIT 35 % (35-52); HEMOGLOBIN 11.5 g/dL (11.5-16.0); LYMPHOCYTES # (AUTO) 0.9 10^3/uL (1.0-4.0); LYMPHOCYTES % (AUTO) 9 % (12-44); MEAN CORPUSCULAR HEMOGLOBIN 31 pg (25-34); MEAN CORPUSCULAR HGB CONC 33 g/dL (32-36); MEAN CORPUSCULAR VOLUME 92 fL (80-99); MEAN PLATELET VOLUME 8.9 fL (9.0-12.2); MONOCYTES # (AUTO) 0.8 10^3/uL (0.0-1.0); MONOCYTES % (AUTO) 8 % (0-12); NEUTROPHILS # (AUTO) 7.7 10^3/uL (1.8-7.8); NEUTROPHILS % (AUTO) 80 % (42-75); PLATELET COUNT 193 10^3/uL (130-400); WHITE BLOOD COUNT 9.6 10^3/uL (4.3-11.0)
[2021-04-18 04:49] LABS: ALBUMIN 2.4 GM/DL (3.2-4.5); POTASSIUM 3.4 MMOL/L (3.6-5.0)
[2021-04-18 04:51] LABS: CALCIUM 7.6 MG/DL (8.5-10.1)
[2021-04-18 04:51] LABS: ABG OXYGEN SATURATION 97 % (94-100); ABG PCO2 37 MMHG (35-45); ABG PH 7.49 (7.37-7.43); ABG PO2 80 MMHG (79-93); ABG TCO2 28.4 MMOL/L (21.0-31.0); ALLENS TEST YES-POS; INSPIRED O2 30%
[2021-04-18 04:52] LABS: PATIENT TEMP 37.3; VENTILATOR YES
[2021-04-18 04:52] LABS: TOTAL PROTEIN 4.8 GM/DL (6.4-8.2)
[2021-04-18 04:54] LABS: BILIRUBIN,TOTAL 2.6 MG/DL (0.1-1.0)
[2021-04-18 04:55] LABS: PHOSPHORUS 2.1 MG/DL (2.3-4.7)
[2021-04-18 04:56] LABS: CREATININE SERUM 0.81 MG/DL (0.60-1.30)
[2021-04-18 04:59] LABS: MAGNESIUM 1.6 MG/DL (1.6-2.4)
[2021-04-18] MEDS: MAGNESIUM 1 GM/100 ML IVPB 100 ML IV SCH ×3 (05:08→06:14)
[2021-04-18] MEDS: POTASSIUM CL 10MEQ/50ML IVPB 50 ML IV SCH ×4 (05:08→08:17)
[2021-04-18] MEDS: KCL 20 MEQ TAB (K-DUR) PO SCH (05:09)
--- NOTE | 2021-04-18 06:53 | Occ Therapy Progress Note ---
Therapy Progress Note Pt is currently intubated. OT to monitor pt's status and will initiate treatment when pt is medically stable and able to actively participate in skilled therapy. FRANCISCO JAVIER REGALADO Apr 18, 2021 06:53
--- NOTE | 2021-04-18 07:12 | Diagnostic Imaging Report ---
Reason for examination: Pneumonia. Semiupright AP portable chest was obtained and compared to yesterday. Heart size is stable with a left subclavian central line again noted, an NG tube and an endotracheal tube tip between the clavicles and tyra. The patient has had a median sternotomy and prior valve repair. Pulmonary congestion has worsened with increasing right lower lobe infiltrate or edema. Left lower lobe is unchanged. No pneumothorax. There is probably a component of right pleural effusion as well. IMPRESSION: 1. Cardiomegaly with postop changes. Support lines and tubes are in good position where visible. 2. Worsening central pulmonary vascular congestion with increased right lower lobe edema or infiltrate. Probably also a component of right pleural effusion. Dictated by: Dictated on workstation # [id number]
--- NOTE | 2021-04-18 07:52 | Physical Therapy Progress Note ---
Therapy Progress Note Patient currently intubated. PT will monitor patient status and initiate treatment when patient is able to actively participate with skilled therapy. TIEN MEEHAN PT Apr 18, 2021 07:51
[2021-04-18] MEDS: SODIUM BICARBONATE 8.4% VIAL 100 MEQ in 1/2 NS IV SOLUTION 1,000 ML IV SCH ×2 (08:00→09:26)
[2021-04-18] MEDS: PANTOPRAZOLE 40 MG (PROTONIX) VIAL IV SCH (08:17)
[2021-04-18] MEDS: LACTULOSE SYRUP 10GM/15ML (ENULOSE) 30ML UDC NG SCH ×3 (08:17→20:32)
[2021-04-18] MEDS: FUROSEMIDE INJECTION 120 MG in D5W 100 ML IVPB 100 ML IV SCH ×2 (08:18→17:36)
[2021-04-18] MEDS ORDERED: NS IV 1000 ML 1,000 ML ONE (09:23)
--- NOTE | 2021-04-18 09:23 | Cardiology Progress Note ---
Progress Note-Cardiology Events since last exam Date Seen by Provider: Apr 18, 2021 Time Seen by Provider: 09:21 Events since last exam I am seeing the patient due to heart failure and atrial fibrillation. She re sidney intubated and sedated but opens eyes to voice and nods to questions. She underwent an attempt at a ventilator weaning trial on 04/17 but developed agitation and tachycardia and had to be placed back on increased sedation. She has had intermittent tachycardia. I am not able to get any history from the patient due to her intubated status. I did speak to her nurse and son at the bedside. We have been attempting to transfer the patient to [facility] but they do not have any intensive care unit beds. Certain portions of this document may have been dictated utilizing voice recognition technology. Inherent to this technology, typographical and grammatical errors may exist. As much as I am diligent to identify and correct these mistakes, some errors may remain in the document. Vitals Last set of Vitals Signs Vital Signs 04/18/21 04/18/21 04/18/21 10:00 10:37 11:47 Temp 37.6 Pulse 98 Resp 24 B/P (MAP) 102/65 (77) Pulse Ox 96 O2 Delivery Mechanical Ventilator O2 Flow Rate 30.00 FiO2 30 Labs Labs Laboratory Tests 04/17/21 13:35 04/18/21 04:25 Exam Vital Signs Vital Signs Date Time Temp Pulse Resp B/P (MAP) Pulse Ox O2 Delivery O2 Flow Rate FiO2 04/18/21 11:47 37.6 04/18/21 10:37 98 24 96 30 04/18/21 10:00 102/65 (77) Mechanical Ventilator 30.00 Physical Exam General: Intubated but awake. Well nourished and appears older than her stated age. Eye: Conjunctivae are clear. There are no xanthelasma. HENT: Normocephalic. Atraumatic. Carotid pulsations 2/2 without bruits. Neck: Jugular venous pressure does not appear elevated. No thyromegaly a ppreciated. Respiratory: Symmetrical expansion bilaterally. Coarse breath sounds due to the ventilator. Cardiovascular: Normal rate. Irregular rhythm. Metallic S2. 3/6 systolic ejection murmur. No gallop. Point of maximal impulse is not appear displaced. Good pulses equal in all extremities. No edema. Gastrointestinal: Soft. Normal bowel sounds. Skin: Skin turgor is normal. There is no pallor. Musculoskeletal: No obvious deformities. Neurologic: Intubated but awake. She seems to be moving all 4 extremities. Psychiatric: Sedated but arousable to voice. Labs Laboratory Tests Test 04/17/21 13:34 04/17/21 13:35 04/17/21 18:00 04/17/21 18:02 Range/Units Activated Partial Thromboplast Time 93 H 73 H 24-35 SEC Potassium Level 4.1 3.6-5.0 MMOL/L Glucometer 104 70-110 MG/DL Test 04/18/21 00:14 04/18/21 00:27 04/18/21 04:25 04/18/21 04:40 Range/Units Activated Partial Thromboplast Time 80 H 24-35 SEC Glucometer 103 70-110 MG/DL White Blood Count 9.6 4.3-11.0 10^3/uL Red Blood Count 3.75 L 3.80-5.11 10^6/uL Hemoglobin 11.5 11.5-16.0 g/dL Hematocrit 35 35-52 % Mean Corpuscular Volume 92 80-99 fL Mean Corpuscular Hemoglobin 31 25-34 pg Mean Corpuscular Hemoglobin Concent 33 32-36 g/dL Red Cell Distribution Width 19.3 H 10.0-14.5 % Platelet Count 193 130-400 10^3/uL Mean Platelet Volume 8.9 L 9.0-12.2 fL Immature Granulocyte % (Auto) 1 % Neutrophils (%) (Auto) 80 H 42-75 % Lymphocytes (%) (Auto) 9 L 12-44 % Monocytes (%) (Auto) 8 0-12 % Eosinophils (%) (Auto) 3 0-10 % Basophils (%) (Auto) 0 0-10 % Neutrophils # (Auto) 7.7 1.8-7.8 10^3/uL Lymphocytes # (Auto) 0.9 L 1.0-4.0 10^3/uL Monocytes # (Auto) 0.8 0.0-1.0 10^3/uL Eosinophils # (Auto) 0.2 0.0-0.3 10^3/uL Basophils # (Auto) 0.0 0.0-0.1 10^3/uL Immature Granulocyte # (Auto) 0.1 0.0-0.1 10^3/uL Sodium Level 137 135-145 MMOL/L Potassium Level 3.4 L 3.6-5.0 MMOL/L Chloride Level 102 98-107 MMOL/L Carbon Dioxide Level 24 21-32 MMOL/L Anion Gap 11 5-14 MMOL/L Blood Urea Nitrogen 14 7-18 MG/DL Creatinine 0.81 0.60-1.30 MG/DL Estimat Glomerular Filtration Rate 84 BUN/Creatinine Ratio 17 Glucose Level 120 H 70-105 MG/DL Calcium Level 7.6 L 8.5-10.1 MG/DL Corrected Calcium 8.9 8.5-10.1 MG/DL Phosphorus Level 2.1 L 2.3-4.7 MG/DL Magnesium Level 1.6 1.6-2.4 MG/DL Total Bilirubin 2.6 H 0.1-1.0 MG/DL Aspartate Amino Transf (AST/SGOT) 48 H 5-34 U/L Alanine Aminotransferase (ALT/SGPT) 26 0-55 U/L Alkaline Phosphatase 165 H 40-136 U/L Total Protein 4.8 L 6.4-8.2 GM/DL Albumin 2.4 L 3.2-4.5 GM/DL Blood Gas Puncture Site RIGHT RADIAL Blood Gas Patient Temperature 37.3 Arterial Blood pH 7.49 H 7.37-7.43 Arterial Blood Partial Pressure CO2 37 35-45 MMHG Arterial Blood Partial Pressure O2 80 79-93 MMHG Arterial Blood HCO3 27 23-27 MMOL/L Arterial Blood Total CO2 28.4 21.0-31.0 MMOL/L Arterial Blood Oxygen Saturation 97 94-100 % Arterial Blood Base Excess 4.0 H -2.5-2.5 MMOL/L Joshua Test YES-POS Blood Gas Ventilator Setting YES Blood Gas Inspired Oxygen 30% Test 04/18/21 06:40 04/18/21 10:58 Range/Units Activated Partial Thromboplast Time 77 H 24-35 SEC Glucometer 128 H 70-110 MG/DL Diagnosis/Problems Diagnosis/Problems (1) Acute on chronic heart failure with preserved ejection fraction (HFpEF) Assessment & Plan: She probably has some degree of acute on chronic pulmonary congestion. She also has superimposed severe pulmonary hypertension. She did receive intravenous fluid resuscitation. Her chest x-ray from this morning shows worsening pulmonary congestion. I will increase her furosemide infusion. She was on spironolactone 75 mg twice daily at home. This may have contributed to her hypokalemia that was present at the time of admission. She has now been having problems with low potassium. I will restart a low-dose of spironolactone. This may also help with her ascites. (2) Paroxysmal atrial fibrillation Assessment & Plan: She has a history of paroxysmal atrial fibrillation. Heart rates continue to be elevated at times even despite intravenous amiodarone which was started on 04/17. She may develop intermittent tachycardia during weaning trials of sedation and the ventilator. I have her on intravenous heparin due to the aortic valve replacement. If we have her undergo a paracentesis later today, then I would consider getting her back on her home dose of warfarin. (3) Shock Assessment & Plan: Exact etiology unclear. She has multiple metabolic derangements and I suspect superimposed sepsis. However, her ejection fraction is normal and she has a mechanical aortic valve prosthesis that appears to be functioning normally which makes cardiogenic shock unlikely. The nurses continue to attempt to wean norepinephrine. (4) Complete heart block Assessment & Plan: Now resolved. She appears as though she may have an ectopic atrial rhythm versus underlying atrial fibrillation at the time of admission and then developed complete heart block that required temporary external pacing. This may have been related to the severe hyperkalemia that has now improved with treatment. (5) Pulmonary hypertension Assessment & Plan: Her echocardiogram from 04/14 shows severe pulmonary hyper tension that is of unknown etiology and this is known to be chronic. This may complicate weaning from the ventilator. (6) History of aortic valve replacement with metallic valve Assessment & Plan: Her echocardiogram echocardiogram from 04/14 showed what a ppears to be a probable St Edi aortic valve that appears to be functioning normally without significant stenosis or regurgitation. I have her on intravenous heparin due to the mechanical aortic valve. Ultimately, she will need to get back on her warfarin as outlined above. (7) Acute on chronic respiratory failure with hypoxia and hypercapnia Assessment & Plan: Exact etiology unclear. I suspect this is multifactorial but not with a significant amount of heart failure. This is being managed by the hospitalist and brush machine setter. Weaning trials from the ventilator are in process. (8) Acute kidney injury superimposed on chronic kidney disease Assessment & Plan: This may have caused or at least contributed to the hyperkalemia. Her most recent baseline creatinine appears to be somewhere around 1.2. This has improved. (9) Hyperkalemia Status: Acute Assessment & Plan: This has improved and now she has been having low potassium levels probably related to the intravenous furosemide infusion. As above, the previous hyperkalemia may at least be partially due to the acute kidney injury on chronic kidney disease on top of taking potassium supplementation and spironolactone at home. (10) Unresponsive Status: Acute Assessment & Plan: This seems to be resolving. Etiology unclear. Her urine toxicology screen was unremarkable and her head CT did not show any abnormali ties to explain unresponsiveness. DUTCH MORILLO JR, MD Apr 18, 2021 09:23
--- NOTE | 2021-04-18 09:42 | Diagnostic Imaging Report ---
INDICATION: Ascites. Sonographic interrogation of all 4 quadrants of the abdomen was performed. There is moderate ascites in all 4 quadrants. Largest pocket appears to be in the left lower quadrant. This was marked on the patient's skin for Dr. Riggins for performance of paracentesis. IMPRESSION: Large ascites. Marking was provided left lower quadrant for performance of paracentesis. Dictated by: Dictated on workstation # [id number]
[2021-04-18] MEDS: FLUCONAZOLE 200 MG/100 ML 50 ML, EMPTY IV BAG (PVC) 1 EA IV SCH ×2 (09:55)
--- NOTE | 2021-04-18 10:17 | Tele-ICU Progress Note ---
Subjective Date Seen by a Provider: Apr 18, 2021 Time Seen by a Provider: 08:57 Sepsis Event Evaluation Height, Weight, BMI Height: '" Weight: lbs. oz. kg; 21.00 BMI Method: Exam Exam Patient acknowledged, consented, and participated in this virtual visit which was conducted using real time audio/video Vital Signs Date Time Temp Pulse Resp B/P (MAP) Pulse Ox O2 Delivery O2 Flow Rate FiO2 04/18/21 09:00 100 24 96/62 (73) 97 Mechanical Ventilator 30.00 04/18/21 08:00 100 24 102/62 (75) 97 Mechanical Ventilator 30.00 04/18/21 07:54 37.0 04/18/21 07:00 99 24 104/62 (76) 97 Mechanical Ventilator 30.00 04/18/21 07:00 99 04/18/21 06:56 99 25 97 30 04/18/21 06:00 99 24 108/63 (78) 97 Mechanical Ventilator 30.00 04/18/21 05:00 105 16 112/65 (81) 95 Mechanical Ventilator 30.00 04/18/21 04:00 37.3 04/18/21 04:00 94 Mechanical Ventilator 30 04/18/21 04:00 98 16 107/70 (82) 100 Mechanical Ventilator 30.00 04/18/21 03:00 98 16 98/63 (75) 100 Mechanical Ventilator 30.00 04/18/21 02:31 101 23 100 30 04/18/21 02:00 98 16 102/66 (78) 100 Mechanical Ventilator 30.00 04/18/21 01:00 107 04/18/21 01:00 107 16 92/58 (69) 100 Mechanical Ventilator 30.00 04/18/21 00:00 36.9 04/18/21 00:00 96 16 99/61 (74) 100 Mechanical Ventilator 30.00 04/17/21 23:59 94 Mechanical Ventilator 30 04/17/21 23:12 96 22 92 30 04/17/21 23:10 97 102/58 04/17/21 23:00 98 16 94/58 (73) 100 Mechanical Ventilator 30.00 04/17/21 22:00 97 16 94/65 (75) 98 Mechanical Ventilator 30.00 04/17/21 21:00 97 16 96/66 (76) 98 Mechanical Ventilator 30.00 04/17/21 20:00 36.7 04/17/21 20:00 98 16 97/65 (76) 100 Mechanical Ventilator 30.00 04/17/21 20:00 94 Mechanical Ventilator 30 04/17/21 19:00 102 04/17/21 19:00 102 16 95/65 (75) 100 Mechanical Ventilator 30.00 04/17/21 18:53 98 22 97 30 04/17/21 18:00 100 107/71 (83) 100 Mechanical Ventilator 30.00 04/17/21 17:00 101 106/71 (83) 100 Mechanical Ventilator 30.00 04/17/21 16:00 96 Mechanical Ventilator 30 04/17/21 16:00 142 22 103/74 (84) 98 Mechanical Ventilator 30.00 04/17/21 16:00 37.4 04/17/21 15:25 149 24 97 30 04/17/21 15:00 149 23 110/76 (87) 96 Mechanical Ventilator 30.00 04/17/21 14:00 152 112/80 (91) 95 Mechanical Ventilator 30.00 04/17/21 13:00 147 36 106/73 (84) 95 Mechanical Ventilator 30.00 04/17/21 12:44 146 04/17/21 12:00 146 20 103/72 (82) 95 Mechanical Ventilator 30.00 04/17/21 12:00 96 Mechanical Ventilator 30 04/17/21 12:00 37.6 04/17/21 11:25 146 104/72 04/17/21 11:00 146 20 104/72 (83) 95 Mechanical Ventilator 30.00 I & O 04/18/21 07:00 Intake Total 800 ml Output Total 2500 ml Balance -1700 ml Height & Weight Height: '" Weight: lbs. oz. kg; 21.00 BMI Method: General Appearance: Anxious, Chronically ill HEENT: PERRL/EOMI, Normal ENT Inspection (No gross deformities, but intubated with OG tube) Neck: Non Tender, Supple Respiratory: No Accessory Muscle Use, No Respiratory Distress, Decreased Breath Sounds Cardiovascular: Regular Rate, Rhythm, Systolic Murmur (Aortic murmur secondary to mechanical valve), Tachycardia Capillary Refill: Less Than 3 Seconds Extremity: Non Tender, No Calf Tenderness Neurologic/Psychiatric: Alert Skin: Normal Color, Warm/Dry Lymphatic: No Adenopathy (Supraclavicular) Results Lab Laboratory Tests 04/17/21 04:57 04/17/21 13:35 04/18/21 04:25 Assessment/Plan Assessment/Plan (Tele-ICU Physician , Progress Note ) Available chart/ vitals / labs / Images reviewed Video assessment done using teleICU camera, rest of exam as per RN Discussed with RN , EXAM PER RN Events overnight : febrile 37 FiO2 - 30 I/O = neg 5400 Drips: bicarb , heparin , NS Pressors: LEVO hemodynamically stable Sedation gtt: ( RASS -2 ) prx 0.7, prop , fent 175 VENT SETTINGS and ABG reviewed Not candidate for SBT today REVIEWED Cardiovascular Stability / Sedation Score / FI02/PEEP / ABG / CXR Consultants: shanel Hospital course: 04/17 - AFIB RVR A/P Acute resp failure - in vent 30% - will assess for liberation today - developed intermittent tachycardia during weaning trials of sedation and the ventilator. -decrease sedation today - UNLIKELY TO BE EXTUBATED TODAY - CXR IS WORSENIGN STARTIONG ON 04/16 - INCREASING EFFUSION AND POSSIBLE INFILTRATES R>L - WILL ATTEMPT MORE DIURESIS - might need thoracentesis A/Ch CHF - EF 70 % - as per cards - will stop IVF with improved Cr and negative 6 L urine output and pulm HTN - lasix gtt 04/17 - FLUID STATUS NEGATIVE - >TO CONT Shock - cards vs other - weaning down LEVO 0,7 - cortisol= 20 on 04/16 Pulm HTN - severe as per ECHO -- RBSP 90 mm Hg etiology to be established , cont AC - as per cards - discussed with Dr Queen - patient is followed in [facility] ( but not on any meds for pulnm HTN AVR with metallic valve - on heparin GTT LEONORA- improved , will decrease bicarb gtt with goal to stop soon ID - on levofloxacin empiric 04/14 - cx neg AMS change - CTH neg -tox screen neg , ammonia WNL -follow closely with decreasing seation Chirrosis - plans for paracentesis 04/17 Lines : Scl LEFT (Central Line Necessity Reviewed) Trevino: + OG: Nutrition: TF to start 04/16 Analgesia: Anxiety/ delirium VTE Prophylaxis: hep gtt Stress Ulcer Prophylaxis: Glycemic Control: Plans in collaboration with bedside consultants and IM MDs. Discussed with RN to reach out if any questions or concerns A total of 33 minutes of critical care time was devoted to this patient today, required to treat and/or prevent further deterioration of critical care condition ( as above) . ROBBIE MILLER MD Apr 18, 2021 10:17
--- NOTE | 2021-04-18 11:57 | Progress Note - Hospitalist ---
[facility] 04/18/21 1157: Subjective HPI/CC On Admission Date Seen by Provider: Apr 18, 2021 Time Seen by Provider: 09:00 Chief complaint: Septic shock with respiratory failure History of present illness: This is a 61-year-old white female who was transferred to the nearest cardiac [facility] instead of her usual [facility] med admission due to what appeared to be an ST elevation CA. She was diagnosed with shock and intubated for airway safety. She was found to have potassium of 7.2 giving rise to what appeared to be a STEMI but it was not. Dr. Queen had been in the ER awaiting her arrival. Considering no STEMI she was admitted to ICU with septic shock possibly from SBP considering UA and chest x-ray were within normal limits. She appears to be very debilitated and I did review [facility] records and she receives paracenteses on a regular basis due to end-stage liver disease and she had been holding her Coumadin due to requiring the procedure. Her INR was 1.6. Echocardiogram revealed severely elevated PA pressure so heparin drip was initiated due to suspicion for massive PE. Chronic kidney disease precluded angiogram to confirm suspicion of PE. She does have paroxysmal atrial fibril lation. After pancultured she was placed on Levaquin for SBP coverage. Patient appears to be very end-of-life. Subjective/Events-last exam Patient intubated and following simple commands Pleural effusion noticed on X-ray and confirmed on ultrasound UA culture revealed Yeast Objective Exam Vital Signs Vital Signs Date Time Temp Pulse Resp B/P (MAP) Pulse Ox O2 Delivery O2 Flow Rate FiO2 04/18/21 11:47 37.6 04/18/21 10:37 98 24 96 30 04/18/21 10:00 102/65 (77) Mechanical Ventilator 30.00 Capillary Refill : Less Than 3 Seconds General Appearance: Chronically ill, Other (Intubated and alert) HEENT: PERRL/EOMI, Normal ENT Inspection (Except for intubation and OG tube) Neck: Normal Inspection (Does have central line in left subclavian) Respiratory: No Accessory Muscle Use, No Respiratory Distress, Other (Minimally coarse breath sounds, much improved) Cardiovascular: Normal Peripheral Pulses (2+ radial pulses bilaterally), Systolic Murmur, Tachycardia Gastrointestinal: Non Tender, Soft Extremity: Non Tender, No Calf Tenderness Neurologic/Psychiatric: Alert, Other (Intubated) Skin: Normal Color Results/Procedures Lab Laboratory Tests 04/17/21 13:35 04/18/21 04:25 Patient resulted labs reviewed. Assessment/Plan Assessment and Plan Assess & Plan/Chief Complaint Assessment: Fungal UTI Pleural effusion Septic shock Respiratory failure intubated in ER Severe hyperkalemia (resolved (4.0) Chronic kidney disease End-stage liver disease Ascites receiving paracentesis often at [facility] Possible SBP placed on Levaquin renal dosed Paroxysmal atrial fibrillation Aortic valve replacement Plan: Thoracentesis for pleural effusion, consult gen surg Diflucan for UTI [facility] not accepting Transfer Continue antiobiotics Currently requiring Levophed, Requiring less pressor Appreciate Cardiology Prognosis guarded ROMINA ARREDONDO DO 04/19/21 0540: Subjective Subjective/Events-last exam Pt doing about the same Yeast UTI will require Diflucan On Amiodarone drip On Lasix drip On Heparin drip Levophed maintained Dr. Riggins will perform paracentesis Objective Exam General Appearance: Chronically ill, Other (Intubated and alert) Respiratory: No Accessory Muscle Use, No Respiratory Distress, Decreased Breath Sounds Cardiovascular: Systolic Murmur, Tachycardia Neurologic/Psychiatric: Alert Assessment/Plan Assessment and Plan Assess & Plan/Chief Complaint Paracentesis Ventilator management appreciated Try to wean Supervisory-Addendum Brief Verification & Attestation Participated in pt care: history, MDM, physical Personally performed: exam, history, MDM, supervision of care Care discussed with: Medical Student Procedures: n/a Results interpretation: Verified all documentation Verification and Attestation of Medical Student E/M Service A medical student performed and documented this service in my presence. I reviewed and verified all information documented by the medical student and made modifications to such information, when appropriate. I personally performed the physical exam and medical decision making. Romina Arredondo, Apr 19, 2021,05:39 [facility] Apr 18, 2021 11:57 ROMINA ARREDONDO DO Apr 19, 2021 05:40
[2021-04-18] MEDS ORDERED: SPIRONOLACTONE 25 MG (ALDACTONE) TAB PO NR (14:00)
[2021-04-18] MEDS: HEParin DRIP 25000 UNIT/500ML 500 ML IV SCH (15:24)
--- NOTE | 2021-04-18 17:10 | Progress Note ---
Subjective Date Seen by a Provider: Apr 18, 2021 Time Seen by a Provider: 17:00 Subjective/Events-last exam recurrent sx ascites due to liver CAPELLAN. cardiogenic shock. Objective Exam Vital Signs Date Time Temp Pulse Resp B/P (MAP) Pulse Ox O2 Delivery O2 Flow Rate FiO2 04/18/21 16:00 99 24 101/65 (77) 96 Mechanical Ventilator 30.00 04/18/21 15:40 37.8 04/18/21 15:33 95 Mechanical Ventilator 30 04/18/21 15:00 99 24 101/65 (77) 96 Mechanical Ventilator 30.00 04/18/21 14:43 98 25 95 30 04/18/21 14:00 98 24 98/66 (77) 96 Mechanical Ventilator 30.00 04/18/21 13:00 98 04/18/21 13:00 98 24 101/66 (78) 96 Mechanical Ventilator 30.00 04/18/21 12:00 95 Mechanical Ventilator 30 04/18/21 12:00 98 26 101/68 (79) 96 Mechanical Ventilator 30.00 04/18/21 11:47 37.6 04/18/21 11:00 98 26 96/64 (75) 97 Mechanical Ventilator 30.00 04/18/21 10:37 98 24 96 30 04/18/21 10:00 100 26 102/65 (77) 97 Mechanical Ventilator 30.00 04/18/21 09:00 100 24 96/62 (73) 97 Mechanical Ventilator 30.00 04/18/21 08:00 100 24 102/62 (75) 97 Mechanical Ventilator 30.00 04/18/21 08:00 95 Mechanical Ventilator 30 04/18/21 07:54 37.0 04/18/21 07:00 99 24 104/62 (76) 97 Mechanical Ventilator 30.00 04/18/21 07:00 99 04/18/21 06:56 99 25 97 30 04/18/21 06:00 99 24 108/63 (78) 97 Mechanical Ventilator 30.00 04/18/21 05:00 105 16 112/65 (81) 95 Mechanical Ventilator 30.00 04/18/21 04:00 37.3 04/18/21 04:00 94 Mechanical Ventilator 30 04/18/21 04:00 98 16 107/70 (82) 100 Mechanical Ventilator 30.00 04/18/21 03:00 98 16 98/63 (75) 100 Mechanical Ventilator 30.00 04/18/21 02:31 101 23 100 30 04/18/21 02:00 98 16 102/66 (78) 100 Mechanical Ventilator 30.00 04/18/21 01:00 107 04/18/21 01:00 107 16 92/58 (69) 100 Mechanical Ventilator 30.00 04/18/21 00:00 36.9 04/18/21 00:00 96 16 99/61 (74) 100 Mechanical Ventilator 30.00 04/17/21 23:59 94 Mechanical Ventilator 30 04/17/21 23:12 96 22 92 30 04/17/21 23:10 97 102/58 04/17/21 23:00 98 16 94/58 (73) 100 Mechanical Ventilator 30.00 04/17/21 22:00 97 16 94/65 (75) 98 Mechanical Ventilator 30.00 04/17/21 21:00 97 16 96/66 (76) 98 Mechanical Ventilator 30.00 04/17/21 20:00 36.7 04/17/21 20:00 98 16 97/65 (76) 100 Mechanical Ventilator 30.00 04/17/21 20:00 94 Mechanical Ventilator 30 04/17/21 19:00 102 04/17/21 19:00 102 16 95/65 (75) 100 Mechanical Ventilator 30.00 04/17/21 18:53 98 22 97 30 04/17/21 18:00 100 107/71 (83) 100 Mechanical Ventilator 30.00 I & O 04/18/21 07:00 Intake Total 800 ml Output Total 2500 ml Balance -1700 ml Capillary Refill : Less Than 3 Seconds General Appearance: No Apparent Distress HEENT: TMs Normal Neck: Full Range of Motion Respiratory: Decreased Breath Sounds, Rhonci, Wheezing Cardiovascular: Regular Rate, Rhythm Gastrointestinal: soft, distended Extremity: Normal Capillary Refill Neurologic/Psychiatric: Other (vent/sedated) Skin: Normal Color Lymphatic: No Adenopathy Results Lab Laboratory Tests 04/17/21 18:00: Activated Partial Thromboplast Time 73H 04/17/21 18:02: Glucometer 104 04/18/21 00:14: Activated Partial Thromboplast Time 80H 04/18/21 00:27: Glucometer 103 04/18/21 04:25: White Blood Count 9.6, Red Blood Count 3.75L, Hemoglobin 11.5, Hematocrit 35, Mean Corpuscular Volume 92, Mean Corpuscular Hemoglobin 31, Mean Corpuscular Hemoglobin Concent 33, Red Cell Distribution Width 19.3H, Platelet Count 193, Mean Platelet Volume 8.9L, Immature Granulocyte % (Auto) 1, Neutrophils (%) (Auto) 80H, Lymphocytes (%) (Auto) 9L, Monocytes (%) (Auto) 8, Eosinophils (%) (Auto) 3, Basophils (%) (Auto) 0, Neutrophils # (Auto) 7.7, Lymphocytes # (Auto) 0.9L, Monocytes # (Auto) 0.8, Eosinophils # (Auto) 0.2, Basophils # (Auto) 0.0, Immature Granulocyte # (Auto) 0.1, Sodium Level 137, Potassium Level 3.4L, Chloride Level 102, Carbon Dioxide Level 24, Anion Gap 11, Blood Urea Nitrogen 14, Creatinine 0.81, Estimat Glomerular Filtration Rate 84, BUN/Creatinine Ratio 17, Glucose Level 120H, Calcium Level 7.6L, Corrected Calcium 8.9, Phosphorus Level 2.1L, Magnesium Level 1.6, Total Bilirubin 2.6H, Aspartate Amino Transf (AST/SGOT) 48H, Alanine Aminotransferase (ALT/SGPT) 26, Alkaline Phosphatase 165H, Total Protein 4.8L, Albumin 2.4L 04/18/21 04:40: Blood Gas Puncture Site RIGHT RADIAL, Blood Gas Patient Temperature 37.3, Arterial Blood pH 7.49H, Arterial Blood Partial Pressure CO2 37, Arterial Blood Partial Pressure O2 80, Arterial Blood HCO3 27, Arterial Blood Total CO2 28.4, Arterial Blood Oxygen Saturation 97, Arterial Blood Base Excess 4.0H, Joshua Test YES-POS, Blood Gas Ventilator Setting YES, Blood Gas Inspired Oxygen 30% 04/18/21 06:40: Activated Partial Thromboplast Time 77H 04/18/21 10:58: Glucometer 128H Microbiology 04/14/21 MRSA Screen - Final, Complete MRSA not isolated 04/14/21 Blood Culture - Preliminary, Resulted No growth 04/14/21 Urine Culture - Final, Complete YEAST Assessment/Plan Assessment/Plan Assess & Plan/Chief Complaint recurrent sx ascites secondary CAPELLAN. schedule tunneled peritoneal catheter placement. AFSHIN CARMICHAEL MD Apr 18, 2021 17:10
--- NOTE | 2021-04-18 17:11 | Progress Note-Pre Operative ---
Pre-Operative Progress Note H&P Reviewed The H&P was reviewed, patient examined and no changes noted. Date Seen by Provider: Apr 18, 2021 Time Seen by Provider: 17:00 Date H&P Reviewed: Apr 18, 2021 Time H&P Reviewed: 17:00 Pre-Operative Diagnosis: recurrent sx ascites secondary CAPELLAN AFSHIN CARMICHAEL MD Apr 18, 2021 17:11
[2021-04-18] MEDS: NOREPINEPHRINE 8 MG/250 ML 250 ML IV SCH (17:36)
[2021-04-18] MEDS: DexMEDEtomidine 250 ML DRIP 250 ML IV SCH (20:32)
[2021-04-19] VITALS (78 sets, daily range): BP systolic 86–110; BP diastolic 54–73
[2021-04-19] MEDS: FUROSEMIDE INJECTION 120 MG in D5W 100 ML IVPB 100 ML IV SCH ×2 (03:05→13:03)
[2021-04-19] MEDS: fentaNYL DRIP PRE-MIX 250 ML IV SCH ×2 (03:07→08:37)
[2021-04-19 04:58] LABS: BASOPHILS % (AUTO) 0 % (0-10); EOSINOPHILS # (AUTO) 0.2 10^3/uL (0.0-0.3); EOSINOPHILS % (AUTO) 1 % (0-10); HEMATOCRIT 33 % (35-52); HEMOGLOBIN 11.1 g/dL (11.5-16.0); LYMPHOCYTES # (AUTO) 0.9 10^3/uL (1.0-4.0); LYMPHOCYTES % (AUTO) 8 % (12-44); MEAN CORPUSCULAR HEMOGLOBIN 31 pg (25-34); MEAN CORPUSCULAR HGB CONC 34 g/dL (32-36); MEAN CORPUSCULAR VOLUME 91 fL (80-99); MEAN PLATELET VOLUME 9.3 fL (9.0-12.2); MONOCYTES # (AUTO) 0.8 10^3/uL (0.0-1.0); MONOCYTES % (AUTO) 7 % (0-12); NEUTROPHILS # (AUTO) 9.3 10^3/uL (1.8-7.8); NEUTROPHILS % (AUTO) 83 % (42-75); PLATELET COUNT 179 10^3/uL (130-400); WHITE BLOOD COUNT 11.2 10^3/uL (4.3-11.0)
[2021-04-19 05:12] LABS: ABG BASE EXCESS 6.1 MMOL/L (-2.5-2.5); ABG OXYGEN SATURATION 96 % (94-100); ABG PCO2 36 MMHG (35-45); ABG PH 7.52 (7.37-7.43); ABG PO2 72 MMHG (79-93); ABG TCO2 30.4 MMOL/L (21.0-31.0)
[2021-04-19 05:13] LABS: ALLENS TEST YES-POS; INSPIRED O2 30%; PATIENT TEMP 37.6; VENTILATOR YES
[2021-04-19 05:35] LABS: ALBUMIN 2.4 GM/DL (3.2-4.5); POTASSIUM 3.2 MMOL/L (3.6-5.0)
[2021-04-19 05:37] LABS: CALCIUM 7.4 MG/DL (8.5-10.1)
[2021-04-19 05:38] LABS: TOTAL PROTEIN 4.8 GM/DL (6.4-8.2)
[2021-04-19 05:40] LABS: BILIRUBIN,TOTAL 3.1 MG/DL (0.1-1.0)
[2021-04-19 05:41] LABS: CREATININE SERUM 0.87 MG/DL (0.60-1.30)
[2021-04-19 05:44] LABS: MAGNESIUM 1.6 MG/DL (1.6-2.4)
[2021-04-19] MEDS: MAGNESIUM 1 GM/100 ML IVPB 100 ML IV SCH ×3 (05:46→06:44)
[2021-04-19] MEDS: KCL 20 MEQ TAB (K-DUR) PO SCH (05:46)
[2021-04-19] MEDS: POTASSIUM CL 10MEQ/50ML IVPB 50 ML IV SCH ×3 (06:04→08:09)
--- NOTE | 2021-04-19 06:42 | Occ Therapy Progress Note ---
Therapy Progress Note Pt currently intubated. OT to monitor pt's status, will initiate treatment when pt is medically stable and able to actively participate in skilled therapy. FRANCISCO JAVIER REGALADO Apr 19, 2021 06:42
[2021-04-19] MEDS: AMIODARONE INJECTION 450 MG in D5W IV SOLUTION (EXCEL) 250 ML IV SCH ×2 (06:45→20:00)
--- NOTE | 2021-04-19 07:24 | Physical Therapy Progress Note ---
Therapy Progress Note Due to patients current status, PT will require new orders to initiate treatment when physician deems patient is medically stable and able to actively participate with skilled therapy. HERMAN KENNY PT Apr 19, 2021 07:24
--- NOTE | 2021-04-19 07:53 | Diagnostic Imaging Report ---
INDICATION: Pneumonia COMPARISON: 04/18/2021 FINDINGS: Single view of the chest demonstrates cardiac enlargement with stable central vascular congestion and bilateral pleural effusions. There is dependent atelectasis. There is no pneumothorax. Support devices are stable. Sternal wires midline. IMPRESSION: Unchanged aeration. Dictated by: Dictated on workstation # [id number]
[2021-04-19] MEDS: FLUCONAZOLE 200 MG/100 ML 50 ML, EMPTY IV BAG (PVC) 1 EA IV SCH ×2 (08:11)
[2021-04-19] MEDS: PANTOPRAZOLE 40 MG (PROTONIX) VIAL IV SCH (08:12)
--- NOTE | 2021-04-19 08:51 | Cardiology Progress Note ---
Progress Note-Cardiology Events since last exam Date Seen by Provider: Apr 19, 2021 Time Seen by Provider: 08:49 Events since last exam I am following her due to heart failure and atrial fibrillation. She remains in the intensive care unit intubated but is awake again this morning. She nods to questions. She was seen by general surgery for consideration of paracentesis but surgery has decided to place a tunneled catheter since the patient requires frequent paracenteses due to her reaccumulating ascites from her liver disease. She remains on Levophed infusion due to shock and amiodarone infusion due to tachycardia from probable atrial fibrillation. I spoke with her nurse at the bedside. No family was present this morning when I saw the patient. Certain portions of this document may have been dictated utilizing voice recognition technology. Inherent to this technology, typographical and gramma tical errors may exist. As much as I am diligent to identify and correct these mistakes, some errors may remain in the document. Vitals Last set of Vitals Signs Vital Signs 04/19/21 04/19/21 04/19/21 08:01 08:27 09:30 Temp 36.9 Pulse 98 Resp 24 B/P (MAP) 94/64 (74) Pulse Ox 94 O2 Delivery Mechanical Ventilator O2 Flow Rate 30.00 FiO2 30 Labs Labs Laboratory Tests 04/19/21 04:36 Exam Vital Signs Vital Signs Date Time Temp Pulse Resp B/P (MAP) Pulse Ox O2 Delivery O2 Flow Rate FiO2 04/19/21 09:30 98 24 94/64 (74) 94 Mechanical Ventilator 30.00 04/19/21 08:27 30 04/19/21 08:01 36.9 Physical Exam General: Intubated but awake. Well nourished and appears older than her stated age. Eye: Conjunctivae are clear. There are no xanthelasma. HENT: Normocephalic. Atraumatic. Carotid pulsations 2/2 without bruits. Neck: Jugular venous pressure does not appear elevated. No thyromegaly appreci ated. Respiratory: Symmetrical expansion bilaterally. Coarse breath sounds due to the ventilator. Cardiovascular: Normal rate. Irregular rhythm. Metallic S2. 3/6 systolic ejection murmur. No gallop. Point of maximal impulse is not appear displaced. Good pulses equal in all extremities. No edema. Gastrointestinal: Soft. Normal bowel sounds. Skin: Skin turgor is normal. There is no pallor. Musculoskeletal: No obvious deformities. Neurologic: Intubated but awake. She seems to be moving all 4 extremities. Psychiatric: Sedated but arousable to voice. Labs Laboratory Tests Test 04/18/21 10:58 04/18/21 17:45 04/19/21 00:01 04/19/21 04:29 Range/Units Glucometer 128 H 106 110 70-110 MG/DL Blood Gas Puncture Site L RAD Blood Gas Patient Temperature 37.6 Arterial Blood pH 7.52 H 7.37-7.43 Arterial Blood Partial Pressure CO2 36 35-45 MMHG Arterial Blood Partial Pressure O2 72 L 79-93 MMHG Arterial Blood HCO3 29 H 23-27 MMOL/L Arterial Blood Total CO2 30.4 21.0-31.0 MMOL/L Arterial Blood Oxygen Saturation 96 94-100 % Arterial Blood Base Excess 6.1 H -2.5-2.5 MMOL/L Joshua Test YES-POS Blood Gas Ventilator Setting YES Blood Gas Inspired Oxygen 30% Test 04/19/21 04:36 Range/Units White Blood Count 11.2 H 4.3-11.0 10^3/uL Red Blood Count 3.62 L 3.80-5.11 10^6/uL Hemoglobin 11.1 L 11.5-16.0 g/dL Hematocrit 33 L 35-52 % Mean Corpuscular Volume 91 80-99 fL Mean Corpuscular Hemoglobin 31 25-34 pg Mean Corpuscular Hemoglobin Concent 34 32-36 g/dL Red Cell Distribution Width 18.9 H 10.0-14.5 % Platelet Count 179 130-400 10^3/uL Mean Platelet Volume 9.3 9.0-12.2 fL Immature Granulocyte % (Auto) 1 % Neutrophils (%) (Auto) 83 H 42-75 % Lymphocytes (%) (Auto) 8 L 12-44 % Monocytes (%) (Auto) 7 0-12 % Eosinophils (%) (Auto) 1 0-10 % Basophils (%) (Auto) 0 0-10 % Neutrophils # (Auto) 9.3 H 1.8-7.8 10^3/uL Lymphocytes # (Auto) 0.9 L 1.0-4.0 10^3/uL Monocytes # (Auto) 0.8 0.0-1.0 10^3/uL Eosinophils # (Auto) 0.2 0.0-0.3 10^3/uL Basophils # (Auto) 0.0 0.0-0.1 10^3/uL Immature Granulocyte # (Auto) 0.1 0.0-0.1 10^3/uL Activated Partial Thromboplast Time 63 H 24-35 SEC Sodium Level 133 L 135-145 MMOL/L Potassium Level 3.2 L 3.6-5.0 MMOL/L Chloride Level 98 98-107 MMOL/L Carbon Dioxide Level 25 21-32 MMOL/L Anion Gap 10 5-14 MMOL/L Blood Urea Nitrogen 13 7-18 MG/DL Creatinine 0.87 0.60-1.30 MG/DL Estimat Glomerular Filtration Rate 77 BUN/Creatinine Ratio 15 Glucose Level 109 H 70-105 MG/DL Calcium Level 7.4 L 8.5-10.1 MG/DL Corrected Calcium 8.7 8.5-10.1 MG/DL Phosphorus Level 2.0 L 2.3-4.7 MG/DL Magnesium Level 1.6 1.6-2.4 MG/DL Total Bilirubin 3.1 H 0.1-1.0 MG/DL Aspartate Amino Transf (AST/SGOT) 41 H 5-34 U/L Alanine Aminotransferase (ALT/SGPT) 23 0-55 U/L Alkaline Phosphatase 143 H 40-136 U/L Total Protein 4.8 L 6.4-8.2 GM/DL Albumin 2.4 L 3.2-4.5 GM/DL Diagnosis/Problems Diagnosis/Problems (1) Acute on chronic heart failure with preserved ejection fraction (HFpEF) Assessment & Plan: She probably has some degree of acute on chronic pulmonary congestion. She also has superimposed severe pulmonary hypertension. She did receive intravenous fluid resuscitation. Her chest x-rays have shown persistent pulmonary congestion. I have her on furosemide infusion. She was on spironolactone 75 mg twice daily at home. This may have contributed to her hyperkalemia that was present at the time of admission. She has now been having problems with low potassium. I restarted a low-dose of spironolactone on 04/18. This may also help with her ascites. (2) Paroxysmal atrial fibrillation Assessment & Plan: She has a history of paroxysmal atrial fibrillation. Heart rates continue to be elevated at times even despite intravenous amiodarone which was started on 04/17. She may develop intermittent tachycardia during weaning trials of sedation and the ventilator. I have her on intravenous heparin due to the aortic valve replacement. Once she has finished with any invasive procedures, she will need to get back on warfarin. For the time being, I recommend continuing the amiodarone infusion to help with the tachycardia. She is not a good candidate for a beta-gulshan since she remains in shock requiring norepinephrine infusion. (3) Shock Assessment & Plan: Exact etiology unclear. This is probably multifactorial. However, her ejection fraction is normal and she has a mechanical aortic valve prosthesis that appears to be functioning normally which makes cardiogenic shock unlikely. The nurses continue to attempt to wean norepinephrine. (4) Complete heart block Assessment & Plan: Now resolved. She appears as though she may have an ectopic atrial rhythm versus underlying atrial fibrillation at the time of admission and then developed complete heart block that required temporary external pacing. This may have been related to the severe hyperkalemia that has now improved with treatment. (5) Pulmonary hypertension Assessment & Plan: Her echocardiogram from 04/14 shows severe pulmonary hyperte nsion that is of unknown etiology but this is known to be chronic. This may complicate weaning from the ventilator. (6) History of aortic valve replacement with metallic valve Assessment & Plan: Her echocardiogram echocardiogram from 04/14 showed what kirti ears to be a probable [employer] Edi aortic valve that appears to be functioning normally without significant stenosis or regurgitation. I have her on intravenous heparin due to the mechanical aortic valve. Ultimately, she will need to get back on her warfarin as outlined above. (7) Acute on chronic respiratory failure with hypoxia and hypercapnia Assessment & Plan: Exact etiology unclear. I suspect this is multifactorial but not with a significant amount of heart failure. This is being managed by the hospitalist and truck trailer mechanic. Weaning trials from the ventilator are in process. (8) Acute kidney injury superimposed on chronic kidney disease Assessment & Plan: This may have caused or at least contributed to the hyperkalemia. Her most recent baseline creatinine appears to be somewhere around 1.2. This has improved and remained stable despite furosemide infusion. DUTCH MORILLO JR, MD Apr 19, 2021 08:51
[2021-04-19] MEDS: LACTULOSE SYRUP 10GM/15ML (ENULOSE) 30ML UDC NG SCH ×3 (09:00→21:25)
[2021-04-19] MEDS: SPIRONOLACTONE 25 MG (ALDACTONE) TAB PO SCH (09:00)
[2021-04-19] MEDS ORDERED: METOCLOPRAMIDE INJ 10 MG/2 ML (REGLAN) IVP PRN (09:15)
--- NOTE | 2021-04-19 09:17 | Tele-ICU Progress Note ---
Subjective Date Seen by a Provider: Apr 19, 2021 Time Seen by a Provider: 09:17 Sepsis Event Evaluation Height, Weight, BMI Height: '" Weight: lbs. oz. kg; 21.00 BMI Method: Exam Exam Patient acknowledged, consented, and participated in this virtual visit which was conducted using real time audio/video Vital Signs Date Time Temp Pulse Resp B/P (MAP) Pulse Ox O2 Delivery O2 Flow Rate FiO2 04/19/21 08:27 94 Mechanical Ventilator 30 04/19/21 08:01 36.9 04/19/21 07:13 101 25 93 30 04/19/21 07:00 103 04/19/21 06:00 37.6 04/19/21 06:00 99 25 102/65 (77) 94 Mechanical Ventilator 30.00 04/19/21 05:00 99 24 101/63 (76) 94 Mechanical Ventilator 30.00 04/19/21 04:00 37.3 04/19/21 04:00 94 Mechanical Ventilator 30 04/19/21 04:00 98 24 101/62 (75) 94 Mechanical Ventilator 30.00 04/19/21 03:00 102 22 106/64 (78) 95 Mechanical Ventilator 30.00 04/19/21 02:40 99 25 95 30 04/19/21 02:00 99 24 104/68 (80) 95 Mechanical Ventilator 30.00 04/19/21 01:00 100 24 101/62 (75) 95 Mechanical Ventilator 30.00 04/19/21 01:00 100 04/19/21 00:00 100 24 100/60 (73) 94 Mechanical Ventilator 30.00 04/19/21 00:00 38.3 04/18/21 23:59 94 Mechanical Ventilator 30 04/18/21 23:00 98 25 106/63 (77) 94 Mechanical Ventilator 30.00 04/18/21 22:00 99 25 99/62 (74) 94 Mechanical Ventilator 30.00 04/18/21 21:21 100 25 94 30 04/18/21 21:00 99 24 102/62 (75) 94 Mechanical Ventilator 30.00 04/18/21 20:32 99 100/64 04/18/21 20:04 38.1 04/18/21 20:00 99 25 100/64 (76) 94 Mechanical Ventilator 30.00 04/18/21 20:00 94 Mechanical Ventilator 30 04/18/21 19:00 100 04/18/21 19:00 98 24 97/63 (74) 95 Mechanical Ventilator 30.00 04/18/21 18:30 99 25 94 30 04/18/21 17:36 99/65 04/18/21 17:00 99 24 96/62 (73) 96 Mechanical Ventilator 30.00 04/18/21 16:00 99 24 101/65 (77) 96 Mechanical Ventilator 30.00 04/18/21 15:40 37.8 04/18/21 15:33 95 Mechanical Ventilator 30 04/18/21 15:00 99 24 101/65 (77) 96 Mechanical Ventilator 30.00 04/18/21 14:43 98 25 95 30 04/18/21 14:00 98 24 98/66 (77) 96 Mechanical Ventilator 30.00 04/18/21 13:00 98 04/18/21 13:00 98 24 101/66 (78) 96 Mechanical Ventilator 30.00 04/18/21 12:00 95 Mechanical Ventilator 30 04/18/21 12:00 98 26 101/68 (79) 96 Mechanical Ventilator 30.00 04/18/21 11:47 37.6 04/18/21 11:00 98 26 96/64 (75) 97 Mechanical Ventilator 30.00 04/18/21 10:37 98 24 96 30 04/18/21 10:00 100 26 102/65 (77) 97 Mechanical Ventilator 30.00 I & O 04/19/21 07:00 Intake Total 540 ml Output Total 4150 ml Balance -3610 ml Height & Weight Height: '" Weight: lbs. oz. kg; 21.00 BMI Method: General Appearance: Chronically ill, Other (Intubated and alert) HEENT: TMs Normal Neck: Full Range of Motion Respiratory: No Accessory Muscle Use, No Respiratory Distress, Decreased Breath Sounds Cardiovascular: Systolic Murmur, Tachycardia Capillary Refill: Less Than 3 Seconds Gastrointestinal: soft, distended Extremity: Normal Capillary Refill Neurologic/Psychiatric: Alert Skin: Normal Color Lymphatic: No Adenopathy Results Lab Laboratory Tests 04/17/21 13:35 04/18/21 04:25 04/19/21 04:36 Assessment/Plan Assessment/Plan (Tele-ICU Physician , Progress Note ) Available chart/ vitals / labs / Images reviewed Video assessment done using teleICU camera, rest of exam as per RN Discussed with RN , EXAM PER RN Events overnight : neg 3L febrile 37 FiO2 - 30 I/O = neg 5400 Drips: bicarb , heparin , NS Pressors: LEVO hemodynamically stable Sedation gtt: ( RASS -2 ) prx 0.7, prop , fent 175 VENT SETTINGS and ABG reviewed Not candidate for SBT today REVIEWED Cardiovascular Stability / Sedation Score / FI02/PEEP / ABG / CXR Consultants: shanel Hospital course: 04/16 - increased effusions 04/17 - AFIB RVR 04/18- started on lasix gtt- neg 3L 04/19 A/P Acute resp failure - in vent 30% - will assess for liberation today - developed intermittent tachycardia during weaning trials of sedation and the ventilator. -decrease sedation today - UNLIKELY TO BE EXTUBATED TODAY - CXR IS WORSENIGN STARTIONG ON 04/16 - INCREASING EFFUSION AND POSSIBLE INFILTRATES R>L - WILL ATTEMPT MORE DIURESIS - might need thoracentesis A/Ch CHF - EF 70 % - as per cards - will stop IVF with improved Cr and negative 6 L urine output and pulm HTN - lasix gtt 04/17 - FLUID STATUS NEGATIVE - >TO CONT Shock - cards vs other - weaning down LEVO 0,7 - cortisol= 20 on 04/16 Pulm HTN - severe as per ECHO -- RBSP 90 mm Hg etiology to be established , cont AC - as per cards - discussed with Dr Queen - patient is followed in [facility] ( but not on any meds for pulnm HTN AVR with metallic valve - on heparin GTT LEONORA- improved , - stop bicarb gtt 04/19 ID - on levofloxacin empiric 04/14 - cx neg AMS change - CTH neg -tox screen neg , ammonia WNL -follow closely with decreasing seation Chirrosis/ CAPELLAN with recurrent ascites -tunneled peritoneal catheter placement 04/19 Poor tolerance off TF - try to decrease opioids , prm reglan Lines : Scl LEFT (Central Line Necessity Reviewed) Trevino: + OG: Nutrition: TF to start 04/16 Analgesia: Anxiety/ delirium VTE Prophylaxis: hep gtt Stress Ulcer Prophylaxis: Glycemic Control: Plans in collaboration with bedside consultants and IM MDs. Discussed with RN to reach out if any questions or concerns A total of 33 minutes of critical care time was devoted to this patient today, required to treat and/or prevent further deterioration of critical care condition ( as above) . ROBBIE MILLER MD Apr 19, 2021 09:17
[2021-04-19] MEDS ORDERED: proPOfol 200 MG/20 ML (DIPRIVAN) VIAL IV ONE (11:01)
[2021-04-19] MEDS ORDERED: NS IV 500 ML 500 ML ONE (11:13)
[2021-04-19] MEDS: MIDAZOLAM DRIP PRE-MIX 100 ML IV SCH (12:05)
--- NOTE | 2021-04-19 12:10 | Progress Note-Post Operative ---
Post-Operative Progess Note Surgeon (s)/Coal Pulverizer Operator (s) Surgeon AFSHIN CARMICHAEL MD Coal Pulverizer Operator: none Pre-Operative Diagnosis recurrent sx ascites secondary CAPELLAN Post-Operative Diagnosis same Procedure & Operative Findings Date of Procedure 04/19/21 Procedure Performed/Findings placement tunneled intraperitoneal catheter Anesthesia Type mac with local Estimated Blood Loss Estimated blood loss (mL): minimal Specimens/Packing Specimens Removed none AFSHIN CARMICHAEL MD Apr 19, 2021 12:10
--- NOTE | 2021-04-19 13:13 | Progress Note - Hospitalist ---
JAIRON ARITA [facility] 04/19/21 1313: Subjective HPI/CC On Admission Date Seen by Provider: Apr 19, 2021 Time Seen by Provider: 07:30 Chief complaint: Septic shock with respiratory failure History of present illness: This is a 61-year-old white female who was transferred to the nearest cardiac [facility] instead of her usual [facility] med admission due to what appeared to be an ST elevation ID. She was diagnosed with shock and intubated for airway safety. She was found to have potassium of 7.2 giving rise to what appeared to be a STEMI but it was not. Dr. Queen had been in the ER awaiting her arrival. Considering no STEMI she was admitted to ICU with septic shock possibly from SBP considering UA and chest x-ray were within normal limits. She appears to be very debilitated and I did review [facility] records and she receives paracenteses on a regular basis due to end-stage liver disease and she had been holding her Coumadin due to requiring the procedure. Her INR was 1.6. Echocardiogram revealed severely elevated PA pressure so heparin drip was initiated due to suspicion for massive PE. Chronic kidney disease precluded angiogram to confirm suspicion of PE. She does have paroxysmal atrial fibril lation. After pancultured she was placed on Levaquin for SBP coverage. Patient appears to be very end-of-life. Subjective/Events-last exam Patient intubated and following simple commands S/P Paracentesis CXR - revealed Bilateral pleural effusion AB.52/36/72/29 Continues to require Levophed Objective Exam Vital Signs Vital Signs Date Time Temp Pulse Resp B/P (MAP) Pulse Ox O2 Delivery O2 Flow Rate FiO2 04/19/21 12:55 96 20 103/65 (81) Mechanical Ventilator 30.00 04/19/21 12:50 100 04/19/21 12:24 30 04/19/21 12:00 36.5 Capillary Refill : Less Than 3 Seconds General Appearance: No Apparent Distress, Chronically ill HEENT: PERRL/EOMI, Normal ENT Inspection (Intubated) Neck: Non Tender, Supple Respiratory: Chest Non Tender, No Accessory Muscle Use, No Respiratory Distress, Other (Breath sounds are improved) Cardiovascular: Normal Peripheral Pulses (2+ radial pulses bilaterally), Systolic Murmur, Tachycardia Gastrointestinal: Non Tender, Soft Extremity: Non Tender, No Calf Tenderness Neurologic/Psychiatric: Alert, Other (Following simple commands) Results/Procedures Lab Laboratory Tests 04/19/21 04:36 Patient resulted labs reviewed. Assessment/Plan Assessment and Plan Assess & Plan/Chief Complaint Assessment: Fungal UTI Pleural effusion Septic shock Respiratory failure intubated in ER Severe hyperkalemia (resolved (4.0) Chronic kidney disease End-stage liver disease Ascites receiving paracentesis often at [facility] Possible SBP placed on Levaquin renal dosed Paroxysmal atrial fibrillation Aortic valve replacement Plan: Scheduled for a tunneled catheter to continue drainage of ascites CXR worsening S/P Paracentesis Diflucan for UTI [facility] not accepting Transfer Continue antiobiotics Currently requiring Levophed, Requiring less pressor Appreciate Cardiology Prognosis guarded ROMINA ARREDONDO DO 04/20/21 0525: Subjective Subjective/Events-last exam Very complicated situation Son at bedside Maintain ventilator status Reviewed all meds Paracentesis Review of Systems General: Fatigue, Malaise Objective Exam General Appearance: No Apparent Distress, WD/WN, Chronically ill, Other (intubated) Respiratory: Lungs Clear, Normal Breath Sounds Cardiovascular: Regular Rate, Rhythm, Systolic Murmur, Tachycardia Assessment/Plan Assessment and Plan Assess & Plan/Chief Complaint Vent management Critically ill Prognosis guarded Supervisory-Addendum Brief Verification & Attestation Participated in pt care: history, MDM, physical Personally performed: exam, history, MDM, supervision of care Care discussed with: Medical Student Procedures: n/a Results interpretation: Verified all documentation Verification and Attestation of Medical Student E/M Service A medical student performed and documented this service in my presence. I reviewed and verified all information documented by the medical student and made modifications to such information, when appropriate. I personally performed the physical exam and medical decision making. Romina Arredondo, Apr 20, 2021,05:24 JAIRON ARITA MED STUD Apr 19, 2021 13:13 ROMINA ARREDONDO DO Apr 20, 2021 05:25
[2021-04-19] MEDS: NOREPINEPHRINE 8 MG/250 ML 250 ML IV SCH (15:20)
--- NOTE | 2021-04-19 17:07 | OPERATIVE REPORT ---
DATE OF SERVICE: 04/19/2021 ATTENDING PRIMARY CARE PHYSICIAN: Dr. Garfield Gray. ADMITTING PHYSICIAN: Dr. Solitario. 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 PROCEDURE: Placement tunneled intraperitoneal catheter. SURGEON: Afshin Riggins MD ANESTHESIA: Monitored anesthesia care with local. ESTIMATED BLOOD LOSS: Minimal. FINDINGS: 3 liters of straw yellow exudative fluid. DISPOSITION: The patient tolerated the procedure well. INDICATIONS: The patient is a 61-year-old female, who was found to be unresponsive and cyanotic. She has a multitude of medical problems including valvular heart disease, coronary artery disease, nonalcoholic steatohepatitis, and history of non-Hodgkin's lymphoma. She has been seeing multiple physicians at [facility]. She continued to be hypotensive upon admission and was intubated and started on vasopressors with Levophed and a central venous catheter was placed. She continues to be intubated with trials of extubation; however, she has not been able to tolerate this well. While being admitted, she has developed recurrent abdominal distention with a positive fluid shift wave consistent with recurrent ascites. This was confirmed by ultrasonography and marked in the left lower abdominal quadrant. DESCRIPTION OF PROCEDURE: The abdomen was prepped and draped in standard surgical fashion. 1% lidocaine with epinephrine was then used to anesthetize the overlying skin muscular layer fashion as well as the peritoneal lining. We then proceeded to anesthetize tract through the subcutaneous fat directing slightly lateral and superior. Small skin incisions were then made using a 15 blade. The peritoneal cavity was then cannulated with the cannulated needle and sheath withdrawing of thick yellow fluid. The needle removed and the guidewire was placed through the sheath without any resistance. The catheter was then tunneled with the tunneler and brought out the opening where the guidewire was placed. The dilator and sheath were then placed over the guidewire without any resistance. The guidewire and dilator were then removed and the catheter was placed through the sheath and sheath removed. The catheter was then connected to negative pressure containers withdrawn 3 liters of slightly thick yellow fluid. The small skin opening was then closed with interrupted 4-0 nylon suture. The catheter was sutured to the skin with the same suture. The catheter was then cleaned and covered with sterile gauze followed by large Op-Site. The patient tolerated the procedure well. The catheter may be accessed and used every time she developed symptomatic ascites. Job ID: [id number] DocumentID: [id number] Dictated Date: 04/19/2021 12:16:42 Bonsai Culturist Date: 04/19/2021 17:06:10 Dictated By: AFSHIN RIGGINS MD
[2021-04-19] MEDS: DexMEDEtomidine 250 ML DRIP 250 ML IV SCH (17:21)
[2021-04-20] VITALS (27 sets, daily range): BP systolic 78–136; BP diastolic 53–85
[2021-04-20] MEDS: FUROSEMIDE INJECTION 120 MG in D5W 100 ML IVPB 100 ML IV SCH ×2 (01:06→15:15)
[2021-04-20 04:04] LABS: ABG BASE EXCESS 7.7 MMOL/L (-2.5-2.5); ABG OXYGEN SATURATION 97 % (94-100); ABG PCO2 35 MMHG (35-45); ABG PH 7.55 (7.37-7.43); ABG PO2 72 MMHG (79-93); ABG TCO2 31.9 MMOL/L (21.0-31.0)
[2021-04-20 04:10] LABS: ALLENS TEST YES-POS; INSPIRED O2 21%; PATIENT TEMP 36.4; VENTILATOR YES
[2021-04-20 04:13] LABS: BASOPHILS % (AUTO) 0 % (0-10); EOSINOPHILS # (AUTO) 0.3 10^3/uL (0.0-0.3); EOSINOPHILS % (AUTO) 2 % (0-10); HEMATOCRIT 34 % (35-52); HEMOGLOBIN 11.5 g/dL (11.5-16.0); LYMPHOCYTES # (AUTO) 0.7 10^3/uL (1.0-4.0); LYMPHOCYTES % (AUTO) 6 % (12-44); MEAN CORPUSCULAR HEMOGLOBIN 31 pg (25-34); MEAN CORPUSCULAR HGB CONC 33 g/dL (32-36); MEAN CORPUSCULAR VOLUME 93 fL (80-99); MEAN PLATELET VOLUME 10.2 fL (9.0-12.2); MONOCYTES # (AUTO) 0.6 10^3/uL (0.0-1.0); MONOCYTES % (AUTO) 5 % (0-12); NEUTROPHILS # (AUTO) 10.5 10^3/uL (1.8-7.8); NEUTROPHILS % (AUTO) 86 % (42-75); PLATELET COUNT 179 10^3/uL (130-400); WHITE BLOOD COUNT 12.2 10^3/uL (4.3-11.0)
[2021-04-20 04:23] LABS: ALBUMIN 2.3 GM/DL (3.2-4.5)
[2021-04-20 04:24] LABS: CALCIUM 7.6 MG/DL (8.5-10.1)
[2021-04-20 04:27] LABS: BILIRUBIN,TOTAL 2.1 MG/DL (0.1-1.0)
[2021-04-20 04:28] LABS: PHOSPHORUS 2.3 MG/DL (2.3-4.7)
[2021-04-20 04:29] LABS: CREATININE SERUM 0.78 MG/DL (0.60-1.30)
[2021-04-20 04:31] LABS: MAGNESIUM 1.7 MG/DL (1.6-2.4)
[2021-04-20] MEDS: KCL 20 MEQ TAB (K-DUR) PO SCH (04:53)
[2021-04-20] MEDS: MAGNESIUM 1 GM/100 ML IVPB 100 ML IV SCH ×3 (04:53→06:15)
[2021-04-20] MEDS ORDERED: KCL 20 MEQ TAB (K-DUR) PO ONE ×3 (05:30→09:30)
[2021-04-20 05:31] LABS: EOSINOPHILS % (MANUAL) 3 %; LYMPHOCYTES % (MANUAL) 4 %; MONOCYTES % (MANUAL) 3 %; NEUTROPHILS % (MANUAL) 90 %; RBC MORPH NORMAL
--- NOTE | 2021-04-20 05:40 | Progress Note - Hospitalist ---
Subjective HPI/CC On Admission Date Seen by Provider: Apr 20, 2021 Time Seen by Provider: 10:30 Chief complaint: Septic shock with respiratory failure History of present illness: This is a 61-year-old white female who was transferred to the nearest cardiac [facility] [place] instead of her usual [facility] admission due to what appeared to be an ST elevation ME. She was diagnosed with shock and intubated for airway safety. She was found to have potassium of 7.2 giving rise to what appeared to be a STEMI but it was not. Dr. Queen had been in the ER awaiting her arrival. Considering no STEMI she was admitted to ICU with septic shock possibly from SBP considering UA and chest x-ray were within normal limits. She appears to be very debilitated and I did review [facility] records and she receives paracenteses on a regular basis due to end-stage liver disease and she had been holding her Coumadin due to requiring the procedure. Her INR was 1.6. Echocardiogram revealed severely elevated PA pressure so heparin drip was initiated due to suspicion for massive PE. Chronic kidney disease precluded angiogram to confirm suspicion of PE. She does have paroxysmal atrial fibrillation. After pancultured she was placed on Levaquin for SBP coverage. Patient appears to be very end-of-life. Subjective/Events-last exam Pt the same Intubated In my opinion no chance of recovery Sons were counseled outside of the room regarding this and they were prepared for that statement, so they will likely go to comfort care protocol and terminally extubate due to the fact that has nothing more to offer and she will have minimal chance of getting off the ventilator. Objective Exam Vital Signs Vital Signs Date Time Temp Pulse Resp B/P (MAP) Pulse Ox O2 Delivery O2 Flow Rate FiO2 04/21/21 04:14 92 Mechanical Ventilator 21 04/21/21 03:00 36.4 21.00 04/21/21 02:31 137 24 Capillary Refill : Less Than 3 Seconds General Appearance: No Apparent Distress, Chronically ill, Other (sedated) Respiratory: Decreased Breath Sounds Cardiovascular: Regular Rate, Rhythm Results/Procedures Lab Laboratory Tests 04/20/21 19:50 04/21/21 00:15 Patient resulted labs reviewed. Assessment/Plan Assessment and Plan Assess & Plan/Chief Complaint Assessment: Pleural effusion Septic shock Respiratory failure intubated in ER Severe hyperkalemia (resolved (4.0) Chronic kidney disease End-stage liver disease Ascites receiving paracentesis often at [facility] Possible SBP placed on Levaquin renal dosed Paroxysmal atrial fibrillation Aortic valve replacement Fungal UTI Plan: CXR worsening S/P Paracentesis Diflucan for UTI [facility] not accepting Transfer Continue antiobiotics Currently requiring Levophed, Requiring less pressor Appreciate Cardiology Prognosis guarded Terminally extubate tomorrow, DNR Critical Care Ventilator Management Diagnosis/Problems Diagnosis/Problems (1) Unresponsive Status: Acute (2) Acute respiratory failure Status: Acute (3) Shock (4) Acute kidney injury superimposed on chronic kidney disease (5) Acute on chronic respiratory failure with hypoxia and hypercapnia (6) Bradycardia Status: Acute (7) Chronic renal failure Status: Acute (8) Chronic anticoagulation Status: Acute (9) Chronic liver failure Status: Acute (10) Hyperkalemia Status: Acute (11) Ascites Status: Acute (12) Hyponatremia Status: Acute JAYDEN ARREDONDO DO Apr 20, 2021 05:40
--- NOTE | 2021-04-20 06:49 | Occ Therapy Progress Note ---
Therapy Progress Note Pt is currently intubated. OT will initiate treatment when pt is medically stable and able to actively participate in skilled therapy. FRANCISCO JAVIER REGALADO Apr 20, 2021 06:49
--- NOTE | 2021-04-20 07:39 | Diagnostic Imaging Report ---
INDICATION: Lower respiratory infection Portable chest 12:41 AM There is an ET tube projecting over the trachea. NG tube enters the stomach. There are postoperative changes from valve repair surgery. Left subclavian central line tip projects over the SVC. There is cardiomegaly with pulmonary vascular congestion, interstitial edema and right pleural effusion. IMPRESSION: Congestive heart failure. Slight interval improvement compared to previously. Dictated by: Dictated on workstation # [id number]
[2021-04-20] MEDS ORDERED: FLUCONAZOLE 100 MG/50 ML IVPB IV SCH (09:00)
--- NOTE | 2021-04-20 09:07 | Cardiology Progress Note ---
Progress Note-Cardiology Events since last exam Date Seen by Provider: Apr 20, 2021 Time Seen by Provider: 09:06 Events since last exam I am following her due to heart failure with preserved ejection fraction as well as atrial fibrillation and mechanical aortic valve replacement. She remains intubated and sedated in the intensive care unit. Today she was not responsive on sedation whereas on 04/19 and 04/18 she was awake and nodding to questions but her sedation was increased overnight. She did undergo successful paracentesis for a total of 3 L. Peritoneal catheter remains in place. This is a tunneled catheter that was placed by general surgery. Certain portions of this document may have been dictated utilizing voice recognition technology. Inherent to this technology, typographical and grammatical errors may exist. As much as I am diligent to identify and correct these mistakes, some errors may remain in the document. Vitals Last set of Vitals Signs Vital Signs 04/20/21 04/20/21 04/20/21 02:37 04:00 10:00 Temp 36.4 Pulse 97 Resp 24 B/P (MAP) 103/69 (80) Pulse Ox 96 O2 Delivery Mechanical Ventilator O2 Flow Rate 21.00 FiO2 21 Labs Labs Laboratory Tests 04/20/21 03:50 Exam Vital Signs Vital Signs Date Time Temp Pulse Resp B/P (MAP) Pulse Ox O2 Delivery O2 Flow Rate FiO2 04/20/21 10:00 97 24 103/69 (80) 96 Mechanical Ventilator 21.00 04/20/21 04:00 21 04/20/21 02:37 36.4 Physical Exam General: Intubated and sedated. Well nourished and appears older than stated age. Eye: Conjunctivae are clear. There are no xanthelasma. HENT: Normocephalic. Atraumatic. Carotid pulsations 2/2 without bruits. Neck: Jugular venous pressure does not appear elevated. No thyromegaly appreciated. Respiratory: Symmetrical expansion bilaterally. Coarse breath sounds due to the ventilator. Cardiovascular: Normal rate. Irregular rhythm. Metallic S2. 3/6 systolic ejection murmur. No gallop. Point of maximal impulse is not appear displaced. Good pulses equal in all extremities. No edema. Gastrointestinal: Soft. Normal bowel sounds. Skin: Skin turgor is normal. There is no pallor. Musculoskeletal: No obvious deformities. Neurologic: Intubated and sedated. Psychiatric: Not obtainable due to clinical status. Labs Laboratory Tests Test 04/19/21 11:59 04/19/21 17:47 04/19/21 23:56 04/20/21 03:48 Range/Units Glucometer 105 88 88 70-110 MG/DL Blood Gas Puncture Site LEFT RADIAL Blood Gas Patient Temperature 36.4 Arterial Blood pH 7.55 H 7.37-7.43 Arterial Blood Partial Pressure CO2 35 35-45 MMHG Arterial Blood Partial Pressure O2 72 L 79-93 MMHG Arterial Blood HCO3 31 H 23-27 MMOL/L Arterial Blood Total CO2 31.9 H 21.0-31.0 MMOL/L Arterial Blood Oxygen Saturation 97 94-100 % Arterial Blood Base Excess 7.7 H -2.5-2.5 MMOL/L Joshua Test YES-POS Blood Gas Ventilator Setting YES Blood Gas Inspired Oxygen 21% Test 04/20/21 03:50 Range/Units White Blood Count 12.2 H 4.3-11.0 10^3/uL Red Blood Count 3.72 L 3.80-5.11 10^6/uL Hemoglobin 11.5 11.5-16.0 g/dL Hematocrit 34 L 35-52 % Mean Corpuscular Volume 93 80-99 fL Mean Corpuscular Hemoglobin 31 25-34 pg Mean Corpuscular Hemoglobin Concent 33 32-36 g/dL Red Cell Distribution Width 18.8 H 10.0-14.5 % Platelet Count 179 130-400 10^3/uL Mean Platelet Volume 10.2 9.0-12.2 fL Immature Granulocyte % (Auto) 1 % Neutrophils (%) (Auto) 86 H 42-75 % Lymphocytes (%) (Auto) 6 L 12-44 % Monocytes (%) (Auto) 5 0-12 % Eosinophils (%) (Auto) 2 0-10 % Basophils (%) (Auto) 0 0-10 % Neutrophils # (Auto) 10.5 H 1.8-7.8 10^3/uL Lymphocytes # (Auto) 0.7 L 1.0-4.0 10^3/uL Monocytes # (Auto) 0.6 0.0-1.0 10^3/uL Eosinophils # (Auto) 0.3 0.0-0.3 10^3/uL Basophils # (Auto) 0.0 0.0-0.1 10^3/uL Immature Granulocyte # (Auto) 0.1 0.0-0.1 10^3/uL Neutrophils % (Manual) 90 % Lymphocytes % (Manual) 4 % Monocytes % (Manual) 3 % Eosinophils % (Manual) 3 % Blood Morphology Comment NORMAL Activated Partial Thromboplast Time 76 H 24-35 SEC Sodium Level 132 L 135-145 MMOL/L Potassium Level 3.0 L 3.6-5.0 MMOL/L Chloride Level 95 L 98-107 MMOL/L Carbon Dioxide Level 27 21-32 MMOL/L Anion Gap 10 5-14 MMOL/L Blood Urea Nitrogen 13 7-18 MG/DL Creatinine 0.78 0.60-1.30 MG/DL Estimat Glomerular Filtration Rate 87 BUN/Creatinine Ratio 17 Glucose Level 111 H 70-105 MG/DL Calcium Level 7.6 L 8.5-10.1 MG/DL Corrected Calcium 9.0 8.5-10.1 MG/DL Phosphorus Level 2.3 2.3-4.7 MG/DL Magnesium Level 1.7 1.6-2.4 MG/DL Total Bilirubin 2.1 H 0.1-1.0 MG/DL Aspartate Amino Transf (AST/SGOT) 34 5-34 U/L Alanine Aminotransferase (ALT/SGPT) 20 0-55 U/L Alkaline Phosphatase 139 H 40-136 U/L Total Protein 5.0 L 6.4-8.2 GM/DL Albumin 2.3 L 3.2-4.5 GM/DL Diagnosis/Problems Diagnosis/Problems (1) Acute on chronic heart failure with preserved ejection fraction (HFpEF) Assessment & Plan: She probably has some degree of acute on chronic pulmonary congestion. She also has superimposed severe pulmonary hypertension. She did receive intravenous fluid resuscitation. Her chest x-rays have shown persistent pulmonary congestion but starting to improve. I have her on furosemide infusion to help with diuresis. I chose the infusion because she is still on norepinephrine due to shock.. She was on spironolactone 75 mg twice daily at home. This may have contributed to her hyperkalemia that was present at the time of admission. She has now been having problems with low potassium. I restarted a low-dose of spironolactone on 04/18. This may also help with her ascites. (2) Paroxysmal atrial fibrillation Assessment & Plan: She has a history of paroxysmal atrial fibrillation. Heart rates continue to be elevated at times even despite intravenous amiodarone which was started on 04/17. She may develop intermittent tachycardia during weaning trials of sedation and the ventilator. I have her on intravenous heparin due to the aortic valve replacement. I told the nurse she can stop the amiodarone when the current bag finishes. However, she may need to resume the amiodarone infusion if she develops tachycardia during weaning trials. I would not place the patient on oral amiodarone since I am only using this intravenous amiodarone for rate control. Once she has finished with any invasive procedures, she will need to get back on warfarin. She is not a good candidate for a beta-gulshan si nce she remains in shock requiring norepinephrine infusion. (3) Shock Assessment & Plan: Exact etiology unclear. This is probably multifactorial. However, her ejection fraction is normal and she has a mechanical aortic valve prosthesis that appears to be functioning normally which makes cardiogenic shock unlikely. The nurses continue to attempt to wean norepinephrine. If we cannot wean off the norepinephrine infusion, at some point we may want to consider starting her on oral midodrine. (4) Complete heart block Assessment & Plan: Now resolved. She appears as though she may have an ectopic atrial rhythm versus underlying atrial fibrillation at the time of admission and then developed complete heart block that required temporary external pacing. This may have been related to the severe hyperkalemia that has now improved with treatment. (5) Pulmonary hypertension Assessment & Plan: Her echocardiogram from 04/14 shows severe pulmonary hypertension that is of unknown etiology but this is known to be chronic. This may complicate weaning from the ventilator. (6) History of aortic valve replacement with metallic valve Assessment & Plan: Her echocardiogram echocardiogram from 04/14 showed what appears to be a probable [employer] [facility] aortic valve that appears to be functioning normally without significant stenosis or regurgitation. I have her on intravenous heparin due to the mechanical aortic valve. Ultimately, she will need to get back on her warfarin as outlined above. (7) Acute on chronic respiratory failure with hypoxia and hypercapnia Assessment & Plan: Exact etiology unclear. I suspect this is multifactorial including some degree of heart failure. The respiratory failure is being managed by the hospitalist and ed manager. Weaning trials from the ventilator are in process. (8) Acute kidney injury superimposed on chronic kidney disease Assessment & Plan: This may have caused or at least contributed to the hyperkalemia. Her most recent baseline creatinine appears to be somewhere around 1.2. This has improved and remained stable despite furosemide infusion. DUTCH MORILLO JR, MD Apr 20, 2021 09:07
[2021-04-20] MEDS: SPIRONOLACTONE 25 MG (ALDACTONE) TAB PO SCH (10:26)
[2021-04-20] MEDS: FLUCONAZOLE 100 MG/50 ML IV SCH (10:26)
[2021-04-20] MEDS: LACTULOSE SYRUP 10GM/15ML (ENULOSE) 30ML UDC NG SCH ×3 (10:26→20:22)
[2021-04-20] MEDS: PANTOPRAZOLE 40 MG (PROTONIX) VIAL IV SCH (10:26)
[2021-04-20] MEDS ORDERED: fentaNYL INJ 100 MCG/2 ML AMP IV ONE (10:32)
[2021-04-20] MEDS ORDERED: MIDAZOLAM 5 MG/5 ML (VERSED) VIAL IJ ONE (10:32)
--- NOTE | 2021-04-20 11:44 | Tele-ICU Progress Note ---
Subjective Date Seen by a Provider: Apr 20, 2021 Time Seen by a Provider: 11:44 Sepsis Event Evaluation Height, Weight, BMI Height: '" Weight: lbs. oz. kg; 21.00 BMI Method: Exam Exam Patient acknowledged, consented, and participated in this virtual visit which was conducted using real time audio/video Vital Signs Date Time Temp Pulse Resp B/P (MAP) Pulse Ox O2 Delivery O2 Flow Rate FiO2 04/20/21 10:00 97 24 103/69 (80) 96 Mechanical Ventilator 21.00 04/20/21 09:00 97 24 102/66 (78) 96 Mechanical Ventilator 21.00 04/20/21 08:00 96 34 95/68 (77) 96 Mechanical Ventilator 21.00 04/20/21 07:00 96 04/20/21 07:00 96 31 90/62 (71) 95 Mechanical Ventilator 21.00 04/20/21 06:00 97 26 101/66 (78) 96 Mechanical Ventilator 21.00 04/20/21 05:13 122 88 04/20/21 05:00 96 20 104/67 (79) 96 Mechanical Ventilator 21.00 04/20/21 04:00 98 29 102/68 (79) 96 Mechanical Ventilator 21.00 04/20/21 04:00 98 Mechanical Ventilator 21 04/20/21 03:00 98 20 103/66 (78) 95 Mechanical Ventilator 21.00 04/20/21 02:37 36.4 Mechanical Ventilator 21.00 04/20/21 02:00 98 103/65 (78) 95 Mechanical Ventilator 30.00 04/20/21 01:53 98 21 100 30 04/20/21 01:00 100 04/20/21 01:00 97 101/66 (78) 100 Mechanical Ventilator 30.00 04/20/21 00:28 98 Mechanical Ventilator 30 04/20/21 00:00 96 20 96/64 (75) 100 Mechanical Ventilator 30.00 04/19/21 23:00 97 21 99/57 (71) 99 Mechanical Ventilator 30.00 04/19/21 23:00 36.4 Mechanical Ventilator 30.00 04/19/21 22:14 104 21 99 30 04/19/21 22:00 98 21 98/69 (79) 99 Mechanical Ventilator 30.00 04/19/21 21:00 96 24 100/61 (74) 97 Mechanical Ventilator 30.00 04/19/21 20:26 36.2 04/19/21 20:26 96 Mechanical Ventilator 30 04/19/21 20:00 98 20 90/62 (71) 97 Mechanical Ventilator 30.00 04/19/21 19:00 Mechanical Ventilator 30.00 04/19/21 19:00 96 21 95/57 (70) 97 Mechanical Ventilator 30.00 04/19/21 19:00 95 04/19/21 18:45 96 21 97/60 (72) 95 Mechanical Ventilator 30.00 04/19/21 18:30 96 21 96/60 (72) 95 Mechanical Ventilator 30.00 04/19/21 18:25 96 21 97 30 04/19/21 18:15 96 21 97/60 (72) 95 Mechanical Ventilator 30.00 04/19/21 18:00 96 21 97/60 (72) 95 Mechanical Ventilator 30.00 04/19/21 17:45 96 20 97/60 (72) 95 Mechanical Ventilator 30.00 04/19/21 17:30 96 21 91/60 (73) 95 Mechanical Ventilator 30.00 04/19/21 17:21 96 105/70 04/19/21 17:15 96 20 91/60 (71) Mechanical Ventilator 30.00 04/19/21 17:00 96 20 88/59 (73) Mechanical Ventilator 30.00 04/19/21 16:45 96 19 86/54 (65) 96 Mechanical Ventilator 30.00 04/19/21 16:30 96 20 105/64 (87) 97 Mechanical Ventilator 30.00 04/19/21 16:15 96 20 105/68 (83) 93 Mechanical Ventilator 30.00 04/19/21 16:00 96 19 106/67 (83) 98 Mechanical Ventilator 30.00 04/19/21 16:00 36.8 04/19/21 15:45 96 19 109/68 (83) 97 Mechanical Ventilator 30.00 04/19/21 15:30 96 20 103/73 (84) 96 Mechanical Ventilator 30.00 04/19/21 15:26 95 Mechanical Ventilator 30 04/19/21 15:20 96 105/70 04/19/21 15:15 96 32 104/66 (81) 98 Mechanical Ventilator 30.00 04/19/21 15:00 96 49 102/67 (81) 96 Mechanical Ventilator 30.00 04/19/21 14:55 96 37 106/68 (84) 97 Mechanical Ventilator 30.00 04/19/21 14:40 96 28 103/67 (80) 97 Mechanical Ventilator 30.00 04/19/21 14:30 96 26 104/69 (82) 93 Mechanical Ventilator 30.00 04/19/21 14:15 96 102/69 (81) 96 Mechanical Ventilator 30.00 04/19/21 14:11 96 20 96 30 04/19/21 14:00 96 19 101/71 (82) 96 Mechanical Ventilator 30.00 04/19/21 13:45 96 20 99/66 (81) 96 Mechanical Ventilator 30.00 04/19/21 13:30 96 20 101/65 (80) 94 Mechanical Ventilator 30.00 04/19/21 13:10 96 20 101/66 (80) 94 Mechanical Ventilator 30.00 04/19/21 13:00 96 04/19/21 12:55 96 20 103/65 (81) Mechanical Ventilator 30.00 04/19/21 12:50 96 19 102/66 (80) 100 Mechanical Ventilator 30.00 04/19/21 12:45 97 20 100/64 (79) 98 Mechanical Ventilator 30.00 04/19/21 12:40 97 19 102/67 (79) 100 Mechanical Ventilator 30.00 04/19/21 12:35 93 20 106/67 (80) 97 Mechanical Ventilator 30.00 04/19/21 12:30 20 104/68 (82) 30.00 04/19/21 12:25 103/71 (86) 04/19/21 12:24 94 Mechanical Ventilator 30 04/19/21 12:20 97 20 110/71 (88) 96 Mechanical Ventilator 30.00 04/19/21 12:15 96 20 110/70 (91) 96 Mechanical Ventilator 30.00 04/19/21 12:10 97 19 109/70 (87) 97 Mechanical Ventilator 30.00 04/19/21 12:05 97 19 110/73 (88) 97 Mechanical Ventilator 30.00 04/19/21 12:05 98 18 100/70 04/19/21 12:00 36.5 04/19/21 12:00 97 19 108/70 (87) 100 Mechanical Ventilator 30.00 04/19/21 11:55 106/71 (85) 04/19/21 11:50 105/72 (84) 04/19/21 11:45 96 19 101/69 (82) 99 Mechanical Ventilator 30.00 I & O 04/20/21 07:00 Intake Total 1340 ml Output Total 5300 ml Balance -3960 ml Height & Weight Height: '" Weight: lbs. oz. kg; 21.00 BMI Method: General Appearance: No Apparent Distress, WD/WN, Chronically ill, Other (intubated) HEENT: PERRL/EOMI, Normal ENT Inspection (Intubated) Neck: Non Tender, Supple Respiratory: Lungs Clear, Normal Breath Sounds Cardiovascular: Regular Rate, Rhythm, Systolic Murmur, Tachycardia Capillary Refill: Less Than 3 Seconds Gastrointestinal: soft, distended Extremity: Non Tender, No Calf Tenderness Neurologic/Psychiatric: Alert, Other (Following simple commands) Skin: Normal Color Lymphatic: No Adenopathy Results Lab Laboratory Tests 04/19/21 04:36 04/20/21 03:50 Assessment/Plan Assessment/Plan (Tele-ICU Physician , Progress Note ) Available chart/ vitals / labs / Images reviewed Video assessment done using teleICU camera, rest of exam as per RN Discussed with RN , EXAM PER RN Events overnight : neg 3L febrile 37 FiO2 - 21 I/O = neg 4000 Drips: bicarbOFF , heparin Pressors: LEVO hemodynamically stable Sedation gtt: ( RASS -2 ) prx 0.7, prop , fent 175 VENT SETTINGS and ABG reviewed Not candidate for SBT today REVIEWED Cardiovascular Stability / Sedation Score / FI02/PEEP / ABG / CXR Consultants: shanel Hospital course: (04/14) 61F Admitted from [place] ER for STEMI/CHF, hypertension. LEONORA/Hype rkalemic-complete heart block--temporary paccing. INTUBATED. Acute liver failure/cirrhosis. AMS. CTH NEG + SBP, no stemi per md note 04/16 - increased effusions 04/17 - AFIB RVR- amio gtt 04/18- started on lasix gtt- neg 3L 04/19 - tunneled intraperitoneal catheter placed 04/20 - CXR -BETTER effusions , 21% fio2 A/P Acute resp failure - in vent 30% - will assess for liberation today - developed intermittent tachycardia during weaning trials of sedation and the ventilator. -decrease sedation today - open eys , follows some command , very weak Metabolic alcalosis with agressive diuresis - monitor while tryting to extubate A/Ch CHF - EF 70 % - as per cards - will stop IVF with improved Cr and negative 6 L urine output and pulm HTN - lasix gtt 04/17 - FLUID STATUS NEGATIVE - >TO CONT Shock - cards vs other - weaning down LEVO 0,7 - cortisol= 20 on 04/16 Pulm HTN - severe as per ECHO -- RBSP 90 mm Hg etiology to be established , cont AC - as per cards - discussed with Dr Queen - patient is followed in [facility] ( but not on any meds for pulnm HTN AVR with metallic valve - on heparin GTT LEONORA- improved , - stop bicarb gtt 04/19 ID - on levofloxacin empiric 04/14 - cx neg AMS change - CTH neg -tox screen neg , ammonia WNL -follow closely with decreasing seation Chirrosis/ CAPELLAN with recurrent ascites -tunneled peritoneal catheter placement 04/19 Poor tolerance off TF - try to decrease opioids , prm reglan Lines : Scl LEFT (Central Line Necessity Reviewed) Trevino: + OG: Nutrition: TF to start 04/16 Analgesia: Anxiety/ delirium VTE Prophylaxis: hep gtt Stress Ulcer Prophylaxis: Glycemic Control: Plans in collaboration with bedside consultants and IM MDs. Discussed with RN to reach out if any questions or concerns A total of 33 minutes of critical care time was devoted to this patient today, required to treat and/or prevent further deterioration of critical care condition ( as above) . ROBBIE MILLER MD Apr 20, 2021 11:44
--- NOTE | 2021-04-20 13:13 | Occ Therapy Progress Note ---
Therapy Progress Note Due to patients current status, OT will require new orders to initiate treatment when physician deems patient is medically stable and able to actively participate with skilled therapy. FRANCISCO JAVIER REGALADO Apr 20, 2021 13:13
[2021-04-20] MEDS: RT-ALBUTEROL SULF 2.5 MG/3 ML PRE-MIX VIAL INH PRN (14:56)
--- NOTE | 2021-04-20 14:59 | Anesthesia-General Post-Op ---
MAC Patient Condition Mental Status/LOC: Same as Preop Cardiovascular: Satisfactory (on vasopressors) Nausea/Vomiting: Absent Respiratory: Satisfactory (sedated, on vent) Pain: Controlled Complications: Absent Post Op Complications Complications None Follow Up Care/Instructions Patient Instructions None needed. Anesthesiology Discharge Order Discharge Order Patient is still intubated, sedated on vent, stable vital signs with vasopressors titrated as needed, no apparent adverse anesthesia problems. ASHLEY AHN DO Apr 20, 2021 14:59
[2021-04-20] MEDS: MIDAZOLAM DRIP PRE-MIX 100 ML IV SCH (15:12)
[2021-04-20] MEDS: NOREPINEPHRINE 8 MG/250 ML 250 ML IV SCH (15:14)
[2021-04-21] VITALS (15 sets, daily range): BP systolic 78–120; BP diastolic 52–80
[2021-04-21] MEDS: fentaNYL DRIP PRE-MIX 250 ML IV SCH (00:25)
[2021-04-21 00:59] LABS: CALCIUM 7.8 MG/DL (8.5-10.1); CREATININE SERUM 0.8 MG/DL (0.60-1.30); MAGNESIUM 1.7 MG/DL (1.6-2.4); PHOSPHORUS 3.3 MG/DL (2.3-4.7); POTASSIUM 3.7 MMOL/L (3.6-5.0)
[2021-04-21] MEDS: FUROSEMIDE INJECTION 120 MG in D5W 100 ML IVPB 100 ML IV SCH (01:48)
[2021-04-21] MEDS: MAGNESIUM 1 GM/100 ML IVPB 100 ML IV SCH ×2 (02:36→05:57)
[2021-04-21] MEDS ORDERED: POTASSIUM BICARB 20 MEQ (EFFER-K) TABLET NG ONE (03:15)
[2021-04-21] MEDS ORDERED: ALBUMIN 5% 12.5 GM/250 ML 250 ML IV ONE ×2 (03:15→03:29)
[2021-04-21 05:11] LABS: ABG OXYGEN SATURATION 98 % (94-100); ABG PCO2 41 MMHG (35-45); ABG PH 7.47 (7.37-7.43); ABG PO2 84 MMHG (79-93); ABG TCO2 31.2 MMOL/L (21.0-31.0)
[2021-04-21 05:13] LABS: BASOPHILS % (AUTO) 0 % (0-10); EOSINOPHILS # (AUTO) 0.2 10^3/uL (0.0-0.3); EOSINOPHILS % (AUTO) 2 % (0-10); HEMATOCRIT 34 % (35-52); HEMOGLOBIN 11.4 g/dL (11.5-16.0); LYMPHOCYTES # (AUTO) 0.8 10^3/uL (1.0-4.0); LYMPHOCYTES % (AUTO) 7 % (12-44); MEAN CORPUSCULAR HEMOGLOBIN 31 pg (25-34); MEAN CORPUSCULAR HGB CONC 34 g/dL (32-36); MEAN CORPUSCULAR VOLUME 92 fL (80-99); MEAN PLATELET VOLUME 10.4 fL (9.0-12.2); MONOCYTES # (AUTO) 0.7 10^3/uL (0.0-1.0); MONOCYTES % (AUTO) 6 % (0-12); NEUTROPHILS # (AUTO) 9.5 10^3/uL (1.8-7.8); NEUTROPHILS % (AUTO) 84 % (42-75); PLATELET COUNT 207 10^3/uL (130-400); WHITE BLOOD COUNT 11.4 10^3/uL (4.3-11.0)
[2021-04-21 05:23] LABS: INSPIRED O2 PEEP 5.0; PATIENT TEMP 37; VENTILATOR NO
[2021-04-21 05:28] LABS: ALBUMIN 2.6 GM/DL (3.2-4.5); POTASSIUM 3.7 MMOL/L (3.6-5.0)
[2021-04-21 05:31] LABS: TOTAL PROTEIN 5.4 GM/DL (6.4-8.2)
[2021-04-21 05:32] LABS: BILIRUBIN,TOTAL 1.4 MG/DL (0.1-1.0)
[2021-04-21 05:34] LABS: PHOSPHORUS 3.3 MG/DL (2.3-4.7)
[2021-04-21 05:35] LABS: CREATININE SERUM 0.82 MG/DL (0.60-1.30)
[2021-04-21 05:37] LABS: MAGNESIUM 2.5 MG/DL (1.6-2.4)
[2021-04-21] MEDS: KCL 20 MEQ TAB (K-DUR) PO SCH (05:58)
[2021-04-21] MEDS: NOREPINEPHRINE 8 MG/250 ML 250 ML IV SCH (07:57)
[2021-04-21] MEDS: DexMEDEtomidine 250 ML DRIP 250 ML IV SCH (07:58)
[2021-04-21] MEDS: MIDAZOLAM DRIP PRE-MIX 100 ML IV SCH (07:59)
[2021-04-21] MEDS: SPIRONOLACTONE 25 MG (ALDACTONE) TAB PO SCH (08:07)
[2021-04-21] MEDS: FLUCONAZOLE 100 MG/50 ML IV SCH (08:07)
[2021-04-21] MEDS: LACTULOSE SYRUP 10GM/15ML (ENULOSE) 30ML UDC NG SCH (08:07)
[2021-04-21] MEDS: PANTOPRAZOLE 40 MG (PROTONIX) VIAL IV SCH (08:07)
--- NOTE | 2021-04-21 09:25 | Tele-ICU Progress Note ---
Progress Note video rounds completed 61 y/o female who is intubated and DNR Has hx of STEMI and CHF, a fib RVR, cirrhosis and heart block Vent: 20/350/21%/5 Overall stable on maximal medical therapy for cardiac isues Tunnelled peritoneal catheter placed already Focused Exam Height, Weight, BMI Height: '" Weight: lbs. oz. kg; 21.00 BMI Method: Laboratory Tests 04/20/21 19:50 04/21/21 00:15 04/21/21 05:02 Results/Procedures Labs Laboratory Tests 04/20/21 03:50 04/20/21 19:50 04/21/21 00:15 04/21/21 05:02 Patient resulted labs reviewed. NAOMIE BOGGS MD Apr 21, 2021 09:25
--- NOTE | 2021-04-21 09:37 | Cardiology Progress Note ---
Subjective Date Seen by Provider: Apr 21, 2021 Time Seen by Provider: 09:32 Subjective/Events-last exam Patient is sedated and intubated, family at bedside I did not examine the patient, I visited with the nurse and reviewed her records Review of Systems General: Other (Unable to provide review of system) Objective-Cardiology Exam Last Set of Vital Signs Vital Signs 04/21/21 04/21/21 07:51 09:00 Pulse 105 Resp 23 B/P (MAP) 115/69 (84) Pulse Ox 95 O2 Delivery Mechanical Ventilator O2 Flow Rate 21.00 FiO2 21 I&O Intake and Output 04/21/21 00:00 Intake Total 660 ml Output Total 3200 ml Balance -2540 ml Intake Oral 0 ml IV Total 300 ml Tube Feeding 120 ml Other 240 ml Output Urine Total 3200 ml General: Other (Sedated and intubated) Heart: Regular Rate Extremities: No Clubbing, No Cyanosis Neuro: Other (Sedated and intubated) Psych/Mental Status: Other (Sedated and intubated) Results Lab Laboratory Tests 04/20/21 19:50 04/21/21 00:15 04/21/21 05:02 A/P-Cardiology Admission Diagnosis Congestive heart failure, acute on chronic left ventricular diastolic dysfunction Aortic valve replacement Acute respiratory failure Ascites Assessment/Plan Congestive heart failure, acute on chronic left ventricular diastolic dysfunction, responding to diuretics Paroxysmal atrial fibrillation, history of A. fib in the past. Acute respiratory failure, ventilator dependent. Managed by primary care physician Acute renal failure, history of chronic renal insufficiency. Renal function has improved End-stage liver disease, recurrent ascites, history of recurrent paracentesis at Bilateral pleural effusion Overall poor prognosis, the nurse reported to me that family are considering requesting comfort care. NAJMA FRANKS MD Apr 21, 2021 09:37
[2021-04-21] MEDS: LORazepam INJ 2 MG/ML (ATIVAN) VIAL IVP PRN ×8 (11:45→23:23)
[2021-04-21] MEDS: morphine INJ 10 MG/ML 1ML (SYR OR VIAL) IVP PRN ×9 (11:45→22:07)
[2021-04-21] MEDS: GLYCOPYRROLATE 0.2 MG/ML (ROBINUL) 2 ML VIAL IV PRN ×2 (13:16→19:54)
[2021-04-22] MEDS: GLYCOPYRROLATE 0.2 MG/ML (ROBINUL) 2 ML VIAL IV PRN (00:25)
[2021-04-22] MEDS: morphine INJ 10 MG/ML 1ML (SYR OR VIAL) IVP PRN (00:25)
--- NOTE | 2021-04-22 06:37 | Progress Note - Hospitalist ---
Subjective HPI/CC On Admission Date Seen by Provider: Apr 22, 2021 Chief complaint: Septic shock with respiratory failure History of present illness: This is a 61-year-old white female who was transfe rred to the nearest cardiac [employer] Benefits Administrator instead of her usual med admission due to what appeared to be an ST elevation NV. She was diagnosed with shock and intubated for airway safety. She was found to have potassium of 7.2 giving rise to what appeared to be a STEMI but it was not. Dr. Queen had been in the ER awaiting her arrival. Considering no STEMI she was admitted to ICU with septic shock possibly from SBP considering UA and chest x-ray were within normal limits. She appears to be very debilitated and I did review [facility] records and she receives paracenteses on a regular basis due to end-stage liver disease and she had been holding her Coumadin due to requiring the procedure. Her INR was 1.6. Echocardiogram revealed severely elevated PA pressure so heparin drip was initiated due to suspicion for massive PE. Chronic kidney disease precluded angiogram to confirm suspicion of PE. She does have paroxysmal atrial fibrillation. After pancultured she was placed on Levaquin for SBP coverage. Patient appears to be very end-of-life. Objective Exam Vital Signs Vital Signs Date Time Temp Pulse Resp B/P (MAP) Pulse Ox O2 Delivery O2 Flow Rate FiO2 04/21/21 20:00 04/21/21 11:00 103 25 91 Mechanical Ventilator 21.00 04/21/21 10:16 21 04/21/21 07:57 36.3 Capillary Refill : Less Than 3 Seconds Results/Procedures Lab Patient resulted labs reviewed. Assessment/Plan Assessment and Plan Assess & Plan/Chief Complaint Assessment: Pleural effusion Septic shock Respiratory failure intubated in ER Severe hyperkalemia (resolved (4.0) Chronic kidney disease End-stage liver disease Ascites receiving paracentesis often at [facility] Possible SBP placed on Levaquin renal dosed Paroxysmal atrial fibrillation Aortic valve replacement Fungal UTI Plan: CXR worsening S/P Paracentesis Diflucan for UTI [facility] not accepting Transfer Continue antiobiotics Currently requiring Levophed, Requiring less pressor Appreciate Cardiology Prognosis guarded Terminally extubate tomorrow, DNR Critical Care Ventilator Management Diagnosis/Problems Diagnosis/Problems (1) Unresponsive Status: Acute (2) Acute respiratory failure Status: Acute (3) Shock (4) Acute kidney injury superimposed on chronic kidney disease (5) Acute on chronic respiratory failure with hypoxia and hypercapnia (6) Bradycardia Status: Acute (7) Chronic renal failure Status: Acute (8) Chronic anticoagulation Status: Acute (9) Chronic liver failure Status: Acute (10) Hyperkalemia Status: Acute (11) Ascites Status: Acute (12) Hyponatremia Status: Acute JAYDEN ARREDONDO DO Apr 22, 2021 06:37
--- NOTE | 2021-04-22 07:42 | Discharge Summary ---
Discharge Summary Hospital Course Was the Problem List Reviewed?: Yes Problems/Dx: (1) Acute on chronic heart failure with preserved ejection fraction (HFpEF) (2) Paroxysmal atrial fibrillation (3) Shock (4) Complete heart block (5) Pulmonary hypertension (6) History of aortic valve replacement with metallic valve (7) Acute on chronic respiratory failure with hypoxia and hypercapnia (8) Acute kidney injury superimposed on chronic kidney disease Hospital Course Date of Admission: Apr 14, 2021 at 21:37 Admission Diagnosis : Family Physician/Provider: Garfield Gray MD Date of Discharge: 04/22/21 Discharge Diagnosis: Respiratory failure, hyperkalemia, acute kidney injury, end-stage liver disease, congestive heart failure, aortic valve dysfunction, elevated pulmonary arterial pressure Hospital Course: Patient had a very complicated lengthy hospital course most evident in the ICU intubated. ST elevation [place] was assessed in [facility] so she was transferred to the nearest [employer] [facility] instead of [facility] her medical home but no evidence of that but instead it was severe hyperkalemia with potassium of 7.2 with acute kidney injury likely due to spironolactone and acute kidney injury. That was treated aggressively by ICU management. She remained intubated. Unable to extubate due to pulmonary hypertension. She continued to decline and was unable to wean off and with the rest of her medical problems the decision was made to terminally extubate place on comfort care with sons in agreement. She with family at the bedside. Labs and Pending Lab Test: Microbiology 04/14/21 MRSA Screen - Final, Complete MRSA not isolated 04/14/21 Blood Culture - Final, Complete No growth 04/14/21 Urine Culture - Final, Complete YEAST Home Meds Active Reported Lactulose 10 Gm/15 Ml Solution 30 Ml PO Q4H Warfarin Sodium 6 Mg Tablet 6 Mg PO ,,,SAT Klor-Con M20 (Potassium Chloride) 20 Meq Tab.er.prt 20 Meq PO DAILY Warfarin Sodium 3 Mg Tablet 3 Mg PO SUN,E,FR Pantoprazole Sodium 40 Mg Tablet.dr 40 Mg PO BID Ferrous Gluconate 240 Mg Tablet 240 Mg PO DAILY Calcium (Calcium Carbonate) 600 Mg Tablet 1,200 Mg PO DAILY Multivitamin 1 Each Tablet 1 Each PO DAILY Flonase Allergy Relief (Fluticasone Propionate) 9.9 Ml Orient.susp 1 Orient NSEACH DAILY Bumetanide 1 Mg Tablet 2 Mg PO BID TAKES 2 (1MG) TABS Spironolactone 25 Mg Tablet 25 Mg PO BID Vitamin C (Ascorbate Calcium) 500 Mg Tablet 500 Mg PO DAILY Oxybutynin Chloride 5 Mg Tablet 5 Mg PO DAILY Hyoscyamine Sulfate 0.125 Mg Tab.rapdis 0.125 Mg PO Q4H PRN Sertraline HCl 100 Mg Tablet 100 Mg PO BID Euthyrox (Levothyroxine Sodium) 75 Mcg Tablet 75 Mcg PO DAILY Xifaxan (Rifaximin) 550 Mg Tablet 550 Mg PO BID Midodrine HCl 5 Mg Tablet 15 Mg PO TID TAKES 3 (5MG) TABS Metoprolol Tartrate 25 Mg Tablet 12.5 Mg PO BID TAKES OF A 25MG TAB Assessment/Pt Instructions Discharge Planning: <30 minutes discharge planning Discharge Physical Examination Vital Signs Vital Signs Date Time Temp Pulse Resp B/P (MAP) Pulse Ox O2 Delivery O2 Flow Rate FiO2 04/21/21 20:00 04/21/21 11:00 103 25 91 Mechanical Ventilator 21.00 04/21/21 10:16 21 04/21/21 07:57 36.3 Allergies: Coded Allergies: No Known Drug Allergies (Unverified , 09/09/20) Discharge Summary Date of Admission Apr 14, 2021 at 21:37 Date of Discharge Admission Diagnosis Assessment: Septic shock Respiratory failure intubated in ER Severe hyperkalemia Chronic kidney disease End-stage liver disease Ascites receiving paracentesis often at [facility] Possible SBP placed on Levaquin renal dosed Paroxysmal atrial fibrillation Aortic valve replacement Plan: Heparin drip Cardiology consult May need paracentesis Prognosis guarded Comfort Measures/ End of Life Care: Comfort Measures Discharge Diagnosis Assessment: Pleural effusion Septic shock Respiratory failure intubated in ER Severe hyperkalemia (resolved (4.0) Chronic kidney disease End-stage liver disease Ascites receiving paracentesis often at [facility] Possible SBP placed on Levaquin renal dosed Paroxysmal atrial fibrillation Aortic valve replacement Fungal UTI Plan: CXR worsening S/P Paracentesis Diflucan for UTI [facility] not accepting Transfer Continue antiobiotics Currently requiring Levophed, Requiring less pressor Appreciate Cardiology Prognosis guarded Terminally extubate tomorrow, DNR (1) Acute on chronic heart failure with preserved ejection fraction (HFpEF) Assessment & Plan: She probably has some degree of acute on chronic pulmonary congestion. She also has superimposed severe pulmonary hypertension. She did receive intravenous fluid resuscitation. Her chest x-rays have shown persistent pulmonary congestion but starting to improve. I have her on furosemide infusion to help with diuresis. I chose the infusion because she is still on norepinephrine due to shock.. She was on spironolactone 75 mg twice daily at home. This may have contributed to her hyperkalemia that was present at the t chhaya of admission. She has now been having problems with low potassium. I restarted a low-dose of spironolactone on 04/18. This may also help with her ascites. (2) Paroxysmal atrial fibrillation Assessment & Plan: She has a history of paroxysmal atrial fibrillation. Heart rates continue to be elevated at times even despite intravenous amiodarone which was started on 04/17. She may develop intermittent tachycardia during weaning trials of sedation and the ventilator. I have her on intravenous heparin due to the aortic valve replacement. I told the nurse she can stop the amiodarone when the current bag finishes. However, she may need to resume the amiodarone infusion if she develops tachycardia during weaning trials. I would not place the patient on oral amiodarone since I am only using this intravenous amiodarone for rate control. Once she has finished with any invasive procedures, she will need to get back on warfarin. She is not a good candidate for a beta-gulshan since she remains in shock requiring norepinephrine infusion. (3) Shock Assessment & Plan: Exact etiology unclear. This is probably multifactorial. However, her ejection fraction is normal and she has a mechanical aortic valve prosthesis that appears to be functioning normally which makes cardiogenic shock unlikely. The nurses continue to attempt to wean norepinephrine. If we cannot wean off the norepinephrine infusion, at some point we may want to consider starting her on oral midodrine. (4) Complete heart block Assessment & Plan: Now resolved. She appears as though she may have an ectopic atrial rhythm versus underlying atrial fibrillation at the time of admission and then developed complete heart block that required temporary external pacing. This may have been related to the severe hyperkalemia that has now improved with treatment. (5) Pulmonary hypertension Assessment & Plan: Her echocardiogram from 04/14 shows severe pulmonary hypertension that is of unknown etiology but this is known to be chronic. This may complicate weaning from the ventilator. (6) History of aortic valve replacement with metallic valve Assessment & Plan: Her echocardiogram echocardiogram from 04/14 showed what appears to be a probable [employer]i aortic valve that appears to be functioning normally without significant stenosis or regurgitation. I have her on intravenous heparin due to the mechanical aortic valve. Ultimately, she will need to get back on her warfarin as outlined above. (7) Acute on chronic respiratory failure with hypoxia and hypercapnia Assessment & Plan: Exact etiology unclear. I suspect this is multifactorial including some degree of heart failure. 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 Weaning trials from the ventilator are in process. (8) Acute kidney injury superimposed on chronic kidney disease Assessment & Plan: This may have caused or at least contributed to the hyperkalemia. Her most recent baseline creatinine appears to be somewhere around 1.2. This has improved and remained stable despite furosemide infusion. JAYDEN ARREDONDO DO Apr 22, 2021 07:42
== END 2021-04-22 09:30 | disposition expired | DRG 870 ==
LOC: EDUNIT# 18:55 → ER FS 18:56 → ICU 21:37 → EDBD 21:37 → 4TH 04-21 18:28
PROVIDERS: ADMIT Internal Medicine; ATTEND Internal Medicine
PROC: 5A1955Z Respiratory Ventilation, Greater than 96 Consecutive Hours (ICD-10-PCS; 2021-04-14)
PROC: 0BH17EZ Insertion of Endotracheal Airway into Trachea, Via Natural or Artificial Opening (ICD-10-PCS; 2021-04-14)
PROC: 0W9G30Z Drainage of Peritoneal Cavity with Drainage Device, Percutaneous Approach (ICD-10-PCS; principal; 2021-04-19 11:00)
DX: A41.9 Sepsis, unspecified organism (principal); R65.21 Severe sepsis with septic shock; J96.21 Acute and chronic respiratory failure with hypoxia; J96.22 Acute and chronic respiratory failure with hypercapnia; I50.33 Acute on chronic diastolic (congestive) heart failure; N17.9 Acute kidney failure, unspecified; Z66 Do not resuscitate; Z51.5 Encounter for palliative care; Z20.822 Contact with and (suspected) exposure to COVID-19; E87.2 Acidosis; I44.2 Atrioventricular block, complete; C85.90 Non-Hodgkin lymphoma, unspecified, unspecified site; E87.1 Hypo-osmolality and hyponatremia; I48.92 Unspecified atrial flutter; B37.49 Other urogenital candidiasis; K75.81 Nonalcoholic steatohepatitis (NASH); K74.69 Other cirrhosis of liver; I48.0 Paroxysmal atrial fibrillation; E87.5 Hyperkalemia; I27.20 Pulmonary hypertension, unspecified; I25.10 Atherosclerotic heart disease of native coronary artery without angina pectoris; N18.9 Chronic kidney disease, unspecified; S32.9XXD Fracture of unspecified parts of lumbosacral spine and pelvis, subsequent encounter for fracture with routine healing; R00.1 Bradycardia, unspecified; F32.A Depression, unspecified
CPT/HCPCS: 36415; 51702; 70450; 71045; 76942; 80048; 80053; 80061; 80162; 80306; 80320; 80329; 81000; 82140; 82533; 82805; 82947; 83605; 83615; 83735; 83880; 84100; 84132; 84145; 84439; 84443; 84478; 84484; 85007; 85025; 85027; 85379; 85610; 85730; 86141; 87040; 87081; 87088; 87636; 93005; 93041; 93306; 94002; 94003; 94640; 94799; 96374; 96375; 99291